=== PATIENT | male | born 1940 | race Caucasian/White ===

== ENCOUNTER → 2017-06-23 12:22 | Outpatient (CLI) | payer MEDICARE, SELFPAY ==
--- NOTE | 2017-06-23 12:27 | RAD_ITS ---
STUDY: X-RAY - PELVIS REASON FOR EXAM: Male, 76 years old. Low back pain TECHNIQUE: One view of the pelvis was obtained. COMPARISON: None. FINDINGS: The sacroiliac and hip joints are normal. There are no acute fractures or dislocations. A few phleboliths are in the pelvis. RAD/Pelvis 1 or 2 Views IMPRESSION: No fractures. The sacroiliac and hip joints are well-maintained. Electronically Signed: Abdoulaye Gomez, at 8:23 EST Tel , Service support ,
== END ==
PROVIDERS: Family Provider Family Medicine; PCP Family Medicine; Visit Provider Family Medicine
DX: M54.5 Low back pain (principal)
CPT/HCPCS: 72170; 97035; 97110; 97162; 97530

== ENCOUNTER → 2017-07-10 15:03 | Outpatient (CLI) | payer MEDICARE, SELFPAY ==
[2017-07-10 18:33] LABS: Absolute Neutrophil Count 7.5 X10^3/uL (2.0-7.7); Basophil# 0.02 X10^3/uL; Basophil% 0.2 % (0-1); Eosinophil# 0.02 X10^3/uL; Eosinophils% 0.2 % (0-5); Hematocrit 43.9 % (40-54); Hemoglobin 14.9 g/dl (13.0-16.5); Lymphocyte % 8.2 % (19-41); Mean Corp Hgb Conc 33.9 g/gl (32-36); Mean Corpuscular Hgb 32.5 pg (27.0-32.0); Mean Corpuscular Volume 95.9 fL (80-94); Mean Platelet Vol. 10.2 fl (6.2-12.0); Monocyte# 0.32 X10^3/uL; Monocyte% 3.7 % (0-10); Neutrophil % 87.6 % (47-70); Platelet Count 216 K/mm3 (150-450); RBC Distribution Width CV 14.3 % (11.6-14.6); RBC Distribution Width SD 48.2 fl (35.1-43.9); Red Blood Count 4.58 M/mm3 (4.6-6.2); White Blood Count 8.6 K/mm3 (4.4-11.0)
[2017-07-10 18:54] LABS: POSITIVE COUNT NO; POSITIVE DIFFERENTIAL NO; POSITIVE MORPHOLOGY NO
[2017-07-10 18:59] LABS: ALB/GLOB Ratio 1.2 RATIO (0.9-2.4); AST(SGOT) 22 U/L (15-37); Alanine Aminotransfer ALT/SGPT 32 U/L (16-61); Albumin, Serum 3.9 g/dL (3.2-5.0); Alkaline Phosphatase 52 U/L (45-117); Anion Gap 9 (5-15); BUN 10 mg/dL (7-18); BUN/Creat Ratio 11.1 RATIO (10-20); Chloride 104 mmol/L (98-107); EST Glomerular Filtration Rate 87 mL/min (>60); Est Glom Filt Rate - Afr Amer 106 mL/min (>60); Globulin 3.3 g/dL (2.2-4.2); Glucose 113 mg/dL (74-106); Potassium 4.1 mmol/L (3.5-5.1); Protein, Total 7.2 g/dL (6.4-8.2); Sodium Level 140 mmol/L (136-145)
== END ==
PROVIDERS: Family Provider Family Medicine; PCP Family Medicine; Visit Provider Internal Medicine Rheumatology
DX: M05.79 Rheumatoid arthritis with rheumatoid factor of multiple sites without organ or systems involvement (principal); Z79.899 Other long term (current) drug therapy; M17.0 Bilateral primary osteoarthritis of knee; G47.00 Insomnia, unspecified; M21.40 Flat foot [pes planus] (acquired), unspecified foot; M47.897 Other spondylosis, lumbosacral region; I87.2 Venous insufficiency (chronic) (peripheral)
CPT/HCPCS: 36415; 80053; 85025

== ENCOUNTER 2017-07-11 14:30 | Outpatient (RCR) | payer MEDICARE, SELFPAY ==
--- NOTE | 2017-06-01 12:36 | HP.PTEVAL_ITS ---
Patient's Visit Information BRYCE ANN is a 76 year old M referred to Physical Therapy by MD SHAY Hurley with a diagnosis of LOW BACK PAIN. Date of Evaluation: 06/01/17 Physical Therapist: Kyree Dominguez PT, - Visit Plan Frequency: 2x /Week Duration: 4 Weeks Plan: POSTURAL EX'S,DLS,MODALTIES,STRETCHING - Subjective Subjective: This 76 y/o male presents to physical therapy low back pain for several years. Location of symptoms symmtrical lumbar radiates to left buttuck. Symptoms worse AM ,walking,standing,lifting,bending. Symptoms better with sitting. Sleeping okay at night, Coughing/sneezing -. Bowel/ bladder good. Patient has h/o lumbar pain in past had PT. Denies parathezsia/tingling -. Seen Dr cazares. SOCAIL: single. 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 - Pain Bilateral Back Pain Intensity (Out of 10): 8 Pain Intensity Range: 10 - Objective POSTURE: mild foward posture,posterior pelvic tilt. GAIT: mild foward posture normal yesica reciprocal pattern. NUERO: denies parathesia/tingling ,reflexes L3-4,L4-5,L5-S1 1/3. SYMMTRIES:align. MMT: quads/hams 4/5,hip 4-/5,ankle 4/5. LUMBAR ROM: flexion WFL,extension mod/severe,side glides mod loss. FLEXABILTY : hams. PALAPTION: tender piriformis left - Special Tests L/S Slump test left side: Negative L/S Slump test right side: Negative L/S Left Straight Leg Raise: Negative L/S Right Straight Leg Raise: Negative Lumbar Standing: Flexion - Mechanical Response: No effect Lumbar Standing: Flexion - Symptoms During Testing: Increases Lumbar Standing: Flexion - Symptoms After Testing: No worse Lumbar Standing: Extension - Mechanical Response: No effect Lumbar Standing: Extension - Symptoms During Testing: Increases Lumbar Standing: Extension - Symptoms After Testing: No worse Lumbar Lying: Flexion - Mechanical Response: No effect Lumbar Lying: Flexion - Symptoms During Testing: Increases Lumbar Lying: Flexion - Symptoms After Testing: No worse - Goals Goal 1:: Independant with HEP. Goal Time Frame: 4-6 Weeks Goal 2:: Indeendant with posture with ADL'S. Goal Time Frame: 4-6 Weeks Goal 3:: Patient to decrease lumbar pain and buttucks symptoms by 50% to improve function with ADL'S Goal Time Frame: 4-6 Weeks Goal 4:: Patient improve lumbar ROM for function of recovery with less pain. Goal Time Frame: 4-6 Weeks Goal 5:: Patient be able to perform ADL'S ,job demands and housework tasks. Goal Time Frame: 4-6 Weeks - Rehabilitation Potential Physical Therapy Diagnosis: This patient has lumbar pain with decrease lumbar ROM , decrease abdominal /back strength,. pain with function with walking and standing thus benifit from skilled PT Rehabilitation Potential: Good - Anticipated Interventions Patient/Client Instruction: Educate patient on: Condition, Plan of Care For the Purpose of:: To decrease pain, To increase ROM, To improve muscle performance and motor function, To improve ability to perform ADL's, To increase tolerance to activity/condition/position, To improve performance and independence with ADL's, To improve ability of physical actions for home/ community/work/leisure, To improve health of tissue, To decrease soft tissue restriction, To increase flexibility/ROM, To assume or resume ADL's, To improve ability to perform tasks related to life management Therapeutic Exercise to Include: Strength training, Postural training, Flexibilty training, Dynamic Lumbar Stabilization For the Purpose of:: To decrease pain, To increase ROM, To improve muscle performance and motor function, To increase tolerance to activity/condition/ position, To improve performance and independence with ADL's, To improve ability of physical actions for home/community/work/leisure, To improve health of tissue, To decrease soft tissue restriction, To increase flexibility/ROM, To improve health and function, To improve ability to perform tasks related to life management TENS: Yes Cryotherapy (ice pack, ice massage): Yes Thermo therapy (hot pack): Yes Ultrasound (thermal/non thermal): Yes For the Purpose of:: To decrease swelling/inflammation, To improve nutrient delivery to tissue, To increase oxygenation perfusion, To improve health of tissue, To decrease soft tissue restriction Thank you for the opportunity to evaluate your patient. For Medicare and Medicare HMO plans, please review the plan of care and approve it. It will need to be FAXED BACK to us at [phone] for Medicare purposes. Please let me know if there are questions or concerns regarding this plan of care. Physician Signature: Date:
--- NOTE | 2017-07-14 14:13 | HP.PTDCSUM ---
HP - PT D/C Summary It has been my pleasure to treat BRYCE ANN under orders from Gloria Hazel MD, for the diagnosis of LOW BACK PAIN for a total of 10 visit(s). Discharge Date: 07/14/17 Please see the following information for a summary of their discharge status. - Subjective Subjective: Pain is bad with sitting,in morning getting OOB ,walking. Also coughing . pain 10/10 in morning symmtrical lumbar to hams/buttucKl left side. Plan to see DR Gabby Reveles. - Pain Bilateral Back Pain Intensity (Out of 10): 7 - Objective Objective/Function: POSTURE: foward posture ,reduce lordosis. PALPATION: tender L-S /erctor,priformis. GAIT: antalgic gait left side. MMT: hip flexion 3+/5,quads/hams 4-5/5. LUMBAR ROM: mod loss pain,extension severe loss pain right side - Goals Goal 1:: Independant with HEP. Goal 2:: Indeendant with posture with ADL'S. Goal 3:: Patient to decrease lumbar pain and buttucks symptoms by 50% to improve function with ADL'S Goal 4:: Patient improve lumbar ROM for function of recovery with less pain. Goal 5:: Patient be able to perform ADL'S ,job demands and housework tasks. - Plan Plan: recommend ortho consult and further diagnostics - D/C Information Discharge Comments: ortho consult and further diagnostics If there are questions or concerns regarding this patient's physical therapy, please feel free to call me at [phone]. Thank you for the referral of this patient. Sincerely, Kyree Dominguez, PT,
== END 2017-07-11 19:00 | disposition home or self-care (01) ==
LOC: PT 14:30
PROVIDERS: Family Provider Family Medicine; PCP Family Medicine; Visit Provider Family Medicine
DX: M54.5 Low back pain (principal)
CPT/HCPCS: 97012; 97035; 97110; 97162; 97530

== ENCOUNTER → 2017-07-28 11:09 | Outpatient (CLI) | payer MEDICARE, SELFPAY ==
[2017-07-28 11:28] VITALS: BP 128/73; PULSE 84; RESP 16; TEMP 36.6; O2SAT 95; BMI 27.4
== END ==
PROVIDERS: Family Provider Family Medicine; PCP Family Medicine; Visit Provider Internal Medicine Rheumatology
DX: M05.79 Rheumatoid arthritis with rheumatoid factor of multiple sites without organ or systems involvement (principal)
CPT/HCPCS: 96365; J7050; A4216; J1602

== ENCOUNTER → 2017-09-22 11:12 | Outpatient (CLI) | payer MEDICARE, SELFPAY ==
[2017-09-22 11:21] VITALS: BP 135/68; PULSE 84; RESP 16; TEMP 36.6; O2SAT 95; BMI 27.9
== END ==
LOC: MEDOUTP 11:12
PROVIDERS: Family Provider Family Medicine; PCP Family Medicine; Visit Provider Internal Medicine Rheumatology
DX: M05.79 Rheumatoid arthritis with rheumatoid factor of multiple sites without organ or systems involvement (principal)
CPT/HCPCS: 96365; J7050; A4216; J1602

== ENCOUNTER → 2017-09-28 12:12 | Outpatient (CLI) | payer MEDICARE, SELFPAY ==
[2017-09-28 14:19] LABS: Absolute Lymphocyte Count 0.97 X10^3/ul (0.83-4.51); Absolute Neutrophil Count 5.2 X10^3/uL (2.0-7.7); Basophil# 0.02 X10^3/uL; Basophil% 0.3 % (0-1); Eosinophil# 0.07 X10^3/uL; Eosinophils% 1.1 % (0-5); Hematocrit 42.8 % (40-54); Hemoglobin 13.9 g/dl (13.0-16.5); Lymphocyte # 0.97 X10^3/ul (4.0); Lymphocyte % 14.7 % (19-41); Mean Corp Hgb Conc 32.5 g/gl (32-36); Mean Corpuscular Hgb 30.8 pg (27.0-32.0); Mean Corpuscular Volume 94.9 fL (80-94); Mean Platelet Vol. 9.8 fl (6.2-12.0); Monocyte# 0.35 X10^3/uL; Monocyte% 5.3 % (0-10); Neutrophil # 5.17 X10^3/uL (2.7-7.7); Neutrophil % 78.6 % (47-70); Platelet Count 200 K/mm3 (150-450); RBC Distribution Width CV 14.3 % (11.6-14.6); Red Blood Count 4.51 M/mm3 (4.6-6.2); White Blood Count 6.6 K/mm3 (4.4-11.0)
[2017-09-28 14:20] LABS: POSITIVE COUNT NO; POSITIVE DIFFERENTIAL NO; POSITIVE MORPHOLOGY NO
[2017-09-28 14:43] LABS: ALB/GLOB Ratio 1.1 RATIO (0.9-2.4); AST(SGOT) 19 U/L (15-37); Alanine Aminotransfer ALT/SGPT 29 U/L (16-61); Albumin, Serum 3.6 g/dL (3.2-5.0); Alkaline Phosphatase 51 U/L (45-117); Anion Gap 8 (5-15); BUN 6 mg/dL (7-18); BUN/Creat Ratio 7.1 RATIO (10-20); Calcium,Total 8.6 mg/dL (8.5-10.1); Chloride 102 mmol/L (98-107); Creatinine, Serum 0.84 mg/dL (0.70-1.30); EST Glomerular Filtration Rate 94 mL/min (>60); Est Glom Filt Rate - Afr Amer 114 mL/min (>60); Globulin 3.2 g/dL (2.2-4.2); Glucose 94 mg/dL (74-106); Potassium 4.1 mmol/L (3.5-5.1); Protein, Total 6.8 g/dL (6.4-8.2); Sodium Level 138 mmol/L (136-145)
== END ==
LOC: MTLAB 12:14
PROVIDERS: Family Provider Family Medicine; PCP Family Medicine; Visit Provider Internal Medicine Rheumatology
DX: M05.70 Rheumatoid arthritis with rheumatoid factor of unspecified site without organ or systems involvement (principal); Z79.899 Other long term (current) drug therapy; M17.0 Bilateral primary osteoarthritis of knee; G47.00 Insomnia, unspecified; M21.40 Flat foot [pes planus] (acquired), unspecified foot; M47.897 Other spondylosis, lumbosacral region; I87.2 Venous insufficiency (chronic) (peripheral)
CPT/HCPCS: 36415; 80053; 85025

== ENCOUNTER → 2017-11-17 11:22 | Outpatient (CLI) | payer MEDICARE, SELFPAY ==
[2017-11-17 11:36] VITALS: BP 124/75; PULSE 92; RESP 16; TEMP 37.2; O2SAT 97; BMI 28.4
== END ==
LOC: MEDOUTP 11:23
PROVIDERS: Family Provider Family Medicine; PCP Family Medicine; Visit Provider Internal Medicine Rheumatology
DX: M05.79 Rheumatoid arthritis with rheumatoid factor of multiple sites without organ or systems involvement (principal)
CPT/HCPCS: 96365; J7050; A4216; J1602

== ENCOUNTER → 2017-12-11 16:30 | Outpatient (CLI) | payer MEDICARE, SELFPAY ==
[2017-12-11 18:06] LABS: ALB/GLOB Ratio 1.1 RATIO (0.9-2.4); AST(SGOT) 26 U/L (15-37); Absolute Lymphocyte Count 0.77 X10^3/ul (0.83-4.51); Absolute Neutrophil Count 6.2 X10^3/uL (2.0-7.7); Alanine Aminotransfer ALT/SGPT 35 U/L (16-61); Albumin, Serum 3.5 g/dL (3.2-5.0); Alkaline Phosphatase 47 U/L (45-117); Anion Gap 8 (5-15); BUN 9 mg/dL (7-18); BUN/Creat Ratio 9.5 RATIO (10-20); Basophil# 0.01 X10^3/uL; Basophil% 0.1 % (0-1); Calcium,Total 8.6 mg/dL (8.5-10.1); Chloride 104 mmol/L (98-107); Creatinine, Serum 0.94 mg/dL (0.70-1.30); EST Glomerular Filtration Rate 83 mL/min (>60); Eosinophil# 0.01 X10^3/uL; Eosinophils% 0.1 % (0-5); Est Glom Filt Rate - Afr Amer 100 mL/min (>60); Globulin 3.3 g/dL (2.2-4.2); Glucose 90 mg/dL (74-106); Hematocrit 42.2 % (40-54); Lymphocyte # 0.77 X10^3/ul (4.0); Lymphocyte % 10.4 % (19-41); Mean Corp Hgb Conc 33.2 g/gl (32-36); Mean Corpuscular Hgb 31.9 pg (27.0-32.0); Mean Corpuscular Volume 96.1 fL (80-94); Mean Platelet Vol. 10.1 fl (6.2-12.0); Monocyte# 0.41 X10^3/uL; Monocyte% 5.5 % (0-10); Neutrophil # 6.19 X10^3/uL (2.7-7.7); Neutrophil % 83.8 % (47-70); Platelet Count 221 K/mm3 (150-450); Potassium 4.5 mmol/L (3.5-5.1); Protein, Total 6.8 g/dL (6.4-8.2); RBC Distribution Width CV 14.6 % (11.6-14.6); RBC Distribution Width SD 49.3 fl (35.1-43.9); Red Blood Count 4.39 M/mm3 (4.6-6.2); Sodium Level 139 mmol/L (136-145); White Blood Count 7.4 K/mm3 (4.4-11.0)
[2017-12-11 18:08] LABS: POSITIVE COUNT NO; POSITIVE DIFFERENTIAL NO; POSITIVE MORPHOLOGY NO
== END ==
PROVIDERS: Family Provider Family Medicine; PCP Family Medicine; Visit Provider Internal Medicine Rheumatology
DX: M05.70 Rheumatoid arthritis with rheumatoid factor of unspecified site without organ or systems involvement (principal); Z79.899 Other long term (current) drug therapy; M17.0 Bilateral primary osteoarthritis of knee; G47.00 Insomnia, unspecified; M21.40 Flat foot [pes planus] (acquired), unspecified foot; M47.897 Other spondylosis, lumbosacral region; I87.2 Venous insufficiency (chronic) (peripheral)
CPT/HCPCS: 36415; 80053; 85025

== ENCOUNTER → 2018-01-01 16:18 | Outpatient (CLI) | payer MEDICARE, SELFPAY ==
[2018-01-01 17:03] LABS: PSA,Total - Annual Screen 0.56 ng/mL (0.00-4.00)
== END ==
PROVIDERS: Family Provider Family Medicine; PCP Family Medicine; Visit Provider Nurse Practitioner Adult Health
DX: Z12.5 Encounter for screening for malignant neoplasm of prostate (principal)
CPT/HCPCS: 36415; 84153; G0103

== ENCOUNTER → 2018-01-17 14:05 | Outpatient (CLI) | payer MEDICARE, SELFPAY ==
[2018-01-17 14:25] VITALS: BP 111/63; PULSE 69; RESP 18; TEMP 36.9; O2SAT 95; BMI 27.6
== END ==
LOC: MEDOUTP 14:05
PROVIDERS: Family Provider Family Medicine; PCP Family Medicine; Visit Provider Internal Medicine Rheumatology
DX: M05.79 Rheumatoid arthritis with rheumatoid factor of multiple sites without organ or systems involvement (principal)
CPT/HCPCS: 96365; A4216; J1602

== ENCOUNTER → 2018-03-01 12:39 | Outpatient (CLI) | payer MEDICARE, SELFPAY ==
[2018-03-01 14:00] LABS: Absolute Lymphocyte Count 0.77 X10^3/ul (0.83-4.51); Absolute Neutrophil Count 7.5 X10^3/uL (2.0-7.7); Basophil# 0.02 X10^3/uL; Basophil% 0.2 % (0-1); Eosinophil# 0.07 X10^3/uL; Eosinophils% 0.8 % (0-5); Hematocrit 42.6 % (40-54); Hemoglobin 13.8 g/dl (13.0-16.5); Lymphocyte # 0.77 X10^3/ul (4.0); Lymphocyte % 8.6 % (19-41); Mean Corp Hgb Conc 32.4 g/gl (32-36); Mean Corpuscular Hgb 31.8 pg (27.0-32.0); Mean Corpuscular Volume 98.2 fL (80-94); Monocyte# 0.56 X10^3/uL; Monocyte% 6.3 % (0-10); Neutrophil # 7.49 X10^3/uL (2.7-7.7); Platelet Count 194 K/mm3 (150-450); RBC Distribution Width CV 14.1 % (11.6-14.6); RBC Distribution Width SD 51.2 fl (35.1-43.9); Red Blood Count 4.34 M/mm3 (4.6-6.2); White Blood Count 8.9 K/mm3 (4.4-11.0)
[2018-03-01 14:01] LABS: POSITIVE COUNT NO; POSITIVE DIFFERENTIAL NO; POSITIVE MORPHOLOGY NO
[2018-03-01 14:13] LABS: ALB/GLOB Ratio 1.2 RATIO (0.9-2.4); AST(SGOT) 22 U/L (15-37); Alanine Aminotransfer ALT/SGPT 29 U/L (16-61); Albumin, Serum 3.6 g/dL (3.2-5.0); Alkaline Phosphatase 45 U/L (45-117); Anion Gap 9 (5-15); BUN 11 mg/dL (7-18); BUN/Creat Ratio 12.3 RATIO (10-20); Calcium,Total 8.8 mg/dL (8.5-10.1); Chloride 102 mmol/L (98-107); EST Glomerular Filtration Rate 88 mL/min (>60); Est Glom Filt Rate - Afr Amer 106 mL/min (>60); Globulin 3.1 g/dL (2.2-4.2); Glucose 89 mg/dL (74-106); Potassium 4.2 mmol/L (3.5-5.1); Protein, Total 6.7 g/dL (6.4-8.2); Sodium Level 138 mmol/L (136-145)
== END ==
LOC: MTLAB 12:40
PROVIDERS: Family Provider Family Medicine; PCP Family Medicine; Referring Provider Internal Medicine Rheumatology; Visit Provider Internal Medicine Rheumatology
DX: M05.70 Rheumatoid arthritis with rheumatoid factor of unspecified site without organ or systems involvement (principal); Z79.899 Other long term (current) drug therapy; M17.0 Bilateral primary osteoarthritis of knee; G47.00 Insomnia, unspecified; M21.40 Flat foot [pes planus] (acquired), unspecified foot; M47.897 Other spondylosis, lumbosacral region; I87.2 Venous insufficiency (chronic) (peripheral); N40.1 Benign prostatic hyperplasia with lower urinary tract symptoms
CPT/HCPCS: 36415; 80053; 85025

== ENCOUNTER → 2018-03-13 11:04 | Outpatient (CLI) | payer MEDICARE, SELFPAY ==
[2018-03-13 11:20] VITALS: BP 126/68; PULSE 60; RESP 14; TEMP 36.8; O2SAT 96; BMI 28.8
== END ==
LOC: MEDOUTP 11:04
PROVIDERS: Family Provider Family Medicine; PCP Family Medicine; Referring Provider Internal Medicine Rheumatology; Visit Provider Internal Medicine Rheumatology
DX: M05.79 Rheumatoid arthritis with rheumatoid factor of multiple sites without organ or systems involvement (principal)
CPT/HCPCS: 96365; J7050; A4216; J1602

== ENCOUNTER 2018-03-24 11:36 | Emergency (ER) | payer MEDICARE, SELFPAY ==
[2018-03-24 11:37] VITALS: BP 127/70; PULSE 87; RESP 18; TEMP 37.2; O2SAT 99; BMI 28.0
--- NOTE | 2018-03-24 12:27 | CT_ITS ---
STUDY: CT ABDOMEN AND PELVIS WITHOUT CONTRAST REASON FOR EXAM: Male, 77 years old. Pain at umbilicus and rectal pain RADIATION DOSAGE (If Supplied By Facility): CTDIvol = ( 7.61 ) mGy, DLP = ( 334.67 ) mGycm TECHNIQUE: Transaxial images were obtained from the dome of the diaphragm to the symphysis pubis without oral contrast, and without intravenous contrast. Sagittal and coronal images were reconstructed. Individualized dose optimization techniques were used for this CT. COMPARISON: None. FINDINGS: The visualized lung bases are unremarkable. The visualized portions of the heart are within normal limits. Normal liver. There is non-visualization of the gallbladder, which may be secondary to either contraction or a prior cholecystectomy. Normal spleen. Normal pancreas. Normal bilateral adrenal glands. Normal right kidney. Normal left kidney. Normal visualized stomach. Normal small intestine. There are multiple colonic diverticula consistent with diverticulosis. There is non-visualization of the appendix. Normal abdominal aorta. Normal inferior vena cava. Normal retroperitoneum. Normal urinary bladder. There are prostatic calcifications. Fat-containing left inguinal hernia. Umbilical fat hernia. Small fat-containing hernia in the supraumbilical midline anterior abdominal wall. There are diffuse degenerative changes of the visualized lumbar spine. CT/Abdomen/Pelvis without Cont IMPRESSION: Umbilical fat hernia. Small fat-containing hernia in the supraumbilical midline anterior abdominal wall. Fat-containing left inguinal hernia. No bowel herniations are seen. No evidence of acute intestinal pathology or acute obstructive uropathy. Electronically Signed: Aroldo Mcfadden MD at 13:17 EDT Tel , Service support ,
[2018-03-24 13:29] VITALS: BP 110/72; PULSE 72; RESP 16; O2SAT 98
--- NOTE | 2018-03-24 13:29 | ED.VISSUMM ---
- ER Visit Summary Date of Service: 03/24/18 Chief Complaint: Abdominal pain History of Present Illness: The patient is a 77 M who states for the past several weeks he is believe he has had a abdominal hernia. He states the hernia is always gone back again but last night around 1800 hrs. he was eating a large meal and felt his hernia come out and it was painful for him. He was unable to get back in. He comes the emergency department today for evaluation. States he is felt rather constipated lately. He takes narcotic pain medicine for chronic pain. History of rheumatoid arthritis. He states that 30+ years ago he had an umbilical hernia repair. Physical Examination: Afebrile vital signs stable Gen: Well-nourished well-developed Head: Normocephalic atraumatic Eyes: Perrl EOMI ENT: TMs clear no rhinorrhea moist mucous membranes Neck: Supple no lymphadenopathy no JVD nontender CVS: Regular rate rhythm no murmurs normal S1-S2 Respiratory: No distress clear to auscultation bilaterally chest nontender Abdomen: Soft mild tender to palpation in the midline in the supraumbilical region. There is diastases of the abdominal musculature. There is a small hernia felt. Nondistended normal bowel sounds no masses Back: Nontender Extremity: Nontender no edema Skin: Normal color no rash Neuro: alert orientated ?3 CN II-XII intact normal strength sensation reflexes gait cerebellar Psych: Normal affect normal mood Test Results: CT of the abdomen demonstrates a small fat filled supra umbilical hernia. Emergency Department Course and Treatment: There is no incarceration. No obvious bowel obstruction. Advised him to take stool softener and apple juice. He may follow-up with his primary care physician and local surgery learning solutions specialist if he chooses. Advised to eat small meals and to stay hydrated. Impression: 1. Ventral hernia This note was generated with [employer] dictation software. It may contain incorrect words, spelling, and punctuation that were not noted in review of the chart prior to signing ED Disposition - Plan for ED Patient: Disposition: Home or Assisted Living Chief Complaint: Abd Pain Instructions: What Is a Hernia? Referrals: Jeronimo Becker MD [STAFF PHYSICIAN] - (if you wish to follow up with a local surgeon ) Gloria Hazel MD [Primary Care Provider] - (call to arrange follow up appointment)
== END 2018-03-24 13:45 | disposition home or self-care (01) ==
PROVIDERS: Emergency Provider Emergency Medicine; Family Provider Family Medicine; PCP Family Medicine
DX: K43.9 Ventral hernia without obstruction or gangrene (principal); M06.9 Rheumatoid arthritis, unspecified; G89.29 Other chronic pain
CPT/HCPCS: 74176; 99282

== ENCOUNTER → 2018-05-14 11:02 | Outpatient (CLI) | payer MEDICARE, SELFPAY ==
[2018-03-30 14:55] VITALS: BMI 27.8
[2018-05-14 11:24] VITALS: BP 132/74; PULSE 78; RESP 16; TEMP 36.9; O2SAT 97; BMI 28.0
--- OUTSIDE RECORDS SUMMARY | 2018-08-16 00:16 | XMS RPT_ITS ---
:1940 Author Organization [place] Support Name Relationship Address Phone COW Unavailable [address] + [place] [address] RONI NELSON Unavailable [address] + [place] [address] COW Unavailable [address] + [place] [address] RONI NELSON Unavailable [address] + [place] [address] COW Unavailable [address] + [place] [address] RONI NELSON Unavailable [address] + [place] [address] COW Unavailable [address] + [place] [address] RONI NELSON Unavailable [address] + [place] [address] COW Unavailable [address] + [place] [address] RONI NELSON Unavailable [address] + [place] [address] COW Unavailable [address] + [place] [address] RONI NELSON Unavailable [address] + [place] [address] OFELIA ANN Unavailable [address] + [place] [address] COW Unavailable [address] + [place] [address] RONI NELSON Unavailable [address] + [place] [address] OFELIA ANN Unavailable [address] + [place] [address] COW Unavailable [address] + [place] [address] RONI NELSON Unavailable [address] + [place] [address] OFELIA ANN Unavailable [address] + [place] [address] COW Unavailable [address] + [place] [address] RONI NELSON Unavailable [address] + [place] [address] OFELIA ANN Unavailable [address] + [place] [address] COW Unavailable [address] + [place], [place] [address]RONI WELLINGTON Unavailable [address] + [place] [address] OFELIA ANN Unavailable [address] + [facility] [place] [address] + [place] [address] RONI NELSON Unavailable [address] + [place] [address] OFELIA ANN Unavailable [address] + [place] [place] [address] + [place], [place] [address]RONI KRISHNAMURTHY Unavailable [address] + [place] [address] OFELIA ANN Unavailable [address] + [place] [address] + [place], [place] [address]RONI KRISHNAMURTHY Unavailable [address] + [place] [address] OFELIA ANN Unavailable [address] + [place] [address] + [place], [place] [address]RNOI WELLINGTON Unavailable [address] + [place] [address] OFELIA ANN Unavailable [address] + [place] [address] + [place] [address] RONI NELSON Unavailable [address] + [place] [address] OFELIA ANN Unavailable [address] + [place] [address] + [place] [address] RONI NELSON Unavailable [address] + [place] [address] OFELIA ANN Unavailable [address] + [place] [address] + [place] [address] RONI NELSON Unavailable [address] + [place] [address] OFELIA ANN Unavailable [address] + [place] [address] + [place] [address] RONI NELSON Unavailable [address] + [place] [address] OFELIA ANN Unavailable [address] + [place] [address] + [place] [address] RONI NELSON Unavailable [address] + [place] [address] OFELIA ANN Unavailable [address] + [place] [address] + [place] [address] RONI NELSON Unavailable [address] + [place] [address] Care Team Providers Name Role Phone Dayana Plasencia Attending Unavailable Dayana Plasencia Referring Unavailable Gloria Hazel Primary Care Unavailable Jeronimo Becker Attending Unavailable Calabretta, Jeronimo Referring Unavailable Jolliff, Gloria Primary Care Unavailable DeHorta, Josse Consulting Unavailable Calabretta, Jeronimo Consulting Unavailable Jolliff, Gloria Attending Unavailable Jolliff, Gloria Primary Care Unavailable Jolliff, Gloria Referring Unavailable Frank Siu Attending Unavailable Calabretta, Jeronimo Referring Unavailable Vellanki, Dayana Attending Unavailable Vellanki, Dayana Referring Unavailable Jolliff, Gloria Primary Care Unavailable Calabretta, Jeronimo Attending Unavailable Jolliff, Gloria Referring Unavailable Jolliff, Gloria Attending Unavailable Jolliff, Gloria Primary Care Unavailable Vellanki, Dayana Attending Unavailable Vellanki, Dayana Referring Unavailable Jolliff, Gloria Primary Care Unavailable Vellanki, Dayana Attending Unavailable Vellanki, Dayana Referring Unavailable Jolliff, Gloria Primary Care Unavailable Vellanki, Dayana Attending Unavailable Vellanki, Dayana Referring Unavailable Jolliff, Gloria Primary Care Unavailable Vellanki, Dayana Attending Unavailable Vellanki, Dayana Referring Unavailable Jolliff, Gloria Primary Care Unavailable Vellanki, Dayana Attending Unavailable Vellanki, Dayana Referring Unavailable Jolliff, Gloria Primary Care Unavailable Vellanki, Dayana Attending Unavailable Vellanki, Dayana Referring Unavailable Jolliff, Gloria Primary Care Unavailable Tracy, Nelda M Attending Unavailable Tracy, Nelda M Referring Unavailable Jolliff, Gloria Primary Care Unavailable Vellanki, Dayana Attending Unavailable Vellanki, Dayana Referring Unavailable Jolliff, Gloria Primary Care Unavailable Vellanki, Dayana Attending Unavailable Vellanki, Dayana Referring Unavailable Jolliff, Gloria Primary Care Unavailable Vellanki, Dayana Attending Unavailable Vellanki, Dayana Referring Unavailable Jolliff, Gloria Primary Care Unavailable Jolliff, Gloria Primary Care Unavailable Tomi Casiano Attending Unavailable Calabretta, Jeronimo Attending Unavailable Jolliff, Gloria Referring Unavailable Calabretta, Jeronimo Attending Unavailable Calabretta, Jeronimo Referring Unavailable Jolliff, Gloria Primary Care Unavailable DeHorta, Josse Consulting Unavailable PROBLEMS PROBLEMS DATE TYPE CONDITION / CODE ATTENDING STATUS SOURCE 05/15/2018 Unknown Z87.19 - Personal Rosita, Active [place] history of other Counts Include [facility] diseases of the Hospital digestive system / Repository Z87.19(ICD-10) 05/15/2018 Unknown Z98.890 - Other Rosita, Active [place] specified [facility] / Z98.890(ICD-10) Repository 05/21/2018 Unknown R94.31 - Abnormal Sherron, [place] Bottom Active [place] electrocardiogram Community [ECG] [EKG] / Hospital R94.31(ICD-10) Repository 03/30/2018 Unknown K42.9 - Umbilical Calabretta, Active [place] hernia without Counts Include [facility] obstruction or Hospital gangrene / Repository K42.9(ICD-10) 03/01/2018 Unknown Z79.899 - Other long Pardeeplanki, Active [place] term (current) drug [facility] therapy / Hospital Z79.899(ICD-10) Repository 03/01/2018 Unknown 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, 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 / Hospital M17.0(ICD-10) Repository 03/01/2018 Unknown G47.00 - Insomnia, Erinn, Active [place] unspecified / [facility] G47.00(ICD-10) Hospital Repository 03/01/2018 Unknown M21.40 - Flat foot Erinn, Active [place] [pes planus] [facility] (acquired), Hospital unspecified foot / Repository M21.40(ICD-10) 03/01/2018 Unknown M47.897 - Other Vellanki, Active [place] spondylosis, [facility] lumbosacral region / Hospital M47.897(ICD-10) Repository 03/01/2018 Unknown I87.2 - Venous Vellanming, Active [place] insufficiency [facility] (chronic) (peripheral) Hospital / I87.2(ICD-10) Repository 03/01/2018 Unknown M05.70 - Rheumatoid Vellanki, Active [place] arthritis with [facility] rheumatoid factor of Hospital unspecified site Repository without organ or systems involvement / M05.70(ICD-10) 03/01/2018 Unknown N40.1 - Benign Vellanki, Active [place] prostatic hyperplasia [facility] with lower urinary Hospital tract symptoms / Repository N40.1(ICD-10) 07/19/2017 Unknown M54.5 - Low back pain Gloria Hazel Active [place] / M54.5(ICD-10) [facility] Hospital Repository 07/10/2017 Unknown M05.79 - Rheumatoid Vellanki, Active [place] arthritis with [facility] rheumatoid factor of Hospital multiple sites without Repository organ or systems involvement / M05.79(ICD-10) PROCEDURES PROCEDURES No Procedure Records FoundRESULTS RESULTS SURGERY VISIT REPORT Observed: 06/01/2018 Status: F Source: [place] 12:05 PM [facility] REPOSITORY [facility] [address] [place] [address] OFFICE VISIT Date of Service: 05/30/18 MR#: [id number] Acct: [id number] Name: BRYCE ANN Rep #: [id number] : 1940 Provider: Jeronimo Becker MD Age/Sex: 77/M Location: [facility] Status: Signed Intake Intake Visit Reasons: 2 WK F/U Hernia Surgery 05/15 Chief Complaint: SIMPONI Hacksaw Inspector Required: No Is patient in pain?: No Allergies No Known Allergies Allergy (Verified 05/30/18 10:42) Medications Ascorbic Acid [Vitamin C] 500 mg PO DAILY 10/09/14 [History Confirmed 05/30/18] Calcium Carb/Vitamin D [Caltrate-600 With Vit D Tab] 1 tab PO DAILY@0800 10/09/14 [History Confirmed 05/30/18] Cyanocobalamin [Vitamin B12] 5,000 mcg PO DAILY@0800 10/09/14 [History Confirmed 05/30/18] Cyclobenzaprine [Flexeril] 10 mg PO DAILY 10/09/14 [History Confirmed 05/30/18] Folic Acid 1 mg PO DAILY@0800 10/09/14 [History Confirmed 05/30/18] Hydroxychloroquine [Plaquenil] 200 mg PO BIDCM 10/09/14 [History Confirmed 05/30/18] Methotrexate 20 mg PO Q7D 10/09/14 [History Confirmed 05/30/18] predniSONE tablet 10 mg PO DAILY 10/09/14 [History Confirmed 05/30/18] Aspirin [Aspirin, Baby] 81 mg PO DAILY@0800 08/19/16 [History Confirmed 05/30/18] Trazodone HCl 150 mg PO QHS 09/22/17 [History Confirmed 05/30/18] Methocarbamol [Robaxin] 1,500 mg PO DAILY PRN 03/13/18 [History Confirmed 05/30/18] Golimumab [Simponi Aria] IV X1 03/24/18 [History Confirmed 05/30/18] Oxycodone HCl/Acetaminophen [Percocet 5/325] 2 tab PO DAILY PRN 03/24/18 [History Confirmed 05/30/18] Multivitamins,Therapeutic [Multivitamin] 1 tab PO DAILY 05/08/18 [History Confirmed 05/30/18] Subjective Details: Patient is doing well after his umbilical hernia repair. Objective Details: There is some ecchymosis around his incision but no drainage or erythema. No signs of recurrence of hernia. Assessment AND Plan Problems 1. Recurrent umbilical hernia K42.9 Plan Patient is doing well after umbilical hernia surgery. I advised him to take 2 more weeks with no heavy lifting and then he can return to full duty. Follow-up as needed Jeronimo Becker MD Pager: [facility] [address] [place] [address], [address] [place] [address] Office: Coding Level of Care Code Global Post Op Diagnoses Recurrent umbilical hernia K42.9 06/01/18 1205 <Electronically signed by Jeronimo Becker MD> Date Jeronimo Becker MD Cosign Signature: Date (if applicable) CC: Gloria Hazel MD CBC W/DIFF, AUTOMATED Collected: 05/24/2018 Status: F Source: [place] 4:21 PM [facility] REPOSITORY TYPE CODE TESTS RESULT OUT OF RANGE REFERENCE UNITS LAB L100.1000 4.4-11.0 K/mm3 Normal WBC 8.4 LAB L100.1200 4.6-6.2 M/mm3 Low RBC 4.41 LAB L100.1300 13.0-16.5 g/dl Normal HGB 14.2 LAB L100.1400 40-54 % Normal HCT 43.8 LAB L100.1500 80-94 fL High MCV 99.3 LAB L100.1600 27.0-32.0 pg High MCH 32.2 LAB L100.1700 32-36 g/gl Normal MCHC 32.4 LAB L100.1810 11.6-14.6 % Normal RDW CV 14.1 LAB L100.1820 35.1-43.9 fl High RDW SD 51.0 LAB L100.1900 150-450 K/mm3 Normal PLT 221 LAB L100.2000 6.2-12.0 fl Normal MPV 10.1 LAB L100.2100 47-70 % High NEUT% 76.4 LAB L100.2200 19-41 % Low LY% 17.3 LAB L100.2300 0-10 % Normal MONO% 5.4 LAB L100.2400 0-5 % Normal EO% 0.6 LAB L100.2500 0-1 % Normal BASO% 0.2 LAB L100.2550 0.0-0.9 % Normal IM GRAN % 0.100 Result Comment: IG% - Immature Granulocytes (promyelocytes, myelocytes and metamyelocytes) > 1% indicates that a LEFT SHIFT is Present. LAB L100.2620 2.0-7.7 X10 3/uL Normal Absolute Neut 6.4 LAB L100.2720 0.83-4.51 X10 3/ul Normal Absolute Lymph 1.45 Performed By: #### L100.0100 #### [facility] [address] [place], [place], [address] COMPREHENSIVE METABOLIC Collected: 05/24/2018 Status: F Source: [facility] 4:21 PM [facility] REPOSITORY TYPE CODE TESTS RESULT OUT OF RANGE REFERENCE UNITS LAB L501.0100 74-106 mg/dL Normal GLU 92 Result Comment: Please note revised GLUCOSE reference range effective 2017. LAB L501.1000 7-18 mg/dL Normal BUN 11 LAB L501.1100 0.70-1.30 mg/dL Normal CREAT,SERUM 0.88 Result Comment: The validity of the calculated GFR AND GFRAA in patients over 70 years has not been determined. Clinical correlation is essential. LAB L501.1110 >60 mL/min Normal EST GFR 90 Result Comment: Non- GFR Calc LAB L501.1115 >60 mL/min Normal EST GFR - AA 108 Result Comment: GFR Calc LAB L501.1300 10-20 RATIO Normal BUN/CRE 12.5 LAB L501.1500 6.4-8.2 g/dL T Normal PROT 6.8 LAB L501.1800 3.2-5.0 g/dL Normal ALB 3.7 LAB L501.1950 2.2-4.2 g/dL Normal GLOB 3.1 LAB L501.2000 0.9-2.4 RATIO Normal A/G 1.2 LAB L501.2200 8.5-10.1 mg/dL CA Normal 8.9 LAB L501.4100 15-37 U/L Normal AST 23 LAB L501.4305 45-117 U/L Normal ALK P 54 LAB L501.4405 16-61 U/L Normal ALT 28 LAB L501.4600 0.20-1.00 mg/dL T Normal BILI 0.40 LAB L501.5300 136-145 mmol/L NA Normal 142 LAB L501.5600 3.5-5.1 mmol/L K Normal 4.2 LAB L501.5900 98-107 mmol/L CL Normal 104 LAB L501.6100 21.0-32.0 mmol/L Normal CO2 28.0 LAB L501.6200 5-15 Normal GAP 10 Performed By: #### L500.4050 #### [facility] [address] [place], [address] OPERATIVE REPORT Observed: 05/15/2018 Status: F Source: [place] 2:39 PM [facility] REPOSITORY [facility] Medical Records Department [address] [place] [address] Operative Report 05/15/18 1436 MR#: [id number] Acct: [id number] Name: BRYCE ANN Rep #: [id number] : 1940 77 From: Jeronimo Becker MD PCP: Gloria Hazel MD Status: REG [facility] Y Location: [place] [address] Problem List (1) Recurrent umbilical hernia Status: Acute Report of Operation Date of Procedure: 05/15/18 Pre-Operative Diagnosis: Recurrent umbilical hernia Post-Operative Diagnosis: Same Surgery/Procedure Performed:: Recurrent umbilical hernia repair Description of Surgical Findings:: Patient a very small reducible hernia. Type of Anesthesia:: Local MAC Description of Procedure: Patient was brought back to the operating room and MAC anesthesia was induced. The patient's abdomen was prepped and draped in the usual sterile fashion. An incision was marked above the umbilicus. This incision space was then injected with a mixture of lidocaine and Marcaine. Next an incision was made with scalpel and deepened to the subcutaneous tissue. The fascial defect was identified and cleared using electrocautery. The contents were reduced. Next the fascial defect was measured and measured less than 1 cm. It was closed with 2 [id number] 0 Prolene sutures. Next the space was irrigated and the umbilical skin was sutured to the fascia with a 3-0 Vicryl suture. Next the incision was closed with a running 4-0 Monocryl suture and Steri-Strips and a bandage. A cotton ball was placed in the umbilicus for dressing. Patient tolerated the procedure well and was brought to PACU in stable condition. - Admit VTE Documentation VTE Mechan Device Prophylaxis: SCD's 05/15/189 <Electronically signed by Jeronimo Becker MD> Date Jeronimo Becker MD CC: Gloria Hazel MD; Jeronimo Becker MD; Josse James MD Signed DISCHARGE INSTRUCTION Observed: 05/15/2018 Status: F Source: [place] 2:36 PM [facility] REPOSITORY [facility] Medical Records Department [address] [place] [address] Instructions for Home/Discharge Instructions 05/15/18 1434 MR#: [id number] Acct: [id number] Name: BRYCE ANN Rep #: [id number] : 1940 77 From: Jeronimo Becker MD PCP: Gloria Hazel MD Status: [facility] Discharge Diet: Light diet - advance as tolerated Discharge Activity: Return to Normal Activity, May Not Drive - for 2-3 days or while taking narcotic pain meds., May Shower - with the bandage in place 1-2 days after surgery. Lifting Restrictions: 20 pounds for 4 weeks. Additional Activity Instructions:: Climbing stairs is fine, walking is encouraged. Sitting in bed may be uncomfortable. Sitting up using your lateral muscles (sitting up sideways) is usually more comfortable. Do not drive, work heavy equipment of sign legal documents for 24 hours. Pain medications may cause nausea, you should typically eat light foods as you take your pain medications. Pain medications may also cause constipation. If you have difficulty with this, discuss with your doctor. Call your doctor if your incision/area has: Continuous Slow Oozing, Sudden Increased Bleeding, Increased Pain/ Swelling, Increased Redness, Foul Smelling Discharge Call your doctor if you observe: Fever of 101 or Higher Suture Line Care: Avoid Pulling/Pushing, Avoid Pinching/Bending Change Dressing in (Days):: 3 - Leave steri-strips for 1 week. May protect with a guaze bandaid. Cleanse incision/area with: Keep Dressing Clean AND Dry Additional Instructions: Resume aspirin Allergies/Adverse Reactions: Allergies No Known Allergies Allergy (Verified 05/08/18 11:48) Medications to take at Discharge Ascorbic Acid [Vitamin C] 500 mg PO DAILY 10/09/14 Calcium Carb/Vitamin D [Caltrate-600 With Vit D Tab] 1 tab PO DAILY@0800 10/09/14 Cyanocobalamin [Vitamin B12] 5,000 mcg PO DAILY@0800 10/09/14 Cyclobenzaprine [Flexeril] 10 mg PO DAILY 10/09/14 Folic Acid 1 mg PO DAILY@0800 10/09/14 Hydroxychloroquine [Plaquenil] 200 mg PO BIDCM 10/09/14 Methotrexate 20 mg PO Q7D 10/09/14 predniSONE tablet 10 mg PO DAILY 10/09/14 Aspirin [Aspirin, Baby] 81 mg PO DAILY@0800 08/19/16 Trazodone HCl 150 mg PO QHS 09/22/17 Methocarbamol [Robaxin] 1,500 mg PO DAILY PRN 03/13/18 Golimumab [Simponi Aria] IV X1 03/24/18 Oxycodone HCl/Acetaminophen [Percocet 5/325] 2 tab PO DAILY PRN 03/24/18 Multivitamins,Therapeutic [Multivitamin] 1 tablet PO DAILY 05/08/18 Oxycodone HCl/Acetaminophen [Percocet 5/325] 1 - 2 tablet PO Q4H PRN PRN 4 Days #20 tablet 05/15/18 The following prescriptions were given: Oxycodone HCl/Acetaminophen [Percocet 5/325] 1 - 2 tablet PO Q4H PRN PRN 4 Days #20 tablet PRN Reason: Pain Orders to be completed after discharge: 12 Lead EKG [CVS] Time Frame: 05/09/18, Location: None Selected Partial Thromboplast Time Time Frame: 05/09/18, Location: Laboratory Liver Profile Time Frame: 05/09/18, Location: Laboratory Prothrombin Time w/INR Time Frame: 05/09/18, Location: Laboratory Primary Care Physician: Gloria Hazel MD [Primary Care Provider] - Test Results: Test results from this visit will be discussed in further detail at your follow-up appointment, if applicable. Please Follow Up With: Jeronimo Becker MD When: Please call to schedule 2 week follow up appointment. [phone] 05/15/18 1431 <Electronically signed by Jeronimo Becker MD> Date Jeronimo Becker MD CC: Gloria Hazel MD; Josse James MD 12 LEAD ELECTROCARDIOGRAM Observed: 05/11/2018 Status: F Source: [place] 9:57 AM [facility] REPOSITORY [facility] Cardiovascular Services [address] [place] [address] 12 Lead EKG 05/09/18 1603 MR#: [id number] Acct: [id number] Name: BRYCE ANN Rep #: [id number] : 1940 77 From: Frank Siu MD Attending Dr: Jeronimo Becker MD Status: PRE SDC Ordering Dr: Jeronimo Becker MD Date: 05/09/18 Location: [facility] Sex: M C Admitted: Test Reason : PRE-OP Blood Pressure : / mmHG Vent. Rate : 086 BPM Atrial Rate : 086 BPM P-R Int : 168 ms QRS Dur : 082 ms QT Int : 380 ms P-R-T Axes : 059 -18 061 degrees QTc Int : 454 ms Normal sinus rhythm Inferior infarct , age undetermined Cannot rule out Anterior infarct , age undetermined Abnormal ECG Confirmed by SHERRON PERALES, FRANK ([id number]), features editor JOEL OBRIEN ([id number]) on 05/11/2018 9:56:41 AM Referred By: Jeronimo Becker Confirmed By:FRANK SIU MD 05/11/18 0956 Date Frank Siu MD CC: Gloria Hazel MD; Jeronimo Becker MD Signed LIVER PROFILE Collected: 05/09/2018 Status: F Source: [place] 3:37 PM [facility] REPOSITORY TYPE CODE TESTS RESULT OUT OF RANGE REFERENCE UNITS LAB L501.1500 6.4-8.2 g/dL Normal T PROT 6.6 LAB L501.1800 3.2-5.0 g/dL Normal ALB 3.6 LAB L501.1950 2.2-4.2 g/dL Normal GLOB 3.0 LAB L501.4100 15-37 U/L Normal AST 20 LAB L501.4305 45-117 U/L Normal ALK P 60 LAB L501.4405 16-61 U/L Normal ALT 32 LAB L501.4600 0.20-1.00 mg/dL Normal T BILI 0.50 LAB L501.4700 0.00-0.30 mg/dL Normal D BILI 0.12 Performed By: #### L500.3400 #### [facility] [address] [place], [address] CBC-COMPLETE BLOOD CNT Collected: 05/09/2018 Status: F Source: [place] NO DIFF 3:37 PM [facility] REPOSITORY TYPE CODE TESTS RESULT OUT OF RANGE REFERENCE UNITS LAB L100.1000 4.4-11.0 K/mm3 Normal WBC 6.2 LAB L100.1200 4.6-6.2 M/mm3 Low RBC 4.39 LAB L100.1300 13.0-16.5 g/dl Normal HGB 14.1 LAB L100.1400 40-54 % Normal HCT 43.7 LAB L100.1500 80-94 fL High MCV 99.5 LAB L100.1600 27.0-32.0 pg High MCH 32.1 LAB L100.1700 32-36 g/gl Normal MCHC 32.3 LAB L100.1810 11.6-14.6 % Normal RDW CV 14.5 LAB L100.1820 35.1-43.9 fl High RDW SD 52.9 LAB L100.1900 150-450 K/mm3 Normal PLT 213 LAB L100.2000 6.2-12.0 fl Normal MPV 9.7 Performed By: #### L100.0500 #### [facility] [address] [place], [place], [address] PROTHROMBIN TIME W/INR Collected: 05/09/2018 Status: F Source: [place] 3:37 PM [facility] REPOSITORY TYPE CODE TESTS RESULT OUT OF RANGE REFERENCE UNITS LAB L300.4150 11.7-14.9 SECONDS Normal PROTIME 12.9 LAB L300.4200 Normal INR 1.0 Performed By: #### L300.3900, L300.4310 #### [facility] [address] [place], [place], [address] PARTIAL THROMBOPLAST Collected: 05/09/2018 Status: F Source: [place] TIME 3:37 PM [facility] REPOSITORY TYPE CODE TESTS RESULT OUT OF RANGE REFERENCE UNITS LAB L300.4310 24.1-36.2 Seconds Normal PTT 29.6 Performed By: #### L300.3900, L300.4310 #### [facility] [address], [address] SURGERY VISIT REPORT Observed: 03/30/2018 Status: F Source: [place] 3:07 PM [facility] REPOSITORY [facility] [address] [place] [address] OFFICE VISIT Date of Service: 03/30/18 MR#: [id number] Acct: [id number] Name: BRYCE ANN Rep #: [id number] : 1940 Provider: Jeronimo Becker MD Age/Sex: 77/M Location: [facility] Status: Signed Intake Vital Signs03/30/18 Height 5 ft 2 in 03/30/18 Weight: 152 lb 03/30/18 Body Mass Index (BMI) 27.8 Intake Visit Reasons: Umbilical Hernia [facility] ER CT 03/24 Chief Complaint: SIMPONI Hacksaw Inspector Required: No Is patient in pain?: No Allergies No Known Allergies Allergy (Verified 03/30/18 14:55) Medications Ascorbic Acid [Vitamin C] 500 mg PO DAILY 10/09/14 [History Confirmed 03/30/18] Calcium Carb/Vitamin D [Caltrate-600 With Vit D Tab] 1 tab PO DAILY@0800 10/09/14 [History Confirmed 03/30/18] Cyanocobalamin [Vitamin B12] 5,000 mcg PO DAILY@0800 10/09/14 [History Confirmed 03/30/18] Cyclobenzaprine [Flexeril] 10 mg PO DAILY 10/09/14 [History Confirmed 03/30/18] Folic Acid 1 mg PO DAILY@0800 10/09/14 [History Confirmed 03/30/18] Hydroxychloroquine [Plaquenil] 200 mg PO BIDCM 10/09/14 [History Confirmed 03/30/18] Methotrexate 20 mg PO Q7D 10/09/14 [History Confirmed 03/30/18] predniSONE tablet 10 mg PO DAILY 10/09/14 [History Confirmed 03/30/18] Aspirin [Aspirin, Baby] 81 mg PO DAILY@0800 08/19/16 [History Confirmed 03/30/18] Multivit with Iron,Minerals [Cerovite Jr] 1 ea PO DAILY 08/19/16 [History Confirmed 03/30/18] Trazodone HCl 150 mg PO QHS 09/22/17 [History Confirmed 03/30/18] Methocarbamol [Robaxin] 1,500 mg PO DAILY PRN 03/13/18 [History Confirmed 03/30/18] Golimumab [Simponi Aria] 03/24/18 [History Confirmed 03/30/18] Oxycodone HCl/Acetaminophen [Percocet 5/325] 2 tab PO DAILY PRN 03/24/18 [History Confirmed 03/30/18] [facility] Medical History Rheumatoid arthritis (Acute) S/P vasectomy (Acute) Surgical History H/O umbilical hernia repair (Acute) S/P appendectomy (Acute) S/P cataract surgery (Acute) S/P hemorrhoidectomy (Acute) S/P inguinal hernia repair (Acute) S/P inguinal hernia repair (Acute) S/P laparoscopic cholecystectomy (Acute) S/P left colectomy (Acute) S/P rotator cuff repair (Acute) Social History Smoking Status: Former smoker alcohol intake: never HPI HPI HPI: BRYCE ANN, is a 77 M who presents to the office today for umbilical hernia. The patient reports that he has been having bulging for about a year at his umbilical site. He has had history of umbilical hernia repair in 1974 and does not call if any mesh was used. He is also complaining of constipation. ROS General General: No weight change or fatigue Musc Musculoskeletal: Yes rheumatoid arthritis and arthritis Cardio Cardiovascular: No murmur, pacemaker, heart disease, atrial fibrillation, high blood pressure, heart attack, heart stent, palpitations, shortness of breat with exertion or chest pain Psych Psychiatric: No depression or anxiety Resp Respiratory: No shortness of breath, No sleep apnea, No cough, No COPD, No asthma, No emphysema, No wheezing Gastro Gastrointestinal: No abdominal pain, No nausea or vomiting, No diarrhea, Yes constipation, No blood in stool, No acid reflux, No hemorrhoids, No ulcers, No gallbladder problem, No black,tarry stools Additional Details: Umbilical hernia with bulging Jakob Hematologic: Yes blood thinners Exam Const General: cooperative Orientation: alert, oriented x3 Resp Effort AND Inspection: normal respiratory effort Auscultation: clear to auscultation bilaterally Cardio Rate: regular rate Rhythm: regular rhythm Heart Sounds: no murmurs GI Inspection: non-distended Palpation: soft, nontender, hernia umbilical Other: The patient has multiple surgical scars on his abdomen. He has a reducible soft umbilical hernia. Assessment AND Plan Problems 1. Recurrent umbilical hernia K42.9 Plan 1. She has recurrent umbilical hernia. At this time the patient reports that it is growing and is bothersome. The patient's hernia is reducible. I explained that hernia defect itself is very small. Less than 1 cm. I explained that the easiest operation given his steroid status as well as his age would be a primary repair as this is less than 1 cm in size. I would not be placing any mesh. I explained the risks of infection/bleeding/bowel injury. I also explained the possibility of recurrence. The patient is willing to proceed with surgery. I explained that I would be performing this under MAC/local. Jeronimo Becker MD Pager: [facility] [address] [place] [address], [address] [place] [address] Office: Coding Level of Care Code Off vis,new,level 3 Diagnoses Recurrent umbilical hernia K42.9 03/30/18 1507 <Electronically signed by Jeronimo Becker MD> Date Jeronimo Becker MD Cosigner Signature: Date (if applicable) CC: Gloria Hazel MD EMERGENCY DEPARTMENT Observed: 03/24/2018 Status: F Source: RULO SUMMARY 4:15 PM [facility] REPOSITORY [facility] Medical Records Department [address] [place] [address] Emergency Department Summary 03/24/18 1329 MR#: [id number] Acct: [id number] Name: MARISSABRYCE B Rep #: [id number] : 1940 77 From: Tomi Casiano DO PCP: Gloria Hazel MD Status: DEP ER - ER Visit Summary Date of Service: 03/24/18 Chief Complaint: Abdominal pain History of Present Illness: The patient is a 77 M who states for the past several weeks he is believe he has had a abdominal hernia. He states the hernia is always gone back again but last night around 1800 hrs. he was eating a large meal and felt his hernia come out and it was painful for him. He was unable to get back in. He comes the emergency department today for evaluation. States he is felt rather constipated lately. He takes narcotic pain medicine for chronic pain. History of rheumatoid arthritis. He states that 30+ years ago he had an umbilical hernia repair. Physical Examination: Afebrile vital signs stable Gen: Well-nourished well-developed Head: Normocephalic atraumatic Eyes: Perrl EOMI ENT: TMs clear no rhinorrhea moist mucous membranes Neck: Supple no lymphadenopathy no JVD nontender CVS: Regular rate rhythm no murmurs normal S1-S2 Respiratory: No distress clear to auscultation bilaterally chest nontender Abdomen: Soft mild tender to palpation in the midline in the supraumbilical region. There is diastases of the abdominal musculature. There is a small hernia felt. Nondistended normal bowel sounds no masses Back: Nontender Extremity: Nontender no edema Skin: Normal color no rash Neuro: alert orientated 3 CN II-XII intact normal strength sensation reflexes gait cerebellar Psych: Normal affect normal mood Test Results: CT of the abdomen demonstrates a small fat filled supra umbilical hernia. Emergency Department Course and Treatment: There is no incarceration. No obvious bowel obstruction. Advised him to take stool softener and apple juice. He may follow-up with his primary care physician and local surgery assistant education director if he chooses. Advised to eat small meals and to stay hydrated. Impression: 1. Ventral hernia This note was generated with T[employer]ile dictation software. It may contain incorrect words, spelling, and punctuation that were not noted in review of the chart prior to signing ED Disposition - Plan for ED Patient: Disposition: Home or Assisted Living Chief Complaint: Abd Pain Instructions: What Is a Hernia? Referrals: Jeronimo Becker MD [STAFF PHYSICIAN] - (if you wish to follow up with a local surgeon ) Gloria Hazel MD [Primary Care Provider] - (call to arrange follow up appointment) What to do if you have Problems For any increased pain, shortness of breath, bleeding, nausea or vomiting, chest pain, or any unexpected problems, contact your Primary Care Provider. Call [facility] ([phone]) or report to the closest Emergency Room. Call 911 if necessary. 03/24/18 2809 <Electronically signed by Tomi Casiano DO> Date Tomi Casiano DO Cosigner Signature (If Indicated): Date CC: Gloria Hazel MD ABDOMEN/PELVIS WITHOUT Observed: 03/24/2018 Status: F Source: JERROD CONT 12:27 PM [facility] REPOSITORY [facility] Imaging Services [address] [place] [address] Abdomen/Pelvis without Cont MR#: [id number] Acct: [id number] Name: BRYCE ANN Rep #: [id number] : 1940 M 77 From: Aroldo Mcfadden MD PCP: Gloria Hazel MD Status: REG ER Study: Abdomen/Pelvis without Cont Date of Exam: 03/24/18 Exam# [id number] Ordering Dr: Tomi Casiano DO STUDY: CT ABDOMEN AND PELVIS WITHOUT CONTRAST REASON FOR EXAM: Male, 77 years old. Pain at umbilicus and rectal pain RADIATION DOSAGE (If Supplied By Facility): CTDIvol = ( 7.61 ) mGy, DLP = ( 334.67 ) mGycm TECHNIQUE: Transaxial images were obtained from the dome of the diaphragm to the symphysis pubis without oral contrast, and without intravenous contrast. Sagittal and coronal images were reconstructed. Individualized dose optimization techniques were used for this CT. COMPARISON: None. FINDINGS: The visualized lung bases are unremarkable. The visualized portions of the heart are within normal limits. Normal liver. There is non-visualization of the gallbladder, which may be secondary to either contraction or a prior cholecystectomy. Normal spleen. Normal pancreas. Normal bilateral adrenal glands. Normal right kidney. Normal left kidney. Normal visualized stomach. Normal small intestine. There are multiple colonic diverticula consistent with diverticulosis. There is non-visualization of the appendix. Normal abdominal aorta. Normal inferior vena cava. Normal retroperitoneum. Normal urinary bladder. There are prostatic calcifications. Fat-containing left inguinal hernia. Umbilical fat hernia. Small fat-containing hernia in the supraumbilical midline anterior abdominal wall. There are diffuse degenerative changes of the visualized lumbar spine. CT/Abdomen/Pelvis without Cont IMPRESSION: Umbilical fat hernia. Small fat-containing hernia in the supraumbilical midline anterior abdominal wall. Fat-containing left inguinal hernia. No bowel herniations are seen. No evidence of acute intestinal pathology or acute obstructive uropathy. Electronically Signed: Aroldo Mcfadden MD at 13:17 EDT Tel , Service support , CC: Gloria Hazel MD; Tomi Casiano DO Multi Operation Forming Machine Setter: Signed CBC W/DIFF, AUTOMATED Collected: 03/01/2018 Status: F Source: RULO 12:46 PM [facility] REPOSITORY TYPE CODE TESTS RESULT OUT OF RANGE REFERENCE UNITS LAB L100.1000 4.4-11.0 K/mm3 Normal WBC 8.9 LAB L100.1200 4.6-6.2 M/mm3 Low RBC 4.34 LAB L100.1300 13.0-16.5 g/dl Normal HGB 13.8 LAB L100.1400 40-54 % Normal HCT 42.6 LAB L100.1500 80-94 fL High MCV 98.2 LAB L100.1600 27.0-32.0 pg Normal MCH 31.8 LAB L100.1700 32-36 g/gl Normal MCHC 32.4 LAB L100.1810 11.6-14.6 % Normal RDW CV 14.1 LAB L100.1820 35.1-43.9 fl High RDW SD 51.2 LAB L100.1900 150-450 K/mm3 Normal PLT 194 LAB L100.2000 6.2-12.0 fl Normal MPV 10.0 LAB L100.2100 47-70 % High NEUT% 84.0 LAB L100.2200 19-41 % Low LY% 8.6 LAB L100.2300 0-10 % Normal MONO% 6.3 LAB L100.2400 0-5 % Normal EO% 0.8 LAB L100.2500 0-1 % Normal BASO% 0.2 LAB L100.2550 0.0-0.9 % Normal IM GRAN % 0.100 Result Comment: IG% - Immature Granulocytes (promyelocytes, myelocytes and metamyelocytes) > 1% indicates that a LEFT SHIFT is Present. LAB L100.2620 2.0-7.7 X10 3/uL Normal Absolute Neut 7.5 LAB L100.2720 0.83-4.51 X10 3/ul Low Absolute Lymph 0.77 Performed By: #### L100.0100 #### [facility] [address] [place], [place], [address] COMPREHENSIVE METABOLIC Collected: 03/01/2018 Status: F Source: [facility] 12:46 PM [facility] REPOSITORY TYPE CODE TESTS RESULT OUT OF RANGE REFERENCE UNITS LAB L501.0100 74-106 mg/dL Normal GLU 89 Result Comment: Please note revised GLUCOSE reference range effective 2017. LAB L501.1000 7-18 mg/dL Normal BUN 11 LAB L501.1100 0.70-1.30 mg/dL Normal CREAT,SERUM 0.90 Result Comment: The validity of the calculated GFR AND GFRAA in patients over 70 years has not been determined. Clinical correlation is essential. LAB L501.1110 >60 mL/min Normal EST GFR 88 Result Comment: Non- GFR Calc LAB L501.1115 >60 mL/min Normal EST GFR - AA 106 Result Comment: GFR Calc LAB L501.1300 10-20 RATIO Normal BUN/CRE 12.3 LAB L501.1500 6.4-8.2 g/dL T Normal PROT 6.7 LAB L501.1800 3.2-5.0 g/dL Normal ALB 3.6 LAB L501.1950 2.2-4.2 g/dL Normal GLOB 3.1 LAB L501.2000 0.9-2.4 RATIO Normal A/G 1.2 LAB L501.2200 8.5-10.1 mg/dL CA Normal 8.8 LAB L501.4100 15-37 U/L Normal AST 22 LAB L501.4305 45-117 U/L Normal ALK P 45 LAB L501.4405 16-61 U/L Normal ALT 29 LAB L501.4600 0.20-1.00 mg/dL T Normal BILI 0.40 LAB L501.5300 136-145 mmol/L NA Normal 138 LAB L501.5600 3.5-5.1 mmol/L K Normal 4.2 LAB L501.5900 98-107 mmol/L CL Normal 102 LAB L501.6100 21.0-32.0 mmol/L Normal CO2 27.0 LAB L501.6200 5-15 Normal GAP 9 Performed By: #### L500.4050 #### [facility] [address] [place], [address] PSA,TOTAL - ANNUAL Collected: 01/01/2018 Status: F Source: JERROD SCREEN 4:24 PM [facility] REPOSITORY TYPE CODE TESTS RESULT OUT OF RANGE REFERENCE UNITS LAB L501.9910 0.00-4.00 ng/mL Normal PSA,TOT 0.56 SCREEN Result Comment: This test was performed using the TPSA assay method for the [employer] chemistry system. Values obtained with different assay methods cannot be used interchangably. When changing PSA assays in the course of monitoring a patient, additional sequential testing should be carried out to confirm baseline values. Performed By: #### L501.9910 #### [facility] [address] [facility] [place], [address] COMPREHENSIVE METABOLIC Collected: 12/11/2017 Status: F Source: JERROD PROFIL 4:36 PM [facility] REPOSITORY TYPE CODE TESTS RESULT OUT OF RANGE REFERENCE UNITS LAB L501.0100 74-106 mg/dL Normal GLU 90 Result Comment: Please note revised GLUCOSE reference range effective 2017. LAB L501.1000 7-18 mg/dL Normal BUN 9 LAB L501.1100 0.70-1.30 mg/dL Normal CREAT,SERUM 0.94 Result Comment: The validity of the calculated GFR AND GFRAA in patients over 70 years has not been determined. Clinical correlation is essential. LAB L501.1110 >60 mL/min Normal EST GFR 83 Result Comment: Non- GFR Calc LAB L501.1115 >60 mL/min Normal EST GFR - AA 100 Result Comment: GFR Calc LAB L501.1300 10-20 RATIO Low BUN/CRE 9.5 LAB L501.1500 6.4-8.2 g/dL Normal T PROT 6.8 LAB L501.1800 3.2-5.0 g/dL Normal ALB 3.5 LAB L501.1950 2.2-4.2 g/dL Normal GLOB 3.3 LAB L501.2000 0.9-2.4 RATIO Normal A/G 1.1 LAB L501.2200 8.5-10.1 mg/dL Normal CA 8.6 LAB L501.4100 15-37 U/L Normal AST 26 Result Comment: Slight Hemolysis, Result may be falsely increased. LAB L501.4305 45-117 U/L Normal ALK P 47 LAB L501.4405 16-61 U/L Normal ALT 35 LAB L501.4600 0.20-1.00 mg/dL Normal T BILI 0.50 LAB L501.5300 136-145 mmol/L Normal NA 139 LAB L501.5600 3.5-5.1 mmol/L Normal K 4.5 Result Comment: Slight Hemolysis, Result may be falsely increased. LAB L501.5900 98-107 mmol/L Normal CL 104 LAB L501.6100 21.0-32.0 mmol/L Normal CO2 27.0 LAB L501.6200 5-15 Normal 8 GAP Performed By: #### L500.4050 #### [facility] [address] [place], [address] CBC W/DIFF, AUTOMATED Collected: 12/11/2017 Status: F Source: RULO 4:36 PM [facility] REPOSITORY TYPE CODE TESTS RESULT OUT OF RANGE REFERENCE UNITS LAB L100.1000 4.4-11.0 K/mm3 Normal WBC 7.4 LAB L100.1200 4.6-6.2 M/mm3 Low RBC 4.39 LAB L100.1300 13.0-16.5 g/dl Normal HGB 14.0 LAB L100.1400 40-54 % Normal HCT 42.2 LAB L100.1500 80-94 fL High MCV 96.1 LAB L100.1600 27.0-32.0 pg Normal MCH 31.9 LAB L100.1700 32-36 g/gl Normal MCHC 33.2 LAB L100.1810 11.6-14.6 % Normal RDW CV 14.6 LAB L100.1820 35.1-43.9 fl High RDW SD 49.3 LAB L100.1900 150-450 K/mm3 Normal PLT 221 LAB L100.2000 6.2-12.0 fl Normal MPV 10.1 LAB L100.2100 47-70 % High NEUT% 83.8 LAB L100.2200 19-41 % Low LY% 10.4 LAB L100.2300 0-10 % Normal MONO% 5.5 LAB L100.2400 0-5 % Normal EO% 0.1 LAB L100.2500 0-1 % Normal BASO% 0.1 LAB L100.2550 0.0-0.9 % Normal IM GRAN % 0.100 Result Comment: IG% - Immature Granulocytes (promyelocytes, myelocytes and metamyelocytes) > 1% indicates that a LEFT SHIFT is Present. LAB L100.2620 2.0-7.7 X10 3/uL Normal Absolute Neut 6.2 LAB L100.2720 0.83-4.51 X10 3/ul Low Absolute Lymph 0.77 Performed By: #### L100.0100 #### [facility] [address] [facility]. [place], [place], [id number] CBC W/DIFF, AUTOMATED Collected: 09/28/2017 Status: F Source: RULO 12:17 PM [facility] REPOSITORY TYPE CODE TESTS RESULT OUT OF RANGE REFERENCE UNITS LAB L100.1000 4.4-11.0 K/mm3 Normal WBC 6.6 LAB L100.1200 4.6-6.2 M/mm3 Low RBC 4.51 LAB L100.1300 13.0-16.5 g/dl Normal HGB 13.9 LAB L100.1400 40-54 % Normal HCT 42.8 LAB L100.1500 80-94 fL High MCV 94.9 LAB L100.1600 27.0-32.0 pg Normal MCH 30.8 LAB L100.1700 32-36 g/gl Normal MCHC 32.5 LAB L100.1810 11.6-14.6 % Normal RDW CV 14.3 LAB L100.1820 35.1-43.9 fl High RDW SD 49.0 LAB L100.1900 150-450 K/mm3 Normal PLT 200 LAB L100.2000 6.2-12.0 fl Normal MPV 9.8 LAB L100.2100 47-70 % High NEUT% 78.6 LAB L100.2200 19-41 % Low LY% 14.7 LAB L100.2300 0-10 % Normal MONO% 5.3 LAB L100.2400 0-5 % Normal EO% 1.1 LAB L100.2500 0-1 % Normal BASO% 0.3 LAB L100.2550 0.0-0.9 % Normal IM GRAN % 0.000 Result Comment: IG% - Immature Granulocytes (promyelocytes, myelocytes and metamyelocytes) > 1% indicates that a LEFT SHIFT is Present. LAB L100.2620 2.0-7.7 X10 3/uL Normal Absolute Neut 5.2 LAB L100.2720 0.83-4.51 X10 3/ul Normal Absolute Lymph 0.97 Performed By: #### L100.0100 #### [facility] [address] [place], [address] COMPREHENSIVE METABOLIC Collected: 09/28/2017 Status: F Source: [facility] 12:17 PM [facility] REPOSITORY TYPE CODE TESTS RESULT OUT OF RANGE REFERENCE UNITS LAB L501.0100 74-106 mg/dL Normal GLU 94 Result Comment: Please note revised GLUCOSE reference range effective 2017. LAB L501.1000 7-18 mg/dL Low BUN 6 LAB L501.1100 0.70-1.30 mg/dL Normal CREAT,SERUM 0.84 Result Comment: The validity of the calculated GFR AND GFRAA in patients over 70 years has not been determined. Clinical correlation is essential. LAB L501.1110 >60 mL/min Normal EST GFR 94 Result Comment: Non- GFR Calc LAB L501.1115 >60 mL/min Normal EST GFR - AA 114 Result Comment: GFR Calc LAB L501.1300 10-20 RATIO Low BUN/CRE 7.1 LAB L501.1500 6.4-8.2 g/dL Normal T PROT 6.8 LAB L501.1800 3.2-5.0 g/dL Normal ALB 3.6 LAB L501.1950 2.2-4.2 g/dL Normal GLOB 3.2 LAB L501.2000 0.9-2.4 RATIO Normal A/G 1.1 LAB L501.2200 8.5-10.1 mg/dL Normal CA 8.6 LAB L501.4100 15-37 U/L Normal AST 19 LAB L501.4305 45-117 U/L Normal ALK P 51 LAB L501.4405 16-61 U/L Normal ALT 29 LAB L501.4600 0.20-1.00 mg/dL Normal T BILI 0.40 LAB L501.5300 136-145 mmol/L Normal NA 138 LAB L501.5600 3.5-5.1 mmol/L Normal K 4.1 LAB L501.5900 98-107 mmol/L Normal CL 102 LAB L501.6100 21.0-32.0 mmol/L Normal CO2 28.0 LAB L501.6200 5-15 Normal GAP 8 Performed By: #### L500.4050 #### [facility] [address] [place], [address] PT D/C SUMMARY (1) Observed: 07/18/2017 Status: F Source: RULO 2:52 PM [facility] REPOSITORY [facility] Physical Therapy [facility] [address] [place] [address]. [address] [place], [place] [address] Fax REHABILITATION SERVICES DISCHARGE SUMMARY MR#: [id number] Acct: [id number] Name: BRYCE ANN Rep #: [id number] : 1940 76 From: Kyree Dominguez PT, Cert. T, OCS Referring Dr.: Gloria Hazel MD Status: REG RCR Insurance: [employer] MEDICARE PPO SELF PAY INSURANCE HP - PT D/C Summary It has been my pleasure to treat BRYCE ANN under orders from Gloria Hazel MD, for the diagnosis of LOW BACK PAIN for a total of 10 visit(s). Discharge Date: 07/14/17 Please see the following information for a summary of their discharge status. - Subjective Subjective: Pain is bad with sitting,in morning getting OOB ,walking. Also coughing . pain 10/10 in morning symmtrical lumbar to hams/buttucKl left side. Plan to see DR Pierre WEd. - Pain Bilateral Back Pain Intensity (Out of 10): 7 - Objective Objective/Function: POSTURE: foward posture ,reduce lordosis. PALPATION: tender L-S /erctor,priformis. GAIT: antalgic gait left side. MMT: hip flexion 3+/5,quads/hams 4-5/5. LUMBAR ROM: mod loss pain,extension severe loss pain right side - Goals Goal 1:: Independant with HEP. Goal 2:: Indeendant with posture with ADL'S. Goal 3:: Patient to decrease lumbar pain and buttucks symptoms by 50% to improve function with ADL'S Goal 4:: Patient improve lumbar ROM for function of recovery with less pain. Goal 5:: Patient be able to perform ADL'S ,job demands and housework tasks. - Plan Plan: recommend ortho consult and further diagnostics - D/C Information Discharge Comments: ortho consult and further diagnostics If there are questions or concerns regarding this patient's physical therapy, please feel free to call me at [phone]. Thank you for the referral of this patient. Sincerely, Kyree Dominguez, PT, <Electronically signed by Kyree Dominguez PT, Cert. MDT, OCS> 07/18/17 1450 CC: Gloria Hazel MD NEERAJ Signed CBC W/DIFF, AUTOMATED Collected: 07/10/2017 Status: F Source: RULO 3:10 PM [facility] REPOSITORY TYPE CODE TESTS RESULT OUT OF RANGE REFERENCE UNITS LAB L100.1000 4.4-11.0 K/mm3 Normal WBC 8.6 LAB L100.1200 4.6-6.2 M/mm3 Low RBC 4.58 LAB L100.1300 13.0-16.5 g/dl Normal HGB 14.9 LAB L100.1400 40-54 % Normal HCT 43.9 LAB L100.1500 80-94 fL High MCV 95.9 LAB L100.1600 27.0-32.0 pg High MCH 32.5 LAB L100.1700 32-36 g/gl Normal MCHC 33.9 LAB L100.1810 11.6-14.6 % Normal RDW CV 14.3 LAB L100.1820 35.1-43.9 fl High RDW SD 48.2 LAB L100.1900 150-450 K/mm3 Normal PLT 216 LAB L100.2000 6.2-12.0 fl Normal MPV 10.2 LAB L100.2100 47-70 % High NEUT% 87.6 LAB L100.2200 19-41 % Low LY% 8.2 LAB L100.2300 0-10 % Normal MONO% 3.7 LAB L100.2400 0-5 % Normal EO% 0.2 LAB L100.2500 0-1 % Normal BASO% 0.2 LAB L100.2550 0.0-0.9 % Normal IM GRAN % 0.100 Result Comment: IG% - Immature Granulocytes (promyelocytes, myelocytes and metamyelocytes) > 1% indicates that a LEFT SHIFT is Present. LAB L100.2620 2.0-7.7 X10 3/uL Normal Absolute Neut 7.5 LAB L100.2720 0.83-4.51 X10 3/ul Low Absolute Lymph 0.70 Performed By: #### L100.0100 #### [facility] [address] [place], [address] COMPREHENSIVE METABOLIC Collected: 07/10/2017 Status: F Source: [facility] 3:10 PM [facility] REPOSITORY TYPE CODE TESTS RESULT OUT OF RANGE REFERENCE UNITS LAB L501.0100 74-106 mg/dL High GLU 113 Result Comment: Fasting Glucose result from 100 to 125 mg/dL suggests IMPAIRED HOMEOSTASIS per A.D.A. criteria. Please note revised GLUCOSE reference range effective 2017. LAB L501.1000 7-18 mg/dL Normal BUN 10 LAB L501.1100 0.70-1.30 mg/dL Normal CREAT,SERUM 0.90 Result Comment: The validity of the calculated GFR AND GFRAA in patients over 70 years has not been determined. Clinical correlation is essential. LAB L501.1110 >60 mL/min Normal EST GFR 87 Result Comment: Non- GFR Calc LAB L501.1115 >60 mL/min Normal EST GFR - AA 106 Result Comment: GFR Calc LAB L501.1300 10-20 RATIO Normal BUN/CRE 11.1 LAB L501.1500 6.4-8.2 g/dL T Normal PROT 7.2 LAB L501.1800 3.2-5.0 g/dL Normal ALB 3.9 LAB L501.1950 2.2-4.2 g/dL Normal GLOB 3.3 LAB L501.2000 0.9-2.4 RATIO Normal A/G 1.2 LAB L501.2200 8.5-10.1 mg/dL CA Normal 9.0 LAB L501.4100 15-37 U/L Normal AST 22 LAB L501.4305 45-117 U/L Normal ALK P 52 LAB L501.4405 16-61 U/L Normal ALT 32 Result Comment: Please note revised ALT reference range effective 2017. LAB L501.4600 0.20-1.00 mg/dL Normal T BILI 0.60 LAB L501.5300 136-145 mmol/L Normal NA 140 LAB L501.5600 3.5-5.1 mmol/L Normal K 4.1 LAB L501.5900 98-107 mmol/L Normal CL 104 LAB L501.6100 21.0-32.0 mmol/L Normal CO2 27.0 LAB L501.6200 5-15 Normal GAP 9 Performed By: #### L500.4050 #### [facility] [address] [facility] [place], [address] PELVIS 1 OR 2 VIEWS Observed: 06/23/2017 Status: F Source: RULO 12:27 PM [facility] REPOSITORY [facility] Imaging Services [address] [place] [address] Pelvis 1 or 2 Views MR#: [id number] Acct: [id number] Name: MARISSABRYCE B Rep #: [id number] : 1940 M 76 From: Abdoulaye Gomez MD PCP: Gloria Hazel MD Status: REG CLI Study: Pelvis 1 or 2 Views Date of Exam: 06/23/17 Exam# [id number] Ordering Dr: Gloria Hazel MD STUDY: X-RAY - PELVIS REASON FOR EXAM: Male, 76 years old. Low back pain TECHNIQUE: One view of the pelvis was obtained. COMPARISON: None. FINDINGS: The sacroiliac and hip joints are normal. There are no acute fractures or dislocations. A few phleboliths are in the pelvis. RAD/Pelvis 1 or 2 Views IMPRESSION: No fractures. The sacroiliac and hip joints are well-maintained. Electronically Signed: Abdoulaye Gomez, at 8:23 EST Tel , Service support , CC: Gloria Hazel MD Multi Operation Forming Machine Setter: Signed ALLERGIES ALLERGIES DATE TYPE / CODE NAME / CODE REACTION SEVERITY SOURCE 05/30/2018 Drug No Known Unknown [facility] Allergy/4160 Allergies/F00 Hospital 39290(SNOMED [id number](RXNOR Repository CT) M) ENCOUNTERS ENCOUNTERS ADMIT/DISCHARGE ACCOUNT ADMITTING ENCOUNTER LOCATION SOURCE NUMBER CLASS 05/30/2018/ [id number] Ambulatory BMSBuilding:B [facility] [address] 5 [facility] Repository 05/24/2018 [id number] Ambulatory [facility] [address] [facility] ing:[facility] Repository 05/15/2018 [id number] Ambulatory BMSBuilding:B [place] 6 MS.[facility] Repository 05/15/2018/ [id number] Ambulatory [place] Jerrod 8 0 [facility] ing:SDC Repository 05/14/2018 [id number] Ambulatory [place] 6 [facility] ing:MEDOUTP Repository 05/09/2018 [id number] Ambulatory BMSBuilding:W [place] 2 [facility] Repository 03/30/2018/ [id number] Ambulatory BMSBuilding:B [place] 8 2 [facility] Repository 03/24/2018/ [id number] Emergency [place] Jerrod 8 5 [facility] ing:ED Repository 03/13/2018 [id number] Ambulatory [place] 7 [facility] ing:MEDOUTP Repository 03/01/2018 [id number] Ambulatory [place] Jerrod 7 [facility] Hospital ing:MTLAB Repository 01/17/2018 [id number] Ambulatory [place] 2 [facility] ing:MEDOUTP Repository 01/01/2018 [id number] Ambulatory [place] 1 [facility] Hospital ing:LAB Repository 12/11/2017 [id number] Ambulatory [place] 1 [facility] Hospital ing:MTLAB Repository 11/17/2017 [id number] Ambulatory [place] 4 [facility] ing:MEDOUTP Repository 09/28/2017 [id number] Ambulatory [place] 3 [facility] Hospital ing:MTLAB Repository 09/22/2017 [id number] Ambulatory [place] 1 [facility] ing:MEDOUTP Repository 07/28/2017 [id number] Ambulatory [place] 9 [facility] Hospital ing:MEDOUTP Repository 07/11/2017/ [id number] Ambulatory [place] 8 0 [facility] ing:PT Repository 07/10/2017 [id number] Ambulatory [place] 7 [facility] Hospital ing:MTLAB Repository 06/23/2017 [id number] Ambulatory [place] 2 [facility] ing:MTRAD Repository PAYERS PAYERS ENCOUNTER GUARANTOR PAYER SUBSCRIBER SOURCE 05/30/2018 BRYCE Huber Primary BRYCE B [place] [id number] BRANDI Insurance:ZOYA MORRELLB[facility] [place] [facility] [place] [id number] Hospital [address]Wev: [phone] ADVANTAPolicy Number: Repository [phone] HP) [id number] Date:[id number] [address]QC: 05/30/2018 Secondary NOT GIVENUNK [place] Insurance:SELF PAY [facility] Number: Effective Repository Date:2018-05-30 05/24/2018 BRYCE Huber Primary BRYCE B [place] [id number] BRANDI Insurance:JAMES MORRELLB: [place] PPOPolicy [id number] Hospital [address]Mfj: [phone] Number: Repository [phone] () [id number] Date:2333-41-80GO [address] [place] [address]IU: 05/24/2018 Secondary NOT GIVENUNK [place] Insurance:SELF PAY [facility] Number: Effective Repository Date:2018-05-24 05/15/2018 BRYCE B Primary BRYCE B [place] [id number] BRANDI Insurance:HUMANA CONRADDOB: [place] PPOPolicy [id number] Hospital [address]Gho: [phone]) Number: Repository [phone] () [id number] Date:0230-32-44YA [address] [address]IR: 05/15/2018 Secondary NOT GIVENUNK [place] Insurance:SELF PAY [facility] Number: Effective Repository Date:2018-05-15 05/15/2018 BRYCE B Primary BRYCE B [place] [id number] [place] Insurance:HUMANA CONRADDOB: [place] PPOPolicy [id number] Hospital [address]Rdn: [phone]) Number: Repository [phone] () [id number] Date:1270-43-80HM [address] [address]HV: 05/15/2018 Secondary NOT GIVENUNK [place] Insurance:SELF PAY [facility] Number: Effective Repository Date:2018-04-04 05/14/2018 BRYCE B Primary BRYCE B [place] [id number] BRANDI Insurance:HUMANA CONRADDOB: [place] PPOPolicy [id number] Hospital [address]Qpx: [phone]) Number: Repository [phone] () [id number] Date:9062-38-90LW [address] [address]LQ: 05/14/2018 Secondary NOT GIVENUNK [place] Insurance:SELF PAY [facility] Number: Effective Repository Date:2018-03-13 05/09/2018 BRYCE B Primary BRYCE B [place] [id number] BRAND[place] Insurance:HUMANA CONRADDOB: [place] MEDICARE [facility] [id number] Hospital [address]Iqv: [phone]) Number: Repository [phone] () [id number] Date:3748-69-58OS [place] [address]WP: 05/09/2018 Secondary NOT GIVENUNK [place] Insurance:SELF PAY [facility] Number: Effective Repository Date:2018-05-09 03/30/2018 BRYCE B Primary BRYCE B [place] [id number] BRANDI Insurance:HUMANA CONRADDOB[facility] [place] PPOPolicy [id number] Hospital [address]Qoz: [phone]) Number: Repository [phone] () [id number] Date:6101-01-35FB [address]46[address]WP: 03/30/2018 Secondary NOT GIVENUNK [place] Insurance:SELF PAY [facility] Number: Effective Repository Date:2018-03-27 03/24/2018 BRYCE B Primary BRYCE B [place] [id number] BRANDI Insurance:HUMANA CONRADDOB: [place] PPOPolicy [id number] Hospital [address]Euc: [phone]) Number: Repository [phone] () [id number] Date:1069-51-55OS [place] [address]WP: 03/24/2018 Secondary NOT GIVENUNK [place] Insurance:SELF PAY [facility] Number: Effective Repository Date:2018-03-24 03/13/2018 BRYCE B Primary BRYCE B [place] [id number] BRAND[place] Insurance:HUMANA CONRADDOB: [place] PPOPolicy [id number] Hospital [address]Ops: [phone]) Number: Repository [phone] () [id number] Date:1495-21-00[place] [address]WP: 03/13/2018 Secondary NOT GIVENUNK [place] Insurance:SELF PAY [facility] Number: Effective Repository Date:2018-01-17 03/01/2018 BRYCE B Primary BRYCE B [place] [id number] BRANDI Insurance:HUMANA CONRADDOB: [place] OPolic [id number] Hospital [address]Tgd: ([phone]) Number: Repository [phone] () [id number] Date:0574-14-42NU [address]46[address]WP: 03/01/2018 Secondary NOT GIVENUNK [place] Insurance:SELF PAY [facility] Number: Effective Repository Date:2018-03-01 01/17/2018 BRYCE B Primary BRYCE B [place] [id number] BR[place] Insurance:HUMANA CONRADDOB: [place] [facility] [id number] Hospital [address]Glo: [phone]) Number: Repository [phone] () [id number] Date:2179-95-79LZ [address]46[address]WP: 01/17/2018 Secondary NOT GIVENUNK [place] Insurance:SELF PAY [facility] Number: Effective Repository Date:2017-11-17 01/01/2018 Bryce B Primary Bryce B [place] [id number] Brand[place] Insurance:HUMANA ConradDOB: [place] [facility] [id number] Hospital [address]Fjb: ([phone]) Number: Repository [phone] () [id number] Date:0676-76-62YU [address] [address]UL: 01/01/2018 Secondary NOT GIVENUNK [place] Insurance:SELF PAY [facility] Number: Effective Repository Date:2018-01-01 12/11/2017 Bryce B Primary Bryce B [place] [id number] Brandi Insurance:HUMANA ConradDOB[facility] [facility] [id number] Hospital [address]Ohs: [phone]) Number: Repository [phone] () [id number] Date:8805-71-61HW [place] [address]WP: 12/11/2017 Secondary NOT GIVENUNK [place] Insurance:SELF PAY [facility] Number: Effective Repository Date:2017-12-11 11/17/2017 Bryce B Primary Bryce B [place] [id number] [place] Insurance:HUMANA ConradDOB: [place] PPOPolicy [id number] [id number]: [phone]) Number: Repository [phone] () [id number] Date:6692-29-03PY [place] [address]WP: 11/17/2017 Secondary NOT GIVENUNK [place] Insurance:SELF PAY [facility] Number: Effective Repository Date:2017-09-22 09/28/2017 Bryce B Primary Bryce B [place] [id number] Brandi Insurance:HUMANA ConradDOB: [facility] [place] [facility] [id number] [id number]: [phone]) Number: Repository [phone] () [id number] Date:1418-89-32YD [place] [address]WP: 09/28/2017 Secondary NOT GIVENUNK [place] Insurance:SELF PAY [facility] Number: Effective Repository Date:2017-09-28 09/22/2017 Bryce B Primary Bryce B [place] [id number] [place] Insurance:HUMANA ConradDOB: [facility] [place] [facility] [id number] Hospital [address]Fbz: (330) Number: Repository [phone] () [id number] Date:7817-68-42HT [address] [address]BG: 09/22/2017 Secondary NOT GIVENUNK [place] Insurance:SELF PAY [facility] Number: Effective Repository Date:2017-07-28 07/28/2017 Bryce B Primary Bryce B [place] [id number] Brand[place] Insurance:HUMANA ConradDOB: [place] PPOPolicy [id number] Hospital [address]Taf: (330) Number: Repository [phone] () [id number] Date:9550-82-41RJ[address] [address]MI: 07/28/2017 Secondary NOT GIVENUNK [place] Insurance:SELF PAY [facility] Number: Effective Repository Date:2017-06-02 07/11/2017 Bryce B Primary Bryce B [place] [id number] Brandi Insurance:HUMANA ConradDOB: [place] PPOPolicy [id number] [place] [id number]: [phone]) Number: Repository [phone] () [id number] Date:9429-18[place]46[place] [address]WP: 07/11/2017 Secondary NOT GIVENUNK [place] Insurance:SELF PAY [facility] Number: Effective Repository Date:2017-05-15 07/10/2017 Bryce B Primary Bryce B [place] [id number] Brandi Insurance:HUMANA ConradD[facility] [place] PPOPolicy [id number] [id number]: [phone]) Number: Repository [phone] () [id number] Date:6049-04-18LV [address] [address]PA: 07/10/2017 Secondary NOT GIVENUNK [place] Insurance:SELF PAY [facility] Number: Effective Repository Date:2017-07-10 06/23/2017 Bryce B Primary Bryce B [place] [id number] [place] Insurance:HUMANA ConradDOB: [place] PPOPoly [id number] Hospital [address]Jsk: (330) Number: Repository [phone] () [id number] Date:7178-59-81[address], [place] [address]MO: 06/23/2017 Secondary NOT GIVENUNK [place] Insurance:SELF PAY [facility] Number: Effective Repository Date:2017-06-23
== END ==
LOC: MEDOUTP 11:02
PROVIDERS: Family Provider Family Medicine; PCP Family Medicine; Referring Provider Internal Medicine Rheumatology; Visit Provider Internal Medicine Rheumatology
DX: M05.79 Rheumatoid arthritis with rheumatoid factor of multiple sites without organ or systems involvement (principal)
CPT/HCPCS: 96365; J7050; A4216; J1602

== ENCOUNTER 2018-05-15 10:11 | Day surgery (SDC) | payer MEDICARE, SELFPAY ==
--- NOTE | 2018-05-09 15:52 | EKG12_ITS ---
Test Reason : PRE-OP Blood Pressure : / mmHG Vent. Rate : 086 BPM Atrial Rate : 086 BPM P-R Int : 168 ms QRS Dur : 082 ms QT Int : 380 ms P-R-T Axes : 059 -18 061 degrees QTc Int : 454 ms Normal sinus rhythm Inferior infarct , age undetermined Cannot rule out Anterior infarct , age undetermined Abnormal ECG Confirmed by AMOR PERALES, PER ([id number]), editorial intern JEOL OBRIEN ([id number]) on 05/11/2018 9:56:41 AM Referred By: Jeronimo Becker Confirmed By:PER CHINCHILLA MD
[2018-05-09 16:43] LABS: Hematocrit 43.7 % (40-54); Hemoglobin 14.1 g/dl (13.0-16.5); Mean Corp Hgb Conc 32.3 g/gl (32-36); Mean Corpuscular Hgb 32.1 pg (27.0-32.0); Mean Corpuscular Volume 99.5 fL (80-94); Mean Platelet Vol. 9.7 fl (6.2-12.0); Platelet Count 213 K/mm3 (150-450); RBC Distribution Width CV 14.5 % (11.6-14.6); RBC Distribution Width SD 52.9 fl (35.1-43.9); Red Blood Count 4.39 M/mm3 (4.6-6.2); White Blood Count 6.2 K/mm3 (4.4-11.0)
[2018-05-09 16:59] LABS: Prothrombin Time (Protime)PT. 12.9 SECONDS (11.7-14.9)
[2018-05-09 17:00] LABS: Partial Thromboplast Time 29.6 Seconds (24.1-36.2)
[2018-05-09 17:09] LABS: AST(SGOT) 20 U/L (15-37); Alanine Aminotransfer ALT/SGPT 32 U/L (16-61); Albumin, Serum 3.6 g/dL (3.2-5.0); Alkaline Phosphatase 60 U/L (45-117); Bilirubin, Direct 0.12 mg/dL (0.00-0.30); Protein, Total 6.6 g/dL (6.4-8.2)
[2018-05-09 17:11] LABS: Scan Indicated on CBC? Y/N NO
[2018-05-14 11:24] VITALS: BMI 28.0
[2018-05-15] MEDS: Bupivacaine Mpf 0.5% 30 ML VIAL (12:58)
[2018-05-15 13:10] VITALS: BP 132/79; PULSE 83; RESP 16; TEMP 37.1; O2SAT 95
[2018-05-15 13:15] VITALS: BP 132/70; PULSE 80; RESP 16; O2SAT 96
[2018-05-15 13:20] VITALS: BP 139/76; PULSE 77; RESP 16; O2SAT 96
[2018-05-15 13:25] VITALS: BP 132/79; BP 148/81; PULSE 80; RESP 16; TEMP 36.8; O2SAT 96
--- NOTE | 2018-05-15 14:36 | DCINST_ITS ---
Discharge Diet: Light diet - advance as tolerated Discharge Activity: Return to Normal Activity, May Not Drive - for 2-3 days or while taking narcotic pain meds., May Shower - with the bandage in place 1-2 days after surgery. Lifting Restrictions: 20 pounds for 4 weeks. Additional Activity Instructions:: Climbing stairs is fine, walking is encouraged. Sitting in bed may be uncomfortable. Sitting up using your lateral muscles (sitting up sideways) is usually more comfortable. Do not drive, work heavy equipment of sign legal documents for 24 hours. Pain medications may cause nausea, you should typically eat light foods as you take your pain medications. Pain medications may also cause constipation. If you have difficulty with this, discuss with your doctor. Call your doctor if your incision/area has: Continuous Slow Oozing, Sudden Increased Bleeding, Increased Pain/ Swelling, Increased Redness, Foul Smelling Discharge Call your doctor if you observe: Fever of 101 or Higher Suture Line Care: Avoid Pulling/Pushing, Avoid Pinching/Bending Change Dressing in (Days):: 3 - Leave steri-strips for 1 week. May protect with a guaze bandaid. Cleanse incision/area with: Keep Dressing Clean & Dry Additional Instructions: Resume aspirin Allergies/Adverse Reactions: Allergies No Known Allergies Allergy (Verified 05/08/18 11:48) Medications to take at Discharge Ascorbic Acid [Vitamin C] 500 mg PO DAILY 10/09/14 Calcium Carb/Vitamin D [Caltrate-600 With Vit D Tab] 1 tab PO DAILY@79910/09/14 Cyanocobalamin [Vitamin B12] 5,000 mcg PO DAILY@79910/09/14 Cyclobenzaprine [Flexeril] 10 mg PO DAILY 10/09/14 Folic Acid 1 mg PO DAILY@79910/09/14 Hydroxychloroquine [Plaquenil] 200 mg PO BIDCM 10/09/14 Methotrexate 20 mg PO Q7D 10/09/14 predniSONE tablet 10 mg PO DAILY 10/09/14 Aspirin [Aspirin, Baby] 81 mg PO DAILY@0800 08/19/16 Trazodone HCl 150 mg PO QHS 09/22/17 Methocarbamol [Robaxin] 1,500 mg PO DAILY PRN 03/13/18 Golimumab [Simponi Aria] IV X1 03/24/18 Oxycodone HCl/Acetaminophen [Percocet 5/325] 2 tab PO DAILY PRN 03/24/18 Multivitamins,Therapeutic [Multivitamin] 1 tablet PO DAILY 05/08/18 Oxycodone HCl/Acetaminophen [Percocet 5/325] 1 - 2 tablet PO Q4H PRN PRN 4 Days #20 tablet 05/15/18 The following prescriptions were given: Oxycodone HCl/Acetaminophen [Percocet 5/325] 1 - 2 tablet PO Q4H PRN PRN 4 Days #20 tablet PRN Reason: Pain Orders to be completed after discharge: 12 Lead EKG [[facility]] Time Frame: 05/09/18, Location: None Selected Partial Thromboplast Time Time Frame: 05/09/18, Location: Laboratory Liver Profile Time Frame: 05/09/18, Location: Laboratory Prothrombin Time w/INR Time Frame: 05/09/18, Location: Laboratory Primary Care Physician: Gloria Hazel MD [Primary Care Provider] - Test Results: Test results from this visit will be discussed in further detail at your follow- up appointment, if applicable. Please Follow Up With: Jeronimo Becker MD When: Please call to schedule 2 week follow up appointment. [phone]
--- NOTE | 2018-05-15 14:36 | PCM.OPRPT ---
Problem List (1) Recurrent umbilical hernia Status: Acute Report of Operation Date of Procedure: 05/15/18 Pre-Operative Diagnosis: Recurrent umbilical hernia Post-Operative Diagnosis: Same Surgery/Procedure Performed:: Recurrent umbilical hernia repair Description of Surgical Findings:: Patient a very small reducible hernia. Type of Anesthesia:: Local MAC Description of Procedure: Patient was brought back to the operating room and MAC anesthesia was induced. The patient's abdomen was prepped and draped in the usual sterile fashion. An incision was marked above the umbilicus. This incision space was then injected with a mixture of lidocaine and Marcaine. Next an incision was made with scalpel and deepened to the subcutaneous tissue. The fascial defect was identified and cleared using electrocautery. The contents were reduced. Next the fascial defect was measured and measured less than 1 cm. It was closed with 2 [id number] 0 Prolene sutures. Next the space was irrigated and the umbilical skin was sutured to the fascia with a 3-0 Vicryl suture. Next the incision was closed with a running 4-0 Monocryl suture and Steri-Strips and a bandage. A cotton ball was placed in the umbilicus for dressing. Patient tolerated the procedure well and was brought to PACU in stable condition. - Admit VTE Documentation VTE Mechan Device Prophylaxis: SCD's
[2018-05-15 15:25] VITALS: BP 132/79; BP 142/83; PULSE 70; RESP 16; TEMP 37.2; O2SAT 99
--- OUTSIDE RECORDS SUMMARY | 2018-08-16 17:33 | XMS RPT_ITS ---
:1940 Author Organization [place] Support Name Relationship Address Phone COW Unavailable [address] + [place] [address] RONI NELSON Unavailable [address] + [place] [address] COW Unavailable [address] + [place] [address] RONI NELSON Unavailable [address] + [place] [address] COW Unavailable [address] + [place] [address] RONI NELSON Unavailable [address] + [place] [address] COW Unavailable [address] + [place] [address] RONI NELSON Unavailable [address] + [place] [address] COW Unavailable [address] + [place] [address] RONI NELSON Unavailable [address] + [place] [address] COW Unavailable [address] + [place] [address] RONI NELSON Unavailable [address] + [place] [address] OFELIA ANN Unavailable [address] + [place] [address] COW Unavailable [address] + [place] [address] RONI NELSON Unavailable [address] + [place] [address] OFELIA ANN Unavailable [address] + [place] [address] COW Unavailable [address] + [place] [address] RONI NELSON Unavailable [address] + [place] [address] OFELIA ANN Unavailable [address] + [place] [address] COW Unavailable [address] + [place] [address] RONI NELSON Unavailable [address] + [place] [address] OFELIA ANN Unavailable [address] + [place] [address] COW Unavailable [address] + [place], [place] [address]RONI WELLINGTON Unavailable [address] + [place] [address] OFELIA ANN Unavailable [address] + [place] [address] + [place] [address] RONI NELSON Unavailable [address] + [place] [address] OFELIA ANN Unavailable [address] + [place] [address] Un[address] + [place], [place] [address]RONI KRISHNAMURTHY Unavailable [address] + [place] [address] OFELIA ANN Unavailable [address] + [place] [address] + [place], [place] [address]RONI KRISHNAMURTHY Unavailable [address] + [place] [address] OFELIA ANN Unavailable [address] + [place] [address] + [place], [place] [address]RONI WELLINGTON Unavailable [address] + [place] [address] OFELIA ANN Unavailable [address] + [place] [address] + [place] [address] RONI NELSON Unavailable [address] + [place] [address] OFELIA ANN Unavailable [address] + [place] [address] + [place] [address] RONI NELSON Unavailable [address] + [place] [address] OFELIA ANN Unavailable [address] + [place] [address] + [place] [address] RONI NELSON Unavailable [address] + [place] [address] OFELIA ANN Unavailable [address] + [place] [address] + [place] [address] RONI NELSON Unavailable [address] + [place] [address] OFELIA ANN Unavailable [address] + [place] [address] + [place] [address] RONI NELSON Unavailable [address] + [place] [address] OFELIA ANN Unavailable [address] + [place] [address] + [place] [address] RONI NELSON Unavailable [address] + [place] [address] Care Team Providers Name Role Phone Dayana [...] Personal Rosita, Active [place] history of other [facility] diseases of the Hospital digestive system / Repository Z87.19(ICD-10) 05/15/2018 Unknown Z98.890 - Other Rosita, Active [place] specified [facility] / Z98.890(ICD-10) Repository 05/21/2018 Unknown R94.31 - Abnormal Sherron, Whiteface Active [place] electrocardiogram Community [ECG] [EKG] / Hospital R94.31(ICD-10) Repository 03/30/2018 Unknown K42.9 - Umbilical Calabretta, Active [place] hernia without [facility] obstruction or Hospital gangrene / Repository K42.9(ICD-10) 03/01/2018 Unknown Z79.899 - Other long Pardeeplanki, Active [place] term (current) drug 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 G47.00(ICD-10) Hospital Repository 03/01/2018 Unknown M21.40 - Flat foot Erinn, Active [place] [pes planus] [facility] (acquired), Hospital unspecified foot / Repository M21.40(ICD-10) 03/01/2018 Unknown M47.897 - Other Vellanki, Active [place] spondylosis, [facility] lumbosacral region / Hospital M47.897(ICD-10) Repository 03/01/2018 Unknown I87.2 - Venous Vellanming, Active [place] insufficiency [facility] (chronic) (peripheral) Hospital / I87.2(ICD-10) Repository 03/01/2018 Unknown M05.70 - Rheumatoid Vellanki, Active [place] arthritis with [facility] rheumatoid factor of Hospital unspecified site Repository without organ or systems involvement / M05.70(ICD-10) 03/01/2018 Unknown N40.1 - Benign Vellanki, Active [place] prostatic hyperplasia [facility] with lower urinary Hospital tract symptoms / Repository N40.1(ICD-10) 07/19/2017 Unknown M54.5 - Low back pain Gloria Hazel Active [place] / M54.5(ICD-10) On License Of [facility] Hospital Repository 07/10/2017 Unknown M05.79 - Rheumatoid [place], Active [place] arthritis with [facility] rheumatoid factor of Hospital multiple sites without Repository organ or systems involvement / M05.79(ICD-10) PROCEDURES PROCEDURES No Procedure Records FoundRESULTS RESULTS SURGERY VISIT REPORT Observed: 06/01/2018 Status: F Source: [place] 12:05 PM [facility] REPOSITORY [facility] 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 Is patient in pain?: No [...] Follow-up as needed Jeronimo Becker MD Pager: [facility] [address] [place] [address], [address] [place] [address] Office: Coding Level of Care Code Global Post Op Diagnoses Recurrent umbilical hernia K42.9 06/01/18 1205 <Electronically signed by Jeronimo Becker MD> Date Jeronimo Becker MD Cosign Signature: Date (if applicable) CC: Gloria Hazel MD CBC W/DIFF, AUTOMATED Collected: 05/24/2018 Status: F Source: [place] 4:21 PM [facility] REPOSITORY TYPE CODE TESTS RESULT OUT OF [...] Lymph 1.45 Performed By: #### L100.0100 #### [facility] [address] [place], [place], [address] COMPREHENSIVE METABOLIC Collected: 05/24/2018 Status: F Source: [facility] 4:21 PM [facility] REPOSITORY TYPE CODE TESTS RESULT OUT OF [...] GAP 10 Performed By: #### L500.4050 #### [facility] [address] [facility] [place], [address] OPERATIVE REPORT Observed: 05/15/2018 Status: F Source: [place] 2:39 PM [facility] REPOSITORY [facility] Medical Records Department [address] [place] [address] Operative Report 05/15/18 1436 MR#: [id number] Acct: [id number] Name: BRYCE ANN Rep #: [id number] : 1940 77 From: Jeronimo Becker MD PCP: Gloria Hazel MD Status: REG [facility] Y Location: [place] [address] Problem List (1) Recurrent umbilical hernia Status: [...] 1 cm. It was closed with 2 [id number] 0 Prolene sutures. Next the space was [...] DISCHARGE INSTRUCTION Observed: 05/15/2018 Status: F Source: [place] 2:36 PM [facility] REPOSITORY [facility] Medical Records Department [address] [place] [address] Instructions for Home/Discharge Instructions 05/15/18 1434 MR#: [id number] Acct: [id number] Name: BRYCE ANN Rep #: [id number] : 1940 77 From: Jeronimo Becker MD PCP: Gloria Hazel MD Status: REG [facility] Discharge Diet: Light diet - advance as [...] to schedule 2 week follow up appointment. [phone] 05/15/18 1438 <Electronically signed by Jeronimo Becker MD> Date Jeronimo Becker MD CC: Gloria Hazel MD; Josse James MD 12 LEAD ELECTROCARDIOGRAM Observed: 05/11/2018 Status: F Source: [place] 9:57 AM [facility] REPOSITORY [facility] Cardiovascular Services [address] [place] [address] 12 Lead EKG 05/09/18 1603 MR#: [id number] Acct: [id number] Name: BRYCE ANN Rep #: [id number] : 1940 77 From: Frank Siu MD Attending Dr: Jeronimo Becker MD Status: PRE SDC Ordering Dr: Jeronimo Becker MD Date: 05/09/18 Location: [facility] Sex: M C Admitted: Test Reason : [...] ECG Confirmed by SHERRON PERALES, FRANK ([id number]), online content editor JOEL OBRIEN ([id number]) on 05/11/2018 9:56:41 AM Referred By: Jeronimo Becker Confirmed By:FRANK SIU MD 05/11/18 0956 Date Frank Siu MD CC: Gloria Hazel MD; Jeronimo Becker MD Signed LIVER PROFILE Collected: 05/09/2018 Status: F Source: [place] 3:37 PM [facility] REPOSITORY TYPE CODE TESTS RESULT OUT OF [...] BILI 0.12 Performed By: #### L500.3400 #### [facility] [address] [place], [address] CBC-COMPLETE BLOOD CNT Collected: 05/09/2018 Status: F Source: [place] NO DIFF 3:37 PM [facility] REPOSITORY TYPE CODE TESTS RESULT OUT OF [...] MPV 9.7 Performed By: #### L100.0500 #### [facility] [address] [place], [place], [address] PROTHROMBIN TIME W/INR Collected: 05/09/2018 Status: F Source: [place] 3:37 PM [facility] REPOSITORY TYPE CODE TESTS RESULT OUT OF RANGE REFERENCE UNITS LAB L300.4150 11.7-14.9 SECONDS Normal PROTIME 12.9 LAB L300.4200 Normal INR 1.0 Performed By: #### L300.3900, L300.4310 #### [facility] [address] [place], [place], [address] PARTIAL THROMBOPLAST Collected: 05/09/2018 Status: F Source: [place] TIME 3:37 PM [facility] REPOSITORY TYPE CODE TESTS RESULT OUT OF RANGE REFERENCE UNITS LAB L300.4310 24.1-36.2 Seconds Normal PTT 29.6 Performed By: #### L300.3900, L300.4310 #### [facility] [address] [place], [address] SURGERY VISIT REPORT Observed: 03/30/2018 Status: F Source: [place] 3:07 PM [facility] REPOS[facility]ORY [place] [facility] 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 Jeronimo Becker MD Pager: [facility] [address] [place] [address], [address] [place] [address] Office: Coding Level of Care Code Off vis,new,level 3 Diagnoses Recurrent umbilical hernia K42.9 03/30/18 1507 <Electronically signed by Jeronimo Becker MD> Date Jeronimo Becker MD Cosigner Signature: Date (if applicable) CC: Gloria Hazel MD EMERGENCY DEPARTMENT Observed: 03/24/2018 Status: F Source: [place] SUMMARY 4:15 PM [facility] REPOSITORY [facility] Medical Records Department [address] [place] [address] Emergency Department Summary 03/24/18 1329 MR#: [id number] Acct: [id number] Name: MARISSABRYCE B Rep #: [id number] : 1940 77 From: Tomi Casiano DO [...] his primary care physician and 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 Advised to eat small meals and to stay hydrated. Impression: 1. Ventral hernia This note was generated with Carmudi dictation software. It may contain incorrect words, [...] your Primary Care Provider. Call [facility] ([phone]) or report to the closest Emergency Room. Call 911 if necessary. 03/24/18 7274 <Electronically signed by Tomi Casiano DO> Date Tomi Casiano DO Cosigner Signature (If Indicated): Date CC: Gloria Hazel MD ABDOMEN/PELVIS WITHOUT Observed: 03/24/2018 Status: F Source: [place] CONT 12:27 PM [facility] REPOSITORY [facility] Imaging Services [address] [place] [address] Abdomen/Pelvis without Cont MR#: [id number] Acct: [id number] Name: BRYCE ANN Rep #: [id number] : 1940 M 77 From: Aroldo Mcfadden MD PCP: Gloria Hazel MD Status: REG ER Study: Abdomen/Pelvis without Cont Date of Exam: 03/24/18 Exam# [id number] Ordering Dr: Tomi Casiano DO STUDY: CT [...] CC: Gloria Hazel MD; Tomi Casiano DO Jetting Machine Operator: Signed CBC W/DIFF, AUTOMATED Collected: 03/01/2018 Status: F Source: [place] 12:46 PM [facility] REPOSITORY TYPE CODE TESTS RESULT OUT OF [...] Lymph 0.77 Performed By: #### L100.0100 #### [facility] [address] [place], [place], [address] COMPREHENSIVE METABOLIC Collected: 03/01/2018 Status: F Source: [facility] 12:46 PM [facility] REPOSITORY TYPE CODE TESTS RESULT OUT OF [...] GAP 9 Performed By: #### L500.4050 #### [facility] [address] [place], [address] PSA,TOTAL - ANNUAL Collected: 01/01/2018 Status: F Source: [place] SCREEN 4:24 PM [facility] REPOSITORY TYPE CODE TESTS RESULT OUT OF RANGE REFERENCE UNITS LAB L501.9910 0.00-4.00 ng/mL Normal PSA,TOT 0.56 SCREEN Result Comment: This test was performed using the TPSA assay method for the exoro system chemistry system. Values obtained with different assay methods cannot be used interchangably. When changing PSA assays in the course of monitoring a patient, additional sequential testing should be carried out to confirm baseline values. Performed By: #### L501.9910 #### [facility] [address] [facility], [address] COMPREHENSIVE METABOLIC Collected: 12/11/2017 Status: F Source: [place] PROFIL 4:36 PM [facility] REPOSITORY TYPE CODE TESTS RESULT OUT OF [...] 8 GAP Performed By: #### L500.4050 #### [facility] [address] [place], [address] CBC W/DIFF, AUTOMATED Collected: 12/11/2017 Status: F Source: [place] 4:36 PM [facility] REPOSITORY TYPE CODE TESTS RESULT OUT OF [...] Lymph 0.77 Performed By: #### L100.0100 #### [facility] [address] [facility] [place]. [place], [place], [address] CBC W/DIFF, AUTOMATED Collected: 09/28/2017 Status: F Source: [place] 12:17 PM [facility] REPOSITORY TYPE CODE TESTS RESULT OUT OF [...] Lymph 0.97 Performed By: #### L100.0100 #### [facility] [address] [place], [address] COMPREHENSIVE METABOLIC Collected: 09/28/2017 Status: F Source: [facility] 12:17 PM [facility] REPOSITORY TYPE CODE TESTS RESULT OUT OF [...] GAP 8 Performed By: #### L500.4050 #### [facility] [address] [place], [address] PT D/C SUMMARY (1) Observed: 07/18/2017 Status: F Source: [place] 2:52 PM [facility] REPOSITORY [facility] [address] [place] [address]. [address] [place], [place] [address] Fax REHABILITATION SERVICES DISCHARGE SUMMARY MR#: [id number] Acct: [id number] Name: BRYCE ANN Rep #: [id number] : 1940 76 From: Kyree Dominguez PT, [...] please feel free to call me at [phone]. Thank you for the referral of this patient. Sincerely, Kyree Dominguez, PT, <Electronically signed by Kyree Dominguez PT, Cert. MDT, OCS> 07/18/17 1451 CC: Gloria Hazel MD NEERAJ Signed CBC W/DIFF, AUTOMATED Collected: 07/10/2017 Status: F Source: [place] 3:10 PM [facility] REPOSITORY TYPE CODE TESTS RESULT OUT OF [...] Lymph 0.70 Performed By: #### L100.0100 #### [facility] [address] [place], [address] COMPREHENSIVE METABOLIC Collected: 07/10/2017 Status: F Source: [facility] 3:10 PM [facility] REPOS[facility]ORY TYPE CODE TESTS RESULT OUT OF [...] GAP 9 Performed By: #### L500.4050 #### [facility] [address] [place], [address] PELVIS 1 OR 2 VIEWS Observed: 06/23/2017 Status: F Source: [place] 12:27 PM [facility] REPOSITORY [facility] Imaging Services [address] [place] [address] Pelvis 1 or 2 Views MR#: [id number] Acct: [id number] Name: MARISSABRYCE B Rep #: [id number] : 1940 M 76 From: Abdoulaye Gomez MD PCP: Gloria Hazel MD Status: REG CLI Study: Pelvis 1 or 2 Views Date of Exam: 06/23/17 Exam# [id number] Ordering Dr: Gloria Hazel MD STUDY: X-RAY [...] Service support , CC: Gloria Hazel MD Jetting Machine Operator: Signed ALLERGIES ALLERGIES DATE TYPE / CODE NAME / CODE REACTION SEVERITY SOURCE 05/30/2018 Drug No Known Unknown [facility] Allergy/4160 Allergies/F00 Hospital 84373(SNOMED 0624870(RXNOR Repository CT) M) ENCOUNTERS ENCOUNTERS ADMIT/DISCHARGE ACCOUNT ADMITTING ENCOUNTER LOCATION SOURCE NUMBER CLASS 05/30/2018/ [id number] Ambulatory BMSBuilding:B [place] 9 5 [facility] Repository 05/24/2018 [id number] Ambulatory [place] 8 [facility] ing:MTLAB Repository 05/15/2018 [id number] Ambulatory BMSBuilding:B [place] 6 MS.[facility] Repository 05/15/2018/ [id number] Ambulatory [place] 8 0 [facility] ing:SDC Repository 05/14/2018 [id number] Ambulatory [place] 6 [facility] ing:MEDOUTP Repository 05/09/2018 [id number] Ambulatory BMSBuilding:W [place] 2 [facility] Repository 03/30/2018/ [id number] Ambulatory BMSBuilding:B [place] 8 2 [facility] Repository 03/24/2018/ [id number] Emergency [place] 8 5 [facility] ing:ED Repository 03/13/2018 [id number] Ambulatory [place] 7 [facility] ing:MEDOUTP Repository 03/01/2018 [id number] Ambulatory [place] 7 [facility] ing:MTLAB Repository 01/17/2018 [id number] Ambulatory [place] 2 [facility] ing:MEDOUTP Repository 01/01/2018 [id number] Ambulatory [place] 1 [facility] ing:LAB Repository 12/11/2017 [id number] Ambulatory [place] 1 [facility] ing:MTLAB Repository 11/17/2017 [id number] Ambulatory [place] 4 [facility] ing:MEDOUTP Repository 09/28/2017 [id number] Ambulatory [place] 3 [facility] ing:MTLAB Repository 09/22/2017 [id number] Ambulatory [place] 1 [facility] ing:MEDOUTP Repository 07/28/2017 [id number] Ambulatory [place] 9 [facility] ing:MEDOUTP Repository 07/11/2017/ [id number] Ambulatory [place] 8 0 [facility] ing:PT Repository 07/10/2017 [id number] Ambulatory [place] 7 [facility] ing:MTLAB Repository 06/23/2017 [id number] Ambulatory [place] 2 [facility] ing:MTRAD Repository PAYERS PAYERS ENCOUNTER GUARANTOR PAYER SUBSCRIBER SOURCE 05/30/2018 BRYCE [place] Primary BRYCE B [place] [id number] BRANDI Insurance:ZOYA [facility] [place] [facility] [id number] Hospital [address]Gfi: (949) ADVANTAPolicy Number: Repository [phone] HP) [id number] Date:[id number] [address]VR: 05/30/2018 Secondary NOT GIVENUNK [place] Insurance:SELF PAY [facility] Number: Effective Repository Date:2018-05-30 05/24/2018 BRYCE Huber Primary BRYCE B [place] [id number] BRANDI Insurance:JAMES MORRELLB: [place] PPOPolicy [id number] Hospital [address]Byr: (330) Number: Repository [phone] () [id number] Date:4898-43-81HC [address] [place] [address]CO: 05/24/2018 Secondary NOT GIVENUNK [place] Insurance:SELF PAY [facility] Number: Effective Repository Date:2018-05-24 05/15/2018 BRYCE B Primary BRYCE B [place] [id number] BRANDI Insurance:HUMANA CONRADDOB: [place] PPOPolicy [id number] Hospital [address]Ipl: (330) Number: Repository [phone] () [id number] Date:5375-85-47PG [address] [address]KM: 05/15/2018 Secondary NOT GIVENUNK [place] Insurance:SELF PAY [facility] Number: Effective Repository Date:2018-05-15 05/15/2018 BRYCE B Primary BRYCE B [place] [id number] BRANDI Insurance:HUMANA CONRADDOB: [place] PPOPolicy [id number] Hospital [address]Bsz: (330) Number: Repository [phone] () [id number] Date:6729-21-32RA [address] [address]PC: 05/15/2018 Secondary NOT GIVENUNK [place] Insurance:SELF PAY [facility] Number: Effective Repository Date:2018-04-04 05/14/2018 BRYCE B Primary BRYCE B [place] [id number] BRANDI Insurance:HUMANA CONRADDOB: [place] PPOPolicy [id number] Hospital [address]Otf: (330) Number: Repository [phone] () [id number] Date:6463-79-85XT [address] [address]EM: 05/14/2018 Secondary NOT GIVENUNK [place] Insurance:SELF PAY [facility] Number: Effective Repository Date:2018-03-13 05/09/2018 BRYCE B Primary BRYCE B [place] [id number] BRANDI Insurance:HUMANA CONRADDOB: [place] MEDICARE [facility] [id number] Hospital [address]Dsk: (330) Number: Repository [phone] () [id number] Date:6589-49-67TV [place] [address]WP: 05/09/2018 Secondary NOT GIVENUNK [place] Insurance:SELF PAY [facility] Number: Effective Repository Date:2018-05-09 03/30/2018 BRYCE B Primary BRYCE B [place] [id number] BRANDI Insurance:HUMANA CONRADDOB: [facility] [place] PPOP[place]icy [id number] Hospital [address]Kjs: (330) Number: Repository [phone] () [id number] Date:4107-61-56JL [address]: 03/30/2018 Secondary NOT GIVENUNK [place] Insurance:SELF PAY [facility] Number: Effective Repository Date:2018-03-27 03/24/2018 BRYCE B Primary BRYCE B [place] [id number] BRANDI Insurance:HUMANA CONRADDOB: [place] PPOPolicy [id number] Hospital [address]Qdc: (330) Number: Repository [phone] () [id number] Date:5402-65-19CF [place] [id number]: 03/24/2018 Secondary NOT GIVENUNK [place] Insurance:SELF PAY [facility] Number: Effective Repository Date:2018-03-24 03/13/2018 BRYCE B Primary BRYCE B [place] [id number] BRANDI Insurance:HUMANA CONRADDOB: [place] PPOPolicy [id number] Hospital [address]Skz: (330) Number: Repository [phone] () [id number] Date:5609-96-60[place] [address]WP: 03/13/2018 Secondary NOT GIVENUNK [place] Insurance:SELF PAY [facility] Number: Effective Repository Date:2018-01-17 03/01/2018 BRYCE B Primary BRYCE B [place] [id number] BRANDI Insurance:HUMANA CONRADDOB: [place] OPolic [id number] Hospital [address]Fnr: (330) Number: Repository [phone] () [id number] Date:4509-15-38EI [address]46[address]WP: 03/01/2018 Secondary NOT GIVENUNK [place] Insurance:SELF PAY [facility] Number: Effective Repository Date:2018-03-01 01/17/2018 BRYCE B Primary BRYCE B [place] [id number] BRANDI Insurance:HUMANA [place]RADDOB: [place] [facility] [facility] [id number] [facility] [address]Mxl: [phone] Number: Repository [phone] () [id number] Date:1288-66-49EE [address]4601WP: 01/17/2018 Secondary NOT GIVENUNK Jerrod Insurance:SELF PAY [facility] Number: Effective Repository Date:2017-11-17 01/01/2018 Bryce B Primary Bryce B [place] [id number] Brandi Insurance:HUMANA [place] [facility] [id number] Hospital [address]Ojw: [phone] Number: Repository [phone] () [id number] Date:3460-13-58CC [address] [address]CU: 01/01/2018 Secondary NOT GIVENUNK [place] Insurance:SELF PAY [facility] Number: Effective Repository Date:2018-01-01 12/11/2017 Bryce B Primary Bryce B [place] [id number] Brandi Insurance:HUMANA ConradD[facility] [place] [facility] [id number] Hospital [address]Rik: [phone]) Number: Repository [phone] () [id number] Date:7209-48-74AH [place] [address]WP: 12/11/2017 Secondary NOT GIVENUNK [place] Insurance:SELF PAY [facility] Number: Effective Repository Date:2017-12-11 11/17/2017 Bryce B Primary Bryce B [place] [id number] Brandi Insurance:HUMANA [place] [address] [facility] [id number] [phone]: [phone] Number: Repository [phone] () [id number] Date:2688-19-15YX [place] [address]WP: 11/17/2017 Secondary NOT GIVENUNK [place] Insurance:SELF PAY [facility] Number: Effective Repository Date:2017-09-22 09/28/2017 Bryce B Primary Bryce B [place] [id number] Brandi Insurance:HUMANA ConradD[facility] [place] [facility] [id number] [place] [phone]: [phone] Number: Repository [phone] () [id number] Date:9530-71-59AQ [place] [address]WP: 09/28/2017 Secondary NOT GIVENUNK [place] Insurance:SELF PAY [facility] Number: Effective Repository Date:2017-09-28 09/22/2017 Bryce B Primary Bryce B [place] [id number] Brandi Insurance:HUMANA ConradD[facility] [place] [facility] [id number] Hospital [address]Wpf: [phone] Number: Repository [phone] () [id number] Date:4330-64-29WF [address] [address]VG: 09/22/2017 Secondary NOT GIVENUNK [place] Insurance:SELF PAY [facility] Number: Effective Repository Date:2017-07-28 07/28/2017 Bryce B Primary Bryce B [place] [id number] Brandi Insurance:HUMANA ConradD[place] [facility] [id number] Hospital [address]Cjp: [phone] Number: Repository [phone] () [id number] Date:4301-09-43TG[address] [address]QR: 07/28/2017 Secondary NOT GIVENUNK [place] Insurance:SELF PAY [facility] Number: Effective Repository Date:2017-06-02 07/11/2017 Bryce B Primary Bryce B [place] [id number] Brandi Insurance:HUMANA ConradDOB: [place] [facility] [id number] [place] [phone]: [phone] Number: Repository [phone] () [id number] Date:9008-62-30[place] [address]WP: 07/11/2017 Secondary NOT GIVENUNK [place] Insurance:SELF PAY [facility] Number: Effective Repository Date:2017-05-15 07/10/2017 Bryce B Primary Bryce B [place] [id number] Brandi Insurance:HUMANA [facility] [place] PP[facility] [id number] [phone]: [phone] Number: Repository [phone] () [id number] Date:4915-11-13JL [address] [address]VR: 07/10/2017 Secondary NOT GIVENUNK [place] Insurance:SELF PAY [facility] Number: Effective Repository Date:2017-07-10 06/23/2017 Bryce B Primary Bryce B [place] [id number] Brandi Insurance:HUMANA ConradD[place] PP[place] [id number] Hospital [address]Hds: [phone]) Number: Repository [phone] () [id number] Date:9727-62-26[address] [address]IXDGYSN, [place] [address]AZ: 06/23/2017 Secondary NOT GIVENUNK [place] Insurance:SELF PAY [facility] Number: Effective Repository Date:2017-06-23
== END 2018-05-15 15:29 | disposition home or self-care (01) ==
LOC: SDC 10:15 → AC 11:59
PROVIDERS: Family Provider Family Medicine; PCP Family Medicine; Referring Provider Surgery; Visit Provider Surgery
PROC: (CPT 49585; principal; 2018-05-15 11:55)
DX: K42.9 Umbilical hernia without obstruction or gangrene (principal); F17.200 Nicotine dependence, unspecified, uncomplicated; M08.00 Unspecified juvenile rheumatoid arthritis of unspecified site; R23.3 Spontaneous ecchymoses
CPT/HCPCS: 49585; 36415; 80076; 85027; 85610; 85730; 93005; J7120; J2405

== ENCOUNTER → 2018-05-24 16:19 | Outpatient (CLI) | payer MEDICARE, SELFPAY ==
[2018-05-14 11:24] VITALS: BMI 28.0
[2018-05-24 17:58] LABS: Absolute Lymphocyte Count 1.45 X10^3/ul (0.83-4.51); Absolute Neutrophil Count 6.4 X10^3/uL (2.0-7.7); Basophil# 0.02 X10^3/uL; Basophil% 0.2 % (0-1); Eosinophil# 0.05 X10^3/uL; Eosinophils% 0.6 % (0-5); Hematocrit 43.8 % (40-54); Hemoglobin 14.2 g/dl (13.0-16.5); Lymphocyte # 1.45 X10^3/ul (4.0); Lymphocyte % 17.3 % (19-41); Mean Corp Hgb Conc 32.4 g/gl (32-36); Mean Corpuscular Hgb 32.2 pg (27.0-32.0); Mean Corpuscular Volume 99.3 fL (80-94); Mean Platelet Vol. 10.1 fl (6.2-12.0); Monocyte# 0.45 X10^3/uL; Monocyte% 5.4 % (0-10); Neutrophil # 6.38 X10^3/uL (2.7-7.7); Neutrophil % 76.4 % (47-70); Platelet Count 221 K/mm3 (150-450); RBC Distribution Width CV 14.1 % (11.6-14.6); Red Blood Count 4.41 M/mm3 (4.6-6.2); White Blood Count 8.4 K/mm3 (4.4-11.0)
[2018-05-24 18:02] LABS: POSITIVE COUNT NO; POSITIVE DIFFERENTIAL NO; POSITIVE MORPHOLOGY NO
[2018-05-24 18:07] LABS: ALB/GLOB Ratio 1.2 RATIO (0.9-2.4); AST(SGOT) 23 U/L (15-37); Alanine Aminotransfer ALT/SGPT 28 U/L (16-61); Albumin, Serum 3.7 g/dL (3.2-5.0); Alkaline Phosphatase 54 U/L (45-117); Anion Gap 10 (5-15); BUN 11 mg/dL (7-18); BUN/Creat Ratio 12.5 RATIO (10-20); Calcium,Total 8.9 mg/dL (8.5-10.1); Chloride 104 mmol/L (98-107); Creatinine, Serum 0.88 mg/dL (0.70-1.30); EST Glomerular Filtration Rate 90 mL/min (>60); Est Glom Filt Rate - Afr Amer 108 mL/min (>60); Globulin 3.1 g/dL (2.2-4.2); Glucose 92 mg/dL (74-106); Potassium 4.2 mmol/L (3.5-5.1); Protein, Total 6.8 g/dL (6.4-8.2); Sodium Level 142 mmol/L (136-145)
== END ==
LOC: MTLAB 16:20
PROVIDERS: Family Provider Family Medicine; PCP Family Medicine; Referring Provider Internal Medicine Rheumatology; Visit Provider Internal Medicine Rheumatology
DX: M05.70 Rheumatoid arthritis with rheumatoid factor of unspecified site without organ or systems involvement (principal)
CPT/HCPCS: 36415; 80053; 85025

== ENCOUNTER → 2018-07-09 10:39 | Outpatient (CLI) | payer MEDICARE, SELFPAY ==
[2018-05-14 11:24] VITALS: BMI 28.0
[2018-07-09 11:08] VITALS: BP 124/70; PULSE 84; RESP 18; TEMP 36.8; O2SAT 98; BMI 28.7
== END ==
PROVIDERS: Family Provider Family Medicine; PCP Family Medicine; Referring Provider Internal Medicine Rheumatology; Visit Provider Internal Medicine Rheumatology
DX: M06.9 Rheumatoid arthritis, unspecified (principal)
CPT/HCPCS: 96365; J7050; A4216; J1602

== ENCOUNTER → 2018-08-21 16:44 | Outpatient (CLI) | payer MEDICARE, SELFPAY ==
[2018-07-09 11:08] VITALS: BMI 28.7
[2018-08-21 18:01] LABS: Absolute Lymphocyte Count 1.56 X10^3/ul (0.83-4.51); Absolute Neutrophil Count 4.3 X10^3/uL (2.0-7.7); Basophil# 0.02 X10^3/uL; Basophil% 0.3 % (0-1); Eosinophil# 0.15 X10^3/uL; Eosinophils% 2.2 % (0-5); Hematocrit 43.1 % (40-54); Hemoglobin 13.9 g/dl (13.0-16.5); Lymphocyte # 1.56 X10^3/ul (4.0); Lymphocyte % 23.2 % (19-41); Mean Corp Hgb Conc 32.3 g/gl (32-36); Mean Corpuscular Volume 99.1 fL (80-94); Mean Platelet Vol. 9.7 fl (6.2-12.0); Monocyte# 0.72 X10^3/uL; Monocyte% 10.7 % (0-10); Neutrophil # 4.27 X10^3/uL (2.7-7.7); Neutrophil % 63.5 % (47-70); Platelet Count 190 K/mm3 (150-450); RBC Distribution Width CV 13.8 % (11.6-14.6); RBC Distribution Width SD 48.6 fl (35.1-43.9); Red Blood Count 4.35 M/mm3 (4.6-6.2); White Blood Count 6.7 K/mm3 (4.4-11.0)
[2018-08-21 18:18] LABS: POSITIVE COUNT NO; POSITIVE DIFFERENTIAL NO; POSITIVE MORPHOLOGY NO
[2018-08-21 18:25] LABS: ALB/GLOB Ratio 1.2 RATIO (0.9-2.4); AST(SGOT) 24 U/L (15-37); Alanine Aminotransfer ALT/SGPT 26 U/L (16-61); Albumin, Serum 3.6 g/dL (3.2-5.0); Alkaline Phosphatase 63 U/L (45-117); Anion Gap 4 (5-15); BUN 12 mg/dL (7-18); BUN/Creat Ratio 12.8 RATIO (10-20); Calcium,Total 8.5 mg/dL (8.5-10.1); Chloride 107 mmol/L (98-107); Creatinine, Serum 0.94 mg/dL (0.70-1.30); EST Glomerular Filtration Rate 83 mL/min (>60); Est Glom Filt Rate - Afr Amer 101 mL/min (>60); Globulin 2.9 g/dL (2.2-4.2); Glucose 99 mg/dL (74-106); Potassium 3.8 mmol/L (3.5-5.1); Protein, Total 6.5 g/dL (6.4-8.2); Sodium Level 141 mmol/L (136-145)
== END ==
PROVIDERS: Family Provider Family Medicine; PCP Family Medicine; Referring Provider Internal Medicine Rheumatology; Visit Provider Internal Medicine Rheumatology
DX: M05.70 Rheumatoid arthritis with rheumatoid factor of unspecified site without organ or systems involvement (principal); Z79.899 Other long term (current) drug therapy; M17.0 Bilateral primary osteoarthritis of knee; G47.00 Insomnia, unspecified; M21.40 Flat foot [pes planus] (acquired), unspecified foot; M47.897 Other spondylosis, lumbosacral region; I87.2 Venous insufficiency (chronic) (peripheral); N40.1 Benign prostatic hyperplasia with lower urinary tract symptoms
CPT/HCPCS: 36415; 80053; 85025

== ENCOUNTER → 2018-10-15 13:38 | Outpatient (CLI) | payer MEDICARE, SELFPAY ==
[2018-07-09 11:08] VITALS: BMI 28.7
[2018-10-15 13:47] VITALS: BP 131/82; PULSE 73; RESP 16; TEMP 36.7; O2SAT 96; BMI 28.1
== END ==
LOC: MEDOUTP 13:38
PROVIDERS: Family Provider Family Medicine; PCP Family Medicine; Visit Provider Internal Medicine Rheumatology
DX: M05.79 Rheumatoid arthritis with rheumatoid factor of multiple sites without organ or systems involvement (principal)
CPT/HCPCS: 96365; J7050; A4216; J1602

== ENCOUNTER → 2018-11-27 14:36 | Outpatient (CLI) | payer MEDICARE, SELFPAY ==
[2018-10-15 13:47] VITALS: BMI 28.1
[2018-11-27 15:26] LABS: Absolute Neutrophil Count 4.3 X10^3/uL (2.0-7.7); Basophil# 0.02 X10^3/uL; Basophil% 0.3 % (0-1); Eosinophil# 0.06 X10^3/uL; Hematocrit 41.6 % (40-54); Lymphocyte % 18.5 % (19-41); Mean Corp Hgb Conc 33.7 g/gl (32-36); Mean Corpuscular Hgb 31.6 pg (27.0-32.0); Mean Corpuscular Volume 93.9 fL (80-94); Mean Platelet Vol. 9.7 fl (6.2-12.0); Monocyte# 0.42 X10^3/uL; Monocyte% 7.1 % (0-10); Neutrophil # 4.32 X10^3/uL (2.7-7.7); Neutrophil % 72.9 % (47-70); Platelet Count 182 K/mm3 (150-450); RBC Distribution Width CV 14.1 % (11.6-14.6); RBC Distribution Width SD 46.6 fl (35.1-43.9); Red Blood Count 4.43 M/mm3 (4.6-6.2); White Blood Count 5.9 K/mm3 (4.4-11.0)
[2018-11-27 15:28] LABS: POSITIVE COUNT NO; POSITIVE DIFFERENTIAL NO; POSITIVE MORPHOLOGY NO
[2018-11-27 15:50] LABS: ALB/GLOB Ratio 1.4 RATIO (0.9-2.4); AST(SGOT) 19 U/L (15-37); Alanine Aminotransfer ALT/SGPT 21 U/L (16-61); Albumin, Serum 3.8 g/dL (3.2-5.0); Alkaline Phosphatase 47 U/L (45-117); Anion Gap 7 (5-15); BUN 8 mg/dL (7-18); BUN/Creat Ratio 9.1 RATIO (10-20); Calcium,Total 8.8 mg/dL (8.5-10.1); Chloride 108 mmol/L (98-107); Creatinine, Serum 0.88 mg/dL (0.70-1.30); EST Glomerular Filtration Rate 89 mL/min (>60); Est Glom Filt Rate - Afr Amer 108 mL/min (>60); Globulin 2.8 g/dL (2.2-4.2); Glucose 96 mg/dL (74-106); Potassium 3.5 mmol/L (3.5-5.1); Protein, Total 6.6 g/dL (6.4-8.2); Sodium Level 138 mmol/L (136-145)
== END ==
PROVIDERS: Family Provider Family Medicine; PCP Family Medicine; Referring Provider Internal Medicine Rheumatology; Visit Provider Internal Medicine Rheumatology
DX: M05.70 Rheumatoid arthritis with rheumatoid factor of unspecified site without organ or systems involvement (principal); Z79.899 Other long term (current) drug therapy; M25.512 Pain in left shoulder; M17.0 Bilateral primary osteoarthritis of knee; G47.00 Insomnia, unspecified; M21.40 Flat foot [pes planus] (acquired), unspecified foot; M47.897 Other spondylosis, lumbosacral region; I87.2 Venous insufficiency (chronic) (peripheral); N40.1 Benign prostatic hyperplasia with lower urinary tract symptoms
CPT/HCPCS: 36415; 80053; 85025

== ENCOUNTER → 2018-12-10 13:36 | Outpatient (CLI) | payer MEDICARE, SELFPAY ==
[2018-10-15 13:47] VITALS: BMI 28.1
[2018-12-10 13:55] VITALS: BP 118/68; PULSE 68; RESP 16; TEMP 37.2; O2SAT 98; BMI 26.4
== END ==
LOC: MEDOUTP 13:36
PROVIDERS: Family Provider Family Medicine; PCP Family Medicine; Referring Provider Internal Medicine Rheumatology; Visit Provider Internal Medicine Rheumatology
DX: M05.79 Rheumatoid arthritis with rheumatoid factor of multiple sites without organ or systems involvement (principal)
CPT/HCPCS: 96413; J7050; A4216; J1602

== ENCOUNTER → 2019-01-17 12:49 | Outpatient (CLI) | payer MEDICARE, SELFPAY ==
[2018-12-10 13:55] VITALS: BMI 26.4
--- NOTE | 2019-01-17 12:51 | ECHOCS_ITS ---
Reason For Study: Murmur Procedure This was a 2D Doppler, Color Flow transthoracic echocardiogram. Contrast injection was performed. Exam performed in department. Left Ventricle Normal size and thickness. The estimated ejection fraction is 55 %. Stage 1 diastolic dysfunction. [place] : Akinetic. Septal [place] : Akinetic. Inferior [place] : Akinetic. Right Ventricle Normal right ventricle. Normal systolic function. Atria Normal left atrium. Normal right atrium. Normal atrial septum. Bubble contrast study negative for right to left interatrial shunt. Mitral Valve The mitral valve is structurally normal. No prolapse or stenosis seen. Trivial mitral valve insufficiency. Tricuspid Valve Normal tricuspid valve. Trivial tricuspid valve insufficiency. Right ventricular systolic pressure estimated to be 27 mmHg. Aortic Valve Trisinus/trileaflet aortic valve. Mild diffuse aortic valve thickening. Mild focal aortic valve thickening. Mild restriction of the aortic valve. Mild aortic stenosis. Pulmonic Valve Normal pulmonic valve. Trivial eccentric pulmonic valve insufficiency. Great Vessels Normal aortic root. Mild atherosclerosis of the aortic arch. Normal inferior vena cava. Inferior vena cava collapse with sniff. Pericardium/Pleural No pericardial effusion. Medication 22 gauge I.V. with prn adaptor inserted into right arm. Diluted definity 3ml given slow IV push to enhance endocardial definition. Performed a rapid injection of agitated mix of 9 cc saline and 1cc air to assess for atrial septal defect. MMode/2D Measurements & Calculations LVIDd: 4.5 cm IVSd: 0.96 cm LA dimension: 3.7 cm LVIDs: 3.2 cm LVPWd: 1.1 cm FS: 29.8 % LAV(MOD-bp): 54.8 ml LA A4 area: 19.0 cm2 RA A4 area: 18.6 cm2 LAV(MOD-bp) Indexed: 32.0 ml/m2 LAV(MOD-sp2): 57.1 ml LAV(MOD-sp4): 51.1 ml Time Measurements MV dec time: 0.24 sec Doppler Measurements & Calculations MV E max pardeep: 84.2 cm/sec Lat Peak E' Pardeep: 6.3 cm/sec Med Peak E' Pardeep: 6.4 cm/sec MV A max pardeep: 101.2 cm/sec E/E' lat: 13.4 E/E' med: 13.2 MV E/A: 0.83 MV V2 max: 113.6 cm/sec MV P1/2t max pardeep: 107.9 cm/sec Ao V2 max: 168.0 cm/sec MV max P.2 mmHg MV P1/2t: 110.8 msec Ao max P.3 mmHg MV V2 mean: 68.6 cm/sec MV dec slope: 285.1 cm/sec2 Ao V2 mean: 115.1 cm/sec MV mean P.2 mmHg Ao mean P.9 mmHg MV V2 VTI: 37.6 cm MVA(P1/2t): 2.0 cm2 Ao V2 VTI: 36.4 cm LV V1 max: 99.8 cm/sec MR max pardeep: 476.3 cm/sec PA V2 max: 78.0 cm/sec LV V1 max P.0 mmHg MR max P.7 mmHg LV V1 mean P.9 mmHg LV V1 mean: 64.0 cm/sec LV V1 VTI: 22.5 cm TR max pardeep: 237.7 cm/sec TR max P.6 mmHg Interpretation Summary The estimated ejection fraction is 55 %. Stage 1 diastolic dysfunction. [place] : Akinetic. Septal [place] : Akinetic. Inferior [place] : Akinetic. Trivial mitral valve insufficiency. Trivial tricuspid valve insufficiency. Right ventricular systolic pressure estimated to be 27 mmHg. Mild aortic stenosis. Bubble contrast study negative for right to left interatrial shunt. The study was technically difficult. There is no comparison study available. Contrast injection was performed. Ordering Physician: Gloria Hazel Referring Physician: Gloria Hazel Performed By: Avery Romero RCS
== END ==
LOC: CVS 12:50
PROVIDERS: Family Provider Family Medicine; PCP Family Medicine; Referring Provider Family Medicine; Visit Provider Family Medicine
DX: R01.1 Cardiac murmur, unspecified (principal)
CPT/HCPCS: 93306; Q9957; A4216; C8929

== ENCOUNTER → 2019-02-04 14:03 | Outpatient (CLI) | payer MEDICARE, SELFPAY ==
[2018-12-10 13:55] VITALS: BMI 26.4
[2019-01-30 10:50] VITALS: BMI 26.5
[2019-02-04 15:49] VITALS: BP 99/60; PULSE 91; RESP 16; TEMP 36.6; O2SAT 87; BMI 26.3
== END ==
LOC: MEDOUTP 14:03
PROVIDERS: Family Provider Family Medicine; PCP Family Medicine; Referring Provider Internal Medicine Rheumatology; Visit Provider Internal Medicine Rheumatology
DX: M05.79 Rheumatoid arthritis with rheumatoid factor of multiple sites without organ or systems involvement (principal)
CPT/HCPCS: 96365; J7050; A4216; J1602

== ENCOUNTER → 2019-02-18 10:06 | Outpatient (CLI) | payer MEDICARE, SELFPAY ==
[2019-01-30 10:50] VITALS: BMI 26.5
[2019-02-04 15:49] VITALS: BMI 26.3
--- NOTE | 2019-02-18 10:08 | VDLE_ITS ---
Reason For Study: Swelling RIGHT LEFT GSV is normal. GSV is normal. CFV is compressible, spontaneous, phasic, CFV is compressible, spontaneous, phasic, competent and demonstrates normal competent, and demonstrates normal augmentation. augmentation. FV is compressible, spontaneous, phasic, FV is compressible, spontaneous, phasic, competent and demonstrates normal competent and demonstrates normal augmentation. augmentation. POP V is compressible, spontaneous, phasic, POP V is compressible, spontaneous, phasic, competent and demonstrates normal competent and demonstrates normal augmentation. augmentation. T/P Trunk is compressible. T/P Trunk is compressible. PTV is compressible. PTV is compressible. RT PerV is compressible. LT PerV is compressible. Procedure Exam performed in department. A preliminary report was called and/or faxed to Jose. Interpretation Summary Deep veins of the lower extremities are bilaterally patent and compressible segmentally. There is no evidence of deep vein thrombosis on either side. Valvular competence appears intact within the proximal deep venous systems bilaterally. The great saphenous veins appear bilaterally patent and compressible segmentally. Ordering Physician: Laith Garcia Referring Physician: Gloria Hazel M.D. Performed By: Joslyn Lewis RVT
[2019-02-18 11:30] LABS: Anion Gap 5 (5-15); BUN 11 mg/dL (7-18); BUN/Creat Ratio 13.7 RATIO (10-20); Calcium,Total 8.7 mg/dL (8.5-10.1); Chloride 107 mmol/L (98-107); EST Glomerular Filtration Rate 100 mL/min (>60); Est Glom Filt Rate - Afr Amer 120 mL/min (>60); Glucose 94 mg/dL (74-106); Potassium 3.7 mmol/L (3.5-5.1); Sodium Level 141 mmol/L (136-145)
== END ==
PROVIDERS: Family Provider Family Medicine; PCP Family Medicine; Referring Provider Specialist; Visit Provider Specialist
DX: R93.1 Abnormal findings on diagnostic imaging of heart and coronary circulation (principal); R60.9 Edema, unspecified; M79.89 Other specified soft tissue disorders
CPT/HCPCS: 36415; 80048; 93970

== ENCOUNTER → 2019-02-28 16:33 | Outpatient (CLI) | payer MEDICARE, SELFPAY ==
[2019-02-04 15:49] VITALS: BMI 26.3
[2019-02-28 17:27] LABS: Absolute Lymphocyte Count 1.42 X10^3/uL (0.83-4.51); Absolute Neutrophil Count 3.3 X10^3/uL (2.0-7.7); Basophil# 0.04 X10^3/uL; Basophil% 0.7 % (0-1); Eosinophil# 0.29 X10^3/uL; Eosinophils% 5.1 % (0-5); Hematocrit 39.2 % (40-54); Hemoglobin 13.1 g/dL (13.0-16.5); Lymphocyte # 1.42 X10^3/ul (4.0); Lymphocyte % 24.9 % (19-41); Mean Corp Hgb Conc 33.4 g/dL (32-36); Mean Corpuscular Hgb 32.5 pg (27.0-32.0); Mean Corpuscular Volume 97.3 fL (80-94); Mean Platelet Vol. 9.9 fl (6.2-12.0); Monocyte# 0.62 X10^3/uL; Monocyte% 10.9 % (0-10); NRBC Flagged by Analyzer 0 % (0-5); Neutrophil # 3.31 X10^3/uL (2.7-7.7); Platelet Count 174 K/mm3 (150-450); RBC Distribution Width CV 13.8 % (11.6-14.6); RBC Distribution Width SD 50.1 fl (35.1-43.9); Red Blood Count 4.03 M/mm3 (4.6-6.2); White Blood Count 5.7 K/mm3 (4.4-11.0)
[2019-02-28 17:39] LABS: ALB/GLOB Ratio 1.3 RATIO (0.9-2.4); AST(SGOT) 21 U/L (15-37); Alanine Aminotransfer ALT/SGPT 25 U/L (16-61); Albumin, Serum 3.6 g/dL (3.2-5.0); Alkaline Phosphatase 53 U/L (45-117); Anion Gap 7 (5-15); BUN 10 mg/dL (7-18); BUN/Creat Ratio 10.7 RATIO (10-20); Calcium,Total 8.2 mg/dL (8.5-10.1); Chloride 106 mmol/L (98-107); Creatinine, Serum 0.94 mg/dL (0.70-1.30); EST Glomerular Filtration Rate 83 mL/min (>60); Est Glom Filt Rate - Afr Amer 101 mL/min (>60); Globulin 2.8 g/dL (2.2-4.2); Glucose 96 mg/dL (74-106); Potassium 3.5 mmol/L (3.5-5.1); Protein, Total 6.4 g/dL (6.4-8.2); Sodium Level 139 mmol/L (136-145)
== END ==
PROVIDERS: Family Provider Family Medicine; PCP Family Medicine; Referring Provider Internal Medicine Rheumatology; Visit Provider Internal Medicine Rheumatology
DX: M05.70 Rheumatoid arthritis with rheumatoid factor of unspecified site without organ or systems involvement (principal); Z79.899 Other long term (current) drug therapy; M17.0 Bilateral primary osteoarthritis of knee; G47.00 Insomnia, unspecified; M21.40 Flat foot [pes planus] (acquired), unspecified foot; M47.897 Other spondylosis, lumbosacral region; I87.2 Venous insufficiency (chronic) (peripheral); N40.1 Benign prostatic hyperplasia with lower urinary tract symptoms
CPT/HCPCS: 36415; 80053; 85025

== ENCOUNTER → 2019-03-04 12:03 | Outpatient (CLI) | payer MEDICARE, SELFPAY ==
[2019-02-04 15:49] VITALS: BMI 26.3
--- NOTE | 2019-03-05 13:05 | STRESSREP ---
Stress Test Report Date: 03/04/2019 Procedure: Exercise tolerance test Indications: Abnormal EKG Consent: Per the patient Procedure: The patient exercised on a Sammy protocol for 4 minutes achieving a peak heart rate of 133 bpm (92 % predicted maximal heart rate) with a peak blood pressure 140/70 mmHg and a peak MET capacity of approximately 5.8 mET's. The baseline ECG demonstrated normal sinus rhythm, possible prior anterior VT. The peak exercise ECG demonstrated no significant ischemic changes. Patient had occasional PACs and PVCs during exercise and in recovery period. The functional capacity was considered average for age. The patient had no complaint of chest discomfort during exercise or recovery. The examination was discontinued secondary to dyspnea, leg discomfort. Impression: 1. Technically adequate (percent predicted maximal heart rate greater than 85%) exercise tolerance test 2. Exercise stress test is negative for exercise-induced chest pain or EKG changes of ischemia. Functional capacity is average for age This note was generated with [employer] software. It may contain incorrect words, spelling, and punctuation that were not noted in checking the note before signing.
== END ==
PROVIDERS: Family Provider Family Medicine; PCP Family Medicine; Referring Provider Specialist; Visit Provider Specialist
DX: R94.31 Abnormal electrocardiogram [ECG] [EKG] (principal); R93.1 Abnormal findings on diagnostic imaging of heart and coronary circulation; I51.89 Other ill-defined heart diseases; M79.604 Pain in right leg; M79.605 Pain in left leg; R60.9 Edema, unspecified
CPT/HCPCS: 93017

== ENCOUNTER → 2019-04-03 15:14 | Outpatient (CLI) | payer MEDICARE, SELFPAY ==
[2019-02-04 15:49] VITALS: BMI 26.3
[2019-03-18 13:43] VITALS: BMI 25.7
[2019-04-03 15:34] VITALS: BP 115/72; PULSE 78; RESP 18; TEMP 36.9; O2SAT 96; BMI 25.5
== END ==
LOC: MEDOUTP 15:14
PROVIDERS: Family Provider Family Medicine; PCP Family Medicine; Referring Provider Internal Medicine Rheumatology; Visit Provider Internal Medicine Rheumatology
DX: M05.79 Rheumatoid arthritis with rheumatoid factor of multiple sites without organ or systems involvement (principal)
CPT/HCPCS: 96365; J7050; J1602

== ENCOUNTER → 2019-05-30 15:51 | Outpatient (CLI) | payer MEDICARE, SELFPAY ==
[2019-04-03 15:34] VITALS: BMI 25.5
[2019-05-30 17:35] LABS: Absolute Lymphocyte Count 1.14 X10^3/uL (0.83-4.51); Absolute Neutrophil Count 2.9 X10^3/uL (2.0-7.7); Basophil# 0.05 X10^3/uL; Eosinophil# 0.29 X10^3/uL; Eosinophils% 5.9 % (0-5); Hematocrit 39.3 % (40-54); Hemoglobin 12.8 g/dL (13.0-16.5); Lymphocyte # 1.14 X10^3/ul (4.0); Mean Corp Hgb Conc 32.6 g/dL (32-36); Mean Corpuscular Hgb 31.8 pg (27.0-32.0); Mean Corpuscular Volume 97.5 fL (80-94); Monocyte# 0.54 X10^3/uL; Monocyte% 10.9 % (0-10); NRBC Flagged by Analyzer 0 % (0-5); Neutrophil # 2.92 X10^3/uL (2.7-7.7); Platelet Count 182 K/mm3 (150-450); RBC Distribution Width CV 13.2 % (11.6-14.6); RBC Distribution Width SD 47.4 fl (35.1-43.9); Red Blood Count 4.03 M/mm3 (4.6-6.2)
[2019-05-30 17:50] LABS: ALB/GLOB Ratio 1.3 RATIO (0.9-2.4); AST(SGOT) 22 U/L (15-37); Alanine Aminotransfer ALT/SGPT 25 U/L (16-61); Albumin, Serum 3.6 g/dL (3.2-5.0); Alkaline Phosphatase 60 U/L (45-117); Anion Gap 6 (5-15); BUN 12 mg/dL (7-18); BUN/Creat Ratio 12.1 RATIO (10-20); Calcium,Total 8.7 mg/dL (8.5-10.1); Chloride 108 mmol/L (98-107); Creatinine, Serum 0.99 mg/dL (0.70-1.30); EST Glomerular Filtration Rate 78 mL/min (>60); Est Glom Filt Rate - Afr Amer 95 mL/min (>60); Globulin 2.8 g/dL (2.2-4.2); Glucose 107 mg/dL (74-106); Potassium 3.8 mmol/L (3.5-5.1); Protein, Total 6.4 g/dL (6.4-8.2); Sodium Level 141 mmol/L (136-145)
== END ==
PROVIDERS: Family Provider Family Medicine; PCP Family Medicine; Referring Provider Internal Medicine Rheumatology; Visit Provider Internal Medicine Rheumatology
DX: M05.70 Rheumatoid arthritis with rheumatoid factor of unspecified site without organ or systems involvement (principal); M17.0 Bilateral primary osteoarthritis of knee; G47.00 Insomnia, unspecified; M21.40 Flat foot [pes planus] (acquired), unspecified foot; M47.897 Other spondylosis, lumbosacral region; I87.2 Venous insufficiency (chronic) (peripheral); N40.1 Benign prostatic hyperplasia with lower urinary tract symptoms; Z79.899 Other long term (current) drug therapy
CPT/HCPCS: 36415; 80053; 85025

== ENCOUNTER → 2019-06-03 15:20 | Outpatient (CLI) | payer MEDICARE, SELFPAY ==
[2019-04-03 15:34] VITALS: BMI 25.5
[2019-06-06 03:06] LABS: QNTFERON TB Mitogen Value > 10.00 IU/mL (.); QNTFERON TB Nil Value 0.05 IU/mL (.); QNTFERON TB1+ Ag Value 0.04 IU/mL (.); QNTFERON TB2+ Ag Value 0.03 IU/mL (.)
[2019-06-06 08:08] LABS: QNTIFERON TB Positive Criteria Negative (Negative)
== END ==
PROVIDERS: Family Provider Family Medicine; PCP Family Medicine; Referring Provider Internal Medicine Rheumatology; Visit Provider Internal Medicine Rheumatology
DX: M05.70 Rheumatoid arthritis with rheumatoid factor of unspecified site without organ or systems involvement (principal); M25.512 Pain in left shoulder; M17.0 Bilateral primary osteoarthritis of knee; G47.00 Insomnia, unspecified; M21.40 Flat foot [pes planus] (acquired), unspecified foot; M47.897 Other spondylosis, lumbosacral region; I87.2 Venous insufficiency (chronic) (peripheral); N40.1 Benign prostatic hyperplasia with lower urinary tract symptoms
CPT/HCPCS: 36415; 86480

== ENCOUNTER → 2019-06-11 11:48 | Outpatient (CLI) | payer MEDICARE, SELFPAY ==
[2019-04-03 15:34] VITALS: BMI 25.5
[2019-06-11 13:44] LABS: Absolute Neutrophil Count 4.8 X10^3/uL (2.0-7.7); Basophil# 0.04 X10^3/uL; Basophil% 0.6 % (0-1); Eosinophil# 0.15 X10^3/uL; Eosinophils% 2.3 % (0-5); Hematocrit 40.8 % (40-54); Hemoglobin 13.1 g/dL (13.0-16.5); Lymphocyte % 13.8 % (19-41); Mean Corp Hgb Conc 32.1 g/dL (32-36); Mean Corpuscular Volume 96.7 fL (80-94); Mean Platelet Vol. 10.1 fl (6.2-12.0); Monocyte# 0.58 X10^3/uL; Monocyte% 8.9 % (0-10); NRBC Flagged by Analyzer 0 % (0-5); Neutrophil # 4.82 X10^3/uL (2.7-7.7); Neutrophil % 74.2 % (47-70); Platelet Count 191 K/mm3 (150-450); RBC Distribution Width CV 13.4 % (11.6-14.6); RBC Distribution Width SD 47.2 fl (35.1-43.9); Red Blood Count 4.22 M/mm3 (4.6-6.2); White Blood Count 6.5 K/mm3 (4.4-11.0)
[2019-06-11 13:57] LABS: ALB/GLOB Ratio 1.2 RATIO (0.9-2.4); AST(SGOT) 24 U/L (15-37); Alanine Aminotransfer ALT/SGPT 27 U/L (16-61); Albumin, Serum 3.7 g/dL (3.2-5.0); Alkaline Phosphatase 68 U/L (45-117); Anion Gap 5 (5-15); BUN 8 mg/dL (7-18); BUN/Creat Ratio 8.9 RATIO (10-20); Calcium,Total 9.2 mg/dL (8.5-10.1); Chloride 105 mmol/L (98-107); Creatinine, Serum 0.89 mg/dL (0.70-1.30); EST Glomerular Filtration Rate 88 mL/min (>60); Est Glom Filt Rate - Afr Amer 106 mL/min (>60); Globulin 3.2 g/dL (2.2-4.2); Glucose 91 mg/dL (74-106); Potassium 3.8 mmol/L (3.5-5.1); Protein, Total 6.9 g/dL (6.4-8.2); Sodium Level 138 mmol/L (136-145); Thyroid Stim Hormone (TSH) 0.82 uIU/mL (0.358-3.74)
== END ==
PROVIDERS: Family Provider Family Medicine; PCP Family Medicine; Referring Provider Family Medicine; Visit Provider Family Medicine
DX: R60.0 Localized edema (principal)
CPT/HCPCS: 36415; 80053; 84443; 85025

== ENCOUNTER → 2019-06-20 15:06 | Outpatient (CLI) | payer MEDICARE, SELFPAY ==
[2019-04-03 15:34] VITALS: BMI 25.5
[2019-06-20 15:14] VITALS: BP 110/68; PULSE 89; RESP 18; TEMP 36.5; O2SAT 97; BMI 25.3
[2019-06-20 16:15] VITALS: BP 99/59; PULSE 84; RESP 16
== END ==
LOC: MEDOUTP 15:07
PROVIDERS: PCP Family Medicine; Referring Provider Internal Medicine Rheumatology; Visit Provider Internal Medicine Rheumatology
DX: M05.79 Rheumatoid arthritis with rheumatoid factor of multiple sites without organ or systems involvement (principal)
CPT/HCPCS: 96365; J7050; A4216; J1602

== ENCOUNTER → 2019-08-19 | Outpatient (CLI) | payer MEDICARE, SELFPAY ==
[2019-04-03 15:34] VITALS: BMI 25.5
[2019-06-20 15:14] VITALS: BMI 25.3
[2019-08-19 15:22] VITALS: BP 105/62; PULSE 62; RESP 16; TEMP 36.7; BMI 24.5
[2019-08-19] MEDS: 0.9% NaCl IVPB Med Flush (250 mL) 15 ML IV (15:44)
== END | disposition home or self-care (01) ==
LOC: MEDOUTP 15:14
PROVIDERS: PCP Family Medicine; Referring Provider Internal Medicine Rheumatology; Visit Provider Internal Medicine Rheumatology
DX: M05.79 Rheumatoid arthritis with rheumatoid factor of multiple sites without organ or systems involvement (principal)
CPT/HCPCS: 96365; J7050; J1602

== ENCOUNTER → 2019-08-27 | Outpatient (CLI) | payer MEDICARE, SELFPAY ==
[2019-08-19 15:22] VITALS: BMI 24.5
[2019-08-27 17:45] LABS: Absolute Lymphocyte Count 1.83 X10^3/uL (0.83-4.51); Absolute Neutrophil Count 2.3 X10^3/uL (2.0-7.7); Basophil# 0.04 X10^3/uL; Basophil% 0.8 % (0-1); Eosinophil# 0.21 X10^3/uL; Eosinophils% 4.2 % (0-5); Hematocrit 40.7 % (40-54); Hemoglobin 13.2 g/dL (13.0-16.5); Lymphocyte # 1.83 X10^3/ul (4.0); Lymphocyte % 36.3 % (19-41); Mean Corp Hgb Conc 32.4 g/dL (32-36); Mean Corpuscular Hgb 31.1 pg (27.0-32.0); Mean Corpuscular Volume 95.8 fL (80-94); Monocyte# 0.64 X10^3/uL; Monocyte% 12.7 % (0-10); NRBC Flagged by Analyzer 0 % (0-5); Neutrophil # 2.31 X10^3/uL (2.7-7.7); Neutrophil % 45.8 % (47-70); Platelet Count 166 K/mm3 (150-450); RBC Distribution Width CV 13.8 % (11.6-14.6); RBC Distribution Width SD 48.3 fl (35.1-43.9); Red Blood Count 4.25 M/mm3 (4.6-6.2)
[2019-08-27 19:22] LABS: ALB/GLOB Ratio 1.3 RATIO (0.9-2.4); AST(SGOT) 27 U/L (15-37); Alanine Aminotransfer ALT/SGPT 29 U/L (16-61); Albumin, Serum 3.8 g/dL (3.2-5.0); Alkaline Phosphatase 58 U/L (45-117); Anion Gap 5 (5-15); BUN 12 mg/dL (7-18); BUN/Creat Ratio 13.3 RATIO (10-20); Calcium,Total 8.6 mg/dL (8.5-10.1); Chloride 107 mmol/L (98-107); EST Glomerular Filtration Rate 87 mL/min (>60); Est Glom Filt Rate - Afr Amer 105 mL/min (>60); Globulin 2.9 g/dL (2.2-4.2); Glucose 86 mg/dL (74-106); Potassium 3.7 mmol/L (3.5-5.1); Protein, Total 6.7 g/dL (6.4-8.2); Sodium Level 140 mmol/L (136-145)
== END | disposition home or self-care (01) ==
LOC: MTLAB 16:40
PROVIDERS: PCP Family Medicine; Referring Provider Internal Medicine Rheumatology; Visit Provider Internal Medicine Rheumatology
DX: M05.70 Rheumatoid arthritis with rheumatoid factor of unspecified site without organ or systems involvement (principal); M25.512 Pain in left shoulder; M17.0 Bilateral primary osteoarthritis of knee; G47.00 Insomnia, unspecified; M21.40 Flat foot [pes planus] (acquired), unspecified foot; M47.897 Other spondylosis, lumbosacral region; I87.2 Venous insufficiency (chronic) (peripheral); N40.1 Benign prostatic hyperplasia with lower urinary tract symptoms; Z79.899 Other long term (current) drug therapy
CPT/HCPCS: 36415; 80053; 85025

== ENCOUNTER → 2019-10-14 | Outpatient (CLI) | payer MEDICARE, SELFPAY ==
[2019-06-20 15:14] VITALS: BMI 25.3
[2019-08-19 15:22] VITALS: BMI 24.5
[2019-10-14] MEDS: 0.9% NaCl IVPB Med Flush (250 mL) 15 ML IV (15:35)
[2019-10-14] MEDS: 0.9% NaCl Peripheral Flush Adult/Peds IV (15:36)
[2019-10-14 15:38] VITALS: BP 102/62; PULSE 69; RESP 16; TEMP 36.8; O2SAT 98; BMI 24.6
== END | disposition home or self-care (01) ==
LOC: MEDOUTP 15:13
PROVIDERS: PCP Family Medicine; Referring Provider Internal Medicine Rheumatology; Visit Provider Internal Medicine Rheumatology
DX: M05.79 Rheumatoid arthritis with rheumatoid factor of multiple sites without organ or systems involvement (principal)
CPT/HCPCS: 96365; J7050; A4216; J1602

== ENCOUNTER → 2019-10-28 | Outpatient (CLI) | payer MEDICARE, SELFPAY ==
[2019-10-14 15:38] VITALS: BMI 24.6
--- NOTE | 2019-10-28 17:10 | RAD_ITS ---
STUDY: X-RAY - PELVIS AND LEFT HIP REASON FOR EXAM: Male, 78 years old. Left hip pain, no trauma TECHNIQUE: 3 views of the pelvis and hip. COMPARISON: None. FINDINGS: There is a non-specific bowel gas pattern. There are multiple calcified phleboliths. There is diffuse demineralization of the osseous structures. There is narrowing with cortical sclerosis and osteophyte formation of the sacroiliac joint consistent with degenerative osteoarthritic changes. Normal bilateral superior and inferior pubic rami. Normal pubic symphysis. Normal bilateral ischial tuberosities. Normal visualized femoral head. Normal acetabulum. There is moderate articular joint space narrowing of the hip. RAD/HIP, UNI W/ Pelvis 2-3 Views IMPRESSION: Demineralization of the osseous structures with age consistent bilateral hip and SI joint arthrosis. No demonstrated fracture or suspicious osseous lesion Electronically Signed: Luis Carlos Mullen MD at 18:03 EDT , Service support ,
== END | disposition home or self-care (01) ==
LOC: MTRAD 17:09
PROVIDERS: PCP Family Medicine; Referring Provider Nurse Practitioner Family; Visit Provider Nurse Practitioner Family
DX: M70.62 Trochanteric bursitis, left hip (principal)
CPT/HCPCS: 73502

== ENCOUNTER → 2019-12-02 | Outpatient (CLI) | payer MEDICARE, SELFPAY ==
[2019-08-19 15:22] VITALS: BMI 24.5
[2019-10-14 15:38] VITALS: BMI 24.6
[2019-12-02 18:07] LABS: Absolute Lymphocyte Count 0.63 X10^3/uL (0.83-4.51); Absolute Neutrophil Count 4.9 X10^3/uL (2.0-7.7); Basophil# 0.03 X10^3/uL; Basophil% 0.5 % (0-1); Eosinophil# 0.04 X10^3/uL; Eosinophils% 0.7 % (0-5); Hematocrit 40.8 % (40-54); Hemoglobin 13.4 g/dL (13.0-16.5); Lymphocyte # 0.63 X10^3/ul (4.0); Lymphocyte % 10.7 % (19-41); Mean Corp Hgb Conc 32.8 g/dL (32-36); Mean Corpuscular Hgb 32.3 pg (27.0-32.0); Mean Corpuscular Volume 98.3 fL (80-94); Mean Platelet Vol. 9.8 fl (6.2-12.0); Monocyte# 0.24 X10^3/uL; Monocyte% 4.1 % (0-10); NRBC Flagged by Analyzer 0 % (0-5); Neutrophil # 4.93 X10^3/uL (2.7-7.7); Neutrophil % 83.7 % (47-70); Platelet Count 165 K/mm3 (150-450); RBC Distribution Width CV 14.6 % (11.6-14.6); RBC Distribution Width SD 52.1 fl (35.1-43.9); Red Blood Count 4.15 M/mm3 (4.6-6.2); White Blood Count 5.9 K/mm3 (4.4-11.0)
[2019-12-02 18:18] LABS: ALB/GLOB Ratio 1.2 RATIO (0.9-2.4); AST(SGOT) 23 U/L (15-37); Alanine Aminotransfer ALT/SGPT 29 U/L (16-61); Albumin, Serum 3.7 g/dL (3.2-5.0); Alkaline Phosphatase 53 U/L (45-117); Anion Gap 7 (5-15); BUN 12 mg/dL (7-18); BUN/Creat Ratio 14.4 RATIO (10-20); Calcium,Total 8.6 mg/dL (8.5-10.1); Chloride 103 mmol/L (98-107); Creatinine, Serum 0.83 mg/dL (0.70-1.30); EST Glomerular Filtration Rate 95 mL/min (>60); Est Glom Filt Rate - Afr Amer 115 mL/min (>60); Globulin 3.1 g/dL (2.2-4.2); Glucose 98 mg/dL (74-106); Potassium 4.1 mmol/L (3.5-5.1); Protein, Total 6.8 g/dL (6.4-8.2); Sodium Level 137 mmol/L (136-145)
== END | disposition home or self-care (01) ==
LOC: MTLAB 16:14
PROVIDERS: PCP Family Medicine; Referring Provider Internal Medicine Rheumatology; Visit Provider Internal Medicine Rheumatology
DX: M05.70 Rheumatoid arthritis with rheumatoid factor of unspecified site without organ or systems involvement (principal); M25.512 Pain in left shoulder; M17.0 Bilateral primary osteoarthritis of knee; G47.00 Insomnia, unspecified; M21.40 Flat foot [pes planus] (acquired), unspecified foot; M47.897 Other spondylosis, lumbosacral region; I87.2 Venous insufficiency (chronic) (peripheral); N40.1 Benign prostatic hyperplasia with lower urinary tract symptoms; Z79.899 Other long term (current) drug therapy
CPT/HCPCS: 36415; 80053; 85025

== ENCOUNTER → 2019-12-09 | Outpatient (CLI) | payer MEDICARE, SELFPAY ==
[2019-08-19 15:22] VITALS: BMI 24.5
[2019-10-14 15:38] VITALS: BMI 24.6
[2019-12-09] MEDS: 0.9% NaCl IVPB Med Flush (250 mL) 15 ML IV (15:42)
[2019-12-09 15:51] VITALS: BP 118/60; PULSE 61; RESP 16; TEMP 36.5; O2SAT 98; BMI 25.0
[2019-12-09] MEDS: 0.9% NaCl Peripheral Flush Adult/Peds IV (15:51)
== END | disposition home or self-care (01) ==
LOC: MEDOUTP 15:09
PROVIDERS: PCP Family Medicine; Referring Provider Internal Medicine Rheumatology; Visit Provider Internal Medicine Rheumatology
DX: M05.79 Rheumatoid arthritis with rheumatoid factor of multiple sites without organ or systems involvement (principal)
CPT/HCPCS: 96365; J7050; A4216; J1602

== ENCOUNTER → 2020-02-10 | Outpatient (CLI) | payer MEDICARE, SELFPAY ==
[2019-10-14 15:38] VITALS: BMI 24.6
[2019-12-09 15:51] VITALS: BMI 25.0
[2020-02-10] MEDS: 0.9% NaCl IVPB Med Flush (250 mL) 15 ML IV (15:29)
[2020-02-10] MEDS: 0.9% NaCl Peripheral Flush Adult/Peds IV (15:29)
[2020-02-10 15:32] VITALS: BP 107/63; PULSE 66; RESP 16; TEMP 37.2; O2SAT 97; BMI 24.7
[2020-02-10 17:02] VITALS: BP 119/63; PULSE 68; RESP 16; O2SAT 100
== END | disposition home or self-care (01) ==
LOC: MEDOUTP 14:58
PROVIDERS: PCP Family Medicine; Referring Provider Family Medicine; Visit Provider Internal Medicine Rheumatology
DX: M05.79 Rheumatoid arthritis with rheumatoid factor of multiple sites without organ or systems involvement (principal)
CPT/HCPCS: 96365; J7050; A4216; J1602

== ENCOUNTER → 2020-02-19 16:05 | Outpatient (CLI) | payer MEDICARE, SELFPAY ==
[2020-02-10 15:32] VITALS: BMI 24.7
[2020-02-19 18:13] LABS: Absolute Neutrophil Count 5.9 X10^3/uL (2.0-7.7); Basophil# 0.03 X10^3/uL; Basophil% 0.4 % (0-1); Eosinophil# 0.02 X10^3/uL; Eosinophils% 0.3 % (0-5); Hemoglobin 13.5 g/dL (13.0-16.5); Lymphocyte % 8.6 % (19-41); Mean Corp Hgb Conc 32.9 g/dL (32-36); Mean Corpuscular Hgb 32.3 pg (27.0-32.0); Mean Corpuscular Volume 98.1 fL (80-94); Mean Platelet Vol. 10.2 fl (6.2-12.0); Monocyte# 0.35 X10^3/uL; NRBC Flagged by Analyzer 0 % (0-5); Neutrophil # 5.92 X10^3/uL (2.7-7.7); Neutrophil % 85.4 % (47-70); POSITIVE DIFFERENTIAL YES; Platelet Count 210 K/mm3 (150-450); RBC Distribution Width CV 13.9 % (11.6-14.6); RBC Distribution Width SD 50.6 fl (35.1-43.9); Red Blood Count 4.18 M/mm3 (4.6-6.2); White Blood Count 6.9 K/mm3 (4.4-11.0)
[2020-02-19 18:21] LABS: Differential Indicated SCAN CRITERIA MET
[2020-02-19 18:42] LABS: Differential Comment SCANNED
[2020-02-19 18:45] LABS: ALB/GLOB Ratio 1.3 RATIO (0.9-2.4); AST(SGOT) 22 U/L (15-37); Alanine Aminotransfer ALT/SGPT 29 U/L (16-61); Albumin, Serum 3.8 g/dL (3.2-5.0); Alkaline Phosphatase 48 U/L (45-117); Anion Gap 6 (5-15); BUN 10 mg/dL (7-18); BUN/Creat Ratio 11.9 RATIO (10-20); Calcium,Total 8.9 mg/dL (8.5-10.1); Chloride 106 mmol/L (98-107); Creatinine, Serum 0.84 mg/dL (0.70-1.30); EST Glomerular Filtration Rate 94 mL/min (>60); Est Glom Filt Rate - Afr Amer 113 mL/min (>60); Globulin 2.9 g/dL (2.2-4.2); Glucose 109 mg/dL (74-106); Potassium 3.7 mmol/L (3.5-5.1); Protein, Total 6.7 g/dL (6.4-8.2); Sodium Level 138 mmol/L (136-145)
== END ==
PROVIDERS: PCP Family Medicine; Referring Provider Internal Medicine Rheumatology; Visit Provider Internal Medicine Rheumatology
DX: M05.70 Rheumatoid arthritis with rheumatoid factor of unspecified site without organ or systems involvement (principal); Z79.899 Other long term (current) drug therapy; M25.512 Pain in left shoulder; M17.0 Bilateral primary osteoarthritis of knee; G47.00 Insomnia, unspecified; M21.40 Flat foot [pes planus] (acquired), unspecified foot; M47.897 Other spondylosis, lumbosacral region; I87.2 Venous insufficiency (chronic) (peripheral); N40.1 Benign prostatic hyperplasia with lower urinary tract symptoms
CPT/HCPCS: 36415; 80053; 85025

== ENCOUNTER → 2020-04-06 14:55 | Outpatient (CLI) | payer MEDICARE, SELFPAY ==
[2019-12-09 15:51] VITALS: BMI 25.0
[2020-04-06 10:18] VITALS: BMI 23.0
[2020-04-13 14:17] VITALS: BP 118/67; PULSE 70; RESP 14; TEMP 36.6; O2SAT 99; BMI 24.9
[2020-04-13] MEDS: 0.9% NaCl Peripheral Flush Adult/Peds IV (14:45)
[2020-04-13] MEDS: 0.9% NaCl IVPB Med Flush (250 mL) 15 ML IV (14:49)
== END ==
LOC: MEDOUTP 14:57
PROVIDERS: PCP Family Medicine; Referring Provider Internal Medicine Rheumatology; Visit Provider Internal Medicine Rheumatology
DX: M05.70 Rheumatoid arthritis with rheumatoid factor of unspecified site without organ or systems involvement (principal)
CPT/HCPCS: 96365; 96413; J7050; A4216; J1602

== ENCOUNTER 2020-05-07 14:14 | Inpatient (IN) | payer MEDICARE, SELFPAY ==
[2020-04-06 10:18] VITALS: BMI 23.0
[2020-04-13 14:17] VITALS: BMI 24.9
--- NOTE | 2020-04-27 12:25 | EKG12_ITS ---
Test Reason : PRE OP Blood Pressure : / mmHG Vent. Rate : 077 BPM Atrial Rate : 077 BPM P-R Int : 186 ms QRS Dur : 086 ms QT Int : 384 ms P-R-T Axes : 048 001 065 degrees QTc Int : 434 ms Sinus rhythm with Premature atrial complexes Low voltage QRS Borderline ECG Confirmed by AMOR PERALES, PER ([id number]), writer editor DEMARCUS CAMARENA ([id number]) on 04/28/2020 9:26:01 AM Referred By: Vlad Alfaro Confirmed By:PER CHINCHILLA MD
[2020-04-27 16:44] LABS: Absolute Lymphocyte Count 0.66 X10^3/uL (0.83-4.51); Absolute Neutrophil Count 6.2 X10^3/uL (2.0-7.7); Basophil# 0.03 X10^3/uL; Basophil% 0.4 % (0-1); Eosinophil# 0.01 X10^3/uL; Eosinophils% 0.1 % (0-5); Hematocrit 46.3 % (40-54); Hemoglobin 14.8 g/dL (13.0-16.5); Lymphocyte # 0.66 X10^3/ul (4.0); Lymphocyte % 9.3 % (19-41); Mean Corpuscular Hgb 31.6 pg (27.0-32.0); Mean Corpuscular Volume 98.9 fL (80-94); Mean Platelet Vol. 9.6 fl (6.2-12.0); Monocyte# 0.26 X10^3/uL; Monocyte% 3.6 % (0-10); NRBC Flagged by Analyzer 0 % (0-5); Neutrophil # 6.16 X10^3/uL (2.7-7.7); Neutrophil % 86.5 % (47-70); Platelet Count 211 K/mm3 (150-450); RBC Distribution Width CV 13.8 % (11.6-14.6); RBC Distribution Width SD 50.2 fl (35.1-43.9); Red Blood Count 4.68 M/mm3 (4.6-6.2); White Blood Count 7.1 K/mm3 (4.4-11.0)
[2020-04-27 16:54] LABS: Prothrombin Time (Protime)PT. 12.4 SECONDS (11.7-14.9)
[2020-04-27 16:55] LABS: Partial Thromboplast Time 28.5 Seconds (24.1-36.2)
[2020-04-27 17:55] LABS: AST(SGOT) 22 U/L (15-37); Alanine Aminotransfer ALT/SGPT 30 U/L (16-61); Albumin, Serum 4.2 g/dL (3.2-5.0); Alkaline Phosphatase 58 U/L (45-117); Bilirubin, Direct 0.16 mg/dL (0.00-0.30); Globulin 3.3 g/dL (2.2-4.2); Magnesium 2.2 mg/dL (1.6-2.6); Protein, Total 7.5 g/dL (6.4-8.2)
[2020-04-27 17:58] LABS: Anion Gap 4 (5-15); BUN 10 mg/dL (7-18); BUN/Creat Ratio 11.6 RATIO (10-20); Calcium,Total 9.2 mg/dL (8.5-10.1); Chloride 105 mmol/L (98-107); Creatinine, Serum 0.86 mg/dL (0.70-1.30); EST Glomerular Filtration Rate 91 mL/min (>60); Est Glom Filt Rate - Afr Amer 110 mL/min (>60); Glucose 112 mg/dL (74-106); Potassium 3.9 mmol/L (3.5-5.1); Sodium Level 139 mmol/L (136-145)
[2020-04-27 18:22] LABS: HIV - WCH Non-Reactive (Nonreactive)
[2020-04-29 05:07] LABS: HEPATITIS B SURFACE AG Negative (Negative); Hepatitis A AB, Total Negative (Negative); Hepatitis A IgM Antibody Negative (Negative); Hepatitis B Core AB IgM Negative (Negative); Hepatitis B Core Ab Total Negative (Negative); Hepatitis C Ab <0.1 s/co ratio (0.0-0.9)
[2020-04-29 16:00] LABS: Hep B Surface Antibodies Non Reactive (.)
[2020-05-07] VITALS (14 sets, daily range): BP systolic 103–137; BP diastolic 49–77; PULSE 66–98; RESP 12–18; TEMP 36.4–37.4; O2SAT 94–100; BMI 24.0
--- NOTE | 2020-05-07 06:00 | HP_ITS ---
Intake Intake Visit Reasons: lumbar spine Chief Complaint: sIMPONI Allergies No Known Allergies Allergy (Verified 04/20/20 14:28) [facility] Medical History (Updated 04/06/20 @ 10:53 by Tracy Gottlieb) Abnormal EKG (Chronic) Abnormal echocardiogram (Chronic) Left ventricular hypokinesis (Chronic) Leg pain, bilateral (Chronic) Edema (Chronic) H/o finger stitches (Acute) H/o three feet of intestines removed (Acute) Hemorrhoids (Acute) PAT (paroxysmal atrial tachycardia) (Acute) SVT (supraventricular tachycardia) (Acute) Back pain (Chronic) Rheumatoid arthritis (Chronic) Surgical History (Updated 04/06/20 @ 10:50 by Tracy Gottlieb) H/O colonoscopy (Acute) H/O umbilical hernia repair (Resolved) S/P appendectomy (Resolved) S/P cataract surgery (Resolved) S/P hemorrhoidectomy (Resolved) S/P inguinal hernia repair (Resolved) S/P laparoscopic cholecystectomy (Resolved) S/P left colectomy (Resolved) S/P rotator cuff repair (Resolved) S/P vasectomy (Resolved) Family History Father CVA (cerebral vascular accident) Brother CAD (coronary artery disease) CABG X 3 Mother CVA (cerebral vascular accident) Grandfather Cancer prostate Social History (Updated 04/27/20 @ 14:[address] Vlad Alfaro DO) Smoking Status: Former smoker how long ago did patient quit smokin years ago alcohol intake: never substance use type: does not use diet: low salt caffeine: Yes Type: coffee Number of servings: 4 HPI lumbar spine: Details: Parts of this documentation were recorded by a scribe, this documentation accurately reflects the service provided and the decisions made by me, Dr. Vlad Alfaro DO 04/27/20 1317. BRYCE ANN is a 79 year old M here today for his pre-op appointment. Patient re-signed consent today d/t last one will be out of the date range of 30 days. Patient has already received surgical information, soap and the three ensure drinks. Mr. Ann is here for follow-up and for his preop. We discussed the surgery at length how extensive it would be that would include L3-4 L4-5 and L2-3. I told him the surgery would take every bit of 3 hours. 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 We also spoke of possible risks and complications among those possibility of , paralysis infection meningitis failure to relieve symptoms blood clot in legs blood clot in the lungs microinfarction stroke and dural leak among others. I answered all his questions I will see him again at surgery. Coding Level of Care Code Off vis,est,level 2 Time Spent (min) 20
[2020-05-07] MEDS: Acetaminophen 500 MG Tablet 1000 MG PO (06:27)
[2020-05-07] MEDS: Lactated Ringers 1,000 ML 75 ML IV ×3 (06:30→22:10)
[2020-05-07 06:45] LABS: Bedside Glucose 84 mg/dL (70-110)
--- NOTE | 2020-05-07 07:30 | RAD_ITS ---
STUDY: X-RAY - LUMBAR SPINE REASON FOR EXAM: Male, 79 years old. DECOMPRESSION LAMINECTOMY L2-L5 TECHNIQUE: 1 view(s) of the lumbar spine were obtained. COMPARISON: None FINDINGS: Intraoperative imaging provided for localization. The metallic probe is overlying the posterior aspect of the L4-L5 disc space level. RAD/Spine 1 View Any Level IMPRESSION: The metallic localization probe is seen overlying the posterior aspect of the L4-L5 disc space level. Electronically Signed: Nicko Yoon, at 10:30 EST , Service support ,
[2020-05-07] MEDS: Cefazolin 2 GM in 0.9% Normal Saline 100 ML IV (07:42)
[2020-05-07] MEDS: Lactated Ringers 1,000 ML 200 ML IV (08:45)
[2020-05-07] MEDS: THROMBIN (RECOMBINANT) 20,000 UNIT VIAL 20000 UNIT TOPICAL (09:29)
[2020-05-07] MEDS: Thrombin 5,000 IU Kit (PSA) 5,000 IU Vial 5000 IU ×2 (10:00→11:07)
--- NOTE | 2020-05-07 12:22 | OP.PCM_ITS ---
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 Alfaro bacteriology research assistant: Alverto ANNA Anesthesia: [facility] Estimated blood loss: 300 cc Drains: Medium Hemovac Complications: None Patient was taken to the OR where he was placed under general endotracheal anesthesia. A Lion catheter was inserted. Neuro monitoring then set the patient up for the procedure. Was then placed in the prone position on the Maico frame. After appropriate positioning with care to protect his bony promi nences ulnar nerves of both elbows the brachial plexus bilaterally his genitalia and his facial features and cervical spine the back was prepped and draped in standard fashion. A longitudinal incision centered over the L2-L4 area. Again on the left side elevating the paravertebral muscles off the lamina of 4 we then took an intraoperative x-ray with a marker in place to assure that we were indee d at 4 5. Continued elevating the paravertebral muscles off the lamina of 3 and eventually of the lamina of 2 noted we had brisk and constant bleeding throughout the procedure. This is a problem with the bleeding throughout the procedure the bone bled soft tissues blood etc. We then packed to the left side after thorough irrigation I then opened the right side elevating the paravertebral muscles of the lamina for the lamina of 3 and the lamina of L2. Again bleeders were controlled as best as possible with cautery and in and eventually with bone wax over the bleeding cancellous bone. And began at the bottom removing the spinous process of L4 with double-action rongeurs and then I removed part of the spinous process of L3 in the same fashion. Using the double-action rongeurs were able to thin down the lamina in its midline and then I elevated the ligamentum flavum off the underside of the lamina of L4 on both sides with sharp small curettes. Anatomy was then carried out with 45 degree Kerrison rongeurs. I split the ligamentum flavum in the middle and began its removal also as this was part of the stenotic process using the Kerrison rongeurs of different sizes we were able to slowly began removal of the ligamentum flavum on both sides. Especially decompressed the right side as it was easier to do that from a left-sided position. Moved the rest of the spinous process of L4 and in the process of the spinous process of L3. In the lamina was thinned out with double-action rongeurs and again I released the ligamentum flavum off the underside of lamina of L3 and began the laminectomy process this was carried out with 45 degree Kerrison rongeurs. Then we remove the ligamentum flavum in the same fashion and the isthmus between L4 and L3 was likewise removed using cottonoids to protect the dura remove removed in its entirety. In the right side was completely decompressed first remove the spinous process of L2 the same fashion and used curettes to release ligamentum flavum off the midline again the lamina was thinned out with double-action rongeurs and the laminectomy was carried out with 45 to be Kerrison rongeurs. The ligamentum flavum was then removed in the same fashion as before with 45 degree Kerrison rongeurs the bony bridge or isthmus between L2 and L3 was then removed again using a cottonoids to protect the dura was done with 45 degree Kerrison rongeurs I then decompressed the remaining ligamentum flavum off the lateral recesses at all 3 levels. I did copiously repeatedly throughout the procedure. Then moved to the opposite side of the table that is to the patient's right side and finished the decompression on the left in the same fashion with 45 Kerrison rongeurs remove the remaining ligamentum flavum lateralward removing the remaining bony stenosis this was done at all 3 levels. Packed the area with thrombin-soaked Gelfoam as it was reasonably brisk bleeding throughout but after packing it we were able to slow down the bleeding significantly we then used 2 amnionic membranes to cover the entire open dura to prevent adhesions in the future. Gelfoam was then placed over the top of this a drain was inserted and closure was begun to close the lumbar fascia using [id number] suture with #1 Vicryl for closure of subcutaneous tissues with 2-0 Vicryl in interrupted fashion and skin was approximated using skin clips well dressings were then applied the drain was secured and he was then moved to his hospital bed and taken to recovery in satisfactory condition this interoperative summary on Justo Rodriguez.
--- NOTE | 2020-05-07 13:52 | PCM.PN.HOSP ---
Reason for Visit: Consult for medical management: Subjective: 78-year-old male with chronic back pain presents for elective back surgery. Patient underwent decompression laminectomy of L4-5, L3-4, L2-3. He was seen in the immediate postoperative period. He was seen sitting up in a chair. Denied any new complaint. Denied any chest pain or dizziness or palpitations. Vitals/I&O's: Vital Signs Temp Pulse Resp BP Pulse Ox 97.6 F L 81 18 123/65 H 100 05/07/20 13:19 05/07/20 13:19 05/07/20 13:19 05/07/20 13:19 05/07/20 13:19 Oxygen Flow Rate (L/min) 6 Oxygen Delivery Method Simple Mask Weight: 61.7 kg Body Mass Index (BMI) 24.0 Intake and Output for Last 24 Hours 05/05/20 05/06/20 05/07/20 23:59 23:59 23:59 Intake Total 2213.5 / 2213.5 Output Total 1120 / 1120 Balance 1093.5 / 1093.5 General: Alert, Oriented x3, Cooperative, No apparent distress HEENT: Atraumatic, PERRLA, EOMI, Normocephalic Neck: Supple Lungs: Clear to auscultation, Normal air movement Cardiovascular: Regular rate, Regular Rhythm, Normal S1, Normal S2, No murmurs Abdomen: Bowel Sounds Present, Soft, Non Tender, Non-Distended, No Hepato-splenomegaly Extremities: No edema Skin: No rashes Musculoskeletal: Tenderness - over the mid back, dressing is intact Lymphatic: No Cervical, Supraclavicular, or Inguinal Adenopathy Neurological: Cranial nerves II-XII grossly intact, Neuro grossly intact Psych/Mental Status: Normal Affect, Appropriate Microbiology Past 72 Hours 05/05/20 14:35 Interface Orders SARS-CoV-2 Antigen (Rapid) - Final Laboratory Results 05/07/20 06:32: POC Glucose 84 Current Medications Diazepam (Diazepam 5 Mg Tablet) 5 mg PO Q6H PRN PRN PRN Reason: Muscle Spasms Enteral Nutritional Formula (Ensure Surgery 237 Ml Liquid) 237 ml PO TIDCM PATRICE Famotidine (Famotidine 20 Mg Tablet) 20 mg PO BID PATRICE Lactated Ringer's () 1,000 mls @ 75 mls/hr IV .[id number] PATRICE Last Admin: 05/07/20 12:00 Dose: 75 mls/hr Documented by: Cefazolin Sodium () 1 gm in 50 mls @ 100 mls/hr IV Q8H [facility] Stop: 05/08/20 00:29 Insulin Human Lispro (Insulin Lispro 100 Unit/Ml Insuln.Pen) 1 - 6 unit SC Q4H PRN PRN; Protocol PRN Reason: BG>/= 180, SEE PROTOCOL Stop: 05/07/20 18:00 Morphine Sulfate (Morphine 4 Mg/Ml Syringe) 2 - 4 mg IV Q2H PRN PRN PRN Reason: Pain Score 6-10 Morphine Sulfate (Morphine 2 Mg/Ml Syringe) 2 - 4 mg IV Q2H PRN PRN PRN Reason: Pain Score 6-10 Ondansetron HCl (Ondansetron 4 Mg/2 Ml Vial) 4 mg IV Q8H PRN PRN PRN Reason: NAUSEA Oxycodone HCl (Oxycodone 5 Mg Tablet) 2.5 - 5 mg PO Q4H PRN PRN PRN Reason: Pain Score 6-10 Senna/Docusate Sodium (Senna/Docusate Sodium 1 Tablet) 2 tablet PO BID [facility] Sodium Chloride (0.9% Nacl Peripheral Flush Adult/Peds) 5 - 15 ml IV UD PRN PRN Reason: SALINE FLUSH Zolpidem Tartrate (Zolpidem Tartrate 5 Mg Tablet) 5 mg PO QHS PRN PRN PRN Reason: INSOMNIA STROKE Vital Signs/Narrative: Vital Signs Temp Pulse Resp BP Pulse Ox 05/07/20 13:19 97.6 F L 81 18 123/65 H 100 05/07/20 13:16 78 18 126/69 H 100 05/07/20 13:00 78 12 116/58 L 99 05/07/20 12:45 80 18 127/69 H 100 05/07/20 12:30 80 16 137/71 H 100 05/07/20 12:16 76 16 137/76 H 100 05/07/20 12:03 98.0 F 80 16 119/66 99 Medical Necessity - Tobacco Use Smoking Status: Former smoker Tobacco Use: Non-smoker Assessment/Plan All Active Problems (Last Updated 04/06/20 @ 10:53 by Tracy Gottlieb) Recurrent umbilical hernia (Resolved) 1. POD #0 status post decompression laminectomy L4-5, L3-4, L2-3. His pain is controlled, continue on current pain regimen by neurosurgery Further wound management by neurosurgery. Home baclofen, Topamax on hold 2. Rheumatoid arthritis, on methotrexate, folic acid, golimumab, hydroxychloroquine May need to resume these medications later on when acceptable by neurosurgery Patient needs to follow-up in the outpatient. 3. H/o SVT, in NSR, EKG done in cardiology office shows normal sinus rhythm with occasional PACs 4. BPH, continue on Proscar 5. DVT PPx- SCDs per primary neurosurgery team Inpatient E&M: 42784 Subs Hosp L2
--- NOTE | 2020-05-07 14:08 | PCS.PANDOC ---
PANDEMIC DOCUMENTATION INITIATED: Date: 05/07/2020 Time: 2474
[2020-05-07] MEDS: Morphine 2 MG/ML Syringe IV ×2 (14:32→23:27)
[2020-05-07] MEDS: Cefazolin 1 GM/50 ML BAG IV ×2 (16:11→23:15)
[2020-05-07] MEDS: oxyCODONE 5 MG Tablet PO ×2 (16:16→21:19)
[2020-05-07] MEDS: Ensure Surgery 237 ML LIQUID PO (16:16)
--- NOTE | 2020-05-07 17:20 | NURSING ---
upon post-op check at 1600, this RN emptied hemovac and replaced to suction. noted that the hemovac was not retaining suction though and asked ELROY Pink to also assess hemovac. tubing and tape to back had not become dislodged and there was no apparent leaking site. Dr Alfaro on unit and was notified. he assessed and asked this RN to replace hemovac canister, this was completed but still not retaining vacuum. Dr Alfaro notified and no further orders.
[2020-05-07] MEDS: diazePAM 5 MG Tablet PO (18:45)
[2020-05-07] MEDS: Famotidine 20 MG Tablet PO (21:17)
[2020-05-07] MEDS: Senna/Docusate Sodium 1 Tablet 2 TABLET PO (21:17)
[2020-05-07 22:06] LABS: Hematocrit 36.2 % (40-54); Hemoglobin 12.1 g/dL (13.0-16.5)
[2020-05-07] MEDS: 0.9% NaCl Peripheral Flush Adult/Peds IV (23:28)
[2020-05-08] VITALS (7 sets, daily range): BP systolic 112–132; BP diastolic 53–73; PULSE 74–97; RESP 16–18; TEMP 36.7–38.7; O2SAT 93–97
[2020-05-08] MEDS: diazePAM 5 MG Tablet PO ×3 (02:03→15:26)
[2020-05-08] MEDS: oxyCODONE 5 MG Tablet PO ×4 (03:12→18:40)
[2020-05-08] MEDS: Ondansetron 4 MG/2 ML Vial IV (05:57)
[2020-05-08] MEDS: Morphine 2 MG/ML Syringe IV ×2 (05:57→19:51)
[2020-05-08 07:00] LABS: Hematocrit 34.5 % (40-54); Hemoglobin 11.6 g/dL (13.0-16.5)
--- NOTE | 2020-05-08 08:38 | PCM.PN.HOSP ---
Subjective: discomfort in back. Vitals/I&O's: Vital Signs Temp Pulse Resp BP Pulse Ox 37.7 C H 89 18 115/69 94 05/08/20 05:52 05/08/20 05:52 05/08/20 05:52 05/08/20 05:52 05/08/20 06:56 Oxygen Flow Rate (L/min) 6 Oxygen Delivery Method Room Air Weight: 61.7 kg Body Mass Index (BMI) 24.0 Intake and Output for Last 24 Hours 05/06/20 05/07/20 05/08/20 23:59 23:59 23:59 Intake Total 3469.75 / 3869.75 600 / 600 Output Total 1480 / 1830 1350 / 1350 Balance 1989.75 / 9.75 -750 / -750 General: Alert, No apparent distress HEENT: Atraumatic, Normocephalic Oral: Moist Mucosa, No Gingival or Mucosal Lesions/ Ulcerations Neck: No Nodes, Thyroid Normal Size and Texture Lungs: Clear to auscultation, Normal air movement, No rhonchi, No wheeze, No rales Cardiovascular: Regular rate, Regular Rhythm, Normal S1, Normal S2, No murmurs Abdomen: Bowel Sounds Present, Soft, Non Tender, Non-Distended, No Hepato-splenomegaly Extremities: No edema, No Calf Tenderness Psych/Mental Status: Normal Affect, Appropriate Microbiology Past 72 Hours 05/05/20 14:35 Interface Orders SARS-CoV-2 Antigen (Rapid) - Final Laboratory Results 05/07/20 21:48: Hgb 12.1 L, Hct 36.2 L 05/08/20 06:55: Hgb 11.6 L, Hct 34.5 L Current Medications Diazepam (Diazepam 5 Mg Tablet) 5 mg PO Q6H PRN PRN PRN Reason: Muscle Spasms Last Admin: 05/08/20 02:03 Dose: 5 mg Documented by: Enteral Nutritional Formula (Ensure Surgery 237 Ml Liquid) 237 ml PO TIDCM [facility] Last Admin: 05/07/20 16:16 Dose: 237 ml Documented by: Famotidine (Famotidine 20 Mg Tablet) 20 mg PO BID [facility] Last Admin: 05/07/20 21:17 Dose: 20 mg Documented by: Lactated Ringer's () 1,000 mls @ 75 mls/hr IV .[id number] [facility] Last Infusion: 12/10/20 23:50 Dose: 75 mls/hr Documented by: Morphine Sulfate (Morphine 4 Mg/Ml Syringe) 2 - 4 mg IV Q2H PRN PRN PRN Reason: Pain Score 6-10 Morphine Sulfate (Morphine 2 Mg/Ml Syringe) 2 - 4 mg IV Q2H PRN PRN PRN Reason: Pain Score 6-10 Last Admin: 05/08/20 05:57 Dose: 4 mg Documented by: Ondansetron HCl (Ondansetron 4 Mg/2 Ml Vial) 4 mg IV Q8H PRN PRN PRN Reason: NAUSEA Last Admin: 05/08/20 05:57 Dose: 4 mg Documented by: Oxycodone HCl (Oxycodone 5 Mg Tablet) 2.5 - 5 mg PO Q4H PRN PRN PRN Reason: Pain Score 6-10 Last Admin: 05/08/20 03:12 Dose: 5 mg Documented by: Senna/Docusate Sodium (Senna/Docusate Sodium 1 Tablet) 2 tablet PO BID [facility] Last Admin: 05/07/20 21:17 Dose: 1 tablet Documented by: Sodium Chloride (0.9% Nacl Peripheral Flush Adult/Peds) 5 - 15 ml IV UD PRN PRN Reason: SALINE FLUSH Last Admin: 05/07/20 23:28 Dose: 10 ml Documented by: Sodium Chloride (0.9% Saline Lock 10 Ml Syringe) 10 - 40 ml IV UD PRN PRN Reason: SALINE FLUSH Zolpidem Tartrate (Zolpidem Tartrate 5 Mg Tablet) 5 mg PO QHS PRN PRN PRN Reason: INSOMNIA STROKE Vital Signs/Narrative: Vital Signs Temp Pulse Resp BP Pulse Ox 05/08/20 06:56 94 05/08/20 05:52 37.7 C H 89 18 115/69 94 Medical Necessity - Tobacco Use Smoking Status: Former smoker Tobacco Use: Non-smoker Assessment/Plan All Active Problems (Last Updated 04/06/20 @ 10:53 by Tracy Gottlieb) Recurrent umbilical hernia (Resolved) 1. RA stable continue MTX, folic acid, HQN, golimumab: resume when ok with spine svc 2. BPH martinez removed on finasteride if has urinary difficulties, may need to consider tamsulosin 3. S/P laminectomy mgmt per spine surgery consider increasing oxycodone dosing if pain is uncontrolled with current regimen 4. VTE prophylaxis: SCDs No active medical issues. The Hospitalist service will follow peripherally. Inpatient E&M: 30563 Subs Hosp L2
[2020-05-08] MEDS: Famotidine 20 MG Tablet PO ×2 (09:14→21:38)
[2020-05-08] MEDS: Ensure Surgery 237 ML LIQUID PO ×2 (09:14→11:00)
[2020-05-08] MEDS: Senna/Docusate Sodium 1 Tablet 2 TABLET PO ×2 (09:14→21:38)
[2020-05-08] MEDS: Morphine 4 MG/ML Syringe IV ×4 (11:00→17:35)
[2020-05-08] MEDS: 0.9% NaCl Peripheral Flush Adult/Peds IV ×4 (11:01→17:36)
[2020-05-08] MEDS: Lactated Ringers 1,000 ML 75 ML IV (11:03)
--- NOTE | 2020-05-08 14:53 | PCM.PN.BLA ---
Progress Note Postop day #1: Patient is seen on rounds. He is complaining of low back pain is expected of course after 3 level decompression. Logically is intact he can move his toes he has no dysesthesias can raise his legs. Change his dressing. Note that the Hemovac drain was not working and the reason became apparent and that when we remove the dressing only half an inch of the drain was still in his back. Is why it was decompressed. There was no swelling of the incision incision look good. We will ask physical therapy to see him so he can start some in bed exercises. At that he would normally have gone home tomorrow perhaps but unfortunately his family that is the daughter and her family are in quarantine because of Covid and thus they would not be able to take care of him as they have planned. Will consider the transitional care unit. However the sling the day will be impossible to do thus this will have to be done on Monday. But he is in enough pain that it will probably be then before he can go home anyway. Will see him again tomorrow at rounds.
--- NOTE | 2020-05-08 15:15 | CASEMGMT ---
Social Work Note KAITY updated by physician that pt will likely need TCU at discharge as pt's family is no longer able to assist pt at home. SW in to speak with pt. SW introduced self and role at [facility]. Pt is alert and orientated. SW spoke with pt regarding discharge plans. Pt states agreeable to TCU. Pt confirms that the family that he was going to stay with have to be insolation due to COVID. SW provided pt with list of SNF that accept pt's insurance. Pt agreeable to [facility] TCU. KAITY explained that pt will be at [facility] through weekend as pre-cert will not be obtained, no PT/OT yet to submit for pre-cert. KAITY placed a call to [facility] in TCU. [facility] confirms TCU will have a bed for pt. SW informed [facility] that pt has [employer] insurance. KAITY updated [facility] that PT/OT notes are not available at this time. KAITY informed [facility] that if pt remains in observation status then she submits pre-cert but if pt switches to inpatient then this worker has to submit initial approval first and then pre-cert will be submitted. [facility] states understanding, has pt on TCU list. Plan: Likely TCU pending pre-cert Joslyn Barton INSTALL AND REPAIR TECHNICIAN, PLANOGRAPH OPERATOR
[2020-05-08] MEDS: Acetaminophen 325 MG Tablet 650 MG PO (15:56)
[2020-05-09] MEDS: diazePAM 5 MG Tablet PO ×3 (00:02→15:28)
[2020-05-09] MEDS: oxyCODONE 5 MG Tablet PO ×6 (00:03→21:51)
[2020-05-09] MEDS: Lactated Ringers 1,000 ML 75 ML IV ×2 (00:13→13:26)
[2020-05-09 03:25] VITALS: BP 121/63; PULSE 78; RESP 16; TEMP 37.3; O2SAT 97
[2020-05-09] MEDS: Acetaminophen 325 MG Tablet 650 MG PO ×4 (04:02→21:50)
[2020-05-09 07:15] VITALS: O2SAT 95
[2020-05-09] MEDS: Ensure Surgery 237 ML LIQUID PO ×3 (08:51→17:38)
[2020-05-09 09:20] VITALS: BP 93/47; PULSE 91; RESP 16; TEMP 36.7; O2SAT 97
[2020-05-09] MEDS: Senna/Docusate Sodium 1 Tablet 2 TABLET PO ×2 (09:26→21:53)
[2020-05-09] MEDS: Famotidine 20 MG Tablet PO ×2 (09:26→21:53)
[2020-05-09 11:00] VITALS: PULSE 68
--- NOTE | 2020-05-09 11:41 | PN_ITS ---
Progress Note Postoperative day #2: Michael is resting comfortably. He has been up likely with therapy but he has had a little bit of a hard time with it because of his back pain. I explained to him that this will improve over time. Neurologically he is intact. He says that he had some foot pain which is exactly the same kind of foot pain he has had for years at home. No leg pain. He is alert and well- oriented. Dressing is dry. I will see him again tomorrow. On Monday he will be transferred to the transitional care unit. STROKE Vital Signs/Narrative: Vital Signs Temp Pulse Resp BP Pulse Ox 05/09/20 09:20 98.1 F 91 16 93/47 L 97
--- NOTE | 2020-05-09 13:25 | PN_ITS ---
Subjective: Eating some. No dysuria. Vitals/I&O's: Vital Signs Temp Pulse Resp BP Pulse Ox 36.7 C 91 16 93/47 L 97 05/09/20 09:20 05/09/20 09:20 05/09/20 09:20 05/09/20 09:20 05/09/20 09:20 Oxygen Flow Rate (L/min) 6 Oxygen Delivery Method Room Air Weight: 61.7 kg Body Mass Index (BMI) 24.0 Intake and Output for Last 24 Hours 05/07/20 05/08/20 05/09/20 23:59 23:59 23:59 Intake Total 3469.75 / 3869.75 2463.75 / 2963.75 1507.5 / 1507.5 Output Total 1480 / 1830 3625 / 4000 1050 / 1050 Balance 1989.75 / 2039.75 -1161.25 / -1036.25 457.5 / 457.5 General: Alert, No apparent distress HEENT: Atraumatic, Normocephalic Psych/Mental Status: Normal Affect, Appropriate Current Medications Acetaminophen (Acetaminophen 325 Mg Tablet) 650 mg PO Q4H PRN PRN PRN Reason: HEADACHE/FEVER (T>100F) Last Admin: 05/09/20 04:02 Dose: 650 mg Documented by: Diazepam (Diazepam 5 Mg Tablet) 5 mg PO Q6H PRN PRN PRN Reason: Muscle Spasms Last Admin: 05/09/20 08:48 Dose: 5 mg Documented by: Enteral Nutritional Formula (Ensure Surgery 237 Ml Liquid) 237 ml PO TIDCM [facility] Last Admin: 05/09/20 12:05 Dose: 237 ml Documented by: Famotidine (Famotidine 20 Mg Tablet) 20 mg PO BID [facility] Last Admin: 05/09/20 09:26 Dose: 20 mg Documented by: Lactated Ringer's () 1,000 mls @ 75 mls/hr IV .[id number] [facility] Last Admin: 05/09/20 00:13 Dose: 75 mls/hr Documented by: Morphine Sulfate (Morphine 4 Mg/Ml Syringe) 2 - 4 mg IV Q2H PRN PRN PRN Reason: Pain Score 6-10 Last Admin: 05/08/20 17:35 Dose: 4 mg Documented by: Morphine Sulfate (Morphine 2 Mg/Ml Syringe) 2 - 4 mg IV Q2H PRN PRN PRN Reason: Pain Score 6-10 Last Admin: 05/08/20 19:51 Dose: 4 mg Documented by: Ondansetron HCl (Ondansetron 4 Mg/2 Ml Vial) 4 mg IV Q8H PRN PRN PRN Reason: NAUSEA Last Admin: 05/08/20 05:57 Dose: 4 mg Documented by: Oxycodone HCl (Oxycodone 5 Mg Tablet) 2.5 - 5 mg PO Q4H PRN PRN PRN Reason: Pain Score 6-10 Last Admin: 05/09/20 08:49 Dose: 5 mg Documented by: Senna/Docusate Sodium (Senna/Docusate Sodium 1 Tablet) 2 tablet PO BID [facility] Last Admin: 05/09/20 09:26 Dose: 2 tablet Documented by: Sodium Chloride (0.9% Nacl Peripheral Flush Adult/Peds) 5 - 15 ml IV UD PRN PRN Reason: SALINE FLUSH Last Admin: 05/08/20 17:36 Dose: 10 ml Documented by: Sodium Chloride (0.9% Saline Lock 10 Ml Syringe) 10 - 40 ml IV UD PRN PRN Reason: SALINE FLUSH Zolpidem Tartrate (Zolpidem Tartrate 5 Mg Tablet) 5 mg PO QHS PRN PRN PRN Reason: INSOMNIA Medical Necessity - Tobacco Use Smoking Status: Former smoker Tobacco Use: Non-smoker Assessment/Plan All Active Problems (Last Updated 04/06/20 @ 10:53 by Tracy Gottlieb) Recurrent umbilical hernia (Resolved) 1. RA * stable * continue MTX, folic acid, HQN, golimumab: resume when ok with spine svc 2. BPH * martinez removed * on finasteride * if has urinary difficulties, may need to consider tamsulosin 3. S/P laminectomy * mgmt per spine surgery * consider increasing oxycodone dosing if pain is uncontrolled with current regimen 4. VTE prophylaxis: SCDs No active medical issues. The Hospitalist service will follow peripherally. Inpatient E&M: [id number] [facility] Hosp L1
[2020-05-09 15:19] VITALS: BP 101/42; PULSE 100; RESP 16; TEMP 37.9; O2SAT 100
[2020-05-09 20:35] VITALS: BP 91/53; PULSE 61; RESP 16; TEMP 37.3; O2SAT 95
[2020-05-09] MEDS: Zolpidem Tartrate 5 MG Tablet PO (21:51)
[2020-05-10] VITALS (10 sets, daily range): BP systolic 82–109; BP diastolic 54–74; PULSE 53–116; RESP 16–18; TEMP 36.6–37; O2SAT 95–99
[2020-05-10] MEDS: Lactated Ringers 500 ML 999 ML IV (02:13)
[2020-05-10] MEDS: oxyCODONE 5 MG Tablet PO ×5 (02:52→22:06)
[2020-05-10] MEDS: Acetaminophen 325 MG Tablet 650 MG PO ×5 (02:52→22:05)
[2020-05-10] MEDS: Lactated Ringers 1,000 ML 75 ML IV ×2 (08:11→22:02)
[2020-05-10] MEDS: Ensure Surgery 237 ML LIQUID PO ×2 (08:11→16:59)
--- NOTE | 2020-05-10 08:28 | PCM.PN.HOSP ---
Subjective: Noted some dark urine. Continues to drink clears. BM yesterday. Still with swelling in ankles. Vitals/I&O's: Vital Signs Temp Pulse Resp BP Pulse Ox 36.8 C 72 16 109/74 95 05/10/20 04:11 05/10/20 04:11 05/10/20 04:11 05/10/20 04:11 05/10/20 04:11 Oxygen Flow Rate (L/min) 6 Oxygen Delivery Method Room Air Weight: 61.7 kg Body Mass Index (BMI) 24.0 Intake and Output for Last 24 Hours 05/08/20 05/09/20 05/10/20 23:59 23:59 23:59 Intake Total 2463.75 / 2963.75 3338.75 / 3638.75 2200 / 2200 Output Total 3625 / 4000 2700 / 2950 700 / 700 Balance -1161.25 / -1036.25 638.75 / 688.75 1500 / 1500 General: Alert, No apparent distress HEENT: Atraumatic, Normocephalic Oral: Moist Mucosa, No Gingival or Mucosal Lesions/ Ulcerations Neck: No Nodes, Thyroid Normal Size and Texture Lungs: Clear to auscultation, Normal air movement, No rhonchi, No wheeze, No rales Cardiovascular: Regular rate, Regular Rhythm, Normal S1, Normal S2, No murmurs Abdomen: Bowel Sounds Present, Soft, Non Tender, Non-Distended, No Hepato-splenomegaly Extremities: No edema, No Calf Tenderness Current Medications Acetaminophen (Acetaminophen 325 Mg Tablet) 650 mg PO Q4H PRN PRN PRN Reason: HEADACHE/FEVER (T>100F) Last Admin: 05/10/20 06:54 Dose: 650 mg Documented by: Diazepam (Diazepam 5 Mg Tablet) 5 mg PO Q6H PRN PRN PRN Reason: Muscle Spasms Last Admin: 05/09/20 15:28 Dose: 5 mg Documented by: Enteral Nutritional Formula (Ensure Surgery 237 Ml Liquid) 237 ml PO TIDCM [facility] Last Admin: 05/10/20 08:11 Dose: 237 ml Documented by: Famotidine (Famotidine 20 Mg Tablet) 20 mg PO BID [facility] Last Admin: 05/09/20 21:53 Dose: 20 mg Documented by: Lactated Ringer's () 1,000 mls @ 75 mls/hr IV .[id number] [facility] Last Admin: 05/10/20 08:11 Dose: 75 mls/hr Documented by: Morphine Sulfate (Morphine 4 Mg/Ml Syringe) 2 - 4 mg IV Q2H PRN PRN PRN Reason: Pain Score 6-10 Last Admin: 05/08/20 17:35 Dose: 4 mg Documented by: Morphine Sulfate (Morphine 2 Mg/Ml Syringe) 2 - 4 mg IV Q2H PRN PRN PRN Reason: Pain Score 6-10 Last Admin: 05/08/20 19:51 Dose: 4 mg Documented by: Ondansetron HCl (Ondansetron 4 Mg/2 Ml Vial) 4 mg IV Q8H PRN PRN PRN Reason: NAUSEA Last Admin: 05/08/20 05:57 Dose: 4 mg Documented by: Oxycodone HCl (Oxycodone 5 Mg Tablet) 2.5 - 5 mg PO Q4H PRN PRN PRN Reason: Pain Score 6-10 Last Admin: 05/10/20 06:53 Dose: 5 mg Documented by: Senna/Docusate Sodium (Senna/Docusate Sodium 1 Tablet) 2 tablet PO BID [facility] Last Admin: 05/09/20 21:53 Dose: 2 tablet Documented by: Sodium Chloride (0.9% Nacl Peripheral Flush Adult/Peds) 5 - 15 ml IV UD PRN PRN Reason: SALINE FLUSH Last Admin: 05/08/20 17:36 Dose: 10 ml Documented by: Sodium Chloride (0.9% Saline Lock 10 Ml Syringe) 10 - 40 ml IV UD PRN PRN Reason: SALINE FLUSH Zolpidem Tartrate (Zolpidem Tartrate 5 Mg Tablet) 5 mg PO QHS PRN PRN PRN Reason: INSOMNIA Last Admin: 05/09/20 21:51 Dose: 5 mg Documented by: Medical Necessity - Tobacco Use Smoking Status: Former smoker Tobacco Use: Non-smoker Assessment/Plan All Active Problems (Last Updated 04/06/20 @ 10:53 by Tracy Gottlieb) Recurrent umbilical hernia (Resolved) 1. RA stable continue MTX, folic acid, HQN, golimumab: resume when ok with spine svc 2. BPH martinez removed on finasteride dark urine noted by patient. Encouraged to drink more. If diet can be advanced and patient tolerates, IVF can be dc'd 3. S/P laminectomy mgmt per spine surgery consider increasing oxycodone dosing if pain is uncontrolled with current regimen 4. hypotension transient BP of 82/54, otherwise has been unremarkable currently, patient appears well. No additional work up needed at this time. 5. VTE prophylaxis: SCDs Medically stable for discharge. The Hospitalist service will follow peripherally. Inpatient E&M: [id number] Subs Hosp L2
[2020-05-10] MEDS: Famotidine 20 MG Tablet PO ×2 (09:09→22:06)
[2020-05-10] MEDS: 0.9% Normal Saline 1,000 ML 999 ML IV (09:42)
[2020-05-10 17:27] LABS: Absolute Lymphocyte Count 1.05 X10^3/uL (0.83-4.51); Absolute Neutrophil Count 5.7 X10^3/uL (2.0-7.7); Basophil# 0.02 X10^3/uL; Basophil% 0.3 % (0-1); Eosinophil# 0.09 X10^3/uL; Eosinophils% 1.2 % (0-5); Hematocrit 34.2 % (40-54); Hemoglobin 11.2 g/dL (13.0-16.5); Lymphocyte # 1.05 X10^3/ul (4.0); Lymphocyte % 13.7 % (19-41); Mean Corp Hgb Conc 32.7 g/dL (32-36); Mean Corpuscular Hgb 32.3 pg (27.0-32.0); Mean Corpuscular Volume 98.6 fL (80-94); Monocyte# 0.83 X10^3/uL; Monocyte% 10.8 % (0-10); NRBC Flagged by Analyzer 0 % (0-5); Neutrophil # 5.66 X10^3/uL (2.7-7.7); Neutrophil % 73.6 % (47-70); Platelet Count 142 K/mm3 (150-450); RBC Distribution Width CV 13.4 % (11.6-14.6); RBC Distribution Width SD 48.1 fl (35.1-43.9); Red Blood Count 3.47 M/mm3 (4.6-6.2); White Blood Count 7.7 K/mm3 (4.4-11.0)
[2020-05-10] MEDS: Zolpidem Tartrate 5 MG Tablet PO (22:06)
[2020-05-11] VITALS (27 sets, daily range): BP systolic 94–139; BP diastolic 63–104; PULSE 115–189; RESP 12–22; TEMP 36.6–37; O2SAT 96–99
[2020-05-11] MEDS: oxyCODONE 5 MG Tablet PO ×5 (02:29→22:53)
[2020-05-11] MEDS: Acetaminophen 325 MG Tablet 650 MG PO ×4 (02:29→20:12)
--- NOTE | 2020-05-11 09:23 | CASEMGMT ---
Social Work Note KAITY placed a call to [facility] in TCU, [facility] states TCU will still need pre-cert. [facility] states if pre-cert is obtained today, pt can admit to TCU today. Pt will need another COVID test. KAITY faxed referral to [facility]. [facility] and left message regarding referral. Plan: TCU pending pre-cert. Joslyn Barton LICENSE REGISTRATION EXAMINER, SUPERVISOR MENDING
--- NOTE | 2020-05-11 09:43 | EKG12_ITS ---
Test Reason : Blood Pressure : / mmHG Vent. Rate : 159 BPM Atrial Rate : 122 BPM P-R Int : 000 ms QRS Dur : 076 ms QT Int : 292 ms P-R-T Axes : 000 -03 029 degrees QTc Int : 474 ms Atrial fibrillation Low Voltage QRS (Limb Leads) Anteroseptal GA, age undetermined Abnormal ECG Confirmed by RICO PERALES, WENDI ([id number]), assignment desk editor MONIK RICHMOND ([id number]) on 05/12/2020 12:36:17 PM Referred By: Vlad Alfaro Confirmed By:WENDI GÓMEZ MD
[2020-05-11] MEDS: Lactated Ringers 1,000 ML 75 ML IV (10:25)
[2020-05-11] MEDS: Metoprolol Tartrate 5 MG/5 ML Vial 2.5 MG IV (10:32)
--- NOTE | 2020-05-11 11:18 | CASEMGMT ---
Social Work Note SW received call from Rosi at [facility] stating due to COVID, [facility] is not requiring pre-certs at this time. Rosi states pt is able to admit to in network SNF and then the SNF will just need to submit clinicals within 24 hours of admissions. Pt transferred to PCU. KAITY transferred message from [facility] to Tran CONTRERAS. KAITY placed a call to Tran BRICENO on PCU and updated her on discharge plan. KAITY placed a call to [facility] in TCU and updated her that [facility] is not requiring pre-certs. Pt can admit to SNF and then SNF will need to provide clinicals within 24 hours of admission. KAITY updated [facility] that pt transferred to PCU, likely no discharge today. Plan: TCU once medically cleared Joslyn Barton SOURCER, MOLD PARTER
[2020-05-11 11:23] LABS: Absolute Lymphocyte Count 1.43 X10^3/uL (0.83-4.51); Absolute Neutrophil Count 5.1 X10^3/uL (2.0-7.7); Basophil# 0.03 X10^3/uL; Basophil% 0.4 % (0-1); Eosinophil# 0.15 X10^3/uL; Hematocrit 36.5 % (40-54); Hemoglobin 11.7 g/dL (13.0-16.5); Lymphocyte # 1.43 X10^3/ul (4.0); Lymphocyte % 18.7 % (19-41); Mean Corp Hgb Conc 32.1 g/dL (32-36); Mean Corpuscular Volume 99.7 fL (80-94); Mean Platelet Vol. 10.4 fl (6.2-12.0); Monocyte# 0.93 X10^3/uL; Monocyte% 12.2 % (0-10); NRBC Flagged by Analyzer 0 % (0-5); Neutrophil # 5.08 X10^3/uL (2.7-7.7); Neutrophil % 66.4 % (47-70); Platelet Count 189 K/mm3 (150-450); RBC Distribution Width CV 13.7 % (11.6-14.6); Red Blood Count 3.66 M/mm3 (4.6-6.2); White Blood Count 7.6 K/mm3 (4.4-11.0)
[2020-05-11] MEDS: Senna/Docusate Sodium 1 Tablet 2 TABLET PO (11:29)
[2020-05-11] MEDS: Famotidine 20 MG Tablet PO ×2 (11:29→22:52)
[2020-05-11] MEDS: Hydroxychloroquine 200 MG Tablet PO (11:30)
[2020-05-11] MEDS: Ascorbic Acid 500 MG Tablet PO (11:30)
[2020-05-11] MEDS: Methotrexate 2.5 MG Tablet 20 MG PO (11:31)
[2020-05-11] MEDS: Topiramate 25 MG Tablet PO ×2 (11:31→22:52)
[2020-05-11] MEDS: 0.9% NaCl Peripheral Flush Adult/Peds IV ×3 (11:32→23:52)
[2020-05-11] MEDS: Morphine 2 MG/ML Syringe IV (11:32)
[2020-05-11 11:54] LABS: Anion Gap 4 (5-15); BUN 12 mg/dL (7-18); BUN/Creat Ratio 17.4 RATIO (10-20); Calcium,Total 8.2 mg/dL (8.5-10.1); Chloride 109 mmol/L (98-107); Creatinine, Serum 0.69 mg/dL (0.70-1.30); EST Glomerular Filtration Rate 118 mL/min (>60); Est Glom Filt Rate - Afr Amer 143 mL/min (>60); Estimated Creatinine Clearance 49.79 ml/min; Glucose 107 mg/dL (74-106); Magnesium 2.2 mg/dL (1.6-2.6); Potassium 3.9 mmol/L (3.5-5.1); Sodium Level 142 mmol/L (136-145); Thyroid Stim Hormone (TSH) 1.26 uIU/mL (0.358-3.74)
--- NOTE | 2020-05-11 13:42 | CON.PCM_ITS ---
Problem List (1) Atrial fibrillation Status: Acute Qualifiers: Atrial fibrillation type: paroxysmal Qualified Code(s): I48.0 - Paroxysmal atrial fibrillation Reason for Consult Date of Consultation: 05/11/20 Reason for Consultation: Atrial fibrillation History of Present Illness: The patient is a 79 year old M [admitted to the hospital for laminectomy. Patient underwent laminectomy without any complications. This morning he was found to be tachycardic by his nurse and an EKG revealed A. fib with rapid ventricular response. Patient does not have any palpitations and is unaware that his heart rate is rapid and irregular. He does have some shortness of breath. He denies any chest pain. Review of systems: All systems reviewed. All else is negative except that in the HPI.] Past Medical History Allergies/Adverse Reactions: Allergies No Known Allergies Allergy (Verified 05/07/20 06:07) Home Medications: Ambulatory Orders Medication Instructions Recorded Calcium Carb/Vitamin D 1 tab PO DAILY@0800 10/09/14 [Caltrate-600 With Vit D Tab] Hydroxychloroquine [Plaquenil] 200 mg PO BIDCM 10/09/14 Trazodone HCl 150 mg PO QHS 09/22/17 Finasteride [Proscar] 5 mg PO DAILY 12/10/18 methotrexate sodium 2.5 mg tablet 20 mg PO JONES 01/29/19 ascorbic acid (vitamin C) 500 mg 500 mg PO DAILY tab 01/30/19 chewable tablet golimumab 12.5 mg/mL intravenous 135 mg IV [id number] ml 01/30/19 solution mecobalamin (vitamin B12) 5,000 2,500 mcg PO DAILY tab 01/30/19 mcg disintegrating tablet topiramate 25 mg tablet 25 mg PO BID 01/30/19 baclofen 10 mg tablet 10 mg PO TID PRN 11/11/19 folic acid 800 mcg tablet 1.6 mg PO DAILY tab 11/11/19 oxycodone-acetaminophen 5 mg-325 1 tab PO TID PRN tab 11/11/19 mg tablet CBD Tincture Oil 250 mg TOPICAL PRN PRN 04/06/20 herbal supplement 1 cap PO DAILY 04/06/20 dyhhjqta-zrryopiy-nmvke acid 400 1 tab PO DAILY 04/06/20 mcg-vit K 20 mcg-lycop 300 mcg tablet turmeric 400 mg capsule 400 mg PO DAILY cap 04/06/20 Aspirin [Aspirin EC] 81 mg PO DAILY 04/20/20 furosemide 20 mg tablet 20 mg PO MOWEFR #60 tab 04/24/20 Past Medical History (Chronic Problems): Chronic Problems (Last Updated 04/06/20 @ 10:53 by Tracy Gottlieb) Abnormal EKG (Chronic) Abnormal echocardiogram (Chronic) Left ventricular hypokinesis (Chronic) Leg pain, bilateral (Chronic) Edema (Chronic) Smoking Status: Former smoker Tobacco Use: Non-smoker Objective: Vital Signs Temp Pulse Resp BP Pulse Ox 98.2 F 164 H 12 101/76 99 05/11/20 11:08 05/11/20 12:26 05/11/20 11:08 05/11/20 11:08 05/11/20 11:08 Oxygen Flow Rate (L/min) 6 Oxygen Delivery Method Room Air Weight: 136 lb 0.403 oz Body Mass Index (BMI) 24.0 Intake and Output for Last 24 Hours 05/09/20 05/10/20 05/11/20 23:59 23:59 23:59 Intake Total 3338.75 / 3638.75 5042.50 / 5042.50 2036.25 / 2036.25 Output Total 2700 / 2950 900 / 900 200 / 200 Balance 638.75 / 688.75 4142.50 / 4142.50 1836.25 / 1836.25 General: Awake, Alert, Oriented x 3 HEENT: Atraumatic Oral: Moist Mucosa Neck: Supple Lungs: Clear to auscultation Cardiovascular: Irregular Rhythm Abdomen: Soft Extremities: No edema Skin: No Rashes Psych/Mental Status: Appropriate 04/27/20 16:01: AST 22, ALT 30, Alkaline Phosphatase 58, Total Protein 7.5, Albumin 4.2, Globulin 3.3 04/27/20 16:01: RDW Std Deviation 50.2 H, RDW Coeff of Jaciel 13.8, Absolute Lymphs (auto) 0.66 L 04/27/20 16:01: Hepatitis A IgM Ab Negative, Hepatitis A Ab Total Negative, Hep Bs Antigen Negative, Hep B Core Total Ab Negative, Hep B Core IgM Ab Negative, Hepatitis C Ab Confirm <0.1, Hep C Confirm Com 1 Comment 04/27/20 16:01: HIV 1&2 Antibody Non-Reactive 05/07/20 06:32: POC Glucose 84 05/10/20 17:20: WBC 7.7, RBC 3.47 L, Hgb 11.2 L, Hct 34.2 L, MCV 98.6 H, MCH 32.3 H, MCHC 32.7, RDW Std Deviation 48.1 H, RDW Coeff of Jaciel 13.4, Plt Count 142 L, MPV 10.0, Immature Gran % (Auto) 0.400, Neut % (Auto) 73.6 H, Lymph % (Auto) 13.7 L, Robertson % (Auto) 10.8 H, Eos % (Auto) 1.2, Baso % (Auto) 0.3, Absolute Neuts (auto) 5.7, Absolute Lymphs (auto) 1.05, Nucleated RBC % 0 05/11/20 11:15: WBC 7.6, RBC 3.66 L, Hgb 11.7 L, Hct 36.5 L, MCV 99.7 H, MCH 32.0, MCHC 32.1, RDW Std Deviation 51.0 H, RDW Coeff of Jaciel 13.7, Plt Count 189, MPV 10.4, Immature Gran % (Auto) 0.300, Neut % (Auto) 66.4, Lymph % (Auto) 18.7 L, Robertson % (Auto) 12.2 H, Eos % (Auto) 2.0, Baso % (Auto) 0.4, Absolute Neuts (auto) 5.1, Absolute Lymphs (auto) 1.43, Nucleated RBC % 0 05/11/20 11:15: Sodium 142, Potassium 3.9, Chloride 109 H, Carbon Dioxide 29.0, Anion Gap 4 L, BUN 12, Creatinine 0.69 L, Estim Creat Clear Calc 49.79, Est GFR (MDRD) Af Amer 143, Est GFR (MDRD) Non-Af 118, BUN/Creatinine Ratio 17.4, Glucose 107 H, Calcium 8.2 L, Magnesium 2.2, TSH 1.26 Rhythm: EKG: ECHO: Stress Test: Cardiac Cath: PCI: CT Surgery: Holter monitor: EPS: PPM: CXR: Chest CT Scan: Assessment/Plan 1. Atrial fibrillation: Patient had surgery on the and appears to have gone into A. fib with RVR this morning. Patient was also seen by me in the office for irregular heart rate. At that time he was found to be in sinus rhythm with PVCs. At this time I agree with keeping the patient on amiodarone. I will also load him with digoxin to see if we can control his heart rate better with this regimen. His blood pressure is on the low side. Eventually patient would benefit from anticoagulation with either Coumadin or one of the novel oral anticoagulants. However since patient had recent surgery we can hold off on starting him on that at this time.
--- NOTE | 2020-05-11 13:44 | PN_ITS ---
Subjective: Patient seen and examined. He complained of feeling weak and tired. He denied any fever, chills, nausea, vomiting or diarrhea. He wanted to know why he had not received his methotrexate since admission. Review of symptoms otherwise negative. Of note, patient subsequently went into A. fib with RVR with heart rate going up to the 160s. Patient said he did have a history of irregular heart rhythm but had been told that it was not A. fib. Review of his chart showed he had a history of SVT. Patient was given a dose of IV metoprolol 2.5mg and started on amioadrone drip and transferred to PCU. cardiology consulted. Vitals/I&O's: Vital Signs Temp Pulse Resp BP Pulse Ox 98.2 F 164 H 12 101/76 99 05/11/20 11:08 05/11/20 12:26 05/11/20 11:08 05/11/20 11:08 05/11/20 11:08 Oxygen Flow Rate (L/min) 6 Oxygen Delivery Method Room Air Weight: 136 lb 0.403 oz Body Mass Index (BMI) 24.0 Intake and Output for Last 24 Hours 05/09/20 05/10/20 05/11/20 23:59 23:59 23:59 Intake Total 3338.75 / 3638.75 5042.50 / 5042.50 2036.25 / 2036.25 Output Total 2700 / 2950 900 / 900 200 / 200 Balance 638.75 / 688.75 4142.50 / 4142.50 1836.25 / 1836.25 General: Alert, Oriented x3, Cooperative HEENT: Atraumatic, PERRLA, EOMI, Normocephalic Oral: Dry Mucosa Neck: Supple, No JVD, Negative Carotid Bruits Lungs: Clear to auscultation, Normal air movement, No rhonchi, No wheeze, No rales Cardiovascular: Irregular Rate - afib with RVR, Tachycardic Abdomen: Bowel Sounds Present, Soft, Non Tender, Non-Distended, No Hepato- splenomegaly, Passing Flatus Extremities: No clubbing, No cyanosis, No edema, Capillary Refill Less than 3 Seconds Skin: No rashes, No breakdown Musculoskeletal: No Tenderness to Palpation of Joints or Extremities Lymphatic: No Cervical, Supraclavicular, or Inguinal Adenopathy Neurological: Cranial nerves II-XII grossly intact, Neuro grossly intact, Motor Exam 5/5 strength throughout Psych/Mental Status: Normal Affect, Appropriate, Alert and oriented to time, place, person, mood and affect Laboratory Results 05/10/20 17:20: WBC 7.7, RBC 3.47 L, Hgb 11.2 L, Hct 34.2 L, MCV 98.6 H, MCH 32.3 H, MCHC 32.7, RDW Std Deviation 48.1 H, RDW Coeff of Jaciel 13.4, Plt Count 142 L, MPV 10.0, Immature Gran % (Auto) 0.400, Neut % (Auto) 73.6 H, Lymph % (Auto) 13.7 L, [place] % (Auto) 10.8 H, Eos % (Auto) 1.2, Baso % (Auto) 0.3, Absolute Neuts (auto) 5.7, Absolute Lymphs (auto) 1.05, Nucleated RBC % 0 05/11/20 11:15: WBC 7.6, RBC 3.66 L, Hgb 11.7 L, Hct 36.5 L, MCV 99.7 H, MCH 32.0, MCHC 32.1, RDW Std Deviation 51.0 H, RDW Coeff of Jaciel 13.7, Plt Count 189, MPV 10.4, Immature Gran % (Auto) 0.300, Neut % (Auto) 66.4, Lymph % (Auto) 18.7 L, [place] % (Auto) 12.2 H, Eos % (Auto) 2.0, Baso % (Auto) 0.4, Absolute Neuts (auto) 5.1, Absolute Lymphs (auto) 1.43, Nucleated RBC % 0 05/11/20 11:15: Sodium 142, Potassium 3.9, Chloride 109 H, Carbon Dioxide 29.0, Anion Gap 4 L, BUN 12, Creatinine 0.69 L, Estim Creat Clear Calc 49.79, Est GFR (MDRD) Af Amer 143, Est GFR (MDRD) Non-Af 118, BUN/Creatinine Ratio 17.4, Glucose 107 H, Calcium 8.2 L, Magnesium 2.2, TSH 1.26 Diagnostic Data Spine X-Ray 05/07/20 07:30 IMPRESSION: The metallic localization probe is seen overlying the posterior aspect of the L4-L5 disc space level. Electronically Signed: Nicko Yoon, at 10:30 EST , Service support , Current Medications Acetaminophen (Acetaminophen 325 Mg Tablet) 650 mg PO Q4H PRN PRN PRN Reason: HEADACHE/FEVER (T>100F) Last Admin: 05/11/20 06:44 Dose: 650 mg Documented by: Ascorbic Acid (Ascorbic Acid 500 Mg Tablet) 500 mg PO DAILY@0800 [facility] Last Admin: 05/11/20 11:30 Dose: 500 mg Documented by: Cyanocobalamin (Cyanocobalamin 500 Mcg Tablet) 2,500 mcg PO DAILY [facility] Diazepam (Diazepam 5 Mg Tablet) 5 mg PO Q6H PRN PRN PRN Reason: Muscle Spasms Last Admin: 05/09/20 15:28 Dose: 5 mg Documented by: Enteral Nutritional Formula (Ensure Surgery 237 Ml Liquid) 237 ml PO TIDCM [facility] Last Admin: 05/11/20 12:14 Dose: Not Given Documented by: Famotidine (Famotidine 20 Mg Tablet) 20 mg PO BID [facility] Last Admin: 05/11/20 11:29 Dose: 20 mg Documented by: Folic Acid (Folic Acid 1 Mg Tablet) 1.5 mg PO DAILY@0800 [facility] Hydroxychloroquine Sulfate (Hydroxychloroquine 200 Mg Tablet) 200 mg PO BIDCM [facility] Last Admin: 05/11/20 11:30 Dose: 200 mg Documented by: Lactated Ringer's () 1,000 mls @ 75 mls/hr IV .[id number] [facility] Last Infusion: 05/11/20 11:32 Dose: 75 mls/hr Documented by: Amiodarone HCl 360 mg/ (Dextrose) 200 mls @ 33.333 mls/hr CONT INF .Q6H [facility] Stop: 05/11/20 19:44 Amiodarone HCl 360 mg/ (Dextrose) 200 mls @ 16.667 mls/hr CONT INF .Q12H [facility] Stop: 05/12/20 13:44 Methotrexate (Methotrexate 2.5 Mg Tablet) 20 mg PO Bui@1000 [facility] Morphine Sulfate (Morphine 4 Mg/Ml Syringe) 2 - 4 mg IV Q2H PRN PRN PRN Reason: Pain Score 6-10 Last Admin: 05/08/20 17:35 Dose: 4 mg Documented by: Morphine Sulfate (Morphine 2 Mg/Ml Syringe) 2 - 4 mg IV Q2H PRN PRN PRN Reason: Pain Score 6-10 Last Admin: 05/11/20 11:32 Dose: 2 mg Documented by: Multivitamins/Minerals (Multivitamins,Ther W-Minerals Tablet) 1 tablet PO DAILY@0800 [facility] Ondansetron HCl (Ondansetron 4 Mg/2 Ml Vial) 4 mg IV Q8H PRN PRN PRN Reason: NAUSEA Last Admin: 05/08/20 05:57 Dose: 4 mg Documented by: Oxycodone HCl (Oxycodone 5 Mg Tablet) 2.5 - 5 mg PO Q4H PRN PRN PRN Reason: Pain Score 6-10 Last Admin: 05/11/20 06:44 Dose: 5 mg Documented by: Senna/Docusate Sodium (Senna/Docusate Sodium 1 Tablet) 2 tablet PO BID [facility] Last Admin: 05/11/20 11:29 Dose: 2 tablet Documented by: Sodium Chloride (0.9% Nacl Peripheral Flush Adult/Peds) 5 - 15 ml IV UD PRN PRN Reason: SALINE FLUSH Last Admin: 05/11/20 11:32 Dose: 10 ml Documented by: Sodium Chloride (0.9% Saline Lock 10 Ml Syringe) 10 - 40 ml IV UD PRN PRN Reason: SALINE FLUSH Topiramate (Topiramate 25 Mg Tablet) 25 mg PO BID [facility] Last Admin: 05/11/20 11:31 Dose: 25 mg Documented by: Trazodone HCl (Trazodone 50 Mg Tablet) 150 mg PO QHS [facility] Zolpidem Tartrate (Zolpidem Tartrate 5 Mg Tablet) 5 mg PO QHS PRN PRN PRN Reason: INSOMNIA Last Admin: 05/10/20 22:06 Dose: 5 mg Documented by: STROKE Vital Signs/Narrative: Vital Signs Temp Pulse Resp BP BP Pulse Ox 05/11/20 12:26 164 H 05/11/20 11:08 98.2 F 151 H 12 101/76 99 05/11/20 10:50 155 H 110/80 05/11/20 10:32 154 H 102/63 Medical Necessity - Tobacco Use Smoking Status: Former smoker Tobacco Use: Non-smoker Assessment/Plan All Active Problems (Last Updated 04/06/20 @ 10:53 by Tracy Gottlieb) Recurrent umbilical hernia (Resolved) #Afib wit RVR * developed afib with RVR today. doesnt have a history of Afib * cardiology consulted. Started on amiodarone drip; bolus not given as patient is hypotensive. * check TSH. * cannot anticoagulate as he just had laminectomy * #s/p laminectomy * management as per neurosurgery. * pain medication as per neurosurgery * #BPH: on flomax. Will hold o/a of low BP #Rheumatoid arthritis * on methotrexate and golimumab * hold hydroxychloroquine due to risk of QT prolongation with methotrexate * #Hypotension: BP hs been in the 90s systolic. asymptomatic. continue to monitor DVT prophylaxis; SCDs Inpatient E&M: [id number] [facility] Hosp L3
[2020-05-11] MEDS: Digoxin 250 MCG/ML Ampul 500 MCG IV (14:09)
--- NOTE | 2020-05-11 14:11 | ECHOCS_ITS ---
Version 2 Reason For Study: Afib, Aflutter Procedure This was a 2D Doppler, Color Flow transthoracic echocardiogram. Contrast injection was performed. Exam performed portable in patient room. Left Ventricle Normal LV size. The estimated ejection fraction is 50-55 %. No evidence for diastolic dysfunction. Fenton : Hypokinetic. Right Ventricle Normal RV size. Normal systolic function. Atria Normal left atrium. Normal right atrium. No doppler evidence for ASD. Mitral Valve There is mild mitral annular calcification. There is no mitral valve stenosis. Mild (1+) mitral valve insufficiency. Tricuspid Valve There is no tricuspid stenosis. Trivial tricuspid valve insufficiency. Unable to estimate RV systolic pressure due to inadequate jet, pulmonary artery pressure probably normal. Aortic Valve Mild diffuse aortic valve thickening. There is no aortic stenosis. No aortic valve insufficiency. Pulmonic Valve There is no pulmonic valvular stenosis. No pulmonic valve insufficiency. Great Vessels Normal aortic root. Pericardium/Pleural Small pericardial effusion. Medication Diluted definity 4ml given slow IV push to enhance endocardial definition. MMode/2D Measurements & Calculations LVIDd: 3.8 cm IVSd: 0.86 cm Ao root diam: 3.3 cm LVIDs: 2.8 cm LVPWd: 1.1 cm RVDd: 2.9 cm FS: 25.7 % LAV(MOD-bp): 53.6 ml LA A4 area: 19.2 cm2 LA dimension(2D): 3.8 cm LAV(MOD-bp) Indexed: 32.7 ml/m2 LAV(MOD-sp2): 50.1 ml LAV(MOD-sp4): 48.3 ml RA A4 area: 15.8 cm2 Doppler Measurements & Calculations MV E max ashlee: 131.9 cm/sec MV V2 max: 138.5 cm/sec Ao V2 max: 149.0 cm/sec MV max P.7 mmHg Ao max P.9 mmHg MV V2 mean: 93.0 cm/sec Ao V2 mean: 103.4 cm/sec MV mean P.9 mmHg Ao mean P.7 mmHg MV V2 VTI: 18.1 cm Ao V2 VTI: 18.5 cm LV V1 max: 109.3 cm/sec PA V2 max: 92.4 cm/sec TR max ashlee: 303.6 cm/sec LV V1 max P.8 mmHg TR max P.9 mmHg Interpretation Summary The estimated ejection fraction is 50-55 %. No evidence for diastolic dysfunction. Mild (1+) mitral valve insufficiency. Mild diffuse aortic valve thickening. Small pericardial effusion. Fenton : Hypokinetic. Ordering Physician: Caitlin Chen Referring Physician: Gloria Hazel Performed By: Deanna Leonardo RDCS, RVT
[2020-05-11] MEDS: Amiodarone 360 MG in Dextrose 5% Viaflo Bag 192.8 ML 33.3 MG CONT INF (14:26)
[2020-05-11] MEDS: Amiodarone 360 MG in Dextrose 5% Viaflo Bag 192.8 ML 16.7 MG CONT INF (20:17)
[2020-05-11] MEDS: Zolpidem Tartrate 5 MG Tablet PO (22:51)
[2020-05-11] MEDS: Metoprolol Tartrate 5 MG/5 ML Vial IV (23:51)
[2020-05-12] VITALS (25 sets, daily range): BP systolic 90–137; BP diastolic 51–101; PULSE 69–167; RESP 14–31; TEMP 36.6–37.7; O2SAT 91–99
[2020-05-12] MEDS: traZODone 50 MG Tablet 150 MG PO (02:03)
[2020-05-12] MEDS: Metoprolol Tartrate 50 MG Tablet PO (02:04)
[2020-05-12] MEDS: Ondansetron 4 MG/2 ML Vial IV (02:19)
[2020-05-12] MEDS: 0.9% NaCl Peripheral Flush Adult/Peds IV ×2 (02:20→13:34)
--- NOTE | 2020-05-12 03:44 | EKG12_ITS ---
Test Reason : CONVERTED TO NSR Blood Pressure : / mmHG Vent. Rate : 072 BPM Atrial Rate : 072 BPM P-R Int : 206 ms QRS Dur : 086 ms QT Int : 396 ms P-R-T Axes : 042 008 040 degrees QTc Int : 433 ms Normal sinus rhythm Low voltage QRS Borderline ECG When compared with ECG of 11-MAY-2020 10:03, MANUAL COMPARISON REQUIRED, DATA IS UNCONFIRMED Confirmed by FELIX PERALES, SREEKANTH ([id number]), book or script editor MONIK RICHMOND ([id number]) on 05/18/2020 9:27:44 AM Referred By: Vlad Alfaro Confirmed By:SHAQUILLE WASHINGTON MD
[2020-05-12] MEDS: oxyCODONE 5 MG Tablet PO ×5 (04:10→21:44)
[2020-05-12 06:35] LABS: Absolute Lymphocyte Count 0.52 X10^3/uL (0.83-4.51); Absolute Neutrophil Count 5.6 X10^3/uL (2.0-7.7); Basophil# 0.02 X10^3/uL; Basophil% 0.3 % (0-1); Eosinophil# 0.11 X10^3/uL; Eosinophils% 1.6 % (0-5); Hematocrit 29.8 % (40-54); Hemoglobin 9.8 g/dL (13.0-16.5); Lymphocyte # 0.52 X10^3/ul (4.0); Lymphocyte % 7.3 % (19-41); Mean Corp Hgb Conc 32.9 g/dL (32-36); Mean Corpuscular Hgb 32.5 pg (27.0-32.0); Mean Corpuscular Volume 98.7 fL (80-94); Mean Platelet Vol. 10.2 fl (6.2-12.0); Monocyte# 0.77 X10^3/uL; Monocyte% 10.9 % (0-10); NRBC Flagged by Analyzer 0 % (0-5); Neutrophil # 5.64 X10^3/uL (2.7-7.7); Neutrophil % 79.6 % (47-70); POSITIVE DIFFERENTIAL YES; Platelet Count 170 K/mm3 (150-450); RBC Distribution Width CV 13.7 % (11.6-14.6); RBC Distribution Width SD 49.3 fl (35.1-43.9); Red Blood Count 3.02 M/mm3 (4.6-6.2); White Blood Count 7.1 K/mm3 (4.4-11.0)
[2020-05-12 06:40] LABS: Differential Indicated SCAN CRITERIA MET
[2020-05-12] MEDS: Acetaminophen 325 MG Tablet 650 MG PO ×2 (06:49→16:00)
[2020-05-12 06:58] LABS: Anion Gap 6 (5-15); BUN 15 mg/dL (7-18); BUN/Creat Ratio 24.3 RATIO (10-20); Calcium,Total 7.7 mg/dL (8.5-10.1); Chloride 108 mmol/L (98-107); Creatinine, Serum 0.62 mg/dL (0.70-1.30); EST Glomerular Filtration Rate 134 mL/min (>60); Est Glom Filt Rate - Afr Amer 163 mL/min (>60); Estimated Creatinine Clearance 49.79 ml/min; Glucose 108 mg/dL (74-106); Magnesium 2.2 mg/dL (1.6-2.6); Potassium 3.9 mmol/L (3.5-5.1); Sodium Level 138 mmol/L (136-145)
[2020-05-12] MEDS: Amiodarone 360 MG in Dextrose 5% Viaflo Bag 192.8 ML 16.7 MG CONT INF (07:25)
--- NOTE | 2020-05-12 07:40 | PN_ITS ---
Patient Problems: Active and Suspected Problems (Last Updated 04/06/20 @ 10:53 by Tracy Gottlieb) Atrial fibrillation (Acute) Subjective: Patient seen and examined. Has no complaints this morning. Heart rate is much better controlled. Surgical PCU on account of patient having A. fib with RVR. He converted to normal sinus rhythm in the early hours of today. 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 Vitals/I&O's: Vital Signs Temp Pulse Resp BP Pulse Ox 98.3 F 75 22 H 108/73 95 05/12/20 04:00 05/12/20 06:56 05/12/20 06:00 05/12/20 06:00 05/12/20 06:00 Oxygen Flow Rate (L/min) 6 Oxygen Delivery Method Room Air Weight: 136 lb 0.403 oz Body Mass Index (BMI) 24.0 Intake and Output for Last 24 Hours 05/10/20 05/11/20 05/12/20 23:59 23:59 23:59 Intake Total 5042.50 / 5042.50 2928.96 / 2945.66 140.56 / 140.56 Output Total 900 / 900 400 / 400 200 / 200 Balance 4142.50 / 4142.50 2528.96 / 2545.66 -59.44 / -59.44 General: Alert, Oriented x3, Cooperative HEENT: Atraumatic, PERRLA, EOMI, Normocephalic Oral: Dry Mucosa Neck: Supple, No JVD, Negative Carotid Bruits Lungs: Clear to auscultation, Normal air movement, No rhonchi, No wheeze, No rales Cardiovascular: Irregular Rate - afib, rate controlled. Abdomen: Bowel Sounds Present, Soft, Non Tender, Non-Distended, No Hepato- splenomegaly, Passing Flatus Extremities: No clubbing, No cyanosis, No edema, Capillary Refill Less than 3 Seconds Skin: No rashes, No breakdown Musculoskeletal: No Tenderness to Palpation of Joints or Extremities Lymphatic: No Cervical, Supraclavicular, or Inguinal Adenopathy Neurological: Cranial nerves II-XII grossly intact, Neuro grossly intact, Motor Exam 5/5 strength throughout Psych/Mental Status: Normal Affect, Appropriate, Alert and oriented to time, place, person, mood and affect Laboratory Results 05/11/20 11:15: WBC 7.6, RBC 3.66 L, Hgb 11.7 L, Hct 36.5 L, MCV 99.7 H, MCH 32.0, MCHC 32.1, RDW Std Deviation 51.0 H, RDW Coeff of Jaciel 13.7, Plt Count 189, MPV 10.4, Immature Gran % (Auto) 0.300, Neut % (Auto) 66.4, Lymph % (Auto) 18.7 L, [place] % (Auto) 12.2 H, Eos % (Auto) 2.0, Baso % (Auto) 0.4, Absolute Neuts (auto) 5.1, Absolute Lymphs (auto) 1.43, Nucleated RBC % 0 05/11/20 11:15: Sodium 142, Potassium 3.9, Chloride 109 H, Carbon Dioxide 29.0, Anion Gap 4 L, BUN 12, Creatinine 0.69 L, Estim Creat Clear Calc 49.79, Est GFR (MDRD) Af Amer 143, Est GFR (MDRD) Non-Af 118, BUN/Creatinine Ratio 17.4, Glucose 107 H, Calcium 8.2 L, Magnesium 2.2, TSH 1.26 05/12/20 05:54: WBC 7.1, RBC 3.02 L, Hgb 9.8 L, Hct 29.8 L, MCV 98.7 H, MCH 32.5 H, MCHC 32.9, RDW Std Deviation 49.3 H, RDW Coeff of Jaciel 13.7, Plt Count 170, MPV 10.2, Immature Gran % (Auto) 0.300, Neut % (Auto) 79.6 H, Lymph % (Auto) 7.3 L, [place] % (Auto) 10.9 H, Eos % (Auto) 1.6, Baso % (Auto) 0.3, Absolute Neuts (auto) 5.6, Absolute Lymphs (auto) 0.52 L, Nucleated RBC % 0 05/12/20 05:54: Sodium 138, Potassium 3.9, Chloride 108 H, Carbon Dioxide 24.0, Anion Gap 6, BUN 15, Creatinine 0.62 L, Estim Creat Clear Calc 49.79, Est GFR (MDRD) Af Amer 163, Est GFR (MDRD) Non-Af 134, BUN/Creatinine Ratio 24.3 H, Glucose 108 H, Calcium 7.7 L, Magnesium 2.2 Current Medications Acetaminophen (Acetaminophen 325 Mg Tablet) 650 mg PO Q4H PRN PRN PRN Reason: HEADACHE/FEVER (T>100F) Last Admin: 05/12/20 06:49 Dose: 650 mg Documented by: Ascorbic Acid (Ascorbic Acid 500 Mg Tablet) 500 mg PO DAILY@0800 [facility] Last Admin: 05/11/20 11:30 Dose: 500 mg Documented by: Cyanocobalamin (Cyanocobalamin 500 Mcg Tablet) 2,500 mcg PO DAILY [facility] Diazepam (Diazepam 5 Mg Tablet) 5 mg PO Q6H PRN PRN PRN Reason: Muscle Spasms Last Admin: 05/09/20 15:28 Dose: 5 mg Documented by: Enteral Nutritional Formula (Ensure Surgery 237 Ml Liquid) 237 ml PO TIDCM [facility] Last Admin: 05/11/20 19:08 Dose: Not Given Documented by: Famotidine (Famotidine 20 Mg Tablet) 20 mg PO BID [facility] Last Admin: 05/11/20 22:52 Dose: 20 mg Documented by: Folic Acid (Folic Acid 1 Mg Tablet) 1.5 mg PO DAILY@0800 [facility] Hydroxychloroquine Sulfate (Hydroxychloroquine 200 Mg Tablet) 200 mg PO BIDCM [facility] Last Admin: 05/11/20 11:30 Dose: 200 mg Documented by: Amiodarone HCl 360 mg/ (Dextrose) 200 mls @ 16.667 mls/hr CONT INF .Q12H [facility] Stop: 05/12/20 13:44 Last Admin: 05/12/20 07:25 Dose: 0.5 mg/min, 16.7 mls/hr Documented by: Methotrexate (Methotrexate 2.5 Mg Tablet) 20 mg PO Bui@1000 [facility] Morphine Sulfate (Morphine 4 Mg/Ml Syringe) 2 - 4 mg IV Q2H PRN PRN PRN Reason: Pain Score 6-10 Last Admin: 05/08/20 17:35 Dose: 4 mg Documented by: Morphine Sulfate (Morphine 2 Mg/Ml Syringe) 2 - 4 mg IV Q2H PRN PRN PRN Reason: Pain Score 6-10 Last Admin: 05/11/20 11:32 Dose: 2 mg Documented by: Multivitamins/Minerals (Multivitamins,Ther W-Minerals Tablet) 1 tablet PO DAILY@0800 [facility] Ondansetron HCl (Ondansetron 4 Mg/2 Ml Vial) 4 mg IV Q8H PRN PRN PRN Reason: NAUSEA Last Admin: 05/12/20 02:19 Dose: 4 mg Documented by: Oxycodone HCl (Oxycodone 5 Mg Tablet) 2.5 - 5 mg PO Q4H PRN PRN PRN Reason: Pain Score 6-10 Last Admin: 05/12/20 04:10 Dose: 5 mg Documented by: Senna/Docusate Sodium (Senna/Docusate Sodium 1 Tablet) 2 tablet PO BID [facility] Last Admin: 05/11/20 20:08 Dose: Not Given Documented by: Sodium Chloride (0.9% Nacl Peripheral Flush Adult/Peds) 5 - 15 ml IV UD PRN PRN Reason: SALINE FLUSH Last Admin: 05/12/20 02:20 Dose: 10 ml Documented by: Sodium Chloride (0.9% Saline Lock 10 Ml Syringe) 10 - 40 ml IV UD PRN PRN Reason: SALINE FLUSH Topiramate (Topiramate 25 Mg Tablet) 25 mg PO BID [facility] Last Admin: 05/11/20 22:52 Dose: 25 mg Documented by: Trazodone HCl (Trazodone 50 Mg Tablet) 150 mg PO QHS [facility] Last Admin: 05/12/20 02:03 Dose: 150 mg Documented by: Zolpidem Tartrate (Zolpidem Tartrate 5 Mg Tablet) 5 mg PO QHS PRN PRN PRN Reason: INSOMNIA Last Admin: 05/11/20 22:51 Dose: 5 mg Documented by: STROKE Vital Signs/Narrative: Vital Signs Temp Pulse Resp BP Pulse Ox 05/12/20 06:56 75 05/12/20 06:00 79 22 H 108/73 95 05/12/20 05:00 69 27 H 96/66 93 05/12/20 04:00 98.3 F 71 22 H 99/59 L 96 Medical Necessity - Tobacco Use Smoking Status: Former smoker Tobacco Use: Non-smoker Assessment/Plan All Active Problems (Last Updated 04/06/20 @ 10:53 by Tracy Gottlieb) Atrial fibrillation (Acute) Recurrent umbilical hernia (Resolved) #Afib wit RVR * now converted to NSR * was on amiodarone drip; patient also loaded with digoxin * TSH WNL * patient currently not anticoagulated as he just had laminectomy. WIll benefit from anticoagulation once it is ok with spine surgery * * #s/p laminectomy * management as per neurosurgery. * pain medication as per neurosurgery * #BPH: on flomax. Will hold o/a of low BP #Rheumatoid arthritis * on methotrexate and golimumab * hold hydroxychloroquine due to risk of QT prolongation with methotrexate * #Hypotension: * BP now in the 100s systolic. WIll monitor DVT prophylaxis; SCDs Inpatient E&M: 56631 Subs Hosp L2
[2020-05-12] MEDS: Cyanocobalamin 500 MCG Tablet 2500 MCG PO (09:32)
[2020-05-12] MEDS: Topiramate 25 MG Tablet PO ×2 (09:33→22:01)
[2020-05-12] MEDS: Multivitamins,Ther W-Minerals Tablet 1 TABLET PO (09:33)
[2020-05-12] MEDS: Famotidine 20 MG Tablet PO ×2 (09:33→22:00)
[2020-05-12] MEDS: Ascorbic Acid 500 MG Tablet PO (09:33)
[2020-05-12] MEDS: Folic Acid 1 MG Tablet 1.5 MG PO (09:33)
[2020-05-12] MEDS: Ensure Surgery 237 ML LIQUID PO ×3 (09:36→16:00)
[2020-05-12] MEDS: Metoprolol Tartrate 25 MG Tablet PO ×2 (12:32→22:04)
[2020-05-13] VITALS (7 sets, daily range): BP systolic 106–128; BP diastolic 62–70; PULSE 70–79; RESP 16–18; TEMP 36.9–37.4; O2SAT 94–98
[2020-05-13] MEDS: Zolpidem Tartrate 5 MG Tablet PO (00:01)
[2020-05-13] MEDS: traZODone 50 MG Tablet 150 MG PO (02:17)
[2020-05-13] MEDS: oxyCODONE 5 MG Tablet PO ×3 (02:18→13:05)
[2020-05-13 05:01] LABS: Absolute Lymphocyte Count 1.03 X10^3/uL (0.83-4.51); Absolute Neutrophil Count 3.7 X10^3/uL (2.0-7.7); Basophil# 0.03 X10^3/uL; Basophil% 0.5 % (0-1); Eosinophil# 0.29 X10^3/uL; Eosinophils% 5.1 % (0-5); Hematocrit 29.9 % (40-54); Hemoglobin 9.9 g/dL (13.0-16.5); Lymphocyte # 1.03 X10^3/ul (4.0); Lymphocyte % 18.3 % (19-41); Mean Corp Hgb Conc 33.1 g/dL (32-36); Mean Corpuscular Hgb 32.5 pg (27.0-32.0); Mean Platelet Vol. 9.5 fl (6.2-12.0); Monocyte# 0.62 X10^3/uL; NRBC Flagged by Analyzer 0 % (0-5); Neutrophil # 3.66 X10^3/uL (2.7-7.7); Neutrophil % 64.9 % (47-70); Platelet Count 152 K/mm3 (150-450); RBC Distribution Width CV 13.5 % (11.6-14.6); RBC Distribution Width SD 48.5 fl (35.1-43.9); Red Blood Count 3.05 M/mm3 (4.6-6.2); White Blood Count 5.6 K/mm3 (4.4-11.0)
[2020-05-13 05:18] LABS: Anion Gap 5 (5-15); BUN 14 mg/dL (7-18); BUN/Creat Ratio 22.6 RATIO (10-20); Chloride 109 mmol/L (98-107); Creatinine, Serum 0.62 mg/dL (0.70-1.30); EST Glomerular Filtration Rate 134 mL/min (>60); Est Glom Filt Rate - Afr Amer 162 mL/min (>60); Estimated Creatinine Clearance 49.79 ml/min; Glucose 97 mg/dL (74-106); Magnesium 2.2 mg/dL (1.6-2.6); Potassium 3.5 mmol/L (3.5-5.1); Sodium Level 140 mmol/L (136-145)
[2020-05-13] MEDS: Multivitamins,Ther W-Minerals Tablet 1 TABLET PO (08:24)
[2020-05-13] MEDS: Folic Acid 1 MG Tablet 1.5 MG PO (08:24)
[2020-05-13] MEDS: Metoprolol Tartrate 25 MG Tablet PO (08:25)
[2020-05-13] MEDS: Famotidine 20 MG Tablet PO (08:26)
[2020-05-13] MEDS: Senna/Docusate Sodium 1 Tablet 2 TABLET PO (08:26)
[2020-05-13] MEDS: Cyanocobalamin 500 MCG Tablet 2500 MCG PO (08:27)
[2020-05-13] MEDS: Ascorbic Acid 500 MG Tablet PO (08:27)
[2020-05-13] MEDS: Topiramate 25 MG Tablet PO (08:28)
[2020-05-13] MEDS: Ensure Surgery 237 ML LIQUID PO ×2 (10:19→13:00)
[2020-05-13] MEDS: Acetaminophen 325 MG Tablet 650 MG PO (10:22)
--- NOTE | 2020-05-13 13:27 | PN_ITS ---
Patient Problems: Active and Suspected Problems (Last Updated 04/06/20 @ 10:53 by Tracy Gottlieb) Atrial fibrillation (Acute) Subjective: Patient seen and examined. He had no complaints today. His heart rate has remained well controlled. Review of systems otherwise negative. Vitals/I&O's: Vital Signs Temp Pulse Resp BP Pulse Ox 98.5 F 79 16 122/70 H 94 05/13/20 08:25 05/13/20 08:25 05/13/20 08:25 05/13/20 08:25 05/13/20 08:25 Oxygen Flow Rate (L/min) 6 Oxygen Delivery Method Room Air Weight: 136 lb 0.403 oz Body Mass Index (BMI) 24.0 Intake and Output for Last 24 Hours 05/11/20 05/12/20 05/13/20 23:59 23:59 23:59 Intake Total 2928.96 / 2945.66 841.04 / 841.04 750 / 750 Output Total 400 / 400 1100 / 1100 825 / 825 Balance 2528.96 / 2545.66 -258.96 / -258.96 -75 / -75 General: Alert, Oriented x3, Cooperative HEENT: Atraumatic, PERRLA, EOMI, Normocephalic Oral: Dry Mucosa Neck: Supple, No JVD, Negative Carotid Bruits Lungs: Clear to auscultation, Normal air movement, No rhonchi, No wheeze, No rales Cardiovascular: Irregular Rate - afib, rate controlled. Abdomen: Bowel Sounds Present, Soft, Non Tender, Non-Distended, No Hepato- splenomegaly, Extremities: No clubbing, No cyanosis, No edema, Capillary Refill Less than 3 Seconds Skin: No rashes, No breakdown Musculoskeletal: No Tenderness to Palpation of Joints or Extremities Lymphatic: No Cervical, Supraclavicular, or Inguinal Adenopathy Neurological: Cranial nerves II-XII grossly intact, Neuro grossly intact, Motor Exam 5/5 strength throughout Psych/Mental Status: Normal Affect, Appropriate, Alert and oriented to time, place, person, mood and affect Microbiology Past 72 Hours 05/12/20 17:50 Mucosa - Nose SARS-CoV-2 Antigen (Rapid) - Final Laboratory Results 05/13/20 04:56: WBC 5.6, RBC 3.05 L, Hgb 9.9 L, Hct 29.9 L, MCV 98.0 H, MCH 32.5 H, MCHC 33.1, RDW Std Deviation 48.5 H, RDW Coeff of Jaciel 13.5, Plt Count 152, MPV 9.5, Immature Gran % (Auto) 0.200, Neut % (Auto) 64.9, Lymph % (Auto) 18.3 L , Gaines % (Auto) 11.0 H, Eos % (Auto) 5.1 H, Baso % (Auto) 0.5, Absolute Neuts (auto) 3.7, Absolute Lymphs (auto) 1.03, Nucleated RBC % 0 05/13/20 04:56: Sodium 140, Potassium 3.5, Chloride 109 H, Carbon Dioxide 26.0, Anion Gap 5, BUN 14, Creatinine 0.62 L, Estim Creat Clear Calc 49.79, Est GFR (MDRD) Af Amer 162, Est GFR (MDRD) Non-Af 134, BUN/Creatinine Ratio 22.6 H, Glucose 97, Calcium 8.0 L, Magnesium 2.2 Current Medications Acetaminophen (Acetaminophen 325 Mg Tablet) 650 mg PO Q4H PRN PRN PRN Reason: HEADACHE/FEVER (T>100F) Last Admin: 05/13/20 10:22 Dose: 650 mg Documented by: Ascorbic Acid (Ascorbic Acid 500 Mg Tablet) 500 mg PO DAILY@0800 [facility] Last Admin: 05/13/20 08:27 Dose: 500 mg Documented by: Cyanocobalamin (Cyanocobalamin 500 Mcg Tablet) 2,500 mcg PO DAILY [facility] Last Admin: 05/13/20 08:27 Dose: 2,500 mcg Documented by: Diazepam (Diazepam 5 Mg Tablet) 5 mg PO Q6H PRN PRN PRN Reason: Muscle Spasms Last Admin: 05/09/20 15:28 Dose: 5 mg Documented by: Enteral Nutritional Formula (Ensure Surgery 237 Ml Liquid) 237 ml PO TIDCM [facility] Last Admin: 05/13/20 13:00 Dose: 237 ml Documented by: Famotidine (Famotidine 20 Mg Tablet) 20 mg PO BID [facility] Last Admin: 05/13/20 08:26 Dose: 20 mg Documented by: Folic Acid (Folic Acid 1 Mg Tablet) 1.5 mg PO DAILY@0800 [facility] Last Admin: 05/13/20 08:24 Dose: 1.5 mg Documented by: Hydroxychloroquine Sulfate ([facility]) [facility] Last Admin: 05/11/20 11:30 Dose: 200 mg Documented by: Methotrexate (Methotrexate 2.5 Mg Tablet) 20 mg PO Bui@1000 [facility] Metoprolol Tartrate (Metoprolol Tartrate 25 Mg Tablet) 25 mg PO BID [facility] Last Admin: 05/13/20 08:25 Dose: 25 mg Documented by: Morphine Sulfate (Morphine 4 Mg/Ml Syringe) 2 - 4 mg IV Q2H PRN PRN PRN Reason: Pain Score 6-10 Last Admin: 05/08/20 17:35 Dose: 4 mg Documented by: Morphine Sulfate (Morphine 2 Mg/Ml Syringe) 2 - 4 mg IV Q2H PRN PRN PRN Reason: Pain Score 6-10 Last Admin: 05/11/20 11:32 Dose: 2 mg Documented by: Multivitamins/Minerals (Multivitamins,Ther W-Minerals Tablet) 1 tablet PO DAILY@0800 [facility] Last Admin: 05/13/20 08:24 Dose: 1 tablet Documented by: Ondansetron HCl (Ondansetron 4 Mg/2 Ml Vial) 4 mg IV Q8H PRN PRN PRN Reason: NAUSEA Last Admin: 05/12/20 02:19 Dose: 4 mg Documented by: Oxycodone HCl (Oxycodone 5 Mg Tablet) 2.5 - 5 mg PO Q4H PRN PRN PRN Reason: Pain Score 6-10 Last Admin: 05/13/20 13:05 Dose: 5 mg Documented by: Senna/Docusate Sodium (Senna/Docusate Sodium 1 Tablet) 2 tablet PO BID [facility] Last Admin: 05/13/20 08:26 Dose: 2 tablet Documented by: Sodium Chloride (0.9% Nacl Peripheral Flush Adult/Peds) 5 - 15 ml IV UD PRN PRN Reason: SALINE FLUSH Last Admin: 05/12/20 13:34 Dose: 10 ml Documented by: Sodium Chloride (0.9% Saline Lock 10 Ml Syringe) 10 - 40 ml IV UD PRN PRN Reason: SALINE FLUSH Topiramate (Topiramate 25 Mg Tablet) 25 mg PO BID [facility] Last Admin: 05/13/20 08:28 Dose: 25 mg Documented by: Trazodone HCl (Trazodone 50 Mg Tablet) 150 mg PO QHS [facility] Last Admin: 05/13/20 02:17 Dose: 150 mg Documented by: Zolpidem Tartrate (Zolpidem Tartrate 5 Mg Tablet) 5 mg PO QHS PRN PRN PRN Reason: INSOMNIA Last Admin: 05/13/20 00:01 Dose: 5 mg Documented by: Medical Necessity - Tobacco Use Smoking Status: Former smoker Tobacco Use: Non-smoker Assessment/Plan All Active Problems (Last Updated 04/06/20 @ 10:53 by Tracy Gottlieb) Atrial fibrillation (Acute) Recurrent umbilical hernia (Resolved) #Afib wit RVR * now converted to NSR * Started on p.o. metoprolol 25 mg twice daily. Heart rate has remained well controlled. * TSH WNL * Per discussion with spine surgery, patient to start anticoagulation tomorrow. We will therefore start on Eliquis 2.5 mg twice daily from tomorrow. * #s/p laminectomy * management as per neurosurgery. * pain medication as per neurosurgery * #BPH: on flomax. Will hold o/a of low BP #Rheumatoid arthritis * on methotrexate and golimumab * Resume hydroxychloroquine. * #Hypotension: * Resolved. DVT prophylaxis; SCDs. Start Eliquis 2.5 mg twice daily from tomorrow Disposition: Patient okay to discharge from hospital standpoint. As mentioned, to start on embolic prophylaxis with Eliquis 2.5 mg twice daily starting tomorrow 05/14/2020. Okay for discharge to transitional care unit. Inpatient E&M: 40792 Subs Hosp L2
--- NOTE | 2020-05-13 15:26 | PCM.TXEXTCAR ---
- Diet 05/10/20 16:49 Diet: Regular - General Is pt able to select menu?: Yes - Wound(s) lower back Wound Type: Surgical Incision - Suggestions for Active Care Change Position every (hours): 2 Hours to sit in a chair: 2 Times a day to sit in chair: 3 - Therapies Weight Bearing: Full weight bearing Physical Therapy: Eval and Treat - Allergies/Procedures Done in Hospital Allergies/Adverse Reactions: Allergies No Known Allergies Allergy (Verified 05/07/20 06:07) - Type of Care/Length of Stay Estimated LOS: Convalescent Care Less Than 30 days Type of Care Needed: Skilled Rehab Potential: Fair Prognosis: Fair - Additional Orders/Day of Discharge Day of Discharge: 05/13/20 - Follow Up Care Primary Care Physician: Gloria Hazel MD [Primary Care Provider] - When: 1 and a half weeks
--- NOTE | 2020-05-13 17:37 | DS_ITS ---
DATE OF ADMISSION 05/09/20 DATE OF DISCHARGE 05/13/20 Discharge Date and Diagnosis - Problem List Patient Problems: Active and Suspected Problems (Last Updated 04/06/20 @ 10:53 by Tracy Gottlieb) Debility (Acute) Lumbar spinal stenosis (Acute) Atrial fibrillation with rapid ventricular response (Acute) Date of Admission: 05/13/20 - to TCU Date of Discharge: 05/13/20 - from [facility] - Primary Discharge Diagnosis Acute Problems: Active Problems (Last Updated 04/06/20 @ 10:53 by Tracy Gottlieb) Debility (Acute) Lumbar spinal stenosis (Acute) Atrial fibrillation with rapid ventricular response (Acute) - Secondary Discharge Diagnosis Chronic Problems: Chronic Problems (Last Updated 04/06/20 @ 10:53 by Tracy Gottlieb) Muscle spasm (Chronic) GERD (gastroesophageal reflux disease) (Chronic) Rheumatoid arthritis (Chronic) SVT (supraventricular tachycardia) (Chronic) Insomnia (Chronic) BPH (benign prostatic hyperplasia) (Chronic) Abnormal EKG (Chronic) Abnormal echocardiogram (Chronic) Left ventricular hypokinesis (Chronic) Leg pain, bilateral (Chronic) Edema (Chronic) Hospital Course and Treatment Operations: - - 3 level laminectomy Summary of Care Provided: The patient is a 79 year old M Patient patient is discharged from [place] [address] to the transitional care unit. His his hospital course was relatively unremarkable. He spent several postop days in [place] [address]. He was slow to recover from his three-level laminectomy. He has been transferred to the transitional care unit for rehab as he lives alone. In addition the original plan was for him to stay with his daughter and her family however they are under quarantine at the time of his discharge. Thus he has been transferred to the transitional care unit. Plus he needs some rehab that can be done there. Patient Problems: Active and Suspected Problems (Last Updated 04/06/20 @ 10:53 by Tracy Gottlieb) Debility (Acute) Lumbar spinal stenosis (Acute) Atrial fibrillation with rapid ventricular response (Acute) Objective: see H and P from accepting provider in tcu - Physical Exam Vitals/I&O's: Vital Signs Temp Pulse Resp BP Pulse Ox 98.6 F 65 16 93/50 L 97 05/27/20 14:02 05/27/20 14:02 05/27/20 14:02 05/27/20 14:02 05/27/20 14:02 Oxygen Delivery Method Room Air Weight: 128 lb 2 oz Body Mass Index (BMI) 26.4 Intake and Output for Last 24 Hours 05/25/20 05/26/20 05/27/20 23:59 23:59 23:59 Intake Total 720 / 720 600 / 600 360 / 360 Output Total 350 / 350 150 / 150 Balance 720 / 720 250 / 250 210 / 210 Microbiology Past 72 Hours 05/25/20 12:05 Nasal Secretion SARS-CoV-2 Antigen (Rapid) - Final Current Medications Acetaminophen (Acetaminophen 500 Mg Tablet) 1,000 mg PO Q6H PRN PRN Reason: Pain Score 1-3 Last Admin: 05/21/20 14:26 Dose: 1,000 mg Documented by: Apixaban (Apixaban 2.5 Mg Tablet) 2.5 mg PO BID [facility] Last Admin: 05/27/20 04:56 Dose: 2.5 mg Documented by: Baclofen (Baclofen 10 Mg Tablet) 10 mg PO TID PRN PRN Reason: MUSCLE SPASM Last Admin: 05/22/20 02:31 Dose: 10 mg Documented by: Bisacodyl (Bisacodyl 10 Mg Suppository) 10 mg RECTAL DAILY PRN PRN Reason: Constipation Calamine/Phenol (Menthol/Lanolin/Calamine/Znox 113 Gm Tube) 1 applic TOPICAL 0600,2200 [facility]; Protocol Last Admin: 05/27/20 04:57 Dose: 1 applicatio Documented by: Compound Med (Arthritis Pain Compound 60 Click Tube) 0 click TOPICAL TID [facility]; Protocol Last Admin: 05/27/20 13:28 Dose: 1 click Documented by: Fentanyl (Fentanyl 12 Mcg Patch) 12 mcg TD Q3D [facility] Last Admin: 05/25/20 13:33 Dose: 12 mcg Documented by: Finasteride (Finasteride 5 Mg Tablet) 5 mg PO DAILY [facility] Last Admin: 05/27/20 04:57 Dose: 5 mg Documented by: Folic Acid (Folic Acid 1 Mg Tablet) 1 mg PO DAILY@0800 [facility] Last Admin: 05/27/20 08:26 Dose: 1 mg Documented by: Furosemide (Furosemide 20 Mg Tablet) 20 mg PO MOWEFR [facility] Last Admin: 05/27/20 04:57 Dose: 20 mg Documented by: Hydrocortisone (Hydrocortisone 2.5% Crm) 1 applic TOPICAL BID PRN PRN; Protocol PRN Reason: Apply to rash on back for irritation Last Admin: 05/18/20 09:39 Dose: 1 applicatio Documented by: Hydroxychloroquine Sulfate ([facility] 200 [facility]) [facility] Last Admin: 05/27/20 08:26 Dose: 200 mg Documented by: Magnesium Hydroxide (Magnesium Hydroxide 30 Ml Udc) 30 ml PO DAILY PRN PRN Reason: Constipation Methotrexate (Methotrexate 2.5 Mg Tablet) 20 mg PO JONES [facility] Last Admin: 05/24/20 11:42 Dose: 20 mg Documented by: Metoprolol Tartrate (Metoprolol Tartrate 25 Mg Tablet) 25 mg PO BID [facility] Last Admin: 05/27/20 04:56 Dose: 25 mg Documented by: Mirtazapine (Mirtazapine 15 Mg Tablet) 7.5 mg PO QHS [facility] Last Admin: 05/26/20 22:30 Dose: 7.5 mg Documented by: Nutritional Formula (Lactose Free) (Ensure Enlive 120 Ml Liquid) 120 ml PO 4X/DAY [facility] Last Admin: 05/27/20 10:45 Dose: 120 ml Documented by: Oxycodone HCl (Oxycodone 5 Mg Tablet) 10 mg PO Q4H PRN PRN Reason: Pain Score 6-10 Last Admin: 05/27/20 04:53 Dose: 10 mg Documented by: Polyethylene Glycol (Polyethylene Glycol 3350 17 Gm Packet) 17 gm PO DAILY [facility] Last Admin: 05/27/20 04:54 Dose: 17 gm Documented by: Senna/Docusate Sodium (Senna/Docusate Sodium 1 Tablet) 2 tablet PO BID [facility] Last Admin: 05/27/20 04:55 Dose: 1 tablet Documented by: Sodium Chloride (0.9% Saline Lock 10 Ml Syringe) 10 - 40 ml IV UD PRN PRN Reason: SALINE FLUSH Last Admin: 05/14/20 05:41 Dose: 10 ml Documented by: Tamsulosin HCl (Tamsulosin Hcl 0.4 Mg Capsule) 0.4 mg PO DAILY@1730 [facility] Last Admin: 05/26/20 17:33 Dose: 0.4 mg Documented by: Topiramate (Topiramate 25 Mg Tablet) 25 mg PO BID [facility] Last Admin: 05/27/20 04:56 Dose: 25 mg Documented by: Tramadol HCl (Tramadol 50 Mg Tablet) 50 mg PO Q6H PRN PRN PRN Reason: Pain Score 4-5 Last Admin: 05/22/20 02:31 Dose: 50 mg Documented by: Trazodone HCl (Trazodone 100 Mg Tablet) 150 mg PO QHS [facility] Last Admin: 05/26/20 22:28 Dose: 150 mg Documented by: Home Medications: Medications to take at Discharge Calcium Carb/Vitamin D [Caltrate-600 With Vit D Tab] 1 tab PO DAILY@0800 10/09/14 Hydroxychloroquine [Plaquenil] 200 mg PO BIDCM 10/09/14 Trazodone HCl 150 mg PO QHS 09/22/17 Finasteride [Proscar] 5 mg PO DAILY 12/10/18 methotrexate sodium 2.5 mg tablet 20 mg PO JONES 01/29/19 ascorbic acid (vitamin C) 500 mg chewable tablet 500 mg PO DAILY tab 01/30/19 golimumab 12.5 mg/mL intravenous solution 135 mg IV [id number] ml 01/30/19 mecobalamin (vitamin B12) 5,000 mcg disintegrating tablet 2,500 mcg PO DAILY tab 01/30/19 topiramate 25 mg tablet 25 mg PO BID 01/30/19 baclofen 10 mg tablet 10 mg PO TID PRN 11/11/19 folic acid 800 mcg tablet 1.6 mg PO DAILY tab 11/11/19 oxycodone-acetaminophen 5 mg-325 mg tablet 1 tab PO TID PRN tab 11/11/19 CBD Tincture Oil 250 mg TOPICAL PRN PRN 04/06/20 herbal supplement 1 cap PO DAILY 04/06/20 giocnmyt-oosyctpu-gbglf acid 400 mcg-vit K 20 mcg-lycop 300 mcg tablet 1 tab PO DAILY 04/06/20 turmeric 400 mg capsule 400 mg PO DAILY cap 04/06/20 Apixaban [Eliquis] 2.5 mg PO BID 05/13/20 Furosemide [Lasix] 20 mg PO MOWEFR 05/13/20 Metoprolol Tartrate [Lopressor (beta santiago)] 25 mg PO BID 05/13/20 Primary Care Physician: Gloria Hazel MD [Primary Care Provider] - Please Follow Up With: Gloria Hazel MD When: 1.5 weeks Please Follow Up With: Vlad Alfaro DO When: 05/15/20 Medical Necessity - Tobacco Use Smoking Status: Former smoker Tobacco Use: Non-smoker Meaningful Use Info Meaningful Use Diagnoses (Choose all that apply): None applicable
== END 2020-05-13 17:37 | disposition skilled nursing facility (03) | DRG 517 ==
LOC: MS3 16:09 → SDC 05-08 08:04 → MS3 05-11 07:21 → PCU 05-11 11:16
PROVIDERS: Anesthesiology; Admitting Provider Orthopaedic Surgery; PCP Family Medicine; Referring Provider Orthopaedic Surgery; Visit Provider Student in an Organized Health Care Education/Training Program
PROC: (CPT 63030; principal; 2020-05-07 07:00)
DX: M48.061 Spinal stenosis, lumbar region without neurogenic claudication (principal); M43.16 Spondylolisthesis, lumbar region; Z87.891 Personal history of nicotine dependence; M06.9 Rheumatoid arthritis, unspecified; Z79.899 Other long term (current) drug therapy; N40.0 Benign prostatic hyperplasia without lower urinary tract symptoms; I95.9 Hypotension, unspecified; I48.91 Unspecified atrial fibrillation
CPT/HCPCS: 36415; 72020; 80048; 80076; 82962; 83735; 84443; 85014; 85018; 85025; 85610; 85730; 86703; 86704; 86705; 86706; 86708; 86709; 86803; 87081; 87340; 87426; 93005; 93306; 97110; 97116; 97162; 97166; 97530; 97535; C9803; J7030; J7040; J7120; Q9957; A4216; C8929; J2405; J3475; J8610

== ENCOUNTER 2020-05-13 18:04 | Inpatient (IN) | payer MEDICARE, SELFPAY ==
[2020-05-07 13:58] VITALS: BMI 24.0
[2020-05-13 18:18] VITALS: BP 110/62; PULSE 86; RESP 16; TEMP 37.2; O2SAT 98; BMI 26.4
[2020-05-13] MEDS: oxyCODONE 5 MG Tablet PO (20:02)
--- NOTE | 2020-05-13 20:52 | HP.PCM_ITS ---
Problem List (1) Debility Status: Acute (2) Lumbar spinal stenosis Status: Acute (3) Atrial fibrillation with rapid ventricular response Status: Acute (4) Muscle spasm Status: Chronic (5) GERD (gastroesophageal reflux disease) Status: Chronic (6) Rheumatoid arthritis Status: Chronic (7) SVT (supraventricular tachycardia) Status: Chronic (8) Insomnia Status: Chronic (9) BPH (benign prostatic hyperplasia) Status: Chronic History of Present Illness Date of Admission: 05/13/20 Chief Complaint: Here for rehabilitation, strengthening, prior to discharge home alone. 05/07/20 The patient is a 79 year old Male with below past medical history underwent decompression laminectomy L4-5, L3-4, L2-3 per Ortho spine. 04/27/20 EKG sinus rhythm with premature atrial contractions, low voltage QRS, Borderline EKG. 05/08/20 Lion removed. Pain control with IV morphine, PO oxycodone. 05/10/20 Increased oral fluid intake, stop IV fluids. Hyponatremia resolved. 05/11/20 Cardiology consulted for new onset atrial fibrillation with rapid ventricular response. Amiodarone, Digoxin added. 05/12/20 Atrial fibrillation converted to normal sinus rhythm. Was on Amiodarone drip, loaded with Digoxin. Hold Tamsulosin secondary to low blood pressure. Hold Hydroxychloroquine due to prolonged QT with methotrexate. 05/13/20 Echo EF 50-55 % Small pericardial effusion. Gatzke: Hypokinetic. 05/13/20 Admit to TCU with debility, here for rehabilitation, strengthening, prior to discharge home alone. Past Medical History Past Medical History (Chronic Problems): Chronic Problems (Last Updated 04/06/20 @ 10:53 by Tracy Gottlieb) Muscle spasm (Chronic) GERD (gastroesophageal reflux disease) (Chronic) Rheumatoid arthritis (Chronic) SVT (supraventricular tachycardia) (Chronic) Insomnia (Chronic) BPH (benign prostatic hyperplasia) (Chronic) Abnormal EKG (Chronic) Abnormal echocardiogram (Chronic) Left ventricular hypokinesis (Chronic) Leg pain, bilateral (Chronic) Edema (Chronic) Medical History: Medical History (Last Updated 04/06/20 @ 10:53 by Tracy Gottlieb) Abnormal EKG (Chronic) R94.31 Abnormal echocardiogram (Chronic) R93.1 Left ventricular hypokinesis (Chronic) I51.89 Leg pain, bilateral (Chronic) M79.604, M79.605 Edema (Chronic) R60.9 H/o finger stitches Left index H/o three feet of intestines removed Hemorrhoids K64.9 PAT (paroxysmal atrial tachycardia) I47.1 SVT (supraventricular tachycardia) I47.1 Back pain M54.9 Rheumatoid arthritis M06.9 Allergies No Known Allergies Allergy (Verified 05/07/20 06:07) Home Medications: Ambulatory Orders Medication Instructions Recorded Calcium Carb/Vitamin D 1 tab PO DAILY@0800 10/09/14 [Caltrate-600 With Vit D Tab] Hydroxychloroquine [Plaquenil] 200 mg PO BIDCM 10/09/14 Trazodone HCl 150 mg PO QHS 09/22/17 Finasteride [Proscar] 5 mg PO DAILY 12/10/18 methotrexate sodium 2.5 mg tablet 20 mg PO JONES 01/29/19 ascorbic acid (vitamin C) 500 mg 500 mg PO DAILY tab 01/30/19 chewable tablet golimumab 12.5 mg/mL intravenous 135 mg IV [id number] ml 01/30/19 solution mecobalamin (vitamin B12) 5,000 2,500 mcg PO DAILY tab 01/30/19 mcg disintegrating tablet topiramate 25 mg tablet 25 mg PO BID 01/30/19 baclofen 10 mg tablet 10 mg PO TID PRN 11/11/19 folic acid 800 mcg tablet 1.6 mg PO DAILY tab 11/11/19 oxycodone-acetaminophen 5 mg-325 1 tab PO TID PRN tab 11/11/19 mg tablet CBD Tincture Oil 250 mg TOPICAL PRN PRN 04/06/20 herbal supplement 1 cap PO DAILY 04/06/20 gxknvwae-vuacefmv-oferz acid 400 1 tab PO DAILY 04/06/20 mcg-vit K 20 mcg-lycop 300 mcg tablet turmeric 400 mg capsule 400 mg PO DAILY cap 04/06/20 Apixaban [Eliquis] 2.5 mg PO BID 05/13/20 Furosemide [Lasix] 20 mg PO MOWEFR 05/13/20 Metoprolol Tartrate [Lopressor 25 mg PO BID 05/13/20 (beta santiago)] Surgical History: Surgical History (Last Updated 04/06/20 @ 10:50 by Tracy Gottlieb) H/O colonoscopy Z98.890 H/O umbilical hernia repair Z98.890, Z87.19 S/P appendectomy Z90.49 S/P cataract surgery Z98.49 Bilateral S/P hemorrhoidectomy Z98.890, Z87.19 S/P inguinal hernia repair Z98.890, Z87.19 bilateral S/P laparoscopic cholecystectomy Z90.49 S/P left colectomy Z90.49 S/P rotator cuff repair Z98.890 Bilateral S/P vasectomy Z98.52 Surgical History: adenoidectomy, cataract, cholecystectomy - Laparoscopic., colectomy - Left., herniorrhaphy - Umbilical, Inguinal., rotator cuff repair, - - Hemorrhoidectomy, Vasectomy. Lives: Alone Smoking Status: Former smoker Tobacco Use: Non-smoker Alcohol: None Drugs: None - *Family History Maternal Family History: Family History (Last Reviewed 11/11/19 @ 14:[address] Laith Garcia MD) Father CVA (cerebral vascular accident) Brother CAD (coronary artery disease) Mother CVA (cerebral vascular accident) Grandfather Cancer History Items: No pertinent history Paternal Family History: Family History (Last Reviewed 11/11/19 @ 14:[address] Laith Garcia MD) Father CVA (cerebral vascular accident) Brother CAD (coronary artery disease) Mother CVA (cerebral vascular accident) Grandfather Cancer History Items: No pertinent history Review of Systems Constitutional: Denies: Chills, Fever, Weight Change HEENT: Denies: Head Aches, Sinus Congestion, Sinus Drainage Cardiovascular: Denies: Chest Pain, Palpitations Respiratory: Denies: Cough, Shortness of breath at rest, Sputum production Gastrointestinal: Denies: Abdominal Pain, Nausea, Vomiting Genitourinary: Denies: Dysuria Musculoskeletal: Reports: Back Pain. Denies: Joint Pain, Joint Tenderness Skin: Denies: Rash, Wounds Neurological: Reports: - - Insomnia.. Denies: Focal weakness, Numbness, Tingling Psychiatric: Denies: Anxiety, Depression, Homicidal Ideations, Suicidal Ideations Hematologic/ Lymphatic: Denies: Easy Bruising, Easy Bleeding VTE Information - Inpt Only VTE Present on Admission: No VTE Mechan Device Prophylaxis: Knee High BIA Hose VTE Pharm Prophylaxis ordered?: No Reason prophylaxis not ordered:: Treatment Not Indicated Patient Problems: Active and Suspected Problems (Last Updated 04/06/20 @ 10:53 by Tracy Gottlieb) Debility (Acute) Lumbar spinal stenosis (Acute) Atrial fibrillation with rapid ventricular response (Acute) - Physical Exam Vitals/I&O's: Vital Signs Temp Pulse Resp BP Pulse Ox 99.0 F 86 16 110/62 98 05/13/20 18:18 05/13/20 18:18 05/13/20 18:18 05/13/20 18:18 05/13/20 18:18 Oxygen Delivery Method Room Air Weight: 65.459 kg Body Mass Index (BMI) 26.4 General: Alert, Oriented x3, Cooperative HEENT: Atraumatic, PERRLA, EOMI, Normocephalic Neck: Supple, No JVD, Negative Carotid Bruits Lungs: Clear to auscultation, Normal air movement Cardiovascular: Regular rate, No murmurs Abdomen: Bowel Sounds Present, Soft, Non Tender Extremities: No edema, Capillary Refill Less than 3 Seconds Skin: No rashes, No breakdown Musculoskeletal: No Tenderness to Palpation of Joints or Extremities Neurological: Cranial nerves II-XII grossly intact Psych/Mental Status: Normal Affect, Appropriate Current Medications Acetaminophen (Acetaminophen 500 Mg Tablet) 1,000 mg PO Q6H PRN PRN Reason: Pain Score 1-3 Apixaban (Apixaban 2.5 Mg Tablet) 2.5 mg PO BID PATRICE Baclofen (Baclofen 10 Mg Tablet) 10 mg PO TID PRN PRN Reason: MUSCLE SPASM Finasteride (Finasteride 5 Mg Tablet) 5 mg PO DAILY PATRICE Folic Acid (Folic Acid 1 Mg Tablet) 1 mg PO DAILY@0800 PATRICE Furosemide (Furosemide 20 Mg Tablet) 20 mg PO MOWEFR PATRICE Hydroxychloroquine Sulfate (Hydroxychloroquine 200 Mg Tablet) 200 mg PO BIDCM PATRICE Methotrexate (Methotrexate 2.5 Mg Tablet) 20 mg PO JONES PATRICE Metoprolol Tartrate (Metoprolol Tartrate 25 Mg Tablet) 25 mg PO BID PATRICE Oxycodone HCl (Oxycodone 5 Mg Tablet) 10 mg PO Q4H PRN PRN Reason: Pain Score 6-10 Sodium Chloride (0.9% Saline Lock 10 Ml Syringe) 10 - 40 ml IV UD PRN PRN Reason: SALINE FLUSH Topiramate (Topiramate 25 Mg Tablet) 25 mg PO BID PATRICE Tramadol HCl (Tramadol 50 Mg Tablet) 50 mg PO Q6H PRN PRN PRN Reason: Pain Score 4-5 Trazodone HCl (Trazodone 100 Mg Tablet) 150 mg PO QHS PATRICE Tuberculin PPD (Tuberculin,Purif.Prot.Deriv. 50 Tu/Ml Vial) 5 tu ID X1 ONE Stop: 05/14/20 10:01 Tuberculin PPD (Tuberculin,Purif.Prot.Deriv. 50 Tu/Ml Vial) 5 tu ID X1 ONE Stop: 05/21/20 10:01 Assessment/Plan All Active Problems (Last Updated 04/06/20 @ 10:53 by Tracy Gottlieb) Atrial fibrillation (Acute) Debility (Acute) Lumbar spinal stenosis (Acute) Atrial fibrillation with rapid ventricular response (Acute) Recurrent umbilical hernia (Resolved) 79 year old male with below past medical history hospitalized for lumbar spine surgery 05/07/20, postoperative course complicated by atrial fibrillation with rapid ventricular response, admitted to TCU with debility, here for rehabilitation, strengthening, prior to discharge home alone. * Debility - PT/OT. * Pain - Tylenol 1000MG Q6H PRN pain (1-3), Tramadol 50MG Q6H PRN pain (4-5), Oxycodone 10MG Q4H PRN pain (6-10). * Bowel - Miralax 17GM daily, Senna/colace 2 tablets BID, MOM 30ML daily PRN, Dulcolax 10MG ME daily PRN. * Adult immunization - Administer Prevnar 13, Pneumovax 23, Fluzone as appropriate. * DVT prophylaxis - Not necessary, already on Eliquis. * Atrial Fibrillation - Metoprolol 25MG BID, Eliquis 2.5MG BID. * Muscle spasm - Baclofen 10MG TID PRN. * BPH - Finasteride 5MG Daily, Tamsulosin 0.4MG on hold due to hypotension. * Rheumatoid Arthritis - Plaquenil 200MG BID, MTX 20MG per week, Folic acid 1MG daily. * Edema - Lasix 20MG MWF. * Neuropathic pain - Topamax 25MG BID. * Insomnia - Trazodone 150MG QHS.
[2020-05-13] MEDS: traZODone 100 MG Tablet 150 MG PO (22:20)
[2020-05-13 22:55] VITALS: RESP 16
[2020-05-13] MEDS: Acetaminophen 500 MG Tablet 1000 MG PO (23:00)
[2020-05-14 05:30] VITALS: BP 106/62; PULSE 70; RESP 16; TEMP 37; O2SAT 96
[2020-05-14 05:31] VITALS: BP 106/62; PULSE 70
[2020-05-14] MEDS: Metoprolol Tartrate 25 MG Tablet PO ×2 (05:31→17:42)
[2020-05-14] MEDS: Polyethylene Glycol 3350 17 GM PACKET PO (05:31)
[2020-05-14] MEDS: Finasteride 5 MG Tablet PO (05:31)
[2020-05-14] MEDS: APIXABAN 2.5 MG TABLET PO ×2 (05:31→17:40)
[2020-05-14] MEDS: Topiramate 25 MG Tablet PO ×2 (05:31→17:41)
[2020-05-14] MEDS: Senna/Docusate Sodium 1 Tablet 2 TABLET PO ×2 (05:32→17:40)
[2020-05-14] MEDS: oxyCODONE 5 MG Tablet 10 MG PO ×3 (05:32→23:30)
[2020-05-14] MEDS: 0.9% Saline Lock 10 ML Syringe IV (05:41)
[2020-05-14 06:13] LABS: Absolute Lymphocyte Count 1.12 X10^3/uL (0.83-4.51); Absolute Neutrophil Count 3.6 X10^3/uL (2.0-7.7); Basophil# 0.03 X10^3/uL; Basophil% 0.5 % (0-1); Eosinophil# 0.39 X10^3/uL; Eosinophils% 6.5 % (0-5); Hematocrit 31.8 % (40-54); Hemoglobin 10.5 g/dL (13.0-16.5); Lymphocyte # 1.12 X10^3/ul (4.0); Lymphocyte % 18.7 % (19-41); Mean Corpuscular Hgb 32.2 pg (27.0-32.0); Mean Corpuscular Volume 97.5 fL (80-94); Mean Platelet Vol. 10.7 fl (6.2-12.0); Monocyte# 0.79 X10^3/uL; Monocyte% 13.2 % (0-10); NRBC Flagged by Analyzer 0 % (0-5); Neutrophil # 3.64 X10^3/uL (2.7-7.7); Neutrophil % 60.8 % (47-70); Platelet Count 221 K/mm3 (150-450); RBC Distribution Width CV 13.2 % (11.6-14.6); RBC Distribution Width SD 47.2 fl (35.1-43.9); Red Blood Count 3.26 M/mm3 (4.6-6.2)
[2020-05-14 06:44] LABS: Anion Gap 6 (5-15); BUN 11 mg/dL (7-18); BUN/Creat Ratio 18.7 RATIO (10-20); Calcium,Total 8.2 mg/dL (8.5-10.1); Chloride 112 mmol/L (98-107); Creatinine, Serum 0.59 mg/dL (0.70-1.30); EST Glomerular Filtration Rate 142 mL/min (>60); Est Glom Filt Rate - Afr Amer 172 mL/min (>60); Estimated Creatinine Clearance 47.78 ml/min; Glucose 85 mg/dL (74-106); Potassium 4.1 mmol/L (3.5-5.1); Sodium Level 141 mmol/L (136-145)
[2020-05-14] MEDS: Hydroxychloroquine 200 MG Tablet PO ×2 (08:41→17:40)
[2020-05-14] MEDS: Folic Acid 1 MG Tablet PO (08:41)
[2020-05-14 10:00] VITALS: PULSE 74; RESP 18; O2SAT 95
[2020-05-14] MEDS: Tuberculin,Purif.prot.deriv. 50 TU/ML Vial 5 ML ID (10:50)
--- NOTE | 2020-05-14 10:54 | NURSING ---
Pt arrived on unit with SL RFA no date on label, SL pulled today by this nurse, catheter intact no c/o pain.
[2020-05-14 13:39] VITALS: BP 106/59; PULSE 77; RESP 14; TEMP 36.2; O2SAT 98
--- NOTE | 2020-05-14 13:42 | PCM.PN.RX ---
<Erica Balbuena - Last Filed: 05/14/20 13:42> Progress Note - Pharmacy Subjective: TCU Admission Objective: Allergies No Known Allergies Allergy (Verified 05/07/20 06:07) Current Medications Generic Name Dose Route Start Last Admin Trade Name Freq PRN Reason Stop Dose Admin Acetaminophen 1,000 mg 05/13/20 20:14 05/13/20 23:00 Acetaminophen 500 Mg Tablet PO 1,000 mg Q6H PRN Administration Pain Score 1-3 Apixaban 2.5 mg 05/14/20 06:00 05/14/20 05:31 Apixaban 2.5 Mg Tablet PO 2.5 mg BID PATRICE Administration Baclofen 10 mg 05/13/20 18:31 Baclofen 10 Mg Tablet PO TID PRN MUSCLE SPASM Bisacodyl 10 mg 05/13/20 21:08 Bisacodyl 10 Mg Suppository RECTAL DAILY PRN Constipation Finasteride 5 mg 05/14/20 06:00 05/14/20 05:31 Finasteride 5 Mg Tablet PO 5 mg DAILY PATRICE Administration Folic Acid 1 mg 05/14/20 08:00 05/14/20 08:41 Folic Acid 1 Mg Tablet PO 1 mg DAILY@0800 PATRICE Administration Furosemide 20 mg 05/15/20 06:00 Furosemide 20 Mg Tablet PO MOWEFR PATRICE Hydroxychloroquine Sulfate 200 mg 05/14/20 08:00 05/14/20 08:41 Hydroxychloroquine 200 Mg Tablet PO 200 mg BIDCM PATRICE Administration Magnesium Hydroxide 30 ml 05/13/20 21:07 Magnesium Hydroxide 30 Ml Udc PO DAILY PRN Constipation Methotrexate 20 mg 05/17/20 10:00 Methotrexate 2.5 Mg Tablet PO JONES PATRICE Metoprolol Tartrate 25 mg 05/14/20 06:00 05/14/20 05:31 Metoprolol Tartrate 25 Mg Tablet PO 25 mg BID PATRICE Administration Nutritional Formula (Lactose Free) 120 ml 05/14/20 06:00 05/14/20 11:05 Ensure Enlive 120 Ml Liquid PO 120 ml 4X/DAY PATRICE Administration Oxycodone HCl 10 mg 05/13/20 20:15 05/14/20 05:32 Oxycodone 5 Mg Tablet PO 10 mg Q4H PRN Administration Pain Score 6-10 Polyethylene Glycol 17 gm 05/14/20 06:00 05/14/20 05:31 Polyethylene Glycol 3350 17 Gm Packet PO 17 gm DAILY PATRICE Administration Senna/Docusate Sodium 2 tablet 05/14/20 06:00 05/14/20 05:32 Senna/Docusate Sodium 1 Tablet PO 2 tablet BID PATRICE Administration Sodium Chloride 10 - 40 ml 05/13/20 20:13 05/14/20 05:41 0.9% Saline Lock 10 Ml Syringe IV 10 ml UD PRN Administration SALINE FLUSH Topiramate 25 mg 05/14/20 06:00 05/14/20 05:31 Topiramate 25 Mg Tablet PO 25 mg BID PATRICE Administration Tramadol HCl 50 mg 05/13/20 20:14 Tramadol 50 Mg Tablet PO Q6H PRN PRN Pain Score 4-5 Trazodone HCl 150 mg 05/13/20 22:00 05/13/20 22:20 Trazodone 100 Mg Tablet PO 150 mg QHS PATRICE Administration Tuberculin PPD 5 tu 05/21/20 10:00 Tuberculin,Purif.Prot.Deriv. 50 Tu/Ml Vial ID 05/21/20 10:01 X1 ONE Problem List (Last Updated 04/06/20 @ 10:53 by Tracy Gottlieb) Debility (Acute) Lumbar spinal stenosis (Acute) Atrial fibrillation with rapid ventricular response (Acute) Muscle spasm (Chronic) GERD (gastroesophageal reflux disease) (Chronic) Rheumatoid arthritis (Chronic) SVT (supraventricular tachycardia) (Chronic) Insomnia (Chronic) BPH (benign prostatic hyperplasia) (Chronic) Vital Signs Temp Pulse Resp BP Pulse Ox 97.2 F L 77 14 106/59 L 98 05/14/20 13:39 05/14/20 13:39 05/14/20 13:39 05/14/20 13:39 05/14/20 13:39 Oxygen Delivery Method Room Air Weight: 65.459 kg Body Mass Index (BMI) 26.4 Sodium 141 mmol/L (136-145) 05/14/20 05:08 Potassium 4.1 mmol/L (3.5-5.1) 05/14/20 05:08 Chloride 112 mmol/L (98-107) H 05/14/20 05:08 Carbon Dioxide 23.0 mmol/L (21.0-32.0) 05/14/20 05:08 Anion Gap 6 (5-15) 05/14/20 05:08 BUN 11 mg/dL (7-18) 05/14/20 05:08 Creatinine 0.59 mg/dL (0.70-1.30) L 05/14/20 05:08 Est GFR (MDRD) Af Amer 172 mL/min (>60) 05/14/20 05:08 Est GFR (MDRD) Non-Af 142 mL/min (>60) 05/14/20 05:08 BUN/Creatinine Ratio 18.7 RATIO (10-20) 05/14/20 05:08 Glucose 85 mg/dL (74-106) 05/14/20 05:08 Assessment/Plan: 1. Pain: acetaminophen 1000mg PO Q6H PRN pain 1-3/10, tramadol 50mg PO Q6H PRN pain 4-5/10, and oxycodone 10mg PO Q4H PRN pain 6-10/10. Please continue to monitor for increased pain, PRN usage, constipation and respiratory depression. *2. Atrial fibrillation: metoprolol tartrate 25mg PO BID and apixaban 2.5mg PO BID. Please consider changing dose of apixaban to 5mg PO BID (patient weight >60kg, age <80 and SCr <1.5mg/dL). Thanks. Please continue to monitor HR (last 77), BP (last ), S/S of bleeding, and hemoglobin (last 10.5g/dL). 3. Muscle spasm: baclofen 10mg PO TID PRN muscle spasm. Please continue to monitor for muscle spasms and PRN usage. 4. BPH: finasteride 5mg PO daily. Please continue to monitor for urine flow and anticholinergic side effects. 5. Rheumatoid arthritis: methotrexate 20mg PO weekly, hydroxychloroquine 200mg PO BID, and folic acid 1mg PO daily. Please continue to monitor for S/S of RA and infection. 6. Edema: furosemide 20mg PO M//. Please continue to monitor for edema, renal function and potassium (last 4.1 mmol/L). 7. Neuropathic pain: topiramate 25mg PO BID. Please continue to monitor for increased pain, drowsiness, and parasthesias. Psychotropic Medications: 1. Insomnia: trazodone 150mg PO QHS. Please consider GDR by 10/2020 if clinically appropriate. Please continue to monitor for excessive drowsiness. Unnecessary Medications: None Bowel Regimen: Miralax 17gm PO daily, senna/docusate 2T PO BID, MOM 30mL PO daily PRN constipation, and bisacodyl 10mg DE daily PRN constipation. Please continue to monitor for S/S of constipation, diarrhea, and PRN usage. Date of Note:: 05/14/20 - Provider Comments Provider responsibility: Provider responsible to enter orders to implement recommendations <Yogseh Lebron Chi - Last Filed: 05/14/20 17:48> Progress Note - Pharmacy Subjective: [] Objective: Allergies No Known Allergies Allergy (Verified 05/07/20 06:07) Current Medications Generic Name Dose Route Start Last Admin Trade Name Freq PRN Reason Stop Dose Admin Acetaminophen 1,000 mg 05/13/20 20:14 05/13/20 23:00 Acetaminophen 500 Mg Tablet PO 1,000 mg Q6H PRN Administration Pain Score 1-3 Apixaban 2.5 mg 05/14/20 06:00 05/14/20 17:40 Apixaban 2.5 Mg Tablet PO 2.5 mg BID PATRICE Administration Baclofen 10 mg 05/13/20 18:31 Baclofen 10 Mg Tablet PO TID PRN MUSCLE SPASM Bisacodyl 10 mg 05/13/20 21:08 Bisacodyl 10 Mg Suppository RECTAL DAILY PRN Constipation Finasteride 5 mg 05/14/20 06:00 05/14/20 05:31 Finasteride 5 Mg Tablet PO 5 mg DAILY PATRICE Administration Folic Acid 1 mg 05/14/20 08:00 05/14/20 08:41 Folic Acid 1 Mg Tablet PO 1 mg DAILY@0800 PATRICE Administration Furosemide 20 mg 05/15/20 06:00 Furosemide 20 Mg Tablet PO MOWEFR PATRICE Hydroxychloroquine Sulfate 200 mg 05/14/20 08:00 05/14/20 17:40 Hydroxychloroquine 200 Mg Tablet PO 200 mg BIDCM PATRICE Administration Magnesium Hydroxide 30 ml 05/13/20 21:07 Magnesium Hydroxide 30 Ml Udc PO DAILY PRN Constipation Methotrexate 20 mg 05/17/20 10:00 Methotrexate 2.5 Mg Tablet PO JONES PATRICE Metoprolol Tartrate 25 mg 05/14/20 06:00 05/14/20 17:42 Metoprolol Tartrate 25 Mg Tablet PO 25 mg BID PATRICE Administration Nutritional Formula (Lactose Free) 120 ml 05/14/20 06:00 05/14/20 17:40 Ensure Enlive 120 Ml Liquid PO 120 ml 4X/DAY PATRICE Administration Oxycodone HCl 10 mg 05/13/20 20:15 05/14/20 14:43 Oxycodone 5 Mg Tablet PO 10 mg Q4H PRN Administration Pain Score 6-10 Polyethylene Glycol 17 gm 05/14/20 06:00 05/14/20 05:31 Polyethylene Glycol 3350 17 Gm Packet PO 17 gm DAILY PATRICE Administration Senna/Docusate Sodium 2 tablet 05/14/20 06:00 05/14/20 17:40 Senna/Docusate Sodium 1 Tablet PO 2 tablet BID PATRICE Administration Sodium Chloride 10 - 40 ml 05/13/20 20:13 05/14/20 05:41 0.9% Saline Lock 10 Ml Syringe IV 10 ml UD PRN Administration SALINE FLUSH Topiramate 25 mg 05/14/20 06:00 05/14/20 17:41 Topiramate 25 Mg Tablet PO 25 mg BID PATRICE Administration Tramadol HCl 50 mg 05/13/20 20:14 Tramadol 50 Mg Tablet PO Q6H PRN PRN Pain Score 4-5 Trazodone HCl 150 mg 05/13/20 22:00 05/13/20 22:20 Trazodone 100 Mg Tablet PO 150 mg QHS PATRICE Administration Tuberculin PPD 5 tu 05/21/20 10:00 Tuberculin,Purif.Prot.Deriv. 50 Tu/Ml Vial ID 05/21/20 10:01 X1 ONE Problem List (Last Updated 04/06/20 @ 10:53 by Tracy Gottlieb) Debility (Acute) Lumbar spinal stenosis (Acute) Atrial fibrillation with rapid ventricular response (Acute) Muscle spasm (Chronic) GERD (gastroesophageal reflux disease) (Chronic) Rheumatoid arthritis (Chronic) SVT (supraventricular tachycardia) (Chronic) Insomnia (Chronic) BPH (benign prostatic hyperplasia) (Chronic) Vital Signs Temp Pulse Resp BP Pulse Ox 97.2 F L 77 14 106/59 L 98 05/14/20 13:39 05/14/20 17:42 05/14/20 13:39 05/14/20 13:39 05/14/20 13:39 Oxygen Delivery Method Room Air Weight: 65.459 kg Body Mass Index (BMI) 26.4 Sodium 141 mmol/L (136-145) 05/14/20 05:08 Potassium 4.1 mmol/L (3.5-5.1) 05/14/20 05:08 Chloride 112 mmol/L (98-107) H 05/14/20 05:08 Carbon Dioxide 23.0 mmol/L (21.0-32.0) 05/14/20 05:08 Anion Gap 6 (5-15) 05/14/20 05:08 BUN 11 mg/dL (7-18) 05/14/20 05:08 Creatinine 0.59 mg/dL (0.70-1.30) L 05/14/20 05:08 Est GFR (MDRD) Af Amer 172 mL/min (>60) 05/14/20 05:08 Est GFR (MDRD) Non-Af 142 mL/min (>60) 05/14/20 05:08 BUN/Creatinine Ratio 18.7 RATIO (10-20) 05/14/20 05:08 Glucose 85 mg/dL (74-106) 05/14/20 05:08 Assessment/Plan: Psychotropic Medications: Unnecessary Medications: Bowel Regimen: - Provider Comments Provider responsibility: Provider responsible to enter orders to implement recommendations Provider Comments to Recommendations by Pharmacy: Agree
--- NOTE | 2020-05-14 16:07 | CASEMGMT ---
Social Work SW reviewed end of life issues with pt and assisted with completing MOLST form. Pt wishes for Full code with intubation and artificial nutrition. MOLST form placed on pt chart. FARHAN Calix
[2020-05-14 17:42] VITALS: PULSE 77
[2020-05-14] MEDS: traZODone 100 MG Tablet 150 MG PO (21:33)
--- NOTE | 2020-05-15 00:46 | NURSING ---
Patient has his wallet with credit cards and 52 dollars of nazario and check book locked up in medication cabinet. Per patient request.
[2020-05-15 05:00] VITALS: BP 118/62; PULSE 75; RESP 18; TEMP 37.1; O2SAT 95
[2020-05-15] MEDS: APIXABAN 2.5 MG TABLET PO ×2 (06:13→17:16)
[2020-05-15] MEDS: Finasteride 5 MG Tablet PO (06:13)
[2020-05-15] MEDS: oxyCODONE 5 MG Tablet 10 MG PO ×3 (06:13→22:34)
[2020-05-15 06:14] VITALS: BP 118/62; PULSE 75
[2020-05-15] MEDS: Metoprolol Tartrate 25 MG Tablet PO ×2 (06:14→17:16)
[2020-05-15] MEDS: Senna/Docusate Sodium 1 Tablet 2 TABLET PO (06:14)
[2020-05-15] MEDS: Furosemide 20 MG Tablet PO (06:14)
[2020-05-15] MEDS: Topiramate 25 MG Tablet PO ×2 (06:14→17:17)
[2020-05-15] MEDS: Folic Acid 1 MG Tablet PO (08:18)
[2020-05-15] MEDS: Hydroxychloroquine 200 MG Tablet PO ×2 (08:18→17:15)
--- NOTE | 2020-05-15 15:23 | NURSING ---
Resident and daughter, Melanie, notified of staff member testing positive for COVID.
[2020-05-15 16:00] VITALS: BP 108/52; PULSE 83; RESP 18; TEMP 37.1; O2SAT 96
[2020-05-15] MEDS: Acetaminophen 500 MG Tablet 1000 MG PO (17:14)
[2020-05-15 17:16] VITALS: BP 108/52; PULSE 83
[2020-05-15] MEDS: traZODone 100 MG Tablet 150 MG PO (22:33)
[2020-05-15 22:45] VITALS: PULSE 80; RESP 16; O2SAT 97
[2020-05-16 05:00] VITALS: BP 100/54; PULSE 80; RESP 16; TEMP 37.1
[2020-05-16] MEDS: Acetaminophen 500 MG Tablet 1000 MG PO ×2 (06:29→13:21)
[2020-05-16 06:31] VITALS: BP 100/54; PULSE 80
[2020-05-16] MEDS: Metoprolol Tartrate 25 MG Tablet PO ×2 (06:31→17:20)
[2020-05-16] MEDS: Topiramate 25 MG Tablet PO ×2 (06:31→17:18)
[2020-05-16] MEDS: APIXABAN 2.5 MG TABLET PO ×2 (06:31→17:19)
[2020-05-16] MEDS: Finasteride 5 MG Tablet PO (06:31)
[2020-05-16] MEDS: Senna/Docusate Sodium 1 Tablet 2 TABLET PO (06:31)
[2020-05-16] MEDS: Folic Acid 1 MG Tablet PO (08:47)
[2020-05-16] MEDS: Hydroxychloroquine 200 MG Tablet PO ×2 (08:47→17:19)
[2020-05-16 09:39] VITALS: PULSE 72; RESP 16; O2SAT 97
[2020-05-16 13:48] VITALS: BP 92/57; PULSE 76; RESP 17; TEMP 36.9; O2SAT 96
[2020-05-16] MEDS: Baclofen 10 MG Tablet PO (17:17)
[2020-05-16 17:20] VITALS: PULSE 76
[2020-05-16] MEDS: traZODone 100 MG Tablet 150 MG PO (22:33)
[2020-05-16] MEDS: oxyCODONE 5 MG Tablet 10 MG PO (22:33)
[2020-05-17] VITALS (8 sets, daily range): BP systolic 90–123; BP diastolic 48–63; PULSE 65–79; RESP 16–60; TEMP 36.2–38.1; O2SAT 95–96
[2020-05-17] MEDS: oxyCODONE 5 MG Tablet 10 MG PO (02:38)
[2020-05-17] MEDS: APIXABAN 2.5 MG TABLET PO ×2 (07:03→17:12)
[2020-05-17] MEDS: Metoprolol Tartrate 25 MG Tablet PO ×2 (07:03→17:12)
[2020-05-17] MEDS: Topiramate 25 MG Tablet PO ×2 (07:03→17:11)
[2020-05-17] MEDS: Folic Acid 1 MG Tablet PO (07:04)
[2020-05-17] MEDS: Finasteride 5 MG Tablet PO (07:04)
[2020-05-17] MEDS: Hydroxychloroquine 200 MG Tablet PO ×2 (07:05→17:13)
[2020-05-17] MEDS: Methotrexate 2.5 MG Tablet 20 MG PO (11:00)
[2020-05-17] MEDS: traMADol 50 MG Tablet PO ×2 (11:04→17:19)
[2020-05-17] MEDS: Acetaminophen 500 MG Tablet 1000 MG PO (21:48)
[2020-05-17] MEDS: traZODone 100 MG Tablet 150 MG PO (22:33)
[2020-05-18 02:25] VITALS: TEMP 36.8
[2020-05-18 06:05] VITALS: BP 111/58; PULSE 74; RESP 14; TEMP 36.9; O2SAT 97
[2020-05-18 06:06] VITALS: BP 111/58; PULSE 74
[2020-05-18] MEDS: Metoprolol Tartrate 25 MG Tablet PO ×2 (06:06→18:03)
[2020-05-18] MEDS: APIXABAN 2.5 MG TABLET PO ×2 (06:07→17:59)
[2020-05-18] MEDS: Furosemide 20 MG Tablet PO (06:07)
[2020-05-18] MEDS: Topiramate 25 MG Tablet PO ×2 (06:08→17:59)
[2020-05-18] MEDS: Finasteride 5 MG Tablet PO (06:26)
[2020-05-18] MEDS: Polyethylene Glycol 3350 17 GM PACKET PO (06:27)
[2020-05-18] MEDS: oxyCODONE 5 MG Tablet 10 MG PO ×2 (06:35→19:52)
[2020-05-18] MEDS: Folic Acid 1 MG Tablet PO (09:13)
[2020-05-18] MEDS: Hydroxychloroquine 200 MG Tablet PO ×2 (09:13→17:59)
[2020-05-18] MEDS: Hydrocortisone 2.5% Crm 1 APPLIC TOPICAL (09:39)
[2020-05-18 09:45] VITALS: PULSE 99; RESP 18; O2SAT 96
[2020-05-18] MEDS: traMADol 50 MG Tablet PO (13:08)
[2020-05-18 14:27] VITALS: BP 102/58; PULSE 66; RESP 16; TEMP 37; O2SAT 95
[2020-05-18] MEDS: Acetaminophen 500 MG Tablet 1000 MG PO (15:53)
[2020-05-18 18:03] VITALS: BP 102/58; PULSE 66
[2020-05-18] MEDS: Menthol/Lanolin/Calamine/Znox 113 GM Tube 1 APPLIC TOPICAL (19:41)
[2020-05-18] MEDS: traZODone 100 MG Tablet 150 MG PO (19:42)
[2020-05-19] MEDS: traMADol 50 MG Tablet PO (01:52)
[2020-05-19 05:00] VITALS: BP 90/57; PULSE 79; RESP 18; TEMP 36.8; O2SAT 95
[2020-05-19] MEDS: Menthol/Lanolin/Calamine/Znox 113 GM Tube 1 APPLIC TOPICAL ×2 (05:41→21:32)
[2020-05-19] MEDS: oxyCODONE 5 MG Tablet 10 MG PO ×3 (05:41→18:13)
[2020-05-19] MEDS: Polyethylene Glycol 3350 17 GM PACKET PO (05:42)
[2020-05-19] MEDS: Finasteride 5 MG Tablet PO (05:43)
[2020-05-19] MEDS: APIXABAN 2.5 MG TABLET PO ×2 (05:43→18:01)
[2020-05-19] MEDS: Topiramate 25 MG Tablet PO ×2 (05:43→18:05)
[2020-05-19] MEDS: Senna/Docusate Sodium 1 Tablet 2 TABLET PO ×2 (05:44→18:03)
[2020-05-19 09:08] VITALS: BP 107/60; PULSE 81
[2020-05-19] MEDS: Metoprolol Tartrate 25 MG Tablet PO ×2 (09:08→18:08)
[2020-05-19] MEDS: Hydroxychloroquine 200 MG Tablet PO ×2 (09:09→18:01)
[2020-05-19] MEDS: Folic Acid 1 MG Tablet PO (09:09)
[2020-05-19 14:47] VITALS: BP 97/55; PULSE 77; RESP 16; TEMP 36.6; O2SAT 97
--- NOTE | 2020-05-19 15:45 | NURSING ---
DURAGESIC PATCH TO RIGHT DELT.
[2020-05-19 18:08] VITALS: BP 105/59; PULSE 80
[2020-05-19 18:10] VITALS: BP 105/59; PULSE 80
[2020-05-19] MEDS: traZODone 100 MG Tablet 150 MG PO (21:29)
[2020-05-19] MEDS: Mirtazapine 15 MG Tablet 7.5 MG PO (21:31)
[2020-05-19 22:22] VITALS: PULSE 87; RESP 16; O2SAT 96
[2020-05-20] MEDS: Baclofen 10 MG Tablet PO (01:13)
[2020-05-20 05:00] VITALS: BP 112/52; PULSE 75; RESP 16; TEMP 37.1; O2SAT 97
[2020-05-20 05:21] VITALS: PULSE 75
[2020-05-20] MEDS: Topiramate 25 MG Tablet PO ×2 (05:21→17:45)
[2020-05-20] MEDS: Polyethylene Glycol 3350 17 GM PACKET PO (05:21)
[2020-05-20] MEDS: oxyCODONE 5 MG Tablet 10 MG PO ×3 (05:21→22:53)
[2020-05-20] MEDS: Finasteride 5 MG Tablet PO (05:21)
[2020-05-20] MEDS: APIXABAN 2.5 MG TABLET PO ×2 (05:21→17:45)
[2020-05-20] MEDS: Metoprolol Tartrate 25 MG Tablet PO ×2 (05:21→23:07)
[2020-05-20] MEDS: Senna/Docusate Sodium 1 Tablet 2 TABLET PO ×2 (05:21→17:44)
[2020-05-20] MEDS: Furosemide 20 MG Tablet PO (05:21)
[2020-05-20] MEDS: Menthol/Lanolin/Calamine/Znox 113 GM Tube 1 APPLIC TOPICAL ×2 (05:28→22:55)
--- NOTE | 2020-05-20 07:32 | NURSING ---
Duragesic patch noted to Right Deltoid.
[2020-05-20 07:34] VITALS: RESP 16; O2SAT 96
--- NOTE | 2020-05-20 07:41 | NURSING ---
This nurse offered Suppository to patient, patient refused after several attempts.
[2020-05-20] MEDS: Hydroxychloroquine 200 MG Tablet PO ×2 (09:22→17:44)
[2020-05-20] MEDS: Folic Acid 1 MG Tablet PO (09:22)
--- NOTE | 2020-05-20 12:59 | CASEMGMT ---
Social Work IDT met with patient and dtr via conference call for care plan meeting. Discussed patient's progress in therapy. Pt is SBA for bed mobility, CGA for tx, ambulating 20ft at CGA with FWW. Pt is SBA for tx, min for toileting tasks, SBA for grooming, min for UE and LE dressing, min for LE bathing. Therapy recommended hip kit at [place]. Pt is on a regular diet, intake poor, receiving ensure. started on Remeron for mood, appetite and sleep. Pt appreciative. Pt is out of isolation 05/27, still complaining of pain. Dr. silva. Explained [facility] insurance with NRD 05/19. Pt's goal is to return home alone with 2 steps to enter at [facility]. IDT recommending continued stay. Will continue to follow. SANTOS Templeton PHOTOGRAPHY INTERN
[2020-05-20 14:22] VITALS: BP 96/50; PULSE 63; RESP 16; TEMP 37.4; O2SAT 98
[2020-05-20 17:54] VITALS: BP 109/50; PULSE 74
[2020-05-20] MEDS: Mirtazapine 15 MG Tablet 7.5 MG PO (22:48)
[2020-05-20] MEDS: traZODone 100 MG Tablet 150 MG PO (22:55)
[2020-05-20 23:07] VITALS: BP 108/56; PULSE 76
--- NOTE | 2020-05-21 03:14 | NURSING ---
Pt c/o pain to L groin. Pt states it's surface level (external) and not internal. Assessed by nurse- no redness, warmth or swelling noted. No lumps or unusual findings noted at this time.
[2020-05-21 05:00] VITALS: BP 105/55; PULSE 76; RESP 18; TEMP 37.5; O2SAT 95
[2020-05-21 05:18] LABS: Absolute Lymphocyte Count 0.81 X10^3/uL (0.83-4.51); Absolute Neutrophil Count 8.5 X10^3/uL (2.0-7.7); Basophil# 0.05 X10^3/uL; Basophil% 0.5 % (0-1); Eosinophil# 0.11 X10^3/uL; Hematocrit 31.6 % (40-54); Hemoglobin 10.3 g/dL (13.0-16.5); Lymphocyte # 0.81 X10^3/ul (4.0); Lymphocyte % 7.6 % (19-41); Mean Corp Hgb Conc 32.6 g/dL (32-36); Mean Corpuscular Hgb 31.5 pg (27.0-32.0); Mean Corpuscular Volume 96.6 fL (80-94); Mean Platelet Vol. 9.7 fl (6.2-12.0); Monocyte% 10.4 % (0-10); NRBC Flagged by Analyzer 0 % (0-5); Neutrophil # 8.48 X10^3/uL (2.7-7.7); Neutrophil % 80.1 % (47-70); Platelet Count 365 K/mm3 (150-450); RBC Distribution Width CV 13.2 % (11.6-14.6); RBC Distribution Width SD 46.9 fl (35.1-43.9); Red Blood Count 3.27 M/mm3 (4.6-6.2); White Blood Count 10.6 K/mm3 (4.4-11.0)
[2020-05-21 05:35] LABS: Anion Gap 6 (5-15); BUN 21 mg/dL (7-18); BUN/Creat Ratio 26.1 RATIO (10-20); Calcium,Total 8.2 mg/dL (8.5-10.1); Chloride 104 mmol/L (98-107); Creatinine, Serum 0.81 mg/dL (0.70-1.30); EST Glomerular Filtration Rate 99 mL/min (>60); Est Glom Filt Rate - Afr Amer 119 mL/min (>60); Estimated Creatinine Clearance 58.98 ml/min; Glucose 113 mg/dL (74-106); Potassium 3.8 mmol/L (3.5-5.1); Sodium Level 135 mmol/L (136-145)
[2020-05-21 06:38] VITALS: BP 105/55; PULSE 76
[2020-05-21] MEDS: Metoprolol Tartrate 25 MG Tablet PO ×2 (06:38→18:07)
[2020-05-21] MEDS: Menthol/Lanolin/Calamine/Znox 113 GM Tube 1 APPLIC TOPICAL ×2 (06:38→23:04)
[2020-05-21] MEDS: Finasteride 5 MG Tablet PO (06:39)
[2020-05-21] MEDS: Senna/Docusate Sodium 1 Tablet 2 TABLET PO ×2 (06:39→18:07)
[2020-05-21] MEDS: Topiramate 25 MG Tablet PO ×2 (06:39→18:08)
[2020-05-21] MEDS: APIXABAN 2.5 MG TABLET PO ×2 (06:39→18:07)
[2020-05-21] MEDS: Polyethylene Glycol 3350 17 GM PACKET PO (06:41)
[2020-05-21] MEDS: oxyCODONE 5 MG Tablet 10 MG PO ×4 (06:45→23:02)
[2020-05-21] MEDS: Hydroxychloroquine 200 MG Tablet PO ×2 (09:11→18:06)
[2020-05-21] MEDS: Folic Acid 1 MG Tablet PO (09:11)
--- NOTE | 2020-05-21 09:22 | NURSING ---
pt complaining of pain 9/10 in left ankle and it is swollen non pitting. reported to rn
--- NOTE | 2020-05-21 09:57 | RAD_ITS ---
STUDY: X-RAY - LEFT ANKLE REASON FOR EXAM: Male, 79 years old. No injury, pain started this morning when he woke up, lateral swelling -- unable to flex foot -- comments-suspect gout, no trauma TECHNIQUE: 3 view(s) of the ankle. COMPARISON: None. FINDINGS: The mineralization of the tibia and fibula. Normal medial and lateral malleoli. Normal tibiotalar articulation and ankle mortise. Normal visualized talus and calcaneus. The visualized subtalar, talonavicular, calcaneocuboid and tarsal articulations are normal. There are atherosclerotic calcifications. Mild degree of lateral swelling. RAD/Ankle 2 Views IMPRESSION: Soft tissue swelling. Vascular calcification. Demineralization of the bony structures. Electronically Signed: Nicko Yoon, at 14:20 EST , Service support ,
--- NOTE | 2020-05-21 09:58 | PCM.PN.BLA ---
Progress Note Asked to see this patient for severe Left ankle pain that started yesterday. He can not bear when anything touches it. He denies any trauma and he denies any hx of Gout. He tells me there is a FH of gout in his uncle's brother. He is on a diuretic and he recentl;y had spine surgery. The Left ankle is exquisitely tender laterally. Can no bear even light touch. There is swelling at the lateral malleolus. There is faint erythema and increased warmth to touch. I can palpate the medial side with some discomfort but not nearly as bad as on the lateral side. He has superficial venous varicosities. No calf tenderness. Impressions 1. intractable L ankle pain - suspect acute gouty arthritis. Check a Uric acid level. Get an Xray to r/o fracture. Prednisone 40 mg now and then 20 mg daily for 3 days. No PT today. STROKE Vital Signs/Narrative: Vital Signs Pulse BP 05/21/20 06:38 76 105/55 L Inpatient E&M: [id number] Subs Hosp L1
[2020-05-21 10:15] LABS: Uric Acid 3.8 mg/dL (3.5-7.2)
[2020-05-21] MEDS: predniSONE 20 MG Tablet 40 MG PO (11:12)
[2020-05-21] MEDS: Tuberculin,Purif.prot.deriv. 50 TU/ML Vial 5 ML ID (11:17)
[2020-05-21] MEDS: Acetaminophen 500 MG Tablet 1000 MG PO (14:26)
[2020-05-21] MEDS: traMADol 50 MG Tablet PO (14:27)
[2020-05-21 15:20] VITALS: BP 119/76; PULSE 97; RESP 18; TEMP 36.8; O2SAT 95
--- NOTE | 2020-05-21 16:55 | NURSING ---
PT STATED HE DID NOT WANT ANYONE UPDATED.
[2020-05-21 18:07] VITALS: BP 119/76; PULSE 97
[2020-05-21 21:26] VITALS: PULSE 78; RESP 16; O2SAT 96
[2020-05-21] MEDS: Mirtazapine 15 MG Tablet 7.5 MG PO (22:57)
[2020-05-21] MEDS: traZODone 100 MG Tablet 150 MG PO (22:57)
[2020-05-22] MEDS: traMADol 50 MG Tablet PO (02:31)
[2020-05-22] MEDS: Baclofen 10 MG Tablet PO (02:31)
[2020-05-22 05:00] VITALS: BP 100/50; PULSE 63; RESP 16; TEMP 36.6; O2SAT 96
[2020-05-22 05:55] VITALS: BP 100/50; PULSE 63
[2020-05-22] MEDS: Polyethylene Glycol 3350 17 GM PACKET PO (05:55)
[2020-05-22] MEDS: Metoprolol Tartrate 25 MG Tablet PO ×2 (05:55→17:49)
[2020-05-22] MEDS: Senna/Docusate Sodium 1 Tablet 2 TABLET PO ×2 (05:55→17:43)
[2020-05-22] MEDS: Topiramate 25 MG Tablet PO ×2 (05:56→17:42)
[2020-05-22] MEDS: Finasteride 5 MG Tablet PO (05:56)
[2020-05-22] MEDS: APIXABAN 2.5 MG TABLET PO ×2 (05:56→17:42)
[2020-05-22] MEDS: Menthol/Lanolin/Calamine/Znox 113 GM Tube 1 APPLIC TOPICAL ×2 (05:58→22:28)
[2020-05-22] MEDS: Furosemide 20 MG Tablet PO (05:58)
[2020-05-22] MEDS: oxyCODONE 5 MG Tablet 10 MG PO (06:03)
[2020-05-22] MEDS: Folic Acid 1 MG Tablet PO (08:47)
[2020-05-22] MEDS: Hydroxychloroquine 200 MG Tablet PO ×2 (08:47→17:44)
[2020-05-22] MEDS: predniSONE 20 MG Tablet PO (08:47)
[2020-05-22 10:00] VITALS: PULSE 67; RESP 16; O2SAT 95
--- NOTE | 2020-05-22 11:33 | PCM.PN.BLA ---
Progress Note Afebrile today. Vital signs are stable. Maintaining appropriate oxygen saturation on room air The left ankle pain is much better today. I was able to palpate the ankle and dorsiflex and plantarflex with no wincing or complaints of pain. There is minimal increased warmth to touch in the left lateral malleolar area today. The erythema has completely resolved. There are no openings in the skin. He is alert, appropriate and pleasant. Lungs are clear to auscultation Abdomen is soft and nontender Impressions 1. Acute gouty arthritis of the left ankle-much improved with prednisone. No hyperuricemia 2. Rheumatoid arthritis-on methotrexate and Plaquenil 3. Chronic pain syndrome 4. Urinary incontinence -he has a history of BPH and is on a few medications that can potentially cause urine retention. Continue prednisone for the next 2 days Check a post void residual and get a UA Inpatient E&M: [id number] [facility] Hosp L1
--- NOTE | 2020-05-22 12:22 | NURSING ---
Clarified with Dr Newman that UA can be clean catch specimen.
[2020-05-22 14:17] LABS: Bacteria 0 SEEN /hpf (None Seen); Mucous, Urine 0 SEEN /hpf (<or=2+); Red Blood Cells-Urine 0 SEEN /hpf (0-5); Squamous Epithelial Cells - UA 0 SEEN /hpf (0-5); White Blood Cells 0 SEEN /hpf (0-5)
[2020-05-22] MEDS: Arthritis Pain Compound 60 CLICK TUBE TOPICAL ×2 (14:38→22:32)
[2020-05-22 14:39] LABS: Color, Urine STRAW (Yellow); Glucose, Dipstick Normal (Normal); Ketone-Dipstick Negative (Negative); Leukocyte Esterase-Dipstick Negative /ul (Negative); Nitrite-Dipstick Negative (Negative); Occult Blood-Urine Negative /ul (Negative); Protein-Dipstick 15 mg/dl (Negative); Specific Gravity, Urine 1.015 (1.002-1.030); Urine Bilirubin Dipstick Negative (Negative); Urine Clarity Clear (Clear); Urine Urobilinogen Normal (Normal)
[2020-05-22 14:57] VITALS: BP 90/54; PULSE 71; RESP 16; TEMP 36.8; O2SAT 93
--- NOTE | 2020-05-22 16:24 | NURSING ---
PVR ordered and this nurse attempted to obtain twice. First attempt bladder scan showed 160cc prevoid, pt unable to void at this time. Second attempt to obtain PVR pt bladder scanned 291 pt was still unable to void, pt straight cathed to obtain U/A C&S and was instructed to let us know when he feels the urge to urinate and we will try again later. Dr. Newman updated and stated to try to obtain a couple more times, pt may need martinez if he is constantly retaining over 250cc and ok to straight cath if pt bladder scan >500 and unable to void.
--- NOTE | 2020-05-22 17:41 | NURSING ---
duragesic patch noted to right back
[2020-05-22 17:49] VITALS: BP 140/60; PULSE 79
[2020-05-22] MEDS: Mirtazapine 15 MG Tablet 7.5 MG PO (22:31)
[2020-05-22] MEDS: traZODone 100 MG Tablet 150 MG PO (23:17)
[2020-05-23 05:00] VITALS: BP 143/61; PULSE 73; RESP 18; TEMP 36.9; O2SAT 97
[2020-05-23] MEDS: Arthritis Pain Compound 60 CLICK TUBE TOPICAL ×3 (06:12→21:48)
[2020-05-23] MEDS: Polyethylene Glycol 3350 17 GM PACKET PO (06:13)
[2020-05-23 06:18] VITALS: BP 143/61; PULSE 73
[2020-05-23] MEDS: Finasteride 5 MG Tablet PO (06:18)
[2020-05-23] MEDS: APIXABAN 2.5 MG TABLET PO ×2 (06:18→17:50)
[2020-05-23] MEDS: Topiramate 25 MG Tablet PO ×2 (06:18→17:51)
[2020-05-23] MEDS: Metoprolol Tartrate 25 MG Tablet PO ×2 (06:18→17:52)
[2020-05-23] MEDS: Senna/Docusate Sodium 1 Tablet 2 TABLET PO ×2 (06:18→17:51)
[2020-05-23] MEDS: Menthol/Lanolin/Calamine/Znox 113 GM Tube 1 APPLIC TOPICAL ×2 (06:20→21:49)
[2020-05-23] MEDS: Folic Acid 1 MG Tablet PO (08:52)
[2020-05-23] MEDS: Hydroxychloroquine 200 MG Tablet PO ×2 (08:52→17:50)
[2020-05-23] MEDS: predniSONE 20 MG Tablet PO (08:52)
--- NOTE | 2020-05-23 14:27 | PCM.PN.BLA ---
Progress Note Afebrile VSS - after 3 days aof prednisone the BP has improved considerably......could he have adrenal insufficiency? He takes Prednisone PRN at home from Dr. Plasencia.....if the BP's are low again after the Prednisone is discontinued would consider referral to Dr. Perez from endocrinology. Maintaining appropriate oxygen saturation on RA Discussed with nursing - no problems that need addressed. Reviewed the PT/OT notes Medication list reviewed. UA had zero WBCs and zero RBCs per high-power field. He tells me that he has more energy. He denies any pain in the left ankle. He denies chest pain, shortness of breath, cough. He has no dysuria. He denies lightheadedness. He tells me that the arthritis cream that we are applying to the left shoulder is helping. They would like to try it on his right shoulder. Alert, oriented x3, pleasant and talkative Minimal swelling left ankle, no erythema, no openings in the skin, no increased warmth to touch. I can freely palpate the ankle and go through a passive range of motion without him complaining of pain. No peripheral edema No calf tenderness Impressions 1. acute gouty arthritis Left ankle - resolved with Prednisone. UA is WNL 2. BPH 3. RA 4. BL shoulder pain - arthritis compounded formula is helping so will use it on both shoulders and continue TID 5. Chronic pain S. 6. adrenal insufficiency ? How often is he taking Prednisone at home? Can not do a Cortrosyn stim test at this time due to the Prednisone I have given for 3 days for acute gouty arthritis 7. borderline hyponatremia 8. anemia - due to RA? CBC and a CMP in the AM
[2020-05-23 15:49] VITALS: BP 99/50; PULSE 70; RESP 16; TEMP 36.8; O2SAT 98
[2020-05-23 16:00] VITALS: BP 99/50; PULSE 70; RESP 16; TEMP 36.8; O2SAT 98
--- NOTE | 2020-05-23 16:34 | NURSING ---
[place] removed, pt tolerated well.
[2020-05-23 17:52] VITALS: BP 99/50; PULSE 70
[2020-05-23] MEDS: oxyCODONE 5 MG Tablet 10 MG PO (21:44)
[2020-05-23] MEDS: Mirtazapine 15 MG Tablet 7.5 MG PO (21:45)
[2020-05-23 21:50] VITALS: PULSE 76; RESP 16; O2SAT 96
[2020-05-23] MEDS: traZODone 100 MG Tablet 150 MG PO (22:59)
--- NOTE | 2020-05-24 00:29 | NURSING ---
Duragesic patch noted on right shoulder
[2020-05-24 05:00] VITALS: BP 130/63; PULSE 76; RESP 16; TEMP 36.8; O2SAT 97
[2020-05-24 05:53] LABS: Hematocrit 31.3 % (40-54); Mean Corp Hgb Conc 31.9 g/dL (32-36); Mean Corpuscular Hgb 31.1 pg (27.0-32.0); Mean Corpuscular Volume 97.2 fL (80-94); Mean Platelet Vol. 9.3 fl (6.2-12.0); Platelet Count 379 K/mm3 (150-450); RBC Distribution Width CV 13.1 % (11.6-14.6); RBC Distribution Width SD 46.7 fl (35.1-43.9); Red Blood Count 3.22 M/mm3 (4.6-6.2); White Blood Count 6.4 K/mm3 (4.4-11.0)
[2020-05-24 06:25] LABS: ALB/GLOB Ratio 0.7 RATIO (0.9-2.4); AST(SGOT) 38 U/L (15-37); Alanine Aminotransfer ALT/SGPT 61 U/L (16-61); Albumin, Serum 2.3 g/dL (3.2-5.0); Alkaline Phosphatase 68 U/L (45-117); Anion Gap 5 (5-15); BUN 22 mg/dL (7-18); BUN/Creat Ratio 26.3 RATIO (10-20); Calcium,Total 8.3 mg/dL (8.5-10.1); Chloride 109 mmol/L (98-107); Creatinine, Serum 0.84 mg/dL (0.70-1.30); EST Glomerular Filtration Rate 94 mL/min (>60); Est Glom Filt Rate - Afr Amer 114 mL/min (>60); Estimated Creatinine Clearance 56.88 ml/min; Globulin 3.5 g/dL (2.2-4.2); Glucose 92 mg/dL (74-106); Magnesium 2.2 mg/dL (1.6-2.6); Phosphorus 3.1 mg/dL (2.5-4.9); Potassium 3.7 mmol/L (3.5-5.1); Protein, Total 5.8 g/dL (6.4-8.2); Sodium Level 141 mmol/L (136-145)
[2020-05-24] MEDS: Senna/Docusate Sodium 1 Tablet 2 TABLET PO ×2 (06:42→16:52)
[2020-05-24] MEDS: Finasteride 5 MG Tablet PO (06:42)
[2020-05-24] MEDS: Arthritis Pain Compound 60 CLICK TUBE TOPICAL ×3 (06:42→20:07)
[2020-05-24 06:43] VITALS: BP 130/63; PULSE 76
[2020-05-24] MEDS: Metoprolol Tartrate 25 MG Tablet PO ×2 (06:43→16:51)
[2020-05-24] MEDS: APIXABAN 2.5 MG TABLET PO ×2 (06:43→16:51)
[2020-05-24] MEDS: Topiramate 25 MG Tablet PO ×2 (06:43→16:52)
[2020-05-24] MEDS: Polyethylene Glycol 3350 17 GM PACKET PO (06:46)
[2020-05-24] MEDS: Menthol/Lanolin/Calamine/Znox 113 GM Tube 1 APPLIC TOPICAL ×2 (06:46→20:12)
--- NOTE | 2020-05-24 07:15 | NURSING ---
pt refused to get dressed at this time. assisted to br and will order breakfast when gets around to it
[2020-05-24] MEDS: Folic Acid 1 MG Tablet PO (09:16)
[2020-05-24] MEDS: predniSONE 20 MG Tablet PO (09:16)
[2020-05-24] MEDS: Hydroxychloroquine 200 MG Tablet PO ×2 (09:16→16:51)
[2020-05-24 09:54] VITALS: RESP 16; O2SAT 96
[2020-05-24] MEDS: Methotrexate 2.5 MG Tablet 20 MG PO (11:42)
[2020-05-24 15:36] VITALS: BP 100/59; PULSE 67; RESP 16; TEMP 37; O2SAT 98
[2020-05-24 16:51] VITALS: BP 102/62; PULSE 70
[2020-05-24] MEDS: Mirtazapine 15 MG Tablet 7.5 MG PO (20:04)
[2020-05-24] MEDS: oxyCODONE 5 MG Tablet 10 MG PO (20:05)
[2020-05-24] MEDS: traZODone 100 MG Tablet 150 MG PO (22:59)
[2020-05-25] MEDS: oxyCODONE 5 MG Tablet 10 MG PO ×2 (03:30→16:57)
[2020-05-25 05:00] VITALS: BP 123/59; PULSE 64; RESP 16; TEMP 36.6; O2SAT 95
[2020-05-25] MEDS: Arthritis Pain Compound 60 CLICK TUBE TOPICAL ×3 (06:49→22:36)
[2020-05-25] MEDS: Finasteride 5 MG Tablet PO (06:49)
[2020-05-25] MEDS: APIXABAN 2.5 MG TABLET PO ×2 (06:49→16:59)
[2020-05-25] MEDS: Furosemide 20 MG Tablet PO (06:49)
[2020-05-25] MEDS: Menthol/Lanolin/Calamine/Znox 113 GM Tube 1 APPLIC TOPICAL ×2 (06:50→22:40)
[2020-05-25] MEDS: Senna/Docusate Sodium 1 Tablet 2 TABLET PO ×2 (06:51→16:59)
[2020-05-25] MEDS: Topiramate 25 MG Tablet PO ×2 (06:51→16:58)
[2020-05-25 06:52] VITALS: BP 123/59; PULSE 64
[2020-05-25] MEDS: Metoprolol Tartrate 25 MG Tablet PO (06:52)
[2020-05-25] MEDS: Polyethylene Glycol 3350 17 GM PACKET PO (06:57)
[2020-05-25] MEDS: Hydroxychloroquine 200 MG Tablet PO ×2 (09:15→16:58)
[2020-05-25] MEDS: Folic Acid 1 MG Tablet PO (09:15)
[2020-05-25 14:33] VITALS: BP 95/56; PULSE 68; RESP 14; TEMP 36.2; O2SAT 100
[2020-05-25 16:57] VITALS: BP 94/53; PULSE 69
[2020-05-25 20:36] VITALS: PULSE 72; RESP 18; O2SAT 98
[2020-05-25] MEDS: traZODone 100 MG Tablet 150 MG PO (22:41)
[2020-05-25] MEDS: Mirtazapine 15 MG Tablet 7.5 MG PO (22:42)
--- NOTE | 2020-05-26 02:14 | NURSING ---
Pt voided x 1, post void residual 116cc. Written message left for Dr. Lebron.
[2020-05-26 06:43] VITALS: BP 117/62; PULSE 77; RESP 16; TEMP 36.4; O2SAT 96
[2020-05-26] MEDS: Polyethylene Glycol 3350 17 GM PACKET PO (06:57)
[2020-05-26] MEDS: Senna/Docusate Sodium 1 Tablet 2 TABLET PO (06:57)
[2020-05-26 06:58] VITALS: BP 117/62; PULSE 77
[2020-05-26] MEDS: Menthol/Lanolin/Calamine/Znox 113 GM Tube 1 APPLIC TOPICAL ×2 (06:58→22:28)
[2020-05-26] MEDS: Arthritis Pain Compound 60 CLICK TUBE TOPICAL ×3 (06:58→22:27)
[2020-05-26] MEDS: Metoprolol Tartrate 25 MG Tablet PO (06:58)
[2020-05-26] MEDS: Finasteride 5 MG Tablet PO (06:58)
[2020-05-26] MEDS: APIXABAN 2.5 MG TABLET PO ×2 (06:58→17:34)
[2020-05-26] MEDS: Topiramate 25 MG Tablet PO ×2 (07:00→17:35)
[2020-05-26] MEDS: Hydroxychloroquine 200 MG Tablet PO ×2 (08:58→17:33)
[2020-05-26] MEDS: Folic Acid 1 MG Tablet PO (08:58)
--- NOTE | 2020-05-26 10:09 | MDS.RN ---
Information for the mds was obtained from review of the clinical record, interview of resident, staff, and direct observation of resident's care.
[2020-05-26 10:30] VITALS: PULSE 67; RESP 18; O2SAT 98
--- NOTE | 2020-05-26 10:42 | NURSING ---
PT REFUSED VICKY WRAPS,VERIFIED DURAGESIC TO LEFT POST SHOULDER. PT HAS SMALL AMOUNT OF BLOOD AFTER BM. ASKED PT IF HE HAS HAD HEMORRHOIDS PT STATED YES. RN AWARE.
--- NOTE | 2020-05-26 10:44 | NURSING ---
PT STATED THERE WAS NO ONE HE WANTED ME TO CALL.
[2020-05-26 13:28] VITALS: BP 92/56; PULSE 70; RESP 17; TEMP 36.8; O2SAT 97
--- NOTE | 2020-05-26 14:19 | NURSING ---
Resident and family updated on COIVD status of unit.
[2020-05-26] MEDS: oxyCODONE 5 MG Tablet 10 MG PO ×2 (16:03→22:26)
[2020-05-26 17:30] VITALS: BP 96/52; PULSE 67
[2020-05-26 17:33] VITALS: BP 96/52; PULSE 67
[2020-05-26] MEDS: Tamsulosin HCl 0.4 MG Capsule PO (17:33)
[2020-05-26] MEDS: traZODone 100 MG Tablet 150 MG PO (22:28)
[2020-05-26] MEDS: Mirtazapine 15 MG Tablet 7.5 MG PO (22:30)
[2020-05-27] MEDS: oxyCODONE 5 MG Tablet 10 MG PO ×2 (04:53→22:01)
[2020-05-27] MEDS: Polyethylene Glycol 3350 17 GM PACKET PO (04:54)
[2020-05-27] MEDS: Senna/Docusate Sodium 1 Tablet 2 TABLET PO ×2 (04:55→18:04)
[2020-05-27 04:56] VITALS: BP 120/62; PULSE 71
[2020-05-27] MEDS: APIXABAN 2.5 MG TABLET PO ×2 (04:56→18:03)
[2020-05-27] MEDS: Metoprolol Tartrate 25 MG Tablet PO (04:56)
[2020-05-27] MEDS: Topiramate 25 MG Tablet PO ×2 (04:56→18:04)
[2020-05-27] MEDS: Finasteride 5 MG Tablet PO (04:57)
[2020-05-27] MEDS: Arthritis Pain Compound 60 CLICK TUBE TOPICAL ×3 (04:57→22:05)
[2020-05-27] MEDS: Menthol/Lanolin/Calamine/Znox 113 GM Tube 1 APPLIC TOPICAL ×2 (04:57→22:06)
[2020-05-27] MEDS: Furosemide 20 MG Tablet PO (04:57)
[2020-05-27 05:00] VITALS: BP 120/62; PULSE 71; RESP 17; TEMP 36.8; O2SAT 96
[2020-05-27] MEDS: Folic Acid 1 MG Tablet PO (08:26)
[2020-05-27] MEDS: Hydroxychloroquine 200 MG Tablet PO ×2 (08:26→18:04)
--- NOTE | 2020-05-27 09:39 | PCA ---
this patient asked to be assisted to the BR . patient was assisted to the BR by another reeler operator . the patient was asked to sit up in his chair for meals by nurse and reeler operator patient stated that there was no way he could sit in his chair today . this reeler operator went to assist patient out of the BR when his was finished and he states that he felt as if he was going to be sick this reeler operator put trash can in front of patient Patient had some dry heaving but no vomiting occurred pt. vitals were taken temp was 98.2 and vitals were normal . patient seemed to be feeling better once he was back into bed therapy and nurse were notified
[2020-05-27 14:02] VITALS: BP 93/50; PULSE 65; RESP 16; TEMP 37; O2SAT 97
--- NOTE | 2020-05-27 14:27 | DS.PCM_ITS ---
Discharge Date and Diagnosis - Problem List Patient Problems: Active and Suspected Problems (Last Updated 04/06/20 @ 10:53 by Tracy Gottlieb) Debility (Acute) Lumbar spinal stenosis (Acute) Atrial fibrillation with rapid ventricular response (Acute) Date of Admission: 05/13/20 - to TCU Date of Discharge: 05/13/20 - from [facility] - Primary Discharge Diagnosis Acute Problems: Active Problems (Last Updated 04/06/20 @ 10:53 by Tracy Gottlieb) Debility (Acute) Lumbar spinal stenosis (Acute) Atrial fibrillation with rapid ventricular response (Acute) - Secondary Discharge Diagnosis Chronic Problems: Chronic Problems (Last Updated 04/06/20 @ 10:53 by Tracy Gottlieb) Muscle spasm (Chronic) GERD (gastroesophageal reflux disease) (Chronic) Rheumatoid arthritis (Chronic) SVT (supraventricular tachycardia) (Chronic) Insomnia (Chronic) BPH (benign prostatic hyperplasia) (Chronic) Abnormal EKG (Chronic) Abnormal echocardiogram (Chronic) Left ventricular hypokinesis (Chronic) Leg pain, bilateral (Chronic) Edema (Chronic) Hospital Course and Treatment Operations: - - 3 level laminectomy Summary of Care Provided: The patient is a 79 year old M Patient patient is discharged from [place] [address] to the transitional care unit. His his hospital course was relatively unremarkable. He spent several postop days in [place] [address]. He was slow to recover from his three-level laminectomy. He has been transferred to the transitional care unit for rehab as he lives alone. In addition the original plan was for him to stay with his daughter and her family however they are under quarantine at the time of his discharge. Thus he has been transferred to the transitional care unit. Plus he needs some rehab that can be done there. Patient Problems: Active and Suspected Problems (Last Updated 04/06/20 @ 10:53 by Tracy Gottlieb) Debility (Acute) Lumbar spinal stenosis (Acute) Atrial fibrillation with rapid ventricular response (Acute) Objective: see H and P from accepting provider in tcu - Physical Exam Vitals/I&O's: Vital Signs Temp Pulse Resp BP Pulse Ox 98.6 F 65 16 93/50 L 97 05/27/20 14:02 05/27/20 14:02 05/27/20 14:02 05/27/20 14:02 05/27/20 14:02 Oxygen Delivery Method Room Air Weight: 128 lb 2 oz Body Mass Index (BMI) 26.4 Intake and Output for Last 24 Hours 05/25/20 05/26/20 05/27/20 23:59 23:59 23:59 Intake Total 720 / 720 600 / 600 360 / 360 Output Total 350 / 350 150 / 150 Balance 720 / 720 250 / 250 210 / 210 Microbiology Past 72 Hours 05/25/20 12:05 Nasal Secretion SARS-CoV-2 Antigen (Rapid) - Final Current Medications Acetaminophen (Acetaminophen 500 Mg Tablet) 1,000 mg PO Q6H PRN PRN Reason: Pain Score 1-3 Last Admin: 05/21/20 14:26 Dose: 1,000 mg Documented by: Apixaban (Apixaban 2.5 Mg Tablet) 2.5 mg PO BID [facility] Last Admin: 05/27/20 04:56 Dose: 2.5 mg Documented by: Baclofen (Baclofen 10 Mg Tablet) 10 mg PO TID PRN PRN Reason: MUSCLE SPASM Last Admin: 05/22/20 02:31 Dose: 10 mg Documented by: Bisacodyl (Bisacodyl 10 Mg Suppository) 10 mg RECTAL DAILY PRN PRN Reason: Constipation Calamine/Phenol (Menthol/Lanolin/Calamine/Znox 113 Gm Tube) 1 applic TOPICAL 0600,2200 [facility]; Protocol Last Admin: 05/27/20 04:57 Dose: 1 applicatio Documented by: Compound Med (Arthritis Pain Compound 60 Click Tube) 0 click TOPICAL TID [facility]; Protocol Last Admin: 05/27/20 13:28 Dose: 1 click Documented by: Fentanyl (Fentanyl 12 Mcg Patch) 12 mcg TD Q3D [facility] Last Admin: 05/25/20 13:33 Dose: 12 mcg Documented by: Finasteride (Finasteride 5 Mg Tablet) 5 mg PO DAILY [facility] Last Admin: 05/27/20 04:57 Dose: 5 mg Documented by: Folic Acid (Folic Acid 1 Mg Tablet) 1 mg PO DAILY@0800 [facility] Last Admin: 05/27/20 08:26 Dose: 1 mg Documented by: Furosemide (Furosemide 20 Mg Tablet) 20 mg PO MOWEFR [facility] Last Admin: 05/27/20 04:57 Dose: 20 mg Documented by: Hydrocortisone (Hydrocortisone 2.5% Crm) 1 applic TOPICAL BID PRN PRN; Protocol PRN Reason: Apply to rash on back for irritation Last Admin: 05/18/20 09:39 Dose: 1 applicatio Documented by: Hydroxychloroquine Sulfate (Hydroxychloroquine 200 Mg Tablet) [facility] Last Admin: 05/27/20 08:26 Dose: 200 mg Documented by: Magnesium Hydroxide (Magnesium Hydroxide 30 Ml Udc) 30 ml PO DAILY PRN PRN Reason: Constipation Methotrexate (Methotrexate 2.5 Mg Tablet) 20 mg PO JONES [facility] Last Admin: 05/24/20 11:42 Dose: 20 mg Documented by: Metoprolol Tartrate (Metoprolol Tartrate 25 Mg Tablet) 25 mg PO BID [facility] Last Admin: 05/27/20 04:56 Dose: 25 mg Documented by: Mirtazapine (Mirtazapine 15 Mg Tablet) 7.5 mg PO QHS [facility] Last Admin: 05/26/20 22:30 Dose: 7.5 mg Documented by: Nutritional Formula (Lactose Free) (Ensure Enlive 120 Ml Liquid) 120 ml PO 4X/DAY [facility] Last Admin: 05/27/20 10:45 Dose: 120 ml Documented by: Oxycodone HCl (Oxycodone 5 Mg Tablet) 10 mg PO Q4H PRN PRN Reason: Pain Score 6-10 Last Admin: 05/27/20 04:53 Dose: 10 mg Documented by: Polyethylene Glycol (Polyethylene Glycol 3350 17 Gm Packet) 17 gm PO DAILY [facility] Last Admin: 05/27/20 04:54 Dose: 17 gm Documented by: Senna/Docusate Sodium (Senna/Docusate Sodium 1 Tablet) 2 tablet PO BID [facility] Last Admin: 05/27/20 04:55 Dose: 1 tablet Documented by: Sodium Chloride (0.9% Saline Lock 10 Ml Syringe) 10 - 40 ml IV UD PRN PRN Reason: SALINE FLUSH Last Admin: 05/14/20 05:41 Dose: 10 ml Documented by: Tamsulosin HCl (Tamsulosin Hcl 0.4 Mg Capsule) 0.4 mg PO DAILY@1730 [facility] Last Admin: 05/26/20 17:33 Dose: 0.4 mg Documented by: Topiramate (Topiramate 25 Mg Tablet) 25 mg PO BID [facility] Last Admin: 05/27/20 04:56 Dose: 25 mg Documented by: Tramadol HCl (Tramadol 50 Mg Tablet) 50 mg PO Q6H PRN PRN PRN Reason: Pain Score 4-5 Last Admin: 05/22/20 02:31 Dose: 50 mg Documented by: Trazodone HCl (Trazodone 100 Mg Tablet) 150 mg PO QHS [facility] Last Admin: 05/26/20 22:28 Dose: 150 mg Documented by: Home Medications: Medications to take at Discharge Calcium Carb/Vitamin D [Caltrate-600 With Vit D Tab] 1 tab PO DAILY@0800 10/09/14 Hydroxychloroquine [Plaquenil] 200 mg PO BIDCM 10/09/14 Trazodone HCl 150 mg PO QHS 09/22/17 Finasteride [Proscar] 5 mg PO DAILY 12/10/18 methotrexate sodium 2.5 mg tablet 20 mg PO JONES 01/29/19 ascorbic acid (vitamin C) 500 mg chewable tablet 500 mg PO DAILY tab 01/30/19 golimumab 12.5 mg/mL intravenous solution 135 mg IV [id number] ml 01/30/19 mecobalamin (vitamin B12) 5,000 mcg disintegrating tablet 2,500 mcg PO DAILY tab 01/30/19 topiramate 25 mg tablet 25 mg PO BID 01/30/19 baclofen 10 mg tablet 10 mg PO TID PRN 11/11/19 folic acid 800 mcg tablet 1.6 mg PO DAILY tab 11/11/19 oxycodone-acetaminophen 5 mg-325 mg tablet 1 tab PO TID PRN tab 11/11/19 CBD Tincture Oil 250 mg TOPICAL PRN PRN 04/06/20 herbal supplement 1 cap PO DAILY 04/06/20 ficdcyxx-kfcryvcg-bxbom acid 400 mcg-vit K 20 mcg-lycop 300 mcg tablet 1 tab PO DAILY 04/06/20 turmeric 400 mg capsule 400 mg PO DAILY cap 04/06/20 Apixaban [Eliquis] 2.5 mg PO BID 05/13/20 Furosemide [Lasix] 20 mg PO MOWEFR 05/13/20 Metoprolol Tartrate [Lopressor (beta santiago)] 25 mg PO BID 05/13/20 Primary Care Physician: Gloria Hazel MD [Primary Care Provider] - Please Follow Up With: Gloria Hazel MD When: 1.5 weeks Please Follow Up With: Vlad Alfaro DO When: 05/15/20 Medical Necessity - Tobacco Use Smoking Status: Former smoker Tobacco Use: Non-smoker Meaningful Use Info Meaningful Use Diagnoses (Choose all that apply): None applicable
[2020-05-27] MEDS: Tamsulosin HCl 0.4 MG Capsule PO (18:03)
[2020-05-27] MEDS: Mirtazapine 15 MG Tablet 7.5 MG PO (22:06)
[2020-05-27] MEDS: traZODone 100 MG Tablet 150 MG PO (22:50)
[2020-05-28 00:16] VITALS: PULSE 86; RESP 18; O2SAT 98
[2020-05-28 05:34] LABS: Absolute Lymphocyte Count 1.77 X10^3/uL (0.83-4.51); Absolute Neutrophil Count 2.5 X10^3/uL (2.0-7.7); Basophil# 0.05 X10^3/uL; Basophil% 0.9 % (0-1); Eosinophil# 0.46 X10^3/uL; Eosinophils% 8.3 % (0-5); Hematocrit 33.5 % (40-54); Hemoglobin 10.8 g/dL (13.0-16.5); Lymphocyte # 1.77 X10^3/ul (4.0); Mean Corp Hgb Conc 32.2 g/dL (32-36); Mean Corpuscular Hgb 31.2 pg (27.0-32.0); Mean Corpuscular Volume 96.8 fL (80-94); Mean Platelet Vol. 9.5 fl (6.2-12.0); Monocyte# 0.74 X10^3/uL; Monocyte% 13.4 % (0-10); NRBC Flagged by Analyzer 0 % (0-5); Neutrophil # 2.48 X10^3/uL (2.7-7.7); Neutrophil % 44.9 % (47-70); Platelet Count 328 K/mm3 (150-450); RBC Distribution Width CV 13.6 % (11.6-14.6); RBC Distribution Width SD 47.4 fl (35.1-43.9); Red Blood Count 3.46 M/mm3 (4.6-6.2); White Blood Count 5.5 K/mm3 (4.4-11.0)
[2020-05-28] MEDS: Menthol/Lanolin/Calamine/Znox 113 GM Tube 1 APPLIC TOPICAL ×2 (05:47→21:18)
[2020-05-28] MEDS: Arthritis Pain Compound 60 CLICK TUBE TOPICAL ×3 (05:47→21:14)
[2020-05-28] MEDS: APIXABAN 2.5 MG TABLET PO ×2 (05:48→16:59)
[2020-05-28] MEDS: Senna/Docusate Sodium 1 Tablet 2 TABLET PO ×2 (05:49→16:55)
[2020-05-28] MEDS: Finasteride 5 MG Tablet PO (05:49)
[2020-05-28] MEDS: Polyethylene Glycol 3350 17 GM PACKET PO (05:49)
[2020-05-28] MEDS: Topiramate 25 MG Tablet PO ×2 (05:50→16:59)
[2020-05-28 05:52] LABS: Anion Gap 4 (5-15); BUN 20 mg/dL (7-18); BUN/Creat Ratio 23.1 RATIO (10-20); Calcium,Total 8.4 mg/dL (8.5-10.1); Chloride 107 mmol/L (98-107); Creatinine, Serum 0.87 mg/dL (0.70-1.30); EST Glomerular Filtration Rate 91 mL/min (>60); Est Glom Filt Rate - Afr Amer 110 mL/min (>60); Estimated Creatinine Clearance 54.91 ml/min; Glucose 86 mg/dL (74-106); Potassium 3.7 mmol/L (3.5-5.1); Sodium Level 140 mmol/L (136-145)
[2020-05-28 05:54] VITALS: BP 101/56; PULSE 68
[2020-05-28] MEDS: Metoprolol Tartrate 25 MG Tablet PO (05:54)
[2020-05-28] MEDS: oxyCODONE 5 MG Tablet 10 MG PO ×3 (05:58→21:13)
[2020-05-28 06:00] VITALS: BP 101/56; PULSE 67; RESP 18; TEMP 36.6; O2SAT 96
[2020-05-28] MEDS: Folic Acid 1 MG Tablet PO (08:00)
[2020-05-28] MEDS: Hydroxychloroquine 200 MG Tablet PO ×2 (08:00→16:54)
[2020-05-28 10:00] VITALS: PULSE 71; O2SAT 96
--- NOTE | 2020-05-28 11:37 | CASEMGMT ---
Social Work Spoke with pt about chances of insurance issuing DC date from update today. Pt states he does not feel confident going home alone at this time and would still like to get stronger. Pt suggested him living with his dtr for a little while at DC. Pt actively working with PT - suggested pt to express any concerns with PT to work on during session, and SW inquired about contacting dtr - pt agreed. Spoke with dtr about DC plans. Explained pt is SBA for all ADLS, walking 30 ft and completed 3 steps. Inquired about pt request to DC to dtr's home. Dtr unsure but stated if he does, he has 16 steps to get from the main floor to the finished basement where his bedroom would be. Dtr stated she lives around the corner and would stop in a few times a day or week to make sure he is doing well. Explained SW would order either HHC or OP therapy. IDT feel comfortable with pt DC home alone, but pt still anxious. Dtr stated she will contact the pt to discuss plans and notify SW. Spoke with pt on above information and SW and PT explained IDT feel comfortable with pt DC home alone. Pt inquired about transportation to Dr's appts. SW can provide resources or dtr would be able to transport. SW encouraged pt to feel more confident and focus on the great progress he has made thus far. PT stated they can make him adlib in room to see if that will help pt in feeling more confident to do things on his own. Pt agreeable. SW to continue to follow for DC plans and insurance outcome. Susan Miller, [employer] INTER[employer]
--- NOTE | 2020-05-28 15:49 | NURSING ---
New duragesic patch applied to right back
[2020-05-28 15:58] VITALS: BP 96/54; PULSE 71; RESP 18; TEMP 37.2; O2SAT 96
[2020-05-28] MEDS: Tamsulosin HCl 0.4 MG Capsule PO (16:59)
--- NOTE | 2020-05-28 22:00 | NURSING ---
Fentanyl patch intact to rt post shoulder.
[2020-05-28] MEDS: traZODone 100 MG Tablet 150 MG PO (23:02)
[2020-05-28] MEDS: Mirtazapine 15 MG Tablet 7.5 MG PO (23:03)
[2020-05-29 05:10] VITALS: BP 92/48; PULSE 74; RESP 16; TEMP 36.4; O2SAT 95
[2020-05-29] MEDS: Furosemide 20 MG Tablet PO (05:12)
[2020-05-29] MEDS: Arthritis Pain Compound 60 CLICK TUBE TOPICAL ×3 (05:13→22:47)
[2020-05-29] MEDS: Finasteride 5 MG Tablet PO (05:13)
[2020-05-29] MEDS: APIXABAN 2.5 MG TABLET PO ×2 (05:13→17:28)
[2020-05-29] MEDS: Senna/Docusate Sodium 1 Tablet 2 TABLET PO (05:14)
[2020-05-29] MEDS: Topiramate 25 MG Tablet PO ×2 (05:15→17:30)
[2020-05-29] MEDS: Menthol/Lanolin/Calamine/Znox 113 GM Tube 1 APPLIC TOPICAL (05:17)
[2020-05-29 05:20] VITALS: BP 92/48; PULSE 74
[2020-05-29] MEDS: Folic Acid 1 MG Tablet PO (08:33)
[2020-05-29] MEDS: Hydroxychloroquine 200 MG Tablet PO ×2 (08:33→17:28)
[2020-05-29] MEDS: oxyCODONE 5 MG Tablet 10 MG PO ×3 (08:35→22:49)
[2020-05-29 13:37] VITALS: BP 93/52; PULSE 72; RESP 16; TEMP 36.8; O2SAT 96
--- NOTE | 2020-05-29 15:23 | NURSING ---
pt stated he updated family
[2020-05-29 17:29] VITALS: BP 93/52; PULSE 72
[2020-05-29] MEDS: Tamsulosin HCl 0.4 MG Capsule PO (17:29)
--- NOTE | 2020-05-29 17:33 | NURSING ---
DURAGESIC PATCH VERIFIED TO RIGHT SHOULDER.
[2020-05-29] MEDS: traZODone 100 MG Tablet 150 MG PO (22:46)
[2020-05-29] MEDS: Mirtazapine 15 MG Tablet 7.5 MG PO (22:47)
[2020-05-30 06:31] VITALS: BP 120/58; PULSE 70; RESP 14; TEMP 36.9; O2SAT 98
[2020-05-30 06:32] VITALS: BP 120/58; PULSE 70
[2020-05-30] MEDS: Topiramate 25 MG Tablet PO ×2 (06:32→17:51)
[2020-05-30] MEDS: Senna/Docusate Sodium 1 Tablet 2 TABLET PO ×2 (06:32→17:51)
[2020-05-30] MEDS: Finasteride 5 MG Tablet PO (06:32)
[2020-05-30] MEDS: Metoprolol Tartrate 25 MG Tablet PO (06:32)
[2020-05-30] MEDS: APIXABAN 2.5 MG TABLET PO ×2 (06:32→17:51)
[2020-05-30] MEDS: oxyCODONE 5 MG Tablet 10 MG PO ×4 (06:36→21:56)
[2020-05-30] MEDS: Arthritis Pain Compound 60 CLICK TUBE TOPICAL ×3 (06:37→21:57)
[2020-05-30] MEDS: Hydroxychloroquine 200 MG Tablet PO ×2 (09:32→17:49)
[2020-05-30] MEDS: Folic Acid 1 MG Tablet PO (09:32)
[2020-05-30] MEDS: traMADol 50 MG Tablet PO (09:36)
[2020-05-30 10:00] VITALS: PULSE 58; RESP 16; O2SAT 98
[2020-05-30 14:04] VITALS: BP 80/48; PULSE 56; RESP 18; TEMP 36.6; O2SAT 94
--- NOTE | 2020-05-30 14:56 | NURSING ---
pt stated there was no one he wanted this nurse to call for updates.
[2020-05-30 16:02] VITALS: BP 93/56; PULSE 59
[2020-05-30 16:04] VITALS: BP 93/56; PULSE 59
[2020-05-30] MEDS: Tamsulosin HCl 0.4 MG Capsule PO (17:50)
[2020-05-30] MEDS: Mirtazapine 15 MG Tablet 7.5 MG PO (22:01)
[2020-05-30] MEDS: traZODone 100 MG Tablet 150 MG PO (22:02)
[2020-05-31] VITALS (7 sets, daily range): BP systolic 89–114; BP diastolic 49–62; PULSE 66–76; RESP 14–16; TEMP 36.9; O2SAT 96–98
--- NOTE | 2020-05-31 00:55 | NURSING ---
verified Duragesic on LT upper back.
[2020-05-31] MEDS: oxyCODONE 5 MG Tablet 10 MG PO ×3 (07:00→19:35)
[2020-05-31] MEDS: Arthritis Pain Compound 60 CLICK TUBE TOPICAL ×3 (07:00→23:14)
[2020-05-31] MEDS: Menthol/Lanolin/Calamine/Znox 113 GM Tube 1 APPLIC TOPICAL ×2 (07:01→23:17)
[2020-05-31] MEDS: Senna/Docusate Sodium 1 Tablet 2 TABLET PO ×2 (07:01→17:20)
[2020-05-31] MEDS: APIXABAN 2.5 MG TABLET PO ×2 (07:01→17:19)
[2020-05-31] MEDS: Topiramate 25 MG Tablet PO ×2 (07:02→17:23)
[2020-05-31] MEDS: Finasteride 5 MG Tablet PO (07:02)
[2020-05-31] MEDS: Folic Acid 1 MG Tablet PO (09:17)
[2020-05-31] MEDS: Hydroxychloroquine 200 MG Tablet PO ×2 (09:17→17:20)
[2020-05-31] MEDS: Methotrexate 2.5 MG Tablet 20 MG PO (09:17)
--- NOTE | 2020-05-31 11:45 | NURSING ---
PT STATED HE UPDATES FAMILY
--- NOTE | 2020-05-31 15:01 | NURSING ---
NEW DURAGESIC PATCH APPLIED TO LEFT MIDDLE BACK. OLD PATCH IN DESTROYER WITNESS BY RN.
[2020-05-31] MEDS: traMADol 50 MG Tablet PO ×2 (17:17→23:16)
[2020-05-31] MEDS: Tamsulosin HCl 0.4 MG Capsule PO (17:19)
[2020-05-31] MEDS: Mirtazapine 15 MG Tablet 7.5 MG PO (23:13)
[2020-05-31] MEDS: traZODone 100 MG Tablet 150 MG PO (23:13)
--- NOTE | 2020-05-31 23:55 | NURSING ---
Duragesic noted on rt mid back.
[2020-06-01 05:00] VITALS: BP 109/53; PULSE 59; RESP 18; TEMP 36.6; O2SAT 95
[2020-06-01] MEDS: oxyCODONE 5 MG Tablet 10 MG PO ×3 (05:58→21:54)
[2020-06-01] MEDS: APIXABAN 2.5 MG TABLET PO ×2 (05:58→17:28)
[2020-06-01] MEDS: Finasteride 5 MG Tablet PO (05:58)
[2020-06-01] MEDS: Arthritis Pain Compound 60 CLICK TUBE TOPICAL ×3 (05:59→21:51)
[2020-06-01] MEDS: Senna/Docusate Sodium 1 Tablet 2 TABLET PO ×2 (05:59→17:29)
[2020-06-01] MEDS: Menthol/Lanolin/Calamine/Znox 113 GM Tube 1 APPLIC TOPICAL ×2 (06:00→21:54)
[2020-06-01] MEDS: Topiramate 25 MG Tablet PO ×2 (06:00→17:30)
[2020-06-01] MEDS: Furosemide 20 MG Tablet PO (07:41)
[2020-06-01 07:50] VITALS: PULSE 58
[2020-06-01] MEDS: Hydroxychloroquine 200 MG Tablet PO ×2 (07:51→17:28)
[2020-06-01] MEDS: Folic Acid 1 MG Tablet PO (07:51)
[2020-06-01 08:43] VITALS: PULSE 72; RESP 16; O2SAT 94
--- NOTE | 2020-06-01 12:35 | NURSING ---
Duragesic patch noted to left mid back
[2020-06-01 13:51] VITALS: BP 104/51; PULSE 70; RESP 18; TEMP 36.9; O2SAT 93
--- NOTE | 2020-06-01 15:35 | CASEMGMT ---
Social Work Insurance issued LCD 06/03, DC 06/04. Notified pt. Pt agreeable to DC home alone with [facility]. Referral made for PT/OT. Pt checking with dtr to see if he needs FWW or not. Dtr to transport pt. Provided transportation resources, per pt request. Pt to contact dtr. Plan: DC home alone with [facility] PT/OT [facility]
[2020-06-01] MEDS: Tamsulosin HCl 0.4 MG Capsule PO (17:28)
--- NOTE | 2020-06-01 18:39 | PCM.DC ---
- Discharge Diagnoses Current Active Problems: Current Active and Chronic Problems (Last Updated 04/06/20 @ 10:53 by Tracy Gottlieb) Debility (Acute) Lumbar spinal stenosis (Acute) Atrial fibrillation with rapid ventricular response (Acute) Muscle spasm (Chronic) GERD (gastroesophageal reflux disease) (Chronic) Rheumatoid arthritis (Chronic) SVT (supraventricular tachycardia) (Chronic) Insomnia (Chronic) BPH (benign prostatic hyperplasia) (Chronic) You will use the following diet at home:: No restrictions, Regular Your food should be the consistency of: Regular Your liquids should be the consistency of: Regular/Thin Discharge Activity: Return to Normal Activity, May Shower, Use Walker Weight Bearing Status: Weight bearing as tolerated Call your doctor if you observe: Fever of 101 or Higher, Inability to urinate, Inability to have a bowel movement, Shortness of breath, Chest pain, Uncontrolled pain Allergies/Adverse Reactions: Allergies No Known Allergies Allergy (Verified 05/07/20 06:07) Medications to take at Discharge Calcium Carb/Vitamin D [Caltrate-600 With Vit D Tab] 1 tab PO DAILY@0800 10/09/14 Hydroxychloroquine [Plaquenil] 200 mg PO BIDCM 10/09/14 Trazodone HCl 150 mg PO QHS 09/22/17 Finasteride [Proscar] 5 mg PO DAILY 12/10/18 methotrexate sodium 2.5 mg tablet 20 mg PO JONES 01/29/19 ascorbic acid (vitamin C) 500 mg chewable tablet 500 mg PO DAILY tab 01/30/19 golimumab 12.5 mg/mL intravenous solution 135 mg IV [id number] ml 01/30/19 mecobalamin (vitamin B12) 5,000 mcg disintegrating tablet 2,500 mcg PO DAILY tab 01/30/19 topiramate 25 mg tablet 25 mg PO BID 01/30/19 baclofen 10 mg tablet 10 mg PO TID PRN 11/11/19 folic acid 800 mcg tablet 1.6 mg PO DAILY tab 11/11/19 CBD Tincture Oil 250 mg TOPICAL PRN PRN 04/06/20 herbal supplement 1 cap PO DAILY 04/06/20 wmmqrgig-mmhwnmcf-gpxac acid 400 mcg-vit K 20 mcg-lycop 300 mcg tablet 1 tab PO DAILY 04/06/20 turmeric 400 mg capsule 400 mg PO DAILY cap 04/06/20 Acetaminophen [Tylenol] 1,000 mg PO Q6H PRN tab 06/01/20 Apixaban [Eliquis] 2.5 mg PO BID #60 tab 06/01/20 Menthol/Lanolin/Calamine/Znox [Calmoseptine Ointment] 1 applic TOPICAL 0600,2200 tube 06/01/20 Metoprolol Tartrate [Lopressor (beta santiago)] 12.5 mg PO BID #30 tab 06/01/20 Mirtazapine [Remeron] 7.5 mg PO QHS #30 tab 06/01/20 Oxycodone [Oxyir] 10 mg PO Q4H PRN #36 tablet 06/01/20 Polyethylene Glycol 3350 [Miralax] 17 gm PO DAILY #30 packet 06/01/20 Senna/Docusate Sodium [Senokot-S] 2 tab PO BID #120 tab 06/01/20 Tamsulosin HCl [Flomax] 0.4 mg PO DAILY@1730 #30 cap 06/01/20 fentaNYL patch [Duragesic Patch] 12 mcg TD Q3D #1 patch 06/01/20 traMADol [Ultram] 50 mg PO Q6H PRN PRN #12 tablet 06/01/20 The following prescriptions were given: fentaNYL patch [Duragesic Patch] 12 mcg TD Q3D #1 patch Transmission Status: Sent to [employer] #30 Apixaban [Eliquis] 2.5 mg PO BID #60 tab Transmission Status: Pending to [employer] #30 Tamsulosin HCl [Flomax] 0.4 mg PO DAILY@1730 #30 cap Transmission Status: Pending to [employer] #30 Metoprolol Tartrate [Lopressor (beta santiago)] 12.5 mg PO BID #30 tab Transmission Status: Pending to [employer] #30 Polyethylene Glycol 3350 [Miralax] 17 gm PO DAILY #30 packet Transmission Status: Pending to [employer] #30 Oxycodone [Oxyir] 10 mg PO Q4H PRN #36 tablet PRN Reason: Pain Score 6-10 Transmission Status: Sent to [employer] #30 Mirtazapine [Remeron] 7.5 mg PO QHS #30 tab Transmission Status: Pending to [employer] #30 Senna/Docusate Sodium [Senokot-S] 2 tab PO BID #120 tab Transmission Status: Pending to [employer] #30 traMADol [Ultram] 50 mg PO Q6H PRN PRN #12 tablet PRN Reason: Pain Score 4-5 Transmission Status: Sent to [employer] #30 Primary Care Physician: Gloria Hazel MD [Primary Care Provider] - Please follow up with your Primary Care Physician in: 1 week. Test Results: Test results from this visit will be discussed in further detail at your follow-up appointment, if applicable. Please Follow Up With: Gloria Hazel MD When: 1 week. Please Follow Up With: Vlad Alfaro DO When: 1 day. Proposed Discharge Date: 06/04/20
--- NOTE | 2020-06-01 18:41 | PCM.DC.SUM ---
Discharge Date and Diagnosis - Problem List Patient Problems: Active and Suspected Problems (Last Updated 04/06/20 @ 10:53 by Tracy Gottlieb) Debility (Acute) Lumbar spinal stenosis (Acute) Atrial fibrillation with rapid ventricular response (Acute) Date of Admission: 05/13/20 Date of Discharge: 06/04/20 - Primary Discharge Diagnosis Acute Problems: Active Problems (Last Updated 04/06/20 @ 10:53 by Tracy Gottlieb) Debility (Acute) Lumbar spinal stenosis (Acute) Atrial fibrillation with rapid ventricular response (Acute) - Secondary Discharge Diagnosis Chronic Problems: Chronic Problems (Last Updated 04/06/20 @ 10:53 by Tracy Gottlieb) Muscle spasm (Chronic) GERD (gastroesophageal reflux disease) (Chronic) Rheumatoid arthritis (Chronic) SVT (supraventricular tachycardia) (Chronic) Insomnia (Chronic) BPH (benign prostatic hyperplasia) (Chronic) Abnormal EKG (Chronic) Abnormal echocardiogram (Chronic) Left ventricular hypokinesis (Chronic) Leg pain, bilateral (Chronic) Edema (Chronic) Hospital Course and Treatment Imaging Results: 05/13/20 18:42 Diet: Regular - General Food consistency:: Regular Liquid Consistency:: Regular/Thin Is pt able to select menu?: Yes Clinical Impression(s) from Imaging Studies Ankle X-Ray 05/21/20 09:57 IMPRESSION: Soft tissue swelling. Vascular calcification. Demineralization of the bony structures. Electronically Signed: Nicko Yoon, at 14:20 EST , Service support , Microbiology 06/01/20 11:30 Nasal Secretion SARS-CoV-2 Antigen (Rapid) - Final Operations: None Procedures: None Summary of Care Provided: The patient is a 79 year old Male with below past medical history hospitalized for lumbar spine surgery 05/07/20, postoperative course complicated by atrial fibrillation with rapid ventricular response, admitted to TCU with debility, here for rehabilitation, strengthening, prior to discharge home alone. Mirtazapine added for appetite loss, can discontinue as outpatient. Discharge home alone, [facility] PT/OT. Patient Problems: Active and Suspected Problems (Last Updated 04/06/20 @ 10:53 by Tracy Gottlieb) Debility (Acute) Lumbar spinal stenosis (Acute) Atrial fibrillation with rapid ventricular response (Acute) - Physical Exam Vitals/I&O's: Vital Signs Temp Pulse Resp BP Pulse Ox 98.4 F 70 18 104/51 L 93 06/01/20 13:51 06/01/20 13:51 06/01/20 13:51 06/01/20 13:51 06/01/20 13:51 Oxygen Delivery Method Room Air Weight: 58.117 kg Body Mass Index (BMI) 26.4 Intake and Output for Last 24 Hours 05/30/20 05/31/20 06/01/20 23:59 23:59 23:59 Intake Total 600 / 600 240 / 240 360 / 360 Balance 600 / 600 240 / 240 360 / 360 Microbiology Past 72 Hours 06/01/20 11:30 Nasal Secretion SARS-CoV-2 Antigen (Rapid) - Final Current Medications Acetaminophen (Acetaminophen 500 Mg Tablet) 1,000 mg PO Q6H PRN PRN Reason: Pain Score 1-3 Last Admin: 05/21/20 14:26 Dose: 1,000 mg Documented by: Apixaban (Apixaban 2.5 Mg Tablet) 2.5 mg PO BID [facility] Last Admin: 06/01/20 17:28 Dose: 2.5 mg Documented by: Baclofen (Baclofen 10 Mg Tablet) 10 mg PO TID PRN PRN Reason: MUSCLE SPASM Last Admin: 05/22/20 02:31 Dose: 10 mg Documented by: Bisacodyl (Bisacodyl 10 Mg Suppository) 10 mg RECTAL DAILY PRN PRN Reason: Constipation Calamine/Phenol (Menthol/Lanolin/Calamine/Znox 113 Gm Tube) 1 applic TOPICAL 0600,2200 [facility]; Protocol Last Admin: 06/01/20 06:00 Dose: 1 applicatio Documented by: Compound Med (Arthritis Pain Compound 60 Click Tube) 0 click TOPICAL TID [facility]; Protocol Last Admin: 06/01/20 13:09 Dose: 1 click Documented by: Fentanyl (Fentanyl 12 Mcg Patch) 12 mcg TD Q3D [facility] Last Admin: 05/31/20 13:49 Dose: 12 mcg Documented by: Finasteride (Finasteride 5 Mg Tablet) 5 mg PO DAILY [facility] Last Admin: 06/01/20 05:58 Dose: 5 mg Documented by: Folic Acid (Folic Acid 1 Mg Tablet) 1 mg PO DAILY@0800 [facility] Last Admin: 06/01/20 07:51 Dose: 1 mg Documented by: Hydrocortisone (Hydrocortisone 2.5% Crm) 1 applic TOPICAL BID PRN PRN; Protocol PRN Reason: Apply to rash on back for irritation Last Admin: 05/18/20 09:39 Dose: 1 applicatio Documented by: Hydroxychloroquine Sulfate (Hydroxychloroquine 200 Mg Tablet) 200 mg PO BIDCM [facility] Last Admin: 06/01/20 17:28 Dose: 200 mg Documented by: Magnesium Hydroxide (Magnesium Hydroxide 30 Ml Udc) 30 ml PO DAILY PRN PRN Reason: Constipation Methotrexate (Methotrexate 2.5 Mg Tablet) 20 mg PO JONES [facility] Last Admin: 05/31/20 09:17 Dose: 20 mg Documented by: Metoprolol Tartrate (Metoprolol Tartrate 25 Mg Tablet) 12.5 mg PO BID [facility] Last Admin: 06/01/20 17:35 Dose: Not Given Documented by: Mirtazapine (Mirtazapine 15 Mg Tablet) 7.5 mg PO QHS [facility] Last Admin: 05/31/20 23:13 Dose: 7.5 mg Documented by: Nutritional Formula (Lactose Free) (Ensure Enlive 120 Ml Liquid) 120 ml PO 4X/DAY [facility] Last Admin: 06/01/20 17:27 Dose: 120 ml Documented by: Oxycodone HCl (Oxycodone 5 Mg Tablet) 10 mg PO Q4H PRN PRN Reason: Pain Score 6-10 Last Admin: 06/01/20 17:34 Dose: 10 mg Documented by: Polyethylene Glycol (Polyethylene Glycol 3350 17 Gm Packet) 17 gm PO DAILY [facility] Last Admin: 06/01/20 05:59 Dose: Not Given Documented by: Senna/Docusate Sodium (Senna/Docusate Sodium 1 Tablet) 2 tablet PO BID [facility] Last Admin: 06/01/20 17:29 Dose: 1 tablet Documented by: Sodium Chloride (0.9% Saline Lock 10 Ml Syringe) 10 - 40 ml IV UD PRN PRN Reason: SALINE FLUSH Last Admin: 05/14/20 05:41 Dose: 10 ml Documented by: Tamsulosin HCl (Tamsulosin Hcl 0.4 Mg Capsule) 0.4 mg PO DAILY@1730 [facility] Last Admin: 06/01/20 17:28 Dose: 0.4 mg Documented by: Topiramate (Topiramate 25 Mg Tablet) 25 mg PO BID [facility] Last Admin: 06/01/20 17:30 Dose: 25 mg Documented by: Tramadol HCl (Tramadol 50 Mg Tablet) 50 mg PO Q6H PRN PRN PRN Reason: Pain Score 4-5 Last Admin: 05/31/20 23:16 Dose: 50 mg Documented by: Trazodone HCl (Trazodone 100 Mg Tablet) 150 mg PO QHS [facility] Last Admin: 05/31/20 23:13 Dose: 150 mg Documented by: Discharge Diet: No Restrictions Discharge Activity: Return to Normal Activity, May Shower, Use Walker Weight Bearing Status: Weight bearing as tolerated Call your doctor if you observe: Fever of 101 or Higher, Inability to urinate, Inability to have a bowel movement, Shortness of breath, Chest pain, Uncontrolled pain Home Medications: Medications to take at Discharge Calcium Carb/Vitamin D [Caltrate-600 With Vit D Tab] 1 tab PO DAILY@0800 10/09/14 Hydroxychloroquine [Plaquenil] 200 mg PO BIDCM 10/09/14 Trazodone HCl 150 mg PO QHS 09/22/17 Finasteride [Proscar] 5 mg PO DAILY 12/10/18 methotrexate sodium 2.5 mg tablet 20 mg PO JONES 01/29/19 ascorbic acid (vitamin C) 500 mg chewable tablet 500 mg PO DAILY tab 01/30/19 golimumab 12.5 mg/mL intravenous solution 135 mg IV [id number] ml 01/30/19 mecobalamin (vitamin B12) 5,000 mcg disintegrating tablet 2,500 mcg PO DAILY tab 01/30/19 topiramate 25 mg tablet 25 mg PO BID 01/30/19 baclofen 10 mg tablet 10 mg PO TID PRN 11/11/19 folic acid 800 mcg tablet 1.6 mg PO DAILY tab 11/11/19 CBD Tincture Oil 250 mg TOPICAL PRN PRN 04/06/20 herbal supplement 1 cap PO DAILY 04/06/20 wqyhbsjd-vvwhebdf-cpcik acid 400 mcg-vit K 20 mcg-lycop 300 mcg tablet 1 tab PO DAILY 04/06/20 turmeric 400 mg capsule 400 mg PO DAILY cap 04/06/20 Acetaminophen [Tylenol] 1,000 mg PO Q6H PRN tab 06/01/20 Apixaban [Eliquis] 2.5 mg PO BID #60 tab 06/01/20 Menthol/Lanolin/Calamine/Znox [Calmoseptine Ointment] 1 applic TOPICAL 0600,2200 tube 06/01/20 Metoprolol Tartrate [Lopressor (beta santiago)] 12.5 mg PO BID #30 tab 06/01/20 Mirtazapine [Remeron] 7.5 mg PO QHS #30 tab 06/01/20 Oxycodone [Oxyir] 10 mg PO Q4H PRN #36 tablet 06/01/20 Polyethylene Glycol 3350 [Miralax] 17 gm PO DAILY #30 packet 06/01/20 Senna/Docusate Sodium [Senokot-S] 2 tab PO BID #120 tab 06/01/20 Tamsulosin HCl [Flomax] 0.4 mg PO DAILY@1730 #30 cap 06/01/20 fentaNYL patch [Duragesic Patch] 12 mcg TD Q3D #1 patch 06/01/20 traMADol [Ultram] 50 mg PO Q6H PRN PRN #12 tablet 06/01/20 Following Prescriptions Were Given to Patient: fentaNYL patch [Duragesic Patch] 12 mcg TD Q3D #1 patch Transmission Status: Sent to [facility] Apixaban [Eliquis] 2.5 mg PO BID #60 tab Transmission Status: Pending to [facility] Tamsulosin HCl [Flomax] 0.4 mg PO DAILY@1730 #30 cap Transmission Status: Pending to [facility] Metoprolol Tartrate [Lopressor (beta santiago)] 12.5 mg PO BID #30 tab Transmission Status: Pending to [facility] Polyethylene Glycol 3350 [Miralax] 17 gm PO DAILY #30 packet Transmission Status: Pending to [facility] Oxycodone [Oxyir] 10 mg PO Q4H PRN #36 tablet PRN Reason: Pain Score 6-10 Transmission Status: Sent to [facility] Mirtazapine [Remeron] 7.5 mg PO QHS #30 tab Transmission Status: Pending to [facility] Senna/Docusate Sodium [Senokot-S] 2 tab PO BID #120 tab Transmission Status: Pending to [facility] traMADol [Ultram] 50 mg PO Q6H PRN PRN #12 tablet PRN Reason: Pain Score 4-5 Transmission Status: Sent to [facility] Primary Care Physician: Gloria Hazel MD [Primary Care Provider] - Please follow up with your Primary Care Physician in: 1 week. Please Follow Up With: Gloria Hazel MD When: 1 week. Please Follow Up With: Vlad Alfaro DO When: 1 day. Disposition: Home with Home Health Minutes spent on discharge:: 35 Patient Condition:: Stable Medical Necessity - Tobacco Use Smoking Status: Former smoker Tobacco Use: Non-smoker Meaningful Use Info Meaningful Use Diagnoses (Choose all that apply): None applicable
[2020-06-01] MEDS: Mirtazapine 15 MG Tablet 7.5 MG PO (21:52)
[2020-06-01] MEDS: traZODone 100 MG Tablet 150 MG PO (23:04)
[2020-06-02 06:43] VITALS: BP 126/64; PULSE 78; RESP 16; TEMP 36.9; O2SAT 98
[2020-06-02] MEDS: APIXABAN 2.5 MG TABLET PO ×2 (06:44→17:55)
[2020-06-02 06:45] VITALS: BP 126/64; PULSE 78
[2020-06-02] MEDS: Metoprolol Tartrate 25 MG Tablet 12.5 MG PO (06:45)
[2020-06-02] MEDS: Senna/Docusate Sodium 1 Tablet 2 TABLET PO ×2 (06:46→17:55)
[2020-06-02] MEDS: Finasteride 5 MG Tablet PO (06:46)
[2020-06-02] MEDS: Topiramate 25 MG Tablet PO ×2 (06:49→17:56)
[2020-06-02] MEDS: Menthol/Lanolin/Calamine/Znox 113 GM Tube 1 APPLIC TOPICAL ×2 (06:49→22:04)
[2020-06-02] MEDS: Arthritis Pain Compound 60 CLICK TUBE TOPICAL ×3 (06:49→22:02)
[2020-06-02] MEDS: Hydroxychloroquine 200 MG Tablet PO ×2 (07:57→17:55)
[2020-06-02] MEDS: Folic Acid 1 MG Tablet PO (07:57)
[2020-06-02] MEDS: oxyCODONE 5 MG Tablet 10 MG PO ×3 (11:34→22:00)
[2020-06-02 16:00] VITALS: BP 96/48; PULSE 64; RESP 16; TEMP 36.6; O2SAT 94
[2020-06-02] MEDS: Tamsulosin HCl 0.4 MG Capsule PO (17:55)
[2020-06-02] MEDS: Mirtazapine 15 MG Tablet 7.5 MG PO (22:00)
[2020-06-02] MEDS: traZODone 100 MG Tablet 150 MG PO (22:53)
[2020-06-02 22:55] VITALS: PULSE 78; RESP 16; O2SAT 96
--- NOTE | 2020-06-03 00:59 | NURSING ---
Duragesic patch noted to left mid back
[2020-06-03 05:00] VITALS: BP 120/54; PULSE 66; RESP 18; TEMP 36.8; O2SAT 93
[2020-06-03 05:58] VITALS: BP 120/54; PULSE 66
[2020-06-03] MEDS: Senna/Docusate Sodium 1 Tablet 2 TABLET PO (05:58)
[2020-06-03] MEDS: Arthritis Pain Compound 60 CLICK TUBE TOPICAL ×3 (05:58→20:27)
[2020-06-03] MEDS: Metoprolol Tartrate 25 MG Tablet 12.5 MG PO (05:58)
[2020-06-03] MEDS: APIXABAN 2.5 MG TABLET PO ×2 (05:59→16:44)
[2020-06-03] MEDS: Topiramate 25 MG Tablet PO ×2 (06:01→16:44)
[2020-06-03] MEDS: Finasteride 5 MG Tablet PO (06:01)
[2020-06-03] MEDS: Menthol/Lanolin/Calamine/Znox 113 GM Tube 1 APPLIC TOPICAL ×2 (06:04→20:35)
[2020-06-03] MEDS: oxyCODONE 5 MG Tablet 10 MG PO ×3 (09:48→20:23)
[2020-06-03] MEDS: Folic Acid 1 MG Tablet PO (09:48)
[2020-06-03] MEDS: Hydroxychloroquine 200 MG Tablet PO ×2 (09:48→16:44)
[2020-06-03 13:39] VITALS: BP 92/52; PULSE 59; RESP 14; TEMP 36.7; O2SAT 97
[2020-06-03 16:41] VITALS: BP 92/52
[2020-06-03] MEDS: Tamsulosin HCl 0.4 MG Capsule PO (16:44)
[2020-06-03] MEDS: Mirtazapine 15 MG Tablet 7.5 MG PO (20:23)
[2020-06-03] MEDS: traZODone 100 MG Tablet 150 MG PO (23:03)
[2020-06-04 05:00] VITALS: BP 126/67; PULSE 60; RESP 16; TEMP 36.8; O2SAT 95
[2020-06-04 05:37] LABS: Absolute Neutrophil Count 1.8 X10^3/uL (2.0-7.7); Basophil# 0.05 X10^3/uL; Eosinophil# 0.71 X10^3/uL; Eosinophils% 14.8 % (0-5); Hematocrit 33.9 % (40-54); Hemoglobin 10.9 g/dL (13.0-16.5); Lymphocyte % 31.3 % (19-41); Mean Corp Hgb Conc 32.2 g/dL (32-36); Mean Corpuscular Volume 96.3 fL (80-94); Mean Platelet Vol. 9.6 fl (6.2-12.0); Monocyte# 0.74 X10^3/uL; Monocyte% 15.4 % (0-10); NRBC Flagged by Analyzer 0 % (0-5); Neutrophil # 1.79 X10^3/uL (2.7-7.7); Neutrophil % 37.3 % (47-70); Platelet Count 184 K/mm3 (150-450); RBC Distribution Width CV 14.2 % (11.6-14.6); RBC Distribution Width SD 49.4 fl (35.1-43.9); Red Blood Count 3.52 M/mm3 (4.6-6.2); White Blood Count 4.8 K/mm3 (4.4-11.0)
[2020-06-04 05:55] LABS: Anion Gap 5 (5-15); BUN 18 mg/dL (7-18); Calcium,Total 8.3 mg/dL (8.5-10.1); Chloride 109 mmol/L (98-107); EST Glomerular Filtration Rate 87 mL/min (>60); Est Glom Filt Rate - Afr Amer 105 mL/min (>60); Estimated Creatinine Clearance 53.08 ml/min; Glucose 86 mg/dL (74-106); Potassium 3.5 mmol/L (3.5-5.1); Sodium Level 141 mmol/L (136-145)
[2020-06-04 07:05] VITALS: BP 126/67; PULSE 60
[2020-06-04] MEDS: Metoprolol Tartrate 25 MG Tablet 12.5 MG PO (07:05)
[2020-06-04] MEDS: Senna/Docusate Sodium 1 Tablet 2 TABLET PO (07:05)
[2020-06-04] MEDS: Finasteride 5 MG Tablet PO (07:06)
[2020-06-04] MEDS: APIXABAN 2.5 MG TABLET PO (07:06)
[2020-06-04] MEDS: Topiramate 25 MG Tablet PO (07:06)
[2020-06-04] MEDS: Arthritis Pain Compound 60 CLICK TUBE TOPICAL (07:07)
[2020-06-04] MEDS: Menthol/Lanolin/Calamine/Znox 113 GM Tube 1 APPLIC TOPICAL (07:08)
--- NOTE | 2020-06-04 07:12 | NURSING ---
Duragesic patch noted to right shoulder
[2020-06-04] MEDS: Hydroxychloroquine 200 MG Tablet PO (09:02)
[2020-06-04] MEDS: Folic Acid 1 MG Tablet PO (09:02)
[2020-06-04] MEDS: oxyCODONE 5 MG Tablet 10 MG PO (09:04)
[2020-06-04 10:00] VITALS: PULSE 69; RESP 18; O2SAT 97
[2020-06-04 10:10] VITALS: BP 93/56; PULSE 69; RESP 18; TEMP 36.9; O2SAT 97
== END 2020-06-04 11:30 | disposition home health service (06) | DRG 560 ==
PROVIDERS: Internal Medicine; Admitting Provider Family Medicine Geriatric Medicine; PCP Family Medicine; Visit Provider Family Medicine Geriatric Medicine
DX: Z47.89 Encounter for other orthopedic aftercare (principal); I47.1 Supraventricular tachycardia; I48.91 Unspecified atrial fibrillation; M06.9 Rheumatoid arthritis, unspecified; G47.00 Insomnia, unspecified; K21.9 Gastro-esophageal reflux disease without esophagitis; Z87.891 Personal history of nicotine dependence; N40.1 Benign prostatic hyperplasia with lower urinary tract symptoms; N39.498 Other specified urinary incontinence; G89.4 Chronic pain syndrome; M10.072 Idiopathic gout, left ankle and foot; M48.061 Spinal stenosis, lumbar region without neurogenic claudication
CPT/HCPCS: 36415; 73600; 80048; 80053; 81001; 83735; 84100; 84550; 85025; 85027; 87426; 87635; 97110; 97116; 97162; 97166; 97530; 97535; A4216; J8610; U0003

== ENCOUNTER → 2020-07-01 16:37 | Outpatient (CLI) | payer MEDICARE, SELFPAY ==
[2020-07-01 17:46] LABS: Absolute Lymphocyte Count 1.31 X10^3/uL (0.83-4.51); Absolute Neutrophil Count 5.1 X10^3/uL (2.0-7.7); Basophil# 0.08 X10^3/uL; Eosinophil# 0.49 X10^3/uL; Eosinophils% 6.3 % (0-5); Hematocrit 40.4 % (40-54); Hemoglobin 12.4 g/dL (13.0-16.5); Lymphocyte # 1.31 X10^3/ul (4.0); Lymphocyte % 16.9 % (19-41); Mean Corp Hgb Conc 30.7 g/dL (32-36); Mean Corpuscular Hgb 29.7 pg (27.0-32.0); Mean Corpuscular Volume 96.7 fL (80-94); Mean Platelet Vol. 9.4 fl (6.2-12.0); Monocyte# 0.73 X10^3/uL; Monocyte% 9.4 % (0-10); NRBC Flagged by Analyzer 0 % (0-5); Neutrophil # 5.11 X10^3/uL (2.7-7.7); Neutrophil % 66.1 % (47-70); Platelet Count 205 K/mm3 (150-450); RBC Distribution Width CV 14.2 % (11.6-14.6); RBC Distribution Width SD 51.5 fl (35.1-43.9); Red Blood Count 4.18 M/mm3 (4.6-6.2); White Blood Count 7.7 K/mm3 (4.4-11.0)
[2020-07-01 18:18] LABS: ALB/GLOB Ratio 1.1 RATIO (0.9-2.4); AST(SGOT) 21 U/L (15-37); Alanine Aminotransfer ALT/SGPT 20 U/L (16-61); Albumin, Serum 3.6 g/dL (3.2-5.0); Alkaline Phosphatase 73 U/L (45-117); Anion Gap 4 (5-15); BUN 9 mg/dL (7-18); BUN/Creat Ratio 9.7 RATIO (10-20); Chloride 104 mmol/L (98-107); Creatinine, Serum 0.93 mg/dL (0.70-1.30); EST Glomerular Filtration Rate 84 mL/min (>60); Est Glom Filt Rate - Afr Amer 102 mL/min (>60); Globulin 3.4 g/dL (2.2-4.2); Glucose 86 mg/dL (74-106); Potassium 4.1 mmol/L (3.5-5.1); Sodium Level 138 mmol/L (136-145)
== END ==
PROVIDERS: PCP Family Medicine; Referring Provider Internal Medicine Rheumatology; Visit Provider Internal Medicine Rheumatology
DX: M05.70 Rheumatoid arthritis with rheumatoid factor of unspecified site without organ or systems involvement (principal); M25.512 Pain in left shoulder; M17.0 Bilateral primary osteoarthritis of knee; G47.00 Insomnia, unspecified; M21.40 Flat foot [pes planus] (acquired), unspecified foot; M47.897 Other spondylosis, lumbosacral region; I87.2 Venous insufficiency (chronic) (peripheral); N40.1 Benign prostatic hyperplasia with lower urinary tract symptoms; Z79.899 Other long term (current) drug therapy
CPT/HCPCS: 36415; 80053; 85025

== ENCOUNTER 2020-07-13 18:43 | Observation (INO) | payer MEDICARE, SELFPAY ==
[2020-07-13 18:45] VITALS: BP 121/60; PULSE 89; RESP 18; TEMP 36.3; O2SAT 95; BMI 26.5
--- NOTE | 2020-07-13 19:06 | CT_ITS ---
STUDY: CT ABDOMEN AND PELVIS WITH CONTRAST REASON FOR EXAM: Male, 79 years old. RLQ PAIN, RT GROIN PAIN WRAPS AROUND TO RT BUTTOCK. RADIATION DOSAGE (If Supplied By Facility): CTDIvol = ( 10.77 ) mGy, DLP = ( 549.41 ) mGycm TECHNIQUE: Transaxial images were obtained from the dome of the diaphragm to the symphysis pubis without oral contrast. IV 100mL Isovue-370 was administered. Sagittal and coronal images were reconstructed. Individualized dose optimization techniques were used for this CT. COMPARISON: CT of abdomen and pelvis dated March 24, 2018 FINDINGS: There are chronic interstitial fibrotic changes of the lung bases. Reidentification of nonenhancing benign cyst in the dome of the right and left lobes of the liver as well as mild intrahepatic and extrahepatic biliary duct dilatation likely postcholecystectomy related. Absent gallbladder compatible with prior cholecystectomy. Normal spleen. Normal pancreas. Normal bilateral adrenal glands. Normal right kidney. Normal left kidney. No visualized hydronephrosis or large radiopaque stones of the kidneys. There is a small hiatal hernia. Normal small intestine. There are multiple colonic diverticula consistent with diverticulosis. There is non-visualization of the appendix. There is diffuse atherosclerotic calcification of the abdominal aorta, without a demonstrated aneurysm. Normal inferior vena cava. Normal retroperitoneum. Normal urinary bladder. Small bilateral fat-containing inguinal hernias noted. A small amount of ascites is present in the left hernia sac. There are diffuse degenerative changes of the visualized lumbar spine. CT/Abdomen/Pelvis W IV Cont ONLY IMPRESSION: 1. Reidentification of nonenhancing benign cyst in the dome of the right and left lobes of the liver as well as mild intrahepatic and extrahepatic biliary duct dilatation likely postcholecystectomy related. Absent gallbladder compatible with prior cholecystectomy. 2. The appendix was not on this exam or the prior study dated February 20172017 and may not have developed or could have been previously removed. 3. No visualized hydronephrosis. 4. Colonic diverticulosis. 5. Small bilateral fat-containing hernias. Electronically Signed: Phong Ho MD at 20:51 EST , Service support ,
[2020-07-13] MEDS: Ondansetron 4 MG/2 ML Vial IV (19:19)
[2020-07-13] MEDS: Morphine 4 MG/ML Syringe IV ×2 (19:19→20:31)
--- NOTE | 2020-07-13 19:21 | ED.VISSUMM ---
- ER Visit Summary Date of Service: 07/13/20 Chief Complaint: Right groin and buttock pain History of Present Illness: The patient is a [address] Hazel and Dr. Alfaro. He reports that he had a lumbar laminectomy on May [address] Alfaro. He was in the TCU from May 13 to June 04. States that yesterday he was sleeping on his back and he rolled over and heard something give in his right groin and right buttock and had the abrupt onset of pain. He denies any back pain. No fall or MVA. He denies any numbness or weakness. Patient reports pain is sharp and 10 out of 10 severity. Is worsened by movement of his right leg. It is relieved minimally by oxycodone. His last dose was at 3 PM. Review of systems: General: No fever, chills, cold sweats. Cardiovascular: No chest pain, palpitations. Respiratory: No cough, shortness of breath, dyspnea on exertion. Gastrointestinal: No abdominal pain, nausea, vomiting, diarrhea, melena, or hematochezia. Genitourinary: No dysuria, frequency, hematuria. No testicular or scrotal pain. Skin: No rash. Neuro: No headache, numbness, weakness. Physical Examination: Vitals: Stable. Afebrile. General: Well-nourished and well-developed. Head: Normocephalic atraumatic. Neck: Supple, no lymphadenopathy. No JVD. Nontender. Cardiovascular: Regular rate and rhythm. 2 out of 6 systolic murmur. Respiratory: No respiratory distress. Clear to auscultation bilaterally. Abdominal: Soft, mild right lower quadrant tenderness to palpation, nondistended, normal bowel sounds. No guarding, rebound, or peritoneal signs. Back: Midline lumbar incision is healed well. It is clean, dry, and intact. There is no surrounding erythema. Not tender to palpation. He has severe tenderness palpation to the medial side of his right buttock. I suspect this is actually over the superior portion of his SI joint. Extremities: No tenderness to palpation over his right greater trochanter. He has 2+ pitting edema lower extremities bilaterally. Skin: Normal color, no rash. Neurologic: Alert and oriented ?3. Cranial nerves II through XII are intact. Normal strength and sensation. Psych: Normal affect. Test Results: CBC shows an H&H of 12.4 and 38.1. Chem-7 is normal. Clinical Impression(s) from Imaging Studies Abdomen/Pelvis CT 07/13/20 19:06 IMPRESSION: 1. Reidentification of nonenhancing benign cyst in the dome of the right and left lobes of the liver as well as mild intrahepatic and extrahepatic biliary duct dilatation likely postcholecystectomy related. Absent gallbladder compatible with prior cholecystectomy. 2. The appendix was not on this exam or the prior study dated February 20172017 and may not have developed or could have been previously removed. 3. No visualized hydronephrosis. 4. Colonic diverticulosis. 5. Small bilateral fat-containing hernias. Electronically Signed: Phong Ho MD at 20:51 EST , Service support , Hip/Pelvis X-Ray 07/13/20 20:00 IMPRESSION: No visualized fracture. Electronically Signed: Phong Ho MD at 20:39 EST , Service support , Emergency Department Course and Treatment: Patient had an IV placed. He was given morphine and Zofran IV. He is resting more comfortably. He continues to complain of pain that is 8 out of 10 severity after 2 doses of morphine. He can barely move his leg let alone get out and walk. He lives by himself. Treatment Plan: Patient was discussed with Dr. Alfaro who does not feel that this is related to the surgery. He was also discussed with Dr. Greenwood and will be admitted for further evaluation and treatment. Disposition: Admitted in improved condition. Impression: 1. Intractable right groin pain, uncertain cause. This note was generated with [employer] software. It may contain incorrect words, spelling, and punctuation that were not noted in review of the chart prior to signing ED Disposition - Plan for ED Patient: Referrals: Gloria Hazel MD [Primary Care Provider] -
[2020-07-13 19:32] LABS: Absolute Lymphocyte Count 2.29 X10^3/uL (0.83-4.51); Absolute Neutrophil Count 4.7 X10^3/uL (2.0-7.7); Basophil# 0.05 X10^3/uL; Basophil% 0.6 % (0-1); Eosinophil# 0.84 X10^3/uL; Eosinophils% 9.3 % (0-5); Hematocrit 38.1 % (40-54); Hemoglobin 12.4 g/dL (13.0-16.5); Lymphocyte # 2.29 X10^3/ul (4.0); Lymphocyte % 25.5 % (19-41); Mean Corp Hgb Conc 32.5 g/dL (32-36); Mean Corpuscular Hgb 30.9 pg (27.0-32.0); Mean Platelet Vol. 9.8 fl (6.2-12.0); Monocyte# 1.07 X10^3/uL; Monocyte% 11.9 % (0-10); NRBC Flagged by Analyzer 0 % (0-5); Neutrophil # 4.72 X10^3/uL (2.7-7.7); Neutrophil % 52.5 % (47-70); Platelet Count 200 K/mm3 (150-450); RBC Distribution Width CV 13.9 % (11.6-14.6); RBC Distribution Width SD 48.3 fl (35.1-43.9); Red Blood Count 4.01 M/mm3 (4.6-6.2)
[2020-07-13 19:45] LABS: Anion Gap 5 (5-15); BUN 10 mg/dL (7-18); Calcium,Total 8.9 mg/dL (8.5-10.1); Chloride 102 mmol/L (98-107); Creatinine, Serum 0.91 mg/dL (0.70-1.30); EST Glomerular Filtration Rate 86 mL/min (>60); Est Glom Filt Rate - Afr Amer 104 mL/min (>60); Estimated Creatinine Clearance 54.71 ml/min; Glucose 81 mg/dL (74-106); Sodium Level 137 mmol/L (136-145)
--- NOTE | 2020-07-13 20:00 | RAD_ITS ---
STUDY: X-RAY - PELVIS AND RIGHT HIP REASON FOR EXAM: Male, 79 years old. patient has right groin pain, no injury TECHNIQUE: 3 views of the pelvis and hip. COMPARISON: None. FINDINGS: There is a non-specific bowel gas pattern. Normal visualized soft tissue structures. No visualized fracture or dislocation. Normal bilateral iliac wings, sacroiliac joints and visualized sacrum. Normal bilateral superior and inferior pubic rami. Normal pubic symphysis. Normal bilateral ischial tuberosities. Normal visualized femoral head. Normal acetabulum. Normal hip joint. Mild atherosclerotic calcifications are present. RAD/HIP, UNI W/ Pelvis 2-3 Views IMPRESSION: No visualized fracture. Electronically Signed: Phong Ho MD at 20:39 EST , Service support ,
[2020-07-13 20:38] VITALS: BP 115/79; PULSE 82; RESP 16; O2SAT 93
--- NOTE | 2020-07-13 21:23 | HP.PCM_ITS ---
Problem List (1) Atrial fibrillation Status: Chronic Qualifiers: Atrial fibrillation type: paroxysmal Qualified Code(s): I48.0 - Paroxysmal atrial fibrillation (2) Debility Status: Chronic (3) Lumbar spinal stenosis Status: Chronic (4) Atrial fibrillation with rapid ventricular response Status: Chronic (5) Muscle spasm Status: Chronic (6) GERD (gastroesophageal reflux disease) Status: Chronic (7) Rheumatoid arthritis Status: Chronic (8) SVT (supraventricular tachycardia) Status: Chronic (9) Insomnia Status: Chronic (10) BPH (benign prostatic hyperplasia) Status: Chronic (11) Abnormal EKG Status: Chronic (12) Abnormal echocardiogram Status: Chronic (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 Reportedly patient was turning over and he heard a snap. Ever since he has had excruciating pain in his right groin. He described the pain as constant with occasional throbbing. The pain radiated to his right buttocks. He denies any ameliorating factors to the pain.The pain worsens when he tried to lift his right leg. Patient had back surgery with Dr. Alfaro in April 2020. Emergency department doctor reportedly discussed the case with Dr. Alfaro who did not feel patient's pain is related to his surgery but yet will stop by and see patient. Following his back surgery he spent some time at a TCU at our hospital and was eventually discharged home with home physical therapy. Reportedly home physical therapy has signed off since patient was doing well. Past Medical History Past Medical History (Chronic Problems): Chronic Problems (Last Reviewed 07/13/20 @ 21:[address] Catalino Greenwood MD) Atrial fibrillation (Chronic) Debility (Chronic) Lumbar spinal stenosis (Chronic) Atrial fibrillation with rapid ventricular response (Chronic) Muscle spasm (Chronic) GERD (gastroesophageal reflux disease) (Chronic) Rheumatoid arthritis (Chronic) SVT (supraventricular tachycardia) (Chronic) Insomnia (Chronic) BPH (benign prostatic hyperplasia) (Chronic) Abnormal EKG (Chronic) Abnormal echocardiogram (Chronic) Left ventricular hypokinesis (Chronic) Leg pain, bilateral (Chronic) Edema (Chronic) Medical History: Medical History (Last Reviewed 07/13/20 @ 21:[address] 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 Leg pain, bilateral (Chronic) M79.604, M79.605 Edema (Chronic) R60.9 H/o finger stitches Left index H/o three feet of intestines removed Hemorrhoids K64.9 PAT (paroxysmal atrial tachycardia) I47.1 SVT (supraventricular tachycardia) I47.1 Back pain M54.9 Rheumatoid arthritis M06.9 Allergies No Known Allergies Allergy (Verified 07/13/20 18:47) Home Medications: Ambulatory Orders Medication Instructions Recorded Calcium Carb/Vitamin D 1 tab PO DAILY@0800 10/09/14 [Caltrate-600 With Vit D Tab] Hydroxychloroquine [Plaquenil] 200 mg PO BIDCM 10/09/14 Trazodone HCl 150 mg PO QHS 09/22/17 Finasteride [Proscar] 5 mg PO DAILY 12/10/18 methotrexate sodium 2.5 mg tablet 20 mg PO JONES 01/29/19 ascorbic acid (vitamin C) 500 mg 500 mg PO DAILY tab 01/30/19 chewable tablet golimumab 12.5 mg/mL intravenous 135 mg IV [id number] ml 01/30/19 solution mecobalamin (vitamin B12) 5,000 2,500 mcg PO DAILY tab 01/30/19 mcg disintegrating tablet folic acid 800 mcg tablet 1.6 mg PO DAILY tab 11/11/19 CBD Tincture Oil 250 mg TOPICAL PRN PRN 04/06/20 herbal supplement 1 cap PO DAILY 04/06/20 xncccyst-whilqzok-bextw acid 400 1 tab PO DAILY 04/06/20 mcg-vit K 20 mcg-lycop 300 mcg tablet turmeric 400 mg capsule 400 mg PO DAILY cap 04/06/20 Acetaminophen [Tylenol] 1,000 mg PO Q6H PRN tab 06/01/20 Apixaban [Eliquis] 2.5 mg PO BID #60 tab 06/01/20 Menthol/Lanolin/Calamine/Znox 1 applic TOPICAL 0600,2200 tube 06/01/20 [Calmoseptine Ointment] Metoprolol Tartrate [Lopressor 12.5 mg PO BID #30 tab 06/01/20 (beta santiago)] Mirtazapine [Remeron] 7.5 mg PO QHS #30 tab 06/01/20 Polyethylene Glycol 3350 [Miralax] 17 gm PO DAILY #30 packet 06/01/20 Senna/Docusate Sodium [Senokot-S] 2 tab PO BID #120 tab 06/01/20 Tamsulosin HCl [Flomax] 0.4 mg PO DAILY@1730 #30 cap 06/01/20 Aspirin [Aspirin, Baby] 81 mg PO DAILY@0800 07/13/20 Oxycodone [Oxyir] 5 mg PO BID PRN 07/13/20 Surgical History: Surgical History (Last Reviewed 07/13/20 @ 21:[address] Catalino Greenwood MD) H/O colonoscopy Z98.890 H/O umbilical hernia repair Z98.890, Z87.19 S/P appendectomy Z90.49 S/P cataract surgery Z98.49 Bilateral S/P hemorrhoidectomy Z98.890, Z87.19 S/P inguinal hernia repair Z98.890, Z87.19 bilateral S/P laparoscopic cholecystectomy Z90.49 S/P left colectomy Z90.49 S/P rotator cuff repair Z98.890 Bilateral S/P vasectomy Z98.52 Surgical History: adenoidectomy, cataract, cholecystectomy - Laparoscopic., colectomy - Left., herniorrhaphy - Umbilical, Inguinal., rotator cuff repair, - - Hemorrhoidectomy, Vasectomy. Smoking Status: Former smoker - *Family History Maternal Family History: Family History (Last Reviewed 07/13/20 @ 21:[address] Catalino Greenwood MD) Father CVA (cerebral vascular accident) Brother CAD (coronary artery disease) Mother CVA (cerebral vascular accident) Grandfather Cancer Paternal Family History: Family History (Last Reviewed 07/13/20 @ 21:[address] Catalino Greenwood MD) Father CVA (cerebral vascular accident) Brother CAD (coronary artery disease) Mother CVA (cerebral vascular accident) Grandfather Cancer Review of Systems Constitutional: Denies: Chills, Fever, Weight Change HEENT: Denies: Head Aches, Sinus Congestion, Sinus Drainage Cardiovascular: Denies: Chest Pain, Palpitations Respiratory: Denies: Cough, Shortness of breath at rest, Sputum production Gastrointestinal: Denies: Abdominal Pain, Nausea, Vomiting Genitourinary: Denies: Dysuria Musculoskeletal: Denies: Joint Pain, Joint Tenderness Skin: Denies: Rash, Wounds Neurological: Denies: Numbness, Tingling, Focal weakness Psychiatric: Denies: Anxiety, Depression, Homicidal Ideations, Suicidal Ideations Hematologic/ Lymphatic: Denies: Easy Bruising, Easy Bleeding VTE Information - Inpt Only VTE Present on Admission: No VTE Mechan Device Prophylaxis: None VTE Pharm Prophylaxis ordered?: No Reason prophylaxis not ordered:: Treatment Not Indicated - Home Eliquis for atrial fibrillation continued Patient Problems: Active and Suspected Problems (Last Reviewed 07/13/20 @ 21:[address] Catalino Greenwood MD) Scrotal pain (Acute) - Physical Exam Vitals/I&O's: Vital Signs Temp Pulse Resp BP Pulse Ox 97.3 F L 82 16 115/79 93 07/13/20 18:45 07/13/20 20:38 07/13/20 20:38 07/13/20 20:38 07/13/20 20:38 Oxygen Delivery Method Room Air Weight: 68 kg Body Mass Index (BMI) 26.5 General: Alert, Oriented x3, Cooperative HEENT: Atraumatic, PERRLA, EOMI, Normocephalic Neck: Supple, No JVD, Negative Carotid Bruits Lungs: Clear to auscultation, Normal air movement, No rhonchi, No wheeze, No rales Cardiovascular: Regular rate, Normal S1, Normal S2, No murmurs Abdomen: Bowel Sounds Present, Soft, Non Tender, - - Tenderness of right scrotum Extremities: No edema, Capillary Refill Less than 3 Seconds Skin: No rashes, No breakdown Musculoskeletal: - - Mild point tenderness of right gluteus Neurological: Cranial nerves II-XII grossly intact Psych/Mental Status: Normal Affect, Appropriate Laboratory Results 07/13/20 19:15: WBC 9.0, RBC 4.01 L, Hgb 12.4 L, Hct 38.1 L, MCV 95.0 H, MCH 30.9, MCHC 32.5, RDW Std Deviation 48.3 H, RDW Coeff of Jaciel 13.9, Plt Count 200, MPV 9.8, Immature Gran % (Auto) 0.200, Neut % (Auto) 52.5, Lymph % (Auto) 25.5, Elliott % (Auto) 11.9 H, Eos % (Auto) 9.3 H, Baso % (Auto) 0.6, Absolute Neuts (auto) 4.7, Absolute Lymphs (auto) 2.29, Nucleated RBC % 0 07/13/20 19:15: Sodium 137, Potassium 4.0, Chloride 102, Carbon Dioxide 30.0, Anion Gap 5, BUN 10, Creatinine 0.91, Estim Creat Clear Calc 54.71, Est GFR (MDRD) Af Amer 104, Est GFR (MDRD) Non-Af 86, BUN/Creatinine Ratio 11.0, Glucose 81, Calcium 8.9 Assessment/Plan All Active Problems (Last Reviewed 07/13/20 @ 21:[address] Catalino Greenwood MD) Scrotal pain (Acute) Recurrent umbilical hernia (Resolved) The patient is a 79 year old M with a significant history of atrial fibrillation; rheumatoid arthritis; lumbar stenosis status post surgery who presents emergency department with 1 day history of excruciating right scrotal p ain that started while sleeping. Intractable scrotal pain. Hip/pelvic x-ray did not show any acute pathology. Abdomen and pelvis CT did not show any acute pathology. Nursing communication to elevate scrotum. Received morphine at the emergency department which temporarily help his pain. Morphine IV as needed ordered Escalate home dose of oxycodone. If pain persists consider discussing case with urology. Bowel protocol in place. As needed antiemetics ordered. Emergency Department doctor reported that Dr. Alfaro, spine surgeon will stop by to see patient. History of A. fib Eliquis continued Metoprolol continued BPH Proscar continued Tamsulosin continued Rheumatoid arthritis On methotrexate and Plaquenil. Folic acid continued. DVT Prophylaxis On Eliquis for A. fib; continued OBSV E&M: 94031 Initial observation care L2
[2020-07-13 21:46] VITALS: BP 118/79; PULSE 79; RESP 16; TEMP 36.8; O2SAT 94
[2020-07-13 22:26] VITALS: BMI 24.7
[2020-07-13 22:29] VITALS: BP 115/51; PULSE 78; RESP 18; TEMP 37.2; O2SAT 97
[2020-07-13] MEDS: oxyCODONE 5 MG Tablet 10 MG PO (22:44)
[2020-07-13 22:45] VITALS: BMI 24.8
[2020-07-13] MEDS: Morphine 2 MG/ML Syringe 4 MG IV (23:30)
[2020-07-13] MEDS: 0.9% Saline Lock 10 ML Syringe IV (23:30)
[2020-07-13] MEDS: APIXABAN 2.5 MG TABLET PO (23:31)
[2020-07-13 23:32] VITALS: PULSE 78
[2020-07-13] MEDS: traZODone 100 MG Tablet 150 MG PO (23:32)
[2020-07-13] MEDS: Mirtazapine 15 MG Tablet 7.5 MG PO (23:32)
[2020-07-13] MEDS: Metoprolol Tartrate 25 MG Tablet 12.5 MG PO (23:32)
[2020-07-14] VITALS (9 sets, daily range): BP systolic 96–122; BP diastolic 46–68; PULSE 75–90; RESP 16–18; TEMP 37–37.8; O2SAT 92–96
[2020-07-14] MEDS: Morphine 2 MG/ML Syringe 4 MG IV ×2 (02:29→23:59)
[2020-07-14] MEDS: 0.9% Saline Lock 10 ML Syringe IV ×2 (02:30→23:59)
[2020-07-14] MEDS: oxyCODONE 5 MG Tablet 10 MG PO ×5 (04:19→20:20)
[2020-07-14 05:50] LABS: Absolute Lymphocyte Count 1.37 X10^3/uL (0.83-4.51); Absolute Neutrophil Count 2.8 X10^3/uL (2.0-7.7); Basophil# 0.04 X10^3/uL; Basophil% 0.7 % (0-1); Eosinophil# 0.58 X10^3/uL; Eosinophils% 10.4 % (0-5); Hematocrit 32.4 % (40-54); Hemoglobin 10.3 g/dL (13.0-16.5); Lymphocyte # 1.37 X10^3/ul (4.0); Lymphocyte % 24.6 % (19-41); Mean Corp Hgb Conc 31.8 g/dL (32-36); Mean Corpuscular Hgb 30.7 pg (27.0-32.0); Mean Corpuscular Volume 96.7 fL (80-94); Mean Platelet Vol. 9.5 fl (6.2-12.0); Monocyte# 0.76 X10^3/uL; Monocyte% 13.6 % (0-10); NRBC Flagged by Analyzer 0 % (0-5); Neutrophil # 2.81 X10^3/uL (2.7-7.7); Neutrophil % 50.5 % (47-70); Platelet Count 157 K/mm3 (150-450); RBC Distribution Width CV 14.2 % (11.6-14.6); RBC Distribution Width SD 49.9 fl (35.1-43.9); Red Blood Count 3.35 M/mm3 (4.6-6.2); White Blood Count 5.6 K/mm3 (4.4-11.0)
[2020-07-14 06:23] LABS: Anion Gap 4 (5-15); BUN 7 mg/dL (7-18); Calcium,Total 8.3 mg/dL (8.5-10.1); Chloride 103 mmol/L (98-107); Creatinine, Serum 0.78 mg/dL (0.70-1.30); EST Glomerular Filtration Rate 102 mL/min (>60); Est Glom Filt Rate - Afr Amer 124 mL/min (>60); Estimated Creatinine Clearance 49.79 ml/min; Glucose 99 mg/dL (74-106); Potassium 3.8 mmol/L (3.5-5.1); Sodium Level 137 mmol/L (136-145)
--- NOTE | 2020-07-14 07:50 | PN_ITS ---
Patient Problems: Active and Suspected Problems (Last Reviewed 07/13/20 @ 21:[address] Catalino Greenwood MD) Scrotal pain (Acute) Reason for Visit: Follow-up on persistent right groin pain Subjective: Patient was seen and examined. He denied any new complaints. He still has persistent pain in the right groin, described more as in the junction of the scrotum and the pelvis. He was able to ambulate elevate for physical therapy. Had pain standing on his right leg. Denied any fever or chills. Objective: Physical exam: General: Alert, Oriented x3, Cooperative, not on oxygen HEENT: Atraumatic, PERRLA, EOMI, Normocephalic Neck: Supple, No JVD, Negative Carotid Bruits Lungs: Clear to auscultation, Normal air movement, No rhonchi, No wheeze, No rales Cardiovascular: Regular rate, Normal S1, Normal S2, No murmurs Abdomen: Bowel Sounds Present, Soft, Non Tender, - - Tenderness on the pubic inferior rami bone. Scrotal exam is normal Extremities: Edema, +3, bilateral, appears chronic Skin: No rashes Musculoskeletal: - - Mild point tenderness of right gluteus Neurological: Cranial nerves II-XII grossly intact Psych/Mental Status: Normal Affect, Appropriate Vitals/I&O's: Vital Signs Temp Pulse Resp BP Pulse Ox 98.6 F 75 16 104/46 L 94 07/14/20 04:30 07/14/20 04:30 07/14/20 04:30 07/14/20 04:30 07/14/20 04:30 Oxygen Delivery Method Room Air Weight: 63.4 kg Body Mass Index (BMI) 24.7 Intake and Output for Last 24 Hours 07/12/20 07/13/20 07/14/20 23:59 23:59 23:59 Output Total 600 / 600 Balance -600 / -600 Laboratory Results 07/13/20 19:15: WBC 9.0, RBC 4.01 L, Hgb 12.4 L, Hct 38.1 L, MCV 95.0 H, MCH 30.9, MCHC 32.5, RDW Std Deviation 48.3 H, RDW Coeff of Jaciel 13.9, Plt Count 200, MPV 9.8, Immature Gran % (Auto) 0.200, Neut % (Auto) 52.5, Lymph % (Auto) 25.5, Josephine % (Auto) 11.9 H, Eos % (Auto) 9.3 H, Baso % (Auto) 0.6, Absolute Neuts (auto) 4.7, Absolute Lymphs (auto) 2.29, Nucleated RBC % 0 07/13/20 19:15: Sodium 137, Potassium 4.0, Chloride 102, Carbon Dioxide 30.0, Anion Gap 5, BUN 10, Creatinine 0.91, Estim Creat Clear Calc 54.71, Est GFR (MDRD) Af Amer 104, Est GFR (MDRD) Non-Af 86, BUN/Creatinine Ratio 11.0, Glucose 81, Calcium 8.9 07/14/20 05:30: WBC 5.6, RBC 3.35 L, Hgb 10.3 L, Hct 32.4 L, MCV 96.7 H, MCH 30.7, MCHC 31.8 L, RDW Std Deviation 49.9 H, RDW Coeff of Jaciel 14.2, Plt Count 157, MPV 9.5, Immature Gran % (Auto) 0.200, Neut % (Auto) 50.5, Lymph % (Auto) 24.6, Josephine % (Auto) 13.6 H, Eos % (Auto) 10.4 H, Baso % (Auto) 0.7, Absolute Neuts (auto) 2.8, Absolute Lymphs (auto) 1.37, Nucleated RBC % 0 07/14/20 05:30: Sodium 137, Potassium 3.8, Chloride 103, Carbon Dioxide 30.0, Anion Gap 4 L, BUN 7, Creatinine 0.78, Estim Creat Clear Calc 49.79, Est GFR (MDRD) Af Amer 124, Est GFR (MDRD) Non-Af 102, BUN/Creatinine Ratio 9.0 L, Glucose 99, Calcium 8.3 L Current Medications Acetaminophen (Acetaminophen 500 Mg Tablet) 1,000 mg PO Q6H PRN PRN Reason: Pain Score 1-3 Apixaban (Apixaban 2.5 Mg Tablet) 2.5 mg PO BID [facility] Last Admin: 07/13/20 23:31 Dose: 2.5 mg Documented by: Ascorbic Acid (Ascorbic Acid 500 Mg Tablet) 500 mg PO DAILY [facility] Aspirin (Aspirin 81 Mg Tab.Chew) 81 mg PO DAILY@0800 [facility] Calcium/Vitamin D (Calcium Carb/Vitamin D 1 Tablet Tablet) 1 tablet PO DAILY@0800 [facility] Finasteride (Finasteride 5 Mg Tablet) 5 mg PO DAILY [facility] Folic Acid (Folic Acid 1 Mg Tablet) 2 mg PO DAILY@0800 [facility] Hydroxychloroquine Sulfate ([facility] 200 Mg Tablet) [facility] Methotrexate (Methotrexate 2.5 Mg Tablet) 20 mg PO JONES [facility] Metoprolol Tartrate (Metoprolol Tartrate 25 Mg Tablet) 12.5 mg PO BID [facility] Last Admin: 07/13/20 23:32 Dose: 12.5 mg Documented by: Mirtazapine (Mirtazapine 15 Mg Tablet) 7.5 mg PO QHS [facility] Last Admin: 07/13/20 23:32 Dose: 7.5 mg Documented by: Morphine Sulfate (Morphine 2 Mg/Ml Syringe) 4 mg IV Q3H PRN PRN PRN Reason: Pain Score 7-10/10 Last Admin: 07/14/20 02:29 Dose: 4 mg Documented by: Ondansetron HCl (Ondansetron 4 Mg/2 Ml Vial) 4 mg IV Q8H PRN PRN PRN Reason: NAUSEA/VOMITING Oxycodone HCl (Oxycodone 5 Mg Tablet) 10 mg PO Q4H PRN PRN PRN Reason: Pain Score 4-6/10 Last Admin: 07/14/20 04:19 Dose: 10 mg Documented by: Polyethylene Glycol (Polyethylene Glycol 3350 17 Gm Packet) 17 gm PO DAILY [facility] Senna/Docusate Sodium (Senna/Docusate Sodium 1 Tablet) 2 tablet PO BID PRN PRN PRN Reason: Constipation Senna/Docusate Sodium (Senna/Docusate Sodium 1 Tablet) 1 tablet PO BID [facility] Last Admin: 07/13/20 23:31 Dose: Not Given Documented by: Sodium Chloride (0.9% Saline Lock 10 Ml Syringe) 10 - 40 ml IV UD PRN PRN Reason: SALINE FLUSH Last Admin: 07/14/20 02:30 Dose: 10 ml Documented by: Tamsulosin HCl (Tamsulosin Hcl 0.4 Mg Capsule) 0.4 mg PO DAILY@1730 [facility] Trazodone HCl (Trazodone 100 Mg Tablet) 150 mg PO QHS [facility] Last Admin: 07/13/20 23:32 Dose: 150 mg Documented by: STROKE Vital Signs/Narrative: Vital Signs Temp Pulse Resp BP Pulse Ox 07/14/20 04:30 98.6 F 75 16 104/46 L 94 Medical Necessity - Tobacco Use Smoking Status: Former smoker Assessment/Plan All Active Problems (Last Reviewed 07/13/20 @ 21:[address] Catalino Greenwood MD) Scrotal pain (Acute) Recurrent umbilical hernia (Resolved) 1. Acute intractable right groin pain, unclear etiology, X-ray of the pelvis was negative for acute fracture. CT of the abdomen and pelvis was also unremarkable. Continue on Tylenol and oxycodone as well as morphine as needed PT and OT evaluated and recommended discharge with therapy 2. Chronic atrial fibrillation, continue metoprolol and Eliquis 3. Rheumatoid arthritis, on methotrexate, Plaquenil, and folic acid 4. BPH, continue on Flomax, Proscar 5. DVT prophylaxis?on Eliquis Inpatient E&M: 35699 Subs Hosp L2
[2020-07-14] MEDS: Folic Acid 1 MG Tablet 2 MG PO (08:29)
[2020-07-14] MEDS: Calcium Carb/Vitamin D 1 TABLET Tablet PO (08:29)
[2020-07-14] MEDS: Hydroxychloroquine 200 MG Tablet PO ×2 (08:29→16:13)
[2020-07-14] MEDS: Aspirin 81 MG TAB.CHEW PO (08:29)
--- NOTE | 2020-07-14 10:36 | CASEMGMT ---
Social Work Note Per outpatient psychiatrist questions, pt has completed HCPOA and LW and provided copies to [facility]. SW reviewed chart, no copies found on pt's chart. SW in to speak with pt. KAITY introduced self and role at [facility]. Pt is alert and orientated. Pt states he has completed HCPOA and LW and his research attorney has the paperwork. KAITY informed pt that documents are not on file at [facility]. Pt states he has copies at home, is able to provide copies next time. Pt then discussed how well he was doing at home. Pt states he had back surgery in April, went to TCU and was discharged home and had PT/OT but that has been discontinued as pt was doing so well. Pt states his daughter Melanie has been helping out, driving, bringing medications, etc as pt is not allowed to drive still. Pt states he is supposed to see Dr. Alfaro this afternoon and then follow up with Dr. Alfaro again as an outpatient. Pt states his plan is to return home, not sure if she will need HHC again or not. KAITY informed pt that KAITY and RN CM will follow along and are available if needed. Pt states understanding, denied additional needs or concerns at this time. Joslyn Barton MARINE TECHNICIAN, DAY CARE DIRECTOR
[2020-07-14] MEDS: APIXABAN 2.5 MG TABLET PO ×2 (10:52→21:31)
[2020-07-14] MEDS: Senna/Docusate Sodium 1 Tablet PO ×2 (10:54→21:33)
[2020-07-14] MEDS: Finasteride 5 MG Tablet PO (10:54)
[2020-07-14] MEDS: Ascorbic Acid 500 MG Tablet PO (10:55)
--- NOTE | 2020-07-14 12:15 | CASEMGMT ---
RN CM in to discuss discharge needs. Patient is interested in HHC. Patient was provided a list of C providers including quality and resource use data and consistent with the patient?s preferred geographic region, medical needs, and insurance network. The patient?s preferred provider is [facility]. RN CM to send referral to [facility]. CM will continue to follow this patient and plan for a safe discharge.
[2020-07-14] MEDS: Acetaminophen 500 MG Tablet 1000 MG PO (14:24)
--- NOTE | 2020-07-14 14:40 | NURSING ---
CM Note RN CM in to discuss HERNDON form with patient. RN CM explained HERNDON form, patient voiced understanding. Patient signed HERNDON form and filed in chart. Patient provided with copy of signed HERNDON form. Patient had no further questions or concerns at this time.
--- NOTE | 2020-07-14 14:46 | CASEMGMT ---
ELROY COLLAZO made referral to [facility] patient preferred [facility]. [facility] is able to accept the patient. ELROY COLLAZO updated that patient regarding acceptance. CM will continue to follow this patient and plan for a safe discharge.
--- NOTE | 2020-07-14 17:30 | RAD_ITS ---
STUDY: X-RAY CHEST REASON FOR EXAM: Male, 79 years old. FEVER TECHNIQUE: Single AP portable view of the chest. COMPARISON: None. FINDINGS: There is hyperinflation of the lungs consistent with chronic obstructive lung disease (COPD). No visualized consolidation. Linear scarring is seen in the left lower lobe. There is no demonstrated pleural abnormality. Normal size heart. Normal mediastinum and conrad. Normal visualized pulmonary arteries. Normal visualized aortic arch and descending thoracic aorta. There is demineralization of the osseous structures. Several suture anchors are present in the right humeral head. There is no demonstrated abnormality of the visualized soft tissue structures of the upper abdomen. RAD/Chest 1 View (Portable) IMPRESSION: COPD Electronically Signed: Phong Ho MD at 18:36 EST , Service support ,
[2020-07-14 18:01] LABS: Color, Urine Yellow (Yellow); Glucose, Dipstick Normal (Normal); Ketone-Dipstick Negative (Negative); Leukocyte Esterase-Dipstick Negative /ul (Negative); Nitrite-Dipstick Negative (Negative); Occult Blood-Urine Negative /ul (Negative); Protein-Dipstick Negative (Negative); Urine Bilirubin Dipstick Negative (Negative); Urine Clarity Clear (Clear); Urine Urobilinogen Normal (Normal); Urine pH 6.5 (5.0 - 8.0)
[2020-07-14] MEDS: Tamsulosin HCl 0.4 MG Capsule PO (18:19)
[2020-07-14] MEDS: traZODone 100 MG Tablet 150 MG PO (21:30)
[2020-07-14] MEDS: Metoprolol Tartrate 25 MG Tablet 12.5 MG PO (21:31)
[2020-07-14] MEDS: Mirtazapine 15 MG Tablet 7.5 MG PO (21:32)
[2020-07-15] VITALS (10 sets, daily range): BP systolic 108–133; BP diastolic 58–73; PULSE 73–95; RESP 16–18; TEMP 36.7–37.7; O2SAT 92–97
[2020-07-15] MEDS: oxyCODONE 5 MG Tablet 10 MG PO ×4 (02:06→17:56)
[2020-07-15 07:29] LABS: Absolute Lymphocyte Count 1.31 X10^3/uL (0.83-4.51); Absolute Neutrophil Count 3.9 X10^3/uL (2.0-7.7); Basophil# 0.05 X10^3/uL; Basophil% 0.8 % (0-1); Eosinophils% 6.2 % (0-5); Hematocrit 36.6 % (40-54); Hemoglobin 11.7 g/dL (13.0-16.5); Lymphocyte # 1.31 X10^3/ul (4.0); Lymphocyte % 20.2 % (19-41); Mean Corpuscular Hgb 30.6 pg (27.0-32.0); Mean Corpuscular Volume 95.8 fL (80-94); Monocyte# 0.86 X10^3/uL; Monocyte% 13.3 % (0-10); NRBC Flagged by Analyzer 0 % (0-5); Neutrophil # 3.86 X10^3/uL (2.7-7.7); Neutrophil % 59.3 % (47-70); Platelet Count 151 K/mm3 (150-450); RBC Distribution Width SD 49.1 fl (35.1-43.9); Red Blood Count 3.82 M/mm3 (4.6-6.2); White Blood Count 6.5 K/mm3 (4.4-11.0)
--- NOTE | 2020-07-15 07:39 | RAD_ITS ---
STUDY: X-RAY - LUMBAR SPINE REASON FOR EXAM: Male, 79 years old. INCREASING LOWER BACK PAIN, BENDING VIEWS INCLUDED TECHNIQUE: 4 view(s) of the lumbar spine were obtained including flexion and extension views. COMPARISON: Comparison is made with prior examination dated 05/07/2020. FINDINGS: Normal lumbar lordosis. There is a levoscoliosis of the lumbar spine. Grade 1 anterior listhesis of L4 on L5. The listhesis increases by 1 mm on flexion and extension views. There is multilevel endplate spondylosis of the lumbar vertebrae. Status post laminectomy at the L2-L3, L3-L4 and L4-L5 levels. There is multi-level degenerative disc disease with multi-level disc space narrowing. The soft tissue structures are unremarkable. RAD/L/S Spine Min 4 Views IMPRESSION: Status post multilevel laminectomy and disc space narrowing. Anterior listhesis of L4 on L5 measuring 9 mm. Electronically Signed: Nicko Yoon MD at 11:08 EST , Service support ,
[2020-07-15 07:56] LABS: ALB/GLOB Ratio 0.9 RATIO (0.9-2.4); AST(SGOT) 16 U/L (15-37); Alanine Aminotransfer ALT/SGPT 16 U/L (16-61); Albumin, Serum 3.1 g/dL (3.2-5.0); Alkaline Phosphatase 67 U/L (45-117); Anion Gap 3 (5-15); BUN 12 mg/dL (7-18); BUN/Creat Ratio 15.4 RATIO (10-20); Calcium,Total 8.7 mg/dL (8.5-10.1); Chloride 104 mmol/L (98-107); Creatinine, Serum 0.78 mg/dL (0.70-1.30); EST Glomerular Filtration Rate 102 mL/min (>60); Est Glom Filt Rate - Afr Amer 124 mL/min (>60); Estimated Creatinine Clearance 49.79 ml/min; Globulin 3.4 g/dL (2.2-4.2); Glucose 107 mg/dL (74-106); Protein, Total 6.5 g/dL (6.4-8.2); Sodium Level 137 mmol/L (136-145)
[2020-07-15] MEDS: Finasteride 5 MG Tablet PO (08:57)
[2020-07-15] MEDS: Calcium Carb/Vitamin D 1 TABLET Tablet PO (08:57)
[2020-07-15] MEDS: Senna/Docusate Sodium 1 Tablet PO ×2 (08:57→22:38)
[2020-07-15] MEDS: Folic Acid 1 MG Tablet 2 MG PO (08:57)
[2020-07-15] MEDS: Ascorbic Acid 500 MG Tablet PO (08:57)
[2020-07-15] MEDS: Hydroxychloroquine 200 MG Tablet PO ×2 (08:58→17:54)
[2020-07-15] MEDS: Metoprolol Tartrate 25 MG Tablet 12.5 MG PO ×2 (08:58→22:38)
[2020-07-15] MEDS: APIXABAN 2.5 MG TABLET PO ×2 (08:59→22:38)
[2020-07-15] MEDS: Aspirin 81 MG TAB.CHEW PO (08:59)
[2020-07-15] MEDS: Cyanocobalamin 500 MCG Tablet PO (09:02)
--- NOTE | 2020-07-15 09:02 | CONS.ORTHO ---
Problem List (1) Right groin pain Status: Acute - Consult Date of Consult: 07/15/20 Patient examined today lying supine in bed by myself as well as Dr. Chvaes. Patient was resting comfortably upon entering the room. He did show evidence of discomfort with movement in the bed. Inspection of the right lower extremity shows some evidence of lower leg edema larger than the left which has been present on a chronic basis. There is no evident skin changes including ecchymosis/bruising, erythema, or other discolorations. Patient does appear to have symmetric sensation to light touch throughout the extremity compared to the left side. Compartments are soft throughout the right leg and he has no calf tenderness and a negative Homans. Patient does have tenderness on palpation of the anterior and medial proximal thigh. His pain does vary in intensity and although not extremely localized can be reproduced on palpation in this thigh/groin region. Patient does also have evident weakness with both adduction and hip flexion compared to the left side. These active movements do reproduce pain with or without resistance. Patient does describe some throbbing sensation/pain throughout the lower extremity that at times can be in the ball of the foot. Again the palpation of the anterior thigh does not reproduce radicular pains but stays in the anterior/medial thigh. Patient does not have reproducible tenderness on palpation of the scrotum or the testicles. Patient has at this time had radiographs of the hip as well as a CT scan of the abdomen and pelvis which were unremarkable for acute pathology. Radiographs of the lumbar spine also were taken today which do not show any evident major changes compared to images back in March. At this time with intractable pain in his current living situation it would be warranted to proceed with MRI of the pelvis to evaluate tendon/muscular structures for possible tear which occurred during him rolling over in bed. This would also rule out any other bony pathology as well. MRI would also allow for a better rehabilitation plan either in hospital or with home health moving forward. - Reason for Consult Patient seen at request of hospitalist for right groin pain sustained while he was rolling over in bed approximately 3 days ago. Patient heard and felt a snap and had immediate pain following. Pains have been persisting in the anterior and medial thigh.
--- NOTE | 2020-07-15 09:14 | MRI_ITS ---
STUDY: MR PELVIS WITHOUT CONTRAST REASON FOR EXAM: Male, 79 years old. Pain in the right groin and thigh. Rule out muscular or tendinous tear. TECHNIQUE: Standardized fat and water weighted pulse sequences were obtained in all 3 orthogonal planes. COMPARISON: None. FINDINGS: Normal urinary bladder. The prostate appears normal in size. There is a TURP defect centrally within the prostate. Normal visualized small intestine. There is sigmoid diverticulosis without acute inflammatory change. There is no pelvic fluid. There is no pelvic mass lesion or lymphadenopathy. Normal visualized pelvic arteries. There are degenerative changes of the lumbar spine. Normal abdominal wall. There is a right hip joint effusion. There is stranding in the surrounding gluteal musculature. Fluid is also seen between the vastus lateralis muscle and the overlying tensor fasciae latae and sartorius muscle. There is fluid density in the adductus rachell musculature suggesting strain. Small left joint effusion. MRI/Pelvis (Routine) IMPRESSION: 1. Moderate right hip joint joint effusion is fluid density in the gluteal muscles and adductor rachell muscle musculature. Fluid is also seen anteriorly between the car quadricep musculature. Electronically Signed: Sridhar Hart DO at 21:00 EST Tel [phone], Service support ,
[2020-07-15] MEDS: Morphine 2 MG/ML Syringe 4 MG IV ×3 (10:37→22:35)
[2020-07-15] MEDS: 0.9% Saline Lock 10 ML Syringe IV ×3 (10:37→22:37)
--- NOTE | 2020-07-15 11:39 | PCM.PN.HOSP ---
Patient Problems: Active and Suspected Problems (Last Reviewed 07/13/20 @ 21:[address] Catalino Greenwood MD) Scrotal pain (Acute) Right groin pain (Acute) Reason for Visit: Follow-up on persistent right groin pain Subjective: Patient was seen and examined. Still persistent pain in the right groin. He has been reliant on narcotic medications overnight. He had low-grade fevers overnight also. Orthopedic consulted?appreciate recommendations; MRI of the pelvis is pending Objective: Physical exam: General: Alert, Oriented x3, Cooperative, not on oxygen HEENT: Atraumatic, PERRLA, EOMI, Normocephalic Neck: Supple, No JVD, Negative Carotid Bruits Lungs: Clear to auscultation, Normal air movement, No rhonchi, No wheeze, No rales Cardiovascular: Regular rate, Normal S1, Normal S2, No murmurs Abdomen: Bowel Sounds Present, Soft, Non Tender, - - Tenderness on the pubic inferior rami bone. Scrotal exam is normal Extremities: Edema, +1, bilateral, appears chronic Skin: No rashes Musculoskeletal: - - Mild point tenderness of right gluteus Neurological: Cranial nerves II-XII grossly intact Psych/Mental Status: Normal Affect, Appropriate Vitals/I&O's: Vital Signs Temp Pulse Resp BP Pulse Ox 98.9 F 83 18 133/72 H 92 07/15/20 07:51 07/15/20 08:58 07/15/20 07:51 07/15/20 08:58 07/15/20 08:02 Oxygen Delivery Method Room Air Weight: 63.4 kg Body Mass Index (BMI) 24.7 Intake and Output for Last 24 Hours 07/13/20 07/14/20 07/15/20 23:59 23:59 23:59 Intake Total 1100 / 1580 530 / 530 Output Total 1325 / 1925 900 / 900 Balance -225 / -345 -370 / -370 Laboratory Results 07/14/20 17:45: Urine Color Yellow, Urine Clarity Clear, Urine pH 6.5, Ur Specific [place] 1.010, Urine Protein Negative, Urine Glucose (UA) Normal, Urine Ketones Negative, Urine Occult Blood Negative, Urine Nitrite Negative, Urine Bilirubin Negative, Urine Urobilinogen Normal, Ur Leukocyte Esterase Negative 07/15/20 07:20: WBC 6.5, RBC 3.82 L, Hgb 11.7 L, Hct 36.6 L, MCV 95.8 H, MCH 30.6, MCHC 32.0, RDW Std Deviation 49.1 H, RDW Coeff of Jaciel 14.0, Plt Count 151, MPV 9.0, Immature Gran % (Auto) 0.200, Neut % (Auto) 59.3, Lymph % (Auto) 20.2, [place] % (Auto) 13.3 H, Eos % (Auto) 6.2 H, Baso % (Auto) 0.8, Absolute Neuts (auto) 3.9, Absolute Lymphs (auto) 1.31, Nucleated RBC % 0 07/15/20 07:20: Sodium 137, Potassium 4.0, Chloride 104, Carbon Dioxide 30.0, Anion Gap 3 L, BUN 12, Creatinine 0.78, Estim Creat Clear Calc 49.79, Est GFR (MDRD) Af Amer 124, Est GFR (MDRD) Non-Af 102, BUN/Creatinine Ratio 15.4, Glucose 107 H, Calcium 8.7, Total Bilirubin 0.60, AST 16, ALT 16, Alkaline Phosphatase 67, Total Protein 6.5, Albumin 3.1 L, Globulin 3.4, Albumin/Globulin Ratio 0.9 Current Medications Acetaminophen (Acetaminophen 500 Mg Tablet) 1,000 mg PO Q8H PRN PRN PRN Reason: Pain Score 1-3 Last Admin: 07/14/20 14:24 Dose: 1,000 mg Documented by: Apixaban (Apixaban 2.5 Mg Tablet) 2.5 mg PO BID [facility] Last Admin: 07/15/20 08:59 Dose: 2.5 mg Documented by: Ascorbic Acid (Ascorbic Acid 500 Mg Tablet) 500 mg PO DAILY [facility] Last Admin: 07/15/20 08:57 Dose: 500 mg Documented by: Aspirin (Aspirin 81 Mg Tab.Chew) 81 mg PO DAILY@0800 [facility] Last Admin: 07/15/20 08:59 Dose: 81 mg Documented by: Calcium/Vitamin D (Calcium Carb/Vitamin D 1 Tablet Tablet) 1 tablet PO DAILY@0800 [facility] Last Admin: 07/15/20 08:57 Dose: 1 tablet Documented by: Cyanocobalamin (Cyanocobalamin 500 Mcg Tablet) 500 mcg PO DAILY [facility] Last Admin: 07/15/20 09:02 Dose: 500 mcg Documented by: Finasteride (Finasteride 5 Mg Tablet) 5 mg PO DAILY [facility] Last Admin: 07/15/20 08:57 Dose: 5 mg Documented by: Folic Acid (Folic Acid 1 Mg Tablet) 2 mg PO DAILY@0800 [facility] Last Admin: 07/15/20 08:57 Dose: 2 mg Documented by: Hydroxychloroquine Sulfate ([facility] 200 Mg [facility]t) [facility] Last Admin: 07/15/20 08:58 Dose: 200 mg Documented by: Methotrexate (Methotrexate 2.5 Mg Tablet) 20 mg PO [facility] Metoprolol Tartrate (Metoprolol Tartrate 25 Mg Tablet) 12.5 mg PO BID [facility] Last Admin: 07/15/20 08:58 Dose: 12.5 mg Documented by: Mirtazapine (Mirtazapine 15 Mg Tablet) 7.5 mg PO QHS [facility] Last Admin: 07/14/20 21:32 Dose: 7.5 mg Documented by: Morphine Sulfate (Morphine 2 Mg/Ml Syringe) 4 mg IV Q3H PRN PRN PRN Reason: Pain Score 7-10/10 Last Admin: 07/15/20 10:37 Dose: 4 mg Documented by: Ondansetron HCl (Ondansetron 4 Mg/2 Ml Vial) 4 mg IV Q8H PRN PRN PRN Reason: NAUSEA/VOMITING Oxycodone HCl (Oxycodone 5 Mg Tablet) 10 mg PO Q4H PRN PRN PRN Reason: Pain Score 4-6/10 Last Admin: 07/15/20 07:17 Dose: 10 mg Documented by: Polyethylene Glycol (Polyethylene Glycol 3350 17 Gm Packet) 17 gm PO DAILY [facility] Last Admin: 07/14/20 10:54 Dose: Not Given Documented by: Senna/Docusate Sodium (Senna/Docusate Sodium 1 Tablet) 2 tablet PO BID PRN PRN PRN Reason: Constipation Senna/Docusate Sodium (Senna/Docusate Sodium 1 Tablet) 1 tablet PO BID [facility] Last Admin: 07/15/20 08:57 Dose: 1 tablet Documented by: Sodium Chloride (0.9% Saline Lock 10 Ml Syringe) 10 - 40 ml IV UD PRN PRN Reason: SALINE FLUSH Last Admin: 07/15/20 10:37 Dose: 10 ml Documented by: Tamsulosin HCl (Tamsulosin Hcl 0.4 Mg Capsule) 0.4 mg PO DAILY@1730 [facility] Last Admin: 07/14/20 18:19 Dose: 0.4 mg Documented by: Trazodone HCl (Trazodone 100 Mg Tablet) 150 mg PO QHS [facility] Last Admin: 07/14/20 21:30 Dose: 150 mg Documented by: STROKE Vital Signs/Narrative: Vital Signs Temp Pulse Resp BP Pulse Ox 07/15/20 08:58 83 133/72 H 07/15/20 08:02 92 07/15/20 07:51 98.9 F 83 18 133/72 H 93 Medical Necessity - Tobacco Use Smoking Status: Former smoker Assessment/Plan All Active Problems (Last Reviewed 07/13/20 @ 21:[address] Catalino Greenwood MD) Scrotal pain (Acute) Right groin pain (Acute) Recurrent umbilical hernia (Resolved) 1. Acute intractable right groin pain, unclear etiology, X-ray of the pelvis was negative for acute fracture. CT of the abdomen and pelvis was also unremarkable. Lumbar spine x-ray on 07/15/20 shows status post multilevel laminectomy with disc space narrowing, anterior listhesis of L4 on L5 Continue on Tylenol and oxycodone as well as morphine as needed Continue on PT and OT, follow-up on MRI of the pelvis 2. Chronic atrial fibrillation, continue metoprolol and Eliquis 3. Rheumatoid arthritis, on methotrexate, Plaquenil, and folic acid 4. BPH, continue on Flomax, Proscar 5. DVT prophylaxis?on Eliquis Inpatient E&M: 99773 [facility] Hosp L3
--- NOTE | 2020-07-15 14:45 | CASEMGMT ---
ELROY COLLAZO updated by therapy that patient will need SNF at discharge. ELROY CM in to discuss discharge needs with patient. Patient is agreeable to SNF at discharge. Patient was provided a list of SNF providers including quality and resource use data and consistent with the patient?s preferred geographic region, medical needs, and insurance network. Patient to review list and give preferences. ELROY COLLAZO updated KAITY Izquierdo regarding SNF referral.
--- NOTE | 2020-07-15 16:15 | CASEMGMT ---
Social Work Met with patient in room in regards to SNF referral. Introduced self and social service liaison role. Patient has already been provided with list of in-network facilities by RN VALE. Patient reports that first choice is TCU. This social service liaison communicated to patient that earlier today TCU did not have any openings and do not anticipate that TCU would have any openings but this social service liaison is able to call and check again. Patient becoming tearful when this social service liaison inquired about other SNF options or second choice for patient. Active support and listening provided. Patient not wanting to discuss choices any further currently. Plan is for social service liaison to follow up with patient tomorrow. Patient also to have MRI completed. Social Work to continue to follow. Jamal Izquierdo MSW, MAGGIES
[2020-07-15] MEDS: Tamsulosin HCl 0.4 MG Capsule PO (17:54)
[2020-07-15] MEDS: Acetaminophen 500 MG Tablet 1000 MG PO (17:56)
[2020-07-15] MEDS: Mirtazapine 15 MG Tablet 7.5 MG PO (22:39)
[2020-07-16] VITALS (9 sets, daily range): BP systolic 87–130; BP diastolic 47–63; PULSE 76–100; RESP 16–20; TEMP 37.1–38.2; O2SAT 94–96
[2020-07-16] MEDS: traZODone 100 MG Tablet 150 MG PO (00:02)
[2020-07-16] MEDS: oxyCODONE 5 MG Tablet 10 MG PO ×4 (03:32→20:14)
[2020-07-16] MEDS: Hydroxychloroquine 200 MG Tablet PO ×2 (08:50→17:28)
[2020-07-16] MEDS: Folic Acid 1 MG Tablet 2 MG PO (08:50)
[2020-07-16] MEDS: Aspirin 81 MG TAB.CHEW PO (08:50)
[2020-07-16] MEDS: Calcium Carb/Vitamin D 1 TABLET Tablet PO (08:50)
[2020-07-16] MEDS: Metoprolol Tartrate 25 MG Tablet 12.5 MG PO ×2 (08:54→21:22)
[2020-07-16] MEDS: Senna/Docusate Sodium 1 Tablet PO ×2 (08:54→21:22)
[2020-07-16] MEDS: Ascorbic Acid 500 MG Tablet PO (08:55)
[2020-07-16] MEDS: Cyanocobalamin 500 MCG Tablet PO (08:55)
[2020-07-16] MEDS: APIXABAN 2.5 MG TABLET PO (08:55)
[2020-07-16] MEDS: Polyethylene Glycol 3350 17 GM PACKET PO (08:56)
[2020-07-16] MEDS: Finasteride 5 MG Tablet PO (08:56)
[2020-07-16] MEDS: Morphine 2 MG/ML Syringe 4 MG IV ×3 (09:04→23:08)
[2020-07-16] MEDS: 0.9% Saline Lock 10 ML Syringe IV ×3 (09:05→23:04)
[2020-07-16 09:55] LABS: International Normalized Ratio 1.2; Prothrombin Time (Protime)PT. 14.5 SECONDS (11.7-14.9)
[2020-07-16 09:56] LABS: Partial Thromboplast Time 36.3 Seconds (24.1-36.2)
[2020-07-16] MEDS: Acetaminophen 500 MG Tablet 1000 MG PO ×2 (10:03→20:09)
--- NOTE | 2020-07-16 10:11 | CASEMGMT ---
Addendum entered by Joslyn Barton 07/16/20 11:39: KAITY received call from [facility] with TCU stating pt was approved, can admit to TCU. Physician had mentioned that pt is ready for discharge tomorrow. SW updated [facility]. Plan: TCU tomorrow Addendum entered by Joslyn Barton 07/16/20 11:29: Pt's daughter Melanie is present at [facility], requests to speak with KAITY. KAITY met with pt Melanie and introduced self and role at [facility]. KAITY updated Melanie on plan for pt to admit to TCU pending pre-cert. Melanie asked if this worker would speak with pt regarding HCPOA and LW. KAITY informed Melanie that pt had told this worker that he had already completed documents. Melanie states she thinks pt has completed but didn't know if pt could update them. KAITY informed Melanie that this worker will speak with pt, see if he wants to update Advanced Directives. Melanie states understanding, denied additional needs or concerns. KAITY in to speak with pt and asked pt if he wanted to update his advanced directives. Pt denied, stating there is nothing to update and Melanie is his POA. KAITY informed pt that per TCU pt is getting Golimumab infusions every 2 months but pt will not be able to get infusions while at [facility]. Pt states understanding. Original Note: Social Work Note KAITY received call from [facility] in TCU stating a bed has opened up for pt and is able to accept pt pending pre-cert. [facility] to submit for pre-cert. KAITY in to speak with pt. KAITY updated pt that TCU had a bed open up, will submit for pre-cert. The patient?s preferred provider is [facility] TCU. Plan: TCU pending pre-cert Joslyn Barton ENVIRONMENTAL ADVISOR, AIRPLANE TESTER
--- NOTE | 2020-07-16 13:40 | NURSING ---
Primary RN made aware of low BP and elevated temp. Primary RN instructs this SN to obtain second BP. Same done. BP rechecked in left arm. . SN informed primary RN of second BP reading. Primary RN okay with same.
--- NOTE | 2020-07-16 16:01 | NURSING ---
Student documentation reviewed.
--- NOTE | 2020-07-16 17:12 | PCM.PN.HOSP ---
Patient Problems: Active and Suspected Problems (Last Reviewed 07/13/20 @ 21:[address] Catalino Greenwood MD) Scrotal pain (Acute) Right groin pain (Acute) Reason for Visit: Follow-up on persistent right groin pain Subjective: Patient was seen and examined. Complains of severe pain in the right hip. MRI of the pelvis showed moderate right hip joint effusion, with fluid density in the gluteal muscles and abductor rachell muscles musculature. Discussed with Dr. Chaves on phone; recommended IR drainage of effusion. Discussed with Dr. Yoon; patient to be kept off his Eliquis 2 doses. Joint aspiration planned for tomorrow. Objective: Physical exam: General: Alert, Oriented x3, Cooperative, not on oxygen HEENT: Atraumatic, PERRLA, EOMI, Normocephalic Neck: Supple, No JVD, Negative Carotid Bruits Lungs: Clear to auscultation, Normal air movement, No rhonchi, No wheeze, No rales Cardiovascular: Regular rate, Normal S1, Normal S2, No murmurs Abdomen: Bowel Sounds Present, Soft, Non Tender, - - Tenderness on the pubic inferior rami bone. Scrotal exam is normal Extremities: Edema, +1, bilateral, appears chronic Skin: No rashes Musculoskeletal: - - Mild point tenderness of right gluteus Neurological: Cranial nerves II-XII grossly intact Psych/Mental Status: Normal Affect, Appropriate Vitals/I&O's: Vital Signs Temp Pulse Resp BP Pulse Ox 99.7 F H 83 16 110/61 96 07/16/20 16:22 07/16/20 16:22 07/16/20 16:22 07/16/20 16:22 07/16/20 16:22 Oxygen Delivery Method Room Air Weight: 63.4 kg Body Mass Index (BMI) 24.7 Intake and Output for Last 24 Hours 07/14/20 07/15/20 07/16/20 23:59 23:59 23:59 Intake Total 1100 / 1580 1930 / 2130 1500 / 1500 Output Total 1325 / 1925 2300 / 3000 1450 / 1450 Balance -225 / -345 -370 / -870 50 / 50 Microbiology Past 72 Hours 07/16/20 15:35 Mucosa - Nose SARS-CoV-2 Antigen (Rapid) - Final 07/14/20 17:45 Urine, Random Urine Culture - Preliminary Culture exhibits no growth. Laboratory Results 07/16/20 09:15: PT 14.5, INR 1.2, APTT 36.3 H Current Medications Acetaminophen (Acetaminophen 500 Mg Tablet) 1,000 mg PO Q8H PRN PRN PRN Reason: Pain Score 1-3 Last Admin: 07/16/20 10:03 Dose: 1,000 mg Documented by: Ascorbic Acid (Ascorbic Acid 500 Mg Tablet) 500 mg PO DAILY [facility] Last Admin: 07/16/20 08:55 Dose: 500 mg Documented by: Aspirin (Aspirin 81 Mg Tab.Chew) 81 mg PO DAILY@0800 [facility] Last Admin: 07/16/20 08:50 Dose: 81 mg Documented by: Calcium/Vitamin D (Calcium Carb/Vitamin D 1 Tablet Tablet) 1 tablet PO DAILY@0800 [facility] Last Admin: 07/16/20 08:50 Dose: 1 tablet Documented by: Cyanocobalamin (Cyanocobalamin 500 Mcg Tablet) 500 mcg PO DAILY [facility] Last Admin: 07/16/20 08:55 Dose: 500 mcg Documented by: Finasteride (Finasteride 5 Mg Tablet) 5 mg PO DAILY [facility] Last Admin: 07/16/20 08:56 Dose: 5 mg Documented by: Folic Acid (Folic Acid 1 Mg Tablet) 2 mg PO DAILY@0800 [facility] Last Admin: 07/16/20 08:50 Dose: 2 mg Documented by: Hydroxychloroquine Sulfate ([facility] 200 Mg Tablet) [facility] Last Admin: 07/16/20 08:50 Dose: 200 mg Documented by: Methotrexate (Methotrexate 2.5 Mg Tablet) 20 mg PO [facility] Metoprolol Tartrate (Metoprolol Tartrate 25 Mg Tablet) 12.5 mg PO BID [facility] Last Admin: 07/16/20 08:54 Dose: 12.5 mg Documented by: Mirtazapine (Mirtazapine 15 Mg Tablet) 7.5 mg PO QHS [facility] Last Admin: 07/15/20 22:39 Dose: 7.5 mg Documented by: Morphine Sulfate (Morphine 2 Mg/Ml Syringe) 4 mg IV Q3H PRN PRN PRN Reason: Pain Score 7-10/10 Last Admin: 07/16/20 09:04 Dose: 4 mg Documented by: Ondansetron HCl (Ondansetron 4 Mg/2 Ml Vial) 4 mg IV Q8H PRN PRN PRN Reason: NAUSEA/VOMITING Oxycodone HCl (Oxycodone 5 Mg Tablet) 10 mg PO Q4H PRN PRN PRN Reason: Pain Score 4-6/10 Last Admin: 07/16/20 15:41 Dose: 10 mg Documented by: Polyethylene Glycol (Polyethylene Glycol 3350 17 Gm Packet) 17 gm PO DAILY [facility] Last Admin: 07/16/20 08:56 Dose: 17 gm Documented by: Senna/Docusate Sodium (Senna/Docusate Sodium 1 Tablet) 2 tablet PO BID PRN PRN PRN Reason: Constipation Senna/Docusate Sodium (Senna/Docusate Sodium 1 Tablet) 1 tablet PO BID [facility] Last Admin: 07/16/20 08:54 Dose: 1 tablet Documented by: Sodium Chloride (0.9% Saline Lock 10 Ml Syringe) 10 - 40 ml IV UD PRN PRN Reason: SALINE FLUSH Last Admin: 07/16/20 09:05 Dose: 10 ml Documented by: Tamsulosin HCl (Tamsulosin Hcl 0.4 Mg Capsule) 0.4 mg PO DAILY@1730 [facility] Last Admin: 07/15/20 17:54 Dose: 0.4 mg Documented by: Trazodone HCl (Trazodone 100 Mg Tablet) 150 mg PO QHS [facility] Last Admin: 07/16/20 00:02 Dose: 150 mg Documented by: STROKE Vital Signs/Narrative: Vital Signs Temp Pulse Resp BP BP Pulse Ox 07/16/20 16:22 99.7 F H 83 16 110/61 96 07/16/20 13:40 96/52 L 07/16/20 13:39 100.8 F H 76 18 87/47 L 94 Medical Necessity - Tobacco Use Smoking Status: Former smoker Assessment/Plan All Active Problems (Last Reviewed 07/13/20 @ 21:[address] Catalino Greenwood MD) Scrotal pain (Acute) Right groin pain (Acute) Recurrent umbilical hernia (Resolved) 1. Acute intractable right groin pain secondary to moderate right hip joint effusion/fluid in the surrounding hip muscles Patient will be going for IR hip joint drainage. Eliquis and aspirin on hold. X-ray of the pelvis was negative for acute fracture. CT of the abdomen and pelvis was also unremarkable. Lumbar spine x-ray on 07/15/20 shows status post multilevel laminectomy with disc space narrowing, anterior listhesis of L4 on L5 Continue on Tylenol and oxycodone as well as morphine as needed 2. Chronic atrial fibrillation, continue metoprolol Eliquis on hold 3. Rheumatoid arthritis, on methotrexate, Plaquenil, and folic acid 4. BPH, continue on Flomax, Proscar 5. DVT prophylaxis?off Eliquis for now; [facility] Inpatient E&M: [id number] Subs Hosp L2
--- NOTE | 2020-07-16 17:12 | PCM.TXEXTCAR ---
- Diet 07/13/20 22:25 Diet: Regular - General Food consistency:: Regular Liquid Consistency:: Regular/Thin - Routine Orders/Code Status Routine Lab Work: CBC - within 3 days, BMP - within 3 days Code Status: Full Code - Therapies Weight Bearing: Weight bearing as tolerated Physical Therapy: Eval and Treat Occupational Therapy: Eval and Treat - Allergies/Procedures Done in Hospital Allergies/Adverse Reactions: Allergies No Known Allergies Allergy (Verified 07/13/20 18:47) Procedures: - - s/p IR guided right hip joint aspiration - Type of Care/Length of Stay Estimated LOS: Convalescent Care Less Than 30 days Type of Care Needed: Skilled Rehab Potential: Good Prognosis: Good - Additional Orders/Day of Discharge Day of Discharge: 07/17/20 - Follow Up Care Primary Care Physician: Gloria Hazel MD [Primary Care Provider] - Please follow up with your Primary Care Physician in: within 1-2 weeks of discharge Please Follow Up With: Brisa Chaves DO When: in 2 weeks
[2020-07-16] MEDS: Tamsulosin HCl 0.4 MG Capsule PO (17:28)
[2020-07-16] MEDS: Mirtazapine 15 MG Tablet 7.5 MG PO (21:22)
[2020-07-17] VITALS (9 sets, daily range): BP systolic 98–118; BP diastolic 50–63; PULSE 79–100; RESP 16–20; TEMP 36.9–38.2; O2SAT 93–99
[2020-07-17] MEDS: oxyCODONE 5 MG Tablet 10 MG PO ×5 (03:14→21:34)
[2020-07-17 05:35] LABS: Absolute Lymphocyte Count 1.03 X10^3/uL (0.83-4.51); Absolute Neutrophil Count 4.8 X10^3/uL (2.0-7.7); Basophil# 0.03 X10^3/uL; Basophil% 0.4 % (0-1); Eosinophil# 0.31 X10^3/uL; Eosinophils% 4.1 % (0-5); Hematocrit 33.8 % (40-54); Hemoglobin 10.7 g/dL (13.0-16.5); Lymphocyte # 1.03 X10^3/ul (4.0); Lymphocyte % 13.7 % (19-41); Mean Corp Hgb Conc 31.7 g/dL (32-36); Mean Corpuscular Hgb 30.1 pg (27.0-32.0); Mean Corpuscular Volume 94.9 fL (80-94); Mean Platelet Vol. 10.2 fl (6.2-12.0); Monocyte# 1.35 X10^3/uL; NRBC Flagged by Analyzer 0 % (0-5); Neutrophil # 4.76 X10^3/uL (2.7-7.7); Neutrophil % 63.4 % (47-70); Platelet Count 170 K/mm3 (150-450); RBC Distribution Width CV 13.9 % (11.6-14.6); RBC Distribution Width SD 47.7 fl (35.1-43.9); Red Blood Count 3.56 M/mm3 (4.6-6.2); White Blood Count 7.5 K/mm3 (4.4-11.0)
[2020-07-17 05:53] LABS: ALB/GLOB Ratio 0.7 RATIO (0.9-2.4); AST(SGOT) 14 U/L (15-37); Alanine Aminotransfer ALT/SGPT 12 U/L (16-61); Albumin, Serum 2.4 g/dL (3.2-5.0); Alkaline Phosphatase 54 U/L (45-117); Anion Gap 7 (5-15); BUN 12 mg/dL (7-18); BUN/Creat Ratio 17.3 RATIO (10-20); Calcium,Total 8.2 mg/dL (8.5-10.1); Chloride 101 mmol/L (98-107); Creatinine, Serum 0.69 mg/dL (0.70-1.30); EST Glomerular Filtration Rate 118 mL/min (>60); Est Glom Filt Rate - Afr Amer 142 mL/min (>60); Estimated Creatinine Clearance 49.79 ml/min; Globulin 3.4 g/dL (2.2-4.2); Glucose 108 mg/dL (74-106); International Normalized Ratio 1.3; Potassium 3.9 mmol/L (3.5-5.1); Protein, Total 5.8 g/dL (6.4-8.2); Prothrombin Time (Protime)PT. 15.4 SECONDS (11.7-14.9); Sodium Level 134 mmol/L (136-145)
[2020-07-17] MEDS: Morphine 2 MG/ML Syringe 4 MG IV ×2 (06:43→10:47)
[2020-07-17] MEDS: Senna/Docusate Sodium 1 Tablet 2 TABLET PO (06:43)
[2020-07-17] MEDS: 0.9% Saline Lock 10 ML Syringe IV (06:44)
[2020-07-17] MEDS: Folic Acid 1 MG Tablet 2 MG PO (08:54)
[2020-07-17] MEDS: Calcium Carb/Vitamin D 1 TABLET Tablet PO (08:55)
[2020-07-17] MEDS: Hydroxychloroquine 200 MG Tablet PO ×2 (08:55→16:38)
[2020-07-17] MEDS: Metoprolol Tartrate 25 MG Tablet 12.5 MG PO ×2 (08:56→23:55)
[2020-07-17] MEDS: Cyanocobalamin 500 MCG Tablet PO (08:57)
[2020-07-17] MEDS: Polyethylene Glycol 3350 17 GM PACKET PO (08:57)
[2020-07-17] MEDS: Senna/Docusate Sodium 1 Tablet PO ×2 (08:57→23:56)
[2020-07-17] MEDS: Finasteride 5 MG Tablet PO (08:58)
[2020-07-17] MEDS: Ascorbic Acid 500 MG Tablet PO (08:58)
--- NOTE | 2020-07-17 10:13 | NURSING ---
PT RESTING IN BED WITH EYES CLOSED, RESP EASY
--- NOTE | 2020-07-17 12:30 | RAD_ITS ---
PROCEDURE: Fluoroscopic guided right hip aspiration. DATE: 07/17/2020. INDICATION: Male, 79 years old. Right hip pain. PHYSICIAN: Nicko Yoon M.D. ACCESS SITE: Right hip. NEEDLE: 22-gauge spinal needle. FLUOROSCOPY TIME (if supplied): (0:30) minutes/seconds. One image was obtained. FINDINGS: The risks, benefits, and alternatives to the procedure were explained to the patient. The specific risks of bleeding, infection, and neurovascular injury were detailed and accepted. Witnessed informed consent was obtained. A 22-gauge spinal needle was positioned under venographic fluoroscopic localization. 8 cc of dark jagdeep-colored fluid was aspirated from the right hip joint. The patient tolerated the procedure well without any immediate complications. The patient was placed supine with head elevated and returned to the floor in stable condition. RAD/Inj/Asp Lior Jt Should/Hip/Knee IMPRESSION: 1. Successful fluoroscopic guided right hip aspiration with removal of 8 cc of dark jagdeep-colored fluid. Electronically Signed: Nicko Yoon MD at 13:34 EST , Service support ,
[2020-07-17] MEDS: Acetaminophen 500 MG Tablet 1000 MG PO ×2 (13:09→20:39)
--- NOTE | 2020-07-17 13:15 | CASEMGMT ---
Addendum entered by Joslyn Barton 07/17/20 14:27: Physician updated. Addendum entered by Joslyn Barton 07/17/20 14:23: SW placed a call to [facility] in TCU and asked about pre-cert. [facility] states pt's pre-cert is good over the weekend. If pt is medically cleared over the weekend, pt can admit to TCU. Green sheet on chart. Plan: TCU once medically cleared Joslyn GRAHAM, FARHAN Original Note: Social Work Note KAITY spoke with [facility] with TCU. [facility] is not sure how long pt's pre-cert is good for, encourages discharge today to TCU today. SW in to speak with pt. KAITY updated pt that the goal is to get pt to TCU today as pt's pre-cert may after today. Pt was just back up from surgery. KAITY informed pt that physician will likely check in with pt to see if pt is able to discharge to TCU today or not. Plan: TCU today Joslyn GRAHAM, FARHAN
[2020-07-17 14:25] LABS: AUTO B FLUID DILUENT BKGD CT WBC <0.1 RBC <0.01 (W<.1,R<.01); Appearance /Synovial Fluid Hazy (CLEAR); Color / Synovial Fluid Yellow (Pale Yellow); Source / Synovial Fluid HIP; Total Volume / Synovial Fluid 2.5 ml (0.1-3.5); Viscosity / Synovial Fluid Mod. Viscous (HIGH)
[2020-07-17 14:27] LABS: Synovial Fld Mononuclear WBC # 0.422 10^3/ul; Synovial Fld Mononuclear WBC % 19.8 %; Synovial Fld Polynuclear WBC % 80.2 %
[2020-07-17 14:28] LABS: RBC /Synovial Fluid 0.006 10^6/uL (0)
[2020-07-17 15:15] LABS: Neutrophil 75 % (0-25)
[2020-07-17 15:16] LABS: Body Fluid QC Type(s) BF2Q; Lymph 6 %; Monocyte /Synovial Fluid 19 %
--- NOTE | 2020-07-17 15:45 | CASEMGMT ---
ELROY COLLAZO updated by [facility] and they will be able to accept the patient. ELROY COLLAZO updated the patient. CM will continue to follow this patient and plan a safe discharge.
[2020-07-17] MEDS: Tamsulosin HCl 0.4 MG Capsule PO (16:38)
--- NOTE | 2020-07-17 18:07 | PCM.PN.HOSP ---
Patient Problems: Active and Suspected Problems (Last Reviewed 07/13/20 @ 21:[address] Catalino Greenwood MD) Scrotal pain (Acute) Right groin pain (Acute) Subjective: Still complaining of significant pain still in his right groin and right hip Vitals/I&O's: Vital Signs Temp Pulse Resp BP Pulse Ox 98.4 F 79 18 98/60 99 07/17/20 16:34 07/17/20 16:34 07/17/20 16:34 07/17/20 16:34 07/17/20 16:34 Oxygen Delivery Method Room Air Weight: 139 lb 12.369 oz Body Mass Index (BMI) 24.7 Intake and Output for Last 24 Hours 07/15/20 07/16/20 07/17/20 23:59 23:59 23:59 Intake Total 1930 / 2130 2350 / 2750 940 / 940 Output Total 2300 / 3000 2350 / 3225 1675 / 1675 Balance -370 / -870 0 / -475 -735 / -735 General: Alert, Oriented x3, Cooperative, No apparent distress HEENT: Atraumatic, PERRLA, EOMI, Normocephalic Oral: Moist Mucosa Neck: Supple, No JVD Lungs: Clear to auscultation, Normal air movement, No rhonchi, No wheeze, No rales Cardiovascular: Regular rate, Regular Rhythm, Normal S1, Normal S2, No murmurs Abdomen: Soft, Non Tender, Non-Distended, No Hepato-splenomegaly, - - Tender of the inferior pubic rami Extremities: No edema, Capillary Refill Less than 3 Seconds Skin: No rashes, No breakdown Neurological: Neuro grossly intact, Sensory exam intact to light touch and pain Psych/Mental Status: Normal Affect, Appropriate Microbiology Past 72 Hours 07/17/20 12:45 Fluid - Other Gram Stain - Final 07/14/20 17:45 Urine, Random Urine Culture - Final Culture exhibits no growth. 07/14/20 16:58 Blood Culture (Wb) - Anticubital Right Blood Culture - Preliminary No growth in 48 hours. 07/16/20 15:35 Mucosa - Nose SARS-CoV-2 Antigen (Rapid) - Final Laboratory Results 07/17/20 04:45: WBC 7.5, RBC 3.56 L, Hgb 10.7 L, Hct 33.8 L, MCV 94.9 H, MCH 30.1, MCHC 31.7 L, RDW Std Deviation 47.7 H, RDW Coeff of Jaciel 13.9, Plt Count 170, MPV 10.2, Immature Gran % (Auto) 0.400, Neut % (Auto) 63.4, Lymph % (Auto) 13.7 L, Kemper % (Auto) 18.0 H, Eos % (Auto) 4.1, Baso % (Auto) 0.4, Absolute Neuts (auto) 4.8, Absolute Lymphs (auto) 1.03, Nucleated RBC % 0 07/17/20 04:45: PT 15.4 H, INR 1.3 07/17/20 04:45: Sodium 134 L, Potassium 3.9, Chloride 101, Carbon Dioxide 26.0, Anion Gap 7, BUN 12, Creatinine 0.69 L, Estim Creat Clear Calc 49.79, Est GFR (MDRD) Af Amer 142, Est GFR (MDRD) Non-Af 118, BUN/Creatinine Ratio 17.3, Glucose 108 H, Calcium 8.2 L, Total Bilirubin 0.60, AST 14 L, ALT 12 L, Alkaline Phosphatase 54, Total Protein 5.8 L, Albumin 2.4 L, Globulin 3.4, Albumin/Globulin Ratio 0.7 L 07/17/20 12:46: Fluid Source Cancelled, Fluid Color Cancelled, Fluid Appearance Cancelled, Fluid WBC Cancelled, Fluid RBC Cancelled, Fluid Tot Cell Count Cancelled, Fld Polynuclear WBCs # Cancelled, Fld Polynuclear WBCs % Cancelled, Fluid Mononuclear WBCs Cancelled, Fld Mononuclear WBCs % Cancelled, Fluid Neutrophils Cancelled, Fluid Lymphocytes Cancelled, Fluid Monocytes Cancelled, Fluid Plasma Cells Cancelled, Fluid Macrophages Cancelled, Fld Mesothelial Cells Cancelled, Fluid Other Cells Cancelled, Fl Pathologist Comment Cancelled, Fluid Comment 2 Cancelled, Synovial Source HIP, Synovial Color Yellow, Synovial Appearance Hazy, Synovial Volume 2.5, Synovial Viscosity Mod. Viscous, Synovial WBC 2.1320 H, Synovial RBC 0.006 H, Synovial Tot Cell Ct 2.1500 H, Synov Polynuclear WBCs 1.710, Synov Mononuclear WBCs 0.422, Synovial Neutrophils 75 H, Synovial Lymphocytes 6, Synovial Monocytes 19, Synovial Polynuclear % 80.2, Synovial Mononuclear % 19.8, Synovial Path Comment May follow Current Medications Acetaminophen (Acetaminophen 500 Mg Tablet) 1,000 mg PO Q8H PRN PRN PRN Reason: Pain Score 1-3 Last Admin: 07/17/20 13:09 Dose: 1,000 mg Documented by: Ascorbic Acid (Ascorbic Acid 500 Mg Tablet) 500 mg PO DAILY [facility] Last Admin: 07/17/20 08:58 Dose: 500 mg Documented by: Calcium/Vitamin D (Calcium Carb/Vitamin D 1 Tablet Tablet) 1 tablet PO DAILY@0800 [facility] Last Admin: 07/17/20 08:55 Dose: 1 tablet Documented by: Cyanocobalamin (Cyanocobalamin 500 Mcg Tablet) 500 mcg PO DAILY [facility] Last Admin: 07/17/20 08:57 Dose: 500 mcg Documented by: Finasteride (Finasteride 5 Mg Tablet) 5 mg PO DAILY [facility] Last Admin: 07/17/20 08:58 Dose: 5 mg Documented by: Folic Acid (Folic Acid 1 Mg Tablet) 2 mg PO DAILY@0800 [facility] Last Admin: 07/17/20 08:54 Dose: 2 mg Documented by: Hydroxychloroquine Sulfate ([facility] 200 Mg [facility]t) [facility] Last Admin: 07/17/20 16:38 Dose: 200 mg Documented by: Methotrexate (Methotrexate 2.5 Mg Tablet) 20 mg PO [facility] Metoprolol Tartrate (Metoprolol Tartrate 25 Mg Tablet) 12.5 mg PO BID [facility] Last Admin: 07/17/20 08:56 Dose: 12.5 mg Documented by: Mirtazapine (Mirtazapine 15 Mg Tablet) 7.5 mg PO QHS [facility] Last Admin: 07/16/20 21:22 Dose: 7.5 mg Documented by: Morphine Sulfate (Morphine 2 Mg/Ml Syringe) 4 mg IV Q3H PRN PRN PRN Reason: Pain Score 7-10/10 Last Admin: 07/17/20 10:47 Dose: 4 mg Documented by: Ondansetron HCl (Ondansetron 4 Mg/2 Ml Vial) 4 mg IV Q8H PRN PRN PRN Reason: NAUSEA/VOMITING Oxycodone HCl (Oxycodone 5 Mg Tablet) 10 mg PO Q4H PRN PRN PRN Reason: Pain Score 4-6/10 Last Admin: 07/17/20 17:29 Dose: 10 mg Documented by: Polyethylene Glycol (Polyethylene Glycol 3350 17 Gm Packet) 17 gm PO DAILY [facility] Last Admin: 07/17/20 08:57 Dose: 17 gm Documented by: Senna/Docusate Sodium (Senna/Docusate Sodium 1 Tablet) 2 tablet PO BID PRN PRN PRN Reason: Constipation Last Admin: 07/17/20 06:43 Dose: 2 tablet Documented by: Senna/Docusate Sodium (Senna/Docusate Sodium 1 Tablet) 1 tablet PO BID [facility] Last Admin: 07/17/20 08:57 Dose: 1 tablet Documented by: Sodium Chloride (0.9% Saline Lock 10 Ml Syringe) 10 - 40 ml IV UD PRN PRN Reason: SALINE FLUSH Last Admin: 07/17/20 06:44 Dose: 10 ml Documented by: Tamsulosin HCl (Tamsulosin Hcl 0.4 Mg Capsule) 0.4 mg PO DAILY@1730 [facility] Last Admin: 07/17/20 16:38 Dose: 0.4 mg Documented by: Trazodone HCl (Trazodone 100 Mg Tablet) 150 mg PO QHS [facility] Last Admin: 07/17/20 00:00 Dose: 150 mg Documented by: STROKE Vital Signs/Narrative: Vital Signs Temp Pulse Resp BP Pulse Ox 07/17/20 16:34 98.4 F 79 18 98/60 99 Medical Necessity - Tobacco Use Smoking Status: Former smoker Assessment/Plan All Active Problems (Last Reviewed 07/13/20 @ 21:[address] Catalino Greenwood MD) Scrotal pain (Acute) Right groin pain (Acute) Recurrent umbilical hernia (Resolved) 1. Intractable right groin pain secondary to moderate right hip joint effusion/fluid in the surrounding hip muscle -X-ray of the pelvis on admission was negative for any acute fracture and CT of the abdomen pelvis was unremarkable. He also had an MRI which demonstrated moderate right hip joint effusion as well as fluid in gluteal muscles and the abductor rachell muscle -The lumbar spine was also obtained which demonstrated previous multilevel laminectomy with an ant anterior listhesis of 9 mm on L4 and L5 -Plan for drainage in IR today with fluid studies 2. Chronic A. fib -Continue with his metoprolol -Can restart Eliquis in a.m. -blood pressure is stable 3. RA - Stable - C/w Golimumab, plaquenil, and methotrexate - C/w folic acid 4. BPH - Stable -C/w flomax and proscar 5. Anxiety/Depression - Stable - C/w remeron and topamax and trazodone DVT: SCDs OBSV E&M: 09144 Subsequent observation care L2
[2020-07-17] MEDS: traZODone 100 MG Tablet 150 MG PO ×2 (23:54)
[2020-07-17] MEDS: Mirtazapine 15 MG Tablet 7.5 MG PO (23:56)
[2020-07-18 04:30] VITALS: BP 125/66; PULSE 95; RESP 16; TEMP 37.1; O2SAT 99
[2020-07-18] MEDS: oxyCODONE 5 MG Tablet 10 MG PO ×2 (05:27→09:23)
[2020-07-18 07:31] VITALS: BP 123/64; PULSE 82; RESP 16; TEMP 37.1; O2SAT 97
[2020-07-18] MEDS: Folic Acid 1 MG Tablet 2 MG PO (07:40)
[2020-07-18] MEDS: Calcium Carb/Vitamin D 1 TABLET Tablet PO (07:40)
[2020-07-18] MEDS: Hydroxychloroquine 200 MG Tablet PO (07:41)
[2020-07-18] MEDS: Acetaminophen 500 MG Tablet 1000 MG PO (09:07)
[2020-07-18] MEDS: Amox/Clavulanate 875 MG Tablet PO (09:08)
[2020-07-18 09:09] VITALS: PULSE 82
[2020-07-18] MEDS: Doxycycline 100 MG CAPSULE PO (09:09)
[2020-07-18] MEDS: Metoprolol Tartrate 25 MG Tablet 12.5 MG PO (09:09)
[2020-07-18] MEDS: Senna/Docusate Sodium 1 Tablet PO (09:10)
[2020-07-18] MEDS: Cyanocobalamin 500 MCG Tablet PO (09:11)
[2020-07-18] MEDS: Ascorbic Acid 500 MG Tablet PO (09:11)
[2020-07-18] MEDS: Polyethylene Glycol 3350 17 GM PACKET PO (09:12)
[2020-07-18] MEDS: APIXABAN 2.5 MG TABLET PO (09:18)
[2020-07-18] MEDS: Finasteride 5 MG Tablet PO (09:26)
--- NOTE | 2020-07-18 09:33 | DS.PCM_ITS ---
Discharge Date and Diagnosis - Problem List Patient Problems: Active and Suspected Problems (Last Reviewed 07/13/20 @ 21:[address] Catalino Greenwood MD) Debility (Acute) Scrotal pain (Acute) Right groin pain (Acute) Date of Admission: 07/13/20 Date of Discharge: 07/18/20 - Primary Discharge Diagnosis Acute Problems: Active Problems (Last Reviewed 07/13/20 @ 21:[address] Catalino Greenwood MD) 1. Acute intractable right groin pain secondary to moderate right hip joint effusion/fluid in the surrounding hip muscles 2. Fever, unclear etiology, probable hip joint infection - Secondary Discharge Diagnosis Chronic Problems: Chronic Problems (Last Reviewed 07/13/20 @ 21:[address] Catalino Greenwood MD) Atrial fibrillation (Chronic) Debility (Chronic) Lumbar spinal stenosis (Chronic) Atrial fibrillation with rapid ventricular response (Chronic) Muscle spasm (Chronic) GERD (gastroesophageal reflux disease) (Chronic) Rheumatoid arthritis (Chronic) SVT (supraventricular tachycardia) (Chronic) Insomnia (Chronic) BPH (benign prostatic hyperplasia) (Chronic) Abnormal EKG (Chronic) Abnormal echocardiogram (Chronic) Left ventricular hypokinesis (Chronic) Leg pain, bilateral (Chronic) Edema (Chronic) Hospital Course and Treatment Imaging Results: Clinical Impression(s) from Imaging Studies Abdomen/Pelvis CT 07/13/20 19:06 IMPRESSION: 1. Reidentification of nonenhancing benign cyst in the dome of the right and left lobes of the liver as well as mild intrahepatic and extrahepatic biliary duct dilatation likely postcholecystectomy related. Absent gallbladder compatible with prior cholecystectomy. 2. The appendix was not on this exam or the prior study dated February 20172017 and may not have developed or could have been previously removed. 3. No visualized hydronephrosis. 4. Colonic diverticulosis. 5. Small bilateral fat-containing hernias. Electronically Signed: Phong Ho MD at 20:51 EST , Service support , Hip/Pelvis X-Ray 07/13/20 20:00 IMPRESSION: No visualized fracture. Electronically Signed: Phong Ho MD at 20:39 EST , Service support , Chest X-Ray 07/14/20 17:30 IMPRESSION: COPD Electronically Signed: Phong Ho MD at 18:36 EST , Service support , Lumbar Spine X-Ray 07/15/20 07:39 IMPRESSION: Status post multilevel laminectomy and disc space narrowing. Anterior listhesis of L4 on L5 measuring 9 mm. Electronically Signed: Nicko Yoon MD at 11:08 EST , Service support , Pelvis MRI 07/15/20 09:14 IMPRESSION: 1. Moderate right hip joint joint effusion is fluid density in the gluteal muscles and adductor rachell muscle musculature. Fluid is also seen anteriorly between the car quadricep musculature. Electronically Signed: Sridhar Hart DO at 21:00 EST Tel [phone], Service support , Joint Aspiration/Injection 07/17/20 12:30 IMPRESSION: 1. Successful fluoroscopic guided right hip aspiration with removal of 8 cc of dark jagdeep-colored fluid. Electronically Signed: Nicko Yoon MD at 13:34 EST , Service support , Orthopedic surgery Operations: None Procedures: None Summary of Care Provided: The patient is a 79 year old M with PMHx of chronic atrial fibrillation, RA who recently had laminectomy in April 2020, discharged to TCU and was followed up with home health. Patient presented with 1 day history of excruciating right scrotal pain that started while sleeping. Reportedly patient was turning over in bed and he heard a snap. He describes an excruciating pain in his right groin, worse with ambulation, radiating to his right buttocks. His management was as follows: 1. Acute intractable right groin pain secondary to moderate right hip joint effusion/fluid in the surrounding hip muscles X-ray of the pelvis was negative for acute fracture. CT of the abdomen and pelvis was also unremarkable. Lumbar spine x-ray on 07/15/20 shows status post multilevel laminectomy with disc space narrowing, anterior listhesis of L4 on L5 Status post IR hip joint drainage done on 07/17/20. Fluid analysis was hazy, total cell count is 2.15, WBC 2.13 Discussed with orthopedics surgery; not suggestive of septic arthritis Will follow-up in 2 weeks. Continue on Tylenol and oxycodone. Discharged to TCU for subacute rehab. 2. Fever, low grade noted in the hospital, CXR and UA negative for infection In the light of patient's immunocompromised state, will treat with Augmentin and Doxycycline for 1 week 3. Chronic atrial fibrillation, on metoprolol and Eliquis 4. Rheumatoid arthritis, on methotrexate, Plaquenil, and folic acid 5. BPH, on Flomax, Proscar Patient Problems: Active and Suspected Problems (Last Reviewed 07/13/20 @ 21:[address] Catalino Greenwood MD) Debility (Acute) Scrotal pain (Acute) Right groin pain (Acute) Subjective: On the day of discharge, patient was seen and examined. He still has some pain on ambulation, otherwise he had no complains. No acute events Objective: Physical exam: General: Alert, Oriented x3, Cooperative, not on oxygen HEENT: Atraumatic, PERRLA, EOMI, Normocephalic Neck: Supple, No JVD, Negative Carotid Bruits Lungs: Clear to auscultation, Normal air movement, No rhonchi, No wheeze, No rales Cardiovascular: Regular rate, Normal S1, Normal S2, No murmurs Abdomen: Bowel Sounds Present, Soft, Non Tender, - - Tenderness on the pubic inferior rami bone. Scrotal exam is normal Extremities: Edema, +1, bilateral, appears chronic Skin: No rashes Musculoskeletal: - - Mild point tenderness of right gluteus Neurological: Cranial nerves II-XII grossly intact Psych/Mental Status: Normal Affect, Appropriate - Physical Exam Vitals/I&O's: Vital Signs Temp Pulse Resp BP Pulse Ox 98.8 F 82 16 123/64 H 97 07/18/20 07:31 07/18/20 09:09 07/18/20 07:31 07/18/20 07:31 07/18/20 07:31 Oxygen Delivery Method Room Air Weight: 63.4 kg Body Mass Index (BMI) 24.7 Intake and Output for Last 24 Hours 07/16/20 07/17/20 07/18/20 23:59 23:59 23:59 Intake Total 2350 / 2750 1580 / 1980 900 / 900 Output Total 2350 / 3225 2125 / 2575 1250 / 1250 Balance 0 / -475 -545 / -595 -350 / -350 Microbiology Past 72 Hours 07/17/20 12:45 Fluid - Other Gram Stain - Final 07/14/20 17:45 Urine, Random Urine Culture - Final Culture exhibits no growth. 07/14/20 16:58 Blood Culture (Wb) - Anticubital Right Blood Culture - Preliminary No growth in 48 hours. 07/16/20 15:35 Mucosa - Nose SARS-CoV-2 Antigen (Rapid) - Final Laboratory Results 07/17/20 12:46: Fluid Source Cancelled, Fluid Color Cancelled, Fluid Appearance Cancelled, Fluid WBC Cancelled, Fluid RBC Cancelled, Fluid Tot Cell Count Cancelled, Fld Polynuclear WBCs # Cancelled, Fld Polynuclear WBCs % Cancelled, Fluid Mononuclear WBCs Cancelled, Fld Mononuclear WBCs % Cancelled, Fluid Neutrophils Cancelled, Fluid Lymphocytes Cancelled, Fluid Monocytes Cancelled, Fluid Plasma Cells Cancelled, Fluid Macrophages Cancelled, Fld Mesothelial Cells Cancelled, Fluid Other Cells Cancelled, Fl Pathologist Comment Cancelled, Fluid Comment 2 Cancelled, Synovial Source HIP, Synovial Color Yellow, Synovial Appearance Hazy, Synovial Volume 2.5, Synovial Viscosity Mod. Viscous, Synovial WBC 2.1320 H, Synovial RBC 0.006 H, Synovial Tot Cell Ct 2.1500 H, Synov Polynuclear WBCs 1.710, Synov Mononuclear WBCs 0.422, Synovial Neutrophils 75 H, Synovial Lymphocytes 6, Synovial Monocytes 19, Synovial Polynuclear % 80.2, Synovial Mononuclear % 19.8, Synovial Path Comment May follow Current Medications Acetaminophen (Acetaminophen 500 Mg Tablet) 1,000 mg PO Q8H PRN PRN PRN Reason: Pain Score 1-3 Last Admin: 07/18/20 09:07 Dose: 1,000 mg Documented by: Amoxicillin/Clavulanate Potassium (Amox/Clavulanate 875 Mg Tablet) [facility] Last Admin: 07/18/20 09:08 Dose: 875 mg Documented by: Apixaban (Apixaban 2.5 Mg Tablet) 2.5 mg PO BID [facility] Last Admin: 07/18/20 09:18 Dose: 2.5 mg Documented by: Ascorbic Acid (Ascorbic Acid 500 Mg Tablet) 500 mg PO DAILY [facility] Last Admin: 07/18/20 09:11 Dose: 500 mg Documented by: Cyanocobalamin (Cyanocobalamin 500 Mcg Tablet) 500 mcg PO DAILY [facility] Last Admin: 07/18/20 09:11 Dose: 500 mcg Documented by: Doxycycline Monohydrate (Doxycycline 100 Mg Capsule) 100 mg PO BID [facility] Last Admin: 07/18/20 09:09 Dose: 100 mg Documented by: Finasteride (Finasteride 5 Mg Tablet) 5 mg PO DAILY [facility] Last Admin: 07/18/20 09:26 Dose: 5 mg Documented by: Folic Acid (Folic Acid 1 Mg Tablet) 2 mg PO DAILY@0800 [facility] Last Admin: 07/18/20 07:40 Dose: 2 mg Documented by: Hydroxychloroquine Sulfate (Hydroxychloroquine 200 Mg Tablet) [facility] Last Admin: 07/18/20 07:41 Dose: 200 mg Documented by: Methotrexate (Methotrexate 2.5 Mg Tablet) 20 mg PO [facility] Metoprolol Tartrate (Metoprolol Tartrate 25 Mg Tablet) 12.5 mg PO BID [facility] Last Admin: 07/18/20 09:09 Dose: 12.5 mg Documented by: Mirtazapine (Mirtazapine 15 Mg Tablet) 7.5 mg PO QHS [facility] Last Admin: 07/17/20 23:56 Dose: 7.5 mg Documented by: Ondansetron HCl (Ondansetron 4 Mg/2 Ml Vial) 4 mg IV Q8H PRN PRN PRN Reason: NAUSEA/VOMITING Oxycodone HCl (Oxycodone 5 Mg Tablet) 10 mg PO Q4H PRN PRN PRN Reason: Pain Score 4-6/10 Last Admin: 07/18/20 09:23 Dose: 10 mg Documented by: Polyethylene Glycol (Polyethylene Glycol 3350 17 Gm Packet) 17 gm PO DAILY [facility] Last Admin: 07/18/20 09:12 Dose: 17 gm Documented by: Senna/Docusate Sodium (Senna/Docusate Sodium 1 Tablet) 2 tablet PO BID PRN PRN PRN Reason: Constipation Last Admin: 07/17/20 06:43 Dose: 2 tablet Documented by: Senna/Docusate Sodium (Senna/Docusate Sodium 1 Tablet) 1 tablet PO BID [facility] Last Admin: 07/18/20 09:10 Dose: 1 tablet Documented by: Sodium Chloride (0.9% Saline Lock 10 Ml Syringe) 10 - 40 ml IV UD PRN PRN Reason: SALINE FLUSH Last Admin: 07/17/20 06:44 Dose: 10 ml Documented by: Tamsulosin HCl (Tamsulosin Hcl 0.4 Mg Capsule) 0.4 mg PO DAILY@1730 [facility] Last Admin: 07/17/20 16:38 Dose: 0.4 mg Documented by: Trazodone HCl (Trazodone 100 Mg Tablet) 150 mg PO QHS [facility] Last Admin: 07/17/20 23:54 Dose: 150 mg Documented by: Discharge Diet: Low fat/ Low Cholesterol, 2000 mg Sodium Diet Discharge Activity: Return to Normal Activity Home Medications: Medications to take at Discharge Hydroxychloroquine [Plaquenil] 200 mg PO BIDCM 10/09/14 Trazodone HCl 150 mg PO QHS 09/22/17 Finasteride [Proscar] 5 mg PO DAILY 12/10/18 methotrexate sodium 2.5 mg tablet 20 mg PO FR 01/29/19 ascorbic acid (vitamin C) 500 mg chewable tablet 500 mg PO DAILY tab 01/30/19 golimumab 12.5 mg/mL intravenous solution 135 mg IV [id number] ml 01/30/19 mecobalamin (vitamin B12) 5,000 mcg disintegrating tablet 2,500 mcg PO DAILY tab 01/30/19 folic acid 800 mcg tablet 1.6 mg PO DAILY tab 11/11/19 CBD Tincture Oil 250 mg TOPICAL PRN PRN 04/06/20 herbal supplement 1 cap PO DAILY 04/06/20 [id number] acid 400 mcg-vit K 20 mcg-lycop 300 mcg tablet 1 tab PO DAILY 04/06/20 turmeric 400 mg capsule 400 mg PO DAILY cap 04/06/20 Apixaban [Eliquis] 2.5 mg PO BID #60 tab 06/01/20 Aspirin [Aspirin, Baby] 81 mg PO DAILY@0800 02/15/21 Cyanocobalamin (Vitamin B-12) [Vitamin B-12] 500 mcg PO DAILY 07/13/20 Topiramate [Topamax] 25 mg PO BID 07/13/20 Acetaminophen [Tylenol] 1,000 mg PO Q8H PRN PRN tab 07/16/20 Oxycodone [Oxyir] 10 mg PO Q4H PRN PRN 4 Days #20 tab 07/16/20 Amox/Clavulanate Tablet [Augmentin Tablet] 875 mg PO BIDCM 07/18/20 Doxycycline 100 mg PO BID 07/18/20 Metoprolol Tartrate [Lopressor (beta santiago)] 12.5 mg PO BID 07/18/20 Mirtazapine [Remeron] 7.5 mg PO QHS 07/18/20 Polyethylene Glycol 3350 [Miralax] 17 gm PO DAILY 07/18/20 Senna/Docusate Sodium [Senokot-S] 2 tab PO BID 07/18/20 Tamsulosin HCl [Flomax] 0.4 mg PO DAILY@1730 07/18/20 Primary Care Physician: Gloria Hazel MD [Primary Care Provider] - Please follow up with your Primary Care Physician in: within 1-2 weeks of discharge Please Follow Up With: Brisa Chaves DO When: in 2 weeks Disposition: Shelter facility Minutes spent on discharge:: 40 Patient Condition:: Stable Medical Necessity - Tobacco Use Smoking Status: Former smoker Tobacco Use: Non-smoker Meaningful Use Info Meaningful Use Diagnoses (Choose all that apply): None applicable Inpatient E&M: 49298 Disch Hosp
[2020-07-20 13:16] LABS: Pathologist Comment Reviewed
== END 2020-07-18 13:15 | disposition skilled nursing facility (03) ==
LOC: ED 19:23 → MS3 21:33
PROVIDERS: Family Medicine; Admitting Provider Hospitalist; Emergency Provider Emergency Medicine; PCP Family Medicine; Visit Provider Internal Medicine
DX: M25.451 Effusion, right hip (principal); I48.0 Paroxysmal atrial fibrillation; M48.061 Spinal stenosis, lumbar region without neurogenic claudication; K21.9 Gastro-esophageal reflux disease without esophagitis; M06.9 Rheumatoid arthritis, unspecified; N40.0 Benign prostatic hyperplasia without lower urinary tract symptoms; I47.1 Supraventricular tachycardia; Z79.899 Other long term (current) drug therapy; Z79.01 Long term (current) use of anticoagulants; Z79.82 Long term (current) use of aspirin; Z87.891 Personal history of nicotine dependence; F41.9 Anxiety disorder, unspecified; F32.9 Major depressive disorder, single episode, unspecified; R50.9 Fever, unspecified
CPT/HCPCS: 20610; 36415; 71045; 72110; 72195; 73502; 74177; 77002; 80048; 80053; 81002; 85025; 85610; 85730; 87040; 87070; 87075; 87086; 87205; 87426; 89050; 89051; 96374; 96375; 96376; 97110; 97116; 97162; 97166; 97530; 97535; 99218; 99284; Q9967; A4216; G0378; J2405

== ENCOUNTER 2020-07-18 13:40 | Inpatient (IN) | payer MEDICARE, SELFPAY ==
[2020-07-18 13:43] VITALS: BP 111/76; PULSE 86; RESP 18; TEMP 36.4; O2SAT 96
[2020-07-18 13:55] VITALS: BMI 24.3
[2020-07-18 14:14] VITALS: BMI 24.3
--- NOTE | 2020-07-18 14:27 | PCM.HP.STD ---
Problem List (1) Right hip joint effusion Status: Acute (2) Appetite loss Status: Chronic (3) Debility Status: Acute (4) Lumbar spinal stenosis Status: Chronic (5) Atrial fibrillation with rapid ventricular response Status: Chronic (6) Muscle spasm Status: Chronic (7) GERD (gastroesophageal reflux disease) Status: Chronic (8) Rheumatoid arthritis Status: Chronic (9) SVT (supraventricular tachycardia) Status: Chronic (10) Insomnia Status: Chronic (11) BPH (benign prostatic hyperplasia) Status: Chronic (12) Right groin pain Status: Acute History of Present Illness Date of Admission: 07/18/20 Chief Complaint: Here for rehabilitation, strengthening, prior to discharge home alone. 05/07/2020 Ortho spine performed lumbar laminectomy. 07/13/2020 The patient is a 79 year old Male with below past medical history presented to [facility] Emergency Department with right buttock pain. 07/13/2020 X-ray pelvis, right hip negative fracture. 07/13/2020 CTA abdomen/pelvis showed bilateral liver cysts, mild biliary duct dilatation, prior cholecystectomy, colonic diverticulosis, small bilateral fat containing hernias. 07/14/2020 Chest X-ray showed chronic obstructive pulmonary disease. 07/15/2020 X-ray lumbar spine status post multilevel laminectomy, disc space narrowing, L4, L5 anterior listhesis. Abrupt right groin, right buttock pain, felt pop while turning over in bed. Morphine, Zofran IV given, pain still 8 out of 10. Unable to move right leg, unable to walk. 07/13/2020 Admit to Hospital. Morphine IV as needed right groin pain. 07/14/2020 Tylenol, Oxycodone, Morphine for right groin pain. PT/OT recommended therapy at discharge. 07/15/2020 Orthopedics recommended MRI. 07/15/2020 MRI pelvis showed moderate right hip effusion. Fluid in gluteal muscles, adductor rachell muscle, fluid anterior to quadricep. 07/16/2020 Hold Eliquis, aspirin to aspirate right hip. 07/17/2020 IR aspirated right hip 8cc dark jagdeep colored fluid. Fluid sent for appropriate tests. 07/18/2020 Admit to TCU with debility, here for rehabilitation, strengthening, prior to discharge home alone. Past Medical History Past Medical History (Chronic Problems): Chronic Problems (Last Reviewed 07/13/20 @ 21:[address] Catalino Greenwood MD) Atrial fibrillation (Chronic) Lumbar spinal stenosis (Chronic) Atrial fibrillation with rapid ventricular response (Chronic) Muscle spasm (Chronic) GERD (gastroesophageal reflux disease) (Chronic) Rheumatoid arthritis (Chronic) SVT (supraventricular tachycardia) (Chronic) Insomnia (Chronic) BPH (benign prostatic hyperplasia) (Chronic) Appetite loss (Chronic) Abnormal EKG (Chronic) Abnormal echocardiogram (Chronic) Left ventricular hypokinesis (Chronic) Leg pain, bilateral (Chronic) Edema (Chronic) Medical History: Medical History (Last Reviewed 07/13/20 @ 21:[address] 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 Leg pain, bilateral (Chronic) M79.604, M79.605 Edema (Chronic) R60.9 H/o finger stitches Left index H/o three feet of intestines removed Hemorrhoids K64.9 PAT (paroxysmal atrial tachycardia) I47.1 SVT (supraventricular tachycardia) I47.1 Back pain M54.9 Rheumatoid arthritis M06.9 Allergies No Known Allergies Allergy (Verified 07/13/20 18:47) Home Medications: Ambulatory Orders Medication Instructions Recorded Hydroxychloroquine [Plaquenil] 200 mg PO BIDCM 10/09/14 Trazodone HCl 150 mg PO QHS 09/22/17 Finasteride [Proscar] 5 mg PO DAILY 12/10/18 methotrexate sodium 2.5 mg tablet 20 mg PO FR 01/29/19 ascorbic acid (vitamin C) 500 mg 500 mg PO DAILY tab 01/30/19 chewable tablet golimumab 12.5 mg/mL intravenous 135 mg IV [id number] ml 01/30/19 solution mecobalamin (vitamin B12) 5,000 2,500 mcg PO DAILY tab 01/30/19 mcg disintegrating tablet folic acid 800 mcg tablet 1.6 mg PO DAILY tab 11/11/19 CBD Tincture Oil 250 mg TOPICAL PRN PRN 04/06/20 herbal supplement 1 cap PO DAILY 04/06/20 xqmeamnn-hbzndxfp-sylyc acid 400 1 tab PO DAILY 04/06/20 mcg-vit K 20 mcg-lycop 300 mcg tablet turmeric 400 mg capsule 400 mg PO DAILY cap 04/06/20 Apixaban [Eliquis] 2.5 mg PO BID #60 tab 06/01/20 Aspirin [Aspirin, Baby] 81 mg PO DAILY@0800 07/13/20 Cyanocobalamin (Vitamin B-12) 500 mcg PO DAILY 07/13/20 [Vitamin B-12] Topiramate [Topamax] 25 mg PO BID 07/13/20 Acetaminophen [Tylenol] 1,000 mg PO Q8H PRN PRN tab 07/16/20 Oxycodone [Oxyir] 10 mg PO Q4H PRN PRN 4 Days #20 tab 07/16/20 Amox/Clavulanate Tablet [Augmentin 875 mg PO BIDCM 07/18/20 Tablet] Doxycycline 100 mg PO BID 07/18/20 Metoprolol Tartrate [Lopressor 12.5 mg PO BID 07/18/20 (beta santiago)] Mirtazapine [Remeron] 7.5 mg PO QHS 07/18/20 Polyethylene Glycol 3350 [Miralax] 17 gm PO DAILY 07/18/20 Senna/Docusate Sodium [Senokot-S] 2 tab PO BID 07/18/20 Tamsulosin HCl [Flomax] 0.4 mg PO DAILY@1730 07/18/20 Surgical History: Surgical History (Last Reviewed 07/13/20 @ 21:[address] Catalino Greenwood MD) H/O colonoscopy Z98.890 H/O umbilical hernia repair Z98.890, Z87.19 S/P appendectomy Z90.49 S/P cataract surgery Z98.49 Bilateral S/P hemorrhoidectomy Z98.890, Z87.19 S/P inguinal hernia repair Z98.890, Z87.19 bilateral S/P laparoscopic cholecystectomy Z90.49 S/P left colectomy Z90.49 S/P rotator cuff repair Z98.890 Bilateral S/P vasectomy Z98.52 Surgical History: adenoidectomy, cataract, cholecystectomy - Laparoscopic., colectomy - Left., herniorrhaphy - Umbilical, Inguinal., rotator cuff repair - Bilateral., - - Hemorrhoidectomy, Vasectomy. Psychiatric History: No pertinent psych hx Lives: Alone Smoking Status: Former smoker Tobacco Use: Non-smoker Alcohol: None Drugs: None - *Family History Maternal Family History: Family History (Last Reviewed 07/13/20 @ 21:[address] Catalino Greenwood MD) Father CVA (cerebral vascular accident) Brother CAD (coronary artery disease) Mother CVA (cerebral vascular accident) Grandfather Cancer History Items: No pertinent history Paternal Family History: Family History (Last Reviewed 07/13/20 @ 21:[address] Catalino Greenwood MD) Father CVA (cerebral vascular accident) Brother CAD (coronary artery disease) Mother CVA (cerebral vascular accident) Grandfather Cancer History Items: No pertinent history VTE Information - Inpt Only VTE Present on Admission: No VTE Mechan Device Prophylaxis: Knee High BIA Hose VTE Pharm Prophylaxis ordered?: No Reason prophylaxis not ordered:: Treatment Not Indicated Patient Problems: Active and Suspected Problems (Last Reviewed 07/13/20 @ 21:[address] Catalino Greenwood MD) Debility (Acute) Right groin pain (Acute) Right hip joint effusion (Acute) - Physical Exam Vitals/I&O's: Weight: 62.233 kg Body Mass Index (BMI) 24.3 Current Medications Acetaminophen (Acetaminophen 500 Mg Tablet) 1,000 mg PO Q8H PRN PRN PRN Reason: Pain Score 1-3 Amoxicillin/Clavulanate Potassium (Amox/Clavulanate 875 Mg Tablet) 875 mg PO BIDCM [facility] Stop: 07/25/20 17:01 Apixaban (Apixaban 2.5 Mg Tablet) 2.5 mg PO BID [facility] Aspirin (Aspirin 81 Mg Tab.Chew) 81 mg PO DAILY@0800 [facility] Cyanocobalamin (Cyanocobalamin 500 Mcg Tablet) 500 mcg PO DAILY [facility] Doxycycline Monohydrate (Doxycycline 100 Mg Capsule) 100 mg PO BID [facility] Stop: 07/25/20 18:01 Finasteride (Finasteride 5 Mg Tablet) 5 mg PO DAILY [facility] Hydroxychloroquine Sulfate (Hydroxychloroquine 200 Mg Tablet) 200 mg PO BIDCM [facility] Methotrexate (Methotrexate 2.5 Mg Tablet) 20 mg PO FR [facility] Metoprolol Tartrate (Metoprolol Tartrate 25 Mg Tablet) 12.5 mg PO BID [facility] Mirtazapine (Mirtazapine 15 Mg Tablet) 7.5 mg PO QHS [facility] Non-Formulary Medication (Ascorbic Acid [Vitamin C]) 500 mg PO DAILY [facility] Non-Formulary Medication (Folic Acid) 1.6 mg PO DAILY [facility] Non-Formulary Medication (Golimumab) 135 mg IV [id number] [facility] Non-Formulary Medication (Mecobalamin (Vitamin B12)) 2,500 mcg PO DAILY [facility] Non-Formulary Medication (Multivit-Min/Folic/Vit K/Lycop [Men's Daily Formula Tablet]) 1 tab PO DAILY [facility] Non-Formulary Medication (Trazodone Hcl) 150 mg PO QHS [facility] Non-Formulary Medication (Turmeric) 400 mg PO DAILY [facility] Oxycodone HCl (Oxycodone 5 Mg Tablet) 10 mg PO Q4H PRN PRN PRN Reason: Pain Score 4-6/10 Polyethylene Glycol (Polyethylene Glycol 3350 17 Gm Packet) 17 gm PO DAILY [facility] Senna/Docusate Sodium (Senna/Docusate Sodium 1 Tablet) tablet PO BID [facility] Tamsulosin HCl (Tamsulosin Hcl 0.4 Mg Capsule) 0.4 mg PO DAILY@1730 [facility] Topiramate (Topiramate 25 Mg Tablet) 25 mg PO BID [facility] Tuberculin PPD (Tuberculin,Purif.Prot.Deriv. 50 Tu/Ml Vial) 5 tu ID X1 ONE Stop: 07/19/20 10:01 Tuberculin PPD (Tuberculin,Purif.Prot.Deriv. 50 Tu/Ml Vial) 5 tu ID X1 ONE Stop: 07/26/20 10:01 Assessment/Plan All Active Problems (Last Reviewed 07/13/20 @ 21:[address] Catalino Greenwood MD) Debility (Acute) Scrotal pain (Acute) Right groin pain (Acute) Right hip joint effusion (Acute) Recurrent umbilical hernia (Resolved) 79 year old male with below past medical history significant for recent lumbar laminectomy, admitted to hospital with intractable right groin/buttock pain secondary to right hip effusion, aspirated 07/17/2020, admitted to TCU with debility, here for rehabilitation, strengthening, prior to discharge home alone. Debility - PT/OT. Pain - Tylenol 1000MG Q6H PRN pain (1-3), Oxycodone 10MG Q4H PRN pain (4-10). Bowel - Miralax 17GM daily, Senna/colace 2 tablets BID, MOM 30ML daily PRN, Dulcolax 10MG PO daily PRN. Adult immunization - Administer Prevnar 13, Pneumovax 23, Fluzone, COVID19 vaccine as appropriate. DVT prophylaxis - Not necessary, Already on Eliquis. Right hip infection - Augmentin 875MG BID, Doxycycline 100MG BID thru 07/25/2020. Atrial fibrillation - Metoprolol 12.5MG BID, Eliquis 2.5MG BID. Vitamin C deficiency - Vitamin C 500MG daily. Vitamin B12 deficiency - B12 500MG daily. BPH - Finasteride 5MG daily, Tamsulosin 0.4MG daily. Rheumatoid Arthritis - MTX 20MG per week, Plaquenil 200MG BID, Folic acid 1.5MG daily. Appetite loss - Mirtazapine 7.5MG QHS. Nutrition - MVI daily. Migraine - Topamax 25MG BID. Insomnia - Trazodone 150MG QHS.
[2020-07-18] MEDS: oxyCODONE 5 MG Tablet 10 MG PO ×2 (14:42→19:46)
[2020-07-18] MEDS: Amox/Clavulanate 875 MG Tablet PO (17:07)
[2020-07-18] MEDS: Topiramate 25 MG Tablet PO (17:08)
[2020-07-18] MEDS: Doxycycline 100 MG CAPSULE PO (17:08)
[2020-07-18] MEDS: Tamsulosin HCl 0.4 MG Capsule PO (17:09)
[2020-07-18] MEDS: Senna/Docusate Sodium 1 Tablet 2 TABLET PO (17:09)
[2020-07-18] MEDS: Hydroxychloroquine 200 MG Tablet PO (17:09)
[2020-07-18 17:10] VITALS: PULSE 68
[2020-07-18] MEDS: Metoprolol Tartrate 25 MG Tablet 12.5 MG PO (17:10)
[2020-07-18] MEDS: APIXABAN 2.5 MG TABLET PO (17:10)
[2020-07-18] MEDS: Acetaminophen 500 MG Tablet 1000 MG PO (21:07)
[2020-07-18] MEDS: traZODone 50 MG Tablet 150 MG PO (21:09)
[2020-07-18] MEDS: Mirtazapine 15 MG Tablet 7.5 MG PO (21:09)
[2020-07-19] MEDS: oxyCODONE 5 MG Tablet 10 MG PO (01:16)
[2020-07-19 05:23] VITALS: BP 116/64; PULSE 89; RESP 18; TEMP 37.2; O2SAT 93
[2020-07-19] MEDS: Polyethylene Glycol 3350 17 GM PACKET PO (05:25)
[2020-07-19] MEDS: Acetaminophen 500 MG Tablet 1000 MG PO (05:27)
[2020-07-19] MEDS: Methotrexate 2.5 MG Tablet 20 MG PO (05:28)
[2020-07-19 05:29] VITALS: BP 116/64; PULSE 89
[2020-07-19] MEDS: Topiramate 25 MG Tablet PO ×2 (05:29→17:27)
[2020-07-19] MEDS: APIXABAN 2.5 MG TABLET PO ×2 (05:29→17:26)
[2020-07-19] MEDS: Doxycycline 100 MG CAPSULE PO ×2 (05:29→17:26)
[2020-07-19] MEDS: Metoprolol Tartrate 25 MG Tablet 12.5 MG PO ×2 (05:29→17:27)
[2020-07-19] MEDS: Senna/Docusate Sodium 1 Tablet 2 TABLET PO ×2 (05:30→17:26)
[2020-07-19] MEDS: Finasteride 5 MG Tablet PO (05:30)
[2020-07-19] MEDS: Ascorbic Acid 500 MG Tablet PO (05:31)
[2020-07-19] MEDS: Cyanocobalamin 500 MCG Tablet PO (05:31)
[2020-07-19 07:02] LABS: Absolute Neutrophil Count 4.7 X10^3/uL (2.0-7.7); Basophil# 0.03 X10^3/uL; Basophil% 0.4 % (0-1); Eosinophil# 0.15 X10^3/uL; Eosinophils% 2.2 % (0-5); Hematocrit 33.7 % (40-54); Hemoglobin 10.6 g/dL (13.0-16.5); Lymphocyte % 11.9 % (19-41); Mean Corp Hgb Conc 31.5 g/dL (32-36); Mean Corpuscular Hgb 29.6 pg (27.0-32.0); Mean Corpuscular Volume 94.1 fL (80-94); Mean Platelet Vol. 9.8 fl (6.2-12.0); Monocyte# 1.05 X10^3/uL; Monocyte% 15.6 % (0-10); NRBC Flagged by Analyzer 0 % (0-5); Neutrophil # 4.68 X10^3/uL (2.7-7.7); Neutrophil % 69.5 % (47-70); Platelet Count 206 K/mm3 (150-450); RBC Distribution Width SD 48.4 fl (35.1-43.9); Red Blood Count 3.58 M/mm3 (4.6-6.2); White Blood Count 6.7 K/mm3 (4.4-11.0)
[2020-07-19 07:29] LABS: Anion Gap 7 (5-15); BUN 12 mg/dL (7-18); BUN/Creat Ratio 17.7 RATIO (10-20); Calcium,Total 8.6 mg/dL (8.5-10.1); Chloride 103 mmol/L (98-107); Creatinine, Serum 0.68 mg/dL (0.70-1.30); EST Glomerular Filtration Rate 120 mL/min (>60); Est Glom Filt Rate - Afr Amer 146 mL/min (>60); Estimated Creatinine Clearance 49.79 ml/min; Glucose 109 mg/dL (74-106); Potassium 3.8 mmol/L (3.5-5.1); Sodium Level 136 mmol/L (136-145)
[2020-07-19] MEDS: Amox/Clavulanate 875 MG Tablet PO ×2 (08:40→17:25)
[2020-07-19] MEDS: Folic Acid 1 MG Tablet 1.5 MG PO (08:40)
[2020-07-19] MEDS: Hydroxychloroquine 200 MG Tablet PO ×2 (08:41→17:25)
[2020-07-19] MEDS: Multivitamins,Ther W-Minerals Tablet 1 TABLET PO (08:41)
[2020-07-19] MEDS: Tuberculin,Purif.prot.deriv. 50 TU/ML Vial 5 ML ID (09:32)
--- NOTE | 2020-07-19 09:46 | NURSING ---
Dr. Lebron notified for pt c/o of pain 03/07. Pt was upset we are not giving him IV morphine. Pt stated oxycodone is not helping his pain. Dr. Lebron entered new orders. Call light within reach and will continue to monitor pain level.
[2020-07-19 10:00] VITALS: PULSE 71; O2SAT 97
[2020-07-19] MEDS: oxyCODONE 5 MG Tablet 20 MG PO (11:13)
--- NOTE | 2020-07-19 12:29 | NURSING ---
Pt's pain reassessed from 20mg oxycodone, pt resting eyes closed, this nurse called pt's name a could times and eventually touched pt's foot before pt awoke. Pt has pinpoint pupils and having trouble keeping eyes open when pt was asked to rate his pain he rated it as a 8/10, reported to RN.
[2020-07-19] MEDS: Baclofen 10 MG Tablet PO ×2 (13:54→20:55)
[2020-07-19 13:58] LABS: Uric Acid 3.3 mg/dL (3.5-7.2)
[2020-07-19 14:10] VITALS: BP 100/64; PULSE 82; RESP 16; TEMP 37.2; O2SAT 95
[2020-07-19] MEDS: Tamsulosin HCl 0.4 MG Capsule PO (17:25)
[2020-07-19 17:27] VITALS: PULSE 82
[2020-07-19] MEDS: oxyCODONE 5 MG Tablet 15 MG PO ×2 (17:33→21:43)
[2020-07-19] MEDS: Mirtazapine 15 MG Tablet 7.5 MG PO (20:55)
[2020-07-19] MEDS: traZODone 50 MG Tablet 150 MG PO (23:37)
[2020-07-20] VITALS (9 sets, daily range): BP systolic 110–136; BP diastolic 62–70; PULSE 77–84; RESP 16–18; TEMP 37–37.4; O2SAT 88–99
[2020-07-20] MEDS: Cyanocobalamin 500 MCG Tablet PO (05:11)
[2020-07-20] MEDS: Doxycycline 100 MG CAPSULE PO ×2 (05:11→18:11)
[2020-07-20] MEDS: Baclofen 10 MG Tablet PO ×3 (05:12→21:31)
[2020-07-20] MEDS: Senna/Docusate Sodium 1 Tablet 2 TABLET PO ×2 (05:12→18:11)
[2020-07-20] MEDS: Metoprolol Tartrate 25 MG Tablet 12.5 MG PO ×2 (05:12→18:12)
[2020-07-20] MEDS: Finasteride 5 MG Tablet PO (05:12)
[2020-07-20] MEDS: Ascorbic Acid 500 MG Tablet PO (05:12)
[2020-07-20] MEDS: APIXABAN 2.5 MG TABLET PO ×2 (05:12→18:11)
[2020-07-20] MEDS: Topiramate 25 MG Tablet PO ×2 (05:12→18:11)
[2020-07-20] MEDS: oxyCODONE 5 MG Tablet 15 MG PO ×3 (05:12→14:49)
[2020-07-20] MEDS: Folic Acid 1 MG Tablet 1.5 MG PO (09:28)
[2020-07-20] MEDS: Amox/Clavulanate 875 MG Tablet PO ×2 (09:29→18:11)
[2020-07-20] MEDS: Hydroxychloroquine 200 MG Tablet PO ×2 (09:30→18:11)
[2020-07-20] MEDS: Multivitamins,Ther W-Minerals Tablet 1 TABLET PO (09:30)
--- NOTE | 2020-07-20 10:12 | NURSING ---
PT STATED PAIN WAS IN RIGHT SIDE AND THEN PROCEDURE WAS DONE AND FELT BETTER. NOW THE PAIN AND SWELLING IS IN MY LEFT GROIN,KNEE AND FOOT. THIS NURSE DOES REMEMBER HE WAS TREATED FOR GOUT ON LAST STAY ON TCU IN [place]. RN AWARE
--- NOTE | 2020-07-20 10:43 | NURSING ---
Notified Dr. Lebron that patient's left knee is swollen and pt c/o pain in entire left leg from groin down through leg. Received order for Medrol dose romy, order repeated back, will add order.
[2020-07-20] MEDS: MethylPREDNISolone DosePak 4 MG BOX PO ×3 (12:00→21:31)
--- NOTE | 2020-07-20 12:30 | PCM.PN.RX ---
<Erica Balbuena - Last Filed: 07/20/20 12:30> Progress Note - Pharmacy Subjective: TCU Admission Objective: Allergies No Known Allergies Allergy (Verified 07/13/20 18:47) Current Medications Generic Name Dose Route Start Last Admin Trade Name Claire PRN Reason Stop Dose Admin Acetaminophen 1,000 mg 07/18/20 14:50 07/19/20 05:27 Acetaminophen 500 Mg Tablet PO 1,000 mg Q6H PRN Administration Pain Score 1-3 Amoxicillin/Clavulanate Potassium 875 mg 07/18/20 17:00 07/20/20 09:29 Amox/Clavulanate 875 Mg Tablet PO 07/25/20 17:01 875 mg BIDCM [facility] Administration Apixaban 2.5 mg 07/18/20 18:00 07/20/20 05:12 Apixaban 2.5 Mg Tablet PO 2.5 mg BID [facility] Administration Ascorbic Acid 500 mg 07/19/20 06:00 07/20/20 05:12 Ascorbic Acid 500 Mg Tablet PO 500 mg DAILY [facility] Administration Baclofen 10 mg 07/19/20 14:00 07/20/20 05:12 Baclofen 10 Mg Tablet PO 10 mg TID [facility] Administration Bisacodyl 10 mg 07/18/20 14:49 Bisacodyl 5 Mg Tablet PO DAILY PRN Constipation Cyanocobalamin 500 mcg 07/19/20 06:00 07/20/20 05:11 Cyanocobalamin 500 Mcg Tablet PO 500 mcg DAILY [facility] Administration Doxycycline Monohydrate 100 mg 07/18/20 18:00 07/20/20 05:11 Doxycycline 100 Mg Capsule PO 07/25/20 18:01 100 mg BID [facility] Administration Finasteride 5 mg 07/19/20 06:00 07/20/20 05:12 Finasteride 5 Mg Tablet PO 5 mg DAILY [facility] Administration Folic Acid 1.5 mg 07/19/20 08:00 07/20/20 09:28 Folic Acid 1 Mg Tablet PO 1.5 mg DAILY@0800 [facility] Administration Hydroxychloroquine Sulfate 200 mg 07/18/20 17:00 07/20/20 09:30 Hydroxychloroquine 200 Mg Tablet PO 200 mg BIDCM [facility] Administration Magnesium Hydroxide 30 ml 07/18/20 14:49 Magnesium Hydroxide 30 Ml Udc PO DAILY PRN Constipation Methotrexate 20 mg 07/19/20 06:00 07/19/20 05:28 Methotrexate 2.5 Mg Tablet PO 20 mg Bui [facility] Administration Methylprednisolone 12 mg 07/20/20 12:00 07/20/20 12:00 Methylprednisolone Dosepak 4 Mg Box PO 07/25/20 04:59 12 mg 1200 [facility] Administration Taper Metoprolol Tartrate 12.5 mg 07/18/20 18:00 07/20/20 05:12 Metoprolol Tartrate 25 Mg Tablet PO 12.5 mg BID [facility] Administration Mirtazapine 7.5 mg 07/18/20 22:00 07/19/20 20:55 Mirtazapine 15 Mg Tablet PO 7.5 mg QHS [facility] Administration Multivitamins/Minerals 1 tablet 07/19/20 08:00 07/20/20 09:30 Multivitamins,Ther W-Minerals Tablet PO 1 tablet DAILY@0800 [facility] Administration Oxycodone HCl 15 mg 07/19/20 13:31 07/20/20 10:09 Oxycodone 5 Mg Tablet PO 15 mg Q4H PRN PRN Administration Pain Score 4-10 Polyethylene Glycol 17 gm 07/19/20 06:00 07/20/20 05:15 Polyethylene Glycol 3350 17 Gm Packet PO Not Given DAILY [facility] Senna/Docusate Sodium 2 tablet 07/18/20 18:00 07/20/20 05:12 Senna/Docusate Sodium 1 Tablet PO 2 tablet BID [facility] Administration Tamsulosin HCl 0.4 mg 07/18/20 17:30 07/19/20 17:25 Tamsulosin Hcl 0.4 Mg Capsule PO 0.4 mg DAILY@1730 [facility] Administration Topiramate 25 mg 07/18/20 18:00 07/20/20 05:12 Topiramate 25 Mg Tablet PO 25 mg BID [facility] Administration Trazodone HCl 150 mg 07/20/20 00:00 07/20/20 01:22 Trazodone 50 Mg Tablet PO Not Given 0000 [facility] Tuberculin PPD 5 tu 07/26/20 10:00 Tuberculin,Purif.Prot.Deriv. 50 Tu/Ml Vial ID 07/26/20 10:01 X1 ONE Problem List (Last Reviewed 07/13/20 @ 21:[address] Catalino Greenwood MD) Debility (Acute) Lumbar spinal stenosis (Chronic) Atrial fibrillation with rapid ventricular response (Chronic) Muscle spasm (Chronic) GERD (gastroesophageal reflux disease) (Chronic) Rheumatoid arthritis (Chronic) SVT (supraventricular tachycardia) (Chronic) Insomnia (Chronic) BPH (benign prostatic hyperplasia) (Chronic) Right groin pain (Acute) Right hip joint effusion (Acute) Appetite loss (Chronic) Vital Signs Temp Pulse Resp BP Pulse Ox 98.6 F 83 16 123/62 H 97 07/20/20 05:10 07/20/20 05:12 07/20/20 03:12 07/20/20 05:10 07/20/20 03:12 Oxygen Delivery Method Room Air Weight: 62.233 kg Body Mass Index (BMI) 24.3 Sodium 136 mmol/L (136-145) 07/19/20 06:24 Potassium 3.8 mmol/L (3.5-5.1) 07/19/20 06:24 Chloride 103 mmol/L (98-107) 07/19/20 06:24 Carbon Dioxide 26.0 mmol/L (21.0-32.0) 07/19/20 06:24 Anion Gap 7 (5-15) 07/19/20 06:24 BUN 12 mg/dL (7-18) 07/19/20 06:24 Creatinine 0.68 mg/dL (0.70-1.30) L 07/19/20 06:24 Est GFR (MDRD) Af Amer 146 mL/min (>60) 07/19/20 06:24 Est GFR (MDRD) Non-Af 120 mL/min (>60) 07/19/20 06:24 BUN/Creatinine Ratio 17.7 RATIO (10-20) 07/19/20 06:24 Glucose 109 mg/dL (74-106) H 07/19/20 06:24 Assessment/Plan: 1. Pain: acetaminophen 1000mg PO Q6H PRN pain (1-3), oxycodone 15mg PO Q4H PRN pain (4-10), and baclofen 10mg PO TID. Please continue to monitor for increased pain, PRN usage, constipation, and respiratory depression. 2. Right hip infection: amoxicillin/clavulanate 875/125 mg PO BID through 07/25/2020 and doxycycline 100mg PO BID through 07/25/2020. Please continue to monitor for worsening infection, GI side effects, and renal function. 3. Left knee swelling: Methylprednisolone 4mg PO dosepak. Please continue to monitor for increased swelling, BP (last 123/62 mmHg), and blood sugars. 4. Atrial fibrillation: metoprolol 12.5mg PO BID and apixaban 2.5mg PO BID. Please continue to monitor HR (last 83 bpm), BP (last 123/62 mmHg), H/H, and S/S of bleeding. 5. Rheumatoid arthritis: Hydroxychloroquine 200mg PO BIDCM, methotrexate 20mg PO weekly and folic acid 1.5mg PO daily. Please continue to monitor LFTs, serum creatinine (last 0.68 mg/dL), platelets (last 206 K/mm3), S/S of infection, and muscle strength. 6. BPH: tamsulosin 0.4mg PO daily and finasteride 5mg PO daily. Please continue to monitor for reductions of S/S of BPH and BP (last 123/62 mmHg). *7. Vitamin deficiencies/nutrition: ascorbic acid 500mg PO daily, cyanocobalamin 500mg PO daily, MVI PO daily. Please consider ordering a Vitamin B12 level. Thanks. Please continue to monitor for S/S of vitamin deficiencies. Psychotropic Medications: *1. Appetite loss: mirtazapine 7.5mg PO QHS. Please consider GDR by 12/2020 if clinically appropriate. Thanks. Please continue to monitor for changes in appetite, mental status, renal and hepatic function, and WBC (last 6.7 K/mm3). 2. Migraine: topiramate 25mg PO BID. Please continue to monitor for mental status changes, serum creatinine (last 0.68 mg/dL) and electrolytes. *3. Insomnia: trazodone 150mg PO @0000. Please consider GDR by 12/2020 if clinically appropriate. Thanks. Please continue to monitor for mental status changes, orthostatic hypotension and insomnia. Unnecessary Medications: None Bowel Regimen: Miralax 17gm PO daily, senna/docusate 2T PO BID, MOM 30mL PO daily PRN constipation, bisacodyl 10mg PO daily PRN constipation. Please continue to monitor for constipation and PRN usage. Date of Note:: 07/20/20 - Provider Comments Provider responsibility: Provider responsible to enter orders to implement recommendations <Yogesh Lebron Chi - Last Filed: 07/20/20 17:27> Progress Note - Pharmacy Subjective: [] Objective: Allergies No Known Allergies Allergy (Verified 07/13/20 18:47) Current Medications Generic Name Dose Route Start Last Admin Trade Name Claire PRN Reason Stop Dose Admin Acetaminophen 1,000 mg 07/18/20 14:50 07/19/20 05:27 Acetaminophen 500 Mg Tablet PO 1,000 mg Q6H PRN Administration Pain Score 1-3 Amoxicillin/Clavulanate Potassium 875 mg 07/18/20 17:00 07/20/20 09:29 Amox/Clavulanate 875 Mg Tablet PO 07/25/20 17:01 875 mg BIDCM [facility] Administration Apixaban 2.5 mg 07/18/20 18:00 07/20/20 05:12 Apixaban 2.5 Mg Tablet PO 2.5 mg BID [facility] Administration Ascorbic Acid 500 mg 07/19/20 06:00 07/20/20 05:12 Ascorbic Acid 500 Mg Tablet PO 500 mg DAILY [facility] Administration Baclofen 10 mg 07/19/20 14:00 07/20/20 13:29 Baclofen 10 Mg Tablet PO 10 mg TID [facility] Administration Bisacodyl 10 mg 07/18/20 14:49 Bisacodyl 5 Mg Tablet PO DAILY PRN Constipation Cyanocobalamin 500 mcg 07/19/20 06:00 07/20/20 05:11 Cyanocobalamin 500 Mcg Tablet PO 500 mcg DAILY [facility] Administration Doxycycline Monohydrate 100 mg 07/18/20 18:00 07/20/20 05:11 Doxycycline 100 Mg Capsule PO 07/25/20 18:01 100 mg BID [facility] Administration Finasteride 5 mg 07/19/20 06:00 07/20/20 05:12 Finasteride 5 Mg Tablet PO 5 mg DAILY [facility] Administration Folic Acid 1.5 mg 07/19/20 08:00 07/20/20 09:28 Folic Acid 1 Mg Tablet PO 1.5 mg DAILY@0800 [facility] Administration Hydroxychloroquine Sulfate 200 mg 07/18/20 17:00 07/20/20 09:30 Hydroxychloroquine 200 Mg Tablet PO 200 mg BIDCM [facility] Administration Magnesium Hydroxide 30 ml 07/18/20 14:49 Magnesium Hydroxide 30 Ml Udc PO DAILY PRN Constipation Methotrexate 20 mg 07/19/20 06:00 07/19/20 05:28 Methotrexate 2.5 Mg Tablet PO 20 mg Bui [facility] Administration Methylprednisolone 4 mg 07/20/20 12:00 07/20/20 12:00 Methylprednisolone Dosepak 4 Mg Box PO 07/25/20 04:59 12 mg 1700 [facility] Administration Taper Metoprolol Tartrate 12.5 mg 07/18/20 18:00 07/20/20 05:12 Metoprolol Tartrate 25 Mg Tablet PO 12.5 mg BID [facility] Administration Mirtazapine 7.5 mg 07/18/20 22:00 07/19/20 20:55 Mirtazapine 15 Mg Tablet PO 7.5 mg QHS [facility] Administration Multivitamins/Minerals 1 tablet 07/19/20 08:00 07/20/20 09:30 Multivitamins,Ther W-Minerals Tablet PO 1 tablet DAILY@0800 [facility] Administration Nutritional Formula (Lactose Free) 120 ml 07/20/20 17:00 Ensure Enlive 120 Ml Liquid PO 4X/DAY [facility] Oxycodone HCl 15 mg 07/19/20 13:31 07/20/20 14:49 Oxycodone 5 Mg Tablet PO 15 mg Q4H PRN PRN Administration Pain Score 4-10 Polyethylene Glycol 17 gm 07/19/20 06:00 07/20/20 05:15 Polyethylene Glycol 3350 17 Gm Packet PO Not Given DAILY [facility] Senna/Docusate Sodium 2 tablet 07/18/20 18:00 07/20/20 05:12 Senna/Docusate Sodium 1 Tablet PO 2 tablet BID [facility] Administration Tamsulosin HCl 0.4 mg 07/18/20 17:30 07/19/20 17:25 Tamsulosin Hcl 0.4 Mg Capsule PO 0.4 mg DAILY@1730 [facility] Administration Topiramate 25 mg 07/18/20 18:00 07/20/20 05:12 Topiramate 25 Mg Tablet PO 25 mg BID [facility] Administration Trazodone HCl 150 mg 07/20/20 00:00 07/20/20 01:22 Trazodone 50 Mg Tablet PO Not Given 0000 [facility] Tuberculin PPD 5 tu 07/26/20 10:00 Tuberculin,Purif.Prot.Deriv. 50 Tu/Ml Vial ID 07/26/20 10:01 X1 ONE Problem List (Last Reviewed 07/13/20 @ 21:[address] Catalino Greenwood MD) Debility (Acute) Lumbar spinal stenosis (Chronic) Atrial fibrillation with rapid ventricular response (Chronic) Muscle spasm (Chronic) GERD (gastroesophageal reflux disease) (Chronic) Rheumatoid arthritis (Chronic) SVT (supraventricular tachycardia) (Chronic) Insomnia (Chronic) BPH (benign prostatic hyperplasia) (Chronic) Right groin pain (Acute) Right hip joint effusion (Acute) Appetite loss (Chronic) Vital Signs Temp Pulse Resp BP Pulse Ox 99.3 F H 84 18 136/70 H 99 07/20/20 14:58 07/20/20 14:58 07/20/20 14:58 07/20/20 14:58 07/20/20 14:58 Oxygen Flow Rate (L/min) 2 Oxygen Delivery Method Nasal Cannula Weight: 62.2 kg Body Mass Index (BMI) 24.3 Sodium 136 mmol/L (136-145) 07/19/20 06:24 Potassium 3.8 mmol/L (3.5-5.1) 07/19/20 06:24 Chloride 103 mmol/L (98-107) 07/19/20 06:24 Carbon Dioxide 26.0 mmol/L (21.0-32.0) 07/19/20 06:24 Anion Gap 7 (5-15) 07/19/20 06:24 BUN 12 mg/dL (7-18) 07/19/20 06:24 Creatinine 0.68 mg/dL (0.70-1.30) L 07/19/20 06:24 Est GFR (MDRD) Af Amer 146 mL/min (>60) 07/19/20 06:24 Est GFR (MDRD) Non-Af 120 mL/min (>60) 07/19/20 06:24 BUN/Creatinine Ratio 17.7 RATIO (10-20) 07/19/20 06:24 Glucose 109 mg/dL (74-106) H 07/19/20 06:24 Assessment/Plan: Psychotropic Medications: Unnecessary Medications: Bowel Regimen: - Provider Comments Provider responsibility: Provider responsible to enter orders to implement recommendations Provider Comments to Recommendations by Pharmacy: Agree
--- NOTE | 2020-07-20 13:43 | NURSING ---
THIS NURSE IN TO PT ROOM FOR MED PASS AND FOUND PT LIPS AND SOLO HANDS AND WRISTS WERE BLUE. WOKE PT UP AND CHECKED OXYGEN AND WAS 88% ROOM AIR. CALLED RN TO ROOM AND APPLIED O2 AT 2L. PT OXYGEN CAME UP TO 97%. PT VERY EMOTIONAL,DID A LITTLE 1 ON 1 AND GAVE PT A WARM BLANKET DUE TO PT STATED HE WAS COLD. WILL CONTINUE TO MONITOR.
--- NOTE | 2020-07-20 14:07 | NURSING ---
PT 99% ON 2L. THE BLUE SKIN IN LIPS,AND SOLO HANDS ARE BETTER BUT STILL SOME BLUE TO THEM. WILL CONTINUE TO MONITOR.
--- NOTE | 2020-07-20 14:25 | PT ---
Pt very painful with all mobility. Pt c/o pain in LLE. When pt was on acute side of hospital, pt had pain in RLE with swelling. Today, pt is c/o pain in LLE and has swelling in L thigh and knee. Spoke with RN about pt c/o pain and pain is now in LLE instead of RLE.
[2020-07-20] MEDS: Tamsulosin HCl 0.4 MG Capsule PO (18:11)
--- NOTE | 2020-07-20 20:39 | NURSING ---
Daughter called in to get updates. Daughter is concerned that his memory is starting to decline. Daughter would like called no matter what with all updates. Will pass along to on coming nurses.
[2020-07-20] MEDS: Mirtazapine 15 MG Tablet 7.5 MG PO (21:31)
[2020-07-20] MEDS: Acetaminophen 500 MG Tablet 1000 MG PO (21:31)
[2020-07-20] MEDS: traZODone 50 MG Tablet 150 MG PO (23:56)
--- NOTE | 2020-07-21 01:36 | NURSING ---
Patient found to be drenched in sweat at this time. Patient alert and answering questions appropriately. Vitals all within normal limits. RN aware. Will continue to monitor.
--- NOTE | 2020-07-21 01:38 | NURSING ---
Message left for Dr burkett pt having night sweats past 2 nights
[2020-07-21 01:46] LABS: Bedside Glucose 131 mg/dL (70-110)
[2020-07-21 02:31] VITALS: BP 145/80; PULSE 90; RESP 14; TEMP 37.2; O2SAT 99
[2020-07-21] MEDS: Finasteride 5 MG Tablet PO (06:06)
[2020-07-21] MEDS: Doxycycline 100 MG CAPSULE PO ×2 (06:06→17:03)
[2020-07-21] MEDS: APIXABAN 2.5 MG TABLET PO ×2 (06:06→17:04)
[2020-07-21] MEDS: Topiramate 25 MG Tablet PO ×2 (06:06→17:07)
[2020-07-21] MEDS: Cyanocobalamin 500 MCG Tablet PO (06:06)
[2020-07-21 06:07] VITALS: BP 145/80; PULSE 90
[2020-07-21] MEDS: Ascorbic Acid 500 MG Tablet PO (06:07)
[2020-07-21] MEDS: Metoprolol Tartrate 25 MG Tablet 12.5 MG PO ×2 (06:07→17:04)
[2020-07-21] MEDS: Senna/Docusate Sodium 1 Tablet 2 TABLET PO ×2 (06:07→17:07)
[2020-07-21] MEDS: Menthol/Lanolin/Calamine/Znox 113 GM Tube 1 APPLIC TOPICAL ×2 (06:08→17:18)
[2020-07-21] MEDS: Nystatin Powder 15gm Bottle 1 APPLIC TOPICAL ×2 (06:08→17:10)
[2020-07-21] MEDS: Baclofen 10 MG Tablet PO ×3 (06:08→20:03)
[2020-07-21 06:42] VITALS: O2SAT 95
[2020-07-21] MEDS: Multivitamins,Ther W-Minerals Tablet 1 TABLET PO (08:53)
[2020-07-21] MEDS: Hydroxychloroquine 200 MG Tablet PO ×2 (08:53→17:01)
[2020-07-21] MEDS: Amox/Clavulanate 875 MG Tablet PO ×2 (08:53→17:00)
[2020-07-21] MEDS: Folic Acid 1 MG Tablet 1.5 MG PO (08:53)
[2020-07-21] MEDS: MethylPREDNISolone DosePak 4 MG BOX PO ×4 (08:54→22:39)
[2020-07-21] MEDS: oxyCODONE 5 MG Tablet 15 MG PO ×3 (08:57→22:38)
[2020-07-21 12:36] VITALS: BP 103/53; PULSE 76; RESP 18; TEMP 36.3; O2SAT 94
[2020-07-21] MEDS: Acetaminophen 500 MG Tablet 1000 MG PO (12:45)
[2020-07-21 13:50] VITALS: PULSE 80; RESP 18; O2SAT 96
--- NOTE | 2020-07-21 15:20 | NURSING ---
CALLED DAUGHTER TO UPDATE ON PT AND NO ANSWER. LEFT MESSAGE.
[2020-07-21] MEDS: Tamsulosin HCl 0.4 MG Capsule PO (17:01)
[2020-07-21 17:04] VITALS: BP 103/53; PULSE 76
--- NOTE | 2020-07-21 18:54 | NURSING ---
daughter called back and this nurse updated her on pt.
[2020-07-21] MEDS: Mirtazapine 15 MG Tablet 7.5 MG PO (20:03)
[2020-07-22] MEDS: traZODone 50 MG Tablet 150 MG PO
[2020-07-22] MEDS: oxyCODONE 5 MG Tablet 15 MG PO ×3 (02:40→16:59)
[2020-07-22] MEDS: Menthol/Lanolin/Calamine/Znox 113 GM Tube 1 APPLIC TOPICAL ×2 (02:42→17:07)
[2020-07-22] MEDS: Polyethylene Glycol 3350 17 GM PACKET PO (02:42)
[2020-07-22] MEDS: Nystatin Powder 15gm Bottle 1 APPLIC TOPICAL ×2 (02:43→17:08)
[2020-07-22 02:55] VITALS: BP 128/58; PULSE 78; RESP 16; TEMP 36.8; O2SAT 97
[2020-07-22 06:49] VITALS: BP 128/58; PULSE 78
[2020-07-22] MEDS: Ascorbic Acid 500 MG Tablet PO (06:49)
[2020-07-22] MEDS: Metoprolol Tartrate 25 MG Tablet 12.5 MG PO ×2 (06:49→17:00)
[2020-07-22] MEDS: Cyanocobalamin 500 MCG Tablet PO (06:49)
[2020-07-22] MEDS: Senna/Docusate Sodium 1 Tablet 2 TABLET PO ×2 (06:49→17:05)
[2020-07-22] MEDS: Baclofen 10 MG Tablet PO ×3 (06:49→22:22)
[2020-07-22] MEDS: Doxycycline 100 MG CAPSULE PO ×2 (06:49→17:00)
[2020-07-22] MEDS: Finasteride 5 MG Tablet PO (06:49)
[2020-07-22] MEDS: APIXABAN 2.5 MG TABLET PO ×2 (06:49→17:06)
[2020-07-22] MEDS: Topiramate 25 MG Tablet PO ×2 (06:52→17:05)
[2020-07-22 07:29] VITALS: O2SAT 92
[2020-07-22] MEDS: Hydroxychloroquine 200 MG Tablet PO ×2 (08:45→17:02)
[2020-07-22] MEDS: Folic Acid 1 MG Tablet 1.5 MG PO (08:45)
[2020-07-22] MEDS: MethylPREDNISolone DosePak 4 MG BOX PO ×4 (08:46→22:23)
[2020-07-22] MEDS: Amox/Clavulanate 875 MG Tablet PO ×2 (08:46→17:03)
[2020-07-22] MEDS: Multivitamins,Ther W-Minerals Tablet 1 TABLET PO (08:46)
[2020-07-22] MEDS: Pantoprazole Sodium 40 MG Tablet PO (08:52)
--- NOTE | 2020-07-22 11:11 | PCA ---
Called and spoke with Brittny Knox from [employer] to initiate a prior auth for MRI of left hip, left pelvis and left knee. Faxed clinical information to as requested. . Was advised it can take up to 2 days for a decision. [employer] phone number is . Nursing updated
--- NOTE | 2020-07-22 12:26 | CASEMGMT ---
Social Work IDT met with patient, dtr and brother via conference call for care plan meeting. Discussed patient's progress in therapy and nursing. Pt concerned about discharging home too soon as there is pain. aware and addressing pt's nursing concerns. Pt is out of isolation 08/01. Explained O insurance with NRD 07/23 and continued stay is not guaranteed. The goal is for pt to return home alone with 3 steps to enter. SW to continue to follow. Susan Miller, HOSPICE CLINICAL MANAGER LIVESTOCK BUYER
--- NOTE | 2020-07-22 12:39 | NURSING ---
Dr. Lebron in to see pt today per pt request d/t pain unrelieved by medication, N.O. LLE doppler, MRI left hip, pelvis, and knee, colchicine, Protonix. Pre cert started for MRI
[2020-07-22 13:34] VITALS: BP 102/60; PULSE 70; RESP 14; TEMP 36.7; O2SAT 95
[2020-07-22 17:00] VITALS: PULSE 70
[2020-07-22] MEDS: Tamsulosin HCl 0.4 MG Capsule PO (17:00)
--- NOTE | 2020-07-22 18:28 | NURSING ---
Preliminary doppler report, reported to Dr. Lebron
[2020-07-22] MEDS: Mirtazapine 15 MG Tablet 7.5 MG PO (22:22)
[2020-07-23] MEDS: traZODone 50 MG Tablet 150 MG PO (00:06)
[2020-07-23 05:00] VITALS: BP 140/65; PULSE 70; RESP 18; TEMP 36.8; O2SAT 98
[2020-07-23] MEDS: Senna/Docusate Sodium 1 Tablet 2 TABLET PO (06:45)
[2020-07-23] MEDS: Menthol/Lanolin/Calamine/Znox 113 GM Tube 1 APPLIC TOPICAL ×2 (06:45→18:12)
[2020-07-23 06:46] VITALS: BP 140/65; PULSE 70
[2020-07-23] MEDS: Pantoprazole Sodium 40 MG Tablet PO (06:46)
[2020-07-23] MEDS: Polyethylene Glycol 3350 17 GM PACKET PO (06:46)
[2020-07-23] MEDS: Baclofen 10 MG Tablet PO ×3 (06:46→22:34)
[2020-07-23] MEDS: APIXABAN 2.5 MG TABLET PO ×2 (06:46→18:19)
[2020-07-23] MEDS: Cyanocobalamin 500 MCG Tablet PO (06:46)
[2020-07-23] MEDS: Ascorbic Acid 500 MG Tablet PO (06:46)
[2020-07-23] MEDS: Metoprolol Tartrate 25 MG Tablet 12.5 MG PO ×2 (06:46→18:19)
[2020-07-23] MEDS: Doxycycline 100 MG CAPSULE PO ×2 (06:47→18:21)
[2020-07-23] MEDS: Finasteride 5 MG Tablet PO (06:47)
[2020-07-23] MEDS: Topiramate 25 MG Tablet PO ×2 (06:48→18:24)
[2020-07-23] MEDS: Nystatin Powder 15gm Bottle 1 APPLIC TOPICAL ×2 (06:48→18:13)
[2020-07-23 07:14] VITALS: O2SAT 98
[2020-07-23] MEDS: Amox/Clavulanate 875 MG Tablet PO ×2 (09:22→18:21)
[2020-07-23] MEDS: Folic Acid 1 MG Tablet 1.5 MG PO (09:22)
[2020-07-23] MEDS: Multivitamins,Ther W-Minerals Tablet 1 TABLET PO (09:23)
[2020-07-23] MEDS: Hydroxychloroquine 200 MG Tablet PO ×2 (09:23→18:21)
[2020-07-23] MEDS: MethylPREDNISolone DosePak 4 MG BOX PO ×3 (09:23→22:35)
--- NOTE | 2020-07-23 10:07 | NURSING ---
Addendum entered by Meghana Rodrigues 07/24/20 08:10: Just received phone call from Dhiraj at [facility] that the MRI of left hip, knee and pelvis were denied. updated RN Original Note: MRI of pelvis denied by insurance co d/t recent MRI of pelvis bilat. Lt hip & knee MRI pending authorization. just gave doppler results that were done to insurance co. awaiting approval via fax or phone call.
[2020-07-23 10:50] VITALS: PULSE 74; RESP 18; O2SAT 97
--- NOTE | 2020-07-23 13:01 | MDS.RN ---
Completed pain interview for shazia 07/25/20.
[2020-07-23] MEDS: oxyCODONE 5 MG Tablet 15 MG PO ×3 (13:41→22:32)
[2020-07-23 14:07] VITALS: BP 123/67; PULSE 74; RESP 18; TEMP 37; O2SAT 97
--- NOTE | 2020-07-23 15:54 | NURSING ---
called and updated pt daughter.
--- NOTE | 2020-07-23 18:00 | RAD_ITS ---
STUDY: X-RAY - LEFT KNEE REASON FOR EXAM: Male, 79 years old. Pain, swelling. TECHNIQUE: 4 view(s) of the knee. COMPARISON: None. FINDINGS: Normal visualized distal femur. Normal visualized proximal tibia and fibula. Normal proximal tibiofibular articulation. There is no demonstrated fracture. There is mild degenerative arthrosis of the medial femorotibial compartment. Normal lateral femorotibial compartment. There is mild degenerative arthrosis of the patellofemoral articulation. There is a moderate volume joint effusion. There are atherosclerotic calcifications. RAD/Knee 4 or More Views IMPRESSION: Degenerative arthrosis. Moderate size joint effusion Electronically Signed: Phong Ho MD at 23:13 EST , Service support ,
[2020-07-23 18:19] VITALS: BP 123/67; PULSE 74
[2020-07-23] MEDS: Tamsulosin HCl 0.4 MG Capsule PO (18:22)
[2020-07-23] MEDS: Mirtazapine 15 MG Tablet 7.5 MG PO (22:34)
[2020-07-24] MEDS: traZODone 50 MG Tablet 150 MG PO (00:19)
[2020-07-24 05:00] VITALS: BP 116/59; PULSE 67; RESP 18; TEMP 36.8; O2SAT 96
[2020-07-24] MEDS: Topiramate 25 MG Tablet PO ×2 (05:17→17:59)
[2020-07-24] MEDS: APIXABAN 2.5 MG TABLET PO ×2 (05:17→17:57)
[2020-07-24] MEDS: Cyanocobalamin 500 MCG Tablet PO (05:17)
[2020-07-24] MEDS: Menthol/Lanolin/Calamine/Znox 113 GM Tube 1 APPLIC TOPICAL ×2 (05:17→18:02)
[2020-07-24] MEDS: Finasteride 5 MG Tablet PO (05:17)
[2020-07-24 05:18] VITALS: BP 116/59; PULSE 67
[2020-07-24] MEDS: Metoprolol Tartrate 25 MG Tablet 12.5 MG PO ×2 (05:18→18:00)
[2020-07-24] MEDS: Pantoprazole Sodium 40 MG Tablet PO (05:18)
[2020-07-24] MEDS: Ascorbic Acid 500 MG Tablet PO (05:18)
[2020-07-24] MEDS: Baclofen 10 MG Tablet PO ×3 (05:19→21:23)
[2020-07-24] MEDS: Doxycycline 100 MG CAPSULE PO ×2 (05:19→18:00)
[2020-07-24] MEDS: Nystatin Powder 15gm Bottle 1 APPLIC TOPICAL ×2 (05:19→18:03)
[2020-07-24] MEDS: oxyCODONE 5 MG Tablet 15 MG PO ×2 (05:22→13:43)
[2020-07-24] MEDS: Multivitamins,Ther W-Minerals Tablet 1 TABLET PO (08:37)
[2020-07-24] MEDS: MethylPREDNISolone DosePak 4 MG BOX PO ×2 (08:37→21:27)
[2020-07-24] MEDS: Folic Acid 1 MG Tablet 1.5 MG PO (08:38)
[2020-07-24] MEDS: Hydroxychloroquine 200 MG Tablet PO ×2 (08:38→17:57)
[2020-07-24] MEDS: Amox/Clavulanate 875 MG Tablet PO ×2 (08:38→18:00)
--- NOTE | 2020-07-24 08:58 | CASEMGMT ---
Social Work BIMS and PHQ-9 completed for MDS assessment. Susan Miller, BEHAVIORAL HEALTH SPECIALIST PHOTOGRAPHIC ENGINEER
[2020-07-24 11:23] VITALS: O2SAT 95
[2020-07-24 14:28] VITALS: BP 98/55; PULSE 70; RESP 14; TEMP 36.7; O2SAT 98
[2020-07-24] MEDS: Tamsulosin HCl 0.4 MG Capsule PO (17:58)
[2020-07-24 18:00] VITALS: PULSE 70
[2020-07-24] MEDS: Mirtazapine 15 MG Tablet 7.5 MG PO (21:25)
[2020-07-24] MEDS: Acetaminophen 500 MG Tablet 1000 MG PO (21:29)
[2020-07-24 21:34] VITALS: PULSE 70; RESP 16; O2SAT 96
--- NOTE | 2020-07-24 22:51 | PCA ---
Pt declined to wash up, change gown or brush teeth, stating he did not feel well and had changed his gown earlier today. em SENIOR TERADATA DEVELOPER
[2020-07-25 05:00] VITALS: BP 109/54; PULSE 64; RESP 18; TEMP 36.9; O2SAT 95
[2020-07-25 05:22] VITALS: BP 109/54; PULSE 64
[2020-07-25] MEDS: Doxycycline 100 MG CAPSULE PO ×2 (05:22→17:03)
[2020-07-25] MEDS: Baclofen 10 MG Tablet PO ×3 (05:22→21:26)
[2020-07-25] MEDS: Pantoprazole Sodium 40 MG Tablet PO (05:22)
[2020-07-25] MEDS: Cyanocobalamin 500 MCG Tablet PO (05:22)
[2020-07-25] MEDS: Metoprolol Tartrate 25 MG Tablet 12.5 MG PO ×2 (05:22→17:02)
[2020-07-25] MEDS: Finasteride 5 MG Tablet PO (05:23)
[2020-07-25] MEDS: Topiramate 25 MG Tablet PO ×2 (05:23→17:05)
[2020-07-25] MEDS: APIXABAN 2.5 MG TABLET PO ×2 (05:23→17:01)
[2020-07-25] MEDS: Ascorbic Acid 500 MG Tablet PO (05:23)
[2020-07-25] MEDS: Menthol/Lanolin/Calamine/Znox 113 GM Tube 1 APPLIC TOPICAL ×2 (05:32→17:04)
[2020-07-25] MEDS: Nystatin Powder 15gm Bottle 1 APPLIC TOPICAL ×2 (05:33→17:04)
[2020-07-25 06:50] VITALS: O2SAT 95
[2020-07-25] MEDS: Hydroxychloroquine 200 MG Tablet PO ×2 (09:33→17:00)
[2020-07-25] MEDS: Multivitamins,Ther W-Minerals Tablet 1 TABLET PO (09:33)
[2020-07-25] MEDS: Amox/Clavulanate 875 MG Tablet PO ×2 (09:34→17:03)
[2020-07-25] MEDS: Folic Acid 1 MG Tablet 1.5 MG PO (09:34)
[2020-07-25] MEDS: Acetaminophen 500 MG Tablet 1000 MG PO ×2 (09:37→16:58)
[2020-07-25 10:00] VITALS: RESP 18; O2SAT 97
[2020-07-25 14:24] VITALS: BP 108/60; PULSE 51; RESP 18; TEMP 36.6; O2SAT 99
[2020-07-25] MEDS: Tamsulosin HCl 0.4 MG Capsule PO (17:00)
[2020-07-25 17:02] VITALS: PULSE 65
[2020-07-25] MEDS: Mirtazapine 15 MG Tablet 7.5 MG PO (21:26)
[2020-07-25] MEDS: traZODone 50 MG Tablet 150 MG PO ×2 (23:07)
[2020-07-26 05:00] VITALS: BP 111/56; PULSE 73; RESP 16; TEMP 37; O2SAT 99
[2020-07-26] MEDS: Finasteride 5 MG Tablet PO (05:17)
[2020-07-26] MEDS: Methotrexate 2.5 MG Tablet 20 MG PO (05:17)
[2020-07-26] MEDS: Topiramate 25 MG Tablet PO ×2 (05:18→17:48)
[2020-07-26 05:19] VITALS: BP 111/56; PULSE 73
[2020-07-26] MEDS: Metoprolol Tartrate 25 MG Tablet 12.5 MG PO ×2 (05:19→17:48)
[2020-07-26] MEDS: APIXABAN 2.5 MG TABLET PO ×2 (05:20→17:48)
[2020-07-26] MEDS: Cyanocobalamin 500 MCG Tablet PO (05:20)
[2020-07-26] MEDS: Pantoprazole Sodium 40 MG Tablet PO (05:21)
[2020-07-26] MEDS: Baclofen 10 MG Tablet PO ×3 (05:21→21:41)
[2020-07-26] MEDS: Ascorbic Acid 500 MG Tablet PO (05:25)
[2020-07-26] MEDS: Acetaminophen 500 MG Tablet 1000 MG PO ×2 (05:25→13:06)
[2020-07-26] MEDS: Menthol/Lanolin/Calamine/Znox 113 GM Tube 1 APPLIC TOPICAL ×2 (05:27→17:48)
[2020-07-26] MEDS: Nystatin Powder 15gm Bottle 1 APPLIC TOPICAL ×2 (05:28→17:48)
[2020-07-26 06:44] LABS: Absolute Lymphocyte Count 2.29 X10^3/uL (0.83-4.51); Absolute Neutrophil Count 3.4 X10^3/uL (2.0-7.7); Basophil# 0.06 X10^3/uL; Basophil% 0.9 % (0-1); Eosinophil# 0.23 X10^3/uL; Eosinophils% 3.5 % (0-5); Hemoglobin 13.8 g/dL (13.0-16.5); Lymphocyte # 2.29 X10^3/ul (4.0); Lymphocyte % 35.2 % (19-41); Mean Corp Hgb Conc 30.7 g/dL (32-36); Mean Corpuscular Hgb 29.4 pg (27.0-32.0); Mean Corpuscular Volume 95.7 fL (80-94); Mean Platelet Vol. 9.6 fl (6.2-12.0); Monocyte# 0.49 X10^3/uL; Monocyte% 7.5 % (0-10); NRBC Flagged by Analyzer 0 % (0-5); Neutrophil % 52.4 % (47-70); Platelet Count 412 K/mm3 (150-450); RBC Distribution Width CV 14.9 % (11.6-14.6); RBC Distribution Width SD 52.3 fl (35.1-43.9); White Blood Count 6.5 K/mm3 (4.4-11.0)
[2020-07-26 07:20] LABS: Anion Gap 6 (5-15); BUN 22 mg/dL (7-18); BUN/Creat Ratio 25.3 RATIO (10-20); Calcium,Total 9.1 mg/dL (8.5-10.1); Chloride 108 mmol/L (98-107); Creatinine, Serum 0.87 mg/dL (0.70-1.30); EST Glomerular Filtration Rate 90 mL/min (>60); Est Glom Filt Rate - Afr Amer 109 mL/min (>60); Estimated Creatinine Clearance 57.23 ml/min; Glucose 111 mg/dL (74-106); Potassium 3.4 mmol/L (3.5-5.1); Sodium Level 142 mmol/L (136-145)
[2020-07-26] MEDS: Multivitamins,Ther W-Minerals Tablet 1 TABLET PO (08:58)
[2020-07-26] MEDS: Hydroxychloroquine 200 MG Tablet PO ×2 (08:58→17:48)
[2020-07-26] MEDS: Folic Acid 1 MG Tablet 1.5 MG PO (08:58)
[2020-07-26] MEDS: Potassium Chloride Oral Tablet 10 MEQ PO (08:59)
--- NOTE | 2020-07-26 09:00 | NURSING ---
dr cummings aware of low K+ 3.4, new order potassium 10meq daily. pt updated.
--- NOTE | 2020-07-26 13:44 | NURSING ---
pt reports continues with pain from lt groin, into thigh, & down to post knee. ice applied, tylenol given for 8/10 pain. pt declined anything stronger. left message for dr cummings to review doppler & knee xray results.
[2020-07-26] MEDS: oxyCODONE 5 MG Tablet 15 MG PO ×2 (14:28→21:57)
[2020-07-26 15:36] VITALS: BP 100/60; PULSE 76; RESP 16; TEMP 36.7; O2SAT 96
[2020-07-26 17:48] VITALS: PULSE 76
[2020-07-26] MEDS: Tamsulosin HCl 0.4 MG Capsule PO (17:48)
[2020-07-26] MEDS: Mirtazapine 15 MG Tablet 7.5 MG PO (21:40)
[2020-07-26 21:58] VITALS: PULSE 74; RESP 16; O2SAT 95
[2020-07-26] MEDS: traZODone 50 MG Tablet 150 MG PO (23:05)
[2020-07-27 05:00] VITALS: BP 111/59; PULSE 78; RESP 16; TEMP 37.1; O2SAT 95
[2020-07-27] MEDS: Pantoprazole Sodium 40 MG Tablet PO (05:09)
[2020-07-27] MEDS: oxyCODONE 5 MG Tablet 15 MG PO ×2 (05:09→18:14)
[2020-07-27] MEDS: Topiramate 25 MG Tablet PO ×2 (05:10→18:11)
[2020-07-27 05:11] VITALS: BP 111/59; PULSE 78
[2020-07-27] MEDS: Cyanocobalamin 500 MCG Tablet PO (05:11)
[2020-07-27] MEDS: APIXABAN 2.5 MG TABLET PO ×2 (05:11→18:10)
[2020-07-27] MEDS: Metoprolol Tartrate 25 MG Tablet 12.5 MG PO ×2 (05:11→18:10)
[2020-07-27] MEDS: Ascorbic Acid 500 MG Tablet PO (05:11)
[2020-07-27] MEDS: Finasteride 5 MG Tablet PO (05:11)
[2020-07-27] MEDS: Baclofen 10 MG Tablet PO ×3 (05:15→22:11)
[2020-07-27] MEDS: Nystatin Powder 15gm Bottle 1 APPLIC TOPICAL ×2 (05:18→18:12)
[2020-07-27] MEDS: Menthol/Lanolin/Calamine/Znox 113 GM Tube 1 APPLIC TOPICAL ×2 (05:18→18:11)
[2020-07-27] MEDS: Hydroxychloroquine 200 MG Tablet PO ×2 (08:31→18:08)
[2020-07-27] MEDS: Multivitamins,Ther W-Minerals Tablet 1 TABLET PO (08:31)
[2020-07-27] MEDS: Potassium Chloride Oral Tablet 10 MEQ PO (08:31)
[2020-07-27] MEDS: Folic Acid 1 MG Tablet 1.5 MG PO (08:32)
[2020-07-27 10:00] VITALS: PULSE 74; O2SAT 97
--- NOTE | 2020-07-27 10:13 | PCA ---
unable to schedule an appt with office regarding left knee pain/effusion, due to an unpaid balance. Patient does have an appt scheduled August 10 with [facility] regarding hip/groin pain. ELROY updated
[2020-07-27 14:27] VITALS: BP 104/53; PULSE 68; RESP 14; TEMP 36.1; O2SAT 99
[2020-07-27] MEDS: Tamsulosin HCl 0.4 MG Capsule PO (18:09)
[2020-07-27 18:10] VITALS: PULSE 68
[2020-07-27] MEDS: Senna/Docusate Sodium 1 Tablet 2 TABLET PO (18:12)
[2020-07-27] MEDS: Mirtazapine 15 MG Tablet 7.5 MG PO (22:11)
[2020-07-27] MEDS: Acetaminophen 500 MG Tablet 1000 MG PO (22:13)
[2020-07-27] MEDS: traZODone 50 MG Tablet 150 MG PO (23:00)
[2020-07-28 05:00] VITALS: BP 116/59; PULSE 89; RESP 18; TEMP 36.8; O2SAT 96
[2020-07-28 06:24] LABS: Anion Gap 5 (5-15); BUN 20 mg/dL (7-18); BUN/Creat Ratio 24.3 RATIO (10-20); Calcium,Total 8.7 mg/dL (8.5-10.1); Chloride 109 mmol/L (98-107); Creatinine, Serum 0.82 mg/dL (0.70-1.30); EST Glomerular Filtration Rate 96 mL/min (>60); Est Glom Filt Rate - Afr Amer 116 mL/min (>60); Estimated Creatinine Clearance 60.72 ml/min; Glucose 96 mg/dL (74-106); Potassium 3.9 mmol/L (3.5-5.1); Sodium Level 141 mmol/L (136-145)
[2020-07-28] MEDS: Baclofen 10 MG Tablet PO ×3 (07:03→21:29)
[2020-07-28] MEDS: Senna/Docusate Sodium 1 Tablet 2 TABLET PO (07:03)
[2020-07-28] MEDS: Pantoprazole Sodium 40 MG Tablet PO (07:03)
[2020-07-28 07:04] VITALS: BP 116/59; PULSE 89
[2020-07-28] MEDS: Topiramate 25 MG Tablet PO ×2 (07:04→18:20)
[2020-07-28] MEDS: Cyanocobalamin 500 MCG Tablet PO (07:04)
[2020-07-28] MEDS: Nystatin Powder 15gm Bottle 1 APPLIC TOPICAL ×2 (07:04→18:19)
[2020-07-28] MEDS: Menthol/Lanolin/Calamine/Znox 113 GM Tube 1 APPLIC TOPICAL ×2 (07:04→18:22)
[2020-07-28] MEDS: Metoprolol Tartrate 25 MG Tablet 12.5 MG PO ×2 (07:04→18:18)
[2020-07-28] MEDS: Ascorbic Acid 500 MG Tablet PO (07:04)
[2020-07-28] MEDS: APIXABAN 2.5 MG TABLET PO ×2 (07:04→18:18)
[2020-07-28] MEDS: Finasteride 5 MG Tablet PO (07:04)
[2020-07-28] MEDS: Potassium Chloride Oral Tablet 10 MEQ PO (09:18)
[2020-07-28] MEDS: Folic Acid 1 MG Tablet 1.5 MG PO (09:19)
[2020-07-28] MEDS: Multivitamins,Ther W-Minerals Tablet 1 TABLET PO (09:19)
[2020-07-28] MEDS: Hydroxychloroquine 200 MG Tablet PO ×2 (09:20→18:17)
[2020-07-28] MEDS: oxyCODONE 5 MG Tablet 15 MG PO ×3 (09:22→22:40)
[2020-07-28 14:13] VITALS: BP 94/59; PULSE 59; RESP 16; TEMP 36.4; O2SAT 95
[2020-07-28 15:07] VITALS: BP 102/52; PULSE 62
--- NOTE | 2020-07-28 16:47 | CASEMGMT ---
Social Work Spoke with pt about DC plans as insurance update is 3/ and anticipating LCD. Pt is okay with going home if he doesn't have a choice. Explained appeal rights. Pt declined. Pt would like [facility] PT/OT, no DME. Dtr can transport. Will await final outcome from insurance. Susan Miller, RESOURCE MANAGER MANAGER MATERIAL
[2020-07-28] MEDS: Tamsulosin HCl 0.4 MG Capsule PO (18:17)
[2020-07-28 18:18] VITALS: BP 102/52; PULSE 62
[2020-07-28] MEDS: Mirtazapine 15 MG Tablet 7.5 MG PO (21:29)
[2020-07-28 21:35] VITALS: PULSE 72; RESP 16; O2SAT 96
[2020-07-28] MEDS: traZODone 50 MG Tablet 150 MG PO (23:05)
[2020-07-29 05:00] VITALS: BP 120/63; PULSE 78; RESP 16; TEMP 36.9; O2SAT 96
[2020-07-29] MEDS: Baclofen 10 MG Tablet PO ×3 (06:06→21:55)
[2020-07-29] MEDS: Topiramate 25 MG Tablet PO ×2 (06:06→17:35)
[2020-07-29] MEDS: oxyCODONE 5 MG Tablet 15 MG PO ×3 (06:07→21:52)
[2020-07-29] MEDS: Finasteride 5 MG Tablet PO (06:07)
[2020-07-29] MEDS: APIXABAN 2.5 MG TABLET PO ×2 (06:07→17:33)
[2020-07-29 06:08] VITALS: BP 120/63; PULSE 78
[2020-07-29] MEDS: Metoprolol Tartrate 25 MG Tablet 12.5 MG PO ×2 (06:08→17:33)
[2020-07-29] MEDS: Menthol/Lanolin/Calamine/Znox 113 GM Tube 1 APPLIC TOPICAL ×2 (06:11→17:36)
[2020-07-29] MEDS: Nystatin Powder 15gm Bottle 1 APPLIC TOPICAL ×2 (06:13→17:35)
[2020-07-29] MEDS: Pantoprazole Sodium 40 MG Tablet PO (06:48)
[2020-07-29] MEDS: Ascorbic Acid 500 MG Tablet PO (06:48)
[2020-07-29] MEDS: Cyanocobalamin 500 MCG Tablet PO (06:49)
[2020-07-29] MEDS: Potassium Chloride Oral Tablet 10 MEQ PO (08:06)
[2020-07-29] MEDS: Multivitamins,Ther W-Minerals Tablet 1 TABLET PO (08:06)
[2020-07-29] MEDS: Hydroxychloroquine 200 MG Tablet PO ×2 (08:06→17:32)
[2020-07-29] MEDS: Folic Acid 1 MG Tablet 1.5 MG PO (08:06)
[2020-07-29 10:00] VITALS: PULSE 69; O2SAT 96
--- NOTE | 2020-07-29 12:27 | MDS.RN ---
Information for the mds was obtained from review of the clinical record, interview of resident, staff, and direct observation of resident's care.
[2020-07-29 15:01] VITALS: BP 102/52; PULSE 71; RESP 16; TEMP 37; O2SAT 97
[2020-07-29 17:33] VITALS: PULSE 71
[2020-07-29] MEDS: Tamsulosin HCl 0.4 MG Capsule PO (17:33)
[2020-07-29] MEDS: Senna/Docusate Sodium 1 Tablet 2 TABLET PO (17:34)
[2020-07-29] MEDS: Mirtazapine 15 MG Tablet 7.5 MG PO (21:56)
[2020-07-29] MEDS: traZODone 50 MG Tablet 150 MG PO (23:11)
--- NOTE | 2020-07-30 00:56 | NURSING ---
Patient states, I would like to speak with social work lecturer about being discharged home. I don't feel safe going home with this much pain before having the cyst drain from the left posterior knee. This nurse will call and leave a voicemail for the social work lecturer. Rn made aware.
[2020-07-30 05:00] VITALS: BP 106/67; PULSE 73; RESP 16; TEMP 36.9; O2SAT 96
[2020-07-30] MEDS: oxyCODONE 5 MG Tablet 15 MG PO ×3 (05:58→20:02)
[2020-07-30] MEDS: Cyanocobalamin 500 MCG Tablet PO (05:59)
[2020-07-30] MEDS: Pantoprazole Sodium 40 MG Tablet PO (05:59)
[2020-07-30] MEDS: Topiramate 25 MG Tablet PO ×2 (05:59→18:37)
[2020-07-30] MEDS: Finasteride 5 MG Tablet PO (05:59)
[2020-07-30] MEDS: Baclofen 10 MG Tablet PO ×3 (05:59→21:42)
[2020-07-30 06:00] VITALS: BP 106/67; PULSE 73
[2020-07-30] MEDS: APIXABAN 2.5 MG TABLET PO ×2 (06:00→18:36)
[2020-07-30] MEDS: Metoprolol Tartrate 25 MG Tablet 12.5 MG PO ×2 (06:00→18:36)
[2020-07-30] MEDS: Ascorbic Acid 500 MG Tablet PO (06:01)
[2020-07-30] MEDS: Nystatin Powder 15gm Bottle 1 APPLIC TOPICAL ×2 (06:02→18:37)
[2020-07-30] MEDS: Menthol/Lanolin/Calamine/Znox 113 GM Tube 1 APPLIC TOPICAL ×2 (06:03→18:36)
[2020-07-30] MEDS: Senna/Docusate Sodium 1 Tablet 2 TABLET PO (06:05)
[2020-07-30] MEDS: Folic Acid 1 MG Tablet 1.5 MG PO (09:38)
[2020-07-30] MEDS: Potassium Chloride Oral Tablet 10 MEQ PO (09:39)
[2020-07-30] MEDS: Multivitamins,Ther W-Minerals Tablet 1 TABLET PO (09:39)
[2020-07-30] MEDS: Hydroxychloroquine 200 MG Tablet PO ×2 (09:39→18:35)
--- NOTE | 2020-07-30 12:11 | CASEMGMT ---
Social Work CAMPAIGN DEVELOPER spoke with pt about concern with pain in left knee and wanting cyst drained. Explained that is the Dr and SW cannot dictate that outcome. CAMPAIGN DEVELOPER contacted [facility] to inquire about visit to pt on floor to drain cyst or get earlier appt. [facility] left message - SW returned call. Ortho Dr cannot come to TCU but does have next available appt on 08/03 at [address] Del Toro to drain. Secured that appt. Spoke with pt and explained moving appt to 08/03. Pt agreeable, but continued to reiterate he does not feel safe to return home until cyst is drained and pain alleviated. Validated concern. Explained options: once insurance issues LCD, pt has the right to appeal - explained appeal rights involving possibly paying privately; pt can pay privately until he goes to appt 08/03; or pt can DC home as indicated by insurance, encouraged pt to inquire if dtr can stay with him or he can go to dtr's until cyst is drained and he feels safe. Explained SW will order [facility] PT/OT/SN and nurse will continue to monitor knee pain and cyst. Pt stated he cannot pay privately and denied appealed; reluctantly stated I will just have to go home then. Explained SW will notify pt as soon as insurance outcome is received. Pt expressed understanding and repeated options for clarity to this worker. Will continue to follow. SANTOS TempletonW
[2020-07-30 14:03] VITALS: BP 106/53; PULSE 84; RESP 18; TEMP 37.4; O2SAT 98
--- NOTE | 2020-07-30 16:56 | NURSING ---
CALLED DAUGHTER AND UPDATED HER AND ANSWERED QUESTIONS SHE HAD.
[2020-07-30] MEDS: Tamsulosin HCl 0.4 MG Capsule PO (18:35)
[2020-07-30 18:36] VITALS: BP 106/53; PULSE 84
[2020-07-30 19:49] VITALS: PULSE 76; RESP 16; O2SAT 95
[2020-07-30] MEDS: Mirtazapine 15 MG Tablet 7.5 MG PO (21:42)
[2020-07-31] MEDS: traZODone 50 MG Tablet 150 MG PO ×2 (00:12→22:51)
[2020-07-31] MEDS: oxyCODONE 5 MG Tablet 15 MG PO ×4 (04:19→21:31)
[2020-07-31] MEDS: Baclofen 10 MG Tablet PO ×3 (04:19→22:51)
[2020-07-31] MEDS: APIXABAN 2.5 MG TABLET PO ×2 (04:19→17:33)
[2020-07-31] MEDS: Topiramate 25 MG Tablet PO ×2 (04:19→17:34)
[2020-07-31] MEDS: Cyanocobalamin 500 MCG Tablet PO (04:19)
[2020-07-31] MEDS: Ascorbic Acid 500 MG Tablet PO (04:19)
[2020-07-31 04:20] VITALS: PULSE 76
[2020-07-31] MEDS: Metoprolol Tartrate 25 MG Tablet 12.5 MG PO ×2 (04:20→17:33)
[2020-07-31] MEDS: Finasteride 5 MG Tablet PO (04:20)
[2020-07-31] MEDS: Senna/Docusate Sodium 1 Tablet 2 TABLET PO ×2 (04:20→17:34)
[2020-07-31] MEDS: Menthol/Lanolin/Calamine/Znox 113 GM Tube 1 APPLIC TOPICAL ×2 (04:26→17:36)
[2020-07-31 04:27] VITALS: BP 110/55; PULSE 76; RESP 16; TEMP 36.7; O2SAT 95
[2020-07-31] MEDS: Nystatin Powder 15gm Bottle 1 APPLIC TOPICAL ×2 (04:27→17:35)
[2020-07-31] MEDS: Multivitamins,Ther W-Minerals Tablet 1 TABLET PO (08:48)
[2020-07-31] MEDS: Hydroxychloroquine 200 MG Tablet PO ×2 (08:48→16:28)
[2020-07-31] MEDS: Folic Acid 1 MG Tablet 1.5 MG PO (08:49)
[2020-07-31] MEDS: Potassium Chloride Oral Tablet 10 MEQ PO (08:49)
--- NOTE | 2020-07-31 10:00 | CASEMGMT ---
Social Work Insurance approved additional days with NRD 08/04 and anticipating LCD. Spoke with patient about insurance outcome. Pt is very pleased and happy he can get his cyst drained and return to TCU for further therapy and nursing monitoring. Spoke with dtr to explain above information. Dtr stated she can transport pt to appointment. Dtr inquired about pt's progress in therapy. Explained pt is [id number] for all ADLs, ambulating 40-50 ft with FWW. Acknowledged pt did express concern about going home and not being ready but IDT agreed he would be safe to return home alone. Dtr appreciative of the information as he was not telling her he could do those things and that well. Dtr acknowledged his anxiety and is happy that he can get the cyst drained, have a few days out of isolation to work on steps prior to DC home. Explained SW will order [facility] PT/OT/SN that will assist with transition home. Dtr very appreciative of SW assistance and information. Will continue to follow. Susan Miller, DRIVER QUICK MIXER OPERATOR
[2020-07-31 13:46] VITALS: BP 99/58; PULSE 78; RESP 13; TEMP 36.3; O2SAT 93
[2020-07-31] MEDS: Tamsulosin HCl 0.4 MG Capsule PO (16:31)
[2020-07-31 17:33] VITALS: PULSE 78
[2020-07-31] MEDS: Mirtazapine 15 MG Tablet 7.5 MG PO (22:51)
[2020-07-31] MEDS: Acetaminophen 500 MG Tablet 1000 MG PO (22:54)
[2020-07-31] MEDS: Bisacodyl 5 MG Tablet 10 MG PO (22:54)
[2020-08-01] MEDS: oxyCODONE 5 MG Tablet 15 MG PO ×4 (02:21→21:20)
[2020-08-01 03:15] VITALS: BP 102/57; PULSE 77; RESP 16; TEMP 36.6; O2SAT 95
[2020-08-01 06:40] VITALS: PULSE 72
[2020-08-01] MEDS: Metoprolol Tartrate 25 MG Tablet 12.5 MG PO ×2 (06:40→17:38)
[2020-08-01] MEDS: Menthol/Lanolin/Calamine/Znox 113 GM Tube 1 APPLIC TOPICAL ×2 (06:40→17:39)
[2020-08-01] MEDS: Ascorbic Acid 500 MG Tablet PO (06:41)
[2020-08-01] MEDS: Finasteride 5 MG Tablet PO (06:41)
[2020-08-01] MEDS: Senna/Docusate Sodium 1 Tablet 2 TABLET PO (06:42)
[2020-08-01] MEDS: APIXABAN 2.5 MG TABLET PO ×2 (06:42→17:38)
[2020-08-01] MEDS: Cyanocobalamin 500 MCG Tablet PO (06:42)
[2020-08-01] MEDS: Baclofen 10 MG Tablet PO ×3 (06:42→21:19)
[2020-08-01] MEDS: Topiramate 25 MG Tablet PO ×2 (06:47→17:42)
[2020-08-01] MEDS: Polyethylene Glycol 3350 17 GM PACKET PO (06:47)
[2020-08-01] MEDS: Nystatin Powder 15gm Bottle 1 APPLIC TOPICAL ×2 (06:48→17:40)
[2020-08-01] MEDS: Folic Acid 1 MG Tablet 1.5 MG PO (08:51)
[2020-08-01] MEDS: Multivitamins,Ther W-Minerals Tablet 1 TABLET PO (08:52)
[2020-08-01] MEDS: Potassium Chloride Oral Tablet 10 MEQ PO (08:52)
[2020-08-01] MEDS: Hydroxychloroquine 200 MG Tablet PO ×2 (08:53→17:39)
--- NOTE | 2020-08-01 12:41 | NURSING ---
pt refusing therapy stating he feels nauseated. pt just had x large bm and did not eat breakfast. complains of 10/10 pain in knee and can barley walk. prn pain med given earlier. offered jello and asked pt to order lunch. pt stated he would and took the jello. rn aware
[2020-08-01 15:29] VITALS: BP 126/64; PULSE 99; RESP 18; TEMP 38.2; O2SAT 95
[2020-08-01 17:35] VITALS: TEMP 37.5
[2020-08-01 17:38] VITALS: BP 126/64; PULSE 99
[2020-08-01] MEDS: Tamsulosin HCl 0.4 MG Capsule PO (17:38)
[2020-08-01] MEDS: Acetaminophen 500 MG Tablet 1000 MG PO (17:45)
[2020-08-01] MEDS: Mirtazapine 15 MG Tablet 7.5 MG PO (21:19)
[2020-08-01] MEDS: traZODone 50 MG Tablet 150 MG PO (23:17)
[2020-08-02 05:00] VITALS: BP 117/61; PULSE 107; RESP 18; TEMP 36.8; O2SAT 96
[2020-08-02] MEDS: Menthol/Lanolin/Calamine/Znox 113 GM Tube 1 APPLIC TOPICAL (05:56)
[2020-08-02 05:57] VITALS: BP 117/61; PULSE 107
[2020-08-02] MEDS: Topiramate 25 MG Tablet PO (05:57)
[2020-08-02] MEDS: Methotrexate 2.5 MG Tablet 20 MG PO (05:57)
[2020-08-02] MEDS: Metoprolol Tartrate 25 MG Tablet 12.5 MG PO (05:57)
[2020-08-02] MEDS: Polyethylene Glycol 3350 17 GM PACKET PO (05:57)
[2020-08-02] MEDS: Senna/Docusate Sodium 1 Tablet 2 TABLET PO (05:57)
[2020-08-02] MEDS: APIXABAN 2.5 MG TABLET PO (05:57)
[2020-08-02] MEDS: Finasteride 5 MG Tablet PO (05:58)
[2020-08-02] MEDS: Ascorbic Acid 500 MG Tablet PO (05:58)
[2020-08-02] MEDS: Nystatin Powder 15gm Bottle 1 APPLIC TOPICAL (05:58)
[2020-08-02] MEDS: Cyanocobalamin 500 MCG Tablet PO (05:58)
[2020-08-02] MEDS: Baclofen 10 MG Tablet PO ×2 (06:01→14:16)
[2020-08-02] MEDS: oxyCODONE 5 MG Tablet 15 MG PO ×2 (06:04→10:56)
[2020-08-02 07:31] LABS: Absolute Lymphocyte Count 1.11 X10^3/uL (0.83-4.51); Absolute Neutrophil Count 7.6 X10^3/uL (2.0-7.7); Basophil# 0.02 X10^3/uL; Basophil% 0.2 % (0-1); Eosinophil# 0.15 X10^3/uL; Eosinophils% 1.4 % (0-5); Hematocrit 34.2 % (40-54); Hemoglobin 11.1 g/dL (13.0-16.5); Lymphocyte # 1.11 X10^3/ul (4.0); Lymphocyte % 10.7 % (19-41); Mean Corp Hgb Conc 32.5 g/dL (32-36); Mean Corpuscular Hgb 30.2 pg (27.0-32.0); Mean Corpuscular Volume 92.9 fL (80-94); Mean Platelet Vol. 9.6 fl (6.2-12.0); Monocyte# 1.45 X10^3/uL; NRBC Flagged by Analyzer 0 % (0-5); Neutrophil # 7.59 X10^3/uL (2.7-7.7); Neutrophil % 73.4 % (47-70); Platelet Count 215 K/mm3 (150-450); RBC Distribution Width CV 15.2 % (11.6-14.6); RBC Distribution Width SD 51.4 fl (35.1-43.9); Red Blood Count 3.68 M/mm3 (4.6-6.2); White Blood Count 10.4 K/mm3 (4.4-11.0)
[2020-08-02 07:54] LABS: Anion Gap 4 (5-15); BUN 13 mg/dL (7-18); BUN/Creat Ratio 15.7 RATIO (10-20); Calcium,Total 8.7 mg/dL (8.5-10.1); Chloride 103 mmol/L (98-107); Creatinine, Serum 0.83 mg/dL (0.70-1.30); EST Glomerular Filtration Rate 96 mL/min (>60); Est Glom Filt Rate - Afr Amer 116 mL/min (>60); Estimated Creatinine Clearance 58.34 ml/min; Glucose 145 mg/dL (74-106); Potassium 3.5 mmol/L (3.5-5.1); Sodium Level 136 mmol/L (136-145)
[2020-08-02] MEDS: Hydroxychloroquine 200 MG Tablet PO (08:36)
[2020-08-02] MEDS: Multivitamins,Ther W-Minerals Tablet 1 TABLET PO (08:36)
[2020-08-02] MEDS: Potassium Chloride Oral Tablet 10 MEQ PO (08:37)
[2020-08-02] MEDS: Folic Acid 1 MG Tablet 1.5 MG PO (08:37)
[2020-08-02 10:00] VITALS: PULSE 93; RESP 18; O2SAT 96
[2020-08-02 14:17] VITALS: BP 129/69; PULSE 114; RESP 18; TEMP 37.5; O2SAT 99
[2020-08-02] MEDS: Acetaminophen 500 MG Tablet 1000 MG PO (14:20)
[2020-08-02 14:27] VITALS: BP 132/85; PULSE 113; RESP 18; TEMP 39.2; O2SAT 95
--- NOTE | 2020-08-02 14:29 | NURSING ---
this nurse in pt room and pt skin red and pt moaning from pain. prn oxy given earlier for pain 03/07. pt still saying pain 03/07. felt pt fore head and pt felt hot. temp taken oral,102.6. vitals done, prn Tylenol given. pt also having trouble walking to bathroom due to weakness and pain,using bsc. reported to rn. will continue to monitor.
[2020-08-02 15:28] VITALS: TEMP 38.4
--- NOTE | 2020-08-02 15:37 | NURSING ---
dr cummings updated on pt fever and vitals. new order for labs, urine, blood cultures, covid and resp panel.
[2020-08-02 15:54] LABS: Mucous, Urine 0 SEEN /hpf (<or=2+); Red Blood Cells-Urine 0 SEEN /hpf (0-5); Squamous Epithelial Cells - UA 0 SEEN /hpf (0-5); White Blood Cells 0 SEEN /hpf (0-5)
[2020-08-02 15:55] LABS: Color, Urine Yellow (Yellow); Glucose, Dipstick Normal (Normal); Ketone-Dipstick Negative (Negative); Leukocyte Esterase-Dipstick Negative /ul (Negative); Nitrite-Dipstick Negative (Negative); Occult Blood-Urine Negative /ul (Negative); Protein-Dipstick 15 mg/dl (Negative); Specific Gravity, Urine 1.015 (1.002-1.030); Urine Bilirubin Dipstick Negative (Negative); Urine Clarity Sl. Cloudy (Clear); Urine Urobilinogen Normal (Normal)
[2020-08-02 16:02] LABS: Absolute Lymphocyte Count 1.03 X10^3/uL (0.83-4.51); Absolute Neutrophil Count 11.1 X10^3/uL (2.0-7.7); Basophil# 0.03 X10^3/uL; Basophil% 0.2 % (0-1); Eosinophil# 0.11 X10^3/uL; Eosinophils% 0.8 % (0-5); Hematocrit 37.2 % (40-54); Hemoglobin 12.2 g/dL (13.0-16.5); Lymphocyte # 1.03 X10^3/ul (4.0); Lymphocyte % 7.2 % (19-41); Mean Corp Hgb Conc 32.8 g/dL (32-36); Mean Corpuscular Hgb 30.4 pg (27.0-32.0); Mean Corpuscular Volume 92.8 fL (80-94); Mean Platelet Vol. 9.6 fl (6.2-12.0); Monocyte# 1.86 X10^3/uL; Monocyte% 13.1 % (0-10); NRBC Flagged by Analyzer 0 % (0-5); Neutrophil # 11.14 X10^3/uL (2.7-7.7); Neutrophil % 78.3 % (47-70); POSITIVE DIFFERENTIAL YES; Platelet Count 235 K/mm3 (150-450); RBC Distribution Width CV 15.3 % (11.6-14.6); RBC Distribution Width SD 52.3 fl (35.1-43.9); Red Blood Count 4.01 M/mm3 (4.6-6.2); White Blood Count 14.2 K/mm3 (4.4-11.0)
[2020-08-02 16:03] LABS: Amorphous Sediment 2+; Bacteria 1+ /hpf (None Seen)
[2020-08-02 16:04] LABS: Differential Indicated SCAN CRITERIA MET
[2020-08-02 16:17] LABS: Anion Gap 7 (5-15); BUN 12 mg/dL (7-18); BUN/Creat Ratio 15.5 RATIO (10-20); Calcium,Total 8.9 mg/dL (8.5-10.1); Chloride 99 mmol/L (98-107); Creatinine, Serum 0.77 mg/dL (0.70-1.30); EST Glomerular Filtration Rate 104 mL/min (>60); Est Glom Filt Rate - Afr Amer 125 mL/min (>60); Estimated Creatinine Clearance 48.42 ml/min; Glucose 124 mg/dL (74-106); Potassium 3.6 mmol/L (3.5-5.1); Sodium Level 133 mmol/L (136-145)
--- NOTE | 2020-08-02 16:34 | NURSING ---
CALLED FAMILY TO UPDATE. GOT ANSWER MACHINE AND LEFT MESSAGE.
[2020-08-02 16:38] LABS: Differential Comment SCANNED
--- NOTE | 2020-08-02 17:09 | NURSING ---
PT DAUGHTER CALLED BACK AND THIS NURSE UPDATED HER.
--- NOTE | 2020-08-02 17:28 | NURSING ---
dr cummings reviewed pts labs, UA and requesting that pt be sent to ER for Evaluation for possible septic hip or knee. report called to ER.
--- NOTE | 2020-08-02 17:29 | NURSING ---
called daughter to let her know pt was being sent to the er.
--- NOTE | 2020-08-03 17:42 | DCINST_ITS ---
- Discharge Diagnoses Current Active Problems: Current Active and Chronic Problems (Last Reviewed 08/02/20 @ 21:[address] Catalino Greenwood MD) Debility (Acute) Lumbar spinal stenosis (Chronic) Atrial fibrillation with rapid ventricular response (Chronic) Muscle spasm (Chronic) GERD (gastroesophageal reflux disease) (Chronic) Rheumatoid arthritis (Chronic) SVT (supraventricular tachycardia) (Chronic) Insomnia (Chronic) BPH (benign prostatic hyperplasia) (Chronic) Right groin pain (Acute) Right hip joint effusion (Acute) Appetite loss (Chronic) You will use the following diet at home:: No restrictions, Regular Your food should be the consistency of: Regular Your liquids should be the consistency of: Regular/Thin Discharge Activity: Return to Normal Activity, May Shower, Use Crutches Weight Bearing Status: Weight bearing as tolerated Call your doctor if you observe: Fever of 101 or Higher, Inability to urinate, Inability to have a bowel movement, Shortness of breath, Chest pain, Unc ontrolled pain Allergies/Adverse Reactions: Allergies No Known Allergies Allergy (Verified 08/02/20 17:43) Medications to take at Discharge Hydroxychloroquine [Plaquenil] 200 mg PO BIDCM 10/09/14 Trazodone HCl 150 mg PO QHS 09/22/17 Finasteride [Proscar] 5 mg PO DAILY 12/10/18 methotrexate sodium 2.5 mg tablet 20 mg PO JONES 01/29/19 ascorbic acid (vitamin C) 500 mg chewable tablet 500 mg PO DAILY tab 01/30/19 golimumab 12.5 mg/mL intravenous solution 135 mg IV [id number] ml 01/30/19 fuxcsoro-yngskcbg-agttl acid 400 mcg-vit K 20 mcg-lycop 300 mcg tablet 1 tab PO DAILY 04/06/20 Apixaban [Eliquis] 2.5 mg PO BID #60 tab 06/01/20 Aspirin [Aspirin, Baby] 81 mg PO DAILY@0800 07/13/20 Cyanocobalamin (Vitamin B-12) [Vitamin B-12] 500 mcg PO DAILY 07/13/20 Topiramate [Topamax] 25 mg PO BID 07/13/20 Metoprolol Tartrate [Lopressor (beta santiago)] 12.5 mg PO BID 07/18/20 Mirtazapine [Remeron] 7.5 mg PO QHS 07/18/20 Polyethylene Glycol 3350 [Miralax] 17 gm PO DAILY 07/18/20 Senna/Docusate Sodium [Senokot-S] 2 tab PO BID 07/18/20 Tamsulosin HCl [Flomax] 0.4 mg PO DAILY@1730 07/18/20 Acetaminophen [Tylenol Extra Strength] 1,000 mg PO Q6H PRN PRN 08/02/20 Baclofen [Lioresal] 10 mg PO TID 08/02/20 Bisacodyl [Dulcolax] 10 mg PO DAILY PRN PRN 08/02/20 Folic Acid 1.5 mg PO DAILY 08/02/20 Magnesium Hydroxide [Milk Of Magnesia] 30 ml PO DAILY PRN PRN 08/02/20 Menthol/Lanolin/Calamine/Znox [Calmoseptine Ointment] 1 applic TOPICAL BID 08/02/20 Nystatin Powder [Mycostatin Powder] 1 applic TOPICAL BID 08/02/20 Oxycodone [Oxyir] 15 mg PO Q4H PRN PRN 08/02/20 Potassium Chloride Oral Tablet [K-Dur] 10 meq PO DAILY 08/02/20 Primary Care Physician: Gloria Hazel MD [Primary Care Provider] - Please follow up with your Primary Care Physician in: 1 week. Test Results: Test results from this visit will be discussed in further detail at your follow- up appointment, if applicable. Please Follow Up With: Gloria Hazel MD Please Follow Up With: Molina Nava PA When: 2 Weeks Please Follow Up With: Dr. Alfaro When: f/u from spinal surgery Proposed Discharge Date: 08/03/20
--- NOTE | 2020-08-03 17:44 | DS.PCM_ITS ---
Discharge Date and Diagnosis - Problem List Patient Problems: Active and Suspected Problems (Last Reviewed 08/02/20 @ 21:[address] Catalino Greenwood MD) Debility (Acute) Right groin pain (Acute) Right hip joint effusion (Acute) Date of Admission: 08/02/20 Date of Discharge: 08/03/20 - Primary Discharge Diagnosis Acute Problems: Active Problems (Last Reviewed 08/02/20 @ 21:[address] Catalino Greenwood MD) Debility (Acute) Right groin pain (Acute) Right hip joint effusion (Acute) - Secondary Discharge Diagnosis Chronic Problems: Chronic Problems (Last Reviewed 08/02/20 @ 21:[address] Catalino Greenwood MD) Atrial fibrillation (Chronic) Lumbar spinal stenosis (Chronic) Atrial fibrillation with rapid ventricular response (Chronic) Muscle spasm (Chronic) GERD (gastroesophageal reflux disease) (Chronic) Rheumatoid arthritis (Chronic) SVT (supraventricular tachycardia) (Chronic) Insomnia (Chronic) BPH (benign prostatic hyperplasia) (Chronic) Appetite loss (Chronic) Abnormal EKG (Chronic) Abnormal echocardiogram (Chronic) Left ventricular hypokinesis (Chronic) Leg pain, bilateral (Chronic) Edema (Chronic) Hospital Course and Treatment Operations: None Procedures: None Summary of Care Provided: The patient is a 79 year old Male with below past medical history significant fo r recent lumbar laminectomy, admitted to hospital with intractable right groin/buttock pain secondary to right hip effusion, aspirated 07/17/2020, admitted to TCU with debility, here for rehabilitation, strengthening, prior to discharge home alone. 08/02/2020 Resident with fever near 103, WBC 14, UA negative, blood cultures sent, urine culture sent, concern with septic left hip, septic left knee. Discharge to [facility] for evaluation, admission to hospital. Patient Problems: Active and Suspected Problems (Last Reviewed 08/02/20 @ 21:[address] Catalino Greenwood MD) Debility (Acute) Right groin pain (Acute) Right hip joint effusion (Acute) - Physical Exam Vitals/I&O's: Vital Signs Temp Pulse Resp BP Pulse Ox 101.2 F H 113 H 18 132/85 H 95 08/02/20 15:28 08/02/20 14:27 08/02/20 14:27 08/02/20 14:27 08/02/20 14:27 Oxygen Flow Rate (L/min) 1.5 Oxygen Delivery Method Room Air Weight: 55.338 kg Body Mass Index (BMI) 24.3 Intake and Output for Last 24 Hours 08/01/20 08/02/20 08/03/20 23:59 23:59 23:59 Intake Total 360 / 360 240 / 240 Output Total 950 / 950 400 / 400 Balance -590 / -590 -160 / -160 Microbiology Past 72 Hours 08/02/20 15:40 Urine Catheter - Catheter Urine Culture - Preliminary Culture exhibits no growth. Laboratory Results 08/02/20 15:45: COVID-19 (JUDI) Not Detected Discharge Diet: No Restrictions Discharge Activity: Return to Normal Activity, May Shower, Use Crutches Weight Bearing Status: Weight bearing as tolerated Call your doctor if you observe: Fever of 101 or Higher, Inability to urinate, Inability to have a bowel movement, Shortness of breath, Chest pain, Uncontrolled pain Home Medications: Medications to take at Discharge Hydroxychloroquine [Plaquenil] 200 mg PO BIDCM 10/09/14 Trazodone HCl 150 mg PO QHS 09/22/17 Finasteride [Proscar] 5 mg PO DAILY 12/10/18 methotrexate sodium 2.5 mg tablet 20 mg PO JONES 01/29/19 ascorbic acid (vitamin C) 500 mg chewable tablet 500 mg PO DAILY tab 01/30/19 golimumab 12.5 mg/mL intravenous solution 135 mg IV [id number] ml 01/30/19 ctnychoa-uhwurtsd-byzas acid 400 mcg-vit K 20 mcg-lycop 300 mcg tablet 1 tab PO DAILY 04/06/20 Apixaban [Eliquis] 2.5 mg PO BID #60 tab 06/01/20 Aspirin [Aspirin, Baby] 81 mg PO DAILY@0800 07/13/20 Cyanocobalamin (Vitamin B-12) [Vitamin B-12] 500 mcg PO DAILY 07/13/20 Topiramate [Topamax] 25 mg PO BID 07/13/20 Metoprolol Tartrate [Lopressor (beta santiago)] 12.5 mg PO BID 07/18/20 Mirtazapine [Remeron] 7.5 mg PO QHS 07/18/20 Polyethylene Glycol 3350 [Miralax] 17 gm PO DAILY 07/18/20 Senna/Docusate Sodium [Senokot-S] 2 tab PO BID 07/18/20 Tamsulosin HCl [Flomax] 0.4 mg PO DAILY@1730 07/18/20 Acetaminophen [Tylenol Extra Strength] 1,000 mg PO Q6H PRN PRN 08/02/20 Baclofen [Lioresal] 10 mg PO TID 08/02/20 Bisacodyl [Dulcolax] 10 mg PO DAILY PRN PRN 08/02/20 Folic Acid 1.5 mg PO DAILY 08/02/20 Magnesium Hydroxide [Milk Of Magnesia] 30 ml PO DAILY PRN PRN 08/02/20 Menthol/Lanolin/Calamine/Znox [Calmoseptine Ointment] 1 applic TOPICAL BID 08/02/20 Nystatin Powder [Mycostatin Powder] 1 applic TOPICAL BID 08/02/20 Oxycodone [Oxyir] 15 mg PO Q4H PRN PRN 08/02/20 Potassium Chloride Oral Tablet [K-Dur] 10 meq PO DAILY 08/02/20 Primary Care Physician: Gloria Hazel MD [Primary Care Provider] - Please follow up with your Primary Care Physician in: 1 week. Please Follow Up With: Gloria Hazel MD Please Follow Up With: Molina Nava PA When: 2 Weeks Please Follow Up With: Dr. Alfaro When: f/u from spinal surgery Disposition: Acute care Hospital Minutes spent on discharge:: 30 Patient Condition:: Guarded Medical Necessity - Tobacco Use Smoking Status: Former smoker Tobacco Use: Non-smoker Meaningful Use Info Meaningful Use Diagnoses (Choose all that apply): None applicable
[2020-08-04 10:13] LABS: Pathologist Review Reviewed
== END 2020-08-02 17:29 | disposition short-term general hospital (02) | DRG 565 ==
PROVIDERS: Admitting Provider Family Medicine Geriatric Medicine; PCP Family Medicine; Visit Provider Family Medicine Geriatric Medicine
DX: M25.451 Effusion, right hip (principal); I48.20 Chronic atrial fibrillation, unspecified; I47.1 Supraventricular tachycardia; G43.909 Migraine, unspecified, not intractable, without status migrainosus; N40.0 Benign prostatic hyperplasia without lower urinary tract symptoms; M06.9 Rheumatoid arthritis, unspecified; Z98.890 Other specified postprocedural states; K21.9 Gastro-esophageal reflux disease without esophagitis; Z87.891 Personal history of nicotine dependence; R50.9 Fever, unspecified
CPT/HCPCS: 36415; 73564; 80048; 81001; 82962; 84550; 85025; 87040; 87086; 87635; 97110; 97116; 97163; 97166; 97530; 97535; J8610; U0002; U0003

== ENCOUNTER → 2020-07-22 09:07 | Outpatient (CLI) | payer MEDICARE, SELFPAY ==
[2020-07-18 13:55] VITALS: BMI 24.3
--- NOTE | 2020-07-22 09:12 | VDLE_ITS ---
Reason For Study: Swelling Procedure LEFT Exam performed portable in patient room. GSV is normal. A preliminary report was called and/or faxed CFV is compressible, spontaneous, phasic, to Patients RN. competent, and demonstrates normal augmentation. FV is compressible, spontaneous, phasic, competent and demonstrates normal augmentation. POP V is compressible, spontaneous, phasic, competent and demonstrates normal augmentation. T/P Trunk is compressible. PTV is compressible. LT PerV is compressible. Lt GastrocV is dilated and non compressible consistent with acute DVT Hypoechoic, non vascular structure noted Lt Pop Fossa measuring 1.15cm x 2.59cm Lt HUMAN RESOURCES OPERATIONS SPECIALIST causing calcific shadowing; difficult to visualize both PT veins. Interpretation Summary Acute deep vein thrombosis is noted in the left gastrocnemius vein. The remainder of the left lower extremity deep venous system is patent and compressible. The left posterior tibial veins were not well visualized due to acoustic shadowing from the left posterior tibial artery. Valvular competence appears intact within the proximal deep venous system on the left . The left great saphenous vein appears patent and compressible segmentally. A non-vascular, hypoechoic structure is noted in the left popliteal space, measuring 1.15 cm x 2.59 cm. This probably represents a popliteal cyst. Clinical correlation is advised. Ordering Physician: Yogesh Lebron Referring Physician: Gloria Hazel Performed By: Deanna Leonardo, MAINOR, RVT
== END ==
LOC: CVS 09:08
PROVIDERS: PCP Family Medicine; Referring Provider Family Medicine Geriatric Medicine; Visit Provider Family Medicine Geriatric Medicine
DX: R22.42 Localized swelling, mass and lump, left lower limb (principal)
CPT/HCPCS: 93971

== ENCOUNTER 2020-08-02 17:36 | Inpatient (IN) | payer MEDICARE, SELFPAY ==
[2020-08-02] VITALS (9 sets, daily range): BP systolic 93–126; BP diastolic 57–86; PULSE 100–108; RESP 16–19; TEMP 37.1–37.9; O2SAT 95–99; BMI 23.1; BMI 22.3
--- NOTE | 2020-08-02 18:17 | ED.DCSUM_ITS ---
History of Present Illness Chief Complaint: Fever Informant: Patient, Family Onset: Days Narrative: Patient presents from the TCU secondary to elevated temperature. Patient had a lumbar laminectomy on May 07. In mid June patient rolled over in bed and felt a sudden pain in his right hip. He was admitted and evaluated in the emergency room and ultimately admitted for intractable right hip pain. Work-up at that time included joint aspiration under fluoroscopy. Fluid did not appear to be infected. Patient tells me his spine surgeon does not feel that this is related to the spine surgery. Patient has been in the TCU since July 18. Daughter states patient has been having fever off and on since he was in the hospital. Today temperature went up to 102.6. Patient does report roaming pain in his extremities including bilateral knees, right bilateral hips, and today his left wrist. Blood work including urine and blood cultures were obtained in the TCU. Covid test was obtained and negative. Patient was sent to the emergency room and I was advised the physician was concerned for possible joint infection. - Past Medical History (1) Atrial fibrillation Status: Chronic (2) BPH (benign prostatic hyperplasia) Status: Chronic (3) GERD (gastroesophageal reflux disease) Status: Chronic (4) Lumbar spinal stenosis Status: Chronic (5) Rheumatoid arthritis Status: Chronic Past Medical History - Allergies and Home Meds Allergies/Adverse Reactions: Allergies No Known Allergies Allergy (Verified 08/02/20 17:43) Primary Care Physician: Gloria Hazel MD [Primary Care Provider] - Prior records reviewed: Yes Surgical History: adenoidectomy, cataract, cholecystectomy - Laparoscopic., colectomy - Left., herniorrhaphy - Umbilical, Inguinal., rotator cuff repair - Bilateral., - - Hemorrhoidectomy, Vasectomy. Lives: Alone Smoking Status: Former smoker - Family History Maternal Family History: Family History (Last Reviewed 07/13/20 @ 21:[address] Catalino Greenwood MD) Father CVA (cerebral vascular accident) Brother CAD (coronary artery disease) Mother CVA (cerebral vascular accident) Grandfather Cancer Family History: Reports: No pertinent history Paternal Family History: Family History (Last Reviewed 07/13/20 @ 21:[address] Catalino Greenwood MD) Father CVA (cerebral vascular accident) Brother CAD (coronary artery disease) Mother CVA (cerebral vascular accident) Grandfather Cancer Family History: Reports: No pertinent history Review of Systems General: Reports: Fever Eyes: Denies: Visual changes - bilaterally ENT: Denies: Bilateral ear pain Cardiovascular: Denies: Chest pain, Palpitations Respiratory: Denies: Dyspnea, Cough Gastrointestinal: Denies: Abdominal pain, Nausea, Vomiting - Occasional dry heaves, Diarrhea Genitourinary: Denies: Dysuria Musculoskeletal: Reports: Swelling, Extremity Pain Skin: Denies: Wounds Neurological: Denies: Headache Hematologic: Denies: Easy bruising, Easy bleeding Allergy: Denies: Uticaria Physical Exam Vital Signs/Narrative: Vital Signs Temp Pulse Resp BP Pulse Ox 08/02/20 18:02 108 H 18 126/68 H 98 08/02/20 17:37 100 F H 108 H 16 122/75 H 98 Inital Vital Signs reviewed: Yes General: Well nourished, Well developed Head: Normocephalic Eyes: Perrl, EOMI Neck: Supple Cardiovascular: Irregular, Tachycardia Respiratory: No distress, CTA bilaterally Abdomen: Soft, Tender - Mild tenderness in the suprapubic region.. Negative for: Guarding, Rebound tenderness Extremities: - - Mild tenderness of the anterior right hip. No focal tenderness with palpation over the left hip or knees. No skin erythema. Upper extremity examination reveals mild erythema and edema over the dorsal left wrist. Neurological: Alert, Oriented x3, - - No focal neurologic deficits. Psychological: Normal affect Diagnostic/Tx/Re-eval Impressions Wrist X-Ray 08/02/20 18:17 IMPRESSION: No fracture or dislocation in the left breast. Moderate degenerative change. Widening of the scapholunate distance which is consistent with scapholunate ligament tear. Electronically Signed: Richard Baxter MD at 19:28 EST Tel , Service support , Chest X-Ray 08/02/20 18:57 IMPRESSION: No acute thoracic pathology. Electronically Signed: Richard Baxter MD at 19:27 EST Tel , Service support , 08/02/20 18:17 Wrist min 3 Views [RAD] Stat 08/02/20 18:57 Chest 1 View (Portable) [RAD] Stat Laboratory Results 08/02/20 08/02/20 08/02/20 18:44 18:44 18:44 ESR 78 H Lactic Acid 1.0 C-React Prot Ext Range 249.00 H - Medical Decision Making Blood work from just a few hours ago is reviewed. White count is 14.2. Hemoglobin is 12.2 and hematocrit is 37.2. 78% neutrophils are noted. Chemistry studies unremarkable. Urinalysis normal. Covid PCR is negative. Left wrist x-ray was performed tonight which reveals chronic changes per my review. Portable chest x-ray shows no focal infiltrate. Radiologist's interpretation is reviewed for both cases. I did add a lactic acid which is normal at 1.0. Sed rate and CRP are both elevated. Because the TCU physician was concerned for septic joint I did speak with orthopedics. I spoke with SHOSHANA Marcus for Dr. Chaves's group. They will be happy to see the patient in consult tomorrow. I will speak with hospitalist for admission. ED Disposition - Plan for ED Patient: Disposition: Acute Care Hospital [facility] Diagnosis: Fever Referrals: Gloria Hazel MD [Primary Care Provider] -
--- NOTE | 2020-08-02 18:17 | RAD_ITS ---
STUDY: X-RAY - LEFT WRIST REASON FOR EXAM: Male, 79 years old. Pain TECHNIQUE: 3 view(s) of the wrist were obtained. COMPARISON: None. FINDINGS: There is no evidence of fracture or dislocation. There are moderate degenerative changes. There is widening of the scapholunate distance, consistent with scapholunate ligament tear. There are no radiodense foreign bodies. RAD/Wrist min 3 Views IMPRESSION: No fracture or dislocation in the left breast. Moderate degenerative change. Widening of the scapholunate distance which is consistent with scapholunate ligament tear. Electronically Signed: Richard Baxter MD at 19:28 EST Tel , Service support ,
--- NOTE | 2020-08-02 18:57 | RAD_ITS ---
STUDY: X-RAY CHEST REASON FOR EXAM: Male, 79 years old. Fever TECHNIQUE: Frontal view of the chest COMPARISON: 07/14/20 FINDINGS: The lungs are hyperinflated, but clear. There are no pleural effusions. There is no pneumothorax. The heart is normal in size. There are stable degenerative changes noted in the shoulders. RAD/Chest 1 View (Portable) IMPRESSION: No acute thoracic pathology. Electronically Signed: Richard Baxter MD at 19:27 EST Tel , Service support ,
[2020-08-02 18:59] LABS: Erythrocyte Sedimentation Rate 78 mm/hr (0-20)
[2020-08-02] MEDS: Acetaminophen 325 MG Tablet 650 MG PO (19:02)
[2020-08-02] MEDS: oxyCODONE 5 MG Tablet 10 MG PO ×2 (19:02→23:36)
[2020-08-02] MEDS: 0.9% Normal Saline 1,000 ML 999 ML IV (20:14)
--- NOTE | 2020-08-02 21:00 | PCM.HP.STD ---
Problem List (1) Inflammatory arthritis Status: Acute History of Present Illness Date of Admission: 08/02/20 Chief Complaint: fever The patient is a 79 year old M with a significant history of rheumatoid arthritis; and gout who presents emergency department with a fever while at the transitional care unit of [facility]. Reportedly his temperature was 102.6 Fahrenheit. Associated with his symptoms is chills; poor appetite. Further he has excruciating pain and swelling of left wrist. He also reports swelling of left knee. He has right painful hip. Patient was at the hospital recently and he had drainage of right hip joint effusion. He reported that he has an appointment scheduled for some drainage at the posterior side of his left knee. At the transitional care unit the urinalysis; Covid PCR and other test was done. Of note patient was admitted on 07/13/2020 to 07/18/2020 at our hospital. His primary discharge diagnosis was (1) acute intractable right groin pain secondary to moderate right hip joint effusion/fluid in the surrounding hip muscles.; and (2) Fever of unclear etiology, probable hip joint infection. Past Medical History Past Medical History (Chronic Problems): Chronic Problems (Last Reviewed 08/02/20 @ 21:[address] Catalino Greenwood MD) Atrial fibrillation (Chronic) Lumbar spinal stenosis (Chronic) Atrial fibrillation with rapid ventricular response (Chronic) Muscle spasm (Chronic) GERD (gastroesophageal reflux disease) (Chronic) Rheumatoid arthritis (Chronic) SVT (supraventricular tachycardia) (Chronic) Insomnia (Chronic) BPH (benign prostatic hyperplasia) (Chronic) Appetite loss (Chronic) Abnormal EKG (Chronic) Abnormal echocardiogram (Chronic) Left ventricular hypokinesis (Chronic) Leg pain, bilateral (Chronic) Edema (Chronic) Medical History: Medical History (Last Reviewed 08/02/20 @ 21:[address] 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 Leg pain, bilateral (Chronic) M79.604, M79.605 Edema (Chronic) R60.9 H/o finger stitches Left index H/o three feet of intestines removed Hemorrhoids K64.9 PAT (paroxysmal atrial tachycardia) I47.1 SVT (supraventricular tachycardia) I47.1 Back pain M54.9 Rheumatoid arthritis M06.9 Allergies No Known Allergies Allergy (Verified 08/02/20 17:43) Home Medications: Ambulatory Orders Medication Instructions Recorded Hydroxychloroquine [Plaquenil] 200 mg PO BIDCM 10/09/14 Trazodone HCl 150 mg PO QHS 09/22/17 Finasteride [Proscar] 5 mg PO DAILY 12/10/18 methotrexate sodium 2.5 mg tablet 20 mg PO JONES 01/29/19 ascorbic acid (vitamin C) 500 mg 500 mg PO DAILY tab 01/30/19 chewable tablet golimumab 12.5 mg/mL intravenous 135 mg IV [id number] ml 01/30/19 solution apanbvba-czzgrypj-ybwgb acid 400 1 tab PO DAILY 04/06/20 mcg-vit K 20 mcg-lycop 300 mcg tablet Apixaban [Eliquis] 2.5 mg PO BID #60 tab 06/01/20 Aspirin [Aspirin, Baby] 81 mg PO DAILY@0800 07/13/20 Cyanocobalamin (Vitamin B-12) 500 mcg PO DAILY 07/13/20 [Vitamin B-12] Topiramate [Topamax] 25 mg PO BID 07/13/20 Metoprolol Tartrate [Lopressor 12.5 mg PO BID 07/18/20 (beta santiago)] Mirtazapine [Remeron] 7.5 mg PO QHS 07/18/20 Polyethylene Glycol 3350 [Miralax] 17 gm PO DAILY 07/18/20 Senna/Docusate Sodium [Senokot-S] 2 tab PO BID 07/18/20 Tamsulosin HCl [Flomax] 0.4 mg PO DAILY@1730 07/18/20 Acetaminophen [Tylenol Extra 1,000 mg PO Q6H PRN PRN 08/02/20 Strength] Baclofen [Lioresal] 10 mg PO TID 08/02/20 Bisacodyl [Dulcolax] 10 mg PO DAILY PRN PRN 08/02/20 Folic Acid 1.5 mg PO DAILY 08/02/20 Magnesium Hydroxide [Milk Of 30 ml PO DAILY PRN PRN 08/02/20 Magnesia] Menthol/Lanolin/Calamine/Znox 1 applic TOPICAL BID 08/02/20 [Calmoseptine Ointment] Nystatin Powder [Mycostatin Powder] 1 applic TOPICAL BID 08/02/20 Oxycodone [Oxyir] 15 mg PO Q4H PRN PRN 08/02/20 Potassium Chloride Oral Tablet 10 meq PO DAILY 08/02/20 [K-Dur] Surgical History: Surgical History (Last Reviewed 08/02/20 @ 21:[address] Catalino Greenwood MD) H/O colonoscopy Z98.890 H/O umbilical hernia repair Z98.890, Z87.19 S/P appendectomy Z90.49 S/P cataract surgery Z98.49 Bilateral S/P hemorrhoidectomy Z98.890, Z87.19 S/P inguinal hernia repair Z98.890, Z87.19 bilateral S/P laparoscopic cholecystectomy Z90.49 S/P left colectomy Z90.49 S/P rotator cuff repair Z98.890 Bilateral S/P vasectomy Z98.52 Surgical History: adenoidectomy, cataract, cholecystectomy - Laparoscopic., colectomy - Left., herniorrhaphy - Umbilical, Inguinal., rotator cuff repair - Bilateral., - - Hemorrhoidectomy, Vasectomy. Psychiatric History: No pertinent psych hx Lives: Alone Smoking Status: Former smoker - *Family History Maternal Family History: Family History (Last Reviewed 08/03/20 @ 02:[address] Catalino Greenwood MD) Father CVA (cerebral vascular accident) Brother CAD (coronary artery disease) Mother CVA (cerebral vascular accident) Grandfather Cancer Paternal Family History: Family History (Last Reviewed 08/03/20 @ 02:[address] Catalino Greenwood MD) Father CVA (cerebral vascular accident) Brother CAD (coronary artery disease) Mother CVA (cerebral vascular accident) Grandfather Cancer Review of Systems Constitutional: Reports: Anorexia, Chills, Fever. Denies: Weight Change HEENT: Denies: Head Aches, Sinus Congestion, Sinus Drainage Cardiovascular: Denies: Chest Pain, Palpitations Respiratory: Denies: Cough, Shortness of breath at rest, Sputum production Gastrointestinal: Denies: Abdominal Pain, Nausea, Vomiting Genitourinary: Denies: Dysuria Musculoskeletal: Reports: Joint Pain, Joint swelling, Joint Tenderness Skin: Denies: Rash, Wounds Neurological: Denies: Numbness, Tingling, Focal weakness Psychiatric: Denies: Anxiety, Depression, Homicidal Ideations, Suicidal Ideations Hematologic/ Lymphatic: Denies: Easy Bruising, Easy Bleeding VTE Information - Inpt Only VTE Present on Admission: No VTE Mechan Device Prophylaxis: None VTE Pharm Prophylaxis ordered?: No Reason prophylaxis not ordered:: Treatment Not Indicated - Home Eliquis for A. fib continued Patient Problems: Active and Suspected Problems (Last Reviewed 08/02/20 @ 21:[address] Catalino Greenwood MD) Fever (Acute) Inflammatory arthritis (Acute) - Physical Exam Vitals/I&O's: Vital Signs Temp Pulse Resp BP Pulse Ox 100.2 F H 100 17 103/61 98 08/02/20 20:53 08/02/20 20:53 08/02/20 20:53 08/02/20 20:53 08/02/20 20:53 Oxygen Delivery Method Room Air Weight: 59.3 kg Body Mass Index (BMI) 23.1 General: Alert, Oriented x3, Cooperative HEENT: Atraumatic, PERRLA, EOMI, Normocephalic Neck: Supple, No JVD, Negative Carotid Bruits Lungs: Clear to auscultation, Normal air movement Cardiovascular: Regular rate, No murmurs Abdomen: Bowel Sounds Present, Soft, Non Tender Extremities: No edema, Capillary Refill Less than 3 Seconds, Tenderness - Left wrist, - - Left wrist with swelling; mild erythema and mild increased warmth. Increased in size of left knee compared to right knee. Deformity digits of all extremities. Skin: No rashes, No breakdown Musculoskeletal: No Tenderness to Palpation of Joints or Extremities Neurological: Cranial nerves II-XII grossly intact Psych/Mental Status: Normal Affect, Appropriate Laboratory Results 08/02/20 18:44: Lactic Acid 1.0 08/02/20 18:44: ESR 78 H 08/02/20 18:44: C-React Prot Ext Range 249.00 H Current Medications Sodium Chloride () 1,000 mls @ 999 mls/hr IV .Q1H1M ONE Stop: 08/02/20 21:02 Last Admin: 08/02/20 20:14 Dose: 999 mls/hr Documented by: Assessment/Plan All Active Problems (Last Reviewed 08/02/20 @ 21:[address] Catalino Greenwood MD) Debility (Acute) Scrotal pain (Acute) Right groin pain (Acute) Right hip joint effusion (Acute) Fever (Acute) Inflammatory arthritis (Acute) Recurrent umbilical hernia (Resolved) The patient is a 79 year old M with a significant history of rheumatoid arthritis; and gout who presents emergency department with a fever while at the transitional care unit of [facility] with fever 102.6 Fahrenheit; chills; poor appetite; excruciating pain and swelling of left wrist; swelling of left knee; and right painful hip; and found to have elevated ESR and CRP. Acute inflammatory arthritis Review of labs done on the same day of presentation transitional care unit showed white count of 14.2. This was unremarkable. Follow blood culture and urine culture ordered at the transitional care unit. PCR Covid test 08/02/2020 transitional care unit was negative. Elevated CRP and ESR. Likely gout We will start patient on steroids. Continue oxycodone. Bowel protocol and order antiemetics in place. Continue Tylenol Check uric acid. Orthopedic consult Atrial fibrillation Eliquis continued Metoprolol continued Rheumatoid arthritis Hydroxychloroquine and methotrexate continued. Folic acid continued. Golimumab every 2 months. DVT Prophylaxis On Eliquis which has been continued. Inpatient E&M: 74042 Init Hosp L3
[2020-08-02 22:41] LABS: Uric Acid 3.4 mg/dL (3.5-7.2)
[2020-08-02] MEDS: MELATONIN 3 MG TABLET PO (23:37)
[2020-08-02] MEDS: traZODone 50 MG Tablet 150 MG PO (23:38)
[2020-08-02] MEDS: Metoprolol Tartrate 25 MG Tablet 12.5 MG PO (23:38)
[2020-08-02] MEDS: Topiramate 25 MG Tablet PO (23:39)
[2020-08-02] MEDS: Mirtazapine 15 MG Tablet 7.5 MG PO (23:39)
[2020-08-02] MEDS: Senna/Docusate Sodium 1 Tablet 2 TABLET PO (23:39)
[2020-08-02] MEDS: Tamsulosin HCl 0.4 MG Capsule PO (23:40)
[2020-08-02] MEDS: 0.9% Saline Lock 10 ML Syringe IV (23:40)
[2020-08-03] VITALS (8 sets, daily range): BP systolic 92–127; BP diastolic 53–62; PULSE 64–96; RESP 16–20; TEMP 36.4–36.8; O2SAT 95–100
[2020-08-03] MEDS: oxyCODONE 5 MG Tablet 15 MG PO ×4 (05:34→22:38)
[2020-08-03] MEDS: Acetaminophen 500 MG Tablet 1000 MG PO ×2 (05:34→13:24)
[2020-08-03] MEDS: Baclofen 10 MG Tablet PO ×3 (05:34→21:01)
[2020-08-03 06:14] LABS: Absolute Neutrophil Count 8.7 X10^3/uL (2.0-7.7); Basophil# 0.01 X10^3/uL; Basophil% 0.1 % (0-1); Hematocrit 39.8 % (40-54); Hemoglobin 12.6 g/dL (13.0-16.5); Lymphocyte % 10.9 % (19-41); Mean Corp Hgb Conc 31.7 g/dL (32-36); Mean Corpuscular Hgb 29.5 pg (27.0-32.0); Mean Corpuscular Volume 93.2 fL (80-94); Mean Platelet Vol. 9.8 fl (6.2-12.0); Monocyte# 0.26 X10^3/uL; Monocyte% 2.6 % (0-10); NRBC Flagged by Analyzer 0 % (0-5); Neutrophil # 8.65 X10^3/uL (2.7-7.7); Platelet Count 231 K/mm3 (150-450); RBC Distribution Width CV 15.2 % (11.6-14.6); RBC Distribution Width SD 52.9 fl (35.1-43.9); Red Blood Count 4.27 M/mm3 (4.6-6.2); White Blood Count 10.1 K/mm3 (4.4-11.0)
[2020-08-03 06:24] LABS: Anion Gap 7 (5-15); BUN 11 mg/dL (7-18); BUN/Creat Ratio 13.1 RATIO (10-20); Chloride 103 mmol/L (98-107); Creatinine, Serum 0.84 mg/dL (0.70-1.30); EST Glomerular Filtration Rate 94 mL/min (>60); Est Glom Filt Rate - Afr Amer 114 mL/min (>60); Estimated Creatinine Clearance 59.27 ml/min; Glucose 155 mg/dL (74-106); Sodium Level 137 mmol/L (136-145)
[2020-08-03] MEDS: Folic Acid 1 MG Tablet 1.5 MG PO (09:24)
[2020-08-03] MEDS: Aspirin 81 MG TAB.CHEW PO (09:24)
[2020-08-03] MEDS: Hydroxychloroquine 200 MG Tablet PO ×2 (09:25→17:40)
[2020-08-03] MEDS: Multivitamins,Ther W-Minerals Tablet 1 TABLET PO (09:25)
[2020-08-03] MEDS: Senna/Docusate Sodium 1 Tablet 2 TABLET PO ×2 (09:27→21:00)
[2020-08-03] MEDS: Finasteride 5 MG Tablet PO (09:27)
[2020-08-03] MEDS: Topiramate 25 MG Tablet PO ×2 (09:28→21:00)
[2020-08-03] MEDS: 0.9% Saline Lock 10 ML Syringe IV (09:28)
[2020-08-03] MEDS: Cyanocobalamin 500 MCG Tablet PO (09:30)
[2020-08-03] MEDS: Ascorbic Acid 500 MG Tablet PO (09:30)
[2020-08-03] MEDS: Metoprolol Tartrate 25 MG Tablet 12.5 MG PO ×2 (09:38→21:01)
[2020-08-03] MEDS: APIXABAN 2.5 MG TABLET PO ×2 (09:38→21:01)
[2020-08-03] MEDS: Potassium Chloride Oral Tablet 10 MEQ PO (09:39)
--- NOTE | 2020-08-03 10:30 | PCM.PN.HOSP ---
Patient Problems: Active and Suspected Problems (Last Reviewed 08/02/20 @ 21:[address] Catalino Greenwood MD) Fever (Acute) Inflammatory arthritis (Acute) Reason for Visit: Left wrist and right groin pain Subjective: Patient is a 79-year-old gentleman with history of rheumatoid arthritis who presented with fever and left wrist and right groin pain Objective: GENERAL: in some discomfort HEENT: Atraumatic; EYES; Anicteric, Normal Conjunctiva NECK; supple, normal thyroid, RESPIRATORY: Diminished to auscultation CARDIOVASCULAR: S1-S2 GI: soft, normoactive bowel sounds, : No Renal angle tenderness; EXTREMITIES: No edema, no clubbing, MUSCULOSKELETAL: Left right wrist swelling, movement restricted in right hip NEURO: Awake; no lateralizing signs. SKIN: No Rash PSYCH; Flat affect Vitals/I&O's: Vital Signs Temp Pulse Resp BP Pulse Ox 97.5 F L 96 18 127/62 H 98 08/03/20 09:37 08/03/20 09:38 08/03/20 09:37 08/03/20 09:38 08/03/20 09:37 Oxygen Delivery Method Room Air Weight: 57.198 kg Body Mass Index (BMI) 22.3 Intake and Output for Last 24 Hours 08/01/20 08/02/20 08/03/20 23:59 23:59 23:59 Intake Total 1600 / 1600 Output Total 600 / 600 320 / 320 Balance 1000 / 1000 -320 / -320 Laboratory Results 08/02/20 18:44: Lactic Acid 1.0 08/02/20 18:44: ESR 78 H 08/02/20 18:44: C-React Prot Ext Range 249.00 H 08/02/20 18:44: Uric Acid 3.4 L 08/03/20 05:52: WBC 10.1, RBC 4.27 L, Hgb 12.6 L, Hct 39.8 L, MCV 93.2, MCH 29.5, MCHC 31.7 L, RDW Std Deviation 52.9 H, RDW Coeff of Jaciel 15.2 H, Plt Count 231, MPV 9.8, Immature Gran % (Auto) 0.400, Neut % (Auto) 86.0 H, Lymph % (Auto) 10.9 L, Brown % (Auto) 2.6, Eos % (Auto) 0.0, Baso % (Auto) 0.1, Absolute Neuts (auto) 8.7 H, Absolute Lymphs (auto) 1.10, Nucleated RBC % 0 08/03/20 05:52: Sodium 137, Potassium 4.0, Chloride 103, Carbon Dioxide 27.0, Anion Gap 7, BUN 11, Creatinine 0.84, Estim Creat Clear Calc 59.27, Est GFR (MDRD) Af Amer 114, Est GFR (MDRD) Non-Af 94, BUN/Creatinine Ratio 13.1, Glucose 155 H, Calcium 9.0 Current Medications Acetaminophen (Acetaminophen 500 Mg Tablet) 1,000 mg PO Q6H PRN PRN PRN Reason: 1-10 pain/fever Last Admin: 08/03/20 05:34 Dose: 1,000 mg Documented by: Apixaban (Apixaban 2.5 Mg Tablet) 2.5 mg PO BID [facility] Last Admin: 08/03/20 09:38 Dose: 2.5 mg Documented by: Ascorbic Acid (Ascorbic Acid 500 Mg Tablet) 500 mg PO DAILY [facility] Last Admin: 08/03/20 09:30 Dose: 500 mg Documented by: Aspirin (Aspirin 81 Mg Tab.Chew) 81 mg PO DAILY@0800 [facility] Last Admin: 08/03/20 09:24 Dose: 81 mg Documented by: Baclofen (Baclofen 10 Mg Tablet) 10 mg PO TID [facility] Last Admin: 08/03/20 05:34 Dose: 10 mg Documented by: Bisacodyl (Bisacodyl 5 Mg Tablet) 10 mg PO DAILY PRN PRN PRN Reason: Constipation Calamine/Phenol (Menthol/Lanolin/Calamine/Znox 113 Gm Tube) 1 applic TOPICAL BID [facility]; Protocol Cyanocobalamin (Cyanocobalamin 500 Mcg Tablet) 500 mcg PO DAILY [facility] Last Admin: 08/03/20 09:30 Dose: 500 mcg Documented by: Finasteride (Finasteride 5 Mg Tablet) 5 mg PO DAILY [facility] Last Admin: 08/03/20 09:27 Dose: 5 mg Documented by: Folic Acid (Folic Acid 1 Mg Tablet) [facility] Last Admin: 08/03/20 09:24 Dose: 1.5 mg Documented by: Hydroxychloroquine Sulfate (Hydroxychloroquine 200 Mg Tablet) [facility] Last Admin: 08/03/20 09:25 Dose: 200 mg Documented by: Sodium Chloride () 250 mls @ 15 mls/hr IV .[id number] PRN PRN Reason: Saline Flush Magnesium Hydroxide (Magnesium Hydroxide 30 Ml Udc) 30 ml PO DAILY PRN PRN PRN Reason: Constipation Melatonin (Melatonin 3 Mg Tablet) 3 mg PO QHS PRN PRN PRN Reason: INSOMNIA Last Admin: 08/02/20 23:37 Dose: 3 mg Documented by: Methotrexate (Methotrexate 2.5 Mg Tablet) 20 mg PO [facility] Methylprednisolone (Methylprednisolone 40 Mg/Ml Vial) 40 mg IV DAILY [facility] Last Admin: 08/03/20 09:29 Dose: 40 mg Documented by: Metoprolol Tartrate (Metoprolol Tartrate 25 Mg Tablet) 12.5 mg PO BID [facility] Last Admin: 08/03/20 09:38 Dose: 12.5 mg Documented by: Mirtazapine (Mirtazapine 15 Mg Tablet) 7.5 mg PO QHS [facility] Last Admin: 08/02/20 23:39 Dose: 7.5 mg Documented by: Multivitamins/Minerals (Multivitamins,Ther W-Minerals Tablet) [facility] Last Admin: 08/03/20 09:25 Dose: 1 tablet Documented by: Nystatin (Nystatin Powder 15gm Bottle) 1 applic TOPICAL BID [facility]; Protocol Ondansetron HCl (Ondansetron 4 Mg/2 Ml Vial) 4 mg IV Q8H PRN PRN PRN Reason: NAUSEA/VOMITING Oxycodone HCl (Oxycodone 5 Mg Tablet) 15 mg PO Q4H PRN PRN PRN Reason: Pain 1-10 Last Admin: 08/03/20 05:34 Dose: 15 mg Documented by: Polyethylene Glycol (Polyethylene Glycol 3350 17 Gm Packet) 17 gm PO DAILY [facility] Last Admin: 08/03/20 09:32 Dose: Not Given Documented by: Potassium Chloride (Potassium Chloride Oral Tablet 10 Meq) [facility] Last Admin: 08/03/20 09:39 Dose: 10 meq Documented by: Senna/Docusate Sodium (Senna/Docusate Sodium 1 Tablet) 2 tablet PO BID [facility] Last Admin: 08/03/20 09:27 Dose: 2 tablet Documented by: Sodium Chloride (0.9% Saline Lock 10 Ml Syringe) 10 - 40 ml IV UD PRN PRN Reason: SALINE FLUSH Last Admin: 08/03/20 09:28 Dose: 10 ml Documented by: Tamsulosin HCl (Tamsulosin Hcl 0.4 Mg Capsule) 0.4 mg PO DAILY@1730 [facility] Last Admin: 08/02/20 23:40 Dose: 0.4 mg Documented by: Topiramate (Topiramate 25 Mg Tablet) 25 mg PO BID [facility] Last Admin: 08/03/20 09:28 Dose: 25 mg Documented by: Trazodone HCl (Trazodone 50 Mg Tablet) 150 mg PO QHS [facility] Last Admin: 08/02/20 23:38 Dose: 150 mg Documented by: STROKE Vital Signs/Narrative: Vital Signs Temp Pulse Resp BP Pulse Ox 08/03/20 09:38 96 127/62 H 08/03/20 09:37 97.5 F L 96 18 127/62 H 98 08/03/20 07:28 96 Medical Necessity - Tobacco Use Smoking Status: Former smoker Assessment/Plan All Active Problems (Last Reviewed 08/02/20 @ 21:[address] Catalino Greenwood MD) Debility (Acute) Scrotal pain (Acute) Right groin pain (Acute) Right hip joint effusion (Acute) Fever (Acute) Inflammatory arthritis (Acute) Recurrent umbilical hernia (Resolved) Patient is a 79-year-old gentleman with history of rheumatoid arthritis who presented with fever and left wrist and right groin pain 1. Acute inflammatory polyarthritis ?Patient has had chronic right groin pain for which he underwent IR drainage during his last admission cultures came back negative. Presented this time with left wrist joint involvement. Admitted to regular nursing floor started on steroids. Blood cultures were obtained 2. Chronic A. fib ?Patient is on metoprolol as well as systemic anticoagulation with Eliquis continued 3. Rheumatoid arthritis ?Patient is on hydroxychloroquine and methotrexate as well as Golimumab every 2 months. 4. BPH ?Patient is on Flomax and Proscar continue 5. DVT prophylaxis ?On Eliquis continue Inpatient E&M: [id number] [facility] Hosp L3
--- NOTE | 2020-08-03 12:02 | CASEMGMT ---
Addendum entered by Joslyn Barton 08/03/20 12:20: SW met with pt to discuss discharge plans. SW introduced self and role at [facility]. SW familiar with pt from previous visit. Pt is alert and orientated and answers questions appropriately. Pt confirms that he came from [facility] TCU. Pt states TCU sent pt to ED and then pt was brought up to [facility]. SW informed pt that bed on TCU is on hold. Patient was provided a list of SNF providers including quality and resource use data and consistent with the patient?s preferred geographic region, medical needs, and insurance network. Pt's preferred provider is to return to [facility] TCU. SW explained that pre-cert will be needed again, SW will work on this. Pt states understanding, denied additional needs or concerns at this time. SW to submit for pre-cert. Plan: Return to [facility] pending pre-cert Original Note: Social Work Note SW reviewed chart, pt is from TCU. [facility]AITY placed a call to [place] with TCU. [place] was anticipating that pt will return to TCU, pt will need pre-cert to return. KAITY attempted to meet with pt, pt working with PT/OT. KAITY will follow up with pt. Joslyn Barton DIGITAL MARKETING COORDINATOR, BROADCAST OPERATIONS MANAGER
[2020-08-03] MEDS: Bisacodyl 5 MG Tablet 10 MG PO (13:23)
--- NOTE | 2020-08-03 14:07 | CON.PCM_ITS ---
Reason for Consult Date of Consultation: 08/03/20 History of Present Illness: The patient is a 79 year old M patient who has known rheumatoid arthritis and known history of gout who recently was admitted for right hip pain in June and was seen by Dr. Chaves, MRI of right hip only showed joint effusion. Joint aspiration of right hip demonstrated jagdeep-colored fluid with no bacteria no growth on culture and a WBC count of only 2000. Patient subsequently started having left groin pain and left knee pain and most recently left wrist pain. He denies injury to these joints he did have an elevated temperature in the TCU and an isolated elevated white blood cell count of 14.2 which has subsequently decreased to 10.1 without antibiotics. He did have an elevated CRP and ESR but a lactic acid of 1 on 08/02/2020. Patient does take methotrexate and Plaquenil in addition to Golimumab, for which she sees the medical records secretary Dr. Amezcua for. In addition patient does take baclofen 10 mg 3 times daily and oxycodone 15 mg every 4 hours. Wrist swelling and left knee swelling has much improved since ge tting prednisone in ED according to daughter. Past Medical History Past Medical History (Chronic Problems): Chronic Problems (Last Reviewed 08/02/20 @ 21:[address] Catalino Greenwood MD) Atrial fibrillation (Chronic) Lumbar spinal stenosis (Chronic) Atrial fibrillation with rapid ventricular response (Chronic) Muscle spasm (Chronic) GERD (gastroesophageal reflux disease) (Chronic) Rheumatoid arthritis (Chronic) SVT (supraventricular tachycardia) (Chronic) Insomnia (Chronic) BPH (benign prostatic hyperplasia) (Chronic) Appetite loss (Chronic) Abnormal EKG (Chronic) Abnormal echocardiogram (Chronic) Left ventricular hypokinesis (Chronic) Leg pain, bilateral (Chronic) Edema (Chronic) Medical History: Medical History (Last Reviewed 08/02/20 @ 21:[address] 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 Leg pain, bilateral (Chronic) M79.604, M79.605 Edema (Chronic) R60.9 H/o finger stitches Left index H/o three feet of intestines removed Hemorrhoids K64.9 PAT (paroxysmal atrial tachycardia) I47.1 SVT (supraventricular tachycardia) I47.1 Back pain M54.9 Rheumatoid arthritis M06.9 Allergies No Known Allergies Allergy (Verified 08/02/20 17:43) Home Medications: Ambulatory Orders Medication Instructions Recorded Hydroxychloroquine [Plaquenil] 200 mg PO BIDCM 10/09/14 Trazodone HCl 150 mg PO QHS 09/22/17 Finasteride [Proscar] 5 mg PO DAILY 12/10/18 methotrexate sodium 2.5 mg tablet 20 mg PO JONES 01/29/19 ascorbic acid (vitamin C) 500 mg 500 mg PO DAILY tab 01/30/19 chewable tablet golimumab 12.5 mg/mL intravenous 135 mg IV [id number] ml 01/30/19 solution zsqgxiis-yfttmmpf-yrjuh acid 400 1 tab PO DAILY 04/06/20 mcg-vit K 20 mcg-lycop 300 mcg tablet Apixaban [Eliquis] 2.5 mg PO BID #60 tab 06/01/20 Aspirin [Aspirin, Baby] 81 mg PO DAILY@0800 07/13/20 Cyanocobalamin (Vitamin B-12) 500 mcg PO DAILY 07/13/20 [Vitamin B-12] Topiramate [Topamax] 25 mg PO BID 07/13/20 Metoprolol Tartrate [Lopressor 12.5 mg PO BID 07/18/20 (beta santiago)] Mirtazapine [Remeron] 7.5 mg PO QHS 07/18/20 Polyethylene Glycol 3350 [Miralax] 17 gm PO DAILY 07/18/20 Senna/Docusate Sodium [Senokot-S] 2 tab PO BID 07/18/20 Tamsulosin HCl [Flomax] 0.4 mg PO DAILY@1730 07/18/20 Acetaminophen [Tylenol Extra 1,000 mg PO Q6H PRN PRN 08/02/20 Strength] Baclofen [Lioresal] 10 mg PO TID 08/02/20 Bisacodyl [Dulcolax] 10 mg PO DAILY PRN PRN 08/02/20 Folic Acid 1.5 mg PO DAILY 08/02/20 Magnesium Hydroxide [Milk Of 30 ml PO DAILY PRN PRN 08/02/20 Magnesia] Menthol/Lanolin/Calamine/Znox 1 applic TOPICAL BID 08/02/20 [Calmoseptine Ointment] Nystatin Powder [Mycostatin Powder] 1 applic TOPICAL BID 08/02/20 Oxycodone [Oxyir] 15 mg PO Q4H PRN PRN 08/02/20 Potassium Chloride Oral Tablet 10 meq PO DAILY 08/02/20 [K-Dur] Surgical History: Surgical History (Last Reviewed 08/02/20 @ 21:[address] Catalino Greenwood MD) H/O colonoscopy Z98.890 H/O umbilical hernia repair Z98.890, Z87.19 S/P appendectomy Z90.49 S/P cataract surgery Z98.49 Bilateral S/P hemorrhoidectomy Z98.890, Z87.19 S/P inguinal hernia repair Z98.890, Z87.19 bilateral S/P laparoscopic cholecystectomy Z90.49 S/P left colectomy Z90.49 S/P rotator cuff repair Z98.890 Bilateral S/P vasectomy Z98.52 Surgical History: adenoidectomy, cataract, cholecystectomy - Laparoscopic., colectomy - Left., herniorrhaphy - Umbilical, Inguinal., rotator cuff repair - Bilateral., - - Hemorrhoidectomy, Vasectomy. Psychiatric History: No pertinent psych hx Lives: Alone Smoking Status: Former smoker - *Family History Maternal Family History: Family History (Last Reviewed 08/03/20 @ 02:[address] Catalino Greenwood MD) Father CVA (cerebral vascular accident) Brother CAD (coronary artery disease) Mother CVA (cerebral vascular accident) Grandfather Cancer History Items: No pertinent history Paternal Family History: Family History (Last Reviewed 08/03/20 @ 02:[address] Catalino Greenwood MD) Father CVA (cerebral vascular accident) Brother CAD (coronary artery disease) Mother CVA (cerebral vascular accident) Grandfather Cancer History Items: No pertinent history Patient Problems: Active and Suspected Problems (Last Reviewed 08/02/20 @ 21:[address] Catalino Greenwood MD) Fever (Acute) Inflammatory arthritis (Acute) - Physical Exam Vitals/I&O's: Vital Signs Temp Pulse Resp BP Pulse Ox 97.5 F L 96 18 127/62 H 98 08/03/20 09:37 08/03/20 09:38 08/03/20 09:37 08/03/20 09:38 08/03/20 09:37 Oxygen Delivery Method Room Air Weight: 126 lb 1.6 oz Body Mass Index (BMI) 22.3 Intake and Output for Last 24 Hours 08/01/20 08/02/20 08/03/20 23:59 23:59 23:59 Intake Total 1600 / 1600 Output Total 600 / 600 620 / 620 Balance 1000 / 1000 -620 / -620 General: Alert, Oriented x3, Cooperative, No apparent distress, - - daughter at bedside Extremities: - - Left hip no erythema or swelling. Hip range of motion near normal without significant pain. Left knee faint joint effusion no Izquierdo's cyst today. Range of motion 0 to 90 degrees without pain. No collateral or cruciate ligament laxity no patellar hypermobility no erythema negative Homans Skin: - - Left wrist there is swelling around the radiocarpal joint but no erythema he is able to move the wrist without significant pain however there is stiffness and moderate stigmata of rheumatoid arthritis and significant muscle atrophy and skin thinning. There is no erythema or increased warmth. Musculoskeletal: - - Lumbar spine incision well-healed without erythema fluctuance or mass Laboratory Results 08/02/20 18:44: Lactic Acid 1.0 08/02/20 18:44: ESR 78 H 08/02/20 18:44: C-React Prot Ext Range 249.00 H 08/02/20 18:44: Uric Acid 3.4 L 08/03/20 05:52: WBC 10.1, RBC 4.27 L, Hgb 12.6 L, Hct 39.8 L, MCV 93.2, MCH 29.5, MCHC 31.7 L, RDW Std Deviation 52.9 H, RDW Coeff of Jaciel 15.2 H, Plt Count 231, MPV 9.8, Immature Gran % (Auto) 0.400, Neut % (Auto) 86.0 H, Lymph % (Auto) 10.9 L, Faulk % (Auto) 2.6, Eos % (Auto) 0.0, Baso % (Auto) 0.1, Absolute Neuts (auto) 8.7 H, Absolute Lymphs (auto) 1.10, Nucleated RBC % 0 08/03/20 05:52: Sodium 137, Potassium 4.0, Chloride 103, Carbon Dioxide 27.0, Anion Gap 7, BUN 11, Creatinine 0.84, Estim Creat Clear Calc 59.27, Est GFR (MDRD) Af Amer 114, Est GFR (MDRD) Non-Af 94, BUN/Creatinine Ratio 13.1, Glucose 155 H, Calcium 9.0 Current Medications Acetaminophen (Acetaminophen 500 Mg Tablet) 1,000 mg PO Q6H PRN PRN PRN Reason: 1-10 pain/fever Last Admin: 08/03/20 13:24 Dose: 1,000 mg Documented by: Apixaban (Apixaban 2.5 Mg Tablet) 2.5 mg PO BID [facility] Last Admin: 08/03/20 09:38 Dose: 2.5 mg Documented by: Ascorbic Acid (Ascorbic Acid 500 Mg Tablet) 500 mg PO DAILY [facility] Last Admin: 08/03/20 09:30 Dose: 500 mg Documented by: Aspirin (Aspirin 81 Mg Tab.Chew) 81 mg PO DAILY@0800 [facility] Last Admin: 08/03/20 09:24 Dose: 81 mg Documented by: Baclofen (Baclofen 10 Mg Tablet) 10 mg PO TID [facility] Last Admin: 08/03/20 13:25 Dose: 10 mg Documented by: Bisacodyl (Bisacodyl 5 Mg Tablet) 10 mg PO DAILY PRN PRN PRN Reason: Constipation Last Admin: 08/03/20 13:23 Dose: 10 mg Documented by: Calamine/Phenol (Menthol/Lanolin/Calamine/Znox 113 Gm Tube) 1 applic TOPICAL BID [facility]; Protocol Last Admin: 08/03/20 10:30 Dose: Not Given Documented by: Cyanocobalamin (Cyanocobalamin 500 Mcg Tablet) 500 mcg PO DAILY [facility] Last Admin: 08/03/20 09:30 Dose: 500 mcg Documented by: Finasteride (Finasteride 5 Mg Tablet) 5 mg PO DAILY [facility] Last Admin: 08/03/20 09:27 Dose: 5 mg Documented by: Folic Acid ([facility] 1 Mg Tablet[facility] Last Admin: 08/03/20 09:24 Dose: 1.5 mg Documented by: Hydroxychloroquine Sulfate ([facility] 200 Mg Tablet) [facility] Last Admin: 08/03/20 09:25 Dose: 200 mg Documented by: Sodium Chloride () 250 mls @ 15 mls/hr IV .[id number] PRN PRN Reason: Saline Flush Magnesium Hydroxide (Magnesium Hydroxide 30 Ml Udc) 30 ml PO DAILY PRN PRN PRN Reason: Constipation Melatonin (Melatonin 3 Mg Tablet) 3 mg PO QHS PRN PRN PRN Reason: INSOMNIA Last Admin: 08/02/20 23:37 Dose: 3 mg Documented by: Methotrexate (Methotrexate 2.5 Mg Tablet) 20 mg PO [facility] Methylprednisolone (Methylprednisolone 40 Mg/Ml Vial) 40 mg IV DAILY [facility] Last Admin: 08/03/20 09:29 Dose: 40 mg Documented by: Metoprolol Tartrate (Metoprolol Tartrate 25 Mg Tablet) 12.5 mg PO BID [facility] Last Admin: 08/03/20 09:38 Dose: 12.5 mg Documented by: Mirtazapine (Mirtazapine 15 Mg Tablet) 7.5 mg PO QHS [facility] Last Admin: 08/02/20 23:39 Dose: 7.5 mg Documented by: Multivitamins/Minerals (Multivitamins,Ther W-Minerals Tablet) [facility] Last Admin: 08/03/20 09:25 Dose: 1 tablet Documented by: Nystatin (Nystatin Powder 15gm Bottle) 1 applic TOPICAL BID [facility]; Protocol Last Admin: 08/03/20 10:30 Dose: Not Given Documented by: Ondansetron HCl (Ondansetron 4 Mg/2 Ml Vial) 4 mg IV Q8H PRN PRN PRN Reason: NAUSEA/VOMITING Oxycodone HCl (Oxycodone 5 Mg Tablet) 15 mg PO Q4H PRN PRN PRN Reason: Pain 1-10 Last Admin: 08/03/20 13:23 Dose: 15 mg Documented by: Polyethylene Glycol (Polyethylene Glycol 3350 17 Gm Packet) 17 gm PO DAILY [facility] Last Admin: 08/03/20 09:32 Dose: Not Given Documented by: Potassium Chloride (Potassium Chloride Oral Tablet 10 Meq) [facility] Last Admin: 08/03/20 09:39 Dose: 10 meq Documented by: Senna/Docusate Sodium (Senna/Docusate Sodium 1 Tablet) 2 tablet PO BID [facility] Last Admin: 08/03/20 09:27 Dose: 2 tablet Documented by: Sodium Chloride (0.9% Saline Lock 10 Ml Syringe) 10 - 40 ml IV UD PRN PRN Reason: SALINE FLUSH Last Admin: 08/03/20 09:28 Dose: 10 ml Documented by: Tamsulosin HCl (Tamsulosin Hcl 0.4 Mg Capsule) 0.4 mg PO DAILY@1730 [facility] Last Admin: 08/02/20 23:40 Dose: 0.4 mg Documented by: Topiramate (Topiramate 25 Mg Tablet) 25 mg PO BID [facility] Last Admin: 08/03/20 09:28 Dose: 25 mg Documented by: Trazodone HCl (Trazodone 50 Mg Tablet) 150 mg PO QHS [facility] Last Admin: 08/02/20 23:38 Dose: 150 mg Documented by: Assessment/Plan All Active Problems (Last Reviewed 08/02/20 @ 21:[address] Catalino Greenwood MD) Debility (Acute) Scrotal pain (Acute) Right groin pain (Acute) Right hip joint effusion (Acute) Fever (Acute) Inflammatory arthritis (Acute) Recurrent umbilical hernia (Resolved) Rheumatoid arthritis advanced Gout Scapholunate advanced collapse left wrist Clinically at this point patient is having a migratory polyarthralgia he has chronic pain syndrome and I do not suspect septic joint here. As he is having a relatively pain-free arc of motion of both hip and knee on examination In regards to left wrist is likely having gouty flare on top of a severely arthritic wrist joint. Recommend wrist immobilization to help with pain verbal order given to nurse for wrist splint left Recommend follow-up with rheumatology. I will reach out to Dr. Rodríguez and update her on his state.
--- NOTE | 2020-08-03 14:51 | CASEMGMT ---
Social Work Note SW received message from Rosi at [facility] stating they are still waiving pre-certs for SNF due to COVID so as long as pt is going to in network facility and has days left, pt can admit to SNF and then SNF will submit paperwork within 24 hours of admission. SW placed a call to L[place] with TCU and updated her. Plan: Return to TCU when medically cleared [facility], [employer]
--- NOTE | 2020-08-03 15:13 | CASEMGMT ---
[facility] CM readmission review: Patient was admitted 07/13/20-07/18/20 for intractable right groin pain. See CM notes from 07/14 and 07/15 regarding discharge planning. Patient discharged to TCU for additional therapy. 08/02/20 patient sent to ED from TCU for elevated temps and concerned for possible joint infection. Ortho consulted and infected joint not suspected and may be possible gout flare up. Patient to return to TCU when medically ready.
[2020-08-03] MEDS: Tamsulosin HCl 0.4 MG Capsule PO (17:40)
[2020-08-03] MEDS: Menthol/Lanolin/Calamine/Znox 113 GM Tube 1 APPLIC TOPICAL (20:59)
[2020-08-03] MEDS: Nystatin Powder 15gm Bottle 1 APPLIC TOPICAL (21:01)
[2020-08-03] MEDS: Mirtazapine 15 MG Tablet 7.5 MG PO (21:03)
[2020-08-04] VITALS (41 sets, daily range): BP systolic 71–147; BP diastolic 43–73; PULSE 65–198; RESP 11–21; TEMP 36.4–37.2; O2SAT 94–991
[2020-08-04] MEDS: traZODone 50 MG Tablet 150 MG PO ×2 (00:04→23:14)
[2020-08-04] MEDS: Baclofen 10 MG Tablet PO ×3 (06:15→21:42)
--- NOTE | 2020-08-04 07:22 | PCM.PN.HOSP ---
Patient Problems: Active and Suspected Problems (Last Reviewed 08/02/20 @ 21:[address] Catalino Greenwood MD) Fever (Acute) Inflammatory arthritis (Acute) Reason for Visit: Left wrist and right groin pain Subjective: Patient seen still complains of significant left wrist pain as well as right groin pain. Was seen in consultation by Dr Benson's notes and recommendations reviewed Plan was for patient to have been transferred to a transitional care unit this a.m. however his blood pressure was found to be low with systolic in the 70s. Plans for discharge discontinued. Patient resuscitated with IV fluids. Objective: GENERAL: in some discomfort HEENT: Atraumatic; EYES; Anicteric, Normal Conjunctiva NECK; supple, normal thyroid, RESPIRATORY: Diminished to auscultation CARDIOVASCULAR: S1-S2 GI: soft, normoactive bowel sounds, : No Renal angle tenderness; EXTREMITIES: No edema, no clubbing, MUSCULOSKELETAL: Left right wrist swelling, movement restricted in right hip NEURO: Awake; no lateralizing signs. SKIN: No Rash PSYCH; Flat affect Vitals/I&O's: Vital Signs Temp Pulse Resp BP Pulse Ox 97.5 F L 88 18 147/65 H 96 08/04/20 03:00 08/04/20 03:00 08/04/20 03:00 08/04/20 03:00 08/04/20 03:00 Oxygen Delivery Method Room Air Weight: 57.198 kg Body Mass Index (BMI) 22.3 Intake and Output for Last 24 Hours 08/02/20 08/03/20 08/04/20 23:59 23:59 23:59 Intake Total 1600 / 1600 240 / 240 Output Total 600 / 600 1920 / 1920 820 / 820 Balance 1000 / 1000 -1680 / -1680 -820 / -820 Current Medications Acetaminophen (Acetaminophen 500 Mg Tablet) 1,000 mg PO Q6H PRN PRN PRN Reason: 1-10 pain/fever Last Admin: 08/03/20 13:24 Dose: 1,000 mg Documented by: Apixaban (Apixaban 2.5 Mg Tablet) 2.5 mg PO BID [facility] Last Admin: 08/03/20 21:01 Dose: 2.5 mg Documented by: Ascorbic Acid (Ascorbic Acid 500 Mg Tablet) 500 mg PO DAILY [facility] Last Admin: 08/03/20 09:30 Dose: 500 mg Documented by: Aspirin (Aspirin 81 Mg Tab.Chew) 81 mg PO DAILY@0800 [facility] Last Admin: 08/03/20 09:24 Dose: 81 mg Documented by: Baclofen (Baclofen 10 Mg Tablet) 10 mg PO TID [facility] Last Admin: 08/04/20 06:15 Dose: 10 mg Documented by: Bisacodyl (Bisacodyl 5 Mg Tablet) 10 mg PO DAILY PRN PRN PRN Reason: Constipation Last Admin: 08/03/20 13:23 Dose: 10 mg Documented by: Calamine/Phenol (Menthol/Lanolin/Calamine/Znox 113 Gm Tube) 1 applic TOPICAL BID [facility]; Protocol Last Admin: 08/03/20 20:59 Dose: 1 applicatio Documented by: Cyanocobalamin (Cyanocobalamin 500 Mcg Tablet) 500 mcg PO DAILY [facility] Last Admin: 08/03/20 09:30 Dose: 500 mcg Documented by: Finasteride (Finasteride 5 Mg Tablet) 5 mg PO DAILY [facility] Last Admin: 08/03/20 09:27 Dose: 5 mg Documented by: Folic Acid (Folic Acid 1 Mg Tablet) [facility] Last Admin: 08/03/20 09:24 Dose: 1.5 mg Documented by: Hydroxychloroquine Sulfate (Hydroxychloroquine 200 Mg Tablet) 200 [facility] Last Admin: 08/03/20 17:40 Dose: 200 mg Documented by: Sodium Chloride () 250 mls @ 15 mls/hr IV .[id number] PRN PRN Reason: Saline Flush Magnesium Hydroxide (Magnesium Hydroxide 30 Ml Udc) 30 ml PO DAILY PRN PRN PRN Reason: Constipation Melatonin (Melatonin 3 Mg Tablet) 3 mg PO QHS PRN PRN PRN Reason: INSOMNIA Last Admin: 08/02/20 23:37 Dose: 3 mg Documented by: Methotrexate (Methotrexate 2.5 Mg Tablet) 20 mg PO [facility] Methylprednisolone (Methylprednisolone 40 Mg/Ml Vial) 40 mg IV DAILY [facility] Last Admin: 08/03/20 09:29 Dose: 40 mg Documented by: Metoprolol Tartrate (Metoprolol Tartrate 25 Mg Tablet) 12.5 mg PO BID [facility] Last Admin: 08/03/20 21:01 Dose: 12.5 mg Documented by: Mirtazapine (Mirtazapine 15 Mg Tablet) 7.5 mg PO QHS [facility] Last Admin: 08/03/20 21:03 Dose: 7.5 mg Documented by: Multivitamins/Minerals (Multivitamins,Ther W-Minerals Tablet) 1 tablet [facility] Last Admin: 08/03/20 09:25 Dose: 1 tablet Documented by: Nystatin (Nystatin Powder 15gm Bottle) 1 applic TOPICAL BID [facility]; Protocol Last Admin: 08/03/20 21:01 Dose: 1 applicatio Documented by: Ondansetron HCl (Ondansetron 4 Mg/2 Ml Vial) 4 mg IV Q8H PRN PRN PRN Reason: NAUSEA/VOMITING Oxycodone HCl (Oxycodone 5 Mg Tablet) 15 mg PO Q4H PRN PRN PRN Reason: Pain 1-10 Last Admin: 08/03/20 22:38 Dose: 15 mg Documented by: Polyethylene Glycol (Polyethylene Glycol 3350 17 Gm Packet) 17 gm PO DAILY [facility] Last Admin: 08/03/20 09:32 Dose: Not Given Documented by: Potassium Chloride (Potassium Chloride Oral Tablet 10 Meq) 10 meq [facility] Last Admin: 08/03/20 09:39 Dose: 10 meq Documented by: Senna/Docusate Sodium (Senna/Docusate Sodium 1 Tablet) 2 tablet PO BID [facility] Last Admin: 08/03/20 21:00 Dose: 2 tablet Documented by: Sodium Chloride (0.9% Saline Lock 10 Ml Syringe) 10 - 40 ml IV UD PRN PRN Reason: SALINE FLUSH Last Admin: 08/03/20 09:28 Dose: 10 ml Documented by: Tamsulosin HCl (Tamsulosin Hcl 0.4 Mg Capsule) 0.4 mg PO DAILY@1730 [facility] Last Admin: 08/03/20 17:40 Dose: 0.4 mg Documented by: Topiramate (Topiramate 25 Mg Tablet) 25 mg PO BID [facility] Last Admin: 08/03/20 21:00 Dose: 25 mg Documented by: Trazodone HCl (Trazodone 50 Mg Tablet) 150 mg PO QHS [facility] Last Admin: 08/04/20 00:04 Dose: 150 mg Documented by: Medical Necessity - Tobacco Use Smoking Status: Former smoker Assessment/Plan All Active Problems (Last Reviewed 08/02/20 @ 21:[address] Catalino Greenwood MD) Debility (Acute) Scrotal pain (Acute) Right groin pain (Acute) Right hip joint effusion (Acute) Fever (Acute) Inflammatory arthritis (Acute) Recurrent umbilical hernia (Resolved) Patient is a 79-year-old gentleman with history of rheumatoid arthritis who presented with fever and left wrist and right groin pain 1. Acute inflammatory polyarthritis ?Patient has had chronic right groin pain for which he underwent IR drainage during his last admission cultures came back negative. Presented this time with left wrist joint involvement. Admitted to regular nursing floor started on steroids. Blood cultures were obtained -08/05/2019; Patient seen still complains of significant left wrist pain as well as right groin pain. Was seen in consultation by Dr Benson's notes and recommendations reviewed Plan was for patient to have been transferred to a transitional care unit this a.m. however his blood pressure was found to be low with systolic in the 70s. Plans for discharge discontinued. Patient resuscitated with IV fluids. 2. Chronic A. fib ?Patient is on metoprolol as well as systemic anticoagulation with Eliquis continued 3. Rheumatoid arthritis ?Patient is on hydroxychloroquine and methotrexate as well as Golimumab every 2 months. 4. BPH ?Patient is on Flomax and Proscar continue 5. DVT prophylaxis ?On Eliquis continue Inpatient E&M: 70882 Subs Hosp L2
[2020-08-04] MEDS: Aspirin 81 MG TAB.CHEW PO (09:15)
[2020-08-04] MEDS: Potassium Chloride Oral Tablet 10 MEQ PO (09:16)
[2020-08-04] MEDS: Multivitamins,Ther W-Minerals Tablet 1 TABLET PO (09:16)
[2020-08-04] MEDS: Hydroxychloroquine 200 MG Tablet PO (09:18)
[2020-08-04] MEDS: APIXABAN 2.5 MG TABLET PO (09:18)
[2020-08-04] MEDS: Folic Acid 1 MG Tablet 1.5 MG PO (09:18)
[2020-08-04] MEDS: Finasteride 5 MG Tablet PO (09:19)
[2020-08-04] MEDS: Topiramate 25 MG Tablet PO ×2 (09:20→21:41)
[2020-08-04] MEDS: Cyanocobalamin 500 MCG Tablet PO (09:21)
[2020-08-04] MEDS: Ascorbic Acid 500 MG Tablet PO (09:21)
[2020-08-04 09:27] LABS: Hematocrit 36.2 % (40-54); Hemoglobin 11.3 g/dL (13.0-16.5); Mean Corp Hgb Conc 31.2 g/dL (32-36); Mean Corpuscular Hgb 29.1 pg (27.0-32.0); Mean Corpuscular Volume 93.3 fL (80-94); Mean Platelet Vol. 9.1 fl (6.2-12.0); Platelet Count 236 K/mm3 (150-450); RBC Distribution Width CV 15.2 % (11.6-14.6); Red Blood Count 3.88 M/mm3 (4.6-6.2)
[2020-08-04] MEDS: Menthol/Lanolin/Calamine/Znox 113 GM Tube 1 APPLIC TOPICAL (09:27)
[2020-08-04] MEDS: Nystatin Powder 15gm Bottle 1 APPLIC TOPICAL (09:27)
[2020-08-04] MEDS: 0.9% Saline Lock 10 ML Syringe IV ×3 (09:28→12:01)
[2020-08-04 09:57] LABS: Anion Gap 9 (5-15); BUN 20 mg/dL (7-18); BUN/Creat Ratio 23.1 RATIO (10-20); Calcium,Total 8.8 mg/dL (8.5-10.1); Chloride 104 mmol/L (98-107); Creatinine, Serum 0.87 mg/dL (0.70-1.30); EST Glomerular Filtration Rate 91 mL/min (>60); Est Glom Filt Rate - Afr Amer 110 mL/min (>60); Estimated Creatinine Clearance 57.23 ml/min; Glucose 151 mg/dL (74-106); Magnesium 2.3 mg/dL (1.6-2.6); Potassium 3.3 mmol/L (3.5-5.1); Sodium Level 139 mmol/L (136-145)
--- NOTE | 2020-08-04 10:00 | CASEMGMT ---
Palliative screening tool completed at this time due to Lace/strata score of 3 and readmission. Patient meets criteria at this time. Hospitalist notified and agreeable for referral. ELROY COLLAZO sent referral to Palliative Care.
--- NOTE | 2020-08-04 10:35 | EKG12_ITS ---
Test Reason : TACHY Blood Pressure : / mmHG Vent. Rate : 202 BPM Atrial Rate : 312 BPM P-R Int : 000 ms QRS Dur : 088 ms QT Int : 232 ms P-R-T Axes : 000 050 -31 degrees QTc Int : 425 ms Supraventricular tachycardia Low voltage QRS Septal infarct , age undetermined Abnormal ECG Confirmed by RICO PERALES, WENDI ([id number]), book or script editor DEMARCUS CAMARENA ([id number]) on 08/05/2020 11:23:43 AM Referred By: HOWARD Confirmed By:WENDI GÓMEZ MD
[2020-08-04] MEDS: Adenosine 6 MG/2 ML Syringe IV (10:47)
[2020-08-04] MEDS: Adenosine 6 MG/2 ML Syringe 12 MG IV (10:51)
[2020-08-04] MEDS: Metoprolol Tartrate 5 MG/5 ML Vial IV (10:58)
--- NOTE | 2020-08-04 11:03 | NURSING ---
report called to [facility]
--- NOTE | 2020-08-04 11:19 | ECHOCS_ITS ---
Reason For Study: ARRHYTHMIA Procedure This was a 2D Doppler, Color Flow transthoracic echocardiogram. The study was technically difficult. Contrast injection was performed. Exam performed portable in ICU/CCU. Left Ventricle Normal LV size. Mild segmental systolic dysfunction (see wall motion). The estimated ejection fraction is 50 %. Mid-Anterior : Hypokinetic. Anterior [place] : Akinetic. Inferior [place] : Dyskinetic. Lateral [place] : Akinetic. Septal [place] : Akinetic. Right Ventricle Normal RV size. Normal systolic function. Atria Normal left atrium. Normal right atrium. No doppler evidence for ASD. Mitral Valve There is no mitral annular calcification. Mild diffuse mitral valve thickening. The mitral valve chordae are thickened and/or calcified. Mild (1+) mitral valve insufficiency. Tricuspid Valve Normal tricuspid valve. Mild (1+) tricuspid valve insufficiency. Right ventricular systolic pressure estimated to be 38 mmHg. Aortic Valve Trisinus/trileaflet aortic valve. Mild diffuse aortic valve thickening. Mild diffuse aortic valve calcification. Mild aortic stenosis. Trivial aortic valve insufficiency. Pulmonic Valve The pulmonic valve is not well visualized. Trivial pulmonic valve insufficiency. Great Vessels Normal sized aortic root. Pericardium/Pleural Trivial pericardial effusion. There are no echocardiographic indications of cardiac tamponade. Medication Diluted definity 2ml given slow IV push to enhance endocardial definition. MMode/2D Measurements & Calculations LVIDd: 4.0 cm IVSd: 0.84 cm LVOT diam: 2.0 cm LVIDs: 3.1 cm LVPWd: 0.95 cm RVDd: 3.5 cm FS: 22.7 % LVOT area: 3.2 cm2 Ao root diam: 3.0 cm LAV(MOD-bp): 66.2 ml LVAd ap4: 33.2 cm2 LAV(MOD-bp) Indexed: 41.7 ml/m2 EDV(MOD-sp4): 97.7 ml LAV(MOD-sp2): 80.4 ml EDV(sp4-el): 102.8 ml LAV(MOD-sp4): 54.4 ml LVAs ap4: 24.7 cm2 ESV(MOD-sp4): 57.9 ml ESV(sp4-el): 61.1 ml EF(MOD-sp4): 40.7 % EF(sp4-el): 40.6 % SV(MOD-sp4): 39.8 ml SV(sp4-el): 41.8 ml Aortic Valve Planimetry: 1.3 cm2 LA A4 area: 19.3 cm2 LA dimension(2D): 3.8 cm RA A4 area: 19.7 cm2 Time Measurements MV dec time: 0.22 sec Doppler Measurements & Calculations MV E max pardeep: 120.9 cm/sec Lat Peak E' Pardeep: 7.3 cm/sec Med Peak E' Pardeep: 6.7 cm/sec MV A max pardeep: 70.3 cm/sec E/E' lat: 16.5 E/E' med: 18.1 MV E/A: 1.7 Ao V2 max: 194.5 cm/sec LV V1 max: 107.3 cm/sec SV(LVOT): 71.6 ml Ao max P.1 mmHg LV V1 max P.6 mmHg Ao V2 mean: 138.8 cm/sec LV V1 mean P.2 mmHg Ao mean P.7 mmHg LV V1 mean: 69.0 cm/sec Ao V2 VTI: 41.3 cm LV V1 VTI: 22.7 cm LEYLA(I,D): 1.7 cm2 LEYLA(V,D): 1.7 cm2 PA V2 max: 80.7 cm/sec TR max pardeep: 273.7 cm/sec TR max P.0 mmHg Interpretation Summary The study was technically difficult. Contrast injection was performed. Mild segmental systolic dysfunction (see wall motion). The estimated ejection fraction is 50 %. Mild diffuse mitral valve thickening. The mitral valve chordae are thickened and/or calcified. Mild (1+) mitral valve insufficiency. Mild (1+) tricuspid valve insufficiency. Mild aortic stenosis. Trivial aortic valve insufficiency. Trivial pulmonic valve insufficiency. Trivial pericardial effusion. There are no echocardiographic indications of cardiac tamponade. Right ventricular systolic pressure estimated to be 38 mmHg. Transmitral diastolic flow velocities suggest diastolic dysfunction (pseudonormal pattern). Ordering Physician: Steve Vásquez Referring Physician: ADOLFO ROMEO Performed By: Kathi Mcdonough RDCS
--- NOTE | 2020-08-04 11:38 | NURSING ---
contacted daughter about transfer
[2020-08-04] MEDS: dilTIAZem 25 MG/5 ML Vial 20 MG IV BOLUS (11:40)
--- NOTE | 2020-08-04 11:46 | EKG12_ITS ---
Test Reason : ARRYTHMIA Blood Pressure : / mmHG Vent. Rate : 084 BPM Atrial Rate : 084 BPM P-R Int : 216 ms QRS Dur : 070 ms QT Int : 404 ms P-R-T Axes : 076 086 102 degrees QTc Int : 477 ms Sinus rhythm with 1st degree A-V block with occasional Premature ventricular complexes and Fusion com plexes Low voltage QRS Lateral injury pattern When compared with ECG of 04-AUG-2020 10:35, MANUAL COMPARISON REQUIRED, DATA IS UNCONFIRMED Confirmed by AMOR PERALES, PER ([id number]), editor managing director DEMARCUS CAMARENA ([id number]) on 08/06/2020 11:09:26 AM Referred By: HOWARD Confirmed By:PER CHINCHILLA MD
--- NOTE | 2020-08-04 12:55 | NURSING ---
ELROY Francis in [employer] called for Anup[facility] page, he is finishing cardioversion and will call back.
[2020-08-04] MEDS: Amiodarone 360 MG in Dextrose 5% Viaflo Bag 192.8 ML 33.3 MG CONT INF (13:53)
[2020-08-04] MEDS: Potassium Chloride Oral Tablet 20 MEQ 40 MEQ PO (13:55)
[2020-08-04 15:09] LABS: Mucous, Urine 0 SEEN /hpf (<or=2+)
[2020-08-04 15:17] LABS: Color, Urine Yellow (Yellow); Glucose, Dipstick Normal (Normal); Ketone-Dipstick Negative (Negative); Leukocyte Esterase-Dipstick 500 /ul (Negative); Nitrite-Dipstick Negative (Negative); Occult Blood-Urine 150 /ul (Negative); Protein-Dipstick 15 mg/dl (Negative); Urine Bilirubin Dipstick Negative (Negative); Urine Clarity Sl. Cloudy (Clear); Urine Urobilinogen Normal (Normal); Urine pH 6.5 (5.0 - 8.0)
[2020-08-04 15:24] LABS: Bacteria 1+ /hpf (None Seen); Red Blood Cells-Urine 10-25 SEEN /hpf (0-5); Squamous Epithelial Cells - UA 0-5 SEEN /hpf (0-5); White Blood Cells 25-50 SEEN /hpf (0-5)
--- NOTE | 2020-08-04 16:58 | CON.PCM_ITS ---
Problem List (1) SVT (supraventricular tachycardia) Status: Acute (2) Atrial fibrillation Status: Chronic Qualifiers: Atrial fibrillation type: paroxysmal Qualified Code(s): I48.0 - Paroxysmal atrial fibrillation (3) NSTEMI (non-ST elevated myocardial infarction) Status: Acute (4) GERD (gastroesophageal reflux disease) Status: Chronic (5) Rheumatoid arthritis Status: Chronic (6) Fever Status: Acute Reason for Consult Date of Consultation: 08/04/20 History of Present Illness: The patient is a 79 year old male who is being referred for concerns of SVT superimposed upon a history of PAF, with findings concerning for non-STEMI superimposed upon a history of GERD, rheumatoid arthritis, and fever. The patient has had a history of SVT and PAF in the past. He has been on medical t herapy for this with low-dose beta-blockers and anticoagulant therapy with apixaban. He has undergone previous cardiovascular evaluation past with a transthoracic echocardiogram and an exercise tolerance test. He has not had a diagnostic cardiac catheterization performed. He states he has been undergoing evaluation for his rheumatoid arthritis including orthopedic surgical procedures. He notes ever since his evaluation and care in April 2020 he has had progressive issues. He has had ongoing issues with his musculoskeletal discomfort and fevers. He has been undergoing evaluation for such with concerns of COVID-19 which has been negative x2 (including today) and concerns of a possible UTI as well as concerns of fevers being related to his rheumatologic related issues. 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 He was noted to be treated with adenosine 6 mg IV x1 and 12 mg IV x1 with transient slowing/interruption of his cardiac dysrhythmia but returned to his PSVT. He was then placed on IV diltiazem again with transient return to sinus rhythm with intermittent PSVT. He has since then been placed on additional medical therapy with IV amiodarone. During this time he has had intermittent low blood pressures. He has not complained of ongoing chest discomfort or difficulty breathing. There is been no report of orthopnea or PND. There is been no loss of consciousness. He was placed in the ICU based upon the aforementioned concerns. He has had cardiac enzymes performed which have turned positive. His ECG demonstrated the appearance of underlying SVT with low voltage QRS in the limb leads and a septal IL pattern of indeterminate age cannot be excluded. [] Past Medical History Allergies/Adverse Reactions: Allergies No Known Allergies Allergy (Verified 08/02/20 17:43) Home Medications: Ambulatory Orders Medication Instructions Recorded Hydroxychloroquine [Plaquenil] 200 mg PO BIDCM 10/09/14 Trazodone HCl 150 mg PO QHS 09/22/17 Finasteride [Proscar] 5 mg PO DAILY 12/10/18 methotrexate sodium 2.5 mg tablet 20 mg PO JONES 01/29/19 ascorbic acid (vitamin C) 500 mg 500 mg PO DAILY tab 01/30/19 chewable tablet golimumab 12.5 mg/mL intravenous 135 mg IV [id number] ml 01/30/19 solution sgmbwqfo-xgcqctnc-jcoev acid 400 1 tab PO DAILY 04/06/20 mcg-vit K 20 mcg-lycop 300 mcg tablet Apixaban [Eliquis] 2.5 mg PO BID #60 tab 06/01/20 Aspirin [Aspirin, Baby] 81 mg PO DAILY@0800 07/13/20 Cyanocobalamin (Vitamin B-12) 500 mcg PO DAILY 07/13/20 [Vitamin B-12] Topiramate [Topamax] 25 mg PO BID 07/13/20 Metoprolol Tartrate [Lopressor 12.5 mg PO BID 07/18/20 (beta santiago)] Mirtazapine [Remeron] 7.5 mg PO QHS 07/18/20 Polyethylene Glycol 3350 [Miralax] 17 gm PO DAILY 07/18/20 Senna/Docusate Sodium [Senokot-S] 2 tab PO BID 07/18/20 Tamsulosin HCl [Flomax] 0.4 mg PO DAILY@1730 07/18/20 Acetaminophen [Tylenol Extra 1,000 mg PO Q6H PRN PRN 08/02/20 Strength] Baclofen [Lioresal] 10 mg PO TID 08/02/20 Bisacodyl [Dulcolax] 10 mg PO DAILY PRN PRN 08/02/20 Folic Acid 1.5 mg PO DAILY 08/02/20 Magnesium Hydroxide [Milk Of 30 ml PO DAILY PRN PRN 08/02/20 Magnesia] Menthol/Lanolin/Calamine/Znox 1 applic TOPICAL BID 08/02/20 [Calmoseptine Ointment] Nystatin Powder [Mycostatin Powder] 1 applic TOPICAL BID 08/02/20 Oxycodone [Oxyir] 15 mg PO Q4H PRN PRN 08/02/20 Potassium Chloride Oral Tablet 10 meq PO DAILY 08/02/20 [K-Dur] Past Medical History (Chronic Problems): Chronic Problems (Last Reviewed 08/02/20 @ 21:[address] Catalino Greenwood MD) Atrial fibrillation (Chronic) Lumbar spinal stenosis (Chronic) Atrial fibrillation with rapid ventricular response (Chronic) Muscle spasm (Chronic) GERD (gastroesophageal reflux disease) (Chronic) Rheumatoid arthritis (Chronic) Insomnia (Chronic) BPH (benign prostatic hyperplasia) (Chronic) Appetite loss (Chronic) Abnormal EKG (Chronic) Abnormal echocardiogram (Chronic) Left ventricular hypokinesis (Chronic) Leg pain, bilateral (Chronic) Edema (Chronic) Surgical History: adenoidectomy, cataract, cholecystectomy - Laparoscopic., colectomy - Left., herniorrhaphy - Umbilical, Inguinal., rotator cuff repair - Bilateral., - - Hemorrhoidectomy, Vasectomy. Psychiatric History: No pertinent psych hx - *Family History Maternal Family History: Family History (Last Reviewed 08/03/20 @ 02:[address] Catalino Greenwood MD) Father CVA (cerebral vascular accident) Brother CAD (coronary artery disease) Mother CVA (cerebral vascular accident) Grandfather Cancer History Items: No pertinent history Paternal Family History: Family History (Last Reviewed 08/03/20 @ 02:[address] Catalino Greenwood MD) Father CVA (cerebral vascular accident) Brother CAD (coronary artery disease) Mother CVA (cerebral vascular accident) Grandfather Cancer History Items: No pertinent history Lives: Alone Smoking Status: Former smoker Alcohol: None Drugs: None Review of Systems - Review of Systems General: Denies: Fever, Night Sweats, Fatigue Cardiovascular: Reports: Palpitations. Denies: Chest Discomfort, Shortness of Breath, Orthopnea, PND, Peripheral Edema, Lightheadedness, Dizziness, Near Syncope, Syncope Respiratory: Denies: Cough, Sputum Production, Hemoptysis Gastrointestinal: Denies: Hematemesis, Hematochezia, Melena Genitourinary: Denies: Dysuria, Hematuria Skin: Denies: Rash Subjectve: Is a 79-year-old white male who appears to be resting comfortably at the moment in no acute distress. Objective: Vital Signs Temp Pulse Resp BP Pulse Ox 99.0 F 70 11 L 96/62 98 08/04/20 12:00 08/04/20 16:15 08/04/20 16:00 08/04/20 16:15 08/04/20 16:00 Oxygen Delivery Method Room Air Weight: 126 lb 1.6 oz Body Mass Index (BMI) 22.3 Intake and Output for Last 24 Hours 08/02/20 08/03/20 08/04/20 23:59 23:59 23:59 Intake Total 1600 / 1600 240 / 240 1270.75 / 1270.75 Output Total 600 / 600 1920 / 1920 845 / 845 Balance 1000 / 1000 -1680 / -1680 425.75 / 425.75 General: Awake, Alert, Oriented x 3, Cooperative, No Acute Distress HEENT: Atraumatic, Normocephalic, PERRL, EOMI, Sclera Non Icteric Neck: Supple, Good ROM, No JVD Chest Wall: Pectus Excavatum Lungs: Clear to auscultation Cardiovascular: Regular Rhythm, Normal S1, Normal S2 Murmur Murmur: Grade 3/6, Harsh, Mid Systolic, LLSB, LVOT Vascular: R Carotid Artery Bruits Abdomen: Bowel Sounds Present, Soft Psych/Mental Status: Appropriate 08/04/20 09:20: WBC 14.0 H, RBC 3.88 L, Hgb 11.3 L, Hct 36.2 L, MCV 93.3, MCH 29.1, MCHC 31.2 L, Plt Count 236, MPV 9.1 08/04/20 09:20: Sodium 139, Potassium 3.3 L, Chloride 104, Carbon Dioxide 26.0, Anion Gap 9, BUN 20 H, Creatinine 0.87, Est GFR (MDRD) Af Amer 110, Est GFR (MDRD) Non-Af 91, BUN/Creatinine Ratio 23.1 H, Glucose 151 H, Calcium 8.8, Magnesium 2.3 08/04/20 12:00: Troponin I 0.330 H 08/04/20 14:00: Troponin I 1.930 H* 08/04/20 15:00: Urine Color Yellow, Urine Clarity Sl. Cloudy, Urine pH 6.5, Ur Specific [place] 1.010, Urine Protein 15 H, Urine Glucose (UA) Normal, Urine Ketones Negative, Urine Occult Blood 150 H, Urine Nitrite Negative, Urine Bilirubin Negative, Urine Urobilinogen Normal, Ur Leukocyte Esterase 500 H, Urine RBC 10-25 SEEN, Urine WBC 25-50 SEEN Rhythm: Sinus rhythm EKG: As noted above ECHO: ??2019 Interpretation Summary The estimated ejection fraction is 50-55 %. No evidence for diastolic dysfunction. Mild (1+) mitral valve insufficiency. Mild diffuse aortic valve thickening. Small pericardial effusion. [place] : Hypokinetic. Stress Test Report Date: 03/04/2019 Procedure: Exercise tolerance test Indications: Abnormal EKG Consent: Per the patient Procedure: The patient exercised on a Sammy protocol for 4 minutes achieving a peak heart rate of 133 bpm (92 % predicted maximal heart rate) with a peak blood pressure 140/70 mmHg and a peak MET capacity of approximately 5.8 mET's. The baseline ECG demonstrated normal sinus rhythm, possible prior anterior IL. The peak exercise ECG demonstrated no significant ischemic changes. Patient had occasional PACs and PVCs during exercise and in recovery period. The functional capacity was considered average for age. The patient had no complaint of chest discomfort during exercise or recovery. The examination was discontinued secondary to dyspnea, leg discomfort. Impression: 1. Technically adequate (percent predicted maximal heart rate greater than 85%) exercise tolerance test 2. Exercise stress test is negative for exercise-induced chest pain or EKG changes of ischemia. Functional capacity is average for age CXR: IMPRESSION: No acute thoracic pathology. Electronically Signed: Richard Baxter MD at 19:27 EST Assessment/Plan 1. PSVT The patient has a history of PSVT. He appears to had recurrence of that today. It did initially appear to respond to IV adenosine. However it took additional medication with IV diltiazem to assist in bringing it under better control and returning to sinus rhythm. He is currently on additional medical therapy with IV amiodarone. At the moment he is being followed. His cardiac enzymes have been followed. They have turned positive. He has been asked to have reevaluation with a transthoracic echocardiogram. Over time he will need continued medical management. He may need to be considered in the future for a tertiary care center evaluation for possible EPS/RFA. 2. Paroxysmal atrial fibrillation He apparently has a history of paroxysmal atrial fibrillation as well. He has been on medical therapy with low-dose beta-blockers and low-dose anticoagulant therapy. 3. Non-STEMI He does have abnormal cardiac enzymes. This is compatible with a non-STEMI. This may be a type II event secondary to supply demand mismatch from his rapid rate and his low blood pressures. He is being followed. His cardiac enzymes and ECG will be followed. An echocardiogram has been requested to review his left ventricular wall motion and systolic function. He will also need considered for further evaluation with diagnostic cardiac catheterization when he is felt to be symptomatically and hemodynamically stable and hopefully can be without his anticoagulant therapy for period of time to minimize the risk of procedure related hemorrhagic events. 4. GERD He will continue medical therapy per internal medicine. 5. Rheumatoid arthritis He has been undergoing evaluation and care for such by internal medicine and his other physicians. 6. Fever There have been concerns that his fever may be related to his rheumatologic related issues. However now he is being evaluated for possible UTI. He has been tested for COVID-19 twice once in June and once today. Both COVID-19 test were reported as negative. Comment: The patient's case has been discussed and reviewed with the patient and Dr. Vásquez. This note was generated using a voice recognition system and there may be incorrect words, spelling or punctuation that were not noted when reviewing the office note prior to saving.
[2020-08-04] MEDS: Tamsulosin HCl 0.4 MG Capsule PO (17:02)
[2020-08-04] MEDS: HEPARIN/D5w 25,000 UNITS 25,000 UNITS/250 ML IV.SOLN. 8 UNITS IV (18:25)
[2020-08-04] MEDS: Clopidogrel Bisulfate 300 MG Tablet PO (18:55)
[2020-08-04 19:07] LABS: International Normalized Ratio 1.2; Prothrombin Time (Protime)PT. 14.9 SECONDS (11.7-14.9)
[2020-08-04 19:08] LABS: Partial Thromboplast Time 35.4 Seconds (24.1-36.2)
[2020-08-04] MEDS: Amiodarone 360 MG in Dextrose 5% Viaflo Bag 192.8 ML 16.7 MG CONT INF (20:00)
[2020-08-04] MEDS: Ceftriaxone 1 GM/50 ML BAG IV (21:37)
[2020-08-04] MEDS: Mirtazapine 15 MG Tablet 7.5 MG PO (21:40)
[2020-08-04] MEDS: Metoprolol Tartrate 25 MG Tablet 12.5 MG PO (21:41)
[2020-08-04] MEDS: Acetaminophen 500 MG Tablet 1000 MG PO (21:55)
[2020-08-04 23:43] LABS: Partial Thromboplast Time 183.3 Seconds (24.1-36.2)
[2020-08-05] VITALS (29 sets, daily range): BP systolic 90–134; BP diastolic 50–83; PULSE 57–89; RESP 12–26; TEMP 36.6–37.2; O2SAT 93–99; BMI 22.8
[2020-08-05] MEDS: Baclofen 10 MG Tablet PO ×3 (04:53→22:20)
[2020-08-05] MEDS: oxyCODONE 5 MG Tablet 15 MG PO ×3 (04:53→22:17)
[2020-08-05 05:23] LABS: Hematocrit 32.5 % (40-54); Hemoglobin 10.6 g/dL (13.0-16.5); Mean Corp Hgb Conc 32.6 g/dL (32-36); Mean Corpuscular Hgb 30.4 pg (27.0-32.0); Mean Corpuscular Volume 93.1 fL (80-94); Platelet Count 219 K/mm3 (150-450); RBC Distribution Width CV 15.6 % (11.6-14.6); RBC Distribution Width SD 52.5 fl (35.1-43.9); Red Blood Count 3.49 M/mm3 (4.6-6.2); White Blood Count 10.3 K/mm3 (4.4-11.0)
[2020-08-05 05:33] LABS: Partial Thromboplast Time 40.7 Seconds (24.1-36.2)
[2020-08-05 05:42] LABS: AST(SGOT) 71 U/L (15-37); Alanine Aminotransfer ALT/SGPT 109 U/L (16-61); Albumin, Serum 2.3 g/dL (3.2-5.0); Alkaline Phosphatase 229 U/L (45-117); Anion Gap 7 (5-15); BUN 17 mg/dL (7-18); BUN/Creat Ratio 26.2 RATIO (10-20); Bilirubin, Direct 0.12 mg/dL (0.00-0.30); Calcium,Total 8.5 mg/dL (8.5-10.1); Chloride 113 mmol/L (98-107); Cholesterol 117 mg/dL (200); Creatinine, Serum 0.65 mg/dL (0.70-1.30); EST Glomerular Filtration Rate 126 mL/min (>60); Est Glom Filt Rate - Afr Amer 153 mL/min (>60); Estimated Creatinine Clearance 49.79 ml/min; Globulin 3.8 g/dL (2.2-4.2); Glucose 105 mg/dL (74-106); High Density Lipoprotein 43 mg/dL; Magnesium 2.3 mg/dL (1.6-2.6); Potassium 3.5 mmol/L (3.5-5.1); Protein, Total 6.1 g/dL (6.4-8.2); Sodium Level 145 mmol/L (136-145); Triglycerides 92 mg/dL; Very Low Density Lipoprotein 18 mg/dL (5-40)
--- NOTE | 2020-08-05 05:55 | EKG12_ITS ---
Test Reason : AM EKG Blood Pressure : / mmHG Vent. Rate : 079 BPM Atrial Rate : 079 BPM P-R Int : 184 ms QRS Dur : 092 ms QT Int : 394 ms P-R-T Axes : 034 009 057 degrees QTc Int : 451 ms Normal sinus rhythm Low voltage QRS Borderline ECG When compared with ECG of 04-AUG-2020 11:46, MANUAL COMPARISON REQUIRED, DATA IS UNCONFIRMED Confirmed by AMOR PERALES, PER ([id number]), senior editor DEMARCUS CAMARENA ([id number]) on 08/06/2020 11:06:15 AM Referred By: ALISTAIR Confirmed By:EPR CHINCHILLA MD
[2020-08-05] MEDS: Amiodarone 360 MG in Dextrose 5% Viaflo Bag 192.8 ML 16.7 MG CONT INF (06:31)
[2020-08-05] MEDS: Heparin Injection (Vial) 5,000 UNIT/ML VIAL IV (06:34)
--- NOTE | 2020-08-05 07:33 | PN_ITS ---
Patient Problems: Active and Suspected Problems (Last Reviewed 08/02/20 @ 21:[address] Catalino Greenwood MD) SVT (supraventricular tachycardia) (Acute) Fever (Acute) Inflammatory arthritis (Acute) NSTEMI (non-ST elevated myocardial infarction) (Acute) Fever (Acute) Reason for Visit: SVT hypotension Subjective: Patient was found to be relatively hypotensive the day prior with blood pressure of systolic in the 70s while on the regular floor. He later went into SVT he did receive adenosine 6 mg followed by 12 mg patient did not convert, subsequently transferred to the intensive care unit. Did receive Cardizem went back into sinus rhythm with improvement in his blood pressure but went back into SVT cardiology consulted patient started on amiodarone Patient was found to have elevated troponin consistent with acute non-STEMI. Patient was on Eliquis discontinued started on heparin with plans for patient to undergo left heart catheterization on 1120 Patient also did complain of dysuria urinalysis obtained was consistent with acute cystitis subsequently started on Rocephin Objective: GENERAL: in some discomfort HEENT: Atraumatic; EYES; Anicteric, Normal Conjunctiva NECK; supple, normal thyroid, RESPIRATORY: Diminished to auscultation CARDIOVASCULAR: S1-S2 GI: soft, normoactive bowel sounds, : No Renal angle tenderness; EXTREMITIES: No edema, no clubbing, MUSCULOSKELETAL: Left right wrist swelling, movement restricted in right hip NEURO: Awake; no lateralizing signs. SKIN: No Rash PSYCH; Flat affect Vitals/I&O's: Vital Signs Temp Pulse Resp BP Pulse Ox 98.4 F 57 L 20 H 101/55 L 94 08/05/20 04:00 08/05/20 07:00 08/05/20 07:00 08/05/20 07:00 08/05/20 07:00 Oxygen Delivery Method Room Air Weight: 58.5 kg Body Mass Index (BMI) 22.3 Intake and Output for Last 24 Hours 08/03/20 08/04/20 08/05/20 23:59 23:59 23:59 Intake Total 240 / 240 1674.50 / 1790.97 281.80 / 281.80 Output Total 1920 / 1920 2145 / 2145 1250 / 1250 Balance -1680 / -1680 -470.50 / -354.03 -968.20 / -968.20 Microbiology Past 72 Hours 08/04/20 14:00 Mucosa - Nasopharyngeal SARS-CoV-2 Antigen (Rapid) - Final Laboratory Results 08/04/20 09:20: WBC 14.0 H, RBC 3.88 L, Hgb 11.3 L, Hct 36.2 L, MCV 93.3, MCH 29.1, MCHC 31.2 L, RDW Std Deviation 52.0 H, RDW Coeff of Jaciel 15.2 H, Plt Count 236, MPV 9.1 08/04/20 09:20: Sodium 139, Potassium 3.3 L, Chloride 104, Carbon Dioxide 26.0, Anion Gap 9, BUN 20 H, Creatinine 0.87, Estim Creat Clear Calc 57.23, Est GFR (MDRD) Af Amer 110, Est GFR (MDRD) Non-Af 91, BUN/Creatinine Ratio 23.1 H, Glucose 151 H, Calcium 8.8, Magnesium 2.3 08/04/20 12:00: Troponin I 0.330 H, TSH 1.70 08/04/20 14:00: Troponin I 1.930 H* 08/04/20 15:00: Urine Color Yellow, Urine Clarity Sl. Cloudy, Urine pH 6.5, Ur Specific [place] 1.010, Urine Protein 15 H, Urine Glucose (UA) Normal, Urine Ketones Negative, Urine Occult Blood 150 H, Urine Nitrite Negative, Urine Bilirubin Negative, Urine Urobilinogen Normal, Ur Leukocyte Esterase 500 H, Urine RBC 10-25 SEEN, Urine WBC 25-50 SEEN, Ur Squamous Epith Cells 0-5 SEEN, Urine Bacteria 1+, Urine Mucus 0 SEEN 08/04/20 17:10: Troponin I 3.820 H* 08/04/20 18:15: PT 14.9, INR 1.2, APTT 35.4 08/04/20 23:20: APTT 183.3 H* 08/05/20 05:15: WBC 10.3, RBC 3.49 L, Hgb 10.6 L, Hct 32.5 L, MCV 93.1, MCH 30.4, MCHC 32.6, RDW Std Deviation 52.5 H, RDW Coeff of Jaciel 15.6 H, Plt Count 219, MPV 10.0 08/05/20 05:15: Sodium 145, Potassium 3.5, Chloride 113 H, Carbon Dioxide 25.0, Anion Gap 7, BUN 17, Creatinine 0.65 L, Estim Creat Clear Calc 49.79, Est GFR (MDRD) Af Amer 153, Est GFR (MDRD) Non-Af 126, BUN/Creatinine Ratio 26.2 H, Glucose 105, Calcium 8.5, Magnesium 2.3, Total Bilirubin 0.30, Direct Bilirubin 0.12, AST 71 H, ALT 109 H, Alkaline Phosphatase 229 H, Total Protein 6.1 L, Albumin 2.3 L, Globulin 3.8, Triglycerides 92, Cholesterol 117, LDL Cholesterol 56, VLDL Cholesterol 18, HDL Cholesterol 43 08/05/20 05:15: APTT 40.7 H 08/05/20 05:15: Troponin I Pending Current Medications Acetaminophen (Acetaminophen 500 Mg Tablet) 1,000 mg PO Q6H PRN PRN PRN Reason: 1-10 pain/fever Last Admin: 08/04/20 21:55 Dose: 1,000 mg Documented by: Ascorbic Acid (Ascorbic Acid 500 Mg Tablet) 500 mg PO DAILY [facility] Last Admin: 08/04/20 09:21 Dose: 500 mg Documented by: Aspirin (Aspirin 81 Mg Tab.Chew) 81 mg PO DAILY@0800 [facility] Last Admin: 08/04/20 09:15 Dose: 81 mg Documented by: Baclofen (Baclofen 10 Mg Tablet) 10 mg PO TID [facility] Last Admin: 08/05/20 04:53 Dose: 10 mg Documented by: Bisacodyl (Bisacodyl 5 Mg Tablet) 10 mg PO DAILY PRN PRN PRN Reason: Constipation Last Admin: 08/03/20 13:23 Dose: 10 mg Documented by: Calamine/Phenol (Menthol/Lanolin/Calamine/Znox 113 Gm Tube) 1 applic TOPICAL BID [facility]; Protocol Last Admin: 08/04/20 23:21 Dose: Not Given Documented by: Clopidogrel Bisulfate (Clopidogrel Bisulfate 75 Mg Tablet) 75 mg PO DAILY [facility] Cyanocobalamin (Cyanocobalamin 500 Mcg Tablet) 500 mcg PO DAILY [facility] Last Admin: 08/04/20 09:21 Dose: 500 mcg Documented by: Finasteride (Finasteride 5 Mg Tablet) 5 mg PO DAILY [facility] Last Admin: 08/04/20 09:19 Dose: 5 mg Documented by: Folic Acid (Folic Acid 1 Mg Tablet) 1.5 mg PO DAILYCM [facility] Last Admin: 08/04/20 09:18 Dose: 1.5 mg Documented by: Heparin Sodium (Porcine) (Heparin Injection (Vial) 5,000 Unit/Ml Vial) 0 unit IV UD PRN; Protocol PRN Reason: dose adjustment Last Admin: 08/05/20 06:34 Dose: 1,000 unit Documented by: Sodium Chloride () 250 mls @ 15 mls/hr IV .[id number] PRN PRN Reason: Saline Flush Diltiazem HCl 125 mg/ Dextrose 125 mls @ 5 mls/hr IV .Q25H [facility]; Protocol Last Titration: 08/05/20 07:00 Dose: 5 mg/hr, 5 mls/hr Documented by: Amiodarone HCl 360 mg/ (Dextrose) 200 mls @ 16.667 mls/hr CONT INF .Q12H [facility] Stop: 08/05/20 13:29 Last Admin: 08/05/20 06:31 Dose: 0.5 mg/min, 16.7 mls/hr Documented by: Heparin Sodium/Dextrose () 25,000 units in 250 mls @ 8 mls/hr IV .[id number] [facility]; Protocol Last Titration: 08/05/20 06:33 Dose: 600 units/hr, 6 mls/hr Documented by: Ceftriaxone Sodium (Rocephin) 1 gm in 50 mls @ 100 mls/hr IV Q24 [facility] Last Infusion: 08/04/20 22:07 Dose: Infused Documented by: Magnesium Hydroxide (Magnesium Hydroxide 30 Ml Udc) 30 ml PO DAILY PRN PRN PRN Reason: Constipation Melatonin (Melatonin 3 Mg Tablet) 3 mg PO QHS PRN PRN PRN Reason: INSOMNIA Last Admin: 08/02/20 23:37 Dose: 3 mg Documented by: Methotrexate (Methotrexate 2.5 Mg Tablet) 20 mg PO Bui [facility] Methylprednisolone (Methylprednisolone 40 Mg/Ml Vial) 40 mg IV DAILY [facility] Last Admin: 08/04/20 09:27 Dose: 40 mg Documented by: Metoprolol Tartrate (Metoprolol Tartrate 25 Mg Tablet) 12.5 mg PO BID [facility] Last Admin: 08/04/20 21:41 Dose: 12.5 mg Documented by: Mirtazapine (Mirtazapine 15 Mg Tablet) 7.5 mg PO QHS [facility] Last Admin: 08/04/20 21:40 Dose: 7.5 mg Documented by: Multivitamins/Minerals (Multivitamins,Ther W-Minerals Tablet) [facility] Last Admin: 08/04/20 09:16 Dose: 1 tablet Documented by: Nystatin (Nystatin Powder 15gm Bottle) 1 applic TOPICAL BID [facility]; Protocol Last Admin: 08/04/20 23:21 Dose: Not Given Documented by: Ondansetron HCl (Ondansetron 4 Mg/2 Ml Vial) 4 mg IV Q8H PRN PRN PRN Reason: NAUSEA/VOMITING Oxycodone HCl (Oxycodone 5 Mg Tablet) 15 mg PO Q4H PRN PRN PRN Reason: Pain 1-10 Last Admin: 08/05/20 04:53 Dose: 15 mg Documented by: Polyethylene Glycol (Polyethylene Glycol 3350 17 Gm Packet) 17 gm PO DAILY [facility] Last Admin: 08/04/20 09:19 Dose: Not Given Documented by: Potassium Chloride (Potassium Chloride Oral Tablet 10 Meq) [facility] Last Admin: 08/04/20 09:16 Dose: 10 meq Documented by: Senna/Docusate Sodium (Senna/Docusate Sodium 1 Tablet) 2 tablet PO BID [facility] Last Admin: 08/04/20 21:33 Dose: Not Given Documented by: Sodium Chloride (0.9% Saline Lock 10 Ml Syringe) 10 - 40 ml IV UD PRN PRN Reason: SALINE FLUSH Last Admin: 08/04/20 12:01 Dose: 40 ml Documented by: Tamsulosin HCl (Tamsulosin Hcl 0.4 Mg Capsule) 0.4 mg PO DAILY@1730 [facility] Last Admin: 08/04/20 17:02 Dose: 0.4 mg Documented by: Topiramate (Topiramate 25 Mg Tablet) 25 mg PO BID [facility] Last Admin: 08/04/20 21:41 Dose: 25 mg Documented by: Trazodone HCl (Trazodone 50 Mg Tablet) 150 mg PO QHS [facility] Last Admin: 08/04/20 23:14 Dose: 150 mg Documented by: STROKE Vital Signs/Narrative: Vital Signs Temp Pulse Resp BP Pulse Ox 08/05/20 07:00 57 L 20 H 101/55 L 94 08/05/20 06:00 61 17 98/52 L 95 08/05/20 05:00 80 17 117/69 98 08/05/20 04:00 98.4 F 59 L 26 H 116/60 95 08/05/20 03:39 59 L Medical Necessity - Tobacco Use Smoking Status: Former smoker Assessment/Plan All Active Problems (Last Reviewed 08/02/20 @ 21:[address] Catalino Greenwood MD) Debility (Acute) SVT (supraventricular tachycardia) (Acute) Scrotal pain (Acute) Right groin pain (Acute) Right hip joint effusion (Acute) Fever (Acute) Inflammatory arthritis (Acute) NSTEMI (non-ST elevated myocardial infarction) (Acute) Fever (Acute) Recurrent umbilical hernia (Resolved) Patient is a 79-year-old gentleman with history of rheumatoid arthritis who presented with fever and left wrist and right groin pain 1. Paroxysmal SVT -08/05/2020; patient was found to be relatively hypotensive the day prior with blood pressure of systolic in the 70s while on the regular floor. He later went into SVT he did receive adenosine 6 mg followed by 12 mg patient did not convert, subsequently transferred to the intensive care unit. Did receive Cardizem went back into sinus rhythm with improvement in his blood pressure but went back into SVT cardiology consulted patient started on amiodarone 2. Acute non-STEMI Patient was found to have elevated troponin consistent with acute non-STEMI. Patient was on Eliquis discontinued started on heparin with plans for patient to undergo left heart catheterization on 08/06/2020 3. Acute inflammatory polyarthritis ?Patient has had chronic right groin pain for which he underwent IR drainage during his last admission cultures came back negative. Presented this time with left wrist joint involvement. Admitted to regular nursing floor started on steroids. Blood cultures were obtained -08/05/2019; Patient seen still complains of significant left wrist pain as well as right groin pain. Was seen in consultation by Dr Benson's notes and recommendations reviewed Plan was for patient to have been transferred to a transitional care unit this a.m. however his blood pressure was found to be low with systolic in the 70s. Plans for discharge discontinued. Patient resuscitated with IV fluids. 08/06/2020; patient admitted to some improvement in the pain involving the right groin as well as the left wrist 4. Acute cystitis ?08/05/2020 patient also did complain of dysuria urinalysis obtained was consistent with acute cystitis subsequently started on Rocephin 5. Chronic A. fib ?Patient is on metoprolol as well as systemic anticoagulation with Eliquis continued -08/05/2020; Eliquis held patient started on heparin drip in anticipation of left heart catheterization 08/06/2020 6. Rheumatoid arthritis ?Patient is on hydroxychloroquine and methotrexate as well as Golimumab every 2 months. 7. BPH ?Patient is on Flomax and Proscar continue 8. DVT prophylaxis ?Patient on heparin drip Inpatient E&M: [id number] [facility] Hosp L3
[2020-08-05] MEDS: Aspirin 81 MG TAB.CHEW PO (07:50)
[2020-08-05] MEDS: Potassium Chloride Oral Tablet 10 MEQ PO (07:50)
[2020-08-05] MEDS: Folic Acid 1 MG Tablet 1.5 MG PO (07:50)
[2020-08-05] MEDS: Multivitamins,Ther W-Minerals Tablet 1 TABLET PO (07:50)
[2020-08-05] MEDS: Finasteride 5 MG Tablet PO (09:23)
[2020-08-05] MEDS: Ceftriaxone 1 GM/50 ML BAG IV (09:23)
[2020-08-05] MEDS: Topiramate 25 MG Tablet PO ×2 (09:24→22:19)
[2020-08-05] MEDS: Senna/Docusate Sodium 1 Tablet 2 TABLET PO ×2 (09:24→22:19)
[2020-08-05] MEDS: Cyanocobalamin 500 MCG Tablet PO (09:25)
[2020-08-05] MEDS: Ascorbic Acid 500 MG Tablet PO (09:25)
--- NOTE | 2020-08-05 09:52 | CASEMGMT ---
ELROY COLLAZO NOTE: Insurance review for hospitals In-network with MMO [employer] HMO Insurance if transfer is recommended is as follows: [facility], [place], [facility], [facility], [facility], [facility], [facility], and . Cheri SPRINGER RN CM
[2020-08-05] MEDS: Clopidogrel Bisulfate 75 MG Tablet PO (10:01)
[2020-08-05] MEDS: Nystatin Powder 15gm Bottle 1 APPLIC TOPICAL ×2 (10:01→22:17)
[2020-08-05] MEDS: Menthol/Lanolin/Calamine/Znox 113 GM Tube 1 APPLIC TOPICAL ×2 (10:01→22:16)
--- NOTE | 2020-08-05 10:05 | PCM.NTREPORT ---
Nutrition Therapy Report - History Current diet / nutrition support order:: regular diet - Anthropometric Measurements Height:: 5 ft 3 in Weight:: 58.5 kg - 2. Body Mass Index (BMI):: 22.8 - Relevant Labs Relevant Labs:: WBC 14.0 K/mm3 (4.4-11.0) H 08/04/20 09:20 RBC 3.49 M/mm3 (4.6-6.2) L 08/05/20 05:15 Hgb 10.6 g/dL (13.0-16.5) L 08/05/20 05:15 Hct 32.5 % (40-54) L 08/05/20 05:15 MCHC 31.2 g/dL (32-36) L 08/04/20 09:20 RDW Std Deviation 52.5 fl (35.1-43.9) H 08/05/20 05:15 RDW Coeff of Jaciel 15.6 % (11.6-14.6) H 08/05/20 05:15 Neut % (Auto) 86.0 % (47-70) H 08/03/20 05:52 Lymph % (Auto) 10.9 % (19-41) L 08/03/20 05:52 Absolute Neuts (auto) 8.7 X10^3/uL (2.0-7.7) H 08/03/20 05:52 ESR 78 mm/hr (0-20) H 08/02/20 18:44 APTT 40.7 Seconds (24.1-36.2) H 08/05/20 05:15 Potassium 3.3 mmol/L (3.5-5.1) L 08/04/20 09:20 Chloride 113 mmol/L (98-107) H 08/05/20 05:15 BUN 20 mg/dL (7-18) H 08/04/20 09:20 Creatinine 0.65 mg/dL (0.70-1.30) L 08/05/20 05:15 BUN/Creatinine Ratio 26.2 RATIO (10-20) H 08/05/20 05:15 Glucose 151 mg/dL (74-106) H 08/04/20 09:20 Uric Acid 3.4 mg/dL (3.5-7.2) L 08/02/20 18:44 AST 71 U/L (15-37) H 08/05/20 05:15 ALT 109 U/L (16-61) H 08/05/20 05:15 Alkaline Phosphatase 229 U/L (45-117) H 08/05/20 05:15 Troponin I 1.940 ng/mL (<0.045) H* 08/05/20 05:15 C-React Prot Ext Range 249.00 mg/L (0.0-3.0) H 08/02/20 18:44 Total Protein 6.1 g/dL (6.4-8.2) L 08/05/20 05:15 Albumin 2.3 g/dL (3.2-5.0) L 08/05/20 05:15 - Assessment Food / Nutrition-Related History:: S/p laminectomy April 2020- has been in/out of [facility] and [facility] since. Fair PO intake observed at breakfast this AM. Reports poor intake over past several weeks d/t acute hospital admission and [facility] T[facility] admission. States he has no tastes for anything. UBW prior to surgery, 140# and CBW 129#- 11#/8% wt loss x 3 months, significant for malnutrition. - Nutrition Diagnosis Problem / Etiology / Signs & Symptoms (PES):: acute, severe malnutrition r/t inadequate oral intake s/p laminectomy as evidenced by estimated PO intake meeting less than 75% of estimated nutritional needs >3 months, wt loss of 11#/8% x 3 months Evidence of Malnutrition Exists:: Yes Severe PCM:: Acute Illness - Nutrition Intervention Nutrition Prescription:: [id number] calories/day (25-30 calories/kg). 50-60 g protein/day (1g/kg). 1755mL fluid/day (30mL/kg) - Food / Nutrient Delivery Interventions Summary of nutrition intervention:: Discussed wt loss, inadequate oral intake w/ pt. Pt is fatigued w/ menu choices. Discussed daily specials. Discussed other food items kitchen can prepare for pt. Pt verbalized understanding. States he does not want to bother kitchen staff. Encouraged pt to verbalize foods desired so PO intake can improve at meals. Pt is agreeable to adding Ensure Enlive- does not like chocolate flavor. Nutrition support ordered as / adjusted to:: continue regular diet d/t acute malnutrition; will add 120mL ensure enlive 4x/day (no chocolate) Nutrition education provided?: Yes - MNT Monitoring Further MNT monitoring and evaluation required?: Yes MNT Follow-up in:: 3-5 days
[2020-08-05] MEDS: Metoprolol Tartrate 25 MG Tablet 12.5 MG PO ×2 (10:45→22:19)
[2020-08-05] MEDS: 0.9% Saline Lock 10 ML Syringe IV (10:46)
[2020-08-05 12:16] LABS: Partial Thromboplast Time 74.5 Seconds (24.1-36.2)
--- NOTE | 2020-08-05 12:55 | PN.CARD_ITS ---
Subjectve: Patient denies any significant cardiac complaints overnight. Telemetry monitoring reveals sinus rhythm with short runs of nonsustained V. tach. Trop onin peaked at around 3.8 and is trending down. Objective: Vital Signs Temp Pulse Resp BP Pulse Ox 97.8 F 72 12 109/70 95 08/05/20 12:00 08/05/20 12:00 08/05/20 12:00 08/05/20 12:00 08/05/20 12:00 Oxygen Delivery Method Room Air Weight: 128 lb 15.527 oz Body Mass Index (BMI) 22.8 Intake and Output for Last 24 Hours 08/03/20 08/04/20 08/05/20 23:59 23:59 23:59 Intake Total 240 / 240 1674.50 / 1790.97 602.57 / 602.57 Output Total 1920 / 1920 2145 / 2145 2074 / 2074 Balance -1680 / -1680 -470.50 / -354.03 -1472.43 / -1472.43 General: Awake, Alert, Oriented x 3 HEENT: Atraumatic Oral: Moist Mucosa Cardiovascular: Regular Rhythm 08/04/20 14:00: Troponin I 1.930 H* 08/04/20 15:00: Urine Color Yellow, Urine Clarity Sl. Cloudy, Urine pH 6.5, Ur Specific [place] 1.010, Urine Protein 15 H, Urine Glucose (UA) Normal, Urine Ketones Negative, Urine Occult Blood 150 H, Urine Nitrite Negative, Urine Bilirubin Negative, Urine Urobilinogen Normal, Ur Leukocyte Esterase 500 H, Urine RBC 10-25 SEEN, Urine WBC 25-50 SEEN 08/04/20 17:10: Troponin I 3.820 H* 08/04/20 18:15: PT 14.9, INR 1.2, APTT 35.4 08/04/20 23:20: APTT 183.3 H* 08/05/20 05:15: WBC 10.3, RBC 3.49 L, Hgb 10.6 L, Hct 32.5 L, MCV 93.1, MCH 30.4, MCHC 32.6, Plt Count 219, MPV 10.0 08/05/20 05:15: Sodium 145, Potassium 3.5, Chloride 113 H, Carbon Dioxide 25.0, Anion Gap 7, BUN 17, Creatinine 0.65 L, Est GFR (MDRD) Af Amer 153, Est GFR (MDRD) Non-Af 126, BUN/Creatinine Ratio 26.2 H, Glucose 105, Calcium 8.5, Magnesium 2.3, Total Bilirubin 0.30, Direct Bilirubin 0.12, Triglycerides 92, Cholesterol 117, LDL Cholesterol 56, VLDL Cholesterol 18, HDL Cholesterol 43 08/05/20 05:15: APTT 40.7 H 08/05/20 05:15: Troponin I 1.940 H* 08/05/20 11:50: APTT 74.5 H Rhythm: EKG: ECHO: Stress Test: Cardiac Cath: PCI: CT Surgery: Holter monitor: EPS: PPM: CXR: Chest CT Scan: Medical Necessity - Tobacco Use Smoking Status: Former smoker Assessment/Plan 1. Paroxysmal atrial fibrillation: Currently in sinus rhythm. Continue current medications. We are planning to proceed with coronary angiography tomorrow. If patient does not require PCI then we can start his Eliquis back. We may be able to start him back at 5 mg p.o. twice daily. 2. Non-STEMI: This could be a type II [place] secondary to hypotension and SVT. However overnight also patient had short runs of nonsustained V. tach. He does have apical hypokinesis on echo. I think it will be reasonable to proceed with coronary angiography. Risks and benefits explained to the patient. Patient is willing to proceed.
[2020-08-05] MEDS: Acetaminophen 500 MG Tablet 1000 MG PO ×2 (13:36→20:17)
[2020-08-05] MEDS: Tamsulosin HCl 0.4 MG Capsule PO (16:30)
[2020-08-05 17:55] LABS: Partial Thromboplast Time 106.5 Seconds (24.1-36.2)
[2020-08-05] MEDS: Mirtazapine 15 MG Tablet 7.5 MG PO (22:19)
[2020-08-05] MEDS: Amiodarone 200 MG Tablet PO (22:20)
[2020-08-05] MEDS: traZODone 50 MG Tablet 150 MG PO (23:34)
[2020-08-06] VITALS (30 sets, daily range): BP systolic 105–143; BP diastolic 57–84; PULSE 50–81; RESP 7–19; TEMP 36.6–36.8; O2SAT 91–987
[2020-08-06 02:28] LABS: Partial Thromboplast Time 32.5 Seconds (24.1-36.2)
[2020-08-06] MEDS: 0.9% Saline Lock 10 ML Syringe IV (02:50)
[2020-08-06] MEDS: Heparin Injection (Vial) 5,000 UNIT/ML VIAL IV (02:51)
[2020-08-06 04:43] LABS: Hematocrit 30.3 % (40-54); Hemoglobin 9.7 g/dL (13.0-16.5); Mean Corpuscular Volume 93.8 fL (80-94); Mean Platelet Vol. 10.2 fl (6.2-12.0); Platelet Count 215 K/mm3 (150-450); RBC Distribution Width CV 15.9 % (11.6-14.6); RBC Distribution Width SD 54.4 fl (35.1-43.9); Red Blood Count 3.23 M/mm3 (4.6-6.2); White Blood Count 7.8 K/mm3 (4.4-11.0)
[2020-08-06 04:58] LABS: Anion Gap 5 (5-15); BUN 19 mg/dL (7-18); BUN/Creat Ratio 30.6 RATIO (10-20); Calcium,Total 8.2 mg/dL (8.5-10.1); Chloride 111 mmol/L (98-107); Creatinine, Serum 0.62 mg/dL (0.70-1.30); EST Glomerular Filtration Rate 133 mL/min (>60); Est Glom Filt Rate - Afr Amer 161 mL/min (>60); Estimated Creatinine Clearance 49.79 ml/min; Glucose 106 mg/dL (74-106); Potassium 3.8 mmol/L (3.5-5.1); Sodium Level 142 mmol/L (136-145)
[2020-08-06] MEDS: Baclofen 10 MG Tablet PO ×3 (06:56→23:28)
--- NOTE | 2020-08-06 07:33 | PCM.PN.HOSP ---
Patient Problems: Active and Suspected Problems (Last Reviewed 08/02/20 @ 21:[address] Catalino Greenwood MD) SVT (supraventricular tachycardia) (Acute) Fever (Acute) Inflammatory arthritis (Acute) NSTEMI (non-ST elevated myocardial infarction) (Acute) Fever (Acute) Reason for Visit: Acute non-STEMI PSVT Acute cystitis Subjective: Patient is scheduled to undergo left heart catheterization. His urine cultures positive for Proteus mirabilis subsequently adjusted antibiotic therapy Objective: GENERAL: in some discomfort HEENT: Atraumatic; EYES; Anicteric, Normal Conjunctiva NECK; supple, normal thyroid, RESPIRATORY: Diminished to auscultation CARDIOVASCULAR: S1-S2 GI: soft, normoactive bowel sounds, : No Renal angle tenderness; EXTREMITIES: No edema, no clubbing, MUSCULOSKELETAL: Left right wrist swelling, movement restricted in right hip NEURO: Awake; no lateralizing signs. SKIN: No Rash PSYCH; Flat affect Vitals/I&O's: Vital Signs Temp Pulse Resp BP Pulse Ox 98.3 F 60 16 141/66 H 92 08/06/20 00:00 08/06/20 06:00 08/06/20 06:00 08/06/20 06:00 08/06/20 06:00 Oxygen Delivery Method Room Air Weight: 58.9 kg Body Mass Index (BMI) 22.8 Intake and Output for Last 24 Hours 08/04/20 08/05/20 08/06/20 23:59 23:59 23:59 Intake Total 1674.50 / 1790.97 1150.10 / 1158.10 527.17 / 527.17 Output Total 2145 / 2145 2675 / 2675 175 / 175 Balance -470.50 / -354.03 -1524.90 / -1516.90 352.17 / 352.17 Microbiology Past 72 Hours 08/04/20 15:00 Urine, Clean Catch Urine Culture - Preliminary Gram negative libby 08/04/20 14:00 Mucosa - Nasopharyngeal SARS-CoV-2 Antigen (Rapid) - Final Laboratory Results 08/05/20 05:15: Troponin I 1.940 H* 08/05/20 11:50: APTT 74.5 H 08/05/20 17:35: APTT 106.5 H* 08/06/20 02:05: APTT 32.5 08/06/20 04:30: WBC 7.8, RBC 3.23 L, Hgb 9.7 L, Hct 30.3 L, MCV 93.8, MCH 30.0, MCHC 32.0, RDW Std Deviation 54.4 H, RDW Coeff of Jaciel 15.9 H, Plt Count 215, MPV 10.2 08/06/20 04:30: Sodium 142, Potassium 3.8, Chloride 111 H, Carbon Dioxide 26.0, Anion Gap 5, BUN 19 H, Creatinine 0.62 L, Estim Creat Clear Calc 49.79, Est GFR (MDRD) Af Amer 161, Est GFR (MDRD) Non-Af 133, BUN/Creatinine Ratio 30.6 H, Glucose 106, Calcium 8.2 L Current Medications Acetaminophen (Acetaminophen 500 Mg Tablet) 1,000 mg PO Q6H PRN PRN PRN Reason: 1-10 pain/fever Last Admin: 08/05/20 20:17 Dose: 1,000 mg Documented by: Amiodarone HCl (Amiodarone 200 Mg Tablet) 200 mg PO BID [facility] Last Admin: 08/05/20 22:20 Dose: 200 mg Documented by: Ascorbic Acid (Ascorbic Acid 500 Mg Tablet) 500 mg PO DAILY [facility] Last Admin: 08/05/20 09:25 Dose: 500 mg Documented by: Aspirin (Aspirin 81 Mg Tab.Chew) 81 mg PO DAILY@0800 [facility] Last Admin: 08/05/20 07:50 Dose: 81 mg Documented by: Baclofen (Baclofen 10 Mg Tablet) 10 mg PO TID [facility] Last Admin: 08/06/20 06:56 Dose: 10 mg Documented by: Bisacodyl (Bisacodyl 5 Mg Tablet) 10 mg PO DAILY PRN PRN PRN Reason: Constipation Last Admin: 08/03/20 13:23 Dose: 10 mg Documented by: Calamine/Phenol (Menthol/Lanolin/Calamine/Znox 113 Gm Tube) 1 applic TOPICAL BID [facility]; Protocol Last Admin: 08/05/20 22:16 Dose: 1 applicatio Documented by: Clopidogrel Bisulfate (Clopidogrel Bisulfate 75 Mg Tablet) 75 mg PO DAILY [facility] Last Admin: 08/05/20 10:01 Dose: 75 mg Documented by: Cyanocobalamin (Cyanocobalamin 500 Mcg Tablet) 500 mcg PO DAILY [facility] Last Admin: 08/05/20 09:25 Dose: 500 mcg Documented by: Finasteride (Finasteride 5 Mg Tablet) 5 mg PO DAILY [facility] Last Admin: 08/05/20 09:23 Dose: 5 mg Documented by: Folic Acid (Folic Acid 1 Mg Tablet) 1.5 mg PO DAILYCM [facility] Last Admin: 08/05/20 07:50 Dose: 1.5 mg Documented by: Heparin Sodium (Porcine) (Heparin Injection (Vial) 5,000 Unit/Ml Vial) 0 unit IV UD PRN; Protocol PRN Reason: dose adjustment Last Admin: 08/06/20 02:51 Dose: 3,000 unit Documented by: Sodium Chloride () 250 mls @ 15 mls/hr IV .[id number] PRN PRN Reason: Saline Flush Diltiazem HCl 125 mg/ Dextrose 125 mls @ 5 mls/hr IV .Q25H [facility]; Protocol Last Titration: 08/06/20 06:00 Dose: 0 mg/hr, 0 mls/hr Documented by: Heparin Sodium/Dextrose () 25,000 units in 250 mls @ 8 mls/hr IV .[id number] [facility]; Protocol Last Titration: 08/06/20 05:00 Dose: 500 units/hr, 5 mls/hr Documented by: Ceftriaxone Sodium (Rocephin) 1 gm in 50 mls @ 100 mls/hr IV Q24 [facility] Last Infusion: 08/05/20 09:56 Dose: Infused Documented by: Sodium Chloride () 1,000 mls @ 0 mls/hr IV .Q0M [facility] Magnesium Hydroxide (Magnesium Hydroxide 30 Ml Udc) 30 ml PO DAILY PRN PRN PRN Reason: Constipation Melatonin (Melatonin 3 Mg Tablet) 3 mg PO QHS PRN PRN PRN Reason: INSOMNIA Last Admin: 08/02/20 23:37 Dose: 3 mg Documented by: Methotrexate (Methotrexate 2.5 Mg Tablet) 20 mg PO Bui [facility] Methylprednisolone (Methylprednisolone 40 Mg/Ml Vial) 40 mg IV DAILY [facility] Last Admin: 08/05/20 09:24 Dose: 40 mg Documented by: Metoprolol Tartrate (Metoprolol Tartrate 25 Mg Tablet) 12.5 mg PO BID [facility] Last Admin: 08/05/20 22:19 Dose: 12.5 mg Documented by: Mirtazapine (Mirtazapine 15 Mg Tablet) 7.5 mg PO QHS [facility] Last Admin: 08/05/20 22:19 Dose: 7.5 mg Documented by: Multivitamins/Minerals (Multivitamins,Ther W-Minerals Tablet) [facility] Last Admin: 08/05/20 07:50 Dose: 1 tablet Documented by: Nutritional Formula (Lactose Free) (Ensure Enlive 120 Ml Liquid) 120 ml PO 4X/DAY [facility] Last Admin: 08/05/20 22:27 Dose: 120 ml Documented by: Nystatin (Nystatin Powder 15gm Bottle) 1 applic TOPICAL BID [facility]; Protocol Last Admin: 08/05/20 22:17 Dose: 1 applicatio Documented by: Ondansetron HCl (Ondansetron 4 Mg/2 Ml Vial) 4 mg IV Q8H PRN PRN PRN Reason: NAUSEA/VOMITING Oxycodone HCl (Oxycodone 5 Mg Tablet) 15 mg PO Q4H PRN PRN PRN Reason: Pain 1-10 Last Admin: 08/05/20 22:17 Dose: 15 mg Documented by: Polyethylene Glycol (Polyethylene Glycol 3350 17 Gm Packet) 17 gm PO DAILY [facility] Last Admin: 08/05/20 09:24 Dose: Not Given Documented by: Potassium Chloride (Potassium Chloride Oral Tablet 10 Meq) [facility] Last Admin: 08/05/20 07:50 Dose: 10 meq Documented by: Senna/Docusate Sodium (Senna/Docusate Sodium 1 Tablet) 2 tablet PO BID [facility] Last Admin: 08/05/20 22:19 Dose: 2 tablet Documented by: Sodium Chloride (0.9% Saline Lock 10 Ml Syringe) 10 - 40 ml IV UD PRN PRN Reason: SALINE FLUSH Last Admin: 08/06/20 02:50 Dose: 20 ml Documented by: Tamsulosin HCl (Tamsulosin Hcl 0.4 Mg Capsule) 0.4 mg PO DAILY@1730 [facility] Last Admin: 08/05/20 16:30 Dose: 0.4 mg Documented by: Topiramate (Topiramate 25 Mg Tablet) 25 mg PO BID [facility] Last Admin: 08/05/20 22:19 Dose: 25 mg Documented by: Trazodone HCl (Trazodone 50 Mg Tablet) 150 mg PO QHS [facility] Last Admin: 08/05/20 23:34 Dose: 150 mg Documented by: STROKE Vital Signs/Narrative: Vital Signs Pulse Resp BP Pulse Ox 08/06/20 06:00 60 16 141/66 H 92 08/06/20 05:00 59 L 17 115/78 95 08/06/20 04:00 53 L 16 117/63 95 Medical Necessity - Tobacco Use Smoking Status: Former smoker Assessment/Plan All Active Problems (Last Reviewed 08/02/20 @ 21:[address] Catalino Greenwood MD) Debility (Acute) SVT (supraventricular tachycardia) (Acute) Scrotal pain (Acute) Right groin pain (Acute) Right hip joint effusion (Acute) Fever (Acute) Inflammatory arthritis (Acute) NSTEMI (non-ST elevated myocardial infarction) (Acute) Fever (Acute) Recurrent umbilical hernia (Resolved) Patient is a 79-year-old gentleman with history of rheumatoid arthritis who presented with fever and left wrist and right groin pain 1. Paroxysmal SVT -08/05/2020; patient was found to be relatively hypotensive the day prior with blood pressure of systolic in the 70s while on the regular floor. He later went into SVT he did receive adenosine 6 mg followed by 12 mg patient did not convert, subsequently transferred to the intensive care unit. Did receive Cardizem went back into sinus rhythm with improvement in his blood pressure but went back into SVT cardiology consulted patient started on amiodarone 2. Acute non-STEMI Patient was found to have elevated troponin consistent with acute non-STEMI. Patient was on Eliquis discontinued started on heparin with plans for patient to undergo left heart catheterization on 08/06/2020 3. Acute inflammatory polyarthritis ?Patient has had chronic right groin pain for which he underwent IR drainage during his last admission cultures came back negative. Presented this time with left wrist joint involvement. Admitted to regular nursing floor started on steroids. Blood cultures were obtained -08/05/2019; Patient seen still complains of significant left wrist pain as well as right groin pain. Was seen in consultation by Dr Benson's notes and recommendations reviewed Plan was for patient to have been transferred to a transitional care unit this a.m. however his blood pressure was found to be low with systolic in the 70s. Plans for discharge discontinued. Patient resuscitated with IV fluids. 08/06/2020; patient admitted to some improvement in the pain involving the right groin as well as the left wrist 4. Acute cystitis with Proteus mirabilis ?08/05/2020 patient also did complain of dysuria urinalysis obtained was consistent with acute cystitis subsequently started on Rocephin ?08/06/2020 cultures came back positive for Proteus mirabilis antibiotic therapy adjusted 5. Chronic A. fib ?Patient is on metoprolol as well as systemic anticoagulation with Eliquis continued -08/05/2020; Eliquis held patient started on heparin drip in anticipation of left heart catheterization 08/06/2020 6. Rheumatoid arthritis ?Patient is on hydroxychloroquine and methotrexate as well as Golimumab every 2 months. 7. BPH ?Patient is on Flomax and Proscar continue 8. DVT prophylaxis ?Patient on heparin drip 9. Severe malnutrition ?As evidenced by PO intake < 75% for > 3 months and weight loss of 8 % x 3 months. Patient was seen in consultation by dietitian withPlan for dietary supplements and follow up. Inpatient E&M: [id number] [facility] L3
[2020-08-06] MEDS: Folic Acid 1 MG Tablet 1.5 MG PO (08:39)
[2020-08-06] MEDS: Ceftriaxone 1 GM/50 ML BAG IV (08:39)
[2020-08-06] MEDS: oxyCODONE 5 MG Tablet 15 MG PO ×2 (08:40→20:04)
[2020-08-06] MEDS: Ascorbic Acid 500 MG Tablet PO (08:41)
[2020-08-06] MEDS: Aspirin 81 MG TAB.CHEW PO (08:41)
[2020-08-06] MEDS: Potassium Chloride Oral Tablet 10 MEQ PO (08:41)
[2020-08-06] MEDS: Multivitamins,Ther W-Minerals Tablet 1 TABLET PO (08:42)
[2020-08-06] MEDS: Amiodarone 200 MG Tablet PO ×2 (08:42→23:28)
[2020-08-06] MEDS: Metoprolol Tartrate 25 MG Tablet 12.5 MG PO ×2 (08:44→23:27)
[2020-08-06] MEDS: Finasteride 5 MG Tablet PO (08:45)
[2020-08-06] MEDS: Clopidogrel Bisulfate 75 MG Tablet PO (08:46)
[2020-08-06] MEDS: Menthol/Lanolin/Calamine/Znox 113 GM Tube 1 APPLIC TOPICAL ×2 (08:46→23:28)
[2020-08-06] MEDS: Nystatin Powder 15gm Bottle 1 APPLIC TOPICAL ×2 (08:46→23:29)
[2020-08-06 08:50] LABS: Partial Thromboplast Time 36.7 Seconds (24.1-36.2)
--- NOTE | 2020-08-06 10:13 | CASEMGMT ---
Social Work SW attended ICU rounds. Pt to have heart cath today. SW spoke with [facility] in TCU and confirmed that they are able to accept pt when medically ready. Pt will not need precert. SW attempted to inform pt however, pt out of the room for procedure. Plan: TCU, when medically ready. FARHAN Calix
--- NOTE | 2020-08-06 10:29 | NURSING ---
daughter Brisa informed patient went to [facility] for cardiac cath ahead of schedule voiced understanding will update after procedure completed
--- NOTE | 2020-08-06 13:00 | EKG12_ITS ---
Test Reason : AM EKG Blood Pressure : / mmHG Vent. Rate : 055 BPM Atrial Rate : 055 BPM P-R Int : 196 ms QRS Dur : 092 ms QT Int : 490 ms P-R-T Axes : 068 -20 045 degrees QTc Int : 468 ms Sinus bradycardia Low voltage QRS Borderline ECG When compared with ECG of 06-AUG-2020 12:48, MANUAL COMPARISON REQUIRED, DATA IS UNCONFIRMED Confirmed by FELIX PERALES, SREEKANTH ([id number]), commercial production editor DEMARCUS CAMARENA ([id number]) on 08/10/2020 11:42:32 A M Referred By: HOWARD Confirmed By:SHAQUILLE WASHINGTON MD
[2020-08-06] MEDS: Cyanocobalamin 500 MCG Tablet PO (13:08)
[2020-08-06] MEDS: Topiramate 25 MG Tablet PO ×2 (13:08→23:27)
[2020-08-06] MEDS: 0.9% Normal Saline 1,000 ML 100 ML IV (13:09)
--- NOTE | 2020-08-06 14:00 | NURSING ---
daughter updated on condition post-cath, voiced understanding
--- NOTE | 2020-08-06 14:32 | CRPHASE1_ITS ---
Patient Communication Former Patient:: Phase I PHII Cardiac Rehab Discussed with Patient:: Yes Guide to Cardiac Rehab Given to Patient:: Yes Cardiac Rehab Facility Choice List Given to Patient:: Yes Choice Program [facility] CR PHII:: Communication Given to CR Choice Program Other:: Communication Given to CR [employer] Security:: Laith Garcia Refer Phase II Cardiac Rehab:: Yes Sessions:: 36 sessions - 3 days/wk, 12 weeks Cardiac Rehabilitation Info Cardiac Rehabilitation Program Information: Cardiac Rehabilitation is important for patients like you who are recovering from a heart problem. Cardiac rehabilitation programs are recognized as integral to the continued care of the patient with coronary heart disease. The cardiac rehabilitation program is designed to optimize a patient's physical, psychological, and social functioning. Health respiratory care assistant work in cardiac rehabilitation programs and assist you with getting the treatments you need to get stronger and healthier - like exercise, healthy eating habits, and medications. Cardiac rehabilitation has been show to help people with heart problems live longer and have better life enjoyment than people who do not go to cardiac rehabilitation. Please contact the Cardiac Rehabilitation Program at [facility] at in two weeks if you have not heard from them.
--- NOTE | 2020-08-06 14:34 | CRPH1.INSTRU ---
General Education CAD and cardiac anatomy and function:: Patient communicates acknowledgment Explanation of diagnoses and procedures:: Patient communicates acknowledgment Sign/Symptoms of [place]:: Patient communicates acknowledgment Antiplatelet therapy: Patient communicates acknowledgment Smoking Patient Nicotine/Smoking Risk Factors Are:: Non-smoker Dyslipidemia Patient Dyslipidemia Risk Factors Are:: Total Cholesterol, Triglycerides, HDL, LDL Recommendations Include:: Lipid profile provided, Reviewed NCEP/ATP guidelines, Therapeutic Lifestyle Change dietary guidelines Dyslipidemia Response Code:: Patient communicates acknowledgment Overweight/Obesity Patient Overweight/Obesity Risk Factors Are:: BMI Normal [24-29 & > 65 years old] Hypertension Patient Hypertension Risk Factors Are:: No documented hx of HTN Diabetes Patient Diabetes Risk Factors Are:: No documented hx of diabetes Sedentary Patient Sedentary Risk Factors Are:: Lack of regular exercise Recommendations Include:: Aerobic exercise 5-7 times/week for 20-30 minutes continuously, Benefits of regular exercise, Monitored Outpatient Cardiac Rehab Sedentary Response Code:: Patient communicates acknowledgment Stress Patient Stress Risk Factors Are:: Patient denies stress as a risk factor
--- NOTE | 2020-08-06 15:11 | CL.I_ITS ---
Patient Name: BRYCE ANN Study Date: 08/06/2020 Performing: Josep Garcia MD Ht: 63 inches 160 cm : 1940 Wt: 130.2 lbs 59 kg Age: 79 Gender: male BSA: 1.61 PROCEDURE(S) PERFORMED [id number] W OR WO PTCA, SINGLE CORONARY ARTERY CLINICAL PROFILE AND CO-MORBIDITIES Indications: ACS > 24 hrs Heart Failure: None Stress/Imaging Stress/Image Study Performed: No CAD Presentations: Non-STEMI. Symptom onset Date/Time: Time Not Available CONCLUSIONS CAD as described. No significant . Successful PCI on OM2 with GAGE. Unsuccessful PCI of SAFETY CONSULTANT of LAD. RECOMMENDATIONS ASA Indefinitley Plavix for at least 12 months Follow up with Dr. Shields If patient has signs or symptoms of angina despite medical therapy, he may need re attempt at PCI of SAFETY CONSULTANT of LAD or referral for ARELLANO to LAD DESCRIPTION OF PROCEDURE The patient arrived to the procedure lab. The risks and benefits of the procedure as well as a full d escription of our services here and lack of surgical backup were fully explained to the patient and/o r their significant other prior to the catheterization. The Timeout was completed, verifying the caroline ect patient and procedure. The patient's procedural site was prepped and draped in the usual fashion. Local anesthetic was given subcutaneously to right radial region with Lidocaine 2%. Using a modified Seldinger technique, arterial access was obtained via the right radial artery, a 6Fr sheath was inse rted.. Left Coronary Artery selective angiography was performed in multiple views using a 5 Fr. JL3. 5 catheter. Right Coronary Artery selective angiography was then performed in multiple views using a 5 Fr. JR 4 catheter. LV to AO pullback pressures were then recordedThe images were reviewed and optio ns discussed. A decision was then made to proceed with an Intervention, IVUS or other adjunct procedure. xb 3 Guide catheter was inserted and engaged into the LCA. bmw Guide wire was advanced to the LAD . guideliner Guide catheter was inserted and engaged into the LCA. emerge otw 1.5 x 15 Balloon cathet er was advanced across lesion in the LAD, proximal. whisper Guide wire was advanced to the LAD. bmw G uide wire was advanced to the LAD. whisper Guide wire was exchanged for a bmw and sent down the om2 e merege 2.00 x12 Balloon catheter was advanced across lesion in the second obtuse marginal, mid PTCA balloon inflated at 8 atms for 14 secs. Angiogram performed post balloon dilatation. synergy 2.25 x 1 2 Drug Eluting stent was advanced across the lesion in the second obtuse marginal, mid Angiogram perf ormed post stent deployment. synergy 2.25 x 8 Drug Eluting stent was advanced across the lesion in th e second obtuse marginal, mid Angiogram performed post stent deployment. The arterial sheath was pu lled and a TR Band was applied for hemostasis CORONARY ANGIOGRAPHY DOMINANCE: Right Dominant LEFT HEART ASSESSMENT Left Ventricular Ejection Fraction: Not assessed LEFT MAIN: Mild luminal irregularities LEFT ANTERIOR DESCENDING ARTERY: MID LAD: 100 % Stenosis CIRCUMFLEX ARTERY: Mild luminal irregularities OM 2: Mid - 90 % Stenosis RIGHT CORONARY ARTERY: Mild luminal irregularities RT PDA: Proximal - 30-40 % Stenosis VALVE FINDINGS: No Aortic Valve Stenosis INTERVENTION INFORMATION LESION SITE: 2nd OM (Mid) Lesion Complexity: High/C, chronic total occlusion: Yes, lesion at bifurcation: No, thrombus present: No, lesion length: 18 mm, culprit lesion: Yes, Previously treated lesion: No Pre Stenosis: 100 % Pre intervention YAQUELIN flow: 1 PROCEDURE: unsuccessful PTCA. (Unable to cross SAFETY CONSULTANT) Post Stenosis: 100 % Post intervention YAQUELIN flow: 1 Lesion Devices: Jose Raul Sci EMERGE MR 2.00x12 BALLOON Jose Raul Sci EMERGE OTW 1.50x15 BALLOON Jose Raul Sci Synergy MR GAGE 2.25x12 Jose Raul Sci Synergy MR GAGE 2.25x08 LESION SITE: 2nd OM (Mid) Lesion Complexity: High/C, chronic total occlusion: No, lesion at bifurcation: No, thrombus present: No, lesion length: 12 mm, culprit lesion: Yes, Previously treated lesion: No, In-stent restenosis: No Pre Stenosis: 90 % Pre intervention YAQUELIN flow: 3 PROCEDURE: Drug Eluting Stent with pre dilatation. Post Stenosis: 0 % Post intervention YAQUELIN flow: 3 COMPLICATIONS No Complications PROCEDURE MEDICATIONS Versed 1 mg IV Oxygen: 2 L/min via nasal cannula Heparin given IA 08/06/2020 10:54:57 Heparin 2000 unit(s) IV 08/06/2020 11:03:21 Heparin 2000 unit(s) IV 08/06/2020 12:05:18 Nitro 200 mcg IC 08/06/2020 12:11:19 Verapamil 2.5mg, Ntg 100mcgs, 3000 units of Heparin given IA 08/06/2020 10:54:57 SUMMARY OF HEMODYNAMIC DATA Time AIR REST ECG 10:19:10 AO 80/48 (63) SA 10:51:09 LV 128/2, 20 11:04:32 LV 126/2, 23 11:04:38 LVp 129/-3, 15 11:04:51 AOp 122/56 (84) 11:04:56 AO 113/53 (79) 11:10:42 Signed By Josep Garcia MD On 08/06/2020 15:10:37 Josep Garcia MD
[2020-08-06] MEDS: Cephalexin 500 MG Capsule PO ×2 (16:00→23:28)
[2020-08-06] MEDS: Tamsulosin HCl 0.4 MG Capsule PO (16:03)
[2020-08-06] MEDS: Mirtazapine 15 MG Tablet 7.5 MG PO (23:27)
[2020-08-06] MEDS: Senna/Docusate Sodium 1 Tablet 2 TABLET PO (23:27)
[2020-08-06] MEDS: traZODone 50 MG Tablet 150 MG PO (23:28)
[2020-08-06] MEDS: Atorvastatin Calcium 40 MG Tablet PO (23:28)
[2020-08-07] VITALS (24 sets, daily range): BP systolic 100–156; BP diastolic 53–97; PULSE 45–75; RESP 12–20; TEMP 36.3–36.7; O2SAT 95–989
[2020-08-07 03:54] LABS: Hematocrit 32.5 % (40-54); Hemoglobin 10.3 g/dL (13.0-16.5); Mean Corp Hgb Conc 31.7 g/dL (32-36); Mean Corpuscular Hgb 29.9 pg (27.0-32.0); Mean Corpuscular Volume 94.2 fL (80-94); Mean Platelet Vol. 9.9 fl (6.2-12.0); Platelet Count 239 K/mm3 (150-450); RBC Distribution Width CV 15.9 % (11.6-14.6); RBC Distribution Width SD 54.8 fl (35.1-43.9); Red Blood Count 3.45 M/mm3 (4.6-6.2); White Blood Count 6.6 K/mm3 (4.4-11.0)
[2020-08-07 04:09] LABS: ALB/GLOB Ratio 0.6 RATIO (0.9-2.4); AST(SGOT) 17 U/L (15-37); Alanine Aminotransfer ALT/SGPT 64 U/L (16-61); Albumin, Serum 2.2 g/dL (3.2-5.0); Alkaline Phosphatase 154 U/L (45-117); Anion Gap 4 (5-15); BUN 17 mg/dL (7-18); BUN/Creat Ratio 24.2 RATIO (10-20); Calcium,Total 8.4 mg/dL (8.5-10.1); Chloride 110 mmol/L (98-107); EST Glomerular Filtration Rate 116 mL/min (>60); Est Glom Filt Rate - Afr Amer 140 mL/min (>60); Estimated Creatinine Clearance 49.79 ml/min; Globulin 3.4 g/dL (2.2-4.2); Glucose 93 mg/dL (74-106); Potassium 4.1 mmol/L (3.5-5.1); Protein, Total 5.6 g/dL (6.4-8.2); Sodium Level 141 mmol/L (136-145)
[2020-08-07] MEDS: Cephalexin 500 MG Capsule PO ×3 (05:22→21:24)
[2020-08-07] MEDS: Baclofen 10 MG Tablet PO ×3 (05:22→21:25)
--- NOTE | 2020-08-07 07:43 | PCM.PN.HOSP ---
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 SKIN: No Rash PSYCH; Flat affect Vitals/I&O's: Vital Signs Temp Pulse Resp BP Pulse Ox 97.9 F 48 L 18 131/65 H 97 08/07/20 00:00 08/07/20 07:26 08/07/20 06:00 08/07/20 06:00 08/07/20 06:00 Oxygen Delivery Method Room Air Weight: 60.4 kg Body Mass Index (BMI) 22.8 Intake and Output for Last 24 Hours 08/05/20 08/06/20 08/07/20 23:59 23:59 23:59 Intake Total 1150.10 / 1158.10 1195.59 / 1395.59 200 / 200 Output Total 2675 / 2675 1325 / 1800 975 / 975 Balance -1524.90 / -1516.90 -129.41 / -404.41 -775 / -775 Microbiology Past 72 Hours 08/04/20 15:00 Urine, Clean Catch Urine Culture - Final Proteus mirabilis 08/04/20 14:00 Mucosa - Nasopharyngeal SARS-CoV-2 Antigen (Rapid) - Final Laboratory Results 08/06/20 08:35: APTT 36.7 H 08/07/20 03:45: WBC 6.6, RBC 3.45 L, Hgb 10.3 L, Hct 32.5 L, MCV 94.2 H, MCH 29.9, MCHC 31.7 L, RDW Std Deviation 54.8 H, RDW Coeff of Jaciel 15.9 H, Plt Count 239, MPV 9.9 08/07/20 03:45: Sodium 141, Potassium 4.1, Chloride 110 H, Carbon Dioxide 27.0, Anion Gap 4 L, BUN 17, Creatinine 0.70, Estim Creat Clear Calc 49.79, Est GFR (MDRD) Af Amer 140, Est GFR (MDRD) Non-Af 116, BUN/Creatinine Ratio 24.2 H, Glucose 93, Calcium 8.4 L, Total Bilirubin 0.20, AST 17, ALT 64 H, Alkaline Phosphatase 154 H, Total Protein 5.6 L, Albumin 2.2 L, Globulin 3.4, Albumin/Globulin Ratio 0.6 L Current Medications Acetaminophen (Acetaminophen 500 Mg Tablet) 1,000 mg PO Q6H PRN PRN PRN Reason: 1-10 pain/fever Last Admin: 08/05/20 20:17 Dose: 1,000 mg Documented by: Amiodarone HCl (Amiodarone 200 Mg Tablet) 200 mg PO BID [facility] Last Admin: 08/06/20 23:28 Dose: 200 mg Documented by: Ascorbic Acid (Ascorbic Acid 500 Mg Tablet) 500 mg PO DAILY [facility] Last Admin: 08/06/20 08:41 Dose: 500 mg Documented by: Aspirin (Aspirin 81 Mg Tab.Chew) 81 mg PO DAILY@0800 [facility] Last Admin: 08/06/20 08:41 Dose: 81 mg Documented by: Atorvastatin Calcium (Atorvastatin Calcium 40 Mg Tablet) 40 mg PO QHS [facility] Last Admin: 08/06/20 23:28 Dose: 40 mg Documented by: Atropine Sulfate (Atropine Sulfate 1 Mg/10 Ml Syringe) 0.5 mg IV UD PRN PRN Reason: HR <50 bpm Baclofen (Baclofen 10 Mg Tablet) 10 mg PO TID [facility] Last Admin: 08/07/20 05:22 Dose: 10 mg Documented by: Bisacodyl (Bisacodyl 5 Mg Tablet) 10 mg PO DAILY PRN PRN PRN Reason: Constipation Last Admin: 08/03/20 13:23 Dose: 10 mg Documented by: Calamine/Phenol (Menthol/Lanolin/Calamine/Znox 113 Gm Tube) 1 applic TOPICAL BID [facility]; Protocol Last Admin: 08/06/20 23:28 Dose: 1 applicatio Documented by: Cephalexin (Cephalexin 500 Mg Capsule) 500 mg PO Q8 [facility] Last Admin: 08/07/20 05:22 Dose: 500 mg Documented by: Clopidogrel Bisulfate (Clopidogrel Bisulfate 75 Mg Tablet) 75 mg PO DAILY [facility] Last Admin: 08/06/20 08:46 Dose: 75 mg Documented by: Cyanocobalamin (Cyanocobalamin 500 Mcg Tablet) 500 mcg PO DAILY [facility] Last Admin: 08/06/20 13:08 Dose: 500 mcg Documented by: Finasteride (Finasteride 5 Mg Tablet) 5 mg PO DAILY [facility] Last Admin: 08/06/20 08:45 Dose: 5 mg Documented by: Folic Acid (Folic Acid 1 Mg Tablet) 1.5 mg PO DAILYCM [facility] Last Admin: 08/06/20 08:39 Dose: 1.5 mg Documented by: Heparin Sodium (Beef Lung) (Heparin Lock 500 Unit/5 Ml In 10 Ml Syringe) 500 unit IV UD PRN PRN Reason: HEPARIN FLUSH Heparin Sodium (Porcine) (Heparin Injection (Vial) 5,000 Unit/Ml Vial) 0 unit IV UD PRN; Protocol PRN Reason: dose adjustment Last Admin: 08/06/20 02:51 Dose: 3,000 unit Documented by: Sodium Chloride () 250 mls @ 15 mls/hr IV .[id number] PRN PRN Reason: Saline Flush Diltiazem HCl 125 mg/ Dextrose 125 mls @ 5 mls/hr IV .Q25H [facility]; Protocol Last Titration: 08/06/20 19:36 Dose: Infused Documented by: Sodium Chloride () 1,000 mls @ 0 mls/hr IV .Q0M [facility] Sodium Chloride () 1,000 mls @ 100 mls/hr IV .Q10H [facility] Last Admin: 08/06/20 23:57 Dose: Not Given Documented by: Labetalol HCl (Labetalol (Prefilled) 20 Mg/4 Ml) 5 mg IV X1 PRN PRN Reason: SBP >160 when pulling sheath Stop: 08/08/20 12:46 Magnesium Hydroxide (Magnesium Hydroxide 30 Ml Udc) 30 ml PO DAILY PRN PRN PRN Reason: Constipation Melatonin (Melatonin 3 Mg Tablet) 3 mg PO QHS PRN PRN PRN Reason: INSOMNIA Last Admin: 08/02/20 23:37 Dose: 3 mg Documented by: Methotrexate (Methotrexate 2.5 Mg Tablet) 20 mg PO [facility] Methylprednisolone (Methylprednisolone 40 Mg/Ml Vial) 40 mg IV DAILY [facility] Last Admin: 08/06/20 13:06 Dose: 40 mg Documented by: Metoprolol Tartrate (Metoprolol Tartrate 25 Mg Tablet) 12.5 mg PO BID [facility] Last Admin: 08/06/20 23:27 Dose: 12.5 mg Documented by: Mirtazapine (Mirtazapine 15 Mg Tablet) 7.5 mg PO QHS [facility] Last Admin: 08/06/20 23:27 Dose: 7.5 mg Documented by: Multivitamins/Minerals (Multivitamins,Ther W-Minerals Tablet) [facility] Last Admin: 08/06/20 08:42 Dose: 1 tablet Documented by: Nutritional Formula (Lactose Free) (Ensure Enlive 120 Ml Liquid) 120 ml PO 4X/DAY [facility] Last Admin: 08/06/20 23:56 Dose: Not Given Documented by: Nystatin (Nystatin Powder 15gm Bottle) 1 applic TOPICAL BID [facility]; Protocol Last Admin: 08/06/20 23:29 Dose: 1 applicatio Documented by: Ondansetron HCl (Ondansetron 4 Mg/2 Ml Vial) 4 mg IV Q8H PRN PRN PRN Reason: NAUSEA/VOMITING Oxycodone HCl (Oxycodone 5 Mg Tablet) 15 mg PO Q4H PRN PRN PRN Reason: Pain 1-10 Last Admin: 08/06/20 20:04 Dose: 15 mg Documented by: Polyethylene Glycol (Polyethylene Glycol 3350 17 Gm Packet) 17 gm PO DAILY [facility] Last Admin: 08/06/20 08:45 Dose: Not Given Documented by: Potassium Chloride (Potassium Chloride Oral Tablet 10 Meq) [facility] Last Admin: 08/06/20 08:41 Dose: 10 meq Documented by: Senna/Docusate Sodium (Senna/Docusate Sodium 1 Tablet) 2 tablet PO BID [facility] Last Admin: 08/06/20 23:27 Dose: 2 tablet Documented by: Sodium Chloride (0.9% Saline Lock 10 Ml Syringe) 10 - 40 ml IV UD PRN PRN Reason: SALINE FLUSH Last Admin: 08/06/20 02:50 Dose: 20 ml Documented by: Sodium Chloride (0.9% Normal Saline 500 Ml Iv.Soln.) 500 ml IV BOLUS PRN PRN Reason: VASO-VAGAL PROTOCOL Tamsulosin HCl (Tamsulosin Hcl 0.4 Mg Capsule) 0.4 mg PO DAILY@1730 [facility] Last Admin: 08/06/20 16:03 Dose: 0.4 mg Documented by: Topiramate (Topiramate 25 Mg Tablet) 25 mg PO BID [facility] Last Admin: 08/06/20 23:27 Dose: 25 mg Documented by: Trazodone HCl (Trazodone 50 Mg Tablet) 150 mg PO QHS [facility] Last Admin: 08/06/20 23:28 Dose: 150 mg Documented by: STROKE Vital Signs/Narrative: Vital Signs Pulse Resp BP Pulse Ox 08/07/20 07:26 48 L 08/07/20 06:00 75 18 131/65 H 97 08/07/20 05:00 45 L 17 126/61 H 96 08/07/20 04:00 61 18 147/71 H 98 Medical Necessity - Tobacco Use Smoking Status: Former smoker Assessment/Plan All Active Problems (Last Updated 08/06/20 @ 15:34 by Kim Kraus) Debility (Acute) SVT (supraventricular tachycardia) (Acute) Scrotal pain (Acute) Right groin pain (Acute) Right hip joint effusion (Acute) Fever (Acute) Inflammatory arthritis (Acute) NSTEMI (non-ST elevated myocardial infarction) (Acute) Fever (Acute) Recurrent umbilical hernia (Resolved) Patient is a 79-year-old gentleman with history of rheumatoid arthritis who presented with fever and left wrist and right groin pain 1. Paroxysmal SVT -08/05/2020; patient was found to be relatively hypotensive the day prior with blood pressure of systolic in the 70s while on the regular floor. He later went into SVT he did receive adenosine 6 mg followed by 12 mg patient did not convert, subsequently transferred to the intensive care unit. Did receive Cardizem went back into sinus rhythm with improvement in his blood pressure but went back into SVT cardiology consulted patient started on amiodarone -08/07/2020 remains on amiodarone 200 mg p.o. twice daily 2. Acute non-STEMI Patient was found to have elevated troponin consistent with acute non-STEMI. Patient was on Eliquis discontinued started on heparin with plans for patient to undergo left heart catheterization on 08/06/2020 -08/07/2020 patient underwent left heart catheterization on 08/06/2020 with successful PCI of OM 2 with GAGE, unsuccessful PCI ARTICULATION OFFICER of the LAD 3. Acute inflammatory polyarthritis ?Patient has had chronic right groin pain for which he underwent IR drainage during his last admission cultures came back negative. Presented this time with left wrist joint involvement. Admitted to regular nursing floor started on steroids. Blood cultures were obtained -08/05/2019; Patient seen still complains of significant left wrist pain as well as right groin pain. Was seen in consultation by Dr Benson's notes and recommendations reviewed Plan was for patient to have been transferred to a transitional care unit this a.m. however his blood pressure was found to be low with systolic in the 70s. Plans for discharge discontinued. Patient resuscitated with IV fluids. -08/06/2020; patient admitted to some improvement in the pain involving the right groin as well as the left wrist 4. Acute cystitis with Proteus mirabilis ?08/05/2020 patient also did complain of dysuria urinalysis obtained was consistent with acute cystitis subsequently started on Rocephin ?08/06/2020 cultures came back positive for Proteus mirabilis antibiotic therapy adjusted 5. Chronic A. fib ?Patient is on metoprolol as well as systemic anticoagulation with Eliquis continued -08/05/2020; Eliquis held patient started on heparin drip in anticipation of left heart catheterization 08/06/2020 6. Rheumatoid arthritis ?Patient is on hydroxychloroquine and methotrexate as well as Golimumab every 2 months. 7. BPH ?Patient is on Flomax and Proscar continue 8. DVT prophylaxis ?Patient on heparin drip 9. Severe malnutrition ?As evidenced by PO intake < 75% for > 3 months and weight loss of 8 % x 3 months. Patient was seen in consultation by dietitian withPlan for dietary supplements and follow up. 10. Physical deconditioning - Requested for PT OT eval and social work msw to assist with discharge planning (plan is for patient to be transferred back to the TCU when medically stable) Inpatient E&M: [id number] [facility] L3
[2020-08-07] MEDS: Multivitamins,Ther W-Minerals Tablet 1 TABLET PO (08:46)
[2020-08-07] MEDS: Menthol/Lanolin/Calamine/Znox 113 GM Tube 1 APPLIC TOPICAL ×2 (08:47→21:23)
[2020-08-07] MEDS: Amiodarone 200 MG Tablet PO ×2 (08:47→21:24)
[2020-08-07] MEDS: Folic Acid 1 MG Tablet 1.5 MG PO (08:47)
[2020-08-07] MEDS: Potassium Chloride Oral Tablet 10 MEQ PO (08:48)
[2020-08-07] MEDS: Aspirin 81 MG TAB.CHEW PO (08:48)
[2020-08-07] MEDS: Cyanocobalamin 500 MCG Tablet PO (08:49)
[2020-08-07] MEDS: Finasteride 5 MG Tablet PO (08:49)
[2020-08-07] MEDS: Senna/Docusate Sodium 1 Tablet 2 TABLET PO ×2 (08:49→21:25)
[2020-08-07] MEDS: Clopidogrel Bisulfate 75 MG Tablet PO (08:50)
[2020-08-07] MEDS: Nystatin Powder 15gm Bottle 1 APPLIC TOPICAL ×2 (08:50→21:23)
[2020-08-07] MEDS: 0.9% Saline Lock 10 ML Syringe IV (08:52)
[2020-08-07] MEDS: Metoprolol Tartrate 25 MG Tablet 12.5 MG PO ×2 (08:55→21:25)
[2020-08-07] MEDS: Topiramate 25 MG Tablet PO ×2 (09:17→21:24)
[2020-08-07] MEDS: Polyethylene Glycol 3350 17 GM PACKET PO (09:17)
--- NOTE | 2020-08-07 10:00 | EKG12_ITS ---
Test Reason : POST STENT Blood Pressure : / mmHG Vent. Rate : 054 BPM Atrial Rate : 054 BPM P-R Int : 222 ms QRS Dur : 090 ms QT Int : 466 ms P-R-T Axes : 053 -25 052 degrees QTc Int : 441 ms Sinus bradycardia with 1st degree A-V block with occasional Premature ventricular complexes Low voltage QRS Borderline ECG When compared with ECG of 05-AUG-2020 04:29, Premature ventricular complexes are now Present AK interval has increased QRS axis Shifted left Confirmed by FELIX PERALES, SREEKANTH ([id number]), writer editor DEMARCUS CAMARENA ([id number]) on 08/10/2020 11:48:58 A M Referred By: JENNY WASHINGTON Confirmed By:SHAQUILLE WASHINGTON MD
[2020-08-07] MEDS: oxyCODONE 5 MG Tablet 15 MG PO ×2 (11:42→16:36)
--- NOTE | 2020-08-07 12:28 | PCM.CONS.P ---
Problem List (1) Appetite loss Status: Chronic (2) Left groin pain Status: Acute (3) Muscle spasm Status: Chronic (4) Rheumatoid arthritis Status: Chronic (5) Debility Status: Acute (6) History of coronary artery stent placement Status: Chronic Comment: Successful PCI on OM2 with GAGE. 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 Garcia on 08/06/2020 (7) Atherosclerotic heart disease of [place] coronary artery without angina pectoris Status: Chronic (8) Atrial fibrillation Status: Chronic Qualifiers: Atrial fibrillation type: paroxysmal Qualified Code(s): I48.0 - Paroxysmal atrial fibrillation (9) Lumbar spinal stenosis Status: Chronic (10) Atrial fibrillation with rapid ventricular response Status: Chronic (11) GERD (gastroesophageal reflux disease) Status: Chronic (12) SVT (supraventricular tachycardia) Status: Acute (13) Insomnia Status: Chronic (14) BPH (benign prostatic hyperplasia) Status: Chronic (15) Right hip joint effusion Status: Acute (16) Inflammatory arthritis Status: Acute (17) NSTEMI (non-ST elevated myocardial infarction) Status: Acute (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 Gloria Hazel MD - History of Present Illness The patient is a 79 year old M with past medical history as below, presented to the ED 08/06/2020 from TCU with complaints of fever, chills, and severe pain and swelling of the left wrist. Also complained of right hip pain and left knee swelling. Recently hospitalized for drainage of right hip joint effusion and had an appointment to get his left knee drained as well. Patient seen today for palliative care consult related to his weakness and debility, as well as chronic pain. He was admitted to the hospital for acute inflammatory arthritis, possible gout, and fever/leukocytosis. He is on hydroxychloroquine and methotrexate, as well as golimumab every 2 months for his rheumatoid arthritis. Ortho was consulted. Hospital stay was complicated by acute onset hypotension 08/05/2019. He was given IV fluid resuscitation. He ended up going into SVT superimposed on paroxysmal A. fib, as well as non-STEMI. He was treated with adenosine but PSVT refractory. Placed on IV diltiazem, which was again refractory. Added amiodarone and patient underwent cardiac catheterization, which required PCI, however the 100% occluded lesion to the LAD was not able to be intervened with stenting and will be medically treated. He also was treated for UTI growing Proteus mirabilis. He has had significant weight loss months, dietitian was following him for severe malnutrition. Mr. Rodriguez has a brace on the left wrist, pain has been consistent. States he tore a tendon. However, he states he is uncomfortable sitting, laying, and standing. He has been battling inflammatory process with his rheumatoid for quite some time, but has been worse lately. Reports he has chronic back pain for which she had surgery on May 06 for, however rolled over and felt something snap beginning of May. Unclear course of treatment after that. Patient lives alone. He has a daughter Melanie Hanna who assists when needed. We talked about advanced directives, patient is still a full code. He does not have signed documents of healthcare power of bankruptcy attorney. He has an older brother who lives in [facility] ([place]). Patient admits he is depressed but feels better after talking with his brother and his daughter on the phone. States he has been pretty isolated since Cov. Admits he could use some assistance at home and that his pain could be better controlled. . Patient Problems: Chronic Problems (Last Updated 08/06/20 @ 15:34 by Kim Kraus) Atherosclerotic heart disease of [place] coronary artery without angina pectoris (Chronic) History of coronary artery stent placement (Chronic 08/06/20) Successful PCI on OM2 with GAGE. 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 Garcia on 08/06/2020 Atrial fibrillation (Chronic) Lumbar spinal stenosis (Chronic) Atrial fibrillation with rapid ventricular response (Chronic) Muscle spasm (Chronic) GERD (gastroesophageal reflux disease) (Chronic) Rheumatoid arthritis (Chronic) Insomnia (Chronic) BPH (benign prostatic hyperplasia) (Chronic) Appetite loss (Chronic) Abnormal EKG (Chronic) Abnormal echocardiogram (Chronic) Left ventricular hypokinesis (Chronic) Leg pain, bilateral (Chronic) Edema (Chronic) Surgical History: adenoidectomy, cataract, cholecystectomy - Laparoscopic., colectomy - Left., herniorrhaphy - Umbilical, Inguinal., rotator cuff repair - Bilateral., - - Hemorrhoidectomy, Vasectomy. Psychiatric History: No pertinent psych hx Home Medications: Ambulatory Orders Medication Instructions Recorded Hydroxychloroquine [Plaquenil] 200 mg PO BIDCM 10/09/14 Trazodone HCl 150 mg PO QHS 09/22/17 Finasteride [Proscar] 5 mg PO DAILY 12/10/18 methotrexate sodium 2.5 mg tablet 20 mg PO JONES 01/29/19 ascorbic acid (vitamin C) 500 mg 500 mg PO DAILY tab 01/30/19 chewable tablet golimumab 12.5 mg/mL intravenous 135 mg IV [id number] ml 01/30/19 solution eahbqgox-vfijvibv-orzje acid 400 1 tab PO DAILY 04/06/20 mcg-vit K 20 mcg-lycop 300 mcg tablet Apixaban [Eliquis] 2.5 mg PO BID #60 tab 06/01/20 Aspirin [Aspirin, Baby] 81 mg PO DAILY@0800 07/13/20 Cyanocobalamin (Vitamin B-12) 500 mcg PO DAILY 07/13/20 [Vitamin B-12] Topiramate [Topamax] 25 mg PO BID 07/13/20 Metoprolol Tartrate [Lopressor 12.5 mg PO BID 07/18/20 (beta santiago)] Mirtazapine [Remeron] 7.5 mg PO QHS 07/18/20 Polyethylene Glycol 3350 [Miralax] 17 gm PO DAILY 07/18/20 Senna/Docusate Sodium [Senokot-S] 2 tab PO BID 07/18/20 Tamsulosin HCl [Flomax] 0.4 mg PO DAILY@1730 07/18/20 Acetaminophen [Tylenol Extra 1,000 mg PO Q6H PRN PRN 08/02/20 Strength] Baclofen [Lioresal] 10 mg PO TID 08/02/20 Bisacodyl [Dulcolax] 10 mg PO DAILY PRN PRN 08/02/20 Folic Acid 1.5 mg PO DAILY 08/02/20 Magnesium Hydroxide [Milk Of 30 ml PO DAILY PRN PRN 08/02/20 Magnesia] Menthol/Lanolin/Calamine/Znox 1 applic TOPICAL BID 08/02/20 [Calmoseptine Ointment] Nystatin Powder [Mycostatin Powder] 1 applic TOPICAL BID 08/02/20 Oxycodone [Oxyir] 15 mg PO Q4H PRN PRN 08/02/20 Potassium Chloride Oral Tablet 10 meq PO DAILY 08/02/20 [K-Dur] Allergies No Known Allergies Allergy (Verified 08/02/20 17:43) Maternal Family History: Family History (Last Reviewed 08/07/20 @ 12:31 by MARTIN Staley) Father CVA (cerebral vascular accident) Brother CAD (coronary artery disease) Mother CVA (cerebral vascular accident) Grandfather Cancer History Items: No pertinent history Paternal Family History: Family History (Last Reviewed 08/07/20 @ 12:31 by MARTIN Staley) Father CVA (cerebral vascular accident) Brother CAD (coronary artery disease) Mother CVA (cerebral vascular accident) Grandfather Cancer History Items: No pertinent history - Social History Lives: Alone Smoking Status: Former smoker Alcohol: None Drugs: None Code Status: Full Code Review of Systems Constitutional: Reports: Anorexia, Weakness, Weight Change, Fatigue. Denies: Chills, Fever Eyes: Denies: Vision Change HEENT: Reports: Difficulty Hearing. Denies: Difficulty Swallowing, Sore Throat Cardiovascular: Reports: Edema, Palpitations. Denies: Chest Pain, Chest Tightness Respiratory: Reports: Shortness of Breath. Denies: Cough, Wheezing Gastrointestinal: Reports: Constipation. Denies: Abdominal Pain, Diarrhea, Nausea, Vomiting Genitourinary: Denies: Dysuria, Hematuria Musculoskeletal: Reports: Back Pain, Leg Pain, Muscle pain, - - L wrist pain Skin: Reports: Dryness. Denies: Wounds Neurological: Reports: Balance problems. Denies: Change in Speech, Focal weakness, Numbness, Tingling Psychiatric: Reports: Depression Hematologic/ Lymphatic: Reports: Easy Bruising Physical Exam Subjective: Sitting up in chair he is a little better today but very tired General: Alert, Oriented x3, Cooperative HEENT: Atraumatic, Normocephalic Oral: Dry Mucosa Neck: Supple, No JVD, Trachea Midline Cardiovascular: Regular rate, Regular Rhythm, Normal S1, Normal S2 Abdomen: Bowel Sounds Present, Soft, Non Tender Extremities: No clubbing, No cyanosis, Capillary Refill Less than 3 Seconds, - - Trace lower extremity Skin: No rashes, No breakdown Musculoskeletal: Arthritic Changes, Cachexia, Tenderness Neurological: Cranial nerves II-XII grossly intact Psych/Mental Status: Normal Affect, Appropriate, - - Somewhat depressed Objective: Vital Signs Temp Pulse Resp BP Pulse Ox 97.8 F 75 16 156/97 H 97 08/07/20 08:00 08/07/20 11:00 08/07/20 10:00 08/07/20 11:00 08/07/20 11:00 Oxygen Delivery Method Room Air Weight: 60.4 kg Body Mass Index (BMI) 22.8 Intake and Output for Last 24 Hours 08/05/20 08/06/20 08/07/20 23:59 23:59 23:59 Intake Total 1150.10 / 1158.10 1195.59 / 1395.59 200 / 200 Output Total 2675 / 2675 1325 / 1800 975 / 975 Balance -1524.90 / -1516.90 -129.41 / -404.41 -775 / -775 Microbiology Past 72 Hours 08/04/20 15:00 Urine Culture - Final Urine, Clean Catch Proteus mirabilis 08/04/20 14:00 SARS-CoV-2 Antigen (Rapid) - Final Mucosa - Nasopharyngeal Laboratory Tests Past 24 Hrs 08/07/20 08/07/20 03:45 03:45 WBC 6.6 RBC 3.45 L Hgb 10.3 L Hct 32.5 L MCV 94.2 H MCH 29.9 MCHC 31.7 L RDW Std Deviation 54.8 H RDW Coeff of Jaciel 15.9 H Plt Count 239 MPV 9.9 Sodium 141 Potassium 4.1 Chloride 110 H Carbon Dioxide 27.0 Anion Gap 4 L BUN 17 Creatinine 0.70 Estim Creat Clear Calc 49.79 Est GFR (MDRD) Af Amer 140 Est GFR (MDRD) Non-Af 116 BUN/Creatinine Ratio 24.2 H Glucose 93 Calcium 8.4 L Total Bilirubin 0.20 AST 17 ALT 64 H Alkaline Phosphatase 154 H Total Protein 5.6 L Albumin 2.2 L Globulin 3.4 Albumin/Globulin Ratio 0.6 L Assessment/Plan All Active Problems (Last Updated 08/06/20 @ 15:34 by Kim Kraus) Left groin pain (Acute) Debility (Acute) SVT (supraventricular tachycardia) (Acute) Scrotal pain (Acute) Right groin pain (Acute) Right hip joint effusion (Acute) Fever (Acute) Inflammatory arthritis (Acute) NSTEMI (non-ST elevated myocardial infarction) (Acute) Fever (Acute) Recurrent umbilical hernia (Resolved) 79-year-old male with complicated hospital course, seen today for palliative care consultation related to his debility and weakness, as well as chronic pain to the back, groin, and wrist, which has a torn tendon per his report. 1. Chronic pain: He is on baclofen 10 mg 3 times daily, as needed Tylenol ES, methotrexate, and Solu-Medrol 40 mg IV daily for now. He also gets oxycodone 15 mg every 4 hours as needed for pain, which he has been taking consistently. Medications will likely need adjusted as an outpatient. He may benefit from a longer acting opioid, but we will see how he feels once gout and acute inflammatory process has resolved. 2. Groin and leg pain: Radiculopathy? Has joint effusions. History of back surgery. see above 3. Recent non-STEMI with PCI: Still recovering, will follow up with cardiology. Likely contributing to his weakness. Continue with physical therapy and we will follow up as an outpatient. 4. Malnutrition: Following with dietitian, should have supplemental drinks when he is discharged. 5. A. fib/GERD/RA/SVT/insomnia/BPH/inflammatory arthritis: Complicates overall care, management, recovery, and prognosis. Follow-up with PCP and specialist for management. Greater than 50% of care [id number] discussing education and counseling regarding palliative care services, expected course of treatment, recent decline in mobility and pain management. Discussed options after DC for palliative follow-up, he is agreeable to services and we will have RN follow-up within a couple days of discharge to reassess. Thank you for the opportunity to participate in this patient's care, please do not hesitate to contact [facility] with any further questions or concerns. Palliative direct line is [phone]. We will have patient follow up in her home approximately 3 days after discharge and will discuss palliative services further.
--- NOTE | 2020-08-07 12:52 | CASEMGMT ---
Social Work SW spoke with [facility] in TCU. TCU will have a bed available for pt on Monday. SW met with pt in room and discussed discharge plan. Pt is agreeable to transfer to TCU when able. Plan: TCU, bed available on Monday FARHAN Calix
--- NOTE | 2020-08-07 15:52 | NURSING ---
report called to [facility] for transfer to room 109, transferred per chair with belongings
--- NOTE | 2020-08-07 16:07 | NURSING ---
daughter updated informed pt transferring to pcu 109
[2020-08-07] MEDS: Tamsulosin HCl 0.4 MG Capsule PO (16:31)
[2020-08-07] MEDS: APIXABAN 2.5 MG TABLET PO (21:24)
[2020-08-07] MEDS: Mirtazapine 15 MG Tablet 7.5 MG PO (21:24)
[2020-08-07] MEDS: Atorvastatin Calcium 40 MG Tablet PO (21:24)
[2020-08-07] MEDS: traZODone 50 MG Tablet 150 MG PO (23:03)
[2020-08-08] VITALS (11 sets, daily range): BP systolic 97–139; BP diastolic 57–76; PULSE 54–73; RESP 16–18; TEMP 36.5–36.7; O2SAT 96–98
[2020-08-08] MEDS: oxyCODONE 5 MG Tablet 15 MG PO ×3 (00:30→20:39)
[2020-08-08] MEDS: Cephalexin 500 MG Capsule PO ×3 (05:16→22:05)
[2020-08-08] MEDS: Baclofen 10 MG Tablet PO ×3 (05:16→22:05)
--- NOTE | 2020-08-08 07:50 | PCM.PN.HOSP ---
Patient Problems: Active and Suspected Problems (Last Updated 08/06/20 @ 15:34 by Kim Kraus) Left groin pain (Acute) Debility (Acute) SVT (supraventricular tachycardia) (Acute) Right hip joint effusion (Acute) Fever (Acute) Inflammatory arthritis (Acute) NSTEMI (non-ST elevated myocardial infarction) (Acute) Fever (Acute) Reason for Visit: Acute non-STEMI Subjective: Patient underwent left heart catheterization on 08/06/2020 with successful PCI of OM 2 with GAGE, unsuccessful PCI USABILITY STRATEGIST of the LAD 08/08/2020; Transferred to PCU; complains of bilateral wrist pain Objective: GENERAL: Cooperative HEENT: Atraumatic; EYES; Anicteric, Normal Conjunctiva NECK; supple, normal thyroid, RESPIRATORY: Diminished to auscultation CARDIOVASCULAR: S1-S2 GI: soft, normoactive bowel sounds, : No Renal angle tenderness; EXTREMITIES: No edema, no clubbing, MUSCULOSKELETAL: Left right wrist swelling, movement restricted in right hip NEURO: Awake; no lateralizing signs. SKIN: No Rash PSYCH; Flat affect Vitals/I&O's: Vital Signs Temp Pulse Resp BP Pulse Ox 98.0 F 60 16 139/68 H 97 08/08/20 05:10 08/08/20 05:10 08/08/20 05:10 08/08/20 05:10 08/08/20 05:10 Oxygen Delivery Method Room Air Weight: 58.2 kg Body Mass Index (BMI) 22.8 Intake and Output for Last 24 Hours 08/06/20 08/07/20 08/08/20 23:59 23:59 23:59 Intake Total 1195.59 / 1395.59 760 / 760 120 / 120 Output Total 1325 / 1800 1575 / 1575 425 / 425 Balance -129.41 / -404.41 -815 / -815 -305 / -305 Microbiology Past 72 Hours 08/04/20 15:00 Urine, Clean Catch Urine Culture - Final Proteus mirabilis Current Medications Acetaminophen (Acetaminophen 500 Mg Tablet) 1,000 mg PO Q6H PRN PRN PRN Reason: 1-10 pain/fever Last Admin: 08/05/20 20:17 Dose: 1,000 mg Documented by: Amiodarone HCl (Amiodarone 200 Mg Tablet) 200 mg PO BID PATRICE Last Admin: 08/07/20 21:24 Dose: 200 mg Documented by: Apixaban (Apixaban 2.5 Mg Tablet) 2.5 mg PO BID [facility] Last Admin: 08/07/20 21:24 Dose: 2.5 mg Documented by: Ascorbic Acid (Ascorbic Acid 500 Mg Tablet) 500 mg PO DAILY [facility] Last Admin: 08/07/20 09:20 Dose: Not Given Documented by: Aspirin (Aspirin 81 Mg Tab.Chew) 81 mg PO DAILY@0800 [facility] Last Admin: 08/07/20 08:48 Dose: 81 mg Documented by: Atorvastatin Calcium (Atorvastatin Calcium 40 Mg Tablet) 40 mg PO QHS [facility] Last Admin: 08/07/20 21:24 Dose: 40 mg Documented by: Atropine Sulfate (Atropine Sulfate 1 Mg/10 Ml Syringe) 0.5 mg IV UD PRN PRN Reason: HR <50 bpm Baclofen (Baclofen 10 Mg Tablet) 10 mg PO TID [facility] Last Admin: 08/08/20 05:16 Dose: 10 mg Documented by: Bisacodyl (Bisacodyl 5 Mg Tablet) 10 mg PO DAILY PRN PRN PRN Reason: Constipation Last Admin: 08/03/20 13:23 Dose: 10 mg Documented by: Calamine/Phenol (Menthol/Lanolin/Calamine/Znox 113 Gm Tube) 1 applic TOPICAL BID [facility]; Protocol Last Admin: 08/07/20 21:23 Dose: 1 applicatio Documented by: Cephalexin (Cephalexin 500 Mg Capsule) 500 mg PO Q8 [facility] Last Admin: 08/08/20 05:16 Dose: 500 mg Documented by: Clopidogrel Bisulfate (Clopidogrel Bisulfate 75 Mg Tablet) 75 mg PO DAILY [facility] Last Admin: 08/07/20 08:50 Dose: 75 mg Documented by: Cyanocobalamin (Cyanocobalamin 500 Mcg Tablet) 500 mcg PO DAILY [facility] Last Admin: 08/07/20 08:49 Dose: 500 mcg Documented by: Finasteride (Finasteride 5 Mg Tablet) 5 mg PO DAILY [facility] Last Admin: 08/07/20 08:49 Dose: 5 mg Documented by: Folic Acid (Folic Acid 1 Mg Tablet) 1.5 mg PO DAILYCM [facility] Last Admin: 08/07/20 08:47 Dose: 1.5 mg Documented by: Sodium Chloride () 250 mls @ 15 mls/hr IV .[id number] PRN PRN Reason: Saline Flush Sodium Chloride () 1,000 mls @ 0 mls/hr IV .Q0M [facility] Labetalol HCl (Labetalol (Prefilled) 20 Mg/4 Ml) 5 mg IV X1 PRN PRN Reason: SBP >160 when pulling sheath Stop: 08/08/20 12:46 Magnesium Hydroxide (Magnesium Hydroxide 30 Ml Udc) 30 ml PO DAILY PRN PRN PRN Reason: Constipation Melatonin (Melatonin 3 Mg Tablet) 3 mg PO QHS PRN PRN PRN Reason: INSOMNIA Last Admin: 08/02/20 23:37 Dose: 3 mg Documented by: Methotrexate (Methotrexate 2.5 Mg Tablet) 20 mg PO Bui [facility] Methylprednisolone (Methylprednisolone 40 Mg/Ml Vial) 40 mg IV DAILY [facility] Last Admin: 08/07/20 08:50 Dose: 40 mg Documented by: Metoprolol Tartrate (Metoprolol Tartrate 25 Mg Tablet) 12.5 mg PO BID [facility] Last Admin: 08/07/20 21:25 Dose: 12.5 mg Documented by: Mirtazapine (Mirtazapine 15 Mg Tablet) 7.5 mg PO QHS [facility] Last Admin: 08/07/20 21:24 Dose: 7.5 mg Documented by: Multivitamins/Minerals (Multivitamins,Ther W-Minerals Tablet) [facility] Admin: 08/07/20 08:46 Dose: 1 tablet Documented by: Nutritional Formula (Lactose Free) (Ensure Enlive 120 Ml Liquid) 120 ml PO 4X/DAY [facility] Last Admin: 08/07/20 21:24 Dose: 120 ml Documented by: Nystatin (Nystatin Powder 15gm Bottle) 1 applic TOPICAL BID [facility]; Protocol Last Admin: 08/07/20 21:23 Dose: 1 applicatio Documented by: Ondansetron HCl (Ondansetron 4 Mg/2 Ml Vial) 4 mg IV Q8H PRN PRN PRN Reason: NAUSEA/VOMITING Oxycodone HCl (Oxycodone 5 Mg Tablet) 15 mg PO Q4H PRN PRN PRN Reason: Pain 1-10 Last Admin: 08/08/20 00:30 Dose: 15 mg Documented by: Polyethylene Glycol (Polyethylene Glycol 3350 17 Gm Packet) 17 gm PO DAILY [facility] Last Admin: 08/07/20 09:17 Dose: 17 gm Documented by: Potassium Chloride (Potassium Chloride Oral Tablet 10 Meq) 10 meq PO DAILYCM [facility] Last Admin: 08/07/20 08:48 Dose: 10 meq Documented by: Senna/Docusate Sodium (Senna/Docusate Sodium 1 Tablet) 2 tablet PO BID [facility] Last Admin: 08/07/20 21:25 Dose: 2 tablet Documented by: Sodium Chloride (0.9% Saline Lock 10 Ml Syringe) 10 - 40 ml IV UD PRN PRN Reason: SALINE FLUSH Last Admin: 08/07/20 08:52 Dose: 10 ml Documented by: Sodium Chloride (0.9% Normal Saline 500 Ml Iv.Soln.) 500 ml IV BOLUS PRN PRN Reason: VASO-VAGAL PROTOCOL Tamsulosin HCl (Tamsulosin Hcl 0.4 Mg Capsule) 0.4 mg PO DAILY@1730 [facility] Last Admin: 08/07/20 16:31 Dose: 0.4 mg Documented by: Topiramate (Topiramate 25 Mg Tablet) 25 mg PO BID [facility] Last Admin: 08/07/20 21:24 Dose: 25 mg Documented by: Trazodone HCl (Trazodone 50 Mg Tablet) 150 mg PO QHS [facility] Last Admin: 08/07/20 23:03 Dose: 150 mg Documented by: STROKE Vital Signs/Narrative: Vital Signs Temp Pulse Resp BP Pulse Ox 08/08/20 05:10 98.0 F 60 16 139/68 H 97 Medical Necessity - Tobacco Use Smoking Status: Former smoker Assessment/Plan All Active Problems (Last Updated 08/06/20 @ 15:34 by Kim Kraus) Left groin pain (Acute) Debility (Acute) SVT (supraventricular tachycardia) (Acute) Scrotal pain (Acute) Right groin pain (Acute) Right hip joint effusion (Acute) Fever (Acute) Inflammatory arthritis (Acute) NSTEMI (non-ST elevated myocardial infarction) (Acute) Fever (Acute) Recurrent umbilical hernia (Resolved) Patient is a 79-year-old gentleman with history of rheumatoid arthritis who presented with fever and left wrist and right groin pain 1. Paroxysmal SVT -08/05/2020; patient was found to be relatively hypotensive the day prior with blood pressure of systolic in the 70s while on the regular floor. He later went into SVT he did receive adenosine 6 mg followed by 12 mg patient did not convert, subsequently transferred to the intensive care unit. Did receive Cardizem went back into sinus rhythm with improvement in his blood pressure but went back into SVT cardiology consulted patient started on amiodarone -08/07/2020 remains on amiodarone 200 mg p.o. twice daily 2. Acute non-STEMI Patient was found to have elevated troponin consistent with acute non-STEMI. Patient was on Eliquis discontinued started on heparin with plans for patient to undergo left heart catheterization on 08/06/2020 -08/07/2020 patient underwent left heart catheterization on 08/06/2020 with successful PCI of OM 2 with GAGE, unsuccessful PCI USABILITY STRATEGIST of the LAD - 08/08/2020 seen denies any pain 3. Acute inflammatory polyarthritis ?Patient has had chronic right groin pain for which he underwent IR drainage during his last admission cultures came back negative. Presented this time with left wrist joint involvement. Admitted to regular nursing floor started on steroids. Blood cultures were obtained -08/05/2019; Patient seen still complains of significant left wrist pain as well as right groin pain. Was seen in consultation by Dr Benson's notes and recommendations reviewed Plan was for patient to have been transferred to a transitional care unit this a.m. however his blood pressure was found to be low with systolic in the 70s. Plans for discharge discontinued. Patient resuscitated with IV fluids. -08/06/2020; patient admitted to some improvement in the pain involving the right groin as well as the left wrist 4. Acute cystitis with Proteus mirabilis ?08/05/2020 patient also did complain of dysuria urinalysis obtained was consistent with acute cystitis subsequently started on Rocephin ?08/06/2020 cultures came back positive for Proteus mirabilis antibiotic therapy adjusted 5. Chronic A. fib ?Patient is on metoprolol as well as systemic anticoagulation with Eliquis continued -08/05/2020; Eliquis held patient started on heparin drip in anticipation of left heart catheterization 08/06/2020 6. Rheumatoid arthritis ?Patient is on hydroxychloroquine and methotrexate as well as Golimumab every 2 months. 7. BPH ?Patient is on Flomax and Proscar continue 8. DVT prophylaxis ?Patient on heparin drip 9. Severe malnutrition ?As evidenced by PO intake < 75% for > 3 months and weight loss of 8 % x 3 months. Patient was seen in consultation by dietitian withPlan for dietary supplements and follow up. 10. Physical deconditioning - Requested for PT OT eval and social media community manager to assist with discharge planning (plan is for patient to be transferred back to the TCU when medically stable) Inpatient E&M: [id number] Subs Hosp L2
[2020-08-08] MEDS: Folic Acid 1 MG Tablet 1.5 MG PO (08:39)
[2020-08-08] MEDS: Clopidogrel Bisulfate 75 MG Tablet PO (08:45)
[2020-08-08] MEDS: Finasteride 5 MG Tablet PO (08:46)
[2020-08-08] MEDS: Metoprolol Tartrate 25 MG Tablet 12.5 MG PO ×2 (08:46→22:06)
[2020-08-08] MEDS: Topiramate 25 MG Tablet PO ×2 (08:46→22:07)
[2020-08-08] MEDS: Cyanocobalamin 500 MCG Tablet PO (08:47)
[2020-08-08] MEDS: Multivitamins,Ther W-Minerals Tablet 1 TABLET PO (08:47)
[2020-08-08] MEDS: Senna/Docusate Sodium 1 Tablet 2 TABLET PO ×2 (08:47→22:04)
[2020-08-08] MEDS: Potassium Chloride Oral Tablet 10 MEQ PO (08:47)
[2020-08-08] MEDS: Amiodarone 200 MG Tablet PO ×2 (08:47→22:05)
[2020-08-08] MEDS: Aspirin 81 MG TAB.CHEW PO (08:48)
[2020-08-08] MEDS: APIXABAN 2.5 MG TABLET PO ×2 (08:48→22:05)
[2020-08-08] MEDS: Ascorbic Acid 500 MG Tablet PO (08:48)
[2020-08-08] MEDS: Menthol/Lanolin/Calamine/Znox 113 GM Tube 1 APPLIC TOPICAL ×2 (08:51→22:03)
[2020-08-08] MEDS: Nystatin Powder 15gm Bottle 1 APPLIC TOPICAL ×2 (08:51→22:04)
--- NOTE | 2020-08-08 10:00 | EKG12_ITS ---
Test Reason : AM EKG Blood Pressure : / mmHG Vent. Rate : 052 BPM Atrial Rate : 052 BPM P-R Int : 240 ms QRS Dur : 088 ms QT Int : 472 ms P-R-T Axes : 033 -35 029 degrees QTc Int : 438 ms Sinus bradycardia with 1st degree A-V block Left axis deviation Low voltage QRS Abnormal ECG When compared with ECG of 08-AUG-2020 05:07, MANUAL COMPARISON REQUIRED, DATA IS UNCONFIRMED Confirmed by AMOR PERALES, PER ([id number]), fashion editor DEMARCUS CAMARENA ([id number]) on 08/12/2020 10:23:16 AM Referred By: HOWARD Confirmed By:PER CHINCHILLA MD
[2020-08-08] MEDS: Tamsulosin HCl 0.4 MG Capsule PO (16:44)
[2020-08-08] MEDS: Atorvastatin Calcium 40 MG Tablet PO (22:04)
[2020-08-08] MEDS: Mirtazapine 15 MG Tablet 7.5 MG PO (22:05)
[2020-08-08] MEDS: traZODone 50 MG Tablet 150 MG PO (22:58)
[2020-08-09] VITALS (11 sets, daily range): BP systolic 89–142; BP diastolic 53–71; PULSE 51–73; RESP 16–18; TEMP 36.6–37.4; O2SAT 95–100
[2020-08-09] MEDS: Baclofen 10 MG Tablet PO ×3 (06:06→22:03)
[2020-08-09] MEDS: Cephalexin 500 MG Capsule PO ×3 (06:06→22:02)
--- NOTE | 2020-08-09 07:31 | PN_ITS ---
Patient Problems: Active and Suspected Problems (Last Updated 08/06/20 @ 15:34 by Kim Kraus) Left groin pain (Acute) Debility (Acute) SVT (supraventricular tachycardia) (Acute) Right hip joint effusion (Acute) Fever (Acute) Inflammatory arthritis (Acute) NSTEMI (non-ST elevated myocardial infarction) (Acute) Fever (Acute) Reason for Visit: Acute non-STEMI Adult failure to thrive Subjective: Patient seen had a relatively uneventful night. Consult placed to case management/social science instructor plan is for patient to be transferred to transitional care unit on 08/10/2020 pending bed availability Objective: GENERAL: Cooperative HEENT: Atraumatic; EYES; Anicteric, Normal Conjunctiva NECK; supple, normal thyroid, RESPIRATORY: Diminished to auscultation CARDIOVASCULAR: S1-S2 GI: soft, normoactive bowel sounds, : No Renal angle tenderness; EXTREMITIES: No edema, no clubbing, MUSCULOSKELETAL: Left right wrist swelling, movement restricted in right hip NEURO: Awake; no lateralizing signs. SKIN: No Rash PSYCH; Flat affect Vitals/I&O's: Vital Signs Temp Pulse Resp BP Pulse Ox 98.3 F 62 16 125/67 H 96 08/09/20 03:46 08/09/20 03:46 08/09/20 03:46 08/09/20 03:46 08/09/20 03:46 Oxygen Delivery Method Room Air Weight: 58.1 kg Body Mass Index (BMI) 22.8 Intake and Output for Last 24 Hours 08/07/20 08/08/20 08/10/20 23:59 23:59 00:59 Intake Total 760 / 760 1080 / 1080 50 / 50 Output Total 1575 / 1575 1675 / 1675 600 / 600 Balance -815 / -815 -595 / -595 -550 / -550 Microbiology Past 72 Hours 08/04/20 15:00 Urine, Clean Catch Urine Culture - Final Proteus mirabilis Current Medications Acetaminophen (Acetaminophen 500 Mg Tablet) 1,000 mg PO Q6H PRN PRN PRN Reason: 1-10 pain/fever Last Admin: 08/05/20 20:17 Dose: 1,000 mg Documented by: Amiodarone HCl (Amiodarone 200 Mg Tablet) 200 mg PO BID PATRICE Last Admin: 08/08/20 22:05 Dose: 200 mg Documented by: Apixaban (Apixaban 2.5 Mg Tablet) 2.5 mg PO BID [facility] Last Admin: 08/08/20 22:05 Dose: 2.5 mg Documented by: Ascorbic Acid (Ascorbic Acid 500 Mg Tablet) 500 mg PO DAILY [facility] Last Admin: 08/08/20 08:48 Dose: 500 mg Documented by: Aspirin (Aspirin 81 Mg Tab.Chew) 81 mg PO DAILY@0800 [facility] Last Admin: 08/08/20 08:48 Dose: 81 mg Documented by: Atorvastatin Calcium (Atorvastatin Calcium 40 Mg Tablet) 40 mg PO QHS [facility] Last Admin: 08/08/20 22:04 Dose: 40 mg Documented by: Atropine Sulfate (Atropine Sulfate 1 Mg/10 Ml Syringe) 0.5 mg IV UD PRN PRN Reason: HR <50 bpm Baclofen (Baclofen 10 Mg Tablet) 10 mg PO TID [facility] Last Admin: 08/09/20 06:06 Dose: 10 mg Documented by: Bisacodyl (Bisacodyl 5 Mg Tablet) 10 mg PO DAILY PRN PRN PRN Reason: Constipation Last Admin: 08/03/20 13:23 Dose: 10 mg Documented by: Calamine/Phenol (Menthol/Lanolin/Calamine/Znox 113 Gm Tube) 1 applic TOPICAL BID [facility]; Protocol Last Admin: 08/08/20 22:03 Dose: 1 applicatio Documented by: Cephalexin (Cephalexin 500 Mg Capsule) 500 mg PO Q8 [facility] Last Admin: 08/09/20 06:06 Dose: 500 mg Documented by: Clopidogrel Bisulfate (Clopidogrel Bisulfate 75 Mg Tablet) 75 mg PO DAILY [facility] Last Admin: 08/08/20 08:45 Dose: 75 mg Documented by: Cyanocobalamin (Cyanocobalamin 500 Mcg Tablet) 500 mcg PO DAILY [facility] Last Admin: 08/08/20 08:47 Dose: 500 mcg Documented by: Finasteride (Finasteride 5 Mg Tablet) 5 mg PO DAILY [facility] Last Admin: 08/08/20 08:46 Dose: 5 mg Documented by: Folic Acid (Folic Acid 1 Mg Tablet) 1.5 mg PO DAILYCOX MONETT Last Admin: 08/08/20 08:39 Dose: 1.5 mg Documented by: Sodium Chloride () 250 mls @ 15 mls/hr IV .[id number] PRN PRN Reason: Saline Flush Sodium Chloride () 1,000 mls @ 0 mls/hr IV .Q0M [facility] Magnesium Hydroxide (Magnesium Hydroxide 30 Ml Udc) 30 ml PO DAILY PRN PRN PRN Reason: Constipation Melatonin (Melatonin 3 Mg Tablet) 3 mg PO QHS PRN PRN PRN Reason: INSOMNIA Last Admin: 08/02/20 23:37 Dose: 3 mg Documented by: Methotrexate (Methotrexate 2.5 Mg Tablet) 20 mg PO Bui [facility] Methylprednisolone (Methylprednisolone 40 Mg/Ml Vial) 40 mg IV DAILY [facility] Last Admin: 08/08/20 08:48 Dose: 40 mg Documented by: Metoprolol Tartrate (Metoprolol Tartrate 25 Mg Tablet) 12.5 mg PO BID [facility] Last Admin: 08/08/20 22:06 Dose: 12.5 mg Documented by: Mirtazapine (Mirtazapine 15 Mg Tablet) 7.5 mg PO QHS [facility] Last Admin: 08/08/20 22:05 Dose: 7.5 mg Documented by: Multivitamins/Minerals (Multivitamins,Ther W-Minerals Tablet) 1 tablet PO DAILYCOX MONETT Last Admin: 08/08/20 08:47 Dose: 1 tablet Documented by: Nutritional Formula (Lactose Free) (Ensure Enlive 120 Ml Liquid) 120 ml PO 4X/DAY [facility] Last Admin: 08/08/20 22:03 Dose: 120 ml Documented by: Nystatin (Nystatin Powder 15gm Bottle) 1 applic TOPICAL BID [facility]; Protocol Last Admin: 08/08/20 22:04 Dose: 1 applicatio Documented by: Ondansetron HCl (Ondansetron 4 Mg/2 Ml Vial) 4 mg IV Q8H PRN PRN PRN Reason: NAUSEA/VOMITING Oxycodone HCl (Oxycodone 5 Mg Tablet) 15 mg PO Q4H PRN PRN PRN Reason: Pain 1-10 Last Admin: 08/08/20 20:39 Dose: 15 mg Documented by: Polyethylene Glycol (Polyethylene Glycol 3350 17 Gm Packet) 17 gm PO DAILY [facility] Last Admin: 08/08/20 08:54 Dose: Not Given Documented by: Potassium Chloride (Potassium Chloride Oral Tablet 10 Meq) 10 meq PO DAILYCOX MONETT Last Admin: 08/08/20 08:47 Dose: 10 meq Documented by: Senna/Docusate Sodium (Senna/Docusate Sodium 1 Tablet) 2 tablet PO BID [facility] Last Admin: 08/08/20 22:04 Dose: 2 tablet Documented by: Sodium Chloride (0.9% Saline Lock 10 Ml Syringe) 10 - 40 ml IV UD PRN PRN Reason: SALINE FLUSH Last Admin: 08/07/20 08:52 Dose: 10 ml Documented by: Sodium Chloride (0.9% Normal Saline 500 Ml Iv.Soln.) 500 ml IV BOLUS PRN PRN Reason: VASO-VAGAL PROTOCOL Tamsulosin HCl (Tamsulosin Hcl 0.4 Mg Capsule) 0.4 mg PO DAILY@1730 [facility] Last Admin: 08/08/20 16:44 Dose: 0.4 mg Documented by: Topiramate (Topiramate 25 Mg Tablet) 25 mg PO BID [facility] Last Admin: 08/08/20 22:07 Dose: 25 mg Documented by: Trazodone HCl (Trazodone 50 Mg Tablet) 150 mg PO QHS [facility] Last Admin: 08/08/20 22:58 Dose: 150 mg Documented by: STROKE Vital Signs/Narrative: Vital Signs Temp Pulse Resp BP Pulse Ox 08/09/20 03:46 98.3 F 62 16 125/67 H 96 Medical Necessity - Tobacco Use Smoking Status: Former smoker Assessment/Plan All Active Problems (Last Updated 08/06/20 @ 15:34 by Kim Kraus) Left groin pain (Acute) Debility (Acute) SVT (supraventricular tachycardia) (Acute) Scrotal pain (Acute) Right groin pain (Acute) Right hip joint effusion (Acute) Fever (Acute) Inflammatory arthritis (Acute) NSTEMI (non-ST elevated myocardial infarction) (Acute) Fever (Acute) Recurrent umbilical hernia (Resolved) Patient is a 79-year-old gentleman with history of rheumatoid arthritis who presented with fever and left wrist and right groin pain 1. Paroxysmal SVT -08/05/2020; patient was found to be relatively hypotensive the day prior with blood pressure of systolic in the 70s while on the regular floor. He later went into SVT he did receive adenosine 6 mg followed by 12 mg patient did not conver t, subsequently transferred to the intensive care unit. Did receive Cardizem went back into sinus rhythm with improvement in his blood pressure but went back into SVT cardiology consulted patient started on amiodarone -08/07/2020 remains on amiodarone 200 mg p.o. twice daily 2. Acute non-STEMI Patient was found to have elevated troponin consistent with acute non-STEMI. 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 Acute inflammatory polyarthritis ?Patient has had chronic right groin pain for which he underwent IR drainage during his last admission cultures came back negative. Presented this time with left wrist joint involvement. Admitted to regular nursing floor started on steroids. Blood cultures were obtained -08/05/2019; Patient seen still complains of significant left wrist pain as well as right groin pain. Was seen in consultation by Dr Benson's notes and recommendations reviewed Plan was for patient to have been transferred to a transitional care unit this a.m. however his blood pressure was found to be low with systolic in the 70s. Plans for discharge discontinued. Patient resuscitated with IV fluids. -08/06/2020; patient admitted to some improvement in the pain involving the right groin as well as the left wrist 4. Acute cystitis with Proteus mirabilis ?08/05/2020 patient also did complain of dysuria urinalysis obtained was consistent with acute cystitis subsequently started on Rocephin ?08/06/2020 cultures came back positive for Proteus mirabilis antibiotic therapy adjusted 5. Chronic A. fib ?Patient is on metoprolol as well as systemic anticoagulation with Eliquis continued -08/05/2020; Eliquis held patient started on heparin drip in anticipation of left heart catheterization 08/06/2020 6. Rheumatoid arthritis ?Patient is on hydroxychloroquine and methotrexate as well as Golimumab every 2 months. 7. BPH ?Patient is on Flomax and Proscar continue 8. DVT prophylaxis ?Patient on heparin drip 9. Severe malnutrition ?As evidenced by PO intake < 75% for > 3 months and weight loss of 8 % x 3 months. Patient was seen in consultation by dietitian with Plan for dietary supplements and follow up. 10. Physical deconditioning - Requested for PT OT eval and bilingual social worker to assist with discharge planning (plan is for patient to be transferred back to the TCU when medically stable) - Patient seen had a relatively uneventful night. Consult placed to case management/social science instructor plan is for patient to be transferred to transitional care unit on 08/10/2020 pending bed availability Inpatient E&M: [id number] Subs Hosp L2
[2020-08-09] MEDS: Metoprolol Tartrate 25 MG Tablet 12.5 MG PO ×2 (09:46→22:04)
[2020-08-09] MEDS: Clopidogrel Bisulfate 75 MG Tablet PO (09:46)
[2020-08-09] MEDS: Ascorbic Acid 500 MG Tablet PO (09:47)
[2020-08-09] MEDS: Cyanocobalamin 500 MCG Tablet PO (09:47)
[2020-08-09] MEDS: Senna/Docusate Sodium 1 Tablet 2 TABLET PO ×2 (09:47→22:05)
[2020-08-09] MEDS: Topiramate 25 MG Tablet PO ×2 (09:48→22:03)
[2020-08-09] MEDS: Finasteride 5 MG Tablet PO (09:48)
[2020-08-09] MEDS: APIXABAN 2.5 MG TABLET PO ×2 (09:48→22:02)
[2020-08-09] MEDS: Multivitamins,Ther W-Minerals Tablet 1 TABLET PO (09:49)
[2020-08-09] MEDS: Potassium Chloride Oral Tablet 10 MEQ PO (09:49)
[2020-08-09] MEDS: Folic Acid 1 MG Tablet 1.5 MG PO (09:49)
[2020-08-09] MEDS: Amiodarone 200 MG Tablet PO ×2 (09:49→22:03)
[2020-08-09] MEDS: Aspirin 81 MG TAB.CHEW PO (09:50)
[2020-08-09] MEDS: Methotrexate 2.5 MG Tablet 20 MG PO (09:50)
[2020-08-09] MEDS: Nystatin Powder 15gm Bottle 1 APPLIC TOPICAL (09:51)
[2020-08-09] MEDS: Menthol/Lanolin/Calamine/Znox 113 GM Tube 1 APPLIC TOPICAL (09:51)
--- NOTE | 2020-08-09 10:00 | EKG12_ITS ---
Test Reason : AM EKG Blood Pressure : / mmHG Vent. Rate : 062 BPM Atrial Rate : 062 BPM P-R Int : 202 ms QRS Dur : 094 ms QT Int : 446 ms P-R-T Axes : 077 -22 052 degrees QTc Int : 452 ms Normal sinus rhythm Low voltage QRS Borderline ECG When compared with ECG of 07-AUG-2020 03:54, MANUAL COMPARISON REQUIRED, DATA IS UNCONFIRMED Confirmed by AMOR PERALES, PER ([id number]), editor managing newspaper DEMARCUS CAMARENA ([id number]) on 08/12/2020 10:24:29 AM Referred By: HOWARD Confirmed By:PER CHINCHILLA MD
--- NOTE | 2020-08-09 15:56 | PCM.PN.CARD ---
Subjectve: Patient is doing well from a cardiac standpoint. Denies any significant cardiac complaints. Objective: Vital Signs Temp Pulse Resp BP Pulse Ox 99.3 F H 62 18 89/53 L 99 08/09/20 14:01 08/09/20 15:00 08/09/20 14:01 08/09/20 14:01 08/09/20 14:01 Oxygen Delivery Method Room Air Weight: 128 lb 1.417 oz Body Mass Index (BMI) 22.8 Intake and Output for Last 24 Hours 08/07/20 08/08/20 08/10/20 23:59 23:59 00:59 Intake Total 760 / 760 1080 / 1080 530 / 530 Output Total 1575 / 1575 1675 / 1675 601 / 601 Balance -815 / -815 -595 / -595 -71 / -71 General: Awake, Alert, Oriented x 3 HEENT: Atraumatic Cardiovascular: Regular Rhythm Skin: No Rashes Rhythm: EKG: ECHO: Stress Test: Cardiac Cath: PCI: CT Surgery: Holter monitor: EPS: PPM: CXR: Chest CT Scan: Medical Necessity - Tobacco Use Smoking Status: Former smoker Assessment/Plan 1. Paroxysmal atrial fibrillation: Currently in sinus rhythm. Continue current medications. In 1 month the aspirin can be discontinued and patient can be on Plavix and Eliquis. At that time Eliquis can be increased to 5 mg p.o. twice daily. 2. Non-STEMI: Status post PCI to OM. He does have chronically occluded LAD which will be treated medically. From a cardiac standpoint patient can be transferred to the TCU. We will sign off at this time. If we can be of any further assistance please let us know.
[2020-08-09] MEDS: Tamsulosin HCl 0.4 MG Capsule PO (16:34)
[2020-08-09] MEDS: Acetaminophen 500 MG Tablet 1000 MG PO (16:34)
[2020-08-09] MEDS: oxyCODONE 5 MG Tablet 15 MG PO (22:01)
[2020-08-09] MEDS: Atorvastatin Calcium 40 MG Tablet PO (22:02)
[2020-08-09] MEDS: Mirtazapine 15 MG Tablet 7.5 MG PO (22:04)
[2020-08-09] MEDS: traZODone 50 MG Tablet 150 MG PO (23:07)
[2020-08-10 03:00] VITALS: PULSE 53
[2020-08-10 03:36] VITALS: BP 119/66; PULSE 56; RESP 16; TEMP 36.7; O2SAT 98
[2020-08-10] MEDS: Cephalexin 500 MG Capsule PO (06:08)
[2020-08-10] MEDS: Baclofen 10 MG Tablet PO (06:09)
[2020-08-10 07:00] VITALS: PULSE 54
[2020-08-10 09:35] VITALS: BP 97/54; PULSE 75; RESP 18; TEMP 36.5; O2SAT 99
[2020-08-10] MEDS: Aspirin 81 MG TAB.CHEW PO (10:07)
[2020-08-10] MEDS: Folic Acid 1 MG Tablet 1.5 MG PO (10:08)
[2020-08-10] MEDS: Ascorbic Acid 500 MG Tablet PO (10:09)
[2020-08-10] MEDS: Multivitamins,Ther W-Minerals Tablet 1 TABLET PO (10:10)
[2020-08-10] MEDS: Potassium Chloride Oral Tablet 10 MEQ PO (10:10)
[2020-08-10] MEDS: Menthol/Lanolin/Calamine/Znox 113 GM Tube 1 APPLIC TOPICAL (10:10)
[2020-08-10] MEDS: APIXABAN 2.5 MG TABLET PO (10:11)
[2020-08-10] MEDS: Amiodarone 200 MG Tablet PO (10:11)
[2020-08-10] MEDS: Clopidogrel Bisulfate 75 MG Tablet PO (10:12)
[2020-08-10] MEDS: Nystatin Powder 15gm Bottle 1 APPLIC TOPICAL (10:12)
[2020-08-10] MEDS: Finasteride 5 MG Tablet PO (10:13)
[2020-08-10] MEDS: Senna/Docusate Sodium 1 Tablet 2 TABLET PO (10:13)
[2020-08-10] MEDS: Topiramate 25 MG Tablet PO (10:13)
[2020-08-10] MEDS: Cyanocobalamin 500 MCG Tablet PO (10:14)
[2020-08-10] MEDS: 0.9% Saline Lock 10 ML Syringe IV (10:14)
[2020-08-10 10:21] VITALS: BP 97/54; PULSE 75
--- NOTE | 2020-08-10 10:24 | PCM.TXEXTCAR ---
- Diet 08/02/20 21:55 Diet: Regular - General Food consistency:: Regular Liquid Consistency:: Regular/Thin - Routine Orders/Code Status Routine Lab Work: CBC, BMP Code Status: Full Code - Wound(s) Rt Wrist Wound Type: Puncture - Therapies Weight Bearing: Full weight bearing Physical Therapy: Eval and Treat Occupational Therapy: Eval and Treat - Allergies/Procedures Done in Hospital Allergies/Adverse Reactions: Allergies No Known Allergies Allergy (Verified 08/02/20 17:43) Procedures: 2-D Echocardiogram, Cardiac catheterization - Type of Care/Length of Stay Estimated LOS: Convalescent Care Less Than 30 days Type of Care Needed: Skilled Rehab Potential: Good Prognosis: Good - Additional Orders/Day of Discharge Day of Discharge: 08/10/20 - Dietary and Speech Recommendations Dietitian Recommendations/Changes: continue regular diet d/t acute malnutrition; will add 120mL ensure enlive 4x/day (no chocolate) - Follow Up Care Primary Care Physician: Gloria Hazel MD [Primary Care Provider] - Please Follow Up With: Laith Garcia MD When: 2-4 weeks
[2020-08-10] MEDS: Acetaminophen 500 MG Tablet 1000 MG PO (10:27)
--- NOTE | 2020-08-10 10:28 | DS.PCM_ITS ---
Discharge Date and Diagnosis - Problem List Patient Problems: Active and Suspected Problems (Last Updated 08/06/20 @ 15:34 by Kim Kraus) Left groin pain (Acute) Debility (Acute) SVT (supraventricular tachycardia) (Acute) Right hip joint effusion (Acute) Fever (Acute) Inflammatory arthritis (Acute) NSTEMI (non-ST elevated myocardial infarction) (Acute) Fever (Acute) Date of Admission: 08/07/20 Date of Discharge: 08/10/20 - Primary Discharge Diagnosis Acute Problems: Active Problems (Last Updated 08/06/20 @ 15:34 by Kim Kraus) Left groin pain (Acute) Debility (Acute) SVT (supraventricular tachycardia) (Acute) Right hip joint effusion (Acute) Fever (Acute) Inflammatory arthritis (Acute) NSTEMI (non-ST elevated myocardial infarction) (Acute) Fever (Acute) - Secondary Discharge Diagnosis Chronic Problems: Chronic Problems (Last Updated 08/06/20 @ 15:34 by Kim Kraus) Atherosclerotic heart disease of [place] coronary artery without angina pectoris (Chronic) History of coronary artery stent placement (Chronic 08/06/20) Successful PCI on OM2 with GAGE. Unsuccessful PCI of HOSPITALIST PHYSICIAN of [facility] per Dr. Garcia on 08/06/2020 Atrial fibrillation (Chronic) Lumbar spinal stenosis (Chronic) Atrial fibrillation with rapid ventricular response (Chronic) Muscle spasm (Chronic) GERD (gastroesophageal reflux disease) (Chronic) Rheumatoid arthritis (Chronic) Insomnia (Chronic) BPH (benign prostatic hyperplasia) (Chronic) Appetite loss (Chronic) Abnormal EKG (Chronic) Abnormal echocardiogram (Chronic) Left ventricular hypokinesis (Chronic) Leg pain, bilateral (Chronic) Edema (Chronic) Hospital Course and Treatment Imaging Results: Clinical Impression(s) from Imaging Studies Wrist X-Ray 08/02/20 18:17 IMPRESSION: No fracture or dislocation in the left breast. Moderate degenerative change. Widening of the scapholunate distance which is consistent with scapholunate ligament tear. Electronically Signed: Richard Baxter MD at 19:28 EST Tel , Service support , Chest X-Ray 08/02/20 18:57 IMPRESSION: No acute thoracic pathology. Electronically Signed: Richard Baxter MD at 19:27 EST Tel , Service support , Operations: None Procedures: 2-D Echocardiogram, Cardiac catheterization Summary of Care Provided: The patient is a 79 year old M presents with fever. 1. Paroxysmal SVT -08/05/2020; patient was found to be relatively hypotensive the day prior with blood pressure of systolic in the 70s while on the regular floor. He later went into SVT he did receive adenosine 6 mg followed by 12 mg patient did not convert, subsequently transferred to the intensive care unit. Did receive Cardizem went back into sinus rhythm with improvement in his blood pressure but went back into SVT cardiology consulted patient started on amiodarone -08/07/2020 remains on amiodarone 200 mg p.o. twice daily Follow up with cardiology 2. Acute non-STEMI Patient was found to have elevated troponin consistent with acute non-STEMI. Patient was on Eliquis discontinued started on heparin with plans for patient to undergo left heart catheterization on 08/06/2020 -08/07/2020 patient underwent left heart catheterization on 08/06/2020 with successful PCI of OM 2 with GAGE, unsuccessful PCI [facility]IST PHYS[facility] - 08/08/2020 seen denies any pain Per cardiology, ASA for 1 more month, then continue clopidogrel 3. Acute inflammatory polyarthritis ?Patient has had chronic right groin pain for which he underwent IR drainage during his last admission cultures came back negative. Presented this time with left wrist joint involvement. Admitted to regular nursing floor started on steroids. Blood cultures were obtained -08/05/2019; Patient seen still complains of significant left wrist pain as well as right groin pain. Was seen in consultation by Dr Benson's notes and recommendations reviewed Plan was for patient to have been transferred to a transitional care unit this a.m. however his blood pressure was found to be low with systolic in the 70s. Plans for discharge discontinued. Patient resuscitated with IV fluids. -08/06/2020; patient admitted to some improvement in the pain involving the right groin as well as the left wrist Discharge with prednisone taper. Follow up with rheumatology. 4. Acute cystitis with Proteus mirabilis ?08/05/2020 patient also did complain of dysuria urinalysis obtained was consistent with acute cystitis subsequently started on Rocephin ?08/06/2020 cultures came back positive for Proteus mirabilis antibiotic therapy adjusted Cephalexin through the 5. Chronic A. fib ?Patient is on metoprolol as well as systemic anticoagulation with Eliquis continued -08/05/2020; Eliquis held patient started on heparin drip in anticipation of left heart catheterization 08/06/2020 Resume apixaban 6. Rheumatoid arthritis ?Patient is on hydroxychloroquine and methotrexate as well as Golimumab every 2 months. 7. BPH ?Patient is on Flomax and Proscar continue 8. DVT prophylaxis ?Patient on heparin drip 9. Severe malnutrition ?As evidenced by PO intake < 75% for > 3 months and weight loss of 8 % x 3 months. Patient was seen in consultation by dietitian with Plan for dietary supplements and follow up. 10. Physical deconditioning - Requested for PT OT eval and social media senior associate to assist with discharge planning (plan is for patient to be transferred back to the TCU when medically stable) - Patient seen had a relatively uneventful night. Consult placed to case management/licensed social worker plan is for patient to be transferred to transitional care unit on 08/10/2020 pending bed availability DC to TCU on 08/10. [] Patient Problems: Active and Suspected Problems (Last Updated 08/06/20 @ 15:34 by Kim Kraus) Left groin pain (Acute) Debility (Acute) SVT (supraventricular tachycardia) (Acute) Right hip joint effusion (Acute) Fever (Acute) Inflammatory arthritis (Acute) NSTEMI (non-ST elevated myocardial infarction) (Acute) Fever (Acute) - Physical Exam Vitals/I&O's: Vital Signs Temp Pulse Resp BP Pulse Ox 36.5 C L 75 18 97/54 L 99 08/10/20 09:35 08/10/20 10:08/10/20 09:35 08/10/20 10:08/10/20 09:35 Oxygen Delivery Method Room Air Weight: 56.7 kg Body Mass Index (BMI) 22.8 Intake and Output for Last 24 Hours 08/08/20 08/09/20 08/10/20 22:59 23:59 23:59 Intake Total 100 / 100 Output Total 250 / 250 Balance -150 / -150 General: Alert, Cooperative, No apparent distress HEENT: Atraumatic, Normocephalic Oral: Moist Mucosa, No Gingival or Mucosal Lesions/ Ulcerations Neck: No Nodes, Thyroid Normal Size and Texture Lungs: Clear to auscultation, Normal air movement, No rhonchi, No wheeze, No rales Cardiovascular: Regular rate, Regular Rhythm, Normal S1, Normal S2, No murmurs Abdomen: Bowel Sounds Present, Soft, Non Tender, Non-Distended, No Hepato- splenomegaly Extremities: No edema, No Calf Tenderness Psych/Mental Status: Normal Affect, Appropriate Current Medications Acetaminophen (Acetaminophen 500 Mg Tablet) 1,000 mg PO Q6H PRN PRN PRN Reason: 1-10 pain/fever Last Admin: 08/09/20 16:34 Dose: 1,000 mg Documented by: Amiodarone HCl (Amiodarone 200 Mg Tablet) 200 mg PO BID [facility] Last Admin: 08/10/20 10:11 Dose: 200 mg Documented by: Apixaban (Apixaban 2.5 Mg Tablet) 2.5 mg PO BID [facility] Last Admin: 08/10/20 10:11 Dose: 2.5 mg Documented by: Ascorbic Acid (Ascorbic Acid 500 Mg Tablet) 500 mg PO DAILY [facility] Last Admin: 08/10/20 10:09 Dose: 500 mg Documented by: Aspirin (Aspirin 81 Mg Tab.Chew) 81 mg PO DAILY@0800 [facility] Last Admin: 08/10/20 10:07 Dose: 81 mg Documented by: Atorvastatin Calcium (Atorvastatin Calcium 40 Mg Tablet) 40 mg PO QHS [facility] Last Admin: 08/09/20 22:02 Dose: 40 mg Documented by: Atropine Sulfate (Atropine Sulfate 1 Mg/10 Ml Syringe) 0.5 mg IV UD PRN PRN Reason: HR <50 bpm Baclofen (Baclofen 10 Mg Tablet) 10 mg PO TID [facility] Last Admin: 08/10/20 06:09 Dose: 10 mg Documented by: Bisacodyl (Bisacodyl 5 Mg Tablet) 10 mg PO DAILY PRN PRN PRN Reason: Constipation Last Admin: 08/03/20 13:23 Dose: 10 mg Documented by: Calamine/Phenol (Menthol/Lanolin/Calamine/Znox 113 Gm Tube) 1 applic TOPICAL BID [facility]; Protocol Last Admin: 08/10/20 10:10 Dose: 1 applicatio Documented by: Cephalexin (Cephalexin 500 Mg Capsule) 500 mg PO Q8 [facility] Last Admin: 08/10/20 06:08 Dose: 500 mg Documented by: Clopidogrel Bisulfate (Clopidogrel Bisulfate 75 Mg Tablet) 75 mg PO DAILY [facility] Last Admin: 08/10/20 10:12 Dose: 75 mg Documented by: Cyanocobalamin (Cyanocobalamin 500 Mcg Tablet) 500 mcg PO DAILY [facility] Last Admin: 08/10/20 10:14 Dose: 500 mcg Documented by: Finasteride (Finasteride 5 Mg Tablet) 5 mg PO DAILY [facility] Last Admin: 08/10/20 10:13 Dose: 5 mg Documented by: [facility] Acid ([facility] Admin: 08/10/20 10:08 Dose: 1.5 mg Documented by: Sodium Chloride () 250 mls @ 15 mls/hr IV .[id number] PRN PRN Reason: Saline Flush Sodium Chloride () 1,000 mls @ 0 mls/hr IV .Q0M [facility] Magnesium Hydroxide (Magnesium Hydroxide 30 Ml Udc) 30 ml PO DAILY PRN PRN PRN Reason: Constipation Melatonin (Melatonin 3 Mg Tablet) 3 mg PO QHS PRN PRN PRN Reason: INSOMNIA Last Admin: 08/02/20 23:37 Dose: 3 mg Documented by: Methotrexate (Methotrexate 2.5 Mg Tablet) 20 mg PO Jones [facility] Last Admin: 08/09/20 09:50 Dose: 20 mg Documented by: Methylprednisolone (Methylprednisolone 40 Mg/Ml Vial) 40 mg IV DAILY [facility] Last Admin: 08/10/20 10:15 Dose: 40 mg Documented by: Metoprolol Tartrate (Metoprolol Tartrate 25 Mg Tablet) 12.5 mg PO BID [facility] Last Admin: 08/10/20 10:21 Dose: Not Given Documented by: Mirtazapine (Mirtazapine 15 Mg Tablet) 7.5 mg PO QHS [facility] Last Admin: 08/09/20 22:04 Dose: 7.5 mg Documented by: Multivitamins/Minerals (Multivitamins,Ther W-Minerals Tablet) [facility] Last Admin: 08/10/20 10:10 Dose: 1 tablet Documented by: Nutritional Formula (Lactose Free) (Ensure Enlive 120 Ml Liquid) 120 ml PO 4X/DAY [facility] Last Admin: 08/09/20 22:05 Dose: 120 ml Documented by: Nystatin (Nystatin Powder 15gm Bottle) 1 applic TOPICAL BID [facility]; Protocol Last Admin: 08/10/20 10:12 Dose: 1 applicatio Documented by: Ondansetron HCl (Ondansetron 4 Mg/2 Ml Vial) 4 mg IV Q8H PRN PRN PRN Reason: NAUSEA/VOMITING Oxycodone HCl (Oxycodone 5 Mg Tablet) 15 mg PO Q4H PRN PRN PRN Reason: Pain 1-10 Last Admin: 08/09/20 22:01 Dose: 15 mg Documented by: Polyethylene Glycol (Polyethylene Glycol 3350 17 Gm Packet) 17 gm PO DAILY [facility] Last Admin: 08/10/20 10:15 Dose: Not Given Documented by: Potassium Chloride (Potassium Chloride Oral Tablet 10 Meq) [facility] Last Admin: 08/10/20 10:10 Dose: 10 meq Documented by: Senna/Docusate Sodium (Senna/Docusate Sodium 1 Tablet) 2 tablet PO BID [facility] Last Admin: 08/10/20 10:13 Dose: 2 tablet Documented by: Sodium Chloride (0.9% Saline Lock 10 Ml Syringe) 10 - 40 ml IV UD PRN PRN Reason: SALINE FLUSH Last Admin: 08/10/20 10:14 Dose: 10 ml Documented by: Sodium Chloride (0.9% Normal Saline 500 Ml Iv.Soln.) 500 ml IV BOLUS PRN PRN Reason: VASO-VAGAL PROTOCOL Tamsulosin HCl (Tamsulosin Hcl 0.4 Mg Capsule) 0.4 mg PO DAILY@1730 [facility] Last Admin: 08/09/20 16:34 Dose: 0.4 mg Documented by: Topiramate (Topiramate 25 Mg Tablet) 25 mg PO BID [facility] Last Admin: 08/10/20 10:13 Dose: 25 mg Documented by: Trazodone HCl (Trazodone 50 Mg Tablet) 150 mg PO QHS [facility] Last Admin: 08/09/20 23:07 Dose: 150 mg Documented by: Discharge Diet: Low fat/ Low Cholesterol Discharge Activity: Return to Normal Activity Home Medications: Medications to take at Discharge Hydroxychloroquine [Plaquenil] 200 mg PO BID 10/09/14 Trazodone HCl 150 mg PO QHS 09/22/17 Finasteride [Proscar] 5 mg PO DAILY 12/10/18 methotrexate sodium 2.5 mg tablet 20 mg PO JONES 01/29/19 ascorbic acid (vitamin C) 500 mg chewable tablet 500 mg PO DAILY tab 01/30/19 golimumab 12.5 mg/mL intravenous solution 135 mg IV [id number] ml 01/30/19 crfxewql-pvfgzzlk-mxkzl acid 400 mcg-vit K 20 mcg-lycop 300 mcg tablet 1 tab PO DAILY 04/06/20 Apixaban [Eliquis] 2.5 mg PO BID #60 tab 06/01/20 Cyanocobalamin (Vitamin B-12) [Vitamin B-12] 500 mcg PO DAILY 07/13/20 Topiramate [Topamax] 25 mg PO BID 07/13/20 Metoprolol Tartrate [Lopressor (beta nae)] 12.5 mg PO BID 07/18/20 Mirtazapine [Remeron] 7.5 mg PO QHS 07/18/20 Polyethylene Glycol 3350 [Miralax] 17 gm PO DAILY 07/18/20 Senna/Docusate Sodium [Senokot-S] 2 tab PO BID 07/18/20 Tamsulosin HCl [Flomax] 0.4 mg PO DAILY@1730 07/18/20 Acetaminophen [Tylenol] 1,000 mg PO Q6H PRN PRN 08/02/20 Baclofen [Lioresal] 10 mg PO TID 08/02/20 Bisacodyl [Dulcolax] 10 mg PO DAILY PRN PRN 08/02/20 Folic Acid 1.5 mg PO DAILY 08/02/20 Magnesium Hydroxide [Milk Of Magnesia] 30 ml PO DAILY PRN PRN 08/02/20 Menthol/Lanolin/Calamine/Znox [Calmoseptine Ointment] 1 applic TOPICAL BID 08/02/20 Nystatin Powder [Mycostatin Powder] 1 applic TOPICAL BID 08/02/20 Potassium Chloride Oral Tablet [K-Dur] 10 meq PO DAILY 08/02/20 Amiodarone HCl [Cordarone] 200 mg PO BID tablet 08/10/20 Aspirin [Aspirin, Baby] 81 mg PO DAILY@0800 #0 08/10/20 Atorvastatin Calcium [Lipitor] 40 mg PO QHS tablet 08/10/20 Cephalexin [Keflex] 500 mg PO Q8 capsule 08/10/20 Clopidogrel Bisulfate [Plavix] 75 mg PO DAILY tablet 08/10/20 Ensure Enlive 120 ml PO 4X/DAY liquid 08/10/20 Oxycodone [Oxyir] 15 mg PO Q6H PRN 3 Days #12 tab 08/10/20 Prednisone 1 tab PO DAILY #30 tablet 08/10/20 Following Prescriptions Were Given to Patient: Oxycodone [Oxyir] 15 mg PO Q6H PRN 3 Days #12 tab PRN Reason: Pain 1-10 Or Fever Prescription Printed Prednisone 1 tab PO DAILY #30 tablet Other Amb Orders: Phase II, Outpatient Cardiac Rehab Location: None Selected Primary Care Physician: Gloria Hazel MD [Primary Care Provider] - Please Follow Up With: Laith Garcia MD When: 2-4 weeks Disposition: [facility] facility Minutes spent on discharge:: 35 Patient Condition:: Good Medical Necessity - Tobacco Use Smoking Status: Former smoker Meaningful Use Info Meaningful Use Diagnoses (Choose all that apply): AMI - AMI/Post PCI/Angioplasty Aspirin given w/in 24hrs of arrival?: Yes ASA at discharge?: Yes Statins at discharge?: Yes Eber/ARB at discharge?: No Reason Eber/ARB not ordered:: Hypotension Beta Nae at discharge?: Yes Done w/ Acute OH measure.: Yes Documented LVEF (%): 50 Inpatient E&M: [id number] Disch Hosp
[2020-08-10 10:33] VITALS: BP 97/54; PULSE 75; RESP 18; TEMP 36.5; O2SAT 99
--- NOTE | 2020-08-10 10:35 | PHA.DC.MR ---
Pharmacy Service has performed discharge medication reconciliation for this patient. The patient's discharge medication list was reviewed for discrepancies and discrepancies were resolved. Home Medications Hydroxychloroquine [Plaquenil] 200 mg PO BIDCM 10/09/14 Trazodone HCl 150 mg PO QHS 09/22/17 Finasteride [Proscar] 5 mg PO DAILY 12/10/18 methotrexate sodium 2.5 mg tablet 20 mg PO JONES 01/29/19 ascorbic acid (vitamin C) 500 mg chewable tablet 500 mg PO DAILY tab 01/30/19 golimumab 12.5 mg/mL intravenous solution 135 mg IV [id number] ml 01/30/19 qgkgmxjx-kpaftmqk-yyrqn acid 400 mcg-vit K 20 mcg-lycop 300 mcg tablet 1 tab PO DAILY 04/06/20 Apixaban [Eliquis] 2.5 mg PO BID #60 tab 06/01/20 Cyanocobalamin (Vitamin B-12) [Vitamin B-12] 500 mcg PO DAILY 07/13/20 Topiramate [Topamax] 25 mg PO BID 07/13/20 Metoprolol Tartrate [Lopressor (beta santiago)] 12.5 mg PO BID 07/18/20 Mirtazapine [Remeron] 7.5 mg PO QHS 07/18/20 Polyethylene Glycol 3350 [Miralax] 17 gm PO DAILY 07/18/20 Senna/Docusate Sodium [Senokot-S] 2 tab PO BID 07/18/20 Tamsulosin HCl [Flomax] 0.4 mg PO DAILY@1730 07/18/20 Acetaminophen [Tylenol] 1,000 mg PO Q6H PRN PRN 08/02/20 Baclofen [Lioresal] 10 mg PO TID 08/02/20 Bisacodyl [Dulcolax] 10 mg PO DAILY PRN PRN 08/02/20 Folic Acid 1.5 mg PO DAILY 08/02/20 Magnesium Hydroxide [Milk Of Magnesia] 30 ml PO DAILY PRN PRN 08/02/20 Menthol/Lanolin/Calamine/Znox [Calmoseptine Ointment] 1 applic TOPICAL BID 08/02/20 Nystatin Powder [Mycostatin Powder] 1 applic TOPICAL BID 08/02/20 Potassium Chloride Oral Tablet [K-Dur] 10 meq PO DAILY 08/02/20 Amiodarone HCl [Cordarone] 200 mg PO BID tab 08/10/20 Aspirin [Aspirin, Baby] 81 mg PO DAILY@0800 #0 08/10/20 Atorvastatin Calcium [Lipitor] 40 mg PO QHS tab 08/10/20 Cephalexin [Keflex] 500 mg PO Q8 cap 08/10/20 Clopidogrel Bisulfate [Plavix] 75 mg PO DAILY tab 08/10/20 Ensure Enlive 120 ml PO 4X/DAY liquid 08/10/20 Oxycodone [Oxyir] 15 mg PO Q6H PRN 3 Days #12 tab 08/10/20 Prednisone 1 tab PO DAILY #30 tab 08/10/20
--- NOTE | 2020-08-10 10:36 | STRESSREP_ITS ---
Stress Test Report Pharmacologic myocardial perfusion stress test. Indication: [82-year-old patient, with history of CAD, has history of a STEMI/inferior AL in December 2019, status post PCI and RCA-stent in December 2019 Presented with syncopal episode, cardiac markers were negative and CT chest showed no evidence of pulmonary medicine.] No symptoms of chest pain reported during this admission. This patient has multiple medical comorbidities, with hyperlipidemia, benign essential hypertension, history of recurrent deep vein thrombosis and a prior history of pulmonary embolism. Stress protocol: Resting EKG demonstrates. Normal sinus rhythm. With age indeterminant old inferior AL. 0.4 mg of regadenoson was infused per usual protocol followed by rapid intravenous saline flush injection continuous EKG monitoring was performed. The maximum heart rate attained was [] bpm which was []% of maximum predicted heart . Stress EKG showed[, no significant change from the resting EKG, with maximum heart rate of 107bpm. Arrhythmia: No arrhythmia demonstrated Symptoms: Patient had no symptoms of chest pain Blood pressure at rest: [132/62 blood pressure at the end of stress: 124/62] Myocardial perfusion protocol. [12 mCi ]of Technetium 99m Sestamibi was injected at rest. [ 0.4 mg ]of Regadenoson was infused per usual protocol peak infusion[34 mCi ]of Technetium 99m sestamibi was injected. Stress images were obtained stress and rest images were reconstructed and compared in the short axis vertical and horizontal long axis. Gated images were also obtained Perfusion SPECT analysis: Review of the images demonstrate normal uptake of sestamibi at rest, post stress images demonstrate similar uptake of sestamibi to the resting images, homogeneous tracer uptake With no evidence of reversible myocardial ischemia. Reduced tracer uptake in the inferior myocardium consistent with prior inferior AL. Gated SPECT analysis: The gated ejection fraction is [ 88 %]. Wall motion showed hyperdynamic left ventricle. Conclusion: Negative Lexiscan sestamibi myocardial perfusion study for reversible myocardial ischemia Hyperdynamic left ventricle. Patient has no symptoms to report, in particular no chest pain Patient will be evaluated further with event monitor as an outpatient. Mary Kate Kerr MD,FACC,[facility]
--- NOTE | 2020-08-10 10:56 | CASEMGMT ---
SW spoke w/Lima in TCU, pt can return when ready, does not need a new precert prior to return. Pt does not need a COVID test prior to return, but will have to be quarantined again for 14 days once he returns. As per physician, pt is ready today. SW spoke w/pt, he is agreeable to return to TCU today. He would like to see his daughter before going over, gave SW permission to call daughter. SW called daughter Melanie, let her know that pt will return to TCU today, and that pt will be quarantined again when he returns, asked if she can visit pt prior to discharge. Daughter will come visit now. SW let pt know. [facility] faxed all discharge instructions to TCU, bedside RN aware pt is discharged to TCU today. No further needs, pt to TCU today. CALIN Estrada
--- NOTE | 2020-08-10 11:03 | NURSING ---
attempted to call TCU for pt transfer. Went to voicemail, will try again.
--- NOTE | 2020-08-10 11:17 | NURSING ---
Attempted to call TCU for report for pt transfer. Talked to Joyce who will call back for report.
--- NOTE | 2020-08-10 12:33 | NURSING ---
Called TCU to give report. Transferred to another line which just rang. Will retry later.
--- NOTE | 2020-08-10 13:55 | NURSING ---
Report given to nurse Cook after calling TCU again.
== END 2020-08-10 14:21 | disposition skilled nursing facility (03) | DRG 246 ==
LOC: ED 20:11 → MS3 20:40 → ICU 08-05 09:08 → PCU 08-07 16:06
PROVIDERS: Internal Medicine; Internal Medicine Cardiovascular Disease; Admitting Provider Hospitalist; Emergency Provider Emergency Medicine; PCP Family Medicine
DX: I21.4 Non-ST elevation (NSTEMI) myocardial infarction (principal); E43 Unspecified severe protein-calorie malnutrition; N30.00 Acute cystitis without hematuria; I47.1 Supraventricular tachycardia; Z87.891 Personal history of nicotine dependence; M10.9 Gout, unspecified; M06.4 Inflammatory polyarthropathy; I48.0 Paroxysmal atrial fibrillation; Z79.02 Long term (current) use of antithrombotics/antiplatelets; Z79.899 Other long term (current) drug therapy; N40.0 Benign prostatic hyperplasia without lower urinary tract symptoms; G89.4 Chronic pain syndrome; K21.9 Gastro-esophageal reflux disease without esophagitis; B96.4 Proteus (mirabilis) (morganii) as the cause of diseases classified elsewhere; Z68.22 Body mass index [BMI] 22.0-22.9, adult; R53.81 Other malaise; I25.10 Atherosclerotic heart disease of native coronary artery without angina pectoris
CPT/HCPCS: 36415; 71045; 73110; 80048; 80053; 80061; 80076; 81001; 83605; 83735; 84443; 84484; 84550; 85025; 85027; 85610; 85652; 85730; 86140; 87077; 87086; 87088; 87186; 87426; 92928; 93005; 93306; 93454; 97110; 97162; 97166; 97530; 97535; 99152; 99153; 99285; J7030; J7040; Q9957; Q9967; A4216; C1725; C1769; C1874; C1887; C1894; C8929; C9600; J0153; J8610

== ENCOUNTER 2020-08-10 14:21 | Inpatient (IN) | payer MEDICARE, SELFPAY ==
[2020-08-05 10:17] VITALS: BMI 22.8
[2020-08-10 14:25] VITALS: BP 102/55; PULSE 68; RESP 16; TEMP 36.8; O2SAT 100; BMI 22.1
[2020-08-10 15:39] VITALS: PULSE 68; RESP 16; O2SAT 100
[2020-08-10] MEDS: Amiodarone 200 MG Tablet PO (18:18)
[2020-08-10] MEDS: Hydroxychloroquine 200 MG Tablet PO (18:18)
[2020-08-10] MEDS: APIXABAN 2.5 MG TABLET PO (18:18)
[2020-08-10 18:19] VITALS: BP 117/62; PULSE 73
[2020-08-10] MEDS: Metoprolol Tartrate 25 MG Tablet 12.5 MG PO (18:19)
[2020-08-10] MEDS: Tamsulosin HCl 0.4 MG Capsule PO (18:19)
[2020-08-10] MEDS: Senna/Docusate Sodium 1 Tablet 2 TABLET PO (18:22)
[2020-08-10] MEDS: Topiramate 25 MG Tablet PO (18:27)
[2020-08-10] MEDS: oxyCODONE 5 MG Tablet 15 MG PO (18:32)
[2020-08-10] MEDS: Menthol/Lanolin/Calamine/Znox 113 GM Tube 1 APPLIC TOPICAL (18:35)
[2020-08-10] MEDS: Nystatin Powder 15gm Bottle 1 APPLIC TOPICAL (18:35)
[2020-08-10 18:38] VITALS: BP 117/62; PULSE 73
--- NOTE | 2020-08-10 19:16 | HP.PCM_ITS ---
Problem List (1) Left wrist pain Status: Chronic (2) Osteoarthritis of left knee Status: Chronic (3) PSVT (paroxysmal supraventricular tachycardia) Status: Acute (4) Debility Status: Acute (5) Lumbar spinal stenosis Status: Chronic (6) Atrial fibrillation with rapid ventricular response Status: Chronic (7) Muscle spasm Status: Chronic (8) GERD (gastroesophageal reflux disease) Status: Chronic (9) Rheumatoid arthritis Status: Chronic (10) Insomnia Status: Chronic (11) Right groin pain Status: Chronic (12) Appetite loss Status: Chronic (13) Fever Status: Acute (14) Inflammatory arthritis Status: Chronic (15) NSTEMI (non-ST elevated myocardial infarction) Status: Acute History of Present Illness Date of Admission: 08/10/20 Chief Complaint: Here for rehabilitation, strengthening, prior to discharge home alone. 08/02/2020 The patient is a 79 year old Male with below past medical history, TCU resident, transferred to [facility] Emergency Department with fever 102.6. 08/02/2020 X-ray left wrist moderate arthritis, scapholunate ligament tear. 08/02/2020 Chest X-ray negative. TCU resident, lumbar laminectomy 05/07/20. WBC 14.2, ESR elevated, CRP elevated. 08/02/2020 Admit to Hospital. Acute inflammatory arthritis, likely gout. Treat with steroids. 08/03/2020 Orthopedics recommended Rheumatology evaluation. Left wrist immobilizer for left wrist pain. 08/03/2020 Hydroxychloroquine, methotrexate for rheumatoid arthritis. 08/04/2020 Continue steroid therapy. 08/04/2020 Blood pressure 70 systolic, resuscitated with IV fluids. Cardiology consulted for SVT, responded to combination of adenosine IV, Diltiazem IV, Amiodarone IV. Elevated troponin consistent with NSTEMI, recommend Echo. 08/04/2020 Echo mild segmental systolic dysfunction. EF 50%. Mild aortic stenosis. Right ventricular systolic pressure 38mm HG. Diastolic dysfunction. 08/05/2020 Amiodarone for paroxysmal supraventricular tachycardia. Heart cath recommended, stop Eliquis, start Heparin drip for NSTEMI. Rocephin IV for urinary tract infection. 08/06/2020 Proteus Mirabilis urinary tract infection treated with Keflex. 08/07/2020 Amiodarone 200MG BID for PSVT. Heart catheterization, status post stent x 1. 08/10/2020 Admit to TCU with debility, here for rehabilitation, strengthening, prior to discharge home alone. Past Medical History Past Medical History (Chronic Problems): Chronic Problems (Last Updated 08/06/20 @ 15:34 by Kim Kraus) Left wrist pain (Chronic) Osteoarthritis of left knee (Chronic) Atherosclerotic heart disease of [place] coronary artery without angina pectoris (Chronic) History of coronary artery stent placement (Chronic 08/06/20) Successful PCI on OM2 with GAGE. Unsuccessful PCI of [employer] of LAD per Dr. Garcia on 08/06/2020 Atrial fibrillation (Chronic) Lumbar spinal stenosis (Chronic) Atrial fibrillation with rapid ventricular response (Chronic) Muscle spasm (Chronic) GERD (gastroesophageal reflux disease) (Chronic) Rheumatoid arthritis (Chronic) Insomnia (Chronic) BPH (benign prostatic hyperplasia) (Chronic) Right groin pain (Chronic) Appetite loss (Chronic) Inflammatory arthritis (Chronic) Abnormal EKG (Chronic) Abnormal echocardiogram (Chronic) Left ventricular hypokinesis (Chronic) Leg pain, bilateral (Chronic) Edema (Chronic) Medical History: Medical History (Last Updated 08/06/20 @ 15:34 by Kim Kraus) Atherosclerotic heart disease of [place] coronary artery without angina pectoris (Chronic) I25.10 Abnormal EKG (Chronic) R94.31 Abnormal echocardiogram (Chronic) R93.1 Left ventricular hypokinesis (Chronic) I51.89 Leg pain, bilateral (Chronic) M79.604, M79.605 Edema (Chronic) R60.9 H/o finger stitches Left index H/o three feet of intestines removed Hemorrhoids K64.9 PAT (paroxysmal atrial tachycardia) I47.1 SVT (supraventricular tachycardia) I47.1 Back pain M54.9 Rheumatoid arthritis M06.9 Allergies No Known Allergies Allergy (Verified 08/02/20 17:43) Home Medications: Ambulatory Orders Medication Instructions Recorded Hydroxychloroquine [Plaquenil] 200 mg PO BIDCM 10/09/14 Trazodone HCl 150 mg PO QHS 09/22/17 Finasteride [Proscar] 5 mg PO DAILY 12/10/18 methotrexate sodium 2.5 mg tablet 20 mg PO JONES 01/29/19 ascorbic acid (vitamin C) 500 mg 500 mg PO DAILY tab 01/30/19 chewable tablet golimumab 12.5 mg/mL intravenous 135 mg IV [id number] ml 01/30/19 solution bvelysuf-tjbyotki-ozmgb acid 400 1 tab PO DAILY 04/06/20 mcg-vit K 20 mcg-lycop 300 mcg tablet Apixaban [Eliquis] 2.5 mg PO BID #60 tab 06/01/20 Cyanocobalamin (Vitamin B-12) 500 mcg PO DAILY 07/13/20 [Vitamin B-12] Topiramate [Topamax] 25 mg PO BID 07/13/20 Metoprolol Tartrate [Lopressor 12.5 mg PO BID 07/18/20 (beta santiago)] Mirtazapine [Remeron] 7.5 mg PO QHS 07/18/20 Polyethylene Glycol 3350 [Miralax] 17 gm PO DAILY 07/18/20 Senna/Docusate Sodium [Senokot-S] 2 tab PO BID 07/18/20 Tamsulosin HCl [Flomax] 0.4 mg PO DAILY@1730 07/18/20 Acetaminophen [Tylenol] 1,000 mg PO Q6H PRN PRN 08/02/20 Baclofen [Lioresal] 10 mg PO TID 08/02/20 Bisacodyl [Dulcolax] 10 mg PO DAILY PRN PRN 08/02/20 Folic Acid 1.5 mg PO DAILY 08/02/20 Magnesium Hydroxide [Milk Of 30 ml PO DAILY PRN PRN 08/02/20 Magnesia] Menthol/Lanolin/Calamine/Znox 1 applic TOPICAL BID 08/02/20 [Calmoseptine Ointment] Nystatin Powder [Mycostatin Powder] 1 applic TOPICAL BID 08/02/20 Potassium Chloride Oral Tablet 10 meq PO DAILY 08/02/20 [K-Dur] Amiodarone HCl [Cordarone] 200 mg PO BID 08/10/20 Aspirin [Aspirin, Baby] 81 mg PO DAILY@0800 #0 08/10/20 Atorvastatin Calcium [Lipitor] 40 mg PO QHS 08/10/20 Cephalexin [Keflex] 500 mg PO Q8 08/10/20 Clopidogrel Bisulfate [Plavix] 75 mg PO DAILY 08/10/20 Ensure Enlive 120 ml PO 4X/DAY 08/10/20 Oxycodone [Oxyir] 15 mg PO Q6H PRN 3 Days #12 tab 08/10/20 Prednisone 1 tab PO DAILY 08/10/20 Surgical History: Surgical History (Last Updated 08/06/20 @ 15:33 by Kim Kraus) History of coronary artery stent placement (Chronic) Onset Date: 08/06/20 Z95.5 Successful PCI on OM2 with GAGE. Unsuccessful PCI of [employer] of LAD per Dr. Garcia on 08/06/2020 H/O colonoscopy Z98.890 H/O umbilical hernia repair Z98.890, Z87.19 S/P appendectomy Z90.49 S/P cataract surgery Z98.49 Bilateral S/P hemorrhoidectomy Z98.890, Z87.19 S/P inguinal hernia repair Z98.890, Z87.19 bilateral S/P laparoscopic cholecystectomy Z90.49 S/P left colectomy Z90.49 S/P rotator cuff repair Z98.890 Bilateral S/P vasectomy Z98.52 Surgical History: adenoidectomy, appendectomy, cataract - Bilateral., cholecystectomy - Laparoscopic., colectomy - Left., herniorrhaphy - Umbilical, Inguinal., rotator cuff repair - Bilateral., - - Hemorrhoidectomy, Vasectomy. Psychiatric History: No pertinent psych hx Lives: Alone Smoking Status: Former smoker Tobacco Use: Non-smoker Alcohol: None Drugs: None - *Family History Maternal Family History: Family History (Last Reviewed 08/07/20 @ 12:31 by MARTIN Staley) Father CVA (cerebral vascular accident) Brother CAD (coronary artery disease) Mother CVA (cerebral vascular accident) Grandfather Cancer History Items: No pertinent history Paternal Family History: Family History (Last Reviewed 08/07/20 @ 12:31 by MARTIN Staley) Father CVA (cerebral vascular accident) Brother CAD (coronary artery disease) Mother CVA (cerebral vascular accident) Grandfather Cancer History Items: No pertinent history Review of Systems Constitutional: Denies: Chills, Fever, Weight Change HEENT: Denies: Head Aches, Sinus Congestion, Sinus Drainage Cardiovascular: Denies: Chest Pain, Palpitations Respiratory: Denies: Cough, Shortness of breath at rest, Sputum production Gastrointestinal: Denies: Abdominal Pain, Nausea, Vomiting Genitourinary: Denies: Dysuria Musculoskeletal: Denies: Joint Pain, Joint Tenderness Skin: Denies: Rash, Wounds Neurological: Denies: Numbness, Tingling, Focal weakness Psychiatric: Denies: Anxiety, Depression, Homicidal Ideations, Suicidal Ideations Hematologic/ Lymphatic: Denies: Easy Bruising, Easy Bleeding VTE Information - Inpt Only VTE Present on Admission: No VTE Mechan Device Prophylaxis: Knee High BIA Hose VTE Pharm Prophylaxis ordered?: No Reason prophylaxis not ordered:: Treatment Not Indicated Patient Problems: Active and Suspected Problems (Last Updated 08/06/20 @ 15:34 by Kim Kraus) PSVT (paroxysmal supraventricular tachycardia) (Acute) Debility (Acute) Fever (Acute) NSTEMI (non-ST elevated myocardial infarction) (Acute) - Physical Exam Vitals/I&O's: Vital Signs Temp Pulse Resp BP Pulse Ox 98.3 F 73 16 117/62 100 08/10/20 14:25 08/10/20 18:38 08/10/20 15:39 08/10/20 18:38 08/10/20 15:39 Oxygen Delivery Method Room Air Weight: 56.699 kg Body Mass Index (BMI) 22.1 General: Alert, Oriented x3, Cooperative HEENT: Atraumatic, PERRLA, EOMI, Normocephalic Neck: Supple, No JVD, Negative Carotid Bruits Lungs: Clear to auscultation, Normal air movement Cardiovascular: Regular rate, No murmurs Abdomen: Bowel Sounds Present, Soft, Non Tender Extremities: No edema, Capillary Refill Less than 3 Seconds, - - Left upper extremity wrist splint. Skin: No rashes, No breakdown Musculoskeletal: No Tenderness to Palpation of Joints or Extremities Neurological: Cranial nerves II-XII grossly intact Psych/Mental Status: Normal Affect, Appropriate Current Medications Acetaminophen (Acetaminophen 500 Mg Tablet) 1,000 mg PO Q6H PRN PRN PRN Reason: 1-10 pain/fever Amiodarone HCl (Amiodarone 200 Mg Tablet) 200 mg PO BID [facility] Last Admin: 08/10/20 18:18 Dose: 200 mg Documented by: Apixaban (Apixaban 2.5 Mg Tablet) 2.5 mg PO BID [facility] Last Admin: 08/10/20 18:18 Dose: 2.5 mg Documented by: Ascorbic Acid (Ascorbic Acid 500 Mg Tablet) [facility] Aspirin (Aspirin 81 Mg Tab.Chew) 81 mg PO DAILY@0800 [facility] Atorvastatin Calcium (Atorvastatin Calcium 40 Mg Tablet) 40 mg PO QHS [facility] Baclofen (Baclofen 10 Mg Tablet) 10 mg PO TID [facility] Bisacodyl (Bisacodyl 5 Mg Tablet) 10 mg PO DAILY PRN PRN PRN Reason: Constipation Calamine/Phenol (Menthol/Lanolin/Calamine/Znox 113 Gm Tube) 1 applic TOPICAL BID [facility]; Protocol Last Admin: 08/10/20 18:35 Dose: 1 applic Documented by: Cephalexin (Cephalexin 500 Mg Capsule) 500 mg PO Q8 [facility] Stop: 08/12/20 22:00 Clopidogrel Bisulfate (Clopidogrel Bisulfate 75 Mg Tablet) 75 mg PO DAILY [facility] Cyanocobalamin (Cyanocobalamin 500 Mcg Tablet) 500 mcg PO DAILY [facility] Finasteride (Finasteride 5 Mg Tablet) 5 mg PO DAILY [facility] Folic Acid (Folic Acid 1 Mg Tablet) [facility] Hydroxychloroquine Sulfate (Hydroxychloroquine 200 Mg Tablet) [facility] Last Admin: 08/10/20 18:18 Dose: 200 mg Documented by: Magnesium Hydroxide (Magnesium Hydroxide 30 Ml Udc) 30 ml PO DAILY PRN PRN PRN Reason: Constipation Methotrexate (Methotrexate 2.5 Mg Tablet) 20 mg PO Jones@0600 [facility] Metoprolol Tartrate (Metoprolol Tartrate 25 Mg Tablet) 12.5 mg PO BID [facility] Last Admin: 08/10/20 18:19 Dose: 12.5 mg Documented by: Mirtazapine (Mirtazapine 15 Mg Tablet) 7.5 mg PO QHS [facility] Multivitamins (Multivitamins,Therapeutic Tablet) 1 tablet PO DAILY@0800 [facility] Nutritional Formula (Lactose Free) (Ensure Enlive 120 Ml Liquid) 120 ml PO 4X/DAY [facility] Last Admin: 08/10/20 18:16 Dose: 120 ml Documented by: Nystatin (Nystatin Powder 15gm Bottle) 1 applic TOPICAL BID [facility]; Protocol Last Admin: 08/10/20 18:35 Dose: 1 applic Documented by: Oxycodone HCl (Oxycodone 5 Mg Tablet) 15 mg PO Q6H PRN PRN Reason: Pain 1-10 Last Admin: 08/10/20 18:32 Dose: 15 mg Documented by: Polyethylene Glycol (Polyethylene Glycol 3350 17 Gm Packet) 17 gm PO DAILY [facility] Potassium Chloride (Potassium Chloride Oral Tablet 10 Meq) 10 meq [facility] Prednisone (Prednisone 20 Mg Tablet) [facility] Stop: 08/13/20 08:01 Prednisone (Prednisone 10 Mg Tablet) [facility] Stop: 08/16/20 08:01 Prednisone (Prednisone 20 Mg Tablet) [facility] Stop: 08/19/20 08:01 Prednisone (Prednisone 10 Mg Tablet) [facility] Stop: 08/22/20 08:01 Senna/Docusate Sodium (Senna/Docusate Sodium 1 Tablet) 2 tablet PO BID [facility] Last Admin: 08/10/20 18:22 Dose: 2 tablet Documented by: Tamsulosin HCl (Tamsulosin Hcl 0.4 Mg Capsule) 0.4 mg PO 1800 [facility] Last Admin: 08/10/20 18:19 Dose: 0.4 mg Documented by: Topiramate (Topiramate 25 Mg Tablet) 25 mg PO BID [facility] Last Admin: 08/10/20 18:27 Dose: 25 mg Documented by: Trazodone HCl (Trazodone 100 Mg Tablet) 150 mg PO QHS [facility] Tuberculin PPD (Tuberculin,Purif.Prot.Deriv. 50 Tu/Ml Vial) 5 tu ID [id number] Stop: 08/18/20 10:01 Tuberculin PPD (Tuberculin,Purif.Prot.Deriv. 50 Tu/Ml Vial) 5 tu ID [id number] Stop: 08/11/20 10:01 Assessment/Plan All Active Problems (Last Updated 08/06/20 @ 15:34 by Kim Kraus) Left groin pain (Acute) PSVT (paroxysmal supraventricular tachycardia) (Acute) Debility (Acute) SVT (supraventricular tachycardia) (Acute) Scrotal pain (Acute) Right hip joint effusion (Acute) Fever (Acute) NSTEMI (non-ST elevated myocardial infarction) (Acute) Fever (Acute) Recurrent umbilical hernia (Resolved) 79 year old male with below past medical history hospitalized for inflammatory arthritis, complicated by PSVT, NSTEMI, coronary artery disease requiring heart catheterization with stent, P. Mirabilis urinary tract infection, admitted to TCU with debility, here for rehabilitation, strengthening, prior to discharge home alone. * Debility - PT/OT. * Pain - Tylenol 1000MG Q6H PRN pain (1-3), Oxycodone 15MG Q6H PRN pain (4-10). * Bowel - Miralax 17GM daily, Senna/colace 2 tablets BID, MOM 30ML daily PRN, Dulcolax 10MG PO daily PRN. * Adult immunization - Administer Prevnar 13, Pneumovax 23, Fluzone, COVID19 vaccine as appropriate. * DVT prophylaxis - Not necessary, already on Eliquis. * PSVT - Metoprolol 12.5MG BID, Amiodarone 200MG BID. * Atrial Fibrillation - Metoprolol 12.5MG BID, Amiodarone 200MG BID, Eliquis 2.5MG BID. * Vitamin C deficiency - Vitamin C 500MG BID. * Coronary artery disease status post stent - Metoprolol 12.5MG BID, Eliquis 2.5MG BID, Plavix 75MG daily, Aspirin 81MG daily. * Hyperlipidemia - Atorvastatin 40MG QHS. * Muscle spasm - Baclofen 10MG PO TID. * P. Mirabilis UTI - Keflex 500MG Q8H thru 08/12/2020. * Vitamin B12 deficiency - B12 500MCG daily. * Nutrition - Ensure Enlive 120ML 4x/day, MVI daily. * BPH - Finasteride 5MG daily, Tamsulosin 0.4MG daily. * Rheumatoid arthritis - Plaquenil 200MG BID, MTX 20MG per week, Folic acid 1.5MG daily, Prednisone taper. * Skin irritation - Calmoseptine topical BID. * Appetite loss - Mirtazapine 7.5MG QHS. * Tinea Corporis - Nystatin powder topical BID. * Hypokalemia - 10MEQ daily. * Osteoarthritis left knee - After informed consent, I injected left knee with Kenalog 40MG, Lidocaine 1% 1ML using suprapatellar approach, no immediate complications. * Migraine - Topamax 25MG BID. * Insomnia - Trazodone 150MG QHS.
[2020-08-10] MEDS: Baclofen 10 MG Tablet PO (21:50)
[2020-08-10] MEDS: Atorvastatin Calcium 40 MG Tablet PO (21:50)
[2020-08-10] MEDS: Mirtazapine 15 MG Tablet 7.5 MG PO (21:50)
[2020-08-10] MEDS: Cephalexin 500 MG Capsule PO (21:50)
[2020-08-10] MEDS: traZODone 100 MG Tablet 150 MG PO (22:53)
[2020-08-11] MEDS: Polyethylene Glycol 3350 17 GM PACKET PO (05:13)
[2020-08-11] MEDS: Menthol/Lanolin/Calamine/Znox 113 GM Tube 1 APPLIC TOPICAL ×2 (05:13→18:29)
[2020-08-11] MEDS: Senna/Docusate Sodium 1 Tablet 2 TABLET PO ×2 (05:25→18:34)
[2020-08-11] MEDS: Baclofen 10 MG Tablet PO ×3 (05:26→22:53)
[2020-08-11] MEDS: Clopidogrel Bisulfate 75 MG Tablet PO (05:26)
[2020-08-11] MEDS: Cephalexin 500 MG Capsule PO ×3 (05:26→22:53)
[2020-08-11] MEDS: Cyanocobalamin 500 MCG Tablet PO (05:26)
[2020-08-11] MEDS: APIXABAN 2.5 MG TABLET PO ×2 (05:26→18:32)
[2020-08-11] MEDS: Finasteride 5 MG Tablet PO (05:26)
[2020-08-11] MEDS: Amiodarone 200 MG Tablet PO ×2 (05:26→18:32)
[2020-08-11 05:27] VITALS: BP 112/63; PULSE 68
[2020-08-11] MEDS: Metoprolol Tartrate 25 MG Tablet 12.5 MG PO ×2 (05:27→18:35)
[2020-08-11] MEDS: Nystatin Powder 15gm Bottle 1 APPLIC TOPICAL ×2 (05:29→18:34)
[2020-08-11] MEDS: Topiramate 25 MG Tablet PO ×2 (05:30→18:34)
[2020-08-11 05:49] LABS: Absolute Lymphocyte Count 0.93 X10^3/uL (0.83-4.51); Absolute Neutrophil Count 5.8 X10^3/uL (2.0-7.7); Basophil# 0.01 X10^3/uL; Basophil% 0.1 % (0-1); Hematocrit 34.8 % (40-54); Lymphocyte # 0.93 X10^3/ul (4.0); Mean Corp Hgb Conc 31.6 g/dL (32-36); Mean Corpuscular Hgb 29.6 pg (27.0-32.0); Mean Corpuscular Volume 93.8 fL (80-94); Mean Platelet Vol. 9.9 fl (6.2-12.0); Monocyte# 0.37 X10^3/uL; Monocyte% 5.2 % (0-10); NRBC Flagged by Analyzer 0 % (0-5); Neutrophil % 81.3 % (47-70); Platelet Count 315 K/mm3 (150-450); RBC Distribution Width SD 57.6 fl (35.1-43.9); Red Blood Count 3.71 M/mm3 (4.6-6.2); White Blood Count 7.1 K/mm3 (4.4-11.0)
[2020-08-11 06:00] LABS: Anion Gap 3 (5-15); BUN 19 mg/dL (7-18); BUN/Creat Ratio 24.4 RATIO (10-20); Calcium,Total 8.3 mg/dL (8.5-10.1); Chloride 109 mmol/L (98-107); Creatinine, Serum 0.78 mg/dL (0.70-1.30); EST Glomerular Filtration Rate 103 mL/min (>60); Est Glom Filt Rate - Afr Amer 124 mL/min (>60); Estimated Creatinine Clearance 49.61 ml/min; Glucose 110 mg/dL (74-106); Potassium 3.7 mmol/L (3.5-5.1); Sodium Level 140 mmol/L (136-145)
[2020-08-11] MEDS: Aspirin 81 MG TAB.CHEW PO (09:19)
[2020-08-11] MEDS: Folic Acid 1 MG Tablet 1.5 MG PO (09:20)
[2020-08-11] MEDS: Potassium Chloride Oral Tablet 10 MEQ PO (09:21)
[2020-08-11] MEDS: Hydroxychloroquine 200 MG Tablet PO ×2 (09:23→18:31)
[2020-08-11] MEDS: Multivitamins,Therapeutic Tablet 1 TABLET PO (09:23)
[2020-08-11] MEDS: Ascorbic Acid 500 MG Tablet PO (09:24)
[2020-08-11] MEDS: predniSONE 20 MG Tablet PO (09:26)
--- NOTE | 2020-08-11 13:17 | NT.THERAPY_ITS ---
Nutrition Therapy Report - History Nutrition Services has been consulted to:: Manage nutrient details of diet order Current diet / nutrition support order:: Regular. Ensure Enlive 120 ml 4x/day - Anthropometric Measurements Height:: 5 ft 3 in Weight:: 54.839 kg Body Mass Index (BMI):: 21.4 - Relevant Labs Relevant Labs:: RBC 3.71 M/mm3 (4.6-6.2) L 08/11/20 05:05 Hgb 11.0 g/dL (13.0-16.5) L 08/11/20 05:05 Hct 34.8 % (40-54) L 08/11/20 05:05 MCHC 31.6 g/dL (32-36) L 08/11/20 05:05 RDW Std Deviation 57.6 fl (35.1-43.9) H 08/11/20 05:05 RDW Coeff of Jaciel 17.0 % (11.6-14.6) H 08/11/20 05:05 Neut % (Auto) 81.3 % (47-70) H 08/11/20 05:05 Lymph % (Auto) 13.0 % (19-41) L 08/11/20 05:05 Chloride 109 mmol/L (98-107) H 08/11/20 05:05 Anion Gap 3 (5-15) L 08/11/20 05:05 BUN 19 mg/dL (7-18) H 08/11/20 05:05 BUN/Creatinine Ratio 24.4 RATIO (10-20) H 08/11/20 05:05 Glucose 110 mg/dL (74-106) H 08/11/20 05:05 Calcium 8.3 mg/dL (8.5-10.1) L 08/11/20 05:05 - Assessment Food / Nutrition-Related History:: In house transfer- TCU sty 07/18-08/02, PCU prior to this TCU admin. Fair intake reported during previous TCU and PCU stays. Resident reports decreased PO intake & wt loss since laminectomy April 2020- UBW reported 140# prior to sx. Wt hx per EMR 07/20/20 126.7 lbs, 08/05 129 lbs- CBW 120.9 lbs-- unintentional wt loss 14% x 3 months (severe).States improved intake at b-fast meal this a.m. I'm trying some different foods- consumed >50% of meal. During PCU stay decreased PO intake d/t fatigue w/ menu- questioned if any menu items res prefers/would like us to send, res notes I cannot think of any now- agreeable to trial ensure pudding w/ lunch meal, if likes will continue to send. - Nutrition Diagnosis Problem / Etiology / Signs & Symptoms (PES):: Severe malnutrition in the context of acute illness/injury RT inadequate oral intake s/p laminectomy AEB unintentional wt loss 14% x 3 months, consuming <75% energy intake compared to e stimated energy needs. Evidence of Malnutrition Exists:: Yes Severe PCM:: Acute Illness - Nutrition Intervention Nutrition Prescription:: [id number] calories, 55-65 grams protein - Food / Nutrient Delivery Interventions Nutrition support ordered as / adjusted to:: Regular diet w/ Ensure Enlive at medpass; will provide ensure pudding w/ pt lunch. Nutrition education provided?: No - MNT Monitoring Further MNT monitoring and evaluation required?: Yes MNT Follow-up in:: 7-9 days
[2020-08-11 13:20] VITALS: BMI 21.4
[2020-08-11 13:42] VITALS: BP 88/55; PULSE 69; RESP 17; TEMP 37.3; O2SAT 96
--- NOTE | 2020-08-11 14:53 | PCM.PN.RX ---
<Erica Balbuena - Last Filed: 08/11/20 14:53> Progress Note - Pharmacy Subjective: TCU Admission Objective: Allergies No Known Allergies Allergy (Verified 08/02/20 17:43) Current Medications Generic Name Dose Route Start Last Admin Trade Name Claire PRN Reason Stop Dose Admin Acetaminophen 1,000 mg 08/10/20 14:41 Acetaminophen 500 Mg Tablet PO Q6H PRN PRN Pain Score 1-3 Amiodarone HCl 200 mg 08/10/20 18:00 08/11/20 05:26 Amiodarone 200 Mg Tablet PO 200 mg BID PATRICE Administration Apixaban 2.5 mg 08/10/20 18:00 08/11/20 05:26 Apixaban 2.5 Mg Tablet PO 2.5 mg BID PATRICE Administration Ascorbic Acid 500 mg 08/11/20 08:00 08/11/20 09:24 Ascorbic Acid 500 Mg Tablet PO 500 mg DAILYCM PATRICE Administration Aspirin 81 mg 08/11/20 08:00 08/11/20 09:19 Aspirin 81 Mg Tab.Chew PO 81 mg DAILY@0800 PATRICE Administration Atorvastatin Calcium 40 mg 08/10/20 22:00 08/10/20 21:50 Atorvastatin Calcium 40 Mg Tablet PO 40 mg QHS PATRICE Administration Baclofen 10 mg 08/10/20 22:00 08/11/20 05:26 Baclofen 10 Mg Tablet PO 10 mg TID PATRICE Administration Bisacodyl 10 mg 08/10/20 14:41 Bisacodyl 5 Mg Tablet PO DAILY PRN PRN Constipation Calamine/Phenol 1 applic 08/10/20 18:00 08/11/20 05:13 Menthol/Lanolin/Calamine/Znox 113 Gm Tube TOPICAL 1 applic BID PATRICE Administration Protocol Cephalexin 500 mg 08/10/20 22:00 08/11/20 05:26 Cephalexin 500 Mg Capsule PO 08/12/20 22:00 500 mg Q8 PATRICE Administration Clopidogrel Bisulfate 75 mg 08/11/20 06:00 08/11/20 05:26 Clopidogrel Bisulfate 75 Mg Tablet PO 75 mg DAILY PATRICE Administration Cyanocobalamin 500 mcg 08/11/20 06:00 08/11/20 05:26 Cyanocobalamin 500 Mcg Tablet PO 500 mcg DAILY PATRICE Administration Finasteride 5 mg 08/11/20 06:00 08/11/20 05:26 Finasteride 5 Mg Tablet PO 5 mg DAILY [facility] Administration Folic Acid 1.5 mg 08/11/20 08:00 08/11/20 09:20 Folic Acid 1 Mg Tablet PO 1.5 mg DAILYCOX MONETT Administration Hydroxychloroquine Sulfate 200 mg 08/10/20 17:00 08/11/20 09:23 Hydroxychloroquine 200 Mg Tablet PO 200 mg BIDCOX MONETT Administration Magnesium Hydroxide 30 ml 08/10/20 14:42 Magnesium Hydroxide 30 Ml Udc PO DAILY PRN PRN Constipation Methotrexate 20 mg 08/16/20 06:00 Methotrexate 2.5 Mg Tablet PO Bui@0600 [facility] Metoprolol Tartrate 12.5 mg 08/10/20 18:00 08/11/20 05:27 Metoprolol Tartrate 25 Mg Tablet PO 12.5 mg BID [facility] Administration Mirtazapine 7.5 mg 08/10/20 22:00 08/10/20 21:50 Mirtazapine 15 Mg Tablet PO 7.5 mg QHS [facility] Administration Multivitamins 1 tablet 08/11/20 08:00 08/11/20 09:23 Multivitamins,Therapeutic Tablet PO 1 tablet DAILY@0800 [facility] Administration Nutritional Formula (Lactose Free) 120 ml 08/10/20 17:00 08/11/20 12:54 Ensure Enlive 120 Ml Liquid PO 120 ml 4X/DAY [facility] Administration Nystatin 1 applic 08/10/20 18:00 08/11/20 05:29 Nystatin Powder 15gm Bottle TOPICAL 1 applic BID [facility] Administration Protocol Oxycodone HCl 15 mg 08/10/20 14:42 08/10/20 18:32 Oxycodone 5 Mg Tablet PO 15 mg Q6H PRN Administration Pain Score 4-10 Polyethylene Glycol 17 gm 08/11/20 06:00 08/11/20 05:13 Polyethylene Glycol 3350 17 Gm Packet PO 17 gm DAILY [facility] Administration Potassium Chloride 10 meq 08/11/20 08:00 08/11/20 09:21 Potassium Chloride Oral Tablet 10 Meq PO 10 meq DAILYCOX MONETT Administration Prednisone 20 mg 08/11/20 08:00 08/11/20 09:26 Prednisone 20 Mg Tablet PO 08/13/20 08:01 20 mg DAILYCM [facility] Administration Prednisone 30 mg 08/14/20 08:00 Prednisone 10 Mg Tablet PO 08/16/20 08:01 DAILYCOX MONETT Prednisone 20 mg 08/17/20 08:00 Prednisone 20 Mg Tablet PO 08/19/20 08:01 DAILYCM [facility] Prednisone 10 mg 08/20/20 08:00 Prednisone 10 Mg Tablet PO 08/22/20 08:01 DAILYCM [facility] Senna/Docusate Sodium 2 tablet 08/10/20 18:00 08/11/20 05:25 Senna/Docusate Sodium 1 Tablet PO 2 tablet BID PATRICE Administration Tamsulosin HCl 0.4 mg 08/10/20 18:00 08/10/20 18:19 Tamsulosin Hcl 0.4 Mg Capsule PO 0.4 mg 1800 PATRICE Administration Topiramate 25 mg 08/10/20 18:00 08/11/20 05:30 Topiramate 25 Mg Tablet PO 25 mg BID PATRICE Administration Trazodone HCl 150 mg 08/10/20 22:00 08/10/20 22:53 Trazodone 100 Mg Tablet PO 150 mg QHS PATRICE Administration Tuberculin PPD 5 tu 08/18/20 10:00 Tuberculin,Purif.Prot.Deriv. 50 Tu/Ml Vial ID 08/18/20 10:01 X1 ONE Problem List (Last Updated 08/06/20 @ 15:34 by Kim Kraus) Left wrist pain (Chronic) Osteoarthritis of left knee (Chronic) PSVT (paroxysmal supraventricular tachycardia) (Acute) Debility (Acute) Lumbar spinal stenosis (Chronic) Atrial fibrillation with rapid ventricular response (Chronic) Muscle spasm (Chronic) GERD (gastroesophageal reflux disease) (Chronic) Rheumatoid arthritis (Chronic) Insomnia (Chronic) Right groin pain (Chronic) Appetite loss (Chronic) Fever (Acute) Inflammatory arthritis (Chronic) NSTEMI (non-ST elevated myocardial infarction) (Acute) Vital Signs Temp Pulse Resp BP Pulse Ox 99.1 F 69 17 88/55 L 96 08/11/20 13:42 08/11/20 13:42 08/11/20 13:42 08/11/20 13:42 08/11/20 13:42 Oxygen Delivery Method Room Air Weight: 54.839 kg Body Mass Index (BMI) 21.4 Sodium 140 mmol/L (136-145) 08/11/20 05:05 Potassium 3.7 mmol/L (3.5-5.1) 08/11/20 05:05 Chloride 109 mmol/L (98-107) H 08/11/20 05:05 Carbon Dioxide 28.0 mmol/L (21.0-32.0) 08/11/20 05:05 Anion Gap 3 (5-15) L 08/11/20 05:05 BUN 19 mg/dL (7-18) H 08/11/20 05:05 Creatinine 0.78 mg/dL (0.70-1.30) 08/11/20 05:05 Est GFR (MDRD) Af Amer 124 mL/min (>60) 08/11/20 05:05 Est GFR (MDRD) Non-Af 103 mL/min (>60) 08/11/20 05:05 BUN/Creatinine Ratio 24.4 RATIO (10-20) H 08/11/20 05:05 Glucose 110 mg/dL (74-106) H 08/11/20 05:05 Assessment/Plan: 1. Pain/muscle spasm: acetaminophen 1000mg PO Q6H PRN pain (1-3), oxycodone 15mg PO Q6H PRN pain (4-10), and baclofen 10mg PO TID. Please continue to monitor for increased pain, PRN usage, constipation, and respiratory depression. 2. P. mirabilis UTI: cephalexin 500mg PO Q8H thru 08/12/2020. Please continue to monitor for diarrhea, renal function, and S/S of infection. 3. Rheumatoid arthritis: prednisone taper thru 08/22/20, hydroxychloroquine 200mg PO BIDCM, methotrexate 20mg PO weekly and folic acid 1.5mg PO DAILYCM. Please continue to monitor blood sugars, insomnia, WBC, rash, and S/S of infection. *4. Atrial fibrillation/CAD s/p stent/PSVT: metoprolol tartrate 12.5mg PO BID, apixaban 2.5mg PO BID, amiodarone 200mg PO BID, clopidogrel 75mg PO daily and aspirin 81mg PO daily. Please continue to monitor HR (last 69 bpm), BP (last 88/55 mmHg), H/H, S/S of bleeding and potassium (last 3.7 mmol/L). Per discharge summary on PCU, cardiology would like aspirin to be continued for 1 month and then clopidogrel alone. Please consider adding a stop date of 4 weeks for aspirin. Thanks. 5. BPH: tamsulosin 0.4mg PO daily and finasteride 5mg PO daily. Please continue to monitor for reductions of S/S of BPH and BP. 6. Hyperlipidemia: atorvastatin 40mg PO QHS. Please continue to monitor for S/S of muscle pain and lipid panel. 7. Hypokalemia: potassium chloride 10mEq PO DAILYCM. Please continue to monitor potassium levels (last 3.7mmol/L). *8. Vitamin deficiencies/nutrition: ascorbic acid 500mg PO daily, cyanocobalamin 500mcg PO daily, MVI PO daily. Please consider ordering a Vitamin B12 level. Thanks. Please continue to monitor for S/S of vitamin deficiencies. Psychotropic Medications: 1. Appetite loss: mirtazapine 7.5mg PO QHS. GDR likely not appropriate. Patient with unintentional weight loss of 14% in 3 months per traffic routing engineer note. Please continue to monitor for changes in appetite and mental status. 2. Migraine: topiramate 25mg PO BID. Please continue to monitor for mental status changes, serum creatinine (last 0.78 mg/dL) and electrolytes. *3. Insomnia: trazodone 150mg PO QHS. Please consider GDR by 01/2021 if clinically appropriate. Thanks. Please continue to monitor for mental status changes, orthostatic hypotension and insomnia. Unnecessary Medications: None Bowel Regimen: Miralax 17gm PO daily, senna/docusate 2T PO BID, MOM 30mL PO daily PRN constipation, bisacodyl 10mg PO daily PRN constipation. Please continue to monitor for constipation and PRN usage. Date of Note:: 08/11/20 - Provider Comments Provider responsibility: Provider responsible to enter orders to implement recommendations <Yogesh Lebron Chi - Last Filed: 08/11/20 17:39> Progress Note - Pharmacy Subjective: [] Objective: Allergies No Known Allergies Allergy (Verified 08/02/20 17:43) Current Medications Generic Name Dose Route Start Last Admin Trade Name Freq PRN Reason Stop Dose Admin Acetaminophen 1,000 mg 08/10/20 14:41 Acetaminophen 500 Mg Tablet PO Q6H PRN PRN Pain Score 1-3 Amiodarone HCl 200 mg 08/10/20 18:00 08/11/20 05:26 Amiodarone 200 Mg Tablet PO 200 mg BID PATRICE Administration Apixaban 2.5 mg 08/10/20 18:00 08/11/20 05:26 Apixaban 2.5 Mg Tablet PO 2.5 mg BID [facility] Administration Ascorbic Acid 500 mg 08/11/20 08:00 08/11/20 09:24 Ascorbic Acid 500 Mg Tablet PO 500 mg DAILYCOX MONETT Administration Aspirin 81 mg 08/11/20 08:00 08/11/20 09:19 Aspirin 81 Mg Tab.Chew PO 81 mg DAILY@0800 [facility] Administration Atorvastatin Calcium 40 mg 08/10/20 22:00 08/10/20 21:50 Atorvastatin Calcium 40 Mg Tablet PO 40 mg QHS [facility] Administration Baclofen 10 mg 08/10/20 22:00 08/11/20 14:56 Baclofen 10 Mg Tablet PO 10 mg TID [facility] Administration Bisacodyl 10 mg 08/10/20 14:41 Bisacodyl 5 Mg Tablet PO DAILY PRN PRN Constipation Calamine/Phenol 1 applic 08/10/20 18:00 08/11/20 05:13 Menthol/Lanolin/Calamine/Znox 113 Gm Tube TOPICAL 1 applic BID [facility] Administration Protocol Cephalexin 500 mg 08/10/20 22:00 08/11/20 14:56 Cephalexin 500 Mg Capsule PO 08/12/20 22:00 500 mg Q8 [facility] Administration Clopidogrel Bisulfate 75 mg 08/11/20 06:00 08/11/20 05:26 Clopidogrel Bisulfate 75 Mg Tablet PO 75 mg DAILY [facility] Administration Cyanocobalamin 500 mcg 08/11/20 06:00 08/11/20 05:26 Cyanocobalamin 500 Mcg Tablet PO 500 mcg DAILY [facility] Administration Finasteride 5 mg 08/11/20 06:00 08/11/20 05:26 Finasteride 5 Mg Tablet PO 5 mg DAILY [facility] Administration Folic Acid 1.5 mg 08/11/20 08:00 08/11/20 09:20 Folic Acid 1 Mg Tablet PO 1.5 mg DAILYCOX MONETT Administration Hydroxychloroquine Sulfate 200 mg 08/10/20 17:00 08/11/20 09:23 Hydroxychloroquine 200 Mg Tablet PO 200 mg BIDCOX MONETT Administration Magnesium Hydroxide 30 ml 08/10/20 14:42 Magnesium Hydroxide 30 Ml Udc PO DAILY PRN PRN Constipation Methotrexate 20 mg 08/16/20 06:00 Methotrexate 2.5 Mg Tablet PO Bui@0600 [facility] Metoprolol Tartrate 12.5 mg 08/10/20 18:00 08/11/20 05:27 Metoprolol Tartrate 25 Mg Tablet PO 12.5 mg BID PATRICE Administration Mirtazapine 7.5 mg 08/10/20 22:00 08/10/20 21:50 Mirtazapine 15 Mg Tablet PO 7.5 mg QHS PATR[facility] Administration Multivitamins 1 tablet 08/11/20 08:00 08/11/20 09:23 Multivitamins,Therapeutic Tablet PO 1 tablet DAILY@0800 PATR[facility] Administration Nutritional Formula (Lactose Free) 120 ml 08/10/20 17:00 08/11/20 12:54 Ensure Enlive 120 Ml Liquid PO 120 ml 4X/DAY [facility] Administration Nystatin 1 applic 08/10/20 18:00 08/11/20 05:29 Nystatin Powder 15gm Bottle TOPICAL 1 applic BID [facility] Administration Protocol Oxycodone HCl 15 mg 08/10/20 14:42 08/10/20 18:32 Oxycodone 5 Mg Tablet PO 15 mg Q6H PRN Administration Pain Score 4-10 Polyethylene Glycol 17 gm 08/11/20 06:00 08/11/20 05:13 Polyethylene Glycol 3350 17 Gm Packet PO 17 gm DAILY [facility] Administration Potassium Chloride 10 meq 08/11/20 08:00 08/11/20 09:21 Potassium Chloride Oral Tablet 10 Meq PO 10 meq DAILYCM [facility] Administration Prednisone 20 mg 08/11/20 08:00 08/11/20 09:26 Prednisone 20 Mg Tablet PO 08/13/20 08:01 20 mg DAILYCM [facility] Administration Prednisone 30 mg 08/14/20 08:00 Prednisone 10 Mg Tablet PO 08/16/20 08:01 DAILYCM [facility] Prednisone 20 mg 08/17/20 08:00 Prednisone 20 Mg Tablet PO 08/19/20 08:01 DAILYCM [facility] Prednisone 10 mg 08/20/20 08:00 Prednisone 10 Mg Tablet PO 08/22/20 08:01 DAILYCM [facility] Senna/Docusate Sodium 2 tablet 08/10/20 18:00 08/11/20 05:25 Senna/Docusate Sodium 1 Tablet PO 2 tablet BID PATRICE Administration Tamsulosin HCl 0.4 mg 08/10/20 18:00 08/10/20 18:19 Tamsulosin Hcl 0.4 Mg Capsule PO 0.4 mg 1800 PATRICE Administration Topiramate 25 mg 08/10/20 18:00 08/11/20 05:30 Topiramate 25 Mg Tablet PO 25 mg BID PATRICE Administration Trazodone HCl 150 mg 08/10/20 22:00 08/10/20 22:53 Trazodone 100 Mg Tablet PO 150 mg QHS PATRICE Administration Tuberculin PPD 5 tu 08/18/20 10:00 Tuberculin,Purif.Prot.Deriv. 50 Tu/Ml Vial ID 08/18/20 10:01 X1 ONE Problem List (Last Updated 08/06/20 @ 15:34 by Kim Kraus) Left wrist pain (Chronic) Osteoarthritis of left knee (Chronic) PSVT (paroxysmal supraventricular tachycardia) (Acute) Debility (Acute) Lumbar spinal stenosis (Chronic) Atrial fibrillation with rapid ventricular response (Chronic) Muscle spasm (Chronic) GERD (gastroesophageal reflux disease) (Chronic) Rheumatoid arthritis (Chronic) Insomnia (Chronic) Right groin pain (Chronic) Appetite loss (Chronic) Fever (Acute) Inflammatory arthritis (Chronic) NSTEMI (non-ST elevated myocardial infarction) (Acute) Vital Signs Temp Pulse Resp BP Pulse Ox 99.1 F 69 17 88/55 L 96 08/11/20 13:42 08/11/20 13:42 08/11/20 13:42 08/11/20 13:42 08/11/20 13:42 Oxygen Delivery Method Room Air Weight: 54.839 kg Body Mass Index (BMI) 21.4 Sodium 140 mmol/L (136-145) 08/11/20 05:05 Potassium 3.7 mmol/L (3.5-5.1) 08/11/20 05:05 Chloride 109 mmol/L (98-107) H 08/11/20 05:05 Carbon Dioxide 28.0 mmol/L (21.0-32.0) 08/11/20 05:05 Anion Gap 3 (5-15) L 08/11/20 05:05 BUN 19 mg/dL (7-18) H 08/11/20 05:05 Creatinine 0.78 mg/dL (0.70-1.30) 08/11/20 05:05 Est GFR (MDRD) Af Amer 124 mL/min (>60) 08/11/20 05:05 Est GFR (MDRD) Non-Af 103 mL/min (>60) 08/11/20 05:05 BUN/Creatinine Ratio 24.4 RATIO (10-20) H 08/11/20 05:05 Glucose 110 mg/dL (74-106) H 08/11/20 05:05 Assessment/Plan: Psychotropic Medications: Unnecessary Medications: Bowel Regimen: - Provider Comments Provider responsibility: Provider responsible to enter orders to implement recommendations Provider Comments to Recommendations by Pharmacy: Agree
--- NOTE | 2020-08-11 15:53 | NURSING ---
FAMILY UPDATED BY PT.
--- NOTE | 2020-08-11 16:29 | CHAPLAIN ---
Type of Pastoral Visit _x__ Initial Visit ___ Follow-up Visit ___ On-call Visit ___ General Patient Visit ___ Spiritual Assessment ___ Family Conference ___ Bereavement ___ Rapid Response ___ Code Blue ___ Other (describe below) Pastoral Care Referral From _x__ Patient ___ Family ___ Nurse ___ Physician ___ Locker Room Manager ___ Aviation Neuropsychologist ___ Other (describe below) Sacrament/Intervention _x__ Active listening ___ Anointing ___ Moravian ___ Bereavement ___ Communion _x__ Enriqueta exploration ___ _x__ Life review _x_ Prayer ___ Reconciliation ___ Sacrament of Sick _x__ Supportive presence ___ Wedding ___ Other (describe below) Pastoral Comments patient open to talk and discuss his health issues of last months and his new appreciation for life and God's realness; pt reports a number of positive things and attitudes for his recovery; pt is tearful at times about the good things he has been able to have in his life and for his care; 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
[2020-08-11] MEDS: Tamsulosin HCl 0.4 MG Capsule PO (18:32)
[2020-08-11 18:35] VITALS: BP 110/58; PULSE 69
[2020-08-11] MEDS: oxyCODONE 5 MG Tablet 15 MG PO (18:38)
[2020-08-11 18:42] VITALS: BP 110/58; PULSE 69
[2020-08-11 20:10] VITALS: PULSE 72; RESP 16; O2SAT 97
[2020-08-11] MEDS: Atorvastatin Calcium 40 MG Tablet PO (20:36)
[2020-08-11] MEDS: Mirtazapine 15 MG Tablet 7.5 MG PO (20:36)
[2020-08-11] MEDS: Acetaminophen 500 MG Tablet 1000 MG PO (20:37)
[2020-08-11] MEDS: traZODone 100 MG Tablet 150 MG PO (22:53)
[2020-08-12 06:45] VITALS: BP 109/57; PULSE 60; RESP 16; TEMP 37.1; O2SAT 96
[2020-08-12] MEDS: Topiramate 25 MG Tablet PO (06:47)
[2020-08-12 06:48] VITALS: BP 109/57; PULSE 30
[2020-08-12] MEDS: Baclofen 10 MG Tablet PO (06:48)
[2020-08-12] MEDS: Amiodarone 200 MG Tablet PO (06:48)
[2020-08-12] MEDS: APIXABAN 2.5 MG TABLET PO (06:48)
[2020-08-12] MEDS: Clopidogrel Bisulfate 75 MG Tablet PO (06:48)
[2020-08-12] MEDS: Metoprolol Tartrate 25 MG Tablet 12.5 MG PO (06:48)
[2020-08-12] MEDS: Senna/Docusate Sodium 1 Tablet 2 TABLET PO (06:48)
[2020-08-12] MEDS: Cephalexin 500 MG Capsule PO (06:48)
[2020-08-12] MEDS: Finasteride 5 MG Tablet PO (06:48)
[2020-08-12] MEDS: Cyanocobalamin 500 MCG Tablet PO (06:48)
[2020-08-12] MEDS: Nystatin Powder 15gm Bottle 1 APPLIC TOPICAL (06:53)
[2020-08-12] MEDS: Menthol/Lanolin/Calamine/Znox 113 GM Tube 1 APPLIC TOPICAL (06:53)
[2020-08-12] MEDS: Folic Acid 1 MG Tablet 1.5 MG PO (08:48)
[2020-08-12] MEDS: Hydroxychloroquine 200 MG Tablet PO (08:48)
[2020-08-12] MEDS: Potassium Chloride Oral Tablet 10 MEQ PO (08:48)
[2020-08-12] MEDS: Ascorbic Acid 500 MG Tablet PO (08:48)
[2020-08-12] MEDS: predniSONE 20 MG Tablet PO (08:48)
[2020-08-12] MEDS: Aspirin 81 MG TAB.CHEW PO (08:48)
[2020-08-12] MEDS: Multivitamins,Therapeutic Tablet 1 TABLET PO (08:48)
--- NOTE | 2020-08-12 10:10 | EKG12_ITS ---
Test Reason : SYNCOPE Blood Pressure : / mmHG Vent. Rate : 053 BPM Atrial Rate : 053 BPM P-R Int : 192 ms QRS Dur : 076 ms QT Int : 478 ms P-R-T Axes : 000 018 067 degrees QTc Int : 448 ms Sinus bradycardia Low voltage QRS Septal infarct , age undetermined Abnormal ECG When compared with ECG of 09-AUG-2020 04:55, MANUAL COMPARISON REQUIRED, DATA IS UNCONFIRMED Confirmed by AMOR PERALES, PER ([id number]), news copy editor DEMARCUS CAMARENA ([id number]) on 08/13/2020 1:00:20 PM Referred By: Confirmed By:PER CHINCHILLA MD
[2020-08-12 10:11] LABS: Bedside Glucose 101 mg/dL (70-110)
[2020-08-12 10:21] VITALS: RESP 14
--- NOTE | 2020-08-12 19:34 | DCINST_ITS ---
- Discharge Diagnoses Current Active Problems: Current Active and Chronic Problems (Last Updated 08/06/20 @ 15:34 by Kim Kraus) Left wrist pain (Chronic) Osteoarthritis of left knee (Chronic) PSVT (paroxysmal supraventricular tachycardia) (Chronic) Debility (Chronic) Lumbar spinal stenosis (Chronic) Atrial fibrillation with rapid ventricular response (Chronic) Muscle spasm (Chronic) GERD (gastroesophageal reflux disease) (Chronic) Rheumatoid arthritis (Chronic) Insomnia (Chronic) Right groin pain (Chronic) Appetite loss (Chronic) Fever (Acute) Inflammatory arthritis (Chronic) NSTEMI (non-ST elevated myocardial infarction) (Chronic) You will use the following diet at home:: No restrictions, Regular Your food should be the consistency of: Regular Your liquids should be the consistency of: Regular/Thin Discharge Activity: Return to Normal Activity, May Shower, Use Walker Weight Bearing Status: Weight bearing as tolerated Call your doctor if your incision/area has: Increased Pain/ Swelling Call your doctor if you observe: Inability to urinate, Inability to have a bowel movement, Shortness of breath, Chest pain, Uncontrolled pain Allergies/Adverse Reactions: Allergies No Known Allergies Allergy (Verified 08/12/20 10:35) Medications to take at Discharge Hydroxychloroquine [Plaquenil] 200 mg PO BIDCM 10/09/14 Finasteride [Proscar] 5 mg PO DAILY 12/10/18 methotrexate sodium 2.5 mg tablet 20 mg PO JONES@0600 01/29/19 ascorbic acid (vitamin C) 500 mg chewable tablet 500 mg PO DAILY tab 01/30/19 ounshfyj-bbdwhmih-hvoaz acid 400 mcg-vit K 20 mcg-lycop 300 mcg tablet 1 tab PO DAILY 04/06/20 Apixaban [Eliquis] 2.5 mg PO BID #60 tab 06/01/20 Cyanocobalamin (Vitamin B-12) [Vitamin B-12] 500 mcg PO DAILY 07/13/20 Topiramate [Topamax] 25 mg PO BID 07/13/20 Metoprolol Tartrate [Lopressor (beta santiago)] 12.5 mg PO BID 07/18/20 Polyethylene Glycol 3350 [Miralax] 17 gm PO DAILY 07/18/20 Senna/Docusate Sodium [Senokot-S] 2 tab PO BID 07/18/20 Tamsulosin HCl [Flomax] 0.4 mg PO DAILY@1800 07/18/20 Acetaminophen [Tylenol] 1,000 mg PO Q6H PRN PRN 08/02/20 Baclofen [Lioresal] 10 mg PO TID 08/02/20 Folic Acid 1.5 mg PO DAILY 08/02/20 Menthol/Lanolin/Calamine/Znox [Calmoseptine Ointment] 1 applic TOPICAL BID 08/02/20 Nystatin Powder [Mycostatin Powder] 1 applic TOPICAL BID 08/02/20 Potassium Chloride Oral Tablet [K-Dur] 10 meq PO DAILY 08/02/20 Amiodarone HCl [Cordarone] 200 mg PO BID 08/10/20 Aspirin [Aspirin, Baby] 81 mg PO DAILY@0800 #0 08/10/20 Atorvastatin Calcium [Lipitor] 40 mg PO QHS 08/10/20 Cephalexin [Keflex] 500 mg PO Q8 08/10/20 Clopidogrel Bisulfate [Plavix] 75 mg PO DAILY 08/10/20 Ensure Enlive 120 ml PO 4X/DAY 08/10/20 Prednisone See Taper PO DAILY 08/10/20 Mirtazapine 7.5 mg PO QHS 08/12/20 Oxycodone [Oxyir] 15 mg PO Q6H PRN 08/12/20 Trazodone HCl 150 mg PO QHS 08/12/20 Primary Care Physician: Gloria Hazel MD [Primary Care Provider] - Please follow up with your Primary Care Physician in: 1 week. Test Results: Test results from this visit will be discussed in further detail at your follow- up appointment, if applicable. Please Follow Up With: Laith Garcia MD When: 2-4 weeks Proposed Discharge Date: 08/12/20
--- NOTE | 2020-08-12 19:36 | DS.PCM_ITS ---
Discharge Date and Diagnosis - Problem List Patient Problems: Active and Suspected Problems (Last Updated 08/06/20 @ 15:34 by Kim Kraus) Fever (Acute) Date of Admission: 08/10/20 Date of Discharge: 08/12/20 - Primary Discharge Diagnosis Acute Problems: Active Problems (Last Updated 08/06/20 @ 15:34 by Kim Kraus) Fever (Acute) - Secondary Discharge Diagnosis Chronic Problems: Chronic Problems (Last Updated 08/06/20 @ 15:34 by Kim Kraus) Left wrist pain (Chronic) Osteoarthritis of left knee (Chronic) PSVT (paroxysmal supraventricular tachycardia) (Chronic) Atherosclerotic heart disease of [place] coronary artery without angina pectoris (Chronic) History of coronary artery stent placement (Chronic 08/06/20) Successful PCI on OM2 with GAGE. 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 Garcia on 08/06/2020 Atrial fibrillation (Chronic) Debility (Chronic) Lumbar spinal stenosis (Chronic) Atrial fibrillation with rapid ventricular response (Chronic) Muscle spasm (Chronic) GERD (gastroesophageal reflux disease) (Chronic) Rheumatoid arthritis (Chronic) Insomnia (Chronic) BPH (benign prostatic hyperplasia) (Chronic) Right groin pain (Chronic) Appetite loss (Chronic) Inflammatory arthritis (Chronic) NSTEMI (non-ST elevated myocardial infarction) (Chronic) Abnormal EKG (Chronic) Abnormal echocardiogram (Chronic) Left ventricular hypokinesis (Chronic) Leg pain, bilateral (Chronic) Edema (Chronic) Hospital Course and Treatment Operations: None Procedures: None Summary of Care Provided: The patient is a 79 year old Male with below past medical history hospitalized for inflammatory arthritis, complicated by PSVT, NSTEMI, coronary artery disease requiring heart catheterization with stent, P. Mirabilis urinary tract infection, admitted to TCU with debility, here for rehabilitation, strengthening, prior to discharge home alone. 08/12/2020 Resident unresponsive after therapy, pale. He has chronically occluded LAD, consider surgical intervention. Discharge to [facility] Emergency Department for evaluation, admission to hospital. Patient Problems: Active and Suspected Problems (Last Updated 08/06/20 @ 15:34 by Kim Kraus) Fever (Acute) - Physical Exam Vitals/I&O's: Vital Signs Temp Pulse Resp BP Pulse Ox 98.7 F 30 L 14 109/57 L 96 08/12/20 06:45 08/12/20 06:48 08/12/20 10:21 08/12/20 06:48 08/12/20 06:45 Oxygen Delivery Method Nasal Cannula Weight: 54.839 kg Body Mass Index (BMI) 21.4 Intake and Output for Last 24 Hours 08/10/20 08/11/20 08/12/20 23:59 23:59 23:59 Intake Total 240 / 240 840 / 840 240 / 240 Output Total 500 / 500 Balance 240 / 240 340 / 340 240 / 240 Laboratory Results 08/12/20 10:03: POC Glucose 101 Discharge Diet: No Restrictions Discharge Activity: Return to Normal Activity, May Shower, Use Walker Weight Bearing Status: Weight bearing as tolerated Call your doctor if your incision/area has: Increased Pain/ Swelling Call your doctor if you observe: Inability to urinate, Inability to have a bowel movement, Shortness of breath, Chest pain, Uncontrolled pain Home Medications: Medications to take at Discharge Hydroxychloroquine [Plaquenil] 200 mg PO BIDCM 10/09/14 Finasteride [Proscar] 5 mg PO DAILY 12/10/18 methotrexate sodium 2.5 mg tablet 20 mg PO JONES@0600 01/29/19 ascorbic acid (vitamin C) 500 mg chewable tablet 500 mg PO DAILY tab 01/30/19 kbcrnxbn-cqxhcerr-tkpgn acid 400 mcg-vit K 20 mcg-lycop 300 mcg tablet 1 tab PO DAILY 04/06/20 Apixaban [Eliquis] 2.5 mg PO BID #60 tab 06/01/20 Cyanocobalamin (Vitamin B-12) [Vitamin B-12] 500 mcg PO DAILY 07/13/20 Topiramate [Topamax] 25 mg PO BID 07/13/20 Metoprolol Tartrate [Lopressor (beta santiago)] 12.5 mg PO BID 07/18/20 Polyethylene Glycol 3350 [Miralax] 17 gm PO DAILY 07/18/20 Senna/Docusate Sodium [Senokot-S] 2 tab PO BID 07/18/20 Tamsulosin HCl [Flomax] 0.4 mg PO DAILY@1800 07/18/20 Acetaminophen [Tylenol] 1,000 mg PO Q6H PRN PRN 08/02/20 Baclofen [Lioresal] 10 mg PO TID 08/02/20 Folic Acid 1.5 mg PO DAILY 08/02/20 Menthol/Lanolin/Calamine/Znox [Calmoseptine Ointment] 1 applic TOPICAL BID 08/02/20 Nystatin Powder [Mycostatin Powder] 1 applic TOPICAL BID 08/02/20 Potassium Chloride Oral Tablet [K-Dur] 10 meq PO DAILY 08/02/20 Amiodarone HCl [Cordarone] 200 mg PO BID 08/10/20 Aspirin [Aspirin, Baby] 81 mg PO DAILY@0800 #0 08/10/20 Atorvastatin Calcium [Lipitor] 40 mg PO QHS 08/10/20 Cephalexin [Keflex] 500 mg PO Q8 08/10/20 Clopidogrel Bisulfate [Plavix] 75 mg PO DAILY 08/10/20 Ensure Enlive 120 ml PO 4X/DAY 08/10/20 Prednisone See Taper PO DAILY 08/10/20 Mirtazapine 7.5 mg PO QHS 08/12/20 Oxycodone [Oxyir] 15 mg PO Q6H PRN 08/12/20 Trazodone HCl 150 mg PO QHS 08/12/20 Primary Care Physician: Gloria Hazel MD [Primary Care Provider] - Please follow up with your Primary Care Physician in: 1 week. Please Follow Up With: Laith Garcia MD When: 2-4 weeks Disposition: Acute care Hospital Minutes spent on discharge:: 30 Patient Condition:: Guarded Medical Necessity - Tobacco Use Smoking Status: Former smoker Tobacco Use: Non-smoker Meaningful Use Info Meaningful Use Diagnoses (Choose all that apply): None applicable
--- NOTE | 2020-08-20 13:15 | MDS.RN ---
Information for the mds was obtained from review of the clinical record, interview of resident, staff, and direct observation of resident's care.
== END 2020-08-12 17:56 | disposition short-term general hospital (02) | DRG 281 ==
PROVIDERS: Admitting Provider Family Medicine Geriatric Medicine; PCP Family Medicine; Visit Provider Family Medicine Geriatric Medicine
DX: I21.4 Non-ST elevation (NSTEMI) myocardial infarction (principal); I47.1 Supraventricular tachycardia; N39.0 Urinary tract infection, site not specified; I48.20 Chronic atrial fibrillation, unspecified; I25.10 Atherosclerotic heart disease of native coronary artery without angina pectoris; R41.82 Altered mental status, unspecified; M06.4 Inflammatory polyarthropathy; N40.0 Benign prostatic hyperplasia without lower urinary tract symptoms; B96.4 Proteus (mirabilis) (morganii) as the cause of diseases classified elsewhere; E78.5 Hyperlipidemia, unspecified; B35.4 Tinea corporis; E87.6 Hypokalemia; G43.909 Migraine, unspecified, not intractable, without status migrainosus; M17.12 Unilateral primary osteoarthritis, left knee; K21.9 Gastro-esophageal reflux disease without esophagitis; Z79.899 Other long term (current) drug therapy; Z79.01 Long term (current) use of anticoagulants; Z79.02 Long term (current) use of antithrombotics/antiplatelets; Z87.891 Personal history of nicotine dependence; Z95.5 Presence of coronary angioplasty implant and graft
CPT/HCPCS: 80048; 82962; 85025; 93005; 97110; 97162; 97166; 97530; 97535; 97802; 99251; G0463

== ENCOUNTER 2020-08-12 10:25 | Emergency (ER) | payer MEDICARE, SELFPAY ==
[2020-08-11 13:20] VITALS: BMI 21.4
[2020-08-12] VITALS (9 sets, daily range): BP systolic 101–129; BP diastolic 55–93; PULSE 56–68; RESP 14–22; TEMP 36.2–36.6; O2SAT 98–100; BMI 23.5
--- NOTE | 2020-08-12 10:39 | ED.DCSUM_ITS ---
History of Present Illness Chief Complaint: Syncope Informant: Patient Narrative: 79-year-old male presenting with an episode of syncope. Patient is currently in the TCU rehabbing. He states that he does not remember exactly all that happened. He states he was doing physical therapy and became very lightheaded. It was reported that he went unresponsive for short time. There was no bystander CPR. He did wake him without treatment. He states he did not have any chest pain or shortness of breath. He states he feels much better. Patient states he has not been eating very well. He is making stool and urine. He has not had a fever. - Past Medical History (1) Debility Status: Chronic (2) NSTEMI (non-ST elevated myocardial infarction) Status: Chronic (3) PSVT (paroxysmal supraventricular tachycardia) Status: Chronic Past Medical History - Allergies and Home Meds Allergies/Adverse Reactions: Allergies No Known Allergies Allergy (Verified 08/12/20 10:35) Primary Care Physician: Gloria Hazel MD [Primary Care Provider] - Surgical History: adenoidectomy, appendectomy, cataract - Bilateral., cholecystectomy - Laparoscopic., colectomy - Left., herniorrhaphy - Umbilical, Inguinal., rotator cuff repair - Bilateral., - - Hemorrhoidectomy, Vasectomy. Lives: - - TCU Smoking Status: Former smoker Alcohol: None Drugs: None - Family History Maternal Family History: Family History (Last Reviewed 08/07/20 @ 12:31 by MARTIN Staley) Father CVA (cerebral vascular accident) Brother CAD (coronary artery disease) Mother CVA (cerebral vascular accident) Grandfather Cancer Family History: Reports: No pertinent history Paternal Family History: Family History (Last Reviewed 08/07/20 @ 12:31 by MARTIN Staley) Father CVA (cerebral vascular accident) Brother CAD (coronary artery disease) Mother CVA (cerebral vascular accident) Grandfather Cancer Family History: Reports: No pertinent history Review of Systems General: Denies: Chills, Fever, Sweats Eyes: Denies: Visual changes - bilaterally, Diplopia ENT: Denies: Rhinorrhea, Sore throat Cardiovascular: Reports: - - Syncope. Denies: Chest pain, Palpitations Respiratory: Denies: Dyspnea, Cough Gastrointestinal: Denies: Abdominal pain, Nausea Genitourinary: Denies: Dysuria, Hematuria Musculoskeletal: Reports: - - Left wrist pain. Denies: Swelling Skin: Denies: Rash, Abscess Neurological: Denies: Headache, Weakness, Parasthesia Psych: Denies: Depression, Anxiety Physical Exam Vital Signs/Narrative: Vital Signs Temp Pulse Resp BP Pulse Ox 08/12/20 10:26 97.8 F 56 L 17 107/57 L 100 Inital Vital Signs reviewed: Yes General: Well nourished, No Acute Distress Head: Normocephalic, Atraumatic Eyes: Perrl, EOMI ENT: Moist mucous membranes, No rhinorrhea Cardiovascular: Regular rhythm, Bradycardia Respiratory: No distress, CTA bilaterally Extremities: Nontender, No edema Skin: Normal color, No rash. Negative for: Cyanosis, Diaphoresis Neurological: Alert, Oriented x3, Cranial nerves II-XII grossly intact Psychological: Normal affect, Normal Mood Diagnostic/Tx/Re-eval Clinical Impression(s) from Imaging Studies Brain CT 08/12/20 10:39 IMPRESSION: Chronic involutional changes of the brain. Electronically Signed: Nicko Yoon MD at 11:51 EDT , Service support , Chest X-Ray 08/12/20 11:18 IMPRESSION: Mild degree of left basilar atelectasis. Electronically Signed: Nicko Yoon MD at 11:53 EDT , Service support , Laboratory Data 08/12/20 08/12/20 10:32 10:32 WBC 6.7 RBC 4.00 L Hgb 12.1 L Hct 38.0 L MCV 95.0 H MCH 30.3 MCHC 31.8 L RDW Std Deviation 59.1 H RDW Coeff of Jaciel 17.2 H Plt Count 319 MPV 9.7 Immature Gran % (Auto) 0.600 Neut % (Auto) 58.0 Lymph % (Auto) 32.5 Crisp % (Auto) 8.5 Eos % (Auto) 0.4 Baso % (Auto) 0.0 Absolute Neuts (auto) 3.9 Absolute Lymphs (auto) 2.18 Nucleated RBC % 0 Sodium 140 Potassium 3.6 Chloride 109 H Carbon Dioxide 26.0 Anion Gap 5 BUN 19 H Creatinine 0.78 Estim Creat Clear Calc 49.79 Est GFR (MDRD) Af Amer 123 Est GFR (MDRD) Non-Af 102 BUN/Creatinine Ratio 24.2 H Glucose 115 H Calcium 8.6 Troponin I 0.060 H - Medical Decision Making Male presenting with an episode of syncope. He did become arousable without any intervention. EKG performed at the time shows a sinus bradycardia without any ischemic changes. This is unchanged from August 09 as interpreted by myself. Chest x-ray is interpreted by myself shows no acute process. His blood work appears to be all in the range of what is been recently. His troponin is trending down to 0.6. Patient has no current complaints. Review his medical record and it does appear that he has 100% occlusion of the LAD. I will discuss with cardiology to see if they plan to reattempt stenting this versus sending patient to tertiary facility. After discussion with Dr. Siu he did recommend transfer as patient will likely end up needing a CABG. Patient wishes to go to [facility]. Patient discussed with transfer line and is accepted by Dr. Andrews. [facility] did request a second troponin. Patient has been medically stable and chest pain-free. Impression: 1. Syncope 2. History of 100% LAD occlusion ED Disposition - Plan for ED Patient: Referrals: Gloria Hazel MD [Primary Care Provider] -
--- NOTE | 2020-08-12 10:39 | CT_ITS ---
STUDY: CT BRAIN WITHOUT CONTRAST REASON FOR EXAM: Male, 79 years old. Syncope RADIATION DOSAGE (If Supplied By Facility): CTDIvol = ( 44.99 ) mGy, DLP = ( 829.85 ) mGycm TECHNIQUE: Transaxial CT imaging of the brain was performed without administration of intravenous contrast material. Individualized dose optimization techniques were used for this CT. COMPARISON: Comparison is made with prior study dated 02/17/2015. FINDINGS: Normal soft tissue structures. Normal calvarium. There is mild cerebral atrophy with widening of the extra-axial spaces and ventricular dilatation. There are areas of decreased attenuation within the white matter tracts of the supratentorial brain, consistent with microvascular disease changes. There are small punctate calcifications of the basal ganglia which are seen in the aging brain as a normal variant. Normal brainstem. Normal cerebellum. There is no intracranial hemorrhage. There are no findings of an acute ischemic infarction. Atherosclerotic calcification of the cavernous portions of the internal carotid arteries bilaterally. Normal visualized paranasal sinuses. CT/Brain/Head without Contrast IMPRESSION: Chronic involutional changes of the brain. Electronically Signed: Nicko Yoon MD at 11:51 EDT , Service support ,
[2020-08-12 10:48] LABS: Absolute Lymphocyte Count 2.18 X10^3/uL (0.83-4.51); Absolute Neutrophil Count 3.9 X10^3/uL (2.0-7.7); Eosinophil# 0.03 X10^3/uL; Eosinophils% 0.4 % (0-5); Hemoglobin 12.1 g/dL (13.0-16.5); Lymphocyte # 2.18 X10^3/ul (4.0); Lymphocyte % 32.5 % (19-41); Mean Corp Hgb Conc 31.8 g/dL (32-36); Mean Corpuscular Hgb 30.3 pg (27.0-32.0); Mean Platelet Vol. 9.7 fl (6.2-12.0); Monocyte# 0.57 X10^3/uL; Monocyte% 8.5 % (0-10); NRBC Flagged by Analyzer 0 % (0-5); Neutrophil # 3.89 X10^3/uL (2.7-7.7); Platelet Count 319 K/mm3 (150-450); RBC Distribution Width CV 17.2 % (11.6-14.6); RBC Distribution Width SD 59.1 fl (35.1-43.9); White Blood Count 6.7 K/mm3 (4.4-11.0)
[2020-08-12 11:04] LABS: Anion Gap 5 (5-15); BUN 19 mg/dL (7-18); BUN/Creat Ratio 24.2 RATIO (10-20); Calcium,Total 8.6 mg/dL (8.5-10.1); Chloride 109 mmol/L (98-107); Creatinine, Serum 0.78 mg/dL (0.70-1.30); EST Glomerular Filtration Rate 102 mL/min (>60); Est Glom Filt Rate - Afr Amer 123 mL/min (>60); Estimated Creatinine Clearance 49.79 ml/min; Glucose 115 mg/dL (74-106); Potassium 3.6 mmol/L (3.5-5.1); Sodium Level 140 mmol/L (136-145)
[2020-08-12] MEDS: 0.9% Normal Saline 1,000 ML 1000 ML IV (11:04)
--- NOTE | 2020-08-12 11:18 | RAD_ITS ---
STUDY: X-RAY CHEST REASON FOR EXAM: Male, 79 years old. Chest pain TECHNIQUE: Single AP portable view of the chest. COMPARISON: Comparison is made with prior study dated 08/02/2020. FINDINGS: EKG lead are seen. Mild with increased markings at the left lung base suggestive of linear atelectasis. There is no demonstrated pleural abnormality. There is mild cardiac enlargement. Normal mediastinum and conrad. Normal visualized pulmonary arteries. There is atherosclerotic tortuosity of the aortic arch and descending thoracic aorta. There are diffuse degenerative changes of the visualized thoracic spine. Normal visualized ribs, clavicles, and shoulders. There is no demonstrated abnormality of the visualized soft tissue structures of the upper abdomen. RAD/Chest 1 View (Portable) IMPRESSION: Mild degree of left basilar atelectasis. Electronically Signed: Nicko Yoon MD at 11:53 EDT , Service support ,
--- NOTE | 2020-08-12 14:21 | NURSING ---
CALLED [facility] FOR TRANSFER. TALKED TO TACO
--- NOTE | 2020-08-12 15:51 | NURSING ---
ACCEPTED AT [facility] BY DR NEWTON. NO ROOM YET
--- NOTE | 2020-08-12 17:06 | NURSING ---
CALLED [facility], ETA IS 90 MIN
== END 2020-08-12 19:06 | disposition short-term general hospital (02) ==
PROVIDERS: Emergency Provider Student in an Organized Health Care Education/Training Program; PCP Family Medicine
DX: R55 Syncope and collapse (principal); I25.10 Atherosclerotic heart disease of native coronary artery without angina pectoris; Z87.891 Personal history of nicotine dependence
CPT/HCPCS: 70450; 71045; 80048; 84484; 85025; 96360; 96361; 99285; A4216

== ENCOUNTER 2020-08-17 16:15 | Inpatient (IN) | payer MEDICARE, SELFPAY ==
[2020-08-12 10:26] VITALS: BMI 23.5
[2020-08-17 16:30] VITALS: BP 114/69; PULSE 78; RESP 14; TEMP 36.3; O2SAT 98; BMI 21.0; BMI 21.1
[2020-08-17] MEDS: Topiramate 25 MG Tablet PO (18:25)
[2020-08-17] MEDS: Amiodarone 200 MG Tablet PO (18:25)
[2020-08-17] MEDS: Tamsulosin HCl 0.4 MG Capsule PO (18:25)
[2020-08-17] MEDS: APIXABAN 2.5 MG TABLET 5 MG PO (18:25)
[2020-08-17] MEDS: Senna Tablet 1 TABLET PO (18:25)
--- NOTE | 2020-08-17 18:54 | NURSING ---
Dr cummings spoke with pt regarding code status, pt verbalized DNRCCA, no intubation. purple bracelet applied to rt wrist.
--- NOTE | 2020-08-17 20:08 | HP.PCM_ITS ---
Problem List (1) Syncope Status: Acute (2) Coronary artery disease Status: Chronic (3) PSVT (paroxysmal supraventricular tachycardia) Status: Chronic (4) Debility Status: Acute (5) Lumbar spinal stenosis Status: Chronic (6) Atrial fibrillation with rapid ventricular response Status: Chronic (7) Muscle spasm Status: Chronic (8) GERD (gastroesophageal reflux disease) Status: Chronic (9) Rheumatoid arthritis Status: Chronic (10) Insomnia Status: Chronic (11) Appetite loss Status: Chronic History of Present Illness Date of Admission: 08/17/20 Chief Complaint: Here for rehabilitation, strengthening, prior to discharge home alone. 08/13/2020 The patient is a 79 year old Male TCU resident with below past medical history, had syncopal episode after therapy, transferred to [facility] Emergency Department for evaluation. He had recent cardiac stent, also 100% occluded LAD, he was transferred to [facility] for further care. Troponin was 0.60 which is decreased from 1.94 on 08/06/2020. Cardiology at [place] recommended transfer for either high risk stent or CABG evaluation. [facility] Cardiology thought syncopal episode was arrhythmia related, recommended event monitor at discharge. Cardiothoracic surgery evaluated patient, no plans for CABG. 08/17/2020 Admit to TCU with debility, here for rehabilitation, strengthening, prior to discharge home alone. I discussed code status with resident, explained the differences between full code, DNRCCA with and without intubation, and DNRCC. Resident decided DNRCCA without intubation was appropriate code status. Discussion took 16 minutes. Past Medical History Past Medical History (Chronic Problems): Chronic Problems (Last Updated 08/06/20 @ 15:34 by Kim Kraus) Left wrist pain (Chronic) Osteoarthritis of left knee (Chronic) PSVT (paroxysmal supraventricular tachycardia) (Chronic) Coronary artery disease (Chronic) Atherosclerotic heart disease of [place] coronary artery without angina pectoris (Chronic) History of coronary artery stent placement (Chronic 08/06/20) Successful PCI on OM2 with GAGE. 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 Garcia on 08/06/2020 Atrial fibrillation (Chronic) Lumbar spinal stenosis (Chronic) Atrial fibrillation with rapid ventricular response (Chronic) Muscle spasm (Chronic) GERD (gastroesophageal reflux disease) (Chronic) Rheumatoid arthritis (Chronic) Insomnia (Chronic) BPH (benign prostatic hyperplasia) (Chronic) Right groin pain (Chronic) Appetite loss (Chronic) Inflammatory arthritis (Chronic) NSTEMI (non-ST elevated myocardial infarction) (Chronic) Abnormal EKG (Chronic) Abnormal echocardiogram (Chronic) Left ventricular hypokinesis (Chronic) Leg pain, bilateral (Chronic) Edema (Chronic) Medical History: Medical History (Last Updated 08/06/20 @ 15:34 by Kim Kraus) Atherosclerotic heart disease of [place] coronary artery without angina pectoris (Chronic) I25.10 Abnormal EKG (Chronic) R94.31 Abnormal echocardiogram (Chronic) R93.1 Left ventricular hypokinesis (Chronic) I51.89 Leg pain, bilateral (Chronic) M79.604, M79.605 Edema (Chronic) R60.9 H/o finger stitches Left index H/o three feet of intestines removed Hemorrhoids K64.9 PAT (paroxysmal atrial tachycardia) I47.1 SVT (supraventricular tachycardia) I47.1 Back pain M54.9 Rheumatoid arthritis M06.9 Allergies No Known Allergies Allergy (Verified 08/12/20 10:35) Home Medications: Ambulatory Orders Medication Instructions Recorded methotrexate sodium 2.5 mg tablet 20 mg PO JONES@0600 01/29/19 Topiramate [Topamax] 25 mg PO BID 07/13/20 Metoprolol Tartrate [Lopressor 12.5 mg PO DAILY 07/18/20 (beta santiago)] Tamsulosin HCl [Flomax] 0.4 mg PO DAILY@1800 07/18/20 Folic Acid 1 mg PO DAILY 08/02/20 Amiodarone HCl [Cordarone] 200 mg PO BID 08/10/20 Aspirin [Aspirin, Baby] 81 mg PO DAILY@0800 #0 08/10/20 Atorvastatin Calcium [Lipitor] 40 mg PO QHS 08/10/20 Clopidogrel Bisulfate [Plavix] 75 mg PO DAILY 08/10/20 Mirtazapine 15 mg PO QHS 08/12/20 Acetaminophen [Tylenol] 650 mg PO 08/17/20 Apixaban [Eliquis] 5 mg PO BID 08/17/20 Ketorolac Tromethamine [Acular LS] 1 drp EACH EYE 08/17/20 Oxycodone HCl/Acetaminophen 1 tablet PO Q6H PRN PRN 08/17/20 [Percocet 5-325] Prednisolone Acetate/Pf 1 drp EACH EYE 08/17/20 [Prednisolone Acet 1% Eye Drop] Sennosides [Senna] 8.6 mg PO BID 08/17/20 Sulfasalazine [Azulfidine] 500 mg PO TID 08/17/20 cycloBENZAPRine HCl [Flexeril] 5 mg PO TID PRN 08/17/20 traZODone [Desyrel] 50 mg PO QHS 08/17/20 Surgical History: Surgical History (Last Updated 08/06/20 @ 15:33 by Kim Kraus) History of coronary artery stent placement (Chronic) Onset Date: 08/06/20 Z95.5 Successful PCI on OM2 with GAGE. 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 Garcia on 08/06/2020 H/O colonoscopy Z98.890 H/O umbilical hernia repair Z98.890, Z87.19 S/P appendectomy Z90.49 S/P cataract surgery Z98.49 Bilateral S/P hemorrhoidectomy Z98.890, Z87.19 S/P inguinal hernia repair Z98.890, Z87.19 bilateral S/P laparoscopic cholecystectomy Z90.49 S/P left colectomy Z90.49 S/P rotator cuff repair Z98.890 Bilateral S/P vasectomy Z98.52 Surgical History: adenoidectomy, angioplasty - Stent., appendectomy, cataract - Bilateral., cholecystectomy - Laparoscopic., colectomy - Left., herniorrhaphy - Umbilical, Inguinal., rotator cuff repair - Bilateral., - - Hemorrhoidectomy, Vasectomy. Psychiatric History: No pertinent psych hx Lives: Alone Smoking Status: Former smoker Tobacco Use: Non-smoker Alcohol: None Drugs: None - *Family History Maternal Family History: Family History (Last Reviewed 08/07/20 @ 12:31 by MARTIN Staley) Father CVA (cerebral vascular accident) Brother CAD (coronary artery disease) Mother CVA (cerebral vascular accident) Grandfather Cancer History Items: No pertinent history Paternal Family History: Family History (Last Reviewed 08/07/20 @ 12:31 by MARTIN Staley) Father CVA (cerebral vascular accident) Brother CAD (coronary artery disease) Mother CVA (cerebral vascular accident) Grandfather Cancer History Items: No pertinent history Review of Systems Constitutional: Reports: Weakness. Denies: Chills, Fever, Weight Change HEENT: Denies: Head Aches, Sinus Congestion, Sinus Drainage Cardiovascular: Denies: Chest Pain, Palpitations Respiratory: Denies: Cough, Shortness of breath at rest, Sputum production Gastrointestinal: Denies: Abdominal Pain, Nausea, Vomiting Genitourinary: Denies: Dysuria Musculoskeletal: Denies: Joint Pain, Joint Tenderness Skin: Denies: Rash, Wounds Neurological: Denies: Numbness, Tingling, Focal weakness Psychiatric: Denies: Anxiety, Depression, Homicidal Ideations, Suicidal Ideations Hematologic/ Lymphatic: Denies: Easy Bruising, Easy Bleeding VTE Information - Inpt Only VTE Present on Admission: No VTE Mechan Device Prophylaxis: Knee High BIA Hose VTE Pharm Prophylaxis ordered?: No Reason prophylaxis not ordered:: Treatment Not Indicated Patient Problems: Active and Suspected Problems (Last Updated 08/06/20 @ 15:34 by Kim Kraus) Syncope (Acute) Debility (Acute) - Physical Exam Vitals/I&O's: Vital Signs Temp Pulse Resp BP Pulse Ox 97.3 F L 78 14 114/69 98 08/17/20 16:30 08/17/20 16:30 08/17/20 16:30 08/17/20 16:30 08/17/20 16:30 Oxygen Delivery Method Room Air Weight: 53.977 kg Body Mass Index (BMI) 21.0 General: Alert, Oriented x3, Cooperative HEENT: Atraumatic, PERRLA, EOMI, Normocephalic Neck: Supple, No JVD, Negative Carotid Bruits Lungs: Clear to auscultation, Normal air movement Cardiovascular: Regular rate, No murmurs Abdomen: Bowel Sounds Present, Soft, Non Tender Extremities: No edema, Capillary Refill Less than 3 Seconds Skin: No rashes, No breakdown Musculoskeletal: No Tenderness to Palpation of Joints or Extremities Neurological: Cranial nerves II-XII grossly intact Psych/Mental Status: Normal Affect, Appropriate Current Medications Acetaminophen (Acetaminophen 325 Mg Tablet) 650 mg PO Q4H PRN PRN PRN Reason: Pain 1-10 or Fever Amiodarone HCl (Amiodarone 200 Mg Tablet) 200 mg PO BID PATRICE Last Admin: 08/17/20 18:25 Dose: 200 mg Documented by: Apixaban (Apixaban 2.5 Mg Tablet) 5 mg PO BID [facility] Last Admin: 08/17/20 18:25 Dose: 5 mg Documented by: Aspirin (Aspirin 81 Mg Tab.Chew) 81 mg PO DAILY@0800 [facility] Atorvastatin Calcium (Atorvastatin Calcium 40 Mg Tablet) 40 mg PO QHS [facility] Calamine/Phenol (Menthol/Lanolin/Calamine/Znox 113 Gm Tube) 1 applic TOPICAL 0600,2200 [facility]; Protocol Clopidogrel Bisulfate (Clopidogrel Bisulfate 75 Mg Tablet) 75 mg PO DAILY [facility] Cyclobenzaprine HCl (Cyclobenzaprine Hcl 10 Mg Tablet) 5 mg PO TID PRN PRN Reason: MUSCLE SPASM Folic Acid (Folic Acid 1 Mg Tablet) 1 mg PO DAILYCM [facility] Methotrexate (Methotrexate 2.5 Mg Tablet) 20 mg PO JONES@0600 [facility] Metoprolol Tartrate (Metoprolol Tartrate 25 Mg Tablet) 12.5 mg PO DAILY [facility] Mirtazapine (Mirtazapine 15 Mg Tablet) 15 mg PO QHS [facility] Oxycodone HCl (Oxycodone 5 Mg Tablet) 5 mg PO Q6H PRN PRN PRN Reason: Pain Score 6-10 Senna (Senna Tablet) 1 tablet PO BID [facility] Last Admin: 08/17/20 18:25 Dose: 1 tablet Documented by: Sulfasalazine (Sulfasalazine 500 Mg Tablet) 500 mg PO TIDCM [facility] Tamsulosin HCl (Tamsulosin Hcl 0.4 Mg Capsule) 0.4 mg PO DAILY@1800 [facility] Last Admin: 08/17/20 18:25 Dose: 0.4 mg Documented by: Topiramate (Topiramate 25 Mg Tablet) 25 mg PO BID [facility] Last Admin: 08/17/20 18:25 Dose: 25 mg Documented by: Trazodone HCl (Trazodone 50 Mg Tablet) 50 mg PO QHS [facility] Assessment/Plan All Active Problems (Last Updated 08/06/20 @ 15:34 by Kim Kraus) Left groin pain (Acute) Syncope (Acute) Debility (Acute) SVT (supraventricular tachycardia) (Acute) Scrotal pain (Acute) Right hip joint effusion (Acute) Fever (Acute) Fever (Acute) Recurrent umbilical hernia (Resolved) 79 year old male with below past medical history hospitalized for syncope, thought secondary to arrhythmia, complicated by 100% occluded LAD, Cardiothoracic surgery did not recommend CABG, admitted to TCU with debility, here for rehabilitation, strengthening, prior to discharge home alone. * Debility - PT/OT. * Pain - Tylenol 1000MG Q6H PRN pain (1-5), Oxycodone 5MG Q6H PRN pain (6-10). * Bowel - Miralax 17GM daily, Senokot 1 tablet BID, MOM 30ML daily PRN, Dulcolax 10MG daily PRN. * Adult immunization - Administer Prevnar 13, Pneumovax 23, Fluzone, COVID19 vaccine as appropriate. * DVT prophylaxis - Not necessary, already anticoagulated. * Syncope - Event Monitor. * Atrial fibrillation - Metoprolol 12.5MG BID, Amiodarone 200MG BID, Eliquis 5MG BID. * Coronary Artery Disease - Metoprolol 12.5MG BID, Plavix 75MG daily, Aspirin 81MG daily. * Hyperlipidemia - Atorvastatin 40MG QHS. * Muscle spasm - Flexeril 5MG TID PRN. * Skin irritation - Calmoseptine topical BID. * Rheumatoid Arthritis - MTX 20MG per week, Sulfasalazine 500MG TIDCM. * Depression/Appetite loss - Mirtazapine 15MG QHS, stable chronic watermaster use, GDR not recommended. * Migraine - Topamax 25MG BID. * Insomnia - Trazodone 50MG QHS, stable chronic watermaster use, GDR not recommended. * BPH - Tamsulosin 0.4MG daily.
[2020-08-17 21:00] VITALS: BP 104/58; PULSE 78
[2020-08-17] MEDS: Mirtazapine 15 MG Tablet PO (21:08)
[2020-08-17] MEDS: Atorvastatin Calcium 40 MG Tablet PO (21:08)
[2020-08-17] MEDS: oxyCODONE 5 MG Tablet PO (21:08)
[2020-08-17] MEDS: sulfaSALAzine 500 MG Tablet PO (21:08)
[2020-08-17] MEDS: Menthol/Lanolin/Calamine/Znox 113 GM Tube 1 APPLIC TOPICAL (21:10)
[2020-08-17] MEDS: traZODone 50 MG Tablet PO (23:13)
[2020-08-18 05:00] VITALS: BP 118/68; PULSE 88; RESP 16; TEMP 37.2; O2SAT 98
[2020-08-18 05:34] LABS: Absolute Lymphocyte Count 1.06 X10^3/uL (0.83-4.51); Basophil# 0.03 X10^3/uL; Basophil% 0.5 % (0-1); Eosinophil# 0.16 X10^3/uL; Eosinophils% 2.6 % (0-5); Hematocrit 35.8 % (40-54); Hemoglobin 11.4 g/dL (13.0-16.5); Lymphocyte # 1.06 X10^3/ul (4.0); Lymphocyte % 17.1 % (19-41); Mean Corp Hgb Conc 31.8 g/dL (32-36); Mean Corpuscular Hgb 30.3 pg (27.0-32.0); Mean Corpuscular Volume 95.2 fL (80-94); Mean Platelet Vol. 9.3 fl (6.2-12.0); Monocyte# 0.91 X10^3/uL; Monocyte% 14.7 % (0-10); NRBC Flagged by Analyzer 0 % (0-5); Neutrophil # 4.02 X10^3/uL (2.7-7.7); Neutrophil % 64.6 % (47-70); Platelet Count 225 K/mm3 (150-450); RBC Distribution Width CV 18.1 % (11.6-14.6); RBC Distribution Width SD 63.1 fl (35.1-43.9); Red Blood Count 3.76 M/mm3 (4.6-6.2); White Blood Count 6.2 K/mm3 (4.4-11.0)
[2020-08-18 05:54] LABS: Anion Gap 5 (5-15); BUN 13 mg/dL (7-18); BUN/Creat Ratio 19.1 RATIO (10-20); Calcium,Total 8.5 mg/dL (8.5-10.1); Chloride 107 mmol/L (98-107); Creatinine, Serum 0.68 mg/dL (0.70-1.30); EST Glomerular Filtration Rate 120 mL/min (>60); Est Glom Filt Rate - Afr Amer 145 mL/min (>60); Estimated Creatinine Clearance 47.23 ml/min; Glucose 96 mg/dL (74-106); Potassium 3.9 mmol/L (3.5-5.1); Sodium Level 140 mmol/L (136-145)
[2020-08-18 06:04] VITALS: BP 118/68; PULSE 88
[2020-08-18] MEDS: Senna Tablet 1 TABLET PO ×2 (06:04→17:22)
[2020-08-18] MEDS: Metoprolol Tartrate 25 MG Tablet 12.5 MG PO (06:04)
[2020-08-18] MEDS: Amiodarone 200 MG Tablet PO ×2 (06:04→17:22)
[2020-08-18] MEDS: APIXABAN 2.5 MG TABLET 5 MG PO ×2 (06:04→17:22)
[2020-08-18] MEDS: Clopidogrel Bisulfate 75 MG Tablet PO (06:04)
[2020-08-18] MEDS: Topiramate 25 MG Tablet PO ×2 (06:05→17:22)
[2020-08-18] MEDS: oxyCODONE 5 MG Tablet PO ×2 (06:08→17:21)
[2020-08-18] MEDS: Menthol/Lanolin/Calamine/Znox 113 GM Tube 1 APPLIC TOPICAL ×2 (06:10→23:29)
[2020-08-18] MEDS: sulfaSALAzine 500 MG Tablet PO ×3 (07:43→17:22)
[2020-08-18] MEDS: Aspirin 81 MG TAB.CHEW PO (07:43)
[2020-08-18] MEDS: Folic Acid 1 MG Tablet PO (07:43)
[2020-08-18] MEDS: Acetaminophen 500 MG Tablet 1000 MG PO ×2 (10:41→20:41)
[2020-08-18 13:49] VITALS: BP 97/56; PULSE 65; RESP 17; TEMP 36.9; O2SAT 98
--- NOTE | 2020-08-18 14:13 | NURSING ---
Called pt's daughter and updated her.
--- NOTE | 2020-08-18 14:32 | CHAPLAIN ---
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; pt admits that I've been through a lot; pt expresses being tired and unable to sleep; pt welcomes visit but wants to keep it short today; prayer and presence given
--- NOTE | 2020-08-18 15:38 | NURSING ---
Pt discussed code status with mental health social worker and changed his code status to DNRCC-A with intubation. New DNR form signed and new wrist band applied.
--- NOTE | 2020-08-18 17:04 | PCM.PN.RX ---
<Erica Balbuena - Last Filed: 08/18/20 17:04> Progress Note - Pharmacy Subjective: TCU Admission Objective: Allergies No Known Allergies Allergy (Verified 08/12/20 10:35) Current Medications Generic Name Dose Route Start Last Admin Trade Name Quentinq PRN Reason Stop Dose Admin Acetaminophen 1,000 mg 08/17/20 20:29 08/18/20 10:41 Acetaminophen 500 Mg Tablet PO 1,000 mg Q6H PRN PRN Administration Pain Score 1-5 Amiodarone HCl 200 mg 08/17/20 18:00 08/18/20 06:04 Amiodarone 200 Mg Tablet PO 200 mg BID PATRICE Administration Apixaban 5 mg 08/17/20 18:00 08/18/20 06:04 Apixaban 2.5 Mg Tablet PO 5 mg BID PATRICE Administration Aspirin 81 mg 08/18/20 08:00 08/18/20 07:43 Aspirin 81 Mg Tab.Chew PO 81 mg DAILY@0800 PATRICE Administration Atorvastatin Calcium 40 mg 08/17/20 22:00 08/17/20 21:08 Atorvastatin Calcium 40 Mg Tablet PO 40 mg QHS PATRICE Administration Bisacodyl 10 mg 08/17/20 20:25 Bisacodyl 5 Mg Tablet PO DAILY PRN Constipation Calamine/Phenol 1 applic 08/17/20 22:00 08/18/20 06:10 Menthol/Lanolin/Calamine/Znox 113 Gm Tube TOPICAL 1 applic 0600,2200 PATRICE Administration Protocol Clopidogrel Bisulfate 75 mg 08/18/20 06:00 08/18/20 06:04 Clopidogrel Bisulfate 75 Mg Tablet PO 75 mg DAILY PATRICE Administration Cyclobenzaprine HCl 5 mg 08/17/20 17:01 Cyclobenzaprine Hcl 10 Mg Tablet PO TID PRN MUSCLE SPASM Folic Acid 1 mg 08/18/20 08:00 08/18/20 07:43 Folic Acid 1 Mg Tablet PO 1 mg DAILYCM PATRICE Administration Magnesium Hydroxide 30 ml 08/17/20 20:25 Magnesium Hydroxide 30 Ml Udc PO DAILY PRN Constipation Methotrexate 20 mg 08/23/20 06:00 Methotrexate 2.5 Mg Tablet PO JONES@0600 PATRICE Metoprolol Tartrate 12.5 mg 08/18/20 06:00 08/18/20 06:04 Metoprolol Tartrate 25 Mg Tablet PO 12.5 mg DAILY PATRICE Administration Mirtazapine 15 mg 08/17/20 22:00 08/17/20 21:08 Mirtazapine 15 Mg Tablet PO 15 mg QHS PATRICE Administration Nutritional Formula (Lactose Free) 120 ml 08/18/20 17:00 Ensure Enlive 120 Ml Liquid PO 4X/DAY PATRICE Oxycodone HCl 5 mg 08/17/20 17:14 08/18/20 06:08 Oxycodone 5 Mg Tablet PO 5 mg Q6H PRN PRN Administration Pain Score 6-10 Polyethylene Glycol 17 gm 08/18/20 06:00 08/18/20 06:10 Polyethylene Glycol 3350 17 Gm Packet PO Not Given DAILY [facility] Senna 1 tablet 08/17/20 18:00 08/18/20 06:04 Senna Tablet PO 1 tablet BID PATRICE Administration Sulfasalazine 500 mg 08/17/20 22:00 08/18/20 12:38 Sulfasalazine 500 Mg Tablet PO 500 mg TIDCM PATRICE Administration Tamsulosin HCl 0.4 mg 08/17/20 18:00 08/17/20 18:25 Tamsulosin Hcl 0.4 Mg Capsule PO 0.4 mg DAILY@1800 [facility] Administration Topiramate 25 mg 08/17/20 18:00 08/18/20 06:05 Topiramate 25 Mg Tablet PO 25 mg BID PATRICE Administration Trazodone HCl 50 mg 08/17/20 22:00 08/17/20 23:13 Trazodone 50 Mg Tablet PO 50 mg QHS PATRICE Administration Problem List (Last Updated 08/06/20 @ 15:34 by Kim Kraus) PSVT (paroxysmal supraventricular tachycardia) (Chronic) Syncope (Acute) Coronary artery disease (Chronic) Debility (Acute) Lumbar spinal stenosis (Chronic) Atrial fibrillation with rapid ventricular response (Chronic) Muscle spasm (Chronic) GERD (gastroesophageal reflux disease) (Chronic) Rheumatoid arthritis (Chronic) Insomnia (Chronic) Appetite loss (Chronic) Vital Signs Temp Pulse Resp BP Pulse Ox 98.4 F 65 17 97/56 L 98 08/18/20 13:49 08/18/20 13:49 08/18/20 13:49 08/18/20 13:49 08/18/20 13:49 Oxygen Delivery Method Room Air Weight: 53.977 kg Body Mass Index (BMI) 21.0 Sodium 140 mmol/L (136-145) 08/18/20 05:15 Potassium 3.9 mmol/L (3.5-5.1) 08/18/20 05:15 Chloride 107 mmol/L (98-107) 08/18/20 05:15 Carbon Dioxide 28.0 mmol/L (21.0-32.0) 08/18/20 05:15 Anion Gap 5 (5-15) 08/18/20 05:15 BUN 13 mg/dL (7-18) 08/18/20 05:15 Creatinine 0.68 mg/dL (0.70-1.30) L 08/18/20 05:15 Est GFR (MDRD) Af Amer 145 mL/min (>60) 08/18/20 05:15 Est GFR (MDRD) Non-Af 120 mL/min (>60) 08/18/20 05:15 BUN/Creatinine Ratio 19.1 RATIO (10-20) 08/18/20 05:15 Glucose 96 mg/dL (74-106) 08/18/20 05:15 Assessment/Plan: 1. Pain: acetaminophen 1000mg PO Q6H PRN pain (1-5) and oxycodone 5mg PO Q4H PRN pain (6-10). Please continue to monitor for increased pain, PRN usage, constipation, and respiratory depression. *2. Atrial fibrillation/CAD: metoprolol 12.5mg PO daily, amiodarone 200mg PO BID, clopidogrel 75mg PO daily, aspirin 81mg PO DAILYCM and apixaban 5mg PO BID. Please continue to monitor HR (last 65 bpm), BP (last 97/56 mmHg), hemoglobin (last 11.4 g/dL), S/S of bleeding, and potassium (last 3.0 mmol/L). Please consider adding hold parameters to metoprolol due to recent BP of 97/59. Thanks. 3. Hyperlipidemia: atorvastatin 40mg PO QHS. Please continue to monitor lipid panel (last 08/05/20) and for muscle pain. 4. Muscle spasm: cyclobenzaprine 5mg PO TID PRN muscle spasm. Please continue to monitor for muscle spasms, PRN usage, drowsiness, and anticholinergic side effects. 5. Rheumatoid arthritis: methotrexate 20mg PO weekly, folic acid 1mg PO daily, and sulfasalazine 500mg PO BIDCM. Please continue to monitor LFTs, serum creatinine (last 0.68 mg/dL), platelets (last 225 K/mm3), S/S of infection, and muscle strength. 6. BPH: tamsulosin 0.4mg PO daily. Please continue to monitor for reductions of S/S of BPH and BP. Psychotropic Medications: 1. Appetite loss: mirtazapine 15mg PO QHS. Please see physician note regarding GDR. Please continue to monitor for changes in appetite and mental status. 2. Migraine: topiramate 25mg PO BID. Please continue to monitor for mental status changes, serum creatinine (last 0.68 mg/dL) and electrolytes. 3. Insomnia: trazodone 50mg PO QHS. Please see physician note regarding GDR. Please continue to monitor for mental status changes, orthostatic hypotension and insomnia. Unnecessary Medications: None Bowel Regimen: Miralax 17gm PO daily, senna 1T PO BID, MOM 30mL PO daily PRN constipation and bisacodyl 10mg PO daily PRN constipation. Please continue to monitor for constipation and PRN usage. Date of Note:: 08/18/20 - Provider Comments Provider responsibility: Provider responsible to enter orders to implement recommendations <Yogesh eLbron Chi - Last Filed: 08/18/20 20:11> Progress Note - Pharmacy Subjective: [] Objective: Allergies No Known Allergies Allergy (Verified 08/12/20 10:35) Current Medications Generic Name Dose Route Start Last Admin Trade Name Freq PRN Reason Stop Dose Admin Acetaminophen 1,000 mg 08/17/20 20:29 08/18/20 10:41 Acetaminophen 500 Mg Tablet PO 1,000 mg Q6H PRN PRN Administration Pain Score 1-5 Amiodarone HCl 200 mg 08/17/20 18:00 08/18/20 17:22 Amiodarone 200 Mg Tablet PO 200 mg BID PATRICE Administration Apixaban 5 mg 08/17/20 18:00 08/18/20 17:22 Apixaban 2.5 Mg Tablet PO 5 mg BID PATRICE Administration Aspirin 81 mg 08/18/20 08:00 08/18/20 07:43 Aspirin 81 Mg Tab.Chew PO 81 mg DAILY@0800 PATRICE Administration Atorvastatin Calcium 40 mg 08/17/20 22:00 08/17/20 21:08 Atorvastatin Calcium 40 Mg Tablet PO 40 mg QHS PATRICE Administration Bisacodyl 10 mg 03/22/21 20:25 Bisacodyl 5 Mg Tablet PO DAILY PRN Constipation Calamine/Phenol 1 applic 08/17/20 22:00 08/18/20 06:10 Menthol/Lanolin/Calamine/Znox 113 Gm Tube TOPICAL 1 applic 0600,2200 [facility] Administration Protocol Clopidogrel Bisulfate 75 mg 08/18/20 06:00 08/18/20 06:04 Clopidogrel Bisulfate 75 Mg Tablet PO 75 mg DAILY [facility] Administration Cyclobenzaprine HCl 5 mg 08/17/20 17:01 Cyclobenzaprine Hcl 10 Mg Tablet PO TID PRN MUSCLE SPASM Folic Acid 1 mg 08/18/20 08:00 08/18/20 07:43 Folic Acid 1 Mg Tablet PO 1 mg DAILYCM [facility] Administration Magnesium Hydroxide 30 ml 08/17/20 20:25 Magnesium Hydroxide 30 Ml Udc PO DAILY PRN Constipation Methotrexate 20 mg 08/23/20 06:00 Methotrexate 2.5 Mg Tablet PO JONES@0600 [facility] Metoprolol Tartrate 12.5 mg 08/18/20 06:00 08/18/20 06:04 Metoprolol Tartrate 25 Mg Tablet PO 12.5 mg DAILY [facility] Administration Mirtazapine 15 mg 08/17/20 22:00 08/17/20 21:08 Mirtazapine 15 Mg Tablet PO 15 mg QHS [facility] Administration Nutritional Formula (Lactose Free) 120 ml 08/18/20 17:00 08/18/20 17:18 Ensure Enlive 120 Ml Liquid PO 120 ml 4X/DAY [facility] Administration Oxycodone HCl 5 mg 08/17/20 17:14 08/18/20 17:21 Oxycodone 5 Mg Tablet PO 5 mg Q6H PRN PRN Administration Pain Score 6-10 Polyethylene Glycol 17 gm 08/18/20 06:00 08/18/20 06:10 Polyethylene Glycol 3350 17 Gm Packet PO Not Given DAILY [facility] Senna 1 tablet 08/17/20 18:00 08/18/20 17:22 Senna Tablet PO 1 tablet BID PATRICE Administration Sulfasalazine 500 mg 08/17/20 22:00 08/18/20 17:22 Sulfasalazine 500 Mg Tablet PO 500 mg TIDCM PATRICE Administration Tamsulosin HCl 0.4 mg 08/17/20 18:00 08/18/20 17:22 Tamsulosin Hcl 0.4 Mg Capsule PO 0.4 mg DAILY@1800 PATRICE Administration Topiramate 25 mg 08/17/20 18:00 08/18/20 17:22 Topiramate 25 Mg Tablet PO 25 mg BID PATRICE Administration Trazodone HCl 50 mg 08/17/20 22:00 08/17/20 23:13 Trazodone 50 Mg Tablet PO 50 mg QHS PATRICE Administration Problem List (Last Updated 08/06/20 @ 15:34 by Kim Kraus) PSVT (paroxysmal supraventricular tachycardia) (Chronic) Syncope (Acute) Coronary artery disease (Chronic) Debility (Acute) Lumbar spinal stenosis (Chronic) Atrial fibrillation with rapid ventricular response (Chronic) Muscle spasm (Chronic) GERD (gastroesophageal reflux disease) (Chronic) Rheumatoid arthritis (Chronic) Insomnia (Chronic) Appetite loss (Chronic) Vital Signs Temp Pulse Resp BP Pulse Ox 98.4 F 65 17 97/56 L 98 08/18/20 13:49 08/18/20 13:49 08/18/20 13:49 08/18/20 13:49 08/18/20 13:49 Oxygen Delivery Method Room Air Weight: 53.977 kg Body Mass Index (BMI) 21.0 Sodium 140 mmol/L (136-145) 08/18/20 05:15 Potassium 3.9 mmol/L (3.5-5.1) 08/18/20 05:15 Chloride 107 mmol/L (98-107) 08/18/20 05:15 Carbon Dioxide 28.0 mmol/L (21.0-32.0) 08/18/20 05:15 Anion Gap 5 (5-15) 08/18/20 05:15 BUN 13 mg/dL (7-18) 08/18/20 05:15 Creatinine 0.68 mg/dL (0.70-1.30) L 08/18/20 05:15 Est GFR (MDRD) Af Amer 145 mL/min (>60) 08/18/20 05:15 Est GFR (MDRD) Non-Af 120 mL/min (>60) 08/18/20 05:15 BUN/Creatinine Ratio 19.1 RATIO (10-20) 08/18/20 05:15 Glucose 96 mg/dL (74-106) 08/18/20 05:15 Assessment/Plan: Psychotropic Medications: Unnecessary Medications: Bowel Regimen: - Provider Comments Provider responsibility: Provider responsible to enter orders to implement recommendations Provider Comments to Recommendations by Pharmacy: Agree
[2020-08-18] MEDS: Tamsulosin HCl 0.4 MG Capsule PO (17:22)
[2020-08-18] MEDS: Mirtazapine 15 MG Tablet PO (23:28)
[2020-08-18] MEDS: Atorvastatin Calcium 40 MG Tablet PO (23:28)
[2020-08-18] MEDS: traZODone 50 MG Tablet PO (23:28)
[2020-08-19 05:46] VITALS: BP 116/60; PULSE 87
[2020-08-19] MEDS: Clopidogrel Bisulfate 75 MG Tablet PO (05:46)
[2020-08-19] MEDS: APIXABAN 2.5 MG TABLET 5 MG PO ×2 (05:46→17:28)
[2020-08-19] MEDS: Senna Tablet 1 TABLET PO ×2 (05:46→17:28)
[2020-08-19] MEDS: Topiramate 25 MG Tablet PO ×2 (05:46→17:28)
[2020-08-19] MEDS: Metoprolol Tartrate 25 MG Tablet 12.5 MG PO (05:46)
[2020-08-19 05:47] VITALS: BP 116/60; PULSE 87; RESP 17; TEMP 36.3; O2SAT 97
[2020-08-19] MEDS: Amiodarone 200 MG Tablet PO ×2 (05:47→17:28)
[2020-08-19] MEDS: Menthol/Lanolin/Calamine/Znox 113 GM Tube 1 APPLIC TOPICAL ×2 (05:48→20:40)
[2020-08-19] MEDS: oxyCODONE 5 MG Tablet PO ×2 (05:50→20:43)
[2020-08-19] MEDS: Aspirin 81 MG TAB.CHEW PO (08:27)
[2020-08-19] MEDS: sulfaSALAzine 500 MG Tablet PO ×3 (08:27→17:28)
[2020-08-19] MEDS: Folic Acid 1 MG Tablet PO (08:27)
[2020-08-19] MEDS: cycloBENZAPRine HCl 10 MG Tablet 5 MG PO (08:31)
[2020-08-19] MEDS: Acetaminophen 500 MG Tablet 1000 MG PO (08:31)
[2020-08-19 10:00] VITALS: PULSE 64; RESP 18; O2SAT 98
[2020-08-19 13:43] VITALS: BP 100/55; PULSE 74; RESP 16; TEMP 36.3; O2SAT 97
--- NOTE | 2020-08-19 15:32 | CASEMGMT ---
Social Work Palliative Care Screen tool completed by Dr. Lebron, indicating Palliative Care consult. [facility] consulted. Screening tool and patient demographics faxed to [facility]. Jamal GRAHAM, CALIN
[2020-08-19] MEDS: Tamsulosin HCl 0.4 MG Capsule PO (17:28)
[2020-08-19] MEDS: Mirtazapine 15 MG Tablet PO (20:38)
[2020-08-19] MEDS: Atorvastatin Calcium 40 MG Tablet PO (20:38)
[2020-08-19] MEDS: traZODone 50 MG Tablet PO (23:05)
[2020-08-20 05:00] VITALS: BP 114/59; PULSE 76; RESP 16; TEMP 36.8; O2SAT 97
[2020-08-20] MEDS: Amiodarone 200 MG Tablet PO ×2 (06:06→16:59)
[2020-08-20] MEDS: Senna Tablet 1 TABLET PO ×2 (06:06→16:59)
[2020-08-20] MEDS: Topiramate 25 MG Tablet PO ×2 (06:06→16:59)
[2020-08-20] MEDS: Menthol/Lanolin/Calamine/Znox 113 GM Tube 1 APPLIC TOPICAL ×2 (06:07→20:57)
[2020-08-20] MEDS: oxyCODONE 5 MG Tablet PO ×2 (06:07→16:58)
[2020-08-20] MEDS: Clopidogrel Bisulfate 75 MG Tablet PO (06:07)
[2020-08-20] MEDS: APIXABAN 2.5 MG TABLET 5 MG PO ×2 (06:08→16:59)
[2020-08-20 06:12] VITALS: BP 114/59; PULSE 76
[2020-08-20] MEDS: Metoprolol Tartrate 25 MG Tablet 12.5 MG PO (06:12)
[2020-08-20] MEDS: Aspirin 81 MG TAB.CHEW PO (08:50)
[2020-08-20] MEDS: Folic Acid 1 MG Tablet PO (08:50)
[2020-08-20] MEDS: sulfaSALAzine 500 MG Tablet PO ×3 (08:50→16:59)
[2020-08-20 14:03] VITALS: BP 101/57; PULSE 70; RESP 14; TEMP 36.3; O2SAT 97
[2020-08-20] MEDS: Tamsulosin HCl 0.4 MG Capsule PO (17:00)
[2020-08-20] MEDS: traZODone 50 MG Tablet PO (20:56)
[2020-08-20] MEDS: Mirtazapine 15 MG Tablet PO (20:58)
[2020-08-20] MEDS: Atorvastatin Calcium 40 MG Tablet PO (20:58)
[2020-08-20 22:00] VITALS: RESP 15
[2020-08-21 05:00] VITALS: BP 124/67; PULSE 84; RESP 15; TEMP 36.9; O2SAT 95
[2020-08-21] MEDS: APIXABAN 2.5 MG TABLET 5 MG PO ×2 (06:15→17:08)
[2020-08-21] MEDS: oxyCODONE 5 MG Tablet PO ×3 (06:15→20:44)
[2020-08-21 06:16] VITALS: BP 124/67; PULSE 84
[2020-08-21] MEDS: Amiodarone 200 MG Tablet PO ×2 (06:16→17:07)
[2020-08-21] MEDS: Metoprolol Tartrate 25 MG Tablet 12.5 MG PO (06:16)
[2020-08-21] MEDS: Clopidogrel Bisulfate 75 MG Tablet PO (06:16)
[2020-08-21] MEDS: Senna Tablet 1 TABLET PO ×2 (06:17→17:07)
[2020-08-21] MEDS: Topiramate 25 MG Tablet PO ×2 (06:17→17:07)
[2020-08-21] MEDS: Aspirin 81 MG TAB.CHEW PO (08:38)
[2020-08-21] MEDS: sulfaSALAzine 500 MG Tablet PO ×3 (08:38→17:07)
[2020-08-21] MEDS: Folic Acid 1 MG Tablet PO (08:38)
[2020-08-21] MEDS: Menthol/Lanolin/Calamine/Znox 113 GM Tube 1 APPLIC TOPICAL ×2 (08:38→21:21)
[2020-08-21] MEDS: Acetaminophen 500 MG Tablet 1000 MG PO (11:48)
[2020-08-21 12:57] VITALS: PULSE 96; RESP 16; O2SAT 96
[2020-08-21 13:51] VITALS: BP 96/47; PULSE 63; RESP 16; TEMP 37.2; O2SAT 93
[2020-08-21] MEDS: Tamsulosin HCl 0.4 MG Capsule PO (17:07)
[2020-08-21] MEDS: Mirtazapine 15 MG Tablet PO (21:20)
[2020-08-21] MEDS: Atorvastatin Calcium 40 MG Tablet PO (21:20)
[2020-08-21] MEDS: traZODone 50 MG Tablet PO (23:41)
[2020-08-22 06:31] VITALS: BP 135/77; PULSE 80; RESP 16; TEMP 36.8; O2SAT 95
[2020-08-22 06:41] VITALS: BP 135/77; PULSE 80
[2020-08-22] MEDS: Metoprolol Tartrate 25 MG Tablet 12.5 MG PO (06:41)
[2020-08-22] MEDS: Clopidogrel Bisulfate 75 MG Tablet PO (06:41)
[2020-08-22] MEDS: APIXABAN 2.5 MG TABLET 5 MG PO ×2 (06:41→17:33)
[2020-08-22] MEDS: Senna Tablet 1 TABLET PO ×2 (06:41→17:33)
[2020-08-22] MEDS: Amiodarone 200 MG Tablet PO ×2 (06:41→17:33)
[2020-08-22] MEDS: Topiramate 25 MG Tablet PO ×2 (06:42→17:33)
[2020-08-22] MEDS: Menthol/Lanolin/Calamine/Znox 113 GM Tube 1 APPLIC TOPICAL ×2 (06:44→21:55)
[2020-08-22] MEDS: oxyCODONE 5 MG Tablet PO ×3 (06:46→23:37)
[2020-08-22] MEDS: Folic Acid 1 MG Tablet PO (08:34)
[2020-08-22] MEDS: sulfaSALAzine 500 MG Tablet PO ×3 (08:34→17:33)
[2020-08-22] MEDS: Aspirin 81 MG TAB.CHEW PO (08:34)
[2020-08-22] MEDS: Acetaminophen 500 MG Tablet 1000 MG PO (08:34)
--- NOTE | 2020-08-22 10:00 | NURSING ---
dr cummings updated, pt stated LT ankle pain 12/05. 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 pt resting in recliner chair, call light in reach. new order medrol dose romy.
[2020-08-22] MEDS: MethylPREDNISolone DosePak 4 MG BOX PO ×3 (11:46→21:51)
[2020-08-22 13:19] VITALS: BP 90/49; PULSE 63; RESP 12; TEMP 36.4; O2SAT 95
--- NOTE | 2020-08-22 14:30 | NURSING ---
charged heart monitor sensor & replaced chest piece per order Q5days.
[2020-08-22] MEDS: Tamsulosin HCl 0.4 MG Capsule PO (17:33)
[2020-08-22] MEDS: Atorvastatin Calcium 40 MG Tablet PO (21:50)
[2020-08-22] MEDS: Mirtazapine 15 MG Tablet PO (21:50)
--- NOTE | 2020-08-22 22:01 | PCA ---
Pt did not want to get cleaned up this evening, stating he prefers to wash in the morning. 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
[2020-08-22] MEDS: traZODone 50 MG Tablet PO (23:37)
[2020-08-23 06:01] VITALS: BP 120/77; PULSE 77; RESP 16; TEMP 36.8; O2SAT 95
[2020-08-23 06:04] VITALS: BP 120/77; PULSE 77
[2020-08-23] MEDS: Metoprolol Tartrate 25 MG Tablet 12.5 MG PO (06:04)
[2020-08-23] MEDS: APIXABAN 2.5 MG TABLET 5 MG PO ×2 (06:04→17:05)
[2020-08-23] MEDS: Senna Tablet 1 TABLET PO ×2 (06:05→17:05)
[2020-08-23] MEDS: Amiodarone 200 MG Tablet PO ×2 (06:05→17:04)
[2020-08-23] MEDS: Methotrexate 2.5 MG Tablet 20 MG PO (06:05)
[2020-08-23] MEDS: Menthol/Lanolin/Calamine/Znox 113 GM Tube 1 APPLIC TOPICAL ×2 (06:05→21:27)
[2020-08-23] MEDS: Topiramate 25 MG Tablet PO ×2 (06:05→17:06)
[2020-08-23] MEDS: Clopidogrel Bisulfate 75 MG Tablet PO (06:05)
[2020-08-23] MEDS: oxyCODONE 5 MG Tablet PO ×2 (08:17→17:03)
[2020-08-23] MEDS: Folic Acid 1 MG Tablet PO (08:18)
[2020-08-23] MEDS: Aspirin 81 MG TAB.CHEW PO (08:18)
[2020-08-23] MEDS: MethylPREDNISolone DosePak 4 MG BOX PO ×4 (08:18→17:05)
[2020-08-23] MEDS: sulfaSALAzine 500 MG Tablet PO ×3 (08:18→17:04)
[2020-08-23 13:56] VITALS: BP 103/57; PULSE 74; RESP 16; TEMP 37.2; O2SAT 97
[2020-08-23] MEDS: Tamsulosin HCl 0.4 MG Capsule PO (17:05)
[2020-08-23] MEDS: cycloBENZAPRine HCl 10 MG Tablet 5 MG PO (19:58)
[2020-08-23] MEDS: Mirtazapine 15 MG Tablet PO (21:28)
[2020-08-23] MEDS: Atorvastatin Calcium 40 MG Tablet PO (21:28)
[2020-08-23] MEDS: traZODone 50 MG Tablet PO (23:30)
[2020-08-24 05:44] VITALS: BP 132/63; PULSE 74; RESP 16; TEMP 36.8; O2SAT 97
[2020-08-24] MEDS: Menthol/Lanolin/Calamine/Znox 113 GM Tube 1 APPLIC TOPICAL ×2 (05:46→20:41)
[2020-08-24 05:49] VITALS: PULSE 74
[2020-08-24] MEDS: oxyCODONE 5 MG Tablet PO ×3 (05:49→18:13)
[2020-08-24] MEDS: Metoprolol Tartrate 25 MG Tablet 12.5 MG PO (05:49)
[2020-08-24] MEDS: APIXABAN 2.5 MG TABLET 5 MG PO ×2 (05:49→17:28)
[2020-08-24] MEDS: Amiodarone 200 MG Tablet PO ×2 (05:49→17:29)
[2020-08-24] MEDS: Topiramate 25 MG Tablet PO ×2 (05:50→17:28)
[2020-08-24] MEDS: Senna Tablet 1 TABLET PO ×2 (05:50→17:31)
[2020-08-24] MEDS: Clopidogrel Bisulfate 75 MG Tablet PO (05:50)
[2020-08-24] MEDS: MethylPREDNISolone DosePak 4 MG BOX PO ×4 (07:55→23:24)
[2020-08-24] MEDS: Folic Acid 1 MG Tablet PO (07:55)
[2020-08-24] MEDS: sulfaSALAzine 500 MG Tablet PO ×3 (07:55→17:30)
[2020-08-24] MEDS: Aspirin 81 MG TAB.CHEW PO (07:55)
[2020-08-24] MEDS: cycloBENZAPRine HCl 10 MG Tablet 5 MG PO ×2 (07:55→17:36)
[2020-08-24 13:59] VITALS: BP 111/64; PULSE 70; RESP 12; TEMP 36.3; O2SAT 95
--- NOTE | 2020-08-24 15:06 | CHAPLAIN ---
Type of Pastoral Visit ___ Initial Visit _x__ Follow-up Visit ___ On-call Visit ___ General Patient Visit ___ Spiritual Assessment ___ Family Conference ___ Bereavement ___ Rapid Response ___ Code Blue ___ Other (describe below) Pastoral Care Referral From _x__ Patient ___ Family ___ Nurse ___ Physician ___ Monument Installer ___ Restrike Hammer Operator ___ Other (describe below) Sacrament/Intervention _x__ Active listening ___ Anointing ___ Voodoo ___ Bereavement ___ Communion ___ Enriqueta exploration ___ ___ Life review _x__ Prayer ___ Reconciliation ___ Sacrament of Sick _x__ Supportive presence ___ Wedding ___ Other (describe below) Pastoral Comments
[2020-08-24] MEDS: Tamsulosin HCl 0.4 MG Capsule PO (17:31)
[2020-08-24] MEDS: Atorvastatin Calcium 40 MG Tablet PO (20:41)
[2020-08-24] MEDS: traZODone 100 MG Tablet PO (23:24)
[2020-08-24] MEDS: Mirtazapine 15 MG Tablet PO (23:24)
[2020-08-25] MEDS: Menthol/Lanolin/Calamine/Znox 113 GM Tube 1 APPLIC TOPICAL ×2 (04:48→20:51)
[2020-08-25 04:49] VITALS: BP 124/65; PULSE 74
[2020-08-25] MEDS: Metoprolol Tartrate 25 MG Tablet 12.5 MG PO (04:49)
[2020-08-25] MEDS: Amiodarone 200 MG Tablet PO ×2 (04:49→17:57)
[2020-08-25] MEDS: Clopidogrel Bisulfate 75 MG Tablet PO (04:49)
[2020-08-25] MEDS: Senna Tablet 1 TABLET PO ×2 (04:49→17:58)
[2020-08-25 04:50] VITALS: BP 124/65; PULSE 74; RESP 17; TEMP 36.7; O2SAT 95
[2020-08-25] MEDS: Topiramate 25 MG Tablet PO ×2 (04:50→17:58)
[2020-08-25] MEDS: APIXABAN 2.5 MG TABLET 5 MG PO ×2 (04:50→17:58)
[2020-08-25 05:53] LABS: Absolute Lymphocyte Count 0.71 X10^3/uL (0.83-4.51); Absolute Neutrophil Count 2.9 X10^3/uL (2.0-7.7); Basophil# 0.01 X10^3/uL; Basophil% 0.3 % (0-1); Eosinophil# 0.01 X10^3/uL; Eosinophils% 0.3 % (0-5); Hematocrit 38.8 % (40-54); Lymphocyte # 0.71 X10^3/ul (4.0); Lymphocyte % 18.5 % (19-41); Mean Corp Hgb Conc 30.9 g/dL (32-36); Mean Corpuscular Hgb 29.4 pg (27.0-32.0); Mean Corpuscular Volume 95.1 fL (80-94); Mean Platelet Vol. 9.5 fl (6.2-12.0); Monocyte# 0.19 X10^3/uL; NRBC Flagged by Analyzer 0 % (0-5); Neutrophil # 2.89 X10^3/uL (2.7-7.7); Neutrophil % 75.4 % (47-70); Platelet Count 207 K/mm3 (150-450); RBC Distribution Width CV 17.4 % (11.6-14.6); RBC Distribution Width SD 61.1 fl (35.1-43.9); Red Blood Count 4.08 M/mm3 (4.6-6.2); White Blood Count 3.8 K/mm3 (4.4-11.0)
[2020-08-25 06:22] LABS: Anion Gap 5 (5-15); BUN 18 mg/dL (7-18); BUN/Creat Ratio 22.2 RATIO (10-20); Calcium,Total 8.4 mg/dL (8.5-10.1); Chloride 109 mmol/L (98-107); Creatinine, Serum 0.81 mg/dL (0.70-1.30); EST Glomerular Filtration Rate 98 mL/min (>60); Est Glom Filt Rate - Afr Amer 119 mL/min (>60); Estimated Creatinine Clearance 58.31 ml/min; Glucose 128 mg/dL (74-106); Potassium 3.6 mmol/L (3.5-5.1); Sodium Level 140 mmol/L (136-145)
[2020-08-25] MEDS: Aspirin 81 MG TAB.CHEW PO (08:44)
[2020-08-25] MEDS: MethylPREDNISolone DosePak 4 MG BOX PO ×3 (08:44→20:48)
[2020-08-25] MEDS: sulfaSALAzine 500 MG Tablet PO ×3 (08:44→17:58)
[2020-08-25] MEDS: Folic Acid 1 MG Tablet PO (08:44)
[2020-08-25] MEDS: oxyCODONE 5 MG Tablet PO ×2 (08:48→18:05)
[2020-08-25] MEDS: Acetaminophen 500 MG Tablet 1000 MG PO (14:33)
[2020-08-25 15:17] VITALS: PULSE 70; O2SAT 96
[2020-08-25 15:42] VITALS: BP 102/58; PULSE 75; RESP 18; TEMP 36.8; O2SAT 96
[2020-08-25] MEDS: Tamsulosin HCl 0.4 MG Capsule PO (17:57)
[2020-08-25] MEDS: Atorvastatin Calcium 40 MG Tablet PO (20:48)
[2020-08-25] MEDS: traZODone 100 MG Tablet PO (23:16)
[2020-08-25] MEDS: Mirtazapine 15 MG Tablet PO (23:16)
[2020-08-26 05:40] LABS: Absolute Lymphocyte Count 1.08 X10^3/uL (0.83-4.51); Basophil# 0.01 X10^3/uL; Basophil% 0.2 % (0-1); Eosinophil# 0.02 X10^3/uL; Eosinophils% 0.4 % (0-5); Hematocrit 37.2 % (40-54); Hemoglobin 11.7 g/dL (13.0-16.5); Lymphocyte # 1.08 X10^3/ul (4.0); Mean Corp Hgb Conc 31.5 g/dL (32-36); Mean Corpuscular Hgb 29.8 pg (27.0-32.0); Mean Corpuscular Volume 94.7 fL (80-94); Mean Platelet Vol. 8.9 fl (6.2-12.0); Monocyte# 0.42 X10^3/uL; Monocyte% 9.3 % (0-10); NRBC Flagged by Analyzer 0 % (0-5); Neutrophil # 2.96 X10^3/uL (2.7-7.7); Neutrophil % 65.9 % (47-70); Platelet Count 213 K/mm3 (150-450); RBC Distribution Width CV 17.5 % (11.6-14.6); RBC Distribution Width SD 61.1 fl (35.1-43.9); Red Blood Count 3.93 M/mm3 (4.6-6.2); White Blood Count 4.5 K/mm3 (4.4-11.0)
[2020-08-26 05:53] LABS: Anion Gap 4 (5-15); BUN 19 mg/dL (7-18); BUN/Creat Ratio 23.5 RATIO (10-20); Calcium,Total 8.5 mg/dL (8.5-10.1); Chloride 108 mmol/L (98-107); Creatinine, Serum 0.81 mg/dL (0.70-1.30); EST Glomerular Filtration Rate 98 mL/min (>60); Est Glom Filt Rate - Afr Amer 119 mL/min (>60); Estimated Creatinine Clearance 57.82 ml/min; Glucose 103 mg/dL (74-106); Potassium 3.9 mmol/L (3.5-5.1); Sodium Level 141 mmol/L (136-145)
[2020-08-26 06:21] VITALS: BP 122/63; PULSE 71; RESP 17; TEMP 36.6; O2SAT 97
[2020-08-26] MEDS: Metoprolol Tartrate 25 MG Tablet 12.5 MG PO (06:21)
[2020-08-26] MEDS: Senna Tablet 1 TABLET PO ×2 (06:21→17:48)
[2020-08-26] MEDS: APIXABAN 2.5 MG TABLET 5 MG PO ×2 (06:22→17:44)
[2020-08-26] MEDS: Clopidogrel Bisulfate 75 MG Tablet PO (06:22)
[2020-08-26] MEDS: Amiodarone 200 MG Tablet PO ×2 (06:22→17:44)
[2020-08-26] MEDS: Topiramate 25 MG Tablet PO ×2 (06:22→17:44)
[2020-08-26] MEDS: Menthol/Lanolin/Calamine/Znox 113 GM Tube 1 APPLIC TOPICAL ×2 (06:23→22:45)
[2020-08-26] MEDS: oxyCODONE 5 MG Tablet PO ×2 (06:25→12:25)
[2020-08-26] MEDS: Aspirin 81 MG TAB.CHEW PO (08:49)
[2020-08-26] MEDS: MethylPREDNISolone DosePak 4 MG BOX PO ×2 (08:49→22:47)
[2020-08-26] MEDS: sulfaSALAzine 500 MG Tablet PO ×3 (08:49→17:44)
[2020-08-26] MEDS: Folic Acid 1 MG Tablet PO (08:49)
[2020-08-26 10:00] VITALS: PULSE 82; RESP 16; O2SAT 97
[2020-08-26 13:56] VITALS: BP 88/55; PULSE 68; RESP 17; TEMP 36.9; O2SAT 94
--- NOTE | 2020-08-26 16:17 | CASEMGMT ---
Social Work IDT met with patient and dtr for care plan meeting. Discussed patient's progress in therapy and nursing. Pt is Sasha for most ADLs, adlib in room. IDT agreeable for pt to DC when insurance issues LCD. Encouraged pt to be adlib to be comfortable without having assistance. Pt requesting HHC at DC. Pt will DC home with heart monitor. SW to order [facility] PT/OT/SN. No DME needs. Dtr works but will check in on patient as able. Explained [facility] insurance NRD 08/28 and anticipate [facility]. SW to continue to follow. Susan Miller, FLUME WORKER HUMANITIES COORDINATOR
[2020-08-26] MEDS: Tamsulosin HCl 0.4 MG Capsule PO (17:44)
[2020-08-26] MEDS: Atorvastatin Calcium 40 MG Tablet PO (22:47)
[2020-08-26] MEDS: Mirtazapine 15 MG Tablet PO (22:47)
--- NOTE | 2020-08-26 22:50 | NURSING ---
Pt requesting Trazodone at 2330.
[2020-08-26] MEDS: traZODone 100 MG Tablet PO (23:29)
[2020-08-27 06:34] VITALS: BP 113/62; PULSE 73; RESP 16; TEMP 37.3; O2SAT 96
[2020-08-27 06:35] LABS: Absolute Neutrophil Count 2.9 X10^3/uL (2.0-7.7); Basophil# 0.01 X10^3/uL; Basophil% 0.2 % (0-1); Eosinophil# 0.03 X10^3/uL; Eosinophils% 0.7 % (0-5); Hematocrit 36.8 % (40-54); Hemoglobin 11.7 g/dL (13.0-16.5); Lymphocyte % 23.3 % (19-41); Mean Corp Hgb Conc 31.8 g/dL (32-36); Mean Corpuscular Volume 94.4 fL (80-94); Mean Platelet Vol. 9.8 fl (6.2-12.0); Monocyte# 0.37 X10^3/uL; Monocyte% 8.6 % (0-10); NRBC Flagged by Analyzer 0 % (0-5); Neutrophil # 2.88 X10^3/uL (2.7-7.7); Platelet Count 229 K/mm3 (150-450); RBC Distribution Width CV 17.7 % (11.6-14.6); RBC Distribution Width SD 61.2 fl (35.1-43.9); White Blood Count 4.3 K/mm3 (4.4-11.0)
[2020-08-27] MEDS: Menthol/Lanolin/Calamine/Znox 113 GM Tube 1 APPLIC TOPICAL ×2 (06:36→23:59)
[2020-08-27] MEDS: Senna Tablet 1 TABLET PO ×2 (06:37→17:57)
[2020-08-27] MEDS: Clopidogrel Bisulfate 75 MG Tablet PO (06:37)
[2020-08-27 06:39] VITALS: BP 113/62; PULSE 73
[2020-08-27] MEDS: Amiodarone 200 MG Tablet PO ×2 (06:39→17:56)
[2020-08-27] MEDS: Metoprolol Tartrate 25 MG Tablet 12.5 MG PO (06:39)
[2020-08-27] MEDS: APIXABAN 2.5 MG TABLET 5 MG PO ×2 (06:39→17:56)
[2020-08-27] MEDS: Topiramate 25 MG Tablet PO ×2 (06:40→17:57)
[2020-08-27] MEDS: oxyCODONE 5 MG Tablet PO ×3 (06:42→23:58)
[2020-08-27 07:05] LABS: Anion Gap 4 (5-15); BUN 20 mg/dL (7-18); BUN/Creat Ratio 24.9 RATIO (10-20); Calcium,Total 8.4 mg/dL (8.5-10.1); Chloride 109 mmol/L (98-107); EST Glomerular Filtration Rate 99 mL/min (>60); Est Glom Filt Rate - Afr Amer 120 mL/min (>60); Estimated Creatinine Clearance 58.54 ml/min; Glucose 98 mg/dL (74-106); Sodium Level 142 mmol/L (136-145)
[2020-08-27] MEDS: Acetaminophen 500 MG Tablet 1000 MG PO ×2 (09:17→19:58)
[2020-08-27] MEDS: sulfaSALAzine 500 MG Tablet PO ×3 (09:24→17:56)
[2020-08-27] MEDS: Folic Acid 1 MG Tablet PO (09:24)
[2020-08-27] MEDS: Aspirin 81 MG TAB.CHEW PO (09:24)
--- NOTE | 2020-08-27 12:58 | MDS.RN ---
Information for the mds was obtained from review of the clinical record, interview of resident, staff, and direct observation of resident's care.
[2020-08-27 13:25] VITALS: BP 108/58; PULSE 65; RESP 16; TEMP 36.8; O2SAT 98
[2020-08-27] MEDS: Tamsulosin HCl 0.4 MG Capsule PO (17:56)
[2020-08-27] MEDS: traZODone 100 MG Tablet PO (23:58)
[2020-08-27] MEDS: Atorvastatin Calcium 40 MG Tablet PO (23:58)
[2020-08-27] MEDS: Mirtazapine 15 MG Tablet PO (23:59)
[2020-08-28 05:45] LABS: Absolute Lymphocyte Count 1.45 X10^3/uL (0.83-4.51); Absolute Neutrophil Count 1.6 X10^3/uL (2.0-7.7); Basophil# 0.02 X10^3/uL; Basophil% 0.6 % (0-1); Eosinophil# 0.12 X10^3/uL; Eosinophils% 3.3 % (0-5); Hematocrit 35.7 % (40-54); Lymphocyte # 1.45 X10^3/ul (4.0); Lymphocyte % 40.2 % (19-41); Mean Corp Hgb Conc 30.8 g/dL (32-36); Mean Corpuscular Hgb 29.6 pg (27.0-32.0); Mean Platelet Vol. 9.6 fl (6.2-12.0); Monocyte# 0.46 X10^3/uL; Monocyte% 12.7 % (0-10); NRBC Flagged by Analyzer 0 % (0-5); Neutrophil # 1.56 X10^3/uL (2.7-7.7); Neutrophil % 43.2 % (47-70); Platelet Count 203 K/mm3 (150-450); RBC Distribution Width CV 18.3 % (11.6-14.6); RBC Distribution Width SD 63.7 fl (35.1-43.9); Red Blood Count 3.72 M/mm3 (4.6-6.2); White Blood Count 3.6 K/mm3 (4.4-11.0)
[2020-08-28 05:57] LABS: Anion Gap 3 (5-15); BUN 19 mg/dL (7-18); BUN/Creat Ratio 25.3 RATIO (10-20); Calcium,Total 8.4 mg/dL (8.5-10.1); Chloride 107 mmol/L (98-107); Creatinine, Serum 0.75 mg/dL (0.70-1.30); EST Glomerular Filtration Rate 107 mL/min (>60); Est Glom Filt Rate - Afr Amer 130 mL/min (>60); Estimated Creatinine Clearance 46.83 ml/min; Glucose 85 mg/dL (74-106); Potassium 3.8 mmol/L (3.5-5.1); Sodium Level 141 mmol/L (136-145)
[2020-08-28 06:08] VITALS: BP 114/55; PULSE 63; RESP 18; TEMP 36.6; O2SAT 96
[2020-08-28] MEDS: oxyCODONE 5 MG Tablet PO ×3 (06:10→23:43)
[2020-08-28] MEDS: Acetaminophen 500 MG Tablet 1000 MG PO ×2 (06:10→20:52)
[2020-08-28] MEDS: APIXABAN 2.5 MG TABLET 5 MG PO ×2 (06:10→17:35)
[2020-08-28 06:11] VITALS: PULSE 63
[2020-08-28] MEDS: Topiramate 25 MG Tablet PO ×2 (06:11→17:35)
[2020-08-28] MEDS: Clopidogrel Bisulfate 75 MG Tablet PO (06:11)
[2020-08-28] MEDS: Amiodarone 200 MG Tablet PO ×2 (06:11→17:35)
[2020-08-28] MEDS: Metoprolol Tartrate 25 MG Tablet 12.5 MG PO (06:11)
[2020-08-28] MEDS: Senna Tablet 1 TABLET PO ×2 (06:11→17:35)
[2020-08-28] MEDS: Menthol/Lanolin/Calamine/Znox 113 GM Tube 1 APPLIC TOPICAL ×2 (06:11→20:55)
[2020-08-28] MEDS: Folic Acid 1 MG Tablet PO (08:23)
[2020-08-28] MEDS: Aspirin 81 MG TAB.CHEW PO (08:23)
[2020-08-28] MEDS: sulfaSALAzine 500 MG Tablet PO ×3 (08:23→17:35)
[2020-08-28 10:00] VITALS: RESP 16
[2020-08-28 13:39] VITALS: BP 93/47; PULSE 63; RESP 16; TEMP 36.8; O2SAT 97
[2020-08-28] MEDS: Tamsulosin HCl 0.4 MG Capsule PO (17:35)
[2020-08-28 17:39] VITALS: BP 112/57; PULSE 68
[2020-08-28] MEDS: Mirtazapine 15 MG Tablet PO (20:53)
[2020-08-28] MEDS: Atorvastatin Calcium 40 MG Tablet PO (20:54)
[2020-08-28] MEDS: traZODone 100 MG Tablet PO (23:44)
[2020-08-29 06:50] VITALS: BP 135/68; PULSE 73; RESP 16; TEMP 36.9; O2SAT 97
[2020-08-29 06:51] VITALS: BP 135/68; PULSE 73
[2020-08-29] MEDS: Topiramate 25 MG Tablet PO ×2 (06:51→18:01)
[2020-08-29] MEDS: APIXABAN 2.5 MG TABLET 5 MG PO ×2 (06:51→18:02)
[2020-08-29] MEDS: Metoprolol Tartrate 25 MG Tablet 12.5 MG PO (06:51)
[2020-08-29] MEDS: Senna Tablet 1 TABLET PO ×2 (06:51→18:02)
[2020-08-29] MEDS: Amiodarone 200 MG Tablet PO ×2 (06:51→18:01)
[2020-08-29] MEDS: oxyCODONE 5 MG Tablet PO ×2 (06:51→18:06)
[2020-08-29] MEDS: Clopidogrel Bisulfate 75 MG Tablet PO (06:52)
[2020-08-29] MEDS: Menthol/Lanolin/Calamine/Znox 113 GM Tube 1 APPLIC TOPICAL ×2 (06:55→22:03)
--- NOTE | 2020-08-29 07:02 | NURSING ---
Pt heart monitor sensor battery beeping, removed with patch and recharged per instructions. New patch applied this am after sensor fully charged.
[2020-08-29 07:26] LABS: Absolute Lymphocyte Count 1.76 X10^3/uL (0.83-4.51); Absolute Neutrophil Count 1.5 X10^3/uL (2.0-7.7); Basophil# 0.02 X10^3/uL; Basophil% 0.5 % (0-1); Eosinophil# 0.18 X10^3/uL; Eosinophils% 4.7 % (0-5); Hematocrit 40.9 % (40-54); Hemoglobin 12.7 g/dL (13.0-16.5); Lymphocyte # 1.76 X10^3/ul (4.0); Lymphocyte % 45.7 % (19-41); Mean Corp Hgb Conc 31.1 g/dL (32-36); Mean Corpuscular Hgb 29.8 pg (27.0-32.0); Mean Platelet Vol. 9.3 fl (6.2-12.0); Monocyte# 0.41 X10^3/uL; Monocyte% 10.6 % (0-10); NRBC Flagged by Analyzer 0 % (0-5); Neutrophil # 1.48 X10^3/uL (2.7-7.7); Neutrophil % 38.5 % (47-70); Platelet Count 223 K/mm3 (150-450); RBC Distribution Width CV 18.6 % (11.6-14.6); RBC Distribution Width SD 64.5 fl (35.1-43.9); Red Blood Count 4.26 M/mm3 (4.6-6.2); White Blood Count 3.9 K/mm3 (4.4-11.0)
[2020-08-29 07:57] LABS: Anion Gap 4 (5-15); BUN 16 mg/dL (7-18); BUN/Creat Ratio 20.1 RATIO (10-20); Calcium,Total 8.7 mg/dL (8.5-10.1); Chloride 108 mmol/L (98-107); EST Glomerular Filtration Rate 100 mL/min (>60); Est Glom Filt Rate - Afr Amer 121 mL/min (>60); Estimated Creatinine Clearance 58.54 ml/min; Glucose 92 mg/dL (74-106); Potassium 3.9 mmol/L (3.5-5.1); Sodium Level 140 mmol/L (136-145)
[2020-08-29] MEDS: sulfaSALAzine 500 MG Tablet PO ×3 (08:51→18:02)
[2020-08-29] MEDS: Aspirin 81 MG TAB.CHEW PO (08:52)
[2020-08-29] MEDS: Folic Acid 1 MG Tablet PO (08:52)
[2020-08-29 16:00] VITALS: BP 97/51; PULSE 72; RESP 14; TEMP 36.1; O2SAT 96
[2020-08-29] MEDS: Tamsulosin HCl 0.4 MG Capsule PO (18:01)
[2020-08-29] MEDS: Acetaminophen 500 MG Tablet 1000 MG PO (20:19)
[2020-08-29] MEDS: cycloBENZAPRine HCl 10 MG Tablet 5 MG PO (20:19)
[2020-08-29 22:00] VITALS: RESP 15
[2020-08-29] MEDS: Atorvastatin Calcium 40 MG Tablet PO (22:00)
[2020-08-29] MEDS: Mirtazapine 15 MG Tablet PO (22:00)
--- NOTE | 2020-08-29 22:04 | NURSING ---
pt prefers to take his trazadone around 2330 and midnight. informed pt i would give to him @ that time
[2020-08-29] MEDS: traZODone 100 MG Tablet PO (23:44)
[2020-08-30] MEDS: oxyCODONE 5 MG Tablet PO ×3 (00:07→17:50)
[2020-08-30 05:00] VITALS: BP 118/55; PULSE 65; RESP 15; TEMP 36.7; O2SAT 96
[2020-08-30] MEDS: Amiodarone 200 MG Tablet PO ×2 (06:25→17:44)
[2020-08-30 06:26] VITALS: BP 118/55; PULSE 65
[2020-08-30] MEDS: Metoprolol Tartrate 25 MG Tablet 12.5 MG PO (06:26)
[2020-08-30] MEDS: Clopidogrel Bisulfate 75 MG Tablet PO (06:26)
[2020-08-30] MEDS: APIXABAN 2.5 MG TABLET 5 MG PO ×2 (06:26→17:45)
[2020-08-30] MEDS: Topiramate 25 MG Tablet PO ×2 (06:27→17:45)
[2020-08-30] MEDS: Senna Tablet 1 TABLET PO ×2 (06:27→17:44)
[2020-08-30] MEDS: Menthol/Lanolin/Calamine/Znox 113 GM Tube 1 APPLIC TOPICAL (06:35)
[2020-08-30] MEDS: Methotrexate 2.5 MG Tablet 20 MG PO (06:49)
[2020-08-30] MEDS: cycloBENZAPRine HCl 10 MG Tablet 5 MG PO ×2 (08:37→22:18)
[2020-08-30] MEDS: Aspirin 81 MG TAB.CHEW PO (08:42)
[2020-08-30] MEDS: sulfaSALAzine 500 MG Tablet PO ×3 (08:43→17:45)
[2020-08-30] MEDS: Folic Acid 1 MG Tablet PO (08:45)
[2020-08-30 11:41] VITALS: PULSE 71; RESP 16; O2SAT 98
[2020-08-30] MEDS: Acetaminophen 500 MG Tablet 1000 MG PO ×2 (11:57→22:18)
[2020-08-30 14:51] VITALS: BP 98/47; PULSE 66; RESP 16; TEMP 36.7; O2SAT 96
[2020-08-30] MEDS: Tamsulosin HCl 0.4 MG Capsule PO (17:44)
[2020-08-30] MEDS: Mirtazapine 15 MG Tablet PO (22:18)
[2020-08-30] MEDS: Atorvastatin Calcium 40 MG Tablet PO (22:18)
[2020-08-31] MEDS: oxyCODONE 5 MG Tablet PO ×4 (00:03→22:20)
[2020-08-31] MEDS: Menthol/Lanolin/Calamine/Znox 113 GM Tube 1 APPLIC TOPICAL ×3 (00:04→19:58)
[2020-08-31] MEDS: traZODone 100 MG Tablet PO (00:04)
[2020-08-31 05:00] VITALS: BP 120/57; PULSE 66; RESP 15; TEMP 36.8; O2SAT 96
[2020-08-31 06:22] VITALS: BP 120/57; PULSE 66
[2020-08-31] MEDS: Clopidogrel Bisulfate 75 MG Tablet PO (06:22)
[2020-08-31] MEDS: Metoprolol Tartrate 25 MG Tablet 12.5 MG PO (06:22)
[2020-08-31] MEDS: Amiodarone 200 MG Tablet PO ×2 (06:24→17:17)
[2020-08-31] MEDS: Topiramate 25 MG Tablet PO ×2 (06:24→17:17)
[2020-08-31] MEDS: Senna Tablet 1 TABLET PO ×2 (06:24→17:17)
[2020-08-31] MEDS: APIXABAN 2.5 MG TABLET 5 MG PO ×2 (06:24→17:17)
[2020-08-31] MEDS: cycloBENZAPRine HCl 10 MG Tablet 5 MG PO ×3 (06:29→22:22)
[2020-08-31] MEDS: Aspirin 81 MG TAB.CHEW PO (08:58)
[2020-08-31] MEDS: sulfaSALAzine 500 MG Tablet PO ×3 (08:58→17:16)
[2020-08-31] MEDS: Folic Acid 1 MG Tablet PO (08:58)
--- NOTE | 2020-08-31 10:50 | CASEMGMT ---
Addendum entered by Susan Miller 08/31/20 10:52: Notified [facility]. Original Note: Social Work Insurance issued LCD 09/02, DC 09/03. Spoke with pt and he is agreeable to DC. Pt requesting [facility]. Referral made for PT/OT/SN. No DME needs. Dtr to transport. Plan: DC home alone 09/03 with [facility] PT/OT/SN SANTOS Temple[place]W
[2020-08-31 14:29] VITALS: BP 104/59; PULSE 69; RESP 18; TEMP 36.8; O2SAT 97
[2020-08-31] MEDS: Tamsulosin HCl 0.4 MG Capsule PO (17:17)
--- NOTE | 2020-08-31 19:48 | PCM.DC ---
- Discharge Diagnoses Current Active Problems: Current Active and Chronic Problems (Last Updated 08/06/20 @ 15:34 by Kim Kraus) PSVT (paroxysmal supraventricular tachycardia) (Chronic) Syncope (Acute) Coronary artery disease (Chronic) Debility (Acute) Lumbar spinal stenosis (Chronic) Atrial fibrillation with rapid ventricular response (Chronic) Muscle spasm (Chronic) GERD (gastroesophageal reflux disease) (Chronic) Rheumatoid arthritis (Chronic) Insomnia (Chronic) Appetite loss (Chronic) You will use the following diet at home:: No restrictions, Regular Your food should be the consistency of: Regular Your liquids should be the consistency of: Regular/Thin Discharge Activity: Return to Normal Activity, May Shower, Use Walker Weight Bearing Status: Weight bearing as tolerated Call your doctor if you observe: Fever of 101 or Higher, Inability to urinate, Inability to have a bowel movement, Shortness of breath, Chest pain, Uncontrolled pain Allergies/Adverse Reactions: Allergies No Known Allergies Allergy (Verified 08/12/20 10:35) Medications to take at Discharge methotrexate sodium 2.5 mg tablet 20 mg PO JONES@0600 01/29/19 Topiramate [Topamax] 25 mg PO BID 07/13/20 Metoprolol Tartrate [Lopressor (beta santiago)] 12.5 mg PO DAILY 07/18/20 Tamsulosin HCl [Flomax] 0.4 mg PO DAILY@1800 07/18/20 Folic Acid 1 mg PO DAILY 08/02/20 Aspirin [Aspirin, Baby] 81 mg PO DAILY@0800 #0 08/10/20 Mirtazapine 15 mg PO QHS 08/12/20 Apixaban [Eliquis] 5 mg PO BID 08/17/20 Sulfasalazine [Azulfidine] 500 mg PO TID 08/17/20 Acetaminophen [Tylenol] 1,000 mg PO Q6H PRN PRN tablet 08/31/20 Amiodarone HCl [Cordarone] 200 mg PO BID #60 tablet 08/31/20 Atorvastatin Calcium [Lipitor] 40 mg PO QHS #30 tablet 08/31/20 Clopidogrel Bisulfate [Plavix] 75 mg PO DAILY #30 tablet 08/31/20 Menthol/Lanolin/Calamine/Znox [Calmoseptine Ointment] 1 applic TOPICAL 0600,2200 tube 08/31/20 Oxycodone [Oxyir] 5 mg PO Q6H PRN PRN 7 Days #28 tablet 08/31/20 Polyethylene Glycol 3350 [Miralax] 17 gm PO DAILY #30 packet 08/31/20 Senna [Senokot] 1 tablet PO BID #60 tablet 08/31/20 cycloBENZAPRine HCl [Flexeril] 5 mg PO TID PRN #90 tablet 08/31/20 traZODone [Desyrel] 100 mg PO QHS #30 tablet 08/31/20 The following prescriptions were given: Amiodarone HCl [Cordarone] 200 mg PO BID #60 tablet Transmission Status: Pending to [facility] #30 traZODone [Desyrel] 100 mg PO QHS #30 tablet Transmission Status: Pending to [facility] #30 cycloBENZAPRine HCl [Flexeril] 5 mg PO TID PRN #90 tablet PRN Reason: Muscle Spasm Transmission Status: Pending to [facility] #30 Atorvastatin Calcium [Lipitor] 40 mg PO QHS #30 tablet Transmission Status: Pending to [facility] #30 Polyethylene Glycol 3350 [Miralax] 17 gm PO DAILY #30 packet Transmission Status: Pending to [facility] #30 Oxycodone [Oxyir] 5 mg PO Q6H PRN PRN 7 Days #28 tablet PRN Reason: Pain Score 6-10 Transmission Status: Sent to [facility] #30 Clopidogrel Bisulfate [Plavix] 75 mg PO DAILY #30 tablet Transmission Status: Pending to [facility] #30 Senna [Senokot] 1 tablet PO BID #60 tablet Transmission Status: Pending to [facility] #30 Primary Care Physician: Gloria Hazel MD [Primary Care Provider] - Please follow up with your Primary Care Physician in: 1 week. Test Results: Test results from this visit will be discussed in further detail at your follow-up appointment, if applicable. Please Follow Up With: Radha Romero, PA When: 2 weeks. Proposed Discharge Date: 09/03/20
--- NOTE | 2020-08-31 19:50 | DS.PCM_ITS ---
Discharge Date and Diagnosis - Problem List Patient Problems: Active and Suspected Problems (Last Updated 08/06/20 @ 15:34 by Kim Kraus) Syncope (Acute) Debility (Acute) Date of Admission: 08/17/20 Date of Discharge: 09/03/20 - Primary Discharge Diagnosis Acute Problems: Active Problems (Last Updated 08/06/20 @ 15:34 by Kim Kraus) Syncope (Acute) Debility (Acute) - Secondary Discharge Diagnosis Chronic Problems: Chronic Problems (Last Updated 08/06/20 @ 15:34 by Kim Kraus) Left wrist pain (Chronic) Osteoarthritis of left knee (Chronic) PSVT (paroxysmal supraventricular tachycardia) (Chronic) Coronary artery disease (Chronic) Atherosclerotic heart disease of [place] coronary artery without angina pectoris (Chronic) History of coronary artery stent placement (Chronic 08/06/20) Successful PCI on OM2 with GAGE. Unsuccessful PCI of MACHINE BILLER of LAD per Dr. Garcia on 08/06/2020 Atrial fibrillation (Chronic) Lumbar spinal stenosis (Chronic) Atrial fibrillation with rapid ventricular response (Chronic) Muscle spasm (Chronic) GERD (gastroesophageal reflux disease) (Chronic) Rheumatoid arthritis (Chronic) Insomnia (Chronic) BPH (benign prostatic hyperplasia) (Chronic) Right groin pain (Chronic) Appetite loss (Chronic) Inflammatory arthritis (Chronic) NSTEMI (non-ST elevated myocardial infarction) (Chronic) Abnormal EKG (Chronic) Abnormal echocardiogram (Chronic) Left ventricular hypokinesis (Chronic) Leg pain, bilateral (Chronic) Edema (Chronic) Hospital Course and Treatment Imaging Results: 08/18/20 14:19 Diet: Regular - General Is pt able to select menu?: Yes Operations: None Procedures: None Summary of Care Provided: The patient is a 79 year old Male with below past medical history hospitalized for syncope, thought secondary to arrhythmia, complicated by 100% occluded LAD, Cardiothoracic surgery did not recommend CABG, admitted to TCU with debility, here for rehabilitation, strengthening, prior to discharge home alone. Discharge home alone, [facility] PT/OT/SN. Patient Problems: Active and Suspected Problems (Last Updated 08/06/20 @ 15:34 by Kim Kraus) Syncope (Acute) Debility (Acute) - Physical Exam Vitals/I&O's: Vital Signs Temp Pulse Resp BP Pulse Ox 98.3 F 69 18 104/59 L 97 04/05/21 14:29 08/31/20 14:29 08/31/20 14:29 08/31/20 14:29 08/31/20 14:29 Oxygen Delivery Method Room Air Weight: 53.524 kg Body Mass Index (BMI) 21.0 Intake and Output for Last 24 Hours 08/29/20 08/30/20 08/31/20 23:59 23:59 23:59 Intake Total 480 / 480 840 / 840 480 / 480 Balance 480 / 480 840 / 840 480 / 480 Current Medications Acetaminophen (Acetaminophen 500 Mg Tablet) 1,000 mg PO Q6H PRN PRN PRN Reason: Pain Score 1-5 Last Admin: 08/30/20 22:18 Dose: 1,000 mg Documented by: Amiodarone HCl (Amiodarone 200 Mg Tablet) 200 mg PO BID [facility] Last Admin: 08/31/20 17:17 Dose: 200 mg Documented by: Apixaban (Apixaban 2.5 Mg Tablet) 5 mg PO BID [facility] Last Admin: 08/31/20 17:17 Dose: 5 mg Documented by: Aspirin (Aspirin 81 Mg Tab.Chew) 81 mg PO DAILY@0800 [facility] Last Admin: 08/31/20 08:58 Dose: 81 mg Documented by: Atorvastatin Calcium (Atorvastatin Calcium 40 Mg Tablet) 40 mg PO QHS [facility] Last Admin: 08/30/20 22:18 Dose: 40 mg Documented by: Bisacodyl (Bisacodyl 5 Mg Tablet) 10 mg PO DAILY PRN PRN Reason: Constipation Calamine/Phenol (Menthol/Lanolin/Calamine/Znox 113 Gm Tube) 1 applic TOPICAL 0600,2200 [facility]; Protocol Last Admin: 08/31/20 06:30 Dose: 1 applic Documented by: Clopidogrel Bisulfate (Clopidogrel Bisulfate 75 Mg Tablet) 75 mg PO DAILY [facility] Last Admin: 08/31/20 06:22 Dose: 75 mg Documented by: Cyclobenzaprine HCl (Cyclobenzaprine Hcl 10 Mg Tablet) 5 mg PO TID PRN PRN Reason: MUSCLE SPASM Last Admin: 08/31/20 15:23 Dose: 5 mg Documented by: Folic Acid (Folic Acid 1 Mg Tablet) 1 mg PO DAILYCM [facility] Last Admin: 08/31/20 08:58 Dose: 1 mg Documented by: Magnesium Hydroxide (Magnesium Hydroxide 30 Ml Udc) 30 ml PO DAILY PRN PRN Reason: Constipation Methotrexate (Methotrexate 2.5 Mg Tablet) 20 mg PO JONES@0600 [facility] Last Admin: 08/30/20 06:49 Dose: 20 mg Documented by: Metoprolol Tartrate (Metoprolol Tartrate 25 Mg Tablet) 12.5 mg PO DAILY [facility] Last Admin: 08/31/20 06:22 Dose: 12.5 mg Documented by: Mirtazapine (Mirtazapine 15 Mg Tablet) 15 mg PO QHS [facility] Last Admin: 08/30/20 22:18 Dose: 15 mg Documented by: Nutritional Formula (Lactose Free) (Ensure Enlive 120 Ml Liquid) 120 ml PO 4X/DAY [facility] Last Admin: 08/31/20 17:16 Dose: 120 ml Documented by: Oxycodone HCl (Oxycodone 5 Mg Tablet) 5 mg PO Q6H PRN PRN PRN Reason: Pain Score 6-10 Last Admin: 08/31/20 15:21 Dose: 5 mg Documented by: Polyethylene Glycol (Polyethylene Glycol 3350 17 Gm Packet) 17 gm PO DAILY [facility] Last Admin: 08/31/20 06:24 Dose: Not Given Documented by: Senna (Senna Tablet) 1 tablet PO BID [facility] Last Admin: 08/31/20 17:17 Dose: 1 tablet Documented by: Sulfasalazine (Sulfasalazine 500 Mg Tablet) 500 mg PO TIDCM [facility] Last Admin: 08/31/20 17:16 Dose: 500 mg Documented by: Tamsulosin HCl (Tamsulosin Hcl 0.4 Mg Capsule) 0.4 mg PO DAILY@1800 [facility] Last Admin: 08/31/20 17:17 Dose: 0.4 mg Documented by: Topiramate (Topiramate 25 Mg Tablet) 25 mg PO BID [facility] Last Admin: 08/31/20 17:17 Dose: 25 mg Documented by: Trazodone HCl (Trazodone 100 Mg Tablet) 100 mg PO QHS [facility] Last Admin: 08/31/20 00:04 Dose: 100 mg Documented by: Discharge Diet: No Restrictions Discharge Activity: Return to Normal Activity, May Shower, Use Walker Weight Bearing Status: Weight bearing as tolerated Call your doctor if you observe: Fever of 101 or Higher, Inability to urinate, Inability to have a bowel movement, Shortness of breath, Chest pain, Uncontrolled pain Home Medications: Medications to take at Discharge methotrexate sodium 2.5 mg tablet 20 mg PO JONES@0600 01/29/19 Topiramate [Topamax] 25 mg PO BID 07/13/20 Metoprolol Tartrate [Lopressor (beta santiago)] 12.5 mg PO DAILY 07/18/20 Tamsulosin HCl [Flomax] 0.4 mg PO DAILY@1800 07/18/20 Folic Acid 1 mg PO DAILY 08/02/20 Aspirin [Aspirin, Baby] 81 mg PO DAILY@0800 #0 08/10/20 Mirtazapine 15 mg PO QHS 08/12/20 Apixaban [Eliquis] 5 mg PO BID 08/17/20 Sulfasalazine [Azulfidine] 500 mg PO TID 08/17/20 Acetaminophen [Tylenol] 1,000 mg PO Q6H PRN PRN tablet 08/31/20 Amiodarone HCl [Cordarone] 200 mg PO BID #60 tablet 08/31/20 Atorvastatin Calcium [Lipitor] 40 mg PO QHS #30 tablet 08/31/20 Clopidogrel Bisulfate [Plavix] 75 mg PO DAILY #30 tablet 08/31/20 Menthol/Lanolin/Calamine/Znox [Calmoseptine Ointment] 1 applic TOPICAL 0600,2200 tube 08/31/20 Oxycodone [Oxyir] 5 mg PO Q6H PRN PRN 7 Days #28 tablet 08/31/20 Polyethylene Glycol 3350 [Miralax] 17 gm PO DAILY #30 packet 08/31/20 Senna [Senokot] 1 tablet PO BID #60 tablet 08/31/20 cycloBENZAPRine HCl [Flexeril] 5 mg PO TID PRN #90 tablet 08/31/20 traZODone [Desyrel] 100 mg PO QHS #30 tablet 08/31/20 Following Prescriptions Were Given to Patient: Amiodarone HCl [Cordarone] 200 mg PO BID #60 tablet Transmission Status: Pending to [facility]30 traZODone [Desyrel] 100 mg PO QHS #30 tablet Transmission Status: Pending to [facility]30 cycloBENZAPRine HCl [Flexeril] 5 mg PO TID PRN #90 tablet PRN Reason: Muscle Spasm Transmission Status: Pending to [facility] Atorvastatin Calcium [Lipitor] 40 mg PO QHS #30 tablet Transmission Status: Pending to [facility] Polyethylene Glycol 3350 [Miralax] 17 gm PO DAILY #30 packet Transmission Status: Pending to [facility] Oxycodone [Oxyir] 5 mg PO Q6H PRN PRN 7 Days #28 tablet PRN Reason: Pain Score 6-10 Transmission Status: Sent to [facility] Clopidogrel Bisulfate [Plavix] 75 mg PO DAILY #30 tablet Transmission Status: Pending to [facility] Senna [Senokot] 1 tablet PO BID #60 tablet Transmission Status: Pending to [facility] Primary Care Physician: Gloria Hazel MD [Primary Care Provider] - Please follow up with your Primary Care Physician in: 1 week. Please Follow Up With: Radha Romero PA When: 2 weeks. Disposition: Home with Home Health Minutes spent on discharge:: 35 Patient Condition:: Stable Medical Necessity - Tobacco Use Smoking Status: Former smoker Tobacco Use: Non-smoker Meaningful Use Info Meaningful Use Diagnoses (Choose all that apply): None applicable
[2020-08-31] MEDS: Acetaminophen 500 MG Tablet 1000 MG PO (19:57)
[2020-08-31] MEDS: Atorvastatin Calcium 40 MG Tablet PO (20:00)
[2020-08-31] MEDS: Mirtazapine 15 MG Tablet PO (20:00)
[2020-08-31 20:06] VITALS: RESP 16
[2020-09-01] MEDS: traZODone 100 MG Tablet PO (00:11)
[2020-09-01 06:43] VITALS: BP 103/58; PULSE 79; RESP 18; TEMP 37.2; O2SAT 95
[2020-09-01 06:50] VITALS: BP 103/58; PULSE 79
[2020-09-01] MEDS: Clopidogrel Bisulfate 75 MG Tablet PO (06:50)
[2020-09-01] MEDS: Amiodarone 200 MG Tablet PO ×2 (06:50→17:09)
[2020-09-01] MEDS: Senna Tablet 1 TABLET PO ×2 (06:50→17:09)
[2020-09-01] MEDS: Metoprolol Tartrate 25 MG Tablet 12.5 MG PO (06:50)
[2020-09-01] MEDS: APIXABAN 2.5 MG TABLET 5 MG PO ×2 (06:51→17:09)
[2020-09-01] MEDS: Menthol/Lanolin/Calamine/Znox 113 GM Tube 1 APPLIC TOPICAL ×2 (06:51→20:09)
[2020-09-01] MEDS: Topiramate 25 MG Tablet PO ×2 (06:51→17:09)
[2020-09-01] MEDS: Acetaminophen 500 MG Tablet 1000 MG PO ×2 (06:57→20:06)
[2020-09-01] MEDS: oxyCODONE 5 MG Tablet PO ×3 (06:59→23:36)
[2020-09-01] MEDS: Aspirin 81 MG TAB.CHEW PO (08:58)
[2020-09-01] MEDS: Folic Acid 1 MG Tablet PO (08:58)
[2020-09-01] MEDS: sulfaSALAzine 500 MG Tablet PO ×3 (08:58→17:09)
[2020-09-01] MEDS: cycloBENZAPRine HCl 10 MG Tablet 5 MG PO ×2 (09:00→17:09)
[2020-09-01 09:10] VITALS: PULSE 63; RESP 18; O2SAT 96
--- NOTE | 2020-09-01 11:07 | NURSING ---
Contacted Dr. Barker's office about pt c/o wrist pain and swelling and therapy wanting to know when he can stop wearing the brace. Waiting for return call.
[2020-09-01 13:51] VITALS: BP 92/54; PULSE 69; RESP 16; TEMP 37.3; O2SAT 94
[2020-09-01] MEDS: Tamsulosin HCl 0.4 MG Capsule PO (17:09)
[2020-09-01] MEDS: Atorvastatin Calcium 40 MG Tablet PO (20:08)
[2020-09-01] MEDS: Mirtazapine 15 MG Tablet PO (20:08)
--- NOTE | 2020-09-01 20:20 | NURSING ---
Pt c/o more pain/edema to lt wrist/hand, edema to fingers noted, warm and mobile. Suggested pt elevate on pillow, pt states that doesn't seem to help. Medicated with Tylenol per request and ice pack placed to top of fingers and wrist.
[2020-09-02] MEDS: traZODone 100 MG Tablet PO ×2 (00:08→23:35)
[2020-09-02] MEDS: cycloBENZAPRine HCl 10 MG Tablet 5 MG PO ×3 (01:19→20:55)
[2020-09-02] MEDS: Menthol/Lanolin/Calamine/Znox 113 GM Tube 1 APPLIC TOPICAL ×2 (06:21→20:56)
[2020-09-02] MEDS: APIXABAN 2.5 MG TABLET 5 MG PO ×2 (06:22→17:08)
[2020-09-02] MEDS: Amiodarone 200 MG Tablet PO ×2 (06:22→17:08)
[2020-09-02 06:23] VITALS: BP 123/68; PULSE 86
[2020-09-02] MEDS: Metoprolol Tartrate 25 MG Tablet 12.5 MG PO (06:23)
[2020-09-02 06:25] VITALS: BP 123/62; PULSE 81; RESP 18; TEMP 37.1; O2SAT 96
[2020-09-02] MEDS: Clopidogrel Bisulfate 75 MG Tablet PO (06:25)
[2020-09-02] MEDS: Senna Tablet 1 TABLET PO ×2 (06:25→17:09)
[2020-09-02] MEDS: Topiramate 25 MG Tablet PO ×2 (06:25→17:09)
[2020-09-02] MEDS: oxyCODONE 5 MG Tablet PO ×3 (06:25→23:35)
[2020-09-02] MEDS: Acetaminophen 500 MG Tablet 1000 MG PO (06:26)
[2020-09-02] MEDS: Folic Acid 1 MG Tablet PO (08:05)
[2020-09-02] MEDS: Aspirin 81 MG TAB.CHEW PO (08:05)
[2020-09-02] MEDS: sulfaSALAzine 500 MG Tablet PO ×3 (08:05→17:08)
--- NOTE | 2020-09-02 11:04 | NURSING ---
c/o lt hand pain. lt hand knuckles red, edematous and warm to touch. Dr cummings saw him this AM & told him to f/u with [facility] New order for medrol dose romy per pt request
[2020-09-02] MEDS: MethylPREDNISolone DosePak 4 MG BOX PO ×3 (12:03→20:57)
[2020-09-02 12:18] VITALS: PULSE 73; RESP 16; O2SAT 97
[2020-09-02 13:23] VITALS: BP 100/51; PULSE 79; RESP 14; TEMP 37; O2SAT 96
[2020-09-02] MEDS: Tamsulosin HCl 0.4 MG Capsule PO (17:09)
[2020-09-02] MEDS: Atorvastatin Calcium 40 MG Tablet PO (20:55)
[2020-09-02] MEDS: Mirtazapine 15 MG Tablet PO (20:57)
[2020-09-03 06:31] VITALS: BP 104/55; PULSE 85; RESP 16; TEMP 36.2; O2SAT 95
[2020-09-03] MEDS: Topiramate 25 MG Tablet PO (06:31)
[2020-09-03] MEDS: Clopidogrel Bisulfate 75 MG Tablet PO (06:31)
[2020-09-03] MEDS: Amiodarone 200 MG Tablet PO (06:31)
[2020-09-03] MEDS: Senna Tablet 1 TABLET PO (06:31)
[2020-09-03] MEDS: Metoprolol Tartrate 25 MG Tablet 12.5 MG PO (06:31)
[2020-09-03] MEDS: oxyCODONE 5 MG Tablet PO (06:35)
[2020-09-03] MEDS: Menthol/Lanolin/Calamine/Znox 113 GM Tube 1 APPLIC TOPICAL (06:36)
[2020-09-03] MEDS: APIXABAN 2.5 MG TABLET 5 MG PO (06:41)
[2020-09-03] MEDS: Folic Acid 1 MG Tablet PO (08:58)
[2020-09-03] MEDS: Aspirin 81 MG TAB.CHEW PO (08:58)
[2020-09-03] MEDS: sulfaSALAzine 500 MG Tablet PO (08:59)
[2020-09-03] MEDS: MethylPREDNISolone DosePak 4 MG BOX PO (08:59)
[2020-09-03 10:00] VITALS: PULSE 72; RESP 16; O2SAT 97
[2020-09-03] MEDS: Acetaminophen 500 MG Tablet 1000 MG PO (10:50)
[2020-09-03 11:17] VITALS: BP 102/54; PULSE 72; RESP 16; TEMP 36.8; O2SAT 98
== END 2020-09-03 11:18 | disposition home health service (06) | DRG 312 ==
PROVIDERS: Admitting Provider Family Medicine Geriatric Medicine; PCP Family Medicine; Visit Provider Family Medicine Geriatric Medicine
DX: R55 Syncope and collapse (principal); I47.1 Supraventricular tachycardia; I25.10 Atherosclerotic heart disease of native coronary artery without angina pectoris; I25.82 Chronic total occlusion of coronary artery; E78.5 Hyperlipidemia, unspecified; N40.0 Benign prostatic hyperplasia without lower urinary tract symptoms; G43.909 Migraine, unspecified, not intractable, without status migrainosus; M06.9 Rheumatoid arthritis, unspecified; M62.838 Other muscle spasm; F32.9 Major depressive disorder, single episode, unspecified; K21.9 Gastro-esophageal reflux disease without esophagitis; M48.061 Spinal stenosis, lumbar region without neurogenic claudication; I25.2 Old myocardial infarction; Z79.02 Long term (current) use of antithrombotics/antiplatelets; Z79.01 Long term (current) use of anticoagulants; Z79.899 Other long term (current) drug therapy; Z87.891 Personal history of nicotine dependence; Z66 Do not resuscitate; Z79.82 Long term (current) use of aspirin
CPT/HCPCS: 36415; 80048; 85025; 97110; 97116; 97161; 97166; 97530; 97535; 97802; J8610

== ENCOUNTER 2020-09-05 12:12 | Emergency (ER) | payer MEDICARE, SELFPAY ==
[2020-08-17 16:30] VITALS: BMI 21.0
[2020-09-05 12:13] VITALS: BP 118/72; PULSE 83; RESP 15; TEMP 37.1; O2SAT 96; BMI 22.1
--- NOTE | 2020-09-05 12:30 | CT_ITS ---
STUDY: CT BRAIN WITHOUT CONTRAST REASON FOR EXAM: Male, 79 years old. head injury RADIATION DOSAGE (If Supplied By Facility): CTDIvol = ( 44.99 ) mGy, DLP = ( 812.98 ) mGycm TECHNIQUE: Transaxial CT imaging of the brain was performed without administration of intravenous contrast material. Individualized dose optimization techniques were used for this CT. COMPARISON: 08/12/2020 FINDINGS: Moderate size anterior left parietal scalp hematoma. Normal calvarium. There is mild cerebral atrophy with widening of the extra-axial spaces and ventricular dilatation. There are areas of decreased attenuation within the white matter tracts of the supratentorial brain, consistent with microvascular disease changes. Normal basal ganglia and thalami. Normal brainstem. Normal cerebellum. There is no intracranial hemorrhage. There are no findings of an acute ischemic infarction. Normal visualized paranasal sinuses. CT/Brain/Head without Contrast IMPRESSION: Moderate sized anterior left parietal scalp hematoma. No intracranial hemorrhage. Electronically Signed: Atlaf Benoit MD at 13:16 EDT Tel , Service support ,
--- NOTE | 2020-09-05 12:31 | ED.VIS.GEN ---
History of Present Illness Chief Complaint: Fall Informant: Patient Narrative: 79-year-old male presenting for evaluation of a head injury. He states that hit the left frontal portion of his head last evening from between 12 and 3:00. He states he got up to get a sleeping pill tripped over something and fell onto his nightstand. He denies loss of consciousness. He denies dizziness, lightheadedness, visual changes, neck pain. He states that he has a superficial abrasion over the left scalp which is hemodynamically stable. He does have a slight swelling in this area. Patient's home health care nurse told him to come to the emergency room for evaluation given that he is on blood thinners. Past Medical History - Allergies and Home Meds Allergies/Adverse Reactions: Allergies No Known Allergies Allergy (Verified 09/05/20 12:13) Primary Care Physician: Gloria Hazel MD [Primary Care Provider] - Surgical History: adenoidectomy, angioplasty - Stent., appendectomy, cataract - Bilateral., cholecystectomy - Laparoscopic., colectomy - Left., herniorrhaphy - Umbilical, Inguinal., rotator cuff repair - Bilateral., - - Hemorrhoidectomy, Vasectomy. Lives: With Family Smoking Status: Former smoker Alcohol: None Drugs: None - Family History Maternal Family History: Family History (Last Reviewed 08/07/20 @ 12:31 by MARTIN Staley) Father CVA (cerebral vascular accident) Brother CAD (coronary artery disease) Mother CVA (cerebral vascular accident) Grandfather Cancer Family History: Reports: No pertinent history Paternal Family History: Family History (Last Reviewed 08/07/20 @ 12:31 by MARTIN Staley) Father CVA (cerebral vascular accident) Brother CAD (coronary artery disease) Mother CVA (cerebral vascular accident) Grandfather Cancer Family History: Reports: No pertinent history Review of Systems General: Denies: Chills, Fever, Sweats Eyes: Denies: Visual changes - bilaterally, Diplopia ENT: Denies: Rhinorrhea, Sore throat Cardiovascular: Denies: Chest pain, Palpitations Respiratory: Denies: Dyspnea, Cough, Dyspnea on exertion Gastrointestinal: Denies: Abdominal pain, Nausea, Vomiting, Diarrhea, Melena, Hematochezia Genitourinary: Denies: Dysuria, Hematuria, Frequency Musculoskeletal: Denies: Back pain, Extremity Pain Skin: Reports: Abrasions - Superficial abrasion to the left scalp. Swelling around this. Neurological: Denies: Headache, Weakness, Parasthesia, Numbness Physical Exam Vital Signs/Narrative: Vital Signs Temp Pulse Resp BP Pulse Ox 09/05/20 12:13 98.8 F 83 15 118/72 96 Inital Vital Signs reviewed: Yes General: Well nourished, No Acute Distress Head: Normocephalic, Atraumatic Eyes: Perrl, EOMI ENT: Moist mucous membranes, Sinus tenderness Cardiovascular: Regular rate, Regular rhythm Respiratory: No distress, CTA bilaterally Back: Nontender, Normal Inspection Extremities: Nontender, No edema Skin: Normal color, - - Superficial abrasion left scalp in the hairline. Mild cephalhematoma. Neurological: Alert, Oriented x3 Psychological: Normal affect, Normal Mood Diagnostic/Tx/Re-eval Clinical Impression(s) from Imaging Studies Brain CT 09/05/20 12:30 IMPRESSION: Moderate sized anterior left parietal scalp hematoma. No intracranial hemorrhage. Electronically Signed: Altaf Benoit MD at 13:16 EDT Tel , Service support , - Medical Decision Making 79-year-old male presenting with left frontal scalp hematoma. He is on blood thinners and was told to come to the ER for evaluation. He has no focal neurologic deficits or lateralizing signs or symptoms. Patient has no complaints except for mild pain around the site. Patient had CT of the brain which showed no acute intracranial process. Patient is discharged home in stable condition. Patient given return precautions. Impression: 1. Cephalhematoma 2. Mechanical fall ED Disposition - Plan for ED Patient: Disposition: Home or Assisted Living Instructions: ED Fall Prevention, ED Hematoma Referrals: Gloria Hazel MD [Primary Care Provider] -
[2020-09-05 14:11] VITALS: BP 130/69; PULSE 65; RESP 15
== END 2020-09-05 14:11 | disposition home or self-care (01) ==
PROVIDERS: Emergency Provider Student in an Organized Health Care Education/Training Program; PCP Family Medicine
DX: S06.2X0A Diffuse traumatic brain injury without loss of consciousness, initial encounter (principal); W18.30XA Fall on same level, unspecified, initial encounter; Y93.89 Activity, other specified; Y92.003 Bedroom of unspecified non-institutional (private) residence as the place of occurrence of the external cause; Y99.8 Other external cause status; Z87.891 Personal history of nicotine dependence
CPT/HCPCS: 70450; 99282

== ENCOUNTER → 2020-09-21 13:37 | Outpatient (CLI) | payer MEDICARE, SELFPAY ==
[2020-09-05 12:13] VITALS: BMI 22.1
[2020-09-21 15:18] LABS: Absolute Lymphocyte Count 0.97 X10^3/uL (0.83-4.51); Absolute Neutrophil Count 5.2 X10^3/uL (2.0-7.7); Basophil# 0.03 X10^3/uL; Basophil% 0.4 % (0-1); Eosinophils% 1.5 % (0-5); Hematocrit 42.4 % (40-54); Lymphocyte # 0.97 X10^3/ul (0.83-4.51); Lymphocyte % 14.1 % (19-41); Mean Corp Hgb Conc 30.7 g/dL (32-36); Mean Corpuscular Hgb 29.8 pg (27.0-32.0); Mean Corpuscular Volume 97.2 fL (80-94); Mean Platelet Vol. 9.3 fl (6.2-12.0); Monocyte# 0.55 X10^3/uL; NRBC Flagged by Analyzer 0 % (0-5); Neutrophil % 75.7 % (47-70); POSITIVE MORPHOLOGY YES; Platelet Count 188 K/mm3 (150-450); RBC Distribution Width SD 68.5 fl (35.1-43.9); Red Blood Count 4.36 M/mm3 (4.6-6.2); White Blood Count 6.9 K/mm3 (4.4-11.0)
[2020-09-21 15:22] LABS: Differential Indicated SCAN CRITERIA MET
[2020-09-21 15:42] LABS: ALB/GLOB Ratio 1.1 RATIO (0.9-2.4); AST(SGOT) 22 U/L (15-37); Alanine Aminotransfer ALT/SGPT 28 U/L (16-61); Albumin, Serum 3.5 g/dL (3.2-5.0); Alkaline Phosphatase 74 U/L (45-117); Anion Gap 5 (5-15); BUN 9 mg/dL (7-18); BUN/Creat Ratio 11.4 RATIO (10-20); Calcium,Total 8.7 mg/dL (8.5-10.1); Chloride 103 mmol/L (98-107); Creatinine, Serum 0.79 mg/dL (0.70-1.30); EST Glomerular Filtration Rate 101 mL/min (>60); Est Glom Filt Rate - Afr Amer 122 mL/min (>60); Globulin 3.2 g/dL (2.2-4.2); Glucose 92 mg/dL (74-106); Protein, Total 6.7 g/dL (6.4-8.2); Sodium Level 138 mmol/L (136-145)
[2020-09-21 15:53] LABS: Differential Comment SCANNED
== END ==
PROVIDERS: PCP Family Medicine; Referring Provider Internal Medicine Rheumatology; Visit Provider Internal Medicine Rheumatology
DX: M05.70 Rheumatoid arthritis with rheumatoid factor of unspecified site without organ or systems involvement (principal); M25.512 Pain in left shoulder; M17.0 Bilateral primary osteoarthritis of knee; G47.00 Insomnia, unspecified; M21.40 Flat foot [pes planus] (acquired), unspecified foot; M47.897 Other spondylosis, lumbosacral region; I87.2 Venous insufficiency (chronic) (peripheral); N40.1 Benign prostatic hyperplasia with lower urinary tract symptoms; Z79.899 Other long term (current) drug therapy
CPT/HCPCS: 36415; 80053; 85025

== ENCOUNTER → 2020-10-06 13:49 | Outpatient (CLI) | payer MEDICARE, SELFPAY ==
[2020-09-28 13:24] VITALS: BMI 22.8
[2020-10-06 13:57] VITALS: BP 119/58; PULSE 85; RESP 16; TEMP 36.2; O2SAT 99; BMI 23.3
[2020-10-06] MEDS: 0.9% NaCl Peripheral Flush Adult/Peds IV (14:06)
[2020-10-06] MEDS: 0.9% NaCl IVPB Med Flush (250 mL) 15 ML IV (14:13)
[2020-10-06 15:07] VITALS: BP 98/55; PULSE 79; RESP 14; TEMP 36.2; O2SAT 94
== END ==
PROVIDERS: PCP Family Medicine; Referring Provider Internal Medicine Rheumatology; Visit Provider Internal Medicine Rheumatology
DX: M05.70 Rheumatoid arthritis with rheumatoid factor of unspecified site without organ or systems involvement (principal)
CPT/HCPCS: 96365; J7050; A4216; J1602

== ENCOUNTER → 2020-10-09 13:03 | Outpatient (CLI) | payer MEDICARE, SELFPAY ==
[2020-09-28 13:24] VITALS: BMI 22.8
[2020-10-06 13:57] VITALS: BMI 23.3
--- NOTE | 2020-10-09 13:06 | CDU_ITS ---
Reason For Study: bilateral carotid bruits Rt. Velocities/BP Lt. Velocities/BP Prox CCA 61.2/10.3 cm/sec. Prox CCA 120.4/10.5 cm/sec. Mid CCA 55.9/11.3 cm/sec. Mid CCA 86.9/19.4 cm/sec. Dist CCA 52.0/7.7 cm/sec. Dist CCA 68.3/13.0 cm/sec. Prox ICA 44.2/10.1 cm/sec. Prox ICA 66.6/11.6 cm/sec. Mid ICA 58.4/13.4 cm/sec. Mid ICA 72.1/16.0 cm/sec. Dist ICA 59.5/13.4 cm/sec. Dist ICA 75.4/17.1 cm/sec. Rt. ICA/CCA = 59.5/55.9=1.1. Lt. ICA/CCA = 75.4/86.9=0.9. Prox ECA 55.9/0.0 cm/sec. Prox ECA 80.8/8.3 cm/sec. Rt. Vert. 42.0/14.5 cm/sec. Lt. Vert. 50.1/11.6 cm/sec. Right Extracranial There is heterogeneous, irregular atherosclerotic plaque noted in the right common carotid artery. There is heterogeneous, smooth atherosclerotic plaque noted in the right internal carotid artery. There is intimal thickening but no significant atherosclerotic plaque noted in the right external carotid artery. Antegrade flow is noted in the right vertebral artery. Left Extracranial There is heterogeneous, smooth atherosclerotic plaque noted in the left common carotid artery. There is intimal thickening but no significant atherosclerotic plaque noted in the left internal carotid artery. There is intimal thickening but no significant atherosclerotic plaque noted in the left external carotid artery. Antegrade flow is noted in the left vertebral artery. There is heterogeneous, irregular atherosclerotic plaque noted in the left bulb. Procedure Carotid Duplex 62441. Exam performed in department. VL/Carotid Duplex Ultrasound Interpretation Summary Irregular calcific plaque of the proximal right internal carotid artery with le ss than 50% stenosis Less than 50% stenosis right external carotid artery Extensive heterogenous calcific plaque with shadowing at the proximal left inte rnal carotid artery with less than 50% stenosis. Less than 50% stenosis left external carotid artery Patent and antegrade vertebral arteries bilaterally Ordering Physician: Radha Romero Referring Physician: Gloria Hazel Performed By: Claire Meza, MANIOR, RVT
== END ==
PROVIDERS: PCP Family Medicine; Referring Provider Physician Assistant Medical; Visit Provider Physician Assistant Medical
DX: R55 Syncope and collapse (principal)
CPT/HCPCS: 93880

== ENCOUNTER → 2020-11-24 16:44 | Outpatient (CLI) | payer MEDICARE, SELFPAY ==
[2020-10-06 13:57] VITALS: BMI 23.3
[2020-11-24 18:01] LABS: Absolute Lymphocyte Count 0.63 X10^3/uL (0.83-4.51); Absolute Neutrophil Count 6.4 X10^3/uL (2.0-7.7); Basophil# 0.05 X10^3/uL; Basophil% 0.7 % (0-1); Eosinophil# 0.03 X10^3/uL; Eosinophils% 0.4 % (0-5); Hematocrit 42.3 % (40-54); Hemoglobin 13.4 g/dL (13.0-16.5); Lymphocyte # 0.63 X10^3/ul (0.83-4.51); Lymphocyte % 8.5 % (19-41); Mean Corp Hgb Conc 31.7 g/dL (32-36); Mean Corpuscular Hgb 31.2 pg (27.0-32.0); Mean Corpuscular Volume 98.4 fL (80-94); Mean Platelet Vol. 9.7 fl (6.2-12.0); Monocyte# 0.23 X10^3/uL; Monocyte% 3.1 % (0-10); NRBC Flagged by Analyzer 0 % (0-5); Neutrophil # 6.43 X10^3/uL (2.7-7.7); Neutrophil % 87.2 % (47-70); Platelet Count 194 K/mm3 (150-450); RBC Distribution Width CV 14.7 % (11.6-14.6); White Blood Count 7.4 K/mm3 (4.4-11.0)
[2020-11-24 18:23] LABS: ALB/GLOB Ratio 1.2 RATIO (0.9-2.4); AST(SGOT) 24 U/L (15-37); Alanine Aminotransfer ALT/SGPT 30 U/L (16-61); Albumin, Serum 3.7 g/dL (3.2-5.0); Alkaline Phosphatase 65 U/L (45-117); Anion Gap 4 (5-15); BUN 12 mg/dL (7-18); BUN/Creat Ratio 12.5 RATIO (10-20); Calcium,Total 8.6 mg/dL (8.5-10.1); Chloride 105 mmol/L (98-107); Creatinine, Serum 0.96 mg/dL (0.70-1.30); EST Glomerular Filtration Rate 80 mL/min (>60); Est Glom Filt Rate - Afr Amer 97 mL/min (>60); Glucose 112 mg/dL (74-106); Potassium 4.4 mmol/L (3.5-5.1); Protein, Total 6.7 g/dL (6.4-8.2); Sodium Level 139 mmol/L (136-145)
== END ==
PROVIDERS: PCP Family Medicine; Referring Provider Internal Medicine Rheumatology; Visit Provider Internal Medicine Rheumatology
DX: M05.79 Rheumatoid arthritis with rheumatoid factor of multiple sites without organ or systems involvement (principal); M25.512 Pain in left shoulder; M17.0 Bilateral primary osteoarthritis of knee; G47.00 Insomnia, unspecified; M21.40 Flat foot [pes planus] (acquired), unspecified foot; M47.897 Other spondylosis, lumbosacral region; I87.2 Venous insufficiency (chronic) (peripheral); N40.1 Benign prostatic hyperplasia with lower urinary tract symptoms; Z79.899 Other long term (current) drug therapy
CPT/HCPCS: 36415; 80053; 85025

== ENCOUNTER → 2020-12-03 14:36 | Outpatient (CLI) | payer MEDICARE, SELFPAY ==
[2020-09-28 13:24] VITALS: BMI 22.8
[2020-10-06 13:57] VITALS: BMI 23.3
[2020-12-03 14:50] VITALS: BP 97/56; PULSE 80; RESP 16; TEMP 36; O2SAT 96
[2020-12-03] MEDS: 0.9% NaCl Peripheral Flush Adult/Peds IV (14:59)
[2020-12-03] MEDS: 0.9% NaCl IVPB Med Flush (250 mL) 15 ML IV (15:17)
[2020-12-03 16:14] VITALS: BP 101/62; PULSE 73; RESP 16; TEMP 36.2; O2SAT 96
== END ==
PROVIDERS: PCP Family Medicine; Referring Provider Internal Medicine Rheumatology; Visit Provider Internal Medicine Rheumatology
DX: M05.70 Rheumatoid arthritis with rheumatoid factor of unspecified site without organ or systems involvement (principal)
CPT/HCPCS: 96365; J7050; A4216; J1602

== ENCOUNTER → 2021-02-03 14:38 | Outpatient (CLI) | payer MEDICARE, SELFPAY ==
[2020-10-06 13:57] VITALS: BMI 23.3
[2021-02-03 14:54] VITALS: BP 108/64; PULSE 65; RESP 16; TEMP 36.5; O2SAT 95; BMI 26.7
[2021-02-03] MEDS: 0.9% NaCl Peripheral Flush Adult/Peds IV (14:59)
[2021-02-03] MEDS: 0.9% NaCl IVPB Med Flush (250 mL) 15 ML IV (14:59)
[2021-02-03 15:54] VITALS: BP 112/62; PULSE 68
== END ==
PROVIDERS: PCP Family Medicine; Referring Provider Internal Medicine Rheumatology; Visit Provider Internal Medicine Rheumatology
DX: M06.9 Rheumatoid arthritis, unspecified (principal)
CPT/HCPCS: 96365; J7050; A4216; J1602

== ENCOUNTER → 2021-02-24 14:08 | Outpatient (CLI) | payer MEDICARE, SELFPAY ==
[2021-02-24 18:11] LABS: Absolute Neutrophil Count 3.9 X10^3/uL (2.0-7.7); Basophil# 0.03 X10^3/uL; Basophil% 0.6 % (0-1); Eosinophil# 0.12 X10^3/uL; Eosinophils% 2.2 % (0-5); Hemoglobin 13.3 g/dL (13.0-16.5); Lymphocyte % 18.6 % (19-41); Mean Corp Hgb Conc 31.7 g/dL (32-36); Mean Corpuscular Hgb 31.5 pg (27.0-32.0); Mean Corpuscular Volume 99.5 fL (80-94); Mean Platelet Vol. 9.9 fl (6.2-12.0); Monocyte# 0.33 X10^3/uL; Monocyte% 6.1 % (0-10); NRBC Flagged by Analyzer 0 % (0-5); Neutrophil % 72.3 % (47-70); Platelet Count 185 K/mm3 (150-450); RBC Distribution Width CV 15.2 % (11.6-14.6); RBC Distribution Width SD 55.5 fl (35.1-43.9); Red Blood Count 4.22 M/mm3 (4.6-6.2); White Blood Count 5.4 K/mm3 (4.4-11.0)
[2021-02-24 18:38] LABS: AST(SGOT) 26 U/L (15-37); Alanine Aminotransfer ALT/SGPT 33 U/L (16-61); Albumin, Serum 3.4 g/dL (3.2-5.0); Alkaline Phosphatase 47 U/L (45-117); Anion Gap 7 (5-15); BUN 7 mg/dL (7-18); BUN/Creat Ratio 7.5 RATIO (10-20); Calcium,Total 8.7 mg/dL (8.5-10.1); Chloride 104 mmol/L (98-107); Creatinine, Serum 0.93 mg/dL (0.70-1.30); EST Glomerular Filtration Rate 83 mL/min (>60); Est Glom Filt Rate - Afr Amer 101 mL/min (>60); Globulin 3.3 g/dL (2.2-4.2); Glucose 96 mg/dL (74-106); Potassium 4.2 mmol/L (3.5-5.1); Protein, Total 6.7 g/dL (6.4-8.2); Sodium Level 140 mmol/L (136-145)
== END ==
PROVIDERS: PCP Family Medicine; Referring Provider Internal Medicine Rheumatology; Visit Provider Internal Medicine Rheumatology
DX: M05.79 Rheumatoid arthritis with rheumatoid factor of multiple sites without organ or systems involvement (principal); M25.512 Pain in left shoulder; M17.0 Bilateral primary osteoarthritis of knee; G47.00 Insomnia, unspecified; M21.40 Flat foot [pes planus] (acquired), unspecified foot; M47.897 Other spondylosis, lumbosacral region; I87.2 Venous insufficiency (chronic) (peripheral); N40.1 Benign prostatic hyperplasia with lower urinary tract symptoms; Z79.899 Other long term (current) drug therapy
CPT/HCPCS: 36415; 80053; 85025

== ENCOUNTER → 2021-03-15 11:40 | Outpatient (CLI) | payer MEDICARE, SELFPAY ==
--- NOTE | 2021-03-15 11:42 | RAD_ITS ---
STUDY: X-RAY - LEFT SHOULDER REASON FOR EXAM: Male, 80 years old. ARTHRITIS TECHNIQUE: 4 view(s) of the shoulder. COMPARISON: None. FINDINGS: There is cephalad migration of the humeral head consistent with rotator cuff pathology. Normal acromioclavicular joint. Normal acromion. Normal humeral head and visualized proximal humerus. The soft tissue structures are unremarkable. Normal visualized pulmonary apex. RAD/Shoulder min 2 Views IMPRESSION: Suspected rotator cuff tear with superior displacement humeral head consistent with loss of the depressor mechanism. Electronically Signed: Atlaf Benoti MD at 16:10 EDT Tel , Service support ,
--- NOTE | 2021-03-15 11:42 | RAD_ITS ---
STUDY: X-RAY - RIGHT SHOULDER REASON FOR EXAM: Male, 80 years old. ARTHRITIS TECHNIQUE: 4 view(s) of the shoulder. COMPARISON: None. FINDINGS: There is cephalad migration of the humeral head consistent with rotator cuff pathology. Normal acromioclavicular joint. Normal acromion. Surgical anchors in the humeral head consistent with prior rotator cuff repair. Normal humeral head and visualized proximal humerus. The soft tissue structures are unremarkable. Normal visualized pulmonary apex. 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 Electronically Signed: Altaf Benoit MD at 16:09 EDT Tel , Service support ,
== END ==
PROVIDERS: PCP Family Medicine; Referring Provider Internal Medicine Rheumatology; Visit Provider Internal Medicine Rheumatology
DX: M05.79 Rheumatoid arthritis with rheumatoid factor of multiple sites without organ or systems involvement (principal); M79.645 Pain in left finger(s); M17.0 Bilateral primary osteoarthritis of knee; M21.40 Flat foot [pes planus] (acquired), unspecified foot; M47.897 Other spondylosis, lumbosacral region; G47.00 Insomnia, unspecified; I87.2 Venous insufficiency (chronic) (peripheral); N40.1 Benign prostatic hyperplasia with lower urinary tract symptoms; Z79.899 Other long term (current) drug therapy
CPT/HCPCS: 73030

== ENCOUNTER → 2021-03-31 14:36 | Outpatient (CLI) | payer MEDICARE, SELFPAY ==
[2021-03-31 14:48] VITALS: BP 121/63; PULSE 72; RESP 16; TEMP 36.9; O2SAT 98; BMI 25.9
[2021-03-31] MEDS: 0.9% NaCl Peripheral Flush Adult/Peds IV (14:57)
[2021-03-31] MEDS: 0.9% NaCl IVPB Med Flush (250 mL) 15 ML IV (15:00)
[2021-03-31 15:57] VITALS: BP 111/57; PULSE 74; RESP 16
== END ==
PROVIDERS: PCP Family Medicine; Referring Provider Internal Medicine Rheumatology; Visit Provider Internal Medicine Rheumatology
DX: M06.9 Rheumatoid arthritis, unspecified (principal)
CPT/HCPCS: 96365; J7050; A4216; J1602

== ENCOUNTER 2021-05-09 16:59 | Emergency (ER) | payer MEDICARE, SELFPAY ==
[2021-05-09 17:00] VITALS: BP 146/80; PULSE 92; RESP 18; TEMP 36.1; O2SAT 97; BMI 25.2
--- NOTE | 2021-05-09 17:40 | RAD_ITS ---
EXAM: XR CHEST, 1 VIEW : 1940 CLINICAL INDICATION: COUGH TECHNIQUE: Frontal view of the chest. This report was created using [employer] report generation technology. COMPARISON: 08/12/2020 FINDINGS: LUNGS AND PLEURAL SPACES: The lungs are mildly hyperinflated with minimal interstitial scarring. No pneumothorax. No effusion. HEART: Unremarkable. Cardiac silhouette not enlarged. MEDIASTINUM: Central airways and mediastinal contour are unremarkable. BONES/JOINTS: Unremarkable. SOFT TISSUES: Unremarkable. RAD/Chest 1 View (Portable) IMPRESSION: Mild pulmonary hyperinflation with interstitial scarring. There is no acute pulmonary abnormality. at 1828 Reported and signed by: Yosef Hackett MD Electronically Signed: Yosef Hackett MD at 18:27 EST Tel , Service support ,
[2021-05-09 18:41] VITALS: RESP 15; O2SAT 100
[2021-05-09 18:43] LABS: Absolute Lymphocyte Count 0.96 X10^3/uL (0.83-4.51); Basophil# 0.05 X10^3/uL; Basophil% 0.7 % (0-1); Eosinophil# 0.22 X10^3/uL; Hematocrit 40.7 % (40-54); Hemoglobin 13.2 g/dL (13.0-16.5); Lymphocyte # 0.96 X10^3/ul (0.83-4.51); Lymphocyte % 13.2 % (19-41); Mean Corp Hgb Conc 32.4 g/dL (32-36); Mean Corpuscular Hgb 31.9 pg (27.0-32.0); Mean Corpuscular Volume 98.3 fL (80-94); Mean Platelet Vol. 9.4 fl (6.2-12.0); Monocyte# 1.01 X10^3/uL; Monocyte% 13.9 % (0-10); NRBC Flagged by Analyzer 0 % (0-5); Neutrophil # 5.02 X10^3/uL (2.7-7.7); Neutrophil % 68.9 % (47-70); Platelet Count 179 K/mm3 (150-450); RBC Distribution Width CV 14.3 % (11.6-14.6); RBC Distribution Width SD 51.5 fl (35.1-43.9); Red Blood Count 4.14 M/mm3 (4.6-6.2); White Blood Count 7.3 K/mm3 (4.4-11.0)
[2021-05-09 18:57] LABS: Anion Gap 5 (5-15); BUN 7 mg/dL (7-18); BUN/Creat Ratio 7.4 RATIO (10-20); Calcium,Total 8.9 mg/dL (8.5-10.1); Chloride 106 mmol/L (98-107); Creatinine, Serum 0.95 mg/dL (0.70-1.30); EST Glomerular Filtration Rate 81 mL/min (>60); Est Glom Filt Rate - Afr Amer 98 mL/min (>60); Estimated Creatinine Clearance 51.58 ml/min; Glucose 101 mg/dL (74-106); Sodium Level 141 mmol/L (136-145)
--- NOTE | 2021-05-09 19:16 | EDS_ITS ---
HPI HPI - URI History of Present Illness Chief Complaint: Cold Sx Informant: patient Onset/Context/Timing Onset: Month(s) Context: Sudden Onset Timing: Continuous Quality: Difficulty breathing through his right or left naris Location: No Current Severity: Moderate Maximum Severity: Severe Worsened by: - (Supine position) Relieved by: - (Nothing) Associated Symptoms Associated Symptoms: Positive for Nasal Congestion; Negative for Headache, Sinus Pressure, Myalgias, Nausea, Vomiting, Diarrhea, Shortness of Breath, Chest Pain, Nonproductive cough, Hemoptysis and Productive Cough Narrative Narrative: Patient is a 80-year-old male with multiple medical problems which include coronary disease, atrial fibrillation, GERD, rheumatoid arthritis, paroxysmal supraventricular tachycardia, benign prostatic hypertrophy, allergic rhinitis who presents because he is been unable to breathe through his nose for the past 2 months. Is worse when he supine. He saw his primary care physician was placed on amoxicillin with no improvement. He is using Flonase without improvement. He has not used any [id number] nasal sprays. He denies fever or chills. He denies headache. He is on anticoagulant. He has noted blood when he puts paper up his nose for the past several evenings if not longer. He does report bruising easily. Denies black or maroon-colored stool. Denies blood in his urine. Denies bleeding from his gums. Prior similar symptoms: Yes Recent Illness/Hospitalization: Yes [facility] ED Constitutional Constitutional ED: Denies chills, fever(s), subjective, sweats or weight loss Eyes Eyes: Denies blurry vision, change in vision or diplopia ENT ENT ED: Reports other Details: Nasal congestion and epistaxis ; Denies ear pain, rhinorrhea or sore throat Cardiovascular Cardiovascular: Denies chest pain, orthopnea, palpitations, paroxysmal nocturnal dyspnea or racing heartbeat Respiratory/Chest Respiratory/Chest: Denies cough, dyspnea, dyspnea on exertion, orthopnea, paroxysmal nocturnal dyspnea or sputum Gastrointestinal Gastrointestinal: Denies abdominal pain, diarrhea, nausea or vomiting Genitourinary Genitourinary ED: Denies dysuria, hematuria or urinary frequency Musculoskeletal Musculoskeletal: Denies arthralgias, back pain, myalgias or neck pain Integumentary Denies rash Neurologic Neurologic: Denies headache(s), paresthesias or weakness Hematologic/Lymphatic Hematologic/Lymphatic: Reports easy bruising; Denies easy bleeding PFSH PFS Medical History Abnormal echocardiogram Abnormal EKG Atherosclerotic heart disease of [place] coronary artery without angina pectoris Back pain Edema H/o finger stitches H/o three feet of intestines removed Hemorrhoids Left ventricular hypokinesis Leg pain, bilateral PAT (paroxysmal atrial tachycardia) Rheumatoid arthritis SVT (supraventricular tachycardia) Home Medications tamsulosin 0.4 mg PO DAILY@1800 07/18/20 [History Last Taken 08/11/20 18:32] Blood pressue cuff #1 ea 09/28/20 [Rx Last Taken Unknown] amiodarone 200 mg tablet 200 mg PO DAILY #90 tab 09/28/20 [Rx Last Taken Unknown] atorvastatin 40 mg tablet 40 mg PO QHS #90 tab 09/28/20 [Rx Last Taken Unknown] folic acid 1 mg tablet 1 mg PO DAILY 09/28/20 [History Last Taken Unknown] mirtazapine 15 mg tablet 15 mg PO QHS tab 09/28/20 [History Last Taken Unknown] finasteride 1 mg tablet 1 mg PO DAILY 12/30/20 [History Last Taken Unknown] hydroxychloroquine 200 mg tablet 200 mg PO BID 12/30/20 [History Last Taken Unknown] miscellaneous medical supply 1 ea MISCELLANEOUS DIRECTED #1 ea 12/30/20 [Rx Last Taken Unknown] prednisone 5 mg tablet 5 mg PO DAILY 12/30/20 [History Last Taken Unknown] multivitamin 1 tab PO DAILY 01/01/21 [History Last Taken Unknown] rivaroxaban 20 mg tablet 20 mg PO DAILY #30 tab 04/14/21 [Rx Last Taken Unknown] trazodone 150 mg PO QHS 05/09/21 [History Last Taken Unknown] Allergy/AdvReac Type Severity Reaction Status Date / Time No Known Allergies Allergy Verified 05/09/21 17:00 Family History Father CVA (cerebral vascular accident) Brother CAD (coronary artery disease) CABG X 3 Mother CVA (cerebral vascular accident) Grandfather Cancer prostate Surgical History H/O colonoscopy H/O umbilical hernia repair History of coronary artery stent placement (08/06/20) S/P appendectomy S/P cataract surgery S/P hemorrhoidectomy S/P inguinal hernia repair S/P laparoscopic cholecystectomy S/P left colectomy S/P rotator cuff repair S/P vasectomy Social History (Updated 05/09/21 @ 19:[address] Apolinar Lozano MD) household members: none Smoking Status: Never smoker how long ago did patient quit smokin years ago alcohol intake: never substance use type: does not use diet: low salt caffeine: Yes Type: coffee Number of servings: 4 EXAM Physical Exam Const Vital Signs: 05/09/21 17:00 05/09/21 18:41 05/09/21 18:42 Temperature 97.0 F L Temperature Source Temporal Pulse Rate 92 Respiratory Rate 18 15 Respiratory Effort Normal Non-Labored Respiratory Pattern Normal Blood Pressure 146/80 H Blood Pressure Mean 102 Pulse Ox 97 100 Oxygen Delivery Method Room Air Room Air Positive well nourished and well developed General Appearance ED: well developed and NAD; Negative for cyanotic, diaphoretic or pallor HEENT Reports moist mucous membranes HEENT Narrative: Nares patent with blood noted in the right and left. There is no active bleeding. Nasal mucosa is pale grayish in color consistent with allergic dose. normocephalic and atraumatic Face and Sinus: Negative for sinus tenderness, maxillary instability or facial tenderness External Ear: external ears normal and mastoids normal Throat: posterior oropharynx normal Eyes PERRL and EOMs intact bilaterally General Eye ED: Negative for pale conjunctiva or scleral icterus Neck no lymphadenopathy, supple, no meningeal signs and no JVD General: Negative for anterior neck swelling or lymphadenopathy Resp normal respiratory effort and clear to auscultation bilaterally Cardio no murmurs Rate: regular rate GI non-tender, non-distended and no masses Auscultation: normoactive bowel sounds Palpation: soft Back/Spine no CVA tenderness and normal ROM Cervical Spine: Negative for cervical spine tenderness Thoracic Spine / Upper Back: Negative for thoracic spinal tenderness Lumbar Spine / Lower Back: Negative for lumbar spinal tenderness Extremity normal to inspection and full ROM General Extremety ED: Negative for cyanosis or tenderness General Extremity: Negative for cyanosis Neuro oriented x3 and CN's II-XII intact bilaterally Sensorium / Orientation: alert Psych mental status grossly normal Skin General Skin Exam: Negative for jaundice or pallor Lesions: no lesions Rashes: no rashes MDM MDM MDM Narrative Medical decision making narrative: Patient with allergic rhinitis. Will obtain blood work to rule out anemia, thrombocytopenia. Also to assess renal function. Because he complained of trouble breathing per nurse protocol EKG chest x-ray were obtained which were both are unremarkable. Patient was reassessed at 1930. There is no active bleeding. Had patient clear his right and left naris. There is a 1 mm area where he bled over Poppy box plus is on the right and there is an area of pallor about 2 to 3 mm in circumference that is not actively bleeding. He does have pale veliz nasal mucosa consistent with allergic rhinitis. He has been instructed to hold his anticoagulant today and tomorrow and his antiplatelet today. He was instructed not to dab his nose or stick anything up his nose to check if he is bleeding because I will cause the bleeding to continue/persist. Lab Data Attestation: I reviewed the patient's lab results. Lab results narrative: CBC and H&H are unremarkable. Basic metabolic panel is unremarkable with a normal BUN to creatinine ratio. Labs: Laboratory Results - last 24 hr 05/09/21 05/09/21 18:35 18:35 WBC 7.3 RBC 4.14 L Hgb 13.2 Hct 40.7 MCV 98.3 H MCH 31.9 MCHC 32.4 RDW Std Deviation 51.5 H RDW Coeff of Jaciel 14.3 Plt Count 179 MPV 9.4 Immature Gran % (Auto) 0.300 Neut % (Auto) 68.9 Lymph % (Auto) 13.2 L [place] % (Auto) 13.9 H Eos % (Auto) 3.0 Baso % (Auto) 0.7 Absolute Neuts (auto) 5.0 Absolute Lymphs (auto) 0.96 Nucleated RBC % 0 Sodium 141 Potassium 4.0 Chloride 106 Carbon Dioxide 30.0 Anion Gap 5 BUN 7 Creatinine 0.95 Estim Creat Clear Calc 51.58 Est GFR (MDRD) Af Amer 98 Est GFR (MDRD) Non-Af 81 BUN/Creatinine Ratio 7.4 L Glucose 101 Calcium 8.9 Radiography Diagnostic Testing: Clinical Impression(s) from Imaging Studies Chest X-Ray 05/09/21 17:40 IMPRESSION: Mild pulmonary hyperinflation with interstitial scarring. There is no acute pulmonary abnormality. at 1828 Reported and signed by: Yosef Hackett MD Electronically Signed: Yosef Hackett MD at 18:27 EST Tel , Service support , Chest x-ray reveals chronic interstitial changes consistent with scarring. Single view portable chest x-ray was obtained Discharge Plan Triage Chief Complaint: Cold Sx ED Provider: Apolinar Lozano Dx/Rx/DC Orders Clinical Impression: Anterior epistaxis, Anticoagulant long-term use, Dyspnea, Allergic rhinitis Instructions: Nosebleed Prescriptions: No Action folic acid 1 mg tablet 1 mg PO DAILY RF: 0 mirtazapine 15 mg tablet 15 mg PO QHS RF: 0 amiodarone 200 mg tablet 200 mg PO DAILY Qty: 90 RF: 3 atorvastatin 40 mg tablet 40 mg PO QHS Qty: 90 RF: 3 (DME) Blood pressue cuff See Rx Instructions .Route .MEDSUPPLY Qty: 1 RF: 0 multivitamin [Daily Multi-Vitamin] Tablet 1 tab PO DAILY RF: 0 finasteride 1 mg tablet 1 mg PO DAILY RF: 0 hydroxychloroquine [Plaquenil] 200 mg tablet 200 mg PO BID RF: 0 prednisone 5 mg tablet 5 mg PO DAILY RF: 0 miscellaneous medical supply Misc 1 ea miscellaneous DIRECTED Qty: 1 RF: 0 tamsulosin 0.4 MG capsule 0.4 mg PO DAILY@1800 RF: 0 trazodone 100 MG tablet 150 mg PO QHS RF: 0 Xarelto 20 mg tablet 20 mg PO DAILY Qty: 30 RF: 11 Primary Care Provider: Gloria Hazel Referrals: Gloria Hazel MD [Primary Care Provider] - Activity Restrictions/Additional Instructions: 1. Do not take your anticoagulant dose today night or tomorrow night 2. Hold your Plavix dose tonight and tomorrow night 3. Do not stick anything in your nose or dab it because this will cause the bleeding to persist. Disposition Disposition: Home, Self Care
[2021-05-09 19:57] VITALS: BP 132/70; PULSE 69; RESP 14; O2SAT 99
== END 2021-05-09 19:58 | disposition home or self-care (01) ==
PROVIDERS: Emergency Provider Emergency Medicine; PCP Family Medicine
DX: R04.0 Epistaxis (principal); R06.09 Other forms of dyspnea; J30.9 Allergic rhinitis, unspecified; I48.91 Unspecified atrial fibrillation; I47.1 Supraventricular tachycardia; K21.9 Gastro-esophageal reflux disease without esophagitis; M06.9 Rheumatoid arthritis, unspecified; N40.0 Benign prostatic hyperplasia without lower urinary tract symptoms; Z79.52 Long term (current) use of systemic steroids; Z79.899 Other long term (current) drug therapy; Z87.891 Personal history of nicotine dependence; Z79.01 Long term (current) use of anticoagulants
CPT/HCPCS: 71045; 80048; 85025; 87426; 94760; 99283; A4216

== ENCOUNTER 2021-05-11 01:41 | Emergency (ER) | payer MEDICARE, SELFPAY ==
[2021-05-11 01:42] VITALS: BP 105/51; PULSE 68; PULSE 71; RESP 18; TEMP 36.4; TEMP 36.5; O2SAT 96; O2SAT 97; BMI 25.5
--- NOTE | 2021-05-11 01:57 | CT_ITS ---
STUDY: CT BRAIN WITHOUT CONTRAST REASON FOR EXAM: Male, 80 years old. Injury. Struck back of head. On eloquence. TECHNIQUE: Transaxial CT imaging of the brain was performed without administration of intravenous contrast material. Individualized dose optimization techniques were used for this CT. COMPARISON: 09/05/2020 CT brain. FINDINGS: No evidence of intracranial hemorrhage, mass, acute infarct, or hydrocephalus. Chronic microangiopathic changes in the white matter. Atherosclerosis of the intracranial arteries. No skull fracture or acute osseous abnormality. Paranasal sinus mucosal thickening and fluid. Visualized extracranial soft tissues unremarkable. CT/Brain/Head without Contrast IMPRESSION: No evidence of intracranial injury or skull fracture. Electronically Signed: Chad Lackey MD at 2:29 EST Tel , Service support ,
[2021-05-11] MEDS: 0.9% Normal Saline 1,000 ML 999 ML IV (02:35)
--- NOTE | 2021-05-11 02:39 | RAD_ITS ---
STUDY: X-RAY - PELVIS AND LEFT HIP REASON FOR EXAM: Male, 80 years old. Pain after falling. TECHNIQUE: 3 views of the pelvis and hip. COMPARISON: 07/13/2020 radiographs. FINDINGS: No visible fracture. No osseous destruction. Mild bony demineralization. Alignment anatomic. Mild degenerative changes. No acute soft tissue abnormality. Calcific atherosclerosis. RAD/HIP, UNI W/ Pelvis 2-3 Views IMPRESSION: No acute osseous abnormality. Electronically Signed: Chad Lackey MD at 3:18 EST Tel , Service support ,
[2021-05-11 02:50] LABS: Absolute Lymphocyte Count 0.72 X10^3/uL (0.83-4.51); Absolute Neutrophil Count 6.3 X10^3/uL (2.0-7.7); Basophil# 0.04 X10^3/uL; Basophil% 0.5 % (0-1); Eosinophil# 0.17 X10^3/uL; Hematocrit 35.6 % (40-54); Hemoglobin 11.9 g/dL (13.0-16.5); Lymphocyte # 0.72 X10^3/ul (0.83-4.51); Lymphocyte % 8.5 % (19-41); Mean Corp Hgb Conc 33.4 g/dL (32-36); Mean Corpuscular Hgb 32.2 pg (27.0-32.0); Mean Corpuscular Volume 96.5 fL (80-94); Mean Platelet Vol. 9.3 fl (6.2-12.0); Monocyte# 1.18 X10^3/uL; NRBC Flagged by Analyzer 0 % (0-5); Neutrophil # 6.31 X10^3/uL (2.7-7.7); Neutrophil % 74.6 % (47-70); Platelet Count 161 K/mm3 (150-450); RBC Distribution Width CV 14.1 % (11.6-14.6); RBC Distribution Width SD 49.6 fl (35.1-43.9); Red Blood Count 3.69 M/mm3 (4.6-6.2); White Blood Count 8.5 K/mm3 (4.4-11.0)
[2021-05-11 03:24] LABS: ALB/GLOB Ratio 0.9 RATIO (0.9-2.4); AST(SGOT) 23 U/L (15-37); Alanine Aminotransfer ALT/SGPT 22 U/L (16-61); Albumin, Serum 2.8 g/dL (3.2-5.0); Alkaline Phosphatase 55 U/L (45-117); Anion Gap 9 (5-15); BUN 13 mg/dL (7-18); BUN/Creat Ratio 15.6 RATIO (10-20); Chloride 101 mmol/L (98-107); Creatinine, Serum 0.84 mg/dL (0.70-1.30); EST Glomerular Filtration Rate 95 mL/min (>60); Est Glom Filt Rate - Afr Amer 114 mL/min (>60); Estimated Creatinine Clearance 58.33 ml/min; Globulin 3.2 g/dL (2.2-4.2); Glucose 97 mg/dL (74-106); Potassium 3.2 mmol/L (3.5-5.1); Sodium Level 135 mmol/L (136-145)
--- NOTE | 2021-05-11 03:52 | ED.VIS.GI ---
HPI HPI - GI History of Present Illness Chief Complaint: Diarrhea Narrative Narrative: 80-year-old male presenting with weakness. He states he had diarrhea for the last 3 days and this morning he tried to get up out of bed and felt lightheaded and weak and fell hitting his head on the nightstand. He denies LOC. He states he hurt his left hip and crawled to the bathroom because he cannot stand up. Patient states he has not had any black or bloody stool but is on Eliquis for history of A. fib. Patient denies any visual complaints other than lightheadedness when he stands. He does not have any nausea or vomiting. He does not appear to be confused. He has no signs of injury to his head. Patient does state that he has had some sinus congestion since . He tested negative for Covid yesterday. [facility] Medical History Abnormal echocardiogram Abnormal EKG Atherosclerotic heart disease of [place] coronary artery without angina pectoris Back pain Edema H/o finger stitches H/o three feet of intestines removed Hemorrhoids Left ventricular hypokinesis Leg pain, bilateral PAT (paroxysmal atrial tachycardia) Rheumatoid arthritis SVT (supraventricular tachycardia) Home Medications tamsulosin 0.4 mg PO DAILY@1800 07/18/20 [History Last Taken 08/11/20 18:32] Blood pressue cuff #1 ea 09/28/20 [Rx Last Taken Unknown] amiodarone 200 mg tablet 200 mg PO DAILY #90 tab 09/28/20 [Rx Last Taken Unknown] atorvastatin 40 mg tablet 40 mg PO QHS #90 tab 09/28/20 [Rx Last Taken Unknown] folic acid 1 mg tablet 1 mg PO DAILY 09/28/20 [History Last Taken Unknown] mirtazapine 15 mg tablet 15 mg PO QHS tab 09/28/20 [History Last Taken Unknown] finasteride 1 mg tablet 1 mg PO DAILY 12/30/20 [History Last Taken Unknown] hydroxychloroquine 200 mg tablet 200 mg PO BID 12/30/20 [History Last Taken Unknown] miscellaneous medical supply 1 ea MISCELLANEOUS DIRECTED #1 ea 12/30/20 [Rx Last Taken Unknown] prednisone 5 mg tablet 5 mg PO PRN PRN 12/30/20 [History Last Taken Unknown] multivitamin 1 tab PO DAILY 01/01/21 [History Last Taken Unknown] rivaroxaban 20 mg tablet 20 mg PO DAILY #30 tab 04/14/21 [Rx Last Taken Unknown] trazodone 150 mg PO QHS 05/09/21 [History Last Taken Unknown] pantoprazole [Protonix] 40 mg PO DAILY #30 tab 05/11/21 [Rx Last Taken Unknown] Allergy/AdvReac Type Severity Reaction Status Date / Time No Known Allergies Allergy Verified 05/09/21 17:00 Family History Father CVA (cerebral vascular accident) Brother CAD (coronary artery disease) CABG X 3 Mother CVA (cerebral vascular accident) Grandfather Cancer prostate Surgical History H/O colonoscopy H/O umbilical hernia repair History of coronary artery stent placement (08/06/20) S/P appendectomy S/P cataract surgery S/P hemorrhoidectomy S/P inguinal hernia repair S/P laparoscopic cholecystectomy S/P left colectomy S/P rotator cuff repair S/P vasectomy Social History household members: none Smoking Status: Former smoker how long ago did patient quit smokin years ago alcohol intake: never substance use type: does not use diet: low salt caffeine: Yes Type: coffee Number of servings: 4 ROS ROS ED Constitutional Constitutional ED: Denies chills or fever(s) ENT ENT ED: Reports rhinorrhea Cardiovascular Cardiovascular: Denies chest pain or palpitations Respiratory/Chest Respiratory/Chest: Reports cough; Denies dyspnea Gastrointestinal Gastrointestinal: Reports diarrhea; Denies abdominal pain, melena or nausea Genitourinary Genitourinary ED: Denies dysuria or hematuria Musculoskeletal Musculoskeletal: Denies arthralgias or myalgias Integumentary Denies abscess or rash Neurologic Neurologic: Reports headache(s); Denies paresthesias or weakness Psychiatric Psychiatric: Denies anxiety or depression EXAM Physical Exam Const Vital Signs: 05/11/21 01:42 Temperature 97.5 F L Temperature Source Temporal Pulse Rate 68 Respiratory Rate 18 Blood Pressure 105/51 L Blood Pressure Mean 69 Pulse Ox 97 Oxygen Delivery Method Room Air Positive well nourished General Appearance ED: NAD and pallor HEENT Reports moist mucous membranes normocephalic and atraumatic Eyes PERRL and EOMs intact bilaterally Resp normal respiratory effort and clear to auscultation bilaterally Cardio regular rate and regular rhythm GI non-tender Palpation: soft Neuro CN's II-XII intact bilaterally and moves all extremities Sensorium / Orientation: alert, oriented to person, oriented to place and oriented to time Psych mental status grossly normal and thought process normal Skin General Skin Exam: pallor Rashes: no rashes MDM MDM MDM Narrative Medical decision making narrative: Patient presenting with generalized weakness and lightheadedness and had a fall where he hit his head this morning. He states he is unable to stand due to weakness. He has a mild headache. He does admit to some sinus congestion which has been ongoing. He tested negative for COVID-19 yesterday. He states he has been having multiple episodes of diarrhea so I did recheck his blood work from yesterday and his CBC shows no leukocytosis however his hemoglobin is dropped from 13.2-11.9. His renal function is normal. LFTs are normal. Potassium is slightly low at 3.2. This was replaced orally. Patient was given Protonix as well. CT of the brain was negative for acute intracranial findings. Left hip on my interpretation shows no acute fracture or subluxation. Patient was discussed with the hospitalist for admission, however he requested that I speak with Dr. Saul because there is only a slight change in his hemoglobin and currently the hospital volumes for inpatient are very high. I spoke with Dr. Saul regarding the patient and he felt that he could safely follow him up outpatient. He will hold his Xarelto for 5 days. He is counseled not to take his prednisone at home. Patient counseled to avoid anti-inflammatories and to take Tylenol and alternate ice and heat for pain in his left hip. I will put him on a PPI and he will follow-up with Dr. Saul. He was counseled that if he has any bright red bleeding, worsening weakness, shortness of breath or any other signs or symptoms consistent with worsening bleeding he should return to the ER. Patient was able to ambulate to and from the bathroom without difficulty. Impression: 1. GI bleed?stable 2. Diarrhea 3. Anemia 4. Hypokalemia 5. Closed head injury 6. Left hip pain Lab Data Attestation: I reviewed the patient's lab results. Labs: Laboratory Results - last 24 hr 05/11/21 05/11/21 02:36 02:36 WBC 8.5 RBC 3.69 L Hgb 11.9 L Hct 35.6 L MCV 96.5 H MCH 32.2 H MCHC 33.4 RDW Std Deviation 49.6 H RDW Coeff of Jaciel 14.1 Plt Count 161 MPV 9.3 Immature Gran % (Auto) 0.400 Neut % (Auto) 74.6 H Lymph % (Auto) 8.5 L [place] % (Auto) 14.0 H Eos % (Auto) 2.0 Baso % (Auto) 0.5 Absolute Neuts (auto) 6.3 Absolute Lymphs (auto) 0.72 L Nucleated RBC % 0 Sodium 135 L Potassium 3.2 L Chloride 101 Carbon Dioxide 25.0 Anion Gap 9 BUN 13 Creatinine 0.84 Estim Creat Clear Calc 58.33 Est GFR (MDRD) Af Amer 114 Est GFR (MDRD) Non-Af 95 BUN/Creatinine Ratio 15.6 Glucose 97 Calcium 8.0 L Total Bilirubin 0.50 AST 23 ALT 22 Alkaline Phosphatase 55 Total Protein 6.0 L Albumin 2.8 L Globulin 3.2 Albumin/Globulin Ratio 0.9 Radiography Diagnostic Testing: Clinical Impression(s) from Imaging Studies Brain CT 05/11/21 01:57 IMPRESSION: No evidence of intracranial injury or skull fracture. Electronically Signed: Chad Lackey MD at 2:29 EST Tel , Service support , Hip/Pelvis X-Ray 05/11/21 02:39 IMPRESSION: No acute osseous abnormality. Electronically Signed: Chda Lackey MD at 3:18 EST Tel , Service support , Discharge Plan Triage Chief Complaint: Diarrhea ED Provider: Samm Womack Dx/Rx/DC Orders Instructions: ED Anemia, Type Not Specified (Adult), ED Diarrhea, Unknown Cause, ED Head Injury (Adult), ED Upper GI Bleeding (Stable) Prescriptions: New pantoprazole [Protonix] 40 mg tablet,delayed release (DR/EC) 40 mg PO DAILY Qty: 30 RF: 0 No Action folic acid 1 mg tablet 1 mg PO DAILY RF: 0 mirtazapine 15 mg tablet 15 mg PO QHS RF: 0 amiodarone 200 mg tablet 200 mg PO DAILY Qty: 90 RF: 3 atorvastatin 40 mg tablet 40 mg PO QHS Qty: 90 RF: 3 (DME) Blood pressue cuff See Rx Instructions .Route .MEDSUPPLY Qty: 1 RF: 0 multivitamin [Daily Multi-Vitamin] Tablet 1 tab PO DAILY RF: 0 finasteride 1 mg tablet 1 mg PO DAILY RF: 0 hydroxychloroquine [Plaquenil] 200 mg tablet 200 mg PO BID RF: 0 prednisone 5 mg tablet 5 mg PO PRN PRN (Reason: Spasms) RF: 0 miscellaneous medical supply Misc 1 ea miscellaneous DIRECTED Qty: 1 RF: 0 tamsulosin 0.4 MG capsule 0.4 mg PO DAILY@1800 RF: 0 trazodone 100 MG tablet 150 mg PO QHS RF: 0 Xarelto 20 mg tablet 20 mg PO DAILY Qty: 30 RF: 11 Primary Care Provider: Gloria Hazel Referrals: Gloria Hazel MD [Primary Care Provider] - Nikunj Saul DO [STAFF PHYSICIAN] - As soon as possible Activity Restrictions/Additional Instructions: I spoke with Dr. Saul on your behalf. He recommends that you hold your Xarelto for 5 days until he can have you follow-up with him in the office. If you have any bright red blood or worsening shortness of breath or weakness please return to the ER. I would not take your prednisone until follow-up. I am going to place you on Protonix which you should take daily. Disposition Disposition: Home, Self Care
[2021-05-11 05:56] VITALS: BP 115/75; PULSE 75; RESP 16; O2SAT 100
[2021-05-11] MEDS: Potassium Chloride Oral Tablet 20 MEQ 40 MEQ PO (06:00)
[2021-05-11] MEDS: Pantoprazole Sodium 40 MG Tablet PO (06:01)
== END 2021-05-11 06:01 | disposition home or self-care (01) ==
PROVIDERS: Emergency Provider Student in an Organized Health Care Education/Training Program; PCP Family Medicine
DX: K92.2 Gastrointestinal hemorrhage, unspecified (principal); R19.7 Diarrhea, unspecified; D64.9 Anemia, unspecified; E87.6 Hypokalemia; S09.90XA Unspecified injury of head, initial encounter; M25.552 Pain in left hip; W01.190A Fall on same level from slipping, tripping and stumbling with subsequent striking against furniture, initial encounter; Y93.9 Activity, unspecified; Y92.9 Unspecified place or not applicable; Y99.9 Unspecified external cause status; R42 Dizziness and giddiness; R53.1 Weakness; I48.91 Unspecified atrial fibrillation; I25.10 Atherosclerotic heart disease of native coronary artery without angina pectoris; I47.1 Supraventricular tachycardia; M06.9 Rheumatoid arthritis, unspecified; Z79.01 Long term (current) use of anticoagulants; Z79.899 Other long term (current) drug therapy; Z95.5 Presence of coronary angioplasty implant and graft; Z87.891 Personal history of nicotine dependence
CPT/HCPCS: 36415; 70450; 73502; 80053; 82274; 85025; 86850; 86900; 86901; 96360; 96361; 99285; J7030; A4216

== ENCOUNTER → 2021-05-26 14:28 | Outpatient (CLI) | payer MEDICARE, SELFPAY ==
[2021-05-26 14:34] VITALS: BP 114/62; PULSE 86; RESP 16; TEMP 36.9; O2SAT 97; BMI 25.2
[2021-05-26] MEDS: 0.9% NaCl Peripheral Flush Adult/Peds IV (14:42)
[2021-05-26] MEDS: 0.9% NaCl IVPB Med Flush (250 mL) 15 ML IV (14:58)
[2021-05-26 15:54] VITALS: BP 110/57; PULSE 74; RESP 16; TEMP 36.9
== END ==
PROVIDERS: PCP Family Medicine; Referring Provider Internal Medicine Rheumatology; Visit Provider Internal Medicine Rheumatology
DX: M05.70 Rheumatoid arthritis with rheumatoid factor of unspecified site without organ or systems involvement (principal)
CPT/HCPCS: 96365; J7050; A4216; J1602

== ENCOUNTER 2021-06-23 16:27 | Outpatient (CLI) | payer MEDICARE, SELFPAY ==
[2021-06-23 17:44] LABS: Absolute Lymphocyte Count 1.19 X10^3/uL (0.83-4.51); Absolute Neutrophil Count 3.7 X10^3/uL (2.0-7.7); Basophil# 0.02 X10^3/uL; Basophil% 0.4 % (0-1); Eosinophil# 0.01 X10^3/uL; Eosinophils% 0.2 % (0-5); Hematocrit 39.5 % (40-54); Hemoglobin 12.6 g/dL (13.0-16.5); Lymphocyte # 1.19 X10^3/ul (0.83-4.51); Lymphocyte % 22.7 % (19-41); Mean Corp Hgb Conc 31.9 g/dL (32-36); Mean Corpuscular Hgb 31.6 pg (27.0-32.0); Mean Platelet Vol. 9.8 fl (6.2-12.0); Monocyte# 0.32 X10^3/uL; Monocyte% 6.1 % (0-10); NRBC Flagged by Analyzer 0 % (0-5); Neutrophil # 3.68 X10^3/uL (2.7-7.7); Neutrophil % 70.2 % (47-70); Platelet Count 226 K/mm3 (150-450); RBC Distribution Width CV 14.6 % (11.6-14.6); RBC Distribution Width SD 53.5 fl (35.1-43.9); Red Blood Count 3.99 M/mm3 (4.6-6.2); White Blood Count 5.2 K/mm3 (4.4-11.0)
[2021-06-24 07:08] LABS: ALB/GLOB Ratio 1.1 RATIO (0.9-2.4); AST(SGOT) 24 U/L (15-37); Alanine Aminotransfer ALT/SGPT 38 U/L (16-61); Albumin, Serum 3.5 g/dL (3.2-5.0); Alkaline Phosphatase 86 U/L (45-117); Anion Gap 4 (5-15); BUN 12 mg/dL (7-18); BUN/Creat Ratio 13.1 RATIO (10-20); Calcium,Total 8.9 mg/dL (8.5-10.1); Chloride 103 mmol/L (98-107); Creatinine, Serum 0.91 mg/dL (0.70-1.30); EST Glomerular Filtration Rate 85 mL/min (>60); Est Glom Filt Rate - Afr Amer 103 mL/min (>60); Globulin 3.3 g/dL (2.2-4.2); Glucose 142 mg/dL (74-106); Potassium 4.2 mmol/L (3.5-5.1); Protein, Total 6.8 g/dL (6.4-8.2); Sodium Level 139 mmol/L (136-145)
== END 2021-06-23 23:59 | disposition short-term general hospital (02) ==
LOC: MTLAB 16:28
PROVIDERS: PCP Family Medicine; Referring Provider Internal Medicine Rheumatology; Visit Provider Internal Medicine Rheumatology
DX: M05.79 Rheumatoid arthritis with rheumatoid factor of multiple sites without organ or systems involvement (principal); M79.645 Pain in left finger(s); M17.0 Bilateral primary osteoarthritis of knee; G47.00 Insomnia, unspecified; M21.40 Flat foot [pes planus] (acquired), unspecified foot; M47.897 Other spondylosis, lumbosacral region; I87.2 Venous insufficiency (chronic) (peripheral); N40.1 Benign prostatic hyperplasia with lower urinary tract symptoms; Z79.899 Other long term (current) drug therapy
CPT/HCPCS: 36415; 80053; 85025

== ENCOUNTER 2021-07-26 11:17 | Day surgery (SDC) | payer MEDICARE, SELFPAY ==
--- NOTE | 2021-07-26 | COLBX_PTH ---
PATIENT: BRYCE ANN LOC: [facility] U#:[id number] AGE/SX: 80/M ROOM: RE07/26/[address]: Dr. Nikunj Saul DO : 1940 BED: DIS: 07/26/2021 SPEC #: [id number] RECD: 07/26/21 15:03 STATUS: ARMIN SIMONRonald #: [id number] GURDEEP: 07/26/21 00:[address]: Nikunj Saul DEPT: SURGICAL PATHOLOGY RECD BY: Ace Olmos ENTERED: 07/27/21 10:51 SP TYPE: COLON BX MILES DR: Dr. Gloria Hazel MD Tissues: A - Ascending colon B - COLON BIOPSY Procedures: Surgery Specimen Level IV HEADER OPERATION: Colonoscopy, EGD ([facility] [place]) PRE-OP DIAGNOSIS: Anemia, diarrhea TISSUE SUBMITTED: A ? Ascending polyp biopsy, B ? Random colonic biopsy MICROSCOPIC DIAGNOSIS A. Ascending colon polyp, biopsy: Tubular adenoma. B. 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 JORJE:óscar 07/28/2021 MICROSCOPIC DESCRIPTION Slides are reviewed. GROSS DESCRIPTION A - Received in fixative is one container labeled with the patient's name and designated ascending polyp biopsy. The specimen consists of one irregular fragment of light dears soft tissue that measures 0.2 x 0.2 x 0.1 cm. The specimen is totally submitted in one cassette. B - Received in fixative is one container labeled with the patient's name and designated random colon biopsy. The specimen consists of multiple irregular fragments of light deras soft tissue that in aggregate measure 1.5 x 0.5 x 0.1 cm. The specimen is totally submitted in one cassette. / JORJE:óscar 07/27/2021 TC:1 CPT: 12291 x2
--- NOTE | 2021-07-26 11:44 | PCM.HP.BLA ---
History and Physical Date of Admission: 07/26/21 BRYCE ANN, is a 80 M who presents to the office today for evaluation of diarrhea and anemia. He has a past medical history of CAD status post non-ST segment elevation [place] with 2 drug-eluting stents placed on Plavix. He also has a history of ischemic cardiomyopathy with history of arrhythmia on amiodarone therapy. Presented to [facility] ED 05.11.21 for evaluation of weakness, lighteheadedness, diarrhea and fall with head hitting nightstand and hip pain. Noted hemoglobin drop, mild hypokalemia, closed head injury and hip pain. Xarelto was held for five days and stop prednisone while avoiding NSAIDs. Utilize Tyenol for pain relief. He was prescribed protonix 40mg QD during ED stay, he took these for two weeks as his diarrhea resolved during that time. Denies abdominal pain. Reports diarrhea previously, but it was distant enough he does not remember the episode. When hospitalized during 2019 for back surgery he had some GI issues (diarrhea) that were related to heart issues ?I had a light heart attack with stent placed?. Upon return home his BM returned to normal. ROS Const Constitutional: No anorexia, fatigue, fever(s), weight change or sleep problems Eyes Eyes: No change in vision ENT ENT: No abnormal hearing, difficulty swallowing, mouth lesions, tongue swelling or throat swelling Resp Respiratory: No cough or shortness of breath Cardio Cardiology: No chest pain at rest, chest pain with exertion, shortness of breath or dyspnea on exertion Gastro GI: No difficulty swallowing Genitourinary Male: No difficulty urinating or burning urination Musc Musculoskeletal: No joint pain, joint swelling, muscle weakness or decreased muscle mass Skin Skin: No hair loss in leg, yellowing of the eye, itchy eyes, rash, skin ulcer or skin swelling Neuro Neurology: No abnormal hearing, abnormal movements, confusion, unsteady gait/balance or memory loss Psych Psychiatric: No anxiety, No confusion and No memory loss Endo Endocrine: No fatigue or weight change Aller/Imm Allergy/Immunologic: No itchy eyes, throat swelling or tongue swelling Jakob/Lymp Hematologic/Lymphatic: No easy bleeding, easy bruising or enlarged lymph nodes Exam Const General: cooperative and comfortable Nutritional Appearance: average body habitus and well nourished HENMT Head: normal to inspection Ears: hearing grossly normal bilaterally Nose: external nose normal Face and sinus: normal facial exam Mouth: oral mucosae normal Throat: posterior oropharynx normal Eyes General: appearance normal, both eyes and all related structures Neck Neck: normal visual inspection Chest Chest palpation & inspection: normal inspection of the chest and normal palpation of entire chest wall Resp Effort & Inspection: normal respiratory effort Auscultation: Bilateral: Clear to Auscultation Cardio Palpation: normal PMI Rate: regular rate Rhythm: regular rhythm GI Inspection: normal to inspection Auscultation: normal bowel sounds Percussion: normal to percussion Palpation: no hepatosplenomegaly Skin General: no rashes or lesions noted Neuro General: patient alert Extrem General: normal to inspection Psych Affect: normal affect Quality Reporting Tobacco Screening ([facility]) Smoking Status: Former smoker Assessment and Plan Assessment and Plan (1) Anemia: Status: Acute Plan - Dr. Nikunj Saul, DO: Patient was noted to have anemia in the setting of of anticoagulation with Xarelto and Plavix antiplatelet therapy. He should undergo an upper endoscopy because he did have a good response to PPI therapy. We well evaluate his stomach esophagus and upper GI tract to the level of the duodenum to see if there is any signs of acute or chronic GI blood. (2) Diarrhea: Status: Acute Plan - Dr. Calvin Friend, DO: We will evaluate his colon for microscopic colitis, signs or symptoms of lower GI bleed etiology of his diarrhea. He needs a colonoscopy because it has been over 2 in the setting. I have re-examined the patient. There are no clinical changes since date of exam.
[2021-07-26 12:01] VITALS: BP 119/82; PULSE 89; RESP 16; TEMP 36.8; O2SAT 99; BMI 24.5
[2021-07-26] MEDS: Lactated Ringers 1,000 ML 15 ML IV (12:11)
--- NOTE | 2021-07-26 13:08 | OP.EGD_ITS ---
Patient Name: Justo Rodriguez Procedure Date: 07/26/2021 12:39 PM Date of : 1940 Age: 80 Procedure: Upper GI endoscopy Indications: Iron deficiency anemia Providers: Nikunj Saul DO Medicines: See the Anesthesia note for documentation of the administered medications Patient Profile: This is a 80 year old male. Refer to note in patient chart for documentation of history and physical. Patient has symptoms. He is status post colonoscopy (normal) within the past several years. Complications: No immediate complications. Procedure: Pre-Anesthesia Assessment: - Prior to the procedure, a History and Physical was performed, and patient medications and allergies were reviewed. The risks and benefits of the procedure and the sedation options and risks were discussed with the patient. All questions were answered and informed consent was obtained. Patient identification and proposed procedure were verified by the physician in the pre-procedure area. Mental Status Examination: alert and oriented. Airway Examination: normal oropharyngeal airway and neck mobility. Respiratory Examination: clear to auscultation. CV Examination: normal. Prophylactic Antibiotics: The patient does not require prophylactic antibiotics. Prior Anticoagulants: The patient has taken no previous anticoagulant or antiplatelet agents. ASA Grade Assessment: II - A patient with mild systemic disease. After reviewing the risks and benefits, the patient was deemed in satisfactory condition to undergo the procedure. The anesthesia plan was to use moderate sedation / analgesia (conscious sedation). Immediately prior to administration of medications, the patient was re-assessed for adequacy to receive sedatives. The heart rate, respiratory rate, oxygen saturations, blood pressure, adequacy of pulmonary ventilation, and response to care were monitored throughout the procedure. The physical status of the patient was re-assessed after the procedure. After obtaining informed consent, the endoscope was passed under direct vision. Throughout the procedure, the patient's blood pressure, pulse, and oxygen saturations were monitored continuously. The Colonoscope was introduced through the mouth, and advanced to the second part of duodenum. The upper GI endoscopy was accomplished without difficulty. The patient tolerated the procedure well. Moderate Sedation: Moderate (conscious) sedation was administered by the endoscopy nurse and supervised by the endoscopist. The patient's oxygen saturation, heart rate, blood pressure and response to care were monitored. Total physician intraservice time was 15 minutes. Scope In: 12:54:51 PM Scope Out: 1:03:17 PM Total Procedure Duration Time 0 hours 8 minutes 26 seconds Findings: The examined esophagus was normal. Red blood was found in the gastric fundus. A small hiatal hernia was seen. Four 5 mm bleeding angiodysplastic lesions were found in the gastric fundus. Coagulation for hemostasis using argon plasma at 0.3 liters/minute and 20 latham was successful. Estimated blood loss was minimal. The second portion of the duodenum was normal. Impression: - Normal esophagus. - Red blood in the gastric fundus. 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 Treated with argon plasma coagulation (APC). - Normal second portion of the duodenum. - No specimens collected. Recommendation: - Written discharge instructions were provided to the patient. - The signs and symptoms of potential delayed complications were discussed with the patient. - Patient has a contact number available for emergencies. - Return to normal activities tomorrow. - Resume previous diet. - Continue present medications. Procedure Code(s): --- Professional --- 70561, Esophagogastroduodenoscopy, flexible, transoral; with control of bleeding, any method 19829, 59, Moderate sedation services provided by the same physician or other qualified health aged or disabled carer performing the diagnostic or therapeutic service that the sedation supports, requiring the presence of an independent trained observer to assist in the monitoring of the patient's level of consciousness and physiological status; initial 15 minutes of intraservice time, patient age 5 years or older CPT copyright 2017 [employer]. All rights reserved. The codes documented in this report are preliminary and upon home based assistant review may be revised to meet current compliance requirements. Nikunj Saul DO 07/26/2021 1:07:48 PM This report has been signed electronically. Number of Addenda: 1 Note Initiated On: 07/26/2021 12:39 PM Addendum Number: 1 Addendum Date: 02/11/2022 5:56:10 PM MAC was used rather than mod for this procedures sedation. Nikunj Saul DO 02/11/2022 5:57:06 PM This report has been signed electronically.
--- NOTE | 2021-07-26 13:09 | OP.CCLET_ITS ---
02/11/2022 Gloria Hazel [address] [place] [address] Re : Upper GI endoscopy procedure for Justo Rodriguez Dear Dr. Hazel This procedure was performed on Monday, July 26, 2021. My impressions and recommendations are as follows: Impressions : - Normal esophagus. - Red blood in the gastric fundus. 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 Treated with argon plasma coagulation (APC). - Normal second portion of the duodenum. - No specimens collected. Recommendations : - Written discharge instructions were provided to the patient. - The signs and symptoms of potential delayed complications were discussed with the patient. - Patient has a contact number available for emergencies. - Return to normal activities tomorrow. - Resume previous diet. - Continue present medications. My findings are described in the full procedure note, which is enclosed. If I can be of further assistance, please feel free to contact me at . Sincerely, Nikunj Saul DO 07/26/2021 1:07:48 PM This report has been signed electronically.
[2021-07-26 13:35] VITALS: BP 119/82; BP 130/65; PULSE 61; RESP 16; TEMP 36.2; O2SAT 100
--- NOTE | 2021-07-26 13:38 | OP.CCLET_ITS ---
02/11/2022 Gloria Hazel [address] [place] [address] Re : Colonoscopy procedure for Justo Rodriguez Dear Dr. Hazel This procedure was performed on Monday, July 26, 2021. My impressions and recommendations are as follows: Impressions : - One 5 mm polyp in the ascending colon, removed with a hot snare. Resected and retrieved. - Congested mucosa in the sigmoid colon, in the descending colon, in the transverse colon, at the hepatic flexure and in the ascending colon. Biopsied. Recommendations : - Discharge patient to home. - Resume previous diet. - Continue present medications. - Await pathology results. - Repeat colonoscopy in 5 years for surveillance. - Return to GI office. My findings are described in the full procedure note, which is enclosed. If I can be of further assistance, please feel free to contact me at . Sincerely, Nikunj Saul, 07/26/2021 1:37:20 PM This report has been signed electronically.
--- NOTE | 2021-07-26 13:38 | OP.COLON_ITS ---
Patient Name: Justo Rodriguez Procedure Date: 07/26/2021 1:03 PM Date of : 1940 Age: 80 Procedure: Colonoscopy Indications: Chronic diarrhea Providers: Nikunj Saul DO Medicines: See the Anesthesia note for documentation of the administered medications Patient Profile: This is a 80 year old male. Refer to note in patient chart for documentation of history and physical. Patient has symptoms. He is status post colonoscopy (normal) within the past several years. He is status post colonoscopy (normal) within the past several years. Last Colonoscopy: more than 10 years ago. Complications: No immediate complications. Procedure: Pre-Anesthesia Assessment: - Prior to the procedure, a History and Physical was performed, and patient medications and allergies were reviewed. The risks and benefits of the procedure and the sedation options and risks were discussed with the patient. All questions were answered and informed consent was obtained. Patient identification and proposed procedure were verified by the physician in the pre-procedure area. Mental Status Examination: alert and oriented. Airway Examination: normal oropharyngeal airway and neck mobility. Respiratory Examination: clear to auscultation. CV Examination: normal. Prophylactic Antibiotics: The patient does not require prophylactic antibiotics. Prior Anticoagulants: The patient has taken no previous anticoagulant or antiplatelet agents. ASA Grade Assessment: II - A patient with mild systemic disease. After reviewing the risks and benefits, the patient was deemed in satisfactory condition to undergo the procedure. The anesthesia plan was to use moderate sedation / analgesia (conscious sedation). Immediately prior to administration of medications, the patient was re-assessed for adequacy to receive sedatives. The heart rate, respiratory rate, oxygen saturations, blood pressure, adequacy of pulmonary ventilation, and response to care were monitored throughout the procedure. The physical status of the patient was re-assessed after the procedure. After I obtained informed consent, the scope was passed under direct vision. Throughout the procedure, the patient's blood pressure, pulse, and oxygen saturations were monitored continuously. The Colonoscope was introduced through the anus and advanced to the terminal ileum. The colonoscopy was performed without difficulty. The patient tolerated the procedure well. The quality of the bowel preparation was good. Moderate Sedation: Moderate (conscious) sedation was administered by the endoscopy nurse and supervised by the endoscopist. The patient's oxygen saturation, heart rate, blood pressure and response to care were monitored. Total physician intraservice time was 15 minutes. Scope In: 1:10:04 PM Scope Withdrawal Time 0 hours 13 minutes 24 seconds Scope Out: 1:30:49 PM Total Procedure Duration Time 0 hours 20 minutes 45 seconds Findings: The perianal and digital rectal examinations were normal. A 5 mm polyp was found in the ascending colon. The polyp was sessile. The polyp was removed with a hot snare. Resection and retrieval were complete. Estimated blood loss: none. An area of mildly congested mucosa was found in the sigmoid colon, in the descending colon, in the transverse colon, at the hepatic flexure and in the ascending colon. Biopsies were taken with a cold forceps for histology. Verification of patient identification for the specimen was done. Estimated blood loss was minimal. A single medium-sized localized angiodysplastic lesion with bleeding was found in the cecum. Coagulation for hemostasis using argon plasma at 0.3 liters/minute and 20 latham was successful. Estimated blood loss was minimal. Impression: - One 5 mm polyp in the ascending colon, removed with a hot snare. Resected and retrieved. - Congested mucosa in the sigmoid colon, in the descending colon, in the transverse colon, at the hepatic flexure and in the ascending colon. Biopsied. Recommendation: - Discharge patient to home. - Resume previous diet. - Continue present medications. - Await pathology results. - Repeat colonoscopy in 5 years for surveillance. - Return to GI office. Procedure Code(s): --- Professional --- 79050, 59, Colonoscopy, flexible; with control of bleeding, any method 24908, Colonoscopy, flexible; with removal of tumor(s), polyp(s), or other lesion(s) by snare technique 61095, 59, Colonoscopy, flexible; with biopsy, single or multiple 43630, 59, Moderate sedation services provided by the same physician or other qualified health foster care social worker performing the diagnostic or therapeutic service that the sedation supports, requiring the presence of an independent trained observer to assist in the monitoring of the patient's level of consciousness and physiological status; initial 15 minutes of intraservice time, patient age 5 years or older CPT copyright 2017 [employer]. All rights reserved. The codes documented in this report are preliminary and upon harp action assembler review may be revised to meet current compliance requirements. Nikunj Saul DO 07/26/2021 1:37:20 PM This report has been signed electronically. Number of Addenda: 1 Note Initiated On: 07/26/2021 1:03 PM Addendum Number: 1 Addendum Date: 02/11/2022 5:57:35 PM MAC was used rather than mod for this procedures sedation. Nikunj Saul DO 02/11/2022 5:57:50 PM This report has been signed electronically.
[2021-07-26 13:40] VITALS: BP 119/82; BP 130/70; PULSE 63; RESP 16; O2SAT 99
[2021-07-26 13:45] VITALS: BP 119/82; BP 125/69; PULSE 60; RESP 16; O2SAT 99
[2021-07-26 13:50] VITALS: BP 119/82; BP 138/67; PULSE 61; RESP 16; TEMP 36.6; O2SAT 100
== END 2021-07-26 23:59 | disposition home or self-care (01) ==
LOC: EN 11:19 → AC 11:24
PROVIDERS: PCP Family Medicine; Referring Provider Family Medicine; Visit Provider Internal Medicine Gastroenterology
PROC: 0DJD8ZZ Inspection of Lower Intestinal Tract, Via Natural or Artificial Opening Endoscopic (ICD-10-PCS; CPT 45378; principal; 2021-07-26 12:10)
DX: K31.811 Angiodysplasia of stomach and duodenum with bleeding (principal); M06.9 Rheumatoid arthritis, unspecified; I48.91 Unspecified atrial fibrillation; K52.9 Noninfective gastroenteritis and colitis, unspecified; K44.9 Diaphragmatic hernia without obstruction or gangrene; D12.2 Benign neoplasm of ascending colon; D64.9 Anemia, unspecified; K63.89 Other specified diseases of intestine; I25.10 Atherosclerotic heart disease of native coronary artery without angina pectoris; I25.2 Old myocardial infarction; Z95.5 Presence of coronary angioplasty implant and graft; Z79.02 Long term (current) use of antithrombotics/antiplatelets; Z87.891 Personal history of nicotine dependence; Z79.899 Other long term (current) drug therapy; Z79.01 Long term (current) use of anticoagulants; K55.21 Angiodysplasia of colon with hemorrhage
CPT/HCPCS: 43255; 45385; 45380; 45382; 88305; J7120; J2405

== ENCOUNTER 2021-08-02 17:51 | Emergency (ER) | payer MEDICARE, SELFPAY ==
[2021-08-02 17:52] VITALS: BP 149/74; PULSE 79; RESP 16; TEMP 36.3; O2SAT 100; BMI 24.7
[2021-08-02 18:17] LABS: Absolute Lymphocyte Count 1.77 X10^3/uL (0.83-4.51); Absolute Neutrophil Count 3.2 X10^3/uL (2.0-7.7); Basophil# 0.04 X10^3/uL; Basophil% 0.7 % (0-1); Eosinophil# 0.15 X10^3/uL; Eosinophils% 2.5 % (0-5); Hematocrit 34.2 % (40-54); Hemoglobin 11.5 g/dL (13.0-16.5); Lymphocyte # 1.77 X10^3/ul (0.83-4.51); Lymphocyte % 29.9 % (19-41); Mean Corp Hgb Conc 33.6 g/dL (32-36); Mean Corpuscular Hgb 32.7 pg (27.0-32.0); Mean Corpuscular Volume 97.2 fL (80-94); Mean Platelet Vol. 9.4 fl (6.2-12.0); Monocyte# 0.75 X10^3/uL; Monocyte% 12.7 % (0-10); NRBC Flagged by Analyzer 0 % (0-5); Neutrophil # 3.19 X10^3/uL (2.7-7.7); Platelet Count 178 K/mm3 (150-450); RBC Distribution Width CV 15.1 % (11.6-14.6); RBC Distribution Width SD 53.1 fl (35.1-43.9); Red Blood Count 3.52 M/mm3 (4.6-6.2); White Blood Count 5.9 K/mm3 (4.4-11.0)
[2021-08-02 18:34] LABS: Anion Gap 6 (5-15); BUN 18 mg/dL (7-18); BUN/Creat Ratio 16.7 RATIO (10-20); Calcium,Total 8.8 mg/dL (8.5-10.1); Chloride 107 mmol/L (98-107); Creatinine, Serum 1.08 mg/dL (0.70-1.30); EST Glomerular Filtration Rate 70 mL/min (>60); Est Glom Filt Rate - Afr Amer 85 mL/min (>60); Estimated Creatinine Clearance 45.37 ml/min; Glucose 97 mg/dL (74-106); Potassium 3.7 mmol/L (3.5-5.1); Sodium Level 140 mmol/L (136-145)
--- NOTE | 2021-08-02 18:41 | EX.ED.DYSGE1 ---
HPI History of Present Illness Chief Complaint: GI Bleed Informant: patient Narrative Narrative: Patient presents with bright red blood per rectum. He states he woke up this morning about 6 AM and had blood in his clothing in the bed. He had intermittent bleeding of bright red blood until about 9 AM. It seems to have stopped since then. He has had 2 bowel movements since but it has been brown stool and not black. He had a small amount of blood with wiping only. He states he had a little cramping of his abdomen earlier but it seems better. No fevers chills or sweats. He does not feel lightheaded or dizzy. He is on Plavix and Xarelto. He has not taken his Xarelto yet tonight. He also had a colonoscopy about 7 days ago. He did have 1 polyp removed. He did well with this and had no bleeding afterwards. He has been eating and drinking normally. Nothing really makes today symptoms better or worse. [facility] Medical History Abnormal echocardiogram Abnormal EKG Anemia Atherosclerotic heart disease of [place] coronary artery without angina pectoris Back pain Cardiology follow-up encounter Easy bruising Edema Former smoker H/o finger stitches H/o three feet of intestines removed Hemorrhoids History of atrial fibrillation History of echocardiogram History of edema History of heart attack History of irregular heartbeat History of steroid therapy History of stress test Left ventricular hypokinesis Leg pain, bilateral PAT (paroxysmal atrial tachycardia) Rheumatoid arthritis Shortness of breath on exertion SVT (supraventricular tachycardia) Syncope Wears glasses Home Medications tamsulosin 0.4 mg PO DAILY@1800 07/18/20 [History Last Taken 08/11/20 18:32] Blood pressue cuff #1 ea 09/28/20 [Rx Last Taken Unknown] amiodarone 200 mg tablet 200 mg PO DAILY #90 tab 09/28/20 [Rx Last Taken 07/26/21 200 MG] folic acid 1 mg tablet 1 mg PO DAILY 09/28/20 [History Last Taken Unknown] mirtazapine 15 mg tablet 15 mg PO QHS tab 09/28/20 [History Last Taken Unknown] finasteride 1 mg tablet 1 mg PO DAILY 12/30/20 [History Last Taken Unknown] hydroxychloroquine 200 mg tablet 200 mg PO BID 12/30/20 [History Last Taken Unknown] miscellaneous medical supply 1 ea MISCELLANEOUS DIRECTED #1 ea 12/30/20 [Rx Last Taken Unknown] prednisone 5 mg tablet 5 mg PO PRN PRN 12/30/20 [History Last Taken Unknown] multivitamin 1 tab PO DAILY 01/01/21 [History Last Taken Unknown] trazodone 150 mg PO QHS 05/09/21 [History Last Taken Unknown] rivaroxaban 20 mg tablet 20 mg PO DAILY #90 tab 06/01/21 [Rx Last Taken 07/22/21] clopidogrel 75 mg tablet 75 mg PO DAILY 06/03/21 [History Last Taken 07/22/21] atorvastatin [Lipitor] 40 mg PO QHS 07/23/21 [History Last Taken Unknown] Allergy/AdvReac Type Severity Reaction Status Date / Time No Known Allergies Allergy Verified 07/26/21 12:00 Family History Father CVA (cerebral vascular accident) Brother CAD (coronary artery disease) CABG X 3 Mother CVA (cerebral vascular accident) Grandfather Cancer prostate Surgical History H/O colonoscopy H/O umbilical hernia repair History of cardiac catheterization History of coronary artery stent placement (08/06/20) History of coronary artery stent placement Hx of colectomy Hx of laminectomy Hx of transurethral resection of prostate S/P appendectomy S/P cataract surgery S/P hemorrhoidectomy S/P inguinal hernia repair S/P laparoscopic cholecystectomy S/P left colectomy S/P rotator cuff repair S/P vasectomy Social History household members: none Smoking Status: Former smoker how long ago did patient quit smokin years ago alcohol intake: never substance use type: does not use diet: low salt caffeine: Yes Type: coffee Number of servings: 4 ROS ROS ED Constitutional Constitutional ED: Denies chills or fever(s) Eyes Eyes: Denies change in vision ENT ENT ED: Denies rhinorrhea or sore throat Cardiovascular Cardiovascular: Denies chest pain, palpitations or racing heartbeat Respiratory/Chest Respiratory/Chest: Denies dyspnea Gastrointestinal Gastrointestinal: Reports other Details: Cramping and bright red blood as in history of present illness. ; Denies constipation, diarrhea, melena, nausea or vomiting Genitourinary Genitourinary ED: Denies hematuria Musculoskeletal Musculoskeletal: Denies myalgias Integumentary Denies rash Neurologic Neurologic: Denies weakness Endocrine Endocrinology: Denies polydipsia or polyuria Allergic/Immunologic Allergic/Immunologic ED: Denies urticaria EXAM Physical Exam Const Vital Signs: 08/02/21 17:52 08/02/21 20:11 Temperature 97.3 F L Temperature Source Temporal Pulse Rate 79 60 Respiratory Rate 16 15 Blood Pressure 149/74 H 124/64 H Blood Pressure Mean 99 84 Pulse Ox 100 96 Oxygen Delivery Method Room Air Room Air Positive well nourished and well developed General Appearance ED: well developed and NAD; Negative for cyanotic, diaphoretic or pallor HEENT Reports moist mucous membranes Eyes General Eye ED: Negative for pale conjunctiva or scleral icterus Neck no JVD Resp normal respiratory effort and clear to auscultation bilaterally Cardio regular rate and regular rhythm Rate: other Other Details: Heart sounds regular on exam. GI normal to inspection, nondistended, normoactive bowel sounds, non-tender and non-distended GI Narrative: Bowel sounds are normal and not increased or decreased. Abdomen is overall benign. Rectal exam shows some brown stool. He has a very small hemorrhoid that is not inflamed. No sign of active bleeding or gross blood on exam. With his history, I did not do Hemoccult as I am certain that would be positive. However, there is no gross bleeding. Palpation: soft Back/Spine no CVA tenderness Extremity normal to inspection Neuro oriented x3 Sensorium / Orientation: alert Psych mental status grossly normal Skin no rashes or lesions noted General Skin Exam: Negative for jaundice or pallor MDM MDM MDM Narrative Medical decision making narrative: Patient CBC shows hemoglobin of 11 5. This is a minimal change from recent. Platelets are normal. Electrolytes are unremarkable. CT shows no acute process. Patient has been up walking here without any problems. He is gone to the restroom. He urinated. He said no further bleeding. I did discuss the case with Dr. Saul. This is a unique situation. Although he is older and on blood thinners, he has not had bleeding for 12 hours. His hemoglobin is essentially stable. He likely had dislodgment of the clot from the polyp that was excised. Dr. Saul recommend holding his Xarelto and Plavix. I discussed this with the patient. If he has any further symptoms he should return as he may need to be observed at that time. Patient is comfortable with going home and all questions were answered. Lab Data Attestation: I reviewed the patient's lab results. Labs: Laboratory Results - last 24 hr 08/02/21 08/02/21 18:10 18:10 WBC 5.9 RBC 3.52 L Hgb 11.5 L Hct 34.2 L MCV 97.2 H MCH 32.7 H MCHC 33.6 RDW Std Deviation 53.1 H RDW Coeff of Jaciel 15.1 H Plt Count 178 MPV 9.4 Immature Gran % (Auto) 0.200 Neut % (Auto) 54.0 Lymph % (Auto) 29.9 [place] % (Auto) 12.7 H Eos % (Auto) 2.5 Baso % (Auto) 0.7 Absolute Neuts (auto) 3.2 Absolute Lymphs (auto) 1.77 Nucleated RBC % 0 Sodium 140 Potassium 3.7 Chloride 107 Carbon Dioxide 27.0 Anion Gap 6 BUN 18 Creatinine 1.08 Estim Creat Clear Calc 45.37 Est GFR (MDRD) Af Amer 85 Est GFR (MDRD) Non-Af 70 BUN/Creatinine Ratio 16.7 Glucose 97 Calcium 8.8 Radiography Diagnostic Testing: Clinical Impression(s) from Imaging Studies Abdomen/Pelvis CT 08/02/21 18:43 IMPRESSION: No acute or inflammatory disease or bowel obstruction Electronically Signed: Herrera Durán MD at 19:25 EST Reading Location ID and State: [facility] / [place] Tel , Service support , Discharge Plan Triage Chief Complaint: GI Bleed ED Provider: Jonel Buchanan Dx/Rx/DC Orders Clinical Impression: BRBPR (bright red blood per rectum), Coagulopathy Instructions: ED Lower GI Bleeding (Stable) Prescriptions: No Action folic acid 1 mg tablet 1 mg PO DAILY RF: 0 mirtazapine 15 mg tablet 15 mg PO QHS RF: 0 amiodarone 200 mg tablet 200 mg PO DAILY Qty: 90 RF: 3 (DME) Blood pressue cuff See Rx Instructions .Route .MEDSUPPLY Qty: 1 RF: 0 multivitamin [Daily Multi-Vitamin] Tablet 1 tab PO DAILY RF: 0 finasteride 1 mg tablet 1 mg PO DAILY RF: 0 hydroxychloroquine [Plaquenil] 200 mg tablet 200 mg PO BID RF: 0 prednisone 5 mg tablet 5 mg PO PRN PRN (Reason: Spasms) RF: 0 miscellaneous medical supply Misc 1 ea miscellaneous DIRECTED Qty: 1 RF: 0 tamsulosin 0.4 MG capsule 0.4 mg PO DAILY@1800 RF: 0 trazodone 100 MG tablet 150 mg PO QHS RF: 0 atorvastatin [Lipitor] 40 mg tablet 40 mg PO QHS RF: 0 Xarelto 20 mg tablet 20 mg PO DAILY Qty: 90 RF: 4 clopidogrel 75 mg tablet 75 mg PO DAILY RF: 0 Primary Care Provider: Gloria Hazel Referrals: Gloria Hazel MD [Primary Care Provider] - Nikunj Saul DO [STAFF PHYSICIAN] - 1-2 Days if not improving Disposition Disposition: Home, Self Care
--- NOTE | 2021-08-02 18:43 | CT_ITS ---
EXAM: CT ABDOMEN AND PELVIS WITH INTRAVENOUS CONTRAST CLINICAL INDICATION: pain TECHNIQUE: Helically acquired images were obtained of the abdomen and pelvis with intravenous contrast. CTDIvol = ( 13.28 ) mGy, DLP = ( 458.18 ) mGycm This CT exam was performed using one or more of the following dose reduction techniques: automated exposure control, adjustment of the mA and/or kV according to patient size, and/or use of iterative reconstruction technique. This report was created using [employer] report generation technology. CONTRAST: IV 100mL Isovue-300 COMPARISON: 07/13/2020 FINDINGS: LOWER THORAX: Unremarkable. Lung bases are clear. No cardiomegaly. No significant pericardial effusion. ABDOMEN: LIVER: Hypodense lesion at the right dome the liver with irregular shape measuring 3.2 x 3 0 cm. Density is compatible with a cyst. 1.4 cm hypodense lesion involving the right lobe of liver disc is nonspecific. Differential may include hemangioma however. GALLBLADDER AND BILE DUCTS: Intrahepatic biliary ductal dilatation and dilated extrahepatic common duct without definite choledocholithiasis. No gallbladder distention or wall edema. PANCREAS: Unremarkable. No focal cystic or solid mass. SPLEEN: Unremarkable. Normal size without focal cystic or solid mass. ADRENALS: Unremarkable. No nodules. KIDNEYS AND URETERS: Unremarkable. Normal renal size and position. No hydronephrosis. STOMACH AND BOWEL: Colonic diverticulosis without acute diverticulitis. No colitis or bowel obstruction. PELVIS: APPENDIX: No evidence of acute appendicitis. BLADDER: Unremarkable. REPRODUCTIVE: Unremarkable as visualized. No mass. ABDOMEN and PELVIS: INTRAPERITONEAL SPACE: Unremarkable. No ascites or other fluid collection. No free air. BONES/JOINTS: No suspicious lytic or splenic lesions of bone. Posterior decompression at multiple levels and spine. Grade 1 degenerative anterolisthesis of L4 on L5 with no pars defects. Diffuse osteopenia of the spine. SOFT TISSUES: Abdomen fluid and small fluid density contained within a left inguinal hernia. VASCULATURE: Unremarkable. Abdominal aorta is non-dilated. LYMPH NODES: Unremarkable. No enlarged lymph nodes. CT/Abdomen/Pelvis W IV Cont ONLY IMPRESSION: No acute or inflammatory disease or bowel obstruction Electronically Signed: Herrera Durán MD at 19:25 EST ,
[2021-08-02 20:11] VITALS: BP 124/64; PULSE 60; RESP 15; O2SAT 96
[2021-08-02 21:20] VITALS: BP 126/69; PULSE 70
== END 2021-08-02 21:21 | disposition home or self-care (01) ==
PROVIDERS: Emergency Provider Emergency Medicine; PCP Family Medicine; Visit Provider Emergency Medicine
DX: K62.5 Hemorrhage of anus and rectum (principal); D68.9 Coagulation defect, unspecified; I25.10 Atherosclerotic heart disease of native coronary artery without angina pectoris; Z87.891 Personal history of nicotine dependence; Z79.01 Long term (current) use of anticoagulants; Z95.5 Presence of coronary angioplasty implant and graft
CPT/HCPCS: 74177; 80048; 85025; 99282; Q9967; A4216

== ENCOUNTER 2021-08-09 13:02 | Outpatient (CLI) | payer MEDICARE, SELFPAY ==
[2021-08-09 13:12] VITALS: BP 107/54; PULSE 73; RESP 16; TEMP 36.6; O2SAT 96; BMI 26.1
[2021-08-09] MEDS: 0.9% NaCl Peripheral Flush Adult/Peds IV (13:24)
[2021-08-09] MEDS: 0.9% NaCl IVPB Med Flush (250 mL) 15 ML IV (13:24)
[2021-08-09 14:09] VITALS: BP 85/43; PULSE 72; RESP 16; TEMP 36.9; O2SAT 94
== END 2021-08-09 23:59 | disposition home or self-care (01) ==
LOC: MEDOUTP 13:03
PROVIDERS: PCP Family Medicine; Referring Provider Internal Medicine Rheumatology; Visit Provider Internal Medicine Rheumatology
DX: M05.70 Rheumatoid arthritis with rheumatoid factor of unspecified site without organ or systems involvement (principal)
CPT/HCPCS: 96365; J7050; A4216; J1602

== ENCOUNTER 2021-08-30 13:21 | Outpatient (CLI) | payer MEDICARE, SELFPAY ==
--- NOTE | 2021-08-30 13:39 | MRI_ITS ---
STUDY: MR MRCP WITHOUT CONTRAST REASON FOR EXAM: Male, 80 years old. ampulla of vater mass TECHNIQUE: Standard MRCP technique was utilized. Three-dimensional reconstruction images provided. Limited by motion artifact. COMPARISON: 08/02/2021 CT FINDINGS: Gall Bladder: Gall bladder is surgically absent. Cystic duct: Cystic duct was not well visualized. Intrahepatic ducts: Mild intrahepatic bile duct dilation. Common hepatic duct: Slight dilation (7.6 mm) with no demonstrated fixed filling defect or stricture. Common bile duct: Slight dilation (8.0 mm) with no demonstrated fixed filling defect or stricture. Pancreatic duct: Normal with no demonstrated fixed filling defect, dilation or stricture. MRI/MRCP Abdomen without Contrast IMPRESSION: 1. Mild biliary dilation (possibly due to increased capacitance following cholecystectomy) without biliary obstruction or choledocholithiasis. 2. Cholecystectomy. Electronically Signed: Jose Santacruz MD ([place]) at 9:56 EDT ,
== END 2021-08-30 23:59 | disposition home or self-care (01) ==
PROVIDERS: PCP Family Medicine; Referring Provider Internal Medicine Gastroenterology; Visit Provider Internal Medicine Gastroenterology
DX: K83.1 Obstruction of bile duct (principal)
CPT/HCPCS: 74181

== ENCOUNTER 2021-09-07 16:08 | Outpatient (CLI) | payer MEDICARE, SELFPAY ==
[2021-09-07 17:23] LABS: Absolute Lymphocyte Count 0.32 X10^3/uL (0.83-4.51); Absolute Neutrophil Count 5.2 X10^3/uL (2.0-7.7); Basophil# 0.04 X10^3/uL; Basophil% 0.7 % (0-1); Eosinophil# 0.06 X10^3/uL; Hematocrit 33.6 % (40-54); Hemoglobin 10.9 g/dL (13.0-16.5); Lymphocyte # 0.32 X10^3/ul (0.83-4.51); Lymphocyte % 5.4 % (19-41); Mean Corp Hgb Conc 32.4 g/dL (32-36); Mean Corpuscular Hgb 31.1 pg (27.0-32.0); Mean Corpuscular Volume 95.7 fL (80-94); Mean Platelet Vol. 9.8 fl (6.2-12.0); Monocyte# 0.21 X10^3/uL; Monocyte% 3.6 % (0-10); NRBC Flagged by Analyzer 0 % (0-5); Neutrophil # 5.24 X10^3/uL (2.7-7.7); POSITIVE DIFFERENTIAL YES; Platelet Count 191 K/mm3 (150-450); RBC Distribution Width CV 14.5 % (11.6-14.6); RBC Distribution Width SD 50.3 fl (35.1-43.9); Red Blood Count 3.51 M/mm3 (4.6-6.2); White Blood Count 5.9 K/mm3 (4.4-11.0)
[2021-09-07 17:29] LABS: Differential Indicated SCAN CRITERIA MET
[2021-09-07 18:05] LABS: ALB/GLOB Ratio 1.1 RATIO (0.9-2.4); AST(SGOT) 32 U/L (15-37); Alanine Aminotransfer ALT/SGPT 34 U/L (16-61); Albumin, Serum 3.4 g/dL (3.2-5.0); Alkaline Phosphatase 60 U/L (45-117); Anion Gap 4 (5-15); BUN 14 mg/dL (7-18); BUN/Creat Ratio 13.9 RATIO (10-20); Calcium,Total 8.7 mg/dL (8.5-10.1); Chloride 108 mmol/L (98-107); Creatinine, Serum 1.01 mg/dL (0.70-1.30); EST Glomerular Filtration Rate 76 mL/min (>60); Est Glom Filt Rate - Afr Amer 92 mL/min (>60); Globulin 3.1 g/dL (2.2-4.2); Glucose 104 mg/dL (74-106); Potassium 4.1 mmol/L (3.5-5.1); Protein, Total 6.5 g/dL (6.4-8.2); Sodium Level 139 mmol/L (136-145)
[2021-09-07 18:07] LABS: Differential Comment SCANNED
== END 2021-09-07 23:59 | disposition home or self-care (01) ==
LOC: MTLAB 16:09
PROVIDERS: PCP Family Medicine; Referring Provider Internal Medicine Rheumatology; Visit Provider Internal Medicine Rheumatology
DX: M79.645 Pain in left finger(s) (principal); M17.0 Bilateral primary osteoarthritis of knee; G47.00 Insomnia, unspecified; M21.40 Flat foot [pes planus] (acquired), unspecified foot; M47.897 Other spondylosis, lumbosacral region; I87.2 Venous insufficiency (chronic) (peripheral); N40.1 Benign prostatic hyperplasia with lower urinary tract symptoms; Z79.899 Other long term (current) drug therapy
CPT/HCPCS: 36415; 80053; 85025

== ENCOUNTER 2021-09-13 15:51 | Outpatient (CLI) | payer MEDICARE, SELFPAY ==
[2021-09-13 17:32] LABS: Absolute Lymphocyte Count 1.44 X10^3/uL (0.83-4.51); Absolute Neutrophil Count 3.4 X10^3/uL (2.0-7.7); Basophil# 0.04 X10^3/uL; Basophil% 0.7 % (0-1); Eosinophil# 0.23 X10^3/uL; Eosinophils% 3.9 % (0-5); Hematocrit 38.1 % (40-54); Hemoglobin 12.2 g/dL (13.0-16.5); Lymphocyte # 1.44 X10^3/ul (0.83-4.51); Lymphocyte % 24.7 % (19-41); Mean Corpuscular Hgb 30.7 pg (27.0-32.0); Mean Corpuscular Volume 95.7 fL (80-94); Mean Platelet Vol. 9.9 fl (6.2-12.0); Monocyte# 0.68 X10^3/uL; Monocyte% 11.7 % (0-10); NRBC Flagged by Analyzer 0 % (0-5); Neutrophil # 3.42 X10^3/uL (2.7-7.7); Neutrophil % 58.7 % (47-70); Platelet Count 199 K/mm3 (150-450); RBC Distribution Width CV 14.5 % (11.6-14.6); RBC Distribution Width SD 50.2 fl (35.1-43.9); Red Blood Count 3.98 M/mm3 (4.6-6.2); White Blood Count 5.8 K/mm3 (4.4-11.0)
[2021-09-13 17:51] LABS: Erythrocyte Sedimentation Rate 10 mm/hr (0-20)
[2021-09-13 18:01] LABS: Cholesterol 152 mg/dL (200); High Density Lipoprotein 86 mg/dL; Thyroid Stim Hormone (TSH) 2.19 uIU/mL (0.358-3.74); Triglycerides 76 mg/dL; Very Low Density Lipoprotein 15 mg/dL (5-40)
== END 2021-09-13 23:59 | disposition home or self-care (01) ==
LOC: MFPLAB 15:52
PROVIDERS: PCP Family Medicine; Visit Provider Family Medicine
DX: Z00.00 Encounter for general adult medical examination without abnormal findings (principal); I25.10 Atherosclerotic heart disease of native coronary artery without angina pectoris; R53.81 Other malaise
CPT/HCPCS: 36415; 80061; 84443; 85025; 85652

== ENCOUNTER → 2021-09-27 | Outpatient (CLI) | payer MEDICARE, SELFPAY ==
[2021-09-27 14:33] VITALS: BP 123/63; PULSE 66; RESP 16; TEMP 36.6; O2SAT 96; BMI 26.4
[2021-09-27] MEDS: 0.9% NaCl Peripheral Flush Adult/Peds IV (14:35)
[2021-09-27] MEDS: 0.9% NaCl IVPB Med Flush (250 mL) 15 ML IV (14:49)
[2021-09-27 15:43] VITALS: BP 101/51; PULSE 70
== END | disposition home or self-care (01) ==
LOC: MEDOUTP 14:02
PROVIDERS: PCP Family Medicine; Referring Provider Internal Medicine Rheumatology; Visit Provider Internal Medicine Rheumatology
DX: M05.70 Rheumatoid arthritis with rheumatoid factor of unspecified site without organ or systems involvement (principal)
CPT/HCPCS: 96365; J7050; A4216; J1602

== ENCOUNTER 2021-10-31 08:36 | Emergency (ER) | payer MEDICARE, SELFPAY ==
[2021-10-31 08:37] VITALS: BP 136/75; PULSE 83; RESP 14; TEMP 37.1; O2SAT 97; BMI 26.3
--- NOTE | 2021-10-31 08:41 | RAD_ITS ---
STUDY: X-RAY CHEST REASON FOR EXAM: Male, 80 years old. COUGH TECHNIQUE: Single AP portable view of the chest. COMPARISON: None. FINDINGS: The lungs are clear and expanded. There is no demonstrated pleural abnormality. Normal size heart. Normal mediastinum and conrad. Normal visualized pulmonary arteries. Normal visualized aortic arch and descending thoracic aorta. Normal visualized thoracic spine. Normal visualized ribs, clavicles, and shoulders. There is no demonstrated abnormality of the visualized soft tissue structures of the upper abdomen. RAD/Chest 1 View (Portable) IMPRESSION: Normal x-ray examination of the chest. Electronically Signed: Altaf Benoit MD at 9:02 EDT ,
--- NOTE | 2021-10-31 09:09 | EDS_ITS ---
HPI HPI - URI History of Present Illness Chief Complaint: Cough Narrative Narrative: 80-year-old male with known COVID-19 infection. He was diagnosed on the first. He states he is out of quarantine today. Patient states he has had congestion, cough but no fevers or chills. No nausea or vomiting. Patient states he has been having trouble sleeping because he cannot breathe through his nose. Patient does note that he had some bleeding from his gums on the right side which he is not sure what is coming from. He notes was a blood clot there on his right upper maxillary teeth. No trauma. No dental pain. No trouble swallowing or breathing. ROS ROS ED Constitutional Constitutional ED: Denies chills or fever(s) Eyes Eyes: Denies blurry vision or diplopia ENT ENT ED: Reports rhinorrhea, sore throat and other Details: Bleeding from gums Cardiovascular Cardiovascular: Denies chest pain or palpitations Respiratory/Chest Respiratory/Chest: Reports cough; Denies dyspnea Gastrointestinal Gastrointestinal: Denies abdominal pain, nausea or vomiting Genitourinary Genitourinary ED: Denies dysuria or hematuria Musculoskeletal Musculoskeletal: Denies arthralgias or myalgias Integumentary Denies rash Neurologic Neurologic: Denies headache(s) or weakness Psychiatric Psychiatric: Denies anxiety or depression PFSH [facility] Medical History Abnormal echocardiogram Abnormal EKG Anemia Atherosclerotic heart disease of [place] coronary artery without angina pectoris Back pain Cardiology follow-up encounter Easy bruising Edema Former smoker H/o finger stitches H/o three feet of intestines removed Hemorrhoids History of atrial fibrillation History of echocardiogram History of edema History of heart attack History of irregular heartbeat History of steroid therapy History of stress test Left ventricular hypokinesis Leg pain, bilateral PAT (paroxysmal atrial tachycardia) Rheumatoid arthritis Shortness of breath on exertion SVT (supraventricular tachycardia) Syncope Wears glasses Home Medications tamsulosin 0.4 mg PO DAILY@1800 07/18/20 [History Last Taken 08/11/20 18:32] Blood pressue cuff #1 ea 09/28/20 [Rx Last Taken Unknown] folic acid 1 mg tablet 2 mg PO DAILY 09/28/20 [History Last Taken Unknown] mirtazapine 15 mg tablet 7.5 mg PO QHS tab 09/28/20 [History Last Taken Unknown] finasteride 1 mg tablet 5 mg PO DAILY 12/30/20 [History Last Taken Unknown] miscellaneous medical supply 1 ea MISCELLANEOUS DIRECTED #1 ea 12/30/20 [Rx Last Taken Unknown] prednisone 5 mg tablet 10 mg PO PRN PRN 12/30/20 [History Last Taken Unknown] multivitamin 1 tab PO DAILY 01/01/21 [History Last Taken Unknown] trazodone 150 mg PO QHS 05/09/21 [History Last Taken Unknown] rivaroxaban 20 mg tablet 20 mg PO DAILY #90 tab 06/01/21 [Rx Last Taken 07/22/21] atorvastatin 40 mg tablet 40 mg PO QHS #90 tab 10/04/21 [Rx Last Taken Unknown] amiodarone 200 mg tablet 200 mg PO DAILY #90 tab 10/08/21 [Rx Last Taken Unknown] clopidogrel 75 mg tablet 75 mg PO DAILY #90 tab 10/27/21 [Rx Last Taken Unknown] ascorbic acid (vitamin C) [Vitamin C] 1,000 mg PO DAILY 10/31/21 [History Last Taken Unknown] calcium 1,000 mg PO DAILY 10/31/21 [History Last Taken Unknown] methotrexate sodium 20 mg PO QWEEK 10/31/21 [History Last Taken Unknown] pantoprazole 40 mg PO DAILY 10/31/21 [History Last Taken Unknown] vitamin G90-ibvja acid 1 tab PO DAILY 10/31/21 [History Last Taken Unknown] Allergy/AdvReac Type Severity Reaction Status Date / Time No Known Allergies Allergy Verified 10/31/21 08:37 Family History Father CVA (cerebral vascular accident) Brother CAD (coronary artery disease) CABG X 3 Mother CVA (cerebral vascular accident) Grandfather Cancer prostate Surgical History H/O colonoscopy H/O umbilical hernia repair History of cardiac catheterization History of coronary artery stent placement (08/06/20) History of coronary artery stent placement Hx of colectomy Hx of laminectomy Hx of transurethral resection of prostate S/P appendectomy S/P cataract surgery S/P hemorrhoidectomy S/P inguinal hernia repair S/P laparoscopic cholecystectomy S/P left colectomy S/P rotator cuff repair S/P vasectomy Social History household members: none Smoking Status: Former smoker how long ago did patient quit smokin years ago alcohol intake: never substance use type: does not use diet: low salt caffeine: Yes Type: coffee Number of servings: 4 EXAM Physical Exam Const Vital Signs: 10/31/21 08:37 10/31/21 08:59 Temperature 98.8 F Temperature Source Temporal Pulse Rate 83 Respiratory Rate 14 Respiratory Effort Normal Non-Labored Respiratory Pattern Normal Blood Pressure 136/75 H Blood Pressure Mean 95 Pulse Ox 97 Oxygen Delivery Method Room Air Positive well nourished General Appearance ED: NAD HEENT HEENT Narrative: There is a small blood clot around 2 3 and 4 on the right. There are no's lesions. No active bleeding. Dental percussion nontender. Tongue normal. Buccal mucosal normal. No sublingual edema. Oropharynx is patent without stridor. normocephalic and atraumatic Eyes PERRL and EOMs intact bilaterally Neck no lymphadenopathy and supple Resp normal respiratory effort and clear to auscultation bilaterally Auscultation: Negative for rales, rhonchi or wheezes Cardio Rate: regular rate Rhythm: regular rhythm Neuro oriented x3 Sensorium / Orientation: alert Psych mental status grossly normal Skin Lesions: no lesions Rashes: no rashes MDM MDM MDM Narrative Medical decision making narrative: Patient presenting with known diagnosis of COVID-19. He does not have any dyspnea or chest pain. He does have a persistent cough and rhinorrhea. He is counseled that this may continue for short while. I did obtain a chest x-ray and on my interpretation is no acute cardiopulmonary process and the radiologist agree. As far as the patient's gum bleeding goes it does not appear to be an active bleeding problem. There is a clot there and I have recommended that he leave it alone and let it clot off because he is on a blood thinner. He does not have any dental percussion tenderness or sign of infection. Patient's COVID test came back positive again today. His influenza was negative. I feel this will likely resolve on its own however he is recommended to see a dental professional if he has issues and he is given return precautions. Impression: 1. Bleeding gums 2. COVID-19 Radiography Diagnostic Testing: Clinical Impression(s) from Imaging Studies Chest X-Ray 10/31/21 08:41 IMPRESSION: Normal x-ray examination of the chest. Electronically Signed: Altaf Benoit MD at 9:02 EDT , Discharge Plan Triage Chief Complaint: Cough ED Provider: Samm Womack Dx/Rx/DC Orders Prescriptions: No Action folic acid 1 mg tablet 2 mg PO DAILY RF: 0 mirtazapine 15 mg tablet 7.5 mg PO QHS RF: 0 (DME) Blood pressue cuff See Rx Instructions .Route .MEDSUPPLY Qty: 1 RF: 0 multivitamin [Daily Multi-Vitamin] Tablet 1 tab PO DAILY RF: 0 finasteride 1 mg tablet 5 mg PO DAILY RF: 0 prednisone 5 mg tablet 10 mg PO PRN PRN (Reason: Spasms) RF: 0 miscellaneous medical supply Misc 1 ea miscellaneous DIRECTED Qty: 1 RF: 0 tamsulosin 0.4 MG capsule 0.4 mg PO DAILY@1800 RF: 0 trazodone 100 MG tablet 150 mg PO QHS RF: 0 ascorbic acid (vitamin C) [Vitamin C] 1,000 mg Tablet 1,000 mg PO DAILY RF: 0 calcium 500 mg Tablet 1,000 mg PO DAILY RF: 0 methotrexate sodium 2.5 mg tablet 20 mg PO QWEEK RF: 0 pantoprazole 40 mg tablet,delayed release (DR/EC) 40 mg PO DAILY RF: 0 vitamin N39-avrre acid 2,500-400 mcg Tablet,Disintegrating 1 tab PO DAILY RF: 0 Xarelto 20 mg tablet 20 mg PO DAILY Qty: 90 RF: 4 atorvastatin [Lipitor] 40 mg tablet 40 mg PO QHS Qty: 90 RF: 3 amiodarone 200 mg tablet 200 mg PO DAILY Qty: 90 RF: 3 clopidogrel 75 mg tablet 75 mg PO DAILY Qty: 90 RF: 3 Primary Care Provider: Gloria Hazel
[2021-10-31 09:36] VITALS: RESP 16
== END 2021-10-31 09:37 | disposition home or self-care (01) ==
LOC: ED 09:25
PROVIDERS: Emergency Provider Student in an Organized Health Care Education/Training Program; PCP Family Medicine; Visit Provider Student in an Organized Health Care Education/Training Program
DX: K06.8 Other specified disorders of gingiva and edentulous alveolar ridge (principal); U07.1 COVID-19; I25.10 Atherosclerotic heart disease of native coronary artery without angina pectoris; I25.2 Old myocardial infarction; Z79.01 Long term (current) use of anticoagulants; Z79.02 Long term (current) use of antithrombotics/antiplatelets; Z79.899 Other long term (current) drug therapy; Z87.891 Personal history of nicotine dependence; Z95.5 Presence of coronary angioplasty implant and graft
CPT/HCPCS: 71045; 87428; 99282

== ENCOUNTER → 2021-12-08 | Outpatient (CLI) | payer MEDICARE, SELFPAY ==
[2021-12-08 14:40] VITALS: BP 121/66; PULSE 74; RESP 12; O2SAT 96; BMI 26.7
[2021-12-08] MEDS: 0.9% NaCl IVPB Med Flush (250 mL) 15 ML IV (15:00)
[2021-12-08 15:56] VITALS: BP 120/51; PULSE 66
== END | disposition home or self-care (01) ==
LOC: MEDOUTP 14:27
PROVIDERS: PCP Family Medicine; Referring Provider Internal Medicine Rheumatology; Visit Provider Internal Medicine Rheumatology
DX: M06.9 Rheumatoid arthritis, unspecified (principal)
CPT/HCPCS: 96365; J7050; J1602

== ENCOUNTER → 2021-12-09 | Outpatient (CLI) | payer MEDICARE, SELFPAY ==
[2021-12-09 18:12] LABS: Absolute Lymphocyte Count 0.89 X10^3/uL (0.83-4.51); Absolute Neutrophil Count 4.9 X10^3/uL (2.0-7.7); Basophil# 0.01 X10^3/uL; Basophil% 0.2 % (0-1); Eosinophil# 0.01 X10^3/uL; Eosinophils% 0.2 % (0-5); Hematocrit 40.1 % (40-54); Hemoglobin 12.7 g/dL (13.0-16.5); Lymphocyte # 0.89 X10^3/ul (0.83-4.51); Lymphocyte % 14.6 % (19-41); Mean Corp Hgb Conc 31.7 g/dL (32-36); Mean Corpuscular Hgb 30.6 pg (27.0-32.0); Mean Corpuscular Volume 96.6 fL (80-94); Mean Platelet Vol. 9.8 fl (6.2-12.0); Monocyte# 0.29 X10^3/uL; Monocyte% 4.8 % (0-10); NRBC Flagged by Analyzer 0 % (0-5); Neutrophil # 4.86 X10^3/uL (2.7-7.7); Neutrophil % 79.9 % (47-70); Platelet Count 213 K/mm3 (150-450); RBC Distribution Width CV 17.8 % (11.6-14.6); RBC Distribution Width SD 62.3 fl (35.1-43.9); Red Blood Count 4.15 M/mm3 (4.6-6.2); White Blood Count 6.1 K/mm3 (4.4-11.0)
[2021-12-09 18:52] LABS: ALB/GLOB Ratio 1.1 RATIO (0.9-2.4); AST(SGOT) 19 U/L (15-37); Alanine Aminotransfer ALT/SGPT 26 U/L (16-61); Albumin, Serum 3.5 g/dL (3.2-5.0); Alkaline Phosphatase 54 U/L (45-117); Anion Gap 6 (5-15); BUN 11 mg/dL (7-18); BUN/Creat Ratio 10.9 RATIO (10-20); Calcium,Total 8.9 mg/dL (8.5-10.1); Chloride 106 mmol/L (98-107); Creatinine, Serum 1.01 mg/dL (0.70-1.30); EST Glomerular Filtration Rate 76 mL/min (>60); Est Glom Filt Rate - Afr Amer 92 mL/min (>60); Globulin 3.2 g/dL (2.2-4.2); Glucose 106 mg/dL (74-106); Potassium 4.1 mmol/L (3.5-5.1); Protein, Total 6.7 g/dL (6.4-8.2); Sodium Level 141 mmol/L (136-145)
== END | disposition home or self-care (01) ==
LOC: MTLAB 16:58
PROVIDERS: PCP Family Medicine; Referring Provider Internal Medicine Rheumatology; Visit Provider Internal Medicine Rheumatology
DX: M05.79 Rheumatoid arthritis with rheumatoid factor of multiple sites without organ or systems involvement (principal); M79.645 Pain in left finger(s); M17.0 Bilateral primary osteoarthritis of knee; G47.00 Insomnia, unspecified; M21.40 Flat foot [pes planus] (acquired), unspecified foot; M47.897 Other spondylosis, lumbosacral region; I87.2 Venous insufficiency (chronic) (peripheral); N40.1 Benign prostatic hyperplasia with lower urinary tract symptoms; Z79.899 Other long term (current) drug therapy
CPT/HCPCS: 36415; 80053; 85025

== ENCOUNTER → 2022-01-24 | Outpatient (CLI) | payer MEDICARE, SELFPAY ==
--- NOTE | 2022-01-24 16:29 | RAD_ITS ---
STUDY: X-RAY - CERVICAL SPINE REASON FOR EXAM: Male, 81 years old. Cervicalgia TECHNIQUE: 5 view(s) of the cervical spine were obtained. COMPARISON: None FINDINGS: There are degenerative changes of the anterior atlantoaxial articulation. Normal odontoid process. Normal cervical lordosis. There is multi-level endplate spondylosis. There is multi-level degenerative disc disease with multilevel disc space narrowing. There is multi-level osseous foraminal stenosis. Facet joint osteoarthritis. There are atherosclerotic vascular calcifications of the carotid arteries. RAD/Cerv Spine 4 or 5 Views IMPRESSION: Multilevel spondylosis and disc space narrowing as well as no vertebral foraminal stenosis. Electronically Signed: Nicko Yoon MD at 8:16 EDT ,
== END | disposition home or self-care (01) ==
LOC: MTRAD 16:27
PROVIDERS: PCP Family Medicine; Referring Provider Family Medicine; Visit Provider Family Medicine
DX: M54.2 Cervicalgia (principal)
CPT/HCPCS: 72050

== ENCOUNTER → 2022-01-27 | Outpatient (CLI) | payer MEDICARE, SELFPAY ==
--- NOTE | 2022-01-27 10:38 | ECHOD_ITS ---
Reason For Study: MURMUR Procedure This was a 2D Doppler, Color Flow transthoracic echocardiogram. The exam was of adequate technical quality. Exam performed in department. Left Ventricle Normal LV size. Apical false tendon noted. Segmental dysfunction with preserved ejection fraction (see wall motion). The estimated ejection fraction is 50 %. Stage 2 diastolic dysfunction. Anterior Eldena : Akinetic. Inferior Eldena : Dyskinetic. Lateral Eldena : Akinetic. Septal Eldena : Dyskinetic. Right Ventricle Normal RV size. Normal systolic function. Atria The left atrium is mildly enlarged. Normal right atrium. No doppler evidence for ASD. Mitral Valve There is mild mitral annular calcification. Extension of the mitral annular calcification onto the base of the posterior mitral valve leaflet. Mild focal mitral valve calcification of the anterior leaflet. The mitral valve chordae are thickened and/or calcified. The mitral papillary muscle appears thickened and/or calcified. Mild-Moderate (1-2+) mitral valve insufficiency. Tricuspid Valve Normal tricuspid valve. Mild tricuspid valve insufficiency. Right ventricular systolic pressure estimated to be 35 mmHg. Aortic Valve Trisinus/trileaflet aortic valve. Mild diffuse aortic valve thickening. Moderate focal aortic valve calcification. Mild aortic stenosis. Trivial aortic valve insufficiency. Pulmonic Valve The pulmonic valve is not well visualized. Mild (1+) pulmonic valve insufficiency. Great Vessels Normal sized aortic root. Pericardium/Pleural Trivial pericardial effusion. There are no echocardiographic indications of cardiac tamponade. MMode/2D Measurements & Calculations LVIDd: 5.2 cm IVSd: 0.74 cm LVOT diam: 2.0 cm LVIDs: 3.7 cm LVPWd: 0.88 cm LVOT area: 3.2 cm2 RVDd: 3.3 cm FS: 29.4 % Ao root diam: 3.3 cm LAV(MOD-bp): 57.9 ml LVAd ap4: 33.7 cm2 LAV(MOD-bp) Indexed: 34.3 ml/m2 LVLd ap4: 8.6 cm LAV(MOD-sp2): 59.8 ml EDV(MOD-sp4): 108.0 ml LAV(MOD-sp4): 54.0 ml EDV(sp4-el): 112.8 ml LVAs ap4: 20.3 cm2 LVLs ap4: 7.3 cm ESV(MOD-sp4): 46.5 ml ESV(sp4-el): 48.0 ml EF(MOD-sp4): 57.0 % EF(sp4-el): 57.4 % SV(MOD-sp4): 61.5 ml SV(sp4-el): 64.8 ml LA A4 area: 19.7 cm2 LA dimension(2D): 4.0 cm RA A4 area: 17.3 cm2 Time Measurements MV dec time: 0.19 sec Doppler Measurements & Calculations MV E max pardeep: 106.0 cm/sec Lat Peak E' Pardeep: 6.2 cm/sec Med Peak E' Pardeep: 6.5 cm/sec MV A max pardeep: 88.0 cm/sec E/E' lat: 17.2 E/E' med: 16.2 MV E/A: 1.2 Ao V2 max: 202.8 cm/sec LV V1 max: 93.8 cm/sec SV(LVOT): 75.2 ml Ao max P.4 mmHg LV V1 max P.5 mmHg Ao V2 mean: 144.5 cm/sec LV V1 mean P.9 mmHg Ao mean P.3 mmHg LV V1 mean: 65.1 cm/sec Ao V2 VTI: 47.9 cm LV V1 VTI: 23.5 cm LEYLA(I,D): 1.6 cm2 LEYLA(V,D): 1.5 cm2 PA V2 max: 76.7 cm/sec TR max pardeep: 282.2 cm/sec TR max P.9 mmHg ECHO/Echo Complete Interpretation Summary Segmental dysfunction with preserved ejection fraction (see wall motion). The estimated ejection fraction is 50 %. Apical false tendon noted. The left atrium is mildly enlarged. There is mild mitral annular calcification. Extension of the mitral annular calcification onto the base of the posterior mi tral valve leaflet. Mild focal mitral valve calcification of the anterior leaflet. The mitral valve chordae are thickened and/or calcified. The mitral papillary muscle appears thickened and/or calcified. Mild-Moderate (1-2+) mitral valve insufficiency. Mild tricuspid valve insufficiency. Mild aortic stenosis. Trivial aortic valve insufficiency. Mild (1+) pulmonic valve insufficiency. Trivial pericardial effusion. There are no echocardiographic indications of cardiac tamponade. Right ventricular systolic pressure estimated to be 35 mmHg. Stage 2 diastolic dysfunction. Ordering Physician: Jorge Shields Referring Physician: ADOLFO ROMEO Performed By: Kathi Mcdonough RDCS
--- NOTE | 2022-01-27 14:40 | PFTCOMP_ITS ---
COMPLETE PULMONARY FUNCTION TEST INTERPRETATION Brief HPI: Patient is a 81-year-old male, currently under the care of Dr. Shields, who presents to [facility] for complete pulmonary function tests secondary to diagnosis of murmur. Respiratory therapist reports good effort and reproducible results. Interpretation: Forced expiration spirometry shows a mild large airways obstructive ventilatory defect with an FEV1 of 78% predicted. There is no significant bronchodilator response by strict ATS criteria. Spirograms are of poor quality and plateau slowly, indicating slowly emptying areas of the lungs. Prebronchodilator spirometry shows exhalation for only 1-1/2 seconds, likely underestimating FVC. The respiratory flow volume loop shows decreased expiratory flow rates at high lung volumes consistent with small airways obstruction. Lung volumes by body plethysmography show a normal total lung capacity at 5.36 L, 114% predicted. FRC and RV are elevated out of proportion. Lung volume measurements are consistent with hyperinflation and air-trapping. Diffusion capacity by carbon monoxide is normal at 77% predicted. The airway resistance is normal. No previous pulmonary function tests were available for review. Impression: Irreversible mild large airways obstructive ventilatory defect with relatively preserved diffusing capacity, resulting in air trapping
== END | disposition home or self-care (01) ==
PROVIDERS: PCP Family Medicine; Referring Provider Internal Medicine Cardiovascular Disease; Visit Provider Internal Medicine Cardiovascular Disease
DX: I51.89 Other ill-defined heart diseases (principal); R01.1 Cardiac murmur, unspecified; I35.0 Nonrheumatic aortic (valve) stenosis
CPT/HCPCS: 93306; 94060; 94726; 94729

== ENCOUNTER → 2022-02-07 | Outpatient (CLI) | payer MEDICARE, SELFPAY ==
[2022-02-07 14:48] VITALS: BP 134/65; PULSE 67; RESP 16; TEMP 36.3; O2SAT 98; BMI 27.3
[2022-02-07] MEDS: 0.9% NaCl Peripheral Flush Adult/Peds IV ×2 (14:58→15:08)
[2022-02-07] MEDS: 0.9% NaCl IVPB Med Flush (250 mL) 15 ML IV (15:09)
[2022-02-07 16:03] VITALS: BP 116/50; PULSE 68; RESP 16; TEMP 35.9; O2SAT 94
== END | disposition home or self-care (01) ==
LOC: MEDOUTP 14:37
PROVIDERS: PCP Family Medicine; Referring Provider Internal Medicine Rheumatology; Visit Provider Internal Medicine Rheumatology
DX: M05.70 Rheumatoid arthritis with rheumatoid factor of unspecified site without organ or systems involvement (principal)
CPT/HCPCS: 96365; J7050; A4216; J1602

== ENCOUNTER → 2022-02-09 | Outpatient (CLI) | payer MEDICARE, SELFPAY ==
[2022-02-09 17:31] LABS: Absolute Lymphocyte Count 1.02 X10^3/uL (0.83-4.51); Absolute Neutrophil Count 5.6 X10^3/uL (2.0-7.7); Basophil# 0.02 X10^3/uL; Basophil% 0.3 % (0-1); Eosinophil# 0.01 X10^3/uL; Eosinophils% 0.1 % (0-5); Hematocrit 38.8 % (40-54); Hemoglobin 12.5 g/dL (13.0-16.5); Lymphocyte # 1.02 X10^3/ul (0.83-4.51); Mean Corp Hgb Conc 32.2 g/dL (32-36); Mean Corpuscular Hgb 32.1 pg (27.0-32.0); Mean Corpuscular Volume 99.5 fL (80-94); Mean Platelet Vol. 9.7 fl (6.2-12.0); Monocyte# 0.56 X10^3/uL; Monocyte% 7.7 % (0-10); NRBC Flagged by Analyzer 0 % (0-5); Neutrophil # 5.63 X10^3/uL (2.7-7.7); Neutrophil % 77.6 % (47-70); Platelet Count 191 K/mm3 (150-450); RBC Distribution Width CV 16.8 % (11.6-14.6); RBC Distribution Width SD 61.7 fl (35.1-43.9); White Blood Count 7.3 K/mm3 (4.4-11.0)
[2022-02-09 17:50] LABS: ALB/GLOB Ratio 1.2 RATIO (0.9-2.4); AST(SGOT) 22 U/L (15-37); Alanine Aminotransfer ALT/SGPT 29 U/L (16-61); Albumin, Serum 3.5 g/dL (3.2-5.0); Alkaline Phosphatase 60 U/L (45-117); Anion Gap 8 (5-15); BUN 17 mg/dL (7-18); BUN/Creat Ratio 17.3 RATIO (10-20); Calcium,Total 8.4 mg/dL (8.5-10.1); Chloride 104 mmol/L (98-107); Creatinine, Serum 0.98 mg/dL (0.70-1.30); EST Glomerular Filtration Rate 78 mL/min (>60); Est Glom Filt Rate - Afr Amer 94 mL/min (>60); Globulin 2.9 g/dL (2.2-4.2); Glucose 129 mg/dL (74-106); Potassium 4.3 mmol/L (3.5-5.1); Protein, Total 6.4 g/dL (6.4-8.2); Sodium Level 139 mmol/L (136-145)
== END | disposition home or self-care (01) ==
LOC: MTLAB 16:44
PROVIDERS: PCP Family Medicine; Referring Provider Internal Medicine Rheumatology; Visit Provider Internal Medicine Rheumatology
DX: M17.0 Bilateral primary osteoarthritis of knee (principal); M05.79 Rheumatoid arthritis with rheumatoid factor of multiple sites without organ or systems involvement; G47.00 Insomnia, unspecified; M79.645 Pain in left finger(s); M21.40 Flat foot [pes planus] (acquired), unspecified foot; M47.897 Other spondylosis, lumbosacral region; I87.2 Venous insufficiency (chronic) (peripheral); N40.1 Benign prostatic hyperplasia with lower urinary tract symptoms; Z79.899 Other long term (current) drug therapy
CPT/HCPCS: 36415; 80053; 85025

== ENCOUNTER → 2022-04-04 | Outpatient (CLI) | payer MEDICARE, SELFPAY ==
[2022-04-04 15:34] VITALS: BP 125/68; PULSE 71; RESP 14; TEMP 36.7; O2SAT 96; BMI 27.3
[2022-04-04] MEDS: 0.9% NaCl IVPB Med Flush (250 mL) 15 ML IV (15:52)
[2022-04-04] MEDS: 0.9% NaCl Peripheral Flush Adult/Peds IV (15:55)
[2022-04-04 16:32] VITALS: BP 106/54; PULSE 73; RESP 14; TEMP 36.7; O2SAT 95
== END | disposition home or self-care (01) ==
LOC: MEDOUTP 15:05
PROVIDERS: PCP Family Medicine; Referring Provider Internal Medicine Rheumatology; Visit Provider Internal Medicine Rheumatology
DX: M05.70 Rheumatoid arthritis with rheumatoid factor of unspecified site without organ or systems involvement (principal)
CPT/HCPCS: 96365; J7050; A4216; J1602

== ENCOUNTER → 2022-04-08 | Outpatient (CLI) | payer MEDICARE, SELFPAY ==
[2022-04-08 17:43] LABS: Absolute Lymphocyte Count 0.93 X10^3/uL (0.83-4.51); Absolute Neutrophil Count 5.6 X10^3/uL (2.0-7.7); Basophil# 0.02 X10^3/uL; Basophil% 0.3 % (0-1); Eosinophil# 0.01 X10^3/uL; Eosinophils% 0.1 % (0-5); Hematocrit 38.7 % (40-54); Hemoglobin 12.6 g/dL (13.0-16.5); Lymphocyte # 0.93 X10^3/ul (0.83-4.51); Lymphocyte % 13.2 % (19-41); Mean Corp Hgb Conc 32.6 g/dL (32-36); Mean Corpuscular Hgb 33.2 pg (27.0-32.0); Mean Corpuscular Volume 101.8 fL (80-94); Mean Platelet Vol. 9.6 fl (6.2-12.0); Monocyte# 0.42 X10^3/uL; NRBC Flagged by Analyzer 0 % (0-5); Neutrophil # 5.63 X10^3/uL (2.7-7.7); Neutrophil % 80.1 % (47-70); Platelet Count 209 K/mm3 (150-450); RBC Distribution Width CV 15.6 % (11.6-14.6); RBC Distribution Width SD 58.3 fl (35.1-43.9)
[2022-04-08 18:06] LABS: ALB/GLOB Ratio 1.2 RATIO (0.9-2.4); AST(SGOT) 25 U/L (15-37); Alanine Aminotransfer ALT/SGPT 34 U/L (16-61); Albumin, Serum 3.5 g/dL (3.2-5.0); Alkaline Phosphatase 70 U/L (45-117); Anion Gap 4 (5-15); BUN 17 mg/dL (7-18); Calcium,Total 8.5 mg/dL (8.5-10.1); Chloride 103 mmol/L (98-107); EST Glomerular Filtration Rate 77 mL/min (>60); Est Glom Filt Rate - Afr Amer 93 mL/min (>60); Globulin 2.8 g/dL (2.2-4.2); Glucose 110 mg/dL (74-106); Potassium 4.6 mmol/L (3.5-5.1); Protein, Total 6.3 g/dL (6.4-8.2); Sodium Level 137 mmol/L (136-145)
== END | disposition home or self-care (01) ==
LOC: MTLAB 16:36
PROVIDERS: PCP Family Medicine; Referring Provider Internal Medicine Rheumatology; Visit Provider Internal Medicine Rheumatology
DX: M05.79 Rheumatoid arthritis with rheumatoid factor of multiple sites without organ or systems involvement (principal); M79.645 Pain in left finger(s); M17.0 Bilateral primary osteoarthritis of knee; G47.00 Insomnia, unspecified; M21.40 Flat foot [pes planus] (acquired), unspecified foot; M47.897 Other spondylosis, lumbosacral region; I87.2 Venous insufficiency (chronic) (peripheral); N40.1 Benign prostatic hyperplasia with lower urinary tract symptoms; Z79.899 Other long term (current) drug therapy
CPT/HCPCS: 36415; 80053; 85025

== ENCOUNTER → 2022-05-13 | Outpatient (CLI) | payer MEDICARE, SELFPAY ==
[2022-05-13 16:20] LABS: Absolute Lymphocyte Count 0.75 X10^3/uL (0.83-4.51); Basophil# 0.02 X10^3/uL; Basophil% 0.3 % (0-1); Eosinophil# 0.01 X10^3/uL; Eosinophils% 0.1 % (0-5); Hematocrit 38.4 % (40-54); Hemoglobin 12.8 g/dL (13.0-16.5); Lymphocyte # 0.75 X10^3/ul (0.83-4.51); Lymphocyte % 10.4 % (19-41); Mean Corp Hgb Conc 33.3 g/dL (32-36); Mean Corpuscular Hgb 33.9 pg (27.0-32.0); Mean Corpuscular Volume 101.6 fL (80-94); Mean Platelet Vol. 9.5 fl (6.2-12.0); Monocyte# 0.43 X10^3/uL; NRBC Flagged by Analyzer 0 % (0-5); Neutrophil # 5.98 X10^3/uL (2.7-7.7); Neutrophil % 82.9 % (47-70); Platelet Count 229 K/mm3 (150-450); RBC Distribution Width CV 15.2 % (11.6-14.6); RBC Distribution Width SD 55.7 fl (35.1-43.9); RET-HE 37.3 pg (30-35); Red Blood Count 3.78 M/mm3 (4.6-6.2); Reticulocyte Count 1.79 % (0.5-1.5); White Blood Count 7.2 K/mm3 (4.4-11.0)
[2022-05-13 16:49] LABS: Ferritin 57 ng/mL (26-388); Iron 31 ug/dL (65-175); Iron Binding Capacity,Total 316 ug/dL (250-450); PERCENT IRON SATURATION 9.8 % (15.0-55.0)
== END | disposition home or self-care (01) ==
LOC: LAB 14:53
PROVIDERS: PCP Family Medicine; Visit Provider Internal Medicine Gastroenterology
DX: R60.9 Edema, unspecified (principal); D64.9 Anemia, unspecified
CPT/HCPCS: 36415; 82728; 83540; 83550; 85025; 85045

== ENCOUNTER → 2022-05-31 | Outpatient (CLI) | payer MEDICARE, SELFPAY ==
[2022-05-31 15:14] VITALS: BP 132/72; PULSE 72; O2SAT 93
[2022-05-31] MEDS: 0.9% NaCl IVPB Med Flush (250 mL) 15 ML IV (15:31)
[2022-05-31] MEDS: 0.9% NaCl Peripheral Flush Adult/Peds IV (15:31)
[2022-05-31 16:23] VITALS: BP 112/58; PULSE 67; RESP 16; TEMP 36.4; O2SAT 94
== END | disposition home or self-care (01) ==
PROVIDERS: PCP Family Medicine; Referring Provider Internal Medicine Rheumatology; Visit Provider Internal Medicine Rheumatology
DX: M06.9 Rheumatoid arthritis, unspecified (principal)
CPT/HCPCS: 96365; J7050; A4216; J1602

== ENCOUNTER → 2022-06-06 | Outpatient (CLI) | payer MEDICARE, SELFPAY ==
--- NOTE | 2022-06-06 12:57 | NM_ITS ---
CLINICAL: 81-year-old male with history of abdominal bloating and early satiety. SEMI-SOLID PHASE 99m Tc SULFUR COLLOID GASTRIC EMPTYING STUDY COMPARISON: None available FINDINGS: The patient was administered 1.0 mCi of 99m Tc sulfur colloid mixed with oatmeal and consumed per os. Image acquisitions in the anterior-posterior projections were obtained for 60 minutes. There is prompt visualization of the stomach. There is no gastroesophageal reflux identified. The T ? raw data emptying was calculated to be 31.0 minutes, (Normal: 12-56 minutes). NM/Gastric Emptying Study IMPRESSION: 1. NORMAL 99m Tc sulfur colloid semi-solid phase (oatmeal) gastric emptying imaging examination. A. There is normal and preserved semi-solid phase gastric emptying compared to normal controls. (César et al, J Nucl Med Tech 38: 186, 2010). Electronically Signed: Altaf Mejia, at 8:40 EST ,
== END | disposition home or self-care (01) ==
LOC: NM 12:51
PROVIDERS: PCP Family Medicine; Referring Provider Nurse Practitioner Adult Health; Visit Provider Nurse Practitioner Adult Health
DX: R68.81 Early satiety (principal)
CPT/HCPCS: 78264; A9541

== ENCOUNTER → 2022-06-14 | Outpatient (CLI) | payer MEDICARE, SELFPAY ==
[2022-06-14 11:37] LABS: Amphetamine Urine VISTA NEGATIVE (<1000 ng/mL); Barbiturate Urine VISTA NEGATIVE (< 200 ng/mL); Benzodiazepine Urine VISTA NEGATIVE (< 200 ng/mL); Cocaine Urine VISTA NEGATIVE (< 300 ng/mL); Ecstacy Urine VISTA POSITIVE (< 500 ng/mL); Methadone Urine VISTA NEGATIVE (< 300 ng/mL); PCP Urine VISTA NEGATIVE (< 25 ng/mL); THC Urine VISTA NEGATIVE (< 50 ng/mL); Vista UDS pH Range 7
== END | disposition home or self-care (01) ==
PROVIDERS: PCP Family Medicine; Referring Provider Anesthesiology Pain Medicine; Visit Provider Anesthesiology Pain Medicine
DX: F11.20 Opioid dependence, uncomplicated (principal)
CPT/HCPCS: 80307

== ENCOUNTER → 2022-07-01 | Outpatient (CLI) | payer MEDICARE, SELFPAY ==
--- NOTE | 2022-07-01 14:25 | RAD_ITS ---
EXAM: XR THORACIC SPINE, 3 VIEWS CLINICAL INDICATION: BACK PAIN TECHNIQUE: Frontal, lateral and swimmer''s views of the thoracic spine. This report was created using [employer] report generation technology. COMPARISON: None. FINDINGS: VERTEBRAE: There are chronic appearing compression deformities in the upper thoracic spine. DISC SPACES: There is multilevel degenerative change with disc space narrowing. There is minimal curvature of the lower thoracic spine. RAD/Thoracic Spine 3 Views IMPRESSION: Chronic appearing compression deformities in the upper to midthoracic spine. There are no acute osseous abnormalities. There is multilevel degenerative change with disc space narrowing. Electronically Signed: Yosef Hackett MD at 18:30 EST ,
--- NOTE | 2022-07-01 14:25 | RAD_ITS ---
EXAM: XR CHEST, 2 VIEWS CLINICAL INDICATION: BACK PAIN TECHNIQUE: Frontal and lateral views of the chest. This report was created using [employer] report generation technology. COMPARISON: 10/31/2021 FINDINGS: LUNGS AND PLEURAL SPACES: There is blunting left costophrenic angle which may represent trace effusion or pleural scarring. There is minimal scarring in the lung bases. No pneumothorax. HEART: Unremarkable. Cardiac silhouette not enlarged. MEDIASTINUM: Central airways and mediastinal contour are unremarkable. BONES/JOINTS: Unremarkable. SOFT TISSUES: Unremarkable. RAD/Chest PA and Lateral IMPRESSION: Minimal bibasilar scarring. There is no acute pulmonary abnormality. There has been no significant change from the reference exam. Electronically Signed: Yosef Hackett MD at 18:25 EST ,
[2022-07-01 17:44] LABS: Absolute Lymphocyte Count 1.07 X10^3/uL (0.83-4.51); Absolute Neutrophil Count 3.4 X10^3/uL (2.0-7.7); Basophil# 0.04 X10^3/uL; Basophil% 0.8 % (0-1); Eosinophil# 0.13 X10^3/uL; Eosinophils% 2.4 % (0-5); Hematocrit 36.3 % (40-54); Hemoglobin 11.2 g/dL (13.0-16.5); Lymphocyte # 1.07 X10^3/ul (0.83-4.51); Lymphocyte % 20.1 % (19-41); Mean Corp Hgb Conc 30.9 g/dL (32-36); Mean Corpuscular Hgb 31.4 pg (27.0-32.0); Mean Corpuscular Volume 101.7 fL (80-94); Mean Platelet Vol. 9.6 fl (6.2-12.0); Monocyte# 0.66 X10^3/uL; Monocyte% 12.4 % (0-10); NRBC Flagged by Analyzer 0 % (0-5); Neutrophil # 3.42 X10^3/uL (2.7-7.7); Neutrophil % 64.1 % (47-70); Platelet Count 249 K/mm3 (150-450); RBC Distribution Width CV 14.6 % (11.6-14.6); RBC Distribution Width SD 54.1 fl (35.1-43.9); Red Blood Count 3.57 M/mm3 (4.6-6.2); White Blood Count 5.3 K/mm3 (4.4-11.0)
[2022-07-01 18:11] LABS: ALB/GLOB Ratio 0.9 RATIO (0.9-2.4); AST(SGOT) 20 U/L (15-37); Alanine Aminotransfer ALT/SGPT 26 U/L (16-61); Albumin, Serum 3.1 g/dL (3.2-5.0); Alkaline Phosphatase 72 U/L (45-117); Anion Gap 7 (5-15); BUN 12 mg/dL (7-18); Calcium,Total 8.6 mg/dL (8.5-10.1); Chloride 104 mmol/L (98-107); EST Glomerular Filtration Rate 99 mL/min (>60); Est Glom Filt Rate - Afr Amer 120 mL/min (>60); Globulin 3.4 g/dL (2.2-4.2); Glucose 88 mg/dL (74-106); Potassium 3.7 mmol/L (3.5-5.1); Protein, Total 6.5 g/dL (6.4-8.2); Sodium Level 141 mmol/L (136-145)
== END | disposition home or self-care (01) ==
LOC: MTLAB 14:16
PROVIDERS: PCP Family Medicine; Referring Provider Family Medicine; Visit Provider Family Medicine
DX: M54.6 Pain in thoracic spine (principal)
CPT/HCPCS: 36415; 71046; 72072; 80053; 85025; 86140

== ENCOUNTER → 2022-07-20 | Outpatient (CLI) | payer MEDICARE, SELFPAY ==
--- NOTE | 2022-07-20 16:03 | CT_ITS ---
STUDY: CT THORACIC SPINE WITH CONTRAST REASON FOR EXAM: Male, 81 years old. Back pain. Question discitis. RADIATION DOSAGE (If Supplied By Facility): CTDIvol = ( 18.42 ) mGy, DLP = ( 705.53 ) mGycm TECHNIQUE: The patient was scanned in a multi-detector CT scanner. High resolution transaxial imaging was performed pre-and post contrast administration. The examination was performed with IV 100mL [id number]-300. Images were obtained from C7 to L1. Sagittal and coronal images were reconstructed. Individualized dose optimization techniques were used for this CT. COMPARISON: Thoracic spine, July 01, 2022 FINDINGS: There is multilevel degenerative disc disease and cervical spondylosis. Normal kyphosis of the thoracic spine. 2 mild dextroscoliosis with convexity to 6 there is anterior wedging of T6 and T7 as noted on the plain films. Question acute fracture of the inferior endplate of C6. No other fracture lines are noted. There is multilevel endplate spondylosis. There is multilevel degenerative disc disease with loss of the disc space heights. No evidence of spinal stenosis or neural foraminal narrowing. The soft tissue structures are unremarkable. CT/Spine Thoracic WITH Contrast IMPRESSION: 1. Anterior wedging of C6 and C7. This is age-indeterminate but appears chronic. There is linear fracture lines along the inferior endplate of C6 suggesting acute on chronic fracture. 2. Diffuse degenerative changes of the thoracic spine Electronically Signed: Sridhar Hart DO at 16:47 EST ,
[2022-07-20 17:51] LABS: Absolute Lymphocyte Count 0.67 X10^3/uL (0.83-4.51); Absolute Neutrophil Count 7.4 X10^3/uL (2.0-7.7); Basophil# 0.02 X10^3/uL; Basophil% 0.2 % (0-1); Eosinophil# 0.01 X10^3/uL; Eosinophils% 0.1 % (0-5); Hematocrit 37.3 % (40-54); Hemoglobin 11.6 g/dL (13.0-16.5); Lymphocyte # 0.67 X10^3/ul (0.83-4.51); Mean Corp Hgb Conc 31.1 g/dL (32-36); Mean Corpuscular Hgb 30.9 pg (27.0-32.0); Mean Corpuscular Volume 99.2 fL (80-94); Mean Platelet Vol. 9.8 fl (6.2-12.0); Monocyte# 0.31 X10^3/uL; Monocyte% 3.7 % (0-10); NRBC Flagged by Analyzer 0 % (0-5); Neutrophil # 7.37 X10^3/uL (2.7-7.7); Neutrophil % 87.6 % (47-70); Platelet Count 240 K/mm3 (150-450); RBC Distribution Width CV 15.1 % (11.6-14.6); RBC Distribution Width SD 53.8 fl (35.1-43.9); Red Blood Count 3.76 M/mm3 (4.6-6.2); White Blood Count 8.4 K/mm3 (4.4-11.0)
[2022-07-20 18:39] LABS: ALB/GLOB Ratio 1.1 RATIO (0.9-2.4); AST(SGOT) 28 U/L (15-37); Alanine Aminotransfer ALT/SGPT 33 U/L (16-61); Albumin, Serum 3.4 g/dL (3.2-5.0); Alkaline Phosphatase 84 U/L (45-117); Anion Gap 3 (5-15); BUN 18 mg/dL (7-18); BUN/Creat Ratio 16.7 RATIO (10-20); Calcium,Total 8.4 mg/dL (8.5-10.1); Chloride 106 mmol/L (98-107); Creatinine, Serum 1.08 mg/dL (0.70-1.30); EST Glomerular Filtration Rate 70 mL/min (>60); Est Glom Filt Rate - Afr Amer 85 mL/min (>60); Globulin 3.1 g/dL (2.2-4.2); Glucose 127 mg/dL (74-106); Potassium 4.3 mmol/L (3.5-5.1); Protein, Total 6.5 g/dL (6.4-8.2); Sodium Level 139 mmol/L (136-145)
== END | disposition home or self-care (01) ==
LOC: CT 15:59
PROVIDERS: Internal Medicine Rheumatology; PCP Family Medicine; Referring Provider Family Medicine; Visit Provider Family Medicine
DX: R79.82 Elevated C-reactive protein (CRP) (principal); M05.79 Rheumatoid arthritis with rheumatoid factor of multiple sites without organ or systems involvement; Z79.899 Other long term (current) drug therapy; M17.0 Bilateral primary osteoarthritis of knee; G47.00 Insomnia, unspecified; M21.40 Flat foot [pes planus] (acquired), unspecified foot; M47.897 Other spondylosis, lumbosacral region; I87.2 Venous insufficiency (chronic) (peripheral); N40.1 Benign prostatic hyperplasia with lower urinary tract symptoms; M54.9 Dorsalgia, unspecified; M46.40 Discitis, unspecified, site unspecified
CPT/HCPCS: 36415; 72129; 80053; 85025; Q9967

== ENCOUNTER → 2022-07-25 | Outpatient (CLI) | payer MEDICARE, SELFPAY ==
[2022-07-25 16:50] LABS: Absolute Lymphocyte Count 1.36 X10^3/uL (0.83-4.51); Absolute Neutrophil Count 4.2 X10^3/uL (2.0-7.7); Basophil# 0.02 X10^3/uL; Basophil% 0.3 % (0-1); Eosinophil# 0.13 X10^3/uL; Hematocrit 37.6 % (40-54); Hemoglobin 11.7 g/dL (13.0-16.5); Lymphocyte # 1.36 X10^3/ul (0.83-4.51); Mean Corp Hgb Conc 31.1 g/dL (32-36); Mean Corpuscular Volume 99.5 fL (80-94); Mean Platelet Vol. 9.1 fl (6.2-12.0); Monocyte# 0.76 X10^3/uL; Monocyte% 11.7 % (0-10); NRBC Flagged by Analyzer 0 % (0-5); Neutrophil % 64.8 % (47-70); Platelet Count 201 K/mm3 (150-450); RBC Distribution Width CV 15.4 % (11.6-14.6); RBC Distribution Width SD 55.6 fl (35.1-43.9); RET-HE 29.7 pg (30-35); Red Blood Count 3.78 M/mm3 (4.6-6.2); Reticulocyte Count 2.37 % (0.5-1.5); White Blood Count 6.5 K/mm3 (4.4-11.0)
[2022-07-25 18:04] LABS: Ferritin 89 ng/mL (26-388); Iron 51 ug/dL (65-175); Iron Binding Capacity,Total 292 ug/dL (250-450); PERCENT IRON SATURATION 17.5 % (15.0-55.0)
== END | disposition home or self-care (01) ==
LOC: LAB 16:20
PROVIDERS: PCP Family Medicine; Visit Provider Nurse Practitioner Adult Health
DX: D64.9 Anemia, unspecified (principal); I47.1 Supraventricular tachycardia; R60.9 Edema, unspecified
CPT/HCPCS: 36415; 82728; 83540; 83550; 85025; 85045

== ENCOUNTER → 2022-07-27 | Outpatient (CLI) | payer MEDICARE, SELFPAY ==
[2022-07-27 15:38] VITALS: BP 122/71; PULSE 86; RESP 16; TEMP 36.6; O2SAT 94; BMI 29.2
[2022-07-27] MEDS: 0.9% NaCl Peripheral Flush Adult/Peds IV (15:47)
[2022-07-27] MEDS: 0.9% NaCl IVPB Med Flush (250 mL) 15 ML IV (15:47)
[2022-07-27 16:45] VITALS: BP 124/63; PULSE 69; RESP 16; TEMP 36.6; O2SAT 93
== END | disposition home or self-care (01) ==
LOC: MEDOUTP 15:33
PROVIDERS: PCP Family Medicine; Referring Provider Internal Medicine Rheumatology; Visit Provider Internal Medicine Rheumatology
DX: M05.70 Rheumatoid arthritis with rheumatoid factor of unspecified site without organ or systems involvement (principal)
CPT/HCPCS: 96365; J7050; A4216; J1602

== ENCOUNTER → 2022-09-16 | Outpatient (CLI) | payer MEDICARE, SELFPAY ==
--- NOTE | 2022-09-16 16:33 | RAD_ITS ---
STUDY: X-RAY CHEST REASON FOR EXAM: Male, 81 years old. Dyspnea. TECHNIQUE: PA and lateral views of the chest. COMPARISON: July 01, 2022. FINDINGS: Lungs are well expanded. There is chronic interstitial changes and scarring without new mass or infiltrate. There is no demonstrated pleural abnormality. Mild cardiomegaly. Normal mediastinum and conrad. Normal visualized pulmonary arteries. There is atherosclerotic calcification of the aortic arch with tortuosity. There are diffuse degenerative changes of the visualized thoracic spine. There is compression deformity of what appears to be T7 which demonstrates additional collapse since previous exam. Normal visualized ribs, clavicles, and shoulders. There is no demonstrated abnormality of the visualized soft tissue structures of the upper abdomen. RAD/Chest PA and Lateral IMPRESSION: Worsening compression deformity of T7 without other major interval change. Electronically Signed: Sridhar Hart DO at 16:26 EDT ,
[2022-09-16 18:56] LABS: Thyroid Stim Hormone (TSH) 1.36 uIU/mL (0.358-3.74)
== END | disposition home or self-care (01) ==
LOC: MTLAB 16:32
PROVIDERS: PCP Family Medicine; Referring Provider Family Medicine; Visit Provider Family Medicine
DX: R06.09 Other forms of dyspnea (principal); R60.0 Localized edema
CPT/HCPCS: 36415; 71046; 84443

== ENCOUNTER 2022-09-20 15:21 | Outpatient (CLI) | payer MEDICARE, SELFPAY ==
[2022-09-20 15:28] VITALS: BP 103/55; PULSE 77; RESP 16; O2SAT 92; BMI 29.2
[2022-09-20] MEDS: 0.9% NaCl Peripheral Flush Adult/Peds IV (15:41)
[2022-09-20] MEDS: 0.9% NaCl IVPB Med Flush (250 mL) 15 ML IV (15:42)
[2022-09-20 16:38] VITALS: BP 100/51; PULSE 71; RESP 16
== END 2022-09-20 15:22 | disposition home or self-care (01) ==
LOC: MEDOUTP 15:22
PROVIDERS: PCP Family Medicine; Referring Provider Internal Medicine Rheumatology; Visit Provider Internal Medicine Rheumatology
DX: M06.9 Rheumatoid arthritis, unspecified (principal)
CPT/HCPCS: 96365; J7050; A4216; J1602

== ENCOUNTER 2022-09-23 07:10 | Inpatient (IN) | payer MEDICARE, SELFPAY ==
[2022-09-23] VITALS (10 sets, daily range): BP systolic 116–157; BP diastolic 62–82; PULSE 71–79; RESP 12–18; TEMP 36.6–37.1; O2SAT 87–100; BMI 27.1; BMI 28.4
--- NOTE | 2022-09-23 07:50 | ED.VIS.LOWEX ---
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 He admits to sitting approximately 6 hours a day and stands significantly while at work. He states he does not always sleep in his bed. He does sleep in a lazy boy. He does not endorse orthopnea or PND. He does have history of heart problems and sees a strategic sourcing specialist but denies history of congestive heart failure. Patient denies fever, chills night sweats. Patient denies weight loss or weight gain. Patient denies headache, visual, ocular auditory symptoms. Patient denies GI symptoms. He denies change in color, consistency or caliber of his stool. Patient denies chest discomfort of any type. Patient denies dyspnea on exertion. Patient denies orthopnea or PND. Patient states he has had difficulty getting around. Apparently he was sent home from work because of the amount of drainage from the open area. Tetanus Immunization: Unknown Prior similar symptoms: Yes Recent Illness/Hospitalization: No [facility] Medical History Abnormal echocardiogram Abnormal EKG Anemia Appetite loss Atherosclerotic heart disease of [place] coronary artery without angina pectoris Atrial fibrillation Atrial fibrillation with rapid ventricular response Back pain Cardiology follow-up encounter Coronary artery disease Debility Easy bruising Edema Fever Fever Former smoker H/o finger stitches H/o three feet of intestines removed Hemorrhoids History of atrial fibrillation History of echocardiogram History of edema History of heart attack History of irregular heartbeat History of steroid therapy History of stress test Inflammatory arthritis Insomnia Left groin pain Left ventricular hypokinesis Left wrist pain Leg pain, bilateral Lumbar spinal stenosis Muscle spasm Osteoarthritis of left knee Paroxysmal atrial fibrillation PAT (paroxysmal atrial tachycardia) Rheumatoid arthritis Rheumatoid arthritis Right groin pain Right hip joint effusion Scrotal pain Shortness of breath on exertion SVT (supraventricular tachycardia) Syncope Wears glasses Home Medications tamsulosin 0.4 mg capsule 0.4 mg PO DAILY@1800 Retention 07/18/20 [History Last Taken 08/11/20 18:32] Blood pressue cuff #1 ea 09/28/20 [Rx Last Taken Unknown] folic acid 1 mg tablet 2 mg PO DAILY 09/28/20 [History Last Taken Unknown] finasteride 1 mg tablet 5 mg PO DAILY 12/30/20 [History Last Taken Unknown] miscellaneous medical supply 1 ea miscellaneous DIRECTED #1 ea 12/30/20 [Rx Last Taken Unknown] prednisone 5 mg tablet 10 mg PO PRN PRN Spasms 12/30/20 [History Last Taken Unknown] multivitamin (Daily Multi-Vitamin tablet) 1 tab PO DAILY 01/01/21 [History Last Taken Unknown] trazodone 100 mg tablet 150 mg PO QHS 05/09/21 [History Last Taken Unknown] atorvastatin 40 mg tablet (Lipitor) 40 mg PO QHS Cholesterol #90 tabs 10/04/21 [Rx Last Taken Unknown] amiodarone 200 mg tablet 200 mg PO DAILY heart rate #90 tabs 10/08/21 [Rx Last Taken Unknown] aspirin 81 mg tablet,delayed release 81 mg PO DAILY #1 TAB 01/10/22 [Rx Last Taken Unknown] mirtazapine 15 mg tablet 15 mg PO QHS 01/10/22 [History Last Taken Unknown] vitamin B12 2,500 mcg-folic acid 400 mcg disintegrating tablet 1 tab PO DAILY 01/10/22 [History Last Taken Unknown] cyclobenzaprine 10 mg tablet 10 mg PO DAILY PRN muscle spasms 02/07/22 [History Last Taken Unknown] tramadol 50 mg tablet 50 mg PO TID PRN Pain 02/07/22 [History Last Taken Unknown] gabapentin 100 mg tablet 100 mg PO TID 05/31/22 [History Last Taken Unknown] golimumab 12.5 mg/mL intravenous solution (Simponi ARIA) mg IV 05/31/22 [History Last Taken Unknown] rivaroxaban 20 mg tablet (Xarelto) 20 mg PO DAILY #90 tabs 06/13/22 [Rx Last Taken Unknown] buprenorphine 10 mcg/hour weekly transdermal patch 1 patch transdermal QWEEK 09/20/22 [History Last Taken Unknown] furosemide 40 mg tablet (Lasix) 40 mg PO DAILY 09/20/22 [History Last Taken Unknown] polysaccharide iron complex 150 mg iron capsule (Ferrex) 150 mg PO DAILY 90 days #90 caps 09/21/22 [Rx Last Taken Unknown] Allergy/AdvReac Type Severity Reaction Status Date / Time No Known Allergies Allergy Verified 09/23/22 07:10 Family History Father CVA (cerebral vascular accident) Brother CAD (coronary artery disease) CABG X 3 Mother CVA (cerebral vascular accident) Grandfather Cancer prostate Surgical History H/O colonoscopy H/O umbilical hernia repair History of cardiac catheterization History of coronary artery stent placement (08/06/20) History of coronary artery stent placement History of lumbar surgery Hx of colectomy Hx of laminectomy Hx of transurethral resection of prostate S/P appendectomy S/P cataract surgery S/P hemorrhoidectomy S/P inguinal hernia repair S/P laparoscopic cholecystectomy S/P left colectomy S/P rotator cuff repair S/P vasectomy Social History household members: none Smoking Status: Former smoker how long ago did patient quit smokin years ago alcohol intake: never substance use type: does not use diet: low salt caffeine: Yes Type: coffee Number of servings: 4 ROS ROS ED Constitutional Constitutional ED: Denies chills, fever(s), subjective, sweats or weight loss Eyes Eyes: Denies blurry vision, change in vision or diplopia ENT ENT ED: Denies ear pain, rhinorrhea or sore throat Cardiovascular Cardiovascular: Denies chest pain, orthopnea, palpitations, paroxysmal nocturnal dyspnea or racing heartbeat Respiratory/Chest Respiratory/Chest: Denies cough, dyspnea, dyspnea on exertion, orthopnea or paroxysmal nocturnal dyspnea Gastrointestinal Gastrointestinal: Denies abdominal pain, diarrhea, nausea or vomiting Genitourinary Genitourinary ED: Denies dysuria, hematuria or urinary frequency Musculoskeletal Musculoskeletal: Reports back pain and other Details: Patient's back pain is chronic. He has had prior back surgery. Integumentary Reports other Details: Patient has a superficial wound mid lateral right leg that has serous drainage. Neurologic Neurologic: Denies headache(s), paresthesias or weakness Hematologic/Lymphatic Hematologic/Lymphatic: Denies easy bleeding or easy bruising EXAM Physical Exam Const Vital Signs: 09/23/22 07:11 09/23/22 07:11 09/23/22 08:11 Temperature 98.4 F Temperature Source Temporal Pulse Rate 79 Respiratory Rate 18 16 Respiratory Effort Normal Non-Labored Respiratory Pattern Normal Blood Pressure 117/68 Blood Pressure Mean 84 Pulse Ox 93 88 Oxygen Delivery Method Room Air Room Air 09/23/22 08:13 Temperature Temperature Source Pulse Rate Respiratory Rate 16 Respiratory Effort Respiratory Pattern Blood Pressure Blood Pressure Mean Pulse Ox 99 Oxygen Delivery Method Nasal Cannula Positive well nourished, well developed and unkempt General Appearance ED: unkempt, well developed and NAD HEENT Reports moist mucous membranes normocephalic and atraumatic Eyes PERRL Eyes Narrative: Extraocular muscles are intact. Conjunctive a looks pale. Neck full ROM and supple Neck Narrative: There is no OG VD. Chest Wall inspection of chest normal and palpation of chest normal Resp normal respiratory effort, no retractions and No clear to auscultation bilaterally Auscultation: rales bilateral base Cardio regular rate, regular rhythm, S1 normal heart sound, S2 normal heart sound and no murmurs GI non-tender, non-distended and no masses GI Narrative: There is no palpable pulsatile mass. There is no abdominal bruit. There is no hepatosplenomegaly. Palpation: soft Back/Spine no CVA tenderness Lumbar Spine / Lower Back: lumbar spinal tenderness Extremity Negative for normal to inspection Extremity Narrative: Patient has paler appearing right foot than left. Unable to appreciate pulses on either side because of the amount of lymphedema. Capillary refill is normal on the left. There is a slight delay on the right. There is no evidence of infection right or left leg or feet. Patient has a small open area medial proximal right thigh that has some discoloration. There is no warmth, induration, lymphangitis or lymphadenopathy in the inguinal region. Neuro oriented x3, CN's II-XII intact bilaterally and moves all extremities Sensorium / Orientation: alert Psych Psych Narrative: Patient has a flat affect and depressed mood. Appearance: unkempt Skin Skin Narrative: Documented under the extremity portion of the chart MDM MDM MDM Narrative Medical decision making narrative: 1. Contacted wound center. They recommended Kate arce. Initially thought was to have patient urgently seen at the wound center. When I went in to inform them that case management would not be available until 10 AM his pulse ox with a good waveform was reading 86 to 88% on room air. In light of this will obtain work-up to determine the cause of his hypoxia. Chest x-ray was obtained to assess for pneumonia and congestive heart failure. EKG to rule out cardiac ischemia. Troponin and BNP to assess for cardiac ischemia and heart failure. He does appear anemic and has history of anemia will obtain CBC to assess H&H as well as platelet count. BMP was obtained to assess renal function. Lab Data Attestation: I reviewed the patient's lab results. Lab results narrative: Patient is anemic with a hemoglobin of 8.1 and 27.0. MCV is normal. Differential is no. Comp metabolic panel is unremarkable. Troponin is elevated 138. BNP is elevated 243. Albumin is slightly low at 2.9. Labs: Laboratory Results - last 24 hr 09/23/22 09/23/22 09/23/22 08:08 08:08 08:08 WBC 5.8 RBC 2.93 L Hgb 8.1 L Hct 27.0 L MCV 92.2 MCH 27.6 MCHC 30.0 L RDW Std Deviation 55.1 H RDW Coeff of Jaciel 16.6 H Plt Count 316 MPV 9.0 Immature Gran % (Auto) 0.300 Neut % (Auto) 69.7 Lymph % (Auto) 15.8 L [place] % (Auto) 11.1 H Eos % (Auto) 2.2 Baso % (Auto) 0.9 Absolute Neuts (auto) 4.1 Absolute Lymphs (auto) 0.92 Nucleated RBC % 0 Sodium 138 Potassium 3.6 Chloride 105 Carbon Dioxide 31.0 Anion Gap 2 L BUN 15 Creatinine 0.94 Estim Creat Clear Calc 53.36 Est GFR (MDRD) Af Amer 99 Est GFR (MDRD) Non-Af 82 BUN/Creatinine Ratio 15.9 Glucose 104 Calcium 8.2 L Total Bilirubin 0.90 AST 29 ALT 28 Alkaline Phosphatase 89 Troponin I High Sens 138 H* B-Natriuretic Peptide 243.4 H Total Protein 5.9 L Albumin 2.9 L Globulin 3.0 Albumin/Globulin Ratio 1.0 Radiography Chest X-Ray - ED: Read by ED Physician (2 view chest x-ray reveals chronic changes with bilateral scarring worse on right than left. There is elevated hemidiaphragm. Cardiac size within normal limits. [place] structures unremarkable. This was independent reviewed interpreted by me.) Diagnostic Testing: Clinical Impression(s) from Imaging Studies Chest X-Ray 09/23/22 07:53 IMPRESSION: Stable examination. Findings suggestive of mild scarring bilaterally. Electronically Signed: Nicko Yoon MD at 8:47 EDT , Management Discussion w/another healthcare provider: Other (Wound center and documented under the MDM portion of the chart) Procedures Other Procedures Procedure(s): Application of Unna boot right lower extremity. Total time 5 minutes Discharge Plan Triage Chief Complaint: Edema ED Provider: Apolinar Lozano Dx/Rx/DC Orders Clinical Impression: Hypoxia, Elevated troponin, Elevated brain natriuretic peptide (BNP) level, Lymphedema of both lower extremities, Atherosclerotic heart disease of [place] coronary artery without angina pectoris, GERD (gastroesophageal reflux disease), Aortic valve stenosis, acquired Prescriptions: No Action folic acid 1 mg tablet 2 mg PO DAILY (DME) Blood pressue cuff See Rx Instructions .Route .MEDSUPPLY Qty: 1 0RF Rx Instructions: As directed mirtazapine 15 mg tablet 15 mg PO QHS multivitamin [Daily Multi-Vitamin] Tablet 1 tab PO DAILY finasteride 1 mg tablet 5 mg PO DAILY prednisone 5 mg tablet 10 mg PO PRN PRN (Reason: Spasms) miscellaneous medical supply Mis 1 ea miscellaneous DIRECTED Qty: 1 0RF Rx Instructions: handicap placard, for life. aspirin 81 mg tablet,delayed release (DR/EC) 81 mg PO DAILY Qty: 1 0RF polysaccharide iron complex [Ferrex 150] 150 mg iron capsule 150 mg PO DAILY 90 Days Qty: 90 0RF tamsulosin 0.4 MG capsule 0.4 mg PO DAILY@1800 trazodone 100 MG tablet 150 mg PO QHS vitamin [id number] acid 2,500-400 mcg tablet,disintegrating 1 tab PO DAILY cyclobenzaprine 10 mg Tablet 10 mg PO DAILY PRN (Reason: muscle spasms) tramadol 50 mg Tablet 50 mg PO TID PRN (Reason: Pain) gabapentin 100 mg Tablet 100 mg PO TID Simponi ARIA 12.5 mg/mL Solution IV furosemide [Lasix] 40 mg Tablet 40 mg PO DAILY buprenorphine 10 mcg/hour Patch Weekly 1 patch TRANSDERMAL QWEEK atorvastatin [Lipitor] 40 mg tablet 40 mg PO QHS Qty: 90 3RF amiodarone 200 mg tablet 200 mg PO DAILY Qty: 90 3RF Xarelto 20 mg tablet 20 mg PO DAILY Qty: 90 4RF Rx Instructions: must administer with evening meal Primary Care Provider: Gloria Hazel Referrals: Gloria Hazel MD [Primary Care Provider] - Disposition Disposition: Acute Care Hospital [facility]
--- NOTE | 2022-09-23 07:53 | RAD_ITS ---
STUDY: X-RAY CHEST REASON FOR EXAM: Male, 81 years old. Hypoxia, bibasilar rales, lymphedema TECHNIQUE: PA and lateral views of the chest. COMPARISON: Comparison is made with prior study dated September 16, 2022. FINDINGS: EKG electrodes are seen. Hyperinflation. Stable blunting of both costophrenic angles. Stable mild increased markings in both lungs slightly worse on the left side in keeping with a chronic scarring. There has been essentially no change. There is borderline cardiomegaly. Normal mediastinum and conrad. Normal visualized pulmonary arteries. There is atherosclerotic calcification of the aortic arch with tortuosity. There is demineralization of the osseous structures. Stable loss of height of the T7 vertebrae. Normal visualized ribs, clavicles, and shoulders. There is no demonstrated abnormality of the visualized soft tissue structures of the upper abdomen. RAD/Chest PA and Lateral IMPRESSION: Stable examination. Findings suggestive of mild scarring bilaterally. Electronically Signed: Nicko Yoon MD at 8:47 EDT ,
--- NOTE | 2022-09-23 07:53 | EKG12_ITS ---
Test Reason : Blood Pressure : / mmHG Vent. Rate : 063 BPM Atrial Rate : 063 BPM P-R Int : 192 ms QRS Dur : 092 ms QT Int : 462 ms P-R-T Axes : 024 -38 070 degrees QTc Int : 472 ms Normal sinus rhythm Left axis deviation Incomplete right bundle branch block Anterior infarct , age undetermined Abnormal ECG Confirmed by FELIX PERALES, SREEKANTH ([id number]), film or videotape editor DEMARCUS CAMARENA ([id number]) on 09/26/2022 11:27:34 AM Referred By: Confirmed By:SHAQUILLE WASHINGTON MD
[2022-09-23 08:22] LABS: Absolute Lymphocyte Count 0.92 X10^3/uL (0.83-4.51); Absolute Neutrophil Count 4.1 X10^3/uL (2.0-7.7); Basophil# 0.05 X10^3/uL; Basophil% 0.9 % (0-1); Eosinophil# 0.13 X10^3/uL; Eosinophils% 2.2 % (0-5); Hemoglobin 8.1 g/dL (13.0-16.5); Lymphocyte # 0.92 X10^3/ul (0.83-4.51); Lymphocyte % 15.8 % (19-41); Mean Corpuscular Hgb 27.6 pg (27.0-32.0); Mean Corpuscular Volume 92.2 fL (80-94); Monocyte# 0.65 X10^3/uL; Monocyte% 11.1 % (0-10); NRBC Flagged by Analyzer 0 % (0-5); Neutrophil # 4.06 X10^3/uL (2.7-7.7); Neutrophil % 69.7 % (47-70); Platelet Count 316 K/mm3 (150-450); RBC Distribution Width CV 16.6 % (11.6-14.6); RBC Distribution Width SD 55.1 fl (35.1-43.9); Red Blood Count 2.93 M/mm3 (4.6-6.2); White Blood Count 5.8 K/mm3 (4.4-11.0)
[2022-09-23 08:38] LABS: BNP,B-Type NATRIURETIC PEPTIDE 243.4 pg/mL (0-100)
[2022-09-23 08:46] LABS: AST(SGOT) 29 U/L (15-37); Alanine Aminotransfer ALT/SGPT 28 U/L (16-61); Albumin, Serum 2.9 g/dL (3.2-5.0); Alkaline Phosphatase 89 U/L (45-117); Anion Gap 2 (5-15); BUN 15 mg/dL (7-18); BUN/Creat Ratio 15.9 RATIO (10-20); Calcium,Total 8.2 mg/dL (8.5-10.1); Chloride 105 mmol/L (98-107); Creatinine, Serum 0.94 mg/dL (0.70-1.30); EST Glomerular Filtration Rate 82 mL/min (>60); Est Glom Filt Rate - Afr Amer 99 mL/min (>60); Estimated Creatinine Clearance 53.36 ml/min; Glucose 104 mg/dL (74-106); Potassium 3.6 mmol/L (3.5-5.1); Protein, Total 5.9 g/dL (6.4-8.2); Sodium Level 138 mmol/L (136-145); Troponin-I HS 138 pg/mL (3.0-78.0)
--- NOTE | 2022-09-23 10:21 | PCM.HP.STD ---
HPI - General General Date of Admission: 09/23/22 Date of Service: 09/23/22 Chief Complaint: Leg swelling HPI Narrative Jose Rodriguez is a 81-year-old male with a history of BPH, afib, GERD, RA, CAD, heart failure with preserved ejection fraction presented to [facility] 09/23 by boss d/t soaked pants d/t draining serous fluid. 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 In the ED wound care was contacted and they recommended placing an Unna boot and outpatient follow-up. Initial plan was discharged home however he was found to be 86 to 88% on room air in the ED and was placed on O2. In the ED blood pressure 117/68 with a heart rate of 79 and 93% on room air that dipped down to 88%. Hemoglobin 8.1. Elevated troponin of 138. BNP 243. chest x-ray suggestive of mild scarring bilaterally but stable exam. Hospitalist consulted for acute hypoxia and elevated troponin. Patient was evaluated in the emergency department and reported that he has been feeling and and sluggish and fatigued for very long time and has had increased swelling in his legs over the past couple of years with worsening and increasing shortness of breath over the past 1 to 2 months. He is following with Dr. Vergara recently for anemia and is undergoing work-up and was placed on iron 2 days ago. Has rheumatoid arthritis and follows with Dr. Plasencia and also sees Dr. Rust for pain management. Reports this morning when he went to put pants on he felt his right leg hurting slightly but went to work and then noticed that there was fluid leaking everywhere and he was told to go home and decided to come to the emergency department for further evaluation. Reports poor appetite but that he has been gaining weight. Also reports a growing bump on the top of his right shoulder that has been more recent but is being monitored by his PCP. Denies other complaints at this time. [facility] Medical History Abnormal echocardiogram Abnormal EKG Anemia Appetite loss Atherosclerotic heart disease of [place] coronary artery without angina pectoris Atrial fibrillation Atrial fibrillation with rapid ventricular response Back pain Cardiology follow-up encounter Coronary artery disease Debility Easy bruising Edema Fever Fever Former smoker H/o finger stitches H/o three feet of intestines removed Hemorrhoids History of atrial fibrillation History of echocardiogram History of edema History of heart attack History of irregular heartbeat History of steroid therapy History of stress test Inflammatory arthritis Insomnia Left groin pain Left ventricular hypokinesis Left wrist pain Leg pain, bilateral Lumbar spinal stenosis Muscle spasm Osteoarthritis of left knee Paroxysmal atrial fibrillation PAT (paroxysmal atrial tachycardia) Rheumatoid arthritis Rheumatoid arthritis Right groin pain Right hip joint effusion Scrotal pain Shortness of breath on exertion SVT (supraventricular tachycardia) Syncope Wears glasses Home Medications tamsulosin 0.4 mg capsule 0.4 mg PO DAILY@1800 Retention 07/18/20 [History Last Taken 08/11/20 18:32] Blood pressue cuff #1 ea 09/28/20 [Rx Last Taken Unknown] folic acid 1 mg tablet 2 mg PO DAILY 09/28/20 [History Last Taken Unknown] finasteride 1 mg tablet 5 mg PO DAILY 12/30/20 [History Last Taken Unknown] miscellaneous medical supply 1 ea miscellaneous DIRECTED #1 ea 12/30/20 [Rx Last Taken Unknown] prednisone 5 mg tablet 10 mg PO PRN PRN Spasms 12/30/20 [History Last Taken Unknown] multivitamin (Daily Multi-Vitamin tablet) 1 tab PO DAILY 01/01/21 [History Last Taken Unknown] trazodone 100 mg tablet 150 mg PO QHS 05/09/21 [History Last Taken Unknown] atorvastatin 40 mg tablet (Lipitor) 40 mg PO QHS Cholesterol #90 tabs 10/04/21 [Rx Last Taken Unknown] amiodarone 200 mg tablet 200 mg PO DAILY heart rate #90 tabs 10/08/21 [Rx Last Taken Unknown] aspirin 81 mg tablet,delayed release 81 mg PO DAILY #1 TAB 01/10/22 [Rx Last Taken Unknown] mirtazapine 15 mg tablet 15 mg PO QHS 01/10/22 [History Last Taken Unknown] vitamin B12 2,500 mcg-folic acid 400 mcg disintegrating tablet 1 tab PO DAILY 01/10/22 [History Last Taken Unknown] cyclobenzaprine 10 mg tablet 10 mg PO DAILY PRN muscle spasms 02/07/22 [History Last Taken Unknown] tramadol 50 mg tablet 50 mg PO TID PRN Pain 02/07/22 [History Last Taken Unknown] gabapentin 100 mg tablet 300 mg PO DAILY 05/31/22 [History Last Taken Unknown] golimumab 12.5 mg/mL intravenous solution (Simponi ARIA) mg IV 05/31/22 [History Last Taken Unknown] rivaroxaban 20 mg tablet (Xarelto) 20 mg PO DAILY #90 tabs 06/13/22 [Rx Last Taken Unknown] buprenorphine 10 mcg/hour weekly transdermal patch 1 patch transdermal QWEEK 09/20/22 [History Last Taken Unknown] furosemide 40 mg tablet (Lasix) 40 mg PO DAILY 09/20/22 [History Last Taken Unknown] polysaccharide iron complex 150 mg iron capsule (Ferrex) 150 mg PO DAILY 90 days #90 caps 09/21/22 [Rx Last Taken Unknown] Allergy/AdvReac Type Severity Reaction Status Date / Time No Known Allergies Allergy Verified 09/23/22 07:10 Family History Father CVA (cerebral vascular accident) Brother CAD (coronary artery disease) CABG X 3 Mother CVA (cerebral vascular accident) Grandfather Cancer prostate Surgical History H/O colonoscopy H/O umbilical hernia repair History of cardiac catheterization History of coronary artery stent placement (08/06/20) History of coronary artery stent placement History of lumbar surgery Hx of colectomy Hx of laminectomy Hx of transurethral resection of prostate S/P appendectomy S/P cataract surgery S/P hemorrhoidectomy S/P inguinal hernia repair S/P laparoscopic cholecystectomy S/P left colectomy S/P rotator cuff repair S/P vasectomy Social History household members: none Smoking Status: Former smoker how long ago did patient quit smokin years ago alcohol intake: never substance use type: does not use diet: low salt caffeine: Yes Type: coffee Number of servings: 4 ROS ROS Narrative General: Denies fever/chills, has had some weight gain but poor appetite HENT: Denies headache, some nasal congestion, denies sore throat EYES: Denies changes in vision Resp: Increasing shortness of breath over past couple months Cardiac: Denies chest pain GI: Denies abdominal pain, denies changes in bowel, denies nausea/vomiting, poor p.o. : Denies changes in urination Extremity: Worsening swelling in his extremities for several years but more so over the past 2 months MSK: Feels sluggish and fatigued Neuro: Denies any numbness/tingling Heme: Denies any changes in bleeding Skin: Skin changes on legs Psychiatric: Feeling sluggish and blocked Vital Signs Vital Signs Vital Signs: 09/23/22 07:11 09/23/22 07:11 09/23/22 08:11 Temperature 98.4 F Temperature Source Temporal Pulse Rate 79 Respiratory Rate 18 16 Respiratory Effort Normal Non-Labored Respiratory Pattern Normal Blood Pressure 117/68 Blood Pressure Mean 84 Pulse Ox 93 88 Oxygen Delivery Method Room Air Room Air 09/23/22 08:13 09/23/22 09:59 Temperature 98.4 F Temperature Source Oral Pulse Rate 71 Respiratory Rate 16 12 Respiratory Effort Respiratory Pattern Blood Pressure 157/71 H Blood Pressure Mean 99 Pulse Ox 99 100 Oxygen Delivery Method Nasal Cannula Room Air Weight Weight: 71.9 kg Body Mass Index (BMI) 27.1 Physical Exam Narrative General: Alert, oriented HEENT: Atraumatic, normocephalic Eyes: Anicteric, normal conjunctiva, extraocular movements grossly intact Neck: Supple Respiratory: Diminished, normal respiratory effort Cardiovascular: Regular rate and rhythm GI: Soft, nontender, nondistended Extremities: 4+ bilateral lower extremity edema, tops of feet blottable and feel filled with fluid, does have dusky fingers and clubbing, also chronic knuckle deforminty consistent with RA Musculoskeletal: Moving all extremities Neuro: No overt focal neurological deficits Skin: Changes on left lower extremity, right lower extremity is wrapped with no drainage Psych: Cooperative Results Lab / Micro Data Result Diagrams: 09/23/22 08:08 09/23/22 08:08 Labs: Laboratory Results - last 24 hr 09/23/22 08:08: WBC 5.8, RBC 2.93 L, Hgb 8.1 L, Hct 27.0 L, MCV 92.2, MCH 27.6, MCHC 30.0 L, RDW Std Deviation 55.1 H, RDW Coeff of Jaciel 16.6 H, Plt Count 316, MPV 9.0, Immature Gran % (Auto) 0.300, Neut % (Auto) 69.7, Lymph % (Auto) 15.8 L, [place] % (Auto) 11.1 H, Eos % (Auto) 2.2, Baso % (Auto) 0.9, Absolute Neuts (auto) 4.1, Absolute Lymphs (auto) 0.92, Nucleated RBC % 0 09/23/22 08:08: Sodium 138, Potassium 3.6, Chloride 105, Carbon Dioxide 31.0, Anion Gap 2 L, BUN 15, Creatinine 0.94, Estim Creat Clear Calc 53.36, Est GFR (MDRD) Af Amer 99, Est GFR (MDRD) Non-Af 82, BUN/Creatinine Ratio 15.9, Glucose 104, Calcium 8.2 L, Total Bilirubin 0.90, AST 29, ALT 28, Alkaline Phosphatase 89, Troponin I High Sens 138 H*, Total Protein 5.9 L, Albumin 2.9 L, Globulin 3.0, Albumin/Globulin Ratio 1.0 09/23/22 08:08: B-Natriuretic Peptide 243.4 H Radiology Impression Chest X-Ray 09/23/22 07:53 IMPRESSION: Stable examination. Findings suggestive of mild scarring bilaterally. Electronically Signed: Nicko Yoon MD at 8:47 EDT , Assessment & Plan Assessment/Plan (1) Hypoxia: (2) Elevated troponin: (3) Elevated brain natriuretic peptide (BNP) level: PLAN: Plan #Acute hypoxia -88% on room air in the ED which improved with nasal cannula -Suspect this is multifactorial, does appear to have some overload suggesting cor pulmonale but no overt edema seen on chest x-ray. Is known to have heart failure with preserved ejection fraction. -Chest x-ray suggestive of mild scarring bilaterally but stable exam, suspect there is an additional etiology in addition to fluid overload -BNP 243 with no previous for comparison -Last echo 01/27/2022 with an EF of 55%, mild to moderate mitral valve insufficiency, RVSP of 35, stage II diastolic dysfunction -We will repeat echocardiogram -Does take Lasix 40 mg daily, will start IV dosing -I's and O's, daily weights -We will check CT chest to further characterize -We will check COVID and flu -May need to follow-up with a general contractor on discharge -Very low suspicion for PE I feel there is more likely other etiologies, additionally per documentation he is on Xarelto, will need to confirm this -Reports remote history of smoking, quit 52 years ago. Does not have a general contractor -No wheezing, do not suspect COPD, can add albuterol as needed #Elevated troponin -138 in the ED, will cycle -EKG NSR, 83HR, RBBB -Cards called in ED and agreed w/ ASA and trending troponins #HFpEF -Grade II diastolic dysfunction on echo in 2021 -BNP 243 and appears peripherally overloaded -Repeat echo #Normocytic anemia -8.1 in the ED, 2 days ago was 8.4 and 9.1 on 09/12. Prior to that baseline seen between and -FOBT submitted yesterday on outpatient basis was negative -Follows with Dr. Short, will continue iron supplementation #Hx cad with stent 08/06/2020 -PCI of OM2 with GAGE in 2020 but unsuccessful PCI of BEND UP of LAD -Has troponin of 138 however no chest pain -Continue aspirin -If chest pain develops or troponin significantly elevates will consult cardiology #Chronic pain -Continue buprenorphine patch #pafib -Continue amiodarone -Continue Xarelto #RA -Pt reports he follows w/ rheum as outpt -Takes pred PRN, not presently taking #BLE edema and weeping -Unna boot -Wound care consult #DVT ppx: Continue Xarelto, if not presently on xeralto will need to add dvt ppx Aisha Vega MD Time spent in the patient's overall evaluation,decision-making process, review of diagnostic data, adjustment of management, discussion with other providers, nursing nursing and ancillary staff involved in patient's care documentation, 60 minutes Charges/Coding Visit Charges Inpatient E&M: 65060 Init Hosp L2
--- NOTE | 2022-09-23 10:45 | ECHOD_ITS ---
Reason For Study: DYSPNEA Procedure This was a 2D Doppler, Color Flow transthoracic echocardiogram. Exam performed portable in patient room. Left Ventricle Normal LV size. The estimated ejection fraction is 50 %. Unable to assess diastolic dysfunction. [place] : Hypokinetic. Right Ventricle Normal RV size. Normal systolic function. Atria The left atrium is mildly enlarged. Normal right atrium. No doppler evidence for ASD. Mitral Valve There is moderate mitral annular calcification. There is no mitral valve stenosis. Trivial mitral valve insufficiency. Tricuspid Valve There is no tricuspid stenosis. Trivial tricuspid valve insufficiency. Unable to estimate RV systolic pressure due to insufficient tricuspid regurgitant envelope. Aortic Valve Moderate diffuse aortic valve thickening. Echodensity related to the aortic valve, likely Lambl's excrescence. Moderate aortic stenosis. No aortic valve insufficiency. Pulmonic Valve There is no pulmonic valvular stenosis. No pulmonic valve insufficiency. Great Vessels Normal aortic root. Pericardium/Pleural Small pericardial effusion. MMode/2D Measurements & Calculations LVIDd: 5.2 cm IVSd: 1.1 cm LVOT diam: 1.9 cm LVIDs: 3.7 cm LVPWd: 0.94 cm LVOT area: 2.8 cm2 RVDd: 3.0 cm FS: 28.0 % Ao root diam: 3.6 cm LAV(MOD-bp): 72.0 ml LVAd ap4: 31.2 cm2 LAV(MOD-bp) Indexed: 40.7 ml/m2 LVLd ap4: 9.4 cm LAV(MOD-sp2): 72.8 ml EDV(MOD-sp4): 88.2 ml LAV(MOD-sp4): 59.6 ml EDV(sp4-el): 87.8 ml LVAs ap4: 18.6 cm2 LVLs ap4: 8.3 cm ESV(MOD-sp4): 35.1 ml ESV(sp4-el): 35.4 ml EF(MOD-sp4): 60.2 % EF(sp4-el): 59.7 % SV(MOD-sp4): 53.1 ml SV(sp4-el): 52.4 ml LA A4 area: 24.2 cm2 LA dimension(2D): 4.4 cm RA A4 area: 12.4 cm2 Time Measurements MV dec time: 0.28 sec Doppler Measurements & Calculations MV E max pardeep: 113.1 cm/sec Lat Peak E' Pardeep: 10.1 cm/sec Med Peak E' Pardeep: 7.4 cm/sec MV A max pardeep: 113.5 cm/sec E/E' lat: 11.2 E/E' med: 15.3 MV E/A: 1.00 MV V2 max: 123.9 cm/sec Ao V2 max: 310.8 cm/sec MV max P.1 mmHg MV dec slope: 400.1 cm/sec2 Ao max P.9 mmHg MV V2 mean: 81.8 cm/sec Ao V2 mean: 219.0 cm/sec MV mean P.9 mmHg Ao mean P.1 mmHg MV V2 VTI: 46.8 cm Ao V2 VTI: 77.5 cm AV (velocity ratio): 0.40 MVA(VTI): 1.9 cm2 LEYLA(I,D): 1.1 cm2 LEYLA(V,D): 1.2 cm2 LV V1 max: 134.9 cm/sec MR max pardeep: 522.4 cm/sec SV(LVOT): 88.6 ml LV V1 max P.3 mmHg MR max P.1 mmHg LV V1 mean P.6 mmHg LV V1 mean: 102.1 cm/sec LV V1 VTI: 31.1 cm PA V2 max: 158.8 cm/sec PA V2 mean: 98.0 cm/sec ECHO/Echo Complete Interpretation Summary The estimated ejection fraction is 50 %. Unable to assess diastolic dysfunction. [place] : Hypokinetic. The left atrium is mildly enlarged. Trivial mitral valve insufficiency. Moderate aortic stenosis. Small pericardial effusion. Ordering Physician: Aisha Vega Referring Physician: Gloria Hazel M.D. Performed By: Pily Joaquin RCS
--- NOTE | 2022-09-23 10:45 | CT_ITS ---
STUDY: CT CHEST WITHOUT CONTRAST REASON FOR EXAM: Male, 81 years old. Acute hypoxia RADIATION DOSAGE (If Supplied By Facility): CTDIvol = ( 8.64 ) mGy, DLP = ( 306.42 ) mGycm TECHNIQUE: Transaxial imaging was performed without the administration of intravenous contrast material. Multiplanar coronal and sagittal images were reformatted. Individualized dose optimization techniques were used for this CT. COMPARISON: Comparison is made with prior chest radiograph done earlier today. FINDINGS: CHEST There are multiple bilateral focal areas of airspace disease more prominent in the left upper lobe as well as in the right middle lobe and lung bases. Tiny left pleural effusion. There are calcifications of the coronary arteries. Small anterior pericardial effusion. There are multiple small lymph nodes within the mediastinum, which are normal in size and morphology most compatible with reactive lymph hyperplasia. Normal hilar regions. Normal unenhanced pulmonary arteries. There is atherosclerotic calcification of the aortic arch with tortuosity and elongation of the aortic arch and descending thoracic aorta. The root of the ascending thoracic aorta is dilated and measures 41.9 mm. There are multi-level degenerative changes of the thoracic spine. Tiny nonobstructive calculus in the midportion of the left kidney. CT/Chest without Contrast IMPRESSION: Multiple areas of patchy airspace disease in both lungs as described. Follow-up recommended. Minimal left pleural effusion. Electronically Signed: Nicko Yoon MD at 11:54 EDT ,
--- NOTE | 2022-09-23 10:55 | RAD_ITS ---
STUDY: X-RAY - RIGHT SHOULDER REASON FOR EXAM: Male, 81 years old. R shoulder growth TECHNIQUE: 2 view(s) of the shoulder. COMPARISON: Comparison is made with prior study dated March 15, 2021. FINDINGS: There is moderate degenerative arthrosis of the glenohumeral articulation. There is hypertrophic osteoarthrosis of the acromioclavicular joint with inferior osseous spur formation. Normal acromion. Metallic anchors are seen in the humeral head suggestive of prior rotator cuff surgery. There is periarticular soft tissue calcification consistent with a calcific tendinitis. The C1 0.4 cm x 2 cm soft tissue density overlying the acromioclavicular joint. RAD/Shoulder min 2 Views IMPRESSION: Degenerative changes. Calcific tendinitis. Evidence of prior rotator cuff repair. 2 cm x 1.4 cm soft tissue density overlying the acromioclavicular joint. Electronically Signed: Nicko Yoon MD at 11:55 EDT ,
[2022-09-23 11:42] LABS: Troponin-I HS 164 pg/mL (3.0-78.0)
[2022-09-23 12:00] LABS: Allen Test Positive; Base Excess 6 mmol/L (-2 to +2); Bicarbonate 30.6 mmol/L (22-26); Blood Gas Specimen Type ART; O2 Delivery Device Cannula; PO2 82 mmHG (75-100); SITE R Radial; SO2 96 % (95-99); Total Carbon Dioxide 32 mmol/L; pH 7.42 (7.35-7.45)
[2022-09-23] MEDS: 0.9% Saline Lock 10 ML Syringe IV (12:49)
[2022-09-23] MEDS: Amiodarone 200 MG Tablet PO (12:49)
[2022-09-23] MEDS: Furosemide 40 MG/4 ML Vial IV (12:50)
[2022-09-23] MEDS: Tamsulosin HCl 0.4 MG Capsule PO (18:03)
[2022-09-23] MEDS: Rivaroxaban 20 MG Tablet PO (18:03)
[2022-09-23] MEDS: Ensure Plus High Protein 120 ML LIQUID PO ×2 (18:04→21:15)
[2022-09-23] MEDS: Atorvastatin Calcium 40 MG Tablet PO (21:14)
[2022-09-23] MEDS: Acetaminophen 325 MG Tablet 650 MG PO (21:14)
[2022-09-23] MEDS: Mirtazapine 15 MG Tablet PO (21:15)
[2022-09-24] VITALS (7 sets, daily range): BP systolic 94–148; BP diastolic 54–69; PULSE 66–75; RESP 18–20; TEMP 36.6–37.2; O2SAT 95–98; BMI 27.5
[2022-09-24] MEDS: Acetaminophen 325 MG Tablet 650 MG PO ×3 (05:14→21:09)
[2022-09-24 08:40] LABS: Absolute Lymphocyte Count 0.91 X10^3/uL (0.83-4.51); Absolute Neutrophil Count 5.5 X10^3/uL (2.0-7.7); Basophil# 0.04 X10^3/uL; Basophil% 0.5 % (0-1); Eosinophil# 0.16 X10^3/uL; Eosinophils% 2.2 % (0-5); Hematocrit 27.9 % (40-54); Hemoglobin 8.5 g/dL (13.0-16.5); Lymphocyte # 0.91 X10^3/ul (0.83-4.51); Lymphocyte % 12.3 % (19-41); Mean Corp Hgb Conc 30.5 g/dL (32-36); Mean Corpuscular Hgb 27.9 pg (27.0-32.0); Mean Corpuscular Volume 91.5 fL (80-94); Mean Platelet Vol. 9.2 fl (6.2-12.0); Monocyte# 0.81 X10^3/uL; Monocyte% 10.9 % (0-10); NRBC Flagged by Analyzer 0 % (0-5); Neutrophil # 5.46 X10^3/uL (2.7-7.7); Neutrophil % 73.7 % (47-70); Platelet Count 313 K/mm3 (150-450); RBC Distribution Width CV 16.9 % (11.6-14.6); RBC Distribution Width SD 55.3 fl (35.1-43.9); Red Blood Count 3.05 M/mm3 (4.6-6.2); White Blood Count 7.4 K/mm3 (4.4-11.0)
[2022-09-24 09:07] LABS: Anion Gap 2 (5-15); BUN 15 mg/dL (7-18); BUN/Creat Ratio 19.6 RATIO (10-20); Calcium,Total 8.4 mg/dL (8.5-10.1); Chloride 109 mmol/L (98-107); Creatinine, Serum 0.76 mg/dL (0.70-1.30); EST Glomerular Filtration Rate 104 mL/min (>60); Est Glom Filt Rate - Afr Amer 126 mL/min (>60); Estimated Creatinine Clearance 46.26 ml/min; Glucose 100 mg/dL (74-106); Potassium 3.4 mmol/L (3.5-5.1); Sodium Level 140 mmol/L (136-145)
--- NOTE | 2022-09-24 10:17 | PCM.PN.HOSP ---
Reason for Visit Reason for Visit: Diagnoses Hypoxemia (09/23/22) Other specified abnormalities of plasma proteins (09/23/22) Other specified abnormal findings of blood chemistry (09/23/22) Subjective Subjective Somewhat irritable this morning. Does report his swelling and breathing are improving. Denies chest pain Objective Data Objective Data Vital Signs: Vital Signs Temp Pulse Resp BP Pulse Ox O2 Del Method O2 Flow Rate 98.9 F 72 18 148/69 H 95 Room Air 2 09/24/22 03:00 09/24/22 03:00 09/24/22 03:00 09/24/22 03:00 09/24/22 03:00 09/24/22 07:59 09/24/22 04:01 Oxygen Flow Rate (L/min) 2 Oxygen Delivery Method Room Air Weight: 68.3 kg Body Mass Index (BMI) 27.5 Intake & Output: Intake and Output for Last 24 Hours 09/22/22 09/23/22 09/24/22 23:59 23:59 23:59 Intake Total 650 / 950 500 / 500 Output Total 1200 / 1200 Balance -550 / -250 500 / 500 Lab / Micro Data Result Diagrams: 09/24/22 08:25 09/24/22 08:25 Labs: Laboratory Results - last 24 hr 09/23/22 11:15: Troponin I High Sens 164 H* 09/24/22 08:25: WBC 7.4, RBC 3.05 L, Hgb 8.5 L, Hct 27.9 L, MCV 91.5, MCH 27.9, MCHC 30.5 L, RDW Std Deviation 55.3 H, RDW Coeff of Jaciel 16.9 H, Plt Count 313, MPV 9.2, Immature Gran % (Auto) 0.400, Neut % (Auto) 73.7 H, Lymph % (Auto) 12.3 L, [place] % (Auto) 10.9 H, Eos % (Auto) 2.2, Baso % (Auto) 0.5, Absolute Neuts (auto) 5.5, Absolute Lymphs (auto) 0.91, Nucleated RBC % 0 09/24/22 08:25: Sodium 140, Potassium 3.4 L, Chloride 109 H, Carbon Dioxide 29.0, Anion Gap 2 L, BUN 15, Creatinine 0.76, Estim Creat Clear Calc 46.26, Est GFR (MDRD) Af Amer 126, Est GFR (MDRD) Non-Af 104, BUN/Creatinine Ratio 19.6, Glucose 100, Calcium 8.4 L, TSH 2.20 Micro: Microbiology 09/23/22 11:35 Mucosa - Nasopharyngeal Respiratory Panel (PCR) - Final 09/23/22 12:10 Nasal Secretion SARS-CoV-2 & FLU Antigen (Rapid) - Final ABG Data ABG results: ABG 09/23/22 11:53 Specimen Type ART Sample Site R Radial pH 7.42 Bicarbonate Actual 30.6 H Total CO2 32 Base Excess 6 H O2 Saturation 96 ABG pCO2 47.0 H ABG pO2 82 Rayray Test Positive O2 Delivery Device Cannula Liter Flow 3.0 Radiography Diagnostic Testing: Radiology Impression Chest CT 09/23/22 10:45 IMPRESSION: Multiple areas of patchy airspace disease in both lungs as described. Follow-up recommended. Minimal left pleural effusion. Electronically Signed: Nicko Yoon MD at 11:54 EDT , Shoulder X-Ray 09/23/22 10:55 IMPRESSION: Degenerative changes. Calcific tendinitis. Evidence of prior rotator cuff repair. 2 cm x 1.4 cm soft tissue density overlying the acromioclavicular joint. Electronically Signed: Nicko Yoon MD at 11:55 EDT , Physical Exam Narrative General: Alert, oriented HEENT: Atraumatic, normocephalic Eyes: Anicteric, normal conjunctiva, extraocular movements grossly intact Neck: Supple Respiratory: No overt crackles or wheezes appreciated, normal respiratory effort Cardiovascular: Regular rate and rhythm GI: Soft, nontender, nondistended Extremities: 2-3+ bilateral lower extremity edema, wrinkles forming, improved Musculoskeletal: Moving all extremities Neuro: No overt focal neurological deficits Skin: Right lower extremity remains wrapped Psych: Irritable Assessment & Plan Assessment/Plan (1) Hypoxia: (2) Elevated troponin: (3) Elevated brain natriuretic peptide (BNP) level: PLAN: Plan #Acute hypoxia secondary to acute on chronic heart failure with preserved ejection fraction -88% on room air in the ED which improved with nasal cannula -Suspect this is multifactorial, does appear to have some overload suggesting cor pulmonale but no overt edema seen on chest x-ray. Is known to have heart failure with preserved ejection fraction. -Chest x-ray suggestive of mild scarring bilaterally but stable exam, suspect there is an additional etiology in addition to fluid overload -BNP 243 with no previous for comparison -Last echo 01/27/2022 with an EF of 55%, mild to moderate mitral valve insufficiency, RVSP of 35, stage II diastolic dysfunction -We will repeat echocardiogram -Does take Lasix 40 mg daily, will start IV dosing -I's and O's, daily weights -We will check CT chest to further characterize -We will check COVID and flu -May need to follow-up with a naphthalene operator on discharge -Very low suspicion for PE I feel there is more likely other etiologies, additionally per documentation he is on Xarelto, will need to confirm this -Reports remote history of smoking, quit 52 years ago. Does not have a naphthalene operator -No wheezing, do not suspect COPD, can add albuterol as needed -09/24: Improved with IV Lasix, will continue IV Lasix today and daily weights, is down in weight and legs have wrinkles and breathing improved. Echo pending #Elevated troponin -138 in the ED, will cycle -EKG NSR, 83HR, RBBB -Cards called in ED and agreed w/ ASA and trending troponins -09/24: Troponin 138 and then 164, suspect NSTEMI type II due to exacerbation of chronic heart failure with preserved ejection fraction. Did not have chest pain and still does not have chest pain. Do not feel cardiology consult is warranted at this time #HFpEF -Grade II diastolic dysfunction on echo in 2021 -BNP 243 and appears peripherally overloaded -Repeat echo -09/24: See above #Normocytic anemia -8.1 in the ED, 2 days ago was 8.4 and 9.1 on 09/12. Prior to that baseline seen between 11 and 12 -FOBT submitted yesterday on outpatient basis was negative -Follows with Dr. Short, will continue iron supplementation #Hx cad with stent 08/06/2020 -PCI of OM2 with GAGE in 2020 but unsuccessful PCI of PRODUCT EXAMINER of LAD -Has troponin of 138 however no chest pain -Continue aspirin -If chest pain develops or troponin significantly elevates will consult cardiology -09/24: No chest pain, suspect elevated troponin was type II, do not feel cardiology consult is warranted #Chronic pain -Continue buprenorphine patch #pafib -Continue amiodarone -Continue Xarelto #RA -Pt reports he follows w/ rheum as outpt -Takes pred PRN, not presently taking #BLE edema and weeping -Unna boot -Wound care consult #DVT ppx: Continue Xarelto Aisha Vega MD Time spent in the patient's overall evaluation,decision-making process, review of diagnostic data, adjustment of management, discussion with other providers, nursing nursing and ancillary staff involved in patient's care documentation, 30 minutes Charges/Coding Visit Charges Inpatient E&M: 61202 Subs Hosp L2
[2022-09-24] MEDS: Amiodarone 200 MG Tablet PO (10:34)
[2022-09-24] MEDS: Ensure Plus High Protein 120 ML LIQUID PO ×4 (10:35→21:09)
[2022-09-24] MEDS: Aspirin E.C. 81 MG Tablet PO (10:35)
[2022-09-24] MEDS: Folic Acid 1 MG Tablet 2 MG PO (10:35)
[2022-09-24] MEDS: Iron Polysaccharide Complex 150 MG CAPSULE PO (10:35)
[2022-09-24] MEDS: Finasteride 5 MG Tablet PO (10:36)
[2022-09-24] MEDS: Furosemide 40 MG/4 ML Vial IV (10:41)
[2022-09-24] MEDS: Gabapentin 300 MG Capsule PO (10:50)
--- NOTE | 2022-09-24 12:35 | CASEMGMT ---
ELROY COLLAZO DC Planning Assessment: Face to Face with patient for initial transition planning/care coordination assessment. ELROY COLLAZO introduced self and role at [facility], pt voices understanding.?Pt alert, oriented x4 and agreeable to participating in assessment. Care providers, pharmacy,?and demographics verified. ? PCP: [facility] Specialists: Friend (GI), Erinn (weld technician), Barrera (pain), Deja (hematology), [facility] Preferred Pharmacy: [facility] Insurance: [facility] Prescription Benefit:?yes Living Will/HPOA: yes, HPOA daughter Melanie; Encouraged pt to bring in documents for inclusion in his medical record. LNOK: Daughter Melanie Living Arrangements: Pt lives alone in a two story home with a first floor set-up and one step to enter. Pt states he is independent with ADLs including self care and household tasks. Pt states his laundry is in the basement and he does navigate these stairs by hanging on tight to the handrail. Pt's neighbor's son mows the yard. 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 Pt states he manages his own medications and has a system to know what to take when. Transportation: pt drives and denies any concerns with transportation DME: cane, shower chair, grab bars, hand held shower, BP monitor SNF/HHC: pt denies any previous providers ? Plan: Pt plans to return home at discharge. States he has a scale and weighs himself regularly. Discussed options including [facility] program and HHC but pt declined these services stating I'm stubborn. Will continue to monitor and assist with any discharge needs as identified. Stephen Monteiro RN CM
[2022-09-24] MEDS: Potassium Chloride 10mEq/100mL 10 MEQ/100 ML IV.SOLN. 100 MEQ IV BOLUS (13:53)
[2022-09-24] MEDS: Rivaroxaban 20 MG Tablet PO (17:13)
[2022-09-24] MEDS: Tamsulosin HCl 0.4 MG Capsule PO (17:14)
[2022-09-24] MEDS: MELATONIN 3 MG TABLET PO (21:09)
[2022-09-24] MEDS: Atorvastatin Calcium 40 MG Tablet PO (21:10)
[2022-09-24] MEDS: Mirtazapine 15 MG Tablet PO (21:10)
[2022-09-25 04:08] VITALS: BMI 27.2
[2022-09-25 04:15] VITALS: BP 132/65; PULSE 72; RESP 18; TEMP 37.3; O2SAT 92
[2022-09-25] MEDS: Acetaminophen 325 MG Tablet 650 MG PO (04:29)
[2022-09-25 04:31] VITALS: O2SAT 95
--- NOTE | 2022-09-25 04:31 | NUR.TO.PHY ---
pt requested to be put on oxygen via NC for SOB. pt saturation of 92% on RA, 95% on 2L. LS clear. no further concerns at this time.
[2022-09-25 05:58] LABS: Absolute Lymphocyte Count 1.26 X10^3/uL (0.83-4.51); Absolute Neutrophil Count 6.3 X10^3/uL (2.0-7.7); Basophil# 0.03 X10^3/uL; Basophil% 0.3 % (0-1); Eosinophil# 0.32 X10^3/uL; Eosinophils% 3.6 % (0-5); Hematocrit 27.4 % (40-54); Hemoglobin 8.4 g/dL (13.0-16.5); Lymphocyte # 1.26 X10^3/ul (0.83-4.51); Lymphocyte % 14.3 % (19-41); Mean Corp Hgb Conc 30.7 g/dL (32-36); Mean Corpuscular Hgb 28.1 pg (27.0-32.0); Mean Corpuscular Volume 91.6 fL (80-94); Mean Platelet Vol. 9.2 fl (6.2-12.0); Monocyte# 0.88 X10^3/uL; NRBC Flagged by Analyzer 0 % (0-5); Neutrophil # 6.32 X10^3/uL (2.7-7.7); Neutrophil % 71.5 % (47-70); Platelet Count 289 K/mm3 (150-450); RBC Distribution Width CV 16.8 % (11.6-14.6); RBC Distribution Width SD 55.3 fl (35.1-43.9); Red Blood Count 2.99 M/mm3 (4.6-6.2); White Blood Count 8.8 K/mm3 (4.4-11.0)
[2022-09-25 06:34] LABS: Anion Gap 3 (5-15); BUN 14 mg/dL (7-18); BUN/Creat Ratio 18.3 RATIO (10-20); Calcium,Total 8.2 mg/dL (8.5-10.1); Chloride 105 mmol/L (98-107); Creatinine, Serum 0.77 mg/dL (0.70-1.30); EST Glomerular Filtration Rate 104 mL/min (>60); Est Glom Filt Rate - Afr Amer 126 mL/min (>60); Estimated Creatinine Clearance 46.26 ml/min; Glucose 114 mg/dL (74-106); Potassium 3.6 mmol/L (3.5-5.1); Sodium Level 139 mmol/L (136-145)
[2022-09-25 08:57] VITALS: BP 128/64; PULSE 74; RESP 15; TEMP 36.8; O2SAT 93
[2022-09-25] MEDS: Folic Acid 1 MG Tablet 2 MG PO (09:06)
[2022-09-25] MEDS: Furosemide 40 MG Tablet PO (09:06)
[2022-09-25] MEDS: Gabapentin 300 MG Capsule PO (09:06)
[2022-09-25] MEDS: Amiodarone 200 MG Tablet PO (09:07)
[2022-09-25] MEDS: Aspirin E.C. 81 MG Tablet PO (09:07)
[2022-09-25] MEDS: Iron Polysaccharide Complex 150 MG CAPSULE PO (09:07)
[2022-09-25] MEDS: Ensure Plus High Protein 120 ML LIQUID PO (09:07)
[2022-09-25] MEDS: Finasteride 5 MG Tablet PO (09:08)
[2022-09-25 09:45] VITALS: BP 128/64; PULSE 74; RESP 15; TEMP 36.8; O2SAT 93
[2022-09-25 13:35] VITALS: O2SAT 91; O2SAT 93
--- NOTE | 2022-09-25 14:07 | DCINST_ITS ---
Discharge Instructions Diet Discharge Diet: - (DASH diet, 3000 mg sodium restriction, 2 L fluid restriction) Activity Discharge Activity: Return to Normal Activity Return to work on:: 09/28/22 Follow Up Care Test Results: Test results from this visit will be discussed in further detail at your follow- up appointment, if applicable. Discharge Plan Admission Admit Date/Time: 09/23/22 10:24 Primary Reason for Your Visit: Let him Attending Provider: Aisha Vega Primary Care Provider: Gloria Hazel Instructions Patient Instructions: Heart Failure Dc Additional Instructions / Restrictions: DISCHARGE INSTRUCTIONS PLEASE READ *Please take this with you to your next doctors appointment* -You were here with fluid overload and required IV Lasix. -Please resume 40 mg of Lasix in the morning as well as limit your sodium intake to less than 3 g/day and fluids to 2 L a day as much as possible. This combination now that you have been diuresed (given lasix through the IV with adequate water urinated out) will help keep you at your current weight/fluid status. -On the day of discharge you are 148.8 pounds by our scale. Would recommend you weigh yourself tomorrow morning and write down this weight and use this as your current baseline weight. Weigh yourself every day. A sudden weight gain can mean you are retaining fluid. Weigh yourself at the same time of day and in the same kind of clothes. Ideally, weigh yourself first thing in the morning after you empty your bladder, but before you eat breakfast. -Please call your physician if your weight goes up by more than 2 pounds in 1 day or 5 pounds in 1 week. This can be a sign that you are retaining more fluid than you should be. Clues to weight gain include checking your ankles for swelling, or noticing you are short of breath when you lie down -Strongly advise to wear compression stockings as we discussed -Please follow-up with your cardiology office upon discharge, please call Monday to schedule hospital follow-up appointment for your fluid overload and somewhat tight aortic valve which may just need to be monitored with routine echocardiograms of your heart -It is advised against taking cyclobenzaprine with history of fluid overload, would advise discontinuing this -Continue your other home medications as previously prescribed -You have a soft tissue density on your right shoulder, this can be further monitored on an outpatient basis. -You have a slight widening of your thoracic aorta but can be monitored routinely on an outpatient basis through primary care physician's office. -Return to work on 09/28/2022 Here are tips: Limit canned, dried, packaged, and fast foods. Don't add salt to your food at the table. Season foods with herbs instead of salt when you cook. When you eat out, ask that the catering chef not add any salt to your dish. Don't eat fried or greasy foods. Be careful of bottled beverages. They can contain a lot of salt -Call 911 right away if you have: -Severe shortness of breath, such that you can't catch your breath even while resting -Severe chest pain that does not resolve with rest or nitroglycerin -[place], foamy mucus with cough and shortness of breath -An ongoing rapid or irregular heartbeat -Passing out or fainting -Stroke symptoms such as sudden numbness or weakness on one side of your face, arm, or leg or sudden confusion, trouble speaking or vision changes -Please call your primary care provider's office upon discharge to schedule a hospital follow up within 1 week. -For any concerning signs or symptoms please call 911 or proceed to the nearest emergency department Discharge Orders/Prescriptions Prescriptions: Continued folic acid 1 mg tablet 2 mg PO DAILY (DME) Blood pressue cuff See Rx Instructions .Route .MEDSUPPLY Qty: 1 0RF Rx Instructions: As directed mirtazapine 15 mg tablet 15 mg PO QHS multivitamin [Daily Multi-Vitamin] Tablet 1 tab PO DAILY finasteride 1 mg tablet 5 mg PO DAILY prednisone 5 mg tablet 10 mg PO PRN PRN (Reason: Spasms) miscellaneous medical supply [facility] 1 ea miscellaneous DIRECTED Qty: 1 0RF Rx Instructions: handicap placard, for life. aspirin 81 mg tablet,delayed release (DR/EC) 81 mg PO DAILY Qty: 1 0RF polysaccharide iron complex [Ferrex 150] 150 mg iron capsule 150 mg PO DAILY 90 Days Qty: 90 0RF tamsulosin 0.4 MG capsule 0.4 mg PO DAILY@1800 trazodone 100 MG tablet 150 mg PO QHS vitamin W05-mvurg acid 2,500-400 mcg tablet,disintegrating 1 tab PO DAILY tramadol 50 mg Tablet 50 mg PO TID PRN (Reason: Pain) gabapentin 100 mg Tablet 300 mg PO DAILY Simponi ARIA 12.5 mg/mL Solution IV furosemide [Lasix] 40 mg Tablet 40 mg PO DAILY buprenorphine 10 mcg/hour Patch Weekly 1 patch TRANSDERMAL QWEEK Rx Instructions: change on Xarelto 20 mg tablet 20 mg PO DAILY Rx Instructions: must administer with evening meal atorvastatin [Lipitor] 40 mg tablet 40 mg PO QHS Qty: 90 3RF amiodarone 200 mg tablet 200 mg PO DAILY Qty: 90 3RF Discontinued cyclobenzaprine 10 mg Tablet 10 mg PO DAILY PRN (Reason: muscle spasms) Referrals / Follow Up: Gloria Hazel MD [Primary Care Provider] - Within 1 Week Salvatore Leonardo NP, [employer] [Med Staff - [facility] Practice Prof] - See Referral Note (Please follow-up with your cardiology office upon discharge, please call Monday to schedule hospital follow-up appointment.) Disposition Disposition (needs filled in before D/C Order can be placed): Home, Self Care
--- NOTE | 2022-09-25 14:20 | PCM.DC.SUM ---
Providers Date of Admission: 09/23/22 Date of Discharge: 09/25/22 Primary Care Physician: Dr. Gloria Hazel MD Consultations 09/23/22 11:24 Consult: Onc/Wound/stock wetter Routine Comment: Reason for Consult:: BLE weeping Reason For Visit: HYPOXIA Diagnosis Discharge Diagnosis (1) Hypoxia: Status: Acute Code(s): R09.02 - Hypoxemia (2) Elevated troponin: Status: Acute Code(s): R77.8 - Other specified abnormalities of plasma proteins (3) Elevated brain natriuretic peptide (BNP) level: Status: Acute Code(s): R79.89 - Other specified abnormal findings of blood chemistry Plan #Acute hypoxia secondary to acute on chronic heart failure with preserved ejection fraction #Elevated troponin 2/2 above #Normocytic anemia #Hx cad with stent 08/06/2020 #Chronic pain #pafib #RA #BLE edema and weeping Medications at Discharge Home Medications tamsulosin 0.4 mg capsule 0.4 mg PO DAILY@1800 Retention 07/18/20 Blood pressue cuff #1 ea 09/28/20 folic acid 1 mg tablet 2 mg PO DAILY 09/28/20 finasteride 1 mg tablet 5 mg PO DAILY 12/30/20 miscellaneous medical supply 1 ea miscellaneous DIRECTED #1 ea 12/30/20 prednisone 5 mg tablet 10 mg PO PRN PRN Spasms 12/30/20 multivitamin (Daily Multi-Vitamin tablet) 1 tab PO DAILY Check with primary doctor 01/01/21 trazodone 100 mg tablet 150 mg PO QHS Check with primary doctor 05/09/21 atorvastatin 40 mg tablet (Lipitor) 40 mg PO QHS Cholesterol #90 tabs 10/04/21 amiodarone 200 mg tablet 200 mg PO DAILY heart rate #90 tabs 10/08/21 aspirin 81 mg tablet,delayed release 81 mg PO DAILY #1 TAB 01/10/22 mirtazapine 15 mg tablet 15 mg PO QHS 01/10/22 vitamin B12 2,500 mcg-folic acid 400 mcg disintegrating tablet 1 tab PO DAILY Check with primary doctor 01/10/22 tramadol 50 mg tablet 50 mg PO TID PRN Pain 02/07/22 gabapentin 100 mg tablet 300 mg PO DAILY 05/31/22 golimumab 12.5 mg/mL intravenous solution (Simponi ARIA) mg IV 05/31/22 buprenorphine 10 mcg/hour weekly transdermal patch 1 patch transdermal QWEEK pain 09/20/22 furosemide 40 mg tablet (Lasix) 40 mg PO DAILY 09/20/22 polysaccharide iron complex 150 mg iron capsule (Ferrex) 150 mg PO DAILY 90 days #90 caps 09/21/22 rivaroxaban 20 mg tablet (Xarelto) 20 mg PO DAILY anticoagulation 09/23/22 Hospital Course Procedures Transthoracic echo Summary of Care Provided Minutes Spent on Discharge: 36 Hospital Course: Justo Rodriguez is a 81-year-old male with a history of BPH, afib, GERD, RA, CAD, heart failure with preserved ejection fraction presented to [facility] 09/23 by boss d/t soaked pants d/t draining serous fluid.? In the ED his O2 sats were 86 to 88% on room air and troponin 138 with a BNP of 243. Chest x-ray suggestive of mild scarring bilaterally but reported it was stable. Hospitalist consulted for admission. Legs were 3+ pitting and patient was diuresed with IV Lasix with very good results and weight loss with near resolution of leg swelling and significantly improved O2 sats. He had a repeat echo which was similar to previous. Troponin up to 164 but never had any chest pain and felt this is was a type II secondary to acute exacerbation of chronic heart failure with preserved ejection fraction. On day of discharge patient feeling much better. It appears several days ago he was started on Lasix 40 p.o. based on fill history and suspect that he was already so edematous that he was unable to absorb the Lasix and this will be an adequate dose for him on discharge and this is what he was discharged on. Discussed discharge instructions and patient verbalizes understanding: You were here with fluid overload and required IV Lasix. -Please resume 40 mg of Lasix in the morning as well as limit your sodium intake to less than 3 g/day and fluids to 2 L a day as much as possible.?This combination now that you have been diuresed (given lasix through the IV with adequate water urinated out) will help keep you at your current weight/fluid status. -On the day of discharge you are 148.8 pounds by our scale.? Would recommend you weigh yourself tomorrow morning and write down this weight and use this as your current baseline weight. Weigh yourself every day.?A sudden weight gain can mean you are retaining fluid. Weigh yourself at the same time of day and in the same kind of clothes. Ideally, weigh yourself first thing in the morning after you empty your bladder, but before you eat breakfast. -Please call your physician if your weight goes up by more than 2 pounds in 1 day or 5 pounds in 1 week. This can be a sign that you are retaining more fluid than you should be. Clues to weight gain include checking your ankles for swelling, or noticing you are short of breath when you lie down -Strongly advise to wear compression stockings as we discussed -Please follow-up with your cardiology office upon discharge, please call Monday to schedule hospital follow-up appointment?for your fluid overload and somewhat tight aortic valve which may just need to be monitored with routine echocardiograms of your heart -It is advised against taking cyclobenzaprine with history of fluid overload, would advise discontinuing this -Continue your other home medications as previously prescribed -You have a soft tissue density on your right shoulder, this can be further monitored on an outpatient basis. -You have a slight widening of your thoracic aorta but can be monitored routinely on an outpatient basis through primary care physician's office. -Return to work on 09/28/2022 Here are tips: Limit canned, dried, packaged, and fast foods. Don't add salt to your food at the table. Season foods with herbs instead of salt when you cook. When you eat out, ask that the loading machine operator helper not add any salt to your dish. Don't eat fried or greasy foods. Be careful of bottled beverages. They can contain a lot of salt -Call 911 right away if you have: -Severe shortness of breath, such that you can't catch your breath even while resting -Severe chest pain that does not resolve with rest or nitroglycerin -Rafael Gonzalez, foamy mucus with cough and shortness of breath -An ongoing rapid or irregular heartbeat -Passing out or fainting -Stroke symptoms such as sudden numbness or weakness on one side of your face, arm, or leg or sudden confusion, trouble speaking or vision changes -Please call your primary care provider's office upon discharge to schedule a hospital follow up within 1 week. -For any concerning signs or symptoms please call 911 or proceed to the nearest emergency department Physical Exam Narrative General: Alert, oriented HEENT: Atraumatic, normocephalic Eyes: Anicteric, normal conjunctiva, extraocular movements grossly intact Neck: Supple Respiratory: No overt crackles or wheezes appreciated, normal respiratory effort Cardiovascular: Regular rate and rhythm GI: Soft, nontender, nondistended Extremities: Lower extremities with significant ankles and decrease swelling, trace to 1+ edema Musculoskeletal: Moving all extremities Neuro: No overt focal neurological deficits Skin: Right lower extremity remains wrapped Psych: Cooperative Weight / BMI Weight Weight: 67.5 kg Body Mass Index (BMI) 27.2 ABG / Lab / Microbiology Data Result Diagrams: 09/25/22 05:46 09/25/22 05:46 Laboratory: Laboratory Results - last 24 hr 09/25/22 05:46: WBC 8.8, RBC 2.99 L, Hgb 8.4 L, Hct 27.4 L, MCV 91.6, MCH 28.1, MCHC 30.7 L, RDW Std Deviation 55.3 H, RDW Coeff of Jaciel 16.8 H, Plt Count 289, MPV 9.2, Immature Gran % (Auto) 0.300, Neut % (Auto) 71.5 H, Lymph % (Auto) 14.3 L, Appling % (Auto) 10.0, Eos % (Auto) 3.6, Baso % (Auto) 0.3, Absolute Neuts (auto) 6.3, Absolute Lymphs (auto) 1.26, Nucleated RBC % 0 09/25/22 05:46: Sodium 139, Potassium 3.6, Chloride 105, Carbon Dioxide 31.0, Anion Gap 3 L, BUN 14, Creatinine 0.77, Estim Creat Clear Calc 46.26, Est GFR (MDRD) Af Amer 126, Est GFR (MDRD) Non-Af 104, BUN/Creatinine Ratio 18.3, Glucose 114 H, Calcium 8.2 L Microbiology: Microbiology 09/23/22 11:35 Mucosa - Nasopharyngeal Respiratory Panel (PCR) - Final 09/23/22 12:10 Nasal Secretion SARS-CoV-2 & FLU Antigen (Rapid) - Final D/C Instructions Discharge Diet: - (DASH diet, 3000 mg sodium restriction, 2 L fluid restriction) Return to work on: 09/28/22 Meaningful Use Info Meaningful Use Diagnoses (Choose all that apply): CHF CHF VICKY/ARB ordered at discharge?: No Reason VICKY/ARB not ordered?: Moderate aortic stenosis Documented LVEF (%): 55 Discharge Plan Admission Admit Date/Time: 09/23/22 10:24 Primary Reason for Your Visit: Let him Attending Provider: Aisha Vega Primary Care Provider: Gloria Hazel Instructions Patient Instructions: Heart Failure Dc Additional Instructions / Restrictions: DISCHARGE INSTRUCTIONS PLEASE READ *Please take this with you to your next doctors appointment* -You were here with fluid overload and required IV Lasix. -Please resume 40 mg of Lasix in the morning as well as limit your sodium intake to less than 3 g/day and fluids to 2 L a day as much as possible. This combination now that you have been diuresed (given lasix through the IV with adequate water urinated out) will help keep you at your current weight/fluid status. -On the day of discharge you are 148.8 pounds by our scale. Would recommend you weigh yourself tomorrow morning and write down this weight and use this as your current baseline weight. Weigh yourself every day. A sudden weight gain can mean you are retaining fluid. Weigh yourself at the same time of day and in the same kind of clothes. Ideally, weigh yourself first thing in the morning after you empty your bladder, but before you eat breakfast. -Please call your physician if your weight goes up by more than 2 pounds in 1 day or 5 pounds in 1 week. This can be a sign that you are retaining more fluid than you should be. Clues to weight gain include checking your ankles for swelling, or noticing you are short of breath when you lie down -Strongly advise to wear compression stockings as we discussed -Please follow-up with your cardiology office upon discharge, please call Monday to schedule hospital follow-up appointment for your fluid overload and somewhat tight aortic valve which may just need to be monitored with routine echocardiograms of your heart -It is advised against taking cyclobenzaprine with history of fluid overload, would advise discontinuing this -Continue your other home medications as previously prescribed -You have a soft tissue density on your right shoulder, this can be further monitored on an outpatient basis. -You have a slight widening of your thoracic aorta but can be monitored routinely on an outpatient basis through primary care physician's office. -Return to work on 09/28/2022 Here are tips: Limit canned, dried, packaged, and fast foods. Don't add salt to your food at the table. Season foods with herbs instead of salt when you cook. When you eat out, ask that the loading machine operator helper not add any salt to your dish. Don't eat fried or greasy foods. Be careful of bottled beverages. They can contain a lot of salt -Call 911 right away if you have: -Severe shortness of breath, such that you can't catch your breath even while resting -Severe chest pain that does not resolve with rest or nitroglycerin -Rafael Gonzalez, foamy mucus with cough and shortness of breath -An ongoing rapid or irregular heartbeat -Passing out or fainting -Stroke symptoms such as sudden numbness or weakness on one side of your face, arm, or leg or sudden confusion, trouble speaking or vision changes -Please call your primary care provider's office upon discharge to schedule a hospital follow up within 1 week. -For any concerning signs or symptoms please call 911 or proceed to the nearest emergency department Discharge Orders/Prescriptions Prescriptions: Continued folic acid 1 mg tablet 2 mg PO DAILY (DME) Blood pressue cuff See Rx Instructions .Route .MEDSUPPLY Qty: 1 0RF Rx Instructions: As directed mirtazapine 15 mg tablet 15 mg PO QHS multivitamin [Daily Multi-Vitamin] Tablet 1 tab PO DAILY finasteride 1 mg tablet 5 mg PO DAILY prednisone 5 mg tablet 10 mg PO PRN PRN (Reason: Spasms) miscellaneous medical supply [facility] [place] 1 ea miscellaneous DIRECTED Qty: 1 0RF Rx Instructions: handicap placshazia, for life. aspirin 81 mg tablet,delayed release (DR/EC) 81 mg PO DAILY Qty: 1 0RF polysaccharide iron complex [Ferrex 150] 150 mg iron capsule 150 mg PO DAILY 90 Days Qty: 90 0RF tamsulosin 0.4 MG capsule 0.4 mg PO DAILY@1800 trazodone 100 MG tablet 150 mg PO QHS vitamin [id number] acid 2,500-400 mcg tablet,disintegrating 1 tab PO DAILY tramadol 50 mg Tablet 50 mg PO TID PRN (Reason: Pain) gabapentin 100 mg Tablet 300 mg PO DAILY Simponi ARIA 12.5 mg/mL Solution IV furosemide [Lasix] 40 mg Tablet 40 mg PO DAILY buprenorphine 10 mcg/hour Patch Weekly 1 patch TRANSDERMAL QWEEK Rx Instructions: change on Xarelto 20 mg tablet 20 mg PO DAILY Rx Instructions: must administer with evening meal atorvastatin [Lipitor] 40 mg tablet 40 mg PO QHS Qty: 90 3RF amiodarone 200 mg tablet 200 mg PO DAILY Qty: 90 3RF Discontinued cyclobenzaprine 10 mg Tablet 10 mg PO DAILY PRN (Reason: muscle spasms) Referrals / Follow Up: Gloria Hazel MD [Primary Care Provider] - Within 1 Week Salvatore Leonardo NP, [facility] [Med Staff - Adv Practice Prof] - See Referral Note (Please follow-up with your cardiology office upon discharge, please call Monday to schedule hospital follow-up appointment.) Disposition Disposition (needs filled in before D/C Order can be placed): Home, Self Care Charges/Coding Visit Charges Inpatient E&M: 42287 Disch Hosp >30min
[2022-09-25 14:37] VITALS: BP 128/64; PULSE 74; RESP 15; TEMP 36.8; O2SAT 93
== END 2022-09-25 16:13 | disposition home or self-care (01) | DRG 282 ==
LOC: ED 09:54 → PCU 10:49
PROVIDERS: Admitting Provider Internal Medicine; Emergency Provider Emergency Medicine; PCP Family Medicine; Visit Provider Internal Medicine
DX: I50.33 Acute on chronic diastolic (congestive) heart failure (principal); I21.A1 Myocardial infarction type 2; Z79.01 Long term (current) use of anticoagulants; I48.0 Paroxysmal atrial fibrillation; M06.9 Rheumatoid arthritis, unspecified; I25.10 Atherosclerotic heart disease of native coronary artery without angina pectoris; K21.9 Gastro-esophageal reflux disease without esophagitis; I08.0 Rheumatic disorders of both mitral and aortic valves; I89.0 Lymphedema, not elsewhere classified; G89.29 Other chronic pain; R09.02 Hypoxemia; N40.0 Benign prostatic hyperplasia without lower urinary tract symptoms; Z79.82 Long term (current) use of aspirin; Z79.899 Other long term (current) drug therapy; Z87.891 Personal history of nicotine dependence; Z95.5 Presence of coronary angioplasty implant and graft
CPT/HCPCS: 36415; 36600; 71046; 71250; 73030; 80048; 80053; 82274; 82803; 83615; 83880; 84443; 84484; 85025; 85652; 87428; 87633; 93005; 93306; 94668; 99252; 99285; J7050; A4216; G0463; J1602; J1940

== ENCOUNTER → 2022-10-11 | Outpatient (CLI) | payer MEDICARE, SELFPAY ==
--- NOTE | 2022-10-11 15:50 | RAD_ITS ---
STUDY: X-RAY CHEST REASON FOR EXAM: Male, 81 years old. Edema, pericardial effusion, Shortness of breath TECHNIQUE: Frontal and lateral views of the chest. COMPARISON: 09/23/2022. FINDINGS: The lungs are hyperexpanded. There are coarsened interstitial markings suggestive of mild chronic fibrosis. No gross focal infiltrates. No gross effusions. There is mild cardiac enlargement. Normal mediastinum and conrad. Normal visualized pulmonary arteries. Normal visualized aortic arch and descending thoracic aorta. There are diffuse degenerative changes of the visualized thoracic spine. Stable midthoracic compression fracture. There is degenerative osteoarthritis of the bilateral shoulders. There is no demonstrated abnormality of the visualized soft tissue structures of the upper abdomen. RAD/Chest PA and Lateral IMPRESSION: No change. Chronic pulmonary disease. No acute abnormality. Electronically Signed: Paul Sharma MD at 22:02 EDT ,
[2022-10-11 16:44] LABS: BNP,B-Type NATRIURETIC PEPTIDE 301.8 pg/mL (0-100)
[2022-10-11 16:53] LABS: Anion Gap 6 (5-15); BUN 19 mg/dL (7-18); BUN/Creat Ratio 16.7 RATIO (10-20); Calcium,Total 8.5 mg/dL (8.5-10.1); Chloride 102 mmol/L (98-107); Creatinine, Serum 1.14 mg/dL (0.70-1.30); EST Glomerular Filtration Rate 66 mL/min (>60); Est Glom Filt Rate - Afr Amer 80 mL/min (>60); Glucose 118 mg/dL (74-106); Sodium Level 140 mmol/L (136-145)
== END | disposition home or self-care (01) ==
PROVIDERS: PCP Family Medicine; Referring Provider Nurse Practitioner Gerontology; Visit Provider Nurse Practitioner Gerontology
DX: R06.02 Shortness of breath (principal); I48.0 Paroxysmal atrial fibrillation; I31.39 Other pericardial effusion (noninflammatory); R60.0 Localized edema; I35.0 Nonrheumatic aortic (valve) stenosis; I51.89 Other ill-defined heart diseases; Z79.899 Other long term (current) drug therapy
CPT/HCPCS: 36415; 71046; 80048; 83880

== ENCOUNTER → 2022-10-14 | Outpatient (CLI) | payer MEDICARE, SELFPAY ==
[2022-10-14 18:09] LABS: Absolute Lymphocyte Count 1.06 X10^3/uL (0.83-4.51); Basophil# 0.01 X10^3/uL; Basophil% 0.2 % (0-1); Eosinophil# 0.02 X10^3/uL; Eosinophils% 0.3 % (0-5); Hematocrit 25.7 % (40-54); Hemoglobin 7.5 g/dL (13.0-16.5); Lymphocyte # 1.06 X10^3/ul (0.83-4.51); Lymphocyte % 16.8 % (19-41); Mean Corp Hgb Conc 29.2 g/dL (32-36); Mean Corpuscular Hgb 26.1 pg (27.0-32.0); Mean Corpuscular Volume 89.5 fL (80-94); Mean Platelet Vol. 9.9 fl (6.2-12.0); Monocyte% 3.2 % (0-10); NRBC Flagged by Analyzer 0 % (0-5); Neutrophil # 4.98 X10^3/uL (2.7-7.7); Platelet Count 265 K/mm3 (150-450); RBC Distribution Width CV 16.7 % (11.6-14.6); RBC Distribution Width SD 53.6 fl (35.1-43.9); Red Blood Count 2.87 M/mm3 (4.6-6.2); White Blood Count 6.3 K/mm3 (4.4-11.0)
[2022-10-14 18:34] LABS: AST(SGOT) 27 U/L (15-37); Alanine Aminotransfer ALT/SGPT 24 U/L (16-61); Albumin, Serum 3.2 g/dL (3.2-5.0); Alkaline Phosphatase 105 U/L (45-117); Anion Gap 5 (5-15); BUN 21 mg/dL (7-18); BUN/Creat Ratio 17.9 RATIO (10-20); Calcium,Total 8.1 mg/dL (8.5-10.1); Chloride 102 mmol/L (98-107); Creatinine, Serum 1.17 mg/dL (0.70-1.30); EST Glomerular Filtration Rate 64 mL/min (>60); Est Glom Filt Rate - Afr Amer 77 mL/min (>60); Globulin 3.3 g/dL (2.2-4.2); Glucose 120 mg/dL (74-106); Potassium 3.9 mmol/L (3.5-5.1); Protein, Total 6.5 g/dL (6.4-8.2); Sodium Level 139 mmol/L (136-145)
== END | disposition home or self-care (01) ==
LOC: MTLAB 16:52
PROVIDERS: PCP Family Medicine; Referring Provider Internal Medicine Rheumatology; Visit Provider Internal Medicine Rheumatology
DX: M05.79 Rheumatoid arthritis with rheumatoid factor of multiple sites without organ or systems involvement (principal); Z79.899 Other long term (current) drug therapy
CPT/HCPCS: 36415; 80053; 85025

== ENCOUNTER → 2022-10-19 | Outpatient (CLI) | payer MEDICARE, SELFPAY ==
[2022-10-19 11:43] LABS: Absolute Lymphocyte Count 0.43 X10^3/uL (0.83-4.51); Absolute Neutrophil Count 4.5 X10^3/uL (2.0-7.7); Basophil# 0.02 X10^3/uL; Basophil% 0.4 % (0-1); Eosinophil# 0.12 X10^3/uL; Eosinophils% 2.2 % (0-5); Hematocrit 26.9 % (40-54); Hemoglobin 7.9 g/dL (13.0-16.5); Lymphocyte # 0.43 X10^3/ul (0.83-4.51); Mean Corp Hgb Conc 29.4 g/dL (32-36); Mean Corpuscular Hgb 26.3 pg (27.0-32.0); Mean Corpuscular Volume 89.7 fL (80-94); Mean Platelet Vol. 9.8 fl (6.2-12.0); Monocyte% 5.6 % (0-10); NRBC Flagged by Analyzer 0 % (0-5); Neutrophil # 4.48 X10^3/uL (2.7-7.7); Neutrophil % 83.4 % (47-70); POSITIVE DIFFERENTIAL YES; Platelet Count 253 K/mm3 (150-450); RBC Distribution Width CV 16.9 % (11.6-14.6); RBC Distribution Width SD 54.2 fl (35.1-43.9); White Blood Count 5.4 K/mm3 (4.4-11.0)
[2022-10-19 11:55] LABS: Differential Indicated SCAN CRITERIA MET
[2022-10-19 12:07] LABS: Anisocytosis 2+; Hypochromasia 1+; Schistocytes 1+
[2022-10-19 12:08] LABS: Ovalocyte RARE
[2022-10-19 12:19] LABS: ALB/GLOB Ratio 0.9 RATIO (0.9-2.4); AST(SGOT) 23 U/L (15-37); Alanine Aminotransfer ALT/SGPT 19 U/L (16-61); Albumin, Serum 3.1 g/dL (3.2-5.0); Alkaline Phosphatase 101 U/L (45-117); Anion Gap 5 (5-15); BUN 15 mg/dL (7-18); BUN/Creat Ratio 16.8 RATIO (10-20); Calcium,Total 8.4 mg/dL (8.5-10.1); Chloride 102 mmol/L (98-107); EST Glomerular Filtration Rate 87 mL/min (>60); Est Glom Filt Rate - Afr Amer 105 mL/min (>60); Ferritin 71 ng/mL (26-388); Globulin 3.5 g/dL (2.2-4.2); Glucose 108 mg/dL (74-106); Iron 18 ug/dL (65-175); Iron Binding Capacity,Total 351 ug/dL (250-450); LDH 279 U/L (87-241); PERCENT IRON SATURATION 5.1 % (15.0-55.0); Potassium 3.8 mmol/L (3.5-5.1); Protein, Total 6.6 g/dL (6.4-8.2); Sodium Level 138 mmol/L (136-145)
[2022-10-19 19:10] LABS: Xtra Tube EP Lab EXTRA TUBE
== END | disposition home or self-care (01) ==
LOC: LAB 11:05
PROVIDERS: PCP Family Medicine; Referring Provider Nurse Practitioner Gerontology; Visit Provider Internal Medicine Medical Oncology
DX: D50.9 Iron deficiency anemia, unspecified (principal); R06.02 Shortness of breath; I31.39 Other pericardial effusion (noninflammatory)
CPT/HCPCS: 36415; 80053; 82728; 83540; 83550; 83615; 85025

== ENCOUNTER 2022-10-20 11:17 | Inpatient (IN) | payer MEDICARE, SELFPAY ==
[2022-10-20 11:17] VITALS: BP 124/62; PULSE 62; RESP 14; TEMP 36.3; O2SAT 100; BMI 28.3
--- NOTE | 2022-10-20 11:38 | EKG12_ITS ---
Test Reason : Blood Pressure : / mmHG Vent. Rate : 061 BPM Atrial Rate : 061 BPM P-R Int : 214 ms QRS Dur : 094 ms QT Int : 474 ms P-R-T Axes : 076 -22 060 degrees QTc Int : 477 ms Sinus rhythm with 1st degree A-V block Anterior infarct , age undetermined Abnormal ECG Confirmed by AMOR PERALES, PER ([id number]), visual effects editor DEMARCUS CAMARENA ([id number]) on 10/21/2022 1:24:02 PM Referred By: MARY Confirmed By:PER CHINCHILLA MD
--- NOTE | 2022-10-20 11:46 | EDS_ITS ---
HPI <MARTIN Joy - Last Filed: 10/20/22 14:04> History of Present Illness Chief Complaint: GI Bleed Narrative Narrative: Patient is a 81-year-old male with history of CAD, hyperlipidemia, heart murmur, GI bleed who sees Dr. Saul. Patient was sent over by Dr. Saul's office today secondary to worsening anemia. Patient's last CBC showed a hemoglobin of 7.9. I received a call from Dr. Saul's nurse practitioner states that the patient needs admitted for blood as well as for EGD, colonoscopy tomorrow. Patient states that over the last 3 to 4 days he has been more tired, more shortness of breath on exertion. Patient also has history of congestive heart failure, states that his legs are starting to swell up again. He denies any chest pain or shortness of breath at rest. He denies any recent falls. Patient is currently on Xarelto. Patient states he does have some dark stools however he also is taking iron. [facility]LY [facility], [facility] <MARTIN Joy - Last Filed: 10/20/22 14:04> [facility], [facility] Medical History Abnormal echocardiogram Abnormal EKG Anemia Appetite loss Atherosclerotic heart disease of [place] coronary artery without angina pectoris Atrial fibrillation Atrial fibrillation with rapid ventricular response Back pain Cardiology follow-up encounter Coronary artery disease Debility Easy bruising Edema Elevated brain natriuretic peptide (BNP) level Elevated troponin Fever Fever Former smoker H/o finger stitches H/o three feet of intestines removed Hemorrhoids History of atrial fibrillation History of echocardiogram History of edema History of heart attack History of irregular heartbeat History of steroid therapy History of stress test Inflammatory arthritis Insomnia Left groin pain Left ventricular hypokinesis Left wrist pain Leg pain, bilateral Lumbar spinal stenosis Muscle spasm Osteoarthritis of left knee Paroxysmal atrial fibrillation PAT (paroxysmal atrial tachycardia) Rheumatoid arthritis Rheumatoid arthritis Right groin pain Right hip joint effusion Scrotal pain Shortness of breath on exertion SVT (supraventricular tachycardia) Syncope Wears glasses Home Medications tamsulosin 0.4 mg capsule 0.4 mg PO DAILY@1800 Retention 07/18/20 [History Last Taken 10/20/22] folic acid 1 mg tablet 2 mg PO DAILY 09/28/20 [History Last Taken 10/20/22] finasteride 1 mg tablet 5 mg PO DAILY 12/30/20 [History Last Taken 10/20/22] multivitamin (Daily Multi-Vitamin tablet) 1 tab PO DAILY Check with primary doctor 01/01/21 [History Last Taken 10/20/22] trazodone 100 mg tablet 150 mg PO QHS Check with primary doctor 05/09/21 [History Last Taken 10/19/22] amiodarone 200 mg tablet 200 mg PO DAILY heart rate #90 tabs 10/08/21 [Rx Last Taken 10/20/22] aspirin 81 mg tablet,delayed release 81 mg PO DAILY #1 TAB 01/10/22 [Rx Last Taken 10/20/22] mirtazapine 15 mg tablet 15 mg PO QHS 01/10/22 [History Last Taken 10/19/22] vitamin B12 2,500 mcg-folic acid 400 mcg disintegrating tablet 1 tab PO DAILY Check with primary doctor 01/10/22 [History Last Taken 10/19/22] golimumab 12.5 mg/mL intravenous solution (Simponi ARIA) 12.5 mg IV .[id number] 05/31/22 [History Last Taken Unknown] buprenorphine 10 mcg/hour weekly transdermal patch 1 patch transdermal QWEEK pain 09/20/22 [History Last Taken 10/14/22] polysaccharide iron complex 150 mg iron capsule (Ferrex) 150 mg PO DAILY 90 days #90 caps 09/21/22 [Rx Last Taken 10/20/22] rivaroxaban 20 mg tablet (Xarelto) 20 mg PO DAILY anticoagulation 09/23/22 [History Last Taken 10/19/22] atorvastatin 40 mg tablet (Lipitor) 40 mg PO QHS Cholesterol #90 tabs 10/07/22 [Rx Last Taken 10/19/22] furosemide 40 mg tablet (Lasix) 60 mg PO BID #270 tabs 10/12/22 [Rx Last Taken 10/20/22] gabapentin 300 mg capsule 300 mg PO TID PRN PRN NERVE PAIN 10/20/22 [History Last Taken 10/20/22] prednisone 10 mg tablet 10 mg PO DAILY 10/20/22 [History Last Taken 10/20/22] Allergy/AdvReac Type Severity Reaction Status Date / Time No Known Allergies Allergy Verified 10/20/22 11:19 Family History Father CVA (cerebral vascular accident) Brother CAD (coronary artery disease) CABG X 3 Mother CVA (cerebral vascular accident) Grandfather Cancer prostate Surgical History H/O colonoscopy H/O umbilical hernia repair History of cardiac catheterization History of coronary artery stent placement (08/06/20) History of coronary artery stent placement History of lumbar surgery Hx of colectomy Hx of laminectomy Hx of transurethral resection of prostate S/P appendectomy S/P cataract surgery S/P hemorrhoidectomy S/P inguinal hernia repair S/P laparoscopic cholecystectomy S/P left colectomy S/P rotator cuff repair S/P vasectomy Social History household members: none Smoking Status: Former smoker how long ago did patient quit smokin years ago alcohol intake: never substance use type: does not use diet: low salt caffeine: Yes Type: coffee Number of servings: 4 ROS <MARTIN Joy - Last Filed: 10/20/22 14:04> ROS ED ROS Narrative Constitutional: Negative for fever, chills, weight loss. Positive generalized weakness, weight gain Eyes: Negative for vision loss, vision change, double vision ENT: Negative for any sore throat, ear pain, congestion Cardiovascular: Negative for any chest pain, tightness, palpitations Respiratory: Negative for any cough, sputum production, hemoptysis, dyspnea, orthopnea. Positive dyspnea on exertion Gastrointestinal: Negative for any abdominal pain, nausea, vomiting, diarrhea, constipation, blood in stool, blood in vomit : Negative for any urinary frequency, dysuria, retention, blood in urine Muscle skeletal: Negative for any muscle joint pain, stiffness, myalgias, arthralgias, neck pain, back pain. Positive for lower leg swelling Neurological: Negative for any headache, syncope, numbness or tingling, dizziness Skin: Negative for any rashes, lumps, itching, abrasions, lacerations Psychiatric: Negative for any depression, anxiety, stress, suicidal ideation, homicidal ideation Hematologic: Negative for any easy bruising, excessive bruising, easy bleeding Allergies: Negative for any eczema, hives, rash EXAM <MARTIN Joy - Last Filed: 10/20/22 14:04> Physical Exam Narrative Exam Narrative: Vital signs reviewed. Patient is alert and orient x4. He is ambulatory. Does have a pale appearance. HEET: Head normocephalic atraumatic, TMs clear bilaterally. Posterior pharynx is clear, moist mucous membranes. Nares clear bilaterally. Neck: Supple with no lymphadenopathy or tenderness. No signs of meningismus, negative jolt sign. Cardiac: Regular rate and rhythm +4 systolic murmur no gallops or rubs, equal peripheral pulses bilaterally. Respiratory: Lungs clear to auscultation bilaterally. No chest tenderness. Abdomen: Soft, nontender, nondistended. No abdominal bruit or pulsatile masses. No hepatosplenomegaly Extremities: +2 lower leg edema, no signs of gross trauma or deformity. Active full range of motion of all extremities. Neuro: Cranial nerves II through XII intact, no focal neurological deficits. Skin: Clean dry and intact with no rash, purpura, petechiae, vesicles or pustules. Patient has a pale appearance Backs/flank: No CVA tenderness, no midline spinal tenderness, no deformity. Psych: Normal mood and affect. No SI, HI or acute psychosis. Rectal: Rectal exam showed no gross bleeding, no acute or chronic hemorrhoids. There is minimal pain in the rectal vault. Stool was dark in color however there is no maroon-colored stools, no bright red blood, Const Vital Signs: 10/20/22 11:17 Temperature 97.4 F L Temperature Source Temporal Pulse Rate 62 Respiratory Rate 14 Blood Pressure 124/62 H Blood Pressure Mean 82 Pulse Ox 100 Oxygen Delivery Method Room Air Positive well nourished and well developed General Appearance ED: well developed <Dr. Maninder Clark MD - Last Filed: 10/20/22 12:57> Physical Exam Const Vital Signs: 10/20/22 11:17 Temperature 97.4 F L Temperature Source Temporal Pulse Rate 62 Respiratory Rate 14 Blood Pressure 124/62 H Blood Pressure Mean 82 Pulse Ox 100 Oxygen Delivery Method Room Air MDM <MARTIN Joy - Last Filed: 10/20/22 14:04> [facility] Lab Data Labs: Laboratory Results - last 24 hr 10/20/22 10/20/22 10/20/22 11:55 11:55 11:55 WBC RBC Hgb Hct MCV MCH MCHC RDW Std Deviation RDW Coeff of Jaciel Plt Count MPV Immature Gran % (Auto) Neut % (Auto) Lymph % (Auto) Deuel % (Auto) Eos % (Auto) Baso % (Auto) Absolute Neuts (auto) Absolute Lymphs (auto) Nucleated RBC % Hypochromasia Anisocytosis Sodium 140 Potassium 3.5 Chloride 103 Carbon Dioxide 31.0 Anion Gap 6 BUN 15 Creatinine 0.99 Estim Creat Clear Calc 44.76 Est GFR (MDRD) Af Amer 93 Est GFR (MDRD) Non-Af 77 BUN/Creatinine Ratio 15.1 Glucose 111 H Calcium 8.2 L B-Natriuretic Peptide 334.6 H Blood Type O POSITIVE Antibody Screen NEGATIVE 10/20/22 12:54 WBC 5.3 RBC 2.82 L Hgb 7.6 L Hct 25.1 L MCV 89.0 MCH 27.0 MCHC 30.3 L RDW Std Deviation 53.2 H RDW Coeff of Jaciel 16.7 H Plt Count 232 MPV 9.7 Immature Gran % (Auto) 0.200 Neut % (Auto) 85.4 H Lymph % (Auto) 7.2 L Deuel % (Auto) 5.5 Eos % (Auto) 1.3 Baso % (Auto) 0.4 Absolute Neuts (auto) 4.5 Absolute Lymphs (auto) 0.38 L Nucleated RBC % 0 Hypochromasia 1+ Anisocytosis 1+ Sodium Potassium Chloride Carbon Dioxide Anion Gap BUN Creatinine Estim Creat Clear Calc Est GFR (MDRD) Af Amer Est GFR (MDRD) Non-Af BUN/Creatinine Ratio Glucose Calcium B-Natriuretic Peptide Blood Type Antibody Screen Radiography Diagnostic Testing: Clinical Impression(s) from Imaging Studies Chest X-Ray 10/20/22 12:08 IMPRESSION: Small left pleural effusion possible residual hemothorax secondary to recent rib fractures. Chronic wedge compression T7. Residual left upper lobe groundglass opacity and/or infiltrates. Electronically Signed: Fidelia Edge MD at 12:25 EDT , EKG Sinus rhythm, first-degree AV block: Interpretation: Sinus Rhythm Comments: Sinus rhythm with first-degree AV block, rate of 61 bpm, CT interval 214 ms, QRS duration 94 ms. Treatment and Re-Evaluation Comments:: Seen and evaluated independently and in conjunction with nurse practitioner. Agree with notes above unless documented otherwise. Patient 1 week of melanotic stools no bright red blood per rectum or hematemesis, dyspnea exertion, malaise and weakness. No syncope or angina. Sent here after blood counts and GI outpatient showed anemia Patient well-appearing in no distress benign abdomen, rectal shows dark stools no gross bleeding, Hemoccult positive. We will type and cross for 1 unit and plan for admission. Is generally well, patient's vital signs are stable. Patient presents the emergency department for low hemoglobin, concern for rectal bleeding. Patient is also having increased swelling to his lower extremities. Patient is more tired and more short of breath on exertion. Patient vital signs are stable. Patient laboratory values did show anemia with a hemoglobin of 7.6, hematocrit 25.1. He will be typed and crossed for 1 unit. Patient's chemistries were unremarkable. Patient's proBNP was 334.6, this is slightly elevated from earlier this month. Patient's chest x-ray did show some fluid overload with pleural effusion to the left. Patient's rectal exam did not show gross blood, no maroon stools however was dark in color and was positive for microscopic blood. Secondary to this finding, the patient's anemia, patient will need to be admitted to the hospital. Dr. Saul is aware the patient is here and will see him for scopes tomorrow. He is currently on Xarelto, I did speak with Dr. Scott who is a hospitalist, he would admit the patient to PCU. Patient be diagnosed with GI bleed, anemia, lower leg edema, fluid overload. Patient is happy with the plan of care, patient stable for discharge. <Dr. Maninder Clark MD - Last Filed: 10/20/22 12:57> [facility] Lab Data Attestation: I reviewed the patient's lab results. Labs: Laboratory Results - last 24 hr 10/20/22 10/20/22 10/20/22 11:55 11:55 11:55 WBC RBC Hgb Hct MCV MCH MCHC RDW Std Deviation RDW Coeff of Jaciel Plt Count MPV Immature Gran % (Auto) Neut % (Auto) Lymph % (Auto) Deuel % (Auto) Eos % (Auto) Baso % (Auto) Absolute Neuts (auto) Absolute Lymphs (auto) Nucleated RBC % Hypochromasia Anisocytosis Sodium 140 Potassium 3.5 Chloride 103 Carbon Dioxide 31.0 Anion Gap 6 BUN 15 Creatinine 0.99 Estim Creat Clear Calc 44.76 Est GFR (MDRD) Af Amer 93 Est GFR (MDRD) Non-Af 77 BUN/Creatinine Ratio 15.1 Glucose 111 H Calcium 8.2 L B-Natriuretic Peptide 334.6 H Blood Type O POSITIVE Antibody Screen NEGATIVE 10/20/22 12:54 WBC 5.3 RBC 2.82 L Hgb 7.6 L Hct 25.1 L MCV 89.0 MCH 27.0 MCHC 30.3 L RDW Std Deviation 53.2 H RDW Coeff of Jaciel 16.7 H Plt Count 232 MPV 9.7 Immature Gran % (Auto) 0.200 Neut % (Auto) 85.4 H Lymph % (Auto) 7.2 L Deuel % (Auto) 5.5 Eos % (Auto) 1.3 Baso % (Auto) 0.4 Absolute Neuts (auto) 4.5 Absolute Lymphs (auto) 0.38 L Nucleated RBC % 0 Hypochromasia 1+ Anisocytosis 1+ Sodium Potassium Chloride Carbon Dioxide Anion Gap BUN Creatinine Estim Creat Clear Calc Est GFR (MDRD) Af Amer Est GFR (MDRD) Non-Af BUN/Creatinine Ratio Glucose Calcium B-Natriuretic Peptide Blood Type Antibody Screen Radiography Diagnostic Testing: Clinical Impression(s) from Imaging Studies Chest X-Ray 10/20/22 12:08 IMPRESSION: Small left pleural effusion possible residual hemothorax secondary to recent rib fractures. Chronic wedge compression T7. Residual left upper lobe groundglass opacity and/or infiltrates. Electronically Signed: Fidelia Edge MD at 12:25 EDT , Management Discussion w/another healthcare provider: Hospitalist and [employer] ([facility]) Treatment and Re-Evaluation Comments:: Seen and evaluated independently and in conjunction with nurse practitioner. Agree with notes above unless documented otherwise. Patient 1 week of melanotic stools no bright red blood per rectum or hematemesis, dyspnea exertion, malaise and weakness. No syncope or angina. Sent here after blood counts and GI outpatient showed anemia Patient well-appearing in no distress benign abdomen, rectal shows dark stools no gross bleeding, Hemoccult positive. We will type and cross for 1 unit and plan for admission. <Dr. Maninder Clark MD - Last Filed: 10/20/22 12:57> Critical Care Time Critical Care Time: Yes Critical care time (excluding procedures): 30-74 minutes (35 min), Including time spent:, Discussing w/Patient &/or Family/Brain Picker, Discussing w/Consultants, Arranging Admission or Transfer and Performing Direct Patient Care at Bedside Discharge Plan Dx/Rx/DC Orders Clinical Impression: ABLA (acute blood loss anemia), Acute GI bleeding, Anticoagulated, Edema, Pleural effusion Disposition Disposition: Acute Care Hospital [facility]
--- NOTE | 2022-10-20 12:08 | RAD_ITS ---
STUDY: X-RAY CHEST REASON FOR EXAM: Male, 81 years old. Shortness of breath TECHNIQUE: PA and lateral views of the chest. COMPARISON: October 11, 2022 chest x-ray CT chest September 23, 2022 FINDINGS: There are subtle interstitial infiltrate suggested in the left upper lobe similar to prior study. As visualized blunting of the left costophrenic angle slightly greater than prior study. There is no demonstrated pleural abnormality. There is mild cardiac enlargement. Normal mediastinum and conrad. Normal visualized pulmonary arteries. Normal visualized aortic arch and descending thoracic aorta. Normal visualized thoracic spine. There is visualized minimally displaced fracture posterior left rib 6 and a healing fracture left rib 5. This is also seen on the prior study. There is near collapse of the T7 vertebral body. Also seen on prior CT September 23, 2022 There is no demonstrated abnormality of the visualized soft tissue structures of the upper abdomen. RAD/Chest PA and Lateral IMPRESSION: Small left pleural effusion possible residual hemothorax secondary to recent rib fractures. Chronic wedge compression T7. Residual left upper lobe groundglass opacity and/or infiltrates. Electronically Signed: Fidelia Edge MD at 12:25 EDT Reading Location ID and State: [facility] / [place] Tel , Service support ,
[2022-10-20 12:21] LABS: BNP,B-Type NATRIURETIC PEPTIDE 334.6 pg/mL (0-100)
[2022-10-20 12:50] LABS: Anion Gap 6 (5-15); BUN 15 mg/dL (7-18); BUN/Creat Ratio 15.1 RATIO (10-20); Calcium,Total 8.2 mg/dL (8.5-10.1); Chloride 103 mmol/L (98-107); Creatinine, Serum 0.99 mg/dL (0.70-1.30); EST Glomerular Filtration Rate 77 mL/min (>60); Est Glom Filt Rate - Afr Amer 93 mL/min (>60); Estimated Creatinine Clearance 44.76 ml/min; Glucose 111 mg/dL (74-106); Potassium 3.5 mmol/L (3.5-5.1); Sodium Level 140 mmol/L (136-145)
--- NOTE | 2022-10-20 13:15 | CM.ED ---
Social Work Referral Source: case find Referral Reason: Verify Advanced Directives SW met with patient and introduced herself and role as [facility] SW. Patient agreeable to speak with SW. SW inquired about AD documents, patient confirms they are completed and his daughter, Melanie, is HCPOA. SW encouraged patient to provide a copy to [facility] as those documents are not on file, patient voiced understanding. Dorita White [employer], BEN
[2022-10-20 13:17] LABS: Absolute Lymphocyte Count 0.38 X10^3/uL (0.83-4.51); Absolute Neutrophil Count 4.5 X10^3/uL (2.0-7.7); Basophil# 0.02 X10^3/uL; Basophil% 0.4 % (0-1); Eosinophil# 0.07 X10^3/uL; Eosinophils% 1.3 % (0-5); Hematocrit 25.1 % (40-54); Hemoglobin 7.6 g/dL (13.0-16.5); Lymphocyte # 0.38 X10^3/ul (0.83-4.51); Lymphocyte % 7.2 % (19-41); Mean Corp Hgb Conc 30.3 g/dL (32-36); Mean Platelet Vol. 9.7 fl (6.2-12.0); Monocyte# 0.29 X10^3/uL; Monocyte% 5.5 % (0-10); NRBC Flagged by Analyzer 0 % (0-5); Neutrophil % 85.4 % (47-70); POSITIVE DIFFERENTIAL YES; Platelet Count 232 K/mm3 (150-450); RBC Distribution Width CV 16.7 % (11.6-14.6); RBC Distribution Width SD 53.2 fl (35.1-43.9); Red Blood Count 2.82 M/mm3 (4.6-6.2); White Blood Count 5.3 K/mm3 (4.4-11.0)
[2022-10-20 13:19] LABS: Differential Indicated SCAN CRITERIA MET
[2022-10-20 13:40] LABS: Anisocytosis 1+; Hypochromasia 1+
[2022-10-20 14:18] VITALS: BP 137/65; PULSE 69; RESP 17; TEMP 36.4; O2SAT 98
[2022-10-20 14:59] VITALS: BP 123/68; PULSE 62; RESP 16; TEMP 36.6; O2SAT 100; BMI 28.8
--- NOTE | 2022-10-20 16:08 | HP.PCM.HOS_ITS ---
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 Patient was also in the hospital approximately a month ago for diastolic congestive heart failure with severe lower extremity edema, he underwent diuresis and improved greatly during his hospital stay. Patient has no complaints of any hematemesis or hematochezia. Evaluation in the emergency room included a CBC which showed a hemoglobin of 7.6, patient's white blood cell count was 5.3, patient's beta natruretic peptide was elevated at 334, glucose was 111. Patient's chest x-ray showed a small left pleural effusion, residual left upper lobe groundglass opacity and or infiltrates, and a chronic wedge compression at T7. Examination of the patient revealed severe edema of both legs, this edema did not resemble lymphedema. Patient will be admitted to PCU for acute on chronic anemia with possible upper GI bleed and anasarca. He will be placed on Lasix drip, he will be seen in consultation by gastroenterology and undergo an upper endoscopy. Patient will be placed on IV Protonix. I will repeat his H&H at 5 PM today, if his hemoglobin drops below 7 he will receive a blood transfusion. Patient is asymptomatic at this time with his anemia. I discussed his care with gastroenterology today. [facility] Medical History (Reviewed 10/20/22 @ 10:43 by Nelda Molina STATISTICAL CONSULTANT, STATISTICAL CONSULTANT-C) Abnormal echocardiogram Abnormal EKG Anemia Appetite loss Atherosclerotic heart disease of [place] coronary artery without angina pectoris Atrial fibrillation Atrial fibrillation with rapid ventricular response Back pain Cardiology follow-up encounter Coronary artery disease Debility Easy bruising Edema Elevated brain natriuretic peptide (BNP) level Elevated troponin Fever Fever Former smoker H/o finger stitches H/o three feet of intestines removed Hemorrhoids History of atrial fibrillation History of echocardiogram History of edema History of heart attack History of irregular heartbeat History of steroid therapy History of stress test Inflammatory arthritis Insomnia Left groin pain Left ventricular hypokinesis Left wrist pain Leg pain, bilateral Lumbar spinal stenosis Muscle spasm Osteoarthritis of left knee Paroxysmal atrial fibrillation PAT (paroxysmal atrial tachycardia) Rheumatoid arthritis Rheumatoid arthritis Right groin pain Right hip joint effusion Scrotal pain Shortness of breath on exertion SVT (supraventricular tachycardia) Syncope Wears glasses Home Medications tamsulosin 0.4 mg capsule 0.4 mg PO DAILY@1800 Retention 07/18/20 [History Last Taken 10/20/22] folic acid 1 mg tablet 2 mg PO DAILY 09/28/20 [History Last Taken 10/20/22] finasteride 1 mg tablet 5 mg PO DAILY 12/30/20 [History Last Taken 10/20/22] multivitamin (Daily Multi-Vitamin tablet) 1 tab PO DAILY Check with primary doctor 01/01/21 [History Last Taken 10/20/22] trazodone 100 mg tablet 150 mg PO QHS Check with primary doctor 05/09/21 [History Last Taken 10/19/22] amiodarone 200 mg tablet 200 mg PO DAILY heart rate #90 tabs 10/08/21 [Rx Last Taken 10/20/22] aspirin 81 mg tablet,delayed release 81 mg PO DAILY #1 TAB 01/10/22 [Rx Last Taken 10/20/22] mirtazapine 15 mg tablet 15 mg PO QHS 01/10/22 [History Last Taken 10/19/22] vitamin B12 2,500 mcg-folic acid 400 mcg disintegrating tablet 1 tab PO DAILY Check with primary doctor 01/10/22 [History Last Taken 10/19/22] golimumab 12.5 mg/mL intravenous solution (Simponi ARIA) 12.5 mg IV .[id number] 05/31/22 [History Last Taken Unknown] buprenorphine 10 mcg/hour weekly transdermal patch 1 patch transdermal QWEEK teja n 09/20/22 [History Last Taken 10/14/22] polysaccharide iron complex 150 mg iron capsule (Ferrex) 150 mg PO DAILY 90 days #90 caps 09/21/22 [Rx Last Taken 10/20/22] rivaroxaban 20 mg tablet (Xarelto) 20 mg PO DAILY anticoagulation 09/23/22 [History Last Taken 10/19/22] atorvastatin 40 mg tablet (Lipitor) 40 mg PO QHS Cholesterol #90 tabs 10/07/22 [Rx Last Taken 10/19/22] furosemide 40 mg tablet (Lasix) 60 mg PO BID #270 tabs 10/12/22 [Rx Last Taken 10/20/22] gabapentin 300 mg capsule 300 mg PO TID PRN PRN NERVE PAIN 10/20/22 [History Last Taken 10/20/22] prednisone 10 mg tablet 10 mg PO DAILY 10/20/22 [History Last Taken 10/20/22] Allergy/AdvReac Type Severity Reaction Status Date / Time No Known Allergies Allergy Verified 10/20/22 11:19 Family History (Reviewed 10/20/22 @ 10:43 by Nelda Molina STATISTICAL CONSULTANT, STATISTICAL CONSULTANT-C) Father CVA (cerebral vascular accident) Brother CAD (coronary artery disease) CABG X 3 Mother CVA (cerebral vascular accident) Grandfather Cancer prostate Surgical History (Reviewed 10/20/22 @ 10:43 by Nelda Molina STATISTICAL CONSULTANT, STATISTICAL CONSULTANT-C) H/O colonoscopy H/O umbilical hernia repair History of cardiac catheterization History of coronary artery stent placement (08/06/20) History of coronary artery stent placement History of lumbar surgery Hx of colectomy Hx of laminectomy Hx of transurethral resection of prostate S/P appendectomy S/P cataract surgery S/P hemorrhoidectomy S/P inguinal hernia repair S/P laparoscopic cholecystectomy S/P left colectomy S/P rotator cuff repair S/P vasectomy Social History (Reviewed 10/20/22 @ 10:43 by Nelda Molina STATISTICAL CONSULTANT, STATISTICAL CONSULTANT-C) household members: none Smoking Status: Former smoker how long ago did patient quit smokin years ago alcohol intake: never substance use type: does not use diet: low salt caffeine: Yes Type: coffee Number of servings: 4 ROS Constitutional Constitutional: Denies anorexia, change in weight, chills, fatigue, fever(s), night sweats or weakness Eyes Eyes: Denies blurry vision, change in vision, discharge from eye(s) or eye pain Cardiovascular Cardiovascular: Reports edema; Denies chest pain, claudication, dyspnea on exertion, lightheadedness or palpitations Respiratory/Chest Respiratory/Chest: Denies cough, dyspnea, hemoptysis, productive cough, shortness of breath at rest or shortness of breath with exertion Gastrointestinal Gastrointestinal: Reports other Details: Patient complains of dark stools ; Denies abdominal pain, coffee ground emesis, constipation, diarrhea, dyspepsia, hematemesis, hematochezia, melena, nausea or vomiting Genitourinary Genitourinary: Denies difficulty urinating, dysuria, hematuria, nocturia, urinary frequency, urinary hesitancy, urinary incontinence or urinary urgency Musculoskeletal Musculoskeletal: Denies back pain, joint pain, joint stiffness, joint swelling, myalgias or neck pain Neurologic Neurologic: Denies abnormal gait, abnormal speech, dizziness, focal weakness, headache(s), loss of vision, numbness, other visual disturbances, paresthesias, syncope or tingling Psychiatric Psychiatric: Denies anxiety, cognitive impairment, depression, irritability, mood swings or suicidal ideation Endocrine Endocrinology: Denies change in body appearance, cold intolerance, excessive sweating, heat intolerance, polydipsia or polyuria Hematologic/Lymphatic Hematologic/Lymphatic: Denies none, anemia, easy bleeding, easy bruising or lymphadenopathy Allergic/Immunologic Allergic/Immunologic: Denies rhinitis, urticaria, eczemia or asthma Vital Signs Vital Signs Vital Signs: 10/20/22 11:17 10/20/22 14:18 10/20/22 14:59 Temperature 97.4 F L 97.6 F L 97.9 F Temperature Source Temporal Oral Oral Pulse Rate 62 69 62 Respiratory Rate 14 17 16 Blood Pressure 124/62 H 137/65 H 123/68 H Blood Pressure Mean 82 89 86 Blood Pressure Source Monitor Blood Pressure Position Semi-Fowlers Blood Pressure Location Left Arm Pulse Ox 100 98 100 Oxygen Delivery Method Room Air Room Air Room Air Weight Weight: 69.218 kg Body Mass Index (BMI) 28.8 Physical Exam Const alert, oriented x3, no apparent distress and average body habitus General Appearance: cooperative, well kempt and well developed Orientation / Consciousness: awake, oriented to person, oriented to place and oriented to time HEENT normocephalic, head/scalp atraumatic, hearing grossly normal bilaterally and moist oral mucous membranes Eyes PERRL, EOMs intact bilaterally and conjunctivae normal Neck supple, no JVD, thyroid normal and no carotid bruits General: trachea midline Resp normal respiratory effort, no retractions, no use of accessory muscles and clear to auscultation bilaterally Auscultation: Negative for rales, rhonchi or wheezes Cardio regular rate, regular rhythm, S1 normal heart sound, S2 normal heart sound, no murmurs, no rub and no gallops GI normal to inspection, nondistended, normoactive bowel sounds, soft to palpation, non-tender and non-distended Extremity Extremity Narrative: Patient has severe +4 mm edema from his lower thigh area down to his feet bilaterally Neuro oriented x3, CN's II-XII intact bilaterally, moves all extremities, no focal motor deficits and no sensory deficits noted Sensorium / Orientation: awake, alert, oriented to person, oriented to place and oriented to time Speech: speech normal Psych affect normal Results Lab / Micro Data Result Diagrams: 10/20/22 12:54 10/20/22 11:55 Labs: Laboratory Results - last 24 hr 10/20/22 11:55: Sodium 140, Potassium 3.5, Chloride 103, Carbon Dioxide 31.0, Anion Gap 6, BUN 15, Creatinine 0.99, Estim Creat Clear Calc 44.76, Est GFR (MDRD) Af Amer 93, Est GFR (MDRD) Non-Af 77, BUN/Creatinine Ratio 15.1, Glucose 111 H, Calcium 8.2 L 10/20/22 11:55: Blood Type O POSITIVE, Antibody Screen NEGATIVE 10/20/22 11:55: B-Natriuretic Peptide 334.6 H 10/20/22 12:54: WBC 5.3, RBC 2.82 L, Hgb 7.6 L, Hct 25.1 L, MCV 89.0, MCH 27.0, MCHC 30.3 L, RDW Std Deviation 53.2 H, RDW Coeff of Jaciel 16.7 H, Plt Count 232, MPV 9.7, Immature Gran % (Auto) 0.200, Neut % (Auto) 85.4 H, Lymph % (Auto) 7.2 L, [place] % (Auto) 5.5, Eos % (Auto) 1.3, Baso % (Auto) 0.4, Absolute Neuts (auto) 4.5, Absolute Lymphs (auto) 0.38 L, Nucleated RBC % 0, Hypochromasia 1+, Anisocytosis 1+ Micro: Microbiology 10/20/22 12:05 Stool Stool Occult Blood (ALEYDA) - Final Occult Blood Positive Radiology Impression Chest X-Ray 10/20/22 12:08 IMPRESSION: Small left pleural effusion possible residual hemothorax secondary to recent rib fractures. Chronic wedge compression T7. Residual left upper lobe groundglass opacity and/or infiltrates. Electronically Signed: Fidelia Edge MD at 12:25 EDT , Assessment & Plan Assessment/Plan (1) Bilateral leg edema: PLAN: Plan 1. Acute on chronic iron deficiency anemia-patient will be admitted to PCU, he will be n.p.o. in case he can undergo an endoscopy today, if not he will undergo the endoscopy tomorrow. Patient's H&H will be rechecked at 5 PM today, if it drops below 7 he will be transfused 2 units of packed red blood cells, CBC will be repeated in the morning, patient is on IV Protonix. I will also administer IV Venofer to the patient. #2 anasarca-exact etiology unclear, I suspect he has a component of chronic diastolic congestive heart failure, patient will be placed on IV Lasix, Eber wrap will be applied to his legs. #3 paroxysmal atrial fibrillation-patient is currently on Xarelto, this will be held at this time due to concerns of bleeding #4 hypercoagulable state secondary to paroxysmal atrial fibrillation-patient's anticoagulation will have to be held due to concerns of bleeding. #5 coronary artery disease-patient had a stent placed approximately 2 years ago in his obtuse marginal branch. At that time, he had an LAD lesion of 100%, this was not able to be stented. Patient will need to stay off his aspirin at this time due to concerns of bleeding. He will remain on his atorvastatin. #6 BPH-patient is on Proscar and Flomax #7 possible rheumatoid arthritis-patient is on Simponi as an outpatient and also prednisone daily for 3 to 5 days as needed for flareup, I have elected to hold his prednisone at this time, it appears he does see a wirer maintenance. Total clinical time spent by myself addressing the patient's medical issues, reviewing all of his data, and collaborating with patient's care team: 75 minutes Charges/Coding Visit Charges Inpatient E&M: 77346 Init Hosp L3
--- NOTE | 2022-10-20 16:50 | CON.PCM.GI_ITS ---
HPI Consult Data Date of Consult: 10/20/22 HPI Narrative Reason for Consultation: Anemia / GI bleed HPI Narrative: BRYCE ANN, is a 81 M who presents with worsening shortness of breath after being seen in office. He has a diagnosis of CAD, non-STEMI, status post OM2 PCI(on Plavix), paroxysmal SVT/atrial fibrillation, and aortic valve stenosis. On August 10, 2020 he was admitted to [facility].? He was admitted for an acute non-STEMI.? He was on Eliquis and this was held for his heart catheterization on August 06, 2020.? He did undergo a heart catheterization and stenting to his OM 2.? They were unable to stent his LAD that was noted to have 100% occlusion. During that evaluation he was noted to be hypotensive and was noted to be in SVT.? He did not convert with 12 mg of adenosine.? He was transferred to the intensive care unit.? He did receive IV Cardizem.? He did convert back to sinus rhythm.? He was started on oral amiodarone. He was transferred to [facility] for evaluation of his LAD.? He was evaluated by cardiology and it was recommended that he undergo a Holter monitor to assess for conduction deficits.? It was not felt that he was a surgical candidate for single-vessel bypass due to his calcified LAD system.? He was discharged with medical management. He was also started on Eliquis. Later his Eliquis was switched to 4 Xarelto. He had a recent echocardiogram that showed an EF of 50% with mild TR, mild MR and pulmonary pressures were not calculated. I got to know him several months ago for acute GI bleed in which he underwent an upper and lower endoscopy. He was discovered to have multiple angiodysplastic lesions which were treated via endoscopy. He was seen in office and was determined to have a decreased hemoglobin from 11.5 down to 7.8. [facility] Medical History Abnormal echocardiogram Abnormal EKG Anemia Appetite loss Atherosclerotic heart disease of [place] coronary artery without angina pectoris Atrial fibrillation Atrial fibrillation with rapid ventricular response Back pain Cardiology follow-up encounter Coronary artery disease Debility Easy bruising Edema Elevated brain natriuretic peptide (BNP) level Elevated troponin Fever Fever Former smoker H/o finger stitches H/o three feet of intestines removed Hemorrhoids History of atrial fibrillation History of echocardiogram History of edema History of heart attack History of irregular heartbeat History of steroid therapy History of stress test Inflammatory arthritis Insomnia Left groin pain Left ventricular hypokinesis Left wrist pain Leg pain, bilateral Lumbar spinal stenosis Muscle spasm Osteoarthritis of left knee Paroxysmal atrial fibrillation PAT (paroxysmal atrial tachycardia) Rheumatoid arthritis Rheumatoid arthritis Right groin pain Right hip joint effusion Scrotal pain Shortness of breath on exertion SVT (supraventricular tachycardia) Syncope Wears glasses Home Medications tamsulosin 0.4 mg capsule 0.4 mg PO DAILY@1800 Retention 07/18/20 [History Last Taken 10/20/22] folic acid 1 mg tablet 2 mg PO DAILY 09/28/20 [History Last Taken 10/20/22] finasteride 1 mg tablet 5 mg PO DAILY 12/30/20 [History Last Taken 10/20/22] multivitamin (Daily Multi-Vitamin tablet) 1 tab PO DAILY Check with primary doctor 01/01/21 [History Last Taken 10/20/22] trazodone 100 mg tablet 150 mg PO QHS Check with primary doctor 05/09/21 [History Last Taken 10/19/22] amiodarone 200 mg tablet 200 mg PO DAILY heart rate #90 tabs 10/08/21 [Rx Last Taken 10/20/22] aspirin 81 mg tablet,delayed release 81 mg PO DAILY #1 TAB 01/10/22 [Rx Last Taken 10/20/22] mirtazapine 15 mg tablet 15 mg PO QHS 01/10/22 [History Last Taken 10/19/22] vitamin B12 2,500 mcg-folic acid 400 mcg disintegrating tablet 1 tab PO DAILY Check with primary doctor 01/10/22 [History Last Taken 10/19/22] golimumab 12.5 mg/mL intravenous solution (Simponi ARIA) 12.5 mg IV .[id number] 05/31/22 [History Last Taken Unknown] buprenorphine 10 mcg/hour weekly transdermal patch 1 patch transdermal QWEEK pain 09/20/22 [History Last Taken 10/14/22] polysaccharide iron complex 150 mg iron capsule (Ferrex) 150 mg PO DAILY 90 days #90 caps 09/21/22 [Rx Last Taken 10/20/22] rivaroxaban 20 mg tablet (Xarelto) 20 mg PO DAILY anticoagulation 09/23/22 [History Last Taken 10/19/22] atorvastatin 40 mg tablet (Lipitor) 40 mg PO QHS Cholesterol #90 tabs 10/07/22 [Rx Last Taken 10/19/22] furosemide 40 mg tablet (Lasix) 60 mg PO BID #270 tabs 10/12/22 [Rx Last Taken 10/20/22] gabapentin 300 mg capsule 300 mg PO TID PRN PRN NERVE PAIN 10/20/22 [History Last Taken 10/20/22] prednisone 10 mg tablet 10 mg PO DAILY 10/20/22 [History Last Taken 10/20/22] Allergy/AdvReac Type Severity Reaction Status Date / Time No Known Allergies Allergy Verified 10/20/22 11:19 Family History (Reviewed 10/20/22 @ 10:43 by Nelda Molina PINKED EDGE SEWING MACHINE OPERATOR, PINKED EDGE SEWING MACHINE OPERATOR-C) Father CVA (cerebral vascular accident) Brother CAD (coronary artery disease) CABG X 3 Mother CVA (cerebral vascular accident) Grandfather Cancer prostate Surgical History (Reviewed 10/20/22 @ 10:43 by Nelda Molina PINKED EDGE SEWING MACHINE OPERATOR, PINKED EDGE SEWING MACHINE OPERATOR-C) H/O colonoscopy H/O umbilical hernia repair History of cardiac catheterization History of coronary artery stent placement (08/06/20) History of coronary artery stent placement History of lumbar surgery Hx of colectomy Hx of laminectomy Hx of transurethral resection of prostate S/P appendectomy S/P cataract surgery S/P hemorrhoidectomy S/P inguinal hernia repair S/P laparoscopic cholecystectomy S/P left colectomy S/P rotator cuff repair S/P vasectomy Social History (Reviewed 10/20/22 @ 10:43 by Nelda Molina PINKED EDGE SEWING MACHINE OPERATOR, PINKED EDGE SEWING MACHINE OPERATOR-C) household members: none Smoking Status: Former smoker how long ago did patient quit smokin years ago alcohol intake: never substance use type: does not use diet: low salt caffeine: Yes Type: coffee Number of servings: 4 ROS Constitutional Constitutional: Denies anorexia, change in weight, chills, fatigue, fever(s), night sweats or weakness Eyes Eyes: Denies blurry vision, change in vision, discharge from eye(s) or eye pain Cardiovascular Cardiovascular: Reports edema; Denies chest pain, claudication, dyspnea on exertion, lightheadedness or palpitations Respiratory/Chest Respiratory/Chest: Denies cough, dyspnea, hemoptysis, productive cough, shortness of breath at rest or shortness of breath with exertion Gastrointestinal Gastrointestinal: Reports other Details: Patient complains of dark stools ; Denies abdominal pain, coffee ground emesis, constipation, diarrhea, dyspepsia, hematemesis, hematochezia, melena, nausea or vomiting Genitourinary Genitourinary: Denies difficulty urinating, dysuria, hematuria, nocturia, uri nary frequency, urinary hesitancy, urinary incontinence or urinary urgency Musculoskeletal Musculoskeletal: Denies back pain, joint pain, joint stiffness, joint swelling, myalgias or neck pain Neurologic Neurologic: Denies abnormal gait, abnormal speech, dizziness, focal weakness, headache(s), loss of vision, numbness, other visual disturbances, paresthesias, syncope or tingling Psychiatric Psychiatric: Denies anxiety, cognitive impairment, depression, irritability, mood swings or suicidal ideation Endocrine Endocrinology: Denies change in body appearance, cold intolerance, excessive sweating, heat intolerance, polydipsia or polyuria Hematologic/Lymphatic Hematologic/Lymphatic: Denies none, anemia, easy bleeding, easy bruising or lymphadenopathy Allergic/Immunologic Allergic/Immunologic: Denies rhinitis, urticaria, eczemia or asthma Physical Exam Const alert, oriented x3, no apparent distress and average body habitus General Appearance: cooperative, well kempt and well developed Orientation / Consciousness: awake, oriented to person, oriented to place and oriented to time HEENT normocephalic, head/scalp atraumatic, hearing grossly normal bilaterally and moist oral mucous membranes Eyes PERRL, EOMs intact bilaterally and conjunctivae normal Neck supple, no JVD, thyroid normal and no carotid bruits General: trachea midline Resp normal respiratory effort, no retractions, no use of accessory muscles and clear to auscultation bilaterally Auscultation: Negative for rales, rhonchi or wheezes Cardio regular rate, regular rhythm, S1 normal heart sound, S2 normal heart sound, no murmurs, no rub and no gallops GI normal to inspection, nondistended, normoactive bowel sounds, soft to palpation, non-tender and non-distended Extremity Extremity Narrative: Patient has severe +4 mm edema from his lower thigh area down to his feet bi laterally Neuro oriented x3, CN's II-XII intact bilaterally, moves all extremities, no focal motor deficits and no sensory deficits noted Sensorium / Orientation: awake, alert, oriented to person, oriented to place and oriented to time Speech: speech normal Psych affect normal Lab / Micro Data Result Diagrams: 10/20/22 12:54 10/20/22 11:55 Labs: Laboratory Results - last 24 hr 10/20/22 11:55: Sodium 140, Potassium 3.5, Chloride 103, Carbon Dioxide 31.0, Anion Gap 6, BUN 15, Creatinine 0.99, Estim Creat Clear Calc 44.76, Est GFR (MDRD) Af Amer 93, Est GFR (MDRD) Non-Af 77, BUN/Creatinine Ratio 15.1, Glucose 111 H, Calcium 8.2 L 10/20/22 11:55: Blood Type O POSITIVE, Antibody Screen NEGATIVE 10/20/22 11:55: B-Natriuretic Peptide 334.6 H 10/20/22 12:54: WBC 5.3, RBC 2.82 L, Hgb 7.6 L, Hct 25.1 L, MCV 89.0, MCH 27.0, MCHC 30.3 L, RDW Std Deviation 53.2 H, RDW Coeff of Jaciel 16.7 H, Plt Count 232, MPV 9.7, Immature Gran % (Auto) 0.200, Neut % (Auto) 85.4 H, Lymph % (Auto) 7.2 L, [place] % (Auto) 5.5, Eos % (Auto) 1.3, Baso % (Auto) 0.4, Absolute Neuts (auto) 4.5, Absolute Lymphs (auto) 0.38 L, Nucleated RBC % 0, Hypochromasia 1+, Anisocytosis 1+ Micro: Microbiology 10/20/22 12:05 Stool Stool Occult Blood (ALEYDA) - Final Occult Blood Positive Radiology Impression Chest X-Ray 10/20/22 12:08 IMPRESSION: Small left pleural effusion possible residual hemothorax secondary to recent rib fractures. Chronic wedge compression T7. Residual left upper lobe groundglass opacity and/or infiltrates. Electronically Signed: Fidelia Edge MD at 12:25 EDT , Assessment & Plan Assessment/Plan (1) Hypoxia: (2) Elevated troponin: (3) Elevated brain natriuretic peptide (BNP) level: (4) Acute GI bleeding: PLAN: Plan #Anemia -Patient will undergo an upper endoscopy with push enteroscopy to evaluate his upper GI tract. Recommend Protonix 40 mg IV every 12 hours he was explained alternatives, risk, benefits include not withstanding bleeding, infection, sepsis, perforation, need for emergent and . Have an ASA of 3. #Lower extremity edema -Last echo August 2022 with an EF of 55%, mild to moderate mitral valve insufficiency, RVSP of 35, stage II diastolic dysfunction -Does take Lasix 40 mg daily, will start IV dosing -I's and O's, daily weights #HFpEF -Grade II diastolic dysfunction on echo in 2022 -BNP 243 and appears peripherally overloaded -Repeat echo #Normocytic anemia -7.8in the ED, 7 days ago was11.7. - will continue iron supplementation #Hx cad with stent 08/06/2020 -PCI of OM2 with GAGE in 2020 but unsuccessful PCI of PRIVATE EYE of LAD -Has troponin of 138 however no chest pain -Hold aspirin #Chronic pain -Continue buprenorphine patch #pafib -Continue amiodarone -Hold Xarelto #RA -Pt reports he follows w/ rheum as outpt -Takes pred PRN, not presently taking Charges/Coding Visit Charges Inpatient E&M: 14889 Init Hosp L3
[2022-10-20] MEDS: Potassium Chloride Oral Tablet 20 MEQ 40 MEQ PO (16:54)
[2022-10-20] MEDS: Tamsulosin HCl 0.4 MG Capsule PO (16:55)
[2022-10-20 17:15] LABS: Hematocrit 24.6 % (40-54); Hemoglobin 7.3 g/dL (13.0-16.5)
[2022-10-20 21:37] VITALS: BP 102/54; PULSE 57; RESP 16; TEMP 36.6; O2SAT 99
[2022-10-20] MEDS: Atorvastatin Calcium 40 MG Tablet PO (21:38)
[2022-10-20] MEDS: Mirtazapine 15 MG Tablet PO (21:38)
[2022-10-20] MEDS: traZODone 100 MG Tablet 150 MG PO (21:39)
[2022-10-20] MEDS: Furosemide 20 MG/2 ML VIAL IV (21:39)
[2022-10-21] VITALS (22 sets, daily range): BP systolic 99–131; BP diastolic 49–67; PULSE 58–86; RESP 16–21; TEMP 36.6–37.5; O2SAT 85–100; BMI 28.8
[2022-10-21 03:40] LABS: Absolute Lymphocyte Count 1.35 X10^3/uL (0.83-4.51); Absolute Neutrophil Count 2.4 X10^3/uL (2.0-7.7); Basophil# 0.03 X10^3/uL; Basophil% 0.6 % (0-1); Eosinophil# 0.19 X10^3/uL; Eosinophils% 4.1 % (0-5); Hematocrit 23.1 % (40-54); Hemoglobin 7.1 g/dL (13.0-16.5); Lymphocyte # 1.35 X10^3/ul (0.83-4.51); Lymphocyte % 29.1 % (19-41); Mean Corp Hgb Conc 30.7 g/dL (32-36); Mean Corpuscular Volume 87.8 fL (80-94); Mean Platelet Vol. 9.7 fl (6.2-12.0); Monocyte# 0.62 X10^3/uL; Monocyte% 13.4 % (0-10); NRBC Flagged by Analyzer 0 % (0-5); Neutrophil # 2.44 X10^3/uL (2.7-7.7); Neutrophil % 52.6 % (47-70); Platelet Count 212 K/mm3 (150-450); RBC Distribution Width CV 16.8 % (11.6-14.6); RBC Distribution Width SD 51.5 fl (35.1-43.9); Red Blood Count 2.63 M/mm3 (4.6-6.2); White Blood Count 4.6 K/mm3 (4.4-11.0)
[2022-10-21 03:48] LABS: International Normalized Ratio 1.3; Prothrombin Time (Protime)PT. 16.6 SECONDS (11.7-14.9)
[2022-10-21 03:49] LABS: Partial Thromboplast Time 38.3 Seconds (24.1-36.2)
[2022-10-21 04:02] LABS: Albumin, Serum 2.7 g/dL (3.2-5.0); Anion Gap 6 (5-15); BUN 12 mg/dL (7-18); BUN/Creat Ratio 13.8 RATIO (10-20); Calcium,Total 8.1 mg/dL (8.5-10.1); Chloride 107 mmol/L (98-107); Creatinine, Serum 0.87 mg/dL (0.70-1.30); EST Glomerular Filtration Rate 90 mL/min (>60); Est Glom Filt Rate - Afr Amer 109 mL/min (>60); Estimated Creatinine Clearance 50.93 ml/min; Glucose 92 mg/dL (74-106); Potassium 3.5 mmol/L (3.5-5.1); Sodium Level 145 mmol/L (136-145)
--- NOTE | 2022-10-21 05:40 | NURSING ---
[facility].
[2022-10-21 06:15] LABS: Absolute Lymphocyte Count 1.56 X10^3/uL (0.83-4.51); Basophil# 0.03 X10^3/uL; Basophil% 0.5 % (0-1); Eosinophil# 0.22 X10^3/uL; Hematocrit 24.8 % (40-54); Hemoglobin 7.1 g/dL (13.0-16.5); Lymphocyte # 1.56 X10^3/ul (0.83-4.51); Lymphocyte % 28.2 % (19-41); Mean Corp Hgb Conc 28.6 g/dL (32-36); Mean Corpuscular Hgb 25.4 pg (27.0-32.0); Mean Corpuscular Volume 88.6 fL (80-94); Mean Platelet Vol. 9.5 fl (6.2-12.0); Monocyte# 0.73 X10^3/uL; Monocyte% 13.2 % (0-10); NRBC Flagged by Analyzer 0 % (0-5); Neutrophil # 2.99 X10^3/uL (2.7-7.7); Neutrophil % 53.9 % (47-70); Platelet Count 225 K/mm3 (150-450); RBC Distribution Width CV 16.9 % (11.6-14.6); RBC Distribution Width SD 53.1 fl (35.1-43.9); White Blood Count 5.5 K/mm3 (4.4-11.0)
--- NOTE | 2022-10-21 06:51 | OP.EGD_ITS ---
Patient Name: Justo Rodriguez Procedure Date: 10/21/2022 6:21 AM Date of : 1940 Age: 81 Procedure: Upper GI endoscopy Indications: Iron deficiency anemia Providers: Nikunj Saul DO Medicines: Monitored Anesthesia Care Patient Profile: This is a 81 year old male. Refer to note in patient chart for documentation of history and physical. Patient has symptoms of acute dyspepsia. Complications: No immediate complications. Procedure: Pre-Anesthesia Assessment: - Prior to the procedure, a History and Physical was performed, and patient medications and allergies were reviewed. The patient is competent. The risks and benefits of the procedure and the sedation options and risks were discussed with the patient. All questions were answered and informed consent was obtained. Patient identification and proposed procedure were verified by the physician in the pre-procedure area. Mental Status Examination: normal. Airway Examination: normal oropharyngeal airway and neck mobility. Respiratory Examination: clear to auscultation. CV Examination: normal. Prophylactic Antibiotics: The patient does not require prophylactic antibiotics. Prior Anticoagulants: The patient has taken no previous anticoagulant or antiplatelet agents. After reviewing the risks and benefits, the patient was deemed in satisfactory condition to undergo the procedure. The anesthesia plan was to use monitored anesthesia care (MAC). Immediately prior to administration of medications, the patient was re-assessed for adequacy to receive sedatives. The heart rate, respiratory rate, oxygen saturations, blood pressure, adequacy of pulmonary ventilation, and response to care were monitored throughout the procedure. The physical status of the patient was re-assessed after the procedure. After obtaining informed consent, the endoscope was passed under direct vision. Throughout the procedure, the patient's blood pressure, pulse, and oxygen saturations were monitored continuously. The gastroscope was introduced through the mouth, and advanced to the second part of duodenum. The upper GI endoscopy was accomplished without difficulty. The patient tolerated the procedure well. Scope In: 6:43:23 AM Scope Out: 6:46:02 AM Total Procedure Duration Time 0 hours 2 minutes 39 seconds Findings: The examined esophagus was normal. A small hiatal hernia was present. No other significant abnormalities were identified in a careful examination of the stomach. The second portion of the duodenum was normal. Impression: - Normal esophagus. - Small hiatal hernia. - Normal second portion of the duodenum. - No specimens collected. Recommendation: - Discharge patient to home. - Resume regular diet. - Continue present medications. Procedure Code(s): --- Professional --- 75784, Esophagogastroduodenoscopy, flexible, transoral; diagnostic, including collection of specimen(s) by brushing or washing, when performed (separate procedure) CPT copyright 2017 [employer]. All rights reserved. The codes documented in this report are preliminary and upon e commerce merchant review may be revised to meet current compliance requirements. Nikunj Saul DO 10/21/2022 6:50:28 AM This report has been signed electronically. Number of Addenda: 0 Note Initiated On: 10/21/2022 6:21 AM
--- NOTE | 2022-10-21 06:51 | OP.CCLET_ITS ---
10/21/2022 Gloria Hazel [address] [place] [address] Re : Upper GI endoscopy procedure for Justo Rodriguez Dear Dr. Hazel This procedure was performed on Friday, October 21, 2022. My impressions and recommendations are as follows: Impressions : - Normal esophagus. - Small hiatal hernia. - Normal second portion of the duodenum. - No specimens collected. Recommendations : - Discharge patient to home. - Resume regular diet. - Continue present medications. My findings are described in the full procedure note, which is enclosed. If I can be of further assistance, please feel free to contact me at . Sincerely, Nikunj Saul DO 10/21/2022 6:50:28 AM This report has been signed electronically.
[2022-10-21] MEDS: 0.9% Saline Lock 10 ML Syringe IV ×2 (08:58→13:39)
[2022-10-21] MEDS: Finasteride 5 MG Tablet PO (08:59)
[2022-10-21] MEDS: Amiodarone 200 MG Tablet PO (08:59)
[2022-10-21] MEDS: Folic Acid 1 MG Tablet 2 MG PO (08:59)
--- NOTE | 2022-10-21 10:39 | CASEMGMT ---
ELROY COLLAZO chart review: Patient was admitted 09/23-09/25/22 for hypoxia secondary to CHF. See ELROY COLLAZO assessment from 09/24/22. Patient was discharged to home with follow-up plans in place. Patient was seen at follow-up appt with Dr. Saul and sent from the office for worsening anemia. Hgb 7.9 patient to have 1 unit of PRBC. Patient had EGD that showed hiatal hernia. RN CM in to discuss needs at discharge. Patient states that he has followed up with PCP and GI. Patient has cardiology follow-up on 11/04. Patient has been taking medications as prescribed. Patient denied needs at discharge. ELROY COLLAZO updated patient to follow-up with PCP for further needs or concerns, patient voiced understanding.
--- NOTE | 2022-10-21 12:56 | DCINST_ITS ---
Discharge Instructions Diet Discharge Diet: No restrictions Activity Discharge Activity: Return to Normal Activity Weight Bearing Status: Full weight bearing Follow Up Care Test Results: Test results from this visit will be discussed in further detail at your follow- up appointment, if applicable. Discharge Plan Admission Admit Date/Time: 10/20/22 15:01 Primary Reason for Your Visit: acute on chronic iron deficiency anemia, hypoxia Attending Provider: Dajuan Ayers Primary Care Provider: Gloria Hazel Instructions Additional Instructions / Restrictions: It is recommended to use oxygen at two liters per min, at this time you have declined supplemental oxygen set up at home Discharge Orders/Prescriptions Prescriptions: New potassium chloride 10 mEq tablet extended release 20 meq PO DAILY Qty: 60 0RF Continued folic acid 1 mg tablet 2 mg PO DAILY mirtazapine 15 mg tablet 15 mg PO QHS multivitamin [Daily Multi-Vitamin] Tablet 1 tab PO DAILY finasteride 1 mg tablet 5 mg PO DAILY aspirin 81 mg tablet,delayed release (DR/EC) 81 mg PO DAILY Qty: 1 0RF tamsulosin 0.4 MG capsule 0.4 mg PO DAILY@1800 trazodone 100 MG tablet 150 mg PO QHS vitamin O87-uryvf acid 2,500-400 mcg tablet,disintegrating 1 tab PO DAILY Simponi ARIA 12.5 mg/mL Solution 12.5 mg IV .[id number] Label Comments: PT GOES TO GET INJECTION EVERY 8 WEEKS CAN NOT REMEMBER LAST SHOT NEXT DUE IS IN OCTOBER buprenorphine 10 mcg/hour Patch Weekly 1 patch TRANSDERMAL QWEEK Rx Instructions: change on gabapentin 300 mg capsule 300 mg PO TID PRN PRN (Reason: NERVE PAIN) Label Comments: Take 1 (one) Capsule by mouth three times daily, as needed prednisone 10 mg tablet 10 mg PO DAILY Qty: 1 0RF Rx Instructions: As instructed Xarelto 20 mg tablet 20 mg PO DAILY Qty: 1 0RF Rx Instructions: must administer with evening meal, start on 10/22/2022 amiodarone 200 mg tablet 200 mg PO DAILY Qty: 90 3RF atorvastatin [Lipitor] 40 mg tablet 40 mg PO QHS Qty: 90 3RF Changed furosemide [Lasix] 40 mg tablet 80 mg PO BID Qty: 270 3RF polysaccharide iron complex [Ferrex 150] 150 mg iron capsule 150 mg PO BID 90 Days Qty: 90 0RF Referrals / Follow Up: Gloria Hazel MD [Primary Care Provider] - Within 1 Week (you will need a repeat hemoglobin checked) Disposition Disposition (needs filled in before D/C Order can be placed): Home, Self Care
--- NOTE | 2022-10-21 13:32 | PCM.DC.SUM ---
Providers Date of Admission: 10/20/22 Date of Discharge: 10/22/22 Primary Care Physician: Dr. Gloria Hazel MD Consultations 10/20/22 15:19 Consult: Gastroenterology Routine Consulting Provider: [facility] Reason for Consult: anemia EMERGENT Consult: No MD Notified: Yes Date Notified: 10/20/22 Time Notified: 15:14 Method of Notification: Verbal Reason For Visit: GI BLEED, ANEMIA, PLEURAL EFFUSION Diagnosis Discharge Diagnosis (1) Hypoxia: Status: Resolved Code(s): R09.02 - Hypoxemia (2) Acute GI bleeding: Status: Acute Code(s): K92.2 - Gastrointestinal hemorrhage, unspecified Plan 1. Acute on chronic iron deficiency anemia-patient will be admitted to PCU, he will be n.p.o. in case he can undergo an endoscopy today, if not he will undergo the endoscopy tomorrow. Patient's H&H will be rechecked at 5 PM today, if it drops below 7 he will be transfused 2 units of packed red blood cells, CBC will be repeated in the morning, patient is on IV Protonix. I will also administer IV Venofer to the patient. #2 anasarca-exact etiology unclear, I suspect he has a component of chronic diastolic congestive heart failure, patient will be placed on IV Lasix, Eber wrap will be applied to his legs. #3 paroxysmal atrial fibrillation-patient is currently on Xarelto, this will be held at this time due to concerns of bleeding #4 hypercoagulable state secondary to paroxysmal atrial fibrillation-patient's anticoagulation will have to be held due to concerns of bleeding. #5 coronary artery disease-patient had a stent placed approximately 2 years ago in his obtuse marginal branch. At that time, he had an LAD lesion of 100%, this was not able to be stented. Patient will need to stay off his aspirin at this time due to concerns of bleeding. He will remain on his atorvastatin. #6 BPH-patient is on Proscar and Flomax #7 possible rheumatoid arthritis-patient is on Simponi as an outpatient and also prednisone daily for 3 to 5 days as needed for flareup, I have elected to hold his prednisone at this time, it appears he does see a marketing senior recruiter. #8 impacted food in the esophagus due to Schatzki's ring #9 hypoxia-etiology unclear #10 bilateral pulmonary infiltrates-etiology unclear #11 compression fracture of L2-etiology and timeframe unknown #12 chronic diastolic congestive heart failure Total clinical time spent by myself addressing the patient's medical issues, reviewing all of his data, and collaborating with patient's care team: 75 minutes Medications at Discharge Home Medications tamsulosin 0.4 mg capsule 0.4 mg PO DAILY@1800 Retention 07/18/20 folic acid 1 mg tablet 2 mg PO DAILY 09/28/20 finasteride 1 mg tablet 5 mg PO DAILY 12/30/20 multivitamin (Daily Multi-Vitamin tablet) 1 tab PO DAILY Check with primary doctor 01/01/21 trazodone 100 mg tablet 150 mg PO QHS Check with primary doctor 05/09/21 amiodarone 200 mg tablet 200 mg PO DAILY heart rate #90 tabs 10/08/21 aspirin 81 mg tablet,delayed release 81 mg PO DAILY #1 TAB 01/10/22 mirtazapine 15 mg tablet 15 mg PO QHS 01/10/22 vitamin B12 2,500 mcg-folic acid 400 mcg disintegrating tablet 1 tab PO DAILY Check with primary doctor 01/10/22 golimumab 12.5 mg/mL intravenous solution (Simponi ARIA) 12.5 mg IV .[id number] 05/31/22 buprenorphine 10 mcg/hour weekly transdermal patch 1 patch transdermal QWEEK pain 09/20/22 atorvastatin 40 mg tablet (Lipitor) 40 mg PO QHS Cholesterol #90 tabs 10/07/22 gabapentin 300 mg capsule 300 mg PO TID PRN PRN NERVE PAIN 10/20/22 furosemide 40 mg tablet (Lasix) 80 mg PO BID #270 tabs 10/21/22 polysaccharide iron complex 150 mg iron capsule (Ferrex) 150 mg PO BID 90 days #90 caps 10/21/22 potassium chloride 10 mEq tablet,extended release 20 meq PO DAILY #60 tabs 10/21/22 prednisone 10 mg tablet 10 mg PO DAILY #1 TAB 10/21/22 rivaroxaban 20 mg tablet (Xarelto) 20 mg PO DAILY anticoagulation #1 TAB 10/21/22 Hospital Course Operations None Procedures EGD Summary of Care Provided Minutes Spent on Discharge: 32 Hospital Course: 81-year-old white male was seen in the emergency room at [facility] 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 Patient was admitted to PCU, he was seen in consultation by gastroenterology who performed an EGD which showed no evidence of active bleeding. Patient was also placed on IV Lasix due to severe lower extremity edema which was chronic in nature. The etiology of this edema was not known but felt to possibly be secondary to chronic diastolic congestive heart failure. Patient was evaluated after his EGD, it appeared that he was stable for discharge home but he was noted to be hypoxic and also had some swallowing difficulties, I ordered a CT of the chest which showed an impacted food bolus in the esophagus, patient had to undergo another EGD and this food bolus was removed and a Schatzki's ring was dilated. The next day, the patient was reevaluated and found to be hypoxic on ambulation but he refused outpatient oxygen. On 10/22/2022, patient was seen and examined: On examination he appeared in good health and spirits. Vital signs as documented. Skin warm and dry and without overt rashes. Neck without JVD, neck was supple, trachea midline, thyroid was normal. Lungs clear bilaterally, normal air movement was noted. Heart exam notable for irregular rhythm, normal sounds and absence of murmurs, rubs or gallops. Abdomen unremarkable and without evidence of organomegaly, masses, or abdominal aortic enlargement. Bowel sounds are present, abdomen is not distended. Extremities-generalized lower extremity edema was noted which was +1 mm pitting, no cyanosis was noted, no clubbing was noted. Neuro: Cranial nerves II through XII are grossly intact, no focal motor deficits were noted, sensation to light touch and pinprick intact, motor exam 5/5 throughout. Psych: Patient is alert and oriented x3, he does not appear anxious or depressed, he does not appear agitated. Patient was discharged in stable condition on 10/22/2022, again I had a long discussion with him about going home on oxygen which she refused to consider. Patient will follow-up with Dr. Hazel his primary care physician, I talked with her by phone briefly the day of his discharge. Weight / BMI Weight Weight: 69.2 kg Body Mass Index (BMI) 28.8 ABG / Lab / Microbiology Data Result Diagrams: 10/22/22 02:55 10/21/22 03:13 Laboratory: Laboratory Results - last 24 hr 10/20/22 11:55: Crossmatch See Detail 10/20/22 12:54: Hypochromasia 1+, Anisocytosis 1+ 10/20/22 16:51: Hgb 7.3 L, Hct 24.6 L 10/21/22 03:13: WBC 4.6, RBC 2.63 L, Hgb 7.1 L, Hct 23.1 L, MCV 87.8, MCH 27.0, MCHC 30.7 L, RDW Std Deviation 51.5 H, RDW Coeff of Jaciel 16.8 H, Plt Count 212, MPV 9.7, Immature Gran % (Auto) 0.200, Neut % (Auto) 52.6, Lymph % (Auto) 29.1, [place] % (Auto) 13.4 H, Eos % (Auto) 4.1, Baso % (Auto) 0.6, Absolute Neuts (auto) 2.4, Absolute Lymphs (auto) 1.35, Nucleated RBC % 0 10/21/22 03:13: PT 16.6 H, INR 1.3, APTT 38.3 H 10/21/22 03:13: Sodium 145, Potassium 3.5, Chloride 107, Carbon Dioxide 32.0, Anion Gap 6, BUN 12, Creatinine 0.87, Estim Creat Clear Calc 50.93, Est GFR (MDRD) Af Amer 109, Est GFR (MDRD) Non-Af 90, BUN/Creatinine Ratio 13.8, Glucose 92, Calcium 8.1 L, Albumin 2.7 L 10/21/22 06:10: WBC 5.5, RBC 2.80 L, Hgb 7.1 L, Hct 24.8 L, MCV 88.6, MCH 25.4 L, MCHC 28.6 L D, RDW Std Deviation 53.1 H, RDW Coeff of Jaciel 16.9 H, Plt Count 225, MPV 9.5, Immature Gran % (Auto) 0.200, Neut % (Auto) 53.9, Lymph % (Auto) 28.2, [place] % (Auto) 13.2 H, Eos % (Auto) 4.0, Baso % (Auto) 0.5, Absolute Neuts (auto) 3.0, Absolute Lymphs (auto) 1.56, Nucleated RBC % 0 Microbiology: Microbiology 10/20/22 12:05 Stool Stool Occult Blood (ALEYDA) - Final Occult Blood Positive D/C Instructions Discharge Diet: No restrictions Weight Bearing Status: Full weight bearing Meaningful Use Info Meaningful Use Diagnoses (Choose all that apply): None applicable Discharge Plan Admission Admit Date/Time: 10/20/22 15:01 Primary Reason for Your Visit: acute on chronic iron deficiency anemia, hypoxia Attending Provider: Dajuan Ayers Primary Care Provider: Gloria Hazel Instructions Additional Instructions / Restrictions: It is recommended to use oxygen at two liters per min, at this time you have declined supplemental oxygen set up at home Discharge Orders/Prescriptions Prescriptions: New potassium chloride 10 mEq tablet extended release 20 meq PO DAILY Qty: 60 0RF Continued folic acid 1 mg tablet 2 mg PO DAILY mirtazapine 15 mg tablet 15 mg PO QHS multivitamin [Daily Multi-Vitamin] Tablet 1 tab PO DAILY finasteride 1 mg tablet 5 mg PO DAILY aspirin 81 mg tablet,delayed release (DR/EC) 81 mg PO DAILY Qty: 1 0RF tamsulosin 0.4 MG capsule 0.4 mg PO DAILY@1800 trazodone 100 MG tablet 150 mg PO QHS vitamin U62-kasue acid 2,500-400 mcg tablet,disintegrating 1 tab PO DAILY Simponi ARIA 12.5 mg/mL Solution 12.5 mg IV .[id number] Label Comments: PT GOES TO GET INJECTION EVERY 8 WEEKS CAN NOT REMEMBER LAST SHOT NEXT DUE IS IN OCTOBER buprenorphine 10 mcg/hour Patch Weekly 1 patch TRANSDERMAL QWEEK Rx Instructions: change on gabapentin 300 mg capsule 300 mg PO TID PRN PRN (Reason: NERVE PAIN) Label Comments: Take 1 (one) Capsule by mouth three times daily, as needed prednisone 10 mg tablet 10 mg PO DAILY Qty: 1 0RF Rx Instructions: As instructed Xarelto 20 mg tablet 20 mg PO DAILY Qty: 1 0RF Rx Instructions: must administer with evening meal, start on 10/22/2022 amiodarone 200 mg tablet 200 mg PO DAILY Qty: 90 3RF atorvastatin [Lipitor] 40 mg tablet 40 mg PO QHS Qty: 90 3RF Changed furosemide [Lasix] 40 mg tablet 80 mg PO BID Qty: 270 3RF polysaccharide iron complex [Ferrex 150] 150 mg iron capsule 150 mg PO BID 90 Days Qty: 90 0RF Referrals / Follow Up: Gloria Hazel MD [Primary Care Provider] - Within 1 Week (you will need a repeat hemoglobin checked) Disposition Disposition (needs filled in before D/C Order can be placed): Home, Self Care Charges/Coding Visit Charges Inpatient E&M: 50528 Disch Hosp >30min
[2022-10-21 16:12] LABS: Hematocrit 28.4 % (40-54); Hemoglobin 8.3 g/dL (13.0-16.5)
[2022-10-21 17:45] LABS: Allen Test Positive; Base Excess 6 mmol/L (-2 to +2); Blood Gas Specimen Type ART; FI02 21; O2 Delivery Device Room Air; PO2 45 mmHG (75-100); SITE R Radial; SO2 80 % (95-99); Total Carbon Dioxide 33 mmol/L; pCO2 48.9 mmHg (35-45); pH 7.41 (7.35-7.45)
--- NOTE | 2022-10-21 17:55 | CT_ITS ---
EXAM: CT ANGIOGRAPHY CHEST WITHOUT AND WITH INTRAVENOUS CONTRAST CLINICAL INDICATION: hypoxia TECHNIQUE: Helically acquired angiography images were obtained of the chest without and with intravenous contrast. This CT exam was performed using one or more of the following dose reduction techniques: automated exposure control, adjustment of the mA and/or kV according to patient size, and/or use of iterative reconstruction technique. MIP reconstructed images were created and reviewed. CONTRAST: IV 100mL [id number]-370 RADIATION DOSE: CTDIvol = 14.86 mGy, DLP = 457.19 mGy-cm COMPARISON: 4.28.23 FINDINGS: PULMONARY ARTERIES: Unremarkable. No demonstrated pulmonary embolism or arterial dissection. AORTA: There is atherosclerotic calcification of the aortic arch with tortuosity and elongation of the aortic arch and descending thoracic aorta. Normal in caliber. No evidence of dissection. GREAT VESSELS OF AORTIC ARCH: See above. LUNGS AND PLEURAL SPACES: There are bilateral groundglass infiltrates suggesting bilateral pneumonia. [id number] bilateral pleural effusions. No mass. HEART: There are calcifications of the coronary arteries. Heart size is normal. No pericardial effusion. MEDIASTINUM: There is a large food bolus noted in the proximal esophagus. These can be related to a Presbyesophagus. No mediastinal or hilar adenopathy. No hiatal hernia. THYROID: Unremarkable. No thyroid lesions. BONES/JOINTS: There is a compression deformity of L2 which is new since the prior CT. Between that date and current date, the fracture is age-indeterminate. MRI could further evaluate if of concern. Stable T7 compression deformity. Elevated bilateral humeral head with eburnation of the acromion suggest a chronic rotator cuff tear. Healing bilateral rib fractures. There are degenerative changes of the shoulders. There are multi-level degenerative changes of the thoracic spine. No suspicious lytic or blastic abnormality. CT/CTA Chest W/WO Contrast IMPRESSION: 1. No demonstrated pulmonary embolism or arterial dissection. 2. There is a compression deformity of L2 which is new since the prior CT. Between that date and current date, the fracture is age-indeterminate. MRI could further evaluate if of concern. 3. There are bilateral groundglass infiltrates suggesting bilateral pneumonia. [id number] bilateral pleural effusions. 4. There is a large food bolus noted in the proximal esophagus. These can be related to a Presbyesophagus. Electronically Signed: Matt Solorzano MD at 19:20 EDT ,
[2022-10-21] MEDS: Tamsulosin HCl 0.4 MG Capsule PO (18:04)
[2022-10-21] MEDS: Furosemide 20 MG/2 ML VIAL IV ×2 (18:05→21:41)
--- NOTE | 2022-10-21 19:28 | PN.HOSP_ITS ---
Reason for Visit Reason for Visit: Diagnoses Gastrointestinal hemorrhage, unspecified (10/20/22) Hypoxemia (10/20/22) Localized edema (10/20/22) Other specified abnormalities of plasma proteins (10/20/22) Other specified abnormal findings of blood chemistry (10/20/22) Subjective Subjective Patient was seen and examined today, he underwent an EGD which showed no evidence of upper GI bleeding. I was set to have the patient be discharged this afternoon after transfusing 1 unit of packed red blood cells, patient was noted to be hypoxic however on room air, I performed a CTA of the chest and it showed an impacted food bolus in the proximal esophagus as well as evidence of possible pneumonia with bilateral groundglass infiltrates. I have decided to start the patient on Unasyn, I called gastroenterology and they will need to perform an EGD tonight for the food bolus impaction. I was notified late this afternoon before the CTA was performed that the patient was having swallowing difficulties, I believe it must of been due to the food bolus. Objective Data Objective Data Vital Signs: Vital Signs Temp Pulse Resp BP Pulse Ox O2 Del Method O2 Flow Rate 98.1 F 69 18 127/60 H 100 Nasal Cannula 2 10/21/22 18:07 10/21/22 18:07 10/21/22 18:07 10/21/22 18:07 10/21/22 18:07 10/21/22 18:07 10/21/22 18:07 Oxygen Flow Rate (L/min) 2 Oxygen Delivery Method Nasal Cannula Weight: 69.2 kg Body Mass Index (BMI) 28.8 Intake & Output: Intake and Output for Last 24 Hours 10/19/22 10/20/22 10/21/22 23:59 23:59 23:59 Intake Total 490 / 490 760 / 760 Output Total 475 / 475 300 / 300 Balance 460 / 460 Lab / Micro Data Result Diagrams: 10/21/22 15:50 10/21/22 03:13 Labs: Laboratory Results - last 24 hr 10/20/22 11:55: Crossmatch See Detail 10/21/22 03:13: WBC 4.6, RBC 2.63 L, Hgb 7.1 L, Hct 23.1 L, MCV 87.8, MCH 27.0, MCHC 30.7 L, RDW Std Deviation 51.5 H, RDW Coeff of Jaciel 16.8 H, Plt Count 212, MPV 9.7, Immature Gran % (Auto) 0.200, Neut % (Auto) 52.6, Lymph % (Auto) 29.1, [place] % (Auto) 13.4 H, Eos % (Auto) 4.1, Baso % (Auto) 0.6, Absolute Neuts (auto) 2.4, Absolute Lymphs (auto) 1.35, Nucleated RBC % 0 10/21/22 03:13: PT 16.6 H, INR 1.3, APTT 38.3 H 10/21/22 03:13: Sodium 145, Potassium 3.5, Chloride 107, Carbon Dioxide 32.0, Anion Gap 6, BUN 12, Creatinine 0.87, Estim Creat Clear Calc 50.93, Est GFR (MDRD) Af Amer 109, Est GFR (MDRD) Non-Af 90, BUN/Creatinine Ratio 13.8, Glucose 92, Calcium 8.1 L, Albumin 2.7 L 10/21/22 06:10: WBC 5.5, RBC 2.80 L, Hgb 7.1 L, Hct 24.8 L, MCV 88.6, MCH 25.4 L , MCHC 28.6 L D, RDW Std Deviation 53.1 H, RDW Coeff of Jaciel 16.9 H, Plt Count 225, MPV 9.5, Immature Gran % (Auto) 0.200, Neut % (Auto) 53.9, Lymph % (Auto) 28.2, [place] % (Auto) 13.2 H, Eos % (Auto) 4.0, Baso % (Auto) 0.5, Absolute Neuts (auto) 3.0, Absolute Lymphs (auto) 1.56, Nucleated RBC % 0 10/21/22 15:50: Hgb 8.3 L, Hct 28.4 L Micro: Microbiology 10/20/22 12:05 Stool Stool Occult Blood (ALEYDA) - Final Occult Blood Positive ABG Data ABG results: ABG 10/21/22 17:42 Specimen Type ART Sample Site R Radial pH 7.41 Bicarbonate Actual 31.0 H Total CO2 33 Base Excess 6 H O2 Saturation 80 L O2 % 21 ABG pCO2 48.9 H ABG pO2 45 L Rayray Test Positive O2 Delivery Device Room Air Radiography Diagnostic Testing: Radiology Impression Chest CTA 10/21/22 17:55 IMPRESSION: 1. No demonstrated pulmonary embolism or arterial dissection. 2. There is a compression deformity of L2 which is new since the prior CT. Between that date and current date, the fracture is age-indeterminate. MRI could further evaluate if of concern. 3. There are bilateral groundglass infiltrates suggesting bilateral pneumonia. [id number] bilateral pleural effusions. 4. There is a large food bolus noted in the proximal esophagus. These can be related to a Presbyesophagus. Electronically Signed: Matt Solorzano MD at 19:20 EDT , Physical Exam Const alert, oriented x3, no apparent distress and average body habitus General Appearance: cooperative, well kempt and well developed Orientation / Consciousness: awake, oriented to person, oriented to place and oriented to time HEENT normocephalic, head/scalp atraumatic and moist oral mucous membranes Eyes PERRL, EOMs intact bilaterally and conjunctivae normal Neck supple, no JVD, thyroid normal and no carotid bruits General: trachea midline Resp normal respiratory effort, no retractions, no use of accessory muscles and clear to auscultation bilaterally Auscultation: Negative for rales, rhonchi or wheezes Cardio regular rate, regular rhythm, S1 normal heart sound, S2 normal heart sound, no murmurs, no rub and no gallops GI normal to inspection, nondistended, normoactive bowel sounds, soft to palpation, non-tender and non-distended Extremity Extremity Narrative: Patient has generalized edema of his lower legs bilaterally. Skin no rashes or lesions noted General Skin Exam: no breakdown Neuro oriented x3, CN's II-XII intact bilaterally, moves all extremities, no focal motor deficits and no sensory deficits noted Sensorium / Orientation: awake and alert Speech: speech normal Psych affect normal Assessment & Plan Assessment/Plan (1) ABLA (acute blood loss anemia): (2) Hypoxia: (3) Elevated troponin: (4) Elevated brain natriuretic peptide (BNP) level: (5) Acute GI bleeding: PLAN: Plan 1. Acute on chronic iron deficiency anemia-patient received IV Venofer today and 1 unit of packed red blood cells, CBC will be repeated tomorrow #2 anasarca-exact etiology unclear, I suspect he has a component of chronic diastolic congestive heart failure, patient will be placed on IV Lasix, Eber wrap will be applied to his legs. #3 paroxysmal atrial fibrillation-patient is currently on Xarelto, this will be held at this time, patient will need a repeat endoscopy tonight #4 hypercoagulable state secondary to paroxysmal atrial fibrillation-patient's anticoagulation will have to be held due to concerns of bleeding. #5 coronary artery disease-patient had a stent placed approximately 2 years ago in his obtuse marginal branch. At that time, he had an LAD lesion of 100%, this was not able to be stented. Patient will need to stay off his aspirin at this time due to concerns of bleeding. He will remain on his atorvastatin. #6 BPH-patient is on Proscar and Flomax #7 possible rheumatoid arthritis-patient is on Simponi as an outpatient and also prednisone daily for 3 to 5 days as needed for flareup, I have elected to hold his prednisone at this time, it appears he does see a data recovery planner. #8 pulmonary infiltrates suggestive of possible pneumonia-patient will be placed on Unasyn, I am worried that he could have had an aspiration episode. He may have underlying lung disease, CTA did not show any evidence of pulmonary emboli #9 Food impaction proximal esophagus, patient will need to undergo endoscopy tonight for removal of the food bolus. Total clinical time spent by myself addressing the patient's medical issues, reviewing all of his data, and collaborating with patient's care team: 37 minutes Charges/Coding Visit Charges Inpatient E&M: 38619 Subs Hosp L2
--- NOTE | 2022-10-21 19:50 | PN_ITS ---
Subjective Subjective Patient underwent an upper endoscopy yesterday and no etiology of his GI bleed was found. However I was told that the patient has a food bolus and needs an emergent upper endoscopy. Objective Data Objective Data Vital Signs: Vital Signs Temp Pulse Resp BP Pulse Ox O2 Del Method O2 Flow Rate 98.1 F 69 18 127/60 H 100 Nasal Cannula 2 10/21/22 18:07 10/21/22 18:07 10/21/22 18:07 10/21/22 18:07 10/21/22 18:07 10/21/22 18:07 10/21/22 18:07 Oxygen Flow Rate (L/min) 2 Oxygen Delivery Method Nasal Cannula Weight: 152 lb 8.958 oz Body Mass Index (BMI) 28.8 Intake & Output: Intake and Output for Last 24 Hours 10/19/22 10/20/22 10/21/22 23:59 23:59 23:59 Intake Total 490 / 490 760 / 760 Output Total 475 / 475 300 / 300 Balance 460 / 460 Lab / Micro Data Result Diagrams: 10/21/22 15:50 10/21/22 03:13 Labs: Laboratory Results - last 24 hr 10/20/22 11:55: Crossmatch See Detail 10/21/22 03:13: WBC 4.6, RBC 2.63 L, Hgb 7.1 L, Hct 23.1 L, MCV 87.8, MCH 27.0, MCHC 30.7 L, RDW Std Deviation 51.5 H, RDW Coeff of Jaciel 16.8 H, Plt Count 212, MPV 9.7, Immature Gran % (Auto) 0.200, Neut % (Auto) 52.6, Lymph % (Auto) 29.1, [place] % (Auto) 13.4 H, Eos % (Auto) 4.1, Baso % (Auto) 0.6, Absolute Neuts (auto) 2.4, Absolute Lymphs (auto) 1.35, Nucleated RBC % 0 10/21/22 03:13: PT 16.6 H, INR 1.3, APTT 38.3 H 10/21/22 03:13: Sodium 145, Potassium 3.5, Chloride 107, Carbon Dioxide 32.0, Anion Gap 6, BUN 12, Creatinine 0.87, Estim Creat Clear Calc 50.93, Est GFR (MDRD) Af Amer 109, Est GFR (MDRD) Non-Af 90, BUN/Creatinine Ratio 13.8, Glucose 92, Calcium 8.1 L, Albumin 2.7 L 10/21/22 06:10: WBC 5.5, RBC 2.80 L, Hgb 7.1 L, Hct 24.8 L, MCV 88.6, MCH 25.4 L , MCHC 28.6 L D, RDW Std Deviation 53.1 H, RDW Coeff of Jaciel 16.9 H, Plt Count 225, MPV 9.5, Immature Gran % (Auto) 0.200, Neut % (Auto) 53.9, Lymph % (Auto) 28.2, [place] % (Auto) 13.2 H, Eos % (Auto) 4.0, Baso % (Auto) 0.5, Absolute Neuts (auto) 3.0, Absolute Lymphs (auto) 1.56, Nucleated RBC % 0 10/21/22 15:50: Hgb 8.3 L, Hct 28.4 L Micro: Microbiology 10/20/22 12:05 Stool Stool Occult Blood (ALEYDA) - Final Occult Blood Positive ABG Data ABG results: ABG 10/21/22 17:42 Specimen Type ART Sample Site R Radial pH 7.41 Bicarbonate Actual 31.0 H Total CO2 33 Base Excess 6 H O2 Saturation 80 L O2 % 21 ABG pCO2 48.9 H ABG pO2 45 L Rayray Test Positive O2 Delivery Device Room Air Radiography Diagnostic Testing: Radiology Impression Chest CTA 10/21/22 17:55 IMPRESSION: 1. No demonstrated pulmonary embolism or arterial dissection. 2. There is a compression deformity of L2 which is new since the prior CT. Between that date and current date, the fracture is age-indeterminate. MRI could further evaluate if of concern. 3. There are bilateral groundglass infiltrates suggesting bilateral pneumonia. [id number]-[id number] bilateral pleural effusions. 4. There is a large food bolus noted in the proximal esophagus. These can be related to a Presbyesophagus. Electronically Signed: Matt Solorzano MD at 19:20 EDT , Physical Exam Const alert, oriented x3, no apparent distress and average body habitus General Appearance: cooperative, well kempt and well developed Orientation / Consciousness: awake, oriented to person, oriented to place and oriented to time HEENT normocephalic, head/scalp atraumatic and moist oral mucous membranes Eyes PERRL, EOMs intact bilaterally and conjunctivae normal Neck supple, no JVD, thyroid normal and no carotid bruits General: trachea midline Resp normal respiratory effort, no retractions, no use of accessory muscles and clear to auscultation bilaterally Auscultation: Negative for rales, rhonchi or wheezes Cardio regular rate, regular rhythm, S1 normal heart sound, S2 normal heart sound, no murmurs, no rub and no gallops GI normal to inspection, nondistended, normoactive bowel sounds, soft to palpation, non-tender and non-distended Extremity Extremity Narrative: Patient has generalized edema of his lower legs bilaterally. Skin no rashes or lesions noted General Skin Exam: no breakdown Neuro oriented x3, CN's II-XII intact bilaterally, moves all extremities, no focal motor deficits and no sensory deficits noted Sensorium / Orientation: awake and alert Speech: speech normal Psych affect normal Assessment & Plan Assessment/Plan (1) Food bolus obstruction of intestine: (2) Hypoxia: (3) Elevated troponin: (4) Elevated brain natriuretic peptide (BNP) level: (5) Acute GI bleeding: PLAN: Plan #Anemia -He underwent an upper endoscopy. No etiology of GI bleed was seen. He will need a capsule endoscopy as an outpatient. #Lower extremity edema -Last echo August 2022 with an EF of 55%, mild to moderate mitral valve insufficiency, RVSP of 35, stage II diastolic dysfunction -Does take Lasix 40 mg daily, will start IV dosing -I's and O's, daily weights #HFpEF -Grade II diastolic dysfunction on echo in 2022 -BNP 243 and appears peripherally overloaded -Repeat echo #Normocytic anemia -7.8in the ED, 7 days ago was11.7. - will continue iron supplementation #Hx cad with stent 08/06/2020 -PCI of OM2 with GAGE in 2020 but unsuccessful PCI of [employer] of LAD -Has troponin of 138 however no chest pain -Hold aspirin #Chronic pain -Continue buprenorphine patch #pafib -Continue amiodarone -Hold Xarelto #RA -Pt reports he follows w/ rheum as outpt -Takes pred PRN, not presently taking Charges/Coding Visit Charges Inpatient E&M: 04219 Subs Hosp L3
[2022-10-21] MEDS: Lactated Ringers 1,000 ML 15 ML IV (20:15)
--- NOTE | 2022-10-21 20:42 | OP.EGD_ITS ---
Patient Name: Justo Rodriguez Procedure Date: 10/21/2022 8:23 PM Date of : 1940 Age: 81 Procedure: Upper GI endoscopy Indications: Dysphagia Providers: Nikunj Saul DO Medicines: Monitored Anesthesia Care Patient Profile: This is a 81 year old male. Refer to note in patient chart for documentation of history and physical. Patient has symptoms of acute dyspepsia. He is status post EGD (normal). Complications: No immediate complications. Procedure: Pre-Anesthesia Assessment: - Prior to the procedure, a History and Physical was performed, and patient medications and allergies were reviewed. The patient is competent. The risks and benefits of the procedure and the sedation options and risks were discussed with the patient. All questions were answered and informed consent was obtained. Patient identification and proposed procedure were verified by the physician in the pre-procedure area. Mental Status Examination: normal. Airway Examination: normal oropharyngeal airway and neck mobility. Respiratory Examination: clear to auscultation. CV Examination: normal. Prophylactic Antibiotics: The patient does not require prophylactic antibiotics. Prior Anticoagulants: The patient has taken no previous anticoagulant or antiplatelet agents. After reviewing the risks and benefits, the patient was deemed in satisfactory condition to undergo the procedure. The anesthesia plan was to use monitored anesthesia care (MAC). Immediately prior to administration of medications, the patient was re-assessed for adequacy to receive sedatives. The heart rate, respiratory rate, oxygen saturations, blood pressure, adequacy of pulmonary ventilation, and response to care were monitored throughout the procedure. The physical status of the patient was re-assessed after the procedure. After obtaining informed consent, the endoscope was passed under direct vision. Throughout the procedure, the patient's blood pressure, pulse, and oxygen saturations were monitored continuously. The Endoscope was introduced through the mouth, and advanced to the second part of duodenum. The upper GI endoscopy was accomplished without difficulty. The patient tolerated the procedure well. Scope In: 8:35:52 PM Scope Out: 8:38:42 PM Total Procedure Duration Time 0 hours 2 minutes 50 seconds Findings: Food was found in the middle third of the esophagus. Removal of food was accomplished. A mild Schatzki ring was found in the middle third of the esophagus. A guidewire was placed and the scope was withdrawn. Dilation was performed with a Savary dilator with no resistance at 60 Fr. The dilation site was examined and showed complete resolution of luminal narrowing. A large amount of food (residue) was found in the entire examined stomach. The duodenal bulb was normal. Impression: - Food in the middle third of the esophagus. Removal was successful. - Mild Schatzki ring. Dilated. - A large amount of food (residue) in the stomach. - Normal duodenal bulb. Recommendation: - [facility]. - Full liquid diet. - Continue present medications. Procedure Code(s): --- Professional --- 13768, Esophagogastroduodenoscopy, flexible, transoral; with removal of foreign body(s) 87618, Esophagogastroduodenoscopy, flexible, transoral; with insertion of guide wire followed by passage of dilator(s) through esophagus over guide wire CPT copyright 2017 [employer]. All rights reserved. The codes documented in this report are preliminary and upon postbed stitcher review may be revised to meet current compliance requirements. Nikunj Saul DO 10/21/2022 8:42:12 PM This report has been signed electronically. Number of Addenda: 0 Note Initiated On: 10/21/2022 8:23 PM
--- NOTE | 2022-10-21 20:43 | OP.CCLET_ITS ---
10/21/2022 Gloria Hazel [address] [place] [address] Re : Upper GI endoscopy procedure for Justo Rodriguez Dear Dr. Hazel This procedure was performed on Friday, October 21, 2022. My impressions and recommendations are as follows: Impressions : - Food in the middle third of the esophagus. Removal was successful. - Mild Schatzki ring. Dilated. - A large amount of food (residue) in the stomach. - Normal duodenal bulb. Recommendations : - [facility]. - Full liquid diet. - Continue present medications. My findings are described in the full procedure note, which is enclosed. If I can be of further assistance, please feel free to contact me at . Sincerely, Nikunj Saul, 10/21/2022 8:42:12 PM This report has been signed electronically.
[2022-10-21] MEDS: Atorvastatin Calcium 40 MG Tablet PO (21:42)
[2022-10-21] MEDS: Mirtazapine 15 MG Tablet PO (21:42)
[2022-10-22 03:07] LABS: Absolute Lymphocyte Count 1.71 X10^3/uL (0.83-4.51); Absolute Neutrophil Count 4.3 X10^3/uL (2.0-7.7); Basophil# 0.06 X10^3/uL; Basophil% 0.8 % (0-1); Eosinophil# 0.21 X10^3/uL; Eosinophils% 2.9 % (0-5); Hematocrit 28.5 % (40-54); Hemoglobin 8.3 g/dL (13.0-16.5); Lymphocyte # 1.71 X10^3/ul (0.83-4.51); Lymphocyte % 23.3 % (19-41); Mean Corp Hgb Conc 29.1 g/dL (32-36); Mean Corpuscular Hgb 26.2 pg (27.0-32.0); Mean Corpuscular Volume 89.9 fL (80-94); Mean Platelet Vol. 9.8 fl (6.2-12.0); Monocyte# 1.01 X10^3/uL; Monocyte% 13.8 % (0-10); NRBC Flagged by Analyzer 0 % (0-5); Neutrophil # 4.33 X10^3/uL (2.7-7.7); Neutrophil % 58.9 % (47-70); Platelet Count 243 K/mm3 (150-450); RBC Distribution Width CV 16.7 % (11.6-14.6); RBC Distribution Width SD 54.3 fl (35.1-43.9); Red Blood Count 3.17 M/mm3 (4.6-6.2); White Blood Count 7.3 K/mm3 (4.4-11.0)
[2022-10-22 05:00] VITALS: BP 112/59; PULSE 73; RESP 18; TEMP 37.1; O2SAT 92
[2022-10-22 07:30] VITALS: PULSE 75; RESP 16; O2SAT 90
[2022-10-22] MEDS: Albuterol 2.5 MG/3 ML VIAL.NEB. INHALATION ×2 (07:30→13:29)
[2022-10-22 08:44] VITALS: O2SAT 81; O2SAT 87; O2SAT 92; O2SAT 93
[2022-10-22] MEDS: Folic Acid 1 MG Tablet 2 MG PO (08:44)
[2022-10-22] MEDS: Amiodarone 200 MG Tablet PO (08:45)
[2022-10-22] MEDS: Finasteride 5 MG Tablet PO (08:45)
[2022-10-22] MEDS: Furosemide 20 MG/2 ML VIAL IV (08:45)
--- NOTE | 2022-10-22 10:25 | CASEMGMT ---
Noted pt requires home oxygen, RN CM into pt room, pt sitting up in chair. Discussed homegoing oxygen instructions. Pt is upset about this and asks what will happen if he does not use it. Instructed on importance of oxyen. Pt is aware to call number on tag once home. Pt is agreeable to [facility] after being provided a local verbal in network list. Updated pt nurse. Pt denies any further homegoing needs.
[2022-10-22 10:53] VITALS: BP 111/45; PULSE 69; RESP 69; TEMP 36.6; O2SAT 93
--- NOTE | 2022-10-22 11:13 | DCINST_ITS ---
Discharge Instructions Diet Discharge Diet: No restrictions Activity Discharge Activity: Return to Normal Activity Weight Bearing Status: Full weight bearing Follow Up Care Test Results: Test results from this visit will be discussed in further detail at your follow- up appointment, if applicable. Discharge Plan Admission Admit Date/Time: 10/20/22 15:01 Primary Reason for Your Visit: acute on chronic iron deficiency anemia, hypoxia Attending Provider: Dajuan Ayers Primary Care Provider: Gloria Hazel Instructions Additional Instructions / Restrictions: use oxygen at two liters per min Discharge Orders/Prescriptions Prescriptions: New potassium chloride 10 mEq tablet extended release 20 meq PO DAILY Qty: 60 0RF Continued folic acid 1 mg tablet 2 mg PO DAILY mirtazapine 15 mg tablet 15 mg PO QHS multivitamin [Daily Multi-Vitamin] Tablet 1 tab PO DAILY finasteride 1 mg tablet 5 mg PO DAILY aspirin 81 mg tablet,delayed release (DR/EC) 81 mg PO DAILY Qty: 1 0RF tamsulosin 0.4 MG capsule 0.4 mg PO DAILY@1800 trazodone 100 MG tablet 150 mg PO QHS vitamin L85-vaydo acid 2,500-400 mcg tablet,disintegrating 1 tab PO DAILY Simponi ARIA 12.5 mg/mL Solution 12.5 mg IV .[id number] Label Comments: PT GOES TO GET INJECTION EVERY 8 WEEKS CAN NOT REMEMBER LAST SHOT NEXT DUE IS IN OCTOBER buprenorphine 10 mcg/hour Patch Weekly 1 patch TRANSDERMAL QWEEK Rx Instructions: change on gabapentin 300 mg capsule 300 mg PO TID PRN PRN (Reason: NERVE PAIN) Label Comments: Take 1 (one) Capsule by mouth three times daily, as needed prednisone 10 mg tablet 10 mg PO DAILY Qty: 1 0RF Rx Instructions: As instructed Xarelto 20 mg tablet 20 mg PO DAILY Qty: 1 0RF Rx Instructions: must administer with evening meal, start on 10/22/2022 amiodarone 200 mg tablet 200 mg PO DAILY Qty: 90 3RF atorvastatin [Lipitor] 40 mg tablet 40 mg PO QHS Qty: 90 3RF Changed furosemide [Lasix] 40 mg tablet 80 mg PO BID Qty: 270 3RF polysaccharide iron complex [Ferrex 150] 150 mg iron capsule 150 mg PO BID 90 Days Qty: 90 0RF Referrals / Follow Up: Gloria Hazel MD [Primary Care Provider] - Within 1 Week (you will need a repeat hemoglobin checked) Disposition Disposition (needs filled in before D/C Order can be placed): Home, Self Care
--- NOTE | 2022-10-22 11:21 | PCM.DC.SUM ---
Providers Date of Admission: 10/20/22 Date of Discharge: 10/22/22 Primary Care Physician: Dr. Gloria Hazel MD Consultations 10/20/22 15:19 Consult: Gastroenterology Routine Consulting Provider: [facility] Reason for Consult: anemia EMERGENT Consult: No MD Notified: Yes Date Notified: 10/20/22 Time Notified: 15:14 Method of Notification: Verbal Reason For Visit: GI BLEED, ANEMIA, PLEURAL EFFUSION Diagnosis Discharge Diagnosis (1) Food bolus obstruction of intestine: Status: Acute Code(s): K56.699 - Other intestinal obstruction unspecified as to partial versus complete obstruction (2) Hypoxia: Status: Resolved Code(s): R09.02 - Hypoxemia (3) Elevated troponin: Status: Inactive Code(s): R77.8 - Other specified abnormalities of plasma proteins (4) Elevated brain natriuretic peptide (BNP) level: Status: Inactive Code(s): R79.89 - Other specified abnormal findings of blood chemistry (5) Acute GI bleeding: Status: Acute Code(s): K92.2 - Gastrointestinal hemorrhage, unspecified Plan 1. Acute on chronic iron deficiency anemia-patient received IV Venofer today and 1 unit of packed red blood cells, CBC will be repeated tomorrow #2 anasarca-exact etiology unclear, I suspect he has a component of chronic diastolic congestive heart failure, patient will be placed on IV Lasix, Eber wrap will be applied to his legs. #3 paroxysmal atrial fibrillation-patient is currently on Xarelto, this will be held at this time, patient will need a repeat endoscopy tonight #4 hypercoagulable state secondary to paroxysmal atrial fibrillation-patient's anticoagulation will have to be held due to concerns of bleeding. #5 coronary artery disease-patient had a stent placed approximately 2 years ago in his obtuse marginal branch. At that time, he had an LAD lesion of 100%, this was not able to be stented. Patient will need to stay off his aspirin at this time due to concerns of bleeding. He will remain on his atorvastatin. #6 BPH-patient is on Proscar and Flomax #7 possible rheumatoid arthritis-patient is on Simponi as an outpatient and also prednisone daily for 3 to 5 days as needed for flareup, I have elected to hold his prednisone at this time, it appears he does see a occupational therapist per diem. #8 pulmonary infiltrates suggestive of possible pneumonia-patient will be placed on Unasyn, I am worried that he could have had an aspiration episode. He may have underlying lung disease, CTA did not show any evidence of pulmonary emboli #9 Food impaction proximal esophagus, patient will need to undergo endoscopy tonight for removal of the food bolus. Total clinical time spent by myself addressing the patient's medical issues, reviewing all of his data, and collaborating with patient's care team: 37 minutes Medications at Discharge Home Medications tamsulosin 0.4 mg capsule 0.4 mg PO DAILY@1800 Retention 07/18/20 folic acid 1 mg tablet 2 mg PO DAILY 09/28/20 finasteride 1 mg tablet 5 mg PO DAILY 12/30/20 multivitamin (Daily Multi-Vitamin tablet) 1 tab PO DAILY Check with primary doctor 01/01/21 trazodone 100 mg tablet 150 mg PO QHS Check with primary doctor 05/09/21 amiodarone 200 mg tablet 200 mg PO DAILY heart rate #90 tabs 10/08/21 aspirin 81 mg tablet,delayed release 81 mg PO DAILY #1 TAB 01/10/22 mirtazapine 15 mg tablet 15 mg PO QHS 01/10/22 vitamin B12 2,500 mcg-folic acid 400 mcg disintegrating tablet 1 tab PO DAILY Check with primary doctor 01/10/22 golimumab 12.5 mg/mL intravenous solution (Simponi ARIA) 12.5 mg IV .[id number] 05/31/22 buprenorphine 10 mcg/hour weekly transdermal patch 1 patch transdermal QWEEK pain 09/20/22 atorvastatin 40 mg tablet (Lipitor) 40 mg PO QHS Cholesterol #90 tabs 10/07/22 gabapentin 300 mg capsule 300 mg PO TID PRN PRN NERVE PAIN 10/20/22 furosemide 40 mg tablet (Lasix) 80 mg PO BID #270 tabs 10/21/22 polysaccharide iron complex 150 mg iron capsule (Ferrex) 150 mg PO BID 90 days #90 caps 10/21/22 potassium chloride 10 mEq tablet,extended release 20 meq PO DAILY #60 tabs 10/21/22 prednisone 10 mg tablet 10 mg PO DAILY #1 TAB 10/21/22 rivaroxaban 20 mg tablet (Xarelto) 20 mg PO DAILY anticoagulation #1 TAB 10/21/22 Weight / BMI Weight Weight: 69.2 kg Body Mass Index (BMI) 28.8 ABG / Lab / Microbiology Data Result Diagrams: 10/22/22 02:55 10/21/22 03:13 Laboratory: Laboratory Results - last 24 hr 10/20/22 11:55: Crossmatch See Detail 10/21/22 15:50: Hgb 8.3 L, Hct 28.4 L 10/22/22 02:55: WBC 7.3, RBC 3.17 L, Hgb 8.3 L, Hct 28.5 L, MCV 89.9, MCH 26.2 L, MCHC 29.1 L, RDW Std Deviation 54.3 H, RDW Coeff of Jaciel 16.7 H, Plt Count 243, MPV 9.8, Immature Gran % (Auto) 0.300, Neut % (Auto) 58.9, Lymph % (Auto) 23.3, Archer % (Auto) 13.8 H, Eos % (Auto) 2.9, Baso % (Auto) 0.8, Absolute Neuts (auto) 4.3, Absolute Lymphs (auto) 1.71, Nucleated RBC % 0 Microbiology: Microbiology 10/20/22 12:05 Stool Stool Occult Blood (ALEYDA) - Final Occult Blood Positive ABG: ABG 10/21/22 17:42 Specimen Type ART Sample Site R Radial pH 7.41 Bicarbonate Actual 31.0 H Total CO2 33 Base Excess 6 H O2 Saturation 80 L O2 % 21 ABG pCO2 48.9 H ABG pO2 45 L Rayray Test Positive O2 Delivery Device Room Air Radiography Diagnostic Testing: Radiology Impression Chest CTA 10/21/22 17:55 IMPRESSION: 1. No demonstrated pulmonary embolism or arterial dissection. 2. There is a compression deformity of L2 which is new since the prior CT. Between that date and current date, the fracture is age-indeterminate. MRI could further evaluate if of concern. 3. There are bilateral groundglass infiltrates suggesting bilateral pneumonia. [id number] bilateral pleural effusions. 4. There is a large food bolus noted in the proximal esophagus. These can be related to a Presbyesophagus. Electronically Signed: Matt Solorzano MD at 19:20 EDT , D/C Instructions Discharge Diet: No restrictions Weight Bearing Status: Full weight bearing Discharge Plan Admission Admit Date/Time: 10/20/22 15:01 Primary Reason for Your Visit: acute on chronic iron deficiency anemia, hypoxia Attending Provider: Dajuan Ayers Primary Care Provider: Gloria Hazel Instructions Additional Instructions / Restrictions: use oxygen at two liters per min Discharge Orders/Prescriptions Prescriptions: New potassium chloride 10 mEq tablet extended release 20 meq PO DAILY Qty: 60 0RF Continued folic acid 1 mg tablet 2 mg PO DAILY mirtazapine 15 mg tablet 15 mg PO QHS multivitamin [Daily Multi-Vitamin] Tablet 1 tab PO DAILY finasteride 1 mg tablet 5 mg PO DAILY aspirin 81 mg tablet,delayed release (DR/EC) 81 mg PO DAILY Qty: 1 0RF tamsulosin 0.4 MG capsule 0.4 mg PO DAILY@1800 trazodone 100 MG tablet 150 mg PO QHS vitamin [id number] acid 2,500-400 mcg tablet,disintegrating 1 tab PO DAILY Simponi ARIA 12.5 mg/mL Solution 12.5 mg IV .[id number] Label Comments: PT GOES TO GET INJECTION EVERY 8 WEEKS CAN NOT REMEMBER LAST SHOT NEXT DUE IS IN OCTOBER buprenorphine 10 mcg/hour Patch Weekly 1 patch TRANSDERMAL QWEEK Rx Instructions: change on gabapentin 300 mg capsule 300 mg PO TID PRN PRN (Reason: NERVE PAIN) Label Comments: Take 1 (one) Capsule by mouth three times daily, as needed prednisone 10 mg tablet 10 mg PO DAILY Qty: 1 0RF Rx Instructions: As instructed Xarelto 20 mg tablet 20 mg PO DAILY Qty: 1 0RF Rx Instructions: must administer with evening meal, start on 10/22/2022 amiodarone 200 mg tablet 200 mg PO DAILY Qty: 90 3RF atorvastatin [Lipitor] 40 mg tablet 40 mg PO QHS Qty: 90 3RF Changed furosemide [Lasix] 40 mg tablet 80 mg PO BID Qty: 270 3RF polysaccharide iron complex [Ferrex 150] 150 mg iron capsule 150 mg PO BID 90 Days Qty: 90 0RF Referrals / Follow Up: Gloria Hazel MD [Primary Care Provider] - Within 1 Week (you will need a repeat hemoglobin checked) Disposition Disposition (needs filled in before D/C Order can be placed): Home, Self Care
--- NOTE | 2022-10-22 11:46 | NURSING ---
This RN responded to patients room. He stated that he talked with the Dr and he was being sent home with oxygen, patient verbalized that he was very upset at being discharged with oxygen and that he didn't want it. It was explained that his oxygen level was in the low 80's at rest on room air and he required more oxygen while walking. Dr Ayers also came to room and explained to the patient. The patient insisted on walking the unit on RA to see how he responded. patient walked the entire department before returning to room. Patient did not appear to be short of breath and was talking without difficulty. Patient was noted to have cyanosis to lips and fingers and pulse ox read 78% on returning to room but patient continued to insist that he felt normal. Dr Ayers discussed situation with patient and agreed that patient could be discharged and refuse the oxygen.
[2022-10-22 13:25] VITALS: PULSE 85; RESP 16
== END 2022-10-22 14:17 | disposition home or self-care (01) | DRG 812 ==
LOC: ED 14:06 → PCU 15:25
PROVIDERS: Anesthesiology; Internal Medicine Gastroenterology; Nurse Practitioner; Admitting Provider Internal Medicine; Emergency Provider Emergency Medicine; PCP Family Medicine; Visit Provider Internal Medicine
PROC: 0DJ08ZZ Inspection of Upper Intestinal Tract, Via Natural or Artificial Opening Endoscopic (ICD-10-PCS; CPT 43235; principal; 2022-10-21 06:25)
DX: D50.9 Iron deficiency anemia, unspecified (principal); D68.59 Other primary thrombophilia; M48.56XA Collapsed vertebra, not elsewhere classified, lumbar region, initial encounter for fracture; I50.32 Chronic diastolic (congestive) heart failure; T18.108A Unspecified foreign body in esophagus causing other injury, initial encounter; K22.2 Esophageal obstruction; I48.0 Paroxysmal atrial fibrillation; M06.9 Rheumatoid arthritis, unspecified; I25.10 Atherosclerotic heart disease of native coronary artery without angina pectoris; E78.5 Hyperlipidemia, unspecified; K44.9 Diaphragmatic hernia without obstruction or gangrene; I25.2 Old myocardial infarction; Z79.82 Long term (current) use of aspirin; Z95.5 Presence of coronary angioplasty implant and graft; R09.02 Hypoxemia; Z79.01 Long term (current) use of anticoagulants; Z79.52 Long term (current) use of systemic steroids; Z87.891 Personal history of nicotine dependence; R13.10 Dysphagia, unspecified; Z79.899 Other long term (current) drug therapy; N40.0 Benign prostatic hyperplasia without lower urinary tract symptoms
CPT/HCPCS: 36415; 36600; 71046; 71275; 80048; 82040; 82274; 82803; 83880; 85014; 85018; 85025; 85610; 85730; 86850; 86900; 86901; 86920; 93005; 94640; 97802; 99284; J7040; J7050; J7120; P9016; Q9967; A4216; J0295; J1940; J2405; J2916

== ENCOUNTER → 2022-11-01 | Outpatient (CLI) | payer MEDICARE, SELFPAY ==
[2022-11-01 17:50] LABS: Absolute Lymphocyte Count 0.41 X10^3/uL (0.83-4.51); Absolute Neutrophil Count 5.6 X10^3/uL (2.0-7.7); Basophil# 0.02 X10^3/uL; Basophil% 0.3 % (0-1); Eosinophil# 0.02 X10^3/uL; Eosinophils% 0.3 % (0-5); Hematocrit 36.8 % (40-54); Hemoglobin 10.9 g/dL (13.0-16.5); Lymphocyte # 0.41 X10^3/ul (0.83-4.51); Lymphocyte % 6.5 % (19-41); Mean Corp Hgb Conc 29.6 g/dL (32-36); Mean Corpuscular Hgb 27.2 pg (27.0-32.0); Mean Corpuscular Volume 91.8 fL (80-94); Mean Platelet Vol. 9.9 fl (6.2-12.0); Monocyte# 0.21 X10^3/uL; Monocyte% 3.3 % (0-10); NRBC Flagged by Analyzer 0 % (0-5); Neutrophil # 5.64 X10^3/uL (2.7-7.7); Neutrophil % 89.1 % (47-70); POSITIVE DIFFERENTIAL YES; POSITIVE MORPHOLOGY YES; Platelet Count 293 K/mm3 (150-450); RBC Distribution Width CV 20.8 % (11.6-14.6); RBC Distribution Width SD 67.5 fl (35.1-43.9); Red Blood Count 4.01 M/mm3 (4.6-6.2); White Blood Count 6.3 K/mm3 (4.4-11.0)
[2022-11-01 18:04] LABS: Differential Indicated SCAN CRITERIA MET
[2022-11-01 18:25] LABS: Anisocytosis 2+; Differential Comment SCANNED
[2022-11-01 18:26] LABS: Macrocytosis 1+; Microcytosis 1+; Ovalocyte RARE; Polychromasia RARE
[2022-11-01 18:53] LABS: Anion Gap 3 (5-15); BUN 15 mg/dL (7-18); Chloride 100 mmol/L (98-107); Creatinine, Serum 0.94 mg/dL (0.70-1.30); EST Glomerular Filtration Rate 82 mL/min (>60); Est Glom Filt Rate - Afr Amer 100 mL/min (>60); Glucose 106 mg/dL (74-106); Potassium 3.9 mmol/L (3.5-5.1); Sodium Level 134 mmol/L (136-145); Thyroid Stim Hormone (TSH) 1.78 uIU/mL (0.358-3.74)
== END | disposition home or self-care (01) ==
LOC: MFPLAB 15:29
PROVIDERS: PCP Family Medicine; Visit Provider Family Medicine
DX: D64.9 Anemia, unspecified (principal); I50.9 Heart failure, unspecified
CPT/HCPCS: 36415; 80048; 84443; 85025

== ENCOUNTER → 2022-11-14 | Outpatient (CLI) | payer MEDICARE, SELFPAY ==
--- NOTE | 2022-11-14 11:20 | RAD_ITS ---
INDICATION: Re-evaluate changes compared to previous EXAMINATION/TECHNIQUE: X-RAY - XR Chest 2 Views COMPARISON: October 20, 2022 FINDINGS: LINES/DEVICES: None. LUNGS: No consolidation, edema or effusion. No pneumothorax. MEDIASTINUM AND CARDIOVASCULAR STRUCTURES: Cardiac silhouette not enlarged. Central airways and mediastinal contour are unremarkable. BONES AND SOFT TISSUES: Probable old left rib fractures. Degenerative vertebral changes. Moderate compression of a midthoracic vertebral body. RAD/Chest PA and Lateral IMPRESSION: No radiographic evidence of acute cardiopulmonary disease. Electronically Signed: Maxx Day DO at 17:59 EDT ,
== END | disposition home or self-care (01) ==
LOC: RAD 11:20
PROVIDERS: PCP Family Medicine; Referring Provider Nurse Practitioner Family; Visit Provider Nurse Practitioner Family
DX: R93.89 Abnormal findings on diagnostic imaging of other specified body structures (principal)
CPT/HCPCS: 71046

== ENCOUNTER 2022-11-15 15:09 | Outpatient (CLI) | payer MEDICARE, SELFPAY ==
[2022-11-15 15:15] VITALS: BMI 28.1
[2022-11-15 15:18] VITALS: BP 133/55; PULSE 77; RESP 14; TEMP 36.2; O2SAT 97; BMI 28.1
[2022-11-15] MEDS: 0.9% NaCl IVPB Med Flush (250 mL) 15 ML IV (15:55)
[2022-11-15 16:43] VITALS: BP 94/45; PULSE 62; RESP 16; TEMP 36.3; O2SAT 93
== END 2022-11-15 15:10 | disposition home or self-care (01) ==
LOC: MEDOUTP 15:09
PROVIDERS: PCP Family Medicine; Referring Provider Internal Medicine Rheumatology; Visit Provider Internal Medicine Rheumatology
DX: M05.79 Rheumatoid arthritis with rheumatoid factor of multiple sites without organ or systems involvement (principal)
CPT/HCPCS: 96365; J7050; A4216; J1602

== ENCOUNTER → 2022-11-28 | Outpatient (CLI) | payer MEDICARE, SELFPAY ==
[2022-11-28 17:04] LABS: Absolute Lymphocyte Count 0.53 X10^3/uL (0.83-4.51); Absolute Neutrophil Count 5.6 X10^3/uL (2.0-7.7); Basophil# 0.01 X10^3/uL; Basophil% 0.2 % (0-1); Eosinophil# 0.01 X10^3/uL; Eosinophils% 0.2 % (0-5); Hematocrit 38.5 % (40-54); Hemoglobin 11.8 g/dL (13.0-16.5); Lymphocyte # 0.53 X10^3/ul (0.83-4.51); Mean Corp Hgb Conc 30.6 g/dL (32-36); Mean Corpuscular Hgb 29.2 pg (27.0-32.0); Mean Corpuscular Volume 95.3 fL (80-94); Mean Platelet Vol. 9.3 fl (6.2-12.0); Monocyte# 0.38 X10^3/uL; Monocyte% 5.8 % (0-10); NRBC Flagged by Analyzer 0 % (0-5); Neutrophil # 5.63 X10^3/uL (2.7-7.7); Neutrophil % 85.3 % (47-70); POSITIVE DIFFERENTIAL YES; POSITIVE MORPHOLOGY YES; Platelet Count 192 K/mm3 (150-450); RBC Distribution Width CV 25.6 % (11.6-14.6); RBC Distribution Width SD 86.6 fl (35.1-43.9); Red Blood Count 4.04 M/mm3 (4.6-6.2); White Blood Count 6.6 K/mm3 (4.4-11.0)
[2022-11-28 17:07] LABS: Differential Indicated SCAN CRITERIA MET
[2022-11-28 17:32] LABS: Erythrocyte Sedimentation Rate 18 mm/hr (0-20)
[2022-11-28 17:50] LABS: Anion Gap 5 (5-15); BUN 13 mg/dL (7-18); BUN/Creat Ratio 14.7 RATIO (10-20); Calcium,Total 8.6 mg/dL (8.5-10.1); Chloride 103 mmol/L (98-107); Creatinine, Serum 0.88 mg/dL (0.70-1.30); EST Glomerular Filtration Rate 88 mL/min (>60); Est Glom Filt Rate - Afr Amer 107 mL/min (>60); Glucose 108 mg/dL (74-106); Potassium 4.3 mmol/L (3.5-5.1); Sodium Level 137 mmol/L (136-145)
[2022-11-28 17:51] LABS: CRP 6.82 mg/L (0.0-3.0)
[2022-11-28 17:54] LABS: ALB/GLOB Ratio 1.2 RATIO (0.9-2.4); AST(SGOT) 22 U/L (15-37); Alanine Aminotransfer ALT/SGPT 21 U/L (16-61); Albumin, Serum 3.6 g/dL (3.2-5.0); Alkaline Phosphatase 127 U/L (45-117); Anion Gap 3 (5-15); BUN 14 mg/dL (7-18); BUN/Creat Ratio 16.7 RATIO (10-20); Calcium,Total 8.6 mg/dL (8.5-10.1); Chloride 104 mmol/L (98-107); Creatinine, Serum 0.84 mg/dL (0.70-1.30); EST Glomerular Filtration Rate 93 mL/min (>60); Est Glom Filt Rate - Afr Amer 113 mL/min (>60); Ferritin 1800 ng/mL (26-388); Globulin 3.1 g/dL (2.2-4.2); Glucose 107 mg/dL (74-106); Iron 93 ug/dL (65-175); Iron Binding Capacity,Total 247 ug/dL (250-450); LDH 261 U/L (87-241); PERCENT IRON SATURATION 37.7 % (15.0-55.0); Potassium 4.2 mmol/L (3.5-5.1); Protein, Total 6.7 g/dL (6.4-8.2); Sodium Level 136 mmol/L (136-145)
[2022-12-01 15:08] LABS: ANTINUCLEAR ANTIBODIES DIRECT Negative (Negative)
[2022-12-06 11:09] LABS: CCP IgG Antibodies 6 units (0-19); HLA B27 Negative (.); Lyme Scn Total Ab w/Rflx Negative (Negative)
== END | disposition home or self-care (01) ==
LOC: LAB 16:40
PROVIDERS: Internal Medicine Medical Oncology; Nurse Practitioner Family; PCP Family Medicine; Referring Provider Orthopaedic Surgery; Visit Provider Orthopaedic Surgery
DX: I35.0 Nonrheumatic aortic (valve) stenosis (principal); I48.0 Paroxysmal atrial fibrillation; K21.9 Gastro-esophageal reflux disease without esophagitis; D50.0 Iron deficiency anemia secondary to blood loss (chronic); M19.90 Unspecified osteoarthritis, unspecified site
CPT/HCPCS: 36415; 80048; 80053; 81374; 82728; 83540; 83550; 83615; 85025; 85652; 86038; 86140; 86200; 86431; 86618

== ENCOUNTER → 2022-11-30 | Outpatient (CLI) | payer MEDICARE, SELFPAY ==
--- NOTE | 2022-11-30 08:16 | MRI_ITS ---
HISTORY: Pain TECHNIQUE: Multiplanar and multisequence MR images of the lumbar spine were obtained without intravenous contrast. 109 images. COMPARISON: XR 10/29/2022, 09/25/2020. FINDINGS: VERTEBRAE: L5 compression fracture with approximately 30% loss of height, mild retropulsion into the spinal canal, hypointense fracture line extending to the superior endplate, and moderate bone marrow edema. L3 compression fracture with approximately 20% loss of height, no significant retropulsion into the spinal canal, hypointense fracture line superiorly, and mild bone marrow edema. L2 compression fracture with approximately 30% loss of height, no significant retropulsion into the spinal canal, hypointense fracture line securely, and mild bone marrow edema. L1 compression fracture with approximately 30% loss of height, minimal retropulsion into the spinal canal, hypointense fracture line at the inferior endplate, and moderate bone marrow edema. Very mild T11 and T12 compression fractures with very mild edema along partial hypointense fracture lines. Degenerative bone marrow endplate changes with degenerative intervertebral disc signal at multiple levels. Mild fluid signal in the L1-2 vertebral disc with mild widening of the intervertebral disc space. Decompressive laminectomies of L2 and L3. ALIGNMENT: Chronic 5 mm anterolisthesis of L4-5 and scoliosis. SPINAL CANAL: Normal morphology and position of the conus medullaris at L1. Tortuosity and redundancy of the cauda equina nerve root secondary to spinal canal stenosis. No large epidural collection or gross ligamentous disruption. INTERVERTEBRAL DISCS: Posterior disc bulge osteophyte complexes with facet arthropathy at multiple levels. T12-L1: Mild central canal stenosis and bilateral foraminal narrowing based on the sagittal images. L1-2: Mild central canal stenosis and moderate bilateral foraminal narrowing. L2-3: Decompressive laminectomy. Residual degenerative change with minimal narrowing of the thecal sac. Moderate bilateral foraminal narrowing. L3-4: Decompressive laminectomy. Residual degenerative change with minimal narrowing of the thecal sac. Moderate-severe bilateral foraminal narrowing with probable right and possible left nerve root impingement. Abutment of the left L4 nerve root. L4-5: Severe central canal stenosis. Mild-moderate left and moderate right foraminal narrowing with bilateral L4 nerve root abutment. L5-S1: Mild central canal stenosis and mild-moderate left foraminal narrowing with left L5 nerve root abutment. SOFT TISSUES: Posterior subcutaneous and intramuscular edema. MRI/Spine Lumbar (Routine) IMPRESSION: Acute-subacute mild L1 and L5 compression fractures. Mild fluid signal in the L1-2 intervertebral disc with mild widening of the intervertebral disc space, favoring trauma over degenerative change. Subacute-chronic mild T11, T12, L2, and L3 compression fractures. 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 Electronically Signed: Danielle Diaz MD at 11:22 EDT ,
== END | disposition home or self-care (01) ==
LOC: MRI 09:50
PROVIDERS: PCP Family Medicine; Referring Provider Orthopaedic Surgery; Visit Provider Orthopaedic Surgery
DX: S32.000A Wedge compression fracture of unspecified lumbar vertebra, initial encounter for closed fracture (principal); X58.XXXA Exposure to other specified factors, initial encounter
CPT/HCPCS: 72148; A4216

== ENCOUNTER → 2022-12-08 | Outpatient (CLI) | payer MEDICARE, SELFPAY ==
--- NOTE | 2022-12-08 11:00 | BD_ITS ---
STUDY: DUAL ENERGY X-RAY ABSORPTIOMETRY / DXA REASON FOR EXAM: Male, 82 years old. Previous lumbar surgery TECHNIQUE: Bone Mineral Density (BMD) measurements of lumbar spine and bilateral hips were obtained. COMPARISON: None. FINDINGS: Lumbar Spine (L1-L4): g/cm2 (0.517) / T-score (-4.9) / Z-score (-3.7) Findings are suggestive of osteoporosis with a high fracture risk. Left Femur Total: g/cm2 (0.673) / T-score (-2.4) / Z-score (-1.3) Left Femoral Neck: g/cm2 (0.569) / T-score (-2.7) / Z-score (-1.1) Right Femur Total: g/cm2 (0.691) / T-score (-2.3) / Z-score (-1.2) Right Femoral Neck: g/cm2 (0.602) / T-score (-2.4) / Z-score (-0.9) BD/Dexa Bone Density Study IMPRESSION: The patient is considered osteoporotic as outlined below according to World Fidel Organization (WHO) criteria with a high fracture risk. Reference Information: The T-score is the number of standard deviations above or below the standard which is normal for young adults at their peak bone mineral density. The World Health Organization (WHO) interprets the T-scores as follows: Above -1 Normal bone density Between -1 and -2.5 Osteopenia Equal to / or below -2.5 Osteoporosis As a practical clinical guideline, osteopenia may be graded as follows: Mild -1 through -1.5 Moderate -1.6 through -2.0 Severe -2.1 through -2.4 The Z-score is the number of standard deviations above or below age-matched controls. A Z-score of less than -1.5 would be considered abnormal. References: 1. NIH Osteoporosis and Related Bone Diseases www osteo.org 2. International Society for Clinical Densitometry www iscd.org 3. National Osteoporosis Foundation www nof.org Electronically Signed: Nicko Yoon MD at 12:35 EDT ,
== END | disposition home or self-care (01) ==
LOC: OPBD 10:51
PROVIDERS: PCP Family Medicine; Referring Provider Orthopaedic Surgery; Visit Provider Orthopaedic Surgery
DX: M81.0 Age-related osteoporosis without current pathological fracture (principal)
CPT/HCPCS: 77080

== ENCOUNTER → 2022-12-29 | Outpatient (CLI) | payer MEDICARE, SELFPAY ==
[2022-12-29 13:44] LABS: Hematocrit 37.5 % (40-54); Hemoglobin 12.6 g/dL (13.0-16.5); Mean Corp Hgb Conc 33.6 g/dL (32-36); Mean Corpuscular Hgb 31.6 pg (27.0-32.0); Mean Platelet Vol. 9.6 fl (6.2-12.0); POSITIVE MORPHOLOGY YES; Platelet Count 193 K/mm3 (150-450); RBC Distribution Width CV 22.3 % (11.6-14.6); RBC Distribution Width SD 74.9 fl (35.1-43.9); Red Blood Count 3.99 M/mm3 (4.6-6.2); White Blood Count 8.3 K/mm3 (4.4-11.0)
[2022-12-29 13:50] LABS: Scan Indicated on CBC? Y/N YES- FLAGS NOTED
[2022-12-29 14:15] LABS: Anion Gap 5 (5-15); BUN 10 mg/dL (7-18); BUN/Creat Ratio 12.6 RATIO (10-20); Calcium,Total 8.9 mg/dL (8.5-10.1); Chloride 92 mmol/L (98-107); EST Glomerular Filtration Rate 100 mL/min (>60); Est Glom Filt Rate - Afr Amer 121 mL/min (>60); Glucose 104 mg/dL (74-106); Potassium 3.2 mmol/L (3.5-5.1); Sodium Level 131 mmol/L (136-145)
== END | disposition home or self-care (01) ==
PROVIDERS: PCP Family Medicine; Referring Provider Nurse Practitioner Family; Visit Provider Nurse Practitioner Family
DX: D50.0 Iron deficiency anemia secondary to blood loss (chronic) (principal); Z91.81 History of falling; S30.1XXA Contusion of abdominal wall, initial encounter; R60.0 Localized edema; I31.39 Other pericardial effusion (noninflammatory); R06.02 Shortness of breath; Z51.81 Encounter for therapeutic drug level monitoring; Z79.899 Other long term (current) drug therapy
CPT/HCPCS: 36415; 80048; 85027

== ENCOUNTER 2023-01-04 18:19 | Inpatient (IN) | payer MEDICARE, SELFPAY ==
[2023-01-04] VITALS (8 sets, daily range): BP systolic 113–134; BP diastolic 55–69; PULSE 74–81; RESP 15–19; TEMP 36.6–37.3; O2SAT 78–100; BMI 27.7
--- NOTE | 2023-01-04 19:11 | CT_ITS ---
STUDY: CT ABDOMEN AND PELVIS WITHOUT CONTRAST REASON FOR EXAM: Male, 82 years old. back pain RADIATION DOSAGE (If Supplied By Facility): CTDIvol = ( 8.65 ) mGy, DLP = ( 395.52 ) mGycm TECHNIQUE: Transaxial images were obtained from the dome of the diaphragm to the symphysis pubis without oral contrast, and without intravenous contrast. Sagittal and coronal images were reconstructed. Individualized dose optimization techniques were used for this CT. COMPARISON: None. FINDINGS: Mild bibasilar atelectasis.. Heart is enlarged and there is a small pericardial effusion.. Small hiatal hernia is noted There is asymmetric prominence of left lobe liver which is homogeneous attenuation. There is a small cyst in left lobe. The bile ducts are not dilated. Normal gallbladder not visualized possibly due to prior cholecystectomy or severely contracted state. Normal spleen. Normal pancreas. Normal bilateral adrenal glands. Normal right kidney. 2 tiny nonobstructing left renal calculi. Normal visualized stomach. Nonspecific ileus with diffuse fecal retention in the colon and rectal impaction. . Diverticular changes of the descending colon without evidence for acute diverticulitis. No evidence for acute appendicitis. Atherosclerotic changes of the aorta without evidence for aneurysm. Normal inferior vena cava. Normal retroperitoneum. Nonspecific markedly distended bladder Normal abdominal wall. Lumbar spine demonstrates degenerative changes. Old fractures of L1 and L5 status post kyphoplasty. Postop change status post bilateral laminectomy at L2-3 and L3-4. Grade 1 spondylolisthesis at L4-5 Mild wedging of the superior endplate of L2 and L3 most likely chronic however if concern for acute injury MRI recommended. CT/Abdomen/Pelvis without Cont IMPRESSION: Left nephrolithiasis without evidence for renal obstruction or ureteral calculus. Nonspecific ileus with diffuse fecal retention in colon and rectal impaction. Old compression fractures of L1 and L5 status post kyphoplasty.. Mild wedging of superior endplates of L2 and L3 of uncertain chronicity. If concern for acute fracture MRI recommended Other findings as above Electronically Signed: Ra Polo MD at 20:47 EDT ,
[2023-01-04 19:27] LABS: Absolute Lymphocyte Count 0.84 X10^3/uL (0.83-4.51); Basophil# 0.02 X10^3/uL; Basophil% 0.2 % (0-1); Eosinophil# 0.03 X10^3/uL; Eosinophils% 0.3 % (0-5); Hematocrit 39.6 % (40-54); Hemoglobin 12.9 g/dL (13.0-16.5); Lymphocyte # 0.84 X10^3/ul (0.83-4.51); Lymphocyte % 9.4 % (19-41); Mean Corp Hgb Conc 32.6 g/dL (32-36); Mean Corpuscular Hgb 30.9 pg (27.0-32.0); Mean Platelet Vol. 8.7 fl (6.2-12.0); Monocyte# 0.98 X10^3/uL; NRBC Flagged by Analyzer 0 % (0-5); Neutrophil # 6.98 X10^3/uL (2.7-7.7); Neutrophil % 78.7 % (47-70); POSITIVE MORPHOLOGY YES; Platelet Count 176 K/mm3 (150-450); RBC Distribution Width CV 21.7 % (11.6-14.6); RBC Distribution Width SD 75.3 fl (35.1-43.9); Red Blood Count 4.17 M/mm3 (4.6-6.2); White Blood Count 8.9 K/mm3 (4.4-11.0)
[2023-01-04 19:30] LABS: Differential Indicated SCAN CRITERIA MET
[2023-01-04] MEDS: 0.9% Normal Saline 1,000 ML 1000 ML IV (19:30)
[2023-01-04] MEDS: Ondansetron 4 MG/2 ML Vial IV (19:30)
[2023-01-04] MEDS: Morphine 4 MG/ML Syringe IV (19:31)
--- NOTE | 2023-01-04 19:42 | CT_ITS ---
STUDY: CT BRAIN WITHOUT CONTRAST REASON FOR EXAM: Male, 82 years old. confusion RADIATION DOSAGE (If Supplied By Facility): CTDIvol = ( 44.99 ) mGy, DLP = ( 796.11 ) mGycm TECHNIQUE: Transaxial CT imaging of the brain was performed without administration of intravenous contrast material. Individualized dose optimization techniques were used for this CT. COMPARISON: May 11, 2021 FINDINGS: Normal soft tissue structures. Normal calvarium. Calcific plaquing of the cavernous carotids and vertebral arteries Mild atrophy and advanced periventricular white matter ischemic changes. Normal basal ganglia and thalami. Normal brainstem. Normal cerebellum. Vertebrobasilar dolichoectasia consistent with systemic hypertension There is no intracranial hemorrhage. There are no findings of an acute ischemic infarction. Postsurgical changes of the orbits Mild mucosal thickening of right maxillary and bilateral ethmoid air cells. CT/Brain/Head without Contrast IMPRESSION: Mild atrophy and advanced periventricular white matter ischemic change. No acute bleed. If concern for acute infarct MRI recommended Electronically Signed: Ra Polo MD at 20:30 EDT ,
--- NOTE | 2023-01-04 19:43 | EKG12_ITS ---
Test Reason : FALL Blood Pressure : / mmHG Vent. Rate : 082 BPM Atrial Rate : 082 BPM P-R Int : 236 ms QRS Dur : 076 ms QT Int : 398 ms P-R-T Axes : 081 -35 034 degrees QTc Int : 464 ms Sinus rhythm with 1st degree A-V block Left axis deviation Septal infarct (cited on or before 12-AUG-2020) Inferior infarct , age undetermined Abnormal ECG Confirmed by FELIX PERALES, SREEKANTH ([id number]), food editor SASKIA SIU ([id number]) on 01/09/2023 8:07:36 AM Referred By: Confirmed By:SHAQUILLE WASHINGTON MD
--- NOTE | 2023-01-04 19:44 | EX.ED.DYSGE1 ---
HPI History of Present Illness Chief Complaint: Fall Narrative Narrative: 82-year-old male presenting after a fall. He states he fell about a week ago and sustained some rib fractures on the right. He had follow-up yesterday with Dr. Rust for a already scheduled kyphoplasty and had this performed. He went home and he was walking in his house and states he got his feet tangled up and he thought he was going to fall and tried to sit down and ended up landing on his buttocks. He states he was unable to get up off of the floor and stayed there all night since last evening. He states that he has not a bowel movement but urinated all over himself all night. He denies head injury but he is on Xarelto. No blurred vision, nausea, vomiting. He denies chest pain or palpitations. He states he is just too weak to get around at home and he lives alone. He has some bruising he notes to the right flank from falling. [facility] Medical History (Updated 01/04/23 @ 22:[address] Mi Gregory MD) Anemia Atherosclerotic heart disease of [place] coronary artery without angina pectoris Atrial fibrillation BPH (benign prostatic hyperplasia) Chronic edema Coronary artery disease Former smoker GERD (gastroesophageal reflux disease) History of heart attack History of stress test Lumbar spinal stenosis PAT (paroxysmal atrial tachycardia) Rheumatoid arthritis SVT (supraventricular tachycardia) Wears glasses Home Medications tamsulosin 0.4 mg capsule 0.4 mg PO DAILY@1800 Retention 07/18/20 [History Last Taken 10/20/22] folic acid 1 mg tablet 2 mg PO DAILY 09/28/20 [History Last Taken 10/20/22] finasteride 1 mg tablet 5 mg PO DAILY 12/30/20 [History Last Taken 10/20/22] multivitamin (Daily Multi-Vitamin tablet) 1 tab PO DAILY Check with primary doctor 01/01/21 [History Last Taken 10/20/22] aspirin 81 mg tablet,delayed release 81 mg PO DAILY #1 TAB 01/10/22 [Rx Last Taken 10/20/22] mirtazapine 15 mg tablet 15 mg PO QHS 01/10/22 [History Last Taken 10/19/22] vitamin B12 2,500 mcg-folic acid 400 mcg disintegrating tablet 1 tab PO DAILY Check with primary doctor 01/10/22 [History Last Taken 10/19/22] golimumab 12.5 mg/mL intravenous solution (Simponi ARIA) 12.5 mg IV .[id number] 05/31/22 [History Last Taken Unknown] buprenorphine 10 mcg/hour weekly transdermal patch 1 patch transdermal QWEEK pain 09/20/22 [History Last Taken 10/14/22] atorvastatin 40 mg tablet (Lipitor) 40 mg PO QHS Cholesterol #90 tabs 10/07/22 [Rx Last Taken 10/19/22] gabapentin 300 mg capsule 300 mg PO TID PRN PRN NERVE PAIN 10/20/22 [History Last Taken 10/20/22] rivaroxaban 20 mg tablet (Xarelto) 20 mg PO DAILY anticoagulation #1 TAB 10/21/22 [Rx Last Taken 10/19/22] amiodarone 200 mg tablet 200 mg PO DAILY heart rate #90 tabs 10/28/22 [Rx Last Taken Unknown] furosemide 40 mg tablet (Lasix) 80 mg (2 x 40 mg) PO DAILY 90 days #180 tabs 11/14/22 [Rx Last Taken Unknown] spironolactone 25 mg tablet 25 mg PO DAILY #30 tabs 11/14/22 [Rx Last Taken Unknown] trazodone 100 mg tablet 100 mg PO QHS Check with primary doctor 11/14/22 [History Last Taken Unknown] hydrocodone-acetaminophen 5-325mg 5mg-325mg 1 tab PO Q6H 11/25/22 [History Last Taken Unknown] polysaccharide iron complex 150 mg iron capsule (Ferrex) 150 mg PO DAILY 90 days #90 caps 12/14/22 [Rx Last Taken Unknown] prednisone 10 mg tablet 10 mg PO DAILY PRN RA FLARE UP 01/04/23 [History Last Taken Unknown] Allergy/AdvReac Type Severity Reaction Status Date / Time No Known Allergies Allergy Verified 01/04/23 18:20 Family History Father CVA (cerebral vascular accident) Brother CAD (coronary artery disease) CABG X 3 Mother CVA (cerebral vascular accident) Grandfather Cancer prostate Surgical History H/O colonoscopy H/O umbilical hernia repair History of cardiac catheterization History of coronary artery stent placement (08/06/20) History of coronary artery stent placement History of lumbar surgery Hx of colectomy Hx of laminectomy Hx of transurethral resection of prostate S/P appendectomy S/P cataract surgery S/P hemorrhoidectomy S/P inguinal hernia repair S/P laparoscopic cholecystectomy S/P left colectomy S/P rotator cuff repair S/P vasectomy Social History household members: none Smoking Status: Former smoker how long ago did patient quit smokin years ago alcohol intake: never substance use type: does not use diet: low salt caffeine: Yes Type: coffee Number of servings: 4 ROS ROS ED ROS Narrative Generalized weakness Constitutional Constitutional ED: Denies chills, fever(s) or sweats Eyes Eyes: Denies blurry vision or change in vision ENT ENT ED: Denies ear pain or sore throat Cardiovascular Cardiovascular: Denies chest pain, palpitations or racing heartbeat Respiratory/Chest Respiratory/Chest: Denies cough, dyspnea or sputum Gastrointestinal Gastrointestinal: Denies abdominal pain, constipation, diarrhea, nausea or vomiting Genitourinary Genitourinary ED: Denies dysuria, hematuria or urinary frequency Musculoskeletal Musculoskeletal: Reports back pain; Denies arthralgias, myalgias or neck pain Integumentary Reports other Details: Bruising to the right flank ; Denies abscess, Abrasions or rash Neurologic Neurologic: Denies headache(s), paresthesias or weakness Psychiatric Psychiatric: Denies anxiety, depression, suicidal ideation or suicidal thoughts Endocrine Endocrinology: Denies polydipsia or polyuria EXAM Physical Exam Const Vital Signs: 01/04/23 18:20 01/04/23 18:20 01/04/23 18:39 Temperature 98.9 F Temperature Source Oral Pulse Rate 81 Respiratory Rate 16 Respiratory Effort Normal Non-Labored Blood Pressure 134/69 H Blood Pressure Mean 90 Pulse Ox 95 Oxygen Delivery Method Room Air Oxygen Flow Rate (L/min) 01/04/23 19:30 01/04/23 19:44 01/04/23 20:19 Temperature Temperature Source Pulse Rate 74 81 Respiratory Rate 16 19 H Respiratory Effort Blood Pressure 125/64 H 125/59 H Blood Pressure Mean 84 81 Pulse Ox 78 99 100 Oxygen Delivery Method Room Air Nasal Cannula Nasal Cannula Oxygen Flow Rate (L/min) 2 2 01/04/23 19:33 Temperature Temperature Source Pulse Rate Respiratory Rate Respiratory Effort Blood Pressure Blood Pressure Mean Pulse Ox 78 Oxygen Delivery Method Room Air Oxygen Flow Rate (L/min) Positive well nourished HEENT Reports dry mucous membranes Negative for trauma Mouth ED: Yes dry mucous membranes Mouth: dry mucous membranes Eyes PERRL and EOMs intact bilaterally Neck no lymphadenopathy Resp normal respiratory effort and clear to auscultation bilaterally Auscultation: Negative for rales, rhonchi or wheezes Cardio regular rate and regular rhythm GI GI Narrative: To palpation over the right flank and there is some bruising noted here. Neuro oriented x3 and CN's II-XII intact bilaterally Sensorium / Orientation: alert Motor Exam: general weakness Psych mental status grossly normal MDM MDM MDM Narrative Medical decision making narrative: Patient presenting after fall which she describes as mechanical. He laid on the floor all night. He denies chest pain or shortness of breath. He denies abdominal pain. He is having back pain which is not new. He was unable to take any of his medicines last night or this morning. His daughter found him later today. Differential includes dehydration, electrolyte abnormalities, anemia, rhabdomyolysis, UTI, intracranial hemorrhage, compression fracture. Rib fractures, pneumothorax. CBC was obtained to assess white blood cell count, hemoglobin, platelets, differential. CMP to assess liver function, renal function, electrolytes, glucose. CPK was to assess for rhabdomyolysis. High-sensitivity troponin EKG to assess for ischemia, dysrhythmia. Urinalysis to assess for UTI chest x-ray to rule out pneumonia versus pneumothorax. CT abdomen pelvis was obtained without contrast to assess for compression fractures and injury due to bruising on the right side of his abdomen. He was given morphine and Zofran. CBC shows normal white blood cell count. Hemoglobin hematocrit are stable. Platelets are normal. Renal function electrolytes are within normal limits. Patient CPK was elevated at 2433. Alkaline phosphatase elevated at 193 and the rest of his liver enzymes are normal. Urinalysis negative for infection. CT brain was negative for acute findings. CT of the abdomen pelvis showed wedging at L2-L3 superior endplates of uncertain chronicity. Otherwise it showed previous compression fractures. Impression 1. History of compression fracture 2. Rhabdomyolysis 3. Mechanical fall 4. Debility Lab Data Attestation: I reviewed the patient's lab results. Labs: Laboratory Results - last 24 hr 01/04/23 01/04/23 19:20 20:10 WBC 8.9 RBC 4.17 L Hgb 12.9 L Hct 39.6 L MCV 95.0 H MCH 30.9 MCHC 32.6 RDW Std Deviation 75.3 H RDW Coeff of Jaciel 21.7 H Plt Count 176 MPV 8.7 Immature Gran % (Auto) 0.400 Neut % (Auto) 78.7 H Lymph % (Auto) 9.4 L Towns % (Auto) 11.0 H Eos % (Auto) 0.3 Baso % (Auto) 0.2 Absolute Neuts (auto) 7.0 Absolute Lymphs (auto) 0.84 Nucleated RBC % 0 Differential Comment SCANNED Sodium 137 Potassium 3.7 Chloride 100 Carbon Dioxide 31.0 Anion Gap 6 BUN 8 Creatinine 0.84 Est GFR (MDRD) Af Amer 112 Est GFR (MDRD) Non-Af 93 BUN/Creatinine Ratio 9.5 L Glucose 112 H Calcium 8.6 Total Bilirubin 0.90 AST 101 H ALT 49 Alkaline Phosphatase 193 H Total Creatine Kinase 2433 H Troponin I High Sens 55 Total Protein 6.1 L Albumin 3.0 L Globulin 3.1 Albumin/Globulin Ratio 1.0 Urine Color Yellow Urine Clarity Clear Urine pH 8.0 Ur Specific Bridger 1.010 Urine Protein 30 H Urine Glucose (UA) Normal Urine Ketones 15 H Urine Occult Blood Negative Urine Nitrite Negative Urine Bilirubin Negative Urine Urobilinogen Normal Ur Leukocyte Esterase Negative Urine RBC 0 SEEN Urine WBC 0 SEEN Ur Squamous Epith Cells 0 SEEN Urine Bacteria 0 SEEN Urine Mucus 0 SEEN Radiography Diagnostic Testing: Clinical Impression(s) from Imaging Studies Abdomen/Pelvis CT 01/04/23 19:11 IMPRESSION: Left nephrolithiasis without evidence for renal obstruction or ureteral calculus. Nonspecific ileus with diffuse fecal retention in colon and rectal impaction. Old compression fractures of L1 and L5 status post kyphoplasty.. Mild wedging of superior endplates of L2 and L3 of uncertain chronicity. If concern for acute fracture MRI recommended Other findings as above Electronically Signed: Ra Polo MD at 20:47 EDT , Brain CT 01/04/23 19:42 IMPRESSION: Mild atrophy and advanced periventricular white matter ischemic change. No acute bleed. If concern for acute infarct MRI recommended Electronically Signed: Ra Polo MD at 20:30 EDT , Chest X-Ray 01/04/23 19:50 IMPRESSION: Mild subsegmental atelectasis in the left lower lobe and possible tiny pleural effusion Electronically Signed: Ra Polo MD at 20:59 EDT , Discharge Plan Triage Chief Complaint: Fall ED Provider: Samm Womack Dx/Rx/DC Orders Primary Care Provider: Gloria Hazel
[2023-01-04 19:47] LABS: Differential Comment SCANNED
--- NOTE | 2023-01-04 19:50 | RAD_ITS ---
STUDY: X-RAY CHEST REASON FOR EXAM: Male, 82 years old. confusion TECHNIQUE: AP portable COMPARISON: None. FINDINGS: Mild subsegmental atelectasis in left lower lobe with possible tiny pleural effusion. Heart is enlarged.. Normal mediastinum and conrad. Normal visualized pulmonary arteries. Normal visualized aortic arch and descending thoracic aorta. Dorsal spine and shoulders demonstrate degenerative change. Normal visualized ribs, and clavicles There is no demonstrated abnormality of the visualized soft tissue structures of the upper abdomen. RAD/Chest 1 View (Portable) IMPRESSION: Mild subsegmental atelectasis in the left lower lobe and possible tiny pleural effusion Electronically Signed: Ra Polo MD at 20:59 EDT ,
[2023-01-04 20:17] LABS: Bacteria 0 SEEN /hpf (None Seen); Mucous, Urine 0 SEEN /hpf (<or=2+); Red Blood Cells-Urine 0 SEEN /hpf (0-5); Squamous Epithelial Cells - UA 0 SEEN /hpf (0-5); White Blood Cells 0 SEEN /hpf (0-5)
[2023-01-04 20:19] LABS: AST(SGOT) 101 U/L (15-37); Alanine Aminotransfer ALT/SGPT 49 U/L (16-61); Alkaline Phosphatase 193 U/L (45-117); Anion Gap 6 (5-15); BUN 8 mg/dL (7-18); BUN/Creat Ratio 9.5 RATIO (10-20); CPK Total, Creatine Kinase 2433 U/L (39-308); Calcium,Total 8.6 mg/dL (8.5-10.1); Chloride 100 mmol/L (98-107); Creatinine, Serum 0.84 mg/dL (0.70-1.30); EST Glomerular Filtration Rate 93 mL/min (>60); Est Glom Filt Rate - Afr Amer 112 mL/min (>60); Globulin 3.1 g/dL (2.2-4.2); Glucose 112 mg/dL (74-106); Potassium 3.7 mmol/L (3.5-5.1); Protein, Total 6.1 g/dL (6.4-8.2); Sodium Level 137 mmol/L (136-145); Troponin-I HS 55 pg/mL (3.0-78.0)
[2023-01-04 20:20] LABS: Color, Urine Yellow (Yellow); Glucose, Dipstick Normal (Normal); Ketone-Dipstick 15 mg/dl (Negative); Leukocyte Esterase-Dipstick Negative /ul (Negative); Nitrite-Dipstick Negative (Negative); Occult Blood-Urine Negative /ul (Negative); Protein-Dipstick 30 mg/dl (Negative); Urine Bilirubin Dipstick Negative (Negative); Urine Clarity Clear (Clear); Urine Urobilinogen Normal (Normal)
--- NOTE | 2023-01-04 21:15 | CM.ED ---
Social Work DC Planning Assessment: SW met with patient and patient?s daughter and introduced self and role as [facility] SW. Patient agreeable to speak with SW with his daughter present. Patient?s daughter voiced concerns for patient?s ability to care for himself as he fell last week and fell again last night and was on the floor until she checked on him today after work. Patient?s daughter reports decrease in ADLs. Patient reports he was encouraged to get a medical alert button and is starting services with the [facility]. SW then engaged patient and patient?s daughter in conversation to review recent transition planning/care coordination assessment for recent changes.?Pt alert, oriented x4 and agreeable to participating in assessment. Care providers, pharmacy,?and demographics verified. ? PCP: Ilir Specialists: Kg (GI), Erinn (director of safety), Barrera (pain), Deja (hematology), [facility] Preferred Pharmacy: [facility] Insurance: [facility] Prescription Benefit:?yes Living Will/HPOA: yes, HPOA daughter Melanie; Encouraged pt to bring in documents for inclusion in his medical record. LNOK: Daughter Melanie Living Arrangements: Pt lives alone in a two story home with a first floor set-up and one step to enter. Patient reports he is still independent with ADLs including self care and household tasks, however, patient?s daughter reports the patient has ?hoarder tendencies? with piles of items around the house. Patient?s daughter has been bringing the patient food and is unsure if patient is eating when she doesn?t provide food. Patient also hasn?t been showering or changing his clothes frequently. Patient?s daughter further states patient sleeps in his recliner chair and has had bed sores. Pt's neighbor's son mows the yard. Pt states he manages his own medications and has a system to know what to take when, patient?s daughter also assists. Transportation: Patient?s daughter reports the patient is unable to drive as he was having to manually lift his legs between pedals. Patient?s daughter assists with transportation needs. DME: cane, shower chair, grab bars, hand held shower, BP monitor SNF/HHC: TCU Patient is currently agreeable to go to TCU as he has been there before and declined a list of SNF providers in network with patient?s insurance. KAITY then reviewed medical alert resources, [facility], [facility] as well as [facility] information with patient?s daughter as patient?s daughter reports being unfamiliar with their services. Patient?s daughter reports she planned to contact [facility]. SW provided emotional support and encouragement for SNF as well as follow up with [facility] as they could offer more services for the patient if he qualifies. Patient and patient?s daughter voice understanding. KAITY informed TCU admissions staff of patient?s interest. ? Plan: TCU pending acceptance and precert Dorita GRAHAM, [employer] ?
--- NOTE | 2023-01-04 21:25 | PCM.HP.STD ---
HPI - General General Date of Admission: 01/04/23 Date of Service: 01/04/23 Chief Complaint: Fall, debility. HPI Narrative The patient is an 82 y/o M w/ PMHx: BPH, HTN, HLD, Anxiety and Depression, Diastolic CHF, PAF, Rheumatoid arthritis, CAD with PCI x 2, Chronic back pain with lumbar stenosis s/p kyphoplasty prior on buprenorphine patch, Former tobacco use, Chronic peripheral edema, Chronic normocytic anemia/Fe deficiency anemia reported to be refractory to oral Fe on injectafer following with Dr. Short hematology w/ Hx GI bleed w/ gastric AVM who presents to the [facility] ED on 01/04/23 with history of fall approximately 1 week prior to current presentation with unfortunately rib fractures at that time with a follow-up the day prior to current presentation with pain management with kyphoplasty performed and unfortunately when he returned home and was walking to his house he tripped and attempted to sit down landing on his buttock and was unable to get off the floor at that time and stayed there all evening reportedly urinating all over himself with no specific trauma to the head or any loss of consciousness with significant weakness prompting eventual EMS call once he was found and transition to the ED for evaluation. He does report significant lumbar back pain since his recent fall and being on the ground initially 10 out of 10 in severity, sharp and aching with any movement and dull throbbing constantly even when not moving now down to 8 out of 10. Workup in the ED included T98.9, heart rate 81, BP 134/69, respiratory rate 16, initially 95% on room air however after medications desaturated to 78% on room air with improvement to 100% on 2 L nasal cannula, CBC with WC 8.9, hemoglobin 12.9, MCV 95, platelet 176 without marked shift, CMP with glucose 112, T. bili 0.9, AST/LT 101/49, alk phos 193, total creatinine kinase 2433, urinalysis with urine protein 30, ketone 15 otherwise unremarkable, chest x-ray with mild segmental atelectasis left lower lobe possibly a tiny pleural effusion, CT of the brain with mild atrophy and advanced periventricular white matter ischemic change, CT abdomen and pelvis without contrast with left nephrolithiasis without any evidence of renal obstruction or ureteral calculus, nonspecific ileus with diffuse fecal retention in the colon and rectal impaction, old compression fracture L1 and L5 status post kyphoplasty, mild wedging of the superior endplates L2 and L3 of uncertain chronicity, troponin 55. In the ED patient administered Zofran 4 mg IV x 1, morphine 4 mg IV x 1 as well as 1 L normal saline. [facility] Medical History (Updated 01/04/23 @ 22:[address] Mi Gregory MD) Anemia Atherosclerotic heart disease of [place] coronary artery without angina pectoris Atrial fibrillation BPH (benign prostatic hyperplasia) Chronic edema Coronary artery disease Former smoker GERD (gastroesophageal reflux disease) History of heart attack History of stress test Lumbar spinal stenosis PAT (paroxysmal atrial tachycardia) Rheumatoid arthritis SVT (supraventricular tachycardia) Wears glasses Home Medications tamsulosin 0.4 mg capsule 0.4 mg PO DAILY@1800 Retention 07/18/20 [History Last Taken 10/20/22] folic acid 1 mg tablet 2 mg PO DAILY 09/28/20 [History Last Taken 10/20/22] finasteride 1 mg tablet 5 mg PO DAILY 12/30/20 [History Last Taken 10/20/22] multivitamin (Daily Multi-Vitamin tablet) 1 tab PO DAILY Check with primary doctor 01/01/21 [History Last Taken 10/20/22] aspirin 81 mg tablet,delayed release 81 mg PO DAILY #1 TAB 01/10/22 [Rx Last Taken 10/20/22] mirtazapine 15 mg tablet 15 mg PO QHS 01/10/22 [History Last Taken 10/19/22] vitamin B12 2,500 mcg-folic acid 400 mcg disintegrating tablet 1 tab PO DAILY Check with primary doctor 01/10/22 [History Last Taken 10/19/22] golimumab 12.5 mg/mL intravenous solution (Simponi ARIA) 12.5 mg IV .[id number] 05/31/22 [History Last Taken Unknown] buprenorphine 10 mcg/hour weekly transdermal patch 1 patch transdermal QWEEK pain 09/20/22 [History Last Taken 10/14/22] atorvastatin 40 mg tablet (Lipitor) 40 mg PO QHS Cholesterol #90 tabs 10/07/22 [Rx Last Taken 10/19/22] gabapentin 300 mg capsule 300 mg PO TID PRN PRN NERVE PAIN 10/20/22 [History Last Taken 10/20/22] rivaroxaban 20 mg tablet (Xarelto) 20 mg PO DAILY anticoagulation #1 TAB 10/21/22 [Rx Last Taken 10/19/22] amiodarone 200 mg tablet 200 mg PO DAILY heart rate #90 tabs 10/28/22 [Rx Last Taken Unknown] furosemide 40 mg tablet (Lasix) 80 mg (2 x 40 mg) PO DAILY 90 days #180 tabs 11/14/22 [Rx Last Taken Unknown] spironolactone 25 mg tablet 25 mg PO DAILY #30 tabs 11/14/22 [Rx Last Taken Unknown] trazodone 100 mg tablet 100 mg PO QHS Check with primary doctor 11/14/22 [History Last Taken Unknown] hydrocodone-acetaminophen 5-325mg 5mg-325mg 1 tab PO Q6H 11/25/22 [History Last Taken Unknown] polysaccharide iron complex 150 mg iron capsule (Ferrex) 150 mg PO DAILY 90 days #90 caps 12/14/22 [Rx Last Taken Unknown] prednisone 10 mg tablet 10 mg PO DAILY PRN RA FLARE UP 01/04/23 [History Last Taken Unknown] Allergy/AdvReac Type Severity Reaction Status Date / Time No Known Allergies Allergy Verified 01/04/23 18:20 Family History Father CVA (cerebral vascular accident) Brother CAD (coronary artery disease) CABG X 3 Mother CVA (cerebral vascular accident) Grandfather Cancer prostate Surgical History H/O colonoscopy H/O umbilical hernia repair History of cardiac catheterization History of coronary artery stent placement (08/06/20) History of coronary artery stent placement History of lumbar surgery Hx of colectomy Hx of laminectomy Hx of transurethral resection of prostate S/P appendectomy S/P cataract surgery S/P hemorrhoidectomy S/P inguinal hernia repair S/P laparoscopic cholecystectomy S/P left colectomy S/P rotator cuff repair S/P vasectomy Social History household members: none Smoking Status: Former smoker how long ago did patient quit smokin years ago alcohol intake: never substance use type: does not use diet: low salt caffeine: Yes Type: coffee Number of servings: 4 ROS ROS Narrative Admission Review of Systems: CONSTITUTIONAL: No weight loss, fever, chills, + weakness or fatigue. HEENT: Eyes: No visual loss, blurred vision, double vision or yellow sclerae. Ears, Nose, Throat: No hearing loss, sneezing, congestion, runny nose or sore throat. SKIN: + coccyx stage I decub, BL LE venous stasis changes, various staged ecchymoses, status post recent lumbar laminectomy. CARDIOVASCULAR: No chest pain, chest pressure or chest discomfort, palpitations, edema, orthopnea, syncopal events. RESPIRATORY: No shortness of breath, cough or sputum, wheezing, hemoptysis. GASTROINTESTINAL: + anorexia, nausea. No vomiting or diarrhea, abdominal pain, melena, BRBPR. GENITOURINARY: No dysuria, frequency, urgency or retention. NEUROLOGICAL: + Recent lumbar laminectomy s/p fall w/ notable general debility. No headache, dizziness, syncope, paralysis, ataxia, numbness or tingling in the extremities, focal weakness, change in bowel or bladder control, seizure. MUSCULOSKELETAL: + muscle, back pain, joint pain or stiffness. HEMATOLOGIC: + anemia, easy bleeding and bruising. LYMPHATICS: No enlarged nodes. No history of splenectomy. PSYCHIATRIC: + history of depression or anxiety. ENDOCRINOLOGIC: No reports of sweating, cold or heat intolerance. No polyuria or polydipsia. ALLERGIES: No history of asthma, hives, eczema or rhinitis. Vital Signs Vital Signs Vital Signs: 01/04/23 18:20 01/04/23 18:20 01/04/23 18:39 Temperature 98.9 F Temperature Source Oral Pulse Rate 81 Respiratory Rate 16 Respiratory Effort Normal Non-Labored Blood Pressure 134/69 H Blood Pressure Mean 90 Pulse Ox 95 Oxygen Delivery Method Room Air Oxygen Flow Rate (L/min) 01/04/23 19:30 01/04/23 19:44 01/04/23 20:19 Temperature Temperature Source Pulse Rate 74 81 Respiratory Rate 16 19 H Respiratory Effort Blood Pressure 125/64 H 125/59 H Blood Pressure Mean 84 81 Pulse Ox 78 99 100 Oxygen Delivery Method Room Air Nasal Cannula Nasal Cannula Oxygen Flow Rate (L/min) 2 2 01/04/23 19:33 Temperature Temperature Source Pulse Rate Respiratory Rate Respiratory Effort Blood Pressure Blood Pressure Mean Pulse Ox 78 Oxygen Delivery Method Room Air Oxygen Flow Rate (L/min) Physical Exam Narrative Physical Examination: General: Awake, alert, oriented x 3 and cooperative, laying in the ED bed, T, uncomfortable appearing, reports his pain currently out of 10 in the lumbar region. Skin: Normal color, normal turgor, no icterus, no cyanosis except for early stage coccyx/decubitus ulcer, bilateral lower extremity venous stasis skin changes, very staged ecchymoses with recent falls, status post recent lumbar laminectomy. HEENT: AT/NC, EOMI, PERRLA, dry MM, no carotid bruits or JVD noted. Lungs: Diminished, good bases, appropriate effort, no rales, ronchi or wheezing. Heart: Currently regular rate and rhythm; no gallop, rub audible, + SM. Abdomen: Soft, NTTP, ND, hyperactive BS, no HSM. Extremities: No cyanosis, no clubbing, significant pedal to proximal knee 3+ pitting edema which she reports is chronic. Neurological: Patient awake, alert, oriented as noted, cognitive function intact; pupils equally reactive to light and accommodation, cranial nerves grossly normal, moving all 4 extremities except extremely limited given recent fall as well as recent lumbar compression fractures status post laminectomy, no specific focal deficits, strength severely globally decreased. Psychiatric: Affect appears fatigued, uncomfortable, no acute evidence of depressive or anxiety feelings but does have underlying history. Results Lab / Micro Data 01/04/23 19:20 01/04/23 19:20 Labs: Laboratory Results - last 24 hr 01/04/23 19:20: WBC 8.9, RBC 4.17 L, Hgb 12.9 L, Hct 39.6 L, MCV 95.0 H, MCH 30.9, MCHC 32.6, RDW Std Deviation 75.3 H, RDW Coeff of Jaciel 21.7 H, Plt Count 176, MPV 8.7, Immature Gran % (Auto) 0.400, Neut % (Auto) 78.7 H, Lymph % (Auto) 9.4 L, Bacon % (Auto) 11.0 H, Eos % (Auto) 0.3, Baso % (Auto) 0.2, Absolute Neuts (auto) 7.0, Absolute Lymphs (auto) 0.84, Nucleated RBC % 0, Differential Comment SCANNED, Sodium 137, Potassium 3.7, Chloride 100, Carbon Dioxide 31.0, Anion Gap 6, BUN 8, Creatinine 0.84, Est GFR (MDRD) Af Amer 112, Est GFR (MDRD) Non-Af 93, BUN/Creatinine Ratio 9.5 L, Glucose 112 H, Calcium 8.6, Total Bilirubin 0.90, AST 101 H, ALT 49, Alkaline Phosphatase 193 H, Total Creatine Kinase 2433 H, Troponin I High Sens 55, Total Protein 6.1 L, Albumin 3.0 L, Globulin 3.1, Albumin/Globulin Ratio 1.0 01/04/23 20:10: Urine Color Yellow, Urine Clarity Clear, Urine pH 8.0, Ur Specific [place] 1.010, Urine Protein 30 H, Urine Glucose (UA) Normal, Urine Ketones 15 H, Urine Occult Blood Negative, Urine Nitrite Negative, Urine Bilirubin Negative, Urine Urobilinogen Normal, Ur Leukocyte Esterase Negative, Urine RBC 0 SEEN, Urine WBC 0 SEEN, Ur Squamous Epith Cells 0 SEEN, Urine Bacteria 0 SEEN, Urine Mucus 0 SEEN Radiology Impression Abdomen/Pelvis CT 01/04/23 19:11 IMPRESSION: Left nephrolithiasis without evidence for renal obstruction or ureteral calculus. Nonspecific ileus with diffuse fecal retention in colon and rectal impaction. Old compression fractures of L1 and L5 status post kyphoplasty.. Mild wedging of superior endplates of L2 and L3 of uncertain chronicity. If concern for acute fracture MRI recommended Other findings as above Electronically Signed: Ra Polo MD at 20:47 EDT , Brain CT 01/04/23 19:42 IMPRESSION: Mild atrophy and advanced periventricular white matter ischemic change. No acute bleed. If concern for acute infarct MRI recommended Electronically Signed: Ra Polo MD at 20:30 EDT , Chest X-Ray 01/04/23 19:50 IMPRESSION: Mild subsegmental atelectasis in the left lower lobe and possible tiny pleural effusion Electronically Signed: Ra Polo MD at 20:59 EDT , Assessment & Plan Assessment/Plan (1) Rhabdomyolysis: PLAN: Plan The patient is an 82 y/o M w/ PMHx: BPH, HTN, HLD, Anxiety and Depression, Diastolic CHF, PAF, Rheumatoid arthritis, CAD with PCI x 2, Chronic back pain with lumbar stenosis s/p kyphoplasty prior on buprenorphine patch, Former tobacco use, Chronic peripheral edema, Chronic normocytic anemia/Fe deficiency anemia reported to be refractory to oral Fe on injectafer following with Dr. Short hematology w/ Hx GI bleed w/ gastric AVM who presents to the [facility] ED on 01/04/23 with history of fall approximately 1 week prior to current presentation with unfortunately rib fractures at that time with a follow-up the day prior to current presentation with pain management with kyphoplasty performed and unfortunately when he returned home and was walking to his house he tripped and attempted to sit down landing on his buttock and was unable to get off the floor at that time and stayed there all evening reportedly urinating all over himself with no specific trauma to the head or any loss of consciousness with significant weakness prompting eventual EMS call once he was found and transition to the ED for evaluation. #1. Mechanical fall complicated by recent fall of with right-sided rib fractures and chronic debility with lumbar compression fractures known previously status post recent kyphoplasty with associated intractable lumbar back pain following recent fall with associated acute rhabdomyolysis and adult FTT: Will admit to medical surgical floor, maintain on fall precautions, continue judicious hydration given underlying history of CHF, monitor for fluid overload, will trend creatinine kinase, monitor urine output, monitor both renal and liver function, maintain on fall precautions, offload and frequent positional changes given recent intervention to the back, PT/OT/case management consulted for discharge planning as patient likely would benefit from consideration of skilled at this time. #2. History of GI bleed: History of recent 09/2022 admission with GI bleed at that time, workup notable for gastric AVM, evaluated by hematology with noted refractory status to oral iron eventually placed on IV injectafer as noted, eventually allowed to resume patient chronic anticoagulant therapy, will continue closely monitor. #3. Chronic primarily normocytic anemia, currently mildly elevated MCV/macrocytic: Admission hemoglobin 12.9, baseline hemoglobin more recently similar 11-12 range, most recently 12/29/2022 hemoglobin 12.6, will continue to trend. #4. Chronic pain syndrome secondary to chronic back pain status post recent kyphoplasty with lumbar compressions: Patient with chronic debility, associated with his chronic back pain, prior was on chronic buprenorphine patch but from records appears to recently have been transitioned to oral norco instead, will continue as well as chronic gabapentin regimen with breakthrough regimen as needed. Encourage continued follow-up outpatient with Dr. Rust as previously arranged following recent procedure. Given his acute presentation with worsened pain secondary to #1 will have as needed oxycodone and overlap breakthrough IV pain regimen also. #5. Chronic diastolic CHF: As noted given presentation will judiciously hydrate and closely monitor for any overload, will continue aspirin, Xarelto, metolazone, spironolactone, Lasix, statin therapy, not on beta-santiago per review of current list. Pending repeat AM labs and status upon re-evaluation may certainly hold diuretics if needed given hydration needs with #1 as noted. #6. PSVT/PAF: We will continue patient home Xarelto regimen in addition to chronic amiodarone regimen. #7. Chronic peripheral edema: Will place snug vicky wraps with lower extremity elevation as lumbar back allows given recent intervention with kyphoplasty. #8. CAD: s/p PCI x 2, will continue aspirin and Xarelto home regimen, continue statin, not on VICKY inhibitor/ARB nor beta-santiago therapy. #9. Hypertension: Continue home regimen including metolazone, spironolactone, Lasix with hold parameters as needed, PRN hydralazine. #10. Hyperlipidemia: Not on statin therapy, defer to outpatient. #11. Anxiety and depression: Will continue patient home mirtazapine regimen. #12. BPH: We will continue patient home Flomax and finasteride regimen. #13. Rheumatoid arthritis: Patient is on chronic golimumab outpatient and chronic low-dose steroids PRN only per current medication list but clarifying. #14. Former tobacco use: Encourage continued tobacco cessation. #15. DVT prophylaxis: We will continue patient home Xarelto regimen. #16. CODE status: Patient GIA is his daughter who is present and living will is currently in place. Discussed CODE status at length including difference between FULL code, DNR-CCA and DNR-CC status. Following discussions about the differences in these status, requested DNR-CCA, no intubation. His daughter and him per their report had actually not discussed these items prior. Encouraged them to openly discuss. Advanced Care Planning Face to Face Time: 16 minutes. Charges/Coding Visit Charges Inpatient E&M: 21473 Init Hosp L3 Procedures Hospitalists Procedures: 40192 Advncd Care Plan 30 Min
[2023-01-04] MEDS: 0.9% Normal Saline 1,000 ML 125 ML IV (22:05)
[2023-01-04] MEDS: 0.9% Normal Saline 1,000 ML 100 ML IV (22:50)
[2023-01-04] MEDS: Menthol/Lanolin/Calamine/Znox 113 GM Tube 1 APPLIC TOPICAL (22:51)
[2023-01-04] MEDS: traZODone 100 MG Tablet PO (22:55)
[2023-01-04] MEDS: Mirtazapine 15 MG Tablet PO (22:56)
[2023-01-04] MEDS: Atorvastatin Calcium 40 MG Tablet PO (22:56)
[2023-01-04] MEDS: oxyCODONE 5 MG Tablet PO (23:05)
[2023-01-04 23:33] LABS: Troponin-I HS 60 pg/mL (3.0-78.0)
[2023-01-05] VITALS (10 sets, daily range): BP systolic 87–114; BP diastolic 48–61; PULSE 63–81; RESP 16–17; TEMP 36.7–37.2; O2SAT 88–96; BMI 27.3
[2023-01-05 06:03] LABS: Absolute Lymphocyte Count 0.82 X10^3/uL (0.83-4.51); Absolute Neutrophil Count 5.3 X10^3/uL (2.0-7.7); Basophil# 0.03 X10^3/uL; Basophil% 0.4 % (0-1); Eosinophil# 0.11 X10^3/uL; Eosinophils% 1.5 % (0-5); Hematocrit 34.4 % (40-54); Hemoglobin 10.9 g/dL (13.0-16.5); Lymphocyte # 0.82 X10^3/ul (0.83-4.51); Lymphocyte % 11.3 % (19-41); Mean Corp Hgb Conc 31.7 g/dL (32-36); Mean Corpuscular Volume 97.7 fL (80-94); Mean Platelet Vol. 9.2 fl (6.2-12.0); Monocyte# 0.92 X10^3/uL; Monocyte% 12.7 % (0-10); NRBC Flagged by Analyzer 0 % (0-5); Neutrophil # 5.31 X10^3/uL (2.7-7.7); Neutrophil % 73.5 % (47-70); POSITIVE MORPHOLOGY YES; Platelet Count 163 K/mm3 (150-450); RBC Distribution Width CV 22.2 % (11.6-14.6); RBC Distribution Width SD 78.5 fl (35.1-43.9); Red Blood Count 3.52 M/mm3 (4.6-6.2); White Blood Count 7.2 K/mm3 (4.4-11.0)
[2023-01-05 06:14] LABS: Differential Indicated SCAN CRITERIA MET
[2023-01-05 07:08] LABS: Macrocytosis 1+
[2023-01-05 07:09] LABS: Anisocytosis 2+
[2023-01-05 07:21] LABS: ALB/GLOB Ratio 0.9 RATIO (0.9-2.4); AST(SGOT) 76 U/L (15-37); Alanine Aminotransfer ALT/SGPT 41 U/L (16-61); Albumin, Serum 2.4 g/dL (3.2-5.0); Alkaline Phosphatase 148 U/L (45-117); Anion Gap 4 (5-15); BUN 6 mg/dL (7-18); BUN/Creat Ratio 9.9 RATIO (10-20); CPK Total, Creatine Kinase 1656 U/L (39-308); Chloride 106 mmol/L (98-107); Creatinine, Serum 0.61 mg/dL (0.70-1.30); EST Glomerular Filtration Rate 136 mL/min (>60); Est Glom Filt Rate - Afr Amer 164 mL/min (>60); Estimated Creatinine Clearance 41.67 ml/min; Globulin 2.8 g/dL (2.2-4.2); Glucose 89 mg/dL (74-106); Potassium 3.3 mmol/L (3.5-5.1); Protein, Total 5.2 g/dL (6.4-8.2); Sodium Level 141 mmol/L (136-145)
--- NOTE | 2023-01-05 07:23 | PN.HOSP_ITS ---
Reason for Visit Reason for Visit: Fall/debility Subjective Subjective Mr. Rodriguez is an 82-year-old white male who presented to the emergency department at [facility] on 01/04/2023 with history of a fall approximately 1 week prior to presentation. He had rib fractures that were diagnosed at that time and follow-up with pain management for kyphoplasty which was performed. Unfortunately when he returned home he was walking into his house and tripped. He landed on his buttocks and was unable to get up off the floor and was there all evening. He was eventually found and EMS was called and he was brought to the emergency department for further evaluation. He had significant low back pain since falling that he reported initially at 10 out of 10 in severity and reported sharp with aching during movement and a dull throbbing constant ache. Initial vital signs were unremarkable however after narcotics were given for pain he desatted with oxygen saturations in the 78 on room air with improvement to 100% on 2 L nasal cannula. His CBC was unremarkable. His chemistry panel was unremarkable. His CK was elevated at 2433. UA showed some mild proteinuria and ketones but was otherwise unremarkable. Chest x-ray showed mild segmental atelectasis and possible small pleural effusion in the left lower lobe. CT of the brain showed chronic changes noting atrophy and advanced periventricular white matter ischemic changes. CT of the abdomen pelvis without contrast showed left nephrolithiasis without evidence of obstruction, nonspecific ileus with diffuse fecal retention in the colon and rectal impaction as well as old compression fracture at L1 and L5 status post kyphoplasty and mild wedging of superior endplates of L2 and L3. Initial troponin was 55. In the emergency department he was treated with antiemetics, pain medication, and 1 L of normal saline. He was admitted to medical floor for ongoing care and possible placement. Patient states he is feeling okay this morning but does note that he needs more therapy and is agreeable to placement at discharge. Prefers to go to the transitional care unit and this has been initiated. Denies any current needs. Objective Data Objective Data Vital Signs: Vital Signs Temp Pulse Resp BP Pulse Ox O2 Del Method O2 Flow Rate 98.5 F 81 16 111/52 L 96 Nasal Cannula 2 01/05/23 04:23 01/05/23 04:23 01/05/23 04:23 01/05/23 04:23 01/05/23 04:23 01/05/23 04:30 01/05/23 04:30 Oxygen Flow Rate (L/min) 2 Oxygen Delivery Method Nasal Cannula Weight: 64.5 kg Body Mass Index (BMI) 27.7 Intake & Output: Intake and Output for Last 24 Hours 01/03/23 01/04/23 01/05/23 23:59 23:59 23:59 Intake Total 1127.08 / 1127.08 Output Total 150 / 150 500 / 500 Balance 977.08 / 977.08 -500 / -500 Lab / Micro Data 01/05/23 13:55 01/05/23 04:56 Labs: Laboratory Results - last 24 hr 01/04/23 19:20: WBC 8.9, RBC 4.17 L, Hgb 12.9 L, Hct 39.6 L, MCV 95.0 H, MCH 30.9, MCHC 32.6, RDW Std Deviation 75.3 H, RDW Coeff of Jaciel 21.7 H, Plt Count 176, MPV 8.7, Immature Gran % (Auto) 0.400, Neut % (Auto) 78.7 H, Lymph % (Auto) 9.4 L, Gray % (Auto) 11.0 H, Eos % (Auto) 0.3, Baso % (Auto) 0.2, Absolute Neuts (auto) 7.0, Absolute Lymphs (auto) 0.84, Nucleated RBC % 0, Differential Comment SCANNED, Sodium 137, Potassium 3.7, Chloride 100, Carbon Dioxide 31.0, Anion Gap 6, BUN 8, Creatinine 0.84, Est GFR (MDRD) Af Amer 112, Est GFR (MDRD) Non-Af 93, BUN/Creatinine Ratio 9.5 L, Glucose 112 H, Calcium 8.6, Total Bilirubin 0.90, T 101 H, ALT 49, Alkaline Phosphatase 193 H, Total Creatine Kinase 2433 H, Troponin I High Sens 55, Total Protein 6.1 L, Albumin 3.0 L, Globulin 3.1, Albumin/Globulin Ratio 1.0 01/04/23 20:10: Urine Color Yellow, Urine Clarity Clear, Urine pH 8.0, Ur Specific Clarence 1.010, Urine Protein 30 H, Urine Glucose (UA) Normal, Urine Ketones 15 H, Urine Occult Blood Negative, Urine Nitrite Negative, Urine Bilirubin Negative, Urine Urobilinogen Normal, Ur Leukocyte Esterase Negative, Urine RBC 0 SEEN, Urine WBC 0 SEEN, Ur Squamous Epith Cells 0 SEEN, Urine Bacteria 0 SEEN, Urine Mucus 0 SEEN 01/04/23 23:07: Troponin I High Sens 60 01/05/23 04:56: WBC 7.2, RBC 3.52 L, Hgb 10.9 L, Hct 34.4 L, MCV 97.7 H, MCH 31.0, MCHC 31.7 L, RDW Std Deviation 78.5 H, RDW Coeff of Jaciel 22.2 H, Plt Count 163, MPV 9.2, Immature Gran % (Auto) 0.600, Neut % (Auto) 73.5 H, Lymph % (Auto) 11.3 L, Gray % (Auto) 12.7 H, Eos % (Auto) 1.5, Baso % (Auto) 0.4, Absolute Neuts (auto) 5.3, Absolute Lymphs (auto) 0.82 L, Nucleated RBC % 0, Anisocytosis 2+, Macrocytosis 1+, Sodium 141, Potassium 3.3 L, Chloride 106, Carbon Dioxide 31.0, Anion Gap 4 L, BUN 6 L, Creatinine 0.61 L, Estim Creat Clear Calc 41.67, Est GFR (MDRD) Af Amer 164, Est GFR (MDRD) Non-Af 136, BUN/Creatinine Ratio 9.9 L, Glucose 89, Calcium 8.0 L, Total Bilirubin 0.60, AST 76 H, ALT 41, Alkaline Phosphatase 148 H, Total Creatine Kinase 1656 H, Total Protein 5.2 L, Albumin 2.4 L, Globulin 2.8, Albumin/Globulin Ratio 0.9 Radiography Diagnostic Testing: Radiology Impression Abdomen/Pelvis CT 01/04/23 19:11 IMPRESSION: Left nephrolithiasis without evidence for renal obstruction or ureteral calculus. Nonspecific ileus with diffuse fecal retention in colon and rectal impaction. Old compression fractures of L1 and L5 status post kyphoplasty.. Mild wedging of superior endplates of L2 and L3 of uncertain chronicity. If concern for acute fracture MRI recommended Other findings as above Electronically Signed: Ra Polo MD at 20:47 EDT , Brain CT 01/04/23 19:42 IMPRESSION: Mild atrophy and advanced periventricular white matter ischemic change. No acute bleed. If concern for acute infarct MRI recommended Electronically Signed: Ra Polo MD at 20:30 EDT , Chest X-Ray 01/04/23 19:50 IMPRESSION: Mild subsegmental atelectasis in the left lower lobe and possible tiny pleural effusion Electronically Signed: Ra Polo MD at 20:59 EDT , Physical Exam Const alert, oriented x3, no apparent distress, average body habitus and well nourished Constitutional Narrative: Elderly white male sitting up in a chair at the bedside watching television, appears comfortable and nontoxic HEENT head/scalp atraumatic and moist oral mucous membranes HEENT Narrative: Dentition is poor, Mallampati is 2, no thrush Head and Scalp: normocephalic Eyes PERRL, EOMs intact bilaterally and conjunctivae normal Eyes Narrative: No scleral icterus Neck no lymphadenopathy and supple Neck Narrative: Trachea midline, no enlargement Resp normal respiratory effort, no retractions, no use of accessory muscles and No clear to auscultation bilaterally Resp Narrative: Crackles at bases bilaterally Auscultation: crackles; Negative for rhonchi or wheezes Cardio regular rate, regular rhythm, S1 normal heart sound, S2 normal heart sound, no rub, no gallops and no clicks; Negative for no murmurs Cardio Narrative: 3 out of 6 systolic murmur loudest at right upper sternal border GI normal to inspection, nondistended, normoactive bowel sounds, soft to palpation and non-tender Extremity Extremity Narrative: 2+ pitting edema at the distal lower extremities-patient states these are much better than they typically are, no clubbing or cyanosis Skin no rashes or lesions noted, skin turgor normal, no jaundice, no petechiae and no mottling Neuro oriented x3, CN's II-XII intact bilaterally, moves all extremities and no focal motor deficits Neuro Narrative: Significant generalized weakness noted but no focal deficits Speech: speech normal Psych affect normal Psych Narrative: Very pleasant, eye contact is good, patient interacts appropriately Assessment & Plan Assessment/Plan (1) Rhabdomyolysis: (2) Right flank hematoma: (3) History of recent fall: (4) Compression fracture of L5 vertebra: (5) Compression fracture of L1 vertebra: (6) Rib fractures: (7) Debility: (8) Hypoxia: PLAN: Plan Mild rhabdomyolysis -CK is trending down -2433 on admission and now down to 1656 -No signs of renal dysfunction -Discontinue IV fluids -No need to further cycle CKs Right flank hematoma -Patient is anticoagulated at baseline -Hemoglobin drop of about 2 g through the night -Will repeat for stability as patient was also given IV fluids and this may be due to hemodilution but I want to make sure that after fluids are discontinued his hemoglobin stabilizes Hypoxia -I doubt infection -Patient with crackles at bilateral bases -Likely volume overload from fluids -IV fluids discontinued and will give an extra dose of IV Lasix today -Currently requiring 2 L nasal cannula -I did test him on room air and oxygen saturation was 90%. Lumbar spine compression fractures/rib fractures -Notable at L1 and L5 with recent kyphoplasty -Also endplate damage noted at L2 and L3 with uncertain chronicity -Will schedule Tylenol 1 g every 3 hours -Continue home gabapentin -Continue as needed oxycodone -Add lidocaine patch -Avoid NSAIDs with recent GI bleed -Recommend ongoing outpatient follow-up with Dr. Rust -Check vitamin D level -With multiple fractures will refer to Dr. Perez at discharge for osteoporosis workup as patient is on chronic steroids for rheumatoid arthritis and probably should be on a bisphosphonate Constipation -CT shows considerable fecal retention in the colon and rectal impaction with possible nonspecific ileus noted -Patient not having any nausea or vomiting -Continue current diet -Continue daily MiraLAX -Will utilize enemas Q 6 hours x 4 to help decrease fecal retention and rectal impaction and get his bowels moving some -Patient begins to have nausea or vomiting will need to make n.p.o. -Bowel regimen will be important as I do anticipate he is going to have ongoing needs for opiates with his pain Falls/debility -PT/OT consultation -Anticipate discharge to skilled facility versus TCU versus rehab -Case management and social work consulted -Patient will need pre-CERT prior to discharge--> should be able to start pre- CERT today as long as his hemoglobin is stable on recheck Hypoxia -Was stable on room air on presentation however oxygen sats dropped after IV narcotics given -Avoid IV narcotics -Currently on 2 L nasal cannula sats between 96 to 100% -Wean oxygen as able -Incentive spirometry History of GI bleed -Recent admission 2022 with GI bleed and 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--> was treated and reinitiated on Xarelto -Follows with hematology for IV iron -Slight drop in hemoglobin however patient was also getting IV fluids and this could be possibly attributed to hemodilution -Will stop IV fluids and repeat hemoglobin this afternoon for stability Chronic anemia -Baseline hemoglobin seems to be returned running between 11 and 13 -Current hemoglobin 10.9 however is on IV fluids -Will repeat hemoglobin after IV fluids stopped this afternoon to check stability with flank hematoma and recent GI bleed -Continue oral iron -Continue outpatient follow-up with hematology CAD/PAF/hyperlipidemia/chronic diastolic heart failure/HTN/moderate aortic stenosis -PCI on OM2 with GAGE. Unsuccessful PCI of [facility]IVITIES THERAPIST of LAD 08/06/2020 -Continue statin -Continue aspirin 81 mg -Continue home amiodarone -Continue home Lasix -Continue home Aldactone -No signs currently of acute decompensated heart failure -Last echocardiogram done on 09/24/2022 shows an EF of 50% with hypokinetic apex and mild left atrial enlargement along with moderate aortic stenosis BPH -Continue Flomax Insomnia -Continue home trazodone Rheumatoid arthritis -Patient takes as needed prednisone 10 mg daily as needed -Currently not requiring prednisone and will hold while hospitalized -Will continue home Simponi at discharge Chronic peripheral edema -Continue home diuretics -Eber wrap's ordered while hospitalized History of tobacco abuse -Encouraged ongoing cessation DVT prophylaxis -Continue home Xarelto CODE STATUS -DNR CCA with no intubation as verified on admission Charges/Coding Visit Charges Inpatient E&M: 00047 [facility] Hosp L3
[2023-01-05] MEDS: 0.9% Saline Lock 10 ML Syringe IV ×2 (08:27→11:15)
[2023-01-05] MEDS: Folic Acid 1 MG Tablet 2 MG PO (08:28)
[2023-01-05] MEDS: Acetaminophen 500 MG Tablet 1000 MG PO ×3 (08:28→22:55)
[2023-01-05] MEDS: Multivitamins,Therapeutic Tablet 1 TABLET PO (08:29)
[2023-01-05] MEDS: oxyCODONE 5 MG Tablet PO ×3 (08:31→21:14)
--- NOTE | 2023-01-05 08:48 | NURSING ---
Dr. Rust office called per MD communication order for post kyphoplasty care/discharge orders, home self care. The RN there stated that the patient was to take it easy for one week, no lifting, resume activity as tolerated.
[2023-01-05] MEDS: Polyethylene Glycol 3350 17 GM PACKET PO (10:20)
[2023-01-05] MEDS: Lidocaine 5% Patch 1 PATCH TOPICAL (10:21)
[2023-01-05] MEDS: Iron Polysaccharide Complex 150 MG CAPSULE PO (10:22)
[2023-01-05] MEDS: Aspirin E.C. 81 MG Tablet PO (10:22)
[2023-01-05] MEDS: Finasteride 5 MG Tablet PO (10:23)
[2023-01-05] MEDS: Spironolactone 25 MG Tablet PO (11:13)
[2023-01-05] MEDS: Amiodarone 200 MG Tablet PO (11:13)
[2023-01-05] MEDS: Furosemide 40 MG/4 ML Vial IV (11:14)
--- NOTE | 2023-01-05 12:55 | CASEMGMT ---
Addendum entered by Tran Carranza 01/05/23 14:06: [facility] notified patient that [facility] accept him pending his insurance approving him. Tran CONTRERAS Original Note: Patient was accepted in TCU. [facility] in TCU will start the pre-cert. [facility] will notify patient. Plan: [facility] TCU pending insurance approval. Tran CONTRERAS
[2023-01-05 14:09] LABS: Hemoglobin 11.8 g/dL (13.0-16.5)
--- NOTE | 2023-01-05 15:02 | CHAPLAIN ---
Type of Pastoral Visit _x__ Initial Visit ___ Follow-up Visit ___ On-call Visit ___ General Patient Visit ___ Spiritual Assessment ___ Family Conference ___ Bereavement ___ Rapid Response ___ Code Blue ___ Other (describe below) Pastoral Care Referral From _x__ Patient ___ Family ___ Nurse ___ Physician ___ Mammal Keeper ___ Health Information Technician ___ Other (describe below) Sacrament/Intervention _x__ Active listening ___ Anointing ___ Congregation ___ Bereavement ___ Communion _x__ Enriqueta exploration ___ _x__ Life review _x__ Prayer ___ Reconciliation ___ Sacrament of Sick ___ Supportive presence ___ Wedding ___ Other (describe below) Pastoral Comments patient and daughter are in the room; pt describes reason for admission due to fall and lying overnight on the floor; pt admits need for some better strength or living situation; daughter is interactive in visit and supportive; pt speaks of enriqueta and welcomes a prayer; presence and prayer given with offer of ongoing care as needed
[2023-01-05] MEDS: Menthol/Lanolin/Calamine/Znox 113 GM Tube 1 APPLIC TOPICAL ×2 (15:31→22:33)
[2023-01-05] MEDS: Potassium Chloride Oral Tablet 20 MEQ 60 MEQ PO (15:31)
[2023-01-05] MEDS: Ergocalciferol 1.25 MG (50, 000 UNIT) Capsule PO (15:32)
[2023-01-05] MEDS: Furosemide 40 MG Tablet 80 MG PO (15:33)
[2023-01-05] MEDS: Juven (unflavored) Packet 1 PACKET PO (17:39)
[2023-01-05] MEDS: Tamsulosin HCl 0.4 MG Capsule PO (17:39)
[2023-01-05] MEDS: Rivaroxaban 20 MG Tablet PO (17:40)
[2023-01-05] MEDS: Mirtazapine 15 MG Tablet PO (21:14)
[2023-01-05] MEDS: Atorvastatin Calcium 40 MG Tablet PO (21:14)
[2023-01-05] MEDS: traZODone 100 MG Tablet PO (21:14)
--- NOTE | 2023-01-05 21:58 | PCM.HOSP.N ---
Hospitalist Note Verified patient is supposed to be on keflex s/p his recent lumbar surgery, will add this back.
[2023-01-05] MEDS: Cephalexin 500 MG Capsule PO (22:56)
[2023-01-06 01:46] VITALS: BP 115/65; PULSE 77; RESP 16; TEMP 36.9; O2SAT 94
[2023-01-06] MEDS: oxyCODONE 5 MG Tablet PO ×2 (02:00→09:08)
[2023-01-06 03:19] VITALS: BMI 27.5
[2023-01-06 05:08] VITALS: BP 124/64; PULSE 70; RESP 16; TEMP 36.3; O2SAT 96
[2023-01-06] MEDS: Cephalexin 500 MG Capsule PO ×2 (05:11→16:06)
[2023-01-06] MEDS: Acetaminophen 500 MG Tablet 1000 MG PO ×2 (05:11→16:06)
--- NOTE | 2023-01-06 05:20 | NURSING ---
Pt refused enema this morning. Education provided about benefits of enema regarding seen stool impaction with his scan.
[2023-01-06 05:21] LABS: Absolute Lymphocyte Count 0.93 X10^3/uL (0.83-4.51); Absolute Neutrophil Count 4.6 X10^3/uL (2.0-7.7); Basophil# 0.03 X10^3/uL; Basophil% 0.5 % (0-1); Eosinophil# 0.23 X10^3/uL; Eosinophils% 3.5 % (0-5); Hematocrit 34.6 % (40-54); Hemoglobin 10.7 g/dL (13.0-16.5); Lymphocyte # 0.93 X10^3/ul (0.83-4.51); Mean Corp Hgb Conc 30.9 g/dL (32-36); Mean Corpuscular Hgb 30.9 pg (27.0-32.0); Mean Platelet Vol. 9.4 fl (6.2-12.0); Monocyte# 0.83 X10^3/uL; Monocyte% 12.5 % (0-10); NRBC Flagged by Analyzer 0 % (0-5); Neutrophil # 4.61 X10^3/uL (2.7-7.7); Neutrophil % 69.3 % (47-70); POSITIVE MORPHOLOGY YES; Platelet Count 156 K/mm3 (150-450); RBC Distribution Width CV 21.9 % (11.6-14.6); RBC Distribution Width SD 78.5 fl (35.1-43.9); Red Blood Count 3.46 M/mm3 (4.6-6.2); White Blood Count 6.6 K/mm3 (4.4-11.0)
[2023-01-06 05:26] LABS: Differential Indicated SCAN CRITERIA MET
[2023-01-06 05:43] LABS: Macrocytosis 1+
[2023-01-06 05:44] LABS: Anisocytosis 2+
[2023-01-06 06:02] LABS: Anion Gap 2 (5-15); BUN 15 mg/dL (7-18); Calcium,Total 8.1 mg/dL (8.5-10.1); Chloride 105 mmol/L (98-107); Creatinine, Serum 0.62 mg/dL (0.70-1.30); EST Glomerular Filtration Rate 132 mL/min (>60); Est Glom Filt Rate - Afr Amer 159 mL/min (>60); Estimated Creatinine Clearance 41.67 ml/min; Glucose 94 mg/dL (74-106); Magnesium 2.2 mg/dL (1.6-2.6); Phosphorus 3.7 mg/dL (2.5-4.9); Potassium 3.6 mmol/L (3.5-5.1); Sodium Level 139 mmol/L (136-145)
[2023-01-06 07:44] VITALS: O2SAT 96
[2023-01-06 09:05] VITALS: BP 116/59; PULSE 65; RESP 18; TEMP 37; O2SAT 95
[2023-01-06] MEDS: Polyethylene Glycol 3350 17 GM PACKET PO (09:08)
[2023-01-06] MEDS: Lidocaine 5% Patch 1 PATCH TOPICAL (09:09)
[2023-01-06] MEDS: Folic Acid 1 MG Tablet 2 MG PO (09:10)
[2023-01-06] MEDS: Aspirin E.C. 81 MG Tablet PO (09:10)
[2023-01-06] MEDS: Spironolactone 25 MG Tablet PO (09:10)
[2023-01-06] MEDS: Amiodarone 200 MG Tablet PO (09:11)
[2023-01-06] MEDS: Iron Polysaccharide Complex 150 MG CAPSULE PO (09:11)
[2023-01-06] MEDS: Multivitamins,Therapeutic Tablet 1 TABLET PO (09:11)
[2023-01-06] MEDS: Finasteride 5 MG Tablet PO (09:11)
[2023-01-06] MEDS: Juven (unflavored) Packet 1 PACKET PO (09:11)
[2023-01-06] MEDS: Menthol/Lanolin/Calamine/Znox 113 GM Tube 1 APPLIC TOPICAL ×2 (09:19→16:06)
[2023-01-06] MEDS: Furosemide 40 MG Tablet 80 MG PO (09:26)
--- NOTE | 2023-01-06 11:23 | CASEMGMT ---
SW let patient know he would not be able to get his Simponi Aria injection while in TCU. Patient verbalized understanding. Tran CONTRERAS
[2023-01-06] MEDS: Lactulose 20 GM/30 ML UDC PO (11:26)
--- NOTE | 2023-01-06 12:46 | CASEMGMT ---
Patient was approved by insurance for TCU. However, TCU is requiring patient to have a KUB and more bowel movements before d/c. SW notified physician and a KUB was ordered. Await results. Tran Carranza SCREEN PRINTER HELPER BEN
[2023-01-06 13:06] VITALS: O2SAT 95
--- NOTE | 2023-01-06 14:25 | RAD_ITS ---
STUDY: X-RAY - ABDOMEN/PELVIS REASON FOR EXAM: Male, 82 years old. Constipation. TECHNIQUE: Single AP view of the abdomen / pelvis. COMPARISON: None. FINDINGS: There is an unremarkable bowel gas pattern. Calcified phleboliths. The visualized liver, spleen and kidneys are grossly normal in size and morphology. Normal soft tissue structures. There are diffuse degenerative changes of the visualized lumbar spine. Minimal levoscoliosis. Prior vertebroplasty of the L1 and L5 vertebrae. Degenerative changes of both hip joints. RAD/Abdomen Single View (Portable) IMPRESSION: Nonspecific bowel gas pattern. Electronically Signed: Nicko Yoon MD at 14:53 EDT ,
--- NOTE | 2023-01-06 14:43 | PCM.TXEXTCAR ---
Diet Diet Order/Speech Therapy: 01/04/23 22:26 Diet: Cardiac - Heart Healthy Food consistency:: Regular Liquid Consistency:: Regular/Thin Routine Orders/Code Status Suppository Frequency: Daily PRN O2 Liters per Minute: 2 O2 Frequency: Continuous Keep PO Greater than or Equal to (%): 88 Routine Lab Work: CBC (01/09/2023) and BMP (01/09/2023) Code Status: DNRCC-A (no ETT) Wound(s) inner buttock: Wound Type: Pressure Injury Therapies Physical Therapy: Eval and Treat Occupational Therapy: Eval and Treat Problem/Diagnosis (1) Rhabdomyolysis: Status: Acute Code(s): M62.82 - Rhabdomyolysis (2) Right flank hematoma: Status: Acute Code(s): S30.1XXA - Contusion of abdominal wall, initial encounter (3) History of recent fall: Status: Acute Code(s): Z91.81 - History of falling (4) Compression fracture of L5 vertebra: Status: Acute Code(s): S32.050A - Wedge compression fracture of fifth lumbar vertebra, initial encounter for closed fracture (5) Compression fracture of L1 vertebra: Status: Acute Code(s): S32.010A - Wedge compression fracture of first lumbar vertebra, initial encounter for closed fracture (6) Rib fractures: Status: Acute Code(s): S22.49XA - Multiple fractures of ribs, unspecified side, initial encounter for closed fracture (7) Debility: Status: Acute Code(s): R53.81 - Other malaise (8) Hypoxia: Status: Acute Code(s): R09.02 - Hypoxemia Plan Continue aggressive pulmonary toilet Allergies/Procedures Done in Hospital Allergies No Known Allergies Allergy (Verified 01/04/23 18:20) Procedures: - (CT abd and pelvis/CT brain/CXR/KUB) Type of Care/Length of Stay Estimated LOS: Convalescent Care Less Than 30 days Type of Care Needed: Skilled Rehab Potential: Good Prognosis: Fair Additional Orders/Day of Discharge Day of Discharge: 01/06/23 Dietary and Speech Recommendations Dietitian Recommendations/Changes: Continue Cardiac diet to manage medical conditions. RD will order Tian BID to promote wound healing. Discharge Plan Admission Admit Date/Time: 01/04/23 21:26 Attending Provider: Melva Wheeler Primary Care Provider: Gloria Hazel Consulting Providers: Mi Gregory Discharge Orders/Prescriptions Prescriptions: No Action folic acid 1 mg tablet 2 mg PO DAILY mirtazapine 15 mg tablet 15 mg PO QHS multivitamin [Daily Multi-Vitamin] Tablet 1 tab PO DAILY finasteride 1 mg tablet 5 mg PO DAILY aspirin 81 mg tablet,delayed release (DR/EC) 81 mg PO DAILY Qty: 1 0RF furosemide [Lasix] 40 mg tablet 80 mg PO DAILY 90 Days Qty: 180 3RF spironolactone 25 mg tablet 25 mg PO DAILY Qty: 30 12RF polysaccharide iron complex [Ferrex 150] 150 mg iron capsule 150 mg PO DAILY 90 Days Qty: 90 3RF hydrocodone-acetaminophen 5-325 mg tablet 1 tab PO Q6H Patient Comments: TAKE 1 TABLET BY MOUTH THREE TIMES DAILY NEEDED tamsulosin 0.4 MG capsule 0.4 mg PO DAILY@1800 trazodone 100 mg tablet 100 mg PO QHS vitamin S76-[id number] acid 2,500-400 mcg tablet,disintegrating 1 tab PO DAILY Simponi ARIA 12.5 mg/mL Solution 12.5 mg IV .[id number] Patient Comments: PT GOES TO GET INJECTION EVERY 8 WEEKS CAN NOT REMEMBER LAST SHOT NEXT DUE IS IN OCTOBER buprenorphine 10 mcg/hour Patch Weekly 1 patch TRANSDERMAL QWEEK Rx Instructions: change on gabapentin 300 mg capsule 300 mg PO TID PRN PRN (Reason: NERVE PAIN) Patient Comments: Take 1 (one) Capsule by mouth three times daily, as needed Xarelto 20 mg tablet 20 mg PO DAILY Qty: 1 0RF Rx Instructions: must administer with evening meal, start on 10/22/2022 prednisone 10 mg tablet 10 mg PO DAILY PRN (Reason: RA FLARE UP) Rx Instructions: As instructed cephalexin 500 mg capsule 500 mg PO Q6H Patient Comments: takes 1 capsule four times daily. Pt hasnt started meds yet atorvastatin [Lipitor] 40 mg tablet 40 mg PO QHS Qty: 90 3RF amiodarone 200 mg tablet 200 mg PO DAILY Qty: 90 3RF Referrals / Follow Up: Gloria Hazel MD [Primary Care Provider] -
--- NOTE | 2023-01-06 14:47 | DS.PCM_ITS ---
Providers Date of Admission: 01/04/23 Date of Discharge: 01/06/23 Primary Care Physician: Dr. Gloria Hazel MD Reason For Visit: FALL, RHABDOMYOLYSIS, ADULT FTT Diagnosis Discharge Diagnosis (1) Rhabdomyolysis: Status: Acute Code(s): M62.82 - Rhabdomyolysis (2) Right flank hematoma: Status: Acute Code(s): S30.1XXA - Contusion of abdominal wall, initial encounter (3) History of recent fall: Status: Acute Code(s): Z91.81 - History of falling (4) Compression fracture of L5 vertebra: Status: Acute Code(s): S32.050A - Wedge compression fracture of fifth lumbar vertebra, initial encou nter for closed fracture (5) Compression fracture of L1 vertebra: Status: Acute Code(s): S32.010A - Wedge compression fracture of first lumbar vertebra, initial encounter for closed fracture (6) Rib fractures: Status: Acute Code(s): S22.49XA - Multiple fractures of ribs, unspecified side, initial encounter for closed fracture (7) Debility: Status: Acute Code(s): R53.81 - Other malaise (8) Hypoxia: Status: Acute Code(s): R09.02 - Hypoxemia Medications at Discharge Home Medications tamsulosin 0.4 mg capsule 0.4 mg PO DAILY@1800 Retention 07/18/20 folic acid 1 mg tablet 2 mg PO DAILY 09/28/20 finasteride 1 mg tablet 5 mg PO DAILY 12/30/20 multivitamin (Daily Multi-Vitamin tablet) 1 tab PO DAILY Check with primary doctor 01/01/21 aspirin 81 mg tablet,delayed release 81 mg PO DAILY #1 TAB 01/10/22 mirtazapine 15 mg tablet 15 mg PO QHS 01/10/22 vitamin B12 2,500 mcg-folic acid 400 mcg disintegrating tablet 1 tab PO DAILY Check with primary doctor 01/10/22 golimumab 12.5 mg/mL intravenous solution (Simponi ARIA) 12.5 mg IV .[id number] 05/31/22 atorvastatin 40 mg tablet (Lipitor) 40 mg PO QHS Cholesterol #90 tabs 10/07/22 gabapentin 300 mg capsule 300 mg PO TID PRN PRN NERVE PAIN 10/20/22 rivaroxaban 20 mg tablet (Xarelto) 20 mg PO DAILY anticoagulation #1 TAB 05/26/23 amiodarone 200 mg tablet 200 mg PO DAILY heart rate #90 tabs 10/28/22 furosemide 40 mg tablet (Lasix) 80 mg (2 x 40 mg) PO DAILY 90 days #180 tabs 11/14/22 spironolactone 25 mg tablet 25 mg PO DAILY #30 tabs 11/14/22 trazodone 100 mg tablet 100 mg PO QHS Check with primary doctor 11/14/22 polysaccharide iron complex 150 mg iron capsule (Ferrex) 150 mg PO DAILY 90 days #90 caps 12/14/22 prednisone 10 mg tablet 10 mg PO DAILY PRN RA FLARE UP 01/04/23 cephalexin 500 mg capsule 500 mg PO Q6H s/p kyphoplasty 01/05/23 acetaminophen 500 mg tablet 1,000 mg (2 x 500 mg) PO Q8 #0 tabs 01/06/23 arginine 7 gram-glutam 7 gram-CaHMB 1.5 albh-[id number]-az-min oral pwd pkt (Tian (with collagen)) 1 packet PO BIDCM #0 ea 01/06/23 ergocalciferol (vitamin D2) 1,250 mcg (50,000 unit) capsule (Vitamin D2) 1,250 mcg PO Q7D #0 caps 01/06/23 lidocaine 5 % topical patch 1 patch topical DAILY #0 ea 01/06/23 oxycodone 5 mg tablet 5 mg PO Q4H PRN PRN Pain Score 6-10 1 day #6 tabs 01/06/23 polyethylene glycol 3350 17 gram oral powder packet 17 g PO BID #0 ea 01/06/23 sennosides 8.6 mg-docusate sodium 50 mg tablet (Stool Softener-Stimulant Laxative) 2 tab PO BID PRN PRN Constipation #0 tabs 01/06/23 Hospital Course Summary of Care Provided Minutes Spent on Discharge: 38 Hospital Course: Mr. Rodrgiuez is an 82-year-old white male who presented to the emergency department at [facility] on 01/04/2023 with history of a fall approximately 1 week prior to presentation. He had rib fractures that were diagnosed at that time and follow-up with pain management for kyphoplasty which was performed. Unfortunately, when he returned home from his follow-up with pain management status post kyphoplasty he was walking into his house and tripped. He landed on his buttocks and was unable to get up off the floor and was there all evening. He was eventually found the next morning and EMS was called and he was brought to the emergency department for further evaluation. He had significant low back pain since falling that he reported initially at 10 out of 10 in severity and reported sharp with aching during movement and a dull throbbing constant ache. Initial vital signs were unremarkable however after narcotics were given for pain he desatted with oxygen saturations in the 78 on room air with improvement to 100% on 2 L nasal cannula. During his hospital course he is remained stable on 2 L nasal cannula. He has had crackles in his left base and chest x-ray shows atelectasis. He has no signs of infection and his white count and differential are normal. I suspect this is likely ate lectasis related to his recent rib fractures and back pain and we have encouraged ongoing incentive spirometry and Acapella which she is to continue after discharge. His CBC was unremarkable. His chemistry panel was unremarkable. His CK was elevated at 2433 and trended down with no signs of renal involvement. UA showed some mild proteinuria and ketones but was otherwise unremarkable. Chest x-ray showed mild segmental atelectasis and possible small pleural effusion in the left lower lobe. CT of the brain showed chronic changes noting atrophy and advanced periventricular white matter ische lavon changes. CT of the abdomen pelvis without contrast showed left nephrolithiasis without evidence of obstruction, nonspecific ileus with diffuse fecal retention in the colon and rectal impaction as well as old compression fracture at L1 and L5 status post kyphoplasty and mild wedging of superior endplates of L2 and L3. Initial troponin was 55. In the emergency department he was treated with antiemetics, pain medication, and 1 L of normal saline. He was admitted to telemetry l floor for ongoing care and possible placement. During his hospital course he was treated for his constipation with enemas as well as MiraLAX p.o. twice daily. He was also given 1 dose of lactulose. Follow-up KUB done on 01/06/2023 shows improvement in a nonspecific bowel gas pattern with decrease stool burden. He did have a large bowel movement on 01/05/2023. We did obtain a vitamin D level given his recent fractures and it was found to be low so he was started on ergocalciferol 5000 units weekly. He was dosed initially on 01/05/2023 and will need weekly dosing for 6 weeks with a repeat vitamin D level at that time. He is at risk for osteoporosis with his history of rheumatoid arthritis and intermittent steroid use. I have made a referral to Dr. Perez as he is not on a bisphosphonate at baseline. With regards to his pain he was scheduled on Tylenol and as needed oxycodone along with lidocaine patches were utilized. He was able to participate with physical and Occupational Therapy and they did recommend ongoing rehab at the time of discharge prior to returning home. His preference was for discharge to the transitional care unit and he was excepted. We received precertification from his insurance company on 01/06/2023. He is currently on Keflex prescribed by pain management related to his recent kyphoplasty and will need to continue this for its course. He is to follow-up with pain management in 1 week. I have also recommended he follow-up with his primary care physician within a month or shortly after discharge from the transitional care unit. He was able to be discharged to TCU in stable condition on 01/06/2023. Discharge diagnoses: Mild rhabdomyolysis-resolved Right flank hematoma Hypoxia due to atelectasis Lumbar spine compression fractures Rib fractures Constipation Falls Debility History of GI bleed Chronic anemia-stable CAD PAF Hyperlipidemia Chronic diastolic heart failure Hypertension Moderate aortic stenosis BPH Insomnia Rheumatoid arthritis Chronic peripheral edema History of tobacco abuse Physical Exam Const alert, oriented x3, no apparent distress, average body habitus, no limitations and well nourished Constitutional Narrative: Elderly white male bed, nursing at bedside, appears comfortable and nontoxic General Appearance: cooperative, comfortable, well kempt and well developed Orientation / Consciousness: awake, oriented to person, oriented to place and oriented to time Exam Limitations: no limitations Nutritional Appearance: overweight HEENT normocephalic, head/scalp atraumatic and moist oral mucous membranes HEENT Narrative: Mild to moderate hearing loss, dentition is poor, Mallampati is 2, no thrush Eyes PERRL, EOMs intact bilaterally and conjunctivae normal Eyes Narrative: No scleral icterus Neck no lymphadenopathy and supple Neck Narrative: Trachea midline, no enlargement Resp normal respiratory effort, no retractions, no use of accessory muscles and No clear to auscultation bilaterally Resp Narrative: Scattered crackles at left base Auscultation: crackles; Negative for rhonchi or wheezes Cardio regular rate, regular rhythm, S1 normal heart sound, S2 normal heart sound, no rub, no gallops and no clicks; Negative for no murmurs Cardio Narrative: 3 out of 6 systolic murmur loudest at right upper sternal border GI normal to inspection, nondistended, normoactive bowel sounds, soft to palpation and non-tender Extremity Extremity Narrative: Stable 2+ pitting edema at the distal lower extremities-patient states this is improved from his baseline, no clubbing or cyanosis Skin no rashes or lesions noted, skin turgor normal, no jaundice, no petechiae and no mottling Skin Narrative: Large ecchymotic area on right flank but is quite purple and few scattered other ecchymosis related to recent falls Neuro oriented x3, CN's II-XII intact bilaterally, moves all extremities and no focal motor deficits Neuro Narrative: Significant generalized weakness noted but no focal deficits Speech: speech normal Psych affect normal Psych Narrative: Very pleasant, eye contact is good, patient interacts appropriately Weight / BMI Weight Weight: 63.9 kg Body Mass Index (BMI) 27.5 ABG / Lab / Microbiology Data 01/06/23 04:39 01/06/23 04:39 Laboratory: Laboratory Results - last 24 hr 01/06/23 04:39: WBC 6.6, RBC 3.46 L, Hgb 10.7 L, Hct 34.6 L, MCV 100.0 H, MCH 30.9, MCHC 30.9 L, RDW Std Deviation 78.5 H, RDW Coeff of Jaciel 21.9 H, Plt Count 156, MPV 9.4, Immature Gran % (Auto) 0.200, Neut % (Auto) 69.3, Lymph % (Auto) 14.0 L, Mason % (Auto) 12.5 H, Eos % (Auto) 3.5, Baso % (Auto) 0.5, Absolute Neuts (auto) 4.6, Absolute Lymphs (auto) 0.93, Nucleated RBC % 0, Anisocytosis 2+, Macrocytosis 1+, Sodium 139, Potassium 3.6, Chloride 105, Carbon Dioxide 32.0, Anion Gap 2 L, BUN 15, Creatinine 0.62 L, Estim Creat Clear Calc 41.67, Est GFR (MDRD) Af Amer 159, Est GFR (MDRD) Non-Af 132, BUN/Creatinine Ratio 24.0 H, Glucose 94, Calcium 8.1 L, Phosphorus 3.7, Magnesium 2.2 Meaningful Use Info Meaningful Use Diagnoses (Choose all that apply): None applicable Discharge Plan Admission Admit Date/Time: 01/04/23 21:26 Primary Reason for Your Visit: Fall/Deblilty Attending Provider: Melva Wheeler Primary Care Provider: Gloria Hazel Consulting Providers: Mi Gregory Discharge Orders/Prescriptions Prescriptions: New polyethylene glycol 3350 17 gram Powder In Packet 17 g PO BID Qty: 0 0RF acetaminophen 500 mg Tablet 1,000 mg PO Q8 Qty: 0 0RF lidocaine 5 % Adhesive Patch,Medicated 1 patch topical DAILY Qty: 0 0RF Protocol: *Topical Application Instructions APPLICATION INSTRUCTIONS: lumbar spine in painful region ergocalciferol (vitamin D2) [Vitamin D2] 1,250 mcg (50,000 unit) Capsule 1,250 mcg PO Q7D Qty: 0 0RF oxycodone 5 mg Tablet 5 mg PO Q4H PRN PRN (Reason: Pain Score 6-10) 1 Days Qty: 6 0RF Tian (with collagen) 7-7-1.5 gram Powder In Packet 1 packet PO BIDCM Qty: 0 0RF sennosides-docusate sodium [Stool Softener-Stimulant Laxat] 8.6-50 mg Tablet 2 tab PO BID PRN PRN (Reason: Constipation) Qty: 0 0RF Continued folic acid 1 mg tablet 2 mg PO DAILY mirtazapine 15 mg tablet 15 mg PO QHS multivitamin [Daily Multi-Vitamin] Tablet 1 tab PO DAILY finasteride 1 mg tablet 5 mg PO DAILY aspirin 81 mg tablet,delayed release (DR/EC) 81 mg PO DAILY Qty: 1 0RF furosemide [Lasix] 40 mg tablet 80 mg PO DAILY 90 Days Qty: 180 3RF spironolactone 25 mg tablet 25 mg PO DAILY Qty: 30 12RF polysaccharide iron complex [Ferrex 150] 150 mg iron capsule 150 mg PO DAILY 90 Days Qty: 90 3RF tamsulosin 0.4 MG capsule 0.4 mg PO DAILY@1800 trazodone 100 mg tablet 100 mg PO QHS vitamin [id number] acid 2,500-400 mcg tablet,disintegrating 1 tab PO DAILY Simponi ARIA 12.5 mg/mL Solution 12.5 mg IV .[id number] Patient Comments: PT GOES TO GET INJECTION EVERY 8 WEEKS CAN NOT REMEMBER LAST SHOT NEXT DUE IS IN OCTOBER gabapentin 300 mg capsule 300 mg PO TID PRN PRN (Reason: NERVE PAIN) Patient Comments: Take 1 (one) Capsule by mouth three times daily, as needed Xarelto 20 mg tablet 20 mg PO DAILY Qty: 1 0RF Rx Instructions: must administer with evening meal, start on 10/22/2022 prednisone 10 mg tablet 10 mg PO DAILY PRN (Reason: RA FLARE UP) Rx Instructions: As instructed cephalexin 500 mg capsule 500 mg PO Q6H Patient Comments: takes 1 capsule four times daily. Pt hasnt started meds yet atorvastatin [Lipitor] 40 mg tablet 40 mg PO QHS Qty: 90 3RF amiodarone 200 mg tablet 200 mg PO DAILY Qty: 90 3RF Discontinued hydrocodone-acetaminophen 5-325 mg tablet 1 tab PO Q6H Patient Comments: TAKE 1 TABLET BY MOUTH THREE TIMES DAILY NEEDED buprenorphine 10 mcg/hour Patch Weekly 1 patch TRANSDERMAL QWEEK Rx Instructions: change on Referrals / Follow Up: Lorelei Rust MD [Med Staff - Active Staff] - In 1 Week Gloria Hazel MD [Primary Care Provider] - Within 1 Month Jasbir Perez MD [Med Staff - Courtesy Staff] - Within 1 Month (osteoporosis ) Disposition Disposition (needs filled in before D/C Order can be placed): [facility] Facility Charges/Coding Visit Charges Inpatient E&M: 49134 SNF Disch >30 Min
--- NOTE | 2023-01-06 15:07 | CASEMGMT ---
Patient is okay to go to TCU now. SW notified physician. Plan: d/c to [facility] TCU under skilled level of care. Tran CONTRERAS
[2023-01-06] MEDS: Tamsulosin HCl 0.4 MG Capsule PO (16:07)
[2023-01-06] MEDS: Rivaroxaban 20 MG Tablet PO (16:07)
[2023-01-06 16:22] VITALS: BP 116/59; PULSE 65; RESP 18; TEMP 37; O2SAT 95
--- NOTE | 2023-01-06 16:27 | NURSING ---
Report called to nurse Last for pt to be d/c to TCU.
== END 2023-01-06 17:25 | disposition skilled nursing facility (03) | DRG 558 ==
LOC: ED 21:18 → PCU 21:44
PROVIDERS: Admitting Provider Family Medicine; Emergency Provider Student in an Organized Health Care Education/Training Program; PCP Family Medicine; Visit Provider Internal Medicine
DX: M62.82 Rhabdomyolysis (principal); I47.1 Supraventricular tachycardia; K56.49 Other impaction of intestine; I50.32 Chronic diastolic (congestive) heart failure; L89.151 Pressure ulcer of sacral region, stage 1; R62.7 Adult failure to thrive; I11.0 Hypertensive heart disease with heart failure; I48.0 Paroxysmal atrial fibrillation; M06.9 Rheumatoid arthritis, unspecified; K56.41 Fecal impaction; I35.0 Nonrheumatic aortic (valve) stenosis; D64.9 Anemia, unspecified; F32.A Depression, unspecified; M48.061 Spinal stenosis, lumbar region without neurogenic claudication; E78.5 Hyperlipidemia, unspecified; I25.10 Atherosclerotic heart disease of native coronary artery without angina pectoris; S30.1XXA Contusion of abdominal wall, initial encounter; W18.09XA Striking against other object with subsequent fall, initial encounter; F41.9 Anxiety disorder, unspecified; S32.010D Wedge compression fracture of first lumbar vertebra, subsequent encounter for fracture with routine healing; S32.050D Wedge compression fracture of fifth lumbar vertebra, subsequent encounter for fracture with routine healing; R53.81 Other malaise; G89.4 Chronic pain syndrome; S22.41XD Multiple fractures of ribs, right side, subsequent encounter for fracture with routine healing; R09.02 Hypoxemia; N40.0 Benign prostatic hyperplasia without lower urinary tract symptoms; G47.00 Insomnia, unspecified; Z66 Do not resuscitate; Z79.01 Long term (current) use of anticoagulants; Z79.82 Long term (current) use of aspirin; Z95.5 Presence of coronary angioplasty implant and graft; Z87.891 Personal history of nicotine dependence
CPT/HCPCS: 36415; 70450; 71045; 74018; 74176; 80048; 80053; 81001; 82306; 82550; 83735; 84100; 84484; 85018; 85025; 93005; 94668; 97162; 97166; 97530; 97535; 99285; J7030; A4216; J1940; J2405

== ENCOUNTER 2023-01-06 17:52 | Inpatient (IN) | payer MEDICARE, SELFPAY ==
[2023-01-06 18:55] VITALS: BP 133/64; PULSE 76; RESP 18; TEMP 36.8; O2SAT 94
[2023-01-06] MEDS: oxyCODONE 5 MG Tablet PO (19:20)
[2023-01-06] MEDS: Cephalexin 500 MG Capsule PO (19:39)
[2023-01-06] MEDS: traZODone 100 MG Tablet PO (19:40)
[2023-01-06] MEDS: Atorvastatin Calcium 40 MG Tablet PO (19:40)
[2023-01-06] MEDS: Acetaminophen 500 MG Tablet 1000 MG PO (19:40)
[2023-01-06] MEDS: Mirtazapine 15 MG Tablet PO (19:40)
[2023-01-07] MEDS: Cephalexin 500 MG Capsule PO ×5 (00:32→23:30)
[2023-01-07] MEDS: oxyCODONE 5 MG Tablet PO ×5 (02:02→23:30)
--- NOTE | 2023-01-07 02:06 | NURSING ---
Pt requested pain medication around 0200. This nurse administered PRN oxycodone as ordered. Pt notably frustrated with intractable back pain. Pt stated I told you earlier that I was uncomfortable. Pt offered interventions earlier in shift; accepted PRN oxycodone and refused other interventions earlier in shift. At this time, this nurse offered to help patient reposition in bed; pt refused. Pt had stated previously that he has slept in the recliner at home for the past several months. Offered to assist pt into recliner as he may be more comfortable; pt refused. Pt stated he would like to stay in current position and try to sleep. Resistant to pharmacological and nonpharmacological interventions despite education. Encouraged to use call light if pt needed further assistance.
[2023-01-07] MEDS: Polyethylene Glycol 3350 17 GM PACKET PO ×2 (06:47→18:19)
[2023-01-07] MEDS: Acetaminophen 500 MG Tablet 1000 MG PO ×3 (06:49→21:46)
[2023-01-07] MEDS: Furosemide 40 MG Tablet 80 MG PO (06:49)
[2023-01-07] MEDS: Iron Polysaccharide Complex 150 MG CAPSULE PO (06:49)
[2023-01-07] MEDS: Finasteride 5 MG Tablet PO (06:49)
[2023-01-07 08:16] LABS: Absolute Lymphocyte Count 0.95 X10^3/uL (0.83-4.51); Basophil# 0.04 X10^3/uL; Basophil% 0.7 % (0-1); Eosinophil# 0.21 X10^3/uL; Eosinophils% 3.6 % (0-5); Hematocrit 34.5 % (40-54); Hemoglobin 11.1 g/dL (13.0-16.5); Lymphocyte # 0.95 X10^3/ul (0.83-4.51); Lymphocyte % 16.2 % (19-41); Mean Corp Hgb Conc 32.2 g/dL (32-36); Mean Corpuscular Volume 99.4 fL (80-94); Mean Platelet Vol. 9.3 fl (6.2-12.0); Monocyte# 0.66 X10^3/uL; Monocyte% 11.2 % (0-10); NRBC Flagged by Analyzer 0 % (0-5); Neutrophil % 68.1 % (47-70); POSITIVE MORPHOLOGY YES; Platelet Count 171 K/mm3 (150-450); RBC Distribution Width CV 21.5 % (11.6-14.6); RBC Distribution Width SD 77.1 fl (35.1-43.9); Red Blood Count 3.47 M/mm3 (4.6-6.2); White Blood Count 5.9 K/mm3 (4.4-11.0)
[2023-01-07 08:22] LABS: Differential Indicated SCAN CRITERIA MET
[2023-01-07 08:32] LABS: Anion Gap 6 (5-15); BUN 13 mg/dL (7-18); BUN/Creat Ratio 26.2 RATIO (10-20); Calcium,Total 8.2 mg/dL (8.5-10.1); Chloride 103 mmol/L (98-107); EST Glomerular Filtration Rate 171 mL/min (>60); Est Glom Filt Rate - Afr Amer 207 mL/min (>60); Glucose 84 mg/dL (74-106); Potassium 3.6 mmol/L (3.5-5.1); Sodium Level 139 mmol/L (136-145)
--- NOTE | 2023-01-07 08:33 | PCM.HP.STD ---
HPI - General General Date of Admission: 01/06/23 Date of Service: 01/06/23 Chief Complaint: Here for rehabilitation. HPI Narrative 01/04/2023 BRYCE ANN, is a 82 Male who presents to [facility] Department with fall. Fell 1 week ago, right rib fractures, Dr. Rust performed kyphoplasty 1 day prior. Went home, walking in house, tangled feet, and fell on buttocks. Unable to get up, stayed on floor all night, daughter found him next day. No bowel movement, urinated all over himself, too weak to get around house. Lives alone, right flank bruise from fall, on Xarelto. Morphine, Zofran given, CPK 2433, Urinalysis negative, CT brain negative. CT abdomen/pelvis L2-L3 compression fracture. 01/04/2023 Admit to Hospital. Gentle IV fluids for rhabdomyolysis. PT/OT for debility. 01/05/2023 Feels okay, needs more therapy, agreeable to SNF. CK improved, stop IV fluids. Hemoglobin dropped 2 grams, monitor. Lasix IV for hypoxia secondary to fluid overload. Tylenol, gabapentin, oxycodone, lidocaine patch for pain. Bowel regimen for fecal retention. 01/05/2023 Keflex status post kyphoplasty. 01/06/2023 Admit to TCU with debility, here for rehabilitation, strengthening, prior to discharge home alone. [facility] Medical History (Updated 01/07/23 @ 08:[address] Yogesh Lebron MD) Anemia Atherosclerotic heart disease of [place] coronary artery without angina pectoris Atrial fibrillation BPH (benign prostatic hyperplasia) Chronic edema Coronary artery disease Former smoker GERD (gastroesophageal reflux disease) History of heart attack History of stress test Lumbar spinal stenosis PAT (paroxysmal atrial tachycardia) Rheumatoid arthritis SVT (supraventricular tachycardia) Wears glasses Home Medications tamsulosin 0.4 mg capsule 0.4 mg PO DAILY@1800 Retention 07/18/20 [History Last Taken 01/05/23] folic acid 1 mg tablet 2 mg PO DAILY supplement 09/28/20 [History Last Taken 01/06/23] finasteride 1 mg tablet 5 mg PO DAILY prostate 12/30/20 [History Last Taken 01/06/23] multivitamin (Daily Multi-Vitamin tablet) 1 tab PO DAILY Check with primary doctor 01/01/21 [History Last Taken 01/06/23] aspirin 81 mg tablet,delayed release 81 mg PO DAILY heart #1 TAB 01/10/22 [Rx Last Taken 01/06/23] mirtazapine 15 mg tablet 15 mg PO QHS sleep 01/10/22 [History Last Taken 01/05/23] vitamin B12 2,500 mcg-folic acid 400 mcg disintegrating tablet 1 tab PO DAILY Check with primary doctor 01/10/22 [History Last Taken 10/19/22] golimumab 12.5 mg/mL intravenous solution (Simponi ARIA) 12.5 mg IV .[id number] injection 05/31/22 [History Last Taken Unknown] atorvastatin 40 mg tablet (Lipitor) 40 mg PO QHS Cholesterol #90 tabs 10/07/22 [Rx Last Taken 01/05/23] gabapentin 300 mg capsule 300 mg PO TID PRN PRN NERVE PAIN 10/20/22 [History Last Taken 10/20/22] rivaroxaban 20 mg tablet (Xarelto) 20 mg PO DAILY anticoagulation #1 TAB 10/21/22 [Rx Last Taken 01/05/23] amiodarone 200 mg tablet 200 mg PO DAILY heart rate #90 tabs 10/28/22 [Rx Last Taken 01/06/23] furosemide 40 mg tablet (Lasix) 80 mg (2 x 40 mg) PO DAILY water pill 90 days #180 tabs 11/14/22 [Rx Last Taken 01/06/23] spironolactone 25 mg tablet 25 mg PO DAILY water pill #30 tabs 11/14/22 [Rx Last Taken 01/06/23] trazodone 100 mg tablet 100 mg PO QHS Check with primary doctor 11/14/22 [History Last Taken 01/05/23] polysaccharide iron complex 150 mg iron capsule (Ferrex) 150 mg PO DAILY supplement 90 days #90 caps 12/14/22 [Rx Last Taken 01/06/23] prednisone 10 mg tablet 10 mg PO DAILY PRN RA FLARE UP 01/04/23 [History Last Taken Unknown] cephalexin 500 mg capsule 500 mg PO Q6H s/p kyphoplasty 01/05/23 [History Last Taken Unknown] acetaminophen 500 mg tablet 1,000 mg (2 x 500 mg) PO Q8 pain #0 tabs 01/06/23 [Rx Last Taken 01/06/23] arginine 7 gram-glutam 7 gram-CaHMB 1.5 [id number] oral pwd pkt (Tian (with collagen)) 1 packet PO BIDCM supplement #0 ea 01/06/23 [Rx Last Taken 01/06/23] ergocalciferol (vitamin D2) 1,250 mcg (50,000 unit) capsule (Vitamin D2) 1,250 mcg PO Q7D supplememt #0 caps 01/06/23 [Rx Last Taken 01/05/23] lidocaine 5 % topical patch 1 patch topical DAILY pain #0 ea 01/06/23 [Rx Last Taken 01/06/23] oxycodone 5 mg tablet 5 mg PO Q4H PRN PRN Pain Score 6-10 1 day #6 tabs 01/06/23 [Rx Last Taken 01/06/23] polyethylene glycol 3350 17 gram oral powder packet 17 g PO BID constipation #0 ea 01/06/23 [Rx Last Taken 01/06/23] sennosides 8.6 mg-docusate sodium 50 mg tablet (Stool Softener-Stimulant Laxative) 2 tab PO BID PRN PRN Constipation #0 tabs 01/06/23 [Rx Last Taken Unknown] Allergy/AdvReac Type Severity Reaction Status Date / Time No Known Allergies Allergy Verified 01/04/23 18:20 Family History Father CVA (cerebral vascular accident) Brother CAD (coronary artery disease) CABG X 3 Mother CVA (cerebral vascular accident) Grandfather Cancer prostate Surgical History H/O colonoscopy H/O umbilical hernia repair History of cardiac catheterization History of coronary artery stent placement (08/06/20) History of coronary artery stent placement History of lumbar surgery Hx of colectomy Hx of laminectomy Hx of transurethral resection of prostate S/P appendectomy S/P cataract surgery S/P hemorrhoidectomy S/P inguinal hernia repair S/P laparoscopic cholecystectomy S/P left colectomy S/P rotator cuff repair S/P vasectomy Social History household members: none Smoking Status: Former smoker how long ago did patient quit smokin years ago alcohol intake: never substance use type: does not use diet: low salt caffeine: Yes Type: coffee Number of servings: 4 ROS Constitutional Constitutional: Denies chills, fever(s) or weight gain ENT HEENT: Denies headache(s), nasal congestion or nasal discharge Cardiovascular Cardiovascular: Denies chest pain or palpitations Respiratory/Chest Respiratory/Chest: Denies cough, excessive phlegm production or shortness of breath with exertion Gastrointestinal Gastrointestinal: Denies abdominal pain, nausea or vomiting Genitourinary Genitourinary: Denies dysuria Musculoskeletal Musculoskeletal: Denies joint pain or joint swelling Integumentary Integumentary: Denies rash or wounds Neurologic Neurologic: Denies focal weakness, numbness or tingling Psychiatric Psychiatric: Denies anxiety, auditory hallucinations, depression, homicidal ideation or suicidal ideation Vital Signs Vital Signs Vital Signs: 01/06/23 18:55 01/06/23 18:55 Temperature 98.3 F Temperature Source Temporal Pulse Rate 76 Pulse Rhythm Irregular Pulse Strength Normal (2+) Respiratory Rate 18 Respiratory Effort Normal Non-Labored Respiratory Depth Normal Respiratory Pattern Normal Blood Pressure 133/64 H Blood Pressure Mean 87 Blood Pressure Source Monitor Blood Pressure Position Semi-Fowlers Blood Pressure Location Right Arm Pulse Ox 94 94 Oxygen Delivery Method Nasal Cannula Nasal Cannula Oxygen Flow Rate (L/min) 2 2 Physical Exam Const alert General Appearance: cooperative HEENT normocephalic Eyes PERRL and EOMs intact bilaterally Neck supple, no JVD and no carotid bruits Resp normal respiratory effort, normal air movement and clear to auscultation bilaterally Cardio regular rate and regular rhythm GI normal to inspection, nondistended, normoactive bowel sounds, non-tender and non-distended Extremity normal capillary refill General Extremity: Negative for edema Skin no rashes or lesions noted General Skin Exam: no breakdown Psych affect normal Appearance: appropriate Results Lab / Micro Data 01/07/23 07:37 01/07/23 07:37 Labs: Laboratory Results - last 24 hr 01/07/23 07:37: WBC 5.9, RBC 3.47 L, Hgb 11.1 L, Hct 34.5 L, MCV 99.4 H, MCH 32.0, MCHC 32.2, RDW Std Deviation 77.1 H, RDW Coeff of Jaciel 21.5 H, Plt Count 171, MPV 9.3, Immature Gran % (Auto) 0.200, Neut % (Auto) 68.1, Lymph % (Auto) 16.2 L, [place] % (Auto) 11.2 H, Eos % (Auto) 3.6, Baso % (Auto) 0.7, Absolute Neuts (auto) 4.0, Absolute Lymphs (auto) 0.95, Nucleated RBC % 0, Sodium 139, Potassium 3.6, Chloride 103, Carbon Dioxide 30.0, Anion Gap 6, BUN 13, Creatinine 0.50 L, Est GFR (MDRD) Af Amer 207, Est GFR (MDRD) Non-Af 171, BUN/Creatinine Ratio 26.2 H, Glucose 84, Calcium 8.2 L Assessment & Plan Assessment/Plan (1) Debility: (2) History of recent fall: (3) Rib fractures: (4) Compression fracture of L1 vertebra: (5) Compression fracture of L5 vertebra: (6) Rhabdomyolysis: (7) Atrial fibrillation: QUALIFIERS: Atrial fibrillation type: paroxysmal Qualified Code(s): I48.0 - Paroxysmal atrial fibrillation (8) Hypoxia: (9) Depression: (10) Chronic pain: (11) Hyperlipidemia: (12) Neuropathic pain: (13) Insomnia: (14) Iron deficiency anemia: (15) Acute on chronic heart failure with preserved ejection fraction: PLAN: Plan 82 year old male with below past medical history hospitalized for weakness, rhabdomyolysis, rib fractures, lumbar compression fractures, complicated by acute on chronic heart failure with preserved ejection fraction, admitted to TCU with debility, here for rehabilitation, strengthening, prior to discharge home alone. Debility - PT/OT. Pain - Tylenol 1000mg q8, Oxycodone 5mg q4h prn pain (6-10), Lidoderm topical daily. Bowel - Miralax 17gm bid, senna/colace 2 tablets bid, Magnesium citrate 300ml po daily prn. Adult immunization - Administer pneumonia vaccine, covid19 vaccine, flu vaccine as appropriate. DVT prophylaxis - on Xarelto. Atrial fibrillation - Amiodarone 200mg daily, Xarelto 20mg daily. Hyperlipidemia - Atorvastatin 40mg qhs. s/p kyphoplasty - Keflex 500mg q6h thru 01/12/2023. Vitamin D deficiency - D 1.25mg per week. BPH - Finasteride 5mg daily, Tamsulosin 0.4mg daily. Rheumatoid Arthritis - Hold Simlamari Aria, on Folic acid 2mg daily, prednisone 10mg daily prn. Chronic heart failure with preserved ejection fraction - Aldactone 25mg daily, Furosemide 80mg daily. Neuropathic pain - Gabapentin 300mg tid prn. Iron deficiency anemia - Ferrex 150mg daily. Nutrition - MVI daily, Tian 1 packet bid. 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 Leg cramps - Vitamin B complex 1 capsule daily.
[2023-01-07 08:58] LABS: Auer Rods 5.9; Toxic Granulation 5.9
[2023-01-07 08:59] LABS: Anisocytosis 2+; Differential Comment SCANNED
[2023-01-07] MEDS: Juven (unflavored) Packet 1 PACKET PO ×2 (09:22→18:18)
[2023-01-07] MEDS: Amiodarone 200 MG Tablet PO (09:23)
[2023-01-07] MEDS: Aspirin E.C. 81 MG Tablet PO (09:23)
[2023-01-07] MEDS: Folic Acid 1 MG Tablet 2 MG PO (09:25)
[2023-01-07] MEDS: Multivitamins,Therapeutic Tablet 1 TABLET PO (09:25)
[2023-01-07] MEDS: Spironolactone 25 MG Tablet PO (09:26)
[2023-01-07] MEDS: Vitamin B Comp W-C Capsule 1 CAP PO (09:26)
[2023-01-07] MEDS: Gabapentin 300 MG Capsule PO ×2 (09:38→18:28)
[2023-01-07] MEDS: Tuberculin,Purif.prot.deriv. 50 TU/ML Vial 0.1 ML ID (09:45)
[2023-01-07 14:30] VITALS: O2SAT 96
[2023-01-07 14:35] VITALS: BP 96/56; PULSE 77; RESP 14; TEMP 36.9; O2SAT 97
[2023-01-07] MEDS: Rivaroxaban 20 MG Tablet PO (18:19)
[2023-01-07] MEDS: Tamsulosin HCl 0.4 MG Capsule PO (18:19)
[2023-01-07] MEDS: Senna/Docusate Sodium 1 Tablet 2 TABLET PO (18:20)
[2023-01-07] MEDS: Mirtazapine 15 MG Tablet PO (21:47)
[2023-01-07] MEDS: traZODone 100 MG Tablet PO (21:47)
[2023-01-07] MEDS: Atorvastatin Calcium 40 MG Tablet PO (21:47)
[2023-01-08] MEDS: Polyethylene Glycol 3350 17 GM PACKET PO ×2 (06:52→18:03)
[2023-01-08] MEDS: Acetaminophen 500 MG Tablet 1000 MG PO ×3 (06:52→22:30)
[2023-01-08] MEDS: Furosemide 40 MG Tablet 80 MG PO (06:52)
[2023-01-08] MEDS: Cephalexin 500 MG Capsule PO ×4 (06:53→22:46)
[2023-01-08] MEDS: Finasteride 5 MG Tablet PO (06:53)
[2023-01-08] MEDS: Iron Polysaccharide Complex 150 MG CAPSULE PO (06:53)
[2023-01-08] MEDS: Senna/Docusate Sodium 1 Tablet 2 TABLET PO ×2 (06:54→18:03)
[2023-01-08 07:34] VITALS: O2SAT 95
[2023-01-08] MEDS: Folic Acid 1 MG Tablet 2 MG PO (09:27)
[2023-01-08] MEDS: Spironolactone 25 MG Tablet PO (09:27)
[2023-01-08] MEDS: Lidocaine 5% Patch 1 PATCH TOPICAL (09:27)
[2023-01-08] MEDS: Multivitamins,Therapeutic Tablet 1 TABLET PO (09:27)
[2023-01-08] MEDS: Juven (unflavored) Packet 1 PACKET PO ×2 (09:27→18:03)
[2023-01-08] MEDS: Gabapentin 300 MG Capsule PO ×2 (09:27→18:11)
[2023-01-08] MEDS: Amiodarone 200 MG Tablet PO (09:28)
[2023-01-08] MEDS: Aspirin E.C. 81 MG Tablet PO (09:28)
[2023-01-08] MEDS: Vitamin B Comp W-C Capsule 1 CAP PO (09:32)
[2023-01-08] MEDS: oxyCODONE 5 MG Tablet PO ×3 (12:36→22:29)
[2023-01-08 16:00] VITALS: BP 99/49; PULSE 70; RESP 18; TEMP 36.8; O2SAT 96
[2023-01-08] MEDS: Rivaroxaban 20 MG Tablet PO (18:02)
[2023-01-08] MEDS: Tamsulosin HCl 0.4 MG Capsule PO (18:03)
[2023-01-08] MEDS: traZODone 100 MG Tablet PO (22:30)
[2023-01-08] MEDS: Mirtazapine 15 MG Tablet PO (22:30)
[2023-01-08] MEDS: Atorvastatin Calcium 40 MG Tablet PO (22:30)
[2023-01-09] MEDS: Furosemide 40 MG Tablet 80 MG PO (06:20)
[2023-01-09] MEDS: Acetaminophen 500 MG Tablet 1000 MG PO ×3 (06:21→21:28)
[2023-01-09] MEDS: Iron Polysaccharide Complex 150 MG CAPSULE PO (06:21)
[2023-01-09] MEDS: Senna/Docusate Sodium 1 Tablet 2 TABLET PO ×2 (06:21→18:21)
[2023-01-09] MEDS: Cephalexin 500 MG Capsule PO ×4 (06:21→23:00)
[2023-01-09] MEDS: Finasteride 5 MG Tablet PO (06:24)
[2023-01-09] MEDS: Lidocaine 5% Patch 1 PATCH TOPICAL (09:03)
[2023-01-09] MEDS: Vitamin B Comp W-C Capsule 1 CAP PO (09:06)
[2023-01-09] MEDS: Aspirin E.C. 81 MG Tablet PO (09:06)
[2023-01-09] MEDS: Folic Acid 1 MG Tablet 2 MG PO (09:06)
[2023-01-09] MEDS: Amiodarone 200 MG Tablet PO (09:06)
[2023-01-09] MEDS: Spironolactone 25 MG Tablet PO (09:07)
[2023-01-09] MEDS: Multivitamins,Therapeutic Tablet 1 TABLET PO (09:07)
[2023-01-09] MEDS: Juven (unflavored) Packet 1 PACKET PO ×2 (09:09→18:20)
[2023-01-09 09:16] VITALS: BP 108/61; PULSE 79
--- NOTE | 2023-01-09 10:02 | PCM.PN.DRR ---
Documented by User: Erica Balbuena 01/09/23 11:01 TCU RX Drug Regimen Review Subjective/Objective Subjective/Objective: Subjective: TCU Admission. 82 YOM presented to ER with a fall. Hospitalized for weakness, rhabdomyolysis, rib fractures, lumbar compression fractures, complicated by acute on chronic heart failure with preserved ejection fraction. Admitted to TCU with debility for strengthening and rehabilitation. Objective: Allergies No Known Allergies Allergy (Verified 01/04/23 18:20) Current Medications Generic Name Dose Route Start Last Admin Trade Name Freq PRN Reason Stop Dose Admin Acetaminophen 1,000 mg 01/06/23 22:00 01/09/23 06:21 Acetaminophen 500 Mg Tablet PO 1,000 mg Q8 PATRICE Administration Amiodarone HCl 200 mg 01/07/23 08:00 01/09/23 09:06 Amiodarone 200 Mg Tablet PO 200 mg 0800 PATRICE Administration Aspirin 81 mg 01/07/23 08:00 01/09/23 09:06 Aspirin E.C. 81 Mg Tablet PO 81 mg DAILYCM PATRICE Administration Atorvastatin Calcium 40 mg 01/06/23 22:00 01/08/23 22:30 Atorvastatin Calcium 40 Mg Tablet PO 40 mg QHS PATRICE Administration Cephalexin 500 mg 01/06/23 18:15 01/09/23 06:21 Cephalexin 500 Mg Capsule PO 01/12/23 23:59 500 mg Q6 PATRICE Administration Ergocalciferol 1.25 mg 01/12/23 06:00 Ergocalciferol 1.25 Mg (50, 000 Unit) Capsule PO Q7D PATRICE Finasteride 5 mg 01/07/23 06:00 01/09/23 06:24 Finasteride 5 Mg Tablet PO 5 mg DAILY PATRICE Administration Folic Acid 2 mg 01/07/23 08:00 01/09/23 09:06 Folic Acid 1 Mg Tablet PO 2 mg DAILYCM PATRICE Administration Furosemide 80 mg 01/07/23 06:00 01/09/23 06:20 Furosemide 40 Mg Tablet PO 80 mg DAILY PATRICE Administration Gabapentin 300 mg 01/06/23 18:12 01/08/23 18:11 Gabapentin 300 Mg Capsule PO 300 mg TID PRN PRN Administration NERVE PAIN L-Arginine/L-Glutamine/Calcium HMB 1 packet 01/07/23 08:00 01/09/23 09:09 Tian (Unflavored) Packet PO 1 packet BIDCM PATRICE Administration Lidocaine 1 patch 01/07/23 06:00 01/09/23 09:03 Lidocaine 5% Patch TOPICAL 1 patch DAILY [facility] Administration Protocol Magnesium Citrate 300 ml 01/07/23 09:00 Magnesium Citrate 300 Ml PO DAILY PRN CONSTIPATION Mirtazapine 15 mg 01/06/23 22:00 01/08/23 22:30 Mirtazapine 15 Mg Tablet PO 15 mg QHS PATRICE Administration Multivitamins 1 tablet 01/07/23 08:00 01/09/23 09:07 Multivitamins,Therapeutic Tablet [facility] Administration Multivitamins 1 cap 01/07/23 08:00 01/09/23 09:06 Vitamin B Comp W-C Capsule PO 1 [facility] Administration Oxycodone HCl 5 mg 01/06/23 18:12 01/08/23 22:29 Oxycodone 5 Mg Tablet PO 5 mg Q4H PRN PRN Administration Pain Score 6-10 Polyethylene Glycol 17 gm 01/07/23 06:00 01/09/23 06:24 Polyethylene Glycol 3350 17 Gm Packet PO Not Given BID [facility] Polysaccharide Iron Complex 150 mg 01/07/23 06:00 01/09/23 06:21 Iron Polysaccharide Complex 150 Mg Capsule PO 150 mg DAILY [facility] Administration Prednisone 10 mg 01/06/23 18:12 Prednisone 10 Mg Tablet PO DAILY PRN RA FLARE UP Rivaroxaban 20 mg 01/07/23 17:00 01/08/23 18:02 Rivaroxaban 20 Mg Tablet PO 20 mg DINNER [facility] Administration Senna/Docusate Sodium 2 tablet 01/07/23 18:00 01/09/23 06:21 Senna/Docusate Sodium 1 Tablet PO 1 tablet BID [facility] Administration Sodium Chloride 10 - 40 ml 01/06/23 20:01 0.9% Saline Lock 10 Ml Syringe IV UD PRN SALINE FLUSH Spironolactone 25 mg 01/07/23 08:00 01/09/23 09:07 Spironolactone 25 Mg Tablet PO 25 mg 0800 [facility] Administration Tamsulosin HCl 0.4 mg 01/07/23 18:00 01/08/23 18:03 Tamsulosin Hcl 0.4 Mg Capsule PO 0.4 mg DAILY@1800 [facility] Administration Trazodone HCl 100 mg 01/06/23 22:00 01/08/23 22:30 Trazodone 100 Mg Tablet PO 100 mg QHS PATRICE Administration Tuberculin PPD 0.1 ml 01/14/23 10:00 Tuberculin,Purif.Prot.Deriv. 50 Tu/Ml Vial ID 01/14/23 10:01 X1 ONE Problem List (Updated 01/07/23 @ 08:[address] Yogesh Lebron MD) Acute on chronic heart failure with preserved ejection fraction (Acute) Iron deficiency anemia (Acute) Neuropathic pain (Acute) Hyperlipidemia (Acute) Chronic pain (Chronic) Depression (Acute) Hypoxia (Acute) Debility (Acute) Rib fractures (Acute) Rhabdomyolysis (Acute) History of recent fall (Acute) Compression fracture of L5 vertebra (Acute) Compression fracture of L1 vertebra (Acute) Atrial fibrillation (Chronic) Vital Signs Temp Pulse Resp BP Pulse Ox O2 Del Method O2 Flow Rate 98.2 F 79 18 108/61 96 Nasal Cannula 2.5 01/08/23 16:00 01/09/23 09:16 01/08/23 16:00 01/09/23 09:16 01/08/23 16:00 01/08/23 16:00 01/09/23 08:12 Oxygen Flow Rate (L/min) 2.5 Oxygen Delivery Method Nasal Cannula Weight: 63.9 kg Sodium 139 mmol/L (136-145) 01/07/23 07:37 Potassium 3.6 mmol/L (3.5-5.1) 01/07/23 07:37 Chloride 103 mmol/L (98-107) 01/07/23 07:37 Carbon Dioxide 30.0 mmol/L (21.0-32.0) 01/07/23 07:37 Anion Gap 6 (5-15) 01/07/23 07:37 BUN 13 mg/dL (7-18) 01/07/23 07:37 Creatinine 0.50 mg/dL (0.70-1.30) L 01/07/23 07:37 Est GFR (MDRD) Af Amer 207 mL/min (>60) 01/07/23 07:37 Est GFR (MDRD) Non-Af 171 mL/min (>60) 01/07/23 07:37 BUN/Creatinine Ratio 26.2 RATIO (10-20) H 01/07/23 07:37 Glucose 84 mg/dL (74-106) 01/07/23 07:37 Assessment/Plan: 1. Pain: acetaminophen 1000mg PO Q8, oxycodone 5mg PO Q4H PRN pain 6-10 and lidocaine 5% patch topical daily. Resident has received 9 doses of oxycodone for pain scores of 6-10 in the back. Please continue to monitor for increased pain, PRN usage, constipation, respiratory depression and rash. 2. Bowel: Miralax 17gm PO BID, senna/docusate 2T PO BID and magnesium citrate 300mL PO daily PRN constipation. Resident has not used any PRN doses. Last documented bowel movement was today. Please continue to monitor for constipation and PRN usage. 3. S/P kyphoplasty: cephalexin 500mg PO Q6 thru 01/12/23. Please continue to monitor S/S of infection, renal function (CrCl is 52 mL/min using adjusted SCr of 0.8) and diarrhea. 4. Atrial fibrillation/HFpEF/CAD (per PMH): amiodarone 200mg PO daily, aspirin 81mg PO daily, rivaroxaban 20mg PO dinner, spironolactone 25mg PO daily and furosemide 80mg PO daily. Please continue to monitor for BP (last 108/61), HR (last 79), sodium (last 139mmol/L), potassium (last 3.6mmol/L), renal function, swelling, S/S of bleeding and hemoglobin (last 11.1g/dL). 5. Hyperlipidemia: atorvastatin 40mg PO QHS. Please consider ordering a lipid panel as the last panel was from 08/2021 if clinically appropriate. Please continue to monitor LFTs (last 01/05/23) and muscle pain. 6. BPH: finasteride 5mg PO daily and tamsulosin 0.4mg PO daily. Please continue to monitor BP, S/S of BPH and rash. 7. Iron deficiency anemia: Ferrex 150mg PO daily. Please continue to monitor hemoglobin, constipation and dark stools. 8. Rheumatoid arthritis: folic acid 2mg PO daily and prednisone 10mg PO daily PRN RA flare up. Please continue to monitor for S/S of RA. 9. Vitamin D deficiency/leg cramps/nutrition: ergocalciferol 1.25mg PO weekly, vitamin B complex 1 capsule daily and multivitamin 1T PO daily. Please continue to monitor vitamin D levels (last 8/10/23). Assessment/Plan for indications treated with psychotropic medications: 1. Depression/appetite loss: mirtazapine 15mg PO QHS. Please see physician note regarding GDR. Resident with unintentional weight loss per manager cardiac note. Please continue to monitor for S/S of appetite loss, suicidal ideation (black box warning) and sodium. 2. Insomnia: trazodone 100mg PO QHS. Please see physician note regarding GDR. Please continue to monitor for suicidal ideation (black box warning), excessive drowsiness, dizziness and dry mouth. 3. Neuropathic pain: gabapentin 300mg PO TID PRN nerve pain. This medication is being used for nerve pain. GDR not appropriate. Resident has had 4 doses of gabapentin. Please continue to monitor for PRN usage, nerve pain, confusion, renal function and falls/fractures (BEERs medication). Medical chart and medication regimen reviewed. The following medication irregularities or issues were identified: *1. Atorvastatin 40mg PO QHS. Please consider ordering a lipid panel as the last panel was from 08/2021 if clinically appropriate. Thanks. Date Date of Note:: 01/09/23 Documented by User: Dr. Yogesh Lebron MD 01/09/23 11:06 TCU RX Drug Regimen Review Provider Comments Provider responsibility Provider Comments to Recommendations by Pharmacy: Agree
--- NOTE | 2023-01-09 10:42 | NURSING ---
Cake Icer Note; Activity Asset: Sharmaine Kemp is independent in his choice of daily activities. He watches tv, reads, has his smartphone and family and friends will visit. He did state he welcomes visit from the health careers instructor and therapy dog when available. He enjoys visits from people and we talked a lot about his time in the . Staff will remind him of daily activities and respect his right to say no.
[2023-01-09 13:32] VITALS: BP 113/66; PULSE 76; RESP 16; TEMP 36.3; O2SAT 96
[2023-01-09 13:41] VITALS: BMI 25.3
--- NOTE | 2023-01-09 16:15 | CASEMGMT ---
TCU Admit note: Met w/pt to complete initial assessment. Introduced self and role. Verified contact. Discussed code status, pt confirmed code status, declining to complete MOLST at this time. Pt's goal is to return home w/home health and additional DME as needed. Pt may need home O2 at discharge. Pt does live home alone, daughter supportive. SW will continue to follow for discharge planning. CALIN Estrada
[2023-01-09] MEDS: Rivaroxaban 20 MG Tablet PO (18:20)
[2023-01-09] MEDS: Tamsulosin HCl 0.4 MG Capsule PO (18:21)
[2023-01-09] MEDS: oxyCODONE 5 MG Tablet PO ×2 (18:27→22:31)
[2023-01-09] MEDS: Mirtazapine 15 MG Tablet PO (21:27)
[2023-01-09] MEDS: Atorvastatin Calcium 40 MG Tablet PO (21:28)
[2023-01-09] MEDS: traZODone 100 MG Tablet PO (22:31)
[2023-01-10] MEDS: oxyCODONE 5 MG Tablet PO ×4 (05:27→22:45)
[2023-01-10] MEDS: Furosemide 40 MG Tablet 80 MG PO (05:27)
[2023-01-10] MEDS: Finasteride 5 MG Tablet PO (05:28)
[2023-01-10] MEDS: Cephalexin 500 MG Capsule PO ×4 (05:28→22:45)
[2023-01-10] MEDS: Senna/Docusate Sodium 1 Tablet 2 TABLET PO ×2 (05:28→17:29)
[2023-01-10] MEDS: Iron Polysaccharide Complex 150 MG CAPSULE PO (05:28)
[2023-01-10] MEDS: Acetaminophen 500 MG Tablet 1000 MG PO ×3 (05:29→22:45)
[2023-01-10] MEDS: Lidocaine 5% Patch 1 PATCH TOPICAL (05:32)
[2023-01-10 05:36] VITALS: BP 115/63; PULSE 85; RESP 16; TEMP 36.8; O2SAT 95
[2023-01-10 07:00] VITALS: O2SAT 95
[2023-01-10] MEDS: Juven (unflavored) Packet 1 PACKET PO ×2 (08:25→17:30)
[2023-01-10] MEDS: Aspirin E.C. 81 MG Tablet PO (08:26)
[2023-01-10] MEDS: Vitamin B Comp W-C Capsule 1 CAP PO (08:26)
[2023-01-10] MEDS: Spironolactone 25 MG Tablet PO (08:26)
[2023-01-10] MEDS: Multivitamins,Therapeutic Tablet 1 TABLET PO (08:26)
[2023-01-10] MEDS: Amiodarone 200 MG Tablet PO (08:26)
[2023-01-10] MEDS: Folic Acid 1 MG Tablet 2 MG PO (08:26)
[2023-01-10 10:29] VITALS: BMI 25.3
[2023-01-10 13:45] VITALS: BP 104/60; PULSE 86; RESP 16; TEMP 36.8; O2SAT 96
[2023-01-10] MEDS: Rivaroxaban 20 MG Tablet PO (17:29)
[2023-01-10] MEDS: Tamsulosin HCl 0.4 MG Capsule PO (17:29)
[2023-01-10] MEDS: Atorvastatin Calcium 40 MG Tablet PO (22:45)
[2023-01-10] MEDS: traZODone 100 MG Tablet PO (22:46)
[2023-01-10] MEDS: Mirtazapine 15 MG Tablet PO (22:46)
[2023-01-11] MEDS: Lidocaine 5% Patch 1 PATCH TOPICAL (06:20)
[2023-01-11] MEDS: Iron Polysaccharide Complex 150 MG CAPSULE PO (06:21)
[2023-01-11] MEDS: Cephalexin 500 MG Capsule PO ×4 (06:21→23:30)
[2023-01-11] MEDS: Senna/Docusate Sodium 1 Tablet 2 TABLET PO ×2 (06:21→17:02)
[2023-01-11] MEDS: Furosemide 40 MG Tablet 80 MG PO (06:21)
[2023-01-11] MEDS: Acetaminophen 500 MG Tablet 1000 MG PO ×3 (06:21→21:51)
[2023-01-11] MEDS: Finasteride 5 MG Tablet PO (06:21)
[2023-01-11] MEDS: oxyCODONE 5 MG Tablet PO ×4 (06:22→20:23)
[2023-01-11 08:17] VITALS: O2SAT 95
[2023-01-11] MEDS: Juven (unflavored) Packet 1 PACKET PO ×2 (08:54→17:02)
[2023-01-11] MEDS: Spironolactone 25 MG Tablet PO (08:54)
[2023-01-11] MEDS: Vitamin B Comp W-C Capsule 1 CAP PO (08:54)
[2023-01-11] MEDS: Multivitamins,Therapeutic Tablet 1 TABLET PO (08:54)
[2023-01-11] MEDS: Amiodarone 200 MG Tablet PO (08:54)
[2023-01-11] MEDS: Aspirin E.C. 81 MG Tablet PO (08:54)
[2023-01-11] MEDS: Folic Acid 1 MG Tablet 2 MG PO (08:54)
--- NOTE | 2023-01-11 11:47 | CASEMGMT ---
Social Work Plan of are meeting held with pt and dgt Melanie present. Therapy discussed progress with PT and OT. KAITY updated that NRD with insurance is 01/12 and continued stay is not gauranteed. Pt lives at home alone. Pt dgt is supportive but does not provide 24 hour care. Back pain is a limiting factor in therapy at this time. Pt currently on 2L of oxygen but does not wear oxygen at home. Pt inquiring about [facility] benefits as pt once worked with the [facility] but has not in a long time. [facility] will submit a [facility] [place] services. Pt will continue with treatment plan at this time. SW to continue for d/c planning. Bhavya REAL
[2023-01-11 13:50] VITALS: BP 99/63; PULSE 85; RESP 16; TEMP 36.3; O2SAT 95
[2023-01-11] MEDS: Tamsulosin HCl 0.4 MG Capsule PO (17:02)
[2023-01-11] MEDS: Rivaroxaban 20 MG Tablet PO (17:02)
[2023-01-11 20:00] VITALS: PULSE 79; RESP 16; O2SAT 96
[2023-01-11] MEDS: Gabapentin 300 MG Capsule PO (20:23)
[2023-01-11] MEDS: Mirtazapine 15 MG Tablet PO (21:50)
[2023-01-11] MEDS: Atorvastatin Calcium 40 MG Tablet PO (21:50)
[2023-01-11] MEDS: traZODone 100 MG Tablet PO (21:50)
[2023-01-12] MEDS: Lidocaine 5% Patch 1 PATCH TOPICAL (05:21)
[2023-01-12] MEDS: oxyCODONE 5 MG Tablet PO ×3 (05:22→20:54)
[2023-01-12] MEDS: Gabapentin 300 MG Capsule PO ×3 (05:22→20:59)
[2023-01-12] MEDS: Finasteride 5 MG Tablet PO (05:22)
[2023-01-12] MEDS: Iron Polysaccharide Complex 150 MG CAPSULE PO (05:23)
[2023-01-12] MEDS: Senna/Docusate Sodium 1 Tablet 2 TABLET PO ×2 (05:23→17:27)
[2023-01-12] MEDS: Cephalexin 500 MG Capsule PO ×3 (05:23→17:27)
[2023-01-12] MEDS: Furosemide 40 MG Tablet PO (05:23)
[2023-01-12] MEDS: Ergocalciferol 1.25 MG (50, 000 UNIT) Capsule PO (05:23)
[2023-01-12] MEDS: Acetaminophen 500 MG Tablet 1000 MG PO ×3 (06:51→22:41)
[2023-01-12 07:35] VITALS: O2SAT 94
[2023-01-12 08:00] VITALS: BP 102/58; PULSE 76; O2SAT 90
[2023-01-12] MEDS: Spironolactone 25 MG Tablet PO (08:11)
[2023-01-12] MEDS: Amiodarone 200 MG Tablet PO (08:11)
[2023-01-12] MEDS: Folic Acid 1 MG Tablet 2 MG PO (08:12)
[2023-01-12] MEDS: Multivitamins,Therapeutic Tablet 1 TABLET PO (08:12)
[2023-01-12] MEDS: Aspirin E.C. 81 MG Tablet PO (08:12)
[2023-01-12] MEDS: Vitamin B Comp W-C Capsule 1 CAP PO (08:12)
[2023-01-12] MEDS: Juven (unflavored) Packet 1 PACKET PO ×2 (08:13→17:25)
--- NOTE | 2023-01-12 10:46 | NURSING ---
PT WILL NOT HAVE SIMPONI ARIA INJECTION TOMORROW DUE TO INSURANCE WILL NOT PAY FOR IT WHILE ON TCU. EXPLAINED TO PT AND PT UNDERSTOOD AND STATED HE WOULD MAKE APPOINTMENT AFTER DISCHARGE. RN AWARE
[2023-01-12] MEDS: Hydrocortisone 2.5% Crm 1 APPLIC TOPICAL (10:55)
[2023-01-12 11:00] VITALS: PULSE 84; RESP 18; O2SAT 92
--- NOTE | 2023-01-12 15:08 | CHAPLAIN ---
Type of Pastoral Visit _x__ Initial Visit ___ Follow-up Visit ___ On-call Visit ___ General Patient Visit ___ Spiritual Assessment ___ Family Conference ___ Bereavement ___ Rapid Response ___ Code Blue ___ Other (describe below) Pastoral Care Referral From _x__ Patient ___ Family ___ Nurse ___ Physician ___ Housing Development Specialist ___ Evaporator Operator Molasses ___ Other (describe below) Sacrament/Intervention _x__ Active listening ___ Anointing ___ Anglican ___ Bereavement ___ Communion ___ Enriqueta exploration ___ ___ Life review ___ Prayer ___ Reconciliation ___ Sacrament of Sick ___ Supportive presence ___ Wedding ___ Other (describe below) Pastoral Comments follow up to patient who was in PCU; pt reports small steps of increasing strength; pt states that he is determined to work hard and get back to his normal and to his home; pt reviews some early history of the move to [place] and his love of reading, including books of enriqueta; PT is ready to work with patient and so visit ends
[2023-01-12 15:18] VITALS: BP 98/56; PULSE 80; RESP 14; TEMP 36.8; O2SAT 92
[2023-01-12] MEDS: Rivaroxaban 20 MG Tablet PO (17:26)
[2023-01-12] MEDS: Tamsulosin HCl 0.4 MG Capsule PO (17:26)
[2023-01-12 18:43] VITALS: BP 116/56
[2023-01-12] MEDS: Mirtazapine 15 MG Tablet PO (22:41)
[2023-01-12] MEDS: Atorvastatin Calcium 40 MG Tablet PO (22:41)
[2023-01-12] MEDS: traZODone 100 MG Tablet PO (22:41)
[2023-01-13] MEDS: Acetaminophen 500 MG Tablet 1000 MG PO ×3 (05:35→22:03)
[2023-01-13] MEDS: Gabapentin 300 MG Capsule PO ×3 (05:35→22:00)
[2023-01-13] MEDS: oxyCODONE 5 MG Tablet PO ×3 (05:35→22:00)
[2023-01-13] MEDS: Iron Polysaccharide Complex 150 MG CAPSULE PO (05:35)
[2023-01-13] MEDS: Finasteride 5 MG Tablet PO (05:36)
[2023-01-13] MEDS: Furosemide 40 MG Tablet PO (05:36)
[2023-01-13] MEDS: Multivitamins,Therapeutic Tablet 1 TABLET PO (07:56)
[2023-01-13] MEDS: Aspirin E.C. 81 MG Tablet PO (07:56)
[2023-01-13] MEDS: Spironolactone 25 MG Tablet PO (07:56)
[2023-01-13] MEDS: Vitamin B Comp W-C Capsule 1 CAP PO (07:56)
[2023-01-13] MEDS: Folic Acid 1 MG Tablet 2 MG PO (07:56)
[2023-01-13] MEDS: Amiodarone 200 MG Tablet PO (07:56)
[2023-01-13] MEDS: Juven (unflavored) Packet 1 PACKET PO ×2 (07:57→17:24)
[2023-01-13] MEDS: Lidocaine 5% Patch 1 PATCH TOPICAL (08:00)
--- NOTE | 2023-01-13 09:26 | NURSING ---
Telecommunications Sales Representative Note; MDS Complete
[2023-01-13 12:28] VITALS: O2SAT 95
[2023-01-13 15:12] VITALS: BP 104/59; PULSE 78; RESP 16; TEMP 36.8; O2SAT 93
[2023-01-13] MEDS: Rivaroxaban 20 MG Tablet PO (17:24)
[2023-01-13] MEDS: Tamsulosin HCl 0.4 MG Capsule PO (17:24)
[2023-01-13] MEDS: Senna/Docusate Sodium 1 Tablet 2 TABLET PO (17:24)
[2023-01-13 21:45] VITALS: O2SAT 94
[2023-01-13] MEDS: Atorvastatin Calcium 40 MG Tablet PO (22:06)
[2023-01-13] MEDS: Mirtazapine 15 MG Tablet PO (23:13)
[2023-01-13] MEDS: traZODone 100 MG Tablet PO (23:13)
[2023-01-14] MEDS: Gabapentin 300 MG Capsule PO ×3 (05:57→20:19)
[2023-01-14] MEDS: oxyCODONE 5 MG Tablet PO ×4 (05:57→21:12)
[2023-01-14] MEDS: Acetaminophen 500 MG Tablet 1000 MG PO ×3 (05:57→20:20)
[2023-01-14] MEDS: Iron Polysaccharide Complex 150 MG CAPSULE PO (05:58)
[2023-01-14] MEDS: Senna/Docusate Sodium 1 Tablet 2 TABLET PO ×2 (05:58→17:26)
[2023-01-14] MEDS: Finasteride 5 MG Tablet PO (06:01)
[2023-01-14] MEDS: Furosemide 40 MG Tablet PO (06:01)
[2023-01-14 06:45] LABS: Absolute Lymphocyte Count 1.42 X10^3/uL (0.83-4.51); Absolute Neutrophil Count 3.1 X10^3/uL (2.0-7.7); Basophil# 0.04 X10^3/uL; Basophil% 0.7 % (0-1); Eosinophils% 5.4 % (0-5); Hematocrit 30.8 % (40-54); Hemoglobin 9.9 g/dL (13.0-16.5); Lymphocyte # 1.42 X10^3/ul (0.83-4.51); Lymphocyte % 25.5 % (19-41); Mean Corp Hgb Conc 32.1 g/dL (32-36); Mean Corpuscular Hgb 31.8 pg (27.0-32.0); Mean Platelet Vol. 9.2 fl (6.2-12.0); Monocyte# 0.66 X10^3/uL; Monocyte% 11.9 % (0-10); NRBC Flagged by Analyzer 0 % (0-5); Neutrophil # 3.12 X10^3/uL (2.7-7.7); Neutrophil % 56.1 % (47-70); POSITIVE MORPHOLOGY YES; Platelet Count 194 K/mm3 (150-450); RBC Distribution Width CV 20.5 % (11.6-14.6); RBC Distribution Width SD 75.7 fl (35.1-43.9); Red Blood Count 3.11 M/mm3 (4.6-6.2); White Blood Count 5.6 K/mm3 (4.4-11.0)
[2023-01-14 06:47] LABS: Differential Indicated SCAN CRITERIA MET
[2023-01-14 06:50] VITALS: O2SAT 86
[2023-01-14 06:59] LABS: Differential Comment SCANNED
[2023-01-14 07:00] LABS: Anisocytosis 1+; Macrocytosis 1+
[2023-01-14 07:11] LABS: Anion Gap 3 (5-15); BUN 31 mg/dL (7-18); BUN/Creat Ratio 49.5 RATIO (10-20); Calcium,Total 8.5 mg/dL (8.5-10.1); Chloride 103 mmol/L (98-107); Creatinine, Serum 0.63 mg/dL (0.70-1.30); EST Glomerular Filtration Rate 131 mL/min (>60); Est Glom Filt Rate - Afr Amer 159 mL/min (>60); Estimated Creatinine Clearance 43.58 ml/min; Glucose 93 mg/dL (74-106); Potassium 3.7 mmol/L (3.5-5.1); Sodium Level 139 mmol/L (136-145)
[2023-01-14 07:18] VITALS: O2SAT 93
--- NOTE | 2023-01-14 07:18 | CPS ---
patient increased to 2 lpm.
[2023-01-14] MEDS: Multivitamins,Therapeutic Tablet 1 TABLET PO (08:04)
[2023-01-14] MEDS: Juven (unflavored) Packet 1 PACKET PO ×2 (08:04→17:24)
[2023-01-14] MEDS: Vitamin B Comp W-C Capsule 1 CAP PO (08:05)
[2023-01-14] MEDS: Aspirin E.C. 81 MG Tablet PO (08:05)
[2023-01-14] MEDS: Folic Acid 1 MG Tablet 2 MG PO (08:05)
[2023-01-14] MEDS: Amiodarone 200 MG Tablet PO (08:05)
[2023-01-14] MEDS: Spironolactone 25 MG Tablet PO (08:08)
[2023-01-14] MEDS: Lidocaine 5% Patch 1 PATCH TOPICAL (08:08)
[2023-01-14] MEDS: Tuberculin,Purif.prot.deriv. 50 TU/ML Vial 0.1 ML ID (12:16)
[2023-01-14 13:33] VITALS: BP 112/54; PULSE 68; RESP 16; TEMP 36.3; O2SAT 95
[2023-01-14] MEDS: Rivaroxaban 20 MG Tablet PO (17:24)
[2023-01-14] MEDS: Tamsulosin HCl 0.4 MG Capsule PO (18:28)
[2023-01-14] MEDS: Mirtazapine 15 MG Tablet PO (20:20)
[2023-01-14] MEDS: traZODone 100 MG Tablet PO (20:20)
[2023-01-14] MEDS: Atorvastatin Calcium 40 MG Tablet PO (20:20)
[2023-01-15 05:32] LABS: Hematocrit 31.4 % (40-54); Hemoglobin 9.7 g/dL (13.0-16.5)
[2023-01-15] MEDS: Acetaminophen 500 MG Tablet 1000 MG PO ×3 (05:58→21:15)
[2023-01-15] MEDS: oxyCODONE 5 MG Tablet PO ×4 (05:58→21:14)
[2023-01-15] MEDS: Finasteride 5 MG Tablet PO (05:59)
[2023-01-15] MEDS: Iron Polysaccharide Complex 150 MG CAPSULE PO (05:59)
[2023-01-15] MEDS: Furosemide 40 MG Tablet PO (05:59)
[2023-01-15] MEDS: Senna/Docusate Sodium 1 Tablet 2 TABLET PO ×2 (05:59→17:10)
[2023-01-15] MEDS: Lidocaine 5% Patch 1 PATCH TOPICAL (06:02)
[2023-01-15] MEDS: Gabapentin 300 MG Capsule PO ×3 (06:03→21:14)
[2023-01-15] MEDS: Polyethylene Glycol 3350 17 GM PACKET PO ×2 (06:04→17:09)
[2023-01-15 07:35] VITALS: O2SAT 94
[2023-01-15] MEDS: Juven (unflavored) Packet 1 PACKET PO ×2 (08:22→17:09)
[2023-01-15] MEDS: Vitamin B Comp W-C Capsule 1 CAP PO (08:23)
[2023-01-15] MEDS: Multivitamins,Therapeutic Tablet 1 TABLET PO (08:23)
[2023-01-15] MEDS: Folic Acid 1 MG Tablet 2 MG PO (08:23)
[2023-01-15] MEDS: Aspirin E.C. 81 MG Tablet PO (08:24)
[2023-01-15] MEDS: Amiodarone 200 MG Tablet PO (08:24)
[2023-01-15] MEDS: Spironolactone 25 MG Tablet PO (08:28)
[2023-01-15 14:42] VITALS: BP 103/49; PULSE 65; RESP 16; TEMP 36.3; O2SAT 93
[2023-01-15] MEDS: Tamsulosin HCl 0.4 MG Capsule PO (17:09)
[2023-01-15] MEDS: Rivaroxaban 20 MG Tablet PO (17:09)
[2023-01-15] MEDS: traZODone 100 MG Tablet PO (21:16)
[2023-01-15] MEDS: Atorvastatin Calcium 40 MG Tablet PO (21:16)
[2023-01-15] MEDS: Mirtazapine 15 MG Tablet PO (21:16)
--- NOTE | 2023-01-15 21:27 | NURSING ---
Pt states during medpass he has had difficulty swallowing today, added applesauce to meds and seemed to help.
[2023-01-16] MEDS: oxyCODONE 5 MG Tablet PO ×3 (05:16→21:31)
[2023-01-16] MEDS: Lidocaine 5% Patch 1 PATCH TOPICAL (05:16)
[2023-01-16] MEDS: Gabapentin 300 MG Capsule PO ×3 (05:17→21:29)
[2023-01-16] MEDS: Polyethylene Glycol 3350 17 GM PACKET PO ×2 (05:17→17:00)
[2023-01-16] MEDS: Acetaminophen 500 MG Tablet 1000 MG PO ×3 (05:18→21:29)
[2023-01-16] MEDS: Senna/Docusate Sodium 1 Tablet 2 TABLET PO ×2 (05:18→17:00)
[2023-01-16] MEDS: Finasteride 5 MG Tablet PO (05:19)
[2023-01-16] MEDS: Iron Polysaccharide Complex 150 MG CAPSULE PO (05:19)
[2023-01-16] MEDS: Furosemide 40 MG Tablet PO (05:19)
[2023-01-16 05:50] LABS: Hemoglobin 9.8 g/dL (13.0-16.5)
[2023-01-16] MEDS: Vitamin B Comp W-C Capsule 1 CAP PO (08:00)
[2023-01-16] MEDS: Amiodarone 200 MG Tablet PO (08:00)
[2023-01-16] MEDS: Juven (unflavored) Packet 1 PACKET PO ×2 (08:00→16:59)
[2023-01-16] MEDS: Folic Acid 1 MG Tablet 2 MG PO (08:00)
[2023-01-16] MEDS: Aspirin E.C. 81 MG Tablet PO (08:00)
[2023-01-16] MEDS: Multivitamins,Therapeutic Tablet 1 TABLET PO (08:01)
[2023-01-16] MEDS: Spironolactone 25 MG Tablet PO (08:01)
[2023-01-16 08:56] VITALS: O2SAT 94
[2023-01-16 13:26] VITALS: BP 102/53; PULSE 89; RESP 18; TEMP 36.9; O2SAT 95
[2023-01-16] MEDS: Tamsulosin HCl 0.4 MG Capsule PO (17:00)
[2023-01-16] MEDS: Rivaroxaban 15 MG Tablet PO (17:00)
[2023-01-16] MEDS: Atorvastatin Calcium 40 MG Tablet PO (21:29)
[2023-01-16] MEDS: Mirtazapine 15 MG Tablet PO (21:29)
[2023-01-16] MEDS: traZODone 100 MG Tablet PO (22:54)
[2023-01-17] MEDS: Lidocaine 5% Patch 1 PATCH TOPICAL (05:40)
[2023-01-17] MEDS: Gabapentin 300 MG Capsule PO ×3 (05:41→21:40)
[2023-01-17] MEDS: Finasteride 5 MG Tablet PO (05:41)
[2023-01-17] MEDS: Senna/Docusate Sodium 1 Tablet 2 TABLET PO ×2 (05:42→16:46)
[2023-01-17] MEDS: Furosemide 40 MG Tablet PO (05:42)
[2023-01-17] MEDS: Acetaminophen 500 MG Tablet 1000 MG PO ×3 (05:42→21:41)
[2023-01-17] MEDS: Iron Polysaccharide Complex 150 MG CAPSULE PO (05:43)
[2023-01-17] MEDS: oxyCODONE 5 MG Tablet PO ×3 (05:54→21:40)
[2023-01-17 07:54] VITALS: O2SAT 90
[2023-01-17] MEDS: Multivitamins,Therapeutic Tablet 1 TABLET PO (08:32)
[2023-01-17] MEDS: Vitamin B Comp W-C Capsule 1 CAP PO (08:32)
[2023-01-17] MEDS: Aspirin E.C. 81 MG Tablet PO (08:32)
[2023-01-17] MEDS: Amiodarone 200 MG Tablet PO (08:32)
[2023-01-17] MEDS: Folic Acid 1 MG Tablet 2 MG PO (08:32)
[2023-01-17] MEDS: Juven (unflavored) Packet 1 PACKET PO ×2 (08:33→16:45)
[2023-01-17] MEDS: Spironolactone 25 MG Tablet PO (08:33)
[2023-01-17 08:38] VITALS: BP 132/57; PULSE 66
[2023-01-17 09:50] VITALS: PULSE 73; RESP 18; O2SAT 92
[2023-01-17 11:36] VITALS: BMI 25.4
--- NOTE | 2023-01-17 13:34 | MDS.RN ---
Information for the mds was obtained from review of the clinical record, interview of resident, staff, and direct observation of resident's care.
[2023-01-17 14:34] VITALS: BP 92/52; PULSE 66; RESP 16; TEMP 36.6; O2SAT 92
[2023-01-17] MEDS: Tamsulosin HCl 0.4 MG Capsule PO (16:46)
[2023-01-17] MEDS: Rivaroxaban 15 MG Tablet PO (16:47)
[2023-01-17] MEDS: Atorvastatin Calcium 40 MG Tablet PO (21:42)
[2023-01-17] MEDS: traZODone 100 MG Tablet PO (23:12)
[2023-01-17] MEDS: Mirtazapine 15 MG Tablet PO (23:12)
[2023-01-18] MEDS: Gabapentin 300 MG Capsule PO ×3 (05:33→22:28)
[2023-01-18] MEDS: oxyCODONE 5 MG Tablet PO ×3 (05:33→22:28)
[2023-01-18] MEDS: Iron Polysaccharide Complex 150 MG CAPSULE PO (05:34)
[2023-01-18] MEDS: Senna/Docusate Sodium 1 Tablet 2 TABLET PO ×2 (05:34→18:00)
[2023-01-18] MEDS: Furosemide 40 MG Tablet PO (05:35)
[2023-01-18] MEDS: Finasteride 5 MG Tablet PO (05:35)
[2023-01-18] MEDS: Acetaminophen 500 MG Tablet 1000 MG PO ×3 (05:35→22:30)
[2023-01-18] MEDS: Lidocaine 5% Patch 1 PATCH TOPICAL (05:35)
[2023-01-18] MEDS: Juven (unflavored) Packet 1 PACKET PO ×2 (08:45→17:59)
[2023-01-18] MEDS: Amiodarone 200 MG Tablet PO (08:46)
[2023-01-18] MEDS: Aspirin E.C. 81 MG Tablet PO (08:46)
[2023-01-18] MEDS: Spironolactone 25 MG Tablet PO (08:46)
[2023-01-18] MEDS: Folic Acid 1 MG Tablet 2 MG PO (08:46)
[2023-01-18] MEDS: Vitamin B Comp W-C Capsule 1 CAP PO (08:46)
[2023-01-18] MEDS: Multivitamins,Therapeutic Tablet 1 TABLET PO (08:47)
[2023-01-18 08:56] VITALS: BP 110/55; PULSE 69
--- NOTE | 2023-01-18 13:17 | CHAPLAIN ---
Type of Pastoral Visit ___ Initial Visit ___ Follow-up Visit ___ On-call Visit ___ General Patient Visit ___ Spiritual Assessment ___ Family Conference ___ Bereavement ___ Rapid Response ___ Code Blue ___ Other (describe below) Pastoral Care Referral From ___ Patient ___ Family ___ Nurse ___ Physician ___ Vegetable Harvest Machine Operator ___ Dean Of Admissions ___ Other (describe below) Sacrament/Intervention ___ Active listening ___ Anointing ___ Amish ___ Bereavement ___ Communion ___ Enriqueta exploration ___ ___ Life review ___ Prayer ___ Reconciliation ___ Sacrament of Sick ___ Supportive presence ___ Wedding ___ Other (describe below) Pastoral Comments a brief follow up to say olga while in the unit; pt states that improvement is coming slowly and otherwise not much more to report; offer of ongoing support given
[2023-01-18 13:55] VITALS: O2SAT 91
[2023-01-18 15:21] VITALS: BP 100/54; PULSE 65; RESP 16; TEMP 36.6; O2SAT 94
[2023-01-18] MEDS: Rivaroxaban 15 MG Tablet PO (17:59)
[2023-01-18] MEDS: Tamsulosin HCl 0.4 MG Capsule PO (18:00)
[2023-01-18 20:15] VITALS: O2SAT 95
[2023-01-18] MEDS: Atorvastatin Calcium 40 MG Tablet PO (22:30)
[2023-01-18] MEDS: traZODone 100 MG Tablet PO (23:20)
[2023-01-18] MEDS: Mirtazapine 15 MG Tablet PO (23:20)
[2023-01-19] MEDS: Acetaminophen 500 MG Tablet 1000 MG PO ×3 (05:28→22:04)
[2023-01-19] MEDS: Senna/Docusate Sodium 1 Tablet 2 TABLET PO ×2 (05:28→17:43)
[2023-01-19] MEDS: oxyCODONE 5 MG Tablet PO ×4 (05:28→22:05)
[2023-01-19] MEDS: Finasteride 5 MG Tablet PO (05:29)
[2023-01-19] MEDS: Iron Polysaccharide Complex 150 MG CAPSULE PO (05:29)
[2023-01-19] MEDS: Furosemide 40 MG Tablet PO (05:29)
[2023-01-19] MEDS: Ergocalciferol 1.25 MG (50, 000 UNIT) Capsule PO (05:31)
[2023-01-19] MEDS: Gabapentin 300 MG Capsule PO ×3 (05:31→22:05)
[2023-01-19] MEDS: Vitamin B Comp W-C Capsule 1 CAP PO (08:43)
[2023-01-19] MEDS: Aspirin E.C. 81 MG Tablet PO (08:43)
[2023-01-19] MEDS: Juven (unflavored) Packet 1 PACKET PO ×2 (08:43→17:43)
[2023-01-19] MEDS: Folic Acid 1 MG Tablet 2 MG PO (08:43)
[2023-01-19] MEDS: Spironolactone 25 MG Tablet PO (08:43)
[2023-01-19] MEDS: Amiodarone 200 MG Tablet PO (08:43)
[2023-01-19] MEDS: Multivitamins,Therapeutic Tablet 1 TABLET PO (08:43)
[2023-01-19] MEDS: Lidocaine 5% Patch 1 PATCH TOPICAL (13:20)
[2023-01-19 13:23] VITALS: BP 98/48; PULSE 70; RESP 16; TEMP 37; O2SAT 91
--- NOTE | 2023-01-19 15:01 | CHAPLAIN ---
Type of Pastoral Visit ___ Initial Visit _x__ Follow-up Visit ___ On-call Visit ___ General Patient Visit ___ Spiritual Assessment ___ Family Conference ___ Bereavement ___ Rapid Response ___ Code Blue ___ Other (describe below) Pastoral Care Referral From _x__ Patient ___ Family ___ Nurse ___ Physician ___ Motel Maid ___ Mophead Sewer ___ Other (describe below) Sacrament/Intervention _x__ Active listening ___ Anointing ___ Worship ___ Bereavement ___ Communion ___ Enriqueta exploration ___ _x__ Life review ___ Prayer ___ Reconciliation ___ Sacrament of Sick _x__ Supportive presence ___ Wedding ___ Other (describe below) Pastoral Comments this visit was longer than the previous day when it was short; pt gave some life review and talked about his family and his work; 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
[2023-01-19] MEDS: Rivaroxaban 15 MG Tablet PO (17:43)
[2023-01-19] MEDS: Tamsulosin HCl 0.4 MG Capsule PO (17:43)
[2023-01-19] MEDS: Baclofen 10 MG Tablet 5 MG PO (18:34)
[2023-01-19] MEDS: Atorvastatin Calcium 40 MG Tablet PO (22:05)
[2023-01-19] MEDS: Mirtazapine 15 MG Tablet PO (23:09)
[2023-01-19] MEDS: traZODone 100 MG Tablet PO (23:09)
[2023-01-20] MEDS: oxyCODONE 5 MG Tablet PO ×4 (05:34→19:59)
[2023-01-20] MEDS: Gabapentin 300 MG Capsule PO ×3 (05:34→23:27)
[2023-01-20] MEDS: Acetaminophen 500 MG Tablet 1000 MG PO ×3 (05:35→23:28)
[2023-01-20] MEDS: Baclofen 10 MG Tablet 5 MG PO ×3 (05:35→23:28)
[2023-01-20] MEDS: Senna/Docusate Sodium 1 Tablet 2 TABLET PO ×2 (05:35→18:12)
[2023-01-20] MEDS: Furosemide 40 MG Tablet PO (05:36)
[2023-01-20] MEDS: Iron Polysaccharide Complex 150 MG CAPSULE PO (05:36)
[2023-01-20] MEDS: Finasteride 5 MG Tablet PO (05:36)
[2023-01-20] MEDS: Lidocaine 5% Patch 1 PATCH TOPICAL (05:39)
[2023-01-20] MEDS: Spironolactone 25 MG Tablet PO (09:43)
[2023-01-20] MEDS: Juven (unflavored) Packet 1 PACKET PO ×2 (09:43→18:12)
[2023-01-20] MEDS: Aspirin E.C. 81 MG Tablet PO (09:43)
[2023-01-20] MEDS: Folic Acid 1 MG Tablet 2 MG PO (09:43)
[2023-01-20] MEDS: Amiodarone 200 MG Tablet PO (09:43)
[2023-01-20] MEDS: Vitamin B Comp W-C Capsule 1 CAP PO (09:44)
[2023-01-20] MEDS: Multivitamins,Therapeutic Tablet 1 TABLET PO (09:44)
[2023-01-20 16:00] VITALS: BP 87/56; PULSE 76; RESP 14; TEMP 36.7; O2SAT 93
[2023-01-20 17:08] VITALS: O2SAT 93
[2023-01-20] MEDS: Tamsulosin HCl 0.4 MG Capsule PO (18:12)
[2023-01-20] MEDS: Rivaroxaban 15 MG Tablet PO (18:13)
[2023-01-20 20:00] VITALS: O2SAT 95
[2023-01-20] MEDS: Atorvastatin Calcium 40 MG Tablet PO (23:27)
[2023-01-20] MEDS: Mirtazapine 15 MG Tablet PO (23:28)
[2023-01-20] MEDS: traZODone 100 MG Tablet PO (23:29)
[2023-01-21] MEDS: oxyCODONE 5 MG Tablet PO ×2 (00:06→23:31)
[2023-01-21 06:20] VITALS: BP 147/86; PULSE 93; RESP 18; O2SAT 89
--- NOTE | 2023-01-21 06:20 | NURSING ---
Pt heard calling out for help, found in BR by CONVENTION MANAGER, pt states he was getting up off toilet and lost his balance. Denies LOC, but states he hit his head a little bit in the shower. Alert and oriented x3, Pupils reactive and equal, hand grasps and pedal pushes equal, pt states he feels slight dizziness. Skin tears noted to bilat elbows and top of right hand. Vitals done, pt assisted to stand x3 asst, back to bed with walker, pt knees buckled one time during walk to bed, able to get into bed. Skin tears cleaned and applied steri strips, gauze and wrapped with kerlix. Pt remains alert and oriented, answers questions appropriately. POX noted to be 89% at first, after walking to bed, pox increased to 92% on room air.
[2023-01-21 06:35] VITALS: BP 129/63; PULSE 81; RESP 16; O2SAT 92
--- NOTE | 2023-01-21 06:44 | NURSING ---
0645: notified of pt falls, injuries, pt on Xarelto and notified of hitting head and small knot to back of head noted now. New order for ct head and neuro checks. Pt will need to go to ED for that. 0650: RT in to check pox, pt placed on 2L per RT for pox 88%. 0700: Report called to ELROY Dennison in ED. 0715: Pt transported to ED via bed. 0750: Daughter Melanie notified of pt fall and transport to ED for Head CT.
[2023-01-21 06:50] VITALS: O2SAT 91
[2023-01-21 07:04] LABS: Absolute Lymphocyte Count 2.04 X10^3/uL (0.83-4.51); Absolute Neutrophil Count 2.8 X10^3/uL (2.0-7.7); Basophil# 0.07 X10^3/uL; Basophil% 1.1 % (0-1); Eosinophil# 0.39 X10^3/uL; Eosinophils% 6.3 % (0-5); Hematocrit 33.6 % (40-54); Hemoglobin 10.7 g/dL (13.0-16.5); Lymphocyte # 2.04 X10^3/ul (0.83-4.51); Mean Corp Hgb Conc 31.8 g/dL (32-36); Mean Corpuscular Hgb 31.7 pg (27.0-32.0); Mean Corpuscular Volume 99.4 fL (80-94); Mean Platelet Vol. 9.6 fl (6.2-12.0); Monocyte# 0.85 X10^3/uL; Monocyte% 13.7 % (0-10); NRBC Flagged by Analyzer 0 % (0-5); Neutrophil # 2.83 X10^3/uL (2.7-7.7); Neutrophil % 45.7 % (47-70); POSITIVE MORPHOLOGY YES; Platelet Count 232 K/mm3 (150-450); RBC Distribution Width CV 20.6 % (11.6-14.6); RBC Distribution Width SD 77.1 fl (35.1-43.9); Red Blood Count 3.38 M/mm3 (4.6-6.2); White Blood Count 6.2 K/mm3 (4.4-11.0)
[2023-01-21 07:51] LABS: Differential Indicated SCAN CRITERIA MET
[2023-01-21 07:53] LABS: Anion Gap 6 (5-15); BUN 35 mg/dL (7-18); Calcium,Total 8.6 mg/dL (8.5-10.1); Chloride 101 mmol/L (98-107); EST Glomerular Filtration Rate 115 mL/min (>60); Est Glom Filt Rate - Afr Amer 140 mL/min (>60); Estimated Creatinine Clearance 43.58 ml/min; Glucose 100 mg/dL (74-106); Sodium Level 138 mmol/L (136-145)
--- NOTE | 2023-01-21 09:21 | NURSING ---
Addendum entered by Tran Reddy 01/21/23 11:04: When picking patient up from ER the nurse stated that patient when sleeping his SPO2 dropped to 85% so was concerned with possibly having some sleep apnea. Original Note: Patient return to floor via bed at 0915, no new orders, daughter at bedside and updated with patient results from ER visit.
[2023-01-21] MEDS: Iron Polysaccharide Complex 150 MG CAPSULE PO (09:44)
[2023-01-21] MEDS: Furosemide 40 MG Tablet PO (09:45)
[2023-01-21] MEDS: Lidocaine 5% Patch 1 PATCH TOPICAL (09:45)
[2023-01-21] MEDS: Baclofen 10 MG Tablet 5 MG PO ×3 (09:46→21:47)
[2023-01-21] MEDS: Polyethylene Glycol 3350 17 GM PACKET PO ×2 (09:48→17:32)
[2023-01-21] MEDS: Finasteride 5 MG Tablet PO (09:53)
[2023-01-21] MEDS: Gabapentin 300 MG Capsule PO ×3 (09:53→21:45)
[2023-01-21] MEDS: Senna/Docusate Sodium 1 Tablet 2 TABLET PO ×2 (09:54→17:33)
[2023-01-21] MEDS: Acetaminophen 500 MG Tablet 1000 MG PO ×3 (09:56→21:47)
[2023-01-21 10:00] VITALS: PULSE 70; RESP 16; O2SAT 96
[2023-01-21] MEDS: Spironolactone 25 MG Tablet PO (10:01)
[2023-01-21] MEDS: Vitamin B Comp W-C Capsule 1 CAP PO (10:02)
[2023-01-21] MEDS: Folic Acid 1 MG Tablet 2 MG PO (10:03)
[2023-01-21] MEDS: Amiodarone 200 MG Tablet PO (10:05)
[2023-01-21] MEDS: Aspirin E.C. 81 MG Tablet PO (10:05)
[2023-01-21] MEDS: Multivitamins,Therapeutic Tablet 1 TABLET PO (10:06)
[2023-01-21] MEDS: Juven (unflavored) Packet 1 PACKET PO ×2 (10:06→17:30)
--- NOTE | 2023-01-21 10:52 | NURSING ---
Patient stated to this nurse when he fell this morning he was having spasms in both legs when the fall occurred. Patient also stated that he also had spasms in PT the other day causing his legs to buckle.
[2023-01-21 10:56] LABS: Anisocytosis 2+; Differential Comment SCANNED; Macrocytosis 1+; Microcytosis 1+
[2023-01-21 16:00] VITALS: BP 96/53; PULSE 63; RESP 18; TEMP 36.8; O2SAT 92
[2023-01-21] MEDS: Rivaroxaban 15 MG Tablet PO (17:31)
[2023-01-21] MEDS: Tamsulosin HCl 0.4 MG Capsule PO (17:32)
[2023-01-21 17:43] VITALS: BP 118/60
[2023-01-21] MEDS: Atorvastatin Calcium 40 MG Tablet PO (21:48)
[2023-01-21] MEDS: Mirtazapine 15 MG Tablet PO (21:49)
[2023-01-21] MEDS: traZODone 100 MG Tablet PO (23:31)
[2023-01-22] MEDS: Gabapentin 300 MG Capsule PO ×3 (05:37→23:27)
[2023-01-22] MEDS: Polyethylene Glycol 3350 17 GM PACKET PO ×2 (05:37→17:40)
[2023-01-22] MEDS: oxyCODONE 5 MG Tablet PO ×2 (05:37→17:47)
[2023-01-22] MEDS: Senna/Docusate Sodium 1 Tablet 2 TABLET PO ×2 (05:37→17:40)
[2023-01-22] MEDS: Finasteride 5 MG Tablet PO (05:38)
[2023-01-22] MEDS: Baclofen 10 MG Tablet 5 MG PO ×3 (05:38→23:22)
[2023-01-22] MEDS: Furosemide 40 MG Tablet PO (05:38)
[2023-01-22] MEDS: Lidocaine 5% Patch 1 PATCH TOPICAL (05:39)
[2023-01-22] MEDS: Iron Polysaccharide Complex 150 MG CAPSULE PO (05:39)
[2023-01-22] MEDS: Acetaminophen 500 MG Tablet 1000 MG PO ×3 (05:40→23:21)
[2023-01-22 06:00] VITALS: PULSE 65; O2SAT 91
[2023-01-22 06:48] VITALS: O2SAT 90
[2023-01-22] MEDS: Juven (unflavored) Packet 1 PACKET PO ×2 (08:49→17:38)
[2023-01-22] MEDS: Spironolactone 25 MG Tablet PO (08:50)
[2023-01-22] MEDS: Aspirin E.C. 81 MG Tablet PO (08:50)
[2023-01-22] MEDS: Vitamin B Comp W-C Capsule 1 CAP PO (08:51)
[2023-01-22] MEDS: Folic Acid 1 MG Tablet 2 MG PO (08:51)
[2023-01-22] MEDS: Amiodarone 200 MG Tablet PO (08:52)
[2023-01-22] MEDS: Multivitamins,Therapeutic Tablet 1 TABLET PO (08:53)
[2023-01-22 11:30] VITALS: PULSE 71; RESP 18; O2SAT 95
[2023-01-22 16:00] VITALS: BP 92/44; PULSE 69; RESP 16; TEMP 36.8; O2SAT 94
[2023-01-22] MEDS: Rivaroxaban 15 MG Tablet PO (17:38)
[2023-01-22] MEDS: Tamsulosin HCl 0.4 MG Capsule PO (17:39)
[2023-01-22] MEDS: traZODone 100 MG Tablet PO (23:22)
[2023-01-22] MEDS: Mirtazapine 15 MG Tablet PO (23:23)
[2023-01-22] MEDS: Atorvastatin Calcium 40 MG Tablet PO (23:24)
[2023-01-22 23:30] VITALS: O2SAT 91
[2023-01-23] MEDS: oxyCODONE 5 MG Tablet PO ×3 (03:10→16:01)
--- NOTE | 2023-01-23 04:16 | NURSING ---
Per dayshift APPAREL PATTERN MAKER, spo2 observed to drop below 90 at times when sleeping on room air. O2 on at 2L via NC. Written communication left for Dr. Lebron requesting overnight pulse ox
[2023-01-23] MEDS: Gabapentin 300 MG Capsule PO ×3 (05:50→20:53)
[2023-01-23] MEDS: Iron Polysaccharide Complex 150 MG CAPSULE PO (05:51)
[2023-01-23] MEDS: Furosemide 40 MG Tablet PO (05:51)
[2023-01-23] MEDS: Lidocaine 5% Patch 1 PATCH TOPICAL (05:51)
[2023-01-23] MEDS: Senna/Docusate Sodium 1 Tablet 2 TABLET PO (05:51)
[2023-01-23] MEDS: Acetaminophen 500 MG Tablet 1000 MG PO ×3 (05:51→20:48)
[2023-01-23] MEDS: Finasteride 5 MG Tablet PO (05:52)
[2023-01-23] MEDS: Baclofen 10 MG Tablet 5 MG PO ×2 (05:52→12:39)
[2023-01-23 07:45] VITALS: O2SAT 92
[2023-01-23] MEDS: Amiodarone 200 MG Tablet PO (08:18)
[2023-01-23] MEDS: Vitamin B Comp W-C Capsule 1 CAP PO (08:18)
[2023-01-23] MEDS: Juven (unflavored) Packet 1 PACKET PO ×2 (08:18→17:29)
[2023-01-23] MEDS: Spironolactone 25 MG Tablet PO (08:18)
[2023-01-23] MEDS: Aspirin E.C. 81 MG Tablet PO (08:18)
[2023-01-23] MEDS: Folic Acid 1 MG Tablet 2 MG PO (08:19)
[2023-01-23] MEDS: Multivitamins,Therapeutic Tablet 1 TABLET PO (09:36)
[2023-01-23 10:00] VITALS: PULSE 70; RESP 17; O2SAT 97
--- NOTE | 2023-01-23 10:13 | NURSING ---
Dressings changed to bilateral upper extremities
[2023-01-23 12:58] VITALS: BP 99/49; PULSE 80; RESP 16; TEMP 37; O2SAT 94
[2023-01-23] MEDS: Rivaroxaban 15 MG Tablet PO (17:28)
[2023-01-23] MEDS: Tamsulosin HCl 0.4 MG Capsule PO (17:28)
--- NOTE | 2023-01-23 20:15 | RAD_ITS ---
INDICATION: cough EXAMINATION/TECHNIQUE: X-RAY - XR Chest 2 Views COMPARISON: 01/04/2023. FINDINGS: LINES/DEVICES: None. LUNGS: The lungs are underexpanded with vascular crowding. There is bilateral basilar atelectasis. MEDIASTINUM AND CARDIOVASCULAR STRUCTURES: Cardiac silhouette not enlarged. Central airways and mediastinal contour are unremarkable. BONES AND SOFT TISSUES: Diffuse osteopenia with degenerative disease of bilateral shoulders and spine. Multilevel vertebroplasty to the thoracolumbar spine. Postoperative changes of the right shoulder. RAD/Chest PA and Lateral IMPRESSION: Bilateral basilar atelectasis, otherwise no acute cardiopulmonary disease. Electronically Signed: Le Sanchez, at 20:35 EDT ,
--- NOTE | 2023-01-23 20:19 | NURSING ---
pt off unit via WC for chest xray
[2023-01-23] MEDS: MethylPREDNISolone DosePak 4 MG BOX PO (20:44)
[2023-01-23] MEDS: Baclofen 10 MG Tablet PO (20:46)
[2023-01-23] MEDS: Atorvastatin Calcium 40 MG Tablet PO (20:47)
[2023-01-23] MEDS: Mirtazapine 15 MG Tablet PO (20:47)
[2023-01-23] MEDS: traZODone 100 MG Tablet PO (20:48)
[2023-01-23] MEDS: diazePAM 5 MG Tablet PO (20:52)
[2023-01-23 21:00] VITALS: BP 104/65; PULSE 92; RESP 20; TEMP 36.7; O2SAT 97
[2023-01-23 21:41] LABS: Absolute Lymphocyte Count 0.89 X10^3/uL (0.83-4.51); Absolute Neutrophil Count 5.6 X10^3/uL (2.0-7.7); Basophil# 0.04 X10^3/uL; Basophil% 0.5 % (0-1); Eosinophils% 3.9 % (0-5); Hematocrit 37.4 % (40-54); Hemoglobin 11.6 g/dL (13.0-16.5); Lymphocyte # 0.89 X10^3/ul (0.83-4.51); Lymphocyte % 11.5 % (19-41); Mean Corpuscular Hgb 31.8 pg (27.0-32.0); Mean Corpuscular Volume 102.5 fL (80-94); Mean Platelet Vol. 9.3 fl (6.2-12.0); Monocyte% 11.6 % (0-10); NRBC Flagged by Analyzer 0 % (0-5); Neutrophil % 72.2 % (47-70); POSITIVE MORPHOLOGY YES; Platelet Count 216 K/mm3 (150-450); Red Blood Count 3.65 M/mm3 (4.6-6.2); White Blood Count 7.8 K/mm3 (4.4-11.0)
[2023-01-23 21:43] LABS: Differential Indicated SCAN CRITERIA MET
[2023-01-23 21:44] VITALS: PULSE 89; O2SAT 93
[2023-01-23 21:56] LABS: Anion Gap 3 (5-15); BUN 33 mg/dL (7-18); BUN/Creat Ratio 42.5 RATIO (10-20); Calcium,Total 8.6 mg/dL (8.5-10.1); Chloride 102 mmol/L (98-107); Creatinine, Serum 0.78 mg/dL (0.70-1.30); EST Glomerular Filtration Rate 102 mL/min (>60); Est Glom Filt Rate - Afr Amer 124 mL/min (>60); Estimated Creatinine Clearance 43.58 ml/min; Glucose 114 mg/dL (74-106); Potassium 4.2 mmol/L (3.5-5.1); Sodium Level 136 mmol/L (136-145)
[2023-01-24] MEDS: oxyCODONE 5 MG Tablet PO ×2 (01:12→17:26)
[2023-01-24] MEDS: Gabapentin 300 MG Capsule PO ×3 (06:39→21:36)
[2023-01-24] MEDS: Acetaminophen 500 MG Tablet 1000 MG PO ×3 (06:40→21:38)
[2023-01-24] MEDS: Baclofen 10 MG Tablet PO ×3 (06:40→21:35)
[2023-01-24] MEDS: levoFLOXacin 750 MG Tablet PO (06:42)
--- NOTE | 2023-01-24 07:45 | NURSING ---
Upon entering room to administer am meds, pt informs this nurse he was starting to walk to the bathroom himself as he did not know where he was. Incontinent of urine. Linens changed d/t lg amount of urinary incontinence. Did not tolerate bed mobility well. Intermittent jerking motions to b/l upper extremities. Resp therapy enters room and removes sensor for nocturnal pulse ox. o2 applied per this nurse at 2 lpm via nc. Call light w/ in reach. Will continue to monitor.
[2023-01-24] MEDS: Lidocaine 5% Patch 1 PATCH TOPICAL (08:57)
[2023-01-24] MEDS: MethylPREDNISolone DosePak 4 MG BOX PO ×4 (08:57→21:36)
[2023-01-24] MEDS: Folic Acid 1 MG Tablet 2 MG PO (08:58)
[2023-01-24] MEDS: Aspirin E.C. 81 MG Tablet PO (08:58)
[2023-01-24] MEDS: Spironolactone 25 MG Tablet PO (08:58)
[2023-01-24] MEDS: Amiodarone 200 MG Tablet PO (08:58)
[2023-01-24] MEDS: Multivitamins,Therapeutic Tablet 1 TABLET PO (08:58)
[2023-01-24] MEDS: Vitamin B Comp W-C Capsule 1 CAP PO (08:58)
[2023-01-24] MEDS: Juven (unflavored) Packet 1 PACKET PO ×2 (08:58→17:19)
[2023-01-24] MEDS: Finasteride 5 MG Tablet PO (08:58)
[2023-01-24] MEDS: Iron Polysaccharide Complex 150 MG CAPSULE PO (08:58)
[2023-01-24] MEDS: Senna/Docusate Sodium 1 Tablet 2 TABLET PO ×2 (08:59→21:39)
[2023-01-24] MEDS: diazePAM 5 MG Tablet PO (09:08)
[2023-01-24 10:23] VITALS: O2SAT 91
[2023-01-24] MEDS: Furosemide 40 MG Tablet PO (10:48)
[2023-01-24 10:53] VITALS: BP 132/57; PULSE 76
--- NOTE | 2023-01-24 11:16 | CASEMGMT ---
Addendum entered by Susan Miller 01/24/23 15:05: SW spoke with pt to discuss DC date. Pt expressed not feeling ready to DC home, stating he has decline recently. Pt noted he was proud of excelling and being adlib, but with set back can no longer be home alone. Pt expresses goals of returning to work, driving and visiting brother again, getting rid of the phlegm and O2. SW educated to appeal rights and pt is electing to appeal. He will speak with dtr and dtr will assist with appeal. Pt expressed understanding that a DC plan will still need in place in case appeal is lost. SW discussed options and answered questions of HHC vs AL vs SNF and the financial liability. Pt shared his finances and is over resources for Medicaid. SW provided supportive listening and validated frustrations with insurance company. Pt explained his dtr works 9-5 daily and has her phone turned off. SW offered to leave a detailed voicemail for dtr and schedule a time prior to or after work hours. Pt appreciative. SW left detailed voicemail with dtr and offered to speak tomorrow morning. Will continue to follow. Plan: DC 01/27, pending appeal. Disposition undetermined at this time. Original Note: [employer] Insurance issued LCD 01/26, DC 01/27. SW left voicemail with dtr requesting return call for DC planning. Susan Miller, S[employer] SHEETER MACHINE OPERATOR
[2023-01-24 12:00] VITALS: BMI 25.4
[2023-01-24 16:00] VITALS: BP 85/51; PULSE 82; RESP 18; TEMP 36.9; O2SAT 95
[2023-01-24 16:57] VITALS: BP 95/52; PULSE 71
[2023-01-24] MEDS: Rivaroxaban 15 MG Tablet PO (17:19)
[2023-01-24] MEDS: Tamsulosin HCl 0.4 MG Capsule PO (17:19)
--- NOTE | 2023-01-24 18:25 | NURSING ---
Pt concerned with increased amount of yellow thick sputum. Dr. Lebron updated N.O. for Sputum culture. Sputum collected and sent to lab waiting mirco results. Encouraged pt to use Incentive Spirometer.
--- NOTE | 2023-01-24 20:43 | PCM.DC.SUM ---
Providers Date of Admission: 01/06/23 Primary Care Physician: Dr. Gloria Hazel MD Reason For Visit: FALL, RHABDOMYOLYSIS, ADULT FTT Diagnosis Discharge Diagnosis (1) Debility: Status: Acute Code(s): R53.81 - Other malaise (2) History of recent fall: Status: Acute Code(s): Z91.81 - History of falling (3) Rib fractures: Status: Acute Code(s): S22.49XA - Multiple fractures of ribs, unspecified side, initial encounter for closed fracture (4) Compression fracture of L1 vertebra: Status: Acute Code(s): S32.010A - Wedge compression fracture of first lumbar vertebra, initial encounter for closed fracture (5) Compression fracture of L5 vertebra: Status: Acute Code(s): S32.050A - Wedge compression fracture of fifth lumbar vertebra, initial encounter for closed fracture (6) Rhabdomyolysis: Status: Resolved Code(s): M62.82 - Rhabdomyolysis (7) Atrial fibrillation: Status: Chronic Code(s): I48.91 - Unspecified atrial fibrillation Qualifiers: Atrial fibrillation type: paroxysmal Qualified Code(s): I48.0 - Paroxysmal atrial fibrillation (8) Hypoxia: Status: Acute Code(s): R09.02 - Hypoxemia (9) Depression: Status: Acute Code(s): F32.A - Depression, unspecified (10) Chronic pain: Status: Chronic Code(s): G89.29 - Other chronic pain (11) Hyperlipidemia: Status: Acute Code(s): E78.5 - Hyperlipidemia, unspecified (12) Neuropathic pain: Status: Acute Code(s): M79.2 - Neuralgia and neuritis, unspecified (13) Insomnia: Status: Inactive Code(s): G47.00 - Insomnia, unspecified (14) Iron deficiency anemia: Status: Acute Code(s): D50.9 - Iron deficiency anemia, unspecified (15) Acute on chronic heart failure with preserved ejection fraction: Status: Acute Code(s): I50.33 - Acute on chronic diastolic (congestive) heart failure Plan 82 year old male with below past medical history hospitalized for weakness, rhabdomyolysis, rib fractures, lumbar compression fractures, complicated by acute on chronic heart failure with preserved ejection fraction, admitted to TCU with debility, here for rehabilitation, strengthening, prior to discharge home alone. Debility - PT/OT. Pain - Tylenol 1000mg q8, Oxycodone 5mg q4h prn pain (6-10), Lidoderm topical daily. Bowel - Miralax 17gm bid, senna/colace 2 tablets bid, Magnesium citrate 300ml po daily prn. Adult immunization - Administer pneumonia vaccine, covid19 vaccine, flu vaccine as appropriate. DVT prophylaxis - on Xarelto. Atrial fibrillation - Amiodarone 200mg daily, Xarelto 20mg daily. Hyperlipidemia - Atorvastatin 40mg qhs. s/p kyphoplasty - Keflex 500mg q6h thru 01/12/2023. Vitamin D deficiency - D 1.25mg per week. BPH - Finasteride 5mg daily, Tamsulosin 0.4mg daily. Rheumatoid Arthritis - Hold Simponi Aria, on Folic acid 2mg daily, prednisone 10mg daily prn. Chronic heart failure with preserved ejection fraction - Aldactone 25mg daily, Furosemide 80mg daily. Neuropathic pain - Gabapentin 300mg tid prn. Iron deficiency anemia - Ferrex 150mg daily. Nutrition - MVI daily, Tian 1 packet bid. Depression/appetite loss - Mirtazapine 15mg qhs, stable chronic penitentiary use, GDR not recommended. Insomnia - Trazodone 100mg qhs, stable chronic intermediate frame tender use, GDR not recommended. Leg cramps - Vitamin B complex 1 capsule daily. Medications at Discharge Home Medications tamsulosin 0.4 mg capsule 0.4 mg PO DAILY@1800 Retention 07/18/20 folic acid 1 mg tablet 2 mg PO DAILY supplement 09/28/20 finasteride 1 mg tablet 5 mg PO DAILY prostate 12/30/20 multivitamin (Daily Multi-Vitamin tablet) 1 tab PO DAILY Check with primary doctor 01/01/21 mirtazapine 15 mg tablet 15 mg PO QHS sleep 01/10/22 vitamin B12 2,500 mcg-folic acid 400 mcg disintegrating tablet 1 tab PO DAILY Check with primary doctor 01/10/22 golimumab 12.5 mg/mL intravenous solution (Simponi ARIA) 12.5 mg IV .[id number] injection 05/31/22 atorvastatin 40 mg tablet (Lipitor) 40 mg PO QHS Cholesterol #90 tabs 10/07/22 gabapentin 300 mg capsule 300 mg PO TID PRN PRN NERVE PAIN 05/25/23 amiodarone 200 mg tablet 200 mg PO DAILY heart rate #90 tabs 10/28/22 spironolactone 25 mg tablet 25 mg PO DAILY water pill #30 tabs 11/14/22 trazodone 100 mg tablet 100 mg PO QHS Check with primary doctor 11/14/22 prednisone 10 mg tablet 10 mg PO DAILY PRN RA FLARE UP 01/04/23 ergocalciferol (vitamin D2) 1,250 mcg (50,000 unit) capsule (Vitamin D2) 1,250 mcg PO Q7D supplememt #0 caps 01/06/23 acetaminophen 500 mg tablet 1,000 mg (2 x 500 mg) PO Q8 #0 tabs 01/24/23 arginine 7 gram-glutam 7 gram-CaHMB 1.5 [id number]-[id number]-min oral pwd pkt (Tian (with collagen)) 1 packet PO BIDCM 30 days #60 ea 01/24/23 baclofen 10 mg tablet 10 mg PO TID 30 days #90 tabs 01/24/23 furosemide 40 mg tablet 40 mg PO DAILY 30 days #30 tabs 01/24/23 levofloxacin 750 mg tablet 750 mg PO DAILY@0600 4 days #4 tabs 01/24/23 lidocaine 5 % topical patch 1 patch topical DAILY 30 days #30 ea 01/24/23 oxycodone 5 mg tablet 5 mg PO Q4H PRN PRN Pain Score 6-10 7 days #42 tabs 01/24/23 polysaccharide iron complex 150 mg iron capsule (Ferrex) 150 mg PO DAILY 30 days #30 caps 01/24/23 rivaroxaban 15 mg tablet (Xarelto) 15 mg PO DINNER 30 days #30 tabs 01/24/23 sennosides 8.6 mg-docusate sodium 50 mg tablet (Stool Softener-Stimulant Laxative) 2 tab PO BID 30 days #120 tabs 01/24/23 Hospital Course Operations None Procedures None Summary of Care Provided Minutes Spent on Discharge: 35 Hospital Course: 82 year old male with below past medical history hospitalized for weakness, rhabdomyolysis, rib fractures, lumbar compression fractures, complicated by acute on chronic heart failure with preserved ejection fraction, admitted to TCU with debility, here for rehabilitation, strengthening, prior to discharge home alone. 01/21/2023 Fall, head injury, CT head negative. 01/23/2023 Resident treated for bronchitis with Levaquin, Medrol dosepack. Discharge home alone 01/27/2023, pending appeal, [facility] PT/OT/[place]. Physical Exam Const alert General Appearance: cooperative HEENT normocephalic Eyes PERRL and EOMs intact bilaterally Neck supple, no JVD and no carotid bruits Resp normal respiratory effort, normal air movement and clear to auscultation bilaterally Cardio regular rate and regular rhythm GI normal to inspection, nondistended, normoactive bowel sounds, non-tender and non-distended Extremity normal capillary refill General Extremity: Negative for edema Skin no rashes or lesions noted General Skin Exam: no breakdown Psych affect normal Appearance: appropriate Weight / BMI Weight Weight: 61.054 kg Body Mass Index (BMI) 25.4 ABG / Lab / Microbiology Data 01/23/23 21:29 01/23/23 21:29 Laboratory: Laboratory Results - last 24 hr 01/23/23 21:29: WBC 7.8, RBC 3.65 L, Hgb 11.6 L, Hct 37.4 L, MCV 102.5 H, MCH 31.8, MCHC 31.0 L, RDW Std Deviation 78.0 H, RDW Coeff of Jaciel 20.0 H, Plt Count 216, MPV 9.3, Immature Gran % (Auto) 0.300, Neut % (Auto) 72.2 H, Lymph % (Auto) 11.5 L, Yancey % (Auto) 11.6 H, Eos % (Auto) 3.9, Baso % (Auto) 0.5, Absolute Neuts (auto) 5.6, Absolute Lymphs (auto) 0.89, Nucleated RBC % 0, Differential Comment , Sodium 136, Potassium 4.2, Chloride 102, Carbon Dioxide 31.0, Anion Gap 3 L, BUN 33 H, Creatinine 0.78, Estim Creat Clear Calc 43.58, Est GFR (MDRD) Af Amer 124, Est GFR (MDRD) Non-Af 102, BUN/Creatinine Ratio 42.5 H, Glucose 114 H, Calcium 8.6 D/C Instructions Discharge Diet: No restrictions Discharge Activity: Return to Normal Activity, May Shower and Use Walker Weight Bearing Status: Weight bearing as tolerated Call your doctor if you observe: Fever of 101 or Higher, Inability to urinate, Inability to have a bowel movement, Shortness of breath, Dizziness, Fainting spells, Swelling in the ankles, Chest pain and Uncontrolled pain Additional Instructions: Discharge home alone 01/27/2023, pending appeal, [facility] PT/OT/[place]. Meaningful Use Info Meaningful Use Diagnoses (Choose all that apply): None applicable Discharge Plan Admission Admit Date/Time: 01/06/23 17:52 Primary Reason for Your Visit: Debility. Attending Provider: Yogesh Lebron Chi Primary Care Provider: Gloria Hazel Instructions Additional Instructions / Restrictions: Discharge home alone 01/27/2023, pending appeal, [facility] PT/OT/[place]. Discharge Orders/Prescriptions Prescriptions: New furosemide 40 mg Tablet 40 mg PO DAILY 30 Days Qty: 30 0RF polysaccharide iron complex [Ferrex 150] 150 mg iron Capsule 150 mg PO DAILY 30 Days Qty: 30 0RF sennosides-docusate sodium [Stool Softener-Stimulant Laxat] 8.6-50 mg Tablet 2 tab PO BID 30 Days Qty: 120 0RF acetaminophen 500 mg Tablet 1,000 mg PO Q8 Qty: 0 0RF baclofen 10 mg Tablet 10 mg PO TID 30 Days Qty: 90 0RF lidocaine 5 % Adhesive Patch,Medicated 1 patch topical DAILY 30 Days Qty: 30 0RF Protocol: *Topical Application Instructions APPLICATION INSTRUCTIONS: lumbar spine in painful region levofloxacin 750 mg Tablet 750 mg PO DAILY@0600 4 Days Qty: 4 0RF oxycodone 5 mg Tablet 5 mg PO Q4H PRN PRN (Reason: Pain Score 6-10) 7 Days Qty: 42 0RF Xarelto 15 mg Tablet 15 mg PO DINNER 30 Days Qty: 30 0RF Tian (with collagen) 7-7-1.5 gram Powder In Packet 1 packet PO BIDCM 30 Days Qty: 60 0RF Continued folic acid 1 mg tablet 2 mg PO DAILY mirtazapine 15 mg tablet 15 mg PO QHS multivitamin [Daily Multi-Vitamin] Tablet 1 tab PO DAILY finasteride 1 mg tablet 5 mg PO DAILY spironolactone 25 mg tablet 25 mg PO DAILY Qty: 30 12RF tamsulosin 0.4 MG capsule 0.4 mg PO DAILY@1800 trazodone 100 mg tablet 100 mg PO QHS vitamin [id number] acid 2,500-400 mcg tablet,disintegrating 1 tab PO DAILY Simponi ARIA 12.5 mg/mL Solution 12.5 mg IV .[id number] Patient Comments: PT GOES TO GET INJECTION EVERY 8 WEEKS CAN NOT REMEMBER LAST SHOT NEXT DUE IS IN OCTOBER gabapentin 300 mg capsule 300 mg PO TID PRN PRN (Reason: NERVE PAIN) Patient Comments: Take 1 (one) Capsule by mouth three times daily, as needed prednisone 10 mg tablet 10 mg PO DAILY PRN (Reason: RA FLARE UP) Rx Instructions: As instructed ergocalciferol (vitamin D2) [Vitamin D2] 1,250 mcg (50,000 unit) Capsule 1,250 mcg PO Q7D Qty: 0 0RF atorvastatin [Lipitor] 40 mg tablet 40 mg PO QHS Qty: 90 3RF amiodarone 200 mg tablet 200 mg PO DAILY Qty: 90 3RF Discontinued aspirin 81 mg tablet,delayed release (DR/EC) 81 mg PO DAILY Qty: 1 0RF furosemide [Lasix] 40 mg tablet 80 mg PO DAILY 90 Days Qty: 180 3RF polysaccharide iron complex [Ferrex 150] 150 mg iron capsule 150 mg PO DAILY 90 Days Qty: 90 3RF Xarelto 20 mg tablet 20 mg PO DAILY Qty: 1 0RF Rx Instructions: must administer with evening meal, start on 10/22/2022 cephalexin 500 mg capsule 500 mg PO Q6H Patient Comments: takes 1 capsule four times daily. Pt hasnt started meds yet polyethylene glycol 3350 17 gram Powder In Packet 17 g PO BID Qty: 0 0RF acetaminophen 500 mg Tablet 1,000 mg PO Q8 Qty: 0 0RF lidocaine 5 % Adhesive Patch,Medicated 1 patch topical DAILY Qty: 0 0RF Protocol: *Topical Application Instructions APPLICATION INSTRUCTIONS: lumbar spine in painful region oxycodone 5 mg Tablet 5 mg PO Q4H PRN PRN (Reason: Pain Score 6-10) 1 Days Qty: 6 0RF Tian (with collagen) 7-7-1.5 gram Powder In Packet 1 packet PO BIDCM Qty: 0 0RF sennosides-docusate sodium [Stool Softener-Stimulant Laxat] 8.6-50 mg Tablet 2 tab PO BID PRN PRN (Reason: Constipation) Qty: 0 0RF Referrals / Follow Up: Gloria Hazel MD [Primary Care Provider] - Disposition Disposition (needs filled in before D/C Order can be placed): Home Health Service
[2023-01-24] MEDS: Atorvastatin Calcium 40 MG Tablet PO (21:38)
[2023-01-24] MEDS: Mirtazapine 15 MG Tablet PO (23:35)
[2023-01-24] MEDS: traZODone 100 MG Tablet PO (23:35)
[2023-01-25] MEDS: levoFLOXacin 750 MG Tablet PO (05:15)
[2023-01-25] MEDS: Acetaminophen 500 MG Tablet 1000 MG PO ×3 (05:15→20:47)
[2023-01-25] MEDS: Gabapentin 300 MG Capsule PO ×3 (05:16→20:48)
[2023-01-25] MEDS: Baclofen 10 MG Tablet PO ×3 (05:16→20:48)
--- NOTE | 2023-01-25 09:11 | CASEMGMT ---
Addendum entered by Susan Miller 01/25/23 16:09: SW sent referral to [facility] for O2 and FWW. Liaison provided DME to this worker to distribute once approved for DC. Addendum entered by Susan Miller 01/25/23 10:55: Dtr filed appeal. Original Note: Social Work Received call from dtr. Dtr stated her phone is broken and did not receive this worker's voicemails. SW updated dtr with all pertinent information. Dtr is going to appeal but has not been able to reach a live person yet. Dtr is interested in AL options. Dtr provided email and SW sent list to dtr. Dtr appreciative of assistance. SW will continue to follow. Susan Miller CLASSER INTENSIVE CARE MEDICINE SPECIALIST
[2023-01-25] MEDS: MethylPREDNISolone DosePak 4 MG BOX PO ×4 (09:59→20:49)
[2023-01-25] MEDS: Juven (unflavored) Packet 1 PACKET PO ×2 (09:59→17:25)
[2023-01-25] MEDS: Multivitamins,Therapeutic Tablet 1 TABLET PO (10:01)
[2023-01-25] MEDS: Amiodarone 200 MG Tablet PO (10:02)
[2023-01-25] MEDS: Folic Acid 1 MG Tablet 2 MG PO (10:02)
[2023-01-25] MEDS: Vitamin B Comp W-C Capsule 1 CAP PO (10:02)
[2023-01-25] MEDS: Aspirin E.C. 81 MG Tablet PO (10:02)
[2023-01-25] MEDS: Senna/Docusate Sodium 1 Tablet 2 TABLET PO ×2 (10:03→20:47)
[2023-01-25] MEDS: Spironolactone 25 MG Tablet PO (10:03)
[2023-01-25] MEDS: Iron Polysaccharide Complex 150 MG CAPSULE PO (10:04)
[2023-01-25] MEDS: Finasteride 5 MG Tablet PO (10:04)
[2023-01-25] MEDS: Furosemide 40 MG Tablet PO (10:04)
[2023-01-25] MEDS: Lidocaine 5% Patch 1 PATCH TOPICAL (10:05)
[2023-01-25 10:12] VITALS: BP 110/58; PULSE 68
[2023-01-25] MEDS: oxyCODONE 5 MG Tablet PO ×2 (12:59→20:48)
[2023-01-25 13:52] VITALS: BP 103/55; PULSE 82; RESP 18; TEMP 36.9; O2SAT 92
[2023-01-25] MEDS: Tamsulosin HCl 0.4 MG Capsule PO (17:26)
[2023-01-25] MEDS: Rivaroxaban 15 MG Tablet PO (17:26)
[2023-01-25] MEDS: Mirtazapine 15 MG Tablet PO (20:47)
[2023-01-25] MEDS: Atorvastatin Calcium 40 MG Tablet PO (20:47)
[2023-01-25] MEDS: traZODone 100 MG Tablet PO (23:21)
[2023-01-26] MEDS: levoFLOXacin 750 MG Tablet PO (04:56)
[2023-01-26] MEDS: Baclofen 10 MG Tablet PO ×3 (04:56→21:46)
[2023-01-26] MEDS: Acetaminophen 500 MG Tablet 1000 MG PO ×3 (04:56→21:46)
[2023-01-26] MEDS: Gabapentin 300 MG Capsule PO ×3 (04:57→21:45)
[2023-01-26] MEDS: oxyCODONE 5 MG Tablet PO ×3 (05:00→21:45)
[2023-01-26 09:00] VITALS: O2SAT 89; O2SAT 93
[2023-01-26] MEDS: MethylPREDNISolone DosePak 4 MG BOX PO ×3 (09:20→21:47)
[2023-01-26] MEDS: Lidocaine 5% Patch 1 PATCH TOPICAL (09:21)
[2023-01-26] MEDS: Juven (unflavored) Packet 1 PACKET PO ×2 (09:21→18:22)
[2023-01-26] MEDS: Senna/Docusate Sodium 1 Tablet 2 TABLET PO ×2 (09:22→21:48)
[2023-01-26] MEDS: Folic Acid 1 MG Tablet 2 MG PO (09:22)
[2023-01-26] MEDS: Furosemide 40 MG Tablet PO (09:22)
[2023-01-26] MEDS: Multivitamins,Therapeutic Tablet 1 TABLET PO (09:22)
[2023-01-26] MEDS: Ergocalciferol 1.25 MG (50, 000 UNIT) Capsule PO (09:22)
[2023-01-26] MEDS: Vitamin B Comp W-C Capsule 1 CAP PO (09:22)
[2023-01-26] MEDS: Aspirin E.C. 81 MG Tablet PO (09:23)
[2023-01-26] MEDS: Finasteride 5 MG Tablet PO (09:23)
[2023-01-26] MEDS: Spironolactone 25 MG Tablet PO (09:23)
[2023-01-26] MEDS: Amiodarone 200 MG Tablet PO (09:23)
[2023-01-26] MEDS: Iron Polysaccharide Complex 150 MG CAPSULE PO (09:23)
[2023-01-26 09:30] VITALS: PULSE 84; RESP 18; O2SAT 90
[2023-01-26 09:38] VITALS: BP 122/64; PULSE 84
--- NOTE | 2023-01-26 14:54 | CASEMGMT ---
Social Work Followed up with pt on DC plans if pt loses appeal. SW has not received return correspondence from dtr on AL list. Pt phoned dtr for all parties to converse. Pt and dtr spoke back and forth about home vs AL. SW answered questions. After much discussion, pt and dtr both agreed for pt to DC home and if unsuccessful, can admit to AL. Both requesting lifealert resources. SW offered to email to dtr. Dtr agreed. Pt agreeable to [facility] and would like to use [facility], whom he used prior. [employer] to deliver O2 and FWW to room once DC date is known. Dtr and pt appreciative of assistance. -- Received fax from [employer] stating pt lost his appeal. KAITY spoke with pt at bedside. Pt upset and inquired about second appeal. SW educated to reconsideration. Pt denied. Pt to notify dtr and dtr will transport home. KAITY phoned referral to [facility] PT/OT/SN/SW. Updated [employer]. DME to be delivered to pt's room. Plan: DC home alone 01/27, [facility] PT/OT/SN/SW, O2, FWW Susan Miller, SPORTS MEDICINE MASSEUR CLOTHING PATTERNMAKER
[2023-01-26 16:00] VITALS: BP 107/61; PULSE 88; RESP 16; TEMP 36.8; O2SAT 92
[2023-01-26] MEDS: Tamsulosin HCl 0.4 MG Capsule PO (18:23)
[2023-01-26] MEDS: Rivaroxaban 15 MG Tablet PO (18:25)
--- NOTE | 2023-01-26 18:44 | NURSING ---
WHILE GIVING PT MEDS PT STARTED COUGHING AFTER TAKING A FLOMAX. PT BROUGHT UP PILL AND CLEAR SPUTUM. PT CONTINUED FOR A FEW MINS COUGHING. PT STATED HE WAS FINE. LUNGS CLEAR BUT DIMINISHED. RN AWARE
[2023-01-26] MEDS: Atorvastatin Calcium 40 MG Tablet PO (21:47)
[2023-01-26] MEDS: Mirtazapine 15 MG Tablet PO (23:40)
[2023-01-26] MEDS: traZODone 100 MG Tablet PO (23:41)
[2023-01-27] MEDS: Baclofen 10 MG Tablet PO ×2 (05:59→14:07)
[2023-01-27] MEDS: levoFLOXacin 750 MG Tablet PO (05:59)
[2023-01-27] MEDS: Acetaminophen 500 MG Tablet 1000 MG PO ×2 (05:59→14:06)
[2023-01-27] MEDS: Gabapentin 300 MG Capsule PO ×2 (06:03→14:06)
[2023-01-27] MEDS: oxyCODONE 5 MG Tablet PO ×2 (06:03→12:21)
[2023-01-27 06:34] VITALS: O2SAT 91
[2023-01-27 07:52] VITALS: O2SAT 82
--- NOTE | 2023-01-27 07:53 | CPS ---
When RT walked into room, pt was on RA and sats were 82%> RT placed pt on 1.5L NC and RN was told.
--- NOTE | 2023-01-27 11:53 | CASEMGMT ---
Addendum entered by Rubina Pedraza 01/27/23 12:11: SW met with pt and updated on discharge plan to [facility] and someone would be here to assess him shortly. Clinicals faxed to [facility]. SW spoke with Darlene at [facility] and they are able to provide therapy there as pt will benefit from continued therapy. Marita at [facility] notified to cancel referral. Walker delivered to pt room from [facility]. Oxygen needs pending walking test. Nursing aware. [facility]AN [employer] Original Note: Social Work SW met with pt this am to confirm dc home today. Pt informs SW that he does not know what the discharge plan is. Phone call to pt dgt Melanie to clarify dc plan that was set yesterday. Melanie states that things have changed overnight and pt now wishes to discharge to an assisted living and preference is the [facility]. Phone call to Darlene at [facility]. They do have a bed available and someone will come over to assess pt. Nursing updated. Darlene aware that dc will be today. Phone call to Melanie to confirm that [facility] does have a bed and pt will be assessed shortly. [facility] [employer]
[2023-01-27 12:00] VITALS: O2SAT 91; O2SAT 94
[2023-01-27] MEDS: Multivitamins,Therapeutic Tablet 1 TABLET PO (12:10)
[2023-01-27] MEDS: Vitamin B Comp W-C Capsule 1 CAP PO (12:10)
[2023-01-27] MEDS: Iron Polysaccharide Complex 150 MG CAPSULE PO (12:10)
[2023-01-27] MEDS: Aspirin E.C. 81 MG Tablet PO (12:11)
[2023-01-27] MEDS: MethylPREDNISolone DosePak 4 MG BOX PO (12:11)
[2023-01-27] MEDS: Amiodarone 200 MG Tablet PO (12:12)
[2023-01-27] MEDS: Senna/Docusate Sodium 1 Tablet 2 TABLET PO (12:12)
[2023-01-27] MEDS: Folic Acid 1 MG Tablet 2 MG PO (12:12)
[2023-01-27] MEDS: Spironolactone 25 MG Tablet PO (12:13)
[2023-01-27] MEDS: Furosemide 40 MG Tablet PO (12:13)
[2023-01-27] MEDS: Finasteride 5 MG Tablet PO (12:14)
[2023-01-27] MEDS: Lidocaine 5% Patch 1 PATCH TOPICAL (12:14)
[2023-01-27] MEDS: Juven (unflavored) Packet 1 PACKET PO (12:46)
[2023-01-27] MEDS: Menthol/Lanolin/Calamine/Znox 113 GM Tube 1 APPLIC TOPICAL (14:05)
--- NOTE | 2023-01-27 14:15 | CASEMGMT ---
Social Work SW spoke with Darlene at the [facility]. Pt has been accepted and can come today. Orders completed by physician and faxed back to AL. Phone call to pt dgt and updated. Dgt will pick pt up and transport to facility. Pt does not meet qualifications for home O2. [employer] notified. Home health PT/OT will be provided by [facility] which is at the AL. Orders faxed. Pt and nursing updated on discharge plan and agreeable. No further SW needs. Discharge Date: 01/27 Discharge Disposition: [facility], Assisted Living. Sanju from [facility], Home Health PT/OT from [facility] [employer]
--- NOTE | 2023-01-27 14:31 | TREXTCAR_ITS ---
Diet Diet Order/Speech Therapy: 01/25/23 12:18 Diet: Regular - General Type of Dietary Supplement:: Ensure Plus High Protein Is pt able to select menu?: Yes Diet Comments: 120 EPHP - vanilla or strawberry tid w/ meals Routine Orders/Code Status Code Status: DNRCC-A (With Intubation.) Wound(s) Scabbed area on right chest: Wound Type: Abrasion RT INNER BUTT CHEEK: Wound Type: OPEN BLISTER Left elblow: Wound Type: Skin Tear Dressing Change: Wet to Dry Dressing Right hand: Wound Type: Skin Tear Dressing Change: Dry Sterile Dressing Therapies Weight Bearing: Weight bearing as tolerated Extremity Affected:: Bilateral Lower Physical Therapy: Eval and Treat Occupational Therapy: Eval and Treat Problem/Diagnosis (1) Debility: Status: Acute Code(s): R53.81 - Other malaise (2) History of recent fall: Status: Acute Code(s): Z91.81 - History of falling (3) Rib fractures: Status: Acute Code(s): S22.49XA - Multiple fractures of ribs, unspecified side, initial encounter for closed fracture (4) Compression fracture of L1 vertebra: Status: Acute Code(s): S32.010A - Wedge compression fracture of first lumbar vertebra, initial encounter for closed fracture (5) Compression fracture of L5 vertebra: Status: Acute Code(s): S32.050A - Wedge compression fracture of fifth lumbar vertebra, initial encounter for closed fracture (6) Rhabdomyolysis: Status: Resolved Code(s): M62.82 - Rhabdomyolysis (7) Atrial fibrillation: Status: Chronic Code(s): I48.91 - Unspecified atrial fibrillation (8) Hypoxia: Status: Acute Code(s): R09.02 - Hypoxemia (9) Depression: Status: Acute Code(s): F32.A - Depression, unspecified (10) Chronic pain: Status: Chronic Code(s): G89.29 - Other chronic pain (11) Hyperlipidemia: Status: Acute Code(s): E78.5 - Hyperlipidemia, unspecified (12) Neuropathic pain: Status: Acute Code(s): M79.2 - Neuralgia and neuritis, unspecified (13) Insomnia: Status: Inactive Code(s): G47.00 - Insomnia, unspecified (14) Iron deficiency anemia: Status: Acute Code(s): D50.9 - Iron deficiency anemia, unspecified (15) Acute on chronic heart failure with preserved ejection fraction: Status: Acute Code(s): I50.33 - Acute on chronic diastolic (congestive) heart failure Plan 82 year old male with below past medical history hospitalized for weakness, rhabdomyolysis, rib fractures, lumbar compression fractures, complicated by acute on chronic heart failure with preserved ejection fraction, admitted to TCU with debility, here for rehabilitation, strengthening, prior to discharge home alone. * Debility - PT/OT. * Pain - Tylenol 1000mg q8, Oxycodone 5mg q4h prn pain (6-10), Lidoderm topical daily. * Bowel - Miralax 17gm bid, senna/colace 2 tablets bid, Magnesium citrate 300ml po daily prn. * Adult immunization - Administer pneumonia vaccine, covid19 vaccine, flu vaccine as appropriate. * DVT prophylaxis - on Xarelto. * Atrial fibrillation - Amiodarone 200mg daily, Xarelto 20mg daily. * Hyperlipidemia - Atorvastatin 40mg qhs. * s/p kyphoplasty - Keflex 500mg q6h thru 01/12/2023. * Vitamin D deficiency - D 1.25mg per week. * BPH - Finasteride 5mg daily, Tamsulosin 0.4mg daily. * Rheumatoid Arthritis - Hold Simponi Aria, on Folic acid 2mg daily, prednisone 10mg daily prn. * Chronic heart failure with preserved ejection fraction - Aldactone 25mg daily, Furosemide 80mg daily. * Neuropathic pain - Gabapentin 300mg tid prn. * Iron deficiency anemia - Ferrex 150mg daily. * Nutrition - MVI daily, Tian 1 packet bid. * Depression/appetite loss - Mirtazapine 15mg qhs, stable chronic terminal superintendent use, GDR not recommended. * Insomnia - Trazodone 100mg qhs, stable chronic terminal superintendent use, GDR not recommended. * Leg cramps - Vitamin B complex 1 capsule daily. Allergies/Procedures Done in Hospital Allergies No Known Allergies Allergy (Verified 01/21/23 07:25) Procedures: None Type of Care/Length of Stay Estimated LOS: Convalescent Care Less Than 30 days Type of Care Needed: Skilled Nursing/Assisted Living Rehab Potential: Good Prognosis: Fair Additional Orders/Day of Discharge Day of Discharge: 01/27/23 Dietary and Speech Recommendations Dietitian Recommendations/Changes: Will liberalize diet to Regular d/t variable po intake at meals. Will continue EPHP w/ meals tid for increased nutrition if consumed. Continue Tian BID to promote wound healing of buttock - discontinue once area healed Discharge Plan Admission Admit Date/Time: 01/06/23 17:52 Primary Reason for Your Visit: Debility. Attending Provider: Yogesh Lebron Chi Primary Care Provider: Gloria Hazel Instructions Additional Instructions / Restrictions: Discharge the [facility] 01/27/2023, Home Health Care PT/OT/[place]. Discharge Orders/Prescriptions Prescriptions: New furosemide 40 mg Tablet 40 mg PO DAILY 30 Days Qty: 30 0RF polysaccharide iron complex [Ferrex 150] 150 mg iron Capsule 150 mg PO DAILY 30 Days Qty: 30 0RF sennosides-docusate sodium [Stool Softener-Stimulant Laxat] 8.6-50 mg Tablet 2 tab PO BID 30 Days Qty: 120 0RF acetaminophen 500 mg Tablet 1,000 mg PO Q8 Qty: 0 0RF baclofen 10 mg Tablet 10 mg PO TID 30 Days Qty: 90 0RF lidocaine 5 % Adhesive Patch,Medicated 1 patch topical DAILY 30 Days Qty: 30 0RF Protocol: *Topical Application Instructions APPLICATION INSTRUCTIONS: lumbar spine in painful region levofloxacin 750 mg Tablet 750 mg PO DAILY@0600 4 Days Qty: 4 0RF oxycodone 5 mg Tablet 5 mg PO Q4H PRN PRN (Reason: Pain Score 6-10) 7 Days Qty: 42 0RF Xarelto 15 mg Tablet 15 mg PO DINNER 30 Days Qty: 30 0RF Tian (with collagen) 7-7-1.5 gram Powder In Packet 1 packet PO BIDCM 30 Days Qty: 60 0RF oxycodone 5 mg tablet 5 mg PO Q4H PRN (Reason: pain) 3 Days Qty: 18 0RF Continued folic acid 1 mg tablet 2 mg PO DAILY mirtazapine 15 mg tablet 15 mg PO QHS multivitamin [Daily Multi-Vitamin] Tablet 1 tab PO DAILY finasteride 1 mg tablet 5 mg PO DAILY spironolactone 25 mg tablet 25 mg PO DAILY Qty: 30 12RF tamsulosin 0.4 MG capsule 0.4 mg PO DAILY@1800 trazodone 100 mg tablet 100 mg PO QHS vitamin [id number] acid 2,500-400 mcg tablet,disintegrating 1 tab PO DAILY Simponi ARIA 12.5 mg/mL Solution 12.5 mg IV .[id number] Patient Comments: PT GOES TO GET INJECTION EVERY 8 WEEKS CAN NOT REMEMBER LAST SHOT NEXT DUE IS IN OCTOBER gabapentin 300 mg capsule 300 mg PO TID PRN PRN (Reason: NERVE PAIN) Patient Comments: Take 1 (one) Capsule by mouth three times daily, as needed prednisone 10 mg tablet 10 mg PO DAILY PRN (Reason: RA FLARE UP) Rx Instructions: As instructed ergocalciferol (vitamin D2) [Vitamin D2] 1,250 mcg (50,000 unit) Capsule 1,250 mcg PO Q7D Qty: 0 0RF atorvastatin [Lipitor] 40 mg tablet 40 mg PO QHS Qty: 90 3RF amiodarone 200 mg tablet 200 mg PO DAILY Qty: 90 3RF Discontinued aspirin 81 mg tablet,delayed release (DR/EC) 81 mg PO DAILY Qty: 1 0RF furosemide [Lasix] 40 mg tablet 80 mg PO DAILY 90 Days Qty: 180 3RF polysaccharide iron complex [Ferrex 150] 150 mg iron capsule 150 mg PO DAILY 90 Days Qty: 90 3RF Xarelto 20 mg tablet 20 mg PO DAILY Qty: 1 0RF Rx Instructions: must administer with evening meal, start on 10/22/2022 cephalexin 500 mg capsule 500 mg PO Q6H Patient Comments: takes 1 capsule four times daily. Pt hasnt started meds yet polyethylene glycol 3350 17 gram Powder In Packet 17 g PO BID Qty: 0 0RF acetaminophen 500 mg Tablet 1,000 mg PO Q8 Qty: 0 0RF lidocaine 5 % Adhesive Patch,Medicated 1 patch topical DAILY Qty: 0 0RF Protocol: *Topical Application Instructions APPLICATION INSTRUCTIONS: lumbar spine in painful region oxycodone 5 mg Tablet 5 mg PO Q4H PRN PRN (Reason: Pain Score 6-10) 1 Days Qty: 6 0RF Tian (with collagen) 7-7-1.5 gram Powder In Packet 1 packet PO BIDCM Qty: 0 0RF sennosides-docusate sodium [Stool Softener-Stimulant Laxat] 8.6-50 mg Tablet 2 tab PO BID PRN PRN (Reason: Constipation) Qty: 0 0RF Referrals / Follow Up: Gloria Hazel MD [Primary Care Provider] - 02/03/23 1:40 pm Disposition Disposition (needs filled in before D/C Order can be placed): Home Health Service (7) Atrial fibrillation Qualifiers: Atrial fibrillation type: paroxysmal Qualified Code(s): I48.0 - Paroxysmal atrial fibrillation
[2023-01-27 14:48] VITALS: BP 108/60; PULSE 84; RESP 19; TEMP 36.6; O2SAT 90
[2023-01-27 15:30] VITALS: BP 112/64; PULSE 86; RESP 18; TEMP 36.7; O2SAT 92
--- NOTE | 2023-01-27 15:55 | CASEMGMT ---
Social Work Alex from [facility] here to assess pt for placement. After assessment KAITY spoke with pt's brother's Mark and Mango who report pt will not speak to them and did not speak to Alex. SW and brothers entered pt room. Pt laying in bed breathing deeply, eyes are closed. Pt does not respond to brothers or the SW when asked to speak. Pt does not open eyes, does not verbalize even when spoken loudly to or arm patted. SW and brothers attempted multiple times. Nursing is aware. Nursing and brothers feel pt choosing not to interact with staff at this time. Insurance issued a NOMNC with last covered day 01/29 and discharge on 01/30. KAITY updated brothers Mark and Jose Cruz and appeal placed with Lauren CASE # [id number]. Brothers state they have not been able to secure 24 hour care. They have found 4 hours of caregivers a day. Brothers would like placement at [facility]. Phone call placed to [facility] and spoke with Joslyn. Joslyn states that pt will need to go to the memory care unit and that Mark does not want this. KAITY spoke with Mark who confirms he will not send pt to Memory Care unit. KAITY consulted with physician who agrees memory care is not appropriate level of care for pt. KAITY, physician and Mark spoke with Joslyn at [facility] about this. KAITY placed follow up call to Joslyn to inquire about acceptance into [facility]isted [facility] with no return calls. KAITY updated pt brother Mark that [facility] has not accepted. Mark states that if appeal is lost and [facility] does not accept, pt will return home on Monday. Mark is agreeable to home health with no preference on companies used. Pt has all needed DME Referral made to Marita at [facility] for home health PT/OT. KAITY awaiting return call of acceptance. Discharge Date: 01/30/23, pending outcome of appeal Discharge Disposition: Home alone with 4 hours of caregivers a day. Brothers to support. Referral to [facility], social work to follow up on Monday for ability to accept. FARHAN Calix
== END 2023-01-27 15:40 | disposition home health service (06) | DRG 560 ==
PROVIDERS: Admitting Provider Family Medicine Geriatric Medicine; PCP Family Medicine; Referring Provider Family Medicine Geriatric Medicine; Visit Provider Family Medicine Geriatric Medicine
DX: S22.41XD Multiple fractures of ribs, right side, subsequent encounter for fracture with routine healing (principal); I50.32 Chronic diastolic (congestive) heart failure; M62.82 Rhabdomyolysis; I48.0 Paroxysmal atrial fibrillation; M06.9 Rheumatoid arthritis, unspecified; D50.9 Iron deficiency anemia, unspecified; F32.A Depression, unspecified; E78.5 Hyperlipidemia, unspecified; E55.9 Vitamin D deficiency, unspecified; I25.10 Atherosclerotic heart disease of native coronary artery without angina pectoris; W19.XXXD Unspecified fall, subsequent encounter; Z79.01 Long term (current) use of anticoagulants; M48.56XD Collapsed vertebra, not elsewhere classified, lumbar region, subsequent encounter for fracture with routine healing; N40.0 Benign prostatic hyperplasia without lower urinary tract symptoms; Z95.5 Presence of coronary angioplasty implant and graft; Z87.891 Personal history of nicotine dependence; G47.00 Insomnia, unspecified; G89.29 Other chronic pain; Z79.899 Other long term (current) drug therapy; Z79.82 Long term (current) use of aspirin; Z23 Encounter for immunization
CPT/HCPCS: 0134A; 36415; 71046; 80048; 85014; 85018; 85025; 87070; 87205; 91313; 92610; 93005; 94762; 97110; 97112; 97116; 97162; 97166; 97530; 97535

== ENCOUNTER 2023-01-21 07:23 | Emergency (ER) | payer MEDICARE, SELFPAY ==
[2023-01-21 07:25] VITALS: BP 126/73; PULSE 67; RESP 18; TEMP 36.6; O2SAT 97
--- NOTE | 2023-01-21 08:05 | EDS_ITS ---
HPI HPI - Fall History of Present Illness Chief Complaint: Fall Occured/Mechanism Occurred: Today Mechanism/Context: Yes same level fall Usually ambulates: Walker Pain/Injury Pain Location: head, upper extremity (Right hand) and lower extremity (Right hip) Quality of Pain: Dull Worsened by: Nothing Relieved by: Nothing Associated Symptoms Associated Symptoms: Negative for Parasthesias, Loss of consciousness or Amnesia Narrative Narrative: Patient presents after a fall that occurred today. Patient states he was using the restroom and tried to get up from the toilet. Patient states that his legs gave out and he fell. Patient states he hit the back of his head. Patient denies any loss of consciousness. Patient also hit his right hand and right hip. Patient denies any paresthesias. Patient states he has some weakness in his legs which is why he is admitted to the TCU. Patient denies any visual changes. Patient denies any nausea or vomiting. Patient is on Xarelto. [facility] Medical History Anemia Atherosclerotic heart disease of [place] coronary artery without angina pectoris Atrial fibrillation BPH (benign prostatic hyperplasia) Chronic edema Coronary artery disease Former smoker GERD (gastroesophageal reflux disease) History of heart attack History of stress test Lumbar spinal stenosis PAT (paroxysmal atrial tachycardia) Rheumatoid arthritis SVT (supraventricular tachycardia) Wears glasses Home Medications tamsulosin 0.4 mg capsule 0.4 mg PO DAILY@1800 Retention 07/18/20 [History Last Taken 01/05/23] folic acid 1 mg tablet 2 mg PO DAILY supplement 09/28/20 [History Last Taken 04/20] finasteride 1 mg tablet 5 mg PO DAILY prostate 12/30/20 [History Last Taken 01/06/23] multivitamin (Daily Multi-Vitamin tablet) 1 tab PO DAILY Check with primary doctor 01/01/21 [History Last Taken 01/06/23] aspirin 81 mg tablet,delayed release 81 mg PO DAILY heart #1 TAB 01/10/22 [Rx Last Taken 01/06/23] mirtazapine 15 mg tablet 15 mg PO QHS sleep 01/10/22 [History Last Taken 01/05/23] vitamin B12 2,500 mcg-folic acid 400 mcg disintegrating tablet 1 tab PO DAILY Check with primary doctor 01/10/22 [History Last Taken 10/19/22] golimumab 12.5 mg/mL intravenous solution (Simponi ARIA) 12.5 mg IV .[id number] injection 05/31/22 [History Last Taken Unknown] atorvastatin 40 mg tablet (Lipitor) 40 mg PO QHS Cholesterol #90 tabs 10/07/22 [Rx Last Taken 01/05/23] gabapentin 300 mg capsule 300 mg PO TID PRN PRN NERVE PAIN 10/20/22 [History Last Taken 10/20/22] rivaroxaban 20 mg tablet (Xarelto) 20 mg PO DAILY anticoagulation #1 TAB 10/21/22 [Rx Last Taken 01/05/23] amiodarone 200 mg tablet 200 mg PO DAILY heart rate #90 tabs 10/28/22 [Rx Last Taken 01/06/23] furosemide 40 mg tablet (Lasix) 80 mg (2 x 40 mg) PO DAILY water pill 90 days #180 tabs 11/14/22 [Rx Last Taken 01/06/23] spironolactone 25 mg tablet 25 mg PO DAILY water pill #30 tabs 11/14/22 [Rx Last Taken 01/06/23] trazodone 100 mg tablet 100 mg PO QHS Check with primary doctor 11/14/22 [History Last Taken 01/05/23] polysaccharide iron complex 150 mg iron capsule (Ferrex) 150 mg PO DAILY supplement 90 days #90 caps 12/14/22 [Rx Last Taken 01/06/23] prednisone 10 mg tablet 10 mg PO DAILY PRN RA FLARE UP 01/04/23 [History Last Taken Unknown] cephalexin 500 mg capsule 500 mg PO Q6H s/p kyphoplasty 01/05/23 [History Last Taken Unknown] acetaminophen 500 mg tablet 1,000 mg (2 x 500 mg) PO Q8 pain #0 tabs 01/06/23 [Rx Last Taken 01/06/23] arginine 7 gram-glutam 7 gram-CaHMB 1.5 [id number] oral pwd pkt (Tian (with collagen)) 1 packet PO BIDCM supplement #0 ea 01/06/23 [Rx Last Taken 01/06/23] ergocalciferol (vitamin D2) 1,250 mcg (50,000 unit) capsule (Vitamin D2) 1,250 mcg PO Q7D supplememt #0 caps 01/06/23 [Rx Last Taken 01/05/23] lidocaine 5 % topical patch 1 patch topical DAILY pain #0 ea 01/06/23 [Rx Last Taken 01/06/23] oxycodone 5 mg tablet 5 mg PO Q4H PRN PRN Pain Score 6-10 1 day #6 tabs 01/06/23 [Rx Last Taken 01/06/23] polyethylene glycol 3350 17 gram oral powder packet 17 g PO BID constipation #0 ea 01/06/23 [Rx Last Taken 01/06/23] sennosides 8.6 mg-docusate sodium 50 mg tablet (Stool Softener-Stimulant Laxative) 2 tab PO BID PRN PRN Constipation #0 tabs 01/06/23 [Rx Last Taken Unknown] Allergy/AdvReac Type Severity Reaction Status Date / Time No Known Allergies Allergy Verified 01/21/23 07:25 Family History Father CVA (cerebral vascular accident) Brother CAD (coronary artery disease) CABG X 3 Mother CVA (cerebral vascular accident) Grandfather Cancer prostate Surgical History H/O colonoscopy H/O umbilical hernia repair History of cardiac catheterization History of coronary artery stent placement (08/06/20) History of coronary artery stent placement History of lumbar surgery Hx of colectomy Hx of laminectomy Hx of transurethral resection of prostate S/P appendectomy S/P cataract surgery S/P hemorrhoidectomy S/P inguinal hernia repair S/P laparoscopic cholecystectomy S/P left colectomy S/P rotator cuff repair S/P vasectomy Social History household members: none Smoking Status: Former smoker how long ago did patient quit smokin years ago alcohol intake: never substance use type: does not use diet: low salt caffeine: Yes Type: coffee Number of servings: 4 ROS ROS ED Constitutional Constitutional ED: Denies chills or fever(s) Eyes Eyes: Denies blurry vision or change in vision ENT ENT ED: Denies rhinorrhea or sore throat Cardiovascular Cardiovascular: Denies chest pain or palpitations Respiratory/Chest Respiratory/Chest: Denies cough or dyspnea Gastrointestinal Gastrointestinal: Denies nausea or vomiting Genitourinary Genitourinary ED: Denies dysuria or hematuria Musculoskeletal Musculoskeletal: Reports back pain; Denies neck pain Integumentary Denies abscess or rash Neurologic Neurologic: Reports headache(s); Denies weakness Allergic/Immunologic Allergic/Immunologic ED: Denies mouth swelling or urticaria EXAM Physical Exam Const Vital Signs: 01/21/23 07:25 01/21/23 07:29 Temperature 97.9 F Temperature Source Temporal Pulse Rate 67 Respiratory Rate 18 Respiratory Effort Normal Non-Labored Respiratory Depth Normal Respiratory Pattern Normal Blood Pressure 126/73 H Blood Pressure Mean 90 Pulse Ox 97 Oxygen Delivery Method Room Air Room Air Positive well nourished and well developed General Appearance ED: well developed and NAD HEENT Reports normocephalic contusion and tenderness Neck full ROM and supple Resp normal respiratory effort and clear to auscultation bilaterally Cardio regular rate Rhythm: abnormal rhythm irregularly irregular Heart Sounds: murmur systolic III/ crescendo-decrescendo left sternal border Neuro oriented x3, CN's II-XII intact bilaterally, moves all extremities, no focal motor deficits and no sensory deficits noted [place] Coma Scale: document GCS findings Spontaneous Obeys Commands Oriented 15 Sensorium / Orientation: alert Motor Exam: strength 5/5 throughout Psych mental status grossly normal Skin Skin Narrative: There is a skin tear of the dorsal aspect of the right hand. Steri-Strips and dressing in place. MDM MDM MDM Narrative Medical decision making narrative: Differential diagnosis includes intracranial bleeding and closed head injury. CT scan of the brain will be obtained to assess for intracranial bleeding. There is minimal tenderness over the right hip but there is good range of motion. I do not feel hip x-rays are necessary at this time. Radiography Diagnostic Testing: Clinical Impression(s) from Imaging Studies Brain CT 01/21/23 08:12 IMPRESSION: No acute intracranial process. Small vessel ischemia. Electronically Signed: Shana Robb MD at 8:53 EDT , CT scan of the brain was obtained. There is no acute intracranial abnormality. This was interpreted by the radiologist and was also independently reviewed by myself. Treatment and Re-Evaluation Narrative: Patient was advised of this finding. Patient will be discharged back to the TCU. Patient was instructed to follow-up with his primary care physician in 5 to 7 days. Patient was given head injury instructions. Patient understood and was agreeable with plan. All questions were answered. Discharge Plan Triage Chief Complaint: Fall ED Provider: Josse Fish Dx/Rx/DC Orders Clinical Impression: Closed head injury, Fall Instructions: ED Head Injury (Adult) Prescriptions: No Action folic acid 1 mg tablet 2 mg PO DAILY mirtazapine 15 mg tablet 15 mg PO QHS multivitamin [Daily Multi-Vitamin] Tablet 1 tab PO DAILY finasteride 1 mg tablet 5 mg PO DAILY aspirin 81 mg tablet,delayed release (DR/EC) 81 mg PO DAILY Qty: 1 0RF furosemide [Lasix] 40 mg tablet 80 mg PO DAILY 90 Days Qty: 180 3RF spironolactone 25 mg tablet 25 mg PO DAILY Qty: 30 12RF polysaccharide iron complex [Ferrex 150] 150 mg iron capsule 150 mg PO DAILY 90 Days Qty: 90 3RF tamsulosin 0.4 MG capsule 0.4 mg PO DAILY@1800 trazodone 100 mg tablet 100 mg PO QHS vitamin [id number] acid 2,500-400 mcg tablet,disintegrating 1 tab PO DAILY Simponi ARIA 12.5 mg/mL Solution 12.5 mg IV .[id number] Patient Comments: PT GOES TO GET INJECTION EVERY 8 WEEKS CAN NOT REMEMBER LAST SHOT NEXT DUE IS IN OCTOBER gabapentin 300 mg capsule 300 mg PO TID PRN PRN (Reason: NERVE PAIN) Patient Comments: Take 1 (one) Capsule by mouth three times daily, as needed Xarelto 20 mg tablet 20 mg PO DAILY Qty: 1 0RF Rx Instructions: must administer with evening meal, start on 10/22/2022 prednisone 10 mg tablet 10 mg PO DAILY PRN (Reason: RA FLARE UP) Rx Instructions: As instructed cephalexin 500 mg capsule 500 mg PO Q6H Patient Comments: takes 1 capsule four times daily. Pt hasnt started meds yet polyethylene glycol 3350 17 gram Powder In Packet 17 g PO BID Qty: 0 0RF acetaminophen 500 mg Tablet 1,000 mg PO Q8 Qty: 0 0RF lidocaine 5 % Adhesive Patch,Medicated 1 patch topical DAILY Qty: 0 0RF Protocol: *Topical Application Instructions APPLICATION INSTRUCTIONS: lumbar spine in painful region ergocalciferol (vitamin D2) [Vitamin D2] 1,250 mcg (50,000 unit) Capsule 1,250 mcg PO Q7D Qty: 0 0RF oxycodone 5 mg Tablet 5 mg PO Q4H PRN PRN (Reason: Pain Score 6-10) 1 Days Qty: 6 0RF Tian (with collagen) 7-7-1.5 gram Powder In Packet 1 packet PO BIDCM Qty: 0 0RF sennosides-docusate sodium [Stool Softener-Stimulant Laxat] 8.6-50 mg Tablet 2 tab PO BID PRN PRN (Reason: Constipation) Qty: 0 0RF atorvastatin [Lipitor] 40 mg tablet 40 mg PO QHS Qty: 90 3RF amiodarone 200 mg tablet 200 mg PO DAILY Qty: 90 3RF Primary Care Provider: Gloria Hazel Referrals: Gloria Hazel MD [Primary Care Provider] - 5-7 Days Yogesh Lebron Chi, MD [Med Staff - Active Staff] - 5-7 Days Disposition Disposition: [facility] Discharge Location: [facility] Transitional Care Unit
--- NOTE | 2023-01-21 08:12 | CT_ITS ---
INDICATION: Trauma EXAMINATION: CT BRAIN - CT Head or Brain W/O Contrast Injection TECHNIQUE: Multiple axial images were obtained of the head without intravenous contrast. A radiation dose optimization technique was used for this scan. IV Contrast dosage and agent: None. RADIATION DOSAGE (If Supplied By Facility): CTDIvol = ( 44.99 ) mGy, DLP = ( 812.98 ) mGycm COMPARISON: Prior study dated: January 04, 2023 FINDINGS: BRAIN PARENCHYMA: No intra- or extra-axial hemorrhage. There are bilateral ill-defined low-attenuation foci within the white matter of the cerebral hemispheres, a nonspecific finding most commonly reflecting small vessel ischemia. No evidence of acute infarct. No intracranial mass or mass effect. There is preservation of the veliz/white matter interface. Posterior fossa structures are unremarkable. CSF SPACES: Appropriate for age. No hydrocephalus. Basal cisterns are patent. CALVARIUM, SKULL BASE, PARANASAL SINUSES AND MASTOID AIR CELLS: Clear. No discrete lytic or blastic abnormalities. ORBITS: Both globes, extraocular muscles, optic nerves and retrobulbar fat appear unremarkable. ASPECTS Score for Acute Strokes: 10 CT/Brain/Head without Contrast IMPRESSION: No acute intracranial process. Small vessel ischemia. Electronically Signed: Shana Robb MD at 8:53 EDT ,
== END 2023-01-21 09:06 | disposition skilled nursing facility (03) ==
PROVIDERS: Emergency Provider Emergency Medicine; PCP Family Medicine; Visit Provider Emergency Medicine
DX: S09.90XA Unspecified injury of head, initial encounter (principal); I25.10 Atherosclerotic heart disease of native coronary artery without angina pectoris; M25.551 Pain in right hip; M79.641 Pain in right hand; Z87.891 Personal history of nicotine dependence; M54.9 Dorsalgia, unspecified; W18.30XA Fall on same level, unspecified, initial encounter; Z79.01 Long term (current) use of anticoagulants
CPT/HCPCS: 70450; 99282

== ENCOUNTER → 2023-03-06 | Outpatient (CLI) | payer MEDICARE, SELFPAY ==
[2023-03-06 17:52] LABS: Absolute Lymphocyte Count 1.39 X10^3/uL (0.83-4.51); Absolute Neutrophil Count 4.2 X10^3/uL (2.0-7.7); Basophil# 0.05 X10^3/uL; Basophil% 0.7 % (0-1); Eosinophils% 5.9 % (0-5); Hemoglobin 12.5 g/dL (13.0-16.5); Lymphocyte # 1.39 X10^3/ul (0.83-4.51); Lymphocyte % 20.6 % (19-41); Mean Corp Hgb Conc 31.3 g/dL (32-36); Mean Corpuscular Hgb 32.1 pg (27.0-32.0); Mean Corpuscular Volume 102.8 fL (80-94); Mean Platelet Vol. 9.9 fl (6.2-12.0); Monocyte# 0.69 X10^3/uL; Monocyte% 10.2 % (0-10); NRBC Flagged by Analyzer 0 % (0-5); Neutrophil # 4.19 X10^3/uL (2.7-7.7); Neutrophil % 62.3 % (47-70); Platelet Count 211 K/mm3 (150-450); RBC Distribution Width CV 13.4 % (11.6-14.6); RBC Distribution Width SD 50.5 fl (35.1-43.9); Red Blood Count 3.89 M/mm3 (4.6-6.2); White Blood Count 6.7 K/mm3 (4.4-11.0)
[2023-03-06 18:20] LABS: Erythrocyte Sedimentation Rate 29 mm/hr (0-20)
[2023-03-06 18:23] LABS: ALB/GLOB Ratio 0.9 RATIO (0.9-2.4); AST(SGOT) 18 U/L (15-37); Alanine Aminotransfer ALT/SGPT 22 U/L (16-61); Albumin, Serum 3.2 g/dL (3.2-5.0); Alkaline Phosphatase 94 U/L (45-117); Anion Gap 4 (5-15); BUN 9 mg/dL (7-18); BUN/Creat Ratio 9.8 RATIO (10-20); Calcium,Total 8.7 mg/dL (8.5-10.1); Chloride 102 mmol/L (98-107); Creatinine, Serum 0.92 mg/dL (0.70-1.30); EST Glomerular Filtration Rate 84 mL/min (>60); Est Glom Filt Rate - Afr Amer 102 mL/min (>60); Globulin 3.5 g/dL (2.2-4.2); Glucose 78 mg/dL (74-106); Potassium 3.5 mmol/L (3.5-5.1); Protein, Total 6.7 g/dL (6.4-8.2); Sodium Level 137 mmol/L (136-145)
[2023-03-08 21:07] LABS: QNTFERON TB Mitogen Value > 10.00 IU/mL (.); QNTFERON TB1+ Ag Value 0.62 IU/mL (.); QNTIFERON TB Positive Criteria Negative (Negative)
== END | disposition home or self-care (01) ==
PROVIDERS: PCP Family Medicine; Referring Provider Internal Medicine Rheumatology; Visit Provider Internal Medicine Rheumatology
DX: M05.70 Rheumatoid arthritis with rheumatoid factor of unspecified site without organ or systems involvement (principal); Z79.899 Other long term (current) drug therapy
CPT/HCPCS: 36415; 80053; 85025; 85652; 86140; 86480

== ENCOUNTER 2023-03-31 14:41 | Outpatient (CLI) | payer MEDICARE, SELFPAY ==
[2023-03-31 15:19] VITALS: BP 106/48; PULSE 72; RESP 16; TEMP 36.6; O2SAT 93; BMI 27.4
[2023-03-31] MEDS: DENOSUMAB 60 MG/ML SC (15:28)
[2023-03-31] MEDS: 0.9% NaCl Peripheral Flush Adult/Peds IV (15:32)
[2023-03-31] MEDS: 0.9% NaCl IVPB Med Flush (250 mL) 15 ML IV (15:44)
[2023-03-31 16:34] VITALS: BP 102/46; PULSE 62; RESP 16; TEMP 36.4; O2SAT 95
== END 2023-03-31 14:42 | disposition home or self-care (01) ==
LOC: MEDOUTP 14:41
PROVIDERS: PCP Family Medicine; Referring Provider Internal Medicine Rheumatology; Visit Provider Internal Medicine Rheumatology
DX: M05.79 Rheumatoid arthritis with rheumatoid factor of multiple sites without organ or systems involvement (principal); M81.0 Age-related osteoporosis without current pathological fracture
CPT/HCPCS: 96365; 96372; J7050; A4216; J0897; J1602

== ENCOUNTER → 2023-05-08 | Outpatient (CLI) | payer MEDICARE, SELFPAY ==
[2023-05-08 15:35] LABS: Absolute Neutrophil Count 2.9 X10^3/uL (2.0-7.7); Basophil# 0.04 X10^3/uL; Basophil% 0.7 % (0-1); Eosinophil# 0.33 X10^3/uL; Eosinophils% 5.8 % (0-5); Hematocrit 41.5 % (40-54); Mean Corp Hgb Conc 31.3 g/dL (32-36); Mean Corpuscular Hgb 31.8 pg (27.0-32.0); Mean Corpuscular Volume 101.5 fL (80-94); Monocyte# 0.72 X10^3/uL; Monocyte% 12.7 % (0-10); NRBC Flagged by Analyzer 0 % (0-5); Neutrophil # 2.87 X10^3/uL (2.7-7.7); Neutrophil % 50.6 % (47-70); Platelet Count 204 K/mm3 (150-450); RBC Distribution Width CV 15.9 % (11.6-14.6); RBC Distribution Width SD 59.5 fl (35.1-43.9); Red Blood Count 4.09 M/mm3 (4.6-6.2); White Blood Count 5.7 K/mm3 (4.4-11.0)
[2023-05-08 16:24] LABS: ALB/GLOB Ratio 1.1 RATIO (0.9-2.4); AST(SGOT) 27 U/L (15-37); Alanine Aminotransfer ALT/SGPT 25 U/L (16-61); Albumin, Serum 3.6 g/dL (3.2-5.0); Alkaline Phosphatase 70 U/L (45-117); Anion Gap 5 (5-15); BUN 8 mg/dL (7-18); BUN/Creat Ratio 9.2 RATIO (10-20); Calcium,Total 8.5 mg/dL (8.5-10.1); Chloride 102 mmol/L (98-107); Creatinine, Serum 0.87 mg/dL (0.70-1.30); EST Glomerular Filtration Rate 89 mL/min (>60); Est Glom Filt Rate - Afr Amer 108 mL/min (>60); Globulin 3.2 g/dL (2.2-4.2); Glucose 67 mg/dL (74-106); Protein, Total 6.8 g/dL (6.4-8.2); Sodium Level 138 mmol/L (136-145)
== END | disposition home or self-care (01) ==
LOC: MTLAB 12:43
PROVIDERS: PCP Family Medicine; Referring Provider Internal Medicine Rheumatology; Visit Provider Internal Medicine Rheumatology
DX: M05.70 Rheumatoid arthritis with rheumatoid factor of unspecified site without organ or systems involvement (principal); M17.0 Bilateral primary osteoarthritis of knee; Z79.899 Other long term (current) drug therapy
CPT/HCPCS: 36415; 80053; 85025

== ENCOUNTER 2023-05-26 14:31 | Outpatient (CLI) | payer MEDICARE, SELFPAY ==
[2023-05-26 14:37] VITALS: BP 104/57; PULSE 80; RESP 16; TEMP 37.2; O2SAT 95; BMI 26.2
[2023-05-26] MEDS: 0.9% NaCl IVPB Med Flush (250 mL) 15 ML IV (15:00)
[2023-05-26] MEDS: NORMAL SALINE 0.9% IV (15:00)
[2023-05-26] MEDS: GOLIMUMAB IV (15:00)
--- OUTSIDE RECORDS SUMMARY | 2023-05-26 15:02 | XMS RPT_ITS | CCD ---
Author Name Unknown Address [address] [place] [address] Organization [facility] Care Team Providers Care Back Tufter Name Role Phone Gloria Hazel Primary Care Provider MARÍA HAAS Referring Unavailable GLORIA HAZEL Primary Care Unavailable GLORIA HAZEL Primary Care Unavailable Medications Completed/Discontinued Medications Medication Drug Class(es) Dates Sig (Normalized) Sig (Original) acetaminophen 325 mg oral tablet (3 sources) Start: 08-17-2020 take 2 tablets by mouth every four hours as needed acetaminophen (TYLENOL) 325 mg tablet Take 2 tablets by mouth every 4 hours as needed. 0 08/17/2020 Active Problems Active Problems Problem Classification Problem Date Documented Da te Episodic/Chronic Nutritional deficiencies (3 sources) Deficiency of macronutrients; Translations: [Unspecified severe protein-calorie malnutrition] Onset: 08-13-2020 08-13-2020 Chronic Other fractures (1 source) Closed fracture of multiple right ribs; Translations: [Multiple fractures of ribs, right side, initial encounter for closed fracture] 12-27-2022 Episodic Other lower respiratory disease (1 source) Rib pain; Translations: [Pleurodynia] 12-27-2022 Episodic Other lower respiratory disease (1 source) Pleurodynia; Translations: [Rib pain on right side] Onset: 12-27-2022 Episodic Other upper respiratory infections (1 source) Acute upper respiratory infection; Translations: [Acute upper respiratory infection, unspecified] Episodic Viral infection (1 source) Viral disease; Translations: [Viral infection, unspecified] Episodic Past or Other Problems Problem Classification Problem Date Documented Da te Episodic/Chronic Syncope (3 sources) Syncope; Translations: [Syncope and collapse] Onset: 08-12-2020 08-12-2020 Episodic Results Test Name Value Interpretation Reference Range Facil ity Vital Signs Date Time Vital Sign Value Performing Clinician Ham félix 12-27-2022 17:56-0400 Body temperature 97.81 [degF] María Ayan ROTARY OPERATOR.DIRECTOR OF GOVERNMENT SALES Work Phone: [facility] 12-27-2022 17:56-0400 Diastolic blood pressure 66 mm[Hg] María Ayan ROTARY OPERATOR.DIRECTOR OF GOVERNMENT SALES Work Phone: [facility] 12-27-2022 17:56-0400 Heart rate 72 /min María Ayan ROTARY OPERATOR.DIRECTOR OF GOVERNMENT SALES Work Phone: [facility] 12-27-2022 17:56-0400 Respiratory rate 16 /min María Ayan ROTARY OPERATOR.DIRECTOR OF GOVERNMENT SALES Work Phone: [facility] 12-27-2022 17:56-0400 SaO2% (BldA) [Mass fraction] 95 % María Ayan ROTARY OPERATOR.DIRECTOR OF GOVERNMENT SALES Work Phone: [facility] 12-27-2022 17:56-0400 Systolic blood pressure 102 mm[Hg] María Ayan ROTARY OPERATOR.DIRECTOR OF GOVERNMENT SALES Work Phone: [facility] 10-27-2021 14:52-0400 Body temperature 99.3 [degF] Lucero Mcwilliams ROTARY OPERATOR.DIRECTOR OF GOVERNMENT SALES Work Phone: [facility] 10-27-2021 14:52-0400 Body weight 67.5 kg Lucero Mcwilliams ROTARY OPERATOR.DIRECTOR OF GOVERNMENT SALES Work Phone: [facility] 10-27-2021 14:52-0400 Diastolic blood pressure 70 mm[Hg] Lucero Mcwilliams ROTARY OPERATOR.DIRECTOR OF GOVERNMENT SALES Work Phone: [facility] 10-27-2021 14:52-0400 Heart rate 76 /min Lucero Mcwilliams ROTARY OPERATOR.DIRECTOR OF GOVERNMENT SALES Work Phone: [facility] 10-27-2021 14:52-0400 Respiratory rate 18 /min Lucero Mcwilliams ROTARY OPERATOR.DIRECTOR OF GOVERNMENT SALES Work Phone: [facility] 10-27-2021 14:52-0400 SaO2% (BldA) [Mass fraction] 97 % Lucero Mcwilliams APRN.CNP Work Phone: [facility] 10-27-2021 14:52-0400 Systolic blood pressure 122 mm[Hg] Lucero Mcwilliams APRN.CNP Work Phone: [facility] Encounters Encounter Date Encounter Type Care Provider Facility Start: 12-27-2022 End: 12-27-2022 ambulatory GLORIA KODAK HAZEL Facility:[facility] Start: 12-27-2022 End: 12-27-2022 Patient encounter procedure María Ayan EDMONDSON.VERITO Work Phone: [facility] Plan of Treatment Date Care Activity Detail Author Start: 08-17-2023 DIABETES SCREEN DIABETES SCREEN [facility] Start: 01-27-2023 Influenza vaccination INFLUENZA (#1) [facility] Start: 05-29-2022 ADVANCE DIRECTIVE DISCUSSION ADVANCE DIRECTIVE DISCUSSION [facility] Start: 05-29-2022 DEPRESSION ASSESSMENT DEPRESSION ASSESSMENT [facility] Start: 10-27-2021 End: 11-10-2021 Influenza virus A and B RNA and SARS-CoV-2 (COVID-19) N gene panel - Respiratory specimen by JUDI with probe detection COVID WITH FLUA+B, ROUTINE Microbiology Routine URI, acute Viral illness Expected: 10/27/2021, Expires: 11/10/2021 [facility] Work Phone: Payers Date Payer Category Payer Medicare MMO MEDICARE MMO MEDADVANTAGE O [id number] 2020-Present [phone] [address] [place] [address] O [id number] 2020 Medicare MMO MEDICARE MMO MEDADVANTAGE O [id number] 2020-Present [phone] [address] [place] [address] [facility] [id number] 2020 Unknown [id number] Social History Date Type Detail Facility Start: 04-24-2016 Tobacco smoking stat us NHIS Ex-smoker [facility] Start: 04-24-2016 Tobacco use and exposure Smokeless tobacco non-user [facility] Start: 10-27-2021 End: 12-27-2022 Alcohol intake Not Asked [facility] Start: 1940 Sex Assigned At Not on file [facility] Start: 10-17-2021 End: 10-27-2021 Exposure to SARS-CoV-2 (event) Not sure [facility] Work Phone: History of tobacco use Current smoker [facility] Start: 03-02-2021 End: 12-27-2022 History of Social function [facility] Start: 03-02-2021 End: 12-27-2022 Tobacco use panel [facility] National Score (1-100), lower number is lower risk Not on file [facility] Clinical Notes 08-13-2020 to 12-27-2022 Patient InstructionsMaría Haas, DEBO.DIRECTOR OF GOVERNMENT SALES - 12/27/2022 6:16 PM EDTTelephone Encounter - Faustina Sheldon LPN - 10/28/2021 10:02 AM EDTTelephone Encounter - Tonio Johnson MD - 10/28/2021 7:54 AM EDT Note Date & Type Note Facility 12-27-2022 Note HNO ID: [id number] Author: Cami Nick RT(R) Service: Radiology Author Type: Technologist Type: Progress Notes Filed: 12/27/2022 6:38 PM Note Text: Radiology Service Progress Note PATIENT NAME: Bryce Rodriguez DATE OF SERVICE: December 27, 2022 TIME: 6:22 PM PATIENT IDENTITY VERIFICATION COMPLETED USING TWO (2) IDENTIFIERS: Name and Date of confirmed by patient verbally. FALL SCREENING: Has the patient had 2 falls in the last year or 1 fall with injury or currently using an Ambulatory Assistive Device (Walker, Cane, Wheelchair, Crutches, etc.)? No PATIENT GENDER DATA: Male PATIENT RELEVANT IMPLANT DATA REVIEWED: Yes RADIOLOGY DEPARTMENT: General X-ray: Exam(s) Completed: Rib X-Ray: Right PERIPHERAL IV DATA: Not applicable SIGNED BY: Cami Nick, RT(R) December 27, 2022 6:[address] [facility] 12-27-2022 Note HNO ID: [id number] Author: María Haas APRN.DIRECTOR OF GOVERNMENT SALES Service: ? Author Type: Nurse Practitioner Type: Progress Notes Filed: 12/27/2022 7:34 PM Note Text: Subjective The history is provided by the patient and a relative. No speech and language specialist was used. HPI Bryce Rodriguez is a 82 year old male who presents today for CC of right rib pain that started on Monday after he fell, landing on right side. He has used tylenol as needed. He is on xarelto. H/o osteoporosis BP 102/66 Pulse 72 Temp 36.6 ?C (97.8 ?F) Resp 16 SpO2 95% Social History Tobacco Use Smoking status: Former Smokeless tobacco: Never No past medical history on file. I have confirmed and edited as necessary, the [facility] Review of Systems Constitutional: Negative for chills and fever. Cardiovascular: Positive for chest pain (rib pain, right lower lateral). Musculoskeletal: Negative for joint pain and myalgias. Skin: Negative for itching and rash. All other systems reviewed and are negative. Objective Physical Exam Vitals and nursing note reviewed. Cardiovascular: Rate and Rhythm: Normal rate and regular rhythm. Pulmonary: Effort: Pulmonary effort is normal. Breath sounds: Normal breath sounds. Chest: Chest wall: Tenderness present. Comments: Area of pain and bruising. Skin: General: Skin is warm and dry. Neurological: Mental Status: He is alert and oriented to person, place, and time. Psychiatric: Mood and Affect: Affect normal. ASSESSMENT/PLAN: 1. Rib pain on right side - ICD9: 786.50, ICD10: R07.81 (primary diagnosis) - XR RIBS/CHEST 3V AP RIB/OBLS/CXR RIGHT RESULT: Fracture of the lateral right sixth ,seventh and eighth ribs. Small amount of fluid and atelectasis at both lung bases. No pneumothorax. Stable cardiac silhouette Significant degenerative change involving both shoulders. Postoperative change right humeral head. IMPRESSION: MINIMALLY DISPLACED RIGHT-SIDED RIB FRACTURES. SMALL AMOUNT OF FLUID AND ATELECTASIS AT BOTH LUNG BASES Interpreted by : THIAGO PISANO MD 2. Closed fracture of multiple ribs of right side, initial encounter - ICD9: 807.09, ICD10: S22.41XA Encourage deep breaths Tylenol (generic acetaminophen) 500 mg-2 tabs every 8 hrs as needed for pain Ice Heat Follow up in one week with Dr. Hazel * Seek medical care immediately, call 911, go to ER if you have chest pain, difficulty breathing, shortness of breath, inability to swallow. Diagnosis and treatment plan were discussed and questions were answered to the patient's satisfaction. Pt acknowledged understanding of concepts and follow up plan. Specific signs and symptoms that would indicate the need for higher level of care were discussed in detail warranting prompt ER evaluation. María Haas APRN.CNP [facility] 12-27-2022 Instructions María Haas APRN.CNP - 12/27/2022 7:08 PM EDT Encourage deep breaths Tylenol (generic acetaminophen) 500 mg-2 tabs every 8 hrs as needed for pain Ice Heat Follow up in one week with Dr. Hazel * Seek medical care immediately, call 911, go to ER if you have chest pain, difficulty breathing, shortness of breath, inability to swallow. documented in this encounter [facility] 12-27-2022 History of Present illness Narrative Images from the original note were not included. Subjective The history is provided by the patient and a relative. No speech and language specialist was used. HPI Bryce Rodriguez is a 82 year old male who presents today for CC of right rib pain that started on Monday after he fell, landing on right side. He has used tylenol as needed. He is on xarelto. H/o osteoporosis BP 102/66 Pulse 72 Temp 36.6 C (97.8 F) Resp 16 SpO2 95% Social History Tobacco Use Smoking status: Former Smokeless tobacco: Never No past medical history on file. I have confirmed and edited as necessary, the [facility] Review of Systems Constitutional: Negative for chills and fever. Cardiovascular: Positive for chest pain (rib pain, right lower lateral). Musculoskeletal: Negative for joint pain and myalgias. Skin: Negative for itching and rash. All other systems reviewed and are negative. Objective Physical Exam Vitals and nursing note reviewed. Cardiovascular: Rate and Rhythm: Normal rate and regular rhythm. Pulmonary: Effort: Pulmonary effort is normal. Breath sounds: Normal breath sounds. Chest: Chest wall: Tenderness present. Comments: Area of pain and bruising. Skin: General: Skin is warm and dry. Neurological: Mental Status: He is alert and oriented to person, place, and time. Psychiatric: Mood and Affect: Affect normal. ASSESSMENT/PLAN: 1. Rib pain on right side - ICD9: 786.50, ICD10: R07.81 (primary diagnosis) - XR RIBS/CHEST 3V AP RIB/OBLS/CXR RIGHT RESULT: Fracture of the lateral right sixth ,seventh and eighth ribs. Small amount of fluid and atelectasis at both lung bases. No pneumothorax. Stable cardiac silhouette Significant degenerative change involving both shoulders. Postoperative change right humeral head. IMPRESSION: MINIMALLY DISPLACED RIGHT-SIDED RIB FRACTURES. SMALL AMOUNT OF FLUID AND ATELECTASIS AT BOTH LUNG BASES Interpreted by : THIAGO PISANO MD 2. Closed fracture of multiple ribs of right side, initial encounter - ICD9: 807.09, ICD10: S22.41XA Encourage deep breaths Tylenol (generic acetaminophen) 500 mg-2 tabs every 8 hrs as needed for pain Ice Heat Follow up in one week with Dr. Hazel * Seek medical care immediately, call 911, go to ER if you have chest pain, difficulty breathing, shortness of breath, inability to swallow. Diagnosis and treatment plan were discussed and questions were answered to the patient's satisfaction. Pt acknowledged understanding of concepts and follow up plan. Specific signs and symptoms that would indicate the need for higher level of care were discussed in detail warranting prompt ER evaluation. María Haas APRN.VERITO documented in this encounter [facility] 10-28-2021 Miscellaneous Notes Phone call placed patient advised (see prior provider encounter) Patient reported after review of medication list d/c Kayla France verbalized understanding, agreed with plan of care. Faustina Sheldon LPN COVID test was positive. Stay home for 5 days from symptom onset. If you have no symptoms or your symptoms are resolving after 5 days, you can leave your house. Continue to wear a mask around others for 5 additional days. If you have a fever, continue to stay home until your fever resolves. Close contacts should quarantine. Treat with supportive care. He may contact his primary care physician to discuss COVID specific treatment options. F/u with worsening symptoms; ER if severe. documented in this encounter [facility] 10-27-2021 Instructions Lucero Mcwilliams APRN.VERITO - 10/27/2021 3:03 PM EDT Uri, acute (primary encounter diagnosis) Viral illness You have been diagnosed with an illness caused by a virus. Antibiotics do not cure viral infections. If given when not needed, antibiotics can be harmful. The treatments described below will help you feel better while your body's own defenses are fighting the virus. General Instructions: Drink extra water and juice. Use a cool mist vaporizer or saline nasal spray to relieve congestion. For Sore throats, use ice chips or sore throat spray; lozenges for older children and adults. Specific Medications: Fever, aches, ear pain: Use medicines according to the package instructions or as directed by your healthcare provider. Stop the medication when the symptoms get better. No follow-ups on file. documented in this encounter [facility] 10-27-2021 History of Present illness Narrative This note was created using [employer]. Subjective Bryce Rodriguez is a 80 year old male. 80 year old male with PMH irregular heart beat, hyperlipidemia, RA and cardiac stents (on Xarelto) presents requesting COVID testing. Acute onset Monday night +cough +nasal congestion +fever + chills +body aches + malaise Denies N/V/D Denies skin rash or lesions. States that he has had COVID vaccine. He works at [employer], states his last day was October 09. Unknown if he was in direct contact with ill persons. 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 Denies tobacco usage. The history is provided by the patient. No speech and language specialist was used. URI He complains of cough. There is no chest tightness, difficulty breathing, frequent throat clearing, hemoptysis, hoarse voice, shortness of breath, sputum production or wheezing. This is a new problem. The current episode started in the past 7 days. The problem occurs constantly. The problem has been unchanged. The cough is non-productive. Associated symptoms include a fever, headaches, malaise/fatigue, myalgias, nasal congestion, postnasal drip, rhinorrhea, sneezing and a sore throat. Pertinent negatives include no appetite change, chest pain, dyspnea on exertion, ear congestion, ear pain, heartburn, orthopnea, PND, sweats, trouble swallowing or weight loss. His symptoms are aggravated by nothing. His symptoms are alleviated by nothing. He reports no improvement on treatment. There are no known risk factors for lung disease. There is no history of asthma, bronchiectasis, bronchitis, COPD, emphysema or pneumonia. No past medical history on file. No past surgical history on file. ALLERGIES Patient has no known allergies. MEDICATIONS finasteride (PROSCAR) 5 mg tablet Take 5 mg by mouth once daily. hydrOXYchloroQUINE (PLAQUENIL) 200 mg tablet Take by mouth once daily. predniSONE (DELTASONE) 5 mg tablet Take 5 mg by mouth once daily. acetaminophen (TYLENOL) 325 mg tablet Take 2 tablets by mouth every 4 hours as needed. tamsulosin (FLOMAX) 0.4 mg Take 1 capsule by mouth daily at bedtime. atorvastatin (LIPITOR) 40 mg tablet Take 1 tablet by mouth daily at bedtime. metoprolol succinate ER (TOPROL XL) 25 mg 24 hr tablet Take 0.5 tablets by mouth once daily. apixaban (ELIQUIS) 5 mg tab(s) Take 1 tablet by mouth twice daily. sulfaSALAzine EC (AZULFIDINE EN) 500 mg EC tablet Take 1 tablet by mouth three times daily. folic acid 1 mg tablet Take 1 tablet by mouth once daily. clopidogrel (PLAVIX) 75 mg tablet Take 1 tablet by mouth once daily. traZODone (DESYREL) 50 mg tablet Take 1 tablet by mouth daily at bedtime. cyclobenzaprine (FLEXERIL) 5 mg tablet Take 1 tablet by mouth three times daily as needed for Muscle Spasm. amiodarone (PACERONE) 200 mg tablet Take 200 mg by mouth twice daily. aspirin (DRAGAN CHEWABLE ASPIRIN) 81 mg chewable tablet Take 81 mg by mouth once daily. mirtazapine (REMERON) 15 mg tablet Take 15 mg by mouth daily at bedtime. topiramate (TOPAMAX) 25 mg tablet Take 25 mg by mouth twice daily. senna (SENNA) 8.6 mg tab Take 8.6 mg by mouth twice daily. methotrexate 2.5 mg tablet Ketorolac Tromethamine (ACLUAR LS) 0.4 % drop prednisoLONE acetate (PRED FORTE, ECONOPRED PLUS) 1 % ophthalmic suspension No family history on file. Social History Tobacco Use Smoking status: Former Smoker Smokeless tobacco: Never Used Substance Use Topics Alcohol use: Not on file Drug use: Not on file Review of Systems Constitutional: Positive for fever and malaise/fatigue. Negative for appetite change, diaphoresis, fatigue and weight loss. HENT: Positive for congestion, postnasal drip, rhinorrhea, sneezing and sore throat. Negative for ear pain, hoarse voice and trouble swallowing. Eyes: Negative for pain, discharge, redness and itching. Respiratory: Positive for cough. Negative for apnea, hemoptysis, sputum production, choking, chest tightness, shortness of breath and wheezing. Cardiovascular: Negative for chest pain, dyspnea on exertion, palpitations, leg swelling and PND. Gastrointestinal: Negative for abdominal pain, constipation, diarrhea, heartburn, nausea and vomiting. Musculoskeletal: Positive for myalgias. Negative for arthralgias and back pain. Skin: Negative for color change, pallor, rash and wound. Allergic/Immunologic: Positive for immunocompromised state. Negative for environmental allergies. Neurological: Positive for headaches. Negative for dizziness, facial asymmetry, light-headedness and numbness. Hematological: Negative for adenopathy. Does not bruise/bleed easily. Psychiatric/Behavioral: Negative for agitation and behavioral problems. Objective BP 122/70 Pulse 76 Temp 37.4 C (99.3 F) (Tympanic) Resp 18 Wt 67.5 kg (148 lb 12.8 oz) SpO2 97% BMI 26.36 kg/m Physical Exam Vitals and nursing note reviewed. Constitutional: General: He is not in acute distress. Appearance: Normal appearance. He is not ill-appearing, toxic-appearing or diaphoretic. HENT: Head: Normocephalic and atraumatic. Right Ear: External ear normal. Left Ear: External ear normal. Nose: Nose normal. No congestion or rhinorrhea. Mouth/Throat: Mouth: Mucous membranes are moist. Pharynx: Oropharynx is clear. No oropharyngeal exudate or posterior oropharyngeal erythema. Eyes: General: Right eye: No discharge. Left eye: No discharge. Extraocular Movements: Extraocular movements intact. Conjunctiva/sclera: Conjunctivae normal. Pupils: Pupils are equal, round, and reactive to light. Cardiovascular: Rate and Rhythm: Normal rate and regular rhythm. Pulses: Normal pulses. Heart sounds: Normal heart sounds. No murmur heard. No friction rub. No gallop. Pulmonary: Effort: Pulmonary effort is normal. No respiratory distress. Breath sounds: Normal breath sounds. No stridor. No wheezing, rhonchi or rales. Chest: Chest wall: No tenderness. Abdominal: General: Abdomen is flat. There is no distension. Palpations: Abdomen is soft. There is no mass. Tenderness: There is no abdominal tenderness. There is no guarding or rebound. Hernia: No hernia is present. Musculoskeletal: General: No swelling, tenderness, deformity or signs of injury. Normal range of motion. Cervical back: Normal range of motion and neck supple. No rigidity or tenderness. Right lower leg: No edema. Left lower leg: No edema. Lymphadenopathy: Cervical: No cervical adenopathy. Skin: General: Skin is warm and dry. Capillary Refill: Capillary refill takes less than 2 seconds. Coloration: Skin is not jaundiced or pale. Findings: No bruising, lesion or rash. Neurological: General: No focal deficit present. Mental Status: He is alert and oriented to person, place, and time. Cranial Nerves: No cranial nerve deficit. Sensory: No sensory deficit. Motor: No weakness. Coordination: Coordination normal. Gait: Gait normal. Deep Tendon Reflexes: Reflexes normal. Psychiatric: Mood and Affect: Mood normal. Behavior: Behavior normal. Thought Content: Thought content normal. Assessment and Plan ASSESSMENT/PLAN: 1. URI, acute - ICD9: 465.9, ICD10: J06.9 (primary diagnosis) - Discussed viral etiology and rationale for treatment. - Symptomatic treatment with prn analgesia - Supportive care with fluids and rest - The patient may also use OTC cough and cold meds as needed, warm salt water gargles, throat lozenges and/or OTC throat spray as needed and nasal saline gtts and suction prn. - Follow up in 3-5 days if symptoms persist or sooner if worsening of symptoms - COVID WITH FLUA+B, ROUTINE 2. Viral illness - ICD9: 079.99, ICD10: B34.9 - Discussed viral etiology and rationale for treatment. - Symptomatic treatment with prn analgesia - Supportive care with fluids and rest - The patient may also use OTC cough and cold meds as needed, warm salt water gargles, throat lozenges and/or OTC throat spray as needed and nasal saline gtts and suction prn. - Follow up in 3-5 days if symptoms persist or sooner if worsening of symptoms - - COVID WITH FLUA+B, ROUTINE-obtained and pending Lucero Mcwilliams APRN.DIRECTOR OF GOVERNMENT SALES documented in this encounter [facility] 08-17-2020 Note HNO ID: [id number] Author: Sara (Rn) ELROY Edge Service: Care Management Author Type: Registered Nurse Type: Care Mgt Progress Note Filed: 08/17/2020 2:43 PM Note Text: CARE MANAGEMENT DISCHARGE NOTE SERVICE DATE: 08/17/2020 SERVICE TIME: 2:28 PM LOS: 1 day Admission Date: 08/12/2020 DISCHARGE ARRANGEMENT (list agency and phone number) Discharge Arrangement: assisted facility Was an expedited discharge program used?: Yes Type: (MMO Waiver) Provider Name: Jerrod GALVEZ CAREGIVER ASSESSMENT: HANDOFF COMMUNICATION: Handoff to: Primary Care Physician Primary Care Physician Name/Phone: Gloria Hazel MD TRANSPORTATION ARRANGEMENTS: Transportation Arrangements: Ambulance/[facility] Transportation Agency and Phone #:: [facility] ( [facility] ) [phone] / [phone] Date of Trip: 08/17/20 Time of Trip: 1500 Type of Service: Wheelchair Is Patient Medicaid Pending?: No Discussion of financial coverage occurred with: Patient Emergency Medical Tech Location: [facility] Destination: [facility] Financial Care Management Responsibility: None ADDITIONAL CONTACT RESOURCES: None Patient has been discharged to [facility]. [facility] is transporting patient via WC at 15:00. Patient and his dtr Melanie have been notified. RN aware of discharge time. Orders have been faxed and facility notified. SIGNATURE: Sara Edge RN PATIENT NAME: Bryce Rodriguez DATE: August 17, 2020 TIME: 2:28 PM PAGER/CONTACT #: [phone] [facility] 08-17-2020 Note HNO ID: [id number] Author: Sara Lee) ELROY Edge Service: Care Management Author Type: Registered Nurse Type: Care Mgt Progress Note Filed: 08/17/2020 10:48 AM Note Text: CARE MANAGEMENT PROGRESS NOTE SERVICE DATE: 08/17/2020 SERVICE TIME: 10:45 AM LOS: 1 day Epic notes reviewed. PT/OT evals recommending SNF at discharge and patient agreeable. Has been accepted at [facility]. Precert waivered and facility has bed available today. Covid test and requested updates sent. Anticipate discharge today. SIGNATURE: Sara Edge RN PATIENT NAME: Bryce Rodriguez DATE: August 17, 2020 TIME: 10:45 AM PAGER/CONTACT #: [phone] [facility] 08-17-2020 Note HNO ID: [id number] Author: Macrina Shea Service: Hospital Medicine Author Type: Physician Type: Progress Notes Filed: 08/17/2020 11:12 AM Note Text: INPATIENT PROGRESS NOTE SERVICE DATE: 08/17/2020 SERVICE TIME: 10:52 a Subjective CHIEF COMPLAINT: f/u medical issues listed below INTERVAL HPI: Had BM No lightheaded Little appetite Current Facility-Administered Medications Medication Dose Route Frequency - traZODone 50 mg tab(s) (DESYREL) 50 mg ORAL AT BEDTIME - sulfaSALAzine EC 500 mg tab(s) (AZULFIDINE EN) 500 mg ORAL TID - folic acid 1 mg tab(s) 1 mg ORAL DAILY - amiodarone 200 mg tab(s) (PACERONE) 200 mg ORAL BID - aspirin 81 mg chewable tab(s) 81 mg ORAL DAILY - mirtazapine 15 mg (REMERON) 15 mg ORAL AT BEDTIME - topiramate 25 mg tab(s) (TOPAMAX) 25 mg ORAL BID - clopidogrel 75 mg tab(s) (PLAVIX) 75 mg ORAL DAILY - apixaban 5 mg tab(s) (ELIQUIS) 5 mg ORAL BID - atorvastatin 40 mg tab(s) (LIPITOR) 40 mg ORAL AT BEDTIME - pill splitter (patient-specific) 1 Each Miscell. (Med.Supl.;Non-Drugs) PRN - metoprolol succinate ER 12.5 mg tab(s) (TOPROL XL) 12.5 mg ORAL DAILY - tamsulosin 0.4 mg cap(s) (FLOMAX) 0.4 mg ORAL AT BEDTIME - cyclobenzaprine 5 mg tab(s) (FLEXERIL) 5 mg ORAL TID PRN - oxyCODONE-acetaminophen 5-325 mg 1 tablet (PERCOCET) 1 tablet ORAL q 6 H PRN - acetaminophen 650 mg tab(s) (TYLENOL) 650 mg ORAL q 4 H PRN Objective PHYSICAL EXAM: BP 110/59 Pulse 76 Temp (Src) 98.4 (Oral) Resp 16 Ht 5' 3 (1.60m) Wt 122 lb 3.2 oz (55.4kg) SpO2 96% BMI 21.65 kg/(m2). O2 Therapy: Room Air Physical Exam Performed GENERAL: Alert, no distress, cooperative SKIN: Skin color, texture, turgor normal. No rash HEAD/SINUSES: No significant findings EYES: EOMI EARS: External ears normal NOSE: Nares normal. Septum midline. OROPHARYNX: Lips normal. LUNGS: Lungs clear ant CARDIAC:reg ABDOMEN: Abdomen soft, non-tender,ND EXTREMITIES: Extremities normal, no deformities, edema, clubbing or skin discoloration. DATA: Diagnostic tests reviewed for today's visit: Most recent labs and imaging results. Assessment/Plan 79 yo M with PMHx of HTN, BPH, CAD, Afib Recent ND, RA admit 08/12/20 for syncope 3/11/21 cardiac cath: CAD. Successful PCI on OM2 with GAGE. Unsuccessful PCI of PROJECT STRUCTURAL ENGINEER of LAD Recommendation: he may need re attempt at PCI of PROJECT STRUCTURAL ENGINEER of LAD or referral for ARELLANO to LAD Cardiology had evaluated him and recommended Holter monitor to assess for conduction deficits Cardovascular surgery had evaluated patient. Per Dr. Kyree Gardner, Upon review of the catheterization, it appears that patient has a stent in the OM and PROJECT STRUCTURAL ENGINEER of the LAD. He does have some left to left and right to left collaterals to backfill the LAD in a retrograde fashion, however LAD does appear severely calcified and atretic and a questionable target for surgical bypass recommendations are as follows: ? -Agree with medical management for now of the patient's coronary artery disease per cardiology. -May benefit from Holter monitor to assess for conduction deficits which can cause sudden loss of consciousness, we will leave this to cardiology to address -Potential repeat angiography in the future to address LAD occlusion -From a surgical standpoint, questionable benefit of single-vessel bypass to an atretic, calcified LAD system F/u with [facility] for cardiac care I reviewed meds: BP 97/55 1) On percocet->can cause hypotension. Will decrease dose. Will also order tylenol for pain 2)Metoprolol->hold if hypotensive or bradycardic 3) Flexeril->can cause hypotension/mental status changes. Will decrease dose 4)flomax->can cause orthostatic hypotension. Will change dosing to night Update 08/17/20 BP 110/59 No lightheadedness Plan: discharge to SNF -[facility] Medication and Non-Pharmacologic VTE Prophylaxis/Anticoagulants Anticoagulant AND Antiplatelet Medications (From admission, onward) Comment Start Dose Route Frequency Last Action Ordered Stop 08/13/20 2100 apixaban 5 mg tab(s) (ELIQUIS) 5 mg ORAL 2 TIMES DAILY Given, 08/17 91308/13/20 1300 -- 08/13/20 1330 clopidogrel 75 mg tab(s) (PLAVIX) 75 mg ORAL DAILY Given, 08/17 91208/13/20 1300 -- 08/13/20 0900 aspirin 81 mg chewable tab(s) 81 mg ORAL DAILY Given, 08/17 91308/13/20 0201 -- 08/12/20 2130 vte non-pharmacologic prophylaxis - none indicated (fl,oh) 08/12/202129 activity - mobilize patient (mt,in) VTE Prophylaxis: SIGNATURE: Macrina Shea DO PATIENT NAME: Bryce Rodriguez DATE: August 17, 2020 TIME: PAGER: [facility] 08-16-2020 Note HNO ID: [id number] Author: Macrina Shea Service: Hospital Medicine Author Type: Physician Type: Progress Notes Filed: 08/16/2020 12:54 PM Note Text: INPATIENT PROGRESS NOTE SERVICE DATE: 08/16/2020 SERVICE TIME: 12:18 p Subjective CHIEF COMPLAINT: f/u medical issues listed below INTERVAL HPI: denies lightheadedness Current Facility-Administered Medications Medication Dose Route Frequency - traZODone 50 mg tab(s) (DESYREL) 50 mg ORAL AT BEDTIME - sulfaSALAzine EC 500 mg tab(s) (AZULFIDINE EN) 500 mg ORAL TID - cyclobenzaprine 10 mg tab(s) (FLEXERIL) 10 mg ORAL TID PRN - folic acid 1 mg tab(s) 1 mg ORAL DAILY - amiodarone 200 mg tab(s) (PACERONE) 200 mg ORAL BID - aspirin 81 mg chewable tab(s) 81 mg ORAL DAILY - mirtazapine 15 mg (REMERON) 15 mg ORAL AT BEDTIME - tamsulosin 0.4 mg cap(s) (FLOMAX) 0.4 mg ORAL DAILY - topiramate 25 mg tab(s) (TOPAMAX) 25 mg ORAL BID - clopidogrel 75 mg tab(s) (PLAVIX) 75 mg ORAL DAILY - apixaban 5 mg tab(s) (ELIQUIS) 5 mg ORAL BID - atorvastatin 40 mg tab(s) (LIPITOR) 40 mg ORAL AT BEDTIME - pill splitter (patient-specific) 1 Each Miscell. (Med.Supl.;Non-Drugs) PRN - metoprolol succinate ER 12.5 mg tab(s) (TOPROL XL) 12.5 mg ORAL DAILY - oxyCODONE-acetaminophen 5-325 mg 1-2 tablet (PERCOCET) 1-2 tablet ORAL q 6 H PRN Objective PHYSICAL EXAM: BP 97/55 Pulse 65 Temp (Src) 98.2 (Oral) Resp 18 Ht 5' 3 (1.60m) Wt 122 lb 3.2 oz (55.4kg) SpO2 96% BMI 21.65 kg/(m2). O2 Therapy: Room Air Physical Exam Performed GENERAL: Alert, no distress, cooperative Sitting in chair eating lunch SKIN: Skin color, texture, turgor normal. No rash HEAD/SINUSES: No significant findings EYES: EOMI EARS: External ears normal NOSE: Nares normal. Septum midline. OROPHARYNX: Lips normal. LUNGS: Lungs clear ant CARDIAC:reg ABDOMEN: Abdomen soft, non-tender,ND EXTREMITIES: Extremities normal, no deformities, edema, clubbing or skin discoloration. DATA: Diagnostic tests reviewed for today's visit: Most recent labs and imaging results. Assessment/Plan 79 yo M with PMHx of HTN, BPH, CAD, Afib Recent ND, RA admit 08/12/20 for syncope 08/06/20 cardiac cath: CAD. Successful PCI on OM2 with GAGE. Unsuccessful PCI of PROJECT STRUCTURAL ENGINEER of LAD Recommendation: he may need re attempt at PCI of PROJECT STRUCTURAL ENGINEER of LAD or referral for ARELLANO to LAD Cardiology had evaluated him and recommended Holter monitor to assess for conduction deficits Cardovascular surgery had evaluated patient. Per Dr. Kyree Gardner, Upon review of the catheterization, it appears that patient has a stent in the OM and PROJECT STRUCTURAL ENGINEER of the LAD. He does have some left to left and right to left collaterals to backfill the LAD in a retrograde fashion, however LAD does appear severely calcified and atretic and a questionable target for surgical bypass recommendations are as follows: ? -Agree with medical management for now of the patient's coronary artery disease per cardiology. -May benefit from Holter monitor to assess for conduction deficits which can cause sudden loss of consciousness, we will leave this to cardiology to address -Potential repeat angiography in the future to address LAD occlusion -From a surgical standpoint, questionable benefit of single-vessel bypass to an atretic, calcified LAD system F/u with [facility] for cardiac care I reviewed meds: BP 97/55 1) On percocet->can cause hypotension. Will decrease dose. Will also order tylenol for pain 2)Metoprolol->hold if hypotensive or bradycardic 3) Flexeril->can cause hypotension/mental status changes. Will decrease dose 4)flomax->can cause orthostatic hypotension. Will change dosing to night Medication and Non-Pharmacologic VTE Prophylaxis/Anticoagulants Anticoagulant AND Antiplatelet Medications (From admission, onward) Comment Start Dose Route Frequency Last Action Ordered Stop 08/13/20 2100 apixaban 5 mg tab(s) (ELIQUIS) 5 mg ORAL 2 TIMES DAILY Given, 08/16 75208/13/20 1300 -- 08/13/20 1330 clopidogrel 75 mg tab(s) (PLAVIX) 75 mg ORAL DAILY Given, 08/16 75208/13/20 1300 -- 08/13/20 0900 aspirin 81 mg chewable tab(s) 81 mg ORAL DAILY Given, 08/16 75208/13/20 0201 -- 08/12/202129 vte non-pharmacologic prophylaxis - none indicated (mt,oh) 08/12/202129 activity - mobilize patient (mt,in) VTE Prophylaxis: SIGNATURE: Macrina Shea DO PATIENT NAME: Bryce Rodriguez DATE: August 16, 2020 TIME: 12:19 PM PAGER: [facility] 08-15-2020 Note HNO ID: [id number] Author: Paul Tony Service: Hospital Medicine Author Type: Physician Type: Progress Notes Filed: 08/15/2020 10:46 AM Note Text: INPATIENT PROGRESS NOTE SERVICE DATE: 08/15/2020 SERVICE TIME: 10:08 AM PRIMARY SERVICE: Hospitalist Subjective CHIEF COMPLAINT: Syncope INTERVAL HPI: Pt states he had no episode of syncope last night. Denies f/c/chest pain or dyspnea. Tolerating diet. Reports of left hip pain and states I have had this before but slight increase.. Denies urination concerns. Current Facility-Administered Medications Medication Dose Route Frequency - traZODone 50 mg tab(s) (DESYREL) 50 mg ORAL AT BEDTIME - sulfaSALAzine EC 500 mg tab(s) (AZULFIDINE EN) 500 mg ORAL TID - cyclobenzaprine 10 mg tab(s) (FLEXERIL) 10 mg ORAL TID PRN - folic acid 1 mg tab(s) 1 mg ORAL DAILY - amiodarone 200 mg tab(s) (PACERONE) 200 mg ORAL BID - aspirin 81 mg chewable tab(s) 81 mg ORAL DAILY - mirtazapine 15 mg (REMERON) 15 mg ORAL AT BEDTIME - tamsulosin 0.4 mg cap(s) (FLOMAX) 0.4 mg ORAL DAILY - topiramate 25 mg tab(s) (TOPAMAX) 25 mg ORAL BID - clopidogrel 75 mg tab(s) (PLAVIX) 75 mg ORAL DAILY - apixaban 5 mg tab(s) (ELIQUIS) 5 mg ORAL BID - atorvastatin 40 mg tab(s) (LIPITOR) 40 mg ORAL AT BEDTIME - pill splitter (patient-specific) 1 Each Miscell. (Med.Supl.;Non-Drugs) PRN - metoprolol succinate ER 12.5 mg tab(s) (TOPROL XL) 12.5 mg ORAL DAILY - oxyCODONE-acetaminophen 5-325 mg 1-2 tablet (PERCOCET) 1-2 tablet ORAL q 6 H PRN ROS: All remaining ROS >14 were negative Objective PHYSICAL EXAM: BP 103/54 Pulse 68 Temp (Src) 98.1 (Oral) Resp 17 Ht 5' 3 (1.60m) Wt 122 lb 3.2 oz (55.4kg) SpO2 98% BMI 21.65 kg/(m2). O2 Therapy: Room Air Physical Exam Performed GENERAL: Alert, no distress, cooperative OROPHARYNX: Lips, mucosa, and tongue normal. Teeth and gums normal. Oropharynx normal. NECK: No jugulovenous distention, No carotid bruits, Carotid pulse normal contour, Supple LUNGS: Lungs clear to auscultation, Good diaphragmatic excursion CARDIAC: Normal S1 and S2; no rubs, murmurs, or gallops ABDOMEN: Abdomen soft, non-tender, BS normal, No masses or organomegaly EXTREMITIES: Extremities normal, no deformities, edema, clubbing or skin discoloration. Good capillary refill., No ulcers DATA: Diagnostic tests reviewed for today's visit: Most recent labs and imaging results. Assessment/Plan 79 y/o male Syncope with unclear Etiology - Vital signs stable - Orthostatics: Neg - s/p Cardiology evaluation and recs to place pt on Event monitor upon discharge CAD with hx of PCI with Afib - LDL 55 - s/p CTS and no interventions needed. - Continue with Amio, Eliquis, ASA, Plavix, BB FEN - Stable lytes as of 08/12/20 with GFR >60 Heme - Stable H/H at 11.8/36.5 Left hip pain - Continue with prn pain meds - Ordered left hip x-ray for review. Severe protein-calorie malnutrition -Continue with current diet Social - s/p PT/OT evaluation and recs for SNF Pt [facility] and will Likely be on Monday. Medication and Non-Pharmacologic VTE Prophylaxis/Anticoagulants Anticoagulant AND Antiplatelet Medications (From admission, onward) Comment Start Dose Route Frequency Last Action Ordered Stop 08/13/20 2100 apixaban 5 mg tab(s) (ELIQUIS) 5 mg ORAL 2 TIMES DAILY Given, 08/15 81708/13/20 1300 -- 08/13/20 1330 clopidogrel 75 mg tab(s) (PLAVIX) 75 mg ORAL DAILY Given, 08/15 81708/13/20 1300 -- 08/13/20 0900 aspirin 81 mg chewable tab(s) 81 mg ORAL DAILY Given, 08/15 81708/13/20 0201 -- 08/12/202129 vte non-pharmacologic prophylaxis - none indicated (mt,in) 08/12/202129 activity - mobilize patient (mt,in) VTE Prophylaxis: VTE prophylaxis appropriate SIGNATURE: Paul Tony MD PATIENT NAME: Bryce Rodriguez DATE: August 15, 2020 TIME: 10:08 AM [facility] 08-15-2020 Note HNO ID: [id number] Author: Interface Note Service: ? Author Type: ? Type: Progress Notes Filed: 08/15/2020 3:06 AM Note Text: Epic Scheduled Downtime: 08/15/2020 1:00:00 AM to 08/15/2020 2:48:00 AM [facility] 08-14-2020 Note HNO ID: [id number] Author: Fernando Guidry Service: Hospital Medicine Author Type: Physician Type: Progress Notes Filed: 08/14/2020 2:58 PM Note Text: INPATIENT PROGRESS NOTE CHIEF COMPLAINT: syncope INTERVAL HPI: no new complaints. No CP/SOB/. Denies dizziness/palpitations PHYSICAL EXAM: BP 107/57 Pulse 84 Temp (Src) 99 (Oral) Resp 18 Ht 5' 3 (1.60m) Wt 119 lb (54.0kg) SpO2 97% BMI 21.09 kg/(m2). O2 Therapy: Room Air GENERAL: Alert, no distress, cooperative LUNGS: Lungs clear to auscultation, Good diaphragmatic excursion CARDIAC: Normal S1 and S2; no rubs, murmurs, or gallops ABDOMEN: Abdomen soft, non-tender, BS normal, No masses or organomegaly EXTREMITIES: no edema NEURO: Cranial nerves II-XII intact DATA: Diagnostic tests reviewed for today's visit: CBC, Coags, BMP, Mg, Phos Recent Labs 08/12/20 2138 WBC 7.07 HB 11.8* HCT 35.5* PLT 291 INR 1.1 APTT 27.1 NA 141 K 3.8 CHLOR 110* CO2 22 BUN 15 CREAT 0.63* GLUC 92 CA 8.4* MG 2.0 Assessment/Plan # syncope- unclear etio. orthos neg. Suspect arrythmia related. Seen by cardiology.recommend event monitor at DC No witnessed seizure like activity No focal neuro deficits ? # CAD s/p PCI-c/w ASA> also added plavix/BB. Seen by CTS. No plans for surgery. ? # P afib- rate controlled. C/w eliquis. on amio ? # h/o RA_ on methotrexate/sulfasalazine ? # severe protein calorie malnutrition ? PT/OT recommend SNF at DC Plan for [facility] but no bed available till Monday. Will need rpt COVID test ordered over weekend for discharge on monday ? SIGNATURE: Fernando Guidry MD PATIENT NAME: Bryce Rodriguez DATE: August 14, 2020 TIME: 2:55 PM PAGER: [facility] 08-14-2020 Note HNO ID: [id number] Author: Cindy CoronaRn) ELROY Montes Service: Care Management Author Type: Registered Nurse Type: Care Mgt Progress Note Filed: 08/14/2020 1:46 PM Note Text: CARE MANAGEMENT PROGRESS NOTE SERVICE DATE: 08/14/2020 SERVICE TIME: 1:45 PM LOS: 1 day Spoke with pt at the bedside. Therapy recs SNF. Pt would like SNF- [facility]. They are able to accept pt. No bed available until Monday. MMO Waiver- per SNF. Pt is agreeable to w/c transport at d/c. CM to follow. SIGNATURE: Cindy Montes RN PATIENT NAME: Bryce Rodriguez DATE: August 14, 2020 TIME: 1:44 PM PAGER/CONTACT #: [phone] [facility] 08-13-2020 Note HNO ID: [id number] Author: Fernando Guidry Service: Hospital Medicine Author Type: Physician Type: Progress Notes Filed: 08/13/2020 5:37 PM Note Text: INPATIENT PROGRESS NOTE CHIEF COMPLAINT: syncope INTERVAL HPI: no new complaints. Feels very tired Daughter at bedside. Pt had syncopal event while trying to work with PT at rehab facility. Denies CP/SOB/palpitations prior to episode. Recent NSTEMI with stent placement. Also noted to have LAD occlusion 100% that was unable to be stented. PHYSICAL EXAM: BP 103/56 Pulse 61 Temp (Src) 98.2 (Oral) Resp 16 Ht 5' 3 (1.60m) Wt 119 lb (54.0kg) SpO2 96% BMI 21.09 kg/(m2). O2 Therapy: Room Air GENERAL: Alert, no distress, cooperative LUNGS: Lungs clear to auscultation, Good diaphragmatic excursion CARDIAC: Normal S1 and S2; no rubs, murmurs, or gallops ABDOMEN: Abdomen soft, non-tender, BS normal, No masses or organomegaly EXTREMITIES: no edema DATA: Diagnostic tests reviewed for today's visit: CBC, Coags, BMP, Mg, Phos Recent Labs 08/12/20 2138 WBC 7.07 HB 11.8* HCT 35.5* PLT 291 INR 1.1 APTT 27.1 NA 141 K 3.8 CHLOR 110* CO2 22 BUN 15 CREAT 0.63* GLUC 92 CA 8.4* MG 2.0 Assessment/Plan # syncope- unclear etio. orthos neg. Suspect arrythmia related. Seen by cardiology.recommend event monitor at DC No witnessed seizure like activity No focal neuro deficits # CAD s/p PCI-c/w ASA> also added plavix/BB. Seen by CTS. No plans for surgery. # P afib- rate controlled. C/w eliquis. on amio # h/o RA_ on methotrexate/sulfasalazine # severe protein calorie malnutrition PT/OT eval for DC planning SIGNATURE: Fernando Guidry MD PATIENT NAME: Bryce Rodriguez DATE: August 13, 2020 TIME: 5:28 PM PAGER: [facility] 08-13-2020 Note HNO ID: [id number] Author: Sara (Rn) ELROY Edge Service: Care Management Author Type: Registered Nurse Type: Care Mgt Initial Assessment Filed: 08/13/2020 3:19 PM Note Text: CARE MANAGEMENT: ASSESSMENT AND DISCHARGE PLAN SERVICE DATE: August 13, 2020 SERVICE TIME: 3:14 PM PRIMARY CARE PHYSICIAN: Gloria Hazel MD ADMISSION STATUS: Observation Needs Prior to Discharge: OT/PT Evaluation;Discharge Prescriptions;To Be Determined;Facility or Agency Choices MEDICAL: MMO MEDADVANTAGE 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 Last discharge within 30 days: No Advance Directive: Current Advance Directive: Health Care Power of Middleware Engineer In Chart: No High Lift Operator Attempted to Assist with AD Completion: Yes Action: Education Provided Health LiteracyHow often do you need to have someone help you when you read instructions, pamphlets, or other written material from your doctor or pharmacy? : 1 - Never How confident are you filling out medical forms by yourself?: 2 - Quite a bit If Patient scores > 3 on either question, the following interventions were put into place:: Patient did not score > 3 on either question. Baseline Mental Status Prior to this Illness what was the patient's Baseline Mental Status?: Alert AND Oriented Prior to this illness, has anyone described the patient having any of the following behaviors?: Not Applicable Relationship of the informant to the patient:: Self Functional Status: Independent Does Patient Currently Receive Any Community Services or Home Care?: Home Health Care Agency Equipment Prior to Admission: Walker;Cane Has the Patient Been in a Correction Facility in the Past 30 days?: No SOCIAL: Living Arrangements: Home Lives With: Alone Financial Resources: Retired Primary Contact: Extended Emergency Contact Information Primary Emergency Contact: Melanie Hanna Mobile Relation: Daughter Supportive Patient Contact:: Yes Contact Resources: Family Family Name/Phone: Melanie (dtr) [phone] Caregiver AssessmentCaregiver is ready, willing and able to meet the patient's needs as recommended by the inter-professional team:: No Caregiver needed Does the patient have an acute stroke diagnosis, or has the patient had a stroke during this admission?: No Patient's transition needs and plan for meeting these needs: SNF Patient's perception of need for this admission: syncopal event Medication Adherance I am convinced of the importance of my prescription medication: 0 - Agree Completely I worry that my prescription medication will do more harm than good to me : 0 - Disagree Completely I feel financially burdened by my [id number] expenses for my prescription medication:: 0 - Disagree Mostly Risk Score: 0 Patient is categorized as: Low risk < 2 Are you interested in bedside delivery of your medications? No Is Patient Psychosocially Complex?: No ASSESSMENT AND PLAN: Medical Needs: Medical Needs: Two or more chronic diseases;Fall risk or frequent falls Psychosocial Needs: Psychosocial Needs: None FREEDOM OF CHOICE EXPLAINED: [place] of Choice Given: No Reason Not Given: No placements necessary POTENTIAL TRANSITION PLANS Correction Facility/Intermediate Care Facility From home alone. 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 Has walker and cane. (+) [facility]CP[facility] and then discharged home with [facility]. Will need PT/OT evals as anticipate may need SNF at discharge. If SNF recommended patient wants referral to [facility]. SIGNATURE: Sara Edge RN PATIENT NAME: Bryce Rodriguez DATE: August 13, 2020 TIME: 3:14 PM PAGER/CONTACT #: [phone] [facility] 08-13-2020 Note HNO ID: [id number] Author: Sara (Elroy) ELROY Edge Service: Care Management Author Type: Registered Nurse Type: Care Mgt Progress Note Filed: 08/13/2020 3:04 PM Note Text: CARE MANAGEMENT PROGRESS NOTE SERVICE DATE: 08/13/2020 SERVICE TIME: 3:03 PM LOS: 1 day Observation letter given to patent on 08/13/2020 SIGNATURE: Sara Edge RN PATIENT NAME: Bryce Rodriguez DATE: August 13, 2020 TIME: 3:03 PM PAGER/CONTACT #: [phone] [facility] Rib pain on right side- Primary Chest pain, unspecified Closed fracture of multiple ribs of right side, initial encounter [facility] Diagnostic Procedure Only (Urgent) - Closed Specialty Diagnoses / Procedures Referred By Contac t Referred To Contact XR IMAGING Diagnoses Rib pain on right side Procedures XR RIBS/CHEST 3V AP RIB/OBLS/CXR RIGHT RADEX RIBS UNI W/POSTEROANT CH MINIMUM 3 VIEWS María Haas, DEBO.DIRECTOR OF GOVERNMENT SALES [id number] [place] [address] Xr Imaging Referral ID Status Reason Start Date Expiration Date V isits Requested Visits Authorized [id number] Closed Auto-Generate d Referral 12/27/2022 01/26/2024 1 1 [facility] Summary Purpose Family History No Family History Records FoundNo Family History Records FoundNo Family History Records Found Advance Directives No Advanced Directives Records FoundDocuments on File Type Date Recorded 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 Advance Directive(s) 08/13/2020 9:59 AM Advance Directive(s) 08/13/2020 3:13 PM Advance Directive(s) 08/12/2020 3:51 PM Documents on File Type Date Recorded 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 Advance Directive(s) 08/13/2020 3:13 PM Health Concerns Infection Onset Date Last Indicated Resolved Time COVID-19 Rule-Out 10/27/2021 10/27/2021 Infection Onset Date Last Indicated Resolved Time COVID-19 Rule-Out 10/27/2021 10/27/2021 10/28/2021 5:37 AM EDT COVID-19 Confirmed 10/27/2021 10/27/2021 Additional Source Comments (unrecognized sect ion and content) No Status Records FoundNo Status Records FoundNo Status Records Found INFORMATION SOURCE (unrecogn ized section and content) DATE CREATED AUTHOR AUTHOR'S ORGANIZ ATION 09/21/2020 [facility] DATE CREATED AUTHOR AUTHOR'S ORGANDARRICK ATION 12/28/2022 [facility] Source Comments (unrecognize d section and content) In the event this informatio n is protected by the Federal Confidentiality of Alcohol and Drug Abuse Patient Records regulations: The Federal rules restrict any use of the information to criminally investigate or prosecute any alcohol or drug abuse patient.[facility] the event this information is protected by the Federal Confidentiality of Alcohol and Drug Abuse Patient Records regulations: The Federal rules restrict any use of the information to criminally investigate or prosecute any alcohol or drug abuse patient.[facility] the event this information is protected by the Federal Confidentiality of Alcohol and Drug Abuse Patient Records regulations: The Federal rules restrict any use of the information to criminally investigate or prosecute any alcohol or drug abuse patient.[facility] Reason for Visit (unrecogniz ed section and content) Reason Comments Results COVID+ Reason Comments Rib Injury right side rib pain and bruising with wheezing after fall x days Care Teams (unrecognized sec tion and content) Back Tufter Relationship Specialty Start Date End Date Gloria Hazel [address] [place] [address] PCP - General 06/02/04 Back Tufter Relationship Specialty Start Date End Date Gloria Hazel [address] [place] [address] PCP - General 06/02/04 FOR RECORDS PERTAINING TO PATIENTS WHO ARE OR HAVE BEEN ENROLLED IN A CHEMICAL DEPENDENCY/SUBSTANCEABUSE PROGRAM, SOME INFORMATION MAY BE OMITTED. This clinical summary was aggregated from multiple sources. Caution should be exercised in using it in the provision of clinical care. This summary normalizes information from multiple sources, and as a consequence, information in this document may materially change the coding, format and clinical context of patient data. In addition, data may be omitted in some cases. CLINICAL DECISIONS SHOULD BE BASED ON THE PRIMARY CLINICAL RECORDS. [facility]. provides no warranty or guarantee of the accuracy or completeness of information in this document.
[2023-05-26 15:49] VITALS: BP 97/51; PULSE 61; RESP 16; TEMP 37.2; O2SAT 94
== END 2023-05-26 14:32 | disposition home or self-care (01) ==
LOC: MEDOUTP 14:31
PROVIDERS: PCP Family Medicine; Referring Provider Internal Medicine Rheumatology; Visit Provider Internal Medicine Rheumatology
DX: M05.79 Rheumatoid arthritis with rheumatoid factor of multiple sites without organ or systems involvement (principal)
CPT/HCPCS: 96365; J7050; A4216; J1602

== ENCOUNTER 2023-06-01 06:53 | Inpatient (IN) | payer MEDICARE, SELFPAY ==
[2023-06-01] VITALS (8 sets, daily range): BP systolic 129–141; BP diastolic 66–78; PULSE 70–83; RESP 18–20; TEMP 36.7–37.2; O2SAT 84–97; BMI 27.8
--- NOTE | 2023-06-01 07:24 | EX.ED.DYSGE1 ---
HPI History of Present Illness Chief Complaint: Fall Informant: patient Narrative Narrative: Patient is an 82-year-old male with history of rheumatoid arthritis (on methotrexate), coronary artery disease, proximal A-fib (on Xarelto and amiodarone) as well as BPH presenting for generalized weakness and a fall. Patient states that he woke up around 08/30/1927 this morning and went to use restroom. His legs gave out on him and he landed on his buttocks. He denies any major injuries however he was too weak to get up. He states he laid on the ground for about 30 minutes and then triggered his life alert. He was brought to the ER. Denies any pain to states he feels very weak. He notes yesterday he started develop a sore throat and now has some mild nasal congestion, chills and had dry heaves last night. Denies any change in urination but notes his chronic nocturnal urinary frequency. Denies any black or blood in his stool. Denies any change in his bowel habits. Denies abdominal pain, SOB, cough or chest pain. Denies any fever. No other complaints or concerns at this time. States he lives home alone. His main complaint is he feels very weak. He has chronic low back pain which is unchanged at this time. [facility] Medical History Anemia Atherosclerotic heart disease of [place] coronary artery without angina pectoris Atrial fibrillation BPH (benign prostatic hyperplasia) Chronic edema Coronary artery disease Former smoker GERD (gastroesophageal reflux disease) History of heart attack History of stress test Lumbar spinal stenosis PAT (paroxysmal atrial tachycardia) Rheumatoid arthritis Secondary adrenal insufficiency SVT (supraventricular tachycardia) Vitamin D deficiency Wears glasses Home Medications tamsulosin 0.4 mg capsule 0.4 mg PO DAILY@1800 Retention 07/18/20 [History Last Taken 01/05/23] finasteride 1 mg tablet 5 mg PO DAILY prostate 12/30/20 [History Last Taken 01/06/23] multivitamin (Daily Multi-Vitamin tablet) 1 tab PO DAILY Check with primary doctor 01/01/21 [History Last Taken 01/06/23] mirtazapine 15 mg tablet 15 mg PO QHS sleep 01/10/22 [History Last Taken 01/05/23] golimumab 12.5 mg/mL intravenous solution (Simponi ARIA) 12.5 mg IV .[id number] injection 05/31/22 [History Last Taken Unknown] atorvastatin 40 mg tablet (Lipitor) 40 mg PO QHS Cholesterol #90 tabs 10/07/22 [Rx Last Taken 01/05/23] gabapentin 300 mg capsule 300 mg PO TID PRN PRN NERVE PAIN 10/20/22 [History Last Taken 10/20/22] amiodarone 200 mg tablet 200 mg PO DAILY heart rate #90 tabs 10/28/22 [Rx Last Taken 01/06/23] spironolactone 25 mg tablet 25 mg PO DAILY water pill #30 tabs 11/14/22 [Rx Last Taken 01/06/23] trazodone 100 mg tablet 100 mg PO QHS Check with primary doctor 11/14/22 [History Last Taken 01/05/23] prednisone 10 mg tablet 10 mg PO DAILY PRN RA FLARE UP 01/04/23 [History Last Taken Unknown] ergocalciferol (vitamin D2) 1,250 mcg (50,000 unit) capsule (Vitamin D2) 1,250 mcg PO Q7D supplememt #0 caps 01/06/23 [Rx Last Taken 01/05/23] acetaminophen 500 mg tablet 1,000 mg (2 x 500 mg) PO Q8 #0 tabs 01/24/23 [Rx Last Taken Unknown] arginine 7 gram-glutam 7 gram-CaHMB 1.5 [id number]-min oral pwd pkt (Tian (with collagen)) 1 packet PO BIDCM 30 days #60 ea 01/24/23 [Rx Last Taken Unknown] baclofen 10 mg tablet 10 mg PO TID 30 days #90 tabs 01/24/23 [Rx Last Taken Unknown] furosemide 40 mg tablet 40 mg PO DAILY 30 days #30 tabs 01/24/23 [Rx Last Taken Unknown] levofloxacin 750 mg tablet 750 mg PO DAILY@0600 4 days #4 tabs 01/24/23 [Rx Last Taken Unknown] lidocaine 5 % topical patch 1 patch topical DAILY 30 days #30 ea 01/24/23 [Rx Last Taken Unknown] polysaccharide iron complex 150 mg iron capsule (Ferrex) 150 mg PO DAILY 30 days #30 caps 01/24/23 [Rx Last Taken Unknown] rivaroxaban 15 mg tablet (Xarelto) 15 mg PO DINNER 30 days #30 tabs 01/24/23 [Rx Last Taken Unknown] sennosides 8.6 mg-docusate sodium 50 mg tablet (Stool Softener-Stimulant Laxative) 2 tab PO BID 30 days #120 tabs 01/24/23 [Rx Last Taken Unknown] oxycodone 5 mg tablet 5 mg PO Q4H PRN pain 3 days #18 tabs 01/27/23 [Rx Last Taken Unknown] denosumab 60 mg/mL subcutaneous syringe (Prolia) 60 mg subcut [id number] #1 mL 03/10/23 [Rx Last Taken Unknown] prednisone 1 mg tablet 1 mg PO DAILY #100 tabs 03/10/23 [Rx Last Taken Unknown] prednisone 2.5 mg tablet 2.5 mg PO DAILY #21 tabs 03/10/23 [Rx Last Taken Unknown] Allergy/AdvReac Type Severity Reaction Status Date / Time No Known Allergies Allergy Verified 06/01/23 06:54 Family History Father CVA (cerebral vascular accident) Brother CAD (coronary artery disease) CABG X 3 Mother CVA (cerebral vascular accident) Grandfather Cancer prostate Surgical History H/O colonoscopy H/O umbilical hernia repair History of cardiac catheterization History of coronary artery stent placement (08/06/20) History of coronary artery stent placement History of lumbar surgery Hx of colectomy Hx of laminectomy Hx of transurethral resection of prostate S/P appendectomy S/P cataract surgery S/P hemorrhoidectomy S/P inguinal hernia repair S/P laparoscopic cholecystectomy S/P left colectomy S/P rotator cuff repair S/P vasectomy Social History household members: none Smoking Status: Former smoker how long ago did patient quit smokin years ago alcohol intake: never substance use type: does not use diet: low salt caffeine: Yes Type: coffee Number of servings: 4 ROS ROS ED Constitutional Constitutional ED: Reports chills; Denies fever(s) Eyes Eyes: Denies change in vision ENT ENT ED: Reports sore throat and other Details: nasal congestion Cardiovascular Cardiovascular: Denies chest pain or palpitations Respiratory/Chest Respiratory/Chest: Denies cough or dyspnea Gastrointestinal Gastrointestinal: Reports nausea; Denies abdominal pain, constipation or vomiting Genitourinary Genitourinary ED: Reports urinary frequency; Denies dysuria or hematuria Musculoskeletal Musculoskeletal: Reports arthralgias and back pain Integumentary Denies rash Neurologic Neurologic: Reports weakness; Denies headache(s) or paresthesias Psychiatric Psychiatric: Denies anxiety Hematologic/Lymphatic Hematologic/Lymphatic: Reports easy bleeding and easy bruising EXAM Physical Exam Const Vital Signs: 06/01/23 06:54 06/01/23 06:54 06/01/23 07:44 Temperature 98.9 F Temperature Source Temporal Pulse Rate 83 Respiratory Rate 19 H Respiratory Effort Normal Non-Labored Respiratory Depth Normal Respiratory Pattern Normal Blood Pressure 131/70 H Blood Pressure Mean 90 Pulse Ox 94 84 Oxygen Delivery Method Room Air Room Air Nasal Cannula Oxygen Flow Rate (L/min) 2 Positive well nourished and well developed General Appearance ED: well developed and NAD HEENT Reports dry mucous membranes HEENT Narrative: mild nasal congestion present Negative for trauma Mouth ED: Yes dry mucous membranes Mouth: dry mucous membranes Eyes PERRL Neck supple and no JVD Chest Wall inspection of chest normal and palpation of chest normal Resp normal respiratory effort and clear to auscultation bilaterally Cardio regular rate and regular rhythm GI normal to inspection, nondistended, normoactive bowel sounds and non-tender Back/Spine no CVA tenderness Thoracic Spine / Upper Back: Negative for thoracic spinal tenderness Lumbar Spine / Lower Back: Negative for lumbar spinal tenderness Extremity normal to inspection Extremity Narrative: Chronic appearing lower extremity edema General Extremety ED: Yes edema General Extremity: edema Neuro oriented x3 Sensorium / Orientation: alert Motor Exam: general weakness Psych mental status grossly normal Skin no rashes or lesions noted and no wounds MDM MDM MDM Narrative Medical decision making narrative: Evaluated for generalized weakness and fall. He appears nontoxic in no acute distress. Concern for infectious etiology after the cause of his weakness and subsequent fall. Low concern for major traumatic injury at this time. Vital signs are normal. Will also screen for cardiac cause of his weakness or major electrolyte derangement/dehydration. Anticoagulated on Xarelto so low suspicion for pulmonary emboli. Patient given IV fluids. Does have mild desaturation. Respiratory documented that he went down to 84% on room air was placed on 2 L. He responded nicely to this. We tried him off oxygen at rest and he still went down to 89%. He is found to be COVID-positive. Workup otherwise largely unremarkable. Urine likely contaminant but will send for culture as does have 2+ bacteria. 1 view chest x-ray viewed by myself as well as radiology shows chronic changes with no acute infiltrative process. Given his generalized weakness, debility, positive COVID and mild hypoxia will be admitted for further treatment observation in the hospital. Patient is agreeable. Patient also at high risk as he is immunosuppressed on chronic steroids and Biologics for his RA. Case is discussed with admitting physician, Dr. Wheeler. Lab Data Attestation: I reviewed the patient's lab results. Labs: Laboratory Results - last 24 hr 06/01/23 06/01/23 07:39 07:54 WBC 5.0 RBC 3.95 L Hgb 12.8 L Hct 38.7 L MCV 98.0 H MCH 32.4 H MCHC 33.1 RDW Std Deviation 58.1 H RDW Coeff of Jaciel 15.9 H Plt Count 164 MPV 9.6 Immature Gran % (Auto) 0.200 Neut % (Auto) 72.4 H Lymph % (Auto) 10.5 L [place] % (Auto) 14.7 H Eos % (Auto) 1.6 Baso % (Auto) 0.6 Absolute Neuts (auto) 3.7 Absolute Lymphs (auto) 0.53 L Nucleated RBC % 0 Differential Comment COMMENT Sodium 139 Potassium 4.0 Chloride 103 Carbon Dioxide 30.0 Anion Gap 6 BUN 14 Creatinine 0.92 Estim Creat Clear Calc 47.37 Est GFR (MDRD) Af Amer 102 Est GFR (MDRD) Non-Af 85 BUN/Creatinine Ratio 15.3 Glucose 111 H Calcium 8.5 Total Bilirubin 0.40 AST 25 ALT 26 Alkaline Phosphatase 67 Total Creatine Kinase 184 Troponin I High Sens 20 Total Protein 6.9 Albumin 3.4 Globulin 3.5 Albumin/Globulin Ratio 1.0 Lipase 12 L Urine Color YELLOW Urine Clarity Clear Urine pH 7.0 Ur Specific [place] 1.010 Urine Protein 15 H Urine Glucose (UA) NEGATIVE Urine Ketones 50 Urine Occult Blood Negative Urine Nitrite Negative Urine Bilirubin Negative Urine Urobilinogen Normal Ur Leukocyte Esterase Negative Urine RBC 0 SEEN Urine WBC 5-10 SEEN Ur Squamous Epith Cells 5-10 SEEN Urine Bacteria 2+ Urine Mucus 0 SEEN Radiography Chest X-Ray - ED: 1 View, Read by Radiologist, No Acute Disease and Chronic Changes Diagnostic Testing: Clinical Impression(s) from Imaging Studies Chest X-Ray 06/01/23 08:00 IMPRESSION: Low lung volumes with bibasilar atelectasis and scarring. Electronically Signed: Danielle Diaz MD at 8:38 EST Reading Location ID and State: [facility] / [place] Tel , Service support , Rhythm Strip Rhythm Strip: A-fib Rate: 84 Ectopy: None EKG Initial EKG: Attestation: I personally reviewed and interpreted this EKG as follows: Interpretation: Atrial Fibrillation Comments: Atrial fibrillation at a rate of 84 bpm Grossly normal axis No significant see abnormalities however there is a significant amount of artifact making further interpretation difficult Discharge Plan Triage Chief Complaint: Fall ED Provider: Halle Dale Dx/Rx/DC Orders Clinical Impression: COVID-19, Weakness, Hypoxia, 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 Prescriptions: No Action mirtazapine 15 mg tablet 15 mg PO QHS multivitamin [Daily Multi-Vitamin] Tablet 1 tab PO DAILY finasteride 1 mg tablet 5 mg PO DAILY spironolactone 25 mg tablet 25 mg PO DAILY Qty: 30 12RF prednisone 1 mg tablet 1 mg PO DAILY Qty: 100 1RF Rx Instructions: 3.5 mg daily for 3 weeks (with 2.5 mg daily) then 3 mg daily prednisone 2.5 mg tablet 2.5 mg PO DAILY Qty: 21 0RF Rx Instructions: 3.5 mg daily for 3 weeks (with 1 mg tablet) Prolia 60 mg/mL syringe 60 mg subcut [id number] Qty: 1 1RF tamsulosin 0.4 MG capsule 0.4 mg PO DAILY@1800 trazodone 100 mg tablet 100 mg PO QHS Simponi ARIA 12.5 mg/mL Solution 12.5 mg IV [id number] Patient Comments: PT GOES TO GET INJECTION EVERY 8 WEEKS CAN NOT REMEMBER LAST SHOT NEXT DUE IS IN OCTOBER gabapentin 300 mg capsule 300 mg PO TID PRN PRN (Reason: NERVE PAIN) Patient Comments: Take 1 (one) Capsule by mouth three times daily, as needed prednisone 10 mg tablet 10 mg PO DAILY PRN (Reason: RA FLARE UP) Rx Instructions: As instructed ergocalciferol (vitamin D2) [Vitamin D2] 1,250 mcg (50,000 unit) Capsule 1,250 mcg PO Q7D Qty: 0 0RF furosemide 40 mg Tablet 40 mg PO DAILY 30 Days Qty: 30 0RF polysaccharide iron complex [Ferrex 150] 150 mg iron Capsule 150 mg PO DAILY 30 Days Qty: 30 0RF sennosides-docusate sodium [Stool Softener-Stimulant Laxat] 8.6-50 mg Tablet 2 tab PO BID 30 Days Qty: 120 0RF acetaminophen 500 mg Tablet 1,000 mg PO Q8 Qty: 0 0RF baclofen 10 mg Tablet 10 mg PO TID 30 Days Qty: 90 0RF lidocaine 5 % Adhesive Patch,Medicated 1 patch topical DAILY 30 Days Qty: 30 0RF Protocol: *Topical Application Instructions APPLICATION INSTRUCTIONS: lumbar spine in painful region levofloxacin 750 mg Tablet 750 mg PO DAILY@0600 4 Days Qty: 4 0RF Xarelto 15 mg Tablet 15 mg PO DINNER 30 Days Qty: 30 0RF Tian (with collagen) 7-7-1.5 gram Powder In Packet 1 packet PO BIDCM 30 Days Qty: 60 0RF oxycodone 5 mg tablet 5 mg PO Q4H PRN (Reason: pain) 3 Days Qty: 18 0RF atorvastatin [Lipitor] 40 mg tablet 40 mg PO QHS Qty: 90 3RF amiodarone 200 mg tablet 200 mg PO DAILY Qty: 90 3RF Primary Care Provider: Gloria Hazel Referrals: Gloria Hazel MD [Primary Care Provider] - Disposition Disposition: Acute Care [facility]
--- OUTSIDE RECORDS SUMMARY | 2023-06-01 07:27 | XMS RPT_ITS | CCD ---
Author Name Unknown Address [address] [place] [address] Organization [facility] Care Team Providers Care Creative Services Writer Name Role Phone Gloria Hazel Primary Care [...] 17:56-0400 Body temperature 97.81 [degF] María Ayan GRAPHIC DESIGN MANAGER.SOLAR POOL HEATING INSTALLER Work Phone: [facility] 12-27-2022 17:56-0400 Diastolic blood pressure 66 mm[Hg] María Ayan GRAPHIC DESIGN MANAGER.SOLAR POOL HEATING INSTALLER Work Phone: [facility] 12-27-2022 17:56-0400 Heart rate 72 /min María Ayan GRAPHIC DESIGN MANAGER.SOLAR POOL HEATING INSTALLER Work Phone: [facility] 12-27-2022 17:56-0400 Respiratory rate 16 /min María Ayan GRAPHIC DESIGN MANAGER.SOLAR POOL HEATING INSTALLER Work Phone: [facility] 12-27-2022 17:56-0400 SaO2% (BldA) [Mass fraction] 95 % María Ayan GRAPHIC DESIGN MANAGER.SOLAR POOL HEATING INSTALLER Work Phone: [facility] 12-27-2022 17:56-0400 Systolic blood pressure 102 mm[Hg] María Ayan GRAPHIC DESIGN MANAGER.SOLAR POOL HEATING INSTALLER Work Phone: [facility] 10-27-2021 14:52-0400 Body temperature 99.3 [degF] Lucero Mcwilliams GRAPHIC DESIGN MANAGER.SOLAR POOL HEATING INSTALLER Work Phone: [facility] 10-27-2021 14:52-0400 Body weight 67.5 kg Lucero Mcwilliams GRAPHIC DESIGN MANAGER.SOLAR POOL HEATING INSTALLER Work Phone: [facility] 10-27-2021 14:52-0400 Diastolic blood pressure 70 mm[Hg] Lucero Mcwilliams GRAPHIC DESIGN MANAGER.SOLAR POOL HEATING INSTALLER Work Phone: [facility] 10-27-2021 14:52-0400 Heart rate 76 /min Lucero Mcwilliams GRAPHIC DESIGN MANAGER.SOLAR POOL HEATING INSTALLER Work Phone: [facility] 10-27-2021 14:52-0400 Respiratory rate 18 /min Lucero Mcwilliams GRAPHIC DESIGN MANAGER.SOLAR POOL HEATING INSTALLER Work Phone: [facility] 10-27-2021 14:52-0400 SaO2% (BldA) [Mass fraction] 97 % Lucero Mcwilliams APRN.CNP Work Phone: [facility] 10-27-2021 14:52-0400 Systolic blood pressure 122 mm[Hg] Lucero Mcwilliams APRN.CNP Work Phone: [facility] Encounters Encounter Date Encounter Type Care Provider Facility Start: 12-27-2022 End: 12-27-2022 ambulatory GLORIA KODAK HAZEL Facility:[facility] Start: 12-27-2022 End: 12-27-2022 Patient encounter procedure María Ayan EDMONDSON.VERITO Work Phone: [facility] Plan of Treatment Date Care Activity Detail Author Start: 08-17-2023 DIABETES SCREEN DIABETES SCREEN [facility] Start: 01-27-2023 Influenza vaccination INFLUENZA (#1) [facility] Start: 05-29-2022 ADVANCE DIRECTIVE DISCUSSION ADVANCE DIRECTIVE DISCUSSION [facility] Start: 05-29-2022 DEPRESSION ASSESSMENT DEPRESSION ASSESSMENT [facility] Start: 10-27-2021 End: 11-10-2021 Influenza virus A and B RNA and SARS-CoV-2 (COVID-19) N gene panel - Respiratory specimen by JUDI with probe detection COVID WITH FLUA+B, ROUTINE Microbiology Routine URI, acute Viral illness Expected: 10/27/2021, Expires: 11/10/2021 [facility] Work Phone: Payers Date Payer Category Payer Medicare MMO MEDICARE MMO MEDADVANTAGE O [id number] 2020-Present [phone] [address] [place] [address] O [id number] 2020 Medicare MMO MEDICARE MMO MEDADVANTAGE O [id number] 2020-Present [phone] [address] [place] [address] [facility] [id number] 2020 Unknown [id number] Social History Date Type Detail Facility Start: 04-24-2016 Tobacco smoking stat us NHIS Ex-smoker [facility] Start: 04-24-2016 Tobacco use and exposure Smokeless tobacco non-user [facility] Start: 10-27-2021 End: 12-27-2022 Alcohol intake Not Asked [facility] Start: 1940 Sex Assigned At Not on file [facility] Start: 10-17-2021 End: 10-27-2021 Exposure to SARS-CoV-2 (event) Not sure [facility] Work Phone: History of tobacco use Current smoker [facility] Start: 03-02-2021 End: 12-27-2022 History of Social function [facility] Start: 03-02-2021 End: 12-27-2022 Tobacco use panel [facility] National Score (1-100), lower number is lower risk Not on file [facility] Clinical Notes 08-13-2020 to 12-27-2022 Patient InstructionsMaría Haas, DEBO.SOLAR POOL HEATING INSTALLER - 12/27/2022 6:16 PM EDTTelephone Encounter - Faustina Sheldon LPN - 10/28/2021 10:02 AM EDTTelephone Encounter - Tonio Johnson MD - 10/28/2021 7:54 AM EDT Note Date & Type Note Facility 12-27-2022 Note HNO ID: [id number] Author: Cami Nick RT(R) Service: Radiology Author [...] Nick, RT(R) December 27, 2022 6:22 PM [facility] 12-27-2022 Note HNO ID: [id number] Author: María Haas APRN.SOLAR POOL HEATING INSTALLER Service: ? Author Type: Nurse Practitioner Type: Progress Notes Filed: 12/27/2022 7:34 PM Note Text: Subjective The history is provided by the patient and a relative. No drying frame operator was used. HPI Bryce Rodriguez is a [...] have confirmed and edited as necessary, the [facility] Review of Systems Constitutional: Negative for chills [...] warranting prompt ER evaluation. María Haas APRN.CNP [facility] 12-27-2022 Instructions María Haas APRN.CNP - 12/27/2022 7:08 PM EDT Encourage deep breaths Tylenol (generic acetaminophen) 500 mg-2 tabs every 8 hrs as needed for pain Ice Heat Follow up in one week with Dr. Hazel * Seek medical care immediately, call 911, go to ER if you have chest pain, difficulty breathing, shortness of breath, inability to swallow. documented in this encounter [facility] 12-27-2022 History of Present illness Narrative Images from the original note were not included. Subjective The history is provided by the patient and a relative. No drying frame operator was used. HPI Bryce Rodriguez is a [...] have confirmed and edited as necessary, the [facility] Review of Systems Constitutional: Negative for chills [...] María Haas APRN.VERITO documented in this encounter [facility] 10-28-2021 Miscellaneous Notes Phone call placed patient [...] ER if severe. documented in this encounter [facility] 10-27-2021 Instructions Lucero Mcwilliams APRN.VERITO - 10/27/2021 [...] follow-ups on file. documented in this encounter [facility] 10-27-2021 History of Present illness Narrative This note was created using Digital Solid State Propulsionriter. Subjective Bryce Rodriguez is a 80 year old male. 80 year old male with PMH irregular heart beat, hyperlipidemia, RA and cardiac stents (on Xarelto) presents requesting COVID testing. Acute onset Monday night +cough +nasal congestion +fever + chills +body aches + malaise Denies N/V/D Denies skin rash or lesions. States that he has had COVID vaccine. He works at [employer], states his last day was October 09. Unknown if he was in direct contact with ill persons. Denies using homeopathic or OTC medications EDI COORDINATOR. Denies tobacco usage. The history is provided by the patient. No drying frame operator was used. URI He complains of cough. [...] WITH FLUA+B, ROUTINE-obtained and pending Lucero Mcwilliams APRN.SOLAR POOL HEATING INSTALLER documented in this encounter [facility] 08-17-2020 Note HNO ID: [id number] Author: Sara (Rn) ELROY Edge Service: Care Management Author Type: Registered Nurse Type: Care Mgt Progress Note Filed: 08/17/2020 2:43 PM Note Text: CARE MANAGEMENT DISCHARGE NOTE SERVICE DATE: 08/17/2020 SERVICE TIME: 2:28 PM LOS: 1 day Admission Date: 08/12/2020 DISCHARGE ARRANGEMENT (list agency and phone number) Discharge Arrangement: residential facility Was an expedited discharge program used?: Yes Type: (MMO Waiver) Provider Name: Jerrod GALVEZ CAREGIVER ASSESSMENT: HANDOFF COMMUNICATION: Handoff to: Primary Care Physician Primary Care Physician Name/Phone: Gloria Hazel MD TRANSPORTATION ARRANGEMENTS: Transportation Arrangements: Ambulance/[facility] Agency and Phone #:: [facility] ( [facility] ) [phone] / [phone] Date of Trip: 08/17/20 Time of Trip: 1500 Type of Service: Wheelchair Is Patient Medicaid Pending?: No Discussion of financial coverage occurred with: Patient Senior Sales Operations Manager Location: [facility] Destination: [facility] Financial Care Management Responsibility: None ADDITIONAL CONTACT RESOURCES: None Patient has been discharged to [facility]. [facility] is transporting patient via WC at 15:00. Patient and his dtr Melanie have been notified. RN aware of discharge time. Orders have been faxed and facility notified. SIGNATURE: Sara Edge RN PATIENT NAME: Bryce Rodriguez DATE: August 17, 2020 TIME: 2:28 PM PAGER/CONTACT #: [phone] [facility] 08-17-2020 Note HNO ID: [id number] Author: Sara Lee) ELROY Edge Service: Care Management Author Type: Registered Nurse Type: Care Mgt Progress Note Filed: 08/17/2020 10:48 AM Note Text: CARE MANAGEMENT PROGRESS NOTE SERVICE DATE: 08/17/2020 SERVICE TIME: 10:45 AM LOS: 1 day Epic notes reviewed. PT/OT evals recommending SNF at discharge and patient agreeable. Has been accepted at [facility]. Precert waivered and facility has bed available today. Covid test and requested updates sent. Anticipate discharge today. SIGNATURE: Sara Edge RN PATIENT NAME: Bryce Rodriguez DATE: August 17, 2020 TIME: 10:45 AM PAGER/CONTACT #: [phone] [facility] 08-17-2020 Note HNO ID: [id number] Author: Macrina Shea Service: Hospital Medicine Author [...] PMHx of HTN, BPH, CAD, Afib Recent [place], RA admit 08/12/20 for syncope 3/11/21 cardiac cath: CAD. Successful PCI on OM2 with GAGE. Unsuccessful PCI of AUTOMOBILE BODY WORKER of LAD Recommendation: he may need re attempt at PCI of AUTOMOBILE BODY WORKER of LAD or referral for ARELLANO to LAD Cardiology had evaluated him and recommended Holter monitor to assess for conduction deficits Cardovascular surgery had evaluated patient. Per Dr. yKree Gardner, Upon review of the catheterization, it appears that patient has a stent in the OM and AUTOMOBILE BODY WORKER of the LAD. He does have some [...] 110/59 No lightheadedness Plan: discharge to SNF -[facility] Medication and Non-Pharmacologic VTE Prophylaxis/Anticoagulants Anticoagulant AND [...] indicated (fl,oh) 08/12/202129 activity - mobilize patient (ut,id) VTE Prophylaxis: SIGNATURE: Macrina Shea DO PATIENT NAME: Bryce Rodriguez DATE: August 17, 2020 TIME: PAGER: [facility] 08-16-2020 Note HNO ID: [id number] Author: Macrina Shea Service: Hospital Medicine Author [...] PMHx of HTN, BPH, CAD, Afib Recent [place], RA admit 08/12/20 for syncope 08/06/20 cardiac cath: CAD. Successful PCI on OM2 with GAGE. Unsuccessful PCI of AUTOMOBILE BODY WORKER of LAD Recommendation: he may need re attempt at PCI of AUTOMOBILE BODY WORKER of LAD or referral for ARELLANO to LAD Cardiology had evaluated him and recommended Holter monitor to assess for conduction deficits Cardovascular surgery had evaluated patient. Per Dr. Kyree Gardner, Upon review of the catheterization, it appears that patient has a stent in the OM and AUTOMOBILE BODY WORKER of the LAD. He does have some [...] 08/12/202129 vte non-pharmacologic prophylaxis - none indicated (ut,oh) 08/12/202129 activity - mobilize patient (ut,id) VTE Prophylaxis: SIGNATURE: Macrina Shea DO PATIENT NAME: Bryce Rodriguez DATE: August 16, 2020 TIME: 12:19 PM PAGER: [facility] 08-15-2020 Note HNO ID: [id number] Author: Paul Tony Service: Hospital Medicine Author [...] for SNF [facility] and will Likely be on Monday. Medication [...] 08/12/202129 vte non-pharmacologic prophylaxis - none indicated (ut,id) 08/12/202129 activity - mobilize patient (ut,id) VTE Prophylaxis: VTE prophylaxis appropriate SIGNATURE: Paul Tony MD PATIENT NAME: Bryce Rodriguez DATE: August 15, 2020 TIME: 10:08 AM [facility] 08-15-2020 Note HNO ID: [id number] Author: Interface Note Service: ? Author Type: ? Type: Progress Notes Filed: 08/15/2020 3:06 AM Note Text: Epic Scheduled Downtime: 08/15/2020 1:00:00 AM to 08/15/2020 2:48:00 AM [facility] 08-14-2020 Note HNO ID: [id number] Author: Fernando Guidry Service: Hospital Medicine Author [...] PT/OT recommend SNF at DC Plan for [facility] but no bed available till Monday. Will need rpt COVID test ordered over weekend for discharge on monday ? SIGNATURE: Fernando Guidry MD PATIENT NAME: Bryce Rodriguez DATE: August 14, 2020 TIME: 2:55 PM PAGER: [facility] 08-14-2020 Note HNO ID: [id number] Author: Cindy CoronaRn) ELROY Montes Service: Care Management Author Type: Registered Nurse Type: Care Mgt Progress Note Filed: 08/14/2020 1:46 PM Note Text: CARE MANAGEMENT PROGRESS NOTE SERVICE DATE: 08/14/2020 SERVICE TIME: 1:45 PM LOS: 1 day Spoke with pt at the bedside. Therapy recs SNF. Pt would like SNF- [facility]. They are able to accept pt. No bed available until Monday. MMO Waiver- per SNF. Pt is agreeable to w/c transport at d/c. CM to follow. SIGNATURE: Cindy Montes RN PATIENT NAME: Bryce Rodriguez DATE: August 14, 2020 TIME: 1:44 PM PAGER/CONTACT #: [phone] [facility] 08-13-2020 Note HNO ID: [id number] Author: Fernando Guidry Service: Hospital Medicine Author [...] August 13, 2020 TIME: 5:28 PM PAGER: [facility] 08-13-2020 Note HNO ID: [id number] Author: Sara (Rn) ELROY Edge Service: Care Management Author Type: Registered Nurse Type: Care Mgt Initial Assessment Filed: 08/13/2020 3:19 PM Note Text: CARE MANAGEMENT: ASSESSMENT AND DISCHARGE PLAN SERVICE DATE: August 13, 2020 SERVICE TIME: 3:14 PM PRIMARY CARE PHYSICIAN: Gloria Hazel MD ADMISSION STATUS: Observation Needs Prior to Discharge: OT/PT Evaluation;Discharge Prescriptions;To Be Determined;Facility or Agency Choices MEDICAL: MMO MEDADVANTAGE O 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 Last discharge within 30 days: No Advance Directive: Current Advance Directive: Health Care Power of Dietary Service Aide In Chart: No Horticultural Technical Officer Attempted to Assist with AD Completion: Yes [...] Walker;Cane Has the Patient Been in a Long-Term Facility in the Past 30 days?: No SOCIAL: Living Arrangements: Home Lives With: Alone Financial Resources: Retired Primary Contact: Extended Emergency Contact Information Primary Emergency Contact: Melanie Hanna Mobile Relation: Daughter Supportive Patient Contact:: Yes Contact Resources: Family Family Name/Phone: Melanie (dtr) [phone] Caregiver AssessmentCaregiver is ready, willing and able [...] Completely I feel financially burdened by my zxn-[id number] expenses for my prescription medication:: 0 - Disagree Mostly Risk Score: 0 Patient is categorized as: Low risk < 2 Are you interested in bedside delivery of your medications? No Is Patient Psychosocially Complex?: No ASSESSMENT AND PLAN: Medical Needs: Medical Needs: Two or more chronic diseases;Fall risk or frequent falls Psychosocial Needs: Psychosocial Needs: None [place] OF CHOICE EXPLAINED: [place] of Choice Given: No Reason Not Given: No placements necessary POTENTIAL TRANSITION PLANS Long-Term Facility/Intermediate Care Facility From home alone. 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 Has walker and cane. (+) PCP. [facility]. Was recently at [facility] and then discharged home with [facility]. Will need PT/OT evals as anticipate may need SNF at discharge. If SNF recommended patient wants referral to [facility]. SIGNATURE: Sara Edge RN PATIENT NAME: Bryce Rodriguez DATE: August 13, 2020 TIME: 3:14 PM PAGER/CONTACT #: [phone] [facility] 08-13-2020 Note HNO ID: [id number] Author: Sara (Elroy) ELROY Edge Service: Care Management Author Type: Registered Nurse Type: Care Mgt Progress Note Filed: 08/13/2020 3:04 PM Note Text: CARE MANAGEMENT PROGRESS NOTE SERVICE DATE: 08/13/2020 SERVICE TIME: 3:03 PM LOS: 1 day Observation letter given to patent on 08/13/2020 SIGNATURE: Sara Edge RN PATIENT NAME: Bryce Rodriguez DATE: August 13, 2020 TIME: 3:03 PM PAGER/CONTACT #: [phone] [facility] Rib pain on right side- Primary Chest pain, unspecified Closed fracture of multiple ribs of right side, initial encounter [facility] Diagnostic Procedure Only (Urgent) - Closed Specialty Diagnoses / Procedures Referred By Contac t Referred To Contact XR IMAGING Diagnoses Rib pain on right side Procedures XR RIBS/CHEST 3V AP RIB/OBLS/CXR RIGHT RADEX RIBS UNI W/POSTEROANT CH MINIMUM 3 VIEWS María Haas, DEBO.SOLAR POOL HEATING INSTALLER [address] [place] [address] Xr Imaging Referral ID Status Reason Start Date Expiration Date V isits Requested Visits Authorized [id number] Closed Auto-Generate d Referral 12/27/2022 01/26/2024 1 1 [facility] Summary Purpose Family History No Family History Records FoundNo Family History Records FoundNo Family History Records Found Advance Directives No Advanced Directives Records FoundDocuments on File Type Date Recorded 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 Advance Directive(s) 08/13/2020 9:59 AM Advance Directive(s) 08/13/2020 3:13 PM Advance Directive(s) 08/12/2020 3:51 PM Documents on File Type Date Recorded 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 anation Advance Directive(s) 08/13/2020 3:13 PM [...] DATE CREATED AUTHOR AUTHOR'S ORGANIZ ATION 09/21/2020 [facility] DATE CREATED AUTHOR AUTHOR'S ORGANDARRICK ATION 12/28/2022 [facility] Source Comments (unrecognize d section and content) In the event this informatio n is protected by the Federal Confidentiality of Alcohol and Drug Abuse Patient Records regulations: The Federal rules restrict any use of the information to criminally investigate or prosecute any alcohol or drug abuse patient.[facility] the event this information is protected by the Federal Confidentiality of Alcohol and Drug Abuse Patient Records regulations: The Federal rules restrict any use of the information to criminally investigate or prosecute any alcohol or drug abuse patient.[facility] the event this information is protected by the Federal Confidentiality of Alcohol and Drug Abuse Patient Records regulations: The Federal rules restrict any use of the information to criminally investigate or prosecute any alcohol or drug abuse patient.[facility] Reason for Visit (unrecogniz ed section and content) Reason Comments Results COVID+ Reason Comments Rib Injury right side rib pain and bruising with wheezing after fall x days Care Teams (unrecognized sec tion and content) Creative Services Writer Relationship Specialty Start Date End Date Gloria Hazel [address] [place] [address] PCP - General 06/02/04 Creative Services Writer Relationship Specialty Start Date End Date Gloria Hazel [address] [place] [address] PCP - General 06/02/04 FOR RECORDS PERTAINING [...] BE BASED ON THE PRIMARY CLINICAL RECORDS. [facility]. provides no warranty or guarantee of the accuracy or completeness of information in this document.
[2023-06-01 07:50] LABS: Absolute Lymphocyte Count 0.53 X10^3/uL (0.83-4.51); Absolute Neutrophil Count 3.7 X10^3/uL (2.0-7.7); Basophil# 0.03 X10^3/uL; Basophil% 0.6 % (0-1); Eosinophil# 0.08 X10^3/uL; Eosinophils% 1.6 % (0-5); Hematocrit 38.7 % (40-54); Hemoglobin 12.8 g/dL (13.0-16.5); Lymphocyte # 0.53 X10^3/ul (0.83-4.51); Lymphocyte % 10.5 % (19-41); Mean Corp Hgb Conc 33.1 g/dL (32-36); Mean Corpuscular Hgb 32.4 pg (27.0-32.0); Mean Platelet Vol. 9.6 fl (6.2-12.0); Monocyte# 0.74 X10^3/uL; Monocyte% 14.7 % (0-10); NRBC Flagged by Analyzer 0 % (0-5); Neutrophil # 3.65 X10^3/uL (2.7-7.7); Neutrophil % 72.4 % (47-70); POSITIVE DIFFERENTIAL YES; Platelet Count 164 K/mm3 (150-450); RBC Distribution Width CV 15.9 % (11.6-14.6); RBC Distribution Width SD 58.1 fl (35.1-43.9); Red Blood Count 3.95 M/mm3 (4.6-6.2)
[2023-06-01 07:53] LABS: Differential Indicated SCAN CRITERIA MET
[2023-06-01 08:00] LABS: Mucous, Urine 0 SEEN /hpf (<or=2+); Red Blood Cells-Urine 0 SEEN /hpf (0-5)
--- NOTE | 2023-06-01 08:00 | RAD_ITS ---
HISTORY: weakness, cough. TECHNIQUE: XR Chest 1 View. COMPARISON: 01/23/2023. FINDINGS: CARDIOMEDIASTINAL BORDERS: Cardiac silhouette within normal limits in size. Mediastinal contour unremarkable. LUNGS: Low lung volumes with linear bibasilar opacities. PLEURA: No pleural effusion or pneumothorax seen. OSSEOUS STRUCTURES: Chronic compression fractures with vertebroplasty. Old left rib fracture. Surgical anchor in the right humeral head. RAD/Chest 1 View (Portable) IMPRESSION: Low lung volumes with bibasilar atelectasis and scarring. Electronically Signed: Danielle Diaz MD at 8:38 EST ,
[2023-06-01 08:09] LABS: AST(SGOT) 25 U/L (15-37); Alanine Aminotransfer ALT/SGPT 26 U/L (16-61); Albumin, Serum 3.4 g/dL (3.2-5.0); Alkaline Phosphatase 67 U/L (45-117); Anion Gap 6 (5-15); BUN 14 mg/dL (7-18); BUN/Creat Ratio 15.3 RATIO (10-20); Calcium,Total 8.5 mg/dL (8.5-10.1); Chloride 103 mmol/L (98-107); Creatinine, Serum 0.92 mg/dL (0.70-1.30); EST Glomerular Filtration Rate 85 mL/min (>60); Est Glom Filt Rate - Afr Amer 102 mL/min (>60); Estimated Creatinine Clearance 47.37 ml/min; Globulin 3.5 g/dL (2.2-4.2); Glucose 111 mg/dL (74-106); Lipase 12 U/L (13-75); Protein, Total 6.9 g/dL (6.4-8.2); Sodium Level 139 mmol/L (136-145); Troponin-I HS 20 pg/mL (3.0-78.0)
[2023-06-01 08:10] LABS: Color, Urine YELLOW (Yellow); Urine Clarity Clear (Clear)
[2023-06-01 08:14] LABS: CPK Total, Creatine Kinase 184 U/L (39-308)
[2023-06-01 08:15] LABS: Glucose, Dipstick NEGATIVE (Normal); Ketone-Dipstick 50 mg/dl (Negative); Urine Bilirubin Dipstick Negative (Negative)
[2023-06-01 08:16] LABS: Nitrite-Dipstick Negative (Negative); Occult Blood-Urine Negative /ul (Negative); Protein-Dipstick 15 mg/dl (Negative); Urine Urobilinogen Normal (Normal)
[2023-06-01 08:17] LABS: Leukocyte Esterase-Dipstick Negative /ul (Negative)
[2023-06-01 08:50] LABS: White Blood Cells 5-10 SEEN /hpf (0-5)
[2023-06-01 08:51] LABS: Bacteria 2+ /hpf (None Seen)
[2023-06-01 08:52] LABS: Squamous Epithelial Cells - UA 5-10 SEEN /hpf (0-5)
[2023-06-01] MEDS: Acetaminophen 325 MG Tablet 650 MG PO ×2 (09:26→15:06)
[2023-06-01] MEDS: 0.9% Normal Saline (500mL Bag) 500 ML 1000 ML IV (09:28)
--- NOTE | 2023-06-01 10:10 | PCM.HP.STD ---
HPI - General General Date of Admission: 06/01/23 Date of Service: 06/01/23 Chief Complaint: Generalized weakness/fall HPI Narrative BRYCE ANN, is a 82 M who presented to the emergency department at [facility] on 06/01/2023 with a chief complaint of generalized weakness and fall. The patient had reported that he was his normal self up until yesterday afternoon at which time he began having a sore throat and some nasal congestion. He then developed some generalized weakness, cough with intermittent production, myalgias, and mild headache. He has no known sick contacts. He fell around 430 this morning when he was getting up to use the restroom. He reported that his legs just gave out on him and landed on his buttocks. He denied injuries related to his fall but was too weak to get up. He laid on the ground for about 30 minutes and then was able to trigger his life alert and was brought to the emergency department by the squad. He lives at home alone. Vital signs on presentation showed temperature of 98.9, heart rate was 83, blood pressure is 131/70, respiratory rate was 19 and oxygen saturation was initially 94% on room air however he dropped to 84% on room air and was placed on 2 L nasal cannula with an oxygen saturation improving to 97%. His CBC shows a chronic stable anemia with a hemoglobin of 12.8 and no leukocytosis however he does have a mild left shift with a 72.4% neutrophilia and a 14.7% monocytosis. His chemistry panel was overall unremarkable. His UA is unremarkable for signs of infection. His lipase was 12. His chest x-ray showed low lung volumes with basilar atelectasis and scarring but no acute findings. Urine culture was sent in the emergency department and his RSV/COVID/flu PCR was positive for COVID-19. [facility] Medical History Anemia Atherosclerotic heart disease of [place] coronary artery without angina pectoris Atrial fibrillation BPH (benign prostatic hyperplasia) Chronic edema Coronary artery disease Former smoker GERD (gastroesophageal reflux disease) History of heart attack History of stress test Lumbar spinal stenosis PAT (paroxysmal atrial tachycardia) Rheumatoid arthritis Secondary adrenal insufficiency SVT (supraventricular tachycardia) Vitamin D deficiency Wears glasses Home Medications tamsulosin 0.4 mg capsule 0.4 mg PO DAILY@1800 Retention 07/18/20 [History Last Taken 05/31/23] finasteride 1 mg tablet 5 mg PO DAILY prostate 12/30/20 [History Last Taken 05/31/23] multivitamin (Daily Multi-Vitamin tablet) 1 tab PO DAILY Check with primary doctor 01/01/21 [History Last Taken 05/31/23] golimumab 12.5 mg/mL intravenous solution (Simponi ARIA) 12.5 mg IV .[id number] injection 05/31/22 [History Last Taken 05/29/23] atorvastatin 40 mg tablet (Lipitor) 40 mg PO QHS Cholesterol #90 tabs 10/07/22 [Rx Last Taken 05/31/23] gabapentin 300 mg capsule 300 mg PO TID PRN PRN NERVE PAIN 10/20/22 [History Last Taken 05/31/23] amiodarone 200 mg tablet 200 mg PO DAILY heart rate #90 tabs 10/28/22 [Rx Last Taken 05/31/23] spironolactone 25 mg tablet 25 mg PO DAILY water pill #30 tabs 11/14/22 [Rx Last Taken 05/31/23] trazodone 100 mg tablet 150 mg PO QHS Check with primary doctor 11/14/22 [History Last Taken 05/31/23] ergocalciferol (vitamin D2) 1,250 mcg (50,000 unit) capsule (Vitamin D2) 1,250 mcg PO Q7D supplememt #0 caps 01/06/23 [Rx Last Taken 05/31/23] acetaminophen 500 mg tablet 1,000 mg (2 x 500 mg) PO Q8 #0 tabs 01/24/23 [Rx Last Taken 06/01/23] baclofen 10 mg tablet 10 mg PO TID 30 days #90 tabs 01/24/23 [Rx Last Taken 05/31/23] furosemide 40 mg tablet 40 mg PO DAILY 30 days #30 tabs 01/24/23 [Rx Last Taken 05/31/23] polysaccharide iron complex 150 mg iron capsule (Ferrex) 150 mg PO DAILY 30 days #30 caps 01/24/23 [Rx Last Taken Unknown] rivaroxaban 15 mg tablet (Xarelto) 15 mg PO DINNER 30 days #30 tabs 01/24/23 [Rx Last Taken 05/31/23] denosumab 60 mg/mL subcutaneous syringe (Prolia) 60 mg subcut [id number] #1 mL 03/10/23 [Rx Last Taken 04/11/23] prednisone 1 mg tablet 1 mg PO DAILY #100 tabs 03/10/23 [Rx Last Taken 05/31/23] methotrexate sodium 2.5 mg tablet 20 mg PO QWEEK 06/01/23 [History Last Taken 05/28/23] sulfasalazine 500 mg tablet,delayed release 0.5 g PO Q12H 06/01/23 [History Last Taken 05/31/23] tramadol 50 mg tablet 50 mg PO Q8H PRN pain 06/01/23 [History Last Taken 05/31/23] Allergy/AdvReac Type Severity Reaction Status Date / Time No Known Allergies Allergy Verified 06/01/23 06:54 Family History Father CVA (cerebral vascular accident) Brother CAD (coronary artery disease) CABG X 3 Mother CVA (cerebral vascular accident) Grandfather Cancer prostate Surgical History H/O colonoscopy H/O umbilical hernia repair History of cardiac catheterization History of coronary artery stent placement (08/06/20) History of coronary artery stent placement History of lumbar surgery Hx of colectomy Hx of laminectomy Hx of transurethral resection of prostate S/P appendectomy S/P cataract surgery S/P hemorrhoidectomy S/P inguinal hernia repair S/P laparoscopic cholecystectomy S/P left colectomy S/P rotator cuff repair S/P vasectomy Social History (Updated 06/01/23 @ 16:[address] Melva Wheeler DO) household members: none housing: house current occupational status: retired Smoking Status: Former smoker how long ago did patient quit smokin years ago alcohol intake: never substance use type: does not use diet: low salt caffeine: Yes Type: coffee Number of servings: 4 ROS Constitutional Constitutional: Reports anorexia, chills, fatigue, malaise and weakness; Denies change in weight, fever(s), night sweats or other Eyes Eyes: Denies blurry vision, change in eye color, change in vision, discharge from eye(s), double vision, erythema, eye pain, loss of vision or other ENT HEENT: Reports headache(s), nasal congestion, nasal discharge, post nasal drip and sore throat Cardiovascular Cardiovascular: Reports dyspnea on exertion; Denies chest pain, claudication, edema, lightheadedness, orthopnea, palpitations, paroxysmal nocturnal dyspnea, rapid heart rate, syncope or other Respiratory/Chest Respiratory/Chest: Reports cough, dyspnea, excessive phlegm production, productive cough, shortness of breath at rest and shortness of breath with exertion; Denies hemoptysis, wheezing or other Gastrointestinal Gastrointestinal: Denies abdominal pain, coffee ground emesis, constipation, diarrhea, dyspepsia, hematemesis, hematochezia, loose stools, melena, nausea, vomiting or other Genitourinary Genitourinary: Denies burning urination, difficulty urinating, dysuria, hematuria, nocturia, urinary frequency, urinary hesitancy, urinary incontinence, urinary urgency or other Musculoskeletal Musculoskeletal: Reports back pain, joint pain, joint stiffness and myalgias; Denies arthralgias, joint swelling, neck pain or other Neurologic Neurologic: Reports headache(s); Denies abnormal gait, abnormal speech, confusion, disequilibrium, dizziness, focal weakness, numbness, paresthesias, seizure-like activity, seizures, syncope, tingling, tremor(s) or other Psychiatric Psychiatric: Denies anxiety, depression, homicidal ideation, suicidal ideation or other Endocrine Endocrinology: Denies change in body appearance, cold intolerance, excessive sweating, heat intolerance, polydipsia, polyuria or other Hematologic/Lymphatic Hematologic/Lymphatic: Denies anemia, easy bleeding, easy bruising, lymphadenopathy or other Allergic/Immunologic Allergic/Immunologic: Denies rhinitis, hives, eczemia, asthma or other Vital Signs Vital Signs Vital Signs: 06/01/23 06:54 06/01/23 06:54 06/01/23 07:44 Temperature 98.9 F Temperature Source Temporal Pulse Rate 83 Respiratory Rate 19 H Respiratory Effort Normal Non-Labored Respiratory Depth Normal Respiratory Pattern Normal Blood Pressure 131/70 H Blood Pressure Mean 90 Pulse Ox 94 84 Oxygen Delivery Method Room Air Room Air Nasal Cannula Oxygen Flow Rate (L/min) 2 Weight Weight: 66.8 kg Body Mass Index (BMI) 27.8 Physical Exam Const alert, oriented x3, no apparent distress, average body habitus and well nourished; Negative for healthy appearing Constitutional Narrative: Elderly, white male, sitting up in bed, sounds very congested during conversation, no signs of respiratory distress, currently appears comfortable and nontoxic but does appear ill General Appearance: cooperative HEENT normocephalic, head/scalp atraumatic and moist oral mucous membranes HEENT Narrative: Mallampati 2-3, no thrush, mild hearing loss Eyes PERRL and conjunctivae normal Eyes Narrative: No scleral icterus Neck no lymphadenopathy and supple Neck Narrative: Trachea midline, no thyroid enlargement Resp normal respiratory effort, no retractions, no use of accessory muscles and clear to auscultation bilaterally Resp Narrative: Diminished diffusely but clear Auscultation: Negative for rales, rhonchi or wheezes Cardio regular rate, regular rhythm, S1 normal heart sound, S2 normal heart sound, no rub and no gallops; Negative for no murmurs Cardio Narrative: 3 out of 6 systolic murmur GI normal to inspection, nondistended, normoactive bowel sounds, soft to palpation and non-tender Extremity Extremity Narrative: Tube less lower extremity edema that patient reports chronic, no cyanosis or clubbing Skin no rashes or lesions noted, no wounds, skin turgor normal, no jaundice, no petechiae and no mottling Skin Narrative: Skin is pale but no significant lesions are noted Neuro oriented x3, moves all extremities and no focal motor deficits Speech: speech normal Psych affect normal Psych Narrative: Very pleasant Results Lab / Micro Data 06/01/23 07:39 06/01/23 07:39 Labs: Laboratory Results - last 24 hr 06/01/23 07:39: WBC 5.0, RBC 3.95 L, Hgb 12.8 L, Hct 38.7 L, MCV 98.0 H, MCH 32.4 H, MCHC 33.1, RDW Std Deviation 58.1 H, RDW Coeff of Jaciel 15.9 H, Plt Count 164, MPV 9.6, Immature Gran % (Auto) 0.200, Neut % (Auto) 72.4 H, Lymph % (Auto) 10.5 L, [place] % (Auto) 14.7 H, Eos % (Auto) 1.6, Baso % (Auto) 0.6, Absolute Neuts (auto) 3.7, Absolute Lymphs (auto) 0.53 L, Nucleated RBC % 0, Differential Comment COMMENT, Sodium 139, Potassium 4.0, Chloride 103, Carbon Dioxide 30.0, Anion Gap 6, BUN 14, Creatinine 0.92, Estim Creat Clear Calc 47.37, Est GFR (MDRD) Af Amer 102, Est GFR (MDRD) Non-Af 85, BUN/Creatinine Ratio 15.3, Glucose 111 H, Calcium 8.5, Total Bilirubin 0.40, AST 25, ALT 26, Alkaline Phosphatase 67, Total Creatine Kinase 184, Troponin I High Sens 20, Total Protein 6.9, Albumin 3.4, Globulin 3.5, Albumin/Globulin Ratio 1.0, Lipase 12 L 06/01/23 07:54: Urine Color YELLOW, Urine Clarity Clear, Urine pH 7.0, Ur Specific [place] 1.010, Urine Protein 15 H, Urine Glucose (UA) NEGATIVE, Urine Ketones 50, Urine Occult Blood Negative, Urine Nitrite Negative, Urine Bilirubin Negative, Urine Urobilinogen Normal, Ur Leukocyte Esterase Negative, Urine RBC 0 SEEN, Urine WBC 5-10 SEEN, Ur Squamous Epith Cells 5-10 SEEN, Urine Bacteria 2+, Urine Mucus 0 SEEN Micro: Microbiology 06/01/23 07:39 Mucosa - Nasopharyngeal SARS-CoV-2, Influenza & RSV (PCR) - Final SARS-CoV-2 (COVID 19 PCR) Rhythm Strip Rhythm Strip: A-fib Rate: 84 Ectopy: None Imagaing Radiology Impression Chest X-Ray 06/01/23 08:00 IMPRESSION: Low lung volumes with bibasilar atelectasis and scarring. Electronically Signed: Danielle Diaz MD at 8:38 EST Reading Location ID and State: [facility] / [place] Tel , Service support , Assessment & Plan Assessment/Plan (1) Hypoxia: (2) Weakness: (3) COVID-19: PLAN: Plan Acute hypoxia secondary to COVID-19 infection -Currently required 2 L nasal cannula to keep sats greater than 88% -Was 86% on room air -Symptoms started on 05/31/2023--> will need strict isolation through 06/04/2023 and wear a mask in public environments through 06/10/2023 -Start Decadron 6 mg daily and hold home prednisone -Will hold on remdesivir at this time due to the patient being on multiple medications with of which there could be interaction -Check CRP -As needed albuterol -I-S -Acapella -Antitussives ordered -Supportive care Falls/debility/generalized weakness -PT/OT consultation -Patient does live home alone -Case management and social work consulted to assist with discharge planning History of lumbar spine compression fractures/rib fractures -Notable at L1 and L5 with recent kyphoplasty -Also endplate damage noted at L2 and L3 with uncertain chronicity -As needed Tylenol available Osteoporosis -Patient is on Prolia at baseline -Recheck vitamin D level -Follows with Dr. 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 Unsuccessful PCI of MULTIFOCAL BUTTON GRINDER of LAD 08/06/2020 -Continue statin -Continue aspirin 81 mg -Continue home amiodarone -Continue home Lasix -Continue home Aldactone -No signs currently of acute decompensated heart failure -Last echocardiogram done on 09/24/2022 shows an EF of 50% with hypokinetic apex and mild left atrial enlargement along with moderate aortic stenosis Insomnia -Continue home trazodone Rheumatoid arthritis -Patient takes as needed prednisone 10 mg daily as needed -Will be on Decadron while hospitalized and likely discharge -Will continue home Simponi at discharge Chronic peripheral edema -Continue home diuretics -Eber wrap's ordered while hospitalized BPH with obstruction -Continue home finasteride -Continue home Flomax Insomnia -Continue home trazodone History of tobacco abuse -Encouraged ongoing cessation DVT prophylaxis -Continue home Xarelto CODE STATUS -DNR CCA with no intubation as verified on admission Charges/Coding Visit Charges Inpatient E&M: 70658 Init Hosp L2
--- OUTSIDE RECORDS SUMMARY | 2023-06-01 12:40 | XMS RPT_ITS | CCD ---
Author Name Unknown Address [address] [place] [address] Organization [facility] Care Team Providers Care Furnace Room Supervisor Name Role Phone Gloria Hazel Primary Care [...] 17:56-0400 Body temperature 97.81 [degF] María Ayan PUMP TECHNICIAN.BIOMETRICIAN Work Phone: [facility] 12-27-2022 17:56-0400 Diastolic blood pressure 66 mm[Hg] María Ayan PUMP TECHNICIAN.BIOMETRICIAN Work Phone: [facility] 12-27-2022 17:56-0400 Heart rate 72 /min María Ayan PUMP TECHNICIAN.BIOMETRICIAN Work Phone: [facility] 12-27-2022 17:56-0400 Respiratory rate 16 /min María Ayan PUMP TECHNICIAN.BIOMETRICIAN Work Phone: [facility] 12-27-2022 17:56-0400 SaO2% (BldA) [Mass fraction] 95 % María Ayan PUMP TECHNICIAN.BIOMETRICIAN Work Phone: [facility] 12-27-2022 17:56-0400 Systolic blood pressure 102 mm[Hg] María Ayan PUMP TECHNICIAN.BIOMETRICIAN Work Phone: [facility] 10-27-2021 14:52-0400 Body temperature 99.3 [degF] Lucero Mcwilliams PUMP TECHNICIAN.BIOMETRICIAN Work Phone: [facility] 10-27-2021 14:52-0400 Body weight 67.5 kg Lucero Mcwilliams PUMP TECHNICIAN.BIOMETRICIAN Work Phone: [facility] 10-27-2021 14:52-0400 Diastolic blood pressure 70 mm[Hg] Lucero Mcwilliams PUMP TECHNICIAN.BIOMETRICIAN Work Phone: [facility] 10-27-2021 14:52-0400 Heart rate 76 /min Lucero Mcwilliams PUMP TECHNICIAN.BIOMETRICIAN Work Phone: [facility] 10-27-2021 14:52-0400 Respiratory rate 18 /min Lucero Mcwilliams PUMP TECHNICIAN.BIOMETRICIAN Work Phone: [facility] 10-27-2021 14:52-0400 SaO2% (BldA) [Mass fraction] 97 % Lucero Mcwilliams APRN.CNP Work Phone: [facility] 10-27-2021 14:52-0400 Systolic blood pressure 122 mm[Hg] Lucero Mcwilliams APRN.CNP Work Phone: [facility] Encounters Encounter Date Encounter Type Care Provider Facility Start: 12-27-2022 End: 12-27-2022 ambulatory GLORIA KODAK HAZEL Facility:[facility] Start: 12-27-2022 End: 12-27-2022 Patient encounter procedure María Ayan EDMONDSON.VERITO Work Phone: [facility] Plan of Treatment Date Care Activity Detail Author Start: 08-17-2023 DIABETES SCREEN DIABETES SCREEN [facility] Start: 01-27-2023 Influenza vaccination INFLUENZA (#1) [facility] Start: 05-29-2022 ADVANCE DIRECTIVE DISCUSSION ADVANCE DIRECTIVE DISCUSSION [facility] Start: 05-29-2022 DEPRESSION ASSESSMENT DEPRESSION ASSESSMENT [facility] Start: 10-27-2021 End: 11-10-2021 Influenza virus A and B RNA and SARS-CoV-2 (COVID-19) N gene panel - Respiratory specimen by JUDI with probe detection COVID WITH FLUA+B, ROUTINE Microbiology Routine URI, acute Viral illness Expected: 10/27/2021, Expires: 11/10/2021 [facility] Work Phone: Payers Date Payer Category Payer Medicare MMO MEDICARE MMO MEDADVANTAGE O [id number] 2020-Present [phone] [address] [place] [address] O [id number] 2020 Medicare MMO MEDICARE MMO MEDADVANTAGE O [id number] 2020-Present [phone] [address] [place] [address] [facility] [id number] 2020 Unknown [id number] Social History Date Type Detail Facility Start: 04-24-2016 Tobacco smoking stat us NHIS Ex-smoker [facility] Start: 04-24-2016 Tobacco use and exposure Smokeless tobacco non-user [facility] Start: 10-27-2021 End: 12-27-2022 Alcohol intake Not Asked [facility] Start: 1940 Sex Assigned At Not on file [facility] Start: 10-17-2021 End: 10-27-2021 Exposure to SARS-CoV-2 (event) Not sure [facility] Work Phone: History of tobacco use Current smoker [facility] Start: 03-02-2021 End: 12-27-2022 History of Social function [facility] Start: 03-02-2021 End: 12-27-2022 Tobacco use panel [facility] National Score (1-100), lower number is lower risk Not on file [facility] Clinical Notes 08-13-2020 to 12-27-2022 Patient InstructionsMaría Haas, DEBO.BIOMETRICIAN - 12/27/2022 6:16 PM EDTTelephone Encounter - Faustina Sheldon LPN - 10/28/2021 10:02 AM EDTTelephone Encounter - Tonio Johnson MD - 10/28/2021 7:54 AM EDT Note Date & Type Note Facility 12-27-2022 Note HNO ID: [id number] Author: Cami Nick RT(R) Service: Radiology Author [...] Nick, RT(R) December 27, 2022 6:22 PM [facility] 12-27-2022 Note HNO ID: [id number] Author: María Haas APRN.BIOMETRICIAN Service: ? Author Type: Nurse Practitioner Type: Progress Notes Filed: 12/27/2022 7:34 PM Note Text: Subjective The history is provided by the patient and a relative. No underwriting support specialist was used. HPI Bryce Rodriguez is [...] have confirmed and edited as necessary, the [facility] Review of Systems Constitutional: Negative for chills [...] warranting prompt ER evaluation. María Haas APRN.CNP [facility] 12-27-2022 Instructions María Haas APRN.CNP - [...] inability to swallow. documented in this encounter [facility] 12-27-2022 History of Present illness Narrative Images from the original note were not included. Subjective The history is provided by the patient and a relative. No underwriting support specialist was used. HPI Bryce Rodriguez is [...] have confirmed and edited as necessary, the [facility] Review of Systems Constitutional: Negative for chills [...] María Haas APRN.VERITO documented in this encounter [facility] 10-28-2021 Miscellaneous Notes Phone call placed [...] ER if severe. documented in this encounter [facility] 10-27-2021 Instructions Lucero Mcwilliams APRN.VERITO - [...] follow-ups on file. documented in this encounter [facility] 10-27-2021 History of Present illness Narrative This note was created using Pretty Padded Roomriter. Subjective Bryce Rodriguez is a 80 year old male. 80 year old male with PMH irregular heart beat, hyperlipidemia, RA and cardiac stents (on Xarelto) presents requesting COVID testing. Acute onset Monday night +cough +nasal congestion +fever + chills +body aches + malaise Denies N/V/D Denies skin rash or lesions. States that he has had COVID vaccine. He works at [employer], states his last day was October 09. Unknown if he was in direct contact with ill persons. 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 Denies tobacco usage. The history is provided by the patient. No underwriting support specialist was used. URI He complains of [...] WITH FLUA+B, ROUTINE-obtained and pending Lucero Mcwilliams APRN.BIOMETRICIAN documented in this encounter [facility] 08-17-2020 Note HNO ID: [id number] Author: Sara (Rn) ELROY Edge Service: Care Management Author Type: Registered Nurse Type: Care Mgt Progress Note Filed: 08/17/2020 2:43 PM Note Text: CARE MANAGEMENT DISCHARGE NOTE SERVICE DATE: 08/17/2020 SERVICE TIME: 2:28 PM LOS: 1 day Admission Date: 08/12/2020 DISCHARGE ARRANGEMENT (list agency and phone number) Discharge Arrangement: [facility] facility Was an expedited discharge program used?: Yes Type: (MMO Waiver) Provider Name: Jerrod GALVEZ CAREGIVER ASSESSMENT: HANDOFF COMMUNICATION: Handoff to: Primary Care Physician Primary Care Physician Name/Phone: Gloria Hazel MD TRANSPORTATION ARRANGEMENTS: Transportation Arrangements: Ambulance/[facility] Transportation Agency and Phone #:: [facility] ( [facility] ) [phone] / [phone] Date of Trip: 08/17/20 Time of Trip: 1500 Type of Service: Wheelchair Is Patient Medicaid Pending?: No Discussion of financial coverage occurred with: 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 [facility] is transporting patient via WC at 15:00. Patient and his dtr Melanie have been notified. RN aware of discharge time. Orders have been faxed and facility notified. SIGNATURE: Sara Edge RN PATIENT NAME: Bryce Rodriguez DATE: August 17, 2020 TIME: 2:28 PM PAGER/CONTACT #: [phone] [facility] 08-17-2020 Note HNO ID: [id number] Author: Sara Lee) ELROY Edge Service: Care Management Author Type: Registered Nurse Type: Care Mgt Progress Note Filed: 08/17/2020 10:48 AM Note Text: CARE MANAGEMENT PROGRESS NOTE SERVICE DATE: 08/17/2020 SERVICE TIME: 10:45 AM LOS: 1 day Epic notes reviewed. PT/OT evals recommending SNF at discharge and patient agreeable. Has been accepted at [facility]. Precert waivered and facility has bed available today. Covid test and requested updates sent. Anticipate discharge today. SIGNATURE: Sara Edge RN PATIENT NAME: Bryce Rodriguez DATE: August 17, 2020 TIME: 10:45 AM PAGER/CONTACT #: [phone] [facility] 08-17-2020 Note HNO ID: [id number] Author: Macrina Shea Service: Hospital Medicine Author [...] PMHx of HTN, BPH, CAD, Afib Recent MD, RA admit 08/12/20 for syncope 3/11/21 cardiac cath: CAD. Successful PCI on OM2 with GAGE. Unsuccessful PCI of COURT ADMINISTRATOR of LAD Recommendation: he may need re attempt at PCI of COURT ADMINISTRATOR of LAD or referral for ARELLANO to LAD Cardiology had evaluated him and recommended Holter monitor to assess for conduction deficits Cardovascular surgery had evaluated patient. Per Dr. Kyree Gardner, Upon review of the catheterization, it appears that patient has a stent in the OM and COURT ADMINISTRATOR of the LAD. He does have some [...] 110/59 No lightheadedness Plan: discharge to SNF -[facility] Medication and Non-Pharmacologic VTE Prophylaxis/Anticoagulants Anticoagulant [...] indicated (fl,oh) 08/12/202129 activity - mobilize patient (ct,az) VTE Prophylaxis: SIGNATURE: Macrina Shea DO PATIENT NAME: Bryce Rodriguez DATE: August 17, 2020 TIME: PAGER: [facility] 08-16-2020 Note HNO ID: [id number] Author: Macrina Shea Service: Hospital Medicine Author [...] PMHx of HTN, BPH, CAD, Afib Recent MD, RA admit 08/12/20 for syncope 08/06/20 cardiac cath: CAD. Successful PCI on OM2 with GAGE. Unsuccessful PCI of COURT ADMINISTRATOR of LAD Recommendation: he may need re attempt at PCI of COURT ADMINISTRATOR of LAD or referral for ARELLANO to LAD Cardiology had evaluated him and recommended Holter monitor to assess for conduction deficits Cardovascular surgery had evaluated patient. Per Dr. Kyree Gardner, Upon review of the catheterization, it appears that patient has a stent in the OM and COURT ADMINISTRATOR of the LAD. He does have some [...] 08/12/202129 vte non-pharmacologic prophylaxis - none indicated (ct,oh) 08/12/202129 activity - mobilize patient (ct,az) VTE Prophylaxis: SIGNATURE: Macrina Shea DO PATIENT NAME: Bryce Rodriguez DATE: August 16, 2020 TIME: 12:19 PM PAGER: [facility] 08-15-2020 Note HNO ID: [id number] Author: Paul Tony Service: Hospital Medicine Author [...] for SNF [facility] and will Likely be on Monday. Medication [...] 08/12/202129 vte non-pharmacologic prophylaxis - none indicated (ct,az) 08/12/202129 activity - mobilize patient (ct,az) VTE Prophylaxis: VTE prophylaxis appropriate SIGNATURE: Paul Tony MD PATIENT NAME: Bryce Rodriguez DATE: August 15, 2020 TIME: 10:08 AM [facility] 08-15-2020 Note HNO ID: [id number] Author: Interface Note Service: ? Author Type: ? Type: Progress Notes Filed: 08/15/2020 3:06 AM Note Text: Epic Scheduled Downtime: 08/15/2020 1:00:00 AM to 08/15/2020 2:48:00 AM [facility] 08-14-2020 Note HNO ID: [id number] Author: Fernando Guidry Service: Hospital Medicine Author [...] PT/OT recommend SNF at DC Plan for [facility] but no bed available till Monday. Will need rpt COVID test ordered over weekend for discharge on monday ? SIGNATURE: Fernando Guidry MD PATIENT NAME: Bryce Rodriguez DATE: August 14, 2020 TIME: 2:55 PM PAGER: [facility] 08-14-2020 Note HNO ID: [id number] Author: Cidny CoronaRn) ELROY Montes Service: Care Management Author Type: Registered Nurse Type: Care Mgt Progress Note Filed: 08/14/2020 1:46 PM Note Text: CARE MANAGEMENT PROGRESS NOTE SERVICE DATE: 08/14/2020 SERVICE TIME: 1:45 PM LOS: 1 day Spoke with pt at the bedside. Therapy recs SNF. Pt would like SNF- [facility]. They are able to accept pt. No bed available until Monday. MMO Waiver- per SNF. Pt is agreeable to w/c transport at d/c. CM to follow. SIGNATURE: Cindy Montes RN PATIENT NAME: Bryce Rodriguez DATE: August 14, 2020 TIME: 1:44 PM PAGER/CONTACT #: [phone] [facility] 08-13-2020 Note HNO ID: [id number] Author: Fernando Guidry Service: Hospital Medicine Author [...] August 13, 2020 TIME: 5:28 PM PAGER: [facility] 08-13-2020 Note HNO ID: [id number] Author: Sara (Rn) ELROY Edge Service: Care Management Author Type: Registered Nurse Type: Care Mgt Initial Assessment Filed: 08/13/2020 3:19 PM Note Text: CARE MANAGEMENT: ASSESSMENT AND DISCHARGE PLAN SERVICE DATE: August 13, 2020 SERVICE TIME: 3:14 PM PRIMARY CARE PHYSICIAN: Gloria Hazel MD ADMISSION STATUS: Observation Needs Prior to Discharge: OT/PT Evaluation;Discharge Prescriptions;To Be Determined;Facility or Agency Choices MEDICAL: MMO MEDADVANTAGE O Patient/Price Lister Stated Goals: To have reduction in symptoms;To be cured/healed;To improve my functional status Health Insurance: [employer] Health Issues Impacting Discharge Plan: Uncontrolled Uncontrolled: Syncopal event Last Discharge Date: N/A Is this Within the Past 30 days? Last discharge within 30 days: No Advance Directive: Current Advance Directive: Health Care Power of Combine Mechanic In Chart: No Disease Case Manager Attempted to Assist with AD Completion: Yes [...] Walker;Cane Has the Patient Been in a Group Home Facility in the Past 30 days?: No SOCIAL: Living Arrangements: Home Lives With: Alone Financial Resources: Retired Primary Contact: Extended Emergency Contact Information Primary Emergency Contact: Melanie Hanna Mobile Relation: Daughter Supportive Patient Contact:: Yes Contact Resources: Family Family Name/Phone: Melanie (dtr) [phone] Caregiver AssessmentCaregiver is ready, willing and able [...] Completely I feel financially burdened by my kit-er-nkacdg expenses for my prescription medication:: 0 - Disagree Mostly Risk Score: 0 Patient is categorized as: Low risk < 2 Are you interested in bedside delivery of your medications? No Is Patient Psychosocially Complex?: No ASSESSMENT AND PLAN: Medical Needs: Medical Needs: Two or more chronic diseases;Fall risk or frequent falls Psychosocial Needs: Psychosocial Needs: None FREEDOM OF CHOICE EXPLAINED: [place]ber[place] of Choice Given: No Reason Not Given: No placements necessary POTENTIAL TRANSITION PLANS Group Home Facility/Intermediate Care Facility From home alone. 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 Has walker and cane. (+) PCP. [facility] Was recently at [facility] and then discharged home with [facility]. Will need PT/OT evals as anticipate may need SNF at discharge. If SNF recommended patient wants referral to [facility]. SIGNATURE: Sara Edge RN PATIENT NAME: Bryce Rodriguez DATE: August 13, 2020 TIME: 3:14 PM PAGER/CONTACT #: [phone] [facility] 08-13-2020 Note HNO ID: [id number] Author: Sara (Elroy) ELROY Edge Service: Care Management Author Type: Registered Nurse Type: Care Mgt Progress Note Filed: 08/13/2020 3:04 PM Note Text: CARE MANAGEMENT PROGRESS NOTE SERVICE DATE: 08/13/2020 SERVICE TIME: 3:03 PM LOS: 1 day Observation letter given to patent on 08/13/2020 SIGNATURE: Sara Edge RN PATIENT NAME: Bryce Rodriguze DATE: August 13, 2020 TIME: 3:03 PM PAGER/CONTACT #: [phone] [facility] Rib pain on right side- Primary Chest pain, unspecified Closed fracture of multiple ribs of right side, initial encounter [facility] ([facility] Diagnostic Procedure Only (Urgent) - Closed Specialty Diagnoses / Procedures Referred By Contac t Referred To Contact XR IMAGING Diagnoses Rib pain on right side Procedures XR RIBS/CHEST 3V AP RIB/OBLS/CXR RIGHT RADEX RIBS UNI W/POSTEROANT CH MINIMUM 3 VIEWS María Haas, DEBO.BIOMETRICIAN [address] [place] [address] Xr Imaging Referral ID Status Reason Start Date Expiration Date V isits Requested Visits Authorized [id number] Closed Auto-Generate d Referral 12/27/2022 01/26/2024 1 1 [facility] Summary Purpose Family History No Family History Records FoundNo Family History Records FoundNo Family History Records Found Advance Directives No Advanced Directives Records FoundDocuments on File Type Date Recorded Patient Price Lister Expl anation Advance Directive(s) 08/13/2020 9:59 AM Advance Directive(s) 08/13/2020 3:13 PM Advance Directive(s) 08/12/2020 3:51 PM Documents on File Type Date Recorded Patient Price Lister Expl anation Advance Directive(s) 08/13/2020 3:13 PM [...] DATE CREATED AUTHOR AUTHOR'S ORGANIZ ATION 09/21/2020 [facility] DATE CREATED AUTHOR AUTHOR'S ORGANDARRICK ATION 12/28/2022 [facility] Source Comments (unrecognize d section and content) In the event this informatio n is protected by the Federal Confidentiality of Alcohol and Drug Abuse Patient Records regulations: The Federal rules restrict any use of the information to criminally investigate or prosecute any alcohol or drug abuse patient.[facility] the event this information is protected by the Federal Confidentiality of Alcohol and Drug Abuse Patient Records regulations: The Federal rules restrict any use of the information to criminally investigate or prosecute any alcohol or drug abuse patient.[facility] the event this information is protected by the Federal Confidentiality of Alcohol and Drug Abuse Patient Records regulations: The Federal rules restrict any use of the information to criminally investigate or prosecute any alcohol or drug abuse patient.[facility] Reason for Visit (unrecogniz ed section and content) Reason Comments Results COVID+ Reason Comments Rib Injury right side rib pain and bruising with wheezing after fall x days Care Teams (unrecognized sec tion and content) Furnace Room Supervisor Relationship Specialty Start Date End Date Gloria Hazel [address] [place] [address] PCP - General 06/02/04 Furnace Room Supervisor Relationship Specialty Start Date End Date Gloria Hazel [address] [place] [address] PCP - General 06/02/04 FOR RECORDS PERTAINING [...] BE BASED ON THE PRIMARY CLINICAL RECORDS. [facility] [employer] [facility]. provides no warranty or guarantee of the accuracy or completeness of information in this document.
[2023-06-01 14:12] LABS: Vitamin D,25 Hydroxy 50.5 ng/mL
[2023-06-01] MEDS: Albuterol 2.5 MG/3 ML VIAL.NEB. INHALATION (14:31)
[2023-06-01] MEDS: dexAMETHasone 4 MG Tablet 6 MG PO (15:05)
[2023-06-01] MEDS: guaiFENesin 10 ML UDC (200MG/10ML) 20 ML PO (15:06)
[2023-06-01] MEDS: Benzonatate 100 MG Capsule PO (17:41)
[2023-06-01] MEDS: Fluticasone 0.05% 1 SPRAY NASAL.SRY NASAL (17:41)
[2023-06-01] MEDS: Rivaroxaban 15 MG Tablet PO (17:41)
[2023-06-01] MEDS: Tamsulosin HCl 0.4 MG Capsule 0.400000000000000022 MG PO (17:41)
[2023-06-01] MEDS: sulfaSALAzine 500 MG Tablet PO (17:41)
[2023-06-01] MEDS: Ipratropium/Albuterol Sulfate 3 ML AMPUL.NEB INHALATION (21:16)
[2023-06-01] MEDS: Atorvastatin Calcium 40 MG Tablet PO (23:59)
[2023-06-01] MEDS: Acetaminophen 500 MG Tablet 1000 MG PO (23:59)
[2023-06-02] VITALS (12 sets, daily range): BP systolic 111–124; BP diastolic 58–75; PULSE 78–89; RESP 12–20; TEMP 36.5–37.2; O2SAT 89–98; BMI 27.8
[2023-06-02] MEDS: traZODone 50 MG Tablet 150 MG PO
[2023-06-02] MEDS: Baclofen 10 MG Tablet PO ×3 (04:23→14:54)
[2023-06-02] MEDS: Acetaminophen 500 MG Tablet 1000 MG PO ×3 (04:24→22:26)
[2023-06-02 07:09] LABS: Absolute Lymphocyte Count 0.95 X10^3/uL (0.83-4.51); Absolute Neutrophil Count 2.7 X10^3/uL (2.0-7.7); Hematocrit 33.8 % (40-54); Hemoglobin 11.4 g/dL (13.0-16.5); Lymphocyte # 0.95 X10^3/ul (0.83-4.51); Lymphocyte % 22.5 % (19-41); Mean Corp Hgb Conc 33.7 g/dL (32-36); Mean Corpuscular Hgb 33.1 pg (27.0-32.0); Mean Corpuscular Volume 98.3 fL (80-94); Mean Platelet Vol. 9.4 fl (6.2-12.0); Monocyte# 0.55 X10^3/uL; NRBC Flagged by Analyzer 0 % (0-5); Neutrophil # 2.72 X10^3/uL (2.7-7.7); Neutrophil % 64.5 % (47-70); Platelet Count 138 K/mm3 (150-450); RBC Distribution Width CV 16.2 % (11.6-14.6); RBC Distribution Width SD 58.4 fl (35.1-43.9); Red Blood Count 3.44 M/mm3 (4.6-6.2); White Blood Count 4.2 K/mm3 (4.4-11.0)
[2023-06-02] MEDS: Ipratropium/Albuterol Sulfate 3 ML AMPUL.NEB INHALATION ×3 (07:16→19:07)
[2023-06-02 08:14] LABS: ALB/GLOB Ratio 0.9 RATIO (0.9-2.4); AST(SGOT) 19 U/L (15-37); Alanine Aminotransfer ALT/SGPT 21 U/L (16-61); Albumin, Serum 2.7 g/dL (3.2-5.0); Alkaline Phosphatase 51 U/L (45-117); Anion Gap 3 (5-15); BUN 16 mg/dL (7-18); BUN/Creat Ratio 22.6 RATIO (10-20); Chloride 109 mmol/L (98-107); Creatinine, Serum 0.71 mg/dL (0.70-1.30); EST Glomerular Filtration Rate 114 mL/min (>60); Est Glom Filt Rate - Afr Amer 137 mL/min (>60); Estimated Creatinine Clearance 43.58 ml/min; Glucose 124 mg/dL (74-106); Magnesium 2.4 mg/dL (1.6-2.6); Phosphorus 4.1 mg/dL (2.5-4.9); Potassium 4.1 mmol/L (3.5-5.1); Protein, Total 5.7 g/dL (6.4-8.2); Sodium Level 139 mmol/L (136-145); Thyroid Stim Hormone (TSH) 0.27 uIU/mL (0.358-3.74)
[2023-06-02] MEDS: dexAMETHasone 4 MG Tablet 6 MG PO (08:32)
[2023-06-02] MEDS: Furosemide 40 MG Tablet PO (08:32)
[2023-06-02] MEDS: Spironolactone 25 MG Tablet PO (08:33)
[2023-06-02] MEDS: Amiodarone 200 MG Tablet PO (08:33)
[2023-06-02] MEDS: sulfaSALAzine 500 MG Tablet PO ×2 (08:33→17:15)
[2023-06-02] MEDS: Multivitamins,Therapeutic Tablet 1 TABLET PO (08:34)
[2023-06-02] MEDS: Finasteride 5 MG Tablet PO (08:34)
[2023-06-02] MEDS: Fluticasone 0.05% 1 SPRAY NASAL.SRY NASAL ×2 (08:37→22:27)
[2023-06-02 09:11] LABS: T4 Free Direct 1.08 ng/dL (0.76-1.46)
--- NOTE | 2023-06-02 11:45 | NURSING ---
Attempted to wean pt off of 1L O2, stating 97% on 1L, when moved to room air patient destats to 87%, placed back on 1L, stating 97%, will continue to monitor and will reattempt to wean again.
--- NOTE | 2023-06-02 14:17 | CHAPLAIN ---
Type of Pastoral Visit ___ Initial Visit ___ Follow-up Visit ___ On-call Visit ___ General Patient Visit ___ Spiritual Assessment ___ Family Conference ___ Bereavement ___ Rapid Response ___ Code Blue _x__ Other (describe below) Pastoral Care Referral From _x__ Patient ___ Family ___ Nurse ___ Physician ___ Vacuum Forming Machine Operator ___ Production Truck Driver ___ Other (describe below) Sacrament/Intervention _x__ Active listening ___ Anointing ___ Scientologist ___ Bereavement ___ Communion ___ Enriqueta exploration ___ ___ Life review _x__ Prayer ___ Reconciliation ___ Sacrament of Sick ___ Supportive presence ___ Wedding ___ Other (describe below) Pastoral Comments phone call made into isolation room; pt is able to answer the phone and talk; pt reports on his status and that he is optimistic about progress; pt is coping well in isolation per his report as he is doing what they tell me ; pt welcomes the call to talk with someone and the prayers offered
--- NOTE | 2023-06-02 16:10 | CASEMGMT ---
ELROY COLLAZO Assessment: Face to Face with pt for initial transition planning/care coordination assessment. ELROY COLLAZO introduced self and role at [facility], pt voices understanding and consents to assessment. Pt is A&O x4 and answers all questions appropriately at this time. Pt lying in bed in no distress on RA. Care providers, pharmacy, and demographics verified/updated. Admitting Dx: hypoxia 2/2 covid/generalized weakness PCP:Ilir Specialists:candi Perez; Erinn, rheum; [facility], cardio Preferred Pharmacy: [facility] Insurance: [facility] Prescription Benefit: yes LNOK: Melanie Hanna, dtr Living Arrangements: Pt lives alone in a single story home with 1 step to enter. Pt reports he is I in ADL's and his dtr gets groceries and does laundry. Pt sponge bathes at the sink. Pt denies concerns at home. Transportation: Pt doesn't drive. Pt dtr transports pt to medical appts. DME:grab bars in shower, shower chair, FWW, medic alert, cane HHC/SNF: Pt has had HHC in the past but cannot recall name of agency. Pt has been to [facility] and the [facility]. Pt does not want to go back to TCU in any circumstance. Pt states no concerns with going home at time of dc. He states his dtr will assist him if needed. Pt states he has exercises from the home PT who saw him, he plans to do these. Pt denies need for therapy at this time. Therapy evals pending. Pt states no further concerns/needs. CM to follow. Advised pt to ask CM if any further question/concerns/needs arise, voices understanding. Pt Goal: Home Plan: Home, follow therapy evals.
[2023-06-02] MEDS: Tamsulosin HCl 0.4 MG Capsule 0.400000000000000022 MG PO (17:15)
[2023-06-02] MEDS: Rivaroxaban 15 MG Tablet PO (17:15)
--- NOTE | 2023-06-02 22:24 | NURSING ---
Patient would like HS meds closer to midnight.
[2023-06-02] MEDS: Atorvastatin Calcium 40 MG Tablet PO (22:27)
[2023-06-03] VITALS (8 sets, daily range): BP systolic 105–137; BP diastolic 66–71; PULSE 61–89; RESP 18–20; TEMP 36.4–36.8; O2SAT 93–98; BMI 27.7
[2023-06-03] MEDS: traZODone 50 MG Tablet 150 MG PO (00:01)
[2023-06-03] MEDS: Baclofen 10 MG Tablet PO ×2 (00:01→06:31)
[2023-06-03 06:23] LABS: Absolute Lymphocyte Count 1.19 X10^3/uL (0.83-4.51); Absolute Neutrophil Count 3.5 X10^3/uL (2.0-7.7); Basophil# 0.01 X10^3/uL; Basophil% 0.2 % (0-1); Hematocrit 37.3 % (40-54); Lymphocyte # 1.19 X10^3/ul (0.83-4.51); Lymphocyte % 22.1 % (19-41); Mean Corp Hgb Conc 32.2 g/dL (32-36); Mean Corpuscular Hgb 31.5 pg (27.0-32.0); Mean Corpuscular Volume 97.9 fL (80-94); Mean Platelet Vol. 9.7 fl (6.2-12.0); Monocyte# 0.66 X10^3/uL; Monocyte% 12.3 % (0-10); NRBC Flagged by Analyzer 0 % (0-5); Neutrophil # 3.51 X10^3/uL (2.7-7.7); Neutrophil % 65.2 % (47-70); Platelet Count 165 K/mm3 (150-450); RBC Distribution Width CV 16.3 % (11.6-14.6); RBC Distribution Width SD 58.8 fl (35.1-43.9); Red Blood Count 3.81 M/mm3 (4.6-6.2); White Blood Count 5.4 K/mm3 (4.4-11.0)
[2023-06-03] MEDS: Acetaminophen 500 MG Tablet 1000 MG PO (06:31)
[2023-06-03] MEDS: Fluticasone 0.05% 1 SPRAY NASAL.SRY NASAL (06:31)
[2023-06-03 06:51] LABS: Anion Gap 6 (5-15); BUN 21 mg/dL (7-18); BUN/Creat Ratio 29.4 RATIO (10-20); Calcium,Total 8.2 mg/dL (8.5-10.1); Chloride 109 mmol/L (98-107); Creatinine, Serum 0.72 mg/dL (0.70-1.30); EST Glomerular Filtration Rate 112 mL/min (>60); Est Glom Filt Rate - Afr Amer 136 mL/min (>60); Estimated Creatinine Clearance 43.58 ml/min; Glucose 106 mg/dL (74-106); Potassium 3.5 mmol/L (3.5-5.1); Sodium Level 143 mmol/L (136-145)
[2023-06-03] MEDS: Ipratropium/Albuterol Sulfate 3 ML AMPUL.NEB INHALATION ×2 (07:49→13:23)
[2023-06-03] MEDS: sulfaSALAzine 500 MG Tablet PO (09:42)
[2023-06-03] MEDS: Furosemide 40 MG Tablet PO (09:42)
[2023-06-03] MEDS: dexAMETHasone 4 MG Tablet 6 MG PO (09:42)
[2023-06-03] MEDS: Spironolactone 25 MG Tablet PO (09:42)
[2023-06-03] MEDS: Finasteride 5 MG Tablet PO (09:42)
[2023-06-03] MEDS: Multivitamins,Therapeutic Tablet 1 TABLET PO (09:43)
[2023-06-03] MEDS: Amiodarone 200 MG Tablet PO (09:43)
--- NOTE | 2023-06-03 13:07 | DS.PCM_ITS ---
Providers Date of Admission: 06/01/23 Date of Discharge: 06/03/23 Primary Care Physician: Dr. Gloria Hazel MD Reason For Visit: HYPOXIA 2/2 COVID/GENERALIZED WEAKNESS Diagnosis Discharge Diagnosis (1) Hypoxia: Status: Acute Code(s): R09.02 - Hypoxemia (2) Weakness: Status: Acute Code(s): R53.1 - Weakness (3) COVID-19: Status: Acute Code(s): U07.1 - COVID-19 Medications at Discharge Home Medications tamsulosin 0.4 mg capsule 0.4 mg PO DAILY@1800 Retention 07/18/20 finasteride 1 mg tablet 5 mg PO DAILY prostate 12/30/20 multivitamin (Daily Multi-Vitamin tablet) 1 tab PO DAILY Check with primary doctor 01/01/21 golimumab 12.5 mg/mL intravenous solution (Simponi ARIA) 12.5 mg IV .[id number] injection 05/31/22 atorvastatin 40 mg tablet (Lipitor) 40 mg PO QHS Cholesterol #90 tabs 10/07/22 gabapentin 300 mg capsule 300 mg PO TID PRN PRN NERVE PAIN 10/20/22 amiodarone 200 mg tablet 200 mg PO DAILY heart rate #90 tabs 10/28/22 spironolactone 25 mg tablet 25 mg PO DAILY water pill #30 tabs 11/14/22 trazodone 100 mg tablet 150 mg PO QHS Check with primary doctor 11/14/22 ergocalciferol (vitamin D2) 1,250 mcg (50,000 unit) capsule (Vitamin D2) 1,250 mcg PO Q7D supplememt #0 caps 01/06/23 acetaminophen 500 mg tablet 1,000 mg (2 x 500 mg) PO Q8 #0 tabs 01/24/23 baclofen 10 mg tablet 10 mg PO TID 30 days #90 tabs 01/24/23 furosemide 40 mg tablet 40 mg PO DAILY 30 days #30 tabs 01/24/23 polysaccharide iron complex 150 mg iron capsule (Ferrex) 150 mg PO DAILY 30 days #30 caps 01/24/23 rivaroxaban 15 mg tablet (Xarelto) 15 mg PO DINNER 30 days #30 tabs 01/24/23 denosumab 60 mg/mL subcutaneous syringe (Prolia) 60 mg subcut [id number] #1 mL 03/10/23 prednisone 1 mg tablet 1 mg PO DAILY #100 tabs 03/10/23 methotrexate sodium 2.5 mg tablet 20 mg PO QWEEK 06/01/23 sulfasalazine 500 mg tablet,delayed release 0.5 g PO Q12H 06/01/23 tramadol 50 mg tablet 50 mg PO Q8H PRN pain 06/01/23 dexamethasone 4 mg tablet 6 mg (1.5 x 4 mg) PO DAILY #7 tabs 06/03/23 Hospital Course Operations None Procedures EKG and - (Chest x-ray) Summary of Care Provided Minutes Spent on Discharge: 36 Hospital Course: BRYCE ANN, is a 82 M who presented to the emergency department at [facility] on 06/01/2023 with a chief complaint of generalized weakness and fall. The patient had reported that he was his normal self up until yesterday afternoon at which time he began having a sore throat and some nasal congestion. He then developed some generalized weakness, cough with intermittent production, myalgias, and mild headache. He has no known sick contacts. He fell around 430 this morning when he was getting up to use the restroom. He reported that his legs just gave out on him and landed on his buttocks. He denied injuries related to his fall but was too weak to get up. He laid on the ground for about 30 minutes and then was able to trigger his life alert and was brought to the emergency department by the squad. He lives at home alone. Vital signs on presentation showed temperature of 98.9, heart rate was 83, blood pressure is 131/70, respiratory rate was 19 and oxygen saturation was initially 94% on room air however he dropped to 84% on room air and was placed on 2 L nasal cannula with an oxygen saturation improving to 97%. His CBC shows a chronic stable anemia with a hemoglobin of 12.8 and no leukocytosis ho wever he does have a mild left shift with a 72.4% neutrophilia and a 14.7% monocytosis. His chemistry panel was overall unremarkable. His UA is unremarkable for signs of infection. His lipase was 12. His chest x-ray showed low lung volumes with basilar atelectasis and scarring but no acute findings. Urine culture was sent in the emergency department and his RSV/COVID/flu PCR was positive for COVID-19. Patient was admitted to the medical floor and required supplemental oxygen at 2 L. We placed him on Decadron and were able to wean his oxygen to room air by the time of discharge. He did extremely well physical therapy and they indicated he needed no further assistance or therapy services at discharge. The patient was overall feeling better and was stable for discharge home on 11/16/2023. We did an ambulatory pulse ox and his oxygen saturation on room air at rest was 97 and during ambulation was 93% so he did not qualify for any supplemental oxygen. I did keep him on Decadron to complete a 10-day course of Decadron and prescription was sent to local pharmacy. I have advised him to stay away from people and isolate himself until 06/04/2023 and then after that period of time for 5 days wear mask when in public spaces or with other people. He voiced understanding and was anxious to go home. He was discharged home in stable condition on 06/03/2023. Discharge diagnoses: Acute hypoxia COVID-19 infection Falls Generalized weakness Debility History of lumbar compression fractures History of rib fractures Osteoporosis History of GI bleed Chronic macrocytic anemia CAD PAF Hyperlipidemia Chronic diastolic heart failure HTN Moderate aortic stenosis Insomnia Rheumatoid arthritis Chronic peripheral edema BPH with obstruction Insomnia History of tobacco abuse Physical Exam Const alert, oriented x3, no apparent distress, average body habitus and well nourished; Negative for healthy appearing Constitutional Narrative: Elderly, white male, sitting up in bed, watching television eating breakfast, appears comfortable nontoxic, on room air General Appearance: cooperative, comfortable, well kempt and well developed Orientation / Consciousness: awake, oriented to person, oriented to place and oriented to time Exam Limitations: no limitations Nutritional Appearance: overweight HEENT normocephalic, head/scalp atraumatic and moist oral mucous membranes HEENT Narrative: Moderate hearing loss, Mallampati is 2, no thrush Eyes PERRL and conjunctivae normal Eyes Narrative: No scleral icterus Neck no lymphadenopathy and supple Neck Narrative: Trachea midline, no thyroid enlargement Resp normal respiratory effort, no retractions, no use of accessory muscles and clear to auscultation bilaterally Resp Narrative: Diminished diffusely but clear Auscultation: Negative for rales, rhonchi or wheezes Cardio regular rate, regular rhythm, S1 normal heart sound, S2 normal heart sound, no rub, no gallops and no clicks; Negative for no murmurs Cardio Narrative: 3 out of 6 systolic murmur GI normal to inspection, nondistended, normoactive bowel sounds, soft to palpation and non-tender Extremity Extremity Narrative: Trace to 1+ bilateral lower extremity edema, no cyanosis or clubbing Skin no rashes or lesions noted, no wounds, skin turgor normal, no jaundice, no petechiae and no mottling Skin Narrative: Skin is pale but no significant lesions are noted Neuro oriented x3, CN's II-XII intact bilaterally, moves all extremities and no focal motor deficits Speech: speech normal Psych affect normal Psych Narrative: Very pleasant Weight / BMI Weight Weight: 66.7 kg Body Mass Index (BMI) 27.7 ABG / Lab / Microbiology Data 06/03/23 05:59 06/03/23 05:59 Laboratory: Laboratory Results - last 24 hr 06/03/23 05:59: WBC 5.4, RBC 3.81 L, Hgb 12.0 L, Hct 37.3 L, MCV 97.9 H, MCH 31.5, MCHC 32.2, RDW Std Deviation 58.8 H, RDW Coeff of Jaciel 16.3 H, Plt Count 165, MPV 9.7, Immature Gran % (Auto) 0.200, Neut % (Auto) 65.2, Lymph % (Auto) 22.1, [place] % (Auto) 12.3 H, Eos % (Auto) 0.0, Baso % (Auto) 0.2, Absolute Neuts (auto) 3.5, Absolute Lymphs (auto) 1.19, Nucleated RBC % 0, Sodium 143, Potassium 3.5, Chloride 109 H, Carbon Dioxide 28.0, Anion Gap 6, BUN 21 H, Creatinine 0.72, Estim Creat Clear Calc 43.58, Est GFR (MDRD) Af Amer 136, Est GFR (MDRD) Non-Af 112, BUN/Creatinine Ratio 29.4 H, Glucose 106, Calcium 8.2 L Microbiology: Microbiology 06/01/23 07:59 Urine, Clean Catch Urine Culture - Final Mixed Gram Positive Organisms 06/01/23 07:39 Mucosa - Nasopharyngeal SARS-CoV-2, Influenza & RSV (PCR) - Final SARS-CoV-2 (COVID 19 PCR) D/C Instructions Discharge Diet: Low fat / Low cholesterol Discharge Activity: Return to Normal Activity Return to work on: 06/12/23 Meaningful Use Info Meaningful Use Diagnoses (Choose all that apply): None applicable Discharge Plan Admission Admit Date/Time: 06/01/23 10:03 Primary Reason for Your Visit: Generalized weakness/fall Attending Provider: Melva Wheeler Primary Care Provider: Gloria Hazel Instructions Additional Instructions / Restrictions: 1. Please continue to use your incentive spirometer and Acapella while at home for the next 2 weeks 2. You will need strict isolation until 06/04/2023 and please wear a mask in a public environment or with people until 06/10/2023 3. Complete Decadron as ordered Discharge Orders/Prescriptions Prescriptions: New dexamethasone 4 mg Tablet 6 mg PO DAILY Qty: 7 0RF Continued multivitamin [Daily Multi-Vitamin] Tablet 1 tab PO DAILY finasteride 1 mg tablet 5 mg PO DAILY spironolactone 25 mg tablet 25 mg PO DAILY Qty: 30 12RF Prolia 60 mg/mL syringe 60 mg subcut [id number] Qty: 1 1RF tamsulosin 0.4 MG capsule 0.4 mg PO DAILY@1800 trazodone 100 mg tablet 150 mg PO QHS Simponi ARIA 12.5 mg/mL Solution 12.5 mg IV [id number] Patient Comments: PT GOES TO GET INJECTION EVERY 8 WEEKS CAN NOT REMEMBER LAST SHOT NEXT DUE IS IN OCTOBER gabapentin 300 mg capsule 300 mg PO TID PRN PRN (Reason: NERVE PAIN) Patient Comments: Take 1 (one) Capsule by mouth three times daily, as needed ergocalciferol (vitamin D2) [Vitamin D2] 1,250 mcg (50,000 unit) Capsule 1,250 mcg PO Q7D Qty: 0 0RF furosemide 40 mg Tablet 40 mg PO DAILY 30 Days Qty: 30 0RF polysaccharide iron complex [Ferrex 150] 150 mg iron Capsule 150 mg PO DAILY 30 Days Qty: 30 0RF Hold Instructions: MD Ordered acetaminophen 500 mg Tablet 1,000 mg PO Q8 Qty: 0 0RF baclofen 10 mg Tablet 10 mg PO TID 30 Days Qty: 90 0RF Xarelto 15 mg Tablet 15 mg PO DINNER 30 Days Qty: 30 0RF methotrexate sodium 2.5 mg tablet 20 mg PO QWEEK sulfasalazine 500 mg tablet,delayed release (DR/EC) 0.5 g PO Q12H tramadol 50 mg tablet 50 mg PO Q8H PRN (Reason: pain) atorvastatin [Lipitor] 40 mg tablet 40 mg PO QHS Qty: 90 3RF amiodarone 200 mg tablet 200 mg PO DAILY Qty: 90 3RF Held prednisone 1 mg tablet 1 mg PO DAILY Qty: 100 1RF Hold Instructions: Restart after your Decadron is complete Patient Comments: 3mg Rx Instructions: 3.5 mg daily for 3 weeks (with 2.5 mg daily) then 3 mg daily Referrals / Follow Up: Gloria Hazel MD [Primary Care Provider] - Within 1 Week Disposition Disposition (needs filled in before D/C Order can be placed): Home, Self Care Charges/Coding Visit Charges Inpatient E&M: 20735 Disch Hosp >30min
--- NOTE | 2023-06-03 13:20 | PN.HOSP_ITS ---
Reason for Visit Reason for Visit: This is a late entry note with date of service of 06/02/2023 Fall/weakness Subjective Subjective No issues overnight. Patient states overall he is feeling better. Weakness seems to be improved. No complaints at this time other than his IV is painful and asked if we could move it. I told him I would discuss this with nursing. Objective Data Objective Data Vital Signs: Vital Signs Temp Pulse Resp BP Pulse Ox O2 Del Method O2 Flow Rate 97.9 F 73 18 127/68 H 97 Room Air 1 06/03/23 10:10 06/03/23 10:10 06/03/23 10:10 06/03/23 10:10 06/03/23 11:00 06/03/23 10:10 06/02/23 10:07 Oxygen Flow Rate (L/min) 1 Oxygen Delivery Method Room Air Weight: 66.7 kg Body Mass Index (BMI) 27.7 Intake & Output: Intake and Output for Last 24 Hours 06/01/23 06/02/23 06/03/23 23:59 23:59 23:59 Intake Total 500 / 500 600 / 600 400 / 400 Output Total 750 / 950 200 / 200 Balance 500 / 500 -150 / -350 200 / 200 Lab / Micro Data 06/03/23 05:59 06/03/23 05:59 Labs: Laboratory Results - last 24 hr 06/03/23 05:59: WBC 5.4, RBC 3.81 L, Hgb 12.0 L, Hct 37.3 L, MCV 97.9 H, MCH 31.5, MCHC 32.2, RDW Std Deviation 58.8 H, RDW Coeff of Jaciel 16.3 H, Plt Count 165, MPV 9.7, Immature Gran % (Auto) 0.200, Neut % (Auto) 65.2, Lymph % (Auto) 22.1, [place] % (Auto) 12.3 H, Eos % (Auto) 0.0, Baso % (Auto) 0.2, Absolute Neuts (auto) 3.5, Absolute Lymphs (auto) 1.19, Nucleated RBC % 0, Sodium 143, Potassium 3.5, Chloride 109 H, Carbon Dioxide 28.0, Anion Gap 6, BUN 21 H, Creatinine 0.72, Estim Creat Clear Calc 43.58, Est GFR (MDRD) Af Amer 136, Est GFR (MDRD) Non-Af 112, BUN/Creatinine Ratio 29.4 H, Glucose 106, Calcium 8.2 L Micro: Microbiology 06/01/23 07:59 Urine, Clean Catch Urine Culture - Final Mixed Gram Positive Organisms 06/01/23 07:39 Mucosa - Nasopharyngeal SARS-CoV-2, Influenza & RSV (PCR) - Final SARS-CoV-2 (COVID 19 PCR) Rhythm Strip Rhythm Strip: A-fib Rate: 84 Ectopy: None Physical Exam Const alert, oriented x3, no apparent distress, average body habitus and well nourished; Negative for healthy appearing Constitutional Narrative: Elderly, white male, walking back with assistant therapy aide from the bathroom, appears comfortable and nontoxic, currently wearing 1 L nasal cannula and sats are 98% HEENT normocephalic, head/scalp atraumatic and moist oral mucous membranes HEENT Narrative: No thrush, mouth Resp normal respiratory effort, no retractions, no use of accessory muscles and clear to auscultation bilaterally Resp Narrative: Diminished diffusely but clear Auscultation: Negative for rales, rhonchi or wheezes Cardio regular rate, regular rhythm, S1 normal heart sound, S2 normal heart sound, no rub, no gallops and no clicks; Negative for no murmurs Cardio Narrative: 3 out of 6 systolic murmur GI normal to inspection, nondistended, normoactive bowel sounds, soft to palpation and non-tender Extremity Extremity Narrative: Trace to 1+ bilateral lower extremity edema, no cyanosis or clubbing Neuro oriented x3, moves all extremities and no focal motor deficits Speech: speech normal Psych affect normal Psych Narrative: Very pleasant Assessment & Plan Assessment/Plan (1) Hypoxia: (2) Weakness: (3) COVID-19: PLAN: Plan Acute hypoxia secondary to COVID-19 infection -Has been weaned to 1 L nasal cannula and oxygen saturation is at 97% -Symptoms started on 05/31/2023--> will need strict isolation through 06/04/2023 and wear a mask in public environments through 06/10/2023 -Continued acute on day 2 of 10 -CRP was not markedly elevated and patient does not meet criteria for baricitinib -As needed albuterol -I-S -Acapella -Antitussives ordered -Supportive care Falls/debility/generalized weakness -PT/OT are following and they do not feel he needs any therapy at discharge -Patient does live home alone -Case management and social work consulted to assist with discharge planning History of lumbar spine compression fractures/rib fractures -Notable at L1 and L5 with recent kyphoplasty -Also endplate damage noted at L2 and L3 with uncertain chronicity -As needed Tylenol available Osteoporosis -Patient is on Prolia at baseline -Recheck vitamin D level -Follows with Dr. 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 Unsuccessful PCI of [employer] 08/06/2020 -Continue statin -Continue aspirin 81 mg -Continue home amiodarone -Continue home Lasix -Continue home Aldactone -No signs currently of acute decompensated heart failure -Last echocardiogram done on 09/24/2022 shows an EF of 50% with hypokinetic apex and mild left atrial enlargement along with moderate aortic stenosis Insomnia -Continue home trazodone Rheumatoid arthritis -Patient takes as needed prednisone 10 mg daily as needed -Will be on Decadron while hospitalized and likely discharge -Will continue home Simponi at discharge Chronic peripheral edema -Continue home diuretics -Eber wrap's ordered while hospitalized BPH with obstruction -Continue home finasteride -Continue home Flomax Insomnia -Continue home trazodone History of tobacco abuse -Encouraged ongoing cessation DVT prophylaxis -Continue home Xarelto CODE STATUS -DNR CCA with no intubation as verified on admission Charges/Coding Visit Charges Inpatient E&M: 50440 Subs Hosp L2
== END 2023-06-03 15:55 | disposition home or self-care (01) | DRG 178 ==
LOC: ED 10:12 → MS3 12:04
PROVIDERS: Admitting Provider Internal Medicine; Emergency Provider Emergency Medicine; PCP Family Medicine; Visit Provider Internal Medicine
DX: U07.1 COVID-19 (principal); I50.32 Chronic diastolic (congestive) heart failure; N13.8 Other obstructive and reflux uropathy; I11.0 Hypertensive heart disease with heart failure; I48.0 Paroxysmal atrial fibrillation; M06.9 Rheumatoid arthritis, unspecified; I35.0 Nonrheumatic aortic (valve) stenosis; I25.10 Atherosclerotic heart disease of native coronary artery without angina pectoris; E78.5 Hyperlipidemia, unspecified; R53.1 Weakness; R53.81 Other malaise; R09.02 Hypoxemia; N40.1 Benign prostatic hyperplasia with lower urinary tract symptoms; R35.1 Nocturia; R35.0 Frequency of micturition; M81.0 Age-related osteoporosis without current pathological fracture; Z66 Do not resuscitate; G47.00 Insomnia, unspecified; Z79.52 Long term (current) use of systemic steroids; Z79.01 Long term (current) use of anticoagulants; Z87.891 Personal history of nicotine dependence; Z95.5 Presence of coronary angioplasty implant and graft
CPT/HCPCS: 36415; 71045; 80048; 80053; 81001; 82306; 82550; 83690; 83735; 84100; 84439; 84443; 84484; 85025; 87086; 87088; 87631; 93005; 94640; 94668; 97161; 99282

== ENCOUNTER 2023-06-22 08:55 | Outpatient (CLI) | payer MEDICARE, SELFPAY ==
[2023-06-22 09:07] VITALS: BP 100/56; PULSE 75; RESP 16; TEMP 36.3; O2SAT 94; BMI 25.1
[2023-06-22] MEDS: Cosyntropin 0.25 MG Vial IM (09:22)
[2023-06-22 10:26] VITALS: BP 114/55; PULSE 69; RESP 16; TEMP 36.4; O2SAT 94
== END 2023-06-22 08:56 | disposition home or self-care (01) ==
LOC: MEDOUTP 08:56
PROVIDERS: PCP Family Medicine; Referring Provider Internal Medicine Endocrinology, Diabetes & Metabolism; Visit Provider Internal Medicine Endocrinology, Diabetes & Metabolism
DX: E27.49 Other adrenocortical insufficiency (principal)
CPT/HCPCS: 36415; 82533; 96372; J0834

== ENCOUNTER 2023-07-21 14:50 | Outpatient (CLI) | payer MEDICARE, SELFPAY ==
[2023-07-21 14:57] VITALS: BP 103/54; PULSE 79; RESP 16; TEMP 36.9; O2SAT 94; BMI 26.4
[2023-07-21] MEDS: 0.9% NaCl Peripheral Flush Adult/Peds IV (15:11)
[2023-07-21] MEDS: 0.9% NaCl IVPB Med Flush (250 mL) 15 ML IV (15:11)
[2023-07-21] MEDS: GOLIMUMAB IV (15:27)
[2023-07-21] MEDS: NORMAL SALINE 0.9% IV (15:27)
[2023-07-21 16:15] VITALS: BP 98/53; PULSE 64; RESP 16; TEMP 36.4; O2SAT 93
--- OUTSIDE RECORDS SUMMARY | 2023-07-21 18:01 | XMS RPT_ITS | CCD ---
Author Name Unknown Address [address] [place] [address] Organization [facility] Care Team Providers Care [employer] Name Role Phone Gloria Hazel Primary Care [...] 17:56-0400 Body temperature 97.81 [degF] María Ayan HR ANALYST.NETWORKING TECHNICIAN Work Phone: [facility] 12-27-2022 17:56-0400 Diastolic blood pressure 66 mm[Hg] María Ayan HR ANALYST.NETWORKING TECHNICIAN Work Phone: [facility] 12-27-2022 17:56-0400 Heart rate 72 /min María Ayan HR ANALYST.NETWORKING TECHNICIAN Work Phone: [facility] 12-27-2022 17:56-0400 Respiratory rate 16 /min María Ayan HR ANALYST.NETWORKING TECHNICIAN Work Phone: [facility] 12-27-2022 17:56-0400 SaO2% (BldA) [Mass fraction] 95 % María Ayan HR ANALYST.NETWORKING TECHNICIAN Work Phone: [facility] 12-27-2022 17:56-0400 Systolic blood pressure 102 mm[Hg] María Ayan HR ANALYST.NETWORKING TECHNICIAN Work Phone: [facility] 10-27-2021 14:52-0400 Body temperature 99.3 [degF] Lucero Mcwilliams HR ANALYST.NETWORKING TECHNICIAN Work Phone: [facility] 10-27-2021 14:52-0400 Body weight 67.5 kg Lucero Mcwilliams HR ANALYST.NETWORKING TECHNICIAN Work Phone: [facility] 10-27-2021 14:52-0400 Diastolic blood pressure 70 mm[Hg] Lucreo Mwcilliams HR ANALYST.NETWORKING TECHNICIAN Work Phone: [facility] 10-27-2021 14:52-0400 Heart rate 76 /min Lucero Mcwilliams HR ANALYST.NETWORKING TECHNICIAN Work Phone: [facility] 10-27-2021 14:52-0400 Respiratory rate 18 /min Lucero Mcwilliams HR ANALYST.NETWORKING TECHNICIAN Work Phone: [facility] 10-27-2021 14:52-0400 SaO2% (BldA) [Mass fraction] 97 % Lucero Mcwilliams APRN.CNP Work Phone: [facility] 10-27-2021 14:52-0400 Systolic blood pressure 122 mm[Hg] Lucero Mcwilliams APRN.CNP Work Phone: [facility] Encounters Encounter Date Encounter Type Care Provider Facility Start: 12-27-2022 End: 12-27-2022 ambulatory GLORIA KODAK HAZEL Facility:[facility] Start: 12-27-2022 End: 12-27-2022 Patient encounter procedure María Ayan EDMONDSON.VERITO Work Phone: [facility] Plan of Treatment Date Care Activity Detail Author Start: 08-17-2023 DIABETES SCREEN DIABETES SCREEN [facility] Start: 01-27-2023 Influenza vaccination INFLUENZA (#1) [facility] Start: 05-29-2022 ADVANCE DIRECTIVE DISCUSSION ADVANCE DIRECTIVE DISCUSSION [facility] Start: 05-29-2022 DEPRESSION ASSESSMENT DEPRESSION ASSESSMENT [facility] Start: 10-27-2021 End: 11-10-2021 Influenza virus A and B RNA and SARS-CoV-2 (COVID-19) N gene panel - Respiratory specimen by UJDI with probe detection COVID WITH FLUA+B, ROUTINE Microbiology Routine URI, acute Viral illness Expected: 10/27/2021, Expires: 11/10/2021 [facility] Work Phone: Payers Date Payer Category Payer Medicare MMO MEDICARE MMO MEDADVANTAGE O [id number] 2020-Present [phone] [address] [place] [address] O [id number] 2020 Medicare MMO MEDICARE MMO MEDADVANTAGE O [id number] 2020-Present [phone] [address] [place] [address] [facility] [id number] 2020 Unknown [id number] Social History Date Type Detail Facility Start: 04-24-2016 Tobacco smoking stat us NHIS Ex-smoker [facility] Start: 04-24-2016 Tobacco use and exposure Smokeless tobacco non-user [facility] Start: 10-27-2021 End: 12-27-2022 Alcohol intake Not Asked [facility] Start: 1940 Sex Assigned At Not on file [facility] Start: 10-17-2021 End: 10-27-2021 Exposure to SARS-CoV-2 (event) Not sure [facility] Work Phone: History of tobacco use Current smoker [facility] Start: 03-02-2021 End: 12-27-2022 History of Social function [facility] Start: 03-02-2021 End: 12-27-2022 Tobacco use panel [facility] National Score (1-100), lower number is lower risk Not on file [facility] Clinical Notes 08-13-2020 to 12-27-2022 Patient María Goodwin, DEBO.NETWORKING TECHNICIAN - 12/27/2022 6:16 PM EDTTelephone Encounter - Faustina Sheldon LPN - 10/28/2021 10:02 AM EDTTelephone Encounter - Tonio Johnson MD - 10/28/2021 7:54 AM EDT Note Date & Type Note Facility 12-27-2022 Note HNO ID: [id number] Author: Cami Nick RT(R) Service: Radiology Author [...] Nick, RT(R) December 27, 2022 6:22 PM [facility] 12-27-2022 Note HNO ID: [id number] Author: María Haas APRN.NETWORKING TECHNICIAN Service: ? Author Type: Nurse Practitioner Type: Progress Notes Filed: 12/27/2022 7:34 PM Note Text: Subjective The history is provided by the patient and a relative. No solar field installation crew member was used. HPI Bryce Rodriguez is a [...] have confirmed and edited as necessary, the [facility] Review of Systems Constitutional: Negative for [...] warranting prompt ER evaluation. María Haas APRN.CNP [facility] 12-27-2022 Instructions María Haas APRN.CNP - 12/27/2022 7:08 PM EDT Encourage deep breaths Tylenol (generic acetaminophen) 500 mg-2 tabs every 8 hrs as needed for pain Ice Heat Follow up in one week with Dr. Hazel * Seek medical care immediately, call 911, go to ER if you have chest pain, difficulty breathing, shortness of breath, inability to swallow. documented in this encounter [facility] 12-27-2022 History of Present illness Narrative Images from the original note were not included. Subjective The history is provided by the patient and a relative. No solar field installation crew member was used. HPI Bryce Rodriguez is a [...] have confirmed and edited as necessary, the [facility] Review of Systems Constitutional: Negative for [...] María Haas APRN.VERITO documented in this encounter [facility] 10-28-2021 Miscellaneous Notes Phone call placed [...] ER if severe. documented in this encounter [facility] 10-27-2021 Instructions Lucero Mcwilliams APRN.VERITO - [...] follow-ups on file. documented in this encounter [facility] 10-27-2021 History of Present illness Narrative This note was created using [employer]Learn[employer]. Subjective Bryce Rodriguez is a 80 year old male. 80 year old male with PMH irregular heart beat, hyperlipidemia, RA and cardiac stents (on Xarelto) presents requesting COVID testing. Acute onset Monday night +cough +nasal congestion +fever + chills +body aches + malaise Denies N/V/D Denies skin rash or lesions. States that he has had COVID vaccine. He works at [employer], states his last day was October 09. Unknown if he was in direct contact with ill persons. Denies using homeopathic or OTC medications DE ALCHOLIZER. Denies tobacco usage. The history is provided by the patient. No solar field installation crew member was used. URI He complains of cough. [...] WITH FLUA+B, ROUTINE-obtained and pending Lucero Mcwilliams APRN.NETWORKING TECHNICIAN documented in this encounter [facility] 08-17-2020 Note HNO ID: [id number] Author: Sara (Rn) ELROY Edge Service: Care Management Author Type: Registered Nurse Type: Care Mgt Progress Note Filed: 08/17/2020 2:43 PM Note Text: CARE MANAGEMENT DISCHARGE NOTE SERVICE DATE: 08/17/2020 SERVICE TIME: 2:28 PM LOS: 1 day Admission Date: 08/12/2020 DISCHARGE ARRANGEMENT (list agency and phone number) Discharge Arrangement: longterm facility Was an expedited discharge program used?: Yes Type: (MMO Waiver) Provider Name: Jerrod GALVEZ CAREGIVER ASSESSMENT: HANDOFF COMMUNICATION: Handoff to: Primary Care Physician Primary Care Physician Name/Phone: Gloria Hazel MD TRANSPORTATION ARRANGEMENTS: Transportation Arrangements: Ambulance/[facility] Transportation Agency and Phone #:: [facility] ( [facility] ) [phone] / [phone] Date of Trip: 08/17/20 Time of Trip: 1500 Type of Service: Wheelchair Is Patient Medicaid Pending?: No Discussion of financial coverage occurred with: Patient [employer] 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 [facility] is transporting patient via WC at 15:00. Patient and his dtr Melanie have been notified. RN aware of discharge time. Orders have been faxed and facility notified. SIGNATURE: Sara Edge RN PATIENT NAME: Bryce Rodriguez DATE: August 17, 2020 TIME: 2:28 PM PAGER/CONTACT #: [phone] [facility] 08-17-2020 Note HNO ID: [id number] Author: Sara Lee) ELROY Edge Service: Care Management Author Type: Registered Nurse Type: Care Mgt Progress Note Filed: 08/17/2020 10:48 AM Note Text: CARE MANAGEMENT PROGRESS NOTE SERVICE DATE: 08/17/2020 SERVICE TIME: 10:45 AM LOS: 1 day Epic notes reviewed. PT/OT evals recommending SNF at discharge and patient agreeable. Has been accepted at [facility]. Precert waivered and facility has bed available today. Covid test and requested updates sent. Anticipate discharge today. SIGNATURE: Sara Edge RN PATIENT NAME: Bryce Rodriguez DATE: August 17, 2020 TIME: 10:45 AM PAGER/CONTACT #: [phone] [facility] 08-17-2020 Note HNO ID: [id number] Author: Macrina Shea Service: Hospital Medicine Author [...] PMHx of HTN, BPH, CAD, Afib Recent AK, RA admit 08/12/20 for syncope 08/06/20 cardiac cath: CAD. Successful PCI on OM2 with GAGE. Unsuccessful PCI of REHAB AID of LAD Recommendation: he may need re attempt at PCI of REHAB AID of LAD or referral for ARELLANO to LAD Cardiology had evaluated him and recommended Holter monitor to assess for conduction deficits Cardovascular surgery had evaluated patient. Per Dr. Kyree Gardner, Upon review of the catheterization, it appears that patient has a stent in the OM and REHAB AID of the LAD. He does have some [...] 110/59 No lightheadedness Plan[facility] Medication and Non-Pharmacologic VTE Prophylaxis/Anticoagulants Anticoagulant [...] indicated (fl,oh) 08/12/202129 activity - mobilize patient (co,co) VTE Prophylaxis: SIGNATURE: Macrina Shea DO PATIENT NAME: Bryce Rodriguez DATE: August 17, 2020 TIME: PAGER: [facility] 08-16-2020 Note HNO ID: [id number] Author: Macrina Shea Service: Hospital Medicine Author [...] PMHx of HTN, BPH, CAD, Afib Recent AK, RA admit 08/12/20 for syncope 08/06/20 cardiac cath: CAD. Successful PCI on OM2 with GAGE. Unsuccessful PCI of REHAB AID of LAD Recommendation: he may need re attempt at PCI of REHAB AID of LAD or referral for ARELLANO to LAD Cardiology had evaluated him and recommended Holter monitor to assess for conduction deficits Cardovascular surgery had evaluated patient. Per Dr. Kyree Gardner, Upon review of the catheterization, it appears that patient has a stent in the OM and REHAB AID of the LAD. He does have some [...] 08/12/202129 vte non-pharmacologic prophylaxis - none indicated (co,oh) 08/12/202129 activity - mobilize patient (co,co) VTE Prophylaxis: SIGNATURE: Macrina Shea DO PATIENT NAME: Bryce Rodriguez DATE: August 16, 2020 TIME: 12:19 PM PAGER: [facility] 08-15-2020 Note HNO ID: [id number] Author: Paul Tony Service: Hospital Medicine Author [...] for SNF [facility] and will Likely be on [...] 08/12/202129 vte non-pharmacologic prophylaxis - none indicated (co,co) 08/12/202129 activity - mobilize patient ([place], [place]) VTE Prophylaxis: VTE prophylaxis appropriate SIGNATURE: Paul Tony MD PATIENT NAME: Bryce Rodriguez DATE: August 15, 2020 TIME: 10:08 AM [facility] 08-15-2020 Note HNO ID: [id number] Author: Interface Note Service: ? Author Type: ? Type: Progress Notes Filed: 08/15/2020 3:06 AM Note Text: Epic Scheduled Downtime: 08/15/2020 1:00:00 AM to 08/15/2020 2:48:00 AM [facility] 08-14-2020 Note HNO ID: [id number] Author: Fernando Guidry Service: Hospital Medicine Author [...] PT/OT recommend SNF at DC Plan for [facility] but no bed available till Monday. Will need rpt COVID test ordered over weekend for discharge on monday ? SIGNATURE: Fernando Guidry MD PATIENT NAME: Bryce Rodriguez DATE: August 14, 2020 TIME: 2:55 PM PAGER: [facility] 08-14-2020 Note HNO ID: [id number] Author: Cindy Lee) ELROY Montes Service: Care Management Author Type: Registered Nurse Type: Care Mgt Progress Note Filed: 08/14/2020 1:46 PM Note Text: CARE MANAGEMENT PROGRESS NOTE SERVICE DATE: 08/14/2020 SERVICE TIME: 1:45 PM LOS: 1 day Spoke with pt at the bedside. Therapy recs SNF. Pt would like SNF- [facility]. They are able to accept pt. No bed available until Monday. MMO Waiver- per SNF. Pt is agreeable to w/c transport at d/c. CM to follow. SIGNATURE: Cindy Montes RN PATIENT NAME: Bryce Rodriguez DATE: August 14, 2020 TIME: 1:44 PM PAGER/CONTACT #: [phone] [facility] 08-13-2020 Note HNO ID: [id number] Author: Fernando Guidry Service: Hospital Medicine Author [...] August 13, 2020 TIME: 5:28 PM PAGER: [facility] 08-13-2020 Note HNO ID: [id number] Author: Sara (Rn) ELROY Edge Service: Care Management Author Type: Registered Nurse Type: Care Mgt Initial Assessment Filed: 08/13/2020 3:19 PM Note Text: CARE MANAGEMENT: ASSESSMENT AND DISCHARGE PLAN SERVICE DATE: August 13, 2020 SERVICE TIME: 3:14 PM PRIMARY CARE PHYSICIAN: Gloria Hazel MD ADMISSION STATUS: Observation Needs Prior to Discharge: OT/PT Evaluation;Discharge Prescriptions;To Be Determined;Facility or Agency Choices MEDICAL: MMO MEDADVANTAGE O 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 Last discharge within 30 days: No Advance Directive: Current Advance Directive: Health Care Power of Painter Maintenance In Chart: No Cio Attempted to Assist with AD Completion: Yes [...] Contact Resources: Family Family Name/Phone: Melanie (dtr) [phone] Caregiver AssessmentCaregiver is ready, willing and able [...] Completely I feel financially burdened by my ign-hd-bytegm expenses for my prescription medication:: 0 - Disagree Mostly Risk Score: 0 Patient is categorized as: Low risk < 2 Are you interested in bedside delivery of your medications? No Is Patient Psychosocially Complex?: No ASSESSMENT AND PLAN: Medical Needs: Medical Needs: Two or more chronic diseases;Fall risk or frequent falls Psychosocial Needs: Psychosocial Needs: None FREEDOM OF CHOICE EXPLAINED: [place] of Choice Given: No Reason Not Given: No placements necessary POTENTIAL TRANSITION PLANS Correction Facility/Intermediate Care Facility From home alone. 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 Has walker and cane. (+) PCP. Fills scripts at [facility]. Was recently at [facility] and then discharged home with [facility]. Will need PT/OT evals as anticipate may need SNF at discharge. If SNF recommended patient wants referral to [facility]. SIGNATURE: Sara Edge RN PATIENT NAME: Bryce Rodriguez DATE: August 13, 2020 TIME: 3:14 PM PAGER/CONTACT #: [phone] [facility] 08-13-2020 Note HNO ID: [id number] Author: Sara (Elroy) ELROY Edge Service: Care Management Author Type: Registered Nurse Type: Care Mgt Progress Note Filed: 08/13/2020 3:04 PM Note Text: CARE MANAGEMENT PROGRESS NOTE SERVICE DATE: 08/13/2020 SERVICE TIME: 3:03 PM LOS: 1 day Observation letter given to patent on 08/13/2020 SIGNATURE: Sara Edge RN PATIENT NAME: Bryce Rodriguez DATE: August 13, 2020 TIME: 3:03 PM PAGER/CONTACT #: [phone] [facility] Diagnosis Rib pain on right side- Primary Chest pain, unspecified Closed fracture of multiple ribs of right side, initial encounter [facility] Diagnostic Procedure Only (Urgent) - Closed Specialty Diagnoses / Procedures Referred By Contac t Referred To Contact XR IMAGING Diagnoses Rib pain on right side Procedures XR RIBS/CHEST 3V AP RIB/OBLS/CXR RIGHT RADEX RIBS UNI W/POSTEROANT CH MINIMUM 3 VIEWS María Haas, DEBO.NETWORKING TECHNICIAN [id number] [id number] Xr Imaging Referral ID Status Reason Start Date Expiration Date V isits Requested Visits Authorized [id number] Closed Auto-Generate d Referral 12/27/2022 01/26/2024 1 1 [facility] Summary Purpose Family History No Family History Records FoundNo Family History Records FoundNo Family History Records Found Advance Directives No Advanced Directives Records FoundDocuments on File Type Date Recorded Patient Head Of Maintenance Expl anation Advance Directive(s) 08/13/2020 9:59 AM Advance Directive(s) 08/13/2020 3:13 PM Advance Directive(s) 08/12/2020 3:51 PM Documents on File Type Date Recorded Patient Head Of Maintenance Expl anation Advance Directive(s) 08/13/2020 3:13 PM [...] DATE CREATED AUTHOR AUTHOR'S ORGANIZ ATION 09/21/2020 [facility] DATE CREATED AUTHOR AUTHOR'S ORGANDARRICK ATION 12/28/2022 [facility] Source Comments (unrecognize d section and content) In the event this informatio n is protected by the Federal Confidentiality of Alcohol and Drug Abuse Patient Records regulations: The Federal rules restrict any use of the information to criminally investigate or prosecute any alcohol or drug abuse patient.[facility] Hospital[facility] the event this information is protected by the Federal Confidentiality of Alcohol and Drug Abuse Patient Records regulations: The Federal rules restrict any use of the information to criminally investigate or prosecute any alcohol or drug abuse patient.[facility] HospitalIn the event this information is protected by the Federal Confidentiality of Alcohol and Drug Abuse Patient Records regulations: The Federal rules restrict any use of the information to criminally investigate or prosecute any alcohol or drug abuse patient.[facility] Reason for Visit (unrecogniz ed section and content) Reason Comments Results COVID+ Reason Comments Rib Injury right side rib pain and bruising with wheezing after fall x days Care Teams (unrecognized sec tion and content) [employer] Relationship Specialty Start Date End Date Gloria Hazel [address] [facility] [address] [place] [address] PCP - General 06/02/04 [employer] Relationship Specialty Start Date End Date Gloria Hazel [address] [place] [address] PCP - General 06/02/04 FOR RECORDS PERTAINING [...] BE BASED ON THE PRIMARY CLINICAL RECORDS. [facility] [employer] [facility]. provides no warranty or guarantee of the accuracy or completeness of information in this document.
== END 2023-07-21 14:51 | disposition home or self-care (01) ==
LOC: MEDOUTP 14:50
PROVIDERS: PCP Family Medicine; Referring Provider Internal Medicine Rheumatology; Visit Provider Internal Medicine Rheumatology
DX: M05.79 Rheumatoid arthritis with rheumatoid factor of multiple sites without organ or systems involvement (principal)
CPT/HCPCS: 96365; J7050; A4216; J1602

== ENCOUNTER → 2023-08-01 | Outpatient (CLI) | payer MEDICARE, SELFPAY ==
[2023-08-01 17:35] LABS: Absolute Lymphocyte Count 2.39 X10^3/uL (0.83-4.51); Absolute Neutrophil Count 4.5 X10^3/uL (2.0-7.7); Basophil# 0.05 X10^3/uL; Basophil% 0.6 % (0-1); Eosinophil# 0.41 X10^3/uL; Hematocrit 36.3 % (40-54); Hemoglobin 11.9 g/dL (13.0-16.5); Lymphocyte # 2.39 X10^3/ul (0.83-4.51); Lymphocyte % 29.4 % (19-41); Mean Corp Hgb Conc 32.8 g/dL (32-36); Mean Corpuscular Hgb 33.2 pg (27.0-32.0); Mean Corpuscular Volume 101.4 fL (80-94); Mean Platelet Vol. 9.4 fl (6.2-12.0); Monocyte# 0.77 X10^3/uL; Monocyte% 9.5 % (0-10); NRBC Flagged by Analyzer 0 % (0-5); Neutrophil % 55.4 % (47-70); Platelet Count 206 K/mm3 (150-450); RBC Distribution Width CV 15.7 % (11.6-14.6); RBC Distribution Width SD 58.6 fl (35.1-43.9); Red Blood Count 3.58 M/mm3 (4.6-6.2); White Blood Count 8.1 K/mm3 (4.4-11.0)
[2023-08-01 18:01] LABS: ALB/GLOB Ratio 1.2 RATIO (0.9-2.4); AST(SGOT) 26 U/L (15-37); Alanine Aminotransfer ALT/SGPT 25 U/L (16-61); Albumin, Serum 3.6 g/dL (3.2-5.0); Alkaline Phosphatase 82 U/L (45-117); Anion Gap 5 (5-15); BUN 15 mg/dL (7-18); BUN/Creat Ratio 13.3 RATIO (10-20); Calcium,Total 8.6 mg/dL (8.5-10.1); Chloride 102 mmol/L (98-107); Creatinine, Serum 1.13 mg/dL (0.70-1.30); EST Glomerular Filtration Rate 66 mL/min (>60); Est Glom Filt Rate - Afr Amer 80 mL/min (>60); Globulin 3.1 g/dL (2.2-4.2); Glucose 99 mg/dL (74-106); Potassium 3.9 mmol/L (3.5-5.1); Protein, Total 6.7 g/dL (6.4-8.2); Sodium Level 140 mmol/L (136-145)
== END | disposition home or self-care (01) ==
LOC: MTLAB 16:51
PROVIDERS: PCP Family Medicine; Referring Provider Internal Medicine Rheumatology; Visit Provider Internal Medicine Rheumatology
DX: M05.70 Rheumatoid arthritis with rheumatoid factor of unspecified site without organ or systems involvement (principal); I50.9 Heart failure, unspecified; I48.0 Paroxysmal atrial fibrillation; M17.0 Bilateral primary osteoarthritis of knee; M21.41 Flat foot [pes planus] (acquired), right foot; M47.897 Other spondylosis, lumbosacral region; G47.00 Insomnia, unspecified; I87.2 Venous insufficiency (chronic) (peripheral); N40.1 Benign prostatic hyperplasia with lower urinary tract symptoms; Z79.899 Other long term (current) drug therapy
CPT/HCPCS: 36415; 80053; 85025

== ENCOUNTER → 2023-09-14 | Outpatient (CLI) | payer MEDICARE, SELFPAY ==
--- NOTE | 2023-09-14 14:40 | RAD_ITS ---
STUDY: X-RAY - LEFT SHOULDER REASON FOR EXAM: Male, 82 years old. PAIN TECHNIQUE: 2 view(s) of the shoulder. COMPARISON: None. FINDINGS: There is cephalad migration of the humeral head consistent with rotator cuff pathology. Normal acromioclavicular joint. Normal acromion. Normal humeral head and visualized proximal humerus. The soft tissue structures are unremarkable. Normal visualized pulmonary apex. RAD/Shoulder min 2 Views IMPRESSION: Suspect rotator cuff pathology with superior displacement of the humeral head. MRI may be useful. Electronically Signed: Altaf Benoit MD at 0:02 EDT ,
--- NOTE | 2023-09-14 14:40 | RAD_ITS ---
STUDY: X-RAY - RIGHT SHOULDER REASON FOR EXAM: Male, 82 years old. PAIN TECHNIQUE: 2 view(s) of the shoulder. COMPARISON: None. FINDINGS: There is cephalad migration of the humeral head consistent with rotator cuff pathology. There is degenerative arthrosis of the acromioclavicular joint without inferior osseous spur formation. Normal acromion. Normal humeral head and visualized proximal humerus. Surgical anchors in the humeral head consistent with rotator cuff repair. The soft tissue structures are unremarkable. Normal visualized pulmonary apex. 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 MRI may be useful. Electronically Signed: Altaf Benoit MD at 0:03 EDT ,
== END | disposition home or self-care (01) ==
LOC: RAD 14:38
PROVIDERS: PCP Family Medicine; Referring Provider Anesthesiology Pain Medicine; Visit Provider Anesthesiology Pain Medicine
DX: M25.511 Pain in right shoulder (principal); M25.512 Pain in left shoulder
CPT/HCPCS: 73030

== ENCOUNTER 2023-09-25 14:53 | Outpatient (CLI) | payer MEDICARE, SELFPAY ==
[2023-09-25 15:24] VITALS: BP 105/53; PULSE 70; RESP 16; TEMP 36.2; O2SAT 94; BMI 24.7
[2023-09-25] MEDS: 0.9% NaCl Peripheral Flush Adult/Peds IV (15:33)
[2023-09-25] MEDS: NORMAL SALINE 0.9% IV (15:41)
[2023-09-25] MEDS: GOLIMUMAB IV (15:41)
[2023-09-25] MEDS: 0.9% NaCl IVPB Med Flush (250 mL) 15 ML IV (15:42)
[2023-09-25 16:31] VITALS: BP 101/46; PULSE 58; RESP 16; TEMP 36.1; O2SAT 94
== END 2023-09-25 14:54 | disposition home or self-care (01) ==
LOC: MEDOUTP 14:53
PROVIDERS: PCP Family Medicine; Referring Provider Internal Medicine Rheumatology; Visit Provider Internal Medicine Rheumatology
DX: M05.70 Rheumatoid arthritis with rheumatoid factor of unspecified site without organ or systems involvement (principal)
CPT/HCPCS: 96365; J7050; A4216; J1602

== ENCOUNTER → 2023-11-06 | Outpatient (CLI) | payer MEDICARE, SELFPAY ==
[2023-11-06 13:01] LABS: Absolute Lymphocyte Count 1.57 X10^3/uL (0.83-4.51); Basophil# 0.04 X10^3/uL; Basophil% 0.7 % (0-1); Eosinophil# 0.36 X10^3/uL; Eosinophils% 6.5 % (0-5); Hematocrit 40.1 % (40-54); Lymphocyte # 1.57 X10^3/ul (0.83-4.51); Lymphocyte % 28.4 % (19-41); Mean Corp Hgb Conc 32.4 g/dL (32-36); Mean Corpuscular Hgb 33.4 pg (27.0-32.0); Mean Corpuscular Volume 103.1 fL (80-94); Mean Platelet Vol. 9.9 fl (6.2-12.0); Monocyte% 9.1 % (0-10); NRBC Flagged by Analyzer 0 % (0-5); Neutrophil # 3.03 X10^3/uL (2.7-7.7); Neutrophil % 54.9 % (47-70); Platelet Count 190 K/mm3 (150-450); RBC Distribution Width CV 14.6 % (11.6-14.6); RBC Distribution Width SD 55.4 fl (35.1-43.9); Red Blood Count 3.89 M/mm3 (4.6-6.2); White Blood Count 5.5 K/mm3 (4.4-11.0)
[2023-11-06 13:45] LABS: ALB/GLOB Ratio 1.1 RATIO (0.9-2.4); AST(SGOT) 28 U/L (15-37); Alanine Aminotransfer ALT/SGPT 29 U/L (16-61); Albumin, Serum 3.5 g/dL (3.2-5.0); Alkaline Phosphatase 76 U/L (45-117); Anion Gap 6 (5-15); BUN 9 mg/dL (7-18); BUN/Creat Ratio 10.9 RATIO (10-20); Chloride 103 mmol/L (98-107); Creatinine, Serum 0.82 mg/dL (0.70-1.30); EST Glomerular Filtration Rate 95 mL/min (>60); Est Glom Filt Rate - Afr Amer 115 mL/min (>60); Globulin 3.2 g/dL (2.2-4.2); Glucose 95 mg/dL (74-106); Potassium 3.6 mmol/L (3.5-5.1); Protein, Total 6.7 g/dL (6.4-8.2); Sodium Level 136 mmol/L (136-145)
== END | disposition home or self-care (01) ==
PROVIDERS: PCP Family Medicine; Referring Provider Internal Medicine Rheumatology; Visit Provider Internal Medicine Rheumatology
DX: M05.70 Rheumatoid arthritis with rheumatoid factor of unspecified site without organ or systems involvement (principal); Z79.899 Other long term (current) drug therapy; M17.0 Bilateral primary osteoarthritis of knee
CPT/HCPCS: 36415; 80053; 85025

== ENCOUNTER 2023-11-20 14:58 | Outpatient (CLI) | payer MEDICARE, SELFPAY ==
[2023-11-20 15:10] VITALS: BP 92/53; PULSE 72; RESP 16; TEMP 36.1; O2SAT 91; BMI 25.0
[2023-11-20] MEDS: GOLIMUMAB IV (15:42)
[2023-11-20] MEDS: NORMAL SALINE 0.9% IV (15:42)
[2023-11-20] MEDS: 0.9% NaCl IVPB Med Flush (250 mL) 15 ML IV (15:43)
[2023-11-20 16:34] VITALS: BP 91/50; PULSE 58; RESP 16; TEMP 36.1; O2SAT 93
== END 2023-11-20 23:59 | disposition home or self-care (01) ==
LOC: MEDOUTP 14:58
PROVIDERS: PCP Family Medicine; Referring Provider Internal Medicine Rheumatology; Visit Provider Internal Medicine Rheumatology
DX: M05.70 Rheumatoid arthritis with rheumatoid factor of unspecified site without organ or systems involvement (principal)
CPT/HCPCS: 96365; J7050; A4216; J1602

== ENCOUNTER → 2024-01-04 | Outpatient (CLI) | payer MEDICARE, SELFPAY ==
[2024-01-04 14:43] LABS: Absolute Lymphocyte Count 1.76 X10^3/uL (0.83-4.51); Absolute Neutrophil Count 2.8 X10^3/uL (2.0-7.7); Basophil# 0.03 X10^3/uL; Basophil% 0.6 % (0-1); Eosinophil# 0.14 X10^3/uL; Eosinophils% 2.6 % (0-5); Hematocrit 37.8 % (40-54); Hemoglobin 12.3 g/dL (13.0-16.5); Lymphocyte # 1.76 X10^3/ul (0.83-4.51); Lymphocyte % 33.1 % (19-41); Mean Corp Hgb Conc 32.5 g/dL (32-36); Mean Corpuscular Hgb 33.2 pg (27.0-32.0); Mean Corpuscular Volume 102.2 fL (80-94); Mean Platelet Vol. 9.4 fl (6.2-12.0); Monocyte# 0.59 X10^3/uL; Monocyte% 11.1 % (0-10); NRBC Flagged by Analyzer 0 % (0-5); Neutrophil # 2.78 X10^3/uL (2.7-7.7); Neutrophil % 52.4 % (47-70); Platelet Count 205 K/mm3 (150-450); RBC Distribution Width CV 15.1 % (11.6-14.6); RBC Distribution Width SD 56.5 fl (35.1-43.9); White Blood Count 5.3 K/mm3 (4.4-11.0)
[2024-01-04 15:06] LABS: ALB/GLOB Ratio 1.1 RATIO (0.9-2.4); AST(SGOT) 29 U/L (15-37); Alanine Aminotransfer ALT/SGPT 33 U/L (16-61); Albumin, Serum 3.5 g/dL (3.2-5.0); Alkaline Phosphatase 63 U/L (45-117); Anion Gap 7 (5-15); BUN 17 mg/dL (7-18); BUN/Creat Ratio 18.9 RATIO (10-20); Calcium,Total 8.3 mg/dL (8.5-10.1); Chloride 103 mmol/L (98-107); EST Glomerular Filtration Rate 86 mL/min (>60); Est Glom Filt Rate - Afr Amer 104 mL/min (>60); Globulin 3.1 g/dL (2.2-4.2); Glucose 85 mg/dL (74-106); Potassium 4.3 mmol/L (3.5-5.1); Protein, Total 6.6 g/dL (6.4-8.2); Sodium Level 137 mmol/L (136-145)
== END | disposition home or self-care (01) ==
LOC: MTLAB 11:40
PROVIDERS: PCP Family Medicine; Referring Provider Internal Medicine Rheumatology; Visit Provider Internal Medicine Rheumatology
DX: M05.70 Rheumatoid arthritis with rheumatoid factor of unspecified site without organ or systems involvement (principal); Z79.899 Other long term (current) drug therapy
CPT/HCPCS: 36415; 80053; 85025

== ENCOUNTER 2024-01-09 15:58 | Emergency (ER) | payer MEDICARE, SELFPAY ==
[2024-01-09 15:59] VITALS: BP 117/65; PULSE 66; RESP 17; TEMP 36; O2SAT 93
--- NOTE | 2024-01-09 16:37 | EDS_ITS ---
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 Secondary adrenal insufficiency Vitamin D deficiency Chronic edema Wears glasses Former smoker History of stress test History of heart attack Anemia Coronary artery disease Atherosclerotic heart disease of elem coronary artery without angina pectoris BPH (benign prostatic hyperplasia) GERD (gastroesophageal reflux disease) Lumbar spinal stenosis Atrial fibrillation PAT (paroxysmal atrial tachycardia) SVT (supraventricular tachycardia) Rheumatoid arthritis Home Medications ?Medication ?Instructions ?Recorded ?Last Taken ?Type tamsulosin 0.4 mg capsule 0.4 mg PO DAILY@1800 Retention 07/18/20 05/31/23 History finasteride 1 mg tablet 5 mg PO DAILY prostate 12/30/20 05/31/23 History golimumab 12.5 mg/mL intravenous 12.5 mg IV .[id number] injection 05/31/22 05/29/23 History solution (Simponi ARIA) gabapentin 300 mg capsule 300 mg PO TID PRN PRN NERVE PAIN 10/20/22 05/31/23 History spironolactone 25 mg tablet 25 mg PO DAILY water pill #30 tabs 11/14/22 05/31/23 Rx trazodone 100 mg tablet 100 mg PO QHS Check with primary 11/14/22 05/31/23 History doctor acetaminophen 500 mg tablet 1,000 mg (2 x 500 mg) PO Q8 #0 tabs 01/24/23 06/01/23 Rx furosemide 40 mg tablet 40 mg PO DAILY 30 days #30 tabs 01/24/23 05/31/23 Rx denosumab 60 mg/mL subcutaneous 60 mg subcut [id number] #1 mL 03/10/23 04/11/23 Rx syringe (Prolia) methotrexate sodium 2.5 mg tablet 20 mg PO QWEEK 06/01/23 05/28/23 History sulfasalazine 500 mg 0.5 g PO Q12H 06/01/23 05/31/23 History tablet,delayed release tramadol 50 mg tablet 50 mg PO Q8H PRN pain 06/01/23 05/31/23 History mirtazapine 15 mg tablet 15 mg PO QHS 06/22/23 Unknown History prednisone 1 mg tablet 10 mg PO DAILY PRN pain 06/22/23 Unknown History rivaroxaban 15 mg tablet (Xarelto) 15 mg PO DINNER 90 days #90 tabs 08/17/23 Unknown Rx atorvastatin 40 mg tablet (Lipitor) 40 mg PO QHS Cholesterol #90 tabs 12/04/23 Unknown Rx hydrocodone-acetaminophen 5-325mg 1 tab PO TID 12/14/23 Unknown History 5mg-325mg amiodarone 200 mg tablet 200 mg PO DAILY heart rate #90 tabs 12/22/23 Unknown Rx Allergy/AdvReac Type Severity Reaction Status Date / Time No Known Allergies Allergy Verified 01/09/24 15:59 Family History Father CVA (cerebral vascular accident) Brother CAD (coronary artery disease) CABG X 3 Mother CVA (cerebral vascular accident) Grandfather Cancer prostate Surgical History History of cardiac catheterization History of coronary artery stent placement Hx of colectomy Hx of transurethral resection of prostate Hx of laminectomy History of lumbar surgery History of coronary artery stent placement (08/06/20) H/O colonoscopy S/P left colectomy S/P appendectomy S/P hemorrhoidectomy S/P vasectomy S/P laparoscopic cholecystectomy H/O umbilical hernia repair S/P inguinal hernia repair S/P rotator cuff repair S/P cataract surgery Social History household members: none housing: house current occupational status: retired Smoking Status: Former smoker how long ago did patient quit smokin years ago alcohol intake: never substance use type: does not use diet: low salt caffeine: Yes Type: coffee Number of servings: 4 EXAM Physical Exam Const Vital Signs: 01/09/24 15:59 01/09/24 16:18 01/09/24 17:59 Temperature 96.8 F L Temperature Source Temporal Pulse Rate 66 65 Respiratory Rate 17 18 Respiratory Effort Normal Respiratory Pattern Normal Blood Pressure 117/65 122/55 H Blood Pressure Mean 82 77 Pulse Ox 93 94 Oxygen Delivery Method Room Air Room Air 01/09/24 19:00 01/09/24 19:36 Temperature 97.5 F L Temperature Source Pulse Rate 70 66 Respiratory Rate 16 19 H Respiratory Effort Respiratory Pattern Blood Pressure 129/64 H 129/64 H Blood Pressure Mean 85 85 Pulse Ox 95 100 Oxygen Delivery Method Room Air MDM MDM MDM Narrative Medical decision making narrative: HISTORY OF PRESENT ILLNESS: 83-year-old male presents with dizziness. Notes he felt dizzy when he bent down to pick something up. States he felt his eyes were moving [id number]. He does not feel dizzy at this point. Denies headache. Denies focal numbness weakness or loss sensation. Denies chest pain palpitations, vomiting, diarrhea. REVIEW OF SYSTEMS: Pertinent positives: Dizziness Pertinent negatives: Chest pain, shortness of breath, bleeding diathesis PHYSICAL EXAM: Nursing triage notes reviewed, Vital signs reviewed Constitutional: please see mdm HENT: MMM Eyes: Pupils equal round and reactive to light, Extraocular muscles intact, no vertical, horizontal rotatory nystagmus Neck: No stridor, no JVD, full neck ROM Lungs: Clear to auscultation, No wheezing or rales. No increased work of breathing, no conversational dyspnea, no accessory muscle use, no nasal flaring. No respiratory distress noted Heart: Regular rate and rhythm, positive murmur likely secondary to her valve stenosis, No rubs and No gallops, 2+ distal pulses (radial, femoral, posterior tibial) in all extremities Abdomen: Soft, there is no tenderness, noted periumbilical hernias further reducible. No overlying skin changes. No tenderness to palpation. No rigidity, rebound or guarding, no obvious peritoneal signs, no palpable pulsatile abdominal masses, no auscultated abdominal bruit : No CVAT Extremities: No edema Neuro: Alert and oriented x3, neuro exam at baseline, cranial nerves II through XII are intact. No pain with extraocular muscle movement. There is negative test of skew. 5 of 5 strength in upper and lower extremities in flexion extension. Intact sensation to light touch in upper and lower extremity dermatomes. No truncal or extremity ataxia. No dysdiadochokinesia. Normal gait. 2+ reflexes in upper and lower extremities. No meningeal signs. Negative Babinski. NIH of 0. Skin: No rash or lesions noted MEDICAL DECISION MAKING: Chief Complaint: Dizziness External records reviewed: Reviewed last outpatient cardiology visit. Factors affecting care: CAD, SVT, NSTEMI, A-fib (on Xarelto), hyperlipidemia, aortic valve stenosis Social determinants of health: Elderly History obtained from others: none Consults: none [facility] Narrative: The patient was initially hemodynamically stable, afebrile and nontoxic-óscar earing. Exam without focal neurologic deficits. No nystagmus. No coordination or ataxia noted. I considered the following differential diagnosis: Posterior circulation CVA, dehydration, arrhythmia, anemia, electrolyte disturbance, ACS ALL IMAGES (IF OBTAINED) HAVE BEEN PERSONALLY REVIEWED AND INTERPRETED BY MYSELF. I have personally reviewed the patient's chest x-ray. Chest x-ray is unrema rkable for pulmonary edema, pneumothorax, pneumonia or focal cardiopulmonary abnormality. EKG with normal sinus rhythm, slightly prolonged QT, left ax deviation, no STEMI BMP without evidence of significant electrolyte abnormalities, no anion gap, no acute kidney injury. LFTs show no evidence of hepatobiliary pathology. High-sensitivity troponin is negative, no evidence of myocardial ischemia CBC with no leukocytosis, noted mild anemia has essentially baseline, no thrombocytopenia CT scan of the head is negative for acute intracranial abnormality, ICH or bleed or mass The synthesis of the patient's history, physical exam, labs images suggest no acute life from radiology specifically no signs of intracranial hemorrhage, pneumonia, ACS, arrhythmia, subcu anemia electrolyte disturbance. The patient's presentation is unclear likely secondary to position changes. Encouraged patient not to bend over. Patient was encouraged to take more p.o. fluid and to follow-up with primary care physician for further outpatient evaluation treatment. Strict return precautions were discussed. The patient and/or family, caregivers express understanding. The patient and/or family, caregivers agrees with the plan. Shared decision making: I will have a discussion with the patient and or visitors regarding risk/benefits of further testing or admission. They will be made aware of of the risk/benefits inherent in this decision they will be given the opportunity to voice understanding. Total critical care time today provided was at least 0 minutes. This excludes separately billable procedures. Critical care time (if documented) is secondary to the patient having high probability of clinically significant/life threatening deterioration in the patient's condition which required my urgent intervention. Impression: 1. Dizziness 2. History of atrial fibrillation Dispo: Discharge home This note was generated with [employer] dictation software. It may contain incorrect words, spelling, and punctuation that were not noted in review of the chart prior to signing. Lab Data Labs: Laboratory Results - last 24 hr 01/09/24 16:38 WBC 5.3 RBC 3.46 L Hgb 11.7 L Hct 35.3 L MCV 102.0 H MCH 33.8 H MCHC 33.1 RDW Std Deviation 56.8 H RDW Coeff of Jaciel 15.1 H Plt Count 191 MPV 9.8 Sodium 138 Potassium 3.9 Chloride 101 Carbon Dioxide 30.0 Anion Gap 7 BUN 20 H Creatinine 0.98 Estim Creat Clear Calc 43.73 Est GFR (MDRD) Af Amer 94 Est GFR (MDRD) Non-Af 78 BUN/Creatinine Ratio 20.4 H Glucose 119 H Calcium 8.3 L Total Bilirubin 0.30 AST 29 ALT 31 Alkaline Phosphatase 82 Troponin I High Sens 15 Total Protein 6.4 Albumin 3.4 Globulin 3.0 Albumin/Globulin Ratio 1.1 Radiography Diagnostic Testing: Clinical Impression(s) from Imaging Studies Brain CT 01/09/24 17:02 IMPRESSION: No acute intracranial pathology of the brain. Electronically Signed: Maxx Day DO at 17:46 EDT Reading Location ID and State: [facility] / [place] Tel [phone], Service support , Chest X-Ray 01/09/24 17:05 IMPRESSION: Possible left basilar consolidation. Electronically Signed: Maxx Day DO at 18:08 EDT , Discharge Plan Triage Chief Complaint: Dizziness ED Provider: Saqib Magana Dx/Rx/DC Orders Clinical Impression: Dizziness Instructions: ED Dizziness, Uncertain Cause Prescriptions: No Action finasteride 1 mg tablet 5 mg PO DAILY spironolactone 25 mg tablet 25 mg PO DAILY Qty: 30 12RF Prolia 60 mg/mL syringe 60 mg subcut [id number] Qty: 1 1RF hydrocodone-acetaminophen 5-325 mg tablet 1 tab PO TID tamsulosin 0.4 MG capsule 0.4 mg PO DAILY@1800 trazodone 100 mg tablet 100 mg PO QHS Simponi ARIA 12.5 mg/mL Solution 12.5 mg IV [id number] Patient Comments: PT GOES TO GET INJECTION EVERY 8 WEEKS CAN NOT REMEMBER LAST SHOT NEXT DUE IS IN OCTOBER gabapentin 300 mg capsule 300 mg PO TID PRN PRN (Reason: NERVE PAIN) Patient Comments: Take 1 (one) Capsule by mouth three times daily, as needed furosemide 40 mg Tablet 40 mg PO DAILY 30 Days Qty: 30 0RF acetaminophen 500 mg Tablet 1,000 mg PO Q8 Qty: 0 0RF methotrexate sodium 2.5 mg tablet 20 mg PO QWEEK sulfasalazine 500 mg tablet,delayed release (DR/EC) 0.5 g PO Q12H tramadol 50 mg tablet 50 mg PO Q8H PRN (Reason: pain) mirtazapine 15 mg tablet 15 mg PO QHS prednisone 1 mg tablet 10 mg PO DAILY PRN (Reason: pain) Patient Comments: 3mg Xarelto 15 mg tablet 15 mg PO DINNER 90 Days Qty: 90 3RF atorvastatin [Lipitor] 40 mg tablet 40 mg PO QHS Qty: 90 3RF amiodarone 200 mg tablet 200 mg PO DAILY Qty: 90 3RF Primary Care Provider: Gloria Hazel Referrals: Gloria Hazel MD [Primary Care Provider] - Activity Restrictions/Additional Instructions: Thank you for trusting us with your care today! Please drink more fluids. Please take Tylenol (2 pills, 650 mg) Please return to the emergency department if your symptoms change or worsen. Please follow with your primary care physician for further outpatient evaluation and management. Print Language: Argentine Disposition Disposition: Home, Self Care Discharge Date/Time: 01/09/24 19:41
--- NOTE | 2024-01-09 17:02 | CT_ITS ---
STUDY: CT BRAIN WITHOUT CONTRAST REASON FOR EXAM: Male, 83 years old. Dizziness, history of anticoagulation, head trauma RADIATION DOSAGE (If Supplied By Facility): CTDIvol = ( 44.99 ) mGy, DLP = ( 812.98 ) mGycm TECHNIQUE: Transaxial CT imaging of the brain was performed without administration of intravenous contrast material. Individualized dose optimization techniques were used for this CT. COMPARISON: No relevant priors. FINDINGS: Normal soft tissue structures. Normal calvarium. Prominent ventricles and extra-axial spaces with atrophy. Bilateral white matter microangiopathic ischemic changes of the cerebral hemispheres. Vascular calcifications are present. Normal basal ganglia and thalami. Normal brainstem. Normal cerebellum. There is no intracranial hemorrhage. There are no findings of an acute ischemic infarction. Normal visualized paranasal sinuses. CT/Brain/Head without Contrast IMPRESSION: No acute intracranial pathology of the brain. Electronically Signed: Maxx Day DO at 17:46 EDT ,
--- NOTE | 2024-01-09 17:05 | RAD_ITS ---
INDICATION: Dizziness EXAMINATION/TECHNIQUE: X-RAY - XR Chest 1 View COMPARISON: June 01, 2023 FINDINGS: LINES/DEVICES: None. LUNGS: Possible left basilar focal consolidation.. No pneumothorax. MEDIASTINUM AND CARDIOVASCULAR STRUCTURES: Cardiac silhouette not enlarged. Central airways and mediastinal contour are unremarkable. BONES AND SOFT TISSUES: Degenerative changes. Compression of lower thoracic vertebral segments. Prior vertebroplasty.. Old left rib fractures. RAD/Chest 1 View (Portable) IMPRESSION: Possible left basilar consolidation. Electronically Signed: Maxx Day DO at 18:08 EDT ,
[2024-01-09 17:09] VITALS: BMI 25.0
[2024-01-09 17:37] LABS: ALB/GLOB Ratio 1.1 RATIO (0.9-2.4); AST(SGOT) 29 U/L (15-37); Alanine Aminotransfer ALT/SGPT 31 U/L (16-61); Albumin, Serum 3.4 g/dL (3.2-5.0); Alkaline Phosphatase 82 U/L (45-117); Anion Gap 7 (5-15); BUN 20 mg/dL (7-18); BUN/Creat Ratio 20.4 RATIO (10-20); Calcium,Total 8.3 mg/dL (8.5-10.1); Chloride 101 mmol/L (98-107); Creatinine, Serum 0.98 mg/dL (0.70-1.30); EST Glomerular Filtration Rate 78 mL/min (>60); Est Glom Filt Rate - Afr Amer 94 mL/min (>60); Estimated Creatinine Clearance 43.73 ml/min; Glucose 119 mg/dL (74-106); Potassium 3.9 mmol/L (3.5-5.1); Protein, Total 6.4 g/dL (6.4-8.2); Sodium Level 138 mmol/L (136-145); Troponin-I HS 15 pg/mL (3.0-78.0)
[2024-01-09 17:59] VITALS: BP 122/55; PULSE 65; RESP 18; O2SAT 94
[2024-01-09 19:00] VITALS: BP 129/64; PULSE 70; RESP 16; O2SAT 95
[2024-01-09 19:18] LABS: Hematocrit 35.3 % (40-54); Hemoglobin 11.7 g/dL (13.0-16.5); Mean Corp Hgb Conc 33.1 g/dL (32-36); Mean Corpuscular Hgb 33.8 pg (27.0-32.0); Mean Platelet Vol. 9.8 fl (6.2-12.0); Platelet Count 191 K/mm3 (150-450); RBC Distribution Width CV 15.1 % (11.6-14.6); RBC Distribution Width SD 56.8 fl (35.1-43.9); Red Blood Count 3.46 M/mm3 (4.6-6.2); White Blood Count 5.3 K/mm3 (4.4-11.0)
[2024-01-09 19:36] VITALS: BP 129/64; PULSE 66; RESP 19; TEMP 36.4; O2SAT 100
== END 2024-01-09 19:41 | disposition home or self-care (01) ==
PROVIDERS: Emergency Provider Emergency Medicine; PCP Family Medicine; Visit Provider Emergency Medicine
DX: R42 Dizziness and giddiness (principal); I48.91 Unspecified atrial fibrillation; I25.10 Atherosclerotic heart disease of native coronary artery without angina pectoris; Z87.891 Personal history of nicotine dependence; Z95.5 Presence of coronary angioplasty implant and graft
CPT/HCPCS: 70450; 71045; 80048; 80053; 84484; 85027; 93005; 99285; A4216

== ENCOUNTER 2024-01-18 12:04 | Outpatient (CLI) | payer MEDICARE, SELFPAY ==
[2024-01-18 12:25] VITALS: BP 111/54; PULSE 66; RESP 16; TEMP 36.8; O2SAT 94; BMI 26.2
[2024-01-18] MEDS: GOLIMUMAB IV (12:54)
[2024-01-18] MEDS: NORMAL SALINE 0.9% IV (12:54)
[2024-01-18] MEDS: 0.9% Normal Saline (100mL Bag) 100 ML 15 ML IV (12:54)
[2024-01-18] MEDS: 0.9% NaCl Peripheral Flush Adult/Peds IV (12:55)
[2024-01-18 13:42] VITALS: BP 114/45; PULSE 57; RESP 16; TEMP 36.5; O2SAT 98
== END 2024-01-18 23:59 | disposition home or self-care (01) ==
LOC: MEDOUTP 12:06
PROVIDERS: PCP Family Medicine; Referring Provider Internal Medicine Rheumatology; Visit Provider Internal Medicine Rheumatology
DX: M06.9 Rheumatoid arthritis, unspecified (principal)
CPT/HCPCS: 96365; A4216; J1602

== ENCOUNTER → 2024-03-06 | Outpatient (CLI) | payer MEDICARE, SELFPAY ==
--- NOTE | 2024-03-06 16:07 | RAD_ITS ---
EXAM: XR RIGHT SHOULDER COMPLETE, 2 OR MORE VIEWS CLINICAL INDICATION: OA TECHNIQUE: Two or more views of the right shoulder. COMPARISON: No relevant prior studies available. FINDINGS: BONES/JOINTS: [address] within the humeral head. Cephalic drift of the right humeral head indicative of rotator cuff deformity with secondary changes of the acromion process. Narrowing of the glenohumeral joint. SOFT TISSUES: Mild soft tissue calcification adjacent to the humerus likely related to chronic bursitis. No soft tissue swelling or gas. No radiopaque foreign body. RAD/Shoulder min 2 Views IMPRESSION: No acute abnormality. Chronic rotator cuff deformity. Arthritic narrowing of the glenohumeral joint. Electronically Signed: Santana Cortez MD at 16:37 EDT ,
--- NOTE | 2024-03-06 16:07 | RAD_ITS ---
EXAM: XR LEFT SHOULDER COMPLETE, 2 OR MORE VIEWS CLINICAL INDICATION: OA TECHNIQUE: Two or more views of the left shoulder. COMPARISON: No relevant prior studies available. FINDINGS: BONES/JOINTS: No acute fracture. Cephalic drift of the left humeral head consistent with rotator cuff deformity. Chronic fracture of the left seventh rib. SOFT TISSUES: Normal. No soft tissue swelling or gas. No radiopaque foreign body. RAD/Shoulder min 2 Views IMPRESSION: No acute abnormality. Findings suggest rotator cuff deformity. Electronically Signed: Santana Cortez MD at 16:25 EDT ,
== END | disposition home or self-care (01) ==
LOC: RAD 15:57
PROVIDERS: PCP Family Medicine; Referring Provider Anesthesiology Pain Medicine; Visit Provider Anesthesiology Pain Medicine
DX: M19.011 Primary osteoarthritis, right shoulder (principal); M19.012 Primary osteoarthritis, left shoulder
CPT/HCPCS: 73030

== ENCOUNTER 2024-03-11 15:00 | Outpatient (CLI) | payer MEDICARE, SELFPAY ==
[2024-03-11 15:10] VITALS: BP 109/66; PULSE 69; RESP 16; TEMP 36.9; O2SAT 94; BMI 26.2
[2024-03-11] MEDS: NORMAL SALINE 0.9% IV (15:44)
[2024-03-11] MEDS: GOLIMUMAB IV (15:44)
[2024-03-11] MEDS: 0.9% NaCl Peripheral Flush Adult/Peds IV (15:44)
[2024-03-11 16:35] VITALS: BP 108/51; PULSE 63; RESP 16; TEMP 36.6; O2SAT 97
== END 2024-03-11 23:59 | disposition home or self-care (01) ==
LOC: MEDOUTP 15:01
PROVIDERS: PCP Family Medicine; Referring Provider Internal Medicine Rheumatology; Visit Provider Internal Medicine Rheumatology
DX: M05.70 Rheumatoid arthritis with rheumatoid factor of unspecified site without organ or systems involvement (principal)
CPT/HCPCS: 96365; A4216; J1602

== ENCOUNTER → 2024-03-28 | Outpatient (CLI) | payer MEDICARE, SELFPAY ==
[2024-03-28 17:58] LABS: Absolute Lymphocyte Count 2.07 X10^3/uL (0.83-4.51); Absolute Neutrophil Count 3.5 X10^3/uL (2.0-7.7); Basophil# 0.05 X10^3/uL; Basophil% 0.7 % (0-1); Eosinophil# 0.35 X10^3/uL; Eosinophils% 5.2 % (0-5); Hematocrit 37.4 % (40-54); Lymphocyte # 2.07 X10^3/ul (0.83-4.51); Lymphocyte % 30.9 % (19-41); Mean Corp Hgb Conc 32.1 g/dL (32-36); Mean Corpuscular Hgb 33.2 pg (27.0-32.0); Mean Corpuscular Volume 103.6 fL (80-94); Mean Platelet Vol. 9.5 fl (6.2-12.0); Monocyte# 0.76 X10^3/uL; Monocyte% 11.4 % (0-10); NRBC Flagged by Analyzer 0 % (0-5); Neutrophil # 3.45 X10^3/uL (2.7-7.7); Neutrophil % 51.7 % (47-70); Platelet Count 209 K/mm3 (150-450); RBC Distribution Width CV 13.4 % (11.6-14.6); RBC Distribution Width SD 51.8 fl (35.1-43.9); Red Blood Count 3.61 M/mm3 (4.6-6.2); White Blood Count 6.7 K/mm3 (4.4-11.0)
[2024-03-28 18:08] LABS: ALB/GLOB Ratio 1.1 RATIO (0.9-2.4); AST(SGOT) 26 U/L (15-37); Alanine Aminotransfer ALT/SGPT 29 U/L (16-61); Albumin, Serum 3.5 g/dL (3.2-5.0); Alkaline Phosphatase 63 U/L (45-117); Anion Gap 4 (5-15); BUN 10 mg/dL (7-18); BUN/Creat Ratio 12.2 RATIO (10-20); Calcium,Total 8.9 mg/dL (8.5-10.1); Chloride 99 mmol/L (98-107); Creatinine, Serum 0.82 mg/dL (0.70-1.30); EST Glomerular Filtration Rate 96 mL/min (>60); Est Glom Filt Rate - Afr Amer 116 mL/min (>60); Globulin 3.1 g/dL (2.2-4.2); Glucose 83 mg/dL (74-106); Protein, Total 6.6 g/dL (6.4-8.2); Sodium Level 133 mmol/L (136-145)
== END | disposition home or self-care (01) ==
PROVIDERS: PCP Family Medicine; Referring Provider Internal Medicine Rheumatology; Visit Provider Internal Medicine Rheumatology
DX: M05.70 Rheumatoid arthritis with rheumatoid factor of unspecified site without organ or systems involvement (principal); M17.0 Bilateral primary osteoarthritis of knee; Z79.899 Other long term (current) drug therapy
CPT/HCPCS: 36415; 80053; 85025

== ENCOUNTER → 2024-04-12 | Outpatient (CLI) | payer MEDICARE, SELFPAY ==
--- NOTE | 2024-04-12 14:55 | RAD_ITS ---
INDICATION: cough EXAMINATION/TECHNIQUE: X-RAY - XR Chest 2 Views COMPARISON: CR ChestAug 2022 8:10pm FINDINGS: LINES/DEVICES: None. LUNGS: No consolidation, edema or effusion. No pneumothorax. Subsegmental atelectasis in the lung bases. MEDIASTINUM AND CARDIOVASCULAR STRUCTURES: Cardiac silhouette not enlarged. Central airways and mediastinal contour are unremarkable. 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 Postoperative changes of the right shoulder. RAD/Chest PA and Lateral IMPRESSION: No radiographic evidence of acute cardiopulmonary disease. Electronically Signed: Sharmin Rodriguez MD at 3:54 EST ,
== END | disposition home or self-care (01) ==
LOC: MTRAD 14:53
PROVIDERS: PCP Family Medicine; Referring Provider Family Medicine; Visit Provider Family Medicine
DX: R05.9 Cough, unspecified (principal)
CPT/HCPCS: 71046

== ENCOUNTER 2024-05-09 13:02 | Outpatient (CLI) | payer MEDICARE, SELFPAY ==
[2024-05-09 13:20] VITALS: BP 108/58; PULSE 72; RESP 16; TEMP 36.8; O2SAT 95; BMI 25.9
[2024-05-09] MEDS: NORMAL SALINE 0.9% IV (14:03)
[2024-05-09] MEDS: GOLIMUMAB IV (14:03)
[2024-05-09 14:56] VITALS: BP 118/50; PULSE 53; RESP 16; TEMP 36.2; O2SAT 94
== END 2024-05-09 23:59 | disposition home or self-care (01) ==
LOC: MEDOUTP 13:02
PROVIDERS: PCP Family Medicine; Referring Provider Internal Medicine Rheumatology; Visit Provider Internal Medicine Rheumatology
DX: M05.70 Rheumatoid arthritis with rheumatoid factor of unspecified site without organ or systems involvement (principal)
CPT/HCPCS: 96365; A4216; J1602

== ENCOUNTER → 2024-06-24 | Outpatient (CLI) | payer MEDICARE, SELFPAY ==
[2024-06-24 17:49] LABS: Absolute Lymphocyte Count 1.32 X10^3/uL (0.83-4.51); Absolute Neutrophil Count 3.9 X10^3/uL (2.0-7.7); Basophil# 0.05 X10^3/uL; Basophil% 0.8 % (0-1); Eosinophil# 0.32 X10^3/uL; Hematocrit 36.2 % (40-54); Hemoglobin 12.1 g/dL (13.0-16.5); Lymphocyte # 1.32 X10^3/ul (0.83-4.51); Lymphocyte % 20.7 % (19-41); Mean Corp Hgb Conc 33.4 g/dL (32-36); Mean Corpuscular Hgb 33.8 pg (27.0-32.0); Mean Corpuscular Volume 101.1 fL (80-94); Mean Platelet Vol. 9.6 fl (6.2-12.0); Monocyte# 0.81 X10^3/uL; Monocyte% 12.7 % (0-10); NRBC Flagged by Analyzer 0 % (0-5); Neutrophil # 3.87 X10^3/uL (2.7-7.7); Neutrophil % 60.6 % (47-70); Platelet Count 201 K/mm3 (150-450); RBC Distribution Width CV 15.9 % (11.6-14.6); RBC Distribution Width SD 58.9 fl (35.1-43.9); Red Blood Count 3.58 M/mm3 (4.6-6.2); White Blood Count 6.4 K/mm3 (4.4-11.0)
[2024-06-24 18:10] LABS: ALB/GLOB Ratio 1.1 RATIO (0.9-2.4); AST(SGOT) 27 U/L (15-37); Alanine Aminotransfer ALT/SGPT 25 U/L (16-61); Albumin, Serum 3.7 g/dL (3.2-5.0); Alkaline Phosphatase 80 U/L (45-117); Anion Gap 8 (5-15); BUN 23 mg/dL (7-18); BUN/Creat Ratio 16.2 RATIO (10-20); Calcium,Total 8.7 mg/dL (8.5-10.1); Chloride 98 mmol/L (98-107); Creatinine, Serum 1.42 mg/dL (0.70-1.30); EST Glomerular Filtration Rate 51 mL/min (>60); Est Glom Filt Rate - Afr Amer 61 mL/min (>60); Globulin 3.5 g/dL (2.2-4.2); Glucose 86 mg/dL (74-106); Potassium 4.3 mmol/L (3.5-5.1); Protein, Total 7.2 g/dL (6.4-8.2); Sodium Level 136 mmol/L (136-145)
== END | disposition home or self-care (01) ==
LOC: MTLAB 15:37
PROVIDERS: PCP Family Medicine; Referring Provider Internal Medicine Rheumatology; Visit Provider Internal Medicine Rheumatology
DX: M05.70 Rheumatoid arthritis with rheumatoid factor of unspecified site without organ or systems involvement (principal); Z79.899 Other long term (current) drug therapy
CPT/HCPCS: 36415; 80053; 85025

== ENCOUNTER 2024-07-02 14:58 | Outpatient (CLI) | payer MEDICARE, SELFPAY ==
[2024-07-02 15:08] VITALS: BP 109/61; PULSE 82; RESP 16; TEMP 36.8; O2SAT 95; BMI 26.6
[2024-07-02] MEDS: 0.9% Normal Saline (100mL Bag) 100 ML 15 ML IV (15:27)
[2024-07-02] MEDS: GOLIMUMAB IV (15:28)
[2024-07-02] MEDS: 0.9% NaCl Peripheral Flush Adult/Peds IV (15:28)
[2024-07-02] MEDS: NORMAL SALINE 0.9% IV (15:28)
[2024-07-02 16:11] VITALS: BP 113/52; PULSE 62; RESP 16; TEMP 36.7
== END 2024-07-02 23:59 | disposition home or self-care (01) ==
LOC: MEDOUTP 15:01
PROVIDERS: PCP Family Medicine; Referring Provider Internal Medicine Rheumatology; Visit Provider Internal Medicine Rheumatology
DX: M05.70 Rheumatoid arthritis with rheumatoid factor of unspecified site without organ or systems involvement (principal)
CPT/HCPCS: 96365; A4216; J1602

== ENCOUNTER → 2024-07-15 | Outpatient (CLI) | payer MEDICARE, SELFPAY ==
[2024-07-15 18:34] LABS: ALB/GLOB Ratio 1.1 RATIO (0.9-2.4); AST(SGOT) 32 U/L (15-37); Alanine Aminotransfer ALT/SGPT 27 U/L (16-61); Albumin, Serum 3.6 g/dL (3.2-5.0); Alkaline Phosphatase 74 U/L (45-117); Anion Gap 6 (5-15); BUN 14 mg/dL (7-18); BUN/Creat Ratio 14.8 RATIO (10-20); Calcium,Total 8.8 mg/dL (8.5-10.1); Chloride 103 mmol/L (98-107); Creatinine, Serum 0.95 mg/dL (0.70-1.30); EST Glomerular Filtration Rate 81 mL/min (>60); Est Glom Filt Rate - Afr Amer 98 mL/min (>60); Globulin 3.3 g/dL (2.2-4.2); Glucose 135 mg/dL (74-106); Protein, Total 6.9 g/dL (6.4-8.2); Sodium Level 137 mmol/L (136-145)
== END | disposition home or self-care (01) ==
LOC: MTLAB 16:00
PROVIDERS: PCP Family Medicine; Referring Provider Internal Medicine Rheumatology; Visit Provider Internal Medicine Rheumatology
DX: M05.70 Rheumatoid arthritis with rheumatoid factor of unspecified site without organ or systems involvement (principal); Z79.899 Other long term (current) drug therapy
CPT/HCPCS: 36415; 80053

== ENCOUNTER 2024-08-26 14:55 | Outpatient (CLI) | payer MEDICARE, SELFPAY ==
[2024-08-26 15:01] VITALS: BP 105/48; PULSE 69; RESP 16; TEMP 36.6; O2SAT 92; BMI 25.3
[2024-08-26] MEDS: GOLIMUMAB IV (15:33)
[2024-08-26] MEDS: 0.9% NaCl IVPB Med Flush (100mL) 15 ML IV (15:33)
[2024-08-26] MEDS: NORMAL SALINE 0.9% IV (15:33)
[2024-08-26 16:27] VITALS: BP 105/48; PULSE 67
== END 2024-08-26 23:59 | disposition home or self-care (01) ==
LOC: MEDOUTP 14:55
PROVIDERS: PCP Family Medicine; Referring Provider Internal Medicine Rheumatology; Visit Provider Internal Medicine Rheumatology
DX: M05.70 Rheumatoid arthritis with rheumatoid factor of unspecified site without organ or systems involvement (principal)
CPT/HCPCS: 96365; A4216; J1602

== ENCOUNTER → 2024-09-16 | Outpatient (CLI) | payer MEDICARE, SELFPAY ==
[2024-09-16 18:21] LABS: Absolute Lymphocyte Count 1.69 X10^3/uL (0.83-4.51); Basophil# 0.02 X10^3/uL; Basophil% 0.4 % (0-1); Eosinophil# 0.33 X10^3/uL; Hematocrit 32.1 % (40-54); Hemoglobin 10.7 g/dL (13.0-16.5); Lymphocyte # 1.69 X10^3/ul (0.83-4.51); Mean Corp Hgb Conc 33.3 g/dL (32-36); Mean Corpuscular Hgb 32.4 pg (27.0-32.0); Mean Corpuscular Volume 97.3 fL (80-94); Mean Platelet Vol. 9.7 fl (6.2-12.0); Monocyte# 0.64 X10^3/uL; Monocyte% 13.6 % (0-10); NRBC Flagged by Analyzer 0 % (0-5); Neutrophil # 2.01 X10^3/uL (2.7-7.7); Neutrophil % 42.8 % (47-70); Platelet Count 165 K/mm3 (150-450); RBC Distribution Width SD 53.2 fl (35.1-43.9); White Blood Count 4.7 K/mm3 (4.4-11.0)
[2024-09-16 18:47] LABS: ALB/GLOB Ratio 1.5 RATIO (0.9-2.4); AST(SGOT) 32 U/L (<=37); Alanine Aminotransfer ALT/SGPT 23 U/L (<=46); Albumin, Serum 3.8 g/dL (3.4-4.8); Alkaline Phosphatase 67 U/L (40-129); Anion Gap 8 (5-15); BUN 18 mg/dL (4-19); BUN/Creat Ratio 17.4 RATIO (10-20); Calcium,Total 8.6 mg/dL (7.6-11.0); Carbon Dioxide 27.7 mmol/L (21.0-32.0); Chloride 96 mmol/L (98-108); Creatinine, Serum 1.02 mg/dL (0.70-1.20); EST Glomerular Filtration Rate 74 (>60); Globulin 2.4 g/dL (2.2-4.2); Glucose 104 mg/dL (70-99); Potassium 4.2 mmol/L (3.3-5.1); Protein, Total 6.2 g/dL (5.9-8.4); Sodium Level 132 mmol/L (133-145); Total Bilirubin 0.33 mg/dL (0.00-1.30)
== END | disposition home or self-care (01) ==
LOC: MTLAB 16:21
PROVIDERS: PCP Family Medicine; Referring Provider Internal Medicine Rheumatology; Visit Provider Internal Medicine Rheumatology
DX: M05.70 Rheumatoid arthritis with rheumatoid factor of unspecified site without organ or systems involvement (principal); Z79.899 Other long term (current) drug therapy
CPT/HCPCS: 36415; 80053; 85025

== ENCOUNTER → 2024-10-01 | Outpatient (CLI) | payer MEDICARE, SELFPAY ==
[2024-10-01 21:56] LABS: Amphetamine Urine NEGATIVE (<1000 ng/mL); Barbiturate Urine NEGATIVE (< 200 ng/mL); Benzodiazepine Urine NEGATIVE (< 200 ng/mL); Buprenorphine Urine NEGATIVE (< 200 ng/mL); Cocaine Urine NEGATIVE (< 300 ng/mL); Fentanyl, Urine NEGATIVE; Methadone Urine NEGATIVE (< 300 ng/mL); Opiates Urine PRESUMPTIVE POSITIVE (< 300 ng/mL); Oxycodone, Urine NEGATIVE (< 100 ng/mL); PCP Urine NEGATIVE (< 25 ng/mL); THC Urine NEGATIVE (< 50 ng/mL)
== END | disposition home or self-care (01) ==
LOC: LAB 17:45
PROVIDERS: PCP Family Medicine; Referring Provider Anesthesiology Pain Medicine; Visit Provider Anesthesiology Pain Medicine
DX: F11.20 Opioid dependence, uncomplicated (principal)
CPT/HCPCS: 80307

== ENCOUNTER → 2024-10-24 | Outpatient (CLI) | payer MEDICARE, SELFPAY ==
--- NOTE | 2024-10-24 19:01 | CT_ITS ---
PROCEDURE: EXTREMITY UPPER WITHOUT CONTRA 10/24/2024 REASON FOR EXAM: BLUEPRINT PLANNING FOR REVERSE SHOULDER TECHNIQUE: Axial CT images of the right shoulder obtained without intravenous contrast. Coronal and Sagittal reconstruction series were provided. One or more dose reduction techniques were used (e.g., Automated exposure control, adjustment of the mA and/or kV according to patient size, use of iterative reconstruction technique RADIATION DOSE SUMMARY: CTDlvol: 22.12 mGy DLP: 585.81 mGycm COMPARISON: None FINDINGS: Bones: Evidence of prior rotator cuff surgery. Joints: Marked degree of joint space narrowing of the glenohumeral joint with degenerative spur formation of the humeral head. There cephalic migration of the humeral head with decreased space between the humeral head and acromion. This is suggestive of rotator cuff issues. Soft Tissues: Soft tissue swelling. CT/Extremity Upper without Contra IMPRESSION: Marked degree of joint space narrowing of the right shoulder with degenerative spur formation. Cephalic migration of the humerus with decreased distance between the humeral head in the acromion in keeping wit h rotator cuff pathology. Reading Location: [place] [id number]
== END | disposition home or self-care (01) ==
PROVIDERS: PCP Family Medicine; Referring Provider Orthopaedic Surgery Sports Medicine; Visit Provider Orthopaedic Surgery Sports Medicine
DX: M75.101 Unspecified rotator cuff tear or rupture of right shoulder, not specified as traumatic (principal); M12.811 Other specific arthropathies, not elsewhere classified, right shoulder; M25.511 Pain in right shoulder
CPT/HCPCS: 73200

== ENCOUNTER 2024-10-25 11:04 | Outpatient (CLI) | payer MEDICARE, SELFPAY ==
[2024-10-25 11:34] VITALS: BP 120/58; PULSE 51; RESP 16; TEMP 36.5; O2SAT 96; BMI 26.1
[2024-10-25] MEDS: NORMAL SALINE 0.9% IV (12:08)
[2024-10-25] MEDS: GOLIMUMAB IV (12:08)
[2024-10-25] MEDS: 0.9% NaCl IVPB Med Flush (100mL) 15 ML IV (12:08)
[2024-10-25] MEDS: 0.9% NaCl Peripheral Flush Adult IV (12:08)
[2024-10-25 12:57] VITALS: BP 129/57; PULSE 51; RESP 16; O2SAT 95
== END 2024-10-25 23:59 | disposition home or self-care (01) ==
LOC: MEDOUTP 11:04
PROVIDERS: PCP Family Medicine; Referring Provider Internal Medicine Rheumatology; Visit Provider Internal Medicine Rheumatology
DX: M05.70 Rheumatoid arthritis with rheumatoid factor of unspecified site without organ or systems involvement (principal)
CPT/HCPCS: 96365; A4216; J1602

== ENCOUNTER → 2024-11-06 | Outpatient (CLI) | payer MEDICARE, SELFPAY ==
--- NOTE | 2024-11-06 15:56 | MRI_ITS ---
PROCEDURE: UPPER EXT JOINT ONLY(ROUTINE) 11/06/2024 REASON FOR EXAM: PLANNING FOR RTSA TECHNIQUE: MRI of the right upper Extremity. Multiplanar and multisequence images were obtained without IV contrast administration. COMPARISON: COMPARISON : CT scan on 10/24/2024. FINDINGS: Heterogeneous signal intensity of the visualized bone marrow, probably osteopenia. Type III acromion. 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 Findings are demonstrated by joint space narrowing, osteophyte formation and degenerative periarticular bone marrow changes. Narrowing of the supraspinatus outlet and impingement on its myotendinous junction. Surgical changes of the supraspinatus tendon. Tendinosis with moderate partial thickness tear of the insertional fibers of the supraspinatus tendon. Severe chronic atrophy of the supraspinatus muscle. Associated edema/effusion. Tendinosis with moderate partial thickness tear of the insertional fibers of the infraspinatus tendon. Severe chronic atrophy of the infraspinatus muscle. Associated edema/effusion. Tendinosis with moderate partial thickness tear of the insertional fibers of the subscapularis tendon. Severe chronic atrophy of the subscapularis muscle. Associated edema/effusion. Atrophy of the teres minor muscle and tendinosis of the insertional fibers of its tendon. Elevation of the humeral head with narrowing of the subacromial space. Degenerative fibrocystic changes at the humeral insertion of the rotator cuff tendons. Fluid signal and edema in the subdeltoid/subacromial bursa suggestive of bursitis and/or impingement. The remaining visualized osseous elements are intact with no evidence of fracture or dislocation. The remaining marrow signal is within normal limits. The visualized hyaline cartilage is diffusely degenerated. Severe degenerative joint disease of the glenohumeral joint. The glenoid labrum is diffusely truncated and macerated. There is moderate glenohumeral joint effusion. Medial subluxation of the biceps tendon. Moderate bicipital tendinosis. MRI/Upper Ext Joint Only(Routine) IMPRESSION: 1. Heterogeneous signal intensity of the visualized bone marrow, probably osteo penia. 2. Type III acromion. 3. 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 4. Findings are demonstrated by joint space narrowing, osteophyte formation and degenerative periarticular bone marrow changes. 5. Narrowing of the supraspinatus outlet and impingement on its myotendinous ju nction. 6. Surgical changes of the supraspinatus tendon. 7. Tendinosis with moderate partial thickness tear of the insertional fibers of the supraspinatus tendon. Severe chronic atrophy of the supraspinatus muscle. Associated edema/effusion. 8. Tendinosis with moderate partial thickness tear of the insertional fibers of the infraspinatus tendon. Severe chronic atrophy of the infraspinatus muscle. Associated edema/effusion. 9. Tendinosis with moderate partial thickness tear of the insertional fibers of the subscapularis tendon. Severe chronic atrophy of the subscapularis muscle. Associated edema/effusion. 10. Atrophy of the teres minor muscle and tendinosis of the insertional fibers of its tendon. 11. 12. Elevation of the humeral head with narrowing of the subacromial space. 13. Degenerative fibrocystic changes at the humeral insertion of the rotator cu ff tendons. 14. Fluid signal and edema in the subdeltoid/subacromial bursa suggestive of bu rsitis and/or impingement. Reading Location: [facility]
== END | disposition home or self-care (01) ==
LOC: MRI 15:48
PROVIDERS: PCP Family Medicine; Referring Provider Orthopaedic Surgery Sports Medicine; Visit Provider Orthopaedic Surgery Sports Medicine
DX: M25.511 Pain in right shoulder (principal); M75.101 Unspecified rotator cuff tear or rupture of right shoulder, not specified as traumatic; M12.811 Other specific arthropathies, not elsewhere classified, right shoulder
CPT/HCPCS: 73221

== ENCOUNTER → 2024-11-19 | Outpatient (CLI) | payer MEDICARE, SELFPAY | END | disposition home or self-care (01) | LOC: PSN 12:46 | PROVIDERS: PCP Family Medicine; Referring Provider Internal Medicine Cardiovascular Disease; Visit Provider Internal Medicine Cardiovascular Disease | DX: Z51.81 Encounter for therapeutic drug level monitoring (principal); Z79.899 Other long term (current) drug therapy | CPT/HCPCS: 94060; 94726; 94729 ==

== ENCOUNTER → 2024-12-05 | Outpatient (CLI) | payer MEDICARE, SELFPAY ==
[2024-12-05 17:41] LABS: Hematocrit 35.2 % (40-54); Hemoglobin 11.7 g/dL (13.0-16.5); Immature Granulocytes Count 0.020 X10^3/uL (0.0-0.0); Mean Corp Hgb Conc 33.2 g/dL (32-36); Mean Corpuscular Volume 102.0 fL (80-94); Mean Platelet Vol. 9.5 fl (6.2-12.0); NRBC Flagged by Analyzer 0 % (0-5); Platelet Count 175 K/mm3 (150-450); RBC Distribution Width CV 15.9 % (11.6-14.6); RBC Distribution Width SD 59.7 fl (35.1-43.9); Red Blood Count 3.45 M/mm3 (4.6-6.2); White Blood Count 5.8 K/mm3 (4.4-11.0)
[2024-12-05 18:23] LABS: AST(SGOT) 28 U/L (<=37); Alanine Aminotransfer ALT/SGPT 21 U/L (<=46); Albumin, Serum 4.2 g/dL (3.4-4.8); Alkaline Phosphatase 60 U/L (40-129); Anion Gap 10 (5-15); BUN 14 mg/dL (4-19); BUN/Creat Ratio 15.0 RATIO (10-20); Calcium,Total 8.9 mg/dL (7.6-11.0); Carbon Dioxide 24.6 mmol/L (21.0-32.0); Chloride 96 mmol/L (98-108); Ferritin 765 ng/mL (37-417); Globulin 2.6 g/dL (2.2-4.2); Glucose 93 mg/dL (70-99); Potassium 4.9 mmol/L (3.3-5.1)
[2024-12-05 18:35] LABS: Iron 55 ug/dL (65-175); Iron Binding Capacity,Total 260 ug/dL (250-450); Iron Binding Capacity,Unsat 205 ug/dL (228-428); LDH 268 U/L (87-241)
== END | disposition home or self-care (01) ==
LOC: MTLAB 16:34
PROVIDERS: Internal Medicine Medical Oncology; PCP Family Medicine; Referring Provider Internal Medicine Rheumatology; Visit Provider Internal Medicine Rheumatology
DX: M05.70 Rheumatoid arthritis with rheumatoid factor of unspecified site without organ or systems involvement (principal); D50.9 Iron deficiency anemia, unspecified; Z79.899 Other long term (current) drug therapy
CPT/HCPCS: 80053; 82728; 83540; 83550; 83615; 85025

== ENCOUNTER → 2024-12-24 | Outpatient (CLI) | payer MEDICARE, SELFPAY ==
--- NOTE | 2024-12-24 09:10 | ECHOCS_ITS ---
Reason For Study Reason For Study: PRE OP- Procedure This was a 2D Doppler, Color Flow transthoracic echocardiogram. Contrast injection was performed. Exam performed in department. Left Ventricle Normal size and thickness. Apical akinesis to dyskinesis. Estimated LVEF 40%. Grade 2 diastolic function with elevated left atrial filling pressures. Cannot exclude small LV apical thrombus. Right Ventricle Normal right ventricle. Atria The left atrium is moderately enlarged. The right atrium is mildly enlarged. Mitral Valve Moderate (2+) mitral valve insufficiency. Tricuspid Valve Mild tricuspid valve insufficiency. Estimated RVSP 53 mmHg. Aortic Valve Moderately calcified aortic valve. Severe aortic valve stenosis. Planimetered aortic valve area 0.87 cm??. Mean peak gradient 30 mmHg. Mild aortic valve regurgitation. Pulmonic Valve The pulmonic valve is not well visualized. Trivial pulmonic valve insufficiency. Great Vessels Normal sized aortic root. Pericardium/Pleural Trivial pericardial effusion. Medication 22 gauge I.V. with prn adaptor inserted into left arm. Diluted definity 3ml given slow IV push to enhance endocardial definition. MMode/2D Measurements & Calculations LVIDd: 4.8 cm IVSd: 1.0 cm LVOT diam: 1.9 cm LVIDs: 3.2 cm LVPWd: 1.1 cm RVDd: 3.8 cm FS: 32.6 % LVOT area: 3.0 cm2 LA dimension: 4.6 cm asc Aorta Diam: 3.8 cm LAV(MOD-bp): 55.6 ml LAV(MOD-bp) Indexed: 34.8 ml/m2 LAV(MOD-sp2): 59.7 ml LAV(MOD-sp4): 49.0 ml SV(MOD-sp4): 60.1 ml LVAd ap4: 40.6 cm2 LVAd ap2: 35.2 cm2 LVLd ap4: 9.8 cm LVLd ap2: 9.5 cm SI(MOD-sp4): 37.6 ml/m2 EDV(MOD-sp4): 136.3 ml EDV(MOD-sp2): 104.9 ml EDV(sp4-el): 143.6 ml EDV(sp2-el): 110.0 ml LVAs ap4: 29.9 cm2 LVAs ap2: 25.5 cm2 LVLs ap4: 9.2 cm LVLs ap2: 9.1 cm ESV(MOD-sp4): 76.2 ml ESV(MOD-sp2): 58.0 ml ESV(sp4-el): 82.7 ml ESV(sp2-el): 60.8 ml EF(MOD-sp4): 44.1 % EF(MOD-sp2): 44.7 % EF(sp4-el): 42.4 % SV(MOD-sp2): 46.9 ml SV(sp4-el): 60.9 ml Ao sinus diam: 3.6 cm SI(MOD-sp2): 29.3 ml/m2 Ao ST Junction: 3.0 cm Aortic Valve Planimetry: 0.87 cm2 LA A4 area: 20.5 cm2 LA dimension(2D): 4.7 cm RA A4 area: 16.7 cm2 TAPSE: 1.8 cm Time Measurements MV dec time: 0.21 sec Doppler Measurements & Calculations MV E max pardeep: 116.1 cm/sec Lat Peak E' Pardeep: 6.8 cm/sec Med Peak E' Pardeep: 5.3 cm/sec MV A max pardeep: 65.1 cm/sec E/E' lat: 17.0 E/E' med: 21.8 MV E/A: 1.8 MV V2 max: 130.4 cm/sec Ao V2 max: 358.6 cm/sec MV max P.8 mmHg MV dec slope: 541.8 cm/sec2 Ao max P.5 mmHg MV V2 mean: 62.7 cm/sec Ao V2 mean: 260.5 cm/sec MV mean P.0 mmHg Ao mean P.9 mmHg MV V2 VTI: 42.6 cm Ao V2 VTI: 106.3 cm AV (velocity ratio): 0.23 MVA(VTI): 1.7 cm2 LEYLA(I,D): 0.69 cm2 LEYLA(V,D): 0.71 cm2 LV V1 max: 85.6 cm/sec SV(LVOT): 73.1 ml PA V2 max: 96.0 cm/sec LV V1 max P.9 mmHg LV V1 mean P.7 mmHg LV V1 mean: 60.8 cm/sec LV V1 VTI: 24.6 cm TR max pardeep: 309.0 cm/sec TR max P.2 mmHg ECHO/Echo Complete W/ Contrast Interpretation Summary Apical akinesis to dyskinesis. Estimated LVEF 40%. Grade 2 diastolic function w ith elevated left atrial filling pressures. Cannot exclude small LV apical thrombus. Recommend cardiac MRI or NONI for [facility] evaluation. Moderately dilated left atrium. Mildly dilated right atrium. Moderate (2+) mitral valve insufficiency. Mild tricuspid valve insufficiency. Estimated RVSP 53 mmHg. Moderately calcified aortic valve. Severe aortic valve stenosis. Planimetered a ortic valve area 0.87 cm??. Mean peak gradient 30 mmHg. Mild aortic valve regurgitation. Ordering Physician: Jem Mirza Referring Physician: Jorge Hilton Performed By: Marisa Manzanares RDCS
== END | disposition home or self-care (01) ==
PROVIDERS: PCP Family Medicine; Referring Provider Internal Medicine Cardiovascular Disease; Visit Provider Internal Medicine Cardiovascular Disease
DX: I35.0 Nonrheumatic aortic (valve) stenosis (principal)
CPT/HCPCS: 93306; Q9957; A4216; C8929

== ENCOUNTER 2025-01-08 15:44 | Emergency (ER) | payer OTHER, SELFPAY ==
[2025-01-08 15:46] VITALS: BP 127/63; PULSE 59; RESP 18; TEMP 37; O2SAT 93
[2025-01-08 15:50] VITALS: BMI 26.9
--- NOTE | 2025-01-08 16:19 | CT_ITS ---
PROCEDURE: SPINE CERVICAL WITHOUT CONTRAS 01/08/2025 REASON FOR EXAM: FALL TECHNIQUE: SPINE CERVICAL WITHOUT CONTRAS Coronal and Sagittal reconstruction series were provided. One or more dose reduction techniques were used (e.g., Automated exposure control, adjustment of the mA and/or kV according to patient size, use of iterative reconstruction technique. RADIATION DOSE SUMMARY: CTDlvol: 44 mGy DLP: 1159 mGycm COMPARISON: 01/25/2022 radiograph. FINDINGS: No evidence of acute fracture or dislocation. Severe degenerative changes of the cervical spine. Grade 1 anterolisthesis of C7 on T1. Diffuse osseous demineralization. No acute soft tissue abnormalities. Of the lung apices are clear. CT/Spine Cervical without Contras IMPRESSION: No acute osseous abnormality. Severe spondylosis. Spondylolisthesis. Reading Location: [id number]
--- NOTE | 2025-01-08 16:19 | CT_ITS ---
PROCEDURE: BRAIN/HEAD WITHOUT CONTRAST 01/08/2025 REASON FOR EXAM: FALL TECHNIQUE: BRAIN/HEAD WITHOUT CONTRAST Coronal and Sagittal reconstruction series were provided. One or more dose reduction techniques were used (e.g., Automated exposure control, adjustment of the mA and/or kV according to patient size, use of iterative reconstruction technique. RADIATION DOSE SUMMARY: CTDlvol: 44 mGy DLP: 829 mGycm COMPARISON: 01/09/2024. FINDINGS: Moderate global parenchymal atrophy. Periventricular white matter hypodensity likely representing chronic microvascular ischemia. No evidence of acute hemorrhage or infarction. No extra-axial blood or fluid collections. The paranasal sinuses and mastoid air cells are clear. The calvarial vault and skull base are intact. CT/Brain/Head without Contrast IMPRESSION: No acute intracranial abnormality. Reading Location: [id number]
--- NOTE | 2025-01-08 16:33 | ED.VIS.FALL ---
HPI HPI - Fall History of Present Illness Chief Complaint: Fall Narrative Narrative: Patient is a 84-year-old male presenting to emergency department for a fall. Patient has extensive past medical history as below. Patient states that he was getting his lunch out of the fridge and his feet got tangled up and he fell on his right side. Denies hitting his head or any loss of consciousness. Denies any neck or back pain. He was unable to get up by himself so he called his daughter. He was able to walk afterwards. He is on Xarelto. She brought him here to be evaluated. He denied any chest pain, shortness of breath, palpitations, lightheadedness or dizziness before or after the fall. [place] a little jittery intermittently today but nothing out of the normal for him. States he is very clumsy and reports that he falls a lot. Patient endorses he has skin tear to his right arm and right hip pain. [facility] Medical History Severe aortic stenosis Bruising Walker as ambulation aid Bladder disease Prostate disease Shortness of breath on exertion Leg cramps History of pain when walking History of CHF (congestive heart failure) History of atrial fibrillation History of echocardiogram Cardiology follow-up encounter Right rotator cuff tear arthropathy Right shoulder pain [facility] (current) use of anticoagulants Secondary adrenal insufficiency Vitamin D deficiency Chronic edema Wears glasses Former smoker History of stress test History of heart attack Anemia Coronary artery disease Atherosclerotic heart disease of ambler coronary artery without angina pectoris BPH (benign prostatic hyperplasia) GERD (gastroesophageal reflux disease) Lumbar spinal stenosis Atrial fibrillation PAT (paroxysmal atrial tachycardia) SVT (supraventricular tachycardia) Rheumatoid arthritis Home Medications ?Medication ?Instructions ?Recorded ?Last Taken ?Type tamsulosin 0.4 mg capsule 0.4 mg PO DAILY@1800 Retention 07/18/20 05/31/23 History finasteride 1 mg tablet 5 mg PO DAILY prostate 12/30/20 05/31/23 History golimumab 12.5 mg/mL intravenous 12.5 mg IV .[id number] injection 05/31/22 05/29/23 History solution (Simponi ARIA) gabapentin 300 mg capsule 300 mg PO TID PRN PRN NERVE PAIN 10/20/22 05/31/23 History trazodone 100 mg tablet 100 mg PO QHS Check with primary 11/14/22 05/31/23 History doctor acetaminophen 500 mg tablet 1,000 mg (2 x 500 mg) PO Q8 #0 tabs 01/24/23 06/01/23 Rx denosumab 60 mg/mL subcutaneous 60 mg subcut [id number] #1 mL 03/10/23 04/11/23 Rx syringe (Prolia) methotrexate sodium 2.5 mg tablet 20 mg PO QWEEK 06/01/23 05/28/23 History sulfasalazine 500 mg 0.5 g PO Q12H 06/01/23 05/31/23 History tablet,delayed release ascorbic acid (vitamin C) 1,000 mg 1,000 mg PO QDAY 10/23/24 Unknown History capsule furosemide 40 mg tablet 40 mg PO QAM #90 tabs 10/23/24 Unknown Rx hydrocodone 7.5 mg-acetaminophen 1 tab PO BID pain 10/23/24 Unknown History 325 mg tablet mecobalamin (vitamin B12) 2,500 2,500 mcg PO DAILY 10/23/24 Unknown History mcg chewable tablet mirtazapine 15 mg tablet 7.5 mg PO QHS 10/23/24 Unknown History oxybutynin chloride 10 mg 10 mg PO QDAY 10/23/24 Unknown History tablet,extended release 24 hr rivaroxaban 15 mg tablet (Xarelto) 15 mg PO QDAY 90 days #90 tabs 10/23/24 Unknown Rx spironolactone 25 mg tablet 25 mg PO DAILY water pill #90 tabs 10/23/24 Unknown Rx turmeric root extract 500 mg 500 mg PO QDAY 10/23/24 Unknown History capsule atorvastatin 40 mg tablet (Lipitor) 40 mg PO QHS Cholesterol #90 tabs 12/09/24 Unknown Rx polysaccharide iron complex 150 mg 150 mg PO QDAY 90 days #90 caps 12/13/24 Unknown Rx iron capsule (Ferrex) amiodarone 200 mg tablet 200 mg PO DAILY heart rate #90 tabs 12/17/24 Unknown Rx Allergy/AdvReac Type Severity Reaction Status Date / Time No Known Allergies Allergy Verified 01/08/25 15:46 Family History Father CVA (cerebral vascular accident) Brother CAD (coronary artery disease) CABG X 3 Mother CVA (cerebral vascular accident) Grandfather Cancer prostate Surgical History History of cardiac catheterization History of coronary artery stent placement Hx of colectomy Hx of transurethral resection of prostate Hx of laminectomy History of lumbar surgery History of coronary artery stent placement (08/06/20) H/O colonoscopy S/P left colectomy S/P appendectomy S/P hemorrhoidectomy S/P vasectomy S/P laparoscopic cholecystectomy H/O umbilical hernia repair S/P inguinal hernia repair S/P rotator cuff repair S/P cataract surgery Social History household members: none housing: house current occupational status: retired Smoking Status: Former smoker how long ago did patient quit smokin years ago alcohol intake: never substance use type: does not use diet: low salt caffeine: Yes Type: coffee Number of servings: 4 ROS ROS ED ROS Narrative see HPI EXAM Physical Exam Narrative Exam Narrative: Vital signs: Reviewed General: Alert and oriented. No acute distress. Chronically unwell appearing. HEENT: Head is normocephalic and atraumatic, sinuses nontender, pupils equal round and reactive. Nares are patent. Oropharynx and throat exams normal. Neck: Supple without lymphadenopathy nontender. No midline cervical spinal tenderness to palpation. No step-offs or deformities. Cardiovascular: Regular rate and rhythm, no murmurs. No rubs or gallops. Normal S1 and S2 Respiratory: Clear to auscultation bilaterally. No wheezes, rales, rhonchi Abdominal: Soft and nontender. Normal bowel sounds. No guarding or rebound. Nonsurgical abdomen Extremities: No midline thoracic or lumbar spinal tenderness to palpation. No step-offs or deformities. The right hip is mildly tender to palpation on the lateral portion. There is a skin tear to the right elbow and right dorsal portion of the hand. The extremity is nontender to palpation with normal range of motion at elbow and wrist. ROM at shoulder is limited which patient states is baseline. Lower extremities with pitting edema bilaterally with no erythema or warmth. Bilateral lower extremities and left upper extremity are atraumatic and nontender palpation with normal range of motion. Skin: Skin tears as stated above. Neurological: Cranial nerves II through XII are grossly intact. Normal strength and sensation. Normal cerebellar function The rest of the physical exam is unremarkable Const Vital Signs: 01/08/25 15:46 01/08/25 18:02 Temperature 98.6 F Temperature Source Temporal Pulse Rate 59 L Respiratory Rate 18 Respiratory Effort Normal Non-Labored Blood Pressure 127/63 H Blood Pressure Mean 84 Pulse Ox 93 Oxygen Delivery Method Room Air MDM MDM MDM Narrative Medical decision making narrative: Patient is a 84-year-old male presenting to the emergency department for mechanical fall. Patient was seen and examined. Vitals are stable. Patient resting in bed comfortably in no acute distress. Patient states that he tripped over his feet causing him to fall. Denied any prodromal symptoms that caused him to fall. Able to ambulate. Given the patient is on Xarelto, CT brain and cervical spine were ordered. X-rays of the right elbow and forearm as well as the right hip were obtained. Tetanus is up-to-date from 2022. Wounds were irrigated by nursing staff. CT brain shows no acute intracranial abnormalities. CT cervical spine shows no acute osseous abnormalities. X-rays were reviewed by myself and I see no fracture or dislocations. Forearm, elbow and hip x-rays are negative for acute fracture or dislocation on radiology read. For the skin tears on his right elbow and right dorsal portion of his hand, Steri-Strips were applied and an abdominal pad dressing was applied over top of these to help with protection if he hits the area on anything. Patient and daughter were given wound care instructions. Instructed to follow-up with PCP in 1 to 2 days. Patient discharged from the Emergency Department. I do not feel that the patient's evaluation reveals any acute reason for admission at this time. I instructed them to either follow-up with their primary care physician or promptly return to the Emergency Department for reevaluation should symptoms worsen or new symptoms develop. I explained what symptoms would indicate the need to return to the emergency department. Shared decision making was used. The patient voiced understanding of the treatment plan and is agreeable with it. Clinical impression: Mechanical fall Skin abrasion Right hip pain Right arm pain History & Record Review Discussion w/independent historian: Patient and Family Radiography X-Ray: Right Hip, Read by ED Physician and No Fracture Diagnostic Testing: Clinical Impression(s) from Imaging Studies Brain CT 01/08/25 16:19 IMPRESSION: No acute intracranial abnormality. Reading Location: [facility] Cervical Spine CT 01/08/25 16:19 IMPRESSION: No acute osseous abnormality. Severe spondylosis. Spondylolisthesis. Reading Location: [facility] Elbow X-Ray 01/08/25 16:50 IMPRESSION: No acute fracture or dislocation. Reading Location: [facility] Forearm X-Ray 01/08/25 16:50 IMPRESSION: No acute fracture or dislocation. Reading Location: [facility] Hip/Pelvis X-Ray 01/08/25 16:50 IMPRESSION: No evidence of acute fracture or dislocation. Reading Location: [facility] Discharge Plan Triage Chief Complaint: Fall ED Provider: Tran Stewart Dx/Rx/DC Orders Clinical Impression: Fall, Skin tear Instructions: Preventing Falls: Staying Active, ED Fall Prevention Prescriptions: No Action finasteride 1 mg tablet 5 mg PO DAILY Prolia 60 mg/mL syringe 60 mg subcut [id number] Qty: 1 1RF turmeric root extract 500 mg capsule 500 mg PO QDAY mecobalamin (vitamin B12) 2,500 mcg tablet,chewable 2,500 mcg PO DAILY ascorbic acid (vitamin C) 1,000 mg capsule 1,000 mg PO QDAY oxybutynin chloride 10 mg tablet extended release 24hr 10 mg PO QDAY hydrocodone-acetaminophen 7.5-325 mg tablet 1 tab PO BID Xarelto 15 mg tablet 15 mg PO QDAY 90 Days Qty: 90 3RF Patient Comments: WILL CHECK WITH [facility] ON WHEN STOP TAKING furosemide 40 mg tablet 40 mg PO QAM Qty: 90 3RF spironolactone 25 mg tablet 25 mg PO DAILY Qty: 90 3RF polysaccharide iron complex [Ferrex 150] 150 mg iron capsule 150 mg PO QDAY 90 Days Qty: 90 3RF tamsulosin 0.4 MG capsule 0.4 mg PO DAILY@1800 trazodone 100 mg tablet 100 mg PO QHS Simponi ARIA 12.5 mg/mL Solution 12.5 mg IV .[id number] Patient Comments: PT GOES TO GET INJECTION EVERY 8 WEEKS CAN NOT REMEMBER LAST SHOT NEXT DUE IS IN OCTOBER gabapentin 300 mg capsule 300 mg PO TID PRN PRN (Reason: NERVE PAIN) Patient Comments: Take 1 (one) Capsule by mouth three times daily, as needed acetaminophen 500 mg Tablet 1,000 mg PO Q8 Qty: 0 0RF methotrexate sodium 2.5 mg tablet 20 mg PO QWEEK sulfasalazine 500 mg tablet,delayed release (DR/EC) 0.5 g PO Q12H mirtazapine 15 mg tablet 7.5 mg PO QHS atorvastatin [Lipitor] 40 mg tablet 40 mg PO QHS Qty: 90 3RF amiodarone 200 mg tablet 200 mg PO DAILY Qty: 90 3RF Primary Care Provider: Jorge Hilton Referrals: Jorge Hilton MD [Primary Care Provider] - 2 Days Activity Restrictions/Additional Instructions: Your evaluation in the Emergency Department did not reveal any acute reason for admission. However, I want to emphasize that you may be early in the course of a disease process or illness even if it is not present. For this reason you should follow-up within 24 hours for reevaluation with either your primary care physician or if necessary back here in the Emergency Department. You should return to the Emergency Department immediately if your symptoms worsen or new symptoms develop. Print Language: Chinese Disposition Disposition: Home, Self Care
--- NOTE | 2025-01-08 16:50 | RAD_ITS ---
PROCEDURE: RIGHT HIP, UNI W/ PELVIS 2-3 VIEWS 01/08/2025 REASON FOR EXAM: HIP PAIN, FALL TECHNIQUE: RIGHT HIP, UNI W/ PELVIS 2-3 VIEWS COMPARISON: 05/11/2021 FINDINGS: No evidence of acute fracture or dislocation. Bilateral hip joints are preserved with mild degenerative arthrosis. Chronic compression fracture deformity of L5 vertebra with kyphoplasty bone cement. Qualitative osteopenia. Grossly unremarkable soft tissues. Atherosclerotic vascular calcifications. RAD/HIP, UNI W/ Pelvis 2-3 Views IMPRESSION: No evidence of acute fracture or dislocation. Reading Location: [id number]
--- NOTE | 2025-01-08 16:50 | RAD_ITS ---
PROCEDURE: RIGHT FOREARM 2 VIEWS; RIGHT ELBOW MIN 3 VIEWS 01/08/2025 REASON FOR EXAM: FALL TECHNIQUE: Frontal, lateral and oblique views of the right forearm and elbow COMPARISON: None. FINDINGS: No acute fracture or dislocation. Alignment is anatomic. Preserved joint spaces. No elbow joint effusion. Qualitative osteopenia. No marked soft tissue swelling. Atherosclerotic vascular calcifications. RAD/Elbow min 3 Views IMPRESSION: No acute fracture or dislocation. Reading Location: [id number]
--- NOTE | 2025-01-08 16:50 | RAD_ITS ---
PROCEDURE: RIGHT FOREARM 2 VIEWS; RIGHT ELBOW MIN 3 VIEWS 01/08/2025 REASON FOR EXAM: FALL TECHNIQUE: Frontal, lateral and oblique views of the right forearm and elbow COMPARISON: None. FINDINGS: No acute fracture or dislocation. Alignment is anatomic. Preserved joint spaces. No elbow joint effusion. Qualitative osteopenia. No marked soft tissue swelling. Atherosclerotic vascular calcifications. RAD/Forearm 2 Views IMPRESSION: No acute fracture or dislocation. Reading Location: [id number]
[2025-01-08 18:41] VITALS: BP 121/70; PULSE 61; RESP 17; TEMP 37; O2SAT 94
== END 2025-01-08 18:42 | disposition home or self-care (01) ==
PROVIDERS: Emergency Provider Student in an Organized Health Care Education/Training Program; PCP Family Medicine; Visit Provider Student in an Organized Health Care Education/Training Program
DX: S50.311A Abrasion of right elbow, initial encounter (principal); S60.511A Abrasion of right hand, initial encounter; W18.39XA Other fall on same level, initial encounter; M25.551 Pain in right hip; I25.10 Atherosclerotic heart disease of native coronary artery without angina pectoris; I25.2 Old myocardial infarction; Z95.5 Presence of coronary angioplasty implant and graft; Z79.01 Long term (current) use of anticoagulants; Z79.899 Other long term (current) drug therapy; Z87.891 Personal history of nicotine dependence
CPT/HCPCS: 70450; 72125; 73080; 73090; 73502; 99282

== ENCOUNTER 2025-01-10 11:40 | Outpatient (CLI) | payer MEDICARE, SELFPAY ==
[2025-01-10 11:54] VITALS: BP 109/52; PULSE 67; RESP 16; TEMP 36.8; O2SAT 95; BMI 27.8
[2025-01-10] MEDS: NORMAL SALINE 0.9% IV (12:21)
[2025-01-10] MEDS: GOLIMUMAB IV (12:21)
[2025-01-10 13:08] VITALS: BP 126/58; PULSE 54; RESP 14; TEMP 36.3; O2SAT 93
== END 2025-01-10 23:59 | disposition home or self-care (01) ==
LOC: MEDOUTP 11:41
PROVIDERS: PCP Family Medicine; Referring Provider Internal Medicine Rheumatology; Visit Provider Internal Medicine Rheumatology
DX: M05.70 Rheumatoid arthritis with rheumatoid factor of unspecified site without organ or systems involvement (principal)
CPT/HCPCS: 96365; A4216; J1602

== ENCOUNTER → 2025-01-13 | Outpatient (CLI) | payer MEDICARE, SELFPAY ==
[2025-01-13 17:49] LABS: Hematocrit 34.1 % (40-54); Hemoglobin 11.4 g/dL (13.0-16.5); Immature Granulocytes Count 0.010 X10^3/uL (0.0-0.0); Mean Corp Hgb Conc 33.4 g/dL (32-36); Mean Corpuscular Volume 100.6 fL (80-94); Mean Platelet Vol. 9.6 fl (6.2-12.0); NRBC Flagged by Analyzer 0 % (0-5); Platelet Count 208 K/mm3 (150-450); RBC Distribution Width CV 14.7 % (11.6-14.6); RBC Distribution Width SD 54.2 fl (35.1-43.9); Red Blood Count 3.39 M/mm3 (4.6-6.2); White Blood Count 5.8 K/mm3 (4.4-11.0)
[2025-01-13 18:15] LABS: Anion Gap 12 (5-15); BUN 14 mg/dL (4-19); BUN/Creat Ratio 16.5 RATIO (10-20); Calcium,Total 9.2 mg/dL (7.6-11.0); Carbon Dioxide 27.1 mmol/L (21.0-32.0); Chloride 93 mmol/L (98-108); Glucose 87 mg/dL (70-99); Potassium 4.4 mmol/L (3.3-5.1)
== END | disposition home or self-care (01) ==
LOC: MFPLAB 15:02
PROVIDERS: PCP Family Medicine; Visit Provider Family Medicine
DX: T14.90XA Injury, unspecified, initial encounter (principal); W19.XXXA Unspecified fall, initial encounter
CPT/HCPCS: 36415; 80048; 85025

== ENCOUNTER → 2025-02-17 | Day surgery (SDC) | payer MEDICARE, SELFPAY ==
[2024-12-17 14:39] LABS: Hematocrit 35.2 % (40-54); Hemoglobin 11.5 g/dL (13.0-16.5); Immature Granulocytes Count 0.010 X10^3/uL (0.0-0.0); Mean Corp Hgb Conc 32.7 g/dL (32-36); Mean Corpuscular Volume 102.6 fL (80-94); Mean Platelet Vol. 9.3 fl (6.2-12.0); NRBC Flagged by Analyzer 0 % (0-5); Platelet Count 184 K/mm3 (150-450); RBC Distribution Width CV 15.2 % (11.6-14.6); RBC Distribution Width SD 57.6 fl (35.1-43.9); Red Blood Count 3.43 M/mm3 (4.6-6.2); White Blood Count 4.3 K/mm3 (4.4-11.0)
[2024-12-17 14:55] LABS: Prothrombin Time (Protime)PT. 12.3 SECONDS (11.7-14.9)
[2024-12-17 14:56] LABS: Partial Thromboplast Time 30.1 Seconds (24.1-36.2)
[2024-12-17 16:37] LABS: Anion Gap 10 (5-15); BUN 16 mg/dL (4-19); BUN/Creat Ratio 17.2 RATIO (10-20); Calcium,Total 9.0 mg/dL (7.6-11.0); Carbon Dioxide 25.8 mmol/L (21.0-32.0); Chloride 96 mmol/L (98-108); Glucose 88 mg/dL (70-99); Magnesium 2.3 mg/dL (1.5-2.2); Potassium 4.4 mmol/L (3.3-5.1)
--- NOTE | 2024-12-18 19:26 | PAT.ANESEVAL ---
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 When Was Last Pacemaker Check QUESTION #4 FULL TEXT: You/Your Family Experience fever (hyperthermia) with Anesthesia Last Oral Intake Last Oral intake: Last Oral Intake NPO since Meds taken in AM with sips of water? Meds patient instructed to take am of surgery PONV PONV - fur blowing machine operator: PONV - fur blowing machine operator Female No 12/11/24 09:26 HX of Motion Sickness No 12/11/24 09:26 HX of N/V After Surgery No 12/11/24 09:26 Non-Smoker Yes 12/11/24 09:26 Duration of Surgery greater Yes 12/11/24 09:26 than 60 minutes Number of Risk Factors 2 12/11/24 09:26 PONV Score Moderate Risk 12/11/24 09:26 Height & Weight Height & Weight: Anesthesia: Height & Weight Height 5 ft 1 in 11/25/24 15:24 Respiratory Assessment Respiratory Assessment - fur blowing machine operator: Respiratory Tract Infection Hx - fur blowing machine operator Hx Respiratory Tract Infection No 12/11/24 09:26 STOP Sleep Apnea STOP Sleep Apnea - fur blowing machine operator: STOP Sleep Apnea - fur blowing machine operator Hx Hypertension No 12/11/24 09:26 Hx Sleep Apnea No 12/11/24 09:26 CPAP No 08/19/24 11:30 BIPAP No 08/19/24 11:30 Do you snore loudly (louder No 12/11/24 09:26 than talking or can be heard Do you often feel tired/ No 12/11/24 09:26 fatigued/ sleepy during daytime? Has anyone observed you stop No 12/11/24 09:26 breathing during sleep? STOP Results Negative 12/11/24 09:26 QUESTION #5 FULL TEXT : Do you snore loudly (louder than talking or can be heard through closed doors)? 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 Specify any problems Hx of Preganancy in last 3 N/A 12/11/24 09:26 Months [facility] 12/11/24 09:26 & Questions: Date: 12/11/24 12/11/24 09:26 Time: 09:39 12/11/24 09:26 Patient unable to answer at this time (ie. confused, unrespo /Reproduction History /Reproductive History - fur blowing machine operator: /Reproductive Hx- fur blowing machine operator Hx Now No 12/11/24 09:26 Gestational Age (in weeks): EDC: Hx Hx Para Hx Section SAB No 12/11/24 09:26 [facility] Medical History (Updated 12/12/24 @ 12:[address] 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 Secondary adrenal insufficiency Vitamin D deficiency Chronic edema Wears glasses Former smoker History of stress test History of heart attack Anemia Coronary artery disease Atherosclerotic heart disease of [place] coronary artery without angina pectoris BPH (benign prostatic hyperplasia) GERD (gastroesophageal reflux disease) Lumbar spinal stenosis Atrial fibrillation PAT (paroxysmal atrial tachycardia) SVT (supraventricular tachycardia) Rheumatoid arthritis Home Medications ?Medication ?Instructions ?Recorded ?Last Taken ?Type tamsulosin 0.4 mg capsule 0.4 mg PO DAILY@1800 Retention 07/18/20 05/31/23 History finasteride 1 mg tablet 5 mg PO DAILY prostate 12/30/20 05/31/23 History golimumab 12.5 mg/mL intravenous 12.5 mg IV .[id number] injection 05/31/22 05/29/23 History solution (Simponi ARIA) gabapentin 300 mg capsule 300 mg PO TID PRN PRN NERVE PAIN 10/20/22 05/31/23 History trazodone 100 mg tablet 100 mg PO QHS Check with primary 11/14/22 05/31/23 History doctor acetaminophen 500 mg tablet 1,000 mg (2 x 500 mg) PO Q8 #0 tabs 01/24/23 06/01/23 Rx denosumab 60 mg/mL subcutaneous 60 mg subcut [id number] #1 mL 03/10/23 04/11/23 Rx syringe (Prolia) methotrexate sodium 2.5 mg tablet 20 mg PO QWEEK 06/01/23 05/28/23 History sulfasalazine 500 mg 0.5 g PO Q12H 06/01/23 05/31/23 History tablet,delayed release ascorbic acid (vitamin C) 1,000 mg 1,000 mg PO QDAY 10/23/24 Unknown History capsule furosemide 40 mg tablet 40 mg PO QAM #90 tabs 10/23/24 Unknown Rx hydrocodone 7.5 mg-acetaminophen 1 tab PO BID pain 10/23/24 Unknown History 325 mg tablet mecobalamin (vitamin B12) 2,500 2,500 mcg PO DAILY 10/23/24 Unknown History mcg chewable tablet mirtazapine 15 mg tablet 7.5 mg PO QHS 10/23/24 Unknown History oxybutynin chloride 10 mg 10 mg PO QDAY 10/23/24 Unknown History tablet,extended release 24 hr rivaroxaban 15 mg tablet (Xarelto) 15 mg PO QDAY 90 days #90 tabs 10/23/24 Unknown Rx spironolactone 25 mg tablet 25 mg PO DAILY water pill #90 tabs 10/23/24 Unknown Rx turmeric root extract 500 mg 500 mg PO QDAY 10/23/24 Unknown History capsule atorvastatin 40 mg tablet (Lipitor) 40 mg PO QHS Cholesterol #90 tabs 12/09/24 Unknown Rx polysaccharide iron complex 150 mg 150 mg PO QDAY 90 days #90 caps 12/13/24 Unknown Rx iron capsule (Ferrex) amiodarone 200 mg tablet 200 mg PO DAILY heart rate #90 tabs 12/17/24 Unknown Rx Allergy/AdvReac Type Severity Reaction Status Date / Time No Known Allergies Allergy Verified 12/12/24 11:49 Family History Father CVA (cerebral vascular accident) Brother CAD (coronary artery disease) CABG X 3 Mother CVA (cerebral vascular accident) Grandfather Cancer prostate Surgical History History of cardiac catheterization History of coronary artery stent placement Hx of colectomy Hx of transurethral resection of prostate Hx of laminectomy History of lumbar surgery History of coronary artery stent placement (08/06/20) H/O colonoscopy S/P left colectomy S/P appendectomy S/P hemorrhoidectomy S/P vasectomy S/P laparoscopic cholecystectomy H/O umbilical hernia repair S/P inguinal hernia repair S/P rotator cuff repair S/P cataract surgery Social History household members: none housing: house current occupational status: retired Smoking Status: Former smoker how long ago did patient quit smokin years ago alcohol intake: never substance use type: does not use diet: low salt caffeine: Yes Type: coffee Number of servings: 4 Audit: Pertinent Findings Pertinent Findings EKG Perinent findings: December 16, 2024. Sinus rhythm with first-degree AV block with occasional PSVC's. Possible anterior myocardial infarction seen as far back as 2018. Stress test pertinent findings: 03/04/2019. Patient reached a capacity of 5.8 METS. Baseline EKG demonstrated normal sinus rhythm with possible prior anterior CT. No significant ischemic changes on EKG. Functional capacity is average for age. Echo (EF%) pertinent findings: September 23, 2022. EF of 50%. Moderate aortic stenosis. Heart catheterization pertinent findings: 08/06/2020. Successful PCI/GAGE of the OM 2. Unsuccessful PCI of the chronic total occlusion of the mid LAD. No aortic valve stenosis. Consult pertinent findings: October 23, 2024. Dr. Mirza. 1. Paroxysmal atrial fibrillation?chronic-maintaining sinus rhythm on amiodarone. Rivaroxaban for anticoagulation. Continue. 2. Encounter for monitoring amiodarone therapy?chronic-check TSH pulmonary function and liver test. 3 coronary artery disease?chronic-continue statins and rivaroxaban. 4. History of coronary artery stent placement?chronic-GAGE to the OM 2. 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 5. Aortic valve stenosis?chronic-check echo. Recommendation Anesthesia Recommendation Anesthesia recommendation: F/U recommended (Last cardiology note 10/15/[address] Mirza asked for a echocardiogram. Was this done and can we get results?)
--- NOTE | 2024-12-24 15:23 | PAT.ANE_ITS ---
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 When Was Last Pacemaker Check QUESTION #4 FULL TEXT: You/Your Family Experience fever (hyperthermia) with Anesthesia Last Oral Intake Last Oral intake: Last Oral Intake NPO since Meds taken in AM with sips of water? 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 Female No 12/11/24 09:26 HX of Motion Sickness No 12/11/24 09:26 HX of N/V After Surgery No 12/11/24 09:26 Non-Smoker Yes 12/11/24 09:26 Duration of Surgery greater Yes 12/11/24 09:26 than 60 minutes Number of Risk Factors 2 12/11/24 09:26 PONV Score Moderate Risk 12/11/24 09:26 Height & Weight Height & Weight: Anesthesia: Height & Weight Height 5 ft 1 in 12/12/24 11:45 Respiratory Assessment Respiratory Assessment - accounting technician: Respiratory Tract Infection Hx - accounting technician Hx Respiratory Tract Infection No 12/11/24 09:26 STOP Sleep Apnea STOP Sleep Apnea - accounting technician: STOP Sleep Apnea - accounting technician Hx Hypertension No 12/11/24 09:26 Hx Sleep Apnea No 12/11/24 09:26 CPAP No 08/19/24 11:30 BIPAP No 08/19/24 11:30 Do you snore loudly (louder No 12/11/24 09:26 than talking or can be heard Do you often feel tired/ No 12/11/24 09:26 fatigued/ sleepy during daytime? Has anyone observed you stop No 12/11/24 09:26 breathing during sleep? STOP Results Negative 12/11/24 09:26 QUESTION #5 FULL TEXT : Do you snore loudly (louder than talking or can be heard through closed doors)? 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 Specify any problems Hx of Preganancy in last 3 N/A 12/11/24 09:26 Months Nurse Filling Out Transfusion [facility] 12/11/24 09:26 & Questions: Date: 12/11/24 12/11/24 09:26 Time: 09:39 12/11/24 09:26 Patient unable to answer at this time (ie. 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: /Reproductive Hx- accounting technician Hx Now No 12/11/24 09:26 Gestational Age (in weeks): EDC: Hx Hx Para Hx Section SAB No 12/11/24 09:26 Active Medications Active Medications: Current Medications Generic Name Dose Route Start Last Admin Trade Name Claire PRN Reason Stop Dose Admin Acetaminophen 1,000 mg 12/25/24 07:30 Acetaminophen 500 Mg Tablet PO 12/25/24 07:31 PREOP ONE Dexamethasone Sodium Phosphate 10 mg 12/25/24 07:30 Dexamethasone 10 Mg/Ml Vial IV 12/25/24 07:31 INTRAOP ONE Gabapentin 600 mg 12/25/24 07:30 Gabapentin 600 Mg Tablet PO 12/25/24 07:31 PREOP ONE Cefazolin Sodium 2 gm/ Sodium 110 mls @ 150 mls/hr 12/25/24 07:30 Chloride IV 12/25/24 08:13 INTRAOP ONE Tranexamic Acid 1,000 mg/ 110 mls @ 660 mls/hr 12/25/24 07:30 Sodium Chloride IV 12/25/24 07:39 INTRAOP ONE Tranexamic Acid 1,000 mg/ 110 mls @ 660 mls/hr 12/25/24 07:30 Sodium Chloride IV 12/25/24 07:39 INTRAOP ONE Lactated Ringer's 1,000 mls @ 125 mls/hr 12/25/24 07:30 IV 12/25/24 15:29 .Q8H PATRICE Magnesium Sulfate 1 gm/ 102 mls @ 408 mls/hr 12/25/24 07:30 Dextrose IV 12/25/24 07:44 PREOP ONE Insulin Human Lispro 1 - 6 unit 12/25/24 07:30 Insulin Lispro 100 Unit/Ml Insuln.Pen SC 12/26/24 07:29 Q4H PRN PRN BG>/= 180, SEE PROTOCOL Protocol Scopolamine HBr 1 patch 12/25/24 07:30 Scopolamine 1mg/72hr Patch TD 12/25/24 07:31 PREOP ONE Vancomycin HCl 1,000 mg 12/25/24 07:30 Vancomycin 6 Gm Powder OPERA.SITE 12/25/24 07:31 INTRAOP ONE PFSH Medical History (Updated 12/12/24 @ 12:[address] 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 Secondary adrenal insufficiency Vitamin D deficiency Chronic edema Wears glasses Former smoker History of stress test History of heart attack Anemia Coronary artery disease Atherosclerotic heart disease of [place] coronary artery without angina pectoris BPH (benign prostatic hyperplasia) GERD (gastroesophageal reflux disease) Lumbar spinal stenosis Atrial fibrillation PAT (paroxysmal atrial tachycardia) SVT (supraventricular tachycardia) Rheumatoid arthritis Home Medications ?Medication ?Instructions ?Recorded ?Last Taken ?Type tamsulosin 0.4 mg capsule 0.4 mg PO DAILY@1800 Retenti on 07/18/20 05/31/23 History finasteride 1 mg tablet 5 mg PO DAILY prostate 12/3005/31/23 History golimumab 12.5 mg/mL intravenous 12.5 mg IV .[id number] i njection 05/31/22 05/29/23 History solution (Simponi ARIA) gabapentin 300 mg capsule 300 mg PO TID PRN PRN NERVE PAIN 10/20/22 05/31/23 History trazodone 100 mg tablet 100 mg PO QHS Check with estuardo oviedo 11/14/22 05/31/23 History doctor acetaminophen 500 mg tablet 1,000 mg (2 x 500 mg) PO Q 8 #0 tabs 01/24/23 06/01/23 Rx denosumab 60 mg/mL subcutaneous 60 mg subcut [id number] #1 mL 03/10/23 04/11/23 Rx syringe (Prolia) methotrexate sodium 2.5 mg tablet 20 mg PO QWEEK 06/0105/28/23 History sulfasalazine 500 mg 0.5 g PO Q12H 06/01/2305/31 History tablet,delayed release ascorbic acid (vitamin C) 1,000 mg 1,000 mg PO QDAY Unknown History capsule furosemide 40 mg tablet 40 mg PO QAM #90 tabs Unknown Rx hydrocodone 7.5 mg-acetaminophen 1 tab PO BID pain Unknown History 325 mg tablet mecobalamin (vitamin B12) 2,500 2,500 mcg PO DAILY Unknown History mcg chewable tablet mirtazapine 15 mg tablet 7.5 mg PO QHS 10/23/24 Unkno wn History oxybutynin chloride 10 mg 10 mg PO QDAY 10/23/24 Unkno wn History tablet,extended release 24 hr rivaroxaban 15 mg tablet (Xarelto) 15 mg PO QDAY 90 da ys #90 tabs 10/23/24 Unknown Rx spironolactone 25 mg tablet 25 mg PO DAILY water pill #90 tabs 10/23/24 Unknown Rx turmeric root extract 500 mg 500 mg PO QDAY 10/23/24 U nknown History capsule atorvastatin 40 mg tablet (Lipitor) 40 mg PO QHS Katarina sterol #90 tabs 12/09/24 Unknown Rx polysaccharide iron complex 150 mg 150 mg PO QDAY 90 d ays #90 caps 12/13/24 Unknown Rx iron capsule (Ferrex) amiodarone 200 mg tablet 200 mg PO DAILY heart rate # 90 tabs 12/17/24 Unknown Rx Allergy/AdvReac Type Severity Reaction Status Date / Time No Known Allergies Allergy Verified 12/12/24 11:49 Family History Father CVA (cerebral vascular accident) Brother CAD (coronary artery disease) CABG X 3 Mother CVA (cerebral vascular accident) Grandfather Cancer prostate Surgical History History of cardiac catheterization History of coronary artery stent placement Hx of colectomy Hx of transurethral resection of prostate Hx of laminectomy History of lumbar surgery History of coronary artery stent placement (08/06/20) H/O colonoscopy S/P left colectomy S/P appendectomy S/P hemorrhoidectomy S/P vasectomy S/P laparoscopic cholecystectomy H/O umbilical hernia repair S/P inguinal hernia repair S/P rotator cuff repair S/P cataract surgery Social History household members: none housing: house current occupational status: retired Smoking Status: Former smoker how long ago did patient quit smokin years ago alcohol intake: never substance use type: does not use diet: low salt caffeine: Yes Type: coffee Number of servings: 4 Audit: Pertinent Findings HISTORY of Pertinent Findings History of Pertinent Findings: EKG Pertinent Findings EKG Perinent findings December 16, 2024. Sinus rhythm 12/18/24 19:48 with first-degree AV block with occasional PSVC's. Possible anterior myocardial infarction seen as far back as 2018. Stress Test Pertinent Findings Stress test pertinent findings 03/04/2019. Patient reached 12/18/24 19:34 a capacity of 5.8 METS. Baseline EKG demonstrated normal sinus rhythm with possible prior anterior [place]. No significant ischemic changes on EKG. Functional capacity is average for age. Echo Pertinent Findings Echo (EF%) pertinent findings September 23, 2022. EF of 50%. 12/18/24 19:34 Moderate aortic stenosis. Heart Catheterization Pertinent Findings Heart catheterization 08/06/2020. Successful PCI/ 12/18/24 19:48 pertinent findings GAGE of the OM 2. Unsuccessful PCI of the chronic total occlusion of the mid LAD. No aortic valve stenosis. Consult Pertinent Findings Consult pertinent findings October 23, 2024. Dr. Mirza. 12/18/24 19:48 1. Paroxysmal atrial fibrillation?chronic- maintaining sinus rhythm on amiodarone. Rivaroxaban for anticoagulation. Continue. 2. Encounter for monitoring amiodarone therapy?chronic- check TSH pulmonary function and liver test. 3 coronary artery disease?chronic- continue statins and rivaroxaban. 4. History of coronary artery stent placement? chronic-GAGE to the OM 2. 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 5. Aortic valve stenosis? chronic-check echo. Pertinent Findings Echo (EF%) pertinent findings: December 24, 2024. EF of 40%. RVSP is 53 mmHg. Severe aortic valve stenosis. Recommendation Anesthesia Recommendation Anesthesia recommendation: F/U recommended (Spoke with Dr. Mirza who has read the most current echo. Apparently the patient has been referred for a TAVR procedure.)
== END | disposition home or self-care (01) ==
LOC: PAT 13:36
PROVIDERS: PCP Family Medicine; Referring Provider Orthopaedic Surgery Sports Medicine; Visit Provider Orthopaedic Surgery Sports Medicine
DX: Z01.818 Encounter for other preprocedural examination (principal); I50.9 Heart failure, unspecified; I48.91 Unspecified atrial fibrillation; Z87.891 Personal history of nicotine dependence; I25.10 Atherosclerotic heart disease of native coronary artery without angina pectoris; K21.9 Gastro-esophageal reflux disease without esophagitis; Z79.01 Long term (current) use of anticoagulants; I35.0 Nonrheumatic aortic (valve) stenosis; Z53.09 Procedure and treatment not carried out because of other contraindication; Z79.899 Other long term (current) drug therapy
CPT/HCPCS: 36415; 80048; 82985; 83036; 83735; 85025; 85610; 85730; 86850; 86900; 86901; 87077; 87081; J3475

== ENCOUNTER → 2025-03-03 | Outpatient (CLI) | payer MEDICARE, SELFPAY ==
[2025-03-03 21:25] LABS: AST(SGOT) 25 U/L (<=37); Alanine Aminotransfer ALT/SGPT 18 U/L (<=46); Albumin, Serum 3.9 g/dL (3.4-4.8); Alkaline Phosphatase 65 U/L (40-129); Bilirubin, Direct 0.42 mg/dL (0.00-0.30); Globulin 2.5 g/dL (2.2-4.2)
== END | disposition home or self-care (01) ==
LOC: MTLAB 16:10
PROVIDERS: PCP Family Medicine; Referring Provider Internal Medicine Rheumatology; Visit Provider Internal Medicine Rheumatology
DX: M05.70 Rheumatoid arthritis with rheumatoid factor of unspecified site without organ or systems involvement (principal); Z79.899 Other long term (current) drug therapy
CPT/HCPCS: 36415; 80076

== ENCOUNTER 2025-03-12 14:59 | Outpatient (CLI) | payer MEDICARE, SELFPAY ==
[2025-03-12 15:18] VITALS: BMI 27.3
[2025-03-12 15:20] VITALS: BP 110/46; PULSE 63; RESP 16; TEMP 36.2; O2SAT 92; BMI 27.3
[2025-03-12] MEDS: GOLIMUMAB IV (16:11)
[2025-03-12] MEDS: NORMAL SALINE 0.9% IV (16:11)
[2025-03-12 16:58] VITALS: BP 102/50; PULSE 57; RESP 16
== END 2025-03-12 23:59 | disposition home or self-care (01) ==
LOC: MEDOUTP 15:00
PROVIDERS: PCP Family Medicine; Referring Provider Internal Medicine Rheumatology; Visit Provider Internal Medicine Rheumatology
DX: M06.9 Rheumatoid arthritis, unspecified (principal)
CPT/HCPCS: 96365; J1602

== ENCOUNTER 2025-04-16 03:11 | Inpatient (IN) | payer OTHER, SELFPAY ==
[2025-04-16] VITALS (14 sets, daily range): BP systolic 90–149; BP diastolic 57–85; PULSE 55–76; RESP 16–18; TEMP 36.6–36.9; O2SAT 80–99; BMI 27.2; BMI 25.2; BMI 24.5
--- NOTE | 2025-04-16 03:31 | CT_ITS ---
PROCEDURE: SPINE LUMBAR WITHOUT CONTRAST 04/16/2025 REASON FOR EXAM: PAIN TECHNIQUE: Procedure Code: CTSPL Modality: CT Procedure: SPINE LUMBAR WITHOUT CONTRAST Coronal and Sagittal reconstruction series were provided. One or more dose reduction techniques were used (e.g., Automated exposure control, adjustment of the mA and/or kV according to patient size, use of iterative reconstruction technique COMPARISON: 30-Nov-2022 MRI RADIATION DOSE SUMMARY: CTDI Vol 22.99 mGy DLP :785.6 mGycm FINDINGS: Straightened lumbar lordosis denoting myospasm. 1st degree anterolisthesis of L4 with L4-L5 degenerative facet arthropathy Mild L1 and L5 retrolisthesis. Evidence of L1 and L5 vertebroplasty with L2 and L3 spinolaminectomy Reduced bone density with stable multilevel reduced vertebral bodies height and ventral wedging most evidently involving L2 level with currently detected T12 age indeterminate possibly subacute to old ventral wedging and subchondral sclerosis of its superior vertebral end plates. Cortical irregularities and sclerosis of S4 vertebra. Multilevel marginal lipping and sclerosis of the examined vertebral end plates. Multilevel reduced discs height with vacuum phenomenon. Multilevel degenerative facet arthropathy and hypertrophied ligamenta flava with calcifications. Multilevel diffuse disc bulges with posterior osteophytes/annular calcifications seen indenting the theca and inducing encroachment upon the neural exit foramina. Degenerative changes of the sacroiliac joints. No paraspinal soft tissue masses. Aortoiliac atheromatous calcifications. CT/Spine Lumbar without Contrast IMPRESSION: Straightened lumbar lordosis denoting myospasm. 1st degree anterolisthesis of L4 Mild L1 and L5 retrolisthesis. Evidence of L1 and L5 vertebroplasty with L2 and L3 spinolaminectomy Reduced bone density with stable multilevel reduced vertebral bodies height and ventral wedging most evidently involving L2 level with currently detected T12 age indeterminate possibly subacute to old ventral wedging and subchondral sclerosis of its superior vertebral end plates. Lumbar spondylosis with multilevel facet arthropathy and diffuse posterior disc bulges inducing encroachment upon the neural exit foramina. Reading Location: [place] [id number]
--- NOTE | 2025-04-16 03:31 | CT_ITS ---
PROCEDURE: SPINE CERVICAL WITHOUT CONTRAS 04/16/2025 REASON FOR EXAM: FALL TECHNIQUE: Procedure Code: CTSPC Modality: CT Procedure: SPINE CERVICAL WITHOUT CONTRAS Coronal and Sagittal reconstruction series were provided. One or more dose reduction techniques were used (e.g., Automated exposure control, adjustment of the mA and/or kV according to patient size, use of iterative reconstruction technique. RADIATION DOSE SUMMARY: CTDI Vol 16.68 mGy DLP :323.70 mGycm COMPARISON: 08-Jan-2025 FINDINGS: Straightened cervical lordosis denoting myospasm. Mild C7 anterolithesis. Reduced bone desnity The examined vertebral bodies show no structural collapse or posterior neural elements fractures. Intact atlanto-axial interval. Degenerative changes of the atlanto-axial articulation with related capsular calcifications. Cervical spondylodegenerative changes evident by marginal osteophytic lipping and multilevel subchondral sclerosis of the examined vertebral end plates with multilevel disc spaces narrowing. Multilevel degenerative unco-vertebral arthropathy with osteophytes formation seen encroaching upon the corresponding neural exit foramina. Multilevel degenerative facet arthropathy. Multilevel nuchal and anterior longitudinal ligament calcifications. Multilevel diffuse disc bulges with posterior osteophytes and annular calcifications indenting the theca and encroaching upon the related neural exit foramina. No paraspinal masses. Carotid atheromatous calcifications. Bilateral upper lung lobes apical reticulations. CT/Spine Cervical without Contras IMPRESSION: Straightened cervical curve denoting myospasm. No vertebral fractures, structural collapse or acute dislocation. Cervical spondylodegenerative changes with multilevel uncovertebral and facet a rthropathy along with diffuse disc bulges inducing spinal canal and neural exit pathway compromise. No interval changes. Reading Location[facility]
--- NOTE | 2025-04-16 03:31 | CT_ITS ---
PROCEDURE: BRAIN/HEAD WITHOUT CONTRAST 04/16/2025 REASON FOR EXAM: FALL TECHNIQUE: Procedure Code: CTBR Modality: CT Procedure: BRAIN/HEAD WITHOUT CONTRAST Coronal and Sagittal reconstruction series were provided. One or more dose reduction techniques were used (e.g., Automated exposure control, adjustment of the mA and/or kV according to patient size, use of iterative reconstruction technique. RADIATION DOSE SUMMARY: CTDlvol: 44 mGy DLP: 829 mGycm COMPARISON: 08-Jan-2025 FINDINGS: Bilateral cerebral subcortical and periventricular white matter patchy hypodensities, suggestive of chronic small vessel ischemia. Rawls-white matter differentiation is maintained. Falcine and tentorial calcifications noted. Scattered bilateral cerebral sulcal calcifications Unremarkable posterior fossa structures. No intracerebral or extra axial hemorrhage. Dilated ventricular system, cortical sulci and extra-axial CSF spaces. No definite calvarial fractures. No midline shifts or deformity. The osseous structures in the skull base are unremarkable. Paranasal sinuses show minimal maxillary sinusitis. Extensive vascular atheromatous calcifications. CT/Brain/Head without Contrast IMPRESSION: No acute cerebrovascular abnormalities. If clinical symptoms persist, further e valuation with MRI may be considered as clinically warranted. No intra or extra-axial acute hemorrhage. Bilateral cerebral microvascular ischemic changes with brain involutional mina es. Stable. Reading Location: [facility]
--- NOTE | 2025-04-16 03:31 | CT_ITS ---
PROCEDURE: CHEST WITHOUT CONTRAST 04/16/2025 REASON FOR EXAM: FALL TECHNIQUE: Chest CT without contrast. Coronal and Sagittal reconstruction series were provided. One or more dose reduction techniques were used (e.g., Automated exposure control, adjustment of the mA and/or kV according to patient size, use of iterative reconstruction technique RADIATION DOSE SUMMARY: DLP: 2859 mGycm COMPARISON: None FINDINGS: Hardware: There are suture anchors visible in the right proximal humerus. Vertebroplasty change is noted in the thoracic and lumbar spine. Lymph nodes: There is shotty mediastinal adenopathy, measuring less than 1 cm in short axis. Heart and Vasculature: Coronary artery calcifications are present. There is a pericardial effusion measuring 0.7 cm. Lungs and Airways: There are diffuse interstitial and alveolar infiltrates which may have a component of fibrosis. There is a 0.4 cm nodule in the right lower lung, image 70/125 Pleura: There is a 1.2 cm right pleural effusion. 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 There is no definite acute bony abnormality. 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 There is no definite acute bony abnormality. There is a pericardial effusion measuring 0.7 cm. There are diffuse interstitial and alveolar infiltrates which may have a compon ent of fibrosis. There is a 0.4 cm nodule in the right lower lung, image 70/125 follow-up is rec ommended. Reading Location: [facility]
--- NOTE | 2025-04-16 03:31 | CT_ITS ---
PROCEDURE: SPINE THORACIC WITHOUT CONTRAS 04/16/2025 REASON FOR EXAM: PAIN TECHNIQUE: Procedure Code: CTSPTH Modality: CT Procedure: SPINE THORACIC WITHOUT CONTRAS Coronal and Sagittal reconstruction series were provided. One or more dose reduction techniques were used (e.g., Automated exposure control, adjustment of the mA and/or kV according to patient size, use of iterative reconstruction technique). RADIATION DOSE SUMMARY: CTDlvol: 15.9 mGy DLP: 550 mGycm COMPARISON: 07/20/2022. FINDINGS: Moderate chronic compression deformities of T6 and T7 vertebral bodies with increased dorsal kyphosis. Prior vertebroplasty at L1. There are diffuse spondylotic changes. Findings are demonstrated to by diffuse disc space narrowing, osteophyte formation and degenerative endplate sclerosis. There is diffuse facet joint arthropathy with secondary bilateral neural foramina narrowing. No definite acute fracture or dislocation is seen. No aggressive lytic or blastic bony lesion is noted. CT/Spine Thoracic without Contras IMPRESSION: Moderate chronic compression deformities of T6 and T7 vertebral bodies with inc reased dorsal kyphosis. Prior vertebroplasty at L1. Reading Location[facility] [id number]
--- OUTSIDE RECORDS SUMMARY | 2025-04-16 03:47 | XMS RPT_ITS | CCD ---
Author Organization [facility] Care Team Providers Care Data Services Developer Name Role Phone Dr. Gloria Hazel Primary Care Provider 1([facility])[phone] Dr. Gloria Hazel Referring Provider 1([facility])[phone] Dr. Nikunj Saul Attending Provider 1([facility])[phone] [facility] PREVENTION COORDINATOR, PREVENTION COORDINATOR-Ron Dickinson Attending Provider 1([facility])[phone] Dr. Nikunj Saul Other Provider 1([facility])[phone] Gloria Hazel Primary Care Provider 1([facility] )[phone] Dr. Gloria Hazel Primary Care Provider 1([facility])[phone] Dr. Gloria Hazel Referring Provider 1([facility])[phone] Dr. Nikunj Saul Attending Provider 1([facility])[phone] Dr. Gloria Hazel Primary Care Provider 1([facility])[phone] Dr. Gloria Hazel Referring Provider 1([facility])[phone] Dr. Nikunj Saul Attending Provider 1([facility])[phone] Dr. Jorge Shields Attending Provider 1([facility])[phone] Dr. Jorge Shields Referring Provider 1([facility])[phone] Dr. Jorge Shields Other Provider 1([facility])[phone] Sammy Graham Attending Provider 1([facility])[phone] Gloria Hazel Primary Care Provider 1([facility])[phone] Dr. Gloria Hazel Referring Provider 1([facility])[phone] Dr. Jorge Shields Attending Provider 1([facility])[phone] Dr. Jorge Shields Referring Provider Dr. Jorge Shields Other Provider Dr. Sammy Graham Attending Provider Dr. Gloria Hazel Primary Care Provider Dr. Gloria Hazel Referring Provider Tracy PREVENTION COORDINATOR, PREVENTION COORDINATOR-C Nelda Varela Attending Provider Malissa PREVENTION COORDINATOR, PREVENTION COORDINATOR-C Salvatore Dickinson Attending Provider Dr. Gloria Hazel Primary Care Provider Dr. Gloria Hazel Referring Provider Malissa PREVENTION COORDINATOR, PREVENTION COORDINATOR-C Salvatore Dickinson Attending Provider Tracy PREVENTION COORDINATOR, PREVENTION COORDINATOR-C Nelda Varela Attending Provider Dr. Catalino Short Attending Provider Dr. Laith Garcia Attending Provider Dr. Apolinar Lozano Emergency Provider Dr. Aisha Vega Admit Provider Dr. Aisha Vega Attending Provider Dr. Aisha Vega Other Provider Dr. Gloria Hazel Primary Care Provider Dr. Gloria Hazel Referring Provider Malissa PREVENTION COORDINATOR, PREVENTION COORDINATOR-Ron Dickinson Attending Provider Tracy PREVENTION COORDINATOR, PREVENTION COORDINATOR-C Nelda Varela Attending Provider Dr. Catalino Short Attending Provider Dr. Laith Garcia Attending Provider Dr. Aisha Vega Referring Provider Dr. Apolinar Lozano Emergency Provider Dr. Aisha Vega Admit Provider Dr. Aisha Vega Attending Provider Dr. Aisha Vega Other Provider Dr. Maninder Clark Emergency Provider Dr. Dajuan Ayers Admit Provider Dr. Dajuan Ayers Attending Provider Dr. Dajuan Ayers Other Provider [phone] Kg, Dr. Calvin Attending Provider Dr. Gloria Hazel Primary Care Provider Dr. Gloria Hazel Referring Provider Dr. Dajuan Ayers Referring Provider [facility] PREVENTION COORDINATOR, PREVENTION COORDINATOR-C Salvatore Dickinson Attending Provider Dr. Gloria Hazel Primary Care Provider Dr. Gloria Hazel Referring Provider Tracy PREVENTION COORDINATOR, PREVENTION COORDINATOR-C Nelda Varela Attending Provider Dr. Vlad Alfaro Attending Provider Dr. Frank Siu Attending Provider Gloria Hazel Primary Care Provider Dr. Gloria Hazel Primary Care Provider Dr. Gloria Hazel Referring Provider Dr. Catalino Short Attending Provider Dr. Samm Womack Emergency Provider Dr. Mi Gregory Admit Provider Dr. Mi Gregory Other Provider Dr. Melva Wheeler Attending Provider Dr. Melva Wheeler Other Provider Dr. Gloria Hazel Primary Care Provider Dr. Gloria Hazel Primary Care Provider Dr. Gloria Hazel Referring Provider Dr. Vlad Alfaro Attending Provider Dr. Catalino Short Attending Provider Dr. Jasbir Perez Attending Provider Dr. Gloria Hazel Primary Care Provider Dr. Gloria Hazel Referring Provider Dr. Jasbir Perez Attending Provider Dr. Halle Dale Emergency Provider Dr. Melva Wheeler Admit Provider Dr. Melva Wheeler Attending Provider Dr. Melva Wheeler Other Provider Dr. Gloria Hazel Primary Care Provider Dr. Gloria Hazel Referring Provider Dr. Jasbir Perez Attending Provider Dr. Halle Dale Emergency Provider Dr. Melva Wheeler Admit Provider Dr. Melva Wheeler Attending Provider Dr. Melva Wheeler Other Provider Dr. Catalino Short Attending Provider Dr. Gloria Hazel S Primary Care Provider Dr. Gloria Hazel Referring Provider Dr. Catalino Short Attending Provider Dr. Gloria Hazel S Primary Care Provider Dr. Gloria Hazel S Referring Provider Dr. Gloria Hazel S Primary Care Provider Dr. Halle Dale Emergency Provider Dr. Melva Wheeler Admit Provider Dr. Melva Wheeler Attending Provider Dr. Melva Wheeler Other Provider Dr. Gloria Hazel Referring Provider Dr. Catalino Short Attending Provider Gloria Hazel Primary Care Provider Ilir PERALES, Dr. Gloria Latif Primary Care Provider Erinn PERALES, Dr. Anne Attending Provider Erinn PERALES, Dr. Anne Referring Provider Ilir PERALES, Dr. Gloria Latif Primary Care Provider Erinn PERALES, Dr. Anne Attending Provider Erinn PERALES, Dr. Anne Referring Provider Ilir PERALES, Dr. Gloria Latif Referring Provider King DIAZ, Dr. Martell Attending Provider Itzel PERALES, Rui Attending Provider Barrera PERALES, Dr. Moseley Attending Provider Barrera PERALES, Dr. Moseley Referring Provider Ilir PERALES, Dr. Gloria Latif Primary Care Provider Erinn PERALES, Dr. Anne Attending Provider Erinn PERALES, Dr. Anne Referring Provider Nargis PERALES, Dr. Parish Attending Provider Yobani PERALES, Dr. Patel Primary Care Provider Rui Robbins MD Referring Provider Ilir PERALES, Dr. Gloria Latif Primary Care Provider Erinn PERALES, Dr. Anne Attending Provider Erinn PERALES, Dr. Anne Referring Provider Jackelin Cabral Attending Provider Reno CHRISTINE, Dr. Knapp Referring Provider Ilir PERALES, Dr. Gloria Latif Primary Care Provider Erinn PERALES, Dr. Anne Attending Provider Erinn PERALES, Dr. Anne Referring Provider Nargis PERALES, Dr. Parish Referring Provider Yobani PERALES, Dr. Patel Referring Provider Ilir PERALES, Dr. Gloria Latif Primary Care Provider Erinn PERALES, Dr. Anne Attending Provider Erinn PERALES, Dr. Anne Referring Provider Ilir PERALES, Dr. Gloria Latif Referring Provider King DIAZ, Dr. Martell Attending Provider Itzel PERAELS, Rui Attending Provider Barrera PERALES, Dr. Moseley Attending Provider Barrera PERALES, Dr. oMseley Referring Provider Nargis PERALES, Dr. Parish Attending Provider Yobani PERALES, Dr. Patel Primary Care Provider Itzel PERALES, Rui Referring Provider Jackelin Cabral Attending Provider Reno CHRISTINE, Dr. Knapp Referring Provider Nargis PERALES, Dr. Parish Referring Provider Yobani PERALES, Dr. Patel Referring Provider Deja PERALES, Dr. Bae Attending Provider Deja PERALES, Dr. Bae Referring Provider Ilir PERALES, Dr. Gloria Latif Primary Care Provider Erinn PERALES, Dr. Anne Attending Provider Erinn PERALES, Dr. Anne Referring Provider Terry PERALES, Dr. Mayfield Emergency Provider Unavailab tayler Hazel MD, Dr. Gloria Latif Primary Care Provider Ilir PERALES, Dr. Gloria Latif Referring Provider Ilir PERALES, Dr. Gloria Latif Primary Care Provider Erinn PERALES, Dr. Anne Attending Provider Erinn PERALES, Dr. Anne Referring Provider Terry PERALES, Dr. Mayfield Attending Provider Unavailab tayler Hilton MD, Dr. Patel Attending Provider Yobani PERALES, Jorge Page Primary Care Provider Jackelin Cabral Attending Physician Yobani PERALES, Dr. Patel Primary Care Physician Itzel PERALES, Rui Attending Physician Itzel PERALES, Rui Referring Provider Nargis PERALES, Dr. Parish Attending Physician Erinn PERALES, Dr. Anne Attending Physician Erinn PERALES, Dr. Anne Referring Provider Ilir PERALES, Dr. Gloria Latif Primary Care Physician Deja PERALES, Dr. Bae Attending Physician Terry PERALES, Dr. Mayfield Attending Physician Unavaila ble Terry PERALES, Dr. Mayfield Emergency Department Physici an Unavailable Yobani PERALES, Dr. Patel Attending Physician MEGHANA FLOR Referring Unavailable JOLLIFF, GLORIA KODAK Primary Care Unavailable MEGHANA FLOR Referring Unavailable HILTONJORGE Primary Care Unavailable Rui Robbins Attending Unavailable Rui Robbins Referring Unavailable Hilton, Jorge Primary Care Unavailable Hilton, Jorge Primary Care Unavailable NargisJem calvin Attending Unavailable NargisJem Referring Unavailable Jorge Hilton Primary Care Unavailable Vellanki, Dayana Referring Unavailable Vellanki, Dayana Attending Unavailable Vellanki, Dayana Attending Unavailable Vellanki, Dayana Referring Unavailable Jolliff, Gloria S Primary Care Unavailable Vellanki, Dayana Attending Unavailable Vellanki, Dayana Referring Unavailable Jolliff, Gloria S Primary Care Unavailable Vellanki, Dayana Attending Unavailable Vellanki, Dayana Referring Unavailable Jolliff, Gloria S Primary Care Unavailable Nargis, Jem Attending Unavailable Nargis, Jem Referring Unavailable Hilton, Jorge Primary Care Unavailable MollRui ponce Referring Unavailable Rui Robbins Attending Unavailable Hilton, Jorge Primary Care Unavailable HiltonJorge Attending Unavailable Hilton, Jorge Primary Care Unavailable Hilton, Jorge Primary Care Unavailable Tran Stewart Attending Unavailable Vellanki, Dayana Referring Unavailable Vellanki, Dayana Attending Unavailable Hilton, Jorge Primary Care Unavailable Hilton, Jorge Primary Care Unavailable NargisJem Attending Unavailable Jolliff, Gloria S Primary Care Unavailable Jolliff, Gloria S Attending Unavailable Jolliff, Gloria S Referring Unavailable Ra Bojorquez Referring Unavailable Jackelin Bryan Attending Unavailable Hilton, Jorge Primary Care Unavailable MollisonRui Attending Unavailable Jolliff, Gloria S Referring Unavailable Jolliff, Gloria S Primary Care Unavailable Jolliff, Gloria S Referring Unavailable Jolliff, Gloria S Primary Care Unavailable Jasbir Perez Attending Unavailable Vellanki, Dayana Referring Unavailable Vellanki, Dayana Attending Unavailable Jolliff, Gloria S Primary Care Unavailable Vellanki, Dayana Attending Unavailable Vellanki, Dayana Referring Unavailable Jolliff, Gloria S Primary Care Unavailable Vellanki, Dayana Referring Unavailable Vellanki, Dayana Attending Unavailable Jolliff, Gloria S Primary Care Unavailable Vellanki, Dayana Referring Unavailable Vellanki, Dayana Attending Unavailable Jolliff, Gloria S Primary Care Unavailable Vellanki, Dayana Referring Unavailable Vellanki, Dayana Attending Unavailable Hilton, Jorge Primary Care Unavailable BasaliLorelei Attending Unavailable Jolliff, Gloria S Primary Care Unavailable Basali, Ayman Referring Unavailable Vellanki, Dayana Attending Unavailable Vellanki, Dayana Referring Unavailable Hilton, Jorge Primary Care Unavailable NargisJem calvin Attending Unavailable Jolliff, Gloria S Referring Unavailable Hilton, Jorge Primary Care Unavailable Nato Smith Attending Unavailable Hilton, Jorge Primary Care Unavailable Catalino Short Attending Unavailable Hilton, Jorge Referring Unavailable Roof Salvatore SMALLS Attending Unavailable Hilton, Jorge Referring Unavailable Hilton, Jorge Primary Care Unavailable Jolliff, Gloria S Referring Unavailable Jasbir Perez Attending Unavailable Hilton, Jorge Primary Care Unavailable Rui Robbins Attending Unavailable Hilton, Jorge Primary Care Unavailable Hilton, Jorge Referring Unavailable Vellanki, Dayana Referring Unavailable Vellanki, Dayana Attending Unavailable Hilton, Jorge Primary Care Unavailable Rui Robbins Attending Unavailable Rui Robbins Referring Unavailable Hilton, Jorge Primary Care Unavailable PraCatalino dickinson Attending Unavailable PrahCatalino Referring Unavailable Jolliff, Glroia S Primary Care Unavailable Yobani PERALES, Dr. Patel Primary Care Physician Rui Robbins MD Attending Physician Nargis PERALES, Dr. Parish Attending Physician Nargis PERALES, Dr. Parish Referring Provider Rui Robbins MD Referring Provider Ilir PERALES, Dr. Gloria Latif Referring Provider King DIAZ, Dr. Martell Attending Physician [facility] PREVENTION COORDINATOR-C, Salvatore Attending Physician Yobani PERALES, Dr. Patel Primary Care Physician Yobani PERALES, Dr. Patel Referring Provider Itzel PERALES, Rui Attending Physician KANAA'N, FELIBERTO Attending Unavailable HILTON, JORGE R Primary Care Unavailable KANAA'N, FELIBERTO Admitting Unavailable KANAA'N, FELIBERTO Attending Unavailable KANAA'N, FELIBERTO Referring Unavailable HILTON, JORGE R Primary Care Unavailable KANAA'N, FELIBERTO Admitting Unavailable KANAA'N, FELIBERTO Attending Unavailable KANAA'N, FELIBERTO Referring Unavailable HILTON, JORGE R Primary Care Unavailable CHACHO, MEGHANA Fraser Attending Unavailable HILTON, JORGE R Primary Care Unavailable CHACHO, MEGHANA A Referring Unavailable HILTON, JORGE R Primary Care Unavailable CHACHO, MEGHANA A Referring Unavailable HILTON, JORGE R Primary Care Unavailable CATALINO TRIPP Attending Unavailable YOBANI, JORGE Page Primary Care Unavailable Ilir PERALES, Dr. Gloria Latif Primary Care Physician Deja PERALES, Dr. Bae Attending Physician Dr. Catalino Short MD Referring Provider Yobani PERALES, Dr. Patel Primary Care Physician Yobani PERALES, Dr. Patel Referring Provider Nargis PERALES, Dr. Parish Attending Physician Nargis PERALES, Dr. Parish Referring Provider Terry PERALES, Dr. Mayfield Attending Physician Unavaila ble Terry PREALES, Dr. Mayfield Emergency Department Physici an Unavailable Erinn PERALES, Dr. Anne Attending Physician Dr. Dayana Plasencia MD Referring Provider Dr. Jorge Hilton MD Attending Physician Rui Robbins MD Attending Physician [phone] Rui Robbins MD Referring Provider Dr. Gloria Hazel MD Referring Provider King DIAZ, Dr. Martell Attending Physician [phone] [facility] Salvatore SALAZAR Attending Physician [phone] Medications Current Medications Medication Drug Class(es) Dates Sig (Normalized) Sig (Original) acetaminophen 500 mg oral tablet (20 sources) Start: 01-06-2023 End: 01-24-2023 Start: 01-06-2023 End: 01-24-2023 take 1000 mg by mouth every eight hours Acetaminophen Active 1000 MG PO EVERY 8 HOURS 0 January 23, 2023 11:00pm Start: 08-31-2020 End: 09-25-2020 Start: 08-31-2020 End: 09-25-2020 take 2 tablets by mouth every six hours as needed for pain Acetaminophen 500 MG tablet Discontinued 1000 mg PO EVERY 6 HOURS NEEDED as needed for Pain Score 1-5 0 August 31, 2020 12:00am September 25, 2020 9:42am Start: 08-31-2020 End: 09-25-2020 take 1000 mg by mouth every six hours as needed Acetaminophen Discontinued 1000 MG PO EVERY 6 HOURS NEEDED August 31, 2020 12:00am September 25, 2020 9:42am Start: 08-17-2020 End: 08-31-2020 Start: 08-17-2020 End: 08-31-2020 Acetaminophen Discontinued 6 50 MG PO August 17, 2020 12:00am August 31, 2020 7:44pm Comment on above: Take 2 tablets by mo uth every 4 hours as needed. acetaminophen 325 mg / HYDRO codone bitartrate 7.5 mg oral tablet (20 sources) Opioid Agonist Start: 10-23-2024 Start: 10-23-2024 Hydrocodone-Ac etaminophen 7.5-325 mg tablet Active 1 {tbl} PO TWICE A DAY 0 October 23, 2024 12:00am pain Start: 12-14-2023 End: 11-05-2024 Start: 12-14-2023 End: 11-05-2024 Hydrocodone-Acetaminophen 5- 325 mg tablet Discontinued 1 {tbl} PO THREE TIMES A DAY 0 December 14, 2023 12:00am November 05, 2024 1:32pm Start: 11-25-2022 End: 01-06-2023 Start: 11-25-2022 End: 01-06-2023 Hydrocodone-Acetaminophen 5- 325 mg tablet Discontinued 1 {tbl} PO EVERY 6 HOURS 0 November 25, 2022 12:00am January 06, 2023 2:51pm Start: 11-25-2022 End: 01-06-2023 take 1 tablet by mouth every six hours Hydrocodone-Acetaminophen Discontinued 1 TABLET PO EVERY 6 HOURS November 25, 2022 12:00am January 06, 2023 2:51pm Start: 11-25-2022 End: 01-06-2023 ascorbic acid 1000 mg oral c apsule (20 sources) Vitamin C Start: 10-23-2024 Start: 10-31-2021 End: 09-12-2022 Start: 10-09-2014 End: 01-30-2019 Start: 10-09-2014 End: 01-30-2019 take 1 g by mouth once daily Ascorbic Acid (Vitamin C) Discontinued 1 GM PO DAILY January 29, 2019 3:05pm January 30, 2019 10:02am bacitracin 0.5 unt/mg topical ointment (10 sources) Start: 12-23-2022 bacitracin 500 unit/gram ointment APPLY TO THE AFFECTED AREA(S) DAILY 12/23/2022 Active Comment on above: APPLY TO THE AFFECTE D AREA(S) DAILY Blood pressue cuff (19 sources) Start: 09-28-2020 Blood pressue cuff Active 0 .Route .MEDSUPPLY September 28, 2020 1:58pm As directed Start: 09-28-2020 Blood pressue cuff Active 0 .Route .MEDSUPPLY September 27, 2020 11:00pm As directed Start: 09-28-2020 Blood pressue cuff Active 0 .Route .MEDSUPPLY September 28, 2020 12:00am As directed Calcium (20 sources) Phosphate Binder, Calcium Start: 06-05-2022 take 1000 mg by mouth once daily Calcium Active 1000 MG PO DAILY October 31, 2021 8:51am Start: 10-31-2021 End: 09-12-2022 take 2 tablets by mouth once daily Calcium 500 mg Tablet Discontinued 1000 mg PO DAILY October 31, 2021 12:00am September 12, 2022 4:01pm Start: 10-31-2021 End: 09-12-2022 take 1000 mg by mouth once daily Calcium Discontinued 1000 MG PO DAILY October 30, 2021 11:00pm September 12, 2022 3:01pm Start: 10-31-2021 End: 09-12-2022 take 1000 mg by mouth once daily Calcium Discontinued 1000 MG PO DAILY October 31, 2021 12:00am September 12, 2022 4:01pm Start: 10-31-2021 take 1000 mg by mout h once daily Calcium Active 1000 MG PO DAILY October 30, 2021 11:00pm Start: 10-31-2021 take 1000 mg by mout h once daily Calcium Active 1000 MG PO DAILY October 31, 2021 12:00am 1 ml denosumab 60 mg/ml pref illed syringe (20 sources) RANK Ligand Inhibitor Start: 03-10-2023 finasteride 1 mg oral tablet (20 sources) 5-alpha Reductase Inhibitor Start: 12-30-2020 Start: 12-30-2020 take 5 mg by mouth once daily Finasteride Active 5 MG PO DAILY December 30, 2020 12:00am Start: 12-30-2020 take 1 tablet by shaista th once daily finasteride (PROSCAR) 5 mg tablet Take 5 mg by mouth once daily. Active Comment on above: Take 5 mg by mouth o nce daily. furosemide 40 mg oral tablet (20 sources) Loop Diuretic Start: 03-19-2025 Start: 03-19-2025 Start: 03-19-2025 Start: 03-19-2025 Start: 10-23-2024 End: 03-19-2025 Start: 06-26-2024 End: 10-23-2024 Start: 10-12-2022 End: 10-21-2022 Furosemide (Lasix) 40 mg tab let Discontinued 60 mg PO TWICE A DAY October 12, 2022 4:20pm October 21, 2022 1:05pm Start: 10-12-2022 End: 10-12-2022 take 1 tablet by mouth twice daily Furosemide (Lasix) 40 mg tablet Discontinued 40 mg PO TWICE A DAY 60 0 October 12, 2022 3:34pm October 12, 2022 4:21pm Start: 09-20-2022 End: 06-26-2024 Start: 09-20-2022 End: 01-24-2023 take 2 tablets by mouth twice daily Furosemide (Lasix) 40 mg tablet Discontinued 80 mg PO TWICE A DAY 270 3 October 21, 2022 1:05pm November 14, 2022 10:58am Start: 09-20-2022 End: 01-24-2023 take 2 tablets by mouth once daily Furosemide (Lasix) 40 mg tablet Discontinued 80 mg PO DAILY 180 90 November 14, 2022 10:55am January 24, 2023 8:47pm Start: 01-30-2019 End: 06-01-2020 gabapentin 300 mg oral capsu le (20 sources) Anti-epileptic Agent Start: 10-20-2022 Start: 05-31-2022 take 300 mg by mouth once courtney y Gabapentin Active 300 MG PO DAILY May 31, 2022 1:00am Start: 05-31-2022 take 100 mg by mouth three times daily Gabapentin Active 100 MG PO THREE TIMES A DAY May 31, 2022 1:00am Start: 01-29-2019 End: 01-30-2019 Start: 01-29-2019 End: 01-30-2019 take 1 capsule by mouth once daily Gabapentin 300 mg capsule Discontinued 300 mg PO DAILY January 29, 2019 12:00am January 30, 2019 11:00am Start: 07-28-2017 End: 03-30-2018 4 ml golimumab 12.5 mg/ml injection (20 sources) Tumor Necrosis Factor Santiago Start: 05-31-2022 Start: 03-24-2018 End: 01-30-2019 Start: 03-24-2018 End: 01-30-2019 Golimumab 50 MG/4 ML solutio n Discontinued IV EVERY MONTH March 24, 2018 12:00am January 30, 2019 11:02am RA EVERY 8 WEEKS Start: 03-24-2018 End: 01-30-2019 Golimumab Discontinued IV EV MAREN MONTH March 24, 2018 12:00am January 30, 2019 11:02am EVERY 8 WEEKS hydroxychloroquine sulfate 200 mg oral tablet (12 sources) Antimalarial, Antirheumatic Agent Start: 12-30-2020 take 1 tablet by mouth twice daily Hydroxychloroquine (Plaquenil) 200 mg tablet Active 200 MG PO TWICE A DAY December 30, 2020 9:56am End: 02-12-2025 hydrOXYchloroQUINE (PLAQUENI L) 200 mg tablet Take by mouth once daily. 02/12/2025 Discontinued (Course of therapy completed) Comment on above: Take by mouth once d aily. Mecobalamin (Vitamin B12) (13 sources) Start: 10-23-2024 Start: 10-23-2024 take 1 tablet by shaista once daily Mecobalamin (Vitamin B12) 2,500 mcg tablet,chewable Active 2500 ug PO DAILY October 23, 2024 12:00am Start: 10-23-2024 Mecobalamin (V itamin B12) 2,500 mcg tablet,chewable Active ug PO DAILY October 23, 2024 12:00am methotrexate 2.5 mg oral tab let (20 sources) Folate Analog Metabolic Inhibitor Start: 06-01-2023 Start: 06-01-2023 take 20 mg by mouth every week Methotrexate Sodium Active 20 MG PO EVERY WEEK June 01, 2023 1:00am Start: 10-31-2021 End: 09-12-2022 Start: 10-31-2021 End: 09-12-2022 take 20 mg by mouth every week Methotrexate Sodium Dis continued 20 MG PO EVERY WEEK October 31, 2021 12:00am September 12, 2022 4:01pm monday Start: 02-29-2016 methotrexate 2 .5 mg tablet 02/29/2016 Active Start: 10-09-2014 End: 12-30-2020 Start: 10-09-2014 End: 12-30-2020 Methotrexate Sodium Disconti nued 20 MG PO JONES@0600 January 29, 2019 3:08pm December 30, 2020 9:03am mirtazapine 15 mg oral tablet (20 sources) Start: 10-23-2024 take 7.5 mg by mouth at bedtime Mirtazapine 15 mg tablet Active 7.5 mg PO AT BEDTIME October 23, 2024 1:51pm Start: 06-22-2023 End: 10-23-2024 Start: 09-28-2020 End: 06-01-2023 Start: 09-28-2020 End: 01-10-2022 take 7.5 mg by mouth at bedtime Mirtazapine 15 mg tabl et Discontinued 7.5 mg PO AT BEDTIME September 28, 2020 12:00am January 10, 2022 1:42pm Start: 09-28-2020 End: 01-10-2022 take 7.5 mg by mouth at bedtime Mirtazapine Discontinu ed 7.5 MG PO AT BEDTIME September 28, 2020 12:00am January 10, 2022 1:42pm Start: 08-12-2020 End: 09-28-2020 Start: 08-12-2020 End: 09-28-2020 take 2 tablets by mouth at bedtime Mirtazapine 7.5 MG tablet Discontinued 15 mg PO AT BEDTIME August 12, 2020 12:00am September 28, 2020 1:31pm DEPRESSION Start: 08-12-2020 End: 09-28-2020 take 15 mg by mouth at bedtime Mirtazapine Discontinue d 15 MG PO AT BEDTIME August 12, 2020 12:00am September 28, 2020 1:31pm Start: 08-12-2020 End: 09-28-2020 Start: 06-01-2020 End: 07-18-2020 Start: 06-01-2020 End: 07-18-2020 take 7.5 mg by mouth at bedtime Mirtazapine 15 MG tabl et Discontinued 7.5 mg PO AT BEDTIME June 01, 2020 1:00am July 18, 2020 3:00pm Start: 06-01-2020 End: 07-18-2020 take 7.5 mg by mouth at bedtime Mirtazapine Discontinu ed 7.5 MG PO AT BEDTIME June 01, 2020 1:00am July 18, 2020 3:00pm Comment on above: Take 15 mg by mouth daily at bedtime. Miscellaneous Medical Supply (19 sources) Start: 12-30-2020 Miscellaneous Medical Supply Active 1 EACH [facility] As Directed December 30, 2020 10:10am handicap xochitl, for life. Start: 12-30-2020 Miscellaneous Medical Supply Active 1 EACH MC As Directed December 29, 2020 11:00pm [facility] leung, for life. Start: 12-30-2020 Miscellaneous Medical Supply Active 1 EACH As Directed December 30, 2020 [facility] Multivitamin (Daily Multi-Vitamin) tablet (20 sources) Start: 01-01-2021 take 1 tablet by mouth once daily Multivitamin (Daily Multi-Vitamin) tablet Active 1 TABLET PO DAILY January 01, 2021 3:54pm Start: 01-01-2021 End: 06-22-2023 Multivitamin (Daily Multi-Vi tamin) tablet Discontinued 1 {tbl} PO DAILY January 01, 2021 12:00am June 22, 2023 10:12am Check with primary doctor Start: 01-01-2021 End: 06-22-2023 Multivitamin (Daily Multi-Vi tamin) tablet Discontinued 1 {tbl} PO DAILY January 01, 2021 12:00am June 22, 2023 10:12am Start: 01-01-2021 End: 06-22-2023 take 1 tablet by mouth once daily Multivitamin (Daily Multi-Vitamin) tablet Discontinued 1 TABLET PO DAILY January 01, 2021 12:00am June 22, 2023 10:12am Start: 01-01-2021 End: 06-22-2023 take 1 tablet by mouth once daily Multivitamin (Daily Multi-Vitamin) tablet Discontinued 1 TABLET PO DAILY December 31, 2020 11:00pm June 22, 2023 9:12am Start: 01-01-2021 take 1 tablet by shaista th once daily Multivitamin (Daily Multi-Vitamin) tablet Active 1 TABLET PO DAILY December 31, 2020 11:00pm Start: 01-01-2021 take 1 tablet by shaista th once daily Multivitamin (Daily Multi-Vitamin) tablet Active 1 TABLET PO DAILY January 01, 2021 12:00am 24 hr oxybutynin chloride 10 mg extended release oral tablet (13 sources) Cholinergic Muscarinic Antagonist Start: 10-23-2024 polysaccharide iron complex 150 mg oral capsule (20 sources) Start: 12-12-2024 End: 12-13-2024 Start: 09-21-2022 End: 06-22-2023 Start: 09-21-2022 End: 06-22-2023 Polysaccharide Iron Complex (Ferrex 150) 150 mg iron capsule Discontinued 150 mg PO TWICE A DAY 90 90 0 October 21, 2022 1:05pm December 19, 2022 12:00am December 14, 2022 3:27pm sulfaSALAzine 500 mg delayed release oral tablet (20 sources) Aminosalicylate Start: 06-01-2023 Start: 06-01-2023 take 0.5 g by mouth every twelve hours Sulfasalazine Active 0.5 GM PO Q12H June 01, 2023 1:00am Start: 08-17-2020 take 1 tablet by shaista th three times daily sulfaSALAzine EC (AZULFIDINE EN) 500 mg EC tablet Take 1 tablet by mouth three times daily. 08/17/2020 Active Start: 08-17-2020 End: 09-25-2020 Comment on above: Take 1 tablet by shaista three times daily. tamsulosin hydrochloride 0.4 mg oral capsule (20 sources) alpha-Adrenergic Santiago Start: End: Comment on above: [facility] traZODone hydrochloride 100 mg oral tablet (20 sources) Serotonin Reuptake Inhibitor Start: take 1 tablet by mouth at bedtime Trazodone 100 mg tablet Active 100 mg PO AT BEDTIME November 14, 2022 10:21am Check with primary doctor Start: 05-09-2021 End: 11-14-2022 Trazodone 100 MG tablet Disc ontinued 150 mg PO AT BEDTIME May 09, 2021 7:55pm November 14, 2022 10:22am Check with primary doctor Start: 05-09-2021 End: 11-14-2022 take 150 mg by mouth at bedtime Trazodone Discontinued 150 MG PO AT BEDTIME May 09, 2021 7:55pm November 14, 2022 10:22am Start: 08-31-2020 End: 11-14-2022 Start: 08-31-2020 End: 05-09-2021 take 1 tablet by mouth at bedtime Trazodone 100 MG tablet Discontinued 100 mg PO AT BEDTIME 30 0 August 31, 2020 12:00am May 09, 2021 7:55pm Start: 08-31-2020 End: 11-14-2022 Start: 08-17-2020 End: 08-31-2020 Comment on above: Take 1 tablet by shaista th daily at bedtime. Turmeric Root Extract 500 mg capsule (8 sources) Start: 10-23-2024 take 1 capsule by mouth once daily Turmeric Root Extract 500 mg capsule Active 500 mg PO daily October 23, 2024 12:00am (20 sources) Start: 10-23-2024 Start: 01-24-2023 End: 06-01-2023 Start: 01-24-2023 Start: 01-06-2023 End: 01-24-2023 Start: 01-06-2023 Start: 01-10-2022 End: 03-10-2023 Start: 01-10-2022 Start: 10-31-2021 End: 09-12-2022 Start: 10-31-2021 End: 09-12-2022 Start: 10-31-2021 End: 01-10-2022 Start: 01-01-2021 End: 06-22-2023 Start: 01-01-2021 Start: 08-17-2020 End: 08-31-2020 Start: 08-10-2020 End: 08-10-2020 Start: 11-11-2019 End: 04-06-2020 Start: 05-08-2018 End: 11-11-2019 Completed/Discontinued Medications Medication Drug Class(es) Dates Sig (Normalized) Sig (Original) acetaminophen 325 mg / oxyCODONE hydrochloride 5 mg oral tablet (20 sources) Opioid Agonist Start: 08-17-2020 End: 08-31-2020 Start: 08-17-2020 End: 08-31-2020 Oxycodone-Acetaminophen 1 TA BLET tablet Discontinued 1 {tbl} PO EVERY 6 HOURS NEEDED as needed for Not Specified August 17, 2020 12:00am August 31, 2020 7:46pm Start: 08-17-2020 End: 08-31-2020 take 1 tablet by mouth every six hours as needed Oxycodone-Acetaminophen Discontinued 1 TABLET PO EVERY 6 HOURS NEEDED August 17, 2020 12:00am August 31, 2020 7:46pm Start: 08-17-2020 End: 08-31-2020 Start: 03-18-2019 End: 06-01-2020 Oxycodone-Acetaminophen 5-32 5 mg tablet Discontinued 1 {tbl} PO THREE TIMES A DAY as needed for Pain Score 1-5/10 November 11, 2019 2:18pm June 01, 2020 7:36pm Start: 03-18-2019 End: 06-01-2020 take 1 tablet by mouth three times daily Oxycodone-Acetaminophen Discontinued 1 TABLET PO THREE TIMES A DAY November 11, 2019 1:18pm June 01, 2020 6:36pm Start: 05-15-2018 End: 05-19-2018 Oxycodone-Acetaminophen 1 TA BLET tablet Discontinued 1 - 2 {tbl} PO EVERY 4 HOURS NEEDED as needed for Pain May 15, 2018 1:00am May 18, 2018 1:00am May 19, 2018 1:12am History of umbilical hernia repair Other specified postprocedural states Personal history of other diseases of the digestive system Start: 05-15-2018 End: 05-19-2018 take 1 tablet by mouth every four hours as needed Oxycodone-Acetaminophen Discontinued 1 - 2 TABLET PO EVERY 4 HOURS NEEDED 15 09May 15, 2018 1:00am May 19, 2018 1:12am Start: 03-24-2018 End: 06-01-2020 Start: 03-24-2018 End: 03-18-2019 Oxycodone-Acetaminophen 5-32 5 mg tablet Discontinued 1 {tbl} PO DAILY as needed for Pain January 30, 2019 10:58am March 18, 2019 1:50pm Start: 03-24-2018 End: 03-18-2019 take 1 tablet by mouth once daily Oxycodone-Acetaminophen Discontinued 1 TABLET PO DAILY January 30, 2019 9:58am March 18, 2019 12:50pm Start: 03-24-2018 End: 06-01-2020 amiodarone hydrochloride 200 mg oral tablet (20 sources) Antiarrhythmic Start: 08-10-2020 End: 12-17-2024 Start: 08-10-2020 End: 12-17-2024 Comment on above: Take 200 mg by mouth twice daily. amoxicillin 875 mg / clavulanate 125 mg oral tablet (20 sources) Penicillin-class Antibacterial Start: 07-18-2020 End: 07-18-2020 apixaban 5 mg oral tablet (20 sources) Factor Xa Inhibitor Start: 08-17-2020 End: 02-12-2025 Start: 05-13-2020 End: 09-29-2020 Start: 05-13-2020 End: 09-29-2020 take 2 tablets by mouth twice daily Apixaban 2.5 MG tablet Discontinued 5 mg PO TWICE A DAY August 17, 2020 5:01pm September 28, 2020 1:32pm Blood Thinner Start: 05-13-2020 End: 09-29-2020 take 5 mg by mouth twice daily Apixaban Discontinued 5 MG PO TWICE A DAY August 17, 2020 4:01pm September 28, 2020 12:32pm Comment on above: Take 1 tablet by shaista twice daily. Twxhb-Sfpa-Dwqct-Colla g-Mv-Min (Tian (With Collagen)) 7-7-1.5 gram Powder In Packet (20 sources) Start: 01-24-2023 End: 06-01-2023 Bkkvc-Vjhh-Syrcw-Collag-Mv -Min (Tian (With Collagen)) 7-7-1.5 gram Powder In Packet Discontinued 1 NMA PO TWICE DAILY WITH MEALS 60 30 0 January 24, 2023 12:00am June 01, 2023 11:59am Start: 01-24-2023 End: 06-01-2023 Iibcd-Eepv-Cwxqv-Collag-Mv-M in (Tian (With Collagen)) 7-7-1.5 gram Powder In Packet Discontinued 1 NMA PO TWICE DAILY WITH MEALS 60 January 24, 2023 12:00am June 01, 2023 11:59am Start: 01-24-2023 End: 06-01-2023 Wczoa-Riox-Ydgyy-Collag-Mv-M in (Tian (With Collagen)) 7-7-1.5 gram Powder In Packet Discontinued 1 PACKET PO TWICE DAILY WITH MEALS 60 January 24, 2023 12:00am June 01, 2023 11:59am Start: 01-24-2023 End: 06-01-2023 Ovfyj-Nicc-Epjrg-Collag-Mv-M in (Tian (With Collagen)) 7-7-1.5 gram Powder In Packet Discontinued 1 PACKET PO TWICE DAILY WITH MEALS 60 January 23, 2023 11:00pm June 01, 2023 10:59am Start: 01-24-2023 Lxiry-Crzp-Qpr mj-Jwxftx-Dt-Min (Tian (With Collagen)) 7-7-1.5 gram Powder In Packet Active 1 PACKET PO TWICE DAILY WITH MEALS 60 30 January 23, 2023 11:00pm Start: 01-06-2023 End: 01-24-2023 Izugh-Lcsh-Rjbvb-Collag-Mv-M in (Tian (With Collagen)) 7-7-1.5 gram Powder In Packet Discontinued 1 NMA PO TWICE DAILY WITH MEALS 0 0 January 06, 2023 12:00am January 24, 2023 8:46pm supplement Start: 01-06-2023 End: 01-24-2023 Csilj-Krdt-Jeahe-Collag-Mv-M in (Tian (With Collagen)) 7-7-1.5 gram Powder In Packet Discontinued 1 NMA PO TWICE DAILY WITH MEALS 0 January 06, 2023 12:00am January 24, 2023 8:46pm Start: 01-06-2023 End: 01-24-2023 Juirq-Ypvo-Kqkti-Collag-Mv-M in (Tian (With Collagen)) 7-7-1.5 gram Powder In Packet Discontinued 1 PACKET PO TWICE DAILY WITH MEALS 0 January 06, 2023 12:00am January 24, 2023 8:46pm Start: 01-06-2023 End: 01-24-2023 Sgyam-Ljfh-Ypjan-Collag-Mv-M in (Tian (With Collagen)) 7-7-1.5 gram Powder In Packet Discontinued 1 PACKET PO TWICE DAILY WITH MEALS 0 January 05, 2023 11:00pm January 24, 2023 7:46pm aspirin 81 mg delayed release oral tablet (20 sources) Platelet Aggregation Inhibitor, Nonsteroidal Anti-inflammatory Drug Start: 01-10-2022 End: 01-24-2023 Start: 07-13-2020 End: 09-29-2020 Start: 04-20-2020 End: 05-13-2020 Start: 08-19-2016 End: 04-06-2020 Start: 10-09-2014 End: 10-18-2014 Start: 10-09-2014 End: 10-18-2014 take 2 tablets by mouth once daily Aspirin 81 MG Tab.Chew Discontinued 162 mg PO DAILY@799October 09, 2014 12:00am October 18, 2014 7:54am Start: 10-09-2014 End: 10-18-2014 take 162 mg by mouth once daily Aspirin Discontinued 1 62 MG PO DAILY@799October 09, 2014 12:00am October 18, 2014 7:54am Comment on above: Take 81 mg by mouth once daily. atorvastatin 40 mg oral tabl et (20 sources) HMG-CoA Reductase Inhibitor Start: 08-10-2020 End: 12-09-2024 Comment on above: Take 1 tablet by shaista th daily at bedtime. baclofen 10 mg oral tablet (20 sources) gamma-Aminobutyric Acid-ergic Agonist Start: 01-24-2023 End: 06-22-2023 168 hr buprenorphine 0.01 mg /hr transdermal system (20 sources) Partial Opioid Agonist Start: 09-20-2022 End: 01-06-2023 calcium carbonate 1500 mg / cholecalciferol 800 unt oral tablet (20 sources) Vitamin D Start: 10-09-2014 End: 07-18-2020 Start: 10-09-2014 End: 07-18-2020 Calcium Carbonate-Vitamin D3 1 TAB tablet Discontinued 1 {tbl} PO DAILY@799October 09, 2014 12:00am July 18, 2020 10:31am SUPPLEMENT Start: 10-09-2014 End: 07-18-2020 take 1 tablet by mouth once daily Calcium Carbonate-Vitamin D3 Discontinued 1 TABLET PO DAILY@799October 09, 2014 12:00am July 18, 2020 10:31am Start: 10-09-2014 End: 07-18-2020 cephalexin 500 mg oral capsu le (20 sources) Cephalosporin Antibacterial Start: 01-05-2023 End: 01-24-2023 Start: 08-10-2020 End: 08-10-2020 Start: 08-10-2020 End: 08-10-2020 Cephalexin 500 MG capsule Di scontinued 500 mg PO EVERY 8 HOURS 0 August 10, 2020 12:00am August 10, 2020 2:40pm through 08/12, then stop. clopidogrel 75 mg oral table t (20 sources) [id number] Platelet Inhibitor Start: 08-10-2020 End: 02-10-2025 Comment on above: Take 1 tablet by shaista once daily. cyclobenzaprine hydrochlorid e 10 mg oral tablet (20 sources) Muscle Relaxant Start: 02-07-2022 End: 09-25-2022 Start: 08-17-2020 End: 02-12-2025 take 1 tablet by mouth every eight hours as needed cyclobenzaprine (FLEXERIL) 5 mg tablet Take 1 tablet by mouth three times daily as needed for Muscle Spasm. 08/17/2020 02/12/2025 Discontinued (Course of therapy completed) Start: 08-17-2020 End: 12-30-2020 Start: 08-17-2020 End: 12-30-2020 take 5 mg by mouth three times daily as needed for muscle spasms Cyclobenzaprine 10 MG tablet Discontinued 5 mg PO THREE TIMES A DAY as needed for Muscle Spasm 90 0 August 31, 2020 7:47pm December 30, 2020 10:04am Start: 08-17-2020 End: 12-30-2020 take 5 mg by mouth three times daily Cyclobenzaprine Discontinued 5 MG PO THREE TIMES A DAY 90 August 31, 2020 6:47pm December 30, 2020 9:04am Start: 10-09-2014 End: 01-30-2019 Comment on above: Take 1 tablet by shaista three times daily as needed for Muscle Spasm. dexamethasone 4 mg oral tabl et (20 sources) Corticosteroid Start: 06-03-2023 End: 06-06-2023 Start: 06-03-2023 End: 06-06-2023 take 6 mg by mouth once daily Dexamethasone Discontinu ed 6 MG PO DAILY June 03, 2023 1:00am June 06, 2023 8:56am docusate sodium 50 mg / [facility] nursing 8.6 mg oral tablet (20 sources) Start: 01-06-2023 End: 06-01-2023 Start: 01-06-2023 End: 06-01-2023 Sennosides-Docusate Sodium ( Stool Softener-Stimulant Laxat) 8.6-50 mg Tablet Discontinued 2 {tbl} PO TWICE A DAY 120 30 0 January 24, 2023 12:00am June 01, 2023 12:02pm Start: 01-06-2023 End: 06-01-2023 Start: 06-01-2020 End: 07-18-2020 Start: 06-01-2020 End: 07-18-2020 Sennosides-Docusate Sodium 1 TABLET tablet Discontinued 2 {tbl} PO TWICE A DAY 120 0 June 01, 2020 1:00am July 18, 2020 3:00pm Start: 06-01-2020 End: 07-18-2020 take 2 tablets by mouth twice daily Sennosides-Docusate Sodium Discontinued 2 TABLET PO TWICE A DAY 120 June 01, 2020 1:00am July 18, 2020 3:00pm Start: 06-01-2020 End: 07-18-2020 doxycycline monohydrate 100 mg oral capsule (20 sources) Tetracycline-class Drug Start: 07-18-2020 End: 07-18-2020 ergocalciferol 1.25 mg oral capsule (20 sources) Provitamin D2 Compound Start: 01-06-2023 End: 06-22-2023 folic acid 1 mg oral tablet (20 sources) Start: 09-28-2020 End: 03-10-2023 Start: 09-28-2020 End: 03-10-2023 take 2 mg by mouth once daily Folic Acid Discontinued 2 MG PO DAILY September 28, 2020 12:00am March 10, 2023 2:06pm Start: 08-02-2020 End: 09-25-2020 Start: 08-02-2020 End: 09-25-2020 take 1 tablet by mouth once daily folic acid 1 mg tablet Take 1 tablet by mouth once daily. 08/18/2020 Active Start: 10-09-2014 End: 11-11-2019 Start: 10-09-2014 End: 11-11-2019 take 1 tablet by mouth once daily Folic Acid 1 MG tablet Discontinued 1 mg PO DAILY@0800 October 09, 2014 12:00am November 11, 2019 2:21pm Comment on above: Take 1 tablet by shaista th once daily. Food Supplemt, Lactose-Reduced (20 sources) Start: 08-10-2020 End: 08-10-2020 take 1 mL by mouth four times daily Food Supplemt, Lactose-Reduced Discontinued 120 ML PO 4 TIMES DAILY August 10, 2020 10:16am August 10, 2020 2:40pm Start: 08-10-2020 End: 08-10-2020 take 1 mL by mouth four times daily Food Supplemt, Lactose-Reduced Discontinued 120 ML PO 4 TIMES DAILY August 09, 2020 11:00pm August 10, 2020 1:40pm Start: 08-10-2020 End: 08-10-2020 take 1 mL by mouth four times daily Food Supplemt, Lactose-Reduced Discontinued 120 ML PO 4 TIMES DAILY August 10, 2020 12:00am August 10, 2020 2:40pm Food Supplemt, Lactose-Reduced 120 ML liquid (10 sources) Start: 08-10-2020 End: 08-10-2020 take 1 mL by mouth four times daily Food Supplemt, Lactose-Reduced 120 ML liquid Discontinued 120 mL PO 4 TIMES DAILY 0 August 10, 2020 12:00am August 10, 2020 2:40pm Start: 08-10-2020 End: 08-10-2020 take 1 mL by mouth four times daily Food Supplemt, Lactose-Reduced 120 ML liquid Discontinued 120 mL PO 4 TIMES DAILY August 10, 2020 12:00am August 10, 2020 2:40pm iv contrast (will be provided with radiology test) (5 sources) Start: 01-02-2025 End: 02-12-2025 inject 1 dose intravenously once iv contrast (will be provided with radiology test) Indications: Aortic valve stenosis, etiology of cardiac valve disease unspecified CTA ABD/PEL - No IV access, insert saline lock prior to the sedation, infusion, injection for imaging exam. Discontinue saline lock post exam. If Pt. has a central line or IVAD, may access for administration according to line specific nursing protocol. Once exam is complete flush line and de-access according to line specific nursing protocol in the CT contrast administration guidelines link. 1 each 01/02/2025 02/12/2025 Discontinued (Course of therapy completed) Start: 01-02-2025 inject 1 dose intravenously on ce iv contrast (will be provided with radiology test) Indications: Aortic valve stenosis, etiology of cardiac valve disease unspecified CTA ABD/PEL - No IV access, insert saline lock prior to the sedation, infusion, injection for imaging exam. Discontinue saline lock post exam. If Pt. has a central line or IVAD, may access for administration according to line specific nursing protocol. Once exam is complete flush line and de-access according to line specific nursing protocol in the CT contrast administration guidelines link. 1 each 01/02/2025 Active ketorolac tromethamine 4 mg/ml ophthalmic solution (20 sources) Nonsteroidal Anti-inflammatory Drug, Cyclooxygenase Inhibitor Start: 08-17-2020 End: 08-31-2020 Start: 08-17-2020 End: 08-31-2020 Ketorolac Discontinued 1 DRP EACH EYE August 17, 2020 12:00am August 31, 2020 7:47pm Start: 04-08-2016 Ketorolac Trom ethamine (ACLUAR LS) 0.4 % drop 04/08/2016 Active levoFLOXacin 750 mg oral tab let (20 sources) Quinolone Antimicrobial Start: 01-24-2023 End: 06-01-2023 lidocaine 0.05 mg/mg medicat ed patch (20 sources) Antiarrhythmic, Amide Local Anesthetic Start: 01-06-2023 End: 06-01-2023 menthol 0.0044 mg/mg / zinc oxide 0.206 mg/mg topical ointment (20 sources) Start: 08-31-2020 End: 09-25-2020 Start: 08-31-2020 End: 09-25-2020 Menthol-Zinc Oxide Discontin ued 1 APPLIC TOPICAL 0600,0 August 31, 2020 12:00am September 25, 2020 9:42am metaxalone 800 mg oral table t (20 sources) Start: 06-20-2019 End: 11-11-2019 methocarbamol 500 mg oral ta blet (20 sources) Muscle Relaxant Start: 03-13-2018 End: 01-29-2019 Start: 03-13-2018 End: 01-29-2019 take 1500 mg by mouth once daily Methocarbamol Discontinued 1500 MG PO DAILY March 13, 2018 12:00am January 29, 2019 4:09pm Methylprednisolone (20 sources) Corticosteroid Start: 09-02-2020 End: 09-25-2020 Methylprednisolone 4 MG tabl et Discontinued 4 mg PO DIRECTED 1 0 September 02, 2020 12:00am September 25, 2020 9:41am Start: 09-02-2020 End: 09-25-2020 metOLazone 2.5 mg oral table t (20 sources) Thiazide-like Diuretic Start: 12-05-2022 End: 02-12-2025 Start: 12-05-2022 End: 12-28-2022 Comment on above: Take 2.5 mg by mouth Once Weekly with Dialysis. 24 hr metoprolol succinate 25 mg extended release oral tablet (20 sources) beta-Adrenergic Santiago Start: 08-17-2020 End: 02-12-2025 take 0.5 tablet by mouth once daily metoprolol succinate ER (TOPROL XL) 25 mg 24 hr tablet Take 0.5 tablets by mouth once daily. 08/17/2020 02/12/2025 Discontinued (Course of therapy completed) Start: 05-13-2020 End: 09-28-2020 Start: 05-13-2020 End: 09-28-2020 Metoprolol Tartrate 25 MG ta blet Discontinued 12.5 mg PO DAILY July 18, 2020 2:59pm September 28, 2020 1:30pm Blood Pressure Start: 05-13-2020 End: 09-28-2020 take 1 tablet by mouth twice daily Metoprolol Tartrate 25 MG tablet Discontinued 25 mg PO TWICE A DAY May 13, 2020 7:31pm June 01, 2020 7:35pm Blood Pressure Start: 05-13-2020 End: 09-28-2020 take 12.5 mg by mouth twice daily Metoprolol Tartrate Discontinued 12.5 MG PO TWICE A DAY June 01, 2020 12:00am July 18, 2020 2:00pm Start: 05-13-2020 End: 09-28-2020 take 12.5 mg by mouth once daily Metoprolol Tartrate Discontinued 12.5 MG PO DAILY July 18, 2020 1:59pm September 28, 2020 12:30pm Comment on above: Take 0.5 tablets by mouth once daily. Multivitamin With Folic Acid (20 sources) Start: 05-08-2018 End: 11-11-2019 take 1 tablet by mouth once daily Multivitamin With Folic Acid Discontinued 1 TABLET PO DAILY May 08, 2018 12:54pm November 11, 2019 2:23pm Start: 05-08-2018 End: 11-11-2019 take 1 tablet by mouth once daily Multivitamin With Folic Acid Discontinued 1 TABLET PO DAILY May 08, 2018 12:00am November 11, 2019 1:23pm Start: 05-08-2018 End: 11-11-2019 take 1 tablet by mouth once daily Multivitamin With Folic Acid Discontinued 1 TABLET PO DAILY May 08, 2018 1:00am November 11, 2019 2:23pm Multivitamin With Folic Acid 1 TABLET tablet (10 sources) Start: 05-08-2018 End: 11-11-2019 take 1 tablet by mouth once daily Multivitamin With Folic Acid 1 TABLET tablet Discontinued 1 {tbl} PO DAILY May 08, 2018 1:00am November 11, 2019 2:23pm SUPPLEMENT Start: 05-08-2018 End: 11-11-2019 take 1 tablet by mouth once daily Multivitamin With Folic Acid 1 TABLET tablet Discontinued 1 {tbl} PO DAILY May 08, 2018 1:00am November 11, 2019 2:23pm Multivitamin With Iron (20 sources) Start: 11-11-2019 End: 04-06-2020 take 1 tablet by mouth once daily Multivitamin With Iron Discontinued 1 TABLET PO DAILY November 11, 2019 2:24pm April 06, 2020 11:35am Start: 11-11-2019 End: 04-06-2020 take 1 tablet by mouth once daily Multivitamin With Iron Discontinued 1 TABLET PO DAILY November 10, 2019 11:00pm April 06, 2020 10:35am Start: 11-11-2019 End: 04-06-2020 take 1 tablet by mouth once daily Multivitamin With Iron Discontinued 1 TABLET PO DAILY November 11, 2019 12:00am April 06, 2020 11:35am Multivitamin With Iron tablet (10 sources) Start: 11-11-2019 End: 04-06-2020 Multivitamin With Iron tablet Discontinued 1 {tbl} PO DAILY November 11, 2019 12:00am April 06, 2020 11:35am oxyCODONE hydrochloride 5 mg oral tablet (20 sources) Opioid Agonist Start: 01-06-2023 End: 06-01-2023 Start: 09-25-2020 End: 12-30-2020 Start: 09-25-2020 End: 12-30-2020 take 1 tablet by mouth every six hours as needed Oxycodone 5 mg tablet Discontinued 5 mg PO EVERY 6 HOURS as needed 0 September 28, 2020 1:29pm December 30, 2020 9:50am Start: 08-31-2020 End: 09-07-2020 Start: 08-31-2020 End: 09-07-2020 take 1 tablet by mouth every six hours as needed for pain Oxycodone 5 MG tablet Discontinued 5 mg PO EVERY 6 HOURS NEEDED as needed for Pain Score 6-10 28 7 0 August 31, 2020 September 06, 2020 12:00am September 07, 2020 12:03am Spinal stenosis of lumbar region Spinal stenosis, lumbar region without neurogenic claudication Start: 08-10-2020 End: 08-12-2020 take 1-10 tablets by mouth every six hours as needed for pain Oxycodone 5 MG tablet Discontinued 15 mg PO EVERY 6 HOURS as needed for Pain 1-10 Or Fever 12 3 0 August 10, 2020 August 12, 2020 2:34pm Rheumatoid arthritis Rheumatoid arthritis, unspecified Start: 08-10-2020 End: 08-12-2020 take 15 mg by mouth every six hours Oxycodone Discontinued 15 MG PO EVERY 6 HOURS 12 3 August 10, 2020 August 12, 2020 1:34pm Start: 08-02-2020 End: 08-12-2020 Start: 08-02-2020 End: 08-10-2020 take 15 mg by mouth every four hours as needed Oxycodone Discontinued 15 MG PO EVERY 4 HOURS NEEDED August 02, 2020 1:00am August 10, 2020 10:24am Start: 07-01-2020 End: 07-13-2020 Start: 06-01-2020 End: 07-18-2020 Start: 06-01-2020 End: 07-13-2020 take 2 tablets by mouth every four hours as needed for pain Oxycodone 5 MG tablet Discontinued 10 mg PO Q4H as needed for Pain Score 6-10 36 0 June 01, 2020 July 13, 2020 7:58pm Spinal stenosis of lumbar region Spinal stenosis, lumbar region without neurogenic claudication Start: 06-01-2020 End: 07-18-2020 take 10 mg by mouth every four hours Oxycodone Discontinued 10 MG PO Q4H 36 June 01, 2020 July 13, 2020 7:58pm pantoprazole 40 mg delayed r elease oral tablet (20 sources) Proton Pump Inhibitor Start: 10-31-2021 End: 01-10-2022 Start: 05-11-2021 End: 07-19-2021 polyethylene glycol 3350 170 00 mg powder for oral solution (20 sources) Osmotic Laxative Start: 01-06-2023 End: 01-24-2023 Start: 08-31-2020 End: 09-25-2020 Start: 08-31-2020 End: 09-25-2020 take 17 g by mouth once daily Polyethylene Glycol 3350 17 GM packet Discontinued 17 g PO DAILY 30 0 August 31, 2020 12:00am September 25, 2020 9:42am Start: 07-16-2020 End: 07-18-2020 Start: 07-16-2020 End: 07-18-2020 take 17 g by mouth once daily Polyethylene Glycol 3350 17 GM packet Discontinued 17 g PO DAILY 0 July 16, 2020 1:00am July 18, 2020 3:00pm potassium chloride 10 meq ex tended release oral tablet (20 sources) Start: 10-21-2022 End: 11-14-2022 Start: 10-21-2022 End: 11-14-2022 take 20 mEq by mouth once daily Potassium Chloride Discontinued 20 MEQ PO DAILY 60 October 21, 2022 12:00am November 14, 2022 10:56am prednisoLONE (20 sources) Corticosteroid Start: 08-17-2020 End: 08-31-2020 Prednisolone Acetate (Pf) Discontinued 1 DRP EACH EYE August 17, 2020 4:51pm August 31, 2020 7:47pm Start: 08-17-2020 End: 08-31-2020 Prednisolone Acetate (Pf) Di scontinued 1 DRP EACH EYE August 16, 2020 11:00pm August 31, 2020 6:47pm Start: 08-17-2020 End: 08-31-2020 Prednisolone Acetate (Pf) Di scontinued 1 DRP EACH EYE August 17, 2020 12:00am August 31, 2020 7:47pm Start: 04-08-2016 End: 02-10-2025 prednisoLONE acetate (PRED F ORTE, ECONOPRED PLUS) 1 % ophthalmic suspension 04/08/2016 02/10/2025 Discontinued Prednisolone Acetate (Pf) 5 ML drops,suspension (10 sources) Start: 08-17-2020 End: 08-31-2020 Prednisolone Acetate (Pf) 5 ML drops,suspension Discontinued 1 NMA EACH EYE August 17, 2020 12:00am August 31, 2020 7:47pm eyes Start: 08-17-2020 End: 08-31-2020 Prednisolone Acetate (Pf) 5 ML drops,suspension Discontinued 1 NMA EACH EYE August 17, 2020 12:00am August 31, 2020 7:47pm predniSONE 1 mg oral tablet (20 sources) Start: 03-10-2023 End: 03-08-2024 Start: 03-10-2023 End: 06-01-2023 Start: 03-10-2023 End: 03-08-2024 Start: 03-10-2023 End: 06-22-2023 take 4 tablets by mouth once daily Prednisone 1 mg tablet Discontinued 4 mg PO DAILY 120 June 06, 2023 10:44am June 22, 2023 10:18am Start: 03-10-2023 End: 03-08-2024 Start: 03-10-2023 End: 06-22-2023 take 3.5 mg by mouth once daily, then take 2.5 mg by mouth once daily, then take 3 tablets by mouth once daily Prednisone 1 mg tablet Discontinued 4 mg PO DAILY 120 June 06, 2023 8:56am June 06, 2023 10:44am 3.5 mg daily for 3 weeks (with 2.5 mg daily) then 3 mg daily Start: 03-10-2023 End: 06-22-2023 take 10 mg by mouth once daily Prednisone Active 10 MG PO DAILY June 22, 2023 1:00am Start: 10-20-2022 End: 06-01-2023 Start: 12-30-2020 End: 02-10-2025 Prednisone Active 5 MG PO NEEDED December 30, 2020 9:59am Start: 12-30-2020 Prednisone Act lieda 10 MG PO NEEDED December 30, 2020 12:00am Start: 08-10-2020 End: 08-10-2020 Start: 08-10-2020 End: 08-10-2020 Prednisone 10 MG tablet Disc ontinued 1 {tbl} PO DAILY August 10, 2020 12:00am August 10, 2020 2:40pm 4 tabs daily for 3 days, then 3 tabs daily for 3 days, then 2 tabs daily for 3 days, then 1 tab daily for 3 days. Start: 11-11-2019 End: 04-06-2020 Start: 10-09-2014 End: 01-30-2019 Start: 10-09-2014 End: 01-30-2019 take 5 mg by mouth once daily as needed Prednisone 10 mg tablet Discontinued 5 mg PO DAILY as needed for RA January 29, 2019 4:09pm January 30, 2019 10:59am Start: 10-09-2014 End: 01-30-2019 take 5 mg by mouth once daily Prednisone Discontinued 5 MG PO DAILY January 29, 2019 3:09pm January 30, 2019 9:59am Comment on above: Take 5 mg by mouth o nce daily. rivaroxaban 15 mg oral table t (20 sources) Factor Xa Inhibitor Start: 01-24-2023 End: 10-23-2024 Start: 04-14-2021 End: 01-24-2023 sennosides, skilled nursing 8.6 mg oral tablet (20 sources) Start: 08-31-2020 End: 02-12-2025 Start: 08-17-2020 End: 08-31-2020 Comment on above: Take 8.6 mg by mouth twice daily. spironolactone 25 mg oral ta blet (20 sources) Aldosterone Antagonist Start: 11-14-2022 End: 10-23-2024 topiramate 25 mg oral tablet (20 sources) Start: 12-10-2018 End: 02-12-2025 Comment on above: Take 25 mg by mouth twice daily. traMADol hydrochloride 50 mg oral tablet (20 sources) Opioid Agonist Start: 06-01-2023 End: 11-05-2024 Start: 02-07-2022 take 50 mg by mouth three times daily Tramadol Active 50 MG PO THREE TIMES A DAY February 07, 2022 12:00am vitamin b12 0.5 mg oral tabl et (20 sources) Vitamin B12 Start: 10-09-2014 End: 01-30-2019 Start: 10-09-2014 End: 01-30-2019 take 1 tablet by mouth once daily Cyanocobalamin (Vitamin B-12) 500 mcg tablet Discontinued 500 ug PO DAILY@0800 January 29, 2019 4:07pm January 30, 2019 11:01am SUPPLEMENT Start: 10-09-2014 End: 01-30-2019 take 5000 ug by mouth once daily Cyanocobalamin (Vitamin B-12) Discontinued 5000 MCG PO DAILY@0800 October 09, 2014 12:00am January 29, 2019 4:09pm Vitamin E28-Rimhk Acid (20 sources) Start: 01-10-2022 End: 03-10-2023 take 1 tablet by mouth once daily Vitamin U42-Hjcep Acid Discontinued 1 TABLET PO DAILY January 10, 2022 1:42pm March 10, 2023 2:07pm Start: 01-10-2022 End: 03-10-2023 take 1 tablet by mouth once daily Vitamin M31-Byjnz Acid Discontinued 1 TABLET PO DAILY January 10, 2022 12:42pm March 10, 2023 1:07pm Start: 01-10-2022 take 1 tablet by shaista th once daily Vitamin O42-Wfzvu Acid Active 1 TABLET PO DAILY January 10, 2022 12:42pm Start: 01-10-2022 take 1 tablet by shaista th once daily Vitamin O57-Dvseu Acid Active 1 TABLET PO DAILY January 10, 2022 1:42pm Start: 10-31-2021 take 1 tablet by shaista th once daily Vitamin W28-Drtxx Acid Active 1 TABLET PO DAILY October 31, 2021 8:51am Start: 10-31-2021 End: 01-10-2022 take 1 tablet by mouth once daily Vitamin F35-Lenrp Acid Discontinued 1 TABLET PO DAILY October 30, 2021 11:00pm January 10, 2022 12:42pm Start: 10-31-2021 End: 01-10-2022 take 1 tablet by mouth once daily Vitamin T44-Zaruv Acid Discontinued 1 TABLET PO DAILY October 31, 2021 12:00am January 10, 2022 1:42pm Start: 10-31-2021 take 1 tablet by shaista th once daily Vitamin U20-Jzbng Acid Active 1 TABLET PO DAILY October 31, 2021 12:00am Vitamin W69-Vozcv Acid (10 sources) Start: 01-10-2022 End: 03-10-2023 Start: 10-31-2021 End: 01-10-2022 Vitamin L46-Urmys Acid 2,500 -400 mcg Tablet,Disintegrating (10 sources) Start: 10-31-2021 End: 01-10-2022 Vitamin K83-Dljrb Acid 2,500-400 mcg Tablet,Disintegrating Discontinued 1 {tbl} PO DAILY October 31, 2021 12:00am January 10, 2022 1:42pm Vitamin F97-Roqno Acid 2,500 -400 mcg tablet,disintegrating (10 sources) Start: 01-10-2022 End: 03-10-2023 Vitamin M47-Svfdt Acid 2,500-400 mcg tablet,disintegrating Discontinued 1 {tbl} PO DAILY January 10, 2022 1:42pm March 10, 2023 2:07pm Check with primary doctor Start: 01-10-2022 End: 03-10-2023 Vitamin P08-Klsnn Acid 2,500 -400 mcg tablet,disintegrating Discontinued 1 {tbl} PO DAILY January 10, 2022 1:42pm March 10, 2023 2:07pm Problems Active Problems Problem Classification Problem Date Documented Da te Episodic/Chronic Abdominal hernia (20 sources) Recurrent umbilical hernia; Translations: [Umbilical hernia without obstruction or gangrene] 05-07-2020 Episodic Abdominal pain (20 sources) Right inguinal pain; Translations: [Right lower quadrant pain] 01-05-2022 Episodic Acute myocardial infarction (20 sources) Myocardial infarction; Translations: [Non-ST elevation (NSTEMI) myocardial infarction] 08-12-2020 Chronic Acute posthemorrhagic anemia (20 sources) Acute posthemorrhagic anemia; Translations: [Acute posthemorrhagic anemia] 10-20-2022 Episodic Cardiac dysrhythmias (20 sources) Atrial fibrillation; Translations: [Unspecified atrial fibrillation] Onset: Chronic Coagulation and hemorrhagic disorders (20 sources) Blood coagulation disorder; Translations: [Coagulation defect, unspecified] 08-10-2021 Chronic Conditions associated with dizziness or vertigo (20 sources) Dizziness; Translations: [Dizziness and giddiness] 01-17-2024 Episodic Congestive heart failure; nonhypertensive (20 sources) Acute exacerbation of chronic congestive heart failure; Translations: [Acute on chronic diastolic (congestive) heart failure] 01-07-2023 Chronic Coronary atherosclerosis and other heart disease (20 sources) Coronary arteriosclerosis; Translations: [Atherosclerotic heart disease of [place] coronary artery without angina pectoris] Onset: Chronic Comment on above: Successful PCI on OM 2 with GAGE. Unsuccessful PCI of SEWER DIGGER of LAD per Dr. Garcia on 08/06/2020; Deficiency and other anemia (2 sources) Iron deficiency anemia secondary to blood loss (chronic); Translations: [Iron deficiency anemia secondary to blood loss (chronic)] Onset: 5 Chronic Deficiency and other anemia (20 sources) Anemia; Translations: [Anemia, unspecified] 06-11-2021 Episodic Comment on above: S/P IV replacement w ith Injectafer. Iron profile is normal, Iron level is 88 today, Ferritin is 724. HGB is 12.9. Deficiency and other anemia (20 sources) Anemia, unspecified; Translations: [Anemia, unspecified] Episodic Deficiency and other anemia (20 sources) Iron deficiency anemia; Translations: [Iron deficiency anemia, unspecified] 01-07-2023 Episodic Disorders of lipid metabolism (20 sources) Hyperlipidemia; Translations: [Hyperlipidemia, unspecified] Onset: 5 01-07-2023 Chronic Disorders of teeth and jaw (20 sources) Bleeding gums; Translations: [Other specified disorders of gingiva and edentulous alveolar ridge] 11-08-2021 Episodic E Codes: Fall (20 sources) Fall; Translations: [Unspecified fall, initial encounter] 01-21-2023 Episodic Esophageal disorders (20 sources) Gastroesophageal reflux disease; Translations: [Gastro-esophageal reflux disease without esophagitis] 07-18-2020 Chronic Fever of unknown origin (20 sources) Fever; Translations: [Fever, unspecified] 01-05-2022 Episodic Gastrointestinal hemorrhage (20 sources) Gastrointestinal hemorrhage; Translations: [Hemorrhage of anus and rectum] 08-10-2021 Episodic Heart valve disorders (20 sources) Aortic stenosis, non-rheumatic ; Translations: [Nonrheumatic aortic (valve) stenosis] Onset: Chronic Hyperplasia of prostate (20 sources) Benign prostatic hyperplasia; Translations: [Benign prostatic hyperplasia without lower urinary tract symptoms] 07-18-2020 Chronic Intestinal obstruction without hernia (20 sources) Food bolus obstruction of intestine; Translations: [Other intestinal obstruction unspecified as to partial versus complete obstruction] 10-21-2022 Episodic Malaise and fatigue (20 sources) Asthenia; Translations: [Other malaise] 01-05-2022 Episodic Mood disorders (20 sources) Depressive disorder; Translations: [Depression] 08-12-2023 Chronic Nutritional deficiencies (20 sources) Deficiency of macronutrients; Translations: [Unspecified severe protein-calorie malnutrition] Onset: 1 08-13-2020 Chronic Open wounds of head; neck; and trunk (8 sources) Tear of skin; Translations: [Open wound(s) (multiple) of unspecified site(s), without mention of complication] 01-08-2025 Episodic Osteoarthritis (20 sources) Arthritis; Translations: [Unspecified osteoarthritis, unspecified site] 01-05-2022 Chronic Osteoporosis (20 sources) Osteoporosis; Translations: [Age-related osteoporosis without current pathological fracture] Onset: 5 11-25-2022 Chronic Other aftercare (20 sources) Long-term current use of anticoagulant; 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] 05-17-2021 Episodic Other aftercare (20 sources) Drug therapy finding; Translations: [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] 01-10-2022 Episodic Other aftercare (12 sources) intermediate (current) use of anticoagulants; Translations: [Long-term (current) use of anticoagulants] 10-22-2022 Episodic Other aftercare (14 sources) Patient encounter status; Translations: [Encounter for therapeutic drug level monitoring] 12-26-2022 Episodic Other aftercare (20 sources) Long-term current use of diuretic; Translations: [Encounter for therapeutic drug level monitoring] 12-26-2022 Episodic Other aftercare (20 sources) Long-term current use of drug therapy; Translations: [Encounter for therapeutic drug level monitoring] 10-23-2024 Episodic Other aftercare (1 source) Encounter for therapeutic drug level monitoring; Translations: [Encounter for therapeutic drug level monitoring] Onset: Episodic Other and ill-defined heart disease (20 sources) Left ventricular wall hypokinetic; Translations: [Other ill-defined heart diseases] 03-18-2019 Chronic Other connective tissue disease (20 sources) Spasm; Translations: [Other muscle spasm] 01-05-2022 Episodic Other connective tissue disease (20 sources) Pain in lower limb; Translations: [Pain in right leg] 05-07-2020 Episodic Other connective tissue disease (20 sources) Rhabdomyolysis; Translations: [Rhabdomyolysis] 01-04-2023 Episodic Other connective tissue disease (9 sources) Rhabdomyolysis; Translations: [Rhabdomyolysis] 01-04-2023 Episodic Other connective tissue disease (20 sources) Neuropathic pain; Translations: [Neuralgia and neuritis, unspecified] 01-07-2023 Episodic Other connective tissue disease (5 sources) Neuralgia and neuritis, unspecified; Translations: [Neuralgia, neuritis, and radiculitis, unspecified] 01-06-2023 Episodic Other connective tissue disease (20 sources) Rotator cuff arthropathy of right shoulder; Translations: [Unspecified rotator cuff tear or rupture of right shoulder, not specified as traumatic] 09-26-2024 Episodic Other connective tissue disease (5 sources) Pain in bilateral legs; Translations: [Pain in right leg] 01-04-2023 Episodic Other diseases of veins and lymphatics (2 sources) Lymphedema of bilateral lower limbs; Translations: [Lymphedema, not elsewhere classified] 09-23-2022 Chronic Other diseases of veins and lymphatics (2 sources) Lymphedema, not elsewhere classified; Translations: [Other lymphedema] 09-23-2022 Chronic Other diseases of veins and lymphatics (20 sources) Lymphedema; Translations: [Lymphedema, not elsewhere classified] 11-08-2024 Chronic Other endocrine disorders (20 sources) Hypocortisolism secondary to another disorder; Translations: [Other adrenocortical insufficiency] 03-10-2023 Chronic Other endocrine disorders (6 sources) Other adrenocortical insufficiency; 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] 03-10-2023 Chronic Other fractures (20 sources) Compression fracture ; Translations: [Compression fracture] 11-25-2022 Episodic Other fractures (20 sources) Compression fracture of lumbar spine; Translations: [Wedge compression fracture of fifth lumbar vertebra, initial encounter for closed fracture] 12-09-2022 Episodic Other fractures (1 source) Closed fracture of multiple right ribs; Translations: [Multiple fractures of ribs, right side, initial encounter for closed fracture] 12-27-2022 Episodic Other fractures (20 sources) Fracture of multiple ribs ; Translations: [Multiple fractures of ribs, unspecified side, initial encounter for closed fracture] 01-14-2023 Episodic Other fractures (8 sources) Wedge compression fracture of first lumbar vertebra, initial encounter for closed fracture; Translations: [Closed fracture of lumbar vertebra without mention of spinal cord injury] 01-06-2023 Episodic Other fractures (8 sources) Wedge compression fracture of fifth lumbar vertebra, initial encounter for closed fracture; Translations: [Closed fracture of lumbar vertebra without mention of spinal cord injury] 01-06-2023 Episodic Other fractures (8 sources) Multiple fractures of ribs, unspecified side, initial encounter for closed fracture; Translations: [Closed fracture of multiple ribs, unspecified] 01-06-2023 Episodic Other gastrointestinal disorders (20 sources) Diarrhea; Translations: [Diarrhea, unspecified] 06-11-2021 Episodic Other gastrointestinal disorders (10 sources) Diarrhea, unspecified; Translations: [Diarrhea] Episodic Other gastrointestinal disorders (20 sources) Constipation; Translations: [Constipation, unspecified] 04-27-2022 Episodic Other gastrointestinal disorders (14 sources) Constipation, unspecified; Translations: [Constipation, unspecified] 04-27-2022 Episodic Other hematologic conditions (12 sources) Raised cardiac enzyme or marker; Translations: [Other specified abnormalities of plasma proteins] 09-23-2022 Episodic Other hematologic conditions (2 sources) Other specified abnormalities of plasma proteins; Translations: [Other abnormal blood chemistry] 09-23-2022 Episodic Other injuries and conditions due to external causes (20 sources) History of fall; Translations: [History of falling] 12-28-2022 Episodic Other injuries and conditions due to external causes (20 sources) Closed injury of head; Translations: [Unspecified injury of head, initial encounter] 01-21-2023 Episodic Other injuries and conditions due to external causes (8 sources) History of falling; Translations: [History of fall] 01-06-2023 Episodic Other injuries and conditions due to external causes (1 source) Injury, unspecified, initial encounter; Translations: [Injury, unspecified, initial encounter] Onset: 5 Episodic Other injuries and conditions due to external causes (1 source) Encounter for examination and observation following other accident; Translations: [Encounter for examination and observation following other accident] Onset: 5 Episodic Other lower respiratory disease (20 sources) Dyspnea; Translations: [Dyspnea, unspecified] 05-17-2021 Episodic Other lower respiratory disease (20 sources) Computed tomography result abnormal; Translations: [Other nonspecific abnormal finding of lung field] 08-09-2021 Episodic Other lower respiratory disease (8 sources) Other nonspecific abnormal finding of lung field; Translations: [Other nonspecific abnormal finding of lung field] Episodic Other lower respiratory disease (20 sources) Hypoxia; Translations: [Hypoxemia] 09-23-2022 Episodic Other lower respiratory disease (20 sources) Hypoxemia; Translations: [Hypoxemia] 09-23-2022 Episodic Other lower respiratory disease (2 sources) Rib pain; Translations: [Pleurodynia] 12-27-2022 Episodic Other lower respiratory disease (1 source) Other forms of dyspnea; Translations: [Dyspnea on exertion] Onset: Episodic Other male genital disorders (20 sources) Pain in scrotum ; Translations: [Scrotal pain] 01-05-2022 Episodic Other nervous system disorders (20 sources) Chronic pain; Translations: [Other chronic pain] 01-07-2023 Chronic Other nervous system disorders (5 sources) Other chronic pain; Translations: [Other chronic pain] 01-06-2023 Chronic Other non-traumatic joint disorders (1 source) Other specific arthropathies, not elsewhere classified, right shoulder; Translations: [Other specific arthropathies, not elsewhere classified, right shoulder] Onset: Chronic Other non-traumatic joint disorders (20 sources) Effusion of joint of right hip; Translations: [Effusion, right hip] 01-05-2022 Episodic Other non-traumatic joint disorders (20 sources) Pain in wrist; Translations: [Pain in left wrist] 01-05-2022 Episodic Other non-traumatic joint disorders (5 sources) Pain of left wrist; Translations: [Pain in left wrist] 01-04-2023 Episodic Other nutritional; endocrine; and metabolic disorders (20 sources) Loss of appetite; Translations: [Anorexia] 01-05-2022 Episodic Other screening for suspected conditions (not mental disorders or infectious disease) (20 sources) Plain X-ray result abnormal; Translations: [Abnormal findings on diagnostic imaging of other specified body structures] 11-14-2022 Chronic Other screening for suspected conditions (not mental disorders or infectious disease) (20 sources) Echocardiogram abnormal; Translations: [Abnormal findings on diagnostic imaging of heart and coronary circulation] 03-18-2019 Episodic Other upper respiratory disease (20 sources) Allergic rhinitis; Translations: [Allergic rhinitis, unspecified] 05-17-2021 Chronic Other upper respiratory disease (20 sources) Anterior epistaxis; Translations: [Epistaxis] 05-17-2021 Episodic Other upper respiratory infections (1 source) Acute upper respiratory infection; Translations: [Acute upper respiratory infection, unspecified] Episodic June-; endo-; and myocarditis; cardiomyopathy (except that caused by tuberculosis or sexually transmitted disease) (6 sources) Heart valve disorder; Translations: [Endocarditis, valve unspecified] Onset: 02-10-2025 Chronic June-; endo-; and myocarditis; cardiomyopathy (except that caused by tuberculosis or sexually transmitted disease) (20 sources) Pericardial effusion; Translations: [Pericardial effusion] 10-11-2022 Episodic Peripheral and visceral atherosclerosis (1 source) Peripheral vascular disease; Translations: [Peripheral vascular disease, unspecified] 11-05-2024 Chronic Pleurisy; pneumothorax; pulmonary collapse (20 sources) Pleural effusion; Translations: [Pleural effusion, not elsewhere classified] 10-20-2022 Episodic Residual codes; unclassified (20 sources) Insomnia; Translations: [Insomnia, unspecified] 01-05-2022 Episodic Residual codes; unclassified (20 sources) Edema; Translations: [Edema, unspecified] 07-13-2020 Episodic Residual codes; unclassified (20 sources) History of operative procedure on lumbar spinal structure; Translations: [Other specified postprocedural states] 01-05-2022 Episodic Residual codes; unclassified (20 sources) Early satiety; Translations: [Early satiety] 04-27-2022 Episodic Residual codes; unclassified (6 sources) Early satiety; Translations: [Early satiety] 04-27-2022 Episodic Residual codes; unclassified (20 sources) Bilateral lower limb edema; Translations: [Localized edema] 10-11-2022 Episodic Residual codes; unclassified (19 sources) Localized edema; Translations: [Edema] 10-22-2022 Episodic Residual codes; unclassified (10 sources) Edema, unspecified; Translations: [Edema] 10-22-2022 Episodic Residual codes; unclassified (1 source) Procedure not done; Translations: [Procedure and treatment not carried out, unspecified reason] 01-09-2024 Episodic Rheumatoid arthritis and related disease (20 sources) Rheumatoid arthritis; Translations: [Rheumatoid arthritis, unspecified] Onset: 01-05-2022 Chronic Spondylosis; intervertebral disc disorders; other back problems (20 sources) Spinal stenosis of lumbar region; Translations: [Spinal stenosis, lumbar region without neurogenic claudication] 01-05-2022 Episodic Substance-related disorders (20 sources) Other psychoactive substance dependence, uncomplicated; Translations: [Steroid dependence] Onset: 5 12-09-2022 Chronic Superficial injury; contusion (20 sources) Hematoma; Translations: [Contusion of abdominal wall, initial encounter] 12-28-2022 Episodic Syncope (20 sources) Syncope; Translations: [Syncope and collapse] Onset: 1 08-12-2020 Episodic Unclassified (10 sources) Autogenerated Problem Onset: 5 01-11-2025 Unclassified (1 source) Cough, unspecified; Translations: [Cough, unspecified] Onset: 4 Unclassified (1 source) Aortic Stenosis Onset: 5 Viral infection (20 sources) Viral disease; Translations: [Viral infection, unspecified] Episodic Past or Other Problems Problem Classification Problem Date Documented Da te Episodic/Chronic Coronary atherosclerosis and other heart disease (8 sources) Presence of coronary angioplasty implant and graft; Translations: [Percutaneous transluminal coronary angioplasty status] Onset: 08-06-2020 Episodic Deficiency and other anemia (6 sources) Iron deficiency anemia, unspecified; Translations: [Iron deficiency anemia, unspecified] Onset: 12-12-2024 01-06-2023 Episodic Other aftercare (20 sources) 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; Translations: [Long-term (current) use of other medications] Onset: 10-23-2024 Episodic Other connective tissue disease (1 source) Unspecified rotator cuff tear or rupture of right shoulder, not specified as traumatic; Translations: [Unspecified rotator cuff tear or rupture of right shoulder, not specified as traumatic] Onset: 10-29-2024 Episodic Other non-traumatic joint disorders (20 sources) Pain in right shoulder; Translations: [Right shoulder pain] Onset: 11-12-2024 09-26-2024 Episodic Unclassified (20 sources) H/o finger stitches 12-16-2021 Comment on above: Left index Unclassified (20 sources) H/o three feet of intestines removed 12-16-2021 Results Test Name Value Interpretation Reference Range Facility CNPNon 11-11-2025 RAJEEV Telephone (AGCARDPOB ) BRYCE ANN ([id number]) 1940 M Date Time Provider Department 04/08/25 MEGHANA FLOR AGCARDPOCecile During your visit today, we recorded the following information about you: Meghana Flor APRN.VERITO 04/08/2025 1:15 PM Addendum Called pt daughter, Roni to relay that we need to reschedule her dad's TAVR date to 05/01/25. No answer, left VM Please schedule patient for TAVR with Dr. Monae on 05/01/25 at 0715 am - patient to arrive at 0515 AM Please schedule patient for PAT with myself on 04/23/25 at 2 pm - patient to arrive at 1:45 am Preop blood work to be drawn anytime the week prior to our PAT visit. Please schedule patient for 1 week post op appt (they prefer 0830) , 1 month post op echo, and follow up appt with myself. Meghana Flor APRN.Ximena Mendez 04/08/2025 2:34 PM Signed Addended by: XIMENA BRYSON on: 04/08/2025 02:34 PM Modules accepted: Orders Allergies As of Date: 04/08/2025 (No Known Allergies) Date Reviewed: 04/01/2025 Reviewed by: Asia Cast MA - Fully Assessed Prescriptions as of 04/09/2025 - clopidogrel (PLAVIX) 75 mg tablet Take 1 tablet by mouth once daily. Patient should start on February 27, 2025. - melatonin 3 mg tablet Take 3 tablets by mouth once daily. - gabapentin (NEURONTIN) 300 mg capsule Take 1 capsule by mouth daily at bedtime for 90 days. - rivaroxaban (XARELTO) 15 mg tablet Take 15 mg by mouth daily with dinner. - finasteride (PROSCAR) 5 mg tablet Take 5 mg by mouth once daily. - acetaminophen (TYLENOL) 325 mg tablet Take 2 tablets by mouth every 4 hours as needed. - tamsulosin (FLOMAX) 0.4 mg Take 1 capsule by mouth daily at bedtime. - atorvastatin (LIPITOR) 40 mg tablet Take 1 tablet by mouth daily at bedtime. - sulfaSALAzine EC (AZULFIDINE EN) 500 mg EC tablet Take 1 tablet by mouth three times daily. - folic acid 1 mg tablet Take 1 tablet by mouth once daily. - traZODone (DESYREL) 50 mg tablet Take 1 tablet by mouth daily at bedtime. - amiodarone (PACERONE) 200 mg tablet Take 200 mg by mouth twice daily. - mirtazapine (REMERON) 15 mg tablet Take 15 mg by mouth daily at bedtime. - methotrexate 2.5 mg tablet - Ketorolac Tromethamine (ACLUAR LS) 0.4 % drop Problem List As Of Date 04/08/2025 Noted Resolved Syncope [R55] 08/12/2020 Severe protein-calorie malnutrition (HCC) [E43] 08/13/2020 Valvular heart disease [I38] 02/10/2025 Stable angina [I20.89] 02/25/2025 Paroxysmal atrial fibrillation (HCC) [I48.0] 02/26/2025 Severe aortic stenosis [I35.0] 02/26/2025 Coronary artery disease of [place] artery of [place]*03/06/2025 Encounter Status:Closed by [facility]GHA[facility] FLOR on [facility]/08/25 [facility] Telephone (AGCARDPOB ) BRYCE ANN ([id number]) 1940 M Date Time Provider Department 04/02/25 MEGHANA FLOR During your visit today, we recorded the following information about you: Meghana Flor APRN.CNP 04/03/2025 3:30 PM Addendum Please schedule patient for TAVR with Dr. Monae on 04/17/25 at 1115 am - patient to arrive at 0915 AM Please schedule patient for PAT with myself on 04/09/25 at 4 PM (over here at [facility]) - patient to arrive at 3:45 pm Preop blood work to be drawn week of 04/07/25 Please schedule patient for 1 week post op appt 04/23/25 at 2 PM - pt to arrive at 1:45 Please also schedule for 1 month post op echo (this is already ordered, but needs scheuduled), and follow up appt with myself. Meghana Flor APRN.CUSTOM PROTECTION OFFICER I spoke with daughter Roni and she is agreeable to above schedule. Meghana Flor APRN.Ximena Mendez 04/03/2025 4:29 PM Signed Addended by: XIMENA BRYSON on: 04/03/2025 04:29 PM Modules accepted: Orders Allergies As of Date: 04/02/2025 (No Known Allergies) Date Reviewed: 04/01/2025 Reviewed by: Asia Cast MA - Fully Assessed Primary Visit Diagnosis:Nonrheumatic aortic (valve) stenosis [I35.0] Order(s):COMPLETE BLOOD COUNT [SQCBC] Order #: [id number] FUTURE BASIC METABOLIC PANEL [SQBMP] Order #: [id number] FUTURE NT PRO BNP [SQNTBNP] Order #: [id number] FUTURE TYPE AND SCREEN,30 DAY [RUFOHS74] Order #: [id number] FUTURE CONFIRM BLOOD TYPE [SQCONABO] Order #: [id number] FUTURE SURGICAL REQUEST - ELECTIVE (12/2019) [[id number]] Order #: [id number]: 1 Prescriptions as of 04/03/2025 - clopidogrel (PLAVIX) 75 mg tablet Take 1 tablet by mouth once daily. Patient should start on February 27, 2025. - melatonin 3 mg tablet Take 3 tablets by mouth once daily. - gabapentin (NEURONTIN) 300 mg capsule Take 1 capsule by mouth daily at bedtime for 90 days. - rivaroxaban (XARELTO) 15 mg tablet Take 15 mg by mouth daily with dinner. - finasteride (PROSCAR) 5 mg tablet Take 5 mg by mouth once daily. - acetaminophen (TYLENOL) 325 mg tablet Take 2 tablets by mouth every 4 hours as needed. - tamsulosin (FLOMAX) 0.4 mg Take 1 capsule by mouth daily at bedtime. - atorvastatin (LIPITOR) 40 mg tablet Take 1 tablet by mouth daily at bedtime. - sulfaSALAzine EC (AZULFIDINE EN) 500 mg EC tablet Take 1 tablet by mouth three times daily. - folic acid 1 mg tablet Take 1 tablet by mouth once daily. - traZODone (DESYREL) 50 mg tablet Take 1 tablet by mouth daily at bedtime. - amiodarone (PACERONE) 200 mg tablet Take 200 mg by mouth twice daily. - mirtazapine (REMERON) 15 mg tablet Take 15 mg by mouth daily at bedtime. - methotrexate 2.5 mg tablet - Ketorolac Tromethamine (ACLUAR LS) 0.4 % drop Problem List As Of Date 04/02/2025 Noted Resolved Syncope [R55] 08/12/2020 Severe protein-calorie malnutrition (HCC) [E43] 08/13/2020 Valvular heart disease [I38] 02/10/2025 Stable angina [I20.89] 02/25/2025 Paroxysmal atrial fibrillation (HCC) [I48.0] 02/26/2025 Severe aortic stenosis [I35.0] 02/26/2025 Coronary artery disease of [place] artery of [place]*03/06/2025 Encounter Status:Closed by MEGHANA FLOR on 04/03/25 [facility] 04-01-2025 [facility] Office Visit (DAHLIA GOVEA) BRYCE ANN ([id number]) 1940 M Date Time Provider Department 04/01/25 2:00 PM MEGHANA FLOR During your visit today, we recorded the following information about you: Pulse Blood pressure Weight 53/minute 125/68 61.2 kg Asia Cast MA 04/01/2025 2:02 PM Signed CARDIAC REHAB 5 METER WALK TEST SERVICE DATE: 04/01/2025 SERVICE TIME: 200 ASSESSMENT: Patient unable to complete walk A. B. C. SIGNATURE: Asia Cast MA PATIENT NAME: Bryce Ann DATE: April 01, 2025 TIME: 1:54 PM PAGER/CONTACT #: [phone] Meghana Flor APRN.CNP 04/02/2025 3:37 PM Signed INTERVENTIONAL CARDIOLOGY SERVICE Routine Follow-Up PRIMARY CARE PHYSICIAN: Jorge Hilton [address] [place] [id number] BARRATTE OPERATOR: Dr. Nargis Rodriguez Chief Complaint Patient presents with: CARD Follow Up 1 Month: (reassess symtpoms)Valve Clinic- 1 month p/o - 5M Walk,EKG,KCCQ HISTORY OF PRESENT ILLNESS: Mr. 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 Subsequent heart team review recommended to pursue PCI to SEWER DIGGER of LAD prior, with symptom reassessment. He underwent successful planned PCI to SEWER DIGGER mid LAD 02/25/25. Post procedurally in CVICU, noted to have asymptomatic bradycardia 55-60 bpm, dipping into 40s at times (thought to be vaso-vagal response to pain at hematoma site), and mild hematoma at right groin vascular access site. Heart rates and hematoma found to be stable as he continued to recover, and he was discharged to home in stable condition. Today, he presents with his daughter for close monitoring of symptoms post PCI in setting of known severe . He continues to experience significant dyspnea with minimal exertion, such as walking short distances on flat ground. He describes walking from the parking lot to a building as an absolute struggle. He denies chest pain, lightheadedness, dizziness, or syncope. He breathes better when lying flat and does not wake up gasping for air. He denies coughing. He reports chronic fatigue and notes that he has to take short steps when walking. He also experiences chronic lower extremity edema, more pronounced on the right side, which has been present for years. He denies any changes in the edema. He reports chronic cyanosis of the nails, palms of hands, and lips, which has been present since his last visit. He also notes tingling in his thumb and index fingers bilaterally chronically.. He reports chronic pain due to RA, which he rates as 10 plus. He denies any open sores or unhealing wounds. He reports crusty blood in the tissue when blowing his nose but denies active nosebleeds or abnormal bleeding. He mentions a recent senior living, which has alleviated the need to arrive at work early in the morning. He is complaint with his current medication regimen which includes but is not limited to amiodarone, Plavix, Xarelto, and sulfasalazine. Dental clearance obtained, has been seen by [facility] Dr. Tripp, and his case has been previously reviewed at multidisciplinary heart team meeting. Subjective Review of Systems Constitutional: Positive for malaise/fatigue. Negative for chills, diaphoresis and fever. HENT: Positive for nosebleeds. Negative for congestion, hearing loss and tinnitus. Eyes: Negative for blurred vision and photophobia. Respiratory: Positive for shortness of breath. Negative for cough, hemoptysis, sputum production and wheezing. Cardiovascular: Positive for leg swelling. Negative for chest pain, palpitations, orthopnea, claudication and PND. Gastrointestinal: Negative for blood in stool, constipation, diarrhea, heartburn, nausea and vomiting. Genitourinary: Negative for hematuria. Musculoskeletal: Negative for falls and myalgias. Skin: Negative for rash. Neurological: Negative for dizziness, focal weakness and loss of consciousness. Endo/Heme/Allergies: Does not bruise/bleed easily. Psychiatric/Behavioral: Negative for depression and memory loss. The patient is not nervous/anxious. PAST MEDICAL HISTORY Diagnosis Date Atrial fibrillation (HCC) Cardiomyopathy, ischemic Chronic systolic heart failure (HCC) Coronary artery disease Nonrheumatic aortic valve stenosis History reviewed. No pertinent surgical history. History reviewed. No pertinent family history. SOCIAL HISTORY[1] ALLERGIES No Known Allergies Medications: (more content not included)... Normal [facility] Cardiology Visit Reporton Cardiology Visit Report [facility] [address] [place] [address] OFFICE VISIT Date of Service: 03/19/25 MR#: [id number] Acct: [id number] Name: BRYCE ANN Rep #: [id number] : 1940 Provider: MARTIN perez Age/Sex: 84/M Location: [facility] Status: Signed HPI HPI History of Present Illness Details: This is a 84-year-old gentleman that presents here today for a cardiovascular outpatient follow-up of a diagnosis of CAD, non-STEMI, status post OM2 PCI, paroxysmal SVT/atrial fibrillation, and aortic valve stenosis. On August 10, 2020 he was admitted to [facility]. He was admitted for an acute non-STEMI. He was on Eliquis and this was held for his heart catheterization on August 06, 2020. He did undergo a heart catheterization and stenting to his OM 2. They were unable to stent his LAD that was noted to have 100% occlusion. During that evaluation he was noted to be hypotensive and was noted to be in SVT. He did not convert with 12 mg of adenosine. He was transferred to the intensive care unit. He did receive IV Cardizem. He did convert back to sinus rhythm. He was started on oral amiodarone. He was transferred to [facility] for evaluation of his LAD. He was evaluated by cardiology and it was recommended that he undergo a Holter monitor to assess for conduction deficits. It was not felt that he was a surgical candidate for single-vessel bypass due to his calcified LAD system. He was discharged with medical management and a 14-day monitor. He was able to wear this for half the time. He was seen at [facility] in September 2022 for GI bleed. He underwent an EGD that showed no active bleeding. He was noted to be hypoxic with ambulation prior to discharge. He refused oxygen therapy. Heart catheterization January 2025 showed LAD with chronic total occlusion in the mid vessel with bridging collaterals and right to left collaterals. He was noted to have mild diffuse LCx disease with patent stent OM1 and mild diffuse RCA disease. Echocardiogram with [facility] on 02/12/2025 showed LV function 64???5% and severe aortic valve stenosis with mean aortic valve gradient 34 mmHg, aortic valve area 0.61 cm???, peak aortic valve gradient 58 mm minute, and dimensionless valve index of 0.22. He was seen with [facility] team in January 2025 for recommendation of aortic valve replacement on account of low flow low gradient severe aortic valve stenosis. He has appointment on 04/01 with [facility] for further valve discussion. He denies chest, arm, jaw, or neck discomfort. He denies palpitations. He acknowledges bilateral lower extremity edema. He denies claudication. He acknowledges shortness of breath at rest and shortness breath with activity. He denies orthopnea, cough, or PND. He denies lightheadedness, dizziness, near-syncope, or syncope. He acknowledges fatigue. Intake Vital Signs 01/10/25 11:54 03/14/25 15:46 03/19/25 11:21 Height 5 ft 5 ft 5 ft Weight: 140 lb 134 lb BMI 27.3 26.2 BP 117/84 H 133/61 H Blood Pressure Location Lt brachial Lt brachial Position Sitting Sitting Respiration 18 Pulse 101 H 60 Pulse Source Monitor Monitor Pulse Oximetry (%) 96 92 Oxygen Delivery Method room air Intake Visit Reasons: 6 M FU Hostel Manager Required: No Is patient in pain?: No Allergies No Known Allergies Allergy (Verified 03/19/25 15:08) Medications ???Medication ???Instructions ???Recorded ???Confirmed ???Type tamsulosin 0.4 mg capsule 0.4 mg PO DAILY@1800 Retention 03/19/25 History finasteride 1 mg tablet 5 mg PO DAILY prostate 12/30/20 History golimumab 12.5 mg/mL intravenous 12.5 mg IV .[id number] injection 08/1803/19/25 History solution (Simponi ARIA) gabapentin 300 mg capsule 300 mg PO TID PRN PRN NERVE PAIN 0 10/20/22 03/19/25 History trazodone 100 mg tablet 100 mg PO QHS Check with primary 0 11/14/22 03/19/25 History doctor acetaminophen 500 mg tablet 1,000 mg (2 x 500 mg) PO Q8 #0 tab s 01/24/23 03/19/25 Rx denosumab 60 mg/mL subcutaneous 60 mg subcut [id number] #1 mL 03/19/25 Rx syringe (Prolia) methotrexate sodium 2.5 mg tablet 20 mg PO QWEEK 06/01/23 03/19/25 History sulfasalazine 500 mg 0.5 g PO Q12H 06/01/23 03/19/25 Hi story tablet,delayed release ascorbic acid (vitamin C) 1,000 mg 1,000 mg PO QDAY 10/23/24 History capsule hydrocodone 7.5 mg-acetaminophen 1 tab PO BID pain 10/23/24 5 History 325 mg tablet mecobalamin (vitamin B12) 2,500 2,500 mcg PO DAILY 10/23/24 History mcg chewable tablet mirtazapine 15 mg tablet 7.5 mg PO QHS 10/23/24 03/19/25 Hi story oxybutynin chloride 10 mg 10 mg PO QDAY 10/23/24 03/19/25 Hi story tablet,extended release 24 hr rivaroxaban (more content not included)... Normal [facility] Endocrinology Visit Reporton 03-14-2025 Endocrinology Visit Report [facility] [address] [place] [address] OFFICE VISIT Date of Service: 03/14/25 MR#: [id number] Acct: [id number] Name: BRYCE ANN Rep #: [id number] : 1940 Provider: Avery Carter Age/Sex: 84/M Location[facility] Status: Signed Intake Vital Signs 03/08/24 15:18 03/12/25 15:20 03/14/25 15:46 Height 5 ft 1 in 5 ft 5 ft Weight: 140 lb BMI 27.3 BP 117/84 H Blood Pressure Location Lt brachial Position Sitting Pulse 101 H Pulse Source Monitor Pulse Oximetry (%) 96 Oxygen Delivery Method room air Intake Visit Reasons: 1 Y FU Chief Complaint: Osteoporosis Is patient in pain?: Yes Allergies No Known Allergies Allergy (Verified 03/14/25 15:48) Medications ???Medication ???Instructions ???Recorded ???Confirmed ???Type tamsulosin 0.4 mg capsule 0.4 mg PO DAILY@1800 Retention 03/14/25 History finasteride 1 mg tablet 5 mg PO DAILY prostate 12/30/20 History golimumab 12.5 mg/mL intravenous 12.5 mg IV .[id number] injection 08/1803/14/25 History solution (Simponi ARIA) gabapentin 300 mg capsule 300 mg PO TID PRN PRN NERVE PAIN 0 10/20/22 03/14/25 History trazodone 100 mg tablet 100 mg PO QHS Check with primary 0 11/14/22 03/14/25 History doctor acetaminophen 500 mg tablet 1,000 mg (2 x 500 mg) PO Q8 #0 tab s 01/24/23 03/14/25 Rx denosumab 60 mg/mL subcutaneous 60 mg subcut [id number] #1 mL 03/14/25 Rx syringe (Prolia) methotrexate sodium 2.5 mg tablet 20 mg PO QWEEK 06/01/23 03/14/25 History sulfasalazine 500 mg 0.5 g PO Q12H 06/01/23 03/14/25 Hi [email or web address] tablet,delayed release ascorbic acid (vitamin C) 1,000 mg 1,000 mg PO QDAY 10/23/24 History capsule furosemide 40 mg tablet 40 mg PO QAM #90 tabs 10/23/24 Rx hydrocodone 7.5 mg-acetaminophen 1 tab PO BID pain 10/23/24 5 History 325 mg tablet mecobalamin (vitamin B12) 2,500 2,500 mcg PO DAILY 10/23/24 History mcg chewable tablet mirtazapine 15 mg tablet 7.5 mg PO QHS 10/23/24 03/14/25 Hi story oxybutynin chloride 10 mg 10 mg PO QDAY 10/23/24 03/14/25 Hi story tablet,extended release 24 hr rivaroxaban 15 mg tablet (Xarelto) 15 mg PO QDAY 90 days #90 tabs 0 10/23/24 03/14/25 Rx spironolactone 25 mg tablet 25 mg PO DAILY water pill #90 tabs 10/23/24 03/14/25 Rx turmeric root extract 500 mg 500 mg PO QDAY 10/23/24 03/14/25 H istory capsule atorvastatin 40 mg tablet (Lipitor) 40 mg PO QHS Cholesterol #90 ta bs 12/09/24 03/14/25 Rx polysaccharide iron complex 150 mg 150 mg PO QDAY 90 days #90 caps 12/13/24 03/14/25 Rx iron capsule (Ferrex) amiodarone 200 mg tablet 200 mg PO DAILY heart rate #90 tab s 12/17/24 03/14/25 Rx Have you fallen in the past year?: Yes [facility] History Severe aortic stenosis Bruising Walker as ambulation aid Bladder disease Prostate disease Shortness of breath on exertion Leg cramps History of pain when walking History of CHF (congestive heart failure) History of atrial fibrillation History of echocardiogram Cardiology follow-up encounter Right rotator cuff tear arthropathy 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 Secondary adrenal insufficiency Vitamin D deficiency Chronic edema Wears glasses Former smoker History of stress test History of heart attack Anemia Coronary artery disease Atherosclerotic heart disease of [place] coronary artery without angina pectoris BPH (benign prostatic hyperplasia) GERD (gastroesophageal reflux disease) Lumbar spinal stenosis Atrial fibrillation PAT (paroxysmal atrial tachycardia) SVT (supraventricular tachycardia) Rheumatoid arthritis Surgical History History of cardiac catheterization History of coronary artery stent placement Hx of colectomy Hx of transurethral resection of prostate Hx of laminectomy History of lumbar surgery History of coronary artery stent placement (08/06/20) H/O colonoscopy S/P left colectomy S/P appendectomy S/P hemorrhoidectomy S/P vasectomy S/P laparoscopic cholecystectomy H/O umbilical hernia repair S/P inguinal hernia repair S/P rotator cuff repair S/P cataract surgery Family History Father CVA (cerebral vascular accident) Brother CAD (coronary artery disease) CABG X 3 Mother CVA (cerebral vascular accident) Grandfather Cancer prostate Social History household members: none housing: house current occupational status: retired Smoking Status: Forme (more content not included)... Normal [facility] Bilirubin directOrdered By: Dayana Plasencia on 03-03-2025 Bilirubin.direct [Mass/Vol] 0.42 mg/dL High 0.00-0.30 [facility] Bilirubin, totalOrdered By: Dayana Plasencia on 03-03-2025 Bilirubin [Mass/Vol] 0.82 mg/dL 0.00-1.30 [facility] Liver Profileon 03-03-2025 Albumin [Mass/Vol] 3.9 g/dL Normal 3.4-4.8 [facility] Comment on above: Performed By: #### L 100.0100, L500.2500 #### [facility] [address] [place], [address] ALK PHOS 65 U/L Normal 40-129 [facility] Comment on above: Performed By: #### L 100.0100, L500.2500 #### [facility] [address] [place], [address] ALT [Catalytic activity/Vol] 18 U/L Normal <=46 [facility] Comment on above: Performed By: #### L 100.0100, L500.2500 #### [facility] [address] [place], [address] AST [Catalytic activity/Vol] 25 U/L Normal <=37 [facility] Comment on above: Performed By: #### L 100.0100, L500.2500 #### [facility] [address] [place], [address] Bilirubin [Mass/Vol] 0.82 mg/dL Normal 0.00-1.30 [facility] Comment on above: Performed By: #### L 100.0100, L500.2500 #### [facility] [address] [place], [address] Bilirubin.direct [Mass/Vol] 0.42 mg/dL High 0.00-0.30 [facility] Comment on above: Performed By: #### L 100.0100, L500.2500 #### [facility] [address] [place], [address] Globulin (S) [Mass/Vol] 2.5 g/dL Normal 2.2-4.2 [facility] Comment on above: Performed By: #### L 100.0100, L500.2500 #### [facility] [address] [place], [address] T PROT 6.4 g/dL Normal 5.9-8.4 [facility] Comment on above: Performed By: #### L 100.0100, L500.2500 #### [facility] [address] [place], [address] No Panel InformationOrdered By: Dayana Plasencia on 03-03-2025 25 U/L <38 [facility] Serum globulin measurementOr dered By: Dayana Plasencia on 03-03-2025 Globulin (S) [Mass/Vol] 2.5 g/dL 2.2-4.2 [facility] Serum or plasma alanine alamo otransferase (ALT) measurementOrdered By: Dayana Plasencia on 03-03-2025 ALT [Catalytic activity/Vol] 18 U/L <47 [facility] Serum or plasma albumin lenka urement (mass/volume)Ordered By: Dayana Plasencia on 03-03-2025 Albumin [Mass/Vol] 3.9 g/dL 3.4-4.8 [facility] Serum or plasma alkaline yazan sphatase measurementOrdered By: Dayana Plasencia on 03-03-2025 ALP [Catalytic activity/Vol] 65 U/L 40-129 [facility] Total proteinOrdered By: Ari Plasencia on 03-03-2025 Protein [Mass/Vol] 6.4 g/dL 5.9-8.4 [facility] CNPNon 02-27-2025 CNPN Telephone ([facility]) MARISSABRYCE B ([id number]) 1940 M Date Time Provider Department 02/27/25 MEGHANA DEAL [facility] During your visit today, we recorded the following information about you: Meghana Deal 02/27/2025 10:13 AM Signed Left message for patient regarding Cardiac Rehab. Encouraged patient to call and schedule orientation at [phone] option 1. Meghana Deal 03/03/2025 9:58 AM Signed Letter sent requesting response to Cardiac Rehab by 03/17/2025 Allergies As of Date: 02/27/2025 (No Known Allergies) Date Reviewed: 02/26/2025 Reviewed by: Elicia Aguilar, RN - Fully Assessed Reason for Visit: Cardiac Rehab [3558] Cmt: 2nd attempt - letter Prescriptions as of 03/03/2025 - clopidogrel (PLAVIX) 75 mg tablet Take 1 tablet by mouth once daily. Patient should start on February 27, 2025. - melatonin 3 mg tablet Take 3 tablets by mouth once daily. - gabapentin (NEURONTIN) 300 mg capsule Take 1 capsule by mouth daily at bedtime for 90 days. - rivaroxaban (XARELTO) 15 mg tablet Take 15 mg by mouth daily with dinner. - bacitracin 500 unit/gram ointment APPLY TO THE AFFECTED AREA(S) DAILY - finasteride (PROSCAR) 5 mg tablet Take 5 mg by mouth once daily. - acetaminophen (TYLENOL) 325 mg tablet Take 2 tablets by mouth every 4 hours as needed. - tamsulosin (FLOMAX) 0.4 mg Take 1 capsule by mouth daily at bedtime. - atorvastatin (LIPITOR) 40 mg tablet Take 1 tablet by mouth daily at bedtime. - sulfaSALAzine EC (AZULFIDINE EN) 500 mg EC tablet Take 1 tablet by mouth three times daily. - folic acid 1 mg tablet Take 1 tablet by mouth once daily. - traZODone (DESYREL) 50 mg tablet Take 1 tablet by mouth daily at bedtime. - amiodarone (PACERONE) 200 mg tablet Take 200 mg by mouth twice daily. - mirtazapine (REMERON) 15 mg tablet Take 15 mg by mouth daily at bedtime. - methotrexate 2.5 mg tablet - Ketorolac Tromethamine (ACLUAR LS) 0.4 % drop Problem List As Of Date 02/27/2025 Noted Resolved Syncope [R55] 08/12/2020 Severe protein-calorie malnutrition (HCC) [E43] 08/13/2020 Valvular heart disease [I38] 02/10/2025 Stable angina [I20.89] 02/25/2025 Paroxysmal atrial fibrillation (HCC) [I48.0] 02/26/2025 Severe aortic stenosis [I35.0] 02/26/2025 Letter Text Encounter Status:Closed by MEGHANA DEAL on 02/27/25 Normal [facility] Basic metabolic 2000 panelon 02-26-2025 Anion gap [Moles/Vol] 12 mmol/L Normal 8-15 [facility] Comment on above: Order Comment: Speci men Type: BLOOD SPECIMENOrdering Facility: [facility] Address: [address] [place] [address] Performed By: #### 2 4321-2 ####[facility]ORY[facility]IA [id number] [place] [address] [place] Calcium [Mass/Vol] 8.4 mg/dL Low 8.5-10.2 [facility] Comment on above: Order Comment: Speci men Type: BLOOD SPECIMENOrdering Facility: [facility] Address: [address] [place] [address] Performed By: #### 2 4321-2 ####[facility]ORYCLIA [id number] [place] [address] [place] Chloride [Moles/Vol] 98 mmol/L Normal 98-107 [facility] Comment on above: Order Comment: Speci men Type: BLOOD SPECIMENOrdering Facility: [facility] Address: [address] [place] [address] Performed By: #### 2 4321-2 ####[facility]ATORYCLIA [id number] [address] STATES OF [facility] CO2 [Moles/Vol] 25 mmol/L Normal 22-30 [facility] Comment on above: Order Comment: Speci men Type: BLOOD SPECIMENOrdering Facility: [facility] Address: [address] [place] [address] Performed By: #### 2 4321-2 ####[facility]ATORYCLIA [id number] [address] STATES OF [facility] Creatinine [Mass/Vol] 0.88 mg/dL Normal 0.73-1.22 [facility] Comment on above: Order Comment: Speci men Type: BLOOD SPECIMENOrdering Facility: [facility] Address: [address] [place] [address] Performed By: #### 2 4321-2 ####[facility]PITALIA [id number] [address] eGFRcr SerPlBld CKD-EPI 2020 86 mL/min/1.73m??? Normal >=60 [facility] Comment on above: Order Comment: Speci men Type: BLOOD SPECIMENOrdering Facility: [facility] Address: [address] [place] [address] Result Comment: Hortensia mated Glomerular Filtration Rate (eGFR) is calculated using the 2020 CKD-EPI creatinine equation. This equation utilizes serum creatinine, sex, and age as parameters. The creatinine assay has traceable calibration to isotope dilution-mass spectrometry. Refer to KDIGO guidelines for clinical interpretation. In patients with unstable renal function, e.g. those with acute kidney injury, the eGFR may not accurately reflect actual GFR. Performed By: #### 2 4321-2 ####[facility]ATORYCLIA [id number] [address] STATES [facility] Glucose [Mass/Vol] 88 mg/dL Normal 74-99 [facility] Comment on above: Order Comment: Speci men Type: BLOOD SPECIMENOrdering Facility: [facility] Address: [address] [place] [address] Result Comment: The [place] Diabetes Association (ADA) provides guidance for cutoff values for fasting glucose and random glucose. The ADA defines fasting as no caloric intake for at least 8 hours. Fasting plasma glucose results between 100 to 125 mg/dL indicate increased risk for diabetes (prediabetes). Fasting plasma glucose results greater than or equal to 126 mg/dL meet the criteria for diagnosis of diabetes. In the absence of unequivocal hyperglycemia, results should be confirmed by repeat testing. In a patient with classic symptoms of hyperglycemia or hyperglycemic crisis, random plasma glucose results greater than or equal to 200 mg/dL meet the criteria for diagnosis of diabetes. Reference: Standards of Medical Care in Diabetes 2016, [place] Diabetes Association. Diabetes Care. 2016.39(Suppl 1). Performed By: #### 2 4321-2 ####[facility]ORYCLIA [id number] [address] [place] Potassium [Moles/Vol] 3.5 mmol/L Low 3.7-5.1 [facility] Comment on above: Order Comment: Speci men Type: BLOOD SPECIMENOrdering Facility: [facility] Address: [address] [place] [address] Performed By: #### 2 4321-2 ####[facility]ATORYCLIA [id number] [address] Sodium [Moles/Vol] 135 mmol/L Low 136-144 [facility] Comment on above: Order Comment: Speci men Type: BLOOD SPECIMENOrdering Facility: [facility] Address: [address] [place] [address] Performed By: #### 2 4321-2 ####[facility]ORYCLIA [id number] [address] STATES [facility] Urea nitrogen [Mass/Vol] 15 mg/dL Normal 9-24 [facility] Comment on above: Order Comment: Speci men Type: BLOOD SPECIMENOrdering Facility: [facility] Address: [address] [place] [address] Performed By: #### 2 4321-2 ####[facility]ORYCLIA [id number] [address] [place] CBC panel Auto (Bld)on 02-26 Erythrocyte distribution width (RBC) [Ratio] 14.9 % Normal 11.5-15.0 [facility] Comment on above: Order Comment: Speci men Type: BLOOD SPECIMENOrdering Facility: [facility] Address: [address] [place] [address] Performed By: #### 5 8410-2 ####[facility]ORYCLIA [id number] [address] Hematocrit (Bld) [Volume fraction] 30.0 % Low 39.0-51.0 [facility] Comment on above: Order Comment: Speci men Type: BLOOD SPECIMENOrdering Facility: [facility] Address: [address] [place] [address] Performed By: #### 5 8410-2 ####[facility]ORYCLIA [id number] [address] Hemoglobin (Bld) [Mass/Vol] 10.2 g/dL Low 13.0-17.0 [facility] Comment on above: Order Comment: Speci men Type: BLOOD SPECIMENOrdering Facility: [facility] Address: [address] [place] [address] Performed By: #### 5 8410-2 ####[facility]ORYCLIA [id number] [address] MCH (RBC) [Entitic mass] 33.7 pg Normal 26.0-34.0 [facility] Comment on above: Order Comment: Speci men Type: BLOOD SPECIMENOrdering Facility: [facility] Address: [address] [place] [address] Performed By: #### 5 8410-2 ####[facility]ATORYCLIA [id number] [address] STATES [facility] MCHC (RBC) [Mass/Vol] 34.0 g/dL Normal 30.5-36.0 [facility] Comment on above: Order Comment: Speci men Type: BLOOD SPECIMENOrdering Facility: [facility] Address: [address] [place] [address] Performed By: #### 5 8410-2 ####[facility]ORYCLIA [id number] [address] [place] MCV (RBC) [Entitic vol] 99.0 fL Normal 80.0-100.0 [facility] Comment on above: Order Comment: Speci men Type: BLOOD SPECIMENOrdering Facility: [facility] Address: [address] [place] [address] Performed By: #### 5 8410-2 ####[facility]ORYCLIA [id number] [address] [place] Nucleated RBC (Bld) [#/Vol] 10*3/uL Normal <0.01 [facility] Comment on above: Order Comment: Speci men Type: BLOOD SPECIMENOrdering Facility: [facility] Address: [address] [place] [address] Performed By: #### 5 8410-2 ####[facility]ATORYCLIA [id number] [address] [place] Platelet mean volume (Bld) [Entitic vol] 9.7 fL Normal 9.0-12.7 [facility] Comment on above: Order Comment: Speci men Type: BLOOD SPECIMENOrdering Facility: [facility] Address: [address] [place] [address] Performed By: #### 5 8410-2 ####[facility]ORYCLIA [id number] [address] STATES [facility] Platelets (Bld) [#/Vol] 187 10*3/uL Normal 150-400 [facility] Comment on above: Order Comment: Speci men Type: BLOOD SPECIMENOrdering Facility: [facility] Address: [address] [place] [address] Performed By: #### 5 8410-2 ####[facility]ATORYCLIA [id number] [address] [place] RBC (Bld) [#/Vol] 3.03 10*6/uL Low 4.20-6.00 [facility] Comment on above: Order Comment: Speci men Type: BLOOD SPECIMENOrdering Facility: [facility] Address: [address] [place] [address] Performed By: #### 5 8410-2 ####[facility]ATORYCLIA [id number] [place] [address] [place] WBC (Bld) [#/Vol] 6.67 10*3/uL Normal 3.70-11.00 [facility] Comment on above: Order Comment: Speci men Type: BLOOD SPECIMENOrdering Facility: [facility] Address: [address] [place] [address] Performed By: #### 5 8410-2 ####[facility]ORYCLIA [id number] [address] [place] Lactate (Bld) [Moles/Vol]on 02-26-2025 Lactate [Moles/Vol] 1.8 mmol/L Normal 0.5-2.2 [facility] Comment on above: Order Comment: Speci men Type: BLOOD SPECIMENOrdering Facility: [facility] Address: [address] [place] [address] Performed By: #### 3 2693-4 ####[facility]ORYCLIA [id number] [address] STATES OF [facility] Lactate [Moles/Vol] 1.7 mmol/L Normal 0.5-2.2 [facility] Comment on above: Order Comment: Speci men Type: BLOOD SPECIMENOrdering Facility: [facility] Address: [address] [place] [address] Performed By: #### 3 2693-4 ####[facility]ATORYCLIA [id number] [place] [id number] [place] XR CHEST 1V FRONTALon 2024 XR CHEST 1V FRONTAL * * *Final Report* * * DATE OF EXAM: Feb 26 2025 11:55AM AKX [id number] - XR CHEST 1V FRONTAL / PROCEDURE REASON: Shortness of breath * * * * Physician Interpretation * * * * EXAMINATION: CHEST RADIOGRAPH (SINGLE VIEW AP OR PA) CLINICAL HISTORY: Shortness of breath MQ: XC1_5 Comparison: Same day RESULT: Lines, tubes, and devices: None. Lungs and pleura: Less prominent lucent line now just in the right lower lung which is favored to represent a skinfold rather than a pneumothorax. There are lung markings on both sides of this line suggesting its artifactual. No new focal consolidation or pleural effusion. Bibasilar atelectasis. Cardiomediastinal silhouette: Normal cardiomediastinal silhouette. Other: No bony abnormalities. IMPRESSION: Less prominent lucent line just in the right lower lung which is favored to represent a skinfold rather than a pneumothorax. No new acute findings. Java Programming Professor: FELIX Transcribe Date/Time: Feb 26 2025 12:40P Dictated by : BAHMAN PLASENCIA MD This examination was interpreted and the report reviewed and electronically signed by: BAHMAN PLASENCIA MD on Feb 26 2025 12:43PM EST [id number] Normal [facility] XR CHEST 1V FRONTAL * * *Final Report* * * DATE OF EXAM: Feb 26 2025 7:15AM AKX 5290 - XR CHEST 1V FRONTAL / PROCEDURE REASON: Shortness of breath * * * * Physician Interpretation * * * * EXAMINATION: CHEST RADIOGRAPH (SINGLE VIEW AP OR PA) CLINICAL HISTORY: Shortness of breath MQ: XC1_5 Comparison: 02/25/2025 RESULT: Lines, tubes, and devices: None. Lungs and pleura: Lucent line along the lateral and upper right lung, new from prior. No focal consolidation. Bibasilar atelectasis. No sizable pleural effusion. Cardiomediastinal silhouette: Normal cardiomediastinal silhouette. Other: Degenerative changes. IMPRESSION: New lucent line along the right lateral and upper lung which could be artifactual and due to skinfold versus a pneumothorax. Recommend repeat chest radiograph with PA and lateral views if patient is able to tolerate. Java Programming Professor: FELIX Transcribe Date/Time: Feb 26 2025 7:50A Dictated by : BAHMAN PLASENCIA MD This examination was interpreted and the report reviewed and electronically signed by: BAHMAN PLASENCIA MD on Feb 26 2025 7:52AM EST [id number] [facility] ALLIED HEALTHon 02-25-2025 ALLIED HEALTH HNO ID: [id number] Author: HENNA DELATORRE Exercise Physiologist Service: Cardiac Rehab Author Type: Photocopying Equipment Repairer Type: Allied Health Filed: 02/25/2025 12:37 Note Text: CARDIAC REHABILITATION PATIENT EDUCATION PROGRESS NOTE Name: Bryce Ann Date of Service: 02/25/2025 Time of Service: 1226 ASSESSMENT: Risk Factors Identified: Age Gender Reformed Smoker: Year Quit: unavailable. RECOMMENDATIONS: Patient interested in Phase II Outpatient Cardiac Rehab: Yes. Facility Preferred: [facility] DIAGNOSIS: Percutaneous Cardiac Intervention: GAGE PCI Teaching Points: -Personal Modifiable Risk Factor Identification -Activity/Physical Exercise Recommendations -Outpatient Cardiac Rehabilitation READINESS TO LEARN: Cognitive Ability: Alert and Oriented Motivation to Learn: Interested Family Support: High - Very involved in pt care Instruction Provided To: Patient and Daughter Patient Learns Best By: Individual Instruction, Written Instruction - Hand-outs, and Verbal Instruction Factors Affecting Learning: None Physical Limitations Affecting Learning: None LEARNING RESPONSE: Method Of Instruction: Individual instruction Written instruction/Handouts Verbal instruction Patient/Family Response: Verbalizes understanding of: Cardiac Rehab Follow-up Plan: No further educational needs identified at this time. Instructional Aids Used: Cardiac Rehabilitation Brochure [facility] Cardiac [facility] Programs Signature: Geno Castro Physiologist Pager: [phone] Date: February 25, 2025 Time: 12:35 PM [facility] BRIEF OP NOTon 02-25-2025 BRIEF OP NOT HNO ID: [id number] Author: FELIBERTO ROSENTHAL MD Service: Cardiovascular Medicine Author Type: Physician Type: Brief Op Note Filed: 02/25/2025 09:50 Note Text: Brief Cath note: Indications: Planned PCI of the SEWER DIGGER of the mid LAD Access: 7Fr. Right femoral artery, 5Fr. Right femoral vein Closure: Angioseal Findings: Left main mild disease LAD SEWER DIGGER mid vessel LCx Mild disease, patent stent in OM1 RCA not imaged today LVEDP: valve not crossed Successful IVUS guided PCI of the SEWER DIGGER of the mid LAD with a 3.0x48mm Synergy GAGE, post dilated to 4.0.., with rastafarian of blood flow, no residual stenosis. No complications. Recommend: ASA/BRilinta Continue other GDMT Feliberto Monae MD Director Religious Education of Internal Medicine [facility] Section of Interventional Cardiology Production Sound Mixer of Structural Heart Disease [address], [address] [place] [id number] Facsimile: [phone] Email: [email or web address] Normal [facility] CARD CATH INTERVENTon 2024 CARD CATH INTERVENT Site Id: [facility] Lab #: DEFAULT Study Date: 02/25/2025 Start Time: End Time: Name Duty Feliberto Monae MD PROC MD 1 Андрей Swann PROC SCRUB 1 Scar Womack RN PROC CIRC 1 Ana Laura Blunt RN PROC CIRC 2 Alla Fernandez RN PROC RECORD 1 + + PATIENT INFORMATION + + Name: [facility] : 1940 Age: 84 years Gender: Height: 60 in / 152 cm Weight: 138.89 lb / 63.00 kg BMI: 27.27 kg/m BSA: 1.60 m + -+ CLINICAL HISTORY/INDICATIONS + -+ Procedural Status: Elective CAD Presentation: Symptoms Likely to be Ischemic Angina Classification (within 2 weeks): CCS III No Heart Failure Clinical History: Patient presents for SEWER DIGGER PCI of the LAD + + DIAGNOSTIC FINDINGS + + Coronary Anatomy: Right Dominant Injection Site(s): Coronary Artery LMT: _ The LMT is normal. LAD: _ The proximal LAD - mild diffuse disease. _ The mid LAD - SEWER DIGGER. LCX: _ The Circumflex has mild diffuse disease. _ The 2nd obtuse marginal circumflex - Widely patent stent. RAMUS: _ Ramus Status: Not Applicable. RCA: _ RCA Status: Not Applicable. + + IMPRESSION/PLAN + + Impression:Severe [place] single-vessel coronary artery disease involving a chronic total occlusion of the mid LAD. Recommended Treatment: Medical Therapy and Valve repair / replacement. Plan: SEWER DIGGER PCI of the LAD + + PCI SUMMARY + + Procedures Performed: Procedural Details: Procedure Summary: Successful IVUS guided PCI of the SEWER DIGGER of the mid LAD with a 3.0x48mm Synergy GAGE, post dilated to 4.0.., with rastafarian of blood flow, no residual stenosis. Procedure Narrative: Lesion 1: LAD MID Guide 1: 7FR EBU 3.75. + +--------- -------+--------+------+ Type of Treatment Name of Device Diameter Length + +--------- -------+--------+------+ Pre-Dilation Takeru Balloon 1.50 20 + +--------- -------+--------+------+ 2.00 20 + +--------- -------+--------+------+ NC Emerge RX 2.50 20 + +--------- -------+--------+------+ Stent SYNERGY Stent RX 3.00 48 + +--------- -------+--------+------+ Post-Dilation NC Emerge RX 3.00 20 + +--------- -------+--------+------+ 3.50 20 + +--------- -------+--------+------+ 4.00 15 + +--------- -------+--------+------+ +----+ PLAN +----+ Aspirin 81mg/day indefinitely, Ticagrelor 90mg BID for at least one year, Continued medical therapy, Aggressive risk factor modification, Cardiac rehabilitation and Transferred to cardiac stepdown in stable condition Disposition: ICU + + HEMODYNAMICS - XPER + + + +------+--- --+-------+------+------+--- ---+ Measurement Name Sys Jocelin End Jocelin Mean A Wave V Wave + +------+--- --+-------+------+------+--- ---+ AO 145.00 58.00 93.00 + +------+--- --+-------+------+------+--- ---+ AO 149.00 59.00 94.00 + +------+--- --+-------+------+------+--- ---+ AO 146.00 59.00 94.00 + +------+--- --+-------+------+------+--- ---+ AO 154.00 65.00 101.00 + +------+--- --+-------+------+------+--- ---+ AO 150.00 66.00 101.00 + +------+--- --+-------+------+------+--- ---+ AO 102.00 49.00 69.00 + +------+--- --+-------+------+------+--- ---+ AO 95.00 44.00 68.00 + +------+--- --+-------+------+------+--- ---+ AO 97.00 46.00 65.00 + +------+--- --+-------+------+------+--- ---+ AO 71.00 36.00 50.00 + +------+--- --+-------+------+------+--- ---+ AO 120.00 54.00 79.00 + +------+--- --+-------+------+------+--- ---+ AO 138.00 61.00 91.00 + +------+--- --+-------+------+------+--- ---+ AO 107.00 54.00 75.00 + +------+--- --+-------+------+------+--- ---+ AO 107.00 51.00 72.00 + +------+--- --+-------+------+------+--- ---+ AO 89.00 43.00 59.00 + +------+--- --+-------+------+------+--- ---+ Oximetry: + +------ -+ +--+---+----- + Time Site O2 Saturation O2 PO2 HB + +------ -+ +--+---+----- + 02/10/2025 9:36:55 AM SYS ART + +------ -+ +--+---+----- + 02/10/2025 9:36:55 AM SYS FRANCES + +------ -+ +--+---+----- + 02/10/2025 9:36:55 AM PUL ART + +------ -+- (more content not included)... Normal [facility] CBC panel Auto (Bld)on 02-25 Erythrocyte distribution width (RBC) [Ratio] 14.6 % Normal 11.5-15.0 [facility] Comment on above: Order Comment: Angel carrasquillo Type: BLOOD SPECIMENOrdering Facility: [facility] Address: [address] [place] [address] Performed By: #### 5 8410-2 ####[facility]ATORYCLIA [id number] [place] [address] [place] Hematocrit (Bld) [Volume fraction] 28.8 % Low 39.0-51.0 [facility] Comment on above: Order Comment: Angel carrasquillo Type: BLOOD SPECIMENOrdering Facility: [facility] Address: [address] [place] [address] Performed By: #### 5 8410-2 ####[facility]ATORYCLIA [id number] [address] Hemoglobin (Bld) [Mass/Vol] 10.0 g/dL Low 13.0-17.0 [facility] Comment on above: Order Comment: Speci men Type: BLOOD SPECIMENOrdering Facility: [facility] Address: [address] [place] [address] Performed By: #### 5 8410-2 ####[facility]ORYCLIA [id number] [address] MCH (RBC) [Entitic mass] 33.9 pg Normal 26.0-34.0 [facility] Comment on above: Order Comment: Speci men Type: BLOOD SPECIMENOrdering Facility: [facility] Address: [address] [place] [address] Performed By: #### 5 8410-2 ####[facility]ATORYCLIA [id number] [address] MCHC (RBC) [Mass/Vol] 34.7 g/dL Normal 30.5-36.0 [facility] Comment on above: Order Comment: Speci men Type: BLOOD SPECIMENOrdering Facility: [facility] Address: [address] [place] [address] Performed By: #### 5 8410-2 ####[facility]ATORYCLIA [id number] [address] MCV (RBC) [Entitic vol] 97.6 fL Normal 80.0-100.0 [facility] Comment on above: Order Comment: Speci men Type: BLOOD SPECIMENOrdering Facility: [facility] Address: [address] [place] [address] Performed By: #### 5 8410-2 ####[facility]ORYCLIA [id number] [address] Nucleated RBC (Bld) [#/Vol] 10*3/uL Normal <0.01 [facility] Comment on above: Order Comment: Speci men Type: BLOOD SPECIMENOrdering Facility: [facility] Address: [address] [place] [address] Performed By: #### 5 8410-2 ####[facility]ORYCLIA [id number] [address] Platelet mean volume (Bld) [Entitic vol] 9.3 fL Normal 9.0-12.7 [facility] Comment on above: Order Comment: Speci men Type: BLOOD SPECIMENOrdering Facility: [facility] Address: [address] [place] [address] Performed By: #### 5 8410-2 ####[facility]ORYCLIA [id number] [address] [place] Platelets (Bld) [#/Vol] 170 10*3/uL Normal 150-400 [facility] Comment on above: Order Comment: Speci men Type: BLOOD SPECIMENOrdering Facility: [facility] Address: [address] [place] [address] Performed By: #### 5 8410-2 ####[facility]ATORYCLIA [id number] [address] [place] RBC (Bld) [#/Vol] 2.95 10*6/uL Low 4.20-6.00 [facility] Comment on above: Order Comment: Speci men Type: BLOOD SPECIMENOrdering Facility: [facility] Address: [address] [place] [address] Performed By: #### 5 8410-2 ####[facility]ATORYCLIA [id number] [place] [address] [place] WBC (Bld) [#/Vol] 6.19 10*3/uL Normal 3.70-11.00 [facility] Comment on above: Order Comment: Speci men Type: BLOOD SPECIMENOrdering Facility: [facility] Address: [address] [place] [address] Performed By: #### 5 8410-2 ####[facility]ORATORYCLIA [id number] [address] OF [place] CNPVicky 02-25-2025 CNPN Telephone (AGCDUSTIN ) MARISSABRYCE OCAMPO ([id number]) 1940 M Date Time Provider Department 02/25/25 MEGHANA FLOR During your visit today, we recorded the following information about you: Meghana Flor, VICE PRESIDENT OF RECRUITING.CUSTOM PROTECTION OFFICER 02/25/2025 10:37 AM Signed Pt had PCI to SEWER DIGGER of LAD today. He is a know pt, previously established in [facility] clinic. Will arrange for office follow up with myself to reassess symtpoms. If symptoms persist, would likely proceed with [facility]R. Ximena/Lito- Can you please schedule for follow up visit with myself in 4 weeks. Looks like my Tuesdays are pretty booked up . Please schedule him 03/26/25 at 2:00 PM Thanks! Meghana Flor APRN.CUSTOM PROTECTION OFFICER Allergies As of Date: 02/25/2025 (No Known Allergies) Date Reviewed: 02/25/2025 Reviewed by: Betzy Polanco, RN - Fully Assessed Prescriptions as of 02/25/2025 - rivaroxaban (XARELTO) 15 mg tablet Take 15 mg by mouth daily with dinner. - bacitracin 500 unit/gram ointment APPLY TO THE AFFECTED AREA(S) DAILY - finasteride (PROSCAR) 5 mg tablet Take 5 mg by mouth once daily. - acetaminophen (TYLENOL) 325 mg tablet Take 2 tablets by mouth every 4 hours as needed. - tamsulosin (FLOMAX) 0.4 mg Take 1 capsule by mouth daily at bedtime. - atorvastatin (LIPITOR) 40 mg tablet Take 1 tablet by mouth daily at bedtime. - sulfaSALAzine EC (AZULFIDINE EN) 500 mg EC tablet Take 1 tablet by mouth three times daily. - folic acid 1 mg tablet Take 1 tablet by mouth once daily. - traZODone (DESYREL) 50 mg tablet Take 1 tablet by mouth daily at bedtime. - amiodarone (PACERONE) 200 mg tablet Take 200 mg by mouth twice daily. - aspirin (DRAGAN CHEWABLE ASPIRIN) 81 mg chewable tablet Take 81 mg by mouth once daily. - mirtazapine (REMERON) 15 mg tablet Take 15 mg by mouth daily at bedtime. - methotrexate 2.5 mg tablet - Ketorolac Tromethamine (ACLUAR LS) 0.4 % drop Facility-Administered Medications as of 02/25/2025 - NaCl 0.9% iv flush bag - acetaminophen 650 mg tab(s) (TYLENOL) - nitroglycerin sublingual 0.4 mg tab(s) (NITROQUICK) - atropine 0.4 mg injection - benzocaine-menthol 1 lozenge (CEPACOL) - ticagrelor 90 mg tab(s) (BRILINTA) - aspirin 81 mg chewable tab(s) Problem List As Of Date 02/25/2025 Noted Resolved Syncope [R55] 08/12/2020 Severe protein-calorie malnutrition (HCC) [E43] 08/13/2020 Valvular heart disease [I38] 02/10/2025 Stable angina [I20.89] 02/25/2025 Encounter Status:Closed by MEGHANA FLOR on 02/25/25 Normal [facility] ECG COMPLETEon 02-25-2025 ECG COMPLETE Ventricular Rate : 5 8 BPM Atrial Rate : 58 BPM P-R Interval : 290 ms QRS Duration : 96 ms Q-T Interval : 486 ms QTC Calculation(Bazett) : 477 ms Calculated P Thorpe : 80 degrees Calculated R Thorpe : 63 degrees Calculated T Thorpe : 58 degrees SINUS BRADYCARDIA WITH 1ST DEGREE A-V BLOCK LOW VOLTAGE QRS BORDERLINE ECG WHEN COMPARED WITH ECG OF 12-Aug-2020 22:43, QRS AXIS SHIFTED RIGHT BORDERLINE CRITERIA FOR LATERAL INFARCT ARE NO LONGER PRESENT Confirmed by ROMMEL ALATORRE MD ([id number]) on 02/25/2025 2:49:16 PM NAME : BRYCE ANN PID : [id number] : 1940 Gender : Male Race : ORD : [id number] Procedure Date : Feb 25 2025 10:57:32 Edit Date : Feb 25 2025 14:49:18 Diagnosis: SINUS BRADYCARDIA WITH 1ST DEGREE A-V BLOCK LOW VOLTAGE QRS BORDERLINE ECG WHEN COMPARED WITH ECG OF 12-Aug-2020 22:43, QRS AXIS SHIFTED RIGHT BORDERLINE CRITERIA FOR LATERAL INFARCT ARE NO LONGER PRESENT Confirmed by ROMMEL ALATORRE MD ([id number]) on 02/25/2025 2:49:16 PM Test Reason : Post-Cath Location : [address] : [place] [address] Overread By : ROMMEL ALATORRE MD Edited By : ROMMEL ALATORRE MD Referred By : FELIBERTO ROSENTHAL Acquired by : FREDY HAN Normal [facility] Gas and Carbon monoxide pane l (BldV)on 02-25-2025 Base excess Calc (BldV) [Moles/Vol] 1 mmol/L Normal 0-2 [facility] Comment on above: Order Comment: Speci men Type: VENOUS BLOOD SPECIMENOrdering Facility: [facility] Address: [address] [place] [address] Performed By: #### 2 4344-4 ####[facility]ORY[facility]IA [id number] [address] [place] Body temperature 98.6 [degF] Normal [facility] Comment on above: Order Comment: Speci men Type: VENOUS BLOOD SPECIMENOrdering Facility: [facility] Address: [address] [place] [address] Performed By: #### 2 4344-4 ####[facility]ORYCLIA [id number] [address] [place] Calcium.ionized (BldV) [Mass/Vol] 1.14 mmol/L Normal 1.08-1.30 [facility] Comment on above: Order Comment: Speci men Type: VENOUS BLOOD SPECIMENOrdering Facility: [facility] Address: [address] [place] [address] Performed By: #### 2 4344-4 ####[facility]ORYCLIA [id number] [address] [place] Calcium.ionized adjusted to pH 7.4 (BldA) [Moles/Vol] 1.12 mmol/L Normal 1.08-1.30 [facility] Comment on above: Order Comment: Speci men Type: VENOUS BLOOD SPECIMENOrdering Facility: [facility] Address: [address] [place] [address] Performed By: #### 2 4344-4 ####[facility]ORYCLIA [id number] [address] [place] Carboxyhemoglobin (BldV) [Mass fraction] 2.4 % High 0.0-2.0 [facility] Comment on above: Order Comment: Speci men Type: VENOUS BLOOD SPECIMENOrdering Facility: [facility] Address: [address] [place] [address] Result Comment: Carb oxyhemoglobin Reference Range for Smokers: 2.0-8.0% Performed By: #### 2 4344-4 ####[facility]ORYCLIA [id number] [address] [place] Chloride [Moles/Vol] 103 mmol/L Normal 97-105 [facility] Comment on above: Order Comment: Speci men Type: VENOUS BLOOD SPECIMENOrdering Facility: [facility] Address: [address] [place] [address] Performed By: #### 2 4344-4 ####[facility]ORYCLIA [id number] [address] [place] CO2 (BldV) [Partial pressure] 48 mm[Hg] Normal 42-55 [facility] Comment on above: Order Comment: Speci men Type: VENOUS BLOOD SPECIMENOrdering Facility: [facility] Address: [address] [place] [address] Performed By: #### 2 4344-4 ####[facility]ORYCLIA [id number] [place] [address] [place] Glucose [Mass/Vol] 122 mg/dL High 60-105 [facility] Comment on above: Order Comment: Speci men Type: VENOUS BLOOD SPECIMENOrdering Facility: [facility] Address: [address] [place] [address] Performed By: #### 2 4344-4 ####[facility]ORYCLIA [id number] [place] [address] [place] HCO3 (Bld) [Moles/Vol] 26 mmol/L Normal 24-28 [facility] Comment on above: Order Comment: Speci men Type: VENOUS BLOOD SPECIMENOrdering Facility: [facility] Address: [address] [place] [address] Performed By: #### 2 4344-4 ####[facility]ATORYCLIA [id number] [place] [address] [place] Hematocrit (Bld) [Volume fraction] 31.3 % Low 39.0-51.0 [facility] Comment on above: Order Comment: Speci men Type: VENOUS BLOOD SPECIMENOrdering Facility: [facility] Address: [address] [place] [address] Performed By: #### 2 4344-4 ####[facility]ORYCLIA [id number] [place] [address] [place] Hemoglobin (Bld) [Mass/Vol] 10.1 g/dL Low 13.0-17.0 [facility] Comment on above: Order Comment: Speci men Type: VENOUS BLOOD SPECIMENOrdering Facility: [facility] Address: [address] [place] [address] Performed By: #### 2 4344-4 ####[facility]ORYCLIA [id number] [place] [address] [place] Lactate [Moles/Vol] 1.3 mmol/L Normal 0.5-2.2 [facility] Comment on above: Order Comment: Speci men Type: VENOUS BLOOD SPECIMENOrdering Facility: [facility] Address: [address] [place] [address] Performed By: #### 2 4344-4 ####[facility]ORYCLIA [id number] [address] [place] LITERS 2 Liters/min Normal [facility] Comment on above: Order Comment: Speci men Type: VENOUS BLOOD SPECIMENOrdering Facility: [facility] Address: [address] [place] [address] Performed By: #### 2 4344-4 ####[facility]ATORYCLIA [id number] [address] [place] Methemoglobin (Bld) [Mass fraction] 0.7 % Normal 0.0-1.5 [facility] Comment on above: Order Comment: Speci men Type: VENOUS BLOOD SPECIMENOrdering Facility: [facility] Address: [address] [place] [address] Performed By: #### 2 4344-4 ####[facility]ORYCLIA [id number] [address] O2 THERAPY NC = Nasal Cannula Normal [facility] Comment on above: Order Comment: Speci men Type: VENOUS BLOOD SPECIMENOrdering Facility: [facility] Address: [address] [place] [address] Performed By: #### 2 4344-4 ####[facility]ORYCLIA [id number] [address] [place] Oxygen (BldV) [Partial pressure] 78 mm[Hg] High 35-45 [facility] Comment on above: Order Comment: Speci men Type: VENOUS BLOOD SPECIMENOrdering Facility: [facility] Address: [address] [place] [address] Performed By: #### 2 4344-4 ####[facility]ORYCLIA [id number] [address] [place] Oxygen saturation in Venous blood 94 % High 60-85 [facility] Comment on above: Order Comment: Speci men Type: VENOUS BLOOD SPECIMENOrdering Facility: [facility] Address: [address] [place] [address] Performed By: #### 2 4344-4 ####[facility]ATORYCLIA [id number] [place] [address] [place] Oxyhemoglobin (BldV) [Mass fraction] 92 % High 60-85 [facility] Comment on above: Order Comment: Speci men Type: VENOUS BLOOD SPECIMENOrdering Facility: [facility] Address: [address] [place] [address] Performed By: #### 2 4344-4 ####[facility]ORYCLIA [id number] [address] STATES OF [facility] pH (BldV) 7.36 [pH] Normal 7.32-7.42 [facility] Comment on above: Order Comment: Speci men Type: VENOUS BLOOD SPECIMENOrdering Facility: [facility] Address: [address] [place] [address] Performed By: #### 2 4344-4 ####[facility]ORYCLIA [id number] [address] Potassium [Moles/Vol] 3.9 mmol/L Normal 3.5-5.0 [facility] Comment on above: Order Comment: Speci men Type: VENOUS BLOOD SPECIMENOrdering Facility: [facility] Address: [address] [place] [address] Performed By: #### 2 4344-4 ####[facility]ORYCLIA [id number] [address] STATES [facility] Sodium [Moles/Vol] 136 mmol/L Normal 136-144 [facility] Comment on above: Order Comment: Speci men Type: VENOUS BLOOD SPECIMENOrdering Facility: [facility] Address: [address] [place] [address] Performed By: #### 2 4344-4 ####[facility]ORYCLIA [id number] [address] [place] HISTORY PHYSICALon HISTORY PHYSICAL HNO ID: [id number] Author: FELIBERTO ROSENTHAL MD Service: Cardiovascular Medicine Author Type: Physician Type: H&P Filed: 03/06/2025 10:55 Note Text: [facility] STAFF PHYSICIAN NOTE OF PERSONAL INVOLVEMENT IN CARE IMPRESSION: Patient is a 84 year old male with 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 PLAN: See orders I have reviewed the documentation obtained and documented by the Resident and I have personally performed a face to face assessment of the patient and have personally participated in the saldaña components of the visit which includes medical decision making.. I have discussed the case and management of the patient's care. Critical Care: I personally spent 35 minutes of critical care time involved in the care of this patient. This care required my full attention and direct personal managment of patient's coronary artery disease, severe [place] aortic valve stenosis, chronic cardiac issues and postoperative care. The time spent excluded other procedures/services provided by me. STAFF PHYSICIAN: Feliberto Rosenthal MD DATE OF SERVICE: January TIME OF SERVICE: 10:54 AM Cardiovascular Intensive Care Unit History AND Physical SERVICE DATE: February 25, 2025 SERVICE TIME: 5:44 PM Admission Date: 02/25/2025 Patient is a 84 year old White male with Past Medical History of: The patient has a history of hypertension (HTN), hyperlipidemia (HLD), coronary artery disease (CAD), and has previously undergone drug-eluting stent placement in the obtuse marginal artery (OM1) due to a non-STEMI presentation. 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 He is currently seeking evaluation for aortic valve stenosis. 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 Over the past 8 months, he has experienced progressively worsening shortness of breath with exertion, particularly when climbing stairs. This has been gradually worsening, and he reports feeling extremely fatigued after any physical activity. He denies symptoms such as orthopnea, paroxysmal nocturnal dyspnea, syncope, presyncope, or palpitations but acknowledges persistent bilateral leg swelling, which is a chronic issue. He also denies any chest pain or pressure during exertion. Upon my bedside evaluation, the patient was found to have a 10 cm hematoma. Pressure applied has provided some improvement, though mild, constant oozing persists at the arterial site. - PAST MEDICAL HISTORY Diagnosis Date Atrial fibrillation (HCC) Cardiomyopathy, ischemic Chronic systolic heart failure (HCC) Coronary artery disease Nonrheumatic aortic valve stenosis Review of Systems Constitutional: Positive for malaise/fatigue. HENT: Negative. Eyes: Negative. Respiratory: Positive for cough and shortness of breath. Negative for hemoptysis, sputum production and wheezing. Cardiovascular: Negative for chest pain, palpitations, orthopnea, claudication, leg swelling and PND. Gastrointestinal: Negative. Genitourinary: Negative. Musculoskeletal: Negative. Skin: Negative. Neurological: Negative. Endo/Heme/Allergies: Negative. Psychiatric/Behavioral: Negative. PAST MEDICAL HISTORY Diagnosis Date Atrial fibrillation (HCC) Cardiomyopathy, ischemic Chronic systolic heart failure (HCC) Coronary artery disease Nonrheumatic aortic valve stenosis No past surgical history on file. ALLERGIES No Known Allergies SOCIAL HISTORY[1] Sexual Activity: Not on file No family history on file. Objective VITAL SIGNS (last 24hrs min/max): 02/25/25 1400 02/25/25 1500 02/25/25 1530 02/25/25 1600 BP: 135/59 110/64 127/63 104/79 Pulse: (!) 52 (!) 54 (!) 56 (!) 59 Resp: 15 19 20 17 Temp: TempSrc: SpO2: 97% 97% 96% 95% Weight: Height: NET FLUID BALANCE Intake/Output Summary (Last 24 hours) at 02/25/2025 1744 Last data filed at 02/25/2025 1615 Gross per 24 hour Intake 120 ml Output 2650 ml Net -2530 ml Physical Exam: Physical Exam HENT: Right Ear: External ear normal. Left Ear: External ear normal. Mouth/Throat: Mouth: Mucous membranes are moist. Eyes: Pupils: Pupils are equal, round, and reactive to light. Cardiovascular: Pulses: Normal pulses. Heart sounds: Murmur heard. Pulmonary: Effort: Pulmonary effort is normal. Breath sounds: Normal breath sounds. Abdominal: Palpations: Abdomen is soft. Musculoskeletal: Cervical back: Normal range of motion. Right lower leg: No edema. Left lower leg: No edema. Skin: General: Skin is warm. Neurological: General: No focal deficit pr (more content not included)... Normal [facility] Hgb Bld-mCncon 02-25-2025 Hemoglobin (Bld) [Mass/Vol] 8.8 g/dL Low 13.0-17.0 [facility] Comment on above: Order Comment: Speci men Type: BLOOD SPECIMENOrdering Facility: [facility] Address: [address] [place] [address] Performed By: #### 7 18-7 ####[facility]ORYCLIA [id number] [address] [place] Procalcitonin SerPl-mCncon 0 02-25-2025 Procalcitonin [Mass/Vol] ng/mL Normal <0.09 [facility] Comment on above: Order Comment: Speci men Type: BLOOD SPECIMENOrdering Facility: [facility] Address: [address] [place] [address] Result Comment: For a guided interpretation of test results, please visit the Change in Procalcitonin Calculator, [email or web address]. Performed By: #### 3 3959-8, 15555-8 ####[facility]ORYCLIA [id number] [address] [place] Renal function 2000 panelon 02-25-2025 Albumin [Mass/Vol] 3.7 g/dL Low 3.9-4.9 [facility] Comment on above: Order Comment: Speci men Type: BLOOD SPECIMENOrdering Facility: [facility] Address: [address] [place] [address] Performed By: #### 3 3959-8, 61055-5 ####[facility]ORYCLIA [id number] [address] STATES OF [facility] Anion gap [Moles/Vol] 10 mmol/L Normal 8-15 [facility] Comment on above: Order Comment: Speci men Type: BLOOD SPECIMENOrdering Facility: [facility] Address: [address] [place] [address] Performed By: #### 3 3959-8, 17362-9 ####[facility]ORYCLIA [id number] [place] [address] [place] Calcium [Mass/Vol] 8.4 mg/dL Low 8.5-10.2 [facility] Comment on above: Order Comment: Speci men Type: BLOOD SPECIMENOrdering Facility: [facility] Address: [address] [place] [address] Performed By: #### 3 3959-8, 34217-2 ####[facility]ORYCLIA [id number] [address] STATES OF [facility] Chloride [Moles/Vol] 104 mmol/L Normal 98-107 [facility] Comment on above: Order Comment: Speci men Type: BLOOD SPECIMENOrdering Facility: [facility] Address: [address] [place] [address] Performed By: #### 3 3959-8, 18404-4 ####[facility]ORYCLIA [id number] [address] STATES OF [facility] CO2 [Moles/Vol] 24 mmol/L Normal 22-30 [facility] Comment on above: Order Comment: Speci men Type: BLOOD SPECIMENOrdering Facility: [facility] Address: [address] [place] [address] Performed By: #### 3 3959-8, 65543-5 ####[facility]ORYCLIA [id number] [address] OF [facility] Creatinine [Mass/Vol] 0.82 mg/dL Normal 0.73-1.22 [facility] Comment on above: Order Comment: Speci men Type: BLOOD SPECIMENOrdering Facility: [facility] Address: [address] [place] [address] Performed By: #### 3 3959-8, 40390-2 ####[facility]ORYCLIA [id number] [address] [place] eGFRcr SerPlBld CKD-EPI 2020 88 mL/min/1.73m??? Normal >=60 [facility] Comment on above: Order Comment: Speci men Type: BLOOD SPECIMENOrdering Facility: [facility] Address: [address] [place] [address] Result Comment: Hortensia mated Glomerular Filtration Rate (eGFR) is calculated using the 2020 CKD-EPI creatinine equation. This equation utilizes serum creatinine, sex, and age as parameters. The creatinine assay has traceable calibration to isotope dilution-mass spectrometry. Refer to KDIGO guidelines for clinical interpretation. In patients with unstable renal function, e.g. those with acute kidney injury, the eGFR may not accurately reflect actual GFR. Performed By: #### 3 3959-8, 04095-8 ####[facility]ATORYCLIA [id number] [place] [address] [place] Glucose [Mass/Vol] 98 mg/dL Normal 74-99 [facility] Comment on above: Order Comment: Speci men Type: BLOOD SPECIMENOrdering Facility: [facility] Address: [address] [place] [address] Result Comment: The [place] Diabetes Association (ADA) provides guidance for cutoff values for fasting glucose and random glucose. The ADA defines fasting as no caloric intake for at least 8 hours. Fasting plasma glucose results between 100 to 125 mg/dL indicate increased risk for diabetes (prediabetes). Fasting plasma glucose results greater than or equal to 126 mg/dL meet the criteria for diagnosis of diabetes. In the absence of unequivocal hyperglycemia, results should be confirmed by repeat testing. In a patient with classic symptoms of hyperglycemia or hyperglycemic crisis, random plasma glucose results greater than or equal to 200 mg/dL meet the criteria for diagnosis of diabetes. Reference: Standards of Medical Care in Diabetes 2016, [place] Diabetes Association. Diabetes Care. 2016.39(Suppl 1). Performed By: #### 3 3959-8, 82185-3 ####[facility]ATORYCLIA [id number] [place] [address] [place] Phosphate [Mass/Vol] 3.7 mg/dL Normal 2.7-4.8 [facility] Comment on above: Order Comment: Speci men Type: BLOOD SPECIMENOrdering Facility: [facility] Address: [address] [place] [address] Performed By: #### 3 3959-8, 06975-3 ####[facility]ATORYCLIA [id number] [place] [id number] [place] Potassium [Moles/Vol] 4.0 mmol/L Normal 3.7-5.1 [facility] Comment on above: Order Comment: Speci men Type: BLOOD SPECIMENOrdering Facility: [facility] Address: [address] [place] [address] Performed By: #### 3 3959-8, 79587-7 ####[facility]ATORYCLIA [id number] [place] [address] [place] [facility] Sodium [Moles/Vol] 138 mmol/L Normal 136-144 [facility] Comment on above: Order Comment: Speci men Type: BLOOD SPECIMENOrdering Facility: [facility] Address: [address] [place] [address] Performed By: #### 3 3959-8, 29923-7 ####[facility]ORYCLIA [id number] [place] [id number] [facility] Urea nitrogen [Mass/Vol] 12 mg/dL Normal 9-24 [facility] Comment on above: Order Comment: Speci men Type: BLOOD SPECIMENOrdering Facility: [facility] Address: [address] [place] [address] Performed By: #### 3 3959-8, 56569-6 ####[facility]ORYCLIA [id number] [place] [id number] [facility] XR CHEST 1V FRONTALon 2024 XR CHEST 1V FRONTAL * * *Final Report* * * DATE OF EXAM: Feb 25 2025 12:53PM [id number] [id number] - XR CHEST 1V FRONTAL / PROCEDURE REASON: Shortness of breath * * * * Physician Interpretation * * * * EXAMINATION: CHEST RADIOGRAPH (SINGLE VIEW AP OR PA) CLINICAL HISTORY: Shortness of breath MQ: XC1_5 Comparison: CT chest 02/10/2025 RESULT: Lines, tubes, and devices: None. Lungs and pleura: Hazy airspace opacities bilaterally most prominently in the right upper lobe. Low lung volumes. Bibasilar atelectasis. No pneumothorax. Cardiomediastinal silhouette: Normal cardiomediastinal silhouette. Other: No bony abnormalities. IMPRESSION: Multifocal hazy airspace opacities most prominent in the right upper lobe which may represent pneumonia or edema. Java Programming Professor: FELIX Transcribe Date/Time: Feb 25 2025 1:01P Dictated by : BAHMAN PLASENCIA MD This examination was interpreted and the report reviewed and electronically signed by: BAHMAN PLASENCIA MD on Feb 25 2025 1:02PM EST [id number] Normal [facility] Basic metabolic 2000 panelon 02-21-2025 Anion gap [Moles/Vol] 13 mmol/L Normal 8-15 [facility] Comment on above: Order Comment: Speci men Type: BLOOD SPECIMEN [facility] Address: [address] [place] [address] Performed By: #### 2 4321-2 #### [facility] CLIA [id number] [address] [place] [address] [place] Calcium [Mass/Vol] 9.4 mg/dL Normal 8.5-10.2 [facility] Comment on above: Order Comment: Speci men Type: BLOOD SPECIMEN [facility]ing [facility] Address: [address] [place] [address] Performed By: #### 2 4321-2 #### [facility] CLIA [id number] [address] [place] [address] [place] Chloride [Moles/Vol] 96 mmol/L Low 98-107 [facility] Comment on above: Order Comment: Speci men Type: BLOOD SPECIMEN [facility]ing [facility]: [facility] Address: [address] [place] [address] Performed By: #### 2 4321-2 #### [facility] CLIA [id number] [address] [place] [address] [place] CO2 [Moles/Vol] 24 mmol/L Normal 22-30 [facility] Comment on above: Order Comment: Speci men Type: BLOOD SPECIMEN [facility] Address: [address] [place] [address] Performed By: #### 2 4321-2 #### [facility] CLIA [id number] [address] [place] [address] [place] Creatinine [Mass/Vol] 0.91 mg/dL Normal 0.73-1.22 [facility] Comment on above: Order Comment: Speci men Type: BLOOD SPECIMEN Ordering Facility: [facility] Address: [address] [place] [address] Performed By: #### 2 4321-2 #### [facility] CLIA [id number] [address] [place] [address] [place] eGFRcr SerPlBld CKD-EPI 2020 84 mL/min/1.73m??? Normal >=60 [facility] Comment on above: Order Comment: Angel men Type: BLOOD SPECIMEN Ordering Facility: [facility] Address: [address] [place] [address] Result Comment: Hortensia mated Glomerular Filtration Rate (eGFR) is calculated using the 2020 CKD-EPI creatinine equation. This equation utilizes serum creatinine, sex, and age as parameters. The creatinine assay has traceable calibration to isotope dilution-mass spectrometry. Refer to KDIGO guidelines for clinical interpretation. In patients with unstable renal function, e.g. those with acute kidney injury, the eGFR may not accurately reflect actual GFR. Performed By: #### 2 4321-2 #### [facility] CLIA [id number] [address] [place] [address] [place] Glucose [Mass/Vol] 79 mg/dL Normal 74-99 [facility] Comment on above: Order Comment: Angel carrasquillo Type: BLOOD SPECIMEN Ordering Facility: [facility] Address: [address] [place] [address] Result Comment: The [place] Diabetes Association (ADA) provides guidance for cutoff values for fasting glucose and random glucose. The ADA defines fasting as no caloric intake for at least 8 hours. Fasting plasma glucose results between 100 to 125 mg/dL indicate increased risk for diabetes (prediabetes). Fasting plasma glucose results greater than or equal to 126 mg/dL meet the criteria for diagnosis of diabetes. In the absence of unequivocal hyperglycemia, results should be confirmed by repeat testing. In a patient with classic symptoms of hyperglycemia or hyperglycemic crisis, random plasma glucose results greater than or equal to 200 mg/dL meet the criteria for diagnosis of diabetes. Reference: Standards of Medical Care in Diabetes 2016, [place] Diabetes Association. Diabetes Care. 2016.39(Suppl 1). Performed By: #### 2 4321-2 #### [facility] CLIA [id number] [address] [place] [address] [place] Potassium [Moles/Vol] 4.6 mmol/L Normal 3.7-5.1 [facility] Comment on above: Order Comment: Speci men Type: BLOOD SPECIMEN Ordering Facility: [facility] Address: [address] [place] [address] Performed By: #### 2 4321-2 #### [facility] CLIA [id number] [address] [place] [address] [place] Sodium [Moles/Vol] 133 mmol/L Low 136-144 [facility] Comment on above: Order Comment: Speci men Type: BLOOD SPECIMEN Ordering Facility: [facility] Address: [address] [place] [address] Performed By: #### 2 4321-2 #### [facility] CLIA [id number] [address] [place] [address] [place] Urea nitrogen [Mass/Vol] 14 mg/dL Normal 9-24 [facility] Comment on above: Order Comment: Speci men Type: BLOOD SPECIMEN Ordering Facility: [facility] Address: [address] [place] [address] Performed By: #### 2 4321-2 #### [facility] CLIA [id number] [address] [place] [address] [place] CBC panel Auto (Bld)on 02-21 Erythrocyte distribution width (RBC) [Ratio] 14.7 % Normal 11.5-15.0 [facility] Comment on above: Order Comment: Speci men Type: BLOOD SPECIMEN Ordering Facility: [facility] Address: [address] [place] [address] Performed By: #### 5 8410-2 #### [facility] CLIA [id number] [address] [place] [address] [place] Hematocrit (Bld) [Volume fraction] 33.4 % Low 39.0-51.0 [facility] Comment on above: Order Comment: Speci men Type: BLOOD SPECIMEN Ordering Facility: [facility] Address: [address] [place] [address] Performed By: #### 5 8410-2 #### [facility] CLIA [id number] [address] [place] [address] [place] Hemoglobin (Bld) [Mass/Vol] 11.0 g/dL Low 13.0-17.0 [facility] Comment on above: Order Comment: Speci men Type: BLOOD SPECIMEN Ordering Facility: [facility] Address: [address] [place] [address] Performed By: #### 5 8410-2 #### [facility] CLIA [id number] [address] [place] [address] [place] MCH (RBC) [Entitic mass] 33.6 pg Normal 26.0-34.0 [facility] Comment on above: Order Comment: Speci men Type: BLOOD SPECIMEN Ordering Facility: [facility] Address: [address] [place] [address] Performed By: #### 5 8410-2 #### [facility] CLIA [id number] [address] [place] [address] [place] MCHC (RBC) [Mass/Vol] 32.9 g/dL Normal 30.5-36.0 [facility] Comment on above: Order Comment: Speci men Type: BLOOD SPECIMEN Ordering Facility: [facility] Address: [address] [place] [address] Performed By: #### 5 8410-2 #### [facility] CLIA [id number] [address] [place] [address] [place] MCV (RBC) [Entitic vol] 102.1 fL High 80.0-100.0 [facility] Comment on above: Order Comment: Speci men Type: BLOOD SPECIMEN Ordering Facility: [facility] Address: [address] [place] [address] Performed By: #### 5 8410-2 #### [facility] CLIA [id number] [address] [place] [address] [place] Nucleated RBC (Bld) [#/Vol] 10*3/uL Normal <0.01 [facility] Comment on above: Order Comment: Speci men Type: BLOOD SPECIMEN Ordering Facility: [facility] Address: [address] [place] [address] Performed By: #### 5 8410-2 #### [facility] CLIA [id number] [address] [place] [address] [place] Platelet mean volume (Bld) [Entitic vol] 9.8 fL Normal 9.0-12.7 [facility] Comment on above: Order Comment: Speci men Type: BLOOD SPECIMEN Ordering Facility: [facility] Address: [address] [place] [address] Performed By: #### 5 8410-2 #### [facility] CLIA [id number] [address] [place] [address] [place] Platelets (Bld) [#/Vol] 212 10*3/uL Normal 150-400 [facility] Comment on above: Order Comment: Speci men Type: BLOOD SPECIMEN Ordering Facility: [facility] Address: [address] [place] [address] Performed By: #### 5 8410-2 #### [facility] CLIA [id number] [address] [place] [address] [place] RBC (Bld) [#/Vol] 3.27 10*6/uL Low 4.20-6.00 [facility] Comment on above: Order Comment: Speci men Type: BLOOD SPECIMEN Ordering Facility: [facility] Address: [address] [place] [address] Performed By: #### 5 8410-2 #### [facility] CLIA [id number] [address] [place] [address] [place] WBC (Bld) [#/Vol] 6.10 10*3/uL Normal 3.70-11.00 [facility] Comment on above: Order Comment: Speci men Type: BLOOD SPECIMEN Ordering Facility: [facility] Address: [address] [place] [address] Performed By: #### 5 8410-2 #### [facility] CLIA [id number] [address] [place] [address] [place] CONFIRM BLOOD TYPEon 025 ABO O Normal [facility] Comment on above: Order Comment: Speci men Type: BLOOD SPECIMEN Ordering Facility: [facility] Address: [address] [place] [address] Performed By: #### C ONABO #### [facility] CLIA [id number] [address] [place] [address] [place] Rh Nom (Bld) Positive Normal [facility] Comment on above: Order Comment: Speci men Type: BLOOD SPECIMEN Ordering Facility: [facility] Address: [address] [place] [address] Performed By: #### C ONABO #### [facility] CLIA [id number] [address] [place] [address] [place] TYPE AND SCREEN,30 DAYon ABO O Normal [facility] Comment on above: Order Comment: Speci men Type: BLOOD SPECIMEN Ordering Facility: [facility] Address: [address] [place] [address] Performed By: #### T SCR30 #### [facility] CLIA [id number] [address] [place] [address] [place] Rh Nom (Bld) Positive Normal [facility] Comment on above: Order Comment: Speci men Type: BLOOD SPECIMEN Ordering Facility: [facility] Address: [address] [place] [address] Performed By: #### T SCR30 #### [facility] BLOOD [facility] [id number] [address] [place] [address] Gaye 02-18-2025 RAJEEV Telephone (AGCARDPOB ) BRYCE ANN ([id number]) 1940 M Date Time Provider Department 02/18/25 MEGHANA FLOR During your visit today, we recorded the following information about you: Meghana Flor APRN.CNP 02/18/2025 10:06 AM Addendum MULTI DISCIPLINARY HIGH RISK AVR CARDIAC TEAM Members present: Dr. Rosenthal, Dr. Montes, Chastity Sheikh CNP, Kendell Benjamin CNP,SHOSHANA Baron, Chastity Richmond CNP, Kendell Cornejo CNP Presenting Physician: see members listed above PATIENT NAME:Bryce Ann DATE: 02/18/2025 Outcome: Bryce Ann history and imaging were reviewed by the physicians in attendance. The collaborative recommendation would be proceed with TAVR, but first pursue PCI SEWER DIGGER LAD. Will thus need to wait 1 full month post PCI before being able to perform TAVR. These recommendations were communicated to the patient by our office. Will cancel upcoming PAT/1 month/1 week post op visit and 1 month ECHO. Meghana Flor APRN.CNP 02/18/2025 Meghana Flor APRN.CNP 02/18/2025 10:41 AM Signed Called and spoke with daughter Roni, explained the below. She verbalized understanding. Meghana Flor APRN.CNP Allergies As of Date: 02/18/2025 (No Known Allergies) Date Reviewed: 02/12/2025 Reviewed by: Laura Shanks LPN - Fully Assessed Reason for Visit: Treatment Team Note [Other] Primary Visit Diagnosis:Coronary artery disease involving [place] coronary artery of [place] heart without angina pectoris [I25.10] Other Visit Diagnosis:Nonrheumatic aortic (valve) stenosis [I35.0] Order(s):CARDIAC PATIENT ATTENDANT ORDER [[id number]] Order #: [id number]: 1 Prescriptions as of 02/18/2025 - rivaroxaban (XARELTO) 15 mg tablet Take 15 mg by mouth daily with dinner. - bacitracin 500 unit/gram ointment APPLY TO THE AFFECTED AREA(S) DAILY - finasteride (PROSCAR) 5 mg tablet Take 5 mg by mouth once daily. - acetaminophen (TYLENOL) 325 mg tablet Take 2 tablets by mouth every 4 hours as needed. - tamsulosin (FLOMAX) 0.4 mg Take 1 capsule by mouth daily at bedtime. - atorvastatin (LIPITOR) 40 mg tablet Take 1 tablet by mouth daily at bedtime. - sulfaSALAzine EC (AZULFIDINE EN) 500 mg EC tablet Take 1 tablet by mouth three times daily. - folic acid 1 mg tablet Take 1 tablet by mouth once daily. - traZODone (DESYREL) 50 mg tablet Take 1 tablet by mouth daily at bedtime. - amiodarone (PACERONE) 200 mg tablet Take 200 mg by mouth twice daily. - aspirin (DRAGAN CHEWABLE ASPIRIN) 81 mg chewable tablet Take 81 mg by mouth once daily. - mirtazapine (REMERON) 15 mg tablet Take 15 mg by mouth daily at bedtime. - methotrexate 2.5 mg tablet - Ketorolac Tromethamine (ACLUAR LS) 0.4 % drop Problem List As Of Date 02/18/2025 Noted Resolved Syncope [R55] 08/12/2020 Severe protein-calorie malnutrition (HCC) [E43] 08/13/2020 Valvular heart disease [I38] 02/10/2025 Letter Text Encounter Status:Closed by MEGHANA FLOR on 02/18/25 [facility] Gaye 02-17-2025 RAJEEV Telephone (AGCARDPOB ) BRYCE ANN ([id number]) 1940 M Date Time Provider Department 02/17/25 MEGHANA FLOR During your visit today, we recorded the following information about you: Aki Laughlin RN 02/17/2025 9:27 AM Signed [employer]ML[employer] Medical Inquiry form placed in Leslie Flor's POB doorbox. Blank form also scanned into the chart. ELROY Bravo Stacey, RN 02/17/2025 1:43 PM Signed Completed form faxed to [phone]. Fax confirmation received. ELROY Bravo Stacey, RN 02/17/2025 2:20 PM Signed Pt's daughter calls asking if pt could be admitted to an ECF for the week after the TAVR procedure. Roni reports it was mentioned in the OV that he should not be alone for the first few days after his procedure. She asks if this is an option? She reports pt completes all of his ADLs independently at this time. ELROY Bravo Stacey, ELROY 02/17/2025 3:01 PM Signed Meghana Flor APRN.VERITO [facility] (2:58 PM) [place] Please let her know, typically it is a 24 hour stay, and patients do not qualify for ECF. If there are any physical mobility, self care concerns, pt would need to be evaluated post procedure by physical/occupational therapy and there would need to documented need for them to qualify. Again, our patients are anticipated to leave the following day and typically very capable of resuming pre TAVR self care and ambulation. I always advise staying with them overnight the first night home for extra eyes and safety. And also, there is a 1 week driving restriction. Hope that helps to clarify! Aki Noriega RN 02/17/2025 3:01 PM Signed Spoke with pt. Notified of Leslie's message. She voices understanding. 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 - bacitracin 500 unit/gram ointment APPLY TO THE AFFECTED AREA(S) DAILY - finasteride (PROSCAR) 5 mg tablet Take 5 mg by mouth once daily. - acetaminophen (TYLENOL) 325 mg tablet Take 2 tablets by mouth every 4 hours as needed. - tamsulosin (FLOMAX) 0.4 mg Take 1 capsule by mouth daily at bedtime. - atorvastatin (LIPITOR) 40 mg tablet Take 1 tablet by mouth daily at bedtime. - sulfaSALAzine EC (AZULFIDINE EN) 500 mg EC tablet Take 1 tablet by mouth three times daily. - folic acid 1 mg tablet Take 1 tablet by mouth once daily. - traZODone (DESYREL) 50 mg tablet Take 1 tablet by mouth daily at bedtime. - amiodarone (PACERONE) 200 mg tablet Take 200 mg by mouth twice daily. - aspirin (DRAGAN CHEWABLE ASPIRIN) 81 mg chewable tablet Take 81 mg by mouth once daily. - mirtazapine (REMERON) 15 mg tablet Take 15 mg by mouth daily at bedtime. - methotrexate 2.5 mg tablet - Ketorolac Tromethamine (ACLUAR LS) 0.4 % drop Problem List As Of Date 02/17/2025 Noted Resolved Syncope [R55] 08/12/2020 Severe protein-calorie malnutrition (HCC) [E43] 08/13/2020 Valvular heart disease [I38] 02/10/2025 Encounter Status:Closed by AKI LAUGHLIN on 02/17/25 [facility] Maycol 02-12-2025 CNOV Office Visit (AGTAVR ) BRYCE ANN ([id number]) 1940 M Date Time Provider Department 02/12/25 10:30 AM CATALINO TRIPP During your visit today, we recorded the following information about you: Pulse Blood pressure Weight Height 57/minute 120/70 63 kg 1.524 m Laura Shanks LPN 02/12/2025 3:33 PM Signed CARDIAC REHAB 5 METER WALK TEST SERVICE DATE: 02/12/2025 SERVICE TIME: 10:32am 13.85 sec 11.78 sec 11.71 sec ASSESSMENT: SIGNATURE: Laura Shanks LPN PATIENT NAME: Bryce Ann DATE: February 12, 2025 TIME: 11:03 AM PAGER/CONTACT #: [phone] Catalino Tripp MD 02/12/2025 3:33 PM Signed CARDIOTHORACIC SURGERY CONSULT / HANDP SERVICE DATE: 02/12/2025 SERVICE TIME: 3:24 PM Subjective PRIMARY SERVICE: Cardiothoracic Surgery CHIEF COMPLAINT: Symptomatic severe aortic stenosis HPI: This is a 84 year old man referred for evaluation of symptomatic severe aortic stenosis with known coronary artery disease, ischemic cardiomyopathy, chronic systolic heart failure and for consideration for aortic valve replacement. He is experiencing fatigue, dyspnea, some orthopnea, and edema. 2D echo from 02/12/2025 shows: - The left ventricle is normal in size. There is no left ventricular hypertrophy. Left ventricular systolic function is normal. EF = 64 ? 5% (2D 4-ch.) Definity contrast used for endocardial border detection. Left ventricular diastolic function was not evaluated due to mitral stenosis. - The right ventricle is normal in size. Right ventricular systolic function is normal. - The left atrial cavity is moderately dilated. - The right atrial cavity is dilated. - The visualized aorta is borderline dilated with a maximal dimension of 4.0 cm. - There is moderate (2+) mitral valve regurgitation. Regurgitant orifice area (PISA) is 0.20 cm?. -Prior MV peak/mean gradients 7/2 mmHg. - Tricuspid aortic valve. There is severe aortic valve stenosis caused by calcified valve and restricted opening. AV area is 0.61 cm? (0.35 cm?/m?) by continuity, VTI. The peak gradient is 58 mmHg, the mean gradient is 34 mmHg and the dimensionless valve index is 0.22. -Prior AV peak/mean gradients 54/32 mmHg. -Possible thrombus seen in LV apex, measuring .8cm x .3cm (image# [id number]). Left heart catheterization performed on 02/10/2025 shows: Findings: Left main Calcified, no significant disease LADCTO mid vessel with bridging collaterals and right to left collaterals. LCx Mild diffuse disease, patent stent in OM1 RCA Mild diffuse disease TAVR scans performed 02/11/2025 showed: 1. Trileaflet aortic valve , with severe aortic stenosis. The aortic valve calcium score is calculated at Agatston units. 2. Aortic annular measurements are as follows: diameter: 2.9 x 2.3 cm, mean diameter 2.4 cm, circumference: 7.8 cm, cross-sectional area: 457 mm2 3. Dilated thoracic aorta (maximum diameter 4.3 cm at the level of the main pulmonary artery) , and Normal abdominal aorta. No acute aortic pathology. 4. The pelvic arteries, including the common femoral arteries are normal in course, caliber, and contour. The minimal luminal caliber throughout = 0.8 cm. 5. Coronary heights: a. Annulus-RCA distance: 1.7 cm b. Annulus-LM distance: 1.9 cm The patient has the following comorbidities: Chronic Congestive Heart Failure due to ischemic cardiomyopathy which is systolic and compensated. Weight loss Valvular disease Continue current outpatient treatment plan and current medications for these conditions, except where otherwise noted. HTN HLD Atrial fibrillation History reviewed. No pertinent past medical history. History reviewed. No pertinent surgical history. History reviewed. No pertinent family history. SOCIAL HISTORY[1] Prescriptions Prior to Admission[2] rivaroxaban (XARELTO) 15 mg tablet Take 15 mg by mouth daily with dinner. bacitracin 500 unit/gram ointment APPLY TO THE AFFECTED AREA(S) DAILY finasteride (PROSCAR) 5 mg tablet Take 5 mg by mouth once daily. acetaminophen (TYLENOL) 325 mg tablet Take 2 tablets by mouth every 4 hours as needed. tamsulosin (FLOMAX) 0.4 mg Take 1 capsule by mouth daily at bedtime. atorvastatin (LIPITOR) 40 mg tablet Take 1 tablet by mouth daily at bedtime. sulfaSALAzine EC (AZULFIDINE EN) 500 mg EC tablet Take 1 tablet by mouth three times daily. folic acid 1 mg tablet Take 1 tablet by mouth once daily. traZODone (DESYREL) 50 mg tablet Take 1 tablet by mouth daily at bedtime. amiodarone (PACERONE) 200 mg tablet Take 200 mg by mouth twice daily. aspirin (DRAGAN CHEWABLE ASPIRIN) 81 mg chewable tablet Take 81 mg by mouth once daily. mirtazapine (REMERON) 15 mg tablet Take 15 mg by mouth daily at bedtime. methotrexate 2.5 mg tablet Ketorolac Tromethamine (ACLUAR LS) 0.4 % drop ALLERGIES No Known Allergies REVIEW OF SYSTEMS: As above. (more content not included)... Normal [facility] CNFITZ Office Visit (AGTAVR ) BRYCE ANN ([id number]) 1940 M Date Time Provider Department 02/12/25 10:30 AM FELIBERTO ROSENTHAL AGTAVR During your visit today, we recorded the following information about you: Pulse Blood pressure Weight Height 57/minute 120/70 63 kg 1.524 m Laura Shanks LPN 02/12/2025 12:19 PM Signed CARDIAC REHAB 5 METER WALK TEST SERVICE DATE: 02/12/2025 SERVICE TIME: 10:32am 13.85 sec 11.78 sec 11.71 sec ASSESSMENT: SIGNATURE: Laura Shanks LPN PATIENT NAME: Bryce Ann DATE: February 12, 2025 TIME: 10:41 AM PAGER/CONTACT #: [phone] Meghana Flor APRN.VERITO 02/12/2025 12:19 PM Signed Procedure Type: Isolated AVR Perioperative Outcome Estimate % Operative Mortality 5.4% Morbidity AND Mortality 18.8% Stroke 1.19% Renal Failure 3.18% Reoperation 5.02% Prolonged Ventilation 10.5% Deep Sternal Wound Infection 0.075% Long Hospital Stay (>14 days) 10.2% Short Hospital Stay (<6 days)* 22.5% *higher values reflect a better outcome Clinical Summary Planned Surgery: Isolated AVR, Elective, First cardiovascular surgery Demographics: 84 year old, male, 61.7kg, 152.4cm, BMI: 26.6 kg/m? Lab Values: Creatinine: 0.83 mg/dL, Hematocrit: 35.4%, WBC Count: 5.4 10?/?L, Platelet Count: [id number] cells/?L Substance Abuse: Former smoker Risk Factors / Comorbidities: Hypertension, Family Hx of CAD Cardiac Status: Acute and chronic heart failure, NYHA Class II, Ejection Fraction = 40% Coronary Artery Disease: 3 vessels diseased, Angina equivalent, [place]: > 21 Days Valve Disease: Aortic Stenosis, Mild AR, Moderate MR, Mild TR Arrhythmia: Recent A-fib, Unknown Prev. Cardiac Interv: Previous PCI: Not at this facility > 6 hours Meghana Flor APRN.Feliberto Reaves MD 02/12/2025 12:19 PM Signed Chief Complaint: Patient presents with: Aortic Stenosis: Bryce is here for TAVR evaluation. Bryce Ann is a 84 year old male with a known [facility] of HTN, HLD, coronary artery disease status post drug-eluting stent placement to 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 He states that over the past 8 months he has noticed progressive shortness of breath on exertion especially when climbing stairs. He states that this continues to get worse over time and he feels very tired after any sort of exertion. He denies any orthopnea, paroxysmal nocturnal dyspnea, syncope or presyncope and denies any palpitations but does admit to bilateral leg swelling which is a chronic issue for him. He denies any chest pain or pressure with exertion. .No past medical history on file. History reviewed. No pertinent surgical history. History reviewed. No pertinent family history. SOCIAL HISTORY[1] Current Outpatient Medications Medication Sig rivaroxaban (XARELTO) 15 mg tablet Take 15 mg by mouth daily with dinner. bacitracin 500 unit/gram ointment APPLY TO THE AFFECTED AREA(S) DAILY finasteride (PROSCAR) 5 mg tablet Take 5 mg by mouth once daily. acetaminophen (TYLENOL) 325 mg tablet Take 2 tablets by mouth every 4 hours as needed. tamsulosin (FLOMAX) 0.4 mg Take 1 capsule by mouth daily at bedtime. atorvastatin (LIPITOR) 40 mg tablet Take 1 tablet by mouth daily at bedtime. sulfaSALAzine EC (AZULFIDINE EN) 500 mg EC tablet Take 1 tablet by mouth three times daily. folic acid 1 mg tablet Take 1 tablet by mouth once daily. traZODone (DESYREL) 50 mg tablet Take 1 tablet by mouth daily at bedtime. amiodarone (PACERONE) 200 mg tablet Take 200 mg by mouth twice daily. aspirin (DRAGAN CHEWABLE ASPIRIN) 81 mg chewable tablet Take 81 mg by mouth once daily. mirtazapine (REMERON) 15 mg tablet Take 15 mg by mouth daily at bedtime. methotrexate 2.5 mg tablet Ketorolac Tromethamine (ACLUAR LS) 0.4 % drop iv contrast (will be provided with radiology test) CTA ABD/PEL - No IV access, insert saline lock prior to the sedation, infusion, injection for imaging exam. Discontinue saline lock post exam. If Pt. has a central line or IVAD, may access for administration according to line specific nursing protocol. Once exam is complete flush line and de-access according to line specific nursing protocol in the CT contrast administration guidelines link. metOLazone (ZAROXOLYN) 2.5 mg tablet Take 2.5 mg by mouth Once Weekly with Dialysis. (Patient not taking: Reported on 02/12/2025) hydrOXYchloroQUINE (PLAQUENIL) 200 mg tablet Take by mouth once daily. (Patient not taking: Reported on 02/12/2025) metoprolol succinate ER (TOPROL XL) 25 mg 24 hr tablet Take 0.5 tablets by mouth once da (more content not included)... Normal [facility] Gaye 02-12-2025 VERITO Telephone (AGTAVR) MARISSABRYCE OCAMPO ([id number]) 1940 M Date Time Provider Department 02/12/25 MEGHANA FLOR During your visit today, we recorded the following information about you: Meghana Flor APRN.VERITO 02/12/2025 12:48 PM Signed Please schedule for TAVR procedure on 02/27/[address] Monae Arrive to [facility] Entrance at 0915 on day of procedure Please schedule Pre Op Visit (PAT) visit with myself on 02/21/25 at 0930 Arrive at [address], [address] Preop labwork must be completed on 02/26/25 Non-fasting, walk in appointment Can be done at any [facility] facility Please schedule patient for 1 week post op appt, 1 month post op echo, and follow up appt with myself Thanks~! Meghana Flor APRN.Ximena Mendez 02/12/2025 2:58 PM Signed Addended by: XIMENA BRYSON on: 02/12/2025 02:58 PM Modules accepted: Orders Allergies As of Date: 02/12/2025 (No Known Allergies) Date Reviewed: 02/12/2025 Reviewed by: Laura Shanks LPN - Fully Assessed Primary Visit Diagnosis:Nonrheumatic aortic (valve) stenosis [I35.0] Order(s):SURGICAL REQUEST - ELECTIVE (12/2019) [[id number]] Order #: [id number]: 1 Prescriptions as of 02/12/2025 - rivaroxaban (XARELTO) 15 mg tablet Take 15 mg by mouth daily with dinner. - bacitracin 500 unit/gram ointment APPLY TO THE AFFECTED AREA(S) DAILY - finasteride (PROSCAR) 5 mg tablet Take 5 mg by mouth once daily. - acetaminophen (TYLENOL) 325 mg tablet Take 2 tablets by mouth every 4 hours as needed. - tamsulosin (FLOMAX) 0.4 mg Take 1 capsule by mouth daily at bedtime. - atorvastatin (LIPITOR) 40 mg tablet Take 1 tablet by mouth daily at bedtime. - sulfaSALAzine EC (AZULFIDINE EN) 500 mg EC tablet Take 1 tablet by mouth three times daily. - folic acid 1 mg tablet Take 1 tablet by mouth once daily. - traZODone (DESYREL) 50 mg tablet Take 1 tablet by mouth daily at bedtime. - amiodarone (PACERONE) 200 mg tablet Take 200 mg by mouth twice daily. - aspirin (DRAGAN CHEWABLE ASPIRIN) 81 mg chewable tablet Take 81 mg by mouth once daily. - mirtazapine (REMERON) 15 mg tablet Take 15 mg by mouth daily at bedtime. - methotrexate 2.5 mg tablet - Ketorolac Tromethamine (ACLUAR LS) 0.4 % drop Problem List As Of Date 02/12/2025 Noted Resolved Syncope [R55] 08/12/2020 Severe protein-calorie malnutrition (HCC) [E43] 08/13/2020 Valvular heart disease [I38] 02/10/2025 Encounter Status:Closed by MEGHANA FLOR on 02/12/25 Normal [facility] ECHOon 02-12-2025 Echocardiography Echocardiography Rep ort: Transthoracic Echo [facility] Date of service: 02/12/2025 9:00:00 AM [facility] Ordering physician: MEGHANA FLOR Exam indication: Routine surveillance of moderate or severe valvular stenosis (>1yr) Technologist: Perla Martínez RUST Interpreting physician: Katharina Mcghee MD PATIENT: Name: MR. BRYCE ANN : 1940 Age: 84 years Gender: M History of myocardial infarction, arrhythmia and valvular heart disease. Primary rhythm: sinus. Height: 160.00 cm BSA: 1.73 m Weight: 67.50 kg BMI: 26.4 kg/m Heart rate 55 bpm Blood pressure 121/67 mmHg Color Doppler was utilized to interrogate the cardiac valves assessed and spectral Doppler was utilized to determine the flow velocities and pressure gradients reported in this exam. MEASUREMENTS: Value Indexed Normal Max aortic dimension 4.0 cm Ao < 3.8 Left atrial volume 79 ml (biplane A-L) 46 ml/m Angie <= 34 LV stroke volume 80 ml (2D 4-ch.) LVOT stroke volume 66 ml 39 ml/m LV end diastolic volume 126 ml (2D 4-ch.) 72.6 ml/m 34<=EDVi<75 LV end systolic volume 45 ml (2D 4-ch.) 26.2 ml/m Ejection Fraction 64 % (2D 4-ch.) EF > 52 FINDINGS: LEFT VENTRICLE The left ventricle is normal in size. There is no left ventricular hypertrophy. Left ventricular systolic function is normal regionally. Left ventricular diastolic function was not evaluated due to mitral annular calcification.. Definity contrast used for endocardial border detection. Diastolic Function: Respiratory Variation Expiration Inspiration % Difference MV Peak E 132.0 cm/s 126.0 cm/s 4.5 % TV Peak E 30.0 cm/s 46.0 cm/s -53.3 % Wall Motion: The entire apex is akinetic. All remaining scored segments are normal. RIGHT VENTRICLE The right ventricle is normal in size. Right ventricular systolic function is normal. Estimated right ventricular systolic pressure is 45 mmHg consistent with pulmonary hypertension. Estimated right atrial pressure is 8 mmHg based on IVC assessment. LEFT ATRIUM The left atrial cavity is moderately dilated. Pulmonary Veins: The pulmonary venous pattern showed blunted systolic flow. RIGHT ATRIUM The right atrial cavity is dilated. Inferior Vena Cava: The inferior vena cava appears dilated measuring 2.3 cm. The vessel decreases greater than 50 percent with inspiration. MITRAL VALVE There is mild mitral annular calcification observed anterior and posterior. There is moderate (2+) mitral valve regurgitation. There is mild thickening. There is mild calcification. Regurgitant orifice area (PISA) is 0.20 cm . The peak valve gradient is 7 mmHg. The mean valve gradient is 2 mmHg. The pressure half time is 82 msec. The peak mitral E/A ratio is 2.75. The mitral flow deceleration time is 284 msec. TRICUSPID VALVE The tricuspid valve leaflets are structurally normal. There is trace (trace - 1+) tricuspid valve regurgitation. AORTIC VALVE There is severe aortic valve stenosis caused by calcified valve and restricted opening. There is trace (trace - 1+) aortic valve regurgitation. Tricuspid aortic valve. There is moderate thickening. There is moderate calcification. The peak gradient is 58 mmHg (peak velocity = 380.9 cm/s). The mean gradient is 34 mmHg. The LVOT mean velocity is 57.3 cm/s. The LVOT diameter is 1.9 cm. The aortic VTI is 108.5 cm. The mean velocity in the aortic valve is 277.6 cm/s. The dimensionless valve index is 0.22. AV area is 0.61 cm (0.35 cm /m ) by continuity, VTI. The LVOT stroke volume index is 39 ml/m . PULMONIC VALVE The pulmonic valve cusps are structurally normal. There is trace pulmonic valve regurgitation. AORTA The visualized aorta is borderline dilated. Measurements - Aortic valve annulus 2.5 cm. Sinus: 4.0 cm. Sinotubular junction 3.3 cm. Mid ascending aorta 3.9 cm. INTERATRIAL SEPTUM There is no evidence of intracardiac shunting as detected by Doppler. INTERVENTRICULAR SEPTUM There is no flow through the interventricular septum as detected by Doppler. PERICARDIUM There is a small pericardial effusion adjacent to the right ventricle measuring 0.6 cm, a small pericardial effusion adjacent to the right atrium measuring 0.7 cm and a small pericardial effusion adjacent to the left ventricle and left atrium measuring 0.9 cm. No evidence of cardiac tamponade. CONCLUSIONS: - Exam indication: Routine surveillance of moderate or severe valvular stenosis (>1yr) - The left ventricle is normal in size. There is no left ventricular hypertrophy. Left ventricular systolic function is normal. EF = 64 5% (2D 4-ch.) Definity contrast used for endocardial border detection. Left ventricular diastolic function was not evaluated due to mitral stenosis. - The right ventricle is normal in size. Right ventricular systolic function is normal. - The left atrial cavity is moderately dilated. - The right atri (more content not included)... Normal [facility] BRIEF OP NOTon 02-10-2025 BRIEF OP NOT HNO ID: [id number] Author: FELIBERTO ROSENTHAL MD Service: Cardiovascular Medicine Author Type: Physician Type: Brief Op Note Filed: 02/10/2025 09:58 Note Text: Brief Cath note: Indications: Preop evaluation prior to TAVR Access: 6Fr. Right radial artery Closure: TR band Findings: Left main Calcified, no significant disease LADCTO mid vessel with bridging collaterals and right to left collaterals. LCx Mild diffuse disease, patent stent in OM1 RCA Mild diffuse disease LVEDP: valve not crossed Impressions: Severe single vessel CAD involving a known SEWER DIGGER of the mid LAD Recommend: Continue evaluation for valve replacement. Feliberto Monae MD Director Religious Education of Internal Medicine [facility] Section of Interventional Cardiology Production Sound Mixer of Structural Heart Disease [address] [place] [address] Facsimile: [phone] Email: [email or web address] [facility] CARD CATH DIAGNOSTICon 02-10 CARD CATH DIAGNOSTIC Site Id: [email or web address] Lab #: DEFAULT Study Date: 02/10/2025 Start Time: End Time: Name Duty Feliberto Monae MD PROC MD 1 Андрей Swann PROC SCRUB 1 Alla Fernandez RN PROC CIRC 1 Ana Laura Blunt RN PROC RECORD 1 + + PATIENT INFORMATION + + Name: MR. BRYCE ANN [facility] : 1940 Age: 84 years Gender: Height: 60 in / 152 cm Weight: 136.00 lb / 61.69 kg BMI: 26.70 kg/m BSA: 1.58 m + -+ CLINICAL HISTORY/INDICATIONS + -+ Appropriate Use Criteria (Diag): Preoperative assessment before valvular surgery; AUC score = 7. Procedural Status: Elective CAD Presentation: Symptoms Likely to be Ischemic Angina Classification (within 2 weeks): No Angina No Heart Failure Clinical History: Patient presents for preop evaluation prior to aortic valve surgery. + + DIAGNOSTIC FINDINGS + + Coronary Anatomy: Right Dominant Injection Site(s): Coronary Artery LMT: _ The LMT is normal. LAD: _ The proximal LAD - mild diffuse disease. _ The mid LAD - SEWER DIGGER. Additional Comment: The LAD fills by collaterals from the left and right systems. LCX: _ The Circumflex has mild diffuse disease. _ The 2nd obtuse marginal circumflex - Widely patent stent. RAMUS: _ Ramus Status: Not Applicable. RCA: _ The proximal RCA - mild diffuse disease. _ The mid RCA is narrowed 30 % - focal disease. _ The distal RCA - mild diffuse disease. + + IMPRESSION/PLAN + + Impression:Severe [place] single-vessel coronary artery disease involving a chronic total occlusion of the mid LAD. Recommended Treatment: Medical Therapy and Valve repair / replacement. Plan: Continue evaluation for valve replacement. + + HEMODYNAMICS - XPER + + + +------+--- --+-------+-----+------+---- --+ Measurement Name Sys Jocelin End Jocelin Mean A Wave V Wave + +------+--- --+-------+-----+------+---- --+ AO 139.00 48.00 80.00 + +------+--- --+-------+-----+------+---- --+ Oximetry: + +------ -+ +--+---+----- + Time Site O2 Saturation O2 PO2 HB + +------ -+ +--+---+----- + 02/10/2025 9:36:55 AM SYS ART 11.50 + +------ -+ +--+---+----- + 02/10/2025 9:36:55 AM SYS FRANCES 11.50 + +------ -+ +--+---+----- + 02/10/2025 9:36:55 AM PUL ART 11.50 + +------ -+ +--+---+----- + 02/10/2025 9:36:55 AM PUL FRANCES 11.50 + +------ -+ +--+---+----- + + -------+ ADVERSE OUTCOME(s)/COMPLICATION(s) + -------+ None + ---+ PROCEDURAL & TECHNICAL DETAILS + ---+ Date Time Description 02/10/2025 12:00:00 AM Left Heart Cath *MEDICAL HISTORY* CAD Presentation: Symptoms Likely to be Ischemic Angina Classification (within 2 weeks): No Angina No Heart Failure Family History of CAD: Unknown Coronary Artery Disease: Yes Dyslipidemia: Yes Hypertension: Yes Dialysis: Currently not on dialysis Left Ventricle EF: 64%. LVEF at Discharge: Procedure Details: Blood Loss: < 30ml Specimen: No Specimen Obtained Recent PCI Failure of Treated Vessel: Contrast: Radiation: Procedure performed under Fluoroscopic Guidance Total Dose 281.60 mGy Dose Area Product 21.34 Gy*cm Total Exposure Time 239.34 sec Baseline: HGB: Creatinine: Glucose: INR: Conscious Sedation Summary: Moderate sedation consisting of continuous ECG, pulse oxymetry and cardiopulmonary monitoring was performed by the Cardiology Nurse, overseen by the performing physician(s). Attending Physician Presence Attestation: Entire Procedure Electronically Submitted by: Feliberto Monae MD On: 02/16/2025 at 12:34:56 PM Final CC [facility] Image : [id number] [email or web address] See Link below for Image Normal [facility] 02-10-2025 RAJEEV Telephone (AGCARDPOB ) BRYCE ANN ([id number]) 1940 M Date Time Provider Department 02/10/25 MEGHANA FLOR AGCDUSTIN During your visit today, we recorded the following information about you: Meghana Flor APRN.CUSTOM PROTECTION OFFICER 02/10/2025 11:03 AM Signed c Allergies As of Date: 02/10/2025 (No Known Allergies) Date Reviewed: 02/10/2025 Reviewed by: Mallory Aguilar Tech - Fully Assessed Prescriptions as of 02/10/2025 - rivaroxaban (XARELTO) 15 mg tablet Take 15 mg by mouth daily with dinner. - iv contrast (will be provided with radiology test) CTA ABD/PEL - No IV access, insert saline lock prior to the sedation, infusion, injection for imaging exam. Discontinue saline lock post exam. If Pt. has a central line or IVAD, may access for administration according to line specific nursing protocol. Once exam is complete flush line and de-access according to line specific nursing protocol in the CT contrast administration guidelines link. - metOLazone (ZAROXOLYN) 2.5 mg tablet Take 2.5 mg by mouth Once Weekly with Dialysis. - bacitracin 500 unit/gram ointment APPLY TO THE AFFECTED AREA(S) DAILY - finasteride (PROSCAR) 5 mg tablet Take 5 mg by mouth once daily. - hydrOXYchloroQUINE (PLAQUENIL) 200 mg tablet Take by mouth once daily. - acetaminophen (TYLENOL) 325 mg tablet Take 2 tablets by mouth every 4 hours as needed. - tamsulosin (FLOMAX) 0.4 mg Take 1 capsule by mouth daily at bedtime. - atorvastatin (LIPITOR) 40 mg tablet Take 1 tablet by mouth daily at bedtime. - metoprolol succinate ER (TOPROL XL) 25 mg 24 hr tablet Take 0.5 tablets by mouth once daily. - apixaban (ELIQUIS) 5 mg tab(s) Take 1 tablet by mouth twice daily. - sulfaSALAzine EC (AZULFIDINE EN) 500 mg EC tablet Take 1 tablet by mouth three times daily. - folic acid 1 mg tablet Take 1 tablet by mouth once daily. - traZODone (DESYREL) 50 mg tablet Take 1 tablet by mouth daily at bedtime. - cyclobenzaprine (FLEXERIL) 5 mg tablet Take 1 tablet by mouth three times daily as needed for Muscle Spasm. - amiodarone (PACERONE) 200 mg tablet Take 200 mg by mouth twice daily. - aspirin (DRAGAN CHEWABLE ASPIRIN) 81 mg chewable tablet Take 81 mg by mouth once daily. - mirtazapine (REMERON) 15 mg tablet Take 15 mg by mouth daily at bedtime. - topiramate (TOPAMAX) 25 mg tablet Take 25 mg by mouth twice daily. - senna (SENNA) 8.6 mg tab Take 8.6 mg by mouth twice daily. - methotrexate 2.5 mg tablet - Ketorolac Tromethamine (ACLUAR LS) 0.4 % drop Facility-Administered Medications as of 02/10/2025 - heparin 1,000 Units in D5W 250 mL - heparin 3,000 Units in NaCl 0.9% 500 mL irrigation - nitroglycerin sublingual 0.4 mg tab(s) (NITROQUICK) - atropine 0.4 mg injection - NaCl 0.9% iv flush bag Problem List As Of Date 02/10/2025 Noted Resolved Syncope [R55] 08/12/2020 Severe protein-calorie malnutrition (HCC) [E43] 08/13/2020 Valvular heart disease [I38] 02/10/2025 Letter Text Encounter Status:Closed by MEGHANA FLOR on 02/10/25 Normal [facility] CTA ABD/PELV W IVCONon 02-10 CTA ABD/PELV W IVCON * * *Final Report* * * DATE OF EXAM: Feb 10 2025 9:05AM [id number] - CTA ABD/PELV W IVCON / PROCEDURE REASON: Aortic valve stenosis, etiology of cardiac valve disease unspecified * * * * Physician Interpretation * * * * CTA Aorta - Chest, Abdomen, and Pelvis: 02/10/2025 9:05 AM. Comparison: None. Clinical History: 84 years old Male with high-risk aortic valve disease, currently being evaluated for further treatment options. Indication: There is clinical need to define anatomy of the aortic root/annulus as well as the aorta/ileofemoral vessels. Technique: Multi-detector CT technology was employed (Siemens Definition Flash dual source scanner). Helical retrospectively gated scanning was performed of the chest, limited to the aortic root for 3-D and dynamic 4-D assessment, following the IV administration of contrast material. Subsequently, non-gated spiral imaging with high-pitch acquisition (Flash-mode) (3 mm slice reconstruction) of the chest, abdomen, and pelvis was performed without additional IV administration of contrast material. IV: 60 ml of Omnipaque 350 CT Radiation dose: Integrated Dose-length product (DLP) for this visit = 1606 mGy*cm. CT Dose Reduction Employed: Automated exposure control (AEC) and iterative reconstruction was used. For optimization of anatomic evaluation, multiplanar reconstruction, maximum intensity projections, and advanced 3-D offline post-processing were performed on a dedicated stand-alone workstation under the direct supervision of the interpreting physician. RESULT: Potential study limitations: None. CHEST: The chest wall is within normal limits. The mediastinum is unremarkable. There is no abnormal lymphadenopathy noted in the axillae, mediastinum, and conrad. The pericardium appears normal. The pulmonary arteries are normal. 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 Greatest degree of confluence is in the posterior right upper lobe.. The central airways are patent. There is no abnormal pulmonary parenchymal mass, additional infiltrate, or pleural effusion. The cardiac chambers have normal atrioventricular and ventriculoarterial concordance, and systemic and pulmonary venous return. The cardiac chamber sizes are notable for severe left atrial enlargement. The coronary arteries have normal origins and courses. There are extensive coronary calcifications identified, though this study was not optimized for coronary artery evaluation. The left ventricle is normal in size and shape. There is severe basal septal left ventricular hypertrophy: basal anteroseptum (1.7 cm), and basal inferoseptum (1.2 cm). VASCULAR WITH ADVANCED 3-D OFFLINE POST-PROCESSING: Dedicated 4-D dynamic imaging of the aortic root: The aortic valve is trileaflet. The leaflets are severely calcified. The aortic valve calcium score is calculated at 2332 Agatston units. The aortic root is ectatic, and is free from calcifications. The sinotubular junction is preserved. Aortic valve orifice area = 0.8 cm2 Aortic annulus diameter: 2.9 x 2.3 cm, mean diameter 2.4 cm Aortic annulus circumference: 7.8 cm Aortic annulus cross-sectional area: 457 mm2 Coronary Sinus measurements: a. Noncoronary sinus 3.8 cm b. Right coronary sinus 3.8 cm c. Left coronary sinus 3.9 cm Coronary heights: a. Annulus-RCA distance: 1.7 cm b. Annulus-LM distance: 1.9 cm Annulus angulations: JORDANIAN 7 caudal 26 The ascending thoracic aorta and aortic arch is normal in course, caliber, and contour. The arch vessel branching pattern is normal. The imaged arch branch vessels are patent proximally. The descending thoracic aorta is normal in course, caliber, and contour. The abdomina aorta is normal in course, caliber, and contour. There is a large amount of dystrophic wall calcification in the lumbar aorta at the origin of the celiac axis origin stenosis estimated to be in the 89%. There are 2 left renal arteries. The SMA and ANNELIESE are patent. The renal arteries are patent. The pelvic arteries are tortuous, but otherwise normal in caliber, and contour. The common femoral and superficial femoral arteries are normal in caliber, and contour. The minimal luminal caliber throughout = 0.8 cm. There is no acute aortic pathology, such as dissection, intramural hematoma, or contained rupture. Clipper Machine Operator dimensions of the thoracic aorta are as follows: 4.2 cm at the sinuses of Valsalva (measured [id number]) 3.4 cm at the sinotubular junction. 4.3 cm in the mid-ascending aorta 3.6 cm at the distal ascending aorta 3.3 cm at the mid-transverse arch 2.9 cm at the proximal descending thoracic aorta 2.5 cm at the diaphragmatic hiatus Clipper Machine Operator dimensions of the abdominal aorta are as follows: 2.6 cm at the supra-mesenteric segment 2.4 cm at the mes (more content not included)... Normal [facility] CTA CHEST (GATED) WO/W IVCON on 02-10-2025 CTA CHEST (GATED) WO/W IVCON * * *Final Report* * * DATE OF EXAM: Feb 10 2025 9:05AM [id number] - CTA CHEST (GATED) WO/W IVCON / PROCEDURE REASON: Aortic valve stenosis, etiology of cardiac valve disease unspecified * * * * Physician Interpretation * * * * CTA Aorta - Chest, Abdomen, and Pelvis: 02/10/2025 9:05 AM. Comparison: None. Clinical History: 84 years old Male with high-risk aortic valve disease, currently being evaluated for further treatment options. Indication: There is clinical need to define anatomy of the aortic root/annulus as well as the aorta/ileofemoral vessels. Technique: Multi-detector CT technology was employed (Siemens Definition Flash dual source scanner). Helical retrospectively gated scanning was performed of the chest, limited to the aortic root for 3-D and dynamic 4-D assessment, following the IV administration of contrast material. Subsequently, non-gated spiral imaging with high-pitch acquisition (Flash-mode) (3 mm slice reconstruction) of the chest, abdomen, and pelvis was performed without additional IV administration of contrast material. IV: 60 ml of Omnipaque 350 CT Radiation dose: Integrated Dose-length product (DLP) for this visit = 1606 mGy*cm. CT Dose Reduction Employed: Automated exposure control (AEC) and iterative reconstruction was used. For optimization of anatomic evaluation, multiplanar reconstruction, maximum intensity projections, and advanced 3-D offline post-processing were performed on a dedicated stand-alone workstation under the direct supervision of the interpreting physician. RESULT: Potential study limitations: None. CHEST: The chest wall is within normal limits. The mediastinum is unremarkable. There is no abnormal lymphadenopathy noted in the axillae, mediastinum, and conrad. The pericardium appears normal. The pulmonary arteries are normal. 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 Greatest degree of confluence is in the posterior right upper lobe.. The central airways are patent. There is no abnormal pulmonary parenchymal mass, additional infiltrate, or pleural effusion. The cardiac chambers have normal atrioventricular and ventriculoarterial concordance, and systemic and pulmonary venous return. The cardiac chamber sizes are notable for severe left atrial enlargement. The coronary arteries have normal origins and courses. There are extensive coronary calcifications identified, though this study was not optimized for coronary artery evaluation. The left ventricle is normal in size and shape. There is severe basal septal left ventricular hypertrophy: basal anteroseptum (1.7 cm), and basal inferoseptum (1.2 cm). VASCULAR WITH ADVANCED 3-D OFFLINE POST-PROCESSING: Dedicated 4-D dynamic imaging of the aortic root: The aortic valve is trileaflet. The leaflets are severely calcified. The aortic valve calcium score is calculated at 2332 Agatston units. The aortic root is ectatic, and is free from calcifications. The sinotubular junction is preserved. Aortic valve orifice area = 0.8 cm2 Aortic annulus diameter: 2.9 x 2.3 cm, mean diameter 2.4 cm Aortic annulus circumference: 7.8 cm Aortic annulus cross-sectional area: 457 mm2 Coronary Sinus measurements: a. Noncoronary sinus 3.8 cm b. Right coronary sinus 3.8 cm c. Left coronary sinus 3.9 cm Coronary heights: a. Annulus-RCA distance: 1.7 cm b. Annulus-LM distance: 1.9 cm Annulus angulations: JORDANIAN 7 caudal 26 The ascending thoracic aorta and aortic arch is normal in course, caliber, and contour. The arch vessel branching pattern is normal. The imaged arch branch vessels are patent proximally. The descending thoracic aorta is normal in course, caliber, and contour. The abdomina aorta is normal in course, caliber, and contour. There is a large amount of dystrophic wall calcification in the lumbar aorta at the origin of the celiac axis origin stenosis estimated to be in the 89%. There are 2 left renal arteries. The SMA and ANNELIESE are patent. The renal arteries are patent. The pelvic arteries are tortuous, but otherwise normal in caliber, and contour. The common femoral and superficial femoral arteries are normal in caliber, and contour. The minimal luminal caliber throughout = 0.8 cm. There is no acute aortic pathology, such as dissection, intramural hematoma, or contained rupture. Clipper Machine Operator dimensions of the thoracic aorta are as follows: 4.2 cm at the sinuses of Valsalva (measured [id number]) 3.4 cm at the sinotubular junction. 4.3 cm in the mid-ascending aorta 3.6 cm at the distal ascending aorta 3.3 cm at the mid-transverse arch 2.9 cm at the proximal descending thoracic aorta 2.5 cm at the diaphragmatic hiatus Clipper Machine Operator dimensions of the abdominal aorta are as follows: 2.6 cm at the supra-mesenteric segment 2.4 cm at (more content not included)... Normal [facility] NURSING PROGon 02-10-2025 NURSING PROG HNO ID: [id number] Author: GABRIELLE MÉNDEZ RN Service: ? Author Type: Registered Nurse Type: Nursing Progress Note Filed: 02/10/2025 12:20 Note Text: 1216 TR band removed, band aid applied, bruising still visible above TR band remains soft. VSS home instructions reinforced. VSS right radial pulse 2+ hand warm + cap refill. Normal [facility] ANN ([id number]) 1940 M Date Time Provider Department 02/05/25 MEGHANA FLOR During your visit today, we recorded the following information about you: Meghana Flor APRN.CUSTOM PROTECTION OFFICER 02/05/2025 1:20 PM Signed Hx, images, upcoming cath/scans and TAVR visit reviewed with Dr. Monae. Notable for apical LV thrombus on 12/24/24 ECHO. Currently on Xarelto. Dr. Monae requests repeat ECHO ok. Will arrange. Meghana Flor APRN.CNP Allergies As of Date: 02/05/2025 (No Known Allergies) Date Reviewed: 12/27/2022 Reviewed by: Meghana Alberto MA - Fully Assessed Primary Visit Diagnosis:Aortic valve stenosis, etiology of cardiac valve disease unspecified [I35.0] Order(s):ECHO [[id number]] Order #: [id number]: 1 FUTURE Prescriptions as of 02/05/2025 - iv contrast (will be provided with radiology test) CTA ABD/PEL - No IV access, insert saline lock prior to the sedation, infusion, injection for imaging exam. Discontinue saline lock post exam. If Pt. has a central line or IVAD, may access for administration according to line specific nursing protocol. Once exam is complete flush line and de-access according to line specific nursing protocol in the CT contrast administration guidelines link. - metOLazone (ZAROXOLYN) 2.5 mg tablet Take 2.5 mg by mouth Once Weekly with Dialysis. - bacitracin 500 unit/gram ointment APPLY TO THE AFFECTED AREA(S) DAILY - finasteride (PROSCAR) 5 mg tablet Take 5 mg by mouth once daily. - hydrOXYchloroQUINE (PLAQUENIL) 200 mg tablet Take by mouth once daily. - predniSONE (DELTASONE) 5 mg tablet Take 5 mg by mouth once daily. - acetaminophen (TYLENOL) 325 mg tablet Take 2 tablets by mouth every 4 hours as needed. - tamsulosin (FLOMAX) 0.4 mg Take 1 capsule by mouth daily at bedtime. - atorvastatin (LIPITOR) 40 mg tablet Take 1 tablet by mouth daily at bedtime. - metoprolol succinate ER (TOPROL XL) 25 mg 24 hr tablet Take 0.5 tablets by mouth once daily. - apixaban (ELIQUIS) 5 mg tab(s) Take 1 tablet by mouth twice daily. - sulfaSALAzine EC (AZULFIDINE EN) 500 mg EC tablet Take 1 tablet by mouth three times daily. - folic acid 1 mg tablet Take 1 tablet by mouth once daily. - clopidogrel (PLAVIX) 75 mg tablet Take 1 tablet by mouth once daily. - traZODone (DESYREL) 50 mg tablet Take 1 tablet by mouth daily at bedtime. - cyclobenzaprine (FLEXERIL) 5 mg tablet Take 1 tablet by mouth three times daily as needed for Muscle Spasm. - amiodarone (PACERONE) 200 mg tablet Take 200 mg by mouth twice daily. - aspirin (DRAGAN CHEWABLE ASPIRIN) 81 mg chewable tablet Take 81 mg by mouth once daily. - mirtazapine (REMERON) 15 mg tablet Take 15 mg by mouth daily at bedtime. - topiramate (TOPAMAX) 25 mg tablet Take 25 mg by mouth twice daily. - senna (SENNA) 8.6 mg tab Take 8.6 mg by mouth twice daily. - methotrexate 2.5 mg tablet - Ketorolac Tromethamine (ACLUAR LS) 0.4 % drop - prednisoLONE acetate (PRED FORTE, ECONOPRED PLUS) 1 % ophthalmic suspension Problem List As Of Date 02/05/2025 Noted Resolved Syncope [R55] 08/12/2020 Severe protein-calorie malnutrition (HCC) [E43] 08/13/2020 Encounter Status:Closed by MEGHANA FLOR on 02/05/25 Normal [facility] Basic metabolic 2000 panelon 01-31-2025 Anion gap [Moles/Vol] 14 mmol/L Normal 8-15 [facility] Comment on above: Order Comment: Speci men Type: BLOOD SPECIMEN Ordering Facility: [facility] Address: [address] [place] [address] Performed By: #### 2 4321-2 #### [facility] CLIA [id number] [address] [place] [address] [place] Calcium [Mass/Vol] 9.0 mg/dL Normal 8.5-10.2 [facility] Comment on above: Order Comment: Speci men Type: BLOOD SPECIMEN Ordering Facility: [facility] Address: [address] [place] [address] Performed By: #### 2 4321-2 #### [facility] CLIA [id number] [address] [place] [address] [place] Chloride [Moles/Vol] 96 mmol/L Low 98-107 [facility] Comment on above: Order Comment: Speci men Type: BLOOD SPECIMEN Ordering Facility: [facility] Address: [address] [place] [address] Performed By: #### 2 4321-2 #### [facility] CLIA [id number] [address] [place] [address] [place] CO2 [Moles/Vol] 21 mmol/L Low 22-30 [facility] Comment on above: Order Comment: Speci men Type: BLOOD SPECIMEN Ordering Facility: [facility] Address: [address] [place] [address] Performed By: #### 2 4321-2 #### [facility] CLIA [id number] [address] [place] [address] [place] Creatinine [Mass/Vol] 0.83 mg/dL Normal 0.73-1.22 [facility] Comment on above: Order Comment: Speci men Type: BLOOD SPECIMEN Ordering Facility: [facility] Address: [address] [place] [address] Performed By: #### 2 4321-2 #### [facility] CLIA [id number] [address] [place] [address] [place] eGFRcr SerPlBld CKD-EPI 2020 87 mL/min/1.73m??? Normal >=60 [facility] Comment on above: Order Comment: Speci men Type: BLOOD SPECIMEN Ordering Facility: [facility] Address: [address] [place] [address] Result Comment: Hortensia mated Glomerular Filtration Rate (eGFR) is calculated using the 2020 CKD-EPI creatinine equation. This equation utilizes serum creatinine, sex, and age as parameters. The creatinine assay has traceable calibration to isotope dilution-mass spectrometry. Refer to KDIGO guidelines for clinical interpretation. In patients with unstable renal function, e.g. those with acute kidney injury, the eGFR may not accurately reflect actual GFR. Performed By: #### 2 4321-2 #### [facility] CLIA [id number] [address] [place] [address] [place] Glucose [Mass/Vol] 115 mg/dL High 74-99 [facility] Comment on above: Order Comment: Angel carrasquillo Type: BLOOD SPECIMEN Ordering Facility: [facility] Address: [address] [place] [address] Result Comment: The [place] Diabetes Association (ADA) provides guidance for cutoff values for fasting glucose and random glucose. The ADA defines fasting as no caloric intake for at least 8 hours. Fasting plasma glucose results between 100 to 125 mg/dL indicate increased risk for diabetes (prediabetes). Fasting plasma glucose results greater than or equal to 126 mg/dL meet the criteria for diagnosis of diabetes. In the absence of unequivocal hyperglycemia, results should be confirmed by repeat testing. In a patient with classic symptoms of hyperglycemia or hyperglycemic crisis, random plasma glucose results greater than or equal to 200 mg/dL meet the criteria for diagnosis of diabetes. Reference: Standards of Medical Care in Diabetes 2016, [place] Diabetes Association. Diabetes Care. 2016.39(Suppl 1). Performed By: #### 2 4321-2 #### [facility] CLIA [id number] [address] [place] [address] [place] Potassium [Moles/Vol] 4.1 mmol/L Normal 3.7-5.1 [facility] Comment on above: Order Comment: Angel men Type: BLOOD SPECIMEN Ordering Facility: [facility] Address: [address] [place] [address] Performed By: #### 2 4321-2 #### [facility] CLIA [id number] [address] [place] [address] [place] Sodium [Moles/Vol] 131 mmol/L Low 136-144 [facility] Comment on above: Order Comment: Angel carrasquillo Type: BLOOD SPECIMEN Ordering Facility: [facility] Address: [address] [place] [address] Performed By: #### 2 4321-2 #### [facility] CLIA [id number] [address] [place] [address] [place] Urea nitrogen [Mass/Vol] 11 mg/dL Normal 9-24 [facility] Comment on above: Order Comment: Speci men Type: BLOOD SPECIMEN Ordering Facility: [facility] Address: [address] [place] [address] Performed By: #### 2 4321-2 #### [facility] CLIA [id number] [address] [place] [address] [place] CBC panel Auto (Bld)on 01-31 Erythrocyte distribution width (RBC) [Ratio] 15.1 % High 11.5-15.0 [facility] Comment on above: Order Comment: Speci men Type: BLOOD SPECIMEN Ordering Facility: [facility] Address: [address] [place] [address] Performed By: #### 5 8410-2 #### [facility] CLIA [id number] [address] [place] [address] [place] Hematocrit (Bld) [Volume fraction] 35.4 % Low 39.0-51.0 [facility] Comment on above: Order Comment: Speci men Type: BLOOD SPECIMEN Ordering Facility: [facility] Address: [address] [place] [address] Performed By: #### 5 8410-2 #### [facility] CLIA [id number] [address] [place] [address] [place] Hemoglobin (Bld) [Mass/Vol] 11.5 g/dL Low 13.0-17.0 [facility] Comment on above: Order Comment: Speci men Type: BLOOD SPECIMEN Ordering Facility: [facility] Address: [address] [place] [address] Performed By: #### 5 8410-2 #### [facility] CLIA [id number] [address] [place] [address] [place] MCH (RBC) [Entitic mass] 33.1 pg Normal 26.0-34.0 [facility] Comment on above: Order Comment: Speci men Type: BLOOD SPECIMEN Ordering Facility: [facility] Address: [address] [place] [address] Performed By: #### 5 8410-2 #### [facility] CLIA [id number] [address] [place] [address] [place] MCHC (RBC) [Mass/Vol] 32.5 g/dL Normal 30.5-36.0 [facility] Comment on above: Order Comment: Speci men Type: BLOOD SPECIMEN Ordering Facility: [facility] Address: [address] [place] [address] Performed By: #### 5 8410-2 #### [facility] CLIA [id number] [address] [place] [address] [place] MCV (RBC) [Entitic vol] 102.0 fL High 80.0-100.0 [facility] Comment on above: Order Comment: Speci men Type: BLOOD SPECIMEN Ordering Facility: [facility] Address: [address] [place] [address] Performed By: #### 5 8410-2 #### [facility] CLIA [id number] [address] [place] [address] [place] Nucleated RBC (Bld) [#/Vol] 10*3/uL Normal <0.01 [facility] Comment on above: Order Comment: Speci men Type: BLOOD SPECIMEN Ordering Facility: [facility] Address: [address] [place] [address] Performed By: #### 5 8410-2 #### [facility] CLIA [id number] [address] [place] [address] [place] Platelet mean volume (Bld) [Entitic vol] 10.1 fL Normal 9.0-12.7 [facility] Comment on above: Order Comment: Speci men Type: BLOOD SPECIMEN Ordering Facility: [facility] Address: [address] [place] [address] Performed By: #### 5 8410-2 #### [facility] CLIA [id number] [address] [place] [address] [place] Platelets (Bld) [#/Vol] 235 10*3/uL Normal 150-400 [facility] Comment on above: Order Comment: Speci men Type: BLOOD SPECIMEN Ordering Facility: [facility] Address: [address] [place] [address] Performed By: #### 5 8410-2 #### [facility] CLIA [id number] [address] [place] [address] [place] RBC (Bld) [#/Vol] 3.47 10*6/uL Low 4.20-6.00 [facility] Comment on above: Order Comment: Speci men Type: BLOOD SPECIMEN Ordering Facility: [facility] Address: [address] [place] [address] Performed By: #### 5 8410-2 #### [facility] CLIA [id number] [address] [place] [address] [place] WBC (Bld) [#/Vol] 5.40 10*3/uL Normal 3.70-11.00 [facility] Comment on above: Order Comment: Speci men Type: BLOOD SPECIMEN Ordering Facility: [facility] Address: [address] [place] [address] Performed By: #### 5 8410-2 #### [facility] CLIA [id number] [address] [place] [address] [place] [facility] Natriuretic peptide.B prohormone N-Terminal [Mass/Vol] 2767 pg/mL High <450 [facility] Comment on above: Order Comment: Speci men Type: BLOOD SPECIMEN Ordering Facility: [facility] Address: [address] [place], [place] [address] Performed By: #### 3 3762-6 #### [facility] CLIA [id number] [address] [place] [address] [place] Absolute lymphocyte countOrd ered By: Jorge Hilton on 01-13-2025 Lymphocytes Auto (Unsp spec) [#/Vol] 1.15 10*3/uL 0.83-4.51 [facility] Anion gap in Serum or Plasma Ordered By: Jorge Hilton on 01-13-2025 Anion gap [Moles/Vol] 12 mmol/L - [facility] Automated lymphocyte count a s percentage of total leukocytesOrdered By: Jroge Hilton on 01-13-2025 Lymphocytes/100 WBC Auto (Unsp spec) 19.7 % - [facility] BUN/creatinine ratioOrdered By: Jorge Hilton on 01-13-2025 Urea nitrogen/Creatinine [Mass ratio] 16.5 mg/mg - [facility] Basic Metabolic Profile (BMP )on 01-13-2025 BUN/CRE 16.5 RATIO Normal - [facility] Comment on above: Performed By: #### L 100.0100, L500.2500 #### [facility] [address] [place], [address] Calcium [Mass/Vol] 9.2 mg/dL Normal 7.6-11.0 [facility] Comment on above: Performed By: #### L 100.0100, L500.2500 #### [facility] [address] [place], [address] Chloride [Moles/Vol] 93 mmol/L Low 98-108 [facility] Comment on above: Performed By: #### L 100.0100, L500.2500 #### [facility] [address] [place], [address] CO2 [Moles/Vol] 27.1 mmol/L Normal 21.0-32.0 [facility] Comment on above: Performed By: #### L 100.0100, L500.2500 #### [facility] [address] [place], [address] Creatinine [Mass/Vol] 0.87 mg/dL Normal 0.70-1.20 [facility] Comment on above: Performed By: #### L 100.0100, L500.2500 #### [facility] [address] [place], [address] GAP 12 Normal 5-15 [facility] Comment on above: Performed By: #### L 100.0100, L500.2500 #### [facility] [address] [place], [address] GFR/1.73 sq M.predicted among non-blacks MDRD (S/P/Bld) [Vol rate/Area] 86 mL/min/{1.73_m2} Normal >60 [facility] Comment on above: Result Comment: mL/m in/1.73m2 CKD-EPI Creatinine Equation (2020) Performed By: #### L 100.0100, L500.2500 #### [facility] [address] [place], [address] Glucose [Mass/Vol] 87 mg/dL Normal 70-99 [facility] Comment on above: Performed By: #### L 100.0100, L500.2500 #### [facility] [address] [place], [address] Potassium [Moles/Vol] 4.4 mmol/L Normal 3.3-5.1 [facility] Comment on above: Performed By: #### L 100.0100, L500.2500 #### [facility] [address] [place], [address] Sodium [Moles/Vol] 132 mmol/L Low 133-145 [facility] Comment on above: Performed By: #### L 100.0100, L500.2500 #### [facility] [address] [place], [address] Urea nitrogen [Mass/Vol] 14 mg/dL Normal 4-19 [facility] Comment on above: Performed By: #### L 100.0100, L500.2500 #### [facility] [address] [place], [address] Basophil percentageOrdered B y: Jorge Hilton on 01-13-2025 Basophils/100 WBC (Bld) 0.5 % 0-1 [facility] CBC W/Diff, Automatedon 12-27 Absolute Lymph 1.15 X10 3/uL Normal 0.83-4.51 [facility] Comment on above: Performed By: #### L 100.0100, L500.2500 #### [facility] [address] [place], [address] Absolute Neut 3.8 X10 3/uL Normal 2.0-7.7 [facility] Comment on above: Performed By: #### L 100.0100, L500.2500 #### [facility] [address] [place], [address] Basophils/100 WBC (Bld) 0.5 % Normal 0-1 [facility] Comment on above: Performed By: #### L 100.0100, L500.2500 #### [facility] [address] [place], [address] Eosinophils/100 WBC (Bld) 5.0 % Normal 0-5 [facility] Comment on above: Performed By: #### L 100.0100, L500.2500 #### [facility] [address] [place], [address] Erythrocyte distribution width (RBC) [Ratio] 14.7 % High 11.6-14.6 [facility] Comment on above: Performed By: #### L 100.0100, L500.2500 #### [facility] [address] [place], [address] Hematocrit (Bld) [Volume fraction] 34.1 % Low 40-54 [facility] Comment on above: Performed By: #### L 100.0100, L500.2500 #### [facility] [address] [place], [address] Hemoglobin (Bld) [Mass/Vol] 11.4 g/dL Low 13.0-16.5 [facility] Comment on above: Performed By: #### L 100.0100, L500.2500 #### [facility] [address] [place], [address] IG% 0.200 Normal 0.0-0.9 [facility] Comment on above: Result Comment: IG% - Immature Granulocytes (promyelocytes, myelocytes and metamyelocytes) > 1% indicates that a LEFT SHIFT is Present. Performed By: #### L 100.0100, L500.2500 #### [facility] [address] [place], [address] Lymphocytes/100 WBC (Bld) 19.7 % Normal 19-41 [facility] Comment on above: Performed By: #### L 100.0100, L500.2500 #### [facility] [address] [place], [address] MCH (RBC) [Entitic mass] 33.6 pg High 27.0-32.0 [facility] Comment on above: Performed By: #### L 100.0100, L500.2500 #### [facility] [address] [place], [address] MCHC (RBC) [Mass/Vol] 33.4 g/dL Normal 32-36 [facility] Comment on above: Performed By: #### L 100.0100, L500.2500 #### [facility] [address] [place], [address] MCV (RBC) [Entitic vol] 100.6 fL High 80-94 [facility] Comment on above: Performed By: #### L 100.0100, L500.2500 #### [facility] [address] [place], [address] Monocytes/100 WBC (Bld) 9.8 % Normal 0-10 [facility] Comment on above: Performed By: #### L 100.0100, L500.2500 #### [facility] [address] [place], [address] Neutrophils/100 WBC (Bld) 64.8 % Normal 47-70 [facility] Comment on above: Performed By: #### L 100.0100, L500.2500 #### [facility] [address] [place], [address] Nucleated RBC (Bld) [#/Vol] 0 10*3/uL Normal 0-5 [facility] Comment on above: Performed By: #### L 100.0100, L500.2500 #### [facility] [address] [place], [address] Platelet mean volume (Bld) [Entitic vol] 9.6 fL Normal 6.2-12.0 [facility] Comment on above: Performed By: #### L 100.0100, L500.2500 #### [facility] [address] [place], [address] Platelets (Bld) [#/Vol] 208 10*3/uL Normal 150-450 [facility] Comment on above: Performed By: #### L 100.0100, L500.2500 #### [facility] [address] [place], [address] RBC (Bld) [#/Vol] 3.39 10*6/uL Low 4.6-6.2 [facility] [facility] Comment on above: Performed By: #### L 100.0100, L500.2500 #### [facility] [address] [place], [address] RDW SD 54.2 fl High 35.1-43.9 [facility] Comment on above: Performed By: #### L 100.0100, L500.2500 #### [facility] [address] [place], [address] WBC (Bld) [#/Vol] 5.8 10*3/uL Normal 4.4-11.0 [facility] Comment on above: Performed By: #### L 100.0100, L500.2500 #### [facility] [address] [place], [address] Carbon dioxide, total [Moles /volume] in Central venous bloodOrdered By: Jorge Hilton on 01-13-2025 CO2 [Moles/Vol] 27.1 mmol/L 21.0-32.0 [facility] Chloride assayOrdered By: Shoshana Hilton on 01-13-2025 Chloride [Moles/Vol] 93 mmol/L Low 98-108 [facility] Eosinophil percentageOrdered By: Jorge Hilton on 01-13-2025 Eosinophils/100 WBC (Bld) 5.0 % 0-5 [facility] Erythrocyte distribution wid th ratioOrdered By: Jorge Hilton on 01-13-2025 Erythrocyte distribution width (RBC) [Ratio] 14.7 % High 11.6-14.6 [facility] Erythrocyte distribution wid th standard deviationOrdered By: Jorge Hilton on 01-13-2025 Erythrocyte distribution width (RBC) [Ratio] 54.2 fl High 35.1-43.9 [facility] Glomerular filtration rate ( GFR) estimation/1.73 sq m using serum, plasma, or whole bOrdered By: Jorge Hilton on 01-13-2025 GFR/1.73 sq M.predicted among non-blacks MDRD (S/P/Bld) [Vol rate/Area] 86 mL/min/{1.73_m2} >60 [facility] Hematocrit Auto (Bld) [Volum e fraction]Ordered By: Jorge Hilton on 01-13-2025 Hematocrit (Bld) [Volume fraction] 34.1 % Low 40-54 [facility] Hemoglobin measurementOrdere d By: Jorge Hilton on 01-13-2025 Hemoglobin (Bld) [Mass/Vol] 11.4 g/dL Low 13.0-16.5 [facility] Immature granulocytes/100 WB C Auto (Bld)Ordered By: Jorge Hilton on 01-13-2025 Immature granulocytes/100 WBC (Bld) 0.200 % 0.0-0.9 [facility] MCV (mean corpuscular volume ) determinationOrdered By: Jorge Hilton on 01-13-2025 MCV (RBC) [Entitic vol] 100.6 fL High 80-94 [facility] Mean corpuscular hemoglobin (MCH) determinationOrdered By: Jorge Hilton on 01-13-2025 MCH (RBC) [Entitic mass] 33.6 pg High 27.0-32.0 [facility] Monocyte percentageOrdered B y: Jorge Hilton on 01-13-2025 Monocytes/100 WBC (Bld) 9.8 % 0-10 [facility] Neutrophil percentageOrdered By: Jorge Hilton on 01-13-2025 Neutrophils/100 WBC (Bld) 64.8 % 47-70 [facility] Platelet countOrdered By: Shoshana Hilton on 01-13-2025 Platelets (Bld) [#/Vol] 208 10*3/uL 150-450 [facility] Potassium measurement (mass/ volume)Ordered By: Jorge Hilton on 01-13-2025 Potassium (Unsp spec) [Mass/Vol] 4.4 mmol/L 3.3-5.1 [facility] RBC Auto (Bld) [#/Vol]Ordere d By: Jorge Hilton on 01-13-2025 RBC (Bld) [#/Vol] 3.39 10*6/uL Low 4.6-6.2 [facility] Serum creatinine measurement (mass/volume)Ordered By: Jorge Hilton on 01-13-2025 Creatinine [Mass/Vol] 0.87 mg/dL 0.70-1.20 [facility] Serum glucose measurement (m ass/volume)Ordered By: Jorge Hilton on 01-13-2025 Glucose [Mass/Vol] 87 mg/dL 70-99 [facility] Serum or plasma calcium lenka urement (mass/volume)Ordered By: Jorge Hilton on 01-13-2025 Calcium [Mass/Vol] 9.2 mg/dL 7.6-11.0 [facility] Serum or plasma urea nitroge n measurement (mass/volume)Ordered By: Jorge Hilton on 01-13-2025 Urea nitrogen [Mass/Vol] 14 mg/dL 4-19 [facility] Sodium levelOrdered By: Jorge Hilton on 01-13-2025 Sodium [Moles/Vol] 132 mmol/L Low 133-145 [facility] White blood cell (WBC) count Ordered By: Jorge Hilton on 01-13-2025 WBC (Bld) [#/Vol] 5.8 10*3/uL 4.4-11.0 [facility] Brain/Head without Contrasto n 01-08-2025 Brain/Head without Contrast [facility] Imaging Services [address] [place] [address] [id number] Brain/Head without Contrast MR#: [id number] Acct: [id number] Name: BRYCE ANN Rep #: [id number] : 1940 M 84 From: Rory Lr MD PCP: Dr. Jorge Hilton MD Status: [facility] Study: Brain/Head without Contrast Date of Exam: 12/27 08/20 Exam# [id number] Ordering Dr: Tran Stewart MD PROCEDURE: BRAIN/HEAD WITHOUT CONTRAST 01/08/2025 REASON FOR EXAM: FALL TECHNIQUE: BRAIN/HEAD WITHOUT CONTRAST Coronal and Sagittal reconstruction series were provided. One or more dose reduction techniques were used (e.g., Automated exposure control, adjustment of the mA and/or kV according to patient size, use of iterative reconstruction technique. RADIATION DOSE SUMMARY: CTDlvol: 44 mGy DLP: 829 mGycm COMPARISON: 01/09/2024. FINDINGS: Moderate global parenchymal atrophy. Periventricular white matter hypodensity likely representing chronic microvascular ischemia. No evidence of acute hemorrhage or infarction. No extra-axial blood or fluid collections. The paranasal sinuses and mastoid air cells are clear. The calvarial vault and skull base are intact. CT/Brain/Head without Contrast IMPRESSION: No acute intracranial abnormality. Reading Location: [facility] CC: Dr. Tran Stewart MD; Dr. Jorge Hilton MD Java Programming Professor: Signed Normal [facility] Elbow min 3 Viewson 01-09-20 Elbow min 3 Views [facility] Imaging Services [address] [place] [address] Elbow min 3 Views MR#: [id number] Acct: [id number] Name: BRYCE ANN Rep #: [id number] : 1940 M 84 From: Miguelito Steen MD PCP: Dr. Jorge Hilton MD Status: REG ER Study: Elbow min 3 Views Date of Exam: 01/08/25 Exam# [id number] Ordering Dr: Tran Stewart MD PROCEDURE: RIGHT FOREARM 2 VIEWS; RIGHT ELBOW MIN 3 VIEWS 01/08/2025 REASON FOR EXAM: FALL TECHNIQUE: Frontal, lateral and oblique views of the right forearm and elbow COMPARISON: None. FINDINGS: No acute fracture or dislocation. Alignment is anatomic. Preserved joint spaces. No elbow joint effusion. Qualitative osteopenia. No marked soft tissue swelling. Atherosclerotic vascular calcifications. RAD/Elbow min 3 Views IMPRESSION: No acute fracture or dislocation. Reading Location: [facility] CC: Dr. Tran Stewart MD; Dr. Jorge Hilton MD Java Programming Professor: Signed Normal [facility] Emergency Department Summary on 01-08-2025 Emergency Department Summary [facility] Medical Records Department [address] [place] [address] Emergency Department Summary 01/08/25 MR#: [id number] Acct: [id number] Name: BRYCE ANN Rep #: [id number] : 1940 84 From: Tran Stewart MD PCP: Dr. Jorge Hilton MD Status:REG ER Location: ED HPI HPI - Fall History of Present Illness Chief Complaint: Fall Narrative Narrative: Patient is a 84-year-old male presenting to emergency department for a fall. Patient has extensive past medical history as below. Patient states that he was getting his lunch out of the fridge and his feet got tangled up and he fell on his right side. Denies hitting his head or any loss of consciousness. Denies any neck or back pain. He was unable to get up by himself so he called his daughter. He was able to walk afterwards. He is on Xarelto. She brought him here to be evaluated. He denied any chest pain, shortness of breath, palpitations, lightheadedness or dizziness before or after the fall. [place] a little jittery intermittently today but nothing out of the normal for him. States he is very clumsy and reports that he falls a lot. Patient endorses he has skin tear to his right arm and right hip pain. 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 Secondary adrenal insufficiency Vitamin D deficiency Chronic edema Wears glasses Former smoker History of stress test History of heart attack Anemia Coronary artery disease Atherosclerotic heart disease of [place] coronary artery without angina pectoris BPH (benign prostatic hyperplasia) GERD (gastroesophageal reflux disease) Lumbar spinal stenosis Atrial fibrillation PAT (paroxysmal atrial tachycardia) SVT (supraventricular tachycardia) Rheumatoid arthritis Home Medications ???Medication ???Instructions ???Recorded ???Last Taken ???Type tamsulosin 0.4 mg capsule 0.4 mg PO DAILY@1800 Retention 05/31/23 History finasteride 1 mg tablet 5 mg PO DAILY prostate 12/30/20 History golimumab 12.5 mg/mL intravenous 12.5 mg IV .[id number] injection 08/1805/29/23 History solution (Simponi ARIA) gabapentin 300 mg capsule 300 mg PO TID PRN PRN NERVE PAIN 0 10/20/22 05/31/23 History trazodone 100 mg tablet 100 mg PO QHS Check with primary 0 11/14/22 05/31/23 History doctor acetaminophen 500 mg tablet 1,000 mg (2 x 500 mg) PO Q8 #0 tab s 01/24/23 06/01/23 Rx denosumab 60 mg/mL subcutaneous 60 mg subcut [id number] #1 mL 04/11/23 Rx syringe (Prolia) methotrexate sodium 2.5 mg tablet 20 mg PO QWEEK 06/01/23 05/28/23 History sulfasalazine 500 mg 0.5 g PO Q12H 06/01/23 05/31/23 Hi story tablet,delayed release ascorbic acid (vitamin C) 1,000 mg 1,000 mg PO QDAY 10/23/24 Unknow n History capsule furosemide 40 mg tablet 40 mg PO QAM #90 tabs 10/23/24 Unk nown Rx hydrocodone 7.5 mg-acetaminophen 1 tab PO BID pain 10/23/24 Unknown History 325 mg tablet mecobalamin (vitamin B12) 2,500 2,500 mcg PO DAILY 10/23/24 Unknow n History mcg chewable tablet mirtazapine 15 mg tablet 7.5 mg PO QHS 10/23/24 Unknown His tory oxybutynin chloride 10 mg 10 mg PO QDAY 10/23/24 Unknown His tory tablet,extended release 24 hr rivaroxaban 15 mg tablet (Xarelto) 15 mg PO QDAY 90 days #90 tabs 0 10/23/24 Unknown Rx spironolactone 25 mg tablet 25 mg PO DAILY water pill #90 tabs 10/23/24 Unknown Rx turmeric root extract 500 mg 500 mg PO QDAY 10/23/24 Unknown Hi story capsule atorvastatin 40 mg tablet (Lipitor) 40 mg PO QHS Cholesterol #90 ta bs 12/09/24 Unknown Rx polysaccharide iron complex 150 mg 150 mg PO QDAY 90 days #90 caps 12/13/24 Unknown Rx iron capsule (Ferrex) amiodarone 200 mg tablet 200 mg PO DAILY heart rate #90 tab s 12/17/24 Unknown Rx Allergy/AdvReac Type Severity Reaction Status Date / Time No Known Allergies Allergy Verified 01/08/25 15:46 Family History Father CVA (cerebral vascular accident) Brother CAD (coronary artery disease) CABG X 3 Mother CVA (cerebral vascular accident) Grandfather Cancer prostate Surgical History History of cardiac catheterization History of coronary artery stent placement Hx of colectomy Hx of transurethral resection of prostate Hx of laminectomy His (more content not included)... Normal [facility] Forearm 2 Viewson 01-08-2025 Forearm 2 Views [facility] Imaging Services [address] [place], [place] [id number] Forearm 2 Views MR#: [id number] Acct: [id number] Name: BRYCE ANN Rep #: [id number] : 1940 M 84 From: Miguelito Steen MD PCP: Dr. Jorge Hilton MD Status: REG ER Study: Forearm 2 Views Date of Exam: 01/08/25 Exam# [id number] Ordering Dr: Tran Stewart MD PROCEDURE: RIGHT FOREARM 2 VIEWS; RIGHT ELBOW MIN 3 VIEWS 01/08/2025 REASON FOR EXAM: FALL TECHNIQUE: Frontal, lateral and oblique views of the right forearm and elbow COMPARISON: None. FINDINGS: No acute fracture or dislocation. Alignment is anatomic. Preserved joint spaces. No elbow joint effusion. Qualitative osteopenia. No marked soft tissue swelling. Atherosclerotic vascular calcifications. RAD/Forearm 2 Views IMPRESSION: No acute fracture or dislocation. Reading Location: [facility] CC: Dr. Tran Stewart MD; Dr. Jorge Hilton MD Java Programming Professor: Signed Normal [facility] HIP, UNI W/ Pelvis 2-3 Views on 01-08-2025 HIP, UNI W/ Pelvis 2-3 Views [facility] Imaging Services [address] [place], [place] [id number] HIP, UNI W/ Pelvis 2-3 Views MR#: [id number] Acct: [id number] Name: BRYCE ANN Rep #: [id number] : 1940 M 84 From: Miguelito Steen MD PCP: Dr. Jorge Hilton MD Status: REG ER Study: HIP, UNI W/ Pelvis 2-3 Views Date of Exam: Exam# [id number] Ordering Dr: Tran Stewart MD PROCEDURE: RIGHT HIP, UNI W/ PELVIS 2-3 VIEWS 01/08/2025 REASON FOR EXAM: HIP PAIN, FALL TECHNIQUE: RIGHT HIP, UNI W/ PELVIS 2-3 VIEWS COMPARISON: 05/11/2021 FINDINGS: No evidence of acute fracture or dislocation. Bilateral hip joints are preserved with mild degenerative arthrosis. Chronic compression fracture deformity of L5 vertebra with kyphoplasty bone cement. Qualitative osteopenia. Grossly unremarkable soft tissues. Atherosclerotic vascular calcifications. RAD/HIP, UNI W/ Pelvis 2-3 Views IMPRESSION: No evidence of acute fracture or dislocation. Reading Location: [facility] CC: Dr. Tran Stewart MD; Dr. Jorge Hilton MD Java Programming Professor: Signed Normal [facility] Spine Cervical without Contr ason 01-08-2025 Spine Cervical without Contras [facility] Imaging Services [address] [place], [place] [id number] Spine Cervical without Contras MR#: [id number] Acct: [id number] Name: BRYCE ANN Rep #: [id number] : 1940 84 From: Rory Lr MD PCP: Dr. Jorge Hilton MD Status: REG ER Study: Spine Cervical without Contras Date of Exam: 0 01/08/25 Exam# [id number] Ordering Dr: Tran Stewart MD PROCEDURE: SPINE CERVICAL WITHOUT CONTRAS 01/08/2025 REASON FOR EXAM: FALL TECHNIQUE: SPINE CERVICAL WITHOUT CONTRAS Coronal and Sagittal reconstruction series were provided. One or more dose reduction techniques were used (e.g., Automated exposure control, adjustment of the mA and/or kV according to patient size, use of iterative reconstruction technique. RADIATION DOSE SUMMARY: CTDlvol: 44 mGy DLP: 1159 mGycm COMPARISON: 01/25/2022 radiograph. FINDINGS: No evidence of acute fracture or dislocation. Severe degenerative changes of the cervical spine. Grade 1 anterolisthesis of C7 on T1. Diffuse osseous demineralization. No acute soft tissue abnormalities. Of the lung apices are clear. CT/Spine Cervical without Contras IMPRESSION: No acute osseous abnormality. Severe spondylosis. Spondylolisthesis. Reading Location: [id number] CC: Dr. Tran Stewart MD; Dr. Jorge Hilton MD Java Programming Professor: Signed [facility] 01-02-2025 CNPN Telephone (AKCATeTelemetry) BRYCE ANN ([id number]) 1940 M Date Time Provider Department 01/02/25 MEGHANA FLOR During your visit today, we recorded the following information about you: Ayesha Way 01/02/2025 12:05 PM Signed Schedule [facility] on 02/10/2025 with Ayaka Meza RN 01/03/2025 11:45 AM Addendum Spoke with Bryce Ann and they are agreeable to procedure date. Relayed instructions, but pt had difficulty understanding. Called daughter Roni and LVM requesting she call back to reinforce instructions. When she calls back, please relay instructions. Please also confirm that pt no longer takes Plavix or metoprolol. Thank you! You have been scheduled for a TAVR Scans AND Heart Cath on Monday02/10/[address] Rosenthal. Instructions: Your arrival time will be 8 am TAVR Scans on 02/10/25 Arrive at the Heart and Vascular Center at 0800 Scan is scheduled for 0900 Heart Cath to follow Payroll Officer will call you between 2-5 pm the day before your procedure to notify you of your assigned arrival time. If your procedure date is on a Monday, label cutter will call the Monday afternoon prior to your procedure. If your procedure date follows a federal holiday, label cutter will call the afternoon prior to the holiday. Please report to the Heart AND Vascular Entrance at [facility] at your assigned time. [facility] address: [address], [place] [address] The Heart AND Vascular entrance is on the 1st floor and is across the street from a tall glass building. Please park in the deck next to the glass building. You may have your usual food the day prior to your procedure. Please increase your water intake the day prior to your procedure. After midnight you should not eat or drink, but you may drink water to stay hydrated. Medications: With a sip of water on the morning of your procedure, take: Aspirin 325mg (Or you may take Baby Aspirin 81mg x4 tablets) Also take amiodarone - if your regular morning medication(s) If you take diuretic medication, please hold these the morning of procedure Labs: Please complete no later than 2 business days prior, but within 30 days of your procedure at ANY Outpatient [facility] For locations and lab hours, please visit: [email or web address] Example Hospital Locations: [facility], [facility], [facility], [place], etc. Example Health AND Wellness Centers: [place], [place], or [place] Most patients will go home the same day. You must have someone drive you home when you are released from the hospital and you are not to be alone the first evening. If you have an intervention, you may need to stay overnight for observation. If you have any questions or concerns, you may reply to this message via My Chart ~or~ contact our office at [phone] - Option #3 Nursing. ELROY Calvillo Jessica, LPN 01/06/2025 11:49 AM Signed Roni called in and was provided with procedure date and instructions. She voiced understanding. SMA Guevara Stacey, RN 02/05/2025 9:16 AM Signed Pt calls asking if he should fast. Instructions reviewed. Pt voices understanding. Pt denies taking plavix/clopidogrel. He is agreeable to ASA 325 mg am of the cath along with his amiodarone. Aki Laughlin RN Allergies As of Date: 01/02/2025 (No Known Allergies) Date Reviewed: 12/27/2022 Reviewed by: Meghana Alberto MA - Fully Assessed Reason for Visit: Preparations For Procedures [899] Cmt: Cath Prescriptions as of 02/05/2025 - iv contrast (will be provided with radiology test) CTA ABD/PEL - No IV access, insert saline lock prior to the sedation, infusion, injection for imaging exam. Discontinue saline lock post exam. If Pt. has a central line or IVAD, may access for administration according to line specific nursing protocol. Once exam is complete flush line and de-access according to line specific nursing protocol in the CT contrast administration guidelines link. - metOLazone (ZAROXOLYN) 2.5 mg tablet Take 2.5 mg by mouth Once Weekly with Dialysis. - bacitracin 500 unit/gram ointment APPLY TO THE AFFECTED AREA(S) DAILY - finasteride (PROSCAR) 5 mg tablet Take 5 mg by mouth once daily. - hydrOXYchloroQUINE (PLAQUENIL) 200 mg tablet Take by mouth once daily. - predniSONE (DELTASONE) 5 mg tablet Take 5 mg by mouth once daily. - acetaminophen (TYLENOL) 325 mg tablet Take 2 tablets by mouth every 4 hours as needed. - tamsulosin (FLOMAX) 0.4 mg Take 1 capsule by mouth daily at bedtime. - atorvastatin (LIPITOR) 40 mg tablet Take 1 tablet by mouth daily at bedtime. - metoprolol succinate ER (TOPROL XL) 25 mg 24 hr tablet Take 0.5 tablets by mouth once daily. - apixaban (ELIQUIS) 5 mg tab(s) Take 1 tablet by mouth twi (more content not included)... Normal [facility] BRYCE ANN ([id number]) 1940 M Date Time Provider Department 12/31/24 MEGHANA FLOR During your visit today, we recorded the following information about you: Meghana Flor APRN.CNP 12/31/2024 12:43 PM Signed ----- Message from Ximena Page sent at 12/31/2024 11:27 AM EDT ----- Referral from [facility]/Radha ANNA #[id number] Non-rhumatic aortic valve stenosis Referral scanned to chart Meghana Flor APRN.CNP 01/02/2025 11:52 AM Addendum Referral reviewed. Saw Dr. Mirza 10/23/24 ([place]). PMHX includes CAD (PCI to OM2 with GAGE. Unsuccessful PCI of SEWER DIGGER of LAD 2020), [place], anemia, GERD, PAF on Xarelto, paroxysmal atrial tachycardia, SVT, RA. Last echo had been 2022, so repeat surveillance ECHO was ordered by Dr. Mirza. ECHO report requested and received. ECHO 12/24/24 EF 40%, apical akinesis to dyskinesis, cannot exclude small LV apical thrombus, recommend cardiac MRI or NONI for further eval? 2+MR, AVS LEYLA 0.87, mean peak gradient 30, mild AI I spoke with pt, he endorses shortness of breath with stairs. Denies chest pain, palp, lh/dizzy, syncope. + BLE edema for years. Is he on ASA, plavix, xarelto, and lasix. He's not sure about his other meds. He confirms he has never been on dialysis Please obtain bloodwork first or second week of January - CBC, BMP, NT Pro BNP - non fasting, any [facility] Please fax dental clearance to Dr. Paul Vidal ([facility]) Please schedule for TAVR Scans on 02/10/25 - Arrive at the Heart and Vascular Center at 0800 - Scan is scheduled for 0900 - Plan for left heart catheterization with Dr. Monae once TAVR scan is competed - Hold your lasix the day of your scans - Hold your OAC (Xarelto) 48 hours prior to cath, Last dose on 02/07/25 You are scheduled for TAVR Clinic visit Feb [address] Monae at 1030 - arrival 1000 Please obtain copy of his most recent office visit with DR. NARGIS rodriguez. Meghana Flor APRN.Anayeli Cao RN 01/02/2025 9:31 AM Addendum [facility] Echo report from 12/24/24 obtained and being scanned into Epic. Miscellaneous Document - Echocardiogram / [facility] (01/01/2025) Anayeli Gonzalez RN Allergies As of Date: 12/31/2024 (No Known Allergies) Date Reviewed: 12/27/2022 Reviewed by: Meghana Alberto MA - Fully Assessed Primary Visit Diagnosis:Encounter for preprocedural cardiovascular examination [Z01.810] Other Visit Diagnoses:Dyspnea on exertion [R06.09] Aortic valve stenosis, etiology of cardiac valve disease unspecified [I35.0] Order(s):BASIC METABOLIC PANEL [SQBMP] Order #: [id number] FUTURE COMPLETE BLOOD COUNT [SQCBC] Order #: [id number] FUTURE CTA ABD/PEL W IVCON [9545437] Order #: [id number] FUTURE iv contrast (will be provided with radiology test)CTA ABD/PEL - No IV access, insert saline lock prior to the sedation, infusion, injection for imaging exam. Discontinue saline lock post exam. If Pt. has a central line or IVAD, may access for administration according to line specific nursing protocol. Once exam is complete flush line and de-access according to line specific nursing protocol in the CT contrast administration guidelines link.Disp: 1 eachRfl: 0 CTA CHEST (GATED) WO/W IVCON [1113768] Order #: [id number] FUTURE NT PRO BNP [SQNTBNP] Order #: [id number] FUTURE CARDIAC PATIENT ATTENDANT ORDER [4602815] Order #: [id number]: 1 Prescriptions as of 01/02/2025 - iv contrast (will be provided with radiology test) CTA ABD/PEL - No IV access, insert saline lock prior to the sedation, infusion, injection for imaging exam. Discontinue saline lock post exam. If Pt. has a central line or IVAD, may access for administration according to line specific nursing protocol. Once exam is complete flush line and de-access according to line specific nursing protocol in the CT contrast administration guidelines link. - metOLazone (ZAROXOLYN) 2.5 mg tablet Take 2.5 mg by mouth Once Weekly with Dialysis. - bacitracin 500 unit/gram ointment APPLY TO THE AFFECTED AREA(S) DAILY - finasteride (PROSCAR) 5 mg tablet Take 5 mg by mouth once daily. - hydrOXYchloroQUINE (PLAQUENIL) 200 mg tablet Take by mouth once daily. - predniSONE (DELTASONE) 5 mg tablet Take 5 mg by mouth once daily. - acetaminophen (TYLENOL) 325 mg tablet Take 2 tablets by mouth every 4 hours as needed. - tamsulosin (FLOMAX) 0.4 mg Take 1 capsule by mouth daily at bedtime. - atorvastatin (LIPITOR) 40 mg tablet Take 1 tablet by mouth daily at bedtime. - metoprolol succinate ER (TOPROL XL) 25 mg 24 hr tablet Take 0.5 tablets by mouth once daily. - apixaban (ELIQUIS) 5 mg tab(s) Take 1 tablet by mouth twice daily. - sulfaSALAzine EC (AZULFIDINE EN) 500 mg EC tablet (more content not included)... Normal [facility] Echo Complete W/ Contraston 12-24-2024 Echo Complete W/ Contrast [facility] [address] [place] [address] Echo Complete W/ Contrast 12/24/24 0910 MR#: [id number] Acct: [id number] Name: MARISSACONG OCAMPOSoledad Huber Rep #: [id number] : 1940 84 From: Jem Mirza MD Attending Dr: Dr. Jem Mirza MD Status: REG I Ordering Dr: Jem Mirza MD Date: 12/24/24 Location: [facility] Sex: M C Admitted: Reason For Study Reason For Study: PRE OP- Procedure This was a 2D Doppler, Color Flow transthoracic echocardiogram. Contrast injection was performed. Exam performed in department. Left Ventricle Normal size and thickness. Apical akinesis to dyskinesis. Estimated LVEF 40%. Grade 2 diastolic function with elevated left atrial filling pressures. Cannot exclude small LV apical thrombus. Right Ventricle Normal right ventricle. Atria The left atrium is moderately enlarged. The right atrium is mildly enlarged. Mitral Valve Moderate (2+) mitral valve insufficiency. Tricuspid Valve Mild tricuspid valve insufficiency. Estimated RVSP 53 mmHg. Aortic Valve Moderately calcified aortic valve. Severe aortic valve stenosis. Planimetered aortic valve area 0.87 cm??. Mean peak gradient 30 mmHg. Mild aortic valve regurgitation. Pulmonic Valve The pulmonic valve is not well visualized. Trivial pulmonic valve insufficiency. Great Vessels Normal sized aortic root. Pericardium/Pleural Trivial pericardial effusion. Medication 22 gauge I.V. with prn adaptor inserted into left arm. Diluted definity 3ml given slow IV push to enhance endocardial definition. MMode/2D Measurements Calculations LVIDd: 4.8 cm IVSd: 1.0 cm LVOT diam: 1.9 cm LVIDs: 3.2 cm LVPWd: 1.1 cm RVDd: 3.8 cm FS: 32.6 % LVOT area: 3.0 cm2 LA dimension: 4.6 cm asc Aorta Diam: 3.8 cm LAV(MOD-bp): 55.6 ml LAV(MOD-bp) Indexed: 34.8 ml/m2 LAV(MOD-sp2): 59.7 ml LAV(MOD-sp4): 49.0 ml SV(MOD-sp4): 60.1 ml LVAd ap4: 40.6 cm2 LVAd ap2: 35.2 cm2 LVLd ap4: 9.8 cm LVLd ap2: 9.5 cm SI(MOD-sp4): 37.6 ml/m2 EDV(MOD-sp4): 136.3 ml EDV(MOD-sp2): 104.9 ml EDV(sp4-el): 143.6 ml EDV(sp2-el): 110.0 ml LVAs ap4: 29.9 cm2 LVAs ap2: 25.5 cm2 LVLs ap4: 9.2 cm LVLs ap2: 9.1 cm ESV(MOD-sp4): 76.2 ml ESV(MOD-sp2): 58.0 ml ESV(sp4-el): 82.7 ml ESV(sp2-el): 60.8 ml EF(MOD-sp4): 44.1 % EF(MOD-sp2): 44.7 % EF(sp4-el): 42.4 % SV(MOD-sp2): 46.9 ml SV(sp4-el): 60.9 ml Ao sinus diam: 3.6 cm SI(MOD-sp2): 29.3 ml/m2 Ao ST Junction: 3.0 cm Aortic Valve Planimetry: 0.87 cm2 LA A4 area: 20.5 cm2 LA dimension(2D): 4.7 cm RA A4 area: 16.7 cm2 TAPSE: 1.8 cm Time Measurements MV dec time: 0.21 sec Doppler Measurements Calculations MV E max ashlee: 116.1 cm/sec Lat Peak E' Ashlee: 6.8 cm/sec Med Peak E' Ashlee: 5.3 cm/sec MV A max ashlee: 65.1 cm/sec E/E' lat: 17.0 E/E' med: 21.8 MV E/A: 1.8 MV V2 max: 130.4 cm/sec Ao V2 max: 358.6 cm/sec MV max P.8 mmHg MV dec slope: 541.8 cm/sec2 Ao max P.5 mmHg MV V2 mean: 62.7 cm/sec Ao V2 mean: 260.5 cm/sec MV mean P.0 mmHg Ao mean P.9 mmHg MV V2 VTI: 42.6 cm Ao V2 VTI: 106.3 cm AV (velocity ratio): 0.23 MVA(VTI): 1.7 cm2 LEYLA(I,D): 0.69 cm2 LEYLA(V,D): 0.71 cm2 LV V1 max: 85.6 cm/sec SV(LVOT): 73.1 ml PA V2 max: 96.0 cm/sec LV V1 max P.9 mmHg LV V1 mean P.7 mmHg LV V1 mean: 60.8 cm/sec LV V1 VTI: 24.6 cm TR max ashlee: 309.0 cm/sec TR max P.2 mmHg ECHO/Echo Complete W/ Contrast Interpretation Summary Apical akinesis to dyskinesis. Estimated LVEF 40%. Grade 2 diastolic function with elevated left atrial filling pressures. Cannot exclude small LV apical thrombus. Recommend cardiac MRI or NONI for further evaluation. Moderately dilated left atrium. Mildly dilated right atrium. Moderate (2+) mitral valve insufficiency. Mild tricuspid valve insufficiency. Estimated RVSP 53 mmHg. Moderately calcified aortic valve. Severe aortic valve stenosis. Planimetered aortic valve area 0.87 cm??. Mean peak gradient 30 mmHg. Mild aortic valve regurgitation. (more content not included)... Normal [facility] Echocardiogram study reportO rdered By: Jem Mirza on 12-24-2024 Study report [facility] Work Phone: MR/Danika 12-24-2024 MR/TYRA [facility] Medical Records Department [address] [place], [place] [address] [address] PAT - Anesthesia 12/24/24 1523 MR#: [id number] Acct: [id number] Name: BRYCE ANN Rep #: [id number] : 1940 84 From: Ciro Holman MD PCP: Dr. 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 When Was Last Pacemaker Check QUESTION #4 FULL TEXT: You/Your Family Experience fever (hyperthermia) with Anesthesia Last Oral Intake Last Oral intake: Last Oral Intake NPO since Meds taken in AM with sips of water? Meds patient instructed to take am of surgery PONV PONV - asphalt mixer: PONV - asphalt mixer Female No 12/11/24 09:26 HX of Motion Sickness No 12/11/24 09:26 HX of N/V After Surgery No 12/11/24 09:26 Non-Smoker Yes 12/11/24 09:26 Duration of Surgery greater Yes 12/11/24 09:26 than 60 minutes Number of Risk Factors 2 12/11/24 09:26 PONV Score Moderate Risk 12/11/24 09:26 Height Weight Height Weight: Anesthesia: Height Weight Height 5 ft 1 in 12/12/24 11:45 Respiratory Assessment Respiratory Assessment - asphalt mixer: Respiratory Tract Infection Hx - asphalt mixer Hx Respiratory Tract Infection No 12/11/24 09:26 STOP Sleep Apnea STOP Sleep Apnea - asphalt mixer: STOP Sleep Apnea - asphalt mixer Hx Hypertension No 12/11/24 09:26 Hx Sleep Apnea No 12/11/24 09:26 CPAP No 08/19/24 11:30 BIPAP No 08/19/24 11:30 Do you snore loudly (louder No 12/11/24 09:26 than talking or can be heard Do you often feel tired/ No 12/11/24 09:26 fatigued/ sleepy during daytime? Has anyone observed you stop No 12/11/24 09:26 breathing during sleep? STOP Results Negative 12/11/24 09:26 QUESTION #5 FULL TEXT : Do you snore loudly (louder than talking or can be heard through closed doors)? Tobacco Use History Tobacco Use History - asphalt mixer: Tobacco Use History - asphalt mixer Tobacco Use Smoking Status Former smoker 12/11/24 09:26 Hx Tobacco Use No 12/11/24 09:26 Years Smoking Packs Smoked per Day Smoking Cessation Date was No - quit smoking greater 12/11/24 09:26 within the last 15 years than 15 years ago Hx Smoking Cessation Date 05/29/68 12/11/24 09:26 Hx Smoking Cessation Counseling Hematologic Medial History Hematologic Hx - asphalt mixer: Hematologic Medical Hx - sole scraper Hx of Blood Transfusion No 12/11/24 09:26 Hx of Transfusion in last 3 No 12/11/24 09:26 Months Date of Last Transfusion (if within last 3 months) Ever experience any problems No 12/11/24 09:26 with transfusion(s)? Specify any problems Hx of Preganancy in last 3 N/A 12/11/24 09:26 Months Nurse Filling Out Transfusion [facility] 12/11/24 09:26 Questions: Date: 12/11/24 12/11/24 09:26 Time: 09:39 12/11/24 09:26 Patient unable to answer at this time (ie. confused, unrespo /Reproduction History /Reproductive History - asphalt mixer: /Reproductive Hx- asphalt mixer Hx Now No 12/11/24 09:26 Gestational Age (in weeks): EDC: Hx Hx Para Hx Section SAB No 12/11/24 09:26 Active Medications Active Medications: Current Medications Generic Name Dose Route Start Last Admin Trade Name Freq PRN Reason Stop Dose Admin Acetaminophen 1,000 mg 12/25/24 07:30 Acetaminophen 500 Mg Tablet PO 12/25/24 07:31 PREOP ONE Dexamethasone Sodium Phosphate 10 mg 12/25/24 07:30 Dexamethasone 10 Mg/Ml Vial IV 12/25/24 07:31 INTRAOP ONE Gabapentin 600 mg 12/25/24 07:30 Gabapentin 600 Mg Tablet PO 12/25/24 07:31 PREOP ONE Cefazolin Sodium 2 gm/ Sodium 110 mls @ 150 mls/hr 12/25/24 07:30 Chloride IV 12/25/24 08:13 INTRAOP ONE Tranexamic Acid 1,000 mg/ 110 mls @ 660 mls/hr 12/25/24 07:30 Sodium Chloride IV 12/25/24 07:39 INTRAOP ONE Tranexamic Acid 1,000 mg/ 110 mls @ 660 mls/hr 12/25/24 07:30 Sodium Chloride IV 12/25/24 07:39 INTRAOP ONE Lactated Ringer's 1,000 mls @ 1 (more content not included)... Normal [facility] Fructosamineon 12-19-2024 FRUCTOSAMINE 257 umol/L Normal 0-285 [facility] Comment on above: Result Comment: Publ ished reference interval for apparently healthy subjects between age 20 and 60 is 205 - 285 umol/L and in a poorly controlled diabetic population is 228 - 563 umol/L with a mean of 396 umol/L. Performed at: - [facility] [id number] Back Shoe Cutter: Adonay Tucker PhD, Phone: [phone] Performed By: #### L 501.5200, BTSPAT, L100.0100, L501.9985, M100.651, L300.3900, L500.2500, L300.4310, L3400.0100 ####[facility] [address] [place], [address] MR/PATHamida 12-18-2024 MR/PAT.TONI [facility] Medical Records Department [address] [place] [address] PAT - Anesthesia 12/18/241925 MR#: [id number] Acct: [id number] Name: BRYCE ANN Rep #: [id number] : 1940 84 From: Ciro Holman MD PCP: Dr. 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 When Was Last Pacemaker Check QUESTION #4 FULL TEXT: You/Your Family Experience fever (hyperthermia) with Anesthesia Last Oral Intake Last Oral intake: Last Oral Intake NPO since Meds taken in AM with sips of water? Meds patient instructed to take am of surgery PONV PONV - asphalt mixer: PONV - asphalt mixer Female No 12/11/24 09:26 HX of Motion Sickness No 12/11/24 09:26 HX of N/V After Surgery No 12/11/24 09:26 Non-Smoker Yes 12/11/24 09:26 Duration of Surgery greater Yes 12/11/24 09:26 than 60 minutes Number of Risk Factors 2 12/11/24 09:26 PONV Score Moderate Risk 12/11/24 09:26 Height Weight Height Weight: Anesthesia: Height Weight Height 5 ft 1 in 11/25/24 15:24 Respiratory Assessment Respiratory Assessment - asphalt mixer: Respiratory Tract Infection Hx - asphalt mixer Hx Respiratory Tract Infection No 12/11/24 09:26 STOP Sleep Apnea STOP Sleep Apnea - asphalt mixer: STOP Sleep Apnea - asphalt mixer Hx Hypertension No 12/11/24 09:26 Hx Sleep Apnea No 12/11/24 09:26 CPAP No 08/19/24 11:30 BIPAP No 08/19/24 11:30 Do you snore loudly (louder No 12/11/24 09:26 than talking or can be heard Do you often feel tired/ No 12/11/24 09:26 fatigued/ sleepy during daytime? Has anyone observed you stop No 12/11/24 09:26 breathing during sleep? STOP Results Negative 12/11/24 09:26 QUESTION #5 FULL TEXT : Do you snore loudly (louder than talking or can be heard through closed doors)? Tobacco Use History Tobacco Use History - asphalt mixer: Tobacco Use History - asphalt mixer Tobacco Use Smoking Status Former smoker 12/11/24 09:26 Hx Tobacco Use No 12/11/24 09:26 Years Smoking Packs Smoked per Day Smoking Cessation Date was No - quit smoking greater 12/11/24 09:26 within the last 15 years than 15 years ago Hx Smoking Cessation Date 05/29/68 12/11/24 09:26 Hx Smoking Cessation Counseling Hematologic Medial History Hematologic Hx - asphalt mixer: Hematologic Medical Hx - sole scraper Hx of Blood Transfusion No 12/11/24 09:26 Hx of Transfusion in last 3 No 12/11/24 09:26 Months Date of Last Transfusion (if within last 3 months) Ever experience any problems No 12/11/24 09:26 with transfusion(s)? Specify any problems Hx of Preganancy in last 3 N/A 12/11/24 09:26 Months Nurse Filling Out Transfusion [facility] 12/11/24 09:26 Questions: Date: 12/11/24 12/11/24 09:26 Time: 09:39 12/11/24 09:26 Patient unable to answer at this time (ie. confused, unrespo /Reproduction History /Reproductive History - asphalt mixer: /Reproductive Hx- asphalt mixer Hx Now No 12/11/24 09:26 Gestational Age (in weeks): EDC: Hx Hx Para Hx Section SAB No 12/11/24 09:26 [facility] Medical History (Updated 12/12/24 @ 12:[address] 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 Normal [facility] MRSA/SAID NASAL SCREENon MRSA+SAID SCRN Reason for Exam: Ilsa david MRSA MRSA Negative S. AUREUS S. aureus PositiveA Normal [facility] Comment on above: Performed By: #### L 501.5200, BTSPAT, L100.0100, L501.9985, M100.651, L300.3900, L500.2500, L300.4310, L3400.0100 ####[facility] [address] [place], [place], [id number] Absolute lymphocyte countOrd ered By: Rui Robbins on 12-17-2024 Lymphocytes Auto (Unsp spec) [#/Vol] 1.05 10*3/uL 0.83-4.51 [facility] Activated partial thrombopla stin time (aPTT) in platelet poor plasma by coagulation aOrdered By: Rui Robbins on 12-17-2024 aPTT Coag (PPP) [Time] 30.1 s 24.1-36.2 [facility] Anion gap in Serum or Plasma Ordered By: Rui Robbins on 12-17-2024 Anion gap [Moles/Vol] 10 mmol/L 5- [facility] Automated lymphocyte count a s percentage of total leukocytesOrdered By: Rui Robbins on 12-17-2024 Lymphocytes/100 WBC Auto (Unsp spec) 24.3 % - [facility] BUN/creatinine ratioOrdered By: Rui Robbins on 12-17-2024 Urea nitrogen/Creatinine [Mass ratio] 17.2 mg/mg - [facility] Basic Metabolic Profile (BMP )on 12-17-2024 BUN/CRE 17.2 RATIO Normal 03-17 [facility] Comment on above: Performed By: #### L 501.5200, BTSPAT, L100.0100, L501.9985, M100.651, L300.3900, L500.2500, L300.4310, L3400.0100 #### [facility] [address] [place], [place], [phone] Calcium [Mass/Vol] 9.0 mg/dL Normal 7.6-11.0 [facility] Comment on above: Performed By: #### L 501.5200, BTSPAT, L100.0100, L501.9985, M100.651, L300.3900, L500.2500, L300.4310, L3400.0100 #### [facility] [address] [place], [place], [phone] ([phone] Chloride [Moles/Vol] 96 mmol/L Low 98-108 [facility] Comment on above: Performed By: #### L 501.5200, BTSPAT, L100.0100, L501.9985, M100.651, L300.3900, L500.2500, L300.4310, L3400.0100 #### [facility] [address] [place], [place], [phone] ([phone]) CO2 [Moles/Vol] 25.8 mmol/L Normal 21.0-32.0 [facility] Comment on above: Performed By: #### L 501.5200, BTSPAT, L100.0100, L501.9985, M100.651, L300.3900, L500.2500, L300.4310, L3400.0100 #### [facility] [address] [place], [place], [phone] ([phone]) Creatinine [Mass/Vol] 0.94 mg/dL Normal 0.70-1.20 [facility] Comment on above: Performed By: #### L 501.5200, BTSPAT, L100.0100, L501.9985, M100.651, L300.3900, L500.2500, L300.4310, L3400.0100 #### [facility] [address] [place], [address] GAP 10 Normal 5-15 [facility] Comment on above: Performed By: #### L 501.5200, BTSPAT, L100.0100, L501.9985, M100.651, L300.3900, L500.2500, L300.4310, L3400.0100 #### [facility] [address] [place], [place], [phone] (969) GFR/1.73 sq M.predicted among non-blacks MDRD (S/P/Bld) [Vol rate/Area] 81 mL/min/{1.73_m2} Normal >60 [facility] Comment on above: Result Comment: mL/m in/1.73m2 CKD-EPI Creatinine Equation (2020) Performed By: #### L 501.5200, BTSPAT, L100.0100, L501.9985, M100.651, L300.3900, L500.2500, L300.4310, L3400.0100 #### [facility] [address] [place], [place], [phone] ([phone]) Glucose [Mass/Vol] 88 mg/dL Normal 70-99 [facility] Comment on above: Performed By: #### L 501.5200, BTSPAT, L100.0100, L501.9985, M100.651, L300.3900, L500.2500, L300.4310, L3400.0100 #### [facility] [address] [place], [place], [phone] (230) Potassium [Moles/Vol] 4.4 mmol/L Normal 3.3-5.1 [facility] Comment on above: Performed By: #### L 501.5200, BTSPAT, L100.0100, L501.9985, M100.651, L300.3900, L500.2500, L300.4310, L3400.0100 #### [facility] [address] [place], [address] Sodium [Moles/Vol] 132 mmol/L Low 133-145 [facility] Comment on above: Performed By: #### L 501.5200, BTSPAT, L100.0100, L501.9985, M100.651, L300.3900, L500.2500, L300.4310, L3400.0100 #### [facility] [address] [place], [address] Urea nitrogen [Mass/Vol] 16 mg/dL Normal 4-19 [facility] Comment on above: Performed By: #### L 501.5200, BTSPAT, L100.0100, L501.9985, M100.651, L300.3900, L500.2500, L300.4310, L3400.0100 #### [facility] [address] [place], [address] Basophil percentageOrdered B y: Rui Robbins on 12-17-2024 Basophils/100 WBC (Bld) 0.9 % 0-1 [facility] CBC W/Diff, Automatedon 11-27 Absolute Lymph 1.05 X10 3/uL Normal 0.83-4.51 [facility] Comment on above: Performed By: #### L 501.5200, BTSPAT, L100.0100, L501.9985, M100.651, L300.3900, L500.2500, L300.4310, L3400.0100 #### [facility] [address] [place], [address] Absolute Neut 2.5 X10 3/uL Normal 2.0-7.7 [facility] Comment on above: Performed By: #### L 501.5200, BTSPAT, L100.0100, L501.9985, M100.651, L300.3900, L500.2500, L300.4310, L3400.0100 #### [facility] [address] [place], [address] Basophils/100 WBC (Bld) 0.9 % Normal 0-1 [facility] Comment on above: Performed By: #### L 501.5200, BTSPAT, L100.0100, L501.9985, M100.651, L300.3900, L500.2500, L300.4310, L3400.0100 #### [facility] [address] [place], [address] Eosinophils/100 WBC (Bld) 4.4 % Normal 0-5 [facility] Comment on above: Performed By: #### L 501.5200, BTSPAT, L100.0100, L501.9985, M100.651, L300.3900, L500.2500, L300.4310, L3400.0100 #### [facility] [address] [place], [address] Erythrocyte distribution width (RBC) [Ratio] 15.2 % High 11.6-14.6 [facility] Comment on above: Performed By: #### L 501.5200, BTSPAT, L100.0100, L501.9985, M100.651, L300.3900, L500.2500, L300.4310, L3400.0100 #### [facility] [address] [place], [address] Hematocrit (Bld) [Volume fraction] 35.2 % Low 40-54 [facility] Comment on above: Performed By: #### L 501.5200, BTSPAT, L100.0100, L501.9985, M100.651, L300.3900, L500.2500, L300.4310, L3400.0100 #### [facility] [address] [place], [address] Hemoglobin (Bld) [Mass/Vol] 11.5 g/dL Low 13.0-16.5 [facility] Comment on above: Performed By: #### L 501.5200, BTSPAT, L100.0100, L501.9985, M100.651, L300.3900, L500.2500, L300.4310, L3400.0100 #### [facility] [address] [place], [address] IG% 0.200 Normal 0.0-0.9 [facility] Comment on above: Result Comment: IG% - Immature Granulocytes (promyelocytes, myelocytes and metamyelocytes) > 1% indicates that a LEFT SHIFT is Present. Performed By: #### L 501.5200, BTSPAT, L100.0100, L501.9985, M100.651, L300.3900, L500.2500, L300.4310, L3400.0100 #### [facility] [address] [place], [address] Lymphocytes/100 WBC (Bld) 24.3 % Normal 19-41 [facility] Comment on above: Performed By: #### L 501.5200, BTSPAT, L100.0100, L501.9985, M100.651, L300.3900, L500.2500, L300.4310, L3400.0100 #### [facility] [address] [place], [address] MCH (RBC) [Entitic mass] 33.5 pg High 27.0-32.0 [facility] Comment on above: Performed By: #### L 501.5200, BTSPAT, L100.0100, L501.9985, M100.651, L300.3900, L500.2500, L300.4310, L3400.0100 #### [facility] [address] [place], [address] MCHC (RBC) [Mass/Vol] 32.7 g/dL Normal 32-36 [facility] Comment on above: Performed By: #### L 501.5200, BTSPAT, L100.0100, L501.9985, M100.651, L300.3900, L500.2500, L300.4310, L3400.0100 #### [facility] [address] [place], [address] MCV (RBC) [Entitic vol] 102.6 fL High 80-94 [facility] Comment on above: Performed By: #### L 501.5200, BTSPAT, L100.0100, L501.9985, M100.651, L300.3900, L500.2500, L300.4310, L3400.0100 #### [facility] [address] [place], [address] Monocytes/100 WBC (Bld) 12.3 % High 0-10 [facility] Comment on above: Performed By: #### L 501.5200, BTSPAT, L100.0100, L501.9985, M100.651, L300.3900, L500.2500, L300.4310, L3400.0100 #### [facility] [address] [place], [address] Neutrophils/100 WBC (Bld) 57.9 % Normal 47-70 [facility] Comment on above: Performed By: #### L 501.5200, BTSPAT, L100.0100, L501.9985, M100.651, L300.3900, L500.2500, L300.4310, L3400.0100 #### [facility] [address] [facility] [place], [address] Nucleated RBC (Bld) [#/Vol] 0 10*3/uL Normal 0-5 [facility] Comment on above: Performed By: #### L 501.5200, BTSPAT, L100.0100, L501.9985, M100.651, L300.3900, L500.2500, L300.4310, L3400.0100 #### [facility] [address] [place], [address] Platelet mean volume (Bld) [Entitic vol] 9.3 fL Normal 6.2-12.0 [facility] Comment on above: Performed By: #### L 501.5200, BTSPAT, L100.0100, L501.9985, M100.651, L300.3900, L500.2500, L300.4310, L3400.0100 #### [facility] [address] [place], [address] Platelets (Bld) [#/Vol] 184 10*3/uL Normal 150-450 [facility] Comment on above: Performed By: #### L 501.5200, BTSPAT, L100.0100, L501.9985, M100.651, L300.3900, L500.2500, L300.4310, L3400.0100 #### [facility] [facility] [address] [place], [address] RBC (Bld) [#/Vol] 3.43 10*6/uL Low 4.6-6.2 [facility] Comment on above: Performed By: #### L 501.5200, BTSPAT, L100.0100, L501.9985, M100.651, L300.3900, L500.2500, L300.4310, L3400.0100 #### [facility] [address] [place], [address] RDW SD 57.6 fl High 35.1-43.9 [facility] Comment on above: Performed By: #### L 501.5200, BTSPAT, L100.0100, L501.9985, M100.651, L300.3900, L500.2500, L300.4310, L3400.0100 #### [facility] [address] [place], [address] WBC (Bld) [#/Vol] 4.3 10*3/uL Low 4.4-11.0 [facility] Comment on above: Performed By: #### L 501.5200, BTSPAT, L100.0100, L501.9985, M100.651, L300.3900, L500.2500, L300.4310, L3400.0100 #### [facility] [address] [place], [place], [id number] Carbon dioxide, total [Moles /volume] in Central venous bloodOrdered By: Rui Robbins on 12-17-2024 CO2 [Moles/Vol] 25.8 mmol/L 21.0-32.0 [facility] Chloride assayOrdered By: Sawyer Robbins on 12-17-2024 Chloride [Moles/Vol] 96 mmol/L Low 98-108 [facility] Eosinophil percentageOrdered By: Rui Robbins on 12-17-2024 Eosinophils/100 WBC (Bld) 4.4 % 0-5 [facility] Erythrocyte distribution wid th ratioOrdered By: Rui Robbins on 12-17-2024 Erythrocyte distribution width (RBC) [Ratio] 15.2 % High 11.6-14.6 [facility] Erythrocyte distribution wid th standard deviationOrdered By: Rui Robbins on 12-17-2024 Erythrocyte distribution width (RBC) [Ratio] 57.6 fl High 35.1-43.9 [facility] Glomerular filtration rate ( GFR) estimation/1.73 sq m using serum, plasma, or whole bOrdered By: Rui Robbins on 12-17-2024 GFR/1.73 sq M.predicted among non-blacks MDRD (S/P/Bld) [Vol rate/Area] 81 mL/min/{1.73_m2} >60 [facility] Hematocrit Auto (Bld) [Volum e fraction]Ordered By: Rui Robbins on 12-17-2024 Hematocrit (Bld) [Volume fraction] 35.2 % Low 40-54 [facility] Hemoglobin A1con 12-17-2024 HbA1c (Bld) [Mass fraction] 5.1 % Normal <=5.6 [facility] Comment on above: Result Comment: Norm al < 5.7 % Prediabetic 5.7 - 6.4 % Diabetic >or= 6.5 % Please note range changes. Performed By: #### L 501.5200, BTSPAT, L100.0100, L501.9985, M100.651, L300.3900, L500.2500, L300.4310, L3400.0100 #### [facility] [address] [place], [place], [id number] Hemoglobin A1c percentageOrd ered By: Rui Robbins on 12-17-2024 HbA1c (Bld) [Mass fraction] 5.1 % <5.7 [facility] Hemoglobin measurementOrdere d By: Rui Robbins on 12-17-2024 Hemoglobin (Bld) [Mass/Vol] 11.5 g/dL Low 13.0-16.5 [facility] Immature granulocytes/100 WB C Auto (Bld)Ordered By: Rui Robbins on 12-17-2024 Immature granulocytes/100 WBC (Bld) 0.200 % 0.0-0.9 [facility] MCV (mean corpuscular volume ) determinationOrdered By: Rui Robbins on 12-17-2024 MCV (RBC) [Entitic vol] 102.6 fL High 80-94 [facility] MRSA screenOrdered By: uRi Robbins on 12-17-2024 MRSA DNA JUDI+probe Ql (Unsp spec) [facility] MRSA DNA JUDI+probe Ql (Unsp spec) [facility] Magnesiumon 12-17-2024 Magnesium [Mass/Vol] 2.3 mg/dL High 1.5-2.2 [facility] Comment on above: Performed By: #### L 501.5200, BTSPAT, L100.0100, L501.9985, M100.651, L300.3900, L500.2500, L300.4310, L3400.0100 ####[facility] [address] [place], [place], [id number] Magnesium measurement (mass/ volume)Ordered By: Rui Robbins on 12-17-2024 Magnesium (Unsp spec) [Mass/Vol] 2.3 mg/dL High 1.5-2.2 [facility] Mean corpuscular hemoglobin (MCH) determinationOrdered By: Rui Robbins on 12-17-2024 MCH (RBC) [Entitic mass] 33.5 pg High 27.0-32.0 [facility] Monocyte percentageOrdered B y: Rui Robbins on 12-17-2024 Monocytes/100 WBC (Bld) 12.3 % High 0-10 [facility] Neutrophil percentageOrdered By: Rui Robbins on 12-17-2024 Neutrophils/100 WBC (Bld) 57.9 % 47-70 [facility] Partial Thromboplast Timeon 12-17-2024 aPTT Coag (Bld) [Time] 30.1 s Normal 24.1-36.2 [facility] Comment on above: Performed By: #### L 501.5200, BTSPAT, L100.0100, L501.9985, M100.651, L300.3900, L500.2500, L300.4310, L3400.0100 #### [facility] [address] [place], [address] Platelet countOrdered By: Sawyer Robbins on 12-17-2024 Platelets (Bld) [#/Vol] 184 10*3/uL 150-450 [facility] Potassium measurement (mass/ volume)Ordered By: Rui Robbins on 12-17-2024 Potassium (Unsp spec) [Mass/Vol] 4.4 mmol/L 3.3-5.1 [facility] Prothrombin Time w/INRon INR Coag (PPP) [Relative time] 0.9 {INR} Normal [facility] Comment on above: Performed By: #### L 501.5200, BTSPAT, L100.0100, L501.9985, M100.651, L300.3900, L500.2500, L300.4310, L3400.0100 #### [facility] [address] [place], [address] PT Coag (PPP) [Time] 12.3 s Normal 11.7-14.9 [facility] Comment on above: Performed By: #### L 501.5200, BTSPAT, L100.0100, L501.9985, M100.651, L300.3900, L500.2500, L300.4310, L3400.0100 #### [facility] [address] [place], [address] Prothrombin timeOrdered By: Rui Robbins on 12-17-2024 PT Coag (PPP) [Time] 12.3 s 11.7-14.9 [facility] RBC Auto (Bld) [#/Vol]Ordere d By: Rui Robbins on 12-17-2024 RBC (Bld) [#/Vol] 3.43 10*6/uL Low 4.6-6.2 [facility] Serum creatinine measurement (mass/volume)Ordered By: Rui Robbins on 12-17-2024 Creatinine [Mass/Vol] 0.94 mg/dL 0.70-1.20 [facility] Serum glucose measurement (m ass/volume)Ordered By: Rui Robbins on 12-17-2024 Glucose [Mass/Vol] 88 mg/dL 70-99 [facility] Serum or plasma calcium lenka urement (mass/volume)Ordered By: Rui Robbins on 12-17-2024 Calcium [Mass/Vol] 9.0 mg/dL 7.6-11.0 [facility] Serum or plasma urea nitroge n measurement (mass/volume)Ordered By: Rui Robbins on 12-17-2024 Urea nitrogen [Mass/Vol] 16 mg/dL 4-19 [facility] Sodium levelOrdered By: Brandon Robbins on 12-17-2024 Sodium [Moles/Vol] 132 mmol/L Low 133-145 [facility] Type AND Screen - PAT ONLYon 12-17-2024 Ab SCREEN GEL Negative Normal [facility] Comment on above: Order Comment: Surge ry Date: 12/25/24 Reason for Laboratory Test PREOP [id number] N/A N N S SHOULDER ARTHROPLASTY Performed By: #### L 501.5200, BTSPAT, L100.0100, L501.9985, M100.651, L300.3900, L500.2500, L300.4310, L3400.0100 #### [facility] [address] [place], [address] White blood cell (WBC) count Ordered By: Rui Robbins on 12-17-2024 WBC (Bld) [#/Vol] 4.3 10*3/uL Low 4.4-11.0 [facility] Absolute lymphocyte countOrd ered By: Catalino Lopezraina on 12-12-2024 Lymphocytes Auto (Unsp spec) [#/Vol] 1.67 10*3/uL 0.83-4.51 [facility] Anion gap in Serum or Plasma Ordered By: Catalino Lopezraina on 12-12-2024 Anion gap [Moles/Vol] 10 mmol/L 5-15 [facility] Automated lymphocyte count a s percentage of total leukocytesOrdered By: Catalino Lopezraina on 12-12-2024 Lymphocytes/100 WBC Auto (Unsp spec) 29.5 % 19- [facility] BUN/creatinine ratioOrdered By: [facility] on 12-12-2024 Urea nitrogen/Creatinine [Mass ratio] 12.2 mg/mg 10- [facility] Basophil percentageOrdered B y: Catalino Lopezraina on 12-12-2024 Basophils/100 WBC (Bld) 0.5 % 0-1 [facility] Bilirubin, totalOrdered By: Catalino Lopezraina on 12-12-2024 Bilirubin [Mass/Vol] 0.46 mg/dL 0.00-1.30 [facility] CBC W/Diff, Automatedon 11-26 Absolute Lymph 1.67 X10 3/uL Normal 0.83-4.51 [facility] Comment on above: Performed By: #### L 503.6030, L503.6550, L500.4050, L504.2610, L100.0100 ####[facility] [address] [place], [address] Absolute Neut 3.0 X10 3/uL Normal 2.0-7.7 [facility] Comment on above: Performed By: #### L 503.6030, L503.6550, L500.4050, L504.2610, L100.0100 ####[facility] [address] [place], [address] Basophils/100 WBC (Bld) 0.5 % Normal 0-1 [facility] Comment on above: Performed By: #### L 503.6030, L503.6550, L500.4050, L504.2610, L100.0100 ####[facility] [address] [place], [address] Eosinophils/100 WBC (Bld) 5.1 % High 0-5 [facility] Comment on above: Performed By: #### L 503.6030, L503.6550, L500.4050, L504.2610, L100.0100 ####[facility] [address] [place], [address] Erythrocyte distribution width (RBC) [Ratio] 15.9 % High 11.6-14.6 [facility] Comment on above: Performed By: #### L 503.6030, L503.6550, L500.4050, L504.2610, L100.0100 ####[facility] [address] [place], [address] Hematocrit (Bld) [Volume fraction] 34.8 % Low 40-54 [facility] Comment on above: Performed By: #### L 503.6030, L503.6550, L500.4050, L504.2610, L100.0100 ####[facility] [address] [place], [address] Hemoglobin (Bld) [Mass/Vol] 11.8 g/dL Low 13.0-16.5 [facility] Comment on above: Performed By: #### L 503.6030, L503.6550, L500.4050, L504.2610, L100.0100 ####[facility] [address] [place], [address] IG% 0.200 Normal 0.0-0.9 [facility] Comment on above: Result Comment: IG% - Immature Granulocytes (promyelocytes, myelocytes and metamyelocytes) > 1% indicates that a LEFT SHIFT is Present. Performed By: #### L 503.6030, L503.6550, L500.4050, L504.2610, L100.0100 ####[facility] [address] [place], [address] Lymphocytes/100 WBC (Bld) 29.5 % Normal 19-41 [facility] Comment on above: Performed By: #### L 503.6030, L503.6550, L500.4050, L504.2610, L100.0100 ####[facility] [address] [place], [address] MCH (RBC) [Entitic mass] 34.2 pg High 27.0-32.0 [facility] Comment on above: Performed By: #### L 503.6030, L503.6550, L500.4050, L504.2610, L100.0100 ####[facility] [address] [place], [address] MCHC (RBC) [Mass/Vol] 33.9 g/dL Normal 32-36 [facility] Comment on above: Performed By: #### L 503.6030, L503.6550, L500.4050, L504.2610, L100.0100 ####[facility] [address] [place], [address] MCV (RBC) [Entitic vol] 100.9 fL High 80-94 [facility] Comment on above: Performed By: #### L 503.6030, L503.6550, L500.4050, L504.2610, L100.0100 ####[facility] [address] [place], [address] Monocytes/100 WBC (Bld) 11.8 % High 0-10 [facility] Comment on above: Performed By: #### L 503.6030, L503.6550, L500.4050, L504.2610, L100.0100 ####[facility] [address] [place], [address] Neutrophils/100 WBC (Bld) 52.9 % Normal 47-70 [facility] Comment on above: Performed By: #### L 503.6030, L503.6550, L500.4050, L504.2610, L100.0100 ####[facility] [address] [place], [address] Nucleated RBC (Bld) [#/Vol] 0 10*3/uL Normal 0-5 [facility] Comment on above: Performed By: #### L 503.6030, L503.6550, L500.4050, L504.2610, L100.0100 ####[facility] [address] [place], [address] Platelet mean volume (Bld) [Entitic vol] 9.2 fL Normal 6.2-12.0 [facility] Comment on above: Performed By: #### L 503.6030, L503.6550, L500.4050, L504.2610, L100.0100 ####[facility] [address] [place], [address] Platelets (Bld) [#/Vol] 168 10*3/uL Normal 150-450 [facility] Comment on above: Performed By: #### L 503.6030, L503.6550, L500.4050, L504.2610, L100.0100 ####[facility] [address] [place], [address] RBC (Bld) [#/Vol] 3.45 10*6/uL Low 4.6-6.2 [facility] Comment on above: Performed By: #### L 503.6030, L503.6550, L500.4050, L504.2610, L100.0100 ####[facility] [address] [place], [address] RDW SD 58.4 fl High 35.1-43.9 [facility] Comment on above: Performed By: #### L 503.6030, L503.6550, L500.4050, L504.2610, L100.0100 ####[facility] [address] [place], [address] WBC (Bld) [#/Vol] 5.7 10*3/uL Normal 4.4-11.0 [facility] Comment on above: Performed By: #### L 503.6030, L503.6550, L500.4050, L504.2610, L100.0100 ####[facility] [address] [place], [address] Carbon dioxide, total [Moles /volume] in Central venous bloodOrdered By: Catalino Short on 12-12-2024 CO2 [Moles/Vol] 23.0 mmol/L 21.0-32.0 [facility] Chloride assayOrdered By: Nichole Short on 12-12-2024 Chloride [Moles/Vol] 99 mmol/L 98-108 [facility] Comprehensive Metabolic Prof ilon 12-12-2024 Albumin [Mass/Vol] 4.0 g/dL Normal 3.4-4.8 [facility] Comment on above: Performed By: #### L 503.6030, L503.6550, L500.4050, L504.2610, L100.0100 ####[facility] [address] [place], [address] Albumin/Globulin [Mass ratio] 1.7 {ratio} Normal 0.9-2.4 [facility] Comment on above: Performed By: #### L 503.6030, L503.6550, L500.4050, L504.2610, L100.0100 ####[facility] [address] [place], [address] ALK PHOS 68 U/L Normal 40-129 [facility] Comment on above: Performed By: #### L 503.6030, L503.6550, L500.4050, L504.2610, L100.0100 ####[facility] [address] [place], [address] ALT [Catalytic activity/Vol] 20 U/L Normal <=46 [facility] Comment on above: Performed By: #### L 503.6030, L503.6550, L500.4050, L504.2610, L100.0100 ####[facility] [address] [place], [address] AST [Catalytic activity/Vol] 26 U/L Normal <=37 [facility] Comment on above: Performed By: #### L 503.6030, L503.6550, L500.4050, L504.2610, L100.0100 ####[facility] [address] [place], [address] Bilirubin [Mass/Vol] 0.46 mg/dL Normal 0.00-1.30 [facility] Comment on above: Performed By: #### L 503.6030, L503.6550, L500.4050, L504.2610, L100.0100 ####[facility] [address] [place], [address] BUN/CRE 12.2 RATIO Normal 10-20 [facility] Comment on above: Performed By: #### L 503.6030, L503.6550, L500.4050, L504.2610, L100.0100 ####[facility] [address] [place], [address] Calcium [Mass/Vol] 8.6 mg/dL Normal 7.6-11.0 [facility] Comment on above: Performed By: #### L 503.6030, L503.6550, L500.4050, L504.2610, L100.0100 ####[facility] [address] [place], [address] Chloride [Moles/Vol] 99 mmol/L Normal 98-108 [facility] Comment on above: Performed By: #### L 503.6030, L503.6550, L500.4050, L504.2610, L100.0100 ####[facility] [address] [place], [address] CO2 [Moles/Vol] 23.0 mmol/L Normal 21.0-32.0 [facility] Comment on above: Performed By: #### L 503.6030, L503.6550, L500.4050, L504.2610, L100.0100 ####[facility] [address] [place], [address] Creatinine [Mass/Vol] 0.86 mg/dL Normal 0.70-1.20 [facility] Comment on above: Performed By: #### L 503.6030, L503.6550, L500.4050, L504.2610, L100.0100 ####[facility] [address] [place], [address] ECRCL 48.99 ml/min Low 50-250 [facility] Comment on above: Performed By: #### L 503.6030, L503.6550, L500.4050, L504.2610, L100.0100 ####[facility] [address] [place], [address] GAP 10 Normal 5-15 [facility] Comment on above: Performed By: #### L 503.6030, L503.6550, L500.4050, L504.2610, L100.0100 ####[facility] [address] [place], [address] GFR/1.73 sq M.predicted among non-blacks MDRD (S/P/Bld) [Vol rate/Area] 86 mL/min/{1.73_m2} Normal >60 [facility] Comment on above: Result Comment: mL/m in/1.73m2 CKD-EPI Creatinine Equation (2020) Performed By: #### L 503.6030, L503.6550, L500.4050, L504.2610, L100.0100 ####[facility] [address] [place], [address] Globulin (S) [Mass/Vol] 2.4 g/dL Normal 2.2-4.2 [facility] Comment on above: Performed By: #### L 503.6030, L503.6550, L500.4050, L504.2610, L100.0100 ####[facility] [address] [place], [address] Glucose [Mass/Vol] 114 mg/dL High 70-99 [facility] Comment on above: Performed By: #### L 503.6030, L503.6550, L500.4050, L504.2610, L100.0100 ####[facility] [address] [place], [address] Potassium [Moles/Vol] 4.5 mmol/L Normal 3.3-5.1 [facility] Comment on above: Performed By: #### L 503.6030, L503.6550, L500.4050, L504.2610, L100.0100 ####[facility] [address] [place], [address] Sodium [Moles/Vol] 132 mmol/L Low 133-145 [facility] Comment on above: Performed By: #### L 503.6030, L503.6550, L500.4050, L504.2610, L100.0100 ####[facility] [address] [place], [address] T PROT 6.4 g/dL Normal 5.9-8.4 [facility] Comment on above: Performed By: #### L 503.6030, L503.6550, L500.4050, L504.2610, L100.0100 ####[facility] [address] [place], [address] Urea nitrogen [Mass/Vol] 11 mg/dL Normal 4-19 [facility] Comment on above: Performed By: #### L 503.6030, L503.6550, L500.4050, L504.2610, L100.0100 ####[facility] [address] [place], [address] Eosinophil percentageOrdered By: Catalino Short on 12-12-2024 Eosinophils/100 WBC (Bld) 5.1 % High 0-5 [facility] Erythrocyte distribution wid th ratioOrdered By: Catalino Deja on 12-12-2024 Erythrocyte distribution width (RBC) [Ratio] 15.9 % High 11.6-14.6 [facility] Erythrocyte distribution wid th standard deviationOrdered By: Prosser Deja on 12-12-2024 Erythrocyte distribution width (RBC) [Ratio] 58.4 fl High 35.1-43.9 [facility] Ferritinon 12-12-2024 Ferritin [Mass/Vol] 585 ng/mL High 37-417 [facility] Comment on above: Performed By: #### L 503.6030, L503.6550, L500.4050, L504.2610, L100.0100 ####[facility] [address] [place], [address] Glomerular filtration rate ( GFR) estimation/1.73 sq m using serum, plasma, or whole bOrdered By: Catalino Short on 12-12-2024 GFR/1.73 sq M.predicted among non-blacks MDRD (S/P/Bld) [Vol rate/Area] 86 mL/min/{1.73_m2} >60 [facility] Hematocrit Auto (Bld) [Volum e fraction]Ordered By: Catalino Short on 12-12-2024 Hematocrit (Bld) [Volume fraction] 34.8 % Low 40-54 [facility] Hemoglobin measurementOrdere d By: Catalino Deja on 12-12-2024 Hemoglobin (Bld) [Mass/Vol] 11.8 g/dL Low 13.0-16.5 [facility] Immature granulocytes/100 WB C Auto (Bld)Ordered By: Catalino Short on 12-12-2024 Immature granulocytes/100 WBC (Bld) 0.200 % 0.0-0.9 [facility] Iron measurement (mass/mass) Ordered By: Catalino Short on 12-12-2024 Iron (Unsp spec) [Mass/Mass] 64 ug/dL Low 65-175 [facility] Iron+Iron Binding Capacityon 12-12-2024 TIBC 236 ug/dL Low 250-450 [facility] Comment on above: Performed By: #### L 503.6030, L503.6550, L500.4050, L504.2610, L100.0100 ####[facility] [address] [facility] [place], [address] LDHon 12-12-2024 LDH 225 U/L Normal 87-241 [facility] Comment on above: Order Comment: 1 Performed By: #### L 503.6030, L503.6550, L500.4050, L504.2610, L100.0100 ####[facility] [address] [place], [address] MCV (mean corpuscular volume ) determinationOrdered By: Catalino Short on 12-12-2024 MCV (RBC) [Entitic vol] 100.9 fL High 80-94 [facility] Mean corpuscular hemoglobin (MCH) determinationOrdered By: [facility] on 12-12-2024 MCH (RBC) [Entitic mass] 34.2 pg High 27.0-32.0 [facility] Monocyte percentageOrdered B y: Catalino Short on 12-12-2024 Monocytes/100 WBC (Bld) 11.8 % High 0-10 [facility] Neutrophil percentageOrdered By: Catalino Deja on 12-12-2024 Neutrophils/100 WBC (Bld) 52.9 % 47-70 [facility] No Panel InformationOrdered By: Catalino Short on 12-12-2024 26 U/L <38 [facility] 172 ug/dL Low 228-428 [facility] Oncology Visit Reporton 11-26 Oncology Visit Report [facility] [place] [address] OFFICE VISIT Date of Service: 12/12/24 1145 MR#: [id number] Acct: [id number] Name: BRYCE ANN Rep #: [id number] : 1940 From: Catalino Short MD Age/Sex: 84/M [place] [facility] Status: Signed HPI Subjective Date of Service 12/12/24 Chief Complaint F/u for SHANA. History of Present Illness 84-year-old man was found to have gastric AVM associated with anemia. Upper GI endoscopy on 07/26/2021 showed for bleeding angiodysplastic lesions in the stomach. Treatment with APC was done. He was found to have persistent anemia and referred for further evaluation. He was found to have Iron deficiency anemia. Elected to do oral replacement about 4 weeks. 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 Received Injectafer in October 2022, iron profile corrected. He is on oral Iron and comes for follow up. [facility] Medical History (Updated 12/12/24 @ 12:[address] 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 Secondary adrenal insufficiency Vitamin D deficiency Chronic edema Wears glasses Former smoker History of stress test History of heart attack Anemia Coronary artery disease Atherosclerotic heart disease of [place] coronary artery without angina pectoris BPH (benign prostatic hyperplasia) GERD (gastroesophageal reflux disease) Lumbar spinal stenosis Atrial fibrillation PAT (paroxysmal atrial tachycardia) SVT (supraventricular tachycardia) Rheumatoid arthritis Surgical History History of cardiac catheterization History of coronary artery stent placement Hx of colectomy Hx of transurethral resection of prostate Hx of laminectomy History of lumbar surgery History of coronary artery stent placement (08/06/20) H/O colonoscopy S/P left colectomy S/P appendectomy S/P hemorrhoidectomy S/P vasectomy S/P laparoscopic cholecystectomy H/O umbilical hernia repair S/P inguinal hernia repair S/P rotator cuff repair S/P cataract surgery Family History Father CVA (cerebral vascular accident) Brother CAD (coronary artery disease) CABG X 3 Mother CVA (cerebral vascular accident) Grandfather Cancer prostate Social History household members: none housing: house current occupational status: retired Smoking Status: Former smoker how long ago did patient quit smokin years ago alcohol intake: never substance use type: does not use diet: low salt caffeine: Yes Type: coffee Number of servings: 4 Intake Vital Signs 10/25/24 11:34 11/25/24 15:24 12/12/24 11:45 Height 5 ft 1 in 5 ft 1 in 5 ft 1 in Weight: 61.32 kg BMI 25.5 BP 108/64 Blood Pressure Location Lt brachial Position Sitting Respiration 18 Pulse 59 L Pulse Source Monitor Temp 98.4 F Temperature Source Temporal Artery Pulse Oximetry (%) 95 Oxygen Delivery Method room air Intake Accompanied by: Self Is patient in pain?: Yes (arthritis lower back and right shoulder (surgery 12/25)) Pain scale (1-10): 9 Allergies No Known Allergies Allergy (Verified 12/12/24 11:49) Medications ???Medication ???Instructions ???Recorded ???Confirmed ???Type tamsulosin 0.4 mg capsule 0.4 mg PO DAILY@1800 Retention 12/12/24 History finasteride 1 mg tablet 5 mg PO DAILY prostate 12/30/20 History golimumab 12.5 mg/mL intravenous 12.5 mg IV .[id number] injection /0 08/1812/12/24 History solution (Simponi ARIA) gabapentin 300 mg capsule 300 mg PO TID PRN PRN NERVE PAIN 0 10/20/22 12/12/24 History trazodone 100 mg tablet 100 mg PO QHS Check with primary 0 11/14/22 12/12/24 History doctor acetaminophen 500 mg tablet 1,000 mg (2 x 500 mg) PO Q8 #0 tab s 01/24/23 12/12/24 Rx denosumab 60 mg/mL subcutaneous 60 mg subcut [id number] #1 mL 12/12/24 Rx syringe (Prolia) methotrexate sodium 2.5 mg tablet 20 mg PO QWEEK 06/01/23 12/12/24 History sulfasalazine 500 mg 0.5 g PO Q12H 06/01/23 12/12/24 Hi story tablet,delayed release amiodarone 200 mg tablet 200 mg PO DAILY heart rate #90 tab s 10/23/24 12/12/24 Rx ascorbic acid (vitamin C) 1,000 mg 1,000 mg PO QDAY 10/23/24 History capsule furosemide 40 mg tablet 40 mg PO QAM #90 tabs 10/23/24 (more content not included)... Normal [facility] Platelet countOrdered By: Nichole Short on 12-12-2024 Platelets (Bld) [#/Vol] 168 10*3/uL 150-450 [facility] Potassium measurement (mass/ volume)Ordered By: Catalino Short on 12-12-2024 Potassium (Unsp spec) [Mass/Vol] 4.5 mmol/L 3.3-5.1 [facility] RBC Auto (Bld) [#/Vol]Ordere d By: Catalino Short on 12-12-2024 RBC (Bld) [#/Vol] 3.45 10*6/uL Low 4.6-6.2 [facility] Serum creatinine measurement (mass/volume)Ordered By: Catalino Short on 12-12-2024 Creatinine [Mass/Vol] 0.86 mg/dL 0.70-1.20 [facility] Serum globulin measurementOr dered By: Catalino Short on 12-12-2024 Globulin (S) [Mass/Vol] 2.4 g/dL 2.2-4.2 [facility] Serum glucose measurement (m ass/volume)Ordered By: Catalino Short on 12-12-2024 Glucose [Mass/Vol] 114 mg/dL High 70-99 [facility] Serum or plasma alanine alamo otransferase (ALT) measurementOrdered By: Catalino Short on 12-12-2024 ALT [Catalytic activity/Vol] 20 U/L <47 [facility] Serum or plasma albumin lenka urement (mass/volume)Ordered By: Catalino Short on 12-12-2024 Albumin [Mass/Vol] 4.0 g/dL 3.4-4.8 [facility] Serum or plasma albumin/glob ulin mass ratioOrdered By: Catalino Short on 12-12-2024 Albumin/Globulin [Mass ratio] 1.7 {ratio} 0.9-2.4 [facility] Serum or plasma alkaline yazan sphatase measurementOrdered By: Catalino Short on 12-12-2024 ALP [Catalytic activity/Vol] 68 U/L 40-129 [facility] Serum or plasma calcium lenka urement (mass/volume)Ordered By: Catalino Short on 12-12-2024 Calcium [Mass/Vol] 8.6 mg/dL 7.6-11.0 [facility] Serum or plasma ferritin aditya surement (mass/volume)Ordered By: Catalino Short on 12-12-2024 Ferritin [Mass/Vol] 585 ng/mL High 37-417 [facility] Serum or plasma iron saturat ion measurement (mass fraction)Ordered By: Catalino Short on 12-12-2024 Iron saturation [Mass fraction] 27.1 % 9-55 [facility] Serum or plasma urea nitroge n measurement (mass/volume)Ordered By: Ctaalino Short on 12-12-2024 Urea nitrogen [Mass/Vol] 11 mg/dL 4-19 [facility] Sodium levelOrdered By: Rickey Short on 12-12-2024 Sodium [Moles/Vol] 132 mmol/L Low 133-145 [facility] Total proteinOrdered By: Sal Short on 12-12-2024 Protein [Mass/Vol] 6.4 g/dL 5.9-8.4 [facility] White blood cell (WBC) count Ordered By: Catalino Short on 12-12-2024 WBC (Bld) [#/Vol] 5.7 10*3/uL 4.4-11.0 [facility] Absolute lymphocyte countOrd ered By: [facility] on 12-05-2024 Lymphocytes Auto (Unsp spec) [#/Vol] 1.31 10*3/uL 0.83-4.51 [facility] Absolute neutrophil countOrd ered By: [facility] on 12-05-2024 Neutrophils (Bld) [#/Vol] 3.8 10*3/uL 2.0-7.7 [facility] Anion gap in Serum or Plasma Ordered By: [facility] on 12-05-2024 Anion gap [Moles/Vol] 10 mmol/L 5- [facility] Automated lymphocyte count a s percentage of total leukocytesOrdered By: [facility] on 12-05-2024 Lymphocytes/100 WBC Auto (Unsp spec) 22.6 % - [facility] BUN/creatinine ratioOrdered By: [facility] on 12-05-2024 Urea nitrogen/Creatinine [Mass ratio] 15.0 mg/mg - [facility] Basophil percentageOrdered B y: [facility] on 12-05-2024 Basophils/100 WBC (Bld) 0.5 % 0- [facility] Bilirubin, totalOrdered By: [facility] on 12-05-2024 Bilirubin [Mass/Vol] 0.67 mg/dL 0.00-1.30 [facility] CBC W/Diff, Automatedon 11-26 Absolute Lymph 1.31 X10 3/uL Normal 0.83-4.51 [facility] Comment on above: Performed By: #### L 503.6550, L504.2610, L100.0100, L500.4050, L503.6030 ####[facility] [address] [place], [address] Absolute Neut 3.8 X10 3/uL Normal 2.0-7.7 [facility] Comment on above: Performed By: #### L 503.6550, L504.2610, L100.0100, L500.4050, L503.6030 ####[facility] [address] [place], [address] Basophils/100 WBC (Bld) 0.5 % Normal 0-1 [facility] Comment on above: Performed By: #### L 503.6550, L504.2610, L100.0100, L500.4050, L503.6030 ####[facility] [address] [place], [address] Eosinophils/100 WBC (Bld) 2.6 % Normal 0-5 [facility] Comment on above: Performed By: #### L 503.6550, L504.2610, L100.0100, L500.4050, L503.6030 ####[facility] [address] [place], [address] Erythrocyte distribution width (RBC) [Ratio] 15.9 % High 11.6-14.6 [facility] Comment on above: Performed By: #### L 503.6550, L504.2610, L100.0100, L500.4050, L503.6030 ####[facility] [address] [place], [address] Hematocrit (Bld) [Volume fraction] 35.2 % Low 40-54 [facility] Comment on above: Performed By: #### L 503.6550, L504.2610, L100.0100, L500.4050, L503.6030 ####[facility] [address] [place], [address] Hemoglobin (Bld) [Mass/Vol] 11.7 g/dL Low 13.0-16.5 [facility] Comment on above: Performed By: #### L 503.6550, L504.2610, L100.0100, L500.4050, L503.6030 ####[facility] [address] [place], [address] IG% 0.300 Normal 0.0-0.9 [facility] Comment on above: Result Comment: IG% - Immature Granulocytes (promyelocytes, myelocytes and metamyelocytes) > 1% indicates that a LEFT SHIFT is Present. Performed By: #### L 503.6550, L504.2610, L100.0100, L500.4050, L503.6030 ####[facility] [address] [place], [address] Lymphocytes/100 WBC (Bld) 22.6 % Normal 19-41 [facility] Comment on above: Performed By: #### L 503.6550, L504.2610, L100.0100, L500.4050, L503.6030 ####[facility] [address] [place], [address] MCH (RBC) [Entitic mass] 33.9 pg High 27.0-32.0 [facility] Comment on above: Performed By: #### L 503.6550, L504.2610, L100.0100, L500.4050, L503.6030 ####[facility] [address] [place], [address] MCHC (RBC) [Mass/Vol] 33.2 g/dL Normal 32-36 [facility] Comment on above: Performed By: #### L 503.6550, L504.2610, L100.0100, L500.4050, L503.6030 ####[facility] [address] [place], [address] MCV (RBC) [Entitic vol] 102.0 fL High 80-94 [facility] Comment on above: Performed By: #### L 503.6550, L504.2610, L100.0100, L500.4050, L503.6030 ####[facility] [address] [place], [address] Monocytes/100 WBC (Bld) 9.0 % Normal 0-10 [facility] Comment on above: Performed By: #### L 503.6550, L504.2610, L100.0100, L500.4050, L503.6030 ####[facility] [address] [place], [address] Neutrophils/100 WBC (Bld) 65.0 % Normal 47-70 [facility] Comment on above: Performed By: #### L 503.6550, L504.2610, L100.0100, L500.4050, L503.6030 ####[facility] [address] [place], [address] Nucleated RBC (Bld) [#/Vol] 0 10*3/uL Normal 0-5 [facility] Comment on above: Performed By: #### L 503.6550, L504.2610, L100.0100, L500.4050, L503.6030 ####[facility] [address] [place], [address] Platelet mean volume (Bld) [Entitic vol] 9.5 fL Normal 6.2-12.0 [facility] Comment on above: Performed By: #### L 503.6550, L504.2610, L100.0100, L500.4050, L503.6030 ####[facility] [address] [place], [address] Platelets (Bld) [#/Vol] 175 10*3/uL Normal 150-450 [facility] Comment on above: Performed By: #### L 503.6550, L504.2610, L100.0100, L500.4050, L503.6030 ####[facility] [address] [place], [address] RBC (Bld) [#/Vol] 3.45 10*6/uL Low 4.6-6.2 [facility] Comment on above: Performed By: #### L 503.6550, L504.2610, L100.0100, L500.4050, L503.6030 ####[facility] [address] [place], [address] RDW SD 59.7 fl High 35.1-43.9 [facility] Comment on above: Performed By: #### L 503.6550, L504.2610, L100.0100, L500.4050, L503.6030 ####[facility] [address] [place], [address] WBC (Bld) [#/Vol] 5.8 10*3/uL Normal 4.4-11.0 [facility] Comment on above: Performed By: #### L 503.6550, L504.2610, L100.0100, L500.4050, L503.6030 ####[facility] [address] [place], [address] Carbon dioxide, total [Moles /volume] in Central venous bloodOrdered By: Catalino Short on 12-05-2024 CO2 [Moles/Vol] 24.6 mmol/L 21.0-32.0 [facility] Chloride assayOrdered By: Nichole Short on 12-05-2024 Chloride [Moles/Vol] 96 mmol/L Low 98-108 [facility] Comprehensive Metabolic Prof ilon 12-05-2024 Albumin [Mass/Vol] 4.2 g/dL Normal 3.4-4.8 [facility] Comment on above: Order Comment: DR. Edith CHAMPAGNE GETS RESULTS FOR CBCD AND CMP ONLY Performed By: #### L 503.6550, L504.2610, L100.0100, L500.4050, L503.6030 ####[facility] [address] [place], [address] Albumin/Globulin [Mass ratio] 1.6 {ratio} Normal 0.9-2.4 [facility] Comment on above: Order Comment: DR. Edith CHAMPAGNE GETS RESULTS FOR CBCD AND CMP ONLY Performed By: #### L 503.6550, L504.2610, L100.0100, L500.4050, L503.6030 ####[facility] [address] [place], [address] ALK PHOS 60 U/L Normal 40-129 [facility] Comment on above: Order Comment: DR. Edith CHAMPAGNE GETS RESULTS FOR CBCD AND CMP ONLY Performed By: #### L 503.6550, L504.2610, L100.0100, L500.4050, L503.6030 ####[facility] [address] [place], [address] ALT [Catalytic activity/Vol] 21 U/L Normal <=46 [facility] Comment on above: Order Comment: DR. Edith CHAMPAGNE GETS RESULTS FOR CBCD AND CMP ONLY Performed By: #### L 503.6550, L504.2610, L100.0100, L500.4050, L503.6030 ####[facility] [address] [place], [address] AST [Catalytic activity/Vol] 28 U/L Normal <=37 [facility] Comment on above: Order Comment: DR. Edith CHAMPAGNE GETS RESULTS FOR CBCD AND CMP ONLY Performed By: #### L 503.6550, L504.2610, L100.0100, L500.4050, L503.6030 ####[facility] [address] [place], [address] Bilirubin [Mass/Vol] 0.67 mg/dL Normal 0.00-1.30 [facility] Comment on above: Order Comment: DR. Edith CHAMPAGNE GETS RESULTS FOR CBCD AND CMP ONLY Performed By: #### L 503.6550, L504.2610, L100.0100, L500.4050, L503.6030 ####[facility] [address] [place], [address] BUN/CRE 15.0 RATIO Normal 10-20 [facility] Comment on above: Order Comment: DR. Edith CHAMPAGNE GETS RESULTS FOR CBCD AND CMP ONLY Performed By: #### L 503.6550, L504.2610, L100.0100, L500.4050, L503.6030 ####[facility] [address] [place], [address] Calcium [Mass/Vol] 8.9 mg/dL Normal 7.6-11.0 [facility] Comment on above: Order Comment: DR. Edith CHAMPAGNE GETS RESULTS FOR CBCD AND CMP ONLY Performed By: #### L 503.6550, L504.2610, L100.0100, L500.4050, L503.6030 ####[facility] [address] [place], [address] Chloride [Moles/Vol] 96 mmol/L Low 98-108 [facility] Comment on above: Order Comment: DR. Edith CHAMPAGNE GETS RESULTS FOR CBCD AND CMP ONLY Performed By: #### L 503.6550, L504.2610, L100.0100, L500.4050, L503.6030 ####[facility] [address] [place], [address] CO2 [Moles/Vol] 24.6 mmol/L Normal 21.0-32.0 [facility] Comment on above: Order Comment: DR. Edith CHAMPAGNE GETS RESULTS FOR CBCD AND CMP ONLY Performed By: #### L 503.6550, L504.2610, L100.0100, L500.4050, L503.6030 ####[facility] [address] [place], [address] Creatinine [Mass/Vol] 0.94 mg/dL Normal 0.70-1.20 [facility] Comment on above: Order Comment: DR. Edith CHAMPAGNE GETS RESULTS FOR CBCD AND CMP ONLY Performed By: #### L 503.6550, L504.2610, L100.0100, L500.4050, L503.6030 ####[facility] [address] [place], [address] GAP 10 Normal 5-15 [facility] Comment on above: Order Comment: DR. Edith CHAMPAGNE GETS RESULTS FOR CBCD AND CMP ONLY Performed By: #### L 503.6550, L504.2610, L100.0100, L500.4050, L503.6030 ####[facility] [address] [place], [address] GFR/1.73 sq M.predicted among non-blacks MDRD (S/P/Bld) [Vol rate/Area] 81 mL/min/{1.73_m2} Normal >60 [facility] Comment on above: Order Comment: DR. Edith CHAMPAGNE GETS RESULTS FOR CBCD AND CMP ONLY Result Comment: mL/m in/1.73m2 CKD-EPI Creatinine Equation (2020) Performed By: #### L 503.6550, L504.2610, L100.0100, L500.4050, L503.6030 ####[facility] [address] [place], [address] Globulin (S) [Mass/Vol] 2.6 g/dL Normal 2.2-4.2 [facility] Comment on above: Order Comment: DR. Edith CHAMPAGNE GETS RESULTS FOR CBCD AND CMP ONLY Performed By: #### L 503.6550, L504.2610, L100.0100, L500.4050, L503.6030 ####[facility] [address] [place], [address] Glucose [Mass/Vol] 93 mg/dL Normal 70-99 [facility] Comment on above: Order Comment: DR. Edith CHAMPAGNE GETS RESULTS FOR CBCD AND CMP ONLY Performed By: #### L 503.6550, L504.2610, L100.0100, L500.4050, L503.6030 ####[facility] [address] [place], [address] Potassium [Moles/Vol] 4.9 mmol/L Normal 3.3-5.1 [facility] Comment on above: Order Comment: DR. Edith CHAMPAGNE GETS RESULTS FOR CBCD AND CMP ONLY Performed By: #### L 503.6550, L504.2610, L100.0100, L500.4050, L503.6030 ####[facility] [address] [place], [address] Sodium [Moles/Vol] 131 mmol/L Low 133-145 [facility] Comment on above: Order Comment: DR. Edith CHAMPAGNE GETS RESULTS FOR CBCD AND CMP ONLY Performed By: #### L 503.6550, L504.2610, L100.0100, L500.4050, L503.6030 ####[facility] [address] [place], [address] T PROT 6.9 g/dL Normal 5.9-8.4 [facility] Comment on above: Order Comment: DR. Edith CHAMPAGNE GETS RESULTS FOR CBCD AND CMP ONLY Performed By: #### L 503.6550, L504.2610, L100.0100, L500.4050, L503.6030 ####[facility] [address] [place], [address] Urea nitrogen [Mass/Vol] 14 mg/dL Normal 4-19 [facility] Comment on above: Order Comment: DR. Edith CHAMPAGNE GETS RESULTS FOR CBCD AND CMP ONLY Performed By: #### L 503.6550, L504.2610, L100.0100, L500.4050, L503.6030 ####[facility] [address] [place], [address] Eosinophil percentageOrdered By: Catalino Short on 12-05-2024 Eosinophils/100 WBC (Bld) 2.6 % 0-5 [facility] Erythrocyte distribution wid th ratioOrdered By: Catalino Short on 12-05-2024 Erythrocyte distribution width (RBC) [Ratio] 15.9 % High 11.6-14.6 [facility] Erythrocyte distribution wid th standard deviationOrdered By: Catalino Short on 12-05-2024 Erythrocyte distribution width (RBC) [Ratio] 59.7 fl High 35.1-43.9 [facility] Ferritinon 12-05-2024 Ferritin [Mass/Vol] 765 ng/mL High 37-417 [facility] Comment on above: Order Comment: DR. Edith CHAMPAGNE GETS RESULTS FOR CBCD AND CMP ONLY Performed By: #### L 100.0100, L500.2500 #### [facility] [address] [place], [address] Glomerular filtration rate ( GFR) estimation/1.73 sq m using serum, plasma, or whole bOrdered By: Catalino Short on 12-05-2024 GFR/1.73 sq M.predicted among non-blacks MDRD (S/P/Bld) [Vol rate/Area] 81 mL/min/{1.73_m2} >60 [facility] Comment on above: mL/min/1.73m2 CKD-EP I Creatinine Equation (2020) Hematocrit Auto (Bld) [Volum e fraction]Ordered By: Catalino Short on 12-05-2024 Hematocrit (Bld) [Volume fraction] 35.2 % Low 40-54 [facility] Hemoglobin measurementOrdere d By: Catalino Short on 12-05-2024 Hemoglobin (Bld) [Mass/Vol] 11.7 g/dL Low 13.0-16.5 [facility] Immature granulocytes/100 WB C Auto (Bld)Ordered By: Catalino Short on 12-05-2024 Immature granulocytes/100 WBC (Bld) 0.300 % 0.0-0.9 [facility] Comment on above: IG% - Immature Granu locytes (promyelocytes, myelocytes and metamyelocytes) > 1% indicates that a LEFT SHIFT is Present. Iron measurement (mass/mass) Ordered By: Catalino Short on 12-05-2024 Iron (Unsp spec) [Mass/Mass] 55 ug/dL Low 65-175 [facility] Iron+Iron Binding Capacityon 07-10-2025 Iron [Mass/Vol] 55 ug/dL Low 65-175 [facility] Comment on above: Order Comment: DR. Edith CHAMPAGNE GETS RESULTS FOR CBCD AND CMP ONLY Performed By: #### L 100.0100, L500.2500 #### [facility] [address] [place], [address] IRON SATURATION 21.0 Normal 9-55 [facility] Comment on above: Order Comment: DR. Edith CHAMPAGNE GETS RESULTS FOR CBCD AND CMP ONLY Performed By: #### L 100.0100, L500.2500 #### [facility] [address] [place], [address] TIBC 260 ug/dL Normal 250-450 [facility] Comment on above: Order Comment: DR. Edith CHAMPAGNE GETS RESULTS FOR CBCD AND CMP ONLY Performed By: #### L 100.0100, L500.2500 #### [facility] [address] [place], [address] UIBC 205 ug/dL Low 228-428 [facility] Comment on above: Order Comment: DR. Edith CHAMPAGNE GETS RESULTS FOR CBCD AND CMP ONLY Performed By: #### L 100.0100, L500.2500 #### [facility] [address] [place], [address] LDHon 12-05-2024 LDH 268 U/L High 87-241 [facility] Comment on above: Order Comment: DR. Edith CHAMPAGNE GETS RESULTS FOR CBCD AND CMP ONLY1 Performed By: #### L 100.0100, L500.2500 #### [facility] [address] [place], [address] Laboratory - Chemistry and C hemistry - challengeOrdered By: Catalino Short on 12-05-2024 AST [Catalytic activity/Vol] 28 U/L <38 [facility] Lactate dehydrogenase (LDH) measurementOrdered By: Catalino Short on 12-05-2024 LDH [Catalytic activity/Vol] 268 U/L High 87-241 [facility] MCV (mean corpuscular volume ) determinationOrdered By: Catalino Short on 12-05-2024 MCV (RBC) [Entitic vol] 102.0 fL High 80-94 [facility] Mean corpuscular hemoglobin (MCH) determinationOrdered By: Catalino Short on 12-05-2024 MCH (RBC) [Entitic mass] 33.9 pg High 27.0-32.0 [facility] Mean corpuscular hemoglobin concentration (MCHC) determinationOrdered By: Catalino Short on 12-05-2024 MCHC (RBC) [Mass/Vol] 33.2 g/dL 32-36 [facility] Mean platelet volume determi nationOrdered By: Catalino Short on 12-05-2024 Platelet mean volume (Bld) [Entitic vol] 9.5 fL 6.2-12.0 [facility] Monocyte percentageOrdered B y: Catalino Short on 12-05-2024 Monocytes/100 WBC (Bld) 9.0 % 0-10 [facility] Neutrophil percentageOrdered By: Catalino Short on 12-05-2024 Neutrophils/100 WBC (Bld) 65.0 % 47-70 [facility] No Panel InformationOrdered By: Catalino Short on 12-05-2024 Unsaturated Iron Binding Capacity 205 ug/dL Low 228-428 [facility] 28 U/L <38 [facility] 205 ug/dL Low 228-428 [facility] Nucleated red blood cell per centageOrdered By: Catalino Short on 12-05-2024 Nucleated RBC/100 WBC (Bld) [Ratio] 0 % 0-5 [facility] Platelet countOrdered By: Nichole Short on 12-05-2024 Platelets (Bld) [#/Vol] 175 10*3/uL 150-450 [facility] Potassium measurement (mass/ volume)Ordered By: Catalino Short on 12-05-2024 Potassium (Unsp spec) [Mass/Vol] 4.9 mmol/L 3.3-5.1 [facility] RBC Auto (Bld) [#/Vol]Ordere d By: Catalino Short on 12-05-2024 RBC (Bld) [#/Vol] 3.45 10*6/uL Low 4.6-6.2 [facility] Serum creatinine measurement (mass/volume)Ordered By: Catalino Short on 12-05-2024 Creatinine [Mass/Vol] 0.94 mg/dL 0.70-1.20 [facility] Serum globulin measurementOr dered By: Catalino Short on 12-05-2024 Globulin (S) [Mass/Vol] 2.6 g/dL 2.2-4.2 [facility] Serum glucose measurement (m ass/volume)Ordered By: Catalino Short on 12-05-2024 Glucose [Mass/Vol] 93 mg/dL 70-99 [facility] Serum or plasma alanine alamo otransferase (ALT) measurementOrdered By: Catalino Short on 12-05-2024 ALT [Catalytic activity/Vol] 21 U/L <47 [facility] Serum or plasma albumin lenka urement (mass/volume)Ordered By: Catalino Short on 12-05-2024 Albumin [Mass/Vol] 4.2 g/dL 3.4-4.8 [facility] Serum or plasma albumin/glob ulin mass ratioOrdered By: Catalino Short on 12-05-2024 Albumin/Globulin [Mass ratio] 1.6 {ratio} 0.9-2.4 [facility] Serum or plasma alkaline yazan sphatase measurementOrdered By: Catalino Short on 12-05-2024 ALP [Catalytic activity/Vol] 60 U/L 40-129 [facility] Serum or plasma calcium lenka urement (mass/volume)Ordered By: Catalino Short on 12-05-2024 Calcium [Mass/Vol] 8.9 mg/dL 7.6-11.0 [facility] Serum or plasma ferritin aditya surement (mass/volume)Ordered By: Catalino Short on 12-05-2024 Ferritin [Mass/Vol] 765 ng/mL High 37-417 [facility] Serum or plasma iron saturat ion measurement (mass fraction)Ordered By: Catalino Short on 12-05-2024 Iron saturation [Mass fraction] 21.0 % 9-55 [facility] Serum or plasma urea nitroge n measurement (mass/volume)Ordered By: Catalino Short on 12-05-2024 Urea nitrogen [Mass/Vol] 14 mg/dL 4-19 [facility] Sodium levelOrdered By: Rickey Lopezh on 12-05-2024 Sodium [Moles/Vol] 131 mmol/L Low 133-145 [facility] Total proteinOrdered By: Sal mujica Deja on 12-05-2024 Protein [Mass/Vol] 6.9 g/dL 5.9-8.4 [facility] White blood cell (WBC) count Ordered By: Catalino Deja on 12-05-2024 WBC (Bld) [#/Vol] 5.8 10*3/uL 4.4-11.0 [facility] Orthopedic Visit Reporton Orthopedic Visit Report [facility] [address] [place] [address] [address] [place] [address] OFFICE VISIT Date of Service: 11/25/24 MR#: [id number] Acct: [id number] Name: BRYCE ANN Rep #: [id number] : 1940 Provider: Dr. Rui wisdom MD Age/Sex: 84/M Location: [facility] Status: Signed Intake Vital Signs 10/25/24 11:34 11/25/24 15:24 Height 5 ft 1 in 5 ft 1 in Weight: 140 lb BMI 26.4 Intake Visit Reasons: RIGHT SHOULDER Chief Complaint: Right shoulder pain Accompanied by: Self Is patient in pain?: Yes Pain scale (1-10): 10 Allergies No Known Allergies Allergy (Verified 11/25/24 15:26) Medications ???Medication ???Instructions ???Recorded ???Confirmed ???Type tamsulosin 0.4 mg capsule 0.4 mg PO DAILY@1800 Retention 11/25/24 History finasteride 1 mg tablet 5 mg PO DAILY prostate 12/30/20 History golimumab 12.5 mg/mL intravenous 12.5 mg IV .[id number] injection 08/1811/25/24 History solution (Simponi ARIA) gabapentin 300 mg capsule 300 mg PO TID PRN PRN NERVE PAIN 0 10/20/22 11/25/24 History trazodone 100 mg tablet 100 mg PO QHS Check with primary 0 11/14/22 11/25/24 History doctor acetaminophen 500 mg tablet 1,000 mg (2 x 500 mg) PO Q8 #0 tab s 01/24/23 11/25/24 Rx denosumab 60 mg/mL subcutaneous 60 mg subcut [id number] #1 mL 11/25/24 Rx syringe (Prolia) methotrexate sodium 2.5 mg tablet 20 mg PO QWEEK 06/01/23 11/25/24 History sulfasalazine 500 mg 0.5 g PO Q12H 06/01/23 11/25/24 Hi story tablet,delayed release amiodarone 200 mg tablet 200 mg PO DAILY heart rate #90 tab s 10/23/24 11/25/24 Rx ascorbic acid (vitamin C) 1,000 mg 1,000 mg PO QDAY 10/23/24 History capsule atorvastatin 40 mg tablet (Lipitor) 40 mg PO QHS Cholesterol #90 ta bs 10/23/24 11/25/24 Rx furosemide 40 mg tablet 40 mg PO QAM #90 tabs 10/23/24 Rx hydrocodone 7.5 mg-acetaminophen 1 tab PO BID pain 10/23/24 5 History 325 mg tablet mecobalamin (vitamin B12) 2,500 mcg PO DAILY 10/23/24 11/25/24 His tory mcg chewable tablet mirtazapine 15 mg tablet 7.5 mg PO QHS 10/23/24 11/25/24 Hi story oxybutynin chloride 10 mg 10 mg PO QDAY 10/23/24 11/25/24 Hi story tablet,extended release 24 hr rivaroxaban 15 mg tablet (Xarelto) 15 mg PO QDAY 90 days #90 tabs 0 10/23/24 11/25/24 Rx spironolactone 25 mg tablet 25 mg PO DAILY water pill #90 tabs 10/23/24 11/25/24 Rx turmeric root extract 500 mg 500 mg PO QDAY 10/23/24 11/25/24 H istory capsule Have you fallen in the past year?: No PFSH Medical History Coronary artery disease Right rotator cuff tear arthropathy Right shoulder pain intermediate (current) use of anticoagulants Secondary adrenal insufficiency Vitamin D deficiency Chronic edema Wears glasses Former smoker History of stress test History of heart attack Anemia Atherosclerotic heart disease of [place] coronary artery without angina pectoris BPH (benign prostatic hyperplasia) GERD (gastroesophageal reflux disease) Lumbar spinal stenosis Atrial fibrillation PAT (paroxysmal atrial tachycardia) SVT (supraventricular tachycardia) Rheumatoid arthritis Surgical History History of cardiac catheterization History of coronary artery stent placement Hx of colectomy Hx of transurethral resection of prostate Hx of laminectomy History of lumbar surgery History of coronary artery stent placement (08/06/20) H/O colonoscopy S/P left colectomy S/P appendectomy S/P hemorrhoidectomy S/P vasectomy S/P laparoscopic cholecystectomy H/O umbilical hernia repair S/P inguinal hernia repair S/P rotator cuff repair S/P cataract surgery Family History Father CVA (cerebral vascular accident) Brother CAD (coronary artery disease) CABG X 3 Mother CVA (cerebral vascular accident) Grandfather Cancer prostate Social History household members: none housing: house current occupational status: retired Smoking Status: Former smoker how long ago did patient quit smokin years ago alcohol intake: never substance use type: does not use diet: low salt caffeine: Yes Type: coffee Number of servings: 4 HPI RIGHT SHOULDER Details: This documentation accurately reflects the service provided and the decisions made by me, Dr. Rui Robbins MD 11/25/24 1015. Part of today???s visit was documented by [ ], acting as scribe. BRYCE ANN is a 84 year old M here today for follow-up right shoulder MRI and CT scan for surgical (more content not included)... Normal [facility] Magnetic resonance imaging r eportOrdered By: Tierney Randall on 11-07-2024 Study report [facility] Imaging Services [address] [place] [address] Upper Ext Joint Only(Routine) MR#: [id number] Acct: [id number] Name: MARISSABRYCE OCAMPO Cecile Rep #: [id number] : 1940 M 83 From: Viktor Randall MD PCP: Dr. Jorge Hilton MD Status: REG Ron INFANTE Study:Upper Ext Joint Only(Routine) Date of Exam: 11/06/24 Exam# [id number] Ordering Dr: Rui Robbins MD PROCEDURE: UPPER EXT JOINT ONLY(ROUTINE) 11/06/2024 REASON FOR EXAM: PLANNING FOR RTSA TECHNIQUE: MRI of the right upper Extremity. Multiplanar and multisequence images were obtained without IV contrast administration. COMPARISON: COMPARISON : CT scan on 10/24/2024. FINDINGS: Heterogeneous signal intensity of the visualized bone marrow, probably osteopenia. Type III acromion. 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 Findings are demonstrated by joint space narrowing, osteophyte formation and degenerative periarticular bone marrow changes. Narrowing of the supraspinatus outlet and impingement on its myotendinous junction. Surgical changes of the supraspinatus tendon. Tendinosis with moderate partial thickness tear of the insertional fibers of thesupraspinatus tendon. Severe chronic atrophy of the supraspinatus muscle. Associated edema/effusion. Tendinosis with moderate partial thickness tear of the insertional fibers of theinfraspinatus tendon. Severe chronic atrophy of the infraspinatus muscle. Associated edema/effusion. Tendinosis with moderate partial thickness tear of the insertional fibers of thesubscapularis tendon. Severe chronic atrophy of the subscapularis muscle. Associated edema/effusion. Atrophy of the teres minor muscle and tendinosis of the insertional fibers of its tendon. Elevation of the humeral head with narrowing of the subacromial space. Degenerative fibrocystic changes at the humeral insertion of the rotator cuff tendons. Fluid signal and edema in the subdeltoid/subacromial bursa suggestive of bursitis and/or impingement. The remaining visualized osseous elements are intact with no evidence of fracture or dislocation. The remaining marrow signal is within normal limits. The visualized hyaline cartilage is diffusely degenerated. Severe degenerative joint disease of the glenohumeral joint. The glenoid labrum is diffusely truncated and macerated. There is moderate glenohumeral joint effusion. Medial subluxation of the biceps tendon. Moderate bicipital tendinosis. MRI/Upper Ext Joint Only(Routine) IMPRESSION: 1. Heterogeneous signal intensity of the visualized bone marrow, probably osteopenia. 2. Type III acromion. 3. 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 4. Findings are demonstrated by joint space narrowing, osteophyte formation and degenerative periarticular bone marrow changes. 5. Narrowing of the supraspinatus outlet and impingement on its myotendinous junction. 6. Surgical changes of the supraspinatus tendon. 7. Tendinosis with moderate partial thickness tear of the insertional fibers of the supraspinatus tendon. Severe chronic atrophy of the supraspinatus muscle. Associated edema/effusion. 8. Tendinosis with moderate partial thickness tear of the insertional fibers of the infraspinatus tendon. Severe chronic atrophy of the infraspinatus muscle. Associated edema/effusion. 9. Tendinosis with moderate partial thickness tear of the insertional fibers of the subscapularis tendon. Severe chronic atrophy of the subscapularis muscle. Associated edema/effusion. 10. Atrophy of the teres minor muscle and tendinosis of the insertional fibers of its tendon. 11. 12. Elevation of the humeral head with narrowing of the subacromial space. 13. Degenerative fibrocystic changes at the humeral insertion of the rotator cuff tendons. 14. Fluid signal and edema in the subdeltoid/subacromial bursa suggestive of bursitis and/or impingement. Reading Location: [place] [address] CC: Dr. Jorge Hilton MD; Dr. Rui Robbins MD ~ Java Programming Professor: Signed [facility] Upper Ext Joint Only(Routine )on 11-06-2024 Upper Ext Joint Only(Routine) [facility] Imaging Services [address] [place] [id number] Upper Ext Joint Only(Routine) MR#: [id number] Acct: [id number] Name: BRYCE ANN Cecile Rep #: [id number] : 1940 M 83 From: Tierney guerin MD PCP: Dr. Jorge Hilton MD Status: [facility] CLI Study: Upper Ext Joint Only(Routine) Date of Exam: 0 11/06/24 Exam# [id number] Ordering Dr: Rui Robbins MD PROCEDURE: UPPER EXT JOINT ONLY(ROUTINE) 11/06/2024 REASON FOR EXAM: PLANNING FOR RTSA TECHNIQUE: MRI of the right upper Extremity. Multiplanar and multisequence images were obtained without IV contrast administration. COMPARISON: COMPARISON : CT scan on 10/24/2024. FINDINGS: Heterogeneous signal intensity of the visualized bone marrow, probably osteopenia. Type III acromion. 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 Findings are demonstrated by joint space narrowing, osteophyte formation and degenerative periarticular bone marrow changes. Narrowing of the supraspinatus outlet and impingement on its myotendinous junction. Surgical changes of the supraspinatus tendon. Tendinosis with moderate partial thickness tear of the insertional fibers of the supraspinatus tendon. Severe chronic atrophy of the supraspinatus muscle. Associated edema/effusion. Tendinosis with moderate partial thickness tear of the insertional fibers of the infraspinatus tendon. Severe chronic atrophy of the infraspinatus muscle. Associated edema/effusion. Tendinosis with moderate partial thickness tear of the insertional fibers of the subscapularis tendon. Severe chronic atrophy of the subscapularis muscle. Associated edema/effusion. Atrophy of the teres minor muscle and tendinosis of the insertional fibers of its tendon. Elevation of the humeral head with narrowing of the subacromial space. Degenerative fibrocystic changes at the humeral insertion of the rotator cuff tendons. Fluid signal and edema in the subdeltoid/subacromial bursa suggestive of bursitis and/or impingement. The remaining visualized osseous elements are intact with no evidence of fracture or dislocation. The remaining marrow signal is within normal limits. The visualized hyaline cartilage is diffusely degenerated. Severe degenerative joint disease of the glenohumeral joint. The glenoid labrum is diffusely truncated and macerated. There is moderate glenohumeral joint effusion. Medial subluxation of the biceps tendon. Moderate bicipital tendinosis. MRI/Upper Ext Joint Only(Routine) IMPRESSION: 1. Heterogeneous signal intensity of the visualized bone marrow, probably osteopenia. 2. Type III acromion. 3. 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 4. Findings are demonstrated by joint space narrowing, osteophyte formation and degenerative periarticular bone marrow changes. 5. Narrowing of the supraspinatus outlet and impingement on its myotendinous junction. 6. Surgical changes of the supraspinatus tendon. 7. Tendinosis with moderate partial thickness tear of the insertional fibers of the supraspinatus tendon. Severe chronic atrophy of the supraspinatus muscle. Associated edema/effusion. 8. Tendinosis with moderate partial thickness tear of the insertional fibers of the infraspinatus tendon. Severe chronic atrophy of the infraspinatus muscle. Associated edema/effusion. 9. Tendinosis with moderate partial thickness tear of the insertional fibers of the subscapularis tendon. Severe chronic atrophy of the subscapularis muscle. Associated edema/effusion. 10. Atrophy of the teres minor muscle and tendinosis of the insertional fibers of its tendon. 11. 12. Elevation of the humeral head with narrowing of the subacromial space. 13. Degenerative fibrocystic changes at the humeral insertion of the rotator cuff tendons. 14. Fluid signal and edema in the subdeltoid/subacromial bursa suggestive of bursitis and/or impingement. Reading Location: [place] [address] CC: Dr. Jorge Hilton MD; Dr. Rui Robbins MD Java Programming Professor: Signed [facility] MR/[facility]on 11-05-2024 MR/BMS.S [facility] Vascular Surgery [address] [place] [address] OFFICE VISIT Date of Service: 11/05/24 MR#: [id number] Acct: [id number] Name: MARISSABRYCE OCAMPO Cecile Rep #: [id number] : 1940 Provider: SHOSHANA Castro Age/Sex: 83/M Location: [facility] Status: Signed Intake Vital Signs 09/26/24 14:32 10/25/24 11:34 11/05/24 13:29 Height 5 ft 1 in 5 ft 1 in Weight: 140 lb BP 109/54 L Blood Pressure Location Lt brachial Position Sitting Respiration 16 Pulse 62 Pulse Source Monitor Temp 97.8 F Temp Source Temporal Pulse Oximetry (%) 95 Oxygen Delivery Method room air Intake Visit Reasons: Peripheral vascular disease Is patient in pain?: Yes Allergies No Known Allergies Allergy (Verified 11/05/24 13:31) Medications ???Medication ???Instructions ???Recorded ???Confirmed ???Type tamsulosin 0.4 mg capsule 0.4 mg PO DAILY@1800 Retention 11/05/24 History finasteride 1 mg tablet 5 mg PO DAILY prostate 12/30/20 History golimumab 12.5 mg/mL intravenous 12.5 mg IV .[id number] injection 08/1811/05/24 History solution (Simponi ARIA) gabapentin 300 mg capsule 300 mg PO TID PRN PRN NERVE PAIN 0 10/20/22 11/05/24 History trazodone 100 mg tablet 100 mg PO QHS Check with primary 0 11/14/22 11/05/24 History doctor acetaminophen 500 mg tablet 1,000 mg (2 x 500 mg) PO Q8 #0 tab s 01/24/23 11/05/24 Rx denosumab 60 mg/mL subcutaneous 60 mg subcut [id number] #1 mL 11/05/24 Rx syringe (Prolia) methotrexate sodium 2.5 mg tablet 20 mg PO QWEEK 06/01/23 11/05/24 History sulfasalazine 500 mg 0.5 g PO Q12H 06/01/23 11/05/24 Hi story tablet,delayed release amiodarone 200 mg tablet 200 mg PO DAILY heart rate #90 tab s 10/23/24 11/05/24 Rx ascorbic acid (vitamin C) 1,000 mg 1,000 mg PO QDAY 10/23/24 History capsule atorvastatin 40 mg tablet (Lipitor) 40 mg PO QHS Cholesterol #90 ta bs 10/23/24 11/05/24 Rx furosemide 40 mg tablet 40 mg PO QAM #90 tabs 10/23/2403/22 Rx hydrocodone 7.5 mg-acetaminophen 1 tab PO BID pain 10/23/24 5 History 325 mg tablet mecobalamin (vitamin B12) 2,500 mcg PO DAILY 10/23/24 11/05/24 His tory mcg chewable tablet mirtazapine 15 mg tablet 7.5 mg PO QHS 10/23/24 11/05/24 Hi story oxybutynin chloride 10 mg 10 mg PO QDAY 10/23/24 11/05/24 Hi story tablet,extended release 24 hr rivaroxaban 15 mg tablet (Xarelto) 15 mg PO QDAY 90 days #90 tabs 0 10/23/24 11/05/24 Rx spironolactone 25 mg tablet 25 mg PO DAILY water pill #90 tabs 10/23/24 11/05/24 Rx turmeric root extract 500 mg 500 mg PO QDAY 10/23/24 11/05/24 H istory capsule Have you fallen in the past year?: No PFSH Medical History Coronary artery disease Right rotator cuff tear arthropathy 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 Secondary adrenal insufficiency Vitamin D deficiency Chronic edema Wears glasses Former smoker History of stress test History of heart attack Anemia Atherosclerotic heart disease of [place] coronary artery without angina pectoris BPH (benign prostatic hyperplasia) GERD (gastroesophageal reflux disease) Lumbar spinal stenosis Atrial fibrillation PAT (paroxysmal atrial tachycardia) SVT (supraventricular tachycardia) Rheumatoid arthritis Surgical History History of cardiac catheterization History of coronary artery stent placement Hx of colectomy Hx of transurethral resection of prostate Hx of laminectomy History of lumbar surgery History of coronary artery stent placement (08/06/20) H/O colonoscopy S/P left colectomy S/P appendectomy S/P hemorrhoidectomy S/P vasectomy S/P laparoscopic cholecystectomy H/O umbilical hernia repair S/P inguinal hernia repair S/P rotator cuff repair S/P cataract surgery Family History Father CVA (cerebral vascular accident) Brother CAD (coronary artery disease) CABG X 3 Mother CVA (cerebral vascular accident) Grandfather Cancer prostate Social History household members: none housing: house current occupational status: retired Smoking Status: Former smoker how long ago did patient quit smokin years ago alcohol intake: never substance use type: does not use diet: low salt caffeine: Yes Type: coffee Number of servings: 4 HPI HPI HPI: BRYCE ANN, is a 83 M who presents to the office today for evaluation of bilateral lower extremity edema. He reports that he has had bilateral lower extremity edema for decades, even since his teens to s (more content not included)... Normal [facility] Extremity Upper without Cont raon 10-24-2024 Extremity Upper without Contra [facility] Imaging Services [address] [place] [address] Extremity Upper without Contra MR#: [id number] Acct: [id number] Name: BRYCE ANN Rep #: [id number] : 1940 M 83 From: Nicko andrade MD PCP: Dr. Jorge Hilton MD Status: REG CLI Study: Extremity Upper without Contra Date of Exam: 0 10/24/24 Exam# [id number] Ordering Dr: Rui Robbins MD PROCEDURE: EXTREMITY UPPER WITHOUT CONTRA 10/24/2024 REASON FOR EXAM: BLUEPRINT PLANNING FOR REVERSE SHOULDER TECHNIQUE: Axial CT images of the right shoulder obtained without intravenous contrast. Coronal and Sagittal reconstruction series were provided. One or more dose reduction techniques were used (e.g., Automated exposure control, adjustment of the mA and/or kV according to patient size, use of iterative reconstruction technique RADIATION DOSE SUMMARY: CTDlvol: 22.12 mGy DLP: 585.81 mGycm COMPARISON: None FINDINGS: Bones: Evidence of prior rotator cuff surgery. Joints: Marked degree of joint space narrowing of the glenohumeral joint with degenerative spur formation of the humeral head. There cephalic migration of the humeral head with decreased space between the humeral head and acromion. This is suggestive of rotator cuff issues. Soft Tissues: Soft tissue swelling. CT/Extremity Upper without Contra IMPRESSION: Marked degree of joint space narrowing of the right shoulder with degenerative spur formation. Cephalic migration of the humerus with decreased distance between the humeral head in the acromion in keeping with rotator cuff pathology. Reading Location: [facility] CC: Dr. Jorge Hilton MD; Dr. Rui Robbins MD Java Programming Professor: Signed Normal [facility] Cardiology Visit Reporton Cardiology Visit Report [facility] [address] [place] [address] OFFICE VISIT Date of Service: 10/23/24 MR#: [id number] Acct: [id number] Name: BRYCE ANN Rep #: [id number] : 1940 Provider: Dr. Jem Mirza MD Age/Sex: 83/M Location: [facility] Status: Signed HPI HPI History of Present Illness Details: This gentleman has history of coronary artery disease with drug-eluting stent to his obtuse marginal and chronic total occlusion of his LAD. He was last seen in our office in 2022. He is only coming to the office today to refill Xarelto. Denies any complaints today. No chest pains. No shortness of breath. Denies any palpitations. No orthopnea PND. He has chronic nonpitting lower extremity edema which remains unchanged. Denies any bleeding issues. Denies any frequent falls. 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 Required: No Accompanied by: Self Is patient in pain?: Yes (chronic; unchanged; RA) Allergies No Known Allergies Allergy (Verified 10/23/24 13:46) Medications ???Medication ???Instructions ???Recorded ???Confirmed ???Type tamsulosin 0.4 mg capsule 0.4 mg PO DAILY@1800 Retention 10/14/24 History finasteride 1 mg tablet 5 mg PO DAILY prostate 12/30/20 History golimumab 12.5 mg/mL intravenous 12.5 mg IV .[id number] injection /0 08/1810/14/24 History solution (Simponi ARIA) gabapentin 300 mg capsule 300 mg PO TID PRN PRN NERVE PAIN 0 10/20/22 10/14/24 History trazodone 100 mg tablet 100 mg PO QHS Check with primary 0 11/14/22 10/14/24 History doctor acetaminophen 500 mg tablet 1,000 mg (2 x 500 mg) PO Q8 #0 tab s 01/24/23 10/14/24 Rx denosumab 60 mg/mL subcutaneous 60 mg subcut [id number] #1 mL 10/14/24 Rx syringe (Prolia) methotrexate sodium 2.5 mg tablet 20 mg PO QWEEK 06/01/23 10/14/24 History sulfasalazine 500 mg 0.5 g PO Q12H 06/01/23 10/14/24 Hi story tablet,delayed release tramadol 50 mg tablet 50 mg PO Q8H PRN pain 06/01/23 History atorvastatin 40 mg tablet (Lipitor) 40 mg PO QHS Cholesterol #90 ta bs 12/04/23 10/14/24 Rx hydrocodone-acetaminophen 5-325mg 1 tab PO TID 12/14/23 10/14/24 Hi story 5mg-325mg amiodarone 200 mg tablet 200 mg PO DAILY heart rate #90 tab s 12/22/23 10/14/24 Rx spironolactone 25 mg tablet 25 mg PO DAILY water pill #90 tabs 01/12/24 10/14/24 Rx rivaroxaban 15 mg tablet (Xarelto) 15 mg PO DINNER 90 days #90 tabs 09/25/24 10/14/24 Rx ascorbic acid (vitamin C) 1,000 mg 1,000 mg PO QDAY 10/23/24 History capsule furosemide 40 mg tablet 40 mg PO QAM 10/23/24 10/23/24 His tory hydrocodone 7.5 mg-acetaminophen 1 tab PO BID PRN 10/23/24 10/23/24 History 325 mg tablet mecobalamin (vitamin B12) 2,500 mcg PO DAILY 10/23/24 10/23/24 His tory mcg chewable tablet mirtazapine 15 mg tablet 7.5 mg PO QHS 10/23/24 10/23/24 Hi story oxybutynin chloride 10 mg 10 mg PO QDAY 10/23/24 10/23/24 Hi story tablet,extended release 24 hr turmeric root extract 500 mg 500 mg PO QDAY 10/23/24 10/23/24 H istory capsule Ejection fraction %: 50 Have you fallen in the past year?: Yes (no major injuries; in February 2024) [facility] Medical History (Updated 10/23/24 @ 14:[address] 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 Secondary adrenal insufficiency Vitamin D deficiency Chronic edema Wears glasses Former smoker History of stress test History of heart attack Anemia Atherosclerotic heart disease of [place] coronary artery without angina pectoris BPH (benign prostatic hyperplasia) GERD (gastroesophageal reflux disease) Lumbar spinal stenosis Atrial fibrillation PAT (paroxysmal atrial tachycardia) SVT (supraventricular tachycardia) Rheumatoid arthritis Surgical History History of cardiac catheterization History of coronary artery stent placement Hx of colectomy Hx of transurethral resection of prostate Hx of laminectomy History of lumbar surgery History of coronary artery stent placement (08/06/20) H/O colonoscopy S/P left colectomy S/P appendectomy S/P hemorrhoidectomy S/P vasectomy S/P laparoscopic cholecystectomy H/O umbilical hernia repair S/P inguinal hernia repair S/P rotator cuff repair S/P cataract surgery Family History Father CVA (cerebral vascular accident) Broth (more content not included)... Normal [facility] [id number] 10-05-2024 [facility] Misc. COMMENT Normal . [facility] Comment on above: Order Comment: [id number] Result Comment: Test Ordered: [id number] Amphetamines Screen, Urine Negative ng/mL UI Reference Range: Joiwfx=436 Amphetamine test includes Amphetamine and Methamphetamine. Barbiturates Negative ng/mL UI Reference Range: Jfmflt=004 Benzodiazepines Negative ng/mL UI Reference Range: Srwzfc=156 Cocaine (Metab.), Urine Negative ng/mL UI Reference Range: Fwoklg=063 Opiates Note: ng/mL UI See Final Results Reference Range: Tjlwed=985 Opiate test includes Codeine, Morphine, Hydromorphone, Hydrocodone. Opiates Positive [A ] UI Reference Range: Tpzbqf=408 Opiate test includes Codeine, Morphine, Hydromorphone, Hydrocodone. Codeine Negative UI Reference Range: Pgisap=502 Morphine Negative UI Reference Range: Wesloz=456 Hydromorphone Positive [A ] UI Reference Range: . Hydromorphone Conf, MS, UR 146 ng/mL UI Reference Range: Vezvpb=183 Hydrocodone Positive [A ] UI Reference Range: . Hydrocodone Conf, MS, UR 773 ng/mL UI Reference Range: Bexfxh=470 6-Acetylmorphine, Urine Negative ng/mL UI Reference Range: Cutoff=10 Oxycodone/Oxymorphone, Urine Negative ng/mL UI Reference Range: Jdqwzp=154 Test includes Oxycodone and Oxymorphone PCP, Urine Negative ng/mL UI Reference Range: Cutoff=25 Methadone Screen, Urine Negative ng/mL UI Reference Range: Elatws=065 Propoxyphene, Urine Negative ng/mL UI Reference Range: Zvolsj=562 Fentanyl, Urine Negative ng/mL UI Reference Range: Cutoff=2.0 Test includes Fentanyl and Norfentanyl This test was developed and its performance characteristics determined by [facility]. It has not been cleared or approved by the Food and Drug Administration. Tramadol Negative ng/mL UI Reference Range: Jhhnei=194 Buprenorphine, Urine Negative ng/mL UI Reference Range: Cutoff=10 Creatinine, Urine 34.9 mg/dL UI Reference Range: 20.0-300.0 pH, Urine 5.0 UI Reference Range: 4.5-8.9 Performed at: [facility] [address] [id number] Back Shoe Cutter: Juan Maloney PhD, Phone: [phone] Performed at: [address] [id number] Back Shoe Cutter: Adonay Tucker PhD, Phone: [phone] Performed By: #### L 100.0100, L500.2500 #### [facility] [address] [place], [place] [address], [address] Amphetamine detection with 1 000 ng/mL as cutoffOrdered By: Lorelei Rust on 10-01-2024 Amphetamines Screen method >1000 ng/mL Ql (U) Negative < 200 ng/mL [facility] No Panel InformationOrdered By: Lorelei Rust on 10-01-2024 Urine Buprenorphine Qualitative Negative < 200 ng/mL [facility] Urine Oxycodone Screen Negative < 100 ng/mL [facility] Negative < 200 ng/mL [facility] Quantitative urine opiates m easurementOrdered By: Lorelei Rust on 10-01-2024 Opiates Ql (U) Positive < 300 ng/mL [facility] Comment on above: If confirmation test ing is needed, a separate order will be required to send out testing to the reference laboratory. Screening urine fentanyl aditya surementOrdered By: Lorelei Rust on 10-01-2024 fentaNYL Screen Ql (U) Negative [facility] Urine Drug Screen (VISTA)on 10-01-2024 AMPHETAMINES Negative Normal <1000 ng/mL [facility] Comment on above: Order Comment: UNK Performed By: #### L 100.0100, L500.2500 #### [facility] [address] [place] [address] BARBITIURATES Negative Normal < 200 ng/mL [facility] Comment on above: Order Comment: UNK Performed By: #### L 100.0100, L500.2500 #### [facility] [address] [place] [address] BENZODIAZIPINE Negative Normal < 200 ng/mL [facility] Comment on above: Order Comment: UNK Performed By: #### L 100.0100, L500.2500 #### [facility] [address] [place] [address] BUP Ur Drug Scr Negative Normal < 200 ng/mL [facility] Comment on above: Order Comment: UNK Performed By: #### L 100.0100, L500.2500 #### [facility] [address] [place] [address] COCAINE Negative Normal < 300 ng/mL [facility] Comment on above: Order Comment: UNK Performed By: #### L 100.0100, L500.2500 #### [facility] [address] [place], [address] Fentanyl Negative Normal [facility] Comment on above: Order Comment: UNK Performed By: #### L 100.0100, L500.2500 #### [facility] [address] [place], [address] METHADONE Negative Normal < 300 ng/mL [facility] Comment on above: Order Comment: UNK Performed By: #### L 100.0100, L500.2500 #### [facility] [address] [place], [address] OPIATES Positive Normal < 300 ng/mL [facility] Comment on above: Order Comment: UNK Result Comment: If c onfirmation testing is needed, a separate order will be required to send out testing to the reference laboratory. Performed By: #### L 100.0100, L500.2500 #### [facility] [place], [address] OXYCODONE Negative Normal < 100 ng/mL [facility] Comment on above: Order Comment: UNK Performed By: #### L 100.0100, L500.2500 #### [facility] [address] [place], [address] PCP Negative Normal < 25 ng/mL [facility] Comment on above: Order Comment: UNK Performed By: #### L 100.0100, L500.2500 #### [facility] [address] [place], [address] THC Negative Normal < 50 ng/mL [facility] Comment on above: Order Comment: UNK Performed By: #### L 100.0100, L500.2500 #### [facility] [address] [place], [address] Urine benzodiazepine levelOr dered By: Lorelei Rust on 10-01-2024 Benzodiazepines Ql (U) Negative < 200 ng/mL [facility] Urine cocaine levelOrdered B y: Lorelei Rust on 10-01-2024 Cocaine Ql (U) Negative < 300 ng/mL [facility] Urine sfalh-4-fohgyjxysdsxhz abinol (THC) measurementOrdered By: Lorelei Rust on 10-01-2024 Cannabinoids Screen Ql (U) Negative < 50 ng/mL [facility] Urine phencyclidine (PCP) de tectionOrdered By: Lorelei Whitei on 10-01-2024 Phencyclidine Ql (U) Negative < 25 ng/mL [facility] Orthopedic Visit Reporton Orthopedic Visit Report [facility] [address] [place] [id number] OFFICE VISIT Date of Service: 09/26/24 MR#: [id number] Acct: [id number] Name: BRYCE ANN Rep #: [id number] : 1940 Provider: Dr. Rui wisdom MD Age/Sex: 83/M Location[place] [facility] Status: Signed Intake Vital Signs 08/26/24 15:01 09/26/24 14:32 Height 5 ft 1 in 5 ft 1 in Weight: 138 lb BMI 26.0 Intake Visit Reasons: RIGHT SHOULDER Chief Complaint: Right shoulder pain Accompanied by: Self Is patient in pain?: Yes Pain scale (1-10): 10 Allergies No Known Allergies Allergy (Verified 09/26/24 14:37) Medications ???Medication ???Instructions ???Recorded ???Confirmed ???Type tamsulosin 0.4 mg capsule 0.4 mg PO DAILY@1800 Retention 09/26/24 History finasteride 1 mg tablet 5 mg PO DAILY prostate 12/30/20 History golimumab 12.5 mg/mL intravenous 12.5 mg IV .H2CRTVG injection 08/1809/26/24 History solution (Simponi ARIA) gabapentin 300 mg capsule 300 mg PO TID PRN PRN NERVE PAIN 0 10/20/22 09/26/24 History trazodone 100 mg tablet 100 mg PO QHS Check with primary 0 11/14/22 09/26/24 History doctor acetaminophen 500 mg tablet 1,000 mg (2 x 500 mg) PO Q8 #0 tab s 01/24/23 09/26/24 Rx denosumab 60 mg/mL subcutaneous 60 mg subcut [id number] #1 mL 09/26/24 Rx syringe (Prolia) methotrexate sodium 2.5 mg tablet 20 mg PO QWEEK 06/01/23 09/26/24 History sulfasalazine 500 mg 0.5 g PO Q12H 06/01/23 09/26/24 Hi story tablet,delayed release tramadol 50 mg tablet 50 mg PO Q8H PRN pain 06/01/2306/22 History mirtazapine 15 mg tablet 15 mg PO QHS 06/22/23 09/26/24 His tory atorvastatin 40 mg tablet (Lipitor) 40 mg PO QHS Cholesterol #90 ta bs 12/04/23 09/26/24 Rx hydrocodone-acetaminophen 5-325mg 1 tab PO TID 12/14/23 09/26/24 Hi story 5mg-325mg amiodarone 200 mg tablet 200 mg PO DAILY heart rate #90 tab s 12/22/23 09/26/24 Rx spironolactone 25 mg tablet 25 mg PO DAILY water pill #90 tabs 01/12/24 09/26/24 Rx furosemide 20 mg tablet 20 mg PO DAILY 30 days #30 tabs 09/26/24 Rx rivaroxaban 15 mg tablet (Xarelto) 15 mg PO DINNER 90 days #90 tabs 09/25/24 09/26/24 Rx Have you fallen in the past year?: No PFSH Medical History Right rotator cuff tear arthropathy Right shoulder pain intermediate (current) use of anticoagulants Secondary adrenal insufficiency Vitamin D deficiency Chronic edema Wears glasses Former smoker History of stress test History of heart attack Anemia Coronary artery disease Atherosclerotic heart disease of [place] coronary artery without angina pectoris BPH (benign prostatic hyperplasia) GERD (gastroesophageal reflux disease) Lumbar spinal stenosis Atrial fibrillation PAT (paroxysmal atrial tachycardia) SVT (supraventricular tachycardia) Rheumatoid arthritis Surgical History History of cardiac catheterization History of coronary artery stent placement Hx of colectomy Hx of transurethral resection of prostate Hx of laminectomy History of lumbar surgery History of coronary artery stent placement (08/06/20) H/O colonoscopy S/P left colectomy S/P appendectomy S/P hemorrhoidectomy S/P vasectomy S/P laparoscopic cholecystectomy H/O umbilical hernia repair S/P inguinal hernia repair S/P rotator cuff repair S/P cataract surgery Family History Father CVA (cerebral vascular accident) Brother CAD (coronary artery disease) CABG X 3 Mother CVA (cerebral vascular accident) Grandfather Cancer prostate Social History household members: none housing: house current occupational status: retired Smoking Status: Former smoker how long ago did patient quit smokin years ago alcohol intake: never substance use type: does not use diet: low salt caffeine: Yes Type: coffee Number of servings: 4 HPI RIGHT SHOULDER Details: This documentation accurately reflects the service provided and the decisions made by me, Dr. Rui Robbins MD 09/26/24 1313. Part of today???s visit was documented by [ ], acting as scribe. BRYCE ANN is a 83 year old M here today for R shoulder pain. multiple years. LHD. getting worse. 2009 Right cuff repair. Left side ok. drives a standard. lives - alone. does groceries. uses cane in right hand. has RA. sees Dr. Plasencia. Supplemental Info [facility] Imaging Services [address] [place], [place] [id number] Shoulder min 2 Views MR#: [id number] (more content not included)... Normal [facility] Absolute lymphocyte countOrd ered By: Dayana Plasencia on 09-16-2024 Lymphocytes Auto (Unsp spec) [#/Vol] 1.69 10*3/uL 0.83-4.51 [facility] Absolute neutrophil countOrd ered By: Dayana Plasencia on 09-16-2024 Neutrophils (Bld) [#/Vol] 2.0 10*3/uL 2.0-7.7 [facility] Anion gap in Serum or Plasma Ordered By: Dayana Plasencia on 09-16-2024 Anion gap [Moles/Vol] 8 mmol/L 5-15 [facility] Automated lymphocyte count a s percentage of total leukocytesOrdered By: Dayana Plasencia on 09-16-2024 Lymphocytes/100 WBC Auto (Unsp spec) 36.0 % 19- [facility] BUN/creatinine ratioOrdered By: Dayanajaime Plasencia on 09-16-2024 Urea nitrogen/Creatinine [Mass ratio] 17.4 mg/mg 10- [facility] Basophil percentageOrdered B y: Dayana Plasencia on 09-16-2024 Basophils/100 WBC (Bld) 0.4 % 0-1 [facility] Bilirubin, totalOrdered By: Dayanajaime Plasencia on 09-16-2024 Bilirubin [Mass/Vol] 0.33 mg/dL 0.00-1.30 [facility] CBC W/Diff, Automatedon 08-28 Absolute Lymph 1.69 X10 3/uL Normal 0.83-4.51 [facility] Comment on above: Performed By: #### L 100.0100, L500.2500 #### [facility] [address] [place], [address] Absolute Neut 2.0 X10 3/uL Normal 2.0-7.7 [facility] Comment on above: Performed By: #### L 100.0100, L500.2500 #### [facility] [address] [place], [address] Basophils/100 WBC (Bld) 0.4 % Normal 0-1 [facility] Comment on above: Performed By: #### L 100.0100, L500.2500 #### [facility] [address] [place], [address] Eosinophils/100 WBC (Bld) 7.0 % High 0-5 [facility] Comment on above: Performed By: #### L 100.0100, L500.2500 #### [facility] [address] [place], [address] Erythrocyte distribution width (RBC) [Ratio] 15.0 % High 11.6-14.6 [facility] Comment on above: Performed By: #### L 100.0100, L500.2500 #### [facility] [address] [place], [address] Hematocrit (Bld) [Volume fraction] 32.1 % Low 40-54 [facility] Comment on above: Performed By: #### L 100.0100, L500.2500 #### [facility] [address] [place], [address] Hemoglobin (Bld) [Mass/Vol] 10.7 g/dL Low 13.0-16.5 [facility] Comment on above: Performed By: #### L 100.0100, L500.2500 #### [facility] [address] [place], [address] IG% 0.200 Normal 0.0-0.9 [facility] Comment on above: Result Comment: IG% - Immature Granulocytes (promyelocytes, myelocytes and metamyelocytes) > 1% indicates that a LEFT SHIFT is Present. Performed By: #### L 100.0100, L500.2500 #### [facility] [address] [place], [address] Lymphocytes/100 WBC (Bld) 36.0 % Normal 19-41 [facility] Comment on above: Performed By: #### L 100.0100, L500.2500 #### [facility] [address] [place], [address] MCH (RBC) [Entitic mass] 32.4 pg High 27.0-32.0 [facility] Comment on above: Performed By: #### L 100.0100, L500.2500 #### [facility] [address] [place], [address] MCHC (RBC) [Mass/Vol] 33.3 g/dL Normal 32-36 [facility] Comment on above: Performed By: #### L 100.0100, L500.2500 #### [facility] [address] [place], [address] MCV (RBC) [Entitic vol] 97.3 fL High 80-94 [facility] Comment on above: Performed By: #### L 100.0100, L500.2500 #### [facility] [address] [place], [address] Monocytes/100 WBC (Bld) 13.6 % High 0-10 [facility] Comment on above: Performed By: #### L 100.0100, L500.2500 #### [facility] [address] [place], [address] Neutrophils/100 WBC (Bld) 42.8 % Low 47-70 [facility] Comment on above: Performed By: #### L 100.0100, L500.2500 #### [facility] [address] [place], [address] Nucleated RBC (Bld) [#/Vol] 0 10*3/uL Normal 0-5 [facility] Comment on above: Performed By: #### L 100.0100, L500.2500 #### [facility] [address] [place], [address] Platelet mean volume (Bld) [Entitic vol] 9.7 fL Normal 6.2-12.0 [facility] Comment on above: Performed By: #### L 100.0100, L500.2500 #### [facility] [address] [place], [address] Platelets (Bld) [#/Vol] 165 10*3/uL Normal 150-450 [facility] Comment on above: Performed By: #### L 100.0100, L500.2500 #### [facility] [address] [place], [address] RBC (Bld) [#/Vol] 3.30 10*6/uL Low 4.6-6.2 [facility] Comment on above: Performed By: #### L 100.0100, L500.2500 #### [facility] [address] [place], [address] RDW SD 53.2 fl High 35.1-43.9 [facility] Comment on above: Performed By: #### L 100.0100, L500.2500 #### [facility] [address] [place], [address] WBC (Bld) [#/Vol] 4.7 10*3/uL Normal 4.4-11.0 [facility] Comment on above: Performed By: #### L 100.0100, L500.2500 #### [facility] [address] [place], [address] Carbon dioxide, total [Moles /volume] in Central venous bloodOrdered By: Dayana Plasencia on 09-16-2024 CO2 [Moles/Vol] 27.7 mmol/L 21.0-32.0 [facility] Chloride assayOrdered By: Shoshana Plasencia on 09-16-2024 Chloride [Moles/Vol] 96 mmol/L Low 98-108 [facility] Comprehensive Metabolic Prof ilon 09-16-2024 Albumin [Mass/Vol] 3.8 g/dL Normal 3.4-4.8 [facility] Comment on above: Performed By: #### L 100.0100, L500.2500 #### [facility] [address] [place], [address] Albumin/Globulin [Mass ratio] 1.5 {ratio} Normal 0.9-2.4 [facility] Comment on above: Performed By: #### L 100.0100, L500.2500 #### [facility] [address] [place], [address] ALK PHOS 67 U/L Normal 40-129 [facility] Comment on above: Performed By: #### L 100.0100, L500.2500 #### [facility] [address] [place], [address] ALT [Catalytic activity/Vol] 23 U/L Normal <=46 [facility] Comment on above: Performed By: #### L 100.0100, L500.2500 #### [facility] [address] [place], [address] AST [Catalytic activity/Vol] 32 U/L Normal <=37 [facility] Comment on above: Performed By: #### L 100.0100, L500.2500 #### [facility] [address] [place], [address] Bilirubin [Mass/Vol] 0.33 mg/dL Normal 0.00-1.30 [facility] Comment on above: Performed By: #### L 100.0100, L500.2500 #### [facility] [address] [place], [address] BUN/CRE 17.4 RATIO Normal 10-20 [facility] Comment on above: Performed By: #### L 100.0100, L500.2500 #### [facility] [address] [place], [address] Calcium [Mass/Vol] 8.6 mg/dL Normal 7.6-11.0 [facility] Comment on above: Performed By: #### L 100.0100, L500.2500 #### [facility] [address] [place], [address] Chloride [Moles/Vol] 96 mmol/L Low 98-108 [facility] Comment on above: Performed By: #### L 100.0100, L500.2500 #### [facility] [address] [place], [address] CO2 [Moles/Vol] 27.7 mmol/L Normal 21.0-32.0 [facility] Comment on above: Performed By: #### L 100.0100, L500.2500 #### [facility] [address] [place], [address] Creatinine [Mass/Vol] 1.02 mg/dL Normal 0.70-1.20 [facility] Comment on above: Performed By: #### L 100.0100, L500.2500 #### [facility] [address] [place], [address] GAP 8 Normal 5-15 [facility] Comment on above: Performed By: #### L 100.0100, L500.2500 #### [facility] [address] [place], [address] GFR/1.73 sq M.predicted among non-blacks MDRD (S/P/Bld) [Vol rate/Area] 74 mL/min/{1.73_m2} Normal >60 [facility] Comment on above: Result Comment: mL/m in/1.73m2 CKD-EPI Creatinine Equation (2020) Performed By: #### L 100.0100, L500.2500 #### [facility] [address] [place], [address] Globulin (S) [Mass/Vol] 2.4 g/dL Normal 2.2-4.2 [facility] Comment on above: Performed By: #### L 100.0100, L500.2500 #### [facility] [address] [place], [address] Glucose [Mass/Vol] 104 mg/dL High 70-99 [facility] Comment on above: Performed By: #### L 100.0100, L500.2500 #### [facility] [address] [place], [address] Potassium [Moles/Vol] 4.2 mmol/L Normal 3.3-5.1 [facility] Comment on above: Performed By: #### L 100.0100, L500.2500 #### [facility] [address] [place], [address] Sodium [Moles/Vol] 132 mmol/L Low 133-145 [facility] Comment on above: Performed By: #### L 100.0100, L500.2500 #### [facility] [address] [place], [address] T PROT 6.2 g/dL Normal 5.9-8.4 [facility] Comment on above: Performed By: #### L 100.0100, L500.2500 #### [facility] [address] [place], [address] Urea nitrogen [Mass/Vol] 18 mg/dL Normal 4-19 [facility] Comment on above: Performed By: #### L 100.0100, L500.2500 #### [facility] [address] [place], [address] Eosinophil percentageOrdered By: Dayana Plasencia on 09-16-2024 Eosinophils/100 WBC (Bld) 7.0 % High 0-5 [facility] Erythrocyte distribution wid th ratioOrdered By: Dayana Plasencia on 09-16-2024 Erythrocyte distribution width (RBC) [Ratio] 15.0 % High 11.6-14.6 [facility] Erythrocyte distribution wid th standard deviationOrdered By: Dayana Plasencia on 09-16-2024 Erythrocyte distribution width (RBC) [Ratio] 53.2 fl High 35.1-43.9 [facility] Glomerular filtration rate ( GFR) estimation/1.73 sq m using serum, plasma, or whole bOrdered By: Dayana Plasencia on 09-16-2024 GFR/1.73 sq M.predicted among non-blacks MDRD (S/P/Bld) [Vol rate/Area] 74 mL/min/{1.73_m2} >60 [facility] Comment on above: mL/min/1.73m2 CKD-EP I Creatinine Equation (2020) Hematocrit Auto (Bld) [Volum e fraction]Ordered By: Dayana Plasencia on 09-16-2024 Hematocrit (Bld) [Volume fraction] 32.1 % Low 40-54 [facility] Hemoglobin measurementOrdere d By: Dayana Plasencia on 09-16-2024 Hemoglobin (Bld) [Mass/Vol] 10.7 g/dL Low 13.0-16.5 [facility] Immature granulocytes/100 WB C Auto (Bld)Ordered By: Dayana Plasencia on 09-16-2024 Immature granulocytes/100 WBC (Bld) 0.200 % 0.0-0.9 [facility] Comment on above: IG% - Immature Granu locytes (promyelocytes, myelocytes and metamyelocytes) > 1% indicates that a LEFT SHIFT is Present. Laboratory - Chemistry and C hemistry - challengeOrdered By: Dayana Plasencia on 09-16-2024 AST [Catalytic activity/Vol] 32 U/L <38 [facility] MCV (mean corpuscular volume ) determinationOrdered By: Dayana Plasencia on 09-16-2024 MCV (RBC) [Entitic vol] 97.3 fL High 80-94 [facility] Mean corpuscular hemoglobin (MCH) determinationOrdered By: Dayana Plasencia on 09-16-2024 MCH (RBC) [Entitic mass] 32.4 pg High 27.0-32.0 [facility] Mean corpuscular hemoglobin concentration (MCHC) determinationOrdered By: Dayana Plasencia on 09-16-2024 MCHC (RBC) [Mass/Vol] 33.3 g/dL 32-36 [facility] Mean platelet volume determi nationOrdered By: Dayana Plasencia on 09-16-2024 Platelet mean volume (Bld) [Entitic vol] 9.7 fL 6.2-12.0 [facility] Monocyte percentageOrdered B y: Dayana Plasencia on 09-16-2024 Monocytes/100 WBC (Bld) 13.6 % High 0-10 [facility] Neutrophil percentageOrdered By: Dayana Plasencia on 09-16-2024 Neutrophils/100 WBC (Bld) 42.8 % Low 47-70 [facility] No Panel InformationOrdered By: Dayana Plasencia on 09-16-2024 32 U/L <38 [facility] Nucleated red blood cell per centageOrdered By: Dayana Plasencia on 09-16-2024 Nucleated RBC/100 WBC (Bld) [Ratio] 0 % 0-5 [facility] Platelet countOrdered By: Shoshana Plasencia on 09-16-2024 Platelets (Bld) [#/Vol] 165 10*3/uL 150-450 [facility] Potassium measurement (mass/ volume)Ordered By: Dayana Plasencia on 09-16-2024 Potassium (Unsp spec) [Mass/Vol] 4.2 mmol/L 3.3-5.1 [facility] RBC Auto (Bld) [#/Vol]Ordere d By: Dayana Plasencia on 09-16-2024 RBC (Bld) [#/Vol] 3.30 10*6/uL Low 4.6-6.2 [facility] Serum creatinine measurement (mass/volume)Ordered By: Dayana Plasencia on 09-16-2024 Creatinine [Mass/Vol] 1.02 mg/dL 0.70-1.20 [facility] Serum globulin measurementOr dered By: Dayana Plasencia on 09-16-2024 Globulin (S) [Mass/Vol] 2.4 g/dL 2.2-4.2 [facility] Serum glucose measurement (m ass/volume)Ordered By: Dayana Plasencia on 09-16-2024 Glucose [Mass/Vol] 104 mg/dL High 70-99 [facility] Serum or plasma alanine alamo otransferase (ALT) measurementOrdered By: Dayana Plasencia on 09-16-2024 ALT [Catalytic activity/Vol] 23 U/L <47 [facility] Serum or plasma albumin lenka urement (mass/volume)Ordered By: Dayana Plasencia on 09-16-2024 Albumin [Mass/Vol] 3.8 g/dL 3.4-4.8 [facility] Serum or plasma albumin/glob ulin mass ratioOrdered By: Dayana Plasencia on 09-16-2024 Albumin/Globulin [Mass ratio] 1.5 {ratio} 0.9-2.4 [facility] Serum or plasma alkaline yazan sphatase measurementOrdered By: Dayana Plasencia on 09-16-2024 ALP [Catalytic activity/Vol] 67 U/L 40-129 [facility] Serum or plasma calcium lenka urement (mass/volume)Ordered By: Dayana Plasencia on 09-16-2024 Calcium [Mass/Vol] 8.6 mg/dL 7.6-11.0 [facility] Serum or plasma urea nitroge n measurement (mass/volume)Ordered By: Dayana Plasencia on 09-16-2024 Urea nitrogen [Mass/Vol] 18 mg/dL 4-19 [facility] Sodium levelOrdered By: Ramiro Plasencia on 09-16-2024 Sodium [Moles/Vol] 132 mmol/L Low 133-145 [facility] Total proteinOrdered By: Ari Plasencia on 09-16-2024 Protein [Mass/Vol] 6.2 g/dL 5.9-8.4 [facility] White blood cell (WBC) count Ordered By: Dayana Plasencia on 09-16-2024 WBC (Bld) [#/Vol] 4.7 10*3/uL 4.4-11.0 [facility] Office Visit Reporton 2024 Office Visit Report [facility] [address] [place] [address] OFFICE VISIT Date of Service: 09/12/24 MR#: [id number] Acct: [id number] Patient: MARISSABRYCE OCAMPO Cecile Rep #: [id number] : 1940 Provider: Avery Carter Age/Sex: 83/M Location: [facility] Status: Signed Intake Vital Signs 08/19/24 11:30 Height 5 ft 1 in Intake Visit 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 aria Allergies No Known Allergies Allergy (Verified 08/26/24 15:04) Have you fallen in the past year?: No Office Procedures Injections Procedure performed by: Ty Alan Lot number: [id number] Operational Test Mechanic: Kaznachey date: 11/25/26 Dose of injection: 1 mL Site of injection: Sub-Q Medication Given: Yes Is this a patient provided medication?: No Office Meds Prolia 60 mg/mL subcutaneous syringe Performing Provider: Jasbir Perez MD Performing Location: [facility] Administered by: Ty Alan RN on 09/12/24 15:38 Dose Route Admin Location Dispensed Lot Number Expiration Date DOTTIE Hess ufacturer 60 mg subcut Left Arm 1 mL [id number] 11/25/26 74642-105-13 [facility] Assessment and Plan Assessment and Plan (1) Osteoporosis: Status: Chronic Qualifiers: Osteoporosis type: unspecified Presence of current pathological fracture: with current pathological fracture Encounter type: subsequent encounter Fracture healing: with routine healing Qualified Code(s): M80.00XD - Age-related osteoporosis with current pathological fracture, unspecified site, subsequent encounter for fracture with routine healing Orders: Orders Prolia Injection 09/12/24 M81.0 - Age-related osteoporosis without current pathological fracture Clinical Quality Measures Falls Risk Screening/Assistive Devices Have you fallen in the past year?: No 09/13/24 1312 Date Jasbir Perez MD [facility] Signature: Date (if applicable) CC: Normal [facility] Albumin to globulin ratioOrd ered By: Dayana Plasencia on 07-15-2024 Albumin/Globulin [Mass ratio] 1.1 {ratio} 0.9-2.4 [facility] Bilirubin, totalOrdered By: Dayana Plasencia on 07-15-2024 Bilirubin [Mass/Vol] 0.50 mg/dL 0.20-1.00 [facility] Comment on above: For patients on eltr ombopag therapy, use of Dimension [place] TBIL is not recommended. Blood urea nitrogen (BUN)/cr eatinine ratioOrdered By: Dayana Plasencia on 07-15-2024 Urea nitrogen/Creatinine [Mass ratio] 14.8 mg/mg 10-20 [facility] Carbon dioxide measurementOr dered By: Dayana Plasencia on 07-15-2024 CO2 [Moles/Vol] 29.0 mmol/L 21.0-32.0 [facility] Chloride measurementOrdered By: Dayana Plasencia on 07-15-2024 Chloride [Moles/Vol] 103 mmol/L 98-107 [facility] Comprehensive Metabolic Prof ilon 07-15-2024 Albumin [Mass/Vol] 3.6 g/dL Normal 3.2-5.0 [facility] Comment on above: Performed By: #### L 100.0100, L500.2500 #### [facility] [address] [place], [address] Albumin/Globulin [Mass ratio] 1.1 {ratio} Normal 0.9-2.4 [facility] Comment on above: Performed By: #### L 100.0100, L500.2500 #### [facility] [address] [place], [address] ALK P 74 U/L Normal 45-117 [facility] Comment on above: Performed By: #### L 100.0100, L500.2500 #### [facility] [address] [place], [address] ALT [Catalytic activity/Vol] 27 U/L Normal 16-61 [facility] Comment on above: Performed By: #### L 100.0100, L500.2500 #### [facility] [address] [place], [address] AST [Catalytic activity/Vol] 32 U/L Normal 15-37 [facility] Comment on above: Performed By: #### L 100.0100, L500.2500 #### [facility] [address] [place], [address] Bilirubin [Mass/Vol] 0.50 mg/dL Normal 0.20-1.00 [facility] Comment on above: Result Comment: For patients on eltrombopag therapy, use of Dimension [place] TBIL is not recommended. Performed By: #### L 100.0100, L500.2500 #### [facility] [address] [place], [address] BUN/CRE 14.8 RATIO Normal 10-20 [facility] Comment on above: Performed By: #### L 100.0100, L500.2500 #### [facility] [address] [place], [address] CA,Total 8.8 mg/dL Normal 8.5-10.1 [facility] Comment on above: Performed By: #### L 100.0100, L500.2500 #### [facility] [address] [place], [address] Chloride [Moles/Vol] 103 mmol/L Normal 98-107 [facility] Comment on above: Performed By: #### L 100.0100, L500.2500 #### [facility] [address] [place], [address] CO2 [Moles/Vol] 29.0 mmol/L Normal 21.0-32.0 [facility] Comment on above: Performed By: #### L 100.0100, L500.2500 #### [facility] [address] [place], [address] Creatinine [Mass/Vol] 0.95 mg/dL Normal 0.70-1.30 [facility] Comment on above: Result Comment: The validity of the calculated GFR GFRAA in patients over 70 years has not been determined. Clinical correlation is essential. Performed By: #### L 100.0100, L500.2500 #### [facility] [address] [place], [address] EST GFR - AA 98 mL/min Normal >60 [facility] Comment on above: Result Comment: Afri can Citizen [place] GFR Calc Performed By: #### L 100.0100, L500.2500 #### [facility] [address] [place], [address] GAP 6 Normal 5-15 [facility] Comment on above: Performed By: #### L 100.0100, L500.2500 #### [facility] [address] [place], [address] GFR/1.73 sq M.predicted among non-blacks MDRD (S/P/Bld) [Vol rate/Area] 81 mL/min/{1.73_m2} Normal >60 [facility] Comment on above: Result Comment: Non- GFR Calc Performed By: #### L 100.0100, L500.2500 #### [facility] [address] [place], [address] Globulin (S) [Mass/Vol] 3.3 g/dL Normal 2.2-4.2 [facility] Comment on above: Performed By: #### L 100.0100, L500.2500 #### [facility] [address] [place], [address] Glucose [Mass/Vol] 135 mg/dL High 74-106 [facility] Comment on above: Result Comment: Fast ing Glucose result greater than or equal to 126 mg/dL suggests DIABETES MELLITUS per A.D.A. criteria. Performed By: #### L 100.0100, L500.2500 #### [facility] [address] [place], [address] Potassium [Moles/Vol] 4.0 mmol/L Normal 3.5-5.1 [facility] Comment on above: Performed By: #### L 100.0100, L500.2500 #### [facility] [address] [place], [address] Sodium [Moles/Vol] 137 mmol/L Normal 136-145 [facility] Comment on above: Performed By: #### L 100.0100, L500.2500 #### [facility] [address] [place], [address] T PROT 6.9 g/dL Normal 6.4-8.2 [facility] Comment on above: Performed By: #### L 100.0100, L500.2500 #### [facility] [address] [place], [address] Urea nitrogen [Mass/Vol] 14 mg/dL Normal 7-18 [facility] Comment on above: Performed By: #### L 100.0100, L500.2500 #### [facility] [address] [place], [address] Estimated glomerular filtrat ion rate (GFR) AmericanOrdered By: Dayana Plasencia on 07-15-2024 Estimated GFR (MDRD) Amer 98 mL/min >60 [facility] Comment on above: GFR Calc Glomerular filtration rate ( GFR) estimationOrdered By: Dayana Plasencia on 07-15-2024 Estimated GFR (MDRD) Non-Af Amer 81 mL/min >60 [facility] Comment on above: Non- GFR Calc GFR/1.73 sq M.predicted among non-blacks MDRD (S/P/Bld) [Vol rate/Area] 81 mL/min/{1.73_m2} >60 [facility] Comment on above: Non- GFR Calc Glucose measurementOrdered B y: Dayana Plasencia on 07-15-2024 Glucose [Mass/Vol] 135 mg/dL High 74-106 [facility] Comment on above: Fasting Glucose resu lt greater than or equal to 126 mg/dL suggests DIABETES MELLITUS per A.D.A. criteria. Laboratory - Chemistry and C hemistry - challengeOrdered By: Dayana Plasencia on 07-15-2024 AST [Catalytic activity/Vol] 32 U/L 15-37 [facility] Potassium measurementOrdered By: Dayana Plasencia on 07-15-2024 Potassium [Moles/Vol] 4.0 mmol/L 3.5-5.1 [facility] Serum anion gap measurementO rdered By: Dayana Plasencia on 07-15-2024 Anion gap [Moles/Vol] 6 mmol/L 5-15 [facility] Serum globulin measurementOr dered By: Dayana Plasencia on 07-15-2024 Globulin (S) [Mass/Vol] 3.3 g/dL 2.2-4.2 [facility] Serum or plasma alanine alamo otransferase (ALT) measurementOrdered By: Dayana Plasencia on 07-15-2024 ALT [Catalytic activity/Vol] 27 U/L 16-61 [facility] Serum or plasma albumin lenka urement (mass/volume)Ordered By: Dayana Plasencia on 07-15-2024 Albumin [Mass/Vol] 3.6 g/dL 3.2-5.0 [facility] Serum or plasma alkaline yazan sphatase measurementOrdered By: Dayana Plasencia on 07-15-2024 ALP [Catalytic activity/Vol] 74 U/L 45-117 [facility] Serum or plasma calcium lenka urement (mass/volume)Ordered By: Dayana Plasencia on 07-15-2024 Calcium [Mass/Vol] 8.8 mg/dL 8.5-10.1 [facility] Serum or plasma creatinine m easurement (mass/volume)Ordered By: Dayana Plasencia on 07-15-2024 Creatinine [Mass/Vol] 0.95 mg/dL 0.70-1.30 [facility] Comment on above: The validity of the calculated GFR & GFRAA in patients over 70 years has not been determined. Clinical correlation is essential. Serum or plasma urea nitroge n measurement (mass/volume)Ordered By: Dayana Plasencia on 07-15-2024 Urea nitrogen [Mass/Vol] 14 mg/dL 7-18 [facility] Sodium levelOrdered By: Ramiro Plasencia on 07-15-2024 Sodium [Moles/Vol] 137 mmol/L 136-145 [facility] Total proteinOrdered By: Ari Plasencia on 07-15-2024 Protein [Mass/Vol] 6.9 g/dL 6.4-8.2 [facility] Absolute lymphocyte countOrd ered By: Dayana Plasencia on 06-24-2024 Lymphocytes Auto (Unsp spec) [#/Vol] 1.32 10*3/uL 0.83-4.51 [facility] Absolute neutrophil countOrd ered By: Dayana Plasencia on 06-24-2024 Neutrophils (Bld) [#/Vol] 3.9 10*3/uL 2.0-7.7 [facility] Albumin to globulin ratioOrd ered By: Dayana Plasencia on 06-24-2024 Albumin/Globulin [Mass ratio] 1.1 {ratio} 0.9-2.4 [facility] Automated lymphocyte count a s percentage of total leukocytesOrdered By: Dayana Plasencia on 06-24-2024 Lymphocytes/100 WBC Auto (Unsp spec) 20.7 % 19-41 [facility] Basophil percentageOrdered B y: Dayana Plasencia on 06-24-2024 Basophils/100 WBC (Bld) 0.8 % 0-1 [facility] Bilirubin, totalOrdered By: Dayana Plasencia on 06-24-2024 Bilirubin [Mass/Vol] 0.60 mg/dL 0.20-1.00 [facility] Comment on above: For patients on eltr ombopag therapy, use of Dimension [place] TBIL is not recommended. Blood urea nitrogen (BUN)/cr eatinine ratioOrdered By: Dayana Plasencia on 06-24-2024 Urea nitrogen/Creatinine [Mass ratio] 16.2 mg/mg 10-20 [facility] CBC W/Diff, Automatedon 05-30 Absolute Lymph 1.32 X10 3/uL Normal 0.83-4.51 [facility] Comment on above: Performed By: #### L 100.0100, L500.2500 #### [facility] [address] [place], [address] Absolute Neut 3.9 X10 3/uL Normal 2.0-7.7 [facility] Comment on above: Performed By: #### L 100.0100, L500.2500 #### [facility] [address] [place], [address] Basophils/100 WBC (Bld) 0.8 % Normal 0-1 [facility] Comment on above: Performed By: #### L 100.0100, L500.2500 #### [facility] [address] [place], [address] Eosinophils/100 WBC (Bld) 5.0 % Normal 0-5 [facility] Comment on above: Performed By: #### L 100.0100, L500.2500 #### [facility] [address] [place], [address] Erythrocyte distribution width (RBC) [Ratio] 15.9 % High 11.6-14.6 [facility] Comment on above: Performed By: #### L 100.0100, L500.2500 #### [facility] [address] [place], [address] Hematocrit (Bld) [Volume fraction] 36.2 % Low 40-54 [facility] Comment on above: Performed By: #### L 100.0100, L500.2500 #### [facility] [address] [place], [address] Hemoglobin (Bld) [Mass/Vol] 12.1 g/dL Low 13.0-16.5 [facility] Comment on above: Performed By: #### L 100.0100, L500.2500 #### [facility] [address] [place], [address] IG% 0.200 Normal 0.0-0.9 [facility] Comment on above: Result Comment: IG% - Immature Granulocytes (promyelocytes, myelocytes and metamyelocytes) > 1% indicates that a LEFT SHIFT is Present. Performed By: #### L 100.0100, L500.2500 #### [facility] [address] [place], [address] Lymphocytes/100 WBC (Bld) 20.7 % Normal 19-41 [facility] Comment on above: Performed By: #### L 100.0100, L500.2500 #### [facility] [address] [place], [address] MCH (RBC) [Entitic mass] 33.8 pg High 27.0-32.0 [facility] Comment on above: Performed By: #### L 100.0100, L500.2500 #### [facility] [address] [place], [address] MCHC (RBC) [Mass/Vol] 33.4 g/dL Normal 32-36 [facility] Comment on above: Performed By: #### L 100.0100, L500.2500 #### [facility] [address] [place], [address] MCV (RBC) [Entitic vol] 101.1 fL High 80-94 [facility] Comment on above: Performed By: #### L 100.0100, L500.2500 #### [facility] [address] [place], [address] Monocytes/100 WBC (Bld) 12.7 % High 0-10 [facility] Comment on above: Performed By: #### L 100.0100, L500.2500 #### [facility] [address] [place], [address] Neutrophils/100 WBC (Bld) 60.6 % Normal 47-70 [facility] Comment on above: Performed By: #### L 100.0100, L500.2500 #### [facility] [address] [place], [address] Nucleated RBC (Bld) [#/Vol] 0 10*3/uL Normal 0-5 [facility] Comment on above: Performed By: #### L 100.0100, L500.2500 #### [facility] [address] [place], [address] Platelet mean volume (Bld) [Entitic vol] 9.6 fL Normal 6.2-12.0 [facility] Comment on above: Performed By: #### L 100.0100, L500.2500 #### [facility] [address] [place], [address] Platelets (Bld) [#/Vol] 201 10*3/uL Normal 150-450 [facility] Comment on above: Performed By: #### L 100.0100, L500.2500 #### [facility] [address] [place], [address] RBC (Bld) [#/Vol] 3.58 10*6/uL Low 4.6-6.2 [facility] Comment on above: Performed By: #### L 100.0100, L500.2500 #### [facility] [address] [place], [address] RDW SD 58.9 fl High 35.1-43.9 [facility] Comment on above: Performed By: #### L 100.0100, L500.2500 #### [facility] [address] [place], [address] WBC (Bld) [#/Vol] 6.4 10*3/uL Normal 4.4-11.0 [facility] Comment on above: Performed By: #### L 100.0100, L500.2500 #### [facility] [address] [place], [address] Carbon dioxide measurementOr dered By: Dayana Plasencia on 06-24-2024 CO2 [Moles/Vol] 30.0 mmol/L 21.0-32.0 [facility] Chloride measurementOrdered By: Dayana Plasencia on 06-24-2024 Chloride [Moles/Vol] 98 mmol/L 98-107 [facility] Comprehensive Metabolic Prof ilon 06-24-2024 Albumin [Mass/Vol] 3.7 g/dL Normal 3.2-5.0 [facility] Comment on above: Performed By: #### L 100.0100, L500.2500 #### [facility] [address] [place], [address] Albumin/Globulin [Mass ratio] 1.1 {ratio} Normal 0.9-2.4 [facility] Comment on above: Performed By: #### L 100.0100, L500.2500 #### [facility] [address] [place], [address] ALK P 80 U/L Normal 45-117 [facility] Comment on above: Performed By: #### L 100.0100, L500.2500 #### [facility] [address] [place], [address] ALT [Catalytic activity/Vol] 25 U/L Normal 16-61 [facility] Comment on above: Performed By: #### L 100.0100, L500.2500 #### [facility] [address] [place], [address] AST [Catalytic activity/Vol] 27 U/L Normal 15-37 [facility] Comment on above: Performed By: #### L 100.0100, L500.2500 #### [facility] [address] [place], [address] Bilirubin [Mass/Vol] 0.60 mg/dL Normal 0.20-1.00 [facility] Comment on above: Result Comment: For patients on eltrombopag therapy, use of Dimension [place] TBIL is not recommended. Performed By: #### L 100.0100, L500.2500 #### [facility] [address] [place], [address] BUN/CRE 16.2 RATIO Normal 10-20 [facility] Comment on above: Performed By: #### L 100.0100, L500.2500 #### [facility] [address] [place], [address] CA,Total 8.7 mg/dL Normal 8.5-10.1 [facility] Comment on above: Performed By: #### L 100.0100, L500.2500 #### [facility] [address] [place], [address] Chloride [Moles/Vol] 98 mmol/L Normal 98-107 [facility] Comment on above: Performed By: #### L 100.0100, L500.2500 #### [facility] [address] [place], [address] CO2 [Moles/Vol] 30.0 mmol/L Normal 21.0-32.0 [facility] Comment on above: Performed By: #### L 100.0100, L500.2500 #### [facility] [address] [place], [address] Creatinine [Mass/Vol] 1.42 mg/dL High 0.70-1.30 [facility] Comment on above: Result Comment: The validity of the calculated GFR GFRAA in patients over 70 years has not been determined. Clinical correlation is essential. Performed By: #### L 100.0100, L500.2500 #### [facility] [address] [place], [address] EST GFR - AA 61 mL/min Normal >60 [facility] Comment on above: Result Comment: Afri can Citizen [place] GFR Calc Performed By: #### L 100.0100, L500.2500 #### [facility] [address] [place], [address] GAP 8 Normal 5-15 [facility] Comment on above: Performed By: #### L 100.0100, L500.2500 #### [facility] [address] [place], [address] GFR/1.73 sq M.predicted among non-blacks MDRD (S/P/Bld) [Vol rate/Area] 51 mL/min/{1.73_m2} Low >60 [facility] Comment on above: Result Comment: Non- GFR Calc Performed By: #### L 100.0100, L500.2500 #### [facility] [address] [place], [address] Globulin (S) [Mass/Vol] 3.5 g/dL Normal 2.2-4.2 [facility] Comment on above: Performed By: #### L 100.0100, L500.2500 #### [facility] [address] [place], [address] Glucose [Mass/Vol] 86 mg/dL Normal 74-106 [facility] [facility] Comment on above: Performed By: #### L 100.0100, L500.2500 #### [facility] [address] [place], [address] Potassium [Moles/Vol] 4.3 mmol/L Normal 3.5-5.1 [facility] Comment on above: Performed By: #### L 100.0100, L500.2500 #### [facility] [address] [place], [address] Sodium [Moles/Vol] 136 mmol/L Normal 136-145 [facility] Comment on above: Performed By: #### L 100.0100, L500.2500 #### [facility] [address] [place], [address] T PROT 7.2 g/dL Normal 6.4-8.2 [facility] Comment on above: Performed By: #### L 100.0100, L500.2500 #### [facility] [address] [place], [address] Urea nitrogen [Mass/Vol] 23 mg/dL High 7-18 [facility] Comment on above: Performed By: #### L 100.0100, L500.2500 #### [facility] [address] [place], [address] Eosinophil percentageOrdered By: Dayana Plasencia on 06-24-2024 Eosinophils/100 WBC (Bld) 5.0 % 0-5 [facility] Erythrocyte distribution wid th ratioOrdered By: Dayana Plasencia on 06-24-2024 Erythrocyte distribution width (RBC) [Ratio] 15.9 % High 11.6-14.6 [facility] Erythrocyte distribution wid th standard deviationOrdered By: Dayana Plasencia on 06-24-2024 Erythrocyte distribution width (RBC) [Entitic vol] 58.9 fL High 35.1-43.9 [facility] Erythrocyte distribution width (RBC) [Ratio] 58.9 fl High 35.1-43.9 [facility] Estimated glomerular filtrat ion rate (GFR) AmericanOrdered By: Dayana Plasencia on 06-24-2024 Estimated GFR (MDRD) Amer 61 mL/min >60 [facility] Comment on above: GFR Calc Glomerular filtration rate ( GFR) estimationOrdered By: Dayana Plasencia on 06-24-2024 Estimated GFR (MDRD) Non-Af Amer 51 mL/min Low >60 [facility] Comment on above: Non- GFR Calc GFR/1.73 sq M.predicted among non-blacks MDRD (S/P/Bld) [Vol rate/Area] 51 mL/min/{1.73_m2} Low >60 [facility] Comment on above: Non- GFR Calc Glucose measurementOrdered B y: Dayana Plasencia on 06-24-2024 Glucose [Mass/Vol] 86 mg/dL 74-106 [facility] Hematocrit Auto (Bld) [Volum e fraction]Ordered By: Dayana Plasencia on 06-24-2024 Hematocrit (Bld) [Volume fraction] 36.2 % Low 40-54 [facility] Hemoglobin measurementOrdere d By: Dayana Plasencia on 06-24-2024 Hemoglobin (Bld) [Mass/Vol] 12.1 g/dL Low 13.0-16.5 [facility] Immature granulocytes/100 WB C Auto (Bld)Ordered By: Dayana Plasencia on 01-27-2025 Immature granulocytes/100 WBC (Bld) 0.200 % 0.0-0.9 [facility] Comment on above: IG% - Immature Granu locytes (promyelocytes, myelocytes and metamyelocytes) > 1% indicates that a LEFT SHIFT is Present. Laboratory - Chemistry and C hemistry - challengeOrdered By: Dayana Plasencia on 06-24-2024 AST [Catalytic activity/Vol] 27 U/L 15-37 [facility] Lymphocytes Auto (Unsp spec) [#/Vol]Ordered By: Dayana Plasencia on 06-24-2024 Lymphocytes (Bld) [#/Vol] 1.32 10*3/uL 0.83-4.51 [facility] Lymphocytes/100 WBC Auto (Un sp spec)Ordered By: Dayana Plasencia on 06-24-2024 Lymphocytes/100 WBC (Bld) 20.7 % 19-41 [facility] MCV (mean corpuscular volume ) determinationOrdered By: Dayana Plasencia on 06-24-2024 MCV (RBC) [Entitic vol] 101.1 fL High 80-94 [facility] Mean corpuscular hemoglobin (MCH) determinationOrdered By: Dayana Plasencia on 06-24-2024 MCH (RBC) [Entitic mass] 33.8 pg High 27.0-32.0 [facility] Mean corpuscular hemoglobin concentration (MCHC) determinationOrdered By: Dayana Plasencia on 06-24-2024 MCHC (RBC) [Mass/Vol] 33.4 g/dL 32-36 [facility] Mean platelet volume determi nationOrdered By: Dayana Plasencia on 06-24-2024 Platelet mean volume (Bld) [Entitic vol] 9.6 fL 6.2-12.0 [facility] Monocyte percentageOrdered B y: Dayana Plasencia on 06-24-2024 Monocytes/100 WBC (Bld) 12.7 % High 0-10 [facility] Neutrophil percentageOrdered By: Dayana Plasencia on 06-24-2024 Neutrophils/100 WBC (Bld) 60.6 % 47-70 [facility] Nucleated red blood cell per centageOrdered By: Dayana Plasencia on 06-24-2024 Nucleated RBC/100 WBC (Bld) [Ratio] 0 % 0-5 [facility] Platelet countOrdered By: Shoshana Plasencia on 06-24-2024 Platelets (Bld) [#/Vol] 201 10*3/uL 150-450 [facility] Potassium measurementOrdered By: Dayana Plasencia on 06-24-2024 Potassium [Moles/Vol] 4.3 mmol/L 3.5-5.1 [facility] RBC Auto (Bld) [#/Vol]Ordere d By: Dayana Plasencia on 06-24-2024 RBC (Bld) [#/Vol] 3.58 10*6/uL Low 4.6-6.2 [facility] Serum anion gap measurementO rdered By: Dayana Plasencia on 06-24-2024 Anion gap [Moles/Vol] 8 mmol/L 5-15 [facility] Serum globulin measurementOr dered By: Dayana Plasencia on 06-24-2024 Globulin (S) [Mass/Vol] 3.5 g/dL 2.2-4.2 [facility] Serum or plasma alanine alamo otransferase (ALT) measurementOrdered By: Dayana Plasencia on 06-24-2024 ALT [Catalytic activity/Vol] 25 U/L 16-61 [facility] Serum or plasma albumin lenka urement (mass/volume)Ordered By: Dayana Plasencia on 06-24-2024 Albumin [Mass/Vol] 3.7 g/dL 3.2-5.0 [facility] Serum or plasma alkaline yazan sphatase measurementOrdered By: Dayana Plasencia on 06-24-2024 ALP [Catalytic activity/Vol] 80 U/L 45-117 [facility] Serum or plasma calcium lenka urement (mass/volume)Ordered By: Dayana Plasencia on 06-24-2024 Calcium [Mass/Vol] 8.7 mg/dL 8.5-10.1 [facility] Serum or plasma creatinine m easurement (mass/volume)Ordered By: Dayana Plasencia on 06-24-2024 Creatinine [Mass/Vol] 1.42 mg/dL High 0.70-1.30 [facility] Comment on above: The validity of the calculated GFR & GFRAA in patients over 70 years has not been determined. Clinical correlation is essential. Serum or plasma urea nitroge n measurement (mass/volume)Ordered By: Dayana Plasencia on 06-24-2024 Urea nitrogen [Mass/Vol] 23 mg/dL High 7-18 [facility] Sodium levelOrdered By: Ramiro Plasencia on 06-24-2024 Sodium [Moles/Vol] 136 mmol/L 136-145 [facility] Total proteinOrdered By: Ari Plasencia on 06-24-2024 Protein [Mass/Vol] 7.2 g/dL 6.4-8.2 [facility] White blood cell (WBC) count Ordered By: Dayana Plasencia on 06-24-2024 WBC (Bld) [#/Vol] 6.4 10*3/uL 4.4-11.0 [facility] Chest PA and Lateralon 04-12 Chest PA and Lateral [facility] [address] [place] [address] [id number] Chest PA and Lateral MR#: [id number] Acct: [id number] Name: BRYCE ANN Rep #: [id number] : 1940 M 83 From: Sharmin Perry PCP: Dr. Gloria Hazel MD Status: [facility] Study: Chest PA and Lateral Date of Exam: 04/12/24 Exam# [id number] Ordering Dr: Gloria Hazel MD :[id number] INDICATION: cough EXAMINATION/TECHNIQUE: X-RAY - XR Chest 2 Views COMPARISON: CR ChestAug 2022 8:10pm FINDINGS: LINES/DEVICES: None. LUNGS: No consolidation, edema or effusion. No pneumothorax. Subsegmental atelectasis in the lung bases. MEDIASTINUM AND CARDIOVASCULAR STRUCTURES: Cardiac silhouette not enlarged. Central airways and mediastinal contour are unremarkable. 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 Postoperative changes of the right shoulder. RAD/Chest PA and Lateral IMPRESSION: No radiographic evidence of acute cardiopulmonary disease. Electronically Signed: Shramin Rodriguez MD at 3:54 EST Reading Location ID and State: [facility] / [place] Tel , Service support , CC: Dr. Gloria Hazel MD Java Programming Professor: Signed Normal [facility] CBC W/Diff, Automatedon 10-3 Absolute Lymph 2.07 X10 3/uL Normal 0.83-4.51 [facility] Comment on above: Performed By: #### L 100.0100, L500.2500 #### [facility] [address] [place], [address] Absolute Neut 3.5 X10 3/uL Normal 2.0-7.7 [facility] Comment on above: Performed By: #### L 100.0100, L500.2500 #### [facility] [address] [place], [address] Basophils/100 WBC (Bld) 0.7 % Normal 0-1 [facility] Comment on above: Performed By: #### L 100.0100, L500.2500 #### [facility] [address] [place], [address] Eosinophils/100 WBC (Bld) 5.2 % High 0-5 [facility] Comment on above: Performed By: #### L 100.0100, L500.2500 #### [facility] [address] [place], [address] Erythrocyte distribution width (RBC) [Ratio] 13.4 % Normal 11.6-14.6 [facility] Comment on above: Performed By: #### L 100.0100, L500.2500 #### [facility] [address] [place], [address] Hematocrit (Bld) [Volume fraction] 37.4 % Low 40-54 [facility] Comment on above: Performed By: #### L 100.0100, L500.2500 #### [facility] [address] [place], [address] Hemoglobin (Bld) [Mass/Vol] 12.0 g/dL Low 13.0-16.5 [facility] Comment on above: Performed By: #### L 100.0100, L500.2500 #### [facility] [address] [place], [address] IG% 0.100 Normal 0.0-0.9 [facility] Comment on above: Result Comment: IG% - Immature Granulocytes (promyelocytes, myelocytes and metamyelocytes) > 1% indicates that a LEFT SHIFT is Present. Performed By: #### L 100.0100, L500.2500 #### [facility] [address] [place], [address] Lymphocytes/100 WBC (Bld) 30.9 % Normal 19-41 [facility] Comment on above: Performed By: #### L 100.0100, L500.2500 #### [facility] [address] [place], [address] MCH (RBC) [Entitic mass] 33.2 pg High 27.0-32.0 [facility] Comment on above: Performed By: #### L 100.0100, L500.2500 #### [facility] [address] [place], [address] MCHC (RBC) [Mass/Vol] 32.1 g/dL Normal 32-36 [facility] Comment on above: Performed By: #### L 100.0100, L500.2500 #### [facility] [address] [place] [place], [address] MCV (RBC) [Entitic vol] 103.6 fL High 80-94 [facility] Comment on above: Performed By: #### L 100.0100, L500.2500 #### [facility] [address] [place], [address] Monocytes/100 WBC (Bld) 11.4 % High 0-10 [facility] Comment on above: Performed By: #### L 100.0100, L500.2500 #### [facility] [address] [place], [address] Neutrophils/100 WBC (Bld) 51.7 % Normal 47-70 [facility] Comment on above: Performed By: #### L 100.0100, L500.2500 #### [facility] [address] [place], [address] Nucleated RBC (Bld) [#/Vol] 0 10*3/uL Normal 0-5 [facility] Comment on above: Performed By: #### L 100.0100, L500.2500 #### [facility] [address] [place], [address] Platelet mean volume (Bld) [Entitic vol] 9.5 fL Normal 6.2-12.0 [facility] Comment on above: Performed By: #### L 100.0100, L500.2500 #### [facility] [address] [place], [address] Platelets (Bld) [#/Vol] 209 10*3/uL Normal 150-450 [facility] Comment on above: Performed By: #### L 100.0100, L500.2500 #### [facility] [address] [place], [address] RBC (Bld) [#/Vol] 3.61 10*6/uL Low 4.6-6.2 [facility] Comment on above: Performed By: #### L 100.0100, L500.2500 #### [facility] [address] [place], [address] RDW SD 51.8 fl High 35.1-43.9 [facility] Comment on above: Performed By: #### L 100.0100, L500.2500 #### [facility] [address] [place], [address] WBC (Bld) [#/Vol] 6.7 10*3/uL Normal 4.4-11.0 [facility] Comment on above: Performed By: #### L 100.0100, L500.2500 #### [facility] [address] [place], [address] Comprehensive Metabolic Prof ilon 03-28-2024 Albumin [Mass/Vol] 3.5 g/dL Normal 3.2-5.0 [facility] Comment on above: Performed By: #### L 100.0100, L500.2500 #### [facility] [address] [place], [address] Albumin/Globulin [Mass ratio] 1.1 {ratio} Normal 0.9-2.4 [facility] Comment on above: Performed By: #### L 100.0100, L500.2500 #### [facility] [address] [place], [address] ALK P 63 U/L Normal 45-117 [facility] Comment on above: Performed By: #### L 100.0100, L500.2500 #### [facility] [address] [place], [address] ALT [Catalytic activity/Vol] 29 U/L Normal 16-61 [facility] Comment on above: Performed By: #### L 100.0100, L500.2500 #### [facility] [address] [place], [address] AST [Catalytic activity/Vol] 26 U/L Normal 15-37 [facility] Comment on above: Performed By: #### L 100.0100, L500.2500 #### [facility] [address] [place], [address] Bilirubin [Mass/Vol] 0.60 mg/dL Normal 0.20-1.00 [facility] Comment on above: Result Comment: For patients on eltrombopag therapy, use of Dimension [place] TBIL is not recommended. Performed By: #### L 100.0100, L500.2500 #### [facility] [address] [place], [address] BUN/CRE 12.2 RATIO Normal 10-20 [facility] Comment on above: Performed By: #### L 100.0100, L500.2500 #### [facility] [address] [place], [address] CA,Total 8.9 mg/dL Normal 8.5-10.1 [facility] Comment on above: Performed By: #### L 100.0100, L500.2500 #### [facility] [address] [place], [address] Chloride [Moles/Vol] 99 mmol/L Normal 98-107 [facility] Comment on above: Performed By: #### L 100.0100, L500.2500 #### [facility] [address] [place], [address] CO2 [Moles/Vol] 30.0 mmol/L Normal 21.0-32.0 [facility] Comment on above: Performed By: #### L 100.0100, L500.2500 #### [facility] [address] [place], [address] Creatinine [Mass/Vol] 0.82 mg/dL Normal 0.70-1.30 [facility] Comment on above: Result Comment: The validity of the calculated GFR GFRAA in patients over 70 years has not been determined. Clinical correlation is essential. Performed By: #### L 100.0100, L500.2500 #### [facility] [address] [place], [address] EST GFR - AA 116 mL/min Normal >60 [facility] Comment on above: Result Comment: Afri can Citizen [place] GFR Calc Performed By: #### L 100.0100, L500.2500 #### [facility] [address] [place], [address] GAP 4 Low 5-15 [facility] Comment on above: Performed By: #### L 100.0100, L500.2500 #### [facility] [address] [place], [address] GFR/1.73 sq M.predicted among non-blacks MDRD (S/P/Bld) [Vol rate/Area] 96 mL/min/{1.73_m2} Normal >60 [facility] Comment on above: Result Comment: Non- GFR Calc Performed By: #### L 100.0100, L500.2500 #### [facility] [address] [place], [address] Globulin (S) [Mass/Vol] 3.1 g/dL Normal 2.2-4.2 [facility] Comment on above: Performed By: #### L 100.0100, L500.2500 #### [facility] [address] [place], [address] Glucose [Mass/Vol] 83 mg/dL Normal 74-106 [facility] Comment on above: Performed By: #### L 100.0100, L500.2500 #### [facility] [address] [place], [address] Potassium [Moles/Vol] 4.0 mmol/L Normal 3.5-5.1 [facility] Comment on above: Performed By: #### L 100.0100, L500.2500 #### [facility] [address] [place], [address] Sodium [Moles/Vol] 133 mmol/L Low 136-145 [facility] Comment on above: Performed By: #### L 100.0100, L500.2500 #### [facility] [address] [place], [address] T PROT 6.6 g/dL Normal 6.4-8.2 [facility] Comment on above: Performed By: #### L 100.0100, L500.2500 #### [facility] [address] [place], [address] Urea nitrogen [Mass/Vol] 10 mg/dL Normal 7-18 [facility] Comment on above: Performed By: #### L 100.0100, L500.2500 #### [facility] [address] [place], [address] Erythrocyte sedimentation ra teOrdered By: Catalino Short on 12-11-2023 ESR (Bld) [Velocity] 7 mm/h 0-20 [facility] No Panel InformationOrdered By: aCtalino Short on 12-11-2023 <2 U/mL 0-5 [facility] Serum tissue transglutaminas e (tTG) IgA antibody assay (units/volume)Ordered By: Catalino Short on 12-11-2023 tTG IgA Qn (S) <2 U/mL 0-3 [facility] Absolute lymphocyte countOrd ered By: Dayana Plasencia on 08-01-2023 Lymphocytes Auto (Unsp spec) [#/Vol] 2.39 10*3/uL 0.83-4.51 [facility] Automated lymphocyte count a s percentage of total leukocytesOrdered By: Dayana Plasencia on 08-01-2023 Lymphocytes/100 WBC Auto (Unsp spec) 29.4 % 19-41 [facility] Basophil percentageOrdered B y: Dayana Plasencia on 08-01-2023 Basophil percentage 11.9 g/dL 13.0-16.5 [facility] Basophil percentage 99 mg/dL 74-106 [facility] Basophil percentage 6.7 g/dL 6.4-8.2 [facility] Basophil percentage 0.40 mg/dL 0.20-1.00 [facility] Basophil percentage 140 mmol/L 136-145 [facility] Basophil percentage 3.9 mmol/L 3.5-5.1 [facility] Basophil percentage 102 mmol/L 98-107 [facility] Basophils (Bld) [#/Vol] 8.1 10*3/uL 4.4-11.0 [facility] Basophils (Bld) [#/Vol] 4.5 10*3/uL 2.0-7.7 [facility] Basophils/100 WBC (Bld) 55.4 % 47-70 [facility] Basophils/100 WBC (Bld) 9.5 % 0-10 [facility] Basophils/100 WBC (Bld) 5.0 % 0-5 [facility] Basophils/100 WBC (Bld) 0.6 % 0-1 [facility] Bilirubin [Mass/Vol] 0.40 mg/dL 0.20-1.00 [facility] Comment on above: For patients on eltr ombopag therapy, use of Dimension [place] TBIL is not recommended. Chloride [Moles/Vol] 102 mmol/L 98-107 [facility] Eosinophils/100 WBC (Bld) 5.0 % 0-5 [facility] Glucose [Mass/Vol] 99 mg/dL 74-106 [facility] Hemoglobin (Bld) [Mass/Vol] 11.9 g/dL 13.0-16.5 [facility] Monocytes/100 WBC (Bld) 9.5 % 0-10 [facility] Neutrophils (Bld) [#/Vol] 4.5 10*3/uL 2.0-7.7 [facility] Neutrophils/100 WBC (Bld) 55.4 % 47-70 [facility] Potassium [Moles/Vol] 3.9 mmol/L 3.5-5.1 [facility] Protein [Mass/Vol] 6.7 g/dL 6.4-8.2 [facility] Sodium [Moles/Vol] 140 mmol/L 136-145 [facility] WBC (Bld) [#/Vol] 8.1 10*3/uL 4.4-11.0 [facility] Determination of erythrocyte mean corpuscular volume (MCV)Ordered By: Dayana Plasencia on 08-01-2023 MCV (RBC) [Entitic vol] 101.4 fL 80-94 [facility] Erythrocyte distribution wid th ratioOrdered By: Dayanajaime Plasencia on 08-01-2023 Erythrocyte distribution width (RBC) [Ratio] 15.7 % 11.6-14.6 [facility] Erythrocyte distribution wid th standard deviationOrdered By: Dayana Plasencia on 08-01-2023 Erythrocyte distribution width (RBC) [Entitic vol] 58.6 fL 35.1-43.9 [facility] Hematocrit Auto (Bld) [Volum e fraction]Ordered By: Dayanajaime Plasencia on 08-01-2023 Hematocrit (Bld) [Volume fraction] 36.3 % 40-54 [facility] Immature granulocytes/100 WB C Auto (Bld)Ordered By: Dayana Plasencia on 08-01-2023 Immature granulocytes/100 WBC (Bld) 0.100 % 0.0-0.9 [facility] Comment on above: IG% - Immature Granu locytes (promyelocytes, myelocytes and metamyelocytes) > 1% indicates that a LEFT SHIFT is Present. Laboratory - Chemistry and C hemistry - challengeOrdered By: Dayana Plasencia on 08-01-2023 Albumin/Globulin [Mass ratio] 1.2 {ratio} 0.9-2.4 [facility] ALP [Catalytic activity/Vol] 82 U/L 45-117 [facility] ALT [Catalytic activity/Vol] 25 U/L 16-61 [facility] CO2 [Moles/Vol] 33.0 mmol/L 21.0-32.0 [facility] Globulin (S) [Mass/Vol] 3.1 g/dL 2.2-4.2 [facility] Urea nitrogen/Creatinine [Mass ratio] 13.3 mg/mg 10-20 [facility] - Hematology and Cell countsOrdered By: Dayana Plasencia on 08-01-2023 MCH (RBC) [Entitic mass] 33.2 pg 27.0-32.0 [facility] MCHC (RBC) [Mass/Vol] 32.8 g/dL 32-36 [facility] Nucleated RBC/100 WBC (Bld) [Ratio] 0 % 0-5 [facility] Platelet mean volume (Bld) [Entitic vol] 9.4 fL 6.2-12.0 [facility] Platelets (Bld) [#/Vol] 206 10*3/uL 150-450 [facility] No Panel InformationOrdered By: Dayana Plasencia on 08-01-2023 Estimated GFR (MDRD) Amer 80 mL/min >60 [facility] Comment on above: GFR Calc Estimated GFR (MDRD) Non-Af Amer 66 mL/min >60 [facility] Comment on above: Non- GFR Calc 33.2 pg 27.0-32.0 [facility] 32.8 g/dL 32-36 [facility] 206 K/mm3 150-450 [facility] 9.4 fl 6.2-12.0 [facility] 0 % 0-5 [facility] 66 mL/min >60 [facility] 80 mL/min >60 [facility] 13.3 RATIO 10-20 [facility] 3.1 g/dL 2.2-4.2 [facility] 1.2 RATIO 0.9-2.4 [facility] 82 U/L 45-117 [facility] 25 U/L 16-61 [facility] 33.0 mmol/L 21.0-32.0 [facility] RBC Auto (Bld) [#/Vol]Ordere d By: Dayana Plasencia on 08-01-2023 RBC (Bld) [#/Vol] 3.58 10*6/uL 4.6-6.2 [facility] Serum or plasma calcium lenka urement (mass/volume)Ordered By: Dayana Plasencia on 08-01-2023 Calcium [Mass/Vol] 8.6 mg/dL 8.5-10.1 [facility] Serum or plasma creatinine m easurement (mass/volume)Ordered By: Dayana Plasencia on 08-01-2023 Creatinine [Mass/Vol] 1.13 mg/dL 0.70-1.30 [facility] Comment on above: The validity of the calculated GFR & GFRAA in patients over 70 years has not been determined. Clinical correlation is essential. Serum or plasma urea nitroge n measurement (mass/volume)Ordered By: Dayana Plasencia on 08-01-2023 Urea nitrogen [Mass/Vol] 15 mg/dL 7-18 [facility] [facility] Th[facility] Papanicolaou smear with manual screeningOrdered By: Dayana Plasencia on 08-01-2023 Thin prep Papanicolaou smear with manual screening 3.6 g/dL 3.2-5.0 [facility] Thin prep Papanicolaou smear with manual screening 26 U/L 15-37 [facility] Thin prep Papanicolaou smear with manual screening 5 5-15 [facility] Serum or plasma cortisol aditya surement (mass/volume)Ordered By: Jasbir Perez on 06-22-2023 Cortisol [Mass/Vol] 20.30 ug/dL 3.44-22.45 [facility] Comment on above: Adult (AM) 5.27 - 22 .45 ug/dL Adult (PM) 3.44 - 16.76 ug/dLPlease note revised CORTISOL reference range effective 2019. Absolute lymphocyte countOrd ered By: Catalino Short on 06-15-2023 Lymphocytes Auto (Unsp spec) [#/Vol] 2.20 10*3/uL 0.83-4.51 [facility] Automated lymphocyte count a s percentage of total leukocytesOrdered By: Catalino Short on 06-15-2023 Lymphocytes/100 WBC Auto (Unsp spec) 26.8 % 19-41 [facility] Basophil percentageOrdered B y: Catalino Short on 06-15-2023 Basophil percentage 12.9 g/dL 13.0-16.5 [facility] Basophil percentage 96 mg/dL 74-106 [facility] Basophil percentage 6.9 g/dL 6.4-8.2 [facility] Basophil percentage 0.30 mg/dL 0.20-1.00 [facility] Basophil percentage 136 mmol/L 136-145 [facility] Basophil percentage 3.8 mmol/L 3.5-5.1 [facility] Basophil percentage 100 mmol/L 98-107 [facility] Basophil percentage 242 U/L 87-241 [facility] Basophils (Bld) [#/Vol] 8.2 10*3/uL 4.4-11.0 [facility] Basophils (Bld) [#/Vol] 5.0 10*3/uL 2.0-7.7 [facility] Basophils/100 WBC (Bld) 61.0 % 47-70 [facility] Basophils/100 WBC (Bld) 10.2 % 0-10 [facility] Basophils/100 WBC (Bld) 1.6 % 0-5 [facility] Basophils/100 WBC (Bld) 0.2 % 0-1 [facility] Bilirubin [Mass/Vol] 0.30 mg/dL 0.20-1.00 [facility] Comment on above: For patients on eltr ombopag therapy, use of Dimension [place] TBIL is not recommended. Chloride [Moles/Vol] 100 mmol/L 98-107 [facility] Eosinophils/100 WBC (Bld) 1.6 % 0-5 [facility] Glucose [Mass/Vol] 96 mg/dL 74-106 [facility] Hemoglobin (Bld) [Mass/Vol] 12.9 g/dL 13.0-16.5 [facility] LDH [Catalytic activity/Vol] 242 U/L 87-241 [facility] Monocytes/100 WBC (Bld) 10.2 % 0-10 [facility] Neutrophils (Bld) [#/Vol] 5.0 10*3/uL 2.0-7.7 [facility] Neutrophils/100 WBC (Bld) 61.0 % 47-70 [facility] Potassium [Moles/Vol] 3.8 mmol/L 3.5-5.1 [facility] Protein [Mass/Vol] 6.9 g/dL 6.4-8.2 [facility] Sodium [Moles/Vol] 136 mmol/L 136-145 [facility] WBC (Bld) [#/Vol] 8.2 10*3/uL 4.4-11.0 [facility] Determination of erythrocyte mean corpuscular volume (MCV)Ordered By: Catalino Short on 06-15-2023 MCV (RBC) [Entitic vol] 100.2 fL 80-94 [facility] Erythrocyte distribution wid th ratioOrdered By: [facility] on 06-15-2023 Erythrocyte distribution width (RBC) [Ratio] 16.0 % 11.6-14.6 [facility] Erythrocyte distribution wid th standard deviationOrdered By: [facility] on 06-15-2023 Erythrocyte distribution width (RBC) [Entitic vol] 58.9 fL 35.1-43.9 [facility] Erythrocyte sedimentation ra teOrdered By: [facility] on 06-15-2023 ESR (Bld) [Velocity] 10 mm/h 0-20 [facility] Hematocrit Auto (Bld) [Volum e fraction]Ordered By: [facility] on 06-15-2023 Hematocrit (Bld) [Volume fraction] 41.1 % 40-54 [facility] Immature granulocytes/100 WB C Auto (Bld)Ordered By: [facility] on 06-15-2023 Immature granulocytes/100 WBC (Bld) 0.200 % 0.0-0.9 [facility] Comment on above: IG% - Immature Granu locytes (promyelocytes, myelocytes and metamyelocytes) > 1% indicates that a LEFT SHIFT is Present. Iron measurement (mass/mass) Ordered By: [facility] on 06-15-2023 Iron (Unsp spec) [Mass/Mass] 60 ug/dL 65-175 [facility] Laboratory - Chemistry and C hemistry - challengeOrdered By: [facility] on 06-15-2023 Albumin/Globulin [Mass ratio] 1.0 {ratio} 0.9-2.4 [facility] ALP [Catalytic activity/Vol] 83 U/L 45-117 [facility] ALT [Catalytic activity/Vol] 32 U/L 16-61 [facility] CO2 [Moles/Vol] 33.0 mmol/L 21.0-32.0 [facility] Ferritin [Mass/Vol] 1070 ng/mL 26-388 [facility] Globulin (S) [Mass/Vol] 3.4 g/dL 2.2-4.2 [facility] Urea nitrogen/Creatinine [Mass ratio] 16.4 mg/mg 10-20 [facility] Laboratory - Hematology and Cell countsOrdered By: [facility] on 06-15-2023 MCH (RBC) [Entitic mass] 31.5 pg 27.0-32.0 [facility] MCHC (RBC) [Mass/Vol] 31.4 g/dL 32-36 [facility] Nucleated RBC/100 WBC (Bld) [Ratio] 0 % 0-5 [facility] Platelets (Bld) [#/Vol] 194 10*3/uL 150-450 [facility] No Panel InformationOrdered By: Catalino Short on 06-15-2023 C-Reactive Protein Extended Range 4.79 mg/L 0.0-3.0 [facility] Comment on above: C-Reactive Protein ( CRP) provides useful information for thediagnosis, therapy and monitoring of inflammatory processesand associated diseases. For the evaluation of Relative Riskfor Cardiovascular Disease, a High Sensitivity CRP (HSCRP)should be ordered. Estimated Creatinine Clearance Calc 39.53 ml/min [facility] Estimated GFR (MDRD) Amer 73 mL/min >60 [facility] Comment on above: GFR Calc Estimated GFR (MDRD) Non-Af Amer 61 mL/min >60 [facility] Comment on above: Non- GFR Calc Total Iron Binding Capacity 274 ug/dL 250-450 [facility] 31.5 pg 27.0-32.0 [facility] 31.4 g/dL 32-36 [facility] 194 K/mm3 150-450 [facility] 0 % 0-5 [facility] 61 mL/min >60 [facility] 73 mL/min >60 [facility] 39.53 ml/min [facility] 16.4 RATIO 10-20 [facility] 3.4 g/dL 2.2-4.2 [facility] 1.0 RATIO 0.9-2.4 [facility] 83 U/L 45-117 [facility] 32 U/L 16-61 [facility] 33.0 mmol/L 21.0-32.0 [facility] 4.79 mg/L 0.0-3.0 [facility] 274 ug/dL 250-450 [facility] 1070 ng/mL 26-388 [facility] Platelet mean volume Michel-Ec ker (Bld) [Entitic vol]Ordered By: Catalino Short on 06-15-2023 Platelet mean volume (Bld) [Entitic vol] 9.2 fL 6.2-12.0 [facility] RBC Auto (Bld) [#/Vol]Ordere d By: Catalino Short on 06-15-2023 RBC (Bld) [#/Vol] 4.10 10*6/uL 4.6-6.2 [facility] Serum or plasma calcium lenka urement (mass/volume)Ordered By: Catalino Short on 06-15-2023 Calcium [Mass/Vol] 8.9 mg/dL 8.5-10.1 [facility] Serum or plasma creatinine m easurement (mass/volume)Ordered By: Catalino Short on 06-15-2023 Creatinine [Mass/Vol] 1.22 mg/dL 0.70-1.30 [facility] Comment on above: The validity of the calculated GFR & GFRAA in patients over 70 years has not been determined. Clinical correlation is essential. Serum or plasma iron saturat ion measurement (mass fraction)Ordered By: Catalino Short on 06-15-2023 Iron saturation [Mass fraction] 21.9 % 15.0-55.0 [facility] Serum or plasma urea nitroge n measurement (mass/volume)Ordered By: Catalino Short on 06-15-2023 Urea nitrogen [Mass/Vol] 20 mg/dL 7-18 [facility] Thin prep Papanicolaou smear with manual screeningOrdered By: Catalino Short on 06-15-2023 Thin prep Papanicolaou smear with manual screening 3.5 g/dL 3.2-5.0 [facility] Thin prep Papanicolaou smear with manual screening 22 U/L 15-37 [facility] Thin prep Papanicolaou smear with manual screening 3 5-15 [facility] Absolute lymphocyte countOrd ered By: Melva Wheeler on 06-03-2023 Lymphocytes Auto (Unsp spec) [#/Vol] 1.19 10*3/uL 0.83-4.51 [facility] Basophil percentageOrdered B y: Melva Wheeler on 06-03-2023 Basophil percentage 106 mg/dL 74-106 [facility] Basophil percentage 143 mmol/L 136-145 [facility] Basophil percentage 3.5 mmol/L 3.5-5.1 [facility] Basophil percentage 109 mmol/L 98-107 [facility] Basophils (Bld) [#/Vol] 5.4 10*3/uL 4.4-11.0 [facility] Basophils (Bld) [#/Vol] 3.5 10*3/uL 2.0-7.7 [facility] Basophils/100 WBC (Bld) 0.2 % 0-1 [facility] Basophils/100 WBC (Bld) 65.2 % 47-70 [facility] Basophils/100 WBC (Bld) 0.0 % 0-5 [facility] Chloride [Moles/Vol] 109 mmol/L 98-107 [facility] Eosinophils/100 WBC (Bld) 0.0 % 0-5 [facility] Glucose [Mass/Vol] 106 mg/dL 74-106 [facility] Comment on above: Fasting Glucose resu lt from 100 to 125 mg/dL suggests IMPAIRED HOMEOSTASIS per A.D.A. criteria. Neutrophils (Bld) [#/Vol] 3.5 10*3/uL 2.0-7.7 [facility] Neutrophils/100 WBC (Bld) 65.2 % 47-70 [facility] Potassium [Moles/Vol] 3.5 mmol/L 3.5-5.1 [facility] Sodium [Moles/Vol] 143 mmol/L 136-145 [facility] WBC (Bld) [#/Vol] 5.4 10*3/uL 4.4-11.0 [facility] Blood erythrocytes count (nu mber/volume)Ordered By: Melva Wheeler on 06-03-2023 RBC (Bld) [#/Vol] 3.81 10*6/uL 4.6-6.2 [facility] Blood hemoglobin measurement (mass/volume)Ordered By: Melva Wheeler on 06-03-2023 Hemoglobin (Bld) [Mass/Vol] 12.0 g/dL 13.0-16.5 [facility] Blood lymphocytes/100 leukoc ytesOrdered By: Melva Wheeler on 06-03-2023 Lymphocytes/100 WBC (Bld) 22.1 % 19-41 [facility] Blood monocytes/100 leukocyt esOrdered By: Melva Wheeler on 01-06-2024 Monocytes/100 WBC (Bld) 12.3 % 0-10 [facility] Blood platelet mean volumeOr dered By: Melva Wheeler on 06-03-2023 Platelet mean volume (Bld) [Entitic vol] 9.7 fL 6.2-12.0 [facility] Determination of erythrocyte mean corpuscular volume (MCV)Ordered By: Melva Wheeler on 06-03-2023 MCV (RBC) [Entitic vol] 97.9 fL 80-94 [facility] Hematocrit Auto (Bld) [Volum e fraction]Ordered By: Melva Wheeler on 06-03-2023 Hematocrit (Bld) [Volume fraction] 37.3 % 40-54 [facility] Laboratory - Chemistry and C hemistry - challengeOrdered By: Melva Wheeler on 06-03-2023 CO2 [Moles/Vol] 28.0 mmol/L 21.0-32.0 [facility] Urea nitrogen/Creatinine [Mass ratio] 29.4 mg/mg 10-20 [facility] Laboratory - Hematology and Cell countsOrdered By: Melva Wheeler on 06-03-2023 Erythrocyte distribution width (RBC) [Entitic vol] 58.8 fL 35.1-43.9 [facility] Erythrocyte distribution width (RBC) [Ratio] 16.3 % 11.6-14.6 [facility] Immature granulocytes/100 WBC (Bld) 0.200 % 0.0-0.9 [facility] Comment on above: IG% - Immature Granu locytes (promyelocytes, myelocytes and metamyelocytes) > 1% indicates that a LEFT SHIFT is Present. MCH (RBC) [Entitic mass] 31.5 pg 27.0-32.0 [facility] Nucleated RBC/100 WBC (Bld) [Ratio] 0 % 0-5 [facility] MCHC Auto (RBC) [Mass/Vol]Or dered By: Melva Wheeler on 06-03-2023 MCHC (RBC) [Mass/Vol] 32.2 g/dL 32-36 [facility] No Panel InformationOrdered By: Melva Wheeler on 06-03-2023 Estimated Creatinine Clearance Calc 43.58 ml/min [facility] Estimated GFR (MDRD) Amer 136 mL/min >60 [facility] Comment on above: GFR Calc Estimated GFR (MDRD) Non-Af Amer 112 mL/min >60 [facility] Comment on above: Non- GFR Calc 31.5 pg 27.0-32.0 [facility] 16.3 % 11.6-14.6 [facility] 58.8 fl 35.1-43.9 [facility] 0.200 % 0.0-0.9 [facility] 0 % 0-5 [facility] 112 mL/min >60 [facility] 136 mL/min >60 [facility] 43.58 ml/min [facility] 29.4 RATIO 10-20 [facility] 28.0 mmol/L 21.0-32.0 [facility] Platelets bldOrdered By: Cristel Wheeler on 06-03-2023 Platelets (Bld) [#/Vol] 165 10*3/uL 150-450 [facility] Serum or plasma calcium lenka urement (mass/volume)Ordered By: Melva Wheeler on 06-03-2023 Calcium [Mass/Vol] 8.2 mg/dL 8.5-10.1 [facility] Serum or plasma creatinine m easurement (mass/volume)Ordered By: Melva Wheeler on 06-03-2023 Creatinine [Mass/Vol] 0.72 mg/dL 0.70-1.30 [facility] Comment on above: The validity of the calculated GFR & GFRAA in patients over 70 years has not been determined. Clinical correlation is essential. Serum or plasma urea nitroge n measurement (mass/volume)Ordered By: Melva Wheeler on 06-03-2023 Urea nitrogen [Mass/Vol] 21 mg/dL 7-18 [facility] Thin prep Papanicolaou smear with manual screeningOrdered By: Melva Wheeler on 06-03-2023 Thin prep Papanicolaou smear with manual screening 6 5-15 [facility] Basophil percentageOrdered B y: Melva Wheeler on 06-02-2023 Basophil percentage 4.1 mg/dL 2.5-4.9 [facility] Basophil percentage 5.7 g/dL 6.4-8.2 [facility] Basophil percentage 0.30 mg/dL 0.20-1.00 [facility] Bilirubin [Mass/Vol] 0.30 mg/dL 0.20-1.00 [facility] Comment on above: For patients on eltr ombopag therapy, use of Dimension [place] TBIL is not recommended. Protein [Mass/Vol] 5.7 g/dL 6.4-8.2 [facility] Laboratory - Chemistry and C hemistry - challengeOrdered By: Melva Wheeler on 06-02-2023 ALP [Catalytic activity/Vol] 51 U/L 45-117 [facility] ALT [Catalytic activity/Vol] 21 U/L 16-61 [facility] Free T4 [Mass/Vol] 1.08 ng/dL 0.76-1.46 [facility] Globulin (S) [Mass/Vol] 3.0 g/dL 2.2-4.2 [facility] Magnesium [Mass/Vol] 2.4 mg/dL 1.6-2.6 [facility] No Panel InformationOrdered By: Melva Wheeler on 06-02-2023 Thyroid Stimulating Hormone (TSH) 0.27 uIU/mL 0.358-3.74 [facility] 3.0 g/dL 2.2-4.2 [facility] 51 U/L 45-117 [facility] 21 U/L 16- [facility] 2.4 mg/dL 1.6-2.6 [facility] 0.27 uIU/mL 0.358-3.74 [facility] 1.08 ng/dL 0.76-1.46 [facility] Serum or plasma albumin lenka urement (mass/volume)Ordered By: Melva Wheeler on 06-02-2023 Albumin [Mass/Vol] 2.7 g/dL 3.2-5.0 [facility] Serum or plasma albumin/glob ulin mass ratioOrdered By: Melva Wheeler on 06-02-2023 Albumin/Globulin [Mass ratio] 0.9 {ratio} 0.9-2.4 [facility] Thin prep Papanicolaou smear with manual screeningOrdered By: Melva Wheeler on 06-02-2023 Thin prep Papanicolaou smear with manual screening 19 U/L 15-37 [facility] Absolute lymphocyte countOrd ered By: Halle Dale on 06-01-2023 Lymphocytes Auto (Unsp spec) [#/Vol] 0.53 10*3/uL 0.83-4.51 [facility] Bacteria identified Cx Nom ( U)Ordered By: Halle Dale on 06-01-2023 Culture, urine Positive [facility] Basophil percentageOrdered B y: Halle Dale on 06-01-2023 Basophil percentage 5-10 SEEN /hpf 0-5 [facility] Basophils/100 WBC (Bld) 0.6 % 0-1 [facility] Bilirubin [Mass/Vol] 0.40 mg/dL 0.20-1.00 [facility] Comment on above: For patients on eltr ombopag therapy, use of Dimension [place] TBIL is not recommended. Chloride [Moles/Vol] 103 mmol/L 98-107 [facility] Eosinophils/100 WBC (Bld) 1.6 % 0-5 [facility] Glucose [Mass/Vol] 111 mg/dL 74-106 [facility] Comment on above: Fasting Glucose resu lt from 100 to 125 mg/dL suggests IMPAIRED HOMEOSTASIS per A.D.A. criteria. Neutrophils (Bld) [#/Vol] 3.7 10*3/uL 2.0-7.7 [facility] Neutrophils/100 WBC (Bld) 72.4 % 47-70 [facility] Potassium [Moles/Vol] 4.0 mmol/L 3.5-5.1 [facility] Protein [Mass/Vol] 6.9 g/dL 6.4-8.2 [facility] Sodium [Moles/Vol] 139 mmol/L 136-145 [facility] WBC (Bld) [#/Vol] 5.0 10*3/uL 4.4-11.0 [facility] Bilirubin Test strip Ql (U)O rdered By: Halle Dale on 06-01-2023 Bilirubin Ql (U) Negative Negative [facility] Blood erythrocytes count (nu mber/volume)Ordered By: Halle Dale on 06-01-2023 RBC (Bld) [#/Vol] 3.95 10*6/uL 4.6-6.2 [facility] Blood hemoglobin measurement (mass/volume)Ordered By: Halle Dale on 06-01-2023 Hemoglobin (Bld) [Mass/Vol] 12.8 g/dL 13.0-16.5 [facility] Blood lymphocytes/100 leukoc ytesOrdered By: Halle Dale on 06-01-2023 Lymphocytes/100 WBC (Bld) 10.5 % 19-41 [facility] Blood manual differential co mment interpretation (narrative result)Ordered By: Halle Dale on 06-01-2023 Manual differential comment Hiren (Bld) [Interp] COMMENT [facility] Comment on above: LYMPHOPENIA. Blood monocytes/100 leukocyt esOrdered By: Halle Dale on 06-01-2023 Monocytes/100 WBC (Bld) 14.7 % 0-10 [facility] Blood platelet mean volumeOr dered By: Halle Dale on 06-01-2023 Platelet mean volume (Bld) [Entitic vol] 9.6 fL 6.2-12.0 [facility] Culture, urineOrdered By: Valentín Dale on 06-01-2023 Bacteria identified Cx Nom (U) Positive [facility] Bacteria identified Cx Nom (U) Positive [facility] Determination of erythrocyte mean corpuscular volume (MCV)Ordered By: Halle Dale on 06-01-2023 MCV (RBC) [Entitic vol] 98.0 fL 80-94 [facility] Hematocrit Auto (Bld) [Volum e fraction]Ordered By: Halle Dale on 06-01-2023 Hematocrit (Bld) [Volume fraction] 38.7 % 40-54 [facility] Ketones Test strip Ql (U)Ord ered By: Halle Dale on 06-01-2023 Ketones Ql (U) 50 mg/dl Negative [facility] Laboratory - Chemistry and C hemistry - challengeOrdered By: Halle Dale on 06-01-2023 ALP [Catalytic activity/Vol] 67 U/L 45-117 [facility] ALT [Catalytic activity/Vol] 26 U/L 16-61 [facility] CK [Catalytic activity/Vol] 184 U/L 39-308 [facility] CO2 [Moles/Vol] 30.0 mmol/L 21.0-32.0 [facility] Globulin (S) [Mass/Vol] 3.5 g/dL 2.2-4.2 [facility] Lipase [Catalytic activity/Vol] 12 U/L 13-75 [facility] Comment on above: Please note:LIPASE r evised reference range effective 22. New Lipase methodology. Expected to produce lower values than the previous assay method. NEW Reference Range: 13 - 75 U/L Urea nitrogen/Creatinine [Mass ratio] 15.3 mg/mg 10-20 [facility] Laboratory - Hematology and Cell countsOrdered By: Halle Dale on 06-01-2023 Erythrocyte distribution width (RBC) [Entitic vol] 58.1 fL 35.1-43.9 [facility] Erythrocyte distribution width (RBC) [Ratio] 15.9 % 11.6-14.6 [facility] Immature granulocytes/100 WBC (Bld) 0.200 % 0.0-0.9 [facility] Comment on above: IG% - Immature Granu locytes (promyelocytes, myelocytes and metamyelocytes) > 1% indicates that a LEFT SHIFT is Present. MCH (RBC) [Entitic mass] 32.4 pg 27.0-32.0 [facility] Nucleated RBC/100 WBC (Bld) [Ratio] 0 % 0-5 [facility] Laboratory - Microbiology an d Antimicrobial susceptibilityOrdered By: Halle Dale on 06-01-2023 SARS-CoV-2 (COVID-19) RNA JUDI+probe Ql (Unsp spec) SARS-CoV-2 (COVID 19 PCR) [facility] SARS-CoV-2 (COVID-19) RNA JUDI+probe Ql (Unsp spec) SARS-CoV-2 (COVID 19 PCR) [facility] MCHC Auto (RBC) [Mass/Vol]Or dered By: Halle Dale on 06-01-2023 MCHC (RBC) [Mass/Vol] 33.1 g/dL 32-36 [facility] Mucus LM Ql (Urine sed)Order ed By: Halle Dale on 06-01-2023 Mucus Ql (Urine sed) 0 SEEN /hpf [facility] Nitrite Test strip Ql (U)Ord ered By: Halle Dale on 06-01-2023 Nitrite Ql (U) Negative Negative [facility] No Panel InformationOrdered By: Melva Wheeler on 06-01-2023 Vitamin D 25-Hydroxy 50.5 ng/mL [facility] Comment on above: Vitamin D 25(OH) Sta tus Range Deficiency <20 ng/mL (50nmol/L) Insufficiency 20 - 30 ng/mL (50 - 75 nmol/L) Sufficiency 30 - 100 ng/mL (75 - 250 nmol/L) Toxicity >100 ng/mL (>250 nmol/L) 50.5 ng/mL [facility] No Panel InformationOrdered By: Halle Dale on 06-01-2023 Estimated Creatinine Clearance Calc 47.37 ml/min [facility] Estimated GFR (MDRD) Amer 102 mL/min >60 [facility] Comment on above: GFR Calc Estimated GFR (MDRD) Non-Af Amer 85 mL/min >60 [facility] Comment on above: Non- GFR Calc Troponin I High Sensitivity 20 pg/mL 3.0-78.0 [facility] Comment on above: Please Note: New [place] t Units and Gender Specific Reference Ranges. For more information see Policy Stat Procedure [place] High Sensitivity Troponin (TNIH) and attachments. 12 U/L 13-75 [facility] 184 U/L 39-308 [facility] 20 pg/mL 3.0-78.0 [facility] SARS-CoV-2 (COVID 19 PCR) [facility] Platelets bldOrdered By: Nelia Dale on 06-01-2023 Platelets (Bld) [#/Vol] 164 10*3/uL 150-450 [facility] Protein Test strip Ql (U)Ord ered By: Halle Dale on 06-01-2023 Protein Ql (U) 15 mg/dl Negative [facility] Serum or plasma albumin lenka urement (mass/volume)Ordered By: Halle Dale on 06-01-2023 Albumin [Mass/Vol] 3.4 g/dL 3.2-5.0 [facility] Serum or plasma albumin/glob ulin mass ratioOrdered By: Halle Dale on 06-01-2023 Albumin/Globulin [Mass ratio] 1.0 {ratio} 0.9-2.4 [facility] Serum or plasma calcium lenka urement (mass/volume)Ordered By: Halle Dale on 06-01-2023 Calcium [Mass/Vol] 8.5 mg/dL 8.5-10.1 [facility] Serum or plasma creatinine m easurement (mass/volume)Ordered By: Halle Dale on 06-01-2023 Creatinine [Mass/Vol] 0.92 mg/dL 0.70-1.30 [facility] Comment on above: The validity of the calculated GFR & GFRAA in patients over 70 years has not been determined. Clinical correlation is essential. Serum or plasma urea nitroge n measurement (mass/volume)Ordered By: Halle Dale on 06-01-2023 Urea nitrogen [Mass/Vol] 14 mg/dL 7-18 [facility] Squamous epithelial cells de tection in urine sediment by light microscopyOrdered By: Halle Dale on 06-01-2023 Epithelial cells.squamous LM Ql (Urine sed) 5-10 SEEN /hpf 0-5 [facility] Thin prep Papanicolaou smear with manual screeningOrdered By: Halle Dale on 06-01-2023 Thin prep Papanicolaou smear with manual screening 25 U/L 15-37 [facility] Thin prep Papanicolaou smear with manual screening 6 5-15 [facility] Urine blood detectionOrdered By: Halle Dale on 06-01-2023 RBC Ql (U) Negative Negative [facility] RBC Ql (U) 0 SEEN /hpf 0-5 [facility] Urine clarityOrdered By: Nelia Dale on 06-01-2023 Clarity (U) Clear Clear [facility] Urine color determinationOrd ered By: Halle Dale on 06-01-2023 Color (U) YELLOW Yellow [facility] Urine glucose detectionOrder ed By: Halle Dale on 06-01-2023 Glucose Ql (U) Negative Normal [facility] Urine leukocyte esterase det ection by dipstickOrdered By: Halle Dale on 06-01-2023 Leukocyte esterase Test strip Ql (U) Negative Negative [facility] Urine pHOrdered By: Halle lee on 06-01-2023 pH (U) 7.0 [pH] 5.0 - 8.0 [facility] Urine sediment bacteria coun t by microscopy (number/high power field)Ordered By: Halle Dale on 06-01-2023 Bacteria LM.HPF (Urine sed) [#/Area] 2 /[HPF] None Seen [facility] Urine specific gravity measu rementOrdered By: Halle Dale on 06-01-2023 Specific gravity (U) [Rel density] 1.010 1.002-1.03 0 [facility] Urobilinogen Auto test strip Ql (U)Ordered By: Halle Dale on 06-01-2023 Urobilinogen Ql (U) Normal mg/dl Normal [facility] Absolute lymphocyte countOrd ered By: Dayana Plasencia on 05-08-2023 Lymphocytes Auto (Unsp spec) [#/Vol] 1.70 10*3/uL 0.83-4.51 [facility] Basophil percentageOrdered B y: Dayana Plasencia on 05-08-2023 Basophil percentage 67 mg/dL 74-106 [facility] Basophil percentage 6.8 g/dL 6.4-8.2 [facility] Basophil percentage 0.40 mg/dL 0.20-1.00 [facility] Basophil percentage 138 mmol/L 136-145 [facility] Basophil percentage 4.0 mmol/L 3.5-5.1 [facility] Basophil percentage 102 mmol/L 98-107 [facility] Basophils (Bld) [#/Vol] 5.7 10*3/uL 4.4-11.0 [facility] Basophils (Bld) [#/Vol] 2.9 10*3/uL 2.0-7.7 [facility] Basophils/100 WBC (Bld) 0.7 % 0-1 [facility] Basophils/100 WBC (Bld) 50.6 % 47-70 [facility] Basophils/100 WBC (Bld) 5.8 % 0-5 [facility] Bilirubin [Mass/Vol] 0.40 mg/dL 0.20-1.00 [facility] Comment on above: For patients on eltr ombopag therapy, use of Dimension [place] TBIL is not recommended. Chloride [Moles/Vol] 102 mmol/L 98-107 [facility] Eosinophils/100 WBC (Bld) 5.8 % 0-5 [facility] Glucose [Mass/Vol] 67 mg/dL 74-106 [facility] Neutrophils (Bld) [#/Vol] 2.9 10*3/uL 2.0-7.7 [facility] Neutrophils/100 WBC (Bld) 50.6 % 47-70 [facility] Potassium [Moles/Vol] 4.0 mmol/L 3.5-5.1 [facility] Protein [Mass/Vol] 6.8 g/dL 6.4-8.2 [facility] Sodium [Moles/Vol] 138 mmol/L 136-145 [facility] WBC (Bld) [#/Vol] 5.7 10*3/uL 4.4-11.0 [facility] Blood erythrocytes count (nu mber/volume)Ordered By: Dayana Plasencia on 05-08-2023 RBC (Bld) [#/Vol] 4.09 10*6/uL 4.6-6.2 [facility] Blood hemoglobin measurement (mass/volume)Ordered By: Dayana Plasencia on 05-08-2023 Hemoglobin (Bld) [Mass/Vol] 13.0 g/dL 13.0-16.5 [facility] Blood lymphocytes/100 leukoc ytesOrdered By: Dayana Plasencia on 05-08-2023 Lymphocytes/100 WBC (Bld) 30.0 % 19-41 [facility] Blood monocytes/100 leukocyt esOrdered By: Dayana Plasencia on 05-08-2023 Monocytes/100 WBC (Bld) 12.7 % 0-10 [facility] Blood platelet mean volumeOr dered By: Dayana Plasencia on 05-08-2023 Platelet mean volume (Bld) [Entitic vol] 10.0 fL 6.2-12.0 [facility] Determination of erythrocyte mean corpuscular volume (MCV)Ordered By: Dayana Plasencia on 05-08-2023 MCV (RBC) [Entitic vol] 101.5 fL 80-94 [facility] Hematocrit Auto (Bld) [Volum e fraction]Ordered By: Dayana Plasencia on 05-08-2023 Hematocrit (Bld) [Volume fraction] 41.5 % 40-54 [facility] Laboratory - Chemistry and C hemistry - challengeOrdered By: Dayana Plasencia on 05-08-2023 ALP [Catalytic activity/Vol] 70 U/L 45-117 [facility] ALT [Catalytic activity/Vol] 25 U/L 16-61 [facility] CO2 [Moles/Vol] 31.0 mmol/L 21.0-32.0 [facility] Globulin (S) [Mass/Vol] 3.2 g/dL 2.2-4.2 [facility] Urea nitrogen/Creatinine [Mass ratio] 9.2 mg/mg 10-20 [facility] Laboratory - Hematology and Cell countsOrdered By: Dayana Plasencia on 05-08-2023 Erythrocyte distribution width (RBC) [Entitic vol] 59.5 fL 35.1-43.9 [facility] Erythrocyte distribution width (RBC) [Ratio] 15.9 % 11.6-14.6 [facility] Immature granulocytes/100 WBC (Bld) 0.200 % 0.0-0.9 [facility] Comment on above: IG% - Immature Granu locytes (promyelocytes, myelocytes and metamyelocytes) > 1% indicates that a LEFT SHIFT is Present. MCH (RBC) [Entitic mass] 31.8 pg 27.0-32.0 [facility] Nucleated RBC/100 WBC (Bld) [Ratio] 0 % 0-5 [facility] MCHC Auto (RBC) [Mass/Vol]Or dered By: Dayana Plasencia on 05-08-2023 MCHC (RBC) [Mass/Vol] 31.3 g/dL 32-36 [facility] No Panel InformationOrdered By: Dayana Plasencia on 05-08-2023 Estimated GFR (MDRD) Amer 108 mL/min >60 [facility] Comment on above: GFR Calc Estimated GFR (MDRD) Non-Af Amer 89 mL/min >60 [facility] Comment on above: Non- GFR Calc 31.8 pg 27.0-32.0 [facility] 15.9 % 11.6-14.6 [facility] 59.5 fl 35.1-43.9 [facility] 0.200 % 0.0-0.9 [facility] 0 % 0-5 [facility] 89 mL/min >60 [facility] 108 mL/min >60 [facility] 9.2 RATIO 10-20 [facility] 3.2 g/dL 2.2-4.2 [facility] 70 U/L 45-117 [facility] 25 U/L 16-61 [facility] 31.0 mmol/L 21.0-32.0 [facility] Platelets bldOrdered By: Ari Plasencia on 05-08-2023 Platelets (Bld) [#/Vol] 204 10*3/uL 150-450 [facility] Serum or plasma albumin lenka urement (mass/volume)Ordered By: Dayana Plasencia on 05-08-2023 Albumin [Mass/Vol] 3.6 g/dL 3.2-5.0 [facility] Serum or plasma albumin/glob ulin mass ratioOrdered By: Dayana Plasencia on 05-08-2023 Albumin/Globulin [Mass ratio] 1.1 {ratio} 0.9-2.4 [facility] Serum or plasma calcium lenka urement (mass/volume)Ordered By: Dayana Plasencia on 05-08-2023 Calcium [Mass/Vol] 8.5 mg/dL 8.5-10.1 [facility] Serum or plasma creatinine m easurement (mass/volume)Ordered By: Dayana Plasencia on 05-08-2023 Creatinine [Mass/Vol] 0.87 mg/dL 0.70-1.30 [facility] Comment on above: The validity of the calculated GFR & GFRAA in patients over 70 years has not been determined. Clinical correlation is essential. Serum or plasma urea nitroge n measurement (mass/volume)Ordered By: Dayana Plasencia on 05-08-2023 Urea nitrogen [Mass/Vol] 8 mg/dL 7-18 [facility] Thin prep Papanicolaou smear with manual screeningOrdered By: Dayana Plasencia on 05-08-2023 Thin prep Papanicolaou smear with manual screening 27 U/L 15-37 [facility] Thin prep Papanicolaou smear with manual screening 5 5-15 [facility] Absolute lymphocyte countOrd ered By: Dayana Plasencia on 03-06-2023 Lymphocytes Auto (Unsp spec) [#/Vol] 1.39 10*3/uL 0.83-4.51 [facility] Basophil percentageOrdered B y: Dayana Plasencia on 03-06-2023 Basophil percentage 78 mg/dL 74-106 [facility] Basophil percentage 6.7 g/dL 6.4-8.2 [facility] Basophil percentage 0.40 mg/dL 0.20-1.00 [facility] Basophil percentage 137 mmol/L 136-145 [facility] Basophil percentage 3.5 mmol/L 3.5-5.1 [facility] Basophil percentage 102 mmol/L 98-107 [facility] Basophils (Bld) [#/Vol] 6.7 10*3/uL 4.4-11.0 [facility] Basophils (Bld) [#/Vol] 4.2 10*3/uL 2.0-7.7 [facility] Basophils/100 WBC (Bld) 62.3 % 47-70 [facility] Basophils/100 WBC (Bld) 5.9 % 0-5 [facility] Basophils/100 WBC (Bld) 0.7 % 0-1 [facility] Bilirubin [Mass/Vol] 0.40 mg/dL 0.20-1.00 [facility] Comment on above: For patients on eltr ombopag therapy, use of Dimension [place] TBIL is not recommended. Chloride [Moles/Vol] 102 mmol/L 98-107 [facility] Eosinophils/100 WBC (Bld) 5.9 % 0-5 [facility] Glucose [Mass/Vol] 78 mg/dL 74-106 [facility] Neutrophils (Bld) [#/Vol] 4.2 10*3/uL 2.0-7.7 [facility] Neutrophils/100 WBC (Bld) 62.3 % 47-70 [facility] Potassium [Moles/Vol] 3.5 mmol/L 3.5-5.1 [facility] Protein [Mass/Vol] 6.7 g/dL 6.4-8.2 [facility] Sodium [Moles/Vol] 137 mmol/L 136-145 [facility] WBC (Bld) [#/Vol] 6.7 10*3/uL 4.4-11.0 [facility] Blood erythrocytes count (nu mber/volume)Ordered By: Dayana Plasencia on 03-06-2023 RBC (Bld) [#/Vol] 3.89 10*6/uL 4.6-6.2 [facility] Blood hemoglobin measurement (mass/volume)Ordered By: Dayana Plasencia on 03-06-2023 Hemoglobin (Bld) [Mass/Vol] 12.5 g/dL 13.0-16.5 [facility] Blood lymphocytes/100 leukoc ytesOrdered By: Dayana Plasencia on 03-06-2023 Lymphocytes/100 WBC (Bld) 20.6 % 19-41 [facility] Blood monocytes/100 leukocyt esOrdered By: Dayana Plasencia on 03-06-2023 Monocytes/100 WBC (Bld) 10.2 % 0-10 [facility] Blood platelet mean volumeOr dered By: Dayana Plasencia on 03-06-2023 Platelet mean volume (Bld) [Entitic vol] 9.9 fL 6.2-12.0 [facility] Determination of erythrocyte mean corpuscular volume (MCV)Ordered By: Dayana Plasencia on 03-06-2023 MCV (RBC) [Entitic vol] 102.8 fL 80-94 [facility] Erythrocyte sedimentation ra teOrdered By: Dayana Plasencia on 03-06-2023 ESR (Bld) [Velocity] 29 mm/h 0-20 [facility] Hematocrit Auto (Bld) [Volum e fraction]Ordered By: Dayana Plasencia on 03-06-2023 Hematocrit (Bld) [Volume fraction] 40.0 % 40-54 [facility] Laboratory - Chemistry and C hemistry - challengeOrdered By: Dayana Plasencia on 03-06-2023 ALP [Catalytic activity/Vol] 94 U/L 45-117 [facility] ALT [Catalytic activity/Vol] 22 U/L 16-61 [facility] CO2 [Moles/Vol] 31.0 mmol/L 21.0-32.0 [facility] Globulin (S) [Mass/Vol] 3.5 g/dL 2.2-4.2 [facility] Urea nitrogen/Creatinine [Mass ratio] 9.8 mg/mg 10- [facility] Laboratory - Hematology and Cell countsOrdered By: Dayana Plasencia on 03-06-2023 Erythrocyte distribution width (RBC) [Entitic vol] 50.5 fL 35.1-43.9 [facility] Erythrocyte distribution width (RBC) [Ratio] 13.4 % 11.6-14.6 [facility] Immature granulocytes/100 WBC (Bld) 0.300 % 0.0-0.9 [facility] Comment on above: IG% - Immature Granu locytes (promyelocytes, myelocytes and metamyelocytes) > 1% indicates that a LEFT SHIFT is Present. MCH (RBC) [Entitic mass] 32.1 pg 27.0-32.0 [facility] Nucleated RBC/100 WBC (Bld) [Ratio] 0 % 0-5 [facility] MCHC Auto (RBC) [Mass/Vol]Or dered By: Dayana Plasencia on 03-06-2023 MCHC (RBC) [Mass/Vol] 31.3 g/dL 32-36 [facility] No Panel InformationOrdered By: Dayana Plasencia on 03-06-2023 Estimated GFR (MDRD) Amer 102 mL/min >60 [facility] Comment on above: GFR Calc Estimated GFR (MDRD) Non-Af Amer 84 mL/min >60 [facility] Comment on above: Non- GFR Calc 32.1 pg 27.0-32.0 [facility] 13.4 % 11.6-14.6 [facility] 50.5 fl 35.1-43.9 [facility] 0.300 % 0.0-0.9 [facility] 0 % 0-5 [facility] 84 mL/min >60 [facility] 102 mL/min >60 [facility] 9.8 RATIO 10- [facility] 3.5 g/dL 2.2-4.2 [facility] 94 U/L 45-117 [facility] 22 U/L 16-61 [facility] 31.0 mmol/L 21.0-32.0 [facility] Platelets bldOrdered By: Ari Plasencia on 03-06-2023 Platelets (Bld) [#/Vol] 211 10*3/uL 150-450 [facility] Qualitative QuantiFERON-TB g old in tube testOrdered By: Dayana Plasencia on 03-06-2023 M. tuberculosis tuberculin stim IFN-g Ql (Bld) 0.62 IU/mL . [facility] Serum or plasma C reactive p rotein measurement (mass/volume)Ordered By: Dayana Plasencia on 03-06-2023 CRP [Mass/Vol] 12.90 mg/L 0.0-3.0 [facility] Comment on above: C-Reactive Protein ( CRP) provides useful information for thediagnosis, therapy and monitoring of inflammatory processesand associated diseases. For the evaluation of Relative Riskfor Cardiovascular Disease, a High Sensitivity CRP (HSCRP)should be ordered. Serum or plasma albumin lenka urement (mass/volume)Ordered By: Dayana Plasencia on 03-06-2023 Albumin [Mass/Vol] 3.2 g/dL 3.2-5.0 [facility] Serum or plasma albumin/glob ulin mass ratioOrdered By: Dayana Plasencia on 03-06-2023 Albumin/Globulin [Mass ratio] 0.9 {ratio} 0.9-2.4 [facility] Serum or plasma calcium lenka urement (mass/volume)Ordered By: Dayana Plasencia on 03-06-2023 Calcium [Mass/Vol] 8.7 mg/dL 8.5-10.1 [facility] Serum or plasma creatinine m easurement (mass/volume)Ordered By: Dayana Plasencia on 03-06-2023 Creatinine [Mass/Vol] 0.92 mg/dL 0.70-1.30 [facility] Comment on above: The validity of the calculated GFR & GFRAA in patients over 70 years has not been determined. Clinical correlation is essential. Serum or plasma urea nitroge n measurement (mass/volume)Ordered By: Dayana Plasencia on 03-06-2023 Urea nitrogen [Mass/Vol] 9 mg/dL 7-18 [facility] Thin prep Papanicolaou smear with manual screeningOrdered By: Dayana Plasencia on 03-06-2023 Thin prep Papanicolaou smear with manual screening 18 U/L 15-37 [facility] Thin prep Papanicolaou smear with manual screening 4 5-15 [facility] Thin prep Papanicolaou smear with manual screening Comment . [facility] Comment on above: QuantiFERON-TB Gold Plus is a qualitative indirect test forM tuberculosis infection (including disease) and isintended for use in conjunction with risk assessment,radiography, and other medical and diagnostic evaluations.The QuantiFERON-TB Gold Plus result is determined bysubtracting the Nil value from either TB antigen (Ag)value. The Mitogen tube serves as a control for the test. Thin prep Papanicolaou smear with manual screening 0.70 IU/mL . [facility] Thin prep Papanicolaou smear with manual screening 0.60 IU/mL . [facility] Thin prep Papanicolaou smear with manual screening > 10.00 IU/mL . [facility] Thin prep Papanicolaou smear with manual screening Negative Negative [facility] Comment on above: No response to M tub erculosis antigens detected.Infection with M tuberculosis is unlikely, but high riskindividuals should be considered for additional testing(ATS/IDSA/CDC Clinical Practice Guidelines, 2017). Thereference range is an Antigen minus Nil result of <0.35IU/mL.The specimen received for QuantiFERON testing was incubatedby the ordering institution. Specific procedures outlinedin our Directory of Services and in the package insert forthe QuantiFERON Gold (In Tube) test must be followed toenable for proper stimulation of cells for the productionof interferon gamma. Chemiluminescence immunoassaymethodologyPerformed at: [facility] [id number] Director: Adonay Tucker PhD, Phone: [phone] Gram stain for investigation of transfusion reactionOrdered By: Yogesh Lebron on 01-24-2023 Microscopic observation Gram stain Nom (Unsp spec) [facility] Microscopic observation Gram stain Nom (Unsp spec) [facility] Microbial respiratory cultur eOrdered By: Yogesh Lebron on 01-24-2023 Bacteria identified Respiratory culture Nom (Unsp spec) or Staphylococcus aureus isolated. [facility] Bacteria identified Respiratory culture Nom (Unsp spec) or Staphylococcus aureus isolated. [facility] Absolute lymphocyte countOrd ered By: Yogesh Lebron on 01-23-2023 Lymphocytes Auto (Unsp spec) [#/Vol] 0.89 10*3/uL 0.83-4.51 [facility] Basophil percentageOrdered B y: Yogesh Lebron on 01-23-2023 Basophil percentage 114 mg/dL 74-106 [facility] Basophil percentage 136 mmol/L 136-145 [facility] Basophil percentage 4.2 mmol/L 3.5-5.1 [facility] Basophil percentage 102 mmol/L 98-107 [facility] Basophils (Bld) [#/Vol] 7.8 10*3/uL 4.4-11.0 [facility] Basophils (Bld) [#/Vol] 5.6 10*3/uL 2.0-7.7 [facility] Basophils/100 WBC (Bld) 72.2 % 47-70 [facility] Basophils/100 WBC (Bld) 3.9 % 0-5 [facility] Basophils/100 WBC (Bld) 0.5 % 0-1 [facility] Chloride [Moles/Vol] 102 mmol/L 98-107 [facility] Eosinophils/100 WBC (Bld) 3.9 % 0-5 [facility] Glucose [Mass/Vol] 114 mg/dL 74-106 [facility] Comment on above: Fasting Glucose resu lt from 100 to 125 mg/dL suggests IMPAIRED HOMEOSTASIS per A.D.A. criteria. Neutrophils (Bld) [#/Vol] 5.6 10*3/uL 2.0-7.7 [facility] Neutrophils/100 WBC (Bld) 72.2 % 47-70 [facility] Potassium [Moles/Vol] 4.2 mmol/L 3.5-5.1 [facility] Sodium [Moles/Vol] 136 mmol/L 136-145 [facility] WBC (Bld) [#/Vol] 7.8 10*3/uL 4.4-11.0 [facility] Blood erythrocytes count (nu mber/volume)Ordered By: Yogesh Lebron on 01-23-2023 RBC (Bld) [#/Vol] 3.65 10*6/uL 4.6-6.2 [facility] Blood hemoglobin measurement (mass/volume)Ordered By: Yogesh Lebron on 01-23-2023 Hemoglobin (Bld) [Mass/Vol] 11.6 g/dL 13.0-16.5 [facility] Blood lymphocytes/100 leukoc ytesOrdered By: Yogesh Lebron on 01-23-2023 Lymphocytes/100 WBC (Bld) 11.5 % 19-41 [facility] Blood manual differential co mment interpretation (narrative result)Ordered By: Yogesh Lebron on 01-23-2023 Manual differential comment Hiren (Bld) [Interp] See comment [facility] Comment on above: 1+ ANISOCYTOSIS Blood monocytes/100 leukocyt esOrdered By: Yogesh Lebron on 01-23-2023 Monocytes/100 WBC (Bld) 11.6 % 0-10 [facility] Blood platelet mean volumeOr dered By: Yogesh Lebron on 01-23-2023 Platelet mean volume (Bld) [Entitic vol] 9.3 fL 6.2-12.0 [facility] Determination of erythrocyte mean corpuscular volume (MCV)Ordered By: Yogesh Lebron on 01-23-2023 MCV (RBC) [Entitic vol] 102.5 fL 80-94 [facility] Hematocrit Auto (Bld) [Volum e fraction]Ordered By: Yogesh Bernardino on 01-23-2023 Hematocrit (Bld) [Volume fraction] 37.4 % 40-54 [facility] Laboratory - Chemistry and C hemistry - challengeOrdered By: Yogesh Lebron on 01-23-2023 CO2 [Moles/Vol] 31.0 mmol/L 21.0-32.0 [facility] Urea nitrogen/Creatinine [Mass ratio] 42.5 mg/mg 10-20 [facility] Laboratory - Hematology and Cell countsOrdered By: Yogesh Lebron on 01-23-2023 Erythrocyte distribution width (RBC) [Entitic vol] 78.0 fL 35.1-43.9 [facility] Erythrocyte distribution width (RBC) [Ratio] 20.0 % 11.6-14.6 [facility] Immature granulocytes/100 WBC (Bld) 0.300 % 0.0-0.9 [facility] Comment on above: IG% - Immature Granu locytes (promyelocytes, myelocytes and metamyelocytes) > 1% indicates that a LEFT SHIFT is Present. MCH (RBC) [Entitic mass] 31.8 pg 27.0-32.0 [facility] Nucleated RBC/100 WBC (Bld) [Ratio] 0 % 0-5 [facility] MCHC Auto (RBC) [Mass/Vol]Or dered By: Yogesh Lebron on 01-23-2023 MCHC (RBC) [Mass/Vol] 31.0 g/dL 32-36 [facility] No Panel InformationOrdered By: Yogesh Lebron on 01-23-2023 Estimated Creatinine Clearance Calc 43.58 ml/min [facility] Estimated GFR (MDRD) Amer 124 mL/min >60 [facility] Comment on above: GFR Calc Estimated GFR (MDRD) Non-Af Amer 102 mL/min >60 [facility] Comment on above: Non- GFR Calc 31.8 pg 27.0-32.0 [facility] 20.0 % 11.6-14.6 [facility] 78.0 fl 35.1-43.9 [facility] 0.300 % 0.0-0.9 [facility] 0 % 0-5 [facility] 102 mL/min >60 [facility] 124 mL/min >60 [facility] 43.58 ml/min [facility] 42.5 RATIO 10-20 [facility] 31.0 mmol/L 21.0-32.0 [facility] Platelets bldOrdered By: Yogesh Lebron on 01-23-2023 Platelets (Bld) [#/Vol] 216 10*3/uL 150-450 [facility] Serum or plasma calcium lenka urement (mass/volume)Ordered By: Yogesh Lebron on 01-23-2023 Calcium [Mass/Vol] 8.6 mg/dL 8.5-10.1 [facility] Serum or plasma creatinine m easurement (mass/volume)Ordered By: Yogesh Lebron on 01-23-2023 Creatinine [Mass/Vol] 0.78 mg/dL 0.70-1.30 [facility] Comment on above: The validity of the calculated GFR & GFRAA in patients over 70 years has not been determined. Clinical correlation is essential. Serum or plasma urea nitroge n measurement (mass/volume)Ordered By: Yogesh Lebron on 01-23-2023 Urea nitrogen [Mass/Vol] 33 mg/dL 7-18 [facility] Thin prep Papanicolaou smear with manual screeningOrdered By: Yogesh Lebron on 01-23-2023 Thin prep Papanicolaou smear with manual screening 3 5-15 [facility] Absolute lymphocyte countOrd ered By: Yogesh Lebron on 01-21-2023 Lymphocytes Auto (Unsp spec) [#/Vol] 2.04 10*3/uL 0.83-4.51 [facility] Basophil percentageOrdered B y: Yogesh Lebron on 01-21-2023 Basophil percentage 100 mg/dL 74-106 [facility] Basophil percentage 138 mmol/L 136-145 [facility] Basophil percentage 4.0 mmol/L 3.5-5.1 [facility] Basophil percentage 101 mmol/L 98-107 [facility] Basophils (Bld) [#/Vol] 6.2 10*3/uL 4.4-11.0 [facility] Basophils (Bld) [#/Vol] 2.8 10*3/uL 2.0-7.7 [facility] Basophils/100 WBC (Bld) 45.7 % 47-70 [facility] Basophils/100 WBC (Bld) 6.3 % 0-5 [facility] Basophils/100 WBC (Bld) 1.1 % 0-1 [facility] Blood erythrocytes count (nu mber/volume)Ordered By: Yogesh Lebron on 01-21-2023 RBC (Bld) [#/Vol] 3.38 10*6/uL 4.6-6.2 [facility] Blood hemoglobin measurement (mass/volume)Ordered By: Yogesh Lebron on 01-21-2023 Hemoglobin (Bld) [Mass/Vol] 10.7 g/dL 13.0-16.5 [facility] Blood lymphocytes/100 leukoc ytesOrdered By: Yogesh Lebron on 01-21-2023 Lymphocytes/100 WBC (Bld) 33.0 % 19-41 [facility] Blood monocytes/100 leukocyt esOrdered By: Yogesh Lebron on 01-21-2023 Monocytes/100 WBC (Bld) 13.7 % 0-10 [facility] Blood platelet mean volumeOr dered By: Yogesh Lebron on 01-21-2023 Platelet mean volume (Bld) [Entitic vol] 9.6 fL 6.2-12.0 [facility] Determination of erythrocyte mean corpuscular volume (MCV)Ordered By: Yogesh Lebron on 01-21-2023 MCV (RBC) [Entitic vol] 99.4 fL 80-94 [facility] Hematocrit Auto (Bld) [Volum e fraction]Ordered By: Yogesh Lebron on 01-21-2023 Hematocrit (Bld) [Volume fraction] 33.6 % 40-54 [facility] Laboratory - Hematology and Cell countsOrdered By: Yogesh Lebron 01-21-2023 Anisocytosis Ql (Bld) 2+ [facility] MCHC Auto (RBC) [Mass/Vol]Or dered By: Yogesh Lebron on 01-21-2023 MCHC (RBC) [Mass/Vol] 31.8 g/dL 32-36 [facility] Macrocytes detectionOrdered By: Yogesh Lebron 01-21-2023 Macrocytes Ql (Bld) 1+ [facility] No Panel InformationOrdered By: Yogesh Lebron 01-21-2023 31.7 pg 27.0-32.0 [facility] 20.6 % 11.6-14.6 [facility] 77.1 fl 35.1-43.9 [facility] 0.200 % 0.0-0.9 [facility] 0 % 0-5 [facility] 115 mL/min >60 [facility] 140 mL/min >60 [facility] 43.58 ml/min [facility] 50.0 RATIO 10-20 [facility] 31.0 mmol/L 21.0-32.0 [facility] 2+ [facility] Platelets bldOrdered By: Yogesh Lebron 01-21-2023 Platelets (Bld) [#/Vol] 232 10*3/uL 150-450 [facility] Serum or plasma calcium lenka urement (mass/volume)Ordered By: Yogesh Lebron on 01-21-2023 Calcium [Mass/Vol] 8.6 mg/dL 8.5-10.1 [facility] Serum or plasma creatinine m easurement (mass/volume)Ordered By: Yogesh Lebron on 01-21-2023 Creatinine [Mass/Vol] 0.70 mg/dL 0.70-1.30 [facility] Serum or plasma urea nitroge n measurement (mass/volume)Ordered By: Yogesh Lebron on 01-21-2023 Urea nitrogen [Mass/Vol] 35 mg/dL 7-18 [facility] Thin prep Papanicolaou smear with manual screeningOrdered By: Yogesh Lebron on 01-21-2023 Thin prep Papanicolaou smear with manual screening 6 5-15 [facility] Thin prep Papanicolaou smear with manual screening 1+ [facility] Blood manual differential co mment interpretation (narrative result)Ordered By: Yogesh Lebron on 01-14-2023 Manual differential comment Hiren (Bld) [Interp] SCANNED [facility] Macrocytes detectionOrdered By: Yogesh Lebron on 01-14-2023 Macrocytes Ql (Bld) 1+ [facility] No Panel InformationOrdered By: Yogesh Lebron on 01-14-2023 1+ [facility] Shavon rods detectionOrdered B y: Yogesh Lebron on 01-07-2023 Shavon rods LM Ql (Bld) 5.9 [facility] Toxic leukocyte granulation detectionOrdered By: Yogesh Lebron on 01-07-2023 Toxic granules LM Ql (Bld) 5.9 [facility] Absolute lymphocyte countOrd ered By: Melva Wheeler on 01-06-2023 Lymphocytes Auto (Unsp spec) [#/Vol] 0.93 10*3/uL 0.83-4.51 [facility] Basophil percentageOrdered B y: Melva Wheeler on 01-06-2023 Basophil percentage 94 mg/dL 74-106 [facility] Basophil percentage 3.7 mg/dL 2.5-4.9 [facility] Basophil percentage 139 mmol/L 136-145 [facility] Basophil percentage 3.6 mmol/L 3.5-5.1 [facility] Basophil percentage 105 mmol/L 98-107 [facility] Basophils (Bld) [#/Vol] 6.6 10*3/uL 4.4-11.0 [facility] Basophils (Bld) [#/Vol] 4.6 10*3/uL 2.0-7.7 [facility] Basophils/100 WBC (Bld) 69.3 % 47-70 [facility] Basophils/100 WBC (Bld) 3.5 % 0-5 [facility] Basophils/100 WBC (Bld) 0.5 % 0-1 [facility] Blood erythrocytes count (nu mber/volume)Ordered By: Melva Wheeler on 01-06-2023 RBC (Bld) [#/Vol] 3.46 10*6/uL 4.6-6.2 [facility] Blood hemoglobin measurement (mass/volume)Ordered By: Melva Wheeler on 01-06-2023 Hemoglobin (Bld) [Mass/Vol] 10.7 g/dL 13.0-16.5 [facility] Blood lymphocytes/100 leukoc ytesOrdered By: Melva Wheeler on 01-06-2023 Lymphocytes/100 WBC (Bld) 14.0 % 19-41 [facility] Blood monocytes/100 leukocyt esOrdered By: Melva Wheeler on 01-06-2023 Monocytes/100 WBC (Bld) 12.5 % 0-10 [facility] Blood platelet mean volumeOr dered By: Melva Wheelre on 01-06-2023 Platelet mean volume (Bld) [Entitic vol] 9.4 fL 6.2-12.0 [facility] Determination of erythrocyte mean corpuscular volume (MCV)Ordered By: Melva Wheeler on 01-06-2023 MCV (RBC) [Entitic vol] 100.0 fL 80-94 [facility] Hematocrit Auto (Bld) [Volum e fraction]Ordered By: Melva Wheeler on 01-06-2023 Hematocrit (Bld) [Volume fraction] 34.6 % 40-54 [facility] MCHC Auto (RBC) [Mass/Vol]Or dered By: Melva Wheeler on 01-06-2023 MCHC (RBC) [Mass/Vol] 30.9 g/dL 32-36 [facility] Macrocytes detectionOrdered By: Melva Wheeler on 01-06-2023 Macrocytes Ql (Bld) 1+ [facility] No Panel InformationOrdered By: Melva Wheeler on 01-06-2023 30.9 pg 27.0-32.0 [facility] 21.9 % 11.6-14.6 [facility] 78.5 fl 35.1-43.9 [facility] 0.200 % 0.0-0.9 [facility] 0 % 0-5 [facility] 2+ [facility] 132 mL/min >60 [facility] 159 mL/min >60 [facility] 41.67 ml/min [facility] 24.0 RATIO 10-20 [facility] 2.2 mg/dL 1.6-2.6 [facility] 32.0 mmol/L 21.0-32.0 [facility] Platelets bldOrdered By: Cristel Wheeler on 01-06-2023 Platelets (Bld) [#/Vol] 156 10*3/uL 150-450 [facility] Serum or plasma calcium lenka urement (mass/volume)Ordered By: Melva Wheeler on 01-06-2023 Calcium [Mass/Vol] 8.1 mg/dL 8.5-10.1 [facility] Serum or plasma creatinine m easurement (mass/volume)Ordered By: Melva Wheeler on 01-06-2023 Creatinine [Mass/Vol] 0.62 mg/dL 0.70-1.30 [facility] Serum or plasma urea nitroge n measurement (mass/volume)Ordered By: Melva Wheeler on 01-06-2023 Urea nitrogen [Mass/Vol] 15 mg/dL 7-18 [facility] Thin prep Papanicolaou smear with manual screeningOrdered By: Melva Wheeler on 01-06-2023 Thin prep Papanicolaou smear with manual screening 2 5-15 [facility] Basophil percentageOrdered B y: Mi White on 01-05-2023 Basophil percentage 5.2 g/dL 6.4-8.2 [facility] Basophil percentage 0.60 mg/dL 0.20-1.00 [facility] No Panel InformationOrdered By: Mi Gregory on 01-05-2023 2.8 g/dL 2.2-4.2 [facility] 1656 U/L 39-308 [facility] 148 U/L 45-117 [facility] 41 U/L 16-61 [facility] No Panel InformationOrdered By: Melva Wheeler on 01-05-2023 24.0 ng/mL [facility] Serum or plasma albumin lenka urement (mass/volume)Ordered By: Mi Bri on 01-05-2023 Albumin [Mass/Vol] 2.4 g/dL 3.2-5.0 [facility] Serum or plasma albumin/glob ulin mass ratioOrdered By: Mi Gregory on 01-05-2023 Albumin/Globulin [Mass ratio] 0.9 {ratio} 0.9-2.4 [facility] Thin prep Papanicolaou smear with manual screeningOrdered By: Mi Bri on 01-05-2023 Thin prep Papanicolaou smear with manual screening 76 U/L 15-37 [facility] Absolute lymphocyte countOrd ered By: Samm Womack on 01-04-2023 Lymphocytes Auto (Unsp spec) [#/Vol] 0.84 10*3/uL 0.83-4.51 [facility] Basophil percentageOrdered B y: Samm Womack on 01-04-2023 Basophil percentage 0 SEEN /hpf 0-5 [facility] Basophil percentage 112 mg/dL 74-106 [facility] Basophil percentage 6.1 g/dL 6.4-8.2 [facility] Basophil percentage 0.90 mg/dL 0.20-1.00 [facility] Basophil percentage 137 mmol/L 136-145 [facility] Basophil percentage 3.7 mmol/L 3.5-5.1 [facility] Basophil percentage 100 mmol/L 98-107 [facility] Basophils (Bld) [#/Vol] 8.9 10*3/uL 4.4-11.0 [facility] Basophils (Bld) [#/Vol] 7.0 10*3/uL 2.0-7.7 [facility] Basophils/100 WBC (Bld) 78.7 % 47-70 [facility] Basophils/100 WBC (Bld) 0.3 % 0-5 [facility] Basophils/100 WBC (Bld) 0.2 % 0-1 [facility] Bilirubin Test strip Ql (U)O rdered By: Samm Womack on 01-04-2023 Bilirubin Ql (U) Negative Negative [facility] Blood erythrocytes count (nu mber/volume)Ordered By: Samm Womack on 01-04-2023 RBC (Bld) [#/Vol] 4.17 10*6/uL 4.6-6.2 [facility] Blood hemoglobin measurement (mass/volume)Ordered By: Samm Womack on 01-04-2023 Hemoglobin (Bld) [Mass/Vol] 12.9 g/dL 13.0-16.5 [facility] Blood lymphocytes/100 leukoc ytesOrdered By: Samm Womack on 01-04-2023 Lymphocytes/100 WBC (Bld) 9.4 % 19-41 [facility] Blood manual differential co mment interpretation (narrative result)Ordered By: Samm Womack on 01-04-2023 Manual differential comment Hiren (Bld) [Interp] SCANNED [facility] Blood monocytes/100 leukocyt esOrdered By: Samm Womack on 01-04-2023 Monocytes/100 WBC (Bld) 11.0 % 0-10 [facility] Blood platelet mean volumeOr dered By: Samm Womack on 01-04-2023 Platelet mean volume (Bld) [Entitic vol] 8.7 fL 6.2-12.0 [facility] Determination of erythrocyte mean corpuscular volume (MCV)Ordered By: Samm Womack on 01-04-2023 MCV (RBC) [Entitic vol] 95.0 fL 80-94 [facility] Hematocrit Auto (Bld) [Volum e fraction]Ordered By: Samm Womack on 01-04-2023 Hematocrit (Bld) [Volume fraction] 39.6 % 40-54 [facility] Ketones Test strip Ql (U)Ord ered By: Samm Womack on 01-04-2023 Ketones Ql (U) 15 mg/dl Negative [facility] MCHC Auto (RBC) [Mass/Vol]Or dered By: Samm Womack on 01-04-2023 MCHC (RBC) [Mass/Vol] 32.6 g/dL 32-36 [facility] Mucus LM Ql (Urine sed)Order ed By: Samm Womack on 01-04-2023 Mucus Ql (Urine sed) 0 SEEN /hpf [facility] Nitrite Test strip Ql (U)Ord ered By: Samm Womack on 01-04-2023 Nitrite Ql (U) Negative Negative [facility] No Panel InformationOrdered By: Samm Womack on 01-04-2023 60 pg/mL 3.0-78.0 [facility] 30.9 pg 27.0-32.0 [facility] 21.7 % 11.6-14.6 [facility] 75.3 fl 35.1-43.9 [facility] 0.400 % 0.0-0.9 [facility] 0 % 0-5 [facility] 93 mL/min >60 [facility] 112 mL/min >60 [facility] 9.5 RATIO 10-20 [facility] 3.1 g/dL 2.2-4.2 [facility] 2433 U/L 39-308 [facility] 55 pg/mL 3.0-78.0 [facility] 193 U/L 45-117 [facility] 49 U/L 16-61 [facility] 31.0 mmol/L 21.0-32.0 [facility] Platelets bldOrdered By: Donaldo Womack on 01-04-2023 Platelets (Bld) [#/Vol] 176 10*3/uL 150-450 [facility] Protein Test strip Ql (U)Ord ered By: Samm Womack on 01-04-2023 Protein Ql (U) 30 mg/dl Negative [facility] Serum or plasma albumin lenka urement (mass/volume)Ordered By: Samm Womack on 01-04-2023 Albumin [Mass/Vol] 3.0 g/dL 3.2-5.0 [facility] Serum or plasma albumin/glob ulin mass ratioOrdered By: Samm Womack on 01-04-2023 Albumin/Globulin [Mass ratio] 1.0 {ratio} 0.9-2.4 [facility] Serum or plasma calcium lenka urement (mass/volume)Ordered By: Samm Womack on 01-04-2023 Calcium [Mass/Vol] 8.6 mg/dL 8.5-10.1 [facility] Serum or plasma creatinine m easurement (mass/volume)Ordered By: Samm Womack on 01-04-2023 Creatinine [Mass/Vol] 0.84 mg/dL 0.70-1.30 [facility] Serum or plasma urea nitroge n measurement (mass/volume)Ordered By: Samm Womack on 01-04-2023 Urea nitrogen [Mass/Vol] 8 mg/dL 7-18 [facility] Squamous epithelial cells de tection in urine sediment by light microscopyOrdered By: Samm Womack on 01-04-2023 Epithelial cells.squamous LM Ql (Urine sed) 0 SEEN /hpf 0-5 [facility] Thin prep Papanicolaou smear with manual screeningOrdered By: Samm Womack on 01-04-2023 Thin prep Papanicolaou smear with manual screening 101 U/L 15-37 [facility] Thin prep Papanicolaou smear with manual screening 6 5-15 [facility] Urine blood detectionOrdered By: Samm Womack on 01-04-2023 RBC Ql (U) Negative Negative [facility] RBC Ql (U) 0 SEEN /hpf 0-5 [facility] Urine clarityOrdered By: Donaldo Womack on 01-04-2023 Clarity (U) Clear Clear [facility] Urine color determinationOrd ered By: Samm Womack on 01-04-2023 Color (U) Yellow Yellow [facility] Urine glucose detectionOrder ed By: Samm Womack on 01-04-2023 Glucose Ql (U) Normal mg/dl Normal [facility] Urine leukocyte esterase det ection by dipstickOrdered By: Samm Womack on 01-04-2023 Leukocyte esterase Test strip Ql (U) Negative Negative [facility] Urine pHOrdered By: Samm ricks on 01-04-2023 pH (U) 8.0 [pH] 5.0 - 8.0 [facility] Urine sediment bacteria coun t by microscopy (number/high power field)Ordered By: Samm Womack on 01-04-2023 Bacteria LM.HPF (Urine sed) [#/Area] 0 /[HPF] None Seen [facility] Urine specific gravity measu rementOrdered By: Samm Womack on 01-04-2023 Specific gravity (U) [Rel density] 1.010 1.002-1.03 0 [facility] Urobilinogen Auto test strip Ql (U)Ordered By: Samm Womack on 01-04-2023 Urobilinogen Ql (U) Normal mg/dl Normal [facility] Basophil percentageOrdered B y: Salvatore Leonardo on 12-29-2022 Basophil percentage 104 mg/dL 74-106 [facility] Basophil percentage 131 mmol/L 136-145 [facility] Basophil percentage 3.2 mmol/L 3.5-5.1 [facility] Basophil percentage 92 mmol/L 98-107 [facility] Basophils (Bld) [#/Vol] 8.3 10*3/uL 4.4-11.0 [facility] Blood erythrocytes count (nu mber/volume)Ordered By: Salvatore Leonardo on 12-29-2022 RBC (Bld) [#/Vol] 3.99 10*6/uL 4.6-6.2 [facility] Blood hemoglobin measurement (mass/volume)Ordered By: Salvatore Leonardo on 12-29-2022 Hemoglobin (Bld) [Mass/Vol] 12.6 g/dL 13.0-16.5 [facility] Blood manual differential co mment interpretation (narrative result)Ordered By: Salvatore Leonardo on 12-29-2022 Manual differential comment Hiren (Bld) [Interp] See comment [facility] Blood platelet mean volumeOr dered By: Salvatore Leonardo on 12-29-2022 Platelet mean volume (Bld) [Entitic vol] 9.6 fL 6.2-12.0 [facility] Determination of erythrocyte mean corpuscular volume (MCV)Ordered By: Salvatore Leonardo on 12-29-2022 MCV (RBC) [Entitic vol] 94.0 fL 80-94 [facility] Hematocrit Auto (Bld) [Volum e fraction]Ordered By: Salvatore Leonardo on 12-29-2022 Hematocrit (Bld) [Volume fraction] 37.5 % 40-54 [facility] MCHC Auto (RBC) [Mass/Vol]Or dered By: Salvatore Leonardo on 12-29-2022 MCHC (RBC) [Mass/Vol] 33.6 g/dL 32-36 [facility] No Panel InformationOrdered By: Salvatore Leonardo on 12-29-2022 31.6 pg 27.0-32.0 [facility] 22.3 % 11.6-14.6 [facility] 74.9 fl 35.1-43.9 [facility] 100 mL/min >60 [facility] 121 mL/min >60 [facility] 12.6 RATIO 10-20 [facility] 34.0 mmol/L 21.0-32.0 [facility] Platelets bldOrdered By: Catrachito Leonardo on 12-29-2022 Platelets (Bld) [#/Vol] 193 10*3/uL 150-450 [facility] Serum or plasma calcium lenka urement (mass/volume)Ordered By: Salvatore Leonardo on 12-29-2022 Calcium [Mass/Vol] 8.9 mg/dL 8.5-10.1 [facility] Serum or plasma creatinine m easurement (mass/volume)Ordered By: Salvatore Leonardo on 12-29-2022 Creatinine [Mass/Vol] 0.80 mg/dL 0.70-1.30 [facility] Serum or plasma urea nitroge n measurement (mass/volume)Ordered By: Salvatore Leonardo on 12-29-2022 Urea nitrogen [Mass/Vol] 10 mg/dL 7-18 [facility] Thin prep Papanicolaou smear with manual screeningOrdered By: Salvatore Leonardo on 12-29-2022 Thin prep Papanicolaou smear with manual screening 5 5-15 [facility] XR RIBS/CHEST 3V AP RIB/OBLS /CXR RIGHTon 12-27-2022 [facility] XR Ribs - right Views and est PAon 12-27-2022 IMPRESSION: MINIMALLY DISPLACED RIGHT-SIDED RIB FRACTURES. 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: [facility] Transcribe Date/Time: Dec 27 2022 7:06P Dictated by : THIAGO PISANO MD This examination was interpreted and the report reviewed and electronically signed by: THIAGO PISANO MD on Dec 27 2022 7:12PM [facility] DIVISION OF RADIOLOGY * * *Final Report* * * DATE OF EXAM: Dec 27 2022 6:38PM WOX [id number] - XR RIB/CHST 3V AP RIB/OBL/CHST R / PROCEDURE REASON: Rib pain on right side * * * * Physician Interpretation * * * * Examination: XR RIB/CHST 3V AP RIB/OBL/CHST R History: Rib pain on right side Pain 10-12 lateral right Technique: XR RIB/CHST 3V AP RIB/OBL/CHST R Comparison: 08/12/2020 RESULT: Fracture of the lateral right sixth ,seventh and eighth ribs. Small amount of fluid and atelectasis at both lung bases. No pneumothorax. Stable cardiac silhouette Significant degenerative change involving both shoulders. Postoperative change right humeral head. DIVISION OF RADIOLOGY Provider, Michelle [employer] [employer] - 12/27/2022 * * *Final Report* * * DATE OF EXAM: Dec 27 2022 6:38PM WOX [id number] - XR RIB/CHST 3V AP RIB/OBL/CHST R / PROCEDURE REASON: Rib pain on right side * * * * Physician Interpretation * * * * Examination: XR RIB/CHST 3V AP RIB/OBL/CHST R History: Rib pain on right side Pain 10-12 lateral right Technique: XR RIB/CHST 3V AP RIB/OBL/CHST R Comparison: 08/12/2020 RESULT: Fracture of the lateral right sixth ,seventh and eighth ribs. Small amount of fluid and atelectasis at both lung bases. No pneumothorax. Stable cardiac silhouette Significant degenerative change involving both shoulders. Postoperative change right humeral head. IMPRESSION IMPRESSION: MINIMALLY DISPLACED RIGHT-SIDED RIB FRACTURES. 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: [facility] Transcribe Date/Time: Dec 27 2022 7:06P Dictated by : THIAGO PISANO MD This examination was interpreted and the report reviewed and electronically signed by: THIAGO PISANO MD on Dec 27 2022 7:12PM EST [facility] Radiology Study observation (narrative) [facility] XR Ribs - right Views and Ch est PAOrdered By: [facility] Provider on 12-27-2022 [facility] Absolute lymphocyte countOrd ered By: Vlad Alfaro on 11-28-2022 Lymphocytes Auto (Unsp spec) [#/Vol] 0.53 10*3/uL 0.83-4.51 [facility] Basophil percentageOrdered B y: Salvatore Leonardo on 11-28-2022 Basophil percentage 108 mg/dL 74-106 [facility] Basophil percentage 137 mmol/L 136-145 [facility] Basophil percentage 4.3 mmol/L 3.5-5.1 [facility] Basophil percentage 103 mmol/L 98-107 [facility] Basophil percentageOrdered B y: Vlad Alfaro on 11-28-2022 Basophils (Bld) [#/Vol] 6.6 10*3/uL 4.4-11.0 [facility] Basophils (Bld) [#/Vol] 5.6 10*3/uL 2.0-7.7 [facility] Basophils/100 WBC (Bld) 85.3 % 47-70 [facility] Basophils/100 WBC (Bld) 0.2 % 0-1 [facility] Basophil percentageOrdered B y: Catalino Short on 11-28-2022 Basophil percentage 6.7 g/dL 6.4-8.2 [facility] Basophil percentage 0.60 mg/dL 0.20-1.00 [facility] Basophil percentage 261 U/L 87-241 [facility] Blood erythrocytes count (nu mber/volume)Ordered By: Vlad Alfaro on 11-28-2022 RBC (Bld) [#/Vol] 4.04 10*6/uL 4.6-6.2 [facility] Blood hemoglobin measurement (mass/volume)Ordered By: Vlad Alfaro on 11-28-2022 Hemoglobin (Bld) [Mass/Vol] 11.8 g/dL 13.0-16.5 [facility] Blood lymphocytes/100 leukoc ytesOrdered By: Vlad Alfaro on 11-28-2022 Lymphocytes/100 WBC (Bld) 8.0 % 19-41 [facility] Blood manual differential co mment interpretation (narrative result)Ordered By: Vlad Alfaro on 11-28-2022 Manual differential comment Hiren (Bld) [Interp] See comment [facility] Blood monocytes/100 leukocyt esOrdered By: Vlad Alfaro on 11-28-2022 Monocytes/100 WBC (Bld) 5.8 % 0-10 [facility] Blood platelet mean volumeOr dered By: Vlad Alfaro on 11-28-2022 Platelet mean volume (Bld) [Entitic vol] 9.3 fL 6.2-12.0 [facility] Determination of erythrocyte mean corpuscular volume (MCV)Ordered By: Vlad Alfaro on 11-28-2022 MCV (RBC) [Entitic vol] 95.3 fL 80-94 [facility] Erythrocyte sedimentation ra teOrdered By: Vlad Alfaro on 11-28-2022 ESR (Bld) [Velocity] 18 mm/h 0-20 [facility] Hematocrit Auto (Bld) [Volum e fraction]Ordered By: Vlad Alfaro on 11-28-2022 Hematocrit (Bld) [Volume fraction] 38.5 % 40-54 [facility] Iron measurement (mass/mass) Ordered By: Catalino Short on 11-28-2022 Iron (Unsp spec) [Mass/Mass] 93 ug/dL 65-175 [facility] MCHC Auto (RBC) [Mass/Vol]Or dered By: Vlad Alfaro on 11-28-2022 MCHC (RBC) [Mass/Vol] 30.6 g/dL 32-36 [facility] No Panel InformationOrdered By: Vlad Alfaro on 11-28-2022 29.2 pg 27.0-32.0 [facility] 25.6 % 11.6-14.6 [facility] 86.6 fl 35.1-43.9 [facility] 0.500 % 0.0-0.9 [facility] 0 % 0-5 [facility] Negative Negative [facility] No Panel InformationOrdered By: Salvatore Leonardo on 11-28-2022 88 mL/min >60 [facility] 107 mL/min >60 [facility] 14.7 RATIO 10-20 [facility] 29.0 mmol/L 21.0-32.0 [facility] No Panel InformationOrdered By: Catalino Short on 11-28-2022 3.1 g/dL 2.2-4.2 [facility] 127 U/L 45-117 [facility] 21 U/L 16-61 [facility] 247 ug/dL 250-450 [facility] Platelets bldOrdered By: Christine Alfaro on 11-28-2022 Platelets (Bld) [#/Vol] 192 10*3/uL 150-450 [facility] Serum cyclic citrullinated p eptide IgG antibody assay (units/volume)Ordered By: Vlad Alfaro on 11-28-2022 Cyclic citrullinated peptide IgG Qn 6 units 0-19 [facility] Serum or plasma C reactive p rotein measurement (mass/volume)Ordered By: Vlad Alfaro on 11-28-2022 CRP [Mass/Vol] 6.82 mg/L 0.0-3.0 [facility] Serum or plasma albumin lenka urement (mass/volume)Ordered By: Catalino Short on 11-28-2022 Albumin [Mass/Vol] 3.6 g/dL 3.2-5.0 [facility] Serum or plasma albumin/glob ulin mass ratioOrdered By: Catalino Short on 11-28-2022 Albumin/Globulin [Mass ratio] 1.2 {ratio} 0.9-2.4 [facility] Serum or plasma calcium lenka urement (mass/volume)Ordered By: Salvatore Leonardo on 11-28-2022 Calcium [Mass/Vol] 8.6 mg/dL 8.5-10.1 [facility] Serum or plasma creatinine m easurement (mass/volume)Ordered By: Salvatore Leonardo on 11-28-2022 Creatinine [Mass/Vol] 0.88 mg/dL 0.70-1.30 [facility] Serum or plasma ferritin aditya surement (mass/volume)Ordered By: Catalino Short on 11-28-2022 Ferritin [Mass/Vol] 1800 ng/mL 26-388 [facility] Serum or plasma iron saturat ion measurement (mass fraction)Ordered By: Catalino Short on 11-28-2022 Iron saturation [Mass fraction] 37.7 % 15.0-55.0 [facility] Serum or plasma urea nitroge n measurement (mass/volume)Ordered By: Salvatore Leonardo on 11-28-2022 Urea nitrogen [Mass/Vol] 13 mg/dL 7-18 [facility] Serum rheumatoid factor dete ctionOrdered By: Vlad Alfaro on 11-28-2022 Rheumatoid factor Ql (S) 16.0 IU/mL <15 [facility] Thin prep Papanicolaou smear with manual screeningOrdered By: Salvatore Leonardo on 11-28-2022 Thin prep Papanicolaou smear with manual screening 5 5-15 [facility] Thin prep Papanicolaou smear with manual screeningOrdered By: Vlad Alfaro on 11-28-2022 Thin prep Papanicolaou smear with manual screening Negative Negative [facility] Thin prep Papanicolaou smear with manual screeningOrdered By: Catalino Short on 11-28-2022 Thin prep Papanicolaou smear with manual screening 22 U/L 15-37 [facility] Absolute lymphocyte countOrd ered By: Dr. Hazel on 11-01-2022 Lymphocytes Auto (Unsp spec) [#/Vol] 0.41 10*3/uL 0.83-4.51 [facility] Basophil percentageOrdered B y: Dr. Hazel on 11-01-2022 Basophil percentage 106 mg/dL 74-106 [facility] Basophil percentage 134 mmol/L 136-145 [facility] Basophil percentage 3.9 mmol/L 3.5-5.1 [facility] Basophil percentage 100 mmol/L 98-107 [facility] Basophils (Bld) [#/Vol] 6.3 10*3/uL 4.4-11.0 [facility] Basophils (Bld) [#/Vol] 5.6 10*3/uL 2.0-7.7 [facility] Basophils/100 WBC (Bld) 89.1 % 47-70 [facility] Basophils/100 WBC (Bld) 0.3 % 0-1 [facility] Blood erythrocytes count (nu mber/volume)Ordered By: Dr. Hazel on 11-01-2022 RBC (Bld) [#/Vol] 4.01 10*6/uL 4.6-6.2 [facility] Blood hemoglobin measurement (mass/volume)Ordered By: Dr. Hazel on 11-01-2022 Hemoglobin (Bld) [Mass/Vol] 10.9 g/dL 13.0-16.5 [facility] Blood lymphocytes/100 leukoc ytesOrdered By: Dr. Hazel on 11-01-2022 Lymphocytes/100 WBC (Bld) 6.5 % 19-41 [facility] Blood manual differential co mment interpretation (narrative result)Ordered By: Dr. Hazel on 11-01-2022 Manual differential comment Hiren (Bld) [Interp] SCANNED [facility] Blood monocytes/100 leukocyt esOrdered By: Dr. Hazel on 11-01-2022 Monocytes/100 WBC (Bld) 3.3 % 0-10 [facility] Blood platelet mean volumeOr dered By: Dr. Hazel on 11-01-2022 Platelet mean volume (Bld) [Entitic vol] 9.9 fL 6.2-12.0 [facility] Blood polychromasia detectio n by light microscopyOrdered By: Dr. Hazel on 11-01-2022 Polychromasia LM Ql (Bld) [facility] Determination of erythrocyte mean corpuscular volume (MCV)Ordered By: Dr. Hazel on 11-01-2022 MCV (RBC) [Entitic vol] 91.8 fL 80-94 [facility] Hematocrit Auto (Bld) [Volum e fraction]Ordered By: Dr. Hazel on 11-01-2022 Hematocrit (Bld) [Volume fraction] 36.8 % 40-54 [facility] MCHC Auto (RBC) [Mass/Vol]Or dered By: Dr. Hazel on 11-01-2022 MCHC (RBC) [Mass/Vol] 29.6 g/dL 32-36 [facility] Macrocytes detectionOrdered By: Dr. Hazel on 11-01-2022 Macrocytes Ql (Bld) 1+ [facility] No Panel InformationOrdered By: Dr. Hazel on 11-01-2022 27.2 pg 27.0-32.0 [facility] 20.8 % 11.6-14.6 [facility] 67.5 fl 35.1-43.9 [facility] 0.500 % 0.0-0.9 [facility] 0 % 0-5 [facility] 2+ [facility] 82 mL/min >60 [facility] 100 mL/min >60 [facility] 16.0 RATIO 10-20 [facility] 31.0 mmol/L 21.0-32.0 [facility] 1.78 uIU/mL 0.358-3.74 [facility] Ovalocyte detectionOrdered B y: Dr. Hazel on 11-01-2022 Ovalocytes LM Ql (Bld) [facility] Platelets bldOrdered By: Dr. Hazel on 11-01-2022 Platelets (Bld) [#/Vol] 293 10*3/uL 150-450 [facility] Serum or plasma calcium lenka urement (mass/volume)Ordered By: Dr. Hazel on 11-01-2022 Calcium [Mass/Vol] 9.0 mg/dL 8.5-10.1 [facility] Serum or plasma creatinine m easurement (mass/volume)Ordered By: Dr. Hazel on 11-01-2022 Creatinine [Mass/Vol] 0.94 mg/dL 0.70-1.30 [facility] Serum or plasma urea nitroge n measurement (mass/volume)Ordered By: Dr. Hazel on 11-01-2022 Urea nitrogen [Mass/Vol] 15 mg/dL 7-18 [facility] Thin prep Papanicolaou smear with manual screeningOrdered By: Dr. Hazel on 11-01-2022 Thin prep Papanicolaou smear with manual screening 1+ [facility] Thin prep Papanicolaou smear with manual screening 3 5-15 [facility] Absolute lymphocyte countOrd ered By: Dr. Ayers on 10-22-2022 Lymphocytes Auto (Unsp spec) [#/Vol] 1.71 10*3/uL 0.83-4.51 [facility] Basophil percentageOrdered B y: Dr. Ayers on 10-22-2022 Basophils (Bld) [#/Vol] 7.3 10*3/uL 4.4-11.0 [facility] Basophils (Bld) [#/Vol] 4.3 10*3/uL 2.0-7.7 [facility] Basophils/100 WBC (Bld) 58.9 % 47-70 [facility] Basophils/100 WBC (Bld) 2.9 % 0-5 [facility] Basophils/100 WBC (Bld) 0.8 % 0-1 [facility] Blood erythrocytes count (nu mber/volume)Ordered By: Dr. Ayers on 10-22-2022 RBC (Bld) [#/Vol] 3.17 10*6/uL 4.6-6.2 [facility] Blood hemoglobin measurement (mass/volume)Ordered By: Dr. Ayers on 10-22-2022 Hemoglobin (Bld) [Mass/Vol] 8.3 g/dL 13.0-16.5 [facility] Blood lymphocytes/100 leukoc ytesOrdered By: Dr. Ayers on 10-22-2022 Lymphocytes/100 WBC (Bld) 23.3 % 19-41 [facility] Blood monocytes/100 leukocyt esOrdered By: Dr. Ayers on 10-22-2022 Monocytes/100 WBC (Bld) 13.8 % 0-10 [facility] Blood platelet mean volumeOr dered By: Dr. Ayers on 10-22-2022 Platelet mean volume (Bld) [Entitic vol] 9.8 fL 6.2-12.0 [facility] Determination of erythrocyte mean corpuscular volume (MCV)Ordered By: Dr. Ayers on 10-22-2022 MCV (RBC) [Entitic vol] 89.9 fL 80-94 [facility] Hematocrit Auto (Bld) [Volum e fraction]Ordered By: Dr. Ayers on 10-22-2022 Hematocrit (Bld) [Volume fraction] 28.5 % 40-54 [facility] MCHC Auto (RBC) [Mass/Vol]Or dered By: Dr. Ayers on 10-22-2022 MCHC (RBC) [Mass/Vol] 29.1 g/dL 32-36 [facility] No Panel InformationOrdered By: Dr. Ayers on 10-22-2022 26.2 pg 27.0-32.0 [facility] 16.7 % 11.6-14.6 [facility] 54.3 fl 35.1-43.9 [facility] 0.300 % 0.0-0.9 [facility] 0 % 0-5 [facility] Platelets bldOrdered By: Dr. Ayers on 10-22-2022 Platelets (Bld) [#/Vol] 243 10*3/uL 150-450 [facility] Assessment of wrist artery p atency prior to arterial punctureOrdered By: Dr. Ayers on 10-21-2022 Arterial patency Wrist artery --pre arterial puncture Positive [facility] Base excessOrdered By: Dr. Tyler hernandez on 10-21-2022 Base excess Calc (BldV) [Moles/Vol] 6 mmol/L -2-2 [facility] Basophil percentageOrdered B y: Dr. Ayers on 10-21-2022 Basophil percentage 31.0 mmol/L 22-26 [facility] Basophils/100 WBC (Bld) 80 % 95-99 [facility] Basophil percentageOrdered B y: Dr. Bower on 10-21-2022 Basophil percentage 92 mg/dL 74-106 [facility] Basophil percentage 145 mmol/L 136-145 [facility] Basophil percentage 3.5 mmol/L 3.5-5.1 [facility] Basophil percentage 107 mmol/L 98-107 [facility] CO2 (BldA) [Partial pressure ]Ordered By: Dr. Ayers on 10-21-2022 CO2 (Bld) [Partial pressure] 48.9 mm[Hg] 35-45 [facility] INR in Blood by Coagulation assayOrdered By: Dr. Bower on 10-21-2022 INR Coag (Bld) [Relative time] 1.3 {INR} [facility] No Panel InformationOrdered By: Dr. Ayers on 10-21-2022 ART [facility] R Radial [facility] Room Air [facility] 21 [facility] 33 mmol/L [facility] No Panel InformationOrdered By: Dr. Bower on 10-21-2022 16.6 SECONDS 11.7-14.9 [facility] 38.3 Seconds 24.1-36.2 [facility] 90 mL/min >60 [facility] 109 mL/min >60 [facility] 50.93 ml/min [facility] 13.8 RATIO 10-20 [facility] 32.0 mmol/L 21.0-32.0 [facility] Oxygen (BldA) [Partial press ure]Ordered By: Dr. Ayers on 10-21-2022 Oxygen (Bld) [Partial pressure] 45 mmHG 75-100 [facility] Serum or plasma albumin lenka urement (mass/volume)Ordered By: Dr. Bower on 10-21-2022 Albumin [Mass/Vol] 2.7 g/dL 3.2-5.0 [facility] Serum or plasma calcium lenka urement (mass/volume)Ordered By: Dr. Bower on 10-21-2022 Calcium [Mass/Vol] 8.1 mg/dL 8.5-10.1 [facility] Serum or plasma creatinine m easurement (mass/volume)Ordered By: Dr. Bower on 10-21-2022 Creatinine [Mass/Vol] 0.87 mg/dL 0.70-1.30 [facility] Serum or plasma urea nitroge n measurement (mass/volume)Ordered By: Dr. Bower on 10-21-2022 Urea nitrogen [Mass/Vol] 12 mg/dL 7-18 [facility] Thin prep Papanicolaou smear with manual screeningOrdered By: Dr. Bower on 10-21-2022 Thin prep Papanicolaou smear with manual screening 6 5-15 [facility] pH measurementOrdered By: Dr Lev Ayers on 10-21-2022 pH (Unsp spec) 7.41 [pH] 7.35-7.45 [facility] Hypochromatic red blood cell detectionOrdered By: Jorge Daly on 10-20-2022 Hypochromia Ql (Bld) 1+ [facility] Lower GI hemoglobin IA Ql (S tl)Ordered By: Jorge Daly on 10-20-2022 Stool gastrointestinal hemoglobin detection by immunologic method Positive [facility] Stool gastrointestinal hemoglobin detection by immunologic method Positive [facility] No Panel InformationOrdered By: Jorge Daly on 10-20-2022 1+ [facility] 334.6 pg/mL 0-100 [facility] Absolute lymphocyte countOrd ered By: Dr. Short on 10-19-2022 Lymphocytes Auto (Unsp spec) [#/Vol] 0.43 10*3/uL 0.83-4.51 [facility] Basophil percentageOrdered B y: Dr. Short on 10-19-2022 Basophil percentage 108 mg/dL 74-106 [facility] Basophil percentage 6.6 g/dL 6.4-8.2 [facility] Basophil percentage 0.50 mg/dL 0.20-1.00 [facility] Basophil percentage 138 mmol/L 136-145 [facility] Basophil percentage 3.8 mmol/L 3.5-5.1 [facility] Basophil percentage 102 mmol/L 98-107 [facility] Basophil percentage 279 U/L 87-241 [facility] Basophils (Bld) [#/Vol] 5.4 10*3/uL 4.4-11.0 [facility] Basophils (Bld) [#/Vol] 4.5 10*3/uL 2.0-7.7 [facility] Basophils/100 WBC (Bld) 83.4 % 47-70 [facility] Basophils/100 WBC (Bld) 2.2 % 0-5 [facility] Basophils/100 WBC (Bld) 0.4 % 0-1 [facility] Blood erythrocytes count (nu mber/volume)Ordered By: Dr. Short on 10-19-2022 RBC (Bld) [#/Vol] 3.00 10*6/uL 4.6-6.2 [facility] Blood hemoglobin measurement (mass/volume)Ordered By: Dr. Short on 10-19-2022 Hemoglobin (Bld) [Mass/Vol] 7.9 g/dL 13.0-16.5 [facility] Blood lymphocytes/100 leukoc ytesOrdered By: Dr. Short on 10-19-2022 Lymphocytes/100 WBC (Bld) 8.0 % 19-41 [facility] Blood monocytes/100 leukocyt esOrdered By: Dr. Short on 10-19-2022 Monocytes/100 WBC (Bld) 5.6 % 0-10 [facility] Blood platelet mean volumeOr dered By: Dr. Short on 10-19-2022 Platelet mean volume (Bld) [Entitic vol] 9.8 fL 6.2-12.0 [facility] Blood schistocytes detection by light microscopyOrdered By: Dr. Short on 10-19-2022 Schistocytes LM Ql (Bld) 1+ [facility] Determination of erythrocyte mean corpuscular volume (MCV)Ordered By: Dr. Short on 10-19-2022 MCV (RBC) [Entitic vol] 89.7 fL 80-94 [facility] Hematocrit Auto (Bld) [Volum e fraction]Ordered By: Dr. Short on 10-19-2022 Hematocrit (Bld) [Volume fraction] 26.9 % 40-54 [facility] Hypochromatic red blood cell detectionOrdered By: Dr. Short on 10-19-2022 Hypochromia Ql (Bld) 1+ [facility] Iron measurement (mass/mass) Ordered By: Dr. Short on 10-19-2022 Iron (Unsp spec) [Mass/Mass] 18 ug/dL 65-175 [facility] MCHC Auto (RBC) [Mass/Vol]Or dered By: Dr. Short on 10-19-2022 MCHC (RBC) [Mass/Vol] 29.4 g/dL 32-36 [facility] No Panel InformationOrdered By: Dr. Short on 10-19-2022 26.3 pg 27.0-32.0 [facility] 16.9 % 11.6-14.6 [facility] 54.2 fl 35.1-43.9 [facility] 0.400 % 0.0-0.9 [facility] 0 % 0-5 [facility] 2+ [facility] 87 mL/min >60 [facility] 105 mL/min >60 [facility] 16.8 RATIO 10-20 [facility] 3.5 g/dL 2.2-4.2 [facility] 101 U/L 45-117 [facility] 19 U/L 16-61 [facility] 31.0 mmol/L 21.0-32.0 [facility] 351 ug/dL 250-450 [facility] Ovalocyte detectionOrdered B y: Dr. Short on 10-19-2022 Ovalocytes LM Ql (Bld) RARE [facility] Platelets bldOrdered By: Dr. Short on 10-19-2022 Platelets (Bld) [#/Vol] 253 10*3/uL 150-450 [facility] Serum or plasma albumin lenka urement (mass/volume)Ordered By: Dr. Short on 10-19-2022 Albumin [Mass/Vol] 3.1 g/dL 3.2-5.0 [facility] Serum or plasma albumin/glob ulin mass ratioOrdered By: Dr. Short on 10-19-2022 Albumin/Globulin [Mass ratio] 0.9 {ratio} 0.9-2.4 [facility] Serum or plasma calcium lenka urement (mass/volume)Ordered By: Dr. Short on 10-19-2022 Calcium [Mass/Vol] 8.4 mg/dL 8.5-10.1 [facility] Serum or plasma creatinine m easurement (mass/volume)Ordered By: Dr. Short on 10-19-2022 Creatinine [Mass/Vol] 0.90 mg/dL 0.70-1.30 [facility] Serum or plasma ferritin aditya surement (mass/volume)Ordered By: Dr. Short on 10-19-2022 Ferritin [Mass/Vol] 71 ng/mL 26-388 [facility] Serum or plasma iron saturat ion measurement (mass fraction)Ordered By: Dr. Short on 10-19-2022 Iron saturation [Mass fraction] 5.1 % 15.0-55.0 [facility] Serum or plasma urea nitroge n measurement (mass/volume)Ordered By: Dr. Short on 10-19-2022 Urea nitrogen [Mass/Vol] 15 mg/dL 7-18 [facility] Thin prep Papanicolaou smear with manual screeningOrdered By: Dr. Short on 10-19-2022 Thin prep Papanicolaou smear with manual screening 23 U/L 15-37 [facility] Thin prep Papanicolaou smear with manual screening 5 5-15 [facility] Absolute lymphocyte countOrd ered By: Dr. Plasencia on 10-14-2022 Lymphocytes Auto (Unsp spec) [#/Vol] 1.06 10*3/uL 0.83-4.51 [facility] Basophil percentageOrdered B y: Dr. Plasencia on 10-14-2022 Basophil percentage 120 mg/dL 74-106 [facility] Basophil percentage 6.5 g/dL 6.4-8.2 [facility] Basophil percentage 0.30 mg/dL 0.20-1.00 [facility] Basophil percentage 139 mmol/L 136-145 [facility] Basophil percentage 3.9 mmol/L 3.5-5.1 [facility] Basophil percentage 102 mmol/L 98-107 [facility] Basophils (Bld) [#/Vol] 6.3 10*3/uL 4.4-11.0 [facility] Basophils (Bld) [#/Vol] 5.0 10*3/uL 2.0-7.7 [facility] Basophils/100 WBC (Bld) 79.0 % 47-70 [facility] Basophils/100 WBC (Bld) 0.3 % 0-5 [facility] Basophils/100 WBC (Bld) 0.2 % 0-1 [facility] Blood erythrocytes count (nu mber/volume)Ordered By: Dr. Plasencia on 10-14-2022 RBC (Bld) [#/Vol] 2.87 10*6/uL 4.6-6.2 [facility] Blood hemoglobin measurement (mass/volume)Ordered By: Dr. Plasencia on 10-14-2022 Hemoglobin (Bld) [Mass/Vol] 7.5 g/dL 13.0-16.5 [facility] Blood lymphocytes/100 leukoc ytesOrdered By: Dr. Plasencia on 10-14-2022 Lymphocytes/100 WBC (Bld) 16.8 % 19-41 [facility] Blood monocytes/100 leukocyt esOrdered By: Dr. Plasencia on 10-14-2022 Monocytes/100 WBC (Bld) 3.2 % 0-10 [facility] Blood platelet mean volumeOr dered By: Dr. Plasencia on 10-14-2022 Platelet mean volume (Bld) [Entitic vol] 9.9 fL 6.2-12.0 [facility] Determination of erythrocyte mean corpuscular volume (MCV)Ordered By: Dr. Plasencia on 10-14-2022 MCV (RBC) [Entitic vol] 89.5 fL 80-94 [facility] Hematocrit Auto (Bld) [Volum e fraction]Ordered By: Dr. Plasencia on 10-14-2022 Hematocrit (Bld) [Volume fraction] 25.7 % 40-54 [facility] MCHC Auto (RBC) [Mass/Vol]Or dered By: Dr. Plasencia on 10-14-2022 MCHC (RBC) [Mass/Vol] 29.2 g/dL 32-36 [facility] No Panel InformationOrdered By: Dr. Plasencia on 10-14-2022 26.1 pg 27.0-32.0 [facility] 16.7 % 11.6-14.6 [facility] 53.6 fl 35.1-43.9 [facility] 0.500 % 0.0-0.9 [facility] 0 % 0-5 [facility] 64 mL/min >60 [facility] 77 mL/min >60 [facility] 17.9 RATIO 10-20 [facility] 3.3 g/dL 2.2-4.2 [facility] 105 U/L 45-117 [facility] 24 U/L 16-61 [facility] 32.0 mmol/L 21.0-32.0 [facility] Platelets bldOrdered By: Dr. Plasencia on 10-14-2022 Platelets (Bld) [#/Vol] 265 10*3/uL 150-450 [facility] Serum or plasma albumin lenka urement (mass/volume)Ordered By: Dr. Plasencia on 10-14-2022 Albumin [Mass/Vol] 3.2 g/dL 3.2-5.0 [facility] Serum or plasma albumin/glob ulin mass ratioOrdered By: Dr. Plasencia on 10-14-2022 Albumin/Globulin [Mass ratio] 1.0 {ratio} 0.9-2.4 [facility] Serum or plasma calcium lenka urement (mass/volume)Ordered By: Dr. Plasencia on 10-14-2022 Calcium [Mass/Vol] 8.1 mg/dL 8.5-10.1 [facility] Serum or plasma creatinine m easurement (mass/volume)Ordered By: Dr. Plasencia on 10-14-2022 Creatinine [Mass/Vol] 1.17 mg/dL 0.70-1.30 [facility] Serum or plasma urea nitroge n measurement (mass/volume)Ordered By: Dr. Plasencia on 10-14-2022 Urea nitrogen [Mass/Vol] 21 mg/dL 7-18 [facility] Thin prep Papanicolaou smear with manual screeningOrdered By: Dr. Plasencia on 10-14-2022 Thin prep Papanicolaou smear with manual screening 27 U/L 15-37 [facility] Thin prep Papanicolaou smear with manual screening 5 5-15 [facility] Basophil percentageOrdered B y: Iliana Moon on 10-11-2022 Basophil percentage 118 mg/dL 74-106 [facility] Basophil percentage 140 mmol/L 136-145 [facility] Basophil percentage 4.0 mmol/L 3.5-5.1 [facility] Basophil percentage 102 mmol/L 98-107 [facility] No Panel InformationOrdered By: Iliana Moon on 10-11-2022 66 mL/min >60 [facility] 80 mL/min >60 [facility] 16.7 RATIO 10-20 [facility] 32.0 mmol/L 21.0-32.0 [facility] 301.8 pg/mL 0-100 [facility] Serum or plasma calcium lenka urement (mass/volume)Ordered By: Iliana Moon on 10-11-2022 Calcium [Mass/Vol] 8.5 mg/dL 8.5-10.1 [facility] Serum or plasma creatinine m easurement (mass/volume)Ordered By: Iliana Moon on 10-11-2022 Creatinine [Mass/Vol] 1.14 mg/dL 0.70-1.30 [facility] Serum or plasma urea nitroge n measurement (mass/volume)Ordered By: Iliana Moon on 10-11-2022 Urea nitrogen [Mass/Vol] 19 mg/dL 7-18 [facility] Thin prep Papanicolaou smear with manual screeningOrdered By: Iliana Moon on 10-11-2022 Thin prep Papanicolaou smear with manual screening 6 5-15 [facility] Absolute lymphocyte countOrd ered By: Dr. Vega on 09-25-2022 Lymphocytes Auto (Unsp spec) [#/Vol] 1.26 10*3/uL 0.83-4.51 [facility] Basophil percentageOrdered B y: Dr. Vega on 09-25-2022 Basophil percentage 114 mg/dL 74-106 [facility] Basophil percentage 139 mmol/L 136-145 [facility] Basophil percentage 3.6 mmol/L 3.5-5.1 [facility] Basophil percentage 105 mmol/L 98-107 [facility] Basophils (Bld) [#/Vol] 8.8 10*3/uL 4.4-11.0 [facility] Basophils (Bld) [#/Vol] 6.3 10*3/uL 2.0-7.7 [facility] Basophils/100 WBC (Bld) 0.3 % 0-1 [facility] Basophils/100 WBC (Bld) 71.5 % 47-70 [facility] Basophils/100 WBC (Bld) 3.6 % 0-5 [facility] Chloride [Moles/Vol] 105 mmol/L 98-107 [facility] Eosinophils/100 WBC (Bld) 3.6 % 0-5 [facility] Glucose [Mass/Vol] 114 mg/dL 74-106 [facility] Comment on above: Fasting Glucose resu lt from 100 to 125 mg/dL suggests IMPAIRED HOMEOSTASIS per A.D.A. criteria. Neutrophils (Bld) [#/Vol] 6.3 10*3/uL 2.0-7.7 [facility] Neutrophils/100 WBC (Bld) 71.5 % 47-70 [facility] Potassium [Moles/Vol] 3.6 mmol/L 3.5-5.1 [facility] Sodium [Moles/Vol] 139 mmol/L 136-145 [facility] WBC (Bld) [#/Vol] 8.8 10*3/uL 4.4-11.0 [facility] Blood erythrocytes count (nu mber/volume)Ordered By: Dr. Vega on 09-25-2022 RBC (Bld) [#/Vol] 2.99 10*6/uL 4.6-6.2 [facility] Blood hemoglobin measurement (mass/volume)Ordered By: Dr. Vega on 09-25-2022 Hemoglobin (Bld) [Mass/Vol] 8.4 g/dL 13.0-16.5 [facility] Blood lymphocytes/100 leukoc ytesOrdered By: Dr. Vega on 09-25-2022 Lymphocytes/100 WBC (Bld) 14.3 % 19-41 [facility] Blood monocytes/100 leukocyt esOrdered By: Dr. Vega on 09-25-2022 Monocytes/100 WBC (Bld) 10.0 % 0-10 [facility] Blood platelet mean volumeOr dered By: Dr. Vega on 09-25-2022 Platelet mean volume (Bld) [Entitic vol] 9.2 fL 6.2-12.0 [facility] Determination of erythrocyte mean corpuscular volume (MCV)Ordered By: Dr. Vega on 09-25-2022 MCV (RBC) [Entitic vol] 91.6 fL 80-94 [facility] Hematocrit Auto (Bld) [Volum e fraction]Ordered By: Dr. Vega on 09-25-2022 Hematocrit (Bld) [Volume fraction] 27.4 % 40-54 [facility] Laboratory - Chemistry and C hemistry - challengeOrdered By: Dr. Vega on 09-25-2022 CO2 [Moles/Vol] 31.0 mmol/L 21.0-32.0 [facility] Urea nitrogen/Creatinine [Mass ratio] 18.3 mg/mg 10-20 [facility] - Hematology and Cell countsOrdered By: Dr. Vega on 09-25-2022 Erythrocyte distribution width (RBC) [Entitic vol] 55.3 fL 35.1-43.9 [facility] Erythrocyte distribution width (RBC) [Ratio] 16.8 % 11.6-14.6 [facility] Immature granulocytes/100 WBC (Bld) 0.300 % 0.0-0.9 [facility] Comment on above: IG% - Immature Granu locytes (promyelocytes, myelocytes and metamyelocytes) > 1% indicates that a LEFT SHIFT is Present. MCH (RBC) [Entitic mass] 28.1 pg 27.0-32.0 [facility] Nucleated RBC/100 WBC (Bld) [Ratio] 0 % 0-5 [facility] MCHC Auto (RBC) [Mass/Vol]Or dered By: Dr. Vega on 09-25-2022 MCHC (RBC) [Mass/Vol] 30.7 g/dL 32-36 [facility] [facility] No Panel InformationOrdered By: Dr. Vega on 09-25-2022 Estimated Creatinine Clearance Calc 46.26 ml/min [facility] Estimated GFR (MDRD) Amer 126 mL/min >60 [facility] Comment on above: GFR Calc Estimated GFR (MDRD) Non-Af Amer 104 mL/min >60 [facility] Comment on above: Non- GFR Calc 28.1 pg 27.0-32.0 [facility] 16.8 % 11.6-14.6 [facility] 55.3 fl 35.1-43.9 [facility] 0.300 % 0.0-0.9 [facility] 0 % 0-5 [facility] 104 mL/min >60 [facility] 126 mL/min >60 [facility] 46.26 ml/min [facility] 18.3 RATIO 10-20 [facility] 31.0 mmol/L 21.0-32.0 [facility] Platelets bldOrdered By: Dr. Vega on 09-25-2022 Platelets (Bld) [#/Vol] 289 10*3/uL 150-450 [facility] Serum or plasma calcium lenka urement (mass/volume)Ordered By: Dr. Vgea on 09-25-2022 Calcium [Mass/Vol] 8.2 mg/dL 8.5-10.1 [facility] Serum or plasma creatinine m easurement (mass/volume)Ordered By: Dr. Vega on 09-25-2022 Creatinine [Mass/Vol] 0.77 mg/dL 0.70-1.30 [facility] Comment on above: The validity of the calculated GFR & GFRAA in patients over 70 years has not been determined. Clinical correlation is essential. Serum or plasma urea nitroge n measurement (mass/volume)Ordered By: Dr. Vega on 09-25-2022 Urea nitrogen [Mass/Vol] 14 mg/dL 7-18 [facility] Thin prep Papanicolaou smear with manual screeningOrdered By: Dr. Vega on 09-25-2022 Thin prep Papanicolaou smear with manual screening 3 5-15 [facility] No Panel InformationOrdered By: Dr. Vega on 09-24-2022 Thyroid Stimulating Hormone (TSH) 2.20 uIU/mL 0.358-3.74 [facility] 2.20 uIU/mL 0.358-3.74 [facility] Absolute lymphocyte countOrd ered By: Dr. Lozano on 09-23-2022 Lymphocytes Auto (Unsp spec) [#/Vol] 0.92 10*3/uL 0.83-4.51 [facility] Assessment of wrist artery p atency prior to arterial punctureOrdered By: Dr. Vega on 09-23-2022 Arterial patency Wrist artery --pre arterial puncture Positive [facility] Base excessOrdered By: Dr. Tellez iercguillermo on 09-23-2022 Base excess Calc (BldV) [Moles/Vol] 6 mmol/L -2-2 [facility] Basophil percentageOrdered B y: Dr. Vega on 09-23-2022 Basophil percentage 30.6 mmol/L 22-26 [facility] Basophils/100 WBC (Bld) 96 % 95-99 [facility] Basophil percentageOrdered B y: Dr. Lozano on 09-23-2022 Basophil percentage 5.9 g/dL 6.4-8.2 [facility] Basophil percentage 0.90 mg/dL 0.20-1.00 [facility] Basophils/100 WBC (Bld) 0.9 % 0-1 [facility] Bilirubin [Mass/Vol] 0.90 mg/dL 0.20-1.00 [facility] Comment on above: For patients on eltr ombopag therapy, use of Dimension [place] TBIL is not recommended. Chloride [Moles/Vol] 105 mmol/L 98-107 [facility] Eosinophils/100 WBC (Bld) 2.2 % 0-5 [facility] Glucose [Mass/Vol] 104 mg/dL 74-106 [facility] Comment on above: Fasting Glucose resu lt from 100 to 125 mg/dL suggests IMPAIRED HOMEOSTASIS per A.D.A. criteria. Neutrophils (Bld) [#/Vol] 4.1 10*3/uL 2.0-7.7 [facility] Neutrophils/100 WBC (Bld) 69.7 % 47-70 [facility] Potassium [Moles/Vol] 3.6 mmol/L 3.5-5.1 [facility] Protein [Mass/Vol] 5.9 g/dL 6.4-8.2 [facility] Sodium [Moles/Vol] 138 mmol/L 136-145 [facility] WBC (Bld) [#/Vol] 5.8 10*3/uL 4.4-11.0 [facility] Blood erythrocytes count (nu mber/volume)Ordered By: Dr. Lozano on 09-23-2022 RBC (Bld) [#/Vol] 2.93 10*6/uL 4.6-6.2 [facility] Blood hemoglobin measurement (mass/volume)Ordered By: Dr. Lozano on 09-23-2022 Hemoglobin (Bld) [Mass/Vol] 8.1 g/dL 13.0-16.5 [facility] Blood lymphocytes/100 leukoc ytesOrdered By: Dr. Lozano on 09-23-2022 Lymphocytes/100 WBC (Bld) 15.8 % 19-41 [facility] Blood monocytes/100 leukocyt esOrdered By: Dr. Lozano on 09-23-2022 Monocytes/100 WBC (Bld) 11.1 % 0-10 [facility] Blood platelet mean volumeOr dered By: Dr. Lozano on 09-23-2022 Platelet mean volume (Bld) [Entitic vol] 9.0 fL 6.2-12.0 [facility] CO2 (BldA) [Partial pressure ]Ordered By: Dr. Vega on 09-23-2022 CO2 (Bld) [Partial pressure] 47.0 mm[Hg] 35-45 [facility] Determination of erythrocyte mean corpuscular volume (MCV)Ordered By: Dr. Lozano on 09-23-2022 MCV (RBC) [Entitic vol] 92.2 fL 80-94 [facility] Hematocrit Auto (Bld) [Volum e fraction]Ordered By: Dr. Lozano on 09-23-2022 Hematocrit (Bld) [Volume fraction] 27.0 % 40-54 [facility] Influenza virus A and B and SARS-CoV-2 (COVID-19) Ag panel - Upper respiratory specimOrdered By: Aisha Vega on 09-23-2022 SARS-CoV-2 (COVID-19) RNA JUDI+probe Ql (Resp) [facility] Influenza virus A and B and SARS-CoV-2 (COVID-19) Ag panel - Upper respiratory specimOrdered By: Dr. Vega on 09-23-2022 SARS-CoV-2 (COVID-19) RNA JUDI+probe Ql (Resp) [facility] Laboratory - Chemistry and C hemistry - challengeOrdered By: Dr. Lozano on 09-23-2022 ALP [Catalytic activity/Vol] 89 U/L 45-117 [facility] ALT [Catalytic activity/Vol] 28 U/L 16-61 [facility] CO2 [Moles/Vol] 31.0 mmol/L 21.0-32.0 [facility] Globulin (S) [Mass/Vol] 3.0 g/dL 2.2-4.2 [facility] Natriuretic peptide B (Bld) [Mass/Vol] 243.4 pg/mL 0-100 [facility] Urea nitrogen/Creatinine [Mass ratio] 15.9 mg/mg 10-20 [facility] Laboratory - Hematology and Cell countsOrdered By: Dr. Lozano on 09-23-2022 Erythrocyte distribution width (RBC) [Entitic vol] 55.1 fL 35.1-43.9 [facility] Erythrocyte distribution width (RBC) [Ratio] 16.6 % 11.6-14.6 [facility] Immature granulocytes/100 WBC (Bld) 0.300 % 0.0-0.9 [facility] Comment on above: IG% - Immature Granu locytes (promyelocytes, myelocytes and metamyelocytes) > 1% indicates that a LEFT SHIFT is Present. MCH (RBC) [Entitic mass] 27.6 pg 27.0-32.0 [facility] Nucleated RBC/100 WBC (Bld) [Ratio] 0 % 0-5 [facility] Laboratory - Microbiology an d Antimicrobial susceptibilityOrdered By: Aisha Vega on 09-23-2022 Respiratory pathogens DNA and RNA 12b panel JUDI+probe (Unsp spec) [facility] Laboratory - Microbiology an d Antimicrobial susceptibilityOrdered By: Dr. Vega on 09-23-2022 Respiratory pathogens DNA and RNA 12b panel JUDI+probe (Unsp spec) [facility] MCHC Auto (RBC) [Mass/Vol]Or dered By: Dr. Lozano on 09-23-2022 MCHC (RBC) [Mass/Vol] 30.0 g/dL 32-36 [facility] No Panel InformationOrdered By: Dr. Vega on 09-23-2022 Blood Gas Liter Flow 3.0 /min [facility] Blood Gas Sample Site R Radial [facility] Blood Gas Specimen Type ART [facility] Blood Gas Total CO2 32 mmol/L [facility] Oxygen Delivery Device Cannula [facility] R Radial [facility] Cannula [facility] 3.0 /min [facility] 32 mmol/L [facility] Troponin I High Sensitivity 164 pg/mL 3.0-78.0 [facility] Comment on above: Critical Result(s) C alled at: 11:49:13 09/23/2022 by: Lamar Amador to [place]. Results read back by same. Please Note: New Test Units and Gender Specific Reference Ranges. For more information see Policy Stat Procedure [place] High Sensitivity Troponin (TNIH) and attachments. 164 pg/mL 3.0-78.0 [facility] No Panel InformationOrdered By: Dr. Lozano on 09-23-2022 Estimated Creatinine Clearance Calc 53.36 ml/min [facility] Estimated GFR (MDRD) Amer 99 mL/min >60 [facility] Comment on above: GFR Calc Estimated GFR (MDRD) Non-Af Amer 82 mL/min >60 [facility] Comment on above: Non- GFR Calc Troponin I High Sensitivity 138 pg/mL 3.0-78.0 [facility] Comment on above: Critical Result(s) C alled at: 08:53:23 09/23/2022 by: Alverto Garcia RN (ER). Results read back by same. Please Note: New Test Units and Gender Specific Reference Ranges. For more information see Policy Stat Procedure [place] High Sensitivity Troponin (TNIH) and attachments. 3.0 g/dL 2.2-4.2 [facility] 89 U/L 45-117 [facility] 28 U/L 16-61 [facility] 243.4 pg/mL 0-100 [facility] Oxygen (BldA) [Partial press ure]Ordered By: Dr. Vega on 09-23-2022 Oxygen (Bld) [Partial pressure] 82 mmHG 75-100 [facility] Platelets bldOrdered By: Dr. Lozano on 09-23-2022 Platelets (Bld) [#/Vol] 316 10*3/uL 150-450 [facility] Serum or plasma albumin lenka urement (mass/volume)Ordered By: Dr. Lozano on 09-23-2022 Albumin [Mass/Vol] 2.9 g/dL 3.2-5.0 [facility] Serum or plasma albumin/glob ulin mass ratioOrdered By: Dr. Lozano on 09-23-2022 Albumin/Globulin [Mass ratio] 1.0 {ratio} 0.9-2.4 [facility] Serum or plasma calcium lenka urement (mass/volume)Ordered By: Dr. Lozano on 09-23-2022 Calcium [Mass/Vol] 8.2 mg/dL 8.5-10.1 [facility] Serum or plasma creatinine m easurement (mass/volume)Ordered By: Dr. Lozano on 09-23-2022 Creatinine [Mass/Vol] 0.94 mg/dL 0.70-1.30 [facility] Comment on above: The validity of the calculated GFR & GFRAA in patients over 70 years has not been determined. Clinical correlation is essential. Serum or plasma urea nitroge n measurement (mass/volume)Ordered By: Dr. Lozano on 09-23-2022 Urea nitrogen [Mass/Vol] 15 mg/dL 7-18 [facility] Thin prep Papanicolaou smear with manual screeningOrdered By: Dr. Lozano on 09-23-2022 Thin prep Papanicolaou smear with manual screening 29 U/L 15-37 [facility] Thin prep Papanicolaou smear with manual screening 2 5-15 [facility] pH measurementOrdered By: Dr Lev Vega on 09-23-2022 pH (Unsp spec) 7.42 [pH] 7.35-7.45 [facility] Stool gastrointestinal hemog lobin detection by immunologic methodOrdered By: Catalino Short on 09-22-2022 Lower GI hemoglobin IA Ql (Stl) [facility] Lower GI hemoglobin IA Ql (Stl) [facility] Stool gastrointestinal hemog lobin detection by immunologic methodOrdered By: Dr. Short on 09-22-2022 Lower GI hemoglobin IA Ql (Stl) [facility] Absolute lymphocyte countOrd ered By: Dr. Short on 09-21-2022 Lymphocytes Auto (Unsp spec) [#/Vol] 0.72 10*3/uL 0.83-4.51 [facility] Basophil percentageOrdered B y: Dr. Short on 09-21-2022 Basophil percentage 379 U/L 87-241 [facility] Basophils (Bld) [#/Vol] 6.5 10*3/uL 4.4-11.0 [facility] Basophils (Bld) [#/Vol] 5.5 10*3/uL 2.0-7.7 [facility] Basophils/100 WBC (Bld) 0.5 % 0-1 [facility] Basophils/100 WBC (Bld) 84.2 % 47-70 [facility] Basophils/100 WBC (Bld) 0.3 % 0-5 [facility] Eosinophils/100 WBC (Bld) 0.3 % 0-5 [facility] LDH [Catalytic activity/Vol] 379 U/L 87-241 [facility] Neutrophils (Bld) [#/Vol] 5.5 10*3/uL 2.0-7.7 [facility] Neutrophils/100 WBC (Bld) 84.2 % 47-70 [facility] WBC (Bld) [#/Vol] 6.5 10*3/uL 4.4-11.0 [facility] Blood erythrocytes count (nu mber/volume)Ordered By: Dr. Short on 09-21-2022 RBC (Bld) [#/Vol] 2.98 10*6/uL 4.6-6.2 [facility] Blood hemoglobin measurement (mass/volume)Ordered By: Dr. Short on 09-21-2022 Hemoglobin (Bld) [Mass/Vol] 8.4 g/dL 13.0-16.5 [facility] Blood lymphocytes/100 leukoc ytesOrdered By: Dr. Short on 09-21-2022 Lymphocytes/100 WBC (Bld) 11.0 % 19-41 [facility] Blood monocytes/100 leukocyt esOrdered By: Dr. Short on 09-21-2022 Monocytes/100 WBC (Bld) 3.7 % 0-10 [facility] Blood platelet mean volumeOr dered By: Dr. Short on 09-21-2022 Platelet mean volume (Bld) [Entitic vol] 9.4 fL 6.2-12.0 [facility] Determination of erythrocyte mean corpuscular volume (MCV)Ordered By: Dr. Short on 09-21-2022 MCV (RBC) [Entitic vol] 91.3 fL 80-94 [facility] Erythrocyte sedimentation ra teOrdered By: Dr. Short on 09-21-2022 ESR (Bld) [Velocity] 34 mm/h 0-20 [facility] Hematocrit Auto (Bld) [Volum e fraction]Ordered By: Dr. Short on 09-21-2022 Hematocrit (Bld) [Volume fraction] 27.2 % 40-54 [facility] Laboratory - Hematology and Cell countsOrdered By: Dr. Short on 09-21-2022 Erythrocyte distribution width (RBC) [Entitic vol] 53.7 fL 35.1-43.9 [facility] Erythrocyte distribution width (RBC) [Ratio] 16.5 % 11.6-14.6 [facility] Immature granulocytes/100 WBC (Bld) 0.300 % 0.0-0.9 [facility] Comment on above: IG% - Immature Granu locytes (promyelocytes, myelocytes and metamyelocytes) > 1% indicates that a LEFT SHIFT is Present. MCH (RBC) [Entitic mass] 28.2 pg 27.0-32.0 [facility] Nucleated RBC/100 WBC (Bld) [Ratio] 0 % 0-5 [facility] MCHC Auto (RBC) [Mass/Vol]Or dered By: Dr. Short on 09-21-2022 MCHC (RBC) [Mass/Vol] 30.9 g/dL 32-36 [facility] No Panel InformationOrdered By: Dr. Short on 09-21-2022 28.2 pg 27.0-32.0 [facility] 16.5 % 11.6-14.6 [facility] 53.7 fl 35.1-43.9 [facility] 0.300 % 0.0-0.9 [facility] 0 % 0-5 [facility] Platelets bldOrdered By: Dr. Short on 09-21-2022 Platelets (Bld) [#/Vol] 356 10*3/uL 150-450 [facility] No Panel InformationOrdered By: Dr. Hazel on 09-16-2022 Thyroid Stimulating Hormone (TSH) 1.36 uIU/mL 0.358-3.74 [facility] 1.36 uIU/mL 0.358-3.74 [facility] Absolute lymphocyte countOrd ered By: Dr. Short on 09-12-2022 Lymphocytes Auto (Unsp spec) [#/Vol] 0.41 10*3/uL 0.83-4.51 [facility] Basophil percentageOrdered B y: Dr. Short on 09-12-2022 Basophil percentage 116 mg/dL 74-106 [facility] Basophil percentage 6.5 g/dL 6.4-8.2 [facility] Basophil percentage 0.60 mg/dL 0.20-1.00 [facility] Basophil percentage 136 mmol/L 136-145 [facility] Basophil percentage 4.1 mmol/L 3.5-5.1 [facility] Basophil percentage 107 mmol/L 98-107 [facility] Basophils/100 WBC (Bld) 0.3 % 0-1 [facility] Bilirubin [Mass/Vol] 0.60 mg/dL 0.20-1.00 [facility] Comment on above: For patients on eltr ombopag therapy, use of Dimension [place] TBIL is not recommended. Chloride [Moles/Vol] 107 mmol/L 98-107 [facility] Eosinophils/100 WBC (Bld) 0.2 % 0-5 [facility] Glucose [Mass/Vol] 116 mg/dL 74-106 [facility] Comment on above: Fasting Glucose resu lt from 100 to 125 mg/dL suggests IMPAIRED HOMEOSTASIS per A.D.A. criteria. LDH [Catalytic activity/Vol] 300 U/L 87-241 [facility] Neutrophils (Bld) [#/Vol] 4.9 10*3/uL 2.0-7.7 [facility] Neutrophils/100 WBC (Bld) 85.0 % 47-70 [facility] Potassium [Moles/Vol] 4.1 mmol/L 3.5-5.1 [facility] Protein [Mass/Vol] 6.5 g/dL 6.4-8.2 [facility] Sodium [Moles/Vol] 136 mmol/L 136-145 [facility] WBC (Bld) [#/Vol] 5.8 10*3/uL 4.4-11.0 [facility] Blood erythrocytes count (nu mber/volume)Ordered By: Dr. Short on 09-12-2022 RBC (Bld) [#/Vol] 3.13 10*6/uL 4.6-6.2 [facility] Blood hemoglobin measurement (mass/volume)Ordered By: Dr. Short on 09-12-2022 Hemoglobin (Bld) [Mass/Vol] 9.1 g/dL 13.0-16.5 [facility] Blood lymphocytes/100 leukoc ytesOrdered By: Dr. Short on 09-12-2022 Lymphocytes/100 WBC (Bld) 7.1 % 19-41 [facility] Blood manual differential co mment interpretation (narrative result)Ordered By: Dr. Short on 09-12-2022 Manual differential comment Hiren (Bld) [Interp] SEE COMMENT [facility] Comment on above: LYMPHOPENIA NOTED Blood monocytes/100 leukocyt esOrdered By: Dr[address] Short on 09-12-2022 Monocytes/100 WBC (Bld) 7.1 % 0-10 [facility] Blood platelet adequacy dete ction by light microscopyOrdered By: Dr. Short on 09-12-2022 Platelets LM Ql (Bld) ADEQUATE ADEQ [facility] Blood platelet mean volumeOr dered By: Dr. Short on 09-12-2022 Platelet mean volume (Bld) [Entitic vol] 9.1 fL 6.2-12.0 [facility] Blood platelet morphology de termination (nominal result)Ordered By: Dr. Short on 09-12-2022 Platelet morphology finding Nom (Bld) LARGE [facility] Determination of erythrocyte mean corpuscular volume (MCV)Ordered By: Dr. Short on 09-12-2022 MCV (RBC) [Entitic vol] 93.6 fL 80-94 [facility] Erythrocyte sedimentation ra teOrdered By: Dr. Short on 09-12-2022 ESR (Bld) [Velocity] 27 mm/h 0-20 [facility] Hematocrit Auto (Bld) [Volum e fraction]Ordered By: Dr. Short on 09-12-2022 Hematocrit (Bld) [Volume fraction] 29.3 % 40-54 [facility] Hemoglobin in reticulocytes (mass per reticulocyte)Ordered By: Dr. Short on 09-12-2022 Hemoglobin (Reticulocytes) [Entitic mass] 24.7 pg Low 30-35 [facility] Hypochromatic red blood cell detectionOrdered By: Dr. Short on 09-12-2022 Hypochromia Ql (Bld) 1+ [facility] Iron measurement (mass/mass) Ordered By: Dr. Short on 09-12-2022 Iron (Unsp spec) [Mass/Mass] 15 ug/dL 65-175 [facility] Laboratory - Chemistry and C hemistry - challengeOrdered By: Dr. Short on 09-12-2022 ALP [Catalytic activity/Vol] 96 U/L 45-117 [facility] ALT [Catalytic activity/Vol] 27 U/L 16-61 [facility] CO2 [Moles/Vol] 29.0 mmol/L 21.0-32.0 [facility] Cobalamin (Vitamin B12) [Mass/Vol] 844 pg/mL 211-911 [facility] Globulin (S) [Mass/Vol] 3.3 g/dL 2.2-4.2 [facility] Urea nitrogen/Creatinine [Mass ratio] 13.6 mg/mg 10-20 [facility] Laboratory - Hematology and Cell countsOrdered By: Dr. Short on 09-12-2022 Anisocytosis Ql (Bld) RARE [facility] Erythrocyte distribution width (RBC) [Entitic vol] 55.0 fL 35.1-43.9 [facility] Erythrocyte distribution width (RBC) [Ratio] 16.3 % 11.6-14.6 [facility] Immature granulocytes/100 WBC (Bld) 0.300 % 0.0-0.9 [facility] Comment on above: IG% - Immature Granu locytes (promyelocytes, myelocytes and metamyelocytes) > 1% indicates that a LEFT SHIFT is Present. MCH (RBC) [Entitic mass] 29.1 pg 27.0-32.0 [facility] Nucleated RBC/100 WBC (Bld) [Ratio] 0 % 0-5 [facility] MCHC Auto (RBC) [Mass/Vol]Or dered By: Dr. Short on 09-12-2022 MCHC (RBC) [Mass/Vol] 31.1 g/dL 32-36 [facility] Macrocytes detectionOrdered By: Dr. Short on 09-12-2022 Macrocytes Ql (Bld) RARE [facility] No Panel InformationOrdered By: Dr. Short on 09-12-2022 Estimated GFR (MDRD) Amer 89 mL/min >60 [facility] Comment on above: GFR Calc Estimated GFR (MDRD) Non-Af Amer 74 mL/min >60 [facility] Comment on above: Non- GFR Calc Immature Reticulocyte Fraction 23.80 % 3.00-15.90 [facility] Reticulocyte Count 2.83 % 0.5-1.5 [facility] Total Iron Binding Capacity 303 ug/dL 250-450 [facility] RARE [facility] 2.83 % High 0.5-1.5 [facility] 23.80 % High 3.00-15.90 [facility] 74 mL/min >60 [facility] 89 mL/min >60 [facility] 13.6 RATIO 10-20 [facility] 3.3 g/dL 2.2-4.2 [facility] 96 U/L 45-117 [facility] 27 U/L 16-61 [facility] 29.0 mmol/L 21.0-32.0 [facility] 844 pg/mL 211-911 [facility] 303 ug/dL 250-450 [facility] Ovalocyte detectionOrdered B y: Dr. Short on 09-12-2022 Ovalocytes LM Ql (Bld) [facility] Platelets bldOrdered By: Dr. Short on 09-12-2022 Platelets (Bld) [#/Vol] 214 10*3/uL 150-450 [facility] RBC morphologyOrdered By: Dr Lev Short on 09-12-2022 RBC morphology finding Nom (Bld) N CHROM NORMAL NORM C&C [facility] Serum or plasma albumin lenka urement (mass/volume)Ordered By: Dr. Short on 09-12-2022 Albumin [Mass/Vol] 3.2 g/dL 3.2-5.0 [facility] Serum or plasma albumin/glob ulin mass ratioOrdered By: Dr. Short on 09-12-2022 Albumin/Globulin [Mass ratio] 1.0 {ratio} 0.9-2.4 [facility] Serum or plasma calcium lenka urement (mass/volume)Ordered By: Dr. Short on 09-12-2022 Calcium [Mass/Vol] 8.7 mg/dL 8.5-10.1 [facility] Serum or plasma creatinine m easurement (mass/volume)Ordered By: Dr. Short on 09-12-2022 Creatinine [Mass/Vol] 1.03 mg/dL 0.70-1.30 [facility] Comment on above: The validity of the calculated GFR & GFRAA in patients over 70 years has not been determined. Clinical correlation is essential. Serum or plasma erythropoiet in (EPO) measurement (units/volume)Ordered By: Dr. Short on 09-12-2022 Erythropoietin (EPO) Qn 52.0 mIU/mL High 2.6-18.5 [facility] Comment on above: [employer] DxI 800 Immunoassay SystemValues obtained with different assay methods or kits cannotbe used interchangeably. Results cannot be interpreted asabsolute evidence of the presence or absence of malignantdisease.Performed at: [employer] [id number] Director: Adonay Tucker PhD, Phone: [phone] Serum or plasma ferritin aditya surement (mass/volume)Ordered By: Dr. Short on 09-12-2022 Ferritin [Mass/Vol] 75 ng/mL 26-388 [facility] Serum or plasma folate measu rement (mass/volume)Ordered By: Dr. Short on 09-12-2022 Folate [Mass/Vol] 68.20 ng/mL High 3.1-55.4 [facility] Serum or plasma iron saturat ion measurement (mass fraction)Ordered By: Dr. Short on 09-12-2022 Iron saturation [Mass fraction] 5.0 % 15.0-55.0 [facility] Serum or plasma urea nitroge n measurement (mass/volume)Ordered By: Dr. Short on 09-12-2022 Urea nitrogen [Mass/Vol] 14 mg/dL 7-18 [facility] Thin prep Papanicolaou smear with manual screeningOrdered By: Dr. Short on 09-12-2022 Thin prep Papanicolaou smear with manual screening 28 U/L 15-37 [facility] Thin prep Papanicolaou smear with manual screening 0 5-15 [facility] Absolute lymphocyte countOrd ered By: Nelda Molina on 07-25-2022 Lymphocytes Auto (Unsp spec) [#/Vol] 1.36 10*3/uL 0.83-4.51 [facility] Basophil percentageOrdered B y: Nelda Molina on 07-25-2022 Basophils (Bld) [#/Vol] 6.5 10*3/uL 4.4-11.0 [facility] Basophils (Bld) [#/Vol] 4.2 10*3/uL 2.0-7.7 [facility] Basophils/100 WBC (Bld) 0.3 % 0-1 [facility] Basophils/100 WBC (Bld) 64.8 % 47-70 [facility] Basophils/100 WBC (Bld) 2.0 % 0-5 [facility] Eosinophils/100 WBC (Bld) 2.0 % 0-5 [facility] Neutrophils (Bld) [#/Vol] 4.2 10*3/uL 2.0-7.7 [facility] Neutrophils/100 WBC (Bld) 64.8 % 47-70 [facility] WBC (Bld) [#/Vol] 6.5 10*3/uL 4.4-11.0 [facility] Blood erythrocytes count (nu mber/volume)Ordered By: Nelda Molina on 07-25-2022 RBC (Bld) [#/Vol] 3.78 10*6/uL 4.6-6.2 [facility] Blood hemoglobin measurement (mass/volume)Ordered By: Nelda Molina on 07-25-2022 Hemoglobin (Bld) [Mass/Vol] 11.7 g/dL 13.0-16.5 [facility] Blood lymphocytes/100 leukoc ytesOrdered By: Nelda Molina on 07-25-2022 Lymphocytes/100 WBC (Bld) 21.0 % 19-41 [facility] Blood monocytes/100 leukocyt esOrdered By: Nelda Molina on 07-25-2022 Monocytes/100 WBC (Bld) 11.7 % 0-10 [facility] Blood platelet mean volumeOr dered By: Nelda Molina on 07-25-2022 Platelet mean volume (Bld) [Entitic vol] 9.1 fL 6.2-12.0 [facility] Determination of erythrocyte mean corpuscular volume (MCV)Ordered By: Nelda Molina on 07-25-2022 MCV (RBC) [Entitic vol] 99.5 fL 80-94 [facility] Hematocrit Auto (Bld) [Volum e fraction]Ordered By: Nelda Molina on 07-25-2022 Hematocrit (Bld) [Volume fraction] 37.6 % 40-54 [facility] Hemoglobin in reticulocytes (mass per reticulocyte)Ordered By: Nelda Molina on 07-25-2022 Hemoglobin (Reticulocytes) [Entitic mass] 29.7 pg 30-35 [facility] Iron measurement (mass/mass) Ordered By: Nelda Molina on 07-25-2022 Iron (Unsp spec) [Mass/Mass] 51 ug/dL 65-175 [facility] Laboratory - Hematology and Cell countsOrdered By: Nelda Molina on 07-25-2022 Erythrocyte distribution width (RBC) [Entitic vol] 55.6 fL 35.1-43.9 [facility] Erythrocyte distribution width (RBC) [Ratio] 15.4 % 11.6-14.6 [facility] Immature granulocytes/100 WBC (Bld) 0.200 % 0.0-0.9 [facility] Comment on above: IG% - Immature Granu locytes (promyelocytes, myelocytes and metamyelocytes) > 1% indicates that a LEFT SHIFT is Present. MCH (RBC) [Entitic mass] 31.0 pg 27.0-32.0 [facility] Nucleated RBC/100 WBC (Bld) [Ratio] 0 % 0-5 [facility] MCHC Auto (RBC) [Mass/Vol]Or dered By: Nelda Molina on 07-25-2022 MCHC (RBC) [Mass/Vol] 31.1 g/dL 32-36 [facility] No Panel InformationOrdered By: Nelda Molina on 07-25-2022 Immature Reticulocyte Fraction 17.70 % 3.00-15.90 [facility] Reticulocyte Count 2.37 % 0.5-1.5 [facility] Total Iron Binding Capacity 292 ug/dL 250-450 [facility] 31.0 pg 27.0-32.0 [facility] 15.4 % 11.6-14.6 [facility] 55.6 fl 35.1-43.9 [facility] 0.200 % 0.0-0.9 [facility] 0 % 0-5 [facility] 2.37 % 0.5-1.5 [facility] 17.70 % 3.00-15.90 [facility] 292 ug/dL 250-450 [facility] Platelets bldOrdered By: Mary Molina on 07-25-2022 Platelets (Bld) [#/Vol] 201 10*3/uL 150-450 [facility] Serum or plasma ferritin aditya surement (mass/volume)Ordered By: Nelda Molina on 07-25-2022 Ferritin [Mass/Vol] 89 ng/mL 26-388 [facility] Serum or plasma iron saturat ion measurement (mass fraction)Ordered By: Nelda Molina on 07-25-2022 Iron saturation [Mass fraction] 17.5 % 15.0-55.0 [facility] Absolute lymphocyte countOrd ered By: Dr. Plasencia on 07-20-2022 Lymphocytes Auto (Unsp spec) [#/Vol] 0.67 10*3/uL 0.83-4.51 [facility] Basophil percentageOrdered B y: Dr. Plasencia on 07-20-2022 Basophil percentage 127 mg/dL 74-106 [facility] Basophil percentage 6.5 g/dL 6.4-8.2 [facility] Basophil percentage 0.60 mg/dL 0.20-1.00 [facility] Basophil percentage 139 mmol/L 136-145 [facility] Basophil percentage 4.3 mmol/L 3.5-5.1 [facility] Basophil percentage 106 mmol/L 98-107 [facility] Basophils (Bld) [#/Vol] 8.4 10*3/uL 4.4-11.0 [facility] Basophils (Bld) [#/Vol] 7.4 10*3/uL 2.0-7.7 [facility] Basophils/100 WBC (Bld) 0.2 % 0-1 [facility] Basophils/100 WBC (Bld) 87.6 % 47-70 [facility] Basophils/100 WBC (Bld) 0.1 % 0-5 [facility] Bilirubin [Mass/Vol] 0.60 mg/dL 0.20-1.00 [facility] Comment on above: For patients on eltr ombopag therapy, use of Dimension [place] TBIL is not recommended. Chloride [Moles/Vol] 106 mmol/L 98-107 [facility] Eosinophils/100 WBC (Bld) 0.1 % 0-5 [facility] Glucose [Mass/Vol] 127 mg/dL 74-106 [facility] Comment on above: Fasting Glucose resu lt greater than or equal to 126 mg/dL suggests DIABETES MELLITUS per A.D.A. criteria. Neutrophils (Bld) [#/Vol] 7.4 10*3/uL 2.0-7.7 [facility] Neutrophils/100 WBC (Bld) 87.6 % 47-70 [facility] Potassium [Moles/Vol] 4.3 mmol/L 3.5-5.1 [facility] Protein [Mass/Vol] 6.5 g/dL 6.4-8.2 [facility] Sodium [Moles/Vol] 139 mmol/L 136-145 [facility] WBC (Bld) [#/Vol] 8.4 10*3/uL 4.4-11.0 [facility] Blood erythrocytes count (nu mber/volume)Ordered By: Dr. Plasencia on 07-20-2022 RBC (Bld) [#/Vol] 3.76 10*6/uL 4.6-6.2 [facility] Blood hemoglobin measurement (mass/volume)Ordered By: Dr. Plasencia on 07-20-2022 Hemoglobin (Bld) [Mass/Vol] 11.6 g/dL 13.0-16.5 [facility] Blood lymphocytes/100 leukoc ytesOrdered By: Dr. Plasencia on 07-20-2022 Lymphocytes/100 WBC (Bld) 8.0 % 19-41 [facility] Blood monocytes/100 leukocyt esOrdered By: Dr. Plasencia on 07-20-2022 Monocytes/100 WBC (Bld) 3.7 % 0-10 [facility] Blood platelet mean volumeOr dered By: Dr. Plasencia on 07-20-2022 Platelet mean volume (Bld) [Entitic vol] 9.8 fL 6.2-12.0 [facility] Determination of erythrocyte mean corpuscular volume (MCV)Ordered By: Dr. Plasencia on 07-20-2022 MCV (RBC) [Entitic vol] 99.2 fL 80-94 [facility] Hematocrit Auto (Bld) [Volum e fraction]Ordered By: Dr. Plasencia on 07-20-2022 Hematocrit (Bld) [Volume fraction] 37.3 % 40-54 [facility] Laboratory - Chemistry and C hemistry - challengeOrdered By: Dr. Plasencia on 07-20-2022 ALP [Catalytic activity/Vol] 84 U/L 45-117 [facility] ALT [Catalytic activity/Vol] 33 U/L 16-61 [facility] CO2 [Moles/Vol] 30.0 mmol/L 21.0-32.0 [facility] Globulin (S) [Mass/Vol] 3.1 g/dL 2.2-4.2 [facility] Urea nitrogen/Creatinine [Mass ratio] 16.7 mg/mg 10-20 [facility] Laboratory - Hematology and Cell countsOrdered By: Dr. Plasencia on 07-20-2022 Erythrocyte distribution width (RBC) [Entitic vol] 53.8 fL 35.1-43.9 [facility] Erythrocyte distribution width (RBC) [Ratio] 15.1 % 11.6-14.6 [facility] Immature granulocytes/100 WBC (Bld) 0.400 % 0.0-0.9 [facility] Comment on above: IG% - Immature Granu locytes (promyelocytes, myelocytes and metamyelocytes) > 1% indicates that a LEFT SHIFT is Present. MCH (RBC) [Entitic mass] 30.9 pg 27.0-32.0 [facility] Nucleated RBC/100 WBC (Bld) [Ratio] 0 % 0-5 [facility] MCHC Auto (RBC) [Mass/Vol]Or dered By: Dr. Plasencia on 07-20-2022 MCHC (RBC) [Mass/Vol] 31.1 g/dL 32-36 [facility] No Panel InformationOrdered By: Dr. Plasencia on 07-20-2022 Estimated GFR (MDRD) Amer 85 mL/min >60 [facility] Comment on above: GFR Calc Estimated GFR (MDRD) Non-Af Amer 70 mL/min >60 [facility] Comment on above: Non- GFR Calc 30.9 pg 27.0-32.0 [facility] 15.1 % 11.6-14.6 [facility] 53.8 fl 35.1-43.9 [facility] 0.400 % 0.0-0.9 [facility] 0 % 0-5 [facility] 70 mL/min >60 [facility] 85 mL/min >60 [facility] 16.7 RATIO 10-20 [facility] 3.1 g/dL 2.2-4.2 [facility] 84 U/L 45-117 [facility] 33 U/L 16-61 [facility] 30.0 mmol/L 21.0-32.0 [facility] Platelets bldOrdered By: Dr. Plasencia on 07-20-2022 Platelets (Bld) [#/Vol] 240 10*3/uL 150-450 [facility] Serum or plasma albumin lenka urement (mass/volume)Ordered By: Dr. Plasencia on 07-20-2022 Albumin [Mass/Vol] 3.4 g/dL 3.2-5.0 [facility] Serum or plasma albumin/glob ulin mass ratioOrdered By: Dr. Plasencia on 07-20-2022 Albumin/Globulin [Mass ratio] 1.1 {ratio} 0.9-2.4 [facility] Serum or plasma calcium lenka urement (mass/volume)Ordered By: Dr. Plasenica on 07-20-2022 Calcium [Mass/Vol] 8.4 mg/dL 8.5-10.1 [facility] Serum or plasma creatinine m easurement (mass/volume)Ordered By: Dr. Plasencia on 07-20-2022 Creatinine [Mass/Vol] 1.08 mg/dL 0.70-1.30 [facility] Comment on above: The validity of the calculated GFR & GFRAA in patients over 70 years has not been determined. Clinical correlation is essential. Serum or plasma urea nitroge n measurement (mass/volume)Ordered By: Dr. Plasencia on 07-20-2022 Urea nitrogen [Mass/Vol] 18 mg/dL 7-18 [facility] Thin prep Papanicolaou smear with manual screeningOrdered By: Dr. Plasencia on 07-20-2022 Thin prep Papanicolaou smear with manual screening 28 U/L 15-37 [facility] Thin prep Papanicolaou smear with manual screening 3 5-15 [facility] Absolute lymphocyte countOrd ered By: Dr. Roberts on 07-01-2022 Lymphocytes Auto (Unsp spec) [#/Vol] 1.07 10*3/uL 0.83-4.51 [facility] Basophil percentageOrdered B y: Dr. Roberts on 07-01-2022 Basophil percentage 88 mg/dL 74-106 [facility] Basophil percentage 6.5 g/dL 6.4-8.2 [facility] Basophil percentage 0.60 mg/dL 0.20-1.00 [facility] Basophil percentage 141 mmol/L 136-145 [facility] Basophil percentage 3.7 mmol/L 3.5-5.1 [facility] Basophil percentage 104 mmol/L 98-107 [facility] Basophils (Bld) [#/Vol] 5.3 10*3/uL 4.4-11.0 [facility] Basophils (Bld) [#/Vol] 3.4 10*3/uL 2.0-7.7 [facility] Basophils/100 WBC (Bld) 0.8 % 0-1 [facility] Basophils/100 WBC (Bld) 64.1 % 47-70 [facility] Basophils/100 WBC (Bld) 2.4 % 0-5 [facility] Bilirubin [Mass/Vol] 0.60 mg/dL 0.20-1.00 [facility] Comment on above: For patients on eltr ombopag therapy, use of Dimension [place] TBIL is not recommended. Chloride [Moles/Vol] 104 mmol/L 98-107 [facility] Eosinophils/100 WBC (Bld) 2.4 % 0-5 [facility] Glucose [Mass/Vol] 88 mg/dL 74-106 [facility] Neutrophils (Bld) [#/Vol] 3.4 10*3/uL 2.0-7.7 [facility] Neutrophils/100 WBC (Bld) 64.1 % 47-70 [facility] Potassium [Moles/Vol] 3.7 mmol/L 3.5-5.1 [facility] Protein [Mass/Vol] 6.5 g/dL 6.4-8.2 [facility] Sodium [Moles/Vol] 141 mmol/L 136-145 [facility] WBC (Bld) [#/Vol] 5.3 10*3/uL 4.4-11.0 [facility] Blood erythrocytes count (nu mber/volume)Ordered By: Dr. Roberts on 07-01-2022 RBC (Bld) [#/Vol] 3.57 10*6/uL 4.6-6.2 [facility] Blood hemoglobin measurement (mass/volume)Ordered By: Dr. Roberts on 07-01-2022 Hemoglobin (Bld) [Mass/Vol] 11.2 g/dL 13.0-16.5 [facility] Blood lymphocytes/100 leukoc ytesOrdered By: Dr. Roberts on 07-01-2022 Lymphocytes/100 WBC (Bld) 20.1 % 19-41 [facility] Blood monocytes/100 leukocyt esOrdered By: Dr. Roberts on 07-01-2022 Monocytes/100 WBC (Bld) 12.4 % 0-10 [facility] Blood platelet mean volumeOr dered By: Dr. Roberts on 07-01-2022 Platelet mean volume (Bld) [Entitic vol] 9.6 fL 6.2-12.0 [facility] Determination of erythrocyte mean corpuscular volume (MCV)Ordered By: Dr. Roberts on 07-01-2022 MCV (RBC) [Entitic vol] 101.7 fL 80-94 [facility] Hematocrit Auto (Bld) [Volum e fraction]Ordered By: Dr. Roberts on 07-01-2022 Hematocrit (Bld) [Volume fraction] 36.3 % 40-54 [facility] Laboratory - Chemistry and C hemistry - challengeOrdered By: Dr. Roberts on 07-01-2022 ALP [Catalytic activity/Vol] 72 U/L 45-117 [facility] ALT [Catalytic activity/Vol] 26 U/L 16-61 [facility] CO2 [Moles/Vol] 30.0 mmol/L 21.0-32.0 [facility] Globulin (S) [Mass/Vol] 3.4 g/dL 2.2-4.2 [facility] Urea nitrogen/Creatinine [Mass ratio] 15.0 mg/mg 10-20 [facility] Laboratory - Hematology and Cell countsOrdered By: Dr. Roberts on 07-01-2022 Erythrocyte distribution width (RBC) [Entitic vol] 54.1 fL 35.1-43.9 [facility] Erythrocyte distribution width (RBC) [Ratio] 14.6 % 11.6-14.6 [facility] Immature granulocytes/100 WBC (Bld) 0.200 % 0.0-0.9 [facility] Comment on above: IG% - Immature Granu locytes (promyelocytes, myelocytes and metamyelocytes) > 1% indicates that a LEFT SHIFT is Present. MCH (RBC) [Entitic mass] 31.4 pg 27.0-32.0 [facility] Nucleated RBC/100 WBC (Bld) [Ratio] 0 % 0-5 [facility] MCHC Auto (RBC) [Mass/Vol]Or dered By: Dr. Roberts on 07-01-2022 MCHC (RBC) [Mass/Vol] 30.9 g/dL 32-36 [facility] No Panel InformationOrdered By: Dr. Roberts on 07-01-2022 Estimated GFR (MDRD) Amer 120 mL/min >60 [facility] Comment on above: GFR Calc Estimated GFR (MDRD) Non-Af Amer 99 mL/min >60 [facility] Comment on above: Non- GFR Calc 31.4 pg 27.0-32.0 [facility] 14.6 % 11.6-14.6 [facility] 54.1 fl 35.1-43.9 [facility] 0.200 % 0.0-0.9 [facility] 0 % 0-5 [facility] 99 mL/min >60 [facility] 120 mL/min >60 [facility] 15.0 RATIO 10-20 [facility] 3.4 g/dL 2.2-4.2 [facility] 72 U/L 45-117 [facility] 26 U/L 16-61 [facility] 30.0 mmol/L 21.0-32.0 [facility] Platelets bldOrdered By: Dr. Roberts on 07-01-2022 Platelets (Bld) [#/Vol] 249 10*3/uL 150-450 [facility] Serum or plasma C reactive p rotein measurement (mass/volume)Ordered By: Dr. Roberts on 07-01-2022 CRP [Mass/Vol] 52.30 mg/L 0.0-3.0 [facility] Comment on above: C-Reactive Protein ( CRP) provides useful information for thediagnosis, therapy and monitoring of inflammatory processesand associated diseases. For the evaluation of Relative Riskfor Cardiovascular Disease, a High Sensitivity CRP (HSCRP)should be ordered. Serum or plasma albumin lenka urement (mass/volume)Ordered By: Dr. Roberts on 07-01-2022 Albumin [Mass/Vol] 3.1 g/dL 3.2-5.0 [facility] Serum or plasma albumin/glob ulin mass ratioOrdered By: Dr. Roberts on 07-01-2022 Albumin/Globulin [Mass ratio] 0.9 {ratio} 0.9-2.4 [facility] Serum or plasma calcium lenka urement (mass/volume)Ordered By: Dr. Roberts on 07-01-2022 Calcium [Mass/Vol] 8.6 mg/dL 8.5-10.1 [facility] Serum or plasma creatinine m easurement (mass/volume)Ordered By: Dr. Roberts on 07-01-2022 Creatinine [Mass/Vol] 0.80 mg/dL 0.70-1.30 [facility] Comment on above: The validity of the calculated GFR & GFRAA in patients over 70 years has not been determined. Clinical correlation is essential. Serum or plasma urea nitroge n measurement (mass/volume)Ordered By: Dr. Roberts on 07-01-2022 Urea nitrogen [Mass/Vol] 12 mg/dL 7-18 [facility] Thin prep Papanicolaou smear with manual screeningOrdered By: Dr. Roberts on 02-03-2023 Thin prep Papanicolaou smear with manual screening 20 U/L 15-37 [facility] Thin prep Papanicolaou smear with manual screening 7 5-15 [facility] Laboratory - Drug toxicology Ordered By: Dr. Rust on 06-14-2022 Amphetamines Ql (U) Negative <1000 ng/mL [facility] Benzodiazepines Ql (U) Negative < 200 ng/mL [facility] Cannabinoids Screen Ql (U) Negative < 50 ng/mL [facility] Cocaine Ql (U) Negative < 300 ng/mL [facility] Opiates Ql (U) Negative < 300 ng/mL [facility] No Panel InformationOrdered By: Dr. Rust on 06-14-2022 MDMA (Ecstasy) Screen Positive < 500 ng/mL [facility] Miscellaneous Test See comment [facility] Comment on above: TEST RESULT LIMITSTr amadol Positive Ujlain=127 Tramadol Conf,MS,UR 21761 ng/mL Uiccgh=100 ____ TESTING PERFORMED AT [facility]. ORIGINAL REPORT ON FILE IN LAB CONTAINS ADDITIONAL TEST SITE INFORMATION. Urine Barbiturates Screen Negative < 200 ng/mL [facility] Urine Drug Screen Comment [facility] Comment on above: CONFIRMATORY TESTING FOR ALL POSITIVE URINE DRUG SCREENRESULTS WILL ONLY BE SENT OUT UPON PHYSICIAN ORDER. VISTA Urine Drug Screen methods provide only preliminaryanalytical test results. A more specific alternate chemicalmethod must be used in order to obtain a confirmedanalytical result. Gas chromatography/mass spectrometery(GC/MS) is the preferred confirmatory method. Clinicalconsideration and professional judgement should be appliedto any drug of abuse test result, particularly whenpreliminary positive results are used. URINE TCA TESTING MUST BE ORDERED SEPARATELY. USE TESTMNEMONIC: [facility] Urine Methadone Screen Negative < 300 ng/mL [facility] Urine phencyclidine (PCP) de tectionOrdered By: Dr. Rust on 06-14-2022 Phencyclidine Ql (U) Negative < 25 ng/mL [facility] Absolute lymphocyte countOrd ered By: Nikunj Saul on 05-13-2022 Lymphocytes Auto (Unsp spec) [#/Vol] 0.75 10*3/uL 0.83-4.51 [facility] Basophil percentageOrdered B y: Nikunj Saul on 05-13-2022 Basophils/100 WBC (Bld) 0.3 % 0-1 [facility] Eosinophils/100 WBC (Bld) 0.1 % 0-5 [facility] Neutrophils (Bld) [#/Vol] 6.0 10*3/uL 2.0-7.7 [facility] Neutrophils/100 WBC (Bld) 82.9 % 47-70 [facility] WBC (Bld) [#/Vol] 7.2 10*3/uL 4.4-11.0 [facility] Blood erythrocytes count (nu mber/volume)Ordered By: Nikunj Saul on 05-13-2022 RBC (Bld) [#/Vol] 3.78 10*6/uL 4.6-6.2 [facility] Blood hemoglobin measurement (mass/volume)Ordered By: Nikunj Saul on 05-13-2022 Hemoglobin (Bld) [Mass/Vol] 12.8 g/dL 13.0-16.5 [facility] Blood lymphocytes/100 leukoc ytesOrdered By: Nikunj Saul on 05-13-2022 Lymphocytes/100 WBC (Bld) 10.4 % 19-41 [facility] Blood monocytes/100 leukocyt esOrdered By: Nikunj Saul on 05-13-2022 Monocytes/100 WBC (Bld) 6.0 % 0-10 [facility] Blood platelet mean volumeOr dered By: Nikunj Saul on 05-13-2022 Platelet mean volume (Bld) [Entitic vol] 9.5 fL 6.2-12.0 [facility] Determination of erythrocyte mean corpuscular volume (MCV)Ordered By: Nikunj Saul on 05-13-2022 MCV (RBC) [Entitic vol] 101.6 fL 80-94 [facility] Hematocrit Auto (Bld) [Volum e fraction]Ordered By: Nikunj Saul on 05-13-2022 Hematocrit (Bld) [Volume fraction] 38.4 % 40-54 [facility] Hemoglobin in reticulocytes (mass per reticulocyte)Ordered By: Nikunj Saul on 05-13-2022 Hemoglobin (Reticulocytes) [Entitic mass] 37.3 pg 30-35 [facility] Iron measurement (mass/mass) Ordered By: Nikunj Saul on 05-13-2022 Iron (Unsp spec) [Mass/Mass] 31 ug/dL 65-175 [facility] Laboratory - Hematology and Cell countsOrdered By: Nikunj Saul on 05-13-2022 Erythrocyte distribution width (RBC) [Entitic vol] 55.7 fL 35.1-43.9 [facility] Erythrocyte distribution width (RBC) [Ratio] 15.2 % 11.6-14.6 [facility] Immature granulocytes/100 WBC (Bld) 0.300 % 0.0-0.9 [facility] Comment on above: IG% - Immature Granu locytes (promyelocytes, myelocytes and metamyelocytes) > 1% indicates that a LEFT SHIFT is Present. MCH (RBC) [Entitic mass] 33.9 pg 27.0-32.0 [facility] Nucleated RBC/100 WBC (Bld) [Ratio] 0 % 0-5 [facility] MCHC Auto (RBC) [Mass/Vol]Or dered By: Nikunj Saul on 05-13-2022 MCHC (RBC) [Mass/Vol] 33.3 g/dL 32-36 [facility] No Panel InformationOrdered By: Nikunj Saul on 05-13-2022 Immature Reticulocyte Fraction 31.80 % 3.00-15.90 [facility] Reticulocyte Count 1.79 % 0.5-1.5 [facility] Total Iron Binding Capacity 316 ug/dL 250-450 [facility] Platelets bldOrdered By: Ezra Saul on 05-13-2022 Platelets (Bld) [#/Vol] 229 10*3/uL 150-450 [facility] Serum or plasma ferritin aditya surement (mass/volume)Ordered By: Nikunj Saul on 05-13-2022 Ferritin [Mass/Vol] 57 ng/mL 26-388 [facility] Serum or plasma iron saturat ion measurement (mass fraction)Ordered By: Nikunj Saul on 05-13-2022 Iron saturation [Mass fraction] 9.8 % 15.0-55.0 [facility] Absolute lymphocyte countOrd ered By: Dr. Plasencia on 04-08-2022 Lymphocytes Auto (Unsp spec) [#/Vol] 0.93 10*3/uL 0.83-4.51 [facility] Basophil percentageOrdered B y: Dr. Plasencia on 04-08-2022 Basophils/100 WBC (Bld) 0.3 % 0-1 [facility] Bilirubin [Mass/Vol] 0.30 mg/dL 0.20-1.00 [facility] Comment on above: For patients on eltr ombopag therapy, use of Dimension [place] TBIL is not recommended. Chloride [Moles/Vol] 103 mmol/L 98-107 [facility] Eosinophils/100 WBC (Bld) 0.1 % 0-5 [facility] Glucose [Mass/Vol] 110 mg/dL 74-106 [facility] Comment on above: Fasting Glucose resu lt from 100 to 125 mg/dL suggests IMPAIRED HOMEOSTASIS per A.D.A. criteria. Neutrophils (Bld) [#/Vol] 5.6 10*3/uL 2.0-7.7 [facility] Neutrophils/100 WBC (Bld) 80.1 % 47-70 [facility] Potassium [Moles/Vol] 4.6 mmol/L 3.5-5.1 [facility] Protein [Mass/Vol] 6.3 g/dL 6.4-8.2 [facility] Sodium [Moles/Vol] 137 mmol/L 136-145 [facility] WBC (Bld) [#/Vol] 7.0 10*3/uL 4.4-11.0 [facility] Blood erythrocytes count (nu mber/volume)Ordered By: Dr. Plasencia on 04-08-2022 RBC (Bld) [#/Vol] 3.80 10*6/uL 4.6-6.2 [facility] Blood hemoglobin measurement (mass/volume)Ordered By: Dr. Plasencia on 04-08-2022 Hemoglobin (Bld) [Mass/Vol] 12.6 g/dL 13.0-16.5 [facility] Blood lymphocytes/100 leukoc ytesOrdered By: Dr. Plasencia on 04-08-2022 Lymphocytes/100 WBC (Bld) 13.2 % 19-41 [facility] Blood monocytes/100 leukocyt esOrdered By: Dr. Plasencia on 04-08-2022 Monocytes/100 WBC (Bld) 6.0 % 0-10 [facility] Blood platelet mean volumeOr dered By: Dr. Plasencia on 04-08-2022 Platelet mean volume (Bld) [Entitic vol] 9.6 fL 6.2-12.0 [facility] Determination of erythrocyte mean corpuscular volume (MCV)Ordered By: Dr. Plasencia on 04-08-2022 MCV (RBC) [Entitic vol] 101.8 fL 80-94 [facility] Hematocrit Auto (Bld) [Volum e fraction]Ordered By: Dr. Plasencia on 04-08-2022 Hematocrit (Bld) [Volume fraction] 38.7 % 40-54 [facility] Laboratory - Chemistry and C hemistry - challengeOrdered By: Dr. Plasencia on 04-08-2022 ALP [Catalytic activity/Vol] 70 U/L 45-117 [facility] ALT [Catalytic activity/Vol] 34 U/L 16-61 [facility] CO2 [Moles/Vol] 30.0 mmol/L 21.0-32.0 [facility] Globulin (S) [Mass/Vol] 2.8 g/dL 2.2-4.2 [facility] Urea nitrogen/Creatinine [Mass ratio] 17.0 mg/mg 10-20 [facility] Laboratory - Hematology and Cell countsOrdered By: Dr. Plasencia on 04-08-2022 Erythrocyte distribution width (RBC) [Entitic vol] 58.3 fL 35.1-43.9 [facility] Erythrocyte distribution width (RBC) [Ratio] 15.6 % 11.6-14.6 [facility] Immature granulocytes/100 WBC (Bld) 0.300 % 0.0-0.9 [facility] Comment on above: IG% - Immature Granu locytes (promyelocytes, myelocytes and metamyelocytes) > 1% indicates that a LEFT SHIFT is Present. MCH (RBC) [Entitic mass] 33.2 pg 27.0-32.0 [facility] Nucleated RBC/100 WBC (Bld) [Ratio] 0 % 0-5 [facility] MCHC Auto (RBC) [Mass/Vol]Or dered By: Dr. Plasencia on 04-08-2022 MCHC (RBC) [Mass/Vol] 32.6 g/dL 32-36 [facility] No Panel InformationOrdered By: Dr. Plasencia on 04-08-2022 Estimated GFR (MDRD) Amer 93 mL/min >60 [facility] Comment on above: GFR Calc Estimated GFR (MDRD) Non-Af Amer 77 mL/min >60 [facility] Comment on above: Non- GFR Calc Platelets bldOrdered By: Dr. Plasencia on 04-08-2022 Platelets (Bld) [#/Vol] 209 10*3/uL 150-450 [facility] Serum or plasma albumin lenka urement (mass/volume)Ordered By: Dr. Plasencia on 04-08-2022 Albumin [Mass/Vol] 3.5 g/dL 3.2-5.0 [facility] Serum or plasma albumin/glob ulin mass ratioOrdered By: Dr. Plasencia on 04-08-2022 Albumin/Globulin [Mass ratio] 1.2 {ratio} 0.9-2.4 [facility] Serum or plasma calcium lenka urement (mass/volume)Ordered By: Dr. Plasencia on 04-08-2022 Calcium [Mass/Vol] 8.5 mg/dL 8.5-10.1 [facility] Serum or plasma creatinine m easurement (mass/volume)Ordered By: Dr. Plasencia on 04-08-2022 Creatinine [Mass/Vol] 1.00 mg/dL 0.70-1.30 [facility] Comment on above: The validity of the calculated GFR & GFRAA in patients over 70 years has not been determined. Clinical correlation is essential. Serum or plasma urea nitroge n measurement (mass/volume)Ordered By: Dr. Plasencia on 04-08-2022 Urea nitrogen [Mass/Vol] 17 mg/dL 7-18 [facility] Thin prep Papanicolaou smear with manual screeningOrdered By: Dr. Plasencia on 04-08-2022 Thin prep Papanicolaou smear with manual screening 25 U/L 15-37 [facility] Thin prep Papanicolaou smear with manual screening 4 5-15 [facility] Absolute lymphocyte counton 02-09-2022 Lymphocytes Auto (Unsp spec) [#/Vol] 1.02 10*3/uL 0.83-4.51 [facility] Work Phone: Basophil percentageon 2021 Basophils/100 WBC (Bld) 0.3 % 0-1 [facility] Work Phone: [phone] Bilirubin [Mass/Vol] 0.40 mg/dL 0.20-1.00 [facility] Work Phone: [phone] Comment on above: For patients on eltr ombopag therapy, use of Dimension [place] TBIL is not recommended. Chloride [Moles/Vol] 104 mmol/L 98-107 [facility] Work Phone: Eosinophils/100 WBC (Bld) 0.1 % 0-5 [facility] Work Phone: Glucose [Mass/Vol] 129 mg/dL 74-106 [facility] Work Phone: [phone] Comment on above: Fasting Glucose resu lt greater than or equal to 126 mg/dL suggests DIABETES MELLITUS per A.D.A. criteria. Neutrophils (Bld) [#/Vol] 5.6 10*3/uL 2.0-7.7 [facility] Work Phone: Neutrophils/100 WBC (Bld) 77.6 % 47-70 [facility] Work Phone: [phone] Potassium [Moles/Vol] 4.3 mmol/L 3.5-5.1 [facility] Work Phone: [phone] Protein [Mass/Vol] 6.4 g/dL 6.4-8.2 [facility] Work Phone: Sodium [Moles/Vol] 139 mmol/L 136-145 [facility] Work Phone: WBC (Bld) [#/Vol] 7.3 10*3/uL 4.4-11.0 [facility] Work Phone: Blood erythrocytes count (nu mber/volume)on 02-09-2022 RBC (Bld) [#/Vol] 3.90 10*6/uL 4.6-6.2 [facility] Work Phone: Blood hemoglobin measurement (mass/volume)on 02-09-2022 Hemoglobin (Bld) [Mass/Vol] 12.5 g/dL 13.0-16.5 [facility] Work Phone: Blood lymphocytes/100 leukoc yteson 02-09-2022 Lymphocytes/100 WBC (Bld) 14.0 % 19-41 [facility] Work Phone: Blood monocytes/100 leukocyt eson 02-09-2022 Monocytes/100 WBC (Bld) 7.7 % 0-10 [facility] Work Phone: Blood platelet mean volumeon 02-09-2022 Platelet mean volume (Bld) [Entitic vol] 9.7 fL 6.2-12.0 [facility] Work Phone: Determination of erythrocyte mean corpuscular volume (MCV)on 02-09-2022 MCV (RBC) [Entitic vol] 99.5 fL 80-94 [facility] Work Phone: Hematocrit Auto (Bld) [Volum e fraction]on 02-09-2022 Hematocrit (Bld) [Volume fraction] 38.8 % 40-54 [facility] Work Phone: Laboratory - Chemistry and C hemistry - challengeon 02-09-2022 ALP [Catalytic activity/Vol] 60 U/L 45-117 [facility] Work Phone: ALT [Catalytic activity/Vol] 29 U/L 16-61 [facility] Work Phone: CO2 [Moles/Vol] 27.0 mmol/L 21.0-32.0 [facility] Work Phone: Globulin (S) [Mass/Vol] 2.9 g/dL 2.2-4.2 [facility] Work Phone: Urea nitrogen/Creatinine [Mass ratio] 17.3 mg/mg 10-20 [facility] Work Phone: Laboratory - Hematology and Cell countson 02-09-2022 Erythrocyte distribution width (RBC) [Entitic vol] 61.7 fL 35.1-43.9 [facility] Work Phone: Erythrocyte distribution width (RBC) [Ratio] 16.8 % 11.6-14.6 [facility] Work Phone: Immature granulocytes/100 WBC (Bld) 0.300 % 0.0-0.9 [facility] Work Phone: Comment on above: IG% - Immature Granu locytes (promyelocytes, myelocytes and metamyelocytes) > 1% indicates that a LEFT SHIFT is Present. MCH (RBC) [Entitic mass] 32.1 pg 27.0-32.0 [facility] Work Phone: Nucleated RBC/100 WBC (Bld) [Ratio] 0 % 0-5 [facility] Work Phone: MCHC Auto (RBC) [Mass/Vol]on 02-09-2022 MCHC (RBC) [Mass/Vol] 32.2 g/dL 32-36 [facility] Work Phone: No Panel Informationon 02-09 Estimated GFR (MDRD) Amer 94 mL/min >60 [facility] Work Phone: Comment on above: GFR Calc Estimated GFR (MDRD) Non-Af Amer 78 mL/min >60 [facility] Work Phone: Comment on above: Non- GFR Calc Platelets bldon 02-09-2022 Platelets (Bld) [#/Vol] 191 10*3/uL 150-450 [facility] Work Phone: [phone] Serum or plasma albumin lenka urement (mass/volume)on 02-09-2022 Albumin [Mass/Vol] 3.5 g/dL 3.2-5.0 [facility] Work Phone: [phone] Serum or plasma albumin/glob ulin mass ratioon 02-09-2022 Albumin/Globulin [Mass ratio] 1.2 {ratio} 0.9-2.4 [facility] Work Phone: [phone] Serum or plasma calcium lenka urement (mass/volume)on 02-09-2022 Calcium [Mass/Vol] 8.4 mg/dL 8.5-10.1 [facility] Work Phone: [phone] Serum or plasma creatinine m easurement (mass/volume)on 02-09-2022 Creatinine [Mass/Vol] 0.98 mg/dL 0.70-1.30 [facility] Work Phone: Comment on above: The validity of the calculated GFR & GFRAA in patients over 70 years has not been determined. Clinical correlation is essential. Serum or plasma urea nitroge n measurement (mass/volume)on 02-09-2022 Urea nitrogen [Mass/Vol] 17 mg/dL 7-18 [facility] Work Phone: Thin prep Papanicolaou smear with manual screeningon 02-09-2022 Thin prep Papanicolaou smear with manual screening 22 U/L 15-37 [facility] Work Phone: Thin prep Papanicolaou smear with manual screening 8 5-15 [facility] Work Phone: [phone] Absolute lymphocyte counton 12-09-2021 Lymphocytes Auto (Unsp spec) [#/Vol] 0.89 10*3/uL 0.83-4.51 [facility] Work Phone: [phone] Basophil percentageon 2021 Basophils/100 WBC (Bld) 0.2 % 0-1 [facility] Work Phone: [phone] Bilirubin [Mass/Vol] 0.30 mg/dL 0.20-1.00 [facility] Work Phone: [phone] Comment on above: For patients on eltr ombopag therapy, use of Dimension [place] TBIL is not recommended. Chloride [Moles/Vol] 106 mmol/L 98-107 [facility] Work Phone: Eosinophils/100 WBC (Bld) 0.2 % 0-5 [facility] Work Phone: Glucose [Mass/Vol] 106 mg/dL 74-106 [facility] Work Phone: Comment on above: Fasting Glucose resu lt from 100 to 125 mg/dL suggests IMPAIRED HOMEOSTASIS per A.D.A. criteria. Neutrophils (Bld) [#/Vol] 4.9 10*3/uL 2.0-7.7 [facility] Work Phone: [phone] Neutrophils/100 WBC (Bld) 79.9 % 47-70 [facility] Work Phone: Potassium [Moles/Vol] 4.1 mmol/L 3.5-5.1 [facility] Work Phone: Protein [Mass/Vol] 6.7 g/dL 6.4-8.2 [facility] Work Phone: Sodium [Moles/Vol] 141 mmol/L 136-145 [facility] Work Phone: WBC (Bld) [#/Vol] 6.1 10*3/uL 4.4-11.0 [facility] Work Phone: Blood erythrocytes count (nu mber/volume)on 12-09-2021 RBC (Bld) [#/Vol] 4.15 10*6/uL 4.6-6.2 [facility] Work Phone: Blood hemoglobin measurement (mass/volume)on 12-09-2021 Hemoglobin (Bld) [Mass/Vol] 12.7 g/dL 13.0-16.5 [facility] Work Phone: Blood lymphocytes/100 leukoc yteson 12-09-2021 Lymphocytes/100 WBC (Bld) 14.6 % 19-41 [facility] Work Phone: Blood monocytes/100 leukocyt eson 12-09-2021 Monocytes/100 WBC (Bld) 4.8 % 0-10 [facility] Work Phone: Blood platelet mean volumeon 12-09-2021 Platelet mean volume (Bld) [Entitic vol] 9.8 fL 6.2-12.0 [facility] Work Phone: Determination of erythrocyte mean corpuscular volume (MCV)on 12-09-2021 MCV (RBC) [Entitic vol] 96.6 fL 80-94 [facility] Work Phone: Hematocrit Auto (Bld) [Volum e fraction]on 12-09-2021 Hematocrit (Bld) [Volume fraction] 40.1 % 40-54 [facility] Work Phone: [phone] Laboratory - Chemistry and C hemistry - challengeon 12-09-2021 ALP [Catalytic activity/Vol] 54 U/L 45-117 [facility] Work Phone: ALT [Catalytic activity/Vol] 26 U/L 16-61 [facility] Work Phone: CO2 [Moles/Vol] 29.0 mmol/L 21.0-32.0 [facility] Work Phone: Globulin (S) [Mass/Vol] 3.2 g/dL 2.2-4.2 [facility] Work Phone: Urea nitrogen/Creatinine [Mass ratio] 10.9 mg/mg 10-20 [facility] Work Phone: Laboratory - Hematology and Cell countson 12-09-2021 Erythrocyte distribution width (RBC) [Entitic vol] 62.3 fL 35.1-43.9 [facility] Work Phone: Erythrocyte distribution width (RBC) [Ratio] 17.8 % 11.6-14.6 [facility] Work Phone: Immature granulocytes/100 WBC (Bld) 0.300 % 0.0-0.9 [facility] Work Phone: Comment on above: IG% - Immature Granu locytes (promyelocytes, myelocytes and metamyelocytes) > 1% indicates that a LEFT SHIFT is Present. MCH (RBC) [Entitic mass] 30.6 pg 27.0-32.0 [facility] Work Phone: Nucleated RBC/100 WBC (Bld) [Ratio] 0 % 0-5 [facility] Work Phone: MCHC Auto (RBC) [Mass/Vol]on 12-09-2021 MCHC (RBC) [Mass/Vol] 31.7 g/dL 32-36 [facility] Work [facility]: No Panel Informationon 12-09 Estimated GFR (MDRD) Amer 92 mL/min >60 [facility] Work Phone: Comment on above: GFR Calc Estimated GFR (MDRD) Non-Af Amer 76 mL/min >60 [facility] Work Phone: Comment on above: Non- GFR Calc Platelets bldon 12-09-2021 Platelets (Bld) [#/Vol] 213 10*3/uL 150-450 [facility] Work Phone: Serum or plasma albumin lenka urement (mass/volume)on 12-09-2021 Albumin [Mass/Vol] 3.5 g/dL 3.2-5.0 [facility] Work Phone: Serum or plasma albumin/glob ulin mass ratioon 12-09-2021 Albumin/Globulin [Mass ratio] 1.1 {ratio} 0.9-2.4 [facility] Work Phone: Serum or plasma calcium lenka urement (mass/volume)on 12-09-2021 Calcium [Mass/Vol] 8.9 mg/dL 8.5-10.1 [facility] Work Phone: Serum or plasma creatinine m easurement (mass/volume)on 12-09-2021 Creatinine [Mass/Vol] 1.01 mg/dL 0.70-1.30 [facility] Work Phone: Comment on above: The validity of the calculated GFR & GFRAA in patients over 70 years has not been determined. Clinical correlation is essential. Serum or plasma urea nitroge n measurement (mass/volume)on 12-09-2021 Urea nitrogen [Mass/Vol] 11 mg/dL 7-18 [facility] Work Phone: Thin prep Papanicolaou smear with manual screeningon 12-09-2021 Thin prep Papanicolaou smear with manual screening 19 U/L 15-37 [facility] Work Phone: Thin prep Papanicolaou smear with manual screening 6 5-15 [facility] Work Phone: No Panel Informationon 10-31 SARS-CoV-2 & FLU Antigen (Rapid) SARS-CoV-2 (COVID 19) [facility] Work Phone: Absolute lymphocyte counton 09-13-2021 Lymphocytes Auto (Unsp spec) [#/Vol] 1.44 10*3/uL 0.83-4.51 [facility] Work Phone: Basophil percentageon 2021 Basophils/100 WBC (Bld) 0.7 % 0-1 [facility] Work Phone: Cholesterol [Mass/Vol] 152 mg/dL <200 [facility] Work Phone: Comment on above: <200 mg/dL Desirable 200-240 mg/dL Borderline >240 mg/dL High Risk Eosinophils/100 WBC (Bld) 3.9 % 0-5 [facility] Work Phone: [phone] Neutrophils (Bld) [#/Vol] 3.4 10*3/uL 2.0-7.7 [facility] Work Phone: [phone] Neutrophils/100 WBC (Bld) 58.7 % 47-70 [facility] Work Phone: Triglyceride [Mass/Vol] 76 mg/dL <199 [facility] Work Phone: Comment on above: The drugs N-Acetylcy steine and Metamizole may falsely depress this assay.Serum Triglycerides Reference Interval Normal <150 mg/dL Borderline high 150 - 199 mg/dL High 200 - 499 mg/dL Very High > or = 500 mg/dL WBC (Bld) [#/Vol] 5.8 10*3/uL 4.4-11.0 [facility] Work Phone: [phone] Blood erythrocytes count (nu mber/volume)on 09-13-2021 RBC (Bld) [#/Vol] 3.98 10*6/uL 4.6-6.2 [facility] Work Phone: [phone] Blood hemoglobin measurement (mass/volume)on 09-13-2021 Hemoglobin (Bld) [Mass/Vol] 12.2 g/dL 13.0-16.5 [facility] Work Phone: Blood lymphocytes/100 leukoc yteson 09-13-2021 Lymphocytes/100 WBC (Bld) 24.7 % 19-41 [facility] Work Phone: Blood monocytes/100 leukocyt eson 09-13-2021 Monocytes/100 WBC (Bld) 11.7 % 0-10 [facility] Work Phone: [phone] Blood platelet mean volumeon 09-13-2021 Platelet mean volume (Bld) [Entitic vol] 9.9 fL 6.2-12.0 [facility] Work Phone: Determination of erythrocyte mean corpuscular volume (MCV)on 09-13-2021 MCV (RBC) [Entitic vol] 95.7 fL 80-94 [facility] Work Phone: [phone] Erythrocyte sedimentation ra quinton 09-13-2021 ESR (Bld) [Velocity] 10 mm/h 0-20 [facility] Work Phone: [phone] Hematocrit Auto (Bld) [Volum e fraction]on 09-13-2021 Hematocrit (Bld) [Volume fraction] 38.1 % 40-54 [facility] Work Phone: Laboratory - Hematology and Cell countson 09-13-2021 Erythrocyte distribution width (RBC) [Entitic vol] 50.2 fL 35.1-43.9 [facility] Work Phone: Erythrocyte distribution width (RBC) [Ratio] 14.5 % 11.6-14.6 [facility] Work Phone: Immature granulocytes/100 WBC (Bld) 0.300 % 0.0-0.9 [facility] Work Phone: Comment on above: IG% - Immature Granu locytes (promyelocytes, myelocytes and metamyelocytes) > 1% indicates that a LEFT SHIFT is Present. MCH (RBC) [Entitic mass] 30.7 pg 27.0-32.0 [facility] Work Phone: Nucleated RBC/100 WBC (Bld) [Ratio] 0 % 0-5 [facility] Work Phone: MCHC Auto (RBC) [Mass/Vol]on 09-13-2021 MCHC (RBC) [Mass/Vol] 32.0 g/dL 32-36 [facility] Work Phone: No Panel Informationon 09-13 Thyroid Stimulating Hormone (TSH) 2.19 uIU/mL 0.358-3.74 [facility] Work Phone: Platelets bldon 09-13-2021 Platelets (Bld) [#/Vol] 199 10*3/uL 150-450 [facility] Work Phone: Serum or plasma cholesterol in HDL measurement (mass/volume)on 09-13-2021 Cholesterol in HDL [Mass/Vol] 86 mg/dL >40 [facility] Work Phone: Comment on above: The drugs N-Acetylcy steine and Metamizole may falsely depress this assay. Reference Range HDL <40 mg/dL Low HDL Cholesterol HDL >or= 60 mg/dL High HDL Cholesterol Serum or plasma cholesterol in VLDL measurement (mass/volume)on 09-13-2021 Cholesterol in VLDL [Mass/Vol] 15 mg/dL 5-40 [facility] Work Phone: Serum or plasma low density lipoprotein (LDL) cholesterol measurement (mass/volume)on 09-13-2021 Cholesterol in LDL [Mass/Vol] 51 mg/dL 0-130 [facility] Work Phone: [phone] Absolute lymphocyte counton 09-07-2021 Lymphocytes Auto (Unsp spec) [#/Vol] 0.32 10*3/uL 0.83-4.51 [facility] Work Phone: Basophil percentageon 2021 Basophils/100 WBC (Bld) 0.7 % 0-1 [facility] Work Phone: [phone] Bilirubin [Mass/Vol] 0.50 mg/dL 0.20-1.00 [facility] Work Phone: [phone] Comment on above: For patients on eltr ombopag therapy, use of Dimension [place] TBIL is not recommended. Chloride [Moles/Vol] 108 mmol/L 98-107 [facility] Work Phone: Eosinophils/100 WBC (Bld) 1.0 % 0-5 [facility] Work Phone: [phone] Glucose [Mass/Vol] 104 mg/dL 74-106 [facility] Work Phone: [phone] Comment on above: Fasting Glucose resu lt from 100 to 125 mg/dL suggests IMPAIRED HOMEOSTASIS per A.D.A. criteria. Neutrophils (Bld) [#/Vol] 5.2 10*3/uL 2.0-7.7 [facility] Work Phone: Neutrophils/100 WBC (Bld) 89.0 % 47-70 [facility] Work Phone: [phone] Potassium [Moles/Vol] 4.1 mmol/L 3.5-5.1 [facility] Work Phone: Protein [Mass/Vol] 6.5 g/dL 6.4-8.2 [facility] Work Phone: Sodium [Moles/Vol] 139 mmol/L 136-145 [facility] Work Phone: [phone] WBC (Bld) [#/Vol] 5.9 10*3/uL 4.4-11.0 [facility] Work Phone: Blood erythrocytes count (nu mber/volume)on 09-07-2021 RBC (Bld) [#/Vol] 3.51 10*6/uL 4.6-6.2 [facility] Work Phone: Blood hemoglobin measurement (mass/volume)on 09-07-2021 Hemoglobin (Bld) [Mass/Vol] 10.9 g/dL 13.0-16.5 [facility] Work Phone: Blood lymphocytes/100 leukoc yteson 09-07-2021 Lymphocytes/100 WBC (Bld) 5.4 % 19-41 [facility] Work Phone: Blood manual differential co mment interpretation (narrative result)on 09-07-2021 Manual differential comment Hiren (Bld) [Interp] SCANNED [facility] Work Phone: Comment on above: LYMPHOPENIA NOTED Blood monocytes/100 leukocyt eson 09-07-2021 Monocytes/100 WBC (Bld) 3.6 % 0-10 [facility] Work Phone: Blood platelet mean volumeon 09-07-2021 Platelet mean volume (Bld) [Entitic vol] 9.8 fL 6.2-12.0 [facility] Work Phone: Determination of erythrocyte mean corpuscular volume (MCV)on 09-07-2021 MCV (RBC) [Entitic vol] 95.7 fL 80-94 [facility] Work Phone: Hematocrit Auto (Bld) [Volum e fraction]on 09-07-2021 Hematocrit (Bld) [Volume fraction] 33.6 % 40-54 [facility] Work Phone: Laboratory - Chemistry and C hemistry - challengeon 09-07-2021 ALP [Catalytic activity/Vol] 60 U/L 45-117 [facility] Work Phone: ALT [Catalytic activity/Vol] 34 U/L 16-61 [facility] Work Phone: CO2 [Moles/Vol] 27.0 mmol/L 21.0-32.0 [facility] Work Phone: [phone] Globulin (S) [Mass/Vol] 3.1 g/dL 2.2-4.2 [facility] Work Phone: Urea nitrogen/Creatinine [Mass ratio] 13.9 mg/mg 10-20 [facility] Work Phone: Laboratory - Hematology and Cell countson 09-07-2021 Erythrocyte distribution width (RBC) [Entitic vol] 50.3 fL 35.1-43.9 [facility] Work Phone: [phone] Erythrocyte distribution width (RBC) [Ratio] 14.5 % 11.6-14.6 [facility] Work Phone: Immature granulocytes/100 WBC (Bld) 0.300 % 0.0-0.9 [facility] Work Phone: Comment on above: IG% - Immature Granu locytes (promyelocytes, myelocytes and metamyelocytes) > 1% indicates that a LEFT SHIFT is Present. MCH (RBC) [Entitic mass] 31.1 pg 27.0-32.0 [facility] Work Phone: Nucleated RBC/100 WBC (Bld) [Ratio] 0 % 0-5 [facility] Work Phone: MCHC Auto (RBC) [Mass/Vol]on 09-07-2021 MCHC (RBC) [Mass/Vol] 32.4 g/dL 32-36 [facility] Work Phone: No Panel Informationon 09-07 Estimated GFR (MDRD) Amer 92 mL/min >60 [facility] Work Phone: Comment on above: GFR Calc Estimated GFR (MDRD) Non-Af Amer 76 mL/min >60 [facility] Work Phone: Comment on above: Non- GFR Calc Platelets bldon 09-07-2021 Platelets (Bld) [#/Vol] 191 10*3/uL 150-450 [facility] Work Phone: Serum or plasma albumin lenka urement (mass/volume)on 09-07-2021 Albumin [Mass/Vol] 3.4 g/dL 3.2-5.0 [facility] Work Phone: Serum or plasma albumin/glob ulin mass ratioon 09-07-2021 Albumin/Globulin [Mass ratio] 1.1 {ratio} 0.9-2.4 [facility] Work Phone: Serum or plasma calcium lenka urement (mass/volume)on 09-07-2021 Calcium [Mass/Vol] 8.7 mg/dL 8.5-10.1 [facility] Work Phone: Serum or plasma creatinine m easurement (mass/volume)on 09-07-2021 Creatinine [Mass/Vol] 1.01 mg/dL 0.70-1.30 [facility] Work Phone: Comment on above: The validity of the calculated GFR & GFRAA in patients over 70 years has not been determined. Clinical correlation is essential. Serum or plasma urea nitroge n measurement (mass/volume)on 09-07-2021 Urea nitrogen [Mass/Vol] 14 mg/dL 7-18 [facility] Work Phone: Thin prep Papanicolaou smear with manual screeningon 09-07-2021 Thin prep Papanicolaou smear with manual screening 32 U/L 15-37 [facility] Work Phone: Thin prep Papanicolaou smear with manual screening 4 5-15 [facility] Work Phone: Absolute lymphocyte counton 08-02-2021 Lymphocytes Auto (Unsp spec) [#/Vol] 1.77 10*3/uL 0.83-4.51 [facility] Work Phone: Basophil percentageon 2021 Basophils/100 WBC (Bld) 0.7 % 0-1 [facility] Work Phone: Chloride [Moles/Vol] 107 mmol/L 98-107 [facility] Work Phone: Eosinophils/100 WBC (Bld) 2.5 % 0-5 [facility] Work Phone: Glucose [Mass/Vol] 97 mg/dL 74-106 [facility] Work Phone: Neutrophils (Bld) [#/Vol] 3.2 10*3/uL 2.0-7.7 [facility] Work Phone: Neutrophils/100 WBC (Bld) 54.0 % 47-70 [facility] Work Phone: Potassium [Moles/Vol] 3.7 mmol/L 3.5-5.1 [facility] Work [facility]: Sodium [Moles/Vol] 140 mmol/L 136-145 [facility] Work Phone: WBC (Bld) [#/Vol] 5.9 10*3/uL 4.4-11.0 [facility] Work Phone: Blood erythrocytes count (nu mber/volume)on 08-02-2021 RBC (Bld) [#/Vol] 3.52 10*6/uL 4.6-6.2 [facility] Work Phone: Blood hemoglobin measurement (mass/volume)on 08-02-2021 Hemoglobin (Bld) [Mass/Vol] 11.5 g/dL 13.0-16.5 [facility] Work Phone: Blood lymphocytes/100 leukoc yteson 08-02-2021 Lymphocytes/100 WBC (Bld) 29.9 % 19-41 [facility] Work Phone: Blood monocytes/100 leukocyt eson 08-02-2021 Monocytes/100 WBC (Bld) 12.7 % 0-10 [facility] Work Phone: Blood platelet mean volumeon 08-02-2021 Platelet mean volume (Bld) [Entitic vol] 9.4 fL 6.2-12.0 [facility] Work Phone: [phone] Determination of erythrocyte mean corpuscular volume (MCV)on 08-02-2021 MCV (RBC) [Entitic vol] 97.2 fL 80-94 [facility] Work Phone: [phone] Hematocrit Auto (Bld) [Volum e fraction]on 08-02-2021 Hematocrit (Bld) [Volume fraction] 34.2 % 40-54 [facility] Work Phone: [phone] Laboratory - Chemistry and C hemistry - challengeon 08-02-2021 CO2 [Moles/Vol] 27.0 mmol/L 21.0-32.0 [facility] Work Phone: [phone] Urea nitrogen/Creatinine [Mass ratio] 16.7 mg/mg 10-20 [facility] Work Phone: [phone] Laboratory - Hematology and Cell countson 08-02-2021 Erythrocyte distribution width (RBC) [Entitic vol] 53.1 fL 35.1-43.9 [facility] Work Phone: [phone] Erythrocyte distribution width (RBC) [Ratio] 15.1 % 11.6-14.6 [facility] Work Phone: [phone] Immature granulocytes/100 WBC (Bld) 0.200 % 0.0-0.9 [facility] Work Phone: [phone] Comment on above: IG% - Immature Granu locytes (promyelocytes, myelocytes and metamyelocytes) > 1% indicates that a LEFT SHIFT is Present. MCH (RBC) [Entitic mass] 32.7 pg 27.0-32.0 [facility] Work Phone: [phone] Nucleated RBC/100 WBC (Bld) [Ratio] 0 % 0-5 [facility] Work Phone: [phone] MCHC Auto (RBC) [Mass/Vol]on 08-02-2021 MCHC (RBC) [Mass/Vol] 33.6 g/dL 32-36 [facility] Work Phone: [phone] No Panel Informationon 08-02 Estimated Creatinine Clearance Calc 45.37 ml/min [facility] Work Phone: [phone] Estimated GFR (MDRD) Amer 85 mL/min >60 [facility] Work Phone: Comment on above: GFR Calc Estimated GFR (MDRD) Non-Af Amer 70 mL/min >60 [facility] Work Phone: Comment on above: Non- GFR Calc Platelets bldon 08-02-2021 Platelets (Bld) [#/Vol] 178 10*3/uL 150-450 [facility] Work Phone: Serum or plasma calcium lenka urement (mass/volume)on 08-02-2021 Calcium [Mass/Vol] 8.8 mg/dL 8.5-10.1 [facility] Work Phone: Serum or plasma creatinine m easurement (mass/volume)on 08-02-2021 Creatinine [Mass/Vol] 1.08 mg/dL 0.70-1.30 [facility] Work Phone: Comment on above: The validity of the calculated GFR & GFRAA in patients over 70 years has not been determined. Clinical correlation is essential. Serum or plasma urea nitroge n measurement (mass/volume)on 08-02-2021 Urea nitrogen [Mass/Vol] 18 mg/dL 7-18 [facility] Work Phone: Thin prep Papanicolaou smear with manual screeningon 08-02-2021 Thin prep Papanicolaou smear with manual screening 6 5-15 [facility] Work Phone: Absolute lymphocyte counton 06-23-2021 Lymphocytes Auto (Unsp spec) [#/Vol] 1.19 10*3/uL 0.83-4.51 [facility] Work Phone: Basophil percentageon 2021 Basophils/100 WBC (Bld) 0.4 % 0-1 [facility] Work Phone: Bilirubin [Mass/Vol] 0.40 mg/dL 0.20-1.00 [facility] Work Phone: Comment on above: For patients on eltr ombopag therapy, use of Dimension [place] TBIL is not recommended. Chloride [Moles/Vol] 103 mmol/L 98-107 [facility] Work Phone: Eosinophils/100 WBC (Bld) 0.2 % 0-5 [facility] Work Phone: Glucose [Mass/Vol] 142 mg/dL 74-106 [facility] Work Phone: Comment on above: Fasting Glucose resu lt greater than or equal to 126 mg/dL suggests DIABETES MELLITUS per A.D.A. criteria. Neutrophils (Bld) [#/Vol] 3.7 10*3/uL 2.0-7.7 [facility] Work Phone: Neutrophils/100 WBC (Bld) 70.2 % 47-70 [facility] Work Phone: Potassium [Moles/Vol] 4.2 mmol/L 3.5-5.1 [facility] Work Phone: Protein [Mass/Vol] 6.8 g/dL 6.4-8.2 [facility] Work Phone: Sodium [Moles/Vol] 139 mmol/L 136-145 [facility] Work Phone: WBC (Bld) [#/Vol] 5.2 10*3/uL 4.4-11.0 [facility] Work Phone: Blood erythrocytes count (nu mber/volume)on 06-23-2021 RBC (Bld) [#/Vol] 3.99 10*6/uL 4.6-6.2 [facility] Work Phone: Blood hemoglobin measurement (mass/volume)on 06-23-2021 Hemoglobin (Bld) [Mass/Vol] 12.6 g/dL 13.0-16.5 [facility] Work Phone: Blood lymphocytes/100 leukoc yteson 06-23-2021 Lymphocytes/100 WBC (Bld) 22.7 % 19-41 [facility] Work Phone: Blood monocytes/100 leukocyt eson 06-23-2021 Monocytes/100 WBC (Bld) 6.1 % 0-10 [facility] Work Phone: [phone] Blood platelet mean volumeon 06-23-2021 Platelet mean volume (Bld) [Entitic vol] 9.8 fL 6.2-12.0 [facility] Work Phone: [phone] Determination of erythrocyte mean corpuscular volume (MCV)on 06-23-2021 MCV (RBC) [Entitic vol] 99.0 fL 80-94 [facility] Work Phone: [phone] Hematocrit Auto (Bld) [Volum e fraction]on 06-23-2021 Hematocrit (Bld) [Volume fraction] 39.5 % 40-54 [facility] Work Phone: [phone] Laboratory - Chemistry and C hemistry - challengeon 06-23-2021 ALP [Catalytic activity/Vol] 86 U/L 45-117 [facility] Work Phone: [phone] ALT [Catalytic activity/Vol] 38 U/L 16-61 [facility] Work Phone: [phone] CO2 [Moles/Vol] 32.0 mmol/L 21.0-32.0 [facility] Work Phone: [phone] Globulin (S) [Mass/Vol] 3.3 g/dL 2.2-4.2 [facility] Work Phone: [phone] Urea nitrogen/Creatinine [Mass ratio] 13.1 mg/mg 10-20 [facility] Work Phone: [phone] Laboratory - Hematology and Cell countson 06-23-2021 Erythrocyte distribution width (RBC) [Entitic vol] 53.5 fL 35.1-43.9 [facility] Work Phone: [phone] Erythrocyte distribution width (RBC) [Ratio] 14.6 % 11.6-14.6 [facility] Work Phone: [phone] Immature granulocytes/100 WBC (Bld) 0.400 % 0.0-0.9 [facility] Work Phone: [phone] Comment on above: IG% - Immature Granu locytes (promyelocytes, myelocytes and metamyelocytes) > 1% indicates that a LEFT SHIFT is Present. MCH (RBC) [Entitic mass] 31.6 pg 27.0-32.0 [facility] Work Phone: Nucleated RBC/100 WBC (Bld) [Ratio] 0 % 0-5 [facility] Work Phone: MCHC Auto (RBC) [Mass/Vol]on 06-23-2021 MCHC (RBC) [Mass/Vol] 31.9 g/dL 32-36 [facility] Work Phone: No Panel Informationon 06-23 Estimated GFR (MDRD) Amer 103 mL/min >60 [facility] Work Phone: Comment on above: GFR Calc Estimated GFR (MDRD) Non-Af Amer 85 mL/min >60 [facility] Work Phone: Comment on above: Non- GFR Calc Platelets bldon 06-23-2021 Platelets (Bld) [#/Vol] 226 10*3/uL 150-450 [facility] Work Phone: Serum or plasma albumin lenka urement (mass/volume)on 06-23-2021 Albumin [Mass/Vol] 3.5 g/dL 3.2-5.0 [facility] Work Phone: Serum or plasma albumin/glob ulin mass ratioon 06-23-2021 Albumin/Globulin [Mass ratio] 1.1 {ratio} 0.9-2.4 [facility] Work Phone: Serum or plasma calcium lenka urement (mass/volume)on 06-23-2021 Calcium [Mass/Vol] 8.9 mg/dL 8.5-10.1 [facility] Work Phone: Serum or plasma creatinine m easurement (mass/volume)on 06-23-2021 Creatinine [Mass/Vol] 0.91 mg/dL 0.70-1.30 [facility] Work Phone: Comment on above: The validity of the calculated GFR & GFRAA in patients over 70 years has not been determined. Clinical correlation is essential. Serum or plasma urea nitroge n measurement (mass/volume)on 06-23-2021 Urea nitrogen [Mass/Vol] 12 mg/dL 7-18 [facility] Work Phone: Thin prep Papanicolaou smear with manual screeningon 06-23-2021 Thin prep Papanicolaou smear with manual screening 24 U/L 15-37 [facility] Work Phone: Thin prep Papanicolaou smear with manual screening 4 5-15 [facility] Work Phone: XR HIP 1V LTon 08-15-2020 XR HIP 1V LT Final Report DATE OF EXAM: Aug 15 2020 11:02AM [id number] - XR HIP 1V LT / PROCEDURE REASON: Bone pain, hip Physician Interpretation EXAMINATION: XR HIP 1V LT HISTORY: left hip/groin pain Bone pain, hip. TECHNIQUE: XR HIP 1V LT Laterality: LEFT Number of different views (projections): 1 M: XB_1 COMPARISON: RESULT: There is a single AP view of the left hip which demonstrates no evidence of fracture or dislocation. No significant acetabular joint space narrowing is seen. No other significant abnormality. IMPRESSION: Limited left hip radiograph demonstrates no acute abnormality. Further follow-up with cross-sectional imaging as clinical symptoms warrant. Java Programming Professor: PSCB Transcribe Date/Time: Aug 17 2020 7:37A Dictated by : TREY REARDON MD This examination was interpreted and the report reviewed and electronically signed by: TREY REARDON MD on Aug 17 2020 7:38AM EST Normal [facility] XR CHEST 1V FRONTALon 2020 XR CHEST 1V FRONTAL Final Report DATE OF EXAM: Aug 12 2020 9:36PM [id number] - XR CHEST 1V FRONTAL / PROCEDURE REASON: Chest pain or SOB, pleurisy or effusion suspected Physician Interpretation EXAMINATION: CHEST RADIOGRAPH (SINGLE VIEW AP OR PA) CLINICAL HISTORY: Chest pain or SOB, pleurisy or effusion suspected MQ: XC1_5 Comparison: Not available RESULT: Lines, tubes, and devices: None. Lungs and pleura: No consolidation. No lung mass. No pleural effusion. Cardiomediastinal silhouette: Normal cardiomediastinal silhouette. Other: Postsurgical changes are present within the right humeral head. There is complete loss of the subacromial space with subchondral sclerotic changes noted concerning for complete rotator cuff tear. IMPRESSION: No acute radiographic abnormality. Java Programming Professor: PSCB Transcribe Date/Time: Aug 12 2020 9:37P Dictated by : PABLO ANTON MD This examination was interpreted and the report reviewed and electronically signed by: PABLO ANTON MD on Aug 12 2020 9:39PM EST Normal [facility] No Panel Information SARS-CoV-2 & FLU Antigen (Rapid) SARS-CoV-2 (COVID 19) [facility] Work Phone: Vital Signs Date Time Vital Sign Value Performing Clinician Facility 03-19-2025 11:21-0400 Body height 152.[address] Jorge Hilton MD Work Phone: [facility] 03-19-2025 11:21-0400 Body mass index (BMI) [Ratio] 26.2 kg/m2 Dr. Jorge Hilton MD Work Phone: [facility] 03-19-2025 11:21-0400 Body weight 60.[address] Jorge Hilton MD Work Phone: [facility] 03-19-2025 11:21-0400 Diastolic blood pressure 61 mm[Hg] Dr. Jorge Hilton MD Work Phone: [facility] 03-19-2025 11:21-0400 Heart rate 60 /min Dr. Jorge Hilton MD Work Phone: [facility] 03-19-2025 11:21-0400 Respiratory rate 18 /min Dr. Jorge Hilton MD Work Phone: [facility] 03-19-2025 11:21-0400 SaO2% (BldA) [Mass fraction] 92 % Dr. Jorge Hilton MD Work Phone: [facility] 03-19-2025 11:21-0400 Systolic blood pressure 133 mm[Hg] Dr. Jorge Hilton MD Work Phone: [facility] 03-14-2025 15:46-0400 Body mass index (BMI) [Ratio] 27.3 kg/m2 Dr. Jorge Hilton MD Work Phone: 2(426)834-704310 [place] [address] 03-14-2025 15:46-0400 Body weight 63.[address] Jorge Hilton MD Work Phone: 8(805)534-560662 [place] [address] 03-14-2025 15:46-0400 Diastolic blood pressure 84 mm[Hg] Dr. Jorge Hilton MD Work Phone: 9(602)120-219762 [place] [address] 03-14-2025 15:46-0400 Heart rate 101 /min Dr. Jorge Hilton MD Work Phone: 4(923)340-633562 [place] [address] 03-14-2025 15:46-0400 SaO2% (BldA) [Mass fraction] 96 % Dr. Jorge Hilton MD Work Phone: 4(848)052-246262 [place] [address] 03-14-2025 15:46-0400 Systolic blood pressure 117 mm[Hg] Dr. Jorge Hilton MD Work Phone: 3(311)336-634162 [place] [address] 03-12-2025 16:58-0400 Diastolic blood pressure 50 mm[Hg] Dr. Jorge Hilton MD Work Phone: 5(730)116-423162 [place] [address] 03-12-2025 16:58-0400 Heart rate 57 /min Dr. Jorge Hilton MD Work Phone: 0(214)145-497162 [place] [address] 03-12-2025 16:58-0400 Respiratory rate 16 /min Dr. Jorge Hilton MD Work Phone: 3(012)354-027862 [place] [address] 03-12-2025 16:58-0400 Systolic blood pressure 102 mm[Hg] Dr. Jorge Hilton MD Work Phone: 3(153)745-305362 [place] [address] 03-12-2025 15:20-0400 Body mass index (BMI) [Ratio] 27.3 kg/m2 Dr. Jorge Hilton MD Work Phone: 0(804)431-025162 [place] [address] 03-12-2025 15:20-0400 Body temperature 97.1 [degF] Dr. Jorge Hilton MD Work Phone: 9(116)932-259562 [place] [address] 03-12-2025 15:20-0400 Body weight 63.[address] Jorge Hilton MD Work Phone: [facility] 03-12-2025 15:20-0400 SaO2% (BldA) [Mass fraction] 92 % Dr. Jorge Hilton MD Work Phone: [facility] 02-12-2025 10:35-0400 Body height 152.4 cm Feliberto Rosenthal MD Work Phone: [facility] Comment on above: patient reports 02-12-2025 10:35-0400 Body mass index (BMI) [Ratio] 27.15 kg/m2 Feliberto Rosenthal MD Work Phone: [facility] 02-12-2025 10:35-0400 Body weight 63.05 kg Feliberto Rosenthal MD Work Phone: [facility] Comment on above: fully clothed with shoes on 02-12-2025 10:35-0400 Diastolic blood pressure 70 mm[Hg] Feliberto Rosenthal MD Work Phone: [facility] 02-12-2025 10:35-0400 Heart rate 57 /min Feliberto Rosenthal MD Work Phone: [facility] 02-12-2025 10:35-0400 SaO2% (BldA) [Mass fraction] 99 % Feliberto Rosenthal MD Work Phone: [facility] 02-12-2025 10:35-0400 Systolic blood pressure 120 mm[Hg] Feliberto Rosenthal MD Work Phone: [facility] 01-10-2025 13:08-0400 Body temperature 97.3 [degF] Dr. Gloria Hazel MD Work Phone: [facility] 01-10-2025 13:08-0400 Diastolic blood pressure 58 mm[Hg] Dr. Gloria Hazel MD Work Phone: [facility] 01-10-2025 13:08-0400 Heart rate 54 /min Dr. Gloria Hazel MD Work Phone: [facility] 01-10-2025 13:08-0400 Respiratory rate 14 /min Dr. Gloria Hazel MD Work Phone: [facility] 01-10-2025 13:08-0400 SaO2% (BldA) [Mass fraction] 93 % Dr. Gloria Hazel MD Work Phone: [facility] 01-10-2025 13:08-0400 Systolic blood pressure 126 mm[Hg] Dr. Gloria Hazel MD Work Phone: [facility] 01-10-2025 11:54-0400 Body height 152.[address] Gloria Hazel MD Work Phone: [facility] 01-10-2025 11:54-0400 Body mass index (BMI) [Ratio] 27.8 kg/m2 Dr. Gloria Hazel MD Work Phone: [facility] 01-10-2025 11:54-0400 Body weight 64.[address] Gloria Hazel MD Work Phone: [facility] 01-08-2025 18:41-0400 Body temperature 98.6 [degF] Dr. Gloria Hazel MD Work Phone: [facility] 01-08-2025 18:41-0400 Diastolic blood pressure 70 mm[Hg] Dr. Gloria Hazel MD Work Phone: [facility] 01-08-2025 18:41-0400 Heart rate 61 /min Dr. Gloria Hazel MD Work Phone: [facility] 01-08-2025 18:41-0400 Respiratory rate 17 /min Dr. Gloria Hazel MD Work Phone: [facility] 01-08-2025 18:41-0400 SaO2% (BldA) [Mass fraction] 94 % Dr. Gloria Hazel MD Work Phone: [facility] 01-08-2025 18:41-0400 Systolic blood pressure 121 mm[Hg] Dr. Gloria Hazel MD Work Phone: [facility] 01-08-2025 15:50-0400 Body mass index (BMI) [Ratio] 26.9 kg/m2 Dr. Gloria Hazel MD Work Phone: 1(696)015-898910 [place] [address] 01-08-2025 15:50-0400 Body weight 62.[address] Gloria Hazel MD Work Phone: 4(480)625-726462 [place] [address] 01-08-2025 15:46-0400 Body height 152.[address] Gloria Hazel MD Work Phone: 1(786)734-699762 [place] [address] 12-12-2024 11:45-0400 Body height 154.[address] Gloria Hazel MD Work Phone: 6(091)559-909462 [place] [address] 12-12-2024 11:45-0400 Body mass index (BMI) [Ratio] 25.5 kg/m2 Dr. Gloria Hazel MD Work Phone: 0(613)241-215062 [place] [address] 12-12-2024 11:45-0400 Body temperature 98.4 [degF] Dr. Gloria Hazel MD Work Phone: 8(051)642-110962 [place] [address] 12-12-2024 11:45-0400 Body weight 61.[address] Gloria Hazel MD Work Phone: 3(738)781-705062 [place] [address] 12-12-2024 11:45-0400 Diastolic blood pressure 64 mm[Hg] Dr. Gloria Hazel MD Work Phone: 3(328)442-976610 [place] [address] 12-12-2024 11:45-0400 Heart rate 59 /min Dr. Gloria Hazel MD Work Phone: 0(760)375-092974 [address] 12-12-2024 11:45-0400 Respiratory rate 18 /min Dr. Gloria Hazel MD Work Phone: 6(619)309-080462 [place] [address] 12-12-2024 11:45-0400 SaO2% (BldA) [Mass fraction] 95 % Dr. Gloria Hazel MD Work Phone: 1(031)231-998510 [place] [address] 12-12-2024 11:45-0400 Systolic blood pressure 108 mm[Hg] Dr. Gloria Hazel MD Work Phone: [facility] 11-25-2024 15:24-0400 Body height 154.[address] Gloria Hazel MD Work Phone: 4(563)699-302710 [place] [address] 11-25-2024 15:24-0400 Body mass index (BMI) [Ratio] 26.4 kg/m2 Dr. Gloria Hazel MD Work Phone: 2(393)548-338410 [place] [address] 11-25-2024 15:24-0400 Body weight 63.[address] Gloria Hazel MD Work Phone: 8(491)080-192962 [place] [address] 11-05-2024 13:29-0400 Body temperature 97.8 [degF] Dr. Gloria Hazel MD Work Phone: 2(459)064-435462 [place] [address] 11-05-2024 13:29-0400 Body weight 63.[address] Gloria Hazel MD Work Phone: 6(391)897-193862 [place] [address] 11-05-2024 13:29-0400 Diastolic blood pressure 54 mm[Hg] Dr. Gloria Hazel MD Work Phone: 5(178)824-010274 [address] 11-05-2024 13:29-0400 Heart rate 62 /min Dr. Gloria Hazel MD Work Phone: 6(651)416-672962 [place] [address] 11-05-2024 13:29-0400 Respiratory rate 16 /min Dr. Gloria Hazel MD Work Phone: 4(449)827-854710 [place] [address] 11-05-2024 13:29-0400 SaO2% (BldA) [Mass fraction] 95 % Dr. Gloria Hazel MD Work Phone: 6(377)094-676010 [place] [address] 11-05-2024 13:29-0400 Systolic blood pressure 109 mm[Hg] Dr. Gloria Hazel MD Work Phone: 7(259)809-429962 [place] [address] 10-25-2024 12:57-0400 Diastolic blood pressure 57 mm[Hg] Dr. Gloria Hazel MD Work Phone: 5(279)665-479210 [place] [address] 10-25-2024 12:57-0400 Heart rate 51 /min Dr. Gloria Hazel MD Work Phone: [facility] 10-25-2024 12:57-0400 Respiratory rate 16 /min Dr. Gloria Hazel MD Work Phone: [facility] 10-25-2024 12:57-0400 SaO2% (BldA) [Mass fraction] 95 % Dr. Gloria Hazel MD Work Phone: [facility] 10-25-2024 12:57-0400 Systolic blood pressure 129 mm[Hg] Dr. Gloria Hazel MD Work Phone: 4(414)925-018910 [place] [address] 10-25-2024 11:34-0400 Body height 154.[address] Gloria Hazel MD Work Phone: 3(061)827-097410 [place] [address] 10-25-2024 11:34-0400 Body mass index (BMI) [Ratio] 26.1 kg/m2 Dr. Gloria Hazel MD Work Phone: 5(246)695-037410 [place] [address] 10-25-2024 11:34-0400 Body temperature 97.7 [degF] Dr. Gloria Hazel MD Work Phone: 1(074)264-934074 [address] 10-25-2024 11:34-0400 Body weight 62.[address] Gloria Hazel MD Work Phone: 2(235)729-357710 [place] [address] 10-23-2024 13:02-0400 Body mass index (BMI) [Ratio] 26.6 kg/m2 Dr. Gloria Hazel MD Work Phone: [facility] 10-23-2024 13:02-0400 Body weight 63.[address] Gloria Hazel MD Work Phone: [facility] 10-23-2024 13:02-0400 Diastolic blood pressure 59 mm[Hg] Dr. Gloria Hazel MD Work Phone: [facility] 10-23-2024 13:02-0400 Heart rate 57 /min Dr. Gloria Hazel MD Work Phone: [facility] 10-23-2024 13:02-0400 Respiratory rate 16 /min Dr. Gloria Hazel MD Work Phone: [facility] 10-23-2024 13:02-0400 Systolic blood pressure 105 mm[Hg] Dr. Gloria Hazel MD Work Phone: [facility] 09-26-2024 14:32-0400 Body height 154.[address] Gloria Hazel MD Work Phone: 3(996)458-862510 [place] [address] 09-26-2024 14:32-0400 Body mass index (BMI) [Ratio] 26 kg/m2 Dr. Gloria Hazel MD Work Phone: 5(096)282-377710 [place] [address] 09-26-2024 14:32-0400 Body weight 62.[address] Gloria Hazel MD Work Phone: 0(017)196-247010 [place] [address] 08-26-2024 16:27-0400 Diastolic blood pressure 48 mm[Hg] Dr. Gloria Hazel MD Work Phone: 7(321)844-739710 [place] [address] 08-26-2024 16:27-0400 Heart rate 67 /min Dr. Gloria Hazel MD Work Phone: 8(132)724-112810 [place] [address] 08-26-2024 16:27-0400 Systolic blood pressure 105 mm[Hg] Dr. Gloria Hazel MD Work Phone: 7(152)479-628010 [place] [address] 08-26-2024 15:01-0400 Body height 154.[address] Gloria Hazel MD Work Phone: 8(593)662-533910 [place] [address] 08-26-2024 15:01-0400 Body mass index (BMI) [Ratio] 25.3 kg/m2 Dr. Gloria Hazel MD Work Phone: 5(985)781-014510 [place] [address] 08-26-2024 15:01-0400 Body temperature 97.9 [degF] Dr. Gloria Hazel MD Work Phone: [facility] 08-26-2024 15:01-0400 Body weight 60.[address] Gloria Hazel MD Work Phone: 8(200)066-380710 [place] [address] 08-26-2024 15:01-0400 Respiratory rate 16 /min Dr. Gloria Hazel MD Work Phone: [facility] 08-26-2024 15:01-0400 SaO2% (BldA) [Mass fraction] 92 % Dr. Gloria Hazel MD Work Phone: 0(484)764-842210 [place] [address] 07-02-2024 16:11-0500 Body temperature 98 [degF] Dr. Gloria Hazel MD Work Phone: 7(083)887-666474 [address] 07-02-2024 16:11-0500 Diastolic blood pressure 52 mm[Hg] Dr. Gloria Hazel MD Work Phone: 7(799)454-251962 [place] [address] 07-02-2024 16:11-0500 Heart rate 62 /min Dr. Gloria Hazel MD Work Phone: 4(032)907-492774 [address] 07-02-2024 16:11-0500 Respiratory rate 16 /min Dr. Gloria Hazel MD Work Phone: 4(558)084-619410 [place] [address] 07-02-2024 16:11-0500 Systolic blood pressure 113 mm[Hg] Dr. Gloria Hazel MD Work Phone: 9(408)483-689074 [address] 07-02-2024 15:08-0500 Body mass index (BMI) [Ratio] 26.6 kg/m2 Dr. Gloria Hazel MD Work Phone: 2(977)677-805510 [place] [address] 07-02-2024 15:08-0500 Body weight 63.[address] Gloria Hazel MD Work Phone: 5(477)477-473010 [place] [address] 07-02-2024 15:08-0500 SaO2% (BldA) [Mass fraction] 95 % Dr. Gloria Hazel MD Work Phone: 9(319)569-522110 [place] [address] 05-09-2024 14:56-0500 Body temperature 97.1 [degF] Dr. Gloria Hazel MD Work Phone: 0(306)511-090210 [place] [address] 05-09-2024 14:56-0500 Diastolic blood pressure 50 mm[Hg] Dr. Gloria Hazel MD Work Phone: 0(909)542-577410 [place] [address] 05-09-2024 14:56-0500 Heart rate 53 /min Dr. Gloria Hazel MD Work Phone: [facility] 05-09-2024 14:56-0500 Respiratory rate 16 /min Dr. Gloria Hazel MD Work Phone: 7(081)921-277410 [place] [address] 05-09-2024 14:56-0500 SaO2% (BldA) [Mass fraction] 94 % Dr. lGoria Hazel MD Work Phone: 8(697)048-323210 [place] [address] 05-09-2024 14:56-0500 Systolic blood pressure 118 mm[Hg] Dr. Gloria Hazel MD Work Phone: 1(218)066-957810 [place] [address] 05-09-2024 13:20-0500 Body mass index (BMI) [Ratio] 25.9 kg/m2 Dr. Gloria Hazel MD Work Phone: 8(212)446-655210 [place] [address] 05-09-2024 13:20-0500 Body weight 62.[address] Gloria Hazel MD Work Phone: 4(005)477-628810 [place] [address] 09-25-2023 16:31-0400 Body temperature 97 [degF] Dr. Gloria Hazel Work Phone: 3(648)913-488074 [address] 09-25-2023 16:31-0400 Diastolic blood pressure 46 mm[Hg] Dr. Gloria Hazel Work Phone: 2(851)059-674510 [place] [address] 09-25-2023 16:31-0400 Heart rate 58 /min Dr. Gloria Hazel Work Phone: 5(915)948-075610 [place] [address] 09-25-2023 16:31-0400 Respiratory rate 16 /min Dr. Gloria Hazel Work Phone: 9(358)857-785510 [place] [address] 09-25-2023 16:31-0400 SaO2% (BldA) [Mass fraction] 94 % Dr. Gloria Hazel Work Phone: 3(757)205-448610 [place] [address] 09-25-2023 16:31-0400 Systolic blood pressure 101 mm[Hg] Dr. Gloria Hazel Work Phone: 8(454)900-877110 [place] [address] 09-25-2023 15:24-0400 Body height 154.[address] Gloria Hazel Work Phone: [facility] 09-25-2023 15:24-0400 Body mass index (BMI) [Ratio] 24.7 kg/m2 Dr. Gloria Hazel Work Phone: [facility] 09-25-2023 15:24-0400 Body weight 59.[address] Gloria Hazel Work Phone: [facility] 07-21-2023 16:15-0500 Body temperature 97.5 [degF] Dr. Gloria Hazel Work Phone: 7(736)609-269510 [place] [address] 07-21-2023 16:15-0500 Diastolic blood pressure 53 mm[Hg] Dr. Gloria Hazel Work Phone: 9(741)797-209810 [place] [address] 07-21-2023 16:15-0500 Heart rate 64 /min Dr. Gloria Hazel Work Phone: [facility] 07-21-2023 16:15-0500 Respiratory rate 16 /min Dr. Gloria Hazel Work Phone: [facility] 07-21-2023 16:15-0500 SaO2% (BldA) [Mass fraction] 93 % Dr. Gloria Hazel Work Phone: [facility] 07-21-2023 16:15-0500 Systolic blood pressure 98 mm[Hg] Dr. Gloria Hazel Work Phone: [facility] 07-21-2023 14:57-0500 Body height 154.[address] Gloria Hazel Work Phone: [facility] 07-21-2023 14:57-0500 Body mass index (BMI) [Ratio] 26.4 kg/m2 Dr. Gloria Hazel Work Phone: [facility] 07-21-2023 14:57-0500 Body weight 63.[address] Gloria Hazel Work Phone: 8(246)359-986862 [place] [address] 06-22-2023 10:26-0500 Body temperature 97.5 [degF] Dr. Gloria Hazel Work Phone: 0(641)705-906762 [place] [address] 06-22-2023 10:26-0500 Diastolic blood pressure 55 mm[Hg] Dr. Gloria Hazel Work Phone: 2(011)045-465762 [place] [address] 06-22-2023 10:26-0500 Heart rate 69 /min Dr. Gloria Hazel Work Phone: 8(530)484-937762 [place] [address] 06-22-2023 10:26-0500 Respiratory rate 16 /min Dr. Gloria Hazel Work Phone: 5(552)754-251862 [place] [address] 06-22-2023 10:26-0500 SaO2% (BldA) [Mass fraction] 94 % Dr. Gloria Hazel Work Phone: 4(540)444-481262 [place] [address] 06-22-2023 10:26-0500 Systolic blood pressure 114 mm[Hg] Dr. Gloria Hazel Work Phone: 3(107)585-241962 [place] [address] 06-22-2023 09:07-0500 Body height 154.[address] Gloria Hazel Work Phone: 0(317)732-629662 [place] [address] 06-22-2023 09:07-0500 Body mass index (BMI) [Ratio] 25.1 kg/m2 Dr. Gloria Hazel Work Phone: 1(051)144-666562 [place] [address] 06-22-2023 09:07-0500 Body weight 60.[address] Gloria Hazel Work Phone: 2(619)107-978162 [place] [address] 06-15-2023 15:35-0500 Body mass index (BMI) [Ratio] 25.5 kg/m2 Dr. Gloria Hazel Work Phone: 9(584)935-385262 [place] [address] 06-15-2023 15:35-0500 Body temperature 98.9 [degF] Dr. Gloria Hazel Work Phone: 0(443)135-410562 [place] [address] 06-15-2023 15:35-0500 Body weight 61.[address] Gloria Hazel Work Phone: 1(918)173-520962 [place] [address] 06-15-2023 15:35-0500 Diastolic blood pressure 78 mm[Hg] Dr. Gloria Hazel Work Phone: 6(721)894-029310 [place] [address] 06-15-2023 15:35-0500 Heart rate 78 /min Dr. Gloria Hazel Work Phone: 0(997)087-791610 [place] [address] 06-15-2023 15:35-0500 Respiratory rate 18 /min Dr. Gloria Hazel Work Phone: 3(423)330-628310 [place] [address] 06-15-2023 15:35-0500 SaO2% (BldA) [Mass fraction] 93 % Dr. Gloria Hazel Work Phone: 4(235)651-949762 [place] [address] 06-15-2023 15:35-0500 Systolic blood pressure 128 mm[Hg] Dr. Gloria Hazel Work Phone: 7(054)649-135562 [place] [address] 06-03-2023 15:51-0500 Body temperature 98.2 [degF] Dr. Gloria Hazel Work Phone: 4(136)203-383910 [place] [address] 06-03-2023 15:51-0500 Diastolic blood pressure 71 mm[Hg] Dr. Gloria Hazel Work Phone: 4(978)105-445562 [place] [address] 06-03-2023 15:51-0500 Heart rate 85 /min Dr. Gloria Hazel Work Phone: 8(560)855-569910 [place] [address] 06-03-2023 15:51-0500 Respiratory rate 18 /min Dr. Gloria Hazel Work Phone: 2(439)813-116710 [place] [address] 06-03-2023 15:51-0500 SaO2% (BldA) [Mass fraction] 94 % Dr. Gloria Hazel Work Phone: 1(715)403-279010 [place] [address] 06-03-2023 15:51-0500 Systolic blood pressure 105 mm[Hg] Dr. Gloria Hazel Work Phone: 2(346)321-680310 [place] [address] 06-03-2023 04:54-0500 Body mass index (BMI) [Ratio] 27.7 kg/m2 Dr. Gloria Hazel Work Phone: 1(298)055-177010 [place] [address] 06-03-2023 04:54-0500 Body weight 66.[address] Gloria Hazel Work Phone: [facility] 06-02-2023 10:07-0500 Inhaled oxygen flow rate 1 L/min Dr. Gloria Hazel Work Phone: [facility] 06-02-2023 09:48-0500 Body height 154.[address] Gloria Hazel Work Phone: [facility] 06-01-2023 10:54-0500 Diastolic blood pressure 78 mm[Hg] Dr. Gloria Hazel Work Phone: 7(737)093-975510 [place] [address] 06-01-2023 10:54-0500 Heart rate 74 /min Dr. Gloria Hazel Work Phone: 5(261)891-255910 [place] [address] 06-01-2023 10:54-0500 Inhaled oxygen flow rate 2 L/min Dr. Gloria Hazel Work Phone: [facility] 06-01-2023 10:54-0500 Respiratory rate 18 /min Dr. Gloria Hazel Work Phone: [facility] 06-01-2023 10:54-0500 SaO2% (BldA) [Mass fraction] 97 % Dr. Gloria Hazel Work Phone: [facility] 06-01-2023 10:54-0500 Systolic blood pressure 129 mm[Hg] Dr. Gloria Hazel Work Phone: [facility] 06-01-2023 06:54-0500 Body height 154.[address] Gloria Hazel Work Phone: [facility] 06-01-2023 06:54-0500 Body mass index (BMI) [Ratio] 27.8 kg/m2 Dr. Gloria Hazel Work Phone: [facility] 06-01-2023 06:54-0500 Body temperature 98.9 [degF] Dr. Gloria Hazel Work Phone: [facility] 06-01-2023 06:54-0500 Body weight 66.[address] Gloria Hazel Work Phone: [facility] 05-26-2023 15:49-0500 Body temperature 98.9 [degF] Dr. Gloria Hazel Work Phone: [facility] 05-26-2023 15:49-0500 Diastolic blood pressure 51 mm[Hg] Dr. Gloria Hazel Work Phone: [facility] 05-26-2023 15:49-0500 Heart rate 61 /min Dr. Gloria Hazel Work Phone: [facility] 05-26-2023 15:49-0500 Respiratory rate 16 /min Dr. Gloria Hazel Work Phone: [facility] 05-26-2023 15:49-0500 SaO2% (BldA) [Mass fraction] 94 % Dr. Gloria Hazel Work Phone: [facility] 05-26-2023 15:49-0500 Systolic blood pressure 97 mm[Hg] Dr. Gloria Hazel Work Phone: [facility] 05-26-2023 14:37-0500 Body height 154.[address] Gloria Hazel Work Phone: [facility] 05-26-2023 14:37-0500 Body mass index (BMI) [Ratio] 26.2 kg/m2 Dr. Gloria Hazel Work Phone: [facility] 05-26-2023 14:37-0500 Body weight 63.[address] Gloria Hazel Work Phone: [facility] 03-31-2023 16:34-0400 Body temperature 97.5 [degF] Dr. Gloria Hazel Work Phone: [facility] 03-31-2023 16:34-0400 Diastolic blood pressure 46 mm[Hg] Dr. Gloria Hazel Work Phone: [facility] 03-31-2023 16:34-0400 Heart rate 62 /min Dr. Gloria Hazel Work Phone: [facility] 03-31-2023 16:34-0400 Respiratory rate 16 /min Dr. Gloria Hazel Work Phone: [facility] 03-31-2023 16:34-0400 SaO2% (BldA) [Mass fraction] 95 % Dr. Gloria Hazel Work Phone: [facility] 03-31-2023 16:34-0400 Systolic blood pressure 102 mm[Hg] Dr. Gloria Hazel Work Phone: 1(130)782-715910 [place] [address] 03-31-2023 15:19-0400 Body height 154.[address] Gloria Hazel Work Phone: 8(687)711-724562 [place] [address] 03-31-2023 15:19-0400 Body mass index (BMI) [Ratio] 27.4 kg/m2 Dr. Gloria Hazel Work Phone: 0(402)947-334674 [address] 03-31-2023 15:19-0400 Body weight 65.[address] Gloria Hazel Work Phone: 9(763)739-703474 [address] 03-10-2023 14:00-0400 Body mass index (BMI) [Ratio] 25.9 kg/m2 Dr. Gloria Hazel Work Phone: 8(257)122-901910 [place] [address] 03-10-2023 14:00-0400 Body temperature 97.6 [degF] Dr. Gloria Hazel Work Phone: 5(109)285-080710 [place] [address] 03-10-2023 14:00-0400 Body weight 62.[address] Gloria Hazel Work Phone: 7(306)846-377510 [place] [address] 03-10-2023 14:00-0400 Diastolic blood pressure 68 mm[Hg] Dr. Gloria Hazel Work Phone: 4(437)902-077210 [place] [address] 03-10-2023 14:00-0400 Heart rate 70 /min Dr. Gloria Hazel Work Phone: 0(726)197-158410 [place] [address] 03-10-2023 14:00-0400 Respiratory rate 16 /min Dr. Gloria Hazel Work Phone: [facility] 03-10-2023 14:00-0400 SaO2% (BldA) [Mass fraction] 97 % Dr. Gloria Hazel Work Phone: [facility] 03-10-2023 14:00-0400 Systolic blood pressure 108 mm[Hg] Dr. Gloria Hazel Work Phone: [facility] 01-27-2023 15:30-0400 Body temperature 98.1 [degF] Dr. Gloria Hazel Work Phone: [facility] 01-27-2023 15:30-0400 Diastolic blood pressure 64 mm[Hg] Dr. Gloria Hazel Work Phone: [facility] 01-27-2023 15:30-0400 Heart rate 86 /min Dr. Gloria Hazel Work Phone: [facility] 01-27-2023 15:30-0400 Respiratory rate 18 /min Dr. Gloria Hazel Work Phone: [facility] 01-27-2023 15:30-0400 SaO2% (BldA) [Mass fraction] 92 % Dr. Gloria Hazel Work Phone: [facility] 01-27-2023 15:30-0400 Systolic blood pressure 112 mm[Hg] Dr. Gloria Hazel Work Phone: [facility] 01-25-2023 12:27-0400 Body height 154.[address] Gloria Hazel Work Phone: [facility] 01-25-2023 12:27-0400 Body weight 61.[address] Gloria Hazel Work Phone: [facility] 01-25-2023 11:35-0400 Inhaled oxygen flow rate 2 L/min Dr. Gloria Hazel Work Phone: [facility] 01-24-2023 12:00-0400 Body mass index (BMI) [Ratio] 25.4 kg/m2 Dr. Gloria Hazel Work Phone: [facility] 01-23-2023 21:44-0400 Inhaled oxygen concentration 21 % Dr. Gloria Hazel Work Phone: [facility] 01-21-2023 07:25-0400 Body height 154.[address] Gloria Hazel Work Phone: 3(904)259-117574 [address] 01-21-2023 07:25-0400 Body temperature 97.9 [degF] Dr. Gloria Hazel Work Phone: 5(116)388-696874 [address] 01-21-2023 07:25-0400 Diastolic blood pressure 73 mm[Hg] Dr. Gloria Hazel Work Phone: 6(118)696-674762 [place] [address] 01-21-2023 07:25-0400 Heart rate 67 /min Dr. Gloria Hazel Work Phone: 9(318)260-116874 [address] 01-21-2023 07:25-0400 Respiratory rate 18 /min Dr. Gloria Hazel Work Phone: 7(649)838-615574 [address] 01-21-2023 07:25-0400 SaO2% (BldA) [Mass fraction] 97 % Dr. Gloria Hazel Work Phone: 6(374)785-006274 [address] 01-21-2023 07:25-0400 Systolic blood pressure 126 mm[Hg] Dr. Gloria Hazel Work Phone: 9(669)119-579074 [address] 01-21-2023 06:50-0400 Inhaled oxygen flow rate 2 L/min Dr. Gloria Hazel Work Phone: 1(711)038-637074 [address] 01-21-2023 06:50-0400 SaO2% (BldA) [Mass fraction] 91 % Dr. Gloria Hazel Work Phone: 0(504)988-518874 [address] 01-21-2023 06:35-0400 Diastolic blood pressure 63 mm[Hg] Dr. Gloria Hazel Work Phone: 2(677)217-554374 [address] 01-21-2023 06:35-0400 Heart rate 81 /min Dr. Gloria Hazel Work Phone: [facility] 01-21-2023 06:35-0400 Respiratory rate 16 /min Dr. Gloria Hazel Work Phone: [facility] 01-21-2023 06:35-0400 Systolic blood pressure 129 mm[Hg] Dr. Gloria Hazel Work Phone: [facility] 01-20-2023 16:00-0400 Body temperature 98.1 [degF] Dr. Gloria Hazel Work Phone: [facility] 01-18-2023 14:43-0400 Body weight 61.[address] Gloria Hazel Work Phone: [facility] 01-17-2023 11:36-0400 Body mass index (BMI) [Ratio] 25.4 kg/m2 Dr. Gloria Hazel Work Phone: [facility] 01-06-2023 16:22-0400 Body temperature 98.6 [degF] Dr. Gloria Hazel Work Phone: [facility] 01-06-2023 16:22-0400 Diastolic blood pressure 59 mm[Hg] Dr. Gloria Hazel Work Phone: [facility] 01-06-2023 16:22-0400 Heart rate 65 /min Dr. Gloria Hazel Work Phone: [facility] 01-06-2023 16:22-0400 Inhaled oxygen flow rate 2 L/min Dr. Gloria Hazel Work Phone: [facility] 01-06-2023 16:22-0400 Respiratory rate 18 /min Dr. Gloria Hazel Work Phone: [facility] 01-06-2023 16:22-0400 SaO2% (BldA) [Mass fraction] 95 % Dr. Gloria Hazel Work Phone: [facility] 01-06-2023 16:22-0400 Systolic blood pressure 116 mm[Hg] Dr. Gloria Hazel Work Phone: [facility] 01-06-2023 03:19-0400 Body mass index (BMI) [Ratio] 27.5 kg/m2 Dr. Gloria Hazel Work Phone: [facility] 01-06-2023 03:19-0400 Body weight 63.[address] Gloria Hazel Work Phone: [facility] 01-04-2023 22:00-0400 Body temperature 97.9 [degF] Dr. Gloria Hazel Work Phone: [facility] 01-04-2023 22:00-0400 Diastolic blood pressure 55 mm[Hg] Dr. Gloria Hazel Work Phone: [facility] 01-04-2023 22:00-0400 Heart rate 80 /min Dr. Gloria Hazel Work Phone: [facility] 01-04-2023 22:00-0400 Inhaled oxygen flow rate 2 L/min Dr. Gloria Hazel Work Phone: [facility] 01-04-2023 22:00-0400 Respiratory rate 15 /min Dr. Gloria Hazel Work Phone: [facility] 01-04-2023 22:00-0400 SaO2% (BldA) [Mass fraction] 97 % Dr. Gloria Hazel Work Phone: [facility] 01-04-2023 22:00-0400 Systolic blood pressure 113 mm[Hg] Dr. Gloria Hazel Work Phone: [facility] 01-04-2023 18:20-0400 Body height 154.[address] Gloria Hazel Work Phone: [facility] 12-27-2022 17:56-0400 Body temperature 97.81 [degF] María Botello APRN.[employer] OFFICER Work Phone: [facility] 12-27-2022 17:56-0400 Diastolic blood pressure 66 mm[Hg] María Botello APRN.[employer] OFFICER Work Phone: [facility] 12-27-2022 17:56-0400 Heart rate 72 /min María Ayan VICE PRESIDENT OF RECRUITING.[employer]OM [employer]OTECTION OFFICER Work Phone: [facility] 12-27-2022 17:56-0400 Respiratory rate 16 /min María Ayan VICE PRESIDENT OF RECRUITING.[employer]OTECTION OFFICER Work Phone: [facility] 12-27-2022 17:56-0400 SaO2% (BldA) [Mass fraction] 95 % María Ayan VICE PRESIDENT OF RECRUITING.C[employer]OM [employer]OTECTION OFFICER Work Phone: [facility] 12-27-2022 17:56-0400 Systolic blood pressure 102 mm[Hg] María Ayan VICE PRESIDENT OF RECRUITING.[employer]OM [employer]OTECTION OFFICER Work Phone: [facility] 12-14-2022 15:09-0400 Body mass index (BMI) [Ratio] 27.6 kg/m2 Dr. Gloria Hazel Work Phone: [facility] 12-14-2022 15:09-0400 Body temperature 99 [degF] Dr. Gloria Hazel Work Phone: [facility] 12-14-2022 15:09-0400 Body weight 66.[address] Gloria Hazel Work Phone: [facility] 12-14-2022 15:09-0400 Diastolic blood pressure 59 mm[Hg] Dr. Gloria Hazel Work Phone: [facility] 12-14-2022 15:09-0400 Heart rate 78 /min Dr. Gloria Hazel Work Phone: [facility] 12-14-2022 15:09-0400 Respiratory rate 16 /min Dr. Gloria Hazel Work Phone: [facility] 12-14-2022 15:09-0400 SaO2% (BldA) [Mass fraction] 94 % Dr. Gloria Hazel Work Phone: [facility] 12-14-2022 15:09-0400 Systolic blood pressure 109 mm[Hg] Dr. Gloria Hazel Work Phone: 5(991)605-714762 [place] [address] 12-08-2022 10:54-0400 Body height 154.[address] Gloria Hazel Work Phone: 9(005)852-697262 [place] [address] 11-15-2022 16:43-0400 Body temperature 97.3 [degF] Dr. Gloria Hazel Work Phone: 4(959)480-137562 [place] [address] 11-15-2022 16:43-0400 Diastolic blood pressure 45 mm[Hg] Dr. Gloria Hazel Work Phone: 4(118)221-659462 [place] [address] 11-15-2022 16:43-0400 Heart rate 62 /min Dr. Gloria Hazel Work Phone: 3(986)434-347562 [place] [address] 11-15-2022 16:43-0400 Respiratory rate 16 /min Dr. Gloria Hazel Work Phone: 0(156)615-567262 [place] [address] 11-15-2022 16:43-0400 SaO2% (BldA) [Mass fraction] 93 % Dr. Gloria Hazel Work Phone: 7(465)519-886162 [place] [address] 11-15-2022 16:43-0400 Systolic blood pressure 94 mm[Hg] Dr. Gloria Hazel Work Phone: 3(007)031-315862 [place] [address] 11-15-2022 15:18-0400 Body height 154.[address] Gloria Hazel Work Phone: 3(571)600-082862 [place] [address] 11-15-2022 15:18-0400 Body mass index (BMI) [Ratio] 28.1 kg/m2 Dr. Gloria Hazel Work Phone: 3(678)552-523262 [place] [address] 11-15-2022 15:18-0400 Body weight 67.[address] Gloria Hazel Work Phone: 8(630)118-393562 [place] [address] 11-14-2022 10:18-0400 Body mass index (BMI) [Ratio] 28.6 kg/m2 Dr. Gloria Hazel Work Phone: 6(854)374-768362 [place] [address] 11-14-2022 10:18-0400 Body weight 68.[address] Gloria Hazel Work Phone: 3(621)107-539762 [place] [address] 11-14-2022 10:18-0400 Diastolic blood pressure 70 mm[Hg] Dr. Gloria Hazel Work Phone: [facility] 11-14-2022 10:18-0400 Heart rate 68 /min Dr. Gloria Hazel Work Phone: [facility] 11-14-2022 10:18-0400 Respiratory rate 18 /min Dr. Gloria Hazel Work Phone: [facility] 11-14-2022 10:18-0400 Systolic blood pressure 114 mm[Hg] Dr. Gloria Hazel Work Phone: [facility] 11-10-2022 15:25-0400 Body temperature 97.4 [degF] Dr. Gloria Hazel Work Phone: [facility] 11-10-2022 15:25-0400 Diastolic blood pressure 55 mm[Hg] Dr. Gloria Hazel Work Phone: [facility] 11-10-2022 15:25-0400 Heart rate 61 /min Dr. Gloria Hazel Work Phone: [facility] 11-10-2022 15:25-0400 Respiratory rate 16 /min Dr. Gloria Hazel Work Phone: [facility] 11-10-2022 15:25-0400 Systolic blood pressure 110 mm[Hg] Dr. Gloria Hazel Work Phone: [facility] 11-10-2022 14:47-0400 SaO2% (BldA) [Mass fraction] 95 % Dr. Gloria Hazel Work Phone: [facility] 10-22-2022 13:25-0400 Heart rate 85 /min Dr. Gloria Hazel Work Phone: [facility] 10-22-2022 13:25-0400 Respiratory rate 16 /min Dr. Gloria Hazel Work Phone: [facility] 10-22-2022 10:53-0400 Body temperature 97.8 [degF] Dr. Gloria Hazel Work Phone: [facility] 10-22-2022 10:53-0400 Diastolic blood pressure 45 mm[Hg] Dr. Gloria Hazel Work Phone: [facility] 10-22-2022 10:53-0400 Inhaled oxygen flow rate 1 L/min Dr. Gloria Hazel Work Phone: 4(612)079-180510 [place] [address] 10-22-2022 10:53-0400 SaO2% (BldA) [Mass fraction] 93 % Dr. Gloria Hazel Work Phone: 5(516)860-727010 [place] [address] 10-22-2022 10:53-0400 Systolic blood pressure 111 mm[Hg] Dr. Gloria Hazel Work Phone: 1(734)286-376710 [place] [address] 10-21-2022 11:19-0400 Body height 154.[address] Gloria Hazel Work Phone: 4(974)591-831610 [place] [address] 10-21-2022 11:19-0400 Body weight 69.[address] Gloria Hazel Work Phone: 4(614)261-991662 [place] [address] 10-21-2022 05:00-0400 Body mass index (BMI) [Ratio] 28.8 kg/m2 Dr. Gloria Hazel Work Phone: 6(676)189-043662 [place] [address] 10-19-2022 11:35-0400 Body mass index (BMI) [Ratio] 28.9 kg/m2 Dr. Gloria Hazel Work Phone: 8(324)881-357910 [place] [address] 10-19-2022 11:35-0400 Body temperature 97.6 [degF] Dr. Gloria Hazel Work Phone: 0(834)345-178474 [address] 10-19-2022 11:35-0400 Body weight 71.[address] Gloria Hazel Work Phone: 3(247)318-788910 [place] [address] 10-19-2022 11:35-0400 Diastolic blood pressure 67 mm[Hg] Dr. Gloria Hazel Work Phone: 7(841)792-863710 [place] [address] 10-19-2022 11:35-0400 Heart rate 67 /min Dr. Gloria Hazel Work Phone: [facility] 10-19-2022 11:35-0400 Respiratory rate 16 /min Dr. Gloria Hazel Work Phone: [facility] 10-19-2022 11:35-0400 SaO2% (BldA) [Mass fraction] 99 % Dr. Gloria Hazel Work Phone: [facility] 10-19-2022 11:35-0400 Systolic blood pressure 121 mm[Hg] Dr. Gloria Hazel Work Phone: [facility] 09-25-2022 14:37-0400 Body temperature 98.3 [degF] Dr. Gloria Hazel Work Phone: [facility] 09-25-2022 14:37-0400 Diastolic blood pressure 64 mm[Hg] Dr. Gloria Hazel Work Phone: [facility] 09-25-2022 14:37-0400 Heart rate 74 /min Dr. Gloria Hazel Work Phone: [facility] 09-25-2022 14:37-0400 Respiratory rate 15 /min Dr. Gloria Hazel Work Phone: [facility] 09-25-2022 14:37-0400 SaO2% (BldA) [Mass fraction] 93 % Dr. Gloria Hazel Work Phone: [facility] 09-25-2022 14:37-0400 Systolic blood pressure 128 mm[Hg] Dr. Gloria Hazel Work Phone: [facility] 09-25-2022 14:35-0400 Inhaled oxygen flow rate 93 L/min Dr. Gloria Hazel Work Phone: [facility] 09-25-2022 04:08-0400 Body mass index (BMI) [Ratio] 27.2 kg/m2 Dr. Gloria Hazel Work Phone: [facility] 09-25-2022 04:08-0400 Body weight 67.[address] Gloria Hazel Work Phone: [facility] 09-23-2022 15:28-0400 Body height 157.[address] Gloria Hazel Work Phone: [facility] 09-23-2022 09:59-0400 Body temperature 98.4 [degF] Dr. Gloria Hazel Work Phone: [facility] 09-23-2022 09:59-0400 Diastolic blood pressure 71 mm[Hg] Dr. Gloria Hazel Work Phone: [facility] 09-23-2022 09:59-0400 Heart rate 71 /min Dr. Gloria Hazel Work Phone: [facility] 09-23-2022 09:59-0400 Inhaled oxygen flow rate 2 L/min Dr. Gloria Hazel Work Phone: 9(589)498-685110 [address] [place] [address] 09-23-2022 09:59-0400 Respiratory rate 12 /min Dr. Gloria Hazel Work Phone: [facility] 09-23-2022 09:59-0400 SaO2% (BldA) [Mass fraction] 100 % Dr. Gloria Hazel Work Phone: [facility] 09-23-2022 09:59-0400 Systolic blood pressure 157 mm[Hg] Dr. Gloria Hazel Work Phone: [facility] 09-23-2022 07:11-0400 Body height 162.[address] Gloria Hazel Work Phone: [facility] 09-23-2022 07:11-0400 Body mass index (BMI) [Ratio] 27.1 kg/m2 Dr. Gloria Hazel Work Phone: [facility] 09-23-2022 07:11-0400 Body weight 71.[address] Gloria Hazel Work Phone: [facility] 09-21-2022 15:51-0400 Body height 160.[address] Gloria Hazel Work Phone: [facility] 09-21-2022 15:51-0400 Body mass index (BMI) [Ratio] 29.2 kg/m2 Dr. Gloria Hazel Work Phone: [facility] 09-21-2022 15:51-0400 Body temperature 98.9 [degF] Dr. Gloria Hazel Work Phone: [facility] 09-21-2022 15:51-0400 Body weight 75.[address] Gloria Hazel Work Phone: [facility] 09-21-2022 15:51-0400 Diastolic blood pressure 73 mm[Hg] Dr. Gloria Hazel Work Phone: [facility] 09-21-2022 15:51-0400 Heart rate 69 /min Dr. Gloria Hazel Work Phone: [facility] 09-21-2022 15:51-0400 Respiratory rate 16 /min Dr. Gloria Hazel Work Phone: [facility] 09-21-2022 15:51-0400 SaO2% (BldA) [Mass fraction] 96 % Dr. Gloria Hazel Work Phone: [facility] 09-21-2022 15:51-0400 Systolic blood pressure 127 mm[Hg] Dr. Gloria Hazel Work Phone: [facility] 09-20-2022 16:38-0400 Diastolic blood pressure 51 mm[Hg] Dr. Gloria Hazel Work Phone: [facility] 09-20-2022 16:38-0400 Heart rate 71 /min Dr. Gloria Hazel Work Phone: [facility] 09-20-2022 16:38-0400 Respiratory rate 16 /min Dr. Gloria Hazel Work Phone: [facility] 09-20-2022 16:38-0400 Systolic blood pressure 100 mm[Hg] Dr. Gloria Hazel Work Phone: [facility] 09-20-2022 15:28-0400 Body height 160.[address] Gloria Hazel Work Phone: [facility] 09-20-2022 15:28-0400 Body mass index (BMI) [Ratio] 29.2 kg/m2 Dr. Gloria Hazel Work Phone: [facility] 09-20-2022 15:28-0400 Body weight 75.[address] Gloria Hazel Work Phone: [facility] 09-20-2022 15:28-0400 SaO2% (BldA) [Mass fraction] 92 % Dr. Gloria Hazel Work Phone: 4(179)688-143710 [place] [address] 09-12-2022 16:02-0400 Body mass index (BMI) [Ratio] 29.9 kg/m2 Dr. Gloria Hazel Work Phone: 2(387)009-423610 [place] [address] 09-12-2022 16:02-0400 Body temperature 98.4 [degF] Dr. Gloria Hazel Work Phone: 3(568)649-699110 [place] [address] 09-12-2022 16:02-0400 Body weight 76.[address] Gloria Hazel Work Phone: [facility] 09-12-2022 16:02-0400 Diastolic blood pressure 66 mm[Hg] Dr. Gloria Hazel Work Phone: [facility] 09-12-2022 16:02-0400 Heart rate 79 /min Dr. Gloria Hazel Work Phone: [facility] 09-12-2022 16:02-0400 Respiratory rate 16 /min Dr. Gloria Hazel Work Phone: [facility] 09-12-2022 16:02-0400 SaO2% (BldA) [Mass fraction] 91 % Dr. Gloria Hazel Work Phone: [facility] 09-12-2022 16:02-0400 Systolic blood pressure 114 mm[Hg] Dr. Gloria Hazel Work Phone: [facility] 07-27-2022 16:45-0500 Body temperature 97.9 [degF] Dr. Gloria Hazel Work Phone: [facility] 07-27-2022 16:45-0500 Diastolic blood pressure 63 mm[Hg] Dr. Gloria Hazel Work Phone: [facility] 07-27-2022 16:45-0500 Heart rate 69 /min Dr. Gloria Hazel Work Phone: [facility] 07-27-2022 16:45-0500 Respiratory rate 16 /min Dr. Gloria Hazel Work Phone: [facility] 07-27-2022 16:45-0500 SaO2% (BldA) [Mass fraction] 93 % Dr. Gloria Hazel Work Phone: [facility] 07-27-2022 16:45-0500 Systolic blood pressure 124 mm[Hg] Dr. Gloria Hazel Work Phone: [facility] 07-27-2022 15:38-0500 Body height 160.[address] Gloria Hazel Work Phone: [facility] 07-27-2022 15:38-0500 Body mass index (BMI) [Ratio] 29.2 kg/m2 Dr. Gloria Hazel Work Phone: 2(509)323-590210 [place] [address] 07-27-2022 15:38-0500 Body weight 74.[address] Gloria Hazel Work Phone: [facility] 07-25-2022 15:37-0500 Body mass index (BMI) [Ratio] 28.3 kg/m2 Dr. Gloria Hazel Work Phone: [facility] 07-25-2022 15:37-0500 Body weight 72.[address] Gloria Hazel Work Phone: [facility] 07-25-2022 15:37-0500 Diastolic blood pressure 78 mm[Hg] Dr. Gloria Hazel Work Phone: [facility] 07-25-2022 15:37-0500 Heart rate 78 /min Dr. Gloria Hazel Work Phone: [facility] 07-25-2022 15:37-0500 SaO2% (BldA) [Mass fraction] 97 % Dr. Gloria Hazel Work Phone: [facility] 07-25-2022 15:37-0500 Systolic blood pressure 153 mm[Hg] Dr. Gloria Hazel Work Phone: [facility] 07-15-2022 15:15-0500 Body mass index (BMI) [Ratio] 28.3 kg/m2 Dr. Gloria Hazel Work Phone: [facility] 07-15-2022 15:15-0500 Body weight 72.[address] Gloria Hazel Work Phone: [facility] 07-15-2022 15:15-0500 Diastolic blood pressure 80 mm[Hg] Dr. Gloria Hazel Work Phone: [facility] 07-15-2022 15:15-0500 Heart rate 78 /min Dr. Gloria Hazel Work Phone: 7(307)368-336310 [place] [address] 07-15-2022 15:15-0500 Respiratory rate 18 /min Dr. Gloria Hazel Work Phone: [facility] 07-15-2022 15:15-0500 Systolic blood pressure 138 mm[Hg] Dr. Gloria Hazel Work Phone: [facility] 05-31-2022 16:23-0500 Body temperature 97.5 [degF] Dr. Gloria Hazel Work Phone: [facility] 05-31-2022 16:23-0500 Diastolic blood pressure 58 mm[Hg] Dr. Gloria Hazel Work Phone: [facility] 05-31-2022 16:23-0500 Heart rate 67 /min Dr. Gloria Hazel Work Phone: 4(280)519-159810 [place] [address] 05-31-2022 16:23-0500 Respiratory rate 16 /min Dr. Gloria Hazel Work Phone: 6(020)784-022462 [place] [address] 05-31-2022 16:23-0500 SaO2% (BldA) [Mass fraction] 94 % Dr. Gloria Hazel Work Phone: 7(559)366-328210 [place] [address] 05-31-2022 16:23-0500 Systolic blood pressure 112 mm[Hg] Dr. Gloria Hazel Work Phone: 9(260)360-569762 [place] [address] 05-31-2022 15:14-0500 Body weight 74.[address] Gloria Hazel Work Phone: 2(760)733-503162 [place] [address] 04-27-2022 15:43-0500 Body height 160.[address] Gloria Hazel Work Phone: 8(691)441-616862 [place] [address] 04-27-2022 15:43-0500 Body mass index (BMI) [Ratio] 28 kg/m2 Dr. Gloria Hazel Work Phone: 2(724)831-874662 [place] [address] 04-27-2022 15:43-0500 Body weight 71.[address] Gloria Hazel Work Phone: 8(197)448-058662 [place] [address] 04-27-2022 15:43-0500 Diastolic blood pressure 79 mm[Hg] Dr. Gloria Hazel Work Phone: 2(193)207-305362 [place] [address] 04-27-2022 15:43-0500 Heart rate 74 /min Dr. Gloria Hazel Work Phone: 1(211)186-793662 [place] [address] 04-27-2022 15:43-0500 SaO2% (BldA) [Mass fraction] 94 % Dr. Gloria Hazel Work Phone: 9(634)094-176562 [place] [address] 04-27-2022 15:43-0500 Systolic blood pressure 144 mm[Hg] Dr. Gloria Hazel Work Phone: 8(805)933-188674 [address] 04-04-2022 16:32-0500 Body temperature 98 [degF] Dr. Gloria Hazel Work Phone: 2(205)080-327274 [address] 04-04-2022 16:32-0500 Diastolic blood pressure 54 mm[Hg] Dr. Gloria Hazel Work Phone: [facility] 04-04-2022 16:32-0500 Heart rate 73 /min Dr. Gloria Hazel Work Phone: [facility] 04-04-2022 16:32-0500 Respiratory rate 14 /min Dr. Gloria Hazel Work Phone: [facility] 04-04-2022 16:32-0500 SaO2% (BldA) [Mass fraction] 95 % Dr. Gloria Hazel Work Phone: [facility] 04-04-2022 16:32-0500 Systolic blood pressure 106 mm[Hg] Dr. Gloria Hazel Work Phone: [facility] 04-04-2022 15:34-0500 Body height 160.[address] Gloria Hazel Work Phone: [facility] Work Phone: 04-04-2022 15:34-0500 Body mass index (BMI) [Ratio] 27.3 kg/m2 Dr. Gloria Hazel Work Phone: [facility] 04-04-2022 15:34-0500 Body weight 70.[address] Gloria Hazel Work Phone: [facility] 02-07-2022 16:03-0400 Body temperature 96.7 [degF] Dr. Gloria Hazel Work Phone: [facility] Work Phone: 02-07-2022 16:03-0400 Diastolic blood pressure 50 mm[Hg] Dr. Gloria Hazel Work Phone: [facility] Work Phone: 02-07-2022 16:03-0400 Heart rate 68 /min Dr. Gloria Hazel Work Phone: [facility] Work Phone: 02-07-2022 16:03-0400 Respiratory rate 16 /min Dr. Gloria Hazel Work Phone: [facility] Work Phone: 02-07-2022 16:03-0400 SaO2% (BldA) [Mass fraction] 94 % Dr. Gloria Hazel Work Phone: [facility] Work Phone: 02-07-2022 16:03-0400 Systolic blood pressure 116 mm[Hg] Dr. Gloria Hazel Work Phone: [facility] Work Phone: 02-07-2022 14:48-0400 Body height 160.[address] Gloria Hazel Work Phone: [facility] Work Phone: 02-07-2022 14:48-0400 Body mass index (BMI) [Ratio] 27.3 kg/m2 Dr. Gloria Hazel Work Phone: [facility] Work Phone: 02-07-2022 14:48-0400 Body weight 70.[address] Gloria Hazel Work Phone: [facility] Work Phone: 01-10-2022 13:40-0400 Body height 160.[address] Gloria Hazel Work Phone: [facility] Work Phone: 01-10-2022 13:40-0400 Body mass index (BMI) [Ratio] 27.6 kg/m2 Dr. Gloria Hazel Work Phone: [facility] Work Phone: 01-10-2022 13:40-0400 Body weight 70.[address] Gloria Hazel Work Phone: [facility] Work Phone: 01-10-2022 13:40-0400 Diastolic blood pressure 68 mm[Hg] Dr. Gloria Hazel Work Phone: [facility] Work Phone: 01-10-2022 13:40-0400 Heart rate 76 /min Dr. Gloria Hazel Work Phone: [facility] Work Phone: 01-10-2022 13:40-0400 Respiratory rate 16 /min Dr. Gloria Hazel Work Phone: [facility] Work Phone: 01-10-2022 13:40-0400 Systolic blood pressure 126 mm[Hg] Dr. Gloria Hazel Work Phone: [facility] Work Phone: 12-08-2021 15:56-0400 Diastolic blood pressure 51 mm[Hg] Dr. Gloria Hazel Work Phone: [facility] Work Phone: 12-08-2021 15:56-0400 Heart rate 66 /min Dr. Gloria Hazel Work Phone: [facility] Work Phone: 12-08-2021 15:56-0400 Systolic blood pressure 120 mm[Hg] Dr. Gloria Hazel Work Phone: [facility] Work Phone: 12-08-2021 14:40-0400 Body height 160.[address] Gloria Hazel Work Phone: [facility] Work Phone: 12-08-2021 14:40-0400 Body mass index (BMI) [Ratio] 26.7 kg/m2 Dr. Gloria Hazel Work Phone: [facility] Work Phone: 12-08-2021 14:40-0400 Body weight 68.[address] Gloria Hazel Work Phone: [facility] Work Phone: 12-08-2021 14:40-0400 Respiratory rate 12 /min Dr. Gloria Hazel Work Phone: [facility] Work Phone: 12-08-2021 14:40-0400 SaO2% (BldA) [Mass fraction] 96 % Dr. Gloria Hazel Work Phone: [facility] Work Phone: 10-31-2021 09:36-0400 Respiratory rate 16 /min Dr. Gloria Hazel Work Phone: [facility] Work Phone: 10-31-2021 08:37-0400 Body height 160.[address] Gloria Hazel Work Phone: [facility] Work Phone: 10-31-2021 08:37-0400 Body mass index (BMI) [Ratio] 26.3 kg/m2 Dr. Gloria Hazel Work Phone: [facility] Work Phone: 10-31-2021 08:37-0400 Body temperature 98.8 [degF] Dr. Gloria Hazel Work Phone: [facility] Work Phone: 10-31-2021 08:37-0400 Body weight 67.[address] Gloria Hazel Work Phone: [facility] Work Phone: 10-31-2021 08:37-0400 Diastolic blood pressure 75 mm[Hg] Dr. Gloria Hazel Work Phone: [facility] Work Phone: 10-31-2021 08:37-0400 Heart rate 83 /min Dr. Gloria Hazel Work Phone: [facility] Work Phone: 10-31-2021 08:37-0400 SaO2% (BldA) [Mass fraction] 97 % Dr. Gloria Hazel Work Phone: [facility] Work Phone: 10-31-2021 08:37-0400 Systolic blood pressure 136 mm[Hg] Dr. Gloria Hazel Work Phone: [facility] Work Phone: 10-27-2021 14:52-0400 Body temperature 99.3 [degF] Lucero Mcwilliams VICE PRESIDENT OF RECRUITING.CUSTOM PROTECTION OFFICER Work Phone: [facility] 10-27-2021 14:52-0400 Body weight 67.5 kg Lucero Mcwilliams VICE PRESIDENT OF RECRUITING.CUSTOM PROTECTION OFFICER Work Phone: [facility] 10-27-2021 14:52-0400 Diastolic blood pressure 70 mm[Hg] Lucero Mcwilliams VICE PRESIDENT OF RECRUITING.CUSTOM PROTECTION OFFICER Work Phone: [facility] 10-27-2021 14:52-0400 Heart rate 76 /min Lucero Mcwilliams VICE PRESIDENT OF RECRUITING.CUSTOM PROTECTION OFFICER Work Phone: [facility] 10-27-2021 14:52-0400 Respiratory rate 18 /min Lucero Mcwilliams VICE PRESIDENT OF RECRUITING.CUSTOM PROTECTION OFFICER Work Phone: [facility] 10-27-2021 14:52-0400 SaO2% (BldA) [Mass fraction] 97 % Lucero Mcwilliams VICE PRESIDENT OF RECRUITING.CUSTOM PROTECTION OFFICER Work Phone: [facility] 10-27-2021 14:52-0400 Systolic blood pressure 122 mm[Hg] Lucero Mcwilliams VICE PRESIDENT OF RECRUITING.CUSTOM PROTECTION OFFICER Work Phone: [facility] 09-27-2021 15:43-0400 Diastolic blood pressure 51 mm[Hg] Dr. Gloria Hazel Work Phone: [facility] Work Phone: 09-27-2021 15:43-0400 Heart rate 70 /min Dr. Gloria Hazel Work Phone: [facility] Work Phone: 09-27-2021 15:43-0400 Systolic blood pressure 101 mm[Hg] Dr. Gloria Hazel Work Phone: [facility] Work Phone: 09-27-2021 14:33-0400 Body mass index (BMI) [Ratio] 26.4 kg/m2 Dr. Gloria Hazel Work Phone: [facility] Work Phone: 09-27-2021 14:33-0400 Body temperature 97.8 [degF] Dr. Gloria Hazel Work Phone: [facility] Work Phone: 09-27-2021 14:33-0400 Body weight 67.[address] Gloria Hazel Work Phone: [facility] Work Phone: 09-27-2021 14:33-0400 Respiratory rate 16 /min Dr. Gloria Hazel Work Phone: [facility] Work Phone: 09-27-2021 14:33-0400 SaO2% (BldA) [Mass fraction] 96 % Dr. Gloria Hazel Work Phone: [facility] Work Phone: 08-09-2021 14:09-0400 Body temperature 98.4 [degF] Dr. Gloria Hazel Work Phone: [facility] Work Phone: 08-09-2021 14:09-0400 Diastolic blood pressure 43 mm[Hg] Dr. Gloria Hazel Work Phone: [facility] Work Phone: 08-09-2021 14:09-0400 Heart rate 72 /min Dr. Gloria Hazel Work Phone: [facility] Work Phone: 08-09-2021 14:09-0400 Respiratory rate 16 /min Dr. Gloria Hazel Work Phone: [facility] Work Phone: 08-09-2021 14:09-0400 SaO2% (BldA) [Mass fraction] 94 % Dr. Gloria Hazel Work Phone: [facility] Work Phone: 08-09-2021 14:09-0400 Systolic blood pressure 85 mm[Hg] Dr. Gloria Hazel Work Phone: [facility] Work Phone: 08-09-2021 13:12-0400 Body height 160.[address] Gloria Hazel Work Phone: [facility] Work Phone: 08-09-2021 13:12-0400 Body mass index (BMI) [Ratio] 26.1 kg/m2 Dr. Gloria Hazel Work Phone: [facility] Work Phone: 08-09-2021 13:12-0400 Body weight 66.[address] Gloria Hazel Work Phone: [facility] Work Phone: 08-02-2021 20:20-0500 Diastolic blood pressure 69 mm[Hg] Dr. Gloria Hazel Work Phone: [facility] Work Phone: 08-02-2021 20:20-0500 Heart rate 70 /min Dr. Gloria Hazel Work Phone: [facility] Work Phone: 08-02-2021 20:20-0500 Systolic blood pressure 126 mm[Hg] Dr. Gloria Hazel Work Phone: [facility] Work Phone: 08-02-2021 19:11-0500 Respiratory rate 15 /min Dr. Gloria Hazel Work Phone: [facility] Work Phone: 08-02-2021 19:11-0500 SaO2% (BldA) [Mass fraction] 96 % Dr. Gloria Hazel Work Phone: [facility] Work Phone: 08-02-2021 16:52-0500 Body mass index (BMI) [Ratio] 24.7 kg/m2 Dr. Gloria Hazel Work Phone: [facility] Work Phone: 08-02-2021 16:52-0500 Body temperature 97.3 [degF] Dr. Gloria Hazel Work Phone: [facility] Work Phone: 08-02-2021 16:52-0500 Body weight 63.[address] Gloria Hazel Work Phone: [facility] Work Phone: 07-26-2021 12:50-0500 Body temperature 97.9 [degF] Dr. Gloria Hazel Work Phone: [facility] Work Phone: 07-26-2021 12:50-0500 Diastolic blood pressure 67 mm[Hg] Dr. Gloria Hazel Work Phone: [facility] Work Phone: 07-26-2021 12:50-0500 Heart rate 61 /min Dr. Gloria Hazel Work Phone: [facility] Work Phone: 07-26-2021 12:50-0500 Respiratory rate 16 /min Dr. Gloria Hazel Work Phone: [facility] Work Phone: 07-26-2021 12:50-0500 SaO2% (BldA) [Mass fraction] 100 % Dr. Gloria Hazel Work Phone: [facility] Work Phone: 07-26-2021 12:50-0500 Systolic blood pressure 138 mm[Hg] Dr. Gloria Hazel Work Phone: [facility] Work Phone: 07-26-2021 11:01-0500 Body mass index (BMI) [Ratio] 24.5 kg/m2 Dr. Gloria Hazel Work Phone: [facility] Work Phone: 07-26-2021 11:01-0500 Body weight [address] Gloria Hazel Work Phone: [facility] Work Phone: 07-19-2021 12:20-0500 Body weight 66.[address] Gloria Hazel Work Phone: [facility] Work Phone: 07-19-2021 12:20-0500 Diastolic blood pressure 61 mm[Hg] Dr. Gloria Hazel Work Phone: [facility] Work Phone: 07-19-2021 12:20-0500 Heart rate 75 /min Dr. Gloria Hazel Work Phone: [facility] Work Phone: 07-19-2021 12:20-0500 Respiratory rate 14 /min Dr. Gloria Hazel Work Phone: [facility] Work Phone: 07-19-2021 12:20-0500 Systolic blood pressure 108 mm[Hg] Dr. Gloria Hazel Work Phone: [facility] Work Phone: 05-26-2021 14:54-0500 Body temperature 98.5 [degF] Dr. Gloria Hazel Work Phone: [facility] Work Phone: 05-26-2021 14:54-0500 Diastolic blood pressure 57 mm[Hg] Dr. Gloria Hazel Work Phone: [facility] Work Phone: 05-26-2021 14:54-0500 Heart rate 74 /min Dr. Gloria Hazel Work Phone: [facility] Work Phone: 05-26-2021 14:54-0500 Respiratory rate 16 /min Dr. Gloria Hazel Work Phone: [facility] Work Phone: 05-26-2021 14:54-0500 Systolic blood pressure 110 mm[Hg] Dr. Gloria Hazel Work Phone: [facility] Work Phone: 05-26-2021 13:34-0500 Body mass index (BMI) [Ratio] 25.2 kg/m2 Dr. Gloria Hazel Work Phone: [facility] Work Phone: 05-26-2021 13:34-0500 Body weight 64.[address] Gloria Hazel Work Phone: [facility] Work Phone: 05-26-2021 13:34-0500 SaO2% (BldA) [Mass fraction] 97 % Dr. Gloria Hazel Work Phone: [facility] Work Phone: 01-01-2021 15:51-0400 Body mass index (BMI) [Ratio] 23.3 kg/m2 Dr. Gloria Hazel Work Phone: [facility] Work Phone: Encounters Encounter Date Encounter Type Care Provider Facility Start: 04-01-2025 End: 04-01-2025 ambulatory MEGHANA FLOR Facility:[facility] Start: 03-19-2025 End: 03-19-2025 Salvatore Leonardo PREVENTION COORDINATOR-C -[facility] Work Phone: Start: 03-19-2025 End: 03-19-2025 ambulatory Salvatore Leonardo NP [place] Start: 03-14-2025 End: 03-14-2025 Dr. Jasbir Perez MD -[facility] Work Phone: Start: 03-14-2025 End: 03-14-2025 ambulatory Gloria Hazel Facility:[facility] Start: 03-12-2025 End: 03-12-2025 Dr. Dayana Plasencia MD -[facility] Work Phone: Start: 03-12-2025 End: 03-12-2025 ambulatory [facility] Facility:[facility] Start: 03-03-2025 End: 03-03-[address] Jorge Hilton MD Work Phone: -[facility] [place] Start: 03-03-2025 End: 03-03-2025 Dr. Dayana Plasencia MD -[facility] [place] Work Phone: Start: 03-03-2025 End: 03-03-2025 ambulatory [facility] Facility:[facility] Start: 02-25-2025 End: 02-26-2025 ambulatory FELIBERTO ROSENTHAL Facility:[facility] Start: 02-21-2025 End: 02-21-2025 ambulatory MEGHANA FLOR Facility:[facility] Start: 02-19-2025 Encounter for other preprocedural examination Rui Robbins [facility] Start: 02-17-2025 End: 02-17-[address] Ra KRAMERM Work Phone: -Pre-Admission Testing Start: 02-17-2025 End: 02-17-2025 Dr. Rui Robbins MD -Pre-Admission Testing Work Phone: Start: 02-12-2025 End: 02-12-2025 Follow-up encounter Meghana Flor APRN.CUSTOM PROTECTION OFFICER Work Phone: [facility] Start: 02-12-2025 End: 02-12-2025 Telephone encounter Meghana Flor APRN.CUSTOM PROTECTION OFFICER Work Phone: [facility] Start: 02-12-2025 End: 02-12-2025 Patient encounter procedure Feliberto Rosenthal MD Work Phone: [facility] Comment on above: Nonrheumatic aortic valve stenosis (Primary Dx) Start: 02-12-2025 End: 02-12-2025 ambulatory CATALINO TRIPP Facility:[facility] Start: 02-12-2025 ambulatory MEGHANA FLOR Facili ty:[facility] Start: 02-10-2025 End: 02-10-2025 Telephone encounter Meghana Flor APRN.CUSTOM PROTECTION OFFICER Work Phone: [facility] [place] Start: 02-10-2025 End: 02-10-2025 ambulatory FELIBERTO ROSENTHAL Facility:[facility] Start: 02-10-2025 End: 02-10-2025 Subsequent hospital visit by physician [facility] (I-Stat) RADIO [facility] Comment on above: Aortic valve stenosi s, etiology of cardiac valve disease unspecified [I35.0] Start: 02-05-2025 End: 02-05-2025 Telephone encounter Meghana Flor APRN.CUSTOM PROTECTION OFFICER Work Phone: [facility] [place] Start: 02-03-2025 End: 02-03-2025 Follow-up encounter Meghana Flor APRN.CUSTOM PROTECTION OFFICER Work Phone: [facility] [place] Comment on above: Results Start: 01-31-2025 End: 01-31-2025 ambulatory MEGHANA FLOR Facility:[facility] Start: 01-13-2025 End: 01-13-[address] Gloria Hazel MD Work Phone: -Laboratory [facility] Start: 01-13-2025 End: 01-13-2025 Dr. Jorge Hilton MD -Laboratory [facility] Start: 01-13-2025 End: 01-13-2025 ambulatory Jorge Hilton Facility:[facility] Start: 01-10-2025 End: 01-10-2025 Dr. Dayana Plasencia MD -[facility] Out Work Phone: Start: 01-10-2025 End: 01-10-[address] Gloria Hazel MD Work Phone: -[facility] Start: 01-08-2025 End: 01-08-2025 Dr. Gloria Hazel MD Work Phone: -Emergency Department Work Phone: Start: 01-08-2025 End: 01-08-2025 Emergency department patient visit Dr. Gloria Hazel MD Work Phone: -Emergency Department Start: 12-24-2024 End: 12-24-[address] Gloria Hazel MD Work Phone: -Cardiovascular Services Start: 12-24-2024 End: 12-24-2024 Dr. Jem Mirza MD -[facility] Start: 12-24-2024 End: 12-24-2024 ambulatory [facility] Facility:[facility] Start: 12-12-2024 End: 12-12-[address] Gloria Hazel MD Work Phone: -[facility] Start: 12-12-2024 End: 12-12-2024 Dr. Catalino Short MD -[facility] Work Phone: Start: 12-05-2024 End: 12-05-[address] Gloria Hazel MD Work Phone: -[facility] [place] Start: 12-05-2024 End: 12-05-[address] Dayana Plasencia MD -[facility] Work Phone: Start: 12-05-2024 End: 12-05-2024 Dr. Dayana Plasencia MD -[facility] Work Phone: Start: 12-05-2024 End: 12-05-2024 [facility] Start: 11-25-2024 End: 11-25-[address] Rui Robbins MD -[facility] Work Phone: Start: 11-25-2024 End: 11-25-2024 Dr. Rui Robbins MD -[facility] Work Phone: Start: 11-25-2024 End: 11-25-[address] lGoria Hazel MD Work Phone: -[facility] Start: 11-19-2024 End: 11-19-[address] Gloria Hazel MD Work Phone: -Pulmonary Services/Neurology Start: 11-19-2024 End: 11-19-[address] Jem Mirza MD -Pulmonary Services/Neurology Work Phone: Start: 11-19-2024 End: 11-19-2024 Dr. Jem Mirza MD -Pulmonary Services/Neurology Work Phone: Start: 11-19-2024 End: 11-19-2024 ambulatory Jem Mirza Facility:[facility] Start: 11-06-2024 End: 11-06-[address] Gloria Hazel MD Work Phone: [facility] Work Phone: Start: 11-06-2024 End: 11-06-[address] Rui Robbins MD -[facility] Work Phone: Start: 11-06-2024 End: 11-06-2024 Dr. Rui Robbins MD -[facility] Work Phone: Start: 11-05-2024 End: 11-05-2024 Patient encounter procedure Jackelin ANNA -[facility] Work Phone: Start: 11-05-2024 End: 11-05-2024 Jackelin ANNA -[facility] Work Phone: Start: 11-05-2024 End: 11-06-[address] Gloria Hazel MD Work Phone: [facility] Work Phone: Start: 10-25-2024 End: 10-25-[address] Dayana Plasencia MD -Medical Out Work Phone: Start: 10-25-2024 End: 10-25-2024 Dr. Dayana Plasencia MD -Medical Out Work Phone: Start: 10-25-2024 End: 10-25-[address] Gloria Hazel MD Work Phone: [facility] Work Phone: Start: 10-24-2024 End: 10-24-[address] Gloria Hazel MD Work Phone: [facility] Work Phone: Start: 10-24-2024 End: 10-24-[address] Rui Robbins MD -[facility] Work Phone: Start: 10-24-2024 End: 10-24-2024 Dr. Rui Robbins MD -Cat Scan [facility] Work Phone: Start: 10-23-2024 End: 10-23-[address] Jem Mirza MD -[facility] Work Phone: Start: 10-23-2024 End: 10-23-2024 Dr. Jem Mirza MD -[facility] Work Phone: Start: 10-23-2024 End: 10-24-[address] Gloria Hazel MD Work Phone: [facility] Work Phone: Start: 10-01-2024 End: 10-01-[address] Gloria Hazel MD Work Phone: [facility] Work Phone: Start: 10-01-2024 End: 10-01-[address] Lorelei Rust MD -Laboratory Work Phone: Start: 10-01-2024 End: 10-01-2024 Dr. Lorelei Rust MD -Laboratory Work Phone: Start: 10-01-2024 End: 10-01-2024 ambulatory Lorelei Rust Facility:[facility] Start: 09-26-2024 End: 09-26-[address] Rui Robbins MD -[facility] Work Phone: Start: 09-26-2024 End: 09-26-2024 Dr. Rui Robbins MD -[facility] Work Phone: Start: 09-26-2024 End: 09-26-2024 ambulatory Rui Robbins Facility:[facility] Start: 09-16-2024 End: 09-16-[address] Dayana Plasencia MD -Laboratory, [place] Work Phone: Start: 09-16-2024 End: 09-16-2024 Dr. Dayana Plasencia MD -Laboratory [place] Work Phone: Start: 09-16-2024 End: 09-16-2024 ambulatory [facility] Facility:[facility] Start: 09-12-2024 End: 09-12-[address] Jasbir Perez MD -[facility] Work Phone: Start: 09-12-2024 End: 09-12-2024 Dr. Jasbir Perez MD -[facility] Work Phone: Start: 09-12-2024 End: 09-12-2024 ambulatory Gloria Hazel Facility:[facility] Start: 08-26-2024 End: 08-26-[address] Dayana Plasencia MD -[facility] Out Work Phone: Start: 08-26-2024 End: 08-26-2024 Dr. Dayana Plasencia MD -[facility] Out Work Phone: Start: 08-26-2024 End: 08-26-[address] Gloria Hazel MD Work Phone: [facility] Work Phone: Start: 07-15-2024 End: 07-15-[address] Dayana Plasencia MD -Laboratory, [place] Work Phone: Start: 07-15-2024 End: 07-15-2024 ambulatory [facility] Facility:[facility] Start: 07-02-2024 End: 07-02-[address] Dayana Plasencia MD -Medical Out Work Phone: Start: 07-02-2024 End: 07-02-2024 ambulatory [facility] Facility:[facility] Start: 06-24-2024 End: 06-24-[address] Dayana Plasencia MD -Laboratory, [place] Work Phone: Start: 06-24-2024 End: 06-24-2024 ambulatory [facility] Facility:[facility] Start: 05-09-2024 End: 05-09-2024 ambulatory [facility] Facility:[facility] Start: 05-09-2024 End: 05-09-[address] Dayana Plasencia MD -Medical Out Work Phone: Start: 04-12-2024 End: 04-12-2024 ambulatory Gloria Hazel Facility:[facility] Start: 03-28-2024 End: 03-28-2024 ambulatory [facility] Facility:[facility] Start: 01-09-2024 End: 01-09-2024 Patient encounter procedure Ra Maagllanes APRN.[facility] Work Phone: [facility] Comment on above: Procedure not adams d out (Primary Dx) Start: 09-25-2023 End: 09-25-[address] Gloria Hazel Work Phone: [facility] Work Phone: Start: 09-25-2023 End: 09-25-[address] Gloria Hazel Work Phone: [facility]-Medical Out Work Phone: Start: 09-14-2023 End: 09-14-[address] Gloria Hazel Work Phone: [facility] Work Phone: Start: 09-14-2023 End: 09-14-[address] Gloria Hazel Work Phone: [facility]-Radiology, [facility] Work Phone: Start: 08-01-2023 End: 08-01-[address] Gloria Hazel Work Phone: [facility] Work Phone: Start: 08-01-2023 End: 08-01-[address] Gloria Hazel Work Phone: [facility] Work Phone: Start: 08-01-2023 End: 08-01-2023 Dr. Gloria Hazel Work Phone: [facility] Work Phone: Start: 07-21-2023 End: 07-21-[address] Gloria Hazel Work Phone: [facility] Work Phone: Start: 07-21-2023 End: 07-21-[address] [facility] Start: 07-21-2023 End: 07-21-2023 Dr. [facility] Work [facility]: Start: 06-22-2023 End: 06-22-[address] Gloria Hazel Work Phone: [facility] Work Phone: Start: 06-22-2023 End: 06-22-[address] [facility] Start: 06-22-2023 End: 06-22-2023 Dr. [facility] Hazel [facility] Work [facility]: Start: 06-15-2023 End: 06-15-[address] Gloria Hazel Work Phone: [facility] Work Phone: Start: 06-15-[address] Gloria harrison Work Phone: [facility] Start: 06-15-2023 End: 06-15-2023 Dr. Gloria Hazel Work Phone: [facility] Work Phone: Start: 06-03-2023 Non-patient / Non-visit Dr. Mao Hazel Work Phone: [facility] Work Phone: Start: 06-03-2023 Dr. Gloria perez Work Phone: [facility] Work Phone: Start: 06-01-2023 Non-patient / Non-visit Dr. Mao Hazel Work Phone: [facility] Work Phone: Start: 06-01-2023 End: 06-03-2023 Evaluation and management of inpatient Dr. Gloria Hazel [facility] Work Phone: Start: 06-01-2023 End: 06-03-2023 Dr. [facility] Hazel [facility] Work Phone: Start: 05-26-2023 End: 05-26-[address] Gloria Hazel Work Phone: [facility] Work Phone: Start: 05-26-2023 End: 05-26-[address] Gloria Hazel Work Phone: [facility]-Medical Out Work Phone: Start: 05-26-2023 End: 05-26-2023 Dr. Gloria Hazel Work Phone: [facility]-Medical Out Work Phone: Start: 05-08-2023 End: 05-08-[address] Gloria Hazel Work Phone: [facility] Work Phone: Start: 05-08-2023 End: 05-08-[address] Gloria Hazel Work Phone: [facility] Work Phone: Start: 05-08-2023 End: 05-08-2023 Dr. Gloria Hazel Work Phone: [facility] Work Phone: Start: 03-31-2023 End: 03-31-[address] Gloria Hazel Work Phone: [facility] Work Phone: Start: 03-31-2023 End: 03-31-[address] Gloria Hazel Work Phone: [facility]-Medical Out Work Phone: Start: 03-31-2023 End: 03-31-2023 Dr. Gloria Hazel Work Phone: [facility]-Medical Out Work Phone: Start: 03-10-2023 End: 03-10-[address] Gloria Hazel Work Phone: [facility] Work Phone: Start: 03-10-2023 End: 03-10-2023 Dr. Gloria Hazel Work Phone: [facility] Work Phone: Start: 03-06-2023 End: 03-06-[address] Gloria Hazel Work Phone: [facility] Work Phone: Start: 03-06-2023 End: 03-06-2023 Dr. Gloria Hazel Work Phone: [facility] Work Phone: Start: 01-21-2023 End: 01-21-2023 Emergency department patient visit Dr. Gloria Hazel Work Phone: [facility] Work Phone: Start: 01-21-2023 End: 01-21-2023 Dr. Gloria Hazel Work Phone: [facility]-Emergency Department Work Phone: Start: 01-06-2023 End: 01-27-2023 Evaluation and management of inpatient Dr. Gloira Hazel Work Phone: [facility] Work Phone: Start: 01-06-2023 End: 01-27-2023 Dr. Gloria Hazel Work Phone: [facility]-Transitional Care Unit Start: 01-06-2023 Dr. Gloria perez Work Phone: [facility] Work Phone: Start: 01-05-2023 Dr. Gloria perez Work Phone: [facility] Work Phone: Start: 01-04-2023 Evaluation and management of inpatient Dr. Gloria Hazel Work Phone: [facility] Work Phone: Start: 01-04-2023 End: 01-06-2023 Dr. Gloria Hazel Work Phone: [facility]-Progressive Care Unit Work Phone: Start: 12-29-2022 End: 12-29-[address] Gloria Hazel Work Phone: [facility] Work Phone: Start: 12-29-2022 End: 12-29-2022 Dr. Gloria Hazel Work Phone: [facility]-Laboratory Work Phone: Start: 12-27-2022 End: 12-27-2022 Subsequent hospital visit by physician [facility] Work Phone: Radiology Comment on above: Rib pain on right si de [R07.81] Start: 12-27-2022 End: 12-27-2022 Patient encounter procedure María Botello VICE PRESIDENT OF RECRUITING.CUSTOM PROTECTION OFFICER Work Phone: [facility] Comment on above: Rib pain on right si de (Primary Dx); Closed fracture of multiple ribs of right side, initial encounter Start: 12-14-2022 End: 12-14-2022 Dr. Gloria Hazel Work Phone: [facility] Work Phone: Start: 12-09-2022 End: 12-09-2022 Dr. Gloria Hazel Work Phone: [facility] Work Phone: Start: 12-08-2022 End: 12-08-[address] Gloria Hazel Work Phone: [facility] Work Phone: Start: 12-08-2022 End: 12-08-2022 Dr. Gloria Hazel Work Phone: [facility]-Outpatient Bone Densitometry Work Phone: Start: 11-30-2022 End: 11-30-[address] Gloria Hazel Work Phone: [facility] Work Phone: Start: 11-30-2022 End: 11-30-2022 Dr. Gloria Hazel Work Phone: [facility]-MRI - [facility] Work Phone: Start: 11-28-2022 End: 11-28-[address] Gloria Hazel Work Phone: [facility] Work Phone: Start: 11-28-2022 End: 11-28-2022 Dr. Gloria Hazel Work Phone: [facility]-Laboratory Work Phone: Start: 11-25-2022 End: 11-25-2022 Dr. Gloria Hazel Work Phone: [facility] Work Phone: Start: 11-15-2022 End: 11-15-[address] Gloria Hazel Work Phone: [facility] Work Phone: Start: 11-15-2022 End: 11-15-2022 Dr. Gloria Hazel Work Phone: [facility]-Medical Out Start: 11-14-2022 End: 11-14-2022 Dr. Gloria Hazel Work Phone: [facility]-Radiology, [facility] Start: 11-14-2022 End: 11-14-2022 Dr. Gloria Hazel Work Phone: [facility] Start: 11-10-2022 Dr. Gloria perez Work Phone: [facility] Start: 11-01-2022 End: 11-01-2022 Dr. Gloria Hazel Work Phone: [facility]-Laboratory, [facility] Start: 10-21-2022 Dr. Gloria perez Work Phone: [facility] Start: 10-21-2022 Dr. Gloria perez Work Phone: [facility] Start: 10-20-2022 Dr. Gloria perez Work Phone: [facility] Start: 10-20-2022 End: 10-22-2022 Dr. Gloria Hazel Work Phone: [facility]-Progressive Care Unit Start: 10-20-2022 End: 10-20-2022 Dr. Gloria Hazel Work Phone: [facility] Start: 10-19-2022 End: 10-19-[address] Gloria Hazel Work Phone: [facility] Work Phone: Start: 10-19-2022 End: 10-19-2022 Dr. Gloria Hazel Work Phone: [facility] Start: 10-14-2022 End: 10-14-[address] Gloria Hazel Work Phone: [facility] Work Phone: Start: 10-14-2022 End: 10-14-2022 Dr. Gloria Hazel Work Phone: [facility] Start: 10-11-2022 End: 10-11-2022 Dr. Gloria Hazel Work Phone: [facility]-Laboratory Start: 09-25-2022 Dr. Gloria perez Work Phone: [facility] Start: 09-24-2022 Non-patient / Non-visit Dr. Mao Hazel Work Phone: [facility] Start: 09-24-2022 Dr. Gloria perez Work Phone: [facility] Start: 09-23-2022 Non-patient / Non-visit Dr. Mao Hazel Work Phone: [facility] Start: 09-23-2022 Dr. [facility]rez [facility] Start: 09-23-2022 End: 09-25-2022 Evaluation and management of inpatient Dr. Gloria Hazel [facility] Start: 09-23-2022 End: 09-25-2022 Dr. Gloria Hazel [facility] Start: 09-22-[address] Gloria harrison Work Phone: [facility] Start: 09-22-2022 Dr. Gloria perez Work Phone: [facility] Start: 09-21-2022 End: 09-21-[address] Gloria Hazel Work Phone: [facility] Start: 09-21-2022 End: 09-21-2022 Dr. Gloira Hazel Work Phone: [facility] Start: 09-21-[address] Gloria harrison Work Phone: [facility] Start: 09-20-2022 End: 09-20-[address] Gloria Hazel Work Phone: [facility] Work Phone: Start: 09-20-2022 End: 09-20-[address] Gloria Hazel Work Phone: [facility]-Medical Out Start: 09-20-2022 End: 09-20-2022 Dr. Gloria Hazel Work Phone: [facility]-Medical Out Start: 09-16-2022 End: 09-16-[address] Gloria Hazel Work Phone: [facility] Work Phone: Start: 09-16-2022 End: 09-16-[address] Gloria Hazel Work Phone: [facility] Start: 09-16-2022 End: 09-16-2022 Dr. Gloria Hazel Work Phone: [facility] Start: 09-12-[address] Gloria harrison Work Phone: [facility] Start: 09-12-2022 End: 09-12-[address] Gloria Hazel Work Phone: [facility] Start: 09-12-2022 End: 09-12-2022 Dr. Gloria Hazel Work Phone: [facility] Start: 07-27-2022 End: 07-27-[address] Gloria Hazel Work Phone: [facility] Work Phone: Start: 07-27-2022 End: 07-27-[address] Gloria Hazel Work Phone: [facility]-Medical Out Start: 07-27-2022 End: 07-27-2022 Dr. [facility] Start: 07-25-2022 End: 07-25-[address] Gloria Hazel Work Phone: [facility] Work Phone: Start: 07-25-2022 End: 07-25-[address] Gloria Hazel Work Phone: [facility] Start: 07-25-2022 End: 07-25-2022 Dr. Gloria Hazel Work Phone: [facility] Start: 07-20-2022 End: 07-20-[address] [facility] Start: 07-20-2022 End: 07-20-2022 Dr. Gloria Hazel Work Phone: [facility] Scan, [facility] Start: 07-15-2022 End: 07-15-[address] Gloria Hazel Work Phone: [facility] Start: 07-15-2022 End: 07-15-2022 Dr. Gloria Hazel Work Phone: [facility] Start: 07-01-2022 End: 07-01-[address] Gloria Hazel Work Phone: [facility] Work Phone: Start: 07-01-2022 End: 07-01-[address] Gloria Hazel Work Phone: [facility] Start: 07-01-2022 End: 07-01-2022 Dr. Gloria Hazel Work Phone: [facility] Start: 06-14-2022 End: 06-14-[address] Gloria Hazel Work Phone: [facility] Work Phone: Start: 06-14-2022 End: 06-14-[address] [facility] Start: 06-06-2022 End: 06-06-[address] Gloria Hazel Work Phone: [facility] Work Phone: Start: 06-06-2022 End: 06-06-[address] Gloria Hazel Work Phone: [facility]-Nuclear Medicine, [facility] Start: 05-31-2022 End: 05-31-[address] Gloria Hazel Work Phone: [facility] Work Phone: Start: 05-31-2022 End: 05-31-[address] [facility] Start: 05-13-2022 End: 05-13-[address] [facility] Start: 04-27-2022 End: 04-27-[address] Gloria Hazel Work Phone: [facility] Start: 04-08-2022 End: 04-08-[address] Gloria Hazel Work Phone: [facility] Work Phone: Start: 04-08-2022 End: 04-08-[address] Gloria Hazel Work Phone: [facility] Start: 04-04-2022 End: 04-04-[address] Gloria Hazel [facility] Start: 02-09-2022 End: 02-09-[address] Gloria Hazel Work Phone: [facility] Work Phone: Start: 02-09-2022 End: 02-09-[address] Gloria Hazel Work Phone: [facility] Start: 02-07-2022 End: 02-07-[address] Gloria Hazel Work Phone: [facility] Work Phone: Start: 02-07-2022 End: 02-07-[address] [facility] Start: 01-27-2022 Non-patient / Non-visit Dr. Mao Hazel Work Phone: [facility] Start: 01-27-2022 Non-patient / Non-visit Dr. Mao Hazel Work Phone: [facility] Start: 01-27-2022 End: 01-27-[address] Gloria Hazel Work Phone: [facility]-Cardiovascular Services Start: 01-24-2022 End: 01-24-[address] Gloria Hazel Work Phone: [facility] Work Phone: Start: 01-24-2022 End: 01-24-[address] Gloria Hazel Work Phone: [facility] Start: 01-10-2022 End: 01-10-[address] Gloria Hazel Work Phone: [facility] Start: 12-09-2021 End: 12-09-[address] Gloria Hazel Work Phone: [facility] Start: 12-08-2021 End: 12-08-[address] Gloria Hazel Work Phone: [facility]-Medical Out Start: 11-10-2021 End: 11-10-[address] Gloria Hazel Work Phone: [facility] Start: 10-31-2021 End: 10-31-2021 Emergency department patient visit Dr. Gloria Hazel Work Phone: [facility]-Emergency Department Start: 10-28-2021 Telephone encounter Tonio Hall MD Work Phone: [facility] Comment on above: Results (COVID+) Start: 10-27-2021 End: 10-27-2021 Patient encounter procedure Lucero Mcwilliams APRNMODE Work Phone: [facility] Comment on above: URI, acute (Primary Dx); Viral illness Start: 09-27-2021 End: 09-27-[address] Gloria Hazel [facility] Start: 09-13-2021 End: 09-13-[address] Gloria Hazel Work Phone: [facility] Start: 09-07-2021 End: 09-07-[address] Gloria Hazel Work Phone: [facility] Start: 08-30-2021 End: 08-30-[address] Gloria Hazel Work Phone: [facility] Start: 08-09-2021 End: 08-09-[address] Gloria Hazel Work Phone: [facility] Start: 08-09-2021 End: 08-09-[address] [facility] Haz[facility] Start: 08-02-2021 End: 08-02-2021 Emergency department patient visit Dr. Gloria Hazel Work Phone: [facility]-Emergency Department Start: 07-26-2021 Non-patient / Non-visit Dr. Mao Hazel Work Phone: [facility] Start: 07-26-2021 End: 07-26-2021 Admission to same day surgery center Dr. Gloria Hazel Work Phone: [facility]-Endoscopy Start: 07-19-2021 End: 07-19-[address] Gloria Hazel Work Phone: [facility] Start: 06-23-2021 End: 06-23-[address] Gloria Hazel Work Phone: [facility] Start: 06-11-2021 End: 06-11-[address] Gloria Hazel Work Phone: [facility] Start: 05-26-[address] Gloria Hazel Work Phone: [facility]-Medical Out Procedures Date Procedure Procedure Detail Performing Clinician Start: 02-21-2025 Antibody screen MEGHANA CHACHO Comment on above: Order Comment: Specimen Type: BLOOD SPEC IMEN Ordering Facility: [facility] Address: [address] [place] [address] Performed By: #### T [id number] #### [facility] MAIN BLOOD BANK CLIA [id number] [address] [place] [address] [place] Start: 01-13-2025 Blood count smear mcrscp w/mnl difrntl wbc count Dr. Gloria Hazel MD Work Phone: Start: 01-13-2025 Mean corpuscular hemoglobin concentration determination Dr. Gloria Hazel MD Work Phone: Start: 01-13-[address] Jorge Hilton MD Work Phone: Start: 01-13-2025 Nucleated red blood cell count procedure Dr. Gloria Hazel MD Work Phone: Start: 01-13-2025 Platelet mean volume determination Dr. Bria Hazel MD Work Phone: Start: 01-08-2025 Plain x-ray of elbow Dr. Gloria Hazel MD Work Phone: Start: 01-08-2025 Plain x-ray of pelvis and lower extremity Dr. Gloria Hazel MD Work Phone: Start: 01-08-2025 XR forearm, [address] Gloria Hazel MD Work Phone: Start: 01-08-2025 CT cervical spine without contrast Dr. Bria Hazel MD Work Phone: Start: 01-08-2025 CT of head without contrast Dr. Gloria phillip MD Work Phone: Start: 12-17-2024 Methicillin resistant Staphylococcus aureus screening test Dr. Ra Bojorquez DPM Work Phone: Start: 12-17-2024 Blood count smear mcrscp w/mnl difrntl wbc count Dr. Ra Bojorquez DPM Work Phone: Start: 12-17-2024 Calculation of international normalized ratio Dr. Ra Bojorquez DPM Work Phone: Start: 12-17-2024 Mean corpuscular hemoglobin concentration determination Dr. Ra Bojorquez DPM Work Phone: Start: 12-17-[address] Jorge Hilton MD Work Phone: Start: 12-17-2024 Nucleated red blood cell count procedure Dr. Ra Bojorquez DP Work Phone: Start: 12-17-2024 Platelet mean volume determination Dr. Sathya Bojorquez DPM Work Phone: Start: 12-17-[address] Billie Bojorquez DP Work Phone: Start: 12-12-2024 Blood count smear mcrscp w/mnl difrntl wbc count Dr. Gloria Hazel MD Work Phone: Start: 12-12-[address] Gloria harrison MD Work Phone: Start: 12-12-[address] Shoshana Hilton MD Work Phone: Start: 12-12-2024 Mean corpuscular hemoglobin concentration determination Dr. Gloria Hazel MD Work Phone: Start: 12-12-[address] Jorge Hilton MD Work Phone: Start: 12-12-2024 Nucleated red blood cell count procedure Dr. Gloira Hazel MD Work Phone: Start: 12-12-2024 Platelet mean volume determination Dr. Bria Hazel MD Work Phone: Start: 12-12-2024 Total iron binding capacity measurement Dr. Gloria Hazel MD Work Phone: Start: 12-05-2024 Blood count smear mcrscp w/mnl difrntl wbc count Dr. Gloria Hazel MD Work Phone: Start: 12-05-[address] Shoshana Hilton MD Work Phone: Start: 12-05-2024 Mean corpuscular hemoglobin concentration determination Dr. Gloria Hazel MD Work Phone: Start: 12-05-[address] Jorge Hilton MD Work Phone: Start: 12-05-2024 Nucleated red blood cell count procedure Dr. Gloria Hazel MD Work Phone: Start: 12-05-2024 Platelet mean volume determination Dr. Bria Hazel MD Work Phone: Start: 12-05-2024 Total iron binding capacity measurement Dr. Gloria Hazel MD Work Phone: Start: 11-06-2024 MRI of joint of lower extremity Dr. Gloria Hazel MD Work Phone: Start: 10-24-2024 CT of upper limb without contrast Dr. Mao Hazel MD Work Phone: Start: 10-01-2024 Benzodiazepine measurement, urine Dr. Mao Hazel MD Work Phone: Start: 10-01-2024 Cocaine measurement, urine Dr. Gloria morrison MD Work Phone: Start: 10-01-2024 Methadone measurement, urine Dr. Gloria freitas MD Work Phone: Start: 10-01-[address] Gloria Hazel MD Work Phone: Comment on above: Test Ordered: [id number] K16-Dsdqsi+S W6Eqmqrtnobshx Screen, Urine Negative ng/mL UI Reference Range: Dqgjps=133Hgintnssioh test includes Amphetamine and Methamphetamine.Barbiturates Negative ng/mL UI Reference Range: Ivwrix=259Cwchltsddezlglp Negative ng/mL UI Reference Range: Nitpxb=482Jererna (Metab.), Urine Negative ng/mL UI Reference Range: Vutnzx=706Ypvxafj Note: ng/mL UI See Final Results Reference Range: Yubmjr=060Yjxnbi test includes Codeine, Morphine, Hydromorphone, Hydrocodone.Opiates Positive [A ] UI Reference Range: Kuwbik=697Tvwhuh test includes Codeine, Morphine, Hydromorphone, Hydrocodone.Codeine Negative UI Reference Range: Nklsjd=010Yhbhxkou Negative UI Reference Range: Lrysrr=423Ocquynvmjvcfh Positive [A ] UI Reference Range: .Hydromorphone Conf, MS, UR 146 ng/mL UI Reference Range: Hcamld=172Lvcosiuufzl Positive [A ] UI Reference Range: .Hydrocodone Conf, MS, UR 773 ng/mL UI Reference Range: Roazdt=4211-Qxnrovvujipfkq, Urine Negative ng/mL UI Reference Range: Cutoff=10Oxycodone/Oxymorphone, Urine Negative ng/mL UI Reference Range: Xyxvfk=410Naqg includes Oxycodone and OxymorphonePCP, Urine Negative ng/mL UI Reference Range: Cutoff=25Methadone Screen, Urine Negative ng/mL UI Reference Range: Nxfbnq=373Veuhjqifbuqr, Urine Negative ng/mL UI Reference Range: Ijxbbm=693Tnbyhlhg, Urine Negative ng/mL UI Reference Range: Cutoff=2.0Test includes Fentanyl and NorfentanylThis test was developed and its performance characteristicsdetermined by [facility]. It has not been cleared orapproved by the Food and Drug Administration.Tramadol Negative ng/mL UI Reference Range: Cjqaew=637Gxlumfzybijke, Urine Negative ng/mL UI Reference Range: Cutoff=10Creatinine, Urine 34.9 mg/dL UI Reference Range: 20.0-300.0pH, Urine 5.0 UI Reference Range: 4.5-8.9Performed at: [facility] [id number] [facility], [place], [place] [id number] Director: Juan Maloney PhD, Phone: [phone] at: [facility] [place], [place] [id number] Director: Adonay Tucker PhD, Phone: [phone] Start: 10-01-[address] Gloria dodge MD Work Phone: Start: 10-01-[address] Gloria Hazel MD Work Phone: Start: 09-16-2024 Blood count smear mcrscp w/mnl difrntl wbc count Dr. Gloria Hazel MD Work Phone: Start: 09-16-2024 Mean corpuscular hemoglobin concentration determination Dr. Gloria Hazel MD Work Phone: Start: 09-16-2024 Nucleated red blood cell count procedure Dr. Gloria Hazel MD Work Phone: Start: 09-16-2024 Platelet mean volume determination Dr. Bria Hazel MD Work Phone: Start: 07-15-2024 Measurement of renal function Dr. Gloria dodge MD Work Phone: Comment on above: GFR Calc Start: 06-24-2024 Measurement of renal function Dr. Gloria dodge MD Work Phone: Comment on above: GFR Calc Start: 12-11-2023 Endomys[address] antibody IgA level Dr. Gloria dodge MD Work Phone: Start: 12-11-2023 Gliadin antibody, IgA measurement Dr. Mao Hazel MD Work Phone: Start: 12-11-2023 Gliadin antibody, IgG measurement Dr. Mao Hazel MD Work Phone: Start: 12-11-2023 Measurement of C-reactive protein using high sensitivity technique Dr. Gloria Hazel MD Work Phone: Start: 12-11-2023 Measurement of immunoglobulin A in serum specimen Dr. Gloria Hazel MD Work Phone: Start: 12-11-2023 Measurement of renal function Dr. Gloria dodge MD Work Phone: Start: 09-14-2023 Plain X-ray of shoulder Dr. Gloria Hazel Work Phone: Start: 06-01-2023 SARS-CoV-2, Influenza & RSV (PCR) Dr. Mao Hazel Work Phone: Start: 06-01-[address] Gloria Hazel Work Phone: Start: 06-01-2023 Dr. Gloria Hazel Work Phone: Start: 06-01-2023 Plain chest X-ray Dr. Gloria Hazel Work Phone: Start: 01-24-2023 Investigation of transfusion reaction Dr. Gloria Hazel Work Phone: Start: 01-24-[address] Gloria dodge Work Phone: Start: 01-23-2023 Plain chest X-ray Dr. Gloria Hazel Work Phone: Start: 01-21-2023 CT of head without contrast Dr. Gloria phillip Work Phone: Start: 01-06-2023 Plain X-ray abdomen Dr. Gloria Hazel Work Phone: Start: 01-04-2023 Plain chest X-ray Dr. Gloria Hazel Work Phone: Start: 01-04-2023 CT of head without contrast Dr. Gloria phillip Work Phone: Start: 01-04-2023 CT of abdomen and pelvis without contrast Dr. Gloria Hazel Work Phone: Start: 12-27-2022 Radex ribs uni w/posteroant ch minimum 3 views María Botello APRN.CUSTOM PROTECTION OFFICER Work Phone: Start: 12-08-2022 Dual energy X-ray absorptiometry Dr. Gloria Hazel Work Phone: Start: 11-30-2022 MRI of lumbar spine Dr. Gloria Hazel Work Phone: Start: 11-25-2022 Pelvis X-ray Dr. Gloria Hazel Work Phone: Start: 11-25-2022 X-ray of lumbar spine, two or three views Dr. Gloria Hazel Work Phone: Start: 11-14-2022 Plain chest X-ray Dr. Gloria Hazel Work Phone: Start: 10-21-[address] Gloria morrison Work Phone: Start: 10-21-2022 CT angiography of chest with contrast Dr. Gloria Hazel Work Phone: Start: 10-21-[address] Gloria morrison Work Phone: Start: 10-20-2022 Measurement of occult blood in stool specimen using immunoassay Dr. Gloria Hazel Work Phone: Start: 10-20-2022 Plain chest X-ray Dr. Gloria Hazel Work Phone: Start: 10-11-2022 Plain chest X-ray Dr. Gloria Hazel Work Phone: Start: 09-23-2022 Dr. Gloria Hazel Work Phone: Start: 09-23-2022 Plain X-ray of shoulder Dr. Gloria Hazel Work Phone: Start: 09-23-2022 CT of chest without contrast Dr. Gloria freitas Work Phone: Start: 09-23-2022 Plain chest X-ray Dr. Gloria Hazel Work Phone: Start: 09-22-2022 Measurement of occult blood in stool specimen using immunoassay Dr. Gloria Hazel Work Phone: Start: 09-16-2022 Plain chest X-ray Dr. Gloria Hazel Work Phone: Start: 07-20-2022 CT of thoracic spine with contrast Dr. Bria Hazel Work Phone: Start: 07-01-2022 Plain chest X-ray Dr. Gloria Hazel Work Phone: Start: 07-01-2022 Radiography of thoracic spine Dr. Gloria dodge Work Phone: Start: 06-06-2022 Radionuclide gastric emptying study Dr. Gloria Hazel Work Phone: Start: 01-24-2022 X-ray of cervical spine Dr. Gloria Hazel Work Phone: Start: 10-31-2021 SARS-CoV-2 & FLU Antigen (Rapid) Dr. Gloria Hazel Work Phone: Start: 10-31-2021 Plain chest X-ray Dr. Gloria Hazel Work Phone: Start: 08-30-[address] Gloria Hazel Work Phone: Start: 08-02-2021 Computed tomography of abdomen and pelvis with intravenous contrast Dr. Gloria Hazel Work Phone: Start: 08-06-2020 History of placement of stent for coronary artery disease History of coronary artery stent placement Dr. Jem Mirza MD Comment on above: Successful PCI on OM2 with GAGE. Unsucces sful PCI of SEWER DIGGER of LAD per Dr. Garcia on 08/06/2020 Respiratory Panel (PCR) Dr. Gloria Hazel Work Phone: SARS-CoV-2 & FLU Antigen (Rapid) Dr. Gloria Hazel Work Phone: SARS-CoV-2 & FLU Antigen (Rapid) Dr. Gloria Hazel Work Phone: Dr. Gloria Hazel Work Phone: Plan of Treatment Date Care Activity Detail Author Start: 02-01-2028 Diabetes Screening Diabetes Screening [facility] Start: 06-02-2025 Lactate dehydrogenase measurement [facility] Start: 06-02-2025 Reticulocyte count [facility] Start: 06-02-2025 Vitamin B12 measurement [facility] Start: 04-02-2025 End: 04-02-2025 Patient encounter procedure 04/02/2025 2:00 PM EST Office Visit [facility] [address] 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 0] Re-evaluation of known valvular heart disease with change in clinical status Start: 03-19-2025 End: 03-19-2025 -[facility] Work Phone: Start: 03-19-2025 End: 03-19-2025 Evaluation of diagnostic study results [facility] Start: 03-12-2025 Vedolizumab therapy [facility] Start: 03-07-2025 End: 03-07-2025 Patient encounter procedure 03/07/2025 10:30 AM EDT Office Visit [facility] [address] [place] [address] Meghana Flor APRN.CUSTOM PROTECTION OFFICER [address] [address] (Fax) Valve Clinic- 1 week p/o - 5M Walk,EKG,KCCQ [facility] Comment on above: Valve Clinic- 1 week p/o - 5M Walk,EKG,K CCQ Start: 02-27-2025 End: 02-27-2025 Admission to same day surgery center 02/27/2025 11:15 AM EDT - 02/27/2025 3:00 PM EDT Surgery [address] [address] Feliberto Rosenthal MD [address] [place] [address] [place] [id number] TRANSCATHETER AORTIC VALVE REPLACEMENT (TAVR/UMA) W/ PROSTHETIC VALVE PERCUTANEOUS FEMORAL ARTERY APPROACH [facility] Comment on above: TRANSCATHETER AORTIC VALVE REPLACEMENT ( TAVR/UMA) W/ PROSTHETIC VALVE PERCUTANEOUS FEMORAL ARTERY APPROACH Start: 02-27-2025 End: 02-27-2025 Replace aortic valve perq femoral artry approach TRANSCATHETER AORTIC VALVE REPLACEMENT (TAVR/UMA) W/ PROSTHETIC VALVE PERCUTANEOUS FEMORAL ARTERY APPROACH Nonrheumatic aortic (valve) stenosis 02/27/2025 11:15 AM EDT [facility] Start: 02-27-2025 Subsequent hospital visit by physician 02/27/2025 11:15 AM EDT Hospital Encounter [address] [address] Feliberto Rosenthal MD [address] [place] [address] [place] [id number] Nonrheumatic aortic (valve) stenosis [I35.0] [facility] Comment on above: Nonrheumatic aortic (valve) stenosis [I3 5.0] Start: 02-21-2025 End: 02-21-2025 Patient encounter procedure 02/21/2025 9:30 AM EDT Office Visit [facility] [address] [place] [address] Meghana Flor APRN.CUSTOM PROTECTION OFFICER [address] [place] [id number] [facility]ve Clinic- PAT - 5M Walk,EKG,KCCQ [facility] Comment on above: Valve Clinic- PAT - 5M Walk,EKG,KCCQ Start: 02-17-2025 Urine microalbumin profile DTaP,Tdap,Td Vaccine (3 - Td or Tdap) [facility] Start: 02-12-2025 End: 05-14-2025 Basic metabolic 2000 panel - Serum or Plasma BASIC METABOLIC PANEL Lab Routine Nonrheumatic aortic valve stenosis Expected: 02/12/2025, Expires: 05/14/2025 [facility] Comment on above: Expected: 02/12/2025, Expires: Start: 02-12-2025 End: 05-14-2025 CBC panel - Blood by Automated count COMPLETE BLOOD COUNT Lab Routine Nonrheumatic aortic valve stenosis Expected: 02/12/2025, Expires: 05/14/2025 [facility] Comment on above: Expected: 02/12/2025, Expires: Start: 02-12-2025 End: 05-14-2025 CONFIRM BLOOD TYPE CONFIRM BLOOD TYPE Blood Bank Routine Nonrheumatic aortic valve stenosis Expected: 02/12/2025, Expires: 05/14/2025 [facility] Comment on above: Expected: 02/12/2025, Expires: Start: 02-12-2025 End: 05-14-2025 TYPE AND SCREEN,30 DAY TYPE AND SCREEN,30 DAY Blood Bank Routine Nonrheumatic aortic valve stenosis Expected: 02/12/2025, Expires: 05/14/2025 [facility] Comment on above: Expected: 02/12/2025, Expires: Start: 02-12-2025 End: 02-12-2025 [facility] Comment on above: Valve Clinic- Initial Visit - 5M Walk,EK G,KCCQ Start: 02-12-2025 End: 02-12-2025 Patient encounter procedure [facility] Comment on above: Aortic valve stenosis, etiology of cardi ac valve disease unspecified [I35.0] Start: 02-10-2025 End: 02-10-2025 Admission to same day surgery center 02/10/2025 10:00 AM EDT - 02/10/2025 11:30 AM EDT Surgery [address] [address] Feliberto Rosenthal MD [address] [place] [address] LEFT HEART CATH INTRAPROCEDURAL INJECT W/ LEFT VENTRICULOGRAPHY IMAGE SUPERVISION/INTERPRETATI ON [facility] Comment on above: LEFT HEART CATH INTRAPROCEDURAL INJECT W / LEFT VENTRICULOGRAPHY IMAGE SUPERVISION/INTERPRETATION Start: 02-10-2025 Subsequent hospital visit by physician 02/10/2025 10:00 AM EDT Hospital Encounter [facility] [address] [place] [address] Feliberto Rosenthal MD [address] [place] [address] Valvular heart disease [I38] [facility] Comment on above: Valvular heart disease [I38] Start: 02-10-2025 End: 02-10-2025 L hrt cath w/njx l ventriculography img s&i [place] PATIENT ATTENDANT Start: 02-10-2025 End: 02-10-2025 Patient encounter procedure 02/10/2025 9:00 AM EDT Appointment [facility] [address] [place] [address] [facility] Comment on above: T[facility] Start: 01-27-2025 Influenza vaccination Influenza Vaccine (#1) [facility] Start: 01-08-2025 [facility] Start: 12-17-2024 Electrocardiographic procedure [facility] Start: 12-12-2024 [facility] Start: 11-19-2024 Measurement of respiratory function [facility] Start: 10-25-2024 Iv infusion therapy/prophylaxis /dx 1st to 1 hr [facility] Start: 05-29-2024 Advance Directive Discussion Advance Directive Discussion [facility] Start: 05-29-2024 Medicare Advantage Annual Wellness Visit Medicare Advantage Annual Wellness Visit [facility] Start: 05-09-2024 Iv infusion therapy/prophylaxis /dx 1st to 1 hr THER/PROPH/DIAG IV INF INIT [facility] Start: 01-28-2024 Covid-19 Vaccine ( season) Covid-19 Vaccine () [facility] Start: 01-28-2024 Influenza vaccination Influenza Vaccine (#1) [facility] Start: 08-17-2023 DIABETES SCREEN DIABETES SCREEN [facility] Start: 08-17-2023 Diabetes Screening Diabetes Screening [facility] Start: 06-03-2023 Patient discharge [facility] Start: 06-01-2023 [facility] Start: 06-01-2023 Following clinical pathway protocol [facility] Start: 06-01-2023 Bacteria identified in Urine by Culture Urine Culture [facility] Start: 06-01-2023 Assessment of risk of venous thromboembolism [facility] Start: 06-01-2023 Catheterization of vein [facility] Start: 06-01-2023 Incentive spirometry [facility] Start: 06-01-2023 Inhalation therapy procedure [facility] Start: 06-01-2023 Insertion of catheter into peripheral vein [facility] Start: 06-01-2023 Measuring intake and output [facility] Start: 06-01-2023 Oxygen therapy [facility] Start: 06-01-2023 Physiotherapy of chest [facility] Start: 06-01-2023 Providing care according to standard [facility] Start: 06-01-2023 Provision of activity privileges [facility] Start: 06-01-2023 Referral to occupational therapist [facility] Start: 06-01-2023 Referral to service [facility] Start: 06-01-2023 [facility] Start: 06-01-2023 Admission procedure [facility] Start: 06-01-2023 Hospital admission, emergency, from emergency room, medical nature [facility] Start: 06-01-2023 End: 06-01-2023 [facility] Start: 05-29-2023 Advance Directive Discussion Advance Directive Discussion [facility] Start: 03-31-2023 Iv infusion therapy/prophylaxis /dx 1st to 1 hr [facility] Start: 03-07-2023 Covid-19 Vaccine ( season) Covid-19 Vaccine () [facility] Start: 02-18-2023 Blood chemistry [facility] Start: 02-11-2023 Blood chemistry [facility] Start: 02-04-2023 Blood chemistry [facility] Start: 01-28-2023 Blood chemistry [facility] Start: 01-27-2023 Influenza vaccination INFLUENZA (#1) [facility] Start: 01-27-2023 Referral to service [facility] Start: 01-27-[address] [facility] Start: 01-27-2023 Patient discharge [facility] Start: 01-26-2023 Referral to service [facility] Start: 01-23-2023 [facility] Start: 01-22-2023 Wound care [facility] Start: 01-17-2023 [facility] Start: 01-15-[address] [facility] Start: 01-09-2023 Verification routine [facility] Start: 01-09-2023 Patient referral to dietitian [facility] Start: 01-07-2023 Developing a treatment plan [facility] Start: 01-07-[address] [facility] Start: 01-06-2023 Following clinical pathway protocol [facility] Start: 01-06-2023 Oxygen therapy [facility] Start: 01-06-2023 Admission procedure [facility] Start: 01-06-2023 Measuring intake and output [facility] Start: 01-06-2023 Patient referral to dietitian [facility] Start: 01-06-2023 Referral to occupational therapist [facility] Start: 01-06-2023 Referral to service [facility] Start: 01-06-[address] [facility] Start: 01-06-2023 [facility] Start: 01-06-2023 Patient discharge [facility] Start: 01-04-2023 Troponin I measurement [facility] Start: 01-04-2023 Following clinical pathway protocol [facility] Start: 01-04-2023 Application of elastic bandage [facility] Start: 01-04-2023 Assessment of risk of venous thromboembolism [facility] Start: 01-04-2023 Fall prevention [facility] Start: 01-04-2023 Inhalation therapy procedure [facility] Start: 01-04-2023 Insertion of catheter into peripheral vein [facility] Start: 01-04-2023 Introduction of urinary catheter [facility] Start: 01-04-2023 Measuring intake and output [facility] Start: 01-04-2023 Oxygen therapy [facility] Start: 01-04-2023 Providing care according to standard [facility] Start: 01-04-2023 Provision of activity privileges [facility] Start: 01-04-2023 Referral to occupational therapist [facility] Start: 01-04-2023 Referral to service [facility] Start: 01-04-2023 [facility] Start: 01-04-2023 Verification routine [facility] Start: 01-04-2023 Admission procedure [facility] Start: 01-04-2023 Consultation [facility] Start: 12-09-2022 Patient referral [facility] Work Phone: Start: 12-08-2022 Dual energy X-ray absorptiometry [facility] Start: 12-08-2022 DXA Bone [Mass/Area] Bone density [facility] Start: 11-15-2022 Iv infusion therapy/prophylaxis /dx 1st to 1 hr [facility] Start: 10-22-2022 Patient discharge [facility] Start: 10-22-2022 Oxygen therapy [facility] Start: 10-22-2022 Inhalation therapy procedure [facility] Start: 10-21-[address] [facility] Start: 10-21-2022 Administration of blood product [facility] Start: 10-20-2022 Catheterization of vein [facility] Start: 10-20-2022 Ambulation without limitation [facility] Start: 10-20-2022 Assessment of risk of venous thromboembolism [facility] Start: 10-20-2022 Catheterization of vein [facility] Start: 10-20-2022 Insertion of catheter into peripheral vein [facility] Start: 10-20-2022 Measuring intake and output [facility] Start: 10-20-2022 Providing care according to standard [facility] Start: 10-20-2022 Referral to gastroenterology service [facility] Start: 10-20-2022 [facility] Start: 10-20-2022 Following clinical pathway protocol [facility] Start: 10-20-2022 Admission procedure [facility] Start: 10-20-2022 Patient referral to dietitian [facility] Start: 09-28-2022 Blood chemistry [facility] Start: 09-27-2022 Blood chemistry [facility] Start: 09-26-2022 Blood chemistry [facility] Start: 09-25-2022 Patient discharge [facility] Start: 09-23-2022 Following clinical pathway protocol [facility] Start: 09-23-2022 Assessment of risk of venous thromboembolism [facility] Start: 09-23-2022 Consultation for treatment [facility] Start: 09-23-2022 Inhalation therapy procedure [facility] Start: 09-23-2022 Insertion of catheter into peripheral vein [facility] Start: 09-23-2022 Measuring intake and output [facility] Start: 09-23-2022 Oxygen therapy [facility] [facility] Start: 09-23-2022 Providing care according to standard [facility] Start: 09-23-2022 Provision of activity privileges [facility] Start: 09-23-2022 Troponin I measurement [facility] Start: 09-23-2022 Plain X-ray of shoulder Shoulder min [address] [facility] Start: 09-23-2022 XR Shoulder GE 2 Views [facility] Start: 09-23-2022 CT Chest WO contrast [facility] Start: 09-23-2022 CT of chest without contrast Chest without Contrast [facility] Start: 09-23-2022 End: 09-23-2022 [facility] Start: 09-23-2022 Verification routine [facility] Start: 09-23-2022 Admission procedure [facility] Start: 09-23-2022 Patient referral to dietitian [facility] Start: 09-21-2022 [facility] Start: 09-20-2022 Iv infusion therapy/prophylaxis /dx 1st to 1 hr [facility] Start: 08-08-2022 Patient referral [facility] Work Phone: Start: 07-27-2022 Iv infusion therapy/prophylaxis /dx 1st to 1 hr THER/PROPH/DIAG IV INF [facility] Start: 06-14-2022 Procedure [facility] Start: 05-31-2022 Iv infusion therapy/prophylaxis /dx 1st to 1 hr THER/PROPH/DIAG IV INF [facility] Start: 05-29-2022 ADVANCE DIRECTIVE DISCUSSION ADVANCE DIRECTIVE DISCUSSION [facility] Start: 05-29-2022 DEPRESSION ASSESSMENT DEPRESSION ASSESSMENT [facility] Start: 04-04-2022 Iv infusion therapy/prophylaxis /dx 1st to 1 hr THER/PROPH/DIAG IV INF [facility] Work Phone: Start: 02-07-2022 Iv infusion therapy/prophylaxis /dx 1st to 1 hr [facility] Start: 12-08-2021 Iv infusion therapy/prophylaxis /dx 1st to 1 hr [facility] Start: 10-31-2021 [facility] Work Phone: Start: 10-27-2021 End: 11-10-2021 Influenza virus A and B RNA and SARS-CoV-2 (COVID-19) N gene panel - Respiratory specimen by JUDI with probe detection COVID WITH FLUA+B, ROUTINE Microbiology Routine URI, acute Viral illness Expected: 10/27/2021, Expires: 11/10/2021 [facility] Work Phone: Comment on above: Expected: 10/27/2021, Expires: Start: 09-27-2021 Iv infusion therapy/prophylaxis /dx 1st to 1 hr [facility] Start: 07-26-2021 Colonoscopy w/biopsy single/multiple COLONOSCOPY AND BIOPSY [facility] Work Phone: Start: 07-26-2021 Colsc flexible w/control bleeding any method COLONOSCOPY W/CONTROL BLEED [facility] Work Phone: Start: 07-26-2021 Colsc flx w/rmvl of tumor polyp lesion snare tq COLONOSCOPY W/LESION REMOVAL [facility] Work Phone: Start: 07-26-2021 Egd transoral control bleeding any method EGD CONTROL BLEEDING ANY [facility] Work Phone: Start: 06-26-2021 COVID-19 VACCINE (4 - Booster for Pfizer series) COVID-19 VACCINE (4 - Booster for Pfizer series) [facility] Start: 05-29-2021 ADVANCE DIRECTIVE DISCUSSION ADVANCE DIRECTIVE DISCUSSION [facility] Start: 05-26-2021 Iv infusion therapy/prophylaxis /dx 1st to 1 hr THER/PROPH/DIAG IV INF INIT [facility] Work Phone: Start: 05-21-2021 COVID-19 VACCINE (4 - Booster for Pfizer series) COVID-19 VACCINE (4 - Booster for Pfizer series) [facility] Start: 2017 RSV Vaccine (1 - 1-dose 75+ series) RSV Vaccine (1 - 1-dose 75+ series) [facility] Start: 2002 RSV Vaccine (1 - 1-dose 60+ series) RSV Vaccine (1 - 1-dose 60+ series) [facility] Start: 1992 SHINGRIX VACCINE (1 of 2) SHINGRIX VACCINE (1 of 2) [facility] Start: 1961 SHINGRIX VACCINE (1 of 2) SHINGRIX VACCINE (1 of 2) [facility] Start: 1961 Urine microalbumin profile DTAP,TDAP,TD (1 - Tdap) [facility] Start: 1960 Anxiety Screening Anxiety Screening [facility] Start: 1960 Depression Screening Depression Screening [facility] Start: 1960 HEPATITIS C SCREENING HEPATITIS C SCREENING [facility] Start: 1954 Adult depression screening assessment DEPRESSION SCREENING [facility] Start: 1948 PNEUMOCOCCAL: 65+ (1 - PCV) PNEUMOCOCCAL: 65+ (1 - PCV) [facility] Anion gap measurement [facility] Anion gap measurement [facility] Anion gap measurement [facility] Anion gap measurement [facility] Bilirubin measurement, urine [facility] Blood chemistry [facility] BUN/Creatinine ratio [facility] BUN/Creatinine ratio [facility] BUN/Creatinine ratio [facility] BUN/Creatinine ratio [facility] C reactive protein [Mass/volume] in Serum or Plasma [facility] C reactive protein [Mass/volume] in Serum or Plasma [facility] C reactive protein [Mass/volume] in Serum or Plasma [facility] Calcium [Mass/volume ] in Serum or Plasma [facility] Calcium [Mass/volume ] in Serum or Plasma [facility] Calcium [Mass/volume ] in Serum or Plasma [facility] Calcium [Mass/volume ] in Serum or Plasma [facility] Carbon dioxide, tota l [Moles/volume] in Serum or Plasma [facility] Carbon dioxide, tota l [Moles/volume] in Serum or Plasma [facility] Carbon dioxide, tota l [Moles/volume] in Serum or Plasma [facility] Carbon dioxide, tota l [Moles/volume] in Serum or Plasma [facility] CBC W Auto Different ial panel - Blood [facility] Work Phone: CBC W Auto Different ial panel - Blood [facility] CBC W Auto Different ial panel - Blood [facility] CBC W Auto Different ial panel - Blood [facility] CBC W Auto Different ial panel - Blood [facility] CBC W Auto Different ial panel - Blood [facility] Chloride [Moles/volu me] in Serum or Plasma [facility] Chloride [Moles/volu me] in Serum or Plasma [facility] Chloride [Moles/volu me] in Serum or Plasma [facility] Chloride [Moles/volu me] in Serum or Plasma [facility] metabo lic 1999 panel - Serum or Plasma [facility] metabo lic 1999 panel - Serum or Plasma [facility] Creatine kinase [Enz ymatic activity/volume] in Serum or Plasma [facility] Creatinine [Moles/vo lume] in Serum or Plasma [facility] Creatinine [Moles/vo lume] in Serum or Plasma [facility] Creatinine [Moles/vo lume] in Serum or Plasma [facility] Creatinine [Moles/vo lume] in Serum or Plasma [facility] CT Upper extremity W O contrast [facility] End: 02-10-2025 CTA Abdominal vessels and Pelvis vessels W contrast IV [facility] Work Phone: Comment on above: 1 Occurrences starting 02/10/2025 until 02/10/2025 End: 02-10-2025 CTA Chest vessels WO and W contrast IV [facility] Comment on above: 1 Occurrences starting 02/10/2025 until 02/10/2025 Cyclic citrullinated peptide IgG Ab [Units/volume] in Serum or Plasma [facility] DXA Bone [Mass/Area] Bone density [facility] ECG B/O W INTERP (NM D OFFICE) ECG B/O W INTERP (MED OFFICE) ECG Routine Nonrheumatic aortic valve stenosis Ordered: 02/12/2025 [facility] Work Phone: Comment on above: Ordered: 02/12/2025 End: 02-05-2026 Echocardiography ECHO Cardiology Routine Aortic valve stenosis, etiology of cardiac valve disease unspecified 1 Occurrences starting 02/05/2025 until 02/05/2026 [facility] Work Phone: Comment on above: 1 Occurrences starting 02/05/2025 until 02/05/2026 End: 02-12-2026 Echocardiography ECHO Cardiology Routine Nonrheumatic aortic valve stenosis 1 Occurrences starting 02/12/2025 until 02/12/2026 [facility] Comment on above: 1 Occurrences starting 02/12/2025 until 02/12/2026 Erythrocyte sediment ation rate [facility] Erythrocyte sediment ation rate [facility] Erythrocyte sediment ation rate [facility] Erythrocyte sediment ation rate [facility] Erythropoietin (EPO) [Units/volume] in Serum or Plasma [facility] Ferritin [Mass/volum e] in Serum or Plasma [facility] Work Phone: Ferritin [Mass/volum e] in Serum or Plasma [facility] Ferritin [Mass/volum e] in Serum or Plasma [facility] Ferritin [Mass/volum e] in Serum or Plasma [facility] Ferritin [Mass/volum e] in Serum or Plasma [facility] Folate [Moles/volume ] in Serum or Plasma [facility] Glucose [Mass/volume ] in Serum or Plasma [facility] Glucose [Mass/volume ] in Serum or Plasma [facility] Glucose [Mass/volume ] in Serum or Plasma [facility] Glucose [Mass/volume ] in Serum or Plasma [facility] Hematocrit [Volume F raction] of Blood [facility] Hematocrit [Volume F raction] of Blood [facility] Hematocrit [Volume F raction] of Blood [facility] Hematocrit [Volume F raction] of Blood [facility] Hemoglobin [Mass/vol ume] in Blood [facility] Hemoglobin [Mass/vol ume] in Blood [facility] Hemoglobin [Mass/vol ume] in Blood [facility] Hemoglobin [Mass/vol ume] in Blood [facility] Hemoglobin [Presence ] in Urine [facility] HLA-B27 [Presence] b y JUDI with probe detection [facility] Iron and Iron bindin g capacity panel - Serum or Plasma [facility] Work Phone: Iron and Iron bindin g capacity panel - Serum or Plasma [facility] Iron and Iron bindin g capacity panel - Serum or Plasma [facility] Iron and Iron bindin g capacity panel - Serum or Plasma [facility] Iron and Iron bindin g capacity panel - Serum or Plasma [facility] Lactate dehydrogenas e measurement [facility] Lactate dehydrogenas e measurement [facility] Lactate dehydrogenas e measurement [facility] Lactate dehydrogenas e measurement [facility] Lactate dehydrogenas e measurement [facility] Leukocytes [#/volume ] in Blood [facility] Leukocytes [#/volume ] in Blood [facility] Leukocytes [#/volume ] in Blood [facility] Leukocytes [#/volume ] in Blood [facility] Lipid 1996 panel - S nathalia or Plasma [facility] Mean corpuscular hem oglobin concentration determination [facility] Mean corpuscular hem oglobin concentration determination [facility] Mean corpuscular hem oglobin concentration determination [facility] Mean corpuscular hem oglobin concentration determination [facility] Mean corpuscular hem oglobin determination [facility] Mean corpuscular hem oglobin determination [facility] Mean corpuscular hem oglobin determination [facility] Mean corpuscular hem oglobin determination [facility] Measurement of Borre milind burgdorferi antibody [facility] Measurement of keton es in urine using dipstick [facility] Measurement of occul t blood in stool specimen using immunoassay [facility] Measurement of renal function [facility] Measurement of renal function [facility] Measurement of renal function [facility] Measurement of renal function [facility] Measurement of respi ratory function [facility] Microscopic urinalysis [facility] MR Lower Extremity [facility] Neutrophil count [facility] Neutrophil count [facility] Neutrophil count [facility] Neutrophil count [facility] Neutrophil percent differential count [facility] Neutrophil percent differential count [facility] Neutrophil percent differential count [facility] Neutrophil percent differential count [facility] Patient Education [facility] Work Phone: Patient referral [facility] Work Phone: pH of Urine [facility] Platelets [#/volume] in Blood [facility] Platelets [#/volume] in Blood [facility] Platelets [#/volume] in Blood [facility] Platelets [#/volume] in Blood [facility] Potassium [Moles/vol ume] in Serum or Plasma [facility] Potassium [Moles/vol ume] in Serum or Plasma [facility] Potassium [Moles/vol ume] in Serum or Plasma [facility] Potassium [Moles/vol ume] in Serum or Plasma [facility] Procedure [facility] Red blood cell count [facility] Red blood cell count [facility] Red blood cell count [facility] Red blood cell count [facility] Red cell distributio n width determination [facility] Red cell distributio n width determination [facility] Red cell distributio n width determination [facility] Red cell distributio n width determination [facility] Reticulocyte count [facility] Work Phone: Reticulocyte count [facility] Sodium [Moles/volume ] in Serum or Plasma [facility] Sodium [Moles/volume ] in Serum or Plasma [facility] Sodium [Moles/volume ] in Serum or Plasma [facility] Sodium [Moles/volume ] in Serum or Plasma [facility] Specific gravity of Urine [facility] Thyroid stimulating hormone measurement [facility] Urea nitrogen [Mass/ volume] in Serum or Plasma [facility] Urea nitrogen [Mass/ volume] in Serum or Plasma [facility] Urea nitrogen [Mass/ volume] in Serum or Plasma [facility] Urea nitrogen [Mass/ volume] in Serum or Plasma [facility] Urinalysis, blood, qualitative [facility] Urine dipstick for glucose [facility] Urine dipstick for l eukocyte esterase [facility] Urine dipstick for nitrite [facility] Urine dipstick for protein [facility] Urine examination [facility] Urine microscopy: ep ithelial cells [facility] Urine Microscopy: wh ite cells [facility] Urobilinogen [Presen ce] in Urine [facility] US Carotid arteries [facility] US Heart 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 Gloria Hazel Work Phone: [facility] 06-23-2020 Covid (Pfizer) Dr. Gloria morrison Work Phone: [facility] 06-02-2020 Covid (Pfizer) Dr. Gloria morrison Work Phone: [facility] 03-02-[address] Gloria Hazel Work Phone: [facility] 03-02-2020 Dr. Ra lewis DPM Work Phone: [facility] 05-13-2016 pneumococcal polysaccharide vaccine, [address] Gloria Hazel Work Phone: [facility] 02-17-2015 tetanus toxoid, redu nanci diphtheria toxoid, and acellular pertussis vaccine, adsorbed Dr. Gloria Hazel Work Phone: [facility] 05-30-2007 pneumococcal conjuga te vaccine, [address] Gloria Hazel Work Phone: [facility] Payers Date Payer Category Payer Self-pay [id number] 2020 Medicare MMO MEDICARE MMO MEDADVANTAGE O [id number] 2020-Present [phone] [address] [place] [address] HMO [id number] 2020 Medicare MMO MEDICARE MMO MEDADVANTAGE O [id number] 2020-Present [phone] [address] [place] [address] [facility] [id number] 2020 Medicare (Managed Care) MMO SYLWIA DVANTAGE HMO [id number] 2020 Medicare [id number] 2014 Medicare [id number] 2006 Unknown [id number] 27 Medicare [id number] Unknown [id number] 2.840.1.750037.3.579 .2.462 Unknown [id number] 2.840.1.885878.3.579 .2.462 Unknown [id number] 2.840.1.646173.3.579 .2.462 Unknown [id number] 2.840.1.574125.3.579 .2.462 Unknown [id number] 2.840.1.108792.3.579 .2.462 Unknown [id number] 2.16.840.1.569691.3.579 .2.462 Unknown [id number] 2.16.840.1.710271.3.579 .2.462 Unknown [id number] 2.16.840.1.421141.3.579 .2.462 Unknown [id number] 2.16840.1.556126.3.579 .2.462 Unknown [id number] 2.16840.1.818378.3.579 .2.462 Unknown [id number] 2.840.1.189854.3.579 .2.462 Unknown [id number] 2.840.1.915680.3.579 .2.462 Unknown [id number] 2.840.1.002188.3.579 .2.462 Unknown [id number] 2.840.1.325886.3.579 .2.462 Unknown [id number] 2.840.1.069578.3.579 .2.462 Unknown [id number] 2.840.1.220988.3.579 .2.462 Unknown [id number] 2.840.1.459180.3.579 .2.462 Unknown [id number] 2.840.1.986289.3.579 .2.462 Unknown [id number] 2.840.1.808922.3.579 .2.462 Unknown [id number] 2.840.1.551237.3.579 .2.462 Unknown [id number] 2.16840.1.267784.3.579 .2.462 Unknown [id number] 2.16840.1.099041.3.579 .2.462 Unknown [id number] 2.840.1.327113.3.579 .2.462 Unknown [id number] 2.16.840.1.244190.3.579 .2.462 Unknown [id number] 2.16.840.1.805962.3.579 .2.462 Unknown [id number] 2.16.840.1.442622.3.579 .2.462 Unknown [id number] 2.16.840.1.508195.3.579 .2.462 Unknown [id number] 2.16.840.1.376716.3.579 .2.462 Unknown [id number] 2.16.840.1.872717.3.579 .2.462 Unknown [id number] 2.16.840.1.728963.3.579 .2.462 Unknown [id number] 2.16.840.1.645452.3.579 .2.462 Unknown [id number] 2.840.1.419487.3.579 .2.462 Social History Date Type Detail Facility Start: 08-09-2021 End: 03-10-2023 Tobacco smoking status [facility] Unknown if ever smoked [facility] Start: 09-05-2020 None [facility] Start: 09-05-2020 With Family [facility] Start: 08-17-2020 Non-smoker [facility] Start: 1940 Sex Assigned At Male [facility] Start: 04-24-2016 End: 01-08-2025 Tobacco smoking status IDIS Ex-smoker [facility] Start: 04-24-2016 Tobacco use and exposure Smokeless tobacco non-user [facility] Start: 10-27-2021 End: 02-12-2025 Alcohol intake Not Asked [facility] Start: 1940 Sex Assigned At Not on file [facility] Start: 10-17-2021 End: 10-27-2021 Exposure to SARS-CoV-2 (event) Not sure [facility] Work Phone: History of tobacco use Current smoker [facility] Start: 12-27-2022 End: 02-12-2025 History of Social function [facility] Start: 12-27-2022 End: 02-12-2025 Tobacco use panel [facility] Start: 04-29-2012 National Score (1-100), lower number is lower risk Not on file [facility] Start: 08-27-2024 Sex Male (finding) [facility] Start: 02-12-2025 Tobacco use and exposure Former smokeless tobacco user [facility] End: 05-29-1969 History of tobacco use User of smokeless tobacco [facility] Medical Equipment Procedure Code Equipment Code Equipment Origin al Text Equipment Identifier Dates PATCH,AMNION 2X3CM FDA Start: 05-07-2020 PATCH,AMNION 2X3CM FDA Start: 05-07-2020 PATCH,AMNION 2X3CM FDA Start: 05-07-2020 PATCH,AMNION 2X3CM FDA Start: 05-07-2020 PATCH,AMNION 2X3CM FDA Start: 05-07-2020 PATCH,AMNION 2X3CM FDA Start: 05-07-2020 PATCH,AMNION 2X3CM FDA Start: 05-07-2020 PATCH,AMNION 2X3CM FDA Start: 05-07-2020 PATCH,AMNION 2X3CM FDA Start: 05-07-2020 PATCH,AMNION 2X3CM FDA Start: 05-07-2020 PATCH,AMNION 2X3CM FDA Start: 05-07-2020 PATCH,AMNION 2X3CM FDA Start: 05-07-2020 PATCH,AMNION 2X3CM FDA Start: 05-07-2020 PATCH,AMNION 2X3CM FDA Start: 05-07-2020 PATCH,AMNION 2X3CM FDA Start: 05-07-2020 PATCH,AMNION 2X3CM FDA Start: 05-07-2020 PATCH,AMNION 2X3CM FDA Start: 05-07-2020 PATCH,AMNION 2X3CM FDA Start: 05-07-2020 PATCH,AMNION 2X3CM FDA Start: 05-07-2020 PATCH,AMNION 2X3CM FDA Start: 05-07-2020 PATCH,AMNION 2X3CM FDA Start: 05-07-2020 PATCH,AMNION 2X3CM FDA Start: 05-07-2020 PATCH,AMNION 2X3CM FDA Start: 05-07-2020 PATCH,AMNION 2X3CM FDA Start: 05-07-2020 PATCH,AMNION 2X3CM FDA Start: 05-07-2020 PATCH,AMNION 2X3CM FDA Start: 05-07-2020 PATCH,AMNION 2X3CM FDA Start: 05-07-2020 PATCH,AMNION 2X3CM FDA Start: 05-07-2020 PATCH,AMNION 2X3CM FDA Start: 05-07-2020 PATCH,AMNION 2X3CM FDA Start: 05-07-2020 PATCH,AMNION 2X3CM FDA Start: 05-07-2020 PATCH,AMNION 2X3CM FDA Start: 05-07-2020 PATCH,AMNION 2X3CM FDA Start: 05-07-2020 PATCH,AMNION 2X3CM FDA Start: 05-07-2020 PATCH,AMNION 2X3CM FDA Start: 05-07-2020 PATCH,AMNION 2X3CM FDA Start: 05-07-2020 PATCH,AMNION 2X3CM FDA Start: 05-07-2020 PATCH,AMNION 2X3CM FDA Start: 05-07-2020 FDA Start: 05-07-2020 FDA Start: 05-07-2020 FDA Start: 05-07-2020 FDA Start: 05-07-2020 FDA Start: 05-07-2020 FDA Start: 05-07-2020 FDA Start: 05-07-2020 FDA Start: 05-07-2020 FDA Start: 05-07-2020 FDA Start: 05-07-2020 FDA Start: 05-07-2020 FDA Start: 05-07-2020 FDA Start: 05-07-2020 FDA Start: 05-07-2020 FDA Start: 05-07-2020 FDA Start: 05-07-2020 FDA Start: 05-07-2020 FDA Start: 05-07-2020 FDA Start: 05-07-2020 FDA Start: 05-07-2020 FDA Start: 05-07-2020 FDA Start: 05-07-2020 PATCH,AMNION 2X3CM FDA Start: 05-07-2020 PATCH,AMNION 2X3CM FDA Start: 05-07-2020 PATCH,AMNION 2X3CM FDA Start: 05-07-2020 PATCH,AMNION 2X3CM FDA Start: 05-07-2020 PATCH,AMNION 2X3CM FDA Start: 05-07-2020 PATCH,AMNION 2X3CM FDA Start: 05-07-2020 FDA Start: 05-07-2020 FDA Start: 05-07-2020 PATCH,AMNION 2X3CM FDA Start: 05-07-2020 PATCH,AMNION 2X3CM FDA Start: 05-07-2020 FDA Start: 05-07-2020 FDA Start: 05-07-2020 PATCH,AMNION 2X3CM FDA Start: 05-07-2020 PATCH,AMNION 2X3CM FDA Start: 05-07-2020 PATCH,AMNION 2X3CM FDA Start: 05-07-2020 PATCH,AMNION 2X3CM FDA Start: 05-07-2020 PATCH,AMNION 2X3CM FDA Start: 05-07-2020 PATCH,AMNION 2X3CM FDA Start: 05-07-2020 PATCH,AMNION 2X3CM FDA Start: 05-07-2020 PATCH,AMNION 2X3CM FDA Start: 05-07-2020 PATCH,AMNION 2X3CM FDA Start: 05-07-2020 PATCH,AMNION 2X3CM FDA Start: 05-07-2020 PATCH,AMNION 2X3CM FDA Start: 05-07-2020 PATCH,AMNION 2X3CM FDA Start: 05-07-2020 PATCH,AMNION 2X3CM FDA Start: 05-07-2020 PATCH,AMNION 2X3CM FDA Start: 05-07-2020 PATCH,AMNION 2X3CM FDA Start: 05-07-2020 PATCH,AMNION 2X3CM FDA Start: 05-07-2020 PATCH,AMNION 2X3CM FDA Start: 05-07-2020 PATCH,AMNION 2X3CM FDA Start: 05-07-2020 PATCH,AMNION 2X3CM FDA Start: 05-07-2020 PATCH,AMNION 2X3CM FDA Start: 05-07-2020 PATCH,AMNION 2X3CM FDA Start: 05-07-2020 PATCH,AMNION 2X3CM FDA Start: 05-07-2020 PATCH,AMNION 2X3CM FDA Start: 05-07-2020 PATCH,AMNION 2X3CM FDA Start: 05-07-2020 PATCH,AMNION 2X3CM FDA Start: 05-07-2020 PATCH,AMNION 2X3CM FDA Start: 05-07-2020 FDA Start: 05-07-2020 FDA Start: 05-07-2020 FDA Start: 05-07-2020 FDA Start: 05-07-2020 FDA Start: 05-07-2020 FDA Start: 05-07-2020 FDA Start: 05-07-2020 FDA Start: 05-07-2020 FDA Start: 05-07-2020 FDA Start: 05-07-2020 FDA Start: 05-07-2020 FDA Start: 05-07-2020 FDA Start: 05-07-2020 FDA Start: 05-07-2020 FDA Start: 05-07-2020 FDA Start: 05-07-2020 FDA Start: 05-07-2020 FDA Start: 05-07-2020 FDA Start: 05-07-2020 FDA Start: 05-07-2020 Goals Date Patient Goal Desired Activity /State Personal health goal Personal health goal Personal health goal Functional Status Date Assessment Result Facility 06-03-2023 Functional status Ambulates [facility] Work Phone: 01-27-2023 Functional status Ambulates;Stephen r;Bathroom Privilege;Active [employer] of Motion;Assist with Urinal [facility] Work Phone: 01-20-2023 Functional status Chair [facility] Work Phone: 01-19-2023 Functional status Standard Walker [facility] Work Phone: 01-18-2023 Functional status Fair [facility] Work Phone: 01-06-2023 Functional status With Assist of 2 [facility] Work Phone: 01-06-2023 Functional status Ambulates [facility] Work Phone: 10-22-2022 Functional status Chair;Assist with Urina l [facility] Work Phone: 09-25-2022 Functional status Ambulates [facility] Work Phone: 08-17-2020 Are you deaf, or do you have serious difficulty hearing No 08/17/2020 1:12 PM Delores Carlos RN No [facility] 08-17-2020 Are you blind, or do you have serious difficulty seeing, even when wearing glasses No 08/17/2020 1:12 PM Delores Carlos, ELROY No [facility] 08-17-2020 Do you have serious difficulty walking or climbing stairs Yes 08/17/2020 1:12 PM Delores Carlos RN Yes [facility] 08-17-2020 Do you have difficul ty dressing or bathing Yes 08/17/2020 1:12 PM EDT Delores Lassiter RN Yes [facility] 08-17-2020 Because of a physica l, mental, or emotional condition, do you have difficulty doing errands alone such as visiting a physician's office or shopping Yes 08/17/2020 1:12 PM EDDelores Pinto RN Yes [facility] Mental Status Date Assessment Result Facility 03-12-2025 Cognitive function Voice/Name [facility] Work Phone: 10-25-2024 Cognitive function Awake;Alert;A ppropriate;Fol lows Commands [facility] Work Phone: 08-26-2024 Cognitive function [facility]/Name [facility] Work Phone: 07-02-2024 Cognitive function Awake;Alert;A ppropriate;Fol lows Commands [facility] Work Phone: 09-25-2023 Cognitive function Awake;Alert;A ppropriate;Fol lows Commands [facility] Work Phone: 07-21-2023 Cognitive function Voice/Name [facility] Work Phone: 06-22-2023 Cognitive function Awake;Alert;A ppropriate;Fol lows Commands [facility] Work Phone: 06-02-2023 Cognitive function Voice/Name [facility] Work Phone: 05-26-2023 Cognitive function Voice/Name [facility] Work Phone: 03-31-2023 Cognitive function Awake;Alert;A ppropriate;Fol lows Commands [facility] Work Phone: 01-27-2023 Cognitive function Voice/Name [facility] Work Phone: 01-21-2023 Cognitive function Voice/Name [facility] Work Phone: 01-06-2023 Cognitive function Voice/Name [facility] Work Phone: 11-15-2022 Cognitive function Voice/Name [facility] Work Phone: 11-10-2022 Cognitive function Voice/Name [facility] Work Phone: 10-21-2022 Cognitive function Awake;Drowsy [facility] Work Phone: 10-21-2022 Cognitive function Voice/Name [facility] Work Phone: 10-21-2022 Cognitive function Appropriate;Cooperativ e [facility] Work Phone: 09-25-2022 Cognitive function Voice/Name [facility] Work Phone: 09-23-2022 Cognitive function Level Of Cons ciousness Awake;Alert;Appropriate;Fol lows Commands [facility] Work Phone: 09-20-2022 Cognitive function Voice/Name [facility] Work Phone: 07-27-2022 Cognitive function Voice/Name;Touch/Shaki ng [facility] Work Phone: 05-31-2022 Cognitive function Level Of Cons ciousness Awake;Alert;Appropriate;Fol lows Commands [facility] Work Phone: 04-04-2022 Cognitive function Voice/Name [facility] Work Phone: 02-07-2022 Cognitive function Awake;Alert;A ppropriate;Fol lows Commands [facility] Work Phone: 12-08-2021 Cognitive function Voice/Name [facility] Work Phone: 10-31-2021 Cognitive function Level Of Cons ciousness Awake;Alert;Appropriate;Fol lows Commands [facility] Work Phone: 09-27-2021 Cognitive function Awake;Alert;A ppropriate;Fol lows Commands [facility] Work Phone: 08-09-2021 Cognitive function Awake;Alert;A ppropriate;Fol lows Commands [facility] Work Phone: 07-26-2021 Cognitive function Voice/Name [facility] Work Phone: 07-26-2021 Cognitive function Patient Anton monsalve Person;Place;Time [facility] Work Phone: 05-26-2021 Cognitive function Voice/Name [facility] Work Phone: 08-17-2020 Because of a physica l, mental, or emotional condition, do you have serious difficulty concentrating, remembering, or making decisions No 08/17/2020 1:12 PM EDT Delores Lassiter, ELROY [facility] Clinical Notes 08-06-2020 to 04-01-2025 Note Date & Type Note Facility 04-01-2025 Note HNO ID: [id number] Author: MEGHANA FLOR APRN.CUSTOM PROTECTION OFFICER Service: ? Author Type: Nurse Practitioner Type: Progress Notes Filed: 04/02/2025 15:37 Note Text: INTERVENTIONAL CARDIOLOGY SERVICE Routine Follow-Up PRIMARY CARE PHYSICIAN: Jorge Hilton [address] [place] [id number] [place] OPERATOR: Dr. Nargis Rodriguez Chief Complaint Patient presents with: CARD Follow Up 1 Month: (reassess symtpoms)Valve Clinic- 1 month p/o - 5M Walk,EKG,KCCQ HISTORY OF PRESENT ILLNESS: Mr. 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 Subsequent heart team review recommended to pursue PCI to SEWER DIGGER of LAD prior, with symptom reassessment. He underwent successful planned PCI to SEWER DIGGER mid LAD 02/25/25. Post procedurally in CVICU, noted to have asymptomatic bradycardia 55-60 bpm, dipping into 40s at times (thought to be vaso-vagal response to pain at hematoma site), and mild hematoma at right groin vascular access site. Heart rates and hematoma found to be stable as he continued to recover, and he was discharged to home in stable condition. Today, he presents with his daughter for close monitoring of symptoms post PCI in setting of known severe . He continues to experience significant dyspnea with minimal exertion, such as walking short distances on flat ground. He describes walking from the parking lot to a building as an absolute struggle. He denies chest pain, lightheadedness, dizziness, or syncope. He breathes better when lying flat and does not wake up gasping for air. He denies coughing. He reports chronic fatigue and notes that he has to take short steps when walking. He also experiences chronic lower extremity edema, more pronounced on the right side, which has been present for years. He denies any changes in the edema. He reports chronic cyanosis of the nails, palms of hands, and lips, which has been present since his last visit. He also notes tingling in his thumb and index fingers bilaterally chronically.. He reports chronic pain due to RA, which he rates as 10 plus. He denies any open sores or unhealing wounds. He reports crusty blood in the tissue when blowing his nose but denies active nosebleeds or abnormal bleeding. He mentions a recent senior living, which has alleviated the need to arrive at work early in the morning. He is complaint with his current medication regimen which includes but is not limited to amiodarone, Plavix, Xarelto, and sulfasalazine. Dental clearance obtained, has been seen by [facility] Dr. Tripp, and his case has been previously reviewed at multidisciplinary heart team meeting. Subjective Review of Systems Constitutional: Positive for malaise/fatigue. Negative for chills, diaphoresis and fever. HENT: Positive for nosebleeds. Negative for congestion, hearing loss and tinnitus. Eyes: Negative for blurred vision and photophobia. Respiratory: Positive for shortness of breath. Negative for cough, hemoptysis, sputum production and wheezing. Cardiovascular: Positive for leg swelling. Negative for chest pain, palpitations, orthopnea, claudication and PND. Gastrointestinal: Negative for blood in stool, constipation, diarrhea, heartburn, nausea and vomiting. Genitourinary: Negative for hematuria. Musculoskeletal: Negative for falls and myalgias. Skin: Negative for rash. Neurological: Negative for dizziness, focal weakness and loss of consciousness. Endo/Heme/Allergies: Does not bruise/bleed easily. Psychiatric/Behavioral: Negative for depression and memory loss. The patient is not nervous/anxious. PAST MEDICAL HISTORY Diagnosis Date Atrial fibrillation (HCC) Cardiomyopathy, ischemic Chronic systolic heart failure (HCC) Coronary artery disease Nonrheumatic aortic valve stenosis History reviewed. No pertinent surgical history. History reviewed. No pertinent family history. SOCIAL HISTORY[1] ALLERGIES No Known Allergies Medications: Current Outpatient Medications Medication Sig Dispense Refill clopidogrel (PLAVIX) 75 mg tablet Take 1 tablet by mouth once daily. Patient should start on February 27, 2025. 90 tablet 3 melatonin 3 mg tablet Take 3 tablets by mouth once daily. 90 tablet 2 gabapentin (NEURONTIN) 300 mg capsule Take 1 capsule by mouth daily at bedtime for 90 days. 30 capsule 2 rivaroxaban (XARELTO) 15 mg tablet Take 15 mg by mouth daily with dinner. finasteride (PROSCAR) 5 mg tablet Take 5 mg by mouth once daily. acetaminophen (TYLENOL) 325 mg tablet Take 2 tablets by mouth every 4 h (more content not included)... [facility] 04-01-2025 Note HNO ID: [id number] Author: ASIA CAST MA Service: ? Author Type: As[employer]er [employer] Type: Progress Notes Filed: 04/01/2025 14:02 Note Text: CARDIAC REHAB 5 METER WALK TEST SERVICE DATE: 04/01/2025 SERVICE TIME: 200 ASSESSMENT: Patient unable to complete walk A. B. C. SIGNATURE: Asia Cast MA PATIENT NAME: Bryce Ann DATE: April 01, 2025 TIME: 1:54 PM PAGER/CONTACT #: [phone] [facility] 03-19-2025 Progress note Note Date/Time March 19, 2025 4:48pm [facility] [address] [place], [place] [address] OFFICE VISIT Date of Service: 03/19/25 MR#: [id number] Acct: [id number] Name: BRYCE ANN Rep #: [id number] : 1940 Provider: MARTIN Leonardo Age/Sex: 84/M Location: [facility] Status: Signed HPI HPI History of Present Illness Details: This is a 84-year-old gentleman that presents here today for a cardiovascular outpatient follow-up of a diagnosis of CAD, non-STEMI, status post OM2 PCI, paroxysmal SVT/atrial fibrillation, and aortic valve stenosis. On August 10, 2020he was admitted to [facility]. He was admitted for an acute non-STEMI. He was on Eliquis and this was held for his heart catheterization onAugust 06, 2020. He did undergo a heart catheterization and stenting to his OM 2. They were unable to stent his LAD that was noted to have 100% occlusion. During that evaluation he was noted to be hypotensive and was noted to be in SVT. He did not convert with 12 mg of adenosine. He was transferred to the intensive care unit. He did receive IV Cardizem. He did convert back to sinus rhythm. He was started on oral amiodarone. He was transferred to [facility] for evaluation of his LAD. He was evaluated by cardiology and it was recommended that he undergo a Holter monitor to assess for conduction deficits. It was not felt that he was a surgical candidate for single-vessel bypass due tohis calcified LAD system. He was discharged with medical management and a 14-day monitor. He was able to wear this for half the time. He was seen at [facility] in September 2022 for GI bleed. He underwent an EGD that showed noactive bleeding. He was noted to be hypoxic with ambulation prior to discharge. He refused oxygen therapy. Heart catheterization January 2025 showed LAD withchronic total occlusion in the mid vessel with bridging collaterals and right toleft collaterals. He was noted to have mild diffuse LCx disease with patent stent OM1 and mild diffuse RCA disease. Echocardiogram with [facility] on02/12/2025 showed LV function 64?5% and severe aortic valve stenosis with mean aortic valve gradient 34 mmHg, aortic valve area 0.61 cm?, peak aortic valve gradient 58 mm minute, and dimensionless valve index of 0.22. He was seen with [facility] team in January 2025 for recommendation of aortic valve replacement on account of low flow low gradient severe aortic valve stenosis. Hehas appointment on 04/01 with [facility] for further valve discussion. He denies chest, arm, jaw, or neck discomfort. He denies palpitations. He acknowledges bilateral lower extremity edema. He denies claudication. He acknowledges shortness of breath at rest and shortness breath with activity. Hedenies orthopnea, cough, or PND. He denies lightheadedness, dizziness, near-syncope, or syncope. He acknowledges fatigue. Intake Vital Signs 01/10/25 11:54 03/14/25 15:46 03/19/25 11:21 Height 5 ft 5 ft 5 ft Weight: 140 lb 134 lb BMI 27.3 26.2 BP 117/84 H 133/61 H Blood Pressure Location Lt brachial Lt brachial Position Sitting Sitting Respiration 18 Pulse 101 H 60 Pulse Source Monitor Monitor Pulse Oximetry (%) 96 92 Oxygen Delivery Method room air Intake Visit Reasons: 6 M FU Hostel Manager Required: No Is patient in pain?: No Allergies No Known Allergies Allergy (Verified 03/19/25 15:08) Medications ?Medication ?Instructions ?Recorded ?Confirmed ?Type tamsulosin 0.4 mg capsule 0.4 mg PO DAILY@1800 Retenti on 07/18/20 03/19/25 History finasteride 1 mg tablet 5 mg PO DAILY prostate 12/3003/19/25 History golimumab 12.5 mg/mL intravenous 12.5 mg IV .[id number] i njection 05/31/22 03/19/25 History solution (Simponi ARIA) gabapentin 300 mg capsule 300 mg PO TID PRN PRN NERVE PAIN 10/20/22 03/19/25 History trazodone 100 mg tablet 100 mg PO QHS Check with estuardo oviedo 11/14/22 03/19/25 History doctor acetaminophen 500 mg tablet 1,000 mg (2 x 500 mg) PO Q 8 #0 tabs 01/24/23 03/19/25 Rx denosumab 60 mg/mL subcutaneous 60 mg subcut [id number] #1 mL 03/10/23 03/19/25 Rx syringe (Prolia) methotrexate sodium 2.5 mg tablet 20 mg PO QWEEK 06/0103/19/25 History sulfasalazine 500 mg 0.5 g PO Q12H 06/01/2303/19 History tablet,delayed release ascorbic acid (vitamin C) 1,000 mg 1,000 mg PO QDAY 03/19/25 History capsule hydrocodone 7.5 mg-acetaminophen 1 tab PO BID pain 03/19/25 History 325 mg tablet mecobalamin (vitamin B12) 2,500 2,500 mcg PO DAILY 03/19/25 History mcg chewable tablet mirtazapine 15 mg tablet 7.5 mg PO QHS 10/23/2403/19 History oxybutynin chloride 10 mg 10 mg PO QDAY 10/23/2403/19 History tablet,extended release 24 hr rivaroxaban 15 mg tablet (Xarelto) 15 mg PO QDAY 90 da ys #90 tabs 10/23/24 03/19/25 Rx spironolactone 25 mg tablet 25 mg PO DAILY water pill #90 tabs 10/23/24 03/19/25 Rx turmeric root extract 500 mg 500 mg PO QDAY 10/23/24 1 History capsule atorvastatin 40 mg tablet (Lipitor) 40 mg PO QHS Katarina sterol #90 tabs 12/09/24 03/19/25 Rx polysaccharide iron complex 150 mg 150 mg PO QDAY 90 d ays #90 caps 12/13/24 03/19/25 Rx iron capsule (Ferrex) amiodarone 200 mg tablet 200 mg PO DAILY heart rate # 90 tabs 12/17/24 03/19/25 R x furosemide 40 mg tablet 40 mg PO 3XW #90 tabs 03/19/25 Rx Ejection fraction %: 50 Have you fallen in the past year?: Yes [facility] History (Reviewed 03/19/25 @ 15:32 by Salvatore Leonardo PREVENTION COORDINATOR, PREVENTION COORDINATOR-C) Severe aortic stenosis Bruising Walker as ambulation aid Bladder disease Prostate disease Shortness of breath on exertion Leg cramps History of pain when walking History of CHF (congestive heart failure) History of atrial fibrillation History of echocardiogram Cardiology follow-up encounter Right rotator cuff tear arthropathy Right shoulder pain intermediate (current) use of anticoagulants Secondary adrenal insufficiency Vitamin D deficiency Chronic edema Wears glasses Former smoker History of stress test History of heart attack Anemia Coronary artery disease Atherosclerotic heart disease of [place] coronary artery without angina pectoris BPH (benign prostatic hyperplasia) GERD (gastroesophageal reflux disease) Lumbar spinal stenosis Atrial fibrillation PAT (paroxysmal atrial tachycardia) SVT (supraventricular tachycardia) Rheumatoid arthritis Surgical History (Reviewed 03/19/25 @ 15:32 by Salvatore Leonardo PREVENTION COORDINATOR, PREVENTION COORDINATOR-C) History of cardiac catheterization History of coronary artery stent placement Hx of colectomy Hx of transurethral resection of prostate Hx of laminectomy History of lumbar surgery History of coronary artery stent placement (08/06/20) H/O colonoscopy S/P left colectomy S/P appendectomy S/P hemorrhoidectomy S/P vasectomy S/P laparoscopic cholecystectomy H/O umbilical hernia repair S/P inguinal hernia repair S/P rotator cuff repair S/P cataract surgery Family History (Reviewed 03/19/25 @ 15:32 by Salvatore Leonardo PREVENTION COORDINATOR, PREVENTION COORDINATOR-C) Father CVA (cerebral vascular accident) Brother CAD (coronary artery disease) CABG X 3 Mother CVA (cerebral vascular accident) Grandfather Cancer prostate Social History (Reviewed 03/19/25 @ 15:32 by Salvatore Leonardo PREVENTION COORDINATOR, PREVENTION COORDINATOR-C) household members: none housing: house current occupational status: retired Smoking Status: Former smoker how long ago did patient quit smokin years ago alcohol intake: never substance use type: does not use diet: low salt caffeine: Yes Type: coffee Number of servings: 4 ROS Const Const: Positive for fatigue; Negative for weakness, headache(s) or frequent falls Eyes Eyes: Negative for blurry vision ENT ENT: Negative for headache(s), dizziness or Nosebleed/epistaxis Cardio Chest Pain: No Palpitations: No Edema: Bilateral and None Muscle aches with walking: None Resp Respiratory: Positive for SOB with activity and SOB at rest; Negative for SOB orthopnea\SOB lying down GI GI: Negative nausea, vomiting, heartburn, bright, red blood in stools or black,tarry stools : Negative for hematuria Musc Musc: Negative for muscle aches/ myalgia Skin Skin: Negative non-healing lesions or rash Neuro Neuro: Negative for dizziness, lightheadedness, near syncope, syncope, frequent falls, headache(s), weakness or blurry vision Endo Endo: Positive for fatigue Allergy Allergy/Immunology: Negative for rash Cardiology Exam Const Appearance: cooperative, healthy appearing, comfortable and no acute distress Nutritional Appearance: well nourished and overweight Orientation: alert, awake and oriented x3 Head Head: normal to inspection Ears: hearing grossly normal bilaterally Nose: external nose normal Face and Sinus: face symmetric Mouth: moist mucous membranes Eyes General: appearance normal, both eyes and all related structures Eyelids: eyelids normal EOM: EOM intact bilaterally Neck Neck: normal visual inspection and no JVD Carotids: normal carotid upstroke Chest Chest inspection: normal inspection of the chest, symmetric chest movement and normal respiratory effort; Negative cough Auscultation: Bilateral: Clear to Auscultation Cardio Rate: regular rate Rhythm: regular rhythm Heart sounds: S1 normal, S2 normal and murmur; Negative rub or gallop Murmur: Grade 3/6 and KONSTANTIN loudest primary aortic area GI GI: normal to inspection Neuro General: patient alert, patient awake, patient oriented x3 and CN's II-XI intactbilaterally Skin Skin: no rashes or lesions noted Extremities Pulses: Normal: Right Posterior Tibial Pulse, Left Posterior Tibial Pulse, RightRadial Pulse and Left Radial Pulse Lower Extremity Edema: None: Bilateral Psych Psychological: normal affect Supplemental Info Supplemental Information Echo Complete W/ Contrast 11/2024 Interpretation Summary Apical akinesis to dyskinesis. Estimated LVEF 40%. Grade 2 diastolic function with elevated left atrial filling pressures. Cannot exclude small LV apical thrombus. Recommend cardiac MRI or NONI for further evaluation. Moderately dilated left atrium. Mildly dilated right atrium. Moderate (2+) mitral valve insufficiency. Mild tricuspid valve insufficiency. Estimated RVSP 53 mmHg. Moderately calcified aortic valve. Severe aortic valve stenosis. Planimetered aortic valve area 0.87 cm??. Mean peak gradient 30 mmHg. Mild aortic valve regurgitation. Echocardiogram 09/23/2022: Interpretation Summary The estimated ejection fraction is 50 %. Unable to assess diastolic dysfunction. [place] : Hypokinetic. The left atrium is mildly enlarged. Trivial mitral valve insufficiency. Moderate aortic stenosis. Small pericardial effusion. Echocardiogram 01/27/2022: Interpretation Summary Segmental dysfunction with preserved ejection fraction (see wall motion). The estimated ejection fraction is 50 %. Apical false tendon noted. The left atrium is mildly enlarged. There is mild mitral annular calcification. Extension of the mitral annular calcification onto the base of the posterior mitral valve leaflet. Mild focal mitral valve calcification of the anterior leaflet. The mitral valve chordae are thickened and/or calcified. The mitral papillary muscle appears thickened and/or calcified. Mild-Moderate (1-2+) mitral valve insufficiency. Mild tricuspid valve insufficiency. Mild aortic stenosis. Trivial aortic valve insufficiency. Mild (1+) pulmonic valve insufficiency. Trivial pericardial effusion. There are no echocardiographic indications of cardiac tamponade. Right ventricular systolic pressure estimated to be 35 mmHg. Stage 2 diastolic dysfunction. Cardiac Intervention 08/06/2020: CONCLUSIONS CAD as described. No significant . Successful PCI on OM2 with GAGE. Unsuccessful PCI of SEWER DIGGER of LAD. RECOMMENDATIONS ASA Indefinitley Plavix for at least 12 months Follow up with Dr. Shields If patient has signs or symptoms of angina despite medical therapy, he may need re attempt at PCI of SEWER DIGGER of LAD or referral for ARELLANO to LAD CORONARY ANGIOGRAPHY DOMINANCE: Right Dominant LEFT HEART ASSESSMENT Left Ventricular Ejection Fraction: Not assessed LEFT MAIN: Mild luminal irregularities LEFT ANTERIOR DESCENDING ARTERY: MID LAD: 100 % Stenosis CIRCUMFLEX ARTERY: Mild luminal irregularities OM 2: Mid - 90 % Stenosis RIGHT CORONARY ARTERY: Mild luminal irregularities RT PDA: Proximal - 30-40 % Stenosis VALVE FINDINGS: No Aortic Valve Stenosis PCI 08/06/2020: OM2: PCI/GAGE: Synergy: 2.5 x 8 and 2.5 x 12 Carotid Duplex Ultrasound 10/09/2020: Interpretation Summary Irregular calcific plaque of the proximal right internal carotid artery with less than 50% stenosis Less than 50% stenosis right external carotid artery Extensive heterogenous calcific plaque with shadowing at the proximal left internal carotid artery with less than 50% stenosis. Less than 50% stenosis left external carotid artery Patent and antegrade vertebral arteries bilaterally 20-day event monitor July?August 2020: Average heart rate 68 beats minute. Low heart rate 50 beats minute. High heart rate 120 beats minute. No atrial fibrillation. No VT. No pauses. Labs: LDL Cholesterol, (0-130) 51 mg/dL HDL Cholesterol, (40-) 86 mg/dL Cholesterol, (200) 152 mg/dL Triglycerides, (-199) 76 mg/dL Diagnostics: Electrocardiogram Echocardiogram Stress Test Cardiac Intervention Chest X-Ray Chest CTA Abdomen/Pelvis CT Carotid Duplex Venous Doppler Study Pulmonary: Pulmonary Function Test Past Visits: Cardiology Visit Today Assessment and Plan Assessment and Plan (1) Paroxysmal atrial fibrillation: Status: Chronic Plan: [id number] score: 4 (age +2, CHF, CAD) Atrial fibrillation stage: 3A, paroxysmal 12 Lead EC03/19/2025-sinus rhythm first AV block at 58 bpm, WV interval 228, QRS 92, QTc 459, axis -57 degrees Echocardiogram: 12/04/2024-EF 40%, moderately enlarged left atrium, mildly enlarged right atrium Antiarrhythmic: Amiodarone 200 mg p.o. daily Anticoagulation/CVA Protection: Xarelto 15 mg p.o. daily He will continue current medical therapy and we will continue to monitor. (2) Encounter for monitoring amiodarone therapy: Status: Chronic Plan: He will continue regular laboratory testing to assess thyroid and liver function. He will also continue with chest x-ray and pulmonary function test asneeded. (3) History of coronary artery stent placement: Status: Chronic Comment: Successful PCI on OM2 with GAGE. Unsuccessful PCI of SEWER DIGGER of LAD per Dr. Scott 08/06/2020 Plan: He status post recent heart catheterization with [facility] in January 2025. Medical therapy was recommended. (4) Aortic valve stenosis: Status: Chronic Qualifiers: Cardiac valve disease etiology: nonrheumatic Qualified Code(s): I35.0 -Nonrheumatic aortic (valve) stenosis Plan: He is currently being worked up for aortic valve surgery. He has pending appointment March 2025 with [facility] to decide further. (5) Dyslipidemia: Status: Chronic Plan: He will continue atorvastatin. He will continue risk factor and lifestyle modification. Orders: Orders 12 Lead EKG performed by BMS Today I48.0 - Paroxysmal atrial fibrillation Medications: Changed From furosemide 40 mg PO QAM 90 tabs 3RF To furosemide 40 mg PO 3XW 90 tabs 3RF Plan Details Additional Comments: Thank you for allowing us to participate in the patients plan of care, if you have any questions please do not hesitate to call. Plan was reviewed with patient/family member along with red flag symptoms. Understanding was acknowledged. Questions were answered to apparent satisfaction. This note was generated using a voice recognition system and there may be incorrect words, spelling or punctuation that were not noted when reviewing the office note prior to saving. Portions of this documentation were copied and pasted from previous office visitnotes to provide a cohesive continuity of the history. The note has been reviewed, edited, and updated, as necessary. Follow Up: ? [facility] in February ([facility]) 3 Months (PREVENTION COORDINATOR/PA/AR) Coding Level of Care Code Off vis,est,level 4 Diagnoses Paroxysmal atrial fibrillation I48.0 Encounter for monitoring amiodarone therapy Z51.81; Z79.899 History of coronary artery stent placement Z95.5 Nonrheumatic aortic valve stenosis I35.0 Cardiac valve disease etiology: nonrheumatic Dyslipidemia E78.5 Coding Level of Care Code Off vis,est,level 4 Diagnoses Paroxysmal atrial fibrillation I48.0 Encounter for monitoring amiodarone therapy Z51.81; Z79.899 History of coronary artery stent placement Z95.5 Nonrheumatic aortic valve stenosis I35.0 Cardiac valve disease etiology: nonrheumatic Dyslipidemia E78.5 Clinical Quality Measures Falls Risk Screening/Assistive Devices Have you fallen in the past year?: Yes Cardiac Ejection fraction %: 50 03/19/25 1632 <Electronically signed by Salvatore Tellez PREVENTION COORDINATOR-C> Date _ Salvatore Leonardo NP PREVENTION COORDINATOR-C Cosigner Signature: Date (if applicable) CC: Dr. Jorge Hilton MD ~ [facility] Work Phone: [phone] 647-872010-17-2025 Progress note Author Jasbir Perez [facility] Note Date/Time March 14, 2025 4 :12pm [facility] [address] [place], [place] [address] OFFICE VISIT Date of Service: 03/14/25 MR#: [id number] Acct: [id number] Name: BRYCE ANN Rep #: [id number] : 1940 Provider: Dr. Jasbir Perez MD Age/Sex: 84/M Location: [facility] Status: Signed Intake Vital Signs 03/08/24 15:18 03/12/25 15:20 03/14/25 15:46 Height 5 ft 1 in 5 ft 5 ft Weight: 140 lb BMI 27.3 BP 117/84 H Blood Pressure Location Lt brachial Position Sitting Pulse 101 H Pulse Source Monitor Pulse Oximetry (%) 96 Oxygen Delivery Method room air Intake Visit Reasons: 1 Y FU Chief Complaint: Osteoporosis Is patient in pain?: Yes Allergies No Known Allergies Allergy (Verified 03/14/25 15:48) Medications ?Medication ?Instructions ?Recorded ?Confirmed ?Type tamsulosin 0.4 mg capsule 0.4 mg PO DAILY@1800 Retenti on 07/18/20 03/14/25 Hist ory finasteride 1 mg tablet 5 mg PO DAILY prostate 12/3003/14/25 History golimumab 12.5 mg/mL intravenous 12.5 mg IV .[id number] i njection 05/31/22 03/14/25 History solution (Simponi ARIA) gabapentin 300 mg capsule 300 mg PO TID PRN PRN NERVE PAIN 10/20/22 03/14/25 History trazodone 100 mg tablet 100 mg PO QHS Check with estuardo preet 11/14/22 03/14/25 History doctor acetaminophen 500 mg tablet 1,000 mg (2 x 500 mg) PO Q 8 #0 tabs 01/24/23 03/14/25 Rx denosumab 60 mg/mL subcutaneous 60 mg subcut [id number] #1 mL 03/10/23 03/14/25 Rx syringe (Prolia) methotrexate sodium 2.5 mg tablet 20 mg PO QWEEK 06/0103/14/25 History sulfasalazine 500 mg 0.5 g PO Q12H 06/01/2303/14 History tablet,delayed release ascorbic acid (vitamin C) 1,000 mg 1,000 mg PO QDAY 03/14/25 History capsule furosemide 40 mg tablet 40 mg PO QAM #90 tabs 03/14/25 Rx hydrocodone 7.5 mg-acetaminophen 1 tab PO BID pain 03/14/25 History 325 mg tablet mecobalamin (vitamin B12) 2,500 2,500 mcg PO DAILY 03/14/25 History mcg chewable tablet mirtazapine 15 mg tablet 7.5 mg PO QHS 10/23/2403/14 History oxybutynin chloride 10 mg 10 mg PO QDAY 10/23/2403/14 History tablet,extended release 24 hr rivaroxaban 15 mg tablet (Xarelto) 15 mg PO QDAY 90 da ys #90 tabs 10/23/24 03/14/25 Rx spironolactone 25 mg tablet 25 mg PO DAILY water pill #90 tabs 10/23/24 03/14/25 Rx turmeric root extract 500 mg 500 mg PO QDAY 10/23/24 1 History capsule atorvastatin 40 mg tablet (Lipitor) 40 mg PO QHS Katarina sterol #90 tabs 12/09/24 03/14/25 Rx polysaccharide iron complex 150 mg 150 mg PO QDAY 90 d ays #90 caps 12/13/24 03/14/25 Rx iron capsule (Ferrex) amiodarone 200 mg tablet 200 mg PO DAILY heart rate # 90 tabs 12/17/24 03/14/25 Rx Have you fallen in the past year?: Yes [facility] Medical History Severe aortic stenosis Bruising Walker as ambulation aid Bladder disease Prostate disease Shortness of breath on exertion Leg cramps History of pain when walking History of CHF (congestive heart failure) History of atrial fibrillation History of echocardiogram Cardiology follow-up encounter Right rotator cuff tear arthropathy Right shoulder pain intermediate (current) use of anticoagulants Secondary adrenal insufficiency Vitamin D deficiency Chronic edema Wears glasses Former smoker History of stress test History of heart attack Anemia Coronary artery disease Atherosclerotic heart disease of [place] coronary artery without angina pectoris BPH (benign prostatic hyperplasia) GERD (gastroesophageal reflux disease) Lumbar spinal stenosis Atrial fibrillation PAT (paroxysmal atrial tachycardia) SVT (supraventricular tachycardia) Rheumatoid arthritis Surgical History History of cardiac catheterization History of coronary artery stent placement Hx of colectomy Hx of transurethral resection of prostate Hx of laminectomy History of lumbar surgery History of coronary artery stent placement (08/06/20) H/O colonoscopy S/P left colectomy S/P appendectomy S/P hemorrhoidectomy S/P vasectomy S/P laparoscopic cholecystectomy H/O umbilical hernia repair S/P inguinal hernia repair S/P rotator cuff repair S/P cataract surgery Family History Father CVA (cerebral vascular accident) Brother CAD (coronary artery disease) CABG X 3 Mother CVA (cerebral vascular accident) Grandfather Cancer prostate Social History household members: none housing: house current occupational status: retired Smoking Status: Former smoker how long ago did patient quit smokin years ago alcohol intake: never substance use type: does not use diet: low salt caffeine: Yes Type: coffee Number of servings: 4 HPI HPI Chief Complaint: Osteoporosis Details: BRYCE ANN, is a 84 M who presents to the office today for follow up. He has longstanding history of rheumatoid arthritis treated with prednisone. He has take himself off of prednisone, he denies AI symptoms. He has multiple compression fractures of the spine: L1, L2, L3, L5, T11 and T12.He has had multiple rib fractures. He states he has not fallen. 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 He received his Prolia injection today. He states he will be getting aortic valve replacement soon. ROS Const Constitutional: No fatigue, weight change or change in appetite Eyes Eyes: No change in vision ENT ENT: No dizziness/vertigo or difficulty swallowing Cardio Cardiology: Positive for shortness of breath and dyspnea on exertion; No chest pain at rest, chest pain with exertion or palpitations Musc Musculoskeletal: Positive for abnormal gait and joint pain; No numbness or tingling Neuro Neurology: Positive for abnormal gait; No memory loss, numbness or tingling Psych Psychiatric: No change in appetite, No memory loss and No Thoughts of harming yourself/Others Resp Respiratory: No cough, chest congestion or shortness of breath Gastro GI: No abdominal pain, constipation, diarrhea or difficulty swallowing Genitourinary Male: No burning urination Skin Skin: No itchy eyes or wounds Endo Endocrine: No fatigue or weight change Aller/Imm Allergy/Immunologic: No itchy eyes Exam Const General: cooperative, healthy appearing, comfortable, no acute distress, well developed, not cushingoid and frail appearing Nutritional Appearance: well nourished Orientation: alert, awake and oriented x3 HENMT Head: normal to inspection Ears: hearing grossly normal bilaterally Nose: external nose normal Mouth: oral mucosae normal Eyes General: appearance normal, both eyes and all related structures Alignment and Position: alignment normal Periorbital: periorbital findings normal Eyelids: eyelids normal Conjunctivae: conjunctivae normal Neck Neck: normal visual inspection Neck mass: No Chest Chest palpation & inspection: normal inspection of the chest Resp Effort & Inspection: normal respiratory effort, able to speak in complete sentences, symmetric chest movement, no audible wheezes and no cough Cardio Rate: regular rate Rhythm: regular rhythm Musc Other: stigmata of RA, joint deformity Skin General: no rashes or lesions noted Neuro General: patient alert, patient awake and patient oriented x3 Cranial Nerves: CN's II-XI intact bilaterally Cognition: normal cognition Speech: speech normal Gait: gait assisted Method: walking stick Motor: muscle tone normal throughout Psych Appearance: grossly normal Mental Status: mental status grossly normal Mood: congruent mood Affect: normal affect Speech and Movement: speech and movement normal Attitude: cooperative Thought Process: normal Thought Content: normal Judgment: judgment good Office Procedures Injections Procedure performed by: Ty Alan Lot number: [id number] Operational Test Mechanic: [employer] date: 10/27/27 Dose of injection: 1 mL Site of injection: Sub-Q Medication Given: Yes Is this a patient provided medication?: No Office Meds Prolia 60 mg/mL subcutaneous syringe Performing Provider: Jasbir Perez MD Performing Location: [facility] Administered by: Ty Alan RN on 03/14/25 16:18 Dose Route Admin Location Dispensed Lot Number Expiration Date Pack age NDC NDC Operational Test Mechanic 60 mg subcut Right Arm 1 mL [id number] 10/27/27 27110-002-73 [id number] [employer] Clinical Quality Measures Falls Risk Screening/Assistive Devices Have you fallen in the past year?: Yes Assessment and Plan Assessment and Plan (1) Osteoporosis: Status: Chronic Qualifiers: Osteoporosis type: unspecified Presence of current pathological fracture: with current pathological fracture Encounter type: subsequent encounter Fracture healing: with routine healing Qualified Code(s): M80.00XD -Age-related osteoporosis with current pathological fracture, unspecified site, subsequent encounter for fracture with routine healing Plan: Continue Prolia Maintain normal calcium and vitamin D levels. Avoid falls. Exercise to maintain good balance. I have spent [30] minutes today reviewing labs, records and history. Time includes coordinating care, interpretation of tests, discussion with patient's other health care providers via telephone. This also includes time I spent with the patient for exam, treatment plan and education as well as documenting clinical information. Orders: Orders Prolia Injection 03/14/25 M81.0 - Age-related osteoporosis without current pathological fracture Coding Level of Care Code Off vis,est,level 4 Diagnoses Osteoporosis with current pathological fracture with routine healing, unspecified osteoporosis type, subsequent encounter M80.00XD Osteoporosis type: unspecified Presence of current pathological fracture: with current pathological fracture Encounter type: subsequent encounter Fracture healing: with routine healing 03/17/25 0827 <Electronically signed by Jasbir Perez MD> Date _ Jasbir Perez MD Cosigner Signature: Date (if applicable) CC: Dr. Jorge Hilton MD ~ [facility] Work Phone: 1(522) 994-675710-01-2025 NoteHNO ID: [id number] Author: JASSON CASAS MD Service: Cardiovascular Medicine Author Type: Physician Type: Progress Notes Filed: 02/26/2025 17:52 Note Text: PROGRESS NOTE CARDIOLOGY SERVICE SERVICE DATE: 02/26/2025 SERVICE TIME: 5:50 PM Subjective INTERIM HISTORY: Patient seen and evaluated. No new complaints. CARDIAC STATUS: Chest Pain: Improved Dyspnea: Improved Ankle Edema: Improved Arrhythmia: Improved Functional Capacity: Improved Objective PHYSICAL EXAM: Body mass index is 25.06 kg/m?. O2 Therapy: Room Air No data recorded Patient Vitals for the past 24 hrs: BP Temp Temp src Pulse Resp SpO2 02/26/25 1700 96/53 -- -- 65 20 91 % 02/26/25 1600 97/52 -- -- 61 26 95 % 02/26/25 1530 92/52 -- -- 70 21 94 % 02/26/25 1515 -- 36.5 ?C (97.7 ?F) -- -- -- -- 02/26/25 1504 98/52 -- -- -- -- -- 02/26/25 1500 91/57 -- -- 65 20 92 % 02/26/25 1430 (!) 92/46 -- -- 60 20 94 % 02/26/25 1402 98/52 -- -- -- -- -- 02/26/25 1400 (!) 82/44 -- -- 63 19 98 % 02/26/25 1330 (!) 82/48 -- -- (!) 59 19 97 % 02/26/25 1300 100/68 -- -- 68 18 95 % 02/26/25 1230 (!) 98/47 -- -- (!) 56 16 97 % 02/26/25 1200 107/57 36.4 ?C (97.6 ?F) Temporal 61 22 97 % 02/26/25 1130 93/52 -- -- 74 21 96 % 02/26/25 1100 (!) 91/47 -- -- (!) 59 22 94 % 02/26/25 1045 92/50 -- -- (!) 59 19 97 % 02/26/25 1030 94/51 -- -- 66 20 94 % 02/26/25 1005 (!) 99/49 -- -- 66 19 94 % 02/26/25 1000 88/52 -- -- 73 18 94 % 02/26/25 0900 91/50 -- -- 77 18 95 % 02/26/25 0800 104/61 -- -- (!) 59 21 95 % 02/26/25 0700 102/55 36.4 ?C (97.6 ?F) Temporal (!) 59 21 95 % 02/26/25 0600 96/50 -- -- 63 19 91 % 02/26/25 0500 106/51 -- -- (!) 56 23 91 % 02/26/25 0400 106/51 36.6 ?C (97.9 ?F) Temporal (!) 55 22 90 % 02/26/25 0300 105/54 -- -- 61 18 90 % 02/26/25 0200 112/62 -- -- 65 17 94 % 02/26/25 0100 113/50 -- -- (!) 58 19 90 % 02/26/25 0000 104/57 36.7 ?C (98.1 ?F) Temporal (!) 51 13 94 % 02/25/25 2300 107/59 -- -- 63 15 93 % 02/25/25 2200 100/56 -- -- (!) 58 19 95 % 02/25/25 2100 116/56 -- -- (!) 59 23 96 % 02/25/25 2000 128/60 -- -- (!) 58 21 96 % 02/25/25 1900 131/57 36.9 ?C (98.4 ?F) Temporal (!) 58 21 96 % 02/25/25 1800 97/60 -- -- 62 23 95 % Pleasant, comfortable, not in acute distress. Awake, alert, oriented times 3. Moves all extremities. SKIN: No rash or lumps. HEENT: Normocephalic, face symmetrical. NECK: Supple, no JVD, no carotid bruit, no thyromegaly. LUNGS: Clear to auscultation bilaterally. CARDIAC: PMI present, RRR, S1 and S2, no S3 or S4, no additional heart sounds or murmurs. ABDOMEN: Soft, nontender, bowel sounds present. EXTREMITIES: No edema. PULSES: Peripheral pulses present. MEDICATIONS: Current Facility-Administered Medications Medication Dose Route Frequency NaCl 0.9% iv flush bag 20 mL INTRAVENOUS PRN acetaminophen 650 mg tab(s) (TYLENOL) 650 mg ORAL q 6 H PRN nitroglycerin sublingual 0.4 mg tab(s) (NITROQUICK) 0.4 mg SUBLINGUAL q 5 MIN PRN atropine 0.4 mg injection 0.4 mg INTRAVENOUS PRN(NO DISPENSE) benzocaine-menthol 1 lozenge (CEPACOL) 1 lozenge MUCOUS MEMBRANE (TOPICAL MOUTH AND THROAT) q 2 H PRN atorvastatin 40 mg tab(s) (LIPITOR) 40 mg ORAL AT BEDTIME tamsulosin 0.4 mg cap(s) (FLOMAX) 0.4 mg ORAL AT BEDTIME traZODone 25 mg tab(s) (DESYREL) 25 mg ORAL AT BEDTIME gabapentin 300 mg cap(s) (NEURONTIN) 300 mg ORAL TID melatonin 9 mg tab(s) 9 mg ORAL DAILY (8 PM) HYDROcodone 5 mg - acetaminophen 325 mg tablet (NORCO) 1-2 tablet ORAL BID PRN rivaroxaban 15 mg tab(s) (XARELTO) 15 mg ORAL DAILY wDINNER [START ON 02/27/2025] clopidogrel 75 mg tab(s) (PLAVIX) 75 mg ORAL DAILY DATA: Diagnostic tests reviewed for today's visit: Most recent labs and imaging results. Past 72 Hour Labs: Recent Labs 02/26/25 0259 02/25/25205702/25/25 1429 WBC 6.67 -- 6.19 RBC 3.03* -- 2.95* HB 10.2* < > 10.0* HCT 30.0* -- 28.8* MCV 99.0 -- 97.6 MCH 33.7 -- 33.9 MCHC 34.0 -- 34.7 RDWCV 14.9 -- 14.6 PLT 187 -- 170 MPV 9.7 -- 9.3 GLUC 88 -- 98 BUN 15 -- 12 CREAT 0.88 -- 0.82 NA 135* -- 138 K 3.5* -- 4.0 CHLOR 98 -- 104 CO2 25 -- 24 ALB -- -- 3.7* CA 8.4* -- 8.4* < > = values in this interval not displayed. Last Lab Drawn: TSH 1.950 08/13/2020 Triglyceride 71 08/14/2020 HDL Cholesterol 49 08/14/2020 LDL Cholesterol, Calculated 55 08/14/2020 Cholesterol, Total 118 08/14/2020 Assessment AND Plan Stable angina Present on Admission: Status not on file He is a 84-year-old male with history of hypertension, hyperlipidemia, paroxysmal A-fib, known SEWER DIGGER of mid LAD, chronically reduced LV function of 40%, known severe aortic stenosis, underwent SEWER DIGGER PCI of mid LAD yesterday. Telemetry reviewed. Vital signs are stable. Labs reviewed. Access site clean dry and intact. He will need Xarelto for anticoagulation. Will switch Brilinta to Plavix. His DAPT regimen would be Xarelto/Plavix. Okay to discharge from cardiac standpoint. Medication (more content not included)...[facility]10-01-2025 NoteHNO ID: [id number] Author: KODY DOVER MD Service: Cardiovascular Medicine Author Type: Resident Type: Plan of Care Filed: 02/26/2025 14:33 Note Text: Approached by nurse regarding low MAPs- lactate normal, patient mentating okay, warm extremities, no complaints. Manual blood pressure obtained- 98/60. CXR normal. Cath site without any signs or symptoms of infection. Continue to monitor and repeat lactate/manual blood pressure in 1 hour to determine if patient is safe for discharge. Kody Dover MD PGY3, [facility]25 NoteHNO ID: [id number] Author: MOO JOY RN Service: Care Management Author Type: Registered Nurse Type: Care Mgt Initial Assessment Filed: 02/26/2025 10:38 Note Text: CARE MANAGEMENT: ASSESSMENT AND DISCHARGE PLAN SERVICE DATE: February 26, 2025 SERVICE TIME: 1036 PCP: Jorge Hilton MD Primary Contact: Extended Emergency Contact Information Primary Emergency Contact: Roni Hanna Mobile Relation: Daughter Admission Status: Extended Recovery Insurance Provider: [facility] [employer] Discharge Planning requested by: Per Department Practice Potential Transition Plans Home Advance Directives Current Advance Directive: None Renewals Specialist Attempted to Assist with AD Completion: Yes Action: Education Provided Current Living Arrangements and Support Lives with: Alone Type of Residence: Private Residence (House) Does the patient have to climb stairs at home?: Yes, stairs outside the home Support: Children How do you manage to accomplish the following: Independent: Ambulation, Bathe/Shower, Dress, Meals/Meal Prep, Going to the bathroom, Medication Management, Transportation to appointments/community Current Services/Equipment Current Post-Acute Service(s): DME Current DME Type: Grab bars, Shower seat, Quad cane Discharge Planning Patient Goal(s): General wellness, Be able to go home, Independent living [place] Explained: [place] Given: No Reason Not Given: No placements necessary Are you interested in bedside delivery of your medications? No Discharge Planning Participant(s): Patient Patient/Family Comments: Caregiver Assessment: Caregiver is ready, willing and able to meet the patient's needs as recommended by the inter-professional team: Yes Name of Caregiver: Roni / Daughter Transport at Discharge: Transportation Arrangements: Car Needs Prior to Discharge: Needs Prior to Discharge: To Be Determined, Discharge Prescriptions Post-Acute Discharge Plan: Initial assessment completed with patient at bedside. Pt. Lives alone in a single level home with 2 steps to enter. At baseline ambulates with a quad cane. Pt. Is independent with personal care, drives. + PCP, + DME, + RX coverage, [facility] in [place]. Pt. Reports daughter will transport patient home at d/c. Anticipate d/c home with family assist. Will continue to follow. SIGNATURE: Moo Joy RN PATIENT NAME: Bryce Ann DATE: February 26, 2025 TIME: 10:36 [facility]09-30-2025 NoteHNO ID: [id number] Author: RORY WEATHERS, ? Service: Pharmacy Author Type: Rad Technologist Type: Plan of Care Filed: 02/25/2025 12:39 Note Text: Reason for test claim: Cardiology Brilinta (ticagrelor) Medication: Brilinta 90 mg tablets Qty: 60 tablets Day supply: 30 days Cost on Insurance: $46.44 Does patient have a deductible? No No - Patient has already exhausted their once per lifetime use of voucher, unable to use voucher again No - Patient has government/federal insurance and is ineligible to use copay card Total number of maddox checks: 1 If prior authorization is required, please send medication to designated pharmacy 24-48 hours in advance. Any questions, please reach out the medication access nurse. Thank you. (Prices may vary at different pharmacy locations, this is the cost at [facility] on February 25, 2025 ).[facility]09-17-2025 NoteHNO ID: [id number] Author: CATALINO TRIPP MD Service: ? Author Type: Physician Type: Progress Notes Filed: 02/12/2025 15:33 Note Text: CARDIOTHORACIC SURGERY CONSULT / HANDP SERVICE DATE: 02/12/2025 SERVICE TIME: 3:24 PM Subjective PRIMARY SERVICE: Cardiothoracic Surgery CHIEF COMPLAINT: Symptomatic severe aortic stenosis HPI: This is a 84 year old man referred for evaluation of symptomatic severe aortic stenosis with known coronary artery disease, ischemic cardiomyopathy, chronic systolic heart failure and for consideration for aortic valve replacement. He is experiencing fatigue, dyspnea, some orthopnea, and edema. 2D echo from 02/12/2025 shows: - The left ventricle is normal in size. There is no left ventricular hypertrophy. Left ventricular systolic function is normal. EF = 64 ? 5% (2D 4-ch.) Definity contrast used for endocardial border detection. Left ventricular diastolic function was not evaluated due to mitral stenosis. - The right ventricle is normal in size. Right ventricular systolic function is normal. - The left atrial cavity is moderately dilated. - The right atrial cavity is dilated. - The visualized aorta is borderline dilated with a maximal dimension of 4.0 cm. - There is moderate (2+) mitral valve regurgitation. Regurgitant orifice area (PISA) is 0.20 cm?. -Prior MV peak/mean gradients 7/2 mmHg. - Tricuspid aortic valve. There is severe aortic valve stenosis caused by calcified valve and restricted opening. AV area is 0.61 cm? (0.35 cm?/m?) by continuity, VTI. The peak gradient is 58 mmHg, the mean gradient is 34 mmHg and the dimensionless valve index is 0.22. -Prior AV peak/mean gradients 54/32 mmHg. -Possible thrombus seen in LV apex, measuring .8cm x .3cm (image# [id number]). Left heart catheterization performed on 02/10/2025 shows: Findings: Left main Calcified, no significant disease LADCTO mid vessel with bridging collaterals and right to left collaterals. LCx Mild diffuse disease, patent stent in OM1 RCA Mild diffuse disease TAVR scans performed 02/11/2025 showed: 1. Trileaflet aortic valve , with severe aortic stenosis. The aortic valve calcium score is calculated at Agatston units. 2. Aortic annular measurements are as follows: diameter: 2.9 x 2.3 cm, mean diameter 2.4 cm, circumference: 7.8 cm, cross-sectional area: 457 mm2 3. Dilated thoracic aorta (maximum diameter 4.3 cm at the level of the main pulmonary artery) , and Normal abdominal aorta. No acute aortic pathology. 4. The pelvic arteries, including the common femoral arteries are normal in course, caliber, and contour. The minimal luminal caliber throughout = 0.8 cm. 5. Coronary heights: a. Annulus-RCA distance: 1.7 cm b. Annulus-LM distance: 1.9 cm The patient has the following comorbidities: Chronic Congestive Heart Failure due to ischemic cardiomyopathy which is systolic and compensated. Weight loss Valvular disease Continue current outpatient treatment plan and current medications for these conditions, except where otherwise noted. HTN HLD Atrial fibrillation History reviewed. No pertinent past medical history. History reviewed. No pertinent surgical history. History reviewed. No pertinent family history. SOCIAL HISTORY[1] Prescriptions Prior to Admission[2] rivaroxaban (XARELTO) 15 mg tablet Take 15 mg by mouth daily with dinner. bacitracin 500 unit/gram ointment APPLY TO THE AFFECTED AREA(S) DAILY finasteride (PROSCAR) 5 mg tablet Take 5 mg by mouth once daily. acetaminophen (TYLENOL) 325 mg tablet Take 2 tablets by mouth every 4 hours as needed. tamsulosin (FLOMAX) 0.4 mg Take 1 capsule by mouth daily at bedtime. atorvastatin (LIPITOR) 40 mg tablet Take 1 tablet by mouth daily at bedtime. sulfaSALAzine EC (AZULFIDINE EN) 500 mg EC tablet Take 1 tablet by mouth three times daily. folic acid 1 mg tablet Take 1 tablet by mouth once daily. traZODone (DESYREL) 50 mg tablet Take 1 tablet by mouth daily at bedtime. amiodarone (PACERONE) 200 mg tablet Take 200 mg by mouth twice daily. aspirin (DRAGAN CHEWABLE ASPIRIN) 81 mg chewable tablet Take 81 mg by mouth once daily. mirtazapine (REMERON) 15 mg tablet Take 15 mg by mouth daily at bedtime. methotrexate 2.5 mg tablet Ketorolac Tromethamine (ACLUAR LS) 0.4 % drop ALLERGIES No Known Allergies REVIEW OF SYSTEMS: As above. Objective PHYSICAL EXAM: BP 120/70 (BP Site: Right Arm, BP Position: Sitting, BP Cuff Size: Small Adult) Pulse (!) 57 Ht 5' (1.524 m) Wt 139 lb (63 kg) SpO2 99% BMI 27.15 kg/m? Body surface area is 1.63 meters squared. On examination, he appears well, elderly, somewhat frail, and is breathing comfortably. Easy bruising. Multiple ecchymoses. Vitals signs are BP 120/70 (BP Site: Right Arm, BP Position: Sitting, BP Cuff Size: Small Adult) Pulse (!) 57 Ht 5' (1.524 m) Wt 139 lb (63 kg) SpO2 99% BMI 27.15 kg/m? . There is no JVD. No cervical or s (more content not included)...[facility]09-17-2025 Note* Addendum Note - Ximena Bryson - 02/12/2025 2:58 PM EDTAddended by: XIMENA BRYSON on: 02/12/2025 02:58 PM Modules accepted: Orders [facility]09-17-2025 Miscellaneous Notes* Addendum Note - Ximena Bryson - 02/12/2025 2:58 PM EDTAddended by: XIMENA BRYSON on: 02/12/2025 02:58 PM Modules accepted: Orders * Telephone Encounter - Meghana Flor APRN.CNP - 02/12/2025 12:45 PM EDT Please schedule for TAVR procedure on 02/27/[address] Monae Arrive to [facility] Hospital Entrance at 0915 on day of procedure Please schedule Pre Op Visit (PAT) visit with myself on 02/21/25 at 0930 Arrive at [address] Preop labwork must be completed on 02/26/25 Non-fasting, walk in appointment Can be done at any [facility] facility Please schedule patient for 1 week post op appt, 1 month post op echo, and follow up appt with myself Thanks~! Meghana Flor APRN.CNP documented in this [facility] Telephone encounter Note * Telephone Encounter - Meghana Flor APRN.CNP - 02/12/2025 12:45 PM EDT Please schedule for TAVR procedure on 02/27/[address] Monae Arrive to [facility] Hospital Entrance at 0915 on day of procedure Please schedule Pre Op Visit (PAT) visit with myself on 02/21/25 at 0930 Arrive at [address] Preop labwork must be completed on 02/26/25 Non-fasting, walk in appointment Can be done at any [facility] facility Please schedule patient for 1 week post op appt, 1 month post op echo, and follow up appt with myself Thanks~! Meghana Flor APRN.CNP [facility] Work Phone: [phone]) 882-448309-17-2025 Instructions* Patient Instructions* Meghana Flor APRN.CNP - 02/12/2025 11:09 AM EDT Images from the original note were not included. You came in today to see Dr. Monae and Dr. Tripp for evaluation of your aortic stenosis. Upon further review, we are recommending the following: You have a severely narrowed/thickened/stiff aortic valve valve called aortic stenosis You are experiencing symptoms related to your valve We recommend Transcatheter Aortic Valve Replacement (TAVR) Procedure You are scheduled for TAVR procedure on 02/27/25 at 1115 Arrive to [facility] Entrance at 0915 on day of procedure You are scheduled for a Pre Op Visit (PAT) visit with myself on 02/21/25 at 0930 Arrive at [address] Preop labwork must be completed on 02/26/25 Non-fasting, walk in appointment Can be done at any [facility] facility Thank you for coming to see us today. Please call with any further questions or concerns. Meghana Flor APRN.CUST[employer] PROTECTION OFFICER [phone] Ext [phone] Patient information: Aortic stenosis What is aortic stenosis? -- Aortic stenosis is a condition in which one of the valves in the heart,called the aortic valve, doesn't open fully. The heart valves keep blood flowing in only one direction. When the heart valves work normally, they open all the way to let blood flow through them. Blood flows from a chamber of the heart called the left ventricle, through the aortic valve, into alarge blood vessel called the aorta. The aorta carries blood to the rest of the body. In aortic stenosis, the aortic valve gets stuck and does not open fully. This makes the valve opening narrow. When this happens: ?Not as much blood can flow out of the heart to the rest of the body. ?The heart has to work much harder than usual to pump blood to the rest of the body. Over time, this can cause heart problems. Aortic stenosis usually happens in adults. But some people are born with aortic stenosis. What are the symptoms of aortic stenosis? -- Early on, most people have no symptoms. They usually find out they have aortic stenosis after their doctor or nurse hears a heart murmur on a routine exam. A heart murmur is an extra sound in the heartbeat that doctors or nurses hear when they listen to the heart with a stethoscope. When people do have symptoms, they can have: ?Shortness of breath ?Dizziness or fainting ?Chest pain These symptoms usually happen with physical activity. Let your provider know if you have any of these symptoms. Is there a test for aortic stenosis? -- Yes. To check for aortic stenosis and see how severe it is,your doctor might order an echocardiogram (or echo). This test uses sound waves to create a picture of your heart as it beats. It shows the size of the heart chambers, how well the heart is pumping, and how well the heart valves are working. If you have aortic stenosis, your doctor might repeat this test over time to see if your condition changes. To get more information about your heart, your provider might order a test called cardiac catheterization, or cardiac cath. For this, the provider puts a thin tube into a blood vessel in your leg or arm. Then he or she moves the tube up to your heart. When the tube is in your heart or blood vessels, he or she will take measurements. The provider might also put a dye that shows up on an X- ray into the tube. It can show if any of the arteries in your heart are narrowed or blocked. This part of the test is called coronary angiography. Your provider might order a test called an electrocardiogram (ECG or EKG). This test measures the electrical activity in your heart. Some people with aortic stenosis will also have a chest X-ray. A chest X-ray can show the size and shape of your heart. It can also show changes in your lungs from aortic stenosis or other diseases. How is aortic stenosis treated? -- Treatment depends on your symptoms and how severe your aortic stenosis is. If your aortic stenosis is mild or you have little or no symptoms, you might not need anytreatment. But your provider will follow you to see if your aortic stenosis gets worse or you startto have symptoms. If your aortic stenosis is severe or you have a lot of symptoms, you will likely need treatment. Treatment can include: ?Surgery to replace your aortic valve - During surgery, the doctor will remove your narrowed valve and replace it with a valve that opens normally. This new valve can be made from metal or from tissue from a pig, cow, or horse. In some cases, a new valve comes from another person. Your doctor will talk with you about the benefits and downsides of each option. ?A procedure to put in a new aortic valve without surgery - This is a type of procedure that doctors can do to treat people who can't have valve surgery. It can also be an option for people who are at high risk for problems if they have valve surgery. ?A procedure to open the aortic valve - For this procedure, a doctor inflates a balloon in the narrowed aortic valve to try to open it. This procedure is used in children and young adults, because itis helpful in these people. This procedure is usually not as helpful in older adults. ?Medicines - There are no medicines to treat aortic stenosis. But if you have other heart conditions besides aortic stenosis, your doctor might prescribe medicines to treat those conditions. He or she will also make sure your blood pressure and cholesterol level are under control. Can I play sports? -- If your aortic stenosis is mild or you have little or no symptoms, you can probably play sports. But if your aortic stenosis or symptoms are more serious, your doctor might recommend that you limit your physical activity. What if I want to get ? -- If you want to get , talk with your doctor or nurse. Depending on your aortic stenosis and symptoms, he or she might recommend treating your aortic stenosisbefore you get . All topics are updated as new evidence becomes available and our peer review process is complete. The content on the [employer] website is not intended nor recommended as a substitute for medical advice, diagnosis, or treatment. Always seek the advice of your own physician or other qualified healthcare professional regarding any medical questions or conditions.. 2016 [employer]. All rights reserved. Topic 33841 Version 5.0 documented in this encounterCleveland [id number] NoteHNO ID: [id number] Author: LAURA SHANKS LPN Service: ? Author Type: Licensed Nurse Type: Progress Notes Filed: 02/12/2025 15:33 Note Text: CARDIAC REHAB 5 METER WALK TEST SERVICE DATE: 02/12/2025 SERVICE TIME: 10:32am 13.85 sec 11.78 sec 11.71 sec ASSESSMENT: SIGNATURE: Laura Shanks LPN PATIENT NAME: Bryce Ann DATE: February 12, 2025 TIME: 11:03 AM PAGER/CONTACT #: [phone] Note HNO ID: [id number] Author: FELIBERTO ROSENTHAL MD Service: ? Author Type: Physician Type: Progress Notes Filed: 02/12/2025 12:19 Note Text: Chief Complaint: Patient presents with: Aortic Stenosis: Bryce is here for TAVR evaluation. Bryce Ann is a 84 year old male with a known POMH of HTN, HLD, coronary artery disease status post drug-eluting stent placement to 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 He states that over the past 8 months he has noticed progressive shortness of breath on exertion especially when climbing stairs. He states that this continues to get worse over time and he feels very tired after any sort of exertion. He denies any orthopnea, paroxysmal nocturnal dyspnea, syncope or presyncope and denies any palpitations but does admit to bilateral leg swelling which is a chronic issue for him. He denies any chest pain or pressure with exertion. .No past medical history on file. History reviewed. No pertinent surgical history. History reviewed. No pertinent family history. SOCIAL HISTORY[1] Current Outpatient Medications Medication Sig rivaroxaban (XARELTO) 15 mg tablet Take 15 mg by mouth daily with dinner. bacitracin 500 unit/gram ointment APPLY TO THE AFFECTED AREA(S) DAILY finasteride (PROSCAR) 5 mg tablet Take 5 mg by mouth once daily. acetaminophen (TYLENOL) 325 mg tablet Take 2 tablets by mouth every 4 hours as needed. tamsulosin (FLOMAX) 0.4 mg Take 1 capsule by mouth daily at bedtime. atorvastatin (LIPITOR) 40 mg tablet Take 1 tablet by mouth daily at bedtime. sulfaSALAzine EC (AZULFIDINE EN) 500 mg EC tablet Take 1 tablet by mouth three times daily. folic acid 1 mg tablet Take 1 tablet by mouth once daily. traZODone (DESYREL) 50 mg tablet Take 1 tablet by mouth daily at bedtime. amiodarone (PACERONE) 200 mg tablet Take 200 mg by mouth twice daily. aspirin (DRAGAN CHEWABLE ASPIRIN) 81 mg chewable tablet Take 81 mg by mouth once daily. mirtazapine (REMERON) 15 mg tablet Take 15 mg by mouth daily at bedtime. methotrexate 2.5 mg tablet Ketorolac Tromethamine (ACLUAR LS) 0.4 % drop iv contrast (will be provided with radiology test) CTA ABD/PEL - No IV access, insert saline lock prior to the sedation, infusion, injection for imaging exam. Discontinue saline lock post exam. If Pt. has a central line or IVAD, may access for administration according to line specific nursing protocol. Once exam is complete flush line and de-access according to line specific nursing protocol in the CT contrast administration guidelines link. metOLazone (ZAROXOLYN) 2.5 mg tablet Take 2.5 mg by mouth Once Weekly with Dialysis. (Patient not taking: Reported on 02/12/2025) hydrOXYchloroQUINE (PLAQUENIL) 200 mg tablet Take by mouth once daily. (Patient not taking: Reported on 02/12/2025) metoprolol succinate ER (TOPROL XL) 25 mg 24 hr tablet Take 0.5 tablets by mouth once daily. (Patient not taking: Reported on 02/12/2025) apixaban (ELIQUIS) 5 mg tab(s) Take 1 tablet by mouth twice daily. (Patient not taking: Reported on 02/12/2025) cyclobenzaprine (FLEXERIL) 5 mg tablet Take 1 tablet by mouth three times daily as needed for Muscle Spasm. (Patient not taking: Reported on 02/12/2025) topiramate (TOPAMAX) 25 mg tablet Take 25 mg by mouth twice daily. (Patient not taking: Reported on 02/12/2025) senna (SENNA) 8.6 mg tab Take 8.6 mg by mouth twice daily. (Patient not taking: Reported on 02/12/2025) No current facility-administered medications for this visit. ALLERGIES No Known Allergies Cardiac Testing Heart catheterization 02/10/2025: Findings: Left main Calcified, no significant disease LADCTO mid vessel with bridging collaterals and right to left collaterals. LCx Mild diffuse disease, patent stent in OM1 RCA Mild diffuse disease LVEDP: valve not crossed Impressions: Severe single vessel CAD involving a known SEWER DIGGER of the mid LAD Recommend: Continue evaluation for valve replacement. TAVR scans 02/10/2025: IMPRESSION: 1. Trileaflet aortic valve , with severe aortic stenosis. The aortic valve calcium score is calculated at Agatston units. 2. Aortic annular measurements are as follows: diameter: 2.9 x 2.3 cm, mean diameter 2.4 cm, circumference: 7.8 cm, cross-sectional area: 457 mm2 3. Dilated thoracic aorta (maximum diameter 4.3 cm at the level of the main pulmonary artery) , and Normal abdominal aorta. No acute aortic pathology. 4. The pelvic arteries, including the common femoral arteries are normal in course, caliber, and contour. The minimal luminal caliber throughout = 0.8 cm. 5. The cardiovascular structures lie in close r (more content not included)... [facility]09-17-2025 NoteHNO ID: [id number] Author: MEGHANA FLOR APRN.CUSTOM PROTECTION OFFICER Service: ? Author Type: Nurse Practitioner Type: Progress Notes Filed: 02/12/2025 12:19 Note Text: Procedure Type: Isolated AVR Perioperative Outcome Estimate % Operative Mortality 5.4% Morbidity AND Mortality 18.8% Stroke 1.19% Renal Failure 3.18% Reoperation 5.02% Prolonged Ventilation 10.5% Deep Sternal Wound Infection 0.075% Long Hospital Stay (>14 days) 10.2% Short Hospital Stay (<6 days)* 22.5% *higher values reflect a better outcome Clinical Summary Planned Surgery: Isolated AVR, Elective, First cardiovascular surgery Demographics: 84 year old, male, 61.7kg, 152.4cm, BMI: 26.6 kg/m? Lab Values: Creatinine: 0.83 mg/dL, Hematocrit: 35.4%, WBC Count: 5.4 10?/?L, Platelet Count: [id number] cells/?L Substance Abuse: Former smoker Risk Factors / Comorbidities: Hypertension, Family Hx of CAD Cardiac Status: Acute and chronic heart failure, NYHA Class II, Ejection Fraction = 40% Coronary Artery Disease: 3 vessels diseased, Angina equivalent, [place]: > 21 Days Valve Disease: Aortic Stenosis, Mild AR, Moderate MR, Mild TR Arrhythmia: Recent A-fib, Unknown Prev. Cardiac Interv: Previous PCI: Not at this facility > 6 hours Meghana Flor APRN.[facility]09-17-2025 History of Present illness Narrative* Feliberto Rosenthal MD - 02/12/2025 10:32 AM EDT Chief Complaint: Patient presents with: Aortic Stenosis: Bryce is here for TAVR evaluation. Bryce Ann is a 84 year old male with a known POMH of HTN, HLD, coronary artery disease status post drug-eluting stent placement to 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 He states that over the past 8 months he has noticed progressive shortness of breath on exertion especially when climbing stairs. He states that this continues to get worse over time and he feels very tired after any sort of exertion. He denies any orthopnea, paroxysmal nocturnal dyspnea, syncope or presyncope and denies any palpitations but does admit to bilateral leg swelling which is a chronic issue for him. He denies any chest pain or pressure with exertion. .No past medical history on file. History reviewed. No pertinent surgical history. History reviewed. No pertinent family history. SOCIAL HISTORY[1] Current Outpatient Medications Medication Sig rivaroxaban (XARELTO) 15 mg tablet Take 15 mg by mouth daily with dinner. bacitracin 500 unit/gram ointment APPLY TO THE AFFECTED AREA(S) DAILY finasteride (PROSCAR) 5 mg tablet Take 5 mg by mouth once daily. acetaminophen (TYLENOL) 325 mg tablet Take 2 tablets by mouth every 4 hours as needed. tamsulosin (FLOMAX) 0.4 mg Take 1 capsule by mouth daily at bedtime. atorvastatin (LIPITOR) 40 mg tablet Take 1 tablet by mouth daily at bedtime. sulfaSALAzine EC (AZULFIDINE EN) 500 mg EC tablet Take 1 tablet by mouth three times daily. folic acid 1 mg tablet Take 1 tablet by mouth once daily. traZODone (DESYREL) 50 mg tablet Take 1 tablet by mouth daily at bedtime. amiodarone (PACERONE) 200 mg tablet Take 200 mg by mouth twice daily. aspirin (DRAGAN CHEWABLE ASPIRIN) 81 mg chewable tablet Take 81 mg by mouth once daily. mirtazapine (REMERON) 15 mg tablet Take 15 mg by mouth daily at bedtime. methotrexate 2.5 mg tablet Ketorolac Tromethamine (ACLUAR LS) 0.4 % drop iv contrast (will be provided with radiology test) CTA ABD/PEL - No IV access, insert saline lock prior to the sedation, infusion, injection for imaging exam. Discontinue saline lock post exam. If Pt. has a central line or IVAD, may access for administration according to line specific nursing protocol. Once exam is complete flush line and de-access according to line specific nursing protocol in the CT contrast administration guidelines link. metOLazone (ZAROXOLYN) 2.5 mg tablet Take 2.5 mg by mouth Once Weekly with Dialysis. (Patient not taking: Reported on 02/12/2025) hydrOXYchloroQUINE (PLAQUENIL) 200 mg tablet Take by mouth once daily. (Patient not taking: Reported on 02/12/2025) metoprolol succinate ER (TOPROL XL) 25 mg 24 hr tablet Take 0.5 tablets by mouth once daily. (Patient not taking: Reported on 02/12/2025) apixaban (ELIQUIS) 5 mg tab(s) Take 1 tablet by mouth twice daily. (Patient not taking: Reported on02/12/2025) cyclobenzaprine (FLEXERIL) 5 mg tablet Take 1 tablet by mouth three times daily as needed for Muscle Spasm. (Patient not taking: Reported on 02/12/2025) topiramate (TOPAMAX) 25 mg tablet Take 25 mg by mouth twice daily. (Patient not taking: Reported on02/12/2025) senna (SENNA) 8.6 mg tab Take 8.6 mg by mouth twice daily. (Patient not taking: Reported on 02/12/2025) No current facility-administered medications for this visit. ALLERGIES No Known Allergies Cardiac Testing Heart catheterization 02/10/2025: Findings: Left main Calcified, no significant disease LADCTO mid vessel with bridging collaterals and right to left collaterals. LCx Mild diffuse disease, patent stent in OM1 RCA Mild diffuse disease LVEDP: valve not crossed Impressions: Severe single vessel CAD involving a known SEWER DIGGER of the mid LAD Recommend: Continue evaluation for valve replacement. TAVR scans 02/10/2025: IMPRESSION: 1. Trileaflet aortic valve , with severe aortic stenosis. The aortic valve calcium score is calculated at Agatston units. 2. Aortic annular measurements are as follows: diameter: 2.9 x 2.3 cm, mean diameter 2.4 cm, circumference: 7.8 cm, cross-sectional area: 457 mm2 3. Dilated thoracic aorta (maximum diameter 4.3 cm at the level of the main pulmonary artery) , and Normal abdominal aorta. No acute aortic pathology. 4. The pelvic arteries, including the common femoral arteries are normal in course, caliber, and contour. The minimal luminal caliber throughout = 0.8 cm. 5. The cardiovascular structures lie in close relationship to the sternum (<1 cm), as scribed above. 6. There is mosaic groundglass pattern in the upper lobes most likely due to a degree of pulmonary edema although inflammatory processes are still in the differential diagnosis. The patient is status post cholecystectomy. The common bile duct is prominent at 10 mm. Clinical correlation to bilirubin and alkaline phosphatase values is suggested and if these are elevated an ERCP may be of use. The patient is status post TURP. There are post vertebroplasty or kyphoplasty changes at L1 and S1. No other nonvascular abnormalities are identified on the study. Aortic valve orifice area = 0.8 cm2 Aortic annulus diameter: 2.9 x 2.3 cm, mean diameter 2.4 cm Aortic annulus circumference: 7.8 cm Aortic annulus cross-sectional area: 457 mm2 Coronary Sinus measurements: a. Noncoronary sinus 3.8 cm b. Right coronary sinus 3.8 cm c. Left coronary sinus 3.9 cm Coronary heights: a. Annulus-RCA distance: 1.7 cm b. Annulus-LM distance: 1.9 cm Annulus angulations: JORDANIAN 7 caudal 26 The ascending thoracic aorta and aortic arch is normal in course, caliber, and contour. The arch vessel branching pattern is normal. The imaged arch branch vessels are patent proximally. The descending thoracic aorta is normal in course, caliber, and contour. The abdomina aorta is normal in course, caliber, and contour. There is a large amount of dystrophic wall calcification in the lumbar aorta at the origin of the celiac axis origin stenosis estimated to be in the 89%. There are 2 left renal arteries. The SMA and ANNELIESE are patent. The renal arteries are patent. The pelvic arteries are tortuous, but otherwise normal in caliber, and contour. The common femoral and superficial femoral arteries are normal in caliber, and contour. The minimal luminal caliber throughout = 0.8 cm. There is no acute aortic pathology, such as dissection, intramural hematoma, or contained rupture. Clipper Machine Operator dimensions of the thoracic aorta are as follows: 4.2 cm at the sinuses of Valsalva (measured [id number]) 3.4 cm at the sinotubular junction. 4.3 cm in the mid-ascending aorta 3.6 cm at the distal ascending aorta 3.3 cm at the mid-transverse arch 2.9 cm at the proximal descending thoracic aorta 2.5 cm at the diaphragmatic hiatus Clipper Machine Operator dimensions of the abdominal aorta are as follows: 2.6 cm at the supra-mesenteric segment 2.4 cm at the mesenteric segment 2.1 cm at the renal segment 1.6 cm at the infrarenal segment 1.2 cm at the aortic bifurcation Minimal pelvic vessel calibers are as follows: 1 cm at the right common iliac artery 1 cm at the left common iliac artery 0.8 cm at the right external iliac artery 0.8 cm at the left external iliac artery PROXIMITY OF THE CARDIOVASCULAR STRUCTURES TO THE STERNUM: The left brachio-cephalic vein lies 0.4 cm behind the upper-manubrium sternum. The aorta lies 2.2 cm behind the upper sternum. The RV myocardium lies 0.3 cm behind the lower sternum. ABDOMEN: The gallbladder is absent. The common bile duct measures 10 mm in size and can be followed all the way down to the ampulla without evidence of filling defect or encasing mass. The liver, rest of the biliary system, spleen, and pancreas appear normal. The adrenal glands appear normal. Both kidneys are normal in size, shape, and density. There is no abnormal mass or hydronephrosis. PELVIS: There is no significant retroperitoneal adenopathy. No free fluid or free air within the abdomen or pelvis. The bowel appears unremarkable on this non-GI contrast examination. The urinary bladder moderately distended but otherwise appears normal. The prostate demonstrates changes of TURP. Seminal vesicles are symmetric and normal.. BONES: There are changes of vertebroplasty of S1 and by pedicular kyphoplasty or vertebroplasty of L1. TTE 07/2020: Impression CONCLUSIONS: - Exam indication: Syncope - The left ventricle is normal in size. There is no left ventricular hypertrophy. Left ventricular systolic function is normal. EF = 62 5% (2D biplane) Definity contrast used for endocardial border detection. Grade I left ventricular diastolic dysfunction. No dynamic left ventricular outflow tract obstruction seen. - The right ventricle is normal in size. Right ventricular systolic function is normal. Tricuspid annular displacement is 2.2 cm. - The left atrial cavity is mildly dilated. ANGIE 35 ml/m . - The visualized aorta is dilated with a maximal dimension of 4.[address]/MR angiography if clinically indicated, to assess the aorta in its entirety - The patient has not had a prior CC echocardiographic exam for comparison. Review of Systems: See HPI Physical Examination:: BP 120/70 Pulse 57 Ht 5' 0[patient reports[ (1.52m) Wt 139 lb (63.1kg) SpO2 99% BMI 27.15 kg/(m^2). General Appearance: Well appearing, alert, in no acute distress, well-hydrated, well nourished.. Skin: Skin color, normal, no suspicious rashes or lesions. Head: Normocephalic, no masses, lesions, or abnormalities. Eyes: Anicteric sclera. Pupils are equally round . Extraocular movements are intact. Neck: Supple, no adenopathy; thyroid symmetric, normal size, no bruits. Lungs: Lungs clear to auscultation. No wheezing, rhonchi, rales.. Heart: regular rate and rhythm, no murmur, gallop or rub, normal, S1, S2, physiologic split, no lifts, heaves, or thrills, PMI not displaced Peripheral Pulses: Normal. ASSESSMENT/PLAN: 1. Nonrheumatic aortic valve stenosis - ICD9: 424.1, ICD10: I35.0 He appears to have paradoxical low-flow low gradient severe aortic valve stenosis and he appears kim clearly symptomatic from this. 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 I do believe he meets indication for valve replacement and I do believe a transcatheter approach would be the best option for him. Risks, benefits, alternatives of the procedure were explained to him in detail and he expressed understanding and is agreeable to proceed. Feliberto Monae MD Director Religious Education of Internal Medicine [facility] Section of Interventional Cardiology Production Sound Mixer of Structural Heart Disease [address], [place] [address] Facsimile: [phone] Email: [email or web address] [1] Social History Tobacco Use Smoking status: Former Smokeless tobacco: Former Quit date: 1969 Vaping Use Vaping status: Never Used * Meghana Flor APRN.CUSTOM PROTECTION OFFICER - 02/12/2025 10:32 AM EDT Procedure Type: Isolated AVR Perioperative Outcome Estimate % Operative Mortality 5.4% Morbidity & Mortality 18.8% Stroke 1.19% Renal Failure 3.18% Reoperation 5.02% Prolonged Ventilation 10.5% Deep Sternal Wound Infection 0.075% Long Hospital Stay (>14 days) 10.2% Short Hospital Stay (<6 days)* 22.5% *higher values reflect a better outcome Clinical Summary Planned Surgery: Isolated AVR, Elective, First cardiovascular surgery Demographics: 84 year old, male, 61.7kg, 152.4cm, BMI: 26.6 kg/m Lab Values: Creatinine: 0.83 mg/dL, Hematocrit: 35.4%, WBC Count: 5.4 10 /?L, Platelet Count: [id number] cells/?L Substance Abuse: Former smoker Risk Factors / Comorbidities: Hypertension, Family Hx of CAD Cardiac Status: Acute and chronic heart failure, NYHA Class II, Ejection Fraction = 40% Coronary Artery Disease: 3 vessels diseased, Angina equivalent, [place]: > 21 Days Valve Disease: Aortic Stenosis, Mild AR, Moderate MR, Mild TR Arrhythmia: Recent A-fib, Unknown Prev. Cardiac Interv: Previous PCI: Not at this facility > 6 hours Meghana Flor APRN.CNP * Laura Shanks LPN - 02/12/2025 10:27 AM EDT CARDIAC REHAB 5 METER WALK TEST SERVICE DATE: 02/12/2025 SERVICE TIME: 10:32am 13.85 sec 11.78 sec 11.71 sec ASSESSMENT: SIGNATURE: Laura Shanks LPN PATIENT NAME: Bryce Ann DATE: February 12, 2025 TIME: 10:41 AM PAGER/CONTACT #: [phone] [facility]25 NoteHNO ID: [id number] Author: LAURA SHANKS LPN Service: ? Author Type: Licensed Nurse Type: Progress Notes Filed: 02/12/2025 12:19 Note Text: CARDIAC REHAB 5 METER WALK TEST SERVICE DATE: 02/12/2025 SERVICE TIME: 10:32am 13.85 sec 11.78 sec 11.71 sec ASSESSMENT: SIGNATURE: Laura Shanks LPN PATIENT NAME: Bryce Ann DATE: February 12, 2025 TIME: 10:41 AM PAGER/CONTACT #: [phone] Telephone encounter Note* Telephone Encounter - Meghana Flor APRN.CNP - 02/10/2025 11:02 AM EDT c [facility]09-15-2025 Miscellaneous Notes* Telephone Encounter - Meghana Flor APRN.CNP - 02/10/2025 11:02 AM EDT c documented in this encounter[facility] History of Present illness Narrative* Mallory Aguilar Tech - 02/10/2025 9:00 AM EDT Radiology Service Progress Note DATE OF SERVICE: February 10, 2025 TIME: 8:55 AM PATIENT IDENTITY VERIFICATION COMPLETED USING TWO (2) STANDARD IDENTIFIERS: Name and Date of confirmed by patient verbally and Name and Date of confirmed by identification band. FALL SCREENING: Has the patient had 2 falls in the last year or 1 fall with injury or currently using an Ambulatory Assistive Device (Walker, Cane, Wheelchair, Crutches, etc.)? No PATIENT GENDER DATA: Assigned male at PATIENT RELEVANT IMPLANT DATA REVIEWED: Yes PATIENT PRESENTS WITH AN IMPLANTABLE OR ATTACHED PROTEIN CHEMIST: No ALLERGIES: Reviewed and unchanged CONTRAST ALLERGY: NO. EXAM: CT -CONTRAST INDUCED NEPHROPATHY RISK FACTORS: Not applicable CREATININE: Creatinine Date Value Ref Range Status 01/31/2025 0.83 0.73 - 1.22 mg/dL Final 08/16/2020 0.70 (L) 0.73 - 1.22 mg/dL Final 08/12/2020 0.63 (L) 0.73 - 1.22 mg/dL Final Estimated Glomerular Filtration Rate Date Value Ref Range Status 01/31/2025 87 >=60 mL/min/1.73m Final Comment: Estimated Glomerular Filtration Rate (eGFR) is calculated using the 2020 CKD-EPI creatinine equation. This equation utilizes serum creatinine, sex, and age as parameters. The creatinine assay has traceable calibration to isotope dilution- mass spectrometry. Refer to KDIGO guidelines for clinical interpretation. In patients with unstable renal function, e.g. those with acute kidney injury, the eGFRmay not accurately reflect actual GFR. eGFR- Date Value Ref Range Status 08/16/2020 >60 Final P.O.C.T. RESULTS: POC done: Yes, See Lab Tab February 10, 2025 TREATMENT: N/A and No Hydration needed. PERIPHERAL IV DATA: Inpatient - refer to LDA documentation RADIOLOGY DEPARTMENT: CT; Exam(s) Completed: CTA Abdomen Pelvis and CTA Chest. Anesthesia: No SIGNATURE: Romy Albarran PATIENT NAME: Bryce Ann DATE: February 10, 2025 TIME: 8:55 AM documented in this encounterMet[facility]-2025 NoteHNO ID: [id number] Author: MALLORY AGUILAR Tech Service: ? Author Type: Technologist Type: Progress Notes Filed: 02/10/2025 08:56 Note Text: Radiology Service Progress Note DATE OF SERVICE: February 10, 2025 TIME: 8:55 AM PATIENT IDENTITY VERIFICATION COMPLETED USING TWO (2) STANDARD IDENTIFIERS: Name and Date of confirmed by patient verbally and Name and Date of confirmed by identification band. FALL SCREENING: Has the patient had 2 falls in the last year or 1 fall with injury or currently using an Ambulatory Assistive Device (Walker, Cane, Wheelchair, Crutches, etc.)? No PATIENT GENDER DATA: Assigned male at PATIENT RELEVANT IMPLANT DATA REVIEWED: Yes PATIENT PRESENTS WITH AN IMPLANTABLE OR ATTACHED PROTEIN CHEMIST: No ALLERGIES: Reviewed and unchanged CONTRAST ALLERGY: NO. EXAM: CT -CONTRAST INDUCED NEPHROPATHY RISK FACTORS: Not applicable CREATININE: Creatinine Date Value Ref Range Status 01/31/2025 0.83 0.73 - 1.22 mg/dL Final 08/16/2020 0.70 (L) 0.73 - 1.22 mg/dL Final 08/12/2020 0.63 (L) 0.73 - 1.22 mg/dL Final Estimated Glomerular Filtration Rate Date Value Ref Range Status 01/31/2025 87 >=60 mL/min/1.73m? Final Comment: Estimated Glomerular Filtration Rate (eGFR) is calculated using the 2020 CKD-EPI creatinine equation. This equation utilizes serum creatinine, sex, and age as parameters. The creatinine assay has traceable calibration to isotope dilution-mass spectrometry. Refer to KDIGO guidelines for clinical interpretation. In patients with unstable renal function, e.g. those with acute kidney injury, the eGFR may not accurately reflect actual GFR. eGFR- Date Value Ref Range Status 08/16/2020 >60 Final P.O.C.T. RESULTS: POC done: Yes, See Lab Tab February 10, 2025 TREATMENT: N/A and No Hydration needed. PERIPHERAL IV DATA: Inpatient - refer to LDA documentation RADIOLOGY DEPARTMENT: CT; Exam(s) Completed: CTA Abdomen Pelvis and CTA Chest. Anesthesia: No SIGNATURE: Romy Albarran PATIENT NAME: Bryce Ann DATE: February 10, 2025 TIME: 8:55 [facility]09-15-2025 NoteHNO ID: [id number] Author: GABRIELLE MÉNDEZ RN Service: ? Author Type: Registered Nurse Type: Nursing Progress Note Filed: 02/10/2025 08:49 Note Text: [id number] patient admitted to POD, pre procedure teaching at bedside, review of medications with patient.[facility]09-[facility] Telephone encounter Note* Telephone Encounter - Meghana Flor APRN.CNP - 02/05/2025 1:13 PM EDT Hx, images, upcoming cath/scans and TAVR visit reviewed with Dr. Monae. Notable for apical LV thrombus on 12/24/24 ECHO. Currently on Xarelto. Dr. Monae requests repeat ECHO ok. Will arrange. Meghana Flor APRN.CNP [facility]09-10-2025 Miscellaneous Notes* Telephone Encounter - Meghana Flor APRN.CNP - 02/05/2025 1:13 PM EDT Hx, images, upcoming cath/scans and TAVR visit reviewed with Dr. Monae. Notable for apical LV thrombus on 12/24/24 ECHO. Currently on Xarelto. Dr. Monae requests repeat ECHO ok. Will arrange. Meghana Flor APRN.CNP documented in [facility] encounter[facility] Telephone encounter Note * Telephone Encounter - Lucero Martinez LPN - 02/03/2025 11:02 AM EDT Left message for Bryce Ann to call [facility] for test results. [facility] phone number provided. Lucero Martinez LPN [facility]09-08-2025 Miscellaneous Notes* Telephone Encounter - Lucero Martinez LPN - 02/03/2025 11:02 AM EDT Left message for Bryce Ann to call [facility] for test results. [facility] phone number provided. Lucero Martinez LPN * Telephone Encounter - Lucero Martinez LPN - 02/03/2025 11:01 AM EDT ----- Message from Meghana Flor APRN.CUSTOM PROTECTION OFFICER sent at 02/03/2025 10:57 AM EDT ----- Please lt pt know his blood reveals stable anemia, no signs of infection. Stable kidney function. Sodium a bit low at 131, and his BNP is elevated. This could all be from some stress on his heart, likey from the heart valve. He should continue on his current medication regimen including diuretics if he is on them. Continue with the plans we have for TAVR scans and cath on 02/10/25. ThanksLeslie ----- Message ----- From: Lab, Background User Sent: 02/01/2025 12:31 AM EDT To: Meghana Flor APRN.CUSTOM PROTECTION OFFICER documented in this encounter[facility]-2025 Telephone encounter Note * Telephone Encounter - Lucero Martinez LPN - 02/03/2025 11:01 AM EDT ----- Message from Meghana Flor APRN.CUSTOM PROTECTION OFFICER sent at 02/03/2025 10:57 AM EDT ----- Please lt pt know his blood reveals stable anemia, no signs of infection. Stable kidney function. Sodium a bit low at 131, and his BNP is elevated. This could all be from some stress on his heart, likey from the heart valve. He should continue on his current medication regimen including diuretics if he is on them. Continue with the plans we have for TAVR scans and cath on 02/10/25. Thanks, Leslie ----- Message ----- From: Lab, Background User Sent: 02/01/2025 12:31 AM EDT To: Meghana Flor APRN.CUSTOM PROTECTION OFFICER [facility]08-13-[facility] Radiology Diagnostic study [facility]08-13-2025 Radiology Diagnostic study [facility] 01-08-2025 Radiology Diagnostic study [facility]08-13-2025 Radiology Diagnostic study [facility]08-13-2025 Radiology Diagnostic study [facility]08-13-2025 Discharge summary Author Tran Stewart [facility] Note Date/Time January 08, 2025 6: 41pm [facility] Medical Records Department [address] [place] [address] Emergency Department Summary 01/08/25 MR#: [id number] Acct: [id number] Name: BRYCE ANN Rep #:[id number] : 1940 84 From: Tran Stewart MD PCP: Dr. Jorge Hilton MD Status:REG E R Location: ED HPI HPI - Fall History of Present Illness Chief Complaint: Fall Narrative Narrative: Patient is a 84-year-old male presenting to emergency department for a fall. Patient has extensive past medical history as below. Patient states that he wasgetting his lunch out of the fridge and his feet got tangled up and he fell onhis right side. Denies hitting his head or any loss of consciousness. Denies any neck or back pain. He was unable to get up by himself so he called his daughter. He was able to walk afterwards. He is on Xarelto. She brought him here to be evaluated. He denied any chest pain, shortness of breath, palpitations, lightheadedness or dizziness before or after the fall. [place] a little jittery intermittently today but nothing out of the normal for him. States he is very clumsy and reports that he falls a lot. Patient endorses he has skin tear to his right arm and right hip pain. 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 Secondary adrenal insufficiency Vitamin D deficiency Chronic edema Wears glasses Former smoker History of stress test History of heart attack Anemia Coronary artery disease Atherosclerotic heart disease of [place] coronary artery without angina pectoris BPH (benign prostatic hyperplasia) GERD (gastroesophageal reflux disease) Lumbar spinal stenosis Atrial fibrillation PAT (paroxysmal atrial tachycardia) SVT (supraventricular tachycardia) Rheumatoid arthritis Home Medications ?Medication ?Instructions ?Recorded ?Last Taken ?Type tamsulosin 0.4 mg capsule 0.4 mg PO DAILY@1800 Retenti on 07/18/20 05/31/23 History finasteride 1 mg tablet 5 mg PO DAILY prostate 12/3005/31/23 History golimumab 12.5 mg/mL intravenous 12.5 mg IV .[id number] i njection 05/31/22 05/29/23 History solution (Simponi ARIA) gabapentin 300 mg capsule 300 mg PO TID PRN PRN NERVE PAIN 10/20/22 05/31/23 History trazodone 100 mg tablet 100 mg PO QHS Check with estuardo oviedo 11/14/22 05/31/23 History doctor acetaminophen 500 mg tablet 1,000 mg (2 x 500 mg) PO Q 8 #0 tabs 01/24/23 06/01/23 Rx denosumab 60 mg/mL subcutaneous 60 mg subcut [id number] #1 mL 03/10/23 04/11/23 Rx syringe (Prolia) methotrexate sodium 2.5 mg tablet 20 mg PO QWEEK 06/0105/28/23 History sulfasalazine 500 mg 0.5 g PO Q12H 06/01/2305/31 History tablet,delayed release ascorbic acid (vitamin C) 1,000 mg 1,000 mg PO QDAY Unknown History capsule furosemide 40 mg tablet 40 mg PO QAM #90 tabs Unknown Rx hydrocodone 7.5 mg-acetaminophen 1 tab PO BID pain Unknown History 325 mg tablet mecobalamin (vitamin B12) 2,500 2,500 mcg PO DAILY Unknown History mcg chewable tablet mirtazapine 15 mg tablet 7.5 mg PO QHS 10/23/24 Unkno wn History oxybutynin chloride 10 mg 10 mg PO QDAY 10/23/24 Unkno wn History tablet,extended release 24 hr rivaroxaban 15 mg tablet (Xarelto) 15 mg PO QDAY 90 da ys #90 tabs 10/23/24 Unknown Rx spironolactone 25 mg tablet 25 mg PO DAILY water pill #90 tabs 10/23/24 Unknown Rx turmeric root extract 500 mg 500 mg PO QDAY 10/23/24 U nknown History capsule atorvastatin 40 mg tablet (Lipitor) 40 mg PO QHS Katarina sterol #90 tabs 12/09/24 Unknown Rx polysaccharide iron complex 150 mg 150 mg PO QDAY 90 d ays #90 caps 12/13/24 Unkn own Rx iron capsule (Ferrex) amiodarone 200 mg tablet 200 mg PO DAILY heart rate # 90 tabs 12/17/24 Unknown Rx Allergy/AdvReac Type Severity Reaction Status Date / Time No Known Allergies Allergy Verified 01/08/25 15:46 Family History Father CVA (cerebral vascular accident) Brother CAD (coronary artery disease) CABG X 3 Mother CVA (cerebral vascular accident) Grandfather Cancer prostate Surgical History History of cardiac catheterization History of coronary artery stent placement Hx of colectomy Hx of transurethral resection of prostate Hx of laminectomy History of lumbar surgery History of coronary artery stent placement (08/06/20) H/O colonoscopy S/P left colectomy S/P appendectomy S/P hemorrhoidectomy S/P vasectomy S/P laparoscopic cholecystectomy H/O umbilical hernia repair S/P inguinal hernia repair S/P rotator cuff repair S/P cataract surgery Social History household members: none housing: house current occupational status: retired Smoking Status: Former smoker how long ago did patient quit smokin years ago alcohol intake: never substance use type: does not use diet: low salt caffeine: Yes Type: coffee Number of servings: 4 ROS ROS ED ROS Narrative see HPI EXAM Physical Exam Narrative Exam Narrative: Vital signs: Reviewed General: Alert and oriented. No acute distress. Chronically unwell appearing. HEENT: Head is normocephalic and atraumatic, sinuses nontender, pupils equal round and reactive. Nares are patent. Oropharynx and throat exams normal. Neck: Supple without lymphadenopathy nontender. No midline cervical spinal tenderness to palpation. No step-offs or deformities. Cardiovascular: Regular rate and rhythm, no murmurs. No rubs or gallops. Normal S1 and S2 Respiratory: Clear to auscultation bilaterally. No wheezes, rales, rhonchi Abdominal: Soft and nontender. Normal bowel sounds. No guarding or rebound. Nonsurgical abdomen Extremities: No midline thoracic or lumbar spinal tenderness to palpation. No step-offs or deformities. The right hip is mildly tender to palpation on the lateral portion. There is a skin tear to the right elbow and right dorsal portion of the hand. The extremity is nontender to palpation with normal range of motion at elbow and wrist. ROM at shoulder is limited which patient states is baseline. Lower extremities with pitting edema bilaterally with no erythema or warmth. Bilateral lower extremities and left upper extremity are atraumatic and nontender palpation with normal range of motion. Skin: Skin tears as stated above. Neurological: Cranial nerves II through XII are grossly intact. Normal strengthand sensation. Normal cerebellar function The rest of the physical exam is unremarkable Const Vital Signs: 01/08/25 15:46 01/08/25 18:02 Temperature 98.6 F Temperature Source Temporal Pulse Rate 59 L Respiratory Rate 18 Respiratory Effort Normal Non-Labored Blood Pressure 127/63 H Blood Pressure Mean 84 Pulse Ox 93 Oxygen Delivery Method Room Air MDM MDM MDM Narrative Medical decision making narrative: Patient is a 84-year-old male presenting to the emergency department for mechanical fall. Patient was seen and examined. Vitals are stable. Patient resting in bed comfortably in no acute distress. Patient states that he tripped over his feet causing him to fall. Denied any prodromal symptoms that caused him to fall. Able to ambulate. Given the patientis on Xarelto, CT brain and cervical spine were ordered. X-rays of the right elbow and forearm as well as the right hip were obtained. Tetanus is [id number] 2022. Wounds were irrigated by nursing staff. CT brain shows no acute intracranial abnormalities. CT cervical spine shows no acute osseous abnormalities. X-rays were reviewed by myself and I see no fracture or dislocations. Forearm, elbow and hip x-rays are negative for acute fracture or dislocation on radiology read. For the skin tears on his right elbow and right dorsal portion of his hand, Steri-Strips were applied and an abdominal pad dressing was applied over top of these to help with protection if he hits the area on anything. Patient and daughter were given wound care instructions. Instructed to follow-up with PCP in 1 to 2 days. Patient discharged from the Emergency Department. I do not feel that the patient's evaluation reveals any acute reason for admission at this time. I instructed them to either follow-up with their primary care physician or promptly return to the Emergency Departmentfor reevaluation should symptoms worsen or new symptoms develop. I explained what symptoms would indicate the need to return to the emergency department. Shared decision making was used. The patient voiced understanding of the treatment plan and is agreeable with it. Clinical impression: Mechanical fall Skin abrasion Right hip pain Right arm pain History & Record Review Discussion w/independent historian: Patient and Family Radiography X-Ray: Right Hip, Read by ED Physician and No Fracture Diagnostic Testing: Clinical Impression(s) from Imaging Studies Brain CT 01/08/25 16:19 IMPRESSION: No acute intracranial abnormality. Reading Location: [facility] Cervical Spine CT 01/08/25 16:19 IMPRESSION: No acute osseous abnormality. Severe spondylosis. Spondylolisthesis. Reading Location: [facility] Elbow X-Ray 01/08/25 16:50 IMPRESSION: No acute fracture or dislocation. Reading Location: [id number] Forearm X-Ray 01/08/25 16:50 IMPRESSION: No acute fracture or dislocation. Reading Location: [facility] Hip/Pelvis X-Ray 01/08/25 16:50 IMPRESSION: No evidence of acute fracture or dislocation. Reading Location: [facility] Discharge Plan Triage Chief Complaint: Fall ED Provider: Tran Stewatr Dx/Rx/DC Orders Clinical Impression: Fall, Skin tear Instructions: Preventing Falls: Staying Active, ED Fall Prevention Prescriptions: No Action finasteride 1 mg tablet 5 mg PO DAILY Prolia 60 mg/mL syringe 60 mg subcut [id number] Qty: 1 1RF turmeric root extract 500 mg capsule 500 mg PO QDAY mecobalamin (vitamin B12) 2,500 mcg tablet,chewable 2,500 mcg PO DAILY ascorbic acid (vitamin C) 1,000 mg capsule 1,000 mg PO QDAY oxybutynin chloride 10 mg tablet extended release 24hr 10 mg PO QDAY hydrocodone-acetaminophen 7.5-325 mg tablet 1 tab PO BID Xarelto 15 mg tablet 15 mg PO QDAY 90 Days Qty: 90 3RF Patient Comments: WILL CHECK WITH [facility] ON WHEN STOP TAKING furosemide 40 mg tablet 40 mg PO QAM Qty: 90 3RF spironolactone 25 mg tablet 25 mg PO DAILY Qty: 90 3RF polysaccharide iron complex [Ferrex 150] 150 mg iron capsule 150 mg PO QDAY 90 Days Qty: 90 3RF tamsulosin 0.4 MG capsule 0.4 mg PO DAILY@1800 trazodone 100 mg tablet 100 mg PO QHS Simponi ARIA 12.5 mg/mL Solution 12.5 mg IV .[id number] Patient Comments: PT GOES TO GET INJECTION EVERY 8 WEEKS CAN NOT REMEMBER LAST SHOT NEXT DUE October gabapentin 300 mg capsule 300 mg PO TID PRN PRN (Reason: NERVE PAIN) Patient Comments: Take 1 (one) Capsule by mouth three times daily, as needed acetaminophen 500 mg Tablet 1,000 mg PO Q8 Qty: 0 0RF methotrexate sodium 2.5 mg tablet 20 mg PO QWEEK sulfasalazine 500 mg tablet,delayed release (DR/EC) 0.5 g PO Q12H mirtazapine 15 mg tablet 7.5 mg PO QHS atorvastatin [Lipitor] 40 mg tablet 40 mg PO QHS Qty: 90 3RF amiodarone 200 mg tablet 200 mg PO DAILY Qty: 90 3RF Primary Care Provider: Jorge Hilton Referrals: Jorge Hilton MD [Primary Care Provider] - 2 Days Activity Restrictions/Additional Instructions: Your evaluation in the Emergency Department did not reveal any acute reason for admission. However, I want to emphasize that you may be early in the course of adisease process or illness even if it is not present. For this reason you shouldfollow-up within 24 hours for reevaluation with either your primary care physician or if necessary back here in the Emergency Department. You should return to the Emergency Department immediately if your symptoms worsen or new symptoms develop. Print Language: Ukrainian Disposition Disposition: Home, Self Care What to do if you have Problems For any increased pain, shortness of breath, bleeding, nausea or vomiting, chestpain, or any unexpected problems, contact your Primary Care Provider. Call [facility] ([phone]) or report to the closest Emergency Room. Call 911 if necessary. 01/08/25 1841 <Electronically signed by Tran Stewart MD> Cosigner Signature (if applicable): CC: Dr. Jorge Hilton MD ~ Signed [facility] Work Phone: 1(965) 987-537007-22-2025 Hospital Discharge instructionsAmbulatory Orders* 12 Lead EKG [[facility]] Time Frame: 12/17/24, Location: None Selected [facility] Work Phone: 1(282) 654-564207-17-2025 Evaluation note* Diagnosis Onset Date Resolution Status Admit Date Anemia chronic December 12 10:50am Osteoporosis chronic February 3:43pm Aortic valve stenosis chronic Oct bucky 2024 3:03pm Dyslipidemia chronic February 3:03pm Encounter for monitoring amiodarone therapy chronic March 19, 2025 3:03pm History of coronary artery stent placement August 06, 2020 chronic March 19, 2 025 3:03pm Paroxysmal atrial fibrillation chronic March 19 3:03pm [facility] Work Phone: [phone]) 369-320507-17-2025 Progress note Author Catalino Short [facility] Note Date/Time December 12, 2024 12:1 7pm [facility] [place] [address] OFFICE VISIT Date of Service: 12/12/24 1145 MR#: [id number] Acct: [id number] Name: BRYCE ANN Rep #: [id number] : 1940 From: Catalino Short MD Age/Sex: 84/M Location: [facility] Status: Signed HPI Subjective Date of Service 12/12/24 Chief Complaint F/u for SHANA. History of Present Illness 84-year-old man was found to have gastric AVM associated with anemia. Upper GI endoscopy on 07/26/2021 showed for bleeding angiodysplastic lesions in the stomach. Treatment with APC was done. He was found to have persistent anemia and referred for further evaluation. He was found to have Iron deficiency anemia. Elected to do oral replacement about 4 weeks. 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 Received Injectaferin October 2022, iron profile corrected. He is on oral Iron and comes for follow up. [facility] Medical History (Updated 12/12/24 @ 12:[address] Catalino Short MD) Bruising Walker as ambulation aid Bladder disease Prostate disease Shortness of breath on exertion Leg cramps History of pain when walking History of CHF (congestive heart failure) History of atrial fibrillation History of echocardiogram Cardiology follow-up encounter Right rotator cuff tear arthropathy Right shoulder pain intermediate (current) use of anticoagulants Secondary adrenal insufficiency Vitamin D deficiency Chronic edema Wears glasses Former smoker History of stress test History of heart attack Anemia Coronary artery disease Atherosclerotic heart disease of [place] coronary artery without angina pectoris BPH (benign prostatic hyperplasia) GERD (gastroesophageal reflux disease) Lumbar spinal stenosis Atrial fibrillation PAT (paroxysmal atrial tachycardia) SVT (supraventricular tachycardia) Rheumatoid arthritis Surgical History History of cardiac catheterization History of coronary artery stent placement Hx of colectomy Hx of transurethral resection of prostate Hx of laminectomy History of lumbar surgery History of coronary artery stent placement (08/06/20) H/O colonoscopy S/P left colectomy S/P appendectomy S/P hemorrhoidectomy S/P vasectomy S/P laparoscopic cholecystectomy H/O umbilical hernia repair S/P inguinal hernia repair S/P rotator cuff repair S/P cataract surgery Family History Father CVA (cerebral vascular accident) Brother CAD (coronary artery disease) CABG X 3 Mother CVA (cerebral vascular accident) Grandfather Cancer prostate Social History household members: none housing: house current occupational status: retired Smoking Status: Former smoker how long ago did patient quit smokin years ago alcohol intake: never substance use type: does not use diet: low salt caffeine: Yes Type: coffee Number of servings: 4 Intake Vital Signs 10/25/24 11:34 11/25/24 15:24 12/12/24 11:45 Height 5 ft 1 in 5 ft 1 in 5 ft 1 in Weight: 61.32 kg BMI 25.5 BP 108/64 Blood Pressure Location Lt brachial Position Sitting Respiration 18 Pulse 59 L Pulse Source Monitor Temp 98.4 F Temperature Source Temporal Artery Pulse Oximetry (%) 95 Oxygen Delivery Method room air Intake Accompanied by: Self Is patient in pain?: Yes (arthritis lower back and right shoulder (surgery 12/25)) Pain scale (1-10): 9 Allergies No Known Allergies Allergy (Verified 12/12/24 11:49) Medications ?Medication ?Instructions ?Recorded ?Confirmed ?Type tamsulosin 0.4 mg capsule 0.4 mg PO DAILY@1800 Retenti on 07/18/20 12/12/24 History finasteride 1 mg tablet 5 mg PO DAILY prostate 12/3012/12/24 History golimumab 12.5 mg/mL intravenous 12.5 mg IV .[id number] i njection 05/31/22 12/12/24 History solution (Simponi ARIA) gabapentin 300 mg capsule 300 mg PO TID PRN PRN NERVE PAIN 10/20/22 12/12/24 History trazodone 100 mg tablet 100 mg PO QHS Check with estuardo oviedo 11/14/22 12/12/24 History doctor acetaminophen 500 mg tablet 1,000 mg (2 x 500 mg) PO Q 8 #0 tabs 01/24/23 12/12/24 Rx denosumab 60 mg/mL subcutaneous 60 mg subcut [id number] #1 mL 03/10/23 12/12/24 Rx syringe (Prolia) methotrexate sodium 2.5 mg tablet 20 mg PO QWEEK 06/0112/12/24 History sulfasalazine 500 mg 0.5 g PO Q12H 06/01/2312/12 History tablet,delayed release amiodarone 200 mg tablet 200 mg PO DAILY heart rate # 90 tabs 10/23/24 12/12/24 Rx ascorbic acid (vitamin C) 1,000 mg 1,000 mg PO QDAY 12/12/24 History capsule furosemide 40 mg tablet 40 mg PO QAM #90 tabs 12/12/24 Rx hydrocodone 7.5 mg-acetaminophen 1 tab PO BID pain 12/12/24 History 325 mg tablet mecobalamin (vitamin B12) 2,500 2,500 mcg PO DAILY 12/12/24 History mcg chewable tablet mirtazapine 15 mg tablet 7.5 mg PO QHS 10/23/2412/12 History oxybutynin chloride 10 mg 10 mg PO QDAY 10/23/2412/12 History tablet,extended release 24 hr rivaroxaban 15 mg tablet (Xarelto) 15 mg PO QDAY 90 da ys #90 tabs 10/23/24 12/12/24 Rx spironolactone 25 mg tablet 25 mg PO DAILY water pill #90 tabs 10/23/24 12/12/24 Rx turmeric root extract 500 mg 500 mg PO QDAY 10/23/24 0 12/12/24 History capsule atorvastatin 40 mg tablet (Lipitor) 40 mg PO QHS Katarina sterol #90 tabs 12/09/24 12/12/24 Rx polysaccharide iron complex 150 mg 150 mg PO ONCE 90 d ays #90 caps 12/12/24 12/12/24 Rx iron capsule (Ferrex) Have you fallen in the past year?: No Central Venous Access Central Venous Access: No Laboratory Tests 09/12/22 09/21/22 10/14/22 16:40 15:20 16:57 WBC 6.5 6.3 Hgb 8.4 L 7.5 L Hct 27.2 L 25.7 L Plt Count 356 265 Absolute Neuts (auto) Sodium Potassium Chloride Carbon Dioxide BUN Creatinine Glucose Calcium Iron 15 L TIBC Iron Saturation 5.0 L Erythropoietin 52.0 H Ferritin 75 Total Bilirubin AST ALT Alkaline Phosphatase Lactate Dehydrogenase C-React Prot Ext Range Total Protein Albumin Globulin Vitamin B12 844 Folate 68.20 H 10/19/22 11/28/22 11/28/22 11:09 16:47 16:48 WBC 5.4 6.6 Hgb 7.9 L 11.8 L Hct 26.9 L 38.5 L Plt Count 253 192 Absolute Neuts (auto) Sodium Potassium Chloride Carbon Dioxide BUN Creatinine Glucose Calcium Iron 18 L 93 TIBC 247 L Iron Saturation 5.1 L 37.7 Erythropoietin Ferritin 71 1800 H Total Bilirubin AST ALT Alkaline Phosphatase Lactate Dehydrogenase C-React Prot Ext Range Total Protein Albumin Globulin Vitamin B12 Folate 06/15/23 12/11/23 12/12/24 15:00 15:53 10:55 WBC 8.2 7.3 5.7 Hgb 12.9 L 12.9 L 11.8 L Hct 41.1 38.4 L 34.8 L Plt Count 194 189 168 Absolute Neuts (auto) 4.6 Sodium 135 L 132 L Potassium 4.2 4.5 Chloride 101 99 Carbon Dioxide 30.0 23.0 BUN 17 11 Creatinine 1.01 0.86 Glucose 131 H 114 H Calcium 8.7 8.6 Iron 60 L 88 64 L TIBC 274 263 236 L Iron Saturation 21.9 33.5 27.1 Erythropoietin Ferritin 1070 H 724 H 585 H Total Bilirubin 0.50 0.46 AST 25 26 ALT 45 20 Alkaline Phosphatase 62 68 Lactate Dehydrogenase 231 225 C-React Prot Ext Range < 2.90 Total Protein 6.8 6.4 Albumin 3.8 4.0 Globulin 3.0 2.4 Vitamin B12 Folate Exam Physical Exam Narrative Elderly man Const alert, oriented x3 and no apparent distress HEENT normocephalic, external ears normal and external nose normal Eyes conjunctivae normal and no scleral icterus Neck supple Lymph Lymphatic: no lymphadenopathy noted Resp normal respiratory effort and clear to auscultation bilaterally Cardio regular rate, regular rhythm, S1 normal heart sound and S2 normal heart sound Extremity no clubbing, cyanosis or edema Coding Level of Care Code Off vis,est,level 3 Exam Problem Focused Diagnoses Iron deficiency anemia due to chronic blood loss D50.0 Anemia type: iron deficiency Iron deficiency anemia type: chronic blood loss Assessment and Plan Assessment and Plan (1) Anemia: Status: Chronic Qualifiers: Anemia type: iron deficiency Iron deficiency anemia type: chronic bloodloss Qualified Code(s): D50.0 - Iron deficiency anemia secondary to blood loss (chronic) Comment: S/P IV replacement with Injectafer. Iron profile is stable, Iron level is 64 today, Ferritin is 585, HGB is 11.8 today. Plan: To continue oral iron supplements, can take twice a week.. Orders: Orders CBC W/Diff, Automated Today D50.0 - Iron deficiency anemia secondary to blood loss (chronic), D50.9 - Iron deficiency anemia, unspecified Comprehensive Metabolic Profil Today D50.0 - Iron deficiency anemia secondary to blood loss (chronic) Iron+Iron Binding Capacity Today D50.0 - Iron deficiency anemia secondary to blood loss (chronic) Ferritin Today D50.0 - Iron deficiency anemia secondary to blood loss (chronic), D50.9 - Iron deficiency anemia, unspecified LDH Today D50.0 - Iron deficiency anemia secondary to blood loss (chronic) Medications: New polysaccharide iron complex (Ferrex) 150 mg PO ONCE 90 days 90 caps 3RF Plan Details Follow Up: 6 Months Clinical Quality Measures Falls Risk Screening/Assistive Devices Have you fallen in the past year?: No 12/12/24 1217 <Electronically signed by Catalino Perry> Date _ Catalino Short MD Cosigner Signature: Date (if applicable) CC: Dr. Jorge Hilton MD ~ [facility] Work Phone: 1(675) 547-880506-30-2025 Evaluation note* Diagnosis Onset Date Resolution Status Admit Date Right rotator cuff tear arthropathy acute November 25, 2024 3:21pm Anemia chronic December 12 10:50am Osteoporosis chronic February 3:43pm Aortic valve stenosis chronic Feber 2024 3:03pm Dyslipidemia chronic February 3:03pm Encounter for monitoring amiodarone therapy chronic March 19, 2025 3:03pm History of coronary artery stent placement August 06, 2020 chronic March 19, 2 025 3:03pm Paroxysmal atrial fibrillation chronic March 19 3:03pm [facility] Work Phone: 1([phone]) 703-913906-30-2025 Progress [facility] [address] [place] [address] [address] [place] [address] OFFICE VISIT Date of Service: 11/25/24 MR#: [id number] Acct: [id number] Name: BRYCE ANN Rep #: [id number] : 1940 Provider: Dr. Brandon Robbins MD Age/Sex: 84/M Location: [facility] Status: Signed Intake Vital Signs 10/25/24 11:34 11/25/24 15:24 Height 5 ft 1 in 5 ft 1 in Weight: 140 lb BMI 26.4 Intake Visit Reasons: RIGHT SHOULDER Chief Complaint: Right shoulder pain Accompanied by: Self Is patient in pain?: Yes Pain scale (1-10): 10 Allergies No Known Allergies Allergy (Verified 11/25/24 15:26) Medications ?Medication ?Instructions ?Recorded ?Confirmed ?Type tamsulosin 0.4 mg capsule 0.4 mg PO DAILY@1800 Retenti on 07/18/20 11/25/24 History finasteride 1 mg tablet 5 mg PO DAILY prostate 12/3011/25/24 History golimumab 12.5 mg/mL intravenous 12.5 mg IV .[id number] i njection 05/31/22 11/25/24 History solution (Simponi ARIA) gabapentin 300 mg capsule 300 mg PO TID PRN PRN NERVE PAIN 10/20/22 11/25/24 History trazodone 100 mg tablet 100 mg PO QHS Check with estuardo oviedo 11/14/22 11/25/24 History doctor acetaminophen 500 mg tablet 1,000 mg (2 x 500 mg) PO Q 8 #0 tabs 01/24/23 11/25/24 Rx denosumab 60 mg/mL subcutaneous 60 mg subcut [id number] #1 mL 03/10/23 11/25/24 Rx syringe (Prolia) methotrexate sodium 2.5 mg tablet 20 mg PO QWEEK 06/0111/25/24 History sulfasalazine 500 mg 0.5 g PO Q12H 06/01/2311/25 History tablet,delayed release amiodarone 200 mg tablet 200 mg PO DAILY heart rate # 90 tabs 10/23/24 11/25/24 Rx ascorbic acid (vitamin C) 1,000 mg 1,000 mg PO QDAY 11/25/24 History capsule atorvastatin 40 mg tablet (Lipitor) 40 mg PO QHS Katarina sterol #90 tabs 10/23/24 11/25/24 Rx furosemide 40 mg tablet 40 mg PO QAM #90 tabs 11/25/24 Rx hydrocodone 7.5 mg-acetaminophen 1 tab PO BID pain 11/25/24 History 325 mg tablet mecobalamin (vitamin B12) 2,500 mcg PO DAILY 10/23/24 11/25/24 History mcg chewable tablet mirtazapine 15 mg tablet 7.5 mg PO QHS 10/23/2411/25 History oxybutynin chloride 10 mg 10 mg PO QDAY 10/23/2411/25 History tablet,extended release 24 hr rivaroxaban 15 mg tablet (Xarelto) 15 mg PO QDAY 90 da ys #90 tabs 10/23/24 11/25/24 Rx spironolactone 25 mg tablet 25 mg PO DAILY water pill #90 tabs 10/23/24 11/25/24 Rx turmeric root extract 500 mg 500 mg PO QDAY 10/23/24 0 11/25/24 History capsule Have you fallen in the past year?: No PFSH Medical History Coronary artery disease Right rotator cuff tear arthropathy Right shoulder pain intermediate (current) use of anticoagulants Secondary adrenal insufficiency Vitamin D deficiency Chronic edema Wears glasses Former smoker History of stress test History of heart attack Anemia Atherosclerotic heart disease of [place] coronary artery without angina pectoris BPH (benign prostatic hyperplasia) GERD (gastroesophageal reflux disease) Lumbar spinal stenosis Atrial fibrillation PAT (paroxysmal atrial tachycardia) SVT (supraventricular tachycardia) Rheumatoid arthritis Surgical History History of cardiac catheterization History of coronary artery stent placement Hx of colectomy Hx of transurethral resection of prostate Hx of laminectomy History of lumbar surgery History of coronary artery stent placement (08/06/20) H/O colonoscopy S/P left colectomy S/P appendectomy S/P hemorrhoidectomy S/P vasectomy S/P laparoscopic cholecystectomy H/O umbilical hernia repair S/P inguinal hernia repair S/P rotator cuff repair S/P cataract surgery Family History Father CVA (cerebral vascular accident) Brother CAD (coronary artery disease) CABG X 3 Mother CVA (cerebral vascular accident) Grandfather Cancer prostate Social History household members: none housing: house current occupational status: retired Smoking Status: Former smoker how long ago did patient quit smokin years ago alcohol intake: never substance use type: does not use diet: low salt caffeine: Yes Type: coffee Number of servings: 4 HPI RIGHT SHOULDER Details: This documentation accurately reflects the service provided and the decisions made by me, Dr. Bettie MD 11/25/24 1015. Part of today?s visit was documented by [ ], acting as scribe. BRYCE NAN is a 84 year old M here today for follow-up right shoulder MRI and CT scan for surgicalplanning related to shoulder arthroplasty. Supplemental Info [facility] Imaging Services [address] [place], [place] [id number] Extremity Upper without Contra MR#: [id number] Acct: [id number] Name: BRYCE ANN Rep #: [id number] : 1940 M 83 From: Nicko Yoon MD PCP: Dr. Jorge Hilton MD Status: REG CLI Study: Extremity Upper without Contra Date of Exam: 10/24/24 Exam# [id number] Ordering Dr: Rui Robbins MD PROCEDURE: EXTREMITY UPPER WITHOUT CONTRA 10/24/2024 REAS[facility] FOR EXAM: [facility] PLANNING FOR REVERSE SHOULDER TECHNIQUE: Axial CT images of the right shoulder obtained without intravenous contrast. Coronal and Sagittal reconstruction series were provided. One or more dose reduction techniques were used (e.g., Automated exposure control, adjustment of the mA and/or kV according to patient size, use of iterative reconstruction technique RADIATION DOSE SUMMARY: CTDlvol: 22.12 mGy DLP: 585.81 mGycm COMPARISON: None FINDINGS: Bones: Evidence of prior rotator cuff surgery. Joints: Marked degree of joint space narrowing of the glenohumeral joint with degenerative spur formation of the humeral head. There cephalic migration of the humeral head with decreased space between the humeral head and acromion. This is suggestive of rotator cuff issues. Soft Tissues: Soft tissue swelling. CT/Extremity Upper without Contra IMPRESSION: Marked degree of joint space narrowing of the right shoulder with degenerative spur formation. Cephalic migration of the humerus with decreased distance between the humeral head in the acromion in keeping withrotator cuff pathology. Reading Location: [address] Imaging Services [address] [place], [place] [id number] Upper Ext Joint Only(Routine) MR#: [id number] Acct: [id number] Name: BRYCE ANN Rep #: [id number] : 1940 83 From: Tierney Randall MD PCP: Dr. Jorge Hilton MD Status: REG CLI Study: Upper Ext Joint Only(Routine) Date of Exam: 11/06/24 Exam# [id number] Ordering Dr: Rui Robbins MD PROCEDURE: UPPER EXT JOINT ONLY(ROUTINE) 11/06/2024 REASON FOR EXAM: PLANNING FOR RTSA TECHNIQUE: MRI of the right upper Extremity. Multiplanar and multisequence images were obtained without IV contrast administration. COMPARISON: COMPARISON : CT scan on 10/24/2024. FINDINGS: Heterogeneous signal intensity of the visualized bone marrow, probably osteopenia. Type III acromion. 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 Findings are demonstrated by joint space narrowing, osteophyte formation and degenerative periarticular bone marrow changes. Narrowing of the supraspinatus outlet and impingement on its myotendinous junction. Surgical changes of the supraspinatus tendon. Tendinosis with moderate partial thickness tear of the insertional fibers of thesupraspinatus tendon. Severe chronic atrophy of the supraspinatus muscle. Associated edema/effusion. Tendinosis with moderate partial thickness tear of the insertional fibers of theinfraspinatus tendon. Severe chronic atrophy of the infraspinatus muscle. Associated edema/effusion. Tendinosis with moderate partial thickness tear of the insertional fibers of thesubscapularis tendon. Severe chronic atrophy of the subscapularis muscle. Associated edema/effusion. Atrophy of the teres minor muscle and tendinosis of the insertional fibers of its tendon. Elevation of the humeral head with narrowing of the subacromial space. Degenerative fibrocystic changes at the humeral insertion of the rotator cuff tendons. Fluid signal and edema in the subdeltoid/subacromial bursa suggestive of bursitis and/or impingement. The remaining visualized osseous elements are intact with no evidence of fracture or dislocation. The remaining marrow signal is within normal limits. The visualized hyaline cartilage is diffusely degenerated. Severe degenerative joint disease of the glenohumeral joint. The glenoid labrum is diffusely truncated and macerated. There is moderate glenohumeral joint effusion. Medial subluxation of the biceps tendon. Moderate bicipital tendinosis. MRI/Upper Ext Joint Only(Routine) IMPRESSION: 1. Heterogeneous signal intensity of the visualized bone marrow, probably osteopenia. 2. Type III acromion. 3. 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 4. Findings are demonstrated by joint space narrowing, osteophyte formation and degenerative periarticular bone marrow changes. 5. Narrowing of the supraspinatus outlet and impingement on its myotendinous junction. 6. Surgical changes of the supraspinatus tendon. 7. Tendinosis with moderate partial thickness tear of the insertional fibers of the supraspinatus tendon. Severe chronic atrophy of the supraspinatus muscle. Associated edema/effusion. 8. Tendinosis with moderate partial thickness tear of the insertional fibers of the infraspinatus tendon. Severe chronic atrophy of the infraspinatus muscle. Associated edema/effusion. 9. Tendinosis with moderate partial thickness tear of the insertional fibers of the subscapularis tendon. Severe chronic atrophy of the subscapularis muscle. Associated edema/effusion. 10. Atrophy of the teres minor muscle and tendinosis of the insertional fibers of its tendon. 11. 12. Elevation of the humeral head with narrowing of the subacromial space. 13. Degenerative fibrocystic changes at the humeral insertion of the rotator cuff tendons. 14. Fluid signal and edema in the subdeltoid/subacromial bursa suggestive of bursitis and/or impingement. Reading Location: [place] [address] I independently reviewed the imaging. Concur with radiologist report. Coding Level of Care Code Off vis,est,level 4 Diagnoses Right rotator cuff tear arthropathy M75.101; M12.811 Assessment and Plan Assessment and Plan (1) Right rotator cuff tear arthropathy: Status: Acute Plan: BRYCE ANN is a 84 year old M here today for follow-up right shoulder MRI and CT scan for surgicalplanning related to shoulder arthroplasty. Explained the pros and cons risks and benefits of continued conservative care versus a right reverse total shoulder arthroplasty. Patient wished to proceed with surgery. Will get a preoperative clearance given his history of coronary artery disease. He understands further questions or concerns. Pros and cons risks and benefits were discussed with the patient including but not limited to infection, pain, stiffness, bleeding, damage to surrounding structures, neurovascular injury, recurrence or retear, failure or wear of hardware or fixation, instability, fracture, deep vein thrombosis and pulmonary embolism, anesthetic risks, , patient dissatisfaction, need for further surgery and other risks. Patient understood and wished to proceed with surgery,and signed the informed consent documentation. Clinical Quality Measures Falls Risk Screening/Assistive Devices Have you fallen in the past year?: No Ortho Exam General General: Yes no acute distress Neurologic: Yes alert and Yes oriented x3 Psychologic: Yes reasonable and appropriate Right Shoulder Skin/Wound: Yes CDI, No ecchymosis, No erythema and No swelling Testing: Positive Hawkin's, Neer's, empty can and belly press normal; Negative Speed's, TTP Biceps, TTP AC Joint, Drop Arm or scapular winging SHOULDER: normal motor and sens to ax nerve, and MRU and AIN/PIN. active FE 50, ER 0. strength fe 4+. deltoidfiring well. normal sensation. ++ crepitus. pain with ROM. 11/25/24 1542 n MD> Date _ Rui Robbins MD Cosigner Signature: Date (if applicable) CC: ~ [facility]06-30-2025 Progress note Author Rui Robbins [facility] Services Note Date/Time November 25, 2024 3:41 pm [facility] [address] [place] [address] OFFICE VISIT Date of Service: 11/25/24 MR#: [id number] Acct: [id number] Name: BRYCE ANN Rep #: [id number] : 1940 Provider: Dr. Brandon Robbins MD Age/Sex: 84/M Location: [facility] Status: Signed Intake Vital Signs 10/25/24 11:34 11/25/24 15:24 Height 5 ft 1 in 5 ft 1 in Weight: 140 lb BMI 26.4 Intake Visit Reasons: RIGHT SHOULDER Chief Complaint: Right shoulder pain Accompanied by: Self Is patient in pain?: Yes Pain scale (1-10): 10 Allergies No Known Allergies Allergy (Verified 11/25/24 15:26) Medications ?Medication ?Instructions ?Recorded ?Confirmed ?Type tamsulosin 0.4 mg capsule 0.4 mg PO DAILY@1800 Retenti on 07/18/20 11/25/24 History finasteride 1 mg tablet 5 mg PO DAILY prostate 12/3011/25/24 History golimumab 12.5 mg/mL intravenous 12.5 mg IV .[id number] i njection 05/31/22 11/25/24 History solution (Simponi ARIA) gabapentin 300 mg capsule 300 mg PO TID PRN PRN NERVE PAIN 10/20/22 11/25/24 History trazodone 100 mg tablet 100 mg PO QHS Check with estuardo preet 11/14/22 11/25/24 History doctor acetaminophen 500 mg tablet 1,000 mg (2 x 500 mg) PO Q 8 #0 tabs 01/24/23 11/25/24 Rx denosumab 60 mg/mL subcutaneous 60 mg subcut [id number] #1 mL 03/10/23 11/25/24 Rx syringe (Prolia) methotrexate sodium 2.5 mg tablet 20 mg PO QWEEK 06/0111/25/24 History sulfasalazine 500 mg 0.5 g PO Q12H 06/01/2311/25 History tablet,delayed release amiodarone 200 mg tablet 200 mg PO DAILY heart rate # 90 tabs 10/23/24 11/25/24 Rx ascorbic acid (vitamin C) 1,000 mg 1,000 mg PO QDAY 11/25/24 History capsule atorvastatin 40 mg tablet (Lipitor) 40 mg PO QHS Katarina sterol #90 tabs 10/23/24 11/25/24 Rx furosemide 40 mg tablet 40 mg PO QAM #90 tabs 11/25/24 Rx hydrocodone 7.5 mg-acetaminophen 1 tab PO BID pain 11/25/24 History 325 mg tablet mecobalamin (vitamin B12) 2,500 mcg PO DAILY 10/23/24 11/25/24 History mcg chewable tablet mirtazapine 15 mg tablet 7.5 mg PO QHS 10/23/2411/25 History oxybutynin chloride 10 mg 10 mg PO QDAY 10/23/2411/25 History tablet,extended release 24 hr rivaroxaban 15 mg tablet (Xarelto) 15 mg PO QDAY 90 da ys #90 tabs 10/23/24 11/25/24 Rx spironolactone 25 mg tablet 25 mg PO DAILY water pill #90 tabs 10/23/24 11/25/24 Rx turmeric root extract 500 mg 500 mg PO QDAY 10/23/24 0 11/25/24 History capsule Have you fallen in the past year?: No PFS Medical History Coronary artery disease Right rotator cuff tear arthropathy Right shoulder pain intermediate (current) use of anticoagulants Secondary adrenal insufficiency Vitamin D deficiency Chronic edema Wears glasses Former smoker History of stress test History of heart attack Anemia Atherosclerotic heart disease of [place] coronary artery without angina pectoris BPH (benign prostatic hyperplasia) GERD (gastroesophageal reflux disease) Lumbar spinal stenosis Atrial fibrillation PAT (paroxysmal atrial tachycardia) SVT (supraventricular tachycardia) Rheumatoid arthritis Surgical History History of cardiac catheterization History of coronary artery stent placement Hx of colectomy Hx of transurethral resection of prostate Hx of laminectomy History of lumbar surgery History of coronary artery stent placement (08/06/20) H/O colonoscopy S/P left colectomy S/P appendectomy S/P hemorrhoidectomy S/P vasectomy S/P laparoscopic cholecystectomy H/O umbilical hernia repair S/P inguinal hernia repair S/P rotator cuff repair S/P cataract surgery Family History Father CVA (cerebral vascular accident) Brother CAD (coronary artery disease) CABG X 3 Mother CVA (cerebral vascular accident) Grandfather Cancer prostate Social History household members: none housing: house current occupational status: retired Smoking Status: Former smoker how long ago did patient quit smokin years ago alcohol intake: never substance use type: does not use diet: low salt caffeine: Yes Type: coffee Number of servings: 4 HPI RIGHT SHOULDER Details: This documentation accurately reflects the service provided and the decisions made by me, Dr. Rui Robbins MD 11/25/24 1015. Part of today?s visit was documented by [ ], acting as scribe. BRYCE ANN is a 84 year old M here today for follow-up right shoulder MRI and CT scan for surgical planning related to shoulder arthroplasty. Supplemental Info [facility] Imaging Services [address] [place] [address] [id number] Extremity Upper without Contra MR#: [id number] Acct: [id number] Name: BRYCE ANN Rep #: [id number] : 1940 M 83 From: Nicko Yoon MD PCP: Dr. Jorge Hilton MD Status: REG CLI Study: Extremity Upper without Contra Date of Exam: 10/24/24 Exam# [id number] Ordering Dr: Rui Robbins MD PROCEDURE: EXTREMITY UPPER WITHOUT CONTRA 10/24/2024 REASON FOR EXAM: BLUEPRINT PLANNING FOR REVERSE SHOULDER TECHNIQUE: Axial CT images of the right shoulder obtained without intravenous contrast. Coronal and Sagittal reconstruction series were provided. One or more dose reduction techniques were used (e.g., Automated exposure control, adjustment of the mA and/or kV according to patient size, use of iterative reconstruction technique RADIATION DOSE SUMMARY: CTDlvol: 22.12 mGy DLP: 585.81 mGycm COMPARISON: None FINDINGS: Bones: Evidence of prior rotator cuff surgery. Joints: Marked degree of joint space narrowing of the glenohumeral joint with degenerative spur formation of the humeral head. There cephalic migration of the humeral head with decreased space between the humeral head and acromion. This is suggestive of rotator cuff issues. Soft Tissues: Soft tissue swelling. CT/Extremity Upper without Contra IMPRESSION: Marked degree of joint space narrowing of the right shoulder with degenerative spur formation. Cephalic migration of the humerus with decreased distance between the humeral head in the acromion in keeping withrotator cuff pathology. Reading Location: [facility] Imaging Services [address] [place], [place] [address] Upper Ext Joint Only(Routine) MR#: [id number] Acct: [id number] Name: BRYCE ANN Rep #: [id number] : 1940 M 83 From: Tierney Randall MD PCP: Dr. Jorge Hilton MD Status: REG CLI Study: Upper Ext Joint Only(Routine) Date of Exam: 11/06/24 Exam# [id number] Ordering Dr: Rui Robbins MD PROCEDURE: UPPER EXT JOINT ONLY(ROUTINE) 11/06/2024 REASON FOR EXAM: PLANNING FOR RTSA TECHNIQUE: MRI of the right upper Extremity. Multiplanar and multisequence images were obtained without IV contrast administration. COMPARISON: COMPARISON : CT scan on 10/24/2024. FINDINGS: Heterogeneous signal intensity of the visualized bone marrow, probably osteopenia. Type III acromion. 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 Findings are demonstrated by joint space narrowing, osteophyte formation and degenerative periarticular bone marrow changes. Narrowing of the supraspinatus outlet and impingement on its myotendinous junction. Surgical changes of the supraspinatus tendon. Tendinosis with moderate partial thickness tear of the insertional fibers of thesupraspinatus tendon. Severe chronic atrophy of the supraspinatus muscle. Associated edema/effusion. Tendinosis with moderate partial thickness tear of the insertional fibers of theinfraspinatus tendon. Severe chronic atrophy of the infraspinatus muscle. Associated edema/effusion. Tendinosis with moderate partial thickness tear of the insertional fibers of thesubscapularis tendon. Severe chronic atrophy of the subscapularis muscle. Associated edema/effusion. Atrophy of the teres minor muscle and tendinosis of the insertional fibers of its tendon. Elevation of the humeral head with narrowing of the subacromial space. Degenerative fibrocystic changes at the humeral insertion of the rotator cuff tendons. Fluid signal and edema in the subdeltoid/subacromial bursa suggestive of bursitis and/or impingement. The remaining visualized osseous elements are intact with no evidence of fracture or dislocation. The remaining marrow signal is within normal limits. The visualized hyaline cartilage is diffusely degenerated. Severe degenerative joint disease of the glenohumeral joint. The glenoid labrum is diffusely truncated and macerated. There is moderate glenohumeral joint effusion. Medial subluxation of the biceps tendon. Moderate bicipital tendinosis. MRI/Upper Ext Joint Only(Routine) IMPRESSION: 1. Heterogeneous signal intensity of the visualized bone marrow, probably osteopenia. 2. Type III acromion. 3. 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 4. Findings are demonstrated by joint space narrowing, osteophyte formation and degenerative periarticular bone marrow changes. 5. Narrowing of the supraspinatus outlet and impingement on its myotendinous junction. 6. Surgical changes of the supraspinatus tendon. 7. Tendinosis with moderate partial thickness tear of the insertional fibers of the supraspinatus tendon. Severe chronic atrophy of the supraspinatus muscle. Associated edema/effusion. 8. Tendinosis with moderate partial thickness tear of the insertional fibers of the infraspinatus tendon. Severe chronic atrophy of the infraspinatus muscle. Associated edema/effusion. 9. Tendinosis with moderate partial thickness tear of the insertional fibers of the subscapularis tendon. Severe chronic atrophy of the subscapularis muscle. Associated edema/effusion. 10. Atrophy of the teres minor muscle and tendinosis of the insertional fibers of its tendon. 11. 12. Elevation of the humeral head with narrowing of the subacromial space. 13. Degenerative fibrocystic changes at the humeral insertion of the rotator cuff tendons. 14. Fluid signal and edema in the subdeltoid/subacromial bursa suggestive of bursitis and/or impingement. Reading Location: [place] [address] I independently reviewed the imaging. Concur with radiologist report. Coding Level of Care Code Off vis,est,level 4 Diagnoses Right rotator cuff tear arthropathy M75.101; M12.811 Assessment and Plan Assessment and Plan (1) Right rotator cuff tear arthropathy: Status: Acute Plan: BRYCE ANN is a 84 year old M here today for follow-up right shoulder MRI and CT scan for surgical planning related to shoulder arthroplasty. Explained the pros and cons risks and benefits of continued conservative care versus a right reverse total shoulder arthroplasty. Patient wished to proceed with surgery. Will get a preoperative clearance given his history of coronary artery disease. He understands further questions or concerns. Pros and cons risks and benefits were discussed with the patient including but not limited to infection, pain, stiffness, bleeding, damage to surrounding structures, neurovascular injury, recurrence or retear, failure or wear of hardware or fixation, instability, fracture, deep vein thrombosis and pulmonary embolism, anesthetic risks, , patient dissatisfaction, need for further surgery and other risks. Patient understood and wished to proceed with surgery,and signed the informed consent documentation. Clinical Quality Measures Falls Risk Screening/Assistive Devices Have you fallen in the past year?: No Ortho Exam General General: Yes no acute distress Neurologic: Yes alert and Yes oriented x3 Psychologic: Yes reasonable and appropriate Right Shoulder Skin/Wound: Yes CDI, No ecchymosis, No erythema and No swelling Testing: Positive Hawkin's, Neer's, empty can and belly press normal; Negative Speed's, TTP Biceps, TTP AC Joint, Drop Arm or scapular winging SHOULDER: normal motor and sens to ax nerve, and MRU and AIN/PIN. active FE 50, ER 0. strength fe 4+. deltoid firing well. normal sensation. ++ crepitus. pain with ROM. 11/25/24 8389 <Electronically signed by Rui guerin MD> Date _ Rui Robbins MD Cosign Signature: Date (if applicable) CC: ~ [facility] Work Phone: 1(237) 902-815106-10-2025 Evaluation note* Diagnosis Onset Date Resolution Status Admit Date Bilateral leg edema acute November 05, 2024 1:04pm Lymphedema acute November 05 1:04pm Right rotator cuff tear arthropathy acute November 25, 2024 3:21pm Anemia chronic December 12 10:50am [facility] Work Phone: 1(693) 259-570105-30-2025 Radiology Diagnostic study note [facility] Imaging Services [address] [place], [place] [address] Extremity Upper without Contra MR#: [id number] Acct: [id number] Name: BRYCE ANN Rep #: [id number] : 1940 M 83 From: Dusty Yoon MD PCP: Dr. Jorge Hilton MD Status: REG C NARESH Study:Extremity Upper without Contra Date of Exam: 10/24/24 Exam# [id number] Ordering Dr: Rui Robbins MD PROCEDURE: EXTREMITY UPPER WITHOUT CONTRA 10/24/2024 REASON FOR EXAM: BLUEPRINT PLANNING FOR REVERSE SHOULDER TECHNIQUE: Axial CT images of the right shoulder obtained without intravenous contrast. Coronal and Sagittal reconstruction series were provided. One or more dose reduction techniques were used (e.g., Automated exposure control, adjustment of the mA and/or kV according to patient size, use of iterative reconstruction technique RADIATION DOSE SUMMARY: CTDlvol: 22.12 mGy DLP: 585.81 mGycm COMPARISON: None FINDINGS: Bones: Evidence of prior rotator cuff surgery. Joints: Marked degree of joint space narrowing of the glenohumeral joint with degenerative spur formation of the humeral head. There cephalic migration of the humeral head with decreased space between the humeral head and acromion. This is suggestive of rotator cuff issues. Soft Tissues: Soft tissue swelling. CT/Extremity Upper without Contra IMPRESSION: Marked degree of joint space narrowing of the right shoulder with degenerative spur formation. Cephalic migration of the humerus with decreased distance between the humeral head in the acromion in keeping withrotator cuff pathology. Reading Location: [place] [address] CC: Dr. Jorge Hilton MD; Dr. 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 [place] [address] OFFICE VISIT Date of Service: 10/23/24 MR#: [id number] Acct: [id number] Name: BRYCE ANN Rep #: [id number] : 1940 Provider: Dr. Jose Mirza MD Age/Sex: 83/M Location: [facility] Status: Signed HPI HPI History of Present Illness Details: This gentleman has history of coronary artery disease with drug-eluting stent tohis obtuse marginaland chronic total occlusion of his LAD. He was last seen inour office in 2022. He is only coming tothe office today to refill Xarelto. Denies any complaints today. No chest pains. No shortness of breath. Denies any palpitations. No orthopnea PND. He has chronic nonpitting lower extremity edema which remains unchanged. Denies any bleeding issues. Denies any frequent falls. 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 Required: No Accompanied by: Self Is patient in pain?: Yes (chronic; unchanged; RA) Allergies No Known Allergies Allergy (Verified 10/23/24 13:46) Medications ?Medication ?Instructions ?Recorded ?Confirmed ?Type tamsulosin 0.4 mg capsule 0.4 mg PO DAILY@1800 Retenti on 07/18/20 10/14/24 History finasteride 1 mg tablet 5 mg PO DAILY prostate 12/3010/14/24 History golimumab 12.5 mg/mL intravenous 12.5 mg IV .[id number] i njection 05/31/22 10/14/24 History solution (Simponi ARIA) gabapentin 300 mg capsule 300 mg PO TID PRN PRN NERVE PAIN 10/20/22 10/14/24 History trazodone 100 mg tablet 100 mg PO QHS Check with estuardo preet 11/14/22 10/14/24 History doctor acetaminophen 500 mg tablet 1,000 mg (2 x 500 mg) PO Q 8 #0 tabs 01/24/23 10/14/24 Rx denosumab 60 mg/mL subcutaneous 60 mg subcut [id number] #1 mL 03/10/23 10/14/24 Rx syringe (Prolia) methotrexate sodium 2.5 mg tablet 20 mg PO QWEEK 06/0110/14/24 History sulfasalazine 500 mg 0.5 g PO Q12H 06/01/2310/14 History tablet,delayed release tramadol 50 mg tablet 50 mg PO Q8H PRN pain 10/14/24 History atorvastatin 40 mg tablet (Lipitor) 40 mg PO QHS Katarina sterol #90 tabs 12/04/23 10/14/24 Rx hydrocodone-acetaminophen 5-325mg 1 tab PO TID 4 10/14/24 History 5mg-325mg amiodarone 200 mg tablet 200 mg PO DAILY heart rate # 90 tabs 12/22/23 10/14/24 Rx spironolactone 25 mg tablet 25 mg PO DAILY water pill #90 tabs 01/12/24 10/14/24 Rx rivaroxaban 15 mg tablet (Xarelto) 15 mg PO DINNER 90 days #90 tabs 09/25/24 10/14/24 Rx ascorbic acid (vitamin C) 1,000 mg 1,000 mg PO QDAY 10/23/24 History capsule furosemide 40 mg tablet 40 mg PO QAM 10/23/24 History hydrocodone 7.5 mg-acetaminophen 1 tab PO BID PRN 09/2710/23/24 History 325 mg tablet mecobalamin (vitamin B12) 2,500 mcg PO DAILY 10/23/24 10/23/24 History mcg chewable tablet mirtazapine 15 mg tablet 7.5 mg PO QHS 10/23/2410/23 History oxybutynin chloride 10 mg 10 mg PO QDAY 10/23/2410/23 History tablet,extended release 24 hr turmeric root extract 500 mg 500 mg PO QDAY 10/23/24 0 10/23/24 History capsule Ejection fraction %: 50 Have you fallen in the past year?: Yes (no major injuries; in February 2024) [facility] Medical History (Updated 10/23/24 @ 14:[address] Jem Mirza MD) Coronary artery disease Right rotator cuff tear arthropathy Right shoulder pain intermediate (current) use of anticoagulants Secondary adrenal insufficiency Vitamin D deficiency Chronic edema Wears glasses Former smoker History of stress test History of heart attack Anemia Atherosclerotic heart disease of [place] coronary artery without angina pectoris BPH (benign prostatic hyperplasia) GERD (gastroesophageal reflux disease) Lumbar spinal stenosis Atrial fibrillation PAT (paroxysmal atrial tachycardia) SVT (supraventricular tachycardia) Rheumatoid arthritis Surgical History History of cardiac catheterization History of coronary artery stent placement Hx of colectomy Hx of transurethral resection of prostate Hx of laminectomy History of lumbar surgery History of coronary artery stent placement (08/06/20) H/O colonoscopy S/P left colectomy S/P appendectomy S/P hemorrhoidectomy S/P vasectomy S/P laparoscopic cholecystectomy H/O umbilical hernia repair S/P inguinal hernia repair S/P rotator cuff repair S/P cataract surgery Family History Father CVA (cerebral vascular accident) Brother CAD (coronary artery disease) CABG X 3 Mother CVA (cerebral vascular accident) Grandfather Cancer prostate Social History household members: none housing: house current occupational status: retired Smoking Status: Former smoker how long ago did patient quit smokin years ago alcohol intake: never substance use type: does not use diet: low salt caffeine: Yes Type: coffee Number of servings: 4 ROS Const Const: Positive for fatigue and weakness; Negative for headache(s) or weight gain ENT ENT: Negative for headache(s), dizziness, Nosebleed/epistaxis or balance problems Cardio Chest Pain: No Palpitations: No Edema: Bilateral (severe BLE) Muscle aches with walking: None Resp Respiratory: Positive for SOB with activity; Negative for SOB at rest or SOB orthopneaundefinedSOB lying down GI GI: Negative nausea, vomiting or heartburn Musc Musc: Positive for joint pain (RA); Negative for muscle aches/ myalgia, muscle weakness or balance problems Neuro Neuro: Positive for weakness; Negative for dizziness, lightheadedness, near syncope, syncope or headache(s) Endo Endo: Positive for fatigue Cardiology Exam Const Appearance: comfortable and no acute distress Nutritional Appearance: well nourished Neck Neck: no JVD Carotids: Negative bruit Chest Auscultation: Bilateral: Clear to Auscultation Cardio Rate: regular rate Rhythm: regular rhythm Heart sounds: S1 normal and S2 normal 3/6 systolic murmur at apex and base Neuro General: patient alert, patient awake and patient oriented x3 Extremities Nonpitting bilateral lower extremity edema Supplemental Info Supplemental Information Echocardiogram 09/23/2022: Interpretation Summary The estimated ejection fraction is 50 %. Unable to assess diastolic dysfunction. [place] : Hypokinetic. The left atrium is mildly enlarged. Trivial mitral valve insufficiency. Moderate aortic stenosis. Small pericardial effusion. Echocardiogram 01/27/2022: Interpretation Summary Segmental dysfunction with preserved ejection fraction (see wall motion). The estimated ejection fraction is 50 %. Apical false tendon noted. The left atrium is mildly enlarged. There is mild mitral annular calcification. Extension of the mitral annular calcification onto the base of the posterior mitral valve leaflet. Mild focal mitral valve calcification of the anterior leaflet. The mitral valve chordae are thickened and/or calcified. The mitral papillary muscle appears thickened and/or calcified. Mild-Moderate (1-2+) mitral valve insufficiency. Mild tricuspid valve insufficiency. Mild aortic stenosis. Trivial aortic valve insufficiency. Mild (1+) pulmonic valve insufficiency. Trivial pericardial effusion. There are no echocardiographic indications of cardiac tamponade. Right ventricular systolic pressure estimated to be 35 mmHg. Stage 2 diastolic dysfunction. Cardiac Intervention 08/06/2020: CONCLUSIONS CAD as described. No significant . Successful PCI on OM2 with GAGE. Unsuccessful PCI of SEWER DIGGER of LAD. RECOMMENDATIONS ASA Indefinitley Plavix for at least 12 months Follow up with Dr. Shields If patient has signs or symptoms of angina despite medical therapy, he may need re attempt at PCI of SEWER DIGGER of LAD or referral for ARELLANO to LAD CORONARY ANGIOGRAPHY DOMINANCE: Right Dominant LEFT HEART ASSESSMENT Left Ventricular Ejection Fraction: Not assessed LEFT MAIN: Mild luminal irregularities LEFT ANTERIOR DESCENDING ARTERY: MID LAD: 100 % Stenosis CIRCUMFLEX ARTERY: Mild luminal irregularities OM 2: Mid - 90 % Stenosis RIGHT CORONARY ARTERY: Mild luminal irregularities RT PDA: Proximal - 30-40 % Stenosis VALVE FINDINGS: No Aortic Valve Stenosis PCI 08/06/2020: OM2: PCI/GAGE: Synergy: 2.5 x 8 and 2.5 x 12 Carotid Duplex Ultrasound 10/09/2020: Interpretation Summary Irregular calcific plaque of the proximal right internal carotid artery with less than 50% stenosis Less than 50% stenosis right external carotid artery Extensive heterogenous calcific plaque with shadowing at the proximal left internal carotid artery with less than 50% stenosis. Less than 50% stenosis left external carotid artery Patent and antegrade vertebral arteries bilaterally 20-day event monitor July?August 2020: Average heart rate 68 beats minute. Low heart rate 50 beats minute. High heart rate 120 beats minute. No atrial fibrillation. No VT. No pauses. Assessment and Plan Assessment and Plan (1) Paroxysmal atrial fibrillation: Status: Chronic Plan: Maintaining sinus rhythm on amiodarone. Continue. Rivaroxaban for anticoagulation. (2) Encounter for monitoring amiodarone therapy: Status: Chronic Plan: Check TSH, pulmonary function tests and liver tests. (3) Coronary artery disease: Status: Chronic Plan: Rivaroxaban. Statins. (4) History of coronary artery stent placement: Status: Chronic Comment: Successful PCI on OM2 with GAGE. Unsuccessful PCI of SEWER DIGGER of LAD per Dr. Scott 08/06/2020 Plan: Rivaroxaban. (5) Aortic valve stenosis: Status: Chronic Plan: Check echocardiogram. (6) Dyslipidemia: Status: Chronic Plan: Atorvastatin. Repeat lipid profile. (7) Rheumatoid arthritis: Status: Chronic Plan: As per rheumatology. Plan Counseled regarding compliance with regular medical follow-up. Plan Details Follow Up: 6 Months Coding Level of Care Code Off vis,est,level 4 Diagnoses Paroxysmal atrial fibrillation I48.0 Encounter for monitoring amiodarone therapy Z51.81; Z79.899 Coronary artery disease I25.10 History of coronary artery stent placement Z95.5 Aortic valve stenosis I35.0 Dyslipidemia E78.5 Rheumatoid arthritis M06.9 Coding Level of Care Code Off vis,est,level 4 Diagnoses Paroxysmal atrial fibrillation I48.0 Encounter for monitoring amiodarone therapy Z51.81; Z79.899 Coronary artery disease I25.10 History of coronary artery stent placement Z95.5 Aortic valve stenosis I35.0 Dyslipidemia E78.5 Rheumatoid arthritis M06.9 Clinical Quality Measures Falls Risk Screening/Assistive Devices Have you fallen in the past year?: Yes (no major injuries; in February 2024) Cardiac Ejection fraction %: 50 10/23/24 1417 > Date _ Jem Mirza MD Cosigner Signature: Date (if applicable) CC: Dr. Jorge Hilton MD ~ [facility]05-28-2025 Progress note Author Jem Mirza [facility] Note Date/Time October 23, 2024 2:17p m [facility] [address] [place], [place] [address] OFFICE VISIT Date of Service: 10/23/24 MR#: [id number] Acct: [id number] Name: BRYCE ANN Rep #: [id number] : 1940 Provider: Dr. Jose Mirza MD Age/Sex: 83/M Location: [facility] Status: Signed HPI HPI History of Present Illness Details: This gentleman has history of coronary artery disease with drug-eluting stent tohis obtuse marginal and chronic total occlusion of his LAD. He was last seen inour office in 2022. He is only coming to the office today to refill Xarelto. Denies any complaints today. No chest pains. No shortness of breath. Denies any palpitations. No orthopnea PND. He has chronic nonpitting lower extremity edema which remains unchanged. Denies any bleeding issues. Denies any frequent falls. 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 Required: No Accompanied by: Self Is patient in pain?: Yes (chronic; unchanged; RA) Allergies No Known Allergies Allergy (Verified 10/23/24 13:46) Medications ?Medication ?Instructions ?Recorded ?Confirmed ?Type tamsulosin 0.4 mg capsule 0.4 mg PO DAILY@1800 Retenti on 07/18/20 10/14/24 History finasteride 1 mg tablet 5 mg PO DAILY prostate 12/3010/14/24 History golimumab 12.5 mg/mL intravenous 12.5 mg IV .[id number] i njection 05/31/22 10/14/24 History solution (Simponi ARIA) gabapentin 300 mg capsule 300 mg PO TID PRN PRN NERVE PAIN 10/20/22 10/14/24 History trazodone 100 mg tablet 100 mg PO QHS Check with estuardo oviedo 11/14/22 10/14/24 History doctor acetaminophen 500 mg tablet 1,000 mg (2 x 500 mg) PO Q 8 #0 tabs 01/24/23 10/14/24 Rx denosumab 60 mg/mL subcutaneous 60 mg subcut [id number] #1 mL 03/10/23 10/14/24 Rx syringe (Prolia) methotrexate sodium 2.5 mg tablet 20 mg PO QWEEK 06/0110/14/24 History sulfasalazine 500 mg 0.5 g PO Q12H 06/01/2310/14 History tablet,delayed release tramadol 50 mg tablet 50 mg PO Q8H PRN pain 10/14/24 History atorvastatin 40 mg tablet (Lipitor) 40 mg PO QHS Katarina sterol #90 tabs 12/04/23 10/14/24 Rx hydrocodone-acetaminophen 5-325mg 1 tab PO TID 4 10/14/24 History 5mg-325mg amiodarone 200 mg tablet 200 mg PO DAILY heart rate # 90 tabs 12/22/23 10/14/24 Rx spironolactone 25 mg tablet 25 mg PO DAILY water pill #90 tabs 01/12/24 10/14/24 Rx rivaroxaban 15 mg tablet (Xarelto) 15 mg PO DINNER 90 days #90 tabs 09/25/24 10/14/24 Rx ascorbic acid (vitamin C) 1,000 mg 1,000 mg PO QDAY 10/23/24 History capsule furosemide 40 mg tablet 40 mg PO QAM 10/23/24 History hydrocodone 7.5 mg-acetaminophen 1 tab PO BID PRN 09/2710/23/24 History 325 mg tablet mecobalamin (vitamin B12) 2,500 mcg PO DAILY 10/23/24 10/23/24 History mcg chewable tablet mirtazapine 15 mg tablet 7.5 mg PO QHS 10/23/2410/23 History oxybutynin chloride 10 mg 10 mg PO QDAY 10/23/2410/23 History tablet,extended release 24 hr turmeric root extract 500 mg 500 mg PO QDAY 10/23/24 0 10/23/24 History capsule Ejection fraction %: 50 Have you fallen in the past year?: Yes (no major injuries; in February 2024) [facility] Medical History (Updated 10/23/24 @ 14:[address] 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 Secondary adrenal insufficiency Vitamin D deficiency Chronic edema Wears glasses Former smoker History of stress test History of heart attack Anemia Atherosclerotic heart disease of [place] coronary artery without angina pectoris BPH (benign prostatic hyperplasia) GERD (gastroesophageal reflux disease) Lumbar spinal stenosis Atrial fibrillation PAT (paroxysmal atrial tachycardia) SVT (supraventricular tachycardia) Rheumatoid arthritis Surgical History History of cardiac catheterization History of coronary artery stent placement Hx of colectomy Hx of transurethral resection of prostate Hx of laminectomy History of lumbar surgery History of coronary artery stent placement (08/06/20) H/O colonoscopy S/P left colectomy S/P appendectomy S/P hemorrhoidectomy S/P vasectomy S/P laparoscopic cholecystectomy H/O umbilical hernia repair S/P inguinal hernia repair S/P rotator cuff repair S/P cataract surgery Family History Father CVA (cerebral vascular accident) Brother CAD (coronary artery disease) CABG X 3 Mother CVA (cerebral vascular accident) Grandfather Cancer prostate Social History household members: none housing: house current occupational status: retired Smoking Status: Former smoker how long ago did patient quit smokin years ago alcohol intake: never substance use type: does not use diet: low salt caffeine: Yes Type: coffee Number of servings: 4 ROS Const Const: Positive for fatigue and weakness; Negative for headache(s) or weight gain ENT ENT: Negative for headache(s), dizziness, Nosebleed/epistaxis or balance problems Cardio Chest Pain: No Palpitations: No Edema: Bilateral (severe BLE) Muscle aches with walking: None Resp Respiratory: Positive for SOB with activity; Negative for SOB at rest or SOB orthopneaundefinedSOB lying down GI GI: Negative nausea, vomiting or heartburn Musc Musc: Positive for joint pain (RA); Negative for muscle aches/ myalgia, muscle weakness or balance problems Neuro Neuro: Positive for weakness; Negative for dizziness, lightheadedness, near syncope, syncope or headache(s) Endo Endo: Positive for fatigue Cardiology Exam Const Appearance: comfortable and no acute distress Nutritional Appearance: well nourished Neck Neck: no JVD Carotids: Negative bruit Chest Auscultation: Bilateral: Clear to Auscultation Cardio Rate: regular rate Rhythm: regular rhythm Heart sounds: S1 normal and S2 normal 3/6 systolic murmur at apex and base Neuro General: patient alert, patient awake and patient oriented x3 Extremities Nonpitting bilateral lower extremity edema Supplemental Info Supplemental Information Echocardiogram 09/23/2022: Interpretation Summary The estimated ejection fraction is 50 %. Unable to assess diastolic dysfunction. [place] : Hypokinetic. The left atrium is mildly enlarged. Trivial mitral valve insufficiency. Moderate aortic stenosis. Small pericardial effusion. Echocardiogram 01/27/2022: Interpretation Summary Segmental dysfunction with preserved ejection fraction (see wall motion). The estimated ejection fraction is 50 %. Apical false tendon noted. The left atrium is mildly enlarged. There is mild mitral annular calcification. Extension of the mitral annular calcification onto the base of the posterior mitral valve leaflet. Mild focal mitral valve calcification of the anterior leaflet. The mitral valve chordae are thickened and/or calcified. The mitral papillary muscle appears thickened and/or calcified. Mild-Moderate (1-2+) mitral valve insufficiency. Mild tricuspid valve insufficiency. Mild aortic stenosis. Trivial aortic valve insufficiency. Mild (1+) pulmonic valve insufficiency. Trivial pericardial effusion. There are no echocardiographic indications of cardiac tamponade. Right ventricular systolic pressure estimated to be 35 mmHg. Stage 2 diastolic dysfunction. Cardiac Intervention 08/06/2020: CONCLUSIONS CAD as described. No significant . Successful PCI on OM2 with GAGE. Unsuccessful PCI of SEWER DIGGER of LAD. RECOMMENDATIONS ASA Indefinitley Plavix for at least 12 months Follow up with Dr. Shields If patient has signs or symptoms of angina despite medical therapy, he may need re attempt at PCI of SEWER DIGGER of LAD or referral for ARELLANO to LAD CORONARY ANGIOGRAPHY DOMINANCE: Right Dominant LEFT HEART ASSESSMENT Left Ventricular Ejection Fraction: Not assessed LEFT MAIN: Mild luminal irregularities LEFT ANTERIOR DESCENDING ARTERY: MID LAD: 100 % Stenosis CIRCUMFLEX ARTERY: Mild luminal irregularities OM 2: Mid - 90 % Stenosis RIGHT CORONARY ARTERY: Mild luminal irregularities RT PDA: Proximal - 30-40 % Stenosis VALVE FINDINGS: No Aortic Valve Stenosis PCI 08/06/2020: OM2: PCI/GAGE: Synergy: 2.5 x 8 and 2.5 x 12 Carotid Duplex Ultrasound 10/09/2020: Interpretation Summary Irregular calcific plaque of the proximal right internal carotid artery with less than 50% stenosis Less than 50% stenosis right external carotid artery Extensive heterogenous calcific plaque with shadowing at the proximal left internal carotid artery with less than 50% stenosis. Less than 50% stenosis left external carotid artery Patent and antegrade vertebral arteries bilaterally 20-day event monitor July?August 2020: Average heart rate 68 beats minute. Low heart rate 50 beats minute. High heart rate 120 beats minute. No atrial fibrillation. No VT. No pauses. Assessment and Plan Assessment and Plan (1) Paroxysmal atrial fibrillation: Status: Chronic Plan: Maintaining sinus rhythm on amiodarone. Continue. Rivaroxaban for anticoagulation. (2) Encounter for monitoring amiodarone therapy: Status: Chronic Plan: Check TSH, pulmonary function tests and liver tests. (3) Coronary artery disease: Status: Chronic Plan: Rivaroxaban. Statins. (4) History of coronary artery stent placement: Status: Chronic Comment: Successful PCI on OM2 with GAGE. Unsuccessful PCI of SEWER DIGGER of LAD per Dr. Scott 08/06/2020 Plan: Rivaroxaban. (5) Aortic valve stenosis: Status: Chronic Plan: Check echocardiogram. (6) Dyslipidemia: Status: Chronic Plan: Atorvastatin. Repeat lipid profile. (7) Rheumatoid arthritis: Status: Chronic Plan: As per rheumatology. Plan Counseled regarding compliance with regular medical follow-up. Plan Details Follow Up: 6 Months Coding Level of Care Code Off vis,est,level 4 Diagnoses Paroxysmal atrial fibrillation I48.0 Encounter for monitoring amiodarone therapy Z51.81; Z79.899 Coronary artery disease I25.10 History of coronary artery stent placement Z95.5 Aortic valve stenosis I35.0 Dyslipidemia E78.5 Rheumatoid arthritis M06.9 Coding Level of Care Code Off vis,est,level 4 Diagnoses Paroxysmal atrial fibrillation I48.0 Encounter for monitoring amiodarone therapy Z51.81; Z79.899 Coronary artery disease I25.10 History of coronary artery stent placement Z95.5 Aortic valve stenosis I35.0 Dyslipidemia E78.5 Rheumatoid arthritis M06.9 Clinical Quality Measures Falls Risk Screening/Assistive Devices Have you fallen in the past year?: Yes (no major injuries; in February 2024) Cardiac Ejection fraction %: 50 10/23/24 1417 <Electronically signed by Jem Mirza MD> Date _ Jem Mirza MD Cosigner Signature: Date (if applicable) CC: Dr. Jorge Hilton MD ~ [facility] Work Phone: 1(642) 413-881705-01-2025 Evaluation note* Diagnosis Onset Date Resolution Status Admit Date Right rotator cuff tear arthropathy acute September 26, 2024 2: 29pm Right shoulder pain acute September 262024 2:29pm Aortic valve stenosis chronic October 23, 2024 1:29pm Coronary artery disease chronic M 2024 1:29pm Dyslipidemia chronic October 23 1:29pm Encounter for monitoring amiodarone therapy chronic October 23 1:29pm History of coronary artery stent placement August 06, 2020 chronic October 23, 2024 1:29pm Paroxysmal atrial fibrillation chronic October 23, 2024 1 :29pm Rheumatoid arthritis chronic October 23, 2024 1:29pm Bilateral leg edema acute November 05, 2024 1:04pm Lymphedema acute November 05 1:04pm Right rotator cuff tear arthropathy acute November 25, 2024 3:21pm Anemia chronic December 12 10:50am [facility] Work Phone: 1(662) 114-188004-17-2025 Evaluation note* Diagnosis Onset Date Resolution Status Admit Date Osteoporosis chronic September 12, 2024 3:34pm Right rotator cuff tear arthropathy acute September 26, 2024 2: 29pm Right shoulder pain acute September 262024 2:29pm [facility] Work Phone: 1(757) 813-322204-17-2025 Evaluation note* Diagnosis Onset Date Resolution Status Admit Date Osteoporosis chronic September 12, 2024 3:34pm Right rotator cuff tear arthropathy acute September 26, 2024 2: 29pm Right shoulder pain acute September 262024 2:29pm Aortic valve stenosis chronic October 23, 2024 1:29pm Coronary artery disease chronic M ay 2024 1:29pm Dyslipidemia chronic October 23 1:29pm Encounter for monitoring amiodarone therapy chronic October 23 1:29pm History of coronary artery stent placement August 06, 2020 chronic October 23, 2024 1:29pm Paroxysmal atrial fibrillation chronic October 23, 2024 1 :29pm Rheumatoid arthritis chronic October 23, 2024 1:29pm [facility] Work Phone: 1(657) 288-212804-17-2025 Evaluation note* Diagnosis Onset Date Resolution Status Admit Date Osteoporosis chronic September 12, 2024 3:34pm Right rotator cuff tear arthropathy acute September 26, 2024 2:29pm Right shoulder pain acute September 262024 2:29pm Aortic valve stenosis chronic October 23, 2024 1:29pm Coronary artery disease chronic M ay 2024 1:29pm Dyslipidemia chronic October 23 1:29pm Encounter for monitoring amiodarone therapy chronic October 23 1:29pm History of coronary artery stent placement August 06, 2020 chronic October 23, 2024 1:29pm Paroxysmal atrial fibrillation chronic October 23, 2024 1:29pm Rheumatoid arthritis chronic October 23, 2024 1:29pm Peripheral vascular disease noneacti ve November 05, 2024 1:04pm [facility] Work Phone: 1(848) 293-105504-17-2025 Evaluation note* Diagnosis Onset Date Resolution Status Admit Date Osteoporosis chronic September 12, 2024 3:34pm Right rotator cuff tear arthropathy acute September 26, 2024 2: 29pm Right shoulder pain acute September 262024 2:29pm Aortic valve stenosis chronic October 23, 2024 1:29pm Coronary artery disease chronic M ay 2024 1:29pm Dyslipidemia chronic October 23 1:29pm Encounter for monitoring amiodarone therapy chronic October 23 1:29pm History of coronary artery stent placement August 06, 2020 chronic October 23, 2024 1:29pm Paroxysmal atrial fibrillation chronic October 23, 2024 1 :29pm Rheumatoid arthritis chronic October 23, 2024 1:29pm Bilateral leg edema acute November 05, 2024 1:04pm Lymphedema acute November 05 1:04pm [facility] Work Phone: [phone] Evaluation note* Diagnosis Onset Date Resolution Status Admit Date Osteoporosis chronic September 12, 2024 3:34pm Right rotator cuff tear arthropathy acute September 26, 2024 2: 29pm Right shoulder pain acute September 262024 2:29pm Aortic valve stenosis chronic October 23, 2024 1:29pm Coronary artery disease chronic M ay 2024 1:29pm Dyslipidemia chronic October 23 1:29pm Encounter for monitoring amiodarone therapy chronic October 23 1:29pm History of coronary artery stent placement August 06, 2020 chronic October 23, 2024 1:29pm Paroxysmal atrial fibrillation chronic October 23, 2024 1 :29pm Rheumatoid arthritis chronic October 23, 2024 1:29pm Bilateral leg edema acute November 05, 2024 1:04pm Lymphedema acute November 05 1:04pm Right rotator cuff tear arthropathy acute November 25, 2024 3:21pm [facility] Work Phone: 1([phone]) 654-886004-17-2025 Evaluation note* Diagnosis Onset Date Resolution Status Admit Date Osteoporosis chronic September 12, 2024 3:34pm Right rotator cuff tear arthropathy acute September 26, 2024 2: 29pm Right shoulder pain acute September 262024 2:29pm Aortic valve stenosis chronic October 23, 2024 1:29pm Coronary artery disease chronic M ay 2024 1:29pm Dyslipidemia chronic October 23 1:29pm Encounter for monitoring amiodarone therapy chronic October 23 1:29pm History of coronary artery stent placement August 06, 2020 chronic October 23, 2024 1:29pm Paroxysmal atrial fibrillation chronic October 23, 2024 1 :29pm Rheumatoid arthritis chronic October 23, 2024 1:29pm Bilateral leg edema acute November 05, 2024 1:04pm Lymphedema acute November 05 1:04pm Right rotator cuff tear arthropathy acute November 25, 2024 3:21pm Anemia chronic December 12 10:50am [facility] Work Phone: 1([phone]) 896-437608-13-2024 History of Present illness Narrative* Ra Magallanes APRN.VERITO - 01/09/2024 3:29 PM EDT Nontoxic appearing male presents urgent care accompanied by colleague. Chief complaint dizziness. Duration of symptoms today. Associated symptoms dizziness visual issues with the dizziness and some shortness of breath. Patient denies any current dizziness. With presenting symptoms I recommended patient be seen in the ED. Will be accompanied to [facility] by a fellow colleague. Ra Magallanes APRN.CUSTOM PROTECTION OFFICER documented [facility] Progress note Author Melva Wheeler [facility] June 03, 2023 1:24pm Note Date/Time June 03, 2023 1: 24pm [facility] Medical Records Department [address] [place] [id number] Progress Note - Hospitalist 06/03/23 1320 MR#: [id number] Acct: [id number] Name: BRYCE ANN Rep #:[id number] : 1940 82 From: Melva Wheeler DO PCP: Dr. Gloria Hazel MD Status:ADM IN Location: [address] Reason for Visit Reason for Visit: This is a late entry note with date of service of 06/02/2023 Fall/weakness Subjective Subjective No issues overnight. Patient states overall he is feeling better. Weakness seems to be improved. No complaints at this time other than his IV is painful and asked if we could move it. I told him I would discuss this with nursing. Objective Data Objective Data Vital Signs: Vital Signs Temp Pulse Resp BP Pulse Ox O2 Del Method O2 Flow Rate 97.9 F 73 18 127/68 H 97 Room Air 1 06/03/23 10:10 06/03/23 10:10 06/03/23 10:10 06/03/23 10:10 06/03/23 11:00 06/03/23 10:10 06/02/23 10:07 Oxygen Flow Rate (L/min) 1 Oxygen Delivery Method Room Air Weight: 66.7 kg Body Mass Index (BMI) 27.7 Intake & Output: Intake and Output for Last 24 Hours 06/01/23 06/02/23 06/03/23 23:59 23:59 23:59 Intake Total 500 / 500 600 / 600 400 / 400 Output Total 750 / 950 200 / 200 Balance 500 / 500 -150 / -350 200 / 200 Lab / Micro Data 06/03/23 05:59 06/03/23 05:59 Labs: Laboratory Results - last 24 hr 06/03/23 05:59: WBC 5.4, RBC 3.81 L, Hgb 12.0 L, Hct 37.3 L, MCV 97.9 H, MCH 31.5, MCHC 32.2, RDW Std Deviation 58.8 H, RDW Coeff of Jaciel 16.3 H, Plt Count 165, MPV 9.7, Immature Gran % (Auto) 0.200, Neut % (Auto) 65.2, Lymph % (Auto) 22.1, [place] % (Auto) 12.3 H, Eos % (Auto) 0.0, Baso % (Auto) 0.2, Absolute Neuts (auto) 3.5, Absolute Lymphs (auto) 1.19, Nucleated RBC % 0, Sodium 143, Potassium 3.5, Chloride 109 H, Carbon Dioxide 28.0, Anion Gap 6, BUN 21 H, Creatinine 0.72, Estim Creat Clear Calc 43.58, Est GFR (MDRD) Af Amer 136, Est GFR (MDRD) Non-Af 112, BUN/Creatinine Ratio 29.4 H, Glucose 106, Calcium 8.2 L Micro: Microbiology 06/01/23 07:59 Urine, Clean Catch Urine Culture - Final Mixed Gram Positive Organisms 06/01/23 07:39 Mucosa - Nasopharyngeal SARS-CoV-2, Influenza & RSV (PCR) - Final SARS-CoV-2 (COVID 19 PCR) Rhythm Strip Rhythm Strip: A-fib Rate: 84 Ectopy: None Physical Exam Const alert, oriented x3, no apparent distress, average body habitus and well nourished; Negative for healthy appearing Constitutional Narrative: Elderly, white male, walking back with patient care nursing assistant from the bathroom, appears comfortable and nontoxic, currently wearing 1 L nasal cannula and sats are 98% HEENT normocephalic, head/scalp atraumatic and moist oral mucous membranes HEENT Narrative: No thrush, mouth Resp normal respiratory effort, no retractions, no use of accessory muscles and clearto auscultation bilaterally Resp Narrative: Diminished diffusely but clear Auscultation: Negative for rales, rhonchi or wheezes Cardio regular rate, regular rhythm, S1 normal heart sound, S2 normal heart sound, no rub, no gallops and no clicks; Negative for no murmurs Cardio Narrative: 3 out of 6 systolic murmur GI normal to inspection, nondistended, normoactive bowel sounds, soft to palpation and non-tender Extremity Extremity Narrative: Trace to 1+ bilateral lower extremity edema, no cyanosis or clubbing Neuro oriented x3, moves all extremities and no focal motor deficits Speech: speech normal Psych affect normal Psych Narrative: Very pleasant Assessment & Plan Assessment/Plan (1) Hypoxia: (2) Weakness: (3) COVID-19: PLAN: Plan Acute hypoxia secondary to COVID-19 infection -Has been weaned to 1 L nasal cannula and oxygen saturation is at 97% -Symptoms started on 05/31/2023--> will need strict isolation through 06/04/2023 andwear a mask in public environments through 06/10/2023 -Continued acute on day 2 of 10 -CRP was not markedly elevated and patient does not meet criteria for baricitinib -As needed albuterol -I-S -Acapella -Antitussives ordered -Supportive care Falls/debility/generalized weakness -PT/OT are following and they do not feel he needs any therapy at discharge -Patient does live home alone -Case management and social work consulted to assist with discharge planning History of lumbar spine compression fractures/rib fractures -Notable at L1 and L5 with recent kyphoplasty -Also endplate damage noted at L2 and L3 with uncertain chronicity -As needed Tylenol available Osteoporosis -Patient is on Prolia at baseline -Recheck vitamin D level -Follows with Dr. 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 Unsuccessful PCI of SEWER DIGGER of LAD 08/06/2020 -Continue statin -Continue aspirin 81 mg -Continue home amiodarone -Continue home Lasix -Continue home Aldactone -No signs currently of acute decompensated heart failure -Last echocardiogram done on 09/24/2022 shows an EF of 50% with hypokinetic apex and mild left atrial enlargement along with moderate aortic stenosis Insomnia -Continue home trazodone Rheumatoid arthritis -Patient takes as needed prednisone 10 mg daily as needed -Will be on Decadron while hospitalized and likely discharge -Will continue home Simponi at discharge Chronic peripheral edema -Continue home diuretics -Jeremiah wrap's ordered while hospitalized BPH with obstruction -Continue home finasteride -Continue home Flomax Insomnia -Continue home trazodone History of tobacco abuse -Encouraged ongoing cessation DVT prophylaxis -Continue home Xarelto CODE STATUS -DNR CCA with no intubation as verified on admission Charges/Coding Visit Charges Inpatient E&M: 47184 Subs Hosp L2 06/03/23 1324 <Electronically signed by Melva Wheeler DO> Cosigner Signature (if applicable): CC: ~ Signed [facility] Work Phone: 1(616) 838-204901-06-2024 Discharge summary Author Melva Wheeler [facility] June 03, 2023 1:20pm Note Date/Time June 03, 2023 1: 08pm [facility] Medical Records Department [address] [place] [id number] Discharge Summary 06/03/23 1307 MR#: [id number] Acct: [id number] Name: BRYCE ANN Rep #:[id number] : 1940 82 From: Melva Wheeler DO PCP: Dr. Gloria Hazel MD Status:ADM IN Location: [facility] [id number] Providers Date of Admission: 06/01/23 Date of Discharge: 06/03/23 Primary Care Physician: Dr. Gloria Hazel MD Reason For Visit: HYPOXIA 2/2 COVID/GENERALIZED WEAKNESS Diagnosis Discharge Diagnosis (1) Hypoxia: Status: Acute Code(s): R09.02 - Hypoxemia (2) Weakness: Status: Acute Code(s): R53.1 - Weakness (3) COVID-19: Status: Acute Code(s): U07.1 - COVID-19 Medications at Discharge Home Medications tamsulosin 0.4 mg capsule 0.4 mg PO DAILY@1800 Retention 07/18/20 finasteride 1 mg tablet 5 mg PO DAILY prostate 12/30/20 multivitamin (Daily Multi-Vitamin tablet) 1 tab PO DAILY Check with primary doctor 01/01/21 golimumab 12.5 mg/mL intravenous solution (Simponi ARIA) 12.5 mg IV .[id number] injection 05/31/22 atorvastatin 40 mg tablet (Lipitor) 40 mg PO QHS Cholesterol #90 tabs 10/07/22 gabapentin 300 mg capsule 300 mg PO TID PRN PRN NERVE PAIN 10/20/22 amiodarone 200 mg tablet 200 mg PO DAILY heart rate #90 tabs 10/28/22 spironolactone 25 mg tablet 25 mg PO DAILY water pill #30 tabs 11/14/22 trazodone 100 mg tablet 150 mg PO QHS Check with primary doctor 11/14/22 ergocalciferol (vitamin D2) 1,250 mcg (50,000 unit) capsule (Vitamin D2) 1,250 mcg PO Q7D supplememt #0 caps 01/06/23 acetaminophen 500 mg tablet 1,000 mg (2 x 500 mg) PO Q8 #0 tabs 01/24/23 baclofen 10 mg tablet 10 mg PO TID 30 days #90 tabs 01/24/23 furosemide 40 mg tablet 40 mg PO DAILY 30 days #30 tabs 01/24/23 polysaccharide iron complex 150 mg iron capsule (Ferrex) 150 mg PO DAILY 30 days#30 caps 01/24/23 rivaroxaban 15 mg tablet (Xarelto) 15 mg PO DINNER 30 days #30 tabs 01/24/23 denosumab 60 mg/mL subcutaneous syringe (Prolia) 60 mg subcut [id number] #1 mL 03/10/23 prednisone 1 mg tablet 1 mg PO DAILY #100 tabs 03/10/23 methotrexate sodium 2.5 mg tablet 20 mg PO QWEEK 06/01/23 sulfasalazine 500 mg tablet,delayed release 0.5 g PO Q12H 06/01/23 tramadol 50 mg tablet 50 mg PO Q8H PRN pain 06/01/23 dexamethasone 4 mg tablet 6 mg (1.5 x 4 mg) PO DAILY #7 tabs 06/03/23 Hospital Course Operations None Procedures EKG and - (Chest x-ray) Summary of Care Provided Minutes Spent on Discharge: 36 Hospital Course: BRYCE ANN, is a 82 M who presented to the emergency department at [facility] on 06/01/2023 with a chief complaint of generalized weakness and fall. The patient had reported that he was his normal self up until yesterday afternoon at which time he began having a sore throat and some nasal congestion. He then developed some generalized weakness, cough with intermittent production, myalgias, and mild headache. He has no known sick contacts. He fell around 430 this morning when he was getting up to use the restroom. He reported that his legs just gave out on him and landed on his buttocks. He denied injuries related to his fall but was too weak to get up. He laid on the ground for about 30 minutes and then was able to trigger his lifealert and was brought to the emergency department by the squad. He lives at home alone. Vital signs on presentation showed temperature of 98.9, heart rate was 83, blood pressure is 131/70, respiratory rate was 19 and oxygen saturation was initially 94% on room air however he dropped to 84% on room air and was placed on 2 L nasal cannula with an oxygen saturation improving to 97%. His CBCshows a chronic stable anemia with a hemoglobin of 12.8 and no leukocytosis however he does have a mild left shift with a 72.4% neutrophilia and a 14.7% monocytosis. His chemistry panel was overall unremarkable. His UA is unremarkable for signs of infection. His lipase was 12. His chest x-ray showedlow lung volumes with basilar atelectasis and scarring but no acute findings. Urine culture was sent in the emergency department and his RSV/COVID/flu PCR waspositive for COVID-19. Patient was admitted to the medical floor and required supplemental oxygen at 2 L. We placed him on Decadron and were able to wean hisoxygen to room air by the time of discharge. He did extremely well physical therapy and they indicated he needed no further assistance or therapy services at discharge. The patient was overall feeling better and was stable for discharge home on 11/16/2023. We did an ambulatory pulse ox and his oxygen saturation on room air at rest was 97 and during ambulation was 93% so he did not qualify for any supplemental oxygen. I did keep him on Decadron to completea 10-day course of Decadron and prescription was sent to local pharmacy. I haveadvised him to stay away from people and isolate himself until 06/04/2023 and thenafter that period of time for 5 days wear mask when in public spaces or with other people. He voiced understanding and was anxious to go home. He was discharged home in stable condition on 06/03/2023. Discharge diagnoses: Acute hypoxia COVID-19 infection Falls Generalized weakness Debility History of lumbar compression fractures History of rib fractures Osteoporosis History of GI bleed Chronic macrocytic anemia CAD PAF Hyperlipidemia Chronic diastolic heart failure HTN Moderate aortic stenosis Insomnia Rheumatoid arthritis Chronic peripheral edema BPH with obstruction Insomnia History of tobacco abuse Physical Exam Const alert, oriented x3, no apparent distress, average body habitus and well nourished; Negative for healthy appearing Constitutional Narrative: Elderly, white male, sitting up in bed, watching television eating breakfast, appears comfortable nontoxic, on room air General Appearance: cooperative, comfortable, well kempt and well developed Orientation / Consciousness: awake, oriented to person, oriented to place and oriented to time Exam Limitations: no limitations Nutritional Appearance: overweight HEENT normocephalic, head/scalp atraumatic and moist oral mucous membranes HEENT Narrative: Moderate hearing loss, Mallampati is 2, no thrush Eyes PERRL and conjunctivae normal Eyes Narrative: No scleral icterus Neck no lymphadenopathy and supple Neck Narrative: Trachea midline, no thyroid enlargement Resp normal respiratory effort, no retractions, no use of accessory muscles and clearto auscultation bilaterally Resp Narrative: Diminished diffusely but clear Auscultation: Negative for rales, rhonchi or wheezes Cardio regular rate, regular rhythm, S1 normal heart sound, S2 normal heart sound, no rub, no gallops and no clicks; Negative for no murmurs Cardio Narrative: 3 out of 6 systolic murmur GI normal to inspection, nondistended, normoactive bowel sounds, soft to palpation and non-tender Extremity Extremity Narrative: Trace to 1+ bilateral lower extremity edema, no cyanosis or clubbing Skin no rashes or lesions noted, no wounds, skin turgor normal, no jaundice, no petechiae and no mottling Skin Narrative: Skin is pale but no significant lesions are noted Neuro oriented x3, CN's II-XII intact bilaterally, moves all extremities and no focal motor deficits Speech: speech normal Psych affect normal Psych Narrative: Very pleasant Weight / BMI Weight Weight: 66.7 kg Body Mass Index (BMI) 27.7 ABG / Lab / Microbiology Data 06/03/23 05:59 06/03/23 05:59 Laboratory: Laboratory Results - last 24 hr 06/03/23 05:59: WBC 5.4, RBC 3.81 L, Hgb 12.0 L, Hct 37.3 L, MCV 97.9 H, MCH 31.5, MCHC 32.2, RDW Std Deviation 58.8 H, RDW Coeff of Jaciel 16.3 H, Plt Count 165, MPV 9.7, Immature Gran % (Auto) 0.200, Neut % (Auto) 65.2, Lymph % (Auto) 22.1, [place] % (Auto) 12.3 H, Eos % (Auto) 0.0, Baso % (Auto) 0.2, Absolute Neuts (auto) 3.5, Absolute Lymphs (auto) 1.19, Nucleated RBC % 0, Sodium 143, Potassium 3.5, Chloride 109 H, Carbon Dioxide 28.0, Anion Gap 6, BUN 21 H, Creatinine 0.72, Estim Creat Clear Calc 43.58, Est GFR (MDRD) Af Amer 136, Est GFR (MDRD) Non-Af 112, BUN/Creatinine Ratio 29.4 H, Glucose 106, Calcium 8.2 L Microbiology: Microbiology 06/01/23 07:59 Urine, Clean Catch Urine Culture - Final Mixed Gram Positive Organisms 06/01/23 07:39 Mucosa - Nasopharyngeal SARS-CoV-2, Influenza & RSV (PCR) - Final SARS-CoV-2 (COVID 19 PCR) D/C Instructions Discharge Diet: Low fat / Low cholesterol Discharge Activity: Return to Normal Activity Return to work on: 06/12/23 Meaningful Use Info Meaningful Use Diagnoses (Choose all that apply): None applicable Discharge Plan Admission Admit Date/Time: 06/01/23 10:03 Primary Reason for Your Visit: Generalized weakness/fall Attending Provider: Melva Wheeler Primary Care Provider: Gloria Hazel Instructions Additional Instructions / Restrictions: 1. Please continue to use your incentive spirometer and Acapella while at home for the next 2 weeks 2. You will need strict isolation until 06/04/2023 and please wear a mask in a public environment or with people until 06/10/2023 3. Complete Decadron as ordered Discharge Orders/Prescriptions Prescriptions: New dexamethasone 4 mg Tablet 6 mg PO DAILY Qty: 7 0RF Continued multivitamin [Daily Multi-Vitamin] Tablet 1 tab PO DAILY finasteride 1 mg tablet 5 mg PO DAILY spironolactone 25 mg tablet 25 mg PO DAILY Qty: 30 12RF Prolia 60 mg/mL syringe 60 mg subcut [id number] Qty: 1 1RF tamsulosin 0.4 MG capsule 0.4 mg PO DAILY@1800 trazodone 100 mg tablet 150 mg PO QHS Simponi ARIA 12.5 mg/mL Solution 12.5 mg IV [id number] Patient Comments: PT GOES TO GET INJECTION EVERY 8 WEEKS CAN NOT REMEMBER LAST SHOT NEXT DUE October gabapentin 300 mg capsule 300 mg PO TID PRN PRN (Reason: NERVE PAIN) Patient Comments: Take 1 (one) Capsule by mouth three times daily, as needed ergocalciferol (vitamin D2) [Vitamin D2] 1,250 mcg (50,000 unit) Capsule 1,250 mcg PO Q7D Qty: 0 0RF furosemide 40 mg Tablet 40 mg PO DAILY 30 Days Qty: 30 0RF polysaccharide iron complex [Ferrex 150] 150 mg iron Capsule 150 mg PO DAILY 30 Days Qty: 30 0RF Hold Instructions: Ordered acetaminophen 500 mg Tablet 1,000 mg PO Q8 Qty: 0 0RF baclofen 10 mg Tablet 10 mg PO TID 30 Days Qty: 90 0RF Xarelto 15 mg Tablet 15 mg PO DINNER 30 Days Qty: 30 0RF methotrexate sodium 2.5 mg tablet 20 mg PO QWEEK sulfasalazine 500 mg tablet,delayed release (DR/EC) 0.5 g PO Q12H tramadol 50 mg tablet 50 mg PO Q8H PRN (Reason: pain) atorvastatin [Lipitor] 40 mg tablet 40 mg PO QHS Qty: 90 3RF amiodarone 200 mg tablet 200 mg PO DAILY Qty: 90 3RF Held prednisone 1 mg tablet 1 mg PO DAILY Qty: 100 1RF Hold Instructions: Restart after your Decadron is complete Patient Comments: 3mg Rx Instructions: 3.5 mg daily for 3 weeks (with 2.5 mg daily) then 3 mg daily Referrals / Follow Up: Gloria Hazel MD [Primary Care Provider] - Within 1 Week Disposition Disposition (needs filled in before D/C Order can be placed): Home, Self Care Charges/Coding Visit Charges Inpatient E&M: 12293 Disch Hosp >30min 06/03/23 1320 <Electronically signed by Melva Wheeler DO> Cosigner Signature (if applicable): CC: Dr. Gloria Hazel MD; Dr. Melva Wheeler DO~ Signed [facility] Work Phone: 1(572) 513-642101-04-2024 History and physical note Author Melva Wheeler [facility] June 01, 2023 4:34pm Note Date/Time June 01, 2023 10 :17am [facility] Medical Records Department [address] [place] [id number] H&P Exam - Hospitalist 06/01/23 1010 MR#: [id number] Acct: [id number] Name: BRYCE ANN Rep #:[id number] : 1940 82 From: Melva Wheeler DO PCP: Dr. Gloria Hazel MD Status:ADM IN Location: [facility] [id number] HPI - General General Date of Admission: 06/01/23 Date of Service: 06/01/23 Chief Complaint: Generalized weakness/fall HPI Narrative BRYCE ANN, is a 82 M who presented to the emergency department at [facility] on 06/01/2023 with a chief complaint of generalized weakness and fall. The patient had reported that he was his normal self up until yesterday afternoon at which time he began having a sore throat and some nasal congestion. He then developed some generalized weakness, cough with intermittent production, myalgias, and mild headache. He has no known sick contacts. He fell around 430 this morning when he was getting up to use the restroom. He reported that his legs just gave out on him and landed on his buttocks. He denied injuries related to his fall but was too weak to get up. He laid on the ground for about 30 minutes and then was able to trigger his lifealert and was brought to the emergency department by the squad. He lives at home alone. Vital signs on presentation showed temperature of 98.9, heart rate was 83, bloodpressure is 131/70, respiratory rate was 19 and oxygen saturation was initially 94% on room air however he dropped to 84% on room air and was placed on 2 L nasal cannula with an oxygen saturation improving to 97%. His CBC shows a chronic stable anemia with a hemoglobin of 12.8 and no leukocytosis however he does have a mild left shift with a 72.4% neutrophilia and a 14.7% monocytosis. His chemistry panel was overall unremarkable. His UA is unremarkable for signs of infection. His lipase was 12. His chest x-ray showed low lung volumes with basilar atelectasis and scarring but no acute findings. Urine culture was sent in the emergency department and his RSV/COVID/flu PCR was positive for COVID-19. [facility] Medical History Anemia Atherosclerotic heart disease of [place] coronary artery without angina pectoris Atrial fibrillation BPH (benign prostatic hyperplasia) Chronic edema Coronary artery disease Former smoker GERD (gastroesophageal reflux disease) History of heart attack History of stress test Lumbar spinal stenosis PAT (paroxysmal atrial tachycardia) Rheumatoid arthritis Secondary adrenal insufficiency SVT (supraventricular tachycardia) Vitamin D deficiency Wears glasses Home Medications tamsulosin 0.4 mg capsule 0.4 mg PO DAILY@1800 Retention 07/18/20 [History Last Taken 05/31/23] finasteride 1 mg tablet 5 mg PO DAILY prostate 12/30/20 [History Last Taken 05/31/23] multivitamin (Daily Multi-Vitamin tablet) 1 tab PO DAILY Check with primary doctor 01/01/21 [History Last Taken 05/31/23] golimumab 12.5 mg/mL intravenous solution (Simponi ARIA) 12.5 mg IV .[id number] injection 05/31/22 [History Last Taken 05/29/23] atorvastatin 40 mg tablet (Lipitor) 40 mg PO QHS Cholesterol #90 tabs 10/07/22 [Rx Last Taken 05/31/23] gabapentin 300 mg capsule 300 mg PO TID PRN PRN NERVE PAIN 10/20/22 [History Last Taken 05/31/23] amiodarone 200 mg tablet 200 mg PO DAILY heart rate #90 tabs 10/28/22 [Rx Last Taken 05/31/23] spironolactone 25 mg tablet 25 mg PO DAILY water pill #30 tabs 11/14/22 [Rx Last Taken 05/31/23] trazodone 100 mg tablet 150 mg PO QHS Check with primary doctor 11/14/22 [History Last Taken 05/31/23] ergocalciferol (vitamin D2) 1,250 mcg (50,000 unit) capsule (Vitamin D2) 1,250 mcg PO Q7D supplememt #0 caps 01/06/23 [Rx Last Taken 05/31/23] acetaminophen 500 mg tablet 1,000 mg (2 x 500 mg) PO Q8 #0 tabs 01/24/23 [Rx Last Taken 06/01/23] baclofen 10 mg tablet 10 mg PO TID 30 days #90 tabs 01/24/23 [Rx Last Taken 05/31/23] furosemide 40 mg tablet 40 mg PO DAILY 30 days #30 tabs 01/24/23 [Rx Last Taken 05/31/23] polysaccharide iron complex 150 mg iron capsule (Ferrex) 150 mg PO DAILY 30 days#30 caps 01/24/23 [Rx Last Taken Unknown] rivaroxaban 15 mg tablet (Xarelto) 15 mg PO DINNER 30 days #30 tabs 01/24/23 [Rx Last Taken 05/31/23] denosumab 60 mg/mL subcutaneous syringe (Prolia) 60 mg subcut [id number] #1 mL 03/10/23 [Rx Last Taken 04/11/23] prednisone 1 mg tablet 1 mg PO DAILY #100 tabs 03/10/23 [Rx Last Taken 05/31/23] methotrexate sodium 2.5 mg tablet 20 mg PO QWEEK 06/01/23 [History Last Taken 05/28/23] sulfasalazine 500 mg tablet,delayed release 0.5 g PO Q12H 06/01/23 [History Last Taken 05/31/23] tramadol 50 mg tablet 50 mg PO Q8H PRN pain 06/01/23 [History Last Taken 05/31/23] Allergy/AdvReac Type Severity Reaction Status Date / Time No Known Allergies Allergy Verified 06/01/23 06:54 Family History Father CVA (cerebral vascular accident) Brother CAD (coronary artery disease) CABG X 3 Mother CVA (cerebral vascular accident) Grandfather Cancer prostate Surgical History H/O colonoscopy H/O umbilical hernia repair History of cardiac catheterization History of coronary artery stent placement (08/06/20) History of coronary artery stent placement History of lumbar surgery Hx of colectomy Hx of laminectomy Hx of transurethral resection of prostate S/P appendectomy S/P cataract surgery S/P hemorrhoidectomy S/P inguinal hernia repair S/P laparoscopic cholecystectomy S/P left colectomy S/P rotator cuff repair S/P vasectomy Social History (Updated 06/01/23 @ 16:[address] Melva Wheeler DO) household members: none housing: house current occupational status: retired Smoking Status: Former smoker how long ago did patient quit smokin years ago alcohol intake: never substance use type: does not use diet: low salt caffeine: Yes Type: coffee Number of servings: 4 ROS Constitutional Constitutional: Reports anorexia, chills, fatigue, malaise and weakness; Denies change in weight, fever(s), night sweats or other Eyes Eyes: Denies blurry vision, change in eye color, change in vision, discharge from eye(s), double vision, erythema, eye pain, loss of vision or other ENT HEENT: Reports headache(s), nasal congestion, nasal discharge, post nasal drip and sore throat Cardiovascular Cardiovascular: Reports dyspnea on exertion; Denies chest pain, claudication, edema, lightheadedness, orthopnea, palpitations, paroxysmal nocturnal dyspnea, rapid heart rate, syncope or other Respiratory/Chest Respiratory/Chest: Reports cough, dyspnea, excessive phlegm production, productive cough, shortness of breath at rest and shortness of breath with exertion; Denies hemoptysis, wheezing or other Gastrointestinal Gastrointestinal: Denies abdominal pain, coffee ground emesis, constipation, diarrhea, dyspepsia, hematemesis, hematochezia, loose stools, melena, nausea, vomiting or other Genitourinary Genitourinary: Denies burning urination, difficulty urinating, dysuria, hematuria, nocturia, urinary frequency, urinary hesitancy, urinary incontinence,urinary urgency or other Musculoskeletal Musculoskeletal: Reports back pain, joint pain, joint stiffness and myalgias; Denies arthralgias, joint swelling, neck pain or other Neurologic Neurologic: Reports headache(s); Denies abnormal gait, abnormal speech, confusion, disequilibrium, dizziness, focal weakness, numbness, paresthesias, seizure-like activity, seizures, syncope, tingling, tremor(s) or other Psychiatric Psychiatric: Denies anxiety, depression, homicidal ideation, suicidal ideation or other Endocrine Endocrinology: Denies change in body appearance, cold intolerance, excessive sweating, heat intolerance, polydipsia, polyuria or other Hematologic/Lymphatic Hematologic/Lymphatic: Denies anemia, easy bleeding, easy bruising, lymphadenopathy or other Allergic/Immunologic Allergic/Immunologic: Denies rhinitis, hives, eczemia, asthma or other Vital Signs Vital Signs Vital Signs: 06/01/23 06:54 06/01/23 06:54 06/01/23 07:44 Temperature 98.9 F Temperature Source Temporal Pulse Rate 83 Respiratory Rate 19 H Respiratory Effort Normal Non-Labored Respiratory Depth Normal Respiratory Pattern Normal Blood Pressure 131/70 H Blood Pressure Mean 90 Pulse Ox 94 84 Oxygen Delivery Method Room Air Room Air Nasal Cannula Oxygen Flow Rate (L/min) 2 Weight Weight: 66.8 kg Body Mass Index (BMI) 27.8 Physical Exam Const alert, oriented x3, no apparent distress, average body habitus and well nourished; Negative for healthy appearing Constitutional Narrative: Elderly, white male, sitting up in bed, sounds very congested during conversation, no signs of respiratory distress, currently appears comfortable and nontoxic but does appear ill General Appearance: cooperative HEENT normocephalic, head/scalp atraumatic and moist oral mucous membranes HEENT Narrative: Mallampati 2-3, no thrush, mild hearing loss Eyes PERRL and conjunctivae normal Eyes Narrative: No scleral icterus Neck no lymphadenopathy and supple Neck Narrative: Trachea midline, no thyroid enlargement Resp normal respiratory effort, no retractions, no use of accessory muscles and clearto auscultation bilaterally Resp Narrative: Diminished diffusely but clear Auscultation: Negative for rales, rhonchi or wheezes Cardio regular rate, regular rhythm, S1 normal heart sound, S2 normal heart sound, no rub and no gallops; Negative for no murmurs Cardio Narrative: 3 out of 6 systolic murmur GI normal to inspection, nondistended, normoactive bowel sounds, soft to palpation and non-tender Extremity Extremity Narrative: Tube less lower extremity edema that patient reports chronic, no cyanosis or clubbing Skin no rashes or lesions noted, no wounds, skin turgor normal, no jaundice, no petechiae and no mottling Skin Narrative: Skin is pale but no significant lesions are noted Neuro oriented x3, moves all extremities and no focal motor deficits Speech: speech normal Psych affect normal Psych Narrative: Very pleasant Results Lab / Micro Data 06/01/23 07:39 06/01/23 07:39 Labs: Laboratory Results - last 24 hr 06/01/23 07:39: WBC 5.0, RBC 3.95 L, Hgb 12.8 L, Hct 38.7 L, MCV 98.0 H, MCH 32.4 H, MCHC 33.1, RDW Std Deviation 58.1 H, RDW Coeff of Jaciel 15.9 H, Plt Count 164, MPV 9.6, Immature Gran % (Auto) 0.200, Neut % (Auto) 72.4 H, Lymph % (Auto)10.5 L, [place] % (Auto) 14.7 H, Eos % (Auto) 1.6, Baso % (Auto) 0.6, Absolute Neuts (auto) 3.7, Absolute Lymphs (auto) 0.53 L, Nucleated RBC % 0, DifferentialComment COMMENT, Sodium 139, Potassium 4.0, Chloride 103, Carbon Dioxide 30.0, Anion Gap 6, BUN 14, Creatinine 0.92, Estim Creat Clear Calc 47.37, Est GFR (MDRD) Af Amer 102, Est GFR (MDRD) Non-Af 85, BUN/Creatinine Ratio 15.3, [id number] H, Calcium 8.5, Total Bilirubin 0.40, AST 25, ALT 26, Alkaline Phosphatase 67, Total Creatine Kinase 184, Troponin I High Sens 20, Total Protein 6.9, Albumin 3.4, Globulin 3.5, Albumin/Globulin Ratio 1.0, Lipase 12 L 06/01/23 07:54: Urine Color YELLOW, Urine Clarity Clear, Urine pH 7.0, Ur Specific [place] 1.010, Urine Protein 15 H, Urine Glucose (UA) NEGATIVE, Urine Ketones 50, Urine Occult Blood Negative, Urine Nitrite Negative, Urine BilirubinNegative, Urine Urobilinogen Normal, Ur Leukocyte Esterase Negative, Urine RBC 0SEEN, Urine WBC 5-10 SEEN, Ur Squamous Epith Cells 5-10 SEEN, Urine Bacteria 2+,Urine Mucus 0 SEEN Micro: Microbiology 06/01/23 07:39 Mucosa - Nasopharyngeal SARS-CoV-2, Influenza & RSV (PCR) - Final SARS-CoV-2 (COVID 19 PCR) Rhythm Strip Rhythm Strip: A-fib Rate: 84 Ectopy: None Imagaing Radiology Impression Chest X-Ray 06/01/23 08:00 IMPRESSION: Low lung volumes with bibasilar atelectasis and scarring. Electronically Signed: Danielle Diaz MD at 8:38 EST , Assessment & Plan Assessment/Plan (1) Hypoxia: (2) Weakness: (3) COVID-19: PLAN: Plan Acute hypoxia secondary to COVID-19 infection -Currently required 2 L nasal cannula to keep sats greater than 88% -Was 86% on room air -Symptoms started on 05/31/2023--> will need strict isolation through 06/04/2023 andwear a mask in public environments through 06/10/2023 -Start Decadron 6 mg daily and hold home prednisone -Will hold on remdesivir at this time due to the patient being on multiple medications with of which there could be interaction -Check CRP -As needed albuterol -I-S -Acapella -Antitussives ordered -Supportive care Falls/debility/generalized weakness -PT/OT consultation -Patient does live home alone -Case management and social work consulted to assist with discharge planning History of lumbar spine compression fractures/rib fractures -Notable at L1 and L5 with recent kyphoplasty -Also endplate damage noted at L2 and L3 with uncertain chronicity -As needed Tylenol available Osteoporosis -Patient is on Prolia at baseline -Recheck vitamin D level -Follows with Dr. 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 Unsuccessful PCI of SEWER DIGGER of LAD 08/06/2020 -Continue statin -Continue aspirin 81 mg -Continue home amiodarone -Continue home Lasix -Continue home Aldactone -No signs currently of acute decompensated heart failure -Last echocardiogram done on 09/24/2022 shows an EF of 50% with hypokinetic apex and mild left atrial enlargement along with moderate aortic stenosis Insomnia -Continue home trazodone Rheumatoid arthritis -Patient takes as needed prednisone 10 mg daily as needed -Will be on Decadron while hospitalized and likely discharge -Will continue home Simponi at discharge Chronic peripheral edema -Continue home diuretics -Jeremiah wrap's ordered while hospitalized BPH with obstruction -Continue home finasteride -Continue home Flomax Insomnia -Continue home trazodone History of tobacco abuse -Encouraged ongoing cessation DVT prophylaxis -Continue home Xarelto CODE STATUS -DNR CCA with no intubation as verified on admission Charges/Coding Visit Charges Inpatient E&M: 97981 Init Hosp L2 06/01/23 1634 <Electronically signed by Melva Wheeler DO> Cosigner Signature (if applicable): CC: Dr. Gloria Hazel MD; Dr. Melva Wheeler DO~ Signed [facility] Work Phone: [phone]) 872-404101-04-2024 Discharge summary Author Halle Dale [facility] June 01, 2023 10:12am Note Date/Time June 01, 2023 7: 25am [facility] Medical Records Department [address] [place] [address] Emergency Department Summary 06/01/23 MR#: [id number] Acct: [id number] Name: BRYCE ANN Rep #:[id number] : 1940 82 From: Halle Malik PCP: Dr. Gloria Hazel MD Status:REG ER Location: ED HPI History of Present Illness Chief Complaint: Fall Informant: patient Narrative Narrative: Patient is an 82-year-old male with history of rheumatoid arthritis (on methotrexate), coronary artery disease, proximal A-fib (on Xarelto and amiodarone) as well as BPH presenting for generalized weakness and a fall. Patient states that he woke up around 08/30/1929 this morning and went to use restroom. His legs gave out on him and he landed on his buttocks. He denies any major injuries however he was too weak to get up. He states he laid on the ground for about 30 minutes and then triggered his life alert. He was brought to the ER. Denies any pain to states he feels very weak. He notes yesterday hestarted develop a sore throat and now has some mild nasal congestion, chills andhad dry heaves last night. Denies any change in urination but notes his chronicnocturnal urinary frequency. Denies any black or blood in his stool. Denies any change in his bowel habits. Denies abdominal pain, SOB, cough or chest pain. Denies any fever. No other complaints or concerns at this time. States he lives home alone. His main complaint is he feels very weak. He has chronic low back pain which is unchanged at this time. [facility] Medical History Anemia Atherosclerotic heart disease of [place] coronary artery without angina pectoris Atrial fibrillation BPH (benign prostatic hyperplasia) Chronic edema Coronary artery disease Former smoker GERD (gastroesophageal reflux disease) History of heart attack History of stress test Lumbar spinal stenosis PAT (paroxysmal atrial tachycardia) Rheumatoid arthritis Secondary adrenal insufficiency SVT (supraventricular tachycardia) Vitamin D deficiency Wears glasses Home Medications tamsulosin 0.4 mg capsule 0.4 mg PO DAILY@1800 Retention 07/18/20 [History Last Taken 01/05/23] finasteride 1 mg tablet 5 mg PO DAILY prostate 12/30/20 [History Last Taken 01/06/23] multivitamin (Daily Multi-Vitamin tablet) 1 tab PO DAILY Check with primary doctor 01/01/21 [History Last Taken 01/06/23] mirtazapine 15 mg tablet 15 mg PO QHS sleep 01/10/22 [History Last Taken 01/05/23] golimumab 12.5 mg/mL intravenous solution (Simponi ARIA) 12.5 mg IV .[id number] injection 05/31/22 [History Last Taken Unknown] atorvastatin 40 mg tablet (Lipitor) 40 mg PO QHS Cholesterol #90 tabs 10/07/22 [Rx Last Taken 01/05/23] gabapentin 300 mg capsule 300 mg PO TID PRN PRN NERVE PAIN 10/20/22 [History Last Taken 10/20/22] amiodarone 200 mg tablet 200 mg PO DAILY heart rate #90 tabs 10/28/22 [Rx Last Taken 01/06/23] spironolactone 25 mg tablet 25 mg PO DAILY water pill #30 tabs 11/14/22 [Rx Last Taken 01/06/23] trazodone 100 mg tablet 100 mg PO QHS Check with primary doctor 11/14/22 [History Last Taken 01/05/23] prednisone 10 mg tablet 10 mg PO DAILY PRN RA FLARE UP 01/04/23 [History Last Taken Unknown] ergocalciferol (vitamin D2) 1,250 mcg (50,000 unit) capsule (Vitamin D2) 1,250 mcg PO Q7D supplememt #0 caps 01/06/23 [Rx Last Taken 01/05/23] acetaminophen 500 mg tablet 1,000 mg (2 x 500 mg) PO Q8 #0 tabs 01/24/23 [Rx Last Taken Unknown] arginine 7 gram-glutam 7 gram-CaHMB 1.5 [id number]-min oral pwd pkt (Tian (with collagen)) 1 packet PO BIDCM 30 days #60 ea 01/24/23 [Rx Last Taken Unknown] baclofen 10 mg tablet 10 mg PO TID 30 days #90 tabs 01/24/23 [Rx Last Taken Unknown] furosemide 40 mg tablet 40 mg PO DAILY 30 days #30 tabs 01/24/23 [Rx Last Taken Unknown] levofloxacin 750 mg tablet 750 mg PO DAILY@0600 4 days #4 tabs 01/24/23 [Rx Last Taken Unknown] lidocaine 5 % topical patch 1 patch topical DAILY 30 days #30 ea 01/24/23 [Rx Last Taken Unknown] polysaccharide iron complex 150 mg iron capsule (Ferrex) 150 mg PO DAILY 30 days#30 caps 01/24/23 [Rx Last Taken Unknown] rivaroxaban 15 mg tablet (Xarelto) 15 mg PO DINNER 30 days #30 tabs 01/24/23 [Rx Last Taken Unknown] sennosides 8.6 mg-docusate sodium 50 mg tablet (Stool Softener-Stimulant Laxative) 2 tab PO BID 30 days #120 tabs 01/24/23 [Rx Last Taken Unknown] oxycodone 5 mg tablet 5 mg PO Q4H PRN pain 3 days #18 tabs 01/27/23 [Rx Last Taken Unknown] denosumab 60 mg/mL subcutaneous syringe (Prolia) 60 mg subcut [id number] #1 mL 03/10/23 [Rx Last Taken Unknown] prednisone 1 mg tablet 1 mg PO DAILY #100 tabs 03/10/23 [Rx Last Taken Unknown] prednisone 2.5 mg tablet 2.5 mg PO DAILY #21 tabs 03/10/23 [Rx Last Taken Unknown] Allergy/AdvReac Type Severity Reaction Status Date / Time No Known Allergies Allergy Verified 06/01/23 06:54 Family History Father CVA (cerebral vascular accident) Brother CAD (coronary artery disease) CABG X 3 Mother CVA (cerebral vascular accident) Grandfather Cancer prostate Surgical History H/O colonoscopy H/O umbilical hernia repair History of cardiac catheterization History of coronary artery stent placement (08/06/20) History of coronary artery stent placement History of lumbar surgery Hx of colectomy Hx of laminectomy Hx of transurethral resection of prostate S/P appendectomy S/P cataract surgery S/P hemorrhoidectomy S/P inguinal hernia repair S/P laparoscopic cholecystectomy S/P left colectomy S/P rotator cuff repair S/P vasectomy Social History household members: none Smoking Status: Former smoker how long ago did patient quit smokin years ago alcohol intake: never substance use type: does not use diet: low salt caffeine: Yes Type: coffee Number of servings: 4 ROS ROS ED Constitutional Constitutional ED: Reports chills; Denies fever(s) Eyes Eyes: Denies change in vision ENT ENT ED: Reports sore throat and other Details: nasal congestion Cardiovascular Cardiovascular: Denies chest pain or palpitations Respiratory/Chest Respiratory/Chest: Denies cough or dyspnea Gastrointestinal Gastrointestinal: Reports nausea; Denies abdominal pain, constipation or vomiting Genitourinary Genitourinary ED: Reports urinary frequency; Denies dysuria or hematuria Musculoskeletal Musculoskeletal: Reports arthralgias and back pain Integumentary Denies rash Neurologic Neurologic: Reports weakness; Denies headache(s) or paresthesias Psychiatric Psychiatric: Denies anxiety Hematologic/Lymphatic Hematologic/Lymphatic: Reports easy bleeding and easy bruising EXAM Physical Exam Const Vital Signs: 06/01/23 06:54 06/01/23 06:54 06/01/23 07:44 Temperature 98.9 F Temperature Source Temporal Pulse Rate 83 Respiratory Rate 19 H Respiratory Effort Normal Non-Labored Respiratory Depth Normal Respiratory Pattern Normal Blood Pressure 131/70 H Blood Pressure Mean 90 Pulse Ox 94 84 Oxygen Delivery Method Room Air Room Air Nasal Cannula Oxygen Flow Rate (L/min) 2 Positive well nourished and well developed General Appearance ED: well developed and NAD HEENT Reports dry mucous membranes HEENT Narrative: mild nasal congestion present Negative for trauma Mouth ED: Yes dry mucous membranes Mouth: dry mucous membranes Eyes PERRL Neck supple and no JVD Chest Wall inspection of chest normal and palpation of chest normal Resp normal respiratory effort and clear to auscultation bilaterally Cardio regular rate and regular rhythm GI normal to inspection, nondistended, normoactive bowel sounds and non-tender Back/Spine no CVA tenderness Thoracic Spine / Upper Back: Negative for thoracic spinal tenderness Lumbar Spine / Lower Back: Negative for lumbar spinal tenderness Extremity normal to inspection Extremity Narrative: Chronic appearing lower extremity edema General Extremety ED: Yes edema General Extremity: edema Neuro oriented x3 Sensorium / Orientation: alert Motor Exam: general weakness Psych mental status grossly normal Skin no rashes or lesions noted and no wounds MDM MDM MDM Narrative Medical decision making narrative: Evaluated for generalized weakness and fall. He appears nontoxic in no acute distress. Concern for infectious etiology after the cause of his weakness and subsequent fall. Low concern for major traumatic injury at this time. Vital signs are normal. Will also screen for cardiac cause of his weakness or major electrolyte derangement/dehydration. Anticoagulated on Xarelto so low suspicionfor pulmonary emboli. Patient given IV fluids. Does have mild desaturation. Respiratory documented that he went down to 84% onroom air was placed on 2 L. He responded nicely to this. We tried him off oxygen at rest and he still went down to 89%. He is found to be COVID-positive. Workup otherwise largely unremarkable. Urine likely contaminant but will send for culture as does have 2+ bacteria. 1 view chest x-ray viewed by myself as well as radiology shows chronic changes with no acute infiltrative process. Given his generalized weakness, debility, positive COVID and mild hypoxia will be admitted for further treatment observation in the hospital. Patient is agreeable. Patient also at high risk as he is immunosuppressed on chronic steroids and Biologics for his RA. Case is discussed with admitting physician, Dr. Wheeler. Lab Data Attestation: I reviewed the patient's lab results. Labs: Laboratory Results - last 24 hr 06/01/23 06/01/23 07:39 07:54 WBC 5.0 RBC 3.95 L Hgb 12.8 L Hct 38.7 L MCV 98.0 H MCH 32.4 H MCHC 33.1 RDW Std Deviation 58.1 H RDW Coeff of Jaciel 15.9 H Plt Count 164 MPV 9.6 Immature Gran % (Auto) 0.200 Neut % (Auto) 72.4 H Lymph % (Auto) 10.5 L [place] % (Auto) 14.7 H Eos % (Auto) 1.6 Baso % (Auto) 0.6 Absolute Neuts (auto) 3.7 Absolute Lymphs (auto) 0.53 L Nucleated RBC % 0 Differential Comment COMMENT Sodium 139 Potassium 4.0 Chloride 103 Carbon Dioxide 30.0 Anion Gap 6 BUN 14 Creatinine 0.92 Estim Creat Clear Calc 47.37 Est GFR (MDRD) Af Amer 102 Est GFR (MDRD) Non-Af 85 BUN/Creatinine Ratio 15.3 Glucose 111 H Calcium 8.5 Total Bilirubin 0.40 AST 25 ALT 26 Alkaline Phosphatase 67 Total Creatine Kinase 184 Troponin I High Sens 20 Total Protein 6.9 Albumin 3.4 Globulin 3.5 Albumin/Globulin Ratio 1.0 Lipase 12 L Urine Color YELLOW Urine Clarity Clear Urine pH 7.0 Ur Specific [place] 1.010 Urine Protein 15 H Urine Glucose (UA) NEGATIVE Urine Ketones 50 Urine Occult Blood Negative Urine Nitrite Negative Urine Bilirubin Negative Urine Urobilinogen Normal Ur Leukocyte Esterase Negative Urine RBC 0 SEEN Urine WBC 5-10 SEEN Ur Squamous Epith Cells 5-10 SEEN Urine Bacteria 2+ Urine Mucus 0 SEEN Radiography Chest X-Ray - ED: 1 View, Read by Radiologist, No Acute Disease and Chronic Changes Diagnostic Testing: Clinical Impression(s) from Imaging Studies Chest X-Ray 06/01/23 08:00 IMPRESSION: Low lung volumes with bibasilar atelectasis and scarring. Electronically Signed: Danielle Diaz MD at 8:38 EST , Rhythm Strip Rhythm Strip: A-fib Rate: 84 Ectopy: None EKG Initial EKG: Attestation: I personally reviewed and interpreted this EKG as follows: Interpretation: Atrial Fibrillation Comments: Atrial fibrillation at a rate of 84 bpm Grossly normal axis No significant see abnormalities however there is a significant amount of artifact making further interpretation difficult Discharge Plan Triage Chief Complaint: Fall ED Provider: Halle Dale Dx/Rx/DC Orders Clinical Impression: COVID-19, Weakness, Hypoxia, intermediate (current) use of anticoagulants Prescriptions: No Action mirtazapine 15 mg tablet 15 mg PO QHS multivitamin [Daily Multi-Vitamin] Tablet 1 tab PO DAILY finasteride 1 mg tablet 5 mg PO DAILY spironolactone 25 mg tablet 25 mg PO DAILY Qty: 30 12RF prednisone 1 mg tablet 1 mg PO DAILY Qty: 100 1RF Rx Instructions: 3.5 mg daily for 3 weeks (with 2.5 mg daily) then 3 mg daily prednisone 2.5 mg tablet 2.5 mg PO DAILY Qty: 21 0RF Rx Instructions: 3.5 mg daily for 3 weeks (with 1 mg tablet) Prolia 60 mg/mL syringe 60 mg subcut [id number] Qty: 1 1RF tamsulosin 0.4 MG capsule 0.4 mg PO DAILY@1800 trazodone 100 mg tablet 100 mg PO QHS Simponi ARIA 12.5 mg/mL Solution 12.5 mg IV .[id number] Patient Comments: PT GOES TO GET INJECTION EVERY 8 WEEKS CAN NOT REMEMBER LAST SHOT NEXT DUE October gabapentin 300 mg capsule 300 mg PO TID PRN PRN (Reason: NERVE PAIN) Patient Comments: Take 1 (one) Capsule by mouth three times daily, as needed prednisone 10 mg tablet 10 mg PO DAILY PRN (Reason: RA FLARE UP) Rx Instructions: As instructed ergocalciferol (vitamin D2) [Vitamin D2] 1,250 mcg (50,000 unit) Capsule 1,250 mcg PO Q7D Qty: 0 0RF furosemide 40 mg Tablet 40 mg PO DAILY 30 Days Qty: 30 0RF polysaccharide iron complex [Ferrex 150] 150 mg iron Capsule 150 mg PO DAILY 30 Days Qty: 30 0RF sennosides-docusate sodium [Stool Softener-Stimulant Laxat] 8.6-50 mg Tablet 2 tab PO BID 30 Days Qty: 120 0RF acetaminophen 500 mg Tablet 1,000 mg PO Q8 Qty: 0 0RF baclofen 10 mg Tablet 10 mg PO TID 30 Days Qty: 90 0RF lidocaine 5 % Adhesive Patch,Medicated 1 patch topical DAILY 30 Days Qty: 30 0RF Protocol: *Topical Application Instructions APPLICATION INSTRUCTIONS: lumbar spine in painful region levofloxacin 750 mg Tablet 750 mg PO DAILY@0600 4 Days Qty: 4 0RF Xarelto 15 mg Tablet 15 mg PO DINNER 30 Days Qty: 30 0RF Tian (with collagen) 7-7-1.5 gram Powder In Packet 1 packet PO BIDCM 30 Days Qty: 60 0RF oxycodone 5 mg tablet 5 mg PO Q4H PRN (Reason: pain) 3 Days Qty: 18 0RF atorvastatin [Lipitor] 40 mg tablet 40 mg PO QHS Qty: 90 3RF amiodarone 200 mg tablet 200 mg PO DAILY Qty: 90 3RF Primary Care Provider: Gloria Hazel Referrals: Gloria Hzael MD [Primary Care Provider] - Disposition Disposition: Acute Care Hospital [facility] What to do if you have Problems For any increased pain, shortness of breath, bleeding, nausea or vomiting, chestpain, or any unexpected problems, contact your Primary Care Provider. Call [facility] ([phone]) or report to the closest Emergency Room. Call 911 if necessary. 06/01/23 1012 <Electronically signed by Halle Dale DO> Cosigner Signature (if applicable): CC: Dr. Gloria Hazel MD ~ Signed [facility] Work Phone: [phone] 940-231708-29-2023 Discharge summary Author Yogesh Lebron [facility] January 27, 2023 1:56pm Note Date/Time January 24, 2023 8: 45pm [facility] Medical Records Department [address] [place] [address] Discharge Summary 01/24/232042 MR#: [id number] Acct: [id number] Name: BRYCE ANN Rep #:[id number] : 1940 82 From: Yogesh Lebron MD PCP: Dr. Gloria Hazel MD Status:ADM IN Location: [place] [address] Providers Date of Admission: 01/06/23 Primary Care Physician: Dr. Gloria Hazel MD Reason For Visit: FALL, RHABDOMYOLYSIS, ADULT FTT Diagnosis Discharge Diagnosis (1) Debility: Status: Acute Code(s): R53.81 - Other malaise (2) History of recent fall: Status: Acute Code(s): Z91.81 - History of falling (3) Rib fractures: Status: Acute Code(s): S22.49XA - Multiple fractures of ribs, unspecified side, initial encounter for closed fracture (4) Compression fracture of L1 vertebra: Status: Acute Code(s): S32.010A - Wedge compression fracture of first lumbar vertebra, initial encounter for closed fracture (5) Compression fracture of L5 vertebra: Status: Acute Code(s): S32.050A - Wedge compression fracture of fifth lumbar vertebra, initial encounter for closed fracture (6) Rhabdomyolysis: Status: Resolved Code(s): M62.82 - Rhabdomyolysis (7) Atrial fibrillation: Status: Chronic Code(s): I48.91 - Unspecified atrial fibrillation Qualifiers: Atrial fibrillation type: paroxysmal Qualified Code(s): I48.0 - Paroxysmal atrial fibrillation (8) Hypoxia: Status: Acute Code(s): R09.02 - Hypoxemia (9) Depression: Status: Acute Code(s): F32.A - Depression, unspecified (10) Chronic pain: Status: Chronic Code(s): G89.29 - Other chronic pain (11) Hyperlipidemia: Status: Acute Code(s): E78.5 - Hyperlipidemia, unspecified (12) Neuropathic pain: Status: Acute Code(s): M79.2 - Neuralgia and neuritis, unspecified (13) Insomnia: Status: Inactive Code(s): G47.00 - Insomnia, unspecified (14) Iron deficiency anemia: Status: Acute Code(s): D50.9 - Iron deficiency anemia, unspecified (15) Acute on chronic heart failure with preserved ejection fraction: Status: Acute Code(s): I50.33 - Acute on chronic diastolic (congestive) heart failure Plan 82 year old male with below past medical history hospitalized for weakness, rhabdomyolysis, rib fractures, lumbar compression fractures, complicated by acute on chronic heart failure with preserved ejection fraction, admitted to [facility], here for rehabilitation, strengthening, prior to discharge home alone. * Debility - PT/OT. * Pain - Tylenol 1000mg q8, Oxycodone 5mg q4h prn pain (6-10), Lidoderm topical daily. * Bowel - Miralax 17gm bid, senna/colace 2 tablets bid, Magnesium citrate 300ml po daily prn. * Adult immunization - Administer pneumonia vaccine, covid19 vaccine, flu vaccine as appropriate. * DVT prophylaxis - on Xarelto. * Atrial fibrillation - Amiodarone 200mg daily, Xarelto 20mg daily. * Hyperlipidemia - Atorvastatin 40mg qhs. * s/p kyphoplasty - Keflex 500mg q6h thru 01/12/2023. * Vitamin D deficiency - D 1.25mg per week. * BPH - Finasteride 5mg daily, Tamsulosin 0.4mg daily. * Rheumatoid Arthritis - Hold Simponi Aria, on Folic acid 2mg daily, prednisone 10mg daily prn. * Chronic heart failure with preserved ejection fraction - Aldactone 25mg daily, Furosemide 80mg daily. * Neuropathic pain - Gabapentin 300mg tid prn. * Iron deficiency anemia - Ferrex 150mg daily. * Nutrition - MVI daily, Tian 1 packet bid. 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 * Insomnia - Trazodone 100mg qhs, stable chronic long-term use, GDR not recommended. * Leg cramps - Vitamin B complex 1 capsule daily. Medications at Discharge Home Medications tamsulosin 0.4 mg capsule 0.4 mg PO DAILY@1800 Retention 07/18/20 folic acid 1 mg tablet 2 mg PO DAILY supplement 09/28/20 finasteride 1 mg tablet 5 mg PO DAILY prostate 12/30/20 multivitamin (Daily Multi-Vitamin tablet) 1 tab PO DAILY Check with primary doctor 01/01/21 mirtazapine 15 mg tablet 15 mg PO QHS sleep 01/10/22 vitamin B12 2,500 mcg-folic acid 400 mcg disintegrating tablet 1 tab PO DAILY Check with primary doctor 01/10/22 golimumab 12.5 mg/mL intravenous solution (Simponi ARIA) 12.5 mg IV .[id number] injection 05/31/22 atorvastatin 40 mg tablet (Lipitor) 40 mg PO QHS Cholesterol #90 tabs 10/07/22 gabapentin 300 mg capsule 300 mg PO TID PRN PRN NERVE PAIN 10/20/22 amiodarone 200 mg tablet 200 mg PO DAILY heart rate #90 tabs 10/28/22 spironolactone 25 mg tablet 25 mg PO DAILY water pill #30 tabs 11/14/22 trazodone 100 mg tablet 100 mg PO QHS Check with primary doctor 11/14/22 prednisone 10 mg tablet 10 mg PO DAILY PRN RA FLARE UP 01/04/23 ergocalciferol (vitamin D2) 1,250 mcg (50,000 unit) capsule (Vitamin D2) 1,250 mcg PO Q7D supplememt #0 caps 01/06/23 acetaminophen 500 mg tablet 1,000 mg (2 x 500 mg) PO Q8 #0 tabs 01/24/23 arginine 7 gram-glutam 7 gram-CaHMB 1.5 vgzy-qhnfj-al-min oral pwd pkt (Tian (with collagen)) 1 packet PO BIDCM 30 days #60 ea 01/24/23 baclofen 10 mg tablet 10 mg PO TID 30 days #90 tabs 01/24/23 furosemide 40 mg tablet 40 mg PO DAILY 30 days #30 tabs 01/24/23 levofloxacin 750 mg tablet 750 mg PO DAILY@0600 4 days #4 tabs 01/24/23 lidocaine 5 % topical patch 1 patch topical DAILY 30 days #30 ea 01/24/23 oxycodone 5 mg tablet 5 mg PO Q4H PRN PRN Pain Score 6-10 7 days #42 tabs 01/24/23 polysaccharide iron complex 150 mg iron capsule (Ferrex) 150 mg PO DAILY 30 days#30 caps 01/24/23 rivaroxaban 15 mg tablet (Xarelto) 15 mg PO DINNER 30 days #30 tabs 01/24/23 sennosides 8.6 mg-docusate sodium 50 mg tablet (Stool Softener-Stimulant Laxative) 2 tab PO BID 30 days #120 tabs 01/24/23 Hospital Course Operations None Procedures None Summary of Care Provided Minutes Spent on Discharge: 35 Hospital Course: 82 year old male with below past medical history hospitalized for weakness, rhabdomyolysis, rib fractures, lumbar compression fractures, complicated by acute on chronic heart failure with preserved ejection fraction, admitted to [facility], here for rehabilitation, strengthening, prior to discharge home alone. 01/21/2023 Fall, head injury, CT head negative. 01/23/2023 Resident treated for bronchitis with Levaquin, Medrol dosepack. Discharge home alone 01/27/2023, pending appeal, [facility] PT/OT/[place]. Physical Exam Const alert General Appearance: cooperative HEENT normocephalic Eyes PERRL and EOMs intact bilaterally Neck supple, no JVD and no carotid bruits Resp normal respiratory effort, normal air movement and clear to auscultation bilaterally Cardio regular rate and regular rhythm GI normal to inspection, nondistended, normoactive bowel sounds, non-tender and non-distended Extremity normal capillary refill General Extremity: Negative for edema Skin no rashes or lesions noted General Skin Exam: no breakdown Psych affect normal Appearance: appropriate Weight / BMI Weight Weight: 61.054 kg Body Mass Index (BMI) 25.4 ABG / Lab / Microbiology Data 01/23/23 21:29 01/23/23 21:29 Laboratory: Laboratory Results - last 24 hr 01/23/23 21:29: WBC 7.8, RBC 3.65 L, Hgb 11.6 L, Hct 37.4 L, MCV 102.5 H, MCH 31.8, MCHC 31.0 L, RDW Std Deviation 78.0 H, RDW Coeff of Jaciel 20.0 H, Plt Count 216, MPV 9.3, Immature Gran % (Auto) 0.300, Neut % (Auto) 72.2 H, Lymph % (Auto)11.5 L, [place] % (Auto) 11.6 H, Eos % (Auto) 3.9, Baso % (Auto) 0.5, Absolute Neuts (auto) 5.6, Absolute Lymphs (auto) 0.89, Nucleated RBC % 0, Differential Comment , Sodium 136, Potassium 4.2, Chloride 102, Carbon Dioxide 31.0, Anion Gap 3 L, BUN 33 H, Creatinine 0.78, Estim Creat Clear Calc 43.58, Est GFR (MDRD)Af Amer 124, Est GFR (MDRD) Non-Af 102, BUN/Creatinine Ratio 42.5 H, Glucose 114H, Calcium 8.6 D/C Instructions Discharge Diet: No restrictions Discharge Activity: Return to Normal Activity, May Shower and Use Walker Weight Bearing Status: Weight bearing as tolerated Call your doctor if you observe: Fever of 101 or Higher, Inability to urinate, Inability to have a bowel movement, Shortness of breath, Dizziness, Fainting spells, Swelling in the ankles, Chest pain and Uncontrolled pain Additional Instructions: Discharge home alone 01/27/2023, pending [facility] Care PT/OT/[place]. Meaningful Use Info Meaningful Use Diagnoses (Choose all that apply): None applicable Discharge Plan Admission Admit Date/Time: 01/06/23 17:52 Primary Reason for Your Visit: Debility. Attending Provider: Yogesh Lebron Chi Primary Care Provider: Gloria Hazel Instructions Additional Instructions / Restrictions: Discharge home alone 01/27/2023, pending [facility] Care PT/OT/[place]. Discharge Orders/Prescriptions Prescriptions: New furosemide 40 mg Tablet 40 mg PO DAILY 30 Days Qty: 30 0RF polysaccharide iron complex [Ferrex 150] 150 mg iron Capsule 150 mg PO DAILY 30 Days Qty: 30 0RF sennosides-docusate sodium [Stool Softener-Stimulant Laxat] 8.6-50 mg Tablet 2 tab PO BID 30 Days Qty: 120 0RF acetaminophen 500 mg Tablet 1,000 mg PO Q8 Qty: 0 0RF baclofen 10 mg Tablet 10 mg PO TID 30 Days Qty: 90 0RF lidocaine 5 % Adhesive Patch,Medicated 1 patch topical DAILY 30 Days Qty: 30 0RF Protocol: *Topical Application Instructions APPLICATION INSTRUCTIONS: lumbar spine in painful region levofloxacin 750 mg Tablet 750 mg PO DAILY@0600 4 Days Qty: 4 0RF oxycodone 5 mg Tablet 5 mg PO Q4H PRN PRN (Reason: Pain Score 6-10) 7 Days Qty: 42 0RF Xarelto 15 mg Tablet 15 mg PO DINNER 30 Days Qty: 30 0RF Tian (with collagen) 7-7-1.5 gram Powder In Packet 1 packet PO BIDCM 30 Days Qty: 60 0RF Continued folic acid 1 mg tablet 2 mg PO DAILY mirtazapine 15 mg tablet 15 mg PO QHS multivitamin [Daily Multi-Vitamin] Tablet 1 tab PO DAILY finasteride 1 mg tablet 5 mg PO DAILY spironolactone 25 mg tablet 25 mg PO DAILY Qty: 30 12RF tamsulosin 0.4 MG capsule 0.4 mg PO DAILY@1800 trazodone 100 mg tablet 100 mg PO QHS vitamin Q04-[id number] acid 2,500-400 mcg tablet,disintegrating 1 tab PO DAILY Simponi ARIA 12.5 mg/mL Solution 12.5 mg IV .[id number] Patient Comments: PT GOES TO GET INJECTION EVERY 8 WEEKS CAN NOT REMEMBER LAST SHOT NEXT DUE October gabapentin 300 mg capsule 300 mg PO TID PRN PRN (Reason: NERVE PAIN) Patient Comments: Take 1 (one) Capsule by mouth three times daily, as needed prednisone 10 mg tablet 10 mg PO DAILY PRN (Reason: RA FLARE UP) Rx Instructions: As instructed ergocalciferol (vitamin D2) [Vitamin D2] 1,250 mcg (50,000 unit) Capsule 1,250 mcg PO Q7D Qty: 0 0RF atorvastatin [Lipitor] 40 mg tablet 40 mg PO QHS Qty: 90 3RF amiodarone 200 mg tablet 200 mg PO DAILY Qty: 90 3RF Discontinued aspirin 81 mg tablet,delayed release (DR/EC) 81 mg PO DAILY Qty: 1 0RF furosemide [Lasix] 40 mg tablet 80 mg PO DAILY 90 Days Qty: 180 3RF polysaccharide iron complex [Ferrex 150] 150 mg iron capsule 150 mg PO DAILY 90 Days Qty: 90 3RF Xarelto 20 mg tablet 20 mg PO DAILY Qty: 1 0RF Rx Instructions: must administer with evening meal, start on 10/22/2022 cephalexin 500 mg capsule 500 mg PO Q6H Patient Comments: takes 1 capsule four times daily. Pt hasnt started meds yet polyethylene glycol 3350 17 gram Powder In Packet 17 g PO BID Qty: 0 0RF acetaminophen 500 mg Tablet 1,000 mg PO Q8 Qty: 0 0RF lidocaine 5 % Adhesive Patch,Medicated 1 patch topical DAILY Qty: 0 0RF Protocol: *Topical Application Instructions APPLICATION INSTRUCTIONS: lumbar spine in painful region oxycodone 5 mg Tablet 5 mg PO Q4H PRN PRN (Reason: Pain Score 6-10) 1 Days Qty: 6 0RF Tian (with collagen) 7-7-1.5 gram Powder In Packet 1 packet PO BIDCM Qty: 0 0RF sennosides-docusate sodium [Stool Softener-Stimulant Laxat] 8.6-50 mg Tablet 2 tab PO BID PRN PRN (Reason: Constipation) Qty: 0 0RF Referrals / Follow Up: Gloria Hazel MD [Primary Care Provider] - Disposition Disposition (needs filled in before D/C Order can be placed): Home Health Service 01/24/232051 <Electronically signed by Yogesh Lebron MD> Cosigner Signature (if applicable): CC: Dr. Gloria Hazel MD; Dr. Yogesh Lebron MD~ Signed ADDENDUM by Dr. Yogesh Lebron MD on 01/27/23 at 1356 Addendum Discharge to [facility] 01/27/2023, Home Health Care PT/OT/[place]. 01/27/23 1356<Electronically signed by Yogesh Lebron MD> Cosigner Signature (if applicable): cc: Dr. Gloria Hazel MD; Dr. Yogesh Lebron MD ~* Signed [facility] Work Phone: 1(662) 469-530908-14-2023 Progress note Author Yogesh [facility] January 09, 2023 11:06am Note Date/Time January 09, 2023 10 :09am [facility] Medical Records Department [facility] [place] [address] Progress Note - Pharmacy 01/09/23 1002 MR#: [id number] Acct: [id number] Name: BRYCE ANN Rep #:[id number] : 1940 82 From: Erica Balbuena PCP: Dr. Gloria Hazel MD Status:ADM IN Location: TCU [facility] Documented by User: Erica Balbuena 01/09/23 11:01 TCU RX Drug Regimen Review Subjective/Objective Subjective/Objective: Subjective: TCU Admission. 82 YOM presented to ER with a fall. Hospitalized for weakness, rhabdomyolysis, rib fractures, lumbar compression fractures, complicated by acute on chronic heart failure with preserved ejection fraction. Admitted to TCU with debility for strengthening and rehabilitation. Objective: Allergies No Known Allergies Allergy (Verified 01/04/23 18:20) Current Medications Generic Name Dose Route Start Last Admin Trade Name Freq PRN Reason Stop Dose Admin Acetaminophen 1,000 mg 01/06/23 22:00 01/09/23 06:21 Acetaminophen 500 Mg Tablet PO 1,000 mg Q8 PATRICE Administration Amiodarone HCl 200 mg 01/07/23 08:00 01/09/23 09:06 Amiodarone 200 Mg Tablet PO 200 mg 0800 PATRICE Administration Aspirin 81 mg 01/07/23 08:00 01/09/23 09:06 Aspirin E.C. 81 Mg Tablet PO 81 mg DAILYCM PATRICE Administration Atorvastatin Calcium 40 mg 01/06/23 22:00 01/08/23 22:30 Atorvastatin Calcium 40 Mg Tablet PO 40 mg QHS PATRICE Administration Cephalexin 500 mg 01/06/23 18:15 01/09/23 06:21 Cephalexin 500 Mg Capsule PO 01/12/23 23:59 500 mg Q6 PATRICE Administration Ergocalciferol 1.25 mg 01/12/23 06:00 Ergocalciferol 1.25 Mg (50, 000 Unit) Capsule PO Q7D PATRICE Finasteride 5 mg 01/07/23 06:00 01/09/23 06:24 Finasteride 5 Mg Tablet PO 5 mg DAILY PATRICE Administration Folic Acid 2 mg 01/07/23 08:00 01/09/23 09:06 Folic Acid 1 Mg Tablet PO 2 mg DAILYCM PATRICE Administration Furosemide 80 mg 01/07/23 06:00 01/09/23 06:20 Furosemide 40 Mg Tablet PO 80 mg DAILY PATRICE Administration Gabapentin 300 mg 01/06/23 18:12 01/08/23 18:11 Gabapentin 300 Mg Capsule PO 300 mg TID PRN PRN Administration NERVE PAIN L-Arginine/L-Glutamine/Calcium HMB 1 packet 01/07/23 08:00 01/09/23 09:09 Tian (Unflavored) Packet PO 1 packet BIDCM [facility] Administration Lidocaine 1 patch 01/07/23 06:00 01/09/23 09:03 Lidocaine 5% Patch TOPICAL 1 patch DAILY [facility] Administration Protocol Magnesium Citrate 300 ml 01/07/23 09:00 Magnesium Citrate 300 Ml PO DAILY PRN CONSTIPATION Mirtazapine 15 mg 01/06/23 22:00 01/08/23 22:30 Mirtazapine 15 Mg Tablet PO 15 mg QHS PATRICE Administration Multivitamins 1 tablet 01/07/23 08:00 01/09/23 09:07 Multivitamins,Therapeutic Tablet [facility] Administration Multivitamins 1 cap 01/07/23 08:00 01/09/23 09:06 Vitamin B Comp W-C Capsule PO [facility] Administration Oxycodone HCl 5 mg 01/06/23 18:12 01/08/23 22:29 Oxycodone 5 Mg Tablet PO 5 mg Q4H PRN PRN Administration Pain Score 6-10 Polyethylene Glycol 17 gm 01/07/23 06:00 01/09/23 06:24 Polyethylene Glycol 3350 17 Gm Packet PO Not Given BID [facility] Polysaccharide Iron Complex 150 mg 01/07/23 06:00 01/09/23 06:21 Iron Polysaccharide Complex 150 Mg Capsule PO 150 mg DAILY [facility] Administration Prednisone 10 mg 01/06/23 18:12 Prednisone 10 Mg Tablet PO DAILY PRN RA FLARE UP Rivaroxaban 20 mg 01/07/23 17:00 01/08/23 18:02 Rivaroxaban 20 Mg Tablet PO 20 mg DINNER [facility] Administration Senna/Docusate Sodium 2 tablet 01/07/23 18:00 01/09/23 06:21 Senna/Docusate Sodium 1 Tablet PO 1 tablet BID [facility] Administration Sodium Chloride 10 - 40 ml 01/06/23 20:01 0.9% Saline Lock 10 Ml Syringe IV UD PRN SALINE FLUSH Spironolactone 25 mg 01/07/23 08:00 01/09/23 09:07 Spironolactone 25 Mg Tablet PO 25 mg 0800 PATRICE Administration Tamsulosin HCl 0.4 mg 01/07/23 18:00 01/08/23 18:03 Tamsulosin Hcl 0.4 Mg Capsule PO 0.4 mg DAILY@1800 PATRICE Administration Trazodone HCl 100 mg 01/06/23 22:00 01/08/23 22:30 Trazodone 100 Mg Tablet PO 100 mg QHS PATRICE Administration Tuberculin PPD 0.1 ml 01/14/23 10:00 Tuberculin,Purif.Prot.Deriv. 50 Tu/Ml Vial ID 01/14/23 10:01 X1 ONE Problem List (Updated 01/07/23 @ 08:[address] Yogesh Lebron MD) Acute on chronic heart failure with preserved ejection fraction (Acute) Iron deficiency anemia (Acute) Neuropathic pain (Acute) Hyperlipidemia (Acute) Chronic pain (Chronic) Depression (Acute) Hypoxia (Acute) Debility (Acute) Rib fractures (Acute) Rhabdomyolysis (Acute) History of recent fall (Acute) Compression fracture of L5 vertebra (Acute) Compression fracture of L1 vertebra (Acute) Atrial fibrillation (Chronic) Vital Signs Temp Pulse Resp BP Pulse Ox O2 Del Method O2 Flow Rate 98.2 F 79 18 108/61 96 Nasal Cannula 2.5 01/08/23 16:00 01/09/23 09:16 01/08/23 16:00 01/09/23 09:16 01/08/23 16:00 01/08/23 16:00 01/09/23 08:12 Oxygen Flow Rate (L/min) 2.5 Oxygen Delivery Method Nasal Cannula Weight: 63.9 kg Sodium 139 mmol/L (136-145) 01/07/23 07:37 Potassium 3.6 mmol/L (3.5-5.1) 01/07/23 07:37 Chloride 103 mmol/L (98-107) 01/07/23 07:37 Carbon Dioxide 30.0 mmol/L (21.0-32.0) 01/07/23 07:37 Anion Gap 6 (5-15) 01/07/23 07:37 BUN 13 mg/dL (7-18) 01/07/23 07:37 Creatinine 0.50 mg/dL (0.70-1.30) L 01/07/23 07:37 Est GFR (MDRD) Af Amer 207 mL/min (>60) 01/07/23 07:37 Est GFR (MDRD) Non-Af 171 mL/min (>60) 01/07/23 07:37 BUN/Creatinine Ratio 26.2 RATIO (10-20) H 01/07/23 07:37 Glucose 84 mg/dL (74-106) 01/07/23 07:37 Assessment/Plan: 1. Pain: acetaminophen 1000mg PO Q8, oxycodone 5mg PO Q4H PRN pain 6-10 and lidocaine 5% patch topical daily. Resident has received 9 doses of oxycodone forpain scores of 6-10 in the back. Please continue to monitor for increased pain, PRN usage, constipation, respiratory depression and rash. 2. Bowel: Miralax 17gm PO BID, senna/docusate 2T PO BID and magnesium citrate 300mL PO daily PRN constipation. Resident has not used any PRN doses. Last documented bowel movement was today. Please continue to monitor for constipationand PRN usage. 3. S/P kyphoplasty: cephalexin 500mg PO Q6 thru 01/12/23. Please continue to monitor S/S of infection, renal function (CrCl is 52 mL/min using adjusted SCr of 0.8) and diarrhea. 4. Atrial fibrillation/HFpEF/CAD (per PMH): amiodarone 200mg PO daily, aspirin 81mg PO daily, rivaroxaban 20mg PO dinner, spironolactone 25mg PO daily and furosemide 80mg PO daily. Please continue to monitor for BP (last 108/61), HR (last 79), sodium (last 139mmol/L), potassium (last 3.6mmol/L), renal function, swelling, S/S of bleeding and hemoglobin (last 11.1g/dL). 5. Hyperlipidemia: atorvastatin 40mg PO QHS. Please consider ordering a lipid panel as the last panel was from 08/2021 if clinically appropriate. Please continue to monitor LFTs (last 01/05/23) and muscle pain. 6. BPH: finasteride 5mg PO daily and tamsulosin 0.4mg PO daily. Please continue to monitor BP, S/S of BPH and rash. 7. Iron deficiency anemia: Ferrex 150mg PO daily. Please continue to monitor hemoglobin, constipation and dark stools. 8. Rheumatoid arthritis: folic acid 2mg PO daily and prednisone 10mg PO daily PRN RA flare up. Please continue to monitor for S/S of RA. 9. Vitamin D deficiency/leg cramps/nutrition: ergocalciferol 1.25mg PO weekly, vitamin B complex 1 capsule daily and multivitamin 1T PO daily. Please continue to monitor vitamin D levels (last 01/05/23). Assessment/Plan for indications treated with psychotropic medications: 1. Depression/appetite loss: mirtazapine 15mg PO QHS. Please see physician note regarding GDR. Resident with unintentional weight loss per child psychiatrist note. Please continue to monitor for S/S of appetite loss, suicidal ideation (black box warning) and sodium. 2. Insomnia: trazodone 100mg PO QHS. Please see physician note regarding GDR. Please continue to monitor for suicidal ideation (black box warning), excessive drowsiness, dizziness and dry mouth. 3. Neuropathic pain: gabapentin 300mg PO TID PRN nerve pain. This medication is being used for nerve pain. GDR not appropriate. Resident has had 4 doses of gabapentin. Please continue to monitor for PRN usage, nerve pain, confusion, renal function and falls/fractures (BEERs medication). Medical chart and medication regimen reviewed. The following medication irregularities or issues were identified: *1. Atorvastatin 40mg PO QHS. Please consider ordering a lipid panel as the lastpanel was from 08/2021 if clinically appropriate. Thanks. Date Date of Note:: 01/09/23 Documented by User: Dr. Yogesh Lebron MD 01/09/23 11:06 TCU RX Drug Regimen Review Provider Comments Provider responsibility Provider Comments to Recommendations by Pharmacy: Agree 01/09/23 1101 <Electronically signed by Erica Balbuean> Erica Balbuena Cosigner Signature (if applicable): 01/09/23 1106 <Electronically signed by Yogesh Lebron MD> CC: ~ Signed [facility] Work Phone: [phone]) 384-367708-12-2023 History and physical note Author Yogesh Lebron [facility] January 07, 2023 8:59am Note Date/Time January 07, 2023 8: 34am [facility] Medical Records Department [facility] [place] [address] History & Physical Exam 01/07/23 0833 MR#: [id number] Acct: [id number] Name: BRYCE ANN Rep #:[id number] : 1940 82 From: Yogesh Lebron MD PCP: Dr. Gloria Hazel MD Status:ADM IN Location: [facility] HPI - General General Date of Admission: 01/06/23 Date of Service: 01/06/23 Chief Complaint: Here for rehabilitation. HPI Narrative 01/04/2023 BRYCE ANN, is a 82 Male who presents to [facility] Emergency Department with fall. Fell 1 week ago, right rib fractures, Dr. Rust performed kyphoplasty 1 day prior. Went home, walking in house, tangled feet, and fell on buttocks. Unable to get up, stayed on floor all night, daughter found him next day. No bowel movement, urinated all over himself, too weak to get around house. Lives alone, right flank bruise from fall, on Xarelto. Morphine, Zofran given, CPK 2433, Urinalysis negative, CT brain negative. CT abdomen/pelvis L2-L3 compression fracture. 01/04/2023 Admit to Hospital. Gentle IV fluids for rhabdomyolysis. PT/OT for debility. 01/05/2023 Feels okay, needs more therapy, agreeable to SNF. CK improved, stop IV fluids. Hemoglobin dropped 2 grams, monitor. Lasix IV for hypoxia secondary to fluid overload. Tylenol, gabapentin, oxycodone, lidocaine patch for pain. Bowel regimen for fecal retention. 01/05/2023 Keflex status post kyphoplasty. 01/06/2023 Admit to TCU with debility, here for rehabilitation, strengthening, prior to discharge home alone. [facility] Medical History (Updated 01/07/23 @ 08:[address] Yogesh Lebron MD) Anemia Atherosclerotic heart disease of [place] coronary artery without angina pectoris Atrial fibrillation BPH (benign prostatic hyperplasia) Chronic edema Coronary artery disease Former smoker GERD (gastroesophageal reflux disease) History of heart attack History of stress test Lumbar spinal stenosis PAT (paroxysmal atrial tachycardia) Rheumatoid arthritis SVT (supraventricular tachycardia) Wears glasses Home Medications tamsulosin 0.4 mg capsule 0.4 mg PO DAILY@1800 Retention 07/18/20 [History Last Taken 01/05/23] folic acid 1 mg tablet 2 mg PO DAILY supplement 09/28/20 [History Last Taken 01/06/23] finasteride 1 mg tablet 5 mg PO DAILY prostate 12/30/20 [History Last Taken 01/06/23] multivitamin (Daily Multi-Vitamin tablet) 1 tab PO DAILY Check with primary doctor 01/01/21 [History Last Taken 01/06/23] aspirin 81 mg tablet,delayed release 81 mg PO DAILY heart #1 TAB 01/10/22 [Rx Last Taken 01/06/23] mirtazapine 15 mg tablet 15 mg PO QHS sleep 01/10/22 [History Last Taken 01/05/23] vitamin B12 2,500 mcg-folic acid 400 mcg disintegrating tablet 1 tab PO DAILY Check with primary doctor 01/10/22 [History Last Taken 10/19/22] golimumab 12.5 mg/mL intravenous solution (Simponi ARIA) 12.5 mg IV .[id number] injection 05/31/22 [History Last Taken Unknown] atorvastatin 40 mg tablet (Lipitor) 40 mg PO QHS Cholesterol #90 tabs 10/07/22 [Rx Last Taken 01/05/23] gabapentin 300 mg capsule 300 mg PO TID PRN PRN NERVE PAIN 10/20/22 [History Last Taken 10/20/22] rivaroxaban 20 mg tablet (Xarelto) 20 mg PO DAILY anticoagulation #1 TAB 10/21/22 [Rx Last Taken 01/05/23] amiodarone 200 mg tablet 200 mg PO DAILY heart rate #90 tabs 10/28/22 [Rx Last Taken 01/06/23] furosemide 40 mg tablet (Lasix) 80 mg (2 x 40 mg) PO DAILY water pill 90 days #180 tabs 11/14/22 [Rx Last Taken 01/06/23] spironolactone 25 mg tablet 25 mg PO DAILY water pill #30 tabs 11/14/22 [Rx Last Taken 01/06/23] trazodone 100 mg tablet 100 mg PO QHS Check with primary doctor 11/14/22 [History Last Taken 01/05/23] polysaccharide iron complex 150 mg iron capsule (Ferrex) 150 mg PO DAILY supplement 90 days #90 caps 12/14/22 [Rx Last Taken 01/06/23] prednisone 10 mg tablet 10 mg PO DAILY PRN RA FLARE UP 01/04/23 [History Last Taken Unknown] cephalexin 500 mg capsule 500 mg PO Q6H s/p kyphoplasty 01/05/23 [History Last Taken Unknown] acetaminophen 500 mg tablet 1,000 mg (2 x 500 mg) PO Q8 pain #0 tabs 01/06/23 [Rx Last Taken 01/06/23] arginine 7 gram-glutam 7 gram-CaHMB 1.5 ndii-jjvgt-di-min oral pwd pkt (Tian (with collagen)) 1 packet PO BIDCM supplement #0 ea 01/06/23 [Rx Last Taken 01/06/23] ergocalciferol (vitamin D2) 1,250 mcg (50,000 unit) capsule (Vitamin D2) 1,250 mcg PO Q7D supplememt #0 caps 01/06/23 [Rx Last Taken 01/05/23] lidocaine 5 % topical patch 1 patch topical DAILY pain #0 ea 01/06/23 [Rx Last Taken 01/06/23] oxycodone 5 mg tablet 5 mg PO Q4H PRN PRN Pain Score 6-10 1 day #6 tabs 01/06/23[Rx Last Taken 01/06/23] polyethylene glycol 3350 17 gram oral powder packet 17 g PO BID constipation #0 ea 01/06/23 [Rx Last Taken 01/06/23] sennosides 8.6 mg-docusate sodium 50 mg tablet (Stool Softener-Stimulant Laxative) 2 tab PO BID PRN PRN Constipation #0 tabs 01/06/23 [Rx Last Taken Unknown] Allergy/AdvReac Type Severity Reaction Status Date / Time No Known Allergies Allergy Verified 01/04/23 18:20 Family History Father CVA (cerebral vascular accident) Brother CAD (coronary artery disease) CABG X 3 Mother CVA (cerebral vascular accident) Grandfather Cancer prostate Surgical History H/O colonoscopy H/O umbilical hernia repair History of cardiac catheterization History of coronary artery stent placement (03/11/21) History of coronary artery stent placement History of lumbar surgery Hx of colectomy Hx of laminectomy Hx of transurethral resection of prostate S/P appendectomy S/P cataract surgery S/P hemorrhoidectomy S/P inguinal hernia repair S/P laparoscopic cholecystectomy S/P left colectomy S/P rotator cuff repair S/P vasectomy Social History household members: none Smoking Status: Former smoker how long ago did patient quit smokin years ago alcohol intake: never substance use type: does not use diet: low salt caffeine: Yes Type: coffee Number of servings: 4 ROS Constitutional Constitutional: Denies chills, fever(s) or weight gain ENT HEENT: Denies headache(s), nasal congestion or nasal discharge Cardiovascular Cardiovascular: Denies chest pain or palpitations Respiratory/Chest Respiratory/Chest: Denies cough, excessive phlegm production or shortness of breath with exertion Gastrointestinal Gastrointestinal: Denies abdominal pain, nausea or vomiting Genitourinary Genitourinary: Denies dysuria Musculoskeletal Musculoskeletal: Denies joint pain or joint swelling Integumentary Integumentary: Denies rash or wounds Neurologic Neurologic: Denies focal weakness, numbness or tingling Psychiatric Psychiatric: Denies anxiety, auditory hallucinations, depression, homicidal ideation or suicidal ideation Vital Signs Vital Signs Vital Signs: 01/06/23 18:55 01/06/23 18:55 Temperature 98.3 F Temperature Source Temporal Pulse Rate 76 Pulse Rhythm Irregular Pulse Strength Normal (2+) Respiratory Rate 18 Respiratory Effort Normal Non-Labored Respiratory Depth Normal Respiratory Pattern Normal Blood Pressure 133/64 H Blood Pressure Mean 87 Blood Pressure Source Monitor Blood Pressure Position Semi-Fowlers Blood Pressure Location Right Arm Pulse Ox 94 94 Oxygen Delivery Method Nasal Cannula Nasal Cannula Oxygen Flow Rate (L/min) 2 2 Physical Exam Const alert General Appearance: cooperative HEENT normocephalic Eyes PERRL and EOMs intact bilaterally Neck supple, no JVD and no carotid bruits Resp normal respiratory effort, normal air movement and clear to auscultation bilaterally Cardio regular rate and regular rhythm GI normal to inspection, nondistended, normoactive bowel sounds, non-tender and non-distended Extremity normal capillary refill General Extremity: Negative for edema Skin no rashes or lesions noted General Skin Exam: no breakdown Psych affect normal Appearance: appropriate Results Lab / Micro Data 01/07/23 07:37 01/07/23 07:37 Labs: Laboratory Results - last 24 hr 01/07/23 07:37: WBC 5.9, RBC 3.47 L, Hgb 11.1 L, Hct 34.5 L, MCV 99.4 H, MCH 32.0, MCHC 32.2, RDW Std Deviation 77.1 H, RDW Coeff of Jaciel 21.5 H, Plt Count 171, MPV 9.3, Immature Gran % (Auto) 0.200, Neut % (Auto) 68.1, Lymph % (Auto) 16.2 L, [place] % (Auto) 11.2 H, Eos % (Auto) 3.6, Baso % (Auto) 0.7, Absolute Neuts (auto) 4.0, Absolute Lymphs (auto) 0.95, Nucleated RBC % 0, Sodium 139, Potassium 3.6, Chloride 103, Carbon Dioxide 30.0, Anion Gap 6, BUN 13, Creatinine 0.50 L, Est GFR (MDRD) Af Amer 207, Est GFR (MDRD) Non-Af 171, BUN/Creatinine Ratio 26.2 H, Glucose 84, Calcium 8.2 L Assessment & Plan Assessment/Plan (1) Debility: (2) History of recent fall: (3) Rib fractures: (4) Compression fracture of L1 vertebra: (5) Compression fracture of L5 vertebra: (6) Rhabdomyolysis: (7) Atrial fibrillation: QUALIFIERS: Atrial fibrillation type: paroxysmal Qualified Code(s): I48.0 - Paroxysmal atrial fibrillation (8) Hypoxia: (9) Depression: (10) Chronic pain: (11) Hyperlipidemia: (12) Neuropathic pain: (13) Insomnia: (14) Iron deficiency anemia: (15) Acute on chronic heart failure with preserved ejection fraction: PLAN: Plan 82 year old male with below past medical history hospitalized for weakness, rhabdomyolysis, rib fractures, lumbar compression fractures, complicated by acute on chronic heart failure with preserved ejection fraction, admitted to [facility], here for rehabilitation, strengthening, prior to discharge home alone. * Debility - PT/OT. * Pain - Tylenol 1000mg q8, Oxycodone 5mg q4h prn pain (6-10), Lidoderm topical daily. * Bowel - Miralax 17gm bid, senna/colace 2 tablets bid, Magnesium citrate 300ml po daily prn. * Adult immunization - Administer pneumonia vaccine, covid19 vaccine, flu vaccine as appropriate. * DVT prophylaxis - on Xarelto. * Atrial fibrillation - Amiodarone 200mg daily, Xarelto 20mg daily. * Hyperlipidemia - Atorvastatin 40mg qhs. * s/p kyphoplasty - Keflex 500mg q6h thru 01/12/2023. * Vitamin D deficiency - D 1.25mg per week. * BPH - Finasteride 5mg daily, Tamsulosin 0.4mg daily. * Rheumatoid Arthritis - Hold Simponi Aria, on Folic acid 2mg daily, prednisone 10mg daily prn. * Chronic heart failure with preserved ejection fraction - Aldactone 25mg daily, Furosemide 80mg daily. * Neuropathic pain - Gabapentin 300mg tid prn. * Iron deficiency anemia - Ferrex 150mg daily. * Nutrition - MVI daily, Tian 1 packet bid. 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 * Insomnia - Trazodone 100mg qhs, stable chronic long-term use, GDR not recommended. * Leg cramps - Vitamin B complex 1 capsule daily. 01/07/23 0859 <Electronically signed by Yogesh Lebron MD> Cosigner Signature (if applicable): CC: Dr. Gloria Hazel MD; Dr. Yogesh Lebron MD~ Signed [facility] Work Phone: [phone]) 244-440508-09-2023 Discharge summary Author Samm Womack [facility] January 04, 2023 10:15pm Note Date/Time January 04, 2023 7:4 5pm [facility] Medical Records Department [address] [place] [address] Emergency Department Summary 01/04/23 MR#: [id number] Acct: [id number] Name: MARISSABRYCE B Rep #:[id number] : 1940 82 From: Samm Woamck DO PCP: Dr. Gloria Hazel MD Status:ADM IN Location: [address] History of Present Illness Chief Complaint: Fall Narrative Narrative: 82-year-old male presenting after a fall. He states he fell about a week ago and sustained some rib fractures on the right. He had follow-up yesterday with Dr. Rust for a already scheduled kyphoplasty and had this performed. He went home and he was walking in his house and states he got his feet tangled up and he thought he was going to fall and tried to sit down and ended up landing on his buttocks. He states he was unable to get up off of the floor and stayed there all night since last evening. He states that he has not a bowel movement but urinated all over himself all night. He denies head injury but he is on Xarelto. No blurred vision, nausea, vomiting. He denies chest pain or palpitations. He states he is just too weak to get around at home and he lives alone. He has some bruising he notes to the right flank from falling. [facility] Medical History (Updated 01/04/23 @ 22:[address] Mi Gregory MD) Anemia Atherosclerotic heart disease of [place] coronary artery without angina pectoris Atrial fibrillation BPH (benign prostatic hyperplasia) Chronic edema Coronary artery disease Former smoker GERD (gastroesophageal reflux disease) History of heart attack History of stress test Lumbar spinal stenosis PAT (paroxysmal atrial tachycardia) Rheumatoid arthritis SVT (supraventricular tachycardia) Wears glasses Home Medications tamsulosin 0.4 mg capsule 0.4 mg PO DAILY@1800 Retention 07/18/20 [History Last Taken 10/20/22] folic acid 1 mg tablet 2 mg PO DAILY 09/28/20 [History Last Taken 10/20/22] finasteride 1 mg tablet 5 mg PO DAILY 12/30/20 [History Last Taken 10/20/22] multivitamin (Daily Multi-Vitamin tablet) 1 tab PO DAILY Check with primary doctor 01/01/21 [History Last Taken 10/20/22] aspirin 81 mg tablet,delayed release 81 mg PO DAILY #1 TAB 01/10/22 [Rx Last Taken 10/20/22] mirtazapine 15 mg tablet 15 mg PO QHS 01/10/22 [History Last Taken 10/19/22] vitamin B12 2,500 mcg-folic acid 400 mcg disintegrating tablet 1 tab PO DAILY Check with primary doctor 01/10/22 [History Last Taken 10/19/22] golimumab 12.5 mg/mL intravenous solution (Simponi ARIA) 12.5 mg IV .[id number] 05/31/22 [History Last Taken Unknown] buprenorphine 10 mcg/hour weekly transdermal patch 1 patch transdermal QWEEK pain 09/20/22 [History Last Taken 10/14/22] atorvastatin 40 mg tablet (Lipitor) 40 mg PO QHS Cholesterol #90 tabs 10/07/22 [Rx Last Taken 10/19/22] gabapentin 300 mg capsule 300 mg PO TID PRN PRN NERVE PAIN 10/20/22 [History Last Taken 10/20/22] rivaroxaban 20 mg tablet (Xarelto) 20 mg PO DAILY anticoagulation #1 TAB 10/21/22 [Rx Last Taken 10/19/22] amiodarone 200 mg tablet 200 mg PO DAILY heart rate #90 tabs 10/28/22 [Rx Last Taken Unknown] furosemide 40 mg tablet (Lasix) 80 mg (2 x 40 mg) PO DAILY 90 days #180 tabs 11/14/22 [Rx Last Taken Unknown] spironolactone 25 mg tablet 25 mg PO DAILY #30 tabs 11/14/22 [Rx Last Taken Unknown] trazodone 100 mg tablet 100 mg PO QHS Check with primary doctor 11/14/22 [History Last Taken Unknown] hydrocodone-acetaminophen 5-325mg 5mg-325mg 1 tab PO Q6H 11/25/22 [History Last Taken Unknown] polysaccharide iron complex 150 mg iron capsule (Ferrex) 150 mg PO DAILY 90 days#90 caps 12/14/22 [Rx Last Taken Unknown] prednisone 10 mg tablet 10 mg PO DAILY PRN RA FLARE UP 01/04/23 [History Last Taken Unknown] Allergy/AdvReac Type Severity Reaction Status Date / Time No Known Allergies Allergy Verified 01/04/23 18:20 Family History Father CVA (cerebral vascular accident) Brother CAD (coronary artery disease) CABG X 3 Mother CVA (cerebral vascular accident) Grandfather Cancer prostate Surgical History H/O colonoscopy H/O umbilical hernia repair History of cardiac catheterization History of coronary artery stent placement (08/06/20) History of coronary artery stent placement History of lumbar surgery Hx of colectomy Hx of laminectomy Hx of transurethral resection of prostate S/P appendectomy S/P cataract surgery S/P hemorrhoidectomy S/P inguinal hernia repair S/P laparoscopic cholecystectomy S/P left colectomy S/P rotator cuff repair S/P vasectomy Social History household members: none Smoking Status: Former smoker how long ago did patient quit smokin years ago alcohol intake: never substance use type: does not use diet: low salt caffeine: Yes Type: coffee Number of servings: 4 ROS ROS ED ROS Narrative Generalized weakness Constitutional Constitutional ED: Denies chills, fever(s) or sweats Eyes Eyes: Denies blurry vision or change in vision ENT ENT ED: Denies ear pain or sore throat Cardiovascular Cardiovascular: Denies chest pain, palpitations or racing heartbeat Respiratory/Chest Respiratory/Chest: Denies cough, dyspnea or sputum Gastrointestinal Gastrointestinal: Denies abdominal pain, constipation, diarrhea, nausea or vomiting Genitourinary Genitourinary ED: Denies dysuria, hematuria or urinary frequency Musculoskeletal Musculoskeletal: Reports back pain; Denies arthralgias, myalgias or neck pain Integumentary Reports other Details: Bruising to the right flank ; Denies abscess, Abrasions or rash Neurologic Neurologic: Denies headache(s), paresthesias or weakness Psychiatric Psychiatric: Denies anxiety, depression, suicidal ideation or suicidal thoughts Endocrine Endocrinology: Denies polydipsia or polyuria EXAM Physical Exam Const Vital Signs: 01/04/23 18:20 01/04/23 18:20 01/04/23 18:39 Temperature 98.9 F Temperature Source Oral Pulse Rate 81 Respiratory Rate 16 Respiratory Effort Normal Non-Labored Blood Pressure 134/69 H Blood Pressure Mean 90 Pulse Ox 95 Oxygen Delivery Method Room Air Oxygen Flow Rate (L/min) 01/04/23 19:30 01/04/23 19:44 01/04/23 20:19 Temperature Temperature Source Pulse Rate 74 81 Respiratory Rate 16 19 H Respiratory Effort Blood Pressure 125/64 H 125/59 H Blood Pressure Mean 84 81 Pulse Ox 78 99 100 Oxygen Delivery Method Room Air Nasal Cannula Nasal Cannula Oxygen Flow Rate (L/min) 2 2 01/04/23 19:33 Temperature Temperature Source Pulse Rate Respiratory Rate Respiratory Effort Blood Pressure Blood Pressure Mean Pulse Ox 78 Oxygen Delivery Method Room Air Oxygen Flow Rate (L/min) Positive well nourished HEENT Reports dry mucous membranes Negative for trauma Mouth ED: Yes dry mucous membranes Mouth: dry mucous membranes Eyes PERRL and EOMs intact bilaterally Neck no lymphadenopathy Resp normal respiratory effort and clear to auscultation bilaterally Auscultation: Negative for rales, rhonchi or wheezes Cardio regular rate and regular rhythm GI GI Narrative: To palpation over the right flank and there is some bruising noted here. Neuro oriented x3 and CN's II-XII intact bilaterally Sensorium / Orientation: alert Motor Exam: general weakness Psych mental status grossly normal MDM MDM MDM Narrative Medical decision making narrative: Patient presenting after fall which she describes as mechanical. He laid on thefloor all night. He denies chest pain or shortness of breath. He denies abdominal pain. He is having back pain which is not new. He was unable to takeany of his medicines last night or this morning. His daughter found him later today. Differential includes dehydration, electrolyte abnormalities, anemia, rhabdomyolysis, UTI, intracranial hemorrhage, compression fracture. Rib fractures, pneumothorax. CBC was obtained to assess white blood cell count, hemoglobin, platelets, differential. CMP to assess liver function, renal function, electrolytes, glucose. CPK was to assess for rhabdomyolysis. High-sensitivity troponin EKG to assess for ischemia, dysrhythmia. Urinalysis to assess for UTI chest x-ray to rule out pneumonia versus pneumothorax. CT abdomen pelvis was obtained without contrast to assess for compression fracturesand injury due to bruising on the right side of his abdomen. He was given morphine and Zofran. CBC shows normal white blood cell count. Hemoglobin hematocrit are stable. Platelets are normal. Renal function electrolytes are within normal limits. Patient CPK was elevated at 2433. Alkaline phosphatase elevated at 193 and the rest of his liver enzymes are normal. Urinalysis negative for infection. CT brain was negative for acute findings. CT of the abdomen pelvis showed wedging at L2- L3 superior endplates of uncertain chronicity. Otherwise it showed previous compression fractures. Impression 1. History of compression fracture 2. Rhabdomyolysis 3. Mechanical fall 4. Debility Lab Data Attestation: I reviewed the patient's lab results. Labs: Laboratory Results - last 24 hr 01/04/23 01/04/23 19:20 20:10 WBC 8.9 RBC 4.17 L Hgb 12.9 L Hct 39.6 L MCV 95.0 H MCH 30.9 MCHC 32.6 RDW Std Deviation 75.3 H RDW Coeff of Jaciel 21.7 H Plt Count 176 MPV 8.7 Immature Gran % (Auto) 0.400 Neut % (Auto) 78.7 H Lymph % (Auto) 9.4 L [place] % (Auto) 11.0 H Eos % (Auto) 0.3 Baso % (Auto) 0.2 Absolute Neuts (auto) 7.0 Absolute Lymphs (auto) 0.84 Nucleated RBC % 0 Differential Comment SCANNED Sodium 137 Potassium 3.7 Chloride 100 Carbon Dioxide 31.0 Anion Gap 6 BUN 8 Creatinine 0.84 Est GFR (MDRD) Af Amer 112 Est GFR (MDRD) Non-Af 93 BUN/Creatinine Ratio 9.5 L Glucose 112 H Calcium 8.6 Total Bilirubin 0.90 AST 101 H ALT 49 Alkaline Phosphatase 193 H Total Creatine Kinase 2433 H Troponin I High Sens 55 Total Protein 6.1 L Albumin 3.0 L Globulin 3.1 Albumin/Globulin Ratio 1.0 Urine Color Yellow Urine Clarity Clear Urine pH 8.0 Ur Specific [place] 1.010 Urine Protein 30 H Urine Glucose (UA) Normal Urine Ketones 15 H Urine Occult Blood Negative Urine Nitrite Negative Urine Bilirubin Negative Urine Urobilinogen Normal Ur Leukocyte Esterase Negative Urine RBC 0 SEEN Urine WBC 0 SEEN Ur Squamous Epith Cells 0 SEEN Urine Bacteria 0 SEEN Urine Mucus 0 SEEN Radiography Diagnostic Testing: Clinical Impression(s) from Imaging Studies Abdomen/Pelvis CT 01/04/23 19:11 IMPRESSION: Left nephrolithiasis without evidence for renal obstruction or ureteral calculus. Nonspecific ileus with diffuse fecal retention in colon and rectal impaction. Old compression fractures of L1 and L5 status post kyphoplasty.. Mild wedging of superior endplates of L2 and L3 of uncertain chronicity. If concern for acute fracture MRI recommended Other findings as above Electronically Signed: Ra Polo MD at 20:47 EDT , Brain CT 01/04/23 19:42 IMPRESSION: Mild atrophy and advanced periventricular white matter ischemic change. No acute bleed. If concern for acute infarct MRI recommended Electronically Signed: Ra Polo MD at 20:30 EDT , Chest X-Ray 01/04/23 19:50 IMPRESSION: Mild subsegmental atelectasis in the left lower lobe and possible tiny pleural effusion Electronically Signed: Ra Polo MD at 20:59 EDT , Discharge Plan Triage Chief Complaint: Fall ED Provider: Samm Womack Dx/Rx/DC Orders Primary Care Provider: Gloria Hazel What to do if you have Problems For any increased pain, shortness of breath, bleeding, nausea or vomiting, chestpain, or any unexpected problems, contact your Primary Care Provider. Call [facility] ([phone]) or report to the closest Emergency Room. Call 911 if necessary. 01/04/232214 <Electronically signed by aSmm Womack DO> Cosigner Signature (if applicable): CC: Dr. Gloria Hazel MD ~ Signed [facility] Work Phone: 1([phone]) 602-676208-01-2023 Instructions* Patient Instructions* María Botello APRN.CNP - 12/27/2022 7:08 PM EDT Encourage deep breaths Tylenol (generic acetaminophen) 500 mg-2 tabs every 8 hrs as needed for pain Ice Heat Follow up in one week with Dr. Hazel * Seek medical care immediately, call 911, go to ER if you have chest pain, difficulty breathing, shortness of breath, inability to swallow. [facility] History of Present illness Narrative* Cami Nick RT(R) - 12/27/2022 6:20 PM EDT Radiology Service Progress Note PATIENT NAME: Bryce Ann DATE OF SERVICE: December 27, 2022 TIME: 6:22 PM PATIENT IDENTITY VERIFICATION COMPLETED USING TWO (2) IDENTIFIERS: Name and Date of confirmedby patient verbally. FALL SCREENING: Has the patient had 2 falls in the last year or 1 fall with injury or currently using an Ambulatory Assistive Device (Walker, Cane, Wheelchair, Crutches, etc.)? No PATIENT GENDER DATA: Male PATIENT RELEVANT IMPLANT DATA REVIEWED: Yes RADIOLOGY DEPARTMENT: General X-ray: Exam(s) Completed: Rib X-Ray: Right PERIPHERAL IV DATA: Not applicable SIGNED BY: RT Darline(R) December 27, 2022 6:22 PM documented in this [facility] History of Present illness Narrative* María Botello APRN.CUSTOM PROTECTION OFFICER - 12/27/2022 6:16 PM EDT Images from the original note were not included. Subjective The history is provided by the patient and a relative. No clubhouse attendant was used. HPI Bryce Ann is a 82 year old male who presents today for CC of right rib pain that started onFriday after he fell, landing on right side. He has used tylenol as needed. He is on xarelto. H/o osteoporosis BP 102/66 Pulse 72 Temp 36.6 C (97.8 F) Resp 16 SpO2 95% Social History Tobacco Use Smoking status: Former Smokeless tobacco: Never No past medical history on file. I have confirmed and edited as necessary, the [facility] Review of Systems Constitutional: Negative [...] for higher level of care were discussed indetail warranting prompt ER evaluation. María Botello APRN.CUSTOM PROTECTION OFFICER documented in this encounter[facility]04[facility]30-[address] Vega [facility] September 25, 2022 2:20pm Note Date/Time September 25, 2022 2:1 9pm [facility] Medical Records Department [address] [place] [address] Instructions for Home/Discharge Instructions 09/25/22 1407 MR#: [id number] Acct: [id number] Name: BRYCE ANN Rep #:[id number] : 1940 81 From: Aisha Vega MD PCP: Dr. Gloria Hazel MD Status:ADM IN Discharge Instructions Diet Discharge Diet: - (DASH diet, 3000 mg sodium restriction, 2 L fluid restriction) Activity Discharge Activity: Return to Normal Activity Return to work on:: 09/28/22 Follow Up Care Test Results: Test results from this visit will be discussed in further detail at your follow- up appointment, if applicable. Discharge Plan Admission Admit Date/Time: 09/23/22 10:24 Primary Reason for Your Visit: Let him Attending Provider: Aisha Vega Primary Care Provider: Gloria Hazel Instructions Patient Instructions: Heart Failure Dc Additional Instructions / Restrictions: DISCHARGE INSTRUCTIONS PLEASE READ *Please take this with you to your next doctors appointment* -You were here with fluid overload and required IV Lasix. -Please resume 40 mg of Lasix in the morning as well as limit your sodium intaketo less than 3 g/day and fluids to 2 L a day as much as possible. This combination now that you have been diuresed (given lasix through the IV with adequate water urinated out) will help keep you at your current weight/fluid status. -On the day of discharge you are 148.8 pounds by our scale. Would recommend youweigh yourself tomorrow morning and write down this weight and use this as your current baseline weight. Weigh yourself every day. A sudden weight gain can meanyou are retaining fluid. Weigh yourself at the same time of day and in the same kind of clothes. Ideally, weigh yourself first thing in the morning after you empty your bladder, but before you eat breakfast. -Please call your physician if your weight goes up by more than 2 pounds in 1 day or 5 pounds in 1 week. This can be a sign that you are retaining more fluid than you should be. Clues to weight gain include checking your ankles for swelling, or noticing you are short of breath when you lie down -Strongly advise to wear compression stockings as we discussed -Please follow-up with your cardiology office upon discharge, please call Mondayto schedule hospital follow-up appointment for your fluid overload and somewhat tight aortic valve which may just need to be monitored with routine echocardiograms of your heart -It is advised against taking cyclobenzaprine with history of fluid overload, would advise discontinuing this -Continue your other home medications as previously prescribed -You have a soft tissue density on your right shoulder, this can be further monitored on an outpatient basis. -You have a slight widening of your thoracic aorta but can be monitored routinely on an outpatient basis through primary care physician's office. -Return to work on 09/28/2022 Here are tips: Limit canned, dried, packaged, and fast foods. Don't add salt to your food at the table. Season foods with herbs instead of salt when you cook. When you eat out, ask that the ex chef not add any salt to your dish. Don't eat fried or greasy foods. Be careful of bottled beverages. They can contain a lot of salt -Call 911 right away if you have: -Severe shortness of breath, such that you can't catch your breath even while resting -Severe chest pain that does not resolve with rest or nitroglycerin -Sproul, foamy mucus with cough and shortness of breath -An ongoing rapid or irregular heartbeat -Passing out or fainting -Stroke symptoms such as sudden numbness or weakness on one side of your face, arm, or leg or sudden confusion, trouble speaking or vision changes -Please call your primary care provider's office upon discharge to schedule a hospital follow up within 1 week. -For any concerning signs or symptoms please call 911 or proceed to the nearest emergency department Discharge Orders/Prescriptions Prescriptions: Continued folic acid 1 mg tablet 2 mg PO DAILY (DME) Blood pressue cuff See Rx Instructions .Route .MEDSUPPLY Qty: 1 0RF Rx Instructions: As directed mirtazapine 15 mg tablet 15 mg PO QHS multivitamin [Daily Multi-Vitamin] Tablet 1 tab PO DAILY finasteride 1 mg tablet 5 mg PO DAILY prednisone 5 mg tablet 10 mg PO PRN PRN (Reason: Spasms) miscellaneous medical supply [facility] 1 ea miscellaneous DIRECTED Qty: 1 0RF Rx Instructions: handicap placshazia, for life. aspirin 81 mg tablet,delayed release (DR/EC) 81 mg PO DAILY Qty: 1 0RF polysaccharide iron complex [Ferrex 150] 150 mg iron capsule 150 mg PO DAILY 90 Days Qty: 90 0RF tamsulosin 0.4 MG capsule 0.4 mg PO DAILY@1800 trazodone 100 MG tablet 150 mg PO QHS vitamin O96-ticct acid 2,500-400 mcg tablet,disintegrating 1 tab PO DAILY tramadol 50 mg Tablet 50 mg PO TID PRN (Reason: Pain) gabapentin 100 mg Tablet 300 mg PO DAILY Simponi ARIA 12.5 mg/mL Solution IV furosemide [Lasix] 40 mg Tablet 40 mg PO DAILY buprenorphine 10 mcg/hour Patch Weekly 1 patch TRANSDERMAL QWEEK Rx Instructions: change on Xarelto 20 mg tablet 20 mg PO DAILY Rx Instructions: must administer with evening meal atorvastatin [Lipitor] 40 mg tablet 40 mg PO QHS Qty: 90 3RF amiodarone 200 mg tablet 200 mg PO DAILY Qty: 90 3RF Discontinued cyclobenzaprine 10 mg Tablet 10 mg PO DAILY PRN (Reason: muscle spasms) Referrals / Follow Up: Gloria Hazel MD [Primary Care Provider] - Within 1 Week Salvatore Leonardo NP, PREVENTION COORDINATOR-C [Med Staff - [facility]] - See Referral Note (Pleasefollow-up with your cardiology office upon discharge, please call Monday to schedule hospital follow-up appointment.) Disposition Disposition (needs filled in before D/C Order can be placed): Home, Self Care 09/25/22 1420<Electronically signed by Aisha Vega MD>Aisha Vega MD CC: Dr. Gloria Hazel MD ~ Signed [facility] Work Phone: [phone]) 814-204504-29-[address] Vega [facility] September 24, 2022 10:47am Note Date/Time September 24, 2022 10: 20am [facility] Medical Records Department [address] [place] [address] Progress Note - Hospitalist 09/24/22 1017 MR#: [id number] Acct: [id number] Name: BRYCE ANN Rep #:[id number] : 1940 81 From: Aisha Vega MD PCP: Dr. Gloria Hazel MD Status:ADM IN Location: [place] [address] Reason for Visit Reason for Visit: Diagnoses Hypoxemia (09/23/22) Other specified abnormalities of plasma proteins (09/23/22) Other specified abnormal findings of blood chemistry (09/23/22) Subjective Subjective Somewhat irritable this morning. Does report his swelling and breathing are improving. Denies chest pain Objective Data Objective Data Vital Signs: Vital Signs Temp Pulse Resp BP Pulse Ox O2 Del Method O2 Flow Rate 98.9 F 72 18 148/69 H 95 Room Air 2 09/24/22 03:00 09/24/22 03:00 09/24/22 03:00 09/24/22 03:00 09/24/22 03:00 09/24/22 07:59 09/24/22 04:01 Oxygen Flow Rate (L/min) 2 Oxygen Delivery Method Room Air Weight: 68.3 kg Body Mass Index (BMI) 27.5 Intake & Output: Intake and Output for Last 24 Hours 09/22/22 09/23/22 09/24/22 23:59 23:59 23:59 Intake Total 650 / 950 500 / 500 Output Total 1200 / 1200 Balance -550 / -250 500 / 500 Lab / Micro Data Result Diagrams: 09/24/22 08:25 09/24/22 08:25 Labs: Laboratory Results - last 24 hr 09/23/22 11:15: Troponin I High Sens 164 H* 09/24/22 08:25: WBC 7.4, RBC 3.05 L, Hgb 8.5 L, Hct 27.9 L, MCV 91.5, MCH 27.9, MCHC 30.5 L, RDW Std Deviation 55.3 H, RDW Coeff of Jaciel 16.9 H, Plt Count 313, MPV 9.2, Immature Gran % (Auto) 0.400, Neut % (Auto) 73.7 H, Lymph % (Auto) 12.3L, [place] % (Auto) 10.9 H, Eos % (Auto) 2.2, Baso % (Auto) 0.5, Absolute Neuts (auto) 5.5, Absolute Lymphs (auto) 0.91, Nucleated RBC % 0 09/24/22 08:25: Sodium 140, Potassium 3.4 L, Chloride 109 H, Carbon Dioxide 29.0, Anion Gap 2 L, BUN 15, Creatinine 0.76, Estim Creat Clear Calc 46.26, Est GFR (MDRD) Af Amer 126, Est GFR (MDRD) Non-Af 104, BUN/Creatinine Ratio 19.6, Glucose 100, Calcium 8.4 L, TSH 2.20 Micro: Microbiology 09/23/22 11:35 Mucosa - Nasopharyngeal Respiratory Panel (PCR) - Final 09/23/22 12:10 Nasal Secretion SARS-CoV-2 & FLU Antigen (Rapid) - Final ABG Data ABG results: ABG 09/23/22 11:53 Specimen Type ART Sample Site R Radial pH 7.42 Bicarbonate Actual 30.6 H Total CO2 32 Base Excess 6 H O2 Saturation 96 ABG pCO2 47.0 H ABG pO2 82 Rayray Test Positive O2 Delivery Device Cannula Liter Flow 3.0 Radiography Diagnostic Testing: Radiology Impression Chest CT 09/23/22 10:45 IMPRESSION: Multiple areas of patchy airspace disease in both lungs as described. Follow-up recommended. Minimal left pleural effusion. Electronically Signed: Nicko Yoon MD at 11:54 EDT , Shoulder X-Ray 09/23/22 10:55 IMPRESSION: Degenerative changes. Calcific tendinitis. Evidence of prior rotator cuff repair. 2 cm x 1.4 cm soft tissue density overlying the acromioclavicular joint. Electronically Signed: Nicko Yono MD at 11:55 EDT , Physical Exam Narrative General: Alert, oriented HEENT: Atraumatic, normocephalic Eyes: Anicteric, normal conjunctiva, extraocular movements grossly intact Neck: Supple Respiratory: No overt crackles or wheezes appreciated, normal respiratory effort Cardiovascular: Regular rate and rhythm GI: Soft, nontender, nondistended Extremities: 2-3+ bilateral lower extremity edema, wrinkles forming, improved Musculoskeletal: Moving all extremities Neuro: No overt focal neurological deficits Skin: Right lower extremity remains wrapped Psych: Irritable Assessment & Plan Assessment/Plan (1) Hypoxia: (2) Elevated troponin: (3) Elevated brain natriuretic peptide (BNP) level: PLAN: Plan #Acute hypoxia secondary to acute on chronic heart failure with preserved ejection fraction -88% on room air in the ED which improved with nasal cannula -Suspect this is multifactorial, does appear to have some overload suggesting cor pulmonale but no overt edema seen on chest x-ray. Is known to have heart failure with preserved ejection fraction. -Chest x-ray suggestive of mild scarring bilaterally but stable exam, suspect there is an additional etiology in addition to fluid overload -BNP 243 with no previous for comparison -Last echo 01/27/2022 with an EF of 55%, mild to moderate mitral valve insufficiency, RVSP of 35, stage II diastolic dysfunction -We will repeat echocardiogram -Does take Lasix 40 mg daily, will start IV dosing -I's and O's, daily weights -We will check CT chest to further characterize -We will check COVID and flu -May need to follow-up with a poiser on discharge -Very low suspicion for PE I feel there is more likely other etiologies, additionally per documentation he is on Xarelto, will need to confirm this -Reports remote history of smoking, quit 52 years ago. Does not have a poiser -No wheezing, do not suspect COPD, can add albuterol as needed -09/24: Improved with IV Lasix, will continue IV Lasix today and daily weights, is down in weight and legs have wrinkles and breathing improved. Echo pending #Elevated troponin -138 in the ED, will cycle -EKG NSR, 83HR, RBBB -Cards called in ED and agreed w/ ASA and trending troponins -09/24: Troponin 138 and then 164, suspect NSTEMI type II due to exacerbation of chronic heart failure with preserved ejection fraction. Did not have chest painand still does not have chest pain. Do not feel cardiology consult is warrantedat this time #HFpEF -Grade II diastolic dysfunction on echo in 2021 -BNP 243 and appears peripherally overloaded -Repeat echo -09/24: See above #Normocytic anemia -8.1 in the ED, 2 days ago was 8.4 and 9.1 on 09/12. Prior to that baseline seenbetween and -FOBT submitted yesterday on outpatient basis was negative -Follows with Dr. Short, will continue iron supplementation #Hx cad with stent 08/06/2020 -PCI of OM2 with GAGE in 2020 but unsuccessful PCI of SEWER DIGGER of LAD -Has troponin of 138 however no chest pain -Continue aspirin -If chest pain develops or troponin significantly elevates will consult cardiology -09/24: No chest pain, suspect elevated troponin was type II, do not feel cardiology consult is warranted #Chronic pain -Continue buprenorphine patch #pafib -Continue amiodarone -Continue Xarelto #RA -Pt reports he follows w/ rheum as outpt -Takes pred PRN, not presently taking #BLE edema and weeping -Unna boot -Wound care consult #DVT ppx: Continue Xarelto Aisha Vega MD Time spent in the patient's overall evaluation,decision-making process, review of diagnostic data, adjustment of management, discussion with other providers, nursing nursing and ancillary staff involved in patient's care documentation, 30minutes Charges/Coding Visit Charges Inpatient E&M: 40781 Subs Hosp L2 09/24/22 1047 <Electronically signed by Aisha Vega MD> Cosigner Signature (if applicable): CC: ~ Signed [facility] Work Phone: 1(301) 697-435504-28-2023 History and physical note Author Dr. Vega [facility] September 23, 2022 10:48am Note Date/Time September 23, 2022 10: 23am [facility] Medical Records Department [address] [place] [id number] H&P Exam - Hospitalist 09/23/22 1021 MR#: [id number] Acct: [id number] Name: BRYCE ANN Rep #:[id number] : 1940 81 From: Aisha Vega MD PCP: Dr. Gloria Hazel MD Status:REG ER Location: ED HPI - General General Date of Admission: 09/23/22 Date of Service: 09/23/22 Chief Complaint: Leg swelling HPI Narrative Jose Ann is a 81-year-old male with a history of BPH, afib, GERD, RA, CAD, heart failure with preserved ejection fraction presented to [facility] 09/23 by boss d/t soaked pants d/t draining serous fluid. 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 In the ED wound care was contacted and they recommended placing an Unna boot and outpatient follow-up. Initial plan was discharged home however he was found to be 86 to 88% on room air in the ED and was placed on O2. In the ED blood pressure 117/68 with a heart rate of 79 and 93% on room air that dipped down to 88%. Hemoglobin 8.1. Elevated troponin of 138. BNP 243. chest x-ray suggestive of mild scarring bilaterally but stable exam. Hospitalist consulted for acute hypoxia and elevated troponin. Patient was evaluated in the emergency department and reported that he has been feeling and and sluggish and fatigued for very long time and has had increased swelling in his legs over the past couple of years with worsening and increasingshortness of breath over the past 1 to 2 months. He is following with Dr. Vergara recently for anemia and is undergoing work-up and was placed on iron 2 days ago. Has rheumatoid arthritis and follows with Dr. Plasencia and also sees Dr. Farooq pain management. Reports this morning when he went to put pants on he felt his right leg hurting slightly but went to work and then noticed that there was fluid leaking everywhere and he was told to go home and decided to come to the emergency department for further evaluation. Reports poor appetite but that he has been gaining weight. Also reports a growing bump on the top of his right shoulder that has been more recent but is being monitored by his PCP. Denies other complaints at this time. [facility] Medical History Abnormal echocardiogram Abnormal EKG Anemia Appetite loss Atherosclerotic heart disease of [place] coronary artery without angina pectoris Atrial fibrillation Atrial fibrillation with rapid ventricular response Back pain Cardiology follow-up encounter Coronary artery disease Debility Easy bruising Edema Fever Fever Former smoker H/o finger stitches H/o three feet of intestines removed Hemorrhoids History of atrial fibrillation History of echocardiogram History of edema History of heart attack History of irregular heartbeat History of steroid therapy History of stress test Inflammatory arthritis Insomnia Left groin pain Left ventricular hypokinesis Left wrist pain Leg pain, bilateral Lumbar spinal stenosis Muscle spasm Osteoarthritis of left knee Paroxysmal atrial fibrillation PAT (paroxysmal atrial tachycardia) Rheumatoid arthritis Rheumatoid arthritis Right groin pain Right hip joint effusion Scrotal pain Shortness of breath on exertion SVT (supraventricular tachycardia) Syncope Wears glasses Home Medications tamsulosin 0.4 mg capsule 0.4 mg PO DAILY@1800 Retention 07/18/20 [History Last Taken 08/11/20 18:32] Blood pressue cuff #1 ea 09/28/20 [Rx Last Taken Unknown] folic acid 1 mg tablet 2 mg PO DAILY 09/28/20 [History Last Taken Unknown] finasteride 1 mg tablet 5 mg PO DAILY 12/30/20 [History Last Taken Unknown] miscellaneous medical supply 1 ea miscellaneous DIRECTED #1 ea 12/30/20 [Rx Last Taken Unknown] prednisone 5 mg tablet 10 mg PO PRN PRN Spasms 12/30/20 [History Last Taken Unknown] multivitamin (Daily Multi-Vitamin tablet) 1 tab PO DAILY 01/01/21 [History Last Taken Unknown] trazodone 100 mg tablet 150 mg PO QHS 05/09/21 [History Last Taken Unknown] atorvastatin 40 mg tablet (Lipitor) 40 mg PO QHS Cholesterol #90 tabs 10/04/21 [Rx Last Taken Unknown] amiodarone 200 mg tablet 200 mg PO DAILY heart rate #90 tabs 10/08/21 [Rx Last Taken Unknown] aspirin 81 mg tablet,delayed release 81 mg PO DAILY #1 TAB 01/10/22 [Rx Last Taken Unknown] mirtazapine 15 mg tablet 15 mg PO QHS 01/10/22 [History Last Taken Unknown] vitamin B12 2,500 mcg-folic acid 400 mcg disintegrating tablet 1 tab PO DAILY 01/10/22 [History Last Taken Unknown] cyclobenzaprine 10 mg tablet 10 mg PO DAILY PRN muscle spasms 02/07/22 [History Last Taken Unknown] tramadol 50 mg tablet 50 mg PO TID PRN Pain 02/07/22 [History Last Taken Unknown] gabapentin 100 mg tablet 300 mg PO DAILY 05/31/22 [History Last Taken Unknown] golimumab 12.5 mg/mL intravenous solution (Simponi ARIA) mg IV 05/31/22 [History Last Taken Unknown] rivaroxaban 20 mg tablet (Xarelto) 20 mg PO DAILY #90 tabs 06/13/22 [Rx Last Taken Unknown] buprenorphine 10 mcg/hour weekly transdermal patch 1 patch transdermal QWEEK 09/20/22 [History Last Taken Unknown] furosemide 40 mg tablet (Lasix) 40 mg PO DAILY 09/20/22 [History Last Taken Unknown] polysaccharide iron complex 150 mg iron capsule (Ferrex) 150 mg PO DAILY 90 days#90 caps 09/21/22 [Rx Last Taken Unknown] Allergy/AdvReac Type Severity Reaction Status Date / Time No Known Allergies Allergy Verified 09/23/22 07:10 Family History Father CVA (cerebral vascular accident) Brother CAD (coronary artery disease) CABG X 3 Mother CVA (cerebral vascular accident) Grandfather Cancer prostate Surgical History H/O colonoscopy H/O umbilical hernia repair History of cardiac catheterization History of coronary artery stent placement (08/06/20) History of coronary artery stent placement History of lumbar surgery Hx of colectomy Hx of laminectomy Hx of transurethral resection of prostate S/P appendectomy S/P cataract surgery S/P hemorrhoidectomy S/P inguinal hernia repair S/P laparoscopic cholecystectomy S/P left colectomy S/P rotator cuff repair S/P vasectomy Social History household members: none Smoking Status: Former smoker how long ago did patient quit smokin years ago alcohol intake: never substance use type: does not use diet: low salt caffeine: Yes Type: coffee Number of servings: 4 ROS ROS Narrative General: Denies fever/chills, has had some weight gain but poor appetite HENT: Denies headache, some nasal congestion, denies sore throat EYES: Denies changes in vision Resp: Increasing shortness of breath over past couple months Cardiac: Denies chest pain GI: Denies abdominal pain, denies changes in bowel, denies nausea/vomiting, poorp.o. : Denies changes in urination Extremity: Worsening swelling in his extremities for several years but more so over the past 2 months MSK: Feels sluggish and fatigued Neuro: Denies any numbness/tingling Heme: Denies any changes in bleeding Skin: Skin changes on legs Psychiatric: Feeling sluggish and blocked Vital Signs Vital Signs Vital Signs: 09/23/22 07:11 09/23/22 07:11 09/23/22 08:11 Temperature 98.4 F Temperature Source Temporal Pulse Rate 79 Respiratory Rate 18 16 Respiratory Effort Normal Non-Labored Respiratory Pattern Normal Blood Pressure 117/68 Blood Pressure Mean 84 Pulse Ox 93 88 Oxygen Delivery Method Room Air Room Air 09/23/22 08:13 09/23/22 09:59 Temperature 98.4 F Temperature Source Oral Pulse Rate 71 Respiratory Rate 16 12 Respiratory Effort Respiratory Pattern Blood Pressure 157/71 H Blood Pressure Mean 99 Pulse Ox 99 100 Oxygen Delivery Method Nasal Cannula Room Air Weight Weight: 71.9 kg Body Mass Index (BMI) 27.1 Physical Exam Narrative General: Alert, oriented HEENT: Atraumatic, normocephalic Eyes: Anicteric, normal conjunctiva, extraocular movements grossly intact Neck: Supple Respiratory: Diminished, normal respiratory effort Cardiovascular: Regular rate and rhythm GI: Soft, nontender, nondistended Extremities: 4+ bilateral lower extremity edema, tops of feet blottable and feelfilled with fluid, does have dusky fingers and clubbing, also chronic knuckle deforminty consistent with RA Musculoskeletal: Moving all extremities Neuro: No overt focal neurological deficits Skin: Changes on left lower extremity, right lower extremity is wrapped with no drainage Psych: Cooperative Results Lab / Micro Data Result Diagrams: 09/23/22 08:08 09/23/22 08:08 Labs: Laboratory Results - last 24 hr 09/23/22 08:08: WBC 5.8, RBC 2.93 L, Hgb 8.1 L, Hct 27.0 L, MCV 92.2, MCH 27.6, MCHC 30.0 L, RDW Std Deviation 55.1 H, RDW Coeff of Jaciel 16.6 H, Plt Count 316, MPV 9.0, Immature Gran % (Auto) 0.300, Neut % (Auto) 69.7, Lymph % (Auto) 15.8 L, [place] % (Auto) 11.1 H, Eos % (Auto) 2.2, Baso % (Auto) 0.9, Absolute Neuts (auto) 4.1, Absolute Lymphs (auto) 0.92, Nucleated RBC % 0 09/23/22 08:08: Sodium 138, Potassium 3.6, Chloride 105, Carbon Dioxide 31.0, Anion Gap 2 L, BUN 15, Creatinine 0.94, Estim Creat Clear Calc 53.36, Est GFR (MDRD) Af Amer 99, Est GFR (MDRD) Non-Af 82, BUN/Creatinine Ratio 15.9, Glucose 104, Calcium 8.2 L, Total Bilirubin 0.90, AST 29, ALT 28, Alkaline Phosphatase 89, Troponin I High Sens 138 H*, Total Protein 5.9 L, Albumin 2.9 L, Globulin 3.0, Albumin/Globulin Ratio 1.0 09/23/22 08:08: B-Natriuretic Peptide 243.4 H Radiology Impression Chest X-Ray 09/23/22 07:53 IMPRESSION: Stable examination. Findings suggestive of mild scarring bilaterally. Electronically Signed: Nicko Yoon MD at 8:47 EDT , Assessment & Plan Assessment/Plan (1) Hypoxia: (2) Elevated troponin: (3) Elevated brain natriuretic peptide (BNP) level: PLAN: Plan #Acute hypoxia -88% on room air in the ED which improved with nasal cannula -Suspect this is multifactorial, does appear to have some overload suggesting cor pulmonale but no overt edema seen on chest x-ray. Is known to have heart failure with preserved ejection fraction. -Chest x-ray suggestive of mild scarring bilaterally but stable exam, suspect there is an additional etiology in addition to fluid overload -BNP 243 with no previous for comparison -Last echo 01/27/2022 with an EF of 55%, mild to moderate mitral valve insufficiency, RVSP of 35, stage II diastolic dysfunction -We will repeat echocardiogram -Does take Lasix 40 mg daily, will start IV dosing -I's and O's, daily weights -We will check CT chest to further characterize -We will check COVID and flu -May need to follow-up with a poiser on discharge -Very low suspicion for PE I feel there is more likely other etiologies, additionally per documentation he is on Xarelto, will need to confirm this -Reports remote history of smoking, quit 52 years ago. Does not have a poiser -No wheezing, do not suspect COPD, can add albuterol as needed #Elevated troponin -138 in the ED, will cycle -EKG NSR, 83HR, RBBB -Cards called in ED and agreed w/ ASA and trending troponins #HFpEF -Grade II diastolic dysfunction on echo in 2021 -BNP 243 and appears peripherally overloaded -Repeat echo #Normocytic anemia -8.1 in the ED, 2 days ago was 8.4 and 9.1 on 09/12. Prior to that baseline seenbetween and 12 -FOBT submitted yesterday on outpatient basis was negative -Follows with Dr. Short, will continue iron supplementation #Hx cad with stent 08/06/2020 -PCI of OM2 with GAGE in 2020 but unsuccessful PCI of SEWER DIGGER of LAD -Has troponin of 138 however no chest pain -Continue aspirin -If chest pain develops or troponin significantly elevates will consult cardiology #Chronic pain -Continue buprenorphine patch #pafib -Continue amiodarone -Continue Xarelto #RA -Pt reports he follows w/ rheum as outpt -Takes pred PRN, not presently taking #BLE edema and weeping -Unna boot -Wound care consult #DVT ppx: Continue Xarelto, if not presently on xeralto will need to add dvt ppx Aisha Vega MD Time spent in the patient's overall evaluation,decision-making process, review of diagnostic data, adjustment of management, discussion with other providers, nursing nursing and ancillary staff involved in patient's care documentation, 60minutes Charges/Coding Visit Charges Inpatient E&M: 53618 Init Hosp L2 09/23/22 1048 <Electronically signed by Aisha Vega MD> Cosigner Signature (if applicable): CC: Dr. Gloria Hazel MD; Dr. Aisha Vega MD~ Signed [facility] Work Phone: [phone]) 722-463404-28-[address] Lozano [facility] September 23, 2022 9:54am Note Date/Time September 23, 2022 7:5 2am [facility] Medical Records Department [address] [place] [id number] Emergency Department Summary 09/23/22 MR#: [id number] Acct: [id number] Name: BRYCE ANN Rep #:[id number] : 1940 81 From: Apolinar Lozano MD PCP: Dr. 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 He admits to sitting approximately 6 hours a day and stands significantly while at work. He states he does not always sleep in his bed. He does sleep in a lazy boy. He does not endorse orthopnea or PND. 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 Patient denies fever, chills night sweats. Patient denies weight loss or weightgain. Patient denies headache, visual, ocular auditory symptoms. Patient denies GI symptoms. He denies change in color, consistency or caliber of his stool. Patient denies chest discomfort of any type. Patient denies dyspnea on exertion. Patient denies orthopnea or PND. Patient states he has had difficulty getting around. Apparently he was sent home from work because of theamount of drainage from the open area. Tetanus Immunization: Unknown Prior similar symptoms: Yes Recent Illness/Hospitalization: No PFSH PFS Medical History Abnormal echocardiogram Abnormal EKG Anemia Appetite loss Atherosclerotic heart disease of [place] coronary artery without angina pectoris Atrial fibrillation Atrial fibrillation with rapid ventricular response Back pain Cardiology follow-up encounter Coronary artery disease Debility Easy bruising Edema Fever Fever Former smoker H/o finger stitches H/o three feet of intestines removed Hemorrhoids History of atrial fibrillation History of echocardiogram History of edema History of heart attack History of irregular heartbeat History of steroid therapy History of stress test Inflammatory arthritis Insomnia Left groin pain Left ventricular hypokinesis Left wrist pain Leg pain, bilateral Lumbar spinal stenosis Muscle spasm Osteoarthritis of left knee Paroxysmal atrial fibrillation PAT (paroxysmal atrial tachycardia) Rheumatoid arthritis Rheumatoid arthritis Right groin pain Right hip joint effusion Scrotal pain Shortness of breath on exertion SVT (supraventricular tachycardia) Syncope Wears glasses Home Medications tamsulosin 0.4 mg capsule 0.4 mg PO DAILY@1800 Retention 07/18/20 [History Last Taken 08/11/20 18:32] Blood pressue cuff #1 ea 09/28/20 [Rx Last Taken Unknown] folic acid 1 mg tablet 2 mg PO DAILY 09/28/20 [History Last Taken Unknown] finasteride 1 mg tablet 5 mg PO DAILY 12/30/20 [History Last Taken Unknown] miscellaneous medical supply 1 ea miscellaneous DIRECTED #1 ea 12/30/20 [Rx Last Taken Unknown] prednisone 5 mg tablet 10 mg PO PRN PRN Spasms 12/30/20 [History Last Taken Unknown] multivitamin (Daily Multi-Vitamin tablet) 1 tab PO DAILY 01/01/21 [History Last Taken Unknown] trazodone 100 mg tablet 150 mg PO QHS 05/09/21 [History Last Taken Unknown] atorvastatin 40 mg tablet (Lipitor) 40 mg PO QHS Cholesterol #90 tabs 10/04/21 [Rx Last Taken Unknown] amiodarone 200 mg tablet 200 mg PO DAILY heart rate #90 tabs 10/08/21 [Rx Last Taken Unknown] aspirin 81 mg tablet,delayed release 81 mg PO DAILY #1 TAB 01/10/22 [Rx Last Taken Unknown] mirtazapine 15 mg tablet 15 mg PO QHS 01/10/22 [History Last Taken Unknown] vitamin B12 2,500 mcg-folic acid 400 mcg disintegrating tablet 1 tab PO DAILY 01/10/22 [History Last Taken Unknown] cyclobenzaprine 10 mg tablet 10 mg PO DAILY PRN muscle spasms 02/07/22 [History Last Taken Unknown] tramadol 50 mg tablet 50 mg PO TID PRN Pain 02/07/22 [History Last Taken Unknown] gabapentin 100 mg tablet 100 mg PO TID 05/31/22 [History Last Taken Unknown] golimumab 12.5 mg/mL intravenous solution (Simponi ARIA) mg IV 05/31/22 [History Last Taken Unknown] rivaroxaban 20 mg tablet (Xarelto) 20 mg PO DAILY #90 tabs 06/13/22 [Rx Last Taken Unknown] buprenorphine 10 mcg/hour weekly transdermal patch 1 patch transdermal QWEEK 09/20/22 [History Last Taken Unknown] furosemide 40 mg tablet (Lasix) 40 mg PO DAILY 09/20/22 [History Last Taken Unknown] polysaccharide iron complex 150 mg iron capsule (Ferrex) 150 mg PO DAILY 90 days#90 caps 09/21/22 [Rx Last Taken Unknown] Allergy/AdvReac Type Severity Reaction Status Date / Time No Known Allergies Allergy Verified 09/23/22 07:10 Family History Father CVA (cerebral vascular accident) Brother CAD (coronary artery disease) CABG X 3 Mother CVA (cerebral vascular accident) Grandfather Cancer prostate Surgical History H/O colonoscopy H/O umbilical hernia repair History of cardiac catheterization History of coronary artery stent placement (08/06/20) History of coronary artery stent placement History of lumbar surgery Hx of colectomy Hx of laminectomy Hx of transurethral resection of prostate S/P appendectomy S/P cataract surgery S/P hemorrhoidectomy S/P inguinal hernia repair S/P laparoscopic cholecystectomy S/P left colectomy S/P rotator cuff repair S/P vasectomy Social History household members: none Smoking Status: Former smoker how long ago did patient quit smokin years ago alcohol intake: never substance use type: does not use diet: low salt caffeine: Yes Type: coffee Number of servings: 4 ROS ROS ED Constitutional Constitutional ED: Denies chills, fever(s), subjective, sweats or weight loss Eyes Eyes: Denies blurry vision, change in vision or diplopia ENT ENT ED: Denies ear pain, rhinorrhea or sore throat Cardiovascular Cardiovascular: Denies chest pain, orthopnea, palpitations, paroxysmal nocturnaldyspnea or racing heartbeat Respiratory/Chest Respiratory/Chest: Denies cough, dyspnea, dyspnea on exertion, orthopnea or paroxysmal nocturnal dyspnea Gastrointestinal Gastrointestinal: Denies abdominal pain, diarrhea, nausea or vomiting Genitourinary Genitourinary ED: Denies dysuria, hematuria or urinary frequency Musculoskeletal Musculoskeletal: Reports back pain and other Details: Patient's back pain is chronic. He has had prior back surgery. Integumentary Reports other Details: Patient has a superficial wound mid lateral right leg that has serous drainage. Neurologic Neurologic: Denies headache(s), paresthesias or weakness Hematologic/Lymphatic Hematologic/Lymphatic: Denies easy bleeding or easy bruising EXAM Physical Exam Const Vital Signs: 09/23/22 07:11 09/23/22 07:11 09/23/22 08:11 Temperature 98.4 F Temperature Source Temporal Pulse Rate 79 Respiratory Rate 18 16 Respiratory Effort Normal Non-Labored Respiratory Pattern Normal Blood Pressure 117/68 Blood Pressure Mean 84 Pulse Ox 93 88 Oxygen Delivery Method Room Air Room Air 09/23/22 08:13 Temperature Temperature Source Pulse Rate Respiratory Rate 16 Respiratory Effort Respiratory Pattern Blood Pressure Blood Pressure Mean Pulse Ox 99 Oxygen Delivery Method Nasal Cannula Positive well nourished, well developed and unkempt General Appearance ED: unkempt, well developed and NAD HEENT Reports moist mucous membranes normocephalic and atraumatic Eyes PERRL Eyes Narrative: Extraocular muscles are intact. Conjunctive a looks pale. Neck full ROM and supple Neck Narrative: There is no OG VD. Chest Wall inspection of chest normal and palpation of chest normal Resp normal respiratory effort, no retractions and No clear to auscultation bilaterally Auscultation: rales bilateral base Cardio regular rate, regular rhythm, S1 normal heart sound, S2 normal heart sound and no murmurs GI non-tender, non-distended and no masses GI Narrative: There is no palpable pulsatile mass. There is no abdominal bruit. There is no hepatosplenomegaly. Palpation: soft Back/Spine no CVA tenderness Lumbar Spine / Lower Back: lumbar spinal tenderness Extremity Negative for normal to inspection Extremity Narrative: Patient has paler appearing right foot than left. Unable to appreciate pulses on either side because of the amount of lymphedema. Capillary refill is normal on the left. There is a slight delay on the right. There is no evidence of infection right or left leg or feet. Patient has a small open area medial proximal right thigh that has some discoloration. There is no warmth, induration, lymphangitis or lymphadenopathy in the inguinal region. Neuro oriented x3, CN's II-XII intact bilaterally and moves all extremities Sensorium / Orientation: alert Psych Psych Narrative: Patient has a flat affect and depressed mood. Appearance: unkempt Skin Skin Narrative: Documented under the extremity portion of the chart MDM MDM MDM Narrative Medical decision making narrative: 1. Contacted wound center. They recommended Kate arce. Initially thought was to have patient urgently seen at the wound center. When I went in to inform them that case management would not be available until 10 AM his pulse ox with agood waveform was reading 86 to 88% on room air. In light of this will obtain work-up to determine the cause of his hypoxia. Chest x-ray was obtained to assess for pneumonia and congestive heart failure. EKG to rule out cardiac ischemia. Troponin and BNP to assess for cardiac ischemia and heart failure. He does appear anemic and has history of anemia will obtain CBC to assess H&H aswell as platelet count. BMP was obtained to assess renal function. Lab Data Attestation: I reviewed the patient's lab results. Lab results narrative: Patient is anemic with a hemoglobin of 8.1 and 27.0. MCV is normal. Differential is no. Comp metabolic panel is unremarkable. Troponin is [id number]. BNP is elevated 243. Albumin is slightly low at 2.9. Labs: Laboratory Results - last 24 hr 09/23/22 09/23/22 09/23/22 08:08 08:08 08:08 WBC 5.8 RBC 2.93 L Hgb 8.1 L Hct 27.0 L MCV 92.2 MCH 27.6 MCHC 30.0 L RDW Std Deviation 55.1 H RDW Coeff of Jaciel 16.6 H Plt Count 316 MPV 9.0 Immature Gran % (Auto) 0.300 Neut % (Auto) 69.7 Lymph % (Auto) 15.8 L [place] % (Auto) 11.1 H Eos % (Auto) 2.2 Baso % (Auto) 0.9 Absolute Neuts (auto) 4.1 Absolute Lymphs (auto) 0.92 Nucleated RBC % 0 Sodium 138 Potassium 3.6 Chloride 105 Carbon Dioxide 31.0 Anion Gap 2 L BUN 15 Creatinine 0.94 Estim Creat Clear Calc 53.36 Est GFR (MDRD) Af Amer 99 Est GFR (MDRD) Non-Af 82 BUN/Creatinine Ratio 15.9 Glucose 104 Calcium 8.2 L Total Bilirubin 0.90 AST 29 ALT 28 Alkaline Phosphatase 89 Troponin I High Sens 138 H* B-Natriuretic Peptide 243.4 H Total Protein 5.9 L Albumin 2.9 L Globulin 3.0 Albumin/Globulin Ratio 1.0 Radiography Chest X-Ray - ED: Read by ED Physician (2 view chest x-ray reveals chronic changes with bilateral scarring worse on right than left. There is elevated hemidiaphragm. Cardiac size within normal limits. Ostia structures unremarkable. This was independent reviewed interpreted by me.) Diagnostic Testing: Clinical Impression(s) from Imaging Studies Chest X-Ray 09/23/22 07:53 IMPRESSION: Stable examination. Findings suggestive of mild scarring bilaterally. Electronically Signed: Nicko Yoon MD at 8:47 EDT , Management Discussion w/another healthcare provider: Other (Wound center and documented under the MDM portion of the chart) Procedures Other Procedures Procedure(s): Application of Unna boot right lower extremity. Total time 5 minutes Discharge Plan Triage Chief Complaint: Edema ED Provider: Apolinar Lozano Dx/Rx/DC Orders Clinical Impression: Hypoxia, Elevated troponin, Elevated brain natriuretic peptide (BNP) level, Lymphedema of both lower extremities, Atherosclerotic heart disease of [place] coronary artery without angina pectoris, GERD (gastroesophageal reflux disease),Aortic valve stenosis, acquired Prescriptions: No Action folic acid 1 mg tablet 2 mg PO DAILY (DME) Blood pressue cuff See Rx Instructions .Route .MEDSUPPLY Qty: 1 0RF Rx Instructions: As directed mirtazapine 15 mg tablet 15 mg PO QHS multivitamin [Daily Multi-Vitamin] Tablet 1 tab PO DAILY finasteride 1 mg tablet 5 mg PO DAILY prednisone 5 mg tablet 10 mg PO PRN PRN (Reason: Spasms) miscellaneous medical supply Misc 1 ea miscellaneous DIRECTED Qty: 1 0RF Rx Instructions: handicap placard, for life. aspirin 81 mg tablet,delayed release (DR/EC) 81 mg PO DAILY Qty: 1 0RF polysaccharide iron complex [Ferrex 150] 150 mg iron capsule 150 mg PO DAILY 90 Days Qty: 90 0RF tamsulosin 0.4 MG capsule 0.4 mg PO DAILY@1800 trazodone 100 MG tablet 150 mg PO QHS vitamin R88-zyzel acid 2,500-400 mcg tablet,disintegrating 1 tab PO DAILY cyclobenzaprine 10 mg Tablet 10 mg PO DAILY PRN (Reason: muscle spasms) tramadol 50 mg Tablet 50 mg PO TID PRN (Reason: Pain) gabapentin 100 mg Tablet 100 mg PO TID Simponi ARIA 12.5 mg/mL Solution IV furosemide [Lasix] 40 mg Tablet 40 mg PO DAILY buprenorphine 10 mcg/hour Patch Weekly 1 patch TRANSDERMAL QWEEK atorvastatin [Lipitor] 40 mg tablet 40 mg PO QHS Qty: 90 3RF amiodarone 200 mg tablet 200 mg PO DAILY Qty: 90 3RF Xarelto 20 mg tablet 20 mg PO DAILY Qty: 90 4RF Rx Instructions: must administer with evening meal Primary Care Provider: Gloria Hazel Referrals: Gloria Hazel MD [Primary Care Provider] - Disposition Disposition: Acute Care Hospital [facility] What to do if you have Problems For any increased pain, shortness of breath, bleeding, nausea or vomiting, chestpain, or any unexpected problems, contact your Primary Care Provider. Call [facility] ([phone]) or report to the closest Emergency Room. Call 911 if necessary. 09/23/22 0954 <Electronically signed by Apolinar Lozano MD> Cosigner Signature (if applicable): CC: Dr. Gloria Hazel MD ~ Signed [facility] Work Phone: [phone] Lozano [facility] September 23, 2022 9:54am Note Date/Time September 23, 2022 7:5 2am [facility] Medical Records Department [address] [place] [id number] Emergency Department Summary 09/23/22 MR#: [id number] Acct: [id number] Name: BRYCE ANN Rep #:[id number] : [id number] From: Apolinar Lozano MD PCP: Dr. 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 He admits to sitting approximately 6 hours a day and stands significantly while at work. He states he does not always sleep in his bed. He does sleep in a lazy boy. He does not endorse orthopnea or PND. 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 Patient denies fever, chills night sweats. Patient denies weight loss or weightgain. Patient denies headache, visual, ocular auditory symptoms. Patient denies GI symptoms. He denies change in color, consistency or caliber of his stool. Patient denies chest discomfort of any type. Patient denies dyspnea on exertion. Patient denies orthopnea or PND. Patient states he has had difficulty getting around. Apparently he was sent home from work because of theamount of drainage from the open area. Tetanus Immunization: Unknown Prior similar symptoms: Yes Recent Illness/Hospitalization: No [facility] Medical History Abnormal echocardiogram Abnormal EKG Anemia Appetite loss Atherosclerotic heart disease of [place] coronary artery without angina pectoris Atrial fibrillation Atrial fibrillation with rapid ventricular response Back pain Cardiology follow-up encounter Coronary artery disease Debility Easy bruising Edema Fever Fever Former smoker H/o finger stitches H/o three feet of intestines removed Hemorrhoids History of atrial fibrillation History of echocardiogram History of edema History of heart attack History of irregular heartbeat History of steroid therapy History of stress test Inflammatory arthritis Insomnia Left groin pain Left ventricular hypokinesis Left wrist pain Leg pain, bilateral Lumbar spinal stenosis Muscle spasm Osteoarthritis of left knee Paroxysmal atrial fibrillation PAT (paroxysmal atrial tachycardia) Rheumatoid arthritis Rheumatoid arthritis Right groin pain Right hip joint effusion Scrotal pain Shortness of breath on exertion SVT (supraventricular tachycardia) Syncope Wears glasses Home Medications tamsulosin 0.4 mg capsule 0.4 mg PO DAILY@1800 Retention 07/18/20 [History Last Taken 08/11/20 18:32] Blood pressue cuff #1 ea 09/28/20 [Rx Last Taken Unknown] folic acid 1 mg tablet 2 mg PO DAILY 09/28/20 [History Last Taken Unknown] finasteride 1 mg tablet 5 mg PO DAILY 12/30/20 [History Last Taken Unknown] miscellaneous medical supply 1 ea miscellaneous DIRECTED #1 ea 12/30/20 [Rx Last Taken Unknown] prednisone 5 mg tablet 10 mg PO PRN PRN Spasms 12/30/20 [History Last Taken Unknown] multivitamin (Daily Multi-Vitamin tablet) 1 tab PO DAILY 01/01/21 [History Last Taken Unknown] trazodone 100 mg tablet 150 mg PO QHS 05/09/21 [History Last Taken Unknown] atorvastatin 40 mg tablet (Lipitor) 40 mg PO QHS Cholesterol #90 tabs 10/04/21 [Rx Last Taken Unknown] amiodarone 200 mg tablet 200 mg PO DAILY heart rate #90 tabs 10/08/21 [Rx Last Taken Unknown] aspirin 81 mg tablet,delayed release 81 mg PO DAILY #1 TAB 01/10/22 [Rx Last Taken Unknown] mirtazapine 15 mg tablet 15 mg PO QHS 01/10/22 [History Last Taken Unknown] vitamin B12 2,500 mcg-folic acid 400 mcg disintegrating tablet 1 tab PO DAILY 01/10/22 [History Last Taken Unknown] cyclobenzaprine 10 mg tablet 10 mg PO DAILY PRN muscle spasms 02/07/22 [History Last Taken Unknown] tramadol 50 mg tablet 50 mg PO TID PRN Pain 02/07/22 [History Last Taken Unknown] gabapentin 100 mg tablet 100 mg PO TID 05/31/22 [History Last Taken Unknown] golimumab 12.5 mg/mL intravenous solution (Simponi ARIA) mg IV 05/31/22 [History Last Taken Unknown] rivaroxaban 20 mg tablet (Xarelto) 20 mg PO DAILY #90 tabs 06/13/22 [Rx Last Taken Unknown] buprenorphine 10 mcg/hour weekly transdermal patch 1 patch transdermal QWEEK 09/20/22 [History Last Taken Unknown] furosemide 40 mg tablet (Lasix) 40 mg PO DAILY 09/20/22 [History Last Taken Unknown] polysaccharide iron complex 150 mg iron capsule (Ferrex) 150 mg PO DAILY 90 days#90 caps 09/21/22 [Rx Last Taken Unknown] Allergy/AdvReac Type Severity Reaction Status Date / Time No Known Allergies Allergy Verified 09/23/22 07:10 Family History Father CVA (cerebral vascular accident) Brother CAD (coronary artery disease) CABG X 3 Mother CVA (cerebral vascular accident) Grandfather Cancer prostate Surgical History H/O colonoscopy H/O umbilical hernia repair History of cardiac catheterization History of coronary artery stent placement (08/06/20) History of coronary artery stent placement History of lumbar surgery Hx of colectomy Hx of laminectomy Hx of transurethral resection of prostate S/P appendectomy S/P cataract surgery S/P hemorrhoidectomy S/P inguinal hernia repair S/P laparoscopic cholecystectomy S/P left colectomy S/P rotator cuff repair S/P vasectomy Social History household members: none Smoking Status: Former smoker how long ago did patient quit smokin years ago alcohol intake: never substance use type: does not use diet: low salt caffeine: Yes Type: coffee Number of servings: 4 ROS ROS ED Constitutional Constitutional ED: Denies chills, fever(s), subjective, sweats or weight loss Eyes Eyes: Denies blurry vision, change in vision or diplopia ENT ENT ED: Denies ear pain, rhinorrhea or sore throat Cardiovascular Cardiovascular: Denies chest pain, orthopnea, palpitations, paroxysmal nocturnaldyspnea or racing heartbeat Respiratory/Chest Respiratory/Chest: Denies cough, dyspnea, dyspnea on exertion, orthopnea or paroxysmal nocturnal dyspnea Gastrointestinal Gastrointestinal: Denies abdominal pain, diarrhea, nausea or vomiting Genitourinary Genitourinary ED: Denies dysuria, hematuria or urinary frequency Musculoskeletal Musculoskeletal: Reports back pain and other Details: Patient's back pain is chronic. He has had prior back surgery. Integumentary Reports other Details: Patient has a superficial wound mid lateral right leg that has serous drainage. Neurologic Neurologic: Denies headache(s), paresthesias or weakness Hematologic/Lymphatic Hematologic/Lymphatic: Denies easy bleeding or easy bruising EXAM Physical Exam Const Vital Signs: 09/23/22 07:11 09/23/22 07:11 09/23/22 08:11 Temperature 98.4 F Temperature Source Temporal Pulse Rate 79 Respiratory Rate 18 16 Respiratory Effort Normal Non-Labored Respiratory Pattern Normal Blood Pressure 117/68 Blood Pressure Mean 84 Pulse Ox 93 88 Oxygen Delivery Method Room Air Room Air 09/23/22 08:13 Temperature Temperature Source Pulse Rate Respiratory Rate 16 Respiratory Effort Respiratory Pattern Blood Pressure Blood Pressure Mean Pulse Ox 99 Oxygen Delivery Method Nasal Cannula Positive well nourished, well developed and unkempt General Appearance ED: unkempt, well developed and NAD HEENT Reports moist mucous membranes normocephalic and atraumatic Eyes PERRL Eyes Narrative: Extraocular muscles are intact. Conjunctive a looks pale. Neck full ROM and supple Neck Narrative: There is no OG VD. Chest Wall inspection of chest normal and palpation of chest normal Resp normal respiratory effort, no retractions and No clear to auscultation bilaterally Auscultation: rales bilateral base Cardio regular rate, regular rhythm, S1 normal heart sound, S2 normal heart sound and no murmurs GI non-tender, non-distended and no masses GI Narrative: There is no palpable pulsatile mass. There is no abdominal bruit. There is no hepatosplenomegaly. Palpation: soft Back/Spine no CVA tenderness Lumbar Spine / Lower Back: lumbar spinal tenderness Extremity Negative for normal to inspection Extremity Narrative: Patient has paler appearing right foot than left. Unable to appreciate pulses on either side because of the amount of lymphedema. Capillary refill is normal on the left. There is a slight delay on the right. There is no evidence of infection right or left leg or feet. Patient has a small open area medial proximal right thigh that has some discoloration. There is no warmth, induration, lymphangitis or lymphadenopathy in the inguinal region. Neuro oriented x3, CN's II-XII intact bilaterally and moves all extremities Sensorium / Orientation: alert Psych Psych Narrative: Patient has a flat affect and depressed mood. Appearance: unkempt Skin Skin Narrative: Documented under the extremity portion of the chart MDM MDM MDM Narrative Medical decision making narrative: 1. Contacted wound center. They recommended Unna boot. Initially thought was to have patient urgently seen at the wound center. When I went in to inform them that case management would not be available until 10 AM his pulse ox with agood waveform was reading 86 to 88% on room air. In light of this will obtain work-up to determine the cause of his hypoxia. Chest x-ray was obtained to assess for pneumonia and congestive heart failure. EKG to rule out cardiac ischemia. Troponin and BNP to assess for cardiac ischemia and heart failure. He does appear anemic and has history of anemia will obtain CBC to assess H&H aswell as platelet count. BMP was obtained to assess renal function. Lab Data Attestation: I reviewed the patient's lab results. Lab results narrative: Patient is anemic with a hemoglobin of 8.1 and 27.0. MCV is normal. Differential is no. Comp metabolic panel is unremarkable. Troponin is [id number]. BNP is elevated 243. Albumin is slightly low at 2.9. Labs: Laboratory Results - last 24 hr 09/23/22 09/23/22 09/23/22 08:08 08:08 08:08 WBC 5.8 RBC 2.93 L Hgb 8.1 L Hct 27.0 L MCV 92.2 MCH 27.6 MCHC 30.0 L RDW Std Deviation 55.1 H RDW Coeff of Jaciel 16.6 H Plt Count 316 MPV 9.0 Immature Gran % (Auto) 0.300 Neut % (Auto) 69.7 Lymph % (Auto) 15.8 L [place] % (Auto) 11.1 H Eos % (Auto) 2.2 Baso % (Auto) 0.9 Absolute Neuts (auto) 4.1 Absolute Lymphs (auto) 0.92 Nucleated RBC % 0 Sodium 138 Potassium 3.6 Chloride 105 Carbon Dioxide 31.0 Anion Gap 2 L BUN 15 Creatinine 0.94 Estim Creat Clear Calc 53.36 Est GFR (MDRD) Af Amer 99 Est GFR (MDRD) Non-Af 82 BUN/Creatinine Ratio 15.9 Glucose 104 Calcium 8.2 L Total Bilirubin 0.90 AST 29 ALT 28 Alkaline Phosphatase 89 Troponin I High Sens 138 H* B-Natriuretic Peptide 243.4 H Total Protein 5.9 L Albumin 2.9 L Globulin 3.0 Albumin/Globulin Ratio 1.0 Radiography Chest X-Ray - ED: Read by ED Physician (2 view chest x-ray reveals chronic changes with bilateral scarring worse on right than left. There is elevated hemidiaphragm. Cardiac size within normal limits. [place] structures unremarkable. This was independent reviewed interpreted by me.) Diagnostic Testing: Clinical Impression(s) from Imaging Studies Chest X-Ray 09/23/22 07:53 IMPRESSION: Stable examination. Findings suggestive of mild scarring bilaterally. Electronically Signed: Nicko Yoon MD at 8:47 EDT , Management Discussion w/another healthcare provider: Other (Wound center and documented under the MDM portion of the chart) Procedures Other Procedures Procedure(s): Application of Unna boot right lower extremity. Total time 5 minutes Discharge Plan Triage Chief Complaint: Edema ED Provider: Apolinar Lozano Dx/Rx/DC Orders Clinical Impression: Hypoxia, Elevated troponin, Elevated brain natriuretic peptide (BNP) level, Lymphedema of both lower extremities, Atherosclerotic heart disease of [place] coronary artery without angina pectoris, GERD (gastroesophageal reflux disease),Aortic valve stenosis, acquired Prescriptions: No Action folic acid 1 mg tablet 2 mg PO DAILY (DME) Blood pressue cuff See Rx Instructions .Route .MEDSUPPLY Qty: 1 0RF Rx Instructions: As directed mirtazapine 15 mg tablet 15 mg PO QHS multivitamin [Daily Multi-Vitamin] Tablet 1 tab PO DAILY finasteride 1 mg tablet 5 mg PO DAILY prednisone 5 mg tablet 10 mg PO PRN PRN (Reason: Spasms) miscellaneous medical supply Mis 1 ea miscellaneous DIRECTED Qty: 1 0RF Rx Instructions: handicap placard, for life. aspirin 81 mg tablet,delayed release (DR/EC) 81 mg PO DAILY Qty: 1 0RF polysaccharide iron complex [Ferrex 150] 150 mg iron capsule 150 mg PO DAILY 90 Days Qty: 90 0RF tamsulosin 0.4 MG capsule 0.4 mg PO DAILY@1800 trazodone 100 MG tablet 150 mg PO QHS vitamin X36-srrrl acid 2,500-400 mcg tablet,disintegrating 1 tab PO DAILY cyclobenzaprine 10 mg Tablet 10 mg PO DAILY PRN (Reason: muscle spasms) tramadol 50 mg Tablet 50 mg PO TID PRN (Reason: Pain) gabapentin 100 mg Tablet 100 mg PO TID Simponi ARIA 12.5 mg/mL Solution IV furosemide [Lasix] 40 mg Tablet 40 mg PO DAILY buprenorphine 10 mcg/hour Patch Weekly 1 patch TRANSDERMAL QWEEK atorvastatin [Lipitor] 40 mg tablet 40 mg PO QHS Qty: 90 3RF amiodarone 200 mg tablet 200 mg PO DAILY Qty: 90 3RF Xarelto 20 mg tablet 20 mg PO DAILY Qty: 90 4RF Rx Instructions: must administer with evening meal Primary Care Provider: Gloria Hazel Referrals: Gloria Hazel MD [Primary Care Provider] - Disposition Disposition: Acute Care Hospital [facility] What to do if you have Problems For any increased pain, shortness of breath, bleeding, nausea or vomiting, chestpain, or any unexpected problems, contact your Primary Care Provider. Call [facility] ([phone]) or report to the closest Emergency Room. Call 911 if necessary. 09/23/22 0954 <Electronically signed by Apolinar Lozano MD> Cosigner Signature (if applicable): CC: Dr. Gloria Hazel MD ~ Signed [facility] Work Phone: 1([phone] 676-243406-02-2022 Miscellaneous Notes* Telephone Encounter - Faustina Sheldon LPN - 10/28/2021 10:02 AM EDT Phone call placed patient advised (see prior provider encounter) Patient reported after review of medication list d/c Kayla France verbalized understanding, agreed with plan of care. Faustina Sheldon LPN * Telephone Encounter - Tonio Johnson MD - 10/28/2021 7:54 AM EDT COVID test was positive. Stay home for [...] symptoms; ER if severe. [facility] Instructions* Patient Instructions* Lucero Mcwilliams APRN.CUSTOM PROTECTION OFFICER - 10/27/2021 3:03 PM EDT Uri, acute (primary encounter diagnosis) Viral illness You have been diagnosed with an illness caused by a virus. Antibiotics do not cure viral infections. If given when not needed, antibiotics can be harmful. The treatments described below will help youfeel better while your body's own defenses are [...] No follow-ups on file. [facility] History of Present illness Narrative* Lucero Mcwilliams APRN.CNP - 10/27/2021 2:57 PM EDT This note was created using Engiver. Subjective Bryce Ann is a 80 year old male. 80 year old male with PMH irregular heart beat, hyperlipidemia, RA and cardiac stents (on Xarelto) presents requesting COVID testing. Acute onset Monday night +cough +nasal congestion +fever + chills +body aches + malaise Denies N/V/D Denies skin rash or lesions. States that he has had COVID vaccine. He works at [employer], states his last day was October 09. Unknown if he was in direct contact with ill persons. 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 Denies tobacco usage. The history is provided by the patient. No clubhouse attendant was used. URI He complains of cough. There is no chest tightness, difficulty breathing, frequent throat clearing,hemoptysis, hoarse voice, shortness of breath, sputum production or wheezing. This is a new problem. The current episode started in the past 7 days. The problem occurs constantly. The problem has been unchanged. The cough is non-productive. Associated symptoms include a fever, headaches, malaise/fatigue, myalgias, nasal congestion, postnasal drip, rhinorrhea, sneezing and a sore throat. Pertinentnegatives include no appetite change, chest pain, dyspnea on exertion, ear congestion, ear pain, heartburn, orthopnea, PND, sweats, trouble swallowing or weight loss. His symptoms are aggravated by no thing. His symptoms are alleviated by nothing. He reports no improvement on treatment. There are noknown risk factors for lung disease. There is [...] WITH FLUA+B, ROUTINE-obtained and pending Lucero Mcwilliams APRN.CUSTOM PROTECTION OFFICER documented [facility] this [facility] Evaluation note* Diagnosis Onset Date Resolution Status Nonrheumatic aortic (valve) stenosis acute 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 Atrial fibrillation chronic History of coronary artery stent placement August 06, 2020 chronic PSVT (paroxysmal supraventricular tachycardia) chronic Abnormal CT lung screening a cute Anemia acute Diarrhea acute [facility] Work Phone: [phone]) [phone] Evaluation note* Diagnosis Onset Date Resolution Status Nonrheumatic aortic (valve) stenosis acute On amiodarone therapy acute 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 History of coronary artery stent placement August 06, 2020 chronic PSVT (paroxysmal supraventricular tachycardia) chronic [facility] Work Phone: Discharge summary Author [facility] January 27, 2023 2:32pm Note Date/Time January 27, 2023 2:32pm [facility] Medical Records Department [address] [place] [address] Transfer to [facility] Emergency Department MR#: [id number] Acct: [id number] Name: BRYCE ANN Rep #:[id number] : 1940 [id number] From: Yogesh Lebron MD PCP: Dr. Gloria Hazel MD Status:ADM IN Certification of patient admission REQUIRED AT TIME OF ADMISSION. I CERTIFY THAT POST-HOSPITAL F SERVICES ARE REQUIRED TO BE GIVEN ON AN IN-PATIENT BASIS BECAUSE OF THE ABOVE NAMED PATIENT'S NEED FOR SHELTER CARE ON A CONTINUING BASIS FOR THE CONDITION(S) FOR WHICH HE/SHE WAS RECEIVING IN-PATIENT HOSPITAL SERVICES PRIOR TO HIS/HER TRANSFER TO THE F. 01/27/23 1432<Electronically signed by Yogesh Lebron MD> Diet Diet Order/Speech Therapy: 01/25/23 12:18 Diet: Regular - General Type of Dietary Supplement:: Ensure Plus High Protein Is pt able to select menu?: Yes Diet Comments: 120 EPHP - vanilla or strawberry tid w/ meals Routine Orders/Code Status Code Status: DNRCC-A (With Intubation.) Wound(s) Scabbed area on right chest: Wound Type: Abrasion RT INNER BUTT CHEEK: Wound Type: OPEN BLISTER Left elblow: Wound Type: Skin Tear Dressing Change: Wet to Dry Dressing Right hand: Wound Type: Skin Tear Dressing Change: Dry Sterile Dressing Therapies Weight Bearing: Weight bearing as tolerated Extremity Affected:: Bilateral Lower Physical Therapy: Eval and Treat Occupational Therapy: Eval and Treat Problem/Diagnosis (1) Debility: Status: Acute Code(s): R53.81 - Other malaise (2) History of recent fall: Status: Acute Code(s): Z91.81 - History of falling (3) Rib fractures: Status: Acute Code(s): S22.49XA - Multiple fractures of ribs, unspecified side, initial encounter for closed fracture (4) Compression fracture of L1 vertebra: Status: Acute Code(s): S32.010A - Wedge compression fracture of first lumbar vertebra, initial encounter for closed fracture (5) Compression fracture of L5 vertebra: Status: Acute Code(s): S32.050A - Wedge compression fracture of fifth lumbar vertebra, initial encounter for closed fracture (6) Rhabdomyolysis: Status: Resolved Code(s): M62.82 - Rhabdomyolysis (7) Atrial fibrillation: Status: Chronic Code(s): I48.91 - Unspecified atrial fibrillation (8) Hypoxia: Status: Acute Code(s): R09.02 - Hypoxemia (9) Depression: Status: Acute Code(s): F32.A - Depression, unspecified (10) Chronic pain: Status: Chronic Code(s): G89.29 - Other chronic pain (11) Hyperlipidemia: Status: Acute Code(s): E78.5 - Hyperlipidemia, unspecified (12) Neuropathic pain: Status: Acute Code(s): M79.2 - Neuralgia and neuritis, unspecified (13) Insomnia: Status: Inactive Code(s): G47.00 - Insomnia, unspecified (14) Iron deficiency anemia: Status: Acute Code(s): D50.9 - Iron deficiency anemia, unspecified (15) Acute on chronic heart failure with preserved ejection fraction: Status: Acute Code(s): I50.33 - Acute on chronic diastolic (congestive) heart failure Plan 82 year old male with below past medical history hospitalized for weakness, rhabdomyolysis, rib fractures, lumbar compression fractures, complicated by acute on chronic heart failure with preserved ejection fraction, admitted to [facility], here for rehabilitation, strengthening, prior to discharge home alone. * Debility - PT/OT. * Pain - Tylenol 1000mg q8, Oxycodone 5mg q4h prn pain (6-10), Lidoderm topical daily. * Bowel - Miralax 17gm bid, senna/colace 2 tablets bid, Magnesium citrate 300ml po daily prn. * Adult immunization - Administer pneumonia vaccine, covid19 vaccine, flu vaccine as appropriate. * DVT prophylaxis - on Xarelto. * Atrial fibrillation - Amiodarone 200mg daily, Xarelto 20mg daily. * Hyperlipidemia - Atorvastatin 40mg qhs. * s/p kyphoplasty - Keflex 500mg q6h thru 01/12/2023. * Vitamin D deficiency - D 1.25mg per week. * BPH - Finasteride 5mg daily, Tamsulosin 0.4mg daily. * Rheumatoid Arthritis - Hold Simponi Aria, on Folic acid 2mg daily, prednisone 10mg daily prn. * Chronic heart failure with preserved ejection fraction - Aldactone 25mg daily, Furosemide 80mg daily. * Neuropathic pain - Gabapentin 300mg tid prn. * Iron deficiency anemia - Ferrex 150mg daily. * Nutrition - MVI daily, Tian 1 packet bid. 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 * Insomnia - Trazodone 100mg qhs, stable chronic long-term use, GDR not recommended. * Leg cramps - Vitamin B complex 1 capsule daily. Allergies/Procedures Done in Hospital Allergies No Known Allergies Allergy (Verified 01/21/23 07:25) Procedures: None Type of Care/Length of Stay Estimated LOS: Convalescent Care Less Than 30 days Type of Care Needed: Shelter/Assisted Living Rehab Potential: Good Prognosis: Fair Additional Orders/Day of Discharge Day of Discharge: 01/27/23 Dietary and Speech Recommendations Dietitian Recommendations/Changes: Will liberalize diet to Regular d/t variablepo intake at meals. Will continue EPHP w/ meals tid for increased nutrition if consumed. Continue Tian BID to promote wound healing of buttock - discontinue once area healed Discharge Plan Admission Admit Date/Time: 01/06/23 17:52 Primary Reason for Your Visit: Debility. Attending Provider: Yogesh Lebron Chi Primary Care Provider: Gloria Hazel Instructions Additional Instructions / Restrictions: Discharge the [facility] 01/27/2023, Home Health Care PT/OT/[place]. Discharge Orders/Prescriptions Prescriptions: New furosemide 40 mg Tablet 40 mg PO DAILY 30 Days Qty: 30 0RF polysaccharide iron complex [Ferrex 150] 150 mg iron Capsule 150 mg PO DAILY 30 Days Qty: 30 0RF sennosides-docusate sodium [Stool Softener-Stimulant Laxat] 8.6-50 mg Tablet 2 tab PO BID 30 Days Qty: 120 0RF acetaminophen 500 mg Tablet 1,000 mg PO Q8 Qty: 0 0RF baclofen 10 mg Tablet 10 mg PO TID 30 Days Qty: 90 0RF lidocaine 5 % Adhesive Patch,Medicated 1 patch topical DAILY 30 Days Qty: 30 0RF Protocol: *Topical Application Instructions APPLICATION INSTRUCTIONS: lumbar spine in painful region levofloxacin 750 mg Tablet 750 mg PO DAILY@0600 4 Days Qty: 4 0RF oxycodone 5 mg Tablet 5 mg PO Q4H PRN PRN (Reason: Pain Score 6-10) 7 Days Qty: 42 0RF Xarelto 15 mg Tablet 15 mg PO DINNER 30 Days Qty: 30 0RF Tian (with collagen) 7-7-1.5 gram Powder In Packet 1 packet PO BIDCM 30 Days Qty: 60 0RF oxycodone 5 mg tablet 5 mg PO Q4H PRN (Reason: pain) 3 Days Qty: 18 0RF Continued folic acid 1 mg tablet 2 mg PO DAILY mirtazapine 15 mg tablet 15 mg PO QHS multivitamin [Daily Multi-Vitamin] Tablet 1 tab PO DAILY finasteride 1 mg tablet 5 mg PO DAILY spironolactone 25 mg tablet 25 mg PO DAILY Qty: 30 12RF tamsulosin 0.4 MG capsule 0.4 mg PO DAILY@1800 trazodone 100 mg tablet 100 mg PO QHS vitamin E90-hrbbb acid 2,500-400 mcg tablet,disintegrating 1 tab PO DAILY Simponi ARIA 12.5 mg/mL Solution 12.5 mg IV .[id number] Patient Comments: PT GOES TO GET INJECTION EVERY 8 WEEKS CAN NOT REMEMBER LAST SHOT NEXT DUE October gabapentin 300 mg capsule 300 mg PO TID PRN PRN (Reason: NERVE PAIN) Patient Comments: Take 1 (one) Capsule by mouth three times daily, as needed prednisone 10 mg tablet 10 mg PO DAILY PRN (Reason: RA FLARE UP) Rx Instructions: As instructed ergocalciferol (vitamin D2) [Vitamin D2] 1,250 mcg (50,000 unit) Capsule 1,250 mcg PO Q7D Qty: 0 0RF atorvastatin [Lipitor] 40 mg tablet 40 mg PO QHS Qty: 90 3RF amiodarone 200 mg tablet 200 mg PO DAILY Qty: 90 3RF Discontinued aspirin 81 mg tablet,delayed release (DR/EC) 81 mg PO DAILY Qty: 1 0RF furosemide [Lasix] 40 mg tablet 80 mg PO DAILY 90 Days Qty: 180 3RF polysaccharide iron complex [Ferrex 150] 150 mg iron capsule 150 mg PO DAILY 90 Days Qty: 90 3RF Xarelto 20 mg tablet 20 mg PO DAILY Qty: 1 0RF Rx Instructions: must administer with evening meal, start on 10/22/2022 cephalexin 500 mg capsule 500 mg PO Q6H Patient Comments: takes 1 capsule four times daily. Pt hasnt started meds yet polyethylene glycol 3350 17 gram Powder In Packet 17 g PO BID Qty: 0 0RF acetaminophen 500 mg Tablet 1,000 mg PO Q8 Qty: 0 0RF lidocaine 5 % Adhesive Patch,Medicated 1 patch topical DAILY Qty: 0 0RF Protocol: *Topical Application Instructions APPLICATION INSTRUCTIONS: lumbar spine in painful region oxycodone 5 mg Tablet 5 mg PO Q4H PRN PRN (Reason: Pain Score 6-10) 1 Days Qty: 6 0RF Tian (with collagen) 7-7-1.5 gram Powder In Packet 1 packet PO BIDCM Qty: 0 0RF sennosides-docusate sodium [Stool Softener-Stimulant Laxat] 8.6-50 mg Tablet 2 tab PO BID PRN PRN (Reason: Constipation) Qty: 0 0RF Referrals / Follow Up: Gloria Hazel MD [Primary Care Provider] - 02/03/23 1:40 pm Disposition Disposition (needs filled in before D/C Order can be placed): Home Health Service (7) Atrial fibrillation Qualifiers: Atrial fibrillation type: paroxysmal Qualified Code(s): I48.0 - Paroxysmal atrial fibrillation 01/27/23 1432 <Electronically signed by Yogesh Lebron MD> Cosigner Signature (if applicable): CC: Dr. 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 Atrial fibrillation chronic History of coronary artery stent placement August 06, 2020 chronic PSVT (paroxysmal supraventricular tachycardia) chronic Abnormal CT lung screening a cute Anemia acute Diarrhea acute [facility] Work Phone: Evaluation note* Diagnosis URI, acute- Primary Acute upper respiratory infections of unspecified site Viral illness Unspecified viral infection, in conditions classified elsewhere and of unspecified site [facility] Diagnosis Onset Date Resolution Status Abnormal CT lung screening a cute Anemia acute Diarrhea acute [facility] Work Phone: Evaluation note* Diagnosis Onset Date Resolution Status Abnormal CT lung screening a cute Anemia acute Diarrhea acute Nonrheumatic aortic (valve) stenosis acute On amiodarone therapy acute 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 History of coronary artery stent placement August 06, 2020 chronic PSVT (paroxysmal supraventricular tachycardia) chronic [facility] Work Phone: Evaluation note* Diagnosis Onset Date Resolution Status Constipation acute Early satiety acute [facility] Work Phone: Evaluation note* Diagnosis Onset Date Resolution Status Early satiety acute Constipation chronic Nonrheumatic aortic (valve) stenosis acute On amiodarone therapy acute 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 PSVT (paroxysmal supraventricular tachycardia) chronic Anemia chronic Constipation chronic [facility] Work Phone: Evaluation note* Diagnosis Onset Date Resolution Status Nonrheumatic aortic (valve) stenosis acute On amiodarone therapy acute 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 PSVT (paroxysmal supraventricular tachycardia) chronic Anemia chronic Constipation chronic Anemia chronic [facility] Work Phone: Evaluation note* Diagnosis Onset Date Resolution Status Nonrheumatic aortic (valve) stenosis acute On amiodarone therapy acute 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 PSVT (paroxysmal supraventricular tachycardia) chronic Anemia chronic Constipation chronic Anemia chronic Anemia chronic [facility] Work Phone: Evaluation note* Diagnosis Onset Date Resolution Status Nonrheumatic aortic (valve) stenosis acute On amiodarone therapy acute 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 PSVT (paroxysmal supraventricular tachycardia) chronic Anemia chronic Constipation chronic Anemia chronic Anemia chronic Aortic valve stenosis, acquired acute Elevated brain natriuretic peptide (BNP) level acute Elevated troponin acute Hypoxia acute Lymphedema of both lower extremities acute 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 GERD (gastroesophageal reflux disease) chronic [facility] Work Phone: Evaluation note* Diagnosis Onset Date Resolution Status Nonrheumatic aortic (valve) stenosis acute On amiodarone therapy acute PSVT (paroxysmal supraventricular tachycardia) chronic Anemia chronic Constipation chronic Anemia chronic Anemia chronic Aortic valve stenosis, acquired acute GERD (gastroesophageal reflux disease) chronic Hypoxia resolved Anemia chronic Acute GI bleeding acute ABLA (acute blood loss anemia) acute Acute GI bleeding acute Anticoagulated acute Bilateral leg edema acute Food bolus obstruction of intestine acute Pleural effusion acute Edema chronic Hypoxia resolved [facility] Work Phone: Evaluation note* Diagnosis Onset Date Resolution Status Anemia chronic Constipation chronic Anemia chronic Anemia chronic Aortic valve stenosis, acquired acute GERD (gastroesophageal reflux disease) chronic Hypoxia resolved Anemia chronic Anticoagulated acute Bilateral leg edema acute Edema chronic Food bolus obstruction of intestine resolved Hypoxia resolved Abnormal x-ray acute Bilateral leg edema acute Paroxysmal atrial fibrillation acute Nonrheumatic aortic (valve) stenosis chronic On amiodarone therapy chroni c PSVT (paroxysmal supraventricular tachycardia) chronic [facility] Work Phone: Evaluation note* Diagnosis Onset Date Resolution Status Anemia chronic Anemia chronic Aortic valve stenosis, acquired acute GERD (gastroesophageal reflux disease) chronic Hypoxia resolved Anemia chronic Anticoagulated acute Bilateral leg edema acute Edema chronic Food bolus obstruction of intestine resolved Hypoxia resolved Abnormal x-ray acute Bilateral leg edema acute Paroxysmal atrial fibrillation acute Nonrheumatic aortic (valve) stenosis chronic On amiodarone therapy chroni c PSVT (paroxysmal supraventricular tachycardia) chronic Compression fracture acute Osteoporosis acute [facility] Work Phone: Evaluation note* Diagnosis Onset Date Resolution Status Anemia chronic Anemia chronic Aortic valve stenosis, acquired acute GERD (gastroesophageal reflux disease) chronic Hypoxia resolved Anemia chronic Anticoagulated acute Bilateral leg edema acute Edema chronic Food bolus obstruction of intestine resolved Hypoxia resolved Abnormal x-ray acute Bilateral leg edema acute Paroxysmal atrial fibrillation acute Nonrheumatic aortic (valve) stenosis chronic On amiodarone therapy chroni c PSVT (paroxysmal supraventricular tachycardia) chronic Compression fracture acute Osteoporosis acute Compression fracture acute Osteoporosis acute Steroid dependence acute [facility] Work Phone: Evaluation note* Diagnosis Rib pain on right side- Primary Chest pain, unspecified Closed fracture of multiple ribs of right side, initial encounter [facility] Diagnosis Onset Date Resolution Status Anemia chronic Anemia chronic Aortic valve stenosis, acquired acute GERD (gastroesophageal reflux disease) chronic Hypoxia resolved Anemia chronic Anticoagulated acute Bilateral leg edema acute Edema chronic Food bolus obstruction of intestine resolved Hypoxia resolved Abnormal x-ray acute Bilateral leg edema acute Paroxysmal atrial fibrillation acute Nonrheumatic aortic (valve) stenosis chronic On amiodarone therapy chroni c PSVT (paroxysmal supraventricular tachycardia) chronic Compression fracture acute Osteoporosis acute Compression fracture acute Osteoporosis acute Steroid dependence acute Anemia chronic [facility] Work Phone: Evaluation note* Diagnosis Onset Date Resolution Status Anemia chronic Anemia chronic Aortic valve stenosis, acquired acute Hypoxia resolved Anemia chronic Anticoagulated acute Bilateral leg edema acute Edema chronic Food bolus obstruction of intestine resolved Hypoxia resolved Abnormal x-ray acute Bilateral leg edema acute Paroxysmal atrial fibrillation acute Nonrheumatic aortic (valve) stenosis chronic On amiodarone therapy chroni c PSVT (paroxysmal supraventricular tachycardia) chronic Compression fracture acute Osteoporosis acute Compression fracture acute Osteoporosis acute Steroid dependence acute Anemia chronic Rhabdomyolysis acute [facility] Work Phone: Evaluation note* Diagnosis Onset Date Resolution Status Aortic valve stenosis, acquired acute Hypoxia resolved Anemia chronic Anticoagulated acute Bilateral leg edema acute Edema chronic Food bolus obstruction of intestine resolved Hypoxia resolved Abnormal x-ray acute Bilateral leg edema acute Paroxysmal atrial fibrillation acute Nonrheumatic aortic (valve) stenosis chronic On amiodarone therapy chroni c PSVT (paroxysmal supraventricular tachycardia) chronic Compression fracture acute Osteoporosis acute Compression fracture acute Osteoporosis acute Steroid dependence acute Anemia chronic Compression fracture of L1 vertebra acute Compression fracture of L5 vertebra acute Debility acute History of recent fall acute Hypoxia acute Rib fractures acute Right flank hematoma acute Rhabdomyolysis resolved Acute on chronic heart failu re with preserved ejection fraction acute Compression fracture of L1 vertebra acute Compression fracture of L5 vertebra acute Debility acute Depression acute History of recent fall acute Hyperlipidemia acute Hypoxia acute Iron deficiency anemia acute Neuropathic pain acute Rib fractures acute Atrial fibrillation chronic Chronic pain chronic Rhabdomyolysis resolved [facility] Work Phone: Evaluation note* Diagnosis Onset Date Resolution Status Anemia chronic Anticoagulated acute Bilateral leg edema acute Edema chronic Food bolus obstruction of intestine resolved Hypoxia resolved Abnormal x-ray acute Bilateral leg edema acute Paroxysmal atrial fibrillation acute Nonrheumatic aortic (valve) stenosis chronic On amiodarone therapy chroni c PSVT (paroxysmal supraventricular tachycardia) chronic Compression fracture acute Osteoporosis acute Compression fracture acute Osteoporosis acute Steroid dependence acute Anemia chronic Compression fracture of L1 vertebra acute Compression fracture of L5 vertebra acute Debility acute History of recent fall acute Hypoxia acute Rib fractures acute Right flank hematoma acute Rhabdomyolysis resolved Acute on chronic heart failu re with preserved ejection fraction acute Compression fracture of L1 vertebra acute Compression fracture of L5 vertebra acute Debility acute Depression acute History of recent fall acute Hyperlipidemia acute Hypoxia acute Iron deficiency anemia acute Neuropathic pain acute Rib fractures acute Atrial fibrillation chronic Chronic pain chronic Rhabdomyolysis resolved [facility] Work Phone: Evaluation note* Diagnosis Onset Date Resolution Status Compression fracture acute Steroid dependence acute Osteoporosis chronic Anemia chronic Debility acute Hypoxia acute Rib fractures acute Right flank hematoma acute Compression fracture of L1 vertebra resolved Compression fracture of L5 vertebra resolved History of recent fall resol franki Rhabdomyolysis resolved Acute on chronic heart failu re with preserved ejection fraction acute Debility acute Depression acute Hyperlipidemia acute Hypoxia acute Iron deficiency anemia acute Neuropathic pain acute Rib fractures acute Atrial fibrillation chronic Chronic pain chronic Compression fracture of L1 vertebra resolved Compression fracture of L5 vertebra resolved History of recent fall resol franki Rhabdomyolysis resolved Osteoporosis chronic Secondary adrenal insufficiency chronic Vitamin D deficiency chronic [facility] Work Phone: Evaluation note* Diagnosis Onset Date Resolution Status Acute on chronic heart failu re with preserved ejection fraction acute Debility acute Depression acute Hyperlipidemia acute Hypoxia acute Iron deficiency anemia acute Neuropathic pain acute Rib fractures acute Atrial fibrillation chronic Chronic pain chronic Compression fracture of L1 vertebra resolved Compression fracture of L5 vertebra resolved History of recent fall resol franki Rhabdomyolysis resolved Osteoporosis chronic Secondary adrenal insufficiency chronic Vitamin D deficiency [facility] Work Phone: Evaluation note* Diagnosis Onset Date Resolution Status Osteoporosis chronic Secondary adrenal insufficiency chronic Vitamin D deficiency chronic COVID-19 acute Hypoxia acute intermediate (current) use of anticoagulants acute Weakness acute [facility] Work Phone: Evaluation note* Diagnosis Onset Date Resolution Status Osteoporosis chronic Secondary adrenal insufficiency chronic Vitamin D deficiency chronic COVID-19 acute Hypoxia resolved Weakness resolved Anemia chronic [facility] Work Phone: Evaluation note* Diagnosis Onset Date Resolution Status COVID-19 acute Hypoxia resolved Weakness resolved Anemia [facility] Work Phone: Evaluation note* Diagnosis Procedure not carried out- Primary Procedure not carried out for other reasons [facility] Diagnosis Rib pain on right side Chest pain, unspecified documented in this encounter [facility] noteNo assessment information availableWUC [facility] Work Phone: Evaluation note* Diagnosis Aortic valve stenosis, etiology of cardiac valve disease unspecified- Primary Valvular heart disease Endocarditis, valve unspecified, unspecified cause [facility] this encounter [facility]* Diagnosis Aortic valve stenosis, etiology of cardiac valve disease unspecified documented in this encounter [facility] note* Diagnosis Nonrheumatic aortic valve stenosis- Primary Aortic valve disorders Nonrheumatic aortic (valve) stenosis [facility] Diagnosis Nonrheumatic aortic (valve) stenosis- Primary Nonrheumatic aortic (valve) stenosis [facility] Vega [facility] September 23, 2022 10:48am Note Date/Time September 23, 2022 10: 23am [facility] Medical Records Department [address] [place] [id number] H&P Exam - Hospitalist 09/23/22 1021 MR#: [id number] Acct: [id number] Name: BRYCE ANN Rep #:[id number] : 1940 [id number] From: Aisha Vega MD PCP: Dr. Gloria Hazel MD Status:REG ER Location: ED HPI - General General Date of Admission: 09/23/22 Date of Service: 09/23/22 Chief Complaint: Leg swelling HPI Narrative Jose Ann is a 81-year-old male with a history of BPH, afib, GERD, RA, CAD, heart failure with preserved ejection fraction presented to [facility] 09/23 by boss d/t soaked pants d/t draining serous fluid. 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 In the ED wound care was contacted and they recommended placing an Unna boot and outpatient follow-up. Initial plan was discharged home however he was found to be 86 to 88% on room air in the ED and was placed on O2. In the ED blood pressure 117/68 with a heart rate of 79 and 93% on room air that dipped down to 88%. Hemoglobin 8.1. Elevated troponin of 138. BNP 243. chest x-ray suggestive of mild scarring bilaterally but stable exam. Hospitalist consulted for acute hypoxia and elevated troponin. Patient was evaluated in the emergency department and reported that he has been feeling and and sluggish and fatigued for very long time and has had increased swelling in his legs over the past couple of years with worsening and increasingshortness of breath over the past 1 to 2 months. He is following with Dr. Vergara recently for anemia and is undergoing work-up and was placed on iron 2 days ago. Has rheumatoid arthritis and follows with Dr. Plasencia and also sees Dr. Farooq pain management. Reports this morning when he went to put pants on he felt his right leg hurting slightly but went to work and then noticed that there was fluid leaking everywhere and he was told to go home and decided to come to the emergency department for further evaluation. Reports poor appetite but that he has been gaining weight. Also reports a growing bump on the top of his right shoulder that has been more recent but is being monitored by his PCP. Denies other complaints at this time. [facility] Medical History Abnormal echocardiogram Abnormal EKG Anemia Appetite loss Atherosclerotic heart disease of [place] coronary artery without angina pectoris Atrial fibrillation Atrial fibrillation with rapid ventricular response Back pain Cardiology follow-up encounter Coronary artery disease Debility Easy bruising Edema Fever Fever Former smoker H/o finger stitches H/o three feet of intestines removed Hemorrhoids History of atrial fibrillation History of echocardiogram History of edema History of heart attack History of irregular heartbeat History of steroid therapy History of stress test Inflammatory arthritis Insomnia Left groin pain Left ventricular hypokinesis Left wrist pain Leg pain, bilateral Lumbar spinal stenosis Muscle spasm Osteoarthritis of left knee Paroxysmal atrial fibrillation PAT (paroxysmal atrial tachycardia) Rheumatoid arthritis Rheumatoid arthritis Right groin pain Right hip joint effusion Scrotal pain Shortness of breath on exertion SVT (supraventricular tachycardia) Syncope Wears glasses Home Medications tamsulosin 0.4 mg capsule 0.4 mg PO DAILY@1800 Retention 07/18/20 [History Last Taken 08/11/20 18:32] Blood pressue cuff #1 ea 09/28/20 [Rx Last Taken Unknown] folic acid 1 mg tablet 2 mg PO DAILY 09/28/20 [History Last Taken Unknown] finasteride 1 mg tablet 5 mg PO DAILY 12/30/20 [History Last Taken Unknown] miscellaneous medical supply 1 ea miscellaneous DIRECTED #1 ea 12/30/20 [Rx Last Taken Unknown] prednisone 5 mg tablet 10 mg PO PRN PRN Spasms 12/30/20 [History Last Taken Unknown] multivitamin (Daily Multi-Vitamin tablet) 1 tab PO DAILY 01/01/21 [History Last Taken Unknown] trazodone 100 mg tablet 150 mg PO QHS 05/09/21 [History Last Taken Unknown] atorvastatin 40 mg tablet (Lipitor) 40 mg PO QHS Cholesterol #90 tabs 10/04/21 [Rx Last Taken Unknown] amiodarone 200 mg tablet 200 mg PO DAILY heart rate #90 tabs 10/08/21 [Rx Last Taken Unknown] aspirin 81 mg tablet,delayed release 81 mg PO DAILY #1 TAB 01/10/22 [Rx Last Taken Unknown] mirtazapine 15 mg tablet 15 mg PO QHS 01/10/22 [History Last Taken Unknown] vitamin B12 2,500 mcg-folic acid 400 mcg disintegrating tablet 1 tab PO DAILY 01/10/22 [History Last Taken Unknown] cyclobenzaprine 10 mg tablet 10 mg PO DAILY PRN muscle spasms 02/07/22 [History Last Taken Unknown] tramadol 50 mg tablet 50 mg PO TID PRN Pain 02/07/22 [History Last Taken Unknown] gabapentin 100 mg tablet 300 mg PO DAILY 05/31/22 [History Last Taken Unknown] golimumab 12.5 mg/mL intravenous solution (Simponi ARIA) mg IV 05/31/22 [History Last Taken Unknown] rivaroxaban 20 mg tablet (Xarelto) 20 mg PO DAILY #90 tabs 06/13/22 [Rx Last Taken Unknown] buprenorphine 10 mcg/hour weekly transdermal patch 1 patch transdermal QWEEK 09/20/22 [History Last Taken Unknown] furosemide 40 mg tablet (Lasix) 40 mg PO DAILY 09/20/22 [History Last Taken Unknown] polysaccharide iron complex 150 mg iron capsule (Ferrex) 150 mg PO DAILY 90 days#90 caps 09/21/22 [Rx Last Taken Unknown] Allergy/AdvReac Type Severity Reaction Status Date / Time No Known Allergies Allergy Verified 09/23/22 07:10 Family History Father CVA (cerebral vascular accident) Brother CAD (coronary artery disease) CABG X 3 Mother CVA (cerebral vascular accident) Grandfather Cancer prostate Surgical History H/O colonoscopy H/O umbilical hernia repair History of cardiac catheterization History of coronary artery stent placement (08/06/20) History of coronary artery stent placement History of lumbar surgery Hx of colectomy Hx of laminectomy Hx of transurethral resection of prostate S/P appendectomy S/P cataract surgery S/P hemorrhoidectomy S/P inguinal hernia repair S/P laparoscopic cholecystectomy S/P left colectomy S/P rotator cuff repair S/P vasectomy Social History household members: none Smoking Status: Former smoker how long ago did patient quit smokin years ago alcohol intake: never substance use type: does not use diet: low salt caffeine: Yes Type: coffee Number of servings: 4 ROS ROS Narrative General: Denies fever/chills, has had some weight gain but poor appetite HENT: Denies headache, some nasal congestion, denies sore throat EYES: Denies changes in vision Resp: Increasing shortness of breath over past couple months Cardiac: Denies chest pain GI: Denies abdominal pain, denies changes in bowel, denies nausea/vomiting, poorp.o. : Denies changes in urination Extremity: Worsening swelling in his extremities for several years but more so over the past 2 months MSK: Feels sluggish and fatigued Neuro: Denies any numbness/tingling Heme: Denies any changes in bleeding Skin: Skin changes on legs Psychiatric: Feeling sluggish and blocked Vital Signs Vital Signs Vital Signs: 09/23/22 07:11 09/23/22 07:11 09/23/22 08:11 Temperature 98.4 F Temperature Source Temporal Pulse Rate 79 Respiratory Rate 18 16 Respiratory Effort Normal Non-Labored Respiratory Pattern Normal Blood Pressure 117/68 Blood Pressure Mean 84 Pulse Ox 93 88 Oxygen Delivery Method Room Air Room Air 09/23/22 08:13 09/23/22 09:59 Temperature 98.4 F Temperature Source Oral Pulse Rate 71 Respiratory Rate 16 12 Respiratory Effort Respiratory Pattern Blood Pressure 157/71 H Blood Pressure Mean 99 Pulse Ox 99 100 Oxygen Delivery Method Nasal Cannula Room Air Weight Weight: 71.9 kg Body Mass Index (BMI) 27.1 Physical Exam Narrative General: Alert, oriented HEENT: Atraumatic, normocephalic Eyes: Anicteric, normal conjunctiva, extraocular movements grossly intact Neck: Supple Respiratory: Diminished, normal respiratory effort Cardiovascular: Regular rate and rhythm GI: Soft, nontender, nondistended Extremities: 4+ bilateral lower extremity edema, tops of feet blottable and feelfilled with fluid, does have dusky fingers and clubbing, also chronic knuckle deforminty consistent with RA Musculoskeletal: Moving all extremities Neuro: No overt focal neurological deficits Skin: Changes on left lower extremity, right lower extremity is wrapped with no drainage Psych: Cooperative Results Lab / Micro Data Result Diagrams: 09/23/22 08:08 09/23/22 08:08 Labs: Laboratory Results - last 24 hr 09/23/22 08:08: WBC 5.8, RBC 2.93 L, Hgb 8.1 L, Hct 27.0 L, MCV 92.2, MCH 27.6, MCHC 30.0 L, RDW Std Deviation 55.1 H, RDW Coeff of Jaciel 16.6 H, Plt Count 316, MPV 9.0, Immature Gran % (Auto) 0.300, Neut % (Auto) 69.7, Lymph % (Auto) 15.8 L, [place] % (Auto) 11.1 H, Eos % (Auto) 2.2, Baso % (Auto) 0.9, Absolute Neuts (auto) 4.1, Absolute Lymphs (auto) 0.92, Nucleated RBC % 0 09/23/22 08:08: Sodium 138, Potassium 3.6, Chloride 105, Carbon Dioxide 31.0, Anion Gap 2 L, BUN 15, Creatinine 0.94, Estim Creat Clear Calc 53.36, Est GFR (MDRD) Af Amer 99, Est GFR (MDRD) Non-Af 82, BUN/Creatinine Ratio 15.9, Glucose 104, Calcium 8.2 L, Total Bilirubin 0.90, AST 29, ALT 28, Alkaline Phosphatase 89, Troponin I High Sens 138 H*, Total Protein 5.9 L, Albumin 2.9 L, Globulin 3.0, Albumin/Globulin Ratio 1.0 09/23/22 08:08: B-Natriuretic Peptide 243.4 H Radiology Impression Chest X-Ray 09/23/22 07:53 IMPRESSION: Stable examination. Findings suggestive of mild scarring bilaterally. Electronically Signed: Nicko Yoon MD at 8:47 EDT , Assessment & Plan Assessment/Plan (1) Hypoxia: (2) Elevated troponin: (3) Elevated brain natriuretic peptide (BNP) level: PLAN: Plan #Acute hypoxia -88% on room air in the ED which improved with nasal cannula -Suspect this is multifactorial, does appear to have some overload suggesting cor pulmonale but no overt edema seen on chest x-ray. Is known to have heart failure with preserved ejection fraction. -Chest x-ray suggestive of mild scarring bilaterally but stable exam, suspect there is an additional etiology in addition to fluid overload -BNP 243 with no previous for comparison -Last echo 01/27/2022 with an EF of 55%, mild to moderate mitral valve insufficiency, RVSP of 35, stage II diastolic dysfunction -We will repeat echocardiogram -Does take Lasix 40 mg daily, will start IV dosing -I's and O's, daily weights -We will check CT chest to further characterize -We will check COVID and flu -May need to follow-up with a poiser on discharge -Very low suspicion for PE I feel there is more likely other etiologies, additionally per documentation he is on Xarelto, will need to confirm this -Reports remote history of smoking, quit 52 years ago. Does not have a poiser -No wheezing, do not suspect COPD, can add albuterol as needed #Elevated troponin -138 in the ED, will cycle -EKG NSR, 83HR, RBBB -Cards called in ED and agreed w/ ASA and trending troponins #HFpEF -Grade II diastolic dysfunction on echo in 2021 -BNP 243 and appears peripherally overloaded -Repeat echo #Normocytic anemia -8.1 in the ED, 2 days ago was 8.4 and 9.1 on 09/12. Prior to that baseline seenbetween and -FOBT submitted yesterday on outpatient basis was negative -Follows with Dr. Short, will continue iron supplementation #Hx cad with stent 08/06/2020 -PCI of OM2 with GAGE in 2020 but unsuccessful PCI of SEWER DIGGER of LAD -Has troponin of 138 however no chest pain -Continue aspirin -If chest pain develops or troponin significantly elevates will consult cardiology #Chronic pain -Continue buprenorphine patch #pafib -Continue amiodarone -Continue Xarelto #RA -Pt reports he follows w/ rheum as outpt -Takes pred PRN, not presently taking #BLE edema and weeping -Unna boot -Wound care consult #DVT ppx: Continue Xarelto, if not presently on xeralto will need to add dvt ppx Aisha Vega MD Time spent in the patient's overall evaluation,decision-making process, review of diagnostic data, adjustment of management, discussion with other providers, nursing nursing and ancillary staff involved in patient's care documentation, 60minutes Charges/Coding Visit Charges Inpatient E&M: 98274 Init Hosp L2 09/23/22 1048 <Electronically signed by Aisha Vega MD> Cosigner Signature (if applicable): CC: Dr. Gloria Hazel MD; Dr. Aisha Vega MD~ Signed [facility] Work Phone: History and physical note Author Mi Gregory [facility] January 04, 2023 10:04pm Note Date/Time January 04, 2023 9:3 3pm [facility] Medical Records Department [address] [place] [address] H&P Exam - Hospitalist 01/04/232124 MR#: [id number] Acct: [id number] Name: BRYCE ANN Rep #:[id number] : 1940 82 From: Mi Gregory MD PCP: Dr. Gloria Hazel MD Status:ADM IN Location: [place] [id number] HPI - General General Date of Admission: 01/04/23 Date of Service: 01/04/23 Chief Complaint: Fall, debility. HPI Narrative The patient is an 82 y/o M w/ PMHx: BPH, HTN, HLD, Anxiety and Depression, Diastolic CHF, PAF, Rheumatoid arthritis, CAD with PCI x 2, Chronic back pain with lumbar stenosis s/p kyphoplasty prior on buprenorphine patch, Former tobacco use, Chronic peripheral edema, Chronic normocytic anemia/Fe deficiency anemia reported to be refractory to oral Fe on injectafer following with Dr. Short hematology w/ Hx GI bleed w/ gastric AVM who presents to the [facility] ED on 01/04/23 with history of fall approximately 1 week prior to current presentation with unfortunately rib fractures at that time with a follow-up the day prior to current presentation with pain management with kyphoplasty performed and unfortunately when he returned home and was walking to his house he tripped and attempted to sit down landing on his buttock and was unable to get off the floorat that time and stayed there all evening reportedly urinating all over himself with no specific trauma to the head or any loss of consciousness with significant weakness prompting eventual EMS call once he was found and transition to the ED for evaluation. He does report significant lumbar back pain since his recent fall and being on the ground initially 10 out of 10 in severity, sharp and aching with any movement and dull throbbing constantly even when not moving now down to 8 out of 10. Workup in the ED included T98.9, heartrate 81, BP 134/69, respiratory rate 16, initially 95% on room air however aftermedications desaturated to 78% on room air with improvement to 100% on 2 L nasalcannula, CBC with WC 8.9, hemoglobin 12.9, MCV 95, platelet 176 without marked shift, CMP with glucose 112, T. bili 0.9, AST/LT 101/49, alk phos 193, total creatinine kinase 2433, urinalysis with urine protein 30, ketone 15 otherwise unremarkable, chest x-ray with mild segmental atelectasis left lower lobe possibly a tiny pleural effusion, CT of the brain with mild atrophy and advancedperiventricular white matter ischemic change, CT abdomen and pelvis without contrast with left nephrolithiasis without any evidence of renal obstruction or ureteral calculus, nonspecific ileus with diffuse fecal retention in the colon and rectal impaction, old compression fracture L1 and L5 status post kyphoplasty, mild wedging of the superior endplates L2 and L3 of uncertain chronicity, troponin 55. In the ED patient administered Zofran 4 mg IV x 1, morphine 4 mg IV x 1 as well as 1 L normal saline. [facility] Medical History (Updated 01/04/23 @ 22:[address] Mi Gregory MD) Anemia Atherosclerotic heart disease of [place] coronary artery without angina pectoris Atrial fibrillation BPH (benign prostatic hyperplasia) Chronic edema Coronary artery disease Former smoker GERD (gastroesophageal reflux disease) History of heart attack History of stress test Lumbar spinal stenosis PAT (paroxysmal atrial tachycardia) Rheumatoid arthritis SVT (supraventricular tachycardia) Wears glasses Home Medications tamsulosin 0.4 mg capsule 0.4 mg PO DAILY@1800 Retention 07/18/20 [History Last Taken 10/20/22] folic acid 1 mg tablet 2 mg PO DAILY 09/28/20 [History Last Taken 10/20/22] finasteride 1 mg tablet 5 mg PO DAILY 12/30/20 [History Last Taken 10/20/22] multivitamin (Daily Multi-Vitamin tablet) 1 tab PO DAILY Check with primary doctor 01/01/21 [History Last Taken 10/20/22] aspirin 81 mg tablet,delayed release 81 mg PO DAILY #1 TAB 01/10/22 [Rx Last Taken 10/20/22] mirtazapine 15 mg tablet 15 mg PO QHS 01/10/22 [History Last Taken 10/19/22] vitamin B12 2,500 mcg-folic acid 400 mcg disintegrating tablet 1 tab PO DAILY Check with primary doctor 01/10/22 [History Last Taken 10/19/22] golimumab 12.5 mg/mL intravenous solution (Simponi ARIA) 12.5 mg IV .[id number] 05/31/22 [History Last Taken Unknown] buprenorphine 10 mcg/hour weekly transdermal patch 1 patch transdermal QWEEK pain 09/20/22 [History Last Taken 10/14/22] atorvastatin 40 mg tablet (Lipitor) 40 mg PO QHS Cholesterol #90 tabs 10/07/22 [Rx Last Taken 10/19/22] gabapentin 300 mg capsule 300 mg PO TID PRN PRN NERVE PAIN 10/20/22 [History Last Taken 10/20/22] rivaroxaban 20 mg tablet (Xarelto) 20 mg PO DAILY anticoagulation #1 TAB 10/21/22 [Rx Last Taken 10/19/22] amiodarone 200 mg tablet 200 mg PO DAILY heart rate #90 tabs 10/28/22 [Rx Last Taken Unknown] furosemide 40 mg tablet (Lasix) 80 mg (2 x 40 mg) PO DAILY 90 days #180 tabs 11/14/22 [Rx Last Taken Unknown] spironolactone 25 mg tablet 25 mg PO DAILY #30 tabs 11/14/22 [Rx Last Taken Unknown] trazodone 100 mg tablet 100 mg PO QHS Check with primary doctor 11/14/22 [History Last Taken Unknown] hydrocodone-acetaminophen 5-325mg 5mg-325mg 1 tab PO Q6H 11/25/22 [History Last Taken Unknown] polysaccharide iron complex 150 mg iron capsule (Ferrex) 150 mg PO DAILY 90 days#90 caps 12/14/22 [Rx Last Taken Unknown] prednisone 10 mg tablet 10 mg PO DAILY PRN RA FLARE UP 01/04/23 [History Last Taken Unknown] Allergy/AdvReac Type Severity Reaction Status Date / Time No Known Allergies Allergy Verified 01/04/23 18:20 Family History Father CVA (cerebral vascular accident) Brother CAD (coronary artery disease) CABG X 3 Mother CVA (cerebral vascular accident) Grandfather Cancer prostate Surgical History H/O colonoscopy H/O umbilical hernia repair History of cardiac catheterization History of coronary artery stent placement (08/06/20) History of coronary artery stent placement History of lumbar surgery Hx of colectomy Hx of laminectomy Hx of transurethral resection of prostate S/P appendectomy S/P cataract surgery S/P hemorrhoidectomy S/P inguinal hernia repair S/P laparoscopic cholecystectomy S/P left colectomy S/P rotator cuff repair S/P vasectomy Social History household members: none Smoking Status: Former smoker how long ago did patient quit smokin years ago alcohol intake: never substance use type: does not use diet: low salt caffeine: Yes Type: coffee Number of servings: 4 ROS ROS Narrative Admission Review of Systems: CONSTITUTIONAL: No weight loss, fever, chills, + weakness or fatigue. HEENT: Eyes: No visual loss, blurred vision, double vision or yellow sclerae. Ears, Nose, Throat: No hearing loss, sneezing, congestion, runny nose or sore throat. SKIN: + coccyx stage I decub, BL LE venous stasis changes, various staged ecchymoses, status post recent lumbar laminectomy. CARDIOVASCULAR: No chest pain, chest pressure or chest discomfort, palpitations,edema, orthopnea, syncopal events. RESPIRATORY: No shortness of breath, cough or sputum, wheezing, hemoptysis. GASTROINTESTINAL: + anorexia, nausea. No vomiting or diarrhea, abdominal pain, melena, BRBPR. GENITOURINARY: No dysuria, frequency, urgency or retention. NEUROLOGICAL: + Recent lumbar laminectomy s/p fall w/ notable general debility. No headache, dizziness, syncope, paralysis, ataxia, numbness or tingling in the extremities, focal weakness, change in bowel or bladder control, seizure. MUSCULOSKELETAL: + muscle, back pain, joint pain or stiffness. HEMATOLOGIC: + anemia, easy bleeding and bruising. LYMPHATICS: No enlarged nodes. No history of splenectomy. PSYCHIATRIC: + history of depression or anxiety. ENDOCRINOLOGIC: No reports of sweating, cold or heat intolerance. No polyuria orpolydipsia. ALLERGIES: No history of asthma, hives, eczema or rhinitis. Vital Signs Vital Signs Vital Signs: 01/04/23 18:20 01/04/23 18:20 01/04/23 18:39 Temperature 98.9 F Temperature Source Oral Pulse Rate 81 Respiratory Rate 16 Respiratory Effort Normal Non-Labored Blood Pressure 134/69 H Blood Pressure Mean 90 Pulse Ox 95 Oxygen Delivery Method Room Air Oxygen Flow Rate (L/min) 01/04/23 19:30 01/04/23 19:44 01/04/23 20:19 Temperature Temperature Source Pulse Rate 74 81 Respiratory Rate 16 19 H Respiratory Effort Blood Pressure 125/64 H 125/59 H Blood Pressure Mean 84 81 Pulse Ox 78 99 100 Oxygen Delivery Method Room Air Nasal Cannula Nasal Cannula Oxygen Flow Rate (L/min) 2 2 01/04/23 19:33 Temperature Temperature Source Pulse Rate Respiratory Rate Respiratory Effort Blood Pressure Blood Pressure Mean Pulse Ox 78 Oxygen Delivery Method Room Air Oxygen Flow Rate (L/min) Physical Exam Narrative Physical Examination: General: Awake, alert, oriented x 3 and cooperative, laying in the ED bed, T, uncomfortable appearing, reports his pain currently out of 10 in the lumbar region. Skin: Normal color, normal turgor, no icterus, no cyanosis except for early stage coccyx/decubitus ulcer, bilateral lower extremity venous stasis skin changes, very staged ecchymoses with recent falls, status post recent lumbar laminectomy. HEENT: AT/NC, EOMI, PERRLA, dry MM, no carotid bruits or JVD noted. Lungs: Diminished, good bases, appropriate effort, no rales, ronchi or wheezing. Heart: Currently regular rate and rhythm; no gallop, rub audible, + SM. Abdomen: Soft, NTTP, ND, hyperactive BS, no HSM. Extremities: No cyanosis, no clubbing, significant pedal to proximal knee 3+ pitting edema which she reports is chronic. Neurological: Patient awake, alert, oriented as noted, cognitive function intact; pupils equally reactive to light and accommodation, cranial nerves grossly normal, moving all 4 extremities except extremely limited given recent fall as well as recent lumbar compression fractures status post laminectomy, no specific focal deficits, strength severely globally decreased. Psychiatric: Affect appears fatigued, uncomfortable, no acute evidence of depressive or anxiety feelings but does have underlying history. Results Lab / Micro Data 01/04/23 19:20 01/04/23 19:20 Labs: Laboratory Results - last 24 hr 01/04/23 19:20: WBC 8.9, RBC 4.17 L, Hgb 12.9 L, Hct 39.6 L, MCV 95.0 H, MCH 30.9, MCHC 32.6, RDW Std Deviation 75.3 H, RDW Coeff of Jaciel 21.7 H, Plt Count 176, MPV 8.7, Immature Gran % (Auto) 0.400, Neut % (Auto) 78.7 H, Lymph % (Auto)9.4 L, [place] % (Auto) 11.0 H, Eos % (Auto) 0.3, Baso % (Auto) 0.2, Absolute Neuts(auto) 7.0, Absolute Lymphs (auto) 0.84, Nucleated RBC % 0, Differential CommentSCANNED, Sodium 137, Potassium 3.7, Chloride 100, Carbon Dioxide 31.0, Anion Gap6, BUN 8, Creatinine 0.84, Est GFR (MDRD) Af Amer 112, Est GFR (MDRD) Non-Af 93,BUN/Creatinine Ratio 9.5 L, Glucose 112 H, Calcium 8.6, Total Bilirubin 0.90, AST 101 H, ALT 49, Alkaline Phosphatase 193 H, Total Creatine Kinase 2433 H, Troponin I High Sens 55, Total Protein 6.1 L, Albumin 3.0 L, Globulin 3.1, Albumin/Globulin Ratio 1.0 01/04/23 20:10: Urine Color Yellow, Urine Clarity Clear, Urine pH 8.0, Ur Specific [place] 1.010, Urine Protein 30 H, Urine Glucose (UA) Normal, Urine Ketones 15 H, Urine Occult Blood Negative, Urine Nitrite Negative, Urine Bilirubin Negative, Urine Urobilinogen Normal, Ur Leukocyte Esterase Negative, Urine RBC 0 SEEN, Urine WBC 0 SEEN, Ur Squamous Epith Cells 0 SEEN, Urine Bacteria 0 SEEN, Urine Mucus 0 SEEN Radiology Impression Abdomen/Pelvis CT 01/04/23 19:11 IMPRESSION: Left nephrolithiasis without evidence for renal obstruction or ureteral calculus. Nonspecific ileus with diffuse fecal retention in colon and rectal impaction. Old compression fractures of L1 and L5 status post kyphoplasty.. Mild wedging of superior endplates of L2 and L3 of uncertain chronicity. If concern for acute fracture MRI recommended Other findings as above Electronically Signed: Ra Polo MD at 20:47 EDT , Brain CT 01/04/23 19:42 IMPRESSION: Mild atrophy and advanced periventricular white matter ischemic change. No acute bleed. If concern for acute infarct MRI recommended Electronically Signed: Ra Polo MD at 20:30 EDT Reading Location ID and State: [place] / [place] , Service support , Chest X-Ray 01/04/23 19:50 IMPRESSION: Mild subsegmental atelectasis in the left lower lobe and possible tiny pleural effusion Electronically Signed: Ra Polo MD at 20:59 EDT Reading Location ID and State: [place] / [place] , Service support , Assessment & Plan Assessment/Plan (1) Rhabdomyolysis: PLAN: Plan The patient is an 82 y/o M w/ PMHx: BPH, HTN, HLD, Anxiety and Depression, Diastolic CHF, PAF, Rheumatoid arthritis, CAD with PCI x 2, Chronic back pain with lumbar stenosis s/p kyphoplasty prior on buprenorphine patch, Former tobacco use, Chronic peripheral edema, Chronic normocytic anemia/Fe deficiency anemia reported to be refractory to oral Fe on injectafer following with Dr. Short hematology w/ Hx GI bleed w/ gastric AVM who presents to the [facility] ED on 01/04/23 with history of fall approximately 1 week prior to current presentation with unfortunately rib fractures at that time with a follow-up the day prior to current presentation with pain management with kyphoplasty performed and unfortunately when he returned home and was walking to his house he tripped and attempted to sit down landing on his buttock and was unable to get off the floorat that time and stayed there all evening reportedly urinating all over himself with no specific trauma to the head or any loss of consciousness with significant weakness prompting eventual EMS call once he was found and transition to the ED for evaluation. #1. Mechanical fall complicated by recent fall of with right-sided rib fractures and chronic debility with lumbar compression fractures known previously status post recent kyphoplasty with associated intractable lumbar back pain following recent fall with associated acute rhabdomyolysis and adult FTT: Will admit to medical surgical floor, maintain on fall precautions, continue judicious hydration given underlying history of CHF, monitor for fluid overload, will trend creatinine kinase, monitor urine output, monitor both renaland liver function, maintain on fall precautions, offload and frequent positional changes given recent intervention to the back, PT/OT/case management consulted for discharge planning as patient likely would benefit from consideration of skilled at this time. #2. History of GI bleed: History of recent 09/2022 admission with GI bleed at that time, workup notable for gastric AVM, evaluated by hematology with noted refractory status to oral iron eventually placed on IV injectafer as noted, eventually allowed to resume patient chronic anticoagulant therapy, will continue closely monitor. #3. Chronic primarily normocytic anemia, currently mildly elevated MCV/macrocytic: Admission hemoglobin 12.9, baseline hemoglobin more recently similar 11-12 range, most recently 12/29/2022 hemoglobin 12.6, will continue to trend. #4. Chronic pain syndrome secondary to chronic back pain status post recent kyphoplasty with lumbar compressions: Patient with chronic debility, associated with his chronic back pain, prior was on chronic buprenorphine patch but from records appears to recently have been transitioned to oral norco instead, will continue as well as chronic gabapentin regimen with breakthrough regimen as needed. Encourage continued follow-up outpatient with Dr. Rust as previously arranged following recent procedure. Given his acute presentation with worsenedpain secondary to #1 will have as needed oxycodone and overlap breakthrough IV pain regimen also. #5. Chronic diastolic CHF: As noted given presentation will judiciously hydrateand closely monitor for any overload, will continue aspirin, Xarelto, metolazone, spironolactone, Lasix, statin therapy, not on beta-santiago per review ofcurrent list. Pending repeat AM labs and status upon re-evaluation may certainlyhold diuretics if needed given hydration needs with #1 as noted. #6. PSVT/PAF: We will continue patient home Xarelto regimen in addition to chronic amiodarone regimen. #7. Chronic peripheral edema: Will place snug jeremiah wraps with lower extremity elevation as lumbar back allows given recent intervention with kyphoplasty. #8. CAD: s/p PCI x 2, will continue aspirin and Xarelto home regimen, continue statin, not on JEREMIAH inhibitor/ARB nor beta-santiago therapy. #9. Hypertension: Continue home regimen including metolazone, spironolactone, Lasix with hold parameters as needed, PRN hydralazine. #10. Hyperlipidemia: Not on statin therapy, defer to outpatient. #11. Anxiety and depression: Will continue patient home mirtazapine regimen. #12. BPH: We will continue patient home Flomax and finasteride regimen. #13. Rheumatoid arthritis: Patient is on chronic golimumab outpatient and chronic low-dose steroids PRN only per current medication list but clarifying. #14. Former tobacco use: Encourage continued tobacco cessation. #15. DVT prophylaxis: We will continue patient home Xarelto regimen. #16. CODE status: Patient GIA is his daughter who is present and living will is currently in place. Discussed CODE status at length including difference between FULL code, DNR-CCA and DNR-CC status. Following discussions about the differences in these status, requested DNR-CCA, no intubation. His daughter and him per their report had actually not discussed these items prior. Encouraged them to openly discuss. Advanced Care Planning Face to Face Time: 16 minutes. Charges/Coding Visit Charges Inpatient E&M: 84985 Init Hosp L3 Procedures Hospitalists Procedures: 18711 Advncd Care Plan 30 Min 01/04/23 2204 <Electronically signed by Mi Gregory MD> Cosigner Signature (if applicable): CC: Dr. Gloria Hazel MD; Dr. Mi Gregory MD~ Signed [facility] Work Phone: Hospital Discharge instructionsAmbulatory Orders* Endocrinology Location: None Selected * Pain Management Location: None Selected [facility] Work Phone: Hospital Discharge instructionsAdditional Instructions Your evaluation in the Emergency Department did not reveal any acute reason for admission. However, I want to emphasize that you may be early in the course of a disease process or illness even if it is not present. For this reason you should follow-up within 24 hours for reevaluation with either your primary care physician or if necessary back here in the Emergency Department. You should return to the Emergency Department immediately if your symptoms worsen or new symptoms develop.[facility] Work Phone: Reason for referral (narrative)* Diagnostic Procedure Only (Urgent) - Closed Specialty Diagnoses / Procedures Referred By Contac t Referred To Contact XR IMAGING Diagnoses Rib pain on right side Procedures XR RIBS/CHEST 3V AP RIB/OBLS/CXR RIGHT RADEX RIBS UNI W/POSTEROANT CH MINIMUM 3 VIEWS María Botello APRN.CUSTOM PROTECTION OFFICER [id number] [place] [phone] Xr Imaging Referral ID Status Reason Start Date Expiration Date V isits Requested Visits Authorized [id number] Closed Auto-Generate d Referral 12/27/2022 01/26/2024 1 1 [facility] for referral (narrative)* Diagnostic Procedure Only (Urgent) - Closed Specialty Diagnoses / Procedures Referred By Contac t Referred To Contact XR IMAGING Diagnoses Rib pain on right side Procedures XR RIBS/CHEST 3V AP RIB/OBLS/CXR RIGHT RADEX RIBS UNI W/POSTEROANT CH MINIMUM 3 VIEWS María Botello APRN.CUSTOM PROTECTION OFFICER [address] [place] [address] [place] [address] Referral ID Status Reason Start Date Expiration Date V isits Requested Visits Authorized [id number] Closed Auto-Generate d Referral 12/27/2022 01/26/2024 1 1 [facility] for referral (narrative)No reason for referral information availableW[facility] Work Phone: Reason for visit Narrative* Diagnostic Procedure Only (Urgent) - Closed Specialty Diagnoses / Procedures Referred By Contac t Referred To Contact XR IMAGING Diagnoses Rib pain on right side Procedures XR RIBS/CHEST 3V AP RIB/OBLS/CXR RIGHT RADEX RIBS UNI W/POSTEROANT CH MINIMUM 3 VIEWS María Botello APRN.CUSTOM PROTECTION OFFICER [id number] [place] [phone] [place] [address] Referral ID Status Reason Start Date Expiration Date V isits Requested Visits Authorized [id number] Closed Auto-Generate d Referral 12/27/2022 01/26/2024 1 1 [facility] for visit Narrative* Auth/Cert (Routine) Specialty Diagnoses / Procedures Referred By Contac t Referred To Contact Diagnoses Valvular heart disease Valvular heart disease [I38] Procedures L HRT CATH W/NJX L VENTRICULOGRAPHY IMG S&I LEFT HEART CATH INTRAPROCEDURAL INJECT W/ LEFT VENTRICULOGRAPHY IMAGE SUPERVISION/INTERPRETATION [address] [address] Referral ID Status Reason Start Date Expiration Date Visits Re quested Visits Authorized [id number] 1 1 [facility] Summary Purpose Family History Relationship Condition Age at Onset Recorded Date/T bogdan father Cerebrovascular accident (CVA) Unknown brother Coronary artery disease Unknown mother Cerebrovascular accident (CVA) Unknown grandfather Malignant neoplasm Unknown Advance Directives Advance Directive Response Recorded Date/ Time Name of Medical Power of Reference Assistant RONI HANNA July 23, 2021 12:36pm Advance Directives Yes March 27, 2018 10:12am Living Will Yes August 02, 2021 6:57pm Power of Reference Assistant Yes August 02 6:57pm Documents on File 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 October 31, 2021 8:48am Advance Directives Yes March 27, 2018 10:12am Living Will Yes October 31, 2021 8 :48am Power of Reference Assistant Yes October 31, 2021 8:48am Advance Directive Response Recorded Date/ Time Advance Directives Yes March 27, 2018 9:12am Living Will Yes October 31, 2021 7 :48am Power of Reference Assistant Yes October 31, 2021 7:48am Advance Directive Response Recorded Date/ Time Advance Directives Yes March 27, 2018 10:12am Living Will Yes October 31, 2021 8 :48am Power of Reference Assistant Yes October 31, 2021 8:48am Advance Directive Response Recorded Date/ Time Name of Medical Power of Reference Assistant michael arnold September 23, 2022 7:11am Advance Directives Yes March 27, 2018 10:12am Living Will Yes September 23, 2022 7:11am Power of Reference Assistant Yes September 23 7:11am Advance Directive Response Recorded Date/ Time Name of Medical Power of Reference Assistant Roni Hanna September 23, 2022 11:44am Advance Directives Yes March 27, 2018 10:12am Living Will Yes September 23, 2022 11:44am Power of Reference Assistant Yes September 23 11:44am Advance Directive Response Recorded Date/ Time Name of Medical Power of Reference Assistant Roni Hanna September 23, 2022 11:44am Name of Medical Power of Reference Assistant Roni Hanna October 20, 2022 2:59pm Advance Directives Yes March 27, 2018 10:12am Living Will Yes October 20, 2022 2 :59pm Power of Reference Assistant Yes October 20, 2022 2:59pm Advance Directive Response Recorded Date/ Time Name of Medical Power of Reference Assistant Roni Hanna September 23, 2022 11:44am Name of Medical Power of Reference Assistant Roni Hanna October 20, 2022 2:59pm Advance Directives Yes March 30, 2020 5:31pm Living Will Yes October 20, 2022 2 :59pm Power of Reference Assistant Yes October 20, 2022 2:59pm Documents on File 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 Advance Directive(s) 08/13/2020 3:13 PM Advance Directive Response Recorded Date/ Time Name of Medical Power of Reference Assistant Roni Hanna September 23, 2022 11:44am Name of Medical Power of Reference Assistant Roni Hanna October 20, 2022 2:59pm Advance Directives Yes March 30, 2020 5:31pm Living Will No January 04, 2023 6:24pm Power of Reference Assistant No January 04 6:24pm Advance Directive Response Recorded Date/ Time Name of Medical Power of Reference Assistant Roni Hanna September 23, 2022 11:44am Name of Medical Power of Reference Assistant Roni Hanna October 20, 2022 2:59pm Name of Medical Power of Reference Assistant Roni Hanna January 09, 2023 3:55pm Name of Medical Power of Reference Assistant RONI HANNA- DTR. January 21, 2023 7:29am Advance Directives Yes March 30, 2020 5:31pm Living Will Yes January 21 7:29am Power of Reference Assistant Yes January 21 023 7:29am Advance Directive Response Recorded Date/ Time Name of Medical Power of Reference Assistant Roni Hanna October 20, 2022 2:59pm Name of Medical Power of Reference Assistant Roni Hanna January 09, 2023 3:55pm Name of Medical Power of Reference Assistant RONI HANNA- DTR. January 21, 2023 7:29am Advance Directives Yes March 30, 2020 5:31pm Living Will Yes January 21 7:29am Power of Reference Assistant Yes January 21 023 7:29am Advance Directive Response Recorded Date/ Time Name of Medical Power of Reference Assistant Roni Hanna January 09, 2023 3:55pm Name of Medical Power of Reference Assistant RONI HANNA- DTR. January 21, 2023 7:29am Advance Directives Yes March 30, 2020 5:31pm Living Will Yes January 21 7:29am Power of Reference Assistant Yes January 21 023 7:29am Advance Directive Response Recorded Date/ Time Name of Medical Power of Reference Assistant Roni Hanna January 09, 2023 2:55pm Advance Directives Yes March 30, 2020 4:31pm Living Will Yes January 21 6:29am Power of Reference Assistant Yes January 21 2 023 6:29am Advance Directive Response Recorded Date/ Time Name of Medical Power of Reference Assistant roni hanna June 01, 2023 6:54am Advance Directives Yes March 30, 2020 4:31pm Living Will Yes June 01 6:54am Power of Reference Assistant Yes June 01 024 6:54am Advance Directive Response Recorded Date/ Time Name of Medical Power of Reference Assistant trenton Hanna June 01, 2023 1:07pm Advance Directives Yes March 30, 2020 4:31pm Living Will Yes June 01 1:07pm Power of Reference Assistant Yes June 01 024 1:07pm Advance Directive Response Recorded Date/ Time Name of Medical Power of Reference Assistant trenton Hanna June 01, 2023 2:07pm Advance Directives Yes March 30, 2020 5:31pm Living Will Yes June 01 2:07pm Power of Reference Assistant Yes June 01 2:07pm Documents on File 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 January 21, 2023 6:29am Advance Directives Yes March 30, 2020 4:31pm Living Will Yes January 21 6:29am Power of Reference Assistant Yes January 21 023 6:29am Advance Directive Response Recorded Date/ Time Living Will Yes January 08 4:13pm Do you have a Healthcare Power of Reference Assistant? Yes January 09, 2024 4:13pm Advance Directives Yes August 19, 025 11:30am Advance Directive Response Recorded Date/ Time Advance Directives Yes August 19 025 11:30am Advance Directive Response Recorded Date/ Time Living Will Yes October 31, 2021 8 :48am Do you have a Healthcare Power of Reference Assistant? Yes October 31, 2021 8:48am Advance Directives Yes August 19 025 11:30am Advance Directive Response Recorded Date/ Time Living Will Yes October 31, 2021 8 :48am Do you have a Healthcare Power of Reference Assistant? Yes October 31, 2021 8:48am Do you have a Healthcare Power of Reference Assistant? No January 08, 2025 4:34pm Advance Directives Yes August 19 025 11:30am Advance Directive Response Recorded Date/ Time Living Will Yes October 31, 2021 8 :48am Do you have a Healthcare Power of Reference Assistant? Yes October 31, 2021 8:48am Do you have a Healthcare Power of Reference Assistant? No January 08, 2025 4:34pm Do you have a Healthcare Power of Reference Assistant? Yes December 11, 2024 9:26am Advance Directives Yes August 19 025 11:30am Advance Directive Response Recorded Date/ Time Living Will Yes January 08 4:13pm Do you have a Healthcare Power of Reference Assistant? Yes January 09, 2024 4:13pm Living Will Yes October 31, 2021 8 :48am Do you have a Healthcare Power of Reference Assistant? Yes October 31, 2021 8:48am Do you have a Healthcare Power of Reference Assistant? No January 08, 2025 4:34pm Do you have a Healthcare Power of Reference Assistant? Yes December 11, 2024 9:26am Advance Directives Yes August 19 025 11:30am Advance Directive Response Recorded Date/ Time Living Will Yes January 08 3:13pm Do you have a Healthcare Power of Reference Assistant? Yes January 09, 2024 3:13pm Living Will Yes October 31, 2021 7 :48am Do you have a Healthcare Power of Reference Assistant? Yes October 31, 2021 7:48am Do you have a Healthcare Power of Reference Assistant? No January 08, 2025 3:34pm Do you have a Healthcare Power of Reference Assistant? 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 Atrial fibrillation History of coronary artery stent placement PSVT (paroxysmal supraventricular tachycardia) Abnormal CT lung screening Anemia Diarrhea Chief Complaint 6 M FU RECTAL BLEEDING RA 2 wk fu colon [place] S/O- PAIN- COPY PCP RA congestion Reason for Visit Nonrheumatic 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 Atrial fibrillation History of coronary artery stent placement PSVT (paroxysmal supraventricular tachycardia) Abnormal CT lung screening Anemia Diarrhea Chief Complaint [place] S/O- PAIN- COPY PCP RA congestion 6 wk FU RA S/O- PAIN COPY PCP Reason for Visit Abnormal CT lung scr eening Anemia Diarrhea Chief Complaint congestion 6 wk FU RA S/O- PAIN COPY PCP 1 Y FU MURMUR MURMUR Reason for Visit Abnormal CT lung scr eening Anemia Diarrhea Nonrheumatic aortic (valve) stenosis On amiodarone therapy Atherosclerotic heart disease of [place] coronary artery without angina pectoris History of coronary artery stent placement PSVT (paroxysmal supraventricular tachycardia) Chief Complaint congestion 6 wk FU RA S/O- PAIN COPY PCP 1 Y FU MURMUR MURMUR RA Reason for Visit Abnormal CT lung scr eening Anemia Diarrhea Nonrheumatic aortic (valve) stenosis On amiodarone therapy Atherosclerotic heart disease of [place] coronary artery without angina pectoris History of coronary artery stent placement PSVT (paroxysmal supraventricular tachycardia) Chief Complaint 1 Y FU MURMUR MURMUR RA RA S/O- PAIN COPY PCP Reason for Visit Nonrheumatic aortic (valve) stenosis On amiodarone therapy Atherosclerotic heart disease of [place] coronary artery without angina pectoris History of coronary artery stent placement PSVT (paroxysmal supraventricular tachycardia) Chief Complaint RA S/O- PAIN COPY PCP 4 M FU EORDERS RA EARLY SATIETY Reason for Visit Constipation Early satiety Chief Complaint RA S/O- PAIN COPY PCP 4 M FU EORDERS RA EARLY SATIETY LABS AND XRAY- BACK PAIN Reason for Visit Constipation Early satiety Chief Complaint RA S/O- PAIN COPY PCP 4 M FU EORDERS RA EARLY SATIETY LABS AND XRAY- BACK PAIN 6 M FU Elevated C-reactive protein (CRP) 3 MO FU E ORDER RA Reason for Visit Early satiety Constipation Nonrheumatic aortic (valve) stenosis On amiodarone therapy Atherosclerotic heart disease of [place] coronary artery without angina pectoris PSVT (paroxysmal supraventricular tachycardia) Anemia Constipation Chief Complaint RA EARLY SATIETY LABS AND XRAY- BACK PAIN 6 M FU Elevated C-reactive protein (CRP) 3 MO FU E ORDER RA NEW PT - ANEMIA MED ONC LABS AND XRAY- dyspnea RA Reason for Visit Nonrheumatic aortic (valve) stenosis On amiodarone therapy Atherosclerotic heart disease of [place] coronary artery without angina pectoris PSVT (paroxysmal supraventricular tachycardia) Anemia Constipation Anemia Chief Complaint RA EARLY SATIETY LABS AND XRAY- BACK PAIN 6 M FU Elevated C-reactive protein (CRP) 3 MO FU E ORDER RA NEW PT - ANEMIA LABS AND XRAY- dyspnea RA MED ONC Reason for Visit Nonrheumatic aortic (valve) stenosis On amiodarone therapy Atherosclerotic heart disease of [place] coronary artery without angina pectoris PSVT (paroxysmal supraventricular tachycardia) Anemia Constipation Anemia Anemia Chief Complaint RA EARLY SATIETY LABS AND XRAY- BACK PAIN 6 M FU Elevated C-reactive protein (CRP) 3 MO FU E ORDER RA NEW PT - ANEMIA LABS AND XRAY- dyspnea RA 1WK LABS MED ONC HYPOXIA Reason for Visit Nonrheumatic aortic (valve) stenosis On amiodarone therapy Atherosclerotic heart disease of [place] coronary artery without angina pectoris PSVT (paroxysmal supraventricular tachycardia) Anemia Constipation Anemia Anemia Aortic valve stenosis, acquired Elevated brain natriuretic peptide (BNP) level Elevated troponin Hypoxia Lymphedema of both lower extremities Atherosclerotic heart disease of [place] coronary artery without angina pectoris GERD (gastroesophageal reflux disease) Chief Complaint RA EARLY SATIETY LABS AND XRAY- BACK PAIN 6 M FU Elevated C-reactive protein (CRP) 3 MO FU E ORDER RA NEW PT - ANEMIA LABS AND XRAY- dyspnea RA 1WK LABS MED ONC HYPOXIA HYPOXIA Reason for Visit Nonrheumatic aortic (valve) stenosis On amiodarone therapy Atherosclerotic heart disease of [place] coronary artery without angina pectoris PSVT (paroxysmal supraventricular tachycardia) Anemia Constipation Anemia Anemia Aortic valve stenosis, acquired Elevated brain natriuretic peptide (BNP) level Elevated troponin Hypoxia Lymphedema of both lower extremities Atherosclerotic heart disease of [place] coronary artery without angina pectoris GERD (gastroesophageal reflux disease) Chief Complaint LABS AND XRAY- BACK PAIN 6 M FU Elevated C-reactive protein (CRP) 3 MO FU E ORDER RA NEW PT - ANEMIA LABS AND XRAY- dyspnea RA 1WK LABS MED ONC HYPOXIA HYPOXIA HYPOXIA E-ORDER S/O- PAIN- COPY PCP EORDERS-2 ORDERING DRS 4WKS LABS 3 MO FU GI BLEED, ANEMIA, PLEURAL EFFUSION GI BLEED, ANEMIA, PLEURAL EFFUSION GI BLEED, ANEMIA, PLEURAL EFFUSION GI BLEED, ANEMIA, PLEURAL EFFUSION Reason for Visit Nonrheumatic aortic (valve) stenosis On amiodarone therapy PSVT (paroxysmal supraventricular tachycardia) Anemia Constipation Anemia Anemia Aortic valve stenosis, acquired GERD (gastroesophageal reflux disease) Hypoxia Anemia Acute GI bleeding ABLA (acute blood loss anemia) Acute GI bleeding Anticoagulated Bilateral leg edema Food bolus obstruction of intestine Pleural effusion Edema Hypoxia Chief Complaint Elevated C-reactive protein (CRP) 3 MO FU E ORDER RA NEW PT - ANEMIA LABS AND XRAY- dyspnea RA 1WK LABS HYPOXIA HYPOXIA HYPOXIA E-ORDER S/O- PAIN- COPY PCP EORDERS-2 ORDERING DRS 4WKS LABS 3 MO FU GI BLEED, ANEMIA, PLEURAL EFFUSION GI BLEED, ANEMIA, PLEURAL EFFUSION GI BLEED, ANEMIA, PLEURAL EFFUSION GI BLEED, ANEMIA, PLEURAL EFFUSION MED ONC S/P WC, having CHF again L.Lorson RA Reason for Visit Anemia Constipation Anemia Anemia Aortic valve stenosis, acquired GERD (gastroesophageal reflux disease) Hypoxia Anemia Anticoagulated Bilateral leg edema Edema Food bolus obstruction of intestine Hypoxia Abnormal x-ray Bilateral leg edema Paroxysmal atrial fibrillation Nonrheumatic aortic (valve) stenosis On amiodarone therapy PSVT (paroxysmal supraventricular tachycardia) Chief Complaint NEW PT - ANEMIA LABS AND XRAY- dyspnea RA 1WK LABS HYPOXIA HYPOXIA HYPOXIA E-ORDER S/O- PAIN- COPY PCP EORDERS-2 ORDERING DRS 4WKS LABS 3 MO FU GI BLEED, ANEMIA, PLEURAL EFFUSION GI BLEED, ANEMIA, PLEURAL EFFUSION GI BLEED, ANEMIA, PLEURAL EFFUSION GI BLEED, ANEMIA, PLEURAL EFFUSION MED ONC S/P [facility], having CHF again [facility] LARSON lumbar spine RM 2 2 DRS/ 2 ORDERS LUMBAR PAIN Reason for Visit Anemia Anemia Aortic valve stenosis, acquired GERD (gastroesophageal reflux disease) Hypoxia Anemia Anticoagulated Bilateral leg edema Edema Food bolus obstruction of intestine Hypoxia Abnormal x-ray Bilateral leg edema Paroxysmal atrial fibrillation Nonrheumatic aortic (valve) stenosis On amiodarone therapy PSVT (paroxysmal supraventricular tachycardia) Compression fracture Osteoporosis Chief Complaint NEW PT - ANEMIA LABS AND XRAY- dyspnea RA 1WK LABS HYPOXIA HYPOXIA HYPOXIA E-ORDER S/O- PAIN- COPY PCP EORDERS-2 ORDERING DRS 4WKS LABS 3 MO FU GI BLEED, ANEMIA, PLEURAL EFFUSION GI BLEED, ANEMIA, PLEURAL EFFUSION GI BLEED, ANEMIA, PLEURAL EFFUSION GI BLEED, ANEMIA, PLEURAL EFFUSION MED ONC S/P WC, having CHF again [facility] LARSON lumbar spine RM 2 2 DRS/ 2 ORDERS LUMBAR PAIN OSTEO Reason for Visit Anemia Anemia Aortic valve stenosis, acquired GERD (gastroesophageal reflux disease) Hypoxia Anemia Anticoagulated Bilateral leg edema Edema Food bolus obstruction of intestine Hypoxia Abnormal x-ray Bilateral leg edema Paroxysmal atrial fibrillation Nonrheumatic aortic (valve) stenosis On amiodarone therapy PSVT (paroxysmal supraventricular tachycardia) Compression fracture Osteoporosis Chief Complaint NEW PT - ANEMIA LABS AND XRAY- dyspnea RA 1WK LABS HYPOXIA HYPOXIA HYPOXIA E-ORDER S/O- PAIN- COPY PCP EORDERS-2 ORDERING DRS 4WKS LABS 3 MO FU GI BLEED, ANEMIA, PLEURAL EFFUSION GI BLEED, ANEMIA, PLEURAL EFFUSION GI BLEED, ANEMIA, PLEURAL EFFUSION GI BLEED, ANEMIA, PLEURAL EFFUSION MED ONC S/P WC, having CHF again [facility] lumbar spine RM 2 2 DRS/ 2 ORDERS LUMBAR PAIN OSTEO LUMBER SPINE Reason for Visit Anemia Anemia Aortic valve stenosis, acquired GERD (gastroesophageal reflux disease) Hypoxia Anemia Anticoagulated Bilateral leg edema Edema Food bolus obstruction of intestine Hypoxia Abnormal x-ray Bilateral leg edema Paroxysmal atrial fibrillation Nonrheumatic aortic (valve) stenosis On amiodarone therapy PSVT (paroxysmal supraventricular tachycardia) Compression fracture Osteoporosis Compression fracture Osteoporosis Steroid dependence Chief Complaint NEW PT - ANEMIA LABS AND XRAY- dyspnea RA 1WK LABS HYPOXIA HYPOXIA HYPOXIA E-ORDER S/O- PAIN- COPY PCP EORDERS-2 ORDERING DRS 4WKS LABS 3 MO FU GI BLEED, ANEMIA, PLEURAL EFFUSION GI BLEED, ANEMIA, PLEURAL EFFUSION GI BLEED, ANEMIA, PLEURAL EFFUSION GI BLEED, ANEMIA, PLEURAL EFFUSION MED ONC S/P WC, having CHF again [facility] lumbar spine RM 2 2 DRS/ 2 ORDERS LUMBAR PAIN OSTEO LUMBER SPINE 8WK LABS PRIOR E-ORDER Reason for Visit Anemia Anemia Aortic valve stenosis, acquired GERD (gastroesophageal reflux disease) Hypoxia Anemia Anticoagulated Bilateral leg edema Edema Food bolus obstruction of intestine Hypoxia Abnormal x-ray Bilateral leg edema Paroxysmal atrial fibrillation Nonrheumatic aortic (valve) stenosis On amiodarone therapy PSVT (paroxysmal supraventricular tachycardia) Compression fracture Osteoporosis Compression fracture Osteoporosis Steroid dependence Anemia Chief Complaint NEW PT - ANEMIA LABS AND XRAY- dyspnea RA 1WK LABS HYPOXIA HYPOXIA HYPOXIA E-ORDER S/O- PAIN- COPY PCP EORDERS-2 ORDERING DRS 4WKS LABS 3 MO FU GI BLEED, ANEMIA, PLEURAL EFFUSION GI BLEED, ANEMIA, PLEURAL EFFUSION GI BLEED, ANEMIA, PLEURAL EFFUSION GI BLEED, ANEMIA, PLEURAL EFFUSION MED ONC S/P WC, having CHF again [facility] lumbar spine RM 2 2 DRS/ 2 ORDERS LUMBAR PAIN OSTEO LUMBER SPINE 8WK LABS PRIOR E-ORDER FALL, RHABDOMYOLYSIS, ADULT FTT Reason for Visit Anemia Anemia Aortic valve stenosis, acquired Hypoxia Anemia Anticoagulated Bilateral leg edema Edema Food bolus obstruction of intestine Hypoxia Abnormal x-ray Bilateral leg edema Paroxysmal atrial fibrillation Nonrheumatic aortic (valve) stenosis On amiodarone therapy PSVT (paroxysmal supraventricular tachycardia) Compression fracture Osteoporosis Compression fracture Osteoporosis Steroid dependence Anemia Rhabdomyolysis Chief Complaint HYPOXIA HYPOXIA HYPOXIA E-ORDER S/O- PAIN- COPY PCP EORDERS-2 ORDERING DRS 4WKS LABS 3 MO FU GI BLEED, ANEMIA, PLEURAL EFFUSION GI BLEED, ANEMIA, PLEURAL EFFUSION GI BLEED, ANEMIA, PLEURAL EFFUSION GI BLEED, ANEMIA, PLEURAL EFFUSION MED ONC S/P WC, having CHF again [facility] lumbar spine RM 2 2 DRS/ 2 ORDERS LUMBAR PAIN OSTEO LUMBER SPINE 8WK LABS PRIOR E-ORDER FALL, RHABDOMYOLYSIS, ADULT FTT FALL, RHABDOMYOLYSIS, ADULT FTT FALL, RHABDOMYOLYSIS, ADULT FTT FALL, RHABDOMYOLYSIS, ADULT FTT fall Reason for Visit Aortic valve stenosi s, acquired Hypoxia Anemia Anticoagulated Bilateral leg edema Edema Food bolus obstruction of intestine Hypoxia Abnormal x-ray Bilateral leg edema Paroxysmal atrial fibrillation Nonrheumatic aortic (valve) stenosis On amiodarone therapy PSVT (paroxysmal supraventricular tachycardia) Compression fracture Osteoporosis Compression fracture Osteoporosis Steroid dependence Anemia Compression fracture of L1 vertebra Compression fracture of L5 vertebra Debility History of recent fall Hypoxia Rib fractures Right flank hematoma Rhabdomyolysis Acute on chronic heart failure with preserved ejection fraction Compression fracture of L1 vertebra Compression fracture of L5 vertebra Debility Depression History of recent fall Hyperlipidemia Hypoxia Iron deficiency anemia Neuropathic pain Rib fractures Atrial fibrillation Chronic pain Rhabdomyolysis Chief Complaint E-ORDER S/O- PAIN- COPY PCP EORDERS-2 ORDERING DRS 4WKS LABS 3 MO FU GI BLEED, ANEMIA, PLEURAL EFFUSION GI BLEED, ANEMIA, PLEURAL EFFUSION GI BLEED, ANEMIA, PLEURAL EFFUSION GI BLEED, ANEMIA, PLEURAL EFFUSION MED ONC S/P [facility], having CHF again [facility] lumbar spine RM 2 2 DRS/ 2 ORDERS LUMBAR PAIN OSTEO LUMBER SPINE 8WK LABS PRIOR E-ORDER FALL, RHABDOMYOLYSIS, ADULT FTT FALL, RHABDOMYOLYSIS, ADULT FTT FALL, RHABDOMYOLYSIS, ADULT FTT FALL, RHABDOMYOLYSIS, ADULT FTT fall Reason for Visit Anemia Anticoagulated Bilateral leg edema Edema Food bolus obstruction of intestine Hypoxia Abnormal x-ray Bilateral leg edema Paroxysmal atrial fibrillation Nonrheumatic aortic (valve) stenosis On amiodarone therapy PSVT (paroxysmal supraventricular tachycardia) Compression fracture Osteoporosis Compression fracture Osteoporosis Steroid dependence Anemia Compression fracture of L1 vertebra Compression fracture of L5 vertebra Debility History of recent fall Hypoxia Rib fractures Right flank hematoma Rhabdomyolysis Acute on chronic heart failure with preserved ejection fraction Compression fracture of L1 vertebra Compression fracture of L5 vertebra Debility Depression History of recent fall Hyperlipidemia Hypoxia Iron deficiency anemia Neuropathic pain Rib fractures Atrial fibrillation Chronic pain Rhabdomyolysis Chief Complaint OSTEO LUMBER SPINE 8WK LABS PRIOR E-ORDER FALL, RHABDOMYOLYSIS, ADULT FTT FALL, RHABDOMYOLYSIS, ADULT FTT FALL, RHABDOMYOLYSIS, ADULT FTT FALL, RHABDOMYOLYSIS, ADULT FTT fall Osteoporosis SIMPONI ARIA Reason for Visit Compression fracture Steroid dependence Osteoporosis Anemia Debility Hypoxia Rib fractures Right flank hematoma Compression fracture of L1 vertebra Compression fracture of L5 vertebra History of recent fall Rhabdomyolysis Acute on chronic heart failure with preserved ejection fraction Debility Depression Hyperlipidemia Hypoxia Iron deficiency anemia Neuropathic pain Rib fractures Atrial fibrillation Chronic pain Compression fracture of L1 vertebra Compression fracture of L5 vertebra History of recent fall Rhabdomyolysis Osteoporosis Secondary adrenal insufficiency Vitamin D deficiency Chief Complaint FALL, RHABDOMYOLYSIS , ADULT FTT Osteoporosis SIMPONI ARIA SIMPONI ARIA Reason for Visit Acute on chronic hea rt failure with preserved ejection fraction Debility Depression Hyperlipidemia Hypoxia Iron deficiency anemia Neuropathic pain Rib fractures Atrial fibrillation Chronic pain Compression fracture of L1 vertebra Compression fracture of L5 vertebra History of recent fall Rhabdomyolysis Osteoporosis Secondary adrenal insufficiency Vitamin D deficiency Chief Complaint Osteoporosis SIMPONI ARIA SIMPONI ARIA HYPOXIA 2/2 COVID/GENERALIZED WEAKNESS Reason for Visit Osteoporosis Secondary adrenal insufficiency Vitamin D deficiency COVID-19 Hypoxia intermediate (current) use of anticoagulants Weakness Chief Complaint Osteoporosis SIMPONI ARIA SIMPONI ARIA HYPOXIA 2/2 COVID/GENERALIZED WEAKNESS HYPOXIA 2/2 COVID/GENERALIZED WEAKNESS HYPOXIA 2/2 COVID/GENERALIZED WEAKNESS Reason for Visit Osteoporosis Secondary adrenal insufficiency Vitamin D deficiency COVID-19 Hypoxia intermediate (current) use of anticoagulants Weakness Chief Complaint Osteoporosis SIMPONI ARIA SIMPONI ARIA HYPOXIA 2/2 COVID/GENERALIZED WEAKNESS HYPOXIA 2/2 COVID/GENERALIZED WEAKNESS HYPOXIA 2/2 COVID/GENERALIZED WEAKNESS MED ONC 6 MO - LABS CORTROSYN Reason for Visit Osteoporosis Secondary adrenal insufficiency Vitamin D deficiency COVID-19 Hypoxia Weakness Anemia Chief Complaint SIMPONI ARIA SIMPONI ARIA HYPOXIA 2/2 COVID/GENERALIZED WEAKNESS HYPOXIA 2/2 COVID/GENERALIZED WEAKNESS HYPOXIA 2/2 COVID/GENERALIZED WEAKNESS MED ONC 6 MO - LABS CORTROSYN SIMPONI ARIA Reason for Visit COVID-19 Hypoxia Weakness Anemia Chief Complaint SIMPONI ARIA HYPOXIA 2/2 COVID/GENERALIZED WEAKNESS HYPOXIA 2/2 COVID/GENERALIZED WEAKNESS HYPOXIA 2/2 COVID/GENERALIZED WEAKNESS MED ONC 6 MO - LABS CORTROSYN SIMPONI ARIA PAIN- COPY PCP Reason for Visit COVID-19 Hypoxia Weakness Anemia Chief Complaint SIMPONI ARIA HYPOXIA 2/2 COVID/GENERALIZED WEAKNESS HYPOXIA 2/2 COVID/GENERALIZED WEAKNESS HYPOXIA 2/2 COVID/GENERALIZED WEAKNESS MED ONC 6 MO - LABS CORTROSYN SIMPONI ARIA PAIN- COPY PCP SHOULDER PAIN Reason for Visit COVID-19 Hypoxia Weakness Anemia Chief Complaint HYPOXIA 2/2 COVID/GE NERALIZED WEAKNESS HYPOXIA 2/2 COVID/GENERALIZED WEAKNESS HYPOXIA 2/2 COVID/GENERALIZED WEAKNESS MED ONC 6 MO - LABS CORTROSYN SIMPONI ARIA PAIN- COPY PCP SHOULDER PAIN SIMPONI ARIA Reason for Visit COVID-19 Hypoxia Weakness Anemia Chief Complaint FALL, RHABDOMYOLYSIS , ADULT FTT fall Osteoporosis SIMPONI ARIA Reason for Visit Acute on chronic hea rt failure with preserved ejection fraction Debility Depression Hyperlipidemia Hypoxia Iron deficiency anemia Neuropathic pain Rib fractures Atrial fibrillation Chronic pain Compression fracture of L1 vertebra Compression fracture of L5 vertebra History of recent fall Rhabdomyolysis Osteoporosis Secondary adrenal insufficiency Vitamin D deficiency Chief Complaint Admit Date SIMPONI ARIA May 09, 2024 1:02pm PAIN- COPY PCP June 24, 2024 3 :35pm SIMPONI ARIA July 02, 2024 2 :58pm PAIN- COPY PCP July 15, 2024 3:59pm SIMPONI ARIA August 26, 2024 2:5 5pm Chief Complaint Admit Date PAIN- COPY PCP June 24, 2024 3 :35pm SIMPONI ARIA July 02, 2024 2 :58pm PAIN- COPY PCP July 15, 2024 3:59pm SIMPONI ARIA August 26, 2024 2:5 5pm Prolia- B&B September 12, 2024 3:3 4pm PAIN- COPY PCP September 16, 2024 4:2 1pm RIGHT SHOULDER September 26, 2024 2:29pm Reason for Visit Admit Date Osteoporosis September 12, 2024 3:3 4pm Right rotator cuff tear arthropathy September 26, 2024 2:29pm Right shoulder pain September 26, 2024 2:29pm Chief Complaint Admit Date SIMPONI ARIA July 02, 2024 2 :58pm PAIN- COPY PCP July 15, 2024 3:59pm SIMPONI ARIA August 26, 2024 2:5 5pm Prolia- B&B September 12, 2024 3:3 4pm PAIN- COPY PCP September 16, 2024 4:2 1pm RIGHT SHOULDER September 26, 2024 2:29pm Overdue FU October 23, 2024 1:29p m Reason for Visit Admit Date Osteoporosis September 12, 2024 3:3 4pm Right rotator cuff tear arthropathy September 26, 2024 2:29pm Right shoulder pain September 26, 2024 2:29pm Aortic valve stenosis October 23, 2024 1:2 9pm Coronary artery disease October 23, 2024 1 :29pm Dyslipidemia October 23, 2024 1:29p m Encounter 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 October 23, 2024 1:29pm History of coronary artery stent placeme nt October 23, 2024 1:29pm Paroxysmal atrial fibrillation October 23, 2024 1:29pm Rheumatoid arthritis October 23, 2024 1:29 pm Chief Complaint Admit Date SIMPONI ARIA July 02, 2024 2 :58pm PAIN- COPY PCP July 15, 2024 3:59pm SIMPONI ARIA August 26, 2024 2:5 5pm Prolia- B&B September 12, 2024 3:3 4pm PAIN- COPY PCP September 16, 2024 4:2 1pm RIGHT SHOULDER September 26, 2024 2:29pm Overdue FU October 23, 2024 1:29p m BLUEPRINT PLANNING FOR REVERSE SHOULDER October 24, 2024 7:01pm SIMPONI ARIA October 25, 2024 11:04 am Chief Complaint Admit Date PAIN- COPY PCP July 15, 2024 3:59pm SIMPONI ARIA August 26, 2024 2:5 5pm Prolia- B&B September 12, 2024 3:3 4pm PAIN- COPY PCP September 16, 2024 4:2 1pm RIGHT SHOULDER September 26, 2024 2:29pm Overdue FU October 23, 2024 1:29p m BLUEPRINT PLANNING FOR REVERSE SHOULDER October 24, 2024 7:01pm SIMPONI ARIA October 25, 2024 11:04 am Peripheral vascular disease November 05, 2 025 1:04pm Reason for Visit Admit Date Osteoporosis September 12, 2024 3:3 4pm Right rotator cuff tear arthropathy September 26, 2024 2:29pm Right shoulder pain September 26, 2024 2:29pm Aortic valve stenosis October 23, 2024 1:2 9pm Coronary artery disease October 23, 2024 1 :29pm Dyslipidemia October 23, 2024 1:29p m Encounter 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 October 23, 2024 1:29pm History of coronary artery stent placeme nt October 23, 2024 1:29pm Paroxysmal atrial fibrillation October 23, 2024 1:29pm Rheumatoid arthritis October 23, 2024 1:29 pm Peripheral vascular disease November 05, 2 025 1:04pm Chief Complaint Admit Date PAIN- COPY PCP July 15, 2024 3:59pm SIMPONI ARIA August 26, 2024 2:5 5pm Prolia- B&B September 12, 2024 3:3 4pm PAIN- COPY PCP September 16, 2024 4:2 1pm RIGHT SHOULDER September 26, 2024 2:29pm Overdue FU October 23, 2024 1:29p m BLUEPRINT PLANNING FOR REVERSE SHOULDER October 24, 2024 7:01pm SIMPONI ARIA October 25, 2024 11:04 am Peripheral vascular disease November 05, 2 025 1:04pm PLANNING FOR RTSA November 06, 2024 3:46 pm Reason for Visit Admit Date Osteoporosis September 12, 2024 3:3 4pm Right rotator cuff tear arthropathy September 26, 2024 2:29pm Right shoulder pain September 26, 2024 2:29pm Aortic valve stenosis October 23, 2024 1:2 9pm Coronary artery disease October 23, 2024 1 :29pm Dyslipidemia October 23, 2024 1:29p m Encounter 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 October 23, 2024 1:29pm History of coronary artery stent placeme nt October 23, 2024 1:29pm Paroxysmal atrial fibrillation October 23, 2024 1:29pm Rheumatoid arthritis October 23, 2024 1:29 pm Bilateral leg edema November 05, 2024 1:04 pm Lymphedema November 05, 2024 1:04 pm Chief Complaint Admit Date SIMPONI ARIA August 26, 2024 2:5 5pm Prolia- B&B September 12, 2024 3:3 4pm PAIN- COPY PCP September 16, 2024 4:2 1pm RIGHT SHOULDER September 26, 2024 2:29pm Overdue FU October 23, 2024 1:29p m BLUEPRINT PLANNING FOR REVERSE SHOULDER October 24, 2024 7:01pm SIMPONI ARIA October 25, 2024 11:04 am Peripheral vascular disease November 05, 2 025 1:04pm PLANNING FOR RTSA November 06, 2024 3:46 pm therapeutic drug level monitoing November 192024 12:45pm RIGHT SHOULDER November 25, 2024 3:21 pm Reason for Visit Admit Date Osteoporosis September 12, 2024 3:3 4pm Right rotator cuff tear arthropathy September 26, 2024 2:29pm Right shoulder pain September 26, 2024 2:29pm Aortic valve stenosis October 23, 2024 1:2 9pm Coronary artery disease October 23, 2024 1 :29pm Dyslipidemia October 23, 2024 1:29p m Encounter 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 October 23, 2024 1:29pm History of coronary artery stent placeme nt October 23, 2024 1:29pm Paroxysmal atrial fibrillation October 23, 2024 1:29pm Rheumatoid arthritis October 23, 2024 1:29 pm Bilateral leg edema November 05, 2024 1:04 pm Lymphedema November 05, 2024 1:04 pm Right rotator cuff tear arthropathy November 25, 2024 3:21pm Chief Complaint Admit Date SIMPONI ARIA August 26, 2024 2:5 5pm Prolia- B&B September 12, 2024 3:3 4pm PAIN- COPY PCP September 16, 2024 4:2 1pm RIGHT SHOULDER September 26, 2024 2:29pm Overdue FU October 23, 2024 1:29p m BLUEPRINT PLANNING FOR REVERSE SHOULDER October 24, 2024 7:01pm SIMPONI ARIA October 25, 2024 11:04 am Peripheral vascular disease November 05, 2 025 1:04pm PLANNING FOR RTSA November 06, 2024 3:46 pm therapeutic drug level monitoing November 192024 12:45pm RIGHT SHOULDER November 25, 2024 3:21 pm MED ONC December 12, 2024 10:4 5am 1 YEAR LABS December 12, 2024 10:5 0am Reason for Visit Admit Date Osteoporosis September 12, 2024 3:3 4pm Right rotator cuff tear arthropathy September 26, 2024 2:29pm Right shoulder pain September 26, 2024 2:29pm Aortic valve stenosis October 23, 2024 1:2 9pm Coronary artery disease October 23, 2024 1 :29pm Dyslipidemia October 23, 2024 1:29p m Encounter 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 October 23, 2024 1:29pm History of coronary artery stent placeme nt October 23, 2024 1:29pm Paroxysmal atrial fibrillation October 23, 2024 1:29pm Rheumatoid arthritis October 23, 2024 1:29 pm Bilateral leg edema November 05, 2024 1:04 pm Lymphedema November 05, 2024 1:04 pm Right rotator cuff tear arthropathy November 25, 2024 3:21pm Anemia December 12, 2024 10:5 0am Chief Complaint Admit Date Prolia- B&B September 12, 2024 3:3 4pm PAIN- COPY PCP September 16, 2024 4:2 1pm RIGHT SHOULDER September 26, 2024 2:29pm Overdue FU October 23, 2024 1:29p m BLUEPRINT PLANNING FOR REVERSE SHOULDER October 24, 2024 7:01pm SIMPONI ARIA October 25, 2024 11:04 am Peripheral vascular disease November 05, 2 025 1:04pm PLANNING FOR RTSA November 06, 2024 3:46 pm therapeutic drug level monitoing November 192024 12:45pm RIGHT SHOULDER November 25, 2024 3:21 pm MED ONC December 12, 2024 10:4 5am 1 YEAR LABS December 12, 2024 10:5 0am AORTIC VALVE STENOSIS December 24, 2024 8: 54am Chief Complaint Admit Date Prolia- B&B September 12, 2024 3:3 4pm PAIN- COPY PCP September 16, 2024 4:2 1pm RIGHT SHOULDER September 26, 2024 2:29pm Overdue FU October 23, 2024 1:29p m BLUEPRINT PLANNING FOR REVERSE SHOULDER October 24, 2024 7:01pm SIMPONI ARIA October 25, 2024 11:04 am Peripheral vascular disease November 05, 2 025 1:04pm PLANNING FOR RTSA November 06, 2024 3:46 pm therapeutic drug level monitoing November 192024 12:45pm RIGHT SHOULDER November 25, 2024 3:21 pm MED ONC December 12, 2024 10:4 5am 1 YEAR LABS December 12, 2024 10:5 0am AORTIC VALVE STENOSIS December 24, 2024 8: 54am fall January 08, 2025 3: 44pm Chief Complaint Admit Date PAIN- COPY PCP September 16, 2024 4:2 1pm RIGHT SHOULDER September 26, 2024 2:29pm Overdue FU October 23, 2024 1:29p m BLUEPRINT PLANNING FOR REVERSE SHOULDER October 24, 2024 7:01pm SIMPONI ARIA October 25, 2024 11:04 am Peripheral vascular disease November 05, 2 025 1:04pm PLANNING FOR RTSA November 06, 2024 3:46 pm therapeutic drug level monitoing November 192024 12:45pm RIGHT SHOULDER November 25, 2024 3:21 pm MED ONC December 12, 2024 10:4 5am 1 YEAR LABS December 12, 2024 10:5 0am AORTIC VALVE STENOSIS December 24, 2024 8: 54am fall January 08, 2025 3: 44pm SIMPONI ARIA January 10, 2025 11 :40am Reason for Visit Admit Date Right rotator cuff tear arthropathy September 26, 2024 2:29pm Right shoulder pain September 26, 2024 2:29pm Aortic valve stenosis October 23, 2024 1:2 9pm Coronary artery disease October 23, 2024 1 :29pm Dyslipidemia October 23, 2024 1:29p m Encounter 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 October 23, 2024 1:29pm History of coronary artery stent placeme nt October 23, 2024 1:29pm Paroxysmal atrial fibrillation October 23, 2024 1:29pm Rheumatoid arthritis October 23, 2024 1:29 pm Bilateral leg edema November 05, 2024 1:04 pm Lymphedema November 05, 2024 1:04 pm Right rotator cuff tear arthropathy November 25, 2024 3:21pm Anemia December 12, 2024 10:5 0am Chief Complaint Admit Date RIGHT SHOULDER September 26, 2024 2:29pm Overdue FU October 23, 2024 1:29p m BLUEPRINT PLANNING FOR REVERSE SHOULDER October 24, 2024 7:01pm SIMPONI ARIA October 25, 2024 11:04 am Peripheral vascular disease November 05, 2 025 1:04pm PLANNING FOR RTSA November 06, 2024 3:46 pm therapeutic drug level monitoing November 192024 12:45pm RIGHT SHOULDER November 25, 2024 3:21 pm MED ONC December 12, 2024 10:4 5am 1 YEAR LABS December 12, 2024 10:5 0am AORTIC VALVE STENOSIS December 24, 2024 8: 54am fall January 08, 2025 3: 44pm SIMPONI ARIA January 10, 2025 11 :40am Chief Complaint Admit Date Peripheral vascular disease November 05, 2 025 1:04pm PLANNING FOR RTSA November 06, 2024 3:46 pm therapeutic drug level monitoing November 192024 12:45pm RIGHT SHOULDER November 25, 2024 3:21 pm MED ONC December 12, 2024 10:4 5am 1 YEAR LABS December 12, 2024 10:5 0am AORTIC VALVE STENOSIS December 24, 2024 8: 54am fall January 08, 2025 3: 44pm SIMPONI ARIA January 10, 2025 11 :40am Right reverse Total Shoulder arthroplast y February 17, 2025 1:36pm Reason for Visit Admit Date Bilateral leg edema November 05, 2024 1:04 pm Lymphedema November 05, 2024 1:04 pm Right rotator cuff tear arthropathy November 25, 2024 3:21pm Anemia December 12, 2024 10:5 0am Chief Complaint Admit Date RIGHT SHOULDER November 25, 2024 3:21 pm MED ONC December 12, 2024 10:4 5am 1 YEAR LABS December 12, 2024 10:5 0am AORTIC VALVE STENOSIS December 24, 2024 8: 54am fall January 08, 2025 3: 44pm SIMPONI ARIA January 10, 2025 11 :40am Right reverse Total Shoulder arthroplast y February 17, 2025 1:36pm SIMPONI ARIA March 12, 2025 2 :59pm 1 Y FU March 14, 2025 3 :43pm 6 M FU March 19, 2025 3 :03pm Reason for Visit Admit Date Right rotator cuff tear arthropathy November 25, 2024 3:21pm Anemia December 12, 2024 10:5 0am Osteoporosis March 14, 2025 3 :43pm Aortic valve stenosis March 19, 2025 3:03pm Dyslipidemia March 19, 2025 3 :03pm Encounter 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 March 19, 2025 3:03pm History of coronary artery stent placeme nt March 19, 2025 3:03pm Paroxysmal atrial fibrillation February [id number] 3:03pm Chief Complaint Admit Date MED ONC December 12, 2024 10:4 5am 1 YEAR LABS December 12, 2024 10:5 0am AORTIC VALVE STENOSIS December 24, 2024 8: 54am fall January 08, 2025 3: 44pm SIMPONI ARIA January 10, 2025 11 :40am Right reverse Total Shoulder arthroplast y February 17, 2025 1:36pm SIMPONI ARIA March 12, 2025 2 :59pm 1 Y FU March 14, 2025 3 :43pm 6 M FU March 19, 2025 3 :03pm Reason for Visit Admit Date Anemia December 12, 2024 10:5 0am Osteoporosis March 14, 2025 3 :43pm Aortic valve stenosis March 19, 2025 3:03pm Dyslipidemia March 19, 2025 3 :03pm Encounter 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 March 19, 2025 3:03pm History of coronary artery stent placeme nt March 19, 2025 3:03pm Paroxysmal atrial fibrillation February [id number] 3:03pm Health Concerns Infection Onset Date Last Indicated Resolved Time COVID-19 Rule-Out 10/27/2021 10/27/2021 Infection Onset Date Last Indicated Resolved Time COVID-19 Rule-Out 10/27/2021 10/27/2021 10/28/2021 5:37 AM EDT COVID-19 Confirmed 10/27/2021 10/27/2021 Additional Source Comments (unrecognized sect ion and content) No Status Records FoundNo Status Records FoundNo Status Records FoundNo Status Records Found INFORMATION SOURCE (unrecogn ized section and content) DATE CREATED AUTHOR 08/18/2020 [facility] DATE CREATED AUTHOR AUTHOR'S ORGANIZ ATION 03/01/2025 [facility] DATE CREATED AUTHOR AUTHOR'S ORGANIZ ATION 03/23/2025 [facility] DATE CREATED AUTHOR AUTHOR'S ORGANIZ ATION 04/10/2025 [facility] Goals (unrecognized section and content) Goals may be documented in a n alternate sectionGoals may be documented in an alternate sectionGoals may be documented in an alternate sectionGoals may be documented in an alternate sectionGoals may be documented in an alternate sectionGoals may be documented in an alternate sectionGoals may be documented in an alternate sectionGoals may be documented in an alternate sectionGoals may be documented in an alternate sectionGoals may be documented in an alternate sectionGoals may be documented in an alternate sectionGoals may be documented in an alternate sectionGoals may be documented in an alternate sectionGoals may be documented in an alternate sectionGoals may be documented in an alternate sectionGoals may be documented in an alternate sectionGoals may be documented in an alternate sectionGoals may be documented in an alternate sectionGoals may be documented in an alternate sectionGoals may be documented in an alternate sectionGoals may be documented in an alternate sectionGoals may be documented in an alternate sectionGoals may be documented in an alternate sectionGoals may be documented in an alternate sectionGoals may be documented in an alternate sectionGoals may be documented in an alternate sectionGoals may be documented in an alternate sectionGoals may be documented in an alternate sectionGoals may be documented in an alternate sectionGoals may be documented in an alternate sectionGoals may be documented in an alternate sectionGoals may be documented in an alternate sectionGoals may be documented in an alternate sectionGoals may be documented in an alternate sectionGoals may be documented in an alternate sectionGoals may be documented in an alternate sectionGoals may be documented in an alternate sectionGoals may be documented in an alternate sectionGoals may be documented in an alternate section Source Comments (unrecognize d section and content) In the event this informatio n is protected by the Federal Confidentiality of Alcohol and Drug Abuse Patient Records regulations: The Federal rules restrict any use of the information to criminally investigate or prosecute any alcohol or drug abuse patient.[facility] Center[facility] the event this information is protected by the Federal Confidentiality of Alcohol and Drug Abuse Patient Records regulations: The Federal rules restrict any use of the information to criminally investigate or prosecute any alcohol or drug abuse patient.[facility] CenterIn the event this information is protected by the Federal Confidentiality of Alcohol and Drug Abuse Patient Records regulations: The Federal rules restrict any use of the information to criminally investigate or prosecute any alcohol or drug abuse patient.[facility] CenterIn the event this information is protected by the Federal Confidentiality of Alcohol and Drug Abuse Patient Records regulations: The Federal rules restrict any use of the information to criminally investigate or prosecute any alcohol or drug abuse patient.[facility] CenterIn the event this information is protected by the Federal Confidentiality of Alcohol and Drug Abuse Patient Records regulations: The Federal rules restrict any use of the information to criminally investigate or prosecute any alcohol or drug abuse patient.[facility] CenterIn the event this information is protected by the Federal Confidentiality of Alcohol and Drug Abuse Patient Records regulations: The Federal rules restrict any use of the information to criminally investigate or prosecute any alcohol or drug abuse patient.[facility] CenterIn the event this information is protected by the Federal Confidentiality of Alcohol and Drug Abuse Patient Records regulations: The Federal rules restrict any use of the information to criminally investigate or prosecute any alcohol or drug abuse patient.[facility] CenterIn the event this information is protected by the Federal Confidentiality of Alcohol and Drug Abuse Patient Records regulations: The Federal rules restrict any use of the information to criminally investigate or prosecute any alcohol or drug abuse patient.[facility] CenterIn the event this information is protected by the Federal Confidentiality of Alcohol and Drug Abuse Patient Records regulations: The Federal rules restrict any use of the information to criminally investigate or prosecute any alcohol or drug abuse patient.[facility] CenterIn the event this information is protected by the Federal Confidentiality of Alcohol and Drug Abuse Patient Records regulations: The Federal rules restrict any use of the information to criminally investigate or prosecute any alcohol or drug abuse patient.[facility] CenterIn the event this information is protected by the Federal Confidentiality of Alcohol and Drug Abuse Patient Records regulations: The Federal rules restrict any use of the information to criminally investigate or prosecute any alcohol or drug abuse patient.[facility] CenterIn the event this information is protected by the Federal Confidentiality of Alcohol and Drug Abuse Patient Records regulations: The Federal rules restrict any use of the information to criminally investigate or prosecute any alcohol or drug abuse patient.[facility] Reason for Visit (unrecogniz ed section and content) Reason Comments Cough cough, ST, congestio n, fever and chills x 2 days Reason Comments Results COVID+ Reason Comments Rib Injury right side rib pain and bruising with wheezing after fall x days Reason Onset Date Comments Results 02/03/2025 Reason Comments Aortic Stenosis Bryce is here for TAV R evaluation. Care Teams (unrecognized sec tion and content) Data Services Developer Relationship Specialty Start Date End Date Gloria Hazel [address] [place] [address] PCP - General 06/02/04 Data Services Developer Relationship Specialty Start Date End Date Gloria Hazel [address] [place] [address] PCP - General 06/02/04 Team Status: Active Member Role Status Dates Dr. Gloria Hazel MD Family Provider Active Dr. Gloria Hazel MD Primary Care Provider Active Team Status: Inactive Member Role Status Dates Dr. Gloria Hazel MD Primary Care Provider, Referrin g Provider Active Nelda Molina PREVENTION COORDINATOR, PREVENTION COORDINATOR-C Attending Provider Active Team Status: Inactive Member Role Status Dates Dr. Gloria Hazel MD Primary Care Provider Active Dr. Dayana Plasencia MD Attending Provider, Referring Provider Active Team Status: Active Member Role Status Dates Dr. Gloria Hazel MD Primary Care Provider Active Nelda Molina PREVENTION COORDINATOR, PREVENTION COORDINATOR-C Attending Provider, Referrin g Provider Active Team Status: Inactive Member Role Status Dates Dr. Gloria Hazel MD Primary Care Provider Active Dr. Nikunj Saul DO Attending Provider Active Team Status: Active Member Role Status Dates Dr. Gloria Hazel MD Primary Care Provider Active Dr. Lorelei Rust MD Attending Provider, Referring Pr ovider Active Team Status: Inactive Member Role Status Dates Dr. Gloria Hazel MD Primary Care Provider Active Nelda Molina PREVENTION COORDINATOR, PREVENTION COORDINATOR-C Attending Provider, Referrin g Provider Active Team Status: Inactive Member Role Status Dates Dr. Gloria Hazel MD Primary Care Provider Active Dr. Lorelei Rust MD Attending Provider, Referring Pr ovider Active Team Status: Inactive Member Role Status Dates Dr. Gloria Hazel MD Primary Care Provider Active Dr. Josse Roberts MD Attending Provider, Referring Prov ider Active Team Status: Inactive Member Role Status Dates Dr. Gloria Hazel MD Primary Care Provider, Referrin g Provider Active Salvatore Leonardo PREVENTION COORDINATOR, PREVENTION COORDINATOR-C Attending Provider Active Team Status: Active Member Role Status Dates Dr. Gloria Hazel MD Primary Care Provider Active Dr. Dayana Plasencia MD Attending Provider, Referring Provider Active Team Status: Inactive Member Role Status Dates Dr. Gloria Hazel MD Primary Care Provider Active Dr. Josse Roberts MD Attending Provider, Referring Prov ider Active Dr. Dayana Plasencia MD Other Provider Active Team Status: Inactive Member Role Status Dates Dr. Gloria Hazel MD Primary Care Provider Active Nelda Molina PREVENTION COORDINATOR, PREVENTION COORDINATOR-C Attending Provider Active Team Status: Inactive Member Role Status Dates Dr. Gloria Hazel MD Primary Care Provider, Referrin g Provider Active Dr. Catalino Short MD Attending Provider Active Team Status: Active Member Role Status Dates Dr. Gloria Hazel MD Primary Care Provider Active Dr. Catalino Short MD Attending Provider, Referring Pro vider Active Team Status: Active Member Role Status Dates Dr. Gloria Hazel MD Primary Care Prov ider, Attending Provider, Referring Provider Active Team Status: Inactive Member Role Status Dates Dr. Gloria Hazel MD Primary Care Prov ider, Attending Provider, Referring Provider Active Team Status: Active Member Role Status Dates Dr. Gloria Hazel MD Primary Care Provider Active Dr. Apolinar Lozano MD Emergency Provider Active Dr. Aisha Vega MD Admit Provider, Attending Provid er Active Team Status: Active Member Role Status Dates Dr. Gloria Hazel MD Primary Care Provider Active Dr. Apolinar Lozano MD Emergency Provider Active Dr. Aisha Vega MD Admit Provider, At tending Provider, Other Provider Active Team Status: Active Member Role Status Dates Dr. Gloria Hazel MD Primary Care Provider Active Dr. Laith Garcia MD Attending Provider Activ e Team Status: Inactive Member Role Status Dates Dr. Gloria Hazel MD Primary Care Provider Active Dr. Apolinar Lozano MD Emergency Provider Active Dr. Aisha Vega MD Admit Provider, Attending Provid er Active Team Status: Active Member Role Status Dates Dr. Gloria Hazel MD Primary Care Provider Active Dr. Laith Garcia MD Attending Provider Activ e Dr. Aisha Vega MD Referring Provider Active Team Status: Active Member Role Status Dates Dr. Gloria Hazel MD Primary Care Provider Active Dr. Maninder Clark MD Emergency Provider Active Dr. Dajuan Ayers DO Admit Provider, Attending Provider, Other Provider Active Team Status: Active Member Role Status Dates Dr. Gloria Hazel MD Primary Care Provider Active Dr. Maninder Clark MD Emergency Provider Active Dr. Dajuan Ayers DO Admit Provider, Other Provide r Active Dr. Nikunj Saul DO Attending Provider Active Team Status: Active Member Role Status Dates Dr. Gloria Hazel MD Primary Care Provider Active Dr. Nikunj Saul DO Attending Provider Active Team Status: Inactive Member Role Status Dates Dr. Gloria Hazel MD Primary Care Provider Active Iliana Moon PREVENTION COORDINATOR, PREVENTION COORDINATOR-C Attending Provider, Referring P roviroro Active Team Status: Active Member Role Status Dates Dr. Gloria Hazel MD Primary Care Provider Active Dr. Catalino Short MD Attending Provider Active Iliana Moon PREVENTION COORDINATOR, PREVENTION COORDINATOR-C Referring Provider Active Team Status: Inactive Member Role Status Dates Dr. Gloria Hazel MD Primary Care Provider Active Dr. Maninder Clark MD Emergency Provider Active Dr. Dajuan Ayers DO Admit Provider, Attending Pro vider Active Team Status: Active Member Role Status Dates Dr. Gloria Hazel MD Primary Care Provider Active Dr. Maninder Clark MD Emergency Provider Active Dr. Dajuan Ayers DO Admit Provider, Referring Provider, Other Provider Active Dr. Nikunj Saul DO Attending Provider Active Team Status: Active Member Role Status Dates Dr. Gloria Hazel MD Primary Care Provider Active Dr. Nikunj Saul DO Attending Provider Active Dr. Dajuan Ayers DO Referring Provider Active Team Status: Inactive Member Role Status Dates Dr. Gloria Hazel MD Primary Care Provider, Attendin g Provider Active Team Status: Active Member Role Status Dates Dr. Gloria Hazel MD Primary Care Provider Active Salvatore Leonardo PREVENTION COORDINATOR, PREVENTION COORDINATOR-C Attending Provider, Referring Pro vider Active Team Status: Inactive Member Role Status Dates Dr. Gloria Hazel MD Primary Care Provider, Referrin g Provider Active Dr. Vlad Alfaro DO Attending Provider Active Team Status: Inactive Member Role Status Dates Dr. Gloria Hazel MD Primary Care Provider Active Dr. Frank Siu MD Attending Provider Active Team Status: Inactive Member Role Status Dates Dr. Gloria Hazel MD Primary Care Provider Active Salvatore Leonardo PREVENTION COORDINATOR, PREVENTION COORDINATOR-C Attending Provider, Referring Pro vider Active Team Status: Active Member Role Status Dates Dr. Gloria Haezl MD Primary Care Provider Active Dr. Vlad Alfaro DO Attending Provider, Referring P rovider Active Team Status: Inactive Member Role Status Dates Dr. Gloria Hazel MD Primary Care Provider Active Dr. Vlad Alfaro DO Attending Provider, Referring P rovider Active Salvatore Leonardo PREVENTION COORDINATOR, PREVENTION COORDINATOR-C Other Provider Active Team Status: Inactive Member Role Status Dates Dr. Gloria Hazel MD Primary Care Provider Active Dr. Vlad Alfaro DO Attending Provider, Referring P rovider Active Team Status: Inactive Member Role Status Dates Dr. Gloria Hazel MD Primary Care Provider Active Dr. Catalino Short MD Attending Provider Active Iliana Moon PREVENTION COORDINATOR, PREVENTION COORDINATOR-C Referring Provider Active Data Services Developer Relationship Specialty Start Date End Date Gloria Hazel [address] [facility] [address] [place] [address] PCP - General 06/02/04 Team Status: Inactive Member Role Status Dates Dr. Gloria Hazel MD Primary Care Provider Active Salvatore Leonardo PREVENTION COORDINATOR, PREVENTION COORDINATOR-C Attending Provider, Referring Pro vider Active Dr. Dayana Plasencia MD Other Provider Active Team Status: Active Member Role Status Dates Dr. Gloria Hazel MD Primary Care Provider Active Dr. Samm Womack DO Emergency Provider Active Dr. Mi Gregory MD Admit Provider, Attending Prov ider Active Team Status: Active Member Role Status Dates Dr. Gloria Hazel MD Primary Care Provider Active Dr. Samm Womack DO Emergency Provider Active Dr. Mi Gregory MD Admit Provider, Other Provider Active Dr. Melva Wheeler DO Attending Provider, Other Provide r Active Team Status: Inactive Member Role Status Dates Dr. Gloria Hzael MD Primary Care Provider Active Dr. Samm Womack DO Emergency Provider Active Dr. Mi Gregory MD Admit Provider, Other Provider Active Dr. Melva Wheeler DO Attending Provider Active Team Status: Active Member Role Status Dates Dr. Gloria Hazel MD Primary Care Provider Active Dr. Yogesh Lebron MD Admit Provider, At tending Provider, Referring Provider Active Team Status: Inactive Member Role Status Dates Dr. Gloria Hazel MD Primary Care Provider Active Dr. Josse Fish , Emergency Provider Active Team Status: Inactive Member Role Status Dates Dr. Gloria Hazel MD Primary Care Provider Active Dr. Yogesh Lebron MD Admit Provider, At tending Provider, Referring Provider Active Team Status: Inactive Member Role Status Dates Dr. Gloria Hazel MD Primary Care Provider Active Dr. Josse Fish , Attending Provider, Emergency P rovider Active Team Status: Inactive Member Role Status Dates Dr. Gloria Hazel MD Primary Care Provider, Referrin g Provider Active Dr. Jasbir Perez MD Attending Provider Active Team Status: Active Member Role Status Dates Dr. Gloria Hazel MD Primary Care Provider Active Dr. Halle Dale DO Emergency Provider Active Dr. Melva Wheeler , Admit Provider, Attending Provide r Active Team Status: Active Member Role Status Dates Dr. Gloria Hazel MD Primary Care Provider Active Dr. Hlale Dale DO Emergency Provider Active Dr. Melva Wheeler , Admit Provider, Att ending Provider, Other Provider Active Team Status: Inactive Member Role Status Dates Dr. Gloria Hazel MD Primary Care Provider Active Dr. Halle Dale , Emergency Provider Active Dr. Melva Wheeler , Admit Provider, Attending Provide r Active Team Status: Inactive Member Role Status Dates Dr. Gloria Hazel MD Primary Care Provider Active Dr. Jasbir Perez MD Attending Provider, Referring Provi roro Active Data Services Developer Relationship Specialty Start Date End Date Gloria Hazel [employer] [address] [facility] [address] [place] [address] PCP - General 06/02/04 Data Services Developer Relationship Specialty Start Date End Date NicholeGloria dodge [employer] [address] [facility] [address] [place] [address] PCP - General 06/02/04 Team Status: Active Member Role Status Dates Dr. Gloria Hazel MD Primary Care Provider Active Team Status: Inactive Member Role Status Dates Dr. Gloria Hazel MD Primary Care Provider Active Start: May 09, 2024 End: May 09, 2024 Dr. Dayana Plasencia MD Attending Provider Active Start: May 09, 2024 End: May 09, 2024 Dr. Dayana Plasencia MD Referring Provider Active Start: May 09, 2024 End: May 09, 2024 Team Status: Inactive Member Role Status Dates Dr. Gloria Hazel MD Primary Care Provider Active Start: June 24, 2024 End: June 24, 2024 Dr. Dayana Plasencia MD Attending Provider Active Start: June 24, 2024 End: June 24, 2024 Dr. Dayana Plasencia MD Referring Provider Active Start: June 24, 2024 End: June 24, 2024 Team Status: Inactive Member Role Status Dates Dr. Gloria Hazel MD Primary Care Provider Active Start: July 02, 2024 End: July 02, 2024 Dr. Dayana Plasencia MD Attending Provider Active Start: July 02, 2024 End: July 02, 2024 Dr. Dayana Plasencia MD Referring Provider Active Start: July 02, 2024 End: July 02, 2024 Team Status: Inactive Member Role Status Dates Dr. Gloria Hazel MD Primary Care Provider Active Start: July 15, 2024 End: July 15, 2024 Dr. Dayana Plasencia MD Attending Provider Active Start: July 15, 2024 End: July 15, 2024 Dr. Dayana Plasencia MD Referring Provider Active Start: July 15, 2024 End: July 15, 2024 Team Status: Inactive Member Role Status Dates Dr. Gloria Hazel MD Primary Care Provider Active Start: August 26, 2024 End: August 26, 2024 Dr. Dayana Plasencia MD Attending Provider Active Start: August 26, 2024 End: August 26, 2024 Dr. Dayana Plasencia MD Referring Provider Active Start: August 26, 2024 End: August 26, 2024 Team Status: Inactive Member Role Status Dates Dr. Gloria Hazel MD Primary Care Provider Active Start: September 12, 2024 End: September 12, 2024 Dr. Gloria Hazel MD Referring Provider Active Start: September 12, 2024 End: September 12, 2024 Dr. Jasbir Perez MD Attending Provider Active Sta rt: September 12, 2024 End: September 12, 2024 Team Status: Inactive Member Role Status Dates Dr. Gloria Hazel MD Primary Care Provider Active Start: September 16, 2024 End: September 16, 2024 Dr. Dayana Plasencia MD Attending Provider Active Start: September 16, 2024 End: September 16, 2024 Dr. Dayana Plasencia MD Referring Provider Active Start: September 16, 2024 End: September 16, 2024 Team Status: Inactive Member Role Status Dates Dr. Gloria Hazel MD Primary Care Provider Active Start: September 26, 2024 End: September 26, 2024 Dr. Gloria Hazel MD Referring Provider Active Start: September 26, 2024 End: September 26, 2024 Rui Robbins MD Attending Provider Active St art: September 26, 2024 End: September 26, 2024 Team Status: Inactive Member Role Status Dates Dr. Gloria Hazel MD Primary Care Provider Active Start: October 01, 2024 End: October 01, 2024 Dr. Lorelei Rust MD Attending Provider Active Start: October 01, 2024 End: October 01, 2024 Dr. Lorelei Rust MD Referring Provider Active Start: October 01, 2024 End: October 01, 2024 Team Status: Active Member Role Status Dates Dr. Jorge Hilton MD Primary Care Provider Active Team Status: Inactive Member Role Status Dates Dr. Gloria Hazel MD Referring Provider Active Start: October 23, 2024 End: October 23, 2024 Dr. Jem Mirza MD Attending Provider Active Start: October 23, 2024 End: October 23, 2024 Dr. Jorge Hilton MD Primary Care Provider Active Start: October 23, 2024 End: October 23, 2024 Team Status: Active Member Role Status Dates Rui Robbins MD Attending Provider Active St art: October 24, 2024 Rui Robbins MD Referring Provider Active St art: October 24, 2024 Dr. Jorge Hilton MD Primary Care Provider Active Start: October 24, 2024 Team Status: Inactive Member Role Status Dates Dr. Dayana Plasencia MD Attending Provider Active Start: October 25, 2024 End: October 25, 2024 Dr. Dayana Plasencia MD Referring Provider Active Start: October 25, 2024 End: October 25, 2024 Dr. Jorge Hilton MD Primary Care Provider Active Start: October 25, 2024 End: October 25, 2024 Team Status: Inactive Member Role Status Dates Rui Robbins MD Attending Provider Active St art: October 24, 2024 End: October 24, 2024 Rui Robbins MD Referring Provider Active St art: October 24, 2024 End: October 24, 2024 Dr. Jorge Hilton MD Primary Care Provider Active Start: October 24, 2024 End: October 24, 2024 Team Status: Inactive Member Role Status Dates SHOSHANA Castro Attending Provider Active Star t: November 05, 2024 End: November 05, 2024 Dr. Ra Bojorquez DPM Referring Provider Active Start: November 05, 2024 End: November 05, 2024 Dr. Jorge Hilton MD Primary Care Provider Active Start: November 05, 2024 End: November 05, 2024 Team Status: Inactive Member Role Status Dates Rui Robbins MD Attending Provider Active St art: November 06, 2024 End: November 06, 2024 Rui Robbins MD Referring Provider Active St art: November 06, 2024 End: November 06, 2024 Dr. Jorge Hilton MD Primary Care Provider Active Start: November 06, 2024 End: November 06, 2024 Team Status: Active Member Role/Relationship Status Dates Dr. Jorge Hilton MD Primary Care Provider Active Team Status: Inactive Member Role/Relationship Status Dates Dr. Gloria Hazel MD Primary Care Provider Active Start: August 26, 2024 End: August 26, 2024 Dr. Dayana Plasencia MD Attending Provider Active Start: August 26, 2024 End: August 26, 2024 Dr. Dayana Plasencia MD Referring Provider Active Start: August 26, 2024 End: August 26, 2024 Team Status: Inactive Member Role/Relationship Status Dates Dr. Gloria Hazel MD Primary Care Provider Active Start: September 12, 2024 End: September 12, 2024 Dr. Gloria Hazel MD Referring Provider Active Start: September 12, 2024 End: September 12, 2024 Dr. Jasbir Perez MD Attending Provider Active Sta rt: September 12, 2024 End: September 12, 2024 Team Status: Inactive Member Role/Relationship Status Dates Dr. Gloria Hazel MD Primary Care Provider Active Start: September 16, 2024 End: September 16, 2024 Dr. Dayana Plasencia MD Attending Provider Active Start: September 16, 2024 End: September 16, 2024 Dr. Dayana Plasencia MD Referring Provider Active Start: September 16, 2024 End: September 16, 2024 Team Status: Inactive Member Role/Relationship Status Dates Dr. Gloria Hazel MD Primary Care Provider Active Start: September 26, 2024 End: September 26, 2024 Dr. Gloria Hazel MD Referring Provider Active Start: September 26, 2024 End: September 26, 2024 Rui Robbins MD Attending Provider Active St art: September 26, 2024 End: September 26, 2024 Team Status: Inactive Member Role/Relationship Status Dates Dr. Gloria Hazel MD Primary Care Provider Active Start: October 01, 2024 End: October 01, 2024 Dr. Lorelei Rust MD Attending Provider Active Start: October 01, 2024 End: October 01, 2024 Dr. Lorelei Rust MD Referring Provider Active Start: October 01, 2024 End: October 01, 2024 Team Status: Inactive Member Role/Relationship Status Dates Dr. Gloria Hazel MD Referring Provider Active Start: October 23, 2024 End: October 23, 2024 Dr. Jem Mirza MD Attending Provider Active Start: October 23, 2024 End: October 23, 2024 Dr. Jorge Hilton MD Primary Care Provider Active Start: October 23, 2024 End: October 23, 2024 Team Status: Inactive Member Role/Relationship Status Dates Rui Robbins MD Attending Provider Active St art: October 24, 2024 End: October 24, 2024 Rui Robbins MD Referring Provider Active St art: October 24, 2024 End: October 24, 2024 Dr. Jorge Hilton MD Primary Care Provider Active Start: October 24, 2024 End: October 24, 2024 Team Status: Inactive Member Role/Relationship Status Dates Dr. Dayana Plasencia MD Attending Provider Active Start: October 25, 2024 End: October 25, 2024 Dr. Dayana Plasencia MD Referring Provider Active Start: October 25, 2024 End: October 25, 2024 Dr. Jorge Hilton MD Primary Care Provider Active Start: October 25, 2024 End: October 25, 2024 Team Status: Inactive Member Role/Relationship Status Dates SHOSHANA Castro Attending Provider Active Star t: November 05, 2024 End: November 05, 2024 Dr. Ra Bojorquez DPM Referring Provider Active Start: November 05, 2024 End: November 05, 2024 Dr. Jorge Hilton MD Primary Care Provider Active Start: November 05, 2024 End: November 05, 2024 Team Status: Inactive Member Role/Relationship Status Dates Rui Robbins MD Attending Provider Active St art: November 06, 2024 End: November 06, 2024 Rui Robbins MD Referring Provider Active St art: November 06, 2024 End: November 06, 2024 Dr. Jorge Hilton MD Primary Care Provider Active Start: November 06, 2024 End: November 06, 2024 Team Status: Active Member Role/Relationship Status Dates Dr. Jorge Hilton MD Primary Care Provider Active Start: November 19, 2024 Dr. Jem Mirza MD Attending Provider Active Start: November 19, 2024 Dr. Jem Mirza MD Referring Provider Active Start: November 19, 2024 Team Status: Inactive Member Role/Relationship Status Dates Dr. Jorge Hilton MD Primary Care Provider Active Start: November 25, 2024 End: November 25, 2024 Dr. Jorge Hilton MD Referring Provider Active Start: November 25, 2024 End: November 25, 2024 Rui Robbins MD Attending Provider Active St art: November 25, 2024 End: November 25, 2024 Team Status: Inactive Member Role/Relationship Status Dates Dr. Jorge Hilton MD Primary Care Provider Active Start: November 19, 2024 End: November 19, 2024 Dr. Jem Mirza MD Attending Provider Active Start: November 19, 2024 End: November 19, 2024 Dr. Jem Mirza MD Referring Provider Active Start: November 19, 2024 End: November 19, 2024 Team Status: Inactive Member Role/Relationship Status Dates Dr. Jorge Hilton MD Primary Care Provider Active Start: December 05, 2024 End: December 05, 2024 Dr. Dayana Plasencia MD Attending Provider Active Start: December 05, 2024 End: December 05, 2024 Dr. Dayana Plasencia MD Referring Provider Active Start: December 05, 2024 End: December 05, 2024 Team Status: Active Member Role/Relationship Status Dates Dr. Gloria Hazel MD Primary Care Provider Active Start: December 12, 2024 Dr. Catalino Short MD Attending Provider Active S tart: December 12, 2024 Dr. Catalino Short MD Referring Provider Active S tart: December 12, 2024 Team Status: Inactive Member Role/Relationship Status Dates Dr. Jorge Hilton MD Primary Care Provider Active Start: December 12, 2024 End: December 12, 2024 Dr. Jorge Hilton MD Referring Provider Active Start: December 12, 2024 End: December 12, 2024 Dr. Catalino Short MD Attending Provider Active S tart: December 12, 2024 End: December 12, 2024 Team Status: Inactive Member Role/Relationship Status Dates Dr. Gloria Hazel MD Primary Care Provider Active Start: September 12, 2024 End: September 12, 2024 Dr. Glroia Hazel MD Referring Provider Active Start: September 12, 2024 End: September 12, 2024 Dr. Jasbir Perez MD Attending Provider Active Sta rt: September 12, 2024 End: September 12, 2024 Team Status: Inactive Member Role/Relationship Status Dates Dr. Gloria Hazel MD Primary Care Provider Active Start: September 16, 2024 End: September 16, 2024 Dr. Dayana Plasencia MD Attending Provider Active Start: September 16, 2024 End: September 16, 2024 Dr. Dayana Plasencia MD Referring Provider Active Start: September 16, 2024 End: September 16, 2024 Team Status: Inactive Member Role/Relationship Status Dates Dr. Gloria Hazel MD Primary Care Provider Active Start: September 26, 2024 End: September 26, 2024 Dr. Gloria Hazel MD Referring Provider Active Start: September 26, 2024 End: September 26, 2024 Rui Robbins MD Attending Provider Active St art: September 26, 2024 End: September 26, 2024 Team Status: Inactive Member Role/Relationship Status Dates Dr. Gloria Hazel MD Primary Care Provider Active Start: October 01, 2024 End: October 01, 2024 Dr. Lorelei Rust MD Attending Provider Active Start: October 01, 2024 End: October 01, 2024 Dr. Lorelei Rust MD Referring Provider Active Start: October 01, 2024 End: October 01, 2024 Team Status: Inactive Member Role/Relationship Status Dates Dr. Gloria Hazel MD Referring Provider Active Start: October 23, 2024 End: October 23, 2024 Dr. Jem Mirza MD Attending Provider Active Start: October 23, 2024 End: October 23, 2024 Dr. Jorge Hilton MD Primary Care Provider Active Start: October 23, 2024 End: October 23, 2024 Team Status: Inactive Member Role/Relationship Status Dates uRi Robbins MD Attending Provider Active St art: October 24, 2024 End: October 24, 2024 Rui Robbins MD Referring Provider Active St art: October 24, 2024 End: October 24, 2024 Dr. Jorge Hilton MD Primary Care Provider Active Start: October 24, 2024 End: October 24, 2024 Team Status: Inactive Member Role/Relationship Status Dates Dr. Dayana Plasencia MD Attending Provider Active Start: October 25, 2024 End: October 25, 2024 Dr. Dayana Plasencia MD Referring Provider Active Start: October 25, 2024 End: October 25, 2024 Dr. Jorge Hilton MD Primary Care Provider Active Start: October 25, 2024 End: October 25, 2024 Team Status: Inactive Member Role/Relationship Status Dates SHOSHANA Castro Attending Provider Active Star t: November 05, 2024 End: November 05, 2024 Dr. Ra Bojorquez DPM Referring Provider Active Start: November 05, 2024 End: November 05, 2024 Dr. Jorge Hilton MD Primary Care Provider Active Start: November 05, 2024 End: November 05, 2024 Team Status: Inactive Member Role/Relationship Status Dates Rui Robbins MD Attending Provider Active St art: November 06, 2024 End: November 06, 2024 Rui Robbins MD Referring Provider Active St art: November 06, 2024 End: November 06, 2024 Dr. Jorge Hilton MD Primary Care Provider Active Start: November 06, 2024 End: November 06, 2024 Team Status: Inactive Member Role/Relationship Status Dates Dr. Jorge Hilton MD Primary Care Provider Active Start: November 19, 2024 End: November 19, 2024 Dr. Jem Mirza MD Attending Provider Active Start: November 19, 2024 End: November 19, 2024 Dr. Jem Mirza MD Referring Provider Active Start: November 19, 2024 End: November 19, 2024 Team Status: Inactive Member Role/Relationship Status Dates Dr. Jorge Hilton MD Primary Care Provider Active Start: November 25, 2024 End: November 25, 2024 Dr. Jorge Hilton MD Referring Provider Active Start: November 25, 2024 End: November 25, 2024 Rui Robbins MD Attending Provider Active St art: November 25, 2024 End: November 25, 2024 Team Status: Inactive Member Role/Relationship Status Dates Dr. Jorge Hilton MD Primary Care Provider Active Start: December 05, 2024 End: December 05, 2024 Dr. Dayana Plasencia MD Attending Provider Active Start: December 05, 2024 End: December 05, 2024 Dr. Dayana Plasencia MD Referring Provider Active Start: December 05, 2024 End: December 05, 2024 Team Status: Active Member Role/Relationship Status Dates Dr. Gloria Hazel MD Primary Care Provider Active Start: December 12, 2024 Dr. Catalino Short MD Attending Provider Active S tart: December 12, 2024 Dr. Catalino Short MD Referring Provider Active S tart: December 12, 2024 Team Status: Inactive Member Role/Relationship Status Dates Dr. Jorge Hilton MD Primary Care Provider Active Start: December 12, 2024 End: December 12, 2024 Dr. Jorge Hilton MD Referring Provider Active Start: December 12, 2024 End: December 12, 2024 Dr. Catalino Short MD Attending Provider Active S tart: December 12, 2024 End: December 12, 2024 Team Status: Inactive Member Role/Relationship Status Dates Dr. Jorge Hilton MD Primary Care Provider Active Start: December 24, 2024 End: December 24, 2024 Dr. Jem Mriza MD Attending Provider Active Start: December 24, 2024 End: December 24, 2024 Dr. Jem Mirza MD Referring Provider Active Start: December 24, 2024 End: December 24, 2024 Team Status: Active Member Role/Relationship Status Dates Dr. Jorge Hilton MD Primary Care Provider Active Start: December 24, 2024 Dr. Jem Mirza MD Attending Provider Active Start: December 24, 2024 Team Status: Inactive Member Role/Relationship Status Dates Dr. Jorge Hilton MD Primary Care Provider Active Start: January 08, 2025 End: January 08, 2025 Dr. Tran Stewart MD Emergency Provider Active S tart: January 08, 2025 End: January 08, 2025 Team Status: Inactive Member Role/Relationship Status Dates Dr. Gloria Hazel MD Primary Care Provider Active Start: September 16, 2024 End: September 16, 2024 Dr. Dayana Plasencia MD Attending Provider Active Start: September 16, 2024 End: September 16, 2024 Dr. Dayana Plasencia MD Referring Provider Active Start: September 16, 2024 End: September 16, 2024 Team Status: Inactive Member Role/Relationship Status Dates Dr. Gloria Hazel MD Primary Care Provider Active Start: September 26, 2024 End: September 26, 2024 Dr. Gloria Hazel MD Referring Provider Active Start: September 26, 2024 End: September 26, 2024 Rui Robbins MD Attending Provider Active St art: September 26, 2024 End: September 26, 2024 Team Status: Inactive Member Role/Relationship Status Dates Dr. Gloria Hazel MD Primary Care Provider Active Start: October 01, 2024 End: October 01, 2024 Dr. Lorelei Rust MD Attending Provider Active Start: October 01, 2024 End: October 01, 2024 Dr. Lorelei Rust MD Referring Provider Active Start: October 01, 2024 End: October 01, 2024 Team Status: Inactive Member Role/Relationship Status Dates Dr. Gloria Hazel MD Referring Provider Active Start: October 23, 2024 End: October 23, 2024 Dr. Jem Mirza MD Attending Provider Active Start: October 23, 2024 End: October 23, 2024 Dr. Jorge Hilton MD Primary Care Provider Active Start: October 23, 2024 End: October 23, 2024 Team Status: Inactive Member Role/Relationship Status Dates Rui Robbins MD Attending Provider Active St art: October 24, 2024 End: October 24, 2024 Rui Robbins MD Referring Provider Active St art: October 24, 2024 End: October 24, 2024 Dr. Jorge Hilton MD Primary Care Provider Active Start: October 24, 2024 End: October 24, 2024 Team Status: Inactive Member Role/Relationship Status Dates Dr. Dayana Plasencia MD Attending Provider Active Start: October 25, 2024 End: October 25, 2024 Dr. Dayana Plasencia MD Referring Provider Active Start: October 25, 2024 End: October 25, 2024 Dr. Jorge Hilton MD Primary Care Provider Active Start: October 25, 2024 End: October 25, 2024 Team Status: Inactive Member Role/Relationship Status Dates SHOSHANA Castro Attending Provider Active Star t: November 05, 2024 End: November 05, 2024 Dr. Ra Bojorquez DPM Referring Provider Active Start: November 05, 2024 End: November 05, 2024 Dr. Jorge Hilton MD Primary Care Provider Active Start: November 05, 2024 End: November 05, 2024 Team Status: Inactive Member Role/Relationship Status Dates Rui Robbins MD Attending Provider Active St art: November 06, 2024 End: November 06, 2024 Rui Robbins MD Referring Provider Active St art: November 06, 2024 End: November 06, 2024 Dr. Jorge Hilton MD Primary Care Provider Active Start: November 06, 2024 End: November 06, 2024 Team Status: Inactive Member Role/Relationship Status Dates Dr. Jorge Hilton MD Primary Care Provider Active Start: November 19, 2024 End: November 19, 2024 Dr. Jem Mirza MD Attending Provider Active Start: November 19, 2024 End: November 19, 2024 Dr. Jem Mirza MD Referring Provider Active Start: November 19, 2024 End: November 19, 2024 Team Status: Inactive Member Role/Relationship Status Dates Dr. Jorge Hilton MD Primary Care Provider Active Start: November 25, 2024 End: November 25, 2024 Dr. Jorge Hilton MD Referring Provider Active Start: November 25, 2024 End: November 25, 2024 Rui Robbins MD Attending Provider Active St art: November 25, 2024 End: November 25, 2024 Team Status: Inactive Member Role/Relationship Status Dates Dr. Jorge Hilton MD Primary Care Provider Active Start: December 05, 2024 End: December 05, 2024 Dr. Dayana Plasencia MD Attending Provider Active Start: December 05, 2024 End: December 05, 2024 Dr. Dayana Plasencia MD Referring Provider Active Start: December 05, 2024 End: December 05, 2024 Team Status: Active Member Role/Relationship Status Dates Dr. Gloria Hazel MD Primary Care Provider Active Start: December 12, 2024 Dr. Catalino Short MD Attending Provider Active S tart: December 12, 2024 Dr. Catalino Short MD Referring Provider Active S tart: December 12, 2024 Team Status: Inactive Member Role/Relationship Status Dates Dr. Jorge Hilton MD Primary Care Provider Active Start: December 12, 2024 End: December 12, 2024 Dr. Jorge Hilton MD Referring Provider Active Start: December 12, 2024 End: December 12, 2024 Dr. Catalino Short MD Attending Provider Active S tart: December 12, 2024 End: December 12, 2024 Team Status: Inactive Member Role/Relationship Status Dates Dr. Jorge Hilton MD Primary Care Provider Active Start: December 24, 2024 End: December 24, 2024 Dr. Jem Mirza MD Attending Provider Active Start: December 24, 2024 End: December 24, 2024 Dr. Jem Mirza MD Referring Provider Active Start: December 24, 2024 End: December 24, 2024 Team Status: Active Member Role/Relationship Status Dates Dr. Jorge Hilton MD Primary Care Provider Active Start: December 24, 2024 Dr. Jem Mirza MD Attending Provider Active Start: December 24, 2024 Team Status: Inactive Member Role/Relationship Status Dates Dr. Jorge Hilton MD Primary Care Provider Active Start: January 08, 2025 End: January 08, 2025 Dr. Tran Stewart MD Emergency Provider Active S tart: January 08, 2025 End: January 08, 2025 Team Status: Inactive Member Role/Relationship Status Dates Dr. Dayana Plasencia MD Attending Provider Active Start: January 10, 2025 End: January 10, 2025 Dr. Dayana Plasencia MD Referring Provider Active Start: January 10, 2025 End: January 10, 2025 Dr. Jorge Hilton MD Primary Care Provider Active Start: January 10, 2025 End: January 10, 2025 Team Status: Inactive Member Role/Relationship Status Dates Dr. Gloria Hazel MD Primary Care Provider Active Start: September 26, 2024 End: September 26, 2024 Dr. Gloria Hazel MD Referring Provider Active Start: September 26, 2024 End: September 26, 2024 Rui Robbins MD Attending Provider Active St art: September 26, 2024 End: September 26, 2024 Team Status: Inactive Member Role/Relationship Status Dates Dr. Gloria Hazel MD Primary Care Provider Active Start: October 01, 2024 End: October 01, 2024 Dr. Lorelei Rust MD Attending Provider Active Start: October 01, 2024 End: October 01, 2024 Dr. Lorelei Rust MD Referring Provider Active Start: October 01, 2024 End: October 01, 2024 Team Status: Inactive Member Role/Relationship Status Dates Dr. Gloria Hazel MD Referring Provider Active Start: October 23, 2024 End: October 23, 2024 Dr. Jem Mirza MD Attending Provider Active Start: October 23, 2024 End: October 23, 2024 Dr. Jorge Hilton MD Primary Care Provider Active Start: October 23, 2024 End: October 23, 2024 Team Status: Inactive Member Role/Relationship Status Dates Rui Robbins MD Attending Provider Active St art: October 24, 2024 End: October 24, 2024 Rui Robbins MD Referring Provider Active St art: October 24, 2024 End: October 24, 2024 Dr. Jorge Hilton MD Primary Care Provider Active Start: October 24, 2024 End: October 24, 2024 Team Status: Inactive Member Role/Relationship Status Dates Dr. Dayana Plasencia MD Attending Provider Active Start: October 25, 2024 End: October 25, 2024 Dr. Dayana Plasencia MD Referring Provider Active Start: October 25, 2024 End: October 25, 2024 Dr. Jorge Hilton MD Primary Care Provider Active Start: October 25, 2024 End: October 25, 2024 Team Status: Inactive Member Role/Relationship Status Dates SHOSHANA Castro Attending Provider Active Star t: November 05, 2024 End: November 05, 2024 Dr. Ra Bojorquez DPM Referring Provider Active Start: November 05, 2024 End: November 05, 2024 Dr. Jorge Hilton MD Primary Care Provider Active Start: November 05, 2024 End: November 05, 2024 Team Status: Inactive Member Role/Relationship Status Dates Rui Robbins MD Attending Provider Active St art: November 06, 2024 End: November 06, 2024 Rui Robbins MD Referring Provider Active St art: November 06, 2024 End: November 06, 2024 Dr. Jorge Hilton MD Primary Care Provider Active Start: November 06, 2024 End: November 06, 2024 Team Status: Inactive Member Role/Relationship Status Dates Dr. Jorge Hilton MD Primary Care Provider Active Start: November 19, 2024 End: November 19, 2024 Dr. Jem Mirza MD Attending Provider Active Start: November 19, 2024 End: November 19, 2024 Dr. Jem Mirza MD Referring Provider Active Start: November 19, 2024 End: November 19, 2024 Team Status: Inactive Member Role/Relationship Status Dates Dr. Jorge Hilton MD Primary Care Provider Active Start: November 25, 2024 End: November 25, 2024 Dr. Jorge Hilton MD Referring Provider Active Start: November 25, 2024 End: November 25, 2024 Rui Robbins MD Attending Provider Active St art: November 25, 2024 End: November 25, 2024 Team Status: Inactive Member Role/Relationship Status Dates Dr. Jorge Hilton MD Primary Care Provider Active Start: December 05, 2024 End: December 05, 2024 Dr. Dayana Plasencia MD Attending Provider Active Start: December 05, 2024 End: December 05, 2024 Dr. Dayana Plasencia MD Referring Provider Active Start: December 05, 2024 End: December 05, 2024 Team Status: Active Member Role/Relationship Status Dates Dr. Gloria Hazel MD Primary Care Provider Active Start: December 12, 2024 Dr. Catalino Short MD Attending Provider Active S tart: December 12, 2024 Dr. Catalino Short MD Referring Provider Active S tart: December 12, 2024 Team Status: Inactive Member Role/Relationship Status Dates Dr. Jorge Hilton MD Primary Care Provider Active Start: December 12, 2024 End: December 12, 2024 Dr. Jorge Hilton MD Referring Provider Active Start: December 12, 2024 End: December 12, 2024 Dr. Catalino Short MD Attending Provider Active S tart: December 12, 2024 End: December 12, 2024 Team Status: Inactive Member Role/Relationship Status Dates Dr. Jorge Hilton MD Primary Care Provider Active Start: December 24, 2024 End: December 24, 2024 Dr. Jem Mirza MD Attending Provider Active Start: December 24, 2024 End: December 24, 2024 Dr. Jem Mirza MD Referring Provider Active Start: December 24, 2024 End: December 24, 2024 Team Status: Active Member Role/Relationship Status Dates Dr. Jorge Hilton MD Primary Care Provider Active Start: December 24, 2024 Dr. Jem Mirza MD Attending Provider Active Start: December 24, 2024 Team Status: Inactive Member Role/Relationship Status Dates Dr. Jorge Hilton MD Primary Care Provider Active Start: January 08, 2025 End: January 08, 2025 Dr. Tran Stewart MD Attending Provider Active S tart: January 08, 2025 End: January 08, 2025 Dr. Tran Stewart MD Emergency Provider Active S tart: January 08, 2025 End: January 08, 2025 Team Status: Inactive Member Role/Relationship Status Dates Dr. Dayana Plasencia MD Attending Provider Active Start: January 10, 2025 End: January 10, 2025 Dr. Dayana Plasencia MD Referring Provider Active Start: January 10, 2025 End: January 10, 2025 Dr. Jorge Hilton MD Primary Care Provider Active Start: January 10, 2025 End: January 10, 2025 Team Status: Inactive Member Role/Relationship Status Dates Dr. Jorge Hilton MD Primary Care Provider Active Start: January 13, 2025 End: January 13, 2025 Dr. oJrge Hilton MD Attending Provider Active Start: January 13, 2025 End: January 13, 2025 Data Services Developer Relationship Specialty Start Date End Date Ilir Gloria Kodak [address] [place] [address] PCP - General 06/02/04 Data Services Developer Relationship Specialty Start Date End Date Gloria Hazel [address] [place] [address] PCP - General 06/02/04 Data Services Developer Relationship Specialty Start Date End Date Jorge Hilton MD [address] [place] [address] PCP - General Family Medicine 02/10/25 Data Services Developer Relationship Specialty Start Date End Date Jorge Hilton MD [address] [place] [address] PCP - General Family Medicine 02/10/25 Data Services Developer Relationship Specialty Start Date End Date Jorge Hilton MD [address] [place] [address] PCP - General Family Medicine 02/10/25 Data Services Developer Relationship Specialty Start Date End Date Jorge Hilton MD [address] [place] [address] PCP - General Family Medicine 02/10/25 Data Services Developer Relationship Specialty Start Date End Date Jorge Hilton MD [address] [place] [address] PCP - General Family Medicine 02/10/25 Team Status: Active Member Role/Relationship Status Dates Dr. Jorge Hilton MD Primary care physician Active Team Status: Inactive Member Role/Relationship Status Dates SHOSHANA Castro Attending physician Active Sta rt: November 05, 2024 End: November 05, 2024 Dr. Ra Bojorquez DPM Referring Provider Active Start: November 05, 2024 End: November 05, 2024 Dr. Jorge Hilton MD Primary care physician Active Start: November 05, 2024 End: November 05, 2024 Team Status: Inactive Member Role/Relationship Status Dates Rui Robbins MD Attending physician Active S tart: November 06, 2024 End: November 06, 2024 Rui Robbins MD Referring Provider Active St art: November 06, 2024 End: November 06, 2024 Dr. Jorge Hilton MD Primary care physician Active Start: November 06, 2024 End: November 06, 2024 Team Status: Inactive Member Role/Relationship Status Dates Dr. Jorge Hilton MD Primary care physician Active Start: November 19, 2024 End: November 19, 2024 Dr. Jem Mirza MD Attending physician Active Start: November 19, 2024 End: November 19, 2024 Dr. Jem Mirza MD Referring Provider Active Start: November 19, 2024 End: November 19, 2024 Team Status: Inactive Member Role/Relationship Status Dates Dr. Jorge Hilton MD Primary care physician Active Start: November 25, 2024 End: November 25, 2024 Dr. Jorge Hilton MD Referring Provider Active Start: November 25, 2024 End: November 25, 2024 Rui Robbins MD Attending physician Active S tart: November 25, 2024 End: November 25, 2024 Team Status: Inactive Member Role/Relationship Status Dates Dr. Jorge Hilton MD Primary care physician Active Start: December 05, 2024 End: December 05, 2024 Dr. Dayana Plasencia MD Attending physician Active Start: December 05, 2024 End: December 05, 2024 Dr. Dayana Plasencia MD Referring Provider Active Start: December 05, 2024 End: December 05, 2024 Team Status: Active Member Role/Relationship Status Dates Dr. Gloria Hazel MD Primary care physician Active Start: December 12, 2024 Dr. Catalino Short MD Attending physician Active Start: December 12, 2024 Dr. Catalino Short MD Referring Provider Active S tart: December 12, 2024 Team Status: Inactive Member Role/Relationship Status Dates Dr. Jorge Hilton MD Primary care physician Active Start: December 12, 2024 End: December 12, 2024 Dr. Jorge Hilton MD Referring Provider Active Start: December 12, 2024 End: December 12, 2024 Dr. Catalino Short MD Attending physician Active Start: December 12, 2024 End: December 12, 2024 Team Status: Inactive Member Role/Relationship Status Dates Dr. Jorge Hilton MD Primary care physician Active Start: December 24, 2024 End: December 24, 2024 Dr. Jem Mirza MD Attending physician Active Start: December 24, 2024 End: December 24, 2024 Dr. eJm Mirza MD Referring Provider Active Start: December 24, 2024 End: December 24, 2024 Team Status: Active Member Role/Relationship Status Dates Dr. Jorge Hilton MD Primary care physician Active Start: December 24, 2024 Dr. Jem Mirza MD Attending physician Active Start: December 24, 2024 Team Status: Inactive Member Role/Relationship Status Dates Dr. Jorge Hilotn MD Primary care physician Active Start: January 08, 2025 End: January 08, 2025 Dr. Tran Stewart MD Attending physician Active Start: January 08, 2025 End: January 08, 2025 Dr. Tran Stewart MD Emergency Department Physician Ac tive Start: January 08, 2025 End: January 08, 2025 Team Status: Inactive Member Role/Relationship Status Dates Dr. Dayana Plasencia MD Attending physician Active Start: January 10, 2025 End: January 10, 2025 Dr. Dayana Plasencia MD Referring Provider Active Start: January 10, 2025 End: January 10, 2025 Dr. Jorge Hilton MD Primary care physician Active Start: January 10, 2025 End: January 10, 2025 Team Status: Inactive Member Role/Relationship Status Dates Dr. Jorge Hilton MD Primary care physician Active Start: January 13, 2025 End: January 13, 2025 Dr. Jorge Hilton MD Attending physician Active Start: January 13, 2025 End: January 13, 2025 Team Status: Inactive Member Role/Relationship Status Dates Dr. Jorge Hilton MD Primary care physician Active Start: February 17, 2025 End: February 17, 2025 Rui Robbins MD Attending physician Active S tart: February 17, 2025 End: February 17, 2025 Rui Robbins MD Referring Provider Active St art: February 17, 2025 End: February 17, 2025 Team Status: Inactive Member Role/Relationship Status Dates Dr. Jorge Hilton MD Primary care physician Active Start: November 25, 2024 End: November 25, 2024 Dr. Jorge Hilton MD Referring Provider Active Start: November 25, 2024 End: November 25, 2024 Riu Robbins MD Attending physician Active S tart: November 25, 2024 End: November 25, 2024 Team Status: Inactive Member Role/Relationship Status Dates Dr. Jorge Hilton MD Primary care physician Active Start: December 05, 2024 End: December 05, 2024 Dr. Dayana Plasencia MD Attending physician Active Start: December 05, 2024 End: December 05, 2024 Dr. Dayana Plasencia MD Referring Provider Active Start: December 05, 2024 End: December 05, 2024 Team Status: Active Member Role/Relationship Status Dates Dr. Gloria Hazel MD Primary care physician Active Start: December 12, 2024 Dr. Catalino Short MD Attending physician Active Start: December 12, 2024 Dr. Catalino Short MD Referring Provider Active S tart: December 12, 2024 Team Status: Inactive Member Role/Relationship Status Dates Dr. Jorge Hilton MD Primary care physician Active Start: December 12, 2024 End: December 12, 2024 Dr. Jorge Hilton MD Referring Provider Active Start: December 12, 2024 End: December 12, 2024 Dr. Catalino Short MD Attending physician Active Start: December 12, 2024 End: December 12, 2024 Team Status: Inactive Member Role/Relationship Status Dates Dr. Jorge Hilton MD Primary care physician Active Start: December 24, 2024 End: December 24, 2024 Dr. Jem Mirza MD Attending physician Active Start: December 24, 2024 End: December 24, 2024 Dr. Jem Mirza MD Referring Provider Active Start: December 24, 2024 End: December 24, 2024 Team Status: Active Member Role/Relationship Status Dates Dr. Jorge Hilton MD Primary care physician Active Start: December 24, 2024 Dr. Jem Mirza MD Attending physician Active Start: December 24, 2024 Team Status: Inactive Member Role/Relationship Status Dates Dr. Jorge Hilton MD Primary care physician Active Start: January 08, 2025 End: January 08, 2025 Dr. Tran Stewart MD Attending physician Active Start: January 08, 2025 End: January 08, 2025 Dr. Tran Stewart MD Emergency Department Physician Ac tive Start: January 08, 2025 End: January 08, 2025 Team Status: Inactive Member Role/Relationship Status Dates Dr. Dayana Plasencia MD Attending physician Active Start: January 10, 2025 End: January 10, 2025 Dr. Dayana Plasencia MD Referring Provider Active Start: January 10, 2025 End: January 10, 2025 Dr. Jorge Hilton MD Primary care physician Active Start: January 10, 2025 End: January 10, 2025 Team Status: Inactive Member Role/Relationship Status Dates Dr. Jorge Hilton MD Primary care physician Active Start: January 13, 2025 End: January 13, 2025 Dr. Jorge Hilton MD Attending physician Active Start: January 13, 2025 End: January 13, 2025 Team Status: Inactive Member Role/Relationship Status Dates Dr. Jorge Hilton MD Primary care physician Active Start: February 17, 2025 End: February 17, 2025 Rui Robbins MD Attending physician Active S tart: February 17, 2025 End: February 17, 2025 Rui Robbins MD Referring Provider Active St art: February 17, 2025 End: February 17, 2025 Team Status: Inactive Member Role/Relationship Status Dates Dr. Jorge Hilton MD Primary care physician Active Start: March 03, 2025 End: March 03, 2025 Dr. Dayana Plasencia MD Attending physician Active Start: March 03, 2025 End: March 03, 2025 Dr. Dayana Plasencia MD Referring Provider Active Start: March 03, 2025 End: March 03, 2025 Team Status: Inactive Member Role/Relationship Status Dates Dr. Jorge Hilton MD Primary care physician Active Start: March 12, 2025 End: March 12, 2025 Dr. Dayana Plasencia MD Attending physician Active Start: March 12, 2025 End: March 12, 2025 Dr. Dayana Plasencia MD Referring Provider Active Start: March 12, 2025 End: March 12, 2025 Team Status: Inactive Member Role/Relationship Status Dates Dr. Gloria Hazel MD Referring Provider Active Start: March 14, 2025 End: March 14, 2025 Dr. Jasbir Perez MD Attending physician Active St art: March 14, 2025 End: March 14, 2025 Dr. Jorge Hilton MD Primary care physician Active Start: March 14, 2025 End: March 14, 2025 Team Status: Inactive Member Role/Relationship Status Dates Dr. Jorge Hilton MD Primary care physician Active Start: March 19, 2025 End: March 19, 2025 Dr. Jorge Hilton MD Referring Provider Active Start: March 19, 2025 End: March 19, 2025 Salvatore Leonardo NP, PREVENTION COORDINATOR-C Attending physician Active Start: March 19, 2025 End: March 19, 2025 Team Status: Inactive Member Role/Relationship Status Dates Dr. Jorge Hilton MD Primary care physician Active Start: December 05, 2024 End: December 05, 2024 Dr. Dayana Plasencia MD Attending physician Active Start: December 05, 2024 End: December 05, 2024 Dr. Dayana Plasencia MD Referring Provider Active Start: December 05, 2024 End: December 05, 2024 Team Status: Active Member Role/Relationship Status Dates Dr. Gloria Hazel MD Primary care physician Active Start: December 12, 2024 Dr. Catalino Short MD Attending physician Active Start: December 12, 2024 Dr. Catalino Short MD Referring Provider Active S tart: December 12, 2024 Team Status: Inactive Member Role/Relationship Status Dates Dr. Jorge Hilton MD Primary care physician Active Start: December 12, 2024 End: December 12, 2024 Dr. Jorge Hilton MD Referring Provider Active Start: December 12, 2024 End: December 12, 2024 Dr. Catalino Sohrt MD Attending physician Active Start: December 12, 2024 End: December 12, 2024 Team Status: Inactive Member Role/Relationship Status Dates Dr. Jorge Hilton MD Primary care physician Active Start: December 24, 2024 End: December 24, 2024 Dr. Jem Mirza MD Attending physician Active Start: December 24, 2024 End: December 24, 2024 Dr. Jem Mirza MD Referring Provider Active Start: December 24, 2024 End: December 24, 2024 Team Status: Active Member Role/Relationship Status Dates Dr. Jorge Hilton MD Primary care physician Active Start: December 24, 2024 Dr. Jem Mirza MD Attending physician Active Start: December 24, 2024 Team Status: Inactive Member Role/Relationship Status Dates Dr. Jorge Hilton MD Primary care physician Active Start: January 08, 2025 End: January 08, 2025 Dr. Tran Stewart MD Attending physician Active Start: January 08, 2025 End: January 08, 2025 Dr. Tran Stewart MD Emergency Department Physician Ac tive Start: January 08, 2025 End: January 08, 2025 Team Status: Inactive Member Role/Relationship Status Dates Dr. Dayana Plasencia MD Attending physician Active Start: January 10, 2025 End: January 10, 2025 Dr. Dayana Plasencia MD Referring Provider Active Start: January 10, 2025 End: January 10, 2025 Dr. Jorge Hilton MD Primary care physician Active Start: January 10, 2025 End: January 10, 2025 Team Status: Inactive Member Role/Relationship Status Dates Dr. Jorge Hilton MD Primary care physician Active Start: January 13, 2025 End: January 13, 2025 Dr. Jorge Hilton MD Attending physician Active Start: January 13, 2025 End: January 13, 2025 Team Status: Inactive Member Role/Relationship Status Dates Dr. Jorge Hilton MD Primary care physician Active Start: February 17, 2025 End: February 17, 2025 Rui Robbins MD Attending physician Active S tart: February 17, 2025 End: February 17, 2025 Rui Robbins MD Referring Provider Active St art: February 17, 2025 End: February 17, 2025 Team Status: Inactive Member Role/Relationship Status Dates Dr. Jorge Hilton MD Primary care physician Active Start: March 03, 2025 End: March 03, 2025 Dr. Dayana Plasencia MD Attending physician Active Start: March 03, 2025 End: March 03, 2025 Dr. Dayana Plasencia MD Referring Provider Active Start: March 03, 2025 End: March 03, 2025 Team Status: Inactive Member Role/Relationship Status Dates Dr. Jorge Hilton MD Primary care physician Active Start: March 12, 2025 End: March 12, 2025 Dr. Dayana Plasencia MD Attending physician Active Start: March 12, 2025 End: March 12, 2025 Dr. Dayana Plasencia MD Referring Provider Active Start: March 12, 2025 End: March 12, 2025 Team Status: Inactive Member Role/Relationship Status Dates Dr. Gloria Hazel MD Referring Provider Active Start: March 14, 2025 End: March 14, 2025 Dr. Jasbir Perez MD Attending physician Active St art: March 14, 2025 End: March 14, 2025 Dr. Jorge Hilton MD Primary care physician Active Start: March 14, 2025 End: March 14, 2025 Team Status: Inactive Member Role/Relationship Status Dates Dr. Jorge Hilton MD Primary care physician Active Start: March 19, 2025 End: March 19, 2025 Dr. Jorge Hilton MD Referring Provider Active Start: March 19, 2025 End: March 19, 2025 Salvatore Leonardo PREVENTION COORDINATOR, PREVENTION COORDINATOR-C Attending physician Active Start: March 19, 2025 End: March 19, 2025 Team Status: Active Member Role/Relationship Status Dates Dr. Gloria Hazel MD Primary care physician Active Start: December 12, 2024 Dr. Catalino Short MD Attending physician Active Start: December 12, 2024 Dr. Catalino Short MD Referring Provider Active S tart: December 12, 2024 Team Status: Inactive Member Role/Relationship Status Dates Dr. Jorge Hilton MD Primary care physician Active Start: December 12, 2024 End: December 12, 2024 Dr. Jorge Hilton MD Referring Provider Active Start: December 12, 2024 End: December 12, 2024 Dr. Catalino Short MD Attending physician Active Start: December 12, 2024 End: December 12, 2024 Team Status: Inactive Member Role/Relationship Status Dates Dr. Jorge Hilton MD Primary care physician Active Start: December 24, 2024 End: December 24, 2024 Dr. Jem Mirza MD Attending physician Active Start: December 24, 2024 End: December 24, 2024 Dr. Jem Mirza MD Referring Provider Active Start: December 24, 2024 End: December 24, 2024 Team Status: Active Member Role/Relationship Status Dates Dr. Jorge Hilton MD Primary care physician Active Start: December 24, 2024 Dr. Jem Mirza MD Attending physician Active Start: December 24, 2024 Team Status: Inactive Member Role/Relationship Status Dates Dr. Jorge Hilton MD Primary care physician Active Start: January 08, 2025 End: January 08, 2025 Dr. Tran Stewart MD Attending physician Active Start: January 08, 2025 End: January 08, 2025 Dr. Tran Stewart MD Emergency Department Physician Ac tive Start: January 08, 2025 End: January 08, 2025 Team Status: Inactive Member Role/Relationship Status Dates Dr. Dayana Plasencia MD Attending physician Active Start: January 10, 2025 End: January 10, 2025 Dr. Dayana Plasencia MD Referring Provider Active Start: January 10, 2025 End: January 10, 2025 Dr. Jorge Hilton MD Primary care physician Active Start: January 10, 2025 End: January 10, 2025 Team Status: Inactive Member Role/Relationship Status Dates Dr. Jorge Hilton MD Primary care physician Active Start: January 13, 2025 End: January 13, 2025 Dr. Jorge Hilton MD Attending physician Active Start: January 13, 2025 End: January 13, 2025 Team Status: Inactive Member Role/Relationship Status Dates Dr. Jorge Hilton MD Primary care physician Active Start: February 17, 2025 End: February 17, 2025 Rui Robbins MD Attending physician Active S tart: February 17, 2025 End: February 17, 2025 Rui Robbins MD Referring Provider Active St art: February 17, 2025 End: February 17, 2025 Team Status: Inactive Member Role/Relationship Status Dates Dr. Jorge Hilton MD Primary care physician Active Start: March 03, 2025 End: March 03, 2025 Dr. Dayana Plasencia MD Attending physician Active Start: March 03, 2025 End: March 03, 2025 Dr. Dayana Plasencia MD Referring Provider Active Start: March 03, 2025 End: March 03, 2025 Team Status: Inactive Member Role/Relationship Status Dates Dr. Jorge Hilton MD Primary care physician Active Start: March 12, 2025 End: March 12, 2025 Dr. Dayana Plasencia MD Attending physician Active Start: March 12, 2025 End: March 12, 2025 Dr. Dayana Plasencia MD Referring Provider Active Start: March 12, 2025 End: March 12, 2025 Team Status: Inactive Member Role/Relationship Status Dates Dr. Gloria Hazel MD Referring Provider Active Start: March 14, 2025 End: March 14, 2025 Dr. Jasbir Perez MD Attending physician Active St art: March 14, 2025 End: March 14, 2025 Dr. Jorge Hilton MD Primary care physician Active Start: March 14, 2025 End: March 14, 2025 Team Status: Inactive Member Role/Relationship Status Dates Dr. Jorge Hilton MD Primary care physician Active Start: March 19, 2025 End: March 19, 2025 Dr. Jorge Hilton MD Referring Provider Active Start: March 19, 2025 End: March 19, 2025 Salvatore Leonardo NP PREVENTION COORDINATOR-C Attending physician Active Start: March 19, 2025 End: March 19, 2025 FOR RECORDS PERTAINING TO PATIENTS WHO ARE [...] BE BASED ON THE PRIMARY CLINICAL RECORDS. [employer] [facility]. provides no warranty or guarantee of the accuracy or completeness of information in this document.
[2025-04-16] MEDS: fentaNYL 100 MCG/2 ML Ampul 50 MCG IV (03:53)
--- NOTE | 2025-04-16 04:10 | RAD_ITS ---
PROCEDURE: PELVIS 1 OR 2 VIEWS 04/16/2025 REASON FOR EXAM: FALL TECHNIQUE: Procedure Code: RADPEL Modality: DX Procedure: PELVIS 1 OR 2 VIEWS COMPARISON: 01/08/2025. FINDINGS: Mild osteopenia of the visualized bones. Degenerative joint disease. No fracture or dislocation is seen. No lytic or blastic bone lesion is noted. RAD/Pelvis 1 or 2 Views IMPRESSION: No evidence for acute abnormality. Reading [facility]
[2025-04-16 04:49] LABS: Hematocrit 28.7 % (40-54); Hemoglobin 9.4 g/dL (13.0-16.5); Immature Granulocytes Count 0.020 X10^3/uL (0.0-0.0); Mean Corp Hgb Conc 32.8 g/dL (32-36); Mean Corpuscular Volume 103.6 fL (80-94); Mean Platelet Vol. 9.8 fl (6.2-12.0); NRBC Flagged by Analyzer 0 % (0-5); POSITIVE DIFFERENTIAL YES; Platelet Count 187 K/mm3 (150-450); RBC Distribution Width CV 16.1 % (11.6-14.6); RBC Distribution Width SD 61.1 fl (35.1-43.9); Red Blood Count 2.77 M/mm3 (4.6-6.2); White Blood Count 7.2 K/mm3 (4.4-11.0)
[2025-04-16 05:03] LABS: Prothrombin Time (Protime)PT. 16.7 SECONDS (11.7-14.9)
[2025-04-16 05:04] LABS: Partial Thromboplast Time 36.9 Seconds (24.1-36.2)
[2025-04-16 05:58] LABS: Anion Gap 10 (5-15); BUN 12 mg/dL (4-19); BUN/Creat Ratio 14.9 RATIO (10-20); CPK Total, Creatine Kinase 697 U/L (24-195); Calcium,Total 8.6 mg/dL (7.6-11.0); Carbon Dioxide 22.7 mmol/L (21.0-32.0); Chloride 101 mmol/L (98-108); Estimated Creatinine Clearance 55.66 ml/min (50-250); Glucose 112 mg/dL (70-99); Potassium 3.9 mmol/L (3.3-5.1)
--- NOTE | 2025-04-16 06:58 | EDS_ITS ---
HPI History of Present Illness Chief Complaint: Fall Informant: patient and EMS Narrative Narrative: Patient is a 84-year-old male from home with past medical history of paroxysmal atrial fibrillation hyperlipidemia severe aortic stenosis BPH and CAD. He states that it was Monday night into Monday morning around 3 AM when he lost his balance and fell striking his head. He denies any loss of consciousness. He does admit to blood thinner use on Xarelto secondary to his paroxysmal A-fib. He states that he did not have his cell phone on him and he was not wearing his life alert and therefore could not notify anyone. He states he could not get up and was just simply scooting across his floor. He states he also urinated on himself as he could not get up to go to the bathroom. He reports that he knew he had to go he was just unable to do so secondary to pain. He states he was finally able to get to his car keys and hit the car alarm which was going on for quite some time and finally neighbors came over to check on him and were able to notify EMS. Patient states he essentially hurts from his shoulders down to his back and with concern for underlying trauma comes in for evaluation [facility] Medical History (Reviewed 03/19/25 @ 15:32 by Salvatore Leonardo [employer]ENTS TRAFFIC CONTROLLER, EVENTS TRAFFIC CONTROLLER-C) Severe aortic stenosis Bruising Walker as ambulation aid Bladder disease Prostate disease Shortness of breath on exertion Leg cramps History of pain when walking History of CHF (congestive heart failure) History of atrial fibrillation History of echocardiogram Cardiology follow-up encounter Right rotator cuff tear arthropathy Right shoulder pain skilled nursing (current) use of anticoagulants Secondary adrenal insufficiency Vitamin D deficiency Chronic edema Wears glasses Former smoker History of stress test History of heart attack Anemia Coronary artery disease Atherosclerotic heart disease of [place] coronary artery without angina pectoris BPH (benign prostatic hyperplasia) GERD (gastroesophageal reflux disease) Lumbar spinal stenosis Atrial fibrillation PAT (paroxysmal atrial tachycardia) SVT (supraventricular tachycardia) Rheumatoid arthritis Home Medications ?Medication ?Instructions ?Recorded ?Last Taken ?Type tamsulosin 0.4 mg capsule 0.4 mg PO DAILY@1800 Retenti on 07/18/20 05/31/23 History golimumab 12.5 mg/mL intravenous 12.5 mg IV .[id number] i njection 05/31/22 05/29/23 History solution (Simponi ARIA) gabapentin 300 mg capsule 300 mg PO TID PRN PRN NERVE PAIN 10/20/22 05/31/23 History trazodone 100 mg tablet 100 mg PO QHS Check with estuardo preet 11/14/22 05/31/23 History doctor acetaminophen 500 mg tablet 1,000 mg (2 x 500 mg) PO Q 8 #0 tabs 01/24/23 06/01/23 Rx denosumab 60 mg/mL subcutaneous 60 mg subcut [id number] #1 mL 03/10/23 04/11/23 Rx syringe (Prolia) methotrexate sodium 2.5 mg tablet 20 mg PO QWEEK 06/0105/28/23 History sulfasalazine 500 mg 0.5 g PO Q12H 06/01/2305/31 History tablet,delayed release ascorbic acid (vitamin C) 1,000 mg 1,000 mg PO QDAY Unknown History capsule hydrocodone 7.5 mg-acetaminophen 1 tab PO BID pain Unknown History 325 mg tablet mecobalamin (vitamin B12) 2,500 2,500 mcg PO DAILY Unknown History mcg chewable tablet mirtazapine 15 mg tablet 7.5 mg PO QHS 10/23/24 Unkno wn History oxybutynin chloride 10 mg 10 mg PO QDAY 10/23/24 Unkno wn History tablet,extended release 24 hr rivaroxaban 15 mg tablet (Xarelto) 15 mg PO QDAY 90 da ys #90 tabs 10/23/24 Unkno wn Rx spironolactone 25 mg tablet 25 mg PO DAILY water pill #90 tabs 10/23/24 Unknown Rx turmeric root extract 500 mg 500 mg PO QDAY 10/23/24 U nknown History capsule atorvastatin 40 mg tablet (Lipitor) 40 mg PO QHS Katarina sterol #90 tabs 12/09/24 Unknown Rx polysaccharide iron complex 150 mg 150 mg PO QDAY 90 d ays #90 caps 12/13/24 Unknown Rx iron capsule (Ferrex) amiodarone 200 mg tablet 200 mg PO DAILY heart rate # 90 tabs 12/17/24 Unknown Rx clopidogrel 75 mg tablet 75 mg PO DAILY 04/16/25 Unkn own History finasteride 5 mg tablet 5 mg PO DAILY 04/16/25 Unkno wn History furosemide 40 mg tablet 40 mg PO .2XW 04/16/25 Unkno wn History Allergy/AdvReac Type Severity Reaction Status Date / Time No Known Allergies Allergy Verified 04/16/25 03:12 Family History (Reviewed 03/19/25 @ 15:32 by Salvatore Leonardo EVENTS TRAFFIC CONTROLLER, EVENTS TRAFFIC CONTROLLER-C) Father CVA (cerebral vascular accident) Brother CAD (coronary artery disease) CABG X 3 Mother CVA (cerebral vascular accident) Grandfather Cancer prostate Surgical History (Reviewed 03/19/25 @ 15:32 by Salvatore Leonardo [employer]ENTS TRAFFIC CONTROLLER, EVENTS TRAFFIC CONTROLLER-C) History of cardiac catheterization History of coronary artery stent placement Hx of colectomy Hx of transurethral resection of prostate Hx of laminectomy History of lumbar surgery History of coronary artery stent placement (08/06/20) H/O colonoscopy S/P left colectomy S/P appendectomy S/P hemorrhoidectomy S/P vasectomy S/P laparoscopic cholecystectomy H/O umbilical hernia repair S/P inguinal hernia repair S/P rotator cuff repair S/P cataract surgery Social History (Reviewed 03/19/25 @ 15:32 by Salvatore Leonardo EVENTS TRAFFIC CONTROLLER, EVENTS TRAFFIC CONTROLLER-C) household members: none housing: house current occupational status: retired Smoking Status: Former smoker how long ago did patient quit smokin years ago alcohol intake: never substance use type: does not use diet: low salt caffeine: Yes Type: coffee Number of servings: 4 ROS ROS ED Constitutional Constitutional ED: Denies chills or fever(s) Eyes Eyes: Denies blurry vision or change in vision ENT ENT ED: Denies sore throat Cardiovascular Cardiovascular: Reports other Details: Negative syncope ; Denies chest pain Respiratory/Chest Respiratory/Chest: Denies cough or dyspnea Gastrointestinal Gastrointestinal: Denies abdominal pain, diarrhea, nausea or vomiting Genitourinary Genitourinary ED: Denies dysuria Musculoskeletal Musculoskeletal: Reports back pain and myalgias; Denies neck pain Integumentary Reports Abrasions Neurologic Neurologic: Denies headache(s) Hematologic/Lymphatic Hematologic/Lymphatic: Reports easy bleeding and easy bruising EXAM Physical Exam Const Vital Signs: 04/16/25 03:13 04/16/25 03:13 04/16/25 04:00 Temperature 98.0 F Temperature Source Oral Pulse Rate 76 73 Respiratory Rate 18 18 Respiratory Effort Labored Respiratory Depth Shallow Blood Pressure 149/72 H 149/70 H Blood Pressure Mean 97 96 Pulse Ox 92 92 80 Oxygen Delivery Method Room Air Room Air Room Air Oxygen Flow Rate (L/min) 04/16/25 04:05 04/16/25 05:30 04/16/25 07:00 Temperature Temperature Source Pulse Rate 59 L 68 Respiratory Rate 18 18 Respiratory Effort Respiratory Depth Blood Pressure 146/62 H 133/85 H Blood Pressure Mean 90 101 Pulse Ox 96 96 90 Oxygen Delivery Method Nasal Cannula Room Air Oxygen Flow Rate (L/min) 2 04/16/25 07:41 Temperature 98 F Temperature Source Pulse Rate 68 Respiratory Rate 18 Respiratory Effort Respiratory Depth Blood Pressure 138/85 H Blood Pressure Mean 102 Pulse Ox 98 Oxygen Delivery Method Oxygen Flow Rate (L/min) Positive well nourished and well developed General Appearance ED: well developed HEENT HEENT Narrative: No signs of depressed or basilar skull fracture Patient does have soft tissue swelling and bruising across the bridge of the nose consistent with report of head trauma. Dried blood is noted within the bilateral naris but no sign of septal hematoma Eyes PERRL and EOMs intact bilaterally Eyes Narrative: No hyphema noted General Eye ED: Negative for scleral icterus Neck supple Neck Narrative: No bony deformity or step-off of the cervical spine Chest Wall palpation of chest normal Chest Narrative: Chest wall is stable; no subcutaneous emphysema noted Resp normal respiratory effort and clear to auscultation bilaterally Cardio regular rate and regular rhythm Rate: other Other Details: Heart is regular rate and rhythm Grade 4 out of 6 systolic murmur noted Radial and carotid pulses are equal and symmetric GI normal to inspection, nondistended, normoactive bowel sounds, non-tender, non-distended and no masses GI Narrative: Abdomen is soft nontender nondistended with normal active bowel sounds No pulsatile mass No peritoneal signs No overlying abrasions or ecchymosis noted Auscultation: normoactive bowel sounds Palpation: soft Back/Spine Back/Spine Narrative: No bony deformity or step-off of the thoracic or lumbar spine but there is diffuse pain on palpation of the upper and lower back. Extremity Extremity Narrative: Pelvis is stable there is no shortening or external rotation either lower extremity No sign of long bone injury such as bony deformity or joint effusion There is +2-3 pitting edema to the bilateral lower extremities which is chronic in nature; negative Homans' sign Neuro oriented x3, CN's II-XII intact bilaterally and no sensory deficits noted Neuro Narrative: Patient has generalized weakness of his occultly lifting them off the bed but is able to plantar and dorsiflex and flex at the knees and hips. No focal neurologic deficit or weakness noted Sensorium / Orientation: alert Psych mental status grossly normal Skin Skin Narrative: Abrasion and ecchymosis to the bridge of the nose consistent with history of fall No obvious areas of infection such as erythema or warmth suggest cellulitis or abscess Capillary refill is at 3 seconds [facility] MDM MDM Narrative Medical decision making narrative: Patient arrived to the ER slightly hypertensive but otherwise with stable vitals. He reported a mechanical fall and therefore I felt no need for cardiac or syncope workup. However he is on Xarelto and did strike his head and there is concern for subarachnoid or subdural hemorrhage. He also complains of pain diffusely throughout the back and there is concern for compression fracture or spondylolisthesis. In order to rule out a potential chest pathology such as pneumothorax or rib fracture CT was continued through the chest wall and pelvis x-ray was obtained to rule out a pubic rami or femoral neck fracture. Basic labs were obtained to look for a source of his reported generalized weakness and as he was on the ground there is concern for rhabdomyolysis. Patient's hemoglobin is 9.4 but this is above the transfusion value and he denied any areas of active bleeding such in his urine or stool. Platelet count is also within normal range. Other studies revealed no signs of acute kidney injury or severe electrolyte abnormality. Total CK value was 700 going against rhabdomyolysis despite his reported being on the ground for roughly 24 hours and urine showed no sign of infection. The imaging studies revealed multiple areas of degeneration and chronic changes without findings of acute trauma. Despite receiving fentanyl and Dilaudid he still reported significant pain. I had low concern for cauda equina or epidural abscess as he denied IV drug use and states that he urinated on himself simply because he could not get up because of his pain and not because he did not know he had to urinate. At this time after receiving pain medication he still has intractable pain and cannot ambulate. Since he lives at home alone and cannot ambulate or perform his activities of daily living he is not safe to return home. Therefore I discussed the case with the hospitalist who agrees to admit the patient for further evaluation and treatment at this time History & Record Review Discussion w/independent historian: EMS personnel and Patient Lab Data Attestation: I reviewed the patient's lab results. Labs: Laboratory Results - last 24 hr 04/16/25 04/16/25 03:38 07:05 WBC 7.2 RBC 2.77 L Hgb 9.4 L Hct 28.7 L MCV 103.6 H MCH 33.9 H MCHC 32.8 RDW Std Deviation 61.1 H RDW Coeff of Jaciel 16.1 H Plt Count 187 MPV 9.8 Immature Gran % (Auto) 0.300 Neut % (Auto) 83.5 H Lymph % (Auto) 7.1 L [place] % (Auto) 8.7 Eos % (Auto) 0.1 Baso % (Auto) 0.3 Absolute Neuts (auto) 6.0 Absolute Lymphs (auto) 0.51 L Nucleated RBC % 0 PT 16.7 H INR 1.3 APTT 36.9 H Sodium 133 Potassium 3.9 Chloride 101 Carbon Dioxide 22.7 Anion Gap 10 BUN 12 Creatinine 0.79 Estim Creat Clear Calc 55.66 Est GFR (MDRD) Non-Af 89 BUN/Creatinine Ratio 14.9 Glucose 112 H Calcium 8.6 Total Creatine Kinase 697 H Urine Color Yellow Urine Clarity Clear Urine pH 7.0 Ur Specific [place] 1.010 Urine Protein 15 H Urine Glucose (UA) Normal Urine Ketones 5 H Urine Occult Blood 10 H Urine Nitrite Negative Urine Bilirubin Negative Urine Urobilinogen Normal Ur Leukocyte Esterase Negative Urine RBC 0-5 SEEN Urine WBC 0 SEEN Ur Squamous Epith Cells 0-5 SEEN Urine Bacteria 0 SEEN Urine Mucus 0 SEEN Radiography Diagnostic Testing: Clinical Impression(s) from Imaging Studies Brain CT 04/16/25 03:31 IMPRESSION: No acute cerebrovascular abnormalities. If clinical symptoms persist, further evaluation with MRI may be considered as clinically warranted. No intra or extra-axial acute hemorrhage. Bilateral cerebral microvascular ischemic changes with brain involutional changes. Stable. Reading [facility] Cervical Spine CT 04/16/25 03:31 IMPRESSION: Straightened cervical curve denoting myospasm. No vertebral fractures, structural collapse or acute dislocation. Cervical spondylodegenerative changes with multilevel uncovertebral and facet arthropathy along with diffuse disc bulges inducing spinal canal and neural exit pathway compromise. No interval changes. Reading Location: [id number] Chest CT 04/16/25 03:31 IMPRESSION: A subacute nonunion fracture of the angle of the left 9th rib is noted, image 96/125 with other chronic healed left rib fractures noted. There is no definite acute bony abnormality. There is a pericardial effusion measuring 0.7 cm. There are diffuse interstitial and alveolar infiltrates which may have a component of fibrosis. There is a 0.4 cm nodule in the right lower lung, image 70/125 follow-up is recommended. Reading [facility] Lumbar Spine CT 04/16/25 03:31 IMPRESSION: Straightened lumbar lordosis denoting myospasm. 1st degree anterolisthesis of L4 Mild L1 and L5 retrolisthesis. Evidence of L1 and L5 vertebroplasty with L2 and L3 spinolaminectomy Reduced bone density with stable multilevel reduced vertebral bodies height and ventral wedging most evidently involving L2 level with currently detected T12 age indeterminate possibly subacute to old ventral wedging and subchondral sclerosis of its superior vertebral end plates. Lumbar spondylosis with multilevel facet arthropathy and diffuse posterior disc bulges inducing encroachment upon the neural exit foramina. Reading Location: [facility] Thoracic Spine CT 04/16/25 03:31 IMPRESSION: Moderate chronic compression deformities of T6 and T7 vertebral bodies with increased dorsal kyphosis. Prior vertebroplasty at L1. Reading Location: [id number] Pelvis X-Ray 04/16/25 04:10 IMPRESSION: No evidence for acute abnormality. Reading Location: [facility] Pelvis x-ray as interpreted by the emergency medicine physician reveals degenerative changes without acute fracture or dislocation Management Discussion w/another healthcare provider: Hospitalist Discharge Plan Dx/Rx/DC Orders Clinical Impression: Inability to walk, Intractable pain, Debility, Aortic valve stenosis, Closed head injury, Accidental fall, Current use of nursing home anticoagulation, Coronary artery disease, BPH (benign prostatic hyperplasia), Dyslipidemia Disposition Disposition: Acute Care Hospital [facility]
[2025-04-16 07:12] LABS: Mucous, Urine 0 SEEN /hpf (<or=2+)
[2025-04-16 07:15] LABS: Color, Urine Yellow (Yellow); Glucose, Dipstick Normal (Normal); Ketone-Dipstick 5 mg/dl (Negative); Leukocyte Esterase-Dipstick Negative /ul (Negative); Nitrite-Dipstick Negative (Negative); Occult Blood-Urine 10 /ul (Negative); Protein-Dipstick 15 mg/dl (Negative); Specific Gravity, Urine 1.010 (1.002-1.030); Urine Bilirubin Dipstick Negative (Negative)
[2025-04-16] MEDS: HYDROmorphone 0.5 MG/0.5 ML SYRINGE IV (07:16)
[2025-04-16 07:21] LABS: Red Blood Cells-Urine 0-5 SEEN /hpf (0-5); Squamous Epithelial Cells - UA 0-5 SEEN /hpf (0-5)
--- NOTE | 2025-04-16 08:35 | PCM.HP.STD ---
HPI - General General Date of Admission: 04/16/25 Date of Service: 04/16/25 Chief Complaint: Fall with pain HPI Narrative BRYCE ANN, is a 84-year-old male history of BPH, rheumatoid arthritis, A-fib, spinal stenosis, CHF, coronary artery disease, aortic stenosis who presented to [facility] ED 04/16/2025 after mechanical fall. Patient had mechanical fall at home after losing balance and was down for almost a day. Pt didn?t have his cell phone or life alert and was unable to get up. Eventually pt was able to get to his car keeps and set off the car alarm, he was subsequently brought to the ED. in the ED temp 98, heart rate 76 blood pressure 149/72, respiratory rate 92% on room air. CBC with white count 7.2, hemoglobin 9.4. BMP unremarkable except for glucose 112. UA not suggestive of UTI. UA with only 10 occult blood and 0 to 5 red cells. CPK only 697. Patient with multiple CT scans, brain CT with chronic changes but no acute changes, cervical spine CT with degenerative disc disease with diffuse disc bulges inducing spinal canal and neural exit pathway compromise, and notes annular calcification indenting the thecal and encroaching upon the related neural exit foramina. Thoracic CT with moderate chronic compression deformities at T6 and T7 with increased dorsal kyphosis and prior vertebroplasty at L1. Pelvis x-ray with no evidence of acute abnormality. Lumbar spine CT with evidence of L5 and L1 vertebroplasty with L2 and L3 spinal laminectomy. Reduced vertebral height and ventral wedging most evident on L2 and T12 possibly subacute to old ventral wedging. Also noted multilevel diffuse disc bulges indenting the thecal and inducing encroachment upon neural exit foramina. 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 Small pericardial effusion. Diffuse interstitial and alveolar infiltrates which may be fibrosis. 0.4 cm lung nodule which will need follow-up. Patient given 2 doses of pain medication in the ED however given continued pain complaints and hesitance to go home hospitalist contacted for admission for pain control and PT/OT. Patient evaluated with daughter at bedside. Patient reports mechanical fall when trying to turn on a light and that his upper body was too weak to get him back up. He noted he does have problems with chronic weakness and this is not acute and if he fell previously he also would have had a hard time getting up. Reports some tingling in his fingers that is subacute but has not changed since his fall, no numbness or tingling in lower extremities. No asymmetric weakness. Does report chronic pain in his lower back from RA and does have some chronic pain in his upper back as well, reports this pain is similar just worse and he notes he felt like his muscles were spasming when he came in but said this is starting to improve. Inquired about a pain medication drip or further pain medication, discussed that he would not be on a drip but that medications would be added to try to keep him more comfortable without sedating him or having adverse effects. Patient verbalizes understanding. He does note some bilateral chronic lower extremity edema right greater than left that is not acutely changed. Takes Lasix twice a week and is following with [facility] For a valve next month. Did confirm that patient did not have syncopal episode leading to his fall. Does note that when he was on the floor he ended up soiling himself and urinating on himself but this was due to not being able to get up to make it to the bathroom and he denies any bowel or bladder incontinence [facility]LY [facility] Medical History (Reviewed 03/19/25 @ 15:32 by Salvatore Leonardo PHYSICAL THERAPY TECHNICIAN, PHYSICAL THERAPY TECHNICIAN-C) Severe aortic stenosis Bruising Walker as ambulation aid Bladder disease Prostate disease Shortness of breath on exertion Leg cramps History of pain when walking History of CHF (congestive heart failure) History of atrial fibrillation History of echocardiogram Cardiology follow-up encounter Right rotator cuff tear arthropathy 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 shoulder 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) use of anticoagulants Secondary adrenal insufficiency Vitamin D deficiency Chronic edema Wears glasses Former smoker History of stress test History of heart attack Anemia Coronary artery disease Atherosclerotic heart disease of [place] coronary artery without angina pectoris BPH (benign prostatic hyperplasia) GERD (gastroesophageal reflux disease) Lumbar spinal stenosis Atrial fibrillation PAT (paroxysmal atrial tachycardia) SVT (supraventricular tachycardia) Rheumatoid arthritis Home Medications ?Medication ?Instructions ?Recorded ?Last Taken ?Type tamsulosin 0.4 mg capsule 0.4 mg PO DAILY@1800 Retention 07/18/20 05/31/23 History golimumab 12.5 mg/mL intravenous 12.5 mg IV .[id number] injection 05/31/22 05/29/23 History solution (Simponi ARIA) gabapentin 300 mg capsule 300 mg PO TID PRN PRN NERVE PAIN 10/20/22 05/31/23 History trazodone 100 mg tablet 100 mg PO QHS Check with primary 11/14/22 05/31/23 History doctor acetaminophen 500 mg tablet 1,000 mg (2 x 500 mg) PO Q8 #0 tabs 01/24/23 06/01/23 Rx denosumab 60 mg/mL subcutaneous 60 mg subcut [id number] #1 mL 03/10/23 04/11/23 Rx syringe (Prolia) methotrexate sodium 2.5 mg tablet 20 mg PO QWEEK 06/01/23 05/28/23 History sulfasalazine 500 mg 0.5 g PO Q12H 06/01/23 05/31/23 History tablet,delayed release ascorbic acid (vitamin C) 1,000 mg 1,000 mg PO QDAY 10/23/24 Unknown History capsule hydrocodone 7.5 mg-acetaminophen 1 tab PO BID pain 10/23/24 Unknown History 325 mg tablet mecobalamin (vitamin B12) 2,500 2,500 mcg PO DAILY 10/23/24 Unknown History mcg chewable tablet mirtazapine 15 mg tablet 7.5 mg PO QHS 10/23/24 Unknown History oxybutynin chloride 10 mg 10 mg PO QDAY 10/23/24 Unknown History tablet,extended release 24 hr rivaroxaban 15 mg tablet (Xarelto) 15 mg PO QDAY 90 days #90 tabs 10/23/24 Unknown Rx spironolactone 25 mg tablet 25 mg PO DAILY water pill #90 tabs 10/23/24 Unknown Rx turmeric root extract 500 mg 500 mg PO QDAY 10/23/24 Unknown History capsule atorvastatin 40 mg tablet (Lipitor) 40 mg PO QHS Cholesterol #90 tabs 12/09/24 Unknown Rx polysaccharide iron complex 150 mg 150 mg PO QDAY 90 days #90 caps 12/13/24 Unknown Rx iron capsule (Ferrex) amiodarone 200 mg tablet 200 mg PO DAILY heart rate #90 tabs 12/17/24 Unknown Rx clopidogrel 75 mg tablet 75 mg PO DAILY 04/16/25 Unknown History finasteride 5 mg tablet 5 mg PO DAILY 04/16/25 Unknown History furosemide 40 mg tablet 40 mg PO .2XW 04/16/25 Unknown History Allergy/AdvReac Type Severity Reaction Status Date / Time No Known Allergies Allergy Verified 04/16/25 03:12 Family History (Reviewed 03/19/25 @ 15:32 by Salvatore Leonardo PHYSICAL THERAPY TECHNICIAN, PHYSICAL THERAPY TECHNICIAN-C) Father CVA (cerebral vascular accident) Brother CAD (coronary artery disease) CABG X 3 Mother CVA (cerebral vascular accident) Grandfather Cancer prostate Surgical History (Reviewed 03/19/25 @ 15:32 by Salvatore Leonardo PHYSICAL THERAPY TECHNICIAN, PHYSICAL THERAPY TECHNICIAN-C) History of cardiac catheterization History of coronary artery stent placement Hx of colectomy Hx of transurethral resection of prostate Hx of laminectomy History of lumbar surgery History of coronary artery stent placement (08/06/20) H/O colonoscopy S/P left colectomy S/P appendectomy S/P hemorrhoidectomy S/P vasectomy S/P laparoscopic cholecystectomy H/O umbilical hernia repair S/P inguinal hernia repair S/P rotator cuff repair S/P cataract surgery Social History (Reviewed 03/19/25 @ 15:32 by Salvatore Leonardo PHYSICAL THERAPY TECHNICIAN, PHYSICAL THERAPY TECHNICIAN-C) household members: none housing: house current occupational status: retired Smoking Status: Former smoker how long ago did patient quit smokin years ago alcohol intake: never substance use type: does not use diet: low salt caffeine: Yes Type: coffee Number of servings: 4 ROS ROS Narrative General: Denies fever/chills HENT: Denies headache, denies stuffy nose, denies sore throat EYES: Denies acute changes in vision Resp: Denies cough, denies shortness of breath Cardiac: Denies chest pain GI: Denies abdominal pain, denies changes in bowel, denies nausea/vomiting : Denies changes in urination Extremity: Chronic lower extremity swelling right greater than left MSK: Diffuse weakness Neuro: Some chronic tingling in fingers Heme: Bruising on his nose and right elbow Skin: Has some bruising, some chronic lower extremity changes Psychiatric: No complaints voiced Vital Signs Vital Signs Vital Signs: 04/16/25 03:13 04/16/25 03:13 04/16/25 04:00 Temperature 98.0 F Temperature Source Oral Pulse Rate 76 73 Respiratory Rate 18 18 Respiratory Effort Labored Respiratory Depth Shallow Blood Pressure 149/72 H 149/70 H Blood Pressure Mean 97 96 Pulse Ox 92 92 80 Oxygen Delivery Method Room Air Room Air Room Air Oxygen Flow Rate (L/min) 04/16/25 04:05 04/16/25 05:30 04/16/25 07:00 Temperature Temperature Source Pulse Rate 59 L 68 Respiratory Rate 18 18 Respiratory Effort Respiratory Depth Blood Pressure 146/62 H 133/85 H Blood Pressure Mean 90 101 Pulse Ox 96 96 90 Oxygen Delivery Method Nasal Cannula Room Air Oxygen Flow Rate (L/min) 2 04/16/25 07:41 Temperature 98 F Temperature Source Pulse Rate 68 Respiratory Rate 18 Respiratory Effort Respiratory Depth Blood Pressure 138/85 H Blood Pressure Mean 102 Pulse Ox 98 Oxygen Delivery Method Oxygen Flow Rate (L/min) Weight Weight: 63.2 kg Body Mass Index (BMI) 27.2 Physical Exam Narrative General: Alert, oriented, no apparent distress HEENT: Bruising over bridge of nose, normocephalic Eyes: Anicteric, normal conjunctiva, extraocular movements intact, pupils equal Neck: Supple Respiratory: Some crackles at the bases, normal respiratory effort Cardiovascular: Regular rate and rhythm GI: Soft, nontender, nondistended Extremities: 2+ bilateral lower extremity edema right greater than left which she reports is chronic Musculoskeletal: Strength 5 - out of 5 in right upper extremity, 5 - out of 5 left upper extremity, 5 - out of 5 right lower extremity, 5 - out of 5 left lower extremity, some generalized aching on palpation of back with no point tenderness appreciated on upper back Neuro: No overt focal neurological deficits, cranial nerves II through XII intact, patient with reflexes bilateral patellar, slightly more difficult to elicit on right given increased degree of swelling, no sustained clonus in either lower extremities, no asymmetric weakness and no sensory changes different between sides Skin: Some bruising appreciated Psych: Cooperative Results Lab / Micro Data 04/16/25 03:38 04/16/25 03:38 Labs: Laboratory Results - last 24 hr 04/16/25 03:38: WBC 7.2, RBC 2.77 L, Hgb 9.4 L, Hct 28.7 L, MCV 103.6 H, MCH 33.9 H, MCHC 32.8, RDW Std Deviation 61.1 H, RDW Coeff of Jaciel 16.1 H, Plt Count 187, MPV 9.8, Immature Gran % (Auto) 0.300, Neut % (Auto) 83.5 H, Lymph % (Auto) 7.1 L, [place] % (Auto) 8.7, Eos % (Auto) 0.1, Baso % (Auto) 0.3, Absolute Neuts (auto) 6.0, Absolute Lymphs (auto) 0.51 L, Nucleated RBC % 0, PT 16.7 H, INR 1.3, APTT 36.9 H, Sodium 133, Potassium 3.9, Chloride 101, Carbon Dioxide 22.7, Anion Gap 10, BUN 12, Creatinine 0.79, Estim Creat Clear Calc 55.66, Est GFR (MDRD) Non-Af 89, BUN/Creatinine Ratio 14.9, Glucose 112 H, Calcium 8.6, Total Creatine Kinase 697 H 04/16/25 07:05: Urine Color Yellow, Urine Clarity Clear, Urine pH 7.0, Ur Specific Range 1.010, Urine Protein 15 H, Urine Glucose (UA) Normal, Urine Ketones 5 H, Urine Occult Blood 10 H, Urine Nitrite Negative, Urine Bilirubin Negative, Urine Urobilinogen Normal, Ur Leukocyte Esterase Negative, Urine RBC 0-5 SEEN, Urine WBC 0 SEEN, Ur Squamous Epith Cells 0-5 SEEN, Urine Bacteria 0 SEEN, Urine Mucus 0 SEEN Imaging Radiology Impression Brain CT 04/16/25 03:31 IMPRESSION: No acute cerebrovascular abnormalities. If clinical symptoms persist, further evaluation with MRI may be considered as clinically warranted. No intra or extra-axial acute hemorrhage. Bilateral cerebral microvascular ischemic changes with brain involutional changes. Stable. Reading Location: [place] [address] 04/16/25 03:31 IMPRESSION: Straightened cervical curve denoting myospasm. No vertebral fractures, structural collapse or acute dislocation. Cervical spondylodegenerative changes with multilevel uncovertebral and facet arthropathy along with diffuse disc bulges inducing spinal canal and neural exit pathway compromise. No interval changes. Reading Location: [place] [address] 04/16/25 03:31 IMPRESSION: A subacute nonunion fracture of the angle of the left 9th rib is noted, image 96/125 with other chronic healed left rib fractures noted. There is no definite acute bony abnormality. There is a pericardial effusion measuring 0.7 cm. There are diffuse interstitial and alveolar infiltrates which may have a component of fibrosis. There is a 0.4 cm nodule in the right lower lung, image 70/125 follow-up is recommended. Reading Location[facility] Lumbar Spine CT 04/16/25 03:31 IMPRESSION: Straightened lumbar lordosis denoting myospasm. 1st degree anterolisthesis of L4 Mild L1 and L5 retrolisthesis. Evidence of L1 and L5 vertebroplasty with L2 and L3 spinolaminectomy Reduced bone density with stable multilevel reduced vertebral bodies height and ventral wedging most evidently involving L2 level with currently detected T12 age indeterminate possibly subacute to old ventral wedging and subchondral sclerosis of its superior vertebral end plates. Lumbar spondylosis with multilevel facet arthropathy and diffuse posterior disc bulges inducing encroachment upon the neural exit foramina. Reading Location: [place] [address] 04/16/25 03:31 IMPRESSION: Moderate chronic compression deformities of T6 and T7 vertebral bodies with increased dorsal kyphosis. Prior vertebroplasty at L1. [facility] Pelvis [facility]-Ray 04/16/25 04:10 IMPRESSION: No evidence for acute abnormality. Reading Location: [place] [address] Assessment & Plan Assessment/Plan (1) Accidental fall: PLAN: Plan # Fall and generalized weakness -Patient with fall at home with difficulty getting up and generalized weakness and pain -CK6 97, has some red blood cells and occult blood but does not have large mismatch which 1 would expect with rhabdo and kidney function within normal limits -Will check liver panel -Supportive care -PT/OT -Case management consult # Multilevel degenerative changes of spine -Has multiple chronic changes -Queried T12 compression fracture subacute versus chronic -Has history of lumbar surgery -Supportive care -No neurodeficits appreciated, equal strength bilaterally in extremities, sensation equal in extremities, reports his pain is similar in distribution to his chronic pain but a little bit worse since the fall but no focal changes and appears to follow with pain management on an outpatient basis -Given no focal complaints recommend outpatient follow-up, does not seem to need acute neurosurgical intervention -Patient did report pain 10 out of 10 or above but appears comfortable on my exam, reports he was having spasms on presentation but this seems to be a little bit better, suspect patient has different pain tolerance and scale given his chronic pain and chronic opioid medications -Symptomatic care -PT/OT #Paroxysmal Atrial Fibrillation -Rate control: Amiodarone -Anticoagulation: Xarelto #Aortic stenosis -Echocardiogram with [facility] on 02/12/2025 showed LV function 64?5% and severe aortic valve stenosis with mean aortic valve gradient 34 mmHg, aortic valve area 0.61 cm?, peak aortic valve gradient 58 mm minute, and dimensionless valve index of 0.22 - Patient reportedly supposed to have a valve replaced next month # History of chronic combined heart failure -Most recent echo in our system 12/24/2024 with apical akinesis to dyskinesis with an EF of 40% and grade 2 diastolic dysfunction -Will continue patient's home medications, resume spironolactone tomorrow -daily weights, I?s and o?s #RA - Continue home medications #Hx of CAD -w/ previous stenting -Continue home medications # 0.4 cm nodule in right lower lung -Follow-up will be recommended -Follow-up with PCP on discharge #Chronic BPH with obstruction -History of TURP -Continue home medications #DVT ppx: Not indicated, patient already on Xarelto Aisha Vega MD Charges/Coding Visit Charges Inpatient E&M: 64745 Init Hosp L2
[2025-04-16] MEDS: Arthritis Pain Compound 60 CLICK TUBE TOPICAL ×2 (10:47→21:19)
[2025-04-16] MEDS: 0.9% Saline Lock 10 ML Syringe IV (21:21)
[2025-04-16] MEDS: MELATONIN 10 MG TABLET PO (21:27)
[2025-04-17 05:10] VITALS: BP 127/64; PULSE 65; RESP 18; TEMP 36.6; O2SAT 95
[2025-04-17 06:43] LABS: Hematocrit 24.8 % (40-54); Hemoglobin 8.0 g/dL (13.0-16.5); Immature Granulocytes Count 0.020 X10^3/uL (0.0-0.0); Mean Corp Hgb Conc 32.3 g/dL (32-36); Mean Corpuscular Volume 104.6 fL (80-94); Mean Platelet Vol. 9.5 fl (6.2-12.0); NRBC Flagged by Analyzer 0 % (0-5); Platelet Count 147 K/mm3 (150-450); RBC Distribution Width CV 16.2 % (11.6-14.6); RBC Distribution Width SD 62.1 fl (35.1-43.9); Red Blood Count 2.37 M/mm3 (4.6-6.2); White Blood Count 4.2 K/mm3 (4.4-11.0)
[2025-04-17 07:04] LABS: AST(SGOT) 30 U/L (<=37); Alanine Aminotransfer ALT/SGPT 18 U/L (<=46); Albumin, Serum 3.1 g/dL (3.4-4.8); Alkaline Phosphatase 56 U/L (40-129); Anion Gap 5 (5-15); BUN 15 mg/dL (4-19); BUN/Creat Ratio 18.7 RATIO (10-20); Bilirubin, Direct 0.42 mg/dL (0.00-0.30); Calcium,Total 7.9 mg/dL (7.6-11.0); Carbon Dioxide 26.9 mmol/L (21.0-32.0); Chloride 104 mmol/L (98-108); Estimated Creatinine Clearance 50.35 ml/min (50-250); Globulin 1.9 g/dL (2.2-4.2); Glucose 92 mg/dL (70-99); Potassium 3.9 mmol/L (3.3-5.1)
[2025-04-17] MEDS: Arthritis Pain Compound 60 CLICK TUBE TOPICAL ×2 (09:10→20:52)
--- NOTE | 2025-04-17 10:15 | CASEMGMT ---
Addendum entered by Brent Diaz 04/17/25 16:12: Call received from Elham @ [facility]. They can accept pt w/SOC slated for Monday. DC plan updated. Pt made aware. Original Note: RN VLAE director stars CM to room to meet w/pt for initial transition planning/care coordination assessment. RN VALE introduced self and role at [facility], pt voices understanding and consents to assessment. Pt is A/0 and answers all questions appropriately at this time. Pt sitting up in chair in room. Care providers, pharmacy, and demographics verified/updated. Strata: 2 PCP: Dr Hilton Specialists: Dr Perez, endo; Dr Plasencia, rheum; Calli, cardio; Dr Rust, pain mgnt. Pt states he has an appt May 01 @ [facility] to discuss aortic valve replacement. Preferred [facility]acy: [facility]: [place], [facility] Prescription Benefit: yes LNOK: Melanie Hanna dtr Living Arrangements: Pt lives alone in a single story home w/a basement with 1 step to enter home. Pt mostly sponge bathes. Up until pt fell a couple days ago, he was independent w/ADL's and IADL's, stating he was able to drive to get his own groceries and able to go to the basement to do his laundry. He states his daughter lives about 10 min away and that she will be assisting him w/groceries and laundry until he is able to start doing those things again. Transportation: Pt drives. He states his daughter will assist w/transportation until he is able to get around better once again. DME: grab bars in shower, shower chair, FWW, quad cane. Pt states he has a medical alert, but states it was hanging on the doorknob in the bathroom when he fell. He states he will start wearing it once he returns home, stating, I've learned my lesson. Pt does not wear home O2. Pt states if he needs O2 @ discharge he does not have a preference of DME co. HHC/SNF: Pt has had [facility] in the past. He has been to [facility] and the [facility]. Pt wishes to discharge home & states no concerns with going home at time of discharge. He would like [facility] and declines wanting list of other HHC agencies unless [facility] unable to accept him. Call to Elham @ [facility] and referral made. Pt states no further concerns/needs. Advised pt to ask CM if any further needs arise. He voices understanding. Plan: Home w/HHC. Cheri SPRINGER RN CM
[2025-04-17 11:00] VITALS: BP 94/48; PULSE 61; RESP 16; TEMP 36.7; O2SAT 95
--- NOTE | 2025-04-17 11:58 | CASEMGMT ---
Addendum entered by Brent Diaz 04/17/25 12:54: 10:15 AM: Pt made of below info re[place]. He states he is aware, but commented on how far it would be to drive to either [place] or [place] and is not interested at this time. He is established w/PCP Dr Hilton. Original Note: Social Work- received a call from [place], who reports that pt is not connected and has never received services from [place]. If pt wishes to be connected, pt can visit any local clinic to establish care. RNCM updated. FARHAN Zimmerman
[2025-04-17 17:00] VITALS: BP 110/58; PULSE 64; RESP 16; TEMP 36.6; O2SAT 94
--- NOTE | 2025-04-17 17:38 | PCM.PN.HOSP ---
Reason for Visit Chief Complaint: Fall with pain Subjective Subjective Feeling little bit better today, reports still having pain but does have chronic pain, little bit short of breath but states short of breath, no cough. Expressed frustration regarding his valve appointment being moved back multiple times and just wants to make it to May 01 so that he can then get his surgery scheduled. Objective Data Objective Data Vital Signs: Vital Signs Temp Pulse Resp BP Pulse Ox O2 Del Method O2 Flow Rate 98.0 F 61 16 94/48 L 95 Nasal Cannula 2 04/17/25 11:04/17/25 11:00 04/17/25 11:00 04/17/25 11:00 04/17/25 11:00 04/17/25 16:53 04/17/25 16:53 Oxygen Flow Rate (L/min) 2 Oxygen Delivery Method Nasal Cannula Weight: 57.1 kg Body Mass Index (BMI) 24.5 Intake & Output: Intake and Output for Last 24 Hours 04/15/25 04/16/25 04/17/25 23:59 23:59 23:59 Output Total 550 / 550 200 / 200 Balance -550 / -550 -200 / -200 Lab / Micro Data 04/17/25 06:08 04/17/25 06:08 Labs: Laboratory Results - last 24 hr 04/17/25 06:08: WBC 4.2 L, RBC 2.37 L, Hgb 8.0 L, Hct 24.8 L, MCV 104.6 H, MCH 33.8 H, MCHC 32.3, RDW Std Deviation 62.1 H, RDW Coeff of Jaciel 16.2 H, Plt Count 147 L, MPV 9.5, Immature Gran % (Auto) 0.500, Neut % (Auto) 62.6, Lymph % (Auto) 18.4 L, [place] % (Auto) 12.1 H, Eos % (Auto) 5.7 H, Baso % (Auto) 0.7, Absolute Neuts (auto) 2.7, Absolute Lymphs (auto) 0.78 L, Nucleated RBC % 0, Sodium 136, Potassium 3.9, Chloride 104, Carbon Dioxide 26.9, Anion Gap 5, BUN 15, Creatinine 0.80, Estim Creat Clear Calc 50.35, Est GFR (MDRD) Non-Af 88, BUN/Creatinine Ratio 18.7, Glucose 92, Calcium 7.9, Total Bilirubin 0.73, Direct Bilirubin 0.42 H, AST 30, ALT 18, Alkaline Phosphatase 56, Total Protein 5.0 L, Albumin 3.1 L, Globulin 1.9 L, Albumin/Globulin Ratio 1.6 Physical Exam Narrative General: Alert, oriented, no apparent distress HEENT: Atraumatic, normocephalic, lips and tips of fingers with bluish hue which he reports is not new Eyes: Anicteric, normal conjunctiva, extraocular movements grossly intact Neck: Supple Respiratory: Possibly some fine crackles in the bases, normal respiratory effort Cardiovascular: Regular rate and rhythm GI: Soft, nontender, nondistended Extremities: Improved lower extremity edema Musculoskeletal: Moving all extremities Neuro: No overt focal neurological deficits Skin: No rashes appreciated Psych: Cooperative but frustrated with his health and functional status Assessment & Plan Assessment/Plan (1) Accidental fall: PLAN: Plan # Fall and generalized weakness -Patient with fall at home with difficulty getting up and generalized weakness and pain -CK6 97, has some red blood cells and occult blood but does not have large mismatch which 1 would expect with rhabdo and kidney function within normal limits -Will check liver panel -Supportive care -PT/OT -Case management consult -04/17: Doing a little bit better today, has not go home, work with physical therapy, plan will be home tomorrow with home health set up # Pancytopenia -04/17: Today white blood cell count 4.2, hemoglobin of 8 and platelet count 147 but patient without any new or acute complaints, other lab work unremarkable. Repeat in the a.m., unclear if this could be related to one of his chronic medications # Hypoxia -04/17: Patient at times will dip into the 80s on room air so has been on 2 L nasal cannula. Does have dusky appearance to his lips and fingers but reports that is not new and is known. He is only on Lasix twice a week and patient does not appear fluid overloaded at this time as his legs actually have wrinkles now and are less swollen than they were, also down to 57 kg from 63 kg on presentation so do not think he needs Lasix. Discussed that on presentation his chest CT showed some possible chronic changes, fibrosis. Patient denies seeing a sap technical architect before, somewhat tangential at times and hard to redirect but does not seem that this has been evaluated before. He does not have any cough and his shortness of breath is chronic and has not suddenly changed so query if he has chronic fibrosis as it does not seem that he has an acute infectious process. 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 for further workup and management # Multilevel degenerative changes of spine -Has multiple chronic changes -Queried T12 compression fracture subacute versus chronic -Has history of lumbar surgery -Supportive care -No neurodeficits appreciated, equal strength bilaterally in extremities, sensation equal in extremities, reports his pain is similar in distribution to his chronic pain but a little bit worse since the fall but no focal changes and appears to follow with pain management on an outpatient basis -Given no focal complaints recommend outpatient follow-up, does not seem to need acute neurosurgical intervention -Patient did report pain 10 out of 10 or above but appears comfortable on my exam, reports he was having spasms on presentation but this seems to be a little bit better, suspect patient has different pain tolerance and scale given his chronic pain and chronic opioid medications -Symptomatic care -PT/OT -04/17: Follows with Dr. Rust, reports he gets a topical medication for his pain and has had procedures, asked about any oral pain medications that he is given and he just talked about Tylenol and a compounded product that he uses topically. He had asked about pain medication to go home with with some of his increased pain, discussed that he could be prescribed a couple of days worth but given he is in pain management he will need to discuss with his doctor before filling any prescriptions so this does not interfere with his chronic care, he verbalized his understanding. Will go home with home health #Paroxysmal Atrial Fibrillation -Rate control: Amiodarone -Anticoagulation: Xarelto -04/17: Hemoglobin little bit lower today, repeat in the a.m., no evidence of ongoing blood loss and no new complaints that would suggest any bleeding, will continue home medications at this time #Aortic stenosis -Echocardiogram with [facility] on 02/12/2025 showed LV function 64?5% and severe aortic valve stenosis with mean aortic valve gradient 34 mmHg, aortic valve area 0.61 cm?, peak aortic valve gradient 58 mm minute, and dimensionless valve index of 0.22 - Patient reportedly supposed to have a valve replaced next month -04/17: Supportive care provided regarding patient's frustration over not having his valve replaced yet # History of chronic combined heart failure -Most recent echo in our system 12/24/2024 with apical akinesis to dyskinesis with an EF of 40% and grade 2 diastolic dysfunction -Will continue patient's home medications, resume spironolactone tomorrow -daily weights, I?s and o?s -04/17: Continue home regimen, actually appears patient has lost weight and legs have wrinkles on them at this time, appears less overloaded than he did on presentation Chronic medical problems and/or problems not being actively addressed during today's encounter: #RA - Continue home medications #Hx of CAD -w/ previous stenting -Continue home medications # 0.4 cm nodule in right lower lung -Follow-up will be recommended -Follow-up with PCP on discharge #Chronic BPH with obstruction -History of TURP -Continue home medications #DVT ppx: Not indicated, patient already on Xarelto Aisha Vega MD Charges/Coding Visit Charges Inpatient E&M: 57656 Subs Hosp L2
[2025-04-17 18:56] VITALS: O2SAT 94
[2025-04-17 20:30] VITALS: BP 120/60; PULSE 57; RESP 18; TEMP 36.4; O2SAT 99
[2025-04-17] MEDS: MELATONIN 10 MG TABLET PO (20:51)
[2025-04-18] VITALS (7 sets, daily range): BP systolic 101–114; BP diastolic 51–63; PULSE 60–71; RESP 16–18; TEMP 36.5–37.4; O2SAT 2–97; BMI 24.2
[2025-04-18 06:56] LABS: Hematocrit 24.4 % (40-54); Hemoglobin 7.7 g/dL (13.0-16.5); Immature Granulocytes Count 0.020 X10^3/uL (0.0-0.0); Mean Corp Hgb Conc 31.6 g/dL (32-36); Mean Corpuscular Volume 106.1 fL (80-94); Mean Platelet Vol. 9.6 fl (6.2-12.0); NRBC Flagged by Analyzer 0 % (0-5); Platelet Count 150 K/mm3 (150-450); RBC Distribution Width CV 15.9 % (11.6-14.6); RBC Distribution Width SD 61.3 fl (35.1-43.9); Red Blood Count 2.30 M/mm3 (4.6-6.2); White Blood Count 5.1 K/mm3 (4.4-11.0)
[2025-04-18 07:27] LABS: Anion Gap 7 (5-15); BUN 14 mg/dL (4-19); BUN/Creat Ratio 20.5 RATIO (10-20); Calcium,Total 8.1 mg/dL (7.6-11.0); Carbon Dioxide 26.4 mmol/L (21.0-32.0); Chloride 104 mmol/L (98-108); Estimated Creatinine Clearance 50.35 ml/min (50-250); Glucose 98 mg/dL (70-99); Potassium 4.0 mmol/L (3.3-5.1)
[2025-04-18] MEDS: Arthritis Pain Compound 60 CLICK TUBE TOPICAL ×2 (09:12→20:31)
[2025-04-18] MEDS: Senna/Docusate Sodium 1 Tablet 2 TABLET PO ×2 (09:34→09:35)
--- NOTE | 2025-04-18 11:47 | CASEMGMT ---
Social Work SW provided the patient with resources- home delivered meals, Arjay and PP caregivers list. BEN Álvarez
--- NOTE | 2025-04-18 18:35 | PCM.PN.HOSP ---
Reason for Visit Chief Complaint: Fall with pain Subjective Subjective Patient required 5 L with ambulation at 2 at rest, still has pain complaints Objective Data Objective Data Vital Signs: Vital Signs Temp Pulse Resp BP Pulse Ox O2 Del Method O2 Flow Rate 97.7 F L 71 16 108/63 89 Room Air 4 04/18/25 15:00 04/18/25 15:00 04/18/25 15:00 04/18/25 15:00 04/18/25 16:26 04/18/25 16:26 04/18/25 16:03 Oxygen Flow Rate (L/min) 4 Oxygen Delivery Method Room Air Weight: 56.2 kg Body Mass Index (BMI) 24.2 Intake & Output: Intake and Output for Last 24 Hours 04/16/25 04/17/25 04/18/25 23:59 23:59 23:59 Intake Total 50 / 50 Output Total 550 / 550 200 / 350 150 / 150 Balance -550 / -550 -200 / -350 -100 / -100 Lab / Micro Data 04/18/25 06:06 04/18/25 06:06 Labs: Laboratory Results - last 24 hr 04/18/25 06:06: WBC 5.1, RBC 2.30 L, Hgb 7.7 L, Hct 24.4 L, MCV 106.1 H, MCH 33.5 H, MCHC 31.6 L, RDW Std Deviation 61.3 H, RDW Coeff of Jaciel 15.9 H, Plt Count 150, MPV 9.6, Immature Gran % (Auto) 0.400, Neut % (Auto) 65.8, Lymph % (Auto) 16.6 L, [place] % (Auto) 12.5 H, Eos % (Auto) 4.1, Baso % (Auto) 0.6, Absolute Neuts (auto) 3.4, Absolute Lymphs (auto) 0.85, Nucleated RBC % 0, Sodium 137, Potassium 4.0, Chloride 104, Carbon Dioxide 26.4, Anion Gap 7, BUN 14, Creatinine 0.69 L, Estim Creat Clear Calc 50.35, Est GFR (MDRD) Non-Af 92, BUN/Creatinine Ratio 20.5 H, Glucose 98, Calcium 8.1 Physical Exam Narrative General: Alert, oriented, no apparent distress HEENT: Atraumatic, normocephalic, lips and tips of fingers with bluish hue which he reports is not new Eyes: Anicteric, normal conjunctiva, extraocular movements grossly intact Neck: Supple Respiratory: Possibly some fine crackles in the bases, normal respiratory effort Cardiovascular: Regular rate and rhythm GI: Soft, nontender, nondistended Extremities: Further improved lower extremity edema Musculoskeletal: Moving all extremities Neuro: No overt focal neurological deficits Skin: No rashes appreciated Psych: Cooperative but frustrated with his health and functional status Assessment & Plan Assessment/Plan (1) Accidental fall: PLAN: Plan # Fall and generalized weakness -Patient with fall at home with difficulty getting up and generalized weakness and pain -CK6 97, has some red blood cells and occult blood but does not have large mismatch which 1 would expect with rhabdo and kidney function within normal limits -Will check liver panel -Supportive care -PT/OT -Case management consult -04/17: Doing a little bit better today, has not go home, work with physical therapy, plan will be home tomorrow with home health set up -04/18: Given new start of the medication with patient's chronic medical problems will observe overnight, discussed that he will be discharged tomorrow if he is tolerating # Pancytopenia -04/17: Today white blood cell count 4.2, hemoglobin of 8 and platelet count 147 but patient without any new or acute complaints, other lab work unremarkable. Repeat in the a.m., unclear if this could be related to one of his chronic medications -04/18: White count and platelets within normal range today, hemoglobin 7.7 and yesterday was 8, virtually unchanged. No acute management or workup necessary at this time # Hypoxia -04/17: Patient at times will dip into the 80s on room air so has been on 2 L nasal cannula. Does have dusky appearance to his lips and fingers but reports that is not new and is known. He is only on Lasix twice a week and patient does not appear fluid overloaded at this time as his legs actually have wrinkles now and are less swollen than they were, also down to 57 kg from 63 kg on presentation so do not think he needs Lasix. Discussed that on presentation his chest CT showed some possible chronic changes, fibrosis. Patient denies seeing a data management analyst before, somewhat tangential at times and hard to redirect but does not seem that this has been evaluated before. He does not have any cough and his shortness of breath is chronic and has not suddenly changed so query if he has chronic fibrosis as it does not seem that he has an acute infectious process. 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 Patient required 5 L with ambulation and 2 L at rest, will assess tomorrow. If patient tolerating medication will likely DC but given his multiple medical comorbidities do think is reasonable to monitor after first dose to verify stability # Multilevel degenerative changes of spine -Has multiple chronic changes -Queried T12 compression fracture subacute versus chronic -Has history of lumbar surgery -Supportive care -No neurodeficits appreciated, equal strength bilaterally in extremities, sensation equal in extremities, reports his pain is similar in distribution to his chronic pain but a little bit worse since the fall but no focal changes and appears to follow with pain management on an outpatient basis -Given no focal complaints recommend outpatient follow-up, does not seem to need acute neurosurgical intervention -Patient did report pain 10 out of 10 or above but appears comfortable on my exam, reports he was having spasms on presentation but this seems to be a little bit better, suspect patient has different pain tolerance and scale given his chronic pain and chronic opioid medications -Symptomatic care -PT/OT -04/17: Follows with Dr. Rust, reports he gets a topical medication for his pain and has had procedures, asked about any oral pain medications that he is given and he just talked about Tylenol and a compounded product that he uses topically. He had asked about pain medication to go home with with some of his increased pain, discussed that he could be prescribed a couple of days worth but given he is in pain management he will need to discuss with his doctor before filling any prescriptions so this does not interfere with his chronic care, he verbalized his understanding. Will go home with home health -04/18: Continue supportive care #Paroxysmal Atrial Fibrillation -Rate control: Amiodarone -Anticoagulation: Xarelto -04/17: Hemoglobin little bit lower today, repeat in the a.m., no evidence of ongoing blood loss and no new complaints that would suggest any bleeding, will continue home medications at this time -04/18: Hemoglobin stable today #Aortic stenosis -Echocardiogram with [facility] on 02/12/2025 showed LV function 64?5% and severe aortic valve stenosis with mean aortic valve gradient 34 mmHg, aortic valve area 0.61 cm?, peak aortic valve gradient 58 mm minute, and dimensionless valve index of 0.22 - Patient reportedly supposed to have a valve replaced next month -04/17: Supportive care provided regarding patient's frustration over not having his valve replaced yet -04/18: Will need to follow-up on May 01 for his previously scheduled appointment # History of chronic combined heart failure -Most recent echo in our system 12/24/2024 with apical akinesis to dyskinesis with an EF of 40% and grade 2 diastolic dysfunction -Will continue patient's home medications, resume spironolactone tomorrow -daily weights, I?s and o?s -04/17: Continue home regimen, actually appears patient has lost weight and legs have wrinkles on them at this time, appears less overloaded than he did on presentation -04/18: Again appears even further improved, adding prednisone due to concern for interstitial lung disease, monitor fluid status, would likely need to be monitoring daily weights at home to assess need for any adjustment in diuretics Chronic medical problems and/or problems not being actively addressed during today's encounter: #RA - Continue home medications #Hx of CAD -w/ previous stenting -Continue home medications # 0.4 cm nodule in right lower lung -Follow-up will be recommended -Follow-up with PCP on discharge #Chronic BPH with obstruction -History of TURP -Continue home medications #DVT ppx: Not indicated, patient already on Xarelto Aisha Vega MD Charges/Coding Visit Charges Inpatient E&M: 12254 Subs Hosp L2
[2025-04-18] MEDS: MELATONIN 10 MG TABLET PO (22:38)
[2025-04-19 03:24] VITALS: BMI 26.5
[2025-04-19 03:27] VITALS: BP 124/51; PULSE 75; RESP 18; TEMP 37.2; O2SAT 97
[2025-04-19 05:48] LABS: Hematocrit 26.2 % (40-54); Hemoglobin 8.5 g/dL (13.0-16.5); Mean Corp Hgb Conc 32.4 g/dL (32-36); Mean Corpuscular Volume 104.0 fL (80-94); Mean Platelet Vol. 9.4 fl (6.2-12.0); Platelet Count 171 K/mm3 (150-450); RBC Distribution Width CV 15.7 % (11.6-14.6); RBC Distribution Width SD 59.0 fl (35.1-43.9); Red Blood Count 2.52 M/mm3 (4.6-6.2); White Blood Count 4.0 K/mm3 (4.4-11.0)
[2025-04-19 06:30] LABS: Anion Gap 8 (5-15); BUN 18 mg/dL (4-19); BUN/Creat Ratio 23.6 RATIO (10-20); Calcium,Total 8.5 mg/dL (7.6-11.0); Carbon Dioxide 25.6 mmol/L (21.0-32.0); Chloride 101 mmol/L (98-108); Estimated Creatinine Clearance 55.02 ml/min (50-250); Glucose 137 mg/dL (70-99); Potassium 4.7 mmol/L (3.3-5.1)
[2025-04-19 09:00] VITALS: O2SAT 95
[2025-04-19 09:14] VITALS: BP 96/61; PULSE 77; RESP 16; TEMP 36.4; O2SAT 95
[2025-04-19] MEDS: Arthritis Pain Compound 60 CLICK TUBE TOPICAL (09:48)
[2025-04-19] MEDS: Senna/Docusate Sodium 1 Tablet 2 TABLET PO (09:50)
[2025-04-19 09:53] VITALS: BP 100/55
[2025-04-19 12:00] VITALS: O2SAT 90; O2SAT 94
--- NOTE | 2025-04-19 14:19 | DCINST_ITS ---
Discharge Instructions DC O2, CPAP, BIPAP needs Home O2 Discharge instructions: No Dressing / Incision Discharge Activity: - (Increase activity as tolerated) Follow Up Care Test Results: Test results from this visit will be discussed in further detail at your follow- up appointment, if applicable. Discharge Plan Admission Admit Date/Time: 04/16/25 08:35 Primary Reason for Your Visit: Fall Attending Provider: Aisha Vega Primary Care Provider: Jorge Hilton Instructions Patient Instructions: ED Fall Prevention Additional Instructions / Restrictions: DISCHARGE INSTRUCTIONS PLEASE READ *Please take this with you to your next doctors appointment* - You will need to take 3 more days of prednisone 40 mg for your lungs, this has been sent in to preferred pharmacy on file -Several days of pain medication was sent to your preferred pharmacy on file mai pickard the reports of pain -Please followup with pulmonology on discharge to be evaluated for possible chronic lung disease or inflammation, please call the office on Monday to schedule an appointment -Please call your primary care provider's office upon discharge to schedule a hospital follow up within 1 week. -For any concerning signs or symptoms please call 911 or proceed to the nearest emergency department Discharge Orders/Prescriptions Prescriptions: New oxycodone 5 mg Tablet 5 mg PO Q6H PRN PRN (Reason: Pain Score 4-10) 3 Days Qty: 15 0RF prednisone 20 mg Tablet 40 mg PO BREAKFAST 3 Days Qty: 6 0RF Rx Instructions: Starting 04/20 Continued Prolia 60 mg/mL syringe 60 mg subcut [id number] Qty: 1 1RF turmeric root extract 500 mg capsule 500 mg PO QDAY mecobalamin (vitamin B12) 2,500 mcg tablet,chewable 2,500 mcg PO DAILY ascorbic acid (vitamin C) 1,000 mg capsule 1,000 mg PO QDAY oxybutynin chloride 10 mg tablet extended release 24hr 10 mg PO QDAY Xarelto 15 mg tablet 15 mg PO QDAY 90 Days Qty: 90 3RF Patient Comments: WILL CHECK WITH [facility] ON WHEN STOP TAKING spironolactone 25 mg tablet 25 mg PO DAILY Qty: 90 3RF polysaccharide iron complex [Ferrex 150] 150 mg iron capsule 150 mg PO QDAY 90 Days Qty: 90 3RF tamsulosin 0.4 MG capsule 0.4 mg PO DAILY@1800 trazodone 100 mg tablet 100 mg PO QHS Simponi ARIA 12.5 mg/mL Solution 12.5 mg IV .[id number] Patient Comments: PT GOES TO GET INJECTION EVERY 8 WEEKS CAN NOT REMEMBER LAST SHOT gabapentin 300 mg capsule 300 mg PO TID PRN PRN (Reason: NERVE PAIN) Patient Comments: Take 1 (one) Capsule by mouth three times daily, as needed methotrexate sodium 2.5 mg tablet 20 mg PO QWEEK sulfasalazine 500 mg tablet,delayed release (DR/EC) 0.5 g PO Q12H mirtazapine 15 mg tablet 7.5 mg PO QHS clopidogrel 75 mg tablet 75 mg PO DAILY furosemide 40 mg tablet 40 mg PO .2xweek finasteride 5 mg tablet 5 mg PO DAILY acetaminophen [Tylenol Arthritis Pain] 650 mg tablet extended release 650 mg PO Q4H PRN PRN (Reason: pain) atorvastatin [Lipitor] 40 mg tablet 40 mg PO QHS Qty: 90 3RF amiodarone 200 mg tablet 200 mg PO DAILY Qty: 90 3RF Discontinued hydrocodone-acetaminophen 7.5-325 mg tablet 1 tab PO BID Referrals / Follow Up: Nato Smith DO [Med Staff - Active Staff, Pulmonary Medicine] Referral Note: -Please followup with pulmonology on discharge to be evaluated for possible chronic lung disease or inflammation, please call the office on Monday to schedule an appointment Jorge Hilton MD [Primary Care Provider, Family Practice] - Within 1 Week Disposition Disposition (needs filled in before D/C Order can be placed): Home Health Service
--- NOTE | 2025-04-19 14:40 | DS.PCM_ITS ---
Providers Date of Admission: 04/16/25 Date of Discharge: 04/20/25 Primary Care Physician: Dr. Jorge Hilton MD Reason For Visit: FALL, PAIN Diagnosis Discharge Diagnosis (1) Accidental fall: Status: Acute Code(s): W19.XXXA - Unspecified fall, initial encounter (2) Chronic lung disease: Status: Chronic Code(s): J98.4 - Other disorders of lung (3) Aortic valve stenosis: Status: Chronic Code(s): I35.0 - Nonrheumatic aortic (valve) stenosis Qualifiers: Cardiac valve disease etiology: nonrheumatic Qualified Code(s): I35.0 - Nonrheumatic aortic (valve) stenosis (4) Chronic pain: Status: Chronic Code(s): G89.29 - Other chronic pain Plan # Fall and generalized weakness # Hypoxia and likely chronic lung pathology # Multilevel degenerative changes of spine #Paroxysmal Atrial Fibrillation #Aortic stenosis # History of chronic combined heart failure #RA #Hx of CAD # 0.4 cm nodule in right lower lung -Follow-up will be recommended #Chronic BPH with obstruction Medications at Discharge Home Medications tamsulosin 0.4 mg capsule 0.4 mg PO DAILY@1800 Retention 07/18/20 golimumab 12.5 mg/mL intravenous solution (Simponi ARIA) 12.5 mg IV .[id number] injection 05/31/22 gabapentin 300 mg capsule 300 mg PO TID PRN PRN NERVE PAIN 10/20/22 trazodone 100 mg tablet 100 mg PO QHS Check with primary doctor 11/14/22 denosumab 60 mg/mL subcutaneous syringe (Prolia) 60 mg subcut [id number] unsure #1 mL 03/10/23 methotrexate sodium 2.5 mg tablet 20 mg PO QWEEK RA 06/01/23 sulfasalazine 500 mg tablet,delayed release 0.5 g PO Q12H unsure 06/01/23 ascorbic acid (vitamin C) 1,000 mg capsule 1,000 mg PO QDAY supplement 10/23/24 mecobalamin (vitamin B12) 2,500 mcg chewable tablet 2,500 mcg PO DAILY supplement 10/23/24 mirtazapine 15 mg tablet 7.5 mg PO QHS unsure 10/23/24 oxybutynin chloride 10 mg tablet,extended release 24 hr 10 mg PO QDAY bladder control 10/23/24 rivaroxaban 15 mg tablet (Xarelto) 15 mg PO QDAY 90 days #90 tabs 10/23/24 spironolactone 25 mg tablet 25 mg PO DAILY water pill #90 tabs 10/23/24 turmeric root extract 500 mg capsule 500 mg PO QDAY unsure 10/23/24 atorvastatin 40 mg tablet (Lipitor) 40 mg PO QHS Cholesterol #90 tabs 12/09/24 polysaccharide iron complex 150 mg iron capsule (Ferrex) 150 mg PO QDAY 90 days #90 caps 12/13/24 amiodarone 200 mg tablet 200 mg PO DAILY heart rate #90 tabs 12/17/24 acetaminophen 650 mg tablet,extended release (Tylenol Arthritis Pain) 650 mg PO Q4H PRN PRN pain 04/16/25 clopidogrel 75 mg tablet 75 mg PO DAILY stent 04/16/25 finasteride 5 mg tablet 5 mg PO DAILY bph 04/16/25 furosemide 40 mg tablet 40 mg PO .2xweek fluid 04/16/25 oxycodone 5 mg tablet 5 mg PO Q6H PRN PRN Pain Score 4-10 3 days #15 tabs 04/19/25 prednisone 20 mg tablet 40 mg (2 x 20 mg) PO BREAKFAST 3 days #6 tabs 04/19/25 Hospital Course Summary of Care Provided Minutes Spent on Discharge: 24 Hospital Course: BRYCE ANN, is a 84-year-old male history of BPH, rheumatoid arthritis, A-fib, spinal stenosis, CHF, coronary artery disease, aortic stenosis who presented to [facility] ED 04/16/2025 after mechanical fall. Patient had mechanical fall at home after losing balance and was down for almost a day. Pt didn?t have his cell phone or life alert and was unable to get up. Eventually pt was able to get to his car keeps and set off the car alarm, he was subsequently brought to the ED. in ED workup negative for acute process but did show chronic changes in the spine, given patient's concerns about going home alone as well as pain concerns hospitalist contacted for admission. Patient worked with physical therapy and did well, pain was brought under better control with medications that were ordered. He was noted to have hypoxia despite not having any increase in shortness of breath from baseline or cough, CT scan on presentation showed some fibrotic appearing changes, discussed with pulmonology and he likely has interstitial lung disease, is advised to give 40 of prednisone for 5 days and have him follow-up in the office with pulm for further workup and management. After patient was started on the steroids he went from 5 L with ambulation and to at rest to not needing oxygen at rest or ambulation. Discussed with him the importance of following up with pulmonology and also keeping his appointment May 01 for further workup and treatment of his aortic stenosis. On day of discharge patient with no new or acute complaints, tolerated 2 doses of prednisone well and was able to be discharged home in stable condition with instructions to follow-up Physical Exam Narrative General: Alert, oriented, no apparent distress HEENT: Atraumatic, normocephalic, lips and tips of fingers with bluish hue which he reports is not new, appear little better on day of discharge Eyes: Anicteric, normal conjunctiva, extraocular movements grossly intact Neck: Supple Respiratory: Possibly some fine crackles in the bases, normal respiratory effort Cardiovascular: Regular rate and rhythm GI: Soft, nontender, nondistended Extremities: Lower extremities with wrinkles Musculoskeletal: Moving all extremities Neuro: No overt focal neurological deficits Skin: No rashes appreciated Psych: Overall cooperative Weight / BMI Weight Weight: 61.6 kg Body Mass Index (BMI) 26.5 ABG / Lab / Microbiology Data 04/19/25 05:16 04/19/25 05:16 Laboratory: Laboratory Results - last 24 hr 04/19/25 05:16: WBC 4.0 L, RBC 2.52 L, Hgb 8.5 L, Hct 26.2 L, MCV 104.0 H, MCH 33.7 H, MCHC 32.4, RDW Std Deviation 59.0 H, RDW Coeff of Jaciel 15.7 H, Plt Count 171, MPV 9.4, Sodium 135, Potassium 4.7, Chloride 101, Carbon Dioxide 25.6, Anion Gap 8, BUN 18, Creatinine 0.75, Estim Creat Clear Calc 55.02, Est GFR (MDRD) Non-Af 90, BUN/Creatinine Ratio 23.6 H, Glucose 137 H, Calcium 8.5 D/C Instructions DC O2, CPAP, BIPAP Needs Home O2 Discharge instructions: No Meaningful Use Info Meaningful Use Meaningful Use Diagnoses (Choose all that apply): None applicable Discharge Plan Admission Admit Date/Time: 04/16/25 08:35 Primary Reason for Your Visit: Fall Attending Provider: Aisha Vega Primary Care Provider: Jorge Hilton Instructions Patient Instructions: ED Fall Prevention Additional Instructions / Restrictions: DISCHARGE INSTRUCTIONS PLEASE READ *Please take this with you to your next doctors appointment* - You will need to take 3 more days of prednisone 40 mg for your lungs, this has been sent in to preferred pharmacy on file -Several days of pain medication was sent to your preferred pharmacy on file given the reports of pain -Please followup with pulmonology on discharge to be evaluated for possible chronic lung disease or inflammation, please call the office on Monday to schedule an appointment -Please call your primary care provider's office upon discharge to schedule a hospital follow up within 1 week. -For any concerning signs or symptoms please call 911 or proceed to the nearest emergency department Discharge Orders/Prescriptions Prescriptions: New oxycodone 5 mg Tablet 5 mg PO Q6H PRN PRN (Reason: Pain Score 4-10) 3 Days Qty: 15 0RF prednisone 20 mg Tablet 40 mg PO BREAKFAST 3 Days Qty: 6 0RF Rx Instructions: Starting 04/20 Continued Prolia 60 mg/mL syringe 60 mg subcut [id number] Qty: 1 1RF turmeric root extract 500 mg capsule 500 mg PO QDAY mecobalamin (vitamin B12) 2,500 mcg tablet,chewable 2,500 mcg PO DAILY ascorbic acid (vitamin C) 1,000 mg capsule 1,000 mg PO QDAY oxybutynin chloride 10 mg tablet extended release 24hr 10 mg PO QDAY Xarelto 15 mg tablet 15 mg PO QDAY 90 Days Qty: 90 3RF Patient Comments: WILL CHECK WITH [facility] ON WHEN STOP TAKING spironolactone 25 mg tablet 25 mg PO DAILY Qty: 90 3RF polysaccharide iron complex [Ferrex 150] 150 mg iron capsule 150 mg PO QDAY 90 Days Qty: 90 3RF tamsulosin 0.4 MG capsule 0.4 mg PO DAILY@1800 trazodone 100 mg tablet 100 mg PO QHS Simponi ARIA 12.5 mg/mL Solution 12.5 mg IV .[id number] Patient Comments: PT GOES TO GET INJECTION EVERY 8 WEEKS CAN NOT REMEMBER LAST SHOT gabapentin 300 mg capsule 300 mg PO TID PRN PRN (Reason: NERVE PAIN) Patient Comments: Take 1 (one) Capsule by mouth three times daily, as needed methotrexate sodium 2.5 mg tablet 20 mg PO QWEEK sulfasalazine 500 mg tablet,delayed release (DR/EC) 0.5 g PO Q12H mirtazapine 15 mg tablet 7.5 mg PO QHS clopidogrel 75 mg tablet 75 mg PO DAILY furosemide 40 mg tablet 40 mg PO .2xweek finasteride 5 mg tablet 5 mg PO DAILY acetaminophen [Tylenol Arthritis Pain] 650 mg tablet extended release 650 mg PO Q4H PRN PRN (Reason: pain) atorvastatin [Lipitor] 40 mg tablet 40 mg PO QHS Qty: 90 3RF amiodarone 200 mg tablet 200 mg PO DAILY Qty: 90 3RF Discontinued hydrocodone-acetaminophen 7.5-325 mg tablet 1 tab PO BID Referrals / Follow Up: Nato Smith DO [Med Staff - Active Staff, Pulmonary Medicine] Referral Note: -Please followup with pulmonology on discharge to be evaluated for possible chronic lung disease or inflammation, please call the office on Monday to schedule an appointment Jorge Hilton MD [Primary Care Provider, Family Practice] - Within 1 Week Disposition Disposition (needs filled in before D/C Order can be placed): Home Health Service Charges/Coding Visit Charges Inpatient E&M: 52306 Disch Hosp
[2025-04-19 15:30] VITALS: BP 112/53; PULSE 74; RESP 18; TEMP 37; O2SAT 93
== END 2025-04-19 16:38 | disposition home health service (06) | DRG 948 ==
LOC: ED 07:54 → PCU 08:42
PROVIDERS: Admitting Provider Internal Medicine; Emergency Provider Emergency Medicine; PCP Family Medicine; Visit Provider Internal Medicine
DX: R53.1 Weakness (principal); D61.818 Other pancytopenia; I50.42 Chronic combined systolic (congestive) and diastolic (congestive) heart failure; N13.8 Other obstructive and reflux uropathy; S09.90XA Unspecified injury of head, initial encounter; M06.9 Rheumatoid arthritis, unspecified; I35.0 Nonrheumatic aortic (valve) stenosis; I48.0 Paroxysmal atrial fibrillation; R26.2 Difficulty in walking, not elsewhere classified; E78.5 Hyperlipidemia, unspecified; I25.10 Atherosclerotic heart disease of native coronary artery without angina pectoris; J98.4 Other disorders of lung; I25.2 Old myocardial infarction; W18.39XA Other fall on same level, initial encounter; Z87.891 Personal history of nicotine dependence; Z79.01 Long term (current) use of anticoagulants; Z95.5 Presence of coronary angioplasty implant and graft; N40.1 Benign prostatic hyperplasia with lower urinary tract symptoms; R09.02 Hypoxemia; G89.29 Other chronic pain; Z79.899 Other long term (current) drug therapy; Z79.02 Long term (current) use of antithrombotics/antiplatelets; Z90.49 Acquired absence of other specified parts of digestive tract; Z98.52 Vasectomy status; Z79.891 Long term (current) use of opiate analgesic; Y92.009 Unspecified place in unspecified non-institutional (private) residence as the place of occurrence of the external cause; M51.360 Other intervertebral disc degeneration, lumbar region with discogenic back pain only
CPT/HCPCS: 36415; 70450; 71250; 72125; 72128; 72131; 72170; 80048; 80053; 81001; 82248; 82550; 85025; 85027; 85610; 85730; 94668; 97110; 97116; 97162; 97166; 97530; 97535; 99285; A4216; J2405